=== PATIENT | female | born 1955 | race Caucasian/White ===

== ENCOUNTER 2018-02-21 12:49 | Observation (INO) | payer MEDICAID, SELFPAY ==
[2018-02-21] VITALS (11 sets, daily range): BP systolic 114–184; BP diastolic 82–102; PULSE 69–106; RESP 15–20; TEMP 36.7–37.3; O2SAT 88–99; BMI 20.7; BMI 20.8; BMI 21.1
[2018-02-21] MEDS: 0.9% Normal Saline 1,000 ML 1000 ML IV (13:40)
[2018-02-21] MEDS: Ondansetron 4 MG/2 ML Vial IV (13:40)
--- NOTE | 2018-02-21 13:43 | RAD_ITS ---
STUDY: X-RAY CHEST REASON FOR EXAM: Female, 62 years old. Persistent cough. Asthma. COPD. TECHNIQUE: PA and lateral views of the chest. COMPARISON: Comparison is made with prior study dated February 01, 2017. FINDINGS: EKG electrodes are seen. Hyperinflation. Scattered calcified granulomas. There is no demonstrated pleural abnormality. Normal size heart. Normal mediastinum and estrellita. Normal visualized pulmonary arteries. Normal visualized aortic arch and descending thoracic aorta. Normal visualized thoracic spine. Healed right ninth and 10th rib fractures. Prior fusion of the lower cervical spine. There is no demonstrated abnormality of the visualized soft tissue structures of the upper abdomen. RAD/Chest PA and Lateral IMPRESSION: Hyperinflation. No acute abnormality is seen. There has been no change since prior study. Electronically Signed: Marty Foote MD at 14:28 EDT Tel [phone], Service support ,
[2018-02-21 13:56] LABS: Absolute Lymphocyte Count 1.29 X10^3/ul (0.83-4.51); Absolute Neutrophil Count 2.2 X10^3/uL (2.0-7.7); Basophil# 0.02 X10^3/uL; Basophil% 0.5 % (0-1); Eosinophil# 0.07 X10^3/uL; Eosinophils% 1.7 % (0-5); Hemoglobin 13.9 g/dl (12.0-15.0); Lymphocyte # 1.29 X10^3/ul (4.0); Lymphocyte % 30.6 % (19-41); Mean Corp Hgb Conc 33.9 g/gl (32-36); Mean Corpuscular Hgb 32.9 pg (27.0-32.0); Mean Corpuscular Volume 97.2 fL (81-99); Mean Platelet Vol. 12.1 fl (6.2-12.0); Monocyte# 0.59 X10^3/uL; Neutrophil # 2.23 X10^3/uL (2.7-7.7); Neutrophil % 52.7 % (47-70); Platelet Count 98 K/mm3 (150-450); RBC Distribution Width CV 14.9 % (11.6-14.6); RBC Distribution Width SD 52.5 fl (35.1-43.9); Red Blood Count 4.22 M/mm3 (4.2-5.4); White Blood Count 4.2 K/mm3 (4.4-11.0)
[2018-02-21 13:57] LABS: POSITIVE COUNT NO; POSITIVE DIFFERENTIAL NO; POSITIVE MORPHOLOGY NO
[2018-02-21 14:04] LABS: Anion Gap 8 (5-15); BUN 5 mg/dL (7-18); BUN/Creat Ratio 9.1 RATIO (10-20); Calcium,Total 7.5 mg/dL (8.5-10.1); Chloride 99 mmol/L (98-107); Creatinine, Serum 0.55 mg/dL (0.55-1.02); EST Glomerular Filtration Rate 120 mL/min (>60); Est Glom Filt Rate - Afr Amer 145 mL/min (>60); Estimated Creatinine Clearance 94.78 ml/min; Glucose 94 mg/dL (74-106); Potassium 3.7 mmol/L (3.5-5.1); Sodium Level 133 mmol/L (136-145)
[2018-02-21] MEDS: Acetaminophen 500 MG Tablet 1000 MG PO (14:36)
--- NOTE | 2018-02-21 15:39 | ED.DCSUM_ITS ---
- ER Visit Summary Date of Service: 02/21/18 Chief Complaint: Alcohol withdrawal. History of Present Illness: The patient is a [address] Hermosillo. She reports that she drinks 12 beers per day. She occasionally has liquor. She does not drink any wine. Last drink was 2 hours ago and she reports that she has had 6 beers today. She is concerned that she is in alcohol withdrawal and is spoken with [facility] already. She was sent here for medical clearance as she reported that she was vomiting. Patient denies any abdominal pain. She reports she is vomited 3 times a day. No blood or emesis. She had 4-5 episodes of diarrhea today. No blood in her stools or black tarry stools. She has a cough that is productive clear sputum without blood. Physical Examination: Vitals: Stable. Afebrile. General: Well-nourished and well-developed. Head: Normocephalic atraumatic. Neck: Supple, no lymphadenopathy. No JVD. Nontender. Cardiovascular: Regular rate and rhythm. No murmurs. Respiratory: No respiratory distress. Moderate wheezing bilaterally with good air movement. Abdominal: Soft, nontender, nondistended, normal bowel sounds. No guarding, rebound, or peritoneal signs. Back: Nontender. Extremities: Nontender, no edema. Skin: Normal color, no rash. Neurologic: Alert and oriented ?3. Cranial nerves II through XII are intact. Normal strength and sensation. Psych: Normal affect. Test Results: Chest x-ray shows chronic changes. CBC is marked for white count of 4.2 with 14 mono sites and 98 platelets. Chem-7 more for sodium 133, glucose 112, BUN of 5, calcium 7.5. Alcohol level is 176. Emergency Department Course and Treatment: Patient was treated albuterol Atrovent aerosols. She is given Zofran IV and Tylenol p.o. She is resting comfortably. Treatment Plan: The patient was discussed with [facility]. They have seen her in the emergency department and feel that she is appropriate for their program. She was discussed with Dr. Teague and will be admitted to the hospital for further relation and treatment. Disposition: Admitted in improved condition. Impression: 1. Alcohol abuse. 2. COPD. This note was generated with [employer] software. It may contain incorrect words, spelling, and punctuation that were not noted in review of the chart prior to signing ED Disposition - Plan for ED Patient: Chief Complaint: Subst Abuse
[2018-02-21] MEDS: Ipratropium/Albuterol Sulfate 3 ML AMPUL.NEB INHALATION ×2 (15:42→19:30)
--- NOTE | 2018-02-21 16:03 | HP.PCM_ITS ---
Problem List (1) Tobacco abuse Status: Chronic (2) Alcohol abuse Status: Chronic (3) Depression Status: Chronic (4) Chronic obstructive lung disease Status: Chronic (5) Benign hypertension Status: Chronic History of Present Illness Date of Admission: 02/21/18 Chief Complaint: Alcohol withdrawal The patient is a 62 year old F who presents through [facility] program for acute alcohol withdrawal. Patient has a history of chronic alcoholism and states she has used alcohol since she was 10 years old and currently drinks a 12 pack per day. She last drank a 6 pack this morning. She has a 1-1-1/2 pack per day smoker. She currently complains of tremors and headache. She states she has completed a detox program in the past. She denies history of seizure with withdrawal. Her other past medical history includes COPD, hypertension, depression, tobacco dependence. Past Medical History Past Medical History (Chronic Problems): Chronic Problems Tobacco abuse (Chronic) Alcohol abuse (Chronic) Depression (Chronic) Chronic obstructive lung disease (Chronic) Benign hypertension (Chronic) Allergies No Known Allergies Allergy (Verified 07/29/17 15:15) Home Medications: Ambulatory Orders Medication Instructions Recorded Albuterol Inhaler [Ventolin Hfa] 2 puff INHALATION Q2H PRN #1 05/25/14 inhaler Metoprolol Tartrate [Lopressor 25 mg PO BID 02/01/17 (beta chito)] Omeprazole [Prilosec] 40 mg PO DAILY 02/01/17 Paroxetine HCl [Paxil] 30 mg PO DAILY 02/01/17 traZODone [Desyrel] 100 mg PO QHS 02/01/17 Amlodipine [Norvasc] 5 mg PO DAILY 07/29/17 Hydroxyzine Pamoate [Vistaril] 50 mg PO TID PRN PRN 07/29/17 Lisinopril [Zestril] 40 mg PO DAILY 07/29/17 Surgical History: appendectomy, cholecystectomy Psychiatric History: Anxiety, Depression Smoking Status: Current every day smoker Tobacco Use: Secondhand, Cigarettes - *Family History Maternal History Items: Cancer - Liver Paternal History Items: Cancer - Lung Review of Systems Constitutional: Reports: Malaise. Denies: Chills, Fever, Weight Change HEENT: Denies: Head Aches, Sinus Congestion, Sinus Drainage Cardiovascular: Denies: Chest Pain, Light Headedness, Palpitations, Syncope Respiratory: Reports: Shortness of Breath. Denies: Cough, Sputum production Gastrointestinal: Denies: Abdominal Pain, Nausea, Vomiting Genitourinary: Denies: Dysuria Musculoskeletal: Denies: Joint Pain, Joint Tenderness Skin: Denies: Rash, Wounds Neurological: Reports: Headaches, Tremor. Denies: Focal weakness, Numbness, Tingling Psychiatric: Reports: Anxiety, Depression Hematologic/ Lymphatic: Denies: Easy Bruising, Easy Bleeding VTE Information - Inpt Only VTE Present on Admission: No VTE Mechan Device Prophylaxis: None VTE Pharm Prophylaxis ordered?: No Reason prophylaxis not ordered:: Treatment Not Indicated - Physical Exam General: Alert, Oriented x3, Cooperative, - - Appears restless, tearful HEENT: Atraumatic, PERRLA, EOMI, Normocephalic Oral: - - Poor dentition Neck: Supple, No JVD, Negative Carotid Bruits Lungs: Diminished, Wheezes Cardiovascular: Regular Rhythm, Normal S1, Normal S2, No murmurs, Tachycardic Abdomen: Bowel Sounds Present, Soft, Non Tender, Non-Distended Extremities: No clubbing, No cyanosis, No edema, Capillary Refill Less than 3 Seconds Skin: No rashes, No breakdown Musculoskeletal: No Tenderness to Palpation of Joints or Extremities Neurological: Cranial nerves II-XII grossly intact, Neuro grossly intact Psych/Mental Status: Anxious, Restless Vital Signs Temp Pulse Resp BP Pulse Ox 98.3 F 92 20 H 153/95 H 95 02/21/18 12:50 02/21/18 15:12 02/21/18 15:12 02/21/18 15:12 02/21/18 15:12 Assessment/Plan 1. Acute alcohol withdrawal/alcohol abuse-medical stabilization per protocol. Folic acid and thiamine supplementation. CIWA protocol. Zofran as needed for nausea. Alcohol level on admission 176. 2. COPD with acute hypoxia-no acute exacerbation. Continue albuterol aerosol as needed for shortness of breath. Continue supplemental oxygen as needed to maintain O2 at or above 90%. Wean oxygen as tolerated. 3. Hypertension-stable, continue home regimen of amlodipine, lisinopril, metoprolol. 4. Tobacco dependence-encourage smoking cessation. Nicotine replacement patch if desired. 5. Depression-continue home regimen of fluoxetine, trazodone. 6. GERD-continue omeprazole. DVT prophylaxis- This patient was seen by FRANCISCO Carias under the supervision of Dr. Teague.
[2018-02-21] MEDS: Acetaminophen 325 MG Tablet 650 MG PO (17:00)
[2018-02-21] MEDS: LORazepam 2 MG/ML Syringe IV (17:01)
[2018-02-21] MEDS: cloNIDine HCl 0.1 MG Tablet PO ×2 (18:05→22:23)
[2018-02-21] MEDS: Metoprolol Tartrate 25 MG Tablet PO (22:23)
[2018-02-21] MEDS: chlordiazePOXIDE 25 MG Capsule PO (22:23)
[2018-02-21] MEDS: traZODone 100 MG Tablet PO (22:23)
[2018-02-22] VITALS (13 sets, daily range): BP systolic 97–115; BP diastolic 50–84; PULSE 60–83; RESP 14–20; TEMP 36.6–37.3; O2SAT 95–99
[2018-02-22] MEDS: Ipratropium/Albuterol Sulfate 3 ML AMPUL.NEB INHALATION ×3 (00:35→13:12)
[2018-02-22] MEDS: cloNIDine HCl 0.1 MG Tablet PO ×6 (03:18→21:11)
[2018-02-22] MEDS: chlordiazePOXIDE 25 MG Capsule PO ×3 (03:18→16:53)
[2018-02-22] MEDS: Folic Acid 1 MG Tablet PO (08:50)
[2018-02-22] MEDS: Pantoprazole Sodium 40 MG Tablet PO (08:50)
[2018-02-22] MEDS: PARoxetine 10 MG Tablet 30 MG PO (08:50)
[2018-02-22] MEDS: Thiamine Hydrochloride 100 MG Tablet PO (08:50)
--- NOTE | 2018-02-22 09:31 | PCM.PROGNOTE ---
Subjective: Patient seen and examined. States anxiety is improved. Complains of sore throat and sore spot on tongue. Patient states she has had a spot on her tongue in the past which was biopsied and found to be benign. She states the sore has seemed to reappear. Denies nausea, vomiting, diarrhea. Denies other current complaints. - Physical Exam General: Alert, Oriented x3, Cooperative, No apparent distress HEENT: Atraumatic, PERRLA, EOMI, Normocephalic Neck: Supple, No JVD, Negative Carotid Bruits Lungs: Diminished, Wheezes Cardiovascular: Regular rate, Regular Rhythm, Normal S1, Normal S2, No murmurs Abdomen: Bowel Sounds Present, Soft, Non Tender, Non-Distended Extremities: No clubbing, No cyanosis, No edema, Capillary Refill Less than 3 Seconds Skin: No rashes, No breakdown Musculoskeletal: No Tenderness to Palpation of Joints or Extremities Neurological: Cranial nerves II-XII grossly intact, Neuro grossly intact Psych/Mental Status: Flat Affect Vital Signs Temp Pulse Resp BP Pulse Ox 98.5 F 60 18 97/50 L 96 02/22/18 08:45 02/22/18 08:45 02/22/18 08:45 02/22/18 08:45 02/22/18 08:35 Oxygen Flow Rate (L/min) 2 Oxygen Delivery Method Room Air Weight: 57.6 kg Body Mass Index (BMI) 21.1 Intake and Output for Last 24 Hours 02/20/18 02/21/18 02/22/18 23:59 23:59 23:59 Intake Total 200 / 200 Balance 200 / 200 Medical Necessity - Tobacco Use Smoking Status: Current every day smoker Tobacco Use: Secondhand, Cigarettes Assessment/Plan 1. Acute alcohol withdrawal/alcohol abuse-medical stabilization per protocol. Folic acid and thiamine supplementation. [facility] protocol. Zofran as needed for nausea. Alcohol level on admission 176. 2. COPD with acute hypoxia-no acute exacerbation. Continue albuterol aerosol as needed for shortness of breath. Continue supplemental oxygen as needed to maintain O2 at or above 90%. Wean oxygen as tolerated. 3. Hypertension-stable, continue home regimen of amlodipine, lisinopril, metoprolol. 4. Tobacco dependence-encourage smoking cessation. Nicotine replacement patch if desired. 5. Depression-continue home regimen of fluoxetine, trazodone. 6. GERD-continue omeprazole. DVT prophylaxis-not indicated due to low risk. This patient was seen by FRANCISCO Carias under the supervision of Dr. Teague.
[2018-02-22] MEDS: BENZOCAINE/MENTHOL 1 LOZENGE MUCOUS MEM ×3 (10:50→21:10)
--- NOTE | 2018-02-22 16:00 | CASEMGMT ---
Per physician documentation, patient admitted to [facility] program. Aurelia Prasad, BSN, RN-BC, CCM
[2018-02-22] MEDS: Ibuprofen 600 MG Tablet PO (16:54)
[2018-02-22] MEDS: Acetaminophen 325 MG Tablet 650 MG PO (21:10)
[2018-02-22] MEDS: Metoprolol Tartrate 25 MG Tablet PO (21:11)
[2018-02-22] MEDS: traZODone 100 MG Tablet PO (21:11)
[2018-02-23] VITALS (12 sets, daily range): BP systolic 99–173; BP diastolic 62–92; PULSE 59–72; RESP 16–20; TEMP 36.4–36.8; O2SAT 94–98
[2018-02-23] MEDS: chlordiazePOXIDE 25 MG Capsule PO ×3 (01:42→17:46)
[2018-02-23] MEDS: cloNIDine HCl 0.1 MG Tablet PO ×6 (01:43→21:12)
[2018-02-23] MEDS: Ibuprofen 600 MG Tablet PO ×2 (01:45→15:34)
[2018-02-23] MEDS: Ipratropium/Albuterol Sulfate 3 ML AMPUL.NEB INHALATION ×2 (07:28→13:23)
--- NOTE | 2018-02-23 08:46 | PCM.PROGNOTE ---
Subjective: Patient seen and examined. States she feels improved today. Complains of mild anxiety. Sore throat improved. States she wishes to talk to [facility] tomorrow about inpatient treatment facility at discharge. Denies other complaints. - Physical Exam General: Alert, Oriented x3, Cooperative, No apparent distress HEENT: Atraumatic, PERRLA, EOMI, Normocephalic Neck: Supple, No JVD, Negative Carotid Bruits Lungs: Clear to auscultation, Diminished Cardiovascular: Regular rate, Regular Rhythm, Normal S1, Normal S2, No murmurs Abdomen: Bowel Sounds Present, Soft, Non Tender, Non-Distended Extremities: No clubbing, No cyanosis, No edema, Capillary Refill Less than 3 Seconds Skin: No rashes, No breakdown Musculoskeletal: No Tenderness to Palpation of Joints or Extremities Neurological: Cranial nerves II-XII grossly intact, Neuro grossly intact Psych/Mental Status: Normal Affect, Appropriate Vital Signs Temp Pulse Resp BP Pulse Ox 97.9 F 61 20 H 130/73 H 94 02/23/18 06:06 02/23/18 07:29 02/23/18 07:29 02/23/18 06:06 02/23/18 07:29 Oxygen Flow Rate (L/min) 2 Oxygen Delivery Method Room Air Weight: 57.6 kg Body Mass Index (BMI) 21.1 Intake and Output for Last 24 Hours 02/21/18 02/22/18 02/23/18 23:59 23:59 23:59 Intake Total 1300 / 1300 829 / 829 Balance 1300 / 1300 829 / 829 Medical Necessity - Tobacco Use Smoking Status: Current every day smoker Tobacco Use: Secondhand, Cigarettes Assessment/Plan 1. Acute alcohol withdrawal/alcohol abuse-medical stabilization per protocol. Folic acid and thiamine supplementation. CIWA protocol. Zofran as needed for nausea. Alcohol level on admission 176. 2. COPD with acute hypoxia-no acute exacerbation. Hypoxia resolved. Continue albuterol aerosol as needed for shortness of breath. 3. Hypertension-stable, continue home regimen of amlodipine, lisinopril, metoprolol. 4. Tobacco dependence-encourage smoking cessation. Nicotine replacement patch if desired. 5. Depression-continue home regimen of fluoxetine, trazodone. 6. GERD-continue omeprazole. DVT prophylaxis-not indicated due to low risk. This patient was seen by FRANCISCO Carias under the supervision of Dr. Teague.
[2018-02-23] MEDS: Pantoprazole Sodium 40 MG Tablet PO (09:43)
[2018-02-23] MEDS: PARoxetine 10 MG Tablet 30 MG PO (09:43)
[2018-02-23] MEDS: Folic Acid 1 MG Tablet PO (09:43)
[2018-02-23] MEDS: Thiamine Hydrochloride 100 MG Tablet PO (09:43)
[2018-02-23] MEDS: traZODone 100 MG Tablet PO (21:12)
[2018-02-23] MEDS: Metoprolol Tartrate 25 MG Tablet PO (21:12)
[2018-02-24] VITALS (13 sets, daily range): BP systolic 116–159; BP diastolic 70–82; PULSE 57–67; RESP 16–22; TEMP 36.6–36.8; O2SAT 94–100
[2018-02-24] MEDS: cloNIDine HCl 0.1 MG Tablet PO ×4 (02:38→12:58)
[2018-02-24] MEDS: chlordiazePOXIDE 25 MG Capsule PO (06:12)
[2018-02-24] MEDS: Ipratropium/Albuterol Sulfate 3 ML AMPUL.NEB INHALATION ×2 (07:14→13:03)
[2018-02-24] MEDS: Folic Acid 1 MG Tablet PO (08:42)
[2018-02-24] MEDS: Thiamine Hydrochloride 100 MG Tablet PO (08:42)
[2018-02-24] MEDS: Metoprolol Tartrate 25 MG Tablet PO (08:45)
[2018-02-24] MEDS: Lisinopril 40 MG Tablet PO (08:46)
[2018-02-24] MEDS: Pantoprazole Sodium 40 MG Tablet PO (08:46)
[2018-02-24] MEDS: amLODIPine 5 MG Tablet PO (08:46)
[2018-02-24] MEDS: PARoxetine 10 MG Tablet 30 MG PO (08:46)
--- NOTE | 2018-02-24 09:20 | DCINST_ITS ---
You will use the following diet at home:: Cardiac Discharge Activity: Return to Normal Activity Call your doctor if you observe: Shortness of breath, Dizziness, Fainting spells , Chest pain Allergies/Adverse Reactions: Allergies No Known Allergies Allergy (Verified 07/29/17 15:15) Medications to take at Discharge Albuterol Inhaler [Ventolin Hfa] 2 puff INHALATION Q2H PRN #1 inhaler 05/25/14 Metoprolol Tartrate [Lopressor (beta chito)] 25 mg PO BID 02/01/17 Omeprazole [Prilosec] 40 mg PO DAILY 02/01/17 Paroxetine HCl [Paxil] 30 mg PO DAILY 02/01/17 traZODone [Desyrel] 100 mg PO QHS 02/01/17 Amlodipine [Norvasc] 5 mg PO DAILY 07/29/17 Hydroxyzine Pamoate [Vistaril] 50 mg PO TID PRN PRN 07/29/17 Lisinopril [Zestril] 40 mg PO DAILY 07/29/17 Primary Care Physician: Ulises Hermosillo MD [Primary Care Provider] - Please follow up with your Primary Care Physician in: 1 Week Proposed Discharge Date: 02/24/18
--- NOTE | 2018-02-24 09:22 | PCM.DC.SUM ---
<Tracy Velasquez - Last Filed: 02/24/18 09:28> Discharge Date and Diagnosis Date of Admission: 02/21/18 Date of Discharge: 02/24/18 - Primary Discharge Diagnosis 1. Acute alcohol withdrawal on chronic alcohol abuse 2. Chronic COPD 3. Tobacco dependence 4. Depression 5. GERD - Secondary Discharge Diagnosis Chronic Problems Tobacco abuse (Chronic) Alcohol abuse (Chronic) Depression (Chronic) Chronic obstructive lung disease (Chronic) Benign hypertension (Chronic) Hospital Course and Treatment Imaging Results: Diagnostic Data Chest X-Ray 02/21/18 13:43 IMPRESSION: Hyperinflation. No acute abnormality is seen. There has been no change since prior study. Electronically Signed: Marty Foote MD at 14:28 EDT Tel [phone], Service support , Operations: None Procedures: None Summary of Care Provided: Patient is a 62-year-old female admitted 02/21/18 due to alcohol withdrawal. She has a past medical history of chronic alcohol abuse, tobacco dependence, depression, COPD, hypertension, GERD. 1. Acute alcohol withdrawal/alcohol abuse-Alcohol level on admission 176. Patient completed medical stabilization per [facility] protocol. Patient is stable for discharge. Her plan at discharge is for inpatient admission to [facility] facility. 2. COPD with acute hypoxia-no acute exacerbation. Hypoxia resolved. Continue albuterol inhaler as needed for shortness of breath. Recommend outpatient follow up with pulmonary. 3. Hypertension-stable, continue home regimen of amlodipine, lisinopril, metoprolol. 4. Tobacco dependence-encourage smoking cessation. 5. Depression-continue home regimen of fluoxetine, trazodone. 6. GERD-continue omeprazole. General: Alert, Oriented x3, Cooperative, No apparent distress HEENT: Atraumatic, PERRLA, EOMI, Normocephalic Neck: Supple, No JVD, Negative Carotid Bruits Lungs: Clear to auscultation, Diminished Cardiovascular: Regular rate, Regular Rhythm, Normal S1, Normal S2, No murmurs Abdomen: Bowel Sounds Present, Soft, Non Tender, Non-Distended Extremities: No clubbing, No cyanosis, No edema, Capillary Refill Less than 3 Seconds Skin: No rashes, No breakdown Musculoskeletal: No Tenderness to Palpation of Joints or Extremities Neurological: Cranial nerves II-XII grossly intact, Neuro grossly intact Psych/Mental Status: Normal Affect, Appropriate Patient seen and examined prior to discharge. Physical assessment as noted above. Patient is stable for discharge. Her plan at discharge is for inpatient admission to [facility] inpatient [facility] abuse treatment facility. This patient was seen by FRANCISCO Carias under the supervision of Dr. Ross. Discharge Diet: Low fat/ Low Cholesterol Discharge Activity: Return to Normal Activity Call your doctor if you observe: Shortness of breath, Dizziness, Fainting spells, Chest pain Home Medications: Medications to take at Discharge Albuterol Inhaler [Ventolin Hfa] 2 puff INHALATION Q2H PRN #1 inhaler 05/25/14 Metoprolol Tartrate [Lopressor (beta chito)] 25 mg PO BID 02/01/17 Omeprazole [Prilosec] 40 mg PO DAILY 02/01/17 Paroxetine HCl [Paxil] 30 mg PO DAILY 02/01/17 traZODone [Desyrel] 100 mg PO QHS 02/01/17 Amlodipine [Norvasc] 5 mg PO DAILY 07/29/17 Hydroxyzine Pamoate [Vistaril] 50 mg PO TID PRN PRN 07/29/17 Lisinopril [Zestril] 40 mg PO DAILY 07/29/17 Primary Care Physician: Ulises Hermosillo MD [Primary Care Provider] - Please follow up with your Primary Care Physician in: 1 Week Disposition: Home Minutes spent on discharge:: 35 Patient Condition:: Stable Medical Necessity - Tobacco Use Smoking Status: Current every day smoker Tobacco Use: Secondhand, Cigarettes Meaningful Use Info Meaningful Use Diagnoses (Choose all that apply): None applicable <Kat Ross - Last Filed: 02/24/18 13:23> Discharge Date and Diagnosis - Secondary Discharge Diagnosis Chronic Problems Tobacco abuse (Chronic) Alcohol abuse (Chronic) Depression (Chronic) Chronic obstructive lung disease (Chronic) Benign hypertension (Chronic) Hospital Course and Treatment Summary of Care Provided: The patient is a 62 year old F [] Code Visit Inpatient E&M: 62888 Disch Hosp - co-ordinating care
--- NOTE | 2018-02-24 09:28 | DS.PCM_ITS ---
<Tracy Velasquez - Last Filed: 02/24/18 09:28> Discharge Date and Diagnosis Date of Admission: 02/21/18 Date of Discharge: 02/24/18 - Primary Discharge Diagnosis 1. Acute alcohol withdrawal on chronic alcohol abuse 2. Chronic COPD 3. Tobacco dependence 4. Depression 5. GERD - Secondary Discharge Diagnosis Chronic Problems Tobacco abuse (Chronic) Alcohol abuse (Chronic) Depression (Chronic) Chronic obstructive lung disease (Chronic) Benign hypertension (Chronic) Hospital Course and Treatment Imaging Results: Diagnostic Data Chest X-Ray 02/21/18 13:43 IMPRESSION: Hyperinflation. No acute abnormality is seen. There has been no change since prior study. Electronically Signed: Marty Foote MD at 14:28 EDT Tel [phone], Service support , Operations: None Procedures: None Summary of Care Provided: Patient is a 62-year-old female admitted 02/21/18 due to alcohol withdrawal. She has a past medical history of chronic alcohol abuse, tobacco dependence, depression, COPD, hypertension, GERD. 1. Acute alcohol withdrawal/alcohol abuse-Alcohol level on admission 176. Patient completed medical stabilization per [facility] protocol. Patient is stable for discharge. Her plan at discharge is for inpatient admission to [facility] inpatient substance abuse treatment facility. 2. COPD with acute hypoxia-no acute exacerbation. Hypoxia resolved. Continue albuterol inhaler as needed for shortness of breath. Recommend outpatient follow up with pulmonary. 3. Hypertension-stable, continue home regimen of amlodipine, lisinopril, metoprolol. 4. Tobacco dependence-encourage smoking cessation. 5. Depression-continue home regimen of fluoxetine, trazodone. 6. GERD-continue omeprazole. General: Alert, Oriented x3, Cooperative, No apparent distress HEENT: Atraumatic, PERRLA, EOMI, Normocephalic Neck: Supple, No JVD, Negative Carotid Bruits Lungs: Clear to auscultation, Diminished Cardiovascular: Regular rate, Regular Rhythm, Normal S1, Normal S2, No murmurs Abdomen: Bowel Sounds Present, Soft, Non Tender, Non-Distended Extremities: No clubbing, No cyanosis, No edema, Capillary Refill Less than 3 Seconds Skin: No rashes, No breakdown Musculoskeletal: No Tenderness to Palpation of Joints or Extremities Neurological: Cranial nerves II-XII grossly intact, Neuro grossly intact Psych/Mental Status: Normal Affect, Appropriate Patient seen and examined prior to discharge. Physical assessment as noted above. Patient is stable for discharge. Her plan at discharge is for inpatient admission to [facility] inpatient substance abuse treatment facility. This patient was seen by FRANCISCO Carias under the supervision of Dr. Ross. Discharge Diet: Low fat/ Low Cholesterol Discharge Activity: Return to Normal Activity Call your doctor if you observe: Shortness of breath, Dizziness, Fainting spells , Chest pain Home Medications: Medications to take at Discharge Albuterol Inhaler [Ventolin Hfa] 2 puff INHALATION Q2H PRN #1 inhaler 05/25/14 Metoprolol Tartrate [Lopressor (beta chito)] 25 mg PO BID 02/01/17 Omeprazole [Prilosec] 40 mg PO DAILY 02/01/17 Paroxetine HCl [Paxil] 30 mg PO DAILY 02/01/17 traZODone [Desyrel] 100 mg PO QHS 02/01/17 Amlodipine [Norvasc] 5 mg PO DAILY 07/29/17 Hydroxyzine Pamoate [Vistaril] 50 mg PO TID PRN PRN 07/29/17 Lisinopril [Zestril] 40 mg PO DAILY 07/29/17 Primary Care Physician: Ulises Hermosillo MD [Primary Care Provider] - Please follow up with your Primary Care Physician in: 1 Week Disposition: Home Minutes spent on discharge:: 35 Patient Condition:: Stable Medical Necessity - Tobacco Use Smoking Status: Current every day smoker Tobacco Use: Secondhand, Cigarettes Meaningful Use Info Meaningful Use Diagnoses (Choose all that apply): None applicable <Kat Ross - Last Filed: 02/24/18 13:23> Discharge Date and Diagnosis - Secondary Discharge Diagnosis Chronic Problems Tobacco abuse (Chronic) Alcohol abuse (Chronic) Depression (Chronic) Chronic obstructive lung disease (Chronic) Benign hypertension (Chronic) Hospital Course and Treatment Summary of Care Provided: The patient is a 62 year old F [] Code Visit Inpatient E&M: 92144 Disch Hosp - co-ordinating care
--- NOTE | 2018-02-24 10:33 | NURSING ---
BP 135/81, pulse 58
[2018-02-24] MEDS: Tuberculin,Purif.prot.deriv. 50 TU/ML Vial 5 ML ID (12:15)
[2018-02-24] MEDS: Methocarbamol 750 MG Tablet PO (12:58)
--- NOTE | 2018-02-24 13:49 | CHAPLAIN ---
Type of Pastoral Visit _x__ Initial Visit ___ Follow-up Visit ___ On-call Visit ___ General Patient Visit ___ Spiritual Assessment ___ Family Conference ___ Bereavement ___ Rapid Response ___ Code Blue ___ Other (describe below) Pastoral Care Referral From _x__ Patient ___ Family ___ Nurse ___ Physician ___ Track [employer] Supervisor ___ Welfare Interviewer ___ Other (describe below) Sacrament/Intervention ___ Active listening ___ Anointing ___ Yarsanism ___ Bereavement ___ Communion ___ Renita exploration ___ ___ Life review ___ Prayer ___ Reconciliation ___ Sacrament of Sick _x__ Supportive presence ___ Wedding ___ Other (describe below) Pastoral Comments patient was eating her lunch and then RT came to give a breathing treatment; offered support for later time; explained my role and desire to be of help to her recovery;
== END 2018-02-24 14:28 | disposition home or self-care (01) | DRG 434 ==
LOC: ED 14:14 → MS2 15:12
PROVIDERS: Admitting Provider Internal Medicine; Emergency Provider Emergency Medicine; Family Provider Internal Medicine; PCP Internal Medicine; Visit Provider Internal Medicine
DX: F10.239 Alcohol dependence with withdrawal, unspecified (principal); J44.9 Chronic obstructive pulmonary disease, unspecified; Y90.6 Blood alcohol level of 120-199 mg/100 ml; I10 Essential (primary) hypertension; F17.210 Nicotine dependence, cigarettes, uncomplicated; F32.9 Major depressive disorder, single episode, unspecified; F41.9 Anxiety disorder, unspecified; R09.02 Hypoxemia; K21.9 Gastro-esophageal reflux disease without esophagitis; Z79.899 Other long term (current) drug therapy
CPT/HCPCS: 71046; 80048; 80320; 85025; 94640; 97802; 99218; 99285; 99406; J7030; A4216; G0378; G0480; J2405

== ENCOUNTER → 2018-08-18 09:29 | Outpatient (CLI) | payer MEDICAID, SELFPAY ==
--- NOTE | 2018-08-18 10:10 | RAD_ITS ---
INDICATION: Severe right hip pain. Right hip osteoporosis. FLUOROSCOPIC GUIDED RIGHT HIP ARTHROGRAM FLUOROSCOPY TIME (if supplied): (0: 29) seconds Dose: 5.77 mGy Placement of the intra-articular needle and the procedure were performed by: Radiologist Dr. Cornejo. TECHNIQUE: Fluoroscopy and fluoroscopic spot imaging were performed by Radiologist. Radiologist present during the entire procedure. Informed consent was obtained prior to any intervention. A timeout was also performed prior to any intervention to confirm the correct patient and body part of interest for intervention. The area of interest was also marked prior to any intervention. Procedure: All elements of maximal sterile barrier technique were followed, to include US elements as applicable Using sterile technique the anterior aspect of the right hip and inguinal region cleansed and draped appropriately. The femoral vessels were palpated by the physician and subsequently marked so the needle placement was lateral to this region. A fluoroscopic image was obtained prior to needle placement. A 25-gauge standard 3.5 cm length needle was advanced to the right hip head neck junction, using intermittent fluoroscopy to check needle tip position. A 10 mL solution containing lidocaine, Isovue iodinated contrast and than prescribed medication mixture (80 mg Kenalog and 3 cc Marcaine) as ordered was injected into the right hip joint under fluoroscopic observation. Fluoroscopic images demonstrate opacification of the right hip joint and some mild extravasation into the surrounding soft tissues. No complications occurred immediately after the procedure. RAD/Inj/Asp Fan Jt Should/Hip/Knee IMPRESSION: Technically successful fluoroscopic guided right hip arthrogram as described. Electronically Signed: Fransico Cornejo, at 13:25 EDT Tel , Service support ,
== END ==
PROVIDERS: Family Provider Nurse Practitioner; PCP Nurse Practitioner; Referring Provider Orthopaedic Surgery; Visit Provider Orthopaedic Surgery
DX: M16.11 Unilateral primary osteoarthritis, right hip (principal); M25.551 Pain in right hip; G89.29 Other chronic pain; M81.0 Age-related osteoporosis without current pathological fracture
CPT/HCPCS: 20610; 77002; Q9967

== ENCOUNTER → 2019-08-24 14:22 | Outpatient (CLI) | payer MEDICAID, SELFPAY ==
--- NOTE | 2019-08-24 14:27 | CT_ITS ---
STUDY: CTA OF THE ABDOMINAL AORTA AND BILATERAL LOWER EXTREMITIES REASON FOR EXAM: Female, 64 years old. ISCHEMIA OF LOWER EXT BILAT, N/T TO BILAT LEGS -RT WORSE THAN LEFT, PAIN SINCE RT TOTAL HIP IN MARCH, HTN, SMOKER X 1.5 PPD RADIATION DOSAGE (If Supplied By Facility): CTDIvol = ( 6.76 ) mGy, DLP = ( 1147.53 ) mGycm TECHNIQUE: Axial CT angiography multi-detector data acquisition was obtained from the lower chest to the feet following intravenous administration of IV Isovue 370 100. Axial images and MIP images were reconstructed from the axial data set. Post-processing of the angiographic images was performed, with multiplanar reformation and 3D reconstruction. Individualized dose optimization techniques were used for this CT. TECHNICAL QUALITY: Good COMPARISON: None. Descriptors of Narrowing: None (0%) Mild (< 50%) Moderate (50-70%) Severe (70-90%) Subtotal/Total Occlusion (90-100%) Non-Evaluable (technically non-diagnostic FINDINGS: Extensive soft and calcified plaque throughout the arteries of the abdomen, pelvis, and lower extremities. Otherwise: Abdominal aorta: No demonstrated narrowing. Celiac and superior mesenteric arteries: No demonstrated narrowing. Inferior mesenteric artery: High-grade stenosis of the origin. Right renal artery(arteries): No demonstrated narrowing. Left renal artery(arteries): No demonstrated narrowing. Right common iliac artery: No demonstrated narrowing. Right external iliac artery: Multiple moderate tandem stenoses. Right internal iliac artery: No demonstrated narrowing. Left common iliac artery: No demonstrated narrowing. Left external iliac artery: Midportion high-grade stenosis. Left internal iliac artery: No demonstrated narrowing. RIGHT LOWER EXTREMITY Right common femoral artery: Focal proximal high-grade stenosis. Right profundus femoris: No demonstrated narrowing. Right superficial femoral: Proximal and mid portions are occluded. Reconstitution of flow distally. Right popliteal artery: Focal occlusion. Right tibioperoneal trunk: No demonstrated narrowing. Right anterior tibial artery: No demonstrated narrowing. Right posterior tibial artery: No demonstrated narrowing. Right peroneal artery: No demonstrated narrowing. LEFT LOWER EXTREMITY Left common femoral artery: No demonstrated narrowing. Left profundus femoris: No demonstrated narrowing. Left superficial femoral: Proximal and mid portions are occluded. Reconstitution of flow distally. Left popliteal artery: No demonstrated narrowing. Left tibioperoneal trunk: No demonstrated narrowing. Left anterior tibial artery: Focal proximal high-grade stenosis. Left posterior tibial artery: No demonstrated narrowing. Left peroneal artery: No demonstrated narrowing. 31 x 23 mm right adrenal adenoma. Remote rib trauma. Right hip arthroplasty. CT/CTA Abd w/Runoff W/WO Contrast IMPRESSION: Occlusions of the mid and distal portions of the bilateral superficial femoral arteries. High-grade stenosis of the origin of the JOSR. High-grade stenosis of the midportion of the left external iliac artery. High-grade stenosis of the proximal right POULTRY KILLER. High-grade stenosis of the proximal left JANETTE. Electronically Signed: Arnoldo Ordonez MD at 21:20 EDT Tel , Service support ,
== END ==
PROVIDERS: Family Provider Internal Medicine; PCP Internal Medicine
DX: I99.8 Other disorder of circulatory system (principal)
CPT/HCPCS: 75635; Q9967

== ENCOUNTER → 2021-02-03 13:33 | Outpatient (CLI) | payer MEDICARE, MEDICAID, SELFPAY ==
--- NOTE | 2021-02-03 13:39 | CT_ITS ---
STUDY: LOW DOSE CT LUNG CANCER SCREENING REASON FOR EXAM: Female, 65 years old. HX TOBACCO USE. The patient smoked 2 packs per day for 40 years. History of COPD. RADIATION DOSAGE (If Supplied By Facility): CTDIvol = ( 2.01 ) mGy, DLP = ( 66.20 ) mGycm TECHNIQUE: No contrast was administered. Low dose technique was utilized (average mAS-38 and kVp 120). 1.25 mm axial source images with a slice interval of 1.25-mm were reconstructed in lung windows. 2.5 mm axial source images with a slice interval of 2.5-mm were reconstructed in lung windows. 5.0 mm axial source images with a slice interval of 5.0-mm were reconstructed in soft tissue windows. Nodule measured using lung windows on PACS and/or independent workstation with automated measurement of minimum and maximum diameter. Nodule measurement reported as average diameter rounded to the nearest whole number. Growth is defined as an increase ins size of greater than 1.5 mm. COMPARISON: None. NODULES: No suspicious nodules are seen. Emphysema: Hyperinflation. Emphysematous changes more prominent in the upper lobes. Endobronchial lesion: None Aorta: Atherosclerotic calcification of the aortic arch. Coronary arteries: Coronary artery calcification. Mediastinal nodes: Benign-appearing mediastinal lymph nodes. Other chest and abdominal findings: Healed bilateral rib fractures. CT/Low Dose CT Lung Screening IMPRESSION: Lung-RADS category 2 - Continue annual screening with LDCT in 12 months. IMPORTANT NOTES FOR USE: ACR Lung-RADS Version 1.0 Assessment Categories Release Date: March 08, 2014 Category: Coded 0-4 bases on nodule(s) with highest degree of suspicion. Negative screen is defined as categories 1 and 2; a positive screen is defined as categories 3 and 4. Category 3 and 4A nodules that are unchanged on interval CT should be coded as category 2, and individuals returned to screening in 12 months. Category 4X: Category 3 or 4 nodules with additional imaging findings that increase the suspicion of lung cancer, such as spiculation, GGN that doubles in size in 1 year, enlarged lymph notes, etc. Category Modifiers: S (significant finding unrelated to lung cancer) and C (prior history of treated lung cancer) may be added to the 0-4 Lung-RADS Electronically Signed: Marty Foote MD at 14:22 EDT , Service support ,
== END ==
PROVIDERS: PCP Internal Medicine
DX: Z12.2 Encounter for screening for malignant neoplasm of respiratory organs (principal); Z87.891 Personal history of nicotine dependence
CPT/HCPCS: 71271

== ENCOUNTER 2023-01-02 17:53 | Inpatient (IN) | payer MEDICARE, MEDICAID, SELFPAY ==
[2023-01-02] VITALS (12 sets, daily range): BP systolic 113–154; BP diastolic 64–88; PULSE 86–101; RESP 16–26; TEMP 36.4–36.9; O2SAT 87–98; BMI 21.8; BMI 21.4; BMI 21.3
--- OUTSIDE RECORDS SUMMARY | 2023-01-02 17:56 | XMS RPT_ITS | CCD ---
:1955 Author Organization [facility] Care Team Providers Name Role Phone PROVIDER, UNKNOWN Unavailable Unavailable No, PCP Unavailable Unavailable Qasim Martinez Unavailable Unavailable Bay CASTILLO, Ulises Deal Primary Care Provider BAY CASTILLO, DR ALDRICH Primary Care Physician Bay CASTILLO, Ulises Deal Primary Care Provider ULISES HERMOSILLO Primary Care Unavailable TRACY RAMIRES Referring Unavailable ULISES HERMOSILLO Primary Care Unavailable TRACY RAMIRES Referring Unavailable ULISES HERMOSILLO Primary Care Unavailable PROVIDER, UNKNOWN Referring Unavailable ULISES HERMOSILLO Primary Care Unavailable Bay CASTILLO, Ulises Deal Primary Care Provider ULISES HERMOSILLO Attending Unavailable ULISES HERMOSILLO Referring Unavailable BAY, ULISES Deal Primary Care Unavailable SAVANNA KENNY Referring Unavailable ULISES HERMOSILLO Primary Care Unavailable MARGARET SHRESTHA Attending Unavailable SAVANNA KENNY Referring Unavailable ULISES HERMOSILLO Primary Care Unavailable SAVANNA KENNY Referring Unavailable ULISES HERMOSILLO Primary Care Unavailable ULISES HERMOSILLO Attending Unavailable ULISES HERMOSILLO Primary Care Unavailable MARGARET SHRESTHA A Referring Unavailable BAY, ULISES Deal Primary Care Unavailable TRACY RAMIRES Referring Unavailable BAY, ULISES Deal Primary Care Unavailable SAVANAN KENNY Attending Unavailable SAVANNA KENNY Referring Unavailable BAY, ULISES Deal Primary Care Unavailable OLDER, OLY Attending Unavailable BAY, ULISES Deal Primary Care Unavailable TAWNY SELF Referring Unavailable BAY, ULISES Deal Primary Care Unavailable TAWNY SELF Attending Unavailable ULISES HERMOSILLO Referring Unavailable ULISES HERMOSILLO Primary Care Unavailable SALIMA ASHER Attending Unavailable ULISES HERMOSILLO Primary Care Unavailable TRACY RAMIRES Attending Unavailable TRACY RAMIRES Referring Unavailable ULISES HERMOSILLO Primary Care Unavailable SAVANNA KENNY Attending Unavailable ULISES HERMOSILLO Primary Care Unavailable TRACY RAMIRES Attending Unavailable TRACY RAMIRES Referring Unavailable ULISES HERMOSILLO Primary Care Unavailable EMMANUEL KILLIAN Attending Unavailable BAY CASTILLO., DR. ALDRICH Primary Care Unavailable RUPESH CASTILLO, BETINA Post Consulting Unavailable ZINA GLOVER Attending Unavailable BAY CASTILLO., DR. ALDRICH Primary Care Unavailable LAURYN CASTILLO, JOSE ROBERTO Hopson Attending Unavailable BAY CASTILLO., DR. ALDRICH Primary Care Unavailable RUPESH CASTILLO, BETINA Post Admitting Unavailable BAY CASTILLO., DR. ALDRICH Primary Care Unavailable KARSTEN CASTILLO, LAVERNE Attending Unavailable Medications Current Medications Medication Drug Class(es) Dates Sig (Normalized) Sig (Orig inal) albuterol MDI (90 mcg/inh) CFC free inhalation aerosol Start: take 2 puff(s) by albuterol MDI (90 (4 sources) 06-14-2021 inhalation four mcg/inh) CFC free times daily as inhalation needed for wheezing aerosol 2 puff(s), Inhalation, QID , PRN as needed f or wheezing, # 18 gram(s), 0 Refill(s) Start Date: 06/14/21 Status: Ordered Aspirin Platelet Start: aspirin Dose : 81 (20 sources) Aggregation 05-02-2022 mg =, Chewed, Inhibitor, qDay, 0 Refill( s) Nonsteroidal Start Date: Anti-inflammatory 05/02/22 St atus: Drug Ordered Start: 12-04-2021 take 1 tablet by mouth once aspirin 81 m g chewable tablet Take daily 1 tablet by mouth on ce daily. 90 tablet 3 12/04/2021 Active Comment on above: Take 1 tablet by mouth once daily. atorvastatin 80 mg oral tablet HMG-CoA Reductase Start: 12-25-2021 atorvastatin 80 mg (20 sources) Inhibitor End: 11-26-2022 oral tablet Dose : 80 mg = 1 tab(s), Oral, qDay, # 30 tab( s), 0 Refill(s) Start Date: 05/02/22 Status: Ordered Comment on above: TAKE 1 TABLET BY MOUTH EVERY DAY Take 1 tablet by mouth once daily. cefdinir 300 mg oral capsule Cephalosporin Start: 05-05-2022 cefdinir 300 mg oral (1 source) Antibacterial End: 05-08-2022 capsule Dos e : 300 mg = 1 cap(s), Ora l, q12h, X 3 day(s ), # 6 cap(s), 0 Refil l(s), 05/08/22 11:02: 00 EDT, Pharmacy: [facility]/pharmacy #[id number], 165.1, cm, 04/12 01/02 9:53:00 EDT, He ight, 60 Start Date: 05/05/22 Stop Da te: 05/08/22 Status: Ordered doxycycline hyclate 100 mg oral capsule Tetracycline-class Start: 12-27-2021 doxycycline hyclate (1 source) Drug End: 11-02-2022 100 mg oral capsule Dose : 100 mg = 1 cap(s), Oral, q 12h, X 7 day(s), # 14 cap(s), 0 Refil l(s), 11/02/22 19:44: 00 EST, Acute exacerbation of COPD, 60 Start Date: 10/26/22 Stop D ate: 11/02/22 Status : Ordered Inhalational Spacing Device (AEROCHAMBER MV) Start: Inhalational Spacing (1 source) End: 06-04-2022 Device (AERO CHAMBER MV) 1 Device on e time only for 1 dose . 1 Each 0 06/04/20 22 06/04/2022 Acti ve Comment on above: 1 Device one time only for 1 dose. 24 hr isosorbide mononitrate 30 mg extended release or al tablet Nitrate Vasodilator Start: 05-02-2022 isosorbide mononitra te (20 sources) 30 mg oral tabl et, extended releas e Dose : 30 mg = 1 tab (s), Oral, qAM, # 30 tab(s), 0 Refil l(s) Start Date: 04/12 01/02 Status: Ordered Start: 01-01-2022 take 1 tablet by mouth once isosorbide m ononitrate ER (IMDUR) 30 daily mg 24 hr tablet TAKE 1 TABLET BY MOUTH EVERY DAY 90 t ablet 3 01/01/2022 Active Comment on above: TAKE 1 TABLET BY MOUTH EVERY DAY LORazepam 0.5 mg oral tablet Benzodiazepine Start: 12-23-2022 Ativan 0.5 mg oral tablet (8 sources) End: 12-26-2022 Dose : 0.5 m g = 1 tab(s), Oral, q8h, PRN as needed for anxiety, X 3 day(s), # 9 tab(s), 0 Ref ill(s), 12/26/22 16:04: 00 EST, Anxiety reactio n Acute exacerbation of COPD, 60 Start Date: 12/12 01/03 Stop Date: 12/26/22 S tatus: Ordered Start: 08-31-2022 take 1 tablet by mouth every LORazepam ( ATIVAN) 1 mg tablet End: 11-29-2022 eight hours as needed for Indications: S ituational anxiety anxiety and anxiety Take 1 tablet by mala th every 8 hours as needed for anxiety for up to 90 days. 15 table t 0 08/31/2022 11/29/2022 Active Comment on above: Take 1 tablet by mouth every 8 hours as needed for anxiety for up to 90 days. predniSONE 50 mg oral tablet Start: 12-24-2022 predniSONE 50 mg oral tablet (7 sources) End: 12-30-2022 Dose : 50 mg = 1 tab(s), Oral, qDayM, # 5 tab( s), 0 Refill(s), 12/30/22 0:00:0 0 EST, Anxiety reaction Acut e exacerbation of COPD Start Date : 12/24/22 Stop Date: 12/30/22 S tatus: Ordered Start: 11-26-2022 predniSONE (DELTASON E) 10 mg tablet Take two daily for 5 days then one daily for 1 0 days 20 tablet 0 11/26/2022 Active Start: 10-26-2022 predniSONE 20 mg ora l tablet Dose : 40 mg = 2 tab(s), Oral, End: 11-02-2022 qDayM, X 7 day(s), # 14 tab(s), 0 Refill(s), 11/02/22 19:45:00 EST, Acute exacerbat ion of COPD Start Date: 10/26/22 Stop Date: 11/02/22 Status: Ord ered Start: 05-05-2022 predniSONE 20 mg ora l tablet Dose : 40 mg = 2 tab(s), Oral, End: 05-08-2022 qDayM, X 3 day(s), # 6 tab(s), 0 Refill(s), 05/08/22 11:01:00 EDT, Pharmacy: [id number], 165.1, cm, 05/02/22 9:53:00 EDT, Height Start Da te: 05/05/22 Stop Date: 05/08/22 Status: Ordered Comment on above: Take two daily for 5 days th en one daily for 10 days Symbicort 160 mcg-4.5 mcg/inh Inhaler Start: take 1 dose by Symbicort 160 mcg-4.5 (3 sources) inhalation twice mcg/inh Inh aler Dose = daily 2 puff(s), Inha lation, BID, # 10.2 gra m(s), 0 Refill(s), Phar randell: [facility]/pharmacy #[id number], 165.1, cm, 04/12 01/02 9:53:00 EDT, He ight Start Date: 04/12 04/01 Status: Ordered Trelegy Ellipta 200 mcg-62.5 mcg-25 mcg/inh inhalation powde r Start: 12-23-2022 take 1 dose by Trelegy Ellipta 200 (1 source) inhalation once daily mcg-62 .5 mcg-25 mcg/inh inhalation powd er Dose = 1 puff(s), Inhalation, qDa y, at the same time e very day, 0 Refill(s ) Start Date: 12/23/22 S tatus: Ordered Completed/Discontinued Medications Medication Drug Class(es) Dates Sig (Normalized) Sig (Orig inal) acetaminophen 500 mg oral tablet Start: take 1 t ablet by acetaminophen (8 sources) 09-05-2022 mouth every eight (TYLENOL E XTRA hours as needed for STRENGTH ) 500 mg pain tablet Indicati ons: Thrush (oral) T kimberli 1 tablet by mala th every 8 hours a s needed for pain . 30 tablet 0 2021 Active Comment on above: Take 1 tablet by mouth every 8 hours as needed for pain. acetaminophen 325 mg / oxyCODONE hydrochloride 5 mg oral tab let Opioid Start: 10-10-2021 take 1 oxyCODONE-acetaminophen (7 sources) Agonist End: 05-11-2022 tablet by (PERCOCET) 5 -325 mg tablet mouth every Indications: Cl osed fracture eight hours of right elbow with as needed nonunion, subse quent encounter Take 1 tablet by mouth every 8 h ours as needed. Patient has a fractured elbow and due to cardiac reasons cannot have surgery at this time, and will require gr eater than 30 MEDD to treat c hronic pain (ICD-10 code G8 9.18). 15 tablet 0 202005/11/2022 Disc ontinued Comment on above: Take 1 tablet by mouth every 8 hours as needed. Patient has a fractured elbow and due to c ardiac reasons cannot have surgery at this time, and will require greater than 30 MEDD to treat chronic pain (ICD-10 code G89.18). [id number] 200 actuat albuterol 0.09 mg/actuat metered dose inhaler beta2-Adrenergic Start: 10-19-2021 take 2 puff(s) albuterol HFA (20 sources) Agonist End: 06-06-2022 by inhalation (VENTOLIN H FA) 90 every six mcg/actuation i nhaler hours as Indications: Wh eezing needed for Inhale 2 Puffs as wheezing instructed ever y 6 hours as needed for wheezing/shortn ess of breath. 80 g 11 06/06/2022 Acti ve Comment on above: Inhale 2 Puffs as instructed every 6 hours as needed for wheezing/shortness of breath . amLODIPine 10 mg oral tablet Dihydropyridine Start: 06-07-2021 take 1 tablet amLODIPine (20 sources) Calcium Channel End: 05-29-2022 by mouth once (NORVASC ) 10 mg Janki daily tablet TAKE 1 TABLET BY MOUTH EVERY DAY 90 tablet 3 05/29/2022 Active Comment on above: TAKE 1 TABLET BY MOUTH EVERY DAY Budesonide / formoterol Corticosteroid, Start: 07-23-2022 take 2 budesonide-formoterol (17 sources) beta2-Adrenergic End: 08-31-2022 puff(s) by (SYMBICO RT) 160-4.5 Agonist inhalation mcg/actuation i nhaler twice daily Inhale 2 Puffs as instructed twic e daily. 1 Each 0 202108/31/2022 Disc ontinued (Discontinued b y another Health Care Pro vider) Start: 07-23-2022 take 2 puff(s) by budesonide-formotero l (SYMBICORT) inhalation twice daily 160-4.5 mcg/actua tion inhaler Inhale 2 Puffs as instructed twice daily. 1 Each 0 07/23/2022 Ac tive Start: 05-25-2022 take 2 puff(s) by budesonide-formotero l (SYMBICORT) End: 06-06-2022 inhalation twice daily 160-4.5 mcg/actua tion inhaler Inhale 2 Puffs as instructed twice daily. 1 Each 0 05/25/2022 Discontinued Start: 05-25-2022 take 2 puff(s) by budesonide-formotero l (SYMBICORT) inhalation twice daily 160-4.5 mcg/actua tion inhaler Inhale 2 Puffs as instructed twice daily. 1 Each 0 05/25/2022 Ac tive Start: 05-05-2022 take 2 puff(s) by SYMBICORT 160-4.5 mc g/actuation End: 05-25-2022 inhalation twice daily inhaler Inhale 2 Puffs as instructed twice daily. 0 05/0505/25/2022 Discontinued Comment on above: Inhale 2 Puffs as instructed twice daily. carvedilol 6.25 mg oral tablet alpha-Adrenergic Start: 12-26-2021 t kimberli 1 carvedilol (20 sources) Janki, End: 08-31-2022 tablet by (COREG) 6.25 mg beta-Adrenergic Janki mouth twice tabl et Take 1 daily tablet by mouth twice daily. 18 0 tablet 1 08/31/2022 Active Comment on above: TAKE 1 TABLET BY MOUTH TWICE A DAY Take 1 tablet by mouth twice daily. clopidogrel 75 mg oral tablet [id number] Platelet Start: 11-18-2019 take 1 tablet clopidogrel (20 sources) Inhibitor End: 09-05-2022 by mouth once (PLAVIX) 75 mg daily tablet Indicati ons: PAD (peripheral artery disease) (HCC) Take 1 ta blet by mouth once daily. 90 table t 3 01/05/2021 Acti ve Comment on above: Take 1 tablet by mouth once daily. jfdwyunqlhl-jwmlqfyeh-jmrkwkub (TRELEGY ELLIPTA) 200-62.5-25 mcg inhalation powder Start: take 1 fluticasone-umec lidin-vilanter (19 sources) 11-26-2022 puff(s) by (TRELEGY ELLIPT A) 200-62.5-25 inhalation mcg inhalation powder Inhale 1 once daily Puff as instruc gilda once daily. 60 Each 11/11 Active Start: 11-26-2022 take 1 puff(s) by fluticasone-umeclidi n-vilanter (TRELEGY End: 12-26-2022 inhalation once daily ELLIPTA) 200-62.5- 25 mcg inhalation powder Inhale 1 Puff as ins tructed once daily. 60 Each 11/26/2022 0 12/26/2022 Active Start: 07-23-2022 take 1 puff(s) by fluticasone-umeclidi n-vilanter (TRELEGY End: 11-26-2022 inhalation once daily ELLIPTA) 200-62.5- 25 mcg inhalation powder Inhale 1 Puff as ins tructed once daily. 60 Each 07/23/2022 0 11/26/2022 Discontinued Start: 07-23-2022 take 1 puff(s) by fluticasone-umeclidi n-vilanter (TRELEGY inhalation once daily ELLIPTA) 200-62.5- 25 mcg inhalation powder Inhale 1 Puff as ins tructed once daily. 60 Each 07/23/2022 A ctive Start: 07-23-2022 take 1 puff(s) by fluticasone-umeclidi n-vilanter (TRELEGY End: 08-22-2022 inhalation once daily ELLIPTA) 200-62.5- 25 mcg inhalation powder Inhale 1 Puff as ins tructed once daily. 60 Each 07/23/2022 1 Active Start: 06-06-2022 take 1 puff(s) by fluticasone-umeclidi n-vilanter (TRELEGY End: 07-20-2022 inhalation once daily ELLIPTA) 200-62.5- 25 mcg inhalation powder Inhale 1 Puff as ins tructed once daily. 60 Each 06/06/2022 0 07/20/2022 Discontinued Start: 06-06-2022 take 1 puff(s) by fluticasone-umeclidi n-vilanter (TRELEGY inhalation once daily ELLIPTA) 200-62.5- 25 mcg inhalation powder Inhale 1 Puff as ins tructed once daily. 60 Each 06/06/2022 A ctive Start: 06-06-2022 take 1 puff(s) by fluticasone-umeclidi n-vilanter (TRELEGY End: 07-06-2022 inhalation once daily ELLIPTA) 200-62.5- 25 mcg inhalation powder Inhale 1 Puff as ins tructed once daily. 60 Each 06/06/2022 0 07/06/2022 Active Comment on above: Inhale 1 Puff as instructed once daily. hydrOXYzine pamoate 25 mg oral capsule Antihistamine Start: take 1 capsule hydrOXYzine pamoate (7 sources) End: 05-11-2022 by mouth every (VISTARIL) 25 mg eight hours as capsule needed for Indications: anxiety and Anxiety Take 1 anxiety capsule by mout h three times roxanne ly as needed for Anxiety. 90 cap claudio 0 12/27/2020 05/11/2022 Discontinued Comment on above: Take 1 capsule by mouth thre e times daily as needed for Anxiety. lisinopril 40 mg oral tablet Angiotensin Start: 07-25-2021 take 1 tablet lisinopril (20 sources) Converting Enzyme End: 04-30-2023 by mouth once (ZESTR IL, PRINIVIL) Inhibitor daily 40 mg tablet Indications: Essential hypertension Ta ke 1 tablet by mouth once daily. 90 tablet 1 2021 Active Comment on above: Take 1 tablet by mouth once daily. loratadine 10 mg oral tablet Start: 05-31-2021 take 1 tablet by loratadine (CLARITIN) 10 (7 sources) End: 05-11-2022 mouth once daily mg table t Indications: Seasonal allerg ies Take 1 tablet by mala th once daily. 30 table t 5 05/31/2021 07/0 11/2021 Discontinued Comment on above: Take 1 tablet by mouth once daily. 24 hr nicotine 0.875 mg/hr transdermal system Cholinergic St art: 10-19-2021 apply 1 dose nicotine (14 sources) Nicotinic Agonist End: 05-11-2022 transdermal route (N ICODERM) 21 every twenty-four mg/24 hr hours Indications: Qu it smoking Apply 1 Patch as direct ed every 24 hours. 28 Patch 1 021 05/11/2022 Discontinued Start: 10-19-2021 Nicotine Polacrilex 2 mg lozenge Indications: Quit smoking Place End: 05-11-2022 1 Lozenge between [place] and gum as needed. 168 Lozenge 2 10/19/2021 Discontinued Comment on above: Apply 1 Patch as directed ev thomas [address] 1 Lozenge between pam k and gum as needed. nystatin [id number] unt/ml oral suspension Polyene Antifungal Start: nystatin (MYCOSTATIN) (8 sources) 100,000 unit/mL suspension Jeanine cations: Thrush (oral) T kimberli 5 mL by mouth four t imes daily. 1tsp swi sh in mouth for sever al minutes, then s wallow (or expectorate ) 4 times daily until karina e. 200 mL 0 09/05/2022 Ac tive Comment on above: Take 5 mL by mouth four time s daily. 1tsp swish in mouth for several minutes, then swallo w (or expectorate) 4 times daily until gone. olopatadine 2 mg/ml ophthalmic solution Histamine-1 Start: 1 take 1 drop(s) Olopatadine (10 sources) Receptor Inhibitor into the (PATADAY ONCE eye(s) once DAILY RELIEF) 0 .2 daily % drop Use 1 Dr op in both eyes on ce daily. 5 mL 2 08/31/2022 Acti ve Comment on above: Use 1 Drop in both eyes once daily. omeprazole 40 mg delayed release oral capsule Proton Pump St art: 03-06-2021 take 1 omeprazole (PRILOSEC) (20 sources) Inhibitor End: 05-11-2022 capsule by 40 mg capsul e mouth once Indications: daily Gastroesophagea l reflux disease, unspecified whe ther esophagitis pre sent Take 1 capsule by mouth once delmy y. 90 capsule 3 05/11 Active Comment on above: Take 1 capsule by mouth once daily. perflutren lipid microspheres 1.3 mL in NaCl (PF) 0.9% 10 mL injection (DEFINITY) Start: 04-30-2022 perflutren lip id microspheres (20 sources) End: 09-05-2022 1.3 mL in Na Cl (PF) 0.9% 10 mL injection (DEFI NITY) Start: 04-30-2022 perflutren lipid raymon rospheres 1.3 mL in NaCl (PF) 0.9% 10 mL End: 07-30-2023 injection (DEFINITY) Start: 05-08-2021 perflutren lipid raymon rospheres 1.3 mL in NaCl (PF) 0.9% 10 mL End: 05-11-2022 injection (DEFINITY) Start: 05-08-2021 perflutren lipid raymon rospheres 1.3 mL in NaCl (PF) 0.9% 10 mL End: 08-07-2022 injection (DEFINITY) 125 ml sodium chloride 9 mg/ml prefilled syringe Start : 05-08-2021 sodium chloride (20 sources) End: 07-30-2023 0.9 % (flush ) 10 mL (BD POSIFLUS H) traZODone hydrochloride 100 mg oral tablet Serotonin Start : 07-23-2022 take 2 tablets traZODone (20 sources) Reuptake End: 12-14-2022 by mouth once (DESYREL) 1 00 mg Inhibitor daily at tablet bedtime Indications: Recurrent major depression in partial remissi on ([facility]) Take 2 tablets by mout h daily at bedtim e. 60 tablet 5 12/14/2022 Acti ve Start: 11-21-2021 take 2 tablets by mouth once traZODone ( DESYREL) 100 mg tablet End: 07-20-2022 daily at bedtime Indications: Recurre nt major depression in partia l remission ([facility]) Take 2 tablets by mouth daily at bedtime. 60 table t 0 06/15/2022 07/20/2022 Discontin ued Start: 06-14-2021 traZODone 100 mg ora l tablet Dose : 100 mg = 1 tab(s), O ral, qHS Start Date: 06/14/21 Status: Ordered Comment on above: Take 2 tablets by mouth delmy y at bedtime. triamcinolone acetonide 1 mg/ml topical cream Corticosteroid Start: 08-31-2022 triamcinolone acetonide (10 sources) (KENALOG) 0.1 % cream Apply 1 applica tion to affected area t hree times daily. Apply sp aringly to area for rash/i tching. 15 g 1 08/31/2022 Active Comment on above: Apply 1 application to affec gilda area three times daily. Apply sparingly to area for rash/i tching. 24 hr venlafaxine 75 mg extended release oral capsule Serotonin and Start: take 1 venlafaxine ER (20 sources) Norepinephrine 08-31-2022 capsule by (EFFEXOR XR) 75 Reuptake Inhibitor mouth once mg 24 hr capsule daily Take 1 capsule by mouth once delmy y. Take with 150 m g capsule to =150 mg 90 capsule 1 08/31/2022 Acti ve Start: 05-02-2022 venlafaxine 150 mg o ral capsule, extended release Dos e : 150 mg = 1 cap(s), Oral, qDay, # 30 cap(s), 0 Refill(s) Start Date : 05/02/22 Status: Ordered Start: 09-05-2021 take 1 capsule by mouth once venlafaxine ER (EFFEXOR XR) 150 mg End: 08-31-2022 daily 24 hr capsule Indica tions: Recurrent major depr ession in partial remission ([facility]) Take 1 capsule by mouth onc e daily. Take with 75 mg capsule t o =225 mg 90 capsule 1 08/31/2022 Active Comment on above: Take 1 capsule by mouth once daily. Take 1 capsule by mouth once daily. Take with 75 mg capsule to =225 mg Take 1 capsule by mouth once daily. Take with 150 mg capsule to =150 mg Problems Active Problems Problem Classification Problem Date Documented Date Ep isodic/Chronic Alcohol-related disorders History of alcohol Onset: 0 Chronic (20 sources) abuse; Translations: [Alcohol abuse, in 6 remission] Anxiety disorders Mixed anxiety and Onset: 10-06-2019 Chron ic (20 sources) depressive disorder; Translations: [Anxiety 9 disorder, unspecified] Asthma Asthma 05-04-2016 Chronic (8 sources) Chronic obstructive pulmonary disease and bronchiectasis Chr onic bronchitis; Onset: 07-26-2016 Chronic (20 sources) Translations: [Unspecified chronic 6 bronchitis] Coronary atherosclerosis and other heart disease Coronary Onset : 09-27-2021 Chronic (20 sources) atherosclerosis; Translations: 1 [Atherosclerotic heart disease of [place] coronary artery without angina pectoris] Disorders of lipid metabolism Mixed hyperlipidemia; Onset: Chronic (20 sources) Translations: [Mixed hyperlipidemia] 1 Esophageal disorders Gastroesophageal Onset: 03-13-2019 Chr onic (20 sources) reflux disease; Translations: 9 [Gastro-esophageal reflux disease without esophagitis] Essential hypertension Essential Onset: 08-26-2021 Chron ic (20 sources) hypertension; Translations: 6 [Essential (primary) hypertension] Gastroduodenal ulcer (except hemorrhage) Gastric ulcer 04-03-2014 Chronic (4 sources) Gastrointestinal hemorrhage Gastrointestinal 4 Episodic (4 sources) hemorrhage Hepatitis Viral hepatitis C 05-29-2014 Episodic (4 sources) Immunizations and screening for infectious disease Vaccination need ed; Episodic (2 sources) Translations: [Encounter for immunization] Inflammation; infection of eye (except t hat caused by tuberculosis or sexually transmitteddisease) Allergic Episodic (1 source) conjunctivitis of bilateral eyes; Translations: [Acute atopic conjunctivitis, bilateral] Mood disorders Recurrent major Onset: Chronic (20 sources) depression in partial remission; 6 Translations: [Major depressive disorder, recurrent, in partial remission] Mycoses Candidiasis of mouth; Episod ic (1 source) Translations: [Candidal stomatitis] Occlusion or stenosis of precerebral arteries Carotid artery Onset: 05-08-2021 Chronic (20 sources) stenosis; Translations: 1 [Occlusion and stenosis of unspecified carotid artery] Other lower respiratory disease Wheezing; Episodic (2 sources) Translations: [Wheezing] Other lower respiratory disease Dyspnea; Translations: Episodic (2 sources) [Shortness of breath] Other lower respiratory disease Multiple nodules of Episodic (1 source) lung; Translations: [Other nonspecific abnormal finding of lung field] Other lower respiratory disease Hemoptysis; Episodic (1 source) Translations: [Hemoptysis] Other upper respiratory disease Seasonal allergy; Onset: 04-12 Chronic (20 sources) Translations: [Other seasonal allergic 9 rhinitis] Pancreatic disorders (not diabetes) Pancreatitis 12-04 Episodic (4 sources) Peripheral and visceral atherosclerosis Peripheral vascular Onset: 10-23-2019 Chronic (20 sources) disease, unspecified; Translations: 9 [Peripheral vascular disease, unspecified] Residual codes; unclassified Menopause present; Episodic (1 source) Translations: [Asymptomatic menopausal state] Residual codes; unclassified H/O: respiratory Onset: 11-20-19 Episodic (4 sources) disease; Translations: [Personal history of 3 other specified conditions] Respiratory failure; insufficiency; arrest (adult) Acute respirator y Episodic (1 source) failure; Translations: [Acute respiratory failure with hypoxia] Substance-related disorders Smoker; Translations: Onset: 10-11 Chronic (20 sources) [Nicotine dependence, unspecified, 9 uncomplicated] Unclassified Ethyl alcohol 11-28-2013 (4 sources) (substance) Unclassified ov Onset: (1 source) 2 Past or Other Problems Problem Problem Date Documented Date Episodic/Chr onic Classification Diabetes mellitus without complication Prediabetes; Onset: Episodic (20 sources) Translations: 02-04-2021 [Prediabetes] Fracture of upper limb Unspecified fracture Onset: Episodic (1 source) of lower end of right 10-10-2021 humerus, subsequent encounter for fracture with delayed healing; Translations: [Closed fracture of right elbow with delayed healing, subsequent encounter] Nonspecific chest pain Chest pain; Onset: 05-08-2021 Episo dic (20 sources) Translations: [Chest 05-08-2021 pain, unspecified] Other lower respiratory disease Dyspnea on exertion; Onset: 1 Episodic (20 sources) Translations: 08-26-2021 [Dyspnea, unspecified] Other lower respiratory disease Shortness of breath; Onset: Episodic (2 sources) Translations: 08-14-2021 [Shortness of breath] Other lower respiratory disease Nodule of lung; Onset: Episodic (11 sources) Translations: 08-31-2022 [Solitary pulmonary nodule] Other lower respiratory disease Other forms of Onset: Episodic (2 sources) dyspnea; 08-26-2021 Translations: [Dyspnea on exertion] Other screening for suspected conditions (not mental disorders or infectious disease) Cardiovascular stress Onset: 08-26-2021 Episodic (20 sources) test abnormal; 08-26-2021 Translations: [Abnormal result of other cardiovascular function study] Spondylosis; intervertebral disc disorders; other back problems Spinal stenosis of Onset: 12-01-2018 Episodic (20 sources) lumbar region; 12-01-2018 Translations: [Spinal stenosis, lumbar region without neurogenic claudication] Results Test Name Value Interpretation Reference Range Facility .Auto Diff on 12-23-2022 Basophil, Absolute 0.1 10 3/mcL Normal 0.0-0.2 [facility] ([place]) Comment on above: Performed By: #### TROPHS, G FR, CMP, PBNP #### [address] [address] Basophils/100 WBC (Bld) 1.5 % Normal 0.0-2.5 [facility] ([place]) Comment on above: Performed By: #### TROPHS, G FR, CMP, PBNP #### [address] [address] Eosinophil, Absolute 0.1 10 3/mcL Normal 0.0-0.4 [facility] ([place]) Comment on above: Performed By: #### TROPHS, G FR, CMP, PBNP #### [address] [address] Eosinophils/100 WBC (Bld) 1.1 % Normal 0.0-7.0 [facility] ([place]) Comment on above: Performed By: #### TROPHS, G FR, CMP, PBNP #### [address] [address] Lymphocyte, Absolute 2.0 10 3/mcL Normal 0.8-3.9 [facility] ([place]) Comment on above: Performed By: #### TROPHS, G FR, CMP, PBNP #### [address] [address] Lymphocytes/100 WBC (Bld) 36.4 % Normal 10.0-50.0 [facility] ([place] Comment on above: Performed By: #### JOSE JS G FR, CMP, PBNP #### [address] [address] Monocyte, Absolute 0.5 10 3/mcL Normal 0.2-1.0 [facility] ([place]) Comment on above: Performed By: #### JOSE JS G FR, CMP, PBNP #### [address] [address] Monocytes/100 WBC (Bld) 9.3 % Normal 1.7-13.0 [facility] ([place]) Comment on above: Performed By: #### TROPHS, G FR, CMP, PBNP #### [address] [address] Neutrophils/100 WBC (Bld) 51.7 % Normal 37.0-80.0 [facility] ([place] Comment on above: Performed By: #### JOSE JS G FR, CMP, PBNP #### [address] [address] .GFR on 12-23-2022 GFR 100 ml/min/1.73sqm Normal A [facility] ([place]) Comment on above: Result Comment: GFR Population mean for Afri can Portuguese, Non- Americans Ages 20-29 = 116 mL/min/1.73 sq.m. Ages 30-39 = 107 mL/min/1.73 sq.m. Ages 40-49 = 99 mL/min/1.73 sq.m. Ages 50-59 = 93 mL/min/1.73 sq.m. Ages 60-69 = 85 mL/min/1.73 sq.m. Ages 70+ = 75 mL/min/1.73 sq .m. Chronic Kidney Disease: Less than 60 mL/min/1.73 square meters End Stage Renal Disease: Les s than 15 mL/min/1.73 square meters Performed By: #### TROPHS, G FR, CMP, PBNP #### [address] [address] GFR Non- 82 ml/min/1.73sqm Normal [facility] ([place]) Comment on above: Result Comment: GFR Population mean for Afri can Portuguese, Non- Americans Ages 20-29 = 116 mL/min/1.73 sq.m. Ages 30-39 = 107 mL/min/1.73 sq.m. Ages 40-49 = 99 mL/min/1.73 sq.m. Ages 50-59 = 93 mL/min/1.73 sq.m. Ages 60-69 = 85 mL/min/1.73 sq.m. Ages 70+ = 75 mL/min/1.73 sq .m. Chronic Kidney Disease: Less than 60 mL/min/1.73 square meters End Stage Renal Disease: Les s than 15 mL/min/1.73 square meters Performed By: #### TROPHS, G FR, CMP, PBNP #### [address] [address] .MDW on 12-23-2022 Monocyte Distribution Width 18.17 Normal 0.00-20.00 [facility] ([place]) Comment on above: Result Comment: For ED adult patients suspected of sepsis, MDW<=20.0 does not rule out sepsis or risk of sepsis Performed By: #### TROPHS, G FR, CMP, PBNP #### [address] [address] .NEUABS on 12-23-2022 Neutrophil, Absolute 2.8 10 3/mcL Low 2.9-6.2 [facility] ([place]) Comment on above: Performed By: #### TROPHS, G FR, CMP, PBNP #### [address] [address] BMP on 12-23-2022 BUN/Creatinine Ratio 6 ratio Low 7-27 [facility] ([place]) Comment on above: Performed By: #### TROPHS, G FR, CMP, PBNP #### [address] [address] Calcium [Mass/Vol] 8.1 mg/dL Low 8.4-10.2 [facility] ([place]) Comment on above: Performed By: #### Gustavo PRUETT, CMP, PBNP #### [address] [address] Chloride [Moles/Vol] 102 mmol/L Normal 98-107 [facility] ([place]) Comment on above: Performed By: #### Gustavo PRUETT, CMP, PBNP #### [address] [address] CO2 [Moles/Vol] 30 mmol/L Normal 23-31 [facility] ([place]) Comment on above: Performed By: #### Gustavo PRUETT, CMP, PBNP #### [address] [address] Creatinine [Mass/Vol] 0.71 mg/dL Normal 0.55-1.02 [facility] ([place]) Comment on above: Performed By: #### Gustavo PRUETT, CMP, PBNP #### [address] [address] Electrolyte Balance 7.0 mEq/L Normal 4.0-15.0 [facility] ([place]) Comment on above: Performed By: #### Gustavo PRUETT, CMP, PBNP #### [address] [address] Glucose [Mass/Vol] 88 mg/dL Normal 80-115 [facility] ([place]) Comment on above: Performed By: #### Gustavo PRUETT, CMP, PBNP #### [address] [address] Potassium [Moles/Vol] 4.1 mmol/L Normal 3.5-5.1 [facility] ([place]) Comment on above: Performed By: #### Gustavo PRUETT, CMP, PBNP #### [address] [address] Sodium [Moles/Vol] 139 mmol/L Normal 136-145 [facility] ([place]) Comment on above: Performed By: #### TROPHS, G FR, CMP, PBNP #### [address] [address] Urea nitrogen [Mass/Vol] 4 mg/dL Low 7-18 [facility] ([place]) Comment on above: Performed By: #### JOSE JS G FR, CMP, PBNP #### [address] [address] CBC on 12-23-2022 Erythrocyte distribution width 15.8 % High 11.5-14.5 [facility] ([place]) (RBC) [Ratio] Comment on above: Performed By: #### FLYNN G FR, CMP, PBNP #### [place] [address] Hematocrit (Bld) [Volume 39.7 % Normal 37.0-47.0 [facility] ([place]) fraction] Comment on above: Performed By: #### FLYNN G FR, CMP, PBNP #### [place] [address] Hgb 13.2 G/dL Normal 12.0-16.0 [facility] ([place]) Comment on above: Performed By: #### FLYNN G FR, CMP, PBNP #### [place] [address] MCH (RBC) [Entitic mass] 32.3 pg High 27.0-31.2 [facility] ([place] Comment on above: Performed By: #### JOSE JS G FR, CMP, PBNP #### [place] [address] MCHC 33.2 G/dL Normal 33.0-37.0 [facility] ([place]) Comment on above: Performed By: #### JOSE JS G FR, CMP, PBNP #### [place] [address] MCV (RBC) [Entitic vol] 97.3 fL High 80.0-94.0 [facility] ([place]) Comment on above: Performed By: #### JOSE JS G FR, CMP, PBNP #### [place] [address] [place], [place] [address] Platelet 337 10 3/mcL Normal 130-400 [facility] ([place]) Comment on above: Performed By: #### TROPHS, G FR, CMP, PBNP #### [facility] [address] [place], [place] [address] Platelet mean volume (Bld) 7.7 fL Normal 7.4-10.4 A [facility] ([place]) [Entitic vol] Comment on above: Performed By: #### TROPHS, G FR, CMP, PBNP #### [place] [id number] [place], [place] [address] RBC 4.08 10 6/mcL Low 4.20-5.40 [facility] ([place]) Comment on above: Performed By: #### TROPHS, G FR, CMP, PBNP #### [place] [address] [place], [place] [address] WBC 5.4 10 3/mcL Normal 4.6-10.8 [facility] ([place]) Comment on above: Performed By: #### TROPHS, G FR, CMP, PBNP #### [address] [address] LABORATORY Ordered By: Glenda brown on 12-23-2022 Basophil, Absolute 0.1 103/mcL Invalid Interpretation 0.0 - 0.2 AO Workflow SS Code 10^3/mcL Basophils/100 WBC 1.5 % Invalid Interpretation 0.0 - 2.5 % AO Workflow SS (Bld) Code Eosinophil, Absolute 0.1 103/mcL Invalid Interpretation 0.0 - 0.4 AO Workflow SS Code 10^3/mcL Eosinophils/100 WBC 1.1 % Invalid Interpretation 0.0 - 7.0 % AO Workflow SS (Bld) Code Erythrocyte 15.8 % Invalid Interpretation 11.5 - 14.5 % AO W orkflow SS distribution width Code (RBC) [Ratio] Hematocrit (Bld) 39.7 % Invalid Interpretation 37.0 - 47.0 % AO Workflow SS [Volume fraction] Code Hemoglobin (Bld) 13.2 G/dL Invalid Interpretation 12.0 - 16.0 G/ dL AO Workflow SS [Mass/Vol] Code Lymphocyte, Absolute 2.0 103/mcL Invalid Interpretation 0.8 - 3.9 AO Workflow SS Code 10^3/mcL Lymphocytes/100 WBC 36.4 % Invalid Interpretation 10.0 - 50.0 % AO Workflow SS (Bld) Code MCH (RBC) [Entitic 32.3 pg Invalid Interpretation 27.0 - 31.2 pg AO Workflow SS mass] Code MCHC 33.2 G/dL Invalid Interpretation 33.0 - 37.0 G/dL A O Workflow SS Code MCV (RBC) [Entitic 97.3 fL Invalid Interpretation 80.0 - 94.0 fL AO Workflow SS vol] Code Monocyte 18.17 Invalid Interpretation 0.00 - 20.00 AO Wo rkflow SS distribution width Code Auto (Bld) [Entitic vol] Comment on above: Result Comment: For ED adult patients suspected of sepsis, MDW<=20.0 does not rule out sepsis or risk of sepsis Monocyte, Absolute 0.5 103/mcL Invalid Interpretation 0.2 - 1.0 AO Workflow SS Code 10^3/mcL Monocytes/100 WBC 9.3 % Invalid Interpretation 1.7 - 13.0 % AO Workflow SS (Bld) Code Neutrophil, 2.8 103/mcL Invalid Interpretation 2.9 - 6.2 AO Wo rkflow SS Absolute Code 10^3/mcL Neutrophils/100 51.7 % Invalid Interpretation 37.0 - 80.0 % A O Workflow SS WBC (Bld) Code Platelet mean 7.7 fL Invalid Interpretation 7.4 - 10.4 fL AO Workflow SS volume (Bld) Code [Entitic vol] Platelets (Bld) 337 103/mcL Invalid Interpretation 130 - 400 AO Workflow SS [#/Vol] Code 10^3/mcL RBC (Bld) [#/Vol] 4.08 106/mcL Invalid Interpretation 4.20 - 5.40 AO Workflow SS Code 10^6/mcL WBC (Bld) [#/Vol] 5.4 103/mcL Invalid Interpretation 4.6 - 10.8 AO Workflow SS Code 10^3/mcL LABORATORY Ordered By: SYSTEM SYSTEM on 12-23-2022 Calcium [Mass/Vol] 8.1 mg/dL Invalid Interpretation 8.4 - 10.2 AO ADM SS Code mg/dL Chloride [Moles/Vol] 102 mmol/L Invalid Interpretation 98 - 107 AO ADM SS Code mmol/L CO2 [Moles/Vol] 30 mmol/L Invalid Interpretation 23 - 31 AO ADM SS Code mmol/L Creatinine 0.71 mg/dL Invalid Interpretation 0.55 - 1.02 AO AD M SS [Mass/Vol] Code mg/dL Electrolyte Balance 7.0 mEq/L Invalid Interpretation 4.0 - 15.0 AO ADM SS Code mEq/L GFR 100 Invalid Interpretation AO Chemistry S ml/min/1.73sqm Code GFR Non- 82 Invalid Interpretation AO Chemistry S Portuguese ml/min/1.73sqm Code Glucose [Mass/Vol] 88 mg/dL Invalid Interpretation 80 - 115 AO ADM SS Code mg/dL Natriuretic 540 pg/mL Invalid Interpretation 0 - 125 pg/mL AO A DM SS peptide.B prohormone Code N-Terminal [Mass/Vol] Potassium 4.1 mmol/L Invalid Interpretation 3.5 - 5.1 AO AD M SS [Moles/Vol] Code mmol/L Sodium [Moles/Vol] 139 mmol/L Invalid Interpretation 136 - 145 AO ADM SS Code mmol/L Troponin I.cardiac 14.1 ng/L Invalid Interpretation 0.0 - 51.4 AO ADM SS DL <= 0.01 ng/mL Code ng/L [Mass/Vol] Urea nitrogen 4 mg/dL Invalid Interpretation 7 - 18 mg/dL AO A DM SS [Mass/Vol] Code Urea 6 ratio Invalid Interpretation 7 - 27 ratio AO AD M SS nitrogen/Creatinine Code [Mass ratio] PBNP on 12-23-2022 Natriuretic peptide B (Bld) 540 pg/mL High 0-125 [facility] ([place]) [Mass/Vol] Comment on above: Result Comment: NT-proBNP re sults of less than 300 pg/mL effectively rules out acute congestive h eart failure with 99% negative predictive value. Performed By: #### Gustavo PRUETT FR, CMP, PBNP #### [address] [address] TROPHS on 12-23-2022 Troponin I High Sensitivity 14.1 ng/L Normal 0.0-51.4 [facility] ([place]) Comment on above: Performed By: #### Gustavo PRUETT FR, CMP, PBNP #### [facility] [address] [place], [place] [address] XR CHEST 1 VIEW on 12-23-2022 XR CHEST 1 VIEW ORIGINAL Normal [facility] EXAMINATION: ([place]) ONE XRAY VIEW OF THE CHEST12/23/2022 2:32 pm CHEST ONE VIEW AP/PA COMPARISON: 10/26/2022 HISTORY: ORDERING SYSTEM PROVIDED HISTORY: Reason for Exam: SOB/cough/fever FINDINGS: The cardiomediastinal contours are normal. The aorta i s atherosclerotic. There is no focal consolidation, pleural effusion, or pneumothorax. No acute osseous abnormality. There are remote right-sided rib fractures. Surgical hardware seen in the lower cervical spine. IMPRESSION: No acute radiographic findings. Interpreted by: Ben Hernández MD Preliminary Report By: Ben Hernández MD Electronically signed By Ben Hernández MD Dictated Date: 12/23/2022 2:42:09 PM Prelim Date: 12/23/2022 2:43:01 PM Sign Date: 12/23/2022 2:43:01 PM Ordering Provider: JOSE ROBERTO ALMONTE on 11-26-2022 CNOV Office Visit (PULMWS) Normal [place] VINCE KOENIG ([id number]) 1955 [facility] Time Provider Department 11/26/22 12:45 PM SALIMA ASHER PULMWS During your visit today, we recorded the following inf ormation about you: Pulse Respiration Blood pressure Weight 98/minute 20/minute 120/84 57.6 kg Salima Asher MD 11/26/2022 2:01 PM Signed . Respiratory [place] Note Patient name: Vince Koenig PCP: Ulises Hermosillo MD CC: Hemoptysis HPI: Vince Koenig 67 year old female curren t heavy smoker, over 100 pack years with PMH significant for bipolar affective disorder, h/o alcohol abuse, GERD, PAD, HLD, CAD s/p stent, severe COPD (FEV1 0.83 L 36%), oxygen dependence, previously following in [facility], new to me. Recent admission at [facility] in [place] for AE COPD. CXR reported as normal. Discharged with a course of doxycycline and prednisone . She states she was doing well until last week when she had an episode of hemoptysis. She described bright red blood with clots mixed with mucus that lasted 24 hours. No fevers, chills, chest pain. No epistaxis or hematem esis. She has been out of her Trelegy Ellipta and has been using her al buterol at least twice daily. She is on Plavix for her coronary stent. Denies past b leeding problems. Current respiratory symptoms of dyspnea on exertion, w heezing. No chest pain or current cough. DME: [facility] DATA: PFT 05/2022: Review of spirometry shows severe obstruction wi thout significant improvement post bronchodilators and moderate reduction in diffusi ng capacity Labs: Laboratory testing at [facility], normal CBC and platelet count. Negative COVID and influenza Imaging / Diagnostic Studies: DATE OF EXAM: Jul 26 2022 4:27PM [facility] 0562 - CT LUNG SCREEN WO IVCON / 2491 PROCEDURE REASON: multiple diagnoses CLINICAL HISTORY: Lung cancer LDCT scree fannie ? absence of signs or symptoms of lung cancer. Nicotine dependence (cigarettes). COMPARISON: 02/03/2021. RESULT: Are nodules present? Yes, 1-5 nodules Nodule 1: This Solid nodule is located i n the Right Upper Lobe on slice number 103 with an average diameter of 8.2 mm (9.7 mm x 6.8 m m). Other lung nodule comments: None. Other findings: There is severe centrilo bular emphysema with diffuse bronchial wall thickening. No focal consolidation. Linear atelec tasis at the lung bases. The imaged thyroid gland is unremarkable. No thoracic lymphadenopathy. There are atherosclerotic calcifications in the thorac ic aorta. The thoracic aorta and main pulmonary artery are normal in caliber. The cardiac chambers are normal in size. There are triple-vessel coronary a rtery calcifications noting LAD stents. No pericardial effusion or pericard ial thickening. The imaged upper abdomen is stable without acute abnormali ty. Emphysema: Severe (50-75%), centrilobular, diffuse Coronary Artery Calcifications: Circumflex mild; Left Anterior Descending stents in place; Right Coronary mild IMPRESSION: LungRADS category: 2 LungRADS modifier: None LungRADS 0 reason: n/a Recommendations: Continue annual screening with LDCT in 12 months. I personally reviewed the images and agree with the ab aleksandere assessment PAST MEDICAL HISTORY Diagnosis Date Acute pancreatitis 2010 Anisha Cruz Alcohol use disorder 01/18/2016 Dr. Angie Jones, [facility] Anxiety 12/14/2015 Bipolar affective disorder, currently active ([facility]) 07/2016 Dr. Angie Jones, [facility] Chronic bronchitis ([facility]) 07/26/2016 Closed skull fracture ([facility]) 1994 [facility], [facility] Coronary artery disease DDD (degenerative disc disease), cervical Endometriosis 2007 Essential hypertension 12/14/2015 GERD (gastroesophageal reflux disease) 03/13/2019 History of colon polyps History of gastric ulcer 12/14/2015 HLD (hyperlipidemia) Injury of left facial nerve 1994 PAD (peripheral artery disease) ([facility]) 09/28/2019 Recurrent major depression in partial remission ([facility]) 12/14/2015 S/P drug eluting coronary stent placement 08/25/2021 LAD and Dg2 Spinal stenosis ALLERGIES No Known Allergies albuterol HFA (VENTOLIN HFA) 90 mcg/actuation inhaler Inhale 2 Puffs as instructed every 6 hours as needed for wheezing/shortn ess of breath. xxvwptbqbqq-isvdowxrl-arwngjnf (TRELEGY ELLIPTA) 200-6 2.5-25 mcg inhalation powder Inhale 1 Puff as instructed once daily. predniSONE (DELTASONE) 10 mg tablet Take two daily for 5 days then one daily for 10 days nystatin (MYCOSTATIN) 100,000 unit/mL toure spension Take 5 mL by mouth four times daily. 1tsp swish in mouth f or several minutes, then swallow (or expectorate) 4 times daily until gone. (Patient not taking: Reported on 10/02/2022) acetaminophen (TYLENOL EXTRA STRENGTH) 500 mg tablet T kimberli 1 tablet by mouth every 8 hours (more content not included)... CNPN on 11-20-2022 CNPN Telephone (INTMWS) [facility] VINCE KOENIG ([id number]) 1955 [facility] Date Time Provider Department 11/20/22 ULISES HERMOSILLO During your visit today, we recorded the following inf ormation about you: Christina Greco LPN 11/20/2022 10:40 AM Signed Pt called and reports she went to [facility] ER last week for difficulty breathing and COPD. At ER pt was given breathing treat ments, Prednisone and ATB. Sent home. Next next started coughing up larges a justin of blood with clots which lasted 24 hours and then just stopped and she has not had this happened since. Pt did not set up ER FU because she wa s feeling better. Pt was talking with her son and they are both concern where does she go from here. Pt not certain whether to schedule ER FU or does she need to FU with her other specialists. *Pt reports has left upper chest pain that comes and g oes, has been going on for a few months *on oxygen since March 30, 2022 *smoking less than a pack per day (was smoking 2 to 3 pack per day) Please advise pt. Christina Hermosillo MD 11/20/2022 1:17 PM Signed ASSESSMENT/PLAN: 1. History of hemoptysis - ICD9: V12.69, ICD10: Z87.89 8 Schedule follow up with pulmonary medici ne, last seen by Dr. Shrestha 06/06/22. 6 month follow up was recommended (not scheduled). Advise ER for recurrent hemoptysis. MD Saira Jameson LPN 11/20/2022 1:29 PM Signed Patient notified, verbalized understanding. Will wait for call from PSS to schedule. Saira Bailey 11/20/2022 1:46 PM Signed Spoke to pt and scheduled appt with Dr. Asher on 11/26 at 12:45 PM Veda Bailey November 20, 2022 1:46 PM Allergies As of Date: 11/20/2022 (No Known Allergies) Date Reviewed: 10/02/2022 Reviewed by: Neelam Murray, CT - Fully Assessed Reason for Visit: question: next step [Other] Visit Diagnosis:History of hemoptysis [Z87.898] Prescriptions as of 11/20/2022 - nystatin (MYCOSTATIN) 100,000 unit/mL suspension Take 5 mL by mouth four times daily. 1tsp swish in mouth for several minutes, then swallow (or expectorate) 4 times daily until gone . - acetaminophen (TYLENOL EXTRA STRENGTH) 500 mg tablet Take 1 tablet by mouth every 8 hours as needed for kerry n. - venlafaxine ER (EFFEXOR XR) 150 mg 24 hr capsule Take 1 capsule by mouth once daily. Take with 75 mg ca psule to =225 mg - atorvastatin (LIPITOR) 80 mg tablet Take 1 tablet by mouth once daily. - carvedilol (COREG) 6.25 mg tablet Take 1 tablet by mouth twice daily. - Olopatadine (PATADAY ONCE DAILY RELIEF) 0.2 % drop Use 1 Drop in both eyes once daily. - lisinopril (ZESTRIL, PRINIVIL) 40 mg tablet Take 1 tablet by mouth once daily. - LORazepam (ATIVAN) 1 mg tablet Take 1 tablet by mouth every 8 hours as needed f or anxiety for up to 90 days. - venlafaxine ER (EFFEXOR XR) 75 mg 24 hr capsule Take 1 capsule by mouth once daily. Take with 150 mg c apsule to =150 mg - triamcinolone acetonide (KENALOG) 0.1 % cream Apply 1 application to affected area three times daily . Apply sparingly to area for rash/itching. - traZODone (DESYREL) 100 mg tablet Take 2 tablets by mouth daily at bedtime. - uqnbazsenxm-jwzunrkry-erdavurc (TRELEGY ELLIPT A) 200-62.5-25 mcg inhalation powder Inhale 1 Puff as instructed once daily. - albuterol HFA (VENTOLIN HFA) 90 mcg/actuation inhale r Inhale 2 Puffs as instructed every 6 hours as needed f or wheezing/shortness of breath. - amLODIPine (NORVASC) 10 mg tablet TAKE 1 TABLET BY MOUTH EVERY DAY - omeprazole (PRILOSEC) 40 mg capsule Take 1 capsule by mouth once daily. - isosorbide mononitrate ER (IMDUR) 30 mg 24 hr tablet TAKE 1 TABLET BY MOUTH EVERY DAY - aspirin 81 mg chewable tablet Take 1 tablet by mouth once daily. - clopidogrel (PLAVIX) 75 mg tablet Take 1 tablet by mouth once daily. Problem List As Of Date 11/20/2022 Noted Resolved Essential hypertension [I10] 12/14/2015 Recurrent major depression in partial remission*2015 Anxiety [F41.9] 12/14/2015 01/06/2021 Bipolar affective disorder, currently active (H*2015 History of alcohol abuse [F10.11] 01/18/2016 Chronic bronchitis (HCC) [J42] 07/26/2016 Hyperkalemia [E87.5] 07/27/2016 11/27/2018 Polycythemia [D75.1] 07/27/2016 11/27/2018 Spinal stenosis, lumbar region without neurogen*2018 Radiculopathy, lumbar region [M54.16] 12/01/2018 Smoker [F17.200] 03/13/2019 GERD (gastroesophageal reflux disease) [K21.9] 019 Primary osteoarthritis of right hip [M16.11] 9 10/06/2019 History of total right hip arthroplasty [Z96.64*201807/07/2020 Seasonal allergies [J30.2] 05/04/2019 Preop cardiovascular exam [Z01.810] 09/28/2019 019 Precordial pain, short lived, 3-5 minutes, none*201807/07/2020 PAD (peripheral artery disease) ([facility]) [I73.9] 09/28/20 19 Anxiety and depression (more content not included)... .Auto Diff on 10-26-2022 Basophil, Absolute 0.1 10 3/mcL Normal 0.0-0.2 [facility] ([place]) Comment on above: Performed By: #### Gustavo PRUETT FR, CMP, PBNP #### [place] [address] [address] Basophils/100 WBC (Bld) 1.6 % Normal 0.0-2.5 [facility] ([place]) Comment on above: Performed By: #### TROPHS, G FR, CMP, PBNP #### [address] [address] Eosinophil, Absolute 0.2 10 3/mcL Normal 0.0-0.4 [facility] ([place]) Comment on above: Performed By: #### TROPHS, G FR, CMP, PBNP #### [address] [address] Eosinophils/100 WBC (Bld) 2.3 % Normal 0.0-7.0 [facility] ([place]) Comment on above: Performed By: #### TROPHS, G FR, CMP, PBNP #### [address] [address] Lymphocyte, Absolute 2.1 10 3/mcL Normal 0.8-3.9 [facility] ([place]) Comment on above: Performed By: #### TROPHS, G FR, CMP, PBNP #### [address] [address] Lymphocytes/100 WBC (Bld) 29.5 % Normal 10.0-50.0 [facility] ([place]) Comment on above: Performed By: #### TROPHS, G FR, CMP, PBNP #### [address] [address] Monocyte, Absolute 0.6 10 3/mcL Normal 0.2-1.0 [facility] ([place]) Comment on above: Performed By: #### TROPHS, G FR, CMP, PBNP #### [address] [address] Monocytes/100 WBC (Bld) 8.6 % Normal 1.7-13.0 [facility] ([place]) Comment on above: Performed By: #### TROPHS, G FR, CMP, PBNP #### [address] [address] Neutrophils/100 WBC (Bld) 58.0 % Normal 37.0-80.0 [facility] ([place]) Comment on above: Performed By: #### FLYNN G FR, CMP, PBNP #### [address] [address] .GFR on 10-26-2022 GFR 100 ml/min/1.73sqm Normal A [facility] ([place]) Comment on above: Result Comment: GFR Population mean for Afri can Portuguese, Non- Americans Ages 20-29 = 116 mL/min/1.73 sq.m. Ages 30-39 = 107 mL/min/1.73 sq.m. Ages 40-49 = 99 mL/min/1.73 sq.m. Ages 50-59 = 93 mL/min/1.73 sq.m. Ages 60-69 = 85 mL/min/1.73 sq.m. Ages 70+ = 75 mL/min/1.73 sq .m. Chronic Kidney Disease: Less than 60 mL/min/1.73 square meters End Stage Renal Disease: Les s than 15 mL/min/1.73 square meters Performed By: #### FLYNN G FR, CMP, PBNP #### Kathi [address] [address] GFR Non- 82 ml/min/1.73sqm Normal [facility] ([place]) Comment on above: Result Comment: GFR Population mean for Afri can Portuguese, Non- Americans Ages 20-29 = 116 mL/min/1.73 sq.m. Ages 30-39 = 107 mL/min/1.73 sq.m. Ages 40-49 = 99 mL/min/1.73 sq.m. Ages 50-59 = 93 mL/min/1.73 sq.m. Ages 60-69 = 85 mL/min/1.73 sq.m. Ages 70+ = 75 mL/min/1.73 sq .m. Chronic Kidney Disease: Less than 60 mL/min/1.73 square meters End Stage Renal Disease: Les s than 15 mL/min/1.73 square meters Performed By: #### TROPHS, G FR, CMP, PBNP #### [address] [address] .MDW on 10-26-2022 Monocyte Distribution Width 17.60 Normal 0.00-20.00 [facility] ([place]) Comment on above: Result Comment: For ED adult patients suspected of sepsis, MDW<=20.0 does not rule out sepsis or risk of sepsis Performed By: #### FLYNN G FR, CMP, PBNP #### [address] [address] .NEUABS on 10-26-2022 Neutrophil, Absolute 4.1 10 3/mcL Normal 2.9-6.2 [facility] ([place]) Comment on above: Performed By: #### FLYNN G FR, CMP, PBNP #### [place] [address] CBC on 10-26-2022 Erythrocyte distribution width 17.6 % High 11.5-14.5 [facility] ([place]) (RBC) [Ratio] Comment on above: Performed By: #### FLYNN G FR, CMP, PBNP #### [place] [address] Hematocrit (Bld) [Volume 39.9 % Normal 37.0-47.0 [facility] ([place]) fraction] Comment on above: Performed By: #### FLYNN G FR, CMP, PBNP #### [place] [address] Hgb 13.3 G/dL Normal 12.0-16.0 [facility] ([place]) Comment on above: Performed By: #### JOSE JS G FR, CMP, PBNP #### [place] [address] MCH (RBC) [Entitic mass] 32.2 pg High 27.0-31.2 [facility] ([place]) Comment on above: Performed By: #### TROPHS G FR, CMP, PBNP #### [place] [address] MCHC 33.4 G/dL Normal 33.0-37.0 [facility] ([place]) Comment on above: Performed By: #### TROPHS, G FR, CMP, PBNP #### [address] [address] MCV (RBC) [Entitic vol] 96.4 fL High 80.0-94.0 [facility] ([place]) Comment on above: Performed By: #### TROPHS, G FR, CMP, PBNP #### [address] [address] Platelet 387 10 3/mcL Normal 130-400 [facility] ([place]) Comment on above: Performed By: #### TROPHS, G FR, CMP, PBNP #### [address] [address] Platelet mean volume (Bld) 7.1 fL Low 7.4-10.4 A [facility] ([place]) [Entitic vol] Comment on above: Performed By: #### JOSE JS, G FR, CMP, PBNP #### [address] [address] RBC 4.14 10 6/mcL Low 4.20-5.40 [facility] ([place]) Comment on above: Performed By: #### JOSE JS, G FR, CMP, PBNP #### [address] [address] WBC 7.1 10 3/mcL Normal 4.6-10.8 [facility] ([place]) Comment on above: Performed By: #### JOSE JS, G FR, CMP, PBNP #### [address] [address] CMP on 10-26-2022 Albumin Level 3.3 G/dL Low 3.4-4.8 [facility] ([place]) Comment on above: Performed By: #### TROPHS, G FR, CMP, PBNP #### [address] [address] Albumin/Globulin [Mass ratio] 0.9 {ratio} Low 1.1-2.5 [facility] ([place]) Comment on above: Performed By: #### TROPHS, G FR, CMP, PBNP #### [address] [address] ALP [Catalytic activity/Vol] 83 U/L Normal 40-135 [facility] ([place]) Comment on above: Performed By: #### Gustavo PRUETT FR, CMP, PBNP #### [address] [address] ALT [Catalytic activity/Vol] 29 U/L Normal 14-59 [facility] ([place]) Comment on above: Performed By: #### FLYNN G FR, CMP, PBNP #### [address] [address] AST [Catalytic activity/Vol] 21 U/L Normal 10-40 [facility] ([place]) Comment on above: Performed By: #### Gustavo PRUETT, CMP, PBNP #### [address] [address] Bili Total 0.1 mg/dL Low 0.2-1.0 [facility] ([place]) Comment on above: Result Comment: Use of this assay is not recommended for patients undergoing treatment with eltrombopag d ue to the potential for falsely elevated results. Performed By: #### Gustavo PRUETT, CMP, PBNP #### [address] [address] BUN/Creatinine Ratio 14 ratio Normal 7-27 [facility] ([place]) Comment on above: Performed By: #### FLYNN G FR, CMP, PBNP #### [address] [address] Calcium [Mass/Vol] 8.5 mg/dL Normal 8.4-10.2 [facility] ([place]) Comment on above: Performed By: #### FLYNN G FR, CMP, PBNP #### [address] [address] Chloride [Moles/Vol] 104 mmol/L Normal 98-107 [facility] ([place]) Comment on above: Performed By: #### JOSE JS G FR, CMP, PBNP #### [address] [address] CO2 [Moles/Vol] 28 mmol/L Normal 23-31 [facility] ([place]) Comment on above: Performed By: #### Gustavo PRUETT, CMP, PBNP #### [address] [address] Creatinine [Mass/Vol] 0.71 mg/dL Normal 0.55-1.02 [facility] ([place]) Comment on above: Performed By: #### Gustavo PRUETT, CMP, PBNP #### [address] [address] Electrolyte Balance 8.0 mEq/L Normal 4.0-15.0 [facility] ([place]) Comment on above: Performed By: #### Gustavo PRUETT, CMP, PBNP #### [address] [address] Globulin 3.5 G/dL Normal [facility] ([place]) Comment on above: Performed By: #### Gustavo PRUETT, CMP, PBNP #### [address] [address] Glucose [Mass/Vol] 88 mg/dL Normal 80-115 [facility] ([place]) Comment on above: Performed By: #### Gustavo PRUETT, CMP, PBNP #### [address] [address] Potassium [Moles/Vol] 4.5 mmol/L Normal 3.5-5.1 [facility] ([place]) Comment on above: Performed By: #### Gustavo PRUETT, CMP, PBNP #### [address] [address] Sodium [Moles/Vol] 140 mmol/L Normal 136-145 [facility] ([place]) Comment on above: Performed By: #### Gustavo PRUETT, CMP, PBNP #### [address] [address] Total Protein 6.8 G/dL Normal 6.4-8.2 [facility] ([place]) Comment on above: Performed By: #### Gustavo PRUETT, CMP, PBNP #### [facility] [address] [place], [place] [address] Urea nitrogen [Mass/Vol] 10 mg/dL Normal 7-18 [facility] ([place]) Comment on above: Performed By: #### Gustavo PRUETT, CMP, PBNP #### [place] [address] [place], [place] [address] COVD19 on 10-26-2022 SARS-CoV-2 (COVID-19) RNA Negative Normal Negative [facility] ([place]) IVANA+probe Ql (Unsp spec) Comment on above: Performed By: #### Gustavo PRUETT, GENE, PBNP #### [address] [address] SARS-CoV-2 (COVID-19) RNA IVANA+probe Ql Normal [facility] ([place]) (Unsp spec) Comment on above: Result Comment: Negative res ults do not preclude SARS-CoV-2 infection and should not be used as the sole basis for patient management decisions. Negative results must be combined with clinical observati ons, patient history, and ep idemiological information. There is a risk of false neg ative values resulting from improperly collected, transported, or handled specimens. There is a risk of false neg ative values due to the presence of sequence variants in the pathogen targets of the assay, procedural errors, amplification inhibitors in specimens, or inadequate numbers of organisms for amplification. RUFUS SARS-CoV-2 Assay is a Real-Time reverse-transcriptase polymerase chain reaction (RT-PCR) based qualitative in vitro diagnostic test intended for the qualitative detection of nucleic acid from the SARS-CoV-2 in nasopharyngeal swab specimens collected from individuals suspected of COVID-19 by their healthcare provider. Testing is limited to laboratories certified under the Clinical Laboratory Impr ovement Amendments of 1988 ( CLIA), 42 U.S.C. ?263a, to perform moderate and high complexity tests. COVID-19 Int Performed By: #### Gustavo PRUETT, CMP, PBNP #### [place] [address] [place], [place] [address] FLURSV on 10-26-2022 Flu A PCR (AO) Negative Normal Negative [facility] ([place]) Comment on above: Result Comment: Positive Res ults: Positive Flu A/B or RSV for by PCR. Positive test results do not rule out bacterial infection or co- infection with other pathogens. Test results should be interpreted i n conjunction with other lab oratory and clinical data. Negative Results: Negative f or by PCR. Negative test results do not preclude influenza virus or RSV infection and should not be used as the sole basis for diagnosis, treatment, or other management decis ions. There is a risk of fal se negative RSV results when at low concentration and in the presence of co-infection with high concentration of influenza A. Invalid Results: An Invalid result (INV) was obtained. The test was repeated with similar results. REPEAT COLLECTION AND TESTING IS RECOMMENDED. The Rufus Flu A/B & RSV Assa y is a real-time polymerase chain reaction (PCR) based qualitative in vitro diagnostic test for the direct detection and differentiation of influenza A virus, influenza B virus, and respiratory sync ytial virus (RSV) nucleic acid in nasopharyngeal swab (IV TECHNICIAN) specimens from patients with signs and symptoms of respiratory infection in conjunction with clinical and laborato ry findings. The test is int ended for use as an aid in the differential diagnosis of influenza A virus, influenza B virus, and RSV in humans and is not intended to detect influenza C. Performed By: #### FLYNN G FR, CMP, PBNP #### [address] [address] Flu B PCR (AO) Negative Normal Negative [facility] ([place]) Comment on above: Result Comment: Positive Res ults: Positive Flu A/B or RSV for by PCR. Positive test results do not rule out bacterial infection or co- infection with other pathogens. Test results should be interpreted i n conjunction with other lab oratory and clinical data. Negative Results: Negative f or by PCR. Negative test results do not preclude influenza virus or RSV infection and should not be used as the sole basis for diagnosis, treatment, or other management decis ions. There is a risk of fal se negative RSV results when at low concentration and in the presence of co-infection with high concentration of influenza A. Invalid Results: An Invalid result (INV) was obtained. The test was repeated with similar results. REPEAT COLLECTION AND TESTING IS RECOMMENDED. The Rufus Flu A/B & RSV Assa y is a real-time polymerase chain reaction (PCR) based qualitative in vitro diagnostic test for the direct detection and differentiation of influenza A virus, influenza B virus, and respiratory sync ytial virus (RSV) nucleic acid in nasopharyngeal swab (IV TECHNICIAN) specimens from patients with signs and symptoms of respiratory infection in conjunction with clinical and laborato ry findings. The test is int ended for use as an aid in the differential diagnosis of influenza A virus, influenza B virus, and RSV in humans and is not intended to detect influenza C. Performed By: #### Gustavo PRUETT, GENE, PBNP #### [place] [address] [place], [place] [address] RSV PCR (AO) Negative Normal Negative [facility] ([place]) Comment on above: Result Comment: Positive Res ults: Positive Flu A/B or RSV for by PCR. Positive test results do not rule out bacterial infection or co- infection with other pathogens. Test results should be interpreted i n conjunction with other lab oratory and clinical data. Negative Results: Negative f or by PCR. Negative test results do not preclude influenza virus or RSV infection and should not be used as the sole basis for diagnosis, treatment, or other management decis ions. There is a risk of fal se negative RSV results when at low concentration and in the presence of co-infection with high concentration of influenza A. Invalid Results: An Invalid result (INV) was obtained. The test was repeated with similar results. REPEAT COLLECTION AND TESTING IS RECOMMENDED. The Rufus Flu A/B & RSV Assa y is a real-time polymerase chain reaction (PCR) based qualitative in vitro diagnostic test for the direct detection and differentiation of influenza A virus, influenza B virus, and respiratory sync ytial virus (RSV) nucleic acid in nasopharyngeal swab (IV TECHNICIAN) specimens from patients with signs and symptoms of respiratory infection in conjunction with clinical and laborato ry findings. The test is int ended for use as an aid in the differential diagnosis of influenza A virus, influenza B virus, and RSV in humans and is not intended to detect influenza C. Performed By: #### Gustavo PRUETT, GENE, PBNP #### [place] [id number] [place], [place] [address] LABORATORY Ordered By: Mely Fay on 10-26-2022 FLUAV RNA IVANA+probe Negative Invalid Negative AO Auto Urine Ql (Upper resp) (10/26/22 5:52 PM) Interpretation Code SS FLUBV RNA IVANA+probe Negative Invalid Negative AO Auto Urine Ql (Upper resp) (10/26/22 5:52 PM) Interpretation Code SS RSV RNA IVANA+probe Ql Negative Invalid Negative AO Auto Urine (Upper resp) (10/26/22 5:52 PM) Interpretation Code SS SARS-CoV-2 Negative results do Invalid AO Auto Urine (COVID-19) RNA not preclude Interpretation Code SS IVANA+probe Ql (Resp) SARS-CoV-2 infection and should not be used as the sole basis for patient management decisions. Negative results must be combined with clinical observations, patient history, and epidemiological information.There is a risk of false negative values resulting from improperly collected, transported, or handled specimens.There is a risk of false negative values due to the presence of sequence variants in the pathogen targets of the assay, procedural errors, amplification inhibitors in specimens, or inadequate numbers of organisms for amplification.RUFUS SARS-CoV-2 Assay is a Real-Time reverse-transcriptas e polymerase chain reaction (RT-PCR) based qualitative in vitro diagnostic test intended for the qualitative detection of nucleic acid from the SARS-CoV-2 in nasopharyngeal swab specimens collected from individuals suspected of COVID-19 by their healthcare provider. Testing is limited to laboratories certified under the Clinical Laboratory Improvement Amendments of 1988 (CLIA), 42 U.S.C. 263a, to perform moderate and high complexity tests. Amphetamines Screen Negative Invalid AO Manua l Ql (U) (10/26/22 5:34 PM) Interpretation Code Ur ine SS Appearance (U) Clear Invalid Clear AO Auto Urine (10/26/22 5:34 PM) Interpretation Code SS Barbiturates Screen Negative Invalid AO Manua l Ql (U) (10/26/22 5:34 PM) Interpretation Code Ur ine SS Basophil, Absolute 0.1 103/mcL Invalid 0.0 - 0.2 AO Workfl ow Interpretation Code 10^3/mcL SS Basophils/100 WBC 1.6 % Invalid 0.0 - 2.5 % AO Workflo w (Bld) Interpretation Code SS Benzodiazepines Ql Negative Invalid AO Manual (U) (10/26/22 5:34 PM) Interpretation Code Ur ine SS Benzoylecgonine Negative Invalid AO Manual Screen Ql (U) (10/26/22 5:34 PM) Interpretation Code U rine SS Bilirubin Ql (U) Negative Invalid Negative AO Auto Uri ne (10/26/22 5:34 PM) Interpretation Code SS Cannabinoids tested Negative Invalid AO Manua l Screen Nom (U) (10/26/22 5:34 PM) Interpretation Code Urine SS Color (U) Yellow Invalid AO Auto Urine (10/26/22 5:34 PM) Interpretation Code SS Eosinophil, Absolute 0.2 103/mcL Invalid 0.0 - 0.4 AO Work flow Interpretation Code 10^3/mcL SS Eosinophils/100 WBC 2.3 % Invalid 0.0 - 7.0 % AO Workf low (Bld) Interpretation Code SS Erythrocyte 17.6 % Invalid 11.5 - 14.5 % AO Workflow distribution width Interpretation Code SS (RBC) [Ratio] Glucose Test strip Negative Invalid Negativemg/dL AO Auto Urine (U) [Mass/Vol] Interpretation Code SS Hematocrit (Bld) 39.9 % Invalid 37.0 - 47.0 % AO Workflo w [Volume fraction] Interpretation Code SS Hemoglobin (Bld) 13.3 G/dL Invalid 12.0 - 16.0 AO Workflow [Mass/Vol] Interpretation Code G/dL SS Hemoglobin Auto test Negative Invalid Negative AO Auto Urine strip (U) [Mass/Vol] (10/26/22 5:34 PM) Interpretation Code SS Ketones Ql (U) Negative Invalid Negativemg/dL AO Auto Urin e Interpretation Code SS Lymphocyte, Absolute 2.1 103/mcL Invalid 0.8 - 3.9 AO Work flow Interpretation Code 10^3/mcL SS Lymphocytes/100 WBC 29.5 % Invalid 10.0 - 50.0 % AO Work flow (Bld) Interpretation Code SS MCH (RBC) [Entitic 32.2 pg Invalid 27.0 - 31.2 AO Workfl ow mass] Interpretation Code pg SS MCHC 33.4 G/dL Invalid 33.0 - 37.0 AO Workflow Interpretation Code G/dL SS MCV (RBC) [Entitic 96.4 fL Invalid 80.0 - 94.0 AO Workfl ow vol] Interpretation Code fL SS Methadone Screen Ql Negative Invalid AO Manua l (U) (10/26/22 5:34 PM) Interpretation Code Ur ine SS Monocyte 17.60 Invalid 0.00 - 20.00 AO Workflow distribution width Interpretation Code SS Auto (Bld) [Entitic vol] Comment on above: Result Comment: For ED adult patients suspected of sepsis, MDW<=20.0 does not rule out sepsis or risk of sepsis Monocyte, Absolute 0.6 103/mcL Invalid 0.2 - 1.0 AO Workfl ow SS Interpretation Code 10^3/mcL Monocytes/100 WBC 8.6 % Invalid 1.7 - 13.0 % AO Workflo w SS (Bld) Interpretation Code Neutrophil, Absolute 4.1 103/mcL Invalid 2.9 - 6.2 AO Work flow SS Interpretation Code 10^3/mcL Neutrophils/100 WBC 58.0 % Invalid 37.0 - 80.0 % AO Work flow SS (Bld) Interpretation Code Opiates Screen Ql (U) Negative Invalid AO Man ual (10/26/22 5:34 PM) Interpretation Code Ur ine SS Phencyclidine Ql (U) Negative Invalid AO Manu al (10/26/22 5:34 PM) Interpretation Code Ur ine SS Platelet mean volume 7.1 fL Invalid 7.4 - 10.4 fL AO Wor kflow SS (Bld) [Entitic vol] Interpretation Code Platelets (Bld) 387 103/mcL Invalid 130 - 400 AO Workflow SS [#/Vol] Interpretation Code 10^3/mcL RBC (Bld) [#/Vol] 4.14 106/mcL Invalid 4.20 - 5.40 AO Workflo w SS Interpretation Code 10^6/mcL Tricyclic Negative Invalid AO Manual antidepressants Screen (10/26/22 5:34 PM) Interpretation Code Urine SS Ql (U) UA Leuk Est Negative Invalid Negative AO Auto Urine (10/26/22 5:34 PM) Interpretation Code SS UA Nitrite Negative Invalid Negative AO Auto Urine (10/26/22 5:34 PM) Interpretation Code SS UA pH 5.5 Invalid 5.0 - 8.0 AO Auto Urine (10/26/22 5:34 PM) Interpretation Code SS UA Protein Negative Invalid Negativemg/dL AO Auto Urine Interpretation Code SS UA Spec Grav <=1.005 Invalid 1.015-1.025 AO Auto Urine *ABN* Interpretation Code SS (10/26/22 5:34 PM) UA Specimen Type Not Given Invalid AO Auto Uri ne (10/26/22 5:34 PM) Interpretation Code SS UA Urobilinogen 0.2 E.U./dL Invalid 0.2-1.0E.U./dL AO Auto Ur ine Interpretation Code SS WBC (Bld) [#/Vol] 7.1 103/mcL Invalid 4.6 - 10.8 AO Workflo w SS Interpretation Code 10^3/mcL LABORATORY Ordered By: SYSTEM SYSTEM on 10-26-2022 Albumin BCP dye 3.3 G/dL Invalid Interpretation 3.4 - 4.8 AO ADM SS [Mass/Vol] Code G/dL Albumin/Globulin 0.9 {ratio} Invalid Interpretation 1.1 - 2.5 A O ADM SS [Mass ratio] Code ratio ALP [Catalytic 83 U/L Invalid Interpretation 40 - 135 U/L AO ADM SS activity/Vol] Code ALT With P-5'-P 29 U/L Invalid Interpretation 14 - 59 U/L AO ADM SS [Catalytic Code activity/Vol] AST With P-5'-P 21 U/L Invalid Interpretation 10 - 40 U/L AO ADM SS [Catalytic Code activity/Vol] Bilirubin [Mass/Vol] 0.1 mg/dL Invalid Interpretation 0.2 - 1.0 AO ADM SS Code mg/dL Calcium [Mass/Vol] 8.5 mg/dL Invalid Interpretation 8.4 - 10.2 AO ADM SS Code mg/dL Chloride [Moles/Vol] 104 mmol/L Invalid Interpretation 98 - 107 AO ADM SS Code mmol/L CO2 [Moles/Vol] 28 mmol/L Invalid Interpretation 23 - 31 AO ADM SS Code mmol/L Creatinine 0.71 mg/dL Invalid Interpretation 0.55 - 1.02 AO AD M SS [Mass/Vol] Code mg/dL Electrolyte Balance 8.0 mEq/L Invalid Interpretation 4.0 - 15.0 AO ADM SS Code mEq/L GFR 100 Invalid Interpretation AO Chemistry S ml/min/1.73sqm Code GFR Non- 82 Invalid Interpretation AO Chemistry S Portuguese ml/min/1.73sqm Code Globulin 3.5 G/dL Invalid Interpretation AO AD M SS Code Glucose [Mass/Vol] 88 mg/dL Invalid Interpretation 80 - 115 AO ADM SS Code mg/dL Natriuretic 521 pg/mL Invalid Interpretation 0 - 125 pg/mL AO A DM SS peptide.B prohormone Code N-Terminal [Mass/Vol] Potassium 4.5 mmol/L Invalid Interpretation 3.5 - 5.1 AO AD M SS [Moles/Vol] Code mmol/L Protein [Mass/Vol] 6.8 G/dL Invalid Interpretation 6.4 - 8.2 AO ADM SS Code G/dL Sodium [Moles/Vol] 140 mmol/L Invalid Interpretation 136 - 145 AO ADM SS Code mmol/L Troponin I.cardiac 15.6 ng/L Invalid Interpretation 0.0 - 51.4 AO ADM SS DL <= 0.01 ng/mL Code ng/L [Mass/Vol] Urea nitrogen 10 mg/dL Invalid Interpretation 7 - 18 mg/dL AO A DM SS [Mass/Vol] Code Urea 14 ratio Invalid Interpretation 7 - 27 ratio AO AD M SS nitrogen/Creatinine Code [Mass ratio] PBNP on 10-26-2022 Natriuretic peptide B (Bld) 521 pg/mL High 0-125 [facility] ([place]) [Mass/Vol] Comment on above: Result Comment: NT-proBNP re sults of less than 300 pg/mL effectively rules out acute congestive h eart failure with 99% negative predictive value. Performed By: #### TROPHS, G FR, CMP, PBNP #### [address] [address] TOXSC on 10-26-2022 U Ampheta (AO) Negative Normal [facility] ([place]) Comment on above: Performed By: #### UA, TOXSC #### [address] [address] U Nanci (AO) Negative [facility] ([place]) Comment on above: Performed By: #### UA, TOXSC #### [address] [address] U Heron (AO) Negative [facility] ([place] Comment on above: Performed By: #### UA, TOXSC #### [address] [address] U Cannab (AO) Negative [facility] ([place]) Comment on above: Performed By: #### UA, TOXSC #### [address] [address] U Cocaine (AO) Negative Normal [facility] ([place]) Comment on above: Performed By: #### UA, TOXSC #### [address] [place] [address] U Methadone (AO) Negative [facility] ([place]) Comment on above: Performed By: #### UA, TOXSC #### [address] [address] U PCP (AO) Negative Normal [facility] ([place]) Comment on above: Performed By: #### UA, TOXSC #### [address] [address] U TCA (AO) Negative [facility] ([place] Comment on above: Performed By: #### UA, TOXSC #### [address] [address] Urine Opiates (AO) Negative [facility] ([place]) Comment on above: Performed By: #### UA, TOXSC #### [address] [address] TROPHS on 10-26-2022 Troponin I High Sensitivity 15.6 ng/L Normal 0.0-51.4 [facility] ([place]) Comment on above: Performed By: #### TROPHS, G FR, CMP, PBNP #### [address] [address] UA on 10-26-2022 Color (U) Yellow [facility] ([place] Comment on above: Performed By: #### UA, TOXSC #### [address] [address] Glucose (U) [Mass/Vol] Negative Normal Negative [facility] ([place]) Comment on above: Performed By: #### UA, TOXSC #### [address] [address] Ketones Ql (U) Negative Normal Negative [facility] ([place] Comment on above: Performed By: #### UA, TOXSC #### [address] [address] UA Appear Clear Normal Clear [facility] ([place] Comment on above: Performed By: #### UA, TOXSC #### [address] [address] UA Blood Negative Normal Negative [facility] ([place]) Comment on above: Performed By: #### UA, TOXSC #### [address] [address] UA Leuk Est Negative Normal Negative [facility] ([place] Comment on above: Performed By: #### UA, TOXSC #### [place] [address] UA Nitrite Negative Normal Negative [facility] ([place]) Comment on above: Performed By: #### UA, TOXSC #### [place] [address] UA pH 5.5 Normal 5.0 - 8.0 [facility] ([place]) Comment on above: Performed By: #### UA, TOXSC #### [place] [address] UA Protein Negative Normal Negative [facility] ([place]) Comment on above: Performed By: #### UA, TOXSC #### [place] [address] UA Spec Grav <=1.005 Abnormal 1.015-1.025 [facility] ([place]) Comment on above: Performed By: #### UA, TOXSC #### [place] [address] UA Specimen Type Not Given Normal [facility] ([place]) Comment on above: Performed By: #### UA, TOXSC #### [place] [address] UA Urobilinogen 0.2 E.U./dL Normal 0.2-1.0 [facility] ([place]) Comment on above: Performed By: #### UA, TOXSC #### [place] [address] Urobilinogen (U) [Mass/Vol] Negative Normal Negative [facility] ([place]) Comment on above: Performed By: #### UA, TOXSC #### [address] [place] [address] XR CHEST 1 VIEW on 10-26-2022 XR CHEST 1 VIEW ORIGINAL Normal [facility] EXAMINATION: ([place]) ONE XRAY VIEW OF THE CHEST10/26/2022 6:34 pm CHEST ONE VIEW AP/PA COMPARISON: 05/02/2022 chest x-ray and 08/05/2012 CT scan. HISTORY: ORDERING SYSTEM PROVIDED HISTORY: Reason for Exam: cough, sob FINDINGS: Heart size and vascularity are within normal limits. The lungs are clear of focal consolidation. No effusio n, pneumothorax, or acute osseous abnormality. Old right-sided posterior 9 th and 10th rib fractures are stable. IMPRESSION: No radiographic evidence of acute cardiopulmonary proc ess. Interpreted by: Zaid Mckeon MD Preliminary Report By: Zaid Mckeon MD Electronically signed By Zaid Mckeon MD Dictated Date: 10/26/2022 7:05:14 PM Prelim Date: 10/26/2022 7:06:29 PM Sign Date: 10/26/2022 7:06:29 PM Ordering Provider: BRIAN ALMONTE on 10-02-2022 CNOV [facility]ASSWS[id number] 1955 [facility] Date Time Provider Department 10/02/22 10:00 AM TAWNY SELF VASTORIS During your visit today, we recorded the following inf ormation about you: Pulse Blood pressure Weight Height 86/minute 155/87 59 kg 1.621 m Tawny Self DO 10/02/2022 10:38 AM Signed This office note has been dictated. Tawny Self DO Referring Provider: ULISES HERMOSILLO [[id number]] Allergies As of Date: 10/02/2022 (No Known Allergies) Date Reviewed: 10/02/2022 Reviewed by: YASSINE Hobson - Fully Assessed Reason for Visit: Established Patient [175] Visit Diagnosis:PAD (peripheral artery disease) ([facility]) [I73.9] Order(s):CONSULT TO VASCULAR SURGERY [9042] Order #: 1 [id number]: 1 [facility]G [facility] [[id number]] Order #: [id number] FUTU RE Prescriptions as of 10/02/2022 - nystatin (MYCOSTATIN) 100,000 unit/mL suspension Take 5 mL by mouth four times daily. 1tsp swish in mouth for several minutes, then swallow (or expectorate) 4 times daily until gone . - acetaminophen (TYLENOL EXTRA STRENGTH) 500 mg tablet Take 1 tablet by mouth every 8 hours as needed for kerry n. - venlafaxine ER (EFFEXOR XR) 150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 CM with [facility] calls t o let provider know that care plans for patient are available on the portal now. February also wants to let provider know that on at 4 pm they will be having a rounding meeting and if provider would lik e to attend he can contact them at [phone] Option 3 to arrange. AAMIR Coffman MD 08/16/2022 1:08 AM Signed No thanks. Allergies As of Date: 08/13/2022 (No Known Allergies) Date Reviewed: 07/31/2022 Reviewed by: Karly Garcia, MELISSA.FISH HATCHERY WORKER - [place] vicente Assessed Reason for Visit: Patient Update [1234] Prescriptions as of 08/16/2022 - traZODone (DESYREL) 100 mg tablet Take 2 tablets by mouth daily at bedtime. - qjothbrcjql-xwepgfmah-bwpduaey (TRELEGY ELLIPT A) 200-62.5-25 mcg inhalation powder Inhale 1 Puff as instructed once daily. - budesonide-formoterol (SYMBICORT) 160-4.5 mcg/actuat ion inhaler Inhale 2 Puffs as instructed twice daily. - albuterol HFA (VENTOLIN HFA) 90 mcg/actuation inhale r Inhale 2 Puffs as instructed every 6 hours as needed f or wheezing/shortness of breath. - amLODIPine (NORVASC) 10 mg tablet TAKE 1 TABLET BY MOUTH EVERY DAY - omeprazole (PRILOSEC) 40 mg capsule Take 1 capsule by mouth once daily. - lisinopril (ZESTRIL, PRINIVIL) 40 mg tablet Take 1 tablet by mouth once daily. - venlafaxine ER (EFFEXOR XR) 150 mg 24 hr capsule Take 1 capsule by mouth once daily. - isosorbide mononitrate ER (IMDUR) 30 mg 24 hr tablet TAKE 1 TABLET BY MOUTH EVERY DAY - carvedilol (COREG) 6.25 mg tablet TAKE 1 TABLET BY MOUTH TWICE A DAY - atorvastatin (LIPITOR) 80 mg tablet TAKE 1 TABLET BY MOUTH EVERY DAY - aspirin 81 mg chewable tablet Take 1 tablet by mouth once daily. - clopidogrel (PLAVIX) 75 mg tablet Take 1 tablet by mouth once daily. - clopidogrel (PLAVIX) 75 mg tablet Take 1 tablet by mouth once daily. Facility-Administered Medications as of 08/16/2022 - perflutren lipid microspheres 1.3 mL in NaCl (PF) 0. 9% 10 mL injection (DEFINITY) - sodium chloride 0.9 % (flush) 10 mL (BD POSIFLUSH) Problem List As Of Date 08/13/2022 Noted Resolved Essential hypertension [I10] 12/14/2015 Recurrent major depression in partial remission*2015 Anxiety [F41.9] 12/14/2015 01/06/2021 Bipolar affective disorder, currently active (H*2015 History of alcohol abuse [F10.11] 01/18/2016 Chronic bronchitis (HCC) [J42] 07/26/2016 Hyperkalemia [E87.5] 07/27/2016 11/27/2018 Polycythemia [D75.1] 07/27/2016 11/27/2018 Spinal stenosis, lumbar region without neurogen*2018 Radiculopathy, lumbar region [M54.16] 12/01/2018 Smoker [F17.200] 03/13/2019 GERD (gastroesophageal reflux disease) [K21.9] 019 Primary osteoarthritis of right hip [M16.11] 9 10/06/2019 History of total right hip arthroplasty [Z96.64*201807/07/2020 Seasonal allergies [J30.2] 05/04/2019 Preop cardiovascular exam [Z01.810] 09/28/2019 019 Precordial pain, short lived, 3-5 minutes, none*201807/07/2020 PAD (peripheral artery disease) ([facility]) [I73.9] 09/28/20 19 Anxiety and depression [F41.9, F32.A] 10/06/2019 Hypomagnesemia [E83.42] 10/22/2019 10/23/2019 Asthma [J45.909] 07/07/2020 07/07/2020 Prediabetes [R73.03] 02/04/2021 Chest pain [R07.9] 05/08/2021 Other chest pain [R07.89] 05/08/2021 Stenosis of carotid artery [I65.29] 05/08/2021 Mixed hyperlipidemia [E78.2] 05/08/2021 Abnormal stress test [R94.39] 08/26/2021 Dyspnea on exertion [R06.09] 08/26/2021 Coronary artery disease involving [place] tolbert*2020 Encounter Status:Closed by ULISES HERMOSILLO on 08/16 [facility] VINCE KOENIG ([id number]) 1955 [facility] Date Time Provider Department 08/02/22 TAWNY SELF During your visit today, we recorded the following inf ormation about you: Nevin Galehenrry 08/02/2022 12:40 PM Signed Please call patient to schedule testing prior to appt on 08/14/2022 Thank you Allergies As of Date: 08/02/2022 (No Known Allergies) Date Reviewed: 07/31/2022 Reviewed by: Karly Garcia APRN.FISH HATCHERY WORKER - [place] vicente Assessed Reason for Visit: Appointment [186] Prescriptions as of 08/10/2022 - traZODone (DESYREL) 100 mg tablet Take 2 tablets by mouth daily at bedtime. - brxfuqxmtry-yrrcauzkk-qvewyvtu (TRELEGY ELLIPT A) 200-62.5-25 mcg inhalation powder Inhale 1 Puff as instructed once daily. - budesonide-formoterol (SYMBICORT) 160-4.5 mcg/actuat ion inhaler Inhale 2 Puffs as instructed twice daily. - albuterol HFA (VENTOLIN HFA) 90 mcg/actuation inhale r Inhale 2 Puffs as instructed every 6 hours as needed f or wheezing/shortness of breath. - amLODIPine (NORVASC) 10 mg tablet TAKE 1 TABLET BY MOUTH EVERY DAY - omeprazole (PRILOSEC) 40 mg capsule Take 1 capsule by mouth once daily. - lisinopril (ZESTRIL, PRINIVIL) 40 mg tablet Take 1 tablet by mouth once daily. - venlafaxine ER (EFFEXOR XR) 150 mg 24 hr capsule Take 1 capsule by mouth once daily. - isosorbide mononitrate ER (IMDUR) 30 mg 24 hr tablet TAKE 1 TABLET BY MOUTH EVERY DAY - carvedilol (COREG) 6.25 mg tablet TAKE 1 TABLET BY MOUTH TWICE A DAY - atorvastatin (LIPITOR) 80 mg tablet TAKE 1 TABLET BY MOUTH EVERY DAY - aspirin 81 mg chewable tablet Take 1 tablet by mouth once daily. - clopidogrel (PLAVIX) 75 mg tablet Take 1 tablet by mouth once daily. - clopidogrel (PLAVIX) 75 mg tablet Take 1 tablet by mouth once daily. Facility-Administered Medications as of 08/10/2022 - perflutren lipid microspheres 1.3 mL in NaCl (PF) 0. 9% 10 mL injection (DEFINITY) - sodium chloride 0.9 % (flush) 10 mL (BD POSIFLUSH) Problem List As Of Date 08/02/2022 Noted Resolved Essential hypertension [I10] 12/14/2015 Recurrent major depression in partial remission*2015 Anxiety [F41.9] 12/14/2015 01/06/2021 Bipolar affective disorder, currently active (H*2015 History of alcohol abuse [F10.11] 01/18/2016 Chronic bronchitis (HCC) [J42] 07/26/2016 Hyperkalemia [E87.5] 07/27/2016 11/27/2018 Polycythemia [D75.1] 07/27/2016 11/27/2018 Spinal stenosis, lumbar region without neurogen*2018 Radiculopathy, lumbar region [M54.16] 12/01/2018 Smoker [F17.200] 03/13/2019 GERD (gastroesophageal reflux disease) [K21.9] 019 Primary osteoarthritis of right hip [M16.11] 9 10/06/2019 History of total right hip arthroplasty [Z96.64*201807/07/2020 Seasonal allergies [J30.2] 05/04/2019 Preop cardiovascular exam [Z01.810] 09/28/2019 019 Precordial pain, short lived, 3-5 minutes, none*201807/07/2020 PAD (peripheral artery disease) ([facility]) [I73.9] 09/28/20 19 Anxiety and depression [F41.9, F32.A] 10/06/2019 Hypomagnesemia [E83.42] 10/22/2019 10/23/2019 Asthma [J45.909] 07/07/2020 07/07/2020 Prediabetes [R73.03] 02/04/2021 Chest pain [R07.9] 05/08/2021 Other chest pain [R07.89] 05/08/2021 Stenosis of carotid artery [I65.29] 05/08/2021 Mixed hyperlipidemia [E78.2] 05/08/2021 Abnormal stress test [R94.39] 08/26/2021 Dyspnea on exertion [R06.09] 08/26/2021 Coronary artery disease involving [place] tolbert*2020 Encounter Status:Closed by NEVIN SMITH on CNOV on 07-31-2022 CNOV Office Visit ([facility]) [facility] VINCE KOENIG ([id number]) 1955 [facility] Time Provider Department 07/31/22 2:30 PM SAVANNA KENNY [facility] During your visit today, we recorded the following inf ormation about you: Pulse Blood pressure Weight 89/minute 148/82 60.3 kg Karly Garcia APRN.FISH HATCHERY WORKER 07/31/2022 4:53 PM Attested Attestation signed by Savanna Kenny APRN.LINDA a t 07/31/2022 4:53 PM TEACHING PROVIDER (Physician/PA/Z OS MAINFRAME SYSTEMS PROGRAMMER) NOTE OF PERSONAL INVOLVEMENT IN CARE: I have personally seen and examined the patient and pe rformed the medical decision-making components. I have reviewed the Kaur Loya 's documentation and verified the findings in the n ote as written. Any additions or changes are noted in bold/italics. Signature: Savanna Kenny APRN.FISH HATCHERY WORKER Date: 07/31/2022 Time: 4:53 PM Chief Complaint: Here to review results from LDCT scan dated 07/26/22 fo r LUNG RADS Category 2 finding. History of Present Illness: Vince Koenig is a 67 year old female who is prese nting today for pulmonary nodule follow-up. Nodule was found thr ough lung cancer screening on LDCT. Patient has a PMH significant for asthma, COPD, CAD s/p PCI, HTN, HLD. Patient is a current smoker with a 110 pack year histo ry. Currently still smoking 1 pack daily. Since the patient's last visit t he patient has not had new medical issues or hospitalizations. No recent resp iratory infections/pneumonia. Patient has some SOB with activity. Has wheezing. Candice ent denies feeling of chest tightness/congestion. Patient does not have a ne w or concerning cough, and denies hemoptysis. Patient has a chr onic daily productive cough with clear sputum. Denies recent fevers/chills but does report night sweats a few times a year that has been present for years . Patient does not have any significant unintentional weight loss, appetite is good. Is supposed to wear 2L NC at all times but only uses it at [facility] as she does not have a small portable O2 machine due to cost. Current respiratory medication includes T relegy daily and Symbicort daily and prn albuterol- using 2x daily. Per her last OV with her wholesale account manager, Symbicort was advised to be discontinue d as Trelegy was added on. Activity: Does light house work but has to stop in between chores to catch her breath. Gets SOB with showering or with walking from [facility] bedroom to her kitchen. The patient does not require assistance with normal activities of daily living. Modified Medical Research [place] Dyspnea Scale (MMRC) I stop for breath after walk ing about 100 yards or after a few minutes on level ground 3 History of respiratory exposures include: Occupational: None Environmental: Second had smoke exposure as a child Father and mother had lung cancer Past Medical History: PAST MEDICAL HISTORY Diagnosis Date Acute pancreatitis 2010 Anisha Cruz Alcohol use disorder 01/18/2016 [facility] Anxiety 12/14/2015 Bipolar affective disorder, currently active ([facility]) 07/2016 [facility] Chronic bronchitis ([facility]) 07/26/2016 Closed skull fracture ([facility]) 1994 [facility], [facility] Coronary artery disease DDD (degenerative disc disease), cervical Endometriosis 2007 Essential hypertension 12/14/2015 GERD (gastroesophageal reflux disease) 03/13/2019 History of colon polyps History of gastric ulcer 12/14/2015 HLD (hyperlipidemia) Injury of left facial nerve 1994 PAD (peripheral artery disease) ([facility]) 09/28/2019 Recurrent major depression in partial remission ([facility]) 12/14/2015 S/P drug eluting coronary stent placement 08/25/2021 LAD and Dg2 Spinal stenosis Surgical Hx: PAST SURGICAL HISTORY Procedure Laterality Date APPENDECTOMY 1979 ARTHRP ACETBLR/PROX FEM PROSTC AGRFT/ALGRFT Right 03/11 Hip replacement, total - Right CHOLECYSTECTOMY 1979 Cholecystectomy COLONOSCOPY 04/03/2017 diverticulosis- repeat 10 years COLONOSCOPY FLX DX W/COLLJ SPEC WHEN PFRMD 2010 Colonoscopy EGD 04/03/2017 Gastritis, duodenitis, GERD with esophagitis PAST SURGICAL HISTORY OF 1994 cervical disc surgery x 3 STENT PLACEMENT 08/25/2021 RODNEY LAD AND Dg2 TEAEC W/WO PATCH GRAFT DEEP PROFUNDA FEMORAL Right 08/2019 patch angioplasty, Right iliac stent TONSILLECTOMY PRIMARY/SECONDARY Tonsillectomy TOTAL ABDOMINAL HYSTERECT W/WO RMVL TUBE OVARY 1979 Hysterectomy, MAURA TOTAL FACIAL NERVE DECOMPRESSION AND/REPAIR Left 1989 [facility] Family Hx: FAMILY HISTORY Problem Relation Age of Onset Cancer Mother 50 lung cancer Hypertension Mother Cancer Father 50 lung cancer Cancer Sister 61 lung cancer Allergies: ALLERGIES No Known (more content not included)... CT LUNG SCREEN WO IVCON on 07-26-2022 CT LUNG * * *Final Report* * * [facility] DATE OF [facility]AM: Jul 26 2022 4:27PM [facility] 0562 - CT LUNG SCREEN WO IVCON / 2491 IVCON PROCEDURE REASON: multiple diagnoses * * * * Physician Interpretation * * * * EXAMINATION: CHEST CT WITHOUT CONTRAST (LOW-DOSE CT SOSA NG CANCER SCREENING PROTOCOL) CLINICAL HISTORY: Lung cancer LDCT screening ? absence of signs or symptoms of lung cancer. Nicotine dependence (jas es). Subsequent (annual) Technique: Spiral CT acquisition of the chest from the thoracic inlet to the upper abdomen without contrast. MQ: [id number] Patient characteristics: * Efnv-cy-Jvekh: 1955; Age at exam: 67 years * Gender: Female * Lung Disease: Asymptomatic (no signs or symptoms of lung disease) * Number of Pack Years: 55 * Current smoker (=0) or Number of Years since Quit: 0 * Ordering provider and NPI: SAVANNA KENNY [id number] * Interpreting radiologist and NPI: Ervni [id number] Exam acquisition parameters: * Exam Date: 07/26/2022 4:27 PM * Site: [facility] * * CT System Butcher All Round: [employer] * CT System Model: Dual Source * Tube Current-Time (mA-sec): 25 * Peak Voltage (kV): 120V * Scan Time (sec): 6.73 * Scan Volume (z-length, cm): 36.00 * Pitch: 1.0 * Slice Thickness (mm): 1.5 * CT Dose-Length Product: 56.8 mGy*cm * CT Dose Index: 1.45mGy * CT Dose Reduction Method: mAs-kVp adjusted based on patient size-age COMPARISON: 02/03/2021. RESULT: Are nodules present? Yes, 1-5 nodules Nodule 1: This Solid nodule is located in the Right Up per Lobe on slice number 103 with an average diameter of 8.2 mm (9.7 mm x 6.8 mm). Other lung nodule comments: None. Other findings: There is severe centrilobular emphysem a with diffuse bronchial wall thickening. No focal consolidation. Sumi ear atelectasis at the lung bases. The imaged thyroid gland is unremar kable. No thoracic lymphadenopathy. There are atherosclerotic ca lcifications in the thoracic aorta. The thoracic aorta and main pulmon gabriel artery are normal in caliber. The cardiac chambers are normal in size. There are triple-vessel coronary artery calcifications noting LA D stents. No pericardial effusion or pericardial thickening. The im aged upper abdomen is stable without acute abnormality. Emphysema: Severe (50-75%), centrilobular, diffuse Coronary Artery Calcifications: Circumflex mild; Left Anterior Descending stents in place; Right Coronary mild [employer] Weighter (topogram) images: No additional findings. IMPRESSION: LungRADS category: 2 LungRADS modifier: None LungRADS 0 reason: n/a Recommendations: Continue annual screening with LDCT in 12 months. Other actionable findings: Reference: [employer]. Lung CT Screening Repor ting and Data System (Lung-RADS). Available at: http://www.acr.org/Quality-Safety/Resources/LungRADS Child Abuse Worker: SRAVANI Transcribe Date/Time: Jul 27 2022 8:04A Dictated by : VEE GAMINO MD This examination was interpreted and the report review ed and electronically signed by: VEE GAMINO MD on Jul 27 2022 8:16AM EST [id number] [facility] CNPN Telephone (VASD) [facility] VINCE KOENIG ([id number]) 1955 [facility] Date Time Provider Department 07/13/22 TAWNY SELF During your visit today, we recorded the following inf ormation about you: Nevin Smith 07/13/2022 3:17 PM Signed Called patient to inform she needs testing prior to ap pt 07/17/22 She reports she is having significant pain in her righ t leg. The soonest testing appt [facility] has available is 07/25. Patient is tentatively scheduled on that day. Appt needs to be rescheduled. Discussed with patient s he could come for the visit on 07/17/22 however the testing is necessary to se e if there is anything new going on since her last scan. Left patient a voicemail with this information, advise d she could call the office for other appt options in [place]. Maritza De Los Santos 07/13/2022 3:54 PM Signed Patient called back in regard to message left for her. Informed her that she needs to complete testing first before she has appt wi th Dr. Self. She verbalized understanding. I informed her of when her testing is on 07/26/2022 in [place] and rescheduled her appt with Dr. Self in [place] on 09/11/2022 since that was the soonest available she could go to. She's been added to the waitlist for this appt as well. Thank you. Maritza Galindo Pss 07/17/2022 2:04 PM Signed Left message to advise appointment with Dr Self has been moved up to August 4ht @ 10:15 in the [place] . Allergies As of Date: 07/13/2022 (No Known Allergies) Date Reviewed: 06/06/2022 Reviewed by: Zuleika Goetz - Fully Assessed Reason for Visit: Appointment [186] Prescriptions as of 07/18/2022 - traZODone (DESYREL) 100 mg tablet Take 2 tablets by mouth daily at bedtime. - albuterol HFA (VENTOLIN HFA) 90 mcg/actuation inhale r Inhale 2 Puffs as instructed every 6 hours as needed f or wheezing/shortness of breath. - vguuimatfwm-bomspwgup-azimdbta (TRELEGY ELLIPT A) 200-62.5-25 mcg inhalation powder Inhale 1 Puff as instructed once daily. - amLODIPine (NORVASC) 10 mg tablet TAKE 1 TABLET BY MOUTH EVERY DAY - omeprazole (PRILOSEC) 40 mg capsule Take 1 capsule by mouth once daily. - lisinopril (ZESTRIL, PRINIVIL) 40 mg tablet Take 1 tablet by mouth once daily. - venlafaxine ER (EFFEXOR XR) 150 mg 24 hr capsule Take 1 capsule by mouth once daily. - isosorbide mononitrate ER (IMDUR) 30 mg 24 hr tablet TAKE 1 TABLET BY MOUTH EVERY DAY - carvedilol (COREG) 6.25 mg tablet TAKE 1 TABLET BY MOUTH TWICE A DAY - atorvastatin (LIPITOR) 80 mg tablet TAKE 1 TABLET BY MOUTH EVERY DAY - aspirin 81 mg chewable tablet Take 1 tablet by mouth once daily. - clopidogrel (PLAVIX) 75 mg tablet Take 1 tablet by mouth once daily. - clopidogrel (PLAVIX) 75 mg tablet Take 1 tablet by mouth once daily. Facility-Administered Medications as of 07/18/2022 - perflutren lipid microspheres 1.3 mL in NaCl (PF) 0. 9% 10 mL injection (DEFINITY) - sodium chloride 0.9 % (flush) 10 mL (BD POSIFLUSH) Problem List As Of Date 07/13/2022 Noted Resolved Essential hypertension [I10] 12/14/2015 Recurrent major depression in partial remission*2015 Anxiety [F41.9] 12/14/2015 01/06/2021 Bipolar affective disorder, currently active (H*2015 History of alcohol abuse [F10.11] 01/18/2016 Chronic bronchitis (HCC) [J42] 07/26/2016 Hyperkalemia [E87.5] 07/27/2016 11/27/2018 Polycythemia [D75.1] 07/27/2016 11/27/2018 Spinal stenosis, lumbar region without neurogen*2018 Radiculopathy, lumbar region [M54.16] 12/01/2018 Smoker [F17.200] 03/13/2019 GERD (gastroesophageal reflux disease) [K21.9] 019 Primary osteoarthritis of right hip [M16.11] 9 10/06/2019 History of total right hip arthroplasty [Z96.64*201807/07/2020 Seasonal allergies [J30.2] 05/04/2019 Preop cardiovascular exam [Z01.810] 09/28/2019 019 Precordial pain, short lived, 3-5 minutes, none*201807/07/2020 PAD (peripheral artery disease) ([facility]) [I73.9] 09/28/20 19 Anxiety and depression [F41.9, F32.A] 10/06/2019 Hypomagnesemia [E83.42] 10/22/2019 10/23/2019 Asthma [J45.909] 07/07/2020 07/07/2020 Prediabetes [R73.03] 02/04/2021 Chest pain [R07.9] 05/08/2021 Other chest pain [R07.89] 05/08/2021 Stenosis of carotid artery [I65.29] 05/08/2021 Mixed hyperlipidemia [E78.2] 05/08/2021 Abnormal stress test [R94.39] 08/26/2021 Dyspnea on exertion [R06.09] 08/26/2021 Coronary artery disease involving [place] tolbert*2020 Encounter Status:Closed by NEVIN SMITH on 2 OXIMETRY WITH AMBULATION on 07-09-2022 [facility] CNPN on 07-06-2022 CNPN Telephone ([facility]) [facility] VINCE Burk ([id number]) 1955 [place] Date Time Provider Department 07/06/22 MARGARET SHRESTHA [facility] During your visit today, we recorded the following inf ormation about you: Margaret Shrestha MD 07/06/2022 11:30 AM Signed Order for oximetry Allergies As of Date: 07/06/2022 (No Known Allergies) Date Reviewed: 06/06/2022 Reviewed by: Zuleika Goetz - Fully Assessed Reason for Visit: Orders [681] Primary Visit Diagnosis:SOB (shortness of breath) [R06 .02] Order(s):OXIMETRY WITH AMBULATION [[id number]] Order #: 1 [id number]: 1 FUTURE Prescriptions as of 07/06/2022 - traZODone (DESYREL) 100 mg tablet Take 2 tablets by mouth daily at bedtime. - albuterol HFA (VENTOLIN HFA) 90 mcg/actuation inhale r Inhale 2 Puffs as instructed every 6 hours as needed f or wheezing/shortness of breath. - sntxxgaiqov-yhgrxhsgm-sushlzja (TRELEGY ELLIPT A) 200-62.5-25 mcg inhalation powder Inhale 1 Puff as instructed once daily. - amLODIPine (NORVASC) 10 mg tablet TAKE 1 TABLET BY MOUTH EVERY DAY - omeprazole (PRILOSEC) 40 mg capsule Take 1 capsule by mouth once daily. - lisinopril (ZESTRIL, PRINIVIL) 40 mg tablet Take 1 tablet by mouth once daily. - venlafaxine ER (EFFEXOR XR) 150 mg 24 hr capsule Take 1 capsule by mouth once daily. - isosorbide mononitrate ER (IMDUR) 30 mg 24 hr tablet TAKE 1 TABLET BY MOUTH EVERY DAY - carvedilol (COREG) 6.25 mg tablet TAKE 1 TABLET BY MOUTH TWICE A DAY - atorvastatin (LIPITOR) 80 mg tablet TAKE 1 TABLET BY MOUTH EVERY DAY - aspirin 81 mg chewable tablet Take 1 tablet by mouth once daily. - clopidogrel (PLAVIX) 75 mg tablet Take 1 tablet by mouth once daily. - clopidogrel (PLAVIX) 75 mg tablet Take 1 tablet by mouth once daily. Facility-Administered Medications as of 07/06/2022 - perflutren lipid microspheres 1.3 mL in NaCl (PF) 0. 9% 10 mL injection (DEFINITY) - sodium chloride 0.9 % (flush) 10 mL (BD POSIFLUSH) Problem List As Of Date 07/06/2022 Noted Resolved Essential hypertension [I10] 12/14/2015 Recurrent major depression in partial remission*2015 Anxiety [F41.9] 12/14/2015 01/06/2021 Bipolar affective disorder, currently active (H*2015 History of alcohol abuse [F10.11] 01/18/2016 Chronic bronchitis (HCC) [J42] 07/26/2016 Hyperkalemia [E87.5] 07/27/2016 11/27/2018 Polycythemia [D75.1] 07/27/2016 11/27/2018 Spinal stenosis, lumbar region without neurogen*2018 Radiculopathy, lumbar region [M54.16] 12/01/2018 Smoker [F17.200] 03/13/2019 GERD (gastroesophageal reflux disease) [K21.9] 019 Primary osteoarthritis of right hip [M16.11] 9 10/06/2019 History of total right hip arthroplasty [Z96.64*201807/07/2020 Seasonal allergies [J30.2] 05/04/2019 Preop cardiovascular exam [Z01.810] 09/28/2019 019 Precordial pain, short lived, 3-5 minutes, none*201807/07/2020 PAD (peripheral artery disease) (HCC) [I73.9] 09/28/20 19 Anxiety and depression [F41.9, F32.A] 10/06/2019 Hypomagnesemia [E83.42] 10/22/2019 10/23/2019 Asthma [J45.909] 07/07/2020 07/07/2020 Prediabetes [R73.03] 02/04/2021 Chest pain [R07.9] 05/08/2021 Other chest pain [R07.89] 05/08/2021 Stenosis of carotid artery [I65.29] 05/08/2021 Mixed hyperlipidemia [E78.2] 05/08/2021 Abnormal stress test [R94.39] 08/26/2021 Dyspnea on exertion [R06.09] 08/26/2021 Coronary artery disease involving grand [place] tribes tolbert*2020 Encounter Status:Closed by MARGARET SHRESTHA on 07/06/22 CNCO on 06-12-2022 CNCO Letter Text [facility] on 06-06-2022 CNOV Office Visit ([facility]) [facility] VINCE KOENIG ([id number]) 1955 [facility] Date Time Provider Department 06/06/22 10:30 AM MARGARET SHRESTHA [facility] During your visit today, we recorded the following inf ormation about you: Pulse Blood pressure Weight Height 77/minute 173/84 58 kg 1.621 m Margaret Shrestha MD 06/06/2022 10:48 AM [facility] DEPART[facility] OF PULMONARY MEDICINE OFFICE VISIT CONSULT 06/06/2022 Patient Name: Vince Koenig PRIMARY CARE PHYSICIAN: Ulises Hermosillo MD REASON FOR CONSULT: Asthma -COPD overlap syndrome/smok ing REFERRING PHYSICIAN: Savanna Kenny, * My final recommendations will be communicated to the [facility] care provider by way of the shared medical record for [facility] providers or by letter via US mail for external providers. CHIEF COMPLAINT: Asthma -COPD overlap syndrome/smoking HISTORY OF PRESENT ILLNESS: Vince Koenig is a 67 year old female, Ht 162.1 cm (5' 3.82 ) BMI 22.07 kg/m2 with a PMH signifi cant for current everyday smoking, history of asthma since teenage, ART GILDER D, recently discharged from [facility] in [facility] where she was treated for COPD exacerbation and acute hypoxemic respiratory failure, coronary artery d isease here for evaluation. The patient was discharged home on oxygen supplementat ion to be used continuously at 2 L/min. The patient has wondering whether she needs to continu e using oxygen and his asking for portable oxygen concentrator. No new respiratory complaints today other than Chronic shortness of breath and cough and sputum produ ction She continues to smoke but cut down to less than a pac k a day She understand that she needs to quit smoking complete ly Symptoms are mild to moderate, persistent, occur mainl y on exertion and relieved by inhalers Recent hospital admissions: [facility] in [place] Medications: Symbicort, albuterol Most recent Radiology Most recent chest x-ray February 2021 prominent bronchova scular marking Most recent PFT: Spirometry today with severe airflow obstruction with borderline significant response to [facility] hodilators. Moderate reduction in DLCO Oxygen supplementation: 2 L/min MMRC Dyspnea Scale: 0. Not troubled by breathlessness except on strenuous exercise 1. Short of breath when hurrying or walking up a sligh t hill 2. Walks slower than contemporaries on [employer] he level because of breathlessness, or has to stop for breath when walking at own pace 3. Stops for breath after about 100 m or after a few m inutes on the level 4. Too breathless to leave [employer] he house, or breathless when dressing or undressing Environmental/ Occupational Exposure History: Pets: No birds Asbestos: No significant exposure Silica: No significant exposure [place]: No significant exposure Mold: No significant exposure Hot tub: No significant exposure Fumes: No significant exposure Metal dust: No significant exposure Beryllium: No significant exposure Dust: No significant exposure Medications: No relevant exposure for interstitial hamilton g diseases PAST MEDICAL HISTORY Diagnosis Date - Acute pancreatitis 2010 [facility] - Alcohol use disorder 01/18/2016 [facility] - Anxiety 12/14/2015 - Bipolar affective disorder, currently active ([facility]) 0 01/18/2016 [facility] - Chronic bronchitis ([facility]) 07/26/2016 - Closed skull fracture ([facility]) 1994 [facility], [facility] - Coronary artery disease - DDD (degenerative disc disease), cervical - Endometriosis 2007 - Essential hypertension 12/14/2015 - GERD (gastroesophageal reflux disease) 03/13/2019 - History of colon polyps - History of gastric ulcer 12/14/2015 - HLD (hyperlipidemia) - Injury of left facial nerve 1994 - PAD (peripheral artery disease) ([facility]) 09/28/2019 - Recurrent major depression in partial remission ([facility] ) 12/14/2015 - S/P drug eluting coronary stent placement 08/25/2021 LAD and Dg2 - Spinal stenosis PAST SURGICAL HISTORY Procedure Laterality Date - APPENDECTOMY 1979 - ARTHRP ACETBLR/PROX FEM PROSTC AGRFT/ALGRFT Right Hip replacement, total - Right - CHOLECYSTECTOMY 1979 Cholecystectomy - COLONOSCOPY 04/03/2017 diverticulosis- repeat 10 years - COLONOSCOPY FLX DX W/COLLJ SPEC WHEN PFRMD 2010 Colonoscopy - EGD 04/03/2017 Gastritis, duodenitis, GERD with esophagitis - PAST SURGICAL HISTORY OF 1994 cervical disc surgery x 3 - STENT PLACEMENT 08/25/2021 RODNEY LAD AND Dg2 - TEAEC W/WO PATCH GRAFT DEEP PROFUNDA FEMORAL Right 1 12/21/2018 patch angioplasty, Right iliac stent - TONSILLECTOMY PRIMARY/SECONDARY Tonsillectomy - TOTAL ABDOMINAL HYSTERECT W/WO RMVL TUBE OVARY 1979 Hysterectomy, MAURA - TOTAL FACIAL NERVE DECOMPRESSION AND/REPAIR Left 199 0 [facility] FAMILY HISTORY Problem Relation Age of Onset - Cancer Mother (more content not included)... CNPN on 06-04-2022 CNPN Telephone (INTMWS) [facility] VINCE KOENIG ([id number]) 1955 [facility] Date Time Provider Department 06/04/22 ULISES HERMOSILLO INTMWS During your visit today, we recorded the following inf ormation about you: Jaylyn Caceres RN 06/04/2022 10:11 AM Signed Celia Farah, reports she has received sever al orders for the Aerochamber spacer, electronically signed by Disability Advocate. State s she cannot accept this. Needs an actual prescription with name, address and signature of provider. Please send actual prescription. Fax number [phone]. Oly Smith APRN.LINDA 06/04/2022 11:46 AM Signed See phone note from 05/31, this was faxed and then re f axed on 06/04 Oly Smith APRN.FISH HATCHERY WORKER Natalie Blackman Ma 06/04/2022 12:50 PM Signed New order printed and faxed. Natalie Blackman Zhen Allergies As of Date: 06/04/2022 (No Known Allergies) Date Reviewed: 05/03/2022 Reviewed by: Tracy Ramires APRN.FISH HATCHERY WORKER - Fully Assesse d Reason for Visit: Aerochamber spacer [Other] Primary Visit Diagnosis:Color Drum Worker zay bronchitis, unspecified chronic bronchitis type (HCC) [J42] Order(s):Inhalational Spacing Device (AEROCHAMBER MV)1 Device one time only for 1 dose.Disp: 1 EachRfl: 0 Prescriptions as of 06/04/2022 - Inhalational Spacing Device (AEROCHAMBER MV) 1 Device one time only for 1 dose. - amLODIPine (NORVASC) 10 mg tablet TAKE 1 TABLET BY MOUTH EVERY DAY - budesonide-formoterol (SYMBICORT) 160-4.5 mcg/actuat ion inhaler Inhale 2 Puffs as instructed twice daily. - omeprazole (PRILOSEC) 40 mg capsule Take 1 capsule by mouth once daily. - traZODone (DESYREL) 100 mg tablet Take 2 tablets by mouth daily at bedtime. - lisinopril (ZESTRIL, PRINIVIL) 40 mg tablet Take 1 tablet by mouth once daily. - albuterol HFA (VENTOLIN HFA) 90 mcg/actuation inhale r Inhale 2 Puffs as instructed every 6 hours as needed f or wheezing/shortness of breath. - venlafaxine ER (EFFEXOR XR) 150 mg 24 hr capsule Take 1 capsule by mouth once daily. - isosorbide mononitrate ER (IMDUR) 30 mg 24 hr tablet TAKE 1 TABLET BY MOUTH EVERY DAY - carvedilol (COREG) 6.25 mg tablet TAKE 1 TABLET BY MOUTH TWICE A DAY - atorvastatin (LIPITOR) 80 mg tablet TAKE 1 TABLET BY MOUTH EVERY DAY - aspirin 81 mg chewable tablet Take 1 tablet by mouth once daily. - clopidogrel (PLAVIX) 75 mg tablet Take 1 tablet by mouth once daily. - clopidogrel (PLAVIX) 75 mg tablet Take 1 tablet by mouth once daily. Facility-Administered Medications as of 06/04/2022 - perflutren lipid microspheres 1.3 mL in NaCl (PF) 0. 9% 10 mL injection (DEFINITY) - sodium chloride 0.9 % (flush) 10 mL (BD POSIFLUSH) Problem List As Of Date 06/04/2022 Noted Resolved Essential hypertension [I10] 12/14/2015 Recurrent major depression in partial remission*2015 Anxiety [F41.9] 12/14/2015 01/06/2021 Bipolar affective disorder, currently active (H*2015 History of alcohol abuse [F10.11] 01/18/2016 Chronic bronchitis (HCC) [J42] 07/26/2016 Hyperkalemia [E87.5] 07/27/2016 11/27/2018 Polycythemia [D75.1] 07/27/2016 11/27/2018 Spinal stenosis, lumbar region without neurogen*2018 Radiculopathy, lumbar region [M54.16] 12/01/2018 Smoker [F17.200] 03/13/2019 GERD (gastroesophageal reflux disease) [K21.9] 019 Primary osteoarthritis of right hip [M16.11] 9 10/06/2019 History of total right hip arthroplasty [Z96.64*201807/07/2020 Seasonal allergies [J30.2] 05/04/2019 Preop cardiovascular exam [Z01.810] 09/28/2019 019 Precordial pain, short lived, 3-5 minutes, none*201807/07/2020 PAD (peripheral artery disease) ([facility]) [I73.9] 09/28/20 19 Anxiety and depression [F41.9, F32.A] 10/06/2019 Hypomagnesemia [E83.42] 10/22/2019 10/23/2019 Asthma [J45.909] 07/07/2020 07/07/2020 Prediabetes [R73.03] 02/04/2021 Chest pain [R07.9] 05/08/2021 Other chest pain [R07.89] 05/08/2021 Stenosis of carotid artery [I65.29] 05/08/2021 Mixed hyperlipidemia [E78.2] 05/08/2021 Abnormal stress test [R94.39] 08/26/2021 Dyspnea on exertion [R06.09] 08/26/2021 Coronary artery disease involving [place] tribes tolbert*2020 Prescriptions ordered this encounter Disp Refills Star t End AEROCHAMBER MV SPACER 1 Ea* 0 06/04/2022 06/04/2022 Class: Print RX Route: Misc Si Device one time only for 1 dose. Encounter Status:Closed by NATALIE BLACKMAN MA on 06/04/22 CNPN on 05-31-2022 LINDAN Telephone (INTMWS) [facility] VINCE KOENIG ([id number]) 1955 [facility] Date Time Provider Department 05/31/22 ULISES HERMOSILLO INTMWS During your visit today, we recorded the following inf ormation about you: Christina Pete RN 05/31/2022 11:09 AM Signed Patient calls and is asking if provider can write orders for patient to have a smaller portable oxygen tank so it is easier for her t o go places. She gets current supplies from [facility]. Please review and advise, AAMIR Diego RN 06/01/2022 1:31 PM Signed Patient calls and is asking about a [facility] er for her inhalers. Patient asking if prescription can be sent for inhaler spacer? Pharmacy is [facility]. See Message below in regards to portable oxygen tank. Please review and advise, AAMIR Diego APRN.LINDA 06/01/2022 1:47 PM Signed She has an appointment with pulmonary medicine on 06/06 , she can discuss portable oxygen tank orders at that time. Please fax p rescription for spacer Oly Smith APRN.LINDA Blackman Ma 06/01/2022 3:00 PM Signed Order faxed - patient notified, verbalized stanley casillas. Natalie Mills RN 06/04/2022 9:57 AM Signed [facility] in [place] called in and report they onl y received the second page for the aerochamber spacer. Re-faxed the order to [phone]. Allergies As of Date: 05/31/2022 (No Known Allergies) Date Reviewed: 05/03/2022 Reviewed by: Tracy Ramires APRN.FISH HATCHERY WORKER - Fully Assesse d Reason for Visit: Orders [681] Primary Visit Diagnosis:Color Drum Worker azy bronchitis, unspecified chronic bronchitis type (HCC) [J42] Order(s):AEROCHAMBER SPACER [[id number]] Order #: [id number] Prescriptions as of 06/04/2022 - amLODIPine (NORVASC) 10 mg tablet TAKE 1 TABLET BY MOUTH EVERY DAY - budesonide-formoterol (SYMBICORT) 160-4.5 mcg/actuat ion inhaler Inhale 2 Puffs as instructed twice daily. - omeprazole (PRILOSEC) 40 mg capsule Take 1 capsule by mouth once daily. - traZODone (DESYREL) 100 mg tablet Take 2 tablets by mouth daily at bedtime. - lisinopril (ZESTRIL, PRINIVIL) 40 mg tablet Take 1 tablet by mouth once daily. - albuterol HFA (VENTOLIN HFA) 90 mcg/actuation inhale r Inhale 2 Puffs as instructed every 6 hours as needed f or wheezing/shortness of breath. - venlafaxine ER (EFFEXOR XR) 150 mg 24 hr capsule Take 1 capsule by mouth once daily. - isosorbide mononitrate ER (IMDUR) 30 mg 24 hr tablet TAKE 1 TABLET BY MOUTH EVERY DAY - carvedilol (COREG) 6.25 mg tablet TAKE 1 TABLET BY MOUTH TWICE A DAY - atorvastatin (LIPITOR) 80 mg tablet TAKE 1 TABLET BY MOUTH EVERY DAY - aspirin 81 mg chewable tablet Take 1 tablet by mouth once daily. - clopidogrel (PLAVIX) 75 mg tablet Take 1 tablet by mouth once daily. - clopidogrel (PLAVIX) 75 mg tablet Take 1 tablet by mouth once daily. Facility-Administered Medications as of 06/04/2022 - perflutren lipid microspheres 1.3 mL in NaCl (PF) 0. 9% 10 mL injection (DEFINITY) - sodium chloride 0.9 % (flush) 10 mL (BD POSIFLUSH) Problem List As Of Date 05/31/2022 Noted Resolved Essential hypertension [I10] 12/14/2015 Recurrent major depression in partial remission*2015 Anxiety [F41.9] 12/14/2015 01/06/2021 Bipolar affective disorder, currently active (H*2015 History of alcohol abuse [F10.11] 01/18/2016 Chronic bronchitis (HCC) [J42] 07/26/2016 Hyperkalemia [E87.5] 07/27/2016 11/27/2018 Polycythemia [D75.1] 07/27/2016 11/27/2018 Spinal stenosis, lumbar region without neurogen*2018 Radiculopathy, lumbar region [M54.16] 12/01/2018 Smoker [F17.200] 03/13/2019 GERD (gastroesophageal reflux disease) [K21.9] 019 Primary osteoarthritis of right hip [M16.11] 9 10/06/2019 History of total right hip arthroplasty [Z96.64*201807/07/2020 Seasonal allergies [J30.2] 05/04/2019 Preop cardiovascular exam [Z01.810] 09/28/2019 019 Precordial pain, short lived, 3-5 minutes, none*201807/07/2020 PAD (peripheral artery disease) ([facility]) [I73.9] 09/28/20 19 Anxiety and depression [F41.9, F32.A] 10/06/2019 Hypomagnesemia [E83.42] 10/22/2019 10/23/2019 Asthma [J45.909] 07/07/2020 07/07/2020 Prediabetes [R73.03] 02/04/2021 Chest pain [R07.9] 05/08/2021 Other chest pain [R07.89] 05/08/2021 Stenosis of carotid artery [I65.29] 05/08/2021 Mixed hyperlipidemia [E78.2] 05/08/2021 Abnormal stress test [R94.39] 08/26/2021 Dyspnea on exertion [R06.09] 08/26/2021 Coronary artery disease involving [place]*2020 Encounter Status:Closed by NATALIE BLACKMAN MA on 06/01/22 JEOVANNY on 05-23-2022 LINDAN Telephone (CAWSTR) [facility] VINCE KOENIG ([id number]) 1955 [facility] Time Provider Department 05/23/22 TRACY RAMIRES During your visit today, we recorded the following inf ormation about you: Shanelle Toribio RN 05/23/2022 4:51 PM Signed ----- Message from Tracy Ramires APRN.FISH HATCHERY WORKER sent at 7:41 AM EDT ----- Please call patient and notify her echocardiogram reve als stable LV function and no significant valve disease. Thank you! Shanelle Toribio RN 05/23/2022 4:53 PM Signed Attempted to call pt. No answer. Left message for pt. to return call. Please advise of below and close encounter when pt calls back . Thank you. Shanelle Toribio RN [facility] 05/24/2022 10:23 AM Signed Patient returned call and was notified. Allergies As of Date: 05/23/2022 (No Known Allergies) Date Reviewed: 05/03/2022 Reviewed by: Tracy Ramires APRN.LINDA - Fully Assesse d Reason for Visit: Results [95] Prescriptions as of 05/24/2022 - SYMBICORT 160-4.5 mcg/actuation inhaler Inhale 2 Puffs as instructed twice daily. - omeprazole (PRILOSEC) 40 mg capsule Take 1 capsule by mouth once daily. - traZODone (DESYREL) 100 mg tablet Take 2 tablets by mouth daily at bedtime. - lisinopril (ZESTRIL, PRINIVIL) 40 mg tablet Take 1 tablet by mouth once daily. - albuterol HFA (VENTOLIN HFA) 90 mcg/actuation inhale r Inhale 2 Puffs as instructed every 6 hours as needed f or wheezing/shortness of breath. - venlafaxine ER (EFFEXOR XR) 150 mg 24 hr capsule Take 1 capsule by mouth once daily. - isosorbide mononitrate ER (IMDUR) 30 mg 24 hr tablet TAKE 1 TABLET BY MOUTH EVERY DAY - carvedilol (COREG) 6.25 mg tablet TAKE 1 TABLET BY MOUTH TWICE A DAY - atorvastatin (LIPITOR) 80 mg tablet TAKE 1 TABLET BY MOUTH EVERY DAY - aspirin 81 mg chewable tablet Take 1 tablet by mouth once daily. - amLODIPine (NORVASC) 10 mg tablet TAKE 1 TABLET BY MOUTH EVERY DAY - clopidogrel (PLAVIX) 75 mg tablet Take 1 tablet by mouth once daily. - clopidogrel (PLAVIX) 75 mg tablet Take 1 tablet by mouth once daily. Facility-Administered Medications as of 05/24/2022 - perflutren lipid microspheres 1.3 mL in NaCl (PF) 0. 9% 10 mL injection (DEFINITY) - sodium chloride 0.9 % (flush) 10 mL (BD POSIFLUSH) Problem List As Of Date 05/23/2022 Noted Resolved Essential hypertension [I10] 12/14/2015 Recurrent major depression in partial remission*2015 Anxiety [F41.9] 12/14/2015 01/06/2021 Bipolar affective disorder, currently active (H*2015 History of alcohol abuse [F10.11] 01/18/2016 Chronic bronchitis (HCC) [J42] 07/26/2016 Hyperkalemia [E87.5] 07/27/2016 11/27/2018 Polycythemia [D75.1] 07/27/2016 11/27/2018 Spinal stenosis, lumbar region without neurogen*2018 Radiculopathy, lumbar region [M54.16] 12/01/2018 Smoker [F17.200] 03/13/2019 GERD (gastroesophageal reflux disease) [K21.9] 019 Primary osteoarthritis of right hip [M16.11] 9 10/06/2019 History of total right hip arthroplasty [Z96.64*201807/07/2020 Seasonal allergies [J30.2] 05/04/2019 Preop cardiovascular exam [Z01.810] 09/28/2019 019 Precordial pain, short lived, 3-5 minutes, none*201807/07/2020 PAD (peripheral artery disease) ([facility]) [I73.9] 09/28/20 19 Anxiety and depression [F41.9, F32.A] 10/06/2019 Hypomagnesemia [E83.42] 10/22/2019 10/23/2019 Asthma [J45.909] 07/07/2020 07/07/2020 Prediabetes [R73.03] 02/04/2021 Chest pain [R07.9] 05/08/2021 Other chest pain [R07.89] 05/08/2021 Stenosis of carotid artery [I65.29] 05/08/2021 Mixed hyperlipidemia [E78.2] 05/08/2021 Abnormal stress test [R94.39] 08/26/2021 Dyspnea on exertion [R06.09] 08/26/2021 Coronary artery disease involving [place]*2020 Encounter Status:Closed by MAGNUS TORRES on 05/24 CNOV on 05-21-2022 CNOV Office Visit (CARDWS) [facility] VINCE Burk ([id number]) 1955 [facility] Time Provider Department 05/21/22 3:30 PM ECHOCARDIOGRAM WSTR CARDWS During your visit today, we recorded the following inf ormation about you: Tracy Ramires, Z 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 05/22/2022 7:41 AM Signed Please call patient and notify her echocardiogram reve als stable LV function and no significant valve disease. Thank you! Referring Provider: TRACY RAMIRES [[id number]] Allergies As of Date: 05/21/2022 (No Known Allergies) Date Reviewed: 05/03/2022 Reviewed by: Tracy Ramires APRN.FISH HATCHERY WORKER - Fully Assesse d Visit Diagnosis:DIAZ (dyspnea on exertion) [R06.09] Order(s):ECHO [[id number]] Order #: [id number]. #:[id number] Prescriptions as of 05/23/2022 - SYMBICORT 160-4.5 mcg/actuation inhaler Inhale 2 Puffs as instructed twice daily. - omeprazole (PRILOSEC) 40 mg capsule Take 1 capsule by mouth once daily. - traZODone (DESYREL) 100 mg tablet Take 2 tablets by mouth daily at bedtime. - lisinopril (ZESTRIL, PRINIVIL) 40 mg tablet Take 1 tablet by mouth once daily. - albuterol HFA (VENTOLIN HFA) 90 mcg/actuation inhale r Inhale 2 Puffs as instructed every 6 hours as needed f or wheezing/shortness of breath. - venlafaxine ER (EFFEXOR XR) 150 mg 24 hr capsule Take 1 capsule by mouth once daily. - isosorbide mononitrate ER (IMDUR) 30 mg 24 hr tablet TAKE 1 TABLET BY MOUTH EVERY DAY - carvedilol (COREG) 6.25 mg tablet TAKE 1 TABLET BY MOUTH TWICE A DAY - atorvastatin (LIPITOR) 80 mg tablet TAKE 1 TABLET BY MOUTH EVERY DAY - aspirin 81 mg chewable tablet Take 1 tablet by mouth once daily. - amLODIPine (NORVASC) 10 mg tablet TAKE 1 TABLET BY MOUTH EVERY DAY - clopidogrel (PLAVIX) 75 mg tablet Take 1 tablet by mouth once daily. - clopidogrel (PLAVIX) 75 mg tablet Take 1 tablet by mouth once daily. Facility-Administered Medications as of 05/23/2022 - perflutren lipid microspheres 1.3 mL in NaCl (PF) 0. 9% 10 mL injection (DEFINITY) - sodium chloride 0.9 % (flush) 10 mL (BD POSIFLUSH) Problem List As Of Date 05/21/2022 Noted Resolved Essential hypertension [I10] 12/14/2015 Recurrent major depression in partial remission*2015 Anxiety [F41.9] 12/14/2015 01/06/2021 Bipolar affective disorder, currently active (H*2015 History of alcohol abuse [F10.11] 01/18/2016 Chronic bronchitis (HCC) [J42] 07/26/2016 Hyperkalemia [E87.5] 07/27/2016 11/27/2018 Polycythemia [D75.1] 07/27/2016 11/27/2018 Spinal stenosis, lumbar region without neurogen*2018 Radiculopathy, lumbar region [M54.16] 12/01/2018 Smoker [F17.200] 03/13/2019 GERD (gastroesophageal reflux disease) [K21.9] 019 Primary osteoarthritis of right hip [M16.11] 9 10/06/2019 History of total right hip arthroplasty [Z96.64*201807/07/2020 Seasonal allergies [J30.2] 05/04/2019 Preop cardiovascular exam [Z01.810] 09/28/2019 019 Precordial pain, short lived, 3-5 minutes, none*201807/07/2020 PAD (peripheral artery disease) (HCC) [I73.9] 09/28/20 19 Anxiety and depression [F41.9, F32.A] 10/06/2019 Hypomagnesemia [E83.42] 10/22/2019 10/23/2019 Asthma [J45.909] 07/07/2020 07/07/2020 Prediabetes [R73.03] 02/04/2021 Chest pain [R07.9] 05/08/2021 Other chest pain [R07.89] 05/08/2021 Stenosis of carotid artery [I65.29] 05/08/2021 Mixed hyperlipidemia [E78.2] 05/08/2021 Abnormal stress test [R94.39] 08/26/2021 Dyspnea on exertion [R06.09] 08/26/2021 Coronary artery disease involving [place] tolbert*2020 Encounter Status:Closed by TRACY RAMIRES on 05/23/22 ECHO on 05-21-2022 Echocardiography Echocardiography Report: Transthoracic Echo Normal [facility] [place] of [place]: 05/21/2022 3:26:24 PM [place] [employer] Ordering physician: TRACY RAMIRES Indication: Shortness of Breath Technologist: Christina Thompson [facility] Interpreting physician: Zaid Tinsley DO PATIENT: Name: MRS. VINCE KOENIG : 1955 Age: 67 years Gender: F History of hypertension, dyslipidemia and coronary art thomas disease. Previous cardiovascular interventions: PCI Primary rhythm: sinus. Height: 165.10 cm BSA: 1.63 m? Weight: 57.61 kg BMI: 21.1 kg/m? Heart rate 78 bpm Technically difficult exam due to body habitus and ART GILDER D/SOB. Color Doppler was utilized t o interrogate the cardiac valves assessed and spectral Doppler was utilized to determine the flow velocities and pressure gradients reported in this exam. MEASUREMENTS: Value Indexed Normal Max aortic dimension 2.8 cm Ao < 3.8 LV ID (diastole) 5.1 cm (2D) 3.12 cm/m? LV ID (systole) 3.5 cm (2D) 2.13 cm/m? IVS, leaflet tips 1.0 cm (2D) Posterior wall thickness 0.9 cm (2D) Left ventricular mass 179 g (2D) 110 g/m? LV stroke volume 33 ml (2D 4-ch.) LV end diastolic volume 55 ml (2D 4-ch.) 33.8 ml/m? 29 <=EDVi<62 LV end systolic volume 22 ml (2D 4-ch.) 13.8 ml/m? Ejection Fraction 59 % (2D 4-ch.) EF > 54 FINDINGS: LEFT VENTRICLE The left ventricle is normal in size. Left ventricular systolic function is normal. Grade I left ventricular diastolic dysfunction. Mitral annular lateral E/e': 7.1. Mitral annular septa l E/e': 7.1. Wall Motion: All scored segments are normal. RIGHT VENTRICLE The right ventricle is normal in size. Right ventricular systolic f unction is normal. RV systolic tissue Doppler velocity is 10.0 cm/s. Estimated right ventricular systolic pressure is not reported due to an insufficient tricuspid regurgitation signal. Estimated right atrial pressure is 3 mmHg (although IVC not seen). LEFT ATRIUM Unable to reliably measure LA volume due to technical limitations. RIGHT ATRIUM Unable to reliably measure RA volume due to technical limitations. Inferior Vena Cava: The inferior vena cava appears normal measuring 1.9 cm . MITRAL VALVE The mitral valve leaflets ar e structurally normal. There is trace (trace - 1+) mitral valve regurgitation. The pressure half time is 55 msec. The peak mitral E/A ratio is 0.80. The average mitral E/e' r atio is 7.1. The mitral flow deceleration time is 190 msec. TRICUSPID VALVE The tricuspid valve leaflets are structurally normal. There is trace tricuspid valve regurgitation. AORTIC VALVE The aortic valve cusps are s tructurally normal. There is no aortic valve regurgitation. The peak gradient is 8 mmHg (peak velocity = 138.1 cm/s). PULMONIC VALVE The pulmonic valve cusps are structurally normal. There is no pulmonic valve regurgitation. AORTA The visualized aorta is normal in size. Measurements - Mid ascending aorta 2.8 cm. PERICARDIUM There is no pericardial effusion. There is an epicardi al fat pad. CONCLUSIONS: - Technically difficult exam due to body habitus and C OPD/SOB. - Exam indication: Shortness of Breath - The left ventricle is norm al in size. Left ventricular systolic function is normal. EF = 59 ? 5% (2D 4-ch.) Grade I left ventricular diastolic dysfunction. - The right ventricle is nor mal in size. Right ventricular systolic function is normal. - There are no significant valvular abnormalities. - There are no significant valvular abnormalities. - The patient has not had a prior CC echocardiographic exam for comparison. Electronically signed by Zaid Tinsley DO on 09/2022 at 4:02:06 PM * * * Final * * * CC [employer] age : [id number] [facility] CNOV on 05-11-2022 CNOV Office Visit (INTMWS) Normal [facility] VINCE KOENIG ([id number]) 1955 [facility] Date Time Provider Department 05/11/22 1:40 PM ULISES HERMOSILLO During your visit today, we recorded the following inf ormation about you: Pulse Respiration Blood pressure Weight 99/minute 24/minute 118/78 58.1 kg Ulises Hermosillo MD 05/11/2022 3:49 PM Signed This note was created using [employer] Subjective Patient presents with: Hospital Follow Up Vince Koenig is a 66 year old female. She was adm itted 05/02-05/05? For COPD exacerbation. Only ER report was available. She f inished Cefdinir and prednisone. She claimed she was discharged on home oxy gen, but she had no oxygen today. She was better but not back to baseline. She continued to smoke. She was concerned about recurring blockage to he r right leg, due to recurrent ache and tingling. Review of Systems Constitutional: Negative. Respiratory: Positive for cough, shortness of breath a nd wheezing. Cardiovascular: Negative for chest pain, palpitations and leg swelling. Gastrointestinal: Negative. Genitourinary: Negative. Neurological: Negative for weakness. Right leg ache, tingling. ACTIVE PROBLEM LIST Essential Hypertension Recurrent Major Depression in Partial Remission ([facility]) Bipolar Affective Disorder, Currently Active ([facility]) History of Alcohol Abuse Chronic bronchitis ([facility]) Spinal Stenosis, Lumbar Region Without Neurogenic Jannette dication Radiculopathy, Lumbar Region Smoker Gerd (Gastroesophageal Reflux Disease) Seasonal Allergies Pad (Peripheral Artery Disease) ([facility]) Anxiety and Depression Prediabetes Chest Pain Other Chest Pain Stenosis of Carotid Artery Mixed Hyperlipidemia Abnormal Stress Test Dyspnea On Exertion Coronary Artery Disease Involving [place] 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 - omeprazole (PRILOSEC) 40 mg capsule Take 1 capsule b y mouth once daily. - traZODone (DESYREL) 100 mg tablet Take 2 table ts by mouth daily at bedtime. - lisinopril (ZESTRIL, PRINIVIL) 40 mg tablet Take 1 t ablet by mouth once daily. - albuterol HFA (VENTOLIN HFA) 90 mcg/actuation inhale r Inhale 2 Puffs as instructed every 6 hours as needed for wheezing/shortn ess of breath. - venlafaxine ER (EFFEXOR XR ) 150 mg 24 hr capsule Take 1 capsule by mouth once daily. - isosorbide mononitrate ER (IMDUR) 30 mg 24 hr tablet TAKE 1 TABLET BY MOUTH EVERY DAY - carvedilol (COREG) 6.25 mg tablet TAKE 1 TABLET BY M OUTH TWICE A DAY - atorvastatin (LIPITOR) 80 mg tablet TAKE 1 TABLET BY MOUTH EVERY DAY - aspirin 81 mg chewable tablet Take 1 tablet by mouth once daily. - amLODIPine (NORVASC) 10 mg tablet TAKE 1 TABLET BY M OUTH EVERY DAY - clopidogrel (PLAVIX) 75 mg tablet Take 1 tablet by m outh once daily. - clopidogrel (PLAVIX) 75 mg tablet Take 1 tablet by m outh once daily. Current Facility-Administered Medications Medication Dose Route Frequency - perflutren lipid microspheres 1.3 mL in NaCl (PF) 0. 9% 10 mL injection (DEFINITY) INTRAVENOUS DIRECTED PRN - sodium chloride 0.9 % (flush) 10 mL (BD POSIFLUSH) 1 0 mL INTRAVENOUS DIRECTED PRN Objective BP 118/78 Pulse 99 Resp 24 Wt 58.1 kg (128 lb) LMP (LMP Unknown) SpO2 95% BMI 21.30 kg/m? Physical Exam Constitutional: General: She is not in acute distress. Appearance: She is not diaphoretic. Cardiovascular: Rate and Rhythm: Normal rate and regular rhythm. Pulses: Decreased pulses. Heart sounds: No murmur heard. No gallop. Pulmonary: Breath sounds: Normal breath sounds. No wheezing or ra les. Abdominal: Palpations: Abdomen is soft. Tenderness: There is no abdominal tenderness. Musculoskeletal: General: No tenderness. Right lower leg: No edema. Left lower leg: No edema. Neurological: Mental Status: She is alert. Sensory: No sensory deficit. Motor: No weakness. Gait: Gait normal. Assessment and Plan ASSESSMENT/PLAN: 1. Chronic bronchitis, unspe cified chronic bronchitis type (HCC) - ICD9: 491.9, ICD10: J42 (primary diagnosis) Hypoxemia? Home Oxygen? Keep pulmonary follow up as sc heduled. 2. 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 Continue medication. Call for refill. 3. Gastroesophageal reflux disease, unspecified whether esophagitis present - ICD9: 530.81, ICD10: K21.9 Controlled. - OMEPRAZOLE 40 MG CAPSULE,DELAYED RELEASE 4. Need (more content not included)... .Auto Diff on 05-05-2022 Basophil, Absolute 0.0 10 3/mcL Normal 0.0-0.3 [facility] ([place]) Comment on above: Performed By: #### Gustavo PRUETT, CMP, PBNP #### [address] [address] Basophils/100 WBC (Bld) 0.1 % Normal 0.0-2.5 [facility] ([place]) Comment on above: Performed By: #### Gustavo PRUETT, CMP, PBNP #### [address] [address] Eosinophil, Absolute 0.0 10 3/mcL Normal 0.0-0.7 [facility] ([place]) Comment on above: Performed By: #### Gustavo PRUETT, CMP, PBNP #### [address] [address] Eosinophils/100 WBC (Bld) 0.0 % Normal 0.0-6.0 [facility] ([place]) Comment on above: Performed By: #### Gustavo PRUETT, CMP, PBNP #### [address] [address] Lymphocyte, Absolute 0.6 10 3/mcL Low 0.9-4.3 [facility] ([place]) Comment on above: Performed By: #### FLYNN G FR, CMP, PBNP #### [address] [address] Lymphocytes/100 WBC (Bld) 5.1 % Low 20.0-40.0 [facility] ([place]) Comment on above: Performed By: #### FLYNN G FR, CMP, PBNP #### [address] [address] Monocyte, Absolute 0.3 10 3/mcL Normal 0.1-1.4 [facility] ([place]) Comment on above: Performed By: #### TROPHS G FR, CMP, PBNP #### [address] [address] Monocytes/100 WBC (Bld) 2.4 % Normal 2.0-13.0 [facility] ([place]) Comment on above: Performed By: #### FLYNN G FR, CMP, PBNP #### [address] [address] Neutrophils/100 WBC (Bld) 92.4 % High 50.0-75.0 [facility] ([place]) Comment on above: Performed By: #### FLYNN G FR, CMP, PBNP #### [address] [address] .GFR on 05-05-2022 GFR >60 Normal [facility] ([place]) Comment on above: Result Comment: GFR Population mean for Afri can Portuguese, Non- Americans Ages 20-29 = 116 mL/min/1.73 sq.m. Ages 30-39 = 107 mL/min/1.73 sq.m. Ages 40-49 = 99 mL/min/1.73 sq.m. Ages 50-59 = 93 mL/min/1.73 sq.m. Ages 60-69 = 85 mL/min/1.73 sq.m. Ages 70+ = 75 mL/min/1.73 sq .m. Chronic Kidney Disease: Less than 60 mL/min/1.73 square meters End Stage Renal Disease: Les s than 15 mL/min/1.73 square meters Performed By: #### TROPHS G FR, CMP, PBNP #### [address] [address] GFR Non- >60 Normal [facility] ([place]) Comment on above: Result Comment: GFR Population mean for Afri can Portuguese, Non- Americans Ages 20-29 = 116 mL/min/1.73 sq.m. Ages 30-39 = 107 mL/min/1.73 sq.m. Ages 40-49 = 99 mL/min/1.73 sq.m. Ages 50-59 = 93 mL/min/1.73 sq.m. Ages 60-69 = 85 mL/min/1.73 sq.m. Ages 70+ = 75 mL/min/1.73 sq .m. Chronic Kidney Disease: Less than 60 mL/min/1.73 square meters End Stage Renal Disease: Les s than 15 mL/min/1.73 square meters Performed By: #### FLYNN G FR, CMP, PBNP #### [address] [address] .MDW on 05-05-2022 Monocyte Distribution Width Not performed Normal 0.00-20.00 [facility] ([place]) Comment on above: Result Comment: MDW testing performed only on adult ER patients between the ages of 18-89 ye ars. Performed By: #### JOSE JS G FR, CMP, PBNP #### [address] [address] .NEUABS on 05-05-2022 Neutrophil, Absolute 10.8 10 3/mcL High 2.3-8.1 [facility] ([place]) Comment on above: Performed By: #### JOSE JS, G FR, CMP, PBNP #### [address] [address] BMP on 05-05-2022 BUN/Creatinine Ratio 29.6 ratio High 10.0-22.0 [facility] ([place]) Comment on above: Performed By: #### JOSE JS, G FR, CMP, PBNP #### [address] [address] Calcium [Mass/Vol] 8.5 mg/dL Low 8.7-10.4 [facility] ([place]) Comment on above: Performed By: #### Gustavo PRUETT, CMP, PBNP #### [address] [address] Chloride [Moles/Vol] 106 mmol/L Normal 98-110 [facility] ([place]) Comment on above: Performed By: #### Gustavo PRUETT, CMP, PBNP #### [address] [address] CO2 [Moles/Vol] 32 mmol/L Normal 22-32 [facility] ([place]) Comment on above: Performed By: #### Gustavo PRUETT, CMP, PBNP #### [address] [address] Creatinine [Mass/Vol] 0.71 mg/dL Normal 0.50-1.20 [facility] ([place]) Comment on above: Performed By: #### Gustavo PRUETT, CMP, PBNP #### [address] [address] Electrolyte Balance 3.0 mEq/L Low 4.0-15.0 [facility] ([place]) Comment on above: Performed By: #### Gustavo PRUETT, CMP, PBNP #### [address] [address] Glucose [Mass/Vol] 224 mg/dL High 82-115 [facility] ([place]) Comment on above: Performed By: #### Gustavo PRUETT, CMP, PBNP #### [address] [address] Potassium [Moles/Vol] 4.5 mmol/L Normal 3.5-5.0 [facility] ([place]) Comment on above: Performed By: #### Gustavo PRUETT, CMP, PBNP #### [address] [address] Sodium [Moles/Vol] 141 mmol/L Normal 136-145 [facility] ([place]) Comment on above: Performed By: #### FLYNN, G FR, CMP, PBNP #### [address] [address] Urea nitrogen [Mass/Vol] 21.0 mg/dL Normal 8.0-22.0 [facility] ([place]) Comment on above: Performed By: #### JOSE JS G FR, CMP, PBNP #### [address] [address] CBC on 05-05-2022 Erythrocyte distribution width 16.5 % High 11.5-15.5 [facility] ([place]) (RBC) [Ratio] Comment on above: Performed By: #### FLYNN G FR, CMP, PBNP #### [address] [address] Hematocrit (Bld) [Volume 38.3 % Normal 34.0-46.0 [facility] ([place]) fraction] Comment on above: Performed By: #### JOSE JS G FR, CMP, PBNP #### [address] [address] Hgb 12.2 G/dL Normal 12.0-16.0 [facility] ([place]) Comment on above: Performed By: #### JOSE JS G FR, CMP, PBNP #### [address] [address] MCH (RBC) [Entitic mass] 30.9 pg Normal 27.0-33.0 [facility] ([place] Comment on above: Performed By: #### TROPHS, G FR, CMP, PBNP #### [address] [address] MCHC 32.0 G/dL Normal 32.0-36.0 [facility] ([place]) Comment on above: Performed By: #### TROPHS G FR, CMP, PBNP #### [address] [address] MCV (RBC) [Entitic vol] 96.7 fL Normal 80.0-99.0 [facility] ([place]) Comment on above: Performed By: #### TROPHS, G FR, CMP, PBNP #### [address] [place], [place] [address] Platelet 285 10 3/mcL Normal 150-450 [facility] ([place]) Comment on above: Performed By: #### TROPHS, G FR, CMP, PBNP #### [address] [place], [place] [address] Platelet mean volume (Bld) 8.9 fL Normal 6.6-10.5 [facility] ([place]) [Entitic vol] Comment on above: Performed By: #### JOSE JS, G FR, CMP, PBNP #### [address] [address] RBC 3.96 10 6/mcL Low 4.10-5.30 [facility] ([place]) Comment on above: Performed By: #### TROPHS, G FR, CMP, PBNP #### [address] [address] WBC 11.6 10 3/mcL High 4.5-10.8 [facility] ([place]) Comment on above: Performed By: #### TROPHS, G FR, CMP, PBNP #### [address] [address] LABORATORY Ordered By: SYSTEM SYSTEM on 05-05-2022 Basophils (Bld) 0.0 103/mcL Invalid 0.0 - 0.3 Workflow SS [#/Vol] Interpretation Code 10^3/mcL Basophils/100 WBC 0.1 % Invalid 0.0 - 2.5 % Workflo w SS (Bld) Interpretation Code Calcium [Mass/Vol] 8.5 mg/dL Invalid 8.7 - 10.4 ADM SS Interpretation Code mg/dL Chloride 106 mmol/L Invalid 98 - 110 mEq/L ADM SS [Moles/Vol] Interpretation Code CO2 [Moles/Vol] 32 mmol/L Invalid 22 - 32 mEq/L ADM SS Interpretation Code Creatinine 0.71 mg/dL Invalid 0.50 - 1.20 ADM SS [Mass/Vol] Interpretation Code mg/dL Electrolyte Balance 3.0 mEq/L Invalid 4.0 - 15.0 ADM S S Interpretation Code mEq/L Eosinophils (Bld) 0.0 103/mcL Invalid 0.0 - 0.7 AH Workflo w SS [#/Vol] Interpretation Code 10^3/mcL Eosinophils/100 WBC 0.0 % Invalid 0.0 - 6.0 % AH Workf low SS (Bld) Interpretation Code Erythrocyte 16.5 % Invalid 11.5 - 15.5 % Workflow SS distribution width Interpretation Code (RBC) [Ratio] GFR/1.73 sq ml/min/1.73sqm Invalid Chemistry S M.predicted among Interpretation Code blacks MDRD (S/P/Bld) [Vol rate/Area] GFR/1.73 sq ml/min/1.73sqm Invalid Chemistry S M.predicted among Interpretation Code non-blacks MDRD (S/P/Bld) [Vol rate/Area] Glucose [Mass/Vol] 224 mg/dL Invalid 82 - 115 mg/dL ADM SS Interpretation Code Hematocrit (Bld) 38.3 % Invalid 34.0 - 46.0 % Workflo w SS [Volume fraction] Interpretation Code Hemoglobin (Bld) 12.2 G/dL Invalid 12.0 - 16.0 Workflow SS [Mass/Vol] Interpretation Code G/dL Lymphocytes (Bld) 0.6 103/mcL Invalid 0.9 - 4.3 Workflo w SS [#/Vol] Interpretation Code 10^3/mcL Lymphocytes/100 WBC 5.1 % Invalid 20.0 - 40.0 % AH Work flow SS (Bld) Interpretation Code MCH (RBC) [Entitic 30.9 pg Invalid 27.0 - 33.0 pg AH Work flow SS mass] Interpretation Code MCHC 32.0 G/dL Invalid 32.0 - 36.0 Workflow SS Interpretation Code G/dL MCV (RBC) [Entitic 96.7 fL Invalid 80.0 - 99.0 fL AH Work flow SS vol] Interpretation Code Monocyte Not Performed 1 Invalid 0.00 - 20.00 Hematolog y S distribution width *NA* Interpretation Code Auto (Bld) [Entitic (05/05/22 6:59 AM) vol] Comment on above: Result Comment: MDW testing performed only on adult ER patients between the ages of 18-89 ye ars. Monocytes (Bld) 0.3 103/mcL Invalid Interpretation 0.1 - 1.4 Workflow SS [#/Vol] Code 10^3/mcL Monocytes/100 WBC 2.4 % Invalid Interpretation 2.0 - 13.0 % Workflow SS (Bld) Code Neutrophils (Bld) 10.8 103/mcL Invalid Interpretation 2.3 - 8.1 AH Workflow SS [#/Vol] Code 10^3/mcL Neutrophils/100 WBC 92.4 % Invalid Interpretation 50.0 - 75.0 % Workflow SS (Bld) Code Platelet mean 8.9 fL Invalid Interpretation 6.6 - 10.5 fL Workflow SS volume (Bld) Code [Entitic vol] Platelets (Bld) 285 103/mcL Invalid Interpretation 150 - 450 AH Workflow SS [#/Vol] Code 10^3/mcL Potassium 4.5 mmol/L Invalid Interpretation 3.5 - 5.0 mEq/L AH ADM SS [Moles/Vol] Code RBC (Bld) [#/Vol] 3.96 106/mcL Invalid Interpretation 4.10 - 5.30 Workflow SS Code 10^6/mcL Sodium [Moles/Vol] 141 mmol/L Invalid Interpretation 136 - 145 mE q/L AH ADM SS Code Urea nitrogen 21.0 mg/dL Invalid Interpretation 8.0 - 22.0 mg/dL AH ADM SS [Mass/Vol] Code Urea 29.6 ratio Invalid Interpretation 10.0 - 22.0 AD M SS nitrogen/Creatinine Code ratio [Mass ratio] WBC 11.6 103/mcL Invalid Interpretation 4.5 - 10.8 Wo rkflow SS Code 10^3/mcL .Auto Diff on 05-04-2022 Basophil, Absolute 0.0 10 3/mcL Normal 0.0-0.3 [facility] ([place]) Comment on above: Performed By: #### JOSE JS, G FR, CMP, PBNP #### [address] [place], [place] [address] Basophils/100 WBC (Bld) 0.2 % Normal 0.0-2.5 [facility] ([place]) Comment on above: Performed By: #### TROPHS, G FR, CMP, PBNP #### [address] [place], [place] [address] Eosinophil, Absolute 0.0 10 3/mcL Normal 0.0-0.7 [facility] ([place]) Comment on above: Performed By: #### TROPHS, G FR, CMP, PBNP #### [address] [address] Eosinophils/100 WBC (Bld) 0.0 % Normal 0.0-6.0 [facility] ([place]) Comment on above: Performed By: #### TROPHS, G FR, CMP, PBNP #### [address] [address] Lymphocyte, Absolute 0.6 10 3/mcL Low 0.9-4.3 [facility] ([place]) Comment on above: Performed By: #### TROPHS, G FR, CMP, PBNP #### [address] [address] Lymphocytes/100 WBC (Bld) 5.0 % Low 20.0-40.0 [facility] ([place]) Comment on above: Performed By: #### TROPHS, G FR, CMP, PBNP #### [address] [address] Monocyte, Absolute 0.3 10 3/mcL Normal 0.1-1.4 [facility] ([place]) Comment on above: Performed By: #### TROPHS, G FR, CMP, PBNP #### [address] [address] Monocytes/100 WBC (Bld) 2.4 % Normal 2.0-13.0 [facility] ([place]) Comment on above: Performed By: #### TROPHS, G FR, CMP, PBNP #### [address] [address] Neutrophils/100 WBC (Bld) 92.4 % High 50.0-75.0 [facility] ([place]) Comment on above: Performed By: #### TROPHS, G FR, CMP, PBNP #### [address] [address] .GFR on 05-04-2022 GFR >60 Normal [facility] ([place]) Comment on above: Result Comment: GFR Population mean for Afri can Portuguese, Non- Americans Ages 20-29 = 116 mL/min/1.73 sq.m. Ages 30-39 = 107 mL/min/1.73 sq.m. Ages 40-49 = 99 mL/min/1.73 sq.m. Ages 50-59 = 93 mL/min/1.73 sq.m. Ages 60-69 = 85 mL/min/1.73 sq.m. Ages 70+ = 75 mL/min/1.73 sq .m. Chronic Kidney Disease: Less than 60 mL/min/1.73 square meters End Stage Renal Disease: Les s than 15 mL/min/1.73 square meters Performed By: #### FLYNN G FR, CMP, PBNP #### [address] [address] GFR Non- >60 Normal [facility] ([place]) Comment on above: Result Comment: GFR Population mean for Afri can Portuguese, Non- Americans Ages 20-29 = 116 mL/min/1.73 sq.m. Ages 30-39 = 107 mL/min/1.73 sq.m. Ages 40-49 = 99 mL/min/1.73 sq.m. Ages 50-59 = 93 mL/min/1.73 sq.m. Ages 60-69 = 85 mL/min/1.73 sq.m. Ages 70+ = 75 mL/min/1.73 sq .m. Chronic Kidney Disease: Less than 60 mL/min/1.73 square meters End Stage Renal Disease: Les s than 15 mL/min/1.73 square meters Performed By: #### TROPHS, G FR, CMP, PBNP #### [address] [address] .MDW on 05-04-2022 Monocyte Distribution Width Not performed Normal 0.00-20.00 [facility] ([place]) Comment on above: Result Comment: MDW testing performed only on adult ER patients between the ages of 18-89 ye ars. Performed By: #### TROPHS, G FR, CMP, PBNP #### [address] [address] .NEUABS on 05-04-2022 Neutrophil, Absolute 10.5 10 3/mcL High 2.3-8.1 [facility] ([place]) Comment on above: Performed By: #### FLYNN G FR, CMP, PBNP #### [address] [address] BMP on 05-04-2022 BUN/Creatinine Ratio 24.7 ratio High 10.0-22.0 [facility] ([place]) Comment on above: Performed By: #### JOSE JS G FR, CMP, PBNP #### [address] [address] Calcium [Mass/Vol] 8.7 mg/dL Normal 8.7-10.4 [facility] ([place]) Comment on above: Performed By: #### JOSE JS G FR, CMP, PBNP #### [address] [address] Chloride [Moles/Vol] 108 mmol/L Normal 98-110 [facility] ([place]) Comment on above: Performed By: #### JOSE JS G FR, CMP, PBNP #### [address] [address] CO2 [Moles/Vol] 30 mmol/L Normal 22-32 [facility] ([place]) Comment on above: Performed By: #### TROPHS, G FR, CMP, PBNP #### [address] [address] Creatinine [Mass/Vol] 0.85 mg/dL Normal 0.50-1.20 [facility] ([place]) Comment on above: Performed By: #### TROPHS, G FR, CMP, PBNP #### [address] [address] Electrolyte Balance 3.0 mEq/L Low 4.0-15.0 [facility] ([place]) Comment on above: Performed By: #### TROPHS, G FR, CMP, PBNP #### [address] [address] Glucose [Mass/Vol] 150 mg/dL High 82-115 [facility] ([place]) Comment on above: Performed By: #### Gustavo PRUETT, CMP, PBNP #### [address] [address] Potassium [Moles/Vol] 4.8 mmol/L Normal 3.5-5.0 [facility] ([place]) Comment on above: Performed By: #### Gustavo PRUETT, CMP, PBNP #### [address] [address] Sodium [Moles/Vol] 141 mmol/L Normal 136-145 [facility] ([place]) Comment on above: Performed By: #### Gustavo PRUETT, CMP, PBNP #### [address] [address] Urea nitrogen [Mass/Vol] 21.0 mg/dL Normal 8.0-22.0 l [facility] ([place]) Comment on above: Performed By: #### Gustavo PRUETT, CMP, PBNP #### [address] [address] CBC on 05-04-2022 Erythrocyte distribution width 16.6 % High 11.5-15.5 [facility] ([place]) (RBC) [Ratio] Comment on above: Performed By: #### FLYNN G FR, CMP, PBNP #### [address] [address] Hematocrit (Bld) [Volume 39.9 % Normal 34.0-46.0 l [facility] ([place]) fraction] Comment on above: Performed By: #### FLYNN G FR, CMP, PBNP #### [address] [address] Hgb 12.8 G/dL Normal 12.0-16.0 [facility] ([place]) Comment on above: Performed By: #### JOSE JS G FR, CMP, PBNP #### [address] [address] MCH (RBC) [Entitic mass] 30.8 pg Normal 27.0-33.0 [facility] ([place]) Comment on above: Performed By: #### Gustavo PRUETT, CMP, PBNP #### [address] [address] MCHC 32.0 G/dL Normal 32.0-36.0 [facility] ([place]) Comment on above: Performed By: #### Gustavo PRUETT, CMP, PBNP #### [address] [address] MCV (RBC) [Entitic vol] 96.4 fL Normal 80.0-99.0 [facility] ([place]) Comment on above: Performed By: #### Gustavo PRUETT, CMP, PBNP #### [address] [address] Platelet 282 10 3/mcL Normal 150-450 [facility] ([place]) Comment on above: Performed By: #### Gustavo PRUETT, CMP, PBNP #### [address] [address] Platelet mean volume (Bld) 8.9 fL Normal 6.6-10.5 A [facility] ([place]) [Entitic vol] Comment on above: Performed By: #### Gustavo PRUETT, CMP, PBNP #### [address] [address] RBC 4.14 10 6/mcL Normal 4.10-5.30 [facility] ([place]) Comment on above: Performed By: #### Gustavo PRUETT FR, CMP, PBNP #### [address] [address] WBC 11.4 10 3/mcL High 4.5-10.8 [facility] ([place]) Comment on above: Performed By: #### Gustavo PRUETT FR, CMP, PBNP #### [address] [address] LABORATORY Ordered By: SYSTEM SYSTEM on 05-04-2022 Basophils (Bld) 0.0 103/mcL Invalid 0.0 - 0.3 AH Workflow SS [#/Vol] Interpretation Code 10^3/mcL Basophils/100 WBC 0.2 % Invalid 0.0 - 2.5 % Workflo w SS (Bld) Interpretation Code Calcium [Mass/Vol] 8.7 mg/dL Invalid 8.7 - 10.4 ADM SS Interpretation Code mg/dL Chloride 108 mmol/L Invalid 98 - 110 mEq/L ADM SS [Moles/Vol] Interpretation Code CO2 [Moles/Vol] 30 mmol/L Invalid 22 - 32 mEq/L ADM SS Interpretation Code Creatinine 0.85 mg/dL Invalid 0.50 - 1.20 ADM SS [Mass/Vol] Interpretation Code mg/dL Electrolyte Balance 3.0 mEq/L Invalid 4.0 - 15.0 ADM S S Interpretation Code mEq/L Eosinophils (Bld) 0.0 103/mcL Invalid 0.0 - 0.7 Workflo w SS [#/Vol] Interpretation Code 10^3/mcL Eosinophils/100 WBC 0.0 % Invalid 0.0 - 6.0 % Workf low SS (Bld) Interpretation Code Erythrocyte 16.6 % Invalid 11.5 - 15.5 % Workflow SS distribution width Interpretation Code (RBC) [Ratio] GFR/1.73 sq ml/min/1.73sqm Invalid Chemistry S M.predicted among Interpretation Code blacks MDRD (S/P/Bld) [Vol rate/Area] GFR/1.73 sq ml/min/1.73sqm Invalid Chemistry S M.predicted among Interpretation Code non-blacks MDRD (S/P/Bld) [Vol rate/Area] Glucose [Mass/Vol] 150 mg/dL Invalid 82 - 115 mg/dL ADM SS Interpretation Code Hematocrit (Bld) 39.9 % Invalid 34.0 - 46.0 % Workflo w SS [Volume fraction] Interpretation Code Hemoglobin (Bld) 12.8 G/dL Invalid 12.0 - 16.0 Workflow SS [Mass/Vol] Interpretation Code G/dL Lymphocytes (Bld) 0.6 103/mcL Invalid 0.9 - 4.3 Workflo w SS [#/Vol] Interpretation Code 10^3/mcL Lymphocytes/100 WBC 5.0 % Invalid 20.0 - 40.0 % Work flow SS (Bld) Interpretation Code MCH (RBC) [Entitic 30.8 pg Invalid 27.0 - 33.0 pg AH Work flow SS mass] Interpretation Code MCHC 32.0 G/dL Invalid 32.0 - 36.0 AH Workflow SS Interpretation Code G/dL MCV (RBC) [Entitic 96.4 fL Invalid 80.0 - 99.0 fL AH Work flow SS vol] Interpretation Code Monocyte Not Performed 2 Invalid 0.00 - 20.00 AH Hematolog y S distribution width *NA* Interpretation Code Auto (Bld) [Entitic (05/04/22 6:15 AM) vol] Comment on above: Result Comment: MDW testing performed only on adult ER patients between the ages of 18-89 ye ars. Monocytes (Bld) 0.3 103/mcL Invalid Interpretation 0.1 - 1.4 Workflow SS [#/Vol] Code 10^3/mcL Monocytes/100 WBC 2.4 % Invalid Interpretation 2.0 - 13.0 % Workflow SS (Bld) Code Neutrophils (Bld) 10.5 103/mcL Invalid Interpretation 2.3 - 8.1 Workflow SS [#/Vol] Code 10^3/mcL Neutrophils/100 WBC 92.4 % Invalid Interpretation 50.0 - 75.0 % Workflow SS (Bld) Code Platelet mean 8.9 fL Invalid Interpretation 6.6 - 10.5 fL Workflow SS volume (Bld) Code [Entitic vol] Platelets (Bld) 282 103/mcL Invalid Interpretation 150 - 450 Workflow SS [#/Vol] Code 10^3/mcL Potassium 4.8 mmol/L Invalid Interpretation 3.5 - 5.0 mEq/L ADM SS [Moles/Vol] Code RBC (Bld) [#/Vol] 4.14 106/mcL Invalid Interpretation 4.10 - 5.30 Workflow SS Code 10^6/mcL Sodium [Moles/Vol] 141 mmol/L Invalid Interpretation 136 - 145 mE q/L AH ADM SS Code Urea nitrogen 21.0 mg/dL Invalid Interpretation 8.0 - 22.0 mg/dL ADM SS [Mass/Vol] Code Urea 24.7 ratio Invalid Interpretation 10.0 - 22.0 AD M SS nitrogen/Creatinine Code ratio [Mass ratio] WBC 11.4 103/mcL Invalid Interpretation 4.5 - 10.8 Wo rkflow SS Code 10^3/mcL .Auto Diff on 05-03-2022 Basophil, Absolute 0.1 10 3/mcL Normal 0.0-0.3 [facility] ([place]) Comment on above: Performed By: #### TROPHS, G FR, CMP, PBNP #### [address] [address] Basophils/100 WBC (Bld) 0.7 % Normal 0.0-2.5 [facility] ([place]) Comment on above: Performed By: #### TROPHS, G FR, CMP, PBNP #### [address] [address] Eosinophil, Absolute 0.0 10 3/mcL Normal 0.0-0.7 [facility] ([place]) Comment on above: Performed By: #### TROPHS, G FR, CMP, PBNP #### [address] [address] Eosinophils/100 WBC (Bld) 0.3 % Normal 0.0-6.0 [facility] ([place]) Comment on above: Performed By: #### TROPHS, G FR, CMP, PBNP #### [address] [address] Lymphocyte, Absolute 2.3 10 3/mcL Normal 0.9-4.3 [facility] ([place]) Comment on above: Performed By: #### TROPHS, G FR, CMP, PBNP #### [address] [address] Lymphocytes/100 WBC (Bld) 25.2 % Normal 20.0-40.0 [facility] ([place]) Comment on above: Performed By: #### TROPHS, G FR, CMP, PBNP #### [address] [address] Monocyte, Absolute 1.0 10 3/mcL Normal 0.1-1.4 [facility] ([place]) Comment on above: Performed By: #### TROPHS, G FR, CMP, PBNP #### [address] [address] Monocytes/100 WBC (Bld) 10.8 % Normal 2.0-13.0 [facility] ([place]) Comment on above: Performed By: #### Gustavo PRUETT, CMP, PBNP #### [address] [address] Neutrophils/100 WBC (Bld) 63.0 % Normal 50.0-75.0 [facility] ([place]) Comment on above: Performed By: #### Gustavo PRUETT, CMP, PBNP #### [address] [address] .GFR on 05-03-2022 GFR Non- >60 Normal [facility] ([place]) Comment on above: Result Comment: GFR Population mean for Afri can Portuguese, Non- Americans Ages 20-29 = 116 mL/min/1.73 sq.m. Ages 30-39 = 107 mL/min/1.73 sq.m. Ages 40-49 = 99 mL/min/1.73 sq.m. Ages 50-59 = 93 mL/min/1.73 sq.m. Ages 60-69 = 85 mL/min/1.73 sq.m. Ages 70+ = 75 mL/min/1.73 sq .m. Chronic Kidney Disease: Less than 60 mL/min/1.73 square meters End Stage Renal Disease: Les s than 15 mL/min/1.73 square meters Performed By: #### Gustavo PRUETT, CMP, PBNP #### [address] [address] GFR >60 Normal [facility] ([place]) Comment on above: Result Comment: GFR Population mean for Afri can Portuguese, Non- Americans Ages 20-29 = 116 mL/min/1.73 sq.m. Ages 30-39 = 107 mL/min/1.73 sq.m. Ages 40-49 = 99 mL/min/1.73 sq.m. Ages 50-59 = 93 mL/min/1.73 sq.m. Ages 60-69 = 85 mL/min/1.73 sq.m. Ages 70+ = 75 mL/min/1.73 sq .m. Chronic Kidney Disease: Less than 60 mL/min/1.73 square meters End Stage Renal Disease: Les s than 15 mL/min/1.73 square meters Performed By: #### TROPHS, G FR, CMP, PBNP #### [address] [address] .MDW on 05-03-2022 Monocyte Distribution Width Not performed Normal 0.00-20.00 [facility] ([place]) Comment on above: Result Comment: MDW testing performed only on adult ER patients between the ages of 18-89 ye ars. Performed By: #### TROPHS G FR, CMP, PBNP #### [address] [address] .NEUABS on 05-03-2022 Neutrophil, Absolute 5.6 10 3/mcL Normal 2.3-8.1 [facility] ([place]) Comment on above: Performed By: #### FLYNN G FR, CMP, PBNP #### [address] [address] BMP on 05-03-2022 BUN/Creatinine Ratio 17.9 ratio Normal 10.0-22.0 [facility] ([place]) Comment on above: Performed By: #### JOSE JS G FR, CMP, PBNP #### [address] [address] Calcium [Mass/Vol] 8.7 mg/dL Normal 8.7-10.4 [facility] ([place]) Comment on above: Performed By: #### TROPHS, G FR, CMP, PBNP #### [address] [address] Chloride [Moles/Vol] 110 mmol/L Normal 98-110 [facility] ([place]) Comment on above: Performed By: #### TROPHS, G FR, CMP, PBNP #### [address] [address] CO2 [Moles/Vol] 28 mmol/L Normal 22-32 [facility] ([place]) Comment on above: Performed By: #### TROPHS, G FR, CMP, PBNP #### [address] [address] Creatinine [Mass/Vol] 0.84 mg/dL Normal 0.50-1.20 [facility] ([place]) Comment on above: Performed By: #### Gustavo PRUETT, CMP, PBNP #### [address] [address] Electrolyte Balance 6.0 mEq/L Normal 4.0-15.0 [facility] ([place]) Comment on above: Performed By: #### Gustavo PRUETT, CMP, PBNP #### [address] [address] Glucose [Mass/Vol] 96 mg/dL Normal 82-115 [facility] ([place]) Comment on above: Performed By: #### Gustavo RPUETT, CMP, PBNP #### [address] [address] Potassium [Moles/Vol] 4.5 mmol/L Normal 3.5-5.0 [facility] ([place]) Comment on above: Performed By: #### Gustavo PRUETT, CMP, PBNP #### [address] [address] Sodium [Moles/Vol] 144 mmol/L Normal 136-145 [facility] ([place]) Comment on above: Performed By: #### Gustavo PRUETT, CMP, PBNP #### [address] [address] Urea nitrogen [Mass/Vol] 15.0 mg/dL Normal 8.0-22.0 [facility] ([place]) Comment on above: Performed By: #### Gustavo PRUETT, CMP, PBNP #### [address] [address] CBC on 05-03-2022 Erythrocyte distribution width 16.3 % High 11.5-15.5 [facility] ([place]) (RBC) [Ratio] Comment on above: Performed By: #### Gustavo PRUETT, CMP, PBNP #### [address] [address] Hematocrit (Bld) [Volume 40.5 % Normal 34.0-46.0 [facility] ([place] fraction] Comment on above: Performed By: #### TROPHS, G FR, CMP, PBNP #### [address] [address] Hgb 13.2 G/dL Normal 12.0-16.0 [facility] ([place]) Comment on above: Performed By: #### TROPHS, G FR, CMP, PBNP #### [address] [address] MCH (RBC) [Entitic mass] 31.4 pg Normal 27.0-33.0 [facility] ([place] Comment on above: Performed By: #### TROPHS, G FR, CMP, PBNP #### [address] [address] MCHC 32.6 G/dL Normal 32.0-36.0 [facility] ([place]) Comment on above: Performed By: #### TROPHS, G FR, CMP, PBNP #### [address] [address] MCV (RBC) [Entitic vol] 96.1 fL Normal 80.0-99.0 [facility] ([place]) Comment on above: Performed By: #### TROPHS, G FR, CMP, PBNP #### [address] [address] Platelet 290 10 3/mcL Normal 150-450 [facility] ([place]) Comment on above: Performed By: #### TROPHS, G FR, CMP, PBNP #### [address] [address] Platelet mean volume (Bld) 8.9 fL Normal 6.6-10.5 [facility] ([place]) [Entitic vol] Comment on above: Performed By: #### TROPHS, G FR, CMP, PBNP #### [address] [address] RBC 4.21 10 6/mcL Normal 4.10-5.30 [facility] ([place]) Comment on above: Performed By: #### TROPHS, G FR, CMP, PBNP #### [address] [place], [place] [address] WBC 8.9 10 3/mcL Normal 4.5-10.8 [facility] ([place]) Comment on above: Performed By: #### TROPHS, G FR, CMP, PBNP #### [address] [place], [place] [address] LABORATORY Ordered By: SYSTEM SYSTEM on 05-03-2022 Basophils (Bld) 0.1 103/mcL Invalid 0.0 - 0.3 Workflow SS [#/Vol] Interpretation Code 10^3/mcL Basophils/100 WBC 0.7 % Invalid 0.0 - 2.5 % Workflo w SS (Bld) Interpretation Code Calcium [Mass/Vol] 8.7 mg/dL Invalid 8.7 - 10.4 ADM SS Interpretation Code mg/dL Chloride 110 mmol/L Invalid 98 - 110 mEq/L ADM SS [Moles/Vol] Interpretation Code CO2 [Moles/Vol] 28 mmol/L Invalid 22 - 32 mEq/L ADM SS Interpretation Code Creatinine 0.84 mg/dL Invalid 0.50 - 1.20 AH ADM SS [Mass/Vol] Interpretation Code mg/dL Electrolyte Balance 6.0 mEq/L Invalid 4.0 - 15.0 ADM S S Interpretation Code mEq/L Eosinophils (Bld) 0.0 103/mcL Invalid 0.0 - 0.7 Workflo w SS [#/Vol] Interpretation Code 10^3/mcL Eosinophils/100 WBC 0.3 % Invalid 0.0 - 6.0 % Workf low SS (Bld) Interpretation Code Erythrocyte 16.3 % Invalid 11.5 - 15.5 % Workflow SS distribution width Interpretation Code (RBC) [Ratio] GFR/1.73 sq ml/min/1.73sqm Invalid Chemistry S M.predicted among Interpretation Code blacks MDRD (S/P/Bld) [Vol rate/Area] GFR/1.73 sq ml/min/1.73sqm Invalid Chemistry S M.predicted among Interpretation Code non-blacks MDRD (S/P/Bld) [Vol rate/Area] Glucose [Mass/Vol] 96 mg/dL Invalid 82 - 115 mg/dL AH ADM SS Interpretation Code Hematocrit (Bld) 40.5 % Invalid 34.0 - 46.0 % AH Workflo w SS [Volume fraction] Interpretation Code Hemoglobin (Bld) 13.2 G/dL Invalid 12.0 - 16.0 AH Workflow SS [Mass/Vol] Interpretation Code G/dL Lymphocytes (Bld) 2.3 103/mcL Invalid 0.9 - 4.3 AH Workflo w SS [#/Vol] Interpretation Code 10^3/mcL Lymphocytes/100 WBC 25.2 % Invalid 20.0 - 40.0 % AH Work flow SS (Bld) Interpretation Code Magnesium 1.8 mg/dL Invalid 1.6 - 2.4 AH ADM SS [Mass/Vol] Interpretation Code mg/dL MCH (RBC) [Entitic 31.4 pg Invalid 27.0 - 33.0 pg AH Work flow SS mass] Interpretation Code MCHC 32.6 G/dL Invalid 32.0 - 36.0 AH Workflow SS Interpretation Code G/dL MCV (RBC) [Entitic 96.1 fL Invalid 80.0 - 99.0 fL AH Work flow SS vol] Interpretation Code Monocyte Not Performed 3 Invalid 0.00 - 20.00 Hematolog y S distribution width *NA* Interpretation Code Auto (Bld) [Entitic (05/03/22 5:52 AM) vol] Comment on above: Result Comment: MDW testing performed only on adult ER patients between the ages of 18-89 ye ars. Monocytes (Bld) 1.0 103/mcL Invalid Interpretation 0.1 - 1.4 AH Workflow SS [#/Vol] Code 10^3/mcL Monocytes/100 WBC 10.8 % Invalid Interpretation 2.0 - 13.0 % AH Workflow SS (Bld) Code Neutrophils (Bld) 5.6 103/mcL Invalid Interpretation 2.3 - 8.1 AH Workflow SS [#/Vol] Code 10^3/mcL Neutrophils/100 WBC 63.0 % Invalid Interpretation 50.0 - 75.0 % Workflow SS (Bld) Code Platelet mean 8.9 fL Invalid Interpretation 6.6 - 10.5 fL AH Workflow SS volume (Bld) Code [Entitic vol] Platelets (Bld) 290 103/mcL Invalid Interpretation 150 - 450 AH Workflow SS [#/Vol] Code 10^3/mcL Potassium 4.5 mmol/L Invalid Interpretation 3.5 - 5.0 mEq/L ADM SS [Moles/Vol] Code RBC (Bld) [#/Vol] 4.21 106/mcL Invalid Interpretation 4.10 - 5.30 Workflow SS Code 10^6/mcL Sodium [Moles/Vol] 144 mmol/L Invalid Interpretation 136 - 145 mE q/L ADM SS Code Urea nitrogen 15.0 mg/dL Invalid Interpretation 8.0 - 22.0 mg/dL ADM SS [Mass/Vol] Code Urea 17.9 ratio Invalid Interpretation 10.0 - 22.0 AD M SS nitrogen/Creatinine Code ratio [Mass ratio] WBC 8.9 103/mcL Invalid Interpretation 4.5 - 10.8 Wo rkflow SS Code 10^3/mcL MG on 05-03-2022 Magnesium [Mass/Vol] 1.8 mg/dL Normal 1.6-2.4 [facility] ([place]) Comment on above: Performed By: #### Gustavo PRUETT, CMP, PBNP #### [address] [address] .Auto Diff on 05-02-2022 Basophil, Absolute 0.1 10 3/mcL Normal 0.0-0.2 [facility] ([place]) Comment on above: Performed By: #### Gustavo PRUETT, CMP, PBNP #### [address] [address] Basophils/100 WBC (Bld) 0.9 % Normal 0.0-2.5 [facility] ([place]) Comment on above: Performed By: #### Gustavo PRUETT, CMP, PBNP #### [address] [address] Eosinophil, Absolute 0.1 10 3/mcL Normal 0.0-0.4 [facility] ([place] Comment on above: Performed By: #### Gustavo PRUETT, CMP, PBNP #### [address] [address] Eosinophils/100 WBC (Bld) 0.8 % Normal 0.0-7.0 [facility] ([place]) Comment on above: Performed By: #### TROPHS, G FR, CMP, PBNP #### [address] [address] Lymphocyte, Absolute 2.1 10 3/mcL Normal 0.8-3.9 [facility] ([place] Comment on above: Performed By: #### TROPHS, G FR, CMP, PBNP #### [address] [address] Lymphocytes/100 WBC (Bld) 16.7 % Normal 10.0-50.0 [facility] ([place]) Comment on above: Performed By: #### TROPHS, G FR, CMP, PBNP #### [address] [address] Monocyte, Absolute 0.9 10 3/mcL Normal 0.2-1.0 [facility] ([place]) Comment on above: Performed By: #### TROPHS, G FR, CMP, PBNP #### [address] [address] Monocytes/100 WBC (Bld) 7.0 % Normal 1.7-13.0 [facility] ([place] Comment on above: Performed By: #### TROPHS, G FR, CMP, PBNP #### [address] [address] Neutrophils/100 WBC (Bld) 74.6 % Normal 37.0-80.0 [facility] ([place]) Comment on above: Performed By: #### TROPHS, G FR, CMP, PBNP #### [address] [address] .GFR on 05-02-2022 GFR 61 ml/min/1.73sqm Normal [facility] ([place]) Comment on above: Result Comment: GFR Population mean for Afri can Portuguese, Non- Americans Ages 20-29 = 116 mL/min/1.73 sq.m. Ages 30-39 = 107 mL/min/1.73 sq.m. Ages 40-49 = 99 mL/min/1.73 sq.m. Ages 50-59 = 93 mL/min/1.73 sq.m. Ages 60-69 = 85 mL/min/1.73 sq.m. Ages 70+ = 75 mL/min/1.73 sq .m. Chronic Kidney Disease: Less than 60 mL/min/1.73 square meters End Stage Renal Disease: Les s than 15 mL/min/1.73 square meters Performed By: #### TROPHS, G FR, CMP, PBNP #### [address] [address] GFR Non- 50 ml/min/1.73sqm Normal [facility] ([place]) Comment on above: Result Comment: GFR Population mean for Afri can Portuguese, Non- Americans Ages 20-29 = 116 mL/min/1.73 sq.m. Ages 30-39 = 107 mL/min/1.73 sq.m. Ages 40-49 = 99 mL/min/1.73 sq.m. Ages 50-59 = 93 mL/min/1.73 sq.m. Ages 60-69 = 85 mL/min/1.73 sq.m. Ages 70+ = 75 mL/min/1.73 sq .m. Chronic Kidney Disease: Less than 60 mL/min/1.73 square meters End Stage Renal Disease: Les s than 15 mL/min/1.73 square meters Performed By: #### TROPHS, G FR, CMP, PBNP #### [address] [address] .MDW on 05-02-2022 Monocyte Distribution Width 17.05 Normal 0.00-20.00 [facility] ([place] Comment on above: Result Comment: For ED adult patients suspected of sepsis, MDW<=20.0 does not rule out sepsis or risk of sepsis Performed By: #### TROPHS, G FR, CMP, PBNP #### [address] [place] [address] .NEUABS on 05-02-2022 Neutrophil, Absolute 9.4 10 3/mcL High 2.9-6.2 [facility] ([place] Comment on above: Performed By: #### TROPHS, G FR, CMP, PBNP #### [id number] BMP on 05-02-2022 BUN/Creatinine Ratio 9 ratio Normal 7-27 [facility] ([place] Comment on above: Performed By: #### FLYNN G FR, CMP, PBNP #### [address] [address] Calcium [Mass/Vol] 8.8 mg/dL Normal 8.4-10.2 [facility] ([place] Comment on above: Performed By: #### TROPHS G FR, CMP, PBNP #### [address] [address] Chloride [Moles/Vol] 102 mmol/L Normal 98-107 [facility] ([place] Comment on above: Performed By: #### TROPHS, G FR, CMP, PBNP #### [address] [address] CO2 [Moles/Vol] 29 mmol/L Normal 23-31 [facility] ([place] Comment on above: Performed By: #### TROPHS, G FR, CMP, PBNP #### [address] [address] Creatinine [Mass/Vol] 1.09 mg/dL High 0.55-1.02 [facility] ([place] Comment on above: Performed By: #### TROPHS, G FR, CMP, PBNP #### [address] [address] Electrolyte Balance 7.0 mEq/L Normal 4.0-15.0 [facility] ([place] Comment on above: Performed By: #### TROPHS, G FR, CMP, PBNP #### [address] [address] Glucose [Mass/Vol] 194 mg/dL High 80-115 [facility] ([place] Comment on above: Performed By: #### TROPHS, G FR, CMP, PBNP #### [address] [address] Potassium [Moles/Vol] 4.1 mmol/L Normal 3.5-5.1 [facility] ([place] Comment on above: Performed By: #### JOSE JS, G FR, CMP, PBNP #### [address] [address] Sodium [Moles/Vol] 138 mmol/L Normal 136-145 [facility] ([place] Comment on above: Performed By: #### TROPHS, G FR, CMP, PBNP #### [address] [address] Urea nitrogen [Mass/Vol] 10 mg/dL Normal 7-18 [facility] ([place] Comment on above: Performed By: #### TROPHS G FR, CMP, PBNP #### [address] [address] CBC on 05-02-2022 Erythrocyte distribution width 17.0 % High 11.5-14.5 [facility] ([place]) (RBC) [Ratio] Comment on above: Performed By: #### JOSE JS, G FR, CMP, PBNP #### [address] [address] Hematocrit (Bld) [Volume 45.4 % Normal 37.0-47.0 [facility] ([place] fraction] Comment on above: Performed By: #### TROPHS, G FR, CMP, PBNP #### [address] [address] Hgb 14.9 G/dL Normal 12.0-16.0 [facility] ([place] Comment on above: Performed By: #### TROPHS, G FR, CMP, PBNP #### [address] [address] MCH (RBC) [Entitic mass] 31.4 pg High 27.0-31.2 [facility] ([place] Comment on above: Performed By: #### TROPHS, G FR, CMP, PBNP #### [address] [address] MCHC 32.9 G/dL Low 33.0-37.0 [facility] ([place] Comment on above: Performed By: #### Gustavo PRUETT FR, CMP, PBNP #### [address] [address] MCV (RBC) [Entitic vol] 95.5 fL High 80.0-94.0 [facility] ([place] Comment on above: Performed By: #### FLYNN G FR, CMP, PBNP #### [address] [address] Platelet 351 10 3/mcL Normal 130-400 [facility] ([place] Comment on above: Performed By: #### Gustavo PRUETT FR, CMP, PBNP #### [address] [address] Platelet mean volume (Bld) 9.0 fL Normal 7.4-10.4 [facility] ([place]) [Entitic vol] Comment on above: Performed By: #### Gustavo PRUETT FR, CMP, PBNP #### [address] [address] RBC 4.76 10 6/mcL Normal 4.20-5.40 [facility] ([place] Comment on above: Performed By: #### Gustavo PRUETT FR, CMP, PBNP #### [address] [address] WBC 12.6 10 3/mcL High 4.6-10.8 [facility] ([place] Comment on above: Performed By: #### FLYNN G FR, CMP, PBNP #### [address] [address] COVD19 on 05-02-2022 Date of Onset [id number] Invalid Interpretation Code [facility] ([place] Comment on above: Performed By: #### FLYNN G FR, CMP, PBNP #### [address] [address] Employed in Healthcare No Normal [facility] ([place] Comment on above: Performed By: #### FLYNN G FR, CMP, PBNP #### [address] [address] First Test No [facility] ([place] Comment on above: Performed By: #### TROPHS, G FR, CMP, PBNP #### [place] [address] Hospitalized Yes [facility] ([place] Comment on above: Performed By: #### TROPHS, G FR, CMP, PBNP #### [place] [address] ICU No [facility] ([place] Comment on above: Performed By: #### TROPHS, G FR, CMP, PBNP #### [place] [address] Not [facility] ([place] Comment on above: Performed By: #### TROPHS, G FR, CMP, PBNP #### [address] [place] [address] Resides in Congregate Care Setting No [facility] ([place] Comment on above: Performed By: #### TROPHS, G FR, CMP, PBNP #### [place] [address] SARS-CoV-2 (COVID-19) RNA Negative Normal Negative [facility]) IVANA+probe Ql (Unsp spec) Comment on above: Performed By: #### TROPHS, G FR, CMP, PBNP #### [place] [address] SARS-CoV-2 (COVID-19) RNA IVANA+probe Ql [facility]) (Unsp spec) Comment on above: Result Comment: Negative res ults do not preclude SARS-CoV-2 infection and should not be used as the sole basis for patient management decisions. Negative results must be combined with clinical observati ons, patient history, and ep idemiological information. There is a risk of false neg ative values resulting from improperly collected, transported, or handled specimens. There is a risk of false neg ative values due to the presence of sequence variants in the pathogen targets of the assay, procedural errors, amplification inhibitors in specimens, or inadequate numbers of organisms for amplification. RUFUS SARS-CoV-2 Assay is a Real-Time reverse-transcriptase polymerase chain reaction (RT-PCR) based qualitative in vitro diagnostic test intended for the qualitative detection of nucleic acid from the SARS-CoV-2 in nasopharyngeal swab specimens collected from individuals suspected of COVID-19 by their healthcare provider. Testing is limited to laboratories certified under the Clinical Laboratory Impr ovement Amendments of 1988 ( CLIA), 42 U.S.C. ?263a, to perform moderate and high complexity tests. COVID-19 Int Performed By: #### Gustavo PRUETT, GENE, PBNP #### [facility] [address] [place], [place] [address] Symptomatic as Defined by [facility] Yes Normal [facility] ([place]) Comment on above: Performed By: #### Gustavo PRUETT, GENE, PBNP #### [facility] [address] [place], [place] [address] LABORATORY Ordered By: Gina klein on 05-02-2022 Blood Glucose Routine [facility] Testing Reason (05/02/22 9:38 AM) Work Steven ne: Glucose 156 mg/dL Invalid Interpretation 82 - 115 [facility] [Mass/Vol] Code mg/dL Work Phone: LABORATORY Ordered By: Glenda brown on 05-02-2022 ADMITTED TO INTENSIVE CARE UNIT FOR No Invalid AO Auto CONDITION OF (05/02/22 4:25 AM) Interpretation Code Uri ne SS INTEREST:FIND:PT:^PATIENT:ORD: EMPLOYED IN A HEALTHCARE No Invalid AO Auto SETTING:FIND:PT:^PATIENT:ORD: (05/02/22 4:25 AM) Interpretation Code Urine SS FIRST TEST FOR CONDITION OF No Invalid AO Auto INTEREST:FIND:PT:^PATIENT:ORD: (05/02/22 4:25 AM) Interpretation Cod e Urine SS HAS SYMPTOMS RELATED TO CONDITION Yes Invalid AO Auto OF INTEREST:FIND:PT:^PATIENT:ORD: (05/02/22 4:25 AM) Interpretation Code Urine SS Illness or injury onset date and [id number] Invalid AO Auto time Interpretation Code Urine SS Patient was hospitalized because of Yes Invalid AO Auto this condition (05/02/22 4:25 AM) Interpretation Code U rine SS status Not Invalid AO Auto (05/02/22 4:25 AM) Interpretation Code Uri ne SS RESIDES IN A CONGREGATE CARE No Invalid AO Auto SETTING:FIND:PT:^PATIENT:ORD: (05/02/22 4:25 AM) Interpretation Code Urine SS SARS-CoV-2 (COVID-19) RNA IVANA+probe Negative results do Invalid AO Auto Ql (Unsp spec) not preclude Interpretation Code Urine SS SARS-CoV-2 infection and should not be used as the sole basis for patient management decisions. Negative results must be combined with clinical observations, patient history, and epidemiological information.There is a risk of false negative values resulting from improperly collected, transported, or handled specimens.There is a risk of false negative values due to the presence of sequence variants in the pathogen targets of the assay, procedural errors, amplification inhibitors in specimens, or inadequate numbers of organisms for amplification.RUFUS SARS-CoV-2 Assay is a Real-Time reverse-transcriptas e polymerase chain reaction (RT-PCR) based qualitative in vitro diagnostic test intended for the qualitative detection of nucleic acid from the SARS-CoV-2 in nasopharyngeal swab specimens collected from individuals suspected of COVID-19 by their healthcare provider. Testing is limited to laboratories certified under the Clinical Laboratory Improvement Amendments of 1988 (CLIA), 42 U.S.C. 263a, to perform moderate and high complexity tests. LABORATORY Ordered By: Mely Manuel on 05-02-2022 Basophil, Absolute 0.1 103/mcL Invalid Interpretation 0.0 - 0.2 AO Workflow SS Code 10^3/mcL Basophils/100 WBC 0.9 % Invalid Interpretation 0.0 - 2.5 % AO Workflow SS (Bld) Code Calcium [Mass/Vol] 8.8 mg/dL Invalid Interpretation 8.4 - 10.2 m g/dL AO ADM SS Code Chloride [Moles/Vol] 102 mmol/L Invalid Interpretation 98 - 107 m mol/L AO ADM SS Code CO2 [Moles/Vol] 29 mmol/L Invalid Interpretation 23 - 31 mmol/L AO ADM SS Code Creatinine 1.09 mg/dL Invalid Interpretation 0.55 - 1.02 AO AD M SS [Mass/Vol] Code mg/dL Electrolyte Balance 7.0 mEq/L Invalid Interpretation 4.0 - 15.0 mEq/L AO ADM SS Code Eosinophil, Absolute 0.1 103/mcL Invalid Interpretation 0.0 - 0.4 AO Workflow SS Code 10^3/mcL Eosinophils/100 WBC 0.8 % Invalid Interpretation 0.0 - 7.0 % AO Workflow SS (Bld) Code Erythrocyte 17.0 % Invalid Interpretation 11.5 - 14.5 % AO W orkflow SS distribution width Code (RBC) [Ratio] Glucose [Mass/Vol] 194 mg/dL Invalid Interpretation 80 - 115 mg/ dL AO ADM SS Code Hematocrit (Bld) 45.4 % Invalid Interpretation 37.0 - 47.0 % AO Workflow SS [Volume fraction] Code Hemoglobin (Bld) 14.9 G/dL Invalid Interpretation 12.0 - 16.0 G/ dL AO Workflow SS [Mass/Vol] Code Lymphocyte, Absolute 2.1 103/mcL Invalid Interpretation 0.8 - 3.9 AO Workflow SS Code 10^3/mcL Lymphocytes/100 WBC 16.7 % Invalid Interpretation 10.0 - 50.0 % AO Workflow SS (Bld) Code MCH (RBC) [Entitic 31.4 pg Invalid Interpretation 27.0 - 31.2 pg AO Workflow SS mass] Code MCHC 32.9 G/dL Invalid Interpretation 33.0 - 37.0 G/dL A O Workflow SS Code MCV (RBC) [Entitic 95.5 fL Invalid Interpretation 80.0 - 94.0 fL AO Workflow SS vol] Code Monocyte 17.05 Invalid Interpretation 0.00 - 20.00 AO Wo rkflow SS distribution width Code Auto (Bld) [Entitic vol] Comment on above: Result Comment: For ED adult patients suspected of sepsis, MDW<=20.0 does not rule out sepsis or risk of sepsis Monocyte, Absolute 0.9 103/mcL Invalid Interpretation 0.2 - 1.0 AO Workflow SS Code 10^3/mcL Monocytes/100 WBC 7.0 % Invalid Interpretation 1.7 - 13.0 % AO Workflow SS (Bld) Code Natriuretic 344 pg/mL Invalid Interpretation 0 - 125 pg/mL AO A DM SS peptide.B Code prohormone N-Terminal [Mass/Vol] Neutrophil, 9.4 103/mcL Invalid Interpretation 2.9 - 6.2 AO Wo rkflow SS Absolute Code 10^3/mcL Neutrophils/100 WBC 74.6 % Invalid Interpretation 37.0 - 80.0 % AO Workflow SS (Bld) Code Platelet mean 9.0 fL Invalid Interpretation 7.4 - 10.4 fL AO Workflow SS volume (Bld) Code [Entitic vol] Platelets (Bld) 351 103/mcL Invalid Interpretation 130 - 400 AO Workflow SS [#/Vol] Code 10^3/mcL Potassium 4.1 mmol/L Invalid Interpretation 3.5 - 5.1 mmol/L A O ADM SS [Moles/Vol] Code RBC (Bld) [#/Vol] 4.76 106/mcL Invalid Interpretation 4.20 - 5.40 AO Workflow SS Code 10^6/mcL Sodium [Moles/Vol] 138 mmol/L Invalid Interpretation 136 - 145 mm ol/L AO ADM SS Code Troponin I.cardiac 13.0 ng/L Invalid Interpretation 0.0 - 51.4 n g/L AO ADM SS DL <= 0.01 ng/mL Code [Mass/Vol] Urea nitrogen 10 mg/dL Invalid Interpretation 7 - 18 mg/dL AO A DM SS [Mass/Vol] Code Urea 9 ratio Invalid Interpretation 7 - 27 ratio AO AD M SS nitrogen/Creatinine Code [Mass ratio] WBC 12.6 103/mcL Invalid Interpretation 4.6 - 10.8 AO Wo rkflow SS Code 10^3/mcL LABORATORY Ordered By: SYSTEM SYSTEM on 05-02-2022 GFR 61 ml/min/1.73sqm Invalid Interpretation Code AO Chemistry S GFR Non- 50 ml/min/1.73sqm Invalid Interpretation Code AO Chemistry S Portuguese PBNP on 05-02-2022 Natriuretic peptide B (Bld) 344 pg/mL High 0-125 [facility] ([place]) [Mass/Vol] Comment on above: Result Comment: NT-proBNP re sults of less than 300 pg/mL effectively rules out acute congestive h eart failure with 99% negative predictive value. Performed By: #### FLYNN G FR, CMP, PBNP #### [address] [address] TROPHS on 05-02-2022 Troponin I High Sensitivity 13.0 ng/L Normal 0.0-51.4 [facility] ([place]) Comment on above: Performed By: #### FLYNN G FR, CMP, PBNP #### [id number] [place], [place] [address] XR CHEST 1 VIEW on 05-02-2022 XR CHEST 1 VIEW ORIGINAL Normal [facility] EXAMINATION: ([place]) ONE XRAY VIEW OF THE CHEST 05/02/2022 3:24 am COMPARISON: CT chest 08/05/2012, chest x-ray 08/04/2012, 4, 10/11/2011 HISTORY: ORDERING SYSTEM PROVIDED HISTORY: Reason for Exam: Dyspnea FINDINGS: The cardiomediastinal silhouette is unremarkable. Aort ic calcifications are noted. No pneumothorax or pleural effusion. No consolidation. Prominence of right infrahilar vasculature appears similar to prior exam f rom 09/11/2011. No significant vascular congestion. No acute osseous abnormality. Postsurgical changes of lower cervical spine. IMPRESSION: No acute radiographic process. I have personally reviewed the images of this examinat ion and agree with the resident's findings and interpretation. Interpreted by: Adarsh Oglesby MD Preliminary Report By: Stephenie Farfan Electronically signed By Adarsh Oglesby MD Dictated Date: 05/02/2022 3:39:49 AM Prelim Date: 05/02/2022 3:43:08 AM Sign Date: 05/02/2022 5:25:03 AM Ordering Provider: EMMANUEL ALMONTE on 04-30-2022 SUZY Office Visit ([facility]) [facility] VINCE KOENIG ([id number]) 1955 [facility] Date Time Provider Department 04/30/22 4:00 PM TRACY RAMIRESWSTR During your visit today, we recorded the following inf ormation about you: Pulse Blood pressure Weight 83/minute 138/75 57.6 kg Tracy Ramires APRN.LINDA 05/03/2022 2:36 PM Signed Chief Complaint Patient presents with: 6 month check increased SOB History of Present Illness: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 prevention optimal non HDL Cholesterol levels are recommended to be <100 mg/dL Performed By: #### LIPB #### [facility] CLIA [id number] [address] [place] Cholesterol.total/Cholesterol in HDL 2.70 {ratio} Normal <5.1 0 [facility] Comment on above: Order Comment: Specimen Type : BLOOD SPECIMEN Performed By: #### LIPB #### [facility] CLIA [id number] [address] FASTING TIME 12 hrs Normal [facility] Comment on above: Order Comment: Specimen Type : BLOOD SPECIMEN Performed By: #### LIPB #### [facility] CLIA [id number] [address] Triglyceride [Mass/Vol] 88 mg/dL Normal <150 [facility] Comment on above: Order Comment: Specimen Type : BLOOD SPECIMEN Result Comment: <150 mg/dL, Normal 150-199 mg/dL, Borderline hi gh 200-499 mg/dL, High >499 mg/dL, Very high Performed By: #### LIPB #### [facility] CLIA [id number] [address] CNPN on 09-01-2021 LINDAN Telephone (AKPRAD) Normal [facility] VINCE KOENIG ([id number]) 1955 F Medical Date Time Provider Department Center 09/01/21 TRACY RAMIRES During your visit today, we recorded the following inf ormation about you: Tracy Ramires APRN.CNP 09/01/2021 11:37 AM Signed Had a heart cath with PCI. Please arrange office follo w up in 2-4 weeks. Thank you, ANGELICA Sin RN 09/08/2021 11:13 AM Signed NOV 09/27/21 with MELISSA Holland RN Allergies As of Date: 09/01/2021 (No Known Allergies) Date Reviewed: 08/31/2021 Reviewed by: Babatunde Lomeli MD - Fully Assessed Reason for Visit: Appointment [186] Prescriptions as of 09/08/2021 - venlafaxine ER (EFFEXOR XR) 150 mg 24 hr capsule Take 1 capsule by mouth once daily. - oxyCODONE-acetaminophen (PERCOCET) 5-325 mg tablet Take 1 tablet by mouth every 8 hours as needed. Patient has a fractured elbow and due to cardiac reasons cannot have surgery a t this time, and will require greater than 30 MEDD to treat chronic pain (ICD-10 cod e G89.18). - lisinopril (ZESTRIL, PRINIVIL) 40 mg tablet Take 1 tablet by mouth once daily. - amLODIPine (NORVASC) 10 mg tablet TAKE 1 TABLET BY MOUTH EVERY DAY - varenicline (CHANTIX STARTING MONTH BOX) 0.5 mg (11) - 1 mg (42) tablet Take 0.5 mg by mouth once daily on Days 1 through 3, T HEN 0.5 mg twice daily on Days 4 through 7, THEN 1 mg twice daily on Day 8 an d thereafter - traZODone (DESYREL) 100 mg tablet Take 2 tablets by mouth daily at bedtime. - loratadine (CLARITIN) 10 mg tablet Take 1 tablet by mouth once daily. - omeprazole (PRILOSEC) 40 mg capsule Take 1 capsule by mouth once daily. - atorvastatin (LIPITOR) 40 mg tablet Take 1 tablet by mouth once daily. - albuterol HFA (VENTOLIN HFA) 90 mcg/actuation inhale r Inhale 2 Puffs as instructed every 6 hours as needed f or Wheezing/Shortness of Breath. - clopidogrel (PLAVIX) 75 mg tablet Take 1 tablet by mouth once daily. - hydrOXYzine pamoate (VISTARIL) 25 mg capsule Take 1 capsule by mouth three times daily as needed fo r Anxiety. - aspirin 81 mg chewable tablet Take 1 tablet by mouth once daily. - metoprolol tartrate, short acting, (LOPRESSOR) 25 mg tablet Take 1 tablet by mouth twice daily. - clopidogrel (PLAVIX) 75 mg tablet Take 1 tablet by mouth once daily. Facility-Administered Medications as of 09/08/2021 - perflutren lipid microspheres 1.3 mL in NaCl (PF) 0. 9% 10 mL injection (DEFINITY) - sodium chloride 0.9 % (flush) 10 mL (BD POSIFLUSH) Problem List As Of Date 09/01/2021 Noted Resolved Essential hypertension [I10] 12/14/2015 Recurrent major depression in partial remission*2015 Anxiety [F41.9] 12/14/2015 01/06/2021 Bipolar affective disorder, currently active (H*2015 History of alcohol abuse [F10.11] 01/18/2016 Chronic bronchitis (HCC) [J42] 07/26/2016 Hyperkalemia [E87.5] 07/27/2016 11/27/2018 Polycythemia [D75.1] 07/27/2016 11/27/2018 Spinal stenosis, lumbar region without neurogen*2018 Radiculopathy, lumbar region [M54.16] 12/01/2018 Smoker [F17.200] 03/13/2019 GERD (gastroesophageal reflux disease) [K21.9] 019 Primary osteoarthritis of right hip [M16.11] 9 10/06/2019 History of total right hip arthroplasty [Z96.64*201807/07/2020 Seasonal allergies [J30.2] 05/04/2019 Preop cardiovascular exam [Z01.810] 09/28/2019 019 Precordial pain, short lived, 3-5 minutes, none*201807/07/2020 PAD (peripheral artery disease) (HCC) [I73.9] 09/28/20 19 Anxiety and depression [F41.9, F32.A] 10/06/2019 Hypomagnesemia [E83.42] 10/22/2019 10/23/2019 Asthma [J45.909] 07/07/2020 07/07/2020 Prediabetes [R73.03] 02/04/2021 Chest pain [R07.9] 05/08/2021 Other chest pain [R07.89] 05/08/2021 Stenosis of carotid artery [I65.29] 05/08/2021 Mixed hyperlipidemia [E78.2] 05/08/2021 Abnormal stress test [R94.39] 08/26/2021 Dyspnea on exertion [R06.00] 08/26/2021 Encounter Status:Closed by TRACY RAMIRES on 09/01/21 CNPN Telephone (AKCRL) Normal [facility] VINCE KOENIG ([id number]) 1955 F Medical Date Time Provider Department Center 09/01/21 BEE MCGILL During your visit today, we recorded the following inf ormation about you: Bee Mcgill, Agricultural Agent 09/01/2021 10: 44 AM Signed Faxed to [place] based on location. Bee Mcgill, [facility] [place] [id number] Allergies As of Date: 09/01/2021 (No Known Allergies) Date Reviewed: 08/31/2021 Reviewed by: Babatunde Lomeli MD - Fully Assessed Reason for Visit: Cardiac Rehab [[id number]] Prescriptions as of 09/01/2021 - oxyCODONE-acetaminophen (PERCOCET) 5-325 mg tablet Take 1 tablet by mouth every 8 hours as needed. Patient has a fractured elbow and due to cardiac reasons cannot have surgery a t this time, and will require greater than 30 MEDD to treat chronic pain (ICD-10 cod e G89.18). - lisinopril (ZESTRIL, PRINIVIL) 40 mg tablet Take 1 tablet by mouth once daily. - amLODIPine (NORVASC) 10 mg tablet TAKE 1 TABLET BY MOUTH EVERY DAY - varenicline (CHANTIX STARTING MONTH BOX) 0.5 mg (11) - 1 mg (42) tablet Take 0.5 mg by mouth once daily on Days 1 through 3, T HEN 0.5 mg twice daily on Days 4 through 7, THEN 1 mg twice daily on Day 8 an d thereafter - traZODone (DESYREL) 100 mg tablet Take 2 tablets by mouth daily at bedtime. - loratadine (CLARITIN) 10 mg tablet Take 1 tablet by mouth once daily. - omeprazole (PRILOSEC) 40 mg capsule Take 1 capsule by mouth once daily. - atorvastatin (LIPITOR) 40 mg tablet Take 1 tablet by mouth once daily. - albuterol HFA (VENTOLIN HFA) 90 mcg/actuation inhale r Inhale 2 Puffs as instructed every 6 hours as needed f or Wheezing/Shortness of Breath. - clopidogrel (PLAVIX) 75 mg tablet Take 1 tablet by mouth once daily. - venlafaxine ER (EFFEXOR XR) 150 mg 24 hr capsule Take 1 capsule by mouth once daily. - hydrOXYzine pamoate (VISTARIL) 25 mg capsule Take 1 capsule by mouth three times daily as needed fo r Anxiety. - aspirin 81 mg chewable tablet Take 1 tablet by mouth once daily. - metoprolol tartrate, short acting, (LOPRESSOR) 25 mg tablet Take 1 tablet by mouth twice daily. - clopidogrel (PLAVIX) 75 mg tablet Take 1 tablet by mouth once daily. Facility-Administered Medications as of 09/01/2021 - perflutren lipid microspheres 1.3 mL in NaCl (PF) 0. 9% 10 mL injection (DEFINITY) - sodium chloride 0.9 % (flush) 10 mL (BD POSIFLUSH) Problem List As Of Date 09/01/2021 Noted Resolved Essential hypertension [I10] 12/14/2015 Recurrent major depression in partial remission*2015 Anxiety [F41.9] 12/14/2015 01/06/2021 Bipolar affective disorder, currently active (H*2015 History of alcohol abuse [F10.11] 01/18/2016 Chronic bronchitis (HCC) [J42] 07/26/2016 Hyperkalemia [E87.5] 07/27/2016 11/27/2018 Polycythemia [D75.1] 07/27/2016 11/27/2018 Spinal stenosis, lumbar region without neurogen*2018 Radiculopathy, lumbar region [M54.16] 12/01/2018 Smoker [F17.200] 03/13/2019 GERD (gastroesophageal reflux disease) [K21.9] 019 Primary osteoarthritis of right hip [M16.11] 9 10/06/2019 History of total right hip arthroplasty [Z96.64*201807/07/2020 Seasonal allergies [J30.2] 05/04/2019 Preop cardiovascular exam [Z01.810] 09/28/2019 019 Precordial pain, short lived, 3-5 minutes, none*201807/07/2020 PAD (peripheral artery disease) (HCC) [I73.9] 09/28/20 19 Anxiety and depression [F41.9, F32.A] 10/06/2019 Hypomagnesemia [E83.42] 10/22/2019 10/23/2019 Asthma [J45.909] 07/07/2020 07/07/2020 Prediabetes [R73.03] 02/04/2021 Chest pain [R07.9] 05/08/2021 Other chest pain [R07.89] 05/08/2021 Stenosis of carotid artery [I65.29] 05/08/2021 Mixed hyperlipidemia [E78.2] 05/08/2021 Abnormal stress test [R94.39] 08/26/2021 Dyspnea on exertion [R06.00] 08/26/2021 Encounter Status:Closed by BEE MCGILL on CNDS on 08-26-2021 CNDS HNO ID: [id number] [facility] Author: Ben Thao MD Center Service: Interventional Cardiology Author Type: Physician Type: Discharge Summary Filed: 08/26/2021 12:23 PM Note Text: DISCHARGE SUMMARY PATIENT NAME: Vince Koenig ADMISSION DATE: 2020 DISCHARGE DATE: 08/26/2021 ATTENDING PHYSICIAN: Juan Ramon Pichardo MD Code Status: No t on file Highest Readmission Risk Score: 9 The 30 day readmissions risk score is derived from an internally validated risk model which evaluates patient level meagan racteristics, utilization history, medication orders and lab results up until the day of discharge. Patients with a score of 40 or above are co nsidered highest risk for readmission. Specific patient level drivers w ill be listed at the bottom of the summary. CONSULTING TEAMS DURING HOSPITALIZATION: None Treatment Team: Attending Provider: Juan Ramon Pichardo MD REASON FOR HOSPITALIZATION: Patient admitted after per cutaneous coronary intervention with bifurcation stenting of the LAD and diagonal branch DIAGNOSIS: Principal Problem: Abnormal stress test POA: Yes Active Problems: Essential hypertension POA: Yes Mixed hyperlipidemia POA: Yes Dyspnea on exertion POA: Yes Resolved Problems: * No resolved hospital problems. * Sepsis Ruled Out OPERATIONS DURING HOSPITALIZATION: None PROCEDURES DURING HOSPITALIZATION: Heart Catheterizati on: Intervention: Drug-eluting stent LAD and diagonal HOSPITAL COURSE: No notes on file PATIENT CONDITION AT DISCHARGE: Stable DISCHARGE DISPOSITION: Home/Self Care Physical exam Frail elderly woman sitting appears comfortable no larissa arent distress HEENT carotid upstrokes are brisk bilateral without br uits no JVD Pulmonary: Lungs are clear diminished breath sounds no gilda throughout no rales wheezes rhonchi Cardiovascular: Normal S1, S2 with regular rate and rh ythm. No murmurs, rubs, or gallops Extremities: Warm, well-perfused. Right radial access site is clean dry and intact with 2+ radial pulse. INFORMATION PROVIDED TO PATIENT: None WOUND/SURGICAL SITE CARE: Wound/Surgical Site Care Any bruising and bumps should disappear within 3-4 day s Avoid lotions or powders Check your wound every day If the bruising expands or the bump enlarges please ca ll your doctor Some bruising, soreness or a small bump under the skin at the inserion site is normal DIET: Resume pre-hospital diet ACTIVITY: Resume pre-hospital activity ALLERGIES No Known Allergies DISCHARGE MEDICATION: Current Discharge Medication List CONTINUE these medications which have NOT CHANGED lisinopril (ZESTRIL, PRINIVIL) 40 mg Take 40 mg by mouth once daily. Qty: 30 tablet Refills: 5 Associated Diagnoses:Essential hypertension amLODIPine (NORVASC) 10 mg tablet TAKE 1 TABLET BY MOUTH EVERY DAY Qty: 90 tablet Refills: 3 atorvastatin (LIPITOR) 40 mg Take 40 mg by mouth once daily. Qty: 30 tablet Refills: 5 albuterol HFA (PROVENTIL HFA, VENTOLIN HFA) 2 Puffs Inhale 2 Puffs as instructed every 6 hours as needed f or wheezing/shortness of breath. Qty: 80 g Refills: 5 Comments: Generic or brand: dispense inhaler preferred by patient/insurance unless BECKY flag is selected. Associated Diagnoses:Chronic bronchitis, unspecified c hronic bronchitis type (HCC) venlafaxine ER (EFFEXOR XR) 150 mg Take 150 mg by mouth once daily. Qty: 90 capsule Refills: 1 Associated Diagnoses:Recurrent major depression in par tial remission (HCC) aspirin 81 mg Take 81 mg by mouth once daily. Qty: 90 tablet Refills: 3 metoprolol tartrate (short acting) (LOPRESSOR) 25 mg Take 25 mg by mouth twice daily. Qty: 60 tablet Refills: 5 Associated Diagnoses:Essential hypertension !! clopidogrel (PLAVIX) 75 mg Take 75 mg by mouth once daily. Qty: 30 Each Refills: 3 !! oxyCODONE-acetaminophen (PERCOCET) 1 tablet Take 1 tablet by mouth every 6 hours as needed. Qty: 15 tablet Refills: 0 Associated Diagnoses:Closed fracture of right elbow, i nitial encounter !! oxyCODONE-acetaminophen (PERCOCET) 1 tablet Take 1 tablet by mouth every 4 hours as needed. Qty: 20 tablet Refills: 0 Associated Diagnoses:Closed fracture of right elbow, i nitial encounter varenicline (CHANTIX STARTING MONTH BOX) 0.5 mg (11)- 1 mg (42) tablet Take 0.5 mg by mouth once daily on Days 1 through 3, T HEN 0.5 mg twice daily on Days 4 through 7, THEN 1 mg twice daily on Da y 8 and thereafter Qty: 53 tablet Refills: 0 Associated Diagnoses:Smoker traZODone (DESYREL) 200 mg Take 200 mg by mouth daily at bedtime. Qty: 60 tablet Refills: 5 Associated Diagnoses:Recurrent major depression in par tial remission (HCC) loratadine (CLARITIN) 10 mg Take 10 mg by mouth once daily. Qty: 30 tablet Refills: 5 Associated Diagnoses:Seasonal allergies omeprazole (PriLOSEC) 40 mg Take 40 mg by mouth once daily. Qty: 30 capsule Refills: 5 !! clopidogrel (PLAVIX) 75 mg Take 75 mg by mouth once daily. Qty: 90 tab (more content not included)... BRIEF OP NOT on 08-25-2021 BRIEF OP NOT HNO ID: [id number] Normal [facility] Medical Author: MD Becka Valdes Service: Cardiovascular Medicine Author Type: Physician Type: Brief Op Note Filed: 08/25/2021 12:48 PM Note Text: Brief Cath note: Indications: Chest pain, abnormal stress test Access: 6Fr. Right radial artery Closure: TR band Findings: Left main Normal LAD 60% mid stenosis at the bifurcation of D1. D1 with 70% ostial stenosis LCx 40% OM2 stenosis RCA mild diffuse disease DFR of the mid LAD stenosis was 0.89 which is hemodyna mically significant DFR of D1 was 0.83 which is hemodynamically significan t LVEDP: 21mmHg Successful IVUS guided PCI of the LAD/D1 bifurcation w ith a 3.0x48mm Synergy RODNEY in the LAD, post dilated to 3.2mm, and 2.2 5mm Synergy RODNEY in D1, post dilated to 2.5mm. The post dilated was perfor med in kissing fashion, which makes the pot dilation diameter of the proximal LAD portion of the stent 3.7mm, with alevism of blood flow, no residual stenosis. No complications. Recommend: ASA/Plavix Continue other guideline directed medical therapy Juan Ramon Kemp MD Clinical Social Work Therapist of Internal Medicine [facility] Regional Section of Interventional Cardiology Faculty Support Coordinator of Structural Heart Disease [facility] [address], [address] [place] [address] Facsimile: [phone] Email: [email or web address] Basic metabolic 2000 panel on 1 Anion gap [Moles/Vol] 14 mmol/L Normal 9-18 [facility] Comment on above: Order Comment: Specimen Type : BLOOD SPECIMEN Performed By: #### 59594-9 # ###[facility] LABORATORYCLIA [id number] [place] [address] [place] OF [facility] Calcium [Mass/Vol] 9.2 mg/dL Normal 8.5-10.2 [facility] Comment on above: Order Comment: Specimen Type : BLOOD SPECIMEN Performed By: #### 27591-7 # ###[facility] LABORATORYCLIA [id number] [place] [address] [place] [facility] Chloride [Moles/Vol] 102 mmol/L Normal 97-105 [place] Comment on above: Order Comment: Specimen Type : BLOOD SPECIMEN Performed By: #### 24112-9 # ###[facility] LABORATORYCLIA [id number] [facility] [place] [address] [place] CO2 [Moles/Vol] 21 mmol/L Low 22-30 [facility] Comment on above: Order Comment: Specimen Type : BLOOD SPECIMEN Performed By: #### 39510-7 # ###[facility] LABORATORYCLIA [id number] [place] [address] [place] [facility] Creatinine [Mass/Vol] 0.72 mg/dL Normal 0.58-0.96 [facility] Comment on above: Order Comment: Specimen Type : BLOOD SPECIMEN Performed By: #### 34628-0 # ###[facility] LABORATORYCLIA [id number] [address] [place] GFR/1.73 sq M.predicted MDRD mL/min/{1.73_m2} Normal [facility] (S/P/Bld) [Vol rate/Area] Ce nter Comment on above: Order Comment: Specimen Type : BLOOD SPECIMEN Result Comment: >60 eGFR (Estimated GFR) Units o f measure: mL/min/1.73 meters squared eGFR is derived from the ree xpressed MDRD Study equation using the following parameters: serum creatinine, age, gender and race. The creatinine assay has been calibrated to be traceable to IDWI. An eGFR <60 mL/min/1.73m2 for >3 mo nths is consistent with chronic kidney disease. Refer to KDOQI guidelines for clinical interpretation. In patients with unstable renal function, e.g. those with acute k idney injury, the eGFR may n ot accurately reflect actual GFR. Performed By: #### 84215-2 # ###[facility] LABORATORYCLIA [id number] [place] [address] [place] Glucose [Mass/Vol] 92 mg/dL Normal 74-99 [facility] Comment on above: Order Comment: Specimen Type : BLOOD SPECIMEN Result Comment: The [place] Diabetes Association (ADA) provides guidance for cutoff values for fasting glucose and random glucose. The ADA defines fasting as no caloric intake for at least 8 hours. Fas ting plasma glucose results between 100 to 125 mg/dL indicate increased risk for diabetes (prediabetes). Fasting plasma glucose resul ts greater than or equal to 126 mg/dL meet the criteria for diagnosis of diabetes. In the absence of unequivocal hyperglycemia, results should be confirmed by repeat testing. In a patient with classic s ymptoms of hyperglycemia or hyperglycemic crisis, random plasma glucose results greater than or equal to 200 mg/dL meet the criteria for diagnosis of diabetes. Reference: Standards of [facility] Care in Diabetes 2016, [place] Diabetes Association. Diabetes Care. 2016.39(Suppl 1). Performed By: #### 88015-5 # ###[facility] LABORATORYCLIA [id number] [address] Potassium [Moles/Vol] 4.7 mmol/L Normal 3.7-5.1 [facility] Comment on above: Order Comment: Specimen Type : BLOOD SPECIMEN Performed By: #### 31118-0 # ###[facility] LABORATORYCLIA [id number] [place], [place] [id number] [place] [address] Sodium [Moles/Vol] 137 mmol/L Normal 136-144 [facility] Comment on above: Order Comment: Specimen Type : BLOOD SPECIMEN Performed By: #### 62833-7 # ###[facility] LABORATORYCLIA [id number] [place], [place] [id number] [place] [address] [place] [facility] Urea nitrogen [Mass/Vol] 11 mg/dL Normal 7-21 [facility] Comment on above: Order Comment: Specimen Type : BLOOD SPECIMEN Performed By: #### 30042-1 # ###[facility] LABORATORYCLIA [id number] [place], [place] [address] [place] [address] OF [facility] CBC panel Auto (Bld) on 08-25-2021 Erythrocyte distribution width 15.4 % High 11.5-15.0 [facility] (RBC) [Ratio] Comment on above: Order Comment: Specimen Type : BLOOD SPECIMEN Performed By: #### 59918-5 # ### [facility] CLIA [id number] [address] [place] Hematocrit (Bld) [Volume fraction] 46.7 % High 36.0-4 6.0 [facility] Comment on above: Order Comment: Specimen Type : BLOOD SPECIMEN Performed By: #### 59985-9 # ### [facility] CLIA [id number] [address] Hemoglobin (Bld) [Mass/Vol] 14.9 g/dL Normal 11.5-15.5 [facility] Comment on above: Order Comment: Specimen Type : BLOOD SPECIMEN Performed By: #### 36213-3 # ### [facility] CLIA [id number] [address] MCH (RBC) [Entitic mass] 31.6 pg Normal 26.0-34.0 [facility] Comment on above: Order Comment: Specimen Type : BLOOD SPECIMEN Performed By: #### 93068-7 # ### [facility] CLIA [id number] [address] MCHC (RBC) [Mass/Vol] 31.9 g/dL Normal 30.5-36.0 [facility] Comment on above: Order Comment: Specimen Type : BLOOD SPECIMEN Performed By: #### 41509-1 # ### [facility] CLIA [id number] [address] MCV (RBC) [Entitic vol] 98.9 fL Normal 80.0-100.0 [facility] Comment on above: Order Comment: Specimen Type : BLOOD SPECIMEN Performed By: #### 80786-0 # ### [facility] CLIA [id number] [address] Nucleated RBC (Bld) [#/Vol] 10*3/uL Normal <0.01 [facility] Comment on above: Order Comment: Specimen Type : BLOOD SPECIMEN Performed By: #### 08565-0 # ### [facility] CLIA [id number] [address] Platelet mean volume (Bld) 10.4 fL Normal 9.0-12.7 [facility] [Entitic vol] Comment on above: Order Comment: Specimen Type : BLOOD SPECIMEN Performed By: #### 12273-9 # ### [facility] CLIA [id number] [address] OF [facility] Platelets (Bld) [#/Vol] 375 10*3/uL Normal 150-400 [facility] Comment on above: Order Comment: Specimen Type : BLOOD SPECIMEN Performed By: #### 74164-8 # ### [facility] CLIA [id number] [address] OF [facility] RBC (Bld) [#/Vol] 4.72 10*6/uL Normal 3.90-5.20 [facility] Comment on above: Order Comment: Specimen Type : BLOOD SPECIMEN Performed By: #### 20570-0 # ### [facility] CLIA [id number] [address] WBC (Bld) [#/Vol] 10.76 10*3/uL Normal 3.70-11.00 [facility] Comment on above: Order Comment: Specimen Type : BLOOD SPECIMEN Performed By: #### 72047-1 # ### [facility] CLIA [id number] [address] HISTORY PHYSICAL on 08-25-2021 HISTORY PHYSICAL HNO ID: [id number] [facility] Author: MD Becka Valdes Service: Cardiovascular Medicine Author Type: Physician Type: HANDP Filed: 08/25/2021 9:01 AM Note Text: UPDATED HANDP PRE-CARDIAC CATHETERIZATION SERVICE DATE: 08/25/2021 SERVICE TIME: 9:01 AM PHYSICAL EXAM MUST BE COMPLETED ON ADMISSION The History and Physical (completed in the past 30 day s) has been reviewed and the patient has been examined. The contents accura tely reflect the patient's condition with the following additions or re visions since the HANDP was completed. Examination indicates no changes. Planned Procedure: Left Heart Cath + Possible PCI Primary Indication for Procedure: Markedly Abnormal St ress Test High Risk Features: History of Prior CABG: No History of Prior PCI: No Cardiomyopathy: No Anti-ischemic Meds in Past 2 Weeks: Beta blockers Ejection Fraction: 55% HISTORY OF BLEEDING: No This HANDP can be found in the Electronic [facility] [address] SIGNATURE: Juan Ramon Pichardo MD PATIENT NAME: Vince juárez DATE: August 25, 2021 TIME: 9:00 AM CNPN on 08-15-2021 LINDAN Telephone (AGCARDPOB) Normal [facility] VINCE KOENIG ([id number]) 1955 F Medical Date Time Provider Department Center 08/15/21 TRACY RAMIRES During your visit today, we recorded the following inf ormation about you: Suzy Cordero RN 08/15/2021 8:11 AM Signed ----- Message from Tracy Ramires APRN.CNP sent at 1 7:51 AM EDT ----- Please call patient and notify her of normal stress te sting results. There is no scintigraphic evidence for inducible ische nay. EF 55% Stress ECG Conclusion: Conclusion: Normal Suzy Cordero RN 08/15/2021 8:12 AM Signed Left message on voicemail requesting pt return call fo r test results. Office phone number provided. AAMIR Russell APRN.CNP 08/15/2021 9:29 AM Signed Actually due to elevated TID ratio (1.4). It would be reasonable to do a C. I would like to review this with the patient when she ca lls back. Thank you! Suzy Cordero RN 08/15/2021 11:17 AM Signed Spoke with pt. Notified of stress test results and rec ommendations for cath. Pt is agreeable to cath. AAMIR Russell APRN.CNP 08/15/2021 11:27 AM Signed Spoke with the patient. She would like to go ove r the risks and benefits of a heart cath with me in person on Saturday during our offi ce visit and then schedule after. Thank you, ANGELICA Sin Ma 08/15/2021 12:13 PM Signed Pt calling to see if she can be cleared to have her el bow fracture surgery prior to heart cath. She is in pain and would like to have surgery helder with ortho. Please review and advise. ZHEN Serrano APRN.CNP 08/15/2021 12:30 PM Signed I do not recommend surgery until we know her cardiac status. I can get her set up for her heart cath pretty quickly. When does she pl an to have surgery? Thanks, ANGELICA Sin APRN.CNP 08/15/2021 2:20 PM Addendum Please schedule with Dr. Jenkins, Dr. Pichardo or Dr. Win clark at their next available opening for heart catheterizat ion for further assessment of elevated TID ratio on stress testing, multiple risk factors and pre op clearance. Patient has pending labs she needs to have drawn prior . Thank you, ANGELICA Sin APRN.CNP 08/15/2021 2:21 PM Signed Addended by: TRACY RAMIRES on: 08/15/2021 02:21 PM Modules accepted: Orders Suzy Cordero RN 08/16/2021 9:26 AM Signed Se Prep for procedure encounter. 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 - oxyCODONE-acetaminophen (PERCOCET) 5-325 mg tablet Take 1 tablet by mouth every 4 hours as needed. - lisinopril (ZESTRIL, PRINIVIL) 40 mg tablet Take 1 tablet by mouth once daily. - amLODIPine (NORVASC) 10 mg tablet TAKE 1 TABLET BY MOUTH EVERY DAY - varenicline (CHANTIX STARTING MONTH BOX) 0.5 mg (11) - 1 mg (42) tablet Take 0.5 mg by mouth once daily on Days 1 through 3, T HEN 0.5 mg twice daily on Days 4 through 7, THEN 1 mg twice daily on Day 8 an d thereafter - traZODone (DESYREL) 100 mg tablet Take 2 tablets by mouth daily at bedtime. - loratadine (CLARITIN) 10 mg tablet Take 1 tablet by mouth once daily. - omeprazole (PRILOSEC) 40 mg capsule Take 1 capsule by mouth once daily. - atorvastatin (LIPITOR) 40 mg tablet Take 1 tablet by mouth once daily. - albuterol HFA (VENTOLIN HFA) 90 mcg/actuation inhale r Inhale 2 Puffs as instructed every 6 hours as needed f or Wheezing/Shortness of Breath. - clopidogrel (PLAVIX) 75 mg tablet Take 1 tablet by mouth once daily. - venlafaxine ER (EFFEXOR XR) 150 mg 24 hr capsule Take 1 capsule by mouth once daily. - hydrOXYzine pamoate (VISTARIL) 25 mg capsule Take 1 capsule by mouth three times daily as needed fo r Anxiety. - aspirin 81 mg chewable tablet Take 1 tablet by mouth once daily. - metoprolol tartrate, short acting, (LOPRESSOR) 25 mg tablet Take 1 tablet by mouth twice daily. - clopidogrel (PLAVIX) 75 mg tablet Take 1 tablet by mouth once daily. Facility-Administered Medications as of 08/16/2021 - perflutren lipid microspheres 1.3 mL in NaCl (PF) 0. 9% 10 mL injection (DEFINITY) - sodium chloride 0.9 % (flush) 10 mL (BD POSIFLUSH) Problem List As Of Date 08/15/2021 Noted Resolved Essential hypertension [I10] 12/14/2015 Recurrent major depression i (more content not include d)... NM CARDIAC PERF STRESS/PHARM on 021 NM CARDIAC * * *Final Report* * * [facility] DATE OF EXAM: Aug 14 2021 4:02PM [facility] STRESS/PHARM MDN [id number] - NM CARDIAC PERF STRESS/PHARM / PROCEDURE REASON: multiple diagnoses * * * * Physician Interpretation * * * * Stress Heating Mechanic Report: [facility] Date of service: 08/14/2021 3:00:40 PM Supervising physician: Fransico Galarza DO PATIENT: Name: MRS. VINCE KOENIG Age: 66 years Gender: F The supervising physician was present during the stres s procedure. Final PATIENT: Name: MRS. VINCE KOENIG Age: 66 years Gender: F CONCLUSIONS: 1. SPECT Perfusion Study: Normal. 2. There is no scintigraphic evidence for inducible is chemia. 3. No evidence of scarred myocardium. 4. Left ventricle is normal in size. The left ventricl e systolic function is normal. 5. This is a low risk scan. Gated Stress FBP LVEF % 55 Prior Study Comparison Prior nuclear cardiology exam w as performed on 09/09/19. Nuclear Med Report:1-Day Tc-Tetrofosmin Gated SPECT My ocardial Perfusion with Regadenoson Stress: Myocardial perfusion imaging was performed at rest 30 minutes following the IV injection of Tc-99m t etrofosmin. The patient received 0.4 mg of regadenoson, via rapid IV p ush, immediately followed by Tc-99m tetrofosmin IV. Gated post stress t omographic imaging was performed 30 to 60 minutes later. See administered doses below. [facility] Date of service: 08/14/2021 3:00:40 PM Indication: Dyspnea and CP - ECG uniterpretable OR ishan ble to exercise Interpreting physician: Emil Reza MD Height: 165.10 cm BSA: 1.69 m? Weight: 62.60 kg BMI: 23.0 kg/m? Imaging Protocol Limitation Reason Liver Retention and G.I. uptake. Exam Type: Rest Stress Radiopharm: Tc-99m Tetrofosmin Tc-99m Tetrofosmin Dosage(mCi): 12.6 30.5 Atten Correction: not performed not performed Stress Agent: Regadenoson 0.4mg Supply provided from [facility] Resting Blood Press: 151/72 mmHg Image Quality The overall study imaging quality was deemed to be goo d. The following technical issues were noted: Liver Retention and G.I. uptake. FINDINGS: Left Ventricle Wall Motion: Stress IR:3D - All segments are normal. Rest IR:3D - Gated Stress FBP - Reversibility - Stress IR:3D Stress IR:3D Gated Stress FBP LVEF: 55 % ED Volume: 89 ml ES Volume: 40 ml TID: 1.40 Perfusion Findings Stress IR:3D - Summed Score=0 All segments demonstrate normal perfusion. Rest IR:3D - Summed Score=0 All segments demonstrate normal perfusion. Stress IR:3D Rest IR:3D Summed Score=0 Summed Score=0 LEFT VENTRICLE The left ventricle is normal in size. Left ventricular systolic function is normal. Right Ventricle The right ventricle is unseen or not interrogated. Stress Test Findings: There is no scintigraphic evidence for inducible ische nay. There is no evidence of scarring. Final Stress ECG Report: [facility] Date of service: 08/14/2021 3:00:40 PM Ordering physician: TRACY RAMIRES Specialist: Grace Sagastume Collections Clerk: Guera Fowler Stress ECG interpreting physician: Fransico Galarza DO PATIENT: Name: MRS. VINCE KOENIG Age: 66 years Gender: F Height: 165.10 cm BSA: 1.69 m? Weight: 62.60 kg BMI: 23.0 kg/m? Stress ECG Conclusion: Conclusion: Normal Stress ECG Summary: The patient's resting heart rate was 71 bpm and blood pressure was 151/72 mmHg. The test was terminated due to end of protocol. Other symptoms during the test included SOB. The maximum heart rate w as 94 bpm, which is 61% of the predicted heart rate for age. Peak blood pr essure was 146/80 mmHg. The double product achieved was [address]. Indication: Shortness of breath Medical History and Comorbidities: COPD, smoker, hypertension and hyper-cholesterol. Medications: Last Used ZESTRIL NORVASC LIPITOR ALBUTEROL INHALER TRAZODONE PLAVIX EFFEXOR ASPIRIN METOPROLOL Resting ECG: Normal Sinus Rhythm Symptoms at rest: No symptoms Pharamcologic Protocol: Regadenoson Stress Exercise Table: +----+--+---+---+ Step HR SYS MARICRUZ +----+--+---+---+ 1 85 +----+--+---+---+ 2 94 146 80 +----+--+---+---+ 3 92 143 76 +----+--+---+---+ 4 88 136 74 +----+--+---+---+ 5 90 125 76 +----+--+---+---+ 6 91 140 81 +----+--+---+---+ +-----+++--+---+---+ HR SYS MARICRUZ +-----+++--+---+---+ Final 94 146 80 +-----+++--+---+---+ Stress ECG Findings: Resting HR: 71 bpm Peak HR: 94 bpm (61% MPHR) Resting BP: 151 / 72 mmHg Peak BP: 146 / 80 mmHg Rate Pressure Product (RPP): 34577 St (more content not included)... CNPN on 06-21-2021 LINDAN Telephone (AGCARDPOB) Normal [facility] VINCE KOENIG ([id number]) 1955 F Medical Date Time Provider Department Center 06/21/21 TRACY RAMIRES During your visit today, we recorded the following inf ormation about you: Tracy Alan LPN 06/21/2021 8:38 AM Signed ----- Message from Tracy Ramires APRN.FISH HATCHERY WORKER sent at 7:27 AM EDT ----- Please call patient and let her know she has mild non obstructive carotid disease. Thank you! Tracy Alan LPN 06/21/2021 8:40 AM Signed I called and left a message for to call [facility] for test results. PETERSON Grover LPN 06/21/2021 2:57 PM Signed Called and left a voice mail with result s per Tracy Ramires CNP instructions. Instructed patient to call office back with any questi ons. Diana Mahan LPN Allergies As of Date: 06/21/2021 (No Known Allergies) Date Reviewed: 06/14/2021 Reviewed by: Tracy Ramires APRN.FISH HATCHERY WORKER - Fully Assesse d Reason for Visit: Results [95] Prescriptions as of 06/21/2021 - amLODIPine (NORVASC) 10 mg tablet TAKE 1 TABLET BY MOUTH EVERY DAY - varenicline (CHANTIX STARTING MONTH BOX) 0.5 mg (11) - 1 mg (42) tablet Take 0.5 mg by mouth once daily on Days 1 through 3, T HEN 0.5 mg twice daily on Days 4 through 7, THEN 1 mg twice daily on Day 8 an d thereafter - traZODone (DESYREL) 100 mg tablet Take 2 tablets by mouth daily at bedtime. - loratadine (CLARITIN) 10 mg tablet Take 1 tablet by mouth once daily. - omeprazole (PRILOSEC) 40 mg capsule Take 1 capsule by mouth once daily. - atorvastatin (LIPITOR) 40 mg tablet Take 1 tablet by mouth once daily. - albuterol HFA (VENTOLIN HFA) 90 mcg/actuation inhale r Inhale 2 Puffs as instructed every 6 hours as needed f or Wheezing/Shortness of Breath. - clopidogrel (PLAVIX) 75 mg tablet Take 1 tablet by mouth once daily. - venlafaxine ER (EFFEXOR XR) 150 mg 24 hr capsule Take 1 capsule by mouth once daily. - hydrOXYzine pamoate (VISTARIL) 25 mg capsule Take 1 capsule by mouth three times daily as needed fo r Anxiety. - aspirin 81 mg chewable tablet Take 1 tablet by mouth once daily. - lisinopril (ZESTRIL, PRINIVIL) 40 mg tablet Take 1 tablet by mouth once daily. - metoprolol tartrate, short acting, (LOPRESSOR) 25 mg tablet Take 1 tablet by mouth twice daily. - clopidogrel (PLAVIX) 75 mg tablet Take 1 tablet by mouth once daily. Facility-Administered Medications as of 06/21/2021 - perflutren lipid microspheres 1.3 mL in NaCl (PF) 0. 9% 10 mL injection (DEFINITY) - sodium chloride 0.9 % (flush) 10 mL (BD POSIFLUSH) Problem List As Of Date 06/21/2021 Noted Resolved Essential hypertension [I10] 12/14/2015 Recurrent major depression in partial remission*2015 Anxiety [F41.9] 12/14/2015 01/06/2021 Bipolar affective disorder, currently active (H*2015 History of alcohol abuse [F10.11] 01/18/2016 Chronic bronchitis (HCC) [J42] 07/26/2016 Hyperkalemia [E87.5] 07/27/2016 11/27/2018 Polycythemia [D75.1] 07/27/2016 11/27/2018 Spinal stenosis, lumbar region without neurogen*2018 Radiculopathy, lumbar region [M54.16] 12/01/2018 Smoker [F17.200] 03/13/2019 GERD (gastroesophageal reflux disease) [K21.9] 019 Primary osteoarthritis of right hip [M16.11] 9 10/06/2019 History of total right hip arthroplasty [Z96.64*201807/07/2020 Seasonal allergies [J30.2] 05/04/2019 Preop cardiovascular exam [Z01.810] 09/28/2019 019 Precordial pain, short lived, 3-5 minutes, none*201807/07/2020 PAD (peripheral artery disease) (HCC) [I73.9] 09/28/20 19 Anxiety and depression [F41.9, F32.9] 10/06/2019 Hypomagnesemia [E83.42] 10/22/2019 10/23/2019 Asthma [J45.909] 07/07/2020 07/07/2020 Prediabetes [R73.03] 02/04/2021 Chest pain [R07.9] 05/08/2021 Other chest pain [R07.89] 05/08/2021 Stenosis of carotid artery [I65.29] 05/08/2021 Mixed hyperlipidemia [E78.2] 05/08/2021 Encounter Status:Closed by DIANA MAHAN on 06/21/21 Basic Metabolic Panel on 05-04-2018 Calcium 8.4 mg/dL Normal 8.2-10.1 [facility] Comment on above: Result Comment: Repeated Performed By: #### HEMDF BM P3 ####[employer] [id number] [place] [address] Chloride 100 mmol/L Normal 98-109 [facility] Comment on above: Result Comment: Repeated Performed By: #### HEMDF, BM P3 ####[employer] [id number] [place] [address] Sodium 134 mmol/L Low 135-145 [facility] Comment on above: Result Comment: Repeated Performed By: #### HEMDF, BM P3 ####[employer] [address] [place] [address] Anion gap 7 Normal [facility] Comment on above: Performed By: #### HEMDF, BM P3 ####[employer] [address] [place] [address] CO2 27 mmol/L Normal 21-32 [facility] Sy stem Comment on above: Performed By: #### HEMDF, BM P3 ####[employer] [address] [place] [address] Creatinine 0.79 mg/dL Normal 0.55-1.40 [facility] stem Comment on above: Performed By: #### HEMDF, BM P3 ####[employer] [place] [address] eGFR (black) mL/min/{1.73_m2} Normal >60 [facility] Comment on above: Performed By: #### HEMDF, BM P3 ####[employer] [place] [address] eGFR (non-black) mL/min/{1.73_m2} Normal >60 [facility] Comment on above: Result Comment: Source- MDRD equation with creatinine calibration to IDMS(NKDEP) eGFR not isidra mmended for drug dose adjustment Performed By: #### HEMLISETTE BM P3 ####[address] [place] [address] Glucose mass conc 98 mg/dL Normal 70-100 [facility] Comment on above: Performed By: #### HEMLISETTE BM P3 ####[address] [place] [address] Potassium molar conc 4.6 mmol/L Normal 3.5-5.1 [facility] Comment on above: Performed By: #### HEMLISETTE BM P3 ####[address] [place] [address] Urea nitrogen 20 mg/dL Normal 7-25 [facility] ystem Comment on above: Performed By: #### HEMDF, BM P3 ####[address] [place] [address] Glucose,Bedside on 05-04-2018 Glucose mass conc 99 mg/dL Normal 70-100 [facility] Comment on above: Result Comment: Test perform ed by glucose meter. Results may be 10%-15% lowerthan serum/plas ma values. (CLIA ID [id number]) Performed By: #### BGLU #### [address] [place] [address] Hemogram w/ Autodiff on 05-04-2018 Abs Baso Cnt 0.1 10*3/uL Normal 0.0-0.2 [facility] Comment on above: Performed By: #### HEMLISETTE BM P3 ####[facility] [address] [address] Basophils/100 WBC Auto (Bld) 1.0 % Normal 0.0-2.0 [facility] Comment on above: Performed By: #### HEMLISETTE, BM P3 ####[facility] [address] [address] Eosinophils 0.4 10*3/uL Normal 0.0-0.5 [facility] Comment on above: Performed By: #### HEMLISETTE BM P3 ####[facility] [address] [address] Eosinophils/100 leukocytes 4.3 % Normal 1.0-6.0 [facility] Comment on above: Performed By: #### HEMLISETTE BM P3 ####[facility] [address] [address] Erythrocyte distribution width Auto Ratio 14.7 % High 11.5-14.5 [facility] (RBC) Comment on above: Performed By: #### HEMLISETTE, BM P3 ####[facility] [address] [address] Erythrocytes (RBC) 4.10 10*6/uL Normal 3.80-5.20 [facility] Comment on above: Performed By: #### HEMDF, BM P3 ####[facility] [address] [address] Granulocytes/100 WBC (Bld) 57.2 % Normal 40.0-80.0 [facility] Comment on above: Performed By: #### HEMDF, BM P3 ####[facility] [address] [address] Hematocrit (HCT) 40.2 % Normal 35.0-47.0 [facility] Comment on above: Performed By: #### HEMDF, BM P3 ####[place] [place] [address] Hemoglobin mass conc (Bld) 13.3 g/dL Normal 11.7-16.0 [facility] Comment on above: Performed By: #### HEMLISETTE BM P3 ####[address] [address] Lymphocytes 2.5 10*3/uL Normal 1.0-4.3 [facility] stem Comment on above: Performed By: #### HEMLISETTE BM P3 ####[address] [address] Lymphocytes/100 leukocytes 27.6 % Normal 20.0-40.0 [facility] Comment on above: Performed By: #### HEMLISETTE BM P3 ####[address] [address] MCH 32.5 pg Normal 26.0-34.0 [facility] Sy stem Comment on above: Performed By: #### HEMLISETTE BM P3 ####[address] [address] MCHC mass conc (RBC) 33.0 % Normal 32.0-36.0 [facility] Comment on above: Performed By: #### HEMLISETTE BM P3 ####[address] [address] MCV 98.2 fL High 79.0-98.0 [facility] stem Comment on above: Performed By: #### HEMLISETTE BM P3 ####[address] [address] Monocytes 0.9 10*3/uL High 0.0-0.8 [facility] stem Comment on above: Performed By: #### HEMDF, BM P3 ####[address] [address] Monocytes/100 leukocytes 9.9 % Normal 2.0-10.0 [facility] Comment on above: Performed By: #### HEMLISETTE BM P3 ####[address] [address] Neutrophils 5.2 10*3/uL Normal 1.8-7.0 [facility] stem Comment on above: Performed By: #### HEMDF, BM P3 ####[facility] [employer] [place] [address] Platelet mean volume (PMV) 8.8 fL Normal 7.4-10.4 [facility] Comment on above: Performed By: #### HEMDF, BM P3 ####[facility] [employer] [place] [address] Platelets 362 10*3/uL Normal 140-440 [facility] stem Comment on above: Performed By: #### HEMDF, BM P3 ####[facility]444 [place] [address] WBC (Leukocytes) 9.1 10*3/uL Normal 3.6-10.7 [facility] Comment on above: Performed By: #### HEMLISETTE, BM P3 ####[facility] [address] [place] [address] Ethanol Serum/Plasma on 04-30-2018 Ethanol-Serum/Plasma < 0.010 Normal 0.000-0.010 [facility] [employer] ealt System Comment on above: Result Comment: NOTE: This r esult is for medical treatment only. Analysis performed using non -forensic procedures. Performed By: #### HEMDF, CM P3, QWAL, ETOH4 ####[address] [place] [address] HCG,Urine Qual on 04-30-2018 HCG.beta subunit ( test) Ql (U) Negative Normal Negative [facility] [employer] Comment on above: Result Comment: is the most common reason for HCG in urine, althoughchoriocarcino ma, hydatidiform mole, and certain nontropho-blastic malignanci es also result in detectable urinary HCGlevels. Sensitivity = 20m IU/mL. Performed By: #### DR FAISAL ELLISON4, HCGUR ####[employer] [place], [place] [address] Comp Metabolic Panel on 04-29-2018 Alanine aminotransferase (ALT) 26 U/L Normal 13-69 [facility] Comment on above: Performed By: #### HEMDF, CM P3, QWAL, ETOH4 ####[facility] [address] [place], [place] Alkaline phosphatase (ALP) 65 U/L Normal 38-126 [facility] Comment on above: Performed By: #### HEMDF, CM P3, QWAL, ETOH4 ####[facility] [address] [place], [place] Anion gap 10 Normal [facility] stem Comment on above: Performed By: #### HEMDF, CM P3, QWAL, ETOH4 ####[place] [address] [facility] [place] [place] Aspartate aminotransferase (AST) 23 U/L Normal 15-46 [facility] Comment on above: Performed By: #### HEMDF, CM P3, QWAL, ETOH4 ####[place] [address] [facility] [place] [place] Calcium 9.1 mg/dL Normal 8.4-10.2 [facility] stem Comment on above: Performed By: #### HEMDF, CM P3, QWAL, ETOH4 ####[place] [address] [facility] [place] [place] CO2 24 mmol/L Normal 22-30 [facility] stem Comment on above: Performed By: #### HEMDF, CM P3, QWAL, ETOH4 ####[facility] [address] [facility] [place] [place] [place] Glucose mass conc 144 mg/dL High 70-100 [facility] Comment on above: Performed By: #### HEMDF, CM P3, QWAL, ETOH4 ####[facility] [address] [facility] [place] [place] [place] Protein 7.2 g/dL Normal 6.3-8.2 [facility] stem Comment on above: Performed By: #### HEMDF, CM P3, QWAL, ETOH4 ####[facility] [address] [place], [place] Urea nitrogen 14 mg/dL Normal 7-20 [facility] ystem Comment on above: Performed By: #### HEMDF, CM P3, QWAL, ETOH4 ####[facility] [address] [facility] [place] Bilirubin (total) 0.3 mg/dL Normal 0.2-1.3 [facility] Comment on above: Performed By: #### HEMDF, CM P3, QWAL, ETOH4 ####[facility] [address] [facility] [place] Creatinine 0.74 mg/dL Normal 0.52-1.25 [facility] stem Comment on above: Performed By: #### HEMDF, CM P3, QWAL, ETOH4 ####[facility] [address] [place], [place] eGFR (black) mL/min/{1.73_m2} Normal >60 [facility] Comment on above: Performed By: #### HEMDF, CM P3, QWAL, ETOH4 ####[facility] [address] [place], [place] eGFR (non-black) mL/min/{1.73_m2} Normal >60 [facility] Comment on above: Result Comment: Source- MDRD equation with creatinine calibration to IDMS(NKDEP) eGFR not isidra mmended for drug dose adjustment Performed By: #### HEMDF, CM P3, QWAL, ETOH4 ####[facility] [address] [facility] [place] Albumin 4.4 g/dL Normal 3.5-5.0 [facility] stem Comment on above: Performed By: #### HEMDF, CM P3, QWAL, ETOH4 ####[facility] [employer] [place], [place] Chloride 106 mmol/L Normal 98-107 [facility] Comment on above: Performed By: #### HEMDF, CM P3, QWAL, ETOH4 ####[employer] [facility] [address] [place], [place] Potassium molar conc 4.4 mmol/L Normal 3.5-5.1 [facility] ealt [facility] Comment on above: Performed By: #### HEMDF, CM P3, QWAL, ETOH4 ####[facility] [place] [address] Sodium 141 mmol/L Normal 137-145 [facility] stem Comment on above: Performed By: #### HEMDF, CM P3, QWAL, ETOH4 ####[facility] [place] [address] Drugs of Abuse on 04-29-2018 Cocaine, Ur Negative Normal [facility] Sy stem Comment on above: Performed By: #### DR EVELYN ELLISON, HCGUR ####[place] [facility] [place] [place], [place] [address] Phencyclidine (PCP), Ur Negative Normal [facility] Comment on above: Result Comment: The expected value for all of the drugs listedabove is Negative.The following dr ross or drug groups have been screenedfor by Immunoassay a t the following thresholds:Amphetamine class (1000 ng/mL), Barbitur ates (200 ng/mL),Benzodiazepines (200 ng/mL), Cocaine (300 ng/mL), Methadone (300 ng/mL), Opiates (300 ng/mL),Oxycodone (100 ng/mL) , and PCP (25 ng/mL).NOTE: These results are for medical lynda tment only.Analysis performed using non-forensic procedures. Performed By: #### DR EVELYN ELLISON, HCGMK ####[place] [facility] [place] [place] [place] [address] Methadone, Ur Negative Normal [facility] S ystem Comment on above: Performed By: #### DR EVELYN ELLISON, HCGUR ####[place] [address] [facility] [place] [place] [address] Opiates, Ur Negative Normal [facility] stem Comment on above: Performed By: #### DR EVELYN ELLISON, HCGMK ####[place] [address] [place] [place] [address] Benzodiazepines, Ur Negative Normal [facility] Comment on above: Performed By: #### DR EVELYN ELLISON, HCGMK ####[place] [address] [place] [place] [address] Amphetamines, Ur Negative Normal [facility] System Comment on above: Performed By: #### DR EVELYN ELLISON, HCGUR ####[address] [place], [place] [address] Barbiturates, Ur Negative Normal [facility] Comment on above: Performed By: #### DR EVELYN ELLISON, HCGUR ####[facility] [address] [place], [place] [address] Oxycodone/Oxymorphine,Ur Negative Normal [facility] Comment on above: Performed By: #### DR EVELYN ELLISON, HCGUR ####[place] [place], [place] [address] Hemogram w/ Autodiff on 04-29-2018 Abs Baso Cnt 0.1 10*3/uL Normal 0.0-0.2 [facility] stem Comment on above: Performed By: #### HEMDF, CM P3, QWAL, ETOH4 ####[facility] [address] [place] [address] Basophils/100 WBC Auto (Bld) 1.1 % Normal 0.0-2.0 [facility] Comment on above: Performed By: #### HEMDF, CM P3, QWAL, ETOH4 ####[facility] [address] [place] [address] Eosinophils 0.3 10*3/uL Normal 0.0-0.5 [facility] stem Comment on above: Performed By: #### HEMDF, CM P3, QWAL, ETOH4 ####[facility] [address] [place] [address] Eosinophils/100 leukocytes 3.3 % Normal 1.0-6.0 [facility] Comment on above: Performed By: #### HEMDF, CM P3, QWAL, ETOH4 ####[facility] [address] [place] [address] Erythrocyte distribution width Auto Ratio 14.8 % High 11.5-14.5 [facility] (RBC) Comment on above: Performed By: #### HEMDF, CM P3, QWAL, ETOH4 ####[facility] [address] [place], [place] Erythrocytes (RBC) 4.26 10*6/uL Normal 3.80-5.20 [facility] Comment on above: Performed By: #### HEMDF, CM P3, QWAL, ETOH4 ####[facility] [address] [place], [place] Granulocytes/100 WBC (Bld) 54.6 % Normal 40.0-80.0 [facility] Comment on above: Performed By: #### HEMDF, CM P3, QWAL, ETOH4 ####[facility] [address] Hematocrit (HCT) 42.5 % Normal 35.0-47.0 [facility] Comment on above: Performed By: #### HEMDF, CM P3, QWAL, ETOH4 ####[facility] [address] Hemoglobin mass conc (Bld) 14.1 g/dL Normal 11.7-16.0 [facility] Comment on above: Performed By: #### HEMDF, CM P3, QWAL, ETOH4 ####[facility] [address] Lymphocytes 3.1 10*3/uL Normal 1.0-4.3 [facility] Sy stem Comment on above: Performed By: #### HEMDF, CM P3, QWAL, ETOH4 ####[facility] [address] [place], [place] Lymphocytes/100 leukocytes 32.8 % Normal 20.0-40.0 [facility] Comment on above: Performed By: #### HEMDF, CM P3, QWAL, ETOH4 ####[facility] [address] MCH 33.1 pg Normal 26.0-34.0 [facility] Sy stem Comment on above: Performed By: #### HEMDF, CM P3, QWAL, ETOH4 ####[facility] [address] MCHC mass conc (RBC) 33.2 % Normal 32.0-36.0 [facility] Comment on above: Performed By: #### HEMDF, CM P3, QWAL, ETOH4 ####[address] [place] [address] MCV 99.8 fL High 79.0-98.0 [facility] Sy stem Comment on above: Performed By: #### HEMDF, CM P3, QWAL, ETOH4 ####[place] [address] [facility] [place] [place] Monocytes 0.8 10*3/uL Normal 0.0-0.8 [facility] Sy stem Comment on above: Performed By: #### HEMDF, CM P3, QWAL, ETOH4 ####[place] [address] [facility] [place] [address] Monocytes/100 leukocytes 8.2 % Normal 2.0-10.0 [facility] Comment on above: Performed By: #### HEMDF, CM P3, QWAL, ETOH4 ####[facility] [address] [facility] [place] Neutrophils 5.2 10*3/uL Normal 1.8-7.0 [facility] Sy stem Comment on above: Performed By: #### HEMDF, CM P3, QWAL, ETOH4 ####[facility] [address] [place] [address] Platelet mean volume (PMV) 8.5 fL Normal 7.4-10.4 [facility] Comment on above: Performed By: #### HEMDF, CM P3, QWAL, ETOH4 ####[facility] [address] [place] [address] Platelets 380 10*3/uL Normal 140-440 [facility] Sy stem Comment on above: Performed By: #### HEMDF, CM P3, QWAL, ETOH4 ####[facility] [address] [facility] [address] WBC (Leukocytes) 9.6 10*3/uL Normal 3.6-10.7 [facility] Comment on above: Performed By: #### HEMDF, CM P3, QWAL, ETOH4 ####[facility] [address] [place] [address] Urinalysis,Macro on 04-29-2018 Bilirubin (direct) Negative Normal Negative [facility] Comment on above: Performed By: #### DR EVELYN ELLISON, HCGUR ####[facility] [place], [place] [address] Ketone,Urine Negative Normal Negative [facility] stem Comment on above: Performed By: #### DR EVELYN ELLISON, HCGUR ####[place] [place], [place] [address] Occult Blood,Ur Negative Normal Negative [facility] Comment on above: Performed By: #### DR EVELYN ELLISON, HCGUR ####[place] [address] [place], [place] [address] Specific [place],Urine 1.015 Normal 1.005-1.030 [facility] Comment on above: Performed By: #### DR EVELYN ELLISON, HCGUR ####[facility] [address] [place], [place] [address] Total Protein,Urine Negative Normal Negative [facility] Comment on above: Performed By: #### DR EVELYN ELLISON, HCGUR ####[place] [address] [place], [place] [address] Urine, appearance clear Normal Clear [facility] Comment on above: Performed By: #### DR EVELYN ELLISON, HCGUR ####[place] [address] [place], [place] [address] Urine, color yellow Normal Lt. Yellow [facility] stem Comment on above: Performed By: #### DR EVELYN ELLISON, HCGUR ####[place] [address] [place], [place] [address] Urine, glucose presence NORM Normal Negative [facility] Comment on above: Performed By: #### DR EVELYN ELLISON, HCGUR ####[facility] [address] [place], [place] [address] Urine, nitrite presence Negative Normal Negative [facility] Comment on above: Performed By: #### DR EVELYN ELLISON, HCGUR ####[address] [place], [place] [address] Urine, pH 5.0 Normal 5.0-8.0 [facility] Sy stem Comment on above: Performed By: #### DR EVELYN ELLISON, HCGUR ####[address] [place], [place] [address] Urine, urobilinogen NORM Normal 0-1 [facility] Comment on above: Performed By: #### DR EVELYN ELLISON, HCGUR ####[address] [place], [place] [address] WBC (Leukocytes) Negative Normal Negative [facility] Comment on above: Performed By: #### DR EVELYN ELLISON, HCGUR ####[facility] [address] [place], [place] [address] hCG Qual Preg on 04-29-2018 hCG Qual Preg QUESTIONABLE Abnormal [facility] ystem Comment on above: Result Comment: REF RANGE:Ne gative .... < 3Questionable Rpt 48-72 HrPositive ..... > 10 Performed By: #### HEMDF, CM P3, QWAL, ETOH4 ####[address] [place] [address] Vital Signs Date Time Vital Sign Value Performing Facility Clinician 01-01-2023 Diastolic blood 83 mm[Hg] Oly 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LINDA [facility] 14: pressure Work Phone: 01-01-2023 Heart rate 85 /min Oly 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.LINDA [facility] 14: Work Phone: 01-01-2023 Systolic blood 170 mm[Hg] Oly 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.LINDA [facility] 14:08 pressure Work Phone: 01-01-2023 Body weight 58.06 kg Oly 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.LINDA [facility] 13:090500 Work Phone: 01-01-2023 Respiratory rate 22 /min Oly 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.[facility] 13:0500 Work Phone: 01-01-2023 SaO2% (BldA) [Mass 97 % Oly 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.[facility] 13:0500 fraction] Work Phone: 12-23-2022 Diastolic Blood [address] JOSE ROBERTO COMBS MD [facility] 16:29-0500 Pressure Non-Invasive Work Phone: [facility] 12-23-2022 Heart rate 84 /min DR JOSE ROBERTO COMBS MD [facility] 16:29-0500 [facility] 12-23-2022 Respiratory rate 16 /min DR JOSE ROBERTO COMBS MD [facility] 16:29-0500 [facility] 12-23-2022 Systolic Blood [address] JOSE ROBERTO COMBS MD [facility] 16:29-0500 Pressure Non-Invasive Work Phone: [facility] 12-23-2022 Diastolic Blood [address] JOSE ROBERTO COMBS MD [facility] 14:43-0500 Pressure Non-Invasive Work Phone: [facility] 12-23-2022 Heart rate 82 /min DR JOSE ROBERTO COMBS MD [facility] [id number] [facility] 12-23-2022 Respiratory rate 18 /min DR JOSE ROBERTO COMBS MD [facility] 14:43-0500 [facility] 12-23-2022 Systolic Blood [address] JOSE ROBERTO COMBS MD [facility] 14:43-0500 Pressure Non-Invasive Work Phone: [facility] 12-23-2022 Body temperature 96.98 [degF] DR JOSE ROBERTO COMBS MD [facility] 13:50-0500 [facility] 12-23-2022 Diastolic Blood [address] JOSE ROBERTO COMBS MD [facility] 13:50-0500 Pressure Non-Invasive Work Phone: [facility] 12-23-2022 Heart rate 89 /min DR JOSE ROBERTO COMBS MD [facility] 13:50-0500 [facility] 12-23-2022 Respiratory rate 18 /min DR JOSE ROBERTO COMBS MD [facility] 13:50-0500 [facility] 12-23-2022 Systolic Blood [address] JOSE ROBERTO COMBS MD [facility] 13:50-0500 Pressure Non-Invasive Work Phone: [facility] 11-26-2022 Body weight 57.61 kg Salima Asher MD [facility] 12:48-0500 Work Phone: 11-26-2022 Diastolic blood 84 mm[Hg] Salima Asher MD [facility] 12:48-0500 pressure Work Phone: 11-26-2022 Heart rate 98 /min Salima Asher MD [facility] 12:48-0500 Work Phone: 11-26-2022 Respiratory rate 20 /min Salima Asher MD [facility] 12:48-0500 Work Phone: 11-26-2022 SaO2% (BldA) [Mass 99 % Salima Asher MD [facility] 12:48-0500 fraction] Work Phone: 11-26-2022 Systolic blood 120 mm[Hg] Salima Asher MD [facility] 12:48-0500 pressure Work Phone: 10-26-2022 Diastolic Blood 93 1 JEOVANY TAYLOR MD [facility] 19:30-0500 Pressure Non-Invasive Work Phone: [facility] 10-26-2022 Heart rate 97 /min JEOVANY TAYLOR MD [facility] 19:30-0500 [facility] 10-26-2022 Respiratory rate 20 /min JEOVANY TAYLOR [facility] 19:30-0500 [facility] 10-26-2022 Systolic Blood 167 1 JEOVANY TAYLOR MD [facility] 19:30-0500 Pressure Non-Invasive Work Phone: [facility] 10-26-2022 Diastolic Blood 92 1 JEOVANY TAYLOR [facility] 19:00-0500 Pressure Non-Invasive Work Phone: [facility] 10-26-2022 Heart rate 93 /min JEOVANY TAYLOR MD [facility] 19:00-0500 [facility] 10-26-2022 Respiratory rate 18 /min JEOVANY TAYLOR [facility] 19:00-0500 [facility] 10-26-2022 Heart rate 94 /min JEOVANY TAYLOR MD [facility] 18:37-0500 [facility] 10-26-2022 Respiratory rate 22 /min JEOVANY TAYLOR [facility] 18:37-0500 [facility] [facility] 10-26-2022 Diastolic Blood 82 1 JEOVANY TAYLOR [facility] 18:31-0500 Pressure Non-Invasive Work Phone: [facility] 10-26-2022 Systolic Blood 153 1 JEOVANY TAYLOR MD [facility] 18:31-0500 Pressure Non-Invasive Work Phone: [facility] 10-26-2022 Body temperature 96.8 [degF] JEOVANY TAYLOR [facility] 16:25-0500 [facility] 10-02-2022 Body height 162.1 cm Tawny Self [facility] 10:02-0500 Work Phone: 10-02-2022 Body weight 58.97 kg Tawny eSlf DO [facility] 10: Work Phone: 10-02-2022 Diastolic blood 87 mm[Hg] [facility]wny [facility] 10:050 pressure Work Phone: 10-02-2022 Heart rate 86 /min Tawny Self DO [facility] 10:0500 Work Phone: 10-02-2022 SaO2% (BldA) [Mass 96 % Tawny Self DO [facility] 10: fraction] Work Phone: 10-02-2022 Systolic blood 155 mm[Hg] Tawny Self DO [facility] 10: pressure Work Phone: 09-05-2022 Body weight 59.88 kg Ulises [facility] 16: Work Phone: 09-05-2022 Diastolic blood 82 mm[Hg] Ulises Hermosillo MD [facility] 16: pressure Work Phone: 09-05-2022 Heart rate 95 /min Ulises [facility] 16: Work Phone: 09-05-2022 SaO2% (BldA) [Mass 98 % [facility] 16: fraction] Work Phone: 09-05-2022 Systolic blood 132 mm[Hg] [facility]ises [facility] 16: pressure Work Phone: 08-31-2022 Body weight 58.51 kg Oly 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.[facility] 13: Work Phone: 08-31-2022 Diastolic blood 82 mm[Hg] Oly 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 [facility] 13: pressure Work Phone: 08-31-2022 Heart rate 86 /min Oly 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.[facility] 13: Work Phone: 08-31-2022 Respiratory rate 18 /min Oly 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.[facility] 13: Work Phone: 08-31-2022 Systolic blood 125 mm[Hg] Oly 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.[facility] 13: pressure Work Phone: 07-31-2022 Body weight 60.33 kg Savanna Kenny APRN.[facility] 14: Work Phone: 07-31-2022 Diastolic blood 82 mm[Hg] Savanna Kenny APRN.[facility] 14: pressure Work Phone: 07-31-2022 Heart rate 89 /min Savanna Kenny APRN.[facility] 14: Work Phone: 07-31-2022 SaO2% (BldA) [Mass 98 % Savanna Kenny APRN.[facility] 14: fraction] Work Phone: 07-31-2022 Systolic blood 148 mm[Hg] Savanna Kenny APRN.[facility] 14: pressure Work Phone: 06-06-2022 Body height 162.1 cm Margaret Shrestha MD [facility] 10: Work Phone: 06-06-2022 Body weight 58 kg Margaret Shrestha MD [facility] 10: Work Phone: 06-06-2022 Diastolic blood 84 mm[Hg] Margaret Shrestha MD [facility] 10: pressure Work Phone: 06-06-2022 Heart rate 77 /min Margaret Shrestha MD [facility] 10: Work Phone: 06-06-2022 SaO2% (BldA) [Mass 96 % Margaret Shrestha MD [facility] 10:11040 fraction] Work Phone: 06-06-2022 Systolic blood 173 mm[Hg] [facility] 10:110400 pressure Work Phone: 05-11-2022 Body weight 58.06 kg Ulises [facility] 13:400400 Work Phone: 05-11-2022 Diastolic blood 78 mm[Hg] Ulises Hermosillo MD [facility] 13:400400 pressure Work Phone: 05-11-2022 Heart rate 99 /min Ulises [facility] 13:400400 Work Phone: 05-11-2022 Respiratory rate 24 /min Ulises Hermosillo MD [facility] 13:400400 Work Phone: 05-11-2022 SaO2% (BldA) [Mass 95 % Ulises Hermosillo MD [facility] 13:400400 fraction] Work Phone: 05-11-2022 Systolic blood 118 mm[Hg] Ulises Hermosillo MD [facility] 13:400400 pressure Work Phone: 05-05-2022 Respiratory rate 16 /min DR BETINA GODDARD MD [facility] 10:56-0400 Wo rk 05-05-2022 Body temperature 97.7 [degF] DR BETINA GODDARD MD [facility] 10:48-0400 Wo rk 05-05-2022 Diastolic blood 75 mm[Hg] DR BETINA GODDARD MD [facility] 10:48-0400 pressure Wo rk 06-25-2022 Heart rate 76 /min DR BETINA GODDARD MD [facility] 10:48-0400 Wo rk 05-05-[address] BETINA GODDARD MD [facility] 10:48-0400 VItal Signs Wo rk 05-05-2022 Respiratory rate 16 /min DR BETINA GODDARD MD [facility] 10:48-0400 Wo rk 05-05-2022 Systolic blood 116 mm[Hg] DR BETINA GODDARD MD [facility] 10:48-0400 pressure Wo rk 05-05-2022 Body temperature 97.88 [degF] DR BETINA GODDARD MD [facility] 07:33-0400 Wo rk 05-05-2022 Diastolic blood 71 mm[Hg] DR BETINA GODDARD MD [facility] 07:33-0400 pressure Wo rk 05-05-2022 Heart rate 71 /min DR BETINA GODDARD MD [facility] 07:33-0400 Wo rk 05-05-2022 Mean blood pressure 88 mm[Hg] DR BETINA GODDARD MD [facility] 07:33-0400 Wo rk 05-05-[address] BETINA GODDARD MD [facility] 07:33-0400 VItal Signs Wo rk 05-05-2022 Respiratory rate 16 /min DR BETINA GODDARD MD [facility] 07:33-0400 Wo rk 05-05-2022 Systolic blood 122 mm[Hg] DR BETINA GODDARD MD [facility] 07:33-0400 pressure Wo rk 05-05-2022 Heart rate 77 /min DR BETINA GODDARD MD [facility] 06:43-0400 Wo rk 05-04-2022 Diastolic blood 64 mm[Hg] DR BETINA GODDARD MD [facility] 23:22-0400 pressure Wo rk 05-04-2022 Systolic blood 124 mm[Hg] DR BETINA GODDARD MD [facility] 23:22-0400 pressure Wo rk 05-04-2022 Body temperature 98.42 [degF] DR BETINA GODDARD MD [facility] 20:59-0400 Wo rk 05-04-2022 Heart rate 73 /min DR BETINA GODDARD MD [facility] 20:59-0400 Wo rk 05-04-2022 Mean blood pressure 92 mm[Hg] DR BETINA GODDARD MD [facility] 14:47-0400 Wo rk 05-04-[address] BETINA GODDARD MD [facility] 14:47-0400 VItal Signs Wo rk 05-04-2022 Heart rate 81 /min DR BETINA GODDARD MD [facility] 01:040400 Wo rk 05-04-2022 Mean blood pressure 85 mm[Hg] DR BETINA GODDARD MD [facility] 01:04-0400 Wo rk 05-03-2022 Heart rate 94 /min DR BETINA GODDARD MD [facility] 19:06-0400 Wo rk 05-03-2022 Heart rate 82 /min DR BETINA GODDARD MD [facility] 14:51-0400 Wo rk 05-02-2022 Body height 165.[address] BETINA GODDARD MD [facility] 09:53-0400 Wo rk 05-02-2022 Body weight [address] BETINA GODDARD MD [facility] 09:53-0400 Wo rk 05-02-2022 Body weight 22.01 kg/m2 DR BETINA GODDARD MD [facility] 09:53-0400 Wo rk 05-02-2022 Diastolic blood 86 mm[Hg] [facility] 06:28-0400 pressure Wo rk 05-02-2022 Heart rate 92 /min [facility] 06:28-0400 Wo rk 05-02-2022 Respiratory rate 20 /min [facility] 06:28-0400 Wo rk 05-02-2022 Systolic blood 131 mm[Hg] [facility] 06:28-0400 pressure Wo rk 05-02-2022 Diastolic blood 82 mm[Hg] [facility] 04:25-0400 pressure Wo rk 05-02-2022 Heart rate 95 /min [facility] 04:25-0400 Wo rk 05-02-2022 Mean blood pressure 98 mm[Hg] [facility] 04:25-0400 Wo rk 05-02-2022 Respiratory rate 22 /min [facility] 04:25-0400 Wo rk 05-02-2022 Systolic blood 129 mm[Hg] [facility] 04:25-0400 pressure Wo rk 05-02-2022 Diastolic blood 84 mm[Hg] [facility] 03:42-0400 pressure Wo rk 05-02-2022 Heart rate 98 /min [facility] 03:42-0400 Wo rk 05-02-2022 Mean blood pressure 99 mm[Hg] [facility] 03:42-0400 Wo rk 05-02-2022 Respiratory rate 24 /min [facility] 03:42-0400 Wo rk 05-02-2022 Systolic blood 130 mm[Hg] [facility] 03:42-0400 pressure Wo rk 05-02-2022 Body temperature 98.24 [degF] [facility] 03:12-0400 Wo rk 05-02-2022 Heart rate 130 /min [facility] 03:12-0400 Wo rk 05-02-2022 Heart rate 124 /min [facility] 03:11-0400 Wo rk 04-30-2022 Body weight 57.61 kg Tracy Ramires APRN.[facility] 15:40-0400 Work Phone: 04-30-2022 Diastolic blood 75 mm[Hg] Tracy Ramires APRN.[facility] 15:40-0400 pressure Work Phone: 04-30-2022 Heart rate 83 /min Tracy Ramires APRN.[facility] 15:40-0400 Work Phone: 04-30-2022 Systolic blood 138 mm[Hg] Tracy Ramires APRN.[facility] 15:40-0400 pressure Work Phone: 03-13-2022 Body height 165.1 cm Savanna Kenny APRN.[facility] 13:590400 Work Phone: 03-13-2022 Body weight 60.92 kg Savanna Kenny APRN.[facility] 13:590400 Work Phone: 03-13-2022 Diastolic blood 76 mm[Hg] Savanna Kenny APRN.[facility] 13:59-0400 pressure Work Phone: 03-13-2022 Heart rate 81 /min Savanna Baemakenna TORRES.[facility] 13:59-0400 Work Phone: 03-13-2022 SaO2% (BldA) [Mass 96 % Savanna Kenny MELISSA.[facility] 13:59-0400 fraction] Work Phone: 03-13-2022 Systolic blood 157 mm[Hg] Savanna Baemakenna TORRES.[facility] 13:59-0400 pressure Work Phone: Encounters Encounter Date Encounter Type Care Provider Facility Start: 01-01-2023 Patient encounter Oly Smith APRN.[facility] Internal Medicine End: 01-01-2023 procedure Work Phone: [place] Comment on above: Alcohol withdrawal syndrome without complication (HCC) (Primary Dx) Start: 01-01-2023 Telephone encounter Diana mcclain Psychology Work Phone: Comment on above: Behavioral Health Social Wor k Start: 12-23-2022 Emergency department JOSE ROBERTO COMBS MD Fac ility:B End: 12-23-2022 patient visit Start: 12-23-[address] JOSE ROBERTO COMBS MD [facility] End: 12-23-2022 patient visit Work P nayeli: Start: 12-14-2022 Refill Ulises Hermosillo MD [facility] edicine Work Phone: [facility] Comment on above: Refill Request Start: 11-26-2022 ambulatory SALIMA ASHER Facility:[facility] End: 11-26-2022 Hospital Start: 11-26-2022 [facility] End: 11-26-2022 procedure Work Phone: Comment on above: Hemoptysis (Primary Dx); Stage 3 severe COPD by GOLD classification (HCC); Cigarette smoker Start: 10-26-2022 Emergency department [facility] Facility :B End: 10-26-2022 patient visit Start: 10-26-2022 Emergency department JEOVANY TAYLOR MD [facility] End: 10-26-2022 patient visit Work P nayeli: Start: 10-02-2022 ambulatory TAWNY Das SELF Facility:[facility] End: 10-02-2022 [facility] Start: 10-02-2022 Patient encounter Tawny Self DO Vascular Surgery End: 10-02-2022 procedure Work Phone: Comment on above: PAD (peripheral artery disea se) ([facility]) Start: 09-25-2022 ambulatory TAWNY SELF Facility:[facility] End: 09-25-2022 Hospital Start: 09-21-2022 Telephone encounter Tawny Self DO Vascul gabriel Surgery Work Phone: Comment on above: Patient Question Start: 09-19-2022 Telephone encounter Tawny Self DO Vascul ar Surgery Work Phone: Comment on above: Orders Start: 09-05-2022 Patient encounter Ulises Hermosillo MD Football Pad Repairer al Medicine End: 09-05-2022 procedure Work Phone: [place] Comment on above: Thrush (oral) (Primary Dx); Prediabetes; Essential hypertension Start: 09-05-2022 ambulatory Ulises Hermosillo MD Internal Medicine [place] End: 09-05-2022 Work Phone: Comment on above: Mouth/Lip Problem Start: 08-31-2022 ambulatory OLY SMITH Facility:[facility] End: 08-31-2022 Hospital Start: 08-31-2022 Patient encounter Oly Smith Z OS MAINFRAME SYSTEMS PROGRAMMER.[facility] Internal Medicine [place] End: 08-31-2022 procedure Work Phone: Comment on above: Situational anxiety (Primary Dx); Allergic conjunctivitis of b oth eyes; Recurrent major depression i n partial remission (HCC); Essential hypertension; Coronary artery disease invo lving [place] coronary artery of [place] heart without angina pectoris; Chronic bronchitis, unspecif ied chronic bronchitis type (HCC); Encounter for immunization; Mixed hyperlipidemia; Lung nodule; Screening for osteoporosis; Asymptomatic menopause Start: 08-13-2022 Telephone encounter Ulises Hermosillo MD Inte [facility] Medicine Work Phone: [place] Comment on above: Patient Update Start: 08-02-2022 Telephone encounter Tawny Self DO Vascul ar Surgery Work Phone: Comment on above: Appointment Start: 07-31-2022 ambulatory SAVANNA GUILLEN Facility:[facility] End: 07-31-2022 [facility] Start: 07-31-2022 [facility] Z OS MAINFRAME SYSTEMS PROGRAMMER.CN P Pulmonary Medicine End: 07-31-2022 procedure Work Phone: Comment on above: Lung nodules (Primary Dx); Current smoker Start: 07-26-2022 ambulatory UNKNOWN PROVIDER Facility:[facility] Start: 07-20-2022 Refill Ulises Hermosillo MD Internal Medicine [place] Work Phone: Comment on above: Refill Request Start: 07-13-2022 Telephone encounter Tawny Self DO Vascul ar Surgery Work Phone: Comment on above: Appointment Start: 07-09-2022 ambulatory MARGARET SHRESTHA Facility:[facility] End: 07-10-2022 Hospital Start: 07-09-2022 ambulatory Respiratory Therapist [facility] Pulmonary Medicine End: 07-09-2022 Work Phone: Comment on above: Arrived Start: 07-09-2022 Patient encounter Respiratory Therapist [facility] End: 07-09-2022 procedure Work Phone: Start: 07-06-2022 Telephone encounter [facility] Work Phone: Comment on above: Orders Start: 06-14-2022 Refill Ulises Hermosillo MD Internal Medicine [place] Work Phone: Comment on above: Refill Request Start: 06-06-2022 ambulatory MARGARET SHRESTHA Facility:[facility] End: 06-06-2022 Hospital Start: 06[facility] End: 06-06-2022 Work Phone: Comment on above: Spirometry Start: 06-06-2022 Patient encounter Pulm [facility]ct [facility] End: 06-06-2022 procedure Work Phone: Comment on above: Asthma-COPD overlap syndrome (HCC) (Primary Dx); Wheezing; Smoking Start: 06-04-2022 Telephone encounter Ulises Hermosillo MD Inte rnal Medicine Work Phone: [place] Comment on above: Aerochamber spacer Start: 05-31-2022 Telephone encounter Ulises Hermosillo MD Inte rnal Medicine Work Phone: [place] Comment on above: Orders Start: 05-30-2022 Orders Only Savanna Kenny APRN.FISH HATCHERY WORKER Pulmonary Medicine Work Phone: Comment on above: Tobacco use disorder (Primar y Dx) Smoker (Primary Dx); Encounter for screening for malignant neoplasm of lung Start: 05-28-2022 Refill Tracy Ramires APRN.FISH HATCHERY WORKER Cardi ology Work Phone: Comment on above: Refill Request Start: 05-25-2022 Refill Ulises Hermosillo MD Internal Medicine [place] Work Phone: Comment on above: Refill Request Start: 05-23-2022 Telephone encounter Tracy Ramires APRN.FISH HATCHERY WORKER C ardiology Work Phone: Comment on above: Results Start: 05-21-2022 ambulatory TRACY RAMIRES Facility[facility] End: 05-21-2022 Hospital Start: 05-21-2022 Patient encounter Echocardiogram Wstr Cardiolo gy End: 05-21-2022 procedure Work Phone: Comment on above: DIAZ (dyspnea on exertion) Start: 05-11-2022 ambulatory ULISES HERMOSILLO Facility:[facility] End: 05-11-2022 Hospital Start: 05-11-2022 Patient encounter Ulises Hermosillo MD Football Pad Repairer al Medicine [place] End: 05-11-2022 procedure Work Phone: Comment on above: Chronic bronchitis, unspecif ied chronic bronchitis type (HCC) (Primary Dx); Recurrent major depression i n partial remission (HCC); Gastroesophageal reflux dise ase, unspecified whether esophagitis present; Need for vaccination; Bipolar affective disorder, current episode mixed, current episode severity unspecified (HCC); PAD (peripheral artery disea se) (HCC) Start: 05-07-2022 Refill Ulises Hermosillo MD Internal Medicine [place] Work Phone: Comment on above: Refill Request Start: 05-02-2022 Evaluation and BETINA GODDARD MD Facility:A End: 05-05-2022 management of inpatient Start: 05-02-[address] BETINA GODDARD MD [facility] End: 05-05-2022 management of inpatient Work Phone: Start: 05-02-2022 Emergency department [facility] Facility :B End: 05-02-2022 patient visit Start: 05-02-2022 Emergency department [facility] End: 05-02-2022 patient visit Work P nayeli: Start: 04-30-2022 ambulatory TRACY RAMIRES Facility:[facility] End: 04-30-2022 [facility] Start: 04-30-2022 Patient encounter Tracy Ramires Z 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 Car diology End: 04-30-2022 procedure Work Phone: Comment on above: DIAZ (dyspnea on exertion) (P rimary Dx); Essential hypertension; Coronary artery disease invo lving [place] coronary artery of [place] heart without angina pectoris; Mixed hyperlipidemia; Smoker; Stenosis of carotid artery, unspecified laterality Start: 04-03-2022 Refill Ulises Hermosillo MD Internal Medicine [place] Work Phone: Comment on above: Refill Request Start: 03-16-2022 Refill Eri Peguero APRN.C SEPARATOR OPERATOR [employer] Pulmonary Medicine Work Phone: Comment on above: Refill Request Start: 03-13-2022 ambulatory SAVANNA VANDANANATHANAEL Facility:[facility] End: 03-13-2022 [facility] Start: 03-13-2022 Patient encounter Savanna Kenny APRN.CN P Pulmonary Medicine End: 03-13-2022 procedure Work Phone: Comment on above: Dyspnea on exertion (Primary Dx); Smoker; Encounter for screening for malignant neoplasm of lung Start: 03-01-2022 Refill Oly 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.LINDA Internal Me dylan Phelan Work Phone: Comment on above: Refill Request Start: 12-05-2021 ambulatory TRACY E KEYLA Facility:[facility] Start: 10-10-2021 ambulatory ULISES [facility] Start: 08-14-2021 ambulatory [facility] E [facility] Start: 08-14-2021 ambulatory [facility]Y E KEYLA [facility] Start: 04-29-2018 Emergency department UNKNOWN PROVIDER [facility] patient visit Procedures Date Procedure Procedure Detail Performing Clin ician Start: 08-31-2022 INFLUENZA SEASONAL Oly Older A PRN.FISH HATCHERY WORKER QUADRIVALENT HIGH DOSE AGE Work Phone: 65+ Start: 07-09-2022 Noninvasive ear/pulse Margaret Shrestha MD oximetry multiple deter Work Steven ne: Start: 06-06-2022 Brncdilat rspse spmtry Savanna Kenny Z 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 pre&post-brncdilat admn Work Steven ne: Start: 05-21-2022 Echo tthrc r-t 2d Tracy E Ne abimbola Z 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 w/wom-mode compl spec&colr Work Phone: d Start: 04-03-2017 Colonoscopy Oly 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 .LINDA Work Phone: Cervical (qualifier value) ALETHA [facility] DO Work Phone: Comment on above: replacement of 2 discs Cholecystectomy EMMANUEL [facility] DO Work Phone: Cholecystocecostomy EMMANUEL WHEELER DO Work Phone: Hysterectomy EMMANUEL KILLIAN DO Work Phone: None (qualifier value) EMMANUEL QUICK DO Work Phone: Tonsillectomy EMMANUEL KILLIAN DO Work Phone: Upper limb structure (body structure) EMMANUEL KILLIAN DO Work Phone: Comment on above: left Plan of Treatment Date Care Activity Detail Author Start: 04-03-2027 Colonoscopy COLONOSCOPY [facility] ic Start: 04-03-2027 COLORECTAL CANCER COLORECTAL CANCER [facility] SCREENING SCREENING Start: 09-27-2026 LIPID SCREEN LIPID SCREEN [facility] ic Start: 10-19-2024 DIABETES SCREEN DIABETES SCREEN [facility] ic Start: 01-01-2024 ANNUAL PCP TEAM CHRONIC ANNUAL PCP TEAM CHRONI C [facility] DISEASE VISIT DISEASE VISIT Start: 09-05-2023 ANNUAL PCP TEAM CHRONIC ANNUAL PCP TEAM CHRONI C [facility] DISEASE VISIT DISEASE VISIT Start: 08-31-2023 ANNUAL PCP TEAM CHRONIC ANNUAL PCP TEAM CHRONI C [facility] DISEASE VISIT DISEASE VISIT Start: 08-31-2023 COVID-19 VACCINE (2 - COVID-19 VACCINE (2 - [facility] Pfizer series) Pfizer series) Comment on above: Postponed from 12/12/2021 (D eclined at this time) Start: 08-31-2023 SHINGRIX VACCINE (1 of 2) SHINGRIX VACCINE (1 of 2) [facility] Comment on above: Postponed from 2005 (D eclined at this time) Start: 08-31-2023 Urine microalbumin profile DTAP,TDAP,TD (1 - T dap) [facility] Comment on above: Postponed from 1974 (D eclined at this time) Start: 07-26-2023 Influenza vaccination LUNG CANCER SCREENING [facility] Start: 05-11-2023 ANNUAL PCP TEAM ANNUAL PCP TEAM CHRONIC [facility] CHRONIC DISEASE VISIT DISEASE VISIT Start: 05-11-2023 BP CONTROLLED BP CONTROLLED (<130/80) [facility] (<130/80) Start: 04-21-2023 PNEUMOVAX AGE 65 AND PNEUMOVAX AGE 65 AND [facility] OVER WITH 5YR LOOKBACK OVER WITH 5YR LOOKBACK (#1) (#1) Start: 11-26-2022 Alpha 1 antitrypsin [id number] BL Lab C [facility] End: 01-26-2023 [Mass/volume] in Serum Routine Stage 3 severe Wo rk Phone: or Plasma COPD by GOLD classification (HCC) Expected: 11/26/2022, Expires: 01/26/2023 Comment on above: Expected: 11/26/2022, s: 01/26/2023 Start: 11-26-2022 CBC W Auto CBC + DIFF Lab [facility] End: 01-26-2023 Differential panel - Routine Hemoptysis Work Steven ne: Blood Expected: 11/26/2022, Expires: 01/26/2023 Comment on above: Expected: 11/26/2022, s: 01/26/2023 Start: 11-11-2022 ADVANCE DIRECTIVE ADVANCE DIRECTIVE [facility] DISCUSSION DISCUSSION Start: 10-19-2022 ANNUAL PCP TEAM ANNUAL PCP TEAM CHRONIC [facility] CHRONIC DISEASE VISIT DISEASE VISIT Start: 09-27-2022 Hepatitis B surface LDL CHOLESTEROL [facility] antibody level Start: 08-11-2022 CBC panel - Blood by CBC Lab Routine PAD [facility] End: 10-11-2022 Automated count (peripheral artery Work Phone: disease) (HCC) Expected: 08/11/2022, Expires: 10/11/2022 Comment on above: Expected: 08/11/2022, s: 10/11/2022 Start: 08-11-2022 Comprehensive metabolic COMP METABOLIC PANEL C [facility] End: 10-11-2022 2000 panel - Serum or Lab Routine PAD Work Phone : Plasma (peripheral artery disease) (HCC) Expected: 08/11/2022, Expires: 10/11/2022 Comment on above: Expected: 08/11/2022, s: 10/11/2022 Start: 08-11-2022 Lipid 1996 panel - LIPID PANEL BASIC Lab [facility] End: 10-11-2022 Serum or Plasma Routine PAD (peripheral Work Steven ne: artery disease) (HCC) Expected: 08/11/2022, Expires: 10/11/2022 Comment on above: Expected: 08/11/2022, s: 10/11/2022 Start: 07-12-2022 Influenza vaccination [facility] Start: 12-12-2021 COVID-19 VACCINE (2 - COVID-19 VACCINE (2 - [facility] Pfizer 3-dose series) Pfizer 3-dose series) Start: 12-12-2021 COVID-19 VACCINE (2 - COVID-19 VACCINE (2 - [facility] Pfizer series) Pfizer series) Start: 11-11-2021 ADVANCE DIRECTIVE ADVANCE DIRECTIVE [facility] DISCUSSION DISCUSSION Start: 01-06-2021 BP CONTROLLED (<130/80) BP CONTROLLED (<130/80 ) [facility] Start: 2020 BONE DENSITY BONE DENSITY [facility] Start: 04-21-2019 PNEUMOCOCCAL: 65+ (2 - PNEUMOCOCCAL: 65+ (2 - [facility] PCV) PCV) Start: 2010 Influenza vaccination LUNG CANCER SCREENING [facility] Start: 2005 Influenza vaccination LUNG CANCER SCREENING [facility] Start: 2005 SHINGRIX VACCINE (1 of SHINGRIX VACCINE (1 of [facility] 2) 2) Start: 2000 COLOGUARD (FIT-DNA) COLOGUARD (FIT-DNA) [facility] Start: [address] COLONOGRAPHY [facility] Start: 2000 FECAL OCCULT BLOOD FECAL OCCULT BLOOD [facility] Start: 2000 SIGMOIDOSCOPY SIGMOIDOSCOPY [facility] Start: 1985 Zoledronic acid therapy ALPHA-1 ANTITRYPSIN [facility] DEFICIENCY SCREENING Start: 1974 Urine microalbumin DTAP,TDAP,TD (1 - Tdap) [facility] profile Start: 1961 PNEUMOCOCCAL: 65+ (1 - PNEUMOCOCCAL: 65+ (1 - [facility] PCV) PCV) CT LUNG SCREEN WO IVCON CT LUNG SCREEN WO IVCON [place] End: 10-10-2022 Radiology Routine Work Phone: Smoker Encounter for screening for malignant neoplasm of lung 1 Occurrences starting 05/30/2022 until 10/10/2022 Comment on above: 1 Occurrences starting 05/30 until 10/10/2022 Dxa bone density DXA-AXIAL SKELETON [facility] End: 09-30-2023 study 1/> sites Radiology Routine Work Phone: axial skel Screening for osteoporosis Asymptomatic menopause 1 Occurrences starting 08/31/2022 until 09/30/2023 Comment on above: 1 Occurrences starting 08/31 until 09/30/2023 Echocardiography ECHO Cardiology Routine [facility] End: 04-30-2023 DIAZ (dyspnea on Work Phone: exertion) 1 Occurrences starting 04/30/2022 until 04/30/2023 Comment on above: 1 Occurrences starting 04/30 until 04/30/2023 LUNG DIFFUSION LUNG DIFFUSION [place] End: 04-12-2023 CAPACITY (DLCO) CAPACITY (DLCO) PFT Work Phone: Routine Dyspnea on exertion 1 Occurrences starting 03/13/2022 until 04/12/2023 Comment on above: 1 Occurrences starting 03/13 until 04/12/2023 OXIMETRY WITH OXIMETRY WITH [place] End: 08-05-2023 AMBULATION AMBULATION PFT Routine Work Phon e: SOB (shortness of breath) 1 Occurrences starting 07/06/2022 until 08/05/2023 Comment on above: 1 Occurrences starting 07/06 until 08/05/2023 PVR LEG SHERIN VAS PVR LEG SHERIN VAS LAB [facility] End: 05-11-2023 LAB Vascular Lab Routine PAD Work Ph one: (peripheral artery disease) (HCC) 1 Occurrences starting 05/11/2022 until 05/11/2023 Comment on above: 1 Occurrences starting 05/11 until 05/11/2023 PVR LEG SHERIN VAS PVR LEG SHERIN VAS LAB [facility] End: 09-21-2023 LAB Vascular Lab Routine Work Phone: Peripheral arterial disease (HCC) 1 Occurrences starting 09/21/2022 until 09/21/2023 Comment on above: 1 Occurrences starting 09/21 until 09/21/2023 PVR LEG SHERIN VAS PVR LEG SHERIN VAS LAB [facility] End: 10-02-2023 LAB Vascular Lab Routine PAD Work Ph one: (peripheral artery disease) (HCC) 1 Occurrences starting 10/02/2022 until 10/02/2023 Comment on above: 1 Occurrences starting 10/02 until 10/02/2023 Radiologic exam chest XR CHEST 2V [place] End: 12-26-2023 2 views FRONTAL/LAT Radiology Work Phone : Routine Hemoptysis 1 Occurrences starting 11/26/2022 until 12/26/2023 Comment on above: 1 Occurrences starting 11/26 until 12/26/2023 SPIROMETRY - BASELINE SPIROMETRY - BASELINE 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 [facility] quadrivalent vaccine Work Phone: (FLUZONE HIGH DOSE QUADRIVALENT) 05-11-2022 pneumococcal ConjugateUlises MD [place] unspecified formulation Work Phone: Work Phone: 05-11-2022 pneumococcal (PCV20) Ulises Hermosillo MD [facility] vaccine, 20 valent Work Phone: (PREVNAR 20) 11-21-2021 COVID-19 vaccine, age 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 (PFIZER-BIONTECH Work Phone: Work Phone: - [facility]) 08-23-2020 influenza, high-dose, 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.[facility] quadrivalent vaccine Work Phone: (FLUZONE HIGH DOSE QUADRIVALENT) 01-06-2020 influenza, injectable, Oly 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.[facility] quadrivalent, contains Work Phone: Work Phone: preservative 04-21-2018 pneumococcal Oly 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 MEDICAID [id number] 2021-Present [phone] [address] [place] [address] Medicaid 2021 Medicaid [id number] [address] [facility] MEDICAID [id number] 2021-Present [phone] [address] [place] [address] Medicaid 2021 Unknown 2021 Unknown [id number] 1955 Unknown [id number] 1955 Unknown [id number] 1955 Unknown [id number] 1955 Unknown [id number] Social History Date Type Detail Facility Start: 11-11-1966 Tobacco smoking status Smokes tobacco daily Cl [facility] End: 10-02-2022 [facility] Start: 11-11-1966 History of tobacco use Cigarette Smoker [facility] Start: 12-05-2021 Alcohol intake Current drinker of [facility] End: 01-01-2023 alcohol (finding) Start: 10-06-2019 History SDOH Alcohol 2 [facility] Frequency Start: 10-06-2019 History SDOH Alcohol 3 [facility] Std Drinks Start: 10-06-2019 Tobacco Comment down to 1ppd 10/06/19 [facility] Start: 1955 Sex Assigned At Not on file [facility] Start: 03-03-2022 Exposure to SARS-CoV-2 [facility] sure [facility] End: 08-31-2022 (event) Start: 06-14-2021 Tobacco smoking status Heavy tobacco smoker [facility] (finding) Work Phone: Sex Assigned At Sex [facility] Work Phone: Start: 04-24-2022 Exposure to SARS-CoV-2 Unable to assess [facility] End: 07-13-2022 (event) Work Phone: Start: 05-30-2022 Cigarettes smoked 2 [facility] End: 01-01-2023 current (pack per day) - Reported Start: 05-30-2022 Tobacco use and Smokeless tobacco [facility] End: 10-02-2022 exposure non-user Work Phone: Start: 07-31-2022 Tobacco Comment started age 10 - down [facility] to 1.5 ppd lately Start: 10-02-2022 Tobacco Comment started age 10 - down [facility] to 1.5 ppd lately, now down to 1 ppd Start: 11-26-2022 Alcohol intake Ex-drinker (finding) [facility] Start: 01-01-2023 History SDOH Alcohol 5 [facility] Frequency Medical Equipment Procedure Code Equipment Code Equipment Original Equipment Identifi er Dates Text Mzt-Ls-Z-Kind [id number] Start: Implant - [id number] Comment on above: Description: innova vascular sten Liner 36mm 0d E X3 5.9mm Acetabular Hip - [id number] Start: 03-25-2019 [id number] Shell 54mm E Hemispherical Tritanium Acet abular [id number] Start: 03-25-2019 Primary Rim Cluster Hole - [id number] Head V40 36mm 0mm Offset Taper Biolox Del ta Femoral [id number] Start: 03-25-2019 Hip - [id number] Stem Accolade Ii 6 127d Femoral - [id number] Start: 03-25-2019 Patch Xenosure Bovine Pericardial 14x1cm Vascular [id number] Start: 10-20-2019 Nonpyrogenic Sterile - [id number] Screw Trident Secur-Fit Torx 6.5mm Titani um 25mm [id number] Start: 03-25-2019 Bone Sterile Acetabular - [id number] Stent Innova 8mm 80mm 130cm Vascular Self Expand [id number] Start: 10-20-2019 Radiopaque Hybrid Cell - [id number] Functional Status Date Assessment Result Facility 12-23-2022 Functional Status Independent [facility] 12-23-2022 Functional Status Standard Safety ID band on, [facility] Call device within reach, Bed [place] in low position, Wheels locked, Upper/Half-Length side-rails up, Phone within reach, personal items within reach, Bedside Cart Locked 10-26-2022 Functional Status Independent [facility] 10-26-2022 Functional Status [facility] 05-05-2022 Functional Status Room located near nursing stat ion, [facility] Door open, Work Phone: Non-Slip footwear, Room check performed 05-05-2022 Functional Status [facility] Work Phone: 05-04-2022 Functional Status Ambulation in Room [facility] Work Phone: 05-04-2022 Functional Status Bath cloths [facility] Work Phone: 05-03-2022 Functional Status [facility] Work Phone: 05-02-2022 Functional Status Hospital bed [facility] Work Phone: 05-02-2022 Functional Status [facility] Work Phone: 05-02-2022 Functional Status Standard Safety ID band on, [facility] Call device within reach, Bed Wo rk in low position, Wheels locked, Upper/Half-Length side-rails up, Phone within reach, personal items within reach Mental Status Date Assessment Result Facility 12-23-2022 Mental Status Orientation Oriented x 4 [facility] 12-23-2022 Mental Status [facility] 10-26-2022 Mental Status Orientation Oriented x 4 [facility] 10-26-2022 Mental Status [facility] 05-05-2022 Mental Status Oriented x 4 [facility] Work Phone: 05-04-2022 Mental Status [facility] Work Phone: 05-04-2022 Mental Status [facility] Work Phone: 05-04-2022 Mental Status [facility] Work Phone: 05-02-2022 Mental Status Orientation Oriented x 4 [facility] Work Phone: Clinical Notes 07-07-2020 to 01-01-2023 Telephone Encounter - GIO Cardona - 01/01/2023 3:42 PM ESTPatient Ferny Smith APRN.LINDA - 01/01/2023 1:12 PM Aiden Asher MD - 11/26/2022 12:45 PM EST Note Date & Type Note Facility 01-01-2023 Miscellaneous Formatting of this note migh t be different from the original. [facility] Notes Behavioral Health Social Work Progress N ote Patient identified for [facility] from: PCP Reason for referral: Resources Behavioral Health Resources: Substance a buse [facility] encounter type: Telephone Encounter Attempts to Outreach: 1 attempt Referral made: Psychology - External Psychology-External referral type: Alcoh ol/Drug Treatment Reason for external referral : Patient seeking detention support, Patient needs services closer to home Final Disposition: Resources given Patient Discharged?: Yes Patient reported that caregiver was able to meet their needs today?: Yes SW placed telephone call at the request of the PCP to discuss behavioral health needs and provide referrals for outpatient support to assist with detox. Patient states she's been drinking since she was a teenager and has been to [facility] in the past, but has not been sober for long periods of time. Uses drinking as a coping mechanism to deal with anxiety and stress. Patient was able to write th e following resources down as places to call or look into for detoxification and substance abuse: [facility] [address] [place] [address] [id number] [facility] [address] [place] [address] [address], [place] [id number] Patient states she may end u p just going to [facility] if she can't find anywhere to go to assist as she really needs to detox. Advised to call these numbers and if additional assistance is needed to inform this SW. GIO Cardona January 01, 2023 documented in this encounter 01-01-2023 Instructions Oly Smith APRN.CNP - 2022 2:09 PM EST [facility] Alcohol abuse (alcoholism) i s common. More than 100 million people drink alcohol. 10-20% (1 or 2 out of 10) are considered alcoholics. When you drink too much and too often, your body gets addicted to a lcohol. When you stop drinki ng, you can have withdrawal symptoms. This is a serious problem that can be life-threatening. Alcohol abuse can ruin your life and the lives of those who care about you. Some alcohol withdrawal symptoms are: Insomnia (trouble sleeping), tremors (shaking), irritability and depression. You may feel fatigue (tired) and/or anxiety. Vomiting (throwing up) and d iarrhea (loose stool). You may have high blood pressure or palpitations (abnormal heart beats). Some SERIOUS SYMPTOMS are hallucinations (seeing/hearing YOU SHOULD SEEK MEDICAL ATTE NTION IMMEDIATELY, EITHER HERE OR AT THE NEAREST EMERGENCY DEPARTMENT, IF ANY OF THE FOLLOWING OCCURS: Uncontrollable shaking devel ops or you see/hear things that others do not see/hear (hallucinations). Thoughts of harming yourself (suicidal t houghts). Constant vomiting (3 or more episodes), blood in your vomit or stool. Blood in stool can be bright or dark red. It may be black and tarry if digested. You do not feel safe in your home environment. This means if you feel you are in danger of bodily harm or that you will start drinking again. documented in this encounter 01-01-2023 History of Present [facility] illness Narrative CC: Patient presents with: Follow Up HPI Vince Koenig is a 67 ye ar old female who presents today for 4 month follow-up however her main concern today is alcohol withdrawal. Patient states she started drinking heavily after the loss of her brother, son and dog. For t he past three months she has been drinking about 30-40 beers a week, sometimes more. Occasionally has about 1 quart of whiskey in one day. Hasn't had a drink since yesterday morning, had three beers. Si nce then she has been feeling anxious, tired, shaky, weak, and nauseated. Denies sweats, itching, numbness/tingling, burning or crawling sensations, visual or auditory halluc inations, headaches, seizure s, confusion or disorientation. She is interested inpatient alcohol detox but unsure where to go for this. Denies SI or HI. REVIEW OF SYSTEMS GENERAL: Negative for significant weight loss, fever, chills, night sweats RESPIRATORY: chronic SOB with exertion, cough and wheezing secondary to COPD. CARDIOVASCULAR: Negative for chest pain, leg swelling, palpitations, orthopnea, and paroxysmal nocturnal dyspnea PAST MEDICAL HISTORY Diagnosis Date Acute pancreatitis 2010 Anisha Cruz Alcohol use disorder 01/18/2016 [facility] Anxiety 12/14/2015 Bipolar affective disorder, currently ac tive ([facility]) 01/18/2016 [facility] Chronic bronchitis ([facility]) 07/26/2016 Closed skull fracture ([facility]) 1994 [facility], [facility] Coronary artery disease DDD (degenerative disc disease), cervica l Endometriosis 2007 Essential hypertension 12/14/2015 GERD (gastroesophageal reflux disease) 0 03/13/2019 History of colon polyps History of gastric ulcer 12/14/2015 HLD (hyperlipidemia) Injury of left facial nerve 1994 PAD (peripheral artery disease) ([facility]) Recurrent major depression in partial re mission ([facility]) 12/14/2015 S/P drug eluting coronary stent placemen t 08/25/2021 LAD and Dg2 Spinal stenosis PAST SURGICAL HISTORY Procedure Laterality Date APPENDECTOMY 1979 ARTHRP ACETBLR/PROX FEM PROSTC AGRFT/ALG RFT Right 03/25/2019 Hip replacement, total - Right CHOLECYSTECTOMY 1979 Cholecystectomy COLONOSCOPY 04/03/2017 diverticulosis- repeat 10 years COLONOSCOPY FLX DX W/COLLJ SPEC WHEN PFR 2010 Colonoscopy EGD 04/03/2017 Gastritis, duodenitis, GERD with esophag itis PAST SURGICAL HISTORY OF 1994 cervical disc surgery x 3 STENT PLACEMENT 08/25/2021 RODNEY LAD & Dg2 TEAEC W/WO PATCH GRAFT DEEP PROFUNDA FEM ORAL Right 10/20/2019 patch angioplasty, Right iliac stent TONSILLECTOMY PRIMARY/SECONDARY <AGE 12 1959 Tonsillectomy TOTAL ABDOMINAL HYSTERECT W/WO RMVL TUBE OVARY 1979 Hysterectomy, MAURA TOTAL FACIAL NERVE DECOMPRESSION &/REPAI R Left 1989 [facility] ALLERGIES Patient has no known allergies . MEDICATIONS traZODone (DESYREL) 100 mg tablet Take 2 tablets by mouth daily at bedtime. ekpvrtziibf-pjafvplwn-xaxaby er (TRELEGY ELLIPTA) 200-62.5-25 mcg inhalation powder Inhale 1 Puff as instructed once daily. predniSONE (DELTASONE) 10 mg tablet Take two daily for 5 days then one daily for 10 days nystatin (MYCOSTATIN) 100,00 0 unit/mL suspension Take 5 mL by mouth four times daily. 1tsp swish in mouth for several minutes, then swallow (or expectorate) 4 times daily until gone. (Patient not taking: Reported on 10/02/2022) acetaminophen (TYLENOL EXTRA STRENGTH) 500 mg tablet Take 1 tablet by mouth every 8 hours as needed for pain. venlafaxine ER (EFFEXOR XR) 150 mg 24 hr capsule Take 1 capsule by mouth once daily. Take with 75 mg capsule to =225 mg carvedilol (COREG) 6.25 mg tablet Take 1 tablet by mouth twice daily. Olopatadine (PATADAY ONCE DA JA RELIEF) 0.2 % drop Use 1 Drop in both eyes once daily. lisinopril (ZESTRIL, PRINIVIL) 40 mg tab let Take 1 tablet by mouth once daily. venlafaxine ER (EFFEXOR XR) 75 mg 24 hr capsule Take 1 capsule by mouth once daily. Take with 150 mg capsule to =150 mg triamcinolone acetonide (MARCI ALOG) 0.1 % cream Apply 1 application to affected area three times daily. Apply sparingly to area for rash/itching. albuterol HFA (VENTOLIN HFA) 90 mcg/actuation inhaler Inhale 2 Puffs as instructed every 6 hours as needed for wheezing/shortness of breath. amLODIPine (NORVASC) 10 mg tablet TAKE 1 TABLET BY MOUTH EVERY DAY omeprazole (PRILOSEC) 40 mg capsule Take 1 capsule by mouth once daily. isosorbide mononitrate ER (I MDUR) 30 mg 24 hr tablet TAKE 1 TABLET BY MOUTH EVERY DAY aspirin 81 mg chewable tablet Take 1 tab let by mouth once daily. clopidogrel (PLAVIX) 75 mg tablet Take 1 tablet by mouth once daily. FAMILY HISTORY Problem Relation Age of Onset Cancer Mother 50 lung cancer Hypertension Mother Cancer Father 50 lung cancer Cancer Sister 61 lung cancer Social History Tobacco Use Smoking status: Every Day Packs/day: 2.00 Years: 57.00 Pack years: 114.00 Types: Cigarettes Start date: [birth year]/11/1966 Smokeless tobacco: Never Tobacco comments: started age 10 - down to 1.5 ppd lately, now down to 1 ppd Vaping Use Vaping Use: Never used Substance Use Topics Alcohol use: Not Currently Drug use: No PHYSICAL EXAM BP 170/83 Pulse 85 Resp 22 Wt 58.1 kg (128 lb) LMP (LMP Unknown) SpO2 97% BMI 22.10 kg/m General Appearance: in no acute distress , alert, thin Pysch: affect is anxious Lungs: Lung sounds diminished throughout . No wheezing, rhonchi, rales. Heart: RRR without murmur, gallop, or ru bs. No ectopy Neurological: Negative findi ngs: speech normal, mental status intact, muscle strength normal, reflexes normal and symmetric Nausea/vomiting= 1 0 no nausea/vomiting +1 naus ea, no vomiting +2-3 more severe symptoms +4 nausea with dry heaves +5-6 more severe symptoms +7 constant nausea, frequent dry heaves and vomiting Tremor= 1 0 no tremor +1 not visible, can be felt fingertip to fingertip +2-3 more severe symptoms +4 moderate with patient's arms extended +5-6 more severe symptoms +7 severe, even with arms not extended Paroxysmal sweats= 0 0 no sweat visible +1 bare p erceptible sweating, palms moist +2-3 more severe symptoms +4 beads of sweats obvious on forehead +5-6 more severe symptoms +7 drenching sweats Anxiety= 1 0 no anxiety, at east +1 mil dly anxious +2-3 more severe symptoms +4 moderately anxious or guarded (anxiety inferred) +5-6 more severe symptoms +7 equivalent to acute panic states as seen in severe delirium or acute schizophrenic reactions Agitation= 0 0 normal activity +1 somewha t more activity than normal +2-3 more severe symptoms +4 moderately fidgety and restless +5-6 more severe symptoms +7 paces back and forth during most of the interview, or constantly thrashes about Tactile disturbances= 0 0 None +1 very mild itching, burning, numbness or tingling +2 mild itching, burning, numbness or tingling +3 moderate itching, burning, numbness or tingling +4 moderately severe hallucinations +5 extrem abimbola severe hallucinations +6 continuous hallucinations Auditory disturbances= 0 0 not present +1 very mild h arshness or ability to frighten +2 mild harshness or ability to frighten +3 moderate harshness or ability to frighten +4 moderately severe hallucinations +5 severe hallucinat ions +6 extremely severe hallucinations +7 continuous hallucinations Visual disturbances= 0 0 not present +1 very mild s ensitivity +2 mild sensitivity +3 moderate sensitivity +4 moderately severe hallucinations +5 severe hallucinations +6 extremely severe hallucinations +7 continuous hallucinations Headache/fullness in head= 0 0 not present +1 very mild + 2 mild +3 moderate +4 moderately severe +5 severe +6 very severe +7 extremely severe Orientation= 0 0 oriented, can do serial ad ditions +1 can't do serial additions or unsure about date +2 disoriented for date by no more than two calendar days +3 disoriented for date by more than two calendar days +[address] or [address] Total= 3 0 to 9 points: Very mild withdrawal 10 to 15 points: Mild withdrawal 16 to 20 points: Modest withdrawal 21 to 67 points: Severe withdrawal ASSESSMENT/PLAN: 1. Alcohol withdrawal syndro me without complication (HCC) - ICD9: 291.81, ICD10: F10.930 Patient experiencing mild wi thdrawal symptoms. CIWA score=3. Stable for outpatient management, she declined treatment with benzodiazepines at this time. Lengthy discussion regarding risks of alcohol wit hdrawal if not treated prope rly including coma and . If symptoms worsen she is agreeable to go to ER, see patient instructions. She would like to discuss inpatient rehab facility with clinical social work therapist, referral placed Close follow-up in office in one week, p atient agreeable - CONSULT TO [facility] Prescription instructions re viewed with patient as applicable. Potential red flag symptoms discussed with the patient. Reviewed appropriate action plan to take if red flag symptoms occur. Patient agreeable to treatment plan. During this patient visit I have spent approximately 30 minutes in counseling regarding treatment options, medications, and coordinating care. Oly Smith APRN.LINDA documented in this encounter 12-23-2022 Hospital Discharge Patient Education 12/23/2022 16:02:45 COPD Flare COPD Flare [facility] instructions Work Phone: You have had a flare-up of your COPD. COPD (chronic obstructive pu lmonary disease) is a common lung disease. It causes your airways to get irritated and narrower. This makes it harder for you to breathe. Emphysema and chronic bronchitis are both types of COPD. This is a long-term (chronic) condition. This means you always have it. Sometimes it gets worse. When this happens, it is called a flare-up. Symptoms of COPD People with COPD may have sy mptoms most of the time. In a flare-up, your symptoms get worse. These symptoms may mean you are having a flare-up: Shortness of breath, shallow or rapid b reathing, or wheezing that gets worse Lung infection Cough that gets worse More mucus, thicker mucus or mucus of a different color Tiredness, less energy, or trouble doin g your normal activities Fever Chest tightness Your symptoms don t get bet ter even when you use your normal medicines, inhalers, and nebulizer Trouble talking You feel confused Causes of flare-ups Unfortunately, a flare-up ca n happen even if you did everything right. And even if you followed your healthcare provider s instructions. Some causes of flare- ups are: Smoking or secondhand smoke Colds, the flu, or respiratory infectio ns Air pollution Sudden change in the weather Dust, irritating chemicals, or strong f umes Not taking your medicines as prescribed Home care Here are some things you can do at home to treat a flare-up: Try not to panic. This make s it harder to breathe, and keeps you from doing the right things. Don t smoke or be around others who are smoking. Try to drink more fluids th an normal during a flare-up, unless your healthcare provider has told you not to because of heart and kidney problems. More fluids can help loosen the mucus. Use your inhalers and nebulizer, if you have one, as you have been told to. If you were given antibioti cs, take them until they are used up or your provider tells you to stop. It s important to finish the antibiotics, even though you feel better. This will make sure the infection has cleared. If you were given prednison e or another steroid, finish it even if you feel better. Preventing a flare-up Flare-ups happen. But the be st way to treat one is to prevent it before it starts. Here are some pointers: Don t smoke or be around others who are smoking. Take your medicines as discussed with y our healthcare provider. Talk with your provider abo ut getting a flu shot every year. Also find out if you need a pneumonia shot. If there is a weather advis ory warning to stay indoors, try to stay inside when possible. Try to eat healthy, exercise, and get p lenty of sleep. Try to stay away from thing s that normally set you off. These include dust, chemical fumes, hairsprays, or strong perfumes. Follow-up care Follow up with your healthcare provider, or as advised. If a culture was done, you w ill be told if your treatment needs to be changed. You can call as directed for the results. If X-rays were done, you vera l be told of any new findings that may affect your care. Call 911 Call 911 if any of these occur: You have trouble breathing You feel confused or it s hard to wake you up You faint or lose consciousness You have a rapid heart rate You have new pain in your chest, arm, s houlder, neck, or upper back When to seek medical advice Call your healthcare provider right away if any of these occur: Wheezing or shortness of breath gets wo rse You need to use your inhalers more ofte n than normal without relief Fever of 100.4 F (38 C) or higher, or a s directed by your healthcare provider Coughing up lots of dark-colored or blo zandra mucus (sputum) Chest pain with each breath You don't start to get better within 24 hours Swelling of your ankles gets worse Dizziness or weakness 9586-4160 [employer]. [address] [place] [address], [place] [address]. All rights reserved. This information is not intended as a substitute for professional medical care. Always follow your healthcare professional's instructions. 12/23/2022 16:02:38 Anxiety Reaction Anxiety Reaction Anxiety is the feeling we al l get when we think something bad might happen. It is a normal response to stress and usually causes only a mild reaction. When anxiety becomes more severe, it can interfere with daily life. In some diallo es, you may not even be aware of what it is you re anxious about. There may also be a genetic link or it may be a learned behavior in the home. Both psychological and physi peewee triggers cause stress reaction. It's often a response to fear or emotional stress, real or imagined. This stress may come from home, family, work, or social relationships. During an anxiety reaction, you may feel : Helpless Nervous Depressed Irritable Your body may show signs of anxiety in m any ways. You may experience: Dry mouth Shakiness Dizziness Weakness Trouble breathing Breathing fast (hyperventilating) Chest pressure Sweating Headache Nausea Diarrhea Tiredness Inability to sleep Sexual problems Home care Try to locate the sources o f stress in your life. They may not be obvious. These may include: oDaily hassles of life (such as traffic jams, missed appointments, or car troubles) oMajor life changes, both go od (new baby or job promotion) and bad (loss of job or loss of loved one) oOverload: feeling that you have too many responsibilities and can't take care of all of them at once oFeeling helpless or feeling that your problems are beyond what you re able to solve Notice how your body reacts to stress. Learn to listen to your body signals. This will help you take action before the stress becomes severe. When you can, do something about the source of your stress. (Avoid hassles, limit the amount of change that happens in your life at one time and take a break when you feel overloaded). Unfortunately, many stressf ul situations can't be avoided. It is necessary to learn how to better manage stress. There are many proven methods that will reduce your anxiety. These include simple things like exercise, good nutriti on, and adequate rest. Also, there are certain techniques that are helpful: oRelaxation oBreathing exercises oVisualization oBiofeedback oMeditation For more information about t his, consult your healthcare provider or go to a local bookstore and review the many books and tapes available on this subject. Follow-up care If you feel that your anxiet y is not responding to self-help measures, contact your healthcare provider or make an appointment with a counselor. You may need short-term psychological counseling and temporary medicine to help you manage stress. Call 911 Call 911 if any of these happen: Trouble breathing Confusion Drowsiness or trouble wakening Fainting or loss of consciousness Rapid heart rate Seizure New chest pain that becomes more severe, lasts longer, or spreads into your shoulder, arm, neck, jaw, or back When to seek medical advice Call your healthcare provider right away if any of these happen: Your symptoms get worse Severe headache not relieved by rest an d mild pain reliever [id number] [employer]. [address] [place] [address]. All rights reserved. This information is not intended as a substitute for professional medical care. Always follow your healthcare professional's instructions. Follow Up Care 12/23/2022 13:42:18 With:ULISES HERMOSILLO MD Address: [address] [place] [address]- When:2-4 days Comments:Return to ED if symptoms worsen 12-23-2022 Note [facility] Discharge Instructions Thank you for allowing [facility] to assist you with your healthcare needs. The following is important discharge information regarding your hospital visit. Diagnosis from Today's Visit Anxiety reaction Acute exacerbation of COPD SOB - Shortness of breath What to Do Next Instructions from Your Care Team No qualifying data available. Post Acute Orders No qualifying data available. You Need to Schedule the Following Appoi ntments Follow Up with ULISES HERMOSILLO MD When Within 2-4 days Why: Return to ED if symptoms worsen Where: [address] [place] [address]- Allergies NKA Medications Please ask your primary doct or or pharmacist before taking any other medication not listed, including over the counter drugs, herbal medications, vitamins and or supplements as they may interact with your home medications. What How Much When Why Instr uctions Last Dose New LORazepam (Ativan 0.5 mg oral tablet) 1 tab(s) by mouth Every 8 hours as needed for as needed fo r anxiety Anxiety reaction Acute exacerbation of COPD Duration: 3 Days Printed Prescription New predniSONE (predniSONE 50 mg oral ta blet) 1 tab(s) by mouth Once a day with a meal Anxiety reaction Acute exacerbation of COPD Printed Prescription Unchanged albuterol (albuterol MDI (90 m cg/ inh) CFC free inhalation aerosol) 2 puff(s) by inhalation Four (4) times a day as needed for as ne eded for wheezing Unchanged amLODIPine (amLODIPine 10 mg o ral tablet) 1 tab(s) by mouth Once a day Unchanged aspirin 81 Milligram Chewed Once a day Unchanged atorvastatin (atorvastatin 80 mg oral tablet) 1 tab(s) by mouth Once a day Unchanged budesonide-formoterol (Symbico rt 160 mcg-4.5 mcg/ inh Inhaler) 2 puff(s) by inhalation Two (2) times a day Unchanged carvedilol (carvedilol 6.25 mg oral tablet) 1 tab(s) by mouth Two (2) times a day Unchanged clopidogrel (clopidogrel 75 mg oral tablet) 1 tab(s) by mouth Every day Unchanged fluticasone/ umecl idinium/ vilanterol (Trelegy Ellipta 200 mcg-62.5 mcg-25 mcg/ inh inhalation powder) 1 puff(s) by inhalation Once a day at the same time every day Unchanged isosorbide mononit rate (isosorbide mononitrate 30 mg oral tablet, extended release) 1 tab(s) by mouth Once a day (in the morning) Unchanged lisinopril (lisinopril 40 mg o ral tablet) 1 tab(s) by mouth Once a day Unchanged omeprazole (omeprazole 40 mg o ral delayed release capsule) 1 cap by mouth Once a day Unchanged traZODone (traZODone 100 mg or al tablet) 1 tab(s) by mouth Daily at bedtime Unchanged venlafaxine (venlafaxine 150 m g oral capsule, extended release) 1 cap by mouth Once a day Please take this list to you r next doctor s visit. Bring all medications you take, including over the counter medications, herbals and other supplements with you to your doctor s visit. Patients and fam ilies are reminded to discar d old lists and to update any records with all medication providers or retail pharmacies. Education Materials COPD Flare You have had a flare-up of your COPD. COPD (chronic obstructive pu lmonary disease) is a common lung disease. It causes your airways to get irritated and narrower. This makes it harder for you to breathe. Emphysema and chronic bronchitis are both types of COPD. This is a long-term (chronic) condition. This means you always have it. Sometimes it gets worse. When this happens, it is called a flare-up. Symptoms of COPD People with COPD may have sy mptoms most of the time. In a flare-up, your symptoms get worse. These symptoms may mean you are having a flare-up: Shortness of breath, shallow or rapid b reathing, or wheezing that gets worse Lung infection Cough that gets worse More mucus, thicker mucus or mucus of a different color Tiredness, less energy, or trouble doin g your normal activities Fever Chest tightness Your symptoms don t get bet ter even when you use your normal medicines, inhalers, and nebulizer Trouble talking You feel confused Causes of flare-ups Unfortunately, a flare-up ca n happen even if you did everything right. And even if you followed your healthcare provider s instructions. Some causes of flare- ups are: Smoking or secondhand smoke Colds, the flu, or respiratory infectio ns Air pollution Sudden change in the weather Dust, irritating chemicals, or strong f umes Not taking your medicines as prescribed Home care Here are some things you can do at home to treat a flare-up: Try not to panic. This make s it harder to breathe, and keeps you from doing the right things. Don t smoke or be around others who are smoking. Try to drink more fluids th an normal during a flare-up, unless your healthcare provider has told you not to because of heart and kidney problems. More fluids can help loosen the mucus. Use your inhalers and nebulizer, if you have one, as you have been told to. If you were given antibioti cs, take them until they are used up or your provider tells you to stop. It s important to finish the antibiotics, even though you feel better. This will make sure the infection has cleared. If you were given prednison e or another steroid, finish it even if you feel better. Preventing a flare-up Flare-ups happen. But the be st way to treat one is to prevent it before it starts. Here are some pointers: Don t smoke or be around others who are smoking. Take your medicines as discussed with y our healthcare provider. Talk with your provider abo ut getting a flu shot every year. Also find out if you need a pneumonia shot. If there is a weather advis ory warning to stay indoors, try to stay inside when possible. Try to eat healthy, exercise, and get p lenty of sleep. Try to stay away from thing s that normally set you off. These include dust, chemical fumes, hairsprays, or strong perfumes. Follow-up care Follow up with your healthcare provider, or as advised. If a culture was done, you w ill be told if your treatment needs to be changed. You can call as directed for the results. If X-rays were done, you vera l be told of any new findings that may affect your care. Call 911 Call 911 if any of these occur: You have trouble breathing You feel confused or it s hard to wake you up You faint or lose consciousness You have a rapid heart rate You have new pain in your chest, arm, s houlder, neck, or upper back When to seek medical advice Call your healthcare provider right away if any of these occur: Wheezing or shortness of breath gets wo rse You need to use your inhalers more ofte n than normal without relief Fever of 100.4 F (38 C) or higher, or a s directed by your healthcare provider Coughing up lots of dark-colored or blo zandra mucus (sputum) Chest pain with each breath You don't start to get better within 24 hours Swelling of your ankles gets worse Dizziness or weakness [id number] [employer]. [address] [place] [address]. All rights reserved. This information is not intended as a substitute for professional medical care. Always follow your healthcare professional's instructions. Anxiety Reaction Anxiety is the feeling we al l get when we think something bad might happen. It is a normal response to stress and usually causes only a mild reaction. When anxiety becomes more severe, it can interfere with daily life. In some diallo es, you may not even be aware of what it is you re anxious about. There may also be a genetic link or it may be a learned behavior in the home. Both psychological and physi peewee triggers cause stress reaction. It's often a response to fear or emotional stress, real or imagined. This stress may come from home, family, work, or social relationships. During an anxiety reaction, you may feel : Helpless Nervous Depressed Irritable Your body may show signs of anxiety in m any ways. You may experience: Dry mouth Shakiness Dizziness Weakness Trouble breathing Breathing fast (hyperventilating) Chest pressure Sweating Headache Nausea Diarrhea Tiredness Inability to sleep Sexual problems Home care Try to locate the sources o f stress in your life. They may not be obvious. These may include: oDaily hassles of life (such as traffic jams, missed appointments, or car troubles) oMajor life changes, both go od (new baby or job promotion) and bad (loss of job or loss of loved one) oOverload: feeling that you have too many responsibilities and can't take care of all of them at once oFeeling helpless or feeling that your problems are beyond what you re able to solve Notice how your body reacts to stress. Learn to listen to your body signals. This will help you take action before the stress becomes severe. When you can, do something about the source of your stress. (Avoid hassles, limit the amount of change that happens in your life at one time and take a break when you feel overloaded). Unfortunately, many stressf ul situations can't be avoided. It is necessary to learn how to better manage stress. There are many proven methods that will reduce your anxiety. These include simple things like exercise, good nutriti on, and adequate rest. Also, there are certain techniques that are helpful: oRelaxation oBreathing exercises oVisualization oBiofeedback oMeditation For more information about t his, consult your healthcare provider or go to a local bookstore and review the many books and tapes available on this subject. Follow-up care If you feel that your anxiet y is not responding to self-help measures, contact your healthcare provider or make an appointment with a counselor. You may need short-term psychological counseling and temporary medicine to help you manage stress. Call 911 Call 911 if any of these happen: Trouble breathing Confusion Drowsiness or trouble wakening Fainting or loss of consciousness Rapid heart rate Seizure New chest pain that becomes more severe, lasts longer, or spreads into your shoulder, arm, neck, jaw, or back When to seek medical advice Call your healthcare provider right away if any of these happen: Your symptoms get worse Severe headache not relieved by rest an d mild pain reliever [phone] [employer]. [address] [place] [address], [place] [address]. All rights reserved. This information is not intended as a substitute for professional medical care. Always follow your healthcare professional's instructions. Additional Information VACCINATE! IT SAVES LIVES! Members of the community who have not yet received the COVID-19 vaccine and would like to receive it can visit one of [facility] vaccine clinics. There are many vaccine clinic locations within the [facility]. For locations and available times, please visit [email or web address]. It is important to note that some COVID mobile vaccine clinics are held outdoors and may be canceled in rainy or stormy conditions. To learn more about pediatr ic vaccinations (ages 5-11), we invite you to visit the [facility] webpage. [email or web address] T o learn more about the COVID -19 vaccine, we invite you to visit the [employer] website for a list of frequently asked questions. [email or web address] [place] [employer] Patient Portal Access I nstructions: Stay connected with your [facility] team and access your personal medical information anytime with the [employer] Patient Portal. If you would like a full copy of your medical records please conta ct the [facility] Records Department Saturday through Saturday between 8a.m. and 4:30p.m. Please follow the directions below to access the portal: 1.Access the email account y ou provided upon registration to the [facility].2.Look for an invitation email from [facility].3.Open the email and access the invitation link: Accept Invitation to [facility] shilo Nguyen4.Fill in the required randle to create your account. Sign into [email or web address] wi th your username and password that you created in the above steps to stay up to date. You can then view a summary of results, a summary of your visits, and the ability to isaiah nload your summaries to your computer or send the information securely to a physician. Remember that your healthcare information is confidential, so carefully consider who you will allow to register on the [employer] Patient Portal for access to your information. You can also access the [employer] Patient Portal on the [employer] larissa. Simply click on Health Records under Health Data and then click on the [employer] logo. HOW TO SAFELY DISPOSE OF PRESCRIPTION ME DICATIONS Please use one of the follow ing methods to safely dispose of your unused medications. 1.Use a drug disposal kit: t he drug disposal pouch allows you to safely discard your old and unused drugs. Ask your nurse to give you one when you are discharged.2.Visit a local take-back location: Many local pharmacies and police departments have programs that collect old and unwanted prescription drugs. Call your local pharmacy or go to http://[employer]/3V3Yr3p to find one close to you.3.Make use of ho usehold items: Use cat litte r or old coffee grounds to dispose medications if other options are not available. Mix your drugs with these household products, seal them in an airtight container and throw it into the garbage. Call [place] EPA: [phone] to be sure your drugs can be disposed of in this way. Some medicines may require a different approach.4.Never flush your medications down the toilet. IF YOU HAVE BEEN PRESCRIBED AN OPIOIDS F OR PAIN If you have been prescribed an opioid (such as hydrocodone, oxycodone or morphine), it is critical to understand the possible side effects and risks of opioid pain medications. Even when taken as direct ed, opioids can have several side effect s including: Tolerance, meaning you migh t need to take more of a medication for the same pain relief. Nausea, vomiting and/or constipation. Sleepiness, dizziness, dry mouth, confusion, depression or itching. Physic al dependence, meaning you h ave withdrawal symptoms when a medication is stopped ? this can develop within a few days. KNOW YOUR RESPONSIBILITIES It is important to know exac tly how much and how often to take the opioid pain medications you are prescribed. Never take opioids in higher amounts or more often than prescribed. Do not combine opioids with alcohol or other drugs that cause drowsiness, such as benzodiazepines, also known as benzos, including diazepam and alprazolam, muscle relaxants or sleep aids. Never sell or share prescription opio ids. This is illegal. Store opioids in a secure place and out of reach of others (including children, family, friends and visitors). The last page(s) of this document has be en signed and retained as a CHART COPY Signatures Patient Education Materials COPD Flare Anxiety Reaction Medication Leaflets My discharge plan and instru ctions have been reviewed and explained to me and I,VINCE KOENIG understand my current condition and have read and understand these discharge instructions. I have recei alhaji a written copy of the pl an/instructions. If I have questions, I am aware that I should contact my doctor. 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 Signa ture: Date/Time: Relationship to Patient: Witness Name/Signature: Date/Time: 12-23-2022 Note [facility] ORIGINAL EXAMINATION: ONE XRAY VIEW OF THE CHEST12/23/2022 2:32 pm CHEST ONE VIEW AP/PA COMPARISON: 10/26/2022 HISTORY: ORDERING SYSTEM PROVIDED HISTORY: Reason for Exam: SOB/cough/fever FINDINGS: The cardiomediastinal contours are carito l. The aorta is atherosclerotic. There is no focal consolidation, pleural effusion, or pneumothorax. No acute osseous abnormality. There are remote ri ght-sided rib fractures. Surgical hardware seen in the lower cervical spin e. IMPRESSION: No acute radiographic findings. Interpreted by: Ben Hernández MD Preliminary Report By: Ben Hernández MD Electronically signed By Jaylyn Escobar Dictated Date: 12/23/2022 2:42:09 PM Prelim Date: 12/23/2022 2:43:01 PM Sign Date: 12/23/2022 2:43:01 PM Ordering Provider: JOSE ROBERTO COMBS 12-23-2022 Note [facility] ORIGINAL EXAMINATION: ONE XRAY VIEW OF THE CHEST12/23/2022 2:32 pm CHEST ONE VIEW AP/PA COMPARISON: 10/26/2022 HISTORY: ORDERING SYSTEM PROVIDED HISTORY: Reason for Exam: SOB/cough/fever FINDINGS: The cardiomediastinal contours are carito l. The aorta is atherosclerotic. There is no focal consolidation, pleural effusion, or pneumothorax. No acute osseous abnormality. There are remote ri ght-sided rib fractures. Surgical hardware seen in the lower cervical spin e. IMPRESSION: No acute radiographic findings. Interpreted by: Ben Hernández MD Preliminary Report By: Ben Hernández MD Electronically signed By Jaylyn Escobar Dictated Date: 12/23/2022 2:42:09 PM Prelim Date: 12/23/2022 2:43:01 PM Sign Date: 12/23/2022 2:43:01 PM Ordering Provider: JOSE ROBERTO COMBS 12-14-2022 Miscellaneous Formatting of this note migh t be different from the original. [facility] Notes Last seen pcp 09/05/22 Next appt 01/01/23. Formatting of this note is different fro m the original. Patient has been identified by name and date of : Yes Requested Prescriptions Pending Prescriptions Disp Refills traZODone (DESYREL) 100 mg tablet 60 tab let 5 Sig: Take 2 tablets by mouth daily at be dtime. RX INSTRUCTIONS: Please fill today if possible, patient i s out of this medication Patient would like a call to advise RX has been approved and sent to the pharmacy. Call patient at [phone] (cell) [facility] this encounter 11-26-2022 Note HNO ID: [id number] [facility] Author: MD Jeronimo Carvalho Service: ? Author Type: Physician Type: Progress Notes Filed: 11/26/2022 2:01 PM Note Text: . [facility] [place] Note Patient name: Vince Koenig PCP: Ulises Hermosillo MD CC: Hemoptysis HPI: Vince Koenig 67 year old femal e current heavy smoker, over 100 pack years with PMH significant for bipo lar affective disorder, h/o alcohol abuse, GERD, PAD, HLD, CAD s/p s tent, severe COPD (FEV1 0.83 L 36%), oxygen dependence, previously foll owing in [facility], [place]. Recent admission at [facility] in [place] for AECOPD. CXR reported as normal. Discharged with a course of doxycycline and prednisone. She states she was doing wel l until last week when she had an episode of hemoptysis. She described bandar ght red blood with clots mixed with mucus that lasted 24 hours. No feve rs, chills, chest pain. No epistaxis or hematemesis. She has been o ut of her Trelegy Ellipta and has been using her albuterol at least twice daily. She is on Plavix for her coronary stent. Denies past bleeding pro blems. Current respiratory symptoms of dyspnea on exertion, wheezin g. No chest pain or current cough. DME: [facility] DATA: PFT 05/2022: Review of spirometry shows severe obstru ction without significant improvement post bronchodilators and mod erate reduction in diffusing capacity Labs: Laboratory testing at [facility], normal CBC and platelet count. Negative COVID and influenza Imaging / Diagnostic Studies: DATE OF EXAM: Jul 26 2022 4:27PM [facility] 0562 - CT LUNG SCREEN WO IVCON / ACC ESSION # [id number] PROCEDURE REASON: multiple diagnoses CLINICAL HISTORY: Lung cancer LDCT scree fannie ? absence of signs or symptoms of lung cancer. Nicotine depend ence (cigarettes). COMPARISON: 02/03/2021. RESULT: Are nodules present? Yes, 1-5 nodules Nodule 1: This Solid nodule is located i n the Right Upper Lobe on slice number 103 with an average diameter of 8 .2 mm (9.7 mm x 6.8 mm). Other lung nodule comments: None. Other findings: There is severe centrilo bular emphysema with diffuse bronchial wall thickening. No focal cons olidation. Linear atelectasis at the lung bases. The imaged thyroid gland is unremarkable. No thoracic lymphadenopathy. There are atherosclerot ic calcifications in the thoracic aorta. The thoracic aorta and main pulmo nary artery are normal in caliber. The cardiac chambers are normal in size. There are triple-vessel coronary artery calcificat ions noting LAD stents. No pericardial effusion or pericardial thic kening. The imaged upper abdomen is stable without acute abnormality. Emphysema: Severe (50-75%), centrilobula r, diffuse Coronary Artery Calcifications: Circumfl ex mild; Left Anterior Descending stents in place; Right Coronary mild IMPRESSION: LungRADS category: 2 LungRADS modifier: None LungRADS 0 reason: n/a Recommendations: Continue annual screening with LDCT in 1 2 months. I personally reviewed the images and agr ee with the above assessment PAST MEDICAL HISTORY Diagnosis Date Acute pancreatitis 2010 Anisha Cruz Alcohol use disorder 01/18/2016 [facility] Anxiety 12/14/2015 Bipolar affective disorder, currently ac tive ([facility]) 01/18/2016 Dr. Angie Jones, [facility] Chronic bronchitis ([facility]) 07/26/2016 Closed skull fracture ([facility]) 1994 [facility], [facility] Coronary artery disease DDD (degenerative disc disease), cervica l Endometriosis 2007 Essential hypertension 12/14/2015 GERD (gastroesophageal reflux disease) 0 03/13/2019 History of colon polyps History of gastric ulcer 12/14/2015 HLD (hyperlipidemia) Injury of left facial nerve 1994 PAD (peripheral artery disease) ([facility]) Recurrent major depression in partial re mission ([facility]) 12/14/2015 S/P drug eluting coronary stent placemen t 08/25/2021 LAD and Dg2 Spinal stenosis ALLERGIES No Known Allergies albuterol HFA (VENTOLIN HFA) 90 mcg/actu ation inhaler Inhale 2 Puffs as instructed every 6 hours as needed for w heezing/shortness of breath. ecdtvtgxvex-hflxuhxmd-setdszbt (TRELEGY ELLIPTA) 200-62.5-25 mcg inhalation powder Inhale 1 Puff as instr ucted once daily. predniSONE (DELTASONE) 10 mg tablet Take two daily for 5 days then one daily for 10 days nystatin (MYCOSTATIN) 100,000 unit/mL toure spension Take 5 mL by mouth four times daily. 1tsp swish in mouth for sev eral minutes, then swallow (or expectorate) 4 times daily until gone. ( Patient not taking: Reported on 10/02/2022) acetaminophen (TYLENOL EXTRA STRENGTH) 5 00 mg tablet Take 1 tablet by mouth every 8 hours as needed for pain. venlafaxine ER (EFFEXOR XR) 150 mg 24 hr capsule Take 1 capsule by mouth once daily. Take with 75 mg capsule to = 225 mg carvedilol (COREG) 6.25 mg tablet Take 1 tablet by mouth twice daily. Olopatadine (PATADAY ONCE DA JA RELIEF) 0.2 % drop (more content not included)... 11-26-2022 History of Present [facility] illness Narrative Images from the original note were not i ncluded. . [facility] [place] Note Patient name: Vince Koenig PCP: Ulises Hermosillo MD CC: Hemoptysis HPI: Vince Koenig 67 ye ar old female current heavy smoker, over 100 pack years with PMH significant for bipolar affective disorder, h/o alcohol abuse, GERD, PAD, HLD, CAD s/p stent, severe COPD (FE V1 0.83 L 36%), oxygen depen julio, previously following in [facility], [place]. Recent admission at [facility] in [place] for AECOPD. CXR reported as normal. Discharged with a cour se of doxycycline and predni sone. She states she was doing well until last week when she had an episode of hemoptysis. She described bright red blood with clots mixed with mucus that lasted 24 hours. No fevers, chills, chest pain. No epistaxis or hematemesis. She has been out of her Trelegy Ellipta and has been using her albuterol at least twice daily. She is on Plavix for her coronary stent. Denies p ast bleeding problems. Curre nt respiratory symptoms of dyspnea on exertion, wheezing. No chest pain or current cough. DME: [facility] DATA: PFT 05/2022: Review of spirometry shows s evere obstruction without significant improvement post bronchodilators and moderate reduction in diffusing capacity Labs: Laboratory testing at [facility], normal CBC and platelet count. Negative COVID and influenza Imaging / Diagnostic Studies: DATE OF EXAM: Jul 26 2022 4:27PM [facility] 0562 - CT LUNG SCREEN WO IVCON / ACC ESSION # [id number] PROCEDURE REASON: multiple diagnoses CLINICAL HISTORY: Lung cance r LDCT screening ? absence of signs or symptoms of lung cancer. Nicotine dependence (cigarettes). COMPARISON: 02/03/2021. RESULT: Are nodules present? Yes, 1-5 nodules Nodule 1: This Solid nodule is located in the Right Upper Lobe on slice number 103 with an average diameter of 8.2 mm (9.7 mm x 6.8 mm). Other lung nodule comments: None. Other findings: There is sev ere centrilobular emphysema with diffuse bronchial wall thickening. No focal consolidation. Linear atelectasis at the lung bases. The imaged thyroid gland is unremarkable. No thoracic lymphadenopathy. T here are atherosclerotic calcifications in the thoracic aorta. The thoracic aorta and main pulmonary artery are normal in caliber. The cardiac chambers are normal in size. Th ere are triple-vessel tolbert ry artery calcifications noting LAD stents. No pericardial effusion or pericardial thickening. The imaged upper abdomen is stable without acute abnormality. Emphysema: Severe (50-75%), centrilobula r, diffuse Coronary Artery Calcificatio ns: Circumflex mild; Left Anterior Descending stents in place; Right Coronary mild IMPRESSION: LungRADS category: 2 LungRADS modifier: None LungRADS 0 reason: n/a Recommendations: Continue annual screening with LDCT in 1 2 months. I personally reviewed the images and agr ee with the above assessment PAST MEDICAL HISTORY Diagnosis Date Acute pancreatitis 2010 Anisha Cruz Alcohol use disorder 01/18/2016 [facility] Anxiety 12/14/2015 Bipolar affective disorder, currently ac tive ([facility]) 01/18/2016 [facility] Chronic bronchitis ([facility]) 07/26/2016 Closed skull fracture ([facility]) 1994 [facility], [facility] Coronary artery disease DDD (degenerative disc disease), cervica l Endometriosis 2007 Essential hypertension 12/14/2015 GERD (gastroesophageal reflux disease) 0 03/13/2019 History of colon polyps History of gastric ulcer 12/14/2015 HLD (hyperlipidemia) Injury of left facial nerve 1994 PAD (peripheral artery disease) ([facility]) Recurrent major depression in partial re mission ([facility]) 12/14/2015 S/P drug eluting coronary stent placemen t 08/25/2021 LAD and Dg2 Spinal stenosis ALLERGIES No Known Allergies albuterol HFA (VENTOLIN HFA) 90 mcg/actuation inhaler Inhale 2 Puffs as instructed every 6 hours as needed for wheezing/shortness of breath. nhlbxtuamzt-kewvypybl-fzicdl er (TRELEGY ELLIPTA) 200-62.5-25 mcg inhalation powder Inhale 1 Puff as instructed once daily. predniSONE (DELTASONE) 10 mg tablet Take two daily for 5 days then one daily for 10 days nystatin (MYCOSTATIN) 100,00 0 unit/mL suspension Take 5 mL by mouth four times daily. 1tsp swish in mouth for several minutes, then swallow (or expectorate) 4 times daily until gone. (Patient not taking: Reported on 10/02/2022) acetaminophen (TYLENOL EXTRA STRENGTH) 500 mg tablet Take 1 tablet by mouth every 8 hours as needed for pain. venlafaxine ER (EFFEXOR XR) 150 mg 24 hr capsule Take 1 capsule by mouth once daily. Take with 75 mg capsule to =225 mg carvedilol (COREG) 6.25 mg tablet Take 1 tablet by mouth twice daily. Olopatadine (PATADAY ONCE DA JA RELIEF) 0.2 % drop Use 1 Drop in both eyes once daily. lisinopril (ZESTRIL, PRINIVIL) 40 mg tab let Take 1 tablet by mouth once daily. LORazepam (ATIVAN) 1 mg tabl et Take 1 tablet by mouth every 8 hours as needed for anxiety for up to 90 days. (Patient not taking: Reported on 10/02/2022) venlafaxine ER (EFFEXOR XR) 75 mg 24 hr capsule Take 1 capsule by mouth once daily. Take with 150 mg capsule to =150 mg triamcinolone acetonide (MARCI ALOG) 0.1 % cream Apply 1 application to affected area three times daily. Apply sparingly to area for rash/itching. traZODone (DESYREL) 100 mg tablet Take 2 tablets by mouth daily at bedtime. amLODIPine (NORVASC) 10 mg tablet TAKE 1 TABLET BY MOUTH EVERY DAY omeprazole (PRILOSEC) 40 mg capsule Take 1 capsule by mouth once daily. isosorbide mononitrate ER (I MDUR) 30 mg 24 hr tablet TAKE 1 TABLET BY MOUTH EVERY DAY aspirin 81 mg chewable tablet Take 1 tab let by mouth once daily. clopidogrel (PLAVIX) 75 mg tablet Take 1 tablet by mouth once daily. Social History Tobacco Use Smoking status: Every Day Packs/day: 2.00 Years: 57.00 Pack years: 114.00 Types: Cigarettes Start date: 11/11/1966 Smokeless tobacco: Never Tobacco comments: started age 10 - down to 1.5 ppd lately, now down to 1 ppd Vaping Use Vaping Use: Never used Substance Use Topics Alcohol use: Not Currently Drug use: No Pets: Dogs FAMILY HISTORY Problem Relation Age of Onset Cancer Mother 50 lung cancer Hypertension Mother Cancer Father 50 lung cancer Cancer Sister 61 lung cancer PAST SURGICAL HISTORY Procedure Laterality Date APPENDECTOMY 1979 ARTHRP ACETBLR/PROX FEM PROSTC AGRFT/ALG RFT Right 03/25/2019 Hip replacement, total - Right CHOLECYSTECTOMY 1979 Cholecystectomy COLONOSCOPY 04/03/2017 diverticulosis- repeat 10 years COLONOSCOPY FLX DX W/COLLJ SPEC WHEN PFR 2010 Colonoscopy EGD 04/03/2017 Gastritis, duodenitis, GERD with esophag itis PAST SURGICAL HISTORY OF 1994 cervical disc surgery x 3 STENT PLACEMENT 08/25/2021 RODNEY LAD & Dg2 TEAEC W/WO PATCH GRAFT DEEP PROFUNDA FEM ORAL Right 10/20/2019 patch angioplasty, Right iliac stent TONSILLECTOMY PRIMARY/SECONDARY <AGE 12 1960 Tonsillectomy TOTAL ABDOMINAL HYSTERECT W/WO RMVL TUBE OVARY 1979 Hysterectomy, MAURA TOTAL FACIAL NERVE DECOMPRESSION &/REPAI R Left 1989 [facility] PMH, Social history, family history and surgical history reviewed and updated in EMR REVIEW OF SYSTEMS: CONSTITUTIONAL: No fevers, chills, night sweats, unintended weight loss HEENT: Denies nasal congestion/sinus sym ptoms, epistaxis CARDIOVASCULAR: No chest pain, palpitati ons, orthopnea, PND, edema. PULM: See HPI GI: No dysphagia/odynophagia, problemati c reflux, hematemesis PSY: No concerns regarding depression, a nxiety INTEGUMENTARY: No bruising PHYSICAL EXAMINATION: BP 120/84 Pulse 98 Resp 20 Wt 127 lb (57.6kg) SpO2 99% General Appearance: Age-appropriate fema le, plethoric Skin: Skin color, texture, turgor normal , no suspicious rashes or lesions. Head: Normocephalic, no masses, lesions, tenderness or abnormalities. Nose: No epistaxis Eyes: Sclera, conjunctiva normal Oropharynx: Edentulous, no oral lesions or thrush Neck: No JVD, no masses, no thyromegaly, no adenopathy Chest wall: Increased AP diameter Lungs: Not labored, hyperres onant to percussion, diminished breath sounds with expiratory wheezes Heart: Regular rate and rhythm, no murmu rs or gallops Extremities: No edema or clubbing Assessment/Plan: 1. Hemoptysis -Transient hemoptysis likely related to her acute COPD exacerbation with bronchitis -Chest x-ray -CBC -Smoking cessation 2. Severe COPD, GOLD 3 -Refilled prescription for Trelegy Ellip ta -Smoking cessation strongly encouraged -Due for low-dose chest CT for cancer sc reening in July 2023 -Alpha-1 antitrypsin level 3. Cigarette smoker -Current heavy smoker, cutti ng back to 1 pack a day with sequelae of severe COPD -Smoking cessation strongly encouraged Salima Asher MD [facility] [place] documented in this encounter 10-26-2022 Hospital Discharge Patient Education 10/26/2022 19:44:17 COPD Flare COPD Flare [facility] instructions Work Phone: You have had a flare-up of your COPD. COPD (chronic obstructive pu lmonary disease) is a common lung disease. It causes your airways to get irritated and narrower. This makes it harder for you to breathe. Emphysema and chronic bronchitis are both types of COPD. This is a long-term (chronic) condition. This means you always have it. Sometimes it gets worse. When this happens, it is called a flare-up. Symptoms of COPD People with COPD may have sy mptoms most of the time. In a flare-up, your symptoms get worse. These symptoms may mean you are having a flare-up: Shortness of breath, shallow or rapid b reathing, or wheezing that gets worse Lung infection Cough that gets worse More mucus, thicker mucus or mucus of a different color Tiredness, less energy, or trouble doin g your normal activities Fever Chest tightness Your symptoms don t get bet ter even when you use your normal medicines, inhalers, and nebulizer Trouble talking You feel confused Causes of flare-ups Unfortunately, a flare-up ca n happen even if you did everything right. And even if you followed your healthcare provider s instructions. Some causes of flare- ups are: Smoking or secondhand smoke Colds, the flu, or respiratory infectio ns Air pollution Sudden change in the weather Dust, irritating chemicals, or strong f umes Not taking your medicines as prescribed Home care Here are some things you can do at home to treat a flare-up: Try not to panic. This make s it harder to breathe, and keeps you from doing the right things. Don t smoke or be around others who are smoking. Try to drink more fluids th an normal during a flare-up, unless your healthcare provider has told you not to because of heart and kidney problems. More fluids can help loosen the mucus. Use your inhalers and nebulizer, if you have one, as you have been told to. If you were given antibioti cs, take them until they are used up or your provider tells you to stop. It s important to finish the antibiotics, even though you feel better. This will make sure the infection has cleared. If you were given prednison e or another steroid, finish it even if you feel better. Preventing a flare-up Flare-ups happen. But the be st way to treat one is to prevent it before it starts. Here are some pointers: Don t smoke or be around others who are smoking. Take your medicines as discussed with y our healthcare provider. Talk with your provider abo ut getting a flu shot every year. Also find out if you need a pneumonia shot. If there is a weather advis ory warning to stay indoors, try to stay inside when possible. Try to eat healthy, exercise, and get p lenty of sleep. Try to stay away from thing s that normally set you off. These include dust, chemical fumes, hairsprays, or strong perfumes. Follow-up care Follow up with your healthcare provider, or as advised. If a culture was done, you w ill be told if your treatment needs to be changed. You can call as directed for the results. If X-rays were done, you vera l be told of any new findings that may affect your care. Call 911 Call 911 if any of these occur: You have trouble breathing You feel confused or it s hard to wake you up You faint or lose consciousness You have a rapid heart rate You have new pain in your chest, arm, s houlder, neck, or upper back When to seek medical advice Call your healthcare provider right away if any of these occur: Wheezing or shortness of breath gets wo rse You need to use your inhalers more ofte n than normal without relief Fever of 100.4 F (38 C) or higher, or a s directed by your healthcare provider Coughing up lots of dark-colored or blo zandra mucus (sputum) Chest pain with each breath You don't start to get better within 24 hours Swelling of your ankles gets worse Dizziness or weakness [id number] [employer]. [address] [place] [id number]. All rights reserved. This information is not intended as a substitute for professional medical care. Always follow your healthcare professional's instructions. Follow Up Care 10/26/2022 16:18:34 With:Go to emergency room if symptoms worsen Address:Unknown When:2-4 days With:ULISES HERMOSILLO MD Address: [address] [place] [address]- When:2-4 days 10-26-2022 Note [facility] Discharge Instructions Thank you for allowing [facility] to assist you with your healthcare needs. The following is important discharge information regarding your hospital visit. Diagnosis from Today's Visit Acute exacerbation of COPD Shortness of breath What to Do Next Instructions from Your Care Team No qualifying data available. Post Acute Orders No qualifying data available. You Need to Schedule the Following Appoi ntments Follow Up with Go to emergency room if s ymptoms worsen When Within 2-4 days Follow Up with ULISES HERMOSILLO MD When Within 2-4 days Where: [address] [place] [address]- Allergies NKA Medications Please ask your primary doct or or pharmacist before taking any other medication not listed, including over the counter drugs, herbal medications, vitamins and or supplements as they may interact with your home medications. What How Much When Why Instr uctions Last Dose New doxycycline (doxycycline hyclate 100 mg oral capsule) 1 cap by mouth Every 12 hours Acute exacerbation of COPD Duration: 7 Days Printed Prescription New predniSONE (predniSONE 20 mg oral ta blet) 2 tab(s) by mouth Once a day with a meal Acute exacerbation of COPD Duration: 7 Days Printed Prescription Unchanged albuterol (albuterol MDI (90 m cg/ inh) CFC free inhalation aerosol) 2 puff(s) by inhalation Four (4) times a day as needed for as ne eded for wheezing Unchanged amLODIPine (amLODIPine 10 mg o ral tablet) 1 tab(s) by mouth Once a day Unchanged aspirin 81 Milligram Chewed Once a day Unchanged atorvastatin (atorvastatin 80 mg oral tablet) 1 tab(s) by mouth Once a day Unchanged budesonide-formoterol (Symbico rt 160 mcg-4.5 mcg/ inh Inhaler) 2 puff(s) by inhalation Two (2) times a day Unchanged carvedilol (carvedilol 6.25 mg oral tablet) 1 tab(s) by mouth Two (2) times a day Unchanged clopidogrel (clopidogrel 75 mg oral tablet) 1 tab(s) by mouth Every day Unchanged isosorbide mononit rate (isosorbide mononitrate 30 mg oral tablet, extended release) 1 tab(s) by mouth Once a day (in the morning) Unchanged lisinopril (lisinopril 40 mg o ral tablet) 1 tab(s) by mouth Once a day Unchanged omeprazole (omeprazole 40 mg o ral delayed release capsule) 1 cap by mouth Once a day Unchanged traZODone (traZODone 100 mg or al tablet) 1 tab(s) by mouth Daily at bedtime Unchanged venlafaxine (venlafaxine 150 m g oral capsule, extended release) 1 cap by mouth Once a day Please take this list to you r next doctor s visit. Bring all medications you take, including over the counter medications, herbals and other supplements with you to your doctor s visit. Patients and fam ilies are reminded to discar d old lists and to update any records with all medication providers or retail pharmacies. Medication Leaflets budesonide and formoterol (inhalation) (dunia STEVENS oh nide and mariluz marcos) Symbicort What is the most important information I should know about budesonide and formoterol? Budesonide and formoterol i s not a rescue medicine for asthma attacks. Seek medical attention if your breathing problems get worse quickly, or if you think your asthma medications are not working as well. What is budesonide and formoterol inhal ation? Formoterol is a long-acting bronchodila tor. Budesonide is a steroid. Budesonide and formoterol i s a combination medicine used to control and prevent the symptoms of asthma in adults and children at least 6 years old. Budesonide and formoterol i s also used to help control the symptoms of chronic obstructive pulmonary disease (COPD), including chronic bronchitis and emphysema. This medicine is not for use in treatin g an asthma or bronchospasm attack. Formoterol when used alone may increase the risk of in people with asthma. However, this risk is not increased when budesonide and formoterol are used together as a combination product. Budesonide and formoterol m ay also be used for purposes not listed in this medication guide. What should I discuss with my healthcare provider before using budesonide and formoterol? You should not use this med icine if you are allergic to budesonide or formoterol. Budesonide can weaken your immune system. Tell your doctor about any illness or infection you've had within the past several weeks. Tell your doctor if you have ever had: heart disease, high blood pressure; a seizure; a weak immune system; liver disease; osteoporosis; glaucoma, cataracts, or other vision pr oblems; diabetes; a drug allergy; tuberculosis; a thyroid disorder; or an electrolyte imbalance (such as low p otassium levels in your blood). Tell your doctor if you are . It is not known whether this medicine will harm an unborn baby. However, having untreated or uncontrolled asthma during may cause complications such as l ow weight, premature b irth, or eclampsia (dangerously high blood pressure that can lead to medical problems in both mother and baby). The benefit of treating asthma may outweigh any risks to the baby. It may not be safe to breas tfeed while using this medicine. Ask your doctor about any risk. Budesonide and formoterol i s not approved for use by anyone younger than 6 years old. How should I use budesonide and formote rol? Follow all directions on yo ur prescription label and read all medication guides. Use the medicine exactly as directed. Using too much of this medicine can cause life-threatening side effects. If you also use an oral radha roid medication, you should not stop using it suddenly. Follow your doctor's instructions about tapering your dose. Budesonide and formoterol i s not a rescue medicine for asthma or bronchospasm attacks. Use only fast-acting inhalation medicine for an attack. Seek medical attention if your breathing problems get wors e quickly, or if you think your asthma m edications are not working as well. Read and carefully follow a ny Instructions for Use provided with your medicine. Ask your doctor or pharmacist if you do not understand these instructions. Do not allow a young child to use budesonide and formoterol without help from an adult. Rinse your mouth with water after each use of your inhaler. It may take up to 1 week be fore your symptoms improve. Keep using the medication as directed and tell your doctor if your symptoms do not improve. Your dose needs may change if you have surgery, are ill, are under stress, or have recently had an asthma attack. Do not change your medication dose or schedule without your doctor's advice. If you use a peak flow mete r at home, tell your doctor if your numbers are lower than normal. Store at room temperature i n an upright position, with the mouthpiece down. Keep away from open flame or high heat. The canister may explode if it gets too hot. Do not puncture or burn an empty inhaler canister. Throw the canister away whe n the inhalations counter shows a 0, or if it has been longer than 3 months since you first took the canister out of its foil pouch. What happens if I miss a dose? Skip the missed dose and us e your next dose at the regular time. Do not use two doses at one time. What happens if I overdose? Seek emergency medical atte ntion or call the Poison Help line at . Overdose symptoms may inclu de chest pain, fast heartbeats, and feeling shaky or nervous. What should I avoid while using budeson dariusz and formoterol? If this medication gets in your eyes, rinse with water and call your doctor if you have severe eye redness or irritation. Avoid being near people who are sick or have infections. Call your doctor for preventive treatment if you are exposed to chickenpox or measles. These conditions can be serious or even fatal in people who are using a steroid such as budesonide. Do not use a second inhaled bronchodilator that contains formoterol or a similar medicine (such as arformoterol, formoterol, indacaterol, olodaterol, salmeterol, or vilanterol). What are the possible side effects of b udesonide and formoterol? Get emergency medical help if you have signs of an allergic reaction: hives; difficulty breathing; swelling of your face, lips, tongue, or throat. Call your doctor at once if you have: worsened breathing problems; sores or white patches in your mouth a nd throat, pain when swallowing; tremors, nervousness, chest pain, fast or pounding heartbeats; cough with mucus, feeling short of maya th; wheezing, choking, or other breathing p roblems after using this medication; blurred vision, tunnel visi on, eye pain or redness, or seeing halos around lights; flu symptoms--fever, chills, body aches , unusual tiredness; high blood sugar--increased thirst, increased urination, dry mouth, fruity breath odor; low potassium level--leg cr amps, constipation, irregular heartbeats, fluttering in your chest, numbness or tingling, muscle weakness or limp feeling; or signs of a hormonal disorde r--tiredness or weakness, feeling light-headed, nausea, vomiting. Budesonide can affect growt h in children. Tell your doctor if your child is not growing at a normal rate while using this medicine. Common side effects may include: throat pain or irritation; white patches in your mouth or throat; stomach discomfort, vomiting; back pain, headache; flu symptoms; or cold symptoms such as stuff y or runny nose, sneezing, sinus pain, sore throat. This is not a complete list of side effects and others may occur. Call your doctor for medical advice about side effects. You may report side effects to FDA at 1-677-BQM-8672. What other drugs will affect budesonide and formoterol? Sometimes it is not safe to use certain medications at the same time. Some drugs can affect your blood levels of other drugs you take, which may increase side effects or make the medications less effective. Many drugs can affect budes onide and formoterol. This includes prescription and buqu-hyd-yqafuvt medicines, vitamins, and herbal products. Not all possible interactions are listed here. Tell your docto r about all your current medicines and a ny medicine you start or stop using. Where can I get more information? Your pharmacist can provide more inform ation about budesonide and formoterol. Remember, keep this and all other medicines out of the reach of children, never share your medicines with others, and use this medication only for the indication prescribed. Every effort has been made to ensure that the information provided by [employer]. [employer] is accurate, up-to-date, and complete, but no guarantee is made to that effect. Drug information con tained herein may be time se nsitive. [employer] information has been compiled for use by healthcare practitioners and consumers in the [place] and therefore [employer] does not warrant that uses outside o f the [place] are appr opriate, unless specifically indicated otherwise. [employer] drug information does not endorse drugs, diagnose patients or recommend therapy. [employer] drug information is an in formational resource designe d to assist licensed healthcare practitioners in caring for their patients and/or to serve consumers viewing this service as a supplement to, and not a substitute for, the ex pertise, skill, knowledge an d judgment of healthcare practitioners. The absence of a warning for a given drug or drug combination in no way should be construed to indicate that the drug or drug combinat ion is safe, effective or ap propriate for any given patient. [employer] does not assume any responsibility for any aspect of healthcare administered with the aid of information [employer] provides. The informat ion contained herein is not intended to cover all possible uses, directions, precautions, warnings, drug interactions, allergic reactions, or adverse effects. If you have questions about the drugs you a re taking, check with your doctor, nurse or pharmacist. Copyright 3023-4611 [employer]. Version: 9.02. Revision Date: 07/08/2019. prednisone (PRED sameer yu) Billy What is the most important information I should know about prednisone? You should not use predniso ne if you have a fungal infection anywhere in your body. You should not stop using p rednisone suddenly. Follow your doctor's instructions about tapering your dose. What is prednisone? Prednisone is a steroid nba t reduces inflammation in the body, and also suppresses your immune system. Prednisone is used to treat many different conditions such as hormonal disorders, skin diseases, arthritis, lupus, psoriasis, allergic conditions, ulcerative colitis, Crohn's disease, eye diseases, hamilton g diseases, asthma, tubercul osis, blood cell disorders, kidney disorders, leukemia, lymphoma, multiple sclerosis, organ transplant rejection, swelling from a brain tumor or injury. Prednisone may also be used for purpose s not listed in this medication guide. What should I discuss with my healthcar e provider before taking prednisone? You should not use predniso ne if you are allergic to it, or if you have a fungal infection anywhere in your body. Steroid medication can weak en your immune system, making it easier for you to get an infection or worsening an infection you already have. Tell your doctor about any illness or infection you've had within the past several weeks. Tell your doctor if you have ever had: heart problems, high blood pressure, or a heart attack; glaucoma or cataracts; herpes infection of the eyes; past or present tuberculosis; a parasite infection that causes diarrh ea (such as threadworms); any illness that causes diarrhea; underactive thyroid; diabetes; a stomach ulcer, diverticulitis; a colostomy or ileostomy; osteoporosis or low bone mi neral density (steroid medication can increase your risk of bone loss); low levels of calcium or potassium in y our blood; cirrhosis or other liver disease; mental illness or psychosis; or a muscle disorder such as myasthenia gr tete. Long-term use of steroids m ay lead to bone loss (osteoporosis), especially if you smoke or drink alcohol, if you do not exercise, or if you do not get enough vitamin D or calcium in your diet. It is not known whether thi s medicine will harm an unborn baby. Tell your doctor if you are or plan to become . You should not breastfeed while using p rednisone. How should I take prednisone? Follow all directions on yo prescription label and read all medication guides or instruction sheets. Your doctor may occasionally change your dose. Use the medicine exactly as directed. Prednisone is taken daily o r every other day, depending on the condition being treated. You may need to take the medicine at a certain time of day. Follow your doctor's instructions about when and how often to take this medicine. Take with food if prednisone upsets you r stomach. Measure liquid medicine car efully. Use the dosing syringe provided, or use a medicine dose-measuring device (not a kitchen spoon). Swallow the delayed-release tablet whol e and do not crush, chew, or break it. Prednisone can weaken (supp ress) your immune system, and you may get an infection more easily. Call your doctor if you have signs of infection (fever, weakness, cold or flu symptoms, skin sores, diarrhea, frequent or recurring illness). If you have major surgery o r a severe injury or infection, your prednisone dose needs may change. Make sure any doctor caring for you knows you are using this medicine. If you use this medicine lo ng-term, you may need medical tests and vision exams. In case of emergency, wear or carry medical identification to let others know you use a steroid. You should not stop using p rednisone suddenly. Follow your doctor's instructions about tapering your dose. Store at room temperature away from fred sture, heat, and light. What happens if I miss a dose? Take the medicine as soon a s you can, but skip the missed dose if it is almost time for your next dose. Do not take two doses at one time. What happens if I overdose? Seek emergency medical atte ntion or call the Poison Help line at . High doses or long-term use of prednisone can lead to thinning skin, easy bruising, changes in body fat (especially in your face, neck, back, and waist), increased acne or facial hair, menstrual problems, impotence, or loss of interest in sex. What should I avoid while taking predni sone? Do not receive a 'live' vac cine while using prednisone. The vaccine may not work as well and may not fully protect you from disease. Live vaccines include measles, mumps, rubella (MMR), polio, rotaviru s, typhoid, yellow fever, va ricella (chickenpox), zoster (shingles), and nasal flu (influenza) vaccine. Avoid being near people who are sick or have infections. Call your doctor for preventive treatment if you are exposed to chickenpox or measles. These conditions can be serious or even fatal in people who are using steroid medicine. Avoid drinking alcohol. What are the possible side effects of p rednisone? Get emergency medical help if you have signs of an allergic reaction: hives; difficult breathing; swelling of your face, lips, tongue, or throat. Call your doctor at once if you have: muscle pain or weakness; blurred vision, tunnel vision, eye pain , or seeing halos around lights; severe depression, changes in personali ty, unusual thoughts or behavior; bloody or tarry stools, cou ghing up blood or vomit that looks like coffee grounds; swelling, rapid weight gain, feeling sh ort of breath; irregular heartbeats; severe headache, pounding in your neck or ears; decreased adrenal gland hor killian--muscle weakness, tiredness, diarrhea, nausea, menstrual changes, skin discoloration, craving salty foods, and feeling light-headed; or low potassium level--leg cr amps, constipation, irregular heartbeats, fluttering in your chest, increased thirst or urination, numbness or tingling, muscle weakness or limp feeling. Prednisone can affect growt h in children. Tell your doctor if your child is not growing at a normal rate while using this medicine. Common side effects may include: weight gain (especially in your face or your upper back and torso); increased appetite; mood changes, trouble sleeping; changes in your menstrual periods; problems with memory or thought; muscle or joint pain; weakness; headache, dizziness, spinning sensation ; nausea, bloating, loss of appetite; slow wound healing; or acne, increased sweating, t hinning skin, bruising, pinpoint spots under your skin. This is not a complete list of side effects and others may occur. Call your doctor for medical advice about side effects. You may report side effects to FDA at 9-578-YJA-6526. What other drugs will affect prednisone ? Sometimes it is not safe to use certain medications at the same time. Some drugs can affect your blood levels of other drugs you take, which may increase side effects or make the medications less effective. Tell your doctor about all your current medicines. Many drugs can affect prednisone, especially: bupropion; cyclosporine; digoxin; ketoconazole; an antibiotic; control pills or hormone replacem ent therapy; a diuretic or 'water pill'; insulin or oral diabetes medicine; a blood thinner--warfarin, Coumadin, Ja ntoven; or NSAIDs (nonsteroidal anti-i nflammatory drugs)--aspirin, ibuprofen (Advil, Motrin), naproxen (Aleve), celecoxib, diclofenac, indomethacin, meloxicam, and others. This list is not complete a nd many other drugs may affect prednisone. This includes prescription and nbbg-uad-yhjvsbu medicines, vitamins, and herbal products. Not all possible drug interactions are listed here. Where can I get more information? Your pharmacist can provide more inform ation about prednisone. Remember, keep this and all other medicines out of the reach of children, never share your medicines with others, and use this medication only for the indication prescribed. Every effort has been made to ensure that the information provided by [employer] is accurate, up-to-date, and complete, but no guarantee is made to that effect. Drug information con tained herein may be time se nsitive. [employer] information has been compiled for use by healthcare practitioners and consumers in the [place] and therefore [employer] does not warrant that uses outside o f the [place] are appr opriate, unless specifically indicated otherwise. [employer]'s drug information does not endorse drugs, diagnose patients or recommend therapy. [employer] drug information is an in formational resource designe d to assist licensed healthcare practitioners in caring for their patients and/or to serve consumers viewing this service as a supplement to, and not a substitute for, the ex pertise, skill, knowledge an d judgment of healthcare practitioners. The absence of a warning for a given drug or drug combination in no way should be construed to indicate that the drug or drug combinat ion is safe, effective or ap propriate for any given patient. [employer] does not assume any responsibility for any aspect of healthcare administered with the aid of information [employer] provides. The informat ion contained herein is not intended to cover all possible uses, directions, precautions, warnings, drug interactions, allergic reactions, or adverse effects. If you have questions about the drugs you a re taking, check with your doctor, nurse or pharmacist. Copyright 7237-7251 [employer]. Version: 10.. Revision Date: 02/05/2019. doxycycline (oral/injection) (DOX i SYE kleen) Acticlate, Adoxa, Alodox, Av idoxy, Doryx, Mondoxyne NL, Monodox, Morgidox, Okebo, Oracea, Oraxyl, Targadox, Vibramycin What is the most important information I should know about doxycycline? You should not take this me dicine if you are allergic to any tetracycline antibiotic. Children younger than 8 yea rs old should use doxycycline only in cases of severe or life-threatening conditions. This medicine can cause permanent yellowing or graying of the teeth in children Using doxycycline during pr egnancy could harm the unborn baby or cause permanent tooth discoloration later in the baby's life. What is doxycycline? Doxycycline is a tetracycline antibioti c that Doxycycline is used to lynda t many different bacterial infections, such as acne, urinary tract infections, intestinal infections, eye infections, gonorrhea, chlamydia, periodontitis (gum disease), and others. Doxycycline is also used to treat blemishes, bumps, and acne-like lesions caused by rosacea. Doxycycline will not treat facial redness caused by rosacea. Some forms of doxycycline a re used to prevent malaria, to treat anthrax, or to treat infections caused by mites, ticks, or lice. Doxycycline may also be use d for purposes not listed in this medication guide. What should [facility] before taking do[facility]ine? You should not take this me dicine if you are allergic to doxycycline or other tetracycline antibiotics such as demeclocycline, minocycline, tetracycline, or tigecycline. Tell your doctor if you have ever had: liver disease; kidney disease; asthma or sulfite allergy; increased pressure inside your skull; o r if you also take isotretino in, seizure medicine, or a blood thinner such as warfarin (Coumadin). If you are using doxycyclin e to treat gonorrhea, your doctor may test you to make sure you do not also have syphilis, another sexually transmitted disease. Taking this medicine during may affect tooth and bone development in the unborn baby. Taking doxycycline during the last half of can cause permanent tooth discoloration later in the baby's life. Tell your doctor if you ar e or if you become . Doxycycline can make control pills less effective. Ask your doctor about using a non-hormonal control (condom, diaphragm with spermicide) to prevent . Doxycycline can pass into b reast milk and may affect bone and tooth development in a nursing infant. Do not breastfeed while you are taking doxycycline. Doxycycline can cause perma nent yellowing or graying of the teeth in children younger than 8 years old. Children should use doxycycline only in cases of severe or life-threatening conditions such as an thrax or [place] spot gilda fever. The benefit of treating a serious condition may outweigh any risks to the child's tooth development. How should I take doxycycline? Follow all directions on yo prescription label and read all medication guides or instruction sheets. Use the medicine exactly as directed. Take doxycycline with a ful l glass of water. Drink plenty of liquids while you are taking doxycycline. Read and carefully follow a ny Instructions for Use provided with your medicine. Ask your doctor or pharmacist if you do not understand these instructions. Most brands of doxycyline m ay be taken with food or milk if the medicine upsets your stomach. Different brands of doxycyc line may have different instructions about taking them with or without food. Take Oracea on an empty sto mach, at least 1 hour before or 2 hours after a meal. You may need to split a dox ycycline tablet to get the correct dose. Follow your doctor's instructions. Swallow a delayed-release c apsule or tablet whole. Do not crush, chew, break, or open it. Measure liquid medicine wit h the dosing syringe provided, or with a special dose-measuring spoon or medicine cup. If you do not have a dose-measuring device, ask your pharmacist for one. If you take doxycycline to prevent malaria: Start taking the medicine 1 or 2 days before entering an area where malaria is common. Continue taking the medicine every day during your stay and for at least 4 weeks after you leave the area. Doxycycline is usually give n by injection only if you are unable to take the medicine by mouth. A healthcare provider will give you this injection as an infusion into a vein. Use this medicine for the f ull prescribed length of time, even if your symptoms quickly improve. Skipping doses can increase your risk of infection that is resistant to medication. Doxycycline will not treat a viral infection such as the flu or a common cold. Store at room temperature away from fred sture, heat, and light. Throw away any unused medic ine after the expiration date on the label has passed. Using doxycycline can cause damage to your kidneys. What happens if I miss a dose? Take the medicine as soon a s you can, but skip the missed dose if it is almost time for your next dose. Do not take two doses at one time. What happens if I overdose? Seek emergency medical atte ntion or call the Poison Help line at . What should I avoid while taking doxycy eden? Do not take iron supplement s, multivitamins, calcium supplements, antacids, or laxatives within 2 hours before or after taking doxycycline. Avoid taking any other anti biotics with doxycycline unless your doctor has told you to. Doxycycline could make you sunburn more easily. Avoid sunlight or tanning beds. Wear protective clothing and use sunscreen (SPF 30 or higher) when you are outdoors. Antibiotic medicines can ca use diarrhea, which may be a sign of a new infection. If you have diarrhea that is watery or bloody, call your doctor. Do not use anti-diarrhea medicine unless your doctor tells you to. What are the possible side effects of d oxycycline? Get emergency medical help if you have signs of an allergic reaction (hives, difficult breathing, swelling in your face or throat) or a severe skin reaction (fever, sore throat, burning in your eyes, s kin pain, red or purple skin rash that spreads and causes blistering and peeling). Seek medical treatment if y ou have a serious drug reaction that can affect many parts of your body. Symptoms may include: skin rash, fever, swollen glands, flu-like symptoms, muscle aches, severe weakn ess, unusual bruising, or ye llowing of your skin or eyes. This reaction may occur several weeks after you began using doxycycline. Call your doctor at once if you have: severe stomach pain, diarrhea that is w atery or bloody; throat irritation, trouble swallowing; chest pain, irregular heart rhythm, fee ling short of breath; little or no urination; low white blood cell counts --fever, chills, swollen glands, body aches, weakness, pale skin, easy bruising or bleeding; increased pressure inside t he skull--severe headaches, ringing in your ears, dizziness, nausea, vision problems, pain behind your eyes; or signs of liver or pancreas problems--loss of appetite, upper stomach pain (that may spread to your back), tiredness, nausea or vomiting, fast heart rate, dark urine, jaundice (yellowing of the skin or eyes). Common side effects may include: nausea, vomiting, upset stomach, loss o f appetite; mild diarrhea; skin rash or itching; darkened skin color; or vaginal itching or discharge. This is not a complete list of side effects and others may occur. Call your doctor for medical advice about side effects. You may report side effects to FDA at 1-565-PUX-7375. What other drugs will affect doxycyclin e? Sometimes it is not safe to use certain medications at the same time. Some drugs can affect your blood levels of other drugs you take, which may increase side effects or make the medications less effective. Other drugs may affect doxy cycline, including prescription and bbdl-nys-ppxgeki medicines, vitamins, and herbal products. Tell your doctor about all your current medicines and any medicine you start or stop using. Where can I get more information? Your pharmacist can provide more inform ation about doxycycline. Remember, keep this and all other medicines out of the reach of children, never share your medicines with others, and use this medication only for the indication prescribed. Every effort has been made to ensure that the information provided by [employer]. ('[employer]') is accurate, up-to-date, and complete, but no guarantee is made to that effect. Drug information con tained herein may be time se nsitive. [employer] information has been compiled for use by healthcare practitioners and consumers in the [place] and therefore [employer] does not warrant that uses outside o f the [place] are appr opriate, unless specifically indicated otherwise. [employer] drug information does not endorse drugs, diagnose patients or recommend therapy. [employer] drug information is an in formational resource designe d to assist licensed healthcare practitioners in caring for their patients and/or to serve consumers viewing this service as a supplement to, and not a substitute for, the ex pertise, skill, knowledge an d judgment of healthcare practitioners. The absence of a warning for a given drug or drug combination in no way should be construed to indicate that the drug or drug combinat ion is safe, effective or ap propriate for any given patient. [employer] does not assume any responsibility for any aspect of healthcare administered with the aid of information [employer] provides. The informat ion contained herein is not intended to cover all possible uses, directions, precautions, warnings, drug interactions, allergic reactions, or adverse effects. If you have questions about the drugs you a re taking, check with your doctor, nurse or pharmacist. Copyright 3638-6593 Pk [employer]. Version: .. Revision Date: 09/14/2020. Education Materials COPD Flare You have had a flare-up of your COPD. COPD (chronic obstructive pu lmonary disease) is a common lung disease. It causes your airways to get irritated and narrower. This makes it harder for you to breathe. Emphysema and chronic bronchitis are both types of COPD. This is a long-term (chronic) condition. This means you always have it. Sometimes it gets worse. When this happens, it is called a flare-up. Symptoms of COPD People with COPD may have sy mptoms most of the time. In a flare-up, your symptoms get worse. These symptoms may mean you are having a flare-up: Shortness of breath, shallow or rapid b reathing, or wheezing that gets worse Lung infection Cough that gets worse More mucus, thicker mucus or mucus of a different color Tiredness, less energy, or trouble doin g your normal activities Fever Chest tightness Your symptoms don t get bet ter even when you use your normal medicines, inhalers, and nebulizer Trouble talking You feel confused Causes of flare-ups Unfortunately, a flare-up ca n happen even if you did everything right. And even if you followed your healthcare provider s instructions. Some causes of flare- ups are: Smoking or secondhand smoke Colds, the flu, or respiratory infectio ns Air pollution Sudden change in the weather Dust, irritating chemicals, or strong f umes Not taking your medicines as prescribed Home care Here are some things you can do at home to treat a flare-up: Try not to panic. This make s it harder to breathe, and keeps you from doing the right things. Don t smoke or be around others who are smoking. Try to drink more fluids th an normal during a flare-up, unless your healthcare provider has told you not to because of heart and kidney problems. More fluids can help loosen the mucus. Use your inhalers and nebulizer, if you have one, as you have been told to. If you were given antibioti cs, take them until they are used up or your provider tells you to stop. It s important to finish the antibiotics, even though you feel better. This will make sure the infection has cleared. If you were given prednison e or another steroid, finish it even if you feel better. Preventing a flare-up Flare-ups happen. But the be st way to treat one is to prevent it before it starts. Here are some pointers: Don t smoke or be around others who are smoking. Take your medicines as discussed with y our healthcare provider. Talk with your provider abo ut getting a flu shot every year. Also find out if you need a pneumonia shot. If there is a weather advis ory warning to stay indoors, try to stay inside when possible. Try to eat healthy, exercise, and get p lenty of sleep. Try to stay away from thing s that normally set you off. These include dust, chemical fumes, hairsprays, or strong perfumes. Follow-up care Follow up with your healthcare provider, or as advised. If a culture was done, you w ill be told if your treatment needs to be changed. You can call as directed for the results. If X-rays were done, you vera l be told of any new findings that may affect your care. Call 911 Call 911 if any of these occur: You have trouble breathing You feel confused or it s hard to wake you up You faint or lose consciousness You have a rapid heart rate You have new pain in your chest, arm, s houlder, neck, or upper back When to seek medical advice Call your healthcare provider right away if any of these occur: Wheezing or shortness of breath gets wo rse You need to use your inhalers more ofte n than normal without relief Fever of 100.4 F (38 C) or higher, or a s directed by your healthcare provider Coughing up lots of dark-colored or blo zandra mucus (sputum) Chest pain with each breath You don't start to get better within 24 hours Swelling of your ankles gets worse Dizziness or weakness 4775-2012 [employer]. [address] [place] [address], [place] [address]. All rights reserved. This information is not intended as a substitute for professional medical care. Always follow your healthcare professional's instructions. Additional Information VACCINATE! IT SAVES LIVES! Members of the community who have not yet received the COVID-19 vaccine and would like to receive it can visit one of [facility] vaccine clinics. There are many vaccine clinic locations within the [facility]. For locations and available times, please visit [email or web address]. It is important to note that some COVID mobile vaccine clinics are held outdoors and may be canceled in rainy or stormy conditions. To learn more about pediatr ic vaccinations (ages 5-11), we invite you to visit the [facility] webpage. [email or web address] T o learn more about the COVID -19 vaccine, we invite you to visit the [employer] website for a list of frequently asked questions. [email or web address] [place] [facility] Patient Portal Access I nstructions: Stay connected with your [facility] team and access your personal medical information anytime with the [facility] Patient Portal. If you would like a full copy of your medical records please conta ct the [facility] Records Department Saturday through Saturday between 8a.m. and 4:30p.m. Please follow the directions below to access the portal: 1.Access the email account y vivienne provided upon registration to the hospital.2.Look for an invitation email from [facility].3.Open the email and access the invitation link: Accept Invitation to [facility].Fill in the required randle to create your account. Sign into [email or web address] wi th your username and password that you created in the above steps to stay up to date. You can then view a summary of results, a summary of your visits, and the ability to isaiah nload your summaries to your computer or send the information securely to a physician. Remember that your healthcare information is confidential, so carefully consider who you will allow to register on the [facility] Patient Portal for access to your information. You can also access the [facility] Patient Portal on the [employer] larissa. Simply click on Health Records under Health Data and then click on the [employer] logo. HOW TO SAFELY DISPOSE OF PRESCRIPTION ME DICATIONS Please use one of the follow ing methods to safely dispose of your unused medications. 1.Use a drug disposal kit: t he drug disposal pouch allows you to safely discard your old and unused drugs. Ask your nurse to give you one when you are discharged.2.Visit a local take-back location: Many local pharmacies and police departments have programs that collect old and unwanted prescription drugs. Call your local pharmacy or go to http://Panraven.Baydin/2T3Ai9r to find one close to you.3.Make use of ho usehold items: Use cat litte r or old coffee grounds to dispose medications if other options are not available. Mix your drugs with these household products, seal them in an airtight container and throw it into the garbage. Call [place] EPA: [phone] to be sure your drugs can be disposed of in this way. Some medicines may require a different approach.4.Never flush your medications down the toilet. IF YOU HAVE BEEN PRESCRIBED AN OPIOIDS F OR PAIN If you have been prescribed an opioid (such as hydrocodone, oxycodone or morphine), it is critical to understand the possible side effects and risks of opioid pain medications. Even when taken as direct ed, opioids can have several side effect s including: Tolerance, meaning you migh t need to take more of a medication for the same pain relief. Nausea, vomiting and/or constipation. Sleepiness, dizziness, dry mouth, confusion, depression or itching. Physic al dependence, meaning you h ave withdrawal symptoms when a medication is stopped ? this can develop within a few days. KNOW YOUR RESPONSIBILITIES It is important to know exac tly how much and how often to take the opioid pain medications you are prescribed. Never take opioids in higher amounts or more often than prescribed. Do not combine opioids with alcohol or other drugs that cause drowsiness, such as benzodiazepines, also known as benzos, including diazepam and alprazolam, muscle relaxants or sleep aids. Never sell or share prescription opio ids. This is illegal. Store opioids in a secure place and out of reach of others (including children, family, friends and visitors). The last page(s) of this document has be en signed and retained as a CHART COPY Signatures Patient Education Materials COPD Flare Medication Leaflets budesonide and formoterol (i nhalation), prednisone, doxycycline (oral/injection) My discharge plan and instru ctions have been reviewed and explained to me and I,VINCE KOENIG understand my current condition and have read and understand these discharge instructions. I have recei alhaji a written copy of the pl an/instructions. If I have questions, I am aware that I should contact my doctor. 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 Signature: (more content not included)... 10-26-2022 Note [facility] ORIGINAL EXAMINATION: ONE XRAY VIEW OF THE CHEST10/26/2022 6:3 4 pm CHEST ONE VIEW AP/PA COMPARISON: 05/02/2022 chest x-ray and 08/05/2012 CT scan. HISTORY: ORDERING SYSTEM PROVIDED HISTORY: Reason for Exam: cough, sob FINDINGS: Heart size and vascularity are within no rmal limits. The lungs are clear of focal consolidati on. No effusion, pneumothorax, or acute osseous abnormality. Old right-laurie ed posterior 9th and 10th rib fractures are stable. IMPRESSION: No radiographic evidence of acute cardio pulmonary process. Interpreted by: Zaid Mckeon MD Preliminary Report By: Zaid Mckeon MD Electronically signed By Zaid silver MD Dictated Date: 10/26/2022 7:05:14 PM Prelim Date: 10/26/2022 7:06:29 PM Sign Date: 10/26/2022 7:06:29 PM Ordering Provider: BRIAN TRINIDAD 10-26-2022 Note [facility] ORIGINAL EXAMINATION: ONE XRAY VIEW OF THE CHEST10/26/2022 6:3 4 pm CHEST ONE VIEW AP/PA COMPARISON: 05/02/2022 chest x-ray and 08/05/2012 CT scan. HISTORY: ORDERING SYSTEM PROVIDED HISTORY: Reason for Exam: cough, sob FINDINGS: Heart size and vascularity are within no rmal limits. The lungs are clear of focal consolidati on. No effusion, pneumothorax, or acute osseous abnormality. Old right-laurie ed posterior 9th and 10th rib fractures are stable. IMPRESSION: No radiographic evidence of acute cardio pulmonary process. Interpreted by: Zaid Mckeon MD Preliminary Report By: Zaid Mckeon MD Electronically signed By Zaid silver MD Dictated Date: 10/26/2022 7:05:14 PM Prelim Date: 10/26/2022 7:06:29 PM Sign Date: 10/26/2022 7:06:29 PM Ordering Provider: BRIAN TRINIDAD 10-26-2022 SARS-CoV-2 Negative AO Auto Urine SS (COVID-19) RNA IVANA+probe Ql *NA* (Nph) (10/26/22 5:52 PM) 10-02-2022 Note HNO ID: [id number] [facility] Author: Tawny Self DO Abdul Service: Vascular Surgery Author Type: Physician Type: Progress Notes Filed: 10/15/2022 2:42 PM Note Text: NAME: VINCE KOENIG CLINIC NO: [id number] DATE OF SERVICE: 10/02/2022 Subjective: Vince is here to follow up on peripheral arterial disease. She has a history of right common femora l endarterectomy and iliac intervention by Dr. Rodriges in 2018. Rosalva brown was last seen by Dr. Rodriges in 2020. She reports kind of feeling lik e her right toes are getting sluggish and a little bit stiff, which w as similar to the findings she had prior to her femoral endarterectomy. Otherwise, she denies any new complaints. Her walking, she states, is mostly limited by shortness of breath. She does continue to smoke about a pack a day. She denies tissue loss. She states her right leg st ill is a little bit more symptomatic than her left leg. Objective: Her vital signs are stable. S he is in no distress. She has nonpalpable distal pulses. No ulceration s or tissue loss. Cap refill is 3-4 seconds. She has biphasic Doppler PT and DP bilaterally. Her PVRs, her right is 0.59, which is stable, and her left is 0.58, which has been stable since her intervention. Assessment/Plan: Peripheral arterial disease. Recommend t mirna Clarke continue her current medications, continue cholesterol and bl ood pressure control. Recommend that she follow up with us in six months with repeat imaging, or sooner with any concerns. We stressed the impor tance of smoking cessation. She is agreeable to this plan. She will foll ow up sooner with any concerns. Tawny Self D.O. KB/089 Audio #: [id number] Date Dictated: 10/02/2022 09:31:07 Date Typed: 10/08/2022 10:11:23 Date Revised: 10-02-2022 Note HNO ID: [id number] [facility] Author: Tawny Self DO [place] Service: ? Author Type: Physician Type: Progress Notes Filed: 10/02/2022 10:38 AM Note Text: This office note has been dictated. Tawny Self DO 10-02-2022 History of Present [facility] illness Narrative This office note has been dictated. Tawny Self DO documented in this encounter 09-24-2022 Miscellaneous Formatting of this note migh t be different from the original. [facility] Notes Spoke with pt and confirmed appt on 09/11 5 Electronically signed by Linda agarwal 09/24/2022 11:11 AM EST Formatting of this note might be differe nt from the original. Scheduled pt. Tried calling pt twice to inform them of scheduled test on 09/25/22 at 2:30 When pt returns call please check that t his appointment works for them. Once completed please document in this e ncounter. Thank You! Linda Olea' Electronically signed by Linda agarwal 09/21/2022 5:03 PM EST Formatting of this note might be differe nt from the original. Ordered placed. Formatting of this note might be differe nt from the original. PT calling in again to sched ule DAMIR US. Order still shows as closed and unable to schedule at this time. Please fix order and once done please re ach out to pt to schedule. Pt stats that her legs have gotten worse. Her toes are sluggish and its hard for her to even wiggle them. Pt also states having tingling in toes. Please reach out to pt as soon as able. Thank you! Linda Olea Electronically signed by Linda agarwal 09/21/2022 2:49 PM EST documented in this encounter 09-19-2022 Miscellaneous Formatting of this note migh t be different from the original. [facility] Notes Patient called to reschedule damir lab testing from 07/13. Unable to schedule, stated 09/11. Please place new orders and advise patient for scheduling. documented in this encounter 09-05-2022 Note HNO ID: [id number] [facility] Author: Ulises Hermosillo MD [place] Service: ? Author Type: Physician Type: Progress Notes Filed: 09/05/2022 9:44 PM Note Text: Patient presents with: Pain: Mouth pain x 1 week Vince Koenig was here for above. Rosalva brown developed general soreness in her gums and mouth after she had a flu s hot. She had trouble eating and chewing. She had not taken any thing for her symptoms. She was under stress due to the of her brother jarred carney. ROS; No cold, no fever, no dysphagia. 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 ([facility]) Bipolar Affective Disorder, Currently Ac tive ([facility]) History of Alcohol Abuse Chronic bronchitis ([facility]) Spinal Stenosis, Lumbar Region Without N eurogenic Claudication Radiculopathy, Lumbar Region Smoker Gerd (Gastroesophageal Reflux Disease) Seasonal Allergies Pad (Peripheral Artery Disease) ([facility]) Anxiety and Depression Prediabetes Chest Pain Other Chest Pain Stenosis of Carotid Artery Mixed Hyperlipidemia Abnormal Stress Test Dyspnea On Exertion Coronary Artery Disease Involving [place] Coronary Artery of [place] Heart Without Angina Pectoris Lung Nodule Current Outpatient Medications Medication Sig nystatin (MYCOSTATIN) 100,000 unit/mL toure spension Take 5 mL by mouth four times daily. 1tsp swish in mouth for sev eral minutes, then swallow (or expectorate) 4 times daily until gone. acetaminophen (TYLENOL EXTRA STRENGTH) 5 00 mg tablet Take 1 tablet by mouth every 8 hours as needed for pain. venlafaxine ER (EFFEXOR XR) 150 mg 24 hr capsule Take 1 capsule by mouth once daily. Take with 75 mg capsule to = 225 mg atorvastatin (LIPITOR) 80 mg tablet Take 1 tablet by mouth once daily. carvedilol (COREG) 6.25 mg tablet Take 1 tablet by mouth twice daily. Olopatadine (PATADAY ONCE DAILY RELIEF) 0.2 % drop Use 1 Drop in both eyes once daily. lisinopril (ZESTRIL, PRINIVIL) 40 mg tab let Take 1 tablet by mouth once daily. LORazepam (ATIVAN) 1 mg tablet Take 1 ta blet by mouth every 8 hours as needed for anxiety for up to 90 days. venlafaxine ER (EFFEXOR XR) 75 mg 24 hr capsule Take 1 capsule by mouth once daily. Take with 150 mg capsule to =150 mg triamcinolone acetonide (KENALOG) 0.1 % cream Apply 1 application to affected area three times daily. Apply s paringly to area for rash/itching. traZODone (DESYREL) 100 mg tablet Take 2 tablets by mouth daily at bedtime. nkhuoprqsoo-baxynjtki-yaipomje (TRELEGY ELLIPTA) 200-62.5-25 mcg inhalation powder Inhale 1 Puff as instr ucted once daily. albuterol HFA (VENTOLIN HFA) 90 mcg/actu ation inhaler Inhale 2 Puffs as instructed every 6 hours as needed for w heezing/shortness of breath. amLODIPine (NORVASC) 10 mg tablet TAKE 1 TABLET BY MOUTH EVERY DAY omeprazole (PRILOSEC) 40 mg capsule Take 1 capsule by mouth once daily. isosorbide mononitrate ER (IMDUR) 30 mg 24 hr tablet TAKE 1 TABLET BY MOUTH EVERY DAY aspirin 81 mg chewable tablet Take 1 tab let by mouth once daily. clopidogrel (PLAVIX) 75 mg tablet Take 1 tablet by mouth once daily. No current facility-administered medicat ions for this visit. BP 132/82 Pulse 95 Wt 59.9 kg (132 l b) LMP (LMP Unknown) SpO2 98% BMI 22.79 kg/m? PE: General: no acute distress. Mouth: erythema, scattered white plaques in gums, oral mucosa. Throat: clear. Neck: no cervical adenopathy. Lung: Clear. ASSESSMENT/PLAN: 1. Thrush (oral) - ICD9: 112.0, ICD10: B 37.0 (primary diagnosis) - NYSTATIN 100,000 UNIT/ML ORAL SUSPENSI ON - ACETAMINOPHEN 500 MG TABLET 2. Prediabetes - ICD9: 790.29, ICD10: R7 3.03 Do labs today. 3. Essential hypertension - ICD9: 401.9, ICD10: I10 - fair control Ulises Hermosillo MD 09-05-2022 History of Present [facility] illness Narrative Patient presents with: Pain: Mouth pain x 1 week Vince Koenig was here f or above. She developed general soreness in her gums and mouth after she had a flu shot. She had trouble eating and chewing. She had not taken any thing for her symptoms. She was under stress due to the of he r brother from [place]. ROS; No cold, no fever, no dysphagia. 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 ([facility]) Bipolar Affective Disorder, Currently Ac tive ([facility]) History of Alcohol Abuse Chronic bronchitis ([facility]) Spinal Stenosis, Lumbar Region Without N eurogenic Claudication Radiculopathy, Lumbar Region Smoker Gerd (Gastroesophageal Reflux Disease) Seasonal Allergies Pad (Peripheral Artery Disease) ([facility]) Anxiety and Depression Prediabetes Chest Pain Other Chest Pain Stenosis of Carotid Artery Mixed Hyperlipidemia Abnormal Stress Test Dyspnea On Exertion Coronary Artery Disease Invo lving [place] Coronary Artery of [place] Heart Without Angina Pectoris Lung Nodule Current Outpatient Medications Medication Sig nystatin (MYCOSTATIN) 100,00 0 unit/mL suspension Take 5 mL by mouth four times daily. 1tsp swish in mouth for several minutes, then swallow (or expectorate) 4 times daily until gone. acetaminophen (TYLENOL EXTRA STRENGTH) 500 mg tablet Take 1 tablet by mouth every 8 hours as needed for pain. venlafaxine ER (EFFEXOR XR) 150 mg 24 hr capsule Take 1 capsule by mouth once daily. Take with 75 mg capsule to =225 mg atorvastatin (LIPITOR) 80 mg tablet Take 1 tablet by mouth once daily. carvedilol (COREG) 6.25 mg tablet Take 1 tablet by mouth twice daily. Olopatadine (PATADAY ONCE DA JA RELIEF) 0.2 % drop Use 1 Drop in both eyes once daily. lisinopril (ZESTRIL, PRINIVIL) 40 mg tab let Take 1 tablet by mouth once daily. LORazepam (ATIVAN) 1 mg tabl et Take 1 tablet by mouth every 8 hours as needed for anxiety for up to 90 days. venlafaxine ER (EFFEXOR XR) 75 mg 24 hr capsule Take 1 capsule by mouth once daily. Take with 150 mg capsule to =150 mg triamcinolone acetonide (MARCI ALOG) 0.1 % cream Apply 1 application to affected area three times daily. Apply sparingly to area for rash/itching. traZODone (DESYREL) 100 mg tablet Take 2 tablets by mouth daily at bedtime. urubxbncnrz-hzprertkd-dvtgok er (TRELEGY ELLIPTA) 200-62.5-25 mcg inhalation powder Inhale 1 Puff as instructed once daily. albuterol HFA (VENTOLIN HFA) 90 mcg/actuation inhaler Inhale 2 Puffs as instructed every 6 hours as needed for wheezing/shortness of breath. amLODIPine (NORVASC) 10 mg tablet TAKE 1 TABLET BY MOUTH EVERY DAY omeprazole (PRILOSEC) 40 mg capsule Take 1 capsule by mouth once daily. isosorbide mononitrate ER (I MDUR) 30 mg 24 hr tablet TAKE 1 TABLET BY MOUTH EVERY DAY aspirin 81 mg chewable tablet Take 1 tab let by mouth once daily. clopidogrel (PLAVIX) 75 mg tablet Take 1 tablet by mouth once daily. No current facility-administered medicat ions for this visit. BP 132/82 Pulse 95 Wt 59 .9 kg (132 lb) LMP (LMP Unknown) SpO2 98% BMI 22.79 kg/m PE: General: no acute distress. Mouth: erythema, scattered white plaques in gums, oral mucosa. Throat: clear. Neck: no cervical adenopathy. Lung: Clear. ASSESSMENT/PLAN: 1. Thrush (oral) - ICD9: 112.0, ICD10: B 37.0 (primary diagnosis) - NYSTATIN 100,000 UNIT/ML ORAL SUSPENSI ON - ACETAMINOPHEN 500 MG TABLET 2. Prediabetes - ICD9: 790.29, ICD10: R7 3.03 Do labs today. 3. Essential hypertension - ICD9: 401.9, ICD10: I10 - fair control Ulises Hermosillo MD documented in this encounter 09-05-2022 Miscellaneous Formatting of this note migh t be different from the original. [facility] Notes Patient calls in to report t hat she is having mouth pain with peeling gums and white patches. Nurse triage completed. Protocol recommends see provider within 3 days. Appointment scheduled this afternoon per patient request. Care advice review ed. Patient verbalizes understanding. Reason for Disposition [1] MILD-MODERATE mouth pain AND [2] pre sent > 3 days Answer Assessment - Initial Assessment Q uestions 1. ONSET: Noticed pain about a week ago but has been getting worse. Now has some peeling areas and white patches to the gums. Patient reports she wears dentures but hasn't used them in over a year so it isn't related to that. 2. SEVERITY: - MODERATE (4-7 ): interferes with eating some solids and normal activities 3. SORES: Patient reports th at her gums are peeling and she has white patchy areas. 4. FEVER: No 5. CAUSE: Patient not certai n but reports that the pain is worsening and it is getting more difficult to swallow certain foods and drinks. 6. OTHER SYMPTOMS: No difficulty with dr inking. Protocols used: Mouth [id number] documented in this encounter 08-31-2022 Note HNO ID: [id number] [facility] Author: Oly Smith APRN.LINDA Towanda Service: ? Author Type: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 negative. PHYSICAL EXAMINATION: BP 177/108 Pulse 89 Wt 133 lb (60.3k g) SpO2 98% General appearance: Alert, pleasant. Wel l-appearing, in no distress. Skin: Not pallorous. Not diaphoretic. No jaundice. HEENT: No palpable cervical or supraclavicular lymphadenopathy. No thyromegaly. Lungs: Clear to auscultation bilaterally. +wheeze at end of exhalation. No rales, or rhonchi. No pleural rub. Respiratory effort normal. Heart: Regular rate and rhyt hm. Normal heart tones. No murmur. No peripheral edema. Extremities: No edema. Adequate capillar y refill. No digital clubbing; Neuro: Alert. Oriented. Spee ch intact. Muscle strength grossly intact bilaterally The remainder of the physical exam is ot herwise negative. Data Review I have visually reviewed imaging and ronit ting below 07/26/22 02/03/21 CT was compared to prior CT chest. PFTS: Completed 06/06/22- sev ere obstruction with no significant bronchodilator response and a reduced DLCO Assessment and Plan: 1. Pulmonary Nodule: RUL 8.2 mm lung nodule identified on the last CT is stable (unchanged), and no new nodules of concern were seen on the exam. Final result LungRADS category 2 finding with recommended follow-up in one year. 2. Current Smoker: - The patient was counseled on the importance of smoking cessation if current smoker and, if appropriate, offered additional tobacco cessation counseling services - Smoking Cessation Counseling. - SMOKING CESSATION COUNSELING -Smoking cessation methods i ncluding Nicotine Replacement Therapies, Bupropion, Varenicline, and Behavior Modification were discussed with the patient and assistance offered. -The medical conditions adve rsely affected by cigarette use include: Lung Cancer, COPD -The patient is currently not ready to q uit. -I personally spent 5 minutes in career technical counselor ing. -The time spent in smoking c essation counseling is exclusive of any other counseling during this visit. Karly Garcia APRN.CNP July 31, 2022 11:12 AM I spent a total of 30 minute s on the date of the service which included preparing to see the patient, [id number] patient care, completing clinical documentation, obtaining and/or reviewing separately obtained history, performing a medically appropriate examination, counseling and educating the patient/family/caregiver, and communicating results to the patient/family/caregiver. Associated attestation - Savanna Dunne APRN.CNP - 07/31/2022 4:53 PM EDT Formatting of this note might be differe nt from the original. TEACHING PROVIDER (Physician/PA/MELISSA) NO TE OF PERSONAL INVOLVEMENT IN CARE: I have personally seen and e xamined the patient and performed the medical decision-making components. I have reviewed the Karly Loya 's documentation and verified the findings in the note as written. Any additions or changes are noted in b old/italics. Signature: Savanna Kenny APRN.CN P Date: 07/31/2022 Time: 4:53 PM documented in this encounter 07-26-2022 Note HNO ID: [id number] [facility] Author: YASSINE Hatch Service: Radiology Author Type: Technologist Type: Progress Notes Filed: 07/26/2022 4:25 PM Note Text: Radiology Service Progress Note PATIENT NAME: Vince Koenig DATE OF SERVICE: July 26, 2022 TIME: 4:24 PM PATIENT IDENTITY VERIFICATION COMPLETED USING TWO (2) IDENTIFIERS: Name and Date of confirmed by patient v erbally and Name and Date of confirmed by identification band. FALL SCREENING: Has the patient had 2 fa lls in the last year or 1 fall with injury or currently using an Ambula tory Assistive Device (Walker, Cane, Wheelchair, Crutches, etc.)? No PATIENT GENDER DATA: Female. s tatus: : No status: NO. PATIENT RELEVANT IMPLANT DATA REVIEWED: Not Applicable RADIOLOGY DEPARTMENT: CT; Exam(s) Comple gilda: Chest PERIPHERAL IV DATA: Not applicable SIGNED BY: Grace Pope YASSINE July 26, 2022 4:24 PM 07-24-2022 Miscellaneous Formatting of this note migh t be different from the original. [facility] Notes LM notifying patient Formatting of this note is different fro m the original. Not sure what is meant about the inhaler s. Approved as pended so at least gets what was pended. No refills on the Symbicort. The following approved medic ation requests have been transmitted electronically. Requested Prescriptions Signed Prescriptions Disp Refills traZODone (DESYREL) 100 mg tablet 60 tab let 5 Sig: Take 2 tablets by mouth daily at be dtime. Authorizing Provider: DAT RODNEY pezavkillpj-zzuwesckc-zcbeit er (TRELEGY ELLIPTA) 200-62.5-25 mcg inhalation powder 60 Each 11 Sig: Inhale 1 Puff as instructed once da ja. Authorizing Provider: DAT RODNEY budesonide-formoterol (SYMBICORT) 160-4. 5 mcg/actuation inhaler 1 Each 0 Sig: Inhale 2 Puffs as instructed twice daily. Authorizing Provider: DAT RODNEY MD Formatting of this note might be differe nt from the original. Pt called in asking about me dications. Reports that she didn't need one and needed another inhaler. She reports she is completely out of 2 of the medications. Please call Pt once medications are sent. Formatting of this note might be differe nt from the original. last seen pcp 05/11/22. Next appt is 08/13/22 with [facility] [employer] [employer]. Formatting of this note is different fro m the original. Patient has been identified by Yesname a nd date of : Requested Prescriptions Pending Prescriptions Disp Refills traZODone (DESYREL) 100 mg tablet 60 tab let 0 Sig: Take 2 tablets by mouth daily at be dtime. vbzfmqsdeqd-qhrqvwycb-xtzsuu er (TRELEGY ELLIPTA) 200-62.5-25 mcg inhalation powder 60 Each 11 Sig: Inhale 1 Puff as instructed once da ja. venlafaxine ER (EFFEXOR XR) 150 mg 24 hr capsule 90 capsule 0 Sig: Take 1 capsule by mouth once daily. RX INSTRUCTIONS: Patient aware RX will be sent to pharmac y. No need to notify patient. January Avalos Pss documented in this encounter 07-17-2022 Miscellaneous Formatting of this note migh t be different from the original. [facility] Notes Left message to advise appoi ntment with Dr Self has been moved up to August 4ht @ 10:15 in the [place] . Formatting of this note might be differe nt from the original. Patient called back in [facility] to message left for her. Informed her that she needs to complete testing first before she has appt with Dr. Self. She verbalized understanding. I informed her of when her testing is on 07/26/2022 in [facility] and rescheduled her appt with Dr. Self in [place] on 09/11/2022 since that was the soonest available she could go to. She's been added to the waitlist for this appt as well. Thank you. Maritza De Los Santos Formatting of this note might be differe nt from the original. Called patient to inform she needs testi ng prior to appt 07/17/22 She reports she is having significant pa in in her right leg. The soonest testing appt rosalee jiménez has available is 07/25/22. Patient is tentatively scheduled on that day. Appt needs to be rescheduled . Discussed with patient she could come for the visit on 07/17/22 however the testing is necessary to see if there is anything new going on since her last scan. Left patient a voicemail wit h this information, advised she could call the office for other appt options in [place]. documented in this encounter 07-09-2022 Note HNO ID: [id number] [facility] Author: ASHLEY Cage [place] Service: ? Author Type: Respiratory Therapist Type: Procedures Filed: 07/09/2022 3:31 PM Note Text: RESPIRATORY THERAPY OXIMETRY WITH AMBULATION Oximetry with Ambulation Test for This E ncounter O2 Device O2 Adapter NC O2 Flow SpO2% HR Activity Ft Walked (ft) Time (min) Avg Speed (MPH) R/A 97 83 Resting R/A 97 109 Walking, usual pace 460 3 1.7 4 General Information Pulse Oximetry Site Total Time Spent O2 Supply Carrier Walking Assistance/Device Forehead 15 -- 3 Wheel Walker NAME: ASHLEY Cage PATIENT NAME: Vince Koenig DATE: July 09, 2022 TIME: 3:31 PM Comment: patient stated she was dizzy wh en ambulating. Rolling walker used for stability. 07-09-2022 Note HNO ID: [id number] [facility] Author: ASHLEY Cage [place] Service: ? Author Type: Respiratory Therapist Type: Progress Notes Filed: 07/09/2022 3:31 PM Note Text: PULM FUNCTION SMARTBLOCK: Provider: Margaret Shrestha MD Assisting Tech: ASHLEY Cage Oximetry - Ambulation: 1 07-09-2022 Procedure note Associated Order(s): OXIMETRY WITH AMBULATION [facility] Formatting of this note is different fro m the original. RESPIRATORY THERAPY OXIMETRY WITH AMBULATION Oximetry with Ambulation Test for This E ncounter O2 Device O2 Adapter NC O2 F low SpO2% HR Activity Ft Walked (ft) Time (min) Avg Speed (MPH) R/A 97 83 Resting R/A 97 109 Walking, usual pace 460 3 1.7 4 General Information Pulse Oximetry Site Total Ti me Spent O2 Supply Carrier Walking Assistance/Device Forehead 15 -- 3 Wheel Walker NAME: ASHLEY Cage PATIENT NAME: Vince Koenig DATE: July 09, 2022 TIME: 3:31 PM Comment: patient stated she was dizzy when ambulating. Rolling walker used for stability. documented in this encounter 07-09-2022 History of Present [facility] illness Narrative PULM FUNCTION SMARTBLOCK: Provider: Margaret Shrestha MD Assisting Tech: ASHLEY Cage Oximetry - Ambulation: 1 documented in this encounter 07-06-2022 Miscellaneous Formatting of this note migh t be different from the original. [facility] Notes Order for oximetry documented in this encounter 06-14-2022 Miscellaneous Formatting of this note is d ifferent from the original. [facility] Notes Patient has been identified by name and date of : Yes Patient phones for refill(s): Pending Prescriptions Disp Refills TRAZODONE 100 MG TABLET 60 tablet 0 Sig: Take 2 tablets by mouth daily at be dtime. BECKY: No Date of last office visit in primary car e: 05/11/2022 3 month follow-up: 08/13/2022 Last 2 Encounter Wt Readings: Date: Wt: 06/06/2022 58 kg (127 lb 13.9 oz) 05/11/2022 58.1 kg (128 lb) Previous labs/tests for medication: Not applicable Please advise. Thank you. Saira schaefer LPN Patient has been identified by name and date of : Yes Pending Prescriptions Disp Refills TRAZODONE 100 MG TABLET 60 tablet 0 Sig: Take 2 tablets by mouth daily at be dtime. BECKY: No RX INSTRUCTIONS: Patient aware RX will be sent to pharmac y. No need to notify patient. Cailin Simons Pss documented in this encounter 06-06-2022 Note HNO ID: [id number] [facility] Author: Margaret Shrestha MD [place] Service: ? Author Type: Physician Type: Progress Notes Filed: 06/06/2022 10:48 AM Note Text: [facility] OFFICE VISIT CONSULT 06/06/2022 Patient Name: Vince Koenig PRIMARY CARE PHYSICIAN: Ulises lennon MD REASON FOR CONSULT: Asthma -COPD overlap syndrome/smoking REFERRING PHYSICIAN: Savanna Kenny, * My final recommendations will be communi cated to the requesting health care provider by way of the shared medic al record for internal providers or by letter via US mail for external pr oviders. CHIEF COMPLAINT: Asthma -COPD overlap sy ndrome/smoking HISTORY OF PRESENT ILLNESS: Vince pennington is a 67 year old female, Ht 162.1 cm (5' 3.82 ) BMI 22.07 kg/m2 with a PMH significant for current everyday smoking, history of asthma sinc e teenage, COPD, recently discharged from [facility] in [facility] where she was treated for COPD exacerbation and acute hypoxemic respira tory failure, coronary artery disease here for evaluation. The patient was discharged home on oxyge n supplementation to be used continuously at 2 L/min. The patient has wondering whether she ne eds to continue using oxygen and his asking for portable oxygen concentra tor. No new respiratory complaints today othe r than Chronic shortness of breath and cough an d sputum production She continues to smoke but cut down to l ess than a pack a day She understand that she needs to quit sm oking completely Symptoms are mild to moderate, persisten t, occur mainly on exertion and relieved by inhalers Recent hospital admissions: [facility] in [place] Medications: Symbicort, albuterol Most recent Radiology Most recent chest x-ray February 2021 promi nent bronchovascular marking Most recent PFT: Spirometry today with s evere airflow obstruction with borderline significant response to bronc hodilators. Moderate reduction in DLCO Oxygen supplementation: 2 L/min MMRC Dyspnea Scale: 0. Not troubled by breathlessness except on strenuous exercise 1. Short of breath when hurrying or walk ing up a slight hill 2. Walks slower than contemporaries on t he level because of breathlessness, or has to stop for breat h when walking at own pace 3. Stops for breath after about 100 m or after a few minutes on the level 4. Too breathless to leave the house, or breathless when dressing or undressing Environmental/ Occupational Exposure His tory: Pets: No birds Asbestos: No significant exposure Silica: No significant exposure [place]: No significant exposure Mold: No significant exposure Hot tub: No significant exposure Fumes: No significant exposure Metal dust: No significant exposure Beryllium: No significant exposure Dust: No significant exposure Medications: No relevant exposure for in terstitial lung diseases PAST MEDICAL HISTORY Diagnosis Date - Acute pancreatitis 2010 Anisha Cruz - Alcohol use disorder 01/18/2016 Dr. Angie Jones, [facility] - Anxiety 12/14/2015 - Bipolar affective disorder, currently active ([facility]) 01/18/2016 Dr. Angie Jones, [facility] - Chronic bronchitis ([facility]) 07/26/2016 - Closed skull fracture ([facility]) 1994 [facility] - Coronary artery disease - DDD (degenerative disc disease), cervi [place] - Endometriosis 2007 - Essential hypertension 12/14/2015 - GERD (gastroesophageal reflux disease) 03/13/2019 - History of colon polyps - History of gastric ulcer 12/14/2015 - HLD (hyperlipidemia) - Injury of left facial nerve 1994 - PAD (peripheral artery disease) ([facility]) 09/28/2019 - Recurrent major depression in partial remission ([facility]) 12/14/2015 - S/P drug eluting coronary stent placem ent 08/25/2021 LAD and Dg2 - Spinal stenosis PAST SURGICAL HISTORY Procedure Laterality Date - APPENDECTOMY 1979 - ARTHRP ACETBLR/PROX FEM PROSTC AGRFT/A LGRFT Right 03/25/2019 Hip replacement, total - Right - CHOLECYSTECTOMY 1979 Cholecystectomy - COLONOSCOPY 04/03/2017 diverticulosis- repeat 10 years - COLONOSCOPY FLX DX W/COLLJ SPEC WHEN P FRMD 2010 Colonoscopy - EGD 04/03/2017 Gastritis, duodenitis, GERD with esophag itis - PAST SURGICAL HISTORY OF 1994 cervical disc surgery x 3 - STENT PLACEMENT 08/25/2021 RODNEY LAD AND Dg2 - TEAEC W/WO PATCH GRAFT DEEP PROFUNDA F EMORAL Right 10/20/2019 patch angioplasty, Right iliac stent - TONSILLECTOMY PRIMARY/SECONDARY Tonsillectomy - TOTAL ABDOMINAL HYSTERECT W/WO RMVL TU BE OVARY 1979 Hysterectomy, MAURA - TOTAL FACIAL NERVE DECOMPRESSION AND/R EPAIR Left 1989 [facility] FAMILY HISTORY Problem Relation Age of Onset - Cancer Mother 50 lung cancer - Hypertension Mother - Cancer Father 50 lung cancer - Cancer Sister 61 lung cancer Social History Tobacco Use - Smoking status: Current Every Day Smok er Packs/day: 2.00 Years: 55.00 Pack years: 110.00 Types: Cigarettes (more content not included)... 06-06-2022 Note HNO ID: [id number] [facility] Author: Paco Miguel RRT [place] Service: ? Author Type: Registered Resp Therapist Type: Progress Notes Filed: 06/06/2022 9:48 AM Note Text: PULM FUNCTION SMARTBLOCK: Provider: Margaret Shrestha MD Assisting Tech: Paco Miguel RRT Spirometry w/BD: 1 DLCO: 1 06-06-2022 History of Present [facility] illness Narrative Images from the original note were not i ncluded. [facility] OFFICE VISIT CONSULT 06/06/2022 Patient Name: Vince Koenig PRIMARY CARE PHYSICIAN: Ulises lennon MD REASON FOR CONSULT: Asthma -COPD overlap syndrome/smoking REFERRING PHYSICIAN: Savanna Kenny, * My final recommendations vera l be communicated to the requesting health care provider by way of the shared medical record for internal providers or by letter via US mail for external providers. CHIEF COMPLAINT: Asthma -COPD overlap sy ndrome/smoking HISTORY OF PRESENT ILLNESS: Vince Koenig is a 67 year old female, Ht 162.1 cm (5' 3.82 ) BMI 22.07 kg/m2 with a PMH significant for current everyday smoking, history of asthma since teenage, COPD, recently discharged from [facility] in [place] where she was treated for COPD exacerbation and acute hypoxemic respiratory failure, coronary artery disease here for evaluation. The patient was discharged h ome on oxygen supplementation to be used continuously at 2 L/min. The patient has wondering wh ether she needs to continue using oxygen and his asking for portable oxygen concentrator. No new respiratory complaints today othe r than Chronic shortness of breath and cough an d sputum production She continues to smoke but cut down to l ess than a pack a day She understand that she needs to quit sm oking completely Symptoms are mild to moderat e, persistent, occur mainly on exertion and relieved by inhalers Recent hospital admissions: [facility] Medications: Symbicort, albuterol Most recent Radiology Most recent chest x-ray February 2021 promi nent bronchovascular marking Most recent PFT: Spirometry today with severe airflow obstruction with borderline significant response to bronchodilators. Moderate reduction in DLCO Oxygen supplementation: 2 L/min MMRC Dyspnea Scale: 0. Not troubled by breathlessness except on strenuous exercise 1. Short of breath when hurrying or walk ing up a slight hill 2. Walks slower than contemp oraries on the level because of breathlessness, or has to stop for breath when walking at own pace 3. Stops for breath after about 100 m or after a few minutes on the level 4. Too breathless to leave t he house, or breathless when dressing or undressing Environmental/ Occupational Exposure His tory: Pets: No birds Asbestos: No significant exposure Silica: No significant exposure [place]: No significant exposure Mold: No significant exposure Hot tub: No significant exposure Fumes: No significant exposure Metal dust: No significant exposure Beryllium: No significant exposure Dust: No significant exposure Medications: No relevant exposure for in terstitial lung diseases PAST MEDICAL HISTORY Diagnosis Date Acute pancreatitis 2010 [facility] Alcohol use disorder 01/18/2016 [facility] Anxiety 12/14/2015 Bipolar affective disorder, currently a ctive ([facility]) 01/18/2016 [facility]ie [facility] Chronic bronchitis ([facility]) 07/26/2016 Closed skull fracture ([facility]) 1994 [facility], [facility] Coronary artery disease DDD (degenerative disc disease), cervic al Endometriosis 2007 Essential hypertension 12/14/2015 GERD (gastroesophageal reflux disease) 03/13/2019 History of colon polyps History of gastric ulcer 12/14/2015 HLD (hyperlipidemia) Injury of left facial nerve 1994 PAD (peripheral artery disease) ([facility]) 1 11/28/2018 Recurrent major depression in partial r emission ([facility]) 12/14/2015 S/P drug eluting coronary stent placeme nt 08/25/2021 LAD and Dg2 Spinal stenosis PAST SURGICAL HISTORY Procedure Laterality Date APPENDECTOMY 1979 ARTHRP ACETBLR/PROX FEM PROSTC AGRFT/AL GRFT Right 03/25/2019 Hip replacement, total - Right CHOLECYSTECTOMY 1979 Cholecystectomy COLONOSCOPY 04/03/2017 diverticulosis- repeat 10 years COLONOSCOPY FLX DX W/COLLJ SPEC WHEN PF RMD 2010 Colonoscopy EGD 04/03/2017 Gastritis, duodenitis, GERD with esophag itis PAST SURGICAL HISTORY OF 1994 cervical disc surgery x 3 STENT PLACEMENT 08/25/2021 RODNEY LAD & Dg2 TEAEC W/WO PATCH GRAFT DEEP PROFUNDA FE MORAL Right 10/20/2019 patch angioplasty, Right iliac stent TONSILLECTOMY PRIMARY/SECONDARY <AGE 12 1960 Tonsillectomy TOTAL ABDOMINAL HYSTERECT W/WO RMVL TUB E OVARY 1979 Hysterectomy, MAURA TOTAL FACIAL NERVE DECOMPRESSION &/REPA IR Left 1989 [facility] FAMILY HISTORY Problem Relation Age of Onset Cancer Mother 50 lung cancer Hypertension Mother Cancer Father 50 lung cancer Cancer Sister 61 lung cancer Social History Tobacco Use Smoking status: Current Every Day Smoke r Packs/day: 2.00 Years: 55.00 Pack years: 110.00 Types: Cigarettes Start date: 11/11/1966 Smokeless tobacco: Never Used Tobacco comment: down to 1ppd 10/06/19 Vaping Use Vaping Use: Never used Substance Use Topics Alcohol use: Yes Drug use: No ALLERGIES ALLERGIES No Known Allergies CURRENT OUTPATIENT MEDICATIONS albuterol HFA (VENTOLIN HFA) 90 mcg/actuation inhaler Inhale 2 Puffs as instructed every 6 hours as needed for wheezing/shortness of breath. amLODIPine (NORVASC) 10 mg tablet TAKE 1 TABLET BY MOUTH EVERY DAY omeprazole (PRILOSEC) 40 mg capsule Take 1 capsule by mouth once daily. traZODone (DESYREL) 100 mg tablet Take 2 tablets by mouth daily at bedtime. lisinopril (ZESTRIL, PRINIVIL) 40 mg tab let Take 1 tablet by mouth once daily. venlafaxine ER (EFFEXOR XR) 150 mg 24 hr capsule Take 1 capsule by mouth once daily. isosorbide mononitrate ER (I MDUR) 30 mg 24 hr tablet TAKE 1 TABLET BY MOUTH EVERY DAY carvedilol (COREG) 6.25 mg tablet TAKE 1 TABLET BY MOUTH TWICE A DAY atorvastatin (LIPITOR) 80 mg tablet TAKE 1 TABLET BY MOUTH EVERY DAY aspirin 81 mg chewable tablet Take 1 tab let by mouth once daily. clopidogrel (PLAVIX) 75 mg tablet Take 1 tablet by mouth once daily. kjoabpllrtv-gikkppuko-eltvve er (TRELEGY ELLIPTA) 200-62.5-25 mcg inhalation powder Inhale 1 Puff as instructed once daily. clopidogrel (PLAVIX) 75 mg tablet Take 1 tablet by mouth once daily. REVIEW OF SYSTEMS Review of Systems Constitutional: Negative for chills, fev er and weight loss. Respiratory: Positive for co ugh, sputum production, shortness of breath and wheezing. Negative for hemoptysis. Cardiovascular: Negative for chest pain and leg swelling. The remainder of review of systems was n egative. PHYSICAL EXAM BP 173/84 Pulse 77 Ht 5' 3.819 (1.62m) Wt 127 lb 13.9 oz (58.0kg) SpO2 96% BMI 22.07 kg/(m^2). General appearance: Well larissa earing, alert, in no acute distress, well-hydrated, well nourished. Eyes: PERRLA Neck: no palpable masses Lungs: Positive findings: wheezing Heart: RRR without murmur, gallop, or rubs. No ectopy , normal peripheral pulses, no peripheral edema Abdomen: Abdomen soft, non-t [place]. Bowel sounds normal. No masses, organomegaly Extremities: Normal, Warm, No cyanosis, no clubbing, No edema and Nontender Neuro: no focal weakness Psychiatry: Alert, Oriented X 3 DATA Diagnostic tests reviewed fo r today's visit, including films and specimens, personally reviewed by me: Most recent labs and imaging results. Recent Results (from the past 8760 hour( s)) ECG COMPLETE Collection Time: 10/19/21 2:17 PM Result Value Ventricular Rate 76 Atrial Rate 76 P-R Interval 156 QRS Duration 88 QT Interval 400 QTC Calculation (Bazett) 450 Calculated P Camanche 82 Calculated R Camanche 65 Calculated T Camanche 69 Impression NORMAL SINUS RHYTHM NORMAL ECG Confirmed by AZALEA ROTH M.D. ([id number] ) on 10/23/2021 11:14:32 AM Recent Results (from the past 85924 hour (s)) ECHO Collection Time: 05/21/22 3:26 PM Impression CONCLUSIONS: - Technically difficult exam due to body habitus and COPD/SOB. - Exam indication: Shortness of Breath - The left ventricle is normal in size. Left ventricular systolic function is normal. EF = 59 5% (2D 4-ch.) Grade I le ft ventricular diastolic dysfunction. - The right ventricle is nor mal in size. Right ventricular systolic function is normal. - There are no significant valvular abno rmalities. - There are no significant valvular abno rmalities. - The patient has not had a prior CC ech ocardiographic exam for comparison. * * * Final * * * ASSESSMENT/PLAN 1. Asthma-COPD overlap syndr ome (HCC) - ICD9: 493.20, ICD10: J44.9 (primary diagnosis) Stopping Symbicort Start Trelegy Albuterol as needed Smoking cessation Has an appointment with lung cancer agus agustin We will discuss referral to pulmonary re hab next visit 2. Smoking - ICD9: 305.1, ICD10: F17.200 Discussed importance of smoking cessatio n - ALBUTEROL SULFATE HFA 90 MCG/ACTUATION AEROSOL INHALER Margaret Shrestha MD Immunizations: Up to date SMOKING CESSATION COUNSELING Smoking cessation methods in cluding Nicotine Replacement Therapies, Bupropion, Varenicline and Behavior Modification were discussed with the patient and assistance offered. The medical condition/s adve rsely affected by tobacco use include:COPD, Emphysema and Lung Cancer. The patient is currently not ready to qu it. I personally spent 3 minutes in counseli ng. The time spent in smoking ce ssation counseling is exclusive of any other counseling during this visit. Patient instructed to contact me for ct scan and lab results. I discussed the plan in deta il with the patient and the patient verbalizes understanding and is in agreement. FOLLOW UP 6 months Verbal and/or written health teaching given to patient with > 40 minutes spent face to face with more than half of this for disease counseling. Margaret Shrestha MD Staff, Respiratory [place] [facility] CC: MD Zoya Jameson Maria Sheyne, * documented in this encounter 06-06-2022 History of Present [facility] illness Narrative PULM FUNCTION SMARTBLOCK: Provider: Margaret Shrestha MD Assisting Tech: Paco Miguel RRT Spirometry w/BD: 1 DLCO: 1 documented in this encounter 06-04-2022 Miscellaneous Formatting of this note migh t be different from the original. [facility] Notes New order printed and faxed. Natalie Blackman Ma See phone note from 05/31, this was faxed and then re faxed on 06/04 Oly Smith APRN.LINDA [facility] received several orders for the Aerochamber spacer, electronically signed by Disability Advocate. States she cannot accept this. Needs an actual prescription with name, address an d signature of provider. Ple ase send actual prescription. Fax number [phone]. documented in this encounter 06-01-2022 Miscellaneous Formatting of this note migh t be different from the original. [facility] Notes Order faxed - patient notified, verbaliz ed understanding. Natalie Blackman Ma She has an appointment with pulmonary medicine on 06/06, she can discuss portable oxygen tank orders at that time. Please fax prescription for spacer Oly Smith APRN.LINDA Patient calls and is asking about a spacer for her inhalers. Patient asking if prescription can be sent for inhaler spacer? Pharmacy is [facility]. See Message below in regards to portable oxygen tank. Please review and advise, Christina Pete RN Patient calls and is asking if provider can write orders for patient to have a smaller portable oxygen tank so it is easier for her to go places. She gets current supplies from [facility]. Please review and advise, Christina Pete RN documented in this encounter 05-30-2022 Miscellaneous Addended by: SAVANNA KENNY on: 05/30/2022 09:06 AM [facility] Notes Modules accepted: Orders documented in this encounter 05-29-2022 Miscellaneous Formatting of this note is d ifferent from the original. [facility] Notes Patient's request for medication is as f ollows: Pending Prescriptions Disp Refills AMLODIPINE 10 MG TABLET 90 tablet 3 Sig: TAKE 1 TABLET BY MOUTH EVERY DAY BECKY: Yes Last seen 12/04/2021 in [place]. Follow up scheduled for 11/19/2022. Prescription(s) as above. Please process accordingly. Tracy Alan LPN documented in this encounter 05-25-2022 Miscellaneous Formatting of this note migh t be different from the original. [facility] Notes Detailed message left for patient. The following approved medic ation requests have been transmitted electronically. Signed Prescriptions Disp Refills budesonide-formoterol (SYMBICORT) 160-4. 5 mcg/actuation inhaler 1 Each 0 Sig: Inhale 2 Puffs as instructed twice daily. BECKY: No Authorizing Provider: OLY SMITH APRN.LINDA Patient has been identified by name and date of : Yes Pending Prescriptions Disp Refills SYMBICORT 160 MCG-4.5 MCG/ACTUATION HFA AEROSOL INHALER Sig: Inhale 2 Puffs as instructed twice daily. BECKY: Yes RX INSTRUCTIONS: Patient requesting a call wh en RX is approved and sent to the pharmacy. Please call patient at: [phone]. Telma Greco Pss documented in this encounter 05-24-2022 Miscellaneous Formatting of this note migh t be different from the original. [facility] Notes Patient returned call and wa s notified. Attempted to call pt. No ans wer. Left message for pt. to return call. Please advise of below and close encounter when pt calls back. Thank you. Shanelle Toribio RN ----- Message from Tracy Ramires APRN.CNP sent at 05/22/2022 7:41 AM EDT ----- Please call patient and noti fy her echocardiogram reveals stable LV function and no significant valve disease. Thank you! do cumented in this encounter 05-22-2022 Miscellaneous Formatting of this note migh t be different from the original. [facility] Notes Please call patient and noti fy her echocardiogram reveals stable LV function and no significant valve disease. Thank you! documented in this encounter 05-11-2022 Note HNO ID: [id number] [facility] Author: Ulises Hermosillo MD [place] Service: ? Author Type: Physician Type: Progress Notes Filed: 05/11/2022 3:49 PM Note Text: This note was created using WeDeliverriter. Subjective Patient presents with: Hospital Follow Up Vince Koenig is a 66 year old femal e. She was admitted 05/02-05/05? For COPD exacerbation. Only ER report wa s available. She finished Cefdinir and prednisone. She claimed she was discharged on home oxygen, but she had no oxygen today. She was bet ter but not back to baseline. She continued to smoke. She was concerned about recurring blocka ge to her right leg, due to recurrent ache and tingling. Review of Systems Constitutional: Negative. Respiratory: Positive for cough, shortne ss of breath and wheezing. Cardiovascular: Negative for chest pain, palpitations and leg swelling. Gastrointestinal: Negative. Genitourinary: Negative. Neurological: Negative for weakness. Right leg ache, tingling. 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 ([facility]) Bipolar Affective Disorder, Currently Ac tive ([facility]) History of Alcohol Abuse Chronic bronchitis ([facility]) Spinal Stenosis, Lumbar Region Without N eurogenic Claudication Radiculopathy, Lumbar Region Smoker Gerd (Gastroesophageal Reflux Disease) Seasonal Allergies Pad (Peripheral Artery Disease) ([facility]) Anxiety and Depression Prediabetes Chest Pain Other Chest Pain Stenosis of Carotid Artery Mixed Hyperlipidemia Abnormal Stress Test Dyspnea On Exertion Coronary Artery Disease Involving [place] Coronary Artery of [place] Heart Without Angina Pectoris Social History Tobacco Use - Smoking status: Current Every Day [facility] Packs/day: 2.00 Years: 54.00 Pack years: 108.00 Types: Cigarettes - Smokeless tobacco: Never Used - Tobacco comment: down to 1ppd 10/06/19 Vaping Use - Vaping Use: Never used Substance Use Topics - Alcohol use: Yes - Drug use: No Current Outpatient Medications Medication Sig - SYMBICORT 160-4.5 mcg/actuation inhale r Inhale 2 Puffs as instructed twice daily. - omeprazole (PRILOSEC) 40 mg capsule Ta ke 1 capsule by mouth once daily. - traZODone (DESYREL) 100 mg tablet Take 2 tablets by mouth daily at bedtime. - lisinopril (ZESTRIL, PRINIVIL) 40 mg t ablet Take 1 tablet by mouth once daily. - albuterol HFA (VENTOLIN HFA) 90 mcg/ac tuation inhaler Inhale 2 Puffs as instructed every 6 hours as needed for w heezing/shortness of breath. - venlafaxine ER (EFFEXOR XR) 150 mg 24 hr capsule Take 1 capsule by mouth once daily. - isosorbide mononitrate ER (IMDUR) 30 m g 24 hr tablet TAKE 1 TABLET BY MOUTH EVERY DAY - carvedilol (COREG) 6.25 mg tablet TAKE 1 TABLET BY MOUTH TWICE A DAY - atorvastatin (LIPITOR) 80 mg tablet TA KE 1 TABLET BY MOUTH EVERY DAY - aspirin 81 mg chewable tablet Take 1 t ablet by mouth once daily. - amLODIPine (NORVASC) 10 mg tablet TAKE 1 TABLET BY MOUTH EVERY DAY - clopidogrel (PLAVIX) 75 mg tablet Take 1 tablet by mouth once daily. - clopidogrel (PLAVIX) 75 mg tablet Take 1 tablet by mouth once daily. Current Facility-Administered Medication s Medication Dose Route Frequency - perflutren lipid microspheres 1.3 mL i n NaCl (PF) 0.9% 10 mL injection (DEFINITY) INTRAVENOUS DIRECTED PRN - sodium chloride 0.9 % (flush) 10 mL (B D POSIFLUSH) 10 mL INTRAVENOUS DIRECTED PRN Objective BP 118/78 Pulse 99 Resp 24 Wt 58.1 kg (128 lb) LMP (LMP Unknown) SpO2 95% BMI 21.30 kg/m? Physical Exam Constitutional: General: She is not in acute distress. Appearance: She is not diaphoretic. Cardiovascular: Rate and Rhythm: Normal rate and regular rhythm. Pulses: Decreased pulses. Heart sounds: No murmur heard. No gallop. Pulmonary: Breath sounds: Normal breath sounds. No wheezing or rales. Abdominal: Palpations: Abdomen is soft. Tenderness: There is no abdominal tender ness. Musculoskeletal: General: No tenderness. Right lower leg: No edema. Left lower leg: No edema. Neurological: Mental Status: She is alert. Sensory: No sensory deficit. Motor: No weakness. Gait: Gait normal. Assessment and Plan ASSESSMENT/PLAN: 1. Chronic bronchitis, unspecified chron ic bronchitis type (HCC) - ICD9: 491.9, ICD10: J42 (primary diagnosis) Hypoxemia? Home Oxygen? Keep pulmonary f ollow up as scheduled. 2. Recurrent major depression in partial remission (HCC) - ICD9: 296.35, ICD10: F33.41 Stable. Continue medication. Call for re fill. 3. Gastroesophageal reflux disease, unsp ecified whether esophagitis present - ICD9: 530.81, ICD10: K21.9 Controlled. - OMEPRAZOLE 40 MG CAPSULE,DELAYED RELEA SE 4. Need for vaccination - ICD9: V05.9, I CD10: Z23 - PNEUMOCOCCAL VACCINE (PREVNAR 20) 5. Bipolar affective disorder, current e pisode mixed, current episode severity unspecified ([facility]) - ICD9: 296.6 0, ICD10: F31.60 Stable. 6. PAD (peripheral artery di sease) ([facility]) - ICD9: 443 (more content not included)... 05-11-2022 Instructions Ulises Hermosillo MD - 11/2021 2:14 PM EDT [facility] FASTING BLOOD WORK IN 3 [facility]. documented in this encounter 05-11-2022 History of Present [facility] illness Narrative This note was created using WeDeliverriter. Subjective Patient presents with: Hospital Follow Up Vince Koenig is a 66 ye ar old female. She was admitted 05/02-05/05? For COPD exacerbation. Only ER report was available. She finished Cefdinir and prednisone. She claimed she was discharged on home o xygen, but she had no oxygen today. She was better but not back to baseline. She continued to smoke. She was concerned about recu rring blockage to her right leg, due to recurrent ache and tingling. Review of Systems Constitutional: Negative. Respiratory: Positive for cough, shortne ss of breath and wheezing. Cardiovascular: Negative for chest pain, palpitations and leg swelling. Gastrointestinal: Negative. Genitourinary: Negative. Neurological: Negative for weakness. Right leg ache, tingling. 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 ([facility]) Bipolar Affective Disorder, Currently Ac tive ([facility]) History of Alcohol Abuse Chronic bronchitis ([facility]) Spinal Stenosis, Lumbar Region Without N eurogenic Claudication Radiculopathy, Lumbar Region Smoker Gerd (Gastroesophageal Reflux Disease) Seasonal Allergies Pad (Peripheral Artery Disease) ([facility]) Anxiety and Depression Prediabetes Chest Pain Other Chest Pain Stenosis of Carotid Artery Mixed Hyperlipidemia Abnormal Stress Test Dyspnea On Exertion Coronary Artery Disease Invo lving [place] Coronary Artery of [place] Heart Without Angina Pectoris Social History Tobacco Use Smoking status: Current Every Day Smoke r Packs/day: 2.00 Years: 54.00 Pack years: 108.00 Types: Cigarettes Smokeless tobacco: Never Used Tobacco comment: down to 1ppd 10/06/19 Vaping Use Vaping Use: Never used Substance Use Topics Alcohol use: Yes Drug use: No Current Outpatient Medications Medication Sig SYMBICORT 160-4.5 mcg/actua tion inhaler Inhale 2 Puffs as instructed twice daily. omeprazole (PRILOSEC) 40 mg capsule Liz e 1 capsule by mouth once daily. traZODone (DESYREL) 100 mg tablet Take 2 tablets by mouth daily at bedtime. lisinopril (ZESTRIL, PRINIV IL) 40 mg tablet Take 1 tablet by mouth once daily. albuterol HFA (VENTOLIN HFA ) 90 mcg/actuation inhaler Inhale 2 Puffs as instructed every 6 hours as needed for wheezing/shortness of breath. venlafaxine ER (EFFEXOR XR) 150 mg 24 hr capsule Take 1 capsule by mouth once daily. isosorbide mononitrate ER ( IMDUR) 30 mg 24 hr tablet TAKE 1 TABLET BY MOUTH EVERY DAY carvedilol (COREG) 6.25 mg tablet TAKE 1 TABLET BY MOUTH TWICE A DAY atorvastatin (LIPITOR) 80 mg tablet LIZ E 1 TABLET BY MOUTH EVERY DAY aspirin 81 mg chewable tablet Take 1 ta blet by mouth once daily. amLODIPine (NORVASC) 10 mg tablet TAKE 1 TABLET BY MOUTH EVERY DAY clopidogrel (PLAVIX) 75 mg tablet Take 1 tablet by mouth once daily. clopidogrel (PLAVIX) 75 mg tablet Take 1 tablet by mouth once daily. Current Facility-Administered Medication s Medication Dose Route Frequency perflutren lipid microspher es 1.3 mL in NaCl (PF) 0.9% 10 mL injection (DEFINITY) INTRAVENOUS DIRECTED PRN sodium chloride 0.9 % (flus h) 10 mL (BD POSIFLUSH) 10 mL INTRAVENOUS DIRECTED PRN Objective BP 118/78 Pulse 99 Resp 24 Wt 58.1 kg (128 lb) LMP (LMP Unknown) SpO2 95% BMI 21.30 kg/m Physical Exam Constitutional: General: She is not in acute distress. Appearance: She is not diaphoretic. Cardiovascular: Rate and Rhythm: Normal rate and regular rhythm. Pulses: Decreased pulses. Heart sounds: No murmur heard. No gallop. Pulmonary: Breath sounds: Normal breath sounds. No wheezing or rales. Abdominal: Palpations: Abdomen is soft. Tenderness: There is no abdominal tender ness. Musculoskeletal: General: No tenderness. Right lower leg: No edema. Left lower leg: No edema. Neurological: Mental Status: She is alert. Sensory: No sensory deficit. Motor: No weakness. Gait: Gait normal. Assessment and Plan ASSESSMENT/PLAN: 1. Chronic bronchitis, unspe cified chronic bronchitis type ([facility]) - ICD9: 491.9, ICD10: J42 (primary diagnosis) Hypoxemia? Home Oxygen? Keep pulmonary f ollow up as scheduled. 2. Recurrent major depressio n in partial remission ([facility]) - ICD9: 296.35, ICD10: F33.41 Stable. Continue medication. Call for re fill. 3. Gastroesophageal reflux d isease, unspecified whether esophagitis present - ICD9: 530.81, ICD10: K21.9 Controlled. - OMEPRAZOLE 40 MG CAPSULE,DELAYED RELEA SE 4. Need for vaccination - ICD9: V05.9, I CD10: Z23 - PNEUMOCOCCAL VACCINE (PREVNAR 20) 5. Bipolar affective disorde r, current episode mixed, current episode severity unspecified ([facility]) - ICD9: 296.60, ICD10: F31.60 Stable. 6. PAD (peripheral artery disease) ([facility]) - ICD9: 443.9, ICD10: I73.9 - PVR LEG SHERIN [facility] - CONSULT TO VASCULAR SURGERY - CBC - COMP METABOLIC PANEL - LIPID PANEL BASIC Ulises Hermosillo MD documented in this encounter 05-07-2022 Miscellaneous Formatting of this note is d ifferent from the original. [facility] Notes MURTAZA: 10/19/2021 Last refill: 11/21/2021 QTY: 60 Refills: 5 Patient's request for medication is as f ollows: Pending Prescriptions Disp Refills TRAZODONE 100 MG TABLET 60 tablet 5 Sig: Take 2 tablets by mouth daily at be dtime. BECKY: No Please approve the above prescription(s) to electronically send to pharmacy. Natalie Blackman Ma Patient has been identified by name and date of : Yes Pending Prescriptions Disp Refills TRAZODONE 100 MG TABLET 60 tablet 5 Sig: Take 2 tablets by mouth daily at be dtime. BECKY: No RX INSTRUCTIONS: Per Patient she is out of medication. Patient aware RX will be sent to pharmac y. No need to notify patient. Luci Scott Pss documented in this encounter 05-05-2022 Hospital Discharge Patient Education 05/05/2022 11:07:44 Chronic Obstructive Pulmonary Disease Chronic Obstructive Pulmonary Disease [facility] instructions Chronic obstructive pulmonar y disease (COPD) is a long-term (chronic) condition that affects the lungs. COPD is a general term that can be used to describe many different lung problems that cause lung s welling (inflammation) and l imit airflow, including chronic bronchitis and emphysema. If you have COPD, your lung function will probably never return to normal. In most cases, it gets worse over time. H owever, there are steps you can take to slow the progression of the disease and improve your quality of life. What are the causes? This condition may be caused by: Smoking. This is the most common cause. Certain genes passed down through famil ies. What increases the risk? The following factors may make you more likely to develop this condition: Secondhand smoke from cigarettes, pipes , or cigars. Exposure to chemicals and o ther irritants such as fumes and dust in the work environment. Chronic lung conditions or infections. What are the signs or symptoms? Symptoms of this condition include: Shortness of breath, especially during physical activity. Chronic cough with a large amount of thick mucus. Sometimes the cough may not have any mucus (dry cough). Wheezing. Rapid breaths. [place] or bluish discoloratio n (cyanosis) of the skin, especially in your fingers, toes, or lips. Feeling tired (fatigue). Weight loss. Chest tightness. Frequent infections. Episodes when breathing symptoms become much worse (exacerbations). Swelling in the ankles, fee t, or legs. This may occur in later stages of the disease. How is this diagnosed? This condition is diagnosed based on: Your medical history. A physical exam. You may also have tests, including: Lung (pulmonary) function t ests. This may include a spirometry test, which measures your ability to exhale properly. Chest X-ray. CT scan. Blood tests. How is this treated? This condition may be treated with: Medicines. These may includ e inhaled rescue medicines to treat acute exacerbations as well as long-term, or maintenance, medicines to prevent flare- ups of COPD. ?Bronchodilators help treat COPD by dilating the airways to allow increased airflow and make your breathing more comfortable. ?Steroids can reduce airway inflammation and help prevent exacerbations. Smoking cessation. If you s moke, your health care provider may ask you to quit, and may also recommend therapy or replacement products to help you quit. Pulmonary rehabilitation. T his may involve working with a team of health care providers and specialists, such as respiratory, occupational, and physical therapists. Exercise and physical activ ity. These are beneficial for nearly all people with COPD. Nutrition therapy to gain weight, if yo u are underweight. Oxygen. Supplemental oxygen therapy is only helpful if you have a low oxygen level in your blood (hypoxemia). Lung surgery or transplant. Palliative care. This is to help people with COPD feel comfortable when treatment is no longer working. Follow these instructions at home: Medicines Take koms-ivm-zraertc and p rescription medicines (inhaled or pills) only as told by your health care provider. Talk to your health care pr ovider before taking any cough or allergy medicines. You may need to avoid certain medicines that dry out your airways. Lifestyle If you are a smoker, the mo st important thing that you can do is to stop smoking. Do not use any products that contain nicotine or tobacco, such as cigarettes and e-cigarettes. If you need help quittin g, ask your health care prov ider. Continuing to smoke will cause the disease to progress faster. Avoid exposure to things th at irritate your lungs, such as smoke, chemicals, and fumes. Stay active, but balance ac tivity with periods of rest. Exercise and physical activity will help you maintain your ability to do things you want to do. Learn and use relaxation te chniques to manage stress and to control your breathing. Get the right amount of sle ep and get quality sleep. Most adults need 7 or more hours per night. Eat healthy foods. Eating s maller, more frequent meals and resting before meals may help you maintain your strength. Controlled breathing Learn and use controlled eddie athing techniques as directed by your health care provider. Controlled breathing techniques include: Pursed lip breathing. Start by breathing in (inhaling) through your nose for 1 second. Then, purse your lips as if you were going to whistle and breathe out (exhale) through the pursed lips for [address] seconds[address] breathing. [address] art by putting one hand on your abdomen just above your waist. Inhale slowly through your nose. The hand on your abdomen should move out. Then purse your lips and exhale slow ly. You should be able to fe el the hand on your abdomen moving in as you exhale. Controlled coughing Learn and use controlled cou ghing to clear mucus from your lungs. Controlled coughing is a series of short, progressive coughs. The steps of controlled coughing are: 1.Lean your head slightly forward. 2.Breathe in deeply using diaphragmatic breathing. 3.Try to hold your breath for 3 seconds. 4.Keep your mouth slightly open while co ughing twice. 5.Spit any mucus out into a tissue. 6.Rest and repeat the steps once or twic e as needed. General instructions Make sure you receive all t he vaccines that your health care provider recommends, especially the pneumococcal and influenza vaccines. Preventing infection and hospitalization is very important when you have COPD. Use oxygen therapy and pulm onary rehabilitation if directed to by your health care provider. If you require home oxygen therapy, ask your health care provider whether you should purchase a pulse oximeter to measure your oxygen level at home. Work with your health care provider to develop a COPD action plan. This will help you know what steps to take if your condition gets worse. Keep other chronic health c onditions under control as told by your health care provider. Avoid extreme temperature and humidity changes. Avoid contact with people w ho have an illness that spreads from person to person (is contagious), such as viral infections or pneumonia. Keep all follow-up visits a s told by your health care provider. This is important. Contact a health care provider if: You are coughing up more mucus than usu al. There is a change in the color or thick ness of your mucus. Your breathing is more labored than usu al. Your breathing is faster than usual. You have difficulty sleeping. You need to use your rescue medicines o r inhalers more often than expected. You have trouble doing rout ine activities such as getting dressed or walking around the house. Get help right away if: You have shortness of breath while you are resting. You have shortness of breath that preve nts you from: ?Being able to talk. ?Performing your usual physical activiti es. You have chest pain lasting longer than 5 minutes. Your skin color is more blue (cyanotic) than usual. You measure low oxygen satu rations for longer than 5 minutes with a pulse oximeter. You have a fever. You feel too tired to breathe normally. Summary Chronic obstructive pulmona ry disease (COPD) is a long-term (chronic) condition that affects the lungs. Your lung function will pro bably never return to normal. In most cases, it gets worse over time. However, there are steps you can take to slow the progression of the disease and improve your quality of life. Treatment for COPD may incl ude taking medicines, quitting smoking, pulmonary rehabilitation, and changes to diet and exercise. As the disease progresses, you may need oxygen therapy, a lung transplant, or palliative care. To help manage your conditi on, do not smoke, avoid exposure to things that irritate your lungs, stay up to date on all vaccines, and follow your health care provider's instructions for taking medicines. This information is not inte nded to replace advice given to you by your health care provider. Make sure you discuss any questions you have with your health care provider. Document Released: 6 Document Revised: 10/10/2018 Document Reviewed: 12/02/2017 [employer] Patient Education 2020 [employer]. Follow Up Care 05/02/2022 09:30:28 [facility] Address: When: Unknown Comments[facility] your home oxygen and equipment. Call them when you arrive home and they will deliver your oxygen concentrator to you. Their number is [phone]. With:ULISES HERMOSILLO MD Address: [address] [place] [address]- When:05/11/2022 13:40:00 Comments:The appointment on 05/07 has been moved to 05/11 @1:40 P.M to be with Dr. Hermosillo 05-02-2022 Evaluation + Plan note Extracted from: Title:History and Physical Author:LAVERNE SHELLEY MD te:05/02/22 Acute hypoxic respiratory failure COPD exacerbation Hypertension Coronary artery disease History of alcohol abuse Patient presents with increased dyspnea on exertion and productive cough with increased frequency and production in the past 3 days. Patient was given 125 mg IV Solu-Medrol, 2 g magnesium, and DuoNeb x3 . BNP mildly elevated to 344, troponin n egative x1. COVID-19 negative. Patient received IV Solu-Medrol and DuoNeb in the outside ED. Continue patient on IV Solu-Medrol and scheduled DuoNeb and budesonide. Wean oxygen as tolerated. Regarding patient's history of coronary artery disease, patient follows with cardiology as an outpatient. She indicates that she last had stent placement 5 months ago. Patient indicates compliance with Plavix though unable to confirm with pha rmacy. Continue patient on confirmed cardiac medications in addition to Plavix. [facility] 06-22-2022 SARS-CoV-2 (COVID-19) RNA IVANA+probe Ql (Nph) Negative (05/02/22 4:25 AM)AO Auto Urine [id number] NoteHNO ID: [id number] Author: Tracy Ramires APRN.FISH HATCHERY WORKER Service: ? Author Type: Nurse Practitioner Type: Progress Notes Filed: 05/03/2022 2:36 PM Note Text: Chief Complaint Patient presents with: 6 month check increased SOB History of Present Illness: Vince Koenig is a 66 year old female who presents for routine follow up. CAD (s/p RODNEY to LAD and D1 08/25/2021), HLD,?HTN, PAD, COPD, current smoker. She was last seen by myself?in office on 12/04/2021 in a virtual visit. She states she has felt as if she has become more short of breath over the past 6-months. She feels like this occurs with exertion and at rest. She does feel like it is pulmonary in nature. She has PFTs and appointment with pulmonary scheduled in May. She does feel very limited by her shortness of breath and is not able to be very active. She denies other cardiac complaints such as chest pain, chest pain with activity, palpitations, dizziness, syncope, orthopnea, LE swelling. We plan to start with checking an echocardiogram for further evaluation of SOB. We reviewed cardiac risk factors and modifications. Unfortunately, she continues to smoke. She reports patient taking medications as prescribed and requests for refills were sent to her pharmacy. PAST MEDICAL HISTORY Diagnosis Date - Acute pancreatitis 2010 Anisha Cruz - Alcohol use disorder 01/18/2016 Dr. Angie Jones, [facility] - Anxiety 12/14/2015 - Bipolar affective disorder, currently active ([facility]) 01/18/2016 Dr. Angie Jones, [facility] - Chronic bronchitis ([facility]) 07/26/2016 - Closed skull fracture ([facility]) 1994 [facility], [facility] - Coronary artery disease - DDD (degenerative disc disease), cervical - Endometriosis 2007 - Essential hypertension 12/14/2015 - GERD (gastroesophageal reflux disease) 03/13/2019 - History of colon polyps - History of gastric ulcer 12/14/2015 - HLD (hyperlipidemia) - Injury of left facial nerve 1994 - PAD (peripheral artery disease) ([facility]) 09/28/2019 - Recurrent major depression in partial remission ([facility]) 12/14/2015 - S/P drug eluting coronary stent placement 08/25/2021 LAD and Dg2 - Spinal stenosis PAST SURGICAL HISTORY Procedure Laterality Date - APPENDECTOMY 1979 - ARTHRP ACETBLR/PROX FEM PROSTC AGRFT/ALGRFT Right 03/25/2019 Hip replacement, total - Right - CHOLECYSTECTOMY 1979 Cholecystectomy - COLONOSCOPY 04/03/2017 diverticulosis- repeat 10 years - COLONOSCOPY FLX DX W/COLLJ SPEC WHEN PFRMD 2010 Colonoscopy - EGD 04/03/2017 Gastritis, duodenitis, GERD with esophagitis - PAST SURGICAL HISTORY OF 1994 cervical disc surgery x 3 - STENT PLACEMENT 08/25/2021 RODNEY LAD AND Dg2 - TEAEC W/WO PATCH GRAFT DEEP PROFUNDA FEMORAL Right 10/20/2019 patch angioplasty, Right iliac stent - TONSILLECTOMY PRIMARY/SECONDARY Tonsillectomy - TOTAL ABDOMINAL HYSTERECT W/WO RMVL TUBE OVARY 1979 Hysterectomy, MAURA - TOTAL FACIAL NERVE DECOMPRESSION AND/REPAIR Left 1989 [facility] FAMILY HISTORY Problem Relation Age of Onset - Cancer Mother 50 lung cancer - Hypertension Mother - Cancer Father 50 lung cancer - Cancer Sister 61 lung cancer Social History Tobacco Use - Smoking status: Current Every Day Smoker Packs/day: 2.00 Years: 54.00 Pack years: 108.00 Types: Cigarettes - Smokeless tobacco: Never Used - Tobacco comment: down to 1ppd 10/06/19 Vaping Use - Vaping Use: Never used Substance Use Topics - Alcohol use: Yes - Drug use: No ALLERGIES No Known Allergies Medications: Current Outpatient Medications Medication Sig Dispense Refill - lisinopril (ZESTRIL, PRINIVIL) 40 mg tablet Take 1 tablet by mouth once daily. 90 tablet 3 - albuterol HFA (VENTOLIN HFA) 90 mcg/actuation inhaler Inhale 2 Puffs as instructed every 6 hours as needed for wheezing/shortness of breath. 80 g 0 - venlafaxine ER (EFFEXOR XR) 150 mg 24 hr capsule Take 1 capsule by mouth once daily. 90 capsule 0 - carvedilol (COREG) 6.25 mg tablet TAKE 1 TABLET BY MOUTH TWICE A DAY 180 tablet 3 - atorvastatin (LIPITOR) 80 mg tablet TAKE 1 TABLET BY MOUTH EVERY DAY 90 tablet 3 - aspirin 81 mg chewable tablet Take 1 tablet by mouth once daily. 90 tablet 3 - traZODone (DESYREL) 100 mg tablet Take 2 tablets by mouth daily at bedtime. 60 tablet 5 - amLODIPine (NORVASC) 10 mg tablet TAKE 1 TABLET BY MOUTH EVERY DAY 90 tablet 3 - loratadine (CLARITIN) 10 mg tablet Take 1 tablet by mouth once daily. 30 tablet 5 - omeprazole (PRILOSEC) 40 mg capsule Take 1 capsule by mouth once daily. 30 capsule 5 - clopidogrel (PLAVIX) 75 mg tablet Take 1 tablet by mouth once daily. 90 tablet 3 - isosorbide mononitrate ER (IMDUR) 30 mg 24 hr tablet TAKE 1 TABLET BY MOUTH EVERY DAY (Patient not taking: Reported on 04/30/2022) 90 tablet 3 - nicotine (NICODERM) 21 mg/24 hr Apply 1 Patch as directed every 24 hours. (Patient not taking: Reported on 04/30/2022 ) 28 Patch (more content not included)...[facility]06-20-2022 InstructionsPatient InstructionsJemehreen Ramires APRN.FISH HATCHERY WORKER - 04/30/2022 3:57 PM EDT Images from the original note were not included. CORONARY ARTERY DISEASE View image View image WHAT IS CORONARY ARTERY DISEASE? Coronary artery disease (CAD) is a type of heart disease caused by a problem with the blood vessels that bring blood and oxygen to the heart muscle. These arteries are called the coronary arteries. This disease increases your risk for heart attack and sudden . WHAT IS THE CAUSE? Fatty deposits called plaque may build up in blood vessels and make them narrower. The narrowing decreases the amount of blood flow to the heart. Plaque also increases the chance that blood clots may form and block a blood vessel, which can cause a heart attack or stroke. Your risk for CAD may be higher if you: Have a family history of coronary artery disease at an early age Smoke Have high blood pressure Have diabetes Are very overweight Don t get enough exercise Have high levels of blood fat--for example, high cholesterol WHAT ARE THE SYMPTOMS? Coronary artery disease may not cause any symptoms. When there are symptoms, the most common one is chest pain, called angina. You may feel: A feeling of tightness or heaviness in the chest Squeezing, pressure, or burning in the chest Angina symptoms usually: Last for 5 minutes or less and go away with rest or medicine such as nitroglycerin. Happen when the heart has to work harder, such as after a heavy meal or during physical activity oremotional stress. Angina may also happen when you are resting. Call 911 for emergency help right away if you have symptoms of a heart attack. The most common symptoms include: Chest pain or pressure, squeezing, or fullness in the center of your chest that lasts more than a few minutes, or goes away and comes back (may feel like indigestion or heartburn) Pain or discomfort in one or both arms or shoulders, or in your back, neck, jaw, or stomach Trouble breathing Breaking out in a cold sweat for no known reason If your provider has prescribed nitroglycerin for angina, pain that does not go away after taking your nitroglycerin as directed Along with these symptoms, you may also feel very tired, faint, or be sick to your stomach. HOW IS IT DIAGNOSED? Your healthcare provider will ask about your symptoms and medical history and examine you. Tests mayinclude: Blood tests An ECG (also called an EKG or electrocardiogram), which measures and records your heartbeat. An exercise treadmill test to see how your heart works when you exercise An echocardiogram, which uses sound waves (ultrasound) to see how well your heart is pumping Angiogram, which is a series of X-rays taken after your healthcare provider injects a special dye into your blood vessels to show the boudreaux of the arteries and any blockage CT scan, which uses X-rays and a computer to show detailed pictures of the arteries HOW IS IT TREATED? Your treatment depends on many factors, such as your age, heart muscle function, and other health problems. At first, treatment may include diet changes and an exercise program. Your healthcare provider may prescribe medicine. Many people need to take 2 or more medicines to help prevent a heart attack or stroke. It may take several weeks or months to find the best treatment for you. Your provider may also prescribe other types of medicine to lower blood pressure, help stop chest pain, control an irregular heartbeat, help prevent blood clots, or lower blood fat (cholesterol). Your provider may recommend a daily low dose of aspirin. Taking an aspirin every day may lower your risk for a heart attack or stroke. Not everyone should take aspirin. Daily use of aspirin can cause problems, such as stomach irritation, bleeding, and hearing loss. Ask your healthcare provider if you should take aspirin and if so, how much to take. If your coronary arteries are badly blocked, you may need balloon angioplasty or bypass surgery. A balloon angioplasty opens blocked blood vessels and improves blood flow. A metal mesh device called a stent is usually left in the blood vessels to help keep them open. Bypass surgery uses blood vessels from other parts of the body, or manmade material, to make a new path around a blocked area. HOW CAN I TAKE CARE OF MYSELF? CC If you have coronary artery disease, there are things you can do to take care of yourself now and prevent problems in the future. Follow your provider's advice about activity, exercise, medicine, and follow-up visits. Lower the amount of salt, saturated and trans fats, and cholesterol in your diet. Work with your healthcare provider to control diabetes, blood pressure, or other health problems you may have. Try to keep a healthy weight. If you are overweight, talk to your provider about ways to lose weight. If you smoke, try to quit. Talk to your healthcare provider about ways to quit smoking. Ask your healthcare provider: o How and when you will hear your test results o How long it will take to recover o What activities you should avoid and when you can return to your normal activities o How to take care of yourself at home o What symptoms or problems you should watch for and what to do if you have them Make sure you know when you should come back for a checkup. HOW CAN I HELP PREVENT CORONARY ARTERY DISEASE? You can prevent this disease with a heart-healthy lifestyle: Eat a healthy diet and keep a healthy weight. Stay fit with the right kind of exercise for you. Find ways to manage stress. Don t smoke. Limit your use of alcohol. Talk to your healthcare provider about your personal and family medical history and your lifestyle habits. This will help you know what you can do to lower your risk for coronary artery disease. If you have a strong family history of CAD, a healthy lifestyle may slow the start of the disease and maybe even keep you from getting it. However, you must have regular checkups to keep a close watch on the health of your heart. Developed by [employer]. Published by [employer]. Copyright 2014 [employer] and/or one of its subsidiaries. All rights reserved. documented in this encounterC[facility] History of Present illness NarrativeTracy Ramires APRN.CNP - 04/30/2022 3:36 PM EDT Chief Complaint Patient presents with: 6 month check increased SOB History of Present Illness: Vince Koenig is a 66 year old female who presents for routine follow up. CAD (s/p RODNEY to LAD and D1 08/25/2021), HLD, HTN, PAD, COPD, current smoker. She was last seen by myself in office on 12/04/2021 in a virtual visit. She states she has felt as if she has become more short of breath over the past 6-months. She feels like this occurs with exertion and at rest. She does feel like it is pulmonary in nature. She has PFTs and appointment with pulmonary scheduled in May. She does feel very limited by her shortness of breath and is not able to be very active. She denies other cardiac complaints such as chest pain, chest pain with activity, palpitations, dizziness, syncope, orthopnea, LE swelling. We plan to start with checking an echocardiogram for further evaluation of SOB. We reviewed cardiacrisk factors and modifications. Unfortunately, she continues to smoke. She reports patient taking medications as prescribed and requests for refills were sent to her pharmacy. PAST MEDICAL HISTORY Diagnosis Date Acute pancreatitis 2010 Anisha Cruz Alcohol use disorder 01/18/2016 Dr. Angie Jones, [facility] Anxiety 12/14/2015 Bipolar affective disorder, currently active ([facility]) 01/18/2016 Dr. Angie Jones, [facility] Chronic bronchitis ([facility]) 07/26/2016 Closed skull fracture ([facility]) 1994 [facility], [facility] Coronary artery disease DDD (degenerative disc disease), cervical Endometriosis 2007 Essential hypertension 12/14/2015 GERD (gastroesophageal reflux disease) 03/13/2019 History of colon polyps History of gastric ulcer 12/14/2015 HLD (hyperlipidemia) Injury of left facial nerve 1994 PAD (peripheral artery disease) ([facility]) 09/28/2019 Recurrent major depression in partial remission ([facility]) 12/14/2015 S/P drug eluting coronary stent placement 08/25/2021 LAD and Dg2 Spinal stenosis PAST SURGICAL HISTORY Procedure Laterality Date APPENDECTOMY 1979 ARTHRP ACETBLR/PROX FEM PROSTC AGRFT/ALGRFT Right 03/25/2019 Hip replacement, total - Right CHOLECYSTECTOMY 1979 Cholecystectomy COLONOSCOPY 04/03/2017 diverticulosis- repeat 10 years COLONOSCOPY FLX DX W/COLLJ SPEC WHEN PFRMD 2010 Colonoscopy EGD 04/03/2017 Gastritis, duodenitis, GERD with esophagitis PAST SURGICAL HISTORY OF 1994 cervical disc surgery x 3 STENT PLACEMENT 08/25/2021 RODNEY LAD & Dg2 TEAEC W/WO PATCH GRAFT DEEP PROFUNDA FEMORAL Right 10/20/2019 patch angioplasty, Right iliac stent TONSILLECTOMY PRIMARY/SECONDARY <AGE 12 1960 Tonsillectomy TOTAL ABDOMINAL HYSTERECT W/WO RMVL TUBE OVARY 1979 Hysterectomy, MAURA TOTAL FACIAL NERVE DECOMPRESSION &/REPAIR Left 1989 [facility] FAMILY HISTORY Problem Relation Age of Onset Cancer Mother 50 lung cancer Hypertension Mother Cancer Father 50 lung cancer Cancer Sister 61 lung cancer Social History Tobacco Use Smoking status: Current Every Day Smoker Packs/day: 2.00 Years: 54.00 Pack years: 108.00 Types: Cigarettes Smokeless tobacco: Never Used Tobacco comment: down to 1ppd 10/06/19 Vaping Use Vaping Use: Never used Substance Use Topics Alcohol use: Yes Drug use: No ALLERGIES No Known Allergies Medications: Current Outpatient Medications Medication Sig Dispense Refill lisinopril (ZESTRIL, PRINIVIL) 40 mg tablet Take 1 tablet by mouth once daily. 90 tablet 3 albuterol HFA (VENTOLIN HFA) 90 mcg/actuation inhaler Inhale 2 Puffs as instructed every 6 hours asneeded for wheezing/shortness of breath. 80 g 0 venlafaxine ER (EFFEXOR XR) 150 mg 24 hr capsule Take 1 capsule by mouth once daily. 90 capsule 0 carvedilol (COREG) 6.25 mg tablet TAKE 1 TABLET BY MOUTH TWICE A DAY 180 tablet 3 atorvastatin (LIPITOR) 80 mg tablet TAKE 1 TABLET BY MOUTH EVERY DAY 90 tablet 3 aspirin 81 mg chewable tablet Take 1 tablet by mouth once daily. 90 tablet 3 traZODone (DESYREL) 100 mg tablet Take 2 tablets by mouth daily at bedtime. 60 tablet 5 amLODIPine (NORVASC) 10 mg tablet TAKE 1 TABLET BY MOUTH EVERY DAY 90 tablet 3 loratadine (CLARITIN) 10 mg tablet Take 1 tablet by mouth once daily. 30 tablet 5 omeprazole (PRILOSEC) 40 mg capsule Take 1 capsule by mouth once daily. 30 capsule 5 clopidogrel (PLAVIX) 75 mg tablet Take 1 tablet by mouth once daily. 90 tablet 3 isosorbide mononitrate ER (IMDUR) 30 mg 24 hr tablet TAKE 1 TABLET BY MOUTH EVERY DAY (Patient not taking: Reported on 04/30/2022) 90 tablet 3 nicotine (NICODERM) 21 mg/24 hr Apply 1 Patch as directed every 24 hours. (Patient not taking: Reported on 04/30/2022 ) 28 Patch 1 Nicotine Polacrilex [address] 1 Lozenge between cheek and gum as needed. (Patient not taking: Reported on 04/30/2022 ) 168 Lozenge 2 oxyCODONE-acetaminophen (PERCOCET) 5-325 mg tablet Take 1 tablet by mouth every 8 hours as needed. Patient has a fractured elbow and due to cardiac reasons cannot have surgery at this time, and will require greater than 30 MEDD to treat chronic pain (ICD-10 code G89.18). (Patient not taking: Reportedon 04/30/2022) 15 tablet 0 hydrOXYzine pamoate (VISTARIL) 25 mg capsule Take 1 capsule by mouth three times daily as needed for Anxiety. (Patient not taking: Reported on 04/30/2022 ) 90 capsule 0 clopidogrel (PLAVIX) 75 mg tablet Take 1 tablet by mouth once daily. 30 Each 3 Current Facility-Administered Medications Medication Dose Route Frequency Provider Last Rate Last Admin perflutren lipid microspheres 1.3 mL in NaCl (PF) 0.9% 10 mL injection (DEFINITY) INTRAVENOUS DIRECTED PRN Tracy Ramires, 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 sodium chloride 0.9 % (flush) 10 mL (BD POSIFLUSH) 10 mL INTRAVENOUS DIRECTED PRN Tracy Ramires, 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 perflutren lipid microspheres 1.3 mL in NaCl (PF) 0.9% 10 mL injection (DEFINITY) INTRAVENOUS DIRECTED PRN Tracy Ramires, 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 sodium chloride 0.9 % (flush) 10 mL (BD POSIFLUSH) 10 mL INTRAVENOUS DIRECTED PRN Tracy Ramires, 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 Review of Systems Constitutional: Negative for chills, diaphoresis, fever, malaise/fatigue and weight loss. HENT: Negative for congestion, ear pain, nosebleeds, sinus pain and sore throat. Eyes: Negative for pain. Respiratory: Positive for shortness of breath. Negative for cough and wheezing. Cardiovascular: Negative for chest pain, palpitations, orthopnea, claudication, leg swelling and PND. Gastrointestinal: Negative for abdominal pain, blood in stool and melena. Genitourinary: Negative for hematuria. Musculoskeletal: Negative for falls. Neurological: Negative for dizziness, tingling, sensory change, speech change, focal weakness, loss of consciousness, weakness and headaches. Endo/Heme/Allergies: Does not bruise/bleed easily. Psychiatric/Behavioral: Negative for depression, memory loss and suicidal ideas. The patient is not nervous/anxious and does not have insomnia. Physical Examination: Vitals:BP 138/75 Pulse 83 Wt 127 lb (57.6kg) Last 2 Encounter Wt Readings: Date: Wt: 03/13/2022 134 lb 4.8 oz (60.9 kg) 10/30/2021 133 lb (60.3 kg) Physical Exam HENT: Head: Normocephalic. Eyes: Pupils: Pupils are equal, round, and reactive to light. Cardiovascular: Rate and Rhythm: Normal rate and regular rhythm. Pulses: Radial pulses are 2+ on the right side and 2+ on the left side. Dorsalis pedis pulses are 2+ on the right side and 2+ on the left side. Heart sounds: Normal heart sounds, S1 normal and S2 normal. Pulmonary: Effort: Pulmonary effort is normal. No accessory muscle usage or respiratory distress. Breath sounds: Wheezing present. Abdominal: General: Bowel sounds are normal. Palpations: Abdomen is soft. Musculoskeletal: General: Normal range of motion. Cervical back: Normal range of motion. Right lower leg: No edema. Left lower leg: No edema. Skin: General: Skin is warm and dry. Neurological: Mental Status: She is alert and oriented to person, place, and time. Gait: Gait is intact. Psychiatric: Mood and Affect: Affect normal. Cognition and Memory: Memory normal. Judgment: Judgment normal. Most Recent Cardiac Testing Stress Test Stress testing 08/14/2021 CONCLUSIONS: 1. SPECT Perfusion Study: Normal. 2. There is no scintigraphic evidence for inducible ischemia. 3. No evidence of scarred myocardium. 4. Left ventricle is normal in size. The left ventricle systolic function is normal. 5. This is a low risk scan. Gated Stress FBP LVEF % 55 Stress IR:3D Gated Stress FBP LVEF: 55 % ED Volume: 89 ml ES Volume: 40 ml TID: 1.40 Stress ECG Conclusion: Conclusion: Normal Cardiac Catheretization 08/25/2021 Findings: Left main Normal LAD 60% mid stenosis at the bifurcation of D1. D1 with 70% ostial stenosis LCx 40% OM2 stenosis RCA mild diffuse disease DFR of the mid LAD stenosis was 0.89 which is hemodynamically significant DFR of D1 was 0.83 which is hemodynamically significant LVEDP: 21mmHg Successful IVUS guided PCI of the LAD/D1 bifurcation with a 3.0x48mm Synergy RODNEY in the LAD, post dilated to 3.2mm, and 2.25mm Synergy RODNEY in D1, post dilated to 2.5mm. The post dilated was performed in kissing fashion, which makes the pot dilation diameter of the proximal LAD portion of the stent 3.7mm, with alevism of blood flow, no residual stenosis. Assessment and Plan: CAD -S/p RODNEY to LAD and RODNEY to D1 -SOB that has worsened both at rest and with activity. Has upcoming pulmonary evaluation. Will checkan echocardiogram for cardiology evaluation -EF 55% -continue ASA, plavix, statin, coreg -encouraged routine activity and heart healthy diet for risk factor modification HTN -138/75 -Continue current medication(s) -Encouraged dietary sodium restriction/DASH diet -Recommended regular aerobic exercise. -Recommend home blood pressure monitoring, to bring results in on next visit -Goal of BP <130/80 HLD -lipid panel 09/27/2021 LDL 101 -continue Lipitor 80 mg, admits to missing doses. encouraged compliance with Lipitor Carotid stenosis -mild US 06/2021 -continue ASA, statin Tobacco use -Encouraged cessation -Physiologic and physical aspects of tobacco addiction as well as strategies for quitting were discussed. -Counseling was given focusing on the harmful effects of this addiction especially given the patient's medical condition(s) which will be worsened because of the chemicals in tobacco. Follow up in 6 months. Sooner for abnormal testing results. Patient to call with any issues or concerns prior to then. Some elements were copied from my note dated 12/04/2021, which have been updated where appropriate, and all reflect current medical decision making from today Electronically signed by Tracy Ramires APRN.LINDA on April 30, 2022, 3:36 PM documented in this encounterC[facility] Miscellaneous Notes Telephone Encounter - Jasmine Ramos LPN - 04/03/2022 10:00 AM EDT Last see pcp [facility] [employer] 02/14/21. Next appt with [facility] [employer] 05/04/22. elephone Encounter - Cailin Simons Pss - 04/03/2022 9:48 AM EDT Patient has been identified by name and date of : Yes Pending Prescriptions Disp Refills ALBUTEROL SULFATE HFA 90 MCG/ACTUATION AEROSOL INHALER 80 g 5 Sig: Inhale 2 Puffs as instructed every 6 hours as needed for wheezing/shortness of breath. BECKY: No RX INSTRUCTIONS: Patient aware RX will be sent to pharmacy. No need to notify patient. Cailin Siomns Pss documented in this encounterCleveland [facility]05-03-2022 NoteHNO ID: [id number] Author: Savanna Kenny APRN.FISH HATCHERY WORKER Service: ? Author Type: Nurse Practitioner Type: Progress Notes Filed: 05/30/2022 8:33 AM Note Text: LUNG SCREENING VISIT PRIMARY CARE PHYSICIAN: Ulises Hermosillo MD Results will be communicated via letter or electronic record if applicable. Visit Delivery: In Person Patient Visit Type: New to Screening Results will be communicated via letter or electronic record. REQUESTER: The referring provider advised the patient to have screening. HISTORY OF PRESENT ILLNESS: Vince Koenig is a 66 year old active smoker who presents for lung screening. PMH of CAD s/p stents 08/15/2021, HLD and HTN Respiratory symptoms include: SOB: Yes with ambulating 300 meters, has to take frequent short breaks between activities. Ongoing since the past one year. Chest tightness: No Coughing: Yes: With mucus Clear and Thick Hemoptysis: No Wheezing: Yes uses Albuterol HFA prn Fever/Chills: No Recent Respiratory Infection: No Unintentional weight loss: No Last 6 Encounter Wt Readings: Date: Wt: 03/13/2022 60.9 kg (134 lb 4.8 oz) 10/30/2021 60.3 kg (133 lb) 10/19/2021 59.9 kg (132 lb) 09/27/2021 62.1 kg (137 lb) 08/16/2021 55.8 kg (123 lb) 06/12/2021 62.6 kg (138 lb) ECOG PERFORMANCE STATUS: 2- Ambulatory and capable of all selfcare; unable to carry out work activities. Up and about > 50% of waking hrs. Modified Medical Research [place] Dyspnea Scale (MMRC) On level ground I walk slower than people of the same age because of breathlessness, or have to stop for breath when walking at my own pace 2 Lung Cancer Risk Factors: 1.Tobacco Use: Start Age 12, Quit Age N/A , Average packs per day 2, Pack Years 110. 2. Passive Smoke Exposure: Yes as a child. 3. Personal hx of malignancy: No. 4. Significant exposures (1 year or more of exposure): None. 5. Race: White. 6. Education:Less than highschool 7. BMI:Body mass index is 22.35 kg/m?. 8. COPD: Yes 9. Pneumonia in the past 5 years: No 10. Is there a history of lung cancer in a first degree relative? Yes father and mother 11. Is there a history of lung cancer in a non first degree relative? No 12. Is there a history of any other cancer in a first degree relative? No. PAST MEDICAL HISTORY Diagnosis Date - Acute pancreatitis 2010 Anisha Cruz - Alcohol use disorder 01/18/2016 Dr. Angie Jones, [facility] - Anxiety 12/14/2015 - Bipolar affective disorder, currently active ([facility]) 01/18/2016 Dr. Angie Jones, [facility] - Chronic bronchitis ([facility]) 07/26/2016 - Closed skull fracture ([facility]) [facility] - Coronary artery disease - DDD (degenerative disc disease), cervical - Endometriosis 2007 - Essential hypertension 12/14/2015 - GERD (gastroesophageal reflux disease) 03/13/2019 - History of colon polyps - History of gastric ulcer 12/14/2015 - HLD (hyperlipidemia) - Injury of left facial nerve 1994 - PAD (peripheral artery disease) ([facility]) 09/28/2019 - Recurrent major depression in partial remission ([facility]) 12/14/2015 - S/P drug eluting coronary stent placement 08/25/2021 LAD and Dg2 - Spinal stenosis PAST SURGICAL HISTORY Procedure Laterality Date - APPENDECTOMY 1979 - ARTHRP ACETBLR/PROX FEM PROSTC AGRFT/ALGRFT Right 03/25/2019 Hip replacement, total - Right - CHOLECYSTECTOMY 1979 Cholecystectomy - COLONOSCOPY 04/03/2017 diverticulosis- repeat 10 years - COLONOSCOPY FLX DX W/COLLJ SPEC WHEN PFRMD 2010 Colonoscopy - EGD 04/03/2017 Gastritis, duodenitis, GERD with esophagitis - PAST SURGICAL HISTORY OF 1994 cervical disc surgery x 3 - STENT PLACEMENT 08/25/2021 RODNEY LAD AND Dg2 - TEAEC W/WO PATCH GRAFT DEEP PROFUNDA FEMORAL Right 10/20/2019 patch angioplasty, Right iliac stent - TONSILLECTOMY PRIMARY/SECONDARY Tonsillectomy - TOTAL ABDOMINAL HYSTERECT W/WO RMVL TUBE OVARY 1979 Hysterectomy, MAURA - TOTAL FACIAL NERVE DECOMPRESSION AND/REPAIR Left 1989 [facility] FAMILY HISTORY Problem Relation Age of Onset - Cancer Mother 50 lung cancer - Hypertension Mother - Cancer Father 50 lung cancer - Cancer Sister 61 lung cancer venlafaxine ER (EFFEXOR XR) 150 mg 24 hr capsule Take 1 capsule by mouth once daily. isosorbide mononitrate ER (IMDUR) 30 mg 24 hr tablet TAKE 1 TABLET BY MOUTH EVERY DAY carvedilol (COREG) 6.25 mg tablet TAKE 1 TABLET BY MOUTH TWICE A DAY atorvastatin (LIPITOR) 80 mg tablet TAKE 1 TABLET BY MOUTH EVERY DAY aspirin 81 mg chewable tablet Take 1 tablet by mouth once daily. traZODone (DESYREL) 100 mg tablet Take 2 tablets by mouth daily at bedtime. albuterol HFA (VENTOLIN HFA) 90 mcg/actuation inhaler Inhale 2 Puffs as instructed every 6 hours as needed for wheezing/shortness of breath. nicotine (NICODERM) 21 mg/24 hr Apply 1 Patch as directed every 24 hours. Nicotine Polacrilex [address] 1 Lozenge between cheek and gum as needed. (more content not included)...[facility]05-[facility] InstructionsPatient InstructionsSavanna Kenny APRN.FISH HATCHERY WORKER - 03/13/2022 2:44 PM EDT Cigarette Logs : Record every single smoked cigarette on a cigarette log (either on their smartphoneor with paper and pencil) contiguous to the smoking. Logging your smoked cigarettes in real-time (while smoking) helps quantify consumption accurately and helps you and your act of smoking become more mindful versus automatically, habitually without thought or cognizance. You can't change something ifyou can't measure the change. We discussed behavioral modification methods in order to unpair certain habits of smoking with specific activities and to help wean down the patient's smoking over time in order to minimize withdrawal effects of reduction in nicotine intake. Patient was instructed to smoke every hour on the hour during waking hours and not pair the cigarette with a normal activity such as coffee or driving as he or she normally would have. Patient was instructed to do this for a week and then cut back to smoking onecigarette every other hour for the second week, then cut back to smoking a cigarette every third hour on the third week, and quit on week 4. I instructed patient when starting this method to not smoke any more cigarettes than they normally would have smoked in a day and if they smoke less than 15-16 cigarettes per day to set those cigarettes out ahead of time and space them out evenly throughout the day to ensure they aren't increasing their cigarette consumption. We discussed behavioral modification interventions such as changing home environment smoking outsidethe house only. Avoid smoking the in car while driving. Place cigarettes in hard to reach areas such as in the care trunk, clean out all extra amanda trays Oral Substitutes/Hydration Drinking water is a superb coping technique. Snacking on crunchy, nutrient dense, low calorie foods such as chopped peppers, celery, or carrots can be extremely helpful. Using cinnamon sticks, plastic straws, and sugarless gum/ candy are also excellent oral substitutes. Phone [phone] ([phone]) as additional resource. CT Lung Screen Results The CT scan that you will have done today will show if you have any nodules (small spots) in your lungs that are suspicious for cancer. Around 90% of the patients who have this scan done are found to have at least one nodule. Most nodules are benign (not cancer) and of no harm to you at all. A specialist will make a scientific evaluation about whether or not a nodule is worrisome based on its size and shape. The radiologist who will read your scan will put it into one of four categories: LUNG-RADS Category Description Overall Probability of Malignancy Recommended Follow-Up 1 Negative No nodules and definitely benign (non-cancerous nodules) Essentially 0. 1 Year - Follow-up Low dose CT 2 Benign Appearance or Behavior Nodules with a very low likelihood of becoming cancer due to size orlack of growth Less than 1% 1 Year - Follow-up Low dose CT 3 Probably Benign Probably benign finding, short term follow-up recommended 1 to 2% 6 Months - Follow-up Low dose CT 4 Suspicious Findings for which additional diagnostic testing and/or biopsy is recommended Will be calculated based on nodule characteristics. Dependent on what is seen on the exam. At times, we may see something outside of the lungs on the scan that could be a health concern. Below are some of the most common findings: S Clinically Significant or Potentially Clinically Significant Findings (non lung cancer) Referral or additional imaging/labs depending on result. Approximately 10% of people receive this result. Coronary Artery Calcifications (Moderate or Severe) - Referral to cardiology for further work-up andrecommendations. Thyroid Nodule - TSH level and Thyroid Ultrasound dependent on size, referral to endocrinology. Adrenal Nodule - Blood work and referral to endocrinology. Others Lung Cancer Screening hotline: [phone] Lung Cancer Screening [phone] Billing Questions: or [email or web address] Lung Cancer Screening Team: Linda Meyer CNP; Crysatl Kenny CNP; Eri Cheung CNP; Agata Cruz CNP, Naz Shah, JAYMIEC: [phone] Bouchra Ceunca PA-C documented in this encounterC[facility]05-[facility]22 History of Present illness Dalton Kenny APRN.LINDA - 03/13/2022 2:10 PM EDT Images from the original note were not included. LUNG SCREENING VISIT PRIMARY CARE PHYSICIAN: Ulises Hermosillo MD Results will be communicated via letter or electronic record if applicable. Visit Delivery: In Person Patient Visit Type: New to Screening Results will be communicated via letter or electronic record. REQUESTER: The referring provider advised the patient to have screening. HISTORY OF PRESENT ILLNESS: Vince Koenig is a 66 year old active smoker who presents for lung screening. PMH of CAD s/p stents 08/15/2021, HLD and HTN Respiratory symptoms include: SOB: Yes with ambulating 300 meters, has to take frequent short breaks between activities. Ongoing since the past one year. Chest tightness: No Coughing: Yes: With mucus Clear and Thick Hemoptysis: No Wheezing: Yes uses Albuterol HFA prn Fever/Chills: No Recent Respiratory Infection: No Unintentional weight loss: No Last 6 Encounter Wt Readings: Date: Wt: 03/13/2022 60.9 kg (134 lb 4.8 oz) 10/30/2021 60.3 kg (133 lb) 10/19/2021 59.9 kg (132 lb) 09/27/2021 62.1 kg (137 lb) 08/16/2021 55.8 kg (123 lb) 06/12/2021 62.6 kg (138 lb) ECOG PERFORMANCE STATUS: 2- Ambulatory and capable of all selfcare; unable to carry out work activities. Up and about > 50% of waking hrs. Modified Medical Research [place] Dyspnea Scale (MMRC) On level ground I walk slower than people of the same age because of breathlessness, or have to stopfor breath when walking at my own pace 2 Lung Cancer Risk Factors: 1.Tobacco Use: Start Age 12, Quit Age N/A , Average packs per day 2, Pack Years 108. 2. Passive Smoke Exposure: Yes as a child. 3. Personal hx of malignancy: No. 4. Significant exposures (1 year or more of exposure): None. 5. Race: White. 6. Education:Less than highschool 7. BMI:Body mass index is 22.35 kg/m . 8. COPD: Yes 9. Pneumonia in the past 5 years: No 10. Is there a history of lung cancer in a first degree relative? Yes father and mother 11. Is there a history of lung cancer in a non first degree relative? No 12. Is there a history of any other cancer in a first degree relative? No. PAST MEDICAL HISTORY Diagnosis Date Acute pancreatitis 2010 Anisha Cruz Alcohol use disorder [facility]/18[facility] Anxiety 12/14/2015 Bipolar affective disorder, currently active ([facility]) 01/18/2016 [facility] Chronic bronchitis ([facility]) 07/26/2016 Closed skull fracture ([facility]) 1994 [facility] Coronary artery disease DDD (degenerative disc disease), cervical Endometriosis 2007 Essential hypertension 12/14/2015 GERD (gastroesophageal reflux disease) 03/13/2019 History of colon polyps History of gastric ulcer 12/14/2015 HLD (hyperlipidemia) Injury of left facial nerve 1994 PAD (peripheral artery disease) ([facility]) 09/28/2019 Recurrent major depression in partial remission ([facility]) 12/14/2015 S/P drug eluting coronary stent placement 08/25/2021 LAD and Dg2 Spinal stenosis PAST SURGICAL HISTORY Procedure Laterality Date APPENDECTOMY 1979 ARTHRP ACETBLR/PROX FEM PROSTC AGRFT/ALGRFT Right 03/25/2019 Hip replacement, total - Right CHOLECYSTECTOMY 1979 Cholecystectomy COLONOSCOPY 04/03/2017 diverticulosis- repeat 10 years COLONOSCOPY FLX DX W/COLLJ SPEC WHEN PFRMD 2010 Colonoscopy EGD 04/03/2017 Gastritis, duodenitis, GERD with esophagitis PAST SURGICAL HISTORY OF 1994 cervical disc surgery x 3 STENT PLACEMENT 08/25/2021 RODNEY LAD & Dg2 TEAEC W/WO PATCH GRAFT DEEP PROFUNDA FEMORAL Right 10/20/2019 patch angioplasty, Right iliac stent TONSILLECTOMY PRIMARY/SECONDARY <AGE 12 1960 Tonsillectomy TOTAL ABDOMINAL HYSTERECT W/WO RMVL TUBE OVARY 1979 Hysterectomy, MAURA TOTAL FACIAL NERVE DECOMPRESSION &/REPAIR Left 1989 [facility] FAMILY HISTORY Problem Relation Age of Onset Cancer Mother 50 lung cancer Hypertension Mother Cancer Father 50 lung cancer Cancer Sister 61 lung cancer venlafaxine ER (EFFEXOR XR) 150 mg 24 hr capsule Take 1 capsule by mouth once daily. isosorbide mononitrate ER (IMDUR) 30 mg 24 hr tablet TAKE 1 TABLET BY MOUTH EVERY DAY carvedilol (COREG) 6.25 mg tablet TAKE 1 TABLET BY MOUTH TWICE A DAY atorvastatin (LIPITOR) 80 mg tablet TAKE 1 TABLET BY MOUTH EVERY DAY aspirin 81 mg chewable tablet Take 1 tablet by mouth once daily. traZODone (DESYREL) 100 mg tablet Take 2 tablets by mouth daily at bedtime. albuterol HFA (VENTOLIN HFA) 90 mcg/actuation inhaler Inhale 2 Puffs as instructed every 6 hours as needed for wheezing/shortness of breath. nicotine (NICODERM) 21 mg/24 hr Apply 1 Patch as directed every 24 hours. Nicotine Polacrilex [address] 1 Lozenge between cheek and gum as needed. oxyCODONE-acetaminophen (PERCOCET) 5-325 mg tablet Take 1 tablet by mouth every 8 hours as needed. Patient has a fractured elbow and due to cardiac reasons cannot have surgery at this time, and will require greater than 30 MEDD to treat chronic pain (ICD-10 code G89.18). lisinopril (ZESTRIL, PRINIVIL) 40 mg tablet Take 1 tablet by mouth once daily. amLODIPine (NORVASC) 10 mg tablet TAKE 1 TABLET BY MOUTH EVERY DAY loratadine (CLARITIN) 10 mg tablet Take 1 tablet by mouth once daily. omeprazole (PRILOSEC) 40 mg capsule Take 1 capsule by mouth once daily. clopidogrel (PLAVIX) 75 mg tablet Take 1 tablet by mouth once daily. hydrOXYzine pamoate (VISTARIL) 25 mg capsule Take 1 capsule by mouth three times daily as needed forAnxiety. clopidogrel (PLAVIX) 75 mg tablet Take 1 tablet by mouth once daily. ALLERGIES No Known Allergies The medications and allergies were reviewed and reconciled for this patient and deemed current. Health Maintenance Immunization History Administered Date(s) Administered COVID-19 vaccine, age 12+ yr (RoboEd - SIGALA TOP) 11/21/2021 Influenza Seasonal Inj Quad Age 6 Mo - 64 Yrs 01/06/2020 Pneumovax 04/21/2018 influenza, high-dose, quadrivalent vaccine (FLUZONE HIGH DOSE QUADRIVALENT) 08/23/2020 Colonoscopy: 04/03/2017 Mammogram: DATA REVIEW I have directly visualized the testing documented: Prior Imaging: CT: Yes 2020 Abnormal Done at [facility] 01/2021 CXR: Yes Year 2020 Abnormal Nonspecific prominence of bronchovascular markings at the lung bases. No consolidation. No lung mass. No pleural effusion. No pneumothorax. Pulmonary Function Testing: PFT:No textual results found for the specified procedure(s). PHYSICAL EXAM: BP 157/76 (BP Site: Left Arm, BP Position: Sitting, BP Cuff Size: Regular Adult) Pulse 81 Ht 165.1 cm (5' 5 ) Wt 60.9 kg (134 lb 4.8 oz) LMP (LMP Unknown) SpO2 96% BMI 22.35 kg/m General appearance: Well appearing, alert, in no acute distress, well-hydrated, well nourished. Skin: Skin color normal, no suspicious rashes or lesions Oropharynx: Lips, mucosa normal, oropharynx normal Neck: Supple, no adenopathy Lungs: Diminished in all lung randle Heart: RRR without murmur, gallop, or rubs. No ectopy Musculoskeletal: No joint swelling, deformity, or tenderness Peripheral pulses: Pulses palpable, radial=4/4 Neuro: Alert & oriented X 3 ASSESSMENT and RECOMMENDATIONS: 1. Screening for lung cancer: Six year risk for lung cancer: 23.1 % Source: Fooooo [email or web address] [email or web address]/[email or web address]/[email or web address]/tiny/oa8j0 I have determined that the patient is eligible for a low dose CT based on age, absence of signs or symptoms of lung cancer, and total pack years: Yes. The patient and I engaged in shared decision making, including the use of one or more decision aids,to include benefits, harms, follow-up diagnostic testing, over-diagnosis, false positive rate, and total radiation exposure. The patient understands and feels comfortable with it: Yes. The patient was counseled on the importance of adherence to annual LDCT lung cancer screening, impact of comorbidities and ability or willingness to undergo diagnosis and treatment. The patient understands and feels comfortable with it:Yes. 2. Dyspnea on exertion: Worsening since the past year PFTs Continue albuterol HFA prn 3. Nicotine dependence: The patient was counseled on the importance of smoking cessation if current smoker and, if appropriate, offered additional tobacco cessation counseling services - Smoking Cessation Counseling. SMOKING CESSATION COUNSELING Smoking cessation methods including Behavior Modification were discussed with the patient and assistance offered. Smokes 1 PPD. Declined NRTs. Discussed Behavior Modification We discussed behavioral modification methods in order to unpair certain habits of smoking with specific activities and to help wean down the patient's smoking over time in order to minimize withdrawal effects of reduction in nicotine intake. Patient was instructed to smoke every hour on the hour during waking hours and not pair the cigarette with a normal activity such as coffee or driving as he or she normally would have. Patient was instructed to do this for a week and then cut back to smoking onecigarette every other hour for the second week, then cut back to smoking a cigarette every third hour on the third week, and quit on week 4. I instructed patient when starting this method to not smoke any more cigarettes than they normally would have smoked in a day and if they smoke less than 15-16 cigarettes per day to set those cigarettes out ahead of time and space them out evenly throughout the day to ensure they aren't increasing their cigarette consumption. Cigarette Logs : Record every single smoked cigarette on a cigarette log (either on their smartphoneor with paper and pencil) contiguous to the smoking. Logging your smoked cigarettes in real-time (while smoking) helps quantify consumption accurately and helps you and your act of smoking become more mindful versus automatically, habitually without thought or cognizance. You can't change something ifyou can't measure the change. Oral Substitutes/Hydration Drinking water is a superb coping technique. Snacking on crunchy, nutrient dense, low calorie foods such as chopped peppers, celery, or carrots can be extremely helpful. Using cinnamon sticks, plastic straws, and sugarless gum/ candy are also excellent oral substitutes. Phone 888-ZXCM-PCH ([phone]) as additional resource. The medical conditions adversely affected by cigarette use include:COPD and Emphysema. The patient is currently not ready to quit. I personally spent 6 minutes in counseling. The time spent in smoking cessation counseling is exclusive of any other counseling during this visit. I spent a total of 30 minutes on the date of the service which included preparing to see the patient, [id number] patient care, completing clinical documentation, obtaining and/or reviewing separatelyobtained history, performing a medically appropriate examination, counseling and educating the patien t/family/caregiver, ordering medications, tests, or procedures and communicating results to the patient/family/caregiver. Savnana Kenny APRN.FISH HATCHERY WORKER NPI #: [id number] 2:10 PM documented in this encounterC[facility]22 Miscellaneous NotesTelephone Encounter - Joyce Woody APRN.CNS - 03/01/2022 3:53 PM EDT please schedule visit with Ulises Hermosillo MD or Oly Smith elephone Encounter - Jasmine Ramos LPN - 03/01/2022 2:31 PM EDT last seen 02/14/21 elephone Encounter - Isadora Anglin - 03/01/2022 1:50 PM EDT Patient has been identified by name and date of : Yes Pending Prescriptions Disp Refills VENLAFAXINE ER 150 MG CAPSULE,EXTENDED RELEASE 24 HR 90 capsule 0 Sig: Take 1 capsule by mouth once daily. BECKY: No RX INSTRUCTIONS: Patient aware RX will be sent to pharmacy. No need to notify patient. Isadora Guillene documented in this encounterC[facility]01-24-2022 NoteHNO ID: [id number] Author: Tracy Ramires APRN.FISH HATCHERY WORKER Service: ? Author Type: Nurse Practitioner Type: Progress Notes Filed: 12/05/2021 11:10 AM Note Text: - Telephone Encounter - [facility] Cardiology Service Established Patient PRIMARY CARE PHYSICIAN: Ulises Hermosillo [address] [place] [address] Telephone Visit: Patient consents to a telephone encounter. Patient has been identified by name and date of : Yes Reason for call: Virtual Visit, via telephone. Patient not able to connect via [employer] HISTORY OF PRESENT ILLNESS: Ms. Koenig is a 66 year old female with a PMH significant for CAD (s/p RODNEY to LAD and D1 08/25/2021), HLD,?HTN, PAD, COPD, current smoker. She was last seen by myself in office on 10/30/21. She described atypical chest pain but was started on imdur to trial for symptom relief. History: Stress testing was done d/t symptoms and need for cardiac clearance 08/14/2021. TID ratio was elevated so she was recommended a [facility] and ultimately had?PCI of the LAD/D1 bifurcation?on 08/25/2021. She needs cardiac clearance for R elbow repair after a fall. Ideally, she would continue DAPT at least 3 months without interruption.? Virtual Visit 12/04/2021: During today's telephone encounter, she is called in follow up from our last office visit to see how she is doing. She states her chest heaviness has improved but is still there at times. She is minimally active not going out very much. She admits she hasn't been able to make it to the pharmacy to strip picker her Imdur or inhalers which could be contributing to her shortness of breath and chest heaviness. Symptoms do not always correlate with exertion. She states she remains on ASA and plavix uninterrupted. She is awaiting a bone stimulator for her arm pain. Limited Review of Systems Review of Systems Constitutional: Negative for chills, diaphoresis, fever, malaise/fatigue and weight loss. HENT: Negative for congestion, ear pain, nosebleeds, sinus pain and sore throat. Eyes: Negative for pain. Respiratory: Positive for shortness of breath. Negative for cough and wheezing. Cardiovascular: Positive for chest pain. Negative for palpitations, orthopnea, claudication, leg swelling and PND. Gastrointestinal: Negative for abdominal pain, blood in stool, constipation, diarrhea, heartburn, melena, nausea and vomiting. Genitourinary: Negative for hematuria. Musculoskeletal: Positive for joint pain and myalgias. Negative for falls. Bone stimulator for arm pain Neurological: Negative for dizziness, tingling, sensory change, speech change, focal weakness, loss of consciousness, weakness and headaches. Endo/Heme/Allergies: Does not bruise/bleed easily. Psychiatric/Behavioral: Negative for depression, memory loss and suicidal ideas. The patient is not nervous/anxious and does not have insomnia. Objective PAST MEDICAL HISTORY Diagnosis Date - Acute pancreatitis 2010 [facility] - Alcohol use disorder [facility]/18/2016 [facility] - Anxiety 12/14/2015 - Bipolar affective disorder, currently active ([facility]) 01/18/2016 [facility] - Chronic bronchitis ([facility]) 07/26/2016 - Closed skull fracture ([facility]) 1994 [facility], [facility] - Coronary artery disease - DDD (degenerative disc disease), cervical - Endometriosis 2007 - Essential hypertension 12/14/2015 - GERD (gastroesophageal reflux disease) 03/13/2019 - History of colon polyps - History of gastric ulcer 12/14/2015 - HLD (hyperlipidemia) - Injury of left facial nerve 1994 - PAD (peripheral artery disease) ([facility]) 09/28/2019 - Recurrent major depression in partial remission ([facility]) 12/14/2015 - S/P drug eluting coronary stent placement 08/25/2021 LAD and Dg2 - Spinal stenosis PAST SURGICAL HISTORY Procedure Laterality Date - APPENDECTOMY 1979 - COLONOSCOP W/ OR W/O [facility] SPEC 2010 Colonoscopy - COLONOSCOPY 04/03/2017 diverticulosis- repeat 10 years - DECOMPRESS FACIAL NERVE,TOTAL Left 1989 [facility] - EGD 04/03/2017 Gastritis, duodenitis, GERD with esophagitis - ENDARTERECTOMY FEMORAL PROFUNDA Right 10/20/2019 patch angioplasty, Right iliac stent - PAST SURGICAL HISTORY OF 1994 cervical disc surgery x 3 - REMOVAL GALLBLADDER 1979 Cholecystectomy - REMOVAL OF TONSILS,<12 Y/O 1960 Tonsillectomy - STENT PLACEMENT 08/25/2021 RODNEY LAD AND Dg2 - TOTAL ABDOM HYSTERECTOMY 1980 Hysterectomy, MAURA - TOTAL HIP REPLACEMENT Right 03/25/2019 Hip replacement, total - Right FAMILY HISTORY Problem Relation Age of Onset - Cancer Mother 50 lung cancer - Hypertension Mother - Cancer Father 50 lung cancer - Cancer Sister 61 lung cancer Social History Tobacco Use - Smoking status: Current Every Day Smoker Packs/day: 1.50 Years: 50.00 Pack years: 75.00 Types: Cigarettes - Smokeless tobacco: Ne (more content not included)...[facility] 10-10-2021 NoteHNO ID: [id number] Author: RT Hiral(R) Service: Radiology Author Type: Technologist Type: Progress Notes Filed: 10/10/2021 11:15 AM Note Text: Radiology Service Progress Note PATIENT NAME: Vince Koenig DATE OF SERVICE: October 10, 2021 TIME: 11:15 AM PATIENT IDENTITY VERIFICATION COMPLETED USING TWO (2) IDENTIFIERS: Name and Date of confirmed by patient verbally. FALL SCREENING: Has the patient had 2 falls in the last year or 1 fall with injury or currently using an Ambulatory Assistive Device (Walker, Cane, Wheelchair, Crutches, etc.)? No PATIENT GENDER DATA: Female. status: : No status: N/A PATIENT RELEVANT IMPLANT DATA REVIEWED: Not Applicable RADIOLOGY DEPARTMENT: General X-ray: Exam(s) Completed: Upper Extremity X-Ray(s): Elbow, right PERIPHERAL IV DATA: Not applicable SIGNED BY: IVELISSE BlackmanR) October 10, 2021 11:15 AMSt. Mary'S Medical [id number] NoteHNO ID: [id number] Author: Tracy Ramires APRN.FISH HATCHERY WORKER Service: ? Author Type: Nurse Practitioner Type: Progress Notes Filed: 09/28/2021 11:09 AM Note Text: Chief Complaint Patient presents with: Cardiology Follow Up : mixes hyperlipidemia History of Present Illness: Vince Koenig is a 66 year old female who presents for hospital follow up. She has a PMhx of CAD (s/p RODNEY to LAD and D1 08/25/2021), HLD, HTN, PAD, COPD, current smoker. She was last seen by myself on 06/12/2021 at our [place] office. Stress testing was done d/t symptoms and need for cardiac clearance. TID ratio was elevated so she was recommended a [facility] and ultimately had PCI of the LAD/D1 bifurcation on 08/25/2021. She states she has been feeling well. She feels less short of breath post PCI. She denies chest pain, chest pain with activity, palpitations, dizziness, syncope, orthopnea, LE swelling. She reports taking medications as prescribed. She continues to smoke. She needs cardiac clearance for R elbow repair after a fall. Ideally, she would continue DAPT at least 3 months without interruption. PAST MEDICAL HISTORY Diagnosis Date - Acute pancreatitis 2010 [facility] - Alcohol use disorder 01/18/2016 [facility] - Anxiety 12/14/2015 - Bipolar affective disorder, currently active ([facility]) 01/18/2016 [facility] - Chronic bronchitis ([facility]) 07/26/2016 - Closed skull fracture ([facility]) 1994 [facility] - Coronary artery disease - DDD (degenerative disc disease), cervical - Endometriosis 2007 - Essential hypertension 12/14/2015 - GERD (gastroesophageal reflux disease) 03/13/2019 - History of colon polyps - History of gastric ulcer 12/14/2015 - HLD (hyperlipidemia) - Injury of left facial nerve 1994 - PAD (peripheral artery disease) ([facility]) 09/28/2019 - Recurrent major depression in partial remission ([facility]) 12/14/2015 - S/P drug eluting coronary stent placement 08/25/2021 LAD and Dg2 - Spinal stenosis PAST SURGICAL HISTORY Procedure Laterality Date - APPENDECTOMY 1979 - [facility] Colonoscopy - COLONOSCOPY 04/03/2017 diverticulosis- repeat 10 years - DECOMPRESS FACIAL NERVE,TOTAL Left 1989 [facility] - EGD 04/03/2017 Gastritis, duodenitis, GERD with esophagitis - ENDARTERECTOMY FEMORAL PROFUNDA Right 10/20/2019 patch angioplasty, Right iliac stent - PAST SURGICAL HISTORY OF 1994 cervical disc surgery x 3 - REMOVAL GALLBLADDER 1979 Cholecystectomy - REMOVAL OF TONSILS,<12 Y/O 1960 Tonsillectomy - STENT PLACEMENT 08/25/2021 RODNEY LAD AND Dg2 - TOTAL ABDOM HYSTERECTOMY 1980 Hysterectomy, [facility]A - TOTAL HIP REPLACEMENT Right 03/25/2019 Hip replacement, total - Right FAMILY HISTORY Problem Relation Age of Onset - Cancer Mother 50 lung cancer - Hypertension Mother - Cancer Father 50 lung cancer - Cancer Sister 61 lung cancer Social History Tobacco Use - Smoking status: Current Every Day Smoker Packs/day: 1.50 Years: 50.00 Pack years: 75.00 Types: Cigarettes - Smokeless tobacco: Never Used - Tobacco comment: down to 1ppd 10/06/19 Vaping Use - Vaping Use: Never used Substance Use Topics - Alcohol use: Yes - Drug use: No ALLERGIES No Known Allergies Medications: Current Outpatient Medications Medication Sig Dispense Refill - venlafaxine ER (EFFEXOR XR) 150 mg 24 hr capsule Take 1 capsule by mouth once daily. 90 capsule 0 - lisinopril (ZESTRIL, PRINIVIL) 40 mg tablet Take 1 tablet by mouth once daily. 30 tablet 5 - amLODIPine (NORVASC) 10 mg tablet TAKE 1 TABLET BY MOUTH EVERY DAY 90 tablet 3 - traZODone (DESYREL) 100 mg tablet Take 2 tablets by mouth daily at bedtime. 60 tablet 5 - omeprazole (PRILOSEC) 40 mg capsule Take 1 capsule by mouth once daily. 30 capsule 5 - atorvastatin (LIPITOR) 40 mg tablet Take 1 tablet by mouth once daily. 30 tablet 5 - albuterol HFA (VENTOLIN HFA) 90 mcg/actuation inhaler Inhale 2 Puffs as instructed every 6 hours as needed for Wheezing/Shortness of Breath. 80 g 5 - aspirin 81 mg chewable tablet Take 1 tablet by mouth once daily. 90 tablet 3 - metoprolol tartrate, short acting, (LOPRESSOR) 25 mg tablet Take 1 tablet by mouth twice daily. 60 tablet 5 - clopidogrel (PLAVIX) 75 mg tablet Take 1 tablet by mouth once daily. 30 Each 3 - oxyCODONE-acetaminophen (PERCOCET) 5-325 mg tablet Take 1 tablet by mouth every 8 hours as needed. Patient has a fractured elbow and due to cardiac reasons cannot have surgery at this time, and will require greater than 30 MEDD to treat chronic pain (ICD-10 code G89.18). 15 tablet 0 - varenicline (CHANTIX STARTING MONTH BOX) 0.5 mg (11)- 1 mg (42) tablet Take 0.5 mg by mouth once daily on Days 1 through 3, THEN 0.5 mg twice daily on Days 4 through 7, THEN 1 mg twice daily on Day 8 and thereafter (Patient not taking: Reported on 06/12/2021 ) 53 tablet 0 - camron (more content not included)...[facility]10-04-2021 Note HNO ID: [id number] Author: MAISHA Alicea Service: Radiology Author Type: Clinical Monumental Stonemason Type: Progress Notes Filed: 08/14/2021 4:04 PM Note Text: RADIOLOGY SERVICE PROGRESS NOTE SERVICE DATE: 08/14/2021 SERVICE TIME: 4:03 PM PATIENT IDENTITY VERIFICATION COMPLETED USING TWO (2) STANDARD IDENTIFIERS: Name and Date of confirmed by patient verbally and Name and Date of confirmed by identification band FALL SCREENING: Has the patient had 2 falls in the last year or 1 fall with injury or currently using an Ambulatory Assistive Device (Walker, Cane, Wheelchair, Crutches, etc.)? No PATIENT GENDER DATA: .female : No ALLERGIES: Reviewed and unchanged MEDICATIONS REVIEWED: Not applicable PATIENT RELEVANT IMPLANT DATA REVIEWED: Not Applicable CREATININE: Creatinine Date Value Ref Range Status 01/27/2021 0.73 0.58 - 0.96 mg/dL Final 10/23/2019 0.72 0.58 - 0.96 mg/dL Final 10/22/2019 0.69 0.58 - 0.96 mg/dL Final eGFR-All Other Races Date Value Ref Range Status 01/27/2021 >60 . Final Comment: eGFR (Estimated GFR) Units of measure: mL/min/1.73 meters squared eGFR is derived from the reexpressed MDRD Study equation using the following parameters: serum creatinine, age, gender and race. The creatinine assay has been calibrated to be traceable to IDMS. An eGFR <60 mL/min/1.73m2 for >3 months is consistent with chronic kidney disease. Refer to KDOQI guidelines for clinical interpretation. In patients with unstable renal function, e.g. those with acute kidney injury, the eGFR may not accurately reflect actual GFR. eGFR- Date Value Ref Range Status 01/27/2021 >60 Final P.O.C.T. RESULTS: N/A August 14, [address] PERFORMED: No IV SITE: Ambulatory: A peripheral IV was started in the Left forearm with a Angio cath: 22 gauge. POST EXAM PIV STATUS: Discontinued PROCEDURE TYPE: NM Stress: 12.6mCi [id number] was administered IV for Rest Imaging at 13:45 by MAISHA Alicea. 30.5 mCi [id number] was administered IV for Stress Imaging at 15:40 by MAISHA Alicea. PATIENT DISCHARGED TO: Ambulatory patient, left [place] department area. A Diagnostic radioactive procedure has taken place, with no further precautions necessary other than routine body substance precautions. More information regarding radiation safety can be found using this link: [email or web address] SIGNATURE: MAISHA Alicea PATIENT NAME: Vince Koenig DATE: August 14, 2021 TIME: 4:03 PM [id number] History of Past illness Narrative Problem Noted Date Resolved Date Asthma 07/07/2020 07/07/2020 Hypomagnesemia 10/22/2019 10/23/2019 Last Assessment & Plan: Replete mag today Preop cardiovascular exam 09/28/2019 10/06/2019 Precordial pain, short lived, 3-5 minutes, nonexertional, no 09/28/2019 07/07/2020 evidence of stress-induced ischemia on dobutamine echo in [facility] 2018. Last Assessment & Plan: Assessment: Cardiac clearance obtained f abdiel Roth 09/2019. Stress Echo-CONCLUSIONS: - Exam indication: CP - ECG uninterpreta ble OR unable to exercise - The dobutamine stress echo was negativ e for ischemia at 89 % of MPHR. - The left ventricle is normal in size. Left ventricular systolic function is mildly decreased. EF = 52 5% (2D 4-ch.) Normal left ventricular diastolic function. -There appears to be a redundant chord m id LV. - The patient has not had a prior [facility] ech ocardiographic exam for comparison. History of total right hip arthroplasty 03/25/2019 07/07/2020 Primary osteoarthritis of right hip 03/13/201909/12 Hyperkalemia 07/27/2016 11/27/2018 Polycythemia 07/27/2016 11/27/2018 Overview: recheck Anxiety 12/14/2015 01/06/2021 documented as of this encounter (statuses as of 03/01/2022)[facility] History of Past illness Narrative Problem Noted Date Resolved Date Asthma 07/07/2020 07/07/2020 Hypomagnesemia 10/22/2019 10/23/2019 Last Assessment & Plan: Replete mag today Preop cardiovascular exam 09/28/2019 10/06/2019 Precordial pain, short lived, 3-5 minutes, nonexertional, no 09/28/2019 07/07/2020 evidence of stress-induced ischemia on dobutamine echo in [facility] 2018. Last Assessment & Plan: Assessment: Cardiac clearance obtained f abdiel Roth 09/2019. Stress Echo-CONCLUSIONS: - Exam indication: CP - ECG uninterpreta ble OR unable to exercise - The dobutamine stress echo was negativ e for ischemia at 89 % of MPHR. - The left ventricle is normal in size. Left ventricular systolic function is mildly decreased. EF = 52 5% (2D 4-ch.) Normal left ventricular diastolic function. -There appears to be a redundant chord m id LV. - The patient has not had a prior [facility] ocardiographic exam for comparison. History of total right hip arthroplasty 03/25/2019 07/07/2020 Primary osteoarthritis of right hip 03/13/201909/12 Hyperkalemia 07/27/2016 11/27/2018 Polycythemia 07/27/2016 11/27/2018 Overview: recheck Anxiety 12/14/2015 01/06/2021 documented as of this encounter (statuses as of 03/13/2022)[facility] History of Past illness Narrative Problem Noted Date Resolved Date Asthma 07/07/2020 07/07/2020 Hypomagnesemia 10/22/2019 10/23/2019 Last Assessment & Plan: Replete mag today Preop cardiovascular exam 09/28/2019 10/06/2019 Precordial pain, short lived, 3-5 minutes, nonexertional, no 09/28/2019 07/07/2020 evidence of stress-induced ischemia on dobutamine echo in [facility] 2018. Last Assessment & Plan: Assessment: Cardiac clearance obtained f abdiel Roth 09/2019. Stress Echo-CONCLUSIONS: - Exam indication: CP - ECG uninterpreta ble OR unable to exercise - The dobutamine stress echo was negativ e for ischemia at 89 % of MPHR. - The left ventricle is normal in size. Left ventricular systolic function is mildly decreased. EF = 52 5% (2D 4-ch.) Normal left ventricular diastolic function. -There appears to be a redundant chord m id LV. - The patient has not had a prior [facility] ocardiographic exam for comparison. History of total right hip arthroplasty 03/25/2019 07/07/2020 Primary osteoarthritis of right hip 03/13/201909/12 Hyperkalemia 07/27/2016 11/27/2018 Polycythemia 07/27/2016 11/27/2018 Overview: recheck Anxiety 12/14/2015 01/06/2021 documented as of this encounter (statuses as of 03/23/2022)[facility] History of Past illness Narrative Problem Noted Date Resolved Date Asthma 07/07/2020 07/07/2020 Hypomagnesemia 10/22/2019 10/23/2019 Last Assessment & Plan: Replete mag today Preop cardiovascular exam 09/28/2019 10/06/2019 Precordial pain, short lived, 3-5 minutes, nonexertional, no 09/28/2019 07/07/2020 evidence of stress-induced ischemia on dobutamine echo in [facility] 2018. Last Assessment & Plan: Assessment: Cardiac clearance obtained f rom Dr. Roth 09/2019. Stress Echo-CONCLUSIONS: - Exam indication: CP - ECG uninterpreta ble OR unable to exercise - The dobutamine stress echo was negativ e for ischemia at 89 % of MPHR. - The left ventricle is normal in size. Left ventricular systolic function is mildly decreased. EF = 52 5% (2D 4-ch.) Normal left ventricular diastolic function. -There appears to be a redundant chord m id LV. - The patient has not had a prior [facility] ech ocardiographic exam for comparison. History of total right hip arthroplasty 03/25/2019 07/07/2020 Primary osteoarthritis of right hip 03/13/201909/12 Hyperkalemia 07/27/2016 11/27/2018 Polycythemia 07/27/2016 11/27/2018 Overview: recheck Anxiety 12/14/2015 01/06/2021 documented as of this encounter (statuses as of 04/03/2022)[facility] History of Past illness Narrative Problem Noted Date Resolved Date Asthma 07/07/2020 07/07/2020 Hypomagnesemia 10/22/2019 10/23/2019 Last Assessment & Plan: Replete mag today Preop cardiovascular exam 09/28/2019 10/06/2019 Precordial pain, short lived, 3-5 minutes, nonexertional, no 09/28/2019 07/07/2020 evidence of stress-induced ischemia on dobutamine echo in [facility] 2018. Last Assessment & Plan: Assessment: Cardiac clearance obtained f rom Dr. Roth 09/2019. Stress Echo-CONCLUSIONS: - Exam indication: CP - ECG uninterpreta ble OR unable to exercise - The dobutamine stress echo was negativ e for ischemia at 89 % of MPHR. - The left ventricle is normal in size. Left ventricular systolic function is mildly decreased. EF = 52 5% (2D 4-ch.) Normal left ventricular diastolic function. -There appears to be a redundant chord m id LV. - The patient has not had a prior [facility] ocardiographic exam for comparison. History of total right hip arthroplasty 03/25/2019 07/07/2020 Primary osteoarthritis of right hip 03/13/201909/12 Hyperkalemia 07/27/2016 11/27/2018 Polycythemia 07/27/2016 11/27/2018 Overview: recheck Anxiety 12/14/2015 01/06/2021 documented as of this encounter (statuses as of 05/03/2022)[facility]-07-[facility] History of Past illness Narrative Problem Noted Date Resolved Date Asthma 07/07/2020 07/07/2020 Hypomagnesemia 10/22/2019 10/23/2019 Last Assessment & Plan: Replete mag today Preop cardiovascular exam 09/28/2019 10/06/2019 Precordial pain, short lived, 3-5 minutes, nonexertional, no 09/28/2019 07/07/2020 evidence of stress-induced ischemia on dobutamine echo in [facility] 2018. Last Assessment & Plan: Assessment: Cardiac clearance obtained f abdiel Roth 09/2019. Stress Echo-CONCLUSIONS: - Exam indication: CP - ECG uninterpreta ble OR unable to exercise - The dobutamine stress echo was negativ e for ischemia at 89 % of MPHR. - The left ventricle is normal in size. Left ventricular systolic function is mildly decreased. EF = 52 5% (2D 4-ch.) Normal left ventricular diastolic function. -There appears to be a redundant chord m id LV. - The patient has not had a prior [facility] ocardiographic exam for comparison. History of total right hip arthroplasty 03/25/2019 07/07/2020 Primary osteoarthritis of right hip 03/13/201909/12 Hyperkalemia 07/27/2016 11/27/2018 Polycythemia 07/27/2016 11/27/2018 Overview: recheck Anxiety 12/14/2015 01/06/2021 documented as of this encounter (statuses as of 05/07/2022)[facility] 07[facility]07[facility] History of Past illness Narrative Problem Noted Date Resolved Date Asthma 07/07/2020 07/07/2020 Hypomagnesemia 10/22/2019 10/23/2019 Last Assessment & Plan: Replete mag today Preop cardiovascular exam 09/28/2019 10/06/2019 Precordial pain, short lived, 3-5 minutes, nonexertional, no 09/28/2019 07/07/2020 evidence of stress-induced ischemia on dobutamine echo in [facility] 2018. Last Assessment & Plan: Assessment: Cardiac clearance obtained f abdiel Roth 09/2019. Stress Echo-CONCLUSIONS: - Exam indication: CP - ECG uninterpreta ble OR unable to exercise - The dobutamine stress echo was negativ e for ischemia at 89 % of MPHR. - The left ventricle is normal in size. Left ventricular systolic function is mildly decreased. EF = 52 5% (2D 4-ch.) Normal left ventricular diastolic function. -There appears to be a redundant chord m id LV. - The patient has not had a prior [facility] ech ocardiographic exam for comparison. History of total right hip arthroplasty 03/25/2019 07/07/2020 Primary osteoarthritis of right hip 03/13/201909/12 Hyperkalemia 07/27/2016 11/27/2018 Polycythemia 07/27/2016 11/27/2018 Overview: recheck Anxiety 12/14/2015 01/06/2021 documented as of this encounter (statuses as of 05/11/2022)[facility] 07-07-[facility] History of Past illness Narrative Problem Noted Date Resolved Date Asthma 07/07/2020 07/07/2020 Hypomagnesemia 10/22/2019 10/23/2019 Last Assessment & Plan: Replete mag today Preop cardiovascular exam 09/28/2019 10/06/2019 Precordial pain, short lived, 3-5 minutes, nonexertional, no 09/28/2019 07/07/2020 evidence of stress-induced ischemia on dobutamine echo in [facility] 2018. Last Assessment & Plan: Assessment: Cardiac clearance obtained f rom Dr. Roth 09/2019. Stress Echo-CONCLUSIONS: - Exam indication: CP - ECG uninterpreta ble OR unable to exercise - The dobutamine stress echo was negativ e for ischemia at 89 % of MPHR. - The left ventricle is normal in size. Left ventricular systolic function is mildly decreased. EF = 52 5% (2D 4-ch.) Normal left ventricular diastolic function. -There appears to be a redundant chord m id LV. - The patient has not had a prior [facility] ocardiographic exam for comparison. History of total right hip arthroplasty 03/25/2019 07/07/2020 Primary osteoarthritis of right hip 03/13/201909/12 Hyperkalemia 07/27/2016 11/27/2018 Polycythemia 07/27/2016 11/27/2018 Overview: recheck Anxiety 12/14/2015 01/06/2021 documented as of this encounter (statuses as of 05/23/2022)[facility] 07-07-2020 History of Past illness Narrative Problem Noted Date Resolved Date Asthma 07/07/2020 07/07/2020 Hypomagnesemia 10/22/2019 10/23/2019 Last Assessment & Plan: Replete mag today Preop cardiovascular exam 09/28/2019 10/06/2019 Precordial pain, short lived, 3-5 minutes, nonexertional, no 09/28/2019 07/07/2020 evidence of stress-induced ischemia on dobutamine echo in [facility] 2018. Last Assessment & Plan: Assessment: Cardiac clearance obtained f rom Dr. Roth 09/2019. Stress Echo-CONCLUSIONS: - Exam indication: CP - ECG uninterpreta ble OR unable to exercise - The dobutamine stress echo was negativ e for ischemia at 89 % of MPHR. - The left ventricle is normal in size. Left ventricular systolic function is mildly decreased. EF = 52 5% (2D 4-ch.) Normal left ventricular diastolic function. -There appears to be a redundant chord m id LV. - The patient has not had a prior [facility] ocardiographic exam for comparison. History of total right hip arthroplasty 03/25/2019 07/07/2020 Primary osteoarthritis of right hip 03/13/201909/12 Hyperkalemia 07/27/2016 11/27/2018 Polycythemia 07/27/2016 11/27/2018 Overview: recheck Anxiety 12/14/2015 01/06/2021 documented as of this encounter (statuses as of 05/24/2022)[facility] 07-07-2020 History of Past illness Narrative Problem Noted Date Resolved Date Asthma 07/07/2020 07/07/2020 Hypomagnesemia 10/22/2019 10/23/2019 Last Assessment & Plan: Replete mag today Preop cardiovascular exam 09/28/2019 10/06/2019 Precordial pain, short lived, 3-5 minutes, nonexertional, no 09/28/2019 07/07/2020 evidence of stress-induced ischemia on dobutamine echo in [facility] 2018. Last Assessment & Plan: Assessment: Cardiac clearance obtained f rom Dr. Roth 09/2019. Stress Echo-CONCLUSIONS: - Exam indication: CP - ECG uninterpreta ble OR unable to exercise - The dobutamine stress echo was negativ e for ischemia at 89 % of MPHR. - The left ventricle is normal in size. Left ventricular systolic function is mildly decreased. EF = 52 5% (2D 4-ch.) Normal left ventricular diastolic function. -There appears to be a redundant chord m id LV. - The patient has not had a prior [facility] ocardiographic exam for comparison. History of total right hip arthroplasty 03/25/2019 07/07/2020 Primary osteoarthritis of right hip 03/13/201909/12 Hyperkalemia 07/27/2016 11/27/2018 Polycythemia 07/27/2016 11/27/2018 Overview: recheck Anxiety 12/14/2015 01/06/2021 documented as of this encounter (statuses as of 05/25/2022)[facility] 07-07-2020 History of Past illness Narrative Problem Noted Date Resolved Date Asthma 07/07/2020 07/07/2020 Hypomagnesemia 10/22/2019 10/23/2019 Last Assessment & Plan: Replete mag today Preop cardiovascular exam 09/28/2019 10/06/2019 Precordial pain, short lived, 3-5 minutes, nonexertional, no 09/28/2019 07/07/2020 evidence of stress-induced ischemia on dobutamine echo in [facility] 2018. Last Assessment & Plan: Assessment: Cardiac clearance obtained f rom Dr. Roth 09/2019. Stress Echo-CONCLUSIONS: - Exam indication: CP - ECG uninterpreta ble OR unable to exercise - The dobutamine stress echo was negativ e for ischemia at 89 % of MPHR. - The left ventricle is normal in size. Left ventricular systolic function is mildly decreased. EF = 52 5% (2D 4-ch.) Normal left ventricular diastolic function. -There appears to be a redundant chord m id LV. - The patient has not had a prior [facility] ocardiographic exam for comparison. History of total right hip arthroplasty 03/25/2019 07/07/2020 Primary osteoarthritis of right hip 03/13/201909/12 Hyperkalemia 07/27/2016 11/27/2018 Polycythemia 07/27/2016 11/27/2018 Overview: recheck Anxiety 12/14/2015 01/06/2021 documented as of this encounter (statuses as of 05/29/2022)[facility] 07-07-2020 History of Past illness Narrative Problem Noted Date Resolved Date Asthma 07/07/2020 07/07/2020 Hypomagnesemia 10/22/2019 10/23/2019 Last Assessment & Plan: Replete mag today Preop cardiovascular exam 09/28/2019 10/06/2019 Precordial pain, short lived, 3-5 minutes, nonexertional, no 09/28/2019 07/07/2020 evidence of stress-induced ischemia on dobutamine echo in [facility] 2019. Last Assessment & Plan: Assessment: Cardiac clearance obtained f rom Dr. Roth 09/2019. Stress Echo-CONCLUSIONS: - Exam indication: CP - ECG uninterpreta ble OR unable to exercise - The dobutamine stress echo was negativ e for ischemia at 89 % of MPHR. - The left ventricle is normal in size. Left ventricular systolic function is mildly decreased. EF = 52 5% (2D 4-ch.) Normal left ventricular diastolic function. -There appears to be a redundant chord m id LV. - The patient has not had a prior [facility] ocardiographic exam for comparison. History of total right hip arthroplasty 03/25/2019 07/07/2020 Primary osteoarthritis of right hip 03/13/201909/12 Hyperkalemia 07/27/2016 11/27/2018 Polycythemia 07/27/2016 11/27/2018 Overview: recheck Anxiety 12/14/2015 01/06/2021 documented as of this encounter (statuses as of 05/30/2022)[facility] 07-07-2020 History of Past illness Narrative Problem Noted Date Resolved Date Asthma 07/07/2020 07/07/2020 Hypomagnesemia 10/22/2019 10/23/2019 Last Assessment & Plan: Replete mag today Preop cardiovascular exam 09/28/2019 10/06/2019 Precordial pain, short lived, 3-5 minutes, nonexertional, no 09/28/2019 07/07/2020 evidence of stress-induced ischemia on dobutamine echo in [facility] 2018. Last Assessment & Plan: Assessment: Cardiac clearance obtained f rom Dr. Roth 09/2019. Stress Echo-CONCLUSIONS: - Exam indication: CP - ECG uninterpreta ble OR unable to exercise - The dobutamine stress echo was negativ e for ischemia at 89 % of MPHR. - The left ventricle is normal in size. Left ventricular systolic function is mildly decreased. EF = 52 5% (2D 4-ch.) Normal left ventricular diastolic function. -There appears to be a redundant chord m id LV. - The patient has not had a prior [facility] ocardiographic exam for comparison. History of total right hip arthroplasty 03/25/2019 07/07/2020 Primary osteoarthritis of right hip 03/13/201909/12 Hyperkalemia 07/27/2016 11/27/2018 Polycythemia 07/27/2016 11/27/2018 Overview: lyubov Anxiety 12/14/2015 01/06/2021 documented as of this encounter (statuses as of 05/30/2022)[facility] 07-07-2020 History of Past illness Narrative Problem Noted Date Resolved Date Asthma 07/07/2020 07/07/2020 Hypomagnesemia 10/22/2019 10/23/2019 Last Assessment & Plan: Replete mag today Preop cardiovascular exam 09/28/2019 10/06/2019 Precordial pain, short lived, 3-5 minutes, nonexertional, no 09/28/2019 07/07/2020 evidence of stress-induced ischemia on dobutamine echo in [facility] 2018. Last Assessment & Plan: Assessment: Cardiac clearance obtained f abdiel Roth 09/2019. Stress Echo-CONCLUSIONS: - Exam indication: CP - ECG uninterpreta ble OR unable to exercise - The dobutamine stress echo was negativ e for ischemia at 89 % of MPHR. - The left ventricle is normal in size. Left ventricular systolic function is mildly decreased. EF = 52 5% (2D 4-ch.) Normal left ventricular diastolic function. -There appears to be a redundant chord m id LV. - The patient has not had a prior [facility] ocardiographic exam for comparison. History of total right hip arthroplasty 03/25/2019 07/07/2020 Primary osteoarthritis of right hip 03/13/201909/12 Hyperkalemia 07/27/2016 11/27/2018 Polycythemia 07/27/2016 11/27/2018 Overview: deepakeck Anxiety 12/14/2015 01/06/2021 documented as of this encounter (statuses as of 06/01/2022)[facility] 07-07-2020 History of Past illness Narrative Problem Noted Date Resolved Date Asthma 07/07/2020 07/07/2020 Hypomagnesemia 10/22/2019 10/23/2019 Last Assessment & Plan: Replete mag today Preop cardiovascular exam 09/28/2019 10/06/2019 Precordial pain, short lived, 3-5 minutes, nonexertional, no 09/28/2019 07/07/2020 evidence of stress-induced ischemia on dobutamine echo in [facility] 2018. Last Assessment & Plan: Assessment: Cardiac clearance obtained f rom Dr. Roth 09/2019. Stress Echo-CONCLUSIONS: - Exam indication: CP - ECG uninterpreta ble OR unable to exercise - The dobutamine stress echo was negativ e for ischemia at 89 % of MPHR. - The left ventricle is normal in size. Left ventricular systolic function is mildly decreased. EF = 52 5% (2D 4-ch.) Normal left ventricular diastolic function. -There appears to be a redundant chord m id LV. - The patient has not had a prior [facility] ocardiographic exam for comparison. History of total right hip arthroplasty 03/25/2019 07/07/2020 Primary osteoarthritis of right hip 03/13/201909/12 Hyperkalemia 07/27/2016 11/27/2018 Polycythemia 07/27/2016 11/27/2018 Overview: recheck Anxiety 12/14/2015 01/06/2021 documented as of this encounter (statuses as of 06/04/2022)[facility] 07-07-2020 History of Past illness Narrative Problem Noted Date Resolved Date Asthma 07/07/2020 07/07/2020 Hypomagnesemia 10/22/2019 10/23/2019 Last Assessment & Plan: Replete mag today Preop cardiovascular exam 09/28/2019 10/06/2019 Precordial pain, short lived, 3-5 minutes, nonexertional, no 09/28/2019 07/07/2020 evidence of stress-induced ischemia on dobutamine echo in [facility] 2018. Last Assessment & Plan: Assessment: Cardiac clearance obtained f rom Dr. Roth 09/2019. Stress Echo-CONCLUSIONS: - Exam indication: CP - ECG uninterpreta ble OR unable to exercise - The dobutamine stress echo was negativ e for ischemia at 89 % of MPHR. - The left ventricle is normal in size. Left ventricular systolic function is mildly decreased. EF = 52 5% (2D 4-ch.) Normal left ventricular diastolic function. -There appears to be a redundant chord m id LV. - The patient has not had a prior [facility] ocardiographic exam for comparison. History of total right hip arthroplasty 03/25/2019 07/07/2020 Primary osteoarthritis of right hip 03/13/201909/12 Hyperkalemia 07/27/2016 11/27/2018 Polycythemia 07/27/2016 11/27/2018 Overview: recheck Anxiety 12/14/2015 01/06/2021 documented as of this encounter (statuses as of 06/06/2022)[facility] 07-07-2020 History of Past illness Narrative Problem Noted Date Resolved Date Asthma 07/07/2020 07/07/2020 Hypomagnesemia 10/22/2019 10/23/2019 Last Assessment & Plan: Replete mag today Preop cardiovascular exam 09/28/2019 10/06/2019 Precordial pain, short lived, 3-5 minutes, nonexertional, no 09/28/2019 07/07/2020 evidence of stress-induced ischemia on dobutamine echo in [facility] 2018. Last Assessment & Plan: Assessment: Cardiac clearance obtained f abdiel Roth 09/2019. Stress Echo-CONCLUSIONS: - Exam indication: CP - ECG uninterpreta ble OR unable to exercise - The dobutamine stress echo was negativ e for ischemia at 89 % of MPHR. - The left ventricle is normal in size. Left ventricular systolic function is mildly decreased. EF = 52 5% (2D 4-ch.) Normal left ventricular diastolic function. -There appears to be a redundant chord m id LV. - The patient has not had a prior [facility] ocardiographic exam for comparison. History of total right hip arthroplasty 03/25/2019 07/07/2020 Primary osteoarthritis of right hip 03/13/201909/12 Hyperkalemia 07/27/2016 11/27/2018 Polycythemia 07/27/2016 11/27/2018 Overview: recheck Anxiety 12/14/2015 01/06/2021 documented as of this encounter (statuses as of 06/06/2022)[facility] 07-07-2020 History of Past illness Narrative Problem Noted Date Resolved Date Asthma 07/07/2020 07/07/2020 Hypomagnesemia 10/22/2019 10/23/2019 Last Assessment & Plan: Replete mag today Preop cardiovascular exam 09/28/2019 10/06/2019 Precordial pain, short lived, 3-5 minutes, nonexertional, no 09/28/2019 07/07/2020 evidence of stress-induced ischemia on dobutamine echo in [facility] 2018. Last Assessment & Plan: Assessment: Cardiac clearance obtained f abdiel Roth 09/2019. Stress Echo-CONCLUSIONS: - Exam indication: CP - ECG uninterpreta ble OR unable to exercise - The dobutamine stress echo was negativ e for ischemia at 89 % of MPHR. - The left ventricle is normal in size. Left ventricular systolic function is mildly decreased. EF = 52 5% (2D 4-ch.) Normal left ventricular diastolic function. -There appears to be a redundant chord m id LV. - The patient has not had a prior [facility] ocardiographic exam for comparison. History of total right hip arthroplasty 03/25/2019 07/07/2020 Primary osteoarthritis of right hip 03/13/201909/12 Hyperkalemia 07/27/2016 11/27/2018 Polycythemia 07/27/2016 11/27/2018 Overview: recheck Anxiety 12/14/2015 01/06/2021 documented as of this encounter (statuses as of 06/15/2022)[facility] 07-07-2020 History of Past illness Narrative Problem Noted Date Resolved Date Asthma 07/07/2020 07/07/2020 Hypomagnesemia 10/22/2019 10/23/2019 Last Assessment & Plan:Formatting of thi s note might be different from the original. Replete mag today Preop cardiovascular exam 09/28/2019 10/06/2019 Precordial pain, short lived, 3-5 minutes, nonexertional, no 09/28/2019 07/07/2020 evidence of stress-induced ischemia on dobutamine echo in [facility] 2018. Last Assessment & Plan:Formatting of jaswinder s note might be different from the original. Assessment: Cardiac clearance obtained f rom Dr. Roth 09/2019. Stress Echo-CONCLUSIONS: - Exam indication: CP - ECG uninterpreta ble OR unable to exercise - The dobutamine stress echo was negativ e for ischemia at 89 % of MPHR. - The left ventricle is normal in size. Left ventricular systolic function is mildly decreased. EF = 52 5% (2D 4-ch.) Normal left ventricular diastolic function. -There appears to be a redundant chord m id LV. - The patient has not had a prior [facility] ocardiographic exam for comparison. History of total right hip arthroplasty 03/25/2019 07/07/2020 Primary osteoarthritis of right hip 03/13/201909/12 Hyperkalemia 07/27/2016 11/27/2018 Polycythemia 07/27/2016 11/27/2018 Overview:Formatting of this note might b e different from the original. recheck Anxiety 12/14/2015 01/06/2021 documented as of this encounter (statuses as of 07/06/2022)[facility] 07-07-2020 History of Past illness Narrative Problem Noted Date Resolved Date Asthma 07/07/2020 07/07/2020 Hypomagnesemia 10/22/2019 10/23/2019 Last Assessment & Plan:Formatting of jaswinder s note might be different from the original. Replete mag today Preop cardiovascular exam 09/28/2019 10/06/2019 Precordial pain, short lived, 3-5 minutes, nonexertional, no 09/28/2019 07/07/2020 evidence of stress-induced ischemia on dobutamine echo in [facility] 2018. Last Assessment & Plan:Formatting of jaswinder s note might be different from the original. Assessment: Cardiac clearance obtained f rom Dr. Roth 09/2019. Stress Echo-CONCLUSIONS: - Exam indication: CP - ECG uninterpreta ble OR unable to exercise - The dobutamine stress echo was negativ e for ischemia at 89 % of MPHR. - The left ventricle is normal in size. Left ventricular systolic function is mildly decreased. EF = 52 5% (2D 4-ch.) Normal left ventricular diastolic function. -There appears to be a redundant chord m id LV. - The patient has not had a prior [facility] ocardiographic exam for comparison. History of total right hip arthroplasty 03/25/2019 07/07/2020 Primary osteoarthritis of right hip 03/13/201909/12 Hyperkalemia 07/27/2016 11/27/2018 Polycythemia 07/27/2016 11/27/2018 Overview:Formatting of this note might b e different from the original. recheck Anxiety 12/14/2015 01/06/2021 documented as of this encounter (statuses as of 07/09/2022)[facility] 07-07-2020 History of Past illness Narrative Problem Noted Date Resolved Date Asthma 07/07/2020 07/07/2020 Hypomagnesemia 10/22/2019 10/23/2019 Last Assessment & Plan:Formatting of jaswinder walden note might be different from the original. Replete mag today Preop cardiovascular exam 09/28/2019 10/06/2019 Precordial pain, short lived, 3-5 minutes, nonexertional, no 09/28/2019 07/07/2020 evidence of stress-induced ischemia on dobutamine echo in [facility] 2018. Last Assessment & Plan:Formatting of jaswinder win note might be different from the original. Assessment: Cardiac clearance obtained f abdiel Roth 09/2019. Stress Echo-CONCLUSIONS: - Exam indication: CP - ECG uninterpreta ble OR unable to exercise - The dobutamine stress echo was negativ e for ischemia at 89 % of MPHR. - The left ventricle is normal in size. Left ventricular systolic function is mildly decreased. EF = 52 5% (2D 4-ch.) Normal left ventricular diastolic function. -There appears to be a redundant chord m id LV. - The patient has not had a prior [facility] ocardiographic exam for comparison. History of total right hip arthroplasty 03/25/2019 07/07/2020 Primary osteoarthritis of right hip 03/13/201909/12 Hyperkalemia 07/27/2016 11/27/2018 Polycythemia 07/27/2016 11/27/2018 Overview:Formatting of this note might b e different from the original. recheck Anxiety 12/14/2015 01/06/2021 documented as of this encounter (statuses as of 07/18/2022)[facility] 07-07-2020 History of Past illness Narrative Problem Noted Date Resolved Date Asthma 07/07/2020 07/07/2020 Hypomagnesemia 10/22/2019 10/23/2019 Last Assessment & Plan:Formatting of jaswinder s note might be different from the original. Replete mag today Preop cardiovascular exam 09/28/2019 10/06/2019 Precordial pain, short lived, 3-5 minutes, nonexertional, no 09/28/2019 07/07/2020 evidence of stress-induced ischemia on dobutamine echo in [facility] 2018. Last Assessment & Plan:Formatting of jaswinder s note might be different from the original. Assessment: Cardiac clearance obtained f abdiel Roth 09/2019. Stress Echo-CONCLUSIONS: - Exam indication: CP - ECG uninterpreta ble OR unable to exercise - The dobutamine stress echo was negativ e for ischemia at 89 % of MPHR. - The left ventricle is normal in size. Left ventricular systolic function is mildly decreased. EF = 52 5% (2D 4-ch.) Normal left ventricular diastolic function. -There appears to be a redundant chord m id LV. - The patient has not had a prior [facility] ocardiographic exam for comparison. History of total right hip arthroplasty 03/25/2019 07/07/2020 Primary osteoarthritis of right hip 03/13/201909/12 Hyperkalemia 07/27/2016 11/27/2018 Polycythemia 07/27/2016 11/27/2018 Overview:Formatting of this note might b e different from the original. recheck Anxiety 12/14/2015 01/06/2021 documented as of this encounter (statuses as of 07/24/2022)[facility] 07-07-2020 History of Past illness Narrative Problem Noted Date Resolved Date Asthma 07/07/2020 07/07/2020 Hypomagnesemia 10/22/2019 10/23/2019 Last Assessment & Plan:Formatting of jaswinder s note might be different from the original. Replete mag today Preop cardiovascular exam 09/28/2019 10/06/2019 Precordial pain, short lived, 3-5 minutes, nonexertional, no 09/28/2019 07/07/2020 evidence of stress-induced ischemia on dobutamine echo in [facility] 2018. Last Assessment & Plan:Formatting of jaswinder walden note might be different from the original. Assessment: Cardiac clearance obtained f rom Dr. Roth 09/2019. Stress Echo-CONCLUSIONS: - Exam indication: CP - ECG uninterpreta ble OR unable to exercise - The dobutamine stress echo was negativ e for ischemia at 89 % of MPHR. - The left ventricle is normal in size. Left ventricular systolic function is mildly decreased. EF = 52 5% (2D 4-ch.) Normal left ventricular diastolic function. -There appears to be a redundant chord m id LV. - The patient has not had a prior [facility] ocardiographic exam for comparison. History of total right hip arthroplasty 03/25/2019 07/07/2020 Primary osteoarthritis of right hip 03/13/201909/12 Hyperkalemia 07/27/2016 11/27/2018 Polycythemia 07/27/2016 11/27/2018 Overview:Formatting of this note might b e different from the original. recheck Anxiety 12/14/2015 01/06/2021 documented as of this encounter (statuses as of 07/31/2022)[facility] 07-07-2020 History of Past illness Narrative Problem Noted Date Resolved Date Asthma 07/07/2020 07/07/2020 Hypomagnesemia 10/22/2019 10/23/2019 Last Assessment & Plan:Formatting of jaswinder walden note might be different from the original. Replete mag today Preop cardiovascular exam 09/28/2019 10/06/2019 Precordial pain, short lived, 3-5 minutes, nonexertional, no 09/28/2019 07/07/2020 evidence of stress-induced ischemia on dobutamine echo in [facility] 2018. Last Assessment & Plan:Formatting of jaswinder walden note might be different from the original. Assessment: Cardiac clearance obtained f rom Dr. Roth 09/2019. Stress Echo-CONCLUSIONS: - Exam indication: CP - ECG uninterpreta ble OR unable to exercise - The dobutamine stress echo was negativ e for ischemia at 89 % of MPHR. - The left ventricle is normal in size. Left ventricular systolic function is mildly decreased. EF = 52 5% (2D 4-ch.) Normal left ventricular diastolic function. -There appears to be a redundant chord m id LV. - The patient has not had a prior [facility] ocardiographic exam for comparison. History of total right hip arthroplasty 03/25/2019 07/07/2020 Primary osteoarthritis of right hip 03/13/201909/12 Hyperkalemia 07/27/2016 11/27/2018 Polycythemia 07/27/2016 11/27/2018 Overview:Formatting of this note might b e different from the original. recheck Anxiety 12/14/2015 01/06/2021 documented as of this encounter (statuses as of 08/10/2022)[facility] 07-07-2020 History of Past illness Narrative Problem Noted Date Resolved Date Asthma 07/07/2020 07/07/2020 Hypomagnesemia 10/22/2019 10/23/2019 Last Assessment & Plan:Formatting of jaswinder walden note might be different from the original. Replete mag today Preop cardiovascular exam 09/28/2019 10/06/2019 Precordial pain, short lived, 3-5 minutes, nonexertional, no 09/28/2019 07/07/2020 evidence of stress-induced ischemia on dobutamine echo in [facility] 2018. Last Assessment & Plan:Formatting of jaswinder walden note might be different from the original. Assessment: Cardiac clearance obtained f abdiel Roth 09/2019. Stress Echo-CONCLUSIONS: - Exam indication: CP - ECG uninterpreta ble OR unable to exercise - The dobutamine stress echo was negativ e for ischemia at 89 % of MPHR. - The left ventricle is normal in size. Left ventricular systolic function is mildly decreased. EF = 52 5% (2D 4-ch.) Normal left ventricular diastolic function. -There appears to be a redundant chord m id LV. - The patient has not had a prior [facility] ocardiographic exam for comparison. History of total right hip arthroplasty 03/25/2019 07/07/2020 Primary osteoarthritis of right hip 03/13/201909/12 Hyperkalemia 07/27/2016 11/27/2018 Polycythemia 07/27/2016 11/27/2018 Overview:Formatting of this note might b e different from the original. recheck Anxiety 12/14/2015 01/06/2021 documented as of this encounter (statuses as of 08/16/2022)[facility] 07-07-2020 History of Past illness Narrative Problem Noted Date Resolved Date Asthma 07/07/2020 07/07/2020 Hypomagnesemia 10/22/2019 10/23/2019 Last Assessment & Plan:Formatting of jaswinder s note might be different from the original. Replete mag today Preop cardiovascular exam 09/28/2019 10/06/2019 Precordial pain, short lived, 3-5 minutes, nonexertional, no 09/28/2019 07/07/2020 evidence of stress-induced ischemia on dobutamine echo in [facility] 2018. Last Assessment & Plan:Formatting of jaswinder s note might be different from the original. Assessment: Cardiac clearance obtained f rom Dr. Roth 09/2019. Stress Echo-CONCLUSIONS: - Exam indication: CP - ECG uninterpreta ble OR unable to exercise - The dobutamine stress echo was negativ e for ischemia at 89 % of MPHR. - The left ventricle is normal in size. Left ventricular systolic function is mildly decreased. EF = 52 5% (2D 4-ch.) Normal left ventricular diastolic function. -There appears to be a redundant chord m id LV. - The patient has not had a prior CC ech ocardiographic exam for comparison. History of total right hip arthroplasty 03/25/2019 07/07/2020 Primary osteoarthritis of right hip 03/13/201909/12 Hyperkalemia 07/27/2016 11/27/2018 Polycythemia 07/27/2016 11/27/2018 Overview:Formatting of this note might b e different from the original. recheck Anxiety 12/14/2015 01/06/2021 documented as of this encounter (statuses as of 08/31/2022)[facility] 07-07-2020 History of Past illness Narrative Problem Noted Date Resolved Date Asthma 07/07/2020 07/07/2020 Hypomagnesemia 10/22/2019 10/23/2019 Last Assessment & Plan:Formatting of jaswinder s note might be different from the original. Replete mag today Preop cardiovascular exam 09/28/2019 10/06/2019 Precordial pain, short lived, 3-5 minutes, nonexertional, no 09/28/2019 07/07/2020 evidence of stress-induced ischemia on dobutamine echo in [facility] 2018. Last Assessment & Plan:Formatting of jaswinder s note might be different from the original. Assessment: Cardiac clearance obtained f rom Dr. Roth 09/2019. Stress Echo-CONCLUSIONS: - Exam indication: CP - ECG uninterpreta ble OR unable to exercise - The dobutamine stress echo was negativ e for ischemia at 89 % of MPHR. - The left ventricle is normal in size. Left ventricular systolic function is mildly decreased. EF = 52 5% (2D 4-ch.) Normal left ventricular diastolic function. -There appears to be a redundant chord m id LV. - The patient has not had a prior CC ech ocardiographic exam for comparison. History of total right hip arthroplasty 03/25/2019 07/07/2020 Primary osteoarthritis of right hip 03/13/201909/12 Hyperkalemia 07/27/2016 11/27/2018 Polycythemia 07/27/2016 11/27/2018 Overview:Formatting of this note might b e different from the original. recheck Anxiety 12/14/2015 01/06/2021 documented as of this encounter (statuses as of 09/05/2022)[facility] 07-07-2020 History of Past illness Narrative Problem Noted Date Resolved Date Asthma 07/07/2020 07/07/2020 Hypomagnesemia 10/22/2019 10/23/2019 Last Assessment & Plan:Formatting of jaswnider walden note might be different from the original. Replete mag today Preop cardiovascular exam 09/28/2019 10/06/2019 Precordial pain, short lived, 3-5 minutes, nonexertional, no 09/28/2019 07/07/2020 evidence of stress-induced ischemia on dobutamine echo in [facility] 2018. Last Assessment & Plan:Formatting of jaswinder walden note might be different from the original. Assessment: Cardiac clearance obtained f abdiel Roth 09/2019. Stress Echo-CONCLUSIONS: - Exam indication: CP - ECG uninterpreta ble OR unable to exercise - The dobutamine stress echo was negativ e for ischemia at 89 % of MPHR. - The left ventricle is normal in size. Left ventricular systolic function is mildly decreased. EF = 52 5% (2D 4-ch.) Normal left ventricular diastolic function. -There appears to be a redundant chord m id LV. - The patient has not had a prior [facility] ocardiographic exam for comparison. History of total right hip arthroplasty 03/25/2019 07/07/2020 Primary osteoarthritis of right hip 03/13/201909/12 Hyperkalemia 07/27/2016 11/27/2018 Polycythemia 07/27/2016 11/27/2018 Overview:Formatting of this note might b e different from the original. lyubov Anxiety 12/14/2015 01/06/2021 documented as of this encounter (statuses as of 09/06/2022)[facility] 07-07-2020 History of Past illness Narrative Problem Noted Date Resolved Date Asthma 07/07/2020 07/07/2020 Hypomagnesemia 10/22/2019 10/23/2019 Last Assessment & Plan:Formatting of jaswinder walden note might be different from the original. Replete mag today Preop cardiovascular exam 09/28/2019 10/06/2019 Precordial pain, short lived, 3-5 minutes, nonexertional, no 09/28/2019 07/07/2020 evidence of stress-induced ischemia on dobutamine echo in [facility] 2018. Last Assessment & Plan:Formatting of jaswinder walden note might be different from the original. Assessment: Cardiac clearance obtained f rom Dr. Roth 09/2019. Stress Echo-CONCLUSIONS: - Exam indication: CP - ECG uninterpreta ble OR unable to exercise - The dobutamine stress echo was negativ e for ischemia at 89 % of MPHR. - The left ventricle is normal in size. Left ventricular systolic function is mildly decreased. EF = 52 5% (2D 4-ch.) Normal left ventricular diastolic function. -There appears to be a redundant chord m id LV. - The patient has not had a prior [facility] ech ocardiographic exam for comparison. History of total right hip arthroplasty 03/25/2019 07/07/2020 Primary osteoarthritis of right hip 03/13/201909/12 Hyperkalemia 07/27/2016 11/27/2018 Polycythemia 07/27/2016 11/27/2018 Overview:Formatting of this note might b e different from the original. [place] Anxiety 12/14/2015 01/06/2021 documented as of this encounter (statuses as of 09/24/2022)[facility] 07-07-2020 History of Past illness Narrative Problem Noted Date Resolved Date Asthma 07/07/2020 07/07/2020 Hypomagnesemia 10/22/2019 10/23/2019 Last Assessment & Plan:Formatting of jaswinder s note might be different from the original. Replete mag today Preop cardiovascular exam 09/28/2019 10/06/2019 Precordial pain, short lived, 3-5 minutes, nonexertional, no 09/28/2019 07/07/2020 evidence of stress-induced ischemia on dobutamine echo in [facility] 2018. Last Assessment & Plan:Formatting of jaswinder s note might be different from the original. Assessment: Cardiac clearance obtained f rom Dr. Roth 09/2019. Stress Echo-CONCLUSIONS: - Exam indication: CP - ECG uninterpreta ble OR unable to exercise - The dobutamine stress echo was negativ e for ischemia at 89 % of MPHR. - The left ventricle is normal in size. Left ventricular systolic function is mildly decreased. EF = 52 5% (2D 4-ch.) Normal left ventricular diastolic function. -There appears to be a redundant chord m id LV. - The patient has not had a prior CC ech ocardiographic exam for comparison. History of total right hip arthroplasty 03/25/2019 07/07/2020 Primary osteoarthritis of right hip 03/13/201909/12 Hyperkalemia 07/27/2016 11/27/2018 Polycythemia 07/27/2016 11/27/2018 Overview:Formatting of this note might b e different from the original. recheck Anxiety 12/14/2015 01/06/2021 documented as of this encounter (statuses as of 09/30/2022)[facility] 07-07-2020 History of Past illness Narrative Problem Noted Date Resolved Date Asthma 07/07/2020 07/07/2020 Hypomagnesemia 10/22/2019 10/23/2019 Last Assessment & Plan:Formatting of jaswinder s note might be different from the original. Replete mag today Preop cardiovascular exam 09/28/2019 10/06/2019 Precordial pain, short lived, 3-5 minutes, nonexertional, no 09/28/2019 07/07/2020 evidence of stress-induced ischemia on dobutamine echo in [facility] 2018. Last Assessment & Plan:Formatting of jaswinder s note might be different from the original. Assessment: Cardiac clearance obtained f rom Dr. Roth 09/2019. Stress Echo-CONCLUSIONS: - Exam indication: CP - ECG uninterpreta ble OR unable to exercise - The dobutamine stress echo was negativ e for ischemia at 89 % of MPHR. - The left ventricle is normal in size. Left ventricular systolic function is mildly decreased. EF = 52 5% (2D 4-ch.) Normal left ventricular diastolic function. -There appears to be a redundant chord m id LV. - The patient has not had a prior [facility] ech ocardiographic exam for comparison. History of total right hip arthroplasty 03/25/2019 07/07/2020 Primary osteoarthritis of right hip 03/13/201909/12 Hyperkalemia 07/27/2016 11/27/2018 Polycythemia 07/27/2016 11/27/2018 Overview:Formatting of this note might b e different from the original. recheck Anxiety 12/14/2015 01/06/2021 documented as of this encounter (statuses as of 10/02/2022)[facility] 07-07-2020 History of Past illness Narrative Problem Noted Date Resolved Date Asthma 07/07/2020 07/07/2020 Hypomagnesemia 10/22/2019 10/23/2019 Last Assessment & Plan:Formatting of jaswinder s note might be different from the original. Replete mag today Preop cardiovascular exam 09/28/2019 10/06/2019 Precordial pain, short lived, 3-5 minutes, nonexertional, no 09/28/2019 07/07/2020 evidence of stress-induced ischemia on dobutamine echo in [facility] 2018. Last Assessment & Plan:Formatting of jaswinder walden note might be different from the original. Assessment: Cardiac clearance obtained f abdiel Roth 09/2019. Stress Echo-CONCLUSIONS: - Exam indication: CP - ECG uninterpreta ble OR unable to exercise - The dobutamine stress echo was negativ e for ischemia at 89 % of MPHR. - The left ventricle is normal in size. Left ventricular systolic function is mildly decreased. EF = 52 5% (2D 4-ch.) Normal left ventricular diastolic function. -There appears to be a redundant chord m id LV. - The patient has not had a prior CC ech ocardiographic exam for comparison. History of total right hip arthroplasty 03/25/2019 07/07/2020 Primary osteoarthritis of right hip 03/13/201909/12 Hyperkalemia 07/27/2016 11/27/2018 Polycythemia 07/27/2016 11/27/2018 Overview:Formatting of this note might b e different from the original. lyubov Anxiety 12/14/2015 01/06/2021 documented as of this encounter (statuses as of 11/26/2022)[facility] 07-07-2020 History of Past illness Narrative Problem Noted Date Resolved Date Asthma 07/07/2020 07/07/2020 Hypomagnesemia 10/22/2019 10/23/2019 Last Assessment & Plan:Formatting of jaswinder s note might be different from the original. Replete mag today Preop cardiovascular exam 09/28/2019 10/06/2019 Precordial pain, short lived, 3-5 minutes, nonexertional, no 09/28/2019 07/07/2020 evidence of stress-induced ischemia on dobutamine echo in [facility] 2018. Last Assessment & Plan:Formatting of jaswinder s note might be different from the original. Assessment: Cardiac clearance obtained f rom Dr. Roth 09/2019. Stress Echo-CONCLUSIONS: - Exam indication: CP - ECG uninterpreta ble OR unable to exercise - The dobutamine stress echo was negativ e for ischemia at 89 % of MPHR. - The left ventricle is normal in size. Left ventricular systolic function is mildly decreased. EF = 52 5% (2D 4-ch.) Normal left ventricular diastolic function. -There appears to be a redundant chord m id LV. - The patient has not had a prior [facility] ech ocardiographic exam for comparison. History of total right hip arthroplasty 03/25/2019 07/07/2020 Primary osteoarthritis of right hip 03/13/201909/12 Hyperkalemia 07/27/2016 11/27/2018 Polycythemia 07/27/2016 11/27/2018 Overview:Formatting of this note might b e different from the original. recheck Anxiety 12/14/2015 01/06/2021 documented as of this encounter (statuses as of 12/15/2022)[facility] 07-07-2020 History of Past illness Narrative Problem Noted Date Resolved Date Asthma 07/07/2020 07/07/2020 Hypomagnesemia 10/22/2019 10/23/2019 Last Assessment & Plan:Formatting of jaswinder s note might be different from the original. Replete mag today Preop cardiovascular exam 09/28/2019 10/06/2019 Precordial pain, short lived, 3-5 minutes, nonexertional, no 09/28/2019 07/07/2020 evidence of stress-induced ischemia on dobutamine echo in [facility] 2018. Last Assessment & Plan:Formatting of jaswinder s note might be different from the original. Assessment: Cardiac clearance obtained f rom Dr. Roth 09/2019. Stress Echo-CONCLUSIONS: - Exam indication: CP - ECG uninterpreta ble OR unable to exercise - The dobutamine stress echo was negativ e for ischemia at 89 % of MPHR. - The left ventricle is normal in size. Left ventricular systolic function is mildly decreased. EF = 52 5% (2D 4-ch.) Normal left ventricular diastolic function. -There appears to be a redundant chord m id LV. - The patient has not had a prior [facility] ech ocardiographic exam for comparison. History of total right hip arthroplasty 03/25/2019 07/07/2020 Primary osteoarthritis of right hip 03/13/201909/12 Hyperkalemia 07/27/2016 11/27/2018 Polycythemia 07/27/2016 11/27/2018 Overview:Formatting of this note might b e different from the original. recheck Anxiety 12/14/2015 01/06/2021 documented as of this encounter (statuses as of 01/01/2023)[facility] 07-07-2020 History of Past illness Narrative Problem Noted Date Resolved Date Asthma 07/07/2020 07/07/2020 Hypomagnesemia 10/22/2019 10/23/2019 Last Assessment & Plan:Formatting of jaswinder walden note might be different from the original. Replete mag today Preop cardiovascular exam 09/28/2019 10/06/2019 Precordial pain, short lived, 3-5 minutes, nonexertional, no 09/28/2019 07/07/2020 evidence of stress-induced ischemia on dobutamine echo in [facility] 2018. Last Assessment & Plan:Formatting of jaswinder walden note might be different from the original. Assessment: Cardiac clearance obtained f rom Dr. Roth 09/2019. Stress Echo-CONCLUSIONS: - Exam indication: CP - ECG uninterpreta ble OR unable to exercise - The dobutamine stress echo was negativ e for ischemia at 89 % of MPHR. - The left ventricle is normal in size. Left ventricular systolic function is mildly decreased. EF = 52 5% (2D 4-ch.) Normal left ventricular diastolic function. -There appears to be a redundant chord m id LV. - The patient has not had a prior [facility] ech ocardiographic exam for comparison. History of total right hip arthroplasty 03/25/2019 07/07/2020 Primary osteoarthritis of right hip 03/13/201909/12 Hyperkalemia 07/27/2016 11/27/2018 Polycythemia 07/27/2016 11/27/2018 Overview:Formatting of this note might b e different from the original. recheck Anxiety 12/14/2015 01/06/2021 documented as of this encounter (statuses as of 01/01/2023)[facility] Evaluation + Plan noteNo data available for this sectionPrem[facility] Diagnosis Recurrent major depression in partial [place] ([facility]) Major depressive disorder, recurrent epi sode, in partial or unspecified remission documented in this encounterTowanda ClinicEvaluation note Diagnosis Dyspnea on exertion- Primary Other dyspnea and respiratory abnormalit y Smoker Tobacco use disorder Encounter for screening for malignant ne oplasm of lung documented in this encounterTowanda ClinicEvaluation note Diagnosis Wheezing documented [facility] DIAZ (dyspnea on exertion)- Primary Other dyspnea and respiratory abnormalit y Essential hypertension Unspecified essential hypertension Coronary artery disease involving [place] coronary artery of [place] heart without angina pectoris Mixed hyperlipidemia Smoker Tobacco use disorder Stenosis of carotid artery, unspecified laterality documented in this encounterTowanda ClinicEvaluation note Diagnosis Recurrent major depression in partial [place] ([facility]) Major depressive disorder, recurrent epi sode, in partial or unspecified remission documented in this encounterC[facility] Diagnosis Chronic bronchitis, unspecified chronic bronchitis type ([facility])- Primary Recurrent major depression in [facility] [place] ([facility]) Major depressive disorder, recurrent epi sode, in partial or unspecified remission Gastroesophageal reflux disease, unspeci fied whether esophagitis present Need for vaccination Need for prophylactic vaccination and in oculation against unspecified single disease Bipolar affective disorder, current epis ode mixed, current episode severity unspecified ([facility]) PAD (peripheral artery disease) ([facility]) Peripheral vascular disease, unspecified documented in [facility] Diagnosis DIAZ (dyspnea on exertion) Other dyspnea and respiratory abnormalit y documented in [facility] Diagnosis Tobacco use disorder- Primary documented in [facility] Diagnosis Smoker- Primary Tobacco use disorder Encounter for screening for malignant ne oplasm of lung documented in [facility] Diagnosis Chronic bronchitis, unspecified chronic bronchitis type ([facility])- Primary documented in [facility] Diagnosis Dyspnea on exertion Other dyspnea and respiratory abnormalit y documented in [facility] Diagnosis Asthma-COPD overlap syndrome ([facility])- Prim gabriel Wheezing Smoking Tobacco use disorder documented in [facility] Diagnosis Recurrent major depression in [place] ([facility]) Major depressive disorder, recurrent epi sode, in partial or unspecified remission documented in [facility] Diagnosis SOB (shortness of breath)- Primary Shortness of breath documented in [facility] Diagnosis SOB (shortness of breath) Shortness of breath documented in this encounterCleveland ClinicEvaluation note Diagnosis Recurrent major depression in [place] ([facility]) Major depressive disorder, recurrent epi sode, in partial or unspecified remission documented in [facility] Diagnosis Lung nodules- Primary Other nonspecific abnormal finding of [facility] Current smoker Tobacco use disorder documented in [facility] Diagnosis Situational anxiety- Primary Other anxiety states Allergic conjunctivitis of both eyes Other chronic allergic conjunctivitis Recurrent major depression in [place] ([facility]) Major depressive disorder, recurrent epi sode, in partial or unspecified remission Essential hypertension Unspecified essential hypertension Coronary artery disease involving [place] coronary artery of [place] heart without angina pectoris Chronic bronchitis, unspecified chronic bronchitis type ([facility]) Encounter for immunization Need for other specified prophylactic va ccination against single bacterial disease Mixed hyperlipidemia Lung nodule Solitary pulmonary nodule Screening for osteoporosis Special screening for osteoporosis Asymptomatic menopause documented in [facility] Diagnosis Thrush (oral)- Primary Prediabetes Other abnormal glucose Essential hypertension Unspecified essential hypertension documented in [facility] Diagnosis Peripheral arterial disease ([facility])- Prima ry Peripheral vascular disease, unspecified documented in [facility] Diagnosis PAD (peripheral artery disease) (HCC) Peripheral vascular disease, unspecified documented in this encounterC[facility] HospitalEvaluation note Diagnosis Hemoptysis- Primary Hemoptysis, unspecified Stage 3 severe COPD by GOLD classificati on (HCC) Cigarette smoker Tobacco use disorder documented in this encounterC[facility] Clinic [facility] HospitalEvaluation note Diagnosis Alcohol withdrawal syndrome without comp lication (HCC)- Primary documented in this encounterSt. [facility] Campusital Discharge instructionsNo data available for this [facility] Yolanda Bear RN: PERFORM Event Display: [facility] Patient Summary Authored Date: [id number] Discharge Instructions Thank you for allowing [place] to assist you with your healthcare needs. The following is important discharge information regarding your hospital visit. Diagnosis from Today's Visit Acute exacerbation of COPD Shortness of breath What to Do Next Instructions from Your Care Team No qualifying data available. Post Acute Orders No qualifying data available. You Need to Schedule the Following Appointments Follow Up with Go to emergency room if symptoms worsen When Within 2-4 days Follow Up with ULISES HERMOSILLO MD When Within 2-4 days Where: [address] [place] [address]- Allergies NKA Medications Please ask your primary doctor or pharmacist before taking any other medication not listed, including over the counter drugs, herbal medications, vitamins and or supplements as they may interact with your home medications. What How Much When Why Instructions Last Dose New doxycycline (doxycycline hyclate 100 mg oral capsule) 1 cap by mouth Every 12 hours Acute exacerbation of COPD Duration: 7 Days Printed Prescription New predniSONE (predniSONE 20 mg oral tablet) 2 tab(s) by mouth Once a day with a meal Acute exacerbation of COPD Duration: 7 Days Printed Prescription Unchanged albuterol (albuterol MDI (90 mcg/ inh) CFC free inhalation aerosol) 2 puff(s) by inhalation Four (4) times a day as needed for as needed for wheezing Unchanged amLODIPine (amLODIPine 10 mg oral tablet) 1 tab(s) by mouth Once a day Unchanged aspirin 81 Milligram Chewed Once a day Unchanged atorvastatin (atorvastatin 80 mg oral tablet) 1 tab(s) by mouth Once a day Unchanged budesonide-formoterol (Symbicort 160 mcg-4.5 mcg/ inh Inhaler) 2 puff(s) by inhalation Two (2) times a day Unchanged carvedilol (carvedilol 6.25 mg oral tablet) 1 tab(s) by mouth Two (2) times a day Unchanged clopidogrel (clopidogrel 75 mg oral tablet) 1 tab(s) by mouth Every day Unchanged isosorbide mononitrate (isosorbide mononitrate 30 mg oral tablet, extended release) 1 tab(s) by mouth Once a day (in the morning) Unchanged lisinopril (lisinopril 40 mg oral tablet) 1 tab(s) by mouth Once a day Unchanged omeprazole (omeprazole 40 mg oral delayed release capsule) 1 cap by mouth Once a day Unchanged traZODone (traZODone 100 mg oral tablet) 1 tab(s) by mouth Daily at bedtime Unchanged venlafaxine (venlafaxine 150 mg oral capsule, extended release) 1 cap by mouth Once a day Please take this list to your next doctor s visit. Bring all medications you take, including over the counter medications, herbals and other supplements with you to your doctor s visit. Patients and families are reminded to discard old lists and to update any records with all medication providers or retail pharmacies. Medication Leaflets budesonide and formoterol (inhalation) (dunia herbert and mariluz bradley Symbicort What is the most important information I should know about budesonide and formoterol? Budesonide and formoterol is not a rescue medicine for asthma attacks. Seek medical attention if your breathing problems get worse quickly, or if you think your asthma medications are not working as well. What is budesonide and formoterol inhalation? Formoterol is a long-acting bronchodilator. Budesonide is a steroid. Budesonide and formoterol is a combination medicine used to control and prevent the symptoms of asthma in adults and children at least 6 years old. Budesonide and formoterol is also used to help control the symptoms of chronic obstructive pulmonary disease (COPD), including chronic bronchitis and emphysema. This medicine is not for use in treating an asthma or bronchospasm attack. Formoterol when used alone may increase the risk of in people with asthma. However, this riskis not increased when budesonide and formoterol are used together as a combination product. Budesonide and formoterol may also be used for purposes not listed in this medication guide. What should I discuss with my healthcare provider before using budesonide and formoterol? You should not use this medicine if you are allergic to budesonide or formoterol. Budesonide can weaken your immune system. Tell your doctor about any illness or infection you've had within the past several weeks. Tell your doctor if you have ever had: heart disease, high blood pressure; a seizure; a weak immune system; liver disease; osteoporosis; glaucoma, cataracts, or other vision problems; diabetes; a drug allergy; tuberculosis; a thyroid disorder; or an electrolyte imbalance (such as low potassium levels in your blood). Tell your doctor if you are . It is not known whether this medicine will harm an unborn baby. However, having untreated or uncontrolled asthma during may cause complications such as low weight, premature , or eclampsia (dangerously high blood pressure that can lead to medical problems in both mother and baby). The benefit of treating asthma may outweigh any risks to the baby. It may not be safe to breastfeed while using this medicine. Ask your doctor about any risk. Budesonide and formoterol is not approved for use by anyone younger than 6 years old. How should I use budesonide and formoterol? Follow all directions on your prescription label and read all medication guides. Use the medicine exactly as directed. Using too much of this medicine can cause life-threatening side effects. If you also use an oral steroid medication, you should not stop using it suddenly. Follow your doctor's instructions about tapering your dose. Budesonide and formoterol is not a rescue medicine for asthma or bronchospasm attacks. Use only fast-acting inhalation medicine for an attack. Seek medical attention if your breathing problems get worse quickly, or if you think your asthma medications are not working as well. Read and carefully follow any Instructions for Use provided with your medicine. Ask your doctor or pharmacist if you do not understand these instructions. Do not allow a young child to use budesonide and formoterol without help from an adult. Rinse your mouth with water after each use of your inhaler. It may take up to 1 week before your symptoms improve. Keep using the medication as directed and tell your doctor if your symptoms do not improve. Your dose needs may change if you have surgery, are ill, are under stress, or have recently had an asthma attack. Do not change your medication dose or schedule without your doctor's advice. If you use a peak flow meter at home, tell your doctor if your numbers are lower than normal. Store at room temperature in an upright position, with the mouthpiece down. Keep away from open flame or high heat. The canister may explode if it gets too hot. Do not puncture or burn an empty inhaler canister. Throw the canister away when the inhalations counter shows a 0, or if it has been longer than 3 months since you first took the canister out of its foil pouch. What happens if I miss a dose? Skip the missed dose and use your next dose at the regular time. Do not use two doses at one time. What happens if I overdose? Seek emergency medical attention or call the Poison Help line at . Overdose symptoms may include chest pain, fast heartbeats, and feeling shaky or nervous. What should I avoid while using budesonide and formoterol? If this medication gets in your eyes, rinse with water and call your doctor if you have severe eye redness or irritation. Avoid being near people who are sick or have infections. Call your doctor for preventive treatment if you are exposed to chickenpox or measles. These conditions can be serious or even fatal in people who are using a steroid such as budesonide. Do not use a second inhaled bronchodilator that contains formoterol or a similar medicine (such asarformoterol, formoterol, indacaterol, olodaterol, salmeterol, or vilanterol). What are the possible side effects of budesonide and formoterol? Get emergency medical help if you have signs of an allergic reaction: hives; difficulty breathing; swelling of your face, lips, tongue, or throat. Call your doctor at once if you have: worsened breathing problems; sores or white patches in your mouth and throat, pain when swallowing; tremors, nervousness, chest pain, fast or pounding heartbeats; cough with mucus, feeling short of breath; wheezing, choking, or other breathing problems after using this medication; blurred vision, tunnel vision, eye pain or redness, or seeing halos around lights; flu symptoms--fever, chills, body aches, unusual tiredness; high blood sugar--increased thirst, increased urination, dry mouth, fruity breath odor; low potassium level--leg cramps, constipation, irregular heartbeats, fluttering in your chest, numbness or tingling, muscle weakness or limp feeling; or signs of a hormonal disorder--tiredness or weakness, feeling light-headed, nausea, vomiting. Budesonide can affect growth in children. Tell your doctor if your child is not growing at a normalrate while using this medicine. Common side effects may include: throat pain or irritation; white patches in your mouth or throat; stomach discomfort, vomiting; back pain, headache; flu symptoms; or cold symptoms such as stuffy or runny nose, sneezing, sinus pain, sore throat. This is not a complete list of side effects and others may occur. Call your doctor for medical advice about side effects. You may report side effects to FDA at 0-099-JGS-9534. What other drugs will affect budesonide and formoterol? Sometimes it is not safe to use certain medications at the same time. Some drugs can affect your blood levels of other drugs you take, which may increase side effects or make the medications less effective. Many drugs can affect budesonide and formoterol. This includes prescription and ukcm-pyd-[id number] medicines, vitamins, and herbal products. Not all possible interactions are listed here. Tell your doctor about all your current medicines and any medicine you start or stop using. Where can I get more information? Your pharmacist can provide more information about budesonide and formoterol. Remember, keep this and all other medicines out of the reach of children, never share your medicines with others, and use this medication only for the indication prescribed. Every effort has been made to ensure that the information provided by [employer]. [employer] is accurate, up-to-date, and complete, but no guarantee is made to that effect. Drug information contained herein may be time sensitive. [employer] information has been compiled for use by healthcare practitioners and consumers in the [place] and therefore [employer] does not warrant that uses outside of the [place] are appropriate, unless specifically indicated otherwise. [employer]'s drug information does not endorse drugs, diagnose patients or recommend therapy. [employer]'s drug information is an informational resource designed to assist licensed healthcare practitioners in caring for their patient s and/or to serve consumers viewing this service as a supplement to, and not a substitute for, the expertise, skill, knowledge and judgment of healthcare practitioners. The absence of a warning for a given drug or drug combination in no way should be construed to indicate that the drug or drug combination is safe, effective or appropriate for any given patient. [facility] does not assume any responsibility for any aspect of healthcare administered with the aid of information [facility] provides. The information contained herein is not intended to cover all possible uses, directions, precautions, warnings, drug interactions, allergic reactions, or adverse effects. If you have questions about the drugs you are taking, check with your doctor, nurse or pharmacist. Copyright 8931-5458 [employer]. Version: 9.02. Revision Date: 07/08/2019. prednisone (PRED sameer Cervantes What is the most important information I should know about prednisone? You should not use prednisone if you have a fungal infection anywhere in your body. You should not stop using prednisone suddenly. Follow your doctor's instructions about tapering your dose. What is prednisone? Prednisone is a steroid that reduces inflammation in the body, and also suppresses your immune system. Prednisone is used to treat many different conditions such as hormonal disorders, skin diseases, arthritis, lupus, psoriasis, allergic conditions, ulcerative colitis, Crohn's disease, eye diseases, lung diseases, asthma, tuberculosis, blood cell disorders, kidney disorders, leukemia, lymphoma, multiple sclerosis, organ transplant rejection, swelling from a brain tumor or injury. Prednisone may also be used for purposes not listed in this medication guide. What should I discuss with my healthcare provider before taking prednisone? You should not use prednisone if you are allergic to it, or if you have a fungal infection anywherein your body. Steroid medication can weaken your immune system, making it easier for you to get an infection or worsening an infection you already have. Tell your doctor about any illness or infection you've had within the past several weeks. Tell your doctor if you have ever had: heart problems, high blood pressure, or a heart attack; glaucoma or cataracts; herpes infection of the eyes; past or present tuberculosis; a parasite infection that causes diarrhea (such as threadworms); any illness that causes diarrhea; underactive thyroid; diabetes; a stomach ulcer, diverticulitis; a colostomy or ileostomy; osteoporosis or low bone mineral density (steroid medication can increase your risk of bone loss); low levels of calcium or potassium in your blood; cirrhosis or other liver disease; mental illness or psychosis; or a muscle disorder such as myasthenia gravis. Long-term use of steroids may lead to bone loss (osteoporosis), especially if you smoke or drink alcohol, if you do not exercise, or if you do not get enough vitamin D or calcium in your diet. It is not known whether this medicine will harm an unborn baby. Tell your doctor if you are or plan to become . You should not breastfeed while using prednisone. How should I take prednisone? Follow all directions on your prescription label and read all medication guides or instruction sheets. Your doctor may occasionally change your dose. Use the medicine exactly as directed. Prednisone is taken daily or every other day, depending on the condition being treated. You may need to take the medicine at a certain time of day. Follow your doctor's instructions about when and howoften to take this medicine. Take with food if prednisone upsets your stomach. Measure liquid medicine carefully. Use the dosing syringe provided, or use a medicine dose-measuring device (not a kitchen spoon). Swallow the delayed-release tablet whole and do not crush, chew, or break it. Prednisone can weaken (suppress) your immune system, and you may get an infection more easily. [place] doctor if you have signs of infection (fever, weakness, cold or flu symptoms, skin sores, diarrhea, frequent or recurring illness). If you have major surgery or a severe injury or infection, your prednisone dose needs may change. Make sure any doctor caring for you knows you are using this medicine. If you use this medicine long-term, you may need medical tests and vision exams. In case of emergency, wear or carry medical identification to let others know you use a steroid. You should not stop using prednisone suddenly. Follow your doctor's instructions about tapering your dose. Store at room temperature away from moisture, heat, and light. What happens if I miss a dose? Take the medicine as soon as you can, but skip the missed dose if it is almost time for your next dose. Do not take two doses at one time. What happens if I overdose? Seek emergency medical attention or call the Poison Help line at . High doses or long-term use of prednisone can lead to thinning skin, easy bruising, changes in bodyfat (especially in your face, neck, back, and waist), increased acne or facial hair, menstrual problems, impotence, or loss of interest in sex. What should I avoid while taking prednisone? Do not receive a 'live' vaccine while using prednisone. The vaccine may not work as well and may not fully protect you from disease. Live vaccines include measles, mumps, rubella (MMR), polio, rotavirus, typhoid, yellow fever, varicella (chickenpox), zoster (shingles), and nasal flu (influenza) vaccine. Avoid being near people who are sick or have infections. Call your doctor for preventive treatment if you are exposed to chickenpox or measles. These conditions can be serious or even fatal in people who are using steroid medicine. Avoid drinking alcohol. What are the possible side effects of prednisone? Get emergency medical help if you have signs of an allergic reaction: hives; difficult breathing; swelling of your face, lips, tongue, or throat. Call your doctor at once if you have: muscle pain or weakness; blurred vision, tunnel vision, eye pain, or seeing halos around lights; severe depression, changes in personality, unusual thoughts or behavior; bloody or tarry stools, coughing up blood or vomit that looks like coffee grounds; swelling, rapid weight gain, feeling short of breath; irregular heartbeats; severe headache, pounding in your neck or ears; decreased adrenal gland hormones--muscle weakness, tiredness, diarrhea, nausea, menstrual changes, skin discoloration, craving salty foods, and feeling light- headed; or low potassium level--leg cramps, constipation, irregular heartbeats, fluttering in your chest, increased thirst or urination, numbness or tingling, muscle weakness or limp feeling. Prednisone can affect growth in children. Tell your doctor if your child is not growing at a normalrate while using this medicine. Common side effects may include: weight gain (especially in your face or your upper back and torso); increased appetite; mood changes, trouble sleeping; changes in your menstrual periods; problems with memory or thought; muscle or joint pain; weakness; headache, dizziness, spinning sensation; nausea, bloating, loss of appetite; slow wound healing; or acne, increased sweating, thinning skin, bruising, pinpoint spots under your skin. This is not a complete list of side effects and others may occur. Call your doctor for medical advice about side effects. You may report side effects to FDA at 4-808-LZB-0170. What other drugs will affect prednisone? Sometimes it is not safe to use certain medications at the same time. Some drugs can affect your blood levels of other drugs you take, which may increase side effects or make the medications less effective. Tell your doctor about all your current medicines. Many drugs can affect prednisone, especially: bupropion; cyclosporine; digoxin; ketoconazole; an antibiotic; control pills or hormone replacement therapy; a diuretic or 'water pill'; insulin or oral diabetes medicine; a blood thinner--warfarin, Coumadin, Jantoven; or NSAIDs (nonsteroidal anti-inflammatory drugs)--aspirin, ibuprofen (Advil, Motrin), naproxen (Aleve), celecoxib, diclofenac, indomethacin, meloxicam, and others. This list is not complete and many other drugs may affect prednisone. This includes prescription and rekc-kss-vpgfxbl medicines, vitamins, and herbal products. Not all possible drug interactions are listed here. Where can I get more information? Your pharmacist can provide more information about prednisone. Remember, keep this and all other medicines out of the reach of children, never share your medicines with others, and use this medication only for the indication prescribed. Every effort has been made to ensure that the information provided by [employer] is accurate, up-to-date, and complete, but no guarantee is made to that effect. Drug information contained herein may be time sensitive. [employer] information has been compiled for use by healthcare practitioners and consumers in the [place] and therefore [employer] does not warrant that uses outside of the [place] are appropriate, unless specifically indicated otherwise. [employer]'s drug information does not endorse drugs, diagnose patients or recommend therapy. [employer] drug information is an informational resource designed to assist licensed healthcare practitioners in caring for their patient s and/or to serve consumers viewing this service as a supplement to, and not a substitute for, the expertise, skill, knowledge and judgment of healthcare practitioners. The absence of a warning for a given drug or drug combination in no way should be construed to indicate that the drug or drug combination is safe, effective or appropriate for any given patient. [facility] does not assume any responsibility for any aspect of healthcare administered with the aid of information [facility] provides. The information contained herein is not intended to cover all possible uses, directions, precautions, warnings, drug interactions, allergic reactions, or adverse effects. If you have questions about the drugs you are taking, check with your doctor, nurse or pharmacist. Copyright 4219-6921 [facility]. Version: 08.11. Revision Date: 02/05/2019. doxycycline (oral/injection) (DOX sandra kam) Acticlate, Adoxa, Alodox, Avidoxy, Doryx, Mondoxyne NL, Monodox, Morgidox, Okebo, Oracea, Oraxyl, Targadox, Vibramycin What is the most important information I should know about doxycycline? You should not take this medicine if you are allergic to any tetracycline antibiotic. Children younger than 8 years old should use doxycycline only in cases of severe or life-threatening conditions. This medicine can cause permanent yellowing or graying of the teeth in children Using doxycycline during could harm the unborn baby or cause permanent tooth discoloration later in the baby's life. What is doxycycline? Doxycycline is a tetracycline antibiotic that Doxycycline is used to treat many different bacterial infections, such as acne, urinary tract infections, intestinal infections, eye infections, gonorrhea, chlamydia, periodontitis (gum disease), and others. Doxycycline is also used to treat blemishes, bumps, and acne-like lesions caused by rosacea. Doxycycline will not treat facial redness caused by rosacea. Some forms of doxycycline are used to prevent malaria, to treat anthrax, or to treat infections caused by mites, ticks, or lice. Doxycycline may also be used for purposes not listed in this medication guide. What should I discuss with my healthcare provider before taking doxycycline? You should not take this medicine if you are allergic to doxycycline or other tetracycline antibiotics such as demeclocycline, minocycline, tetracycline, or tigecycline. Tell your doctor if you have ever had: liver disease; kidney disease; asthma or sulfite allergy; increased pressure inside your skull; or if you also take isotretinoin, seizure medicine, or a blood thinner such as warfarin (Coumadin). If you are using doxycycline to treat gonorrhea, your doctor may test you to make sure you do not also have syphilis, another sexually transmitted disease. Taking this medicine during may affect tooth and bone development in the unborn baby. Taking doxycycline during the last half of can cause permanent tooth discoloration later in the baby's life. Tell your doctor if you are or if you become . Doxycycline can make control pills less effective. Ask your doctor about using a non-hormonalbirth control (condom, diaphragm with spermicide) to prevent . Doxycycline can pass into breast milk and may affect bone and tooth development in a nursing . Do not breastfeed while you are taking doxycycline. Doxycycline can cause permanent yellowing or graying of the teeth in children younger than 8 years old. Children should use doxycycline only in cases of severe or life-threatening conditions such as anthrax or [place] spotted fever. The benefit of treating a serious condition may outweigh any risks to the child's tooth development. How should I take doxycycline? Follow all directions on your prescription label and read all medication guides or instruction sheets. Use the medicine exactly as directed. Take doxycycline with a full glass of water. Drink plenty of liquids while you are taking doxycycline. Read and carefully follow any Instructions for Use provided with your medicine. Ask your doctor or pharmacist if you do not understand these instructions. Most brands of doxycyline may be taken with food or milk if the medicine upsets your stomach. Different brands of doxycycline may have different instructions about taking them with or without food. Take Oracea on an empty stomach, at least 1 hour before or 2 hours after a meal. You may need to split a doxycycline tablet to get the correct dose. Follow your doctor's instructions. Swallow a delayed-release capsule or tablet whole. Do not crush, chew, break, or open it. Measure liquid medicine with the dosing syringe provided, or with a special dose-measuring spoon ormedicine cup. If you do not have a dose-measuring device, ask your pharmacist for one. If you take doxycycline to prevent malaria: Start taking the medicine 1 or 2 days before entering an area where malaria is common. Continue taking the medicine every day during your stay and for at least 4 weeks after you leave the area. Doxycycline is usually given by injection only if you are unable to take the medicine by mouth. A healthcare provider will give you this injection as an infusion into a vein. Use this medicine for the full prescribed length of time, even if your symptoms quickly improve. Skipping doses can increase your risk of infection that is resistant to medication. Doxycycline will not treat a viral infection such as the flu or a common cold. Store at room temperature away from moisture, heat, and light. Throw away any unused medicine after the expiration date on the label has passed. Using doxycycline can cause damage to your kidneys. What happens if I miss a dose? Take the medicine as soon as you can, but skip the missed dose if it is almost time for your next dose. Do not take two doses at one time. What happens if I overdose? Seek emergency medical attention or call the Poison Help line at . What should I avoid while taking doxycycline? Do not take iron supplements, multivitamins, calcium supplements, antacids, or laxatives within 2 hours before or after taking doxycycline. Avoid taking any other antibiotics with doxycycline unless your doctor has told you to. Doxycycline could make you sunburn more easily. Avoid sunlight or tanning beds. Wear protective clothing and use sunscreen (SPF 30 or higher) when you are outdoors. Antibiotic medicines can cause diarrhea, which may be a sign of a new infection. If you have diarrhea that is watery or bloody, call your doctor. Do not use anti-diarrhea medicine unless your doctor tells you to. What are the possible side effects of doxycycline? Get emergency medical help if you have signs of an allergic reaction (hives, difficult breathing, swelling in your face or throat) or a severe skin reaction (fever, sore throat, burning in your eyes, skin pain, red or purple skin rash that spreads and causes blistering and peeling). Seek medical treatment if you have a serious drug reaction that can affect many parts of your body.Symptoms may include: skin rash, fever, swollen glands, flu- like symptoms, muscle aches, severe weakness, unusual bruising, or yellowing of your skin or eyes. This reaction may occur several weeks after you began using doxycycline. Call your doctor at once if you have: severe stomach pain, diarrhea that is watery or bloody; throat irritation, trouble swallowing; chest pain, irregular heart rhythm, feeling short of breath; little or no urination; low white blood cell counts--fever, chills, swollen glands, body aches, weakness, pale skin, easy bruising or bleeding; increased pressure inside the skull--severe headaches, ringing in your ears, dizziness, nausea, vision problems, pain behind your eyes; or signs of liver or pancreas problems--loss of appetite, upper stomach pain (that may spread to your back), tiredness, nausea or vomiting, fast heart rate, dark urine, jaundice (yellowing of the skin oreyes). Common side effects may include: nausea, vomiting, upset stomach, loss of appetite; mild diarrhea; skin rash or itching; darkened skin color; or vaginal itching or discharge. This is not a complete list of side effects and others may occur. Call your doctor for medical advice about side effects. You may report side effects to FDA at 2-257-AHH-0045. What other drugs will affect doxycycline? Sometimes it is not safe to use certain medications at the same time. Some drugs can affect your blood levels of other drugs you take, which may increase side effects or make the medications less effective. Other drugs may affect doxycycline, including prescription and xedg-cwk-upoejrb medicines, vitamins, and herbal products. Tell your doctor about all your current medicines and any medicine you start or stop using. Where can I get more information? Your pharmacist can provide more information about doxycycline. Remember, keep this and all other medicines out of the reach of children, never share your medicines with others, and use this medication only for the indication prescribed. Every effort has been made to ensure that the information provided by [employer]. [employer]') is accurate, up-to-date, and complete, but no guarantee is made to that effect. Drug information contained herein may be time sensitive. [employer] information has been compiled for use by healthcare practitioners and consumers in the [place] and therefore [employer] does not warrant that uses outside of the [place] are appropriate, unless specifically indicated otherwise. [employer] drug information does not endorse drugs, diagnose patients or recommend therapy. [employer] drug information is an informational resource designed to assist licensed healthcare practitioners in caring for their patient s and/or to serve consumers viewing this service as a supplement to, and not a substitute for, the expertise, skill, knowledge and judgment of healthcare practitioners. The absence of a warning for a given drug or drug combination in no way should be construed to indicate that the drug or drug combination is safe, effective or appropriate for any given patient. [facility] does not assume any responsibility for any aspect of healthcare administered with the aid of information [facility] provides. The information contained herein is not intended to cover all possible uses, directions, precautions, warnings, drug interactions, allergic reactions, or adverse effects. If you have questions about the drugs you are taking, check with your doctor, nurse or pharmacist. Copyright 2633-9041 [employer]. Version: 21.04. Revision Date: 09/14/2020. Education Materials COPD Flare You have had a flare-up of your COPD. COPD (chronic obstructive pulmonary disease) is a common lung disease. It causes your airways to getirritated and narrower. This makes it harder for you to breathe. Emphysema and chronic bronchitis are both types of COPD. This is a long-term (chronic) condition. This means you always have it. Sometimes it gets worse. When this happens, it is called a flare-up. Symptoms of COPD People with COPD may have symptoms most of the time. In a flare-up, your symptoms get worse. These symptoms may mean you are having a flare-up: Shortness of breath, shallow or rapid breathing, or wheezing that gets worse Lung infection Cough that gets worse More mucus, thicker mucus or mucus of a different color Tiredness, less energy, or trouble doing your normal activities Fever Chest tightness Your symptoms don t get better even when you use your normal medicines, inhalers, and nebulizer Trouble talking You feel confused Causes of flare-ups Unfortunately, a flare-up can happen even if you did everything right. And even if you followed yourhealthcare provider s instructions. Some causes of flare-ups are: Smoking or secondhand smoke Colds, the flu, or respiratory infections Air pollution Sudden change in the weather Dust, irritating chemicals, or strong fumes Not taking your medicines as prescribed Home care Here are some things you can do at home to treat a flare-up: Try not to panic. This makes it harder to breathe, and keeps you from doing the right things. Don t smoke or be around others who are smoking. Try to drink more fluids than normal during a flare-up, unless your healthcare provider has told you not to because of heart and kidney problems. More fluids can help loosen the mucus. Use your inhalers and nebulizer, if you have one, as you have been told to. If you were given antibiotics, take them until they are used up or your provider tells you to stop.It s important to finish the antibiotics, even though you feel better. This will make sure the infection has cleared. If you were given prednisone or another steroid, finish it even if you feel better. Preventing a flare-up Flare-ups happen. But the best way to treat one is to prevent it before it starts. Here are some pointers: Don t smoke or be around others who are smoking. Take your medicines as discussed with your healthcare provider. Talk with your provider about getting a flu shot every year. Also find out if you need a pneumonia shot. If there is a weather advisory warning to stay indoors, try to stay inside when possible. Try to eat healthy, exercise, and get plenty of sleep. Try to stay away from things that normally set you off. These include dust, chemical fumes, hairsprays, or strong perfumes. Follow-up care Follow up with your healthcare provider, or as advised. If a culture was done, you will be told if your treatment needs to be changed. You can call as directed for the results. If X-rays were done, you will be told of any new findings that may affect your care. Call 911 Call 911 if any of these occur: You have trouble breathing You feel confused or it s hard to wake you up You faint or lose consciousness You have a rapid heart rate You have new pain in your chest, arm, shoulder, neck, or upper back When to seek medical advice Call your healthcare provider right away if any of these occur: Wheezing or shortness of breath gets worse You need to use your inhalers more often than normal without relief Fever of 100.4 F (38 C) or higher, or as directed by your healthcare provider Coughing up lots of dark-colored or bloody mucus (sputum) Chest pain with each breath You don't start to get better within 24 hours Swelling of your ankles gets worse Dizziness or weakness [id number] [employer]. [address] [place] [address], [place] [address]. All rights reserved. This information is not intended as a substitute for professional medical care. Always follow your healthcare professional's instructions. Additional Information VACCINATE! IT SAVES LIVES! Members of the community who have not yet received the COVID-19 vaccine and would like to receive itcan visit one of [facility] vaccine clinics. There are many vaccine clinic locations within the [facility].For locations and available times, please visit [email or web address]. It is importantto note that some COVID mobile vaccine clinics are held outdoors and may be canceled in rainy or stormy conditions. To learn more about pediatric vaccinations (ages 5-11), we invite you to visit the [facility] webpage. [email or web address] To learn more about the COVID-19 vaccine, we invite you to visit the [place] website for a list of frequently asked questions. [email or web address] [place] [facility] Patient Portal Access Instructions: Stay connected with your healthcare team and access your personal medical information anytime with the [facility] Patient Portal. If you would like a full copy of your medical records please contact the [facility] Medical Records Department Saturday through Saturday between 8a.m. and 4:30p.m. Please follow the directions below to access the portal: 1.Access the email account you provided upon registration to the hospital.2.Look for an invitation email from [facility].3.Open the email and access the invitation link: Accept Invitation to [facility].Fill in the required randle to create your account. Sign into [email or web address] with your username and password that you created in the above steps to stay up to date. You can then view a summary of results, a summary of your visits, and the ability to download your summaries to your computer or send the information securely to a physician. Remember thatyour healthcare information is confidential, so carefully consider who you will allow to register onthe [facility] Patient Portal for access to your information. You can also access the [facility] Patient Portal on the [employer] larissa. Simply click on Health Records under Health Data and then click on the [employer] logo. HOW TO SAFELY DISPOSE OF PRESCRIPTION MEDICATIONS Please use one of the following methods to safely dispose of your unused medications. 1.Use a drug disposal kit: the drug disposal pouch allows you to safely discard your old and unused drugs. Ask your nurse to give you one when you are discharged.2.Visit a local take-back location: Many local pharmacies and police departments have programs that collect old and unwanted prescription drugs. Call your local pharmacy or go to [email or web address] to find one close to you.3.Make use of household items: Use cat litter or old coffee grounds to dispose medications if other options are not available. Mix your drugs with these household products, seal them in an airtight container and throwit into the garbage. Call [facility]: [phone] to be sure your drugs can be disposed of in this way. Some medicines may require a different approach.4.Never flush your medications down the toilet. IF YOU HAVE BEEN PRESCRIBED AN OPIOIDS FOR PAIN If you have been prescribed an opioid (such as hydrocodone, oxycodone or morphine), it is critical to understand the possible side effects and risks of opioid pain medications. Even when taken as directed, opioids can have several side effects including: Tolerance, meaning you might need to take more of a medication for the same pain relief. Nausea, vomiting and/or constipation. Sleepiness, dizziness, dry mouth, confusion, depression or itching. Physical dependence, meaning you have withdrawal symptoms when a medication is stopped ? this can develop within a few days. KNOW YOUR RESPONSIBILITIES It is important to know exactly how much and how often to take the opioid pain medications you are prescribed. Never take opioids in higher amounts or more often than prescribed. Do not combine opioidswith alcohol or other drugs that cause drowsiness, such as benzodiazepines, also known as benzos, including diazepam and alprazolam, muscle relaxants or sleep aids. Never sell or share prescription opioids. This is illegal. Store opioids in a secure place and out of reach of others (including children, family, friends and visitors). The last page(s) of this document has been signed and retained as a CHART COPY Signatures Patient Education Materials COPD Flare Medication Leaflets budesonide and formoterol (inhalation), prednisone, doxycycline (oral/injection) My discharge plan and instructions have been reviewed and explained to me and I,VINCE KOENIG understand my current condition and have read and understand these discharge instructions. I have received a written copy of the plan/instructions. If I have questions, I am aware that I should contact my doctor. 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 Signature: Date/Time: Relationship to Patient: Witness Name/Signature: Date/Time: ZINA GLOVER DO: SIGN, VERIFY Event Display: EKG [ED AO] - CV Authored Date: [id number] [facility] Progress noteNo data available for this [facility] Reason for referral (narrative)Outpatient Procedure (Routine) - Authorized Specialty Diagnoses / Procedures Referred By Contact Refer red To Contact HEART AND VASCULAR Diagnoses DIAZ (dyspnea on exertion) Tracy Ramires[facility] Procedures ECHO ECHO TTHRC R-T 2D W/WOM-MODE COMPL SPEC&COLR D ANGELICA [place] [address] [place] [address] [place] [address] Referral ID Status Reason Start Expiration Visits Visits Date Date Requested Authorized [id number] Authorized Auto-Generat 04/30/2022 04/30/2023 1 1 ed Referral [facility] for referral (narrative)Outpatient Procedure (Routine) - Authorized Specialty Diagnoses / Procedures Referred By Contact Refer red To Contact [facility] Diagnoses SOB (shortness of breath) Margaret Shrestha, Res[facility] [place] Procedures OXIMETRY WITH AMBULATION NONINVASIVE EAR/PULSE OXIMETRY MULTIPLE DETER MD [id number] [place] [address] Referral ID Status Reason Start Expiration Visits Visits Date Date Requested Authorized [id number] Authorized Auto-Generat 07/06/2022 08/05/2023 1 1 ed Referral [facility] for referral (narrative)Outpatient Procedure (Routine) - Authorized Specialty Diagnoses / Procedures Referred By Contact Refer red To Contact HEART AND VASCULAR Diagnoses Peripheral arterial disease (HCC) Tawny Self, [facility] Procedures PVR LEG SHERIN VAS LAB NON-INVASIVE PHYSIOLOGIC STUDY EXTREMITY 3 [facility] [address] [place] [address] [place] [address] Referral ID Status Reason Start Expiration Visits Visits Date Date Requested Authorized [id number] Authorized Auto-Generat 11/10/2022 1 1 ed Referral 2 [facility] for referral (narrative)Outpatient Procedure (Routine) - Pending Review Specialty Diagnoses / Procedures Referred By Contact Refer red To Contact HEART AND VASCULAR Diagnoses PAD (peripheral artery disease) (HCC) Tawny Self, [facility] Procedures PVR LEG SHERIN VAS LAB NON-INVASIVE PHYSIOLOGIC STUDY EXTREMITY 3 [facility] [address] [place] [address] [place] [address] Referral ID Status Reason Start Expiration Visits Visits Date Date Requested Authorized [id number] Pending Auto-Generat 10/02/2023 1 1 Review ed Referral 2 [facility] for visit NarrativeOutpatient Procedure (Routine) - Closed Specialty Diagnoses / Procedures Referred By Contact Refer red To Contact HEART AND VASCULAR Diagnoses DAIZ (dyspnea on exertion) Tracy Ramires, [facility] Procedures ECHO ECHO TTHRC R-T 2D W/WOM-MODE COMPL SPEC&COLR D Z 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 [place] [address] [place] [address] [place] [address] Referral ID Status Reason Start Date Expiration Date Visits V isits Requested Authorized [id number] Closed Auto-Generate 04/30/2022 04/30/2023 1 1 d [facility] N[facility]ative[facility] Procedure (Routine) - Closed Specialty Diagnoses / Procedures Referred By Contact Refer red To Contact [facility] Diagnoses SOB (shortness of breath) Margaret Shrestha, Res[facility] [place] Procedures OXIMETRY WITH AMBULATION NONINVASIVE EAR/PULSE OXIMETRY MULTIPLE DETER [address] [place] [address] [place] [address] Referral ID Status Reason Start Date Expiration Date Visits V isits Requested Authorized [id number] Closed Auto-Generate 07/06/2022 08/05/2023 1 1 d Referral [facility] Summary Purpose Family History No Family History Records FoundNo Family History Records FoundNo Family History Records FoundNo Family History Records FoundNo Family History Records FoundNo Family History Records Found Advance Directives Documents on File Type Date Recorded Patient Dispatcher Ship Pilot Explanati on Advance Directive(s) 08/25/2021 8:30 AM Advance Directive(s) 07/27/2021 5:44 PM Advance Directive(s) 10/20/2019 11:23 AM Advance Directive(s) 10/05/2019 10:43 AM Advance Directive(s) 03/25/2019 7:55 AM Advance Directive(s) 01/06/2019 12:24 PM Advance Directive(s) 03/19/2017 9:41 AM Documents on File Type Date Recorded Patient Dispatcher Ship Pilot Explanati on Advance Directive(s) 08/25/2021 8:30 AM Advance Directive(s) 07/27/2021 5:44 PM Advance Directive(s) 10/20/2019 11:23 AM Advance Directive(s) 10/05/2019 10:43 AM Advance Directive(s) 03/25/2019 7:55 AM Advance Directive(s) 01/06/2019 12:24 PM Advance Directive(s) 03/19/2017 9:41 AM Reason for Referral Specialty Diagnoses / Procedures Referred By Contact Refer red To Contact Pulmonary and Critical Diagnoses Dyspnea on exertion Savanna [facility] Procedures CONSULT TO PULM/CRITICAL CARE OFFICE/OUTPATIENT [facility] 60-74 MINUTES MELISSA Guillen.FISH HATCHERY WORKER [address] [place] [address] Referral ID Status Reason Start Expiration Visits Visits Date Date Requested Authorized [id number] Authorized PCP Requested 03/13/2022 03/13/2023 1 1 Referral Specialty Diagnoses / Procedures Referred By Contact Refer red To Contact [facility] Diagnoses Dyspnea on exertion Savanna Kenny [facility] [place] Procedures LUNG DIFFUSION CAPACITY (DLCO) DIFFUSING CAPACITY APRN. CrystalFISH HATCHERY WORKER [address] [place] [address] [place] [address] Referral ID Status Reason Start Expiration Visits Visits Date Date Requested Authorized [id number] Authorized Auto-Generat 03/13/2022 04/12/2023 1 1 ed Referral Specialty Diagnoses / Procedures Referred By Contact Refer red To Contact [facility] Diagnoses Dyspnea on exertion Savanna Kenny [facility] [place] Procedures SPIROMETRY - BASELINE AND POST DILATOR BRNCDILAT RSPSE SPMTRY PRE&POST-BRNCDILAT ADMN MELISSA Guillen.FISH HATCHERY WORKER [address] [place] [address] [place] [address] Referral ID Status Reason Start Expiration Visits Visits Date Date Requested Authorized [id number] Authorized Auto-Generat 03/13/2022 04/12/2023 1 1 ed Referral Specialty Diagnoses / Procedures Referred By Contact Refer red To Contact Vascular Surgery Diagnoses PAD (peripheral artery disease) (HCC) Ulises Hermosillo MD Procedures CONSULT TO VASCULAR SURGERY OFFICE/OUTPATIENT [facility] 60-74 MINUTES [address] [place] [address] Referral ID Status Reason Start Expiration Visits Visits Date Date Requested Authorized [id number] Authorized PCP Requested 05/11/2022 05/11/2023 1 1 Referral Specialty Diagnoses / Procedures Referred By Contact Refer red To Contact HEART AND VASCULAR Diagnoses PAD (peripheral artery disease) (HCC) Ulises Hermosillo, [facility] Procedures PVR LEG SHERIN VAS LAB NON-INVASIVE PHYSIOLOGIC STUDY EXTREMITY 3 ALPHONSO CASTILLO [place] [address] [place] [address] [place] [address] Referral ID Status Reason Start Expiration Visits Visits Date Date Requested Authorized [id number] Authorized Auto-Generat 05/11/2022 05/11/2023 1 1 ed Referral Specialty Diagnoses / Procedures Referred By Contact Refer red To Contact CT IMAGING Diagnoses Smoker Encounter for screening for malignant neoplasm of lung Savanna Kenny, Ct Imaging Procedures CT LUNG SCREEN WO IVCON COMPUTED TOMOGRAPHY THORAX LW DOSE LNG CA SCR C- Z 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 [address] [place] [address] Referral ID Status Reason Start Expiration Visits Visits Date Date Requested Authorized [id number] Pending Auto-Generat 05/30/2022 06/29/2023 1 1 Review ed Referral Additional Source Comments INFORMATION SOURCE (unrecognized section and content) DATE CREATED AUTHOR AUTHOR'S ORGANIZ ATION 04/29/2018 [facility] DATE CREATED AUTHOR AUTHOR'S ORGANIZATIO N 05/04/2018 [facility] DATE CREATED AUTHOR AUTHOR'S ORGANIZATIO N 01/05/2022 [facility] DATE CREATED AUTHOR AUTHOR'S ORGANIZATIO N 08/11/2022 [facility] DATE CREATED AUTHOR AUTHOR'S ORGANIZATIO N 11/27/2022 [facility] DATE CREATED AUTHOR AUTHOR'S ORGANIZATIO N 12/29/2022 [facility] Source Comments (unrecognized section an d content) In the event this information is protect ed by the Federal Confidentiality of Alcohol and Drug Abuse Patient Records regulatio ns: This information has been disclosed to you from records protected by Federal co nfidentiality rules ( The Federal rules restrict any use of the information to criminally investigate or prosecute any alcohol or drug abuse patient. [facility] the event this information is protected by stefano reinoso Federal Confidentiality of Alcohol and Drug Abuse Patient Records regulations: This information has been disclosed to you from records protected by Federal confid entiality rules ( The Federal rules restrict any use of th e information to criminally investigate or prosecute any alcohol or drug abuse candice ent. [facility] the event this information is protected by the Federal Confidentiality of Alcohol and Drug Abuse Patient Records regulations: This inform ation has been disclosed to you from records protected by Federal confidentiality rul es ( The Federal rules restrict any use of the in formation to criminally investigate or prosecute any alcohol or drug abuse candice ent. [facility] the event this information is protected by the Federal Confidentiality of Alcohol and Drug Abuse Patient Records regulations: This inform ation has been disclosed to you from records protected by Federal confidentiality rul es ( The Federal rules restrict any use of the in formation to criminally investigate or prosecute any alcohol or drug abuse candice ent. [facility] the event this information is protected by the Federal Confidentiality of Alcohol and Drug Abuse Patient Records regulations: This inform ation has been disclosed to you from records protected by Federal confidentiality rul es ( The Federal rules restrict any use of the in formation to criminally investigate or prosecute any alcohol or drug abuse candice ent. [facility] the event this information is protected by the Federal Confidentiality of Alcohol and Drug Abuse Patient Records regulations: This inform ation has been disclosed to you from records protected by Federal confidentiality rul es ( The Federal rules restrict any use of the in formation to criminally investigate or prosecute any alcohol or drug abuse candice ent. [facility] the event this information is protected by the Federal Confidentiality of Alcohol and Drug Abuse Patient Records regulations: This inform ation has been disclosed to you from records protected by Federal confidentiality rul es ( The Federal rules restrict any use of the in formation to criminally investigate or prosecute any alcohol or drug abuse candice ent. [facility] the event this information is protected by the Federal Confidentiality of Alcohol and Drug Abuse Patient Records regulations: This inform ation has been disclosed to you from records protected by Federal confidentiality rul es ( The Federal rules restrict any use of the in formation to criminally investigate or prosecute any alcohol or drug abuse candice ent. [facility] the event this information is protected by the Federal Confidentiality of Alcohol and Drug Abuse Patient Records regulations: This inform ation has been disclosed to you from records protected by Federal confidentiality rul es ( The Federal rules restrict any use of the in formation to criminally investigate or prosecute any alcohol or drug abuse candice ent. [facility] the event this information is protected by the Federal Confidentiality of Alcohol and Drug Abuse Patient Records regulations: This inform ation has been disclosed to you from records protected by Federal confidentiality rul es ( The Federal rules restrict any use of the in formation to criminally investigate or prosecute any alcohol or drug abuse candice ent. [facility] the event this information is protected by the Federal Confidentiality of Alcohol and Drug Abuse Patient Records regulations: This inform ation has been disclosed to you from records protected by Federal confidentiality rul es ( The Federal rules restrict any use of the in formation to criminally investigate or prosecute any alcohol or drug abuse candice ent. [facility] the event this information is protected by the Federal Confidentiality of Alcohol and Drug Abuse Patient Records regulations: This inform ation has been disclosed to you from records protected by Federal confidentiality rul es ( The Federal rules restrict any use of the in formation to criminally investigate or prosecute any alcohol or drug abuse candice ent. [facility] the event this information is protected by the Federal Confidentiality of Alcohol and Drug Abuse Patient Records regulations: This inform ation has been disclosed to you from records protected by Federal confidentiality rul es ( The Federal rules restrict any use of the in formation to criminally investigate or prosecute any alcohol or drug abuse candice ent. [facility] the event this information is protected by the Federal Confidentiality of Alcohol and Drug Abuse Patient Records regulations: This inform ation has been disclosed to you from records protected by Federal confidentiality rul es ( The Federal rules restrict any use of the in formation to criminally investigate or prosecute any alcohol or drug abuse candice ent. [facility]In the event this information is protected by the Federal Confidentiality of Alcohol and Drug Abuse Patient Records regulations: This inform ation has been disclosed to you from records protected by Federal confidentiality rul es ( The Federal rules restrict any use of the in formation to criminally investigate or prosecute any alcohol or drug abuse candice ent. [facility] the event this information is protected by the Federal Confidentiality of Alcohol and Drug Abuse Patient Records regulations: This inform ation has been disclosed to you from records protected by Federal confidentiality rul es ( The Federal rules restrict any use of the in formation to criminally investigate or prosecute any alcohol or drug abuse candice ent. [facility] the event this information is protected by the Federal Confidentiality of Alcohol and Drug Abuse Patient Records regulations: This inform ation has been disclosed to you from records protected by Federal confidentiality rul es ( The Federal rules restrict any use of the in formation to criminally investigate or prosecute any alcohol or drug abuse candice ent. [facility] the event this information is protected by the Federal Confidentiality of Alcohol and Drug Abuse Patient Records regulations: This inform ation has been disclosed to you from records protected by Federal confidentiality rul es ( The Federal rules restrict any use of the in formation to criminally investigate or prosecute any alcohol or drug abuse candice ent. [facility] the event this information is protected by the Federal Confidentiality of Alcohol and Drug Abuse Patient Records regulations: This inform ation has been disclosed to you from records protected by Federal confidentiality rul es ( The Federal rules restrict any use of the in formation to criminally investigate or prosecute any alcohol or drug abuse candice ent. [facility]In the event this information is protected by the Federal Confidentiality of Alcohol and Drug Abuse Patient Records regulations: This inform ation has been disclosed to you from records protected by Federal confidentiality rul es ( The Federal rules restrict any use of the in formation to criminally investigate or prosecute any alcohol or drug abuse candice ent. [facility]In the event this information is protected by the Federal Confidentiality of Alcohol and Drug Abuse Patient Records regulations: This inform ation has been disclosed to you from records protected by Federal confidentiality rul es ( The Federal rules restrict any use of the in formation to criminally investigate or prosecute any alcohol or drug abuse candice ent. [facility]In the event this information is protected by the Federal Confidentiality of Alcohol and Drug Abuse Patient Records regulations: This inform ation has been disclosed to you from records protected by Federal confidentiality rul es ( The Federal rules restrict any use of the in formation to criminally investigate or prosecute any alcohol or drug abuse candice ent. [facility]In the event this information is protected by the Federal Confidentiality of Alcohol and Drug Abuse Patient Records regulations: This inform ation has been disclosed to you from records protected by Federal confidentiality rul es ( The Federal rules restrict any use of the in formation to criminally investigate or prosecute any alcohol or drug abuse candice ent. [facility]In the event this information is protected by the Federal Confidentiality of Alcohol and Drug Abuse Patient Records regulations: This inform ation has been disclosed to you from records protected by Federal confidentiality rul es ( The Federal rules restrict any use of the in formation to criminally investigate or prosecute any alcohol or drug abuse candice ent. [facility]In the event this information is protected by the Federal Confidentiality of Alcohol and Drug Abuse Patient Records regulations: This inform ation has been disclosed to you from records protected by Federal confidentiality rul es ( The Federal rules restrict any use of the in formation to criminally investigate or prosecute any alcohol or drug abuse candice ent. [facility]In the event this information is protected by the Federal Confidentiality of Alcohol and Drug Abuse Patient Records regulations: This inform ation has been disclosed to you from records protected by Federal confidentiality rul es ( The Federal rules restrict any use of the in formation to criminally investigate or prosecute any alcohol or drug abuse candice ent. [facility]In the event this information is protected by the Federal Confidentiality of Alcohol and Drug Abuse Patient Records regulations: This inform ation has been disclosed to you from records protected by Federal confidentiality rul es ( The Federal rules restrict any use of the in formation to criminally investigate or prosecute any alcohol or drug abuse candice ent. [facility]In the event this information is protected by the Federal Confidentiality of Alcohol and Drug Abuse Patient Records regulations: This inform ation has been disclosed to you from records protected by Federal confidentiality rul es ( The Federal rules restrict any use of the in formation to criminally investigate or prosecute any alcohol or drug abuse candice ent. [facility]In the event this information is protected by the Federal Confidentiality of Alcohol and Drug Abuse Patient Records regulations: This inform ation has been disclosed to you from records protected by Federal confidentiality rul es ( The Federal rules restrict any use of the in formation to criminally investigate or prosecute any alcohol or drug abuse candice ent. [facility]In the event this information is protected by the Federal Confidentiality of Alcohol and Drug Abuse Patient Records regulations: This inform ation has been disclosed to you from records protected by Federal confidentiality rul es ( The Federal rules restrict any use of the in formation to criminally investigate or prosecute any alcohol or drug abuse candice ent. [facility]In the event this information is protected by the Federal Confidentiality of Alcohol and Drug Abuse Patient Records regulations: This inform ation has been disclosed to you from records protected by Federal confidentiality rul es ( The Federal rules restrict any use of the in formation to criminally investigate or prosecute any alcohol or drug abuse candice ent. [facility]In the event this information is protected by the Federal Confidentiality of Alcohol and Drug Abuse Patient Records regulations: This inform ation has been disclosed to you from records protected by Federal confidentiality rul es ( The Federal rules restrict any use of the in formation to criminally investigate or prosecute any alcohol or drug abuse candice ent. [facility]In the event this information is protected by the Federal Confidentiality of Alcohol and Drug Abuse Patient Records regulations: This inform ation has been disclosed to you from records protected by Federal confidentiality rul es ( The Federal rules restrict any use of the in formation to criminally investigate or prosecute any alcohol or drug abuse candice ent. [facility]In the event this information is protected by the Federal Confidentiality of Alcohol and Drug Abuse Patient Records regulations: This inform ation has been disclosed to you from records protected by Federal confidentiality rul es ( The Federal rules restrict any use of the in formation to criminally investigate or prosecute any alcohol or drug abuse candice ent. [facility] HospitalIn the event this information is protected by the [facility] Confidentiality of Alcohol and Drug Abuse Patient Records regulations: This inform ation has been disclosed to you from records protected by Federal confidentiality rul es ( The Federal rules restrict any use of the in formation to criminally investigate or prosecute any alcohol or drug abuse candice [facility] Reason for Visit (unrecognized section a nd content) Reason Onset Date Comments Refill Request 03/01/2022 Reason Comments Established Patient Follow-Up Reason Onset Date Comments Refill Request 03/16/2022 Reason Onset Date Comments Refill Request 04/03/2022 Reason Comments 6 month check increased SOB Reason Onset Date Comments Refill Request 05/07/2022 Reason Comments Hospital Follow Up Reason Comments Results Reason Comments Refill Request Reason Comments Orders Reason Comments Aerochamber spacer Reason Comments Spirometry Specialty Diagnoses / Procedures Referred By Contact Refer red To Contact [facility] Diagnoses Dyspnea on exertion Savanna Kenny Respiratory [place] Procedures SPIROMETRY - BASELINE AND POST DILATOR BRNCDILAT RSPSE SPMTRY PRE&POST-BRNCDILAT ADMN Crystal, Z 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 [address] [place] [address] [place] [address] Referral ID Status Reason Start Date Expiration Date Visits V isits Requested Authorized [id number] Closed Auto-Generate 03/13/2022 04/12/2023 1 1 d Referral Reason Comments New Patient Shortness of Breath dyspnea on exertion Reason Onset Date Comments Refill Request 06/14/2022 Reason Comments Orders Reason Comments Appointment Reason Onset Date Comments Refill Request 07/20/2022 Reason Comments Follow Up Specialty Diagnoses / Procedures Referred By Contact Refer red To Contact Pulmonary and Critical Diagnoses Dyspnea on exertion Savanna Kenny Care Medicine Procedures CONSULT TO PULM/CRITICAL CARE OFFICE/OUTPATIENT [facility] 60-74 MINUTES APRN. CrystalFISH HATCHERY WORKER [address] [place] [id number] Referral ID Status Reason Start Date Expiration Date Visits V isits Requested Authorized [id number] Closed PCP Requested 03/13/2022 03/13/2023 1 1 Referral Reason Comments Patient Update Reason Comments F/U 3 Month Reason Comments Mouth/Lip Problem Reason Comments Pain Mouth pain x 1 week Reason Comments Patient Question Reason Comments Established Patient Specialty Diagnoses / Procedures Referred By Contact Refer red To Contact Vascular Surgery Diagnoses PAD (peripheral artery disease) ([facility]) Ulises Hermosillo MD [address] Procedures CONSULT TO VASCULAR SURGERY OFFICE/OUTPATIENT [facility] 60-74 MINUTES [address] [facility] [address] [place] [address] [address] [place] [address] Referral ID Status Reason Start Date Expiration Date Visits V isits Requested Authorized [id number] Closed PCP Requested 05/11/2022 05/11/2023 1 1 Referral Reason Comments New Patient Hemoptysis Reason Comments Behavioral Health Social Work Care Teams (unrecognized section and con tent) Amusement Park Ride Mechanic Relationship Specialty Start Date End Date Ulises Hermosillo MD PCP - General Internal Medicine 01/25/16 [address] [place] [address] Amusement Park Ride Mechanic Relationship Specialty Start Date End Date Ulises Hermosillo MD PCP - General Internal Medicine 01/25/16 [address] [place], [place] [address] Amusement Park Ride Mechanic Relationship Specialty Start Date End Date Ulises Hermosillo MD PCP - General Internal Medicine 01/25/16 [address] [place] [address] Amusement Park Ride Mechanic Relationship Specialty Start Date End Date Ulises Hermosillo MD PCP - General Internal Medicine 01/25/16 [address] [facility] [place] [address] Amusement Park Ride Mechanic Relationship Specialty Start Date End Date Ulises Hermosillo MD PCP - General Internal Medicine 01/25/16 [address] [place] [address] Amusement Park Ride Mechanic Relationship Specialty Start Date End Date Ulises Hermosillo MD PCP - General Internal Medicine 01/25/16 [address] [place] [address] Amusement Park Ride Mechanic Relationship Specialty Start Date End Date Ulises Hermosillo MD PCP - General Internal Medicine 01/25/161739 [place] [address] Amusement Park Ride Mechanic Relationship Specialty Start Date End Date Ulises Hermosillo MD PCP - General Internal Medicine 01/25/16 [address] [place] [address] Amusement Park Ride Mechanic Relationship Specialty Start Date End Date Ulises Hermosillo MD PCP - General Internal Medicine 01/25/16 [address] [place] [address] Amusement Park Ride Mechanic Relationship Specialty Start Date End Date Ulises Hermosillo MD PCP - General Internal Medicine 01/25/16 [address] [place] [address] Amusement Park Ride Mechanic Relationship Specialty Start Date End Date Ulises Hermosillo MD PCP - General Internal Medicine 01/25/16 [address] [place] [address] Amusement Park Ride Mechanic Relationship Specialty Start Date End Date Ulises Hermosillo MD PCP - General Internal Medicine 01/25/16 [address] [place] [address] Amusement Park Ride Mechanic Relationship Specialty Start Date End Date Ulises Hermosillo MD PCP - General Internal Medicine 01/25/16 [address] [facility] [place] [place] [address] Amusement Park Ride Mechanic Relationship Specialty Start Date End Date Ulises Hermosillo MD PCP - General Internal Medicine 01/25/16 [address] [facility] [place] [place] [address] Amusement Park Ride Mechanic Relationship Specialty Start Date End Date Ulises Hermosillo MD PCP - General Internal Medicine 01/25/16 [address] [facility] [place] [place] [address] Amusement Park Ride Mechanic Relationship Specialty Start Date End Date Ulises Hermosillo MD PCP - General Internal Medicine 01/25/16 [address] [facility] [place] [place] [address] Amusement Park Ride Mechanic Relationship Specialty Start Date End Date Ulises Hermosillo MD PCP - General Internal Medicine 01/25/16 [address] [facility] [place] [address] Amusement Park Ride Mechanic Relationship Specialty Start Date End Date Ulises Hermosillo MD PCP - General Internal Medicine 01/25/16 [address] [facility] [place] [address] Amusement Park Ride Mechanic Relationship Specialty Start Date End Date Ulises Hermosillo MD PCP - General Internal Medicine 01/25/16 [address] [facility] [place] [address] Amusement Park Ride Mechanic Relationship Specialty Start Date End Date Ulises Hermosillo MD PCP - General Internal Medicine 01/25/16 [address] [facility] [place] [address] Amusement Park Ride Mechanic Relationship Specialty Start Date End Date Ulises Hermosillo MD PCP - General Internal Medicine 01/25/16 [address] [facility] [place] [address] Amusement Park Ride Mechanic Relationship Specialty Start Date End Date Ulises Hermosillo MD PCP - General Internal Medicine 01/25/16 [address] [place] [address] Care Team (unrecognized section and cont ent) Personnel Name: ULISES HERMOSILLO MD Address: Address: [address] [place] [id number]- Personnel Name: ULISES HERMOSILLO MD Address: Address: [address] [place] [address]- Care Team Personnel Name: ULISES HERMOSILLO MD Member Role: Primary Care Physician Address: Address: [address] [place] [address]- Name: Yolanda Decker RN Position: RN Member Role: RN Name: ZINA GLOVER DO Position: ED Physician Address: Address: [address] [facility] [place] [address]- Name: BRIAN TRINIDAD DO Position: Resident Member Role: ED Physician Address: Address: [address] [place] [address] ED Resident [address] Care Team Related Persons Name: MELY SERNA Address: Home [address] [place] [address] [place] Name: MELY SERNA Address: Home [address] [place] [address] [place] Name: MELY SERNA Address: Home [address] [place] [address] [place] Name: MELY SERNA Address: Home [address] [place] [address] [place] Name: MELY SERNA Address: Home [address] [place] [address] [place] Name: MELY SERNA Address: Home [address] [place] [address] [place] Name: MELY SERNA Address: Home [address] Care Team Personnel Name: ULISES HERMOSILLO MD Member Role: Primary Care Physician Address: Address: [address] [place] [address]- [place] Name: MD JOSE ROBERTO COMBS MD Position: ED Physician Member Role: ED Physician Address: Address: [facility] [address] [place] [address]- Care Team Related Persons Name: MELY SERNA Address: Home [address] [place] [address] [place] Name: MELY SERNA Address: Home [address] [place] [address] [place] Name: MELY SERNA Address: Home [address] [place] [address] [place] Name: MELY SERNA Address: Home [address] Name: MELY SERNA Address: Home [address] Name: MELY SERNA Address: Home [address] [place] [address] [place] Name: CRIS SERNAFER Address: Home [address] FOR RECORDS PERTAINING TO PATIENTS WHO ARE OR HAVE BEEN ENROLLED IN A CHEMICAL DEPENDENCY/SUBSTANCE ABUSE PROGRAM, SOME INFORMATION MAY BE OMITTED. This clinical summary was aggregated from multiple sources. Caution should be exercised in using it in the provision of clinical care. This summary normalizes information from multiple sources, and as a consequence, information in this document may materially change the coding, format and clinical context of patient data. In addition, data may be omittedin some cases. CLINICAL DECISIONS SHOULD BE BASED ON THE PRIMARY CLINICAL RECORDS. [employer] provides no warranty or guarantee of the accuracy or completeness of information in this document.
--- NOTE | 2023-01-02 18:50 | EKG12_ITS ---
Test Reason : CP Blood Pressure : / mmHG Vent. Rate : 090 BPM Atrial Rate : 090 BPM P-R Int : 152 ms QRS Dur : 078 ms QT Int : 364 ms P-R-T Axes : 079 069 073 degrees QTc Int : 445 ms Normal sinus rhythm Normal ECG Confirmed by TRUMAN CASTILLO, TIFFANY ([id number]), research editor ADDY RIDDLE ([id number]) on 01/04/2023 12:39:17 PM Referred By: JAMILA Confirmed By:TIFFANY LAUGHLIN MD
--- NOTE | 2023-01-02 18:51 | EDS_ITS ---
HPI History of Present Illness Chief Complaint: Chest Pain Narrative Narrative: 67-year-old female past medical history of chronic obstructive pulmonary disease, hypertension, presents with multiple somatic complaints including chest pain that began at 10:00 this morning, at least 9 hours ago. She states she awoke this morning at around 9:00 in the morning and at 10:00 began having chest pain. She is nondescript with this. She also states that she has been having problems breathing with dyspnea on exertion additionally for weeks. She is a smoker. Quite frankly, she states that she is really here because she wants detox from alcohol. She drinks at least 12 beers a day, and her last drink being this morning after she got up at around 10:00 she states she had a few beers . She last went through rehabilitation years ago, but feels like she needs detox and rehab today because she recently had her dog , and she lost her brother to arson and another relative to fentanyl overdose so she feels like she needs to get clean . PFSH PFSH Medical History Alcohol abuse Anxiety and depression COPD (chronic obstructive pulmonary disease) HLD (hyperlipidemia) Hypertension Tobacco use Home Medications albuterol sulfate 90 mcg/actuation aerosol inhaler (Ventolin HFA) 2 puff inhalation Q2H PRN Wheezing ##1 05/25/14 [Rx Last Taken 02/21/18] Omeprazole [Prilosec] 40 mg PO DAILY ACID REFLUX 02/01/17 [History Last Taken 02/21/18] metoprolol tartrate 25 mg tablet 25 mg PO BID BLOOD PRESSURE 02/01/17 [History Last Taken 02/21/18] paroxetine HCl 30 mg tablet (Paxil) 30 mg PO DAILY MENTAL HEALTH 02/01/17 [History Last Taken 02/21/18] trazodone 100 mg tablet 100 mg PO QHS SLEEP 02/01/17 [History Last Taken Unknown] amlodipine 5 mg tablet 5 mg PO DAILY BLOOD PRESSURE 07/29/17 [History Last Taken 02/21/18] hydroxyzine pamoate 50 mg capsule (Vistaril) 50 mg PO TID PRN PRN Anxiety 07/29/17 [History Last Taken Unknown] lisinopril 40 mg tablet 40 mg PO DAILY BLOOD PRESSURE 07/29/17 [History Last Taken 02/21/18] Allergy/AdvReac Type Severity Reaction Status Date / Time No Known Allergies Allergy Verified 07/29/17 15:15 Family History (Updated 01/02/23 @ 21:[address] Linda Luque MD) Mother Liver cancer Father Lung cancer Family History no significant family his Surgical History (Updated 01/02/23 @ 21:[address] Linda Luque MD) History of cervical spinal surgery History of tonsillectomy S/P appendectomy S/P cholecystectomy Social History (Updated 01/02/23 @ 21:[address] Linda Luque MD) household members: spouse Smoking Status: Current every day smoker tobacco type: cigarettes alcohol intake: current alcohol intake frequency: 3 or more drinks per day details: 12-14 beers daily. substance use type: does not use ROS ROS ED ROS Narrative Constitutional: No fever, no chills. HEENT: No sore throat. No neck pain. No loss of vision. No rhinorrhea. Cardiovascular: Positive chest pain. No palpitations. No pedal edema. Respiratory: No cough, positive increasing dyspnea on exertion and shortness of breath. Abdominal: No abdominal pain. No nausea. No vomiting. Genitourinary: No dysuria. No hematuria. Musculoskeletal: No myalgias. No arthralgias. Neurologic: No headaches. No dizziness. No lightheadedness. Skin: No rash. No change in color. Psychiatric: No depression. No anxiety. EXAM Physical Exam Narrative Exam Narrative: Afebrile. Vital signs noted. HEENT: Normocephalic. Atraumatic. PERRL, EOMI. Neck soft and supple. No point tenderness or step off. Cardiovascular: Regular rate and rhythm. No murmurs, rubs, or gallops appreciated. Respiratory: No tachypnea. Lungs clear to auscultation bilaterally. No wheezing or accessory muscle use. This was even after patient ambulated back from the bathroom. Gastrointestinal: Abdomen soft, nontender, with normoactive bowel sounds. No rebound or guarding. Neurological: Awake. Alert. Nonfocal, nonlateralizing. Skin: No rash. Normal color. No pallor. Musculoskeletal: No pedal edema. Full range of motion extremities. Const Vital Signs: 01/02/23 17:54 01/02/23 18:52 01/02/23 19:00 Temperature 97.6 F L 98.5 F Temperature Source Temporal Temporal Pulse Rate 99 90 Respiratory Rate 16 18 Respiratory Effort Labored Accessory Muscle Use Blood Pressure 127/69 H 113/72 Blood Pressure Mean 88 85 Pulse Ox 95 Oxygen Delivery Method Room Air Room Air Room Air Oxygen Flow Rate (L/min) 01/02/23 19:18 01/02/23 19:25 01/02/23 19:25 Temperature Temperature Source Pulse Rate 101 H Respiratory Rate 17 Respiratory Effort Blood Pressure 114/71 Blood Pressure Mean 85 Pulse Ox 91 87 95 Oxygen Delivery Method Room Air Room Air Nasal Cannula Oxygen Flow Rate (L/min) 2 01/02/23 20:00 01/02/23 21:00 Temperature Temperature Source Pulse Rate 95 94 Respiratory Rate 23 H 22 H Respiratory Effort Blood Pressure 122/88 H Blood Pressure Mean 99 Pulse Ox 98 95 Oxygen Delivery Method Room Air Nasal Cannula Oxygen Flow Rate (L/min) 2 MDM MDM MDM Narrative Medical decision making narrative: Medical screening labs were obtained. EKG was obtained to rule out STEMI, and interpreted by myself, and it demonstrates normal sinus rhythm at 90 bpm without ectopy or acute ST changes. No STEMI. I will obtain a troponin, which will be greater than a 6-hour troponin for her chest pain as medical screening labs. I will also obtain a CBC, CMP, UA, and lipase as she is an alcoholic and I will rule out pancreatitis as medical screening. I will also obtain alcohol level and urine for drugs of abuse. I do not feel test is indicated as she is 67 years old and postmenopausal. I do feel that if she can be ruled out with a negative troponin and that her medical screening labs are negative, that she could be admitted for detox. I reviewed her laboratory work. She has a normal white count of 7.2, hemoglobin normal at 14.0, platelet count elevated at 478 which I think is nonspecific. Urinalysis is negative for infection, negative ketones. CMP is remarkable for chloride of 109. High-sensitivity troponin 17. LFTs are normal. Lipase is also normal in the 200s. Blood alcohol level is slightly elevated at 112. Chest x-ray interpreted by myself shows no evidence of acute pneumonia or pneumothorax. I reviewed the radiology report which confirms my interpretation. EKG interpreted by myself demonstrates normal sinus rhythm at 90 bpm without ectopy or acute ST changes. Given that she has had chest pain all day with a negative troponin and EKG which does not show evidence of STEMI, I do feel that she is medically cleared for detox. She is currently resting comfortably. Of note, she was placed on 2 L of nasal cannula oxygen because she usually wears 2 L at home and she had a brief episode of hypoxia because she was not on her home oxygen. Patient will be discussed with Dr. Luque for admission for detox from alcohol. Patient is in stable condition. Lab Data Attestation: I reviewed the patient's lab results. Labs: Laboratory Results - last 24 hr 01/02/23 01/02/23 01/02/23 18:30 18:30 19:17 WBC 7.2 RBC 4.42 Hgb 14.0 Hct 43.9 MCV 99.3 H MCH 31.7 MCHC 31.9 L RDW Std Deviation 56.6 H RDW Coeff of Ni 15.6 H Plt Count 478 H MPV 9.8 Immature Gran % (Auto) 0.400 Neut % (Auto) 50.1 Lymph % (Auto) 37.2 [place] % (Auto) 9.6 Eos % (Auto) 1.4 Baso % (Auto) 1.3 H Absolute Neuts (auto) 3.6 Absolute Lymphs (auto) 2.67 Nucleated RBC % 0 Sodium Potassium Chloride Carbon Dioxide Anion Gap BUN Creatinine Estim Creat Clear Calc Est GFR (MDRD) Af Amer Est GFR (MDRD) Non-Af BUN/Creatinine Ratio Glucose Calcium Total Bilirubin AST ALT Alkaline Phosphatase Troponin I High Sens Total Protein Albumin Globulin Albumin/Globulin Ratio Lipase Urine Color Yellow Urine Clarity Clear Urine pH 6.0 Ur Specific [place] 1.005 Urine Protein Negative Urine Glucose (UA) Normal Urine Ketones Negative Urine Occult Blood Negative Urine Nitrite Negative Urine Bilirubin Negative Urine Urobilinogen Normal Ur Leukocyte Esterase Negative Urine RBC 0 SEEN Urine WBC 0 SEEN Ur Squamous Epith Cells 0-5 SEEN Urine Bacteria 0 SEEN Urine Mucus 0 SEEN Urine Opiates Screen NEGATIVE Urine Methadone Screen NEGATIVE Ur Barbiturates Screen NEGATIVE Ur Phencyclidine Scrn NEGATIVE Ur Amphetamines Screen NEGATIVE MDMA (Ecstasy) Screen NEGATIVE U Benzodiazepines Scrn NEGATIVE Urine Cocaine Screen NEGATIVE U Cannabinoids Screen NEGATIVE Ur Drug Screen Comment Ethyl Alcohol 01/02/23 01/02/23 19:17 19:17 WBC RBC Hgb Hct MCV MCH MCHC RDW Std Deviation RDW Coeff of Ni Plt Count MPV Immature Gran % (Auto) Neut % (Auto) Lymph % (Auto) [place] % (Auto) Eos % (Auto) Baso % (Auto) Absolute Neuts (auto) Absolute Lymphs (auto) Nucleated RBC % Sodium 143 Potassium 3.6 Chloride 109 H Carbon Dioxide 27.0 Anion Gap 7 BUN 11 Creatinine 0.80 Estim Creat Clear Calc 61.40 Est GFR (MDRD) Af Amer 91 Est GFR (MDRD) Non-Af 76 BUN/Creatinine Ratio 13.7 Glucose 76 Calcium 8.5 Total Bilirubin 0.10 L AST 17 ALT 24 Alkaline Phosphatase 63 Troponin I High Sens 17 Total Protein 7.3 Albumin 3.4 Globulin 3.9 Albumin/Globulin Ratio 0.9 Lipase 235 Urine Color Urine Clarity Urine pH Ur Specific [place] Urine Protein Urine Glucose (UA) Urine Ketones Urine Occult Blood Urine Nitrite Urine Bilirubin Urine Urobilinogen Ur Leukocyte Esterase Urine RBC Urine WBC Ur Squamous Epith Cells Urine Bacteria Urine Mucus Urine Opiates Screen Urine Methadone Screen Ur Barbiturates Screen Ur Phencyclidine Scrn Ur Amphetamines Screen MDMA (Ecstasy) Screen U Benzodiazepines Scrn Urine Cocaine Screen U Cannabinoids Screen Ur Drug Screen Comment Ethyl Alcohol 112.0 Radiography Diagnostic Testing: Clinical Impression(s) from Imaging Studies Chest X-Ray 01/02/23 19:00 IMPRESSION: COPD. No acute cardiopulmonary pathology Electronically Signed: Dylan Sethi MD at 21:10 EST Reading Location ID and State: [facility] / [place] , Service support , Discharge Plan Dx/Rx/DC Orders Clinical Impression: Chronic obstructive lung disease, Alcohol intoxication, Desire for detoxification, Chest pain Disposition Disposition: Acute Care [facility]
--- NOTE | 2023-01-02 19:00 | RAD_ITS ---
STUDY: X-RAY CHEST REASON FOR EXAM: Female, 67 years old. shortness of breath TECHNIQUE: AP portable COMPARISON: February 21, 2018 FINDINGS: Lungs are hyperinflated but clear. There is no demonstrated pleural abnormality. Normal size heart. Normal mediastinum and estrellita. Normal visualized pulmonary arteries. Mildly calcified aortic arch and descending thoracic aorta. Normal visualized thoracic spine. Normal visualized ribs, clavicles, and shoulders. Postsurgical changes status post cervical fusion There is no demonstrated abnormality of the visualized soft tissue structures of the upper abdomen. RAD/Chest 1 View (Portable) IMPRESSION: COPD. No acute cardiopulmonary pathology Electronically Signed: Dylan Sethi MD at 21:10 EST ,
--- OUTSIDE RECORDS SUMMARY | 2023-01-02 19:04 | XMS RPT_ITS | CCD ---
:1955 Author Organization [facility] Care Team Providers Name Role Phone PROVIDER, UNKNOWN Unavailable Unavailable No, PCP Unavailable Unavailable Qasim Martinez Unavailable Ulises Caruso MD Primary Care Provider MODESTA CASTILLO, DR ALDRICH Primary Care Physician Ulises Hermosillo MD Primary Care Provider ULISES HERMOSILLO Primary Care Unavailable TRACY RAMIRES Referring Unavailable ULISES HERMOSILLO Primary Care Unavailable TRACY RAMIRES Referring Unavailable ULISES HERMOSILLO Primary Care Unavailable PROVIDER, UNKNOWN Referring Unavailable ULISES HERMOSILLO Primary Care Unavailable Ulises Hermosillo MD Primary Care Provider EMMANUEL KILLIAN Attending Unavailable MODESTA CASTILLO., DR. ALDRICH Primary Care Unavailable RUPESH CASTILLO, BETINA Post Consulting Unavailable ZINA GLOVER Attending Unavailable MODESTA CASTILLO., DR. ALDRICH Primary Care Unavailable LAURYN CASTILLO, JOSE ROBERTO Hopson Attending Unavailable MODESTA CASTILLO., DR. ALDRICH Primary Care Unavailable RUPESH CASTILLO, BETINA Post Admitting Unavailable MODESTA CASTILLO., DR. ALDRICH Primary Care Unavailable LAVERNE SHELLEY MD Attending Unavailable ULISES HERMOSILLO Primary Care Unavailable GURMEET, OLY Attending Unavailable ULISES HERMOSILLO Attending Unavailable ULISES HERMOSILLO Primary Care Unavailable TAWNY SELF Referring Unavailable ULISES HERMOSILLO Primary Care Unavailable TAWNY SELF Attending Unavailable ULISES HERMOSILLO Referring Unavailable HERMOSILLO, KAYLEEN Primary Care Unavailable SALIMA ASHER Attending Unavailable HERMOSILLO, KAYLEEN Primary Care Unavailable SALIMA ASHER Referring Unavailable HERMOSILLO, KAYLEEN Primary Care Unavailable HERMOSILLO, KAYLEEN Primary Care Unavailable ZOYASAVANNA LUGO Attending Unavailable SALIMA ASHER Referring Unavailable HERMOSILLO, KAYLEEN Primary Care Unavailable HERMOSILLO, KAYLEEN Primary Care Unavailable OLDER, OLY Attending Unavailable HERMOSILLO, KAYLEEN Primary Care Unavailable ZOYASAVANNA Referring Unavailable HERMOSILLO, KAYLEEN Primary Care Unavailable ZOYA, SAVANNA GUILLEN Referring Unavailable HERMOSILLO, KAYLEEN Primary Care Unavailable FADY, SORENIMAN A Referring Unavailable HERMOSILLO, KAYLEEN Primary Care Unavailable ZOYASAVANNA LUGO Attending Unavailable ZOYA, SAVANNA GUILLEN Referring Unavailable HERMOSILLO, KAYLEEN Primary Care Unavailable FADY, NARIMAN A Attending Unavailable ZOYASAVANNA LUGO Referring Unavailable KEYLATRACY E Attending Unavailable KEYLATRACY MCCANN Referring Unavailable HERMOSILLO, KAYLEEN Primary Care Unavailable HERMOSILLO, KAYLEEN Primary Care Unavailable HERMOSILLO, KAYLEEN Attending Unavailable HERMOSILLO, KAYLEEN Referring Unavailable KEYLA, TRACY E Referring Unavailable HERMOSILLO, KAYLEEN Primary Care Unavailable Medications Current Medications Medication Drug Class(es) [...] Refil l(s), 05/08/22 11:02: 00 EDT, Pharmacy: [facility]/pharmacy #[id number], 165.1, cm, 04/12 01/02 9:53:00 [...] 0 Refill(s), 05/08/22 11:01:00 EDT, Pharmacy: [facility] #[id number], 165.1, cm, 05/02/22 9:53:00 EDT, Height [...] 10.2 gra m(s), 0 Refill(s), Phar randell: [facility]/pharmacy #[id number], 165.1, cm, 04/12 01/02 9:53:00 [...] to treat chronic pain (ICD-10 code G89.18). [id number] 200 actuat albuterol 0.09 mg/actuat metered dose [...] vider) Start: 07-23-2022 take 2 puff(s) by inhalation budesonide- formoterol (SYMBICORT) twice daily 160-4.5 mcg/actuatio n inhaler Inhale 2 Puffs as instructed twice daily. 1 Each 0 07/23/2022 Ac tive Start: 05-25-2022 take 2 puff(s) by inhalation budesonide- formoterol (SYMBICORT) End: 06-06-2022 twice daily 160-4.5 mcg/actuatio n inhaler Inhale 2 Puffs as instructed twice daily. 1 Each 0 05/25/2022 Discontinued Start: 05-25-2022 take 2 puff(s) by inhalation budesonide- formoterol (SYMBICORT) twice daily 160-4.5 mcg/actuatio n inhaler Inhale 2 Puffs as instructed twice daily. 1 Each 0 05/25/2022 Ac tive Start: 05-05-2022 take 2 puff(s) by inhalation SYMBICORT 1 60-4.5 mcg/actuation End: 05-25-2022 twice daily inhaler Inhale 2 Puf fs as instructed twice daily. 0 05/0505/25/2022 Discontinued [...] Take 1 tablet by mouth once daily. vmulfdmjgfv-wlzedtxsm-xrjaqequ (TRELEGY ELLIPTA) 200-62.5-25 mcg inhalation powder Start: [...] Place End: 05-11-2022 1 Lozenge between ch [place] and gum as needed. 168 Lozenge 2 10/19/2021 Discontinued Comment on above: Apply 1 Patch as directed ev thomas [address] 1 Lozenge between pam k and gum as needed. nystatin 110056 unt/ml oral suspension Polyene Antifungal Start: nystatin [...] Recurrent major depression in partial remissi on (HCC) Take 2 tablets by mout h daily at bedtim e. 60 tablet 5 12/14/2022 Acti ve Start: 11-21-2021 take 2 tablets by mouth once traZODone ( DESYREL) 100 mg tablet End: 07-20-2022 daily at bedtime Indications: Recurre nt major depression in partia l remission (HCC) Take 2 tablets by mouth daily at [...] atherosclerosis; Translations: 1 [Atherosclerotic heart disease of [place] coronary artery without angina pectoris] Disorders of [...] Hemoptysis; Episodic (1 source) Translations: [Hemoptysis] Other lower respiratory disease Hemoptysis; Onset: Episodic (1 source) Translations: [Hemoptysis] 3 Other upper respiratory disease Seasonal allergy; Onset: [...] Test Name Value Interpretation Reference Range Facility [address] on 01-01-2023 Alpha 1 antitrypsin [Mass/Vol] 192 mg/dL Normal 90-200 [facility] Comment on above: Order Comment: Specimen Type : BLOOD SPECIMENOrdering Facility: [facility] Address: [address] [place] [address] Performed By: #### 1825-9 ## ##[facility] LABCLIA [id number] [place] [address] [place] CBC W Auto Differential panel (Bld) on 01-01-2023 Basophils (Bld) [#/Vol] 0.07 10*3/uL Normal <0.11 [facility] [place] [facility] Comment on above: Order Comment: Specimen Type : BLOOD SPECIMENOrdering Facility: [facility] Address: [address] [place] [address] Performed By: #### 36371-4 # ###[facility] LABCLIA [id number] [place] [address] [place] Basophils/100 WBC (Bld) 1.0 % Normal [facility] [place] [facility] Comment on above: Order Comment: Specimen Type : BLOOD SPECIMENOrdering Facility: [facility] Address: [address] [place], [place] [address] Performed By: #### 16436-5 # ###[facility] LABCLIA [id number] [place] [address] [place] Differential cell count method Nom (Bld) Auto Normal [facility] Comment on above: Order Comment: Specimen Type : BLOOD SPECIMENOrdering Facility: [facility] Address: [address] Performed By: #### 84839-5 # ###[facility] LABCLIA [id number] [place] [address] [place] Eosinophils (Bld) [#/Vol] 0.07 10*3/uL Normal <0.46 [facility] Comment on above: Order Comment: Specimen Type : BLOOD SPECIMENOrdering Facility: [facility] Address: [address] Performed By: #### 90567-3 # ###[facility] LABCLIA [id number] [place] [address] [place] Eosinophils/100 WBC (Bld) 1.0 % Normal [facility] Comment on above: Order Comment: Specimen Type : BLOOD SPECIMENOrdering Facility: [facility] Address: [address] [place], [place] [id number] Performed By: #### 58716-2 # ###[facility] LABCLIA [id number] [place] [address] [place] Erythrocyte distribution width (RBC) 15.8 % High 11.5 -15.0 [facility] [Ratio] Comment on above: Order Comment: Specimen Type : BLOOD SPECIMENOrdering Facility: [facility] Address: [address] [place], [place] [address] Performed By: #### 09942-0 # ###[facility] LABCLIA [id number] [place] [address] [place] Hematocrit (Bld) [Volume fraction] 44.4 % Normal 36.0-4 6.0 [facility] Comment on above: Order Comment: Specimen Type : BLOOD SPECIMENOrdering Facility: [facility] Address: [address] [place] [address] Performed By: #### 62849-9 # ###[facility] LABIA [id number] [place] [address] [place] Hemoglobin (Bld) [Mass/Vol] 14.1 g/dL Normal 11.5-15.5 [facility] Comment on above: Order Comment: Specimen Type : BLOOD SPECIMENOrdering Facility: [facility] Address: [address] [place] [address] Performed By: #### 46583-5 # ###[facility] LABIA [id number] [place] [address] [place] Immature granulocytes (Bld) [#/Vol] 10*3/uL Normal <0.10 [facility] Comment on above: Order Comment: Specimen Type : BLOOD SPECIMENOrdering Facility: [facility] Address: [address] [place] [address] Performed By: #### 33232-1 # ###[facility] LABIA [id number] [place] [address] [place] Immature granulocytes/100 WBC (Bld) 0.3 % Normal [facility] Comment on above: Order Comment: Specimen Type : BLOOD SPECIMENOrdering Facility: [facility] Address: [address] [place], [place] [address] Performed By: #### 98684-9 # ###[facility] LABIA [id number] [place] [address] [place] Lymphocytes (Bld) [#/Vol] 1.67 10*3/uL Normal 1.00-4.00 [facility] Comment on above: Order Comment: Specimen Type : BLOOD SPECIMENOrdering Facility: [facility] Address: [address] Performed By: #### 40464-3 # ###[facility] LABCLIA [id number] [place] [address] [place] Lymphocytes/100 WBC (Bld) 23.3 % Normal [facility] Comment on above: Order Comment: Specimen Type : BLOOD SPECIMENOrdering Facility: [facility] Address: [address] Performed By: #### 58763-3 # ###[facility] LABCLIA [id number] [place] [address] [place] MCH (RBC) [Entitic mass] 32.0 pg Normal 26.0-34.0 [facility] Comment on above: Order Comment: Specimen Type : BLOOD SPECIMENOrdering Facility: [facility] Address: [address] Performed By: #### 96630-1 # ###[facility] LABCLIA [id number] [place] [address] [place] MCHC (RBC) [Mass/Vol] 31.8 g/dL Normal 30.5-36.0 [facility] Comment on above: Order Comment: Specimen Type : BLOOD SPECIMENOrdering Facility: [facility] Address: [address] [place] [address] Performed By: #### 41596-7 # ###[facility] LABCLIA [id number] [place] [address] [place] MCV (RBC) [Entitic vol] 100.9 fL High 80.0-100.0 [facility] [place] [facility] Comment on above: Order Comment: Specimen Type : BLOOD SPECIMENOrdering Facility: [facility] Address: [address] Performed By: #### 28805-4 # ###[facility] LABCLIA [id number] [place] [address] [place] Monocytes (Bld) [#/Vol] 0.91 10*3/uL High <0.87 [facility] [place] [facility] Comment on above: Order Comment: Specimen Type : BLOOD SPECIMENOrdering Facility: [facility] Address: [address] [place] [address] Performed By: #### 85208-6 # ###[facility] LABCLIA [id number] [place] [address] [place] Monocytes/100 WBC (Bld) 12.7 % Normal [facility] [place] [facility] Comment on above: Order Comment: Specimen Type : BLOOD SPECIMENOrdering Facility: [facility] Address: [address] [place] [address] Performed By: #### 76210-9 # ###[facility] LABCLIA [id number] [place] [address] [place] Neutrophils (Bld) [#/Vol] 4.44 10*3/uL Normal 1.45-7.50 [facility] Comment on above: Order Comment: Specimen Type : BLOOD SPECIMENOrdering Facility: [facility] Address: [address] [place], [place] [address] Performed By: #### 86532-7 # ###[facility] LABCLIA [id number] [place] [address] [place] Neutrophils/100 WBC (Bld) 61.7 % Normal [facility] Comment on above: Order Comment: Specimen Type : BLOOD SPECIMENOrdering Facility: [facility] Address: [address] [place], [place] [address] Performed By: #### 02754-2 # ###[facility] LABCLIA [id number] [place] [address] [place] Nucleated RBC (Bld) [#/Vol] 10*3/uL Normal <0.01 [facility] Comment on above: Order Comment: Specimen Type : BLOOD SPECIMENOrdering Facility: [facility] Address: [address] Performed By: #### 35944-6 # ###[facility] LABIA [id number] [place] [address] [place] Nucleated RBC/100 WBC (Bld) [Ratio] 0.0 /100 WBC Normal [facility] Comment on above: Order Comment: Specimen Type : BLOOD SPECIMENOrdering Facility: [facility] Address: [address] Performed By: #### 47641-0 # ###[facility] LABIA [id number] [place] [address] [place] Platelet mean volume (Bld) 10.1 fL Normal 9.0-12.7 [facility] [Entitic vol] Comment on above: Order Comment: Specimen Type : BLOOD SPECIMENOrdering Facility: [facility] Address: [address] [place], [place] [address] Performed By: #### 91025-5 # ###[facility] LABIA [id number] [place] [address] [place] Platelets (Bld) [#/Vol] 439 10*3/uL High 150-[address] [facility] Comment on above: Order Comment: Specimen Type : BLOOD SPECIMENOrdering Facility: [facility] Address: [address] [place] [address] Performed By: #### 99524-2 # ###[facility] LABIA [id number] [place] [address] [place] RBC (Bld) [#/Vol] 4.40 10*6/uL Normal 3.90-5.20 [facility] Comment on above: Order Comment: Specimen Type : BLOOD SPECIMENOrdering Facility: [facility] Address: [address] [place], [place] [address] Performed By: #### 46137-5 # ###[facility] LABIA [id number] [place] [address] [place] WBC (Bld) [#/Vol] 7.18 10*3/uL Normal 3.70-11.00 [facility] Comment on above: Order Comment: Specimen Type : BLOOD SPECIMENOrdering Facility: [facility] Address: [address] [place] [id number] Performed By: #### 76528-6 # ###[facility] LABIA [id number] [address] [place] CNOV on 01-01-2023 CNOV Office Visit (INTMWS) Normal [facility] VINCE KOENIG ([id number]) 1955 [facility] Date Time Provider Department 01/01/23 2:00 PM OLY SMITH INTMWS During your visit today, we recorded the following inf ormation about you: Pulse Respiration Blood pressure Weight 85/minute 22/minute 170/83 58.1 kg Oly Smith APRN.RECYCLING TECHNICIAN 01/01/2023 3:27 PM Addendum CC: Patient presents with: Follow Up HPI Vince Nicolas Arya is a 67 year old female who presents today for 4 month follow-up however her main concern today is alcohol withdrawal. Patient states she started drinking heavily after the loss of her bro ther, son and dog. For the past three months she cabrera s been drinking about 30-40 beers a week, sometimes more. Occasionally has about 1 quart of whiskey in one day. Hasn't had a drink since yesterday morning, had three beers. Since then s he has been feeling anxious, tired, shaky, weak, and nauseated. Denies swe ats, itching, numbness/tingling, burning or crawling sensations, vis ual or auditory hallucinations, headaches, seizures, confusion or diso rientation. She is interested inpatient alcohol detox but unsure wh ere to go for this. Denies SI or HI. REVIEW OF SYSTEMS GENERAL: Negative for significant weight loss, fever, chills, night sweats RESPIRATORY: chronic SOB with exertion, cough an d wheezing secondary to COPD. CARDIOVASCULAR: Negative for chest pain, leg swelling, palpitations, orthopnea, and paroxysmal nocturnal dyspnea PAST MEDICAL HISTORY Diagnosis Date Acute pancreatitis 2010 [facility] Alcohol use disorder 01/18/2016 [facility] Anxiety 12/14/2015 Bipolar affective disorder, currently active ([facility]) 07/2016 Dr. Angie Jones, [facility] Chronic bronchitis ([facility]) 07/26/2016 Closed skull fracture ([facility]) 1994 [facility], [facility] Coronary artery disease DDD (degenerative disc disease), cervical Endometriosis 2007 Essential hypertension 12/14/2015 GERD (gastroesophageal reflux disease) 03/13/2019 History of colon polyps History of gastric ulcer 12/14/2015 HLD (hyperlipidemia) Injury of left facial nerve 1994 PAD (peripheral artery disease) ([facility]) 09/28/2019 Recurrent major depression in partial remission ([facility]) 12/14/2015 S/P drug eluting coronary stent placement [...] TOTAL FACIAL NERVE DECOMPRESSION AND/REPAIR Left 1989 [facility] ALLERGIES Patient has no known allergies. MEDICATIONS traZODone (DESYREL) 100 mg tablet Take 2 tablets by mo uth daily at bedtime. rkfbmrxldrk-bnaqskuuy-vigvmdqo (TRELEGY ELLIPTA) 200-6 2.5-25 mcg inhalation powder [...] Apply sparingly to area for ra sh/itching. albuterol HFA (VENTOLIN HFA) 90 mcg/actuation inhaler [...] aspirin 81 mg chewable tablet Take 1 tabl (more conten t not included)... [facility] on 01-01-2023 [facility] Telephone ([facility]) Formerly [facility], [facility] VINCE KOENIG ([id number]) 1955 [facility] Date Time Provider Department 01/01/23 DIANA PENA PCCREJ During your visit today, we recorded the following inf ormation about you: GIO Cardona 01/01/2023 3:55 PM Signed Behavioral Health Social Work Progress Note Patient identified for [facility] from: PCP Reason for referral: Resources Behavioral Health Resources: Substance abuse [facility] encounter type: Telephone Encounter Attempts to Outreach: 1 attempt Referral made: Psychology - External Psychology-External referral type: Alcohol/Drug Treatm ent Reason for external referral: Patient seeking long ter m support, Patient needs services closer to home Final Disposition: Resources given Patient Discharged?: Yes Patient reported that caregiver was able to meet their needs today?: Yes SW placed telephone call at the request of the PCP to discuss behavioral health needs and provide referrals for outpatient support to assist with detox. 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 Uses drinking as a coping mechanism to deal with anxiety an d stress. Patient was able to write the following resources down as places to call or look into for detoxification and substance abuse: [facility] [address] [place], [place] [id number] [address] [phone] [facility] [address] [place], [place] [phone] Patient states she may end up just going to [facility] if she can't find anywhere to go to assist as she really needs to detox. Advised to call these numbers and if additional assistance is needed to info rm this SW. GIO Cardona January 01, 2023 Allergies As of Date: 01/01/2023 (No Known Allergies) Date Reviewed: 01/01/2023 Reviewed by: Oly Smith APRN.RECYCLING TECHNICIAN - Fully Assessed Reason for Visit: Behavioral Health Social Work [Other] Prescriptions as of 01/01/2023 - traZODone (DESYREL) 100 mg tablet Take 2 tablets by mouth daily at bedtime. - lmngfddhlko-mwbwodxxw-ksymsfiv (TRELEGY ELLIPT A) 200-62.5-25 mcg inhalation powder Inhale 1 Puff as instructed once daily. - predniSONE (DELTASONE) 10 mg tablet Take two daily for 5 days then one daily for 10 days - nystatin (MYCOSTATIN) 100,000 unit/mL suspension Take [...] mg ca psule to =225 mg - carvedilol (COREG) 6.25 mg tablet Take 1 tablet by mouth twice daily. - Olopatadine (PATADAY ONCE DAILY RELIEF) 0.2 % drop Use 1 Drop in both eyes once daily. - lisinopril (ZESTRIL, PRINIVIL) 40 mg tablet Take 1 tablet by mouth once daily. - venlafaxine ER (EFFEXOR XR) 75 mg 24 hr capsule Take 1 capsule by mouth once daily. Take with 150 mg c apsule to =150 mg - triamcinolone acetonide (KENALOG) 0.1 % cream Apply 1 application to affected area three times daily . Apply sparingly to area for rash/itching. - albuterol HFA (VENTOLIN HFA) 90 mcg/actuation [...] once daily. Problem List As Of Date 01/01/2023 Noted Resolved Essential hypertension [I10] 12/14/2015 Recurrent [...] lived, 3-5 minutes, none*201807/07/2020 PAD (peripheral artery disea se) ([facility]) [I73.9] 09/28/2019 (more content not included)... XR CHEST 2V FRONTAL/LAT on 01-01-2023 XR CHEST 2V FRONTAL/LAT * * *Final Report* * * Normal [facility] DATE OF EXAM: Jan 01 2023 1:02PM [place] WOX 5291 - XR CHEST 2V FRONTAL/LAT / 8585 PROCEDURE REASON: Hemoptysis * * * * Physician Interpretation * * * * EXAMINATION: CHEST RADIOGRAPH (2 VIEW FRONTAL and LATE RAL) CLINICAL HISTORY: Hemoptysis MQ: [id number] EXAM DATE/TIME: 01/01/2023 1:02 PM COMPARISON: 03/08/2021 RESULT: Lines, tubes, and devices: Anterior cervical fusion cabrera rdware Lungs and pleura: No consolidation. No lung mass. No p leural effusion. No pneumothorax. Cardiomediastinal silhouette: Normal cardiomediastinal silhouette. Bones and soft tissues: Unremarkable. IMPRESSION: No acute radiographic abnormality. Satellite Specialist[facility] Transcribe Date/Time: Jan 01 2023 3:22P Dictated by : HUBER VILA MD This examination was interpreted and the report review ed and electronically signed by: HUBER VILA MD on Jan 01 2023 3:23PM EST [id number] .Auto Diff on 12-23-2022 Basophil, Absolute 0.1 10 3/mcL Normal 0.0-0.2 [facility] ([place]) Comment on above: Performed By: #### TROPHS, G FR, CMP, PBNP #### [address] [address] Basophils/100 WBC (Bld) 1.5 % Normal 0.0-2.5 [facility] ([place]) Comment on above: Performed By: #### TROPHS, G FR, CMP, PBNP #### [address] [address] Eosinophil, Absolute 0.1 10 3/mcL Normal 0.0-0.4 [facility] ([place]) Comment on above: Performed By: #### TROPHS, G FR, CMP, PBNP #### [address] [address] Eosinophils/100 WBC (Bld) 1.1 % Normal 0.0-7.0 Pending [facility] to [facility] ([place]) Comment on above: Performed By: #### TROPHS, G FR, CMP, PBNP #### [address] [address] Lymphocyte, Absolute 2.0 10 3/mcL Normal 0.8-3.9 [facility] ([place]) Comment on above: Performed By: #### TROPHS, G FR, CMP, PBNP #### [address] [address] Lymphocytes/100 WBC (Bld) 36.4 % Normal 10.0-50.0 [facility] ([place]) Comment on above: Performed By: #### TROPHS, G FR, CMP, PBNP #### [place] [address] [place], [place] [address] Monocyte, Absolute 0.5 10 3/mcL Normal 0.2-1.0 [facility] ([place]) Comment on above: Performed By: #### TROPHS, G FR, CMP, PBNP #### [address] [address] Monocytes/100 WBC (Bld) 9.3 % Normal 1.7-13.0 [facility] ([place]) Comment on above: Performed By: #### TROPHS, G FR, CMP, PBNP #### [address] [address] Neutrophils/100 WBC (Bld) 51.7 % Normal 37.0-80.0 [facility] ([place]) Comment on above: Performed By: #### TROPHS, G FR, CMP, PBNP #### [address] [address] .GFR on 12-23-2022 GFR 100 ml/min/1.73sqm Normal A [facility] ([place]) Comment on above: Result Comment: GFR Population mean for Afri can Slovak, Non- Americans Ages 20-29 = 116 mL/min/1.73 [...] #### TROPHS, G FR, CMP, PBNP #### [address] [address] GFR Non- 82 ml/min/1.73sqm Normal [facility] ([place]) Comment on above: Result Comment: GFR Population mean for Afri can Slovak, Non- Americans Ages 20-29 = 116 mL/min/1.73 sq.m. Ages 30-39 = 107 mL/min/1.73 sq.m. Ages 40-49 = 99 mL/min/1.73 sq.m. Ages 50-59 = 93 mL/min/1.73 sq.m. Ages 60-69 = 85 mL/min/1.73 sq.m. Ages 70+ = 75 mL/min/1.73 sq .m. Chronic Kidney Disease: Less than 60 mL/min/1.73 square meters End Stage Renal Disease: Les s than 15 mL/min/1.73 square meters Performed By: #### JOSE JS, G FR, CMP, PBNP #### [address] [address] .MDW on 12-23-2022 Monocyte Distribution Width 18.17 Normal 0.00-20.00 [facility] ([place]) Comment on above: Result Comment: For ED adult patients suspected of sepsis, MDW<=20.0 does not rule out sepsis or risk of sepsis Performed By: #### FLYNN G FR, CMP, PBNP #### [address] [address] .NEUABS on 12-23-2022 Neutrophil, Absolute 2.8 10 3/mcL Low 2.9-6.2 [facility] ([place]) Comment on above: Performed By: #### FLYNN, G FR, CMP, PBNP #### [address] [address] BMP on 12-23-2022 BUN/Creatinine Ratio 6 ratio Low 7-27 [facility] ([place]) Comment on above: Performed By: #### JOSE JS, G FR, CMP, PBNP #### [address] [address] Calcium [Mass/Vol] 8.1 mg/dL Low 8.4-10.2 [facility] ([place]) Comment on above: Performed By: #### TROPHS, G FR, CMP, PBNP #### [address] [address] Chloride [Moles/Vol] 102 mmol/L Normal 98-107 [facility] ([place]) Comment on above: Performed By: #### Gustavo PRUETT, CMP, PBNP #### [address] [address] CO2 [Moles/Vol] 30 mmol/L Normal 23-31 [facility] ([place]) Comment on above: Performed By: #### Gustavo PRUETT, CMP, PBNP #### [address] [address] Creatinine [Mass/Vol] 0.71 mg/dL Normal 0.55-1.02 [facility] ([place]) Comment on above: Performed By: #### Gustavo PRUETT, CMP, PBNP #### [address] [address] Electrolyte Balance 7.0 mEq/L Normal 4.0-15.0 [facility] ([place]) Comment on above: Performed By: #### Gustavo PRUETT, CMP, PBNP #### [address] [address] Glucose [Mass/Vol] 88 mg/dL Normal 80-115 [facility] ([place]) Comment on above: Performed By: #### Gustavo PRUETT, CMP, PBNP #### [address] [address] Potassium [Moles/Vol] 4.1 mmol/L Normal 3.5-5.1 [facility] ([place]) Comment on above: Performed By: #### Gustavo PRUETT, CMP, PBNP #### [address] [address] Sodium [Moles/Vol] 139 mmol/L Normal 136-145 [facility] ([place]) Comment on above: Performed By: #### Gustavo PRUETT, CMP, PBNP #### [address] [address] Urea nitrogen [Mass/Vol] 4 mg/dL Low 7-18 [facility] ([place]) Comment on above: Performed By: #### TROPHS, G FR, CMP, PBNP #### [address] [address] CBC on 12-23-2022 Erythrocyte distribution width 15.8 % High 11.5-14.5 [facility] ([place]) (RBC) [Ratio] Comment on above: Performed By: #### JOSE JS G FR, CMP, PBNP #### [address] [address] Hematocrit (Bld) [Volume 39.7 % Normal 37.0-47.0 [facility] ([place]) fraction] Comment on above: Performed By: #### JOSE JS G FR, CMP, PBNP #### [address] [address] Hgb 13.2 G/dL Normal 12.0-16.0 [facility] ([place]) Comment on above: Performed By: #### JOSE JS G FR, CMP, PBNP #### [address] [address] MCH (RBC) [Entitic mass] 32.3 pg High 27.0-31.2 [facility] ([place]) Comment on above: Performed By: #### JOSE JS G FR, CMP, PBNP #### [address] [address] MCHC 33.2 G/dL Normal 33.0-37.0 [facility] ([place]) Comment on above: Performed By: #### TROPHS, G FR, CMP, PBNP #### [address] [address] MCV (RBC) [Entitic vol] 97.3 fL High 80.0-94.0 [facility] ([place]) Comment on above: Performed By: #### JOSE JS G FR, CMP, PBNP #### [address] [address] Platelet 337 10 3/mcL Normal 130-400 [facility] ([place]) Comment on above: Performed By: #### TROPHS, G FR, CMP, PBNP #### [facility] [address] [place], [place] [address] Platelet mean volume (Bld) 7.7 fL Normal 7.4-10.4 [facility] ([place]) [Entitic vol] Comment on above: Performed By: #### TROPHS, G FR, CMP, PBNP #### [facility] [address] [place], [place] [address] RBC 4.08 10 6/mcL Low 4.20-5.40 [facility] ([place]) Comment on above: Performed By: #### TROPHS, G FR, CMP, PBNP #### [address] [place] [address] [place], [place] [address] WBC 5.4 10 3/mcL Normal 4.6-10.8 [facility] ([place]) Comment on above: Performed By: #### TROPHS, G FR, CMP, PBNP #### [address] [place], [place] [address] LABORATORY Ordered By: Glenda brown on 12-23-2022 [...] Non- 82 Invalid Interpretation AO Chemistry S Slovak ml/min/1.73sqm Code Glucose [Mass/Vol] 88 mg/dL Invalid [...] peptide B (Bld) 540 pg/mL High 0-125 [facility] ([place]) [Mass/Vol] Comment on above: Result Comment: NT-proBNP re sults of less than 300 pg/mL effectively rules out acute congestive h eart failure with 99% negative predictive value. Performed By: #### Gustavo PRUETT FR, CMP, PBNP #### [address] [address] TROPHS on 12-23-2022 Troponin I High Sensitivity 14.1 ng/L Normal 0.0-51.4 [facility] ([place]) Comment on above: Performed By: #### Gustavo PRUETT FR, CMP, PBNP #### [facility] [address] [place], [place] [address] XR CHEST 1 VIEW on 12-23-2022 XR CHEST 1 VIEW ORIGINAL Normal [facility] EXAMINATION: ([place]) ONE XRAY VIEW OF THE [...] 2:43:01 PM Ordering Provider: JOSE ROBERTO COMBS CNOV on 11-26-2022 CNOV Office Visit (PULMWS) Normal [facility] VINCE KOENIG ([id number]) 1955 [facility] Time Provider Department 11/26/22 12:45 PM SALIMA ASHER PULMWS During your visit today, we recorded the following inf ormation about you: Pulse Respiration Blood pressure Weight 98/minute 20/minute 120/84 57.6 kg Salima Asher MD 11/26/2022 2:01 PM Signed . Respiratory [place] Note Patient name: Vince Koenig PCP: Ulises Hermosillo MD CC: Hemoptysis HPI: Vince Koenig 67 year old female curren t heavy smoker, over 100 pack years with PMH significant for bipolar affective disorder, h/o alcohol abuse, GERD, PAD, HLD, CAD s/p stent, severe COPD (FEV1 0.83 L 36%), oxygen dependence, previously following in [facility], new to me. Recent admission at [facility] in [place] for AE COPD. CXR reported as normal. [...] No chest pain or current cough. DME: [facility] DATA: PFT 05/2022: Review of spirometry shows severe obstruction wi thout significant improvement post bronchodilators and moderate reduction in diffusi ng capacity Labs: Laboratory testing at [facility], normal CBC and platelet count. Negative COVID and influenza Imaging / Diagnostic Studies: DATE OF EXAM: Jul 26 2022 4:27PM [facility] 0562 - CT LUNG SCREEN WO IVCON [...] the images and agree with the ab duncan assessment PAST MEDICAL HISTORY Diagnosis Date Acute pancreatitis 2010 Maynor Cruz Alcohol use disorder 01/18/2016 Dr. Angie [facility] Anxiety 12/14/2015 Bipolar affective disorder, currently active ([facility]) 07/2016 Dr. Angie Jones, [facility] Chronic bronchitis ([facility]) 07/26/2016 Closed skull fracture ([facility]) 1994 [facility], [facility] Coronary artery disease DDD (degenerative disc disease), cervical Endometriosis 2007 Essential hypertension 12/14/2015 GERD (gastroesophageal reflux disease) 03/13/2019 History of colon polyps History of gastric ulcer 12/14/2015 HLD (hyperlipidemia) Injury of left facial nerve 1994 PAD (peripheral artery disease) ([facility]) 09/28/2019 Recurrent major depression in partial remission ([facility]) 12/14/2015 S/P drug eluting coronary stent placement 08/25/2021 LAD and Dg2 Spinal stenosis ALLERGIES No Known Allergies albuterol HFA (VENTOLIN HFA) 90 mcg/actuation inhaler Inhale 2 Puffs as instructed every 6 hours as needed for wheezing/shortn ess of breath. heghylotryx-wmaqdgcda-kzliejjk (TRELEGY ELLIPTA) 200-6 2.5-25 mcg inhalation powder [...] included)... CNPN on 11-20-2022 CNPN Telephone (INTMWS) Formerly [facility], 1928–1983 [facility] VINCE KOENIG ([id number]) 1955 [facility] Date Time Provider Department 11/20/22 ULISES HERMOSILLO During your visit today, we recorded the following inf ormation about you: Christina Diamond Greco LPN 11/20/2022 10:40 AM Signed Pt called and reports she went to [facility] ER last week for difficulty breathing and [...] tablets by mouth daily at bedtime. - eaqrzbvmywy-xnpwzwxtj-qntjsmwi (TRELEGY ELLIPT A) 200-62.5-25 mcg inhalation powder [...] 3-5 minutes, none*201807/07/2020 PAD (peripheral artery disease) ([facility]) [I73.9] 09/28/20 19 Anxiety and depression (more content not included)... .Auto Diff on 10-26-2022 Basophil, Absolute 0.1 10 3/mcL Normal 0.0-0.2 [facility] ([place]) Comment on above: Performed By: #### TROPHS, G FR, CMP, PBNP #### [address] [place] [address] [place], [place] [address] Basophils/100 WBC (Bld) 1.6 % Normal 0.0-2.5 [facility] ([place]) Comment on above: Performed By: #### TROPHS, G FR, CMP, PBNP #### [address] [place] [place], [place] [address] Eosinophil, Absolute 0.2 10 3/mcL Normal 0.0-0.4 [facility] ([place]) Comment on above: Performed By: #### TROPHS, G FR, CMP, PBNP #### [address] [address] Eosinophils/100 WBC (Bld) 2.3 % Normal 0.0-7.0 Pending sale to [facility] ([place]) Comment on above: Performed By: #### TROPHS, G FR, CMP, PBNP #### [address] [address] Lymphocyte, Absolute 2.1 10 3/mcL Normal 0.8-3.9 [facility] ([place]) Comment on above: Performed By: #### TROPHS, G FR, CMP, PBNP #### [address] [address] Lymphocytes/100 WBC (Bld) 29.5 % Normal 10.0-50.0 [facility]ending [facility] to [facility] ([place]) Comment on above: Performed By: #### TROPHS, G FR, CMP, PBNP #### [address] [address] Monocyte, Absolute 0.6 10 3/mcL Normal 0.2-1.0 [facility] ([place]) Comment on above: Performed By: #### TROPHS, G FR, CMP, PBNP #### [address] [address] Monocytes/100 WBC (Bld) 8.6 % Normal 1.7-13.0 [facility] ([place]) Comment on above: Performed By: #### TROPHS, G FR, CMP, PBNP #### [address] [address] Neutrophils/100 WBC (Bld) 58.0 % Normal 37.0-80.0 [facility]ending [facility] to [facility] ([place]) Comment on above: Performed By: #### TROPHS, G FR, CMP, PBNP #### [address] [address] .GFR on 10-26-2022 GFR 100 ml/min/1.73sqm Normal [facility] ([place]) Comment on above: Result Comment: GFR Population mean for Afri can Slovak, Non- Americans Ages 20-29 = 116 mL/min/1.73 [...] #### TROPHS, G FR, CMP, PBNP #### [address] [address] GFR Non- 82 ml/min/1.73sqm Normal [facility] ([place]) Comment on above: Result Comment: GFR Population mean for Afri can Slovak, Non- Americans Ages 20-29 = 116 mL/min/1.73 [...] #### TROPHS, G FR, CMP, PBNP #### [address] [address] .MDW on 10-26-2022 Monocyte Distribution Width 17.60 Normal 0.00-20.00 [facility] ([place]) Comment on above: Result Comment: For ED adult patients suspected of sepsis, MDW<=20.0 does not rule out sepsis or risk of sepsis Performed By: #### TROPHS, G FR, CMP, PBNP #### [address] [address] .NEUABS on 10-26-2022 Neutrophil, Absolute 4.1 10 3/mcL Normal 2.9-6.2 [facility] ([place]) Comment on above: Performed By: #### Gustavo PRUETT FR, CMP, PBNP #### [address] [address] CBC on 10-26-2022 Erythrocyte distribution width 17.6 % High 11.5-14.5 [facility] ([place]) (RBC) [Ratio] Comment on above: Performed By: #### Gustavo PRUETT, CMP, PBNP #### [place] [address] Hematocrit (Bld) [Volume 39.9 % Normal 37.0-47.0 [facility] ([place]) fraction] Comment on above: Performed By: #### Gustavo PRUETT, CMP, PBNP #### [address] [address] Hgb 13.3 G/dL Normal 12.0-16.0 [facility] ([place]) Comment on above: Performed By: #### Gustavo PRUETT, CMP, PBNP #### [address] [address] MCH (RBC) [Entitic mass] 32.2 pg High 27.0-31.2 [facility] ([place]) Comment on above: Performed By: #### Gustavo PRUETT FR, CMP, PBNP #### [address] [address] MCHC 33.4 G/dL Normal 33.0-37.0 [facility] ([place]) Comment on above: Performed By: #### Gustavo PRUETT FR, CMP, PBNP #### [address] [address] MCV (RBC) [Entitic vol] 96.4 fL High 80.0-94.0 [facility] ([place]) Comment on above: Performed By: #### TROPHS, G FR, CMP, PBNP #### [address] [address] Platelet 387 10 3/mcL Normal 130-400 [facility] ([place]) Comment on above: Performed By: #### TROPHS, G FR, CMP, PBNP #### [address] [address] Platelet mean volume (Bld) 7.1 fL Low 7.4-10.4 [facility] ([place]) [Entitic vol] Comment on above: Performed By: #### JOSE JS, G FR, CMP, PBNP #### [address] [address] RBC 4.14 10 6/mcL Low 4.20-5.40 [facility] ([place]) Comment on above: Performed By: #### JOSE JS G FR, CMP, PBNP #### [address] [address] WBC 7.1 10 3/mcL Normal 4.6-10.8 [facility] ([place]) Comment on above: Performed By: #### JOSE JS G FR, CMP, PBNP #### [address] [address] CMP on 10-26-2022 Albumin Level 3.3 G/dL Low 3.4-4.8 [facility] ([place]) Comment on above: Performed By: #### JOSE JS, G FR, CMP, PBNP #### [address] [address] Albumin/Globulin [Mass ratio] 0.9 {ratio} Low 1.1-2.5 [facility] ([place]) Comment on above: Performed By: #### JOSE JS, G FR, CMP, PBNP #### [address] [address] ALP [Catalytic activity/Vol] 83 U/L Normal 40-135 [facility] ([place]) Comment on above: Performed By: #### JOSE JS, G FR, CMP, PBNP #### [address] [address] ALT [Catalytic activity/Vol] 29 U/L Normal 14-59 [facility] ([place]) Comment on above: Performed By: #### Gustavo PRUETT, CMP, PBNP #### [address] [address] AST [Catalytic activity/Vol] 21 U/L Normal 10-40 [facility] ([place]) Comment on above: Performed By: #### Gustavo PRUETT FR, CMP, PBNP #### [address] [address] Bili Total 0.1 mg/dL Low 0.2-1.0 [facility] ([place]) Comment on above: Result Comment: Use of this assay is not recommended for patients undergoing treatment with eltrombopag d ue to the potential for falsely elevated results. Performed By: #### Gustavo PRUETT, CMP, PBNP #### [address] [address] BUN/Creatinine Ratio 14 ratio Normal 7-27 [facility] ([place]) Comment on above: Performed By: #### Gustavo PRUETT, CMP, PBNP #### [address] [address] Calcium [Mass/Vol] 8.5 mg/dL Normal 8.4-10.2 [facility] ([place]) Comment on above: Performed By: #### FLYNN G FR, CMP, PBNP #### [address] [address] Chloride [Moles/Vol] 104 mmol/L Normal 98-107 [facility] ([place]) Comment on above: Performed By: #### FLYNN G FR, CMP, PBNP #### [address] [address] CO2 [Moles/Vol] 28 mmol/L Normal 23-31 [facility] ([place]) Comment on above: Performed By: #### JOSE JS G FR, CMP, PBNP #### [address] [address] Creatinine [Mass/Vol] 0.71 mg/dL Normal 0.55-1.02 [facility] ([place]) Comment on above: Performed By: #### Gustavo PRUETT, CMP, PBNP #### [address] [address] Electrolyte Balance 8.0 mEq/L Normal 4.0-15.0 [facility] ([place]) Comment on above: Performed By: #### Gustavo PRUETT, CMP, PBNP #### [address] [address] Globulin 3.5 G/dL Normal [facility] ([place]) Comment on above: Performed By: #### Gustavo PRUETT, CMP, PBNP #### [address] [address] Glucose [Mass/Vol] 88 mg/dL Normal 80-115 [facility] ([place]) Comment on above: Performed By: #### Gustavo PRUETT, CMP, PBNP #### [address] [address] Potassium [Moles/Vol] 4.5 mmol/L Normal 3.5-5.1 [facility] ([place]) Comment on above: Performed By: #### Gustavo PRUETT, CMP, PBNP #### [address] [address] Sodium [Moles/Vol] 140 mmol/L Normal 136-145 [facility] ([place]) Comment on above: Performed By: #### Gustavo PRUETT, CMP, PBNP #### [address] [address] Total Protein 6.8 G/dL Normal 6.4-8.2 [facility] ([place]) Comment on above: Performed By: #### Gustavo PRUETT, CMP, PBNP #### [address] [address] Urea nitrogen [Mass/Vol] 10 mg/dL Normal 7-18 [facility] ([place]) Comment on above: Performed By: #### Gustavo PRUETT FR, CMP, PBNP #### [address] [place] [place], [place] [address] COVD19 on 10-26-2022 SARS-CoV-2 (COVID-19) RNA Negative Normal Negative Pending sale to [facility] ([place]) IVANA+probe Ql (Unsp spec) Comment on above: Performed By: #### Gustavo PRUETT FR, CMP, PBNP #### [address] [place] [place], [place] [address] SARS-CoV-2 (COVID-19) RNA IVANA+probe Ql Normal [facility] ([place]) (Unsp spec) Comment on above: Result Comment: [...] complexity tests. COVID-19 Int Performed By: #### FLYNN G FR, CMP, PBNP #### [address] [place], [place] [address] FLURSV on 10-26-2022 Flu A PCR (AO) Negative Normal Negative [facility] ([place]) Comment on above: Result Comment: Positive Res [...] virus (RSV) nucleic acid in nasopharyngeal swab ([employer]) specimens from patients with signs and symptoms of respiratory infection in conjunction with clinical and laborato ry findings. The test is int ended for use as an aid in the differential diagnosis of influenza A virus, influenza B virus, and RSV in humans and is not intended to detect influenza C. Performed By: #### FLYNN G FR, CMP, PBNP #### [facility] [address] [place], [place] [address] Flu B PCR (AO) Negative Normal Negative [facility] ([place]) Comment on above: Result Comment: Positive Res [...] virus (RSV) nucleic acid in nasopharyngeal swab ([employer]) specimens from patients with signs and symptoms of respiratory infection in conjunction with clinical and laborato ry findings. The test is int ended for use as an aid in the differential diagnosis of influenza A virus, influenza B virus, and RSV in humans and is not intended to detect influenza C. Performed By: #### Gustavo PRUETT, GENE, PAVELNP #### [address] [place], [place] [address] RSV PCR (AO) Negative Normal Negative [facility] ([place]) Comment on above: Result Comment: Positive Res [...] virus (RSV) nucleic acid in nasopharyngeal swab ([employer]) specimens from patients with signs and symptoms of respiratory infection in conjunction with clinical and laborato ry findings. The test is int ended for use as an aid in the differential diagnosis of influenza A virus, influenza B virus, and RSV in humans and is not intended to detect influenza C. Performed By: #### Gustavo PRUETT, GENE, PAVELNP #### [place] [address] [place], [place] [address] LABORATORY Ordered By: Mely brown on 10-26-2022 FLUAV RNA IVANA+probe Negative Invalid [...] Code 10^3/mcL LABORATORY Ordered By: SYSTEM SYSTEM o n 10-26-2022 Albumin BCP dye 3.3 G/dL Invalid [...] Non- 82 Invalid Interpretation AO Chemistry S Slovak ml/min/1.73sqm Code Globulin 3.5 G/dL Invalid Interpretation [...] peptide B (Bld) 521 pg/mL High 0-125 [facility] ([place]) [Mass/Vol] Comment on above: Result Comment: NT-proBNP re sults of less than 300 pg/mL effectively rules out acute congestive h eart failure with 99% negative predictive value. Performed By: #### TROPHS, G FR, CMP, PBNP #### [address] [address] TOXSC on 10-26-2022 U Ampheta (AO) Negative [facility] ([place]) Comment on above: Performed By: #### UA, TOXSC #### [address] [address] U Nanci (AO) Negative [facility] ([place]) Comment on above: Performed By: #### UA, TOXSC #### [address] [address] U Heron (AO) Negative [facility] ([place]) Comment on above: Performed By: #### UA, TOXSC #### [address] [address] U Cannab (AO) Negative [facility] ([place]) Comment on above: Performed By: #### UA, TOXSC #### [address] [address] U Cocaine (AO) Negative Normal [facility] ([place]) Comment on above: Performed By: #### UA, TOXSC #### [address] [address] U Methadone (AO) Negative [facility] ([place]) Comment on above: Performed By: #### UA, TOXSC #### [address] [address] U PCP (AO) Negative Normal [facility] ([place]) Comment on above: Performed By: #### UA, TOXSC #### [address] [address] U TCA (AO) Negative Normal [facility] ([place]) Comment on above: Performed By: #### UA, TOXSC #### [address] [address] Urine Opiates (AO) Negative Normal [facility] ([place]) Comment on above: Performed By: #### UA, TOXSC #### [address] [address] TROPHS on 10-26-2022 Troponin I High Sensitivity 15.6 ng/L Normal 0.0-51.4 [facility] ([place]) Comment on above: Performed By: #### TROPHS, G FR, CMP, PBNP #### [address] [address] UA on 10-26-2022 Color (U) Yellow Normal [facility] ([place]) Comment on above: Performed By: #### UA, TOXSC #### [address] [address] Glucose (U) [Mass/Vol] Negative Normal Negative [facility] ([place]) Comment on above: Performed By: #### UA, TOXSC #### [address] [address] Ketones Ql (U) Negative Normal Negative [facility] ([place]) Comment on above: Performed By: #### UA, TOXSC #### [address] [address] UA Appear Clear Normal Clear [facility] ([place]) Comment on above: Performed By: #### UA, TOXSC #### [address] [address] UA Blood Negative Normal Negative [facility] ([place]) Comment on above: Performed By: #### UA, TOXSC #### Kathi [address] [address] UA Leuk Est Negative Normal Negative [facility] ([place]) Comment on above: Performed By: #### UA, TOXSC #### [address] [address] UA Nitrite Negative Normal Negative [facility] ([place]) Comment on above: Performed By: #### UA, TOXSC #### [place] [id number] UA pH 5.5 Normal 5.0 - 8.0 [facility] ([place]) Comment on above: Performed By: #### UA, TOXSC #### [address] [address] UA Protein Negative Normal Negative [facility] ([place]) Comment on above: Performed By: #### UA, TOXSC #### [address] [address] UA Spec Grav <=1.005 Abnormal 1.015-1.025 [facility] ([place]) Comment on above: Performed By: #### UA, TOXSC #### [address] [address] UA Specimen Type Not Given Normal [facility] ([place]) Comment on above: Performed By: #### UA, TOXSC #### [address] [address] UA Urobilinogen 0.2 E.U./dL Normal 0.2-1.0 [facility] ([place]) Comment on above: Performed By: #### UA, TOXSC #### [address] [address] Urobilinogen (U) [Mass/Vol] Negative Normal Negative [facility] ([place]) Comment on above: Performed By: #### UA, TOXSC #### [place] [id number] XR CHEST 1 VIEW on 10-26-2022 XR CHEST 1 VIEW ORIGINAL Normal [facility] EXAMINATION[facility] ([place]) ONE XRAY VIEW OF THE [...] [facility]WS) [id number] 1955 [facility] Date Time Provider Department 10/02/22 10:00 AM TAWNY SELFS During your visit today, we recorded the following inf ormation about you: Pulse Blood pressure Weight Height 86/minute 155/87 59 kg 1.621 m Tawny Self DO 10/02/2022 10:38 AM Signed This office note has been dictated. Tawny Self DO Referring Provider: ULISES HERMOSILLO [[id number]] Allergies As of Date: 10/02/2022 (No Known Allergies) Date Reviewed: 10/02/2022 Reviewed by: YASSINE Hobson - Fully Assessed Reason for Visit: Established Patient [175] Visit Diagnosis:PAD (peripheral artery disease) ([facility]) [I73.9] Order(s):CONSULT TO VASCULAR SURGERY [9042] Order #: 1 [id number]: 1 PVR LEG SHERIN [facility] [[id number]] Order #: [id number] FUTU RE Prescriptions as of 10/02/2022 - [...] tablets by mouth daily at bedtime. - fopgpkvghmw-alorwkzgn-wkknpvya (TRELEGY ELLIPT A) 200-62.5-25 mcg inhalation powder [...] 3-5 minutes, none*201807/07/2020 PAD (peripheral artery disease) ([facility]) [I73.9] 09/28/20 19 Anxiety and depression [F41.9, F32.A] 10/06/2019 Hypomagnesemia [E83.42] 10/22/2019 10/23/2019 Asthma [J45.909] 07/07/2020 07/07/2020 Prediabetes [R73.03] 02/04/2021 Chest pain [R07.9] 05/08/2021 Other chest pain [R07.89] 05/08/2021 Stenosis of carotid artery [I65.29] 05/08/2021 Mixed hyperlipidemia [E78.2] 05/08/2021 Abnormal stress test [R94.39] 08/26/2021 Dyspnea on exertion [R06.09] 08/26/2021 Coronary artery disease involving metlakatla tolbert*2020 Lung nodule [R91.1] 08/31/2022 Encounter Status:Closed by TAWNY SELF on PVR LEG [facility] on 09-25-2022 PVR Non-Invasive Vascular Laboratory Normal Abdul LEG [facility] SHERIN Abdul VAS Lower Extremity Arterial [...] popliteal disea se. Technologist: Becky Mao RVT, [facility] Ordering physician: TAWNY SELF Interpreting physician: MALINDA Vitale DO Electronically signed by MALINDA Vitale DO on at 5:16:34 PM Final [facility] age : [id number] See Link below for Image [facility] on 09-21-2022 CNPN Telephone (VSLWST) Formerly [facility], [facility] VINCE KOENIG ([id number]) 1955 [facility] Date Time Provider Department 09/21/22 TAWNY SELF During your visit today, we recorded the following inf ormation about you: Linda Lefty 09/21/2022 2:49 PM Signed PT calling in again to sched evette SAMUELS US. Order still shows as closed and [...] as soon as able. Thank you! Linda Das Self, 09/24/2022 11:11 AM Signed Ordered placed. Linda Olea 09/21/2022 5:03 PM Signed Scheduled pt. Tried calling pt twice to inform them of scheduled ronit t on 09/25/22 at 2:30 When pt returns call please check that this appointmen t works for them. Once completed please document in this encounter. Thank You! Linda Olea' Linda Olea 09/24/2022 11:11 AM Signed Spoke with pt and confirmed appt on 09/25 Allergies As of Date: 09/21/2022 (No Known Allergies) Date Reviewed: 09/05/2022 Reviewed by: Saranya Link Ma - Fully Assessed Reason for Visit: Patient Question [1477] Primary Visit Diagnosis:Peripheral arterial disease ([facility]) [I73.9] Order(s):PVR LEG [facility]ER[facility] [[id number]] Order #: [id number] FUTURE Prescriptions as of 09/24/2022 - nystatin [...] tablets by mouth daily at bedtime. - oznxtmekpvj-fsahoaujd-djtoyygk (TRELEGY ELLIPT A) 200-62.5-25 mcg inhalation powder [...] 3-5 minutes, none*201807/07/2020 PAD (peripheral artery disease) ([facility]) [I73.9] 09/28/20 19 Anxiety and depression [F41.9, F32.A] 10/06/2019 Hypomagnesemia [E83.42] 10/22/2019 10/23/2019 Asthma [J45.909] 07/07/2020 07/07/2020 Prediabetes [R73.03] 02/04/2021 Chest pain [R07.9] 05/08/2021 Other chest pain [R07.89] 05/08/2021 Stenosis of carotid artery [I65.29] 05/08/2021 Mixed hyperlipidemia [E78.2] 05/08/2021 Abnormal stress test [R94.39] 08/26/2021 Dyspnea on exertion [R06.09] 08/26/2021 Coronary artery disease involving metlakatla tolbert*2020 Lung nodule [R91.1] 08/31/2022 E (more content not included)... CNPN on 09-19-2022 CNPN Telephone (VASSWS) Formerly [facility] VINCE KOENIG ([id number]) 1955 [facility] Time Provider Department 09/19/22 TAWNY SELF VASSWS [...] tablets by mouth daily at bedtime. - lmxcnhpaukj-chxefgvds-zwopkhwc (TRELEGY ELLIPT A) 200-62.5-25 mcg inhalation powder [...] 3-5 minutes, none*201807/07/2020 PAD (peripheral artery disease) ([facility]) [I73.9] 09/28/20 19 Anxiety and depression [F41.9, F32.A] 10/06/2019 Hypomagnesemia [E83.42] 10/22/2019 10/23/2019 Asthma [J45.909] 07/07/2020 07/07/2020 Prediabetes [R73.03] 02/04/2021 Chest pain [R07.9] 05/08/2021 Other chest pain [R07.89] 05/08/2021 Stenosis of carotid artery [I65.29] 05/08/2021 Mixed hyperlipidemia [E78.2] 05/08/2021 Abnormal stress test [R94.39] 08/26/2021 Dyspnea on exertion [R06.09] 08/26/2021 Coronary artery disease involving metlakatla tolbert*2020 Lung nodule [R91.1] 08/31/2022 Encounter Status:Closed by NEVIN PERAZA on CNOV on 09-05-2022 CNOV Office Visit (INTMWS) [facility] VINCE KOENIG ([id number]) 1955 [facility] Time Provider Department 09/05/22 4:20 PM ULISES HERMOSILLO INTMWS During your visit today, we recorded the following inf ormation about you: Pulse Blood pressure Weight 95/minute 132/82 59.9 kg Ulises Hermosillo MD 09/05/2022 9:44 PM Signed Patient presents with: Pain: Mouth pain x 1 week Vince Koenig was here for above. She developed ge neral soreness in her gums and mouth after she had a flu shot. She had troub le eating and chewing. She had not taken any thing for her symptoms. Rosalva brown was under stress due to the of her brother from [place]. ROS; No cold, no fever, no dysphagia. ACTIVE PROBLEM LIST Essential Hypertension Recurrent Major Depression in Partial Remission ([facility]) Bipolar Affective Disorder, Currently Active ([facility]) History of Alcohol Abuse Chronic bronchitis ([facility]) Spinal Stenosis, Lumbar Region Without Neurogenic Jannette dication Radiculopathy, Lumbar Region Smoker Gerd (Gastroesophageal Reflux Disease) Seasonal Allergies Pad (Peripheral Artery Disease) ([facility]) Anxiety and Depression Prediabetes Chest Pain Other Chest Pain Stenosis of Carotid Artery Mixed Hyperlipidemia Abnormal Stress Test Dyspnea On Exertion Coronary Artery Disease Involving [place] Coronary Talia ry of [place] Heart Without Angina Pectoris Lung Nodule Current [...] tablets by mo uth daily at bedtime. ktvjbltlqsq-ydzdzpfbe-lwhctzzk (TRELEGY ELLIPTA) 200-6 2.5-25 mcg inhalation powder [...] tablet Take 1 tablet by mala th once daily. No current facility-administered medications for [...] (INTMWS) [facility] VINCE KOENIG ([id number]) 1955 [facility] Date Time Provider Department 08/31/22 1:20 PM OLDER, OLY INTMWS During your visit today, we recorded the following inf ormation about you: Pulse Respiration Blood pressure Weight 86/minute 18/minute 125/82 58.5 kg Oly Older, BULB BRANDER.RECYCLING TECHNICIAN 08/31/2022 2:58 PM Signed CC: Patient presents [...] 148/82[manual[ 06/06/2022 173/84 Coronary artery disease involving metlakatla coronary talia ry of [place] heart without angina pectoris 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 She on Plavix and Imdur. Sh e stopped taking ASA because she takes Excedrin a lot and thought it was th e same thing. 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 Last appointm ent in May. Symbicort was stopped and she was started on Trelegy. She reports chronic cough, SOB and wheezing are about the same. Also has home oxygen for as needed use . REVIEW OF SYSTEMS See HPI PAST MEDICAL HISTORY Diagnosis Date Acute pancreatitis 2010 Maynor Cruz Alcohol use disorder 01/18/2016 Dr. Anige Jones, [facility] Anxiety 12/14/2015 Bipolar affective disorder, currently active ([facility]) 07/2016 Dr. Angie Jones, [facility] Chronic bronchitis ([facility]) 07/26/2016 Closed skull fracture ([facility]) 1994 [facility], [facility] Coronary artery disease DDD (degenerative disc disease), cervical Endometriosis 2007 Essential hypertension 12/14/2015 GERD (gastroesophageal reflux disease) 03/13/2019 History of colon polyps History of gastric ulcer 12/14/2015 HLD (hyperlipidemia) Injury of left facial nerve 1994 PAD (peripheral artery disease) ([facility]) 09/28/2019 Recurrent major depression in partial remission ([facility]) 12/14/2015 S/P drug eluting coronary stent placement [...] TOTAL FACIAL NERVE DECOMPRESSION AND/REPAIR Left 1989 [facility] ALLERGIES Patient has no known allergies. MEDICATIONS traZODone (DESYREL) 100 mg tabletTake 2 tablets by mala th daily at bedtime.Disp: 60 tabletRfl: 5 fumccbavyvb-thyyxiavs-wnrqhvsm (TRELEGY ELLIPTA) 200-6 2.5-25 mcg inhalation powderInhale [...] MOUTH EVERY D (more content not included)... CNPN on 08-13-2022 CNPN Telephone (INTMWS) Formerly [facility] VINCE KOENIG ([id number]) 1955 [facility] Date Time Provider Department 08/13/22 ULISES HERMOSILLO INTMWS During your visit today, we recorded the following inf ormation about you: Nena Dozier RN 08/13/2022 12:37 PM Signed February CM with Kailash toro t o let provider know that care plans for patient are available on the portal now. February also wants to let provider know that on at 4 pm they will be having a rounding meeting and if provider would lik e to attend he can contact them at [phone] Option 3 to arrange. AAMIR Coffman MD 08/16/2022 1:08 AM Signed No thanks. Allergies As of Date: 08/13/2022 (No Known Allergies) Date Reviewed: 07/31/2022 Reviewed by: Karly Garcia APRN.RECYCLING TECHNICIAN - [place] vicente Assessed Reason for Visit: Patient Update [1234] Prescriptions as of 08/16/2022 - traZODone (DESYREL) 100 mg tablet Take 2 tablets by mouth daily at bedtime. - rebspbvxxnk-oyoswstxj-rrkffxlr (TRELEGY ELLIPT A) 200-62.5-25 mcg inhalation powder [...] exertion [R06.09] 08/26/2021 Coronary artery disease involving metlakatla tolbert*2020 Encounter Status:Closed by ULISES HERMOSILLO on 08/16 JEOVANNY on 08-02-2022 JEOVANNY Telephone (KT) [facility] ([id number][facility] 1955 [place] Date Time Provider Department 08/02/22 TAWNY SELF During your visit today, we recorded the following inf ormation about you: Nevin Sarah 08/02/2022 12:40 PM Signed Please call patient to schedule testing prior to appt on 08/14/2022 Thank you Allergies As of Date: 08/02/2022 (No Known Allergies) Date Reviewed: 07/31/2022 Reviewed by: Karly Garcia APRN.RECYCLING TECHNICIAN - [place] vicente Assessed Reason for Visit: Appointment [186] Prescriptions as of 08/10/2022 - traZODone (DESYREL) 100 mg tablet Take 2 tablets by mouth daily at bedtime. - dqqzvhfxtgt-nrmubobit-ncozomml (TRELEGY ELLIPT A) 200-62.5-25 mcg inhalation powder [...] exertion [R06.09] 08/26/2021 Coronary artery disease involving metlakatla tolbert*2020 Encounter Status:Closed by NEVIN SMITH on SUZY on 07-31-2022 CN Office Visit ([facility]) [facility] VINCE KOENIG ([id number]) 1955 [facility] Time Provider Department 07/31/22 2:30 PM SAVANNA KENNY [facility] During your visit today, we recorded the following inf ormation about you: Pulse Blood pressure Weight 89/minute 148/82 60.3 kg Karly Garcia APRN.CNP 07/31/2022 4:53 PM Attested Attestation signed by Savanna Kenny APRN.LINDA a t 07/31/2022 4:53 PM TEACHING PROVIDER (Physician/PA/BULB BRANDER) NOTE OF PERSONAL INVOLVEMENT IN CARE: I have personally seen and examined the patient and pe rformed the medical decision-making components. I have reviewed the Kaur Loya 's documentation and verified the findings in the n ote as written. Any additions or changes are noted in bold/italics. Signature: Savanna Kenny APRN.RECYCLING TECHNICIAN Date: 07/31/2022 Time: 4:53 PM Chief Complaint: Here to review results from LDCT scan dated 07/26/22 fo r LUNG RADS Category 2 finding. History of Present Illness: Vince Koenig is a 67 year old female who is prese nting today for pulmonary nodule follow-up. Nodule was found thr [facility] lung cancer screening on LDCT. Patient has [...] all times but only uses it at ho in as she does not have a small portable O2 machine due to cost. Current respiratory medication includes T relegy daily and Symbicort daily and prn albuterol- using 2x daily. Per her last OV with her deputy assessor, Symbicort was advised to be discontinue d as Trelegy was added on. Activity: Does light house work but has to stop in between chores to catch her breath. Gets SOB with showering or with walking from er bedroom to her kitchen. The patient does not require assistance with normal activities of daily living. Modified Medical Research [place] Dyspnea Scale (MMRC) I stop for breath after walk ing about 100 yards or after a few minutes on level ground 3 History of respiratory exposures include: Occupational: None Environmental: Second had smoke exposure as a child Father and mother had lung cancer Past Medical History: PAST MEDICAL HISTORY Diagnosis Date Acute pancreatitis 2010 KathiMaynor novoa Alcohol use disorder 01/18/2016 [facility] Anxiety 12/14/2015 Bipolar affective disorder, currently active ([facility]) 07/2016 [facility] Chronic bronchitis ([facility]) 07/26/2016 Closed skull fracture ([facility]) 1994 [facility], [facility] Coronary artery disease DDD (degenerative disc disease), cervical Endometriosis 2007 Essential hypertension 12/14/2015 GERD (gastroesophageal reflux disease) 03/13/2019 History of colon polyps History of gastric ulcer 12/14/2015 HLD (hyperlipidemia) Injury of left facial nerve 1994 PAD (peripheral artery disease) ([facility]) 09/28/2019 Recurrent major depression in partial remission ([facility]) 12/14/2015 S/P drug eluting coronary stent placement [...] TOTAL FACIAL NERVE DECOMPRESSION AND/REPAIR Left 1989 [facility] Family Hx: FAMILY HISTORY Problem Relation Age of Onset Cancer Mother 50 lung cancer Hypertension Mother Cancer Father 50 lung cancer Cancer Sister 61 lung cancer Allergies: ALLERGIES No Known (more content not included)... CT LUNG SCREEN WO IVCON on 07-26-2022 CT LUNG * * *Final Report* * * [facility] DATE OF EXAM: Jul 26 2022 4:27PM Hospital WO [facility] 0562 - CT LUNG SCREEN WO IVCON / 2491 IVCON PROCEDURE REASON: multiple diagnoses * * * * Physician Interpretation * * * * EXAMINATION: CHEST CT WITHOUT CONTRAST (LOW-DOSE CT ILENE NG CANCER SCREENING PROTOCOL) CLINICAL HISTORY: Lung cancer LDCT screening ? absence of signs or symptoms of lung cancer. Nicotine dependence (cigarett es). Subsequent (annual) Technique: Spiral CT acquisition of the chest from the thoracic inlet to the upper abdomen without contrast. MQ: [id number]_6 Patient characteristics: * Yhoi-vm-Sobdp: 1955; Age at exam: 67 years * Gender: Female * Lung Disease: Asymptomatic (no signs or symptoms of lung disease) * Number of Pack Years: 55 * Current smoker (=0) or Number of Years since Quit: 0 * Ordering provider and NPI: SAVANNA KENNY [id number] * Interpreting radiologist and NPI: Ervin [id number] Exam acquisition parameters: * Exam Date: 07/26/2022 4:27 PM * Site: [facility] * * CT System Utility Lineman: Navagis * CT System Model: Dual Source * [...] Descending stents in place; Right Coronary mild Casual Shoe Inspector (topogram) images: No additional findings. IMPRESSION: LungRADS category: 2 LungRADS modifier: None LungRADS 0 reason: n/a Recommendations: Continue annual screening with LDCT in 12 months. Other actionable findings: Reference: [employer]. Lung CT Screening Repor ting and Data System (Lung-RADS). Available at: http://www.acr.org/Quality-Safety/Resources/LungRADS Satellite Specialist: SRAVANI Transcribe Date/Time: Jul 27 2022 8:04A Dictated by : VEE GAMINO MD This examination was interpreted and the report review ed and electronically signed by: VEE GAMINO MD on Jul 27 2022 8:16AM EST [id number] CNPN on 07-13-2022 CNPN Telephone (VASSMD) [facility] VINCE Burk ([id number]) 1955 [place] Date Time Provider Department 07/13/22 TAWNY SELF During your visit today, we recorded the following inf ormation about you: Nevin Smith 07/13/2022 3:17 PM Signed Called patient to inform she needs testing prior to ap pt 07/17/22 She reports she is having significant pain in her righ t leg. The soonest testing appt [facility] has available is 07/25. Patient is tentatively [...] the office for other appt options in [place]. Maritza De Los Santos 07/13/2022 3:54 PM Signed Patient called back in regard to message left for her. Informed her that she needs to complete testing first before she has appt wi th Dr. Self. She verbalized understanding. I informed her of when her testing is on 07/26/2022 in [place] and rescheduled her appt with Dr. Self in [place] on 09/11/2022 since that was the soonest available she could go to. She's been added to the waitlist for this appt as well. Thank you. Maritza Galindo [facility] 07/17/2022 2:04 PM Signed Left message to advise appointment with Dr Self has been moved up to August 4ht @ 10:15 in the [place] . Allergies As of Date: 07/13/2022 (No [...] needed f or wheezing/shortness of breath. - whskjuegqsl-luqclcqxr-papdnlhx (TRELEGY ELLIPT A) 200-62.5-25 mcg inhalation powder [...] exertion [R06.09] 08/26/2021 Coronary artery disease involving metlakatla tolbetr*2020 Encounter Status:Closed by NEVIN SMITH on 2 OXIMETRY WITH AMBULATION on 07-09-2022 [facility] CNPN on 07-06-2022 CNPN Telephone ([facility]) [facility] VINCE Burk ([id number]) 1955 [facility] Date Time Provider Department 07/06/22 MARGARET SHRESTHA [facility] During your visit today, we recorded the following inf ormation about you: Margaret Shrestha MD 07/06/2022 11:30 AM Signed Order for oximetry Allergies As of Date: 07/06/2022 (No Known Allergies) Date Reviewed: 06/06/2022 Reviewed by: Zuleika Goetz - Fully Assessed Reason for Visit: Orders [681] Primary Visit Diagnosis:SOB (shortness of breath) [R06 .02] Order(s):OXIMETRY WITH AMBULATION [[id number]] Order #: 1 [id number]: 1 FUTURE Prescriptions as of 07/06/2022 - traZODone (DESYREL) 100 mg tablet Take 2 tablets by mouth daily at bedtime. - albuterol HFA (VENTOLIN HFA) 90 mcg/actuation inhale r Inhale 2 Puffs as instructed every 6 hours as needed f or wheezing/shortness of breath. - dqnrxhshiil-gfghyuhdu-bkiunuce (TRELEGY ELLIPT A) 200-62.5-25 mcg inhalation powder [...] exertion [R06.09] 08/26/2021 Coronary artery disease involving metlakatla tolbert*2020 Encounter Status:Closed by MARGARET SHRESTHA on 07/06/22 CNCO on 06-12-2022 CNCO Letter Text [facility] CNOV on 06-06-2022 CNOV Office Visit ([facility]) [facility] VINCE KOENIG ([id number]) 1955 [facility] Date Time Provider Department 06/06/22 10:30 AM MARGARET SHRESTHA [facility] During your visit today, we recorded the following inf ormation about you: Pulse Blood pressure Weight Height 77/minute 173/84 58 kg 1.621 m Margaret Shrestha MD 06/06/2022 10:48 AM [facility] DEPART[facility] OFFICE VISIT CONSULT 06/06/2022 Patient Name: Vince Koenig PRIMARY CARE PHYSICIAN: Ulises Hermosillo MD REASON FOR CONSULT: Asthma -COPD overlap syndrome/smok ing REFERRING PHYSICIAN: Savanna Kenny, * My final recommendations will be communicated to the [facility] care provider by way of the shared medical record for inter pending sale to [facility] providers or by letter via US mail for external providers. 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 Moderate reduction in DLCO Oxygen supplementation: 2 L/min MMRC Dyspnea Scale: 0. Not troubled by breathlessness except on strenuous exercise 1. Short of breath when hurrying or walking up a sligh t hill 2. Walks slower than contemporaries on [employer] he level because of breathlessness, or has to stop for breath when walking at own pace 3. Stops for breath after about 100 m or after a few m inutes on the level 4. Too breathless to leave t he house, or breathless when dressing or undressing Environmental/ Occupational Exposure History: Pets: No birds Asbestos: No significant exposure Silica: No significant exposure [place]: No significant exposure Mold: No significant exposure Hot tub: No significant exposure Fumes: No significant exposure Metal dust: No significant exposure Beryllium: No significant exposure Dust: No significant exposure Medications: No relevant exposure for interstitial hamilton g diseases PAST MEDICAL HISTORY Diagnosis Date - Acute pancreatitis 2010 [facility] - Alcohol use disorder 01/18/2016 [facility] - Anxiety 12/14/2015 - Bipolar affective disorder, currently active ([facility]) 0 01/18/2016 [facility] - Chronic bronchitis ([facility]) 07/26/2016 - Closed skull fracture ([facility]) 1994 [facility] - Coronary artery disease - DDD (degenerative disc disease), cervical - Endometriosis 2007 - Essential hypertension 12/14/2015 - GERD (gastroesophageal reflux disease) 03/13/2019 - History of colon polyps - History of gastric ulcer 12/14/2015 - HLD (hyperlipidemia) - Injury of left facial nerve 1994 - PAD (peripheral artery disease) ([facility]) 09/28/2019 - Recurrent major depression in partial remission ([facility] ) 12/14/2015 - S/P drug eluting coronary [...] FACIAL NERVE DECOMPRESSION AND/REPAIR Left 199 0 [facility] FAMILY HISTORY Problem Relation Age of Onset - Cancer Mother (more content not included)... CNPN on 06-04-2022 LINDAN Telephone (INTMWS) [facility][id number][facility] 1955 [facility] Date Time Provider Department 06/04/22 ULISES HERMOSILLO INTMWS During your visit today, we recorded the following inf ormation about you: Jaylyn Caceres RN 06/04/2022 10:11 AM [facility] reports she has received sever al orders for the Aerochamber spacer, electronically signed by Development Representative. State s she cannot accept this. Needs an actual prescription with name, address and signature of provider. Please send actual prescription. Fax number [phone]. Oly Smith APRN.CNP 06/04/2022 11:46 AM Signed See phone note from 05/31, this was faxed and then re f axed on 06/04 Oly Smith APRN.LINDA Blackman Ma 06/04/2022 12:50 PM Signed New order printed and faxed. 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 Encounter Status:Closed by NATALIE BLACKMAN MA on 06/04/22 JEOVANNY on 05-31-2022 JEOVANNY Telephone (INTMWS) Formerly [facility], 1928–1983 [facility] ARYAVINCE Fidencio ([id number]) 1955 [facility] Date Time Provider Department 05/31/22 ULISES HERMOSILLO INTMWS During your visit today, we recorded the following inf ormation about you: Christina Pete RN 05/31/2022 11:09 AM Signed Patient calls and is asking if provider can write orders for patient to have a smaller portable oxygen tank so it is easier for her t o go places. She gets current supplies from [facility]. Please review and advise, AAMIR Diego RN 06/01/2022 1:31 PM Signed Patient calls and is asking about a [facility] er for her inhalers. Patient asking if prescription can be sent for inhaler spacer? Pharmacy is [facility]. See Message below in regards to [...] Natalie Mills RN 06/04/2022 9:[address] [facility] in [place] called in and report they onl y received the second page for the aerochamber spacer. Re-faxed the order to [phone]. 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, unspecified chronic bronchitis type (HCC) [J42] Order(s):AEROCHAMBER SPACER [[id number]] Order #: [id number] Prescriptions as of 06/04/2022 - amLODIPine [...] 3-5 minutes, none*201807/07/2020 PAD (peripheral artery disease) ([facility]) [I73.9] 09/28/20 19 Anxiety and depression [F41.9, F32.A] 10/06/2019 Hypomagnesemia [E83.42] 10/22/2019 10/23/2019 Asthma [J45.909] 07/07/2020 07/07/2020 Prediabetes [R73.03] 02/04/2021 Chest pain [R07.9] 05/08/2021 Other chest pain [R07.89] 05/08/2021 Stenosis of carotid artery [I65.29] 05/08/2021 Mixed hyperlipidemia [E78.2] 05/08/2021 Abnormal stress test [R94.39] 08/26/2021 Dyspnea on exertion [R06.09] 08/26/2021 Coronary artery disease involving metlakatla tolbert*2020 Encounter Status:Closed by NATALIE BLACKMAN MA on 06/01/22 JEOVANNY on 05-23-2022 LINDAN Telephone (CAWSTR) Formerly [facility], [facility] CLARISSEVINCE NOVOA ([id number]) 1955 [facility] Date Time Provider Department 05/23/22 TRACY RAMIRES During your visit today, we recorded the following inf ormation about you: Shanelle Toribio RN 05/23/2022 4:51 PM Signed ----- Message from Tracy Ramires APRN.RECYCLING TECHNICIAN sent at 7:41 AM EDT ----- Please call patient and notify her echocardiogram reve als stable LV function and no significant valve disease. Thank you! Shanelle Toribio RN 05/23/2022 4:53 PM Signed Attempted to call pt. No answer. Left message for pt. to return call. Please advise of below and close encounter when pt calls back . Thank you. Shanelle Toribio RN [facility] 05/24/2022 10:23 AM Signed Patient returned call and was notified. Allergies As of Date: 05/23/2022 (No Known Allergies) Date Reviewed: 05/03/2022 Reviewed by: Tracy Ramires APRN.RECYCLING TECHNICIAN - Fully Assesse d Reason for Visit: [...] 3-5 minutes, none*201807/07/2020 PAD (peripheral artery disease) ([facility]) [I73.9] 09/28/20 19 Anxiety and depression [F41.9, F32.A] 10/06/2019 Hypomagnesemia [E83.42] 10/22/2019 10/23/2019 Asthma [J45.909] 07/07/2020 07/07/2020 Prediabetes [R73.03] 02/04/2021 Chest pain [R07.9] 05/08/2021 Other chest pain [R07.89] 05/08/2021 Stenosis of carotid artery [I65.29] 05/08/2021 Mixed hyperlipidemia [E78.2] 05/08/2021 Abnormal stress test [R94.39] 08/26/2021 Dyspnea on exertion [R06.09] 08/26/2021 Coronary artery disease involving metlakatla tolbert*2020 Encounter Status:Closed by MAGNUS TORRES on 05/24 CNOV on 05-21-2022 CNOV Office Visit (CARDWS) [facility] VINCE KOENIG ([id number]) 1955 [facility] Date Time Provider Department 05/21/22 3:30 PM ECHOCARDIOGRAM WSTR CARDWS During your visit today, we recorded the following inf ormation about you: Tracy Ramires APRN.RECYCLING TECHNICIAN 05/22/2022 7:41 AM Signed Please call patient and notify her echocardiogram reve als stable LV function and no significant valve disease. Thank you! Referring Provider: TRACY RAMIRES [[id number]] Allergies As of Date: 05/21/2022 (No Known Allergies) Date Reviewed: 05/03/2022 Reviewed by: Tracy Ramires APRN.RECYCLING TECHNICIAN - Fully Assesse d Visit Diagnosis:DIAZ (dyspnea on exertion) [R06.09] Order(s):MARILYN [[id number]] Order #: [id number]. #:[id number] Prescriptions as of 05/23/2022 - SYMBICORT [...] exertion [R06.09] 08/26/2021 Coronary artery disease involving metlakatla tolbert*2020 Encounter Status:Closed by TRACY RAMIRES on 05/23/22 ECHO on 05-21-2022 Echocardiography Echocardiography Report: Transthoracic Echo Normal [facility] Date of service: 05/21/2022 3:26:24 PM [place] DRAGLINE OPERATOR Ordering physician: TRACY RAMIRES Indication: Shortness of Breath Technologist: Christina Thompson [facility] Interpreting physician: Zaid Tinsley DO PATIENT: Name: MRS. VINCE KOENIG : 1955 Age: 67 years Gender: F History of hypertension, dyslipidemia and coronary art thomas disease. Previous cardiovascular interventions: PCI Primary rhythm: sinus. Height: 165.10 cm BSA: 1.63 m? Weight: 57.61 kg BMI: 21.1 kg/m? 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 Color Doppler was utilized t o [...] * * Final * * * CC [facility] age : [id number] [facility] CNOV on 05-11-2022 CNOV Office Visit (INTMWS) Normal [facility] VINCE KOENIG ([id number]) 1955 F Abdul Date Time Provider Department 05/11/22 1:40 PM ULISES HERMOSILLO INTJaylynWS During your visit today, we recorded the following inf ormation about you: Pulse Respiration Blood pressure Weight 99/minute 24/minute 118/78 58.1 kg Ulises Hermosillo MD 05/11/2022 3:49 PM Signed This note was created using [facility]. Subjective Patient presents with: Hospital Follow Up [...] Hypertension Recurrent Major Depression in Partial Remission (Hcc) Bipolar Affective Disorder, Currently Active (Formerly [facility]) History of Alcohol Abuse Chronic bronchitis ([facility]) Spinal Stenosis, Lumbar Region Without Neurogenic Jannette dication Radiculopathy, Lumbar Region Smoker Gerd (Gastroesophageal Reflux Disease) Seasonal Allergies Pad (Peripheral Artery Disease) (Formerly [facility]) Anxiety and Depression Prediabetes Chest Pain Other Chest Pain Stenosis of Carotid Artery Mixed Hyperlipidemia Abnormal Stress Test Dyspnea On Exertion Coronary Artery Disease Involving [place] Coronary Talia ry of [place] Heart Without Angina Pectoris Social History Tobacco [...] Basophil, Absolute 0.0 10 3/mcL Normal 0.0-0.3 [facility] ([place]) Comment on above: Performed By: #### Gustavo PRUETT, CMP, PBNP #### [address] [address] Basophils/100 WBC (Bld) 0.1 % Normal 0.0-2.5 [facility] ([place]) Comment on above: Performed By: #### Gustavo PRUETT FR, CMP, PBNP #### [address] [address] Eosinophil, Absolute 0.0 10 3/mcL Normal 0.0-0.7 [facility] ([place]) Comment on above: Performed By: #### Gustavo PRUETT FR, CMP, PBNP #### [address] [address] Eosinophils/100 WBC (Bld) 0.0 % Normal 0.0-6.0 Pending sale to [facility] ([place]) Comment on above: Performed By: #### Gustavo PRUETT FR, CMP, PBNP #### [address] [address] Lymphocyte, Absolute 0.6 10 3/mcL Low 0.9-4.3 [facility] ([place]) Comment on above: Performed By: #### JOSE JS G FR, CMP, PBNP #### [address] [address] Lymphocytes/100 WBC (Bld) 5.1 % Low 20.0-40.0 Pending sale to [facility] ([place]) Comment on above: Performed By: #### TROPHS, G FR, CMP, PBNP #### [address] [address] Monocyte, Absolute 0.3 10 3/mcL Normal 0.1-1.4 [facility] ([place]) Comment on above: Performed By: #### TROPHS, G FR, CMP, PBNP #### [address] [address] Monocytes/100 WBC (Bld) 2.4 % Normal 2.0-13.0 [facility] ([place]) Comment on above: Performed By: #### TROPHS, G FR, CMP, PBNP #### [address] [address] Neutrophils/100 WBC (Bld) 92.4 % High 50.0-75.0 Pending sale to [facility] ([place]) Comment on above: Performed By: #### TROPHS, G FR, CMP, PBNP #### [address] [address] .GFR on 05-05-2022 GFR >60 Normal [facility] ([place]) Comment on above: Result Comment: GFR Population mean for Afri can Slovak, Non- Americans Ages 20-29 = 116 mL/min/1.73 [...] #### TROPHS, G FR, CMP, PBNP #### [address] [address] GFR Non- >60 Normal [facility] ([place]) Comment on above: Result Comment: GFR Population mean for Afri can Slovak, Non- Americans Ages 20-29 = 116 mL/min/1.73 [...] By: #### Gustavo PRUETT, CMP, PBNP #### [address] [address] .MDW on 05-05-2022 Monocyte Distribution Width Not performed Normal 0.00-20.00 [facility] ([place]) Comment on above: Result Comment: MDW testing performed only on adult ER patients between the ages of 18-89 ye ars. Performed By: #### Gustavo PRUETT, CMP, PBNP #### [address] [address] .NEUABS on 05-05-2022 Neutrophil, Absolute 10.8 10 3/mcL High 2.3-8.1 [facility] ([place]) Comment on above: Performed By: #### Gustavo PRUETT FR, CMP, PBNP #### [address] [address] BMP on 05-05-2022 BUN/Creatinine Ratio 29.6 ratio High 10.0-22.0 [facility] ([place]) Comment on above: Performed By: #### Gustavo PRUETT FR, CMP, PBNP #### [address] [address] Calcium [Mass/Vol] 8.5 mg/dL Low 8.7-10.4 [facility] ([place]) Comment on above: Performed By: #### Gustavo PRUETT FR, CMP, PBNP #### [address] [address] Chloride [Moles/Vol] 106 mmol/L Normal 98-110 [facility] ([place]) Comment on above: Performed By: #### Gustavo PRUETT, CMP, PBNP #### [address] [address] CO2 [Moles/Vol] 32 mmol/L Normal 22-32 [facility] ([place]) Comment on above: Performed By: #### Gustavo PRUETT, CMP, PBNP #### [address] [address] Creatinine [Mass/Vol] 0.71 mg/dL Normal 0.50-1.20 [facility] ([place]) Comment on above: Performed By: #### Gustavo PRUETT, CMP, PBNP #### [address] [address] Electrolyte Balance 3.0 mEq/L Low 4.0-15.0 [facility] ([place]) Comment on above: Performed By: #### Gustavo PRUETT, CMP, PBNP #### [address] [address] Glucose [Mass/Vol] 224 mg/dL High 82-115 [facility] ([place]) Comment on above: Performed By: #### Gustavo PRUETT, CMP, PBNP #### [address] [address] Potassium [Moles/Vol] 4.5 mmol/L Normal 3.5-5.0 [facility] ([place]) Comment on above: Performed By: #### Gustavo PRUETT, CMP, PBNP #### [address] [address] Sodium [Moles/Vol] 141 mmol/L Normal 136-145 [facility] ([place]) Comment on above: Performed By: #### FLYNN G FR, CMP, PBNP #### [address] [address] Urea nitrogen [Mass/Vol] 21.0 mg/dL Normal 8.0-22.0 [facility] ([place]) Comment on above: Performed By: #### JOSE JS, G FR, CMP, PBNP #### [address] [address] CBC on 05-05-2022 Erythrocyte distribution width 16.5 % High 11.5-15.5 [facility] ([place]) (RBC) [Ratio] Comment on above: Performed By: #### JOSE JS G FR, CMP, PBNP #### [address] [address] Hematocrit (Bld) [Volume 38.3 % Normal 34.0-46.0 [facility] ([place]) fraction] Comment on above: Performed By: #### JOSE JS G FR, CMP, PBNP #### [address] [address] Hgb 12.2 G/dL Normal 12.0-16.0 [facility] ([place]) Comment on above: Performed By: #### TROPHS G FR, CMP, PBNP #### [address] [address] MCH (RBC) [Entitic mass] 30.9 pg Normal 27.0-33.0 [facility] ([place]) Comment on above: Performed By: #### TROPHS, G FR, CMP, PBNP #### [address] [address] MCHC 32.0 G/dL Normal 32.0-36.0 [facility] ([place]) Comment on above: Performed By: #### TROPHS, G FR, CMP, PBNP #### [address] [address] MCV (RBC) [Entitic vol] 96.7 fL Normal 80.0-99.0 [facility] ([place]) Comment on above: Performed By: #### TROPHS, G FR, CMP, PBNP #### [address] [address] Platelet 285 10 3/mcL Normal 150-450 [facility] ([place]) Comment on above: Performed By: #### TROPHS, G FR, CMP, PBNP #### [address] [address] Platelet mean volume (Bld) 8.9 fL Normal 6.6-10.5 [facility] ([place]) [Entitic vol] Comment on above: Performed By: #### JOSE JS, G FR, CMP, PBNP #### [address] [address] RBC 3.96 10 6/mcL Low 4.10-5.30 [facility] ([place]) Comment on above: Performed By: #### TROPHS, G FR, CMP, PBNP #### [address] [address] WBC 11.6 10 3/mcL High 4.5-10.8 [facility] ([place]) Comment on above: Performed By: #### JOSE JS G FR, CMP, PBNP #### [address] [address] LABORATORY Ordered By: SYSTEM SYSTEM on 05-05-2022 [...] 16.5 % Invalid 11.5 - 15.5 % AH Workflow SS distribution width Interpretation Code (RBC) [Ratio] GFR/1.73 sq ml/min/1.73sqm Invalid AH Chemistry S M.predicted among Interpretation Code blacks MDRD (S/P/Bld) [Vol rate/Area] GFR/1.73 sq ml/min/1.73sqm Invalid AH Chemistry S M.predicted among Interpretation Code non-blacks MDRD (S/P/Bld) [Vol rate/Area] Glucose [Mass/Vol] 224 mg/dL Invalid 82 - 115 mg/dL AH ADM SS Interpretation Code Hematocrit (Bld) 38.3 % Invalid 34.0 - 46.0 % AH Workflo w SS [Volume fraction] Interpretation Code Hemoglobin (Bld) 12.2 G/dL Invalid 12.0 - 16.0 AH Workflow SS [Mass/Vol] Interpretation Code G/dL Lymphocytes (Bld) 0.6 103/mcL Invalid 0.9 - 4.3 AH Workflo [...] 0.3 103/mcL Invalid Interpretation 0.1 - 1.4 AH Workflow SS [#/Vol] Code 10^3/mcL Monocytes/100 WBC 2.4 % Invalid Interpretation 2.0 - 13.0 % AH Workflow SS (Bld) Code Neutrophils (Bld) 10.8 103/mcL Invalid Interpretation 2.3 - 8.1 Workflow [...] 22.0 mg/dL ADM SS [Mass/Vol] Code Urea 29.6 ratio Invalid Interpretation 10.0 - 22.0 AD M SS nitrogen/Creatinine Code ratio [Mass ratio] WBC 11.6 103/mcL Invalid Interpretation 4.5 - 10.8 Wo rkflow SS Code 10^3/mcL .Auto Diff on 05-04-2022 Basophil, Absolute 0.0 10 3/mcL Normal 0.0-0.3 [facility] ([place]) Comment on above: Performed By: #### TROPHS, G FR, CMP, PBNP #### [address] [address] Basophils/100 WBC (Bld) 0.2 % Normal 0.0-2.5 [facility] ([place]) Comment on above: Performed By: #### TROPHS, G FR, CMP, PBNP #### [address] [address] Eosinophil, Absolute 0.0 10 3/mcL Normal 0.0-0.7 [facility] ([place]) Comment on above: Performed By: #### TROPHS, G FR, CMP, PBNP #### [address] [address] Eosinophils/100 WBC (Bld) 0.0 % Normal 0.0-6.0 Pending sale to [facility] ([place]) Comment on above: Performed By: #### TROPHS, G FR, CMP, PBNP #### [address] [address] Lymphocyte, Absolute 0.6 10 3/mcL Low 0.9-4.3 [facility] ([place]) Comment on above: Performed By: #### TROPHS, G FR, CMP, PBNP #### [address] [address] Lymphocytes/100 WBC (Bld) 5.0 % Low 20.0-40.0 Pending sale to [facility] ([place]) Comment on above: Performed By: #### TROPHS, G FR, CMP, PBNP #### [address] [address] Monocyte, Absolute 0.3 10 3/mcL Normal 0.1-1.4 [facility] ([place]) Comment on above: Performed By: #### TROPHS, G FR, CMP, PBNP #### [address] [address] Monocytes/100 WBC (Bld) 2.4 % Normal 2.0-13.0 [facility] ([place]) Comment on above: Performed By: #### TROPHS, G FR, CMP, PBNP #### [address] [address] Neutrophils/100 WBC (Bld) 92.4 % High 50.0-75.0 Pending sale to [facility] ([place]) Comment on above: Performed By: #### TROPHS, G FR, CMP, PBNP #### [address] [address] .GFR on 05-04-2022 GFR >60 Normal [facility] ([place]) Comment on above: Result Comment: GFR Population mean for Afri can Slovak, Non- Americans Ages 20-29 = 116 mL/min/1.73 [...] By: #### Gustavo PRUETT, CMP, PBNP #### [address] [address] GFR Non- >60 Normal [facility] ([place]) Comment on above: Result Comment: GFR Population mean for Afri can Slovak, Non- Americans Ages 20-29 = 116 mL/min/1.73 [...] By: #### Gustavo PRUETT, CMP, PBNP #### [address] [address] .MDW on 05-04-2022 Monocyte Distribution Width Not performed Normal 0.00-20.00 [facility] ([place]) Comment on above: Result Comment: MDW testing performed only on adult ER patients between the ages of 18-89 ye ars. Performed By: #### Gustavo PRUETT, CMP, PBNP #### [address] [address] .NEUABS on 05-04-2022 Neutrophil, Absolute 10.5 10 3/mcL High 2.3-8.1 [facility] ([place]) Comment on above: Performed By: #### Gustavo PRUETT, CMP, PBNP #### [address] [address] BMP on 05-04-2022 BUN/Creatinine Ratio 24.7 ratio High 10.0-22.0 [facility] ([place]) Comment on above: Performed By: #### TROPHS, G FR, CMP, PBNP #### [address] [address] Calcium [Mass/Vol] 8.7 mg/dL Normal 8.7-10.4 [facility] ([place]) Comment on above: Performed By: #### TROPHS, G FR, CMP, PBNP #### [address] [address] Chloride [Moles/Vol] 108 mmol/L Normal 98-110 [facility] ([place]) Comment on above: Performed By: #### TROPHS, G FR, CMP, PBNP #### [address] [address] CO2 [Moles/Vol] 30 mmol/L Normal 22-32 [facility] ([place] Comment on above: Performed By: #### TROPHS, G FR, CMP, PBNP #### [address] [address] Creatinine [Mass/Vol] 0.85 mg/dL Normal 0.50-1.20 [facility] ([place]) Comment on above: Performed By: #### TROPHS, G FR, CMP, PBNP #### [address] [address] Electrolyte Balance 3.0 mEq/L Low 4.0-15.0 [facility] ([place]) Comment on above: Performed By: #### TROPHS, G FR, CMP, PBNP #### [address] [address] Glucose [Mass/Vol] 150 mg/dL High 82-115 [facility] ([place]) Comment on above: Performed By: #### TROPHS, G FR, CMP, PBNP #### [address] [address] Potassium [Moles/Vol] 4.8 mmol/L Normal 3.5-5.0 [facility] ([place]) Comment on above: Performed By: #### Gustavo PRUETT FR, CMP, PBNP #### [address] [address] Sodium [Moles/Vol] 141 mmol/L Normal 136-145 [facility] ([place]) Comment on above: Performed By: #### JOSE JS G FR, CMP, PBNP #### [address] [address] Urea nitrogen [Mass/Vol] 21.0 mg/dL Normal 8.0-22.0 [facility] ([place]) Comment on above: Performed By: #### Gustavo PRUETT, CMP, PBNP #### [address] [address] CBC on 05-04-2022 Erythrocyte distribution width 16.6 % High 11.5-15.5 [facility] ([place]) (RBC) [Ratio] Comment on above: Performed By: #### FLYNN G FR, CMP, PBNP #### [address] [address] Hematocrit (Bld) [Volume 39.9 % Normal 34.0-46.0 [facility] ([place]) fraction] Comment on above: Performed By: #### TROPHS G FR, CMP, PBNP #### [address] [address] Hgb 12.8 G/dL Normal 12.0-16.0 [facility] ([place]) Comment on above: Performed By: #### TROPHS G FR, CMP, PBNP #### [address] [address] MCH (RBC) [Entitic mass] 30.8 pg Normal 27.0-33.0 [facility] ([place]) Comment on above: Performed By: #### TROPHS, G FR, CMP, PBNP #### [address] [address] MCHC 32.0 G/dL Normal 32.0-36.0 [facility] ([place]) Comment on above: Performed By: #### JOSE JS G FR, CMP, PBNP #### [address] [address] MCV (RBC) [Entitic vol] 96.4 fL Normal 80.0-99.0 [facility] ([place]) Comment on above: Performed By: #### TROPHS G FR, CMP, PBNP #### [address] [address] Platelet 282 10 3/mcL Normal 150-450 [facility] ([place]) Comment on above: Performed By: #### JOSE JS G FR, CMP, PBNP #### [address] [address] Platelet mean volume (Bld) 8.9 fL Normal 6.6-10.5 [facility] ([place]) [Entitic vol] Comment on above: Performed By: #### JOSE JS G FR, CMP, PBNP #### [address] [address] RBC 4.14 10 6/mcL Normal 4.10-5.30 [facility] ([place]) Comment on above: Performed By: #### TROPHS, G FR, CMP, PBNP #### [address] [address] WBC 11.4 10 3/mcL High 4.5-10.8 [facility] ([place]) Comment on above: Performed By: #### TROPHS, G FR, CMP, PBNP #### [address] [address] LABORATORY Ordered By: SYSTEM SYSTEM on 05-04-2022 [...] 30.8 pg Invalid 27.0 - 33.0 pg Work flow SS mass] Interpretation Code MCHC 32.0 G/dL Invalid 32.0 - 36.0 Workflow SS Interpretation Code G/dL MCV (RBC) [Entitic 96.4 fL Invalid 80.0 - 99.0 fL Work flow SS vol] Interpretation Code Monocyte Not Performed 2 Invalid 0.00 - 20.00 Hematolog y S [...] Basophil, Absolute 0.1 10 3/mcL Normal 0.0-0.3 [facility] ([place]) Comment on above: Performed By: #### FLYNN G FR, CMP, PBNP #### [address] [address] Basophils/100 WBC (Bld) 0.7 % Normal 0.0-2.5 [facility] ([place]) Comment on above: Performed By: #### TROPHS, G FR, CMP, PBNP #### [address] [address] Eosinophil, Absolute 0.0 10 3/mcL Normal 0.0-0.7 [facility] ([place]) Comment on above: Performed By: #### TROPHS, G FR, CMP, PBNP #### [address] [address] Eosinophils/100 WBC (Bld) 0.3 % Normal 0.0-6.0 Pending sale to [facility] ([place]) Comment on above: Performed By: #### TROPHS, G FR, CMP, PBNP #### [address] [address] Lymphocyte, Absolute 2.3 10 3/mcL Normal 0.9-4.3 [facility] ([place]) Comment on above: Performed By: #### TROPHS, G FR, CMP, PBNP #### [address] [address] Lymphocytes/100 WBC (Bld) 25.2 % Normal 20.0-40.0 Pending sale to [facility] ([place]) Comment on above: Performed By: #### TROPHS, G FR, CMP, PBNP #### [address] [address] Monocyte, Absolute 1.0 10 3/mcL Normal 0.1-1.4 [facility] ([place]) Comment on above: Performed By: #### TROPHS, G FR, CMP, PBNP #### [address] [address] Monocytes/100 WBC (Bld) 10.8 % Normal 2.0-13.0 [facility] ([place]) Comment on above: Performed By: #### TROPHS, G FR, CMP, PBNP #### [address] [address] Neutrophils/100 WBC (Bld) 63.0 % Normal 50.0-75.0 Pending sale to [facility] ([place]) Comment on above: Performed By: #### TROPHS, G FR, CMP, PBNP #### [address] [address] .GFR on 05-03-2022 GFR Non- >60 Normal [facility] ([place]) Comment on above: Result Comment: GFR Population mean for Afri can Slovak, Non- Americans Ages 20-29 = 116 mL/min/1.73 [...] #### TROPHS, G FR, CMP, PBNP #### [address] [address] GFR >60 Normal [facility] ([place]) Comment on above: Result Comment: GFR Population mean for Afri can Slovak, Non- Americans Ages 20-29 = 116 mL/min/1.73 [...] #### TROPHS, G FR, CMP, PBNP #### [address] [address] .MDW on 05-03-2022 Monocyte Distribution Width Not performed Normal 0.00-20.00 [facility] ([place]) Comment on above: Result Comment: MDW testing performed only on adult ER patients between the ages of 18-89 ye ars. Performed By: #### JOSE JS G FR, CMP, PBNP #### [address] [address] .NEUABS on 05-03-2022 Neutrophil, Absolute 5.6 10 3/mcL Normal 2.3-8.1 [facility] ([place]) Comment on above: Performed By: #### JOSE JS G FR, CMP, PBNP #### [address] [address] BMP on 05-03-2022 BUN/Creatinine Ratio 17.9 ratio Normal 10.0-22.0 [facility] ([place]) Comment on above: Performed By: #### FLYNN G FR, CMP, PBNP #### [address] [address] Calcium [Mass/Vol] 8.7 mg/dL Normal 8.7-10.4 [facility] ([place]) Comment on above: Performed By: #### FLYNN G FR, CMP, PBNP #### [address] [address] Chloride [Moles/Vol] 110 mmol/L Normal 98-110 [facility] ([place]) Comment on above: Performed By: #### TROPHS G FR, CMP, PBNP #### [address] [address] CO2 [Moles/Vol] 28 mmol/L Normal 22-32 [facility] ([place]) Comment on above: Performed By: #### TROPHS G FR, CMP, PBNP #### [address] [address] Creatinine [Mass/Vol] 0.84 mg/dL Normal 0.50-1.20 [facility] ([place]) Comment on above: Performed By: #### TROPHS G FR, CMP, PBNP #### [address] [address] Electrolyte Balance 6.0 mEq/L Normal 4.0-15.0 [facility] ([place]) Comment on above: Performed By: #### Gustavo PRUETT, CMP, PBNP #### [address] [address] Glucose [Mass/Vol] 96 mg/dL Normal 82-115 [facility] ([place]) Comment on above: Performed By: #### Gustavo PRUETT, CMP, PBNP #### [address] [address] Potassium [Moles/Vol] 4.5 mmol/L Normal 3.5-5.0 [facility] ([place]) Comment on above: Performed By: #### Gustavo PRUETT, CMP, PBNP #### [address] [address] Sodium [Moles/Vol] 144 mmol/L Normal 136-145 [facility] ([place]) Comment on above: Performed By: #### Gustavo PRUETT, CMP, PBNP #### [address] [address] Urea nitrogen [Mass/Vol] 15.0 mg/dL Normal 8.0-22.0 [facility] ([place]) Comment on above: Performed By: #### Gustavo PRUETT, CMP, PBNP #### [address] [address] CBC on 05-03-2022 Erythrocyte distribution width 16.3 % High 11.5-15.5 [facility]) (RBC) [Ratio] Comment on above: Performed By: #### Gustavo PRUETT, CMP, PBNP #### [address] [address] Hematocrit (Bld) [Volume 40.5 % Normal 34.0-46.0 [facility] ([place]) fraction] Comment on above: Performed By: #### FLYNN G FR, CMP, PBNP #### [address] [address] Hgb 13.2 G/dL Normal 12.0-16.0 [facility] ([place]) Comment on above: Performed By: #### TROPHS, G FR, CMP, PBNP #### [address] [address] MCH (RBC) [Entitic mass] 31.4 pg Normal 27.0-33.0 [facility] ([place]) Comment on above: Performed By: #### TROPHS, G FR, CMP, PBNP #### [address] [address] MCHC 32.6 G/dL Normal 32.0-36.0 [facility] ([place]) Comment on above: Performed By: #### TROPHS, G FR, CMP, PBNP #### [address] [address] MCV (RBC) [Entitic vol] 96.1 fL Normal 80.0-99.0 [facility] ([place]) Comment on above: Performed By: #### TROPHS, G FR, CMP, PBNP #### [address] [address] Platelet 290 10 3/mcL Normal 150-450 [facility] ([place]) Comment on above: Performed By: #### TROPHS, G FR, CMP, PBNP #### [address] [address] Platelet mean volume (Bld) 8.9 fL Normal 6.6-10.5 [facility] ([place]) [Entitic vol] Comment on above: Performed By: #### TROPHS, G FR, CMP, PBNP #### [address] [address] RBC 4.21 10 6/mcL Normal 4.10-5.30 [facility] ([place]) Comment on above: Performed By: #### TROPHS, G FR, CMP, PBNP #### [address] [address] WBC 8.9 10 3/mcL Normal 4.5-10.8 [facility] ([place]) Comment on above: Performed By: #### TROPHS, G FR, CMP, PBNP #### [place] [address] [place], [place] [address] LABORATORY Ordered By: SYSTEM SYSTEM o n 05-03-2022 Basophils (Bld) 0.1 103/mcL Invalid 0.0 [...] Creatinine 0.84 mg/dL Invalid 0.50 - 1.20 ADM SS [...] 96 mg/dL Invalid 82 - 115 mg/dL ADM SS Interpretation Code Hematocrit (Bld) 40.5 % Invalid 34.0 - 46.0 % Workflo [...] % Workflow SS (Bld) Code Neutrophils (Bld) 5.6 [...] 4.21 106/mcL Invalid Interpretation 4.10 - 5.30 AH Workflow SS Code 10^6/mcL Sodium [Moles/Vol] 144 mmol/L Invalid Interpretation 136 - 145 mE q/L AH ADM SS Code Urea nitrogen 15.0 mg/dL Invalid Interpretation 8.0 - 22.0 mg/dL ADM SS [Mass/Vol] Code Urea 17.9 ratio Invalid Interpretation 10.0 - 22.0 AD M SS nitrogen/Creatinine Code ratio [Mass ratio] WBC 8.9 103/mcL Invalid Interpretation 4.5 - 10.8 Wo rkflow SS Code 10^3/mcL MG on 05-03-2022 Magnesium [Mass/Vol] 1.8 mg/dL Normal 1.6-2.4 [facility] ([place]) Comment on above: Performed By: #### TROPHS G FR, CMP, PBNP #### [address] [address] .Auto Diff on 05-02-2022 Basophil, Absolute 0.1 10 3/mcL Normal 0.0-0.2 [facility] ([place]) Comment on above: Performed By: #### TROPHS, G FR, CMP, PBNP #### [address] [address] Basophils/100 WBC (Bld) 0.9 % Normal 0.0-2.5 [facility] ([place]) Comment on above: Performed By: #### TROPHS, G FR, CMP, PBNP #### [address] [address] Eosinophil, Absolute 0.1 10 3/mcL Normal 0.0-0.4 [facility] ([place]) Comment on above: Performed By: #### TROPHS, G FR, CMP, PBNP #### [address] [address] Eosinophils/100 WBC (Bld) 0.8 % Normal 0.0-7.0 Pending sale to [facility] ([place]) Comment on above: Performed By: #### TROPHS, G FR, CMP, PBNP #### [address] [address] Lymphocyte, Absolute 2.1 10 3/mcL Normal 0.8-3.9 [facility] ([place]) Comment on above: Performed By: #### TROPHS, G FR, CMP, PBNP #### [address] [address] Lymphocytes/100 WBC (Bld) 16.7 % Normal 10.0-50.0 [facility] to [facility] ([place]) Comment on above: Performed By: #### TROPHS, G FR, CMP, PBNP #### [address] [address] Monocyte, Absolute 0.9 10 3/mcL Normal 0.2-1.0 [facility] ([place]) Comment on above: Performed By: #### TROPHS, G FR, CMP, PBNP #### [address] [address] Monocytes/100 WBC (Bld) 7.0 % Normal 1.7-13.0 [facility] ([place]) Comment on above: Performed By: #### TROPHS, G FR, CMP, PBNP #### [address] [address] Neutrophils/100 WBC (Bld) 74.6 % Normal 37.0-80.0 [facility]ending [facility] to [facility] ([place]) Comment on above: Performed By: #### TROPHS G FR, CMP, PBNP #### [address] [address] .GFR on 05-02-2022 GFR 61 ml/min/1.73sqm Normal Pending sale to [facility] ([place]) Comment on above: Result Comment: GFR Population mean for Afri can Slovak, Non- Americans Ages 20-29 = 116 mL/min/1.73 sq.m. Ages 30-39 = 107 mL/min/1.73 sq.m. Ages 40-49 = 99 mL/min/1.73 sq.m. Ages 50-59 = 93 mL/min/1.73 sq.m. Ages 60-69 = 85 mL/min/1.73 sq.m. Ages 70+ = 75 mL/min/1.73 sq .m. Chronic Kidney Disease: Less than 60 mL/min/1.73 square meters End Stage Renal Disease: Les s than 15 mL/min/1.73 square meters Performed By: #### JOSE JS, G FR, CMP, PBNP #### Kathi [address] [address] GFR Non- 50 ml/min/1.73sqm Normal [facility] ([place]) Comment on above: Result Comment: GFR Population mean for Afri can Slovak, Non- Americans Ages 20-29 = 116 mL/min/1.73 sq.m. Ages 30-39 = 107 mL/min/1.73 sq.m. Ages 40-49 = 99 mL/min/1.73 sq.m. Ages 50-59 = 93 mL/min/1.73 sq.m. Ages 60-69 = 85 mL/min/1.73 sq.m. Ages 70+ = 75 mL/min/1.73 sq .m. Chronic Kidney Disease: Less than 60 mL/min/1.73 square meters End Stage Renal Disease: Les s than 15 mL/min/1.73 square meters Performed By: #### JOSE JS, G FR, CMP, PBNP #### Kathi [address] [address] .MDW on 05-02-2022 Monocyte Distribution Width 17.05 Normal 0.00-20.00 [facility] ([place]) Comment on above: Result Comment: For ED adult patients suspected of sepsis, MDW<=20.0 does not rule out sepsis or risk of sepsis Performed By: #### FLYNN G FR, CMP, PBNP #### Kathi [address] [address] .NEUABS on 05-02-2022 Neutrophil, Absolute 9.4 10 3/mcL High 2.9-6.2 [facility] ([place]) Comment on above: Performed By: #### TROPHS, G FR, CMP, PBNP #### Kathi [address] [address] BMP on 05-02-2022 BUN/Creatinine Ratio 9 ratio Normal 7-27 [facility] ([place]) Comment on above: Performed By: #### TROPHS, G FR, CMP, PBNP #### [address] [address] Calcium [Mass/Vol] 8.8 mg/dL Normal 8.4-10.2 [facility] ([place]) Comment on above: Performed By: #### Gustavo PRUETT FR, CMP, PBNP #### [address] [address] Chloride [Moles/Vol] 102 mmol/L Normal 98-107 [facility] ([place]) Comment on above: Performed By: #### FLYNN G FR, CMP, PBNP #### [address] [address] CO2 [Moles/Vol] 29 mmol/L Normal 23-31 [facility] ([place]) Comment on above: Performed By: #### Gustavo PRUETT, CMP, PBNP #### [address] [address] Creatinine [Mass/Vol] 1.09 mg/dL High 0.55-1.02 [facility] ([place]) Comment on above: Performed By: #### Gustavo PRUETT, CMP, PBNP #### [address] [address] Electrolyte Balance 7.0 mEq/L Normal 4.0-15.0 [facility] ([place]) Comment on above: Performed By: #### FLYNN G FR, CMP, PBNP #### [address] [address] Glucose [Mass/Vol] 194 mg/dL High 80-115 [facility] ([place]) Comment on above: Performed By: #### TROPHS G FR, CMP, PBNP #### [address] [address] Potassium [Moles/Vol] 4.1 mmol/L Normal 3.5-5.1 [facility] ([place]) Comment on above: Performed By: #### FLYNN G FR, CMP, PBNP #### [address] [address] Sodium [Moles/Vol] 138 mmol/L Normal 136-145 [facility] ([place]) Comment on above: Performed By: #### TROPHS, G FR, CMP, PBNP #### [address] [address] Urea nitrogen [Mass/Vol] 10 mg/dL Normal 7-18 [facility] ([place]) Comment on above: Performed By: #### TROPHS, G FR, CMP, PBNP #### [address] [address] CBC on 05-02-2022 Erythrocyte distribution width 17.0 % High 11.5-14.5 [facility] ([place]) (RBC) [Ratio] Comment on above: Performed By: #### TROPHS, G FR, CMP, PBNP #### [address] [address] Hematocrit (Bld) [Volume 45.4 % Normal 37.0-47.0 [facility] ([place]) fraction] Comment on above: Performed By: #### TROPHS, G FR, CMP, PBNP #### [address] [address] Hgb 14.9 G/dL Normal 12.0-16.0 [facility] ([place]) Comment on above: Performed By: #### TROPHS, G FR, CMP, PBNP #### [address] [address] MCH (RBC) [Entitic mass] 31.4 pg High 27.0-31.2 [facility] ([place]) Comment on above: Performed By: #### TROPHS, G FR, CMP, PBNP #### [address] [address] MCHC 32.9 G/dL Low 33.0-37.0 [facility] ([place]) Comment on above: Performed By: #### TROPHS, G FR, CMP, PBNP #### [address] [address] MCV (RBC) [Entitic vol] 95.5 fL High 80.0-94.0 [facility] ([place]) Comment on above: Performed By: #### Gustavo PRUETT, CMP, PBNP #### [address] [address] Platelet 351 10 3/mcL Normal 130-400 [facility] ([place]) Comment on above: Performed By: #### Gustavo PRUETT FR, CMP, PBNP #### [address] [address] Platelet mean volume (Bld) 9.0 fL Normal 7.4-10.4 [facility] ([place]) [Entitic vol] Comment on above: Performed By: #### Gustavo PRUETT FR, CMP, PBNP #### [address] [address] RBC 4.76 10 6/mcL Normal 4.20-5.40 [facility] ([place]) Comment on above: Performed By: #### Gustavo PRUETT, CMP, PBNP #### [address] [address] WBC 12.6 10 3/mcL High 4.6-10.8 [facility] ([place]) Comment on above: Performed By: #### Gustavo PRUETT, CMP, PBNP #### [address] [address] COVD19 on 05-02-2022 Date of Onset 20220430 Invalid Interpretation Code [facility] ([place]) Comment on above: Performed By: #### Gustavo PRUETT FR, CMP, PBNP #### [address] [address] Employed in Healthcare No Normal [facility] ([place]) Comment on above: Performed By: #### Gustavo PRUETT FR, CMP, PBNP #### [address] [address] First Test No Normal [facility] ([place]) Comment on above: Performed By: #### Gustavo PRUETT FR, CMP, PBNP #### [address] [address] Hospitalized Yes [facility] ([place]) Comment on above: Performed By: #### TROPHS, G FR, CMP, PBNP #### [place] [address] ICU No [facility] ([place]) Comment on above: Performed By: #### TROPHS, G FR, CMP, PBNP #### [place] [address] [place] [address] Not [facility] ([place]) Comment on above: Performed By: #### TROPHS, G FR, CMP, PBNP #### [place] [address] [place] [address] Resides in Congregate Care Setting No [facility] ([place]) Comment on above: Performed By: #### TROPHS, G FR, CMP, PBNP #### [place] [address] SARS-CoV-2 (COVID-19) RNA Negative Normal Negative Pending sale to [facility] ([place]) IVANA+probe Ql (Unsp spec) Comment on above: Performed By: #### TROPHS, G FR, CMP, PBNP #### [place] [address] SARS-CoV-2 (COVID-19) RNA IVANA+probe Ql Normal [facility]) (Unsp spec) Comment on above: Result [...] By: #### Gustavo PRUETT, GENE, PBNP #### [facility] [address] [place], [place] [address] Symptomatic as Defined by CDC Yes Normal [facility] ([place]) Comment on above: Performed By: #### Gustavo PRUETT, CMP, PBNP #### [facility] [address] [place], [place] [address] LABORATORY Ordered By: Gina sandra on 05-02-2022 Blood Glucose Routine [facility] al Testing Reason (05/02/22 9:38 AM) Work Steven ne: Glucose 156 mg/dL Invalid Interpretation 82 - 115 [facility] [Mass/Vol] Code mg/dL Work Phone: [...] Code 10^3/mcL LABORATORY Ordered By: SYSTEM SYSTEM o n 05-02-2022 GFR 61 ml/min/1.73sqm Invalid Interpretation Code AO Chemistry S GFR Non- 50 ml/min/1.73sqm Invalid Interpretation Code AO Chemistry S Slovak PBNP on 05-02-2022 Natriuretic peptide B (Bld) 344 pg/mL High 0-125 [facility] ([place]) [Mass/Vol] Comment on above: Result Comment: NT-proBNP re sults of less than 300 pg/mL effectively rules out acute congestive h eart failure with 99% negative predictive value. Performed By: #### Gustavo PRUETT FR, CMP, PBNP #### [address] [address] TROPHS on 05-02-2022 Troponin I High Sensitivity 13.0 ng/L Normal 0.0-51.4 [facility] ([place]) Comment on above: Performed By: #### Gustavo PRUETT FR, CMP, PBNP #### [address] [address] XR CHEST 1 VIEW on 05-02-2022 XR CHEST 1 VIEW ORIGINAL Normal [facility] EXAMINATION: ([place]) ONE XRAY VIEW OF THE [...] SUZY Office Visit ([facility]) Normal [facility] VINCE KOENIG ([id number]) 1955 [facility] Time Provider Department 04/30/22 4:00 PM TRACY RAMIRES During your visit today, we recorded the following inf ormation about you: Pulse Blood pressure Weight 83/minute 138/75 57.6 kg Tracy Ramires APRN.RECYCLING TECHNICIAN 05/03/2022 2:36 PM Signed Chief Complaint Patient [...] and requests for refills were sent to [facility]. PAST MEDICAL HISTORY Diagnosis Date - Acute pancreatitis 2010 Maynor Cruz - Alcohol use disorder 01/18/2016 [facility] - Anxiety 12/14/2015 - Bipolar affective disorder, currently active ([facility]) 0 01/18/2016 Dr[facility] - Chronic bronchitis ([facility]) 07/26/2016 - Closed skull fracture ([facility]) 1994 [facility], [facility] - Coronary artery disease - DDD (degenerative disc disease), cervical - Endometriosis 2007 - Essential hypertension 12/14/2015 - GERD (gastroesophageal reflux disease) 03/13/2019 - History of colon polyps - History of gastric ulcer 12/14/2015 - HLD (hyperlipidemia) - Injury of left facial nerve 1994 - PAD (peripheral artery disease) ([facility]) 09/28/2019 - Recurrent major depression in partial remission ([facility] ) 12/14/2015 - S/P drug eluting coronary [...] FACIAL NERVE DECOMPRESSION AND/REPAIR Left 199 0 [facility] FAMILY HISTORY Problem Relation Age of Onset [...] included)... CNOV on 03-13-2022 CNOV Office Visit ([facility]) Normal [facility] VINCE KOENIG ([id number]) 1955 [facility] Date Time Provider Department 03/13/22 2:00 PM SAVANNA KENNY [facility] During your visit today, we recorded the following inf ormation about you: Pulse Blood pressure Weight Height 81/minute 157/76 60.9 kg 1.651 m Savanna Kenny, BULB BRANDER.RECYCLING TECHNICIAN 05/30/2022 8:33 AM Baron saravia LUNG SCREENING VISIT PRIMARY CARE PHYSICIAN: Ulises [...] 50% of waking hrs. Modified Medical [employer] [place] Dyspnea Scale (MMRC) On level ground I [...] HISTORY Diagnosis Date - Acute pancreatitis 2010 Maynor Cruz - Alcohol use disorder 01/18/2016 [facility] - Anxiety 12/14/2015 - Bipolar affective disorder, currently active ([facility]) 0 01/18/2016 Dr[facility] - Chronic bronchitis ([facility]) 07/26/2016 - Closed skull fracture ([facility]) 1994 [facility], [facility] - Coronary artery disease - DDD (degenerative disc disease), cervical - Endometriosis 2007 - Essential hypertension 12/14/2015 - GERD (gastroesophageal reflux disease) 03/13/2019 - History of colon polyps - History of gastric ulcer 12/14/2015 - HLD (hyperlipidemia) - Injury of left facial nerve 1994 - PAD (peripheral artery disease) ([facility]) 09/28/2019 - Recurrent major depression in partial remission ([facility] ) 12/14/2015 - S/P drug eluting coronary [...] FACIAL NERVE DECOMPRESSION AND/REPAIR Left 199 0 [facility] FAMILY HISTORY Problem Relation Age of Onset [...] * * *Final Report* * * Normal [facility] DATE OF EXAM: Oct 10 [...] of fracture of the olecranon p rocess. Satellite Specialist: SRAVANI Transcribe Date/Time: Oct 10 2021 2:44P Dictated by : ERENDIRA PAREDES MD This examination was interpreted and the report review ed and electronically signed by: ERENDIRA PAREDES MD on Oct 10 2021 2:51PM EST [id number] LINDAN on 09-28-2021 LINDAN Telephone (AGCARDPOB) Normal [facility] ARYAVINCE Fidencio ([id number]) 1955 F Medical Date Time Provider Department Center 09/28/21 TRACY RAMIRES During your visit today, we recorded the following inf ormation about you: Mely Trinidad LPN 09/28/2021 10:10 AM Signed ----- Message from Tracy Ramires APRN.RECYCLING TECHNICIAN sent at 1 11/28/2020 8:08 AM EST [...] of test results and Lipitor dose vale , she verbalized understanding and is agreeable. Marta Cui RN Allergies As of Date: 09/28/2021 (No Known Allergies) Date Reviewed: 09/28/2021 Reviewed by: Tracy Ramires APRN.RECYCLING TECHNICIAN - Fully Assesse d Reason for Visit: [...] exertion [R06.00] 08/26/2021 Coronary artery disease involving metlakatla tolbert*2020 Encounter Status:Closed by MELY TRINIDAD on 01/04/22 CBC panel Auto (Bld) on 09-27-2021 Erythrocyte distribution width 15.3 % High 11.5-15.0 [facility] (RBC) [Ratio] Comment on above: Order Comment: Specimen Type : BLOOD SPECIMEN Performed By: #### [id number] # ###[facility] LABORATORYCLIA [id number] [address] Hematocrit (Bld) [Volume fraction] 47.2 % High 36.0-4 6.0 [facility] Comment on above: Order Comment: Specimen Type : BLOOD SPECIMEN Performed By: #### [id number] # ###[facility] LABORATORYCLIA [id number] [address] Hemoglobin (Bld) [Mass/Vol] 14.5 g/dL Normal 11.5-15.5 [facility] Comment on above: Order Comment: Specimen Type : BLOOD SPECIMEN Performed By: #### [id number] # ###[facility] LABORATORYCLIA [id number] [address] MCH (RBC) [Entitic mass] 31.7 pg Normal 26.0-34.0 [facility] Comment on above: Order Comment: Specimen Type : BLOOD SPECIMEN Performed By: #### 77035-0 # ###[facility] LABORATORYCLIA [id number] [facility], [address] MCHC (RBC) [Mass/Vol] 30.7 g/dL Normal 30.5-36.0 [facility] Comment on above: Order Comment: Specimen Type : BLOOD SPECIMEN Performed By: #### [id number] # ###[facility] LABORATORYCLIA [id number] [facility], [address] MCV (RBC) [Entitic vol] 103.3 fL High 80.0-100.0 [facility] Comment on above: Order Comment: Specimen Type : BLOOD SPECIMEN Performed By: #### [id number] # ###[facility] LABORATORYCLIA [id number] [address] Nucleated RBC (Bld) [#/Vol] 10*3/uL Normal <0.01 [facility] Comment on above: Order Comment: Specimen Type : BLOOD SPECIMEN Performed By: #### 89717-4 # ###[facility] LABORATORYCLIA [id number] [facility] [place], [address] Platelet mean volume (Bld) 10.0 fL Normal 9.0-12.7 [facility] [Entitic vol] Comment on above: Order Comment: Specimen Type : BLOOD SPECIMEN Performed By: #### 59504-7 # ###[facility] LABORATORYCLIA [id number] [facility] [place], [address] Platelets (Bld) [#/Vol] 398 10*3/uL Normal 150-400 [facility] Comment on above: Order Comment: Specimen Type : BLOOD SPECIMEN Performed By: #### 57717-0 # ###[facility] LABORATORYCLIA [id number] [facility] [place], [address] RBC (Bld) [#/Vol] 4.57 10*6/uL Normal 3.90-5.20 [facility] Comment on above: Order Comment: Specimen Type : BLOOD SPECIMEN Performed By: #### 16241-5 # ###[facility] LABORATORYCLIA [id number] [facility] [place], [address] WBC (Bld) [#/Vol] 7.70 10*3/uL Normal 3.70-11.00 [facility] Comment on above: Order Comment: Specimen Type : BLOOD SPECIMEN Performed By: #### 04854-5 # ###[facility] LABORATORYCLIA [id number] [facility] [place], [address] CNOV on 09-27-2021 CNOV Office Visit (AGCARDPOB) Normal [facility] VINCE KOENIG ([id number]) 1955 F Medical Date Time Provider Department Center 09/27/21 2:00 PM TRACY RAMIRES During your visit today, we recorded the following inf ormation about you: Pulse Blood pressure Weight Height 74/minute 142/86 62.1 kg 1.651 m Kimberlyn Renee MA 09/27/2021 1:53 PM Signed No cardiac concerns today Tracy Ramires APRN.CNP 09/28/2021 11:09 AM Signed Chief Complaint Patient [...] by teo garcia on 06/12/2021 at our [place] office. Stress testing was done d/t symptoms [...] HISTORY Diagnosis Date - Acute pancreatitis 2010 Maynor Cruz - Alcohol use disorder 01/18/2016 [facility] - Anxiety 12/14/2015 - Bipolar affective disorder, currently active ([facility]) 0 01/18/2016 [facility] - Chronic bronchitis (HCC) 07/26/2016 - Closed skull fracture ([facility]) 1994 [facility], [facility] - Coronary artery disease - DDD (degenerative disc disease), cervical - Endometriosis 2007 - Essential hypertension 12/14/2015 - GERD (gastroesophageal reflux disease) 03/13/2019 - History of colon polyps - History of gastric ulcer 12/14/2015 - HLD (hyperlipidemia) - Injury of left facial nerve 1994 - PAD (peripheral artery disease) ([facility]) 09/28/2019 - Recurrent major depression in partial remission ([facility] ) 12/14/2015 - S/P drug eluting coronary stent placement 08/25/2021 LAD and Dg2 - Spinal stenosis PAST SURGICAL HISTORY Procedure Laterality Date - APPENDECTOMY 1979 - COLONOSCOP W/ OR W/O BRSH SPEC 2010 Colonoscopy - COLONOSCOPY 04/03/2017 diverticulosis- repeat 10 years - DECOMPRESS FACIAL NERVE,TOTAL Left 1989 C - EGD 04/03/2017 Gastritis, duodenitis, GERD with esophagitis - ENDARTERECTOMY FEMORAL PROFUNDA Right 10/20/2019 patch angioplasty, Right iliac stent - PAST SURGICAL HISTORY OF 1994 cervical disc surgery x 3 - REMOVAL GALLBLADDER 1979 Cholecystectomy - REMOVAL OF TONSILS,<12 Y/O 1959 Tonsillectomy - STENT PLACEMENT 08/25/2021 RODNEY LAD [...] 09-27-2021 Cholesterol [Mass/Vol] 189 mg/dL Normal <200 [facility] Comment on above: Order Comment: Specimen Type : BLOOD SPECIMEN Result Comment: <200 mg/dL, Desirable 200-239 mg/dL, Borderline hi gh >239 mg/dL, High Performed By: #### LIPB #### [facility] CLIA [id number] [address] OF [facility] Cholesterol in HDL [Mass/Vol] 70 mg/dL Normal >39 [facility] Comment on above: Order Comment: Specimen Type : BLOOD SPECIMEN Result Comment: 40-59 mg/dL, Acceptable >59 mg/dL, High: Negative ri sk factor for coronary heart disease <40 mg/dL, Low: Positive ris k factor for coronary heart disease Performed By: #### LIPB #### [facility] CLIA [id number] [address] OF [facility] Cholesterol in LDL [Mass/Vol] 101 mg/dL High <100 [facility] Comment on above: Order Comment: Specimen Type : BLOOD SPECIMEN Result Comment: <100 mg/dL, Optimal 100-129 mg/dL, Near optimal/ above optimal 130-159 mg/dL, Borderline hi gh 160-189 mg/dL, High >189 mg/dL, Very high Secondary prevention optimal LDL Cholesterol levels are recommended to be < 70 mg/dL Performed By: #### LIPB #### [facility] CLIA [id number] [address] Cholesterol in LDL/Cholesterol in 1.44 {ratio} Normal <2.54 [facility] HDL [Mass ratio] [place] Comment on above: Order Comment: Specimen Type : BLOOD SPECIMEN Result Comment: Reference: 1. National Cholesterol Educ ation Program ATP III Guideline At-A-Glance Quick Desk Reference: National Heart, Lung, and Blood [place]. National Institutes of Health. 2001: NIH Publication No. 01-3305. 2. An International Atherosc lerosis Society position paper: global recommendations for the management of dyslipidemia: executive summary, Atherosclerosis. 2014: 232(2):410-413. Performed By: #### LIPB #### [facility] CLIA [id number] [address] Cholesterol in VLDL [Mass/Vol] 18 mg/dL Normal <30 [facility] Comment on above: Order Comment: Specimen Type : BLOOD SPECIMEN Performed By: #### LIPB #### [facility] CLIA [id number] [address] Cholesterol non HDL [Mass/Vol] 119 mg/dL Normal <130 [facility] Comment on above: Order Comment: Specimen Type : BLOOD SPECIMEN Result Comment: <130 mg/dL, Optimal 130-159 mg/dL, Near optimal/ above optimal 160-189 mg/dL, Borderline hi gh 190-219 mg/dL, High >219 mg/dL, Very high Secondary prevention optimal non HDL Cholesterol levels are recommended to be <100 mg/dL Performed By: #### LIPB #### [facility] CLIA [id number] [address] Cholesterol.total/Cholesterol in HDL 2.70 {ratio} Normal <5.1 0 [facility] [Mass ratio] [facility] Comment on above: Order Comment: Specimen Type : BLOOD SPECIMEN Performed By: #### LIPB #### [facility] CLIA [id number] [address] FASTING TIME 12 hrs Normal [facility] Comment on above: Order Comment: Specimen Type : BLOOD SPECIMEN Performed By: #### LIPB #### [facility] CLIA [id number] [address] [facility] Triglyceride [Mass/Vol] 88 mg/dL Normal <150 [facility] Comment on above: Order Comment: Specimen Type : BLOOD SPECIMEN Result Comment: <150 mg/dL, Normal 150-199 mg/dL, Borderline hi gh 200-499 mg/dL, High >499 mg/dL, Very high Performed By: #### LIPB #### [facility] CLIA [id number] [address] CNPN on 09-01-2021 CNPN Telephone (AKPRAD) Normal [facility] VINCE KOENIG ([id number]) 1955 F Medical Date Time Provider Department [...] RAMIRES on 09/01/21 CNPN Telephone (AKCRL) Normal [facility] VINCE KOENIG ([id number]) 1955 F Medical Date Time Provider Department Center 09/01/21 BEE MCGILL During your visit today, we recorded the following inf ormation about you: Bee Mcgill, Wedding Designer 09/01/2021 10: 44 AM Signed Faxed to [place] based on location. Bee Mcgill, [facility], Cardiopulmonary Rehab [phone] Allergies As of Date: 09/01/2021 (No Known Allergies) Date Reviewed: 08/31/2021 Reviewed by: Babatunde Lomeli MD - Fully Assessed Reason for Visit: Cardiac Rehab [1271] Prescriptions as of 09/01/2021 - oxyCODONE-acetaminophen (PERCOCET) [...] on CNDS on 08-26-2021 CNDS HNO ID: [id number] Normal [facility] Medical Author: Ben Thao MD Center Service: Interventional [...] on 08-25-2021 BRIEF OP NOT HNO ID: [id number] Normal [facility] Medical Author: Juan Ramon Pichardo MD Ce nter Service: Cardiovascular Medicine Author Type: Physician Type: [...] LAD portion of the stent 3.7mm, with catholic of blood flow, no residual stenosis. No complications. Recommend: ASA/Plavix Continue other guideline directed medical therapy Juan Ramon Kemp MD Warper Tender of Internal Medicine [facility] Section of Interventional Cardiology Cooling Machine Operator of Structural Heart Disease [address], [address] [place] [address] Facsimile: [phone] Email: [email or web address] Basic metabolic 2000 panel on 1 Anion gap [Moles/Vol] 14 mmol/L Normal 9-18 [facility] Comment on above: Order Comment: Specimen Type : BLOOD SPECIMEN Performed By: #### 41581-9 # ###[facility] [id number] [place] [address] [place] Calcium [Mass/Vol] 9.2 mg/dL Normal 8.5-10.2 [facility] Comment on above: Order Comment: Specimen Type : BLOOD SPECIMEN Performed By: #### 62565-8 # ###[facility] [id number] [place] [address] [place] Chloride [Moles/Vol] 102 mmol/L Normal 97-105 [facility] Comment on above: Order Comment: Specimen Type : BLOOD SPECIMEN Performed By: #### 30539-4 # ###[facility] [id number] [place] [address] [place] CO2 [Moles/Vol] 21 mmol/L Low 22-30 [facility] Comment on above: Order Comment: Specimen Type : BLOOD SPECIMEN Performed By: #### 44650-2 # ###[facility] [id number] [place] [address] [place] Creatinine [Mass/Vol] 0.72 mg/dL Normal 0.58-0.96 [facility] Comment on above: Order Comment: Specimen Type : BLOOD SPECIMEN Performed By: #### 48749-5 # ###[facility] [id number] [place] [address] [place] GFR/1.73 sq M.predicted MDRD mL/min/{1.73_m2} Normal [facility] (S/P/Bld) [Vol rate/Area] Ce nter Comment [...] IDMS. An eGFR <60 mL/min/1.73m2 for >3 mo nths is consistent with chronic kidney disease. Refer to KDOQI guidelines for clinical interpretation. In patients with unstable renal function, e.g. those with acute k idney injury, the eGFR may n ot accurately reflect actual GFR. Performed By: #### 05234-9 # ###[facility] [id number] [place] [address] [place] Glucose [Mass/Vol] 92 mg/dL Normal 74-99 [facility] Comment on above: Order Comment: Specimen Type : BLOOD SPECIMEN Result Comment: The [place] Diabetes Association (ADA) provides guidance for cutoff [...] for diagnosis of diabetes. Reference: Standards of [facility] Care in Diabetes 2016, [place] Diabetes Association. Diabetes Care. 2016.39(Suppl 1). Performed By: #### 54194-4 # ###[facility] [id number] [address] Potassium [Moles/Vol] 4.7 mmol/L Normal 3.7-5.1 [facility] Comment on above: Order Comment: Specimen Type : BLOOD SPECIMEN Performed By: #### 11738-7 # ###[facility] [id number] [place], [place] [address] [place] [address] Sodium [Moles/Vol] 137 mmol/L Normal 136-144 [facility] Comment on above: Order Comment: Specimen Type : BLOOD SPECIMEN Performed By: #### 45262-1 # ###[facility]ORYCLIA [id number] [address] Urea nitrogen [Mass/Vol] 11 mg/dL Normal 7-21 [facility] Comment on above: Order Comment: Specimen Type : BLOOD SPECIMEN Performed By: #### 83973-8 # ###[facility]ORY[facility] [id number] [address] OF [facility] CBC panel Auto (Bld) on 08-25-2021 Erythrocyte distribution width 15.4 % High 11.5-15.0 [facility] (RBC) [Ratio] Comment on above: Order Comment: Specimen Type : BLOOD SPECIMEN Performed By: #### 74239-9 # ### [facility] CLIA [id number] [address] Hematocrit (Bld) [Volume fraction] 46.7 % High 36.0-4 6.0 [facility] Comment on above: Order Comment: Specimen Type : BLOOD SPECIMEN Performed By: #### 88213-0 # ### [facility] CLIA [id number] [address] Hemoglobin (Bld) [Mass/Vol] 14.9 g/dL Normal 11.5-15.5 [facility] Comment on above: Order Comment: Specimen Type : BLOOD SPECIMEN Performed By: #### 87325-9 # ### [facility] CLIA [id number] [address] MCH (RBC) [Entitic mass] 31.6 pg Normal 26.0-34.0 [facility] Comment on above: Order Comment: Specimen Type : BLOOD SPECIMEN Performed By: #### 65884-8 # ### [facility] CLIA [id number] [address] MCHC (RBC) [Mass/Vol] 31.9 g/dL Normal 30.5-36.0 [facility] Comment on above: Order Comment: Specimen Type : BLOOD SPECIMEN Performed By: #### 79791-5 # ### [facility] CLIA [id number] [address] MCV (RBC) [Entitic vol] 98.9 fL Normal 80.0-100.0 [facility] Comment on above: Order Comment: Specimen Type : BLOOD SPECIMEN Performed By: #### 65252-2 # ### [facility] CLIA [id number] [address] Nucleated RBC (Bld) [#/Vol] 10*3/uL Normal <0.01 [facility] Comment on above: Order Comment: Specimen Type : BLOOD SPECIMEN Performed By: #### 84870-7 # ### [facility] CLIA [id number] [address] Platelet mean volume (Bld) 10.4 fL Normal 9.0-12.7 [facility] [Entitic vol] Comment on above: Order Comment: Specimen Type : BLOOD SPECIMEN Performed By: #### 27676-0 # ### [facility] CLIA [id number] [address] Platelets (Bld) [#/Vol] 375 10*3/uL Normal 150-400 [facility] Comment on above: Order Comment: Specimen Type : BLOOD SPECIMEN Performed By: #### 66039-6 # ### [facility] CLIA [id number] [address] RBC (Bld) [#/Vol] 4.72 10*6/uL Normal 3.90-5.20 [facility] Comment on above: Order Comment: Specimen Type : BLOOD SPECIMEN Performed By: #### 48268-2 # ### [facility] CLIA [id number] [address] WBC (Bld) [#/Vol] 10.76 10*3/uL Normal 3.70-11.00 [facility] Comment on above: Order Comment: Specimen Type : BLOOD SPECIMEN Performed By: #### 37123-7 # ### [facility] CLIA [id number] [address] HISTORY PHYSICAL on 08-25-2021 HISTORY PHYSICAL HNO ID: [id number] Normal [facility] Author: Juan Ramon Pichardo MD Ce nter Service: Cardiovascular Medicine Author Type: Physician Type: [...] 2021 TIME: 9:00 AM CNPN on 08-15-2021 JEOVANNY Telephone (AGCARDPOB) Normal [facility] VINCE KOENIG ([id number]) 1955 F Medical Date Time Provider Department Center 08/15/21 TRACY RAMIRES AGCJO-ANNPORussell During your visit today, we recorded the following inf ormation about you: Suzy Cordero RN 08/15/2021 8:11 AM Signed ----- Message from Tracy Ramires APRN.RECYCLING TECHNICIAN sent at 1 7:51 AM EDT ----- Please call patient and notify her of normal stress te sting results. There is no scintigraphic evidence for inducible ische nay. EF 55% Stress ECG Conclusion: Conclusion: Normal Suzy Cordero RN 08/15/2021 8:12 AM Signed Left message on voicemail requesting pt return call fo r test results. Office phone number provided. AAMIR Russell APRN.LINDA 08/15/2021 9:29 AM Signed Actually due to [...] type [R07.9] Pre-operative cardiovascular examination [Z01.810] Order(s):CARDIAC STEAM PAN SPONGER ORDER [[id number]] Order #: [id number]: 1 CBC [SQCB] Order #: [id number] FUTURE Prescriptions as of 08/16/2021 - oxyCODONE-acetaminophen [...] EVERY DAY - varenicline (CHANTIX STARTING MONTH ) 0.5 mg (11) - 1 mg (42) [...] * * *Final Report* * * Normal [facility] DATE OF EXAM: Aug 14 2021 4:02PM Hospital STRESS/PHARM MDN 0006 - NM CARDIAC PERF STRESS/PHARM / PROCEDURE REASON: multiple diagnoses * * * * Physician Interpretation * * * * Stress Efficiency Miner Report: [facility] Date of service: 08/14/2021 3:00:40 [...] 60 minutes later. See administered doses below. [facility] Date of service: 08/14/2021 3:00:40 [...] evidence of scarring. Final Stress ECG Report: [facility] Date of service: 08/14/2021 3:00:40 PM Ordering physician: TRACY RAMIRES Specialist: Grace Sagastume Moto Mix Operator: Guera Fowler Stress ECG interpreting physician: Fransico [...] 146/80 mmHg. The double product achieved was 92397. Indication: Shortness of breath Medical History and [...] / 80 mmHg Rate Pressure Product (RPP): 85672 St (more content not included)... 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 Thank you! Tracy Alan LPN 06/21/2021 8:40 AM Signed I called and left a message for to call [facility] for test results. PETERSON Grover LPN 06/21/2021 2:57 PM Signed Called and left a voice mail with result s per Tracy Ramires CNP instructions. Instructed patient to call office back with any questi ons. Diana Mahan LPN Allergies As of Date: 06/21/2021 (No Known Allergies) Date Reviewed: 06/14/2021 Reviewed by: Tracy Ramires APRN.RECYCLING TECHNICIAN - Fully Assesse d Reason for Visit: [...] [J30.2] 05/04/2019 Preop cardiovascular exam [Z01.810] 09/28/2019 11/26/2 019 Precordial pain, short lived, 3-5 minutes, [...] on 05-04-2018 Calcium 8.4 mg/dL Normal 8.2-10.1 [facility] Comment on above: Result Comment: Repeated Performed By: #### HEMDF, BM P3 ####[facility] [address] [place] [address] Chloride 100 mmol/L Normal 98-109 [facility] Comment on above: Result Comment: Repeated Performed By: #### HEMDF, BM P3 ####[employer] [address] [place] [address] Sodium 134 mmol/L Low 135-145 [facility] Comment on above: Result Comment: Repeated Performed By: #### HEMDF, BM P3 ####[employer] [address] [place] [address] Anion gap 7 Normal [facility] Comment on above: Performed By: #### HEMDF, BM P3 ####[employer] [address] [place] [address] CO2 27 mmol/L Normal 21-32 [facility] Comment on above: Performed By: #### HEMDF, BM P3 ####[facility] [address] [place] [address] Creatinine 0.79 mg/dL Normal 0.55-1.40 [facility] Sy stem Comment on above: Performed By: #### HEMLISETTE BM P3 ####[facility] [place] [address] eGFR (black) mL/min/{1.73_m2} Normal >60 [facility] Comment on above: Performed By: #### HEMLISETTE BM P3 ####[facility] [address] [address] eGFR (non-black) mL/min/{1.73_m2} Normal >60 [facility] Comment on above: Result Comment: Source- MDRD equation with creatinine calibration to IDMS(NKDEP) eGFR not isidra mmended for drug dose adjustment Performed By: #### HEMLISETTE BM P3 ####[facility] [address] [address] Glucose mass conc 98 mg/dL Normal 70-100 [facility] Comment on above: Performed By: #### HEMLISETTE BM P3 ####[facility] [place] [address] Potassium molar conc 4.6 mmol/L Normal 3.5-5.1 [facility] Comment on above: Performed By: #### HEMDF BM P3 ####[facility] [place] [address] Urea nitrogen 20 mg/dL Normal 7-25 [facility] yste Comment on above: Performed By: #### HEMLISETTE BM P3 ####[facility] [address] [address] Glucose,Bedside on 05-04-2018 Glucose mass conc 99 mg/dL Normal 70-100 [facility] Comment on above: Result Comment: Test perform ed by glucose meter. Results may be 10%-15% lowerthan serum/plas ma values. (CLIA ID [id number]) Performed By: #### BGLU #### [employer] [address] [address] Hemogram w/ Autodiff on 05-04-2018 Abs Baso Cnt 0.1 10*3/uL Normal 0.0-0.2 [facility] Comment on above: Performed By: #### HEMDF, BM P3 ####[facility] [address] [place] [address] Basophils/100 WBC Auto (Bld) 1.0 % Normal 0.0-2.0 [facility] Comment on above: Performed By: #### HEMDF, BM P3 ####[facility] [address] [place] [address] Eosinophils 0.4 10*3/uL Normal 0.0-0.5 [facility] Comment on above: Performed By: #### HEMDF, BM P3 ####[facility] [address] [place] [address] Eosinophils/100 leukocytes 4.3 % Normal 1.0-6.0 [facility] Comment on above: Performed By: #### HEMDF, BM P3 ####[address] [address] Erythrocyte distribution width Auto Ratio 14.7 % High 11.5-14.5 [facility] (RBC) Comment on above: Performed By: #### HEMDF, BM P3 ####[facility] [address] [place] [address] Erythrocytes (RBC) 4.10 10*6/uL Normal 3.80-5.20 [facility] Comment on above: Performed By: #### HEMDF, BM P3 ####[address] [address] Granulocytes/100 WBC (Bld) 57.2 % Normal 40.0-80.0 [facility] Comment on above: Performed By: #### HEMDF, BM P3 ####[facility] [address] [place] [address] Hematocrit (HCT) 40.2 % Normal 35.0-47.0 [facility] Comment on above: Performed By: #### HEMDF, BM P3 ####[facility] [address] [place] [address] Hemoglobin mass conc (Bld) 13.3 g/dL Normal 11.7-16.0 [facility] Comment on above: Performed By: #### HEMLISETTE BM P3 ####[facility] [address] [place] [address] Lymphocytes 2.5 10*3/uL Normal 1.0-4.3 [facility] Comment on above: Performed By: #### HEMLISETTE BM P3 ####[facility] [address] [place] [address] Lymphocytes/100 leukocytes 27.6 % Normal 20.0-40.0 [facility] Comment on above: Performed By: #### HEMLISETTE BM P3 ####[address] [address] MCH 32.5 pg Normal 26.0-34.0 [facility] Comment on above: Performed By: #### HEMLISETTE BM P3 ####[address] [address] MCHC mass conc (RBC) 33.0 % Normal 32.0-36.0 [facility] Comment on above: Performed By: #### HEMLISETTE BM P3 ####[address] [address] MCV 98.2 fL High 79.0-98.0 [facility] Comment on above: Performed By: #### HEMLISETTE BM P3 ####[address] [address] Monocytes 0.9 10*3/uL High 0.0-0.8 [facility] Comment on above: Performed By: #### HEMLISETTE BM P3 ####[facility] [address] [place] [address] Monocytes/100 leukocytes 9.9 % Normal 2.0-10.0 [facility] Comment on above: Performed By: #### HEMDF BM P3 ####[address] [address] Neutrophils 5.2 10*3/uL Normal 1.8-7.0 [facility] Comment on above: Performed By: #### HEMLISETTE BM P3 ####[address] [address] Platelet mean volume (PMV) 8.8 fL Normal 7.4-10.4 S [facility] Comment on above: Performed By: #### HEMLISETTE, BM P3 ####[facility] [place] [address] Platelets 362 10*3/uL Normal 140-440 [facility] Comment on above: Performed By: #### HEMDF, BM P3 ####[facility] [place] [address] WBC (Leukocytes) 9.1 10*3/uL Normal 3.6-10.7 [facility] Comment on above: Performed By: #### HEMLISETTE BM P3 ####[facility] [place] [address] Ethanol Serum/Plasma on 04-30-2018 Ethanol-Serum/Plasma < 0.010 Normal 0.000-0.010 [facility] ealt System Comment on above: Result Comment: NOTE: This r esult is for medical treatment only. Analysis performed using non -forensic procedures. Performed By: #### HEMLISETTE, CM P3, QWAL, ETOH4 ####[employer] [place] [address] HCG,Urine Qual on 04-30-2018 HCG.beta subunit ( test) Ql (U) Negative Normal Negative [facility] Comment on above: Result Comment: is the most common reason for HCG in urine, althoughchoriocarcino ma, hydatidiform mole, and certain nontropho-blastic malignanci es also result in detectable urinary HCGlevels. Sensitivity = 20m IU/mL. Performed By: #### DR FAISAL ELLISON4, HCGUR ####[employer] [place], [place] [address] Comp Metabolic Panel on 04-29-2018 Alanine aminotransferase (ALT) 26 U/L Normal 13-69 [facility] Comment on above: Performed By: #### HEMDF, CM P3, QWAL, ETOH4 ####[employer] [place] [address] Alkaline phosphatase (ALP) 65 U/L Normal 38-126 S [facility] Comment on above: Performed By: #### HEMDF, CM P3, QWAL, ETOH4 ####[facility] [address] [place], [place] Anion gap 10 Normal [facility] Comment on above: Performed By: #### HEMDF, CM P3, QWAL, ETOH4 ####[facility] [address] [place], [place] Aspartate aminotransferase (AST) 23 U/L Normal 15-46 [facility] Comment on above: Performed By: #### HEMDF, CM P3, QWAL, ETOH4 ####[facility] [address] [facility] [address] [place], [place] Calcium 9.1 mg/dL Normal 8.4-10.2 [facility] stem Comment on above: Performed By: #### HEMDF, CM P3, QWAL, ETOH4 ####[facility] [address] [facility] [address] [place], [place] CO2 24 mmol/L Normal 22-30 [facility] stem Comment on above: Performed By: #### HEMDF, CM P3, QWAL, ETOH4 ####[facility] [address] [facility] [place] [place] Glucose mass conc 144 mg/dL High 70-100 [facility] Comment on above: Performed By: #### HEMDF, CM P3, QWAL, ETOH4 ####[facility] [address] [facility] [place] [place], [place] Protein 7.2 g/dL Normal 6.3-8.2 [facility] stem Comment on above: Performed By: #### HEMDF, CM P3, QWAL, ETOH4 ####[facility] [address] [facility] [place], [place] Urea nitrogen 14 mg/dL Normal 7-20 [facility] Comment on above: Performed By: #### HEMDF, CM P3, QWAL, ETOH4 ####[facility] Authorly [id number] [facility] [place] Bilirubin (total) 0.3 mg/dL Normal 0.2-1.3 [facility] Comment on above: Performed By: #### HEMDF, CM P3, QWAL, ETOH4 ####[employer] [facility] [place] [place] Creatinine 0.74 mg/dL Normal 0.52-1.25 [facility] stem Comment on above: Performed By: #### HEMDF, CM P3, QWAL, ETOH4 ####[employer] [facility] [place] eGFR (black) mL/min/{1.73_m2} Normal >60 [facility] Comment on above: Performed By: #### HEMDF, CM P3, QWAL, ETOH4 ####[employer] [facility] [place] [place] eGFR (non-black) mL/min/{1.73_m2} Normal >60 [facility] Comment on above: Result Comment: Source- MDRD equation with creatinine calibration to IDMS(NKDEP) eGFR not isidra mmended for drug dose adjustment Performed By: #### HEMDF, CM P3, QWAL, ETOH4 ####[employer] [place], [place] Albumin 4.4 g/dL Normal 3.5-5.0 [facility] stem Comment on above: Performed By: #### HEMDF, CM P3, QWAL, ETOH4 ####[employer] [facility] [place] [place] Chloride 106 mmol/L Normal 98-107 [facility] stem Comment on above: Performed By: #### HEMDF, CM P3, QWAL, ETOH4 ####[employer] [facility] [place] [place] Potassium molar conc 4.4 mmol/L Normal 3.5-5.1 [facility] Comment on above: Performed By: #### HEMDF, CM P3, QWAL, ETOH4 ####[employer] [place], [place] Sodium 141 mmol/L Normal 137-145 [facility] Comment on above: Performed By: #### HEMDF, CM P3, QWAL, ETOH4 ####[place] [id number] [place] [address] Drugs of Abuse on 04-29-2018 Cocaine, Ur Negative Normal [facility] Comment on above: Performed By: #### DR EVELYN ELLISON, HCGUR ####[place] [id number] [place] [place] [phone] Phencyclidine (PCP), Ur Negative Normal [facility] Comment on above: Result Comment: The [...] procedures. Performed By: #### DR EVELYN ELLISON, HCGUR ####[place] [id number] [facility] [place] [phone] Methadone, Ur Negative Normal [facility] S ystem Comment on above: Performed By: #### DR VEELYN ELLISON, HCGUR ####[place] [id number] [facility] [place] [phone] Opiates, Ur Negative Normal [facility] stem Comment on above: Performed By: #### DR EVELYN ELLISON, HCGUR ####[place] [id number] [place] [phone] Benzodiazepines, Ur Negative Normal [facility] Comment on above: Performed By: #### DR EVELYN ELLISON, HCGUR ####[place] [id number] [place] [phone] Amphetamines, Ur Negative Normal [facility] Comment on above: Performed By: #### DR EVELYN ELLISON, HCGUR ####[place] [id number] [place] [place] [phone] Barbiturates, Ur Negative Normal [facility] Comment on above: Performed By: #### DR FAISAL ELLISON4, HCGUR ####[facility] Authorly [id number] [facility] [place] [address] Oxycodone/Oxymorphine,Ur Negative Normal [facility] Comment on above: Performed By: #### DR EVELYN ELLISON, HCGUR ####[facility] Authorly [id number] [facility] [place] [address] Hemogram w/ Autodiff on 04-29-2018 Abs Baso Cnt 0.1 10*3/uL Normal 0.0-0.2 [facility] stem Comment on above: Performed By: #### HEMDF, CM P3, QWAL, ETOH4 ####[facility] Authorly [id number] [place] [address] Basophils/100 WBC Auto (Bld) 1.1 % Normal 0.0-2.0 [facility] Comment on above: Performed By: #### HEMDF, CM P3, QWAL, ETOH4 ####[employer] Authorly [id number] [place] [address] Eosinophils 0.3 10*3/uL Normal 0.0-0.5 [facility] stem Comment on above: Performed By: #### HEMDF, CM P3, QWAL, ETOH4 ####[employer] Authorly [id number] [place] [address] Eosinophils/100 leukocytes 3.3 % Normal 1.0-6.0 S [facility] Comment on above: Performed By: #### HEMDF, CM P3, QWAL, ETOH4 ####[facility] Authorly [id number] [place] [address] Erythrocyte distribution width Auto Ratio 14.8 % High 11.5-14.5 [facility] (RBC) Comment on above: Performed By: #### HEMDF, CM P3, QWAL, ETOH4 ####[facility] Authorly [id number] [place] [address] Erythrocytes (RBC) 4.26 10*6/uL Normal 3.80-5.20 [facility] Comment on above: Performed By: #### HEMDF, CM P3, QWAL, ETOH4 ####[address] Granulocytes/100 WBC (Bld) 54.6 % Normal 40.0-80.0 S [facility] Comment on above: Performed By: #### HEMDF, CM P3, QWAL, ETOH4 ####[address] Hematocrit (HCT) 42.5 % Normal 35.0-47.0 [facility] Comment on above: Performed By: #### HEMDF, CM P3, QWAL, ETOH4 ####[facility] Authorly [address] Hemoglobin mass conc (Bld) 14.1 g/dL Normal 11.7-16.0 S [facility] Comment on above: Performed By: #### HEMDF, CM P3, QWAL, ETOH4 ####[facility] Author[employer] [address] Lymphocytes 3.1 10*3/uL Normal 1.0-4.3 [facility] Sy stem Comment on above: Performed By: #### HEMDF, CM P3, QWAL, ETOH4 ####[facility] Authorly [address] Lymphocytes/100 leukocytes 32.8 % Normal 20.0-40.0 S [facility] Comment on above: Performed By: #### HEMDF, CM P3, QWAL, ETOH4 ####[facility] Authorly [address] MCH 33.1 pg Normal 26.0-34.0 [facility] Sy stem Comment on above: Performed By: #### HEMDF, CM P3, QWAL, ETOH4 ####[facility] Authorly [address] MCHC mass conc (RBC) 33.2 % Normal 32.0-36.0 [facility] Comment on above: Performed By: #### HEMDF, CM P3, QWAL, ETOH4 ####[facility] Authorly [id number] [place] [address] MCV 99.8 fL High 79.0-98.0 [facility] Sy stem Comment on above: Performed By: #### HEMDF, CM P3, QWAL, ETOH4 ####[facility] Authorly [id number] [place] [address] Monocytes 0.8 10*3/uL Normal 0.0-0.8 [facility] stem Comment on above: Performed By: #### HEMDF, CM P3, QWAL, ETOH4 ####[facility] Authorly [id number] [place] [address] Monocytes/100 leukocytes 8.2 % Normal 2.0-10.0 [facility] Comment on above: Performed By: #### HEMDF, CM P3, QWAL, ETOH4 ####[facility] Authorly [address] [place] [address] Neutrophils 5.2 10*3/uL Normal 1.8-7.0 [facility] stem Comment on above: Performed By: #### HEMDF, CM P3, QWAL, ETOH4 ####[facility] Authorly [id number] [place] [address] Platelet mean volume (PMV) 8.5 fL Normal 7.4-10.4 S [facility] Comment on above: Performed By: #### HEMDF, CM P3, QWAL, ETOH4 ####[facility] Authorly [id number] [place] [address] Platelets 380 10*3/uL Normal 140-440 [facility] stem Comment on above: Performed By: #### HEMDF, CM P3, QWAL, ETOH4 ####[facility] Authorly [id number] [place] [address] WBC (Leukocytes) 9.6 10*3/uL Normal 3.6-10.7 [facility] Comment on above: Performed By: #### HEMDF, CM P3, QWAL, ETOH4 ####[facility] Authorly [id number] [place] [address] Urinalysis,Macro on 04-29-2018 Bilirubin (direct) Negative Normal Negative [facility] Comment on above: Performed By: #### DR EVELYN ELLISON, HCGUR ####[place] [id number] [place], [place] [address] Ketone,Urine Negative Normal Negative [facility] stem Comment on above: Performed By: #### DR EVELYN ELLISON, HCGUR ####[place] [id number] [place], [place] [address] Occult Blood,Ur Negative Normal Negative [facility] Comment on above: Performed By: #### DR EVELYN ELLISON, HCGUR ####[place] [id number] [place], [place] [address] Specific [place],Urine 1.015 Normal 1.005-1.030 [facility] Comment on above: Performed By: #### DR EVELYN ELLISON, HCGUR ####[place] [id number] [place], [place] [address] Total Protein,Urine Negative Normal Negative [facility] Comment on above: Performed By: #### DR EVELYN ELLISON, HCGUR ####[place] [id number] [facility], [place] [address] Urine, appearance clear Normal Clear [facility] Comment on above: Performed By: #### DR EVELYN ELLISON, HCGUR ####[place] [id number] [facility], [place] [address] Urine, color yellow Normal Lt. Yellow [facility] stem Comment on above: Performed By: #### DR EVELYN ELLISON, HCGUR ####[place] [id number] [facility], [place] [address] Urine, glucose presence NORM Normal Negative [facility] Comment on above: Performed By: #### DR EVELYN ELLISON, HCGUR ####[place] [id number] [place], [place] [address] Urine, nitrite presence Negative Normal Negative [facility] Comment on above: Performed By: #### DR EVELYN ELLISON, HCGUR ####[place] [id number] [place], [place] [address] Urine, pH 5.0 Normal 5.0-8.0 [facility] Comment on above: Performed By: #### DR EVELYN ELLISON, HCGUR ####[employer] [place], [place] [address] Urine, urobilinogen NORM Normal 0-1 [facility] Comment on above: Performed By: #### DR EVELYN ELLISON, HCGUR ####[employer] [place], [place] [address] WBC (Leukocytes) Negative Normal Negative [facility] Comment on above: Performed By: #### DR EVELYN ELLISON, HCGUR ####[employer] [place], [place] [address] hCG Qual Preg on 04-29-2018 hCG Qual Preg QUESTIONABLE Abnormal [facility] Authorly S ystem Comment on above: Result Comment: REF RANGE:Ne gative .... < 3Questionable Rpt 48-72 HrPositive ..... > 10 Performed By: #### HEMDF, CM P3, QWAL, ETOH4 ####[employer] [place] [address] Vital Signs Date Time Vital Sign Value Performing Facility Clinician 01-01-2023 Diastolic blood 83 mm[Hg] Oly Older [employer]ULB [employer]ER.LINDA [facility] 14: pressure Work Phone: 01-01-2023 Heart rate 85 /min Oly Older [employer]ULB BRANDER.LINDA [facility] 14: Work Phone: 01-01-2023 Systolic blood 170 mm[Hg] Oly Older BULB BRANDER.LINDA [facility] 14: pressure Work Phone: 01-01-2023 Body weight 58.06 kg Oly Older BULB BR[employer]ER.LINDA [facility] 13: Work Phone: 01-01-2023 Respiratory rate 22 /min Oly Older BULB BRANDER.LINDA [facility] 13: Work Phone: 01-01-2023 SaO2% (BldA) [Mass 97 % Oly Older BULB BRANDER.LINDA [facility] 13:050 fraction] Work Phone: 12-23-2022 Diastolic Blood [address] JOSE ROBERTO COMBS MD [facility] 16:29-0500 Pressure Non-Invasive Work Phone: [facility] 12-23-2022 Heart rate 84 /min DR JOSE ROBERTO COMBS MD [facility] 16:29-0500 [facility] 12-23-2022 Respiratory rate 16 /min DR JOSE ROBERTO COMBS MD [facility] 16:29-0500 [facility] 12-23-2022 Systolic Blood [address] JOSE ROBERTO COMBS MD [facility] 16:290500 Pressure Non-Invasive Work Phone: [facility] 12-23-2022 Diastolic Blood [address] JOSE ROBERTO COMBS MD [facility] 14:43-0500 Pressure Non-Invasive Work Phone: [facility] 12-23-2022 Heart rate 82 /min DR JOSE ROBERTO COMBS MD [facility] 14:43-0500 [facility] 12-23-2022 Respiratory rate 18 /min DR JOSE ROBERTO COMBS MD [facility] 14:43-0500 [facility] 12-23-2022 Systolic Blood [address] JOSE ROBERTO COMBS MD [facility] 14:43-0500 Pressure Non-Invasive Work Phone: [facility] 12-23-2022 Body temperature 96.98 [degF] DR JOSE ROBERTO COMBS MD [facility] 13:50-0500 [facility] 12-23-2022 Diastolic Blood [address] JOSE ROBERTO COMBS MD [facility] 13:50-0500 Pressure Non-Invasive Work Phone: [facility] 12-23-2022 Heart rate 89 /min DR JOSE ROBERTO COMBS MD [facility] 13:50-0500 [facility] 12-23-2022 Respiratory rate 18 /min DR JOSE ROBERTO COMBS MD [facility] 13:50-0500 [facility] 12-23-2022 Systolic Blood [address] JOSE ROBERTO COMBS MD [facility] 13:50-0500 Pressure Non-Invasive Work Phone: [facility] 11-26-2022 Body weight 57.61 kg Salima Asher MD [facility] 12:48-0500 Work Phone: 11-26-2022 Diastolic blood 84 mm[Hg] Salima Asher MD [facility] 12:48-0500 pressure Work Phone: 11-26-2022 Heart rate 98 /min Salima Asher MD [facility] 12:48-0500 Work Phone: 11-26-2022 Respiratory rate 20 /min Salima Asher MD [facility] 12:48-0500 Work Phone: 11-26-2022 SaO2% (BldA) [Mass 99 % Salima Asher MD [facility] 12:48-0500 fraction] Work Phone: 11-26-2022 Systolic blood 120 mm[Hg] Salima Asher MD [facility] 12:48-0500 pressure Work Phone: 10-26-2022 Diastolic Blood 93 1 JEOVANY TAYLOR MD [facility] 19:30-0500 Pressure Non-Invasive Work Phone: [facility] 10-26-2022 Heart rate 97 /min JEOVANY TAYLOR MD [facility] 19:30-0500 [facility] 10-26-2022 Respiratory rate 20 /min JEOVANY TAYLOR MD [facility] 19:30-0500 [facility] 10-26-2022 Systolic Blood 167 1 JEOVANY TAYLOR MD [facility] ospital 19:30-0500 Pressure Non-Invasive Work Phone: [facility] 10-26-2022 Diastolic Blood 92 1 JEOVANY TAYLOR [facility] 19:00-0500 Pressure Non-Invasive Work Phone: [facility] 10-26-2022 Heart rate 93 /min JEOVANY TAYLOR MD [facility] pital 19:00-0500 [facility] 10-26-2022 Respiratory rate 18 /min JEOVANY TAYLOR [facility] 19:00-0500 [facility] 10-26-2022 Heart rate 94 /min [facility] 18:37-0500 [facility] 10-26-2022 Respiratory rate 22 /min JEOVANY TAYLOR [facility] 18:37-0500 [facility] 10-26-2022 Diastolic Blood 82 1 JEOVANY TAYLOR [facility] 18:31-0500 Pressure Non-Invasive Work Phone: [facility] 10-26-2022 Systolic Blood 153 1 JEOVANY TAYLOR MD [facility] ospital 18:31-0500 Pressure Non-Invasive Work Phone: [facility] 10-26-2022 Body temperature 96.8 [degF] JEOVANY TAYLOR [facility] 16:25-0500 [facility] 10-02-2022 Body height 162.1 cm [facility] 10:02-0500 Work Phone: 10-02-2022 Body weight 58.97 kg [facility] 10:020500 Work Phone: 10-02-2022 Diastolic blood 87 mm[Hg] Tawny Self DO [facility] 10:050 pressure Work Phone: 10-02-2022 Heart rate 86 /min Tawny Self DO [facility] 10: Work Phone: 10-02-2022 SaO2% (BldA) [Mass 96 % Tawny Self DO [facility] 10:050 fraction] Work Phone: 10-02-2022 Systolic blood 155 mm[Hg] Tawny Self DO [facility] 10:050 pressure Work Phone: 09-05-2022 Body weight 59.88 kg Ulises Hermosillo MD [facility] 16: Work Phone: 09-05-2022 Diastolic blood 82 mm[Hg] Ulises Hermosillo MD [facility] 16: pressure Work Phone: 09-05-2022 Heart rate 95 /min Ulises Hermosillo MD [facility] 16: Work Phone: 09-05-2022 SaO2% (BldA) [Mass 98 % Ulises Hermosillo MD [facility] 16: fraction] Work Phone: 09-05-2022 Systolic blood 132 mm[Hg] Ulises Hermosillo MD [facility] 16: pressure Work Phone: 08-31-2022 Body weight 58.51 kg Oly Older BULB BRANDER.[facility] 13: Work Phone: 08-31-2022 Diastolic blood 82 mm[Hg] Oly Older BULB BRANDER.[facility] 13: pressure Work Phone: 08-31-2022 Heart rate 86 /min Oly Older BULB BRANDER.[facility] 13: Work Phone: 08-31-2022 Respiratory rate 18 /min Oly Older BULB BRANDER.[facility] 13: Work Phone: 08-31-2022 Systolic blood 125 mm[Hg] Oly Older BULB BRANDER.[facility] 13: pressure Work Phone: 07-31-2022 Body weight 60.33 kg Savanna Kenny APRN.[facility] 14: Work Phone: 07-31-2022 Diastolic blood 82 mm[Hg] Savanna Kenny APRN.[facility] 14: pressure Work Phone: 07-31-2022 Heart rate 89 /min Savanna Kenny APRN.[facility] 14: Work Phone: 07-31-2022 SaO2% (BldA) [Mass 98 % Savanna Kenny APRN.[facility] 14: fraction] Work Phone: 07-31-2022 Systolic blood 148 mm[Hg] Savanna Kenny APRN.[facility] 14: pressure Work Phone: 06-06-2022 Body height 162.1 cm Margaret Shrestha MD [facility] 10: Work Phone: 06-06-2022 Body weight 58 kg Margaret Shrestha MD [facility] 10: Work Phone: 06-06-2022 Diastolic blood 84 mm[Hg] [facility] 10: pressure Work Phone: 06-06-2022 Heart rate 77 /min Margaret Shrestha MD [facility] 10: Work Phone: 06-06-2022 SaO2% (BldA) [Mass 96 % Margaret Shrestha MD [facility] 10: fraction] Work Phone: 06-06-2022 Systolic blood 173 mm[Hg] [facility] 10:110400 pressure Work Phone: 05-11-2022 Body weight 58.06 kg Ulises [facility] 13:400400 Work Phone: 05-11-2022 Diastolic blood 78 mm[Hg] Ulises [facility]obar [facility] 13:400400 pressure Work Phone: 05-11-2022 Heart rate 99 /min Ulises [facility] 13:400400 Work Phone: 05-11-2022 Respiratory rate 24 /min [facility] 13:400400 Work Phone: 05-11-2022 SaO2% (BldA) [Mass 95 % Ulises Hermosillo MD [facility] 13:40040 fraction] Work Phone: 05-11-2022 Systolic blood 118 mm[Hg] Ulises Hermosillo MD [facility] 13:40040 pressure Work Phone: 05-05-2022 Respiratory rate 16 /min DR BETINA GODDARD MD [facility] 10:56-0400 Wo rk 05-05-2022 Body temperature 97.7 [degF] DR BETINA GODDARD MD [facility] 10:480400 Wo rk 05-05-2022 Diastolic blood 75 mm[Hg] DR BETINA GODDARD MD [facility] 10:48-0400 pressure Wo rk 05-05-2022 Heart rate 76 /min DR BETINA GODDARD MD [facility] 10:48-0400 Wo rk 05-05-[address] BETINA GODDARD MD [facility] 10:48-0400 VItal Signs Wo rk 05-05-2022 Respiratory rate 16 /min DR BETINA GODDARD MD [facility] 10:48-0400 Wo rk 05-05-2022 Systolic blood 116 mm[Hg] DR BETINA GODDARD MD [facility] ospital 10:48-0400 pressure Wo rk 05-05-2022 Body temperature 97.88 [degF] DR BETINA GODDARD MD [facility] 07:33-0400 Wo rk 05-05-2022 Diastolic blood 71 mm[Hg] DR BETINA GODDARD MD [facility] 07:33-0400 pressure Wo rk 05-05-2022 Heart rate 71 /min DR BETINA GODDARD MD [facility] 07:33-0400 Wo rk 05-05-2022 Mean blood pressure 88 mm[Hg] DR BETINA GODDARD MD [facility] 07:33-0400 Wo rk 05-05-[address] BETINA GODDARD MD [facility] 07:33-0400 VItal Signs Wo rk 05-05-2022 Respiratory rate 16 /min DR BETINA GODDARD MD [facility] 07:33-0400 Wo rk 05-05-2022 Systolic blood 122 mm[Hg] DR BETINA GODDARD MD [facility]ital 07:33-0400 pressure Wo rk 05-05-2022 Heart rate 77 /min DR BETINA GODDARD MD [facility] 06:43-0400 Wo rk 05-04-2022 Diastolic blood 64 mm[Hg] DR BETINA GODDARD MD [facility] 23:22-0400 pressure Wo rk 05-04-2022 Systolic blood 124 mm[Hg] DR BETINA GODDARD MD [facility] 23:22-0400 pressure Wo rk 05-04-2022 Body temperature 98.42 [degF] DR BETINA GODDARD MD [facility] 20:59-0400 Wo rk 05-04-2022 Heart rate 73 /min DR BETINA GODDARD MD [facility] 20:59-0400 Wo rk 05-04-2022 Mean blood pressure 92 mm[Hg] DR BETINA GODDARD MD [facility] 14:47-0400 Wo rk 05-04-[address] BETINA GODDARD MD [facility] 14:47-0400 VItal Signs Wo rk 05-04-2022 Heart rate 81 /min DR BETINA GODDARD MD [facility] 01:040400 Wo rk 05-04-2022 Mean blood pressure 85 mm[Hg] DR BETINA GODDARD MD [facility] 01:04-0400 Wo rk 05-03-2022 Heart rate 94 /min DR BETINA GODDARD MD [facility] 19:06-0400 Wo rk 05-03-2022 Heart rate 82 /min DR BETINA GODDARD MD [facility] 14:51-0400 Wo rk 05-02-2022 Body height 165.[address] BETINA GODDARD MD [facility] 09:53-0400 Wo rk 05-02-2022 Body weight [address] BETINA GODDARD MD [facility] 09:53-0400 Wo rk 05-02-2022 Body weight 22.01 kg/m2 DR BETINA GODDARD MD [facility] 09:53-0400 Wo rk 05-02-2022 Diastolic blood 86 mm[Hg] [facility] 06:28-0400 pressure Wo rk 05-02-2022 Heart rate 92 /min [facility] 06:28-0400 Wo rk 05-02-2022 Respiratory rate 20 /min [facility] 06:28-0400 Wo rk 05-02-2022 Systolic blood 131 mm[Hg] [facility] 06:28-0400 pressure Wo rk 05-02-2022 Diastolic blood 82 mm[Hg] [facility] 04:25-0400 pressure Wo rk 05-02-2022 Heart rate 95 /min [facility] 04:25-0400 Wo rk 05-02-2022 Mean blood pressure 98 mm[Hg] [facility] 04:25-0400 Wo rk 05-02-2022 Respiratory rate 22 /min [facility] 04:25-0400 Wo rk 05-02-2022 Systolic blood 129 mm[Hg] [facility] 04:25-0400 pressure Wo rk 05-02-2022 Diastolic blood 84 mm[Hg] [facility] 03:42-0400 pressure Wo rk 05-02-2022 Heart rate 98 /min [facility] 03:42-0400 Wo rk 05-02-2022 Mean blood pressure 99 mm[Hg] [facility] 03:42-0400 Wo rk 05-02-2022 Respiratory rate 24 /min [facility] 03:42-0400 Wo rk 05-02-2022 Systolic blood 130 mm[Hg] [facility] 03:42-0400 pressure Wo rk 05-02-2022 Body temperature 98.24 [degF] [facility] 03:12-0400 Wo rk 05-02-2022 Heart rate 130 /min [facility] 03:12-0400 Wo rk 05-02-2022 Heart rate 124 /min [facility] 03:11-0400 Wo rk 04-30-2022 Body weight 57.61 kg Tracy Ramires APRN.[facility] 15:400400 Work Phone: 04-30-2022 Diastolic blood 75 mm[Hg] Tracy Ramires APRN.[facility] 15:400400 pressure Work Phone: 04-30-2022 Heart rate 83 /min Tracy Ramires APRN.[facility] 15:400400 Work Phone: 04-30-2022 Systolic blood 138 mm[Hg] Tracy Ramires APRN.[facility] 15:40-0400 pressure Work Phone: 03-13-2022 Body height 165.1 cm Savanna Kenny APRN.[facility] [id number] Work Phone: 03-13-2022 Body weight 60.92 kg Savanna Kenny APRN.[facility] [id number] Work Phone: 03-13-2022 Diastolic blood 76 mm[Hg] Savanna Kenny APRN.[facility] 13:59-0400 pressure Work Phone: 03-13-2022 Heart rate 81 /min Savanna Kenny APRN.[facility] 13:[id number] Work Phone: 03-13-2022 SaO2% (BldA) [Mass 96 % Savanna Kenny BULB BRANDER.[facility] 13:59-0400 fraction] Work Phone: 03-13-2022 Systolic blood 157 mm[Hg] Savanna Kenny APRN.[facility] 13:59-0400 pressure Work Phone: Encounters Encounter Date Encounter Type Care Provider Facility Start: 01-01-2023 ambulatory [facility] Facility:[facility] End: 01-02-2023 [facility] Start: 01-01-2023 Patient encounter Oly Smith MELISSA.[facility] Internal Medicine End: 01-01-2023 procedure Work Phone: [place] Comment on above: Alcohol withdrawal syndrome without complication (HCC) (Primary Dx) Start: 01-01-2023 Telephone encounter Diana mcclain Psychology Work Phone: Comment on above: Behavioral Health Social Wor k Start: 12-23-2022 Emergency department JOSE ROBERTO COMBS MD Fac ility:B End: 12-23-2022 patient visit Start: 12-23-[address] JOSE ROBERTO COMBS MD [facility] End: 12-23-2022 patient visit Work P nayeli: Start: 12-14-2022 Refill Ulises Hermosillo MD [facility] edicine Work Phone: [facility] Comment on above: Refill Request Start: 11-26-2022 [facility] Facility:[facility] End: 11-26-2022 Hospital Start: 11-26-2022 Patient encounter Salima Asher MD Pulmo nary Medicine End: 11-26-2022 procedure Work Phone: Comment on above: Hemoptysis (Primary Dx); Stage 3 severe COPD by GOLD classification (HCC); Cigarette smoker Start: 10-26-2022 Emergency department [facility] Facility :B End: 10-26-2022 patient visit Start: 10-26-2022 Emergency department JEOVANY TAYLOR MD [facility] End: 10-26-2022 patient visit Work P nayeli: Start: 10-02-2022 ambulatory TAWNY D SELF Facility:[facility] End: 10-02-2022 [facility] Start: 10-02-2022 Patient encounter Tawny Das Self DO Vascular Surgery End: 10-02-2022 procedure Work Phone: Comment on above: PAD (peripheral artery disea se) ([facility]) Start: 09-25-2022 ambulatory TAWNY Das SELF Facility:[facility] End: 09-25-2022 Hospital Start: 09-21-2022 Telephone encounter Tawny Pippa Bosele DO Vascul gabriel Surgery Work Phone: Comment on above: Patient Question Start: 09-19-2022 Telephone encounter Tawny Pippa Self DO Vascul ar Surgery Work Phone: Comment on above: Orders Start: 09-05-2022 Patient encounter Ulises Hermosillo MD All Source Collection Manager al Medicine End: 09-05-2022 procedure Work Phone: [place] Comment on above: Thrush (oral) (Primary Dx); Prediabetes; Essential hypertension Start: 09-05-2022 ambulatory Ulises Hermosillo MD Internal Medicine [place] End: 09-05-2022 Work Phone: Comment on above: Mouth/Lip Problem Start: 08-31-2022 ambulatory ULISES HERMOSILLO Facility:[facility] End: 08-31-2022 Hospital Start: 08-31-2022 Patient encounter Oly Smith APRN.CNP Internal Medicine [place] End: 08-31-2022 procedure Work Phone: Comment on above: Situational anxiety (Primary Dx); Allergic conjunctivitis of b oth eyes; Recurrent major depression i n partial remission ([facility]); Essential hypertension; Coronary artery disease invo lving [place] coronary artery of [place] heart without angina pectoris; Chronic bronchitis, unspecif ied chronic bronchitis type ([facility]); Encounter for immunization; Mixed hyperlipidemia; Lung nodule; Screening for osteoporosis; Asymptomatic menopause Start: 08-13-2022 Telephone encounter Ulises Hermosillo MD Inte [facility] Medicine Work Phone: [place] Comment on above: Patient Update Start: 08-02-2022 Telephone encounter Tawny Self DO Vascul ar Surgery Work Phone: Comment on above: Appointment Start: 07-31-2022 ambulatory ULISES HERMOSILLO Facility:[facility] End: 07-31-2022 Hospital Start: 07-31-2022 Patient encounter Savanna Boldennathanael Kenny APRN.CN P Pulmonary Medicine End: 07-31-2022 procedure Work Phone: Comment on above: Lung nodules (Primary Dx); Current smoker Start: 07-26-2022 ambulatory UNKNOWN PROVIDER Facility:[facility] Start: 07-20-2022 Refill Ulises Hermosillo MD Internal Medicine [place] Work Phone: Comment on above: Refill Request Start: 07-13-2022 Telephone encounter Tawny Self DO Vascul ar Surgery Work Phone: Comment on above: Appointment Start: 07-09-2022 ambulatory ULISES HERMOSILLO Facility:[facility] End: 07-10-2022 Hospital Start: 07-09-2022 ambulatory Respiratory Therapist [facility] Pulmonary Medicine End: 07-09-2022 Work Phone: Comment on above: Arrived Start: 07-09-2022 Patient encounter Respiratory Therapist [facility] derick [facility] End: 07-09-2022 procedure Work Phone: Start: 07-06-2022 Telephone encounter Margaret Shrestha MD Pulmon gabriel Medicine Work Phone: Comment on above: Orders Start: 06-14-2022 Refill Ulises Hermosillo MD Internal Medicine [place] Work Phone: Comment on above: Refill Request Start: 06-06-2022 ambulatory ULISES HERMOSILLO Facility:[facility] End: 06-06-2022 Hospital Start: 06-06-2022 ambulatory Pulm [facility] End: 06-06-2022 Work Phone: Comment on above: Spirometry Start: 06-06-2022 Patient encounter Pulm Fct Lab [facility] NATANAEL MAYNARD End: 06-06-2022 procedure Work Phone: Comment on above: Asthma-COPD overlap syndrome (HCC) (Primary Dx); Wheezing; Smoking Start: 06-04-2022 Telephone encounter Ulises Hermosillo MD Inte rnal Medicine Work Phone: [place] Comment on above: Aerochamber spacer Start: 05-31-2022 Telephone encounter Ulises Hermosillo MD Inte rnal Medicine Work Phone: [place] Comment on above: Orders Start: 05-30-2022 Orders Only Savanna Kenny APRN.RECYCLING TECHNICIAN Pulmonary Medicine Work Phone: Comment on above: Tobacco use disorder (Primar y Dx) Smoker (Primary Dx); Encounter for screening for malignant neoplasm of lung Start: 05-28-2022 Refill Tracy Ramires APRN.RECYCLING TECHNICIAN Cardi ology Work Phone: Comment on above: Refill Request Start: 05-25-2022 Refill Ulises Hermosillo MD Internal Medicine [place] Work Phone: Comment on above: Refill Request Start: 05-23-2022 Telephone encounter Tracy Ramires APRN.RECYCLING TECHNICIAN C ardiology Work Phone: Comment on above: Results Start: 05-21-2022 ambulatory TRACY RAMIRES Facility:[facility] End: 05-21-2022 Hospital Start: 05-21-2022 Patient encounter Echocardiogram Wstr Cardiolo gy End: 05-21-2022 procedure Work Phone: Comment on above: DIAZ (dyspnea on exertion) Start: 05-11-2022 ambulatory ULISES HERMOSILLO Facility:[facility] End: 05-11-2022 Hospital Start: 05-11-2022 Patient encounter Ulises Hermosillo MD All Source Collection Manager al Medicine [place] End: 05-11-2022 procedure Work Phone: Comment on above: Chronic bronchitis, unspecif ied chronic bronchitis type (HCC) (Primary Dx); Recurrent major depression i n partial remission (HCC); Gastroesophageal reflux dise ase, unspecified whether esophagitis present; Need for vaccination; Bipolar affective disorder, current episode mixed, current episode severity unspecified (HCC); PAD (peripheral artery disea se) (HCC) Start: 05-07-2022 Refill Ulises Hermosillo MD Internal Medicine [place] Work Phone: Comment on above: Refill Request Start: 05-02-2022 Evaluation and BETINA GODDARD MD Facility:A End: 05-05-2022 management of inpatient Start: 05-02-[address] BETINA GODDARD MD [facility] End: 05-05-2022 management of inpatient Work Phone: Start: 05-02-2022 Emergency department [facility] Facility :B End: 05-02-2022 patient visit Start: 05-02-2022 Emergency department [facility] End: 05-02-2022 patient visit Work P nayeli: Start: 04-30-2022 ambulatory TRACY RAMIRES Facility:[facility] End: 04-30-2022 [facility] Start: 04-30-2022 Patient encounter Tracy Ramires BULB BRANDER.RECYCLING TECHNICIAN Car diology End: 04-30-2022 procedure Work Phone: Comment on above: DIAZ (dyspnea on exertion) (P rimary Dx); Essential hypertension; Coronary artery disease invo lving [place] coronary artery of [place] heart without angina pectoris; Mixed hyperlipidemia; Smoker; Stenosis of carotid artery, unspecified laterality Start: 04-03-2022 Refill Ulises Hermosillo MD Internal Medicine [place] Work Phone: Comment on above: Refill Request Start: 03-16-2022 Refill Eri Peguero APRN.C COVERSTITCH MACHINE OPERATOR Pulmonary Medicine Work Phone: Comment on above: Refill Request Start: 03-13-2022 ambulatory ULISES HERMOSILLO Facility:[facility] End: 03-13-2022 Hospital Start: 03-13-2022 Patient encounter Savanna Kenny APRN.ALYSSA P Pulmonary Medicine End: 03-13-2022 procedure Work Phone: Comment on above: Dyspnea on exertion (Primary Dx); Smoker; Encounter for screening for malignant neoplasm of lung Start: 03-01-2022 Refill Oly Older BULB BRANDER.RECYCLING TECHNICIAN Internal Me dylan Phelan Work Phone: Comment on above: Refill Request Start: 10-10-2021 ambulatory ULISES Deal [facility] Start: 08-14-2021 ambulatory [facility] Start: 08-14-2021 ambulatory [facility] Start: 04-29-2018 Emergency department patient UNKNOWN PROVIDER [facility] visit Procedures Date Procedure Procedure Detail Performing Clin ician Start: 08-31-2022 INFLUENZA SEASONAL Oly Older A PRN.LINDA QUADRIVALENT HIGH DOSE AGE Work Phone: 65+ Start: 07-09-2022 Noninvasive ear/pulse Margaret Shrestha MD oximetry multiple deter Work Steven ne: Start: 06-06-2022 Brncdilat rspse spmtry Tami elly Kenny BULB BRANDER.RECYCLING TECHNICIAN pre&post-brncdilat admn Work Steven ne: Start: 05-21-2022 Echo tthrc r-t 2d Tracy E Ne abimbola BULB BRANDER.RECYCLING TECHNICIAN w/wom-mode compl spec&colr Work Phone: d Start: 04-03-2017 Colonoscopy Oly Older BULB BRANDER .LINDA Work Phone: Cervical (qualifier value) ALETHA KILLIAN DO Work Phone: Comment on above: replacement of 2 discs Cholecystectomy EMMANUEL KILLIAN DO Work Phone: Cholecystocecostomy EMMANUEL WHEELER DO Work Phone: Hysterectomy EMMANUEL KILLIAN DO Work Phone: None (qualifier value) EMMANUEL QUICK DO Work Phone: Tonsillectomy EMMANUEL KILLIAN [employer] Work Phone: Upper limb structure (body structure) EMMANUEL KILLIAN [employer] Work Phone: Comment on above: left Plan of Treatment Date Care Activity Detail Author Start: 04-03-2027 Colonoscopy COLONOSCOPY [facility] Start: 04-03-2027 COLORECTAL CANCER COLORECTAL CANCER [facility] SCREENING SCREENING Start: 09-27-2026 LIPID SCREEN LIPID SCREEN [facility] Start: 10-19-2024 DIABETES SCREEN DIABETES SCREEN [facility] Start: 01-01-2024 ANNUAL PCP TEAM CHRONIC ANNUAL PCP TEAM CHRONI C [facility] DISEASE VISIT DISEASE VISIT Start: 09-05-2023 ANNUAL PCP TEAM CHRONIC ANNUAL PCP TEAM CHRONI C [facility] DISEASE VISIT DISEASE VISIT Start: 08-31-2023 ANNUAL PCP TEAM CHRONIC ANNUAL PCP TEAM CHRONI C [facility] DISEASE VISIT DISEASE VISIT Start: 08-31-2023 COVID-19 VACCINE (2 - COVID-19 VACCINE (2 - [facility] Pfizer series) Pfizer series) Comment on above: Postponed from 12/12/2021 (D eclined at this time) Start: 08-31-2023 SHINGRIX VACCINE (1 of 2) SHINGRIX VACCINE (1 of 2) [facility] Comment on above: Postponed from 2005 (D eclined at this time) Start: 08-31-2023 Urine microalbumin profile DTAP,TDAP,TD (1 - T dap) [facility] Comment on above: Postponed from 1974 (D eclined at this time) Start: 07-26-2023 Influenza vaccination LUNG CANCER SCREENING [facility] Start: 05-11-2023 ANNUAL PCP TEAM ANNUAL PCP TEAM CHRONIC [facility] CHRONIC DISEASE VISIT DISEASE VISIT Start: 05-11-2023 BP CONTROLLED BP CONTROLLED (<130/80) [facility] (<130/80) Start: 04-21-2023 PNEUMOVAX AGE 65 AND PNEUMOVAX AGE 65 AND [facility] OVER WITH 5YR OVER WITH 5YR LOOKBACK LOOKBACK (#1) (#1) Start: 11-26-2022 Alpha 1 antitrypsin [id number] BL Lab C [facility] End: 01-26-2023 [Mass/volume] in Routine Stage 3 severe Work Steven ne: Serum or Plasma COPD by GOLD classification (HCC) Expected: 11/26/2022, Expires: 01/26/2023 Comment on above: Expected: 11/26/2022, s: 01/26/2023 Start: 11-26-2022 CBC W Auto CBC + DIFF Lab [facility] End: 01-26-2023 Differential panel - Routine Hemoptysis Work Steven ne: Blood Expected: 11/26/2022, Expires: 01/26/2023 Comment on above: Expected: 11/26/2022, s: 01/26/2023 Start: 11-11-2022 ADVANCE DIRECTIVE ADVANCE DIRECTIVE [facility] DISCUSSION DISCUSSION Start: 10-19-2022 ANNUAL PCP TEAM ANNUAL PCP TEAM CHRONIC [facility] CHRONIC DISEASE VISIT DISEASE VISIT Start: 09-27-2022 Hepatitis B surface LDL CHOLESTEROL [facility] antibody level Start: 08-11-2022 CBC panel - Blood by CBC Lab Routine PAD [facility] End: 10-11-2022 Automated count (peripheral artery Work Phone: disease) (HCC) Expected: 08/11/2022, Expires: 10/11/2022 Comment on above: Expected: 08/11/2022, s: 10/11/2022 Start: 08-11-2022 Comprehensive metabolic COMP METABOLIC PANEL [facility] End: 10-11-2022 2000 panel - Serum or Lab Routine PAD Work Phone : Plasma (peripheral artery disease) (HCC) Expected: 08/11/2022, Expires: 10/11/2022 Comment on above: Expected: 08/11/2022, s: 10/11/2022 Start: 08-11-2022 Lipid 1996 panel - LIPID PANEL BASIC Lab [facility] End: 10-11-2022 Serum or Plasma Routine PAD (peripheral Work Steven ne: artery disease) (HCC) Expected: 08/11/2022, Expires: 10/11/2022 Comment on above: Expected: 08/11/2022, s: 10/11/2022 Start: 07-12-2022 Influenza vaccination [facility] Start: 12-12-2021 COVID-19 VACCINE (2 - COVID-19 VACCINE (2 - [facility] Pfizer 3-dose series) Pfizer 3-dose series) Start: 12-12-2021 COVID-19 VACCINE (2 - COVID-19 VACCINE (2 - [facility] Pfizer series) Pfizer series) Start: 11-11-2021 ADVANCE DIRECTIVE ADVANCE DIRECTIVE [facility] DISCUSSION DISCUSSION Start: 01-06-2021 BP CONTROLLED (<130/80) BP CONTROLLED (<130/80 ) [facility] Start: 2020 BONE DENSITY BONE DENSITY [facility] Start: 04-21-2019 PNEUMOCOCCAL: 65+ (2 - PNEUMOCOCCAL: 65+ (2 - [facility] PCV) PCV) Start: 2010 Influenza vaccination LUNG CANCER SCREENING [facility] Start: 2005 Influenza vaccination LUNG CANCER SCREENING [facility] Start: 2005 SHINGRIX VACCINE (1 of SHINGRIX VACCINE (1 of [facility] 2) 2) Start: 2000 COLOGUARD (FIT-DNA) COLOGUARD (FIT-DNA) [facility] Start: [address] COLONOGRAPHY [facility] Start: 2000 FECAL OCCULT BLOOD FECAL OCCULT BLOOD [facility] Start: 2000 SIGMOIDOSCOPY SIGMOIDOSCOPY [facility] Start: 1985 Zoledronic acid therapy ALPHA-1 ANTITRYPSIN [facility] DEFICIENCY SCREENING Start: 1974 Urine microalbumin DTAP,TDAP,TD (1 - Tdap) [facility] profile Start: 1961 PNEUMOCOCCAL: 65+ (1 - PNEUMOCOCCAL: 65+ (1 - [facility] PCV) PCV) CT LUNG SCREEN WO IVCON CT LUNG SCREEN WO IVCON [facility] End: 10-10-2022 Radiology Routine Work Phone: Smoker Encounter for screening for malignant neoplasm of lung 1 Occurrences starting 05/30/2022 until 10/10/2022 Comment on above: 1 Occurrences starting 05/30 until 10/10/2022 Dxa bone density DXA-AXIAL SKELETON [facility] End: 09-30-2023 study 1/> sites Radiology Routine Work Phone: axial skel Screening for osteoporosis Asymptomatic menopause 1 Occurrences starting 08/31/2022 until 09/30/2023 Comment on above: 1 Occurrences starting 08/31 until 09/30/2023 Echocardiography ECHO Cardiology Routine [facility] End: 04-30-2023 DIAZ (dyspnea on Work Phone: exertion) 1 Occurrences starting 04/30/2022 until 04/30/2023 Comment on above: 1 Occurrences starting 04/30 until 04/30/2023 LUNG DIFFUSION LUNG DIFFUSION [facility] End: 04-12-2023 CAPACITY (DLCO) CAPACITY (DLCO) PFT Work Phone: Routine Dyspnea on exertion 1 Occurrences starting 03/13/2022 until 04/12/2023 Comment on above: 1 Occurrences starting 03/13 until 04/12/2023 OXIMETRY WITH OXIMETRY WITH [facility] End: 08-05-2023 AMBULATION AMBULATION PFT Routine Work Phon e: SOB (shortness of breath) 1 Occurrences starting 07/06/2022 until 08/05/2023 Comment on above: 1 Occurrences starting 07/06 until 08/05/2023 PVR LEG SHERIN VAS PVR LEG SHERIN VAS LAB [facility] End: 05-11-2023 LAB Vascular Lab Routine PAD Work Ph one: (peripheral artery disease) (HCC) 1 Occurrences starting 05/11/2022 until 05/11/2023 Comment on above: 1 Occurrences starting 05/11 until 05/11/2023 PVR LEG SHERIN VAS PVR LEG SHERIN VAS LAB [facility] End: 09-21-2023 LAB Vascular Lab Routine Work Phone: Peripheral arterial disease (HCC) 1 Occurrences starting 09/21/2022 until 09/21/2023 Comment on above: 1 Occurrences starting 09/21 until 09/21/2023 PVR LEG SHERIN VAS PVR LEG SHERIN VAS LAB [facility] End: 10-02-2023 LAB Vascular Lab Routine PAD Work Ph one: (peripheral artery disease) (HCC) 1 Occurrences starting 10/02/2022 until 10/02/2023 Comment on above: 1 Occurrences starting 10/02 until 10/02/2023 Radiologic exam chest XR CHEST 2V [facility] End: 12-26-2023 2 views FRONTAL/LAT Radiology Work Phone : Routine Hemoptysis 1 Occurrences starting 11/26/2022 until 12/26/2023 Comment on above: 1 Occurrences starting 11/26 until 12/26/2023 SPIROMETRY - BASELINE SPIROMETRY - BASELINE [facility] End: 04-12-2023 AND POST DILATOR AND POST DILATOR PFT Work Phone : Routine Dyspnea on exertion 1 Occurrences starting 03/13/2022 until 04/12/2023 Comment on above: 1 Occurrences starting 03/13 until 04/12/2023 SPIROMETRY - BASELINE AND SPIROMETRY - BASELINE AND [facility] POST DILATOR POST DILATOR PFT Routine Work Ph one: Dyspnea on exertion 06/06/2022 9:[address] [facility] Immunizations Immunization Date Immunization Notes Care Provider Facility 08-31-2022 influenza, high-dose, Oly Older BULB BRANDER.[facility] quadrivalent vaccine Work Phone: (FLUZONE HIGH DOSE QUADRIVALENT) 05-11-2022 pneumococcal Conjugate, Ulises Hermosillo MD [facility] unspecified formulation Work Phone: Work Phone: 05-11-2022 pneumococcal (PCV20) Ulises Hermosillo MD [facility] vaccine, 20 valent Work Phone: (PREVNAR 20) 11-21-2021 COVID-19 vaccine, age Oly Older BULB BRANDER.[facility] 12+ yr (PFIZER-BIONTECH Work Phone: Work Phone: - SIGALA TOP) 08-23-2020 influenza, high-dose, Oly Older BULB BRANDER.RECYCLING TECHNICIAN [facility] quadrivalent vaccine Work Phone: (FLUZONE HIGH DOSE QUADRIVALENT) 01-06-2020 influenza, injectable, Oly Older BULB BRANDER.RECYCLING TECHNICIAN [facility] quadrivalent, contains Work Phone: Work Phone: preservative 04-21-2018 pneumococcal Oly Older BULB BRANDER.[facility] polysaccharide vaccine, Work Phone: 23 valent 09-13-2011 influenza, seasonal, EMMANUEL [facility] injectable, preservative Work Phone: free 09-13-2011 pneumococcal EMMANUEL [facility] polysaccharide vaccine, 23 valent Payers Date Payer Category Payer Medicare [id number] 2021 Unknown ANTHEM [employer]UE [employer] AND BLUE [id number] SHIELD ANTHEM MEDIBLUE O [id number] 2021-Present [phone] [address] [place] [address] [facility] [place] Unknown [id number] 2021 Medicaid MEDICAID [facility] MEDICAID [id number] 2021-Present [phone] [address] [place] [address] Medicaid 2021 Medicaid [id number] 2021 Medicaid MEDICAID [facility] MEDICAID [id number] 2021-Present [phone] [address] [place] [id number] Medicaid 2021 Unknown 2021 Unknown [id number] 1955 Unknown [id number] 1955 Unknown [id number] 1955 Unknown [id number] 1955 Unknown [id number] Social History Date Type Detail Facility Start: 11-11-1966 Tobacco smoking status Smokes tobacco daily Cl [facility] End: 10-02-2022 [facility] Start: 11-11-1966 History of tobacco use Cigarette Smoker [facility] Start: 12-05-2021 Alcohol intake Current drinker of [facility] End: 01-01-2023 alcohol (finding) Start: 10-06-2019 History SDOH Alcohol 2 [facility] Frequency Start: 10-06-2019 History SDOH Alcohol 3 [facility] Std Drinks Start: 10-06-2019 Tobacco Comment down to 1ppd 10/06/19 [facility] Start: 1955 Sex Assigned At Not on file [facility] Start: 03-03-2022 Exposure to SARS-CoV-2 Not sure [facility] End: 08-31-2022 (event) Start: 06-14-2021 Tobacco smoking status Heavy tobacco smoker [facility] (finding) Work Phone: Sex Assigned At Sex [facility] Work Phone: Start: 04-24-2022 Exposure to SARS-CoV-2 Unable to assess [facility] End: 07-13-2022 (event) Work Phone: Start: 05-30-2022 Cigarettes smoked 2 [facility] End: 01-01-2023 current (pack per day) - Reported Start: 05-30-2022 Tobacco use and Smokeless tobacco [facility] in End: 10-02-2022 exposure non-user Work Phone: Start: 07-31-2022 Tobacco Comment started age 10 - down [facility] to 1.5 ppd lately Start: 10-02-2022 Tobacco Comment started age 10 - down [facility] to 1.5 ppd lately, now down to 1 ppd Start: 11-26-2022 Alcohol intake Ex-drinker (finding) [facility] Start: 01-01-2023 History SDOH Alcohol 5 [facility] Frequency Medical Equipment Procedure Code Equipment Code Equipment Original Equipment Identifi er Dates Text Brt-Xg-Z-Kind [id number] Start: Implant - [id number] Comment on above: Description: innova vascular sten Liner 36mm 0d E X3 5.9mm Acetabular Hip - [id number] Start: 03-25-2019 [id number] Shell 54mm E Hemispherical Tritanium Acet abular [id number] Start: 03-25-2019 Primary Rim Cluster Hole - [id number] Head V40 36mm 0mm Offset Taper Biolox Del ta Femoral [id number] Start: 03-25-2019 Hip - [id number] Stem Accolade Ii 6 127d Femoral - [id number] Start: 03-25-2019 Patch Xenosure Bovine Pericardial 14x1cm Vascular [id number] Start: 10-20-2019 Nonpyrogenic Sterile - [id number] Screw Trident Secur-Fit Torx 6.5mm Titani um 25mm [id number] Start: 03-25-2019 Bone Sterile Acetabular - [id number] Stent Innova 8mm 80mm 130cm Vascular Self Expand [id number] Start: 10-20-2019 Radiopaque Hybrid Cell - [id number] Functional Status Date Assessment Result Facility 12-23-2022 Functional Status Independent [facility] 12-23-2022 Functional Status Standard Safety ID band on, [facility] Call device within reach, Bed [place] in low position, Wheels locked, Upper/Half-Length side-rails up, Phone within reach, personal items within reach, Bedside Cart Locked 10-26-2022 Functional Status Independent [facility] 10-26-2022 Functional Status Room check performed [facility] ospital [facility] 05-05-2022 Functional Status Room located near nursing stat ion, [facility] Door open, Work Phone: Non-Slip footwear, Room check performed 05-05-2022 Functional Status [facility] Work Phone: 05-04-2022 Functional Status Ambulation in Room [facility] Work Phone: 05-04-2022 Functional Status Bath cloths [facility] Work Phone: 05-03-2022 Functional Status [facility] Work Phone: 05-02-2022 Functional Status Hospital bed [facility] Work Phone: 05-02-2022 Functional Status [facility] Work Phone: 05-02-2022 Functional Status Standard Safety ID band on, [facility] Call device within reach, Bed Wo rk in low position, Wheels locked, Upper/Half-Length side-rails up, Phone within reach, personal items within reach Mental Status Date Assessment Result Facility 12-23-2022 Mental Status Orientation Oriented x 4 [facility] 12-23-2022 Mental Status [facility] 10-26-2022 Mental Status Orientation Oriented x 4 [facility] 10-26-2022 Mental Status [facility] 05-05-2022 Mental Status Oriented x 4 [facility] Work Phone: 05-04-2022 Mental Status [facility] Work Phone: 05-04-2022 Mental Status [facility] Work Phone: 05-04-2022 Mental Status [facility] Work Phone: 05-02-2022 Mental Status Orientation Oriented x 4 [facility] Work Phone: Clinical Notes 07-07-2020 to 01-01-2023 Telephone Encounter - GIO Cardona - 01/01/2023 3:42 PM ESTPatient CharliOly Smith APRN.LINDA - 01/01/2023 1:12 PM Aiden Asher MD - 11/26/2022 12:45 PM EST Note Date & Type Note Facility 01-01-2023 Miscellaneous Formatting of this note migh t be different from the original. 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 Uses drinking as a coping mechanism to deal with anxiety and stress. Patient was able to write th e following resources down as places to call or look into for detoxification and substance abuse: [facility] [address] [place] [address] [id number] [place] [address] [facility] [address] [place] [address] [place] [address] [phone] Patient states she may end u p just going to [facility] if she can't find anywhere to go to assist as she really needs to detox. Advised to call these numbers and if additional assistance is needed to inform this SW. GIO Cardona January 01, 2023 documented in this encounter 01-01-2023 Note HNO ID: [id number] [facility] Author: Oly Smith APRN.LINDA [place] Service: ? Author Type: Nurse Practitioner Type: Progress Notes Filed: 01/01/2023 3:27 PM Note Text: CC: Patient presents with: Follow Up HPI Vince Koenig is a 67 year old femal e who presents today for 4 month follow-up however her main concern today is alcohol withdrawal. Patient states she started drinking heavily afte r the loss of her brother, son and dog. For the past three months she has b een drinking about 30-40 beers a week, sometimes more. Occasionally has a bout 1 quart of whiskey in one day. Hasn't had a drink since yesterday morning, had three beers. Since then she has been feeling anxious, tired , shaky, weak, and nauseated. Denies sweats, itching, numbness/tinglin g, burning or crawling sensations, visual or auditory hallucinations, heada ches, seizures, confusion or disorientation. She is interested inpati ent alcohol detox but unsure where to go for this. Denies SI or HI. REVIEW OF SYSTEMS GENERAL: Negative for significant weight loss, fever, chills, night sweats RESPIRATORY: chronic SOB with exertion, cough and wheezing secondary to COPD. CARDIOVASCULAR: Negative for chest pain, leg swelling, palpitations, orthopnea, and paroxysmal nocturnal dysp gabino PAST MEDICAL HISTORY Diagnosis Date Acute pancreatitis 2010 [facility] Alcohol use disorder 01/18/2016 [facility] Anxiety 12/14/2015 Bipolar affective disorder, currently ac tive ([facility]) 01/18/2016 [facility] Chronic bronchitis ([facility]) 07/26/2016 Closed skull fracture ([facility]) 1994 [facility], [facility] Coronary artery disease DDD (degenerative disc disease), cervica l Endometriosis 2007 Essential hypertension 12/14/2015 GERD (gastroesophageal reflux disease) 0 03/13/2019 History of colon polyps History of gastric ulcer 12/14/2015 HLD (hyperlipidemia) Injury of left facial nerve 1994 PAD (peripheral artery disease) ([facility]) Recurrent major depression in partial re mission ([facility]) 12/14/2015 S/P drug eluting coronary stent placemen [...] FACIAL NERVE DECOMPRESSION AND/REP AIR Left 1989 [facility] ALLERGIES Patient has no known allergies . MEDICATIONS traZODone (DESYREL) 100 mg tablet Take 2 tablets by mouth daily at bedtime. tiwujwntibh-spdgtxhcr-cnkbimyf (TRELEGY ELLIPTA) 200-62.5-25 mcg inhalation powder Inhale [...] Apply s paringly to area for rash/itching. albuterol HFA (VENTOLIN HFA) 90 mcg/actu ation [...] Father 50 lung cancer Cancer Sister 61 l (more content not included)... 01-01-2023 Note HNO ID: [id number] [facility] Author: RT Aziza(R) Bristol Service: ? Author Type: Nurse Care Manager Type: Progress Notes Filed: 01/01/2023 1:02 PM Note Text: Radiology Service Progress Note PATIENT NAME: Vince Koenig DATE OF SERVICE: January 01, 2023 TIME: 12:51 PM PATIENT IDENTITY VERIFICATION COMPLETED USING TWO (2) IDENTIFIERS: Name and Date of confirmed by patient v erbally. FALL SCREENING: Has the patient had 2 fa lls in the last year or 1 fall with injury or currently using an Ambula tory Assistive Device (Walker, Cane, Wheelchair, Crutches, etc.)? No PATIENT GENDER DATA: Female. s tatus: : No status: NO. PATIENT RELEVANT IMPLANT DATA REVIEWED: Yes RADIOLOGY DEPARTMENT: General X-ray: Exa m(s) Completed: Chest X-Ray PERIPHERAL IV DATA: Not applicable SIGNED BY: RT Aziza(R) January 01, 2023 12:51 PM 01-01-2023 Instructions Oly Smith APRN.CNP - 2022 2:09 PM EST [facility] Alcohol abuse (alcoholism) i s common. More [...] in this encounter 01-01-2023 History of Present [facility] illness Narrative CC: Patient presents with: Follow [...] MEDICAL HISTORY Diagnosis Date Acute pancreatitis 2010 Maynor Cruz Alcohol use disorder 01/18/2016 [facility] Anxiety 12/14/2015 Bipolar affective disorder, currently ac tive ([facility]) 01/18/2016 [facility] Angie Jones, [facility] Chronic bronchitis ([facility]) 07/26/2016 Closed skull fracture ([facility]) 1994 [facility], [facility] Coronary artery disease DDD (degenerative disc disease), cervica l Endometriosis 2007 Essential hypertension 12/14/2015 GERD (gastroesophageal reflux disease) 0 03/13/2019 History of colon polyps History of gastric ulcer 12/14/2015 HLD (hyperlipidemia) Injury of left facial nerve 1994 PAD (peripheral artery disease) ([facility]) 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 MEDICATIONS traZODone (DESYREL) 100 mg tablet Take 2 tablets by mouth daily at bedtime. eyhmpvnplab-asozyzpzt-oivciv er (TRELEGY ELLIPTA) 200-62.5-25 mcg inhalation powder [...] like to discuss inpatient rehab facility with social organization professor, referral placed Close follow-up in office in one week, p atient agreeable - [facility] Prescription instructions re viewed with patient as applicable. Potential red flag symptoms discussed with the patient. Reviewed appropriate action plan to take if red flag symptoms occur. Patient agreeable to treatment plan. During this patient visit I have spent approximately 30 minutes in counseling regarding treatment options, medications, and coordinating care. Oly Smith APRN.CNP documented in this encounter 12-23-2022 Hospital Discharge Patient Education 12/23/2022 16:02:45 COPD Flare COPD Flare [facility] instructions Work Phone: You have had a [...] your ankles gets worse Dizziness or weakness [phone] [employer]. [address] [place] [address], [place] [address]. All rights reserved. This information is not [...] by rest an d mild pain reliever 8943-0674 [employer]. [address] [place] [address]. All rights reserved. This information is not intended as a substitute for professional medical care. Always follow your healthcare professional's instructions. Follow Up Care 12/23/2022 13:42:18 With:ULSIES HERMOSILLO MD Address: [address] [place] [address]- When:2-4 days Comments:Return to ED if symptoms worsen 12-23-2022 Note [facility] Thank you for allowing [facility] to assist you with your healthcare needs. [...] to ED if symptoms worsen Where: [address] [place] [address]- Allergies NKA Medications Please ask [...] your ankles gets worse Dizziness or weakness [phone] [employer]. [address] [place] [address]. All rights reserved. This information is not [...] by rest an d mild pain reliever 5735-2576 [employer]. [address] [place] [address], [place] [address]. All rights reserved. This information is not intended as a substitute for professional medical care. Always follow your healthcare professional's instructions. Additional Information VACCINATE! IT SAVES LIVES! Members of the community who have not yet received the COVID-19 vaccine and would like to receive it can visit one of [facility] vaccine clinics. There are many vaccine clinic locations within the [facility]. For locations and available times, please visit [email or web address]. It is important to note that some COVID mobile vaccine clinics are held outdoors and may be canceled in rainy or stormy conditions. To learn more about pediatr ic vaccinations (ages 5-11), we invite you to visit the [facility] webpage. [email or web address] T o learn more about the COVID -19 vaccine, we invite you to visit the [employer] website for a list of frequently asked questions. [email or web address] [facility] Patient Portal Access I nstructions: [facility] and access your personal medical information anytime with the [facility] Patient Portal. If you would like a full copy of your medical records please conta ct the [facility] Records Department Saturday through Saturday between 8a.m. and 4:30p.m. Please follow the directions below to access the portal: 1.Access the email account y ou provided upon registration to the hospital.2.Look for an invitation email from [facility].3.Open the email and access the invitation link: Accept Invitation to [facility] shilo YatraChart4.Fill in the required randle to create your account. Sign into [email or web address] wi th your username and password that [...] you will allow to register on the [facility] Patient Portal for access to your information. You can also access the [employer] Patient Portal on the [employer] larissa. Simply click on Health Records under Health Data and then click on the [employer] logo. HOW TO SAFELY DISPOSE OF PRESCRIPTION [...] Call your local pharmacy or go to [email or web address] to find one close to you.3.Make use of ho usehold items: Use cat litte r or old coffee grounds to dispose medications if other options are not available. Mix your drugs with these household products, seal them in an airtight container and throw it into the garbage. Call [place] [employer]: [phone] to be sure your drugs can be [...] aware that I should contact my doctor. 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 Signa ture: Date/Time: Relationship to Patient: Witness Name/Signature: Date/Time: 12-23-2022 Note [facility] ORIGINAL EXAMINATION: ONE XRAY VIEW OF THE [...] Ordering Provider: JOSE ROBERTO COMBS 12-23-2022 Note [facility] ORIGINAL EXAMINATION: ONE XRAY VIEW OF THE [...] migh t be different from the original. [facility] Notes Last seen pcp 09/05/22 Next appt [...] sent to the pharmacy. Call patient at [phone] (cell) [facility] documented in this encounter 11-26-2022 Note HNO ID: [id number] [facility] Author: MD Jeronimo Carvalho Service: ? Author Type: Physician Type: Progress Notes Filed: 11/26/2022 2:01 PM Note Text: . [facility] Note Patient name: Vince Koenig PCP: Ulises Hermosillo MD CC: Hemoptysis HPI: Vince Koenig 67 year old femal e current heavy smoker, over 100 pack years with PMH significant for bipo lar affective disorder, h/o alcohol abuse, GERD, PAD, HLD, CAD s/p s tent, severe COPD (FEV1 0.83 L 36%), oxygen dependence, previously foll owing in [facility], new to me. Recent admission at [facility] in [place] for AECOPD. CXR reported as normal. Discharged [...] No chest pain or current cough. DME: [facility] Care DATA: PFT 05/2022: Review of spirometry shows severe obstru ction without significant improvement post bronchodilators and mod erate reduction in diffusing capacity Labs: Laboratory testing at [facility], normal CBC and platelet count. Negative COVID and influenza Imaging / Diagnostic Studies: DATE OF EXAM: Jul 26 2022 4:27PM [facility] 0562 - CT LUNG SCREEN WO IVCON / ACC ESSION # [id number] PROCEDURE REASON: multiple diagnoses CLINICAL HISTORY: Lung [...] MEDICAL HISTORY Diagnosis Date Acute pancreatitis 2010 Maynor Cruz Alcohol use disorder 01/18/2016 Dr. Angie Jones, [facility] Anxiety 12/14/2015 Bipolar affective disorder, currently ac tive ([facility]) 01/18/2016 Dr. Angie Jones, [facility] Chronic bronchitis ([facility]) 07/26/2016 Closed skull fracture ([facility]) 1994 [facility], [facility] Coronary artery disease DDD (degenerative disc disease), cervica l Endometriosis 2007 Essential hypertension 12/14/2015 GERD (gastroesophageal reflux disease) 0 03/13/2019 History of colon polyps History of gastric ulcer 12/14/2015 HLD (hyperlipidemia) Injury of left facial nerve 1994 PAD (peripheral artery disease) ([facility]) 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 rgcvjwvfaqa-fhqkszgxd-gsyznduv (TRELEGY ELLIPTA) 200-62.5-25 mcg inhalation powder Inhale [...] content not included)... 11-26-2022 History of Present [facility] illness Narrative Images from the original note were not i ncluded. . [facility] [place] Note Patient name: Vince Koenig PCP: Ulises Hermosillo MD CC: Hemoptysis HPI: Vince Koenig 67 ye ar old female current heavy smoker, over 100 pack years with PMH significant for bipolar affective disorder, h/o alcohol abuse, GERD, PAD, HLD, CAD s/p stent, severe COPD (FE V1 0.83 L 36%), oxygen depen julio, previously following in [facility], new to me. Recent admission at [facility] in [place] for AECOPD. CXR reported as normal. Discharged [...] No chest pain or current cough. DME: [facility] DATA: PFT 05/2022: Review of spirometry shows s evere obstruction without significant improvement post bronchodilators and moderate reduction in diffusing capacity Labs: Laboratory testing at [facility], normal CBC and platelet count. Negative COVID and influenza Imaging / Diagnostic Studies: DATE OF EXAM: Jul 26 2022 4:27PM [facility] 0562 - CT LUNG SCREEN WO IVCON / ACC ESSION # [id number] PROCEDURE REASON: multiple diagnoses CLINICAL HISTORY: Lung [...] MEDICAL HISTORY Diagnosis Date Acute pancreatitis 2010 Maynor Cruz Alcohol use disorder 01/18/2016 [facility] Anxiety 12/14/2015 Bipolar affective disorder, currently ac tive ([facility]) 01/18/2016 [facility] Chronic bronchitis ([facility]) 07/26/2016 Closed skull fracture ([facility]) 1994 [facility], [facility] Coronary artery disease DDD (degenerative disc disease), cervica l Endometriosis 2007 Essential hypertension 12/14/2015 GERD (gastroesophageal reflux disease) 0 03/13/2019 History of colon polyps History of gastric ulcer 12/14/2015 HLD (hyperlipidemia) Injury of left facial nerve 1994 PAD (peripheral artery disease) ([facility]) 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 fhwphwillwh-ffjwapscl-rrocda er (TRELEGY ELLIPTA) 200-62.5-25 mcg inhalation powder [...] FACIAL NERVE DECOMPRESSION &/REPAI R Left 1989 [facility] PMH, Social history, family history and surgical [...] cessation strongly encouraged Salima Asher MD [facility] documented in this encounter 10-26-2022 Hospital Discharge Patient Education 10/26/2022 19:44:17 COPD Flare COPD Flare [facility] instructions Work Phone: You have had a [...] your ankles gets worse Dizziness or weakness [phone] [employer]. [address] [place] [address]. All rights reserved. This information is not intended as a substitute for professional medical care. Always follow your healthcare professional's instructions. Follow Up Care 10/26/2022 16:18:34 With:Go to emergency room if symptoms worsen Address:Unknown When:2-4 days With:ULISES HERMOSILLO MD Address: [address] [place] [address]- When:2-4 days 10-26-2022 Note [facility] Discharge Instructions Thank you for allowing [facility] to assist you with your healthcare needs. [...] MD When Within 2-4 days Where: [address] [place] [address]- Allergies NKA Medications Please ask [...] formote rol? Follow all directions on yo prescription label and read all medication guides. [...] sores or white patches in your mouth an d throat, pain when swallowing; tremors, nervousness, chest [...] may report side effects to FDA at 2-858-GWV-2778. What other drugs will affect budesonide and formoterol? Sometimes it is not safe to use certain medications at the same time. Some drugs can affect your blood levels of other drugs you take, which may increase side effects or make the medications less effective. Many drugs can affect budes onide and formoterol. This includes prescription and rxzk-ntj-leidleq medicines, vitamins, and herbal products. Not all [...] to ensure that the information provided by [employer]. ('[employer]') is accurate, up-to-date, and complete, but no guarantee is made to that effect. Drug information con tained herein may be time se nsitive. [employer] information has been compiled for use by healthcare practitioners and consumers in the [place] and therefore [employer] does not warrant that uses outside o f the [place] are appr opriate, unless specifically indicated otherwise. [employer]s drug information does not endorse drugs, diagnose patients or recommend therapy. [employer] drug information is an in formational resource [...] or ap propriate for any given patient. [employer] does not assume any responsibility for any aspect of healthcare administered with the aid of information [employer] provides. The informat ion contained herein is not intended to cover all possible uses, directions, precautions, warnings, drug interactions, allergic reactions, or adverse effects. If you have questions about the drugs you a re taking, check with your doctor, nurse or pharmacist. Copyright 9288-2143 [employer]. Version: 9.02. Revision Date: 07/08/2019. prednisone (PRED ni sonmemo) Billy What is the most important information [...] take prednisone? Follow all directions on yo ur prescription label and read all medication guides [...] may report side effects to FDA at 3-875-AAK-6358. What other drugs will affect prednisone ? [...] may affect prednisone. This includes prescription and kdnr-mwr-wvdwrjj medicines, vitamins, and herbal products. Not all [...] to ensure that the information provided by [employer] ('[employer]') is accurate, up-to-date, and complete, but no guarantee is made to that effect. Drug information con tained herein may be time se nsitive. [employer] information has been compiled for use by healthcare practitioners and consumers in the [place] and therefore [employer] does not warrant that uses outside o f the [place] are appr opriate, unless specifically indicated otherwise. [employer]'s drug information does not endorse drugs, diagnose patients or recommend therapy. [employer]s drug information is an in formational resource [...] or ap propriate for any given patient. [employer] does not assume any responsibility for any aspect of healthcare administered with the aid of information [employer] provides. The informat ion contained herein is not intended to cover all possible uses, directions, precautions, warnings, drug interactions, allergic reactions, or adverse effects. If you have questions about the drugs you a re taking, check with your doctor, nurse or pharmacist. Copyright 8924-5600 [employer]. Version: 10.. Revision Date: 02/05/2019. doxycycline (oral/injection) (DOX i STACEY kam) Acticlate, Adoxa, Alodox, Av idoxy, Doryx, Mondoxyne [...] with my healthcar e provider before taking doxycycline? You should [...] life-threatening conditions such as an thrax or [place] spot gilda fever. The benefit of treating a serious condition may outweigh any risks to the child's tooth development. How should I take doxycycline? Follow all directions on yo ur prescription label and read all medication guides [...] may report side effects to FDA at 5-795-ULJ-0316. What other drugs will affect doxycyclin e? Sometimes it is not safe to use certain medications at the same time. Some drugs can affect your blood levels of other drugs you take, which may increase side effects or make the medications less effective. Other drugs may affect doxy cycline, including prescription and ucqu-nrf-dlflysm medicines, vitamins, and herbal products. Tell your [...] to ensure that the information provided by [employer]. ('[employer]') is accurate, up-to-date, and complete, but no guarantee is made to that effect. Drug information con tained herein may be time se nsitive. [employer] information has been compiled for use by healthcare practitioners and consumers in the [place] and therefore [employer] does not warrant that uses outside o f the [place] are appr opriate, unless specifically indicated otherwise. [employer]'s drug information does not endorse drugs, diagnose patients or recommend therapy. [employer]s drug information is an in formational resource [...] or ap propriate for any given patient. [employer] does not assume any responsibility for any aspect of healthcare administered with the aid of information [employer] provides. The informat ion contained herein is not intended to cover all possible uses, directions, precautions, warnings, drug interactions, allergic reactions, or adverse effects. If you have questions about the drugs you a re taking, check with your doctor, nurse or pharmacist. Copyright 2524-3455 [employer]. Version: .. Revision Date: 09/14/2020. Education Materials [...] your ankles gets worse Dizziness or weakness [id number] The [employer]. [address] [place] [address]. All rights reserved. This information is not intended as a substitute for professional medical care. Always follow your healthcare professional's instructions. Additional Information VACCINATE! IT SAVES LIVES! Members of the community who have not yet received the COVID-19 vaccine and would like to receive it can visit one of [facility] vaccine clinics. There are many vaccine clinic locations within the [facility]. For locations and available times, please visit [email or web address]. It is important to note that some COVID mobile vaccine clinics are held outdoors and may be canceled in rainy or stormy conditions. To learn more about pediatr ic vaccinations (ages 5-11), we invite you to visit the [facility] webpage. [email or web address]-Wfonj-Cmy [email or web address].html T o learn more about the COVID -19 vaccine, we invite you to visit the [facility] website for a list of frequently asked questions. [email or web address]-[email or web address]_ Asked-Questions.pdf [facility] [employer] Patient Portal Access I nstructions: Stay connected with [facility] and access your personal medical information anytime with the [facility] [employer] Patient Portal. If you would like a full copy of your medical records please conta ct the [facility] Records Department Saturday through Saturday between 8a.m. and 4:30p.m. Please follow the directions below to access the portal: 1.Access the email account y ou provided upon registration to the [facility].2.Look for an invitation email from [facility].3.Open the email and access the invitation link: Accept Invitation to [facility] shilo YatraMusa4.Fill in the required randle to create your account. Sign into [email or web address].[email or web address] wi th your username and password that [...] you will allow to register on the [facility] [employer] Patient Portal for access to your information. You can also access the [employer] Patient Portal on the [employer] larissa. Simply click on Health Records under Health Data and then click on the [employer] logo. HOW TO SAFELY DISPOSE OF PRESCRIPTION ME DICATIONS Please use one of the follow ing methods to safely dispose of your unused medications. 1.Use a drug disposal kit: t drug disposal pouch allows you to safely discard your old and unused drugs. Ask your nurse to give you one when you are discharged.2.Visit a local take-back location: Many local pharmacies and police departments have programs that collect old and unwanted prescription drugs. Call your local pharmacy or go to http://[employer]/9W9Yk9k to find one close to you.3.Make use of ho usehold items: Use cat litte r or old coffee grounds to dispose medications if other options are not available. Mix your drugs with these household products, seal them in an airtight container and throw it into the garbage. Call [place] [employer]: [phone] to be sure your drugs can be [...] aware that I should contact my doctor. 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 Signature: (more content not included)... 10-26-2022 Note [facility] ORIGINAL EXAMINATION: ONE XRAY VIEW OF THE [...] PM Ordering Provider: BRIAN TRINIDAD 10-26-2022 Note [facility] ORIGINAL EXAMINATION: ONE XRAY VIEW OF THE [...] by: Zaid Mckeon MD Preliminary Report By: Ziad Mckeon MD Electronically signed By Zaid silver MD Dictated Date: 10/26/2022 7:05:14 PM Prelim Date: 10/26/2022 7:06:29 PM Sign Date: 10/26/2022 7:06:29 PM Ordering Provider: BRIAN TRINIDAD 10-26-2022 SARS-CoV-2 Negative AO Auto Urine SS (COVID-19) RNA IVANA+probe Ql *NA* (Nph) (10/26/22 5:52 PM) 10-02-2022 Note HNO ID: [id number] [facility] Author: DO Palomo Kaplanveland Service: Vascular Surgery Author Type: Physician Type: Progress Notes Filed: 10/15/2022 2:42 PM Note Text: NAME: VINCE KOENIG [facility] NO: [id number] DATE OF SERVICE: 10/02/2022 Subjective: Vince is here to follow up on peripheral arterial disease. She has a history of right common femora l endarterectomy and iliac intervention by Dr. Rodriges in 2019. Sh memo was last seen by Dr. Rodriges in [...] foll ow up sooner with any concerns. Cb Virk/089 Audio #: [id number] Date Dictated: 10/02/2022 09:31:07 Date Typed: 10/08/2022 10:11:23 Date Revised: 10-02-2022 Note HNO ID: [id number] [facility] Author: DO Franko Kaplan Service: ? Author Type: Physician Type: Progress Notes Filed: 10/02/2022 10:38 AM Note Text: This office note has been dictated. Tawny Self DO 10-02-2022 History of Present [facility] illness Narrative This office note has been dictated. Tawny Self DO documented in this encounter 09-24-2022 Miscellaneous Formatting of this note migh t be different from the original. [facility] Notes Spoke with pt and confirmed appt [...] as soon as able. Thank you! Linda [place] Electronically signed by Linda agarwal 09/21/2022 2:49 PM EST documented in this encounter 09-19-2022 Miscellaneous Formatting of this note migh t be different from the original. [facility] Notes Patient called to reschedule damir lab testing from 07/13. Unable to schedule, stated 09/11. Please place new orders and advise patient for scheduling. documented in this encounter 09-05-2022 Note HNO ID: [id number] [facility] Author: Ulises Hermosillo MD [place] Service: ? Author Type: Physician Type: Progress Notes Filed: 09/05/2022 9:44 PM Note Text: Patient presents with: Pain: Mouth pain x 1 week Vince Koenig was here for above. Sh memo developed general soreness in her gums and mouth after she had a flu s hot. She had trouble eating and chewing. She had not taken any thing for her symptoms. She was under stress due to the of her brother jarred carney. ROS; No cold, no fever, no dysphagia. 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 ([facility]) Bipolar Affective Disorder, Currently Ac tive ([facility]) History of Alcohol Abuse Chronic bronchitis ([facility]) Spinal Stenosis, Lumbar Region Without N eurogenic Claudication Radiculopathy, Lumbar Region Smoker Gerd (Gastroesophageal Reflux Disease) Seasonal Allergies Pad (Peripheral Artery Disease) ([facility]) Anxiety and Depression Prediabetes Chest Pain Other Chest Pain Stenosis of Carotid Artery Mixed Hyperlipidemia Abnormal Stress Test Dyspnea On Exertion Coronary Artery Disease Involving [place] Coronary Artery of [place] Heart Without Angina Pectoris Lung Nodule Current [...] 2 tablets by mouth daily at bedtime. bjyycskynde-tqqmsavep-nevtnwfx (TRELEGY ELLIPTA) 200-62.5-25 mcg inhalation powder Inhale [...] Ulises Hermosillo MD 09-05-2022 History of Present [facility] illness Narrative Patient presents with: Pain: Mouth pain x 1 week Vince Koenig was here f or above. She developed general soreness in her gums and mouth after she had a flu shot. She had trouble eating and chewing. She had not taken any thing for her symptoms. She was under stress due to the of he r brother from [place]. ROS; No cold, no fever, no dysphagia. 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 ([facility]) Bipolar Affective Disorder, Currently Ac tive ([facility]) History of Alcohol Abuse Chronic bronchitis ([facility]) Spinal Stenosis, Lumbar Region Without N eurogenic Claudication Radiculopathy, Lumbar Region Smoker Gerd (Gastroesophageal Reflux Disease) Seasonal Allergies Pad (Peripheral Artery Disease) ([facility]) Anxiety and Depression Prediabetes Chest Pain Other Chest Pain Stenosis of Carotid Artery Mixed Hyperlipidemia Abnormal Stress Test Dyspnea On Exertion Coronary Artery Disease Invo lving [place] Coronary Artery of [place] Heart Without Angina Pectoris Lung Nodule Current [...] 2 tablets by mouth daily at bedtime. aaaasvosjxa-bvpmuabjf-lxutvr er (TRELEGY ELLIPTA) 200-62.5-25 mcg inhalation powder [...] migh t be different from the original. [facility] Notes Patient calls in to report t [...] difficulty with dr inking. Protocols used: Mouth Zicn-FURCR-WL documented in this encounter 08-31-2022 Note HNO ID: [id number] [facility] Author: Oly Smith APRN.[facility] Service: ? 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 She on Plavix and Imdur. She stopped taking ASA because she takes Excedrin a lot and tho ught it was the same thing. 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 Last appointm ent in May. Symbicort was stopped and she was started on Trelegy. She repo rts chronic cough, SOB and wheezing are about the same. Also has ho me oxygen for as needed use. REVIEW OF SYSTEMS See HPI PAST MEDICAL HISTORY Diagnosis Date Acute pancreatitis 2010 Maynor Cruz Alcohol use disorder 01/18/2016 [facility] Anxiety 12/14/2015 Bipolar affective disorder, currently ac tive ([facility]) 01/18/2016 Dr. Angie Jones, [facility] Chronic bronchitis ([facility]) 07/26/2016 Closed skull fracture ([facility]) 1994 [facility], [facility] Coronary artery disease DDD (degenerative disc disease), cervica l Endometriosis 2007 Essential hypertension 12/14/2015 GERD (gastroesophageal reflux disease) 0 03/13/2019 History of colon polyps History of gastric ulcer 12/14/2015 HLD (hyperlipidemia) Injury of left facial nerve 1994 PAD (peripheral artery disease) ([facility]) Recurrent major depression in partial re mission ([facility]) 12/14/2015 S/P drug eluting coronary stent placemen [...] FACIAL NERVE DECOMPRESSION AND/REP AIR Left 1989 [facility] ALLERGIES Patient has no known allergies . MEDICATIONS traZODone (DESYREL) 100 mg tabletTake 2 tablets by mouth daily at bedtime.Disp: 60 tabletRfl: 5 rptldvqrahp-zmlsblorb-tqgwdpeg (TRELEGY ELLIPTA) 200-62.5-25 mcg inhalation powderInhale 1 [...] Smith APRN.CNP - 2021 1:46 PM EDT [facility] Increase venlafaxine to 225 mg, take 150 mg cap with 75 mg cap to equal 225 mg. Take lorazepam as needed. Please use sparingly, no refills. 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 S he on Plavix and Imdur. She stopped taking ASA because she takes Excedrin a lot and thought it was the same thing. 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 Fidencio ast appointment in May. Symbicort was stopped and she was started on Trelegy. She reports chronic cough, SOB and wheezing are about the same. Also has home oxygen for as needed use. REVIEW OF SYSTEMS See [facility] PAST MEDICAL HISTORY Diagnosis Date Acute pancreatitis 2010 Maynor Cruz Alcohol use disorder 01/18/2016 [facility] Anxiety 12/14/2015 Bipolar affective disorder, currently ac tive ([facility]) 01/18/2016 [facility] Chronic bronchitis ([facility]) 07/26/2016 Closed skull fracture ([facility]) 1994 [facility], [facility] Coronary artery disease DDD (degenerative disc disease), cervica l Endometriosis 2007 Essential hypertension 12/14/2015 GERD (gastroesophageal reflux disease) 0 03/13/2019 History of colon polyps History of gastric ulcer 12/14/2015 HLD (hyperlipidemia) Injury of left facial nerve 1994 PAD (peripheral artery disease) ([facility]) 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 MEDICATIONS traZODone (DESYREL) 100 mg t ablet^Take 2 tablets by mouth daily at bedtime.^Disp: 60 tablet^Rfl: 5 dpogbuxbayg-oblgttaft-aqsnct er (TRELEGY ELLIPTA) 200-62.5-25 mcg inhalation powder^Inhale [...] Never done BP CONTROLLED (<130/80) due on 1 ADVANCE DIRECTIVE DISCUSSION Never done COVID-19 VACCINE(2 [...] activity was identified. 08/31/2022 by Oly Smith APRN.RECYCLING TECHNICIAN 2. Allergic conjunctivitis of both eyes - [...] TABLET 5. Coronary artery disease i nvolving [place] coronary artery of [place] heart without angina pectoris - ICD9: 414.01, [...] in July. F ollow-up with lung cancer family resource management specialist as advised 10. Screening for osteoporosis [...] migh t be different from the original. [facility] Notes No thanks. Formatting of this note might be differe nt from the original. Azbe CM with Kailash toro t o let provider know that care plans for patient are available on the portal now. February also wants to let prov ider know that on August 30 at 4 pm they will be having a rounding meeting and if provider would like to attend he can contact them at [phone] Option 3 to arrange. Nena Dozier RN documented in this encounter 08-02-2022 Miscellaneous Formatting of this note migh t be different from the original. [facility] Notes Please call patient to schedule testing prior to appt on 08/14/2022 Thank you documented in this encounter 07-31-2022 Note HNO ID: [id number] [facility] Author: Karly Garcia APRN. LINDA [place] Service: ? Author Type: Nurse Practitioner Type: Progress Notes Filed: 07/31/2022 4:53 PM Note Text: Attestation signed by Savanna thurman APRN.RECYCLING TECHNICIAN at 07/31/2022 4:53 PM TEACHING PROVIDER (Physician/PA/MELISSA) [...] Here to review results from LDCT scan da gilda 07/26/22 for LUNG RADS Category 2 finding. [...] daily. Per her last OV with her deputy assessor, Symbicort was advised to be discontinued as Trelegy wa s added on. Activity: Does light house work but has to stop in between chores to catch her breath. Gets SOB with showering or w ith walking from her bedroom to her kitchen. The patient does not requir e assistance with normal activities of daily living. Modified Medical Research [place] Dyspne a Scale (MMRC) I stop for breath after walking about 10 0 yards or after a few minutes on level ground 3 History of respiratory exposures include : Occupational: None Environmental: Second had smoke exposure as a child Father and mother had lung cancer Past Medical History: PAST MEDICAL HISTORY Diagnosis Date Acute pancreatitis 2010 Maynor Cruz Alcohol use disorder 01/18/2016 [facility] Anxiety 12/14/2015 Bipolar affective disorder, currently ac tive ([facility]) 01/18/2016 [facility] Chronic bronchitis ([facility]) 07/26/2016 Closed skull fracture ([facility]) 1994 [facility], [facility] Coronary artery disease DDD (degenerative disc disease), cervica l Endometriosis 2007 Essential hypertension 12/14/2015 GERD (gastroesophageal reflux disease) 0 03/13/2019 History of colon polyps History of gastric ulcer 12/14/2015 HLD (hyperlipidemia) Injury of left facial nerve 1994 PAD (peripheral artery disease) ([facility]) Recurrent major depression in partial re mission ([facility]) 12/14/2015 S/P drug eluting coronary stent placemen [...] FACIAL NERVE DECOMPRESSION AND/REP AIR Left 1989 [facility] Family Hx: FAMILY HISTORY Problem Relation Age [...] content not included).. . 07-31-2022 Instructions Sincere Damian.RECYCLING TECHNICIAN - 07/31/2022 2:44 PM EDT [facility] Good news! Your CT scan for lung [...] please feel free to contact me at [phone]. Karly Garcia APRN.RECYCLING TECHNICIAN documented in this encounter 07-31-2022 History of Present [facility] illness Narrative Images from the original note [...] daily. Per her last OV with her deputy assessor, Symbicort was advised to be discontinued as Trelegy was added on. Activity: Does light house w ork but has to stop in between chores to catch her breath. Gets SOB with showering or with walking from her bedroom to her kitchen. The patient does not require assistance with normal activities of daily living. Modified Medical Research [place] Dyspne a Scale (MMRC) I stop for breath after walk ing about 100 yards or after a few minutes on level ground 3 History of respiratory exposures include : Occupational: None Environmental: Second had smoke exposure as a child Father and mother had lung cancer Past Medical History: PAST MEDICAL HISTORY Diagnosis Date Acute pancreatitis 2010 Maynor Cruz Alcohol use disorder 01/18/2016 Dr. Angie Jones, [facility] Anxiety 12/14/2015 Bipolar affective disorder, currently ac tive ([facility]) 01/18/2016 Dr. Angie Jones, [facility] Chronic bronchitis ([facility]) 07/26/2016 Closed skull fracture ([facility]) 1994 [facility], [facility] Coronary artery disease DDD (degenerative disc disease), cervica l Endometriosis 2007 Essential hypertension 12/14/2015 GERD (gastroesophageal reflux disease) 0 03/13/2019 History of colon polyps History of gastric ulcer 12/14/2015 HLD (hyperlipidemia) Injury of left facial nerve 1994 PAD (peripheral artery disease) ([facility]) Recurrent major depression in partial re mission ([facility]) 12/14/2015 S/P drug eluting coronary stent placemen [...] FACIAL NERVE DECOMPRESSION &/REPAI R Left 1989 [facility] Family Hx: FAMILY HISTORY Problem Relation Age [...] and assistance offered. -The medical conditions adve lauraely affected by cigarette use include: Lung Cancer, COPD -The patient is currently not ready to q uit. -I personally spent 5 minutes in counselor education professor ing. -The time spent in smoking c essation counseling is exclusive of any other counseling during this visit. Karly Garcia APRN.[facility] July 31, 2022 11:12 AM I spent a total of 30 minute s on the date of the service which included preparing to see the patient, fayb-bf-entz patient care, completing clinical documentation, obtaining and/or [...] in this encounter 07-26-2022 Note HNO ID: [id number] [facility] Author: YASSINE Hatch Service: Radiology Author Type: Technologist Type: Progress Notes Filed: 07/26/2022 4:25 PM Note Text: Radiology Service Progress Note PATIENT NAME: iVnce Koenig DATE OF SERVICE: July 26, 2022 [...] PERIPHERAL IV DATA: Not applicable SIGNED BY: YASSINE Hatch July 26, 2022 4:24 PM 07-24-2022 Miscellaneous Formatting of this note migh t be different from the original. [facility] Notes LM notifying patient Formatting of this [...] at be dtime. Authorizing Provider: DAT RODNEY mvlkfxqgswm-qfzpnsvvf-plylem er (TRELEGY ELLIPTA) 200-62.5-25 mcg inhalation powder [...] pcp 05/11/22. Next appt is 08/13/22 with COVERSTITCH MACHINE OPERATOR. Formatting of this note is different fro m the original. Patient has been identified by Yesname a nd date of : Requested Prescriptions Pending Prescriptions Disp Refills traZODone (DESYREL) 100 mg tablet 60 tab let 0 Sig: Take 2 tablets by mouth daily at be dtime. bbhvrpeqjgh-bcodlesha-iaotpl er (TRELEGY ELLIPTA) 200-62.5-25 mcg inhalation powder [...] migh t be different from the original. [facility] Notes Left message to advise appoi ntment with Dr Self has been moved up to August 4ht @ 10:15 in the [place] . Formatting of this note might be differe nt from the original. Patient called back in [facility] to message left for her. Informed her that she needs to complete testing first before she has appt with Dr. Self. She verbalized understanding. I informed her of when her testing is on 07/26/2022 in [facility] and rescheduled her appt with Dr. Self in [place] on 09/11/2022 since that was the soonest [...] her right leg. The soonest testing appt turk tino has available is 07/25/22. Patient is tentatively [...] the office for other appt options in [place]. documented in this encounter 07-09-2022 Note HNO ID: [id number] [facility] Author: ASHLEY Cage [place] Service: ? Author Type: Respiratory Therapist Type: [...] used for stability. 07-09-2022 Note HNO ID: [id number] [facility] Author: ASHLEY Cage [place] Service: ? Author Type: Respiratory Therapist Type: Progress Notes Filed: 07/09/2022 3:31 PM Note Text: PULM FUNCTION SMARTBLOCK: Provider: Margaret Shrestha MD Assisting Tech: ASHLEY Cage Oximetry - Ambulation: 1 07-09-2022 Procedure note Associated Order(s): OXIMETRY WITH AMBULATION [facility] Formatting of this note is different fro [...] in this encounter 07-09-2022 History of Present [facility] illness Narrative PULM FUNCTION SMARTBLOCK: Provider: Margaret Shrestha MD Assisting Tech: ASHLEY Cage Oximetry - Ambulation: 1 documented in this encounter 07-06-2022 Miscellaneous Formatting of this note migh t be different from the original. [facility] Notes Order for oximetry documented in this encounter 06-14-2022 Miscellaneous Formatting of this note is d ifferent from the original. [facility] Notes Patient has been identified by name [...] in this encounter 06-06-2022 Note HNO ID: [id number] [facility] Author: Margaret Shrestha MD [place] Service: ? Author Type: Physician Type: Progress [...] sinc e teenage, COPD, recently discharged from [facility] in [facility] where she was treated for COPD exacerbation [...] and relieved by inhalers Recent hospital admissions: [facility] in [place] Medications: Symbicort, albuterol Most recent Radiology Most [...] No significant exposure Silica: No significant exposure Lonoke: No significant exposure Mold: No significant exposure Hot tub: No significant exposure Fumes: No significant exposure Metal dust: No significant exposure Beryllium: No significant exposure Dust: No significant exposure Medications: No relevant exposure for in terstitial lung diseases PAST MEDICAL HISTORY Diagnosis Date - Acute pancreatitis 2010 Maynor Cruz - Alcohol use disorder 01/18/2016 Dr. Angie Jones, [facility] - Anxiety 12/14/2015 - Bipolar affective disorder, currently active ([facility]) 01/18/2016 Dr. Angie Jones, [facility] - Chronic bronchitis ([facility]) 07/26/2016 - Closed skull fracture ([facility]) 1994 [facility], [facility] - Coronary artery disease - DDD (degenerative disc disease), cervi peewee - Endometriosis 2007 - Essential hypertension 12/14/2015 - GERD (gastroesophageal reflux disease) 03/13/2019 - History of colon polyps - History of gastric ulcer 12/14/2015 - HLD (hyperlipidemia) - Injury of left facial nerve 1994 - PAD (peripheral artery disease) ([facility]) 09/28/2019 - Recurrent major depression in partial remission ([facility]) 12/14/2015 - S/P drug eluting coronary stent [...] FACIAL NERVE DECOMPRESSION AND/R EPAIR Left 1989 [facility] FAMILY HISTORY Problem Relation Age of Onset - Cancer Mother 50 lung cancer - Hypertension Mother - Cancer Father 50 lung cancer - Cancer Sister 61 lung cancer Social History Tobacco Use - Smoking status: Current Every Day Smok er Packs/day: 2.00 Years: 55.00 Pack years: 110.00 Types: Cigarettes (more content not included)... 06-06-2022 Note HNO ID: [id number] [facility] Author: Paco Miguel RRT [place] Service: ? Author Type: Registered Resp Therapist Type: Progress Notes Filed: 06/06/2022 9:48 AM Note Text: PULM FUNCTION SMARTBLOCK: Provider: Margaret Shrestha MD Assisting Tech: Paco Miguel RRT Spirometry w/BD: 1 DLCO: 1 06-06-2022 History of Present [facility] illness Narrative Images from the original note [...] asthma since teenage, COPD, recently discharged from [facility] where she was treated for COPD exacerbation [...] and relieved by inhalers Recent hospital admissions: [facility] in [place] Medications: Symbicort, albuterol Most recent Radiology Most [...] No significant exposure Silica: No significant exposure Lonoke: No significant exposure Mold: No significant exposure Hot tub: No significant exposure Fumes: No significant exposure Metal dust: No significant exposure Beryllium: No significant exposure Dust: No significant exposure Medications: No relevant exposure for in terstitial lung diseases PAST MEDICAL HISTORY Diagnosis Date Acute pancreatitis 2010 Maynor Cruz Alcohol use disorder 01/18/2016 [facility] Anxiety 12/14/2015 Bipolar affective disorder, currently a ctive ([facility]) 01/18/2016 [facility] Chronic bronchitis ([facility]) 07/26/2016 Closed skull fracture ([facility]) 1994 [facility], [facility] Coronary artery disease DDD (degenerative disc disease), cervic al Endometriosis 2007 Essential hypertension 12/14/2015 GERD (gastroesophageal reflux disease) 03/13/2019 History of colon polyps History of gastric ulcer 12/14/2015 HLD (hyperlipidemia) Injury of left facial nerve 1994 PAD (peripheral artery disease) ([facility]) 1 11/28/2018 Recurrent major depression in partial r emission ([facility]) 12/14/2015 S/P drug eluting coronary stent placeme [...] FACIAL NERVE DECOMPRESSION &/REPA IR Left 1989 [facility] FAMILY HISTORY Problem Relation Age of Onset [...] Take 1 tablet by mouth once daily. sbuvpwuqhgc-rcsxgkqqz-xdmbwv er (TRELEGY ELLIPTA) 200-62.5-25 mcg inhalation powder [...] 400 QTC Calculation (Bazett) 450 Calculated P Tea 82 Calculated R Tea 65 Calculated T Tea 69 Impression NORMAL SINUS RHYTHM NORMAL ECG Confirmed by AZALEA ROTH M.D. ([id number] ) on 10/23/2021 11:14:32 AM Recent Results (from the past 96414 hour (s)) ECHO Collection Time: 05/21/22 3:26 [...] cessation Has an appointment with lung cancer scre beaning We will discuss referral to pulmonary re [...] disease counseling. Margaret Shrestha MD Staff, Respiratory [place] [facility] CC: MD Zoya Jameson, Savanna Guillen, * documented in this encounter 06-06-2022 History of Present [facility] illness Narrative PULM FUNCTION SMARTBLOCK: Provider: Margaret Shrestha MD Assisting Tech: Paco Miguel RRT Spirometry w/BD: 1 DLCO: 1 documented in this encounter 06-04-2022 Miscellaneous Formatting of this note migh t be different from the original. [facility] Notes New order printed and faxed. Natalie Blackman Ma See phone note from 05/31, this was faxed and then re faxed on 06/04 Oly Smith APRN.CNP [facility], o rts she has received several orders for the Aerochamber spacer, electronically signed by Development Representative. States she cannot accept this. Needs an actual prescription with name, address an d signature of provider. Ple ase send actual prescription. Fax number [phone]. documented in this encounter 06-01-2022 Miscellaneous Formatting of this note migh t be different from the original. [facility] Notes Order faxed - patient notified, verbaliz ed understanding. Natalie Blackman Ma She has an appointment with pulmonary medicine on 06/06, she can discuss portable oxygen tank orders at that time. Please fax prescription for spacer Oly Smith APRN.LINDA Patient calls and is asking about a spacer for her inhalers. Patient asking if prescription can be sent for inhaler spacer? Pharmacy is [facility]. See Message below in regards to portable oxygen tank. Please review and advise, Christina Pete RN Patient calls and is asking if provider can write orders for patient to have a smaller portable oxygen tank so it is easier for her to go places. She gets current supplies from [facility]. Please review and advise, Christina Pete, RN documented in this encounter 05-30-2022 Miscellaneous Addended by: SAVANNA KENNY on: 05/30/2022 09:06 AM [facility] Notes Modules accepted: Orders documented in this encounter 05-29-2022 Miscellaneous Formatting of this note is d ifferent from the original. [facility] Notes Patient's request for medication is as [...] migh t be different from the original. [facility] Notes Detailed message left for patient. The following approved medic ation requests have been transmitted electronically. Signed Prescriptions Disp Refills budesonide-formoterol (SYMBICORT) 160-4. 5 mcg/actuation inhaler 1 Each 0 Sig: Inhale 2 Puffs as instructed twice daily. BECKY: No Authorizing Provider: OLY SMITH APRN.RECYCLING TECHNICIAN Patient has been identified by name and date of : Yes Pending Prescriptions Disp Refills SYMBICORT 160 MCG-4.5 MCG/ACTUATION HFA AEROSOL INHALER Sig: Inhale 2 Puffs as instructed twice daily. BECKY: Yes RX INSTRUCTIONS: Patient requesting a call wh en RX is approved and sent to the pharmacy. Please call patient at: [phone]. Telma Greco Pss documented in this encounter 05-24-2022 Miscellaneous Formatting of this note migh t be different from the original. [facility] Notes Patient returned call and wa s notified. Attempted to call pt. No ans wer. Left message for pt. to return call. Please advise of below and close encounter when pt calls back. Thank you. Shanelle Toribio RN ----- Message from Tracy Ramires APRN.RECYCLING TECHNICIAN sent at 05/22/2022 7:41 AM EDT ----- Please call patient and noti fy her echocardiogram reveals stable LV function and no significant valve disease. Thank you! doc umented in this encounter 05-22-2022 Miscellaneous Formatting of this note migh t be different from the original. [facility] Notes Please call patient and noti fy her echocardiogram reveals stable LV function and no significant valve disease. Thank you! documented in this encounter 05-11-2022 Note HNO ID: [id number] [facility] Author: Ulises Hermosillo MD [place] Service: ? Author Type: Physician Type: Progress Notes Filed: 05/11/2022 3:49 PM Note Text: This note was created using NoteWriter. Subjective Patient presents with: Hospital Follow Up Vince Koeing is a 66 year old femal e. [...] Recurrent Major Depression in Partial Re mission ([facility]) Bipolar Affective Disorder, Currently Ac tive ([facility]) History of Alcohol Abuse Chronic bronchitis ([facility]) Spinal Stenosis, Lumbar Region Without N eurogenic Claudication Radiculopathy, Lumbar Region Smoker Gerd (Gastroesophageal Reflux Disease) Seasonal Allergies Pad (Peripheral Artery Disease) ([facility]) Anxiety and Depression Prediabetes Chest Pain Other Chest Pain Stenosis of Carotid Artery Mixed Hyperlipidemia Abnormal Stress Test Dyspnea On Exertion Coronary Artery Disease Involving [place] Coronary Artery of [place] Heart Without Angina Pectoris Social History Tobacco Use - Smoking status: Current Every Day Smok er Packs/day: 2.00 Years: 54.00 Pack years: 108.00 [...] e pisode mixed, current episode severity unspecified (HCC) - ICD9: 296.6 0, ICD10: F31.60 Stable. 6. PAD (peripheral artery di sease) ([facility]) - ICD9: 443 (more content not included)... 05-11-2022 Instructions Ulises Hermosillo MD - 11/2021 2:14 PM EDT [facility] FASTING BLOOD WORK IN 3 [facility]. documented in this encounter 05-11-2022 History of Present [facility] illness Narrative This note was created using [employer]. Subjective Patient presents with: Hospital Follow Up [...] Recurrent Major Depression in Partial Re mission ([facility]) Bipolar Affective Disorder, Currently Ac tive ([facility]) History of Alcohol Abuse Chronic bronchitis ([facility]) Spinal Stenosis, Lumbar Region Without N eurogenic Claudication Radiculopathy, Lumbar Region Smoker Gerd (Gastroesophageal Reflux Disease) Seasonal Allergies Pad (Peripheral Artery Disease) ([facility]) Anxiety and Depression Prediabetes Chest Pain Other Chest Pain Stenosis of Carotid Artery Mixed Hyperlipidemia Abnormal Stress Test Dyspnea On Exertion Coronary Artery Disease Invo lving [place] Coronary Artery of [place] Heart Without Angina Pectoris Social History Tobacco [...] Chronic bronchitis, unspe cified chronic bronchitis type ([facility]) - ICD9: 491.9, ICD10: J42 (primary diagnosis) Hypoxemia? Home Oxygen? Keep pulmonary f ollow up as scheduled. 2. Recurrent major depressio n in partial remission ([facility]) - ICD9: 296.35, ICD10: F33.41 Stable. Continue medication. Call for re fill. 3. Gastroesophageal reflux d isease, unspecified whether esophagitis present - ICD9: 530.81, ICD10: K21.9 Controlled. - OMEPRAZOLE 40 MG CAPSULE,DELAYED RELEA SE 4. Need for vaccination - ICD9: V05.9, I CD10: Z23 - PNEUMOCOCCAL VACCINE (PREVNAR 20) 5. Bipolar affective disorde r, current episode mixed, current episode severity unspecified ([facility]) - ICD9: 296.60, ICD10: F31.60 Stable. 6. PAD (peripheral artery disease) ([facility]) - ICD9: 443.9, ICD10: I73.9 - PVR LEG SHER[facility] - CONSULT TO VASCULAR SURGERY - CBC - COMP METABOLIC PANEL - LIPID PANEL BASIC Ulises Hermosillo MD documented in this encounter 05-07-2022 Miscellaneous Formatting of this note is d ifferent from the original. [facility] Notes MURTAZA: 10/19/2021 Last refill: 11/21/2021 QTY: [...] Obstructive Pulmonary Disease Chronic Obstructive Pulmonary Disease [facility] instructions Chronic obstructive pulmonar y disease (COPD) [...] Follow these instructions at home: Medicines Take ajjy-fof-rnuyiaz and p rescription medicines (inhaled or pills) [...] with your health care provider. Document Released: Document Revised: 10/10/2018 Document Reviewed: 12/02/2017 [employer] Patient Education 2020 [employer]. Follow Up Care 05/02/2022 09:30:28 With:[facility] Address: When: Unknown Comments:[facility] will provide your home oxygen and equipment. Call them when you arrive home and they will deliver your oxygen concentrator to you. Their number is [phone]. With:ULISES HERMOSILLO MD Address: [facility] [place] [address]- When:05/11/2022 13:40:00 Comments:The appointment on 05/07 has [...] confirmed cardiac medications in addition to Plavix. [facility] 06-22-2022 SARS-CoV-2 (COVID-19) RNA IVANA+probe Ql (Nph) Negative (05/02/22 4:25 AM)AO Auto Urine [id number] NoteHNO ID: [id number] Author: Tracy Ramires APRN.RECYCLING TECHNICIAN Service: ? Author Type: Nurse Practitioner Type: [...] HISTORY Diagnosis Date - Acute pancreatitis 2010 Maynor Cruz - Alcohol use disorder 01/18/2016 Dr. Angie Jones, [facility] - Anxiety 12/14/2015 - Bipolar affective disorder, currently active ([facility]) 01/18/2016 [facility] - Chronic bronchitis (HCC) 07/26/2016 - Closed skull fracture ([facility]) 1994 [facility], [facility] - Coronary artery disease - DDD (degenerative disc disease), cervical - Endometriosis 2007 - Essential hypertension 12/14/2015 - GERD (gastroesophageal reflux disease) 03/13/2019 - History of colon polyps - History of gastric ulcer 12/14/2015 - HLD (hyperlipidemia) - Injury of left facial nerve 1994 - PAD (peripheral artery disease) ([facility]) 09/28/2019 - Recurrent major depression in partial remission ([facility]) 12/14/2015 - S/P drug eluting coronary stent [...] TOTAL FACIAL NERVE DECOMPRESSION AND/REPAIR Left 1989 [facility] FAMILY HISTORY Problem Relation Age of Onset [...] 04/30/2022 ) 28 Patch (more content not included)...[facility]06-20-2022 InstructionsPatient InstructionsTracy Ramires APRN.RECYCLING TECHNICIAN - 04/30/2022 3:57 PM EDT Images from [...] the health of your heart. Developed by [employer]. Published by [employer]. Copyright 2014 [employer] and/or one of its subsidiaries. All rights reserved. documented in this encounterLakehealth [facility] Center06-20-2022 History of Present illness NarrativeTracy Ramires APRN.CNP [...] MEDICAL HISTORY Diagnosis Date Acute pancreatitis 2010 Maynor Cruz Alcohol use disorder 01/18/2016 [facility] Anxiety 12/14/2015 Bipolar affective disorder, currently active ([facility]) 01/18/2016 Dr. Angie Jones, [facility] Chronic bronchitis ([facility]) 07/26/2016 Closed skull fracture ([facility]) 1994 [facility], [facility] Coronary artery disease DDD (degenerative disc disease), cervical Endometriosis 2007 Essential hypertension 12/14/2015 GERD (gastroesophageal reflux disease) 03/13/2019 History of colon polyps History of gastric ulcer 12/14/2015 HLD (hyperlipidemia) Injury of left facial nerve 1994 PAD (peripheral artery disease) ([facility]) 09/28/2019 Recurrent major depression in partial remission ([facility]) 12/14/2015 S/P drug eluting coronary stent placement [...] TOTAL FACIAL NERVE DECOMPRESSION &/REPAIR Left 1989 [facility] FAMILY HISTORY Problem Relation Age of Onset [...] mL injection (DEFINITY) INTRAVENOUS DIRECTED PRN Tracy Ramires APRN.RECYCLING TECHNICIAN sodium chloride 0.9 % (flush) 10 mL (BD POSIFLUSH) 10 mL INTRAVENOUS DIRECTED PRN Tracy Ramires, BULB BRANDER.RECYCLING TECHNICIAN perflutren lipid microspheres 1.3 mL in NaCl (PF) 0.9% 10 mL injection (DEFINITY) INTRAVENOUS DIRECTED PRN Tracy Ramires, BULB BRANDER.RECYCLING TECHNICIAN sodium chloride 0.9 % (flush) 10 mL (BD POSIFLUSH) 10 mL INTRAVENOUS DIRECTED PRN Tracy Ramires APRN.RECYCLING TECHNICIAN Review of Systems Constitutional: Negative for chills, [...] LAD portion of the stent 3.7mm, with catholic of blood flow, no residual stenosis. Assessment [...] from today Electronically signed by Tracy Ramires APRN.CNP on April 30, 2022, 3:36 PM documented in this encounterLakehealth [facility] Center05-24-2022 Miscellaneous Notes Telephone Encounter - Jasmine Ramos LPN - 04/03/2022 10:00 AM EDT Last see pcp COVERSTITCH MACHINE OPERATOR 02/14/21. Next appt with COVERSTITCH MACHINE OPERATOR 05/04/22. elephone Encounter - Cailin Austin - 04/03/2022 9:48 AM EDT Patient has been identified by name and date of : Yes Pending Prescriptions Disp Refills ALBUTEROL SULFATE HFA 90 MCG/ACTUATION AEROSOL INHALER 80 g 5 Sig: Inhale 2 Puffs as instructed every 6 hours as needed for wheezing/shortness of breath. BECKY: No RX INSTRUCTIONS: Patient aware RX will be sent to pharmacy. No need to notify patient. Cailin Austin documented in this encounterLakehealth [facility] Center05-03-2022 NoteHNO ID: [id number] Author: Savanna Kenny, MELISSA.RECYCLING TECHNICIAN Service: ? Author Type: Nurse Practitioner Type: [...] 50% of waking hrs. Modified Medical Research [place] Dyspnea Scale (MMRC) On level ground I [...] HISTORY Diagnosis Date - Acute pancreatitis 2010 Maynor Cruz - Alcohol use disorder 01/18/2016 Dr. Angie Jones, [facility] - Anxiety 12/14/2015 - Bipolar affective disorder, currently active ([facility]) 01/18/2016 Dr. Angie Jones, [facility] - Chronic bronchitis ([facility]) 07/26/2016 - Closed skull fracture ([facility]) 1994 [facility] - Coronary artery disease - DDD (degenerative disc disease), cervical - Endometriosis 2007 - Essential hypertension 12/14/2015 - GERD (gastroesophageal reflux disease) 03/13/2019 - History of colon polyps - History of gastric ulcer 12/14/2015 - HLD (hyperlipidemia) - Injury of left facial nerve 1994 - PAD (peripheral artery disease) ([facility]) 09/28/2019 - Recurrent major depression in partial remission ([facility]) 12/14/2015 - S/P drug eluting coronary stent [...] TOTAL FACIAL NERVE DECOMPRESSION AND/REPAIR Left 1989 [facility] FAMILY HISTORY Problem Relation Age of Onset [...] and gum as needed. (more content not included)...[facility]05-03-2022 InstructionsPatient InstructionsSavanna Kenny APRN.RECYCLING TECHNICIAN - 03/13/2022 2:44 PM EDT Cigarette Logs [...] candy are also excellent oral substitutes. Phone [phone] ([phone]) as additional resource. CT Lung Screen Results [...] to endocrinology. Others Lung Cancer Screening hotline: [phone] Lung Cancer Screening [phone] Billing Questions: or [email or web address] Lung Cancer Screening Team: Linda Meyer CNP; Crystal Kenny CNP; Eri Cheung CNP; Agata Cruz CNP, JAYMIE SrivastavaC: [phone] Bouchra Cuenca PA-C documented in this encounterLakehealth Beachwood Medical Center05-03-2022 History of Present illness Dalton Kenny APRN.CNP - 03/13/2022 2:10 PM EDT Images from [...] 50% of waking hrs. Modified Medical Research [place] Dyspnea Scale (MMRC) On level ground I [...] MEDICAL HISTORY Diagnosis Date Acute pancreatitis 2010 Maynor Cruz Alcohol use disorder 01/18/2016 [facility] Anxiety 12/14/2015 Bipolar affective disorder, currently active ([facility]) 01/18/2016 [facility]ie [facility] Chronic bronchitis ([facility]) 07/26/2016 Closed skull fracture ([facility]) 1994 [facility], [facility] Coronary artery disease DDD (degenerative disc disease), cervical Endometriosis 2007 Essential hypertension 12/14/2015 GERD (gastroesophageal reflux disease) 03/13/2019 History of colon polyps History of gastric ulcer 12/14/2015 HLD (hyperlipidemia) Injury of left facial nerve 1994 PAD (peripheral artery disease) ([facility]) 09/28/2019 Recurrent major depression in partial remission ([facility]) 12/14/2015 S/P drug eluting coronary stent placement [...] TOTAL FACIAL NERVE DECOMPRESSION &/REPAIR Left 1989 [facility] FAMILY HISTORY Problem Relation Age of Onset [...] Date(s) Administered COVID-19 vaccine, age 12+ yr ([employer] - SIGALA TOP) 11/21/2021 Influenza Seasonal Inj Quad Age 6 Mo - 64 Yrs 01/06/2020 Pneumovax 04/21/2018 influenza, high-dose, quadrivalent vaccine (FLUZONE HIGH DOSE QUADRIVALENT) 08/23/2020 Colonoscopy: 04/03/2017 Mammogram: DATA REVIEW I have directly visualized the testing documented: Prior Imaging: CT: Yes 2020 Abnormal Done at [facility] 01/2021 CXR: Yes 2020 Abnormal Nonspecific prominence of bronchovascular markings [...] risk for lung cancer: 23.1 % Source: [employer] https://c-crowd.Aviasales/Ukrainian/result/female_[email or web address]_yes_unknown_66_108 http://www.[employer]iasales/tiny/oa8j0 I have determined that the patient is [...] candy are also excellent oral substitutes. Phone [phone] ([phone]) as additional resource. The medical conditions adversely [...] which included preparing to see the patient, tafz-ox-meui patient care, completing clinical documentation, obtaining and/or reviewing separatelyobtained history, performing a medically appropriate examination, counseling and educating the patien t/family/caregiver, ordering medications, tests, or procedures and communicating results to the patient/family/caregiver. Savanna Kenny APRN.LINDA NPI #: March 13, 2022 2:10 PM documented in this encounterLakehealth Beachwood Medical Center04-21-2022 Miscellaneous NotesTelephone Encounter - Joyce Woody APRN.ROSMERY - 03/01/2022 3:53 PM EDT please schedule [...] notify patient. Isadora Guillene [facility]21 NoteHNO ID: [id number] Author: RT Hiral(R) Service: Radiology Author Type: [...] PERIPHERAL IV DATA: Not applicable SIGNED BY: RT Hiral(R) October 10, 2021 11:15 AMSycamore Medical [id number] NoteHNO ID: [id number] Author: Tracy Ramires APRN.RECYCLING TECHNICIAN Service: ? Author Type: Nurse Practitioner Type: [...] seen by myself on 06/12/2021 at our [place] office. Stress testing was done d/t symptoms and need for cardiac clearance. TID ratio was elevated so she was recommended a LH and ultimately had PCI of the LAD/D1 [...] HISTORY Diagnosis Date - Acute pancreatitis 2010 Maynor Cruz - Alcohol use disorder 01/18/2016 Dr. Angie Jones, [facility] - Anxiety 12/14/2015 - Bipolar affective disorder, currently active ([facility]) 01/18/2016 Dr. Angie Jones, [facility] - Chronic bronchitis ([facility]) 07/26/2016 - Closed skull fracture ([facility]) 1994 [facility], [facility] - Coronary artery disease - DDD (degenerative disc disease), cervical - Endometriosis 2007 - Essential hypertension 12/14/2015 - GERD (gastroesophageal reflux disease) 03/13/2019 - History of colon polyps - History of gastric ulcer 12/14/2015 - HLD (hyperlipidemia) - Injury of left facial nerve 1994 - PAD (peripheral artery disease) ([facility]) 09/28/2019 - Recurrent major depression in partial remission ([facility]) 12/14/2015 - S/P drug eluting coronary stent placement 08/25/2021 LAD and Dg2 - Spinal stenosis PAST SURGICAL HISTORY Procedure Laterality Date - APPENDECTOMY 1979 - COLONOSCOP W/ OR W/O [facility] SPEC 2010 Colonoscopy - COLONOSCOPY 04/03/2017 diverticulosis- repeat 10 years - DECOMPRESS FACIAL NERVE,TOTAL Left 1989 [facility] - EGD 04/03/2017 Gastritis, duodenitis, GERD with [...] tablet 0 - camron (more content not included)...[facility]10-04-2021 Note HNO ID: [id number] Author: MAISHA Alicea Service: Radiology Author Type: Clinical Nurse Care Manager Type: Progress Notes Filed: 08/14/2021 4:04 PM [...] STATUS: Discontinued PROCEDURE TYPE: NM Stress: 12.6mCi [id number] was administered IV for Rest Imaging at 13:45 by MAISHA Alicea. 30.5 mCi [id number] was administered IV for Stress Imaging at 15:40 by MAISHA Alicea. PATIENT DISCHARGED TO: Ambulatory patient, left [place] department area. A Diagnostic radioactive procedure has taken place, with no further precautions necessary other than routine body substance precautions. More information regarding radiation safety can be found using this link: [email or web address] SIGNATURE: MAISHA Alicea PATIENT NAME: Vince Koenig DATE: August 14, 2021 TIME: 4:03 PM PAGER/CONTACT #:[facility] [id number] History of Past illness Narrative Problem Noted Date Resolved Date Asthma 07/07/2020 07/07/2020 Hypomagnesemia 10/22/2019 10/23/2019 Last Assessment & Plan: Replete mag today Preop cardiovascular exam 09/28/2019 10/06/2019 Precordial pain, short lived, 3-5 minutes, nonexertional, no 09/28/2019 07/07/2020 evidence of stress-induced ischemia on dobutamine echo in [facility] 2018. Last Assessment & Plan: Assessment: Cardiac [...] The patient has not had a prior [facility] ocardiographic exam for comparison. History of total right hip arthroplasty 03/25/2019 07/07/2020 Primary osteoarthritis of right hip 03/13/201909/12 Hyperkalemia 07/27/2016 11/27/2018 Polycythemia 07/27/2016 11/27/2018 Overview: recheck Anxiety 12/14/2015 01/06/2021 documented as of this encounter (statuses as of 03/01/2022)[facility] History of Past illness Narrative Problem Noted Date Resolved Date Asthma 07/07/2020 07/07/2020 Hypomagnesemia 10/22/2019 10/23/2019 Last Assessment & Plan: Replete mag today Preop cardiovascular exam 09/28/2019 10/06/2019 Precordial pain, short lived, 3-5 minutes, nonexertional, no 09/28/2019 07/07/2020 evidence of stress-induced ischemia on dobutamine echo in [facility] 2018. Last Assessment & Plan: Assessment: Cardiac [...] as of this encounter (statuses as of 03/13/2022)[facility] 07[facility] History of Past illness Narrative Problem Noted Date Resolved Date Asthma 07/07/2020 07/07/2020 Hypomagnesemia 10/22/2019 10/23/2019 Last Assessment & Plan: Replete mag today Preop cardiovascular exam 09/28/2019 10/06/2019 Precordial pain, short lived, 3-5 minutes, nonexertional, no 09/28/2019 07/07/2020 evidence of stress-induced ischemia on dobutamine echo in [facility] 2019. Last Assessment & Plan: Assessment: Cardiac [...] as of this encounter (statuses as of 03/23/2022)[facility] 07-07[facility] History of Past illness Narrative Problem Noted Date Resolved Date Asthma 07/07/2020 07/07/2020 Hypomagnesemia 10/22/2019 10/23/2019 Last Assessment & Plan: Replete mag today Preop cardiovascular exam 09/28/2019 10/06/2019 Precordial pain, short lived, 3-5 minutes, nonexertional, no 09/28/2019 07/07/2020 evidence of stress-induced ischemia on dobutamine echo in [facility] 2018. Last Assessment & Plan: Assessment: Cardiac [...] as of this encounter (statuses as of 04/03/2022)[facility] 07-07-[facility] History of Past illness Narrative Problem Noted Date Resolved Date Asthma 07/07/2020 07/07/2020 Hypomagnesemia 10/22/2019 10/23/2019 Last Assessment & Plan: Replete mag today Preop cardiovascular exam 09/28/2019 10/06/2019 Precordial pain, short lived, 3-5 minutes, nonexertional, no 09/28/2019 07/07/2020 evidence of stress-induced ischemia on dobutamine echo in [facility] 2018. Last Assessment & Plan: Assessment: Cardiac [...] as of this encounter (statuses as of 05/03/2022)[facility] 07-07-[facility] History of Past illness Narrative Problem Noted Date Resolved Date Asthma 07/07/2020 07/07/2020 Hypomagnesemia 10/22/2019 10/23/2019 Last Assessment & Plan: Replete mag today Preop cardiovascular exam 09/28/2019 10/06/2019 Precordial pain, short lived, 3-5 minutes, nonexertional, no 09/28/2019 07/07/2020 evidence of stress-induced ischemia on dobutamine echo in [facility] 2018. Last Assessment & Plan: Assessment: Cardiac [...] as of this encounter (statuses as of 05/07/2022)[facility] 07-07[facility] History of Past illness Narrative Problem Noted Date Resolved Date Asthma 07/07/2020 07/07/2020 Hypomagnesemia 10/22/2019 10/23/2019 Last Assessment & Plan: Replete [facility] today Preop cardiovascular exam 09/28/2019 10/06/2019 Precordial pain, short lived, 3-5 minutes, nonexertional, no 09/28/2019 07/07/2020 evidence of stress-induced ischemia on dobutamine echo in [facility] 2018. Last Assessment & Plan: Assessment: Cardiac [...] as of this encounter (statuses as of 05/11/2022)[facility] 07-07-[facility] History of Past illness Narrative Problem Noted Date Resolved Date Asthma 07/07/2020 07/07/2020 Hypomagnesemia 10/22/2019 10/23/2019 Last Assessment & Plan: Replete mag today Preop cardiovascular exam 09/28/2019 10/06/2019 Precordial pain, short lived, 3-5 minutes, nonexertional, no 09/28/2019 07/07/2020 evidence of stress-induced ischemia on dobutamine echo in [facility] 2018. Last Assessment & Plan: Assessment: Cardiac [...] as of this encounter (statuses as of 05/23/2022)[facility] 07-07-[facility] History of Past illness Narrative Problem Noted Date Resolved Date Asthma 07/07/2020 07/07/2020 Hypomagnesemia 10/22/2019 10/23/2019 Last Assessment & Plan: Replete mag today Preop cardiovascular exam 09/28/2019 10/06/2019 Precordial pain, short lived, 3-5 minutes, nonexertional, no 09/28/2019 07/07/2020 evidence of stress-induced ischemia on dobutamine echo in [facility] 2018. Last Assessment & Plan: Assessment: Cardiac [...] as of this encounter (statuses as of 05/24/2022)[facility] 07-07-[facility] History of Past illness Narrative Problem Noted Date Resolved Date Asthma 07/07/2020 07/07/2020 Hypomagnesemia 10/22/2019 10/23/2019 Last Assessment & Plan: Replete mag today Preop cardiovascular exam 09/28/2019 10/06/2019 Precordial pain, short lived, 3-5 minutes, nonexertional, no 09/28/2019 07/07/2020 evidence of stress-induced ischemia on dobutamine echo in [facility] 2018. Last Assessment & Plan: Assessment: Cardiac [...] as of this encounter (statuses as of 05/25/2022)[facility] 07-07-[facility] History of Past illness Narrative Problem Noted Date Resolved Date Asthma 07/07/2020 07/07/2020 Hypomagnesemia 10/22/2019 10/23/2019 Last Assessment & Plan: Replete mag today Preop cardiovascular exam 09/28/2019 10/06/2019 Precordial pain, short lived, 3-5 minutes, nonexertional, no 09/28/2019 07/07/2020 evidence of stress-induced ischemia on dobutamine echo in [facility] 2018. Last Assessment & Plan: Assessment: Cardiac [...] The patient has not had a prior [facility] ocardiographic exam for comparison. History of total right hip arthroplasty 03/25/2019 07/07/2020 Primary osteoarthritis of right hip 03/13/201909/12 Hyperkalemia 07/27/2016 11/27/2018 Polycythemia 07/27/2016 11/27/2018 Overview: recheck Anxiety 12/14/2015 01/06/2021 documented as of this encounter (statuses as of 05/29/2022)[facility] History of Past illness Narrative Problem Noted Date Resolved Date Asthma 07/07/2020 07/07/2020 Hypomagnesemia 10/22/2019 10/23/2019 Last Assessment & Plan: Replete mag today Preop cardiovascular exam 09/28/2019 10/06/2019 Precordial pain, short lived, 3-5 minutes, nonexertional, no 09/28/2019 07/07/2020 evidence of stress-induced ischemia on dobutamine echo in [facility] 2018. Last Assessment & Plan: Assessment: Cardiac [...] The patient has not had a prior [facility] ocardiographic exam for comparison. History of total right hip arthroplasty 03/25/2019 07/07/2020 Primary osteoarthritis of right hip 03/13/201909/12 Hyperkalemia 07/27/2016 11/27/2018 Polycythemia 07/27/2016 11/27/2018 Overview: recheck Anxiety 12/14/2015 01/06/2021 documented as of this encounter (statuses as of 05/30/2022)[facility] History of Past illness Narrative Problem Noted Date Resolved Date Asthma 07/07/2020 07/07/2020 Hypomagnesemia 10/22/2019 10/23/2019 Last Assessment & Plan: Replete mag today Preop cardiovascular exam 09/28/2019 10/06/2019 Precordial pain, short lived, 3-5 minutes, nonexertional, no 09/28/2019 07/07/2020 evidence of stress-induced ischemia on dobutamine echo in [facility] 2018. Last Assessment & Plan: Assessment: Cardiac [...] as of this encounter (statuses as of 05/30/2022)[facility] 07-07-2020 History of Past illness Narrative Problem Noted Date Resolved Date Asthma 07/07/2020 07/07/2020 Hypomagnesemia 10/22/2019 10/23/2019 Last Assessment & Plan: Replete mag today Preop cardiovascular exam 09/28/2019 10/06/2019 Precordial pain, short lived, 3-5 minutes, nonexertional, no 09/28/2019 07/07/2020 evidence of stress-induced ischemia on dobutamine echo in [facility] 2018. Last Assessment & Plan: Assessment: Cardiac [...] as of this encounter (statuses as of 06/01/2022)[facility] 07-07-[facility] History of Past illness Narrative Problem Noted Date Resolved Date Asthma 07/07/2020 07/07/2020 Hypomagnesemia 10/22/2019 10/23/2019 Last Assessment & Plan: Replete mag today Preop cardiovascular exam 09/28/2019 10/06/2019 Precordial pain, short lived, 3-5 minutes, nonexertional, no 09/28/2019 07/07/2020 evidence of stress-induced ischemia on dobutamine echo in [facility] 2018. Last Assessment & Plan: Assessment: Cardiac [...] patient has not had a prior [facility] ocardiographic exam for comparison. History of total right hip arthroplasty 03/25/2019 07/07/2020 Primary osteoarthritis of right hip 03/13/201909/12 Hyperkalemia 07/27/2016 11/27/2018 Polycythemia 07/27/2016 11/27/2018 Overview: recheck Anxiety 12/14/2015 01/06/2021 documented as of this encounter (statuses as of 06/04/2022)[facility] 07-07-[facility] History of Past illness Narrative Problem Noted Date Resolved Date Asthma 07/07/2020 07/07/2020 Hypomagnesemia 10/22/2019 10/23/2019 Last Assessment & Plan: Replete mag today Preop cardiovascular exam 09/28/2019 10/06/2019 Precordial pain, short lived, 3-5 minutes, nonexertional, no 09/28/2019 07/07/2020 evidence of stress-induced ischemia on dobutamine echo in [facility] 2018. Last Assessment & Plan: Assessment: Cardiac [...] as of this encounter (statuses as of 06/06/2022)[facility] 07-07-2020 History of Past illness Narrative Problem Noted Date Resolved Date Asthma 07/07/2020 07/07/2020 Hypomagnesemia 10/22/2019 10/23/2019 Last Assessment & Plan: Replete mag today Preop cardiovascular exam 09/28/2019 10/06/2019 Precordial pain, short lived, 3-5 minutes, nonexertional, no 09/28/2019 07/07/2020 evidence of stress-induced ischemia on dobutamine echo in [facility] 2018. Last Assessment & Plan: Assessment: Cardiac [...] as of this encounter (statuses as of 06/06/2022)[facility] 07-07-2020 History of Past illness Narrative Problem Noted Date Resolved Date Asthma 07/07/2020 07/07/2020 Hypomagnesemia 10/22/2019 10/23/2019 Last Assessment & Plan: Replete mag today Preop cardiovascular exam 09/28/2019 10/06/2019 Precordial pain, short lived, 3-5 minutes, nonexertional, no 09/28/2019 07/07/2020 evidence of stress-induced ischemia on dobutamine echo in [facility] 2018. Last Assessment & Plan: Assessment: Cardiac [...] as of this encounter (statuses as of 06/15/2022)[facility] 07-07-2020 History of Past illness Narrative Problem Noted Date Resolved Date Asthma 07/07/2020 07/07/2020 Hypomagnesemia 10/22/2019 10/23/2019 Last Assessment & Plan:Formatting of jaswinder walden note might be different from the original. Replete mag today Preop cardiovascular exam 09/28/2019 10/06/2019 Precordial pain, short lived, 3-5 minutes, nonexertional, no 09/28/2019 07/07/2020 evidence of stress-induced ischemia on dobutamine echo in [facility] 2018. Last Assessment & Plan:Formatting of jaswinder [...] as of this encounter (statuses as of 07/06/2022)[facility] 07-07-2020 History of Past illness Narrative Problem Noted Date Resolved Date Asthma 07/07/2020 07/07/2020 Hypomagnesemia 10/22/2019 10/23/2019 Last Assessment & Plan:Formatting of jaswinder s note might be different from the original. Replete mag today Preop cardiovascular exam 09/28/2019 10/06/2019 Precordial pain, short lived, 3-5 minutes, nonexertional, no 09/28/2019 07/07/2020 evidence of stress-induced ischemia on dobutamine echo in [facility] 2018. Last Assessment & Plan:Formatting of jaswinder [...] as of this encounter (statuses as of 07/09/2022)[facility] 07-07-2020 History of Past illness Narrative Problem Noted Date Resolved Date Asthma 07/07/2020 07/07/2020 Hypomagnesemia 10/22/2019 10/23/2019 Last Assessment & Plan:Formatting of jaswinder s note might be different from the original. Replete mag today Preop cardiovascular exam 09/28/2019 10/06/2019 Precordial pain, short lived, 3-5 minutes, nonexertional, no 09/28/2019 07/07/2020 evidence of stress-induced ischemia on dobutamine echo in [facility] 2018. Last Assessment & Plan:Formatting of jaswinder [...] as of this encounter (statuses as of 07/18/2022)[facility] 07-07-2020 History of Past illness Narrative Problem Noted Date Resolved Date Asthma 07/07/2020 07/07/2020 Hypomagnesemia 10/22/2019 10/23/2019 Last Assessment & Plan:Formatting of jaswinder s note might be different from the original. Replete mag today Preop cardiovascular exam 09/28/2019 10/06/2019 Precordial pain, short lived, 3-5 minutes, nonexertional, no 09/28/2019 07/07/2020 evidence of stress-induced ischemia on dobutamine echo in [facility] 2018. Last Assessment & Plan:Formatting of jaswinder [...] as of this encounter (statuses as of 07/24/2022)[facility] 07-07-2020 History of Past illness Narrative Problem Noted Date Resolved Date Asthma 07/07/2020 07/07/2020 Hypomagnesemia 10/22/2019 10/23/2019 Last Assessment & Plan:Formatting of jaswinder walden note might be different from the original. Replete mag today Preop cardiovascular exam 09/28/2019 10/06/2019 Precordial pain, short lived, 3-5 minutes, nonexertional, no 09/28/2019 07/07/2020 evidence of stress-induced ischemia on dobutamine echo in [facility] 2018. Last Assessment & Plan:Formatting of jaswinder [...] The patient has not had a prior [facility] ocardiographic exam for comparison. History of total right hip arthroplasty 03/25/2019 07/07/2020 Primary osteoarthritis of right hip 03/13/201909/12 Hyperkalemia 07/27/2016 11/27/2018 Polycythemia 07/27/2016 11/27/2018 Overview:Formatting of this note might b e different from the original. recheck Anxiety 12/14/2015 01/06/2021 documented as of this encounter (statuses as of 07/31/2022)[facility] 07-07-2020 History of Past illness Narrative Problem Noted Date Resolved Date Asthma 07/07/2020 07/07/2020 Hypomagnesemia 10/22/2019 10/23/2019 Last Assessment & Plan:Formatting of jaswinder s note might be different from the original. Replete mag today Preop cardiovascular exam 09/28/2019 10/06/2019 Precordial pain, short lived, 3-5 minutes, nonexertional, no 09/28/2019 07/07/2020 evidence of stress-induced ischemia on dobutamine echo in [facility] 2018. Last Assessment & Plan:Formatting of jaswinder [...] as of this encounter (statuses as of 08/10/2022)[facility] 07-07-2020 History of Past illness Narrative Problem Noted Date Resolved Date Asthma 07/07/2020 07/07/2020 Hypomagnesemia 10/22/2019 10/23/2019 Last Assessment & Plan:Formatting of jaswinder s note might be different from the original. Replete mag today Preop cardiovascular exam 09/28/2019 10/06/2019 Precordial pain, short lived, 3-5 minutes, nonexertional, no 09/28/2019 07/07/2020 evidence of stress-induced ischemia on dobutamine echo in [facility] 2018. Last Assessment & Plan:Formatting of jaswinder [...] as of this encounter (statuses as of 08/16/2022)[facility] 07-07-2020 History of Past illness Narrative Problem Noted Date Resolved Date Asthma 07/07/2020 07/07/2020 Hypomagnesemia 10/22/2019 10/23/2019 Last Assessment & Plan:Formatting of jaswinder s note might be different from the original. Replete mag today Preop cardiovascular exam 09/28/2019 10/06/2019 Precordial pain, short lived, 3-5 minutes, nonexertional, no 09/28/2019 07/07/2020 evidence of stress-induced ischemia on dobutamine echo in [facility] 2018. Last Assessment & Plan:Formatting of jaswinder [...] The patient has not had a prior [facility] ocardiographic exam for comparison. History of total right hip arthroplasty 03/25/2019 07/07/2020 Primary osteoarthritis of right hip 03/13/201909/12 Hyperkalemia 07/27/2016 11/27/2018 Polycythemia 07/27/2016 11/27/2018 Overview:Formatting of this note might b e different from the original. recheck Anxiety 12/14/2015 01/06/2021 documented as of this encounter (statuses as of 08/31/2022)[facility] 07-07-2020 History of Past illness Narrative Problem Noted Date Resolved Date Asthma 07/07/2020 07/07/2020 Hypomagnesemia 10/22/2019 10/23/2019 Last Assessment & Plan:Formatting of jaswinder walden note might be different from the original. Replete mag today Preop cardiovascular exam 09/28/2019 10/06/2019 Precordial pain, short lived, 3-5 minutes, nonexertional, no 09/28/2019 07/07/2020 evidence of stress-induced ischemia on dobutamine echo in [facility] 2018. Last Assessment & Plan:Formatting of jaswinder [...] The patient has not had a prior [facility] ocardiographic exam for comparison. History of total right hip arthroplasty 03/25/2019 07/07/2020 Primary osteoarthritis of right hip 03/13/201909/12 Hyperkalemia 07/27/2016 11/27/2018 Polycythemia 07/27/2016 11/27/2018 Overview:Formatting of this note might b e different from the original. recheck Anxiety 12/14/2015 01/06/2021 documented as of this encounter (statuses as of 09/05/2022)[facility] 07-07-2020 History of Past illness Narrative Problem Noted Date Resolved Date Asthma 07/07/2020 07/07/2020 Hypomagnesemia 10/22/2019 10/23/2019 Last Assessment & Plan:Formatting of jaswinder s note might be different from the original. Replete mag today Preop cardiovascular exam 09/28/2019 10/06/2019 Precordial pain, short lived, 3-5 minutes, nonexertional, no 09/28/2019 07/07/2020 evidence of stress-induced ischemia on dobutamine echo in [facility] 2018. Last Assessment & Plan:Formatting of jaswinder [...] as of this encounter (statuses as of 09/06/2022)[facility] 07-07-2020 History of Past illness Narrative Problem Noted Date Resolved Date Asthma 07/07/2020 07/07/2020 Hypomagnesemia 10/22/2019 10/23/2019 Last Assessment & Plan:Formatting of jaswinder s note might be different from the original. Replete mag today Preop cardiovascular exam 09/28/2019 10/06/2019 Precordial pain, short lived, 3-5 minutes, nonexertional, no 09/28/2019 07/07/2020 evidence of stress-induced ischemia on dobutamine echo in [facility] 2018. Last Assessment & Plan:Formatting of jaswinder [...] as of this encounter (statuses as of 09/24/2022)[facility] 07-07-2020 History of Past illness Narrative Problem Noted Date Resolved Date Asthma 07/07/2020 07/07/2020 Hypomagnesemia 10/22/2019 10/23/2019 Last Assessment & Plan:Formatting of jaswinder walden note might be different from the original. Replete mag today Preop cardiovascular exam 09/28/2019 10/06/2019 Precordial pain, short lived, 3-5 minutes, nonexertional, no 09/28/2019 07/07/2020 evidence of stress-induced ischemia on dobutamine echo in [facility] 2018. Last Assessment & Plan:Formatting of jaswinder [...] The patient has not had a prior [facility] ocardiographic exam for comparison. History of total right hip arthroplasty 03/25/2019 07/07/2020 Primary osteoarthritis of right hip 03/13/201909/12 Hyperkalemia 07/27/2016 11/27/2018 Polycythemia 07/27/2016 11/27/2018 Overview:Formatting of this note might b e different from the original. recheck Anxiety 12/14/2015 01/06/2021 documented as of this encounter (statuses as of 09/30/2022)[facility] 07-07-2020 History of Past illness Narrative Problem Noted Date Resolved Date Asthma 07/07/2020 07/07/2020 Hypomagnesemia 10/22/2019 10/23/2019 Last Assessment & Plan:Formatting of jaswinder walden note might be different from the original. Replete mag today Preop cardiovascular exam 09/28/2019 10/06/2019 Precordial pain, short lived, 3-5 minutes, nonexertional, no 09/28/2019 07/07/2020 evidence of stress-induced ischemia on dobutamine echo in [facility] 2018. Last Assessment & Plan:Formatting of jaswinder [...] The patient has not had a prior [facility] ocardiographic exam for comparison. History of total right hip arthroplasty 03/25/2019 07/07/2020 Primary osteoarthritis of right hip 03/13/201909/12 Hyperkalemia 07/27/2016 11/27/2018 Polycythemia 07/27/2016 11/27/2018 Overview:Formatting of this note might b e different from the original. recheck Anxiety 12/14/2015 01/06/2021 documented as of this encounter (statuses as of 10/02/2022)[facility] 07-07-2020 History of Past illness Narrative Problem Noted Date Resolved Date Asthma 07/07/2020 07/07/2020 Hypomagnesemia 10/22/2019 10/23/2019 Last Assessment & Plan:Formatting of jaswinder s note might be different from the original. Replete mag today Preop cardiovascular exam 09/28/2019 10/06/2019 Precordial pain, short lived, 3-5 minutes, nonexertional, no 09/28/2019 07/07/2020 evidence of stress-induced ischemia on dobutamine echo in [facility] 2018. Last Assessment & Plan:Formatting of jaswinder [...] as of this encounter (statuses as of 11/26/2022)[facility] 07-07-2020 History of Past illness Narrative Problem Noted Date Resolved Date Asthma 07/07/2020 07/07/2020 Hypomagnesemia 10/22/2019 10/23/2019 Last Assessment & Plan:Formatting of jaswinder s note might be different from the original. Replete mag today Preop cardiovascular exam 09/28/2019 10/06/2019 Precordial pain, short lived, 3-5 minutes, nonexertional, no 09/28/2019 07/07/2020 evidence of stress-induced ischemia on dobutamine echo in [facility] 2018. Last Assessment & Plan:Formatting of jaswinder [...] as of this encounter (statuses as of 12/15/2022)[facility] 07-07-2020 History of Past illness Narrative Problem Noted Date Resolved Date Asthma 07/07/2020 07/07/2020 Hypomagnesemia 10/22/2019 10/23/2019 Last Assessment & Plan:Formatting of jaswinder walden note might be different from the original. Replete mag today Preop cardiovascular exam 09/28/2019 10/06/2019 Precordial pain, short lived, 3-5 minutes, nonexertional, no 09/28/2019 07/07/2020 evidence of stress-induced ischemia on dobutamine echo in [facility] 2018. Last Assessment & Plan:Formatting of jaswinder [...] The patient has not had a prior [facility] ocardiographic exam for comparison. History of total right hip arthroplasty 03/25/2019 07/07/2020 Primary osteoarthritis of right hip 03/13/201909/12 Hyperkalemia 07/27/2016 11/27/2018 Polycythemia 07/27/2016 11/27/2018 Overview:Formatting of this note might b e different from the original. recheck Anxiety 12/14/2015 01/06/2021 documented as of this encounter (statuses as of 01/01/2023)[facility] 07-07-2020 History of Past illness Narrative Problem Noted Date Resolved Date Asthma 07/07/2020 07/07/2020 Hypomagnesemia 10/22/2019 10/23/2019 Last Assessment & Plan:Formatting of jaswinder walden note might be different from the original. Replete mag today Preop cardiovascular exam 09/28/2019 10/06/2019 Precordial pain, short lived, 3-5 minutes, nonexertional, no 09/28/2019 07/07/2020 evidence of stress-induced ischemia on dobutamine echo in [facility] 2018. Last Assessment & Plan:Formatting of jaswinder [...] as of this encounter (statuses as of 01/01/2023)[facility] Evaluation + Plan noteNo data available for this sectionOhio[facility] Evaluation note Diagnosis Recurrent major depression in partial re [place] ([facility]) Major depressive disorder, recurrent epi sode, in partial or unspecified remission [facility] Diagnosis Dyspnea on exertion- Primary Other dyspnea and respiratory abnormalit y Smoker Tobacco use disorder Encounter for screening for malignant ne oplasm of lung documented [facility] encounterB[facility] Diagnosis Wheezing documented [facility] Diagnosis DIAZ (dyspnea on exertion)- Primary Other dyspnea and respiratory abnormalit y Essential hypertension Unspecified essential hypertension Coronary artery disease involving [place] coronary artery of [place] heart without angina pectoris Mixed hyperlipidemia Smoker Tobacco use disorder Stenosis of carotid artery, unspecified laterality documented in [facility] Diagnosis Recurrent major depression in partial mission ([facility]) Major depressive disorder, recurrent epi sode, in partial or unspecified remission documented in [facility] Diagnosis Chronic bronchitis, unspecified chronic bronchitis type ([facility])- Primary Recurrent major depression in [facility] ([facility]) Major depressive disorder, recurrent epi sode, in partial or unspecified remission Gastroesophageal reflux disease, unspeci fied whether esophagitis present Need for vaccination Need for prophylactic vaccination and in oculation against unspecified single disease Bipolar affective disorder, current epis ode mixed, current episode severity unspecified ([facility]) PAD (peripheral artery disease) ([facility]) Peripheral vascular disease, unspecified documented in this encounterLake[facility] CenterEvaluation note Diagnosis DIAZ (dyspnea on exertion) Other dyspnea and respiratory abnormalit y documented in [facility] Diagnosis Tobacco use disorder- Primary documented in [facility] note Diagnosis Smoker- Primary Tobacco use disorder Encounter for screening for malignant ne oplasm of lung documented in this [facility] note Diagnosis Chronic bronchitis, unspecified chronic bronchitis type ([facility])- Primary documented in [facility] Diagnosis Dyspnea on exertion Other dyspnea and respiratory abnormalit y documented in this encounterC[facility] Clinic[facility] note Diagnosis Asthma-COPD overlap syndrome ([facility])- Prim gabriel Wheezing Smoking Tobacco use disorder documented in this encounterCleC[facility] Diagnosis Recurrent major depression in partial [place] ([facility]) Major depressive disorder, recurrent epi sode, in partial or unspecified remission documented in [facility] Diagnosis SOB (shortness of breath)- Primary Shortness of breath documented in this encounterCleveland ClinicEvaluation note Diagnosis SOB (shortness of breath) Shortness of breath documented in this encounterBristol ClinicEvaluation note Diagnosis Recurrent major depression in partial re [place] (HCC) Major depressive disorder, recurrent epi sode, in partial or unspecified remission documented in this encounterBristol ClinicEvaluation note Diagnosis Lung nodules- Primary Other nonspecific abnormal finding of ilene ng field Current smoker Tobacco use disorder documented in this encounterBristol ClinicEvaluation note Diagnosis Situational anxiety- Primary Other anxiety states Allergic conjunctivitis of both eyes Other chronic allergic conjunctivitis Recurrent major depression in partial re [place] (HCC) Major depressive disorder, recurrent epi sode, in partial or unspecified remission Essential hypertension Unspecified essential hypertension Coronary artery disease involving [place] coronary artery of [place] heart without angina pectoris Chronic bronchitis, unspecified chronic bronchitis type ([facility]) Encounter for immunization Need for other specified prophylactic va ccination against single bacterial disease Mixed hyperlipidemia Lung nodule Solitary pulmonary nodule Screening for osteoporosis Special screening for osteoporosis Asymptomatic menopause documented in this encounterLake[facility] CenterEvaluation note Diagnosis Thrush (oral)- Primary Prediabetes Other abnormal glucose Essential hypertension Unspecified essential hypertension documented in this encounterBristol ClinicEvaluation note Diagnosis Peripheral arterial disease (HCC)- Prima ry Peripheral vascular disease, unspecified documented in this encounterBristol ClinicEvaluation note Diagnosis PAD (peripheral artery disease) ([facility]) Peripheral vascular disease, unspecified documented in this encounterLakehealth [facility] CenterEvaluation note Diagnosis Hemoptysis- Primary Hemoptysis, unspecified Stage 3 severe COPD by GOLD classificati on ([facility]) Cigarette smoker Tobacco use disorder documented in this encounterLakehealth [facility] CenterEvaluation note Diagnosis Alcohol withdrawal syndrome without comp lication ([facility])- Primary documented in this encounterCleTri[facility] Discharge instructionsNo data available for this [facility] Yolanda Bear RN: PERFORM Event Display: [facility] Patient Summary Authored Date: [id number] Discharge Instructions Thank you for allowing [facility] to assist you with your healthcare needs. [...] MD When Within 2-4 days Where: [address] [place], [place] [id number]- Allergies NKA Medications Please ask your primary [...] pharmacies. Medication Leaflets budesonide and formoterol (inhalation) (bue RODNEY [place] and for WADE [place]) Symbicort What is the most important information [...] may report side effects to FDA at 5-613-LAI-4380. What other drugs will affect budesonide and formoterol? Sometimes it is not safe to use certain medications at the same time. Some drugs can affect your blood levels of other drugs you take, which may increase side effects or make the medications less effective. Many drugs can affect budesonide and formoterol. This includes prescription and csso-vim-njghcuv medicines, vitamins, and herbal products. Not all [...] to ensure that the information provided by [employer]. ('[employer]') is accurate, up-to-date, and complete, but no guarantee is made to that effect. Drug information contained herein may be time sensitive. [employer] information has been compiled for use by healthcare practitioners and consumers in the [place] and therefore [employer] does not warrant that uses outside of the [place] are appropriate, unless specifically indicated otherwise. [employer]s drug information does not endorse drugs, diagnose patients or recommend therapy. [employer]s drug information is an informational resource designed [...] effective or appropriate for any given patient. [employer] does not assume any responsibility for any aspect of healthcare administered with the aid of information [employer] provides. The information contained herein is not intended to cover all possible uses, directions, precautions, warnings, drug interactions, allergic reactions, or adverse effects. If you have questions about the drugs you are taking, check with your doctor, nurse or pharmacist. Copyright 5975-7522 [employer]. Version: 9.02. Revision Date: 07/08/2019. prednisone (PRED sameer sone) Billy What is the most important information [...] may report side effects to FDA at 1-587-LOG-4520. What other drugs will affect prednisone? Sometimes [...] may affect prednisone. This includes prescription and tfxm-sme-zsjqlcp medicines, vitamins, and herbal products. Not all [...] to ensure that the information provided by [employer] ('[employer]') is accurate, up-to-date, and complete, but no guarantee is made to that effect. Drug information contained herein may be time sensitive. [employer] information has been compiled for use by healthcare practitioners and consumers in the [place] and therefore [employer] does not warrant that uses outside of the [place] are appropriate, unless specifically indicated otherwise. [employer]s drug information does not endorse drugs, diagnose patients or recommend therapy. [employer]s drug information is an informational resource designed [...] effective or appropriate for any given patient. [employer] does not assume any responsibility for any aspect of healthcare administered with the aid of information [employer] provides. The information contained herein is not intended to cover all possible uses, directions, precautions, warnings, drug interactions, allergic reactions, or adverse effects. If you have questions about the drugs you are taking, check with your doctor, nurse or pharmacist. Copyright 5047-2475 [employer]. Version: 10.. Revision Date: 02/05/2019. doxycycline (oral/injection) (DOX sandra [...] or life-threatening conditions such as anthrax or [place] spotted fever. The benefit of treating a [...] may report side effects to FDA at 4-638-ZLA-4012. What other drugs will affect doxycycline? Sometimes it is not safe to use certain medications at the same time. Some drugs can affect your blood levels of other drugs you take, which may increase side effects or make the medications less effective. Other drugs may affect doxycycline, including prescription and glng-aft-krjibvb medicines, vitamins, and herbal products. Tell your [...] to ensure that the information provided by [employer]. ('[employer]') is accurate, up-to-date, and complete, but no guarantee is made to that effect. Drug information contained herein may be time sensitive. [employer] information has been compiled for use by healthcare practitioners and consumers in the [place] and therefore [employer] does not warrant that uses outside of the [place] are appropriate, unless specifically indicated otherwise. [employer]s drug information does not endorse drugs, diagnose patients or recommend therapy. [employer]s drug information is an informational resource designed [...] effective or appropriate for any given patient. [employer] does not assume any responsibility for any aspect of healthcare administered with the aid of information [employer] provides. The information contained herein is not intended to cover all possible uses, directions, precautions, warnings, drug interactions, allergic reactions, or adverse effects. If you have questions about the drugs you are taking, check with your doctor, nurse or pharmacist. Copyright 4583-5029 [employer]. Version: .. Revision Date: 09/14/2020. Education Materials [...] your ankles gets worse Dizziness or weakness 6017-3784 [employer]. [address] [place] [address]. All rights reserved. This information is not intended as a substitute for professional medical care. Always follow your healthcare professional's instructions. Additional Information VACCINATE! IT SAVES LIVES! Members of the community who have not yet received the COVID-19 vaccine and would like to receive itcan visit one of [facility] vaccine clinics. There are many vaccine clinic locations within the [facility].For locations and available times, please visit [email or web address]. It is importantto note that some COVID mobile vaccine clinics are held outdoors and may be canceled in rainy or stormy conditions. To learn more about pediatric vaccinations (ages 5-11), we invite you to visit the [facility] webpage. [email or web address] To learn more about the COVID-19 vaccine, we invite you to visit the [facility] website for a list of frequently asked questions. [email or web address] [email or web address] [facility] OneChart Patient Portal Access Instructions: Stay connected with your healthcare team and access your personal medical information anytime with the [facility] Patient Portal. If you would like a full copy of your medical records please contact the [facility] Medical Records Department Saturday through Saturday between 8a.m. and 4:30p.m. Please follow the directions below to access the portal: 1.Access the email account you provided upon registration to the [facility].2.Look for an invitation email from [facility].3.Open the email and access the invitation link: Accept Invitation to [facility]4.Fill in the required randle to create your account. Sign into [email or web address] with your username and password that you [...] who you will allow to register onthe [facility] Patient Portal for access to your information. You can also access the [facility] [employer] Patient Portal on the [employer]. Simply click on Health Records under Health Data and then click on the [facility] logo. HOW TO SAFELY DISPOSE OF PRESCRIPTION [...] Call your local pharmacy or go to [email or web address] to find one close to you.3.Make use of household items: Use cat litter or old coffee grounds to dispose medications if other options are not available. Mix your drugs with these household products, seal them in an airtight container and throwit into the garbage. Call [facility]: [phone] to be sure your drugs can be [...] aware that I should contact my doctor. 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[employer] Signature: Date/Time: Relationship to Patient: Witness Name/Signature: Date/Time: ZINA GLOVER DO: SIGN, VERIFY Event Display: EKG [ED AOH] - CV Authored Date: [id number] [facility] Progress noteNo data available for this sectionOhiohealth [facility]in [facility] Reason for referral (narrative)Outpatient Procedure (Routine) - Authorized Specialty Diagnoses / Procedures Referred By Contact Refer red To Contact HEART AND VASCULAR Diagnoses DIAZ (dyspnea on exertion) Tracy Ramires, [facility] Procedures ECHO ECHO TTHRC R-T 2D W/WOM-MODE COMPL SPEC&COLR D [facility] [place] [address] [place] [address] [place] [address] Referral ID Status Reason Start Expiration Visits Visits Date Date Requested Authorized [id number] Authorized Auto-Generat 04/30/2022 04/30/2023 1 1 ed Referral [facility] for referral (narrative)Outpatient Procedure (Routine) - Authorized Specialty Diagnoses / Procedures Referred By Contact Refer red To Contact [facility] Diagnoses SOB (shortness of breath) Margaret Shrestha, Res[facility] [place] Procedures OXIMETRY WITH AMBULATION NONINVASIVE EAR/PULSE OXIMETRY SRIDHAR ULRICH MD [id number] [place] [address] Referral ID Status Reason Start Expiration Visits Visits Date Date Requested Authorized [id number] Authorized Auto-Generat 07/06/2022 08/05/2023 1 1 ed Referral [facility] for referral (narrative)Outpatient Procedure (Routine) - Authorized Specialty Diagnoses / Procedures Referred By Contact Refer red To Contact HEART AND VASCULAR Diagnoses Peripheral arterial disease (HCC) Tawny Self, [facility] Procedures PVR LEG SHERIN VAS LAB NON-INVASIVE PHYSIOLOGIC STUDY EXTREMITY 3 LEVLS DO [place] [address] [place] [address] [place] [address] Referral ID Status Reason Start Expiration Visits Visits Date Date Requested Authorized [id number] Authorized Auto-Generat 11/10/2022 1 1 ed Referral 2 [facility] for referral (narrative)Outpatient Procedure (Routine) - Pending Review Specialty Diagnoses / Procedures Referred By Contact Refer red To Contact HEART AND VASCULAR Diagnoses PAD (peripheral artery disease) (HCC) Tawny Self, [facility] Procedures PVR LEG SHERIN VAS LAB NON-INVASIVE PHYSIOLOGIC STUDY EXTREMITY 3 LEVLS DO [place] [address] [place] [address] [place] [address] Referral ID Status Reason Start Expiration Visits Visits Date Date Requested Authorized [id number] Pending Auto-Generat 10/02/2023 1 1 Review ed Referral 2 [facility] for visit NarrativeOutpatient Procedure (Routine) - Closed Specialty Diagnoses / Procedures Referred By Contact Refer red To Contact HEART AND VASCULAR Diagnoses DIAZ (dyspnea on exertion) Tracy Ramires, [facility] Procedures ECHO ECHO TTHRC R-T 2D W/WOM-MODE COMPL SPEC&COLR D [facility] [place] [address] [place] [address] [place] [address] Referral ID Status Reason Start Date Expiration Date Visits V isits Requested Authorized [id number] Closed Auto-Generate 04/30/2022 04/30/2023 1 1 d Referral [facility] for visit NarrativeOutpatient Procedure (Routine) - Closed Specialty Diagnoses / Procedures Referred By Contact Refer red To Contact [facility] Diagnoses SOB (shortness of breath) Margaret Shrestha, [facility] [place] Procedures OXIMETRY WITH AMBULATION NONINVASIVE EAR/PULSE OXIMETRY SRIDHAR ULRICH MD [address] [place] [address] [place] [address] Referral ID Status Reason Start Date Expiration Date Visits V isits Requested Authorized [id number] Closed Auto-Generate 07/06/2022 08/05/2023 1 1 d Referral [facility] Summary Purpose Family History No Family History Records FoundNo Family History Records FoundNo Family History Records FoundNo Family History Records FoundNo Family History Records FoundNo Family History Records Found Advance Directives No Advanced Directives Records Found Documents on File Type Date Recorded Patient [employer] Explanati on Advance Directive(s) 08/25/2021 8:30 AM Advance Directive(s) 07/27/2021 5:44 PM Advance Directive(s) 10/20/2019 11:23 AM Advance Directive(s) 10/05/2019 10:43 AM Advance Directive(s) 03/25/2019 7:55 AM Advance Directive(s) 01/06/2019 12:24 PM Advance Directive(s) 03/19/2017 9:41 AM Documents on File Type Date Recorded Patient [employer] Explanati on Advance Directive(s) 08/25/2021 8:30 AM [...] Medicine Procedures CONSULT TO PULM/CRITICAL CARE OFFICE/OUTPATIENT NEW HIGH MDM 60-74 MINUTES MELISSA Guillen.RECYCLING TECHNICIAN [address] [place] [address] Referral ID Status Reason Start Expiration Visits Visits Date Date Requested Authorized [id number] Authorized PCP Requested 03/13/2022 03/13/2023 1 1 Referral Specialty Diagnoses / Procedures Referred By Contact Refer red To Contact [facility] Diagnoses Dyspnea on exertion Savanna Kenny [facility] [place] Procedures LUNG DIFFUSION CAPACITY (DLCO) DIFFUSING CAPACITY MELISSA Guillen.RECYCLING TECHNICIAN [address] [place] [address] [place] [address] Referral ID Status Reason Start Expiration Visits Visits Date Date Requested Authorized [id number] Authorized Auto-Generat 03/13/2022 04/12/2023 1 1 ed Referral Specialty Diagnoses / Procedures Referred By Contact Refer red To Contact [facility] Diagnoses Dyspnea on exertion Savanna Kenny [facility] [place] Procedures SPIROMETRY - BASELINE AND POST DILATOR BRNCDILAT RSPSE SPMTRY PRE&POST-BRNCDILAT ADMN Crystal, BULB BRANDER.RECYCLING TECHNICIAN [address] [place] [id number] [place] [address] Referral ID Status Reason Start Expiration Visits Visits Date Date Requested Authorized [id number] Authorized Auto-Generat 03/13/2022 04/12/2023 1 1 ed Referral Specialty Diagnoses / Procedures Referred By Contact Refer red To Contact Vascular Surgery Diagnoses PAD (peripheral artery disease) ([facility]) Ulises Hermosillo MD Procedures CONSULT TO VASCULAR SURGERY OFFICE/OUTPATIENT [facility] 60-74 MINUTES [address] [place] [address] Referral ID Status Reason Start Expiration Visits Visits Date Date Requested Authorized [id number] Authorized PCP Requested 05/11/2022 05/11/2023 1 1 Referral Specialty Diagnoses / Procedures Referred By Contact Refer red To Contact HEART AND VASCULAR Diagnoses PAD (peripheral artery disease) ([facility]) Ulises Hermosillo, [facility] Procedures PVR LEG SHERIN VAS LAB NON-INVASIVE PHYSIOLOGIC STUDY EXTREMITY 3 ALPHONSO CASTILLO [place] [address] [facility] [address] [place] [address] [place] [address] Referral ID Status Reason Start Expiration Visits Visits Date Date Requested Authorized [id number] Authorized Auto-Generat 05/11/2022 05/11/2023 1 1 ed Referral Specialty Diagnoses / Procedures Referred By Contact Refer red To Contact CT IMAGING Diagnoses Smoker Encounter for screening for malignant neoplasm of lung Savanna Kenny, Ct Imaging Procedures CT LUNG SCREEN WO IVCON COMPUTED TOMOGRAPHY THORAX LW DOSE LNG CA SCR C- BULB BRANDER.RECYCLING TECHNICIAN [address] [place] [address] Referral ID Status Reason Start Expiration Visits Visits Date Date Requested Authorized [id number] Pending Auto-Generat 05/30/2022 06/29/2023 1 1 Review ed Referral Additional Source Comments INFORMATION SOURCE (unrecognized section and content) DATE CREATED AUTHOR AUTHOR'S ORGANIZ ATION 04/29/2018 [facility] DATE CREATED AUTHOR AUTHOR'S ORGANIZATIO N 05/04/2018 [facility] DATE CREATED AUTHOR AUTHOR'S ORGANIZATIO N 01/05/2022 [facility] DATE CREATED AUTHOR AUTHOR'S ORGANIZATIO N 08/11/2022 [facility] DATE CREATED AUTHOR AUTHOR'S ORGANIZATIO N 12/29/2022 [facility] ([place]) DATE CREATED AUTHOR AUTHOR'S ORGANIZATIO N 01/02/2023 [facility] Source Comments (unrecognized section an d content) [...] prosecute any alcohol or drug abuse patient. [facility] the event this information is protected by t Federal Confidentiality of Alcohol and Drug Abuse Patient Records regulations: This information has been disclosed to you from records protected by Federal confid entiality rules ( The Federal rules restrict any use of th e information to criminally investigate or prosecute any alcohol or drug abuse candice ent. [facility]In the event this information is protected by the Federal Confidentiality of Alcohol and Drug Abuse Patient Records regulations: This inform ation has been disclosed to you from records protected by Federal confidentiality rul es ( The Federal rules restrict any use of the in formation to criminally investigate or prosecute any alcohol or drug abuse candice ent. [facility] CenterIn the event this information is protected by the Federal Confidentiality of Alcohol and Drug Abuse Patient Records regulations: This inform ation has been disclosed to you from records protected by Federal confidentiality rul es ( The Federal rules restrict any use of the in formation to criminally investigate or prosecute any alcohol or drug abuse candice ent. [facility]In the event this information is protected by the Federal Confidentiality of Alcohol and Drug Abuse Patient Records regulations: This inform ation has been disclosed to you from records protected by Federal confidentiality rul es ( The Federal rules restrict any use of the in formation to criminally investigate or prosecute any alcohol or drug abuse candice ent. [facility]In the event this information is protected by the Federal Confidentiality of Alcohol and Drug Abuse Patient Records regulations: This inform ation has been disclosed to you from records protected by Federal confidentiality rul es ( The Federal rules restrict any use of the in formation to criminally investigate or prosecute any alcohol or drug abuse candice ent. [facility] CenterIn the event this information is protected by the Federal Confidentiality of Alcohol and Drug Abuse Patient Records regulations: This inform ation has been disclosed to you from records protected by Federal confidentiality rul es ( The Federal rules restrict any use of the in formation to criminally investigate or prosecute any alcohol or drug abuse candice ent. [facility] CenterIn the event this information is protected by the Federal Confidentiality of Alcohol and Drug Abuse Patient Records regulations: This inform ation has been disclosed to you from records protected by Federal confidentiality rul es ( The Federal rules restrict any use of the in formation to criminally investigate or prosecute any alcohol or drug abuse candice ent. [facility] CenterIn the event this information is protected by the Federal Confidentiality of Alcohol and Drug Abuse Patient Records regulations: This inform ation has been disclosed to you from records protected by Federal confidentiality rul es ( The Federal rules restrict any use of the in formation to criminally investigate or prosecute any alcohol or drug abuse candice ent. [facility] CenterIn the event this information is protected by the Federal Confidentiality of Alcohol and Drug Abuse Patient Records regulations: This inform ation has been disclosed to you from records protected by Federal confidentiality rul es ( The Federal rules restrict any use of the in formation to criminally investigate or prosecute any alcohol or drug abuse candice ent. [facility] CenterIn the event this information is protected by the Federal Confidentiality of Alcohol and Drug Abuse Patient Records regulations: This inform ation has been disclosed to you from records protected by Federal confidentiality rul es ( The Federal rules restrict any use of the in formation to criminally investigate or prosecute any alcohol or drug abuse candice ent. [facility] CenterIn the event this information is protected by the Federal Confidentiality of Alcohol and Drug Abuse Patient Records regulations: This inform ation has been disclosed to you from records protected by Federal confidentiality rul es ( The Federal rules restrict any use of the in formation to criminally investigate or prosecute any alcohol or drug abuse candice ent. [facility] CenterIn the event this information is protected by the Federal Confidentiality of Alcohol and Drug Abuse Patient Records regulations: This inform ation has been disclosed to you from records protected by Federal confidentiality rul es ( The Federal rules restrict any use of the in formation to criminally investigate or prosecute any alcohol or drug abuse candice ent. [facility] CenterIn the event this information is protected by the Federal Confidentiality of Alcohol and Drug Abuse Patient Records regulations: This inform ation has been disclosed to you from records protected by Federal confidentiality rul es ( The Federal rules restrict any use of the in formation to criminally investigate or prosecute any alcohol or drug abuse candice ent. [facility] CenterIn the event this information is protected by the Federal Confidentiality of Alcohol and Drug Abuse Patient Records regulations: This inform ation has been disclosed to you from records protected by Federal confidentiality rul es ( The Federal rules restrict any use of the in formation to criminally investigate or prosecute any alcohol or drug abuse candice ent. [facility] CenterIn the event this information is protected by the Federal Confidentiality of Alcohol and Drug Abuse Patient Records regulations: This inform ation has been disclosed to you from records protected by Federal confidentiality rul es ( The Federal rules restrict any use of the in formation to criminally investigate or prosecute any alcohol or drug abuse candice ent. [facility] CenterIn the event this information is protected by the Federal Confidentiality of Alcohol and Drug Abuse Patient Records regulations: This inform ation has been disclosed to you from records protected by Federal confidentiality rul es ( The Federal rules restrict any use of the in formation to criminally investigate or prosecute any alcohol or drug abuse candice ent. [facility] CenterIn the event this information is protected by the Federal Confidentiality of Alcohol and Drug Abuse Patient Records regulations: This inform ation has been disclosed to you from records protected by Federal confidentiality rul es ( The Federal rules restrict any use of the in formation to criminally investigate or prosecute any alcohol or drug abuse candice ent. [facility] CenterIn the event this information is protected by the Federal Confidentiality of Alcohol and Drug Abuse Patient Records regulations: This inform ation has been disclosed to you from records protected by Federal confidentiality rul es ( The Federal rules restrict any use of the in formation to criminally investigate or prosecute any alcohol or drug abuse candice ent. [facility] CenterIn the event this information is protected by the Federal Confidentiality of Alcohol and Drug Abuse Patient Records regulations: This inform ation has been disclosed to you from records protected by Federal confidentiality rul es ( The Federal rules restrict any use of the in formation to criminally investigate or prosecute any alcohol or drug abuse candice ent. [facility] CenterIn the event this information is protected by the Federal Confidentiality of Alcohol and Drug Abuse Patient Records regulations: This inform ation has been disclosed to you from records protected by Federal confidentiality rul es ( The Federal rules restrict any use of the in formation to criminally investigate or prosecute any alcohol or drug abuse candice ent. [facility] CenterIn the event this information is protected by the Federal Confidentiality of Alcohol and Drug Abuse Patient Records regulations: This inform ation has been disclosed to you from records protected by Federal confidentiality rul es ( The Federal rules restrict any use of the in formation to criminally investigate or prosecute any alcohol or drug abuse candice ent. [facility] CenterIn the event this information is protected by the Federal Confidentiality of Alcohol and Drug Abuse Patient Records regulations: This inform ation has been disclosed to you from records protected by Federal confidentiality rul es ( The Federal rules restrict any use of the in formation to criminally investigate or prosecute any alcohol or drug abuse candice ent. [facility] CenterIn the event this information is protected by the Federal Confidentiality of Alcohol and Drug Abuse Patient Records regulations: This inform ation has been disclosed to you from records protected by Federal confidentiality rul es ( The Federal rules restrict any use of the in formation to criminally investigate or prosecute any alcohol or drug abuse candice ent. [facility] CenterIn the event this information is protected by the Federal Confidentiality of Alcohol and Drug Abuse Patient Records regulations: This inform ation has been disclosed to you from records protected by Federal confidentiality rul es ( The Federal rules restrict any use of the in formation to criminally investigate or prosecute any alcohol or drug abuse candice ent. [facility] CenterIn the event this information is protected by the Federal Confidentiality of Alcohol and Drug Abuse Patient Records regulations: This inform ation has been disclosed to you from records protected by Federal confidentiality rul es ( The Federal rules restrict any use of the in formation to criminally investigate or prosecute any alcohol or drug abuse candice ent. [facility] CenterIn the event this information is protected by the Federal Confidentiality of Alcohol and Drug Abuse Patient Records regulations: This inform ation has been disclosed to you from records protected by Federal confidentiality rul es ( The Federal rules restrict any use of the in formation to criminally investigate or prosecute any alcohol or drug abuse candice ent. [facility] CenterIn the event this information is protected by the Federal Confidentiality of Alcohol and Drug Abuse Patient Records regulations: This inform ation has been disclosed to you from records protected by Federal confidentiality rul es ( The Federal rules restrict any use of the in formation to criminally investigate or prosecute any alcohol or drug abuse candice ent. [facility] CenterIn the event this information is protected by the Federal Confidentiality of Alcohol and Drug Abuse Patient Records regulations: This inform ation has been disclosed to you from records protected by Federal confidentiality rul es ( The Federal rules restrict any use of the in formation to criminally investigate or prosecute any alcohol or drug abuse candice ent. [facility] CenterIn the event this information is protected by the Federal Confidentiality of Alcohol and Drug Abuse Patient Records regulations: This inform ation has been disclosed to you from records protected by Federal confidentiality rul es ( The Federal rules restrict any use of the in formation to criminally investigate or prosecute any alcohol or drug abuse candice ent. [facility] CenterIn the event this information is protected by the Federal Confidentiality of Alcohol and Drug Abuse Patient Records regulations: This inform ation has been disclosed to you from records protected by Federal confidentiality rul es ( The Federal rules restrict any use of the in formation to criminally investigate or prosecute any alcohol or drug abuse candice ent. [facility] CenterIn the event this information is protected by the Federal Confidentiality of Alcohol and Drug Abuse Patient Records regulations: This inform ation has been disclosed to you from records protected by Federal confidentiality rul es ( The Federal rules restrict any use of the in formation to criminally investigate or prosecute any alcohol or drug abuse candice ent. [facility] CenterIn the event this information is protected by the Federal Confidentiality of Alcohol and Drug Abuse Patient Records regulations: This inform ation has been disclosed to you from records protected by Federal confidentiality rul es ( The Federal rules restrict any use of the in formation to criminally investigate or prosecute any alcohol or drug abuse candice ent. [facility] CenterIn the event this information is protected by the Federal Confidentiality of Alcohol and Drug Abuse Patient Records regulations: This inform ation has been disclosed to you from records protected by Federal confidentiality rul es ( The Federal rules restrict any use of the in formation to criminally investigate or prosecute any alcohol or drug abuse candice ent. [facility] CenterIn the event this information is protected by the Federal Confidentiality of Alcohol and Drug Abuse Patient Records regulations: This inform ation has been disclosed to you from records protected by Federal confidentiality rul es ( The Federal rules restrict any use of the in formation to criminally investigate or prosecute any alcohol or drug abuse candice ent. [facility] Reason for Visit (unrecognized section [...] Diagnoses Dyspnea on exertion Savanna Kenny [facility] [place] Procedures SPIROMETRY - BASELINE AND POST DILATOR BRNCDILAT RSPSE SPMTRY PRE&POST-BRNCDILAT ADMN MELISSA Guillen.RECYCLING TECHNICIAN [address] [place] [address] Referral ID Status Reason Start Date Expiration Date Visits V isits Requested Authorized [id number] Closed Auto-Generate 03/13/2022 04/12/2023 1 1 d [...] Medicine Procedures CONSULT TO PULM/CRITICAL CARE OFFICE/OUTPATIENT [facility] 60-74 MINUTES MELISSA Guillen.RECYCLING TECHNICIAN [address] [place] [address] Referral ID Status Reason Start Date Expiration Date Visits V isits Requested Authorized [id number] Closed PCP Requested 03/13/2022 03/13/2023 1 1 Referral Reason Comments Patient Update Reason Comments F/U 3 Month Reason Comments Mouth/Lip Problem Reason Comments Pain Mouth pain x 1 week Reason Comments Patient Question Reason Comments Established Patient Specialty Diagnoses / Procedures Referred By Contact Refer red To Contact Vascular Surgery Diagnoses PAD (peripheral artery disease) ([facility]) Ulises Hermosillo MD [place] Procedures CONSULT TO VASCULAR SURGERY OFFICE/OUTPATIENT [facility] 60-74 MINUTES [facility] [place] [address] [address] [place] [address] Referral ID Status Reason Start Date Expiration Date Visits V isits Requested Authorized [id number] Closed PCP Requested 05/11/2022 05/11/2023 1 1 Referral Reason Comments New Patient Hemoptysis Reason Comments Behavioral Health Social Work Care Teams (unrecognized section and con tent) Fairing Worker Relationship Specialty Start Date End Date Ulises Hermosillo MD PCP - General Internal Medicine 01/25/16 [address] [place] [address] Fairing Worker Relationship Specialty Start Date End Date Ulises Hermosillo MD PCP - General Internal Medicine 01/25/[address] [place] [address] Fairing Worker Relationship Specialty Start Date End Date Ulises Hermosillo MD PCP - General Internal Medicine 01/25/[address] [place] [address] Fairing Worker Relationship Specialty Start Date End Date Ulises Hermosillo MD PCP - General Internal Medicine 01/25/16 [address] [place] [address] Fairing Worker Relationship Specialty Start Date End Date Ulises Hermosillo MD PCP - General Internal Medicine 01/25/16 [address] [place] [address] Fairing Worker Relationship Specialty Start Date End Date Ulises Hermosillo MD PCP - General Internal Medicine 01/25/[address] [place] [address] Fairing Worker Relationship Specialty Start Date End Date Ulises Hermosillo MD PCP - General Internal Medicine 01/25/[address] [place] [address] Fairing Worker Relationship Specialty Start Date End Date Ulises Hermosillo MD PCP - General Internal Medicine 01/25/16 [address] [facility] [address] Fairing Worker Relationship Specialty Start Date End Date Ulises Hermosillo MD PCP - General Internal Medicine 01/25/16 [address] [facility] [place] [address] Fairing Worker Relationship Specialty Start Date End Date Ulises Hermosillo MD PCP - General Internal Medicine 01/25/16 [address] [facility] [place] [address] Fairing Worker Relationship Specialty Start Date End Date Ulises Hermosillo MD PCP - General Internal Medicine 01/25/16 [address] [facility] [place] [address] Fairing Worker Relationship Specialty Start Date End Date Ulises Hermosillo MD PCP - General Internal Medicine 01/25/16 [address] [facility] [place] [address] Fairing Worker Relationship Specialty Start Date End Date Ulises Hermosillo MD PCP - General Internal Medicine 01/25/16 [address] [facility] [place] [address] Fairing Worker Relationship Specialty Start Date End Date Ulises Hermosillo MD PCP - General Internal Medicine 01/25/16 [address] [facility] [place] [address] Fairing Worker Relationship Specialty Start Date End Date Ulises Hermosillo MD PCP - General Internal Medicine 01/25/16 [address] [facility] [place] [address] Fairing Worker Relationship Specialty Start Date End Date Ulises Hermosillo MD PCP - General Internal Medicine 01/25/16 [address] [facility] [address] Fairing Worker Relationship Specialty Start Date End Date Ulises Hermosillo MD PCP - General Internal Medicine 01/25/16 [address] [place] [address] Fairing Worker Relationship Specialty Start Date End Date Ulises Hermosillo MD PCP - General Internal Medicine 01/25/16 [address] [place] [address] Fairing Worker Relationship Specialty Start Date End Date Ulises Hermosillo MD PCP - General Internal Medicine 01/25/16 [address] [place] [address] Fairing Worker Relationship Specialty Start Date End Date Ulises Hermosillo MD PCP - General Internal Medicine 01/25/16 [address] [place] [address] Fairing Worker Relationship Specialty Start Date End Date Ulises Hermosillo MD PCP - General Internal Medicine 01/25/16 [address] [place] [address] Fairing Worker Relationship Specialty Start Date End Date Ulises Hermosillo MD PCP - General Internal Medicine 01/25/16 [address] [place] [address] Care Team (unrecognized section and cont ent) Personnel Name: ULISES HERMOSILLO MD Address: Address: [address] [place] [address]- Personnel Name: ULISES HERMOSILLO MD Address: Address: [address] [place] [address]- Care Team Personnel Name: ULISES HERMOSILLO MD Member Role: Primary Care Physician Address: Address: [address] [place] [address]- Name: Yolanda Decker RN Position: AO RN Member Role: RN Name: ZINA GLOVER DO Position: ED Physician Address: Address: [address] [facility] [place] [address]- [place] Name: BRIAN TRINIDAD DO Position: Resident Member Role: ED Physician Address: Address: [address] [facility] [place] [address]- [place] Care Team Related Persons Name: MELY SERNA Address: Home [address] [place] [address] [place] Name: MELY SERNA Address: Home [address] [place] [address] [place] Name: MELY SERNA Address: Home [address] [place] [address] [place] Name: MELY SERNA Address: Home [address] [place] [address] [place] Name: MELY SERNA Address: Home [address] [place] [address] [place] Name: MELY SERNA Address: Home [address] [place] [address] [place] Name: MELY SERNA Address: Home [address] [place] [address] [place] Care Team Personnel Name: ULISES HERMOSILLO MD Member Role: Primary Care Physician Address: Address: [address] [place] [address]- [place] Name: MD JOSE ROBERTO COMBS MD Position: ED Physician Member Role: ED Physician Address: Address: [facility] [address] [place] [address]- [place] Care Team Related Persons Name: MELY SERNA Address: Home [address] [place] [address] [place] Name: MELY SERNA Address: Home [address] [place] [address] [place] Name: MELY SERNA Address: Home [address] [place] [address] [place] Name: MELY SERNA Address: Home [address] [place] [address] [place] Name: MELY SERNA Address: Home [address] [place] [address] [place] Name: MELY SERNA Address: Home [address] [place] [address] [place] Name: MELY SERNA Address: Home [address] [place] [address] [place] FOR RECORDS PERTAINING TO PATIENTS WHO ARE [...] BE BASED ON THE PRIMARY CLINICAL RECORDS. [employer] provides no warranty or guarantee of the accuracy or completeness of information in this document.
[2023-01-02 19:13] LABS: Amphetamine Urine VISTA NEGATIVE (<1000 ng/mL); Barbiturate Urine VISTA NEGATIVE (< 200 ng/mL); Benzodiazepine Urine VISTA NEGATIVE (< 200 ng/mL); Cocaine Urine VISTA NEGATIVE (< 300 ng/mL); Ecstacy Urine VISTA NEGATIVE (< 500 ng/mL); Methadone Urine VISTA NEGATIVE (< 300 ng/mL); PCP Urine VISTA NEGATIVE (< 25 ng/mL); THC Urine VISTA NEGATIVE (< 50 ng/mL); Vista UDS pH Range 5
[2023-01-02 19:15] LABS: Bacteria 0 SEEN /hpf (None Seen); Mucous, Urine 0 SEEN /hpf (<or=2+); Red Blood Cells-Urine 0 SEEN /hpf (0-5); White Blood Cells 0 SEEN /hpf (0-5)
[2023-01-02 19:19] LABS: Color, Urine Yellow (Yellow); Glucose, Dipstick Normal (Normal); Ketone-Dipstick Negative (Negative); Leukocyte Esterase-Dipstick Negative /ul (Negative); Nitrite-Dipstick Negative (Negative); Occult Blood-Urine Negative /ul (Negative); Protein-Dipstick Negative (Negative); Specific Gravity, Urine 1.005 (1.002-1.030); Urine Bilirubin Dipstick Negative (Negative); Urine Clarity Clear (Clear); Urine Urobilinogen Normal (Normal)
[2023-01-02 19:23] LABS: Absolute Lymphocyte Count 2.67 X10^3/uL (0.83-4.51); Absolute Neutrophil Count 3.6 X10^3/uL (2.0-7.7); Basophil# 0.09 X10^3/uL; Basophil% 1.3 % (0-1); Eosinophils% 1.4 % (0-5); Hematocrit 43.9 % (37-47); Lymphocyte # 2.67 X10^3/ul (0.83-4.51); Lymphocyte % 37.2 % (19-41); Mean Corp Hgb Conc 31.9 g/dL (32-36); Mean Corpuscular Hgb 31.7 pg (27.0-32.0); Mean Corpuscular Volume 99.3 fL (81-99); Mean Platelet Vol. 9.8 fl (6.2-12.0); Monocyte# 0.69 X10^3/uL; Monocyte% 9.6 % (0-10); NRBC Flagged by Analyzer 0 % (0-5); Neutrophil # 3.59 X10^3/uL (2.7-7.7); Neutrophil % 50.1 % (47-70); Platelet Count 478 K/mm3 (150-450); RBC Distribution Width CV 15.6 % (11.6-14.6); RBC Distribution Width SD 56.6 fl (35.1-43.9); Red Blood Count 4.42 M/mm3 (4.2-5.4); White Blood Count 7.2 K/mm3 (4.4-11.0)
--- NOTE | 2023-01-02 19:24 | ED.RN ---
Pt placed on home O2 for pulse ox 87%. Dr. Ga hansen.
[2023-01-02 19:37] LABS: Squamous Epithelial Cells - UA 0-5 SEEN /hpf (5-10)
[2023-01-02 19:42] LABS: ALB/GLOB Ratio 0.9 RATIO (0.9-2.4); AST(SGOT) 17 U/L (15-37); Alanine Aminotransfer ALT/SGPT 24 U/L (13-56); Albumin, Serum 3.4 g/dL (3.2-5.0); Alkaline Phosphatase 63 U/L (45-117); Anion Gap 7 (5-15); BUN 11 mg/dL (7-18); BUN/Creat Ratio 13.7 RATIO (10-20); Calcium,Total 8.5 mg/dL (8.5-10.1); Chloride 109 mmol/L (98-107); EST Glomerular Filtration Rate 76 mL/min (>60); Est Glom Filt Rate - Afr Amer 91 mL/min (>60); Globulin 3.9 g/dL (2.2-4.2); Glucose 76 mg/dL (74-106); Lipase 235 U/L (73-393); Potassium 3.6 mmol/L (3.5-5.1); Protein, Total 7.3 g/dL (6.4-8.2); Sodium Level 143 mmol/L (136-145); Troponin-I HS 17 pg/mL (3.0-54.0)
--- NOTE | 2023-01-02 21:36 | HP.PCM_ITS ---
HPI - General General Date of Admission: 01/02/23 Date of Service: 01/02/23 Chief Complaint: Chest pain, dyspnea, EtOH withdrawal with abuse. HPI Narrative The patient is a 67 y/o F w/ PMHx: COPD, HTN, HLD, Depression and Anxiety, EtOH abuse, Tobacco use who presents to the [facility] ED on 01/02/23 with history of several complaints including chest discomfort starting approximately 10 in the morning ongoing since onset initially reporting having woken up at about 9 AM with onset at 10 AM described as vague, pressure-like in sensation with dyspnea, worse with exertion with wheezing prompting eventual ED evaluation. Patient also reports ongoing alcohol intake with at least 12 beers a day with last drink at approximately 10 AM currently stating she is interested in detoxification. She notes that she was in rehab years prior but is worsened recently with the of her dog and the loss of her brother to a felony as well as another relative to a fentanyl overdose prompting her to desire to become clean and sober. Patient currently reports mild tremors, nausea and some tactile disturbances work-up in the ED included T97.6, heart rate 99, BP 127/69, respiratory rate 16, initially 95% on room air however de-escalated to 87% on room air eventually placed on 2 L nasal cannula noted to be 95%, CBC with WC 7.2, hemoglobin 14, platelet 478 without marked shift, CMP with chloride 109, T. bili 0.10 otherwise [place] profile not marked appearing, lipase 235, troponin 17, urinalysis with no obvious evidence of UTI, urine drug screen negative, ethyl alcohol level 112, chest x-ray with COPD type changes with no acute cardiopulmonary findings otherwise, EKG with sinus rhythm with no acute evidence of ischemia. [facility] Medical History Alcohol abuse Anxiety and depression COPD (chronic obstructive pulmonary disease) HLD (hyperlipidemia) Hypertension Tobacco use Home Medications albuterol sulfate 90 mcg/actuation aerosol inhaler (Ventolin HFA) 2 puff inhalation Q2H PRN Wheezing ##1 05/25/14 [Rx Last Taken 02/21/18] Omeprazole [Prilosec] 40 mg PO DAILY ACID REFLUX 02/01/17 [History Last Taken 02/21/18] metoprolol tartrate 25 mg tablet 25 mg PO BID BLOOD PRESSURE 02/01/17 [History Last Taken 02/21/18] paroxetine HCl 30 mg tablet (Paxil) 30 mg PO DAILY MENTAL HEALTH 02/01/17 [History Last Taken 02/21/18] trazodone 100 mg tablet 100 mg PO QHS SLEEP 02/01/17 [History Last Taken Unknown] amlodipine 5 mg tablet 5 mg PO DAILY BLOOD PRESSURE 07/29/17 [History Last Taken 02/21/18] hydroxyzine pamoate 50 mg capsule (Vistaril) 50 mg PO TID PRN PRN Anxiety 07/29/17 [History Last Taken Unknown] lisinopril 40 mg tablet 40 mg PO DAILY BLOOD PRESSURE 07/29/17 [History Last Taken 02/21/18] Allergy/AdvReac Type Severity Reaction Status Date / Time No Known Allergies Allergy Verified 07/29/17 15:15 Family History (Updated 01/02/23 @ 21:[address] Linda Luque MD) Mother Liver cancer Father Lung cancer Family History no significant family his Surgical History (Updated 01/02/23 @ 21:[address] Linda Luque MD) History of cervical spinal surgery History of tonsillectomy S/P appendectomy S/P cholecystectomy Social History (Updated 01/02/23 @ 21:[address] Linda Luque MD) household members: spouse Smoking Status: Current every day smoker tobacco type: cigarettes Smoking packs per day: 1 Smoking cigarettes per day: 20.0 alcohol intake: current alcohol intake frequency: 3 or more drinks per day details: 12-14 beers daily. substance use type: does not use ROS ROS Narrative Admission Review of Systems: CONSTITUTIONAL: No weight loss, fever, chills, + weakness or fatigue. HEENT: + Congestion. Eyes: No visual loss, blurred vision, double vision or yellow sclerae. Ears, Nose, Throat: No hearing loss, sneezing, runny nose or sore throat. SKIN: No rash or itching, lesions, wounds. CARDIOVASCULAR: + chest pain, chest pressure or chest discomfort, No palpitations, edema, orthopnea, syncopal events. RESPIRATORY:+ shortness of breath, cough without marked sputum, wheezing, No hemoptysis. GASTROINTESTINAL: + anorexia, nausea, No vomiting or diarrhea, abdominal pain, melena, BRBPR. GENITOURINARY: No dysuria, frequency, urgency or retention. NEUROLOGICAL: + Mild tremors, tactile disturbances. No headache, dizziness, syncope, paralysis, ataxia, numbness or tingling in the extremities, focal weakness, change in bowel or bladder control, seizure. MUSCULOSKELETAL: + muscle, back pain, joint pain or stiffness. HEMATOLOGIC: No anemia, bleeding or bruising. LYMPHATICS: No enlarged nodes. No history of splenectomy. PSYCHIATRIC: + history of depression or anxiety. ENDOCRINOLOGIC: No reports of sweating, cold or heat intolerance. No polyuria or polydipsia. ALLERGIES: No history of asthma, hives, eczema or rhinitis. Vital Signs Vital Signs Vital Signs: 01/02/23 17:54 01/02/23 18:52 01/02/23 19:00 Temperature 97.6 F L 98.5 F Temperature Source Temporal Temporal Pulse Rate 99 90 Respiratory Rate 16 18 Respiratory Effort Labored Accessory Muscle Use Blood Pressure 127/69 H 113/72 Blood Pressure Mean 88 85 Pulse Ox 95 Oxygen Delivery Method Room Air Room Air Room Air Oxygen Flow Rate (L/min) 01/02/23 19:18 01/02/23 19:25 01/02/23 19:25 Temperature Temperature Source Pulse Rate 101 H Respiratory Rate 17 Respiratory Effort Blood Pressure 114/71 Blood Pressure Mean 85 Pulse Ox 91 87 95 Oxygen Delivery Method Room Air Room Air Nasal Cannula Oxygen Flow Rate (L/min) 2 01/02/23 20:00 01/02/23 21:00 Temperature Temperature Source Pulse Rate 95 94 Respiratory Rate 23 H 22 H Respiratory Effort Blood Pressure 122/88 H Blood Pressure Mean 99 Pulse Ox 98 95 Oxygen Delivery Method Room Air Nasal Cannula Oxygen Flow Rate (L/min) 2 Weight Weight: 131 lb 3.2 oz Body Mass Index (BMI) 21.8 Physical Exam Narrative Physical Examination: General: Awake, alert, oriented x 3 and cooperative, seated upright in ED bed, fatigued, coughing during evaluation. Skin: Normal color, normal turgor, no icterus, no cyanosis. HEENT: AT/NC, EOMI, PERRLA, mildly dry MM, no carotid bruits or JVD noted. Lungs: Significantly diminished especially in the posterior randle, anterior field expiratory wheezing diffusely, coughing elicited with deep inspiratory effort, no rhonchi or rales, mildly increased respiratory rate but no distress. Heart: Currently regular rate and rhythm; no gallop, rub audible. Abdomen: Soft, NTTP, ND, normal BS, + mild HM. Extremities: No cyanosis, clubbing, or edema. Neurological: Patient awake, alert, oriented as noted, cognitive function intact; pupils equally reactive to light and accommodation, cranial nerves II- XII grossly normal, moving all 4 extremities, no focal deficits, strength moderately globally Tere secondary to acute presentation. Psychiatric: Affect appears fatigued, no acute evidence of depressive or anxiety feelings but does have underlying history. Results Lab / Micro Data Result Diagrams: 01/02/23 19:17 01/02/23 19:17 Labs: Laboratory Results - last 24 hr 01/02/23 18:30: Urine Opiates Screen NEGATIVE, Urine Methadone Screen NEGATIVE, Ur Barbiturates Screen NEGATIVE, Ur Phencyclidine Scrn NEGATIVE, Ur Amphetamines Screen NEGATIVE, MDMA (Ecstasy) Screen NEGATIVE, U Benzodiazepines Scrn NEGATIVE, Urine Cocaine Screen NEGATIVE, U Cannabinoids Screen NEGATIVE, Ur Drug Screen Comment 01/02/23 18:30: Urine Color Yellow, Urine Clarity Clear, Urine pH 6.0, Ur Specific [place] 1.005, Urine Protein Negative, Urine Glucose (UA) Normal, Urine Ketones Negative, Urine Occult Blood Negative, Urine Nitrite Negative, Urine Bilirubin Negative, Urine Urobilinogen Normal, Ur Leukocyte Esterase Negative, Urine RBC 0 SEEN, Urine WBC 0 SEEN, Ur Squamous Epith Cells 0-5 SEEN, Urine Bacteria 0 SEEN, Urine Mucus 0 SEEN 01/02/23 19:17: WBC 7.2, RBC 4.42, Hgb 14.0, Hct 43.9, MCV 99.3 H, MCH 31.7, MCHC 31.9 L, RDW Std Deviation 56.6 H, RDW Coeff of Ni 15.6 H, Plt Count 478 H, MPV 9.8, Immature Gran % (Auto) 0.400, Neut % (Auto) 50.1, Lymph % (Auto) 37.2, Grant % (Auto) 9.6, Eos % (Auto) 1.4, Baso % (Auto) 1.3 H, Absolute Neuts (auto) 3.6, Absolute Lymphs (auto) 2.67, Nucleated RBC % 0 01/02/23 19:17: Sodium 143, Potassium 3.6, Chloride 109 H, Carbon Dioxide 27.0, Anion Gap 7, BUN 11, Creatinine 0.80, Estim Creat Clear Calc 61.40, Est GFR (MDRD) Af Amer 91, Est GFR (MDRD) Non-Af 76, BUN/Creatinine Ratio 13.7, Glucose 76, Calcium 8.5, Total Bilirubin 0.10 L, AST 17, ALT 24, Alkaline Phosphatase 63, Troponin I High Sens 17, Total Protein 7.3, Albumin 3.4, Globulin 3.9, Albumin/Globulin Ratio 0.9, Lipase 235 01/02/23 19:17: Ethyl Alcohol 112.0 Radiology Impression Chest X-Ray 01/02/23 19:00 IMPRESSION: COPD. No acute cardiopulmonary pathology Electronically Signed: Dylan Sethi MD at 21:10 EST , Assessment & Plan Assessment/Plan (1) Chest pain: (2) COPD exacerbation: (3) Desire for detoxification: PLAN: Plan The patient is a 67 y/o F w/ PMHx: COPD, HTN, HLD, Depression and Anxiety, EtOH abuse, Tobacco use who presents to the [facility] ED on 01/02/23 with history of several complaints including chest discomfort starting approximately 10 in the morning ongoing since onset initially reporting having woken up at about 9 AM with onset at 10 AM described as vague, pressure-like in sensation with dyspnea, worse with exertion with wheezing prompting eventual ED evaluation. #1. Acute Hypoxia secondary to Acute Mild on Chronic COPD exacerbation: Will admit to PCU given #2 complaints to be cautious, maintain on oxygen with wean as tolerated to room air, continue ATC duonebs, PRN albuterol, IV methylprednisolon e, HOB, IS parameters, procalcitonin requested, full respiratory viral panel requested, sputum Cx if able to provide. #2. Chest Pain, suspected more so related to acute COPD exacerbation as noted #1: EKG in ED sinus rhythm with no evidence of ischemia, CXR w/ chronic COPD type changes with no acute cardiopulmonary findings otherwise, initial trop 17. Will place on a monitored bed to assure no acute myocardial infarction with serial cardiac enzymes and EKGs. Again lower suspicion for cardiac etiology but to be cautious we will trend enzymes, obtain FLP in a.m. as well as magnesium level. ASA, NG. If any concerning EKG changes or elevated enzymes arise may consider future stress testing. #3. Acute EtOH Withdrawal: Given interest in sobriety, will initiate and continue on protocol with taper course of Phenobarbital, scheduled gabapentin for seizure prophylaxis, as needed Bentyl, Vistaril, IV fluids, IV antiemetics, Tylenol as needed for pain. Will consult Case management for assistance for transition to next level of rehabilitation care. Mag, phos pending. Maintain on CIWA protocol concurrently. #4. Anxiety and depression: We will continue patient home trazodone as well as paroxetine home regimen, would benefit greatly from counseling especially given ongoing alcohol abuse and recent admissions of significant events in her life leading to increased alcohol consumption. #5. Hypertension: Continue home regimen including lisinopril, amlodipine, metoprolol, PRN hydralazine. #6. Hyperlipidemia: Not on statin therapy, FLP in AM given chest pain complaints and evaluation as noted. #7. Tobacco Abuse: Encouraged cessation, inpatient consultation per RT, NR if desired. #8. GERD: We will maintain on PPI. #9. DVT prophylaxis: SCDs, Lovenox. Admission Evaluation Time spent evaluating chart, patient history, patient evaluation, care planning and discussion with specialists: 76 minutes. Charges/Coding Visit Charges Inpatient E&M: 85723 Init Hosp L3
--- OUTSIDE RECORDS SUMMARY | 2023-01-02 21:45 | XMS RPT_ITS | CCD ---
[...] Refil l(s), 05/08/22 11:02: 00 EDT, Pharmacy: [facility]/pharmacy #[id number], 165.1, cm, 04/12 01/02 9:53:00 [...] 10.2 gra m(s), 0 Refill(s), Phar randell: [facility]/pharmacy #[id number], 165.1, cm, 04/12 01/02 9:53:00 [...] to treat chronic pain (ICD-10 code G89.18). [id number] 200 actuat albuterol 0.09 mg/actuat metered dose [...] Take 1 tablet by mouth once daily. quprwjqtfnd-zlvvhffih-rkmridkf (TRELEGY ELLIPTA) 200-62.5-25 mcg inhalation powder Start: [...] Place End: 05-11-2022 1 Lozenge between ch [place] and gum as needed. 168 Lozenge 2 10/19/2021 Discontinued Comment on above: Apply 1 Patch as directed ev thomas [address] 1 Lozenge between pam k and gum as needed. nystatin [id number] unt/ml oral suspension Polyene Antifungal Start: nystatin [...] atherosclerosis; Translations: 1 [Atherosclerotic heart disease of [place] coronary artery without angina pectoris] Disorders of [...] Test Name Value Interpretation Reference Range Facility [address] on 01-01-2023 Alpha 1 antitrypsin [Mass/Vol] 192 mg/dL Normal 90-[address] [facility] Comment on above: Order Comment: Specimen Type : BLOOD SPECIMENOrdering Facility: [facility] Address: [address] [place] [address] Performed By: #### 1825-9 ## ##[facility] LABCLIA [id number] [place] [address] [place] CBC W Auto Differential panel (Bld) on 01-01-2023 Basophils (Bld) [#/Vol] 0.07 10*3/uL Normal <0.11 [facility] Comment on above: Order Comment: Specimen Type : BLOOD SPECIMENOrdering Facility: [facility] Address: [address] [place] [address] Performed By: #### 99901-7 # ###[facility] LABCLIA [id number] [place] [address] [place] Basophils/100 WBC (Bld) 1.0 % Normal [facility] Comment on above: Order Comment: Specimen Type : BLOOD SPECIMENOrdering Facility: [facility] Address: [address] [place], [place] [address] Performed By: #### 90186-7 # ###[facility] LABCLIA [id number] [place] [address] [place] Differential cell count method Nom (Bld) Auto Normal [facility] Comment on above: Order Comment: Specimen Type : BLOOD SPECIMENOrdering Facility: [facility] Address: [address] Performed By: #### 71065-0 # ###[facility] LABCLIA [id number] [place] [address] [place] Eosinophils (Bld) [#/Vol] 0.07 10*3/uL Normal <0.46 [facility] Comment on above: Order Comment: Specimen Type : BLOOD SPECIMENOrdering Facility: [facility] Address: [address] Performed By: #### 08884-0 # ###[facility] LABCLIA [id number] [place] [address] [place] Eosinophils/100 WBC (Bld) 1.0 % Normal [facility] Comment on above: Order Comment: Specimen Type : BLOOD SPECIMENOrdering Facility: [facility] Address: [address] [place], [place] [address] Performed By: #### 34587-3 # ###[facility] LABCLIA [id number] [place] [address] [place] Erythrocyte distribution width (RBC) 15.8 % High 11.5 -15.[address] [facility] [Ratio] Comment on above: Order Comment: Specimen Type : BLOOD SPECIMENOrdering Facility: [facility] Address: [address] [place], [place] [address] Performed By: #### 66603-5 # ###[facility] LABCLIA [id number] [place] [address] [place] Hematocrit (Bld) [Volume fraction] 44.4 % Normal 36.0-[address] [facility] Comment on above: Order Comment: Specimen Type : BLOOD SPECIMENOrdering Facility: [facility] Address: [address] [place] [address] Performed By: #### 48442-9 # ###[facility] LABIA [id number] [place] [address] [place] Hemoglobin (Bld) [Mass/Vol] 14.1 g/dL Normal 11.5-15.[address] [facility] Comment on above: Order Comment: Specimen Type : BLOOD SPECIMENOrdering Facility: [facility] Address: [address] [place] [address] Performed By: #### 28179-4 # ###[facility] LABIA [id number] [place] [address] [place] Immature granulocytes (Bld) [#/Vol] 10*3/uL Normal <0.[address] [facility] Comment on above: Order Comment: Specimen Type : BLOOD SPECIMENOrdering Facility: [facility] Address: [address] [place] [address] Performed By: #### 04064-9 # ###[facility] LABIA [id number] [place] [address] [place] Immature granulocytes/100 WBC (Bld) 0.3 % Normal [facility] Comment on above: Order Comment: Specimen Type : BLOOD SPECIMENOrdering Facility: [facility] Address: [address] [place], [place] [address] Performed By: #### 91826-9 # ###[facility] LABIA [id number] [place] [address] [place] Lymphocytes (Bld) [#/Vol] 1.67 10*3/uL Normal 1.00-4.00 [facility] Comment on above: Order Comment: Specimen Type : BLOOD SPECIMENOrdering Facility: [facility] Address: [address] Performed By: #### 66693-5 # ###[facility] LABCLIA [id number] [place] [address] [place] Lymphocytes/100 WBC (Bld) 23.3 % Normal [facility] Comment on above: Order Comment: Specimen Type : BLOOD SPECIMENOrdering Facility: [facility] Address: [address] Performed By: #### 92316-0 # ###[facility] LABCLIA [id number] [place] [address] [place] MCH (RBC) [Entitic mass] 32.0 pg Normal 26.0-34.0 [facility] Comment on above: Order Comment: Specimen Type : BLOOD SPECIMENOrdering Facility: [facility] Address: [address] Performed By: #### 11067-5 # ###[facility] LABCLIA [id number] [place] [address] [place] MCHC (RBC) [Mass/Vol] 31.8 g/dL Normal 30.5-36.0 [facility] Comment on above: Order Comment: Specimen Type : BLOOD SPECIMENOrdering Facility: [facility] Address: [address] [place] [address] Performed By: #### 59630-1 # ###[facility] LABCLIA [id number] [place] [address] [place] MCV (RBC) [Entitic vol] 100.9 fL High 80.0-100.0 [facility] Comment on above: Order Comment: Specimen Type : BLOOD SPECIMENOrdering Facility: [facility] Address: [address] Performed By: #### 89924-8 # ###[facility] LABCLIA [id number] [place] [address] [place] Monocytes (Bld) [#/Vol] 0.91 10*3/uL High <0.87 [facility] Comment on above: Order Comment: Specimen Type : BLOOD SPECIMENOrdering Facility: [facility] Address: [address] [place] [address] Performed By: #### 14407-9 # ###[facility] LABCLIA [id number] [place] [address] [place] Monocytes/100 WBC (Bld) 12.7 % Normal [facility] Comment on above: Order Comment: Specimen Type : BLOOD SPECIMENOrdering Facility: [facility] Address: [address] [place] [address] Performed By: #### 71944-3 # ###[facility] LABCLIA [id number] [place] [address] [place] Neutrophils (Bld) [#/Vol] 4.44 10*3/uL Normal 1.45-7.50 [facility] Comment on above: Order Comment: Specimen Type : BLOOD SPECIMENOrdering Facility: [facility] Address: [address] [place], [place] [address] Performed By: #### 77999-7 # ###[facility] LABCLIA [id number] [place] [address] [place] Neutrophils/100 WBC (Bld) 61.7 % Normal [facility] Comment on above: Order Comment: Specimen Type : BLOOD SPECIMENOrdering Facility: [facility] Address: [address] [place], [place] [address] Performed By: #### 93192-3 # ###[facility] LABCLIA [id number] [place] [address] [place] Nucleated RBC (Bld) [#/Vol] 10*3/uL Normal <0.[address] [facility] Comment on above: Order Comment: Specimen Type : BLOOD SPECIMENOrdering Facility: [facility] Address: [address] Performed By: #### 79675-4 # ###[facility] LABIA [id number] [place] [address] [place] Nucleated RBC/100 WBC (Bld) [Ratio] 0.0 /[address] [facility] Comment on above: Order Comment: Specimen Type : BLOOD SPECIMENOrdering Facility: [facility] Address: [address] Performed By: #### 77329-5 # ###[facility] LABIA [id number] [place] [address] [place] Platelet mean volume (Bld) 10.1 fL Normal 9.0-12.7 [facility] [Entitic vol] Comment on above: Order Comment: Specimen Type : BLOOD SPECIMENOrdering Facility: [facility] Address: [address] [place], [place] [address] Performed By: #### 32447-8 # ###[facility] LABIA [id number] [place] [address] [place] Platelets (Bld) [#/Vol] 439 10*3/uL High 150-[address] [address] Comment on above: Order Comment: Specimen Type : BLOOD SPECIMENOrdering Facility: [facility] Address: [address] [place] [address] Performed By: #### 20512-0 # ###[facility] LABIA [id number] [place] [address] [place] RBC (Bld) [#/Vol] 4.40 10*6/uL Normal 3.90-5.[address] [facility] Comment on above: Order Comment: Specimen Type : BLOOD SPECIMENOrdering Facility: [facility] Address: [address] [place], [place] [address] Performed By: #### 22188-6 # ###[facility] LABIA [id number] [place] [address] [place] WBC (Bld) [#/Vol] 7.18 10*3/uL Normal 3.70-11.[address] [facility] Comment on above: Order Comment: Specimen Type : BLOOD SPECIMENOrdering Facility: [facility] Address: [address] [place] [id number] Performed By: #### 46723-1 # ###[facility] LABIA [id number] [address] [place] CNOV on 01-01-2023 CNOV Office Visit (INTMWS) Normal [facility] VINCE KOENIG ([id number]) 1955 [facility] Date Time Provider Department 01/01/23 2:00 PM OLY SMITH INTMWS During your visit today, we recorded the following inf ormation about you: Pulse Respiration Blood pressure Weight 85/minute 22/minute 170/83 58.1 kg Oly Smith APRN.ENERGY CONSERVATION SPECIALIST 01/01/2023 3:27 PM Addendum CC: Patient presents [...] Anxiety 12/14/2015 Bipolar affective disorder, currently active ([facility]) 07/2016 Dr. Angie Jones, [facility] Chronic bronchitis ([facility]) 07/26/2016 Closed skull fracture ([facility]) 1994 [facility], [facility] Coronary artery disease DDD (degenerative disc disease), cervical Endometriosis 2007 Essential hypertension 12/14/2015 GERD (gastroesophageal reflux disease) 03/13/2019 History of colon polyps History of gastric ulcer 12/14/2015 HLD (hyperlipidemia) Injury of left facial nerve 1994 PAD (peripheral artery disease) ([facility]) 09/28/2019 Recurrent major depression in partial remission ([facility]) 12/14/2015 S/P drug eluting coronary stent placement [...] NERVE DECOMPRESSION AND/REPAIR Left 1989 [facility] Patient has no known allergies. MEDICATIONS traZODone (DESYREL) 100 mg tablet Take 2 tablets by mo uth daily at bedtime. aiyyyquyjou-uxjgvabkx-oiakiyct (TRELEGY ELLIPTA) 200-6 2.5-25 mcg inhalation powder [...] 1 tabl (more conten t not included)... [facility] VINCE KOENIG ([id number]) 1955 [facility] Date Time Provider Department 01/01/23 DIANA PENA PCCREJ During your visit today, we recorded the following inf ormation about you: GIO Cardona 01/01/2023 3:55 PM Signed Behavioral Health Social Work Progress Note Patient identified for [facility] from: PCP Reason for referral: Resources Behavioral Health Resources: Substance abuse [facility] encounter type: Telephone Encounter Attempts to Outreach: [...] look into for detox[facility] and substance [facility]: [facility] [address] [place], [place] [phone] [address] [phone] [facility] [address] [place], [place] [phone] Patient states she may end up just going to [facility] if she can't find anywhere to go to assist as she really needs to detox. Advised to call these numbers and if additional assistance is needed to info rm this SW. GIO Cardona January 01, 2023 Allergies As of Date: 01/01/2023 (No Known Allergies) Date Reviewed: 01/01/2023 Reviewed by: Oly Smith APRN.ENERGY CONSERVATION SPECIALIST - Fully Assessed Reason for Visit: Behavioral Health Social Work [Other] Prescriptions as of 01/01/2023 - traZODone (DESYREL) 100 mg tablet Take 2 tablets by mouth daily at bedtime. - hwdhyzbqgkv-fwvquvpwc-nxnblucm (TRELEGY ELLIPT A) 200-62.5-25 mcg inhalation powder [...] minutes, none*201807/07/2020 PAD (peripheral artery disea se) ([facility]) [I73.9] 09/28/2019 (more content not included)... XR CHEST 2V FRONTAL/LAT on 01-01-2023 XR CHEST 2V FRONTAL/LAT * * *Final Report* * * Normal [facility] DATE OF EXAM: Jan 01 2023 1:02PM [place] WOX 5291 - XR CHEST 2V FRONTAL/LAT [...] tissues: Unremarkable. IMPRESSION: No acute radiographic abnormality. [facility] Transcribe Date/Time: Jan 01 2023 3:22P Dictated by : HUBER VILA MD This examination was interpreted and the report review ed and electronically signed by: HUBER VILA MD on Jan 01 2023 3:23PM EST [id number] .Auto Diff on 12-23-2022 Basophil, Absolute 0.1 10 3/mcL Normal 0.0-0.2 [facility] ([place]) Comment on above: Performed By: #### TROPHS, G FR, CMP, PBNP #### [address] [address] Basophils/100 WBC (Bld) 1.5 % Normal 0.0-2.5 [facility] ([place] Comment on above: Performed By: #### TROPHS, G FR, CMP, PBNP #### [address] [address] Eosinophil, Absolute 0.1 10 3/mcL Normal 0.0-0.4 [facility] ([place] Comment on above: Performed By: #### TROPHS, G FR, CMP, PBNP #### [address] [address] Eosinophils/100 WBC (Bld) 1.1 % Normal 0.0-7.0 [facility] ([place] Comment on above: Performed By: #### TROPHS, G FR, CMP, PBNP #### [address] [address] Lymphocyte, Absolute 2.0 10 3/mcL Normal 0.8-3.9 [facility] ([place] Comment on above: Performed By: #### TROPHS, G FR, CMP, PBNP #### [address] [address] Lymphocytes/100 WBC (Bld) 36.4 % Normal 10.0-50.0 [facility] ([place] Comment on above: Performed By: #### TROPHS, G FR, CMP, PBNP #### [place] [address] [place], [place] [address] Monocyte, Absolute 0.5 10 3/mcL Normal 0.2-1.0 [facility] ([place] Comment on above: Performed By: #### TROPHS, G FR, CMP, PBNP #### [address] [address] Monocytes/100 WBC (Bld) 9.3 % Normal 1.7-13.0 [facility] ([place] Comment on above: Performed By: #### TROPHS, G FR, CMP, PBNP #### [address] [address] Neutrophils/100 WBC (Bld) 51.7 % Normal 37.0-80.0 [facility] ([place] Comment on above: Performed By: #### TROPHS, G FR, CMP, PBNP #### [address] [address] .GFR on 12-23-2022 GFR 100 ml/min/1.73sqm Normal [facility] ([place]) Comment on above: Result Comment: GFR Population mean for Afri can Peruvian, Non- Americans Ages 20-29 = 116 mL/min/1.73 [...] #### TROPHS, G FR, CMP, PBNP #### [address] [address] GFR Non- 82 ml/min/1.73sqm Normal [facility] ([place]) Comment on above: Result Comment: GFR Population mean for Afri can Peruvian, Non- Americans Ages 20-29 = 116 mL/min/1.73 [...] JOSE JS, G FR, CMP, PBNP #### [address] [address] .MDW on 12-23-2022 Monocyte Distribution Width 18.17 Normal 0.00-20.00 [facility] ([place] Comment on above: Result Comment: For ED adult patients suspected of sepsis, MDW<=20.0 does not rule out sepsis or risk of sepsis Performed By: #### FLYNN G FR, CMP, PBNP #### [address] [address] .NEUABS on 12-23-2022 Neutrophil, Absolute 2.8 10 3/mcL Low 2.9-6.2 [facility] ([place] Comment on above: Performed By: #### FLYNN, G FR, CMP, PBNP #### [address] [address] BMP on 12-23-2022 BUN/Creatinine Ratio 6 ratio Low 7-27 [facility] ([place] Comment on above: Performed By: #### JOSE JS, G FR, CMP, PBNP #### [address] [address] Calcium [Mass/Vol] 8.1 mg/dL Low 8.4-10.2 [facility] ([place] Comment on above: Performed By: #### TROPHS, G FR, CMP, PBNP #### [address] [address] Chloride [Moles/Vol] 102 mmol/L Normal 98-107 [facility] ([place] Comment on above: Performed By: #### Gustavo PRUETT, CMP, PBNP #### [address] [address] CO2 [Moles/Vol] 30 mmol/L Normal 23-31 [facility] ([place]) Comment on above: Performed By: #### Gustavo PRUETT, CMP, PBNP #### [address] [address] Creatinine [Mass/Vol] 0.71 mg/dL Normal 0.55-1.02 [facility] ([place] Comment on above: Performed By: #### Gustavo PRUETT, CMP, PBNP #### [address] [address] Electrolyte Balance 7.0 mEq/L Normal 4.0-15.0 [facility] ([place] Comment on above: Performed By: #### Gustavo PRUETT, CMP, PBNP #### [address] [address] Glucose [Mass/Vol] 88 mg/dL Normal 80-115 [facility] ([place] Comment on above: Performed By: #### Gustavo PRUETT, CMP, PBNP #### [address] [address] Potassium [Moles/Vol] 4.1 mmol/L Normal 3.5-5.1 [facility] ([place] Comment on above: Performed By: #### Gustavo PRUETT, CMP, PBNP #### [address] [address] Sodium [Moles/Vol] 139 mmol/L Normal 136-145 [facility] ([place] Comment on above: Performed By: #### Gustavo PRUETT, CMP, PBNP #### [address] [address] Urea nitrogen [Mass/Vol] 4 mg/dL Low 7-18 [facility] ([place] Comment on above: Performed By: #### TROPHS, G FR, CMP, PBNP #### [address] [address] CBC on 12-23-2022 Erythrocyte distribution width 15.8 % High 11.5-14.5 [facility] ([place] (RBC) [Ratio] Comment on above: Performed By: #### JOSE JS G FR, CMP, PBNP #### [address] [address] Hematocrit (Bld) [Volume 39.7 % Normal 37.0-47.0 [facility] ([place]) fraction] Comment on above: Performed By: #### JOSE JS G FR, CMP, PBNP #### [address] [address] Hgb 13.2 G/dL Normal 12.0-16.0 [facility] ([place] Comment on above: Performed By: #### JOSE JS G FR, CMP, PBNP #### [address] [address] MCH (RBC) [Entitic mass] 32.3 pg High 27.0-31.2 [facility] ([place] Comment on above: Performed By: #### JOSE JS G FR, CMP, PBNP #### [address] [address] MCHC 33.2 G/dL Normal 33.0-37.0 [facility] ([place] Comment on above: Performed By: #### TROPHS, G FR, CMP, PBNP #### [address] [address] MCV (RBC) [Entitic vol] 97.3 fL High 80.0-94.0 [facility] ([place] Comment on above: Performed By: #### JOSE JS G FR, CMP, PBNP #### [address] [address] Platelet 337 10 3/mcL Normal 130-400 [facility] ([place] Comment on above: Performed By: #### TROPHS, G FR, CMP, PBNP #### [facility] [address] [place], [place] [address] Platelet mean volume (Bld) 7.7 fL Normal 7.4-10.4 [facility] ([place]) [Entitic vol] Comment on above: Performed By: #### TROPHS, G FR, CMP, PBNP #### [facility] [address] [place], [place] [address] RBC 4.08 10 6/mcL Low 4.20-5.40 [facility] ([place] Comment on above: Performed By: #### TROPHS, G FR, CMP, PBNP #### [place] [address] [place], [place] [address] WBC 5.4 10 3/mcL Normal 4.6-10.8 [facility] ([place] Comment on above: Performed By: #### TROPHS, G FR, CMP, PBNP #### [place] [address] [place], [place] [address] LABORATORY Ordered By: Glenda brown on 12-23-2022 [...] Non- 82 Invalid Interpretation AO Chemistry S [place]uv[place] ml/min/1.73sqm Code Glucose [Mass/Vol] 88 mg/dL Invalid [...] B (Bld) 540 pg/mL High 0-125 [facility] ([place] [Mass/Vol] Comment on above: Result Comment: NT-proBNP re sults of less than 300 pg/mL effectively rules out acute congestive h eart failure with 99% negative predictive value. Performed By: #### Gustavo PRUETT FR, CMP, PBNP #### [address] [address] TROPHS on 12-23-2022 Troponin I High Sensitivity 14.1 ng/L Normal 0.0-51.4 [facility] ([place] Comment on above: Performed By: #### Gustavo PRUETT FR, CMP, PBNP #### [facility] [address] [place], [place] [address] XR CHEST 1 VIEW on 12-23-2022 XR CHEST 1 VIEW ORIGINAL Normal [facility] EXAMINATION: ([place]) ONE XRAY VIEW OF THE [...] (PULMWS) Normal [facility] VINCE KOENIG ([id number]) 1955 [facility] Time Provider Department 11/26/22 12:45 PM SALIMA ASHER PULMWS During your visit today, we recorded the following inf ormation about you: Pulse Respiration Blood pressure Weight 98/minute 20/minute 120/84 57.6 kg Salima Asher MD 11/26/2022 2:01 PM Signed . Respiratory [place] Note Patient name: Vince Koenig PCP: Ulises Hermosillo MD CC: Hemoptysis HPI: Vince Koenig 67 year old female curren t heavy smoker, over 100 pack years with PMH significant for bipolar affective disorder, h/o alcohol abuse, GERD, PAD, HLD, CAD s/p stent, severe COPD (FEV1 0.83 L 36%), oxygen dependence, previously following in [facility], new to me. Recent admission at [facility] in [place] for AE COPD. CXR reported as normal. [...] No chest pain or current cough. DME: [facility] DATA: PFT 05/2022: Review of spirometry shows severe obstruction wi thout significant improvement post bronchodilators and moderate reduction in diffusi ng capacity Labs: Laboratory testing at [facility], normal CBC and platelet count. Negative COVID and influenza Imaging / Diagnostic Studies: DATE OF EXAM: Jul 26 2022 4:27PM [facility] [place] LUNG SCREEN WO IVCON [...] HISTORY Diagnosis Date Acute pancreatitis 2010 Maynor Curz Alcohol use disorder 01/18/2016 [facility] An[facility]i [facility] Anxiety 12/14/2015 Bipolar affective disorder, currently active ([facility]) 07/2016 Dr. Angie Jones, [facility] Chronic bronchitis ([facility]) 07/26/2016 Closed skull fracture ([facility]) 1994 [facility] Coronary artery disease DDD (degenerative disc disease), cervical Endometriosis 2007 Essential hypertension 12/14/2015 GERD (gastroesophageal reflux disease) 03/13/2019 History of colon polyps History of gastric ulcer 12/14/2015 HLD (hyperlipidemia) Injury of left facial nerve 1994 PAD (peripheral artery disease) ([facility]) 09/28/2019 Recurrent major depression in partial remission ([facility]) 12/14/2015 S/P drug eluting coronary stent placement 08/25/2021 LAD and Dg2 Spinal stenosis ALLERGIES No Known Allergies albuterol HFA (VENTOLIN HFA) 90 mcg/actuation inhaler Inhale 2 Puffs as instructed every 6 hours as needed for wheezing/shortn ess of breath. hdjgvlmpnac-buybzqnhy-dfzeutor (TRELEGY ELLIPTA) 200-6 2.5-25 mcg inhalation powder [...] included)... CNPN on 11-20-2022 CNPN Telephone (INTMWS) [facility] VINCE KOENIG ([id number]) 1955 [facility] Date Time Provider Department 11/20/22 ULISES HERMOSILLO During your visit today, we recorded the following inf ormation about you: Christina Diamond Greco LPN 11/20/2022 10:40 AM Signed Pt called and reports she went to [facility] ER last week for difficulty breathing and [...] tablets by mouth daily at bedtime. - qjpwiubkffg-olpfbqyrj-ewriflba (TRELEGY ELLIPT A) 200-62.5-25 mcg inhalation powder [...] 3-5 minutes, none*201807/07/2020 PAD (peripheral artery disease) ([facility]) [I73.9] 09/28/20 19 Anxiety and depression (more content not included)... .Auto Diff on 10-26-2022 Basophil, Absolute 0.1 10 3/mcL Normal 0.0-0.2 [facility] ([place]) Comment on above: Performed By: #### TROPHS, G FR, CMP, PBNP #### [address] [place], [place] [address] Basophils/100 WBC (Bld) 1.6 % Normal 0.0-2.5 [facility] ([place]) Comment on above: Performed By: #### TROPHS, G FR, CMP, PBNP #### [address] [place], [place] [address] Eosinophil, Absolute 0.2 10 3/mcL Normal 0.0-0.4 [facility] ([place]) Comment on above: Performed By: #### TROPHS, G FR, CMP, PBNP #### [address] [address] Eosinophils/100 WBC (Bld) 2.3 % Normal 0.0-7.0 [facility] ([place] Comment on above: Performed By: #### TROPHS, G FR, CMP, PBNP #### [address] [address] Lymphocyte, Absolute 2.1 10 3/mcL Normal 0.8-3.9 [facility] ([place] Comment on above: Performed By: #### TROPHS, G FR, CMP, PBNP #### [address] [address] Lymphocytes/100 WBC (Bld) 29.5 % Normal 10.0-50.0 [facility] ([place] Comment on above: Performed By: #### TROPHS, G FR, CMP, PBNP #### [address] [address] Monocyte, Absolute 0.6 10 3/mcL Normal 0.2-1.0 [facility] ([place] Comment on above: Performed By: #### TROPHS, G FR, CMP, PBNP #### [address] [address] Monocytes/100 WBC (Bld) 8.6 % Normal 1.7-13.0 [facility] ([place] Comment on above: Performed By: #### TROPHS, G FR, CMP, PBNP #### [address] [address] Neutrophils/100 WBC (Bld) 58.0 % Normal 37.0-80.0 [facility] ([place] Comment on above: Performed By: #### TROPHS, G FR, CMP, PBNP #### [address] [address] .GFR on 10-26-2022 GFR 100 ml/min/1.73sqm Normal [facility] ([place]) Comment on above: Result Comment: GFR Population mean for Afri can Peruvian, Non- Americans Ages 20-29 = 116 mL/min/1.73 [...] #### TROPHS, G FR, CMP, PBNP #### [address] [address] GFR Non- 82 ml/min/1.73sqm Normal [facility] ([place]) Comment on above: Result Comment: GFR Population mean for Afri can Peruvian, Non- Americans Ages 20-29 = 116 mL/min/1.73 [...] #### TROPHS, G FR, CMP, PBNP #### [address] [address] .MDW on 10-26-2022 Monocyte Distribution Width 17.60 Normal 0.00-20.00 [facility] ([place] Comment on above: Result Comment: For ED adult patients suspected of sepsis, MDW<=20.0 does not rule out sepsis or risk of sepsis Performed By: #### TROPHS, G FR, CMP, PBNP #### [address] [address] .NEUABS on 10-26-2022 Neutrophil, Absolute 4.1 10 3/mcL Normal 2.9-6.2 [facility] ([place] Comment on above: Performed By: #### Gustavo PRUETT FR, CMP, PBNP #### [address] [address] CBC on 10-26-2022 Erythrocyte distribution width 17.6 % High 11.5-14.5 [facility] ([place] (RBC) [Ratio] Comment on above: Performed By: #### Gustavo PRUETT, CMP, PBNP #### [place] [address] Hematocrit (Bld) [Volume 39.9 % Normal 37.0-47.0 [facility] ([place]) fraction] Comment on above: Performed By: #### Gustavo PRUETT, CMP, PBNP #### [address] [address] Hgb 13.3 G/dL Normal 12.0-16.0 [facility] ([place] Comment on above: Performed By: #### Gustavo PRUETT, CMP, PBNP #### [address] [address] MCH (RBC) [Entitic mass] 32.2 pg High 27.0-31.2 [facility] ([place] Comment on above: Performed By: #### Gustavo PRUETT FR, CMP, PBNP #### [address] [address] MCHC 33.4 G/dL Normal 33.0-37.0 [facility] ([place] Comment on above: Performed By: #### Gustavo PRUETT FR, CMP, PBNP #### [address] [address] MCV (RBC) [Entitic vol] 96.4 fL High 80.0-94.0 [facility] ([place] Comment on above: Performed By: #### TROPHS, G FR, CMP, PBNP #### [address] [address] Platelet 387 10 3/mcL Normal 130-400 [facility] ([place] Comment on above: Performed By: #### TROPHS, G FR, CMP, PBNP #### [address] [address] Platelet mean volume (Bld) 7.1 fL Low 7.4-10.4 [facility] ([place]) [Entitic vol] Comment on above: Performed By: #### JOSE JS, G FR, CMP, PBNP #### [address] [address] RBC 4.14 10 6/mcL Low 4.20-5.40 [facility] ([place] Comment on above: Performed By: #### JOSE JS G FR, CMP, PBNP #### [address] [address] WBC 7.1 10 3/mcL Normal 4.6-10.8 [facility] ([place] Comment on above: Performed By: #### JOSE JS G FR, CMP, PBNP #### [address] [address] CMP on 10-26-2022 Albumin Level 3.3 G/dL Low 3.4-4.8 [facility] ([place] Comment on above: Performed By: #### JOSE JS, G FR, CMP, PBNP #### [address] [address] Albumin/Globulin [Mass ratio] 0.9 {ratio} Low 1.1-2.5 [facility] ([place] Comment on above: Performed By: #### JOSE JS, G FR, CMP, PBNP #### [address] [address] ALP [Catalytic activity/Vol] 83 U/L Normal 40-135 [facility] ([place] Comment on above: Performed By: #### JOSE JS, G FR, CMP, PBNP #### [address] [address] ALT [Catalytic activity/Vol] 29 U/L Normal 14-59 [facility] ([place] Comment on above: Performed By: #### Gustavo PRUETT, CMP, PBNP #### [address] [address] AST [Catalytic activity/Vol] 21 U/L Normal 10-40 [facility] ([place] Comment on above: Performed By: #### Gustavo PRUETT FR, CMP, PBNP #### [address] [address] Bili Total 0.1 mg/dL Low 0.2-1.0 [facility] ([place] Comment on above: Result Comment: Use of this assay is not recommended for patients undergoing treatment with eltrombopag d ue to the potential for falsely elevated results. Performed By: #### Gustavo PRUETT, CMP, PBNP #### [address] [address] BUN/Creatinine Ratio 14 ratio Normal 7-27 [facility] ([place] Comment on above: Performed By: #### Gustavo PRUETT, CMP, PBNP #### [address] [address] Calcium [Mass/Vol] 8.5 mg/dL Normal 8.4-10.2 [facility] ([place]) Comment on above: Performed By: #### FLYNN G FR, CMP, PBNP #### [address] [address] Chloride [Moles/Vol] 104 mmol/L Normal 98-107 [facility] ([place] Comment on above: Performed By: #### FLYNN G FR, CMP, PBNP #### [address] [address] CO2 [Moles/Vol] 28 mmol/L Normal 23-31 [facility] ([place] Comment on above: Performed By: #### JOSE JS G FR, CMP, PBNP #### [address] [address] Creatinine [Mass/Vol] 0.71 mg/dL Normal 0.55-1.02 [facility] ([place]) Comment on above: Performed By: #### Gustavo PRUETT, CMP, PBNP #### [address] [address] Electrolyte Balance 8.0 mEq/L Normal 4.0-15.0 [facility] ([place] Comment on above: Performed By: #### Gustavo PRUETT, CMP, PBNP #### [address] [address] Globulin 3.5 G/dL Normal [facility] ([place] Comment on above: Performed By: #### Gustavo PRUETT, CMP, PBNP #### [address] [address] Glucose [Mass/Vol] 88 mg/dL Normal 80-115 [facility] ([place] Comment on above: Performed By: #### Gustavo PRUETT, CMP, PBNP #### [address] [address] Potassium [Moles/Vol] 4.5 mmol/L Normal 3.5-5.1 [facility] ([place] Comment on above: Performed By: #### Gustavo PRUETT, CMP, PBNP #### [address] [address] Sodium [Moles/Vol] 140 mmol/L Normal 136-145 [facility] ([place] Comment on above: Performed By: #### Gustavo PRUETT, CMP, PBNP #### [address] [address] Total Protein 6.8 G/dL Normal 6.4-8.2 [facility] ([place] Comment on above: Performed By: #### Gustavo PRUETT, CMP, PBNP #### [address] [address] Urea nitrogen [Mass/Vol] 10 mg/dL Normal 7-18 [facility] [place] Comment on above: Performed By: #### Gustavo PRUETT FR, CMP, PBNP #### [address] [place], [place] [address] COVD19 on 10-26-2022 SARS-CoV-2 (COVID-19) RNA Negative Normal Negative [facility] ([place] IVANA+probe Ql (Unsp spec) Comment on above: Performed By: #### Gustavo PRUETT FR, CMP, PBNP #### [address] [place], [place] [address] SARS-CoV-2 (COVID-19) RNA IVANA+probe Ql Normal [facility] ([place] (Unsp spec) Comment on above: Result Comment: [...] #### FLYNN G FR, CMP, PBNP #### [address] [place], [place] [address] FLURSV on 10-26-2022 Flu A PCR (AO) Negative Normal Negative [facility] ([place]) Comment on above: Result Comment: Positive Res [...] virus (RSV) nucleic acid in nasopharyngeal swab (GRAVEL HAULER) specimens from patients with signs and symptoms of respiratory infection in conjunction with clinical and laborato ry findings. The test is int ended for use as an aid in the differential diagnosis of influenza A virus, influenza B virus, and RSV in humans and is not intended to detect influenza C. Performed By: #### FLYNN G FR, CMP, PBNP #### [facility] [address] [place], [place] [address] Flu B PCR (AO) Negative Normal Negative [facility] ([place]) Comment on above: Result Comment: Positive [...] virus (RSV) nucleic acid in nasopharyngeal swab (GRAVEL HAULER) specimens from patients with signs and symptoms of respiratory infection in conjunction with clinical and laborato ry findings. The test is int ended for use as an aid in the differential diagnosis of influenza A virus, influenza B virus, and RSV in humans and is not intended to detect influenza C. Performed By: #### Gustavo PRUETT, GENE, PAVELNP #### [address] [place], [place] [address] RSV PCR (AO) Negative Normal Negative [facility] ([place] Comment on above: Result Comment: Positive Res [...] virus (RSV) nucleic acid in nasopharyngeal swab (GRAVEL HAULER) specimens from patients with signs and symptoms of respiratory infection in conjunction with clinical and laborato ry findings. The test is int ended for use as an aid in the differential diagnosis of influenza A virus, influenza B virus, and RSV in humans and is not intended to detect influenza C. Performed By: #### Gustavo PRUETT, GENE, PAVELNP #### [address] [place], [place] [address] LABORATORY Ordered By: Mely brown on 10-26-2022 [...] Non- 82 Invalid Interpretation AO Chemistry S Peruvian ml/min/1.73sqm Code Globulin 3.5 G/dL Invalid Interpretation [...] B (Bld) 521 pg/mL High 0-125 [facility] ([place]) [Mass/Vol] Comment on above: Result Comment: NT-proBNP re sults of less than 300 pg/mL effectively rules out acute congestive h eart failure with 99% negative predictive value. Performed By: #### TROPHS, G FR, CMP, PBNP #### [address] [address] TOXSC on 10-26-2022 U Ampheta (AO) Negative [facility] ([place]) Comment on above: Performed By: #### UA, TOXSC #### [address] [address] U Nanci (AO) Negative [facility] ([place]) Comment on above: Performed By: #### UA, TOXSC #### [address] [address] U Heron (AO) Negative [facility] ([place] Comment on above: Performed By: #### UA, TOXSC #### [address] [address] U Cannab (AO) Negative [facility] ([place]) Comment on above: Performed By: #### UA, TOXSC #### [address] [address] U Cocaine (AO) Negative Normal [facility] ([place] Comment on above: Performed By: #### UA, TOXSC #### [address] [address] U Methadone (AO) Negative [facility] ([place]) Comment on above: Performed By: #### UA, TOXSC #### [address] [address] U PCP (AO) Negative Normal [facility] ([place] Comment on above: Performed By: #### UA, TOXSC #### [address] [address] U TCA (AO) Negative Normal [facility] ([place]) Comment on above: Performed By: #### UA, TOXSC #### [address] [address] Urine Opiates (AO) Negative Normal [facility] ([place] Comment on above: Performed By: #### UA, TOXSC #### [address] [address] TROPHS on 10-26-2022 Troponin I High Sensitivity 15.6 ng/L Normal 0.0-51.4 [facility] ([place] Comment on above: Performed By: #### TROPHS, G FR, CMP, PBNP #### [address] [address] UA on 10-26-2022 Color (U) Yellow Normal [facility] ([place] Comment on above: Performed By: #### UA, TOXSC #### [address] [address] Glucose (U) [Mass/Vol] Negative Normal Negative [facility] ([place]) Comment on above: Performed By: #### UA, TOXSC #### [address] [address] Ketones Ql (U) Negative Normal Negative [facility] ([place]) Comment on above: Performed By: #### UA, TOXSC #### [address] [address] UA Appear Clear Normal Clear [facility] ([place] Comment on above: Performed By: #### UA, TOXSC #### [address] [address] UA Blood Negative Normal Negative [facility] ([place] Comment on above: Performed By: #### UA, TOXSC #### Kathi [address] [address] UA Leuk Est Negative Normal Negative [facility] ([place] Comment on above: Performed By: #### UA, TOXSC #### [address] [address] UA Nitrite Negative Normal Negative [facility] ([place] Comment on above: Performed By: #### UA, TOXSC #### [place] [id number] UA pH 5.5 Normal 5.0 - 8.0 [facility] ([place] Comment on above: Performed By: #### UA, TOXSC #### [address] [address] UA Protein Negative Normal Negative [facility] ([place] Comment on above: Performed By: #### UA, TOXSC #### [address] [address] UA Spec Grav <=1.005 Abnormal 1.015-1.025 [facility] ([place] Comment on above: Performed By: #### UA, TOXSC #### [address] [address] UA Specimen Type Not Given Normal [facility] ([place] Comment on above: Performed By: #### UA, TOXSC #### [address] [address] UA Urobilinogen 0.2 E.U./dL Normal 0.2-1.0 [facility] ([place] Comment on above: Performed By: #### UA, TOXSC #### [address] [address] Urobilinogen (U) [Mass/Vol] Negative Normal Negative [facility] ([place] Comment on above: Performed By: #### UA, TOXSC #### [place] [address] XR CHEST 1 VIEW on 10-26-2022 XR CHEST 1 VIEW ORIGINAL Normal [facility] EXAMINATION: ([place]) ONE XRAY VIEW OF THE [...] CNOV Office Visit (VASSWS) [facility][id number] 1955 [facility] Date Time Provider Department 10/02/22 10:00 AM TAWNY SELFS During your visit today, we recorded the following inf ormation about you: Pulse Blood pressure Weight Height 86/minute 155/87 59 kg 1.621 m Tawny Self DO 10/02/2022 10:38 AM Signed This office note has been dictated. Tawny Self DO Referring Provider: ULISES HERMOSILLO [[id number]] Allergies As of Date: 10/02/2022 (No Known Allergies) Date Reviewed: 10/02/2022 Reviewed by: YASSINE Hobson - Fully Assessed Reason for Visit: Established Patient [175] Visit Diagnosis:PAD (peripheral artery disease) ([facility]) [I73.9] Order(s):CONSULT TO VASCULAR SURGERY [9042] Order #: [id number]: 1 PVR LEG [facility] [[id number]] Order #: [id number] FUTU RE Prescriptions as of 10/02/2022 - [...] tablets by mouth daily at bedtime. - rwblylqwsnr-lxmytfpbd-cnehugth (TRELEGY ELLIPT A) 200-62.5-25 mcg inhalation powder [...] 3-5 minutes, none*201807/07/2020 PAD (peripheral artery disease) ([facility]) [I73.9] 09/28/20 19 Anxiety and depression [F41.9, F32.A] 10/06/2019 Hypomagnesemia [E83.42] 10/22/2019 10/23/2019 Asthma [J45.909] 07/07/2020 07/07/2020 Prediabetes [R73.03] 02/04/2021 Chest pain [R07.9] 05/08/2021 Other chest pain [R07.89] 05/08/2021 Stenosis of carotid artery [I65.29] 05/08/2021 Mixed hyperlipidemia [E78.2] 05/08/2021 Abnormal stress test [R94.39] 08/26/2021 Dyspnea on exertion [R06.09] 08/26/2021 Coronary artery disease involving [employer] tolbert*2020 Lung nodule [R91.1] 08/31/2022 Encounter Status:Closed by TAWNY SELF on PVR LEG [facility] on 09-25-2022 PVR Non-Invasive Vascular Laboratory Normal Abdul [facility] Lower Extremity Arterial [...] popliteal disea se. Technologist: Becky Mao RVT, [facility] Ordering physician: TAWNY SELF Interpreting physician: MALINDA Vitale DO Electronically signed by MALINDA Vitale DO on at 5:16:34 PM Final [facility] age : [id number] See Link below for Image [facility] 09-21-[facility]22 CNPN Telephone (VSLWST) [facility] VINCE KOENIG ([id number]) 1955 [facility] Date Time Provider Department 09/21/22 TAWNY [...] CC) [I73.9] Order(s):PVR LEG [facility] [[id number]] Order #: [id number] FUTURE Prescriptions as of 09/24/2022 - nystatin [...] tablets by mouth daily at bedtime. - sbwpswhlbwl-mftkboemr-bufzszfn (TRELEGY ELLIPT A) 200-62.5-25 mcg inhalation powder [...] 3-5 minutes, none*201807/07/2020 PAD (peripheral artery disease) ([facility]) [I73.9] 09/28/20 19 Anxiety and depression [F41.9, F32.A] 10/06/2019 Hypomagnesemia [E83.42] 10/22/2019 10/23/2019 Asthma [J45.909] 07/07/2020 07/07/2020 Prediabetes [R73.03] 02/04/2021 Chest pain [R07.9] 05/08/2021 Other chest pain [R07.89] 05/08/2021 Stenosis of carotid artery [I65.29] 05/08/2021 Mixed hyperlipidemia [E78.2] 05/08/2021 Abnormal stress test [R94.39] 08/26/2021 Dyspnea on exertion [R06.09] 08/26/2021 Coronary artery disease involving [employer] tolbert*2020 Lung nodule [R91.1] 08/31/2022 E (more content not included)... CNPN on 09-19-2022 CNPN Telephone (VASSWS) [facility] VINCE KOENIG ([id number]) 1955 [facility] Time Provider Department 09/19/22 TAWNY SELF [...] tablets by mouth daily at bedtime. - yzefvpqhmjq-lytqnqeik-kjndqhda (TRELEGY ELLIPT A) 200-62.5-25 mcg inhalation powder [...] 3-5 minutes, none*201807/07/2020 PAD (peripheral artery disease) ([facility]) [I73.9] 09/28/20 19 Anxiety and depression [F41.9, F32.A] 10/06/2019 Hypomagnesemia [E83.42] 10/22/2019 10/23/2019 Asthma [J45.909] 07/07/2020 07/07/2020 Prediabetes [R73.03] 02/04/2021 Chest pain [R07.9] 05/08/2021 Other chest pain [R07.89] 05/08/2021 Stenosis of carotid artery [I65.29] 05/08/2021 Mixed hyperlipidemia [E78.2] 05/08/2021 Abnormal stress test [R94.39] 08/26/2021 Dyspnea on exertion [R06.09] 08/26/2021 Coronary artery disease involving [employer] [employer] tolbert*2020 Lung nodule [R91.1] 08/31/2022 Encounter Status:Closed by NEVIN PERAZA on CNOV on 09-05-2022 CNOV Office Visit (INTMWS) [facility] VINCE KOENIG ([id number]) 1955 [facility] Time Provider Department 09/05/22 4:20 PM [...] Hypertension Recurrent Major Depression in Partial Remission ([facility]) Bipolar Affective Disorder, Currently Active ([facility]) History of Alcohol Abuse Chronic bronchitis ([facility]) Spinal Stenosis, Lumbar Region Without Neurogenic Jannette dication Radiculopathy, Lumbar Region Smoker Gerd (Gastroesophageal Reflux Disease) Seasonal Allergies Pad (Peripheral Artery Disease) ([facility]) Anxiety and Depression Prediabetes Chest Pain Other Chest Pain Stenosis of Carotid Artery Mixed Hyperlipidemia Abnormal Stress Test Dyspnea On Exertion Coronary Artery Disease Involving [place] Coronary Talia ry of [place] Heart Without Angina Pectoris Lung Nodule Current [...] tablets by mo uth daily at bedtime. bqoxklbbxuq-nazdzvrhc-mrgqfeed (TRELEGY ELLIPTA) 200-6 2.5-25 mcg inhalation powder [...] Known Allergies) Date Reviewed: 09/05/2022 Reviewed by: Saarnya Link Ma - Fully Assessed Reason for [...] (INTMWS) [facility] VINCE KOENIG ([id number]) 1955 [facility] Date Time Provider Department 08/31/22 1:20 PM OLDER, OLY INTMWS During your visit today, we recorded the following inf ormation about you: Pulse Respiration Blood pressure Weight 86/minute 18/minute 125/82 58.5 kg Oly Older, CIVIL LITIGATION ATTORNEY.ENERGY CONSERVATION SPECIALIST 08/31/2022 2:58 PM Signed CC: Patient presents [...] 148/82[manual[ 06/06/2022 173/84 Coronary artery disease involving [employer] coronary talia ry of [employer] heart without angina pectoris Her neurophysiologist with [facility]. She on Plavix and Imdur. Sh e stopped taking ASA because she takes Excedrin a lot and thought it was th e same thing. Chronic bronchitis (HCC) Inspector Line is with [facility]. Last appointm ent in May. Symbicort was stopped and she was started on Trelegy. She reports chronic cough, SOB and wheezing are about the same. Also has home oxygen for as needed use . REVIEW OF SYSTEMS See HPI PAST MEDICAL HISTORY Diagnosis Date Acute pancreatitis 2010 Maynor Cruz Alcohol use disorder 01/18/2016 Dr. Angie Jones, [facility] Anxiety 12/14/2015 Bipolar affective disorder, currently active ([facility]) 07/2016 Dr. Angie Jones, [facility] Chronic bronchitis ([facility]) 07/26/2016 Closed skull fracture ([facility]) 1994 [facility], [facility] Coronary artery disease DDD (degenerative disc disease), cervical Endometriosis 2007 Essential hypertension 12/14/2015 GERD (gastroesophageal reflux disease) 03/13/2019 History of colon polyps History of gastric ulcer 12/14/2015 HLD (hyperlipidemia) Injury of left facial nerve 1994 PAD (peripheral artery disease) ([facility]) 09/28/2019 Recurrent major depression in partial remission ([facility]) 12/14/2015 S/P drug eluting coronary stent placement [...] NERVE DECOMPRESSION AND/REPAIR Left 1989 [facility] Patient has no known allergies. MEDICATIONS traZODone (DESYREL) 100 mg tabletTake 2 tablets by mala th daily at bedtime.Disp: 60 tabletRfl: 5 dyzhilmdrej-hsjdngfzz-bzrcaojd (TRELEGY ELLIPTA) 200-6 2.5-25 mcg inhalation powderInhale [...] included)... CNPN on 08-13-2022 CNPN Telephone (INTMWS) [facility] VINCE KOENIG ([id number]) 1955 [facility] Date Time Provider Department 08/13/22 ULISES [...] to attend he can contact them at [phone] Option 3 to arrange. AAMIR Coffman MD 08/16/2022 1:08 AM Signed No thanks. Allergies As of Date: 08/13/2022 (No Known Allergies) Date Reviewed: 07/31/2022 Reviewed by: Karly Garcia APRN.ENERGY CONSERVATION SPECIALIST - [place] vicente Assessed Reason for Visit: Patient Update [1234] Prescriptions as of 08/16/2022 - traZODone (DESYREL) 100 mg tablet Take 2 tablets by mouth daily at bedtime. - jgvodkujkic-dgmczvfir-wfltjagr (TRELEGY ELLIPT A) 200-62.5-25 mcg inhalation powder [...] exertion [R06.09] 08/26/2021 Coronary artery disease involving chick[place] indians-eastern division tolbert*2020 Encounter Status:Closed by ULISES HERMOSILLO on 08/16 JEOVANNY on 08-02-2022 JEOVANNY Telephone (KT) [facility] ([id number]) 1955 [place] Date Time Provider Department 08/02/22 TAWNY SELF During your visit today, we recorded the following inf ormation about you: Nevin Sarah 08/02/2022 12:40 PM Signed Please call patient to schedule testing prior to appt on 08/14/2022 Thank you Allergies As of Date: 08/02/2022 (No Known Allergies) Date Reviewed: 07/31/2022 Reviewed by: Karly Garcia APRN.ENERGY CONSERVATION SPECIALIST - [place] vicente Assessed Reason for Visit: Appointment [186] Prescriptions as of 08/10/2022 - traZODone (DESYREL) 100 mg tablet Take 2 tablets by mouth daily at bedtime. - twlgvffvvlt-hcngtvheg-wtbxtewa (TRELEGY ELLIPT A) 200-62.5-25 mcg inhalation powder [...] exertion [R06.09] 08/26/2021 Coronary artery disease involving chickahominy indians-eastern division tolbert*2020 Encounter Status:Closed by NEVIN SMITH on SUZY on 07-31-2022 CN Office Visit ([facility]) [facility] VINCE KOENIG ([id number]) 1955 [facility] Time Provider Department 07/31/22 2:30 PM SAVANNA KENNY [facility] During your visit today, we recorded the following inf ormation about you: Pulse Blood pressure Weight 89/minute 148/82 60.3 kg Karly Garcia APRN.CNP 07/31/2022 4:53 PM Attested Attestation signed by Savanna Kenny APRN.LINDA a t 07/31/2022 4:53 PM TEACHING PROVIDER (Physician/PA/CIVIL LITIGATION ATTORNEY) NOTE OF PERSONAL INVOLVEMENT IN CARE: I have personally seen and examined the patient and pe rformed the medical decision-making components. I have reviewed the Kaur Loya 's documentation and verified the findings in the n ote as written. Any additions or changes are noted in bold/italics. Signature: Savanna Kenny APRN.ENERGY CONSERVATION SPECIALIST Date: 07/31/2022 Time: 4:53 PM Chief Complaint: Here to review results from LDCT scan dated 07/26/22 fo r LUNG RADS Category 2 finding. History of Present Illness: Vince Koenig is a 67 year old female who is prese nting today for pulmonary nodule follow-up. Nodule was found thr [facility][note 3] lung cancer screening on LDCT. Patient has [...] times but only uses it at ho ks as she does not have a small portable O2 machine due to cost. Current respiratory medication includes T relegy daily and Symbicort daily and prn albuterol- using 2x daily. Per her last OV with her candy cooker helper, Symbicort was advised to be discontinue d as Trelegy was added on. Activity: Does light house work but has to stop in between chores to catch her breath. Gets SOB with showering or with walking from er bedroom to her kitchen. The patient does not require assistance with normal activities of daily living. Modified Medical Research Craig Dyspnea Scale (MMRC) I stop for breath [...] Anxiety 12/14/2015 Bipolar affective disorder, currently active ([facility]) 07/2016 Dr[facility]ie [facility] Chronic bronchitis ([facility]) 07/26/2016 Closed skull fracture ([facility]) 1994 [facility] Coronary artery disease DDD (degenerative disc disease), cervical Endometriosis 2007 Essential hypertension 12/14/2015 GERD (gastroesophageal reflux disease) 03/13/2019 History of colon polyps History of gastric ulcer 12/14/2015 HLD (hyperlipidemia) Injury of left facial nerve 1994 PAD (peripheral artery disease) ([facility]) 09/28/2019 Recurrent major depression in partial remission ([facility]) 12/14/2015 S/P drug eluting coronary stent placement [...] NERVE DECOMPRESSION AND/REPAIR Left 1989 [facility] Family Hx: FAMILY HISTORY Problem Relation Age of Onset Cancer Mother 50 lung cancer Hypertension Mother Cancer Father 50 lung cancer Cancer Sister 61 lung cancer Allergies: ALLERGIES No Known (more content not included)... CT LUNG SCREEN WO IVCON on 07-26-2022 CT LUNG * * *Final Report* * * [facility] DATE OF EXAM: Jul 26 2022 4:27PM Hospital [place] [facility] [place] LUNG SCREEN WO IVCON [...] without contrast. MQ: CTLCS_6 Patient characteristics: * Usvj-lf-Deyjj: 1955; Age at exam: 67 years * Gender: Female * Lung Disease: Asymptomatic (no signs or symptoms of lung disease) * Number of Pack Years: 55 * Current smoker (=0) or Number of Years since Quit: 0 * Ordering provider and NPI: SAVANNA KENNY [id number] * Interpreting radiologist and NPI: Ervin [id number] Exam acquisition parameters: * Exam Date: 07/26/2022 4:27 PM * Site: [facility] * * CT System Transit Operations Supervisor: [employer] * CT System Model: Dual Source * [...] Descending stents in place; Right Coronary mild Plaque Maker (topogram) images: No additional findings. IMPRESSION: LungRADS category: 2 LungRADS modifier: None LungRADS 0 reason: n/a Recommendations: Continue annual screening with LDCT in 12 months. Other actionable findings: Reference: [employer]. Lung CT Screening Repor ting and Data System (Lung-RADS). Available at: http://www.acr.org/Quality-Safety/Resources/LungRADS Die Presser: SRAVANI Transcribe Date/Time: Jul 27 2022 8:04A Dictated by : VEE GAMINO MD This examination was interpreted and the report review ed and electronically signed by: VEE GAMINO MD on Jul 27 2022 8:16AM EST [id number] CNPN on 07-13-2022 CNPN Telephone (VASSMD) [facility] VINCE Burk ([id number]) 1955 [place] Date Time Provider Department 07/13/22 TAWNY SELF During your visit today, we recorded the following inf ormation about you: Nevin Smith 07/13/2022 3:17 PM Signed Called patient to inform she needs testing prior to ap pt 07/17/22 She reports she is having significant pain in her righ t leg. The soonest testing appt amity has available is 07/25. Patient is tentatively [...] the office for other appt options in [place]. Maritza De Los Santos 07/13/2022 3:54 PM Signed Patient called back in regard to message left for her. Informed her that she needs to complete testing first before she has appt wi th Dr. Self. She verbalized understanding. I informed her of when her testing is on 07/26/2022 in [place] and rescheduled her appt with Dr. Self in [place] on 09/11/2022 since that was the soonest available she could go to. She's been added to the waitlist for this appt as well. Thank you. Maritza Galindo [facility] 07/17/2022 2:04 PM Signed Left message to advise appointment with Dr Self has been moved up to August 4ht @ 10:15 in the [place] . Allergies As of Date: 07/13/2022 (No [...] needed f or wheezing/shortness of breath. - reaikjolnxy-wolywatdn-ftyobtaj (TRELEGY ELLIPT A) 200-62.5-25 mcg inhalation powder [...] exertion [R06.09] 08/26/2021 Coronary artery disease involving chickahominy indians-eastern division tolbert*2020 Encounter Status:Closed by NEVIN SMITH on 2 OXIMETRY WITH AMBULATION on [facility] on 07-06-2022 CNPN Telephone ([facility]) [facility] VINCE Burk ([id number]) 1955 [facility] Date Time Provider Department 07/06/22 MARGARET SHRESTHA [facility] During your visit today, we recorded the following inf ormation about you: Margaret Shrestha MD 07/06/2022 11:30 AM Signed Order for oximetry Allergies As of Date: 07/06/2022 (No Known Allergies) Date Reviewed: 06/06/2022 Reviewed by: Zuleika Goetz - Fully Assessed Reason for Visit: Orders [681] Primary Visit Diagnosis:SOB (shortness of breath) [R06 .02] Order(s):OXIMETRY WITH AMBULATION [[id number]] Order #: [id number]: 1 FUTURE Prescriptions as of 07/06/2022 - traZODone (DESYREL) 100 mg tablet Take 2 tablets by mouth daily at bedtime. - albuterol HFA (VENTOLIN HFA) 90 mcg/actuation inhale r Inhale 2 Puffs as instructed every 6 hours as needed f or wheezing/shortness of breath. - ptzsqagpuqh-rjhfefkdk-geljvury (TRELEGY ELLIPT A) 200-62.5-25 mcg inhalation powder [...] exertion [R06.09] 08/26/2021 Coronary artery disease involving chickahominy indians-eastern division tolbert*2020 Encounter Status:Closed by MARGARET SHRESTHA on 07/06/22 CNCO on 06-12-2022 CNCO Letter Text [facility] [place] CNOV on 06-06-2022 CNOV Office Visit ([facility]) [facility] VINCE KOENIG ([id number]) 1955 [facility] Date Time Provider Department 06/06/22 10:30 AM MARGARET SHRESTHA [facility] During your visit today, we recorded the following inf ormation about you: Pulse Blood pressure Weight Height 77/minute 173/84 58 kg 1.621 m Margaret Shrestha MD 06/06/2022 10:48 AM [facility] OFFICE VISIT CONSULT 06/06/2022 Patient Name: Vince Koenig PRIMARY CARE PHYSICIAN: Ulises Hermosillo MD REASON FOR CONSULT: Asthma -COPD overlap syndrome/smok ing REFERRING PHYSICIAN: Savanna Kenny, * My final recommendations will be communicated to the the [facility] care provider by way of the shared medical record for [facility] providers or by letter via US mail for external providers. 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 Moderate reduction in DLCO Oxygen supplementation: 2 L/min MMRC Dyspnea Scale: 0. Not troubled by breathlessness except on strenuous exercise 1. Short of breath when hurrying or walking up a sligh t hill 2. Walks slower than contemporaries on [employer] he level because of breathlessness, or has to stop for breath when walking at own pace 3. Stops for breath after about 100 m or after a few m inutes on the level 4. Too breathless to leave t he house, or breathless when dressing or undressing Environmental/ Occupational Exposure History: Pets: No birds Asbestos: No significant exposure Silica: No significant exposure Huntington: No significant exposure Mold: No significant exposure Hot tub: No significant exposure Fumes: No significant exposure Metal dust: No significant exposure Beryllium: No significant exposure Dust: No significant exposure Medications: No relevant exposure for interstitial hamilton g diseases PAST MEDICAL HISTORY Diagnosis Date - Acute pancreatitis 2010 [facility] - Alcohol use disorder 01/18/2016 Dr[facility]ie [facility] - Anxiety 12/14/2015 - Bipolar affective disorder, currently active ([facility]) 0 01/18/2016 Dr[facility] - Chronic bronchitis ([facility]) 07/26/2016 - Closed skull fracture ([facility]) 1994 [facility] - Coronary artery disease - DDD (degenerative disc disease), cervical - Endometriosis 2007 - Essential hypertension 12/14/2015 - GERD (gastroesophageal reflux disease) 03/13/2019 - History of colon polyps - History of gastric ulcer 12/14/2015 - HLD (hyperlipidemia) - Injury of left facial nerve 1994 - PAD (peripheral artery disease) ([facility]) 09/28/2019 - Recurrent major depression in partial remission ([facility] ) 12/14/2015 - S/P drug eluting coronary [...] DECOMPRESSION AND/REPAIR Left 199 0 [facility] FAMILY HISTORY Problem Relation Age of Onset - Cancer Mother (more content not included)... CNPN on 06-04-2022 LINDAN Telephone (INTMWS) [facility] ([id number][facility] 1955 [facility] Date Time Provider Department 06/04/22 ULISES HERMOSILLO INTMWS During your visit today, we recorded the following inf ormation about you: Jaylyn Caceres RN 06/04/2022 10:11 AM [facility] reports [facility] has received sever al orders for the Aerochamber spacer, electronically signed by Fluoroscope Operator. State s she cannot accept this. Needs an actual prescription with name, address and signature of provider. Please send actual prescription. Fax number [phone]. lOy Smith APRN.CNP 06/04/2022 11:46 AM Signed See phone note from 05/31, this was faxed and then re f axed on 06/04 Oly Smith APRN.LINDA Blackman Ma 06/04/2022 12:50 PM Signed New order printed and faxed. Natalie Blackman Ma Allergies As of Date: 06/04/2022 (No Known Allergies) Date Reviewed: 05/03/2022 Reviewed by: Tracy Ramires APRN.ENERGY CONSERVATION SPECIALIST - Fully Assesse d Reason for Visit: Aerochamber spacer [Other] Primary Visit Diagnosis:Merchandise Flow Associate zay bronchitis, unspecified chronic bronchitis type (HCC) [...] exertion [R06.09] 08/26/2021 Coronary artery disease involving chickahominy indians-eastern division tolbert*2020 Prescriptions ordered this encounter Disp Refills Star t End AEROCHAMBER MV SPACER 1 Ea* 0 06/04/2022 06/04/2022 Class: Print RX Route: Misc Si Device one time only for 1 dose. Encounter Status:Closed by NATALIE BLACKMAN MA on 06/04/22 JEOVANNY on 05-31-2022 JEOVANNY Telephone (INTMWS) [facility] ARYAVINCE Fidencio ([id number]) 1955 [facility] Date Time Provider Department 05/31/22 ULISES HERMOSILLO INTMWS During your visit today, we recorded the following inf ormation about you: Christina Pete RN 05/31/2022 11:09 AM Signed Patient calls and is asking if provider can write orders for patient to have a smaller portable oxygen tank so it is easier for her t o go places. She gets current supplies from [facility]. Please review and advise, AAMIR Diego RN 06/01/2022 1:31 PM Signed Patient calls and is asking about a [facility] for her inhalers. Patient asking if prescription can be sent for inhaler spacer? Pharmacy is [facility]. See Message below in regards to [...] Natalie Mills RN 06/04/2022 9:57 AM Signed [facility] in [place] called in and report they onl y received the second page for the aerochamber spacer. Re-faxed the order to [phone]. Allergies As of Date: 05/31/2022 (No Known Allergies) Date Reviewed: 05/03/2022 Reviewed by: Tracy Ramires APRN.ENERGY CONSERVATION SPECIALIST - Fully Assesse d Reason for Visit: Orders [1] Primary Visit Diagnosis:Merchandise Flow Associate zay bronchitis, unspecified chronic bronchitis type (HCC) [J42] Order(s):AEROCHAMBER SPACER [[id number]] Order #: [id number] Prescriptions as of 06/04/2022 - amLODIPine [...] 3-5 minutes, none*201807/07/2020 PAD (peripheral artery disease) ([facility]) [I73.9] 09/28/20 19 Anxiety and depression [F41.9, F32.A] 10/06/2019 Hypomagnesemia [E83.42] 10/22/2019 10/23/2019 Asthma [J45.909] 07/07/2020 07/07/2020 Prediabetes [R73.03] 02/04/2021 Chest pain [R07.9] 05/08/2021 Other chest pain [R07.89] 05/08/2021 Stenosis of carotid artery [I65.29] 05/08/2021 Mixed hyperlipidemia [E78.2] 05/08/2021 Abnormal stress test [R94.39] 08/26/2021 Dyspnea on exertion [R06.09] 08/26/2021 Coronary artery disease involving chickahominy indians-eastern division tolbert*2020 Encounter Status:Closed by NATALIE BLACKMAN MA on 06/01/22 JEOVANNY on 05-23-2022 LINDAN Telephone (CAWSTR) [facility] CLARISSEVINCE NOVOA ([id number]) 1955 [facility] Date Time Provider Department 05/23/22 TRACY RAMIRES During your visit today, we recorded the following inf ormation about you: Shanelle Toribio RN 05/23/2022 4:51 PM Signed ----- Message from Tracy Ramires APRN.ENERGY CONSERVATION SPECIALIST sent at 7:41 AM EDT ----- Please call patient and notify her echocardiogram reve als stable LV function and no significant valve disease. Thank you! Shanelle Toribio RN 05/23/2022 4:53 PM Signed Attempted to call pt. No answer. Left message for pt. to return call. Please advise of below and close encounter when pt calls back . Thank you. Shanelle Toribio RN [facility] 05/24/2022 10:23 AM Signed Patient returned call and was notified. Allergies As of Date: 05/23/2022 (No Known Allergies) Date Reviewed: 05/03/2022 Reviewed by: Tracy Ramires APRN.ENERGY CONSERVATION SPECIALIST - Fully Assesse d Reason for Visit: [...] 3-5 minutes, none*201807/07/2020 PAD (peripheral artery disease) ([facility]) [I73.9] 09/28/20 19 Anxiety and depression [F41.9, F32.A] 10/06/2019 Hypomagnesemia [E83.42] 10/22/2019 10/23/2019 Asthma [J45.909] 07/07/2020 07/07/2020 Prediabetes [R73.03] 02/04/2021 Chest pain [R07.9] 05/08/2021 Other chest pain [R07.89] 05/08/2021 Stenosis of carotid artery [I65.29] 05/08/2021 Mixed hyperlipidemia [E78.2] 05/08/2021 Abnormal stress test [R94.39] 08/26/2021 Dyspnea on exertion [R06.09] 08/26/2021 Coronary artery disease involving chickahominy indians-eastern division tolbert*2020 Encounter Status:Closed by MAGNUS TORRES on 05/24 CNOV on 05-21-2022 CNOV Office Visit (CARDWS) [facility] VINCE KOENIG ([id number]) 1955 [facility] Date Time Provider Department 05/21/22 3:30 PM ECHOCARDIOGRAM WSTR CARDWS During your visit today, we recorded the following inf ormation about you: Tracy Ramires APRN.ENERGY CONSERVATION SPECIALIST 05/22/2022 7:41 AM Signed Please call patient and notify her echocardiogram reve als stable LV function and no significant valve disease. Thank you! Referring Provider: TRACY RAMIRES [[id number]] Allergies As of Date: 05/21/2022 (No Known Allergies) Date Reviewed: 05/03/2022 Reviewed by: Tracy Ramires APRN.ENERGY CONSERVATION SPECIALIST - Fully Assesse d Visit Diagnosis:DIAZ (dyspnea on exertion) [R06.09] Order(s):MARILYN [[id number]] Order #: [id number]. #:[id number]: 1 Prescriptions as of 05/23/2022 - SYMBICORT [...] exertion [R06.09] 08/26/2021 Coronary artery disease involving chickahominy indians-eastern division tolbert*2020 Encounter Status:Closed by TRACY RAMIRES on 05/23/22 ECHO on 05-21-2022 Echocardiography Echocardiography Report: Transthoracic Echo Normal [facility] Date of service: 05/21/2022 3:26:24 PM [place] ASSEMBLER Ordering physician: TRACY RAMIRES Indication: Shortness of Breath Technologist: Christina Thompson [facility] Interpreting physician: Zaid Tinsley DO PATIENT: Name: MRS. VINCE KOENIG : 1955 Age: 67 years Gender: F History of hypertension, dyslipidemia and coronary art thomas disease. Previous cardiovascular interventions: PCI Primary rhythm: sinus. Height: 165.10 cm BSA: 1.63 m? Weight: 57.61 kg BMI: 21.1 kg/m? Heart rate 78 bpm Technically difficult exam due to body habitus and VASCULAR ULTRASOUND TECHNOLOGIST D/SOB. Color Doppler was utilized t o [...] * * Final * * * CC [facility] age : [id number] [facility] CNOV on 05-11-2022 CNOV Office Visit (INTMWS) [facility] VINCE KOENIG ([id number]) 1955 [place] Date Time Provider Department 05/11/22 1:40 PM ULISES HERMOSILLO INTJaylynWS During your visit today, we recorded the following inf ormation about you: Pulse Respiration Blood pressure Weight 99/minute 24/minute 118/78 58.1 kg Ulises Hermosillo MD 05/11/2022 3:49 PM Signed This note was created using Songtradr. Subjective Patient presents with: Hospital Follow Up [...] Remission (Hcc) Bipolar Affective Disorder, Currently Active ([facility]) History of Alcohol Abuse Chronic bronchitis ([facility]) Spinal Stenosis, Lumbar Region Without Neurogenic Jannette dication Radiculopathy, Lumbar Region Smoker Gerd (Gastroesophageal Reflux Disease) Seasonal Allergies Pad (Peripheral Artery Disease) ([facility]) Anxiety and Depression Prediabetes Chest Pain Other Chest Pain Stenosis of Carotid Artery Mixed Hyperlipidemia Abnormal Stress Test Dyspnea On Exertion Coronary Artery Disease Involving [place] Coronary Talia ry of [place] Heart Without Angina Pectoris Social History Tobacco [...] Basophil, Absolute 0.0 10 3/mcL Normal 0.0-0.3 [facility] ([place]) Comment on above: Performed By: #### Gustavo PRUETT, CMP, PBNP #### [address] [address] Basophils/100 WBC (Bld) 0.1 % Normal 0.0-2.5 [facility] ([place] Comment on above: Performed By: #### Gustavo PRUETT FR, CMP, PBNP #### [address] [address] Eosinophil, Absolute 0.0 10 3/mcL Normal 0.0-0.7 [facility] ([place]) Comment on above: Performed By: #### Gustavo PRUETT FR, CMP, PBNP #### [address] [address] Eosinophils/100 WBC (Bld) 0.0 % Normal 0.0-6.0 [facility] ([place] Comment on above: Performed By: #### Gustavo PRUETT FR, CMP, PBNP #### [address] [address] Lymphocyte, Absolute 0.6 10 3/mcL Low 0.9-4.3 [facility] ([place] Comment on above: Performed By: #### JOSE JS G FR, CMP, PBNP #### [address] [address] Lymphocytes/100 WBC (Bld) 5.1 % Low 20.0-40.0 [facility] ([place] Comment on above: Performed By: #### TROPHS, G FR, CMP, PBNP #### [address] [address] Monocyte, Absolute 0.3 10 3/mcL Normal 0.1-1.4 [facility] ([place]) Comment on above: Performed By: #### TROPHS, G FR, CMP, PBNP #### [address] [address] Monocytes/100 WBC (Bld) 2.4 % Normal 2.0-13.0 [facility] ([place] Comment on above: Performed By: #### TROPHS, G FR, CMP, PBNP #### [address] [address] Neutrophils/100 WBC (Bld) 92.4 % High 50.0-75.0 [facility] ([place] Comment on above: Performed By: #### TROPHS, G FR, CMP, PBNP #### [address] [address] .GFR on 05-05-2022 GFR >60 Normal [facility] ([place]) Comment on above: Result Comment: GFR Population mean for Afri can Peruvian, Non- Americans Ages 20-29 = 116 mL/min/1.73 [...] #### TROPHS, G FR, CMP, PBNP #### [address] [address] GFR Non- >60 Normal [facility] ([place]) Comment on above: Result Comment: GFR Population mean for Afri can Peruvian, Non- Americans Ages 20-29 = 116 mL/min/1.73 [...] By: #### Gustavo PRUETT, CMP, PBNP #### [address] [address] .MDW on 05-05-2022 Monocyte Distribution Width Not performed Normal 0.00-20.00 [facility] ([place]) Comment on above: Result Comment: MDW testing performed only on adult ER patients between the ages of 18-89 ye ars. Performed By: #### Gustavo PRUETT, CMP, PBNP #### [address] [address] .NEUABS on 05-05-2022 Neutrophil, Absolute 10.8 10 3/mcL High 2.3-8.1 [facility] ([place]) Comment on above: Performed By: #### Gustavo PRUETT FR, CMP, PBNP #### [address] [address] BMP on 05-05-2022 BUN/Creatinine Ratio 29.6 ratio High 10.0-22.0 [facility] ([place] Comment on above: Performed By: #### Gustavo PRUETT FR, CMP, PBNP #### [address] [address] Calcium [Mass/Vol] 8.5 mg/dL Low 8.7-10.4 [facility] ([place]) Comment on above: Performed By: #### Gustavo PRUETT FR, CMP, PBNP #### [address] [address] Chloride [Moles/Vol] 106 mmol/L Normal 98-110 [facility] [place] ([place] Comment on above: Performed By: #### Gustavo PRUETT, CMP, PBNP #### [address] [address] CO2 [Moles/Vol] 32 mmol/L Normal 22-32 [facility] ([place]) Comment on above: Performed By: #### Gustavo PRUETT, CMP, PBNP #### [address] [address] Creatinine [Mass/Vol] 0.71 mg/dL Normal 0.50-1.20 [facility] ([place]) Comment on above: Performed By: #### Gustavo PRUETT, CMP, PBNP #### [address] [address] Electrolyte Balance 3.0 mEq/L Low 4.0-15.0 [facility] [place] ([place]) Comment on above: Performed By: #### Gustavo PRUETT, CMP, PBNP #### [address] [address] Glucose [Mass/Vol] 224 mg/dL High 82-115 [facility] ([place]) Comment on above: Performed By: #### Gustavo PRUETT, CMP, PBNP #### [address] [address] Potassium [Moles/Vol] 4.5 mmol/L Normal 3.5-5.0 [facility] ([place]) Comment on above: Performed By: #### Gustavo PRUETT, CMP, PBNP #### [address] [address] Sodium [Moles/Vol] 141 mmol/L Normal 136-145 [facility] ([place]) Comment on above: Performed By: #### FLYNN G FR, CMP, PBNP #### [address] [address] Urea nitrogen [Mass/Vol] 21.0 mg/dL Normal 8.0-22.0 [facility] ([place]) Comment on above: Performed By: #### JOSE JS, G FR, CMP, PBNP #### [address] [address] CBC on 05-05-2022 Erythrocyte distribution width 16.5 % High 11.5-15.5 [facility] [place] ([place]) (RBC) [Ratio] Comment on above: Performed By: #### JOSE JS G FR, CMP, PBNP #### [address] [address] Hematocrit (Bld) [Volume 38.3 % Normal 34.0-46.0 [facility] ([place] fraction] Comment on above: Performed By: #### JOSE JS G FR, CMP, PBNP #### [address] [address] Hgb 12.2 G/dL Normal 12.0-16.0 [facility] [place] ([place] Comment on above: Performed By: #### TROPHS G FR, CMP, PBNP #### [address] [address] MCH (RBC) [Entitic mass] 30.9 pg Normal 27.0-33.0 [facility] [place] Comment [place]: Performed By: #### TROPHS, G FR, CMP, PBNP #### [address] [address] MCHC 32.0 G/dL Normal 32.0-36.0 [facility] [place] ([place] Comment on above: Performed By: #### TROPHS, G FR, CMP, PBNP #### [address] [address] MCV (RBC) [Entitic vol] 96.7 fL Normal 80.0-99.0 [facility] [place] Comment on above: Performed By: #### TROPHS, G FR, CMP, PBNP #### [address] [address] Platelet 285 10 3/mcL Normal 150-450 [facility] [place] ([place] Comment on above: Performed By: #### TROPHS, G FR, CMP, PBNP #### [address] [address] Platelet mean volume (Bld) 8.9 fL Normal 6.6-10.5 [facility] ([place]) [Entitic vol] Comment on above: Performed By: #### JOSE JS, G FR, CMP, PBNP #### [address] [address] RBC 3.96 10 6/mcL Low 4.10-5.30 [facility] [place] ([place] Comment on above: Performed By: #### TROPHS, G FR, CMP, PBNP #### [address] [address] WBC 11.6 10 3/mcL High 4.5-10.8 [facility] [place] ([place] Comment on above: Performed By: #### JOSE JS G FR, CMP, PBNP #### [address] [address] LABORATORY Ordered By: SYSTEM SYSTEM on 05-05-2022 [...] Basophil, Absolute 0.0 10 3/mcL Normal 0.0-0.3 [facility] [place] Comment on above: Performed By: #### TROPHS, G FR, CMP, PBNP #### [address] [address] Basophils/100 WBC (Bld) 0.2 % Normal 0.0-2.5 [facility] [place] Comment on above: Performed By: #### TROPHS, G FR, CMP, PBNP #### [address] [address] Eosinophil, Absolute 0.0 10 3/mcL Normal 0.0-0.7 [facility] [place] [place] Comment on above: Performed By: #### TROPHS, G FR, CMP, PBNP #### [address] [address] Eosinophils/100 WBC (Bld) 0.0 % Normal 0.0-6.0 [facility] [place] Comment on above: Performed By: #### TROPHS, G FR, CMP, PBNP #### [address] [address] Lymphocyte, Absolute 0.6 10 3/mcL Low 0.9-4.3 [facility] [place] Comment on above: Performed By: #### TROPHS, G FR, CMP, PBNP #### [address] [address] Lymphocytes/100 WBC (Bld) 5.0 % Low 20.0-40.0 [facility] [place] Comment on above: Performed By: #### TROPHS, G FR, CMP, PBNP #### [address] [address] Monocyte, Absolute 0.3 10 3/mcL Normal 0.1-1.4 [facility] [place] Comment on above: Performed By: #### TROPHS, G FR, CMP, PBNP #### [address] [address] Monocytes/100 WBC (Bld) 2.4 % Normal 2.0-13.0 [facility] [place] Comment on above: Performed By: #### TROPHS, G FR, CMP, PBNP #### [address] [address] Neutrophils/100 WBC (Bld) 92.4 % High 50.0-75.0 [facility] [place] Comment on above: Performed By: #### TROPHS, G FR, CMP, PBNP #### [address] [address] .GFR on 05-04-2022 GFR >60 Normal [facility] [place] Comment on above: Result Comment: GFR Population mean for Afri can Peruvian, Non- Americans Ages 20-29 = 116 mL/min/1.73 [...] By: #### Gustavo PRUETT, CMP, PBNP #### [address] [address] GFR Non- >60 Normal [facility] [place] Comment [place]: Result Comment: GFR Population mean for Afri can Peruvian, Non- Americans Ages 20-29 = 116 mL/min/1.73 [...] By: #### Gustavo PRUETT, CMP, PBNP #### [address] [address] .MDW on 05-04-2022 Monocyte Distribution Width Not performed Normal 0.00-20.00 [facility] [place] ([place] Comment on above: Result Comment: MDW testing performed only on adult ER patients between the ages of 18-89 ye ars. Performed By: #### Gustavo PRUETT, CMP, PBNP #### [address] [address] .NEUABS on 05-04-2022 Neutrophil, Absolute 10.5 10 3/mcL High 2.3-8.1 [facility] ([place]) Comment on above: Performed By: #### Gustavo PRUETT, CMP, PBNP #### [address] [address] BMP on 05-04-2022 BUN/Creatinine Ratio 24.7 ratio High 10.0-22.0 [facility] [place] ([place] Comment on above: Performed By: #### TROPHS, G FR, CMP, PBNP #### [address] [address] Calcium [Mass/Vol] 8.7 mg/dL Normal 8.7-10.4 [facility] [place] Comment on above: Performed By: #### TROPHS, G FR, CMP, PBNP #### [address] [address] Chloride [Moles/Vol] 108 mmol/L Normal 98-110 [facility] [place] Comment on above: Performed By: #### TROPHS, G FR, CMP, PBNP #### [address] [address] CO2 [Moles/Vol] 30 mmol/L Normal 22-32 [facility] [place] Comment on above: Performed By: #### TROPHS, G FR, CMP, PBNP #### [address] [address] Creatinine [Mass/Vol] 0.85 mg/dL Normal 0.50-1.20 [facility] [place] Comment on above: Performed By: #### TROPHS, G FR, CMP, PBNP #### [address] [address] Electrolyte Balance 3.0 mEq/L Low 4.0-15.0 [facility] [place] Comment on above: Performed By: #### TROPHS, G FR, CMP, PBNP #### [address] [address] Glucose [Mass/Vol] 150 mg/dL High 82-115 [facility] [place] Comment on above: Performed By: #### TROPHS, G FR, CMP, PBNP #### [address] [address] Potassium [Moles/Vol] 4.8 mmol/L Normal 3.5-5.0 [facility] [place] Comment on above: Performed By: #### Gustavo PRUETT FR, CMP, PBNP #### [address] [address] Sodium [Moles/Vol] 141 mmol/L Normal 136-145 [facility] [place] Comment on above: Performed By: #### JOSE JS G FR, CMP, PBNP #### [address] [address] Urea nitrogen [Mass/Vol] 21.0 mg/dL Normal 8.0-22.0 [facility] [place] Comment [place]: Performed By: #### Gustavo PRUETT, CMP, PBNP #### [address] [address] CBC on 05-04-2022 Erythrocyte distribution width 16.6 % High 11.5-15.5 [facility] [place] (RBC) [Ratio] Comment on above: Performed By: #### FLYNN G FR, CMP, PBNP #### [address] [address] Hematocrit (Bld) [Volume 39.9 % Normal 34.0-46.0 [facility] [place] fraction] Comment on above: Performed By: #### TROPHS G FR, CMP, PBNP #### [address] [address] Hgb 12.8 G/dL Normal 12.0-16.0 [facility] [place] Comment on above: Performed By: #### TROPHS G FR, CMP, PBNP #### [address] [address] MCH (RBC) [Entitic mass] 30.8 pg Normal 27.0-33.0 [facility] [place] Comment [place] above: Performed By: #### TROPHS, G FR, CMP, PBNP #### [address] [address] MCHC 32.0 G/dL Normal 32.0-36.0 [facility] ([place] Comment on above: Performed By: #### JOSE JS G FR, CMP, PBNP #### [address] [address] MCV (RBC) [Entitic vol] 96.4 fL Normal 80.0-99.0 [facility] [place] Comment [place] above: Performed By: #### TROPHS G FR, CMP, PBNP #### [address] [address] Platelet 282 10 3/mcL Normal 150-450 [facility] ([place] Comment on above: Performed By: #### JOSE JS G FR, CMP, PBNP #### [address] [address] Platelet mean volume (Bld) 8.9 fL Normal 6.6-10.5 [facility] ([place]) [Entitic vol] Comment on above: Performed By: #### JOSE JS G FR, CMP, PBNP #### [address] [address] RBC 4.14 10 6/mcL Normal 4.10-5.30 [facility] ([place] Comment on above: Performed By: #### TROPHS, G FR, CMP, PBNP #### [address] [address] WBC 11.4 10 3/mcL High 4.5-10.8 [facility] ([place] Comment on above: Performed By: #### TROPHS, G FR, CMP, PBNP #### [address] [address] LABORATORY Ordered By: SYSTEM SYSTEM on 05-04-2022 [...] Absolute 0.1 10 3/mcL Normal 0.0-0.3 Kathi [facility] [place]) Comment on above: Performed By: #### FLYNN G FR, CMP, PBNP #### [address] [address] Basophils/100 WBC (Bld) 0.7 % Normal 0.0-2.5 [facility] [place] Comment [place] above: Performed By: #### TROPHS, G FR, CMP, PBNP #### [address] [address] Eosinophil, Absolute 0.0 10 3/mcL Normal 0.0-0.7 [facility] ([place] Comment on above: Performed By: #### TROPHS, G FR, CMP, PBNP #### [address] [address] Eosinophils/100 WBC (Bld) 0.3 % Normal 0.0-6.0 [facility] [place] Comment [place] above: Performed By: #### TROPHS, G FR, CMP, PBNP #### [address] [address] Lymphocyte, Absolute 2.3 10 3/mcL Normal 0.9-4.3 [facility] ([place]) Comment on above: Performed By: #### TROPHS, G FR, CMP, PBNP #### [address] [address] Lymphocytes/100 WBC (Bld) 25.2 % Normal 20.0-40.0 [facility] [place] Comment [place] above: Performed By: #### TROPHS, G FR, CMP, PBNP #### [address] [address] Monocyte, Absolute 1.0 10 3/mcL Normal 0.1-1.4 [facility] [place] Comment on above: Performed By: #### TROPHS, G FR, CMP, PBNP #### [address] [address] Monocytes/100 WBC (Bld) 10.8 % Normal 2.0-13.0 [facility] [place] Comment on above: Performed By: #### TROPHS, G FR, CMP, PBNP #### [address] [address] Neutrophils/100 WBC (Bld) 63.0 % Normal 50.0-75.0 [facility] [place] Comment [place] above: Performed By: #### TROPHS, G FR, CMP, PBNP #### [address] [address] .GFR on 05-03-2022 GFR Non- >60 Normal [facility] [place] Comment [place]: Result Comment: GFR Population mean for Afri can Peruvian, Non- Americans Ages 20-29 = 116 mL/min/1.73 [...] #### TROPHS, G FR, CMP, PBNP #### [address] [address] GFR >60 Normal [facility] ([place] Comment on above: Result Comment: GFR Population mean for Afri can Peruvian, Non- Americans Ages 20-29 = 116 mL/min/1.73 [...] #### TROPHS, G FR, CMP, PBNP #### [address] [address] .MDW on 05-03-2022 Monocyte Distribution Width Not performed Normal 0.00-20.00 [facility] [place] Comment on above: Result Comment: MDW testing performed only on adult ER patients between the ages of 18-89 ye ars. Performed By: #### JOSE JS G FR, CMP, PBNP #### [address] [address] .NEUABS on 05-03-2022 Neutrophil, Absolute 5.6 10 3/mcL Normal 2.3-8.1 [facility] ([place] Comment on above: Performed By: #### JOSE JS G FR, CMP, PBNP #### [address] [address] BMP on 05-03-2022 BUN/Creatinine Ratio 17.9 ratio Normal 10.0-22.0 [facility] ([place] Comment on above: Performed By: #### FLYNN G FR, CMP, PBNP #### [address] [address] Calcium [Mass/Vol] 8.7 mg/dL Normal 8.7-10.4 [facility] [place] Comment on above: Performed By: #### FLYNN G FR, CMP, PBNP #### [address] [address] Chloride [Moles/Vol] 110 mmol/L Normal 98-110 [facility] [place] Comment on above: Performed By: #### TROPHS G FR, CMP, PBNP #### [address] [address] CO2 [Moles/Vol] 28 mmol/L Normal 22-32 [facility] [place] Comment [place] above: Performed By: #### TROPHS G FR, CMP, PBNP #### [address] [address] Creatinine [Mass/Vol] 0.84 mg/dL Normal 0.50-1.20 [facility] ([place] Comment on above: Performed By: #### TROPHS G FR, CMP, PBNP #### [address] [address] Electrolyte Balance 6.0 mEq/L Normal 4.0-15.0 [facility] ([place] Comment on above: Performed By: #### Gustavo PRUETT, CMP, PBNP #### [address] [address] Glucose [Mass/Vol] 96 mg/dL Normal 82-115 [facility] [place] Comment on above: Performed By: #### Gustavo PRUETT, CMP, PBNP #### [address] [address] Potassium [Moles/Vol] 4.5 mmol/L Normal 3.5-5.0 [facility] ([place] Comment on above: Performed By: #### Gustavo PRUETT, CMP, PBNP #### [address] [address] Sodium [Moles/Vol] 144 mmol/L Normal 136-145 [facility] [place] Comment on above: Performed By: #### Gustavo PRUETT, CMP, PBNP #### [address] [address] Urea nitrogen [Mass/Vol] 15.0 mg/dL Normal 8.0-22.0 [facility] [place] Comment [place]: Performed By: #### Gustavo PRUETT, CMP, PBNP #### [address] [address] CBC on 05-03-2022 Erythrocyte distribution width 16.3 % High 11.5-15.5 [facility]) (RBC) [Ratio] Comment on above: Performed By: #### Gustavo PRUETT, CMP, PBNP #### [address] [address] Hematocrit (Bld) [Volume 40.5 % Normal 34.0-46.0 [facility] [place] fraction] Comment on above: Performed By: #### FLYNN G FR, CMP, PBNP #### [address] [address] Hgb 13.2 G/dL Normal 12.0-16.0 [facility] ([place] Comment on above: Performed By: #### TROPHS, G FR, CMP, PBNP #### [address] [address] MCH (RBC) [Entitic mass] 31.4 pg Normal 27.0-33.0 [facility] [place] Comment [place] above: Performed By: #### TROPHS, G FR, CMP, PBNP #### [address] [address] MCHC 32.6 G/dL Normal 32.0-36.0 [facility] ([place] Comment on above: Performed By: #### TROPHS, G FR, CMP, PBNP #### [address] [address] MCV (RBC) [Entitic vol] 96.1 fL Normal 80.0-99.0 [facility] [place] Comment [place] above: Performed By: #### TROPHS, G FR, CMP, PBNP #### [address] [address] Platelet 290 10 3/mcL Normal 150-450 [facility] ([place] Comment on above: Performed By: #### TROPHS, G FR, CMP, PBNP #### [address] [address] Platelet mean volume (Bld) 8.9 fL Normal 6.6-10.5 [facility] ([place] [Entitic vol] Comment on above: Performed By: #### TROPHS, G FR, CMP, PBNP #### [address] [address] RBC 4.21 10 6/mcL Normal 4.10-5.30 [facility] ([place] Comment on above: Performed By: #### TROPHS, G FR, CMP, PBNP #### [address] [address] WBC 8.9 10 3/mcL Normal 4.5-10.8 [facility] ([place] Comment on above: Performed By: #### TROPHS, G FR, CMP, PBNP #### [place] [address] [place], [place] [address] LABORATORY Ordered By: SYSTEM SYSTEM o n [...] Magnesium [Mass/Vol] 1.8 mg/dL Normal 1.6-2.4 [facility] [place] Comment on above: Performed By: #### TROPHS G FR, CMP, PBNP #### [address] [address] .Auto Diff on 05-02-2022 Basophil, Absolute 0.1 10 3/mcL Normal 0.0-0.2 [facility] [place] Comment on above: Performed By: #### TROPHS, G FR, CMP, PBNP #### [address] [address] Basophils/100 WBC (Bld) 0.9 % Normal 0.0-2.5 [facility] [place] Comment on above: Performed By: #### TROPHS, G FR, CMP, PBNP #### [address] [address] Eosinophil, Absolute 0.1 10 3/mcL Normal 0.0-0.4 [facility] ([place] Comment on above: Performed By: #### TROPHS, G FR, CMP, PBNP #### [address] [address] Eosinophils/100 WBC (Bld) 0.8 % Normal 0.0-7.0 [facility] [place] Comment on above: Performed By: #### TROPHS, G FR, CMP, PBNP #### [address] [address] Lymphocyte, Absolute 2.1 10 3/mcL Normal 0.8-3.9 [facility] ([place] Comment on above: Performed By: #### TROPHS, G FR, CMP, PBNP #### [address] [address] Lymphocytes/100 WBC (Bld) 16.7 % Normal 10.0-50.0 [facility] [place] Comment [place] above: Performed By: #### TROPHS, G FR, CMP, PBNP #### [address] [address] Monocyte, Absolute 0.9 10 3/mcL Normal 0.2-1.0 [facility] ([place] Comment on above: Performed By: #### TROPHS, G FR, CMP, PBNP #### [address] [address] Monocytes/100 WBC (Bld) 7.0 % Normal 1.7-13.0 [facility] [place] Comment on above: Performed By: #### TROPHS, G FR, CMP, PBNP #### [address] [address] Neutrophils/100 WBC (Bld) 74.6 % Normal 37.0-80.0 [facility] [place] Comment on above: Performed By: #### TROPHS G FR, CMP, PBNP #### [address] [address] .GFR on 05-02-2022 GFR 61 ml/min/1.73sqm Normal [facility] ([place] Comment on above: Result Comment: GFR Population mean for Afri can Peruvian, Non- Americans Ages 20-29 = 116 mL/min/1.73 [...] JS, G FR, CMP, PBNP #### Kathi [address] [address] GFR Non- 50 ml/min/1.73sqm Normal [facility] ([place] Comment on above: Result Comment: GFR Population mean for Afri can Peruvian, Non- Americans Ages 20-29 = 116 mL/min/1.73 [...] JS, G FR, CMP, PBNP #### Kathi [address] [address] .MDW on 05-02-2022 Monocyte Distribution Width 17.05 Normal 0.00-20.00 [facility] ([place] Comment on above: Result Comment: For ED adult patients suspected of sepsis, MDW<=20.0 does not rule out sepsis or risk of sepsis Performed By: #### FLYNN G FR, CMP, PBNP #### Kathi [address] [address] .NEUABS on 05-02-2022 Neutrophil, Absolute 9.4 10 3/mcL High 2.9-6.2 [facility] ([place] Comment on above: Performed By: #### TROPHS, G FR, CMP, PBNP #### Kathi [address] [address] BMP on 05-02-2022 BUN/Creatinine Ratio 9 ratio Normal 7-27 [facility] ([place] Comment on above: Performed By: #### TROPHS, G FR, CMP, PBNP #### [address] [address] Calcium [Mass/Vol] 8.8 mg/dL Normal 8.4-10.2 [facility] ([place] Comment on above: Performed By: #### Gustavo PRUETT FR, CMP, PBNP #### [address] [address] Chloride [Moles/Vol] 102 mmol/L Normal 98-107 [facility] ([place] Comment on above: Performed By: #### FLYNN G FR, CMP, PBNP #### [address] [address] CO2 [Moles/Vol] 29 mmol/L Normal 23-31 [facility] ([place] Comment on above: Performed By: #### Gustavo PRUETT, CMP, PBNP #### [address] [address] Creatinine [Mass/Vol] 1.09 mg/dL High 0.55-1.02 [facility] ([place] Comment on above: Performed By: #### Gustavo PRUETT, CMP, PBNP #### [address] [address] Electrolyte Balance 7.0 mEq/L Normal 4.0-15.0 [facility] ([place] Comment on above: Performed By: #### FLYNN G FR, CMP, PBNP #### [address] [address] Glucose [Mass/Vol] 194 mg/dL High 80-115 [facility] [place] Comment on above: Performed By: #### TROPHS G FR, CMP, PBNP #### [address] [address] Potassium [Moles/Vol] 4.1 mmol/L Normal 3.5-5.1 [facility] ([place] Comment on above: Performed By: #### FLYNN G FR, CMP, PBNP #### [address] [address] Sodium [Moles/Vol] 138 mmol/L Normal 136-145 [facility] [place] Comment on above: Performed By: #### TROPHS, G FR, CMP, PBNP #### [address] [address] Urea nitrogen [Mass/Vol] 10 mg/dL Normal 7-18 [facility] [place] Comment [place]: Performed By: #### TROPHS, G FR, CMP, PBNP #### [address] [address] CBC on 05-02-2022 Erythrocyte distribution width 17.0 % High 11.5-14.5 [facility] ([place] (RBC) [Ratio] Comment on above: Performed By: #### TROPHS, G FR, CMP, PBNP #### [address] [address] Hematocrit (Bld) [Volume 45.4 % Normal 37.0-47.0 [facility] [place] fraction] Comment on above: Performed By: #### TROPHS, G FR, CMP, PBNP #### [address] [address] Hgb 14.9 G/dL Normal 12.0-16.0 [facility] ([place] Comment on above: Performed By: #### TROPHS, G FR, CMP, PBNP #### [address] [address] MCH (RBC) [Entitic mass] 31.4 pg High 27.0-31.2 [facility] [place] Comment on above: Performed By: #### TROPHS, G FR, CMP, PBNP #### [address] [address] MCHC 32.9 G/dL Low 33.0-37.0 [facility] ([place] Comment on above: Performed By: #### TROPHS, G FR, CMP, PBNP #### [address] [address] MCV (RBC) [Entitic vol] 95.5 fL High 80.0-94.0 [facility] [place] Comment on above: Performed By: #### Gustavo PRUETT, CMP, PBNP #### [address] [address] Platelet 351 10 3/mcL Normal 130-400 [facility] ([place] Comment on above: Performed By: #### Gustavo PRUETT FR, CMP, PBNP #### [address] [address] Platelet mean volume (Bld) 9.0 fL Normal 7.4-10.4 [facility] ([place] [Entitic vol] Comment on above: Performed By: #### Gustavo PRUETT FR, CMP, PBNP #### [address] [address] RBC 4.76 10 6/mcL Normal 4.20-5.40 [facility] ([place] Comment on above: Performed By: #### Gustavo PRUETT, CMP, PBNP #### [address] [address] WBC 12.6 10 3/mcL High 4.6-10.8 [facility] [place] Comment on above: Performed By: #### Gustavo PRUETT, CMP, PBNP #### [address] [address] COVD19 on 05-02-2022 Date of Onset 20220430 Invalid Interpretation Code [facility] [place] Comment on [place]: Performed By: #### Gustavo PRUETT FR, CMP, PBNP #### [address] [address] Employed in Healthcare No Normal [facility] ([place] Comment on above: Performed By: #### Gustavo PRUETT FR, CMP, PBNP #### [address] [address] First Test No Normal [facility] [place] Comment on above: Performed By: #### Gustavo PRUETT FR, CMP, PBNP #### [address] [address] Hospitalized Yes [facility] ([place] Comment on above: Performed By: #### TROPHS, G FR, CMP, PBNP #### [place] [address] ICU No [facility] [place] Comment on above: Performed By: #### TROPHS, G FR, CMP, PBNP #### [place] [address] [place] [address] Not [facility] ([place] Comment on above: Performed By: #### TROPHS, G FR, CMP, PBNP #### [place] [address] [place] [address] Resides in Congregate Care Setting No [facility] ([place] Comment on above: Performed By: #### TROPHS, G FR, CMP, PBNP #### [place] [address] SARS-CoV-2 (COVID-19) RNA Negative Normal Negative [facility] [place] IVANA+probe Ql (Unsp spec) Comment on above: Performed By: #### TROPHS, G FR, CMP, PBNP #### [place] [address] SARS-CoV-2 (COVID-19) RNA IVANA+probe Ql Normal [facility]) (Unsp spec) Comment on above: Result Comment: [...] By: #### Gustavo PRUETT, GENE, PBNP #### [facility] [address] [place], [place] [address] Symptomatic as Defined by CDC Yes Normal [facility] ([place] Comment on above: Performed By: #### Gustavo PRUETT, CMP, PBNP #### [facility] [address] [place], [place] [address] LABORATORY Ordered By: Gina sandra on 05-02-2022 Blood Glucose Routine [facility] [place] [facility] al Testing Reason (05/02/22 9:38 AM) Work Steven ne: Glucose 156 mg/dL Invalid Interpretation 82 - 115 [facility] [Mass/Vol] Code mg/dL Work Phone: [...] ml/min/1.73sqm Invalid Interpretation Code AO Chemistry S Peruvian PBNP on 05-02-2022 Natriuretic peptide B (Bld) 344 pg/mL High 0-125 [facility] ([place] [Mass/Vol] Comment on above: Result Comment: NT-proBNP re sults of less than 300 pg/mL effectively rules out acute congestive h eart failure with 99% negative predictive value. Performed By: #### Gustavo PRUETT FR, CMP, PBNP #### [address] [address] TROPHS on 05-02-2022 Troponin I High Sensitivity 13.0 ng/L Normal 0.0-51.4 [facility] [place] Comment on above: Performed By: #### Gustavo PRUETT FR, CMP, PBNP #### [address] [address] XR CHEST 1 VIEW on 05-02-2022 XR CHEST 1 VIEW ORIGINAL Normal [facility] EXAMINATION: ([place]) ONE XRAY VIEW OF THE [...] (CAWSTR) Normal [facility] VINCE KOENIG ([id number]) 1955 [facility] Time Provider Department 04/30/22 4:00 PM TRACY RAMIRES During your visit today, we recorded the following inf ormation about you: Pulse Blood pressure Weight 83/minute 138/75 57.6 kg Tracy Ramires APRN.ENERGY CONSERVATION SPECIALIST 05/03/2022 2:36 PM Signed Chief Complaint Patient [...] and requests for refills were sent to [facility]. PAST MEDICAL HISTORY Diagnosis Date - Acute pancreatitis 2010 Maynor Cruz - Alcohol use disorder 01/18/2016 [facility] - Anxiety 12/14/2015 - Bipolar affective disorder, currently active ([facility]) 0 01/18/2016 Dr[facility] - Chronic bronchitis ([facility]) 07/26/2016 - Closed skull fracture ([facility]) 1994 [facility], [facility] - Coronary artery disease - DDD (degenerative disc disease), cervical - Endometriosis 2007 - Essential hypertension 12/14/2015 - GERD (gastroesophageal reflux disease) 03/13/2019 - History of colon polyps - History of gastric ulcer 12/14/2015 - HLD (hyperlipidemia) - Injury of left facial nerve 1994 - PAD (peripheral artery disease) ([facility]) 09/28/2019 - Recurrent major depression in partial remission ([facility] ) 12/14/2015 - S/P drug eluting coronary [...] DECOMPRESSION AND/REPAIR Left 199 0 [facility] Problem Relation Age of Onset [...] included)... CNOV on 03-13-2022 CNOV Office Visit ([facility]) Normal [facility] VINCE KOENIG ([id number]) 1955 [facility] Date Time Provider Department 03/13/22 2:00 PM SAVANNA KENNY [facility] During your visit today, we recorded the following inf ormation about you: Pulse Blood pressure Weight Height 81/minute 157/76 60.9 kg 1.651 m Savanna Kenny, CIVIL LITIGATION ATTORNEY.ENERGY CONSERVATION SPECIALIST 05/30/2022 8:33 AM Baron saravia LUNG SCREENING [...] 50% of waking hrs. Modified Medical Research Craig Dyspnea Scale (MMRC) On level ground I [...] 12/14/2015 - Bipolar affective disorder, currently active ([facility]) 0 01/18/2016 Dr[facility] - Chronic bronchitis ([facility]) 07/26/2016 - Closed skull fracture ([facility]) 1994 [facility], [facility] - Coronary artery disease - DDD (degenerative disc disease), cervical - Endometriosis 2007 - Essential hypertension 12/14/2015 - GERD (gastroesophageal reflux disease) 03/13/2019 - History of colon polyps - History of gastric ulcer 12/14/2015 - HLD (hyperlipidemia) - Injury of left facial nerve 1994 - PAD (peripheral artery disease) ([facility]) 09/28/2019 - Recurrent major depression in partial remission ([facility] ) 12/14/2015 - S/P drug eluting coronary [...] DECOMPRESSION AND/REPAIR Left 199 0 [facility] Problem Relation Age of Onset [...] * * *Final Report* * * Normal [facility] DATE OF EXAM: Oct 10 [...] of fracture of the olecranon p rocess. Die Presser: SRAVANI Transcribe Date/Time: Oct 10 2021 2:44P Dictated by : ERENDIRA PAREDES MD This examination was interpreted and the report review ed and electronically signed by: ERENDIRA PAREDES MD on Oct 10 2021 2:51PM EST [id number] LINDAN on 09-28-2021 LINDAN Telephone (AGCARDPOB) Normal [facility] ARYAVINCE Fidencio ([id number]) 1955 F Medical Date Time Provider Department Center 09/28/21 TRACY RAMIRES During your visit today, we recorded the following inf ormation about you: Mely Trinidad LPN 09/28/2021 10:10 AM Signed ----- Message from Tracy Ramires APRN.ENERGY CONSERVATION SPECIALIST sent at 1 11/28/2020 8:08 AM EST [...] Date Reviewed: 09/28/2021 Reviewed by: Tracy Ramires APRN.ENERGY CONSERVATION SPECIALIST - Fully Assesse d Reason for Visit: [...] exertion [R06.00] 08/26/2021 Coronary artery disease involving [employer] [facility]*2020 Encounter Status:Closed by MELY TRINIDAD on 01/04/22 CBC panel Auto (Bld) on 09-27-2021 Erythrocyte distribution width 15.3 % High 11.5-15.0 [facility] (RBC) [Ratio] Comment on above: Order Comment: Specimen Type : BLOOD SPECIMEN Performed By: #### 80526-6 # ###[facility] LABORATORYCLIA [id number] [address] Hematocrit (Bld) [Volume fraction] 47.2 % High 36.0-4 6.0 [facility] Comment on above: Order Comment: Specimen Type : BLOOD SPECIMEN Performed By: #### 47738-0 # ###[facility] LABORATORYCLIA [id number] [address] Hemoglobin (Bld) [Mass/Vol] 14.5 g/dL Normal 11.5-15.5 [facility] Comment on above: Order Comment: Specimen Type : BLOOD SPECIMEN Performed By: #### 98062-6 # ###[facility] LABORATORYCLIA [id number] [address] MCH (RBC) [Entitic mass] 31.7 pg Normal 26.0-34.0 [facility] Comment on above: Order Comment: Specimen Type : BLOOD SPECIMEN Performed By: #### 34096-2 # ###[facility] LABORATORYCLIA [id number] [facility], [address] MCHC (RBC) [Mass/Vol] 30.7 g/dL Normal 30.5-36.0 [facility] Comment on above: Order Comment: Specimen Type : BLOOD SPECIMEN Performed By: #### 15232-0 # ###[facility] LABORATORYCLIA [id number] [facility], [address] MCV (RBC) [Entitic vol] 103.3 fL High 80.0-100.0 [facility] Comment on above: Order Comment: Specimen Type : BLOOD SPECIMEN Performed By: #### 93270-5 # ###[facility] LABORATORYCLIA [id number] [address] Nucleated RBC (Bld) [#/Vol] 10*3/uL Normal <0.01 [facility] Comment on above: Order Comment: Specimen Type : BLOOD SPECIMEN Performed By: #### 60272-7 # ###[facility] LABORATORYCLIA [id number] [facility], [address] Platelet mean volume (Bld) 10.0 fL Normal 9.0-12.7 [facility] [Entitic vol] Comment on above: Order Comment: Specimen Type : BLOOD SPECIMEN Performed By: #### 75775-0 # ###[facility] LABORATORYCLIA [id number] [facility], [address] Platelets (Bld) [#/Vol] 398 10*3/uL Normal 150-400 [facility] Comment on above: Order Comment: Specimen Type : BLOOD SPECIMEN Performed By: #### 67595-3 # ###[facility] LABORATORYCLIA [id number] [facility], [address] RBC (Bld) [#/Vol] 4.57 10*6/uL Normal 3.90-5.20 [facility] Comment on above: Order Comment: Specimen Type : BLOOD SPECIMEN Performed By: #### 53393-1 # ###[facility] LABORATORYCLIA [id number] [facility], [address] WBC (Bld) [#/Vol] 7.70 10*3/uL Normal 3.70-11.00 [facility] Comment on above: Order Comment: Specimen Type : BLOOD SPECIMEN Performed By: #### 73977-6 # ###[facility] LABORATORYCLIA [id number] [facility], [address] CNOV on 09-27-2021 CNOV Office Visit ([facility]) Normal [facility] VINCE KOENIG ([id number]) 1955 F Medical Date Time Provider Department [...] 12/14/2015 - Bipolar affective disorder, currently active ([facility]) 0 01/18/2016 Dr[facility] - Chronic bronchitis (HCC) 07/26/2016 - Closed skull fracture ([facility]) 1994 [facility], [facility] - Coronary artery disease - DDD (degenerative disc disease), cervical - Endometriosis 2007 - Essential hypertension 12/14/2015 - GERD (gastroesophageal reflux disease) 03/13/2019 - History of colon polyps - History of gastric ulcer 12/14/2015 - HLD (hyperlipidemia) - Injury of left facial nerve 1994 - PAD (peripheral artery disease) ([facility]) 09/28/2019 - Recurrent major depression in partial remission ([facility] ) 12/14/2015 - S/P drug eluting coronary [...] 09-27-2021 Cholesterol [Mass/Vol] 189 mg/dL Normal <200 [facility] Comment on above: Order Comment: Specimen Type : BLOOD SPECIMEN Result Comment: <200 mg/dL, Desirable 200-239 mg/dL, Borderline hi gh >239 mg/dL, High Performed By: #### LIPB #### [facility] CLIA [id number] [address] OF [facility] Cholesterol in HDL [Mass/Vol] 70 mg/dL Normal >39 [facility] Comment on above: Order Comment: Specimen Type : BLOOD SPECIMEN Result Comment: 40-59 mg/dL, Acceptable >59 mg/dL, High: Negative ri sk factor for coronary heart disease <40 mg/dL, Low: Positive ris k factor for coronary heart disease Performed By: #### LIPB #### [facility] CLIA [id number] [address] OF [facility] Cholesterol in LDL [Mass/Vol] 101 mg/dL High <100 [facility] Comment on above: Order Comment: Specimen Type : BLOOD SPECIMEN Result Comment: <100 mg/dL, Optimal 100-129 mg/dL, Near optimal/ above optimal 130-159 mg/dL, Borderline hi gh 160-189 mg/dL, High >189 mg/dL, Very high Secondary prevention optimal LDL Cholesterol levels are recommended to be < 70 mg/dL Performed By: #### LIPB #### [facility] CLIA [id number] [address] Cholesterol in LDL/Cholesterol in 1.44 {ratio} Normal <2.54 [facility] HDL [Mass ratio] [place] Comment on above: Order Comment: Specimen Type : BLOOD SPECIMEN Result Comment: Reference: 1. National Cholesterol Educ ation Program ATP III Guideline At-A-Glance Quick Desk Reference: National Heart, Lung, and Blood [place]. National Institutes of Health. 2001: NIH Publication No. 01-3305. 2. An International Atherosc lerosis Society position paper: global recommendations for the management of dyslipidemia: executive summary, Atherosclerosis. 2014: 232(2):410-413. Performed By: #### LIPB #### [facility] CLIA [id number] [address] Cholesterol in VLDL [Mass/Vol] 18 mg/dL Normal <30 [facility] Comment on above: Order Comment: Specimen Type : BLOOD SPECIMEN Performed By: #### LIPB #### [facility] CLIA [id number] [address] Cholesterol non HDL [Mass/Vol] 119 mg/dL Normal <130 [facility] Comment on above: Order Comment: Specimen Type : BLOOD SPECIMEN Result Comment: <130 mg/dL, Optimal 130-159 mg/dL, Near optimal/ above optimal 160-189 mg/dL, Borderline hi gh 190-219 mg/dL, High >219 mg/dL, Very high Secondary prevention optimal non HDL Cholesterol levels are recommended to be <100 mg/dL Performed By: #### LIPB #### [facility] CLIA [id number] [address] Cholesterol.total/Cholesterol in HDL 2.70 {ratio} Normal <5.1 0 [facility] [Mass ratio] [facility] Comment on above: Order Comment: Specimen Type : BLOOD SPECIMEN Performed By: #### LIPB #### [facility] CLIA [id number] [address] FASTING TIME 12 hrs Normal [facility] Comment on above: Order Comment: Specimen Type : BLOOD SPECIMEN Performed By: #### LIPB #### [facility] CLIA [id number] [address] [facility] Triglyceride [Mass/Vol] 88 mg/dL Normal <150 [facility] Comment on above: Order Comment: Specimen Type : BLOOD SPECIMEN Result Comment: <150 mg/dL, Normal 150-199 mg/dL, Borderline hi gh 200-499 mg/dL, High >499 mg/dL, Very high Performed By: #### LIPB #### [facility] CLIA [id number] [address] CNPN on 09-01-2021 CNPN Telephone (AKPRAD) Normal [facility] VINCE KOENIG ([id number]) 1955 F Medical Date Time Provider Department [...] RAMIRES on 09/01/21 CNPN Telephone (AKCRL) Normal [facility] VINCE KOENIG ([id number]) 1955 F Medical Date Time Provider Department Center 09/01/21 BEE MCGILL During your visit today, we recorded the following inf ormation about you: Bee Mcgill, Counterintelligence Specialist 09/01/2021 10: 44 AM Signed Faxed to [place] based on location. Bee Mcgill, [facility], Cardiopulmonary Rehab [id number] Allergies As of Date: 09/01/2021 (No Known Allergies) Date Reviewed: 08/31/2021 Reviewed by: Babatunde Lomeli MD - Fully Assessed Reason for Visit: Cardiac Rehab [7126] Prescriptions as of 09/01/2021 - oxyCODONE-acetaminophen (PERCOCET) [...] on CNDS on 08-26-2021 CNDS HNO ID: [id number] Normal [facility] Medical Author: Ben Thao MD Center Service: [...] on 08-25-2021 BRIEF OP NOT HNO ID: [id number] Normal [facility] Medical Author: Juan Ramon Pichardo MD Ce [...] LAD portion of the stent 3.7mm, with methodist of blood flow, no residual stenosis. No complications. Recommend: ASA/Plavix Continue other guideline directed medical therapy Juan Ramon Kemp MD Electronics Technician Apprentice of Internal Medicine [facility] Section of Interventional Cardiology [facility] Picker of Structural Heart Disease [address], [address] [place] [address] Facsimile: [phone] Email: [email or web address] Basic metabolic 2000 panel on 1 Anion gap [Moles/Vol] 14 mmol/L Normal 9-18 [facility] Comment on above: Order Comment: Specimen Type : BLOOD SPECIMEN Performed By: #### 23813-9 # ###[facility] LABORATORYCLIA [id number] [place] [address] [place] Calcium [Mass/Vol] 9.2 mg/dL Normal 8.5-10.2 [facility] Comment on above: Order Comment: Specimen Type : BLOOD SPECIMEN Performed By: #### 56347-7 # ###[facility] LABORATORYCLIA [id number] [place] [address] [place] Chloride [Moles/Vol] 102 mmol/L Normal 97-105 [facility] Comment on above: Order Comment: Specimen Type : BLOOD SPECIMEN Performed By: #### 48913-7 # ###[facility] LABORATORYCLIA [id number] [place] [address] [place] CO2 [Moles/Vol] 21 mmol/L Low 22-30 [facility] Comment on above: Order Comment: Specimen Type : BLOOD SPECIMEN Performed By: #### 15680-2 # ###[facility] LABORATORYCLIA [id number] [place] [address] [place] Creatinine [Mass/Vol] 0.72 mg/dL Normal 0.58-0.96 [facility] Comment on above: Order Comment: Specimen Type : BLOOD SPECIMEN Performed By: #### 75809-4 # ###[facility] LABORATORYCLIA [id number] [place] [address] [place] GFR/1.73 sq M.predicted MDRD mL/min/{1.73_m2} Normal [facility] (S/P/Bld) [Vol rate/Area] Ce nter Comment [...] accurately reflect actual GFR. Performed By: #### 85234-6 # ###[facility] [id number] [place] [address] [place] Glucose [Mass/Vol] 92 mg/dL Normal 74-99 [facility] Comment on above: Order Comment: Specimen Type : BLOOD SPECIMEN Result Comment: The [place] Diabetes Association (ADA) provides guidance for cutoff [...] of diabetes. Reference: Standards of [facility] Care in Diabetes 2016, [place] Diabetes Association. Diabetes Care. 2016.39(Suppl 1). Performed By: #### 96891-7 # ###[facility] LABORATORYCLIA [id number] [address] Potassium [Moles/Vol] 4.7 mmol/L Normal 3.7-5.1 [facility] Comment on above: Order Comment: Specimen Type : BLOOD SPECIMEN Performed By: #### 22322-0 # ###[facility] LABORATORYCLIA [id number] [place], [place] [address] [place] [address] Sodium [Moles/Vol] 137 mmol/L Normal 136-144 [facility] Comment on above: Order Comment: Specimen Type : BLOOD SPECIMEN Performed By: #### 35480-9 # ###[facility] LABORATORYCLIA [id number] [address] Urea nitrogen [Mass/Vol] 11 mg/dL Normal 7-21 [facility] Comment on above: Order Comment: Specimen Type : BLOOD SPECIMEN Performed By: #### 88451-1 # ###[facility] LABORATORYCLIA [id number] [address] OF [facility] CBC panel Auto (Bld) on 08-25-2021 Erythrocyte distribution width 15.4 % High 11.5-15.0 [facility] (RBC) [Ratio] Comment on above: Order Comment: Specimen Type : BLOOD SPECIMEN Performed By: #### 57986-1 # ### [facility] CLIA [id number] [address] Hematocrit (Bld) [Volume fraction] 46.7 % High 36.0-4 6.0 [facility] Comment on above: Order Comment: Specimen Type : BLOOD SPECIMEN Performed By: #### 47736-2 # ### [facility] CLIA [id number] [address] Hemoglobin (Bld) [Mass/Vol] 14.9 g/dL Normal 11.5-15.5 [facility] Comment on above: Order Comment: Specimen Type : BLOOD SPECIMEN Performed By: #### 75108-3 # ### [facility] CLIA [id number] [address] MCH (RBC) [Entitic mass] 31.6 pg Normal 26.0-34.0 [facility] Comment on above: Order Comment: Specimen Type : BLOOD SPECIMEN Performed By: #### 25441-3 # ### [facility] CLIA [id number] [address] MCHC (RBC) [Mass/Vol] 31.9 g/dL Normal 30.5-36.0 [facility] Comment on above: Order Comment: Specimen Type : BLOOD SPECIMEN Performed By: #### 87680-4 # ### [facility] CLIA [id number] [address] MCV (RBC) [Entitic vol] 98.9 fL Normal 80.0-100.0 [facility] Comment on above: Order Comment: Specimen Type : BLOOD SPECIMEN Performed By: #### 72737-8 # ### [facility] CLIA [id number] [address] Nucleated RBC (Bld) [#/Vol] 10*3/uL Normal <0.01 [facility] Comment on above: Order Comment: Specimen Type : BLOOD SPECIMEN Performed By: #### 19641-7 # ### [facility] CLIA [id number] [address] Platelet mean volume (Bld) 10.4 fL Normal 9.0-12.7 [facility] [Entitic vol] Comment on above: Order Comment: Specimen Type : BLOOD SPECIMEN Performed By: #### 38133-1 # ### [facility] CLIA [id number] [address] Platelets (Bld) [#/Vol] 375 10*3/uL Normal 150-400 [facility] Comment on above: Order Comment: Specimen Type : BLOOD SPECIMEN Performed By: #### 47191-2 # ### [facility] CLIA [id number] [address] RBC (Bld) [#/Vol] 4.72 10*6/uL Normal 3.90-5.20 [facility] Comment on above: Order Comment: Specimen Type : BLOOD SPECIMEN Performed By: #### 98499-5 # ### [facility] CLIA [id number] [address] WBC (Bld) [#/Vol] 10.76 10*3/uL Normal 3.70-11.00 [facility] Comment on above: Order Comment: Specimen Type : BLOOD SPECIMEN Performed By: #### 47714-1 # ### [facility] CLIA [id number] [address] HISTORY PHYSICAL on 08-25-2021 HISTORY PHYSICAL HNO ID: [id number] Normal [facility] Author: Juan Ramon Pichardo MD Ce [...] CNPN on 08-15-2021 JEOVANNY Telephone (AGCARDPOB) Normal [facility] VINCE KOENIG ([id number]) 1955 F Medical Date Time Provider Department Center 08/15/21 TRACY RAMIRES AGCJO-ANNPORussell During your visit today, we recorded the following inf ormation about you: Suzy Cordero RN 08/15/2021 8:11 AM Signed ----- Message from Tracy Ramires APRN.ENERGY CONSERVATION SPECIALIST sent at 1 7:51 AM EDT ----- [...] type [R07.9] Pre-operative cardiovascular examination [Z01.810] Order(s):CARDIAC OB TECH ORDER [[id number]] Order #: [id number]: 1 CBC [SQCB] Order #: [id number] FUTURE Prescriptions as of 08/16/2021 - oxyCODONE-acetaminophen [...] Physician Interpretation * * * * Stress Orthotic Assistant Report: [facility] Date of service: 08/14/2021 3:00:40 [...] 60 minutes later. See administered doses below. [facility] Date of service: 08/14/2021 3:00:40 [...] evidence of scarring. Final Stress ECG Report: [facility] Date of service: 08/14/2021 3:00:40 PM Ordering physician: TRACY RAMIRES Specialist: Grace Sagastume Handkerchief Maker: Guera Fowler Stress ECG interpreting physician: Fransico [...] 146/80 mmHg. The double product achieved was [address]. Indication: Shortness of breath Medical History and [...] / 80 mmHg Rate Pressure Product (RPP): 28142 St (more content not included)... JEOVANNY on 06-21-2021 JEOVANNY Telephone (AGCARDPOB) Normal [facility] VINCE KOENIG ([id number]) 1955 F Medical Date Time Provider Department Center 06/21/21 TRACY RAMIRES During your visit today, we recorded the following inf ormation about you: Tracy Alan LPN 06/21/2021 8:38 AM Signed ----- Message from Tracy Ramires APRN.ENERGY CONSERVATION SPECIALIST sent at 7:27 AM EDT ----- Please call patient and let her know she has mild non obstructive carotid disease. Thank you! Tracy Alan LPN 06/21/2021 8:40 AM Signed I called and left a message for to call [facility] for test results. PETERSON Grover LPN 06/21/2021 2:57 PM Signed Called and left a voice mail with result s per Tracy Ramires CNP instructions. Instructed patient to call office back with any questi ons. Diana Mahan LPN Allergies As of Date: 06/21/2021 (No Known Allergies) Date Reviewed: 06/14/2021 Reviewed by: Tracy Ramires APRN.ENERGY CONSERVATION SPECIALIST - Fully Assesse d Reason for Visit: [...] on 05-04-2018 Calcium 8.4 mg/dL Normal 8.2-10.1 [facility] Comment on above: Result Comment: Repeated Performed By: #### HEMDF, BM P3 ####[facility] [id number] [place] [address] Chloride 100 mmol/L Normal 98-109 [facility] Comment on above: Result Comment: Repeated Performed By: #### HEMDF, BM P3 ####[employer] [address] [place] [address] Sodium 134 mmol/L Low 135-145 [facility] Comment on above: Result Comment: Repeated Performed By: #### HEMDF, BM P3 ####[employer] [id number] [place] [address] Anion gap 7 Normal [facility] Comment on above: Performed By: #### HEMDF, BM P3 ####[employer] [id number] [place] [address] CO2 27 mmol/L Normal 21-32 [facility] Comment on above: Performed By: #### HEMDF, BM P3 ####[facility] [address] [place] [address] Creatinine 0.79 mg/dL Normal 0.55-1.40 [facility] [employer] [facility] stem Comment on above: Performed By: #### HEMLISETTE BM P3 ####[facility] CenterLightCyber[address] [place] [address] eGFR (black) mL/min/{1.73_m2} Normal >60 [facility] Comment on above: Performed By: #### HEMLISETTE BM P3 ####[facility] [address] [address] eGFR (non-black) mL/min/{1.73_m2} Normal >60 [facility] Comment on above: Result Comment: Source- MDRD equation with creatinine calibration to IDMS(NKDEP) eGFR not isidra mmended for drug dose adjustment Performed By: #### HEMLISETTE BM P3 ####[facility] [address] [address] Glucose mass conc 98 mg/dL Normal 70-100 [facility] Comment on above: Performed By: #### HEMLISETTE BM P3 ####[facility] CenterLight[facility] [place] [address] Potassium molar conc 4.6 mmol/L Normal 3.5-5.1 [facility] Comment on above: Performed By: #### HEMDF BM P3 ####[facility] CenterLight[facility] [place] [place] [address] Urea nitrogen 20 mg/dL Normal 7-25 [facility] yste Comment on above: Performed By: #### HEMLISETTE BM P3 ####[facility] [address] [address] Glucose,Bedside on 05-04-2018 Glucose mass conc 99 mg/dL Normal 70-100 [facility] Comment on above: Result Comment: Test perform ed by glucose meter. Results may be 10%-15% lowerthan serum/plas ma values. (CLIA ID [id number]) Performed By: #### BGLU #### [employer] [address] [address] Hemogram w/ Autodiff on 05-04-2018 Abs Baso Cnt 0.1 10*3/uL Normal 0.0-0.2 [facility] Comment on above: Performed By: #### HEMDF, BM P3 ####[facility] [address]yojde[address] [place] [address] Basophils/100 WBC Auto (Bld) 1.0 % Normal 0.0-2.0 [facility] Comment on above: Performed By: #### HEMDF, BM P3 ####[facility] Efpxoc954 [place] [address] Eosinophils 0.4 10*3/uL Normal 0.0-0.5 [facility] Comment on above: Performed By: #### HEMDF, BM P3 ####[facility] [employer] [address] [place] [address] Eosinophils/100 leukocytes 4.3 % Normal 1.0-6.0 [facility] Comment on above: Performed By: #### HEMDF, BM P3 ####[address] [address] Erythrocyte distribution width Auto Ratio 14.7 % High 11.5-14.5 [facility] (RBC) Comment on above: Performed By: #### HEMDF, BM P3 ####[facility] [employer] [address] [place] [address] Erythrocytes (RBC) 4.10 10*6/uL Normal 3.80-5.20 [facility] Comment on above: Performed By: #### HEMDF, BM P3 ####[address] [address] Granulocytes/100 WBC (Bld) 57.2 % Normal 40.0-80.0 [facility] Comment on above: Performed By: #### HEMDF, BM P3 ####[facility] [employer] Opmgbp195 [place] [address] Hematocrit (HCT) 40.2 % Normal 35.0-47.0 [facility] Comment on above: Performed By: #### HEMDF, BM P3 ####[facility] [employer] [address] [place] [address] Hemoglobin mass conc (Bld) 13.3 g/dL Normal 11.7-16.0 [facility] Comment on above: Performed By: #### HEMLISETTE BM P3 ####[facility] R[address]jru[address] [place] [address] Lymphocytes 2.5 10*3/uL Normal 1.0-4.3 [facility] Sy stem Comment on above: Performed By: #### HEMLISETTE BM P3 ####[facility] Dqxrec778 [place] [address] Lymphocytes/100 leukocytes 27.6 % Normal 20.0-40.0 [facility] Comment on above: Performed By: #### HEMLISETTE BM P3 ####[address] [address] MCH 32.5 pg Normal 26.0-34.0 [facility] Sy stem Comment on above: Performed By: #### HEMLISETTE BM P3 ####[address] [address] MCHC mass conc (RBC) 33.0 % Normal 32.0-36.0 [facility] Comment on above: Performed By: #### HEMLISETTE BM P3 ####[address] [address] MCV 98.2 fL High 79.0-98.0 [facility] Sy stem Comment on above: Performed By: #### HEMLISETTE BM P3 ####[address] [address] Monocytes 0.9 10*3/uL High 0.0-0.8 [facility] Sy stem Comment on above: Performed By: #### HEMLISETTE BM P3 ####[facility] [address]wg137 [place] [address] Monocytes/100 leukocytes 9.9 % Normal 2.0-10.0 [facility] Comment on above: Performed By: #### HEMDF BM P3 ####[address] [address] Neutrophils 5.2 10*3/uL Normal 1.8-7.0 [facility] stem Comment on above: Performed By: #### HEMLISETTE BM P3 ####[address] [address] Platelet mean volume (PMV) 8.8 fL Normal 7.4-10.4 [facility] Comment on above: Performed By: #### HEMLISETTE, BM P3 ####[facility] CenterLightCyber444 [place] [address] Platelets 362 10*3/uL Normal 140-440 [facility] Sy stem Comment on above: Performed By: #### HEMDF, BM P3 ####[facility] Center[facility]444 [place] [address] WBC (Leukocytes) 9.1 10*3/uL Normal 3.6-10.7 [facility] Comment on above: Performed By: #### HEMLISETTE BM P3 ####[facility] Center[facility]444 [place] [address] Ethanol Serum/Plasma on 04-30-2018 Ethanol-Serum/Plasma < 0.010 Normal 0.000-0.010 [facility] Comment on above: Result Comment: NOTE: This r esult is for medical treatment only. Analysis performed using non -forensic procedures. Performed By: #### HEMLISETTE, CM P3, QWAL, ETOH4 ####[employer] [employer] [place] [address] HCG,Urine Qual on 04-30-2018 HCG.beta subunit ( test) Ql (U) Negative Normal Negative [facility] Comment on above: Result Comment: is the most common reason for HCG in urine, althoughchoriocarcino ma, hydatidiform mole, and certain nontropho-blastic malignanci es also result in detectable urinary HCGlevels. Sensitivity = 20m IU/mL. Performed By: #### DR FAISAL ELLISON4, HCGUR ####[employer] [employer] [place], [place] [address] Comp Metabolic Panel on 04-29-2018 Alanine aminotransferase (ALT) 26 U/L Normal 13-69 [facility] Comment on above: Performed By: #### HEMDF, CM P3, QWAL, ETOH4 ####[employer] [place] [address] Alkaline phosphatase (ALP) 65 U/L Normal 38-126 [facility] Comment on above: Performed By: #### HEMDF, CM P3, QWAL, ETOH4 ####[facility] [employer] [id number] [place] Anion gap 10 Normal [facility] Comment on above: Performed By: #### HEMDF, CM P3, QWAL, ETOH4 ####[facility] [id number] [place] Aspartate aminotransferase (AST) 23 U/L Normal 15-46 [facility] Comment on above: Performed By: #### HEMDF, CM P3, QWAL, ETOH4 ####[facility] [employer] [id number] [facility] [place] [place] Calcium 9.1 mg/dL Normal 8.4-10.2 [facility] stem Comment on above: Performed By: #### HEMDF, CM P3, QWAL, ETOH4 ####[facility] [id number] [facility] [place] [place] CO2 24 mmol/L Normal 22-30 [facility] stem Comment on above: Performed By: #### HEMDF, CM P3, QWAL, ETOH4 ####[facility] [employer] [id number] [facility] [place] Glucose mass conc 144 mg/dL High 70-100 [facility] Comment on above: Performed By: #### HEMDF, CM P3, QWAL, ETOH4 ####[facility] [employer] [id number] [facility] [place]FT[address]Y [place] Protein 7.2 g/dL Normal 6.3-8.2 [facility] stem Comment on above: Performed By: #### HEMDF, CM P3, QWAL, ETOH4 ####[facility] [employer] [id number] [facility] [place] Urea nitrogen 14 mg/dL Normal 7-20 [facility] Comment on above: Performed By: #### HEMDF, CM P3, QWAL, ETOH4 ####[facility] [id number] [facility] [place] [place] Bilirubin (total) 0.3 mg/dL Normal 0.2-1.3 [facility] Comment on above: Performed By: #### HEMDF, CM P3, QWAL, ETOH4 ####[employer] [facility] [place] Creatinine 0.74 mg/dL Normal 0.52-1.25 [facility] Comment on above: Performed By: #### HEMDF, CM P3, QWAL, ETOH4 ####[employer] [facility] [place] [place] eGFR (black) mL/min/{1.73_m2} Normal >60 [facility] Comment on above: Performed By: #### HEMDF, CM P3, QWAL, ETOH4 ####[employer] [facility] [place] eGFR (non-black) mL/min/{1.73_m2} Normal >60 [facility] Comment on above: Result Comment: Source- MDRD equation with creatinine calibration to IDMS(NKDEP) eGFR not isidra mmended for drug dose adjustment Performed By: #### HEMDF, CM P3, QWAL, ETOH4 ####[employer] [place], [place] Albumin 4.4 g/dL Normal 3.5-5.0 [facility] stem Comment on above: Performed By: #### HEMDF, CM P3, QWAL, ETOH4 ####[employer] [facility] [place] Chloride 106 mmol/L Normal 98-107 [facility] stem Comment on above: Performed By: #### HEMDF, CM P3, QWAL, ETOH4 ####[employer]. [facility] [place] Potassium molar conc 4.4 mmol/L Normal 3.5-5.1 [facility] Comment on above: Performed By: #### HEMDF, CM P3, QWAL, ETOH4 ####[employer] [place] Sodium 141 mmol/L Normal 137-145 [facility] Comment on above: Performed By: #### HEMDF, CM P3, QWAL, ETOH4 ####[place] [address] [place] [address] Drugs of Abuse on 04-29-2018 Cocaine, Ur Negative Normal [facility] Comment on above: Performed By: #### DR EVELYN ELLISON, HCGUR ####[place] [address] [place] [place] [address] Phencyclidine (PCP), Ur Negative Normal [facility] Comment on above: Result [...] Performed By: #### DR EVELYN ELLISON, HCGUR ####[place] [address] [facility] [place] [place] [place] [address] Methadone, Ur Negative Normal [facility] S ystem Comment on above: Performed By: #### DR EVELYN ELLISON, HCGUR ####[place] [address] [facility] [place] [place] [place] [address] Opiates, Ur Negative Normal [facility] stem Comment on above: Performed By: #### DR EVELYN ELLISON, HCGUR ####[place] [address] [place] [place] [address] Benzodiazepines, Ur Negative Normal [facility] Comment on above: Performed By: #### DR EVELYN ELLISON, HCGUR ####[place] [address] [place] [place] [address] Amphetamines, Ur Negative Normal [facility] Comment on above: Performed By: #### DR EVELYN ELLISON, HCGUR ####[place] [address] [place] [place] [address] Barbiturates, Ur Negative Normal [facility] Comment on above: Performed By: #### DR FAISAL ELLISON4, HCGUR ####[facility] [id number] [facility] [place] [address] Oxycodone/Oxymorphine,Ur Negative Normal [facility] Comment on above: Performed By: #### DR EVELYN ELLISON, HCGUR ####[facility] [id number] [facility] [place] [address] Hemogram w/ Autodiff on 04-29-2018 Abs Baso Cnt 0.1 10*3/uL Normal 0.0-0.2 [facility] stem Comment on above: Performed By: #### HEMDF, CM P3, QWAL, ETOH4 ####[facility] [address] [place] [address] Basophils/100 WBC Auto (Bld) 1.1 % Normal 0.0-2.0 [facility] Comment on above: Performed By: #### HEMDF, CM P3, QWAL, ETOH4 ####[employer] [id number] [place] [address] Eosinophils 0.3 10*3/uL Normal 0.0-0.5 [facility] stem Comment on above: Performed By: #### HEMDF, CM P3, QWAL, ETOH4 ####[employer] [id number] [place] [address] Eosinophils/100 leukocytes 3.3 % Normal 1.0-6.0 [facility] Comment on above: Performed By: #### HEMDF, CM P3, QWAL, ETOH4 ####[facility] [address] [place] [address] Erythrocyte distribution width Auto Ratio 14.8 % High 11.5-14.5 [facility] (RBC) Comment on above: Performed By: #### HEMDF, CM P3, QWAL, ETOH4 ####[facility] [id number] [place] [address] Erythrocytes (RBC) 4.26 10*6/uL Normal 3.80-5.20 [facility] Comment on above: Performed By: #### HEMDF, CM P3, QWAL, ETOH4 ####[address] Granulocytes/100 WBC (Bld) 54.6 % Normal 40.0-80.0 [facility] Comment on above: Performed By: #### HEMDF, CM P3, QWAL, ETOH4 ####[address] Hematocrit (HCT) 42.5 % Normal 35.0-47.0 [facility] Comment on above: Performed By: #### HEMDF, CM P3, QWAL, ETOH4 ####[facility] [employer] [address] Hemoglobin mass conc (Bld) 14.1 g/dL Normal 11.7-16.0 [facility] Comment on above: Performed By: #### HEMDF, CM P3, QWAL, ETOH4 ####[facility] [employer] [address] Lymphocytes 3.1 10*3/uL Normal 1.0-4.3 [facility] Sy stem Comment on above: Performed By: #### HEMDF, CM P3, QWAL, ETOH4 ####[facility] [employer] [address] Lymphocytes/100 leukocytes 32.8 % Normal 20.0-40.0 [facility] Comment on above: Performed By: #### HEMDF, CM P3, QWAL, ETOH4 ####[facility] [employer] [address] MCH 33.1 pg Normal 26.0-34.0 [facility] Sy stem Comment on above: Performed By: #### HEMDF, CM P3, QWAL, ETOH4 ####[facility] [employer] [address] MCHC mass conc (RBC) 33.2 % Normal 32.0-36.0 [facility] Comment on above: Performed By: #### HEMDF, CM P3, QWAL, ETOH4 ####[facility] [id number] [place] [address] MCV 99.8 fL High 79.0-98.0 [facility] Sy stem Comment on above: Performed By: #### HEMDF, CM P3, QWAL, ETOH4 ####[facility] [employer] [id number] [place] [address] Monocytes 0.8 10*3/uL Normal 0.0-0.8 [facility] stem Comment on above: Performed By: #### HEMDF, CM P3, QWAL, ETOH4 ####[facility] [employer] [address] [place] [address] Monocytes/100 leukocytes 8.2 % Normal 2.0-10.0 [facility] Comment on above: Performed By: #### HEMDF, CM P3, QWAL, ETOH4 ####[facility] [employer] [address] [place] [address] Neutrophils 5.2 10*3/uL Normal 1.8-7.0 [facility] stem Comment on above: Performed By: #### HEMDF, CM P3, QWAL, ETOH4 ####[facility] [id number] [place] [address] Platelet mean volume (PMV) 8.5 fL Normal 7.4-10.4 [facility] Comment on above: Performed By: #### HEMDF, CM P3, QWAL, ETOH4 ####[facility] [employer] [address] [place] [address] Platelets 380 10*3/uL Normal 140-440 [facility] stem Comment on above: Performed By: #### HEMDF, CM P3, QWAL, ETOH4 ####[facility] [id number] [place] [address] WBC (Leukocytes) 9.6 10*3/uL Normal 3.6-10.7 [facility] Comment on above: Performed By: #### HEMDF, CM P3, QWAL, ETOH4 ####[facility] [id number] [place] [address] Urinalysis,Macro on 04-29-2018 Bilirubin (direct) Negative Normal Negative [facility] Comment on above: Performed By: #### DR EVELYN ELLISON, HCGUR ####[place] [address] [place], [place] [address] Ketone,Urine Negative Normal Negative [facility] stem Comment on above: Performed By: #### DR EVELYN ELLISON, HCGUR ####[place] [address] [place], [place] [address] Occult Blood,Ur Negative Normal Negative [facility] Comment on above: Performed By: #### DR EVELYN ELLISON, HCGUR ####[place] [address] [place], [place] [address] Specific [place],Urine 1.015 Normal 1.005-1.030 [facility] Comment on above: Performed By: #### DR EVELYN ELLISON, HCGUR ####[place] [address] [place], [place] [address] Total Protein,Urine Negative Normal Negative [facility] Comment on above: Performed By: #### DR EVELYN ELLISON, HCGUR ####[place] [address] [facility], [place] [address] Urine, appearance clear Normal Clear [facility] Comment on above: Performed By: #### DR EVELYN ELLISON, HCGUR ####[place] [address] [facility], [place] [address] Urine, color yellow Normal Lt. Yellow [facility] stem Comment on above: Performed By: #### DR EVELYN ELLISON, HCGUR ####[place] [address] [facility], [place] [address] Urine, glucose presence NORM Normal Negative [facility] Comment on above: Performed By: #### DR EVELYN ELLISON, HCGUR ####[place] [address] [place], [place] [address] Urine, nitrite presence Negative Normal Negative [facility] Comment on above: Performed By: #### DR EVELYN ELLISON, HCGUR ####[place] [address] [place], [place] [address] Urine, pH 5.0 Normal 5.0-8.0 [facility] Sy stem Comment on above: Performed By: #### DR EVELYN ELLISON, HCGUR ####[employer] [place], [place] [address] Urine, urobilinogen NORM Normal 0-1 [facility] Comment on above: Performed By: #### DR EVELYN ELLISON, HCGUR ####[employer] [place], [place] [phone] WBC (Leukocytes) Negative Normal Negative [facility] Comment on above: Performed By: #### DR EVELYN ELLISON, HCGUR ####[employer] [place] [place], [place] [address] hCG Qual Preg on 04-29-2018 hCG Qual Preg QUESTIONABLE Abnormal [facility] S ystem Comment on above: Result Comment: REF RANGE:Ne gative .... < 3Questionable Rpt 48-72 HrPositive ..... 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.LINDA [facility] 14: Work Phone: 01-01-2023 Systolic blood 170 mm[Hg] Oly Older CIVIL LITIGATION ATTORNEY.LINDA [place] 14: pressure Work Phone: 01-01-2023 Body weight 58.06 kg Oly Older CIV[employer] LITIGATION ATTORNEY.LINDA [facility] 13: Work Phone: 01-01-2023 Respiratory rate 22 /min Oly Older CIVIL LITIGATION ATTORNEY.LINDA [facility] 13: Work Phone: 01-01-2023 SaO2% (BldA) [Mass 97 % Oly Older CIVIL LITIGATION ATTORNEY.LINDA [facility] 13:050 fraction] Work Phone: 12-23-2022 Diastolic Blood [address] JOSE ROBERTO COMBS MD [facility] 16:29-0500 Pressure Non-Invasive Work Phone: [facility] 12-23-2022 Heart rate 84 /min DR JOSE ROBERTO COMBS MD [facility] 16:29-0500 [facility] 12-23-2022 Respiratory rate 16 /min DR JOSE ROBERTO COMBS MD [facility] 16:29-0500 [facility] 12-23-2022 Systolic Blood [address] JOSE ROBERTO COMBS MD [facility] 16:290500 Pressure Non-Invasive Work Phone: [facility] 12-23-2022 Diastolic Blood [address] JOSE ROBERTO COMBS MD [facility] 14:43-0500 Pressure Non-Invasive Work Phone: [facility] 12-23-2022 Heart rate 82 /min DR JOSE ROBERTO COMBS MD [facility] 14:43-0500 [facility] 12-23-2022 Respiratory rate 18 /min DR JOSE ROBERTO COMBS MD [facility] 14:43-0500 [facility] 12-23-2022 Systolic Blood [address] JOSE ROBERTO COMBS MD [facility] 14:43-0500 Pressure Non-Invasive Work Phone: [facility] 12-23-2022 Body temperature 96.98 [degF] DR JOSE ROBERTO COMBS MD [facility] 13:50-0500 [facility] 12-23-2022 Diastolic Blood [address] JOSE ROBERTO COMBS MD [facility] 13:50-0500 Pressure Non-Invasive Work Phone: [facility] 12-23-2022 Heart rate 89 /min DR JOSE ROBERTO COMBS MD [facility] 13:50-0500 [facility] 12-23-2022 Respiratory rate 18 /min DR JOSE ROBERTO COMBS MD [facility] 13:50-0500 [facility] 12-23-2022 Systolic Blood [address] JOSE ROBERTO COMBS MD [facility] 13:50-0500 Pressure Non-Invasive Work Phone: [facility] 11-26-2022 Body weight 57.61 kg Salima Asher MD [facility] 12:48-0500 Work Phone: 11-26-2022 Diastolic blood 84 mm[Hg] Salima Asher MD [facility] 12:48-0500 pressure Work Phone: 11-26-2022 Heart rate 98 /min Salima Asher MD [facility] 12:48-0500 Work Phone: 11-26-2022 Respiratory rate 20 /min Salima Asher MD [facility] 12:48-0500 Work Phone: 11-26-2022 SaO2% (BldA) [Mass 99 % Salima Asher MD [facility] 12:48-0500 fraction] Work Phone: 11-26-2022 Systolic blood 120 mm[Hg] Salima Asher MD [place] 12:48-0500 pressure Work Phone: 10-26-2022 Diastolic Blood 93 1 JEOVANY TAYLOR MD [facility] 19:30-0500 Pressure Non-Invasive Work Phone: [facility] 10-26-2022 Heart rate 97 /min JEOVANY TAYLOR MD [facility] 19:30-0500 [facility] 10-26-2022 Respiratory rate 20 /min JEOVANY TAYLOR MD [facility] 19:30-0500 [facility] 10-26-2022 Systolic Blood 167 1 JEOVANY TAYLOR MD [facility] ospital 19:30-0500 Pressure Non-Invasive Work Phone: [facility] 10-26-2022 Diastolic Blood 92 1 JEOVANY TAYLOR [facility] 19:00-0500 Pressure Non-Invasive Work Phone: [facility] 10-26-2022 Heart rate 93 /min JEOVANY TAYLOR MD [facility] p[facility] 19:00-0500 [facility] 10-26-2022 Respiratory rate 18 /min JEOVANY TAYLOR [facility] 19:00-0500 [facility] 10-26-2022 Heart rate 94 /min [facility] 18:37-0500 [facility] 10-26-2022 Respiratory rate 22 /min JEOVANY TAYLOR [facility] 18:37-0500 [facility] 10-26-2022 Diastolic Blood 82 1 JEOVANY TAYLOR [facility] 18:31-0500 Pressure Non-Invasive Work Phone: [facility] 10-26-2022 Systolic Blood 153 1 JEOVANY TAYLOR MD [facility] ospital 18:31-0500 Pressure Non-Invasive Work Phone: [facility] 10-26-2022 Body temperature 96.8 [degF] JEOVANY TAYLOR [facility] 16:25-0500 [facility] 10-02-2022 Body height 162.1 cm [facility] 10:02-0500 Work Phone: 10-02-2022 Body weight 58.97 kg [facility] 10:020500 Work Phone: 10-02-2022 Diastolic blood 87 mm[Hg] Tawny Self DO [facility] 10:050 pressure Work Phone: 10-02-2022 Heart rate 86 /min Tawny Self DO [facility] 10: Work Phone: 10-02-2022 SaO2% (BldA) [Mass 96 % Tawny Self DO [facility] 10:050 fraction] Work Phone: 10-02-2022 Systolic blood 155 mm[Hg] Tawny Self DO [facility] 10:050 pressure Work Phone: 09-05-2022 Body weight 59.88 kg Ulises Hermosillo MD [facility] 16: Work Phone: 09-05-2022 Diastolic blood 82 mm[Hg] Ulises Hermosillo MD [facility] 16: pressure Work Phone: 09-05-2022 Heart rate 95 /min Ulises Hermosillo MD [facility] 16: Work Phone: 09-05-2022 SaO2% (BldA) [Mass 98 % Ulises Hermosillo MD [facility] 16: fraction] Work Phone: 09-05-2022 Systolic blood 132 mm[Hg] Ulises Hermosillo MD [facility] 16: pressure Work Phone: 08-31-2022 Body weight 58.51 kg Oly Older CIVIL LITIGATION ATTORNEY.[facility] 13: Work Phone: 08-31-2022 Diastolic blood 82 mm[Hg] Oly Older CIVIL LITIGATION ATTORNEY.[place] 13: pressure Work Phone: 08-31-2022 Heart rate 86 /min Oly Older CIVIL LITIGATION ATTORNEY.[facility] 13: Work Phone: 08-31-2022 Respiratory rate 18 /min Oly Older CIVIL LITIGATION ATTORNEY.[facility] 13: Work Phone: 08-31-2022 Systolic blood 125 mm[Hg] Oly Older CIVIL LITIGATION ATTORNEY.[facility] 13: pressure Work Phone: 07-31-2022 Body weight 60.33 kg Savanna Kenny APRN.[facility] 14: Work Phone: 07-31-2022 Diastolic blood 82 mm[Hg] Savanna Kenny APRN.[facility] 14: pressure Work Phone: 07-31-2022 Heart rate 89 /min Savanna Kenny APRN.[facility] 14: Work Phone: 07-31-2022 SaO2% (BldA) [Mass 98 % Savanna Kenny APRN.[facility] 14: fraction] Work Phone: 07-31-2022 Systolic blood 148 mm[Hg] Savanna Kenny APRN.[facility] 14: pressure Work Phone: 06-06-2022 Body height 162.1 cm Margaret Shrestha MD [facility] 10: Work Phone: 06-06-2022 Body weight 58 kg Margaret Shrestha MD [facility] 10: Work Phone: 06-06-2022 Diastolic blood 84 mm[Hg] [facility] 10: pressure Work Phone: 06-06-2022 Heart rate 77 /min Margaret Shrestha MD [facility] 10: Work Phone: 06-06-2022 SaO2% (BldA) [Mass 96 % Margaret Shrestha MD [facility] 10: fraction] Work Phone: 06-06-2022 Systolic blood 173 mm[Hg] [facility] 10:110400 pressure Work Phone: 05-11-2022 Body weight 58.06 kg Ulises [facility] 13:400400 Work Phone: 05-11-2022 Diastolic blood 78 mm[Hg] Ulises escobar [facility] 13:400400 pressure Work Phone: 05-11-2022 Heart rate 99 /min Ulises [facility] 13:400400 Work Phone: 05-11-2022 Respiratory rate 24 /min [facility] 13:400400 Work Phone: 05-11-2022 SaO2% (BldA) [Mass 95 % Ulises Hermosillo MD [facility] 13:40040 fraction] Work Phone: 05-11-2022 Systolic blood 118 mm[Hg] Ulises Hermosillo MD [facility] 13:40040 pressure Work Phone: 05-05-2022 Respiratory rate 16 /min DR BETINA GODDARD MD [facility] 10:56-0400 Wo rk 05-05-2022 Body temperature 97.7 [degF] DR BETINA GODDARD MD [facility] 10:480400 Wo rk 05-05-2022 Diastolic blood 75 mm[Hg] DR BETINA GODDARD MD [facility] 10:48-0400 pressure Wo rk 05-05-2022 Heart rate 76 /min DR BETINA GODDARD MD [facility] 10:48-0400 Wo rk 05-05-[address] BETINA GODDARD MD [facility] 10:48-0400 VItal Signs Wo rk 05-05-2022 Respiratory rate 16 /min DR BETINA GODDARD MD [facility] 10:48-0400 Wo rk 05-05-2022 Systolic blood 116 mm[Hg] DR BETINA GODDARD MD [facility] 10:48-0400 pressure Wo rk 05-05-2022 Body temperature 97.88 [degF] DR BETINA GODDARD MD [facility] 07:33-0400 Wo rk 05-05-2022 Diastolic blood 71 mm[Hg] DR BETINA GODDARD MD [facility] 07:33-0400 pressure Wo rk 05-05-2022 Heart rate 71 /min DR BETINA GODDARD MD [facility] 07:33-0400 Wo rk 05-05-2022 Mean blood pressure 88 mm[Hg] DR BETINA GODDARD MD [facility] 07:33-0400 Wo rk 05-05-[address] BETINA GODDARD MD [facility] 07:33-0400 VItal Signs Wo rk 05-05-2022 Respiratory rate 16 /min DR BETINA GODDARD MD [facility] 07:33-0400 Wo rk 05-05-2022 Systolic blood 122 mm[Hg] DR BETINA GODDARD MD [facility] 07:33-0400 pressure Wo rk 05-05-2022 Heart rate 77 /min DR BET[facility] 06:43-0400 Wo rk 05-04-2022 Diastolic blood 64 mm[Hg] DR BETINA GODDARD MD [facility] 23:22-0400 pressure Wo rk 05-04-2022 Systolic blood 124 mm[Hg] DR BETINA GODDARD MD [facility] 23:22-0400 pressure Wo rk 05-04-2022 Body temperature 98.42 [degF] DR BETINA GODDARD MD [facility] 20:59-0400 Wo rk 05-04-2022 Heart rate 73 /min DR BETINA GODDARD MD [facility] 20:59-0400 Wo rk 05-04-2022 Mean blood pressure 92 mm[Hg] DR BETINA GODDARD MD [facility] 14:47-0400 Wo rk 05-04-[address] BETINA GODDARD MD [facility] 14:47-0400 VItal Signs Wo rk 05-04-2022 Heart rate 81 /min DR BETINA GODADRD MD [facility] 01:040400 Wo rk 05-04-2022 Mean blood pressure 85 mm[Hg] DR BETINA GODDARD MD [facility] 01:04-0400 Wo rk 05-03-2022 Heart rate 94 /min DR BETINA GODDARD MD [facility] 19:06-0400 Wo rk 05-03-2022 Heart rate 82 /min DR BETINA GODDARD MD [facility] 14:51-0400 Wo rk 05-02-2022 Body height 165.[address] BETINA GODDARD MD [facility] 09:53-0400 Wo rk 05-02-20[address] Body [address] BETINA GODDARD MD [facility] 09:53-0400 Wo rk 05-02-2022 Body weight 22.01 kg/m2 DR BETINA GODDARD MD [facility] 09:53-0400 Wo rk 05-02-2022 Diastolic blood 86 mm[Hg] [facility] 06:28-0400 pressure Wo rk 05-02-2022 Heart rate 92 /min [facility] 06:28-0400 Wo rk 05-02-2022 Respiratory rate 20 /min [facility] 06:28-0400 Wo rk 05-02-2022 Systolic blood 131 mm[Hg] [facility] 06:28-0400 pressure Wo rk 05-02-2022 Diastolic blood 82 mm[Hg] [facility] 04:25-0400 pressure Wo rk 05-02-2022 Heart rate 95 /min [facility] 04:25-0400 Wo rk 05-02-2022 Mean blood pressure 98 mm[Hg] [facility] 04:25-0400 Wo rk 05-02-2022 Respiratory rate 22 /min [facility] 04:25-0400 Wo rk 05-02-2022 Systolic blood 129 mm[Hg] [facility] 04:25-0400 pressure Wo rk 05-02-2022 Diastolic blood 84 mm[Hg] [facility] 03:42-0400 pressure Wo rk 05-02-2022 Heart rate 98 /min [facility] 03:42-0400 Wo rk 05-02-2022 Mean blood pressure 99 mm[Hg] [facility] 03:42-0400 Wo rk 05-02-2022 Respiratory rate 24 /min [facility] 03:42-0400 Wo rk 05-02-2022 Systolic blood 130 mm[Hg] [facility] 03:42-0400 pressure Wo rk 05-02-2022 Body temperature 98.24 [degF] [facility] 03:12-0400 Wo rk 05-02-2022 Heart rate 130 /min [facility] 03:12-0400 Wo rk 05-02-2022 Heart rate 124 /min [facility] 03:11-0400 Wo rk 04-30-2022 Body weight 57.61 kg Tracy Ramires APRN.[facility] 15:400400 Work Phone: 04-30-2022 Diastolic blood 75 mm[Hg] Tracy Ramires APRN.[facility] 15:400400 pressure Work Phone: 04-30-2022 Heart rate 83 /min Tracy Ramires APRN.[facility] 15:400400 Work Phone: 04-30-2022 Systolic blood 138 mm[Hg] Tracy Ramires APRN.[facility] 15:40-0400 pressure Work Phone: 03-13-2022 Body height 165.1 cm Savanna Kenny APRN.[facility] 13:590400 Work Phone: 03-13-2022 Body weight 60.92 kg Svaanna Kenny APRN.[facility] 13:590400 Work Phone: 03-13-2022 Diastolic blood 76 mm[Hg] Savanna Kenny APRN.[facility] 13:59-0400 pressure Work Phone: 03-13-2022 Heart rate 81 /min Savanna Kenny APRN.[facility] 13:590400 Work Phone: 03-13-2022 SaO2% (BldA) [Mass 96 % Savanna Kenny CIVIL LITIGATION ATTORNEY.[facility] 13:59-0400 fraction] Work Phone: 03-13-2022 Systolic blood 157 mm[Hg] Savanna Kenny APRN.[facility] 13:59-0400 pressure Work Phone: Encounters Encounter Date Encounter Type Care Provider Facility Start: 01-01-2023 ambulatory [facility] Facility:[facility] End: 01-02-2023 [facility] Hospital Start: 01-01-2023 Patient encounter Oly Smith MELISSA.[facility] Internal Medicine End: 01-01-2023 procedure Work Phone: [place] Comment on above: Alcohol withdrawal syndrome without complication (HCC) (Primary Dx) Start: 01-01-2023 Telephone encounter Diana mcclain Psychology Work Phone: Comment on above: Behavioral Health Social Wor k Start: 12-23-2022 Emergency department JOSE ROBERTO COMBS MD Fac ility:B End: 12-23-2022 patient visit Start: 12-23-[address] JOSE ROBERTO COMBS MD [facility] End: 12-23-2022 patient visit Work P nayeli: Start: 12-14-2022 Refill Ulises Hermosillo MD [facility] edicine Work Phone: [facility] Comment on above: Refill Request Start: 11-26-2022 [facility] Facility:[facility] End: 11-26-2022 Hospital Start: 11-26-2022 Patient encounter Salima Asher MD Pulmo nary Medicine End: 11-26-2022 procedure Work Phone: Comment on above: Hemoptysis (Primary Dx); Stage 3 severe COPD by GOLD classification (HCC); Cigarette smoker Start: 10-26-2022 Emergency department [facility] Facility :B End: 10-26-2022 patient visit Start: 10-26-2022 Emergency department JEOVANY TAYLOR MD [facility] End: 10-26-2022 patient visit Work P nayeli: Start: 10-02-2022 ambulatory TAWNY D SELF Facility:[facility] End: 10-02-2022 [facility] Hospital Start: 10-02-2022 Patient encounter Tawny Das Self DO Vascular Surgery End: 10-02-2022 procedure Work Phone: Comment on above: PAD (peripheral artery disea se) ([facility]) Start: 09-25-2022 ambulatory TAWNY Das SELF Facility:[facility] End: 09-25-2022 Hospital Start: 09-21-2022 Telephone encounter Tawny Pippa Bosele DO Vascul gabriel Surgery Work Phone: Comment on above: Patient Question Start: 09-19-2022 Telephone encounter Tawny Pippa Self DO Vascul ar Surgery Work Phone: Comment on above: Orders Start: 09-05-2022 Patient encounter Ulises Hermosillo MD [employer] Operator al Medicine End: 09-05-2022 procedure Work Phone: [place] Comment on above: Thrush (oral) (Primary Dx); Prediabetes; Essential hypertension Start: 09-05-2022 ambulatory Ulises Hermosillo MD Internal [facility] [place] End: 09-05-2022 Work Phone: Comment on above: Mouth/Lip Problem Start: 08-31-2022 ambulatory ULISES HERMOSILLO Facility:[facility] End: 08-31-2022 Hospital Start: 08-31-2022 Patient encounter Oly Smith APRN.CNP Internal Medicine [place] End: 08-31-2022 procedure Work Phone: Comment on above: Situational anxiety (Primary Dx); Allergic conjunctivitis of b oth eyes; Recurrent major depression i n partial remission ([facility]); Essential hypertension; Coronary artery disease invo lving [place] coronary artery of [place] heart without angina pectoris; Chronic bronchitis, unspecif ied chronic bronchitis type ([facility]); Encounter for immunization; Mixed hyperlipidemia; Lung nodule; Screening for osteoporosis; Asymptomatic menopause Start: 08-13-2022 Telephone encounter Ulises Hermosillo MD Inte [facility] Medicine Work Phone: [place] Comment on above: Patient Update Start: 08-02-2022 Telephone encounter Tawny Self DO Vascul ar Surgery Work Phone: Comment on above: Appointment Start: 07-31-2022 ambulatory ULISES HERMOSILLO Facility:[facility] End: 07-31-2022 Hospital Start: 07-31-2022 Patient encounter Savanna Boldennathanael Kenny APRN.CN P Pulmonary Medicine End: 07-31-2022 procedure Work Phone: Comment on above: Lung nodules (Primary Dx); Current smoker Start: 07-26-2022 ambulatory UNKNOWN PROVIDER Facility:[facility] Start: 07-20-2022 Refill Ulises Hermosillo MD Internal Medicine [place] Work Phone: Comment on above: Refill Request Start: 07-13-2022 Telephone encounter Tawny Self DO Vascul ar Surgery Work Phone: Comment on above: Appointment Start: 07-09-2022 ambulatory ULISES HERMOSILLO Facility:[facility] End: 07-10-2022 Hospital Start: 07-09-2022 ambulatory Respiratory Therapist [facility] Pulmonary Medicine End: 07-09-2022 Work Phone: Comment on above: Arrived Start: 07-09-2022 Patient encounter Respiratory Therapist [facility] derick [facility] End: 07-09-2022 procedure Work Phone: Start: 07-06-2022 Telephone encounter Margaret Shrestha MD Pulmon gabriel Medicine Work Phone: Comment on above: Orders Start: 06-14-2022 Refill Ulises Hermosillo MD Internal Medicine [place] Work Phone: Comment on above: Refill Request Start: 06-06-2022 ambulatory ULISES HERMOSILLO Facility:[facility] End: 06-06-2022 Hospital Start: 06-06-2022 ambulatory Pulm Pulmonary [facility] End: 06-06-2022 Work Phone: Comment on above: Spirometry Start: 06-06-2022 Patient encounter Pulm [facility] NATANAEL MAYNARD End: 06-06-2022 procedure Work Phone: Comment on above: Asthma-COPD overlap syndrome (HCC) (Primary Dx); Wheezing; Smoking Start: 06-04-2022 Telephone encounter Ulises Hermosillo MD Inte rnal Medicine Work Phone: [place] Comment on above: Aerochamber spacer Start: 05-31-2022 Telephone encounter Ulises Hermosillo MD Inte rnal Medicine Work Phone: [place] Comment on above: Orders Start: 05-30-2022 Orders Only Savanna Kenny APRN.ENERGY CONSERVATION SPECIALIST Pulmonary Medicine Work Phone: Comment on above: Tobacco use disorder (Primar y Dx) Smoker (Primary Dx); Encounter for screening for malignant neoplasm of lung Start: 05-28-2022 Refill Tracy Ramires APRN.ENERGY CONSERVATION SPECIALIST Cardi ology Work Phone: Comment on above: Refill Request Start: 05-25-2022 Refill Ulises Hermosillo MD Internal Medicine [place] Work Phone: Comment on above: Refill Request Start: 05-23-2022 Telephone encounter Tracy Ramires APRN.ENERGY CONSERVATION SPECIALIST C ardiology Work Phone: Comment on above: Results Start: 05-21-2022 ambulatory TRACY RAMIRES Facility:[facility] End: 05-21-2022 Hospital Start: 05-21-2022 Patient encounter Echocardiogram Wstr Cardiolo gy End: 05-21-2022 procedure Work Phone: Comment on above: DIAZ (dyspnea on exertion) Start: 05-11-2022 ambulatory ULISES HERMOSILLO Facility:[facility] End: 05-11-2022 Hospital Start: 05-11-2022 Patient encounter Ulises Hermosillo MD [employer] Machine Operator al Medicine [place] End: 05-11-2022 procedure Work [...] 05-07-2022 Refill Ulises Hermosillo MD Internal Medicine [place] Work Phone: Comment on above: Refill Request Start: 05-02-2022 Evaluation and BETINA GODDARD MD Facility:A End: 05-05-2022 management of inpatient Start: 05-02-[address] BETINA GODDARD MD [facility] End: 05-05-2022 management of inpatient Work Phone: Start: 05-02-2022 Emergency department [facility] Facility :B End: 05-02-2022 patient visit Start: 05-02-2022 Emergency department [facility] End: 05-02-2022 patient visit Work P nayeli: Start: 04-30-2022 ambulatory TRACY RAMIRES Facility:[facility] End: 04-30-2022 [facility] Hospital Start: 04-30-2022 Patient encounter Tracy Ramires CIVIL LITIGATION ATTORNEY.ENERGY CONSERVATION SPECIALIST Car diology End: 04-30-2022 procedure Work Phone: Comment on above: DIAZ (dyspnea on exertion) (P rimary Dx); Essential hypertension; Coronary artery disease invo lving [place] coronary artery of [place] heart without angina pectoris; Mixed hyperlipidemia; Smoker; Stenosis of carotid artery, unspecified laterality Start: 04-03-2022 Refill Ulises Hermosillo MD Internal Medicine [place] Work Phone: Comment on above: Refill Request Start: 03-16-2022 Refill Eri Peguero APRN.C CARGO BRACER Pulmonary Medicine Work Phone: Comment on above: Refill Request Start: 03-13-2022 ambulatory ULISES HERMOSILLO Facility:[facility] End: 03-13-2022 Hospital Start: 03-13-2022 Patient encounter Savanna Kenny APRN.ALYSSA P Pulmonary Medicine End: 03-13-2022 procedure Work Phone: Comment on above: Dyspnea on exertion (Primary Dx); Smoker; Encounter for screening for malignant neoplasm of lung Start: 03-01-2022 Refill Oly Older CIVIL LITIGATION ATTORNEY.ENERGY CONSERVATION SPECIALIST Internal Me dylan Phelan Work Phone: Comment on above: Refill Request Start: 10-10-2021 ambulatory ULISES Deal [facility] Start: 08-14-2021 ambulatory [facility] Start: 08-14-2021 ambulatory [facility] Start: 04-29-2018 Emergency department patient UNKNOWN PROVIDER [facility] visit Procedures Date Procedure Procedure Detail Performing Clin ician Start: 08-31-2022 INFLUENZA SEASONAL Oly Older A PRN.LINDA QUADRIVALENT HIGH DOSE AGE Work Phone: 65+ Start: 07-09-2022 Noninvasive ear/pulse Margaret Shrestha MD oximetry multiple deter Work Steven ne: Start: 06-06-2022 Brncdilat rspse spmtry Tami elly Kenny CIVIL LITIGATION ATTORNEY.ENERGY CONSERVATION SPECIALIST pre&post-brncdilat admn Work Steven ne: Start: 05-21-2022 Echo tthrc r-t 2d Tracy E Ne abimbola CIVIL LITIGATION ATTORNEY.ENERGY CONSERVATION SPECIALIST w/wom-mode compl spec&colr Work Phone: d Start: 04-03-2017 Colonoscopy Oly Older CIVIL LITIGATION ATTORNEY .LINDA Work Phone: Cervical (qualifier value) ALETHA KILLIAN DO Work Phone: Comment on above: replacement of 2 discs Cholecystectomy EMMANUEL KILLIAN DO Work Phone: Cholecystocecostomy EMMANUEL WHEELER DO Work Phone: Hysterectomy EMMANUEL KILLIAN DO Work Phone: None (qualifier value) EMMANUEL QUICK DO Work Phone: Tonsillectomy EMMANUEL KILLIAN Earbits Work Phone: Upper limb structure (body structure) EMMANUEL KILLIAN Earbits Work Phone: Comment on above: left Plan of Treatment Date Care Activity Detail Author Start: 04-03-2027 Colonoscopy COLONOSCOPY [facility] Start: 04-03-2027 COLORECTAL CANCER COLORECTAL CANCER [facility] SCREENING SCREENING Start: 09-27-2026 LIPID SCREEN LIPID SCREEN [facility] ic Start: 10-19-2024 DIABETES SCREEN DIABETES SCREEN [facility] Start: 01-01-2024 ANNUAL PCP TEAM CHRONIC ANNUAL PCP TEAM CHRONI C [facility] DISEASE VISIT DISEASE VISIT Start: 09-05-2023 ANNUAL PCP TEAM CHRONIC ANNUAL PCP TEAM CHRONI C [facility] DISEASE VISIT DISEASE VISIT Start: 08-31-2023 ANNUAL PCP TEAM CHRONIC ANNUAL PCP TEAM CHRONI C [facility] DISEASE VISIT DISEASE VISIT Start: 08-31-2023 COVID-19 VACCINE (2 - COVID-19 VACCINE (2 - [facility] Pfizer series) Pfizer series) Comment on above: Postponed from 12/12/2021 (D eclined at this time) Start: 08-31-2023 SHINGRIX VACCINE (1 of 2) SHINGRIX VACCINE (1 of 2) [facility] Comment on above: Postponed from 2005 (D eclined at this time) Start: 08-31-2023 Urine microalbumin profile DTAP,TDAP,TD (1 - T dap) [facility] Comment on above: Postponed from 1974 (D eclined at this time) Start: 07-26-2023 Influenza vaccination LUNG CANCER SCREENING [facility] Start: 05-11-2023 ANNUAL PCP TEAM ANNUAL PCP TEAM CHRONIC [facility] CHRONIC DISEASE VISIT DISEASE VISIT Start: 05-11-2023 BP CONTROLLED BP CONTROLLED (<130/80) [facility] (<130/80) Start: 04-21-2023 PNEUMOVAX AGE 65 AND PNEUMOVAX AGE 65 AND [facility] OVER WITH 5YR OVER WITH 5YR LOOKBACK LOOKBACK (#1) (#1) Start: 11-26-2022 Alpha 1 antitrypsin [id number] BL Lab [facility] End: 01-26-2023 [Mass/volume] in Routine Stage 3 severe Work Steven ne: Serum or Plasma COPD by GOLD classification (HCC) Expected: 11/26/2022, Expires: 01/26/2023 Comment on above: Expected: 11/26/2022, s: 01/26/2023 Start: 11-26-2022 CBC W Auto CBC + DIFF Lab [facility] End: 01-26-2023 Differential panel - Routine Hemoptysis Work Steven ne: Blood Expected: 11/26/2022, Expires: 01/26/2023 Comment on above: Expected: 11/26/2022, s: 01/26/2023 Start: 11-11-2022 ADVANCE DIRECTIVE ADVANCE DIRECTIVE [facility] DISCUSSION DISCUSSION Start: 10-19-2022 ANNUAL PCP TEAM ANNUAL PCP TEAM CHRONIC [facility] CHRONIC DISEASE VISIT DISEASE VISIT Start: 09-27-2022 Hepatitis B surface LDL CHOLESTEROL [facility] antibody level Start: 08-11-2022 CBC panel - Blood by CBC Lab Routine PAD [facility] End: 10-11-2022 Automated count (peripheral artery Work Phone: disease) (HCC) Expected: 08/11/2022, Expires: 10/11/2022 Comment on above: Expected: 08/11/2022, s: 10/11/2022 Start: 08-11-2022 Comprehensive metabolic COMP METABOLIC PANEL [facility] End: 10-11-2022 2000 panel - Serum or Lab Routine PAD Work Phone : Plasma (peripheral artery disease) (HCC) Expected: 08/11/2022, Expires: 10/11/2022 Comment on above: Expected: 08/11/2022, s: 10/11/2022 Start: 08-11-2022 Lipid 1996 panel - LIPID PANEL BASIC Lab [facility] End: 10-11-2022 Serum or Plasma Routine PAD (peripheral Work Steven ne: artery disease) (HCC) Expected: 08/11/2022, Expires: 10/11/2022 Comment on above: Expected: 08/11/2022, s: 10/11/2022 Start: 07-12-2022 Influenza vaccination [facility] Start: 12-12-2021 COVID-19 VACCINE (2 - COVID-19 VACCINE (2 - [facility] Pfizer 3-dose series) Pfizer 3-dose series) Start: 12-12-2021 COVID-19 VACCINE (2 - COVID-19 VACCINE (2 - [facility] Pfizer series) Pfizer series) Start: 11-11-2021 ADVANCE DIRECTIVE ADVANCE DIRECTIVE [facility] DISCUSSION DISCUSSION Start: 01-06-2021 BP CONTROLLED (<130/80) BP CONTROLLED (<130/80 ) [facility] Start: 2020 BONE DENSITY BONE DENSITY [facility] Start: 04-21-2019 PNEUMOCOCCAL: 65+ (2 - PNEUMOCOCCAL: 65+ (2 - [facility] PCV) PCV) Start: 2010 Influenza vaccination LUNG CANCER SCREENING [facility] Start: 2005 Influenza vaccination LUNG CANCER SCREENING [facility] Start: 2005 SHINGRIX VACCINE (1 of SHINGRIX VACCINE (1 of [facility] 2) 2) Start: 2000 COLOGUARD (FIT-DNA) COLOGUARD (FIT-DNA) [facility] Start: [address] COLONOGRAPHY [facility] Start: 2000 FECAL OCCULT BLOOD FECAL OCCULT BLOOD [facility] Start: 2000 SIGMOIDOSCOPY SIGMOIDOSCOPY [facility] Start: 1985 Zoledronic acid therapy ALPHA-1 ANTITRYPSIN [facility] DEFICIENCY SCREENING Start: 1974 Urine microalbumin DTAP,TDAP,TD (1 - Tdap) [facility] profile Start: 1961 PNEUMOCOCCAL: 65+ (1 - PNEUMOCOCCAL: 65+ (1 - [facility] PCV) PCV) CT LUNG SCREEN WO IVCON CT LUNG SCREEN WO IVCON [facility] End: 10-10-2022 Radiology Routine Work Phone: Smoker Encounter for screening for malignant neoplasm of lung 1 Occurrences starting 05/30/2022 until 10/10/2022 Comment on above: 1 Occurrences starting 05/30 until 10/10/2022 Dxa bone density DXA-AXIAL [facility] End: 09-30-2023 study 1/> sites Radiology Routine Work Phone: axial skel Screening for osteoporosis Asymptomatic menopause 1 Occurrences starting 08/31/2022 until 09/30/2023 Comment on above: 1 Occurrences starting 08/31 until 09/30/2023 Echocardiography ECHO Cardiology Routine [facility] End: 04-30-2023 DIAZ (dyspnea on Work Phone: exertion) 1 Occurrences starting 04/30/2022 until 04/30/2023 Comment on above: 1 Occurrences starting 04/30 until 04/30/2023 LUNG DIFFUSION LUNG DIFFUSION [facility] End: 04-12-2023 CAPACITY (DLCO) CAPACITY (DLCO) PFT Work Phone: Routine Dyspnea on exertion 1 Occurrences starting 03/13/2022 until 04/12/2023 Comment on above: 1 Occurrences starting 03/13 until 04/12/2023 OXIMETRY WITH OXIMETRY WITH [facility] End: 08-05-2023 AMBULATION AMBULATION PFT Routine Work Phon e: SOB (shortness of breath) 1 Occurrences starting 07/06/2022 until 08/05/2023 Comment on above: 1 Occurrences starting 07/06 until 08/05/2023 PVR LEG SHERIN VAS PVR LEG SHERIN VAS LAB [facility] End: 05-11-2023 LAB Vascular Lab Routine PAD Work Ph one: (peripheral artery disease) (HCC) 1 Occurrences starting 05/11/2022 until 05/11/2023 Comment on above: 1 Occurrences starting 05/11 until 05/11/2023 PVR LEG SHERIN VAS PVR LEG SHERIN VAS LAB [facility] End: 09-21-2023 LAB Vascular Lab Routine Work Phone: Peripheral arterial disease (HCC) 1 Occurrences starting 09/21/2022 until 09/21/2023 Comment on above: 1 Occurrences starting 09/21 until 09/21/2023 PVR LEG SHERIN VAS PVR LEG SHERIN VAS LAB [facility] End: 10-02-2023 LAB Vascular Lab Routine PAD Work Ph one: (peripheral artery disease) (HCC) 1 Occurrences starting 10/02/2022 until 10/02/2023 Comment on above: 1 Occurrences starting 10/02 until 10/02/2023 Radiologic exam chest XR CHEST 2V [facility] End: 12-26-2023 2 views FRONTAL/LAT Radiology Work Phone : Routine Hemoptysis 1 Occurrences starting 11/26/2022 until 12/26/2023 Comment on above: 1 Occurrences starting 11/26 until 12/26/2023 SPIROMETRY - BASELINE SPIROMETRY - BASELINE [facility] End: 04-12-2023 AND POST DILATOR AND POST DILATOR PFT Work Phone : Routine Dyspnea on exertion 1 Occurrences starting 03/13/2022 until 04/12/2023 Comment on above: 1 Occurrences starting 03/13 until 04/12/2023 SPIROMETRY - BASELINE AND SPIROMETRY - BASELINE AND [facility] POST DILATOR POST DILATOR PFT Routine Work Ph one: Dyspnea on exertion 06/06/2022 9:25 AM EDT [facility] Immunizations Immunization Date Immunization Notes Care Provider Facility 08-31-2022 influenza, high-dose, Oly Older CIVIL LITIGATION ATTORNEY.[facility] quadrivalent vaccine Work Phone: (FLUZONE HIGH DOSE QUADRIVALENT) 05-11-2022 pneumococcal Conjugate, Ulises Hermosillo MD 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 CONSERVATION SPECIALIST [facility] quadrivalent vaccine Work Phone: (FLUZONE HIGH DOSE QUADRIVALENT) 01-06-2020 influenza, injectable, Oly Older CIVIL LITIGATION ATTORNEY.ENERGY CONSERVATION SPECIALIST [facility] quadrivalent, contains Work Phone: Work Phone: preservative 04-21-2018 pneumococcal Oly Older CIVIL LITIGATION ATTORNEY.[facility] polysaccharide vaccine, Work Phone: 23 valent 09-13-2011 influenza, seasonal, EMMANUEL [facility] injectable, preservative Work Phone: free 09-13-2011 pneumococcal EMMANUEL [facility] polysaccharide vaccine, 23 valent Payers Date Payer Category Payer Medicare [id number] 2021 Unknown ANTHEM BLUE CROSS AND BLUE xxxxx [id number] SHIELD ANTHEM MEDIBLUE O [id number] 2021-Present [phone] [address] [place] [address] [facility] [place] Unknown [id number] 2021 Medicaid MEDICAID [facility] MEDICAID [id number] 2021-Present [phone] [address] [place] [address] Medicaid 2021 Medicaid [id number] 2021 Medicaid MEDICAID [facility] MEDICAID [id number] 2021-Present [phone] [address] [place] [id number] Medicaid 2021 Unknown 2021 Unknown [id number] 1955 Unknown [id number] 1955 Unknown [id number] 1955 Unknown [id number] 1955 Unknown [id number] Social History Date Type Detail Facility Start: 11-11-1966 Tobacco smoking status Smokes tobacco daily Cl [facility] End: 10-02-2022 [facility] Start: 11-11-1966 History of tobacco use Cigarette Smoker [facility] Start: 12-05-2021 Alcohol intake Current drinker of [facility] End: 01-01-2023 alcohol (finding) Start: 10-06-2019 History SDOH Alcohol 2 [facility] Frequency Start: 10-06-2019 History SDOH Alcohol 3 [facility] Std Drinks Start: 10-06-2019 Tobacco Comment down to 1ppd 10/06/19 [facility] Start: 1955 Sex Assigned At Not on file [facility] Start: 03-03-2022 Exposure to SARS-CoV-2 Not sure [facility] End: 08-31-2022 (event) Start: 06-14-2021 Tobacco smoking status Heavy tobacco smoker [facility] (finding) Work Phone: Sex Assigned At Sex [facility] Work Phone: Start: 04-24-2022 Exposure to SARS-CoV-2 Unable to assess [facility] End: 07-13-2022 (event) Work Phone: Start: 05-30-2022 Cigarettes smoked 2 [facility] inic End: 01-01-2023 current (pack per day) - Reported Start: 05-30-2022 Tobacco use and Smokeless tobacco [facility] in End: 10-02-2022 exposure non-user Work Phone: Start: 07-31-2022 Tobacco Comment started age 10 - down [facility] to 1.5 ppd lately Start: 10-02-2022 Tobacco Comment started age 10 - down [facility] to 1.5 ppd lately, now down to 1 ppd Start: 11-26-2022 Alcohol intake Ex-drinker (finding) [facility] Start: 01-01-2023 History SDOH Alcohol 5 [facility] Frequency Medical Equipment Procedure Code Equipment Code Equipment Original Equipment Identifi er Dates Text Iho-Ys-X-Kind [id number]_[facility] Start: Implant - [id number] Comment on above: Description: innova vascular sten Liner 36mm 0d E X3 5.9mm Acetabular Hip - [id number] Start: 03-25-2019 [id number] Shell 54mm E Hemispherical Tritanium Acet abular [id number] Start: 03-25-2019 Primary Rim Cluster Hole - [id number] Head V40 36mm 0mm Offset Taper Biolox Del ta Femoral [id number] Start: 03-25-2019 Hip - [id number] Stem Accolade Ii 6 127d Femoral - [id number] Start: 03-25-2019 Patch Xenosure Bovine Pericardial 14x1cm Vascular [id number] Start: 10-20-2019 Nonpyrogenic Sterile - [id number] Screw Trident Secur-Fit Torx 6.5mm Titani um 25mm [id number] Start: 03-25-2019 Bone Sterile Acetabular - [id number] Stent Innova 8mm 80mm 130cm Vascular Self Expand [id number] Start: 10-20-2019 Radiopaque Hybrid Cell - [id number] Functional Status Date Assessment Result Facility 12-23-2022 Functional Status Independent [facility] 12-23-2022 Functional Status Standard Safety ID band on, [facility] Call device within reach, Bed [place] in low position, Wheels locked, Upper/Half-Length side-rails up, Phone within reach, personal items within reach, Bedside Cart Locked 10-26-2022 Functional Status Independent [facility] 10-26-2022 Functional Status Room check performed [facility] ospital [facility] 05-05-2022 Functional Status Room located near nursing stat ion, [facility] Door open, Work Phone: Non-Slip footwear, Room check performed 05-05-2022 Functional Status [facility] Work Phone: 05-04-2022 Functional Status Ambulation in Room [facility] Work Phone: 05-04-2022 Functional Status Bath cloths [facility] Work Phone: 05-03-2022 Functional Status [facility] Work Phone: 05-02-2022 Functional Status Hospital bed [facility] Work Phone: 05-02-2022 Functional Status [facility] Work Phone: 05-02-2022 Functional Status Standard Safety ID band on, [facility] Call device within reach, Bed Wo rk in low position, Wheels locked, Upper/Half-Length side-rails up, Phone within reach, personal items within reach Mental Status Date Assessment Result Facility 12-23-2022 Mental Status Orientation Oriented x 4 [facility] 12-23-2022 Mental Status [facility] 10-26-2022 Mental Status Orientation Oriented x 4 [facility] 10-26-2022 Mental Status [facility] 05-05-2022 Mental Status Oriented x 4 [facility] Work Phone: 05-04-2022 Mental Status [facility] Work Phone: 05-04-2022 Mental Status [facility] Work Phone: 05-04-2022 Mental Status [facility] Work Phone: 05-02-2022 Mental Status Orientation Oriented x 4 [facility] Work Phone: Clinical Notes 07-07-2020 to 01-01-2023 Telephone Encounter - GIO Cardona - 01/01/2023 3:42 PM ESTPatient CharliOly Smith APRN.LINDA - 01/01/2023 1:12 PM Aiden Asher MD - 11/26/2022 12:45 PM EST Note Date & Type Note Facility 01-01-2023 Miscellaneous Formatting of this note migh t be different from the original. [facility] Notes Behavioral Health Social Work Progress N ote Patient identified for [facility] from: PCP Reason for referral: Resources Behavioral Health Resources: Substance a buse [facility] encounter type: Telephone Encounter Attempts to Outreach: 1 attempt Referral made: Psychology - External Psychology-External referral type: Alcoh ol/Drug Treatment Reason for external referral : Patient seeking long term care administrator support, Patient needs services closer to home [...] look into for detoxification and substance abuse: [facility] [address] [place] [address] [id number] [place] [address] [facility] [address] [place] [address] [place] [address] [phone] Patient states she may end u p just going to [facility] if she can't find anywhere to go to assist as she really needs to detox. Advised to call these numbers and if additional assistance is needed to inform this SW. GIO Cardona January 01, 2023 documented in this encounter 01-01-2023 Note HNO ID: [id number] [facility] Author: Oly Smith APRN.LINDA [place] Service: ? Author Type: Nurse Practitioner Type: [...] 12/14/2015 Bipolar affective disorder, currently ac tive ([facility]) 01/18/2016 [facility] Chronic bronchitis ([facility]) 07/26/2016 Closed skull fracture ([facility]) 1994 [facility] Coronary artery disease DDD (degenerative disc disease), cervica l Endometriosis 2007 Essential hypertension 12/14/2015 GERD (gastroesophageal reflux disease) 0 03/13/2019 History of colon polyps History of gastric ulcer 12/14/2015 HLD (hyperlipidemia) Injury of left facial nerve 1994 PAD (peripheral artery disease) ([facility]) Recurrent major depression in partial re mission ([facility]) 12/14/2015 S/P drug eluting coronary stent placemen [...] disc surgery x 3 STENT PLACEMENT 08/25/2021 ORDNEY LAD AND Dg2 TEAEC W/WO PATCH GRAFT DEEP PROFUNDA FEM ORAL Right 10/20/2019 patch angioplasty, Right iliac stent TONSILLECTOMY PRIMARY/SECONDARY Tonsillectomy TOTAL ABDOMINAL HYSTERECT W/WO RMVL TUBE OVARY 1979 Hysterectomy, MAURA TOTAL FACIAL NERVE DECOMPRESSION AND/REP AIR Left 1989 [facility] ALLERGIES Patient has no known allergies . MEDICATIONS traZODone (DESYREL) 100 mg tablet Take 2 tablets by mouth daily at bedtime. sfvyqjhhwvi-xqaqqpwmj-aasekjns (TRELEGY ELLIPTA) 200-62.5-25 mcg inhalation powder Inhale [...] content not included)... 01-01-2023 Note HNO ID: [id number] [facility] Author: RT Aziza(R) Clarington Service: ? Author Type: Guest Associate Type: Progress Notes Filed: 01/01/2023 1:02 PM [...] Smith APRN.CNP - 2022 2:09 PM EST [facility] Alcohol abuse (alcoholism) i s common. [...] in this encounter 01-01-2023 History of Present [facility] illness Narrative CC: Patient presents with: [...] 12/14/2015 Bipolar affective disorder, currently ac tive ([facility]) 01/18/2016 Dr. Angie Jones, [facility] Chronic bronchitis ([facility]) 07/26/2016 Closed skull fracture ([facility]) 1994 [facility], [facility] Coronary artery disease DDD (degenerative disc disease), cervica l Endometriosis 2007 Essential hypertension 12/14/2015 GERD (gastroesophageal reflux disease) 0 03/13/2019 History of colon polyps History of gastric ulcer 12/14/2015 HLD (hyperlipidemia) Injury of left facial nerve 1994 PAD (peripheral artery disease) ([facility]) Recurrent major depression in partial re mission ([facility]) 12/14/2015 S/P drug eluting coronary stent placemen [...] DECOMPRESSION &/REPAI R Left 1989 [facility] ALLERGIES Patient has no known allergies . MEDICATIONS traZODone (DESYREL) 100 mg tablet Take 2 tablets by mouth daily at bedtime. hvulgcqmcau-eakkxqcgg-bkmzwl er (TRELEGY ELLIPTA) 200-62.5-25 mcg inhalation powder [...] like to discuss inpatient rehab facility with health care social worker, referral placed Close follow-up in office in one week, p atient agreeable - [facility] Prescription instructions re viewed with patient as applicable. Potential red flag symptoms discussed with the patient. Reviewed appropriate action plan to take if red flag symptoms occur. Patient agreeable to treatment plan. During this patient visit I have spent approximately 30 minutes in counseling regarding treatment options, medications, and coordinating care. lOy Smith APRN.CNP documented in this encounter 12-23-2022 Hospital Discharge Patient Education 12/23/2022 16:02:45 COPD Flare COPD Flare [facility] instructions Work Phone: You have had a [...] your ankles gets worse Dizziness or weakness [phone] The [employer]. [address] [place] [address], [place] [address]. All rights reserved. This information is not [...] by rest an d mild pain reliever [phone] [employer]. [address] [place] [address]. All rights reserved. This information is not intended as a substitute for professional medical care. Always follow your healthcare professional's instructions. Follow Up Care 12/23/2022 13:42:18 With:ULISES HERMOSILLO MD Address: [address] [place] [address]- When:2-4 days Comments:Return to ED if symptoms worsen 12-23-2022 Note [facility] Discharge Instructions Thank you for allowing [facility] to assist you with your healthcare [...] to ED if symptoms worsen Where: [address] [place] [address]- Allergies NKA Medications Please ask [...] your ankles gets worse Dizziness or weakness [phone] [employer]. [address] [place] [address]. All rights reserved. This information is not [...] by rest an d mild pain reliever [phone] [employer]. [address] [place] [address], [place] [address]. All rights reserved. This information is not intended as a substitute for professional medical care. Always follow your healthcare professional's instructions. Additional Information VACCINATE! IT SAVES LIVES! Members of the community who have not yet received the COVID-19 vaccine and would like to receive it can visit one of [facility] vaccine clinics. There are many vaccine clinic locations within the [facility]. For locations and available times, please visit [email or web address]. It is important to note that some COVID mobile vaccine clinics are held outdoors and may be canceled in rainy or stormy conditions. To learn more about pediatr ic vaccinations (ages 5-11), we invite you to visit the [facility] webpage. [email or web address] [email or web address] T o learn more about the COVID -19 vaccine, we invite you to visit the [employer] website for a list of frequently asked questions. [email or web address]_ Asked-Questions.pdf [employer] Patient Portal Access I nstructions: Stay connected with your [facility] ltare team and access your personal medical information anytime with the [employer] Patient Portal. If you would like a full copy of your medical records please conta ct the [facility] Records Department Saturday through Saturday between 8a.m. and 4:30p.m. Please follow the directions below to access the portal: 1.Access the email account y ou provided upon registration to the hospital.2.Look for an invitation email from [facility].3.Open the email and access the invitation link: Accept Invitation to [facility] shilo [employer] MobileChart4.Fill in the required randle to create your account. Sign into www.[employer] wi th your username and password that [...] your information. You can also access the [employer] Patient Portal on the [employer] larissa. Simply click on Health Records under Health Data and then click on the [employer] logo. HOW TO SAFELY DISPOSE OF PRESCRIPTION [...] Call your local pharmacy or go to [email or web address] to find one close to you.3.Make use of ho usehold items: Use cat litte r or old coffee grounds to dispose medications if other options are not available. Mix your drugs with these household products, seal them in an airtight container and throw it into the garbage. Call [place] [employer]: [phone] to be sure your drugs can be [...] aware that I should contact my doctor. 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 [facility] Notes Last seen pcp 09/05/22 Next [...] sent to the pharmacy. Call patient at [phone] (cell) [facility] documented in this encounter 11-26-2022 Note HNO ID: [id number] [facility] Author: MD Jeronimo Carvalho Service: ? Author Type: Physician Type: Progress Notes Filed: 11/26/2022 2:01 PM Note Text: . [facility] [place] Note Patient name: Vince Koenig PCP: Ulises Hermosillo MD CC: Hemoptysis HPI: Vince Koenig 67 year old femal e current heavy smoker, over 100 pack years with PMH significant for bipo lar affective disorder, h/o alcohol abuse, GERD, PAD, HLD, CAD s/p s tent, severe COPD (FEV1 0.83 L 36%), oxygen dependence, previously foll owing in [facility], new to me. Recent admission at [facility] in [place] for AECOPD. CXR reported as normal. Discharged [...] No chest pain or current cough. DME: [facility] DATA: PFT 05/2022: Review of spirometry shows severe obstru ction without significant improvement post bronchodilators and mod erate reduction in diffusing capacity Labs: Laboratory testing at [facility], normal CBC and platelet count. Negative COVID and influenza Imaging / Diagnostic Studies: DATE OF EXAM: Jul 26 2022 4:27PM [facility] [place]G S[place]EN WO IVCON / ACC ESSION # [id number] PROCEDURE REASON: multiple diagnoses CLINICAL HISTORY: Lung [...] Alcohol use disorder 01/18/2016 Dr. Angie Jones, [facility] Anxiety 12/14/2015 Bipolar affective disorder, currently ac tive ([facility]) 01/18/2016 Dr. 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 dxkzddqiywv-ywqgindrd-pflvjxgs (TRELEGY ELLIPTA) 200-62.5-25 mcg inhalation powder Inhale [...] content not included)... 11-26-2022 History of Present [facility] illness Narrative Images from the original note were not i ncluded. . [facility] [place] Note Patient name: Vince Koenig PCP: Ulises Hermosillo MD CC: Hemoptysis HPI: Vince Koenig 67 ye ar old female current heavy smoker, over 100 pack years with PMH significant for bipolar affective disorder, h/o alcohol abuse, GERD, PAD, HLD, CAD s/p stent, severe COPD (FE V1 0.83 L 36%), oxygen depen julio, previously following in [facility], new to me. Recent admission at [facility] in [place] for AECOPD. CXR reported as normal. Discharged [...] No chest pain or current cough. DME: [facility] DATA: PFT 05/2022: Review of spirometry shows s evere obstruction without significant improvement post bronchodilators and moderate reduction in diffusing capacity Labs: Laboratory testing at [facility], normal CBC and platelet count. Negative COVID and influenza Imaging / Diagnostic Studies: DATE OF EXAM: Jul 26 2022 4:27PM [facility] [place] LUNG SCREEN WO IVCON / ACC ESSION # [id number] PROCEDURE REASON: multiple diagnoses CLINICAL HISTORY: Lung [...] 12/14/2015 Bipolar affective disorder, currently ac tive ([facility]) 01/18/2016 Dr[facility]ie [facility] Chronic bronchitis ([facility]) 07/26/2016 Closed skull fracture ([facility]) 1994 [facility], [facility] Coronary artery disease DDD (degenerative disc disease), cervica l Endometriosis 2007 Essential hypertension 12/14/2015 GERD (gastroesophageal reflux disease) 0 03/13/2019 History of colon polyps History of gastric ulcer 12/14/2015 HLD (hyperlipidemia) Injury of left facial nerve 1994 PAD (peripheral artery disease) ([facility]) Recurrent major depression in partial re mission ([facility]ER[facility]) 12/14/2015 S/P drug eluting coronary stent placemen t 08/25/2021 LAD and Dg2 Spinal stenosis ALLERGIES No Known Allergies albuterol HFA (VENTOLIN HFA) 90 mcg/actuation inhaler Inhale 2 Puffs as instructed every 6 hours as needed for wheezing/shortness of breath. raaxaczvsqp-gbxojqrul-swrkkp er (TRELEGY ELLIPTA) 200-62.5-25 mcg inhalation powder [...] DECOMPRESSION &/REPAI R Left 1989 [facility] PMH, Social history, family history and surgical [...] cessation strongly encouraged Salima Asher MD [facility] [place] documented in this encounter 10-26-2022 Hospital Discharge Patient Education 10/26/2022 19:44:17 COPD Flare COPD Flare [facility] instructions Work Phone: You have had a [...] your ankles gets worse Dizziness or weakness [phone] The C[employer]. [address] [place] [id number]. All rights reserved. This information is not intended as a substitute for professional medical care. Always follow your healthcare professional's instructions. Follow Up Care 10/26/2022 16:18:34 With:Go to emergency room if symptoms worsen Address:Unknown When:2-4 days With:ULISES HERMOSILLO MD Address: [address] [place] [address]- When:2-4 days 10-26-2022 Note [facility] Discharge Instructions Thank you for allowing [facility] to assist you with your healthcare [...] MD When Within 2-4 days Where: [address] [place] [address]- Allergies NKA Medications Please ask [...] may report side effects to FDA at 6-950-YPJ-3038. What other drugs will affect budesonide and formoterol? Sometimes it is not safe to use certain medications at the same time. Some drugs can affect your blood levels of other drugs you take, which may increase side effects or make the medications less effective. Many drugs can affect budes onide and formoterol. This includes prescription and bzzf-fku-hgpisrx medicines, vitamins, and herbal products. Not all [...] to ensure that the information provided by [employer]. ('[employer]') is accurate, up-to-date, and complete, but no guarantee is made to that effect. Drug information con tained herein may be time se nsitive. [employer] information has been compiled for use by healthcare practitioners and consumers in the [place] and therefore [employer] does not warrant that uses outside o f the [place] are appr opriate, unless specifically indicated otherwise. [employer] drug information does not endorse drugs, diagnose patients or recommend therapy. [employer] drug information is an in formational resource [...] or ap propriate for any given patient. [employer] does not assume any responsibility for any aspect of healthcare administered with the aid of information [employer] provides. The informat ion contained herein is not intended to cover all possible uses, directions, precautions, warnings, drug interactions, allergic reactions, or adverse effects. If you have questions about the drugs you a re taking, check with your doctor, nurse or pharmacist. Copyright 3108-1102 [employer]. Version: 9.02. Revision Date: 07/08/2019. prednisone (PRED [...] may report side effects to FDA at 0-215-XXK-5464. What other drugs will affect prednisone ? [...] may affect prednisone. This includes prescription and zeph-gep-nlemliv medicines, vitamins, and herbal products. Not all [...] to ensure that the information provided by [employer] ('[employer]') is accurate, up-to-date, and complete, but no guarantee is made to that effect. Drug information con tained herein may be time se nsitive. [employer] information has been compiled for use by healthcare practitioners and consumers in the [place] and therefore [employer] does not warrant that uses outside o f the [place] are appr opriate, unless specifically indicated otherwise. [employer]'s drug information does not endorse drugs, diagnose patients or recommend therapy. [employer] drug information is an in formational resource [...] or ap propriate for any given patient. [employer] does not assume any responsibility for any aspect of healthcare administered with the aid of information [employer] provides. The informat ion contained herein is not intended to cover all possible uses, directions, precautions, warnings, drug interactions, allergic reactions, or adverse effects. If you have questions about the drugs you a re taking, check with your doctor, nurse or pharmacist. Copyright 6464-8474 [employer]. Version: 10.. Revision Date: 02/05/2019. doxycycline (oral/injection) [...] life-threatening conditions such as an thrax or [place] spot gilda fever. The benefit of treating [...] may report side effects to FDA at 7-977-NYZ-7369. What other drugs will affect doxycyclin e? Sometimes it is not safe to use certain medications at the same time. Some drugs can affect your blood levels of other drugs you take, which may increase side effects or make the medications less effective. Other drugs may affect doxy cycline, including prescription and aknb-jfn-uyhaenc medicines, vitamins, and herbal products. Tell your [...] to ensure that the information provided by [employer] ('[employer]') is accurate, up-to-date, and complete, but no guarantee is made to that effect. Drug information con tained herein may be time se nsitive. [employer] information has been compiled for use by healthcare practitioners and consumers in the [place] and therefore [employer] does not warrant that uses outside o f the [place] are appr opriate, unless specifically indicated otherwise. [employer]'s drug information does not endorse drugs, diagnose patients or recommend therapy. [employer] drug information is an in formational resource [...] or ap propriate for any given patient. [employer] does not assume any responsibility for any aspect of healthcare administered with the aid of information [employer] provides. The informat ion contained herein is not intended to cover all possible uses, directions, precautions, warnings, drug interactions, allergic reactions, or adverse effects. If you have questions about the drugs you a re taking, check with your doctor, nurse or pharmacist. Copyright 8104-9127 [employer]. Version: .. Revision Date: 09/14/2020. Education Materials [...] your ankles gets worse Dizziness or weakness [phone] The CSDN. [address] [place] [address]. All rights reserved. This information is not intended as a substitute for professional medical care. Always follow your healthcare professional's instructions. Additional Information VACCINATE! IT SAVES LIVES! Members of the community who have not yet received the COVID-19 vaccine and would like to receive it can visit one of [facility] vaccine clinics. There are many vaccine clinic locations within the [facility]. For locations and available times, please visit [email or web address]. It is important to note that some COVID mobile vaccine clinics are held outdoors and may be canceled in rainy or stormy conditions. To learn more about pediatr ic vaccinations (ages 5-11), we invite you to visit the [facility] webpage. [email or web address] [email or web address] T o learn more about the COVID -19 vaccine, we invite you to visit the [facility] website for a list of frequently asked questions. [email or web address] [facility] [employer] Patient Portal Access I nstructions: Stay [facility] and access your personal medical information anytime with the [facility] [employer] Patient Portal. If you would like a full copy of your medical records please conta ct the [facility] Records Department Saturday through Saturday between 8a.m. and 4:30p.m. Please follow the directions below to access the portal: 1.Access the email account y ou provided upon registration to the [facility].2.Look for an invitation email from [facility].3.Open the email and access the invitation link: Accept Invitation to [facility] shilo [employer]itzer [employer]4.Fill in the required randle to create your account. Sign into www.[employer] wi th your username and password that [...] you will allow to register on the [facility] [employer] Patient Portal for access to your information. You can also access the [employer] Patient Portal on the [employer] larissa. Simply click on Health Records under Health Data and then click on the [employer] logo. HOW TO SAFELY DISPOSE OF PRESCRIPTION [...] Call your local pharmacy or go to [email or web address] to find one close to you.3.Make use of ho usehold items: Use cat litte r or old coffee grounds to dispose medications if other options are not available. Mix your drugs with these household products, seal them in an airtight container and throw it into the garbage. Call [place] [employer]: [phone] to be sure your drugs can be [...] aware that I should contact my doctor. 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 10-26-2022 Note [facility] ORIGINAL EXAMINATION: ONE XRAY VIEW [...] PM Ordering Provider: BRIAN TRINIDAD 10-26-2022 Note [facility] ORIGINAL EXAMINATION: ONE XRAY VIEW [...] (10/26/22 5:52 PM) 10-02-2022 Note HNO ID: [id number] [facility] Author: DO Palomo Kaplanveland Service: Vascular Surgery Author Type: Physician Type: Progress Notes Filed: 10/15/2022 2:42 PM Note Text: NAME: VINCE KOENIG [facility] NO: [id number] DATE OF SERVICE: 10/02/2022 Subjective: Vince is [...] with any concerns. Cb Virk/089 Audio #: [id number] Date Dictated: 10/02/2022 09:31:07 Date Typed: 10/08/2022 10:11:23 Date Revised: 10-02-2022 Note HNO ID: [id number] [facility] Author: DO Franko Kaplan Service: ? Author Type: Physician Type: Progress Notes Filed: 10/02/2022 10:38 AM Note Text: This office note has been dictated. Tawny Self DO 10-02-2022 History of Present [facility] illness Narrative This office note has been dictated. Tawny Self DO documented in this encounter 09-24-2022 Miscellaneous Formatting of this note migh t be different from the original. [facility] Notes Spoke with pt and confirmed [...] as soon as able. Thank you! Linda Quitman Electronically signed by Linda agarwal 09/21/2022 2:49 PM EST documented in this encounter 09-19-2022 Miscellaneous Formatting of this note migh t be different from the original. [facility] Notes Patient called to reschedule damir lab testing from 07/13. Unable to schedule, stated 09/11. Please place new orders and advise patient for scheduling. documented in this encounter 09-05-2022 Note HNO ID: [id number] [facility] Author: Ulises Hermosillo MD [place] Service: ? Author Type: Physician Type: Progress [...] Recurrent Major Depression in Partial Re mission ([facility]) Bipolar Affective Disorder, Currently Ac tive ([facility]) History of Alcohol Abuse Chronic bronchitis ([facility]) Spinal Stenosis, Lumbar Region Without N eurogenic Claudication Radiculopathy, Lumbar Region Smoker Gerd (Gastroesophageal Reflux Disease) Seasonal Allergies Pad (Peripheral Artery Disease) ([facility]) Anxiety and Depression Prediabetes Chest Pain Other Chest Pain Stenosis of Carotid Artery Mixed Hyperlipidemia Abnormal Stress Test Dyspnea On Exertion Coronary Artery Disease Involving [place] Coronary Artery of [place] Heart Without Angina Pectoris Lung Nodule Current [...] 2 tablets by mouth daily at bedtime. ibpcxjbbxak-lataxfpuo-pjgxbbki (TRELEGY ELLIPTA) 200-62.5-25 mcg inhalation powder Inhale [...] Ulises Hermosillo MD 09-05-2022 History of Present [facility] illness Narrative Patient presents with: Pain: [...] Recurrent Major Depression in Partial Re mission ([facility]) Bipolar Affective Disorder, Currently Ac tive ([facility]) History of Alcohol Abuse Chronic bronchitis ([facility]) Spinal Stenosis, Lumbar Region Without N eurogenic Claudication Radiculopathy, Lumbar Region Smoker Gerd (Gastroesophageal Reflux Disease) Seasonal Allergies Pad (Peripheral Artery Disease) ([facility]) Anxiety and Depression Prediabetes Chest Pain Other Chest Pain Stenosis of Carotid Artery Mixed Hyperlipidemia Abnormal Stress Test Dyspnea On Exertion Coronary Artery Disease Invo lving [place] Coronary Artery of [place] Heart Without Angina Pectoris Lung Nodule Current [...] 2 tablets by mouth daily at bedtime. jiaajlqbmol-kkulocbfm-vdpiar er (TRELEGY ELLIPTA) 200-62.5-25 mcg inhalation powder [...] migh t be different from the original. [facility] Notes Patient calls in to report [...] difficulty with dr inking. Protocols used: Mouth Vxmp-DXKZZ-OZ documented in this encounter 08-31-2022 Note HNO ID: [id number] [facility] Author: Oly Smith APRN.[facility] Service: ? Author Type: Nurse Practitioner [...] 148/82[manual[ 06/06/2022 173/84 Coronary artery disease involving [place] coronary artery of [place] heart without angina pectoris Her neurophysiologist with [facility]. She on Plavix and Imdur. She stopped taking ASA because she takes Excedrin a lot and tho ught it was the same thing. Chronic bronchitis ([facility]) Inspector Line is with [facility]. Last appointm ent in [...] 12/14/2015 Bipolar affective disorder, currently ac tive ([facility]) 01/18/2016 Dr. Angie Jones, [facility] Chronic bronchitis ([facility]) 07/26/2016 Closed skull fracture ([facility]) 1994 [facility], [facility] Coronary artery disease DDD (degenerative disc disease), cervica l Endometriosis 2007 Essential hypertension 12/14/2015 GERD (gastroesophageal reflux disease) 0 03/13/2019 History of colon polyps History of gastric ulcer 12/14/2015 HLD (hyperlipidemia) Injury of left facial nerve 1994 PAD (peripheral artery disease) ([facility]) Recurrent major depression in partial re mission ([facility]) 12/14/2015 S/P drug eluting coronary stent placemen [...] DECOMPRESSION AND/REP AIR Left 1989 [facility] ALLERGIES Patient has no known allergies . MEDICATIONS traZODone (DESYREL) 100 mg tabletTake 2 tablets by mouth daily at bedtime.Disp: 60 tabletRfl: 5 seenpsrzhjt-lfdgftrwg-kfdvtgqa (TRELEGY ELLIPTA) 200-62.5-25 mcg inhalation powderInhale 1 [...] Smith APRN.CNP - 2021 1:46 PM EDT [facility] Increase venlafaxine to 225 mg, take 150 mg cap with 75 mg cap to equal 225 mg. Take lorazepam as needed. Please use sparingly, no refills. Patanol eye drops for allergy symptoms Triamcinolone cream for rash on left ear documented in this encounter 08-31-2022 History of Present [facility] illness Narrative CC: Patient presents with: [...] 06/06/2022 173/84 Coronary artery disease invo lving [place] coronary artery of [place] heart without angina pectoris Her neurophysiologist with [facility]. S he on Plavix and Imdur. She stopped taking ASA because she takes Excedrin a lot and thought it was the same thing. Chronic bronchitis ([facility]) Inspector Line is with [facility]. Fidencio ast appointment in May. Symbicort was stopped and she was started on Trelegy. She reports chronic cough, SOB and wheezing are about the same. Also has home oxygen for as needed use. REVIEW OF SYSTEMS See [facility] PAST MEDICAL HISTORY Diagnosis Date Acute pancreatitis 2010 Maynor Cruz Alcohol use disorder 01/18/2016 [facility] Anxiety 12/14/2015 Bipolar affective disorder, currently ac tive ([facility]) 01/18/2016 [facility] Chronic bronchitis ([facility]) 07/26/2016 Closed skull fracture ([facility]) 1994 [facility] Coronary artery disease DDD (degenerative disc disease), cervica l Endometriosis 2007 Essential hypertension 12/14/2015 GERD (gastroesophageal reflux disease) 0 03/13/2019 History of colon polyps History of gastric ulcer 12/14/2015 HLD (hyperlipidemia) Injury of left facial nerve 1994 PAD (peripheral artery disease) ([facility]) Recurrent major depression in partial re mission ([facility]) 12/14/2015 S/P drug eluting coronary stent placemen [...] DECOMPRESSION &/REPAI R Left 1989 [facility] ALL[facility]GIES Patient has no known allergies . MEDICATIONS traZODone (DESYREL) 100 mg t ablet^Take 2 tablets by mouth daily at bedtime.^Disp: 60 tablet^Rfl: 5 ezziiwoafwr-rpvashlqq-iyryzw er (TRELEGY ELLIPTA) 200-62.5-25 mcg inhalation powder^Inhale [...] activity was identified. 08/31/2022 by Oly Smith APRN.ENERGY CONSERVATION SPECIALIST 2. Allergic conjunctivitis of both eyes - [...] TABLET 5. Coronary artery disease i nvolving [place] coronary artery of [place] heart without angina pectoris - ICD9: 414.01, [...] in July. F ollow-up with lung cancer dental billing specialist as advised 10. Screening for osteoporosis [...] migh t be different from the original. [facility] Notes No thanks. Formatting of this note might be differe nt from the original. Azeb CM with Kailash toro t o let provider know that care plans for patient are available on the portal now. February also wants to let prov ider know that on August 30 at 4 pm they will be having a rounding meeting and if provider would like to attend he can contact them at [phone] Option 3 to arrange. Nena Dozier RN documented in this encounter 08-02-2022 Miscellaneous Formatting of this note migh t be different from the original. [facility] Notes Please call patient to schedule testing prior to appt on 08/14/2022 Thank you documented in this encounter 07-31-2022 Note HNO ID: [id number] [facility] Author: Karly Garcia APRN. LINDA [place] Service: ? Author Type: Nurse Practitioner Type: Progress Notes Filed: 07/31/2022 4:53 PM Note Text: Attestation signed by Savanna thurman APRN.ENERGY CONSERVATION SPECIALIST at 07/31/2022 4:53 PM TEACHING PROVIDER (Physician/PA/MELISSA) [...] daily. Per her last OV with her candy cooker helper, Symbicort was advised to be discontinued as Trelegy wa s added on. Activity: Does light house work but has to stop in between chores to catch her breath. Gets SOB with showering or w ith walking from her bedroom to her kitchen. The patient does not requir e assistance with normal activities of daily living. Modified Medical Research Craig Dyspne a Scale (MMRC) I stop for [...] 12/14/2015 Bipolar affective disorder, currently ac tive ([facility]) 01/18/2016 [facility] Chronic bronchitis ([facility]) 07/26/2016 Closed skull fracture ([facility]) 1994 [facility], [facility] Coronary artery disease DDD (degenerative disc disease), cervica l Endometriosis 2007 Essential hypertension 12/14/2015 GERD (gastroesophageal reflux disease) 0 03/13/2019 History of colon polyps History of gastric ulcer 12/14/2015 HLD (hyperlipidemia) Injury of left facial nerve 1994 PAD (peripheral artery disease) ([facility]) Recurrent major depression in partial re mission [...] DECOMPRESSION AND/REP AIR Left 1989 [facility] Family Hx: FAMILY HISTORY Problem Relation Age [...] content not included).. . 07-31-2022 Instructions Sincere Damian.ENERGY CONSERVATION SPECIALIST - 07/31/2022 2:44 PM EDT [facility] Good news! Your CT scan for [...] please feel free to contact me at [phone]. Karly Garcia APRN.ENERGY CONSERVATION SPECIALIST documented in this encounter 07-31-2022 History of Present [facility] illness Narrative Images from the original [...] daily. Per her last OV with her candy cooker helper, Symbicort was advised to be discontinued as Trelegy was added on. Activity: Does light house w ork but has to stop in between chores to catch her breath. Gets SOB with showering or with walking from her bedroom to her kitchen. The patient does not require assistance with normal activities of daily living. Modified Medical Research Craig Dyspne a Scale (MMRC) I stop for [...] Alcohol use disorder 01/18/2016 Dr. Angie Jones, [facility] Anxiety 12/14/2015 Bipolar affective disorder, currently ac tive ([facility]) 01/18/2016 Dr. Angie Jones, [facility] Chronic bronchitis ([facility]) 07/26/2016 Closed skull fracture ([facility]) 1994 [facility], [facility] Coronary artery disease DDD (degenerative disc disease), cervica l Endometriosis 2007 Essential hypertension 12/14/2015 GERD (gastroesophageal reflux disease) 0 03/13/2019 History of colon polyps History of gastric ulcer 12/14/2015 HLD (hyperlipidemia) Injury of left facial nerve 1994 PAD (peripheral artery disease) ([facility]) Recurrent major depression in partial re mission ([facility]) 12/14/2015 S/P drug eluting coronary stent placemen [...] DECOMPRESSION &/REPAI R Left 1989 [facility] Family Hx: FAMILY HISTORY Problem Relation Age [...] uit. -I personally spent 5 minutes in disability counselor ing. -The time spent in smoking c essation counseling is exclusive of any other counseling during this visit. Karly Garcia APRN.[facility] July 31, 2022 11:12 AM I spent a total of 30 minute s on the date of the service which included preparing to see the patient, atkp-ha-xysi patient care, completing clinical documentation, obtaining and/or [...] in this encounter 07-26-2022 Note HNO ID: [id number] [facility] Author: YASSINE Hatch Service: Radiology [...] migh t be different from the original. [facility] Notes LM notifying patient Formatting of [...] at be dtime. Authorizing Provider: DAT RODNEY xwillnsovec-kzeftolos-lfznif er (TRELEGY ELLIPTA) 200-62.5-25 mcg inhalation powder [...] pcp 05/11/22. Next appt is 08/13/22 with CARGO BRACER. Formatting of this note is different fro m the original. Patient has been identified by Yesname a nd date of : Requested Prescriptions Pending Prescriptions Disp Refills traZODone (DESYREL) 100 mg tablet 60 tab let 0 Sig: Take 2 tablets by mouth daily at be dtime. nxgyhctwksn-wqhkqkhwz-pndxgu er (TRELEGY ELLIPTA) 200-62.5-25 mcg inhalation powder [...] migh t be different from the original. [facility] Notes Left message to advise appoi ntment with Dr Self has been moved up to August 4ht @ 10:15 in the [place] . Formatting of this note might be differe nt from the original. Patient called back in [employer] to message left for her. Informed her that she needs to complete testing first before she has appt with Dr. Self. She verbalized understanding. I informed her of when her testing is on 07/26/2022 in [facility] and rescheduled her appt with Dr. Self in [place] on 09/11/2022 since that was the soonest [...] the office for other appt options in [place]. documented in this encounter 07-09-2022 Note HNO ID: [id number] [facility] Author: ASHLEY Cage [place] Service: ? Author Type: Respiratory Therapist Type: [...] used for stability. 07-09-2022 Note HNO ID: [id number] [facility] Author: ASHLEY Cage [place] Service: ? Author Type: Respiratory Therapist Type: Progress Notes Filed: 07/09/2022 3:31 PM Note Text: PULM FUNCTION SMARTBLOCK: Provider: Margaret Shrestha MD Assisting Tech: ASHLEY Cage Oximetry - Ambulation: 1 07-09-2022 Procedure note Associated Order(s): OXIMETRY WITH AMBULATION [facility] Formatting of this note is different [...] in this encounter 07-09-2022 History of Present [facility] illness Narrative PULM FUNCTION SMARTBLOCK: Provider: Margaret Shrestha MD Assisting Tech: ASHLEY Cage Oximetry - Ambulation: 1 documented in this encounter 07-06-2022 Miscellaneous Formatting of this note migh t be different from the original. [facility] Notes Order for oximetry documented in this encounter 06-14-2022 Miscellaneous Formatting of this note is d ifferent from the original. [facility] Notes Patient has been identified by [...] in this encounter 06-06-2022 Note HNO ID: [id number] [facility] Author: Margaret Shrestha MD [place] Service: ? Author Type: Physician Type: Progress Notes Filed: 06/06/2022 10:48 AM Note Text: [facility] OFFICE VISIT CONSULT 06/06/2022 Patient Name: Vince Koenig PRIMARY CARE PHYSICIAN: Ulises lennno MD REASON FOR CONSULT: Asthma -COPD overlap [...] sinc e teenage, COPD, recently discharged from [facility] in [facility] where she was treated for COPD exacerbation [...] and relieved by inhalers Recent hospital admissions: [facility] in [place] Medications: Symbicort, albuterol Most recent Radiology Most [...] No significant exposure Silica: No significant exposure Huntington: No significant exposure Mold: No significant exposure Hot tub: No significant exposure Fumes: No significant exposure Metal dust: No significant exposure Beryllium: No significant exposure Dust: No significant exposure Medications: No relevant exposure for in terstitial lung diseases PAST MEDICAL HISTORY Diagnosis Date - Acute pancreatitis 2010 Maynor Cruz - Alcohol use disorder 01/18/2016 Dr. Angie Jones, [facility] - Anxiety 12/14/2015 - Bipolar affective disorder, currently active ([facility]) 01/18/2016 Dr. Angie Jones, [facility] - Chronic bronchitis ([facility]) 07/26/2016 - Closed skull fracture ([facility]) 1994 [facility], [facility] - Coronary artery disease - DDD (degenerative disc disease), cervi peewee - Endometriosis 2007 - Essential hypertension 12/14/2015 - GERD (gastroesophageal reflux disease) 03/13/2019 - History of colon polyps - History of gastric ulcer 12/14/2015 - HLD (hyperlipidemia) - Injury of left facial nerve 1994 - PAD (peripheral artery disease) ([facility]) 09/28/2019 - Recurrent major depression in partial remission ([facility]) 12/14/2015 - S/P drug eluting coronary stent [...] DECOMPRESSION AND/R EPAIR Left 1989 [facility] FAM[facility] HISTORY Problem Relation Age of Onset - Cancer Mother 50 lung cancer - Hypertension Mother - Cancer Father 50 lung cancer - Cancer Sister 61 lung cancer Social History Tobacco Use - Smoking status: Current Every Day Smok er Packs/day: 2.00 Years: 55.00 Pack years: 110.00 Types: Cigarettes (more content not included)... 06-06-2022 Note HNO ID: [id number] [facility] Author: Paco Miguel RRT [place] Service: ? Author Type: Registered Resp Therapist Type: Progress Notes Filed: 06/06/2022 9:48 AM Note Text: PULM FUNCTION SMARTBLOCK: Provider: Margaret Shrestha MD Assisting Tech: Paco Miguel RRT Spirometry w/BD: 1 DLCO: 1 06-06-2022 History of Present [facility] illness Narrative Images from the original [...] asthma since teenage, COPD, recently discharged from [facility] where she was treated for COPD [...] and relieved by inhalers Recent hospital admissions: [facility] in [place] Medications: Symbicort, albuterol Most recent Radiology Most [...] No significant exposure Silica: No significant exposure Huntington: No significant exposure Mold: No significant exposure [...] 12/14/2015 Bipolar affective disorder, currently a ctive ([facility]) 01/18/2016 Dr[facility] Chronic bronchitis ([facility]) 07/26/2016 Closed skull fracture ([facility]) 1994 [facility], [facility] Coronary artery disease DDD (degenerative disc disease), cervic al Endometriosis 2007 Essential hypertension 12/14/2015 GERD (gastroesophageal reflux disease) 03/13/2019 History of colon polyps History of gastric ulcer 12/14/2015 HLD (hyperlipidemia) Injury of left facial nerve 1994 PAD (peripheral artery disease) ([facility]) 1 11/28/2018 Recurrent major depression in partial r emission ([facility]) 12/14/2015 S/P drug eluting coronary stent placeme [...] DECOMPRESSION &/REPA IR Left 1989 [facility] FAMILY HISTORY Problem Relation Age of Onset [...] Take 1 tablet by mouth once daily. fzlcdchrgnp-zvaezpwlv-pecxmj er (TRELEGY ELLIPTA) 200-62.5-25 mcg inhalation powder [...] 400 QTC Calculation (Bazett) 450 Calculated P [place] 82 Calculated R [place] 65 Calculated T [place] 69 Impression NORMAL SINUS RHYTHM NORMAL ECG Confirmed by AZALEA ROTH M.D. ([id number] ) on 10/23/2021 11:14:32 AM Recent Results (from the past 68387 hour (s)) ECHO Collection Time: 05/21/22 3:26 [...] disease counseling. Margaret Shrestha MD Staff, Respiratory [place] [facility] CC: MD Zoya Jameson, Savanna Guillen, * documented in this encounter 06-06-2022 History of Present [facility] illness Narrative PULM FUNCTION SMARTBLOCK: Provider: Margaret Shrestha MD Assisting Tech: Paco Miguel RRT Spirometry w/BD: 1 DLCO: 1 documented in this encounter 06-04-2022 Miscellaneous Formatting of this note migh t be different from the original. [facility] Notes New order printed and faxed. Natalie Blackman Ma See phone note from 05/31, this was faxed and then re faxed on 06/04 Oly Smith APRN.CNP [facility]- [facility], o rts she has received several orders for the Aerochamber spacer, electronically signed by Fluoroscope Operator. States she cannot accept this. Needs an actual prescription with name, address an d signature of provider. Ple ase send actual prescription. Fax number [phone]. documented in this encounter 06-01-2022 Miscellaneous Formatting of this note migh t be different from the original. [facility] Notes Order faxed - patient notified, verbaliz ed understanding. Natalie Blackman Ma She has an appointment with pulmonary medicine on 06/06, she can discuss portable oxygen tank orders at that time. Please fax prescription for spacer Oly Smith APRN.LINDA Patient calls and is asking about a spacer for her inhalers. Patient asking if prescription can be sent for inhaler spacer? Pharmacy is [facility]. See Message below in regards to portable oxygen tank. Please review and advise, Christina Pete RN Patient calls and is asking if provider can write orders for patient to have a smaller portable oxygen tank so it is easier for her to go places. She gets current supplies from [facility]. Please review and advise, Christina Pete, RN documented in this encounter 05-30-2022 Miscellaneous Addended by: SAVANNA KENNY on: 05/30/2022 09:06 AM [facility] Notes Modules accepted: Orders documented in this encounter 05-29-2022 Miscellaneous Formatting of this note is d ifferent from the original. [facility] Notes Patient's request for medication is [...] migh t be different from the original. [facility] Notes Detailed message left for patient. The following approved medic ation requests have been transmitted electronically. Signed Prescriptions Disp Refills budesonide-formoterol (SYMBICORT) 160-4. 5 mcg/actuation inhaler 1 Each 0 Sig: Inhale 2 Puffs as instructed twice daily. BECKY: No Authorizing Provider: OLY SMITH APRN.ENERGY CONSERVATION SPECIALIST Patient has been identified by name and date of : Yes Pending Prescriptions Disp Refills SYMBICORT 160 MCG-4.5 MCG/ACTUATION HFA AEROSOL INHALER Sig: Inhale 2 Puffs as instructed twice daily. BECKY: Yes RX INSTRUCTIONS: Patient requesting a call wh en RX is approved and sent to the pharmacy. Please call patient at: [phone]. Telma Greco Pss documented in this encounter 05-24-2022 Miscellaneous Formatting of this note migh t be different from the original. [facility] Notes Patient returned call and wa s notified. Attempted to call pt. No ans wer. Left message for pt. to return call. Please advise of below and close encounter when pt calls back. Thank you. Shanelle Toribio RN ----- Message from Tracy Ramires APRN.ENERGY CONSERVATION SPECIALIST sent at 05/22/2022 7:41 AM EDT ----- Please call patient and noti fy her echocardiogram reveals stable LV function and no significant valve disease. Thank you! doc umented in this encounter 05-22-2022 Miscellaneous Formatting of this note migh t be different from the original. [facility] Notes Please call patient and noti fy her echocardiogram reveals stable LV function and no significant valve disease. Thank you! documented in this encounter 05-11-2022 Note HNO ID: [id number] [facility] Author: Ulises Hermosillo MD [place] Service: ? Author Type: Physician Type: Progress [...] Recurrent Major Depression in Partial Re mission ([facility]) Bipolar Affective Disorder, Currently Ac tive ([facility]) History of Alcohol Abuse Chronic bronchitis ([facility]) Spinal Stenosis, Lumbar Region Without N eurogenic Claudication Radiculopathy, Lumbar Region Smoker Gerd (Gastroesophageal Reflux Disease) Seasonal Allergies Pad (Peripheral Artery Disease) ([facility]) Anxiety and Depression Prediabetes Chest Pain Other Chest Pain Stenosis of Carotid Artery Mixed Hyperlipidemia Abnormal Stress Test Dyspnea On Exertion Coronary Artery Disease Involving [place] Coronary Artery of [place] Heart Without Angina Pectoris Social History Tobacco [...] Stable. 6. PAD (peripheral artery di sease) ([facility]) - ICD9: 443 (more content not included)... 05-11-2022 Instructions Ulises Hermosillo MD - 11/2021 2:14 PM EDT [facility] FASTING BLOOD WORK IN 3 [facility]. documented in this encounter 05-11-2022 History of Present [facility] illness Narrative This note was created using [employer] [place]. Subjective Patient presents with: Hospital Follow Up [...] Recurrent Major Depression in Partial Re mission ([facility]) Bipolar Affective Disorder, Currently Ac tive ([facility]) History of Alcohol Abuse Chronic bronchitis ([facility]) Spinal Stenosis, Lumbar Region Without N eurogenic Claudication Radiculopathy, Lumbar Region Smoker Gerd (Gastroesophageal Reflux Disease) Seasonal Allergies Pad (Peripheral Artery Disease) ([facility]) Anxiety and Depression Prediabetes Chest Pain Other Chest Pain Stenosis of Carotid Artery Mixed Hyperlipidemia Abnormal Stress Test Dyspnea On Exertion Coronary Artery Disease Invo lving [place] Coronary Artery of [place] Heart Without Angina Pectoris Social History Tobacco [...] Chronic bronchitis, unspe cified chronic bronchitis type ([facility]) - ICD9: 491.9, ICD10: J42 (primary diagnosis) Hypoxemia? Home Oxygen? Keep pulmonary f ollow up as scheduled. 2. Recurrent major depressio n in partial remission ([facility]) - ICD9: 296.35, ICD10: F33.41 Stable. Continue medication. Call for re fill. 3. Gastroesophageal reflux d isease, unspecified whether esophagitis present - ICD9: 530.81, ICD10: K21.9 Controlled. - OMEPRAZOLE 40 MG CAPSULE,DELAYED RELEA SE 4. Need for vaccination - ICD9: V05.9, I CD10: Z23 - PNEUMOCOCCAL VACCINE (PREVNAR 20) 5. Bipolar affective disorde r, current episode mixed, current episode severity unspecified ([facility]) - ICD9: 296.60, ICD10: F31.60 Stable. 6. PAD (peripheral artery disease) ([facility]) - ICD9: 443.9, ICD10: I73.9 - PVR LEG [facility] - CONSULT TO VASCULAR SURGERY - CBC - COMP METABOLIC PANEL - LIPID PANEL BASIC Ulises Hermosillo MD documented in this encounter 05-07-2022 Miscellaneous Formatting of this note is d ifferent from the original. [facility] Notes MURTAZA: 10/19/2021 Last refill: 11/21/2021 [...] Obstructive Pulmonary Disease Chronic Obstructive Pulmonary Disease [facility] instructions Chronic obstructive pulmonar y disease (COPD) [...] Follow these instructions at home: Medicines Take ozei-shq-dixymgk and p rescription medicines (inhaled or pills) [...] Released: Document Revised: 10/10/2018 Document Reviewed: 12/02/2017 [employer] Patient Education 2020 [employer]. Follow Up Care 05/02/2022 09:30:28 With:[facility] Address: When: Unknown Comments:[facility] will provide your home oxygen and equipment. Call them when you arrive home and they will deliver your oxygen concentrator to you. Their number is [phone]. With:ULISES HERMOSILLO MD Address: [facility] [place] [address]- When:05/11/2022 13:40:00 Comments:The appointment on 05/07 has [...] confirmed cardiac medications in addition to Plavix. [facility] 06-22-2022 SARS-CoV-2 (COVID-19) RNA IVANA+probe Ql (Nph) Negative (05/02/22 4:25 AM)AO Auto Urine [id number] NoteHNO ID: [id number] Author: Tracy Ramires APRN.ENERGY CONSERVATION SPECIALIST Service: ? Author Type: Nurse Practitioner Type: [...] Alcohol use disorder 01/18/2016 Dr. Angie Jones, [facility] - Anxiety 12/14/2015 - Bipolar affective disorder, currently active ([facility]) 01/18/2016 Dr[facility] Angie [facility] - Chronic bronchitis (HCC) 07/26/2016 - Closed skull fracture ([facility]) 1994 [facility], [facility] - Coronary artery disease - DDD (degenerative disc disease), cervical - Endometriosis 2007 - Essential hypertension 12/14/2015 - GERD (gastroesophageal reflux disease) 03/13/2019 - History of colon polyps - History of gastric ulcer 12/14/2015 - HLD (hyperlipidemia) - Injury of left facial nerve 1994 - PAD (peripheral artery disease) ([facility]) 09/28/2019 - Recurrent major depression in partial remission ([facility]) 12/14/2015 - S/P drug eluting coronary stent [...] NERVE DECOMPRESSION AND/REPAIR Left 1989 [facility] FAM[facility] HISTORY Problem Relation Age of Onset [...] 04/30/2022 ) 28 Patch (more content not included)...[facility]06-20-2022 InstructionsPatient InstructionsTracy Ramires APRN.ENERGY CONSERVATION SPECIALIST - 04/30/2022 3:57 PM EDT Images from [...] the health of your heart. Developed by [employer]. Published by [employer]. Copyright 2014 [employer] and/or one of its subsidiaries. All rights reserved. documented in this encounterL[facility] Hospital06-[facility]-2022 History of Present illness NarrativeTracy Ramires [...] Anxiety 12/14/2015 Bipolar affective disorder, currently active ([facility]) 01/18/2016 Dr. Angie Jones, [facility] Chronic bronchitis ([facility]) 07/26/2016 Closed skull fracture ([facility]) 1994 [facility], [facility] Coronary artery disease DDD (degenerative disc disease), cervical Endometriosis 2007 Essential hypertension 12/14/2015 GERD (gastroesophageal reflux disease) 03/13/2019 History of colon polyps History of gastric ulcer 12/14/2015 HLD (hyperlipidemia) Injury of left facial nerve 1994 PAD (peripheral artery disease) ([facility]) 09/28/2019 Recurrent major depression in partial remission ([facility]) 12/14/2015 S/P drug eluting coronary stent placement [...] NERVE DECOMPRESSION &/REPAIR Left 1989 [facility] FAM[facility] HISTORY Problem Relation Age of Onset [...] injection (DEFINITY) INTRAVENOUS DIRECTED PRN Tracy Ramires APRN.ENERGY CONSERVATION SPECIALIST sodium chloride 0.9 % (flush) 10 mL (BD POSIFLUSH) 10 mL INTRAVENOUS DIRECTED PRN Tracy Ramires, CIVIL LITIGATION ATTORNEY.ENERGY CONSERVATION SPECIALIST perflutren lipid microspheres 1.3 mL in NaCl (PF) 0.9% 10 mL injection (DEFINITY) INTRAVENOUS DIRECTED PRN Tracy Ramires, CIVIL LITIGATION ATTORNEY.ENERGY CONSERVATION SPECIALIST sodium chloride 0.9 % (flush) 10 mL (BD POSIFLUSH) 10 mL INTRAVENOUS DIRECTED PRN Tracy Ramires APRN.ENERGY CONSERVATION SPECIALIST Review of Systems Constitutional: Negative for chills, [...] LAD portion of the stent 3.7mm, with methodist of blood flow, no residual stenosis. Assessment [...] 30, 2022, 3:36 PM documented in this encounterL[facility]05-[facility]22 Miscellaneous Notes Telephone Encounter - Jasmine Ramos LPN - 04/03/2022 10:00 AM EDT Last see pcp CARGO BRACER 02/14/21. Next appt with CARGO BRACER 05/04/22. elephone Encounter - Cailin Austin - [...] notify patient. Cailin Austin documented in this encounterLima City Hospital05-03-2022 NoteHNO ID: [id number] Author: Savanna Kenny, MELISSA.ENERGY CONSERVATION SPECIALIST Service: ? Author Type: Nurse Practitioner Type: [...] 50% of waking hrs. Modified Medical Research Craig Dyspnea Scale (MMRC) On level ground I [...] Alcohol use disorder 01/18/2016 Dr. Angie Jones, [facility] - Anxiety 12/14/2015 - Bipolar affective disorder, currently active ([facility]) 01/18/2016 Dr. Angie Jones, [facility] - Chronic bronchitis ([facility]) 07/26/2016 - Closed skull fracture ([facility]) [address] [facility] - Coronary artery disease - DDD (degenerative disc disease), cervical - Endometriosis 2007 - Essential hypertension 12/14/2015 - GERD (gastroesophageal reflux disease) 03/13/2019 - History of colon polyps - History of gastric ulcer 12/14/2015 - HLD (hyperlipidemia) - Injury of left facial nerve 1994 - PAD (peripheral artery disease) ([facility]) 09/28/2019 - Recurrent major depression in partial remission ([facility]) 12/14/2015 - S/P drug eluting coronary stent [...] NERVE DECOMPRESSION AND/REPAIR Left 1989 [facility] FAM[facility] HISTORY Problem Relation Age of Onset [...] and gum as needed. (more content not included)...[facility]05-03-2022 InstructionsPatient InstructionsSavanna Kenny APRN.ENERGY CONSERVATION SPECIALIST - 03/13/2022 2:44 PM EDT Cigarette Logs [...] candy are also excellent oral substitutes. Phone [phone] ([phone]) as additional resource. CT Lung Screen Results [...] to endocrinology. Others Lung Cancer Screening hotline: [phone] Lung Cancer Screening [phone] Billing Questions: or [email or web address] Lung Cancer Screening Team: Linda Meyer CNP; Crystal Kenny CNP; Eri Cheung CNP; Agata Cruz CNP, JAYMIE SrivastavaC: [phone] Bouchra Cuenca PA-C documented in this encounterLima City Hospital05-03-2022 History of Present illness Dalton Kenny APRN.CNP [...] 50% of waking hrs. Modified Medical Research Craig Dyspnea Scale (MMRC) On level ground I [...] Anxiety 12/14/2015 Bipolar affective disorder, currently active ([facility]) 01/18/2016 Dr[facility]ie [facility] Chronic bronchitis ([facility]) 07/26/2016 Closed skull fracture ([facility]) 1994 [facility] Coronary artery disease DDD (degenerative disc disease), cervical Endometriosis 2007 Essential hypertension 12/14/2015 GERD (gastroesophageal reflux disease) 03/13/2019 History of colon polyps History of gastric ulcer 12/14/2015 HLD (hyperlipidemia) Injury of left facial nerve 1994 PAD (peripheral artery disease) ([facility]) 09/28/2019 Recurrent major depression in partial remission ([facility]) 12/14/2015 S/P drug eluting coronary stent placement [...] NERVE DECOMPRESSION &/REPAIR Left 1989 [facility] FAMILY HISTORY Problem Relation Age of Onset [...] Date(s) Administered COVID-19 vaccine, age 12+ yr ([employer] - [employer]ALA TOP) 11/21/2021 Influenza Seasonal Inj Quad Age 6 Mo - 64 Yrs 01/06/2020 Pneumovax 04/21/2018 influenza, high-dose, quadrivalent vaccine (FLUZONE HIGH DOSE QUADRIVALENT) 08/23/2020 Colonoscopy: 04/03/2017 Mammogram: DATA REVIEW I have directly visualized the testing documented: Prior Imaging: CT: Yes 2020 Abnormal Done at [facility] 01/2021 CXR: Yes 2020 Abnormal Nonspecific [...] risk for lung cancer: 23.1 % Source: RuiYi [email or web address] I have determined that the patient is [...] candy are also excellent oral substitutes. Phone [phone] ([phone]) as additional resource. The medical conditions adversely [...] which included preparing to see the patient, vmkj-yu-dwxu patient care, completing clinical documentation, obtaining and/or reviewing separatelyobtained history, performing a medically appropriate examination, counseling and educating the patien t/family/caregiver, ordering medications, tests, or procedures and communicating results to the patient/family/caregiver. Savanna Kenny APRN.LINDA NPI #: March 13, 2022 2:10 PM documented in this encounterLima City Hospital04-21-2022 Miscellaneous NotesTelephone Encounter - Joyce Woody APRN.ROSMERY [...] notify patient. Isadora Guillene documented in this encounterLima City Hospital11-30-2021 NoteHNO ID: [id number] Author: RT Hiral(R) Service: Radiology Author Type: [...] BY: RT Hiral(R) October 10, 2021 11:15 AMUniversity [facility]als [facility] Medical [id number] NoteHNO ID: [id number] Author: Tracy Ramires APRN.ENERGY CONSERVATION SPECIALIST Service: ? Author Type: Nurse Practitioner Type: [...] seen by myself on 06/12/2021 at our [place] office. Stress testing was done d/t symptoms [...] Alcohol use disorder 01/18/2016 Dr. Angie Jones, [facility] - Anxiety 12/14/2015 - Bipolar affective disorder, currently active ([facility]) 01/18/2016 Dr. Angie Jones, [facility] - Chronic bronchitis ([facility]) 07/26/2016 - Closed skull fracture ([facility]) 1994 [facility], [facility] - Coronary artery disease - DDD (degenerative disc disease), cervical - Endometriosis 2007 - Essential hypertension 12/14/2015 - GERD (gastroesophageal reflux disease) 03/13/2019 - History of colon polyps - History of gastric ulcer 12/14/2015 - HLD (hyperlipidemia) - Injury of left facial nerve 1994 - PAD (peripheral artery disease) ([facility]) 09/28/2019 - Recurrent major depression in partial remission ([facility]) 12/14/2015 - S/P drug eluting coronary stent placement 08/25/2021 LAD and Dg2 - Spinal stenosis PAST SURGICAL HISTORY Procedure Laterality Date - APPENDECTOMY 1979 - COLONOSCOP W/ OR W/O [facility] SPEC 2010 Colonoscopy - COLONOSCOPY 04/03/2017 diverticulosis- repeat 10 years - DECOMPRESS FACIAL NERVE,TOTAL Left 1989 [facility] - EGD 04/03/2017 Gastritis, duodenitis, GERD with [...] tablet 0 - camron (more content not included)...[facility]10[facility] Note HNO ID: [id number] Author: MAISHA Alicea Service: Radiology Author Type: Clinical Guest Associate Type: Progress Notes Filed: 08/14/2021 4:04 PM [...] STATUS: Discontinued PROCEDURE TYPE: NM Stress: 12.6mCi He31h-Tmnaauf was administered IV for Rest Imaging at 13:45 by MAISHA Alicea. 30.5 mCi [id number] was administered IV for Stress Imaging at 15:40 by MAISHA Alicea. PATIENT DISCHARGED TO: Ambulatory patient, left IN department area. A Diagnostic radioactive procedure has taken place, with no further precautions necessary other than routine body substance precautions. More information regarding radiation safety can be found using this link: [email or web address] SIGNATURE: MAISHA Alicea PATIENT NAME: Vince Koenig DATE: August 14, 2021 TIME: 4:03 PM [phone] History of Past illness Narrative Problem Noted Date Resolved Date Asthma 07/07/2020 07/07/2020 Hypomagnesemia 10/22/2019 10/23/2019 Last Assessment & Plan: Replete mag today Preop cardiovascular exam 09/28/2019 10/06/2019 Precordial pain, short lived, 3-5 minutes, nonexertional, no 09/28/2019 07/07/2020 evidence of stress-induced ischemia on dobutamine echo in [facility] 2018. Last Assessment & Plan: Assessment: [...] The patient has not had a prior [facility] ocardiographic exam for comparison. History of total right hip arthroplasty 03/25/2019 07/07/2020 Primary osteoarthritis of right hip 03/13/201909/12 Hyperkalemia 07/27/2016 11/27/2018 Polycythemia 07/27/2016 11/27/2018 Overview: recheck Anxiety 12/14/2015 01/06/2021 documented as of this encounter (statuses as of 03/01/2022)[facility] 07-07-2020 History of Past illness Narrative Problem Noted Date Resolved Date Asthma 07/07/2020 07/07/2020 Hypomagnesemia 10/22/2019 10/23/2019 Last Assessment & Plan: Replete mag today Preop cardiovascular exam 09/28/2019 10/06/2019 Precordial pain, short lived, 3-5 minutes, nonexertional, no 09/28/2019 07/07/2020 evidence of stress-induced ischemia on dobutamine echo in [facility] 2018. Last Assessment & Plan: Assessment: [...] as of this encounter (statuses as of 03/13/2022)[facility] 07-07-2020 History of Past illness Narrative Problem Noted Date Resolved Date Asthma 07/07/2020 07/07/2020 Hypomagnesemia 10/22/2019 10/23/2019 Last Assessment & Plan: Replete mag today Preop cardiovascular exam 09/28/2019 10/06/2019 Precordial pain, short lived, 3-5 minutes, nonexertional, no 09/28/2019 07/07/2020 evidence of stress-induced ischemia on dobutamine echo in [facility] 2019. Last Assessment & Plan: Assessment: [...] as of this encounter (statuses as of 03/23/2022)[facility] 07-07-2020 History of Past illness Narrative Problem Noted Date Resolved Date Asthma 07/07/2020 07/07/2020 Hypomagnesemia 10/22/2019 10/23/2019 Last Assessment & Plan: Replete mag today Preop cardiovascular exam 09/28/2019 10/06/2019 Precordial pain, short lived, 3-5 minutes, nonexertional, no 09/28/2019 07/07/2020 evidence of stress-induced ischemia on dobutamine echo in [facility] 2018. Last Assessment & Plan: Assessment: [...] as of this encounter (statuses as of 04/03/2022)[facility] 07-07-2020 History of Past illness Narrative Problem Noted Date Resolved Date Asthma 07/07/2020 07/07/2020 Hypomagnesemia 10/22/2019 10/23/2019 Last Assessment & Plan: Replete mag today Preop cardiovascular exam 09/28/2019 10/06/2019 Precordial pain, short lived, 3-5 minutes, nonexertional, no 09/28/2019 07/07/2020 evidence of stress-induced ischemia on dobutamine echo in [facility] 2018. Last Assessment & Plan: Assessment: [...] as of this encounter (statuses as of 05/03/2022)[facility] 07-07-2020 History of Past illness Narrative Problem Noted Date Resolved Date Asthma 07/07/2020 07/07/2020 Hypomagnesemia 10/22/2019 10/23/2019 Last Assessment & Plan: Replete mag today Preop cardiovascular exam 09/28/2019 10/06/2019 Precordial pain, short lived, 3-5 minutes, nonexertional, no 09/28/2019 07/07/2020 evidence of stress-induced ischemia on dobutamine echo in [facility] 2018. Last Assessment & Plan: Assessment: [...] as of this encounter (statuses as of 05/07/2022)[facility] 07-07-2020 History of Past illness Narrative Problem Noted Date Resolved Date Asthma 07/07/2020 07/07/2020 Hypomagnesemia 10/22/2019 10/23/2019 Last Assessment & Plan: Replete [facility] [place] Preop cardiovascular exam 09/28/2019 10/06/2019 Precordial pain, short lived, 3-5 minutes, nonexertional, no 09/28/2019 07/07/2020 evidence of stress-induced ischemia on dobutamine echo in [facility] 2018. Last Assessment & Plan: Assessment: [...] as of this encounter (statuses as of 05/11/2022)[facility] 07-07-2020 History of Past illness Narrative Problem Noted Date Resolved Date Asthma 07/07/2020 07/07/2020 Hypomagnesemia 10/22/2019 10/23/2019 Last Assessment & Plan: Replete mag today Preop cardiovascular exam 09/28/2019 10/06/2019 Precordial pain, short lived, 3-5 minutes, nonexertional, no 09/28/2019 07/07/2020 evidence of stress-induced ischemia on dobutamine echo in [facility] 2018. Last Assessment & Plan: Assessment: [...] as of this encounter (statuses as of 05/23/2022)[facility] 07-07-2020 History of Past illness Narrative Problem Noted Date Resolved Date Asthma 07/07/2020 07/07/2020 Hypomagnesemia 10/22/2019 10/23/2019 Last Assessment & Plan: Replete mag today Preop cardiovascular exam 09/28/2019 10/06/2019 Precordial pain, short lived, 3-5 minutes, nonexertional, no 09/28/2019 07/07/2020 evidence of stress-induced ischemia on dobutamine echo in [facility] 2018. Last Assessment & Plan: Assessment: [...] as of this encounter (statuses as of 05/24/2022)[facility] 07-07-2020 History of Past illness Narrative Problem Noted Date Resolved Date Asthma 07/07/2020 07/07/2020 Hypomagnesemia 10/22/2019 10/23/2019 Last Assessment & Plan: Replete mag today Preop cardiovascular exam 09/28/2019 10/06/2019 Precordial pain, short lived, 3-5 minutes, nonexertional, no 09/28/2019 07/07/2020 evidence of stress-induced ischemia on dobutamine echo in [facility] 2018. Last Assessment & Plan: Assessment: [...] as of this encounter (statuses as of 05/25/2022)[facility] 07-07-2020 History of Past illness Narrative Problem Noted Date Resolved Date Asthma 07/07/2020 07/07/2020 Hypomagnesemia 10/22/2019 10/23/2019 Last Assessment & Plan: Replete mag today Preop cardiovascular exam 09/28/2019 10/06/2019 Precordial pain, short lived, 3-5 minutes, nonexertional, no 09/28/2019 07/07/2020 evidence of stress-induced ischemia on dobutamine echo in [facility] 2018. Last Assessment & Plan: Assessment: [...] The patient has not had a prior [facility] ocardiographic exam for comparison. History of total right hip arthroplasty 03/25/2019 07/07/2020 Primary osteoarthritis of right hip 03/13/201909/12 Hyperkalemia 07/27/2016 11/27/2018 Polycythemia 07/27/2016 11/27/2018 Overview: recheck Anxiety 12/14/2015 01/06/2021 documented as of this encounter (statuses as of 05/29/2022)[facility] 07-07-2020 History of Past illness Narrative Problem Noted Date Resolved Date Asthma 07/07/2020 07/07/2020 Hypomagnesemia 10/22/2019 10/23/2019 Last Assessment & Plan: Replete mag today Preop cardiovascular exam 09/28/2019 10/06/2019 Precordial pain, short lived, 3-5 minutes, nonexertional, no 09/28/2019 07/07/2020 evidence of stress-induced ischemia on dobutamine echo in [facility] 2018. Last Assessment & Plan: Assessment: [...] The patient has not had a prior [facility] ocardiographic exam for comparison. History of total right hip arthroplasty 03/25/2019 07/07/2020 Primary osteoarthritis of right hip 03/13/201909/12 Hyperkalemia 07/27/2016 11/27/2018 Polycythemia 07/27/2016 11/27/2018 Overview: recheck Anxiety 12/14/2015 01/06/2021 documented as of this encounter (statuses as of 05/30/2022)[facility] 07-07-2020 History of Past illness Narrative Problem Noted Date Resolved Date Asthma 07/07/2020 07/07/2020 Hypomagnesemia 10/22/2019 10/23/2019 Last Assessment & Plan: Replete mag today Preop cardiovascular exam 09/28/2019 10/06/2019 Precordial pain, short lived, 3-5 minutes, nonexertional, no 09/28/2019 07/07/2020 evidence of stress-induced ischemia on dobutamine echo in [facility] 2018. Last Assessment & Plan: Assessment: [...] as of this encounter (statuses as of 05/30/2022)[facility] 07-07-2020 History of Past illness Narrative Problem Noted Date Resolved Date Asthma 07/07/2020 07/07/2020 Hypomagnesemia 10/22/2019 10/23/2019 Last Assessment & Plan: Replete mag today Preop cardiovascular exam 09/28/2019 10/06/2019 Precordial pain, short lived, 3-5 minutes, nonexertional, no 09/28/2019 07/07/2020 evidence of stress-induced ischemia on dobutamine echo in [facility] 2018. Last Assessment & Plan: Assessment: [...] as of this encounter (statuses as of 06/01/2022)[facility] 07-07-2020 History of Past illness Narrative Problem Noted Date Resolved Date Asthma 07/07/2020 07/07/2020 Hypomagnesemia 10/22/2019 10/23/2019 Last Assessment & Plan: Replete mag today Preop cardiovascular exam 09/28/2019 10/06/2019 Precordial pain, short lived, 3-5 minutes, nonexertional, no 09/28/2019 07/07/2020 evidence of stress-induced ischemia on dobutamine echo in [facility] 2018. Last Assessment & Plan: Assessment: [...] patient has not had a prior [facility] ocardiographic exam for comparison. History of total right hip arthroplasty 03/25/2019 07/07/2020 Primary osteoarthritis of right hip 03/13/201909/12 Hyperkalemia 07/27/2016 11/27/2018 Polycythemia 07/27/2016 11/27/2018 Overview: recheck Anxiety 12/14/2015 01/06/2021 documented as of this encounter (statuses as of 06/04/2022)[facility] 07-07-2020 History of Past illness Narrative Problem Noted Date Resolved Date Asthma 07/07/2020 07/07/2020 Hypomagnesemia 10/22/2019 10/23/2019 Last Assessment & Plan: Replete mag today Preop cardiovascular exam 09/28/2019 10/06/2019 Precordial pain, short lived, 3-5 minutes, nonexertional, no 09/28/2019 07/07/2020 evidence of stress-induced ischemia on dobutamine echo in [facility] 2018. Last Assessment & Plan: Assessment: [...] as of this encounter (statuses as of 06/06/2022)[facility] 07-07-2020 History of Past illness Narrative Problem Noted Date Resolved Date Asthma 07/07/2020 07/07/2020 Hypomagnesemia 10/22/2019 10/23/2019 Last Assessment & Plan: Replete mag today Preop cardiovascular exam 09/28/2019 10/06/2019 Precordial pain, short lived, 3-5 minutes, nonexertional, no 09/28/2019 07/07/2020 evidence of stress-induced ischemia on dobutamine echo in [facility] 2018. Last Assessment & Plan: Assessment: [...] as of this encounter (statuses as of 06/06/2022)[facility] 07-07-2020 History of Past illness Narrative Problem Noted Date Resolved Date Asthma 07/07/2020 07/07/2020 Hypomagnesemia 10/22/2019 10/23/2019 Last Assessment & Plan: Replete mag today Preop cardiovascular exam 09/28/2019 10/06/2019 Precordial pain, short lived, 3-5 minutes, nonexertional, no 09/28/2019 07/07/2020 evidence of stress-induced ischemia on dobutamine echo in [facility] 2018. Last Assessment & Plan: Assessment: [...] as of this encounter (statuses as of 06/15/2022)[facility] 07-07-2020 History of Past illness Narrative Problem Noted Date Resolved Date Asthma 07/07/2020 07/07/2020 Hypomagnesemia 10/22/2019 10/23/2019 Last Assessment & Plan:Formatting of jaswinder walden note might be different from the original. Replete mag today Preop cardiovascular exam 09/28/2019 10/06/2019 Precordial pain, short lived, 3-5 minutes, nonexertional, no 09/28/2019 07/07/2020 evidence of stress-induced ischemia on dobutamine echo in [facility] 2018. Last Assessment & Plan:Formatting of [...] as of this encounter (statuses as of 07/06/2022)[facility] 07-07-2020 History of Past illness Narrative Problem Noted Date Resolved Date Asthma 07/07/2020 07/07/2020 Hypomagnesemia 10/22/2019 10/23/2019 Last Assessment & Plan:Formatting of jaswinder s note might be different from the original. Replete mag today Preop cardiovascular exam 09/28/2019 10/06/2019 Precordial pain, short lived, 3-5 minutes, nonexertional, no 09/28/2019 07/07/2020 evidence of stress-induced ischemia on dobutamine echo in [facility] 2018. Last Assessment & Plan:Formatting of [...] as of this encounter (statuses as of 07/09/2022)[facility] 07-07-2020 History of Past illness Narrative Problem Noted Date Resolved Date Asthma 07/07/2020 07/07/2020 Hypomagnesemia 10/22/2019 10/23/2019 Last Assessment & Plan:Formatting of jaswinder s note might be different from the original. Replete mag today Preop cardiovascular exam 09/28/2019 10/06/2019 Precordial pain, short lived, 3-5 minutes, nonexertional, no 09/28/2019 07/07/2020 evidence of stress-induced ischemia on dobutamine echo in [facility] 2018. Last Assessment & Plan:Formatting of [...] as of this encounter (statuses as of 07/18/2022)[facility] 07-07-2020 History of Past illness Narrative Problem Noted Date Resolved Date Asthma 07/07/2020 07/07/2020 Hypomagnesemia 10/22/2019 10/23/2019 Last Assessment & Plan:Formatting of jaswinder s note might be different from the original. Replete mag today Preop cardiovascular exam 09/28/2019 10/06/2019 Precordial pain, short lived, 3-5 minutes, nonexertional, no 09/28/2019 07/07/2020 evidence of stress-induced ischemia on dobutamine echo in [facility] 2018. Last Assessment & Plan:Formatting of [...] as of this encounter (statuses as of 07/24/2022)[facility] 07-07-2020 History of Past illness Narrative Problem Noted Date Resolved Date Asthma 07/07/2020 07/07/2020 Hypomagnesemia 10/22/2019 10/23/2019 Last Assessment & Plan:Formatting of jaswinder walden note might be different from the original. Replete mag today Preop cardiovascular exam 09/28/2019 10/06/2019 Precordial pain, short lived, 3-5 minutes, nonexertional, no 09/28/2019 07/07/2020 evidence of stress-induced ischemia on dobutamine echo in [facility] 2018. Last Assessment & Plan:Formatting of [...] The patient has not had a prior [facility] ocardiographic exam for comparison. History of total right hip arthroplasty 03/25/2019 07/07/2020 Primary osteoarthritis of right hip 03/13/201909/12 Hyperkalemia 07/27/2016 11/27/2018 Polycythemia 07/27/2016 11/27/2018 Overview:Formatting of this note might b e different from the original. recheck Anxiety 12/14/2015 01/06/2021 documented as of this encounter (statuses as of 07/31/2022)[facility] 07-07-2020 History of Past illness Narrative Problem Noted Date Resolved Date Asthma 07/07/2020 07/07/2020 Hypomagnesemia 10/22/2019 10/23/2019 Last Assessment & Plan:Formatting of jaswinder s note might be different from the original. Replete mag today Preop cardiovascular exam 09/28/2019 10/06/2019 Precordial pain, short lived, 3-5 minutes, nonexertional, no 09/28/2019 07/07/2020 evidence of stress-induced ischemia on dobutamine echo in [facility] 2018. Last Assessment & Plan:Formatting of [...] as of this encounter (statuses as of 08/10/2022)[facility] 07-07-2020 History of Past illness Narrative Problem Noted Date Resolved Date Asthma 07/07/2020 07/07/2020 Hypomagnesemia 10/22/2019 10/23/2019 Last Assessment & Plan:Formatting of jaswinder s note might be different from the original. Replete mag today Preop cardiovascular exam 09/28/2019 10/06/2019 Precordial pain, short lived, 3-5 minutes, nonexertional, no 09/28/2019 07/07/2020 evidence of stress-induced ischemia on dobutamine echo in [facility] 2018. Last Assessment & Plan:Formatting of [...] as of this encounter (statuses as of 08/16/2022)[facility] 07-07-2020 History of Past illness Narrative Problem Noted Date Resolved Date Asthma 07/07/2020 07/07/2020 Hypomagnesemia 10/22/2019 10/23/2019 Last Assessment & Plan:Formatting of jaswinder s note might be different from the original. Replete mag today Preop cardiovascular exam 09/28/2019 10/06/2019 Precordial pain, short lived, 3-5 minutes, nonexertional, no 09/28/2019 07/07/2020 evidence of stress-induced ischemia on dobutamine echo in [facility] 2018. Last Assessment & Plan:Formatting of [...] The patient has not had a prior [facility] ocardiographic exam for comparison. History of total right hip arthroplasty 03/25/2019 07/07/2020 Primary osteoarthritis of right hip 03/13/201909/12 Hyperkalemia 07/27/2016 11/27/2018 Polycythemia 07/27/2016 11/27/2018 Overview:Formatting of this note might b e different from the original. recheck Anxiety 12/14/2015 01/06/2021 documented as of this encounter (statuses as of 08/31/2022)[facility] 07-07-2020 History of Past illness Narrative Problem Noted Date Resolved Date Asthma 07/07/2020 07/07/2020 Hypomagnesemia 10/22/2019 10/23/2019 Last Assessment & Plan:Formatting of jaswinder walden note might be different from the original. Replete mag today Preop cardiovascular exam 09/28/2019 10/06/2019 Precordial pain, short lived, 3-5 minutes, nonexertional, no 09/28/2019 07/07/2020 evidence of stress-induced ischemia on dobutamine echo in [facility] 2018. Last Assessment & Plan:Formatting of [...] The patient has not had a prior [facility] ocardiographic exam for comparison. History of total right hip arthroplasty 03/25/2019 07/07/2020 Primary osteoarthritis of right hip 03/13/201909/12 Hyperkalemia 07/27/2016 11/27/2018 Polycythemia 07/27/2016 11/27/2018 Overview:Formatting of this note might b e different from the original. recheck Anxiety 12/14/2015 01/06/2021 documented as of this encounter (statuses as of 09/05/2022)[facility] 07-07-2020 History of Past illness Narrative Problem Noted Date Resolved Date Asthma 07/07/2020 07/07/2020 Hypomagnesemia 10/22/2019 10/23/2019 Last Assessment & Plan:Formatting of jaswinder s note might be different from the original. Replete mag today Preop cardiovascular exam 09/28/2019 10/06/2019 Precordial pain, short lived, 3-5 minutes, nonexertional, no 09/28/2019 07/07/2020 evidence of stress-induced ischemia on dobutamine echo in [facility] 2018. Last Assessment & Plan:Formatting of [...] as of this encounter (statuses as of 09/06/2022)[facility] 07-07-2020 History of Past illness Narrative Problem Noted Date Resolved Date Asthma 07/07/2020 07/07/2020 Hypomagnesemia 10/22/2019 10/23/2019 Last Assessment & Plan:Formatting of jaswinder s note might be different from the original. Replete mag today Preop cardiovascular exam 09/28/2019 10/06/2019 Precordial pain, short lived, 3-5 minutes, nonexertional, no 09/28/2019 07/07/2020 evidence of stress-induced ischemia on dobutamine echo in [facility] 2018. Last Assessment & Plan:Formatting of [...] as of this encounter (statuses as of 09/24/2022)[facility] 07-07-2020 History of Past illness Narrative Problem Noted Date Resolved Date Asthma 07/07/2020 07/07/2020 Hypomagnesemia 10/22/2019 10/23/2019 Last Assessment & Plan:Formatting of jaswinder walden note might be different from the original. Replete mag today Preop cardiovascular exam 09/28/2019 10/06/2019 Precordial pain, short lived, 3-5 minutes, nonexertional, no 09/28/2019 07/07/2020 evidence of stress-induced ischemia on dobutamine echo in [facility] 2018. Last Assessment & Plan:Formatting of [...] The patient has not had a prior [facility] ocardiographic exam for comparison. History of total right hip arthroplasty 03/25/2019 07/07/2020 Primary osteoarthritis of right hip 03/13/201909/12 Hyperkalemia 07/27/2016 11/27/2018 Polycythemia 07/27/2016 11/27/2018 Overview:Formatting of this note might b e different from the original. recheck Anxiety 12/14/2015 01/06/2021 documented as of this encounter (statuses as of 09/30/2022)[facility] 07-07-2020 History of Past illness Narrative Problem Noted Date Resolved Date Asthma 07/07/2020 07/07/2020 Hypomagnesemia 10/22/2019 10/23/2019 Last Assessment & Plan:Formatting of jaswinder walden note might be different from the original. Replete mag today Preop cardiovascular exam 09/28/2019 10/06/2019 Precordial pain, short lived, 3-5 minutes, nonexertional, no 09/28/2019 07/07/2020 evidence of stress-induced ischemia on dobutamine echo in [facility] 2018. Last Assessment & Plan:Formatting of [...] The patient has not had a prior [facility] ocardiographic exam for comparison. History of total right hip arthroplasty 03/25/2019 07/07/2020 Primary osteoarthritis of right hip 03/13/201909/12 Hyperkalemia 07/27/2016 11/27/2018 Polycythemia 07/27/2016 11/27/2018 Overview:Formatting of this note might b e different from the original. recheck Anxiety 12/14/2015 01/06/2021 documented as of this encounter (statuses as of 10/02/2022)[facility] 07-07-2020 History of Past illness Narrative Problem Noted Date Resolved Date Asthma 07/07/2020 07/07/2020 Hypomagnesemia 10/22/2019 10/23/2019 Last Assessment & Plan:Formatting of jaswinder s note might be different from the original. Replete mag today Preop cardiovascular exam 09/28/2019 10/06/2019 Precordial pain, short lived, 3-5 minutes, nonexertional, no 09/28/2019 07/07/2020 evidence of stress-induced ischemia on dobutamine echo in [facility] 2018. Last Assessment & Plan:Formatting of [...] as of this encounter (statuses as of 11/26/2022)[facility] 07-07-2020 History of Past illness Narrative Problem Noted Date Resolved Date Asthma 07/07/2020 07/07/2020 Hypomagnesemia 10/22/2019 10/23/2019 Last Assessment & Plan:Formatting of jaswinder s note might be different from the original. Replete mag today Preop cardiovascular exam 09/28/2019 10/06/2019 Precordial pain, short lived, 3-5 minutes, nonexertional, no 09/28/2019 07/07/2020 evidence of stress-induced ischemia on dobutamine echo in [facility] 2018. Last Assessment & Plan:Formatting of [...] as of this encounter (statuses as of 12/15/2022)[facility] 07-07-2020 History of Past illness Narrative Problem Noted Date Resolved Date Asthma 07/07/2020 07/07/2020 Hypomagnesemia 10/22/2019 10/23/2019 Last Assessment & Plan:Formatting of jaswinder walden note might be different from the original. Replete mag today Preop cardiovascular exam 09/28/2019 10/06/2019 Precordial pain, short lived, 3-5 minutes, nonexertional, no 09/28/2019 07/07/2020 evidence of stress-induced ischemia on dobutamine echo in [facility] 2018. Last Assessment & Plan:Formatting of [...] The patient has not had a prior [facility] ocardiographic exam for comparison. History of total right hip arthroplasty 03/25/2019 07/07/2020 Primary osteoarthritis of right hip 03/13/201909/12 Hyperkalemia 07/27/2016 11/27/2018 Polycythemia 07/27/2016 11/27/2018 Overview:Formatting of this note might b e different from the original. recheck Anxiety 12/14/2015 01/06/2021 documented as of this encounter (statuses as of 01/01/2023)[facility] 07-07-2020 History of Past illness Narrative Problem Noted Date Resolved Date Asthma 07/07/2020 07/07/2020 Hypomagnesemia 10/22/2019 10/23/2019 Last Assessment & Plan:Formatting of jaswinder walden note might be different from the original. Replete mag today Preop cardiovascular exam 09/28/2019 10/06/2019 Precordial pain, short lived, 3-5 minutes, nonexertional, no 09/28/2019 07/07/2020 evidence of stress-induced ischemia on dobutamine echo in [facility] 2018. Last Assessment & Plan:Formatting of [...] as of this encounter (statuses as of 01/01/2023)[facility] Evaluation + Plan noteNo data available for this sectionA[facility] Evaluation note Diagnosis Recurrent major depression in partial [place] [facility] ([facility]) Major depressive disorder, recurrent epi sode, in partial or unspecified remission documented in [facility] encounterCle[facility] note Diagnosis Dyspnea on exertion- Primary Other dyspnea and respiratory abnormalit y Smoker Tobacco use disorder Encounter for screening for malignant ne oplasm of lung documented in [facility] encounterCl[facility] ClinicEvaluation note Diagnosis Wheezing documented in this [facility] Diagnosis DIAZ (dyspnea on exertion)- Primary Other dyspnea and respiratory abnormalit y Essential hypertension Unspecified essential hypertension Coronary artery disease involving chickahominy indians-eastern division coronary artery of chickahominy indians-eastern division heart without angina pectoris Mixed hyperlipidemia Smoker Tobacco use disorder Stenosis of carotid artery, unspecified laterality documented in this encounterCleclevel[facility] Clinic[facility] note Diagnosis Recurrent major depression in partial mission ([facility]) Major depressive disorder, recurrent epi sode, in partial or unspecified remission documented in this [facility]Clecle[facility] note Diagnosis Chronic bronchitis, unspecified chronic bronchitis type ([facility])- Primary Recurrent major depression in [facility] ([facility]) Major depressive disorder, recurrent epi sode, in partial or unspecified remission Gastroesophageal reflux disease, unspeci fied whether esophagitis present Need for vaccination Need for prophylactic vaccination and in oculation against unspecified single disease Bipolar affective disorder, current epis ode mixed, current episode severity unspecified ([facility]) PAD (peripheral artery disease) ([facility]) Peripheral vascular disease, unspecified documented in this encounterL[facility] HospitalEvaluation [facility] Diagnosis DIAZ (dyspnea on exertion) Other dyspnea and respiratory abnormalit y documented in this [facility]Cle[facility] note Diagnosis Tobacco use disorder- Primary documented in this encounterClecle[facility] Clinic[facility] note Diagnosis Smoker- Primary Tobacco use disorder Encounter for screening for malignant ne oplasm of lung documented in this [facility]Cle[facility] note Diagnosis Chronic bronchitis, unspecified chronic bronchitis type ([facility])- Primary documented in this [facility]Cle[facility] note Diagnosis Dyspnea on exertion Other dyspnea and respiratory abnormalit y documented in this [facility]Cle[facility] note Diagnosis Asthma-COPD overlap syndrome ([facility])- Prim gabriel Wheezing Smoking Tobacco use disorder documented in this [facility]Cle[facility] Diagnosis Recurrent major depression in [place] ([facility]) Major depressive disorder, recurrent epi sode, in partial or unspecified remission documented in this [facility]Cle[facility] note Diagnosis SOB (shortness of breath)- Primary Shortness of breath documented in this encounterCleveland ClinicEvaluation note Diagnosis SOB (shortness of breath) Shortness of breath documented in this encounterClarington ClinicEvaluation note Diagnosis Recurrent major depression in partial [place] (HCC) Major depressive disorder, recurrent epi sode, in partial or unspecified remission documented in this encounterClarington ClinicEvaluation note Diagnosis Lung nodules- Primary Other nonspecific abnormal finding of ilene ng field Current smoker Tobacco use disorder documented in this encounterClarington ClinicEvaluation note Diagnosis Situational anxiety- Primary Other anxiety states Allergic conjunctivitis of both eyes Other chronic allergic conjunctivitis Recurrent major depression in partial [place] (HCC) Major depressive disorder, recurrent epi sode, in partial or unspecified remission Essential hypertension Unspecified essential hypertension Coronary artery disease involving chickahominy indians-eastern division coronary artery of chickahominy indians-eastern division heart without angina pectoris Chronic bronchitis, unspecified chronic bronchitis type ([facility]) Encounter for immunization Need for other specified prophylactic va ccination against single bacterial disease Mixed hyperlipidemia Lung nodule Solitary pulmonary nodule Screening for osteoporosis Special screening for osteoporosis Asymptomatic menopause documented in this encounterLima City HospitalEvaluation note Diagnosis Thrush (oral)- Primary Prediabetes Other abnormal glucose Essential hypertension Unspecified essential hypertension documented in this encounterClarington ClinicEvaluation note Diagnosis Peripheral arterial disease (HCC)- Prima ry Peripheral vascular disease, unspecified documented in this encounterClarington ClinicEvaluation note Diagnosis PAD (peripheral artery disease) ([facility]) Peripheral vascular disease, unspecified documented in this encounterLima City HospitalEvaluation note Diagnosis Hemoptysis- Primary Hemoptysis, unspecified Stage 3 severe COPD by GOLD classificati on ([facility]) Cigarette smoker Tobacco use disorder documented in this encounterLima City HospitalEvaluation note Diagnosis Alcohol withdrawal syndrome without comp lication ([facility])- Primary documented in this encounterCleSt[facility] Discharge instructionsNo data available for this [facility] Yolanda Bear RN: PERFORM Event Display: [place] [facility] Patient Summary Authored Date: [id number] Discharge Instructions Thank you for allowing [facility] to assist you with your healthcare needs. [...] MD When Within 2-4 days Where: [address] [place], [place] [id number]- Allergies NKA Medications Please ask your primary [...] may report side effects to FDA at [phone]. What other drugs will affect budesonide and formoterol? Sometimes it is not safe to use certain medications at the same time. Some drugs can affect your blood levels of other drugs you take, which may increase side effects or make the medications less effective. Many drugs can affect budesonide and formoterol. This includes prescription and uypk-klh-mnzvsmg medicines, vitamins, and herbal products. Not all [...] to ensure that the information provided by [employer]. ('[employer]') is accurate, up-to-date, and complete, but no guarantee is made to that effect. Drug information contained herein may be time sensitive. [employer] information has been compiled for use by healthcare practitioners and consumers in the [place] and therefore [employer] does not warrant that uses outside of the [place] are appropriate, unless specifically indicated otherwise. [employer] drug information does not endorse drugs, diagnose patients or recommend therapy. [employer] drug information is an informational resource designed [...] effective or appropriate for any given patient. [employer] does not assume any responsibility for any aspect of healthcare administered with the aid of information [employer] provides. The information contained herein is not intended to cover all possible uses, directions, precautions, warnings, drug interactions, allergic reactions, or adverse effects. If you have questions about the drugs you are taking, check with your doctor, nurse or pharmacist. Copyright 0735-4825 [employer]. Version: 9.02. Revision Date: 07/08/2019. prednisone (PRED [...] may report side effects to FDA at 7-470-JZJ-8115. What other drugs will affect prednisone? Sometimes [...] may affect prednisone. This includes prescription and pcjd-esc-lezhiwv medicines, vitamins, and herbal products. Not all [...] to ensure that the information provided by [employer]') is accurate, up-to-date, and complete, but no guarantee is made to that effect. Drug information contained herein may be time sensitive. [employer] information has been compiled for use by healthcare practitioners and consumers in the [place] and therefore [employer] does not warrant that uses outside of the [place] are appropriate, unless specifically indicated otherwise. [employer] drug information does not endorse drugs, diagnose patients or recommend therapy. [employer] drug information is an informational resource designed [...] effective or appropriate for any given patient. [employer] does not assume any responsibility for any aspect of healthcare administered with the aid of information [employer] provides. The information contained herein is not intended to cover all possible uses, directions, precautions, warnings, drug interactions, allergic reactions, or adverse effects. If you have questions about the drugs you are taking, check with your doctor, nurse or pharmacist. Copyright 2278-3323 [employer]. Version: 10.. Revision Date: 02/05/2019. doxycycline (oral/injection) [...] or life-threatening conditions such as anthrax or [place] Ch[place] spotted fever. The benefit of treating a [...] may report side effects to FDA at 5-354-AUS-1984. What other drugs will affect doxycycline? Sometimes it is not safe to use certain medications at the same time. Some drugs can affect your blood levels of other drugs you take, which may increase side effects or make the medications less effective. Other drugs may affect doxycycline, including prescription and hxlj-amq-aqjffxa medicines, vitamins, and herbal products. Tell your [...] to ensure that the information provided by [employer]') is accurate, up-to-date, and complete, but no guarantee is made to that effect. Drug information contained herein may be time sensitive. [employer] information has been compiled for use by healthcare practitioners and consumers in the [place] and therefore [employer] does not warrant that uses outside of the [place] are appropriate, unless specifically indicated otherwise. [employer] drug information does not endorse drugs, diagnose patients or recommend therapy. [employer] drug information is an informational resource designed [...] effective or appropriate for any given patient. [employer] does not assume any responsibility for any aspect of healthcare administered with the aid of information [employer] provides. The information contained herein is not intended to cover all possible uses, directions, precautions, warnings, drug interactions, allergic reactions, or adverse effects. If you have questions about the drugs you are taking, check with your doctor, nurse or pharmacist. Copyright 6033-3791 [employer]. Version: .. Revision Date: 09/14/2020. Education Materials [...] your ankles gets worse Dizziness or weakness 4773-7338 [employer]. [address] [place] [address]. All rights reserved. This information is not intended as a substitute for professional medical care. Always follow your healthcare professional's instructions. Additional Information VACCINATE! IT SAVES LIVES! Members of the community who have not yet received the COVID-19 vaccine and would like to receive itcan visit one of [facility] vaccine clinics. There are many vaccine clinic locations within the [facility].For locations and available times, please visit [email or web address]. It is importantto note that some COVID mobile vaccine clinics are held outdoors and may be canceled in rainy or stormy conditions. To learn more about pediatric vaccinations (ages 5-11), we invite you to visit the [facility] webpage. [email or web address] [email or web address] To learn more about the COVID-19 vaccine, we invite you to visit the [facility] website for a list of frequently asked questions. [email or web address]_Ui [email or web address] [facility] OneChart Patient Portal Access Instructions: Stay connected with your healthcare team and access your personal medical information anytime with the [employer] Patient Portal. If you would like a full copy of your medical records please contact the [facility] Medical Records Department Saturday through Saturday between 8a.m. and 4:30p.m. Please follow the directions below to access the portal: 1.Access the email account you provided upon registration to the [facility].2.Look for an invitation email from [facility].3.Open the email and access the invitation link: Accept Invitation to [facility]4.Fill in the required randle to create your account. Sign into www.[employer] with your username and password that you [...] who you will allow to register onthe [employer] Patient Portal for access to your information. You can also access the [facility] Patient Portal on the [employer]. Simply click on Health Records under Health [...] Call your local pharmacy or go to [email or web address] to find one close to you.3.Make use of household items: Use cat litter or old coffee grounds to dispose medications if other options are not available. Mix your drugs with these household products, seal them in an airtight container and throwit into the garbage. Call [facility]: [phone] to be sure your drugs can be [...] aware that I should contact my doctor. 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 Signature: Date/Time: Relationship to Patient: Witness Name/Signature: Date/Time: ZINA GLOVER DO: SIGN, VERIFY Event Display: EKG [ED AOH] - CV Authored Date: [id number] [facility] Progress noteNo data available for this sectionAcmc Healthcare System [facility]igh Reason for referral (narrative)Outpatient Procedure (Routine) - Authorized Specialty Diagnoses / Procedures Referred By Contact Refer red To Contact HEART AND VASCULAR Diagnoses DIAZ (dyspnea on exertion) Tracy Ramires, [facility] Procedures ECHO ECHO TTHRC R-T 2D W/WOM-MODE COMPL SPEC&COLR D [facility] [place] [address] [place] [address] [place] [address] Referral ID Status Reason Start Expiration Visits Visits Date Date Requested Authorized [id number] Authorized Auto-Generat 04/30/2022 04/30/2023 1 1 ed Referral [facility] for referral (narrative)Outpatient Procedure (Routine) - Authorized Specialty Diagnoses / Procedures Referred By Contact Refer red To Contact [facility] Diagnoses SOB (shortness of breath) Margaret Shrestha, [facility] [place] Procedures OXIMETRY WITH AMBULATION NONINVASIVE EAR/PULSE OXIMETRY SRIDHAR ULRICH MD [address] [place] [id number] [place] [address] Referral ID Status Reason Start Expiration Visits Visits Date Date Requested Authorized [id number] Authorized Auto-Generat 07/06/2022 08/05/2023 1 1 ed Referral [facility] for referral (narrative)Outpatient Procedure (Routine) - Authorized Specialty Diagnoses / Procedures Referred By Contact Refer red To Contact HEART AND VASCULAR Diagnoses Peripheral arterial disease (HCC) Tawny Self, [facility] Procedures PVR LEG SHERIN VAS LAB NON-INVASIVE PHYSIOLOGIC STUDY EXTREMITY 3 LEVLS DO [place] [address] [place] [address] [place] [address] Referral ID Status Reason Start Expiration Visits Visits Date Date Requested Authorized [id number] Authorized Auto-Generat 11/10/2022 1 1 ed Referral 2 [facility] for referral (narrative)Outpatient Procedure (Routine) - Pending Review Specialty Diagnoses / Procedures Referred By Contact Refer red To Contact HEART AND VASCULAR Diagnoses PAD (peripheral artery disease) (HCC) Tawny Self, [facility] Procedures PVR LEG SHERIN VAS LAB NON-INVASIVE PHYSIOLOGIC STUDY EXTREMITY 3 LEVLS DO [place] [address] [place] [address] [place] [address] Referral ID Status Reason Start Expiration Visits Visits Date Date Requested Authorized [id number] Pending Auto-Generat 10/02/2023 1 1 Review ed Referral 2 [facility] for visit NarrativeOutpatient Procedure (Routine) - Closed Specialty Diagnoses / Procedures Referred By Contact Refer red To Contact HEART AND VASCULAR Diagnoses DIAZ (dyspnea on exertion) Tracy Ramires, [facility] Procedures ECHO ECHO TTHRC R-T 2D W/WOM-MODE COMPL SPEC&COLR D CIVIL LITIGATION ATTORNEY.[facility] [place] [address] [place] [address] [place] [address] Referral ID Status Reason Start Date Expiration Date Visits V isits Requested Authorized [id number] Closed Auto-Generate 04/30/2022 04/30/2023 1 1 d Referral [facility] for visit NarrativeOutpatient Procedure (Routine) - Closed Specialty Diagnoses / Procedures Referred By Contact Refer red To Contact [facility] Diagnoses SOB (shortness of breath) Margaret Shrestha, [facility] [place] Procedures OXIMETRY WITH AMBULATION NONINVASIVE EAR/PULSE OXIMETRY SRIDHAR ULRICH MD [address] [place] [address] [place] [address] Referral ID Status Reason Start Date Expiration Date Visits V isits Requested Authorized [id number] Closed Auto-Generate 07/06/2022 08/05/2023 1 1 d Referral [facility] Summary Purpose Family History No Family History Records FoundNo Family History Records FoundNo Family History Records FoundNo Family History Records FoundNo Family History Records FoundNo Family History Records Found Advance Directives No Advanced Directives Records Found Documents on File Type Date Recorded 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 Advance Directive(s) 08/25/2021 8:30 AM Advance Directive(s) 07/27/2021 5:44 PM Advance Directive(s) 10/20/2019 11:23 AM Advance Directive(s) 10/05/2019 10:43 AM Advance Directive(s) 03/25/2019 7:55 AM Advance Directive(s) 01/06/2019 12:24 PM Advance Directive(s) 03/19/2017 9:41 AM Documents on File Type Date Recorded 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 Advance Directive(s) 08/25/2021 8:30 AM [...] OFFICE/OUTPATIENT NEW HIGH MDM 60-74 MINUTES MELISSA Guillen.ENERGY CONSERVATION SPECIALIST [address] [place] [address] Referral ID Status Reason Start Expiration Visits Visits Date Date Requested Authorized [id number] Authorized PCP Requested 03/13/2022 03/13/2023 1 1 Referral Specialty Diagnoses / Procedures Referred By Contact Refer red To Contact [facility] Diagnoses Dyspnea on exertion Savanna Kenny [facility] [place] Procedures LUNG DIFFUSION CAPACITY (DLCO) DIFFUSING CAPACITY MELISSA Guillen.ENERGY CONSERVATION SPECIALIST [address] [place] [address] [place] [address] Referral ID Status Reason Start Expiration Visits Visits Date Date Requested Authorized [id number] Authorized Auto-Generat 03/13/2022 04/12/2023 1 1 ed Referral Specialty Diagnoses / Procedures Referred By Contact Refer red To Contact [facility] Diagnoses Dyspnea on exertion Savanna Kenny [facility] [place] Procedures SPIROMETRY - BASELINE AND POST DILATOR BRNCDILAT RSPSE SPMTRY PRE&POST-BRNCDILAT ADMN Crystal, CIVIL LITIGATION ATTORNEY.ENERGY CONSERVATION SPECIALIST [address] [place] [id number] [place] [address] Referral ID Status Reason Start Expiration Visits Visits Date Date Requested Authorized [id number] Authorized Auto-Generat 03/13/2022 04/12/2023 1 1 ed Referral Specialty Diagnoses / Procedures Referred By Contact Refer red To Contact Vascular Surgery Diagnoses PAD (peripheral artery disease) ([facility]) Ulises Hermosillo MD Procedures CONSULT TO VASCULAR SURGERY OFFICE/OUTPATIENT [facility] 60-74 MINUTES [address] [place] [address] Referral ID Status Reason Start Expiration Visits Visits Date Date Requested Authorized [id number] Authorized PCP Requested 05/11/2022 05/11/2023 1 1 Referral Specialty Diagnoses / Procedures Referred By Contact Refer red To Contact HEART AND VASCULAR Diagnoses PAD (peripheral artery disease) ([facility]) Ulises Hermosillo, [facility] Procedures PVR LEG SHERIN VAS LAB NON-INVASIVE PHYSIOLOGIC STUDY EXTREMITY 3 ALPHONSO CASTILLO [place] [address] [facility] [address] [place] [address] [place] [address] Referral ID Status Reason Start Expiration Visits Visits Date Date Requested Authorized [id number] Authorized Auto-Generat 05/11/2022 05/11/2023 1 1 ed Referral Specialty Diagnoses / Procedures Referred By Contact Refer red To Contact CT IMAGING Diagnoses Smoker Encounter for screening for malignant neoplasm of lung Savanna Kenny, Ct Imaging Procedures CT LUNG SCREEN WO IVCON COMPUTED TOMOGRAPHY THORAX LW DOSE LNG CA SCR C- CIVIL LITIGATION ATTORNEY.ENERGY CONSERVATION SPECIALIST [address] [place] [address] Referral ID Status Reason Start Expiration Visits Visits Date Date Requested Authorized [id number] Pending Auto-Generat 05/30/2022 06/29/2023 1 1 Review ed Referral Additional Source Comments INFORMATION SOURCE (unrecognized section and content) DATE CREATED AUTHOR AUTHOR'S ORGANIZ ATION 04/29/2018 [facility] DATE CREATED AUTHOR AUTHOR'S ORGANIZATIO N 05/04/2018 [facility] DATE CREATED AUTHOR AUTHOR'S ORGANIZATIO N 01/05/2022 [facility] DATE CREATED AUTHOR AUTHOR'S ORGANIZATIO N 08/11/2022 [facility] DATE CREATED AUTHOR AUTHOR'S ORGANIZATIO N 12/29/2022 [facility] ([place]) DATE CREATED AUTHOR AUTHOR'S ORGANIZATIO N 01/02/2023 [facility] Source Comments (unrecognized section an d content) [...] prosecute any alcohol or drug abuse patient. [facility] HospitalIn the event this information is protected by t Federal Confidentiality of Alcohol and Drug Abuse Patient Records regulations: This information has been disclosed to you from records protected by Federal confid entiality rules ( The Federal rules restrict any use of th e information to criminally investigate or prosecute any alcohol or drug abuse candice ent. [facility]In the event this information is protected by the Federal Confidentiality of Alcohol and Drug Abuse Patient Records regulations: This inform ation has been disclosed to you from records protected by Federal confidentiality rul es ( The Federal rules restrict any use of the in formation to criminally investigate or prosecute any alcohol or drug abuse candice ent. [facility]In the event this information is protected by the Federal Confidentiality of Alcohol and Drug Abuse Patient Records regulations: This inform ation has been disclosed to you from records protected by Federal confidentiality rul es ( The Federal rules restrict any use of the in formation to criminally investigate or prosecute any alcohol or drug abuse candice ent. [facility] HospitalIn the event this information is protected by the Federal Confidentiality of Alcohol and Drug Abuse Patient Records regulations: This inform ation has been disclosed to you from records protected by Federal confidentiality rul es ( The Federal rules restrict any use of the in formation to criminally investigate or prosecute any alcohol or drug abuse candice ent. [facility] the event this information is protected by the Federal Confidentiality of Alcohol and Drug Abuse Patient Records regulations: This inform ation has been disclosed to you from records protected by Federal confidentiality rul es ( The Federal rules restrict any use of the in formation to criminally investigate or prosecute any alcohol or drug abuse candice ent. [facility]In the event this information is protected by the Federal Confidentiality of Alcohol and Drug Abuse Patient Records regulations: This inform ation has been disclosed to you from records protected by Federal confidentiality rul es ( The Federal rules restrict any use of the in formation to criminally investigate or prosecute any alcohol or drug abuse candice ent. [facility] the event this information is protected by the Federal Confidentiality of Alcohol and Drug Abuse Patient Records regulations: This inform ation has been disclosed to you from records protected by Federal confidentiality rul es ( The Federal rules restrict any use of the in formation to criminally investigate or prosecute any alcohol or drug abuse candice ent. [facility] the event this information is protected by the Federal Confidentiality of Alcohol and Drug Abuse Patient Records regulations: This inform ation has been disclosed to you from records protected by Federal confidentiality rul es ( The Federal rules restrict any use of the in formation to criminally investigate or prosecute any alcohol or drug abuse candice ent. [facility] the event this information is protected by the Federal Confidentiality of Alcohol and Drug Abuse Patient Records regulations: This inform ation has been disclosed to you from records protected by Federal confidentiality rul es ( The Federal rules restrict any use of the in formation to criminally investigate or prosecute any alcohol or drug abuse candice ent. [facility] the event this information is protected by the Federal Confidentiality of Alcohol and Drug Abuse Patient Records regulations: This inform ation has been disclosed to you from records protected by Federal confidentiality rul es ( The Federal rules restrict any use of the in formation to criminally investigate or prosecute any alcohol or drug abuse candice ent. [facility] the event this information is protected by the Federal Confidentiality of Alcohol and Drug Abuse Patient Records regulations: This inform ation has been disclosed to you from records protected by Federal confidentiality rul es ( The Federal rules restrict any use of the in formation to criminally investigate or prosecute any alcohol or drug abuse candice ent. [facility] the event this information is protected by the Federal Confidentiality of Alcohol and Drug Abuse Patient Records regulations: This inform ation has been disclosed to you from records protected by Federal confidentiality rul es ( The Federal rules restrict any use of the in formation to criminally investigate or prosecute any alcohol or drug abuse candice ent. [facility] the event this information is protected by the Federal Confidentiality of Alcohol and Drug Abuse Patient Records regulations: This inform ation has been disclosed to you from records protected by Federal confidentiality rul es ( The Federal rules restrict any use of the in formation to criminally investigate or prosecute any alcohol or drug abuse candice ent. [facility] the event this information is protected by the Federal Confidentiality of Alcohol and Drug Abuse Patient Records regulations: This inform ation has been disclosed to you from records protected by Federal confidentiality rul es ( The Federal rules restrict any use of the in formation to criminally investigate or prosecute any alcohol or drug abuse candice ent. [facility] the event this information is protected by the Federal Confidentiality of Alcohol and Drug Abuse Patient Records regulations: This inform ation has been disclosed to you from records protected by Federal confidentiality rul es ( The Federal rules restrict any use of the in formation to criminally investigate or prosecute any alcohol or drug abuse candice ent. [facility] the event this information is protected by the Federal Confidentiality of Alcohol and Drug Abuse Patient Records regulations: This inform ation has been disclosed to you from records protected by Federal confidentiality rul es ( The Federal rules restrict any use of the in formation to criminally investigate or prosecute any alcohol or drug abuse candice ent. [facility] the event this information is protected by the Federal Confidentiality of Alcohol and Drug Abuse Patient Records regulations: This inform ation has been disclosed to you from records protected by Federal confidentiality rul es ( The Federal rules restrict any use of the in formation to criminally investigate or prosecute any alcohol or drug abuse candice ent. [facility] the event this information is protected by the Federal Confidentiality of Alcohol and Drug Abuse Patient Records regulations: This inform ation has been disclosed to you from records protected by Federal confidentiality rul es ( The Federal rules restrict any use of the in formation to criminally investigate or prosecute any alcohol or drug abuse candice ent. [facility] the event this information is protected by the Federal Confidentiality of Alcohol and Drug Abuse Patient Records regulations: This inform ation has been disclosed to you from records protected by Federal confidentiality rul es ( The Federal rules restrict any use of the in formation to criminally investigate or prosecute any alcohol or drug abuse candice ent. [facility] the event this information is protected by the Federal Confidentiality of Alcohol and Drug Abuse Patient Records regulations: This inform ation has been disclosed to you from records protected by Federal confidentiality rul es ( The Federal rules restrict any use of the in formation to criminally investigate or prosecute any alcohol or drug abuse candice ent. [facility] the event this information is protected by the Federal Confidentiality of Alcohol and Drug Abuse Patient Records regulations: This inform ation has been disclosed to you from records protected by Federal confidentiality rul es ( The Federal rules restrict any use of the in formation to criminally investigate or prosecute any alcohol or drug abuse candice ent. [facility] the event this information is protected by the Federal Confidentiality of Alcohol and Drug Abuse Patient Records regulations: This inform ation has been disclosed to you from records protected by Federal confidentiality rul es ( The Federal rules restrict any use of the in formation to criminally investigate or prosecute any alcohol or drug abuse candice ent. [facility] the event this information is protected by the Federal Confidentiality of Alcohol and Drug Abuse Patient Records regulations: This inform ation has been disclosed to you from records protected by Federal confidentiality rul es ( The Federal rules restrict any use of the in formation to criminally investigate or prosecute any alcohol or drug abuse candice ent. [facility] the event this information is protected by the Federal Confidentiality of Alcohol and Drug Abuse Patient Records regulations: This inform ation has been disclosed to you from records protected by Federal confidentiality rul es ( The Federal rules restrict any use of the in formation to criminally investigate or prosecute any alcohol or drug abuse candice ent. [facility] the event this information is protected by the Federal Confidentiality of Alcohol and Drug Abuse Patient Records regulations: This inform ation has been disclosed to you from records protected by Federal confidentiality rul es ( The Federal rules restrict any use of the in formation to criminally investigate or prosecute any alcohol or drug abuse candice ent. [facility]In the event this information is protected by the Federal Confidentiality of Alcohol and Drug Abuse Patient Records regulations: This inform ation has been disclosed to you from records protected by Federal confidentiality rul es ( The Federal rules restrict any use of the in formation to criminally investigate or prosecute any alcohol or drug abuse candice ent. [facility] the event this information is protected by the Federal Confidentiality of Alcohol and Drug Abuse Patient Records regulations: This inform ation has been disclosed to you from records protected by Federal confidentiality rul es ( The Federal rules restrict any use of the in formation to criminally investigate or prosecute any alcohol or drug abuse candice ent. [facility]In the event this information is protected by the Federal Confidentiality of Alcohol and Drug Abuse Patient Records regulations: This inform ation has been disclosed to you from records protected by Federal confidentiality rul es ( The Federal rules restrict any use of the in formation to criminally investigate or prosecute any alcohol or drug abuse candice ent. [facility]In the event this information is protected by the Federal Confidentiality of Alcohol and Drug Abuse Patient Records regulations: This inform ation has been disclosed to you from records protected by Federal confidentiality rul es ( The Federal rules restrict any use of the in formation to criminally investigate or prosecute any alcohol or drug abuse candice ent. [facility]In the event this information is protected by the Federal Confidentiality of Alcohol and Drug Abuse Patient Records regulations: This inform ation has been disclosed to you from records protected by Federal confidentiality rul es ( The Federal rules restrict any use of the in formation to criminally investigate or prosecute any alcohol or drug abuse candice ent. [facility]In the event this information is protected by the Federal Confidentiality of Alcohol and Drug Abuse Patient Records regulations: This inform ation has been disclosed to you from records protected by Federal confidentiality rul es ( The Federal rules restrict any use of the in formation to criminally investigate or prosecute any alcohol or drug abuse candice ent. [facility]In the event this information is protected by the Federal Confidentiality of Alcohol and Drug Abuse Patient Records regulations: This inform ation has been disclosed to you from records protected by Federal confidentiality rul es ( The Federal rules restrict any use of the in formation to criminally investigate or prosecute any alcohol or drug abuse candice ent. [facility]In the event this information is protected by the Federal Confidentiality of Alcohol and Drug Abuse Patient Records regulations: This inform ation has been disclosed to you from records protected by Federal confidentiality rul es ( The Federal rules restrict any use of the in formation to criminally investigate or prosecute any alcohol or drug abuse candice ent. [facility]In the event this information is protected by the Federal Confidentiality of Alcohol and Drug Abuse Patient Records regulations: This inform ation has been disclosed to you from records protected by Federal confidentiality rul es ( The Federal rules restrict any use of the in formation to criminally investigate or prosecute any alcohol or drug abuse candice ent. [facility] Reason for Visit (unrecognized section a nd [...] Diagnoses Dyspnea on exertion [facility] [place] Procedures SPIROMETRY - BASELINE AND POST DILATOR BRNCDILAT RSPSE SPMTRY PRE&POST-BRNCDILAT ADMN MELISSA Guillen.ENERGY CONSERVATION SPECIALIST [address] [place] [address] Referral ID Status Reason Start Date Expiration Date Visits V isits Requested Authorized [id number] Closed Auto-Generate 03/13/2022 04/12/2023 1 1 d [...] Medicine Procedures CONSULT TO PULM/CRITICAL CARE OFFICE/OUTPATIENT [facility] 60-74 MINUTES MELISSA Guillen.ENERGY CONSERVATION SPECIALIST [address] [place] [address] Referral ID Status Reason Start Date Expiration Date Visits V isits Requested Authorized [id number] Closed PCP Requested 03/13/2022 03/13/2023 1 1 Referral Reason Comments Patient Update Reason Comments F/U 3 Month Reason Comments Mouth/Lip Problem Reason Comments Pain Mouth pain x 1 week Reason Comments Patient Question Reason Comments Established Patient Specialty Diagnoses / Procedures Referred By Contact Refer red To Contact Vascular Surgery Diagnoses PAD (peripheral artery disease) ([facility]) Ulises Hermosillo MD [address] Procedures CONSULT TO VASCULAR SURGERY OFFICE/OUTPATIENT [facility] 60-74 MINUTES [facility] [place] [address] [address] [place] [address] Referral ID Status Reason Start Date Expiration Date Visits V isits Requested Authorized [id number] Closed PCP Requested 05/11/2022 05/11/2023 1 1 Referral Reason Comments New Patient Hemoptysis Reason Comments Behavioral Health Social Work Care Teams (unrecognized section and con tent) Mattress Specialist Relationship Specialty Start Date End Date Ulises Hermosillo MD PCP - General Internal Medicine 01/25/16 [address] [place] [address] Mattress Specialist Relationship Specialty Start Date End Date Ulises Hermosillo MD PCP - General Internal Medicine 01/25/[address] [place] [id number] Mattress Specialist Relationship Specialty Start Date End Date Ulises Hermosillo MD PCP - General Internal Medicine 01/25/[address] [place] [address] Mattress Specialist Relationship Specialty Start Date End Date Ulises Hermosillo MD PCP - General Internal Medicine 01/25/16 [address] [place] [address] Mattress Specialist Relationship Specialty Start Date End Date Ulises Hermosillo MD PCP - General Internal Medicine 01/25/16 [address] [place] [address] Mattress Specialist Relationship Specialty Start Date End Date Ulises Hermosillo MD PCP - General Internal Medicine 01/25/[address] [place] [address] Mattress Specialist Relationship Specialty Start Date End Date Ulises Hermosillo MD PCP - General Internal Medicine 01/25/[address] [place] [address] Mattress Specialist Relationship Specialty Start Date End Date Ulises Hermosillo MD PCP - General Internal Medicine 01/25/16 [address] [facility] [place] [address] Mattress Specialist Relationship Specialty Start Date End Date Ulises Hermosillo MD PCP - General Internal Medicine 01/25/16 [address] [facility] [place] [address] Mattress Specialist Relationship Specialty Start Date End Date Ulises Hermosillo MD PCP - General Internal Medicine 01/25/16 [address] [facility] [place] [address] Mattress Specialist Relationship Specialty Start Date End Date Ulises Hermosillo MD PCP - General Internal Medicine 01/25/16 [address] [facility] [place] [address] Mattress Specialist Relationship Specialty Start Date End Date Ulises Hermosillo MD PCP - General Internal Medicine 01/25/16 [address] [facility] [place] [address] Mattress Specialist Relationship Specialty Start Date End Date Ulises Hermosillo MD PCP - General Internal Medicine 01/25/16 [address] [facility] [place] [address] Mattress Specialist Relationship Specialty Start Date End Date Ulises Hermosillo MD PCP - General Internal Medicine 01/25/16 [address] [facility] [place] [address] Mattress Specialist Relationship Specialty Start Date End Date Ulises Hermosillo MD PCP - General Internal Medicine 01/25/16 [address] [facility] [place] [address] Mattress Specialist Relationship Specialty Start Date End Date Ulises Hermosillo MD PCP - General Internal Medicine 01/25/16 [address] [facility] [place] [address] Mattress Specialist Relationship Specialty Start Date End Date Ulises Hermosillo MD PCP - General Internal Medicine 01/25/16 [address] [place] [address] Mattress Specialist Relationship Specialty Start Date End Date Ulises Hermosillo MD PCP - General Internal Medicine 01/25/16 [address] [place] [address] Mattress Specialist Relationship Specialty Start Date End Date Ulises Hermosillo MD PCP - General Internal Medicine 01/25/16 [address] [place] [address] Mattress Specialist Relationship Specialty Start Date End Date Ulises Hermosillo MD PCP - General Internal Medicine 01/25/16 [address] [place] [address] Mattress Specialist Relationship Specialty Start Date End Date Ulises Hermosillo MD PCP - General Internal Medicine 01/25/16 [address] [place] [address] Mattress Specialist Relationship Specialty Start Date End Date Ulises Hermosillo MD PCP - General Internal Medicine 01/25/16 [address] [place] [address] Care Team (unrecognized section and cont ent) Personnel Name: ULISES HERMOSILLO MD Address: Address: [address] [place] [address]- Personnel Name: ULISES HERMOSILLO MD Address: Address: [address] [place] [address]- Care Team Personnel Name: ULISES HERMOSILLO MD Member Role: Primary Care Physician Address: Address: [address] [place] [address]- Name: Yolanda Decker RN Position: AO RN Member Role: RN Name: ZINA GLOVER DO Position: ED Physician Address: Address: [address] [facility] [place] [address]- [place] Name: BRIAN TRINIDAD DO Position: Resident Member Role: ED Physician Address: Address: [address] [facility] [place] [address]- [place] Care Team Related Persons Name: MELY SERNA Address: Home [address] [place] [address] [place] Name: MELY SERNA Address: Home [address] [place] [address] [place] Name: MELY SERNA Address: Home [address] [place] [address] [place] Name: MELY SERNA Address: Home [address] [place] [address] [place] Name: MELY SERNA Address: Home [address] [place] [address] [place] Name: MELY SERNA Address: Home [address] [place] [address] [place] Name: MELY SERNA Address: Home [address] [place] [address] [place] Care Team Personnel Name: ULISES HERMOSILLO MD Member Role: Primary Care Physician Address: Address: [address] [place] [address]- [place] Name: MD JOSE ROBERTO COMBS MD Position: ED Physician Member Role: ED Physician Address: Address: [facility] [address] [place] [address]- [place] Care Team Related Persons Name: MELY SERNA Address: Home [address] [place] [address] [place] Name: MELY SERNA Address: Home [address] [place] [address] [place] Name: MELY SERNA Address: Home [address] [place] [address] [place] Name: MELY SERNA Address: Home [address] [place] [address] [place] Name: MELY SERNA Address: Home [address] [place] [address] [place] Name: MELY SERNA Address: Home [address] [place] [address] [place] Name: MELY SERNA Address: Home [address] [place] [address] [place] FOR RECORDS PERTAINING TO PATIENTS WHO [...] BE BASED ON THE PRIMARY CLINICAL RECORDS. [employer] provides no warranty or guarantee of the accuracy or completeness of information in this document.
[2023-01-02 22:13] LABS: Phosphorus 3.6 mg/dL (2.5-4.9)
[2023-01-02 22:43] LABS: Procalcitonin < 0.01 ng/mL (0.00-0.09)
[2023-01-02 23:17] LABS: Troponin-I HS 16 pg/mL (3.0-54.0)
[2023-01-02] MEDS: Ipratropium/Albuterol Sulfate 3 ML AMPUL.NEB INHALATION (23:45)
[2023-01-02] MEDS: traZODone 100 MG Tablet PO (23:58)
[2023-01-02] MEDS: 0.9% Normal Saline 1,000 ML 100 ML IV (23:58)
[2023-01-02] MEDS: Phenobarbital 32.4 MG Tablet 64.7999999999999972 MG PO (23:59)
[2023-01-03] VITALS (14 sets, daily range): BP systolic 122–151; BP diastolic 70–96; PULSE 79–98; RESP 16–24; TEMP 36.6–36.8; O2SAT 90–99; BMI 21.4
[2023-01-03 01:27] LABS: Troponin-I HS 17 pg/mL (3.0-54.0)
[2023-01-03] MEDS: Phenobarbital 32.4 MG Tablet 64.7999999999999972 MG PO ×5 (03:36→18:46)
[2023-01-03 06:31] LABS: Absolute Lymphocyte Count 0.36 X10^3/uL (0.83-4.51); Absolute Neutrophil Count 6.2 X10^3/uL (2.0-7.7); Basophil# 0.04 X10^3/uL; Basophil% 0.6 % (0-1); Hematocrit 42.1 % (37-47); Hemoglobin 13.4 g/dL (12.0-15.0); Lymphocyte # 0.36 X10^3/ul (0.83-4.51); Lymphocyte % 5.4 % (19-41); Mean Corp Hgb Conc 31.8 g/dL (32-36); Mean Corpuscular Hgb 31.5 pg (27.0-32.0); Mean Corpuscular Volume 99.1 fL (81-99); Mean Platelet Vol. 9.4 fl (6.2-12.0); Monocyte# 0.06 X10^3/uL; Monocyte% 0.9 % (0-10); NRBC Flagged by Analyzer 0 % (0-5); Neutrophil % 92.4 % (47-70); POSITIVE DIFFERENTIAL YES; Platelet Count 416 K/mm3 (150-450); RBC Distribution Width CV 15.7 % (11.6-14.6); RBC Distribution Width SD 57.1 fl (35.1-43.9); Red Blood Count 4.25 M/mm3 (4.2-5.4); White Blood Count 6.7 K/mm3 (4.4-11.0)
[2023-01-03 06:33] LABS: Differential Indicated SCAN CRITERIA MET
[2023-01-03] MEDS: 0.9% Saline Lock 10 ML Syringe IV ×3 (06:58→20:42)
[2023-01-03 07:09] LABS: ALB/GLOB Ratio 0.9 RATIO (0.9-2.4); AST(SGOT) 14 U/L (15-37); Alanine Aminotransfer ALT/SGPT 19 U/L (13-56); Alkaline Phosphatase 59 U/L (45-117); Anion Gap 4 (5-15); BUN 10 mg/dL (7-18); BUN/Creat Ratio 12.5 RATIO (10-20); Calcium,Total 8.1 mg/dL (8.5-10.1); Chloride 112 mmol/L (98-107); Cholesterol 225 mg/dL (200); EST Glomerular Filtration Rate 76 mL/min (>60); Est Glom Filt Rate - Afr Amer 92 mL/min (>60); Globulin 3.5 g/dL (2.2-4.2); Glucose 236 mg/dL (74-106); High Density Lipoprotein 98 mg/dL; Potassium 4.3 mmol/L (3.5-5.1); Protein, Total 6.5 g/dL (6.4-8.2); Sodium Level 141 mmol/L (136-145); Triglycerides 63 mg/dL; Very Low Density Lipoprotein 13 mg/dL (5-40)
[2023-01-03] MEDS: Ipratropium/Albuterol Sulfate 3 ML AMPUL.NEB INHALATION ×4 (07:30→19:03)
--- NOTE | 2023-01-03 08:29 | PCM.PN.HOSP ---
Reason for Visit Reason for Visit: Diagnoses Chronic obstructive pulmonary disease with (acute) exacerbation (01/02/23) Chest pain, unspecified (01/02/23) Subjective Subjective Breathing okay. Has chest pain when she takes in deep respirations. Complains of some paresthesias on her second through fourth toes. Concerning for her because she had a bypass on her right leg and had some similar paresthesias with. Objective Data Objective Data Vital Signs: Vital Signs Temp Pulse Resp BP Pulse Ox O2 Del Method O2 Flow Rate 36.7 C 83 18 122/96 H 95 Nasal Cannula 2 01/03/23 06:53 01/03/23 07:32 01/03/23 07:32 01/03/23 06:53 01/03/23 07:32 01/03/23 07:32 01/03/23 07:32 Oxygen Flow Rate (L/min) 2 Oxygen Delivery Method Nasal Cannula Weight: 58.2 kg Body Mass Index (BMI) 21.4 Lab / Micro Data Result Diagrams: 01/03/23 06:07 01/03/23 06:07 Labs: Laboratory Results - last 24 hr 01/02/23 18:30: Urine Opiates Screen NEGATIVE, Urine Methadone Screen NEGATIVE, Ur Barbiturates Screen NEGATIVE, Ur Phencyclidine Scrn NEGATIVE, Ur Amphetamines Screen NEGATIVE, MDMA (Ecstasy) Screen NEGATIVE, U Benzodiazepines Scrn NEGATIVE, Urine Cocaine Screen NEGATIVE, U Cannabinoids Screen NEGATIVE, Ur Drug Screen Comment 01/02/23 18:30: Urine Color Yellow, Urine Clarity Clear, Urine pH 6.0, Ur Specific [place] 1.005, Urine Protein Negative, Urine Glucose (UA) Normal, Urine Ketones Negative, Urine Occult Blood Negative, Urine Nitrite Negative, Urine Bilirubin Negative, Urine Urobilinogen Normal, Ur Leukocyte Esterase Negative, Urine RBC 0 SEEN, Urine WBC 0 SEEN, Ur Squamous Epith Cells 0-5 SEEN, Urine Bacteria 0 SEEN, Urine Mucus 0 SEEN 01/02/23 19:17: WBC 7.2, RBC 4.42, Hgb 14.0, Hct 43.9, MCV 99.3 H, MCH 31.7, MCHC 31.9 L, RDW Std Deviation 56.6 H, RDW Coeff of Ni 15.6 H, Plt Count 478 H, MPV 9.8, Immature Gran % (Auto) 0.400, Neut % (Auto) 50.1, Lymph % (Auto) 37.2, [place] % (Auto) 9.6, Eos % (Auto) 1.4, Baso % (Auto) 1.3 H, Absolute Neuts (auto) 3.6, Absolute Lymphs (auto) 2.67, Nucleated RBC % 0 01/02/23 19:17: Sodium 143, Potassium 3.6, Chloride 109 H, Carbon Dioxide 27.0, Anion Gap 7, BUN 11, Creatinine 0.80, Estim Creat Clear Calc 61.40, Est GFR (MDRD) Af Amer 91, Est GFR (MDRD) Non-Af 76, BUN/Creatinine Ratio 13.7, Glucose 76, Calcium 8.5, Total Bilirubin 0.10 L, AST 17, ALT 24, Alkaline Phosphatase 63, Troponin I High Sens 17, Total Protein 7.3, Albumin 3.4, Globulin 3.9, Albumin/Globulin Ratio 0.9, Lipase 235 01/02/23 19:17: Ethyl Alcohol 112.0 01/02/23 21:31: Phosphorus 3.6, Magnesium 2.0 01/02/23 21:31: Procalcitonin < 0.01 01/02/23 21:31: Troponin I High Sens 16 01/03/23 00:59: Troponin I High Sens 17 01/03/23 06:07: WBC 6.7, RBC 4.25, Hgb 13.4, Hct 42.1, MCV 99.1 H, MCH 31.5, MCHC 31.8 L, RDW Std Deviation 57.1 H, RDW Coeff of Ni 15.7 H, Plt Count 416, MPV 9.4, Immature Gran % (Auto) 0.700, Neut % (Auto) 92.4 H, Lymph % (Auto) 5.4 L, [place] % (Auto) 0.9, Eos % (Auto) 0.0, Baso % (Auto) 0.6, Absolute Neuts (auto) 6.2, Absolute Lymphs (auto) 0.36 L, Nucleated RBC % 0 01/03/23 06:07: Sodium 141, Potassium 4.3, Chloride 112 H, Carbon Dioxide 25.0, Anion Gap 4 L, BUN 10, Creatinine 0.80, Estim Creat Clear Calc 61.40, Est GFR (MDRD) Af Amer 92, Est GFR (MDRD) Non-Af 76, BUN/Creatinine Ratio 12.5, Glucose 236 H, Calcium 8.1 L, Total Bilirubin 0.20, AST 14 L, ALT 19, Alkaline Phosphatase 59, Total Protein 6.5, Albumin 3.0 L, Globulin 3.5, Albumin/Globulin Ratio 0.9, Triglycerides 63, Cholesterol 225 H, LDL Cholesterol 114, VLDL Cholesterol 13, HDL Cholesterol 98 Micro: Microbiology 01/02/23 23:40 Mucosa - Nasopharyngeal Respiratory Panel (PCR) - Final Radiography Diagnostic Testing: Radiology Impression Chest X-Ray 01/02/23 19:00 IMPRESSION: COPD. No acute cardiopulmonary pathology Electronically Signed: Dylan Sethi MD at 21:10 EST , Physical Exam Const alert and no apparent distress HEENT head/scalp atraumatic and moist oral mucous membranes Resp normal respiratory effort Resp Narrative: Diminished but clear. Cardio regular rate, regular rhythm, S1 normal heart sound and S2 normal heart sound GI normal to inspection, nondistended, normoactive bowel sounds and soft to palpation Assessment & Plan Assessment/Plan (1) COPD exacerbation: PLAN: Acute Hypoxia secondary to Acute Mild on Chronic COPD exacerbation: Will admit to PCU given #2 complaints to be cautious, maintain on oxygen with wean as tolerated to room air, continue ATC duonebs, PRN albuterol, IV methylprednisolone, HOB, IS parameters, procalcitonin requested, full respiratory viral panel requested, sputum Cx if able to provide. (2) Chest pain: PLAN: Chest Pain, suspected more so related to acute COPD exacerbation as noted #1: EKG in ED sinus rhythm with no evidence of ischemia, CXR w/ chronic COPD type changes with no acute cardiopulmonary findings otherwise, initial trop 17. Will place on a monitored bed to assure no acute myocardial infarction with serial cardiac enzymes and EKGs. Again lower suspicion for cardiac etiology but to be cautious we will trend enzymes, obtain FLP in a.m. as well as magnesium level. ASA, NG. If any concerning EKG changes or elevated enzymes arise may consider future stress testing. Troponins negative x3 Atypical. No additional work-up at this time. (3) Desire for detoxification: PLAN: Acute EtOH Withdrawal: Given interest in sobriety, will initiate and continue on protocol with taper course of Phenobarbital, scheduled gabapentin for seizure prophylaxis, as needed Bentyl, Vistaril, IV fluids, IV antiemetics, Tylenol as needed for pain. Will consult Case management for assistance for transition to next level of rehabilitation care. Mag, phos pending. Maintain on CIWA protocol concurrently. (4) Peripheral arterial disease: PLAN: Patient had some type of bypass on her right leg. Currently complaining of right toe numbness. Check ABIs PLAN: Plan Chronic conditions: Anxiety and depression: We will continue patient home trazodone as well as paroxetine home regimen, would benefit greatly from counseling especially given ongoing alcohol abuse and recent admissions of significant events in her life leading to increased alcohol consumption. Hypertension: Continue home regimen including lisinopril, amlodipine, metoprolol, PRN hydralazine. Hyperlipidemia: Cholesterol 225. LDL 114. We will start atorvastatin 20. Tobacco Abuse: Encouraged cessation, inpatient consultation per RT, NR if desired. GERD: We will maintain on PPI. DVT prophylaxis: SCDsClaudianox. Charges/Coding Visit Charges Inpatient E&M: 47483 Subs Hosp L2
[2023-01-03] MEDS: Lisinopril 40 MG Tablet PO (08:50)
[2023-01-03] MEDS: Carvedilol 6.25 MG Tablet PO ×2 (08:50→20:38)
[2023-01-03] MEDS: Aspirin E.C. 81 MG Tablet PO (08:50)
[2023-01-03] MEDS: Venlafaxine XR 75 MG Capsule PO (08:50)
[2023-01-03] MEDS: Folic Acid 1 MG Tablet PO (08:50)
[2023-01-03] MEDS: Thiamine Hydrochloride 100 MG Tablet PO (08:50)
[2023-01-03] MEDS: Enoxaparin 40 MG/0.4 ML Syringe SC (08:51)
[2023-01-03] MEDS: Venlafaxine XR 150 MG Capsule PO (08:51)
[2023-01-03] MEDS: Pantoprazole Sodium 40 MG Tablet PO (08:51)
[2023-01-03] MEDS: Isosorbide Mononitrate 30 MG Tablet PO (08:51)
[2023-01-03] MEDS: amLODIPine 5 MG Tablet PO (08:51)
[2023-01-03 09:06] LABS: Differential Comment SCANNED
[2023-01-03] MEDS: Ensure Plus High Protein 120 ML LIQUID PO ×2 (14:49→20:47)
--- NOTE | 2023-01-03 15:30 | ART_ITS ---
Reason For Study: PARESTHESIA Procedure A bilateral lower extremity continuous wave Doppler with analog waveform analysis and ankle brachial indexes. Left Segmental Pressures Left brachial= 139mmHg. Left posterior tibial artery = 89mmHg. Left dorsalis pedis artery = 87mmHg. The left dorsalis pedis waveforms are monophasic. The left posterior tibial artery waveforms are monophasic. Right Segmental Pressures Right brachial= 151mmHg. Right posterior tibial artery = 87mmHg. Right dorsalis pedis artery = 77mmHg. The right dorsalis pedis waveforms are monophasic. The right posterior tibial artery waveforms are monophasic. Indices The right ankle brachial index by the dorsalis pedis is .51. The right ankle brachial index by the posterior tibial artery is .58. The left ankle brachial index by the dorsalis pedis is .58. The left ankle brachial index by the posterior tibial artery is .59. VL/Ankle Brachial Index Interpretation Summary Right CRISTIAN 0.58, moderate arterial insufficiency. Doppler/PVR waveforms of the r ight ankle moderately diminished at rest. Left CRISTIAN 0.59, moderate arterial insufficiency. Doppler/PVR waveforms of the le ft ankle moderately diminished at rest. Ordering Physician: Joel Sauer Referring Physician: MD Ben Hermosillo Performed By: Pedro Brandt RVT
[2023-01-03 16:58] LABS: Hemoglobin A1c 5.5 % (3.8-5.6)
[2023-01-03 18:01] LABS: Bedside Glucose 147 mg/dL (74-106)
[2023-01-03] MEDS: traZODone 100 MG Tablet 200 MG PO (20:38)
[2023-01-03] MEDS: Atorvastatin Calcium 20 MG Tablet PO (20:39)
[2023-01-04] VITALS (15 sets, daily range): BP systolic 140–172; BP diastolic 65–94; PULSE 50–96; RESP 14–22; TEMP 36.4–36.7; O2SAT 89–99; BMI 21.9
[2023-01-04] MEDS: Phenobarbital 32.4 MG Tablet 64.7999999999999972 MG PO ×5 (00:16→15:20)
[2023-01-04] MEDS: Albuterol 2.5 MG/3 ML VIAL.NEB. INHALATION (04:59)
[2023-01-04] MEDS: 0.9% Saline Lock 10 ML Syringe IV ×2 (06:20→15:10)
[2023-01-04] MEDS: Ipratropium/Albuterol Sulfate 3 ML AMPUL.NEB INHALATION ×4 (07:15→20:43)
[2023-01-04] MEDS: Lisinopril 40 MG Tablet PO (08:11)
[2023-01-04] MEDS: Venlafaxine XR 75 MG Capsule PO (08:11)
[2023-01-04] MEDS: Aspirin E.C. 81 MG Tablet PO (08:11)
[2023-01-04] MEDS: Folic Acid 1 MG Tablet PO (08:11)
[2023-01-04] MEDS: Thiamine Hydrochloride 100 MG Tablet PO (08:12)
[2023-01-04] MEDS: Venlafaxine XR 150 MG Capsule PO (08:12)
--- NOTE | 2023-01-04 08:12 | PN.HOSP_ITS ---
Reason for Visit Reason for Visit: Diagnoses Peripheral vascular disease, unspecified (01/02/23) Chronic obstructive pulmonary disease with (acute) exacerbation (01/02/23) Chest pain, unspecified (01/02/23) Subjective Subjective Does still with some paresthesias but feeling somewhat better. Still shortness of breath and just feeling unwell overall Objective Data Objective Data Vital Signs: Vital Signs Temp Pulse Resp BP Pulse Ox O2 Del Method O2 Flow Rate 36.6 C 88 16 140/76 H 98 Nasal Cannula 2 01/04/23 05:50 01/04/23 05:50 01/04/23 05:50 01/04/23 05:50 01/04/23 05:50 01/04/23 05:50 01/04/23 05:50 Oxygen Flow Rate (L/min) 2 Oxygen Delivery Method Nasal Cannula Weight: 59.9 kg Body Mass Index (BMI) 21.9 Intake & Output: Intake and Output for Last 24 Hours 01/02/23 01/03/23 01/04/23 23:59 23:59 23:59 Intake Total 2059 Balance 2059 Medical Nutrition Assessment Dietitian: Malnutrition Criteria Met Start: 01/03/23 10:58 Freq: Status: Active Protocol: Document 01/03/23 10:58 AG (Rec: 01/03/23 10:58 AG [id number]) Nutrition Malnutrition Evidence of Malnutrition Exists Yes Malnutrition (moderate): Acute Illness/Injury Evidenced By Suboptimal Energy Intake ( Moderate),Weight Loss ( Moderate) Clinical Problem Acute Disease or Injury Related Malnutrition Etiology moderate, acute malnutrition related to inadequate oral intake d/t excessive alcohol consumption Signs/Symptoms as evidenced by unintentional 6.7#/5% wt loss x 1 month; estimated PO intake meeting < 75% of estimated energy needs x 1 month Status Active Problem Recommendation Dietitian Recommendations/Changes will adjust diet to regular given evidence of acute malnutrition; continue ensure plus high protein 120mL 4x/day w/ medpass for additional protein/calories if consumed Lab / Micro Data Result Diagrams: 01/03/23 06:07 01/03/23 06:07 Labs: Laboratory Results - last 24 hr 01/03/23 06:07: Differential Comment SCANNED 01/03/23 06:07: Hemoglobin A1c 5.5 01/03/23 17:16: POC Glucose 147 H Micro: Microbiology 01/02/23 23:50 Sputum, Expectorated/Coughed Gram Stain - Final 01/02/23 23:40 Mucosa - Nasopharyngeal Respiratory Panel (PCR) - Final Physical Exam Const alert and no apparent distress Resp normal respiratory effort, no retractions, no use of accessory muscles and clear to auscultation bilaterally Cardio regular rate, regular rhythm, S1 normal heart sound and S2 normal heart sound GI normal to inspection, nondistended, normoactive bowel sounds, soft to palpation, non-tender and non-distended Extremity normal to inspection and full ROM Neuro oriented x3 Psych affect normal Assessment & Plan Assessment/Plan (1) COPD exacerbation: PLAN: Acute Hypoxia secondary to Acute Mild on Chronic COPD exacerbation: continue ATC duonebs, PRN albuterol, IV methylprednisolone, HOB, IS parameters, procalcitonin requested, Respiratory panel negative Sputum culture pending (2) Chest pain: PLAN: Chest Pain, suspected more so related to acute COPD exacerbation as noted #1: EKG in ED sinus rhythm with no evidence of ischemia, CXR w/ chronic COPD type changes with no acute cardiopulmonary findings otherwise, initial trop 17. Will place on a monitored bed to assure no acute myocardial infarction with serial cardiac enzymes and EKGs. Again lower suspicion for cardiac etiology but to be cautious we will trend enzymes, obtain FLP in a.m. as well as magnesium level. ASA, NG. If any concerning EKG changes or elevated enzymes arise may consider future stress testing. Troponins negative x3 Atypical. No additional work-up at this time. (3) Desire for detoxification: PLAN: Acute EtOH Withdrawal: Given interest in sobriety, will initiate and continue on protocol with taper course of Phenobarbital, scheduled gabapentin for seizure prophylaxis, as needed Bentyl, Vistaril, IV fluids, IV antiemetics, Tylenol as needed for pain. Will consult Case management for assistance for transition to next level of rehabilitation care. Mag, phos pending. Maintain on CIWA protocol concurrently. (4) Peripheral arterial disease: PLAN: Patient had some type of bypass on her right leg. Currently complaining of right toe numbness. Check ABIs. Final read pending but appears to be 0.51 on the right and 0.58 on the left. Patient has had a bypass before. No evidence of any cyanosis or certainly no necrosis at this time. Patient does have a vascular surgeon whom she will be following up with in the future. PLAN: Plan Chronic conditions: * Anxiety and depression: We will continue patient home trazodone as well as paroxetine home regimen, would benefit greatly from counseling especially given ongoing alcohol abuse and recent admissions of significant events in her life leading to increased alcohol consumption. * Hypertension: Continue home regimen including lisinopril, amlodipine, metoprolol, PRN hydralazine. * Hyperlipidemia: Cholesterol 225. LDL 114. We will start atorvastatin 20. * Tobacco Abuse: Encouraged cessation, inpatient consultation per RT, NR if desired. * GERD: We will maintain on PPI. DVT prophylaxis: SCDs, Lovenox. Charges/Coding Visit Charges Inpatient E&M: 35336 Subs Hosp L2
[2023-01-04] MEDS: Enoxaparin 40 MG/0.4 ML Syringe SC (08:13)
[2023-01-04] MEDS: amLODIPine 5 MG Tablet PO (08:13)
[2023-01-04] MEDS: Pantoprazole Sodium 40 MG Tablet PO (08:13)
[2023-01-04] MEDS: Isosorbide Mononitrate 30 MG Tablet PO (08:13)
[2023-01-04] MEDS: Carvedilol 6.25 MG Tablet PO ×2 (08:13→22:28)
[2023-01-04] MEDS: Ensure Plus High Protein 120 ML LIQUID PO ×2 (08:20→22:43)
[2023-01-04 08:25] LABS: Bedside Glucose 127 mg/dL (74-106)
--- NOTE | 2023-01-04 11:39 | NURSING ---
Addendum entered by Haley Alvarez 01/04/23 11:43: [facility] called back to inform us they will take patient regardless of insurance issue. They will come in this afternoon to evaluate patient. Original Note: [facility] from [facility] called to report they do not accept patient's insurance.
--- NOTE | 2023-01-04 11:49 | ADDICTION ---
This copywriter met with PT to conduct ASAM, MSE, AUDIT, DUDIT assessments and to plan for d/c. PT A+Ox4 and participated actively. All assessments completed and placed in PT's chart. PT plans to f/u with [facility] for in-patient treatment services in [place], [place]. PT did not indicate a need for transportation post d/c from [facility].
--- NOTE | 2023-01-04 11:51 | CASEMGMT ---
Per extension service specialist in charge Miah, [facility] called in and said they will accept patient. SW called Vishnu, injection specialist and let her know. 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 The facility is okay with patient needing prn O2. Nursing is going to walk patient and test her O2 needs. Yolanda Skelton [employer] LEONARDO
[2023-01-04 12:10] LABS: Bedside Glucose 145 mg/dL (74-106)
[2023-01-04 12:10] LABS: Bedside Glucose 132 mg/dL (74-106)
[2023-01-04] MEDS: hydrOXYzine PAM 25 MG Capsule 50 MG PO (15:20)
[2023-01-04 16:01] LABS: Bedside Glucose 108 mg/dL (74-106)
[2023-01-04] MEDS: Gabapentin 300 MG Capsule PO (18:46)
[2023-01-04] MEDS: Atorvastatin Calcium 20 MG Tablet PO (22:27)
[2023-01-04] MEDS: traZODone 100 MG Tablet 200 MG PO (22:28)
[2023-01-04 23:26] LABS: Bedside Glucose 138 mg/dL (74-106)
[2023-01-05] VITALS (11 sets, daily range): BP systolic 133–143; BP diastolic 64–93; PULSE 73–99; RESP 16–19; TEMP 36.6–37.6; O2SAT 78–99; BMI 21.8
[2023-01-05] MEDS: Albuterol 2.5 MG/3 ML VIAL.NEB. INHALATION (04:25)
[2023-01-05] MEDS: Insulin Lispro 100 UNIT/ML INSULN.PEN SC (06:57)
[2023-01-05 07:20] LABS: Bedside Glucose 180 mg/dL (74-106)
[2023-01-05] MEDS: Ipratropium/Albuterol Sulfate 3 ML AMPUL.NEB INHALATION ×3 (07:33→19:04)
--- NOTE | 2023-01-05 08:25 | PN.HOSP_ITS ---
Reason for Visit Reason for Visit: Diagnoses Peripheral vascular disease, unspecified (01/02/23) Chronic obstructive pulmonary disease with (acute) exacerbation (01/02/23) Chest pain, unspecified (01/02/23) Subjective Subjective Breathing okay. Objective Data Objective Data Vital Signs: Vital Signs Temp Pulse Resp BP Pulse Ox O2 Del Method O2 Flow Rate 36.6 C 76 18 139/93 H 95 Nasal Cannula 2 01/05/23 04:20 01/05/23 07:35 01/05/23 07:35 01/05/23 04:20 01/05/23 08:06 01/05/23 08:06 01/05/23 08:06 Oxygen Flow Rate (L/min) 2 Oxygen Delivery Method Nasal Cannula Weight: 59.5 kg Body Mass Index (BMI) 21.8 Intake & Output: Intake and Output for Last 24 Hours 01/03/23 01/04/23 01/05/23 23:59 23:59 23:59 Intake Total 2059 1020 / 1320 600 / 600 Balance 2059 1020 / 1320 600 / 600 Medical Nutrition Assessment Dietitian: Malnutrition Criteria Met Start: 01/03/23 10:58 Freq: Status: Active Protocol: Document 01/03/23 10:58 AG (Rec: 01/03/23 10:58 AG [id number]) Nutrition Malnutrition Evidence of Malnutrition Exists Yes Malnutrition (moderate): Acute Illness/Injury Evidenced By Suboptimal Energy Intake ( Moderate),Weight Loss ( Moderate) Clinical Problem Acute Disease or Injury Related Malnutrition Etiology moderate, acute malnutrition related to inadequate oral intake d/t excessive alcohol consumption Signs/Symptoms as evidenced by unintentional 6.7#/5% wt loss x 1 month; estimated PO intake meeting < 75% of estimated energy needs x 1 month Status Active Problem Recommendation Dietitian Recommendations/Changes will adjust diet to regular given evidence of acute malnutrition; continue ensure plus high protein 120mL 4x/day w/ medpass for additional protein/calories if consumed Lab / Micro Data Result Diagrams: 01/03/23 06:07 01/03/23 06:07 Labs: Laboratory Results - last 24 hr 01/04/23 06:25: POC Glucose 127 H 01/04/23 08:07: POC Glucose 132 H 01/04/23 11:36: POC Glucose 145 H 01/04/23 15:39: POC Glucose 108 H 01/04/23 22:32: POC Glucose 138 H 01/05/23 06:50: POC Glucose 180 H Micro: Microbiology 01/02/23 23:50 Sputum, Expectorated/Coughed Gram Stain - Final 01/02/23 23:50 Sputum, Expectorated/Coughed Respiratory Culture - Preliminary Streptococcus pneumoniae 01/02/23 23:40 Mucosa - Nasopharyngeal Respiratory Panel (PCR) - Final Physical Exam Const Constitutional Narrative: Decreased plethora of the face and chest. No rash elsewhere. Resp normal respiratory effort, no retractions, no use of accessory muscles and clear to auscultation bilaterally Cardio regular rate, regular rhythm, S1 normal heart sound and S2 normal heart sound GI normal to inspection, nondistended, normoactive bowel sounds, soft to palpation, non-tender and non-distended Assessment & Plan Assessment/Plan (1) COPD exacerbation: PLAN: Acute Hypoxia secondary to Acute Mild on Chronic COPD exacerbation: continue ATC duonebs, PRN albuterol, IV methylprednisolone, HOB, IS parameters, procalcitonin requested, Respiratory panel negative Sputum culture pending (2) Chest pain: PLAN: Chest Pain, suspected more so related to acute COPD exacerbation as noted #1: EKG in ED sinus rhythm with no evidence of ischemia, CXR w/ chronic COPD type changes with no acute cardiopulmonary findings otherwise, initial trop 17. Will place on a monitored bed to assure no acute myocardial infarction with serial cardiac enzymes and EKGs. Again lower suspicion for cardiac etiology but to be cautious we will trend enzymes, obtain FLP in a.m. as well as magnesium level. ASA, NG. If any concerning EKG changes or elevated enzymes arise may consider future stress testing. Troponins negative x3 Atypical. No additional work-up at this time. (3) Desire for detoxification: PLAN: Acute EtOH Withdrawal: Given interest in sobriety, will initiate and continue on protocol with taper course of Phenobarbital, scheduled gabapentin for seizure prophylaxis, as needed Bentyl, Vistaril, IV fluids, IV antiemetics, Tylenol as needed for pain. Will consult Case management for assistance for transition to next level of rehabilitation care. Mag, phos pending. Maintain on CIWA protocol concurrently. (4) Peripheral arterial disease: PLAN: Patient had some type of bypass on her right leg. Currently complaining of right toe numbness. Check ABIs. Final read pending but appears to be 0.51 on the right and 0.58 on the left. Patient has had a bypass before. No evidence of any cyanosis or certainly no necrosis at this time. Patient does have a vascular surgeon whom she will be following up with in the future. (5) Rash: PLAN: Patient had erythema on her face as well as her upper chest but not noted elsewhere. Unclear if that was the actual drug rash sure what that actually was. Phenobarbital was discontinued. 01/05: Improved today. It cannot determine if this is due to phenobarbital or not as it had an atypical distribution with involving the upper chest and face. Patient denies any sun exposure. PLAN: Plan Chronic conditions: * Anxiety and depression: We will continue patient home trazodone as well as paroxetine home regimen, would benefit greatly from counseling especially given ongoing alcohol abuse and recent admissions of significant events in her life leading to increased alcohol consumption. * Hypertension: Continue home regimen including lisinopril, amlodipine, metoprolol, PRN hydralazine. * Hyperlipidemia: Cholesterol 225. LDL 114. We will start atorvastatin 20. * Tobacco Abuse: Encouraged cessation, inpatient consultation per RT, NR if desired. * GERD: We will maintain on PPI. DVT prophylaxis: SCDs, Lovenox. Disposition: To inpatient rehab unit on the . Charges/Coding Visit Charges Inpatient E&M: 49463 Subs Hosp L2
[2023-01-05] MEDS: amLODIPine 5 MG Tablet PO (09:20)
[2023-01-05] MEDS: Pantoprazole Sodium 40 MG Tablet PO (09:20)
[2023-01-05] MEDS: Aspirin E.C. 81 MG Tablet PO (09:20)
[2023-01-05] MEDS: Carvedilol 6.25 MG Tablet PO ×2 (09:20→21:30)
[2023-01-05] MEDS: Venlafaxine XR 75 MG Capsule PO (09:20)
[2023-01-05] MEDS: Isosorbide Mononitrate 30 MG Tablet PO (09:20)
[2023-01-05] MEDS: Folic Acid 1 MG Tablet PO (09:21)
[2023-01-05] MEDS: Thiamine Hydrochloride 100 MG Tablet PO (09:21)
[2023-01-05] MEDS: Venlafaxine XR 150 MG Capsule PO (09:21)
[2023-01-05] MEDS: Enoxaparin 40 MG/0.4 ML Syringe SC (09:22)
[2023-01-05] MEDS: Acetaminophen 325 MG Tablet 650 MG PO ×2 (09:26→19:00)
[2023-01-05] MEDS: Ensure Plus High Protein 120 ML LIQUID PO (09:26)
[2023-01-05] MEDS: Lisinopril 40 MG Tablet PO (09:27)
[2023-01-05] MEDS: predniSONE 20 MG Tablet 40 MG PO (10:52)
[2023-01-05 11:30] LABS: Bedside Glucose 138 mg/dL (74-106)
[2023-01-05] MEDS: hydrOXYzine PAM 25 MG Capsule 50 MG PO ×2 (15:39→19:43)
[2023-01-05 18:25] LABS: Bedside Glucose 150 mg/dL (74-106)
[2023-01-05] MEDS: Atorvastatin Calcium 20 MG Tablet PO (21:30)
[2023-01-05] MEDS: traZODone 100 MG Tablet 200 MG PO (21:30)
[2023-01-05 22:26] LABS: Bedside Glucose 184 mg/dL (74-106)
[2023-01-06] VITALS (9 sets, daily range): BP systolic 141–162; BP diastolic 71–92; PULSE 76–88; RESP 16–21; TEMP 36–37.2; O2SAT 85–98; BMI 21.7
[2023-01-06] MEDS: hydrOXYzine PAM 25 MG Capsule 50 MG PO (03:18)
--- NOTE | 2023-01-06 03:53 | PCM.HOSP.N ---
Hospitalist Note Preliminary respiratory culture with strep pneumoCesar added.
[2023-01-06] MEDS: Ceftriaxone 1 GM/50 ML BAG IV (04:28)
[2023-01-06 06:55] LABS: Bedside Glucose 84 mg/dL (74-106)
[2023-01-06] MEDS: Ipratropium/Albuterol Sulfate 3 ML AMPUL.NEB INHALATION ×3 (07:23→19:08)
--- NOTE | 2023-01-06 07:49 | PN.HOSP_ITS ---
Reason for Visit Reason for Visit: Diagnoses Peripheral vascular disease, unspecified (01/02/23) Chronic obstructive pulmonary disease with (acute) exacerbation (01/02/23) Chest pain, unspecified (01/02/23) Rash and other nonspecific skin eruption (01/02/23) Subjective Subjective Feels okay. No further events. Objective Data Objective Data Vital Signs: Vital Signs Temp Pulse Resp BP Pulse Ox O2 Del Method O2 Flow Rate 36.7 C 76 18 149/86 H 94 Nasal Cannula 2 01/06/23 03:10 01/06/23 03:10 01/06/23 03:10 01/06/23 03:10 01/06/23 03:10 01/06/23 03:10 01/06/23 03:10 Oxygen Flow Rate (L/min) 2 Oxygen Delivery Method Nasal Cannula Weight: 59.1 kg Body Mass Index (BMI) 21.7 Intake & Output: Intake and Output for Last 24 Hours 01/04/23 01/05/23 01/06/23 23:59 23:59 23:59 Intake Total 1020 / 1320 2390 / 2390 50 / 50 Balance 1020 / 1320 2390 / 2390 50 / 50 Medical Nutrition Assessment Dietitian: Malnutrition Criteria Met Start: 01/03/23 10:58 Freq: Status: Active Protocol: Document 01/03/23 10:58 AG (Rec: 01/03/23 10:58 AG [id number]) Nutrition Malnutrition Evidence of Malnutrition Exists Yes Malnutrition (moderate): Acute Illness/Injury Evidenced By Suboptimal Energy Intake ( Moderate),Weight Loss ( Moderate) Clinical Problem Acute Disease or Injury Related Malnutrition Etiology moderate, acute malnutrition related to inadequate oral intake d/t excessive alcohol consumption Signs/Symptoms as evidenced by unintentional 6.7#/5% wt loss x 1 month; estimated PO intake meeting < 75% of estimated energy needs x 1 month Status Active Problem Recommendation Dietitian Recommendations/Changes will adjust diet to regular given evidence of acute malnutrition; continue ensure plus high protein 120mL 4x/day w/ medpass for additional protein/calories if consumed Lab / Micro Data Result Diagrams: 01/03/23 06:07 01/03/23 06:07 Labs: Laboratory Results - last 24 hr 01/05/23 11:09: POC Glucose 138 H 01/05/23 18:04: POC Glucose 150 H 01/05/23 21:29: POC Glucose 184 H 01/06/23 06:37: POC Glucose 84 Micro: Microbiology 01/02/23 23:50 Sputum, Expectorated/Coughed Gram Stain - Final 01/02/23 23:50 Sputum, Expectorated/Coughed Respiratory Culture - Final Streptococcus pneumoniae 01/02/23 23:40 Mucosa - Nasopharyngeal Respiratory Panel (PCR) - Final Physical Exam Const alert and no apparent distress HEENT head/scalp atraumatic Resp normal respiratory effort and no retractions Auscultation: wheezes Cardio regular rate, regular rhythm, S1 normal heart sound and S2 normal heart sound GI normal to inspection, nondistended, normoactive bowel sounds and soft to palpation Extremity normal to inspection Assessment & Plan Assessment/Plan (1) COPD exacerbation: PLAN: Acute Hypoxia secondary to Acute Mild on Chronic COPD exacerbation: continue ATC duonebs, PRN albuterol, HOB, IS parameters, procalcitonin requested, Respiratory panel negative Sputum culture pending On prednisone. Complicated by pneumonia. (2) Chest pain: PLAN: Chest Pain, suspected more so related to acute COPD exacerbation as noted #1: EKG in ED sinus rhythm with no evidence of ischemia, CXR w/ chronic COPD type changes with no acute cardiopulmonary findings otherwise, initial trop 17. Will place on a monitored bed to assure no acute myocardial infarction with serial cardiac enzymes and EKGs. Again lower suspicion for cardiac etiology but to be cautious we will trend enzymes, obtain FLP in a.m. as well as magnesium level. ASA, NG. If any concerning EKG changes or elevated enzymes arise may consider future stress testing. Troponins negative x3 Atypical. No additional work-up at this time. (3) Desire for detoxification: PLAN: Acute EtOH Withdrawal: Given interest in sobriety, will initiate and continue on protocol with taper course of Phenobarbital, scheduled gabapentin for seizure prophylaxis, as needed Bentyl, Vistaril, IV fluids, IV antiemetics, Tylenol as needed for pain. Will consult Case management for assistance for transition to next level of r ehabilitation care. Mag, phos pending. Maintain on CIWA protocol concurrently. (4) Peripheral arterial disease: PLAN: Patient had some type of bypass on her right leg. Currently complaining of right toe numbness. Check ABIs. Final read pending but appears to be 0.51 on the right and 0.58 on the left. Patient has had a bypass before. No evidence of any cyanosis or cert ainly no necrosis at this time. Patient does have a vascular surgeon whom she will be following up with in the future. (5) Rash: PLAN: Patient had erythema on her face as well as her upper chest but not noted elsewhere. Unclear if that was the actual drug rash sure what that actually was. Phenobarbital was discontinued. 01/05: Improved today. It cannot determine if this is due to phenobarbital or not as it had an atypical distribution with involving the upper chest and face. Patient denies any sun exposure. (6) Pneumococcal pneumonia: PLAN: Noted on sputum culture. Started on ceftriaxoneOn the . Can change to amoxicillin 1g TID upon d ischarge. Continue antibiotics through January 09. PLAN: Plan Chronic conditions: * Anxiety and depression: We will continue patient home trazodone as well as paroxetine home regimen, would benefit greatly from counseling especially given ongoing alcohol abuse and recent admissions of significant events in her life leading to increased alcohol consumption. * Hypertension: Continue home regimen including lisinopril, amlodipine, metoprolol, PRN hydralazine. * Hyperlipidemia: Cholesterol 225. LDL 114. We will start atorvastatin 20. * Tobacco Abuse: Encouraged cessation, inpatient consultation per RT, NR if desired. * GERD: We will maintain on PPI. DVT prophylaxis: SCDs, Lovenox. Disposition: To inpatient rehab unit on the . Check an ambulatory oxygen evaluation prior to discharge. Charges/Coding Visit Charges Inpatient E&M: 55855 Subs Hosp L2
[2023-01-06] MEDS: Enoxaparin 40 MG/0.4 ML Syringe SC (09:44)
[2023-01-06] MEDS: Isosorbide Mononitrate 30 MG Tablet PO (09:45)
[2023-01-06] MEDS: predniSONE 20 MG Tablet 40 MG PO (09:45)
[2023-01-06] MEDS: Venlafaxine XR 75 MG Capsule PO (09:45)
[2023-01-06] MEDS: Carvedilol 6.25 MG Tablet PO ×2 (09:45→20:27)
[2023-01-06] MEDS: Pantoprazole Sodium 40 MG Tablet PO (09:45)
[2023-01-06] MEDS: Lisinopril 40 MG Tablet PO (09:45)
[2023-01-06] MEDS: Aspirin E.C. 81 MG Tablet PO (09:46)
[2023-01-06] MEDS: Folic Acid 1 MG Tablet PO (09:46)
[2023-01-06] MEDS: Venlafaxine XR 150 MG Capsule PO (09:46)
[2023-01-06] MEDS: Thiamine Hydrochloride 100 MG Tablet PO (09:46)
[2023-01-06] MEDS: amLODIPine 5 MG Tablet PO (09:46)
[2023-01-06] MEDS: Ensure Plus High Protein 120 ML LIQUID PO ×2 (09:54→16:58)
[2023-01-06] MEDS: LORazepam 1 MG Tablet 2 MG PO (09:55)
[2023-01-06 11:55] LABS: Bedside Glucose 119 mg/dL (74-106)
[2023-01-06 17:00] LABS: Bedside Glucose 132 mg/dL (74-106)
[2023-01-06] MEDS: traZODone 100 MG Tablet 200 MG PO (20:26)
[2023-01-06] MEDS: Gabapentin 300 MG Capsule PO (20:27)
[2023-01-06] MEDS: Atorvastatin Calcium 20 MG Tablet PO (20:27)
[2023-01-07 00:30] LABS: Bedside Glucose 134 mg/dL (74-106)
[2023-01-07 03:35] VITALS: BP 150/77; PULSE 71; RESP 18; TEMP 37; O2SAT 98
[2023-01-07 06:00] VITALS: BMI 21.9
[2023-01-07 06:41] LABS: Bedside Glucose 88 mg/dL (74-106)
[2023-01-07 07:12] VITALS: PULSE 74; RESP 20; O2SAT 98
[2023-01-07] MEDS: Ipratropium/Albuterol Sulfate 3 ML AMPUL.NEB INHALATION ×2 (07:12→11:02)
[2023-01-07 09:10] VITALS: BP 138/61; PULSE 88; RESP 16; TEMP 36.6; O2SAT 96
[2023-01-07] MEDS: Aspirin E.C. 81 MG Tablet PO (09:13)
[2023-01-07] MEDS: Thiamine Hydrochloride 100 MG Tablet PO (09:13)
[2023-01-07] MEDS: predniSONE 20 MG Tablet 40 MG PO (09:13)
[2023-01-07] MEDS: Folic Acid 1 MG Tablet PO (09:13)
[2023-01-07] MEDS: Carvedilol 6.25 MG Tablet PO (09:14)
[2023-01-07] MEDS: Venlafaxine XR 150 MG Capsule PO (09:14)
[2023-01-07] MEDS: Enoxaparin 40 MG/0.4 ML Syringe SC (09:15)
[2023-01-07] MEDS: Isosorbide Mononitrate 30 MG Tablet PO (09:15)
[2023-01-07] MEDS: Lisinopril 40 MG Tablet PO (09:16)
[2023-01-07] MEDS: amLODIPine 5 MG Tablet PO (09:16)
[2023-01-07] MEDS: Pantoprazole Sodium 40 MG Tablet PO (09:16)
[2023-01-07] MEDS: Ensure Plus High Protein 120 ML LIQUID PO (09:24)
[2023-01-07] MEDS: hydrOXYzine PAM 25 MG Capsule 50 MG PO (09:26)
--- NOTE | 2023-01-07 10:50 | ADDICTION ---
FILIPPO spoke with Linda from [facility] in [place]. 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
[2023-01-07 11:02] VITALS: PULSE 90; RESP 20
--- NOTE | 2023-01-07 11:04 | CASEMGMT ---
Vishnu, cardiac nurse specialist and [facility] will pick patient up around the noonish time period. SW notified charge attendant and RN. Yolanda Skelton SUPERVISOR [employer]SEMBLY VARNISHING MACHINE OPERATOR
[2023-01-07] MEDS: Venlafaxine XR 75 MG Capsule PO (11:10)
[2023-01-07] MEDS: levoFLOXacin 500 MG Tablet PO (11:22)
[2023-01-07 11:27] VITALS: O2SAT 90; O2SAT 93
--- NOTE | 2023-01-07 11:43 | DCINST_ITS ---
Discharge Instructions Diet Discharge Diet: No restrictions Activity Discharge Activity: Return to Normal Activity Weight Bearing Status: Full weight bearing Follow Up Care Test Results: Test results from this visit will be discussed in further detail at your follow- up appointment, if applicable. Discharge Plan Admission Admit Date/Time: 01/02/23 21:18 Primary Reason for Your Visit: alcohol withdrawal, pneumonia Attending Provider: Siddhartha Teague Primary Care Provider: Ulises Hermosillo Consulting Providers: Linda Luque ; Joel Sauer Discharge Orders/Prescriptions Prescriptions: New levofloxacin 500 mg tablet 500 mg PO DAILY Qty: 5 0RF prednisone 20 mg tablet 20 mg PO DAILY Qty: 5 0RF Rx Instructions: take starting on 01/08/23 for 5 days Continued albuterol sulfate [Ventolin HFA] 1 INHALER inhaler 2 puff inhalation Q2H PRN (Reason: Wheezing) Qty: 1 2RF Label Comments: inhaler, asthma trazodone 100 MG tablet 200 mg PO QHS Label Comments: paroxetine HCl [Paxil] 30 mg tablet 30 mg PO DAILY Label Comments: Take 1 tablet by mouth every morning metoprolol tartrate 25 MG tablet 25 mg PO BID Label Comments: TAKE 1 TABLET BY MOUTH TWICE DAILY. Omeprazole [Prilosec] 40 MG capsule 40 mg PO DAILY hydroxyzine pamoate [Vistaril] 50 mg capsule 50 mg PO TID PRN PRN (Reason: Anxiety) Label Comments: 1 capsule three times a day as needed amlodipine 5 MG tablet 5 mg PO DAILY lisinopril 40 MG tablet 40 mg PO DAILY venlafaxine 75 mg capsule,extended release 24hr 75 mg PO DAILY Label Comments: TAKE 1 CAPSULE BY MOUTH ONCE DAILY. TAKE WITH 150 MG CAPSULE TO =150 MG Rx Instructions: Take with 150mg dose venlafaxine 150 mg capsule,extended release 24hr 150 mg PO DAILY Label Comments: TAKE 1 CAPSULE BY MOUTH ONCE DAILY. TAKE WITH 75 MG CAPSULE TO =225 MG Rx Instructions: Take with 75mg dose carvedilol 6.25 mg tablet 6.25 mg PO BID Label Comments: TAKE 1 TABLET BY MOUTH TWICE A DAY isosorbide mononitrate 30 mg tablet extended release 24 hr 30 mg PO DAILY Label Comments: TAKE 1 TABLET BY MOUTH EVERY DAY Referrals / Follow Up: Ulises Hermosillo MD [Primary Care Provider] - Disposition Disposition (needs filled in before D/C Order can be placed): Home, Self Care
--- NOTE | 2023-01-07 11:57 | DS.PCM_ITS ---
Providers Date of Admission: 01/02/23 Date of Discharge: 01/07/23 Primary Care Physician: Dr. Ulises Hermosillo MD Reason For Visit: CHEST PAIN, COPD EXAC, ETOH WITHDRAWAL Diagnosis Discharge Diagnosis (1) COPD exacerbation: Status: Inactive Code(s): J44.1 - Chronic obstructive pulmonary disease with (acute) exacerbation (2) Chest pain: Status: Inactive Code(s): R07.9 - Chest pain, unspecified (3) Desire for detoxification: Status: Inactive (4) Peripheral arterial disease: Status: Acute Code(s): I73.9 - Peripheral vascular disease, unspecified (5) Rash: Status: Inactive Code(s): R21 - Rash and other nonspecific skin eruption (6) Pneumococcal pneumonia: Status: Inactive Code(s): J13 - Pneumonia due to Streptococcus pneumoniae Plan 1. COPD exacerbation #2 acute alcohol withdrawal #3 peripheral vascular disease #4 musculoskeletal chest pain #5 pneumococcal pneumonia #6 hypoxia secondary to #1 Medications at Discharge Home Medications albuterol sulfate 90 mcg/actuation aerosol inhaler (Ventolin HFA) 2 puff inhalation Q2H PRN Wheezing ##1 05/25/14 Omeprazole [Prilosec] 40 mg PO DAILY ACID REFLUX 02/01/17 metoprolol tartrate 25 mg tablet 25 mg PO BID BLOOD PRESSURE 02/01/17 paroxetine HCl 30 mg tablet (Paxil) 30 mg PO DAILY MENTAL HEALTH 02/01/17 trazodone 100 mg tablet 200 mg PO QHS SLEEP 02/01/17 amlodipine 5 mg tablet 5 mg PO DAILY BLOOD PRESSURE 07/29/17 hydroxyzine pamoate 50 mg capsule (Vistaril) 50 mg PO TID PRN PRN Anxiety 07/29/17 lisinopril 40 mg tablet 40 mg PO DAILY BLOOD PRESSURE 07/29/17 carvedilol 6.25 mg tablet 6.25 mg PO BID blood pressure 01/03/23 isosorbide mononitrate 30 mg tablet,extended release 24 hr 30 mg PO DAILY chest pain and heart failure 01/03/23 venlafaxine 150 mg capsule,extended release 24 hr 150 mg PO DAILY depression 01/03/23 venlafaxine 75 mg capsule,extended release 24 hr 75 mg PO DAILY depression 01/03/23 levofloxacin 500 mg tablet 500 mg PO DAILY #5 tabs 01/07/23 prednisone 20 mg tablet 20 mg PO DAILY #5 tabs 01/07/23 Hospital Course Operations None Procedures None Summary of Care Provided Minutes Spent on Discharge: 31 Hospital Course: This 67-year-old white female was seen in the emergency room at [facility] with chief complaint of chest discomfort and alcohol withdrawal along with some shortness of breath. Patient admitted to intaking at least 12 beers a day, she was interested in alcohol detox. Work-up in the emergency room showed a normal white blood cell count, normal hemoglobin, troponin was unremarkable, chest x-ray showed changes compatible with COPD but no acute cardiopulmonary process. Patient required low-flow nasal cannula oxygen to maintain her pulse ox above 90%. Patient was admitted to PCU, she was placed on medications for alcohol detox and sputum culture grew out Streptococcus pneumoniae, she was treated with antibiotics and had no untoward DTs during her hospital stay. Patient met with addiction manager social services, and arrangements were made for the patient to go to an inpatient detox center at the time of discharge from the hospital. Patient was placed on corticosteroids for COPD exacerbation, patient's cardiac enzymes were never elevated. On 01/07/2023, patient was seen and examined: On examination she appeared in good health and spirits. Vital signs as documented. Skin warm and dry and without overt rashes. Neck without JVD, neck was supple, trachea midline, thyroid was normal. Lungs clear bilaterally, normal air movement was noted. Heart exam notable for regular rhythm, normal sounds and absence of murmurs, rubs or gallops. Abdomen unremarkable and without evidence of organomegaly, masses, or abdominal aortic enlargement. Bowel sounds are present, abdomen is not distended. Extremities nonedematous, no cyanosis was noted, no clubbing was noted. Neuro: Cranial nerves II through XII are grossly intact, no focal motor deficits were noted, sensation to light touch and pinprick intact, motor exam 5/5 throughout. Psych: Patient is alert and oriented x3, she does not appear anxious or depressed, she does not appear agitated. Patient was discharged on 01/07/2023 to an inpatient detox facility. Medical Records Data Medical Nutrition Assessment Dietitian: Malnutrition Criteria Met Start: 01/03/23 10:58 Freq: Status: Active Protocol: Document 01/03/23 10:58 AG (Rec: 01/03/23 10:58 AG [id number]) Nutrition Malnutrition Evidence of Malnutrition Exists Yes Malnutrition (moderate): Acute Illness/Injury Evidenced By Suboptimal Energy Intake ( Moderate),Weight Loss ( Moderate) Clinical Problem Acute Disease or Injury Related Malnutrition Etiology moderate, acute malnutrition related to inadequate oral intake d/t excessive alcohol consumption Signs/Symptoms as evidenced by unintentional 6.7#/5% wt loss x 1 month; estimated PO intake meeting < 75% of estimated energy needs x 1 month Status Active Problem Recommendation Dietitian Recommendations/Changes will adjust diet to regular given evidence of acute malnutrition; continue ensure plus high protein 120mL 4x/day w/ medpass for additional protein/calories if consumed Weight / BMI Weight Weight: 59.8 kg Body Mass Index (BMI) 21.9 ABG / Lab / Microbiology Data Result Diagrams: 01/03/23 06:07 01/03/23 06:07 Laboratory: Laboratory Results - last 24 hr 01/06/23 16:38: POC Glucose 132 H 01/06/23 20:12: POC Glucose 134 H 01/07/23 06:07: POC Glucose 88 Microbiology: Microbiology 01/02/23 23:50 Sputum, Expectorated/Coughed Gram Stain - Final 01/02/23 23:50 Sputum, Expectorated/Coughed Respiratory Culture - Final Streptococcus pneumoniae 01/02/23 23:40 Mucosa - Nasopharyngeal Respiratory Panel (PCR) - Final Radiography Diagnostic Testing: Radiology Impression Ankle Brachial Index 01/03/23 15:30 Interpretation Summary Right CRISTIAN 0.58, moderate arterial insufficiency. Doppler/PVR waveforms of the right ankle moderately diminished at rest. Left CRISTIAN 0.59, moderate arterial insufficiency. Doppler/PVR waveforms of the left ankle moderately diminished at rest. Ordering Physician: Joel Sauer Referring Physician: MD Ben Hermosillo Performed By: Pedro Brandt RVT D/C Instructions Discharge Diet: No restrictions Weight Bearing Status: Full weight bearing Meaningful Use Info Meaningful Use Diagnoses (Choose all that apply): None applicable Discharge Plan Admission Admit Date/Time: 01/02/23 21:18 Primary Reason for Your Visit: alcohol withdrawal, pneumonia Attending Provider: Siddhartha Teague Primary Care Provider: Ulises Hermosillo Consulting Providers: Linda Luque ; Joel Sauer Discharge Orders/Prescriptions Prescriptions: New levofloxacin 500 mg tablet 500 mg PO DAILY Qty: 5 0RF prednisone 20 mg tablet 20 mg PO DAILY Qty: 5 0RF Rx Instructions: take starting on 01/08/23 for 5 days Continued albuterol sulfate [Ventolin HFA] 1 INHALER inhaler 2 puff inhalation Q2H PRN (Reason: Wheezing) Qty: 1 2RF Label Comments: inhaler, asthma trazodone 100 MG tablet 200 mg PO QHS Label Comments: paroxetine HCl [Paxil] 30 mg tablet 30 mg PO DAILY Label Comments: Take 1 tablet by mouth every morning metoprolol tartrate 25 MG tablet 25 mg PO BID Label Comments: TAKE 1 TABLET BY MOUTH TWICE DAILY. Omeprazole [Prilosec] 40 MG capsule 40 mg PO DAILY hydroxyzine pamoate [Vistaril] 50 mg capsule 50 mg PO TID PRN PRN (Reason: Anxiety) Label Comments: 1 capsule three times a day as needed amlodipine 5 MG tablet 5 mg PO DAILY lisinopril 40 MG tablet 40 mg PO DAILY venlafaxine 75 mg capsule,extended release 24hr 75 mg PO DAILY Label Comments: TAKE 1 CAPSULE BY MOUTH ONCE DAILY. TAKE WITH 150 MG CAPSULE TO =150 MG Rx Instructions: Take with 150mg dose venlafaxine 150 mg capsule,extended release 24hr 150 mg PO DAILY Label Comments: TAKE 1 CAPSULE BY MOUTH ONCE DAILY. TAKE WITH 75 MG CAPSULE TO =225 MG Rx Instructions: Take with 75mg dose carvedilol 6.25 mg tablet 6.25 mg PO BID Label Comments: TAKE 1 TABLET BY MOUTH TWICE A DAY isosorbide mononitrate 30 mg tablet extended release 24 hr 30 mg PO DAILY Label Comments: TAKE 1 TABLET BY MOUTH EVERY DAY Referrals / Follow Up: Ulises Hermosillo MD [Primary Care Provider] - Disposition Disposition (needs filled in before D/C Order can be placed): Home, Self Care Charges/Coding Visit Charges Inpatient E&M: 12114 Disch Hosp >30min
--- NOTE | 2023-01-07 12:10 | PHA.DC.MR ---
Pharmacy Service has performed discharge medication reconciliation for this patient. The patient's discharge medication list was reviewed for discrepancies and discrepancies were resolved. Home Medications albuterol sulfate 90 mcg/actuation aerosol inhaler (Ventolin HFA) 2 puff inhalation Q2H PRN Wheezing ##1 05/25/14 Omeprazole [Prilosec] 40 mg PO DAILY ACID REFLUX 02/01/17 metoprolol tartrate 25 mg tablet 25 mg PO BID BLOOD PRESSURE 02/01/17 paroxetine HCl 30 mg tablet (Paxil) 30 mg PO DAILY MENTAL HEALTH 02/01/17 trazodone 100 mg tablet 200 mg PO QHS SLEEP 02/01/17 amlodipine 5 mg tablet 5 mg PO DAILY BLOOD PRESSURE 07/29/17 hydroxyzine pamoate 50 mg capsule (Vistaril) 50 mg PO TID PRN PRN Anxiety 07/29/17 lisinopril 40 mg tablet 40 mg PO DAILY BLOOD PRESSURE 07/29/17 carvedilol 6.25 mg tablet 6.25 mg PO BID blood pressure 01/03/23 isosorbide mononitrate 30 mg tablet,extended release 24 hr 30 mg PO DAILY chest pain and heart failure 01/03/23 venlafaxine 150 mg capsule,extended release 24 hr 150 mg PO DAILY depression 01/03/23 venlafaxine 75 mg capsule,extended release 24 hr 75 mg PO DAILY depression 01/03/23 levofloxacin 500 mg tablet 500 mg PO DAILY #5 tabs 01/07/23 prednisone 20 mg tablet 20 mg PO DAILY #5 tabs 01/07/23
[2023-01-07 12:34] VITALS: BP 121/55; PULSE 79; RESP 18; TEMP 36.8; O2SAT 90
== END 2023-01-07 13:58 | disposition other institution (70) | DRG 191 ==
LOC: ED 21:27 → PCU 21:41
PROVIDERS: Admitting Provider Family Medicine; Emergency Provider Emergency Medicine; PCP Internal Medicine; Visit Provider Internal Medicine
DX: J44.1 Chronic obstructive pulmonary disease with (acute) exacerbation (principal); E44.0 Moderate protein-calorie malnutrition; F10.239 Alcohol dependence with withdrawal, unspecified; Z99.81 Dependence on supplemental oxygen; J44.0 Chronic obstructive pulmonary disease with (acute) lower respiratory infection; I73.9 Peripheral vascular disease, unspecified; F10.229 Alcohol dependence with intoxication, unspecified; I10 Essential (primary) hypertension; E78.5 Hyperlipidemia, unspecified; K21.9 Gastro-esophageal reflux disease without esophagitis; L53.9 Erythematous condition, unspecified; F17.210 Nicotine dependence, cigarettes, uncomplicated; R09.02 Hypoxemia; R20.0 Anesthesia of skin; R21 Rash and other nonspecific skin eruption; Z78.0 Asymptomatic menopausal state; Z79.899 Other long term (current) drug therapy; Y90.5 Blood alcohol level of 100-119 mg/100 ml; Z95.820 Peripheral vascular angioplasty status with implants and grafts; Z68.21 Body mass index [BMI] 21.0-21.9, adult
CPT/HCPCS: 36415; 71045; 80053; 80061; 80307; 80320; 81001; 82962; 83036; 83690; 83735; 84100; 84145; 84484; 85025; 87070; 87077; 87186; 87205; 87633; 93005; 93922; 94640; 94668; 97802; 99252; 99283; 99406; J7030; J7050; A4216; G0463; G0480

== ENCOUNTER 2025-10-09 00:41 | Emergency (ER) | payer MEDICARE, MEDICAID, SELFPAY ==
[2025-10-09] VITALS (17 sets, daily range): BP systolic 108–166; BP diastolic 56–151; PULSE 84–115; RESP 16–23; TEMP 36.6–36.7; O2SAT 86–98; BMI 20.7
--- NOTE | 2025-10-09 00:52 | EKG12_ITS ---
Test Reason : CP Blood Pressure : */* mmHG Vent. Rate : 105 BPM Atrial Rate : 105 BPM P-R Int : 146 ms QRS Dur : 78 ms QT Int : 360 ms P-R-T Axes : 82 66 -51 degrees QTcB Int : 475 ms Sinus tachycardia Possible Left atrial enlargement Nonspecific ST and T wave abnormality Abnormal ECG Confirmed by Zaid Umanzor ([id number]), editorial assistant NEHA RUSS ([id number]) on 10/11/2025 8:45:16 AM Referred By: Confirmed By: Zaid Umanzor
[2025-10-09] MEDS: 0.9% Normal Saline (1000mL) 1,000 ML 999 ML IV (01:03)
[2025-10-09 01:08] LABS: Hematocrit 35.3 % (37-47); Hemoglobin 10.9 g/dL (12.0-15.0); Immature Granulocytes Count 0.060 X10^3/uL (0.0-0.0); Mean Corp Hgb Conc 30.9 g/dL (32-36); Mean Corpuscular Volume 81.7 fL (81-99); Mean Platelet Vol. 9.9 fl (6.2-12.0); NRBC Flagged by Analyzer 0 % (0-5); POSITIVE DIFFERENTIAL YES; Platelet Count 706 K/mm3 (150-450); RBC Distribution Width CV 17.2 % (11.6-14.6); RBC Distribution Width SD 50.4 fl (35.1-43.9); Red Blood Count 4.32 M/mm3 (4.2-5.4); White Blood Count 14.1 K/mm3 (4.4-11.0)
--- NOTE | 2025-10-09 01:08 | RAD_ITS ---
PROCEDURE: CHEST 1 VIEW (PORTABLE) 10/09/2025 REASON FOR EXAM: CHEST PAIN TECHNIQUE: Frontal view of the chest. COMPARISON: 01/02/2023. FINDINGS: The lungs are hyperinflated, unchanged. There is no demonstrated acute parenchymal abnormality. There is no demonstrated pleural abnormality. Normal heart and pericardium. Normal mediastinum and estrellita. Normal visualized pulmonary arteries. Normal visualized aortic arch and descending thoracic aorta. Normal visualized thoracic spine. Normal visualized ribs, clavicles, and shoulders. There is no demonstrated abnormality of the visualized soft tissue structures of the upper abdomen. Unremarkable lower cervical fusion metallic hardware. RAD/Chest 1 View (Portable) IMPRESSION: No evidence for acute abnormality. Reading Location: [facility]
--- NOTE | 2025-10-09 01:11 | ED.RN ---
Addendum entered by Salima Gillespie 10/09/25 02:51: pt is not cooperative. Original Note: pt moving about the bed and is cooperative. pt kicking and using foul language towards staff. have to give her multiple request to cooperative so that we may help her.
--- NOTE | 2025-10-09 01:25 | EDS_ITS ---
HPI History of Present Illness Chief Complaint: Chest Pain Narrative Narrative: Patient was seen and examined after presenting to ED for cramping pain in her legs that also is causing cramping pain into her chest there is concern that she has underlying dementia she is coming from home initially but apparently has been staying at some sort of facility recently. [facility] Medical History Pneumococcal pneumonia Rash Peripheral arterial disease Bipolar disorder Anxiety GERD (gastroesophageal reflux disease) On home oxygen therapy Coronary artery disease COPD exacerbation Chest pain Desire for detoxification Alcohol abuse Tobacco use Anxiety and depression HLD (hyperlipidemia) Hypertension COPD (chronic obstructive pulmonary disease) Home Medications Medication Instructions Recorded Last Taken Type albuterol sulfate 90 mcg/actuation 2 puff inhalation Q 2H PRN Wheezing 05/25/14 02/21/18 Rx aerosol inhaler (Ventolin HFA) ##1 Omeprazole [Prilosec] 40 mg PO DAILY ACID REFLUX 0 02/01/17 02/21/18 History metoprolol tartrate 25 mg tablet 25 mg PO BID BLOOD DE ESSURE 02/01/17 02/21/18 History paroxetine HCl 30 mg tablet (Paxil) 30 mg PO DAILY [facility] 02/01/17 02/21/18 History trazodone 100 mg tablet 200 mg PO QHS SLEEP 02/01/17 Unknown History amlodipine 5 mg tablet 5 mg PO DAILY BLOOD PRESSURE 07/29/17 02/21/18 History hydroxyzine pamoate 50 mg capsule 50 mg PO TID PRN PRN Anxiety 07/29/17 Unknown History (Vistaril) lisinopril 40 mg tablet 40 mg PO DAILY BLOOD PRESSUR E 07/29/17 02/21/18 History carvedilol 6.25 mg tablet 6.25 mg PO BID blood pressur e 01/03/23 Unknown History isosorbide mononitrate 30 mg 30 mg PO DAILY chest pain and 01/03/23 Unknown History tablet,extended release 24 hr heart failure venlafaxine 150 mg 150 mg PO DAILY depression 0 01/03/23 Unknown History capsule,extended release 24 hr venlafaxine 75 mg capsule,extended 75 mg PO DAILY depr ession 01/03/23 Unknown History release 24 hr levofloxacin 500 mg tablet 500 mg PO DAILY #5 tabs 02/ 27/23 Unknown Rx prednisone 20 mg tablet 20 mg PO DAILY #5 tabs 01/07 Unknown Rx doxycycline hyclate 100 mg tablet 100 mg PO BID #14 ta bs 10/09/25 Unknown Rx Allergy/AdvReac Type Severity Reaction Status Date / Time phenobarbital AdvReac Rash Verified 10/09/25 00:43 Family History Mother Liver cancer Father Lung cancer Surgical History History of appendectomy History of cholecystectomy S/P cholecystectomy S/P appendectomy History of tonsillectomy History of cervical spinal surgery Social History household members: spouse Smoking Status: Current every day smoker tobacco type: cigarettes alcohol intake: current alcohol intake frequency: 3 or more drinks per day details: 12-14 beers daily. substance use type: does not use ROS ROS ED ROS Narrative Pertinent Positives: I have cramping in my legs and is going into my chest Pertinent Negatives: Chest pressure shortness of breath vomiting fevers chills The remainder of review of systems negative unless otherwise stated in the HPI above. Systems reviewed including constitutional, psychiatric, cardiovascular, respiratory, integument, HENT, gastrointestinal. EXAM Physical Exam Narrative Exam Narrative: Patient is afebrile hemodynamically stable does not appear toxic or in distress she keeps moving her legs. No noticeable wounds lesions redness swelling or calf tenderness she has intact and equal MSPs normal heart and lung sounds nonreproducible pain or any other symptom involving her chest she has normal he art and lung sounds abdomen is soft nontender nondistended no palpable pulsatile mass Const Vital Signs: 10/09/25 00:42 10/09/25 00:48 10/09/25 01:07 Temperature 98.0 F Temperature Source Oral Pulse Rate 102 H Respiratory Rate 16 Respiratory Pattern Normal Blood Pressure 131/82 H Blood Pressure Mean 98 Pulse Ox 98 95 Oxygen Delivery Method Room Air 10/09/25 01:21 10/09/25 01:25 10/09/25 01:30 Temperature Temperature Source Pulse Rate 101 H Respiratory Rate 22 H Respiratory Pattern Blood Pressure 124/71 H 124/74 H Blood Pressure Mean 80 88 Pulse Ox 94 95 Oxygen Delivery Method 10/09/25 01:45 10/09/25 02:00 10/09/25 02:06 Temperature Temperature Source Pulse Rate 99 Respiratory Rate 23 H Respiratory Pattern Blood Pressure 144/95 H 166/151 H Blood Pressure Mean 112 158 Pulse Ox 88 92 Oxygen Delivery Method 10/09/25 02:15 10/09/25 02:30 10/09/25 02:45 Temperature Temperature Source Pulse Rate 115 H Respiratory Rate 20 H Respiratory Pattern Blood Pressure Blood Pressure Mean Pulse Ox 88 86 Oxygen Delivery Method 10/09/25 03:00 10/09/25 03:15 10/09/25 03:30 Temperature Temperature Source Pulse Rate 89 84 85 Respiratory Rate 23 H 21 H 20 H Respiratory Pattern Blood Pressure Blood Pressure Mean Pulse Ox 90 90 92 Oxygen Delivery Method 10/09/25 03:45 10/09/25 04:00 Temperature Temperature Source Pulse Rate Respiratory Rate Respiratory Pattern Blood Pressure Blood Pressure Mean Pulse Ox 92 93 Oxygen Delivery Method MDM MDM MDM Narrative Medical decision making narrative: Nursing notes, triage notes, available previous documentation, and vital signs were reviewed. Any discrepancies noted were addressed. Differential Diagnoses: Low suspicion for ACS or PE as could be electrolytes will evaluate as well as for rhabdo could be dehydration Interventions: Haldol and Versed Fluids Given: 1 L normal saline Labs Reviewed: Slight leukocytosis 14.1 hemoglobin was 10.9 no significant electrolyte abnormality but her BUN was elevated at 32 initial troponin was 22 delta troponin being 20 her proBNP was 1000. CPK was only 93 so not rhabdo Imaging Reviewed: Personally reviewed and interpreted by me: Chest x-ray no pneumonia edema widened mediastinum or pneumothoraces EKG: Sinus tachycardia rate of 105. I do not see evidence of ACS. QTc is 475. No evidence of AV Block. No short DE intervals, wide QRS, or Delta waves indicative of WPW. No evidence of dagger-like q waves or LVH indicative of Hypertrophic Cardiomyopathy. No evidence of Brugada Syndrome. EKG interpretation is noted and agreed to in the EMR. The interpretation of this patient's EKG contributed directly to the care and management of this patient. Previous Documentation Reviewed: None available or applicable at this time. ED Course: Patient presenting with cramping mostly in her legs states that it started to also go up into her chest we will evaluate for signs of dehydration very low suspicion for ACS. 0400: Given her history of COPD with her leukocytosis and her symptoms we will go ahead and provide her with a course of doxycycline for her facility patient did require medications via Versed and Haldol because she was becoming belligerent and aggressive with the staff. Patient ended up sleeping. This was after she pulled out her IV. Her delta troponin was effectively flat she is hemodynamically stable I believe she can go back to the facility and follow-up with her primary care should she be worse she can always return This note was made utilizing voice recognition software. All attempts were made to correct spelling or other errors prior to note completion. However, due to the fast-paced nature of emergency medicine, some errors may still be present. Lab Data Labs: Laboratory Results - last 24 hr 10/09/25 10/09/25 00:58 03:00 WBC 14.1 H RBC 4.32 Hgb 10.9 L Hct 35.3 L MCV 81.7 MCH 25.2 L MCHC 30.9 L RDW Std Deviation 50.4 H RDW Coeff of Ni 17.2 H Plt Count 706 H MPV 9.9 Immature Gran % (Auto) 0.400 Neut % (Auto) 50.1 Lymph % (Auto) 33.8 Hughes % (Auto) 12.6 H Eos % (Auto) 2.1 Baso % (Auto) 1.0 Absolute Neuts (auto) 7.0 Absolute Lymphs (auto) 4.75 H Nucleated RBC % 0 Differential Comment SCANNED Sodium 136 Potassium 4.7 Chloride 98 Carbon Dioxide 23.4 Anion Gap 15 BUN 32 H Creatinine 1.06 Estim Creat Clear Calc 44.05 L Est GFR (MDRD) Non-Af 57 L BUN/Creatinine Ratio 29.7 H Glucose 92 Calcium 8.5 Total Creatine Kinase 93 Troponin T High Sens 22 H Troponin T Hi Sens 2 Hr 20 H NT pro BNP II 1022 H Radiography Diagnostic Testing: Clinical Impression(s) from Imaging Studies Chest X-Ray 10/09/25 01:08 IMPRESSION: No evidence for acute abnormality. [facility] [id number] Discharge Plan Triage Chief Complaint: Chest Pain ED Provider: Tatiana Javier Dx/Rx/DC Orders Clinical Impression: Cramp of both lower extremities, Elevated troponin, History of COPD, History of dementia Instructions: ED Leg Cramps Prescriptions: New doxycycline hyclate 100 mg tablet 100 mg PO BID Qty: 14 0RF No Action albuterol sulfate [Ventolin HFA] 1 INHALER inhaler 2 puff inhalation Q2H PRN (Reason: Wheezing) Qty: 1 2RF Patient Comments: inhaler, asthma trazodone 100 MG tablet 200 mg PO QHS Patient Comments: paroxetine HCl [Paxil] 30 mg tablet 30 mg PO DAILY Patient Comments: Take 1 tablet by mouth every morning metoprolol tartrate 25 MG tablet 25 mg PO BID Patient Comments: TAKE 1 TABLET BY MOUTH TWICE DAILY. Omeprazole [Prilosec] 40 MG capsule 40 mg PO DAILY hydroxyzine pamoate [Vistaril] 50 mg capsule 50 mg PO TID PRN PRN (Reason: Anxiety) Patient Comments: 1 capsule three times a day as needed amlodipine 5 MG tablet 5 mg PO DAILY lisinopril 40 MG tablet 40 mg PO DAILY venlafaxine 75 mg capsule,extended release 24hr 75 mg PO DAILY Patient Comments: TAKE 1 CAPSULE BY MOUTH ONCE DAILY. TAKE WITH 150 MG CAPSULE TO =150 MG Rx Instructions: Take with 150mg dose venlafaxine 150 mg capsule,extended release 24hr 150 mg PO DAILY Patient Comments: TAKE 1 CAPSULE BY MOUTH ONCE DAILY. TAKE WITH 75 MG CAPSULE TO =225 MG Rx Instructions: Take with 75mg dose carvedilol 6.25 mg tablet 6.25 mg PO BID Patient Comments: TAKE 1 TABLET BY MOUTH TWICE A DAY isosorbide mononitrate 30 mg tablet extended release 24 hr 30 mg PO DAILY Patient Comments: TAKE 1 TABLET BY MOUTH EVERY DAY levofloxacin 500 mg tablet 500 mg PO DAILY Qty: 5 0RF prednisone 20 mg tablet 20 mg PO DAILY Qty: 5 0RF Rx Instructions: take starting on 01/08/23 for 5 days Primary Care Provider: Brian Jessica Referrals: Ulises Hermosillo MD [Med Staff - [employer]rap Hoist Operator, Internal Medicine] Activity Restrictions/Additional Instructions: Be sure to follow-up with your primary care doctor should you have worsening symptoms do not hesitate to return take the antibiotics to completion Print Language: Wallisian Disposition Disposition: Home, Self Care
[2025-10-09 02:06] LABS: Troponin T High Sensitivity 22 ng/L (<=14)
[2025-10-09 02:07] LABS: Anion Gap 15 (5-15); BUN 32 mg/dL (4-19); BUN/Creat Ratio 29.7 RATIO (10-20); CPK Total, Creatine Kinase 93 U/L (24-195); Calcium,Total 8.5 mg/dL (7.6-11.0); Carbon Dioxide 23.4 mmol/L (21.0-32.0); Chloride 98 mmol/L (98-108); Estimated Creatinine Clearance 44.05 ml/min (50-250); Glucose 92 mg/dL (70-99); Potassium 4.7 mmol/L (3.3-5.1); Pro- Brain NATRIURETIC PEPTIDE 1022 pg/mL (<=900)
[2025-10-09] MEDS: Midazolam 5 MG/ML Syringe IM (02:20)
--- NOTE | 2025-10-09 02:38 | ED.RN ---
0220pt remains verbally abusive to staff and is cussing at staff. pt pulled her iv out of her foot and then started yelling us for her having IV fluid on the floor and bed have blood stains. Unable to de-escalate the pt.She received Versed. IV fluid cleaned up.
[2025-10-09 02:40] LABS: Differential Indicated SCAN CRITERIA MET
--- OUTSIDE RECORDS SUMMARY | 2025-10-09 03:22 | XMS RPT_ITS | CCD ---
Author Organization [facility] Care Team Providers Care Lease Administration Analyst Name Role Phone PROVIDER, UNKNOWN Unavailable Unavailable No, PCP Unavailable Unavailable Qasim Martinez Unavailable Ulises Caruso MD Primary Care Provider DR ULISES HERMOSILLO MD Primary Care Physician Ulises Hermosillo MD Primary Care Provider ULISES HERMOSILLO Primary Care Unavailable TRACY RAMIRES Referring Unavailable ULISES HERMOSILLO Primary Care Unavailable TRACY RAMIRES E Referring Unavailable ULISES HERMOSILLO Primary Care Unavailable PROVIDER, UNKNOWN Referring Unavailable ULISES HERMOSILLO Primary Care Unavailable Ulises Hermosillo MD Primary Care Provider EMMANUEL KILLIAN Attending Unavailable MODESTA CASTILLO., DR. MONTGOMERY Primary Care Jenaro GODDARD MD, BETINA A Consulting Unavailable ZINA GLOVER Attending Unavailable MODESTA CASTILLO., DR. MONTGOM[place] Primary Care Jenaro COMBS MD, JOSE ROBERTO V Attending Unavailab lesly HERMOSILLO MD., DR. MONTGOMERY Primary Care Jenaro GODDARD MD, BETINA A Admitting Unavailable MODESTA CASTILLO., DR. MONTGOMERY Primary Care Jenaro SHELLEY MD, LAVERNE Attending Unavaila ble Modesta, Dr. Montgomery Primary Care Provider MD Miah Koroma Emergency Provider Dr. Linda Luque Attending Provider Dr. Linda Luque Admit Provider Dr. Linda Luque Other Provider Dr. Joel Sauer Attending Provider Dr. Joel Sauer Other Provider Dr. Joel Ji Attending Provider Unavailable Primary Care Provider UnavailARMANDO Christianson Attending Unavailable DORON SELF Attending Unavailable HERMOSILLO, KAYLEEN Primary Care Unavailable DORON SELF Referring Unavailable HERMOSILLO, KAYLEEN Primary Care Unavailable OLDER, OLY Attending Unavailable HERMOSILLO, KAYLEEN Primary Care Unavailable ISAURO ASHER Referring Unavailable HERMOSILLO, KAYLEEN Primary Care Unavailable ISAURO ASHER Referring Unavailable HERMOSILLO, KAYLEEN Primary Care Unavailable ISAURO ASHER Attending Unavailable HERMOSILLO, KAYLEEN Primary Care Unavailable MELY GRIFFIN Attending Unavailable SELF Referring Unavailable HERMOSILLO, KAYLEEN Primary Care Unavailable OLDER, OLY Referring Unavailable HERMOSILLO, KAYLEEN Primary Care Unavailable OLDER, OLY Referring Unavailable HERMOSILLO, KAYLEEN Primary Care Unavailable SELF Referring Unavailable HERMOSILLO, KAYLEEN Primary Care Unavailable OLDER, OLY Attending Unavailable Unavailable Primary Care Provider Unavailcarlo Hermosillo MD, Ulises Deal Primary Care Provider Rashad Hoover RN, Gabriella Unavailable EMMA QUEEN DO Primary Care Physician MARIELLA ESTEBAN MD, DR PEDRAZA Attending Unav ailable BERNICE DO, EMMA M Primary Care Unavailable RAYMOND RAMOS MD Consulting Unavailable JENNIEEY DO, EMMA M Primary Care Unavailable SOSA [facility]ANESTHESIOLOGY FACULTY, ELLEN Attending Unavailab lesly FANG MD, DR LYNCH Attending Unavailab EMMA Aguirre DO Primary Care Unavailable ANKITA CASTILLO, DR ROWE Admitting Unavailab lesly LUCIANO MD, DR ROWE Consulting Unavailab lesly FANG MD, DR LYNCH Consulting Unavailab lesly Hermosillo, Ulises Primary Care Unavailable Brian Rodriguez Attending Unavailable EMBERTCHEY, EMMA Primary Care Unavailable JASMINE KINNEY, GWYN De La O Admitting Unavailable SHAUNA VALDEZ DO Attending Unavailable JENNIEEY, EMMA Primary Care Unavailable XAVIER GONZALEZ MD Attending Unavailable EMBERTCHEY, EMMA Primary Care Unavailable XAVIER GONZALEZ MD Attending Unavailable EMBERTCHEY, EMMA Primary Care Unavailable BERNICE, EMMA Attending Unavailable MODESTA CASTILLO, DR MONTGOMERY Primary Care Unavaila karla DIGUILLEEY, EMMA Attending Unavailable DITCHEY, EMMA Primary Care Unavailable RJ DIAS MD, V Attending Unavailable BILLANAMIKA POOLE, DR LYNN Attending Unavailable BILLANAMIKA POOLE, DR LYNN Referring Unavailable EMBERTCHEY, EMMA Primary Care Unavailable TIFFANY HANSEN DO Admitting Unavailable TAE KINNEY, ARLEN Nicolas Admitting Unalinnettei braulio QUEEN, EMMA Primary Care Unavailable JEANNE CASTILLO, JESENIA Consulting Unavailable JEANNE CASTILLO, JESENIA Attending Unavailable JEANNE CASTILLO, JESENIA Referring Unavailable BRIAN TRINIDAD DO Attending Unavailable EMBERTCHEY, EMMA Primary Care Unavailable ANKITA CASTILLO, DR ROWE Consulting Unavailab lesly SCHNEIDEREY, EMMA Primary Care Unavailable JASMINE KINNEY, GWYN De La O Admitting Unavailable SHAUNA VALDEZ DO Attending Unavailable Allergies Allergy Classification Reported Allergen(s) Allergy Type Date of Onset Reaction(s) Facility (1 source) PHENobarbital Drug Allergy 01-05-2023 [facility] (1 source) PHENobarbital Drug Allergy 01-05-2023 [facility] Repository Medications Current Medications Medication Drug Class(es) Dates Sig (Normalized) Sig (Original) albuterol 0.21 mg/ml inhalation solution (20 sources) beta2-Adrenergic Agonist Start: 01-11-2025 take 1 dose by inhalation four times daily albuterol 0.63 mg/3 mL (0.021%) inhalation solution Dose : 0.63 mg = 3 mL, Inhalation, QID, # 90 mL, 1 Refill(s), Pharmacy: [facility]/pharmacy #[id number], 167.6, cm, 01/11/25 11:11:00 EST, Height, kg, 01/11/25 11:11:00 EST, Dosing Weight Start Date: 01/11/25 Status: Ordered Medication Dispense Status: Completed Quantity: 90.0 Unit: mL Total Allowed Fills: 2 Fills Dispensed: 0 Start: 01-07-2023 take 2 puff(s) by in halation four times daily as needed for wheezing albuterol sulfate HFA (VENTOLIN HFA) 108 (90 Base) MCG/ACT inhaler Inhale 2 puffs into the lungs 4 times daily as needed for Wheezing 18 g 0 01/07/2023 Active Start: 01-27-2021 End: 01-24-2024 take 2 puff(s) by inhalation every six hours as needed for wheezing albuterol HFA (VENTOLIN HFA) 90 mcg/actuation inhaler Indications: Wheezing Inhale 2 Puffs as instructed every 6 hours as needed for wheezing/shortness of breath. 80 g 11 06/06/2022 09/25/2023 Discontinued (Duplicate Entry) Start: 05-25-2014 take 1 puff(s) by in halation every two hours Albuterol Sulfate (Ventolin Hfa) 1 INHALER inhaler Active 2 PUFF INHALATION Q2H May 24, 2014 11:00pm take 2 puff(s) by in halation every six hours as needed for wheezing albuterol sulfate HFA 108 (90 Base) MCG/ACT inhaler Inhale 2 puffs into the lungs every 6 hours as needed for Wheezing 0 Active Comment on above: Inhale 2 Puffs as in structed every 6 hours as needed for wheezing/shortness of breath. albuterol MDI (90 mcg/inh) CFC free inhalation aerosol (9 sources) Start: 025 take 2 puff(s) by inhalation four times daily as needed for wheezing albuterol MDI (90 mcg/inh) CFC free inhalation aerosol 2 puff(s), Inhalation, QID, PRN as needed for wheezing, # 18 gram(s), 11 Refill(s), Pharmacy: [facility]/pharmacy #[id number], COPD with chronic bronchitis, 165.1, cm, 03/04/25 7:59:00 EDT, Height, kg, 03/04/25 7:59:00 EDT, Dosing Weight Start Date: 03/06/25 Status: Ordered Medication Dispense Status: Completed Quantity: 18.0 Unit: g Total Allowed Fills: 12 Fills Dispensed: 0 Indications: Other specified chronic obstructive pulmonary disease; Start: 03-06-2025 take 2 puff(s) by in halation four times daily as needed for wheezing albuterol MDI (90 mcg/inh) CFC free inhalation aerosol 2 puff(s), Inhalation, QID, PRN as needed for wheezing, # 18 gram(s), 11 Refill(s), Pharmacy: [facility]/pharmacy #[id number], COPD with chronic bronchitis, 165.1, cm, 03/04/25 7:59:00 EDT, Height, kg, 03/04/25 7:59:00 EDT, Dosing Weight Start Date: 03/06/25 Status: Ordered Quantity: 18.0 Unit: g Repeat number: 12 Indications: Other specified chronic obstructive pulmonary disease; Start: 06-14-2021 take 2 puff(s) by in halation four times daily as needed for wheezing albuterol MDI (90 mcg/inh) CFC free inhalation aerosol 2 puff(s), Inhalation, QID, PRN as needed for wheezing, # 18 gram(s), 0 Refill(s) Start Date: 06/14/21 Status: Ordered amLODIPine 5 mg oral tablet (20 sources) Dihydropyridine Calcium Channel Janki Start: 11-30-2024 amLODIPine 5 mg oral tablet Dose : 5 mg = 1 tab(s), Oral, qDay, # 30 tab(s), 11 Refill(s), Pharmacy: [facility]/pharmacy #[id number], 165, cm, 11/30/24 9:43:00 EST, Height, kg, 11/30/24 9:43:00 EST, Dosing Weight Start Date: 11/30/24 Status: Ordered Quantity: 30.0 Unit: tab(s) Repeat number: 12 Start: 06-07-2021 End: 12-23-2023 take 1 tablet by mouth once daily amLODIPine (NORVASC) 10 mg tablet TAKE 1 TABLET BY MOUTH EVERY DAY 90 tablet 3 05/29/2022 06/07/2023 Discontinued Start: 07-29-2017 End: 05-08-2021 take 1 tablet by mouth once daily amLODIPine (NORVASC) 5 mg tablet Indications: Essential hypertension Take 1 tablet by mouth once daily. 30 tablet 5 07/06/2020 05/08/2021 Discontinued Comment on above: TAKE 1 TABLET BY SUKUMAR TH EVERY DAY Take 1 tablet by sukumar th once daily. aspirin 81 mg chewable tablet (20 sources) Platelet Aggregation Inhibitor, Nonsteroidal Anti-inflammatory Drug Start: take 1 tablet by mouth once daily aspirin 81 mg oral tablet, chewable Dose : 81 mg =, Chewed, qDay, # 90 tab(s), 3 Refill(s), Pharmacy: [facility]/pharmacy #[id number], Stented coronary artery CAD in [place] artery, 162.5, cm, 10/23/24 13:20:00 EST, Height, kg, 10/23/24 13:20:00 EST, Dosing Weight Start Date: 10/23/24 Status: Ordered Medication Dispense Status: Completed Quantity: 90.0 Unit: tab(s) Total Allowed Fills: 4 Fills Dispensed: 0 Indications: Presence of coronary angioplasty implant and graft; Atherosclerotic heart disease of [place] coronary artery without angina pectoris; Start: 05-02-2022 aspirin Dose : 81 mg =, Chewed, qDay, 0 Refill(s) Start Date: 05/02/22 Status: Ordered Start: 08-23-2020 End: 12-23-2023 take 1 tablet by mouth once daily aspirin 81 mg chewable tablet Take 1 tablet by mouth once daily. 90 tablet 3 12/04/2021 06/10/2023 Discontinued Comment on above: Take 1 tablet by sukumar th once daily. atorvastatin 80 mg oral tablet (20 sources) HMG-CoA Reductase Inhibitor Start: 12-25-2021 End: 11-26-2022 atorvastatin 80 mg oral tablet Dose : 80 mg = 1 tab(s), Oral, qDay, # 30 tab(s), 0 Refill(s) Start Date: 05/02/22 Status: Ordered Start: 07-06-2020 End: 02-14-2021 take 1 tablet by mouth once daily atorvastatin (LIPITOR) 20 mg tablet Take 1 tablet by mouth once daily. 30 tablet 5 07/06/2020 02/14/2021 Discontinued Comment on above: TAKE 1 TABLET BY SUKUMAR TH EVERY DAY Take 1 tablet by sukumar th once daily. BMX (1 source) Start: 07-12-2025 End: 07-22-2025 take 1 dose by mouth four times daily BMX BMX, 1 dose, Oral, QID, # 60 mL, 0 Refill(s), other reason (Rx), 37.7 Start Date: 07/12/25 Stop Date: 07/22/25 Status: Ordered Medication Dispense Status: Completed Quantity: 60.0 Unit: mL Total Allowed Fills: 1 Fills Dispensed: 0 busPIRone hydrochloride 5 mg oral tablet (5 sources) Start: 07-12-2025 End: 08-11-2025 busPIRone 5 mg oral tablet Dose : 10 mg = 2 tab(s), Oral, TID, # 180 tab(s), 0 Refill(s), other reason (Rx) Start Date: 07/12/25 Stop Date: 08/11/25 Status: Ordered Medication Dispense Status: Completed Quantity: 180.0 Unit: tab(s) Total Allowed Fills: 1 Fills Dispensed: 0 Start: 03-05-2025 End: 04-04-2025 busPIRone 5 mg oral tablet D ose : 5 mg = 1 tab(s), Oral, TID, # 90 tab(s), 0 Refill(s), Pharmacy: [facility]/pharmacy #[id number], 165.1, cm, 03/04/25 7:59:00 EDT, Height, kg, 03/04/25 7:59:00 EDT, Dosing Weight Start Date: 03/05/25 Stop Date: 04/04/25 Status: Ordered Medication Dispense Status: Completed Quantity: 90.0 Unit: tab(s) Total Allowed Fills: 1 Fills Dispensed: 0 caffeine 200 mg oral tablet (3 sources) Central Nervous System Stimulant, Methylxanthine Start: 05-16-2025 caffeine 200 mg oral tablet Dose : 200 mg = 1 tab(s), Oral, q4h, plus green tea extract 220mg, 0 Refill(s) Start Date: 05/16/25 Status: Ordered Medication Dispense Status: Completed Total Allowed Fills: 1 Fills Dispensed: 0 cefdinir 300 mg oral capsule (1 source) Cephalosporin Antibacterial Start: 05-05-2022 End: 05-08-2022 cefdinir 300 mg oral capsule Dose : 300 mg = 1 cap(s), Oral, q12h, X 3 day(s), # 6 cap(s), 0 Refill(s), 05/08/22 11:02:00 EDT, [id number], 165.1, cm, 05/02/22 9:53:00 EDT, Height, 60 Start Date: 05/05/22 Stop Date: 05/08/22 Status: Ordered clopidogrel 75 mg oral tablet (20 sources) P2Y12 Platelet Inhibitor Start: 10-23-2024 clopi dogrel 75 mg oral tablet Dose : 75 mg = 1 tab(s), Oral, Daily, # 90 tab(s), 3 Refill(s), Pharmacy: [facility]/pharmacy #[id number], 162.5, cm, 10/23/24 13:20:00 EST, Height, kg, 10/23/24 13:20:00 EST, Dosing Weight Start Date: 10/23/24 Status: Ordered Medication Dispense Status: Completed Quantity: 90.0 Unit: tab(s) Total Allowed Fills: 4 Fills Dispensed: 0 Start: 11-18-2019 End: 05-08-2023 take 1 tablet by mouth once daily clopidogrel (PLAVIX) 75 mg tablet Indications: PAD (peripheral artery disease) (HCC) Take 1 tablet by mouth once daily. 90 tablet 3 01/05/2021 05/08/2023 Discontinued (Discontinued by Patient) Comment on above: Take 1 tablet by [facility] once daily. doxycycline hyclate 100 mg oral capsule (1 source) Tetracycline-class Drug Start: End: doxycycline hyclate 100 mg oral capsule Dose : 100 mg = 1 cap(s), Oral, q12h, X 7 day(s), # 14 cap(s), 0 Refill(s), 11/02/22 19:44:00 EST, Acute exacerbation of COPD, 60 Start Date: 10/26/22 Stop Date: 11/02/22 Status: Ordered empagliflozin 10 mg oral tablet (2 sources) Sodium-Glucose Cotransporter 2 Inhibitor Start: Jardiance 10 mg oral tablet Dose : 10 mg = 1 tab(s), Oral, qAM, # 30 tab(s), 0 Refill(s), Pharmacy: [facility], 165.1, cm, 06/12/25 19:25:00 EDT, Height, kg, 06/12/25 19:25:00 EDT, Dosing Weight Start Date: 06/15/25 Status: Ordered Medication Dispense Status: Completed Quantity: 30.0 Unit: tab(s) Total Allowed Fills: 1 Fills Dispensed: 0 ePHEDrine sulfate 25 mg oral tablet (2 sources) alpha-Adrenergic Agonist, beta-Adrenergic Agonist, Norepinephrine Releasing Agent Start: 025 Bronkaid Max 25 mg oral tablet Dose : 25 mg = 1 tab(s), Oral, q4h, not to exceed 6 tablets/day, # 12 tab(s), 0 Refill(s), 52.9 Start Date: 05/16/25 Status: Ordered Quantity: 12.0 Unit: tab(s) Repeat number: 1 fluticasone-umeclidin -vilanter (TRELEGY ELLIPTA) 200-62.5-25 mcg inhalation powder (20 sources) Start: take 1 puff(s) by inhalation once daily fluticasone-umeclid in-vilanter (TRELEGY ELLIPTA) 200-62.5-25 mcg inhalation powder Inhale 1 Puff as instructed once daily. 60 Each 11/26/2022 Active Start: 11-26-2022 End: 12-26-2022 take 1 puff(s) by inhalation once daily kouxjcqitvu-wfjzgpxnv-czmpbvvb (TRELEGY ELLIPTA) 200-62.5-25 mcg inhalation powder Inhale 1 Puff as instructed once daily. 60 Each 11/26/2022 12/26/2022 Active Start: 07-23-2022 End: 11-26-2022 take 1 puff(s) by inhalation once daily tksisvtrymn-zmasttjnh-unyjpguh (TRELEGY ELLIPTA) 200-62.5-25 mcg inhalation powder Inhale 1 Puff as instructed once daily. 60 Each 07/23/2022 11/26/2022 Discontinued Start: 07-23-2022 take 1 puff(s) by inhalation once daily taxpfmvrnum-comxwrirc-bdjkfxpa (TRELEGY ELLIPTA) 200-62.5-25 mcg inhalation powder Inhale 1 Puff as instructed once daily. 60 Each 07/23/2022 Active Start: 07-23-2022 End: 08-22-2022 take 1 puff(s) by inhalation once daily brgjadoedgv-qjixrbydv-syfalqjm (TRELEGY ELLIPTA) 200-62.5-25 mcg inhalation powder Inhale 1 Puff as instructed once daily. 60 Each 07/23/2022 08/22/2022 Active Start: 06-06-2022 End: 07-20-2022 take 1 puff(s) by inhalation once daily nrbdfqwmwua-gngzpffen-idvbnvmr (TRELEGY ELLIPTA) 200-62.5-25 mcg inhalation powder Inhale 1 Puff as instructed once daily. 60 Each 06/06/2022 07/20/2022 Discontinued Start: 06-06-2022 take 1 puff(s) by inhalation once daily tlkxeivdjdk-wvpoqzyif-tdifidfn (TRELEGY ELLIPTA) 200-62.5-25 mcg inhalation powder Inhale 1 Puff as instructed once daily. 60 Each 06/06/2022 Active Start: 06-06-2022 End: 07-06-2022 take 1 puff(s) by inhalation once daily ajmxbhrxjig-uzmmitnaa-fqonbosy (TRELEGY ELLIPTA) 200-62.5-25 mcg inhalation powder Inhale 1 Puff as instructed once daily. 60 Each 06/06/2022 07/06/2022 Active Comment on above: Inhale 1 Puff as ins tructed once daily. furosemide 40 mg oral tablet (4 sources) Loop Diuretic Start: 06-15-2025 Lasix 40 mg oral tablet Dose : 40 mg = 1 tab(s), Oral, qDay, # 30 tab(s), 0 Refill(s), Pharmacy: [facility], 165.1, cm, 06/12/25 19:25:00 EDT, Height, kg, 06/12/25 19:25:00 EDT, Dosing Weight Start Date: 06/15/25 Status: Ordered Medication Dispense Status: Completed Quantity: 30.0 Unit: tab(s) Total Allowed Fills: 1 Fills Dispensed: 0 Start: 05-24-2025 Lasix 40 mg or al tablet Dose : 40 mg = 1 tab(s), Oral, qDay, 0 Refill(s) Start Date: 05/24/25 Status: Ordered Repeat number: 1 Inhalational Spacing Device (AEROCHAMBER MV) (1 source) Start: 06-04-2022 End: 06-04-2022 Inhalational Spacing Device (AEROCHAMBER MV) 1 Device one time only for 1 dose. 1 Each 0 06/04/2022 06/04/2022 Active Comment on above: 1 Device one time on ly for 1 dose. levoFLOXacin 500 mg oral tablet (1 source) Quinolone Antimicrobial Start: 01-07-2023 take 500 mg by mouth once daily Levofloxacin Active 500 MG PO DAILY January 07, 2023 12:00am LORazepam 0.5 mg oral tablet (8 sources) Benzodiazepine Start: 12-23-2022 End: 12-26-2022 Ativan 0.5 mg oral tablet Dose : 0.5 mg = 1 tab(s), Oral, q8h, PRN as needed for anxiety, X 3 day(s), # 9 tab(s), 0 Refill(s), 12/26/22 16:04:00 EST, Anxiety reaction Acute exacerbation of COPD, 60 Start Date: 12/23/22 Stop Date: 12/26/22 Status: Ordered Start: 08-31-2022 End: 11-29-2022 take 1 tablet by mouth every eight hours as needed for anxiety and anxiety LORazepam (ATIVAN) 1 mg tablet Indications: Situational anxiety Take 1 tablet by mouth every 8 hours as needed for anxiety for up to 90 days. 15 tablet 0 08/31/2022 11/29/2022 Active Comment on above: Take 1 tablet by sukumar every 8 hours as needed for anxiety for up to 90 days. methylPREDNISolone 125 mg injection (1 source) Corticosteroid Start: 01-07-20 methylPREDNISolone sodium (SOLU-MEDROL) injection 125 mg Nebulizer (Compressor) (5 sources) Start: 01-22-20 Nebulizer (Compressor) See Instructions, Nebulizer machine and supplies, # 1 EA, 0 Refill(s), COPD with chronic bronchitis, 162.5, cm, 01/21/25 13:39:00 EDT, Height, 51.7, kg, 01/21/25 13:39:00 EDT, Dosing Weight Start Date: 01/21/25 Status: Ordered Medication Dispense Status: Completed Quantity: 1.0 Unit: EA Total Allowed Fills: 1 Fills Dispensed: 0 Indications: Other specified chronic obstructive pulmonary disease; Start: 01-21-2025 Nebulizer (Com pressor) See Instructions, Nebulizer machine and supplies, # 1 EA, 0 Refill(s), COPD with chronic bronchitis, 162.5, cm, 01/21/25 13:39:00 EDT, Height, 51.7, kg, 01/21/25 13:39:00 EDT, Dosing Weight Start Date: 01/21/25 Status: Ordered Quantity: 1.0 Unit: EA Repeat number: 1 Indications: Other specified chronic obstructive pulmonary disease; 24 hr nicotine 0.875 mg/hr transdermal system (15 sources) Cholinergic Nicotinic Agonist Start: 07-12-2025 End: 08-23-2025 apply 21 mg transdermal route once daily NicoDerm CQ 21 mg/24 hr transdermal patch 21 mg Dose = 1 patch(es), Transdermal, Daily, # 42 patch(es), 0 Refill(s) Start Date: 07/12/25 Stop Date: 08/23/25 Status: Ordered Medication Dispense Status: Completed Quantity: 42.0 Unit: patch(es) Total Allowed Fills: 1 Fills Dispensed: 0 Start: 10-19-2021 End: 05-11-2022 apply 1 dose transdermal route every twenty-four hours nicotine (NICODERM) 21 mg/24 hr Indications: Quit smoking Apply 1 Patch as directed every 24 hours. 28 Patch 1 10/19/2021 05/11/2022 Discontinued Start: 10-19-2021 End: 05-11-2022 Nicotine Polacrilex 2 mg raissa enge Indications: Quit smoking Place 1 Lozenge between cheek and gum as needed. 168 Lozenge 2 10/19/2021 05/11/2022 Discontinued Comment on above: Apply 1 Patch as dir ected every [address] 1 Lozenge betw een cheek and gum as needed. omeprazole 40 mg delayed release oral capsule (20 sources) Proton Pump Inhibitor Start: 10-23-2024 omeprazole 40 mg oral delayed release capsule Dose : 40 mg = 1 cap(s), Oral, qDay, # 90 cap(s), 3 Refill(s), Pharmacy: [facility]/pharmacy #[id number], GERD (gastroesophageal reflux disease), 162.5, cm, 10/23/24 13:20:00 EST, Height, kg, 10/23/24 13:20:00 EST, Dosing Weight Start Date: 10/23/24 Status: Ordered Quantity: 90.0 Unit: cap(s) Repeat number: 4 Indications: Gastro-esophageal reflux disease without esophagitis; Start: 02-01-2017 End: 12-23-2023 take 1 capsule by mouth once daily omeprazole (PRILOSEC) 40 mg capsule Indications: Gastroesophageal reflux disease, esophagitis presence not specified Take 1 capsule by mouth once daily. 30 capsule 5 07/06/2020 03/06/2021 Discontinued take 2 capsules by m outh twice daily omeprazole (PRILOSEC) 20 MG delayed release capsule Take 40 mg by mouth 2 times daily 0 Active Comment on above: Take 1 capsule by mo uth once daily. pantoprazole 20 mg delayed release oral tablet (4 sources) Proton Pump Inhibitor Start: 5 Protonix 20 mg oral enteric coated tablet Dose : 40 mg = 2 tab(s), Oral, qDayAC, 0 Refill(s) Start Date: 05/24/25 Status: Ordered Medication Dispense Status: Completed Total Allowed Fills: 1 Fills Dispensed: 0 PARoxetine hydrochloride 30 mg oral tablet (3 sources) Serotonin Reuptake Inhibitor Start: 7 take 1 tablet by mouth once daily Paroxetine Hcl (Paxil) 30 mg tablet Active 30 MG PO DAILY January 31, 2017 11:00pm take 1 tablet by sukumar th once daily in the morning PARoxetine (PAXIL) 40 MG tablet Take 40 mg by mouth every morning 0 Active predniSONE 10 mg oral tablet (13 sources) Start: 03-06-2025 End: 03-14-2025 prednisone 10mg tab (TAPER) Taper 06-55-17-58-26-83-10-5 mg x 1 day until gone, Oral, qAM, # 18 tab(s), 0 Refill(s), Pharmacy: [facility]/pharmacy #[id number], 165.1, cm, 03/04/25 7:59:00 EDT, Height, kg, 03/04/25 7:59:00 EDT, Dosing Weight Start Date: 03/06/25 Stop Date: 03/14/25 Status: Ordered Quantity: 18.0 Unit: tab(s) Repeat number: 1 Start: 01-07-2023 take 20 mg by mouth once daily Prednisone Active 20 MG PO DAILY January 07, 2023 12:00am take starting on 01/08/23 for 5 days Start: 12-24-2022 End: 12-30-2022 predniSONE 50 mg oral tablet Dose : 50 mg = 1 tab(s), Oral, qDayM, # 5 tab(s), 0 Refill(s), 12/30/22 0:00:00 EST, Anxiety reaction Acute exacerbation of COPD Start Date: 12/24/22 Stop Date: 12/30/22 Status: Ordered Start: 11-26-2022 End: 05-08-2023 predniSONE (DELTASONE) 10 mg tablet TAKE TWO DAILY FOR 5 DAYS THEN ONE DAILY FOR 10 DAYS 20 tablet 0 02/27/2023 05/08/2023 Discontinued (Course of therapy completed) Start: 10-26-2022 End: 11-02-2022 predniSONE 20 mg oral tablet Dose : 40 mg = 2 tab(s), Oral, qDayM, X 7 day(s), # 14 tab(s), 0 Refill(s), 11/02/22 19:45:00 EST, Acute exacerbation of COPD Start Date: 10/26/22 Stop Date: 11/02/22 Status: Ordered Start: 05-05-2022 End: 05-08-2022 predniSONE 20 mg oral tablet Dose : 40 mg = 2 tab(s), Oral, qDayM, X 3 day(s), # 6 tab(s), 0 Refill(s), 05/08/22 11:01:00 EDT, Pharmacy: [facility]/pharmacy #[id number], 165.1, cm, 05/02/22 9:53:00 EDT, Height Start Date: 05/05/22 Stop Date: 05/08/22 Status: Ordered Comment on above: Take two daily for 5 days then one daily for 10 days QUEtiapine 25 mg oral tablet (2 sources) Atypical Antipsychotic Start: 06-15-2025 Seroquel 25 mg oral tablet Dose : 25 mg = 1 tab(s), Oral, qHS, # 30 tab(s), 0 Refill(s), Pharmacy: [facility]/pharmacy #[id number], 165.1, cm, 06/12/25 19:25:00 EDT, Height, kg, 06/12/25 19:25:00 EDT, Dosing Weight Start Date: 06/15/25 Status: Ordered Medication Dispense Status: Completed Quantity: 30.0 Unit: tab(s) Total Allowed Fills: 1 Fills Dispensed: 0 rosuvastatin calcium 20 mg oral tablet (16 sources) HMG-CoA Reductase Inhibitor Start: 11-30-2024 Crestor 20 mg oral tablet Dose : 20 mg = 1 tab(s), Oral, qDay, # 30 tab(s), 11 Refill(s), Pharmacy: [facility]/pharmacy #[id number], 165, cm, 11/30/24 9:43:00 EST, Height, kg, 11/30/24 9:43:00 EST, Dosing Weight Start Date: 11/30/24 Status: Ordered Medication Dispense Status: Completed Quantity: 30.0 Unit: tab(s) Total Allowed Fills: 12 Fills Dispensed: 0 Start: 05-13-2023 End: 09-25-2023 take 1 tablet by mouth once daily at bedtime rosuvastatin (CRESTOR) 5 mg tablet Take 1 tablet by mouth daily at bedtime. 90 tablet 0 09/25/2023 Active Comment on above: Take 1 tablet by sukumar th daily at bedtime. sacubitril 24 mg / valsartan 26 mg oral tablet (5 sources) Angiotensin 2 Receptor Janki Start: 06-15-2025 take 1 tablet by mouth twice daily Entresto 24 mg-26 mg oral tablet Dose = 1 tab(s), Oral, BID, # 180 tab(s), 3 Refill(s), Pharmacy: [facility], 165.1, cm, 06/12/25 19:25:00 EDT, Height, kg, 06/12/25 19:25:00 EDT, Dosing Weight Start Date: 06/15/25 Status: Ordered Medication Dispense Status: Completed Quantity: 180.0 Unit: tab(s) Total Allowed Fills: 4 Fills Dispensed: 0 Start: 01-29-2025 take 1 tablet by sukumar th twice daily Entresto 24 mg-26 mg oral tablet Dose = 1 tab(s), Oral, BID, # 180 tab(s), 3 Refill(s), Pharmacy: [facility]/pharmacy #[id number], 162.5, cm, 01/21/25 13:39:00 EDT, Height, kg, 01/21/25 13:39:00 EDT, Dosing Weight Start Date: 01/29/25 Status: Ordered Quantity: 180.0 Unit: tab(s) Repeat number: 4 Symbicort 160 mcg-4.5 mcg/inh Inhaler (3 sources) Start: 05-05-2022 take 1 dose by inhalation twice daily Symbicort 160 mcg-4.5 mcg/inh Inhaler Dose = 2 puff(s), Inhalation, BID, # 10.2 gram(s), 0 Refill(s), Pharmacy: [facility]/pharmacy #[id number], 165.1, cm, 05/02/22 9:53:00 EDT, Height Start Date: 05/05/22 Status: Ordered traZODone hydrochloride 100 mg oral tablet (20 sources) Serotonin Reuptake Inhibitor Start: 10-23-2024 traZODone 100 mg oral tablet Dose : 100 mg = 1 tab(s), Oral, qHS, # 90 tab(s), 3 Refill(s), Pharmacy: [facility]/pharmacy #[id number], Psychophysiologic insomnia, 162.5, cm, 10/23/24 13:20:00 EST, Height, kg, 10/23/24 13:20:00 EST, Dosing Weight Start Date: 10/23/24 Status: Ordered Medication Dispense Status: Completed Quantity: 90.0 Unit: tab(s) Total Allowed Fills: 4 Fills Dispensed: 0 Indications: Psychophysiologic insomnia; Start: 07-23-2022 End: 03-23-2024 take 2 tablets by mouth once daily at bedtime traZODone (DESYREL) 100 mg tablet Indications: Recurrent major depression in partial remission (HCC) Take 2 tablets by mouth daily at bedtime. 60 tablet 5 12/14/2022 06/10/2023 Discontinued Start: 11-21-2021 End: 07-20-2022 take 2 tablets by mouth once daily at bedtime traZODone (DESYREL) 100 mg tablet Indications: Recurrent major depression in partial remission (HCC) Take 2 tablets by mouth daily at bedtime. 60 tablet 0 06/15/2022 07/20/2022 Discontinued Start: 01-05-2021 End: 05-31-2021 take 2 tablets by mouth once daily at bedtime traZODone (DESYREL) 100 mg tablet Indications: Recurrent major depression in partial remission (HCC) Take 2 tablets by mouth daily at bedtime. 60 tablet 5 01/05/2021 05/31/2021 Discontinued Start: 02-01-2017 traZODone 100 mg oral tablet Dose : 100 mg = 1 tab(s), Oral, qHS Start Date: 06/14/21 Status: Ordered Start: 02-01-2017 take 200 mg by mouth at bedtim e Trazodone Active 200 MG PO AT BEDTIME January 31, 2017 11:00pm Comment on above: Take 2 tablets by mo uth daily at bedtime. Trelegy Ellipta 200 mcg-62.5 mcg-25 mcg/inh inhalation powder (6 sources) Start: take 1 dose by inhalation once daily Trelegy Ellipta 200 mcg-62.5 mcg-25 mcg/inh inhalation powder Dose = 1 puff(s), Inhalation, qDay, at the same time every day, # 60 EA, 5 Refill(s), Pharmacy: [facility]/pharmacy #[id number], 162.5, cm, 01/21/25 13:39:00 EDT, Height, kg, 01/21/25 13:39:00 EDT, Dosing Weight Start Date: 01/21/25 Status: Ordered Medication Dispense Status: Completed Quantity: 60.0 Unit: EA Total Allowed Fills: 6 Fills Dispensed: 0 Start: 01-21-2025 take 1 dose by inhal ation once daily Trelegy Ellipta 200 mcg-62.5 mcg-25 mcg/inh inhalation powder Dose = 1 puff(s), Inhalation, qDay, at the same time every day, # 60 EA, 5 Refill(s), Pharmacy: [facility]/pharmacy #[id number], 162.5, cm, 01/21/25 13:39:00 EDT, Height, kg, 01/21/25 13:39:00 EDT, Dosing Weight Start Date: 01/21/25 Status: Ordered Quantity: 60.0 Unit: EA Repeat number: 6 Start: 12-23-2022 take 1 dose by inhal ation once daily Trelegy Ellipta 200 mcg-62.5 mcg-25 mcg/inh inhalation powder Dose = 1 puff(s), Inhalation, qDay, at the same time every day, 0 Refill(s) Start Date: 12/23/22 Status: Ordered Completed/Discontinued Medications Medication Drug Class(es) Dates Sig (Normalized) Sig (Original) acetaminophen 500 mg oral tablet (11 sources) Start: 09-05-2022 End: 05-08-2023 take 1 tablet by mouth every eight hours as needed for pain acetaminophen (TYLENOL EXTRA STRENGTH) 500 mg tablet Indications: Thrush (oral) Take 1 tablet by mouth every 8 hours as needed for pain. 30 tablet 0 09/05/2022 05/08/2023 Discontinued Comment on above: Take 1 tablet by sukumar th every 8 hours as needed for pain. 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 Patient has a fractured elbow and due to cardiac reasons cannot have surgery at this time, and will require greater than 30 MEDD to treat chronic pain (ICD-10 code G89.18). 15 tablet 0 10/10/2021 05/11/2022 Discontinued Comment on above: Take 1 tablet by sukumar th every 8 hours as needed. Patient has a fractured elbow and due to cardiac reasons cannot have surgery at this time, and will require greater than 30 MEDD to treat chronic pain (ICD-10 code G89.18). albuterol 0.833 mg/ml / ipratropium bromide 0.167 mg/ml inhalation solution (1 source) Anticholinergic, beta2-Adrenergic Agonist Start: 01-07-2023 End: 01-07-2023 ipratropium-albuter ol (DUONEB) nebulizer solution 1 ampule Budesonide / formoterol (17 sources) Corticosteroid, beta2-Adrenergic Agonist Start: 07-23-2022 End: 08-31-2022 take 2 puff(s) by inhalation twice daily budesonide-formoter ol (SYMBICORT) 160-4.5 mcg/actuation inhaler Inhale 2 Puffs as instructed twice daily. 1 Each 0 07/23/2022 08/31/2022 Discontinued (Discontinued by another Health Care Provider) Start: 07-23-2022 take 2 puff(s) by in halation twice daily budesonide-formoterol (SYMBICORT) 160-4.5 mcg/actuation inhaler Inhale 2 Puffs as instructed twice daily. 1 Each 0 07/23/2022 Active Start: 05-25-2022 End: 06-06-2022 take 2 puff(s) by inhalation twice daily budesonide-formoterol (SYMBICORT) 160-4.5 mcg/actuation inhaler Inhale 2 Puffs as instructed twice daily. 1 Each 0 05/25/2022 06/06/2022 Discontinued Start: 05-25-2022 take 2 puff(s) by in halation twice daily budesonide-formoterol (SYMBICORT) 160-4.5 mcg/actuation inhaler Inhale 2 Puffs as instructed twice daily. 1 Each 0 05/25/2022 Active Start: 05-05-2022 End: 05-25-2022 take 2 puff(s) by inhalation twice daily SYMBICORT 160-4.5 mcg/actuation inhaler Inhale 2 Puffs as instructed twice daily. 0 05/05/2022 05/25/2022 Discontinued Comment on above: Inhale 2 Puffs as in structed twice daily. carvedilol 6.25 mg oral tablet (20 sources) alpha-Adrenergic Janki, beta-Adrenergic Janki Start: 12-26-19 End: 12-24-19 24 take 1 tablet by mouth twice daily carvedilol (COREG) 6.25 mg tablet Take 1 tablet by mouth twice daily. 180 tablet 1 08/31/2022 09/25/2023 Discontinued (Duplicate Entry) Comment on above: TAKE 1 TABLET BY SUKUMAR TH TWICE A DAY Take 1 tablet by sukumar th twice daily. Take 1 tablet by sukumar th two times a day. hydrOXYzine pamoate 25 mg oral capsule (11 sources) Antihistamine Start: 12-27-19 End: 05-11-20 take 1 capsule by mouth every eight hours as needed for anxiety and anxiety hydrOXYzine pamoate (VISTARIL) 25 mg capsule Indications: Anxiety Take 1 capsule by mouth three times daily as needed for Anxiety. 90 capsule 12/27/2020 05/11/2022 Discontinued Start: 07-29-2017 take 1 capsule by [facility] three times daily as needed Hydroxyzine Pamoate (Vistaril) 50 mg capsule Active 50 MG PO 3 TIMES DAILY NEEDED July 28, 2017 11:00pm Comment on above: Take 1 capsule by [facility] three times daily as needed for Anxiety. 24 hr isosorbide mononitrate 30 mg extended release oral tablet (20 sources) Nitrate Vasodilator Start: 3 End: 4 take 1 tablet by mouth once daily isosorbide mononitrate ER (IMDUR) 30 mg 24 hr tablet TAKE 1 TABLET BY MOUTH EVERY DAY 90 tablet 3 02/27/2023 09/25/2023 Discontinued Start: 01-03-2023 take 30 mg by mouth once daily Isosorbide Mononitrate Active 30 MG PO DAILY January 03, 2023 12:00am Start: 01-01-2022 isosorbide mon onitrate 30 mg oral tablet, extended release Dose : 30 mg = 1 tab(s), Oral, qAM, # 30 tab(s), 0 Refill(s) Start Date: 05/02/22 Status: Ordered Comment on above: TAKE 1 TABLET BY SUKUMAR TH EVERY DAY Take 1 tablet by sukumar th once daily. lisinopril 40 mg oral tablet (20 sources) Angiotensin Converting Enzyme Inhibitor Start: 7 End: 4 take 1 tablet by mouth once daily lisinopril (ZESTRIL, PRINIVIL) 40 mg tablet Indications: Essential hypertension Take 1 tablet by mouth once daily. 30 tablet 5 07/06/2020 07/24/2021 Discontinued Comment on above: Take 1 tablet by sukumar th once daily. loratadine 10 mg oral tablet (9 sources) Start: 0 End: 2 take 1 tablet by mouth once daily loratadine (CLARITIN) 10 mg tablet Indications: Seasonal allergies Take 1 tablet by mouth once daily. 30 tablet 5 05/31/2021 05/11/2022 Discontinued Comment on above: Take 1 tablet by sukumar th once daily. 50 ml magnesium sulfate 40 mg/ml injection (1 source) Start: 3 End: 3 magnesium sulfate 2000 mg in 50 mL IVPB premix 24 hr metoprolol succinate 50 mg extended release oral tablet (19 sources) beta-Adrenergic Janki Start: 5 End: 5 take 1 tablet by mouth in the morning metoprolol succinate 50 mg oral TABLET extended release Start: 07/12/25 8:00:00 AM EDT, Dose = 50 mg, = 1 tab(s), Oral, 07/09/25 12:22:00 EDT Start Date: 07/12/25 Stop Date: 07/12/25 Status: Completed Medication Dispense Status: Completed Total Allowed Fills: 1 Fills Dispensed: 0 Start: 06-13-2025 End: 06-15-2025 metoprolol succinate 50 mg o ral TABLET extended release Dose : 50 mg = 1 tab(s), Oral, qDay, Do not crush or chew (controlled release), # 30 tab(s), 11 Refill(s), Pharmacy: [facility], 165.1, cm, 06/12/25 19:25:00 EDT, Height, kg, 06/12/25 19:25:00 EDT, Dosing Weight Start Date: 06/15/25 Status: Ordered Medication Dispense Status: Completed Quantity: 30.0 Unit: tab(s) Total Allowed Fills: 12 Fills Dispensed: 0 Start: 11-30-2024 End: 03-06-2025 metoprolol succinate 50 mg o ral TABLET extended release Dose : 50 mg = 1 tab(s), Oral, qDay, Do not crush or chew (controlled release), # 30 tab(s), 11 Refill(s), Pharmacy: [facility]/pharmacy #[id number], 165, cm, 11/30/24 9:43:00 EST, Height, kg, 11/30/24 9:43:00 EST, Dosing Weight Start Date: 11/30/24 Status: Ordered Quantity: 30.0 Unit: tab(s) Repeat number: 12 Start: 02-01-2017 End: 09-27-2021 take 1 tablet by mouth twice daily metoprolol tartrate, short acting, (LOPRESSOR) 25 mg tablet Indications: Essential hypertension Take 1 tablet by mouth twice daily. 60 tablet 5 07/06/2020 09/27/2021 Discontinued nystatin [id number] unt/ml oral suspension (11 sources) Polyene Antifungal Start: 09-05-2022 End: 05-08-2023 nystatin (MYCOSTATIN) 100,000 unit/mL suspension Indications: Thrush (oral) Take 5 mL by mouth four times daily. 1tsp swish in mouth for several minutes, then swallow (or expectorate) 4 times daily until gone. 200 mL 0 09/05/2022 05/08/2023 Discontinued (Course of therapy completed) Comment on above: Take 5 mL by mouth f our times daily. 1tsp swish in mouth for several minutes, then swallow (or expectorate) 4 times daily until gone. olopatadine 2 mg/ml ophthalmic solution (13 sources) Histamine-1 Receptor Inhibitor Start: 08-31-2022 End: 05-08-2023 take 1 drop(s) into the eye(s) once daily Olopatadine (PATADAY ONCE DAILY RELIEF) 0.2 % drop Use 1 Drop in both eyes once daily. 5 mL 2 08/31/2022 05/08/2023 Discontinued (Course of therapy completed) Comment on above: Use 1 Drop in both e yes once daily. perflutren lipid microspheres 1.3 mL in NaCl (PF) 0.9% 10 mL injection (DEFINITY) (20 sources) Start: 04-30-2022 End: 09-05-2022 perflutren lipid microspheres 1.3 mL in NaCl (PF) 0.9% 10 mL injection (DEFINITY) Start: 04-30-2022 End: 07-30-2023 perflutren lipid microsphere s 1.3 mL in NaCl (PF) 0.9% 10 mL injection (DEFINITY) Start: 05-08-2021 End: 05-11-2022 perflutren lipid microsphere s 1.3 mL in NaCl (PF) 0.9% 10 mL injection (DEFINITY) Start: 05-08-2021 End: 08-07-2022 perflutren lipid microsphere s 1.3 mL in NaCl (PF) 0.9% 10 mL injection (DEFINITY) 125 ml sodium chloride 9 mg/ml prefilled syringe (20 sources) Start: 05-08-2021 End: 07-30-2023 sodium chloride 0.9 % (flush) 10 mL (BD POSIFLUSH) triamcinolone acetonide 1 mg/ml topical cream (13 sources) Corticosteroid Start: 08-31-2022 End: 05-08-2023 triamcinolone acetonide (KENALOG) 0.1 % cream Apply 1 application to affected area three times daily. Apply sparingly to area for rash/itching. 15 g 1 08/31/2022 05/08/2023 Discontinued (Course of therapy completed) Comment on above: Apply 1 application to affected area three times daily. Apply sparingly to area for rash/itching. 24 hr venlafaxine 75 mg extended release oral capsule (20 sources) Serotonin and Norepinephrine Reuptake Inhibitor Start: 08-31-2022 End: 09-25-2023 take 1 capsule by mouth once daily venlafaxine ER (EFFEXOR XR) 75 mg 24 hr capsule Take 1 capsule by mouth once daily. Take with 150 mg capsule to =150 mg 90 capsule 1 08/31/2022 09/25/2023 Discontinued (Non-Compliance) Start: 05-02-2022 venlafaxine 15 0 mg oral capsule, extended release Dose : 150 mg = 1 cap(s), Oral, qDay, # 30 cap(s), 0 Refill(s) Start Date: 05/02/22 Status: Ordered Start: 01-05-2021 End: 09-25-2023 take 1 capsule by mouth once daily venlafaxine ER (EFFEXOR XR) 150 mg 24 hr capsule Indications: Recurrent major depression in partial remission (HCC) Take 1 capsule by mouth once daily. Take with 75 mg capsule to =225 mg 90 capsule 1 08/31/2022 09/25/2023 Discontinued (Non-Compliance) Comment on above: Take 1 capsule by mo ut once daily. Take 1 capsule by mo ut once daily. Take with 75 mg capsule to =225 mg Take 1 capsule by mo uth once daily. Take with 150 mg capsule to =150 mg Problems Active Problems Problem Classification Problem Date Documented Da te Episodic/Chronic Abdominal pain (5 sources) Left upper quadrant pain 01-21-2025 Episodic Adjustment disorders (2 sources) Adjustment disorder; Translations: [Adjustment disorder, unspecified] Onset: 5 Chronic Alcohol-related disorders (20 sources) History of alcohol abuse; Translations: [Alcohol abuse, in remission] Onset: 6 07-07-2020 Chronic Alcohol-related disorders (4 sources) Alcohol intoxication; Translations: [Alcohol use, unspecified with intoxication, unspecified] 01-02-2023 Episodic Anxiety disorders (20 sources) Mixed anxiety and depressive disorder; Translations: [Anxiety disorder, unspecified] Onset: 6 Resolved: 1 10-06-2019 Chronic Asthma (20 sources) Asthma; Translations: [Unspecified asthma, uncomplicated] Onset: 0 Resolved: 0 05-04-2016 Chronic Cardiac dysrhythmias (2 sources) Tachyarrhythmia ; Translations: [Tachycardia, unspecified] Onset: 5 Episodic Chronic kidney disease (2 sources) Chronic kidney disease; Translations: [Chronic kidney disease, unspecified] Onset: 5 Chronic Chronic obstructive pulmonary disease and bronchiectasis (20 sources) Chronic bronchitis; Translations: [Unspecified chronic bronchitis] Onset: 6 07-26-2016 Chronic Chronic obstructive pulmonary disease and bronchiectasis (3 sources) Chronic obstructive pulmonary disease and bronchiectasis; Translations: [Other specified chronic obstructive pulmonary disease] Onset: 4 Congestive heart failure; nonhypertensive (6 sources) Heart failure; Translations: [Heart failure, unspecified] Onset: 5 Chronic Coronary atherosclerosis and other heart disease (20 sources) Coronary atherosclerosis; Translations: [Atherosclerotic heart disease of [place] coronary artery without angina pectoris] Onset: 1 09-27-2021 Chronic Coronary atherosclerosis and other heart disease (14 sources) Stented coronary artery; Translations: [Presence of coronary angioplasty implant and graft] Onset: 4 10-23-2024 Episodic Diabetes mellitus without complication (20 sources) Prediabetes; Translations: [Prediabetes] Onset: 1 02-04-2021 Episodic Disorders of lipid metabolism (20 sources) Mixed hyperlipidemia; Translations: [Mixed hyperlipidemia] Onset: 1 08-26-2021 Chronic E Codes: Fall (2 sources) Fall; Translations: [Unspecified fall, initial encounter] Onset: 5 Episodic Esophageal disorders (20 sources) Gastroesophageal reflux disease; Translations: [Gastro-esophageal reflux disease without esophagitis] Onset: 9 03-13-2019 Chronic Essential hypertension (20 sources) Essential hypertension; Translations: [Essential (primary) hypertension] Onset: 6 08-26-2021 Chronic Gastroduodenal ulcer (except hemorrhage) (13 sources) Gastric ulcer 04-03-2014 Chronic Gastrointestinal hemorrhage (13 sources) Gastrointestinal hemorrhage 04-03-2014 Episodic Heart valve disorders (2 sources) Rheumatic disease of mitral AND aortic valves; Translations: [Rheumatic disorders of both mitral and aortic valves] Onset: 5 Chronic Hypertension with complications and secondary hypertension (3 sources) 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; Translations: [Hypertensive heart and chronic kidney disease with heart failure and stage 1 through stage 4 chronic kidney disease, or unspecified chronic kidney disease] Onset: 5 Chronic Immunizations and screening for infectious disease (2 sources) Vaccination needed; Translations: [Encounter for immunization] Episodic Inflammation; infection of eye (except that caused by tuberculosis or sexually transmitteddisease) (1 source) Allergic conjunctivitis of bilateral eyes; Translations: [Acute atopic conjunctivitis, bilateral] Episodic Malaise and fatigue (3 sources) Asthenia; Translations: [Weakness] Onset: 5 Episodic Miscellaneous mental health disorders (16 sources) Psychophysiologic insomnia; Translations: [Psychophysiologic insomnia] Onset: 5 10-23-2024 Chronic Mood disorders (20 sources) Recurrent major depression in partial remission; Translations: [Major depressive disorder, recurrent, in partial remission] Onset: 6 Chronic Mycoses (1 source) Candidiasis of mouth; Translations: [Candidal stomatitis] Episodic Occlusion or stenosis of precerebral arteries (20 sources) Carotid artery stenosis; Translations: [Occlusion and stenosis of unspecified carotid artery] Onset: 1 05-08-2021 Chronic Other diseases of kidney and ureters (9 sources) Renal mass 10-23-2024 Chronic Other ear and sense organ disorders (1 source) Lesion of left ear; Translations: [Unspecified disorder of left ear] Episodic Other lower respiratory disease (6 sources) Wheezing; Translations: [Wheezing] Episodic Other lower respiratory disease (2 sources) Dyspnea; Translations: [Shortness of breath] Episodic Other lower respiratory disease (2 sources) Multiple nodules of lung; Translations: [Other nonspecific abnormal finding of lung field] Episodic Other lower respiratory disease (20 sources) Nodule of lung; Translations: [Solitary pulmonary nodule] Onset: 2 Episodic Other lower respiratory disease (2 sources) Hemoptysis; Translations: [Hemoptysis] Episodic Other nervous system disorders (1 source) Other chronic pain; Translations: [Chronic midline low back pain with sciatica, sciatica laterality unspecified] Onset: 3 Chronic Other skin disorders (1 source) Eruption; Translations: [Rash and other nonspecific skin eruption] 01-05-2023 Episodic Other skin disorders (1 source) Rash and other nonspecific skin eruption; Translations: [Rash and other nonspecific skin eruption] 01-07-2023 Episodic Other upper respiratory disease (20 sources) Seasonal allergy; Translations: [Other seasonal allergic rhinitis] Onset: 9 05-04-2019 Chronic Pancreatic disorders (not diabetes) (13 sources) Pancreatitis 12-04-2015 Episodic Vian[facility]-; endo-; and myocarditis; cardiomyopathy (except that caused by tuberculosis or sexually transmitted disease) (9 sources) Cardiomyopathy; Translations: [Cardiomyopathy, unspecified] Onset: 5 Chronic Peripheral and visceral atherosclerosis (20 sources) Peripheral vascular disease, unspecified; Translations: [Peripheral vascular disease, unspecified] Onset: 9 10-23-2019 Chronic Residual codes; unclassified (1 source) Menopause present; Translations: [Asymptomatic menopausal state] Episodic Residual codes; unclassified (2 sources) Tobacco user; Translations: [Tobacco use] Onset: 5 05-28-2023 Episodic Residual codes; unclassified (1 source) Pain; Translations: [Pain, unspecified] 01-27-2021 Episodic Residual codes; unclassified (1 source) Noncompliance with treatment; Translations: [Patient's noncompliance with other medical treatment and regimen due to unspecified reason] Onset: 5 Episodic Residual codes; unclassified (1 source) Tobacco use; Translations: [Tobacco use] Onset: 5 Episodic Respiratory failure; insufficiency; arrest (adult) (8 sources) Chronic respiratory failure; Translations: [Chronic respiratory failure, unspecified whether with hypoxia or hypercapnia] Onset: 5 Chronic Sprains and strains (2 sources) Strain of muscle and/or tendon of lower leg; Translations: [Strain of unspecified muscle(s) and tendon(s) at lower leg level, right leg, initial encounter] Onset: 5 Episodic Substance-related disorders (20 sources) Smoker; Translations: [Nicotine dependence, unspecified, uncomplicated] Onset: 9 10-23-2019 Chronic Suicide and intentional self-inflicted injury (2 sources) Suicidal thoughts; Translations: [Suicidal ideations] Onset: 5 Episodic Unclassified (5 sources) Ethyl alcohol (substance) 11-28-2013 Unclassified (4 sources) Readiness finding; Translations: [Desire for detoxification] 01-02-2023 Unclassified (9 sources) Patient encounter status 10-23-2024 Unclassified (8 sources) Peripheral arterial disease 11-30-2024 Unclassified (2 sources) Patient's noncompliance with other medical treatment and regimen due to unspecified reason; Translations: [Patient's noncompliance with other medical treatment and regimen due to unspecified reason] Onset: 5 Unclassified (1 source) Alcohol use, unspecified, uncomplicated; Translations: [Alcohol use, unspecified, uncomplicated] Onset: 5 Unclassified (1 source) Encounter for screening for COVID-19; Translations: [Encounter for screening for COVID-19] Onset: 5 Unclassified (1 source) Unspecified intracranial injury with loss of consciousness status unknown, initial encounter; Translations: [Unspecified intracranial injury with loss of consciousness status unknown, initial encounter] Onset: 4 Past or Other Problems Problem Classification Problem Date Documented Date Episodic/Chronic Fluid and electrolyte disorders (6 sources) Dehydration; Translations: [Dehydration] Onset: 07-27-2016 Resolved: 11-27-2018 Episodic Fracture of upper limb (1 source) Unspecified fracture of lower end of right humerus, subsequent encounter for fracture with delayed healing; Translations: [Closed fracture of right elbow with delayed healing, subsequent encounter] Onset: 10-10-2021 Episodic Hepatitis (14 sources) Viral hepatitis C; Translations: [Unspecified viral hepatitis C without hepatic coma] Onset: 03-04-2025 05-29-2014 Episodic Intracranial injury (10 sources) Traumatic brain injury; Translations: [Personal history of traumatic brain injury] Onset: 03-04-2025 10-23-2024 Episodic Nonspecific chest pain (20 sources) Chest pain; Translations: [Chest pain, unspecified] Onset: 09-28-2019 Resolved: 07-07-2020 05-08-2021 Episodic Osteoarthritis (4 sources) Osteoarthritis of right hip joint; Translations: [Unilateral primary osteoarthritis, right hip] Onset: 03-13-2019 Resolved: 10-06-2019 10-06-2019 Chronic Other aftercare (1 source) Other group home (current) drug therapy; Translations: [Other [facility] (current) drug therapy] Onset: 03-04-2025 Episodic Other aftercare (1 source) Encounter for therapeutic drug level monitoring; Translations: [Encounter for therapeutic drug level monitoring] Onset: 03-04-2025 Episodic Other aftercare (1 source) press tender (current) use of antithrombotics/antip latelets; Translations: [MCFP (current) use of antithrombotics/antip latelets] Onset: 03-04-2025 Episodic Other aftercare (1 source) MCFP (current) use of aspirin; Translations: [MCFP (current) use of aspirin] Onset: 03-04-2025 Episodic Other aftercare (1 source) MCFP (current) use of inhaled steroids; Translations: [press tender (current) use of inhaled steroids] Onset: 03-04-2025 Episodic Other connective tissue disease (4 sources) History of total replacement of right hip joint; Translations: [Presence of right artificial hip joint] Onset: 03-25-2019 Resolved: 07-07-2020 07-07-2020 Chronic Other hematologic conditions (4 sources) Erythrocytosis; Translations: [Secondary polycythemia] Onset: 07-27-2016 Resolved: 11-27-2018 11-07-2021 Episodic Other lower respiratory disease (20 sources) Dyspnea on exertion; Translations: [Dyspnea, unspecified] Onset: 08-26-2021 08-26-2021 Episodic Other lower respiratory disease (1 source) Shortness of breath; Translations: [Shortness of breath] Onset: 08-14-2021 Episodic Other lower respiratory disease (1 source) Hemoptysis; Translations: [Hemoptysis] Onset: 01-01-2023 Episodic Other lower respiratory disease (1 source) Solitary pulmonary nodule; Translations: [Solitary pulmonary nodule] Onset: 03-04-2025 Episodic Other nutritional; endocrine; and metabolic disorders (4 sources) Hypomagnesemia; Translations: [Hypomagnesemia] Onset: 10-22-2019 Resolved: 10-23-2019 10-23-2019 Chronic Other screening for suspected conditions (not mental disorders or infectious disease) (20 sources) Cardiovascular stress test abnormal; Translations: [Abnormal result of other cardiovascular function study] Onset: 08-26-2021 08-26-2021 Episodic Pneumonia (except that caused by tuberculosis or sexually transmitted disease) (4 sources) Pneumococcal pneumonia; Translations: [Pneumonia due to Streptococcus pneumoniae] Onset: 02-19-2025 01-06-2023 Episodic Residual codes; unclassified (20 sources) H/O: respiratory disease; Translations: [Personal history of other specified conditions] Onset: 11-20-2022 11-20-2022 Episodic Residual codes; unclassified (1 source) Do not resuscitate; Translations: [Do not resuscitate] Onset: 03-04-2025 Episodic Residual codes; unclassified (1 source) Family history of ischemic heart disease and other diseases of the circulatory system; Translations: [Family history of ischemic heart disease and other diseases of the circulatory system] Onset: 03-04-2025 Episodic Respiratory failure; insufficiency; arrest (adult) (3 sources) Acute respiratory failure; Translations: [Acute respiratory failure with hypoxia] Onset: 02-19-2025 Episodic Screening and history of mental health and substance abuse codes (1 source) Personal history of nicotine dependence; Translations: [Personal history of nicotine dependence] Onset: 02-19-2025 Episodic Spondylosis; intervertebral disc disorders; other back problems (20 sources) Spinal stenosis of lumbar region; Translations: [Spinal stenosis, lumbar region without neurogenic claudication] Onset: 12-01-2018 12-01-2018 Episodic Unclassified (1 source) Unspecified intracranial injury with loss of consciousness status unknown, initial encounter; Translations: [Unspecified intracranial injury with loss of consciousness status unknown, initial encounter] Onset: 10-23-2024 Results Test Name Value Interpretation Reference Range Facility CBC-Complete Blood Cnt No Di ffon 07-13-2025 Erythrocyte distribution width (RBC) [Ratio] 17.0 % High 11.6-14.6 [facility] Comment on above: Order Comment: 108 Performed By: #### L 501.9310, L500.4050, L100.0500, L500.4100, L501.9985, L501.9520 #### [facility] [address], [address] Hematocrit (Bld) [Volume fraction] 36.2 % Low 37-47 [facility] Comment on above: Order Comment: 108 Performed By: #### L 501.9310, L500.4050, L100.0500, L500.4100, L501.9985, L501.9520 #### [facility] [address] [place], [address] Hemoglobin (Bld) [Mass/Vol] 11.5 g/dL Low 12.0-15.0 [facility] Comment on above: Order Comment: 108 Performed By: #### L 501.9310, L500.4050, L100.0500, L500.4100, L501.9985, L501.9520 #### [facility] [address] [place], [address] MCH (RBC) [Entitic mass] 29.3 pg Normal 27.0-32.0 [facility] Comment on above: Order Comment: 108 Performed By: #### L 501.9310, L500.4050, L100.0500, L500.4100, L501.9985, [id number] #### [facility] [address] [place], [address] MCHC (RBC) [Mass/Vol] 31.8 g/dL Low 32-36 [facility] Comment on above: Order Comment: 108 Performed By: #### L 501.9310, L500.4050, L100.0500, L500.4100, L501.9985, L501.9520 #### [facility] [address] [place], [address] MCV (RBC) [Entitic vol] 92.3 fL Normal 81-99 [facility] Comment on above: Order Comment: 108 Performed By: #### L 501.9310, L500.4050, L100.0500, L500.4100, L501.9985, L501.9520 #### [facility] [address] [place], [address] Platelet mean volume (Bld) [Entitic vol] 10.8 fL Normal 6.2-12.0 [facility] Comment on above: Order Comment: 108 Performed By: #### L 501.9310, L500.4050, L100.0500, L500.4100, L501.9985, L501.9520 #### [facility] [address] [place], [address] Platelets (Bld) [#/Vol] 385 10*3/uL Normal 150-450 [facility] Comment on above: Order Comment: 108 Performed By: #### L 501.9310, L500.4050, L100.0500, L500.4100, L501.9985, L501.9520 #### [facility] [address] [place], [address] RBC (Bld) [#/Vol] 3.92 10*6/uL Low 4.2-5.4 [facility] Comment on above: Order Comment: 108 Performed By: #### L 501.9310, L500.4050, L100.0500, L500.4100, L501.9985, L501.9520 #### [facility] [address] [place], [address] RDW SD 57.4 fl High 35.1-43.9 [facility] Comment on above: Order Comment: 108 Performed By: #### L 501.9310, L500.4050, L100.0500, L500.4100, L501.9985, L501.9520 #### [facility] [address], [address] WBC (Bld) [#/Vol] 6.5 10*3/uL Normal 4.4-11.0 [facility] Comment on above: Order Comment: 108 Performed By: #### L 501.9310, L500.4050, L100.0500, L500.4100, L501.9985, L501.9520 #### [facility] [address] [place], [address] Comprehensive Metabolic Prof ilon 07-13-2025 Albumin [Mass/Vol] 3.5 g/dL Normal 3.4-4.8 [facility] Comment on above: Order Comment: 108 Performed By: #### L 501.9310, L500.4050, L100.0500, L500.4100, L501.9985, L501.9520 #### [facility] [address], [address] Albumin/Globulin [Mass ratio] 1.2 {ratio} Normal 0.9-2.4 [facility] Comment on above: Order Comment: 108 Performed By: #### L 501.9310, L500.4050, L100.0500, L500.4100, L501.9985, L501.9520 #### [facility] [address] [place], [address] ALK PHOS 62 U/L Normal 35-104 [facility] Comment on above: Order Comment: 108 Performed By: #### L 501.9310, L500.4050, L100.0500, L500.4100, L501.9985, L501.9520 #### [facility] [address] [place], [address] ALT [Catalytic activity/Vol] U/L Normal <=34 [facility] Comment on above: Order Comment: 108 Performed By: #### L 501.9310, L500.4050, L100.0500, L500.4100, L501.9985, L501.9520 #### [facility] [address] [place], [address] AST [Catalytic activity/Vol] 17 U/L Normal <=31 [facility] Comment on above: Order Comment: 108 Performed By: #### L 501.9310, L500.4050, L100.0500, L500.4100, L501.9985, L501.9520 #### [facility] [address] [place], [address] Bilirubin [Mass/Vol] 0.17 mg/dL Normal 0.00-1.30 [facility] Comment on above: Order Comment: 108 Performed By: #### L 501.9310, L500.4050, L100.0500, L500.4100, L501.9985, L501.9520 #### [facility] [address] [place], [address] BUN/CRE 31.1 RATIO High 10-20 [facility] Comment on above: Order Comment: 108 Performed By: #### L 501.9310, L500.4050, L100.0500, L500.4100, L501.9985, L501.9520 #### [facility] [address] [place], [address] Calcium [Mass/Vol] 9.1 mg/dL Normal 7.6-11.0 [facility] Comment on above: Order Comment: 108 Performed By: #### L 501.9310, L500.4050, L100.0500, L500.4100, L501.9985, L501.9520 #### [facility] [address] [place], [address] Chloride [Moles/Vol] 103 mmol/L Normal 98-108 [facility] Comment on above: Order Comment: 108 Performed By: #### L 501.9310, L500.4050, L100.0500, L500.4100, L501.9985, L501.9520 #### [facility] [address] [place], [address] CO2 [Moles/Vol] 25.7 mmol/L Normal 21.0-32.0 [facility] Comment on above: Order Comment: 108 Performed By: #### L 501.9310, L500.4050, L100.0500, L500.4100, L501.9985, L501.9520 #### [facility] [address] [place], [address] Creatinine [Mass/Vol] 0.85 mg/dL Normal 0.70-1.20 [facility] Comment on above: Order Comment: 108 Performed By: #### L 501.9310, L500.4050, L100.0500, L500.4100, L501.9985, L501.9520 #### [facility] [address] [place], [address] GAP 9 Normal 5-15 [facility] Comment on above: Order Comment: 108 Performed By: #### L 501.9310, L500.4050, L100.0500, L500.4100, L501.9985, L501.9520 #### [facility] [address] [place], [address] GFR/1.73 sq M.predicted among non-blacks MDRD (S/P/Bld) [Vol rate/Area] 74 mL/min/{1.73_m2} Normal >60 [facility] Comment on above: Order Comment: 108 Result Comment: mL/m in/1.73m2 CKD-EPI Creatinine Equation (2020) Performed By: #### L 501.9310, L500.4050, L100.0500, L500.4100, L501.9985, L501.9520 #### [facility] [address] [place], [address] Globulin (S) [Mass/Vol] 3.0 g/dL Normal 2.2-4.2 [facility] Comment on above: Order Comment: 108 Performed By: #### L 501.9310, L500.4050, L100.0500, L500.4100, L501.9985, L501.9520 #### [facility] [address] [place], [address] Glucose [Mass/Vol] 98 mg/dL Normal 70-99 [facility] Comment on above: Order Comment: 108 Performed By: #### L 501.9310, L500.4050, L100.0500, L500.4100, L501.9985, L501.9520 #### [facility] [address] [place], [address] Potassium [Moles/Vol] 4.5 mmol/L Normal 3.3-5.1 [facility] Comment on above: Order Comment: 108 Performed By: #### L 501.9310, L500.4050, L100.0500, L500.4100, L501.9985, L501.9520 #### [facility] [address] [place], [address] Sodium [Moles/Vol] 138 mmol/L Normal 133-145 [facility] Comment on above: Order Comment: 108 Performed By: #### L 501.9310, L500.4050, L100.0500, L500.4100, L501.9985, L501.9520 #### [facility] [address] [place], [address] T PROT 6.4 g/dL Normal 5.9-8.4 [facility] Comment on above: Order Comment: 108 Performed By: #### L 501.9310, L500.4050, L100.0500, L500.4100, L501.9985, L501.9520 #### [facility] [address] [place], [address] Urea nitrogen [Mass/Vol] 27 mg/dL High 4-19 [facility] Comment on above: Order Comment: 108 Performed By: #### L 501.9310, L500.4050, L100.0500, L500.4100, L501.9985, L501.9520 #### [facility] [address] [place], [address] Hemoglobin A1con 07-13-2025 HbA1c (Bld) [Mass fraction] 5.7 % Normal <=5.6 [facility] Comment on above: Order Comment: 108 Result Comment: Norm al < 5.7 % Prediabetic 5.7 - 6.4 % Diabetic >or= 6.5 % Please note range changes. Performed By: #### L 501.9310, L500.4050, L100.0500, L500.4100, L501.9985, L501.9520 #### [facility] [address] [place], [address] Lipid Profileon 07-13-2025 CHOL:HDL 2.44 Normal [facility] Comment on above: Order Comment: 108 Performed By: #### L 501.9310, L500.4050, L100.0500, L500.4100, L501.9985, L501.9520 #### [facility] [address] [place], [address] Cholesterol [Mass/Vol] 127 mg/dL Normal <=200 [facility] Comment on above: Order Comment: 108 Result Comment: Chol esterol level, Desirable <200 mg/dL Borderline high cholesterol 200-239 mg/dL High cholesterol >=240 mg/dL Recommendations of the NCEP Adult Treatment Panel for the following risk-cutoff thresholds for the [place] population. Performed By: #### L 501.9310, L500.4050, L100.0500, L500.4100, L501.9985, L501.9520 #### [facility] [address] [place], [address] Cholesterol in HDL [Mass/Vol] 52 mg/dL Normal [facility] Comment on above: Order Comment: 108 Result Comment: [place] onal Cholesterol Education Program (NCEP) guidelines: <40 mg/dL: Low HDL-cholesterol (major risk factor for CHD) >= 60 mg/dL: High HDL-cholesterol (negative risk factor for CHD) HDL-cholesterol is affected by a number of factors, e.g. smoking, exercise, hormones, sex and age. Performed By: #### L 501.9310, L500.4050, L100.0500, L500.4100, L501.9985, L501.9520 #### [facility] [address] [place], [address] Cholesterol in LDL [Mass/Vol] 52 mg/dL Normal [facility] Comment on above: Order Comment: 108 Result Comment: Bord bittuq=049-648 mg/dL Higher Fnlh=022 mg/dL or greater Friedwald Equation for LDL-C Performed By: #### L 501.9310, L500.4050, L100.0500, L500.4100, L501.9985, L501.9520 #### [facility] [address] [place], [address] Cholesterol in VLDL [Mass/Vol] 23 mg/dL Normal 5-40 [facility] Comment on above: Order Comment: 108 Performed By: #### L 501.9310, L500.4050, L100.0500, L500.4100, L501.9985, L501.9520 #### [facility] [address] [place], [place], [id number] Triglyceride [Mass/Vol] 113 mg/dL Normal [facility] Comment on above: Order Comment: 108 Result Comment: The drugs N-Acetylcysteine and Metamizole may falsely depress this assay. Normal range: <150 mg/dL Borderline High: 150-199 mg/dL High: 200-499 mg/dL Very High: >500 mg/dL Performed By: #### L 501.9310, L500.4050, L100.0500, L500.4100, L501.9985, L501.9520 #### [facility] [address] [place], [address] T4 Total, Thyroxinon 025 T4 [Mass/Vol] 6.1 ug/dL Normal 4.8-13.9 [facility] Comment on above: Order Comment: 108 Performed By: #### L 501.9310, L500.4050, L100.0500, L500.4100, L501.9985, L501.9520 #### [facility] [address] [place], [place], [id number] Thyroid Stim Hormone (TSH)on 07-13-2025 TSH 3.620 uIU/mL Normal 0.300-4.200 [facility] Comment on above: Order Comment: 108 Performed By: #### L 501.9310, L500.4050, L100.0500, L500.4100, L501.9985, L501.9520 #### [facility] [address] [facility] [place], [place], [id number] .Auto Diffon 07-10-2025 Basophil, Absolute 0.1 10 3/mcL Normal 0.0-0.3 [facility] Comment on above: Performed By: #### A DIFF, PBNP, TROPHS, CBC, GFR, MDW, ANEU, BMP #### [address] [address] Basophils/100 WBC (Bld) 1.1 % Normal 0.0-2.5 [facility] Comment on above: Performed By: #### A DIFF, PBNP, TROPHS, CBC, GFR, MDW, ANEU, BMP #### [address] [address] Eosinophil, Absolute 0.3 10 3/mcL Normal 0.0-0.7 [facility] Comment on above: Performed By: #### A DIFF, PBNP, TROPHS, CBC, GFR, MDW, ANEU, BMP #### [address] [address] Eosinophils/100 WBC (Bld) 3.2 % Normal 0.0-6.0 [facility] Comment on above: Performed By: #### A DIFF, PBNP, TROPHS, CBC, GFR, MDW, ANEU, BMP #### [address] [address] Lymphocyte, Absolute 2.6 10 3/mcL Normal 0.9-4.3 [facility] Comment on above: Performed By: #### A DIFF, PBNP, TROPHS, CBC, GFR, MDW, ANEU, BMP #### [address] [address] Lymphocytes/100 WBC (Bld) 31.2 % Normal 20.0-40.0 [facility] Comment on above: Performed By: #### A DIFF, PBNP, TROPHS, CBC, GFR, MDW, ANEU, BMP #### [address] [address] Monocyte, Absolute 1.2 10 3/mcL Normal 0.1-1.4 [facility] Comment on above: Performed By: #### A DIFF, PBNP, TROPHS, CBC, GFR, MDW, ANEU, BMP #### [address] [address] Monocytes/100 WBC (Bld) 13.9 % High 2.0-13.0 [facility] Comment on above: Performed By: #### A DIFF, PBNP, TROPHS, CBC, GFR, MDW, ANEU, BMP #### [address] [address] Neutrophils/100 WBC (Bld) 50.6 % Normal 50.0-75.0 [facility] Comment on above: Performed By: #### A DIFF, PBNP, TROPHS, CBC, GFR, MDW, ANEU, BMP #### [address] [place], [place] [address] .GFRon 07-10-2025 Estimated Glomerular Filtration Rate 71 ml/min/1.73sqm Normal [facility] Comment on above: Result Comment: Stages of Chronic Kidney Disease (CKD) Stage Description eGFR(ml/min/1.73 sq.m.) CKD 1 Normal kidney function or >=90 normal kindney function with possible kidney damage (ex. Proteinuria) CKD 2 Kidney damage with mild loss 60-89 of kidney function CKD 3a Mild to moderate loss of kidney 45-59 function CKD 3b Moderate to severe loss of 30-44 of kindey function CKD 4 Severe loss of kidney function 15-29 CKD 5 Kidney failure <15 Note: (go live 2024) the eGFR calculation was updated to the 2020 CKD-EPI creatinine equation without a race factor to calculate the eGFR results. Performed By: #### A DIFF, PBNP, TROPHS, CBC, GFR, MDW, ANEU, BMP #### [address] [address] .NEUABSon 07-10-2025 Neutrophil, Absolute 4.2 10 3/mcL Normal 2.3-8.1 [facility] Comment on above: Performed By: #### A DIFF, PBNP, TROPHS, CBC, GFR, MDW, ANEU, BMP #### [address] [place], [place] [address] CBCon 07-10-2025 Erythrocyte distribution width (RBC) [Ratio] 17.7 % High 11.5-15.5 [facility] Comment on above: Performed By: #### A DIFF, PBNP, TROPHS, CBC, GFR, MDW, ANEU, BMP #### [address] [place], [place] [address] Hematocrit (Bld) [Volume fraction] 35.3 % Normal 34.0-46.0 [facility] Comment on above: Performed By: #### A DIFF, PBNP, TROPHS, CBC, GFR, MDW, ANEU, BMP #### [address] [address] Hgb 11.4 G/dL Low 12.0-16.0 [facility] Comment on above: Performed By: #### A DIFF, PBNP, TROPHS, CBC, GFR, MDW, ANEU, BMP #### [place] [address] MCH (RBC) [Entitic mass] 29.5 pg Normal 27.0-33.0 [facility] Comment on above: Performed By: #### A DIFF, PBNP, TROPHS, CBC, GFR, MDW, ANEU, BMP #### [address] [address] MCHC 32.4 G/dL Normal 32.0-36.0 [facility] Comment on above: Performed By: #### A DIFF, PBNP, TROPHS, CBC, GFR, MDW, ANEU, BMP #### [address] [address] MCV (RBC) [Entitic vol] 91.1 fL Normal 80.0-99.0 [facility] Comment on above: Performed By: #### A DIFF, PBNP, TROPHS, CBC, GFR, MDW, ANEU, BMP #### [address] [address] Platelet 383 10 3/mcL Normal 150-450 [facility] Comment on above: Performed By: #### A DIFF, PBNP, TROPHS, CBC, GFR, MDW, ANEU, BMP #### [address] [address] Platelet mean volume (Bld) [Entitic vol] 8.4 fL Normal 6.6-10.5 [facility] Comment on above: Performed By: #### A DIFF, PBNP, TROPHS, CBC, GFR, MDW, ANEU, BMP #### [address] [id number] RBC 3.87 10 6/mcL Low 4.10-5.30 [facility] Comment on above: Performed By: #### A DIFF, PBNP, TROPHS, CBC, GFR, MDW, ANEU, BMP #### [address] [address] WBC 8.3 10 3/mcL Normal 4.5-10.8 [facility] Comment on above: Performed By: #### A DIFF, PBNP, TROPHS, CBC, GFR, MDW, ANEU, BMP #### [address] [address] CMPon 07-10-2025 ALT [Catalytic activity/Vol] 13 U/L Low 14-59 [facility] Comment on above: Performed By: #### A DIFF, PBNP, TROPHS, CBC, GFR, MDW, ANEU, BMP #### [address] [address] Albumin Level 2.7 G/dL Low 3.4-4.8 [facility] Comment on above: Performed By: #### A DIFF, PBNP, TROPHS, CBC, GFR, MDW, ANEU, BMP #### [address] [address] Albumin/Globulin [Mass ratio] 0.8 {ratio} Low 1.1-2.5 [facility] Comment on above: Performed By: #### A DIFF, PBNP, TROPHS, CBC, GFR, MDW, ANEU, BMP #### [address] [address] ALP [Catalytic activity/Vol] 72 U/L Normal 40-135 [facility] Comment on above: Performed By: #### A DIFF, PBNP, TROPHS, CBC, GFR, MDW, ANEU, BMP #### [address] [address] AST [Catalytic activity/Vol] 15 U/L Normal 10-40 [facility] Comment on above: Performed By: #### A DIFF, PBNP, TROPHS, CBC, GFR, MDW, ANEU, BMP #### [address] [address] Bili Total 0.2 mg/dL Normal 0.2-1.0 [facility] Comment on above: Result Comment: Use of this assay is not recommended for patients undergoing treatment with eltrombopag due to the potential for falsely elevated results. Performed By: #### A DIFF, PBNP, TROPHS, CBC, GFR, MDW, ANEU, BMP #### [address] [address] BUN/Creatinine Ratio 26 ratio Normal 7-27 [facility] Comment on above: Performed By: #### A DIFF, PBNP, TROPHS, CBC, GFR, MDW, ANEU, BMP #### [place] [address] Calcium [Mass/Vol] 8.6 mg/dL Normal 8.4-10.2 [facility] Comment on above: Performed By: #### A DIFF, PBNP, TROPHS, CBC, GFR, MDW, ANEU, BMP #### [address] [address] Chloride [Moles/Vol] 107 mmol/L Normal 98-107 [facility] Comment on above: Performed By: #### A DIFF, PBNP, TROPHS, CBC, GFR, MDW, ANEU, BMP #### [address] [address] CO2 [Moles/Vol] 37 mmol/L High 23-31 [facility] Comment on above: Performed By: #### A DIFF, PBNP, TROPHS, CBC, GFR, MDW, ANEU, BMP #### [address] [address] Creatinine [Mass/Vol] 0.88 mg/dL Normal 0.51-0.95 [facility] Comment on above: Performed By: #### A DIFF, PBNP, TROPHS, CBC, GFR, MDW, ANEU, BMP #### [address] [address] Electrolyte Balance 0.0 mEq/L Low 4.0-15.0 [facility] Comment on above: Performed By: #### A DIFF, PBNP, TROPHS, CBC, GFR, MDW, ANEU, BMP #### [address] [address] Globulin 3.4 G/dL Normal 2.7-4.4 [facility] Comment on above: Performed By: #### A DIFF, PBNP, TROPHS, CBC, GFR, MDW, ANEU, BMP #### [address] [address] Glucose [Mass/Vol] 111 mg/dL High 83-110 [facility] Comment on above: Performed By: #### A DIFF, PBNP, TROPHS, CBC, GFR, MDW, ANEU, BMP #### [address] [address] Potassium [Moles/Vol] 4.4 mmol/L Normal 3.5-5.1 [facility] Comment on above: Performed By: #### A DIFF, PBNP, TROPHS, CBC, GFR, MDW, ANEU, BMP #### [address] [address] Sodium [Moles/Vol] 144 mmol/L Normal 136-145 [facility] Comment on above: Performed By: #### A DIFF, PBNP, TROPHS, CBC, GFR, MDW, ANEU, BMP #### [address] [address] Total Protein 6.1 G/dL Low 6.4-8.2 [facility] Comment on above: Performed By: #### A DIFF, PBNP, TROPHS, CBC, GFR, MDW, ANEU, BMP #### [address] [address] Urea nitrogen [Mass/Vol] 23 mg/dL High 7-18 [facility] Comment on above: Performed By: #### A DIFF, PBNP, TROPHS, CBC, GFR, MDW, ANEU, BMP #### [address] [place], [place] [address] LABORATORYOrdered By: SYSTEM SYSTEM on 07-10-2025 Albumin BCP dye [Mass/Vol] 2.7 G/dL Low 3.4 - 4.8 G/dL AO ADM SS Albumin/Globulin [Mass ratio] 0.8 {ratio} Low 1.1 - 2.5 ratio AO ADM SS ALP [Catalytic activity/Vol] 72 U/L Normal 40 - 135 U/L AO ADM SS ALT With P-5'-P [Catalytic activity/Vol] 13 U/L Low 14 - 59 U/L AO ADM SS AST With P-5'-P [Catalytic activity/Vol] 15 U/L Normal 10 - 40 U/L AO ADM SS Basophils (Bld) [#/Vol] 0.1 103/mcL Normal 0.0 - 0.3 10^3/mcL AO Workflow SS Basophils/100 WBC (Bld) 1.1 % Normal 0.0 - 2.5 % AO Workflow SS Bilirubin [Mass/Vol] 0.2 mg/dL Normal 0.2 - 1 .0 mg/dL AO ADM SS Comment on above: Interpretive Data: U se of this assay is not recommended for patients undergoing treatment with eltrombopag due to the potential for falsely elevated results. Calcium [Mass/Vol] 8.6 mg/dL Normal 8.4 - 10. 2 mg/dL AO ADM SS Chloride [Moles/Vol] 107 mmol/L Normal 98 - 10 7 mmol/L AO ADM SS CO2 [Moles/Vol] 37 mmol/L High 23 - 31 mmol/L AO ADM SS Creatinine [Mass/Vol] 0.88 mg/dL Normal 0.51 - 0.95 mg/dL AO ADM SS Electrolyte Balance 0.0 mEq/L Low 4.0 - 15 .0 mEq/L AO ADM SS Eosinophil, Absolute 0.3 103/mcL Normal 0.0 - 0 .7 10^3/mcL AO Workflow SS Eosinophils/100 WBC (Bld) 3.2 % Normal 0.0 - 6.0 % AO Workflow SS Erythrocyte distribution width (RBC) [Ratio] 17.7 % High 11.5 - 15.5 % AO Workflow SS Estimated Glomerular Filtration Rate 71 ml/min/1.73sqm Invalid Interpretation Code AO Chemistry S Comment on above: Interpretive Data: Stages of Chronic Kidney Disease (CKD) Stage Description eGFR(ml/min/1.73 sq.m.) CKD 1 Normal kidney function or >=90 normal kindney function with possible kidney damage (ex. Proteinuria) CKD 2 Kidney damage with mild loss 60-89 of kidney function CKD 3a Mild to moderate loss of kidney 45-59 function CKD 3b Moderate to severe loss of 30-44 of kindey function CKD 4 Severe loss of kidney function 15-29 CKD 5 Kidney failure <15 Note: (go live 2024) the eGFR calculation was updated to the 2020 CKD-EPI creatinine equation without a race factor to calculate the eGFR results. Globulin 3.4 G/dL Normal 2.7 - 4.4 G/dL AO ADM SS Glucose [Mass/Vol] 111 mg/dL High 83 - 110 mg/dL AO ADM SS Hematocrit (Bld) [Volume fraction] 35.3 % Normal 34.0 - 46.0 % AO Workflow SS Hemoglobin (Bld) [Mass/Vol] 11.4 G/dL Low 12.0 - 16.0 G/dL AO Workflow SS Lymphocytes (Bld) [#/Vol] 2.6 103/mcL Normal 0.9 - 4.3 10^3/mcL AO Workflow SS Lymphocytes/100 WBC (Bld) 31.2 % Normal 20.0 - 40.0 % AO Workflow SS Magnesium [Mass/Vol] 2.0 mg/dL Normal 1.8 - 2 .4 mg/dL AO ADM SS MCH (RBC) [Entitic mass] 29.5 pg Normal 27.0 - 33.0 pg AO Workflow SS MCHC 32.4 G/dL Normal 32.0 - 36.0 G/dL AO Workflow SS MCV (RBC) [Entitic vol] 91.1 fL Normal 80.0 - 99.0 fL AO Workflow SS Monocytes (Bld) [#/Vol] 1.2 103/mcL Normal 0.1 - 1.4 10^3/mcL AO Workflow SS Monocytes/100 WBC (Bld) 13.9 % High 2.0 - 13.0 % AO Workflow SS Neutrophils (Bld) [#/Vol] 4.2 103/mcL Normal 2.3 - 8.1 10^3/mcL AO Workflow SS Neutrophils/100 WBC (Bld) 50.6 % Normal 50.0 - 75.0 % AO Workflow SS Platelet mean volume (Bld) [Entitic vol] 8.4 fL Normal 6.6 - 10.5 fL AO Workflow SS Platelets (Bld) [#/Vol] 383 103/mcL Normal 150 - 450 10^3/mcL AO Workflow SS Potassium [Moles/Vol] 4.4 mmol/L Normal 3.5 - 5.1 mmol/L AO ADM SS Protein [Mass/Vol] 6.1 G/dL Low 6.4 - 8.2 G/dL AO ADM SS RBC (Bld) [#/Vol] 3.87 106/mcL Low 4.10 - 5.3 0 10^6/mcL AO Workflow SS Sodium [Moles/Vol] 144 mmol/L Normal 136 - 145 mmol/L AO ADM SS Urea nitrogen [Mass/Vol] 23 mg/dL High 7 - 18 mg/dL AO ADM SS Urea nitrogen/Creatinine [Mass ratio] 26 ratio Normal 7 - 27 ratio AO ADM SS WBC (Bld) [#/Vol] 8.3 103/mcL Normal 4.5 - 10.8 10^3/mcL AO Workflow SS MGon 07-10-2025 Magnesium [Mass/Vol] 2.0 mg/dL Normal 1.8-2.4 [facility] Comment on above: Performed By: #### A DIFF, PBNP, TROPHS, CBC, GFR, MDW, ANEU, BMP #### [address] [address] .Auto Diffon 07-09-2025 Basophil, Absolute 0.1 10 3/mcL Normal 0.0-0.3 [facility] Comment on above: Performed By: #### M RSAPCR #### [address] [address] #### CVFLURV #### [address] [address] Basophils/100 WBC (Bld) 0.9 % Normal 0.0-2.5 A [facility] Comment on above: Performed By: #### M RSAPCR #### [address] [address] #### CVFLURV #### [address] [address] Eosinophil, Absolute 0.1 10 3/mcL Normal 0.0-0.7 [facility] Comment on above: Performed By: #### M RSAPCR #### [place] [address] #### CVFLURV #### [address] [address] Eosinophils/100 WBC (Bld) 1.3 % Normal 0.0-6.0 [facility] Comment on above: Performed By: #### M RSAPCR #### [place] [address] #### CVFLURV #### [address] [address] Lymphocyte, Absolute 1.3 10 3/mcL Normal 0.9-4.3 [facility] Comment on above: Performed By: #### M RSAPCR #### [place] [address] #### CVFLURV #### [address] [address] Lymphocytes/100 WBC (Bld) 12.9 % Low 20.0-40.0 [facility] Comment on above: Performed By: #### M RSAPCR #### [place] [address] #### CVFLURV #### [address] [address] Monocyte, Absolute 1.1 10 3/mcL Normal 0.1-1.4 [facility] Comment on above: Performed By: #### M RSAPCR #### [place] [address] #### CVFLURV #### [address] [address] Monocytes/100 WBC (Bld) 11.1 % Normal 2.0-13.0 [facility] Comment on above: Performed By: #### M RSAPCR #### [place] [address] #### CVFLURV #### [address] [address] Neutrophils/100 WBC (Bld) 73.8 % Normal 50.0-75.0 [facility] Comment on above: Performed By: #### M RSAPCR #### [place] [address] #### CVFLURV #### [address] [address] .GFRon 07-09-2025 Estimated Glomerular Filtration Rate 93 ml/min/1.73sqm Normal [facility] Comment on above: Result Comment: Stages of Chronic Kidney Disease (CKD) Stage Description eGFR(ml/min/1.73 sq.m.) CKD 1 Normal kidney function or >=90 normal kindney function with possible kidney damage (ex. Proteinuria) CKD 2 Kidney damage with mild loss 60-89 of kidney function CKD 3a Mild to moderate loss of kidney 45-59 function CKD 3b Moderate to severe loss of 30-44 of kindey function CKD 4 Severe loss of kidney function 15-29 CKD 5 Kidney failure <15 Note: (go live 2024) the eGFR calculation was updated to the 2020 CKD-EPI creatinine equation without a race factor to calculate the eGFR results. Performed By: #### M RSAPCR #### [place] [address] #### CVFLURV #### [address] [address] .MDWon 07-09-2025 Monocyte Distribution Width 17.29 Normal 0.00-20.00 [facility] Comment on above: Result Comment: For ED adult patients suspected of sepsis, MDW<=20.0 does not rule out sepsis or risk of sepsis Performed By: #### M RSAPCR #### [place] [address] #### CVFLURV #### [address] [address] .NEUABSon 07-09-2025 Neutrophil, Absolute 7.3 10 3/mcL Normal 2.3-8.1 [facility] Comment on above: Performed By: #### M RSAPCR #### [place] [address] #### CVFLURV #### [address] [address] BMPon 07-09-2025 BUN/Creatinine Ratio 26 ratio Normal 7-27 [facility] Comment on above: Performed By: #### M RSAPCR #### [place] [address] #### CVFLURV #### [address] [address] Calcium [Mass/Vol] 8.7 mg/dL Normal 8.4-10.2 [facility] Comment on above: Performed By: #### M RSAPCR #### [place] [address] #### CVFLURV #### [place] [address] Chloride [Moles/Vol] 106 mmol/L Normal 98-107 [facility] Comment on above: Performed By: #### M RSAPCR #### [place] [address] #### CVFLURV #### [address] [address] CO2 [Moles/Vol] 33 mmol/L High 23-31 [facility] Comment on above: Performed By: #### M RSAPCR #### [place] [address] #### CVFLURV #### [address] [address] Creatinine [Mass/Vol] 0.70 mg/dL Normal 0.51-0.95 [facility] Comment on above: Performed By: #### M RSAPCR #### [place] [address] #### CVFLURV #### [address] [address] Electrolyte Balance 1.0 mEq/L Low 4.0-15.0 [facility] Comment on above: Performed By: #### M RSAPCR #### [place] [address] #### CVFLURV #### [address] [address] Glucose [Mass/Vol] 118 mg/dL High 83-110 [facility] Comment on above: Performed By: #### M RSAPCR #### [place] [address] #### CVFLURV #### [address] [address] Potassium [Moles/Vol] 3.8 mmol/L Normal 3.5-5.1 [facility] Comment on above: Performed By: #### M RSAPCR #### [place] [address] #### CVFLURV #### [address] [address] Sodium [Moles/Vol] 140 mmol/L Normal 136-145 [facility] Comment on above: Performed By: #### M RSAPCR #### [place] [address] #### CVFLURV #### [address] [address] Urea nitrogen [Mass/Vol] 18 mg/dL Normal 7-18 [facility] Comment on above: Performed By: #### M RSAPCR #### [place] [address] #### CVFLURV #### [address] [address] CBCon 07-09-2025 Erythrocyte distribution width (RBC) [Ratio] 17.8 % High 11.5-15.5 [facility] Comment on above: Performed By: #### M RSAPCR #### [place] [address] #### CVFLURV #### [address] [address] Hematocrit (Bld) [Volume fraction] 36.6 % Normal 34.0-46.0 [facility] Comment on above: Performed By: #### M RSAPCR #### [place] [address] #### CVFLURV #### [address] [address] Hgb 11.9 G/dL Low 12.0-16.0 [facility] Comment on above: Performed By: #### M RSAPCR #### [place] [address] #### CVFLURV #### [address] [address] MCH (RBC) [Entitic mass] 29.5 pg Normal 27.0-33.0 [facility] Comment on above: Performed By: #### M RSAPCR #### [place] [address] #### CVFLURV #### [place] [address] MCHC 32.6 G/dL Normal 32.0-36.0 [facility] Comment on above: Performed By: #### M RSAPCR #### [place] [address] #### CVFLURV #### [address] [address] MCV (RBC) [Entitic vol] 90.5 fL Normal 80.0-99.0 [facility] Comment on above: Performed By: #### M RSAPCR #### [place] [address] #### CVFLURV #### [address] [address] Platelet 406 10 3/mcL Normal 150-450 [facility] Comment on above: Performed By: #### M RSAPCR #### [place] [address] #### CVFLURV #### [place] [address] Platelet mean volume (Bld) [Entitic vol] 7.7 fL Normal 6.6-10.5 [facility] Comment on above: Performed By: #### M RSAPCR #### [place] [address] #### CVFLURV #### [place] [address] RBC 4.04 10 6/mcL Low 4.10-5.30 [facility] Comment on above: Performed By: #### M RSAPCR #### [place] [address] #### CVFLURV #### [place] [address] WBC 9.9 10 3/mcL Normal 4.5-10.8 [facility] Comment on above: Performed By: #### M RSAPCR #### [place] [address] #### CVFLURV #### [place] [address] CVFLURVon 07-09-2025 FLU A PCR Negative Normal Negative [facility] Comment on above: Performed By: #### C VFLURV #### [place] [address] FLU B PCR Negative Normal Negative [facility] Comment on above: Performed By: #### C VFLURV #### [place] [address] RSV PCR Negative Normal Negative [facility] Comment on above: Performed By: #### C VFLURV #### [place] [address] SARS-CoV-2 (COVID-19) RNA IVANA+probe Ql (Unsp spec) Negative Normal Negative [facility] Comment on above: Result Comment: Resu lts from the Xpert Xpress CoV-2/Flu/RSV plus test should be correlated with the clinical history, epidemiological data, and other data available to the clinical evaluating the patient. Performance of the Xpert Xpress CoV-2/Flu/RSV plus test has only been established in nasopharyngeal swab specimen. Erroneous test results might occur from improper specimen collection, failure to follow the recommended sample collection, handling and storage procedures, technical error, or sample mix-up. False negative results may occur if a virus is present at a level below the analytical limit of detection. Viral nucleic acid may persist in vivo, independent of virus viability. Detection of analyte target(s) does not imply that the corresponding virus(es) are infectious or are the causative agents for clinical symptoms. Recent patient exposure to FluMist or other live attenuated influenza vaccines may cause inaccurate positive results. Performed By: #### C VFLURV #### [place] [address] LABORATORYOrdered By: SYSTEM SYSTEM on 07-09-2025 Basophils (Bld) [#/Vol] 0.1 103/mcL Normal 0.0 - 0.3 10^3/mcL AO Workflow SS Basophils/100 WBC (Bld) 0.9 % Normal 0.0 - 2.5 % AO Workflow SS Calcium [Mass/Vol] 8.7 mg/dL Normal 8.4 - 10. 2 mg/dL AO ADM SS Chloride [Moles/Vol] 106 mmol/L Normal 98 - 10 7 mmol/L AO ADM SS CO2 [Moles/Vol] 33 mmol/L High 23 - 31 mmol/L AO ADM SS Creatinine [Mass/Vol] 0.70 mg/dL Normal 0.51 - 0.95 mg/dL AO ADM SS Electrolyte Balance 1.0 mEq/L Low 4.0 - 15 .0 mEq/L AO ADM SS Eosinophil, Absolute 0.1 103/mcL Normal 0.0 - 0 .7 10^3/mcL AO Workflow SS Eosinophils/100 WBC (Bld) 1.3 % Normal 0.0 - 6.0 % AO Workflow SS Erythrocyte distribution width (RBC) [Ratio] 17.8 % High 11.5 - 15.5 % AO Workflow SS Estimated Glomerular Filtration Rate 93 ml/min/1.73sqm Invalid Interpretation Code AO Chemistry S Comment on above: Interpretive Data: Stages of Chronic Kidney Disease (CKD) Stage Description eGFR(ml/min/1.73 sq.m.) CKD 1 Normal kidney function or >=90 normal kindney function with possible kidney damage (ex. Proteinuria) CKD 2 Kidney damage with mild loss 60-89 of kidney function CKD 3a Mild to moderate loss of kidney 45-59 function CKD 3b Moderate to severe loss of 30-44 of kindey function CKD 4 Severe loss of kidney function 15-29 CKD 5 Kidney failure <15 Note: (go live 2024) the eGFR calculation was updated to the 2020 CKD-EPI creatinine equation without a race factor to calculate the eGFR results. Glucose [Mass/Vol] 118 mg/dL High 83 - 110 mg/dL AO ADM SS Hematocrit (Bld) [Volume fraction] 36.6 % Normal 34.0 - 46.0 % AO Workflow SS Hemoglobin (Bld) [Mass/Vol] 11.9 G/dL Low 12.0 - 16.0 G/dL AO Workflow SS Lymphocytes (Bld) [#/Vol] 1.3 103/mcL Normal 0.9 - 4.3 10^3/mcL AO Workflow SS Lymphocytes/100 WBC (Bld) 12.9 % Low 20.0 - 40.0 % AO Workflow SS MCH (RBC) [Entitic mass] 29.5 pg Normal 27.0 - 33.0 pg AO Workflow SS MCHC 32.6 G/dL Normal 32.0 - 36.0 G/dL AO Workflow SS MCV (RBC) [Entitic vol] 90.5 fL Normal 80.0 - 99.0 fL AO Workflow SS Monocyte distribution width Auto (Bld) [Entitic vol] 17.29 1 Normal 0.00 - 20.00 AO Workflow SS Comment on above: Result Comment: For ED adult patients suspected of sepsis, MDW<=20.0 does not rule out sepsis or risk of sepsis Monocytes (Bld) [#/Vol] 1.1 103/mcL Normal 0.1 - 1.4 10^3/mcL AO Workflow SS Monocytes/100 WBC (Bld) 11.1 % Normal 2.0 - 13.0 % AO Workflow SS Neutrophils (Bld) [#/Vol] 7.3 103/mcL Normal 2.3 - 8.1 10^3/mcL AO Workflow SS Neutrophils/100 WBC (Bld) 73.8 % Normal 50.0 - 75.0 % AO Workflow SS Platelet mean volume (Bld) [Entitic vol] 7.7 fL Normal 6.6 - 10.5 fL AO Workflow SS Platelets (Bld) [#/Vol] 406 103/mcL Normal 150 - 450 10^3/mcL AO Workflow SS Potassium [Moles/Vol] 3.8 mmol/L Normal 3.5 - 5.1 mmol/L AO ADM SS RBC (Bld) [#/Vol] 4.04 106/mcL Low 4.10 - 5.3 0 10^6/mcL AO Workflow SS Sodium [Moles/Vol] 140 mmol/L Normal 136 - 145 mmol/L AO ADM SS Troponin I.cardiac DL <= 0.01 ng/mL [Mass/Vol] 18 ng/L Normal 0 - 51 ng/L AO ADM SS Comment on above: Interpretive Data: H igh Sensitive Troponin I Reference Ranges: Female: 0-51 ng/L Male: 0-76 ng/L Testing performed on [employer] using a homogeneous sandwich chemiluminescent immunoassay based on [employer] technology. Urea nitrogen [Mass/Vol] 18 mg/dL Normal 7 - 18 mg/dL AO ADM SS Urea nitrogen/Creatinine [Mass ratio] 26 ratio Normal 7 - 27 ratio AO ADM SS WBC (Bld) [#/Vol] 9.9 103/mcL Normal 4.5 - 10.8 10^3/mcL AO Workflow SS LABORATORYOrdered By: Lisa Casas on 07-09-2025 FLUAV RNA IVANA+probe Ql (Resp) Negative (07/09/25 6:56 AM) Normal Negative AO Auto Urine SS FLUBV RNA IVANA+probe Ql (Resp) Negative (07/09/25 6:56 AM) Normal Negative AO Auto Urine SS RSV RNA IVANA+probe Ql (Resp) Negative (07/09/25 6:56 AM) Normal Negative AO Auto Urine SS SARS-CoV-2 (COVID-19) RNA IVANA+probe Ql (Resp) Negative 6 (07/09/25 6:56 AM) Normal Negative AO Auto Urine SS Comment on above: Interpretive Data: R esults from the Xpert Xpress CoV-2/Flu/RSV plus test should be correlated with the clinical history, epidemiological data, and other data available to the clinical evaluating the patient. Performance of the Xpert Xpress CoV-2/Flu/RSV plus test has only been established in nasopharyngeal swab specimen. Erroneous test results might occur from improper specimen collection, failure to follow the recommended sample collection, handling and storage procedures, technical error, or sample mix-up. False negative results may occur if a virus is present at a level below the analytical limit of detection. Viral nucleic acid may persist in vivo, independent of virus viability. Detection of analyte target(s) does not imply that the corresponding virus(es) are infectious or are the causative agents for clinical symptoms. Recent patient exposure to FluMist or other live attenuated influenza vaccines may cause inaccurate positive results. Ra 07-09-2025 High Sensitivity Troponin I 18 ng/L Normal 0-51 [facility] Comment on above: Result Comment: High Sensitive Troponin I Reference Ranges: Female: 0-51 ng/L Male: 0-76 ng/L Testing performed on [employer] using a homogeneous sandwich chemiluminescent immunoassay based on [employer] technology. Performed By: #### M RSAPCR #### [address] [address] #### CVFLURV #### [facility] [address] [place], [place] [address] XR KNEE THREE VIEWS RIGHTon 07-09-2025 XR KNEE THREE VIEWS RIGHT ORIGINAL EXAMINATION: THREE XRAY VIEWS OF THE RIGHT KNEE 07/09/2025 6:01 am COMPARISON: None. HISTORY: ORDERING SYSTEM PROVIDED HISTORY: Reason for Exam: knee pain FINDINGS: Bones are demineralized. No acute fracture or dislocation. Soft tissue swelling along the medial aspect of the distal thigh. No suspicious osseous lesion. No radiodense foreign body. Vascular calcifications. IMPRESSION: No acute osseous findings with radiograph. Preliminary Report was Dictated by a Resident Interpreted by: Jw Oglesby MD Preliminary Report By: Smooth Singh Electronically signed By Jw Oglesby MD Dictated Date: 07/09/2025 6:04:29 AM Prelim Date: 07/09/2025 6:05:59 AM Sign Date: 07/09/2025 6:11:06 AM Ordering Provider: BRIAN TRINIDAD Normal [facility] .Auto Diffon 06-15-2025 Basophil, Absolute 0.1 10 3/mcL Normal 0.0-0.3 [facility] Comment on above: Performed By: #### M G, CBC, GFR, ADIFF, BMP, ANEU #### [address] [address] Basophils/100 WBC (Bld) 1.4 % Normal 0.0-2.5 [facility] Comment on above: Performed By: #### M G, CBC, GFR, ADIFF, BMP, ANEU #### [address] [address] Eosinophil, Absolute 0.2 10 3/mcL Normal 0.0-0.7 [facility] Comment on above: Performed By: #### M G, CBC, GFR, ADIFF, BMP, ANEU #### [address] [address] Eosinophils/100 WBC (Bld) 3.8 % Normal 0.0-6.0 [facility] Comment on above: Performed By: #### M G, CBC, GFR, ADIFF, BMP, ANEU #### [address] [address] Lymphocyte, Absolute 2.2 10 3/mcL Normal 0.9-4.3 [facility] Comment on above: Performed By: #### M G, CBC, GFR, ADIFF, BMP, ANEU #### [address] [address] Lymphocytes/100 WBC (Bld) 39.1 % Normal 20.0-40.0 [facility] Comment on above: Performed By: #### M G, CBC, GFR, ADIFF, BMP, ANEU #### [address] [address] Monocyte, Absolute 0.8 10 3/mcL Normal 0.1-1.4 [facility] Comment on above: Performed By: #### M G, CBC, GFR, ADIFF, BMP, ANEU #### [address] [address] Monocytes/100 WBC (Bld) 14.1 % High 2.0-13.0 [facility] Comment on above: Performed By: #### M G, CBC, GFR, ADIFF, BMP, ANEU #### [address] [address] Neutrophils/100 WBC (Bld) 41.6 % Low 50.0-75.0 [facility] Comment on above: Performed By: #### M G, CBC, GFR, ADIFF, BMP, ANEU #### [address] [address] .GFRon 06-15-2025 Estimated Glomerular Filtration Rate 69 ml/min/1.73sqm Normal [facility] Comment on above: Result Comment: Stages of Chronic Kidney Disease (CKD) Stage Description eGFR(ml/min/1.73 sq.m.) CKD 1 Normal kidney function or >=90 normal kindney function with possible kidney damage (ex. Proteinuria) CKD 2 Kidney damage with mild loss 60-89 of kidney function CKD 3a Mild to moderate loss of kidney 45-59 function CKD 3b Moderate to severe loss of 30-44 of kindey function CKD 4 Severe loss of kidney function 15-29 CKD 5 Kidney failure <15 Note: (go live 2024) the eGFR calculation was updated to the 2020 CKD-EPI creatinine equation without a race factor to calculate the eGFR results. Performed By: #### M G, CBC, GFR, ADIFF, BMP, ANEU #### [place] [address] .NEUABSon 06-15-2025 Neutrophil, Absolute 2.3 10 3/mcL Normal 2.3-8.1 [facility] Comment on above: Performed By: #### M G, CBC, GFR, ADIFF, BMP, ANEU #### [place] [id number] BMPon 06-15-2025 BUN/Creatinine Ratio 27.8 ratio High 10.0-22.0 [facility] Comment on above: Performed By: #### M G, CBC, GFR, ADIFF, BMP, ANEU #### [place] [address] Calcium [Mass/Vol] 8.6 mg/dL Low 8.7-10.4 [facility] Comment on above: Performed By: #### M G, CBC, GFR, ADIFF, BMP, ANEU #### [place] [address] Chloride [Moles/Vol] 107 mmol/L Normal 98-110 [facility] Comment on above: Performed By: #### M G, CBC, GFR, ADIFF, BMP, ANEU #### [address] [address] CO2 [Moles/Vol] 34 mmol/L High 22-32 [facility] Comment on above: Performed By: #### M G, CBC, GFR, ADIFF, BMP, ANEU #### [address] [address] Creatinine [Mass/Vol] 0.90 mg/dL Normal 0.50-1.20 [facility] Comment on above: Result Comment: Test ing performed on [employer] analyzer using enzymatic creatinine methodology. Performed By: #### M G, CBC, GFR, ADIFF, BMP, ANEU #### [address] [address] Electrolyte Balance 5.0 mEq/L Normal 4.0-15.0 [facility] Comment on above: Performed By: #### M G, CBC, GFR, ADIFF, BMP, ANEU #### [address] [address] Glucose [Mass/Vol] 126 mg/dL High 82-115 [facility] Comment on above: Performed By: #### M G, CBC, GFR, ADIFF, BMP, ANEU #### [address] [address] Potassium [Moles/Vol] 4.1 mmol/L Normal 3.5-5.0 [facility] Comment on above: Performed By: #### M G, CBC, GFR, ADIFF, BMP, ANEU #### [address] [address] Sodium [Moles/Vol] 146 mmol/L High 136-145 [facility] Comment on above: Performed By: #### M G, CBC, GFR, ADIFF, BMP, ANEU #### [address] [address] Urea nitrogen [Mass/Vol] 25.0 mg/dL High 8.0-22.0 [facility] Comment on above: Performed By: #### M G, CBC, GFR, ADIFF, BMP, ANEU #### [address] [address] CBCon 06-15-2025 Erythrocyte distribution width (RBC) [Ratio] 17.8 % High 11.5-15.5 [facility] Comment on above: Performed By: #### M G, CBC, GFR, ADIFF, BMP, ANEU #### [place] [address] Hematocrit (Bld) [Volume fraction] 34.8 % Normal 34.0-46.0 [facility] Comment on above: Performed By: #### M G, CBC, GFR, ADIFF, BMP, ANEU #### [place] [address] Hgb 11.4 G/dL Low 12.0-16.0 [facility] Comment on above: Performed By: #### M G, CBC, GFR, ADIFF, BMP, ANEU #### [place] [address] MCH (RBC) [Entitic mass] 30.1 pg Normal 27.0-33.0 [facility] Comment on above: Performed By: #### M G, CBC, GFR, ADIFF, BMP, ANEU #### [place] [address] MCHC 32.7 G/dL Normal 32.0-36.0 [facility] Comment on above: Performed By: #### M G, CBC, GFR, ADIFF, BMP, ANEU #### [place] [address] MCV (RBC) [Entitic vol] 91.8 fL Normal 80.0-99.0 [facility] Comment on above: Performed By: #### M G, CBC, GFR, ADIFF, BMP, ANEU #### [place] [address] Platelet 346 10 3/mcL Normal 150-450 [facility] Comment on above: Performed By: #### M G, CBC, GFR, ADIFF, BMP, ANEU #### [place] [address] Platelet mean volume (Bld) [Entitic vol] 8.7 fL Normal 6.6-10.5 [facility] Comment on above: Performed By: #### M G, CBC, GFR, ADIFF, BMP, ANEU #### [place] [id number] [place] [address] RBC 3.79 10 6/mcL Low 4.10-5.30 [facility] Comment on above: Performed By: #### M G, CBC, GFR, ADIFF, BMP, ANEU #### [place] [id number] [place] [address] WBC 5.6 10 3/mcL Normal 4.5-10.8 [facility] Comment on above: Performed By: #### M G, CBC, GFR, ADIFF, BMP, ANEU #### [address] [address] LABORATORYOrdered By: SYSTEM SYSTEM on 06-15-2025 Basophils (Bld) [#/Vol] 0.1 103/mcL Normal 0.0 - 0.3 10^3/mcL AH Workflow SS Basophils/100 WBC (Bld) 1.4 % Normal 0.0 - 2.5 % AH Workflow SS Calcium [Mass/Vol] 8.6 mg/dL Low 8.7 - 10. 4 mg/dL ADM SS Chloride [Moles/Vol] 107 mmol/L Normal 98 - 11 0 mEq/L ADM SS CO2 [Moles/Vol] 34 mmol/L High 22 - 32 mEq/L ADM SS Creatinine [Mass/Vol] 0.90 mg/dL Normal 0.50 - 1.20 mg/dL ADM SS Comment on above: Interpretive Data: T esting performed on [employer] analyzer using enzymatic creatinine methodology. Electrolyte Balance 5.0 mEq/L Normal 4.0 - 15 .0 mEq/L ADM SS Eosinophils (Bld) [#/Vol] 0.2 103/mcL Normal 0.0 - 0.7 10^3/mcL AH Workflow SS Eosinophils/100 WBC (Bld) 3.8 % Normal 0.0 - 6.0 % AH Workflow SS Erythrocyte distribution width (RBC) [Ratio] 17.8 % High 11.5 - 15.5 % AH Workflow SS Estimated Glomerular Filtration Rate 69 ml/min/1.73sqm Invalid Interpretation Code AH ADM SS Comment on above: Interpretive Data: Stages of Chronic Kidney Disease (CKD) Stage Description eGFR(ml/min/1.73 sq.m.) CKD 1 Normal kidney function or >=90 normal kindney function with possible kidney damage (ex. Proteinuria) CKD 2 Kidney damage with mild loss 60-89 of kidney function CKD 3a Mild to moderate loss of kidney 45-59 function CKD 3b Moderate to severe loss of 30-44 of kindey function CKD 4 Severe loss of kidney function 15-29 CKD 5 Kidney failure <15 Note: (go live 2024) the eGFR calculation was updated to the 2020 CKD-EPI creatinine equation without a race factor to calculate the eGFR results. Glucose [Mass/Vol] 126 mg/dL High 82 - 115 mg/dL AH ADM SS Hematocrit (Bld) [Volume fraction] 34.8 % Normal 34.0 - 46.0 % AH Workflow SS Hemoglobin (Bld) [Mass/Vol] 11.4 G/dL Low 12.0 - 16.0 G/dL AH Workflow SS Lymphocytes (Bld) [#/Vol] 2.2 103/mcL Normal 0.9 - 4.3 10^3/mcL AH Workflow SS Lymphocytes/100 WBC (Bld) 39.1 % Normal 20.0 - 40.0 % AH Workflow SS Magnesium [Mass/Vol] 1.8 mg/dL Normal 1.6 - 2 .4 mg/dL AH ADM SS MCH (RBC) [Entitic mass] 30.1 pg Normal 27.0 - 33.0 pg AH Workflow SS MCHC 32.7 G/dL Normal 32.0 - 36.0 G/dL AH Workflow SS MCV (RBC) [Entitic vol] 91.8 fL Normal 80.0 - 99.0 fL AH Workflow SS Monocytes (Bld) [#/Vol] 0.8 103/mcL Normal 0.1 - 1.4 10^3/mcL AH Workflow SS Monocytes/100 WBC (Bld) 14.1 % High 2.0 - 13.0 % AH Workflow SS Neutrophils (Bld) [#/Vol] 2.3 103/mcL Normal 2.3 - 8.1 10^3/mcL AH Workflow SS Neutrophils/100 WBC (Bld) 41.6 % Low 50.0 - 75.0 % AH Workflow SS Platelet mean volume (Bld) [Entitic vol] 8.7 fL Normal 6.6 - 10.5 fL AH Workflow SS Platelets (Bld) [#/Vol] 346 103/mcL Normal 150 - 450 10^3/mcL AH Workflow SS Potassium [Moles/Vol] 4.1 mmol/L Normal 3.5 - 5.0 mEq/L AH ADM SS RBC (Bld) [#/Vol] 3.79 106/mcL Low 4.10 - 5.3 0 10^6/mcL AH Workflow SS Sodium [Moles/Vol] 146 mmol/L High 136 - 145 mEq/L AH ADM SS Urea nitrogen [Mass/Vol] 25.0 mg/dL High 8.0 - 22.0 mg/dL AH ADM SS Urea nitrogen/Creatinine [Mass ratio] 27.8 ratio High 10.0 - 22.0 ratio AH ADM SS WBC (Bld) [#/Vol] 5.6 103/mcL Normal 4.5 - 10.8 10^3/mcL AH Workflow SS MGon 06-15-2025 Magnesium [Mass/Vol] 1.8 mg/dL Normal 1.6-2.4 [facility] Comment on above: Performed By: #### M G, CBC, GFR, ADIFF, BMP, ANEU #### [address] [address] .GFRon 06-14-2025 Estimated Glomerular Filtration Rate 62 ml/min/1.73sqm Normal [facility] Comment on above: Result Comment: Stages of Chronic Kidney Disease (CKD) Stage Description eGFR(ml/min/1.73 sq.m.) CKD 1 Normal kidney function or >=90 normal kindney function with possible kidney damage (ex. Proteinuria) CKD 2 Kidney damage with mild loss 60-89 of kidney function CKD 3a Mild to moderate loss of kidney 45-59 function CKD 3b Moderate to severe loss of 30-44 of kindey function CKD 4 Severe loss of kidney function 15-29 CKD 5 Kidney failure <15 Note: (go live 2024) the eGFR calculation was updated to the 2020 CKD-EPI creatinine equation without a race factor to calculate the eGFR results. Performed By: #### T ARIELLE #### [address] [address] BMPon 06-14-2025 BUN/Creatinine Ratio 26.5 ratio High 10.0-22.0 [facility] Comment on above: Performed By: #### T GOMEZ #### [address] [address] Calcium [Mass/Vol] 8.1 mg/dL Low 8.7-10.4 [facility] Comment on above: Performed By: #### T GOMEZ #### [address] [address] Chloride [Moles/Vol] 104 mmol/L Normal 98-110 [facility] Comment on above: Performed By: #### T GOMEZ #### [address] [address] CO2 [Moles/Vol] 33 mmol/L High 22-32 [facility] Comment on above: Performed By: #### T GOMEZ #### [place] [id number] Creatinine [Mass/Vol] 0.98 mg/dL Normal 0.50-1.20 [facility] Comment on above: Result Comment: Test ing performed on [employer] analyzer using enzymatic creatinine methodology. Performed By: #### T GOMEZ #### [address] [address] Electrolyte Balance 8.0 mEq/L Normal 4.0-15.0 [facility] Comment on above: Performed By: #### T GOMEZ #### [address] [address] Glucose [Mass/Vol] 118 mg/dL High 82-115 [facility] Comment on above: Performed By: #### T GOMEZ #### [place] [id number] Potassium [Moles/Vol] 4.2 mmol/L Normal 3.5-5.0 [facility] Comment on above: Result Comment: Spec imen slightly hemolyzed. Performed By: #### T GOMEZ #### [place] [id number] Sodium [Moles/Vol] 145 mmol/L Normal 136-145 [facility] Comment on above: Performed By: #### T GOMEZ #### [place] [id number] Urea nitrogen [Mass/Vol] 26.0 mg/dL High 8.0-22.0 [facility] Comment on above: Performed By: #### T [facility] #### [place] [address] LABORATORYOrdered By: SYSTEM SYSTEM on 06-14-2025 Calcium [Mass/Vol] 8.1 mg/dL Low 8.7 - 10. 4 mg/dL AH ADM SS Chloride [Moles/Vol] 104 mmol/L Normal 98 - 11 0 mEq/L AH ADM SS CO2 [Moles/Vol] 33 mmol/L High 22 - 32 mEq/L AH ADM SS Creatinine [Mass/Vol] 0.98 mg/dL Normal 0.50 - 1.20 mg/dL ADM SS Comment on above: Interpretive Data: T esting performed on [employer] analyzer using enzymatic creatinine methodology. Electrolyte Balance 8.0 mEq/L Normal 4.0 - 15 .0 mEq/L AH ADM SS Estimated Glomerular Filtration Rate 62 ml/min/1.73sqm Invalid Interpretation Code ADM SS Comment on above: Interpretive Data: Stages of Chronic Kidney Disease (CKD) Stage Description eGFR(ml/min/1.73 sq.m.) CKD 1 Normal kidney function or >=90 normal kindney function with possible kidney damage (ex. Proteinuria) CKD 2 Kidney damage with mild loss 60-89 of kidney function CKD 3a Mild to moderate loss of kidney 45-59 function CKD 3b Moderate to severe loss of 30-44 of kindey function CKD 4 Severe loss of kidney function 15-29 CKD 5 Kidney failure <15 Note: (go live 2024) the eGFR calculation was updated to the 2020 CKD-EPI creatinine equation without a race factor to calculate the eGFR results. Glucose [Mass/Vol] 118 mg/dL High 82 - 115 mg/dL AH ADM SS Magnesium [Mass/Vol] 1.9 mg/dL Normal 1.6 - 2 .4 mg/dL ADM SS Potassium [Moles/Vol] 4.2 mmol/L Normal 3.5 - 5.0 mEq/L ADM SS Comment on above: Result Comment: Spec imen slightly hemolyzed. Sodium [Moles/Vol] 145 mmol/L Normal 136 - 145 mEq/L AH ADM SS Urea nitrogen [Mass/Vol] 26.0 mg/dL High 8.0 - 22.0 mg/dL AH ADM SS Urea nitrogen/Creatinine [Mass ratio] 26.5 ratio High 10.0 - 22.0 ratio AH ADM SS MGon 06-14-2025 Magnesium [Mass/Vol] 1.9 mg/dL Normal 1.6-2.4 [facility] Comment on above: Performed By: #### T GOMEZ #### [address] [address] XR CHEST 1 VIEWon 06-14-2025 XR CHEST 1 VIEW ORIGINAL EXAMINATION: ONE XRAY VIEW OF THE CHEST TECHNIQUE: One view AP upright COMPARISON: Chest 06/12/2025 HISTORY: ORDERING SYSTEM PROVIDED HISTORY: Reason for Exam: sob FINDINGS: Support devices: None Cardiomediastinal: Stable mild cardiomegaly. Coronary artery stents and atherosclerotic calcifications noted. Lungs: The lungs are hyperinflated. The previously seen multifocal ground-glass opacities are no longer conspicuous. No pulmonary edema, consolidation or large pleural effusion is present. Pneumothorax: None Osseous: No acute osseous pathology. Healed left rib fractures. Incompletely imaged ACDF. IMPRESSION: 1. No acute pulmonary disease. 2. Stable mild cardiomegaly. 3. Pulmonary hyperinflation. Interpreted by: Armando Blanton MD Preliminary Report By: Armando Blanton MD Electronically signed By Armando Blanton MD Dictated Date: 06/14/2025 10:21:50 AM Prelim Date: 06/14/2025 10:24:03 AM Sign Date: 06/14/2025 10:24:03 AM Ordering Provider: JOAN Rivero [facility] .Auto Diffon 06-13-2025 Basophil, Absolute 0.0 10 3/mcL Normal 0.0-0.3 [facility] Comment on above: Performed By: #### T GOMEZ #### [address] [address] Basophils/100 WBC (Bld) 0.4 % Normal 0.0-2.5 [facility] Comment on above: Performed By: #### T GOMEZ #### [address] [address] Eosinophil, Absolute 0.0 10 3/mcL Normal 0.0-0.7 [facility] Comment on above: Performed By: #### T GOMEZ #### [address] [address] Eosinophils/100 WBC (Bld) 0.0 % Normal 0.0-6.0 [facility] Comment on above: Performed By: #### T GOMEZ #### [facility] [address] [place] [address] Lymphocyte, Absolute 0.4 10 3/mcL Low 0.9-4.3 [facility] Comment on above: Performed By: #### T GOMEZ #### [address] [address] Lymphocytes/100 WBC (Bld) 12.3 % Low 20.0-40.0 [facility] Comment on above: Performed By: #### T GOMEZ #### [address] [address] Monocyte, Absolute 0.2 10 3/mcL Normal 0.1-1.4 [facility] Comment on above: Performed By: #### T GOMEZ #### [address] [address] Monocytes/100 WBC (Bld) 6.6 % Normal 2.0-13.0 [facility] Comment on above: Performed By: #### T GOMEZ #### [address] [address] Neutrophils/100 WBC (Bld) 80.7 % High 50.0-75.0 [facility] Comment on above: Performed By: #### T GOMEZ #### [address] [address] .GFRon 06-13-2025 Estimated Glomerular Filtration Rate 68 ml/min/1.73sqm Normal [facility] Comment on above: Result Comment: Stages of Chronic Kidney Disease (CKD) Stage Description eGFR(ml/min/1.73 sq.m.) CKD 1 Normal kidney function or >=90 normal kindney function with possible kidney damage (ex. Proteinuria) CKD 2 Kidney damage with mild loss 60-89 of kidney function CKD 3a Mild to moderate loss of kidney 45-59 function CKD 3b Moderate to severe loss of 30-44 of kindey function CKD 4 Severe loss of kidney function 15-29 CKD 5 Kidney failure <15 Note: (go live 2024) the eGFR calculation was updated to the 2020 CKD-EPI creatinine equation without a race factor to calculate the eGFR results. Performed By: #### T GOMEZ #### [address] [address] .NEUABSon 06-13-2025 Neutrophil, Absolute 2.6 10 3/mcL Normal 2.3-8.1 [facility] Comment on above: Performed By: #### T GOMEZ #### [address] [address] BMPon 06-13-2025 BUN/Creatinine Ratio 18.7 ratio Normal 10.0-22.0 [facility] Comment on above: Performed By: #### T GOMEZ #### [address] [address] Calcium [Mass/Vol] 8.3 mg/dL Low 8.7-10.4 [facility] Comment on above: Performed By: #### T GOMEZ #### [address] [address] Chloride [Moles/Vol] 101 mmol/L Normal 98-110 [facility] Comment on above: Performed By: #### T GOMEZ #### [address] [address] CO2 [Moles/Vol] 34 mmol/L High 22-32 [facility] Comment on above: Performed By: #### T GOMEZ #### [address] [address] Creatinine [Mass/Vol] 0.91 mg/dL Normal 0.50-1.20 [facility] Comment on above: Result Comment: Test ing performed on [employer] analyzer using enzymatic creatinine methodology. Performed By: #### T GOMEZ #### [address] [address] Electrolyte Balance 9.0 mEq/L Normal 4.0-15.0 [facility] Comment on above: Performed By: #### T GOMEZ #### [place] [id number] Glucose [Mass/Vol] 125 mg/dL High 82-115 [facility] Comment on above: Performed By: #### T GOMEZ #### [place] [id number] Potassium [Moles/Vol] 3.6 mmol/L Normal 3.5-5.0 [facility] Comment on above: Performed By: #### T GOMEZ #### [place] [id number] Sodium [Moles/Vol] 144 mmol/L Normal 136-145 [facility] Comment on above: Performed By: #### T GOMEZ #### [place] [id number] Urea nitrogen [Mass/Vol] 17.0 mg/dL Normal 8.0-22.0 [facility] Comment on above: Performed By: #### T GOMEZ #### [place] [address] CBCon 06-13-2025 Erythrocyte distribution width (RBC) [Ratio] 17.4 % High 11.5-15.5 [facility] Comment on above: Performed By: #### T GOMEZ #### [place] [id number] Hematocrit (Bld) [Volume fraction] 37.9 % Normal 34.0-46.0 [facility] Comment on above: Performed By: #### T GOMEZ #### [place] [address] Hgb 12.3 G/dL Normal 12.0-16.0 [facility] Comment on above: Performed By: #### T GOMEZ #### [place] [id number] MCH (RBC) [Entitic mass] 29.3 pg Normal 27.0-33.0 [facility] Comment on above: Performed By: #### T GOMEZ #### [place] [id number] MCHC 32.5 G/dL Normal 32.0-36.0 [facility] Comment on above: Performed By: #### T GOMEZ #### [address] [address] MCV (RBC) [Entitic vol] 90.3 fL Normal 80.0-99.[address] [facility] Comment on above: Performed By: #### T GOMEZ #### [place] [id number] Platelet 452 10 3/mcL High 150-450 [facility] Comment on above: Performed By: #### T GOMEZ #### [place] [address] Platelet mean volume (Bld) [Entitic vol] 8.7 fL Normal 6.6-10.5 [facility] Comment on above: Performed By: #### T GOMEZ #### [place] [address] RBC 4.20 10 6/mcL Normal 4.10-5.30 [facility] Comment on above: Performed By: #### T GOMEZ #### [place] [address] WBC 3.2 10 3/mcL Low 4.5-10.8 [facility] Comment on above: Performed By: #### T GOMEZ #### [place] [address] LABORATORYOrdered By: SYSTEM SYSTEM on 06-13-2025 Troponin I.cardiac DL <= 0.01 ng/mL [Mass/Vol] 17 ng/L Normal 0 - 34 ng/L ADM SS Comment on above: Interpretive Data: High Sensitive Troponin I Reference Ranges: Female: 0-34 ng/L Male: 0-54 ng/L Testing performed on [employer] analyzer using direct chemiluminescent technology. Basophils (Bld) [#/Vol] 0.0 103/mcL Normal 0.0 - 0.3 10^3/mcL AH Workflow SS Basophils/100 WBC (Bld) 0.4 % Normal 0.0 - 2.5 % Workflow SS Calcium [Mass/Vol] 8.3 mg/dL Low 8.7 - 10. 4 mg/dL ADM SS Chloride [Moles/Vol] 101 mmol/L Normal 98 - 11 0 mEq/L ADM SS CO2 [Moles/Vol] 34 mmol/L High 22 - 32 mEq/L ADM SS Creatinine [Mass/Vol] 0.91 mg/dL Normal 0.50 - 1.20 mg/dL ADM SS Comment on above: Interpretive Data: T esting performed on [employer] analyzer using enzymatic creatinine methodology. Electrolyte Balance 9.0 mEq/L Normal 4.0 - 15 .0 mEq/L ADM SS Eosinophils (Bld) [#/Vol] 0.0 103/mcL Normal 0.0 - 0.7 10^3/mcL Workflow SS Eosinophils/100 WBC (Bld) 0.0 % Normal 0.0 - 6.0 % Workflow SS Erythrocyte distribution width (RBC) [Ratio] 17.4 % High 11.5 - 15.5 % Workflow SS Estimated Glomerular Filtration Rate 68 ml/min/1.73sqm Invalid Interpretation Code ADM SS Comment on above: Interpretive Data: Stages of Chronic Kidney Disease (CKD) Stage Description eGFR(ml/min/1.73 sq.m.) CKD 1 Normal kidney function or >=90 normal kindney function with possible kidney damage (ex. Proteinuria) CKD 2 Kidney damage with mild loss 60-89 of kidney function CKD 3a Mild to moderate loss of kidney 45-59 function CKD 3b Moderate to severe loss of 30-44 of kindey function CKD 4 Severe loss of kidney function 15-29 CKD 5 Kidney failure <15 Note: (go live 2024) the eGFR calculation was updated to the 2020 CKD-EPI creatinine equation without a race factor to calculate the eGFR results. Glucose [Mass/Vol] 125 mg/dL High 82 - 115 mg/dL ADM SS Hematocrit (Bld) [Volume fraction] 37.9 % Normal 34.0 - 46.0 % Workflow SS Hemoglobin (Bld) [Mass/Vol] 12.3 G/dL Normal 12.0 - 16.0 G/dL Workflow SS Lymphocytes (Bld) [#/Vol] 0.4 103/mcL Low 0.9 - 4.3 10^3/mcL Workflow SS Lymphocytes/100 WBC (Bld) 12.3 % Low 20.0 - 40.0 % AH Workflow SS Magnesium [Mass/Vol] 1.8 mg/dL Normal 1.6 - 2 .4 mg/dL ADM SS MCH (RBC) [Entitic mass] 29.3 pg Normal 27.0 - 33.0 pg AH Workflow SS MCHC 32.5 G/dL Normal 32.0 - 36.0 G/dL AH Workflow SS MCV (RBC) [Entitic vol] 90.3 fL Normal 80.0 - 99.0 fL AH Workflow SS Monocytes (Bld) [#/Vol] 0.2 103/mcL Normal 0.1 - 1.4 10^3/mcL AH Workflow SS Monocytes/100 WBC (Bld) 6.6 % Normal 2.0 - 13.0 % AH Workflow SS Neutrophils (Bld) [#/Vol] 2.6 103/mcL Normal 2.3 - 8.1 10^3/mcL AH Workflow SS Neutrophils/100 WBC (Bld) 80.7 % High 50.0 - 75.0 % AH Workflow SS Platelet mean volume (Bld) [Entitic vol] 8.7 fL Normal 6.6 - 10.5 fL AH Workflow SS Platelets (Bld) [#/Vol] 452 103/mcL High 150 - 450 10^3/mcL AH Workflow SS Potassium [Moles/Vol] 3.6 mmol/L Normal 3.5 - 5.0 mEq/L AH ADM SS RBC (Bld) [#/Vol] 4.20 106/mcL Normal 4.10 - 5.3 0 10^6/mcL AH Workflow SS Sodium [Moles/Vol] 144 mmol/L Normal 136 - 145 mEq/L ADM SS Urea nitrogen [Mass/Vol] 17.0 mg/dL Normal 8.0 - 22.0 mg/dL ADM SS Urea nitrogen/Creatinine [Mass ratio] 18.7 ratio Normal 10.0 - 22.0 ratio ADM SS WBC (Bld) [#/Vol] 3.2 103/mcL Low 4.5 - 10.8 10^3/mcL Workflow SS MGon 06-13-2025 Magnesium [Mass/Vol] 1.8 mg/dL Normal 1.6-2.4 [facility] Comment on above: Performed By: #### T [facility] #### [address] 06-13-2025 High Sensitivity Troponin I 17 ng/L Normal 0-34 [facility] Comment on above: Result Comment: High Sensitive Troponin I Reference Ranges: Female: 0-34 ng/L Male: 0-54 ng/L Testing performed on [employer] IM analyzer using direct chemiluminescent technology. Performed By: #### T [facility] #### [address] [address] .Auto Diffon 06-12-2025 Basophil, Absolute 0.1 10 3/mcL Normal 0.0-0.3 [facility] Comment on above: Performed By: #### A DIFF, PBNP, TROPHS, CBC, GFR, MDW, ANEU, BMP #### [address] [address] Basophils/100 WBC (Bld) 1.0 % Normal 0.0-2.5 [facility] Comment on above: Performed By: #### A DIFF, PBNP, TROPHS, CBC, GFR, MDW, ANEU, BMP #### [address] [address] Eosinophil, Absolute 0.1 10 3/mcL Normal 0.0-0.7 [facility] Comment on above: Performed By: #### A DIFF, PBNP, TROPHS, CBC, GFR, MDW, ANEU, BMP #### [address] [address] Eosinophils/100 WBC (Bld) 1.3 % Normal 0.0-6.0 [facility] Comment on above: Performed By: #### A DIFF, PBNP, TROPHS, CBC, GFR, MDW, ANEU, BMP #### [address] [address] Lymphocyte, Absolute 2.0 10 3/mcL Normal 0.9-4.3 [facility] Comment on above: Performed By: #### A DIFF, PBNP, TROPHS, CBC, GFR, MDW, ANEU, BMP #### [address] [address] Lymphocytes/100 WBC (Bld) 25.0 % Normal 20.0-40.0 [facility] Comment on above: Performed By: #### A DIFF, PBNP, TROPHS, CBC, GFR, MDW, ANEU, BMP #### [address] [place], [place] [address] Monocyte, Absolute 0.9 10 3/mcL Normal 0.1-1.4 [facility] Comment on above: Performed By: #### A DIFF, PBNP, TROPHS, CBC, GFR, MDW, ANEU, BMP #### [address] [address] Monocytes/100 WBC (Bld) 11.3 % Normal 2.0-13.0 [facility] Comment on above: Performed By: #### A DIFF, PBNP, TROPHS, CBC, GFR, MDW, ANEU, BMP #### [address] [address] Neutrophils/100 WBC (Bld) 61.4 % Normal 50.0-75.0 [facility] Comment on above: Performed By: #### A DIFF, PBNP, TROPHS, CBC, GFR, MDW, ANEU, BMP #### [address] [address] .GFRon 06-12-2025 Estimated Glomerular Filtration Rate 87 ml/min/1.73sqm [facility] Comment on above: Result Comment: Stages of Chronic Kidney Disease (CKD) Stage Description eGFR(ml/min/1.73 sq.m.) CKD 1 Normal kidney function or >=90 normal kindney function with possible kidney damage (ex. Proteinuria) CKD 2 Kidney damage with mild loss 60-89 of kidney function CKD 3a Mild to moderate loss of kidney 45-59 function CKD 3b Moderate to severe loss of 30-44 of kindey function CKD 4 Severe loss of kidney function 15-29 CKD 5 Kidney failure <15 Note: (go live 2024) the eGFR calculation was updated to the 2020 CKD-EPI creatinine equation without a race factor to calculate the eGFR results. Performed By: #### T [facility] #### [facility] [address] [place] [address] Estimated Glomerular Filtration Rate 79 ml/min/1.73sqm Normal [facility] Comment on above: Result Comment: Stages of Chronic Kidney Disease (CKD) Stage Description eGFR(ml/min/1.73 sq.m.) CKD 1 Normal kidney function or >=90 normal kindney function with possible kidney damage (ex. Proteinuria) CKD 2 Kidney damage with mild loss 60-89 of kidney function CKD 3a Mild to moderate loss of kidney 45-59 function CKD 3b Moderate to severe loss of 30-44 of kindey function CKD 4 Severe loss of kidney function 15-29 CKD 5 Kidney failure <15 Note: (go live 2024) the eGFR calculation was updated to the 2020 CKD-EPI creatinine equation without a race factor to calculate the eGFR results. Performed By: #### A DIFF, PBNP, TROPHS, CBC, GFR, MDW, ANEU, BMP #### [address] [address] .MDWon 06-12-2025 Monocyte Distribution Width 17.54 Normal 0.00-20.00 [facility] Comment on above: Result Comment: For ED adult patients suspected of sepsis, MDW<=20.0 does not rule out sepsis or risk of sepsis Performed By: #### A DIFF, PBNP, TROPHS, CBC, GFR, MDW, ANEU, BMP #### [address] [address] .NEUABSon 06-12-2025 Neutrophil, Absolute 5.0 10 3/mcL Normal 2.3-8.1 [facility] Comment on above: Performed By: #### A DIFF, PBNP, TROPHS, CBC, GFR, MDW, ANEU, BMP #### [address] [address] BMPon 06-12-2025 BUN/Creatinine Ratio 16.2 ratio Normal 10.0-22.0 [facility] Comment on above: Performed By: #### T ARIELLE #### [address] [address] Calcium [Mass/Vol] 8.6 mg/dL Low 8.7-10.4 [facility] Comment on above: Performed By: #### T ARIELLE #### [address] [address] Chloride [Moles/Vol] 103 mmol/L Normal 98-110 [facility] Comment on above: Performed By: #### T GOMEZ #### [address] [address] CO2 [Moles/Vol] 30 mmol/L Normal 22-32 [facility] Comment on above: Performed By: #### T GOMEZ #### [address] [address] Creatinine [Mass/Vol] 0.74 mg/dL Normal 0.50-1.20 [facility] Comment on above: Result Comment: Test ing performed on [employer] analyzer using enzymatic creatinine methodology. Performed By: #### T GOMEZ #### [place] [id number] Electrolyte Balance 10.0 mEq/L Normal 4.0-15.0 [facility] Comment on above: Performed By: #### T GOMEZ #### [place] [id number] Glucose [Mass/Vol] 124 mg/dL High 82-115 [facility] Comment on above: Performed By: #### T GOMEZ #### [place] [id number] Potassium [Moles/Vol] 3.8 mmol/L Normal 3.5-5.0 [facility] Comment on above: Performed By: #### T GOMEZ #### [place] [id number] Sodium [Moles/Vol] 143 mmol/L Normal 136-145 [facility] Comment on above: Performed By: #### T GOMEZ #### [place] [id number] Urea nitrogen [Mass/Vol] 12.0 mg/dL Normal 8.0-22.0 [facility] Comment on above: Performed By: #### T GOMEZ #### [address] [address] CBCon 06-12-2025 Erythrocyte distribution width (RBC) [Ratio] 18.1 % High 11.5-15.5 [facility] Comment on above: Performed By: #### A DIFF, PBNP, TROPHS, CBC, GFR, MDW, ANEU, BMP #### [address] [address] Hematocrit (Bld) [Volume fraction] 44.2 % Normal 34.0-46.0 [facility] [facility] Comment on above: Performed By: #### A DIFF, PBNP, TROPHS, CBC, GFR, MDW, ANEU, BMP #### [place] [id number] [place], [place] [address] Hgb 13.8 G/dL Normal 12.0-16.0 [facility] Comment on above: Performed By: #### A DIFF, PBNP, TROPHS, CBC, GFR, MDW, ANEU, BMP #### [address] [address] MCH (RBC) [Entitic mass] 29.3 pg Normal 27.0-33.0 [facility] Comment on above: Performed By: #### A DIFF, PBNP, TROPHS, CBC, GFR, MDW, ANEU, BMP #### [address] [address] MCHC 31.2 G/dL Low 32.0-36.0 [facility] Comment on above: Performed By: #### A DIFF, PBNP, TROPHS, CBC, GFR, MDW, ANEU, BMP #### [address] [address] MCV (RBC) [Entitic vol] 93.7 fL Normal 80.0-99.0 [facility] Comment on above: Performed By: #### A DIFF, PBNP, TROPHS, CBC, GFR, MDW, ANEU, BMP #### [address] [address] Platelet 455 10 3/mcL High 150-450 [facility] Comment on above: Performed By: #### A DIFF, PBNP, TROPHS, CBC, GFR, MDW, ANEU, BMP #### [address] [address] Platelet mean volume (Bld) [Entitic vol] 8.3 fL Normal 6.6-10.5 [facility] Comment on above: Performed By: #### A DIFF, PBNP, TROPHS, CBC, GFR, MDW, ANEU, BMP #### [address] [address] RBC 4.71 10 6/mcL Normal 4.10-5.30 [facility] Comment on above: Performed By: #### A DIFF, PBNP, TROPHS, CBC, GFR, MDW, ANEU, BMP #### [address] [address] WBC 8.2 10 3/mcL Normal 4.5-10.8 [facility] Comment on above: Performed By: #### A DIFF, PBNP, TROPHS, CBC, GFR, MDW, ANEU, BMP #### [address] [address] CMPon 06-12-2025 Albumin Level 3.1 G/dL Low 3.4-4.8 [facility] Comment on above: Performed By: #### A DIFF, PBNP, TROPHS, CBC, GFR, MDW, ANEU, BMP #### [address] [address] Albumin/Globulin [Mass ratio] 0.8 {ratio} Low 1.1-2.5 [facility] Comment on above: Performed By: #### A DIFF, PBNP, TROPHS, CBC, GFR, MDW, ANEU, BMP #### [address] [address] ALP [Catalytic activity/Vol] 108 U/L Normal 40-135 [facility] Comment on above: Performed By: #### A DIFF, PBNP, TROPHS, CBC, GFR, MDW, ANEU, BMP #### [address] [address] ALT [Catalytic activity/Vol] 21 U/L Normal 14-59 [facility] Comment on above: Performed By: #### A DIFF, PBNP, TROPHS, CBC, GFR, MDW, ANEU, BMP #### [address] [address] AST [Catalytic activity/Vol] 32 U/L Normal 10-40 [facility] Comment on above: Performed By: #### A DIFF, PBNP, TROPHS, CBC, GFR, MDW, ANEU, BMP #### [address] [address] Bili Total 0.4 mg/dL Normal 0.2-1.0 [facility] Comment on above: Result Comment: Use of this assay is not recommended for patients undergoing treatment with eltrombopag due to the potential for falsely elevated results. Performed By: #### A DIFF, PBNP, TROPHS, CBC, GFR, MDW, ANEU, BMP #### [place] [address] BUN/Creatinine Ratio 16 ratio Normal 7-27 [facility] Comment on above: Performed By: #### A DIFF, PBNP, TROPHS, CBC, GFR, MDW, ANEU, BMP #### [address] [address] Calcium [Mass/Vol] 8.9 mg/dL Normal 8.4-10.2 [facility] Comment on above: Performed By: #### A DIFF, PBNP, TROPHS, CBC, GFR, MDW, ANEU, BMP #### [address] [address] Chloride [Moles/Vol] 106 mmol/L Normal 98-107 [facility] Comment on above: Performed By: #### A DIFF, PBNP, TROPHS, CBC, GFR, MDW, ANEU, BMP #### [address] [address] CO2 [Moles/Vol] 28 mmol/L Normal 23-31 [facility] Comment on above: Performed By: #### A DIFF, PBNP, TROPHS, CBC, GFR, MDW, ANEU, BMP #### [address] [address] Creatinine [Mass/Vol] 0.80 mg/dL Normal 0.51-0.95 [facility] Comment on above: Performed By: #### A DIFF, PBNP, TROPHS, CBC, GFR, MDW, ANEU, BMP #### [address] [address] Electrolyte Balance 7.0 mEq/L Normal 4.0-15.0 [facility] Comment on above: Performed By: #### A DIFF, PBNP, TROPHS, CBC, GFR, MDW, ANEU, BMP #### [address] [address] Globulin 4.1 G/dL Normal 2.7-4.4 [facility] Comment on above: Performed By: #### A DIFF, PBNP, TROPHS, CBC, GFR, MDW, ANEU, BMP #### [address] [address] Glucose [Mass/Vol] 183 mg/dL High 83-110 [facility] Comment on above: Performed By: #### A DIFF, PBNP, TROPHS, CBC, GFR, MDW, ANEU, BMP #### [address] [address] Potassium [Moles/Vol] 5.1 mmol/L Normal 3.5-5.1 [facility] Comment on above: Performed By: #### A DIFF, PBNP, TROPHS, CBC, GFR, MDW, ANEU, BMP #### [address] [address] Sodium [Moles/Vol] 141 mmol/L Normal 136-145 [facility] Comment on above: Performed By: #### A DIFF, PBNP, TROPHS, CBC, GFR, MDW, ANEU, BMP #### [address] [address] Total Protein 7.2 G/dL Normal 6.4-8.2 [facility] Comment on above: Performed By: #### A DIFF, PBNP, TROPHS, CBC, GFR, MDW, ANEU, BMP #### [address] [address] Urea nitrogen [Mass/Vol] 13 mg/dL Normal 7-18 [facility] Comment on above: Performed By: #### A DIFF, PBNP, TROPHS, CBC, GFR, MDW, ANEU, BMP #### [address] [address] CVFLURVon 06-12-2025 FLU A PCR Negative Normal Negative [facility] Comment on above: Performed By: #### A DIFF, PBNP, TROPHS, CBC, GFR, MDW, ANEU, BMP #### [address] [address] FLU B PCR Negative Normal Negative [facility] Comment on above: Performed By: #### A DIFF, PBNP, TROPHS, CBC, GFR, MDW, ANEU, BMP #### [address] [address] RSV PCR Negative Normal Negative [facility] Comment on above: Performed By: #### A DIFF, PBNP, TROPHS, CBC, GFR, MDW, ANEU, BMP #### [address] [address] SARS-CoV-2 (COVID-19) RNA IVANA+probe Ql (Unsp spec) Negative Normal Negative [facility] Comment on above: Result Comment: Resu lts from the Xpert Xpress CoV-2/Flu/RSV plus test should be correlated with the clinical history, epidemiological data, and other data available to the clinical evaluating the patient. Performance of the Xpert Xpress CoV-2/Flu/RSV plus test has only been established in nasopharyngeal swab specimen. Erroneous test results might occur from improper specimen collection, failure to follow the recommended sample collection, handling and storage procedures, technical error, or sample mix-up. False negative results may occur if a virus is present at a level below the analytical limit of detection. Viral nucleic acid may persist in vivo, independent of virus viability. Detection of analyte target(s) does not imply that the corresponding virus(es) are infectious or are the causative agents for clinical symptoms. Recent patient exposure to FluMist or other live attenuated influenza vaccines may cause inaccurate positive results. Performed By: #### A DIFF, PBNP, TROPHS, CBC, GFR, MDW, ANEU, BMP #### [place] [id number] [place], [place] [address] LABORATORYOrdered By: SYSTEM SYSTEM on 06-12-2025 Troponin I.cardiac DL <= 0.01 ng/mL [Mass/Vol] 20 ng/L Normal 0 - 34 ng/L AH ADM SS Comment on above: Interpretive Data: High Sensitive Troponin I Reference Ranges: Female: 0-34 ng/L Male: 0-54 ng/L Testing performed on [employer] IM analyzer using direct chemiluminescent technology. Natriuretic peptide.B prohormone N-Terminal IA [Mass/Vol] 8817 pg/mL High 0 - 900 pg/mL ADM SS Troponin I.cardiac DL <= 0.01 ng/mL [Mass/Vol] 22 ng/L Normal 0 - 34 ng/L AH ADM SS Comment on above: Interpretive Data: High Sensitive Troponin I Reference Ranges: Female: 0-34 ng/L Male: 0-54 ng/L Testing performed on [employer] IM analyzer using direct chemiluminescent technology. Troponin I.cardiac DL <= 0.01 ng/mL [Mass/Vol] 35 ng/L Normal 0 - 51 ng/L AO ADM SS Comment on above: Interpretive Data: H igh Sensitive Troponin I Reference Ranges: Female: 0-51 ng/L Male: 0-76 ng/L Testing performed on [employer] using a homogeneous sandwich chemiluminescent immunoassay based on [employer] technology. Albumin BCP dye [Mass/Vol] 3.1 G/dL Low 3.4 - 4.8 G/dL AO ADM SS Albumin/Globulin [Mass ratio] 0.8 {ratio} Low 1.1 - 2.5 ratio AO ADM SS ALP [Catalytic activity/Vol] 108 U/L Normal 40 - 135 U/L AO ADM SS ALT With P-5'-P [Catalytic activity/Vol] 21 U/L Normal 14 - 59 U/L AO ADM SS AST With P-5'-P [Catalytic activity/Vol] 32 U/L Normal 10 - 40 U/L AO ADM SS Basophils (Bld) [#/Vol] 0.1 103/mcL Normal 0.0 - 0.3 10^3/mcL AO Workflow SS Basophils/100 WBC (Bld) 1.0 % Normal 0.0 - 2.5 % AO Workflow SS Bilirubin [Mass/Vol] 0.4 mg/dL Normal 0.2 - 1 .0 mg/dL AO ADM SS Comment on above: Interpretive Data: U se of this assay is not recommended for patients undergoing treatment with eltrombopag due to the potential for falsely elevated results. Calcium [Mass/Vol] 8.9 mg/dL Normal 8.4 - 10. 2 mg/dL AO ADM SS Chloride [Moles/Vol] 106 mmol/L Normal 98 - 10 7 mmol/L AO ADM SS CO2 [Moles/Vol] 28 mmol/L Normal 23 - 31 mmol/L AO ADM SS Creatinine [Mass/Vol] 0.80 mg/dL Normal 0.51 - 0.95 mg/dL AO ADM SS Electrolyte Balance 7.0 mEq/L Normal 4.0 - 15 .0 mEq/L AO ADM SS Eosinophil, Absolute 0.1 103/mcL Normal 0.0 - 0 .7 10^3/mcL AO Workflow SS Eosinophils/100 WBC (Bld) 1.3 % Normal 0.0 - 6.0 % AO Workflow SS Erythrocyte distribution width (RBC) [Ratio] 18.1 % High 11.5 - 15.5 % AO Workflow SS Estimated Glomerular Filtration Rate 79 ml/min/1.73sqm Invalid Interpretation Code AO Chemistry S Comment on above: Interpretive Data: Stages of Chronic Kidney Disease (CKD) Stage Description eGFR(ml/min/1.73 sq.m.) CKD 1 Normal kidney function or >=90 normal kindney function with possible kidney damage (ex. Proteinuria) CKD 2 Kidney damage with mild loss 60-89 of kidney function CKD 3a Mild to moderate loss of kidney 45-59 function CKD 3b Moderate to severe loss of 30-44 of kindey function CKD 4 Severe loss of kidney function 15-29 CKD 5 Kidney failure <15 Note: (go live 2024) the eGFR calculation was updated to the 2020 CKD-EPI creatinine equation without a race factor to calculate the eGFR results. Globulin 4.1 G/dL Normal 2.7 - 4.4 G/dL AO ADM SS Glucose [Mass/Vol] 183 mg/dL High 83 - 110 mg/dL AO ADM SS Hematocrit (Bld) [Volume fraction] 44.2 % Normal 34.0 - 46.0 % AO Workflow SS Hemoglobin (Bld) [Mass/Vol] 13.8 G/dL Normal 12.0 - 16.0 G/dL AO Workflow SS Lymphocytes (Bld) [#/Vol] 2.0 103/mcL Normal 0.9 - 4.3 10^3/mcL AO Workflow SS Lymphocytes/100 WBC (Bld) 25.0 % Normal 20.0 - 40.0 % AO Workflow SS MCH (RBC) [Entitic mass] 29.3 pg Normal 27.0 - 33.0 pg AO Workflow SS MCHC 31.2 G/dL Low 32.0 - 36.0 G/dL AO Workflow SS MCV (RBC) [Entitic vol] 93.7 fL Normal 80.0 - 99.0 fL AO Workflow SS Monocyte distribution width Auto (Bld) [Entitic vol] 17.54 1 Normal 0.00 - 20.00 AO Workflow SS Comment on above: Result Comment: For ED adult patients suspected of sepsis, MDW<=20.0 does not rule out sepsis or risk of sepsis Monocytes (Bld) [#/Vol] 0.9 103/mcL Normal 0.1 - 1.4 10^3/mcL AO Workflow SS Monocytes/100 WBC (Bld) 11.3 % Normal 2.0 - 13.0 % AO Workflow SS Natriuretic peptide.B prohormone N-Terminal [Mass/Vol] 9545 pg/mL High 0 - 125 pg/mL AO ADM SS Comment on above: Interpretive Data: N T-proBNP results of less than 300 pg/mL effectively rules out acute congestive heart failure with 99% negative predictive value. Neutrophils (Bld) [#/Vol] 5.0 103/mcL Normal 2.3 - 8.1 10^3/mcL AO Workflow SS Neutrophils/100 WBC (Bld) 61.4 % Normal 50.0 - 75.0 % AO Workflow SS Platelet mean volume (Bld) [Entitic vol] 8.3 fL Normal 6.6 - 10.5 fL AO Workflow SS Platelets (Bld) [#/Vol] 455 103/mcL High 150 - 450 10^3/mcL AO Workflow SS Potassium [Moles/Vol] 5.1 mmol/L Normal 3.5 - 5.1 mmol/L AO ADM SS Protein [Mass/Vol] 7.2 G/dL Normal 6.4 - 8.2 G/dL AO ADM SS RBC (Bld) [#/Vol] 4.71 106/mcL Normal 4.10 - 5.3 0 10^6/mcL AO Workflow SS Sodium [Moles/Vol] 141 mmol/L Normal 136 - 145 mmol/L AO ADM SS Troponin I.cardiac DL <= 0.01 ng/mL [Mass/Vol] 36 ng/L Normal 0 - 51 ng/L AO ADM SS Comment on above: Interpretive Data: H igh Sensitive Troponin I Reference Ranges: Female: 0-51 ng/L Male: 0-76 ng/L Testing performed on [employer] using a homogeneous sandwich chemiluminescent immunoassay based on [employer] technology. Urea nitrogen [Mass/Vol] 13 mg/dL Normal 7 - 18 mg/dL AO ADM SS Urea nitrogen/Creatinine [Mass ratio] 16 ratio Normal 7 - 27 ratio AO ADM SS WBC (Bld) [#/Vol] 8.2 103/mcL Normal 4.5 - 10.8 10^3/mcL AO Workflow SS LABORATORYOrdered By: Guillermo Baltazar on 06-12-2025 Appearance (U) Clear (06/12/25 8:01 PM) Normal Clear AH Auto Urine SS Bilirubin Ql (U) Negative (06/12/25 8:01 PM) Normal Neg-Trace AH Auto Urine SS Color (U) Yellow (06/12/25 8:01 PM) Normal AH Auto Urine SS Glucose Test strip (U) [Mass/Vol] Negative Normal Negative AH Auto Urine SS Hemoglobin Auto test strip (U) [Mass/Vol] Negative (06/12/25 8:01 PM) Normal Neg-Trace AH Auto Urine SS Ketones Ql (U) Negative Normal Neg-Trace AH Auto Urine SS UA Leuk Est Negative (06/12/25 8:01 PM) Normal Negative AH Auto Urine SS UA Nitrite Negative (06/12/25 8:01 PM) Normal Negative AH Auto Urine SS UA pH 5.0 (06/12/25 8:01 PM) Normal 5.0 - 8.0 AH Auto Urine SS UA Protein Negative Normal Negative AH Auto Urine SS UA Spec Grav <=1.005 *ABN* (06/12/25 8:01 PM) Invalid Interpretation Code 1.006-1.029 AH Auto Urine SS UA Specimen Type Clean Catch (06/12/25 8:01 PM) Normal AH Auto Urine SS UA Urobilinogen 0.2 E.U./dL Normal 0.2-1.0 AH Auto Urine SS LABORATORYOrdered By: Jensen Fay on 06-12-2025 FLUAV RNA IVANA+probe Ql (Resp) Negative (06/12/25 5:00 PM) Normal Negative AO Auto Urine SS FLUBV RNA IVANA+probe Ql (Resp) Negative (06/12/25 5:00 PM) Normal Negative AO Auto Urine SS RSV RNA IVANA+probe Ql (Resp) Negative (06/12/25 5:00 PM) Normal Negative AO Auto Urine SS SARS-CoV-2 (COVID-19) RNA IVANA+probe Ql (Resp) Negative 7 (06/12/25 5:00 PM) Normal Negative AO Auto Urine SS Comment on above: Interpretive Data: R esults from the Xpert Xpress CoV-2/Flu/RSV plus test should be correlated with the clinical history, epidemiological data, and other data available to the clinical evaluating the patient. Performance of the Xpert Xpress CoV-2/Flu/RSV plus test has only been established in nasopharyngeal swab specimen. Erroneous test results might occur from improper specimen collection, failure to follow the recommended sample collection, handling and storage procedures, technical error, or sample mix-up. False negative results may occur if a virus is present at a level below the analytical limit of detection. Viral nucleic acid may persist in vivo, independent of virus viability. Detection of analyte target(s) does not imply that the corresponding virus(es) are infectious or are the causative agents for clinical symptoms. Recent patient exposure to FluMist or other live attenuated influenza vaccines may cause inaccurate positive results. MGon 06-12-2025 Magnesium [Mass/Vol] 1.5 mg/dL Low 1.6-2.4 [facility] Comment on above: Performed By: #### T GOMEZ #### [facility] [address] [place] [address] PBNPon 06-12-2025 Natriuretic peptide B (Bld) [Mass/Vol] 8817 pg/mL High 0-900 [facility] Comment on above: Performed By: #### T GOMEZ #### [facility] [address] [place] [address] Natriuretic peptide B (Bld) [Mass/Vol] 9545 pg/mL High 0-125 [facility] Comment on above: Result Comment: NT-p roBNP results of less than 300 pg/mL effectively rules out acute congestive heart failure with 99% negative predictive value. Performed By: #### A DIFF, PBNP, TROPHS, CBC, GFR, MDW, ANEU, BMP #### [address] [address] [facility] High Sensitivity Troponin I 20 ng/L Normal 0-34 [facility] Comment on above: Result Comment: High Sensitive Troponin I Reference Ranges: Female: 0-34 ng/L Male: 0-54 ng/L Testing performed on [employer] IM analyzer using direct chemiluminescent technology. Performed By: #### T GOMEZ #### [place] [address] High Sensitivity Troponin I 22 ng/L Normal 0-34 [facility] Comment on above: Result Comment: High Sensitive Troponin I Reference Ranges: Female: 0-34 ng/L Male: 0-54 ng/L Testing performed on [employer] IM analyzer using direct chemiluminescent technology. Performed By: #### T GOMEZ #### [place] [address] High Sensitivity Troponin I 35 ng/L Normal 0-51 [facility] Comment on above: Result Comment: High Sensitive Troponin I Reference Ranges: Female: 0-51 ng/L Male: 0-76 ng/L Testing performed on [employer] using a homogeneous sandwich chemiluminescent immunoassay based on [employer] technology. Performed By: #### A DIFF, PBNP, TROPHS, CBC, GFR, MDW, ANEU, BMP #### [address] [address] High Sensitivity Troponin I 36 ng/L Normal 0-51 [facility] Comment on above: Result Comment: High Sensitive Troponin I Reference Ranges: Female: 0-51 ng/L Male: 0-76 ng/L Testing performed on [employer] using a homogeneous sandwich chemiluminescent immunoassay based on [employer] technology. Performed By: #### A DIFF, PBNP, TROPHS, CBC, GFR, MDW, ANEU, BMP #### [address] [address] UAon 06-12-2025 Color (U) Yellow Normal [facility] Comment on above: Performed By: #### T GOMEZ #### [place] [address] Glucose (U) [Mass/Vol] Negative Normal Negative [facility] Comment on above: Performed By: #### T GOMEZ #### [place] [id number] Ketones Ql (U) Negative Normal Neg-Trace [facility] Comment on above: Performed By: #### T GOMEZ #### [place] [address] UA Appear Clear Normal Clear [facility] Comment on above: Performed By: #### T GOMEZ #### [place] [address] UA Blood Negative Normal Neg-Trace [facility] Comment on above: Performed By: #### T GOMEZ #### [place] [address] UA Leuk Est Negative Normal Negative [facility] Comment on above: Performed By: #### T GOMEZ #### [place] [address] UA Nitrite Negative Normal Negative [facility] Comment on above: Performed By: #### T GOMEZ #### [place] [address] UA pH 5.0 Normal 5.0 - 8.0 [facility] Comment on above: Performed By: #### T GOMEZ #### [place] [address] UA Protein Negative Normal Negative [facility] Comment on above: Performed By: #### T GOMEZ #### [place] [address] UA Spec Grav <=1.005 Abnormal 1.006-1.029 [facility] Comment on above: Performed By: #### T GOMEZ #### [place] [address] UA Specimen Type Clean Catch Normal [facility] Comment on above: Performed By: #### T GOMEZ #### [place] [address] UA Urobilinogen 0.2 E.U./dL Normal 0.2-1.0 [facility] Comment on above: Performed By: #### T GOMEZ #### [facility] [address] [place] [address] Urobilinogen (U) [Mass/Vol] Negative Normal Neg-Trace [facility] Comment on above: Performed By: #### T GMOEZ #### [facility] [address] [place] [address] XR CHEST 1 VIEWon 06-12-2025 XR CHEST 1 VIEW ORIGINAL EXAMINATION: ONE XRAY VIEW OF THE CHEST 06/12/2025 3:45 pm COMPARISON: 05/16/2025 HISTORY: ORDERING SYSTEM PROVIDED HISTORY: Reason for Exam: SOB/cough/fever FINDINGS: Partially visualized cervical ACDF. Cardiomegaly. Aortic arch calcifications. Diffuse interstitial pattern with multifocal patchy ground-glass opacities right more than left. Minimal blunting of the left costophrenic angle which is resolved from prior. Right costophrenic angle is minimally blunted. No pneumothorax. Skeletal elements are unchanged. IMPRESSION: 1. Cardiomegaly. 2. Diffuse interstitial pattern and multifocal patchy ground-glass opacities right more than left. Findings may be related to pulmonary edema versus multifocal pneumonia. 3. Near complete resolution of trace left pleural effusion. 4. Mild blunting of the right costophrenic angle, pleural thickening/scarring versus trace right pleural fluid. Interpreted by: Igor Vance Preliminary Report By: Igor Vance Electronically signed By Igor Vance Dictated Date: 06/12/2025 3:50:34 PM Prelim Date: 06/12/2025 3:52:07 PM Sign Date: 06/12/2025 3:52:07 PM Ordering Provider: KRYS PICKETT [facility] .GFRon 05-21-2025 Estimated Glomerular Filtration Rate 79 ml/min/1.73sqm Normal [facility] Comment on above: Result Comment: Stages of Chronic Kidney Disease (CKD) Stage Description eGFR(ml/min/1.73 sq.m.) CKD 1 Normal kidney function or >=90 normal kindney function with possible kidney damage (ex. Proteinuria) CKD 2 Kidney damage with mild loss 60-89 of kidney function CKD 3a Mild to moderate loss of kidney 45-59 function CKD 3b Moderate to severe loss of 30-44 of kindey function CKD 4 Severe loss of kidney function 15-29 CKD 5 Kidney failure <15 Note: (go live 2024) the eGFR calculation was updated to the 2020 CKD-EPI creatinine equation without a race factor to calculate the eGFR results. Performed By: #### A DIFF, PBNP, TROPHS, CBC, GFR, MDW, ANEU, BMP #### [address] [address] BMPon 05-21-2025 BUN/Creatinine Ratio 32 ratio High 7-27 [facility] Comment on above: Performed By: #### A DIFF, PBNP, TROPHS, CBC, GFR, MDW, ANEU, BMP #### [address] [address] Calcium [Mass/Vol] 7.9 mg/dL Low 8.4-10.2 [facility] Comment on above: Performed By: #### A DIFF, PBNP, TROPHS, CBC, GFR, MDW, ANEU, BMP #### [address] [address] Chloride [Moles/Vol] 108 mmol/L High 98-107 [facility] Comment on above: Performed By: #### A DIFF, PBNP, TROPHS, CBC, GFR, MDW, ANEU, BMP #### [address] [address] CO2 [Moles/Vol] 35 mmol/L High 23-31 [facility] Comment on above: Performed By: #### A DIFF, PBNP, TROPHS, CBC, GFR, MDW, ANEU, BMP #### [address] [address] Creatinine [Mass/Vol] 0.80 mg/dL Normal 0.51-0.95 [facility] Comment on above: Performed By: #### A DIFF, PBNP, TROPHS, CBC, GFR, MDW, ANEU, BMP #### [address] [address] Electrolyte Balance 4.0 mEq/L Normal 4.0-15.0 [facility] Comment on above: Performed By: #### A DIFF, PBNP, TROPHS, CBC, GFR, MDW, ANEU, BMP #### [address] [address] Glucose [Mass/Vol] 124 mg/dL High 83-110 [facility] Comment on above: Performed By: #### A DIFF, PBNP, TROPHS, CBC, GFR, MDW, ANEU, BMP #### [address] [address] Potassium [Moles/Vol] 3.6 mmol/L Normal 3.5-5.1 [facility] Comment on above: Performed By: #### A DIFF, PBNP, TROPHS, CBC, GFR, MDW, ANEU, BMP #### [address] [address] Sodium [Moles/Vol] 147 mmol/L High 136-145 [facility] Comment on above: Performed By: #### A DIFF, PBNP, TROPHS, CBC, GFR, MDW, ANEU, BMP #### [address] [address] Urea nitrogen [Mass/Vol] 26 mg/dL High 7-18 [facility] Comment on above: Performed By: #### A DIFF, PBNP, TROPHS, CBC, GFR, MDW, ANEU, BMP #### [address] [address] LABORATORYOrdered By: SYSTEM SYSTEM on 05-21-2025 Calcium [Mass/Vol] 7.9 mg/dL Low 8.4 - 10. 2 mg/dL AO ADM SS Chloride [Moles/Vol] 108 mmol/L High 98 - 10 7 mmol/L AO ADM SS CO2 [Moles/Vol] 35 mmol/L High 23 - 31 mmol/L AO ADM SS Creatinine [Mass/Vol] 0.80 mg/dL Normal 0.51 - 0.95 mg/dL AO ADM SS Electrolyte Balance 4.0 mEq/L Normal 4.0 - 15 .0 mEq/L AO ADM SS Estimated Glomerular Filtration Rate 79 ml/min/1.73sqm Invalid Interpretation Code AO Chemistry S Comment on above: Interpretive Data: Stages of Chronic Kidney Disease (CKD) Stage Description eGFR(ml/min/1.73 sq.m.) CKD 1 Normal kidney function or >=90 normal kindney function with possible kidney damage (ex. Proteinuria) CKD 2 Kidney damage with mild loss 60-89 of kidney function CKD 3a Mild to moderate loss of kidney 45-59 function CKD 3b Moderate to severe loss of 30-44 of kindey function CKD 4 Severe loss of kidney function 15-29 CKD 5 Kidney failure <15 Note: (go live 2024) the eGFR calculation was updated to the 2020 CKD-EPI creatinine equation without a race factor to calculate the eGFR results. Glucose [Mass/Vol] 124 mg/dL High 83 - 110 mg/dL AO ADM SS Magnesium [Mass/Vol] 2.0 mg/dL Normal 1.8 - 2 .4 mg/dL AO ADM SS Potassium [Moles/Vol] 3.6 mmol/L Normal 3.5 - 5.1 mmol/L AO ADM SS Sodium [Moles/Vol] 147 mmol/L High 136 - 145 mmol/L AO ADM SS Urea nitrogen [Mass/Vol] 26 mg/dL High 7 - 18 mg/dL AO ADM SS Urea nitrogen/Creatinine [Mass ratio] 32 ratio High 7 - 27 ratio AO ADM SS MGon 05-21-2025 Magnesium [Mass/Vol] 2.0 mg/dL Normal 1.8-2.4 [facility] Comment on above: Performed By: #### A DIFF, PBNP, TROPHS, CBC, GFR, MDW, ANEU, BMP #### [address] [address] .Auto Diffon 05-20-2025 Basophil, Absolute 0.0 10 3/mcL Normal 0.0-0.3 [facility] Comment on above: Performed By: #### M RSAPCR #### [facility] [address] [place] [id number] #### CVFLURV #### [place] [address] [place], [place] [address] Basophils/100 WBC (Bld) 0.1 % Normal 0.0-2.5 A [facility] Comment on above: Performed By: #### M RSAPCR #### [place] [address] #### CVFLURV #### [address] [address] Eosinophil, Absolute 0.0 10 3/mcL Normal 0.0-0.7 [facility] Comment on above: Performed By: #### M RSAPCR #### [place] [address] #### CVFLURV #### [address] [address] Eosinophils/100 WBC (Bld) 0.2 % Normal 0.0-6.0 [facility] Comment on above: Performed By: #### M RSAPCR #### [place] [address] #### CVFLURV #### [address] [address] Lymphocyte, Absolute 2.0 10 3/mcL Normal 0.9-4.3 [facility] Comment on above: Performed By: #### M RSAPCR #### [place] [address] #### CVFLURV #### [address] [address] Lymphocytes/100 WBC (Bld) 25.3 % Normal 20.0-40.0 [facility] Comment on above: Performed By: #### M RSAPCR #### [place] [address] #### CVFLURV #### [address] [address] Monocyte, Absolute 1.0 10 3/mcL Normal 0.1-1.4 [facility] Comment on above: Performed By: #### M RSAPCR #### [place] [address] #### CVFLURV #### [address] [address] Monocytes/100 WBC (Bld) 13.5 % High 2.0-13.0 [facility] Comment on above: Performed By: #### M RSAPCR #### [place] [address] #### CVFLURV #### [address] [address] Neutrophils/100 WBC (Bld) 60.9 % Normal 50.0-75.0 [facility] Comment on above: Performed By: #### M RSAPCR #### [place] [address] #### CVFLURV #### [address] [address] .GFRon 05-20-2025 Estimated Glomerular Filtration Rate 76 ml/min/1.73sqm Normal [facility] Comment on above: Result Comment: Stages of Chronic Kidney Disease (CKD) Stage Description eGFR(ml/min/1.73 sq.m.) CKD 1 Normal kidney function or >=90 normal kindney function with possible kidney damage (ex. Proteinuria) CKD 2 Kidney damage with mild loss 60-89 of kidney function CKD 3a Mild to moderate loss of kidney 45-59 function CKD 3b Moderate to severe loss of 30-44 of kindey function CKD 4 Severe loss of kidney function 15-29 CKD 5 Kidney failure <15 Note: (go live 2024) the eGFR calculation was updated to the 2020 CKD-EPI creatinine equation without a race factor to calculate the eGFR results. Performed By: #### M RSAPCR #### [place] [address] #### CVFLURV #### [address] [address] .NEUABSon 05-20-2025 Neutrophil, Absolute 4.7 10 3/mcL Normal 2.3-8.1 [facility] Comment on above: Performed By: #### M RSAPCR #### [place] [address] #### CVFLURV #### [address] [address] BMPon 05-20-2025 BUN/Creatinine Ratio 33 ratio High 7-27 [facility] Comment on above: Performed By: #### M RSAPCR #### [place] [address] #### CVFLURV #### [address] [address] Calcium [Mass/Vol] 8.0 mg/dL Low 8.4-10.2 [facility] Comment on above: Performed By: #### M RSAPCR #### [place] [address] #### CVFLURV #### [address] [address] Chloride [Moles/Vol] 104 mmol/L Normal 98-107 [facility] Comment on above: Performed By: #### M RSAPCR #### [place] [address] #### CVFLURV #### [address] [address] CO2 [Moles/Vol] 38 mmol/L High 23-31 [facility] Comment on above: Performed By: #### M RSAPCR #### [place] [address] #### CVFLURV #### [address] [address] Creatinine [Mass/Vol] 0.83 mg/dL Normal 0.51-0.95 [facility] Comment on above: Performed By: #### M RSAPCR #### [place] [address] #### CVFLURV #### [address] [address] Electrolyte Balance 0.0 mEq/L Low 4.0-15.0 [facility] Comment on above: Performed By: #### M RSAPCR #### [place] [address] #### CVFLURV #### [address] [address] Glucose [Mass/Vol] 113 mg/dL High 83-110 [facility] Comment on above: Performed By: #### M RSAPCR #### [place] [address] #### CVFLURV #### [address] [address] Potassium [Moles/Vol] 4.3 mmol/L Normal 3.5-5.1 [facility] Comment on above: Performed By: #### M RSAPCR #### [place] [address] #### CVFLURV #### [address] [address] Sodium [Moles/Vol] 142 mmol/L Normal 136-145 [facility] Comment on above: Performed By: #### M RSAPCR #### [place] [address] #### CVFLURV #### [address] [address] Urea nitrogen [Mass/Vol] 27 mg/dL High 7-18 [facility] Comment on above: Performed By: #### M RSAPCR #### [place] [address] #### CVFLURV #### [address] [address] CBCon 05-20-2025 Erythrocyte distribution width (RBC) [Ratio] 17.4 % High 11.5-15.5 [facility] Comment on above: Performed By: #### M RSAPCR #### [place] [address] #### CVFLURV #### [address] [address] Hematocrit (Bld) [Volume fraction] 39.0 % Normal 34.0-46.0 [facility] Comment on above: Performed By: #### M RSAPCR #### [place] [address] #### CVFLURV #### [address] [address] Hgb 12.7 G/dL Normal 12.0-16.0 [facility] Comment on above: Performed By: #### M RSAPCR #### [place] [address] #### CVFLURV #### [address] [address] MCH (RBC) [Entitic mass] 29.8 pg Normal 27.0-33.0 [facility] Comment on above: Performed By: #### M RSAPCR #### [place] [address] #### CVFLURV #### [place] [address] MCHC 32.5 G/dL Normal 32.0-36.0 [facility] Comment on above: Performed By: #### M RSAPCR #### [place] [address] #### CVFLURV #### [place] [address] MCV (RBC) [Entitic vol] 91.8 fL Normal 80.0-99.0 [facility] Comment on above: Performed By: #### M RSAPCR #### [place] [address] #### CVFLURV #### [address] [address] Platelet 264 10 3/mcL Normal 150-450 [facility] Comment on above: Performed By: #### M RSAPCR #### [place] [address] #### CVFLURV #### [address] [address] Platelet mean volume (Bld) [Entitic vol] 9.1 fL Normal 6.6-10.5 [facility] Comment on above: Performed By: #### M RSAPCR #### [place] [address] #### CVFLURV #### [facility] [address] [place], [place] [address] RBC 4.25 10 6/mcL Normal 4.10-5.30 [facility] Comment on above: Performed By: #### M RSAPCR #### [address] [address] #### CVFLURV #### [address] [address] WBC 7.8 10 3/mcL Normal 4.5-10.8 [facility] Comment on above: Performed By: #### M RSAPCR #### [place] [address] #### CVFLURV #### [address] [address] LABORATORYOrdered By: SYSTEM SYSTEM on 05-20-2025 Basophils (Bld) [#/Vol] 0.0 103/mcL Normal 0.0 - 0.3 10^3/mcL AO Workflow SS Basophils/100 WBC (Bld) 0.1 % Normal 0.0 - 2.5 % AO Workflow SS Calcium [Mass/Vol] 8.0 mg/dL Low 8.4 - 10. 2 mg/dL AO ADM SS Chloride [Moles/Vol] 104 mmol/L Normal 98 - 10 7 mmol/L AO ADM SS CO2 [Moles/Vol] 38 mmol/L High 23 - 31 mmol/L AO ADM SS Creatinine [Mass/Vol] 0.83 mg/dL Normal 0.51 - 0.95 mg/dL AO ADM SS Electrolyte Balance 0.0 mEq/L Low 4.0 - 15 .0 mEq/L AO ADM SS Eosinophil, Absolute 0.0 103/mcL Normal 0.0 - 0 .7 10^3/mcL AO Workflow SS Eosinophils/100 WBC (Bld) 0.2 % Normal 0.0 - 6.0 % AO Workflow SS Erythrocyte distribution width (RBC) [Ratio] 17.4 % High 11.5 - 15.5 % AO Workflow SS Estimated Glomerular Filtration Rate 76 ml/min/1.73sqm Invalid Interpretation Code AO Chemistry S Comment on above: Interpretive Data: Stages of Chronic Kidney Disease (CKD) Stage Description eGFR(ml/min/1.73 sq.m.) CKD 1 Normal kidney function or >=90 normal kindney function with possible kidney damage (ex. Proteinuria) CKD 2 Kidney damage with mild loss 60-89 of kidney function CKD 3a Mild to moderate loss of kidney 45-59 function CKD 3b Moderate to severe loss of 30-44 of kindey function CKD 4 Severe loss of kidney function 15-29 CKD 5 Kidney failure <15 Note: (go live 2024) the eGFR calculation was updated to the 2020 CKD-EPI creatinine equation without a race factor to calculate the eGFR results. Glucose [Mass/Vol] 113 mg/dL High 83 - 110 mg/dL AO ADM SS Hematocrit (Bld) [Volume fraction] 39.0 % Normal 34.0 - 46.0 % AO Workflow SS Hemoglobin (Bld) [Mass/Vol] 12.7 G/dL Normal 12.0 - 16.0 G/dL AO Workflow SS Lymphocytes (Bld) [#/Vol] 2.0 103/mcL Normal 0.9 - 4.3 10^3/mcL AO Workflow SS Lymphocytes/100 WBC (Bld) 25.3 % Normal 20.0 - 40.0 % AO Workflow SS Magnesium [Mass/Vol] 1.9 mg/dL Normal 1.8 - 2 .4 mg/dL AO ADM SS MCH (RBC) [Entitic mass] 29.8 pg Normal 27.0 - 33.0 pg AO Workflow SS MCHC 32.5 G/dL Normal 32.0 - 36.0 G/dL AO Workflow SS MCV (RBC) [Entitic vol] 91.8 fL Normal 80.0 - 99.0 fL AO Workflow SS Monocytes (Bld) [#/Vol] 1.0 103/mcL Normal 0.1 - 1.4 10^3/mcL AO Workflow SS Monocytes/100 WBC (Bld) 13.5 % High 2.0 - 13.0 % AO Workflow SS Neutrophils (Bld) [#/Vol] 4.7 103/mcL Normal 2.3 - 8.1 10^3/mcL AO Workflow SS Neutrophils/100 WBC (Bld) 60.9 % Normal 50.0 - 75.0 % AO Workflow SS Platelet mean volume (Bld) [Entitic vol] 9.1 fL Normal 6.6 - 10.5 fL AO Workflow SS Platelets (Bld) [#/Vol] 264 103/mcL Normal 150 - 450 10^3/mcL AO Workflow SS Potassium [Moles/Vol] 4.3 mmol/L Normal 3.5 - 5.1 mmol/L AO ADM SS RBC (Bld) [#/Vol] 4.25 106/mcL Normal 4.10 - 5.3 0 10^6/mcL AO Workflow SS Sodium [Moles/Vol] 142 mmol/L Normal 136 - 145 mmol/L AO ADM SS Urea nitrogen [Mass/Vol] 27 mg/dL High 7 - 18 mg/dL AO ADM SS Urea nitrogen/Creatinine [Mass ratio] 33 ratio High 7 - 27 ratio AO ADM SS WBC (Bld) [#/Vol] 7.8 103/mcL Normal 4.5 - 10.8 10^3/mcL AO Workflow SS MGon 05-20-2025 Magnesium [Mass/Vol] 1.9 mg/dL Normal 1.8-2.4 [facility] Comment on above: Performed By: #### M RSAPCR #### [place] [address] #### CVFLURV #### [address] [address] MYCOon 05-20-2025 Mycoplasma IgG Positive Normal [facility] Comment on above: Result Comment: INTE RPRETATION OF MYCOPLASMA IgG BY EIA: Negative: No detectable M. pneumoniae IgG antibody. Positive: Mycoplasma pneumoniae IgG antibody Detected. Equivocal: Equivocal for IgG antibodies to Mycoplasma pneumoniae. Suggest repeat testing in 10-14 days. Performed By: #### M RSAPCR #### [place] [id number] #### CVFLURV #### [address] [address] .Auto Diffon 05-19-2025 Basophil, Absolute 0.0 10 3/mcL Normal 0.0-0.3 [facility] Comment on above: Performed By: #### A DIFF, PBNP, TROPHS, CBC, GFR, MDW, ANEU, BMP #### [address] [address] Basophils/100 WBC (Bld) 0.3 % Normal 0.0-2.5 A [facility] Comment on above: Performed By: #### A DIFF, PBNP, TROPHS, CBC, GFR, MDW, ANEU, BMP #### [address] [address] Eosinophil, Absolute 0.0 10 3/mcL Normal 0.0-0.7 [facility] Comment on above: Performed By: #### A DIFF, PBNP, TROPHS, CBC, GFR, MDW, ANEU, BMP #### [address] [address] Eosinophils/100 WBC (Bld) 0.2 % Normal 0.0-6.0 [facility] Comment on above: Performed By: #### A DIFF, PBNP, TROPHS, CBC, GFR, MDW, ANEU, BMP #### [address] [address] Lymphocyte, Absolute 1.8 10 3/mcL Normal 0.9-4.3 [facility] Comment on above: Performed By: #### A DIFF, PBNP, TROPHS, CBC, GFR, MDW, ANEU, BMP #### [address] [address] Lymphocytes/100 WBC (Bld) 24.9 % Normal 20.0-40.0 [facility] Comment on above: Performed By: #### A DIFF, PBNP, TROPHS, CBC, GFR, MDW, ANEU, BMP #### [address] [address] Monocyte, Absolute 1.0 10 3/mcL Normal 0.1-1.4 [facility] Comment on above: Performed By: #### A DIFF, PBNP, TROPHS, CBC, GFR, MDW, ANEU, BMP #### [address] [address] Monocytes/100 WBC (Bld) 13.5 % High 2.0-13.0 [facility] Comment on above: Performed By: #### A DIFF, PBNP, TROPHS, CBC, GFR, MDW, ANEU, BMP #### [address] [address] Neutrophils/100 WBC (Bld) 61.1 % Normal 50.0-75.0 [facility] Comment on above: Performed By: #### A DIFF, PBNP, TROPHS, CBC, GFR, MDW, ANEU, BMP #### [place] [address] [place], [place] [address] .GFRon 05-19-2025 Estimated Glomerular Filtration Rate 70 ml/min/1.73sqm Normal [facility] Comment on above: Result Comment: Stages of Chronic Kidney Disease (CKD) Stage Description eGFR(ml/min/1.73 sq.m.) CKD 1 Normal kidney function or >=90 normal kindney function with possible kidney damage (ex. Proteinuria) CKD 2 Kidney damage with mild loss 60-89 of kidney function CKD 3a Mild to moderate loss of kidney 45-59 function CKD 3b Moderate to severe loss of 30-44 of kindey function CKD 4 Severe loss of kidney function 15-29 CKD 5 Kidney failure <15 Note: (go live 2024) the eGFR calculation was updated to the 2020 CKD-EPI creatinine equation without a race factor to calculate the eGFR results. Performed By: #### A DIFF, PBNP, TROPHS, CBC, GFR, MDW, ANEU, BMP #### [place] [address] [place], [place] [address] .NEUABSon 05-19-2025 Neutrophil, Absolute 4.3 10 3/mcL Normal 2.3-8.1 [facility] Comment on above: Performed By: #### A DIFF, PBNP, TROPHS, CBC, GFR, MDW, ANEU, BMP #### [place] [address] [place], [place] [address] BMPon 05-19-2025 BUN/Creatinine Ratio 31 ratio High 7-27 [facility] Comment on above: Performed By: #### A DIFF, PBNP, TROPHS, CBC, GFR, MDW, ANEU, BMP #### [place] [address] [place], [place] [address] Calcium [Mass/Vol] 8.3 mg/dL Low 8.4-10.2 [facility] Comment on above: Performed By: #### A DIFF, PBNP, TROPHS, CBC, GFR, MDW, ANEU, BMP #### [address] [address] Chloride [Moles/Vol] 106 mmol/L Normal 98-107 [facility] Comment on above: Performed By: #### A DIFF, PBNP, TROPHS, CBC, GFR, MDW, ANEU, BMP #### [address] [address] CO2 [Moles/Vol] 41 mmol/L Critically abnormal 23-31 [facility] Comment on above: Performed By: #### A DIFF, PBNP, TROPHS, CBC, GFR, MDW, ANEU, BMP #### [address] [address] Creatinine [Mass/Vol] 0.89 mg/dL Normal 0.51-0.95 [facility] Comment on above: Performed By: #### A DIFF, PBNP, TROPHS, CBC, GFR, MDW, ANEU, BMP #### [address] [address] Electrolyte Balance -1.0 mEq/L Low 4.0-15.0 [facility] Comment on above: Performed By: #### A DIFF, PBNP, TROPHS, CBC, GFR, MDW, ANEU, BMP #### [address] [address] Glucose [Mass/Vol] 108 mg/dL Normal 83-110 [facility] Comment on above: Performed By: #### A DIFF, PBNP, TROPHS, CBC, GFR, MDW, ANEU, BMP #### [address] [address] Potassium [Moles/Vol] 3.9 mmol/L Normal 3.5-5.1 [facility] Comment on above: Performed By: #### A DIFF, PBNP, TROPHS, CBC, GFR, MDW, ANEU, BMP #### [address] [address] Sodium [Moles/Vol] 146 mmol/L High 136-145 [facility] Comment on above: Performed By: #### A DIFF, PBNP, TROPHS, CBC, GFR, MDW, ANEU, BMP #### [place] [address] Urea nitrogen [Mass/Vol] 28 mg/dL High 7-18 [facility] Comment on above: Performed By: #### A DIFF, PBNP, TROPHS, CBC, GFR, MDW, ANEU, BMP #### [place] [address] CBCon 05-19-2025 Erythrocyte distribution width (RBC) [Ratio] 17.8 % High 11.5-15.5 [facility] Comment on above: Performed By: #### A DIFF, PBNP, TROPHS, CBC, GFR, MDW, ANEU, BMP #### [place] [address] Hematocrit (Bld) [Volume fraction] 39.7 % Normal 34.0-46.0 [facility] Comment on above: Performed By: #### A DIFF, PBNP, TROPHS, CBC, GFR, MDW, ANEU, BMP #### [place] [address] Hgb 12.7 G/dL Normal 12.0-16.0 [facility] Comment on above: Performed By: #### A DIFF, PBNP, TROPHS, CBC, GFR, MDW, ANEU, BMP #### [place] [address] MCH (RBC) [Entitic mass] 29.3 pg Normal 27.0-33.0 [facility] Comment on above: Performed By: #### A DIFF, PBNP, TROPHS, CBC, GFR, MDW, ANEU, BMP #### [place] [address] MCHC 32.1 G/dL Normal 32.0-36.0 [facility] Comment on above: Performed By: #### A DIFF, PBNP, TROPHS, CBC, GFR, MDW, ANEU, BMP #### [address] [address] MCV (RBC) [Entitic vol] 91.5 fL Normal 80.0-99.0 A [facility] Comment on above: Performed By: #### A DIFF, PBNP, TROPHS, CBC, GFR, MDW, ANEU, BMP #### [address] [address] Platelet 261 10 3/mcL Normal 150-450 [facility] Comment on above: Performed By: #### A DIFF, PBNP, TROPHS, CBC, GFR, MDW, ANEU, BMP #### [place] [address] Platelet mean volume (Bld) [Entitic vol] 9.1 fL Normal 6.6-10.5 [facility] Comment on above: Performed By: #### A DIFF, PBNP, TROPHS, CBC, GFR, MDW, ANEU, BMP #### [place] [address] RBC 4.33 10 6/mcL Normal 4.10-5.30 [facility] Comment on above: Performed By: #### A DIFF, PBNP, TROPHS, CBC, GFR, MDW, ANEU, BMP #### [place] [address] WBC 7.0 10 3/mcL Normal 4.5-10.8 [facility] Comment on above: Performed By: #### A DIFF, PBNP, TROPHS, CBC, GFR, MDW, ANEU, BMP #### [address] [address] LABORATORYOrdered By: SYSTEM SYSTEM on 05-19-2025 Basophils (Bld) [#/Vol] 0.0 103/mcL Normal 0.0 - 0.3 10^3/mcL AO Workflow SS Basophils/100 WBC (Bld) 0.3 % Normal 0.0 - 2.5 % AO Workflow SS Calcium [Mass/Vol] 8.3 mg/dL Low 8.4 - 10. 2 mg/dL AO ADM SS Chloride [Moles/Vol] 106 mmol/L Normal 98 - 10 7 mmol/L AO ADM SS CO2 [Moles/Vol] 41 mmol/L Invalid Interpretation Code 23 - 31 mmol/L AO ADM SS Creatinine [Mass/Vol] 0.89 mg/dL Normal 0.51 - 0.95 mg/dL AO ADM SS Electrolyte Balance -1.0 mEq/L Low 4.0 - 15 .0 mEq/L AO ADM SS Eosinophil, Absolute 0.0 103/mcL Normal 0.0 - 0 .7 10^3/mcL AO Workflow SS Eosinophils/100 WBC (Bld) 0.2 % Normal 0.0 - 6.0 % AO Workflow SS Erythrocyte distribution width (RBC) [Ratio] 17.8 % High 11.5 - 15.5 % AO Workflow SS Estimated Glomerular Filtration Rate 70 ml/min/1.73sqm Invalid Interpretation Code AO Chemistry S Comment on above: Interpretive Data: Stages of Chronic Kidney Disease (CKD) Stage Description eGFR(ml/min/1.73 sq.m.) CKD 1 Normal kidney function or >=90 normal kindney function with possible kidney damage (ex. Proteinuria) CKD 2 Kidney damage with mild loss 60-89 of kidney function CKD 3a Mild to moderate loss of kidney 45-59 function CKD 3b Moderate to severe loss of 30-44 of kindey function CKD 4 Severe loss of kidney function 15-29 CKD 5 Kidney failure <15 Note: (go live 2024) the eGFR calculation was updated to the 2020 CKD-EPI creatinine equation without a race factor to calculate the eGFR results. Glucose [Mass/Vol] 108 mg/dL Normal 83 - 110 mg/dL AO ADM SS Hematocrit (Bld) [Volume fraction] 39.7 % Normal 34.0 - 46.0 % AO Workflow SS Hemoglobin (Bld) [Mass/Vol] 12.7 G/dL Normal 12.0 - 16.0 G/dL AO Workflow SS Lymphocytes (Bld) [#/Vol] 1.8 103/mcL Normal 0.9 - 4.3 10^3/mcL AO Workflow SS Lymphocytes/100 WBC (Bld) 24.9 % Normal 20.0 - 40.0 % AO Workflow SS Magnesium [Mass/Vol] 1.9 mg/dL Normal 1.8 - 2 .4 mg/dL AO ADM SS MCH (RBC) [Entitic mass] 29.3 pg Normal 27.0 - 33.0 pg AO Workflow SS MCHC 32.1 G/dL Normal 32.0 - 36.0 G/dL AO Workflow SS MCV (RBC) [Entitic vol] 91.5 fL Normal 80.0 - 99.0 fL AO Workflow SS Monocytes (Bld) [#/Vol] 1.0 103/mcL Normal 0.1 - 1.4 10^3/mcL AO Workflow SS Monocytes/100 WBC (Bld) 13.5 % High 2.0 - 13.0 % AO Workflow SS Natriuretic peptide.B prohormone N-Terminal [Mass/Vol] 4502 pg/mL High 0 - 125 pg/mL AO ADM SS Comment on above: Interpretive Data: N T-proBNP results of less than 300 pg/mL effectively rules out acute congestive heart failure with 99% negative predictive value. Neutrophils (Bld) [#/Vol] 4.3 103/mcL Normal 2.3 - 8.1 10^3/mcL AO Workflow SS Neutrophils/100 WBC (Bld) 61.1 % Normal 50.0 - 75.0 % AO Workflow SS Platelet mean volume (Bld) [Entitic vol] 9.1 fL Normal 6.6 - 10.5 fL AO Workflow SS Platelets (Bld) [#/Vol] 261 103/mcL Normal 150 - 450 10^3/mcL AO Workflow SS Potassium [Moles/Vol] 3.9 mmol/L Normal 3.5 - 5.1 mmol/L AO ADM SS RBC (Bld) [#/Vol] 4.33 106/mcL Normal 4.10 - 5.3 0 10^6/mcL AO Workflow SS Sodium [Moles/Vol] 146 mmol/L High 136 - 145 mmol/L AO ADM SS Urea nitrogen [Mass/Vol] 28 mg/dL High 7 - 18 mg/dL AO ADM SS Urea nitrogen/Creatinine [Mass ratio] 31 ratio High 7 - 27 ratio AO ADM SS WBC (Bld) [#/Vol] 7.0 103/mcL Normal 4.5 - 10.8 10^3/mcL AO Workflow SS MGon 05-19-2025 Magnesium [Mass/Vol] 1.9 mg/dL Normal 1.8-2.4 [facility] Comment on above: Performed By: #### A DIFF, PBNP, TROPHS, CBC, GFR, MDW, ANEU, BMP #### [address] [address] PBNPon 05-19-2025 Natriuretic peptide B (Bld) [Mass/Vol] 4502 pg/mL High 0-125 [facility] Comment on above: Result Comment: NT-p roBNP results of less than 300 pg/mL effectively rules out acute congestive heart failure with 99% negative predictive value. Performed By: #### A DIFF, PBNP, TROPHS, CBC, GFR, MDW, ANEU, BMP #### [address] [address] .Auto Diffon 05-18-2025 Basophil, Absolute 0.0 10 3/mcL Normal 0.0-0.3 [facility] Comment on above: Performed By: #### A DIFF, PBNP, TROPHS, CBC, GFR, MDW, ANEU, BMP #### [address] [address] Basophils/100 WBC (Bld) 0.2 % Normal 0.0-2.5 [facility] Comment on above: Performed By: #### A DIFF, PBNP, TROPHS, CBC, GFR, MDW, ANEU, BMP #### [address] [address] Eosinophil, Absolute 0.0 10 3/mcL Normal 0.0-0.7 [facility] Comment on above: Performed By: #### A DIFF, PBNP, TROPHS, CBC, GFR, MDW, ANEU, BMP #### [address] [address] Eosinophils/100 WBC (Bld) 0.0 % Normal 0.0-6.0 [facility] Comment on above: Performed By: #### A DIFF, PBNP, TROPHS, CBC, GFR, MDW, ANEU, BMP #### [address] [address] Lymphocyte, Absolute 0.7 10 3/mcL Low 0.9-4.3 [facility] Comment on above: Performed By: #### A DIFF, PBNP, TROPHS, CBC, GFR, MDW, ANEU, BMP #### [address] [address] Lymphocytes/100 WBC (Bld) 7.9 % Low 20.0-40.0 [facility] Comment on above: Performed By: #### A DIFF, PBNP, TROPHS, CBC, GFR, MDW, ANEU, BMP #### [place] [place], [place] [address] Monocyte, Absolute 1.0 10 3/mcL Normal 0.1-1.4 [facility] Comment on above: Performed By: #### A DIFF, PBNP, TROPHS, CBC, GFR, MDW, ANEU, BMP #### [address] [address] Monocytes/100 WBC (Bld) 11.5 % Normal 2.0-13.0 [facility] Comment on above: Performed By: #### A DIFF, PBNP, TROPHS, CBC, GFR, MDW, ANEU, BMP #### [address] [address] Neutrophils/100 WBC (Bld) 80.4 % High 50.0-75.0 [facility] Comment on above: Performed By: #### A DIFF, PBNP, TROPHS, CBC, GFR, MDW, ANEU, BMP #### [address] [address] .GFRon 05-18-2025 Estimated Glomerular Filtration Rate 69 ml/min/1.73sqm Normal [facility] Comment on above: Result Comment: Stages of Chronic Kidney Disease (CKD) Stage Description eGFR(ml/min/1.73 sq.m.) CKD 1 Normal kidney function or >=90 normal kindney function with possible kidney damage (ex. Proteinuria) CKD 2 Kidney damage with mild loss 60-89 of kidney function CKD 3a Mild to moderate loss of kidney 45-59 function CKD 3b Moderate to severe loss of 30-44 of kindey function CKD 4 Severe loss of kidney function 15-29 CKD 5 Kidney failure <15 Note: (go live 2024) the eGFR calculation was updated to the 2020 CKD-EPI creatinine equation without a race factor to calculate the eGFR results. Performed By: #### A DIFF, PBNP, TROPHS, CBC, GFR, MDW, ANEU, BMP #### [address] [address] .NEUABSon 05-18-2025 Neutrophil, Absolute 7.0 10 3/mcL Normal 2.3-8.1 [facility] Comment on above: Performed By: #### A DIFF, PBNP, TROPHS, CBC, GFR, MDW, ANEU, BMP #### [address] [address] BMPon 05-18-2025 BUN/Creatinine Ratio 29 ratio High 7-27 [facility] Comment on above: Performed By: #### A DIFF, PBNP, TROPHS, CBC, GFR, MDW, ANEU, BMP #### [address] [address] Calcium [Mass/Vol] 8.2 mg/dL Low 8.4-10.2 [facility] Comment on above: Performed By: #### A DIFF, PBNP, TROPHS, CBC, GFR, MDW, ANEU, BMP #### [address] [address] Chloride [Moles/Vol] 106 mmol/L Normal 98-107 [facility] Comment on above: Performed By: #### A DIFF, PBNP, TROPHS, CBC, GFR, MDW, ANEU, BMP #### [address] [address] CO2 [Moles/Vol] 37 mmol/L High 23-31 [facility] Comment on above: Performed By: #### A DIFF, PBNP, TROPHS, CBC, GFR, MDW, ANEU, BMP #### [address] [address] Creatinine [Mass/Vol] 0.90 mg/dL Normal 0.51-0.95 [facility] Comment on above: Performed By: #### A DIFF, PBNP, TROPHS, CBC, GFR, MDW, ANEU, BMP #### [address] [address] Electrolyte Balance 3.0 mEq/L Low 4.0-15.0 [facility] Comment on above: Performed By: #### A DIFF, PBNP, TROPHS, CBC, GFR, MDW, ANEU, BMP #### [address] [address] Glucose [Mass/Vol] 130 mg/dL High 83-110 [facility] Comment on above: Performed By: #### A DIFF, PBNP, TROPHS, CBC, GFR, MDW, ANEU, BMP #### [address] [address] Potassium [Moles/Vol] 4.1 mmol/L Normal 3.5-5.1 [facility] Comment on above: Performed By: #### A DIFF, PBNP, TROPHS, CBC, GFR, MDW, ANEU, BMP #### [address] [address] Sodium [Moles/Vol] 146 mmol/L High 136-145 [facility] Comment on above: Performed By: #### A DIFF, PBNP, TROPHS, CBC, GFR, MDW, ANEU, BMP #### [address] [address] Urea nitrogen [Mass/Vol] 26 mg/dL High 7-18 [facility] Comment on above: Performed By: #### A DIFF, PBNP, TROPHS, CBC, GFR, MDW, ANEU, BMP #### [address] [address] CBCon 05-18-2025 Erythrocyte distribution width (RBC) [Ratio] 17.9 % High 11.5-15.5 [facility] Comment on above: Performed By: #### A DIFF, PBNP, TROPHS, CBC, GFR, MDW, ANEU, BMP #### [address] [address] Hematocrit (Bld) [Volume fraction] 37.7 % Normal 34.0-46.0 [facility] Comment on above: Performed By: #### A DIFF, PBNP, TROPHS, CBC, GFR, MDW, ANEU, BMP #### [address] [address] Hgb 12.5 G/dL Normal 12.0-16.0 [facility] Comment on above: Performed By: #### A DIFF, PBNP, TROPHS, CBC, GFR, MDW, ANEU, BMP #### [place] [address] MCH (RBC) [Entitic mass] 30.4 pg Normal 27.0-33.0 [facility] Comment on above: Performed By: #### A DIFF, PBNP, TROPHS, CBC, GFR, MDW, ANEU, BMP #### [place] [address] MCHC 33.2 G/dL Normal 32.0-36.0 [facility] Comment on above: Performed By: #### A DIFF, PBNP, TROPHS, CBC, GFR, MDW, ANEU, BMP #### [address] [address] MCV (RBC) [Entitic vol] 91.4 fL Normal 80.0-99.0 [facility] Comment on above: Performed By: #### A DIFF, PBNP, TROPHS, CBC, GFR, MDW, ANEU, BMP #### [address] [address] Platelet 275 10 3/mcL Normal 150-450 [facility] Comment on above: Performed By: #### A DIFF, PBNP, TROPHS, CBC, GFR, MDW, ANEU, BMP #### [address] [address] Platelet mean volume (Bld) [Entitic vol] 9.3 fL Normal 6.6-10.5 [facility] Comment on above: Performed By: #### A DIFF, PBNP, TROPHS, CBC, GFR, MDW, ANEU, BMP #### [place] [address] RBC 4.13 10 6/mcL Normal 4.10-5.30 [facility] Comment on above: Performed By: #### A DIFF, PBNP, TROPHS, CBC, GFR, MDW, ANEU, BMP #### [place] [address] [place], [place] [address] WBC 8.7 10 3/mcL Normal 4.5-10.8 [facility] Comment on above: Performed By: #### A DIFF, PBNP, TROPHS, CBC, GFR, MDW, ANEU, BMP #### [facility] [address] [place], [place] [address] LABORATORYOrdered By: SYSTEM SYSTEM on 05-18-2025 Basophils (Bld) [#/Vol] 0.0 103/mcL Normal 0.0 - 0.3 10^3/mcL AO Workflow SS Basophils/100 WBC (Bld) 0.2 % Normal 0.0 - 2.5 % AO Workflow SS Eosinophil, Absolute 0.0 103/mcL Normal 0.0 - 0 .7 10^3/mcL AO Workflow SS Eosinophils/100 WBC (Bld) 0.0 % Normal 0.0 - 6.0 % AO Workflow SS Erythrocyte distribution width (RBC) [Ratio] 17.9 % High 11.5 - 15.5 % AO Workflow SS Hematocrit (Bld) [Volume fraction] 37.7 % Normal 34.0 - 46.0 % AO Workflow SS Hemoglobin (Bld) [Mass/Vol] 12.5 G/dL Normal 12.0 - 16.0 G/dL AO Workflow SS Lymphocytes (Bld) [#/Vol] 0.7 103/mcL Low 0.9 - 4.3 10^3/mcL AO Workflow SS Lymphocytes/100 WBC (Bld) 7.9 % Low 20.0 - 40.0 % AO Workflow SS MCH (RBC) [Entitic mass] 30.4 pg Normal 27.0 - 33.0 pg AO Workflow SS MCHC 33.2 G/dL Normal 32.0 - 36.0 G/dL AO Workflow SS MCV (RBC) [Entitic vol] 91.4 fL Normal 80.0 - 99.0 fL AO Workflow SS Monocytes (Bld) [#/Vol] 1.0 103/mcL Normal 0.1 - 1.4 10^3/mcL AO Workflow SS Monocytes/100 WBC (Bld) 11.5 % Normal 2.0 - 13.0 % AO Workflow SS Natriuretic peptide.B prohormone N-Terminal [Mass/Vol] 6422 pg/mL High 0 - 125 pg/mL AO ADM SS Comment on above: Interpretive Data: N T-proBNP results of less than 300 pg/mL effectively rules out acute congestive heart failure with 99% negative predictive value. Neutrophils (Bld) [#/Vol] 7.0 103/mcL Normal 2.3 - 8.1 10^3/mcL AO Workflow SS Neutrophils/100 WBC (Bld) 80.4 % High 50.0 - 75.0 % AO Workflow SS Platelet mean volume (Bld) [Entitic vol] 9.3 fL Normal 6.6 - 10.5 fL AO Workflow SS Platelets (Bld) [#/Vol] 275 103/mcL Normal 150 - 450 10^3/mcL AO Workflow SS RBC (Bld) [#/Vol] 4.13 106/mcL Normal 4.10 - 5.3 0 10^6/mcL AO Workflow SS WBC (Bld) [#/Vol] 8.7 103/mcL Normal 4.5 - 10.8 10^3/mcL AO Workflow SS MGon 05-18-2025 Magnesium [Mass/Vol] 1.9 mg/dL Normal 1.8-2.4 [facility] Comment on above: Performed By: #### A DIFF, PBNP, TROPHS, CBC, GFR, MDW, ANEU, BMP #### [address] [address] MYCOon 05-18-2025 Mycoplasma IgM Negative Normal [facility] Comment on above: Result Comment: INTE RPRETATION OF MYCOPLASMA IgM: Negative: IgM to M. pneumoniae Absent, or at levels below the assay limit of detection. Positive: IgM to M. pneumoniae Present. Invalid: Test results are invalid due to invalid internal control. Assay was performed in duplicate. Repeat testing is suggested if clinically indicated. Performed By: #### M RSAPCR #### [facility] [address] [place] [address] #### CVFLURV #### [address] [address] PBNPon 05-18-2025 Natriuretic peptide B (Bld) [Mass/Vol] 6422 pg/mL High 0-125 [facility] Comment on above: Result Comment: NT-p roBNP results of less than 300 pg/mL effectively rules out acute congestive heart failure with 99% negative predictive value. Performed By: #### A DIFF, PBNP, TROPHS, CBC, GFR, MDW, ANEU, BMP #### [address] [address] .Auto Diffon 05-17-2025 Basophil, Absolute 0.0 10 3/mcL Normal 0.0-0.3 [facility] Comment on above: Performed By: #### M RSAPCR #### [place] [address] #### CVFLURV #### [address] [address] Basophils/100 WBC (Bld) 0.3 % Normal 0.0-2.5 [facility] Comment on above: Performed By: #### M RSAPCR #### [place] [address] #### CVFLURV #### [address] [address] Eosinophil, Absolute 0.0 10 3/mcL Normal 0.0-0.7 [facility] Comment on above: Performed By: #### M RSAPCR #### [place] [address] #### CVFLURV #### [address] [address] Eosinophils/100 WBC (Bld) 0.0 % Normal 0.0-6.0 [facility] Comment on above: Performed By: #### M RSAPCR #### [place] [address] #### CVFLURV #### [address] [address] Lymphocyte, Absolute 0.3 10 3/mcL Low 0.9-4.3 [facility] Comment on above: Performed By: #### M RSAPCR #### [place] [address] #### CVFLURV #### [address] [address] Lymphocytes/100 WBC (Bld) 6.4 % Low 20.0-40.0 [facility] Comment on above: Performed By: #### M RSAPCR #### [place] [address] #### CVFLURV #### [address] [address] Monocyte, Absolute 0.1 10 3/mcL Normal 0.1-1.4 [facility] Comment on above: Performed By: #### M RSAPCR #### [place] [address] #### CVFLURV #### [address] [address] Monocytes/100 WBC (Bld) 1.5 % Low 2.0-13.0 [facility] Comment on above: Performed By: #### M RSAPCR #### [place] [address] #### CVFLURV #### [address] [address] Neutrophils/100 WBC (Bld) 91.8 % High 50.0-75.0 [facility] Comment on above: Performed By: #### M RSAPCR #### [place] [address] #### CVFLURV #### [address] [address] .GFRon 05-17-2025 Estimated Glomerular Filtration Rate 66 ml/min/1.73sqm Normal [facility] Comment on above: Result Comment: Stages of Chronic Kidney Disease (CKD) Stage Description eGFR(ml/min/1.73 sq.m.) CKD 1 Normal kidney function or >=90 normal kindney function with possible kidney damage (ex. Proteinuria) CKD 2 Kidney damage with mild loss 60-89 of kidney function CKD 3a Mild to moderate loss of kidney 45-59 function CKD 3b Moderate to severe loss of 30-44 of kindey function CKD 4 Severe loss of kidney function 15-29 CKD 5 Kidney failure <15 Note: (go live 2024) the eGFR calculation was updated to the 2020 CKD-EPI creatinine equation without a race factor to calculate the eGFR results. Performed By: #### M RSAPCR #### [place] [address] #### CVFLURV #### [address] [address] .NEUABSon 05-17-2025 Neutrophil, Absolute 3.6 10 3/mcL Normal 2.3-8.1 [facility] Comment on above: Performed By: #### M RSAPCR #### [place] [address] #### CVFLURV #### [address] [address] BMPon 05-17-2025 BUN/Creatinine Ratio 17 ratio Normal 7-27 [facility] Comment on above: Performed By: #### M RSAPCR #### [place] [address] #### CVFLURV #### [address] [address] Calcium [Mass/Vol] 8.0 mg/dL Low 8.4-10.2 [facility] Comment on above: Performed By: #### M RSAPCR #### [place] [address] #### CVFLURV #### [address] [address] Chloride [Moles/Vol] 107 mmol/L Normal 98-107 [facility] Comment on above: Performed By: #### M RSAPCR #### [place] [address] #### CVFLURV #### [address] [address] CO2 [Moles/Vol] 39 mmol/L High 23-31 [facility] Comment on above: Performed By: #### M RSAPCR #### [place] [address] #### CVFLURV #### [address] [address] Creatinine [Mass/Vol] 0.93 mg/dL Normal 0.51-0.95 [facility] Comment on above: Performed By: #### M RSAPCR #### [place] [address] #### CVFLURV #### [address] [address] Electrolyte Balance 2.0 mEq/L Low 4.0-15.0 [facility] Comment on above: Performed By: #### M RSAPCR #### [place] [address] #### CVFLURV #### [address] [address] Glucose [Mass/Vol] 174 mg/dL High 83-110 [facility] Comment on above: Performed By: #### M RSAPCR #### [place] [address] #### CVFLURV #### [address] [address] Potassium [Moles/Vol] 4.6 mmol/L Normal 3.5-5.1 [facility] Comment on above: Performed By: #### M RSAPCR #### [place] [address] #### CVFLURV #### [address] [address] Sodium [Moles/Vol] 148 mmol/L High 136-145 [facility] Comment on above: Performed By: #### M RSAPCR #### [place] [address] #### CVFLURV #### [address] [address] Urea nitrogen [Mass/Vol] 16 mg/dL Normal 7-18 [facility] Comment on above: Performed By: #### M RSAPCR #### [place] [address] #### CVFLURV #### [place] [address] CBCon 05-17-2025 Erythrocyte distribution width (RBC) [Ratio] 17.8 % High 11.5-15.5 [facility] Comment on above: Performed By: #### M RSAPCR #### [place] [address] #### CVFLURV #### [place] [address] Hematocrit (Bld) [Volume fraction] 38.0 % Normal 34.0-46.0 [facility] Comment on above: Performed By: #### M RSAPCR #### [place] [address] #### CVFLURV #### [place] [address] Hgb 12.3 G/dL Normal 12.0-16.0 [facility] Comment on above: Performed By: #### M RSAPCR #### [place] [address] #### CVFLURV #### [place] [address] MCH (RBC) [Entitic mass] 29.7 pg Normal 27.0-33.0 [facility] Comment on above: Performed By: #### M RSAPCR #### [place] [address] #### CVFLURV #### [place] [address] MCHC 32.2 G/dL Normal 32.0-36.0 [facility] Comment on above: Performed By: #### M RSAPCR #### [place] [address] #### CVFLURV #### [address] [address] MCV (RBC) [Entitic vol] 92.2 fL Normal 80.0-99.0 [facility] Comment on above: Performed By: #### M RSAPCR #### [place] [address] #### CVFLURV #### [address] [address] Platelet 257 10 3/mcL Normal 150-450 [facility] Comment on above: Performed By: #### M RSAPCR #### [place] [address] #### CVFLURV #### [address] [address] Platelet mean volume (Bld) [Entitic vol] 9.3 fL Normal 6.6-10.5 [facility] Comment on above: Performed By: #### M RSAPCR #### [place] [address] #### CVFLURV #### [address] [address] RBC 4.12 10 6/mcL Normal 4.10-5.30 [facility] Comment on above: Performed By: #### M RSAPCR #### [place] [address] #### CVFLURV #### [address] [address] WBC 4.0 10 3/mcL Low 4.5-10.8 [facility] Comment on above: Performed By: #### M RSAPCR #### [place] [address] #### CVFLURV #### [address] [address] CVFLURVon 05-17-2025 FLU A PCR Negative Normal Negative [facility] Comment on above: Performed By: #### M RSAPCR #### [place] [address] #### CVFLURV #### [address] [address] FLU B PCR Negative Normal Negative [facility] Comment on above: Performed By: #### M RSAPCR #### [address] [address] #### CVFLURV #### [address] [address] RSV PCR Negative Normal Negative [facility] Comment on above: Performed By: #### M RSAPCR #### [place] [address] #### CVFLURV #### [place] [address] SARS-CoV-2 (COVID-19) RNA IVANA+probe Ql (Unsp spec) Negative Normal Negative [facility] Comment on above: Result Comment: Resu lts from the Xpert Xpress CoV-2/Flu/RSV plus test should be correlated with the clinical history, epidemiological data, and other data available to the clinical evaluating the patient. Performance of the Xpert Xpress CoV-2/Flu/RSV plus test has only been established in nasopharyngeal swab specimen. Erroneous test results might occur from improper specimen collection, failure to follow the recommended sample collection, handling and storage procedures, technical error, or sample mix-up. False negative results may occur if a virus is present at a level below the analytical limit of detection. Viral nucleic acid may persist in vivo, independent of virus viability. Detection of analyte target(s) does not imply that the corresponding virus(es) are infectious or are the causative agents for clinical symptoms. Recent patient exposure to FluMist or other live attenuated influenza vaccines may cause inaccurate positive results. Performed By: #### M RSAPCR #### [place] [address] #### CVFLURV #### [place] [address] LABORATORYOrdered By: SYSTEM SYSTEM on 05-17-2025 Natriuretic peptide.B prohormone N-Terminal [Mass/Vol] 5616 pg/mL High 0 - 125 pg/mL AO ADM SS Comment on above: Interpretive Data: N T-proBNP results of less than 300 pg/mL effectively rules out acute congestive heart failure with 99% negative predictive value. LABORATORYOrdered By: Haider Ellis on 05-17-2025 FLUAV RNA IVANA+probe Ql (Resp) Negative (05/17/25 1:04 AM) Normal Negative AO Auto Urine SS FLUBV RNA IVANA+probe Ql (Resp) Negative (05/17/25 1:04 AM) Normal Negative AO Auto Urine SS RSV RNA IVANA+probe Ql (Resp) Negative (05/17/25 1:04 AM) Normal Negative AO Auto Urine SS SARS-CoV-2 (COVID-19) RNA IVANA+probe Ql (Resp) Negative 11 (05/17/25 1:04 AM) Normal Negative AO Auto Urine SS Comment on above: Interpretive Data: R esults from the Xpert Xpress CoV-2/Flu/RSV plus test should be correlated with the clinical history, epidemiological data, and other data available to the clinical evaluating the patient. Performance of the Xpert Xpress CoV-2/Flu/RSV plus test has only been established in nasopharyngeal swab specimen. Erroneous test results might occur from improper specimen collection, failure to follow the recommended sample collection, handling and storage procedures, technical error, or sample mix-up. False negative results may occur if a virus is present at a level below the analytical limit of detection. Viral nucleic acid may persist in vivo, independent of virus viability. Detection of analyte target(s) does not imply that the corresponding virus(es) are infectious or are the causative agents for clinical symptoms. Recent patient exposure to FluMist or other live attenuated influenza vaccines may cause inaccurate positive results. LABORATORYOrdered By: Jensen Rivera on 05-17-2025 M. pneumoniae IgG IA Ql (S) Positive 13 *NA* (05/17/25 1:04 AM) Invalid Interpretation Code AH Auto Viro/Sero SS Comment on above: Interpretive Data: I NTERPRETATION OF MYCOPLASMA IgG BY EIA: Negative: No detectable M. pneumoniae IgG antibody. Positive: Mycoplasma pneumoniae IgG antibody Detected. Equivocal: Equivocal for IgG antibodies to Mycoplasma pneumoniae. Suggest repeat testing in 10-14 days. LABORATORYOrdered By: Milo Jonas on 05-17-2025 M. pneumoniae IgM IA Ql (S) Negative 12 (05/17/25 1:04 AM) Normal AH Man Viro/Sero SS Comment on above: Interpretive Data: I NTERPRETATION OF MYCOPLASMA IgM: Negative: IgM to M. pneumoniae Absent, or at levels below the assay limit of detection. Positive: IgM to M. pneumoniae Present. Invalid: Test results are invalid due to invalid internal control. Assay was performed in duplicate. Repeat testing is suggested if clinically indicated. MRSA (PCR) Not Detected 1 (05/17/25 1:04 AM) Normal Not Detected AH Auto Viro/Sero SS Comment on above: Result Comment: Note s [id number] MRSA PCR Int See Below 2 *NA* (05/17/25 1:04 AM) Invalid Interpretation Code AH Auto Viro/Sero SS Comment on above: Result Comment: Clinical Interpretation: MRSA DNA not detected by Real-Time Polymerase Chain Reaction (PCR). A negative result may be due to intermittent colonization. Colonization may vary depending on patient treatment, patient status, or exposure to high-risk environments. As with all PCR based in vitro diagnostic tests, extremely low levels of target below the limit of detection of the assay may be detected, but results may not be reproducible. MGon 05-17-2025 Magnesium [Mass/Vol] 1.5 mg/dL Low 1.8-2.4 [facility] Comment on above: Performed By: #### M RSAPCR #### [address] [address] #### CVFLURV #### [address] [address] MRSAPCRon 05-17-2025 MRSA (PCR) Not detected Normal Not Detected [facility] Comment on above: Result Comment: [place] [id number] Performed By: #### M RSAPCR #### [address] [address] #### CVFLURV #### [address] [address] MRSA PCR Int See Below Normal [facility] Comment on above: Result Comment: Clinical Interpretation: MRSA DNA not detected by Real-Time Polymerase Chain Reaction (PCR). A negative result may be due to intermittent colonization. Colonization may vary depending on patient treatment, patient status, or exposure to high-risk environments. As with all PCR based in vitro diagnostic tests, extremely low levels of target below the limit of detection of the assay may be detected, but results may not be reproducible. Performed By: #### M RSAPCR #### [address] [address] #### CVFLURV #### [address] [address] No Panel Informationon 05-17 Legionella Urine Ag Presumptive negative for L. pneumophila serogroup 1 antigen in urine, suggesting no recent or current infection. Legionnaire's disease cannot be ruled out since other serogroups and species may also cause disease. [facility] Work Phone: Microscopic examination of blood, culture Blood Culture: No Growth at 5 days. [facility] Work Phone: Streptococcus Pneumoniae Urine Antig Presumptive negative for pneumococcal pneumonia, suggesting no current or recent pneumococcal infection. Infection due to Strep pneumoniae cannot be ruled out since the antigen present in the sample may be below the detection limit of the test. [facility] Work Phone: Comment on above: This test has not be en evaluated on patients taking antibiotics for greater than 24 hours or on patients who have recently completed an antibiotic regimen. The accuracy of this test has not been proven in young children. PBNPon 05-17-2025 Natriuretic peptide B (Bld) [Mass/Vol] 5616 pg/mL High 0-125 [facility] Comment on above: Result Comment: NT-p roBNP results of less than 300 pg/mL effectively rules out acute congestive heart failure with 99% negative predictive value. Performed By: #### M RSAPCR #### [place] [address] #### CVFLURV #### [address] [address] .Auto Diffon 05-16-2025 Basophil, Absolute 0.1 10 3/mcL Normal 0.0-0.3 [facility] Comment on above: Performed By: #### A DIFF, PBNP, TROPHS, CBC, GFR, MDW, ANEU, BMP #### [address] [address] Basophils/100 WBC (Bld) 2.0 % Normal 0.0-2.5 [facility] Comment on above: Performed By: #### A DIFF, PBNP, TROPHS, CBC, GFR, MDW, ANEU, BMP #### [address] [address] Eosinophil, Absolute 0.1 10 3/mcL Normal 0.0-0.7 [facility] Comment on above: Performed By: #### A DIFF, PBNP, TROPHS, CBC, GFR, MDW, ANEU, BMP #### [address] [address] Eosinophils/100 WBC (Bld) 1.9 % Normal 0.0-6.0 [facility] Comment on above: Performed By: #### A DIFF, PBNP, TROPHS, CBC, GFR, MDW, ANEU, BMP #### [address] [address] Lymphocyte, Absolute 1.4 10 3/mcL Normal 0.9-4.3 [facility] Comment on above: Performed By: #### A DIFF, PBNP, TROPHS, CBC, GFR, MDW, ANEU, BMP #### [address] [address] Lymphocytes/100 WBC (Bld) 20.4 % Normal 20.0-40.0 [facility] Comment on above: Performed By: #### A DIFF, PBNP, TROPHS, CBC, GFR, MDW, ANEU, BMP #### [address] [address] Monocyte, Absolute 0.8 10 3/mcL Normal 0.1-1.4 [facility] Comment on above: Performed By: #### A DIFF, PBNP, TROPHS, CBC, GFR, MDW, ANEU, BMP #### [address] [address] Monocytes/100 WBC (Bld) 12.2 % Normal 2.0-13.0 [facility] Comment on above: Performed By: #### A DIFF, PBNP, TROPHS, CBC, GFR, MDW, ANEU, BMP #### [address] [address] Neutrophils/100 WBC (Bld) 63.5 % Normal 50.0-75.0 [facility] Comment on above: Performed By: #### A DIFF, PBNP, TROPHS, CBC, GFR, MDW, ANEU, BMP #### [address] [address] .GFRon 05-16-2025 Estimated Glomerular Filtration Rate 67 ml/min/1.73sqm Normal [facility] Comment on above: Result Comment: Stages of Chronic Kidney Disease (CKD) Stage Description eGFR(ml/min/1.73 sq.m.) CKD 1 Normal kidney function or >=90 normal kindney function with possible kidney damage (ex. Proteinuria) CKD 2 Kidney damage with mild loss 60-89 of kidney function CKD 3a Mild to moderate loss of kidney 45-59 function CKD 3b Moderate to severe loss of 30-44 of kindey function CKD 4 Severe loss of kidney function 15-29 CKD 5 Kidney failure <15 Note: (go live 2024) the eGFR calculation was updated to the 2020 CKD-EPI creatinine equation without a race factor to calculate the eGFR results. Performed By: #### M RSAPCR #### [address] [address] #### CVFLURV #### [address] [address] .MDWon 05-16-2025 Monocyte Distribution Width 16.95 Normal 0.00-20.00 [facility] Comment on above: Result Comment: For ED adult patients suspected of sepsis, MDW<=20.0 does not rule out sepsis or risk of sepsis Performed By: #### A DIFF, PBNP, TROPHS, CBC, GFR, MDW, ANEU, BMP #### [address] [address] .NEUABSon 05-16-2025 Neutrophil, Absolute 4.2 10 3/mcL Normal 2.3-8.1 [facility] Comment on above: Performed By: #### A DIFF, PBNP, TROPHS, CBC, GFR, MDW, ANEU, BMP #### [address] [address] BMPon 05-16-2025 BUN/Creatinine Ratio 13 ratio Normal 7-27 [facility] Comment on above: Performed By: #### A DIFF, PBNP, TROPHS, CBC, GFR, MDW, ANEU, BMP #### [address] [address] Calcium [Mass/Vol] 8.4 mg/dL Normal 8.4-10.2 [facility] Comment on above: Performed By: #### A DIFF, PBNP, TROPHS, CBC, GFR, MDW, ANEU, BMP #### [address] [address] Chloride [Moles/Vol] 109 mmol/L High 98-107 [facility] Comment on above: Performed By: #### A DIFF, PBNP, TROPHS, CBC, GFR, MDW, ANEU, BMP #### [address] [address] [address] CO2 [Moles/Vol] 38 mmol/L High 23-31 [facility] Comment on above: Performed By: #### A DIFF, PBNP, TROPHS, CBC, GFR, MDW, ANEU, BMP #### [address] [address] Creatinine [Mass/Vol] 0.92 mg/dL Normal 0.51-0.95 [facility] Comment on above: Performed By: #### A DIFF, PBNP, TROPHS, CBC, GFR, MDW, ANEU, BMP #### [address] [address] Electrolyte Balance 2.0 mEq/L Low 4.0-15.0 [facility] Comment on above: Performed By: #### A DIFF, PBNP, TROPHS, CBC, GFR, MDW, ANEU, BMP #### [address] [address] Glucose [Mass/Vol] 124 mg/dL High 83-110 [facility] Comment on above: Performed By: #### A DIFF, PBNP, TROPHS, CBC, GFR, MDW, ANEU, BMP #### [address] [address] Potassium [Moles/Vol] 4.0 mmol/L Normal 3.5-5.1 [facility] Comment on above: Performed By: #### A DIFF, PBNP, TROPHS, CBC, GFR, MDW, ANEU, BMP #### [address] [address] Sodium [Moles/Vol] 149 mmol/L High 136-145 [facility] Comment on above: Performed By: #### A DIFF, PBNP, TROPHS, CBC, GFR, MDW, ANEU, BMP #### [address] [address] Urea nitrogen [Mass/Vol] 12 mg/dL Normal 7-18 [facility] Comment on above: Performed By: #### A DIFF, PBNP, TROPHS, CBC, GFR, MDW, ANEU, BMP #### [address] [address] CBCon 05-16-2025 Erythrocyte distribution width (RBC) [Ratio] 18.0 % High 11.5-15.5 [facility] Comment on above: Performed By: #### A DIFF, PBNP, TROPHS, CBC, GFR, MDW, ANEU, BMP #### [address] [address] Hematocrit (Bld) [Volume fraction] 43.3 % Normal 34.0-46.0 [facility] Comment on above: Performed By: #### A DIFF, PBNP, TROPHS, CBC, GFR, MDW, ANEU, BMP #### [address] [address] Hgb 13.8 G/dL Normal 12.0-16.0 [facility] Comment on above: Performed By: #### A DIFF, PBNP, TROPHS, CBC, GFR, MDW, ANEU, BMP #### [address] [address] MCH (RBC) [Entitic mass] 29.8 pg Normal 27.0-33.0 [facility] Comment on above: Performed By: #### A DIFF, PBNP, TROPHS, CBC, GFR, MDW, ANEU, BMP #### [address] [address] MCHC 31.9 G/dL Low 32.0-36.0 [facility] Comment on above: Performed By: #### A DIFF, PBNP, TROPHS, CBC, GFR, MDW, ANEU, BMP #### [address] [address] MCV (RBC) [Entitic vol] 93.3 fL Normal 80.0-99.0 [facility] Comment on above: Performed By: #### A DIFF, PBNP, TROPHS, CBC, GFR, MDW, ANEU, BMP #### [address] [address] Platelet 264 10 3/mcL Normal 150-450 [facility] Comment on above: Performed By: #### A DIFF, PBNP, TROPHS, CBC, GFR, MDW, ANEU, BMP #### [address] [address] Platelet mean volume (Bld) [Entitic vol] 9.0 fL Normal 6.6-10.5 [facility] Comment on above: Performed By: #### A DIFF, PBNP, TROPHS, CBC, GFR, MDW, ANEU, BMP #### [address] [address] RBC 4.64 10 6/mcL Normal 4.10-5.30 [facility] Comment on above: Performed By: #### A DIFF, PBNP, TROPHS, CBC, GFR, MDW, ANEU, BMP #### [address] [address] WBC 6.6 10 3/mcL Normal 4.5-10.8 [facility] Comment on above: Performed By: #### A DIFF, PBNP, TROPHS, CBC, GFR, MDW, ANEU, BMP #### [address] [place] [id number] [place] [address] LABORATORYOrdered By: Haider Ellis on 05-16-2025 Appearance (U) Slightly Cloudy *ABN* (05/16/25 9:50 PM) Invalid Interpretation Code Clear AO Auto Urine SS Bacteria LM.HPF (Urine sed) [#/Area] 2 /[HPF] Invalid Interpretation Code Negative AO Auto Urine SS Bilirubin Ql (U) Negative (05/16/25 9:50 PM) Normal Negative AO Auto Urine SS Color (U) Yellow (05/16/25 9:50 PM) Normal AO Auto Urine SS Glucose Test strip (U) [Mass/Vol] Negative Normal Negative AO Auto Urine SS Hemoglobin Auto test strip (U) [Mass/Vol] Negative (05/16/25 9:50 PM) Normal Negative AO Auto Urine SS Ketones Ql (U) Negative Normal Negative AO Auto Urine SS UA Leuk Est Negative (05/16/25 9:50 PM) Normal Negative AO Auto Urine SS UA Nitrite Negative (05/16/25 9:50 PM) Normal Negative AO Auto Urine SS UA pH 6.0 (05/16/25 9:50 PM) Normal 5.0 - 8.0 AO Auto Urine SS UA Protein 30 mg/dL Normal Negative AO Auto Urine SS UA RBC Negative Normal 0-2 AO Auto Urine SS UA Spec Grav 1.015 (05/16/25 9:50 PM) Normal 1.015-1.025 AO Auto Urine SS UA Specimen Type Not Given (05/16/25 9:50 PM) Normal AO Auto Urine SS UA Squam Epithelial 3-5 /HPF Normal 0-20 AO Au to Urine SS UA Urobilinogen 0.2 E.U./dL Normal 0.2-1.0 AO Auto Urine SS WBC LM.HPF (Urine sed) [#/Area] 0-2 /HPF Normal 0-5 AO Auto Urine SS Yeast LM.HPF (Urine sed) [#/Area] Trace /HPF Invalid Interpretation Code AO Auto Urine SS LABORATORYOrdered By: SYSTEM SYSTEM on 05-16-2025 Monocyte distribution width Auto (Bld) [Entitic vol] 16.95 1 Normal 0.00 - 20.00 AO Workflow SS Comment on above: Result Comment: For ED adult patients suspected of sepsis, MDW<=20.0 does not rule out sepsis or risk of sepsis Troponin I.cardiac DL <= 0.01 ng/mL [Mass/Vol] 38 ng/L Normal 0 - 51 ng/L AO ADM SS Comment on above: Interpretive Data: H igh Sensitive Troponin I Reference Ranges: Female: 0-51 ng/L Male: 0-76 ng/L Testing performed on Dimension EXL using a homogeneous sandwich chemiluminescent immunoassay based on [employer] technology. PBNPon 05-16-2025 Natriuretic peptide B (Bld) [Mass/Vol] 4760 pg/mL High 0-125 [facility] Comment on above: Result Comment: NT-p roBNP results of less than 300 pg/mL effectively rules out acute congestive heart failure with 99% negative predictive value. Performed By: #### A DIFF, PBNP, TROPHS, CBC, GFR, MDW, ANEU, BMP #### [address] [address] [facility] High Sensitivity Troponin I 38 ng/L Normal 0-51 [facility] Comment on above: Result Comment: High Sensitive Troponin I Reference Ranges: Female: 0-51 ng/L Male: 0-76 ng/L Testing performed on [employer] using a homogeneous sandwich chemiluminescent immunoassay based on [employer] technology. Performed By: #### A DIFF, PBNP, TROPHS, CBC, GFR, MDW, ANEU, BMP #### [address] [address] UAon 05-16-2025 Color (U) Yellow Normal [facility] Comment on above: Performed By: #### A DIFF, PBNP, TROPHS, CBC, GFR, MDW, ANEU, BMP #### [address] [address] Glucose (U) [Mass/Vol] Negative Normal Negative [facility] Comment on above: Performed By: #### A DIFF, PBNP, TROPHS, CBC, GFR, MDW, ANEU, BMP #### [address] [address] Ketones Ql (U) Negative Normal Negative [facility] Comment on above: Performed By: #### A DIFF, PBNP, TROPHS, CBC, GFR, MDW, ANEU, BMP #### [place] [address] UA Appear Slightly Cloudy Abnormal Clear [facility] Comment on above: Performed By: #### A DIFF, PBNP, TROPHS, CBC, GFR, MDW, ANEU, BMP #### [place] [address] UA Blood Negative Normal Negative [facility] Comment on above: Performed By: #### A DIFF, PBNP, TROPHS, CBC, GFR, MDW, ANEU, BMP #### [place] [address] UA Leuk Est Negative Normal Negative [facility] Comment on above: Performed By: #### A DIFF, PBNP, TROPHS, CBC, GFR, MDW, ANEU, BMP #### [place] [address] UA Nitrite Negative Normal Negative [facility] Comment on above: Performed By: #### A DIFF, PBNP, TROPHS, CBC, GFR, MDW, ANEU, BMP #### [place] [address] UA pH 6.0 Normal 5.0 - 8.0 [facility] Comment on above: Performed By: #### A DIFF, PBNP, TROPHS, CBC, GFR, MDW, ANEU, BMP #### [place] [address] UA Protein 30 mg/dL Normal Negative [facility] Comment on above: Performed By: #### A DIFF, PBNP, TROPHS, CBC, GFR, MDW, ANEU, BMP #### [place] [address] UA Spec Grav 1.015 Normal 1.015-1.025 [facility] Comment on above: Performed By: #### A DIFF, PBNP, TROPHS, CBC, GFR, MDW, ANEU, BMP #### [place] [address] UA Specimen Type Not Given Normal [facility] Comment on above: Performed By: #### A DIFF, PBNP, TROPHS, CBC, GFR, MDW, ANEU, BMP #### [place] [address] UA Urobilinogen 0.2 E.U./dL Normal 0.2-1.0 [facility] Comment on above: Performed By: #### A DIFF, PBNP, TROPHS, CBC, GFR, MDW, ANEU, BMP #### [place] [address] Urobilinogen (U) [Mass/Vol] Negative Normal Negative [facility] Comment on above: Performed By: #### A DIFF, PBNP, TROPHS, CBC, GFR, MDW, ANEU, BMP #### [place] [address] UAMICon 05-16-2025 UA Bacteria 2+ /hpf Abnormal Negative [facility] Comment on above: Performed By: #### A DIFF, PBNP, TROPHS, CBC, GFR, MDW, ANEU, BMP #### [place] [address] UA RBC Negative Normal 0-2 [facility] Comment on above: Performed By: #### A DIFF, PBNP, TROPHS, CBC, GFR, MDW, ANEU, BMP #### [place] [address] UA Squam Epithelial 3-5 Normal 0-20 [facility] Comment on above: Performed By: #### A DIFF, PBNP, TROPHS, CBC, GFR, MDW, ANEU, BMP #### [place] [address] UA WBC 0-2 Normal 0-5 [facility] Comment on above: Performed By: #### A DIFF, PBNP, TROPHS, CBC, GFR, MDW, ANEU, BMP #### [place] [address] UA Yeast Trace Abnormal [facility] Comment on above: Performed By: #### A DIFF, PBNP, TROPHS, CBC, GFR, MDW, ANEU, BMP #### [place] [address] [place], [place] [address] XR CHEST 1 VIEWon 05-16-2025 XR CHEST 1 VIEW ORIGINAL EXAMINATION: ONE XRAY VIEW OF THE CHEST05/16/2025 8:02 pm COMPARISON: 03/04/2025 HISTORY: ORDERING SYSTEM PROVIDED HISTORY: Reason for Exam: SOB/cough/fever FINDINGS: Heart and mediastinum: Cardiomediastinal silhouette is stable. Coronary artery stents. Lungs and pleura: Right costophrenic angle is sharp. Left costophrenic angle is blunted. No radiographic pneumothorax. Pulmonary vascular and reticular interstitial prominence.. Bones: No acute bony abnormality. Remodeled bilateral rib deformities. Cervical spine fixation. IMPRESSION: Left pleural fluid with adjacent airspace disease. Pulmonary vascular and reticular interstitial prominence which could reflect mild congestion/interstitial edema. Underlying infection not excluded. I have personally reviewed the images of this examination and agree with the resident's findings and interpretation. Interpreted by: Anthony Merida Preliminary Report By: Jakob Gonzales Electronically signed By Anthony Merida Dictated Date: 05/16/2025 8:18:04 PM Prelim Date: 05/16/2025 8:22:21 PM Sign Date: 05/16/2025 8:27:46 PM Ordering Provider: BRIAN TRINIDAD Interpreted by: Anthony Merida Preliminary Report By: Jakob Gonzales Electronically signed By Anthony Merida Dictated Date: 05/16/2025 8:18:04 PM Prelim Date: 05/16/2025 8:22:21 PM Sign Date: 05/16/2025 8:27:46 PM Ordering Provider: BRIAN TRINIDAD Normal [facility] .Auto Diffon 03-05-2025 Basophil, Absolute 0.0 10 3/mcL Normal 0.0-0.3 [facility] Comment on above: Performed By: #### M RSAPCR #### [facility] [address] [place] [id number] #### CVFLURV #### [place] [address] [place], [place] [address] Basophils/100 WBC (Bld) 0.1 % Normal 0.0-2.5 A [facility] Comment on above: Performed By: #### M RSAPCR #### [place] [address] #### CVFLURV #### [address] [address] Eosinophil, Absolute 0.0 10 3/mcL Normal 0.0-0.7 [facility] Comment on above: Performed By: #### M RSAPCR #### [place] [address] #### CVFLURV #### [address] [address] Eosinophils/100 WBC (Bld) 0.0 % Normal 0.0-6.0 [facility] Comment on above: Performed By: #### M RSAPCR #### [place] [address] #### CVFLURV #### [address] [address] Lymphocyte, Absolute 0.4 10 3/mcL Low 0.9-4.3 [facility] Comment on above: Performed By: #### M RSAPCR #### [place] [address] #### CVFLURV #### [address] [address] Lymphocytes/100 WBC (Bld) 4.4 % Low 20.0-40.0 [facility] Comment on above: Performed By: #### M RSAPCR #### [place] [address] #### CVFLURV #### [address] [address] Monocyte, Absolute 0.2 10 3/mcL Normal 0.1-1.4 [facility] Comment on above: Performed By: #### M RSAPCR #### [place] [address] #### CVFLURV #### [address] [address] Monocytes/100 WBC (Bld) 2.7 % Normal 2.0-13.0 A [facility] Comment on above: Performed By: #### M RSAPCR #### [address] [address] #### CVFLURV #### [address] [address] Neutrophils/100 WBC (Bld) 92.8 % High 50.0-75.0 [facility] Comment on above: Performed By: #### M RSAPCR #### [place] [address] #### CVFLURV #### [address] [address] .GFRon 03-05-2025 Estimated Glomerular Filtration Rate 88 ml/min/1.73sqm Normal [facility] Comment on above: Result Comment: Stages of Chronic Kidney Disease (CKD) Stage Description eGFR(ml/min/1.73 sq.m.) CKD 1 Normal kidney function or >=90 normal kindney function with possible kidney damage (ex. Proteinuria) CKD 2 Kidney damage with mild loss 60-89 of kidney function CKD 3a Mild to moderate loss of kidney 45-59 function CKD 3b Moderate to severe loss of 30-44 of kindey function CKD 4 Severe loss of kidney function 15-29 CKD 5 Kidney failure <15 Note: (go live 2024) the eGFR calculation was updated to the 2020 CKD-EPI creatinine equation without a race factor to calculate the eGFR results. Performed By: #### M RSAPCR #### [place] [address] #### CVFLURV #### [address] [address] .NEUABSon 03-05-2025 Neutrophil, Absolute 7.6 10 3/mcL Normal 2.3-8.1 [facility] Comment on above: Performed By: #### M RSAPCR #### [place] [id number] #### CVFLURV #### [address] [address] BMPon 03-05-2025 BUN/Creatinine Ratio 28 ratio High 7-27 [facility] Comment on above: Performed By: #### M RSAPCR #### [place] [address] #### CVFLURV #### [address] [address] Calcium [Mass/Vol] 8.5 mg/dL Normal 8.4-10.2 [facility] Comment on above: Performed By: #### M RSAPCR #### [place] [address] #### CVFLURV #### [place] [address] Chloride [Moles/Vol] 107 mmol/L Normal 98-107 [facility] Comment on above: Performed By: #### M RSAPCR #### [place] [address] #### CVFLURV #### [address] [address] CO2 [Moles/Vol] 29 mmol/L Normal 23-31 [facility] Comment on above: Performed By: #### M RSAPCR #### [place] [address] #### CVFLURV #### [address] [address] Creatinine [Mass/Vol] 0.74 mg/dL Normal 0.51-0.95 [facility] Comment on above: Performed By: #### M RSAPCR #### [place] [address] #### CVFLURV #### [address] [address] Electrolyte Balance 5.0 mEq/L Normal 4.0-15.0 [facility] Comment on above: Performed By: #### M RSAPCR #### [place] [address] #### CVFLURV #### [address] [address] Glucose [Mass/Vol] 160 mg/dL High 80-115 [facility] Comment on above: Performed By: #### M RSAPCR #### [place] [address] #### CVFLURV #### [address] [address] Potassium [Moles/Vol] 4.6 mmol/L Normal 3.5-5.1 [facility] Comment on above: Performed By: #### M RSAPCR #### [place] [address] #### CVFLURV #### [address] [address] Sodium [Moles/Vol] 141 mmol/L Normal 136-145 [facility] Comment on above: Performed By: #### M RSAPCR #### [place] [address] #### CVFLURV #### [address] [address] Urea nitrogen [Mass/Vol] 21 mg/dL High 7-18 [facility] Comment on above: Performed By: #### M RSAPCR #### [place] [address] #### CVFLURV #### [address] [address] CBCon 03-05-2025 Erythrocyte distribution width (RBC) [Ratio] 16.5 % High 11.5-15.5 [facility] Comment on above: Performed By: #### M RSAPCR #### [place] [address] #### CVFLURV #### [address] [address] Hematocrit (Bld) [Volume fraction] 38.1 % Normal 34.0-46.0 [facility] Comment on above: Performed By: #### M RSAPCR #### [place] [address] #### CVFLURV #### [address] [address] Hgb 12.4 G/dL Normal 12.0-16.0 [facility] Comment on above: Performed By: #### M RSAPCR #### [place] [address] #### CVFLURV #### [address] [address] MCH (RBC) [Entitic mass] 29.7 pg Normal 27.0-33.0 [facility] Comment on above: Performed By: #### M RSAPCR #### [place] [address] #### CVFLURV #### [place] [address] MCHC 32.4 G/dL Normal 32.0-36.0 [facility] Comment on above: Performed By: #### M RSAPCR #### [place] [address] #### CVFLURV #### [place] [address] MCV (RBC) [Entitic vol] 91.7 fL Normal 80.0-99.0 [facility] Comment on above: Performed By: #### M RSAPCR #### [place] [address] #### CVFLURV #### [address] [address] Platelet 318 10 3/mcL Normal 150-450 [facility] Comment on above: Performed By: #### M RSAPCR #### [place] [address] #### CVFLURV #### [address] [address] Platelet mean volume (Bld) [Entitic vol] 8.2 fL Normal 6.6-10.5 [facility] Comment on above: Performed By: #### M RSAPCR #### [place] [address] #### CVFLURV #### [address] [address] RBC 4.16 10 6/mcL Normal 4.10-5.30 [facility] Comment on above: Performed By: #### M RSAPCR #### [place] [address] #### CVFLURV #### [place] [address] WBC 8.2 10 3/mcL Normal 4.5-10.8 [facility] Comment on above: Performed By: #### M RSAPCR #### [place] [address] #### CVFLURV #### [place] [address] LABORATORYOrdered By: SYSTEM SYSTEM on 03-05-2025 Basophils (Bld) [#/Vol] 0.0 103/mcL Normal 0.0 - 0.3 10^3/mcL AO Workflow SS Basophils/100 WBC (Bld) 0.1 % Normal 0.0 - 2.5 % AO Workflow SS Calcium [Mass/Vol] 8.5 mg/dL Normal 8.4 - 10. 2 mg/dL AO ADM SS Chloride [Moles/Vol] 107 mmol/L Normal 98 - 10 7 mmol/L AO ADM SS CO2 [Moles/Vol] 29 mmol/L Normal 23 - 31 mmol/L AO ADM SS Creatinine [Mass/Vol] 0.74 mg/dL Normal 0.51 - 0.95 mg/dL AO ADM SS Electrolyte Balance 5.0 mEq/L Normal 4.0 - 15 .0 mEq/L AO ADM SS Eosinophil, Absolute 0.0 103/mcL Normal 0.0 - 0 .7 10^3/mcL AO Workflow SS Eosinophils/100 WBC (Bld) 0.0 % Normal 0.0 - 6.0 % AO Workflow SS Erythrocyte distribution width (RBC) [Ratio] 16.5 % High 11.5 - 15.5 % AO Workflow SS Estimated Glomerular Filtration Rate 88 ml/min/1.73sqm Invalid Interpretation Code AO Chemistry S Comment on above: Interpretive Data: Stages of Chronic Kidney Disease (CKD) Stage Description eGFR(ml/min/1.73 sq.m.) CKD 1 Normal kidney function or >=90 normal kindney function with possible kidney damage (ex. Proteinuria) CKD 2 Kidney damage with mild loss 60-89 of kidney function CKD 3a Mild to moderate loss of kidney 45-59 function CKD 3b Moderate to severe loss of 30-44 of kindey function CKD 4 Severe loss of kidney function 15-29 CKD 5 Kidney failure <15 Note: (go live 2024) the eGFR calculation was updated to the 2020 CKD-EPI creatinine equation without a race factor to calculate the eGFR results. Glucose [Mass/Vol] 160 mg/dL High 80 - 115 mg/dL AO ADM SS Hematocrit (Bld) [Volume fraction] 38.1 % Normal 34.0 - 46.0 % AO Workflow SS Hemoglobin (Bld) [Mass/Vol] 12.4 G/dL Normal 12.0 - 16.0 G/dL AO Workflow SS Lymphocytes (Bld) [#/Vol] 0.4 103/mcL Low 0.9 - 4.3 10^3/mcL AO Workflow SS Lymphocytes/100 WBC (Bld) 4.4 % Low 20.0 - 40.0 % AO Workflow SS MCH (RBC) [Entitic mass] 29.7 pg Normal 27.0 - 33.0 pg AO Workflow SS MCHC 32.4 G/dL Normal 32.0 - 36.0 G/dL AO Workflow SS MCV (RBC) [Entitic vol] 91.7 fL Normal 80.0 - 99.0 fL AO Workflow SS Monocytes (Bld) [#/Vol] 0.2 103/mcL Normal 0.1 - 1.4 10^3/mcL AO Workflow SS Monocytes/100 WBC (Bld) 2.7 % Normal 2.0 - 13.0 % AO Workflow SS Neutrophils (Bld) [#/Vol] 7.6 103/mcL Normal 2.3 - 8.1 10^3/mcL AO Workflow SS Neutrophils/100 WBC (Bld) 92.8 % High 50.0 - 75.0 % AO Workflow SS Platelet mean volume (Bld) [Entitic vol] 8.2 fL Normal 6.6 - 10.5 fL AO Workflow SS Platelets (Bld) [#/Vol] 318 103/mcL Normal 150 - 450 10^3/mcL AO Workflow SS Potassium [Moles/Vol] 4.6 mmol/L Normal 3.5 - 5.1 mmol/L AO ADM SS RBC (Bld) [#/Vol] 4.16 106/mcL Normal 4.10 - 5.3 0 10^6/mcL AO Workflow SS Sodium [Moles/Vol] 141 mmol/L Normal 136 - 145 mmol/L AO ADM SS Urea nitrogen [Mass/Vol] 21 mg/dL High 7 - 18 mg/dL AO ADM SS Urea nitrogen/Creatinine [Mass ratio] 28 ratio High 7 - 27 ratio AO ADM SS WBC (Bld) [#/Vol] 8.2 103/mcL Normal 4.5 - 10.8 10^3/mcL AO Workflow SS .Auto Diffon 03-04-2025 Basophil, Absolute 0.1 10 3/mcL Normal 0.0-0.3 [facility] Comment on above: Performed By: #### A DIFF, PBNP, TROPHS, CBC, GFR, MDW, ANEU, BMP #### [address] [address] Basophils/100 WBC (Bld) 0.9 % Normal 0.0-2.5 [facility] Comment on above: Performed By: #### A DIFF, PBNP, TROPHS, CBC, GFR, MDW, ANEU, BMP #### [address] [address] Eosinophil, Absolute 0.2 10 3/mcL Normal 0.0-0.7 [facility] Comment on above: Performed By: #### A DIFF, PBNP, TROPHS, CBC, GFR, MDW, ANEU, BMP #### [address] [address] Eosinophils/100 WBC (Bld) 1.9 % Normal 0.0-6.0 [facility] Comment on above: Performed By: #### A DIFF, PBNP, TROPHS, CBC, GFR, MDW, ANEU, BMP #### [address] [address] Lymphocyte, Absolute 1.9 10 3/mcL Normal 0.9-4.3 [facility] Comment on above: Performed By: #### A DIFF, PBNP, TROPHS, CBC, GFR, MDW, ANEU, BMP #### [address] [address] Lymphocytes/100 WBC (Bld) 22.2 % Normal 20.0-40.0 [facility] Comment on above: Performed By: #### A DIFF, PBNP, TROPHS, CBC, GFR, MDW, ANEU, BMP #### [address] [address] Monocyte, Absolute 1.0 10 3/mcL Normal 0.1-1.4 [facility] Comment on above: Performed By: #### A DIFF, PBNP, TROPHS, CBC, GFR, MDW, ANEU, BMP #### [address] [address] Monocytes/100 WBC (Bld) 11.9 % Normal 2.0-13.0 [facility] Comment on above: Performed By: #### A DIFF, PBNP, TROPHS, CBC, GFR, MDW, ANEU, BMP #### [address] [address] Neutrophils/100 WBC (Bld) 63.1 % Normal 50.0-75.0 [facility] Comment on above: Performed By: #### A DIFF, PBNP, TROPHS, CBC, GFR, MDW, ANEU, BMP #### [address] [address] .GFRon 03-04-2025 Estimated Glomerular Filtration Rate 75 ml/min/1.73sqm Normal [facility] Comment on above: Result Comment: Stages of Chronic Kidney Disease (CKD) Stage Description eGFR(ml/min/1.73 sq.m.) CKD 1 Normal kidney function or >=90 normal kindney function with possible kidney damage (ex. Proteinuria) CKD 2 Kidney damage with mild loss 60-89 of kidney function CKD 3a Mild to moderate loss of kidney 45-59 function CKD 3b Moderate to severe loss of 30-44 of kindey function CKD 4 Severe loss of kidney function 15-29 CKD 5 Kidney failure <15 Note: (go live 2024) the eGFR calculation was updated to the 2020 CKD-EPI creatinine equation without a race factor to calculate the eGFR results. Performed By: #### M RSAPCR #### [place] [address] #### CVFLURV #### [address] [address] .MDWon 03-04-2025 Monocyte Distribution Width 17.56 Normal 0.00-20.00 [facility] Comment on above: Result Comment: For ED adult patients suspected of sepsis, MDW<=20.0 does not rule out sepsis or risk of sepsis Performed By: #### M RSAPCR #### [place] [address] #### CVFLURV #### [address] [address] .NEUABSon 03-04-2025 Neutrophil, Absolute 5.3 10 3/mcL Normal 2.3-8.1 [facility] Comment on above: Performed By: #### M RSAPCR #### [place] [address] #### CVFLURV #### [address] [address] BMPon 03-04-2025 BUN/Creatinine Ratio 18 ratio Normal 7-27 [facility] Comment on above: Performed By: #### M RSAPCR #### [place] [address] #### CVFLURV #### [address] [address] Calcium [Mass/Vol] 9.0 mg/dL Normal 8.4-10.2 [facility] Comment on above: Performed By: #### M RSAPCR #### [place] [address] #### CVFLURV #### [address] [address] Chloride [Moles/Vol] 106 mmol/L Normal 98-107 [facility] Comment on above: Performed By: #### M RSAPCR #### [place] [address] #### CVFLURV #### [address] [address] CO2 [Moles/Vol] 34 mmol/L High 23-31 [facility] Comment on above: Performed By: #### M RSAPCR #### [place] [address] #### CVFLURV #### [address] [address] Creatinine [Mass/Vol] 0.84 mg/dL Normal 0.51-0.95 [facility] Comment on above: Performed By: #### M RSAPCR #### [place] [address] #### CVFLURV #### [address] [address] Electrolyte Balance 3.0 mEq/L Low 4.0-15.0 [facility] [place] Comment on above: Performed By: #### M RSAPCR #### [place] [address] #### CVFLURV #### [address] [address] Glucose [Mass/Vol] 137 mg/dL High 80-115 [facility] Comment on above: Performed By: #### M RSAPCR #### [place] [address] #### CVFLURV #### [address] [address] Potassium [Moles/Vol] 4.1 mmol/L Normal 3.5-5.1 [facility] Comment on above: Performed By: #### M RSAPCR #### [place] [address] #### CVFLURV #### [address] [address] Sodium [Moles/Vol] 143 mmol/L Normal 136-145 [facility] Comment on above: Performed By: #### M RSAPCR #### [address] [address] #### CVFLURV #### [address] [address] Urea nitrogen [Mass/Vol] 15 mg/dL Normal 7-18 [facility] Comment on above: Performed By: #### M RSAPCR #### [address] [address] #### CVFLURV #### [address] [address] CBCon 03-04-2025 Erythrocyte distribution width (RBC) [Ratio] 16.9 % High 11.5-15.5 [facility] Comment on above: Performed By: #### A DIFF, PBNP, TROPHS, CBC, GFR, MDW, ANEU, BMP #### [address] [address] Hematocrit (Bld) [Volume fraction] 45.7 % Normal 34.0-46.0 [facility] Comment on above: Performed By: #### A DIFF, PBNP, TROPHS, CBC, GFR, MDW, ANEU, BMP #### [address] [address] Hgb 14.9 G/dL Normal 12.0-16.0 [facility] Comment on above: Performed By: #### A DIFF, PBNP, TROPHS, CBC, GFR, MDW, ANEU, BMP #### [address] [address] MCH (RBC) [Entitic mass] 30.0 pg Normal 27.0-33.0 [facility] Comment on above: Performed By: #### A DIFF, PBNP, TROPHS, CBC, GFR, MDW, ANEU, BMP #### [address] [address] MCHC 32.5 G/dL Normal 32.0-36.0 [facility] Comment on above: Performed By: #### A DIFF, PBNP, TROPHS, CBC, GFR, MDW, ANEU, BMP #### [address] [address] MCV (RBC) [Entitic vol] 92.2 fL Normal 80.0-99.0 [facility] Comment on above: Performed By: #### A DIFF, PBNP, TROPHS, CBC, GFR, MDW, ANEU, BMP #### [address] [address] Platelet 369 10 3/mcL Normal 150-450 [facility] Comment on above: Performed By: #### A DIFF, PBNP, TROPHS, CBC, GFR, MDW, ANEU, BMP #### [address] [address] Platelet mean volume (Bld) [Entitic vol] 8.1 fL Normal 6.6-10.5 [facility] Comment on above: Performed By: #### A DIFF, PBNP, TROPHS, CBC, GFR, MDW, ANEU, BMP #### [address] [address] RBC 4.95 10 6/mcL Normal 4.10-5.30 [facility] Comment on above: Performed By: #### A DIFF, PBNP, TROPHS, CBC, GFR, MDW, ANEU, BMP #### [address] [address] WBC 8.4 10 3/mcL Normal 4.5-10.8 [facility] Comment on above: Performed By: #### A DIFF, PBNP, TROPHS, CBC, GFR, MDW, ANEU, BMP #### [address] [address] CVFLURVon 03-04-2025 FLU A PCR Negative Normal Negative [facility] Comment on above: Result Comment: [place] [id number] Performed By: #### M RSAPCR #### [facility] [address] [place] [address] #### CVFLURV #### [address] [address] FLU B PCR Negative Normal Negative [facility] Comment on above: Result Comment: [place] [id number] Performed By: #### M RSAPCR #### [address] [address] #### CVFLURV #### [address] [address] RSV PCR Negative Normal Negative [facility] Comment on above: Result Comment: Note s [id number] Performed By: #### M RSAPCR #### [address] [address] #### CVFLURV #### [place] [address] [place], [place] [address] SARS-CoV-2 (COVID-19) RNA IVANA+probe Ql (Unsp spec) Negative Normal Negative [facility] Comment on above: Result Comment: Note s [id number] This test has been authorized by FDA under an EUA for use by authorized laboratories and has not been FDA cleared or approved. Results from the Xpert Xpress SARS-CoV-2/Flu/RSV or Xpert Xpress SARS-CoV-2 only test should be correlated with the clinical history, epidemiological data, and other data available to the clinician evaluating the patient. Performance of the Xpert Xpress SARS-CoV-2/Flu/RSV or Xpert Xpress SARS-CoV-2 only test has only been established in nasopharyngeal swab specimens. Erroneous test results might occur from improper specimen collection; failure to follow the recommended sample collection, handling, and storage procedures; technical error; or sample mix-up.False negative results may occur if virus is present at levels below the analytical limit of detection. Viral nucleic acid may persist in vivo, independent of virus viability. Detection of analyte target(s) does not imply that the corresponding virus(es) are infectious or are the causative agents for clinical symptoms.Recent patient exposure to FluMist or other live attenuated influenza vaccines may cause inaccurate positive results. Performed By: #### M RSAPCR #### [address] [address] #### CVFLURV #### [place] [address] [place] [id number] LABORATORYOrdered By: Guillermo Lebron on 03-04-2025 Adenovirus DNA IVANA+non-probe Ql (Nph) Not Detected *NA* (03/04/25 10:09 AM) Invalid Interpretation Code Not Detected AH Auto Viro/Sero SS B. parapertussis [id number] DNA IVANA+non-probe Ql (Nph) Not Detected *NA* (03/04/25 10:09 AM) Invalid Interpretation Code Not Detected AH Auto Viro/Sero SS B. pertussis toxin promoter region IVANA+non-probe Ql (Nph) Not Detected *NA* (03/04/25 10:09 AM) Invalid Interpretation Code Not Detected AH Auto Viro/Sero SS C. pneumoniae DNA IVANA+non-probe Ql (Nph) Not Detected *NA* (03/04/25 10:09 AM) Invalid Interpretation Code Not Detected AH Auto Viro/Sero SS FLUAV RNA IVANA+non-probe Ql (Nph) Not Detected *NA* (03/04/25 10:09 AM) Invalid Interpretation Code Not Detected AH Auto Viro/Sero SS FLUBV RNA IVANA+non-probe Ql (Nph) Not Detected *NA* (03/04/25 10:09 AM) Invalid Interpretation Code Not Detected AH Auto Viro/Sero SS hMPV RNA IVANA+non-probe Ql (Nph) Not Detected *NA* (03/04/25 10:09 AM) Invalid Interpretation Code Not Detected AH Auto Viro/Sero SS M. pneumoniae DNA IVANA+non-probe Ql (Nph) Not Detected *NA* (03/04/25 10:09 AM) Invalid Interpretation Code Not Detected AH Auto Viro/Sero SS Parainfluenza virus 1 RNA IVANA+non-probe Ql (Nph) Not Detected *NA* (03/04/25 10:09 AM) Invalid Interpretation Code Not Detected AH Auto Viro/Sero SS Parainfluenza virus 2 RNA IVANA+non-probe Ql (Nph) Not Detected *NA* (03/04/25 10:09 AM) Invalid Interpretation Code Not Detected AH Auto Viro/Sero SS Parainfluenza virus 3 RNA IVANA+non-probe Ql (Nph) Not Detected *NA* (03/04/25 10:09 AM) Invalid Interpretation Code Not Detected AH Auto Viro/Sero SS Parainfluenza virus 4 RNA IVANA+non-probe Ql (Nph) Not Detected *NA* (03/04/25 10:09 AM) Invalid Interpretation Code Not Detected AH Auto Viro/Sero SS Rhinovirus+Enterovirus RNA IVANA+non-probe Ql (Nph) Not Detected *NA* (03/04/25 10:09 AM) Invalid Interpretation Code Not Detected AH Auto Viro/Sero SS RSV RNA IVANA+non-probe Ql (Nph) Not Detected *NA* (03/04/25 10:09 AM) Invalid Interpretation Code Not Detected AH Auto Viro/Sero SS SARS-CoV-2 (COVID-19) RNA IVANA+probe Ql (Resp) Not Detected 3 *NA* (03/04/25 10:09 AM) Invalid Interpretation Code Not Detected AH Auto Viro/Sero SS Comment on above: Interpretive Data: T his assay has been validated in the [facility] for use with nasopharyngeal specimens in [facility]. If a non-validated specimen or test collection method was used, please interpret the results with caution, especially if the test result is negative. A positive test result for COVID-19 indicates that RNA from SARS-CoV-2 was detected, and the patient is infected with the virus and presumed to be contagious. Laboratory test results should always be considered in the context of clinical observations and epidemiological data in making a final diagnosis and patient management decisions. Patient management should follow current CDC guidelines. A negative test result for this test means that SARS-CoV-2 RNA was not present in the specimen above the limit of detection. However, a negative result does not rule out COVID-19 and should not be used as the sole basis for treatment or patient management decisions. A negative result does not exclude the possibility of COVID-19. When diagnostic testing is negative, the possibility of a false negative result should be considered in the context of a patient's recent exposures and the presence of clinical signs and symptoms consistent with COVID-19. The possibility of a false negative result should especially be considered if the patient s recent exposures or clinical presentation indicate that COVID-19 is likely, and diagnostic tests for other causes of illness (e.g., other respiratory illness) are negative. If COVID-19 is still suspected based on exposure history together with other clinical findings, re-testing should be considered by healthcare providers in consultation with public health authorities. LABORATORYOrdered By: Christopher Torres on 03-04-2025 FLUAV RNA IVANA+probe Ql (Resp) Negative 9 (03/04/25 10:09 AM) Normal Negative [facility] Auto [facility]/Sero SS Comment on above: [place]: [place] [id number] FLUBV RNA IVANA+probe Ql (Resp) Negative 10 (03/04/25 10:09 AM) Normal Negative [facility] Auto Viro/Sero SS Comment on above: Result Comment: [place] [id number] RSV PCR Negative 11 (03/04/25 10:09 AM) Normal Negative AH Auto Viro/Sero SS Comment on above: Result Comment: [place] [id number] SARS-CoV-2 (COVID-19) RNA IVANA+probe Ql (Resp) Negative 7, 8 (03/04/25 10:09 AM) Normal Negative AH Auto Viro/Sero SS Comment on above: Result Comment: Note s [id number] Interpretive Data: T his test has been authorized by FDA under an EUA for use by authorized laboratories and has not been FDA cleared or approved. Results from the Xpert Xpress SARS-CoV-2/Flu/RSV or Xpert Xpress SARS-CoV-2 only test should be correlated with the clinical history, epidemiological data, and other data available to the clinician evaluating the patient. Performance of the Xpert Xpress SARS-CoV-2/Flu/RSV or Xpert Xpress SARS-CoV-2 only test has only been established in nasopharyngeal swab specimens. Erroneous test results might occur from improper specimen collection; failure to follow the recommended sample collection, handling, and storage procedures; technical error; or sample mix-up.False negative results may occur if virus is present at levels below the analytical limit of detection. Viral nucleic acid may persist in vivo, independent of virus viability. Detection of analyte target(s) does not imply that the corresponding virus(es) are infectious or are the causative agents for clinical symptoms.Recent patient exposure to FluMist or other live attenuated influenza vaccines may cause inaccurate positive results. LABORATORYOrdered By: SYSTEM SYSTEM on 03-04-2025 Basophils (Bld) [#/Vol] 0.1 103/mcL Normal 0.0 - 0.3 10^3/mcL AO Workflow SS Basophils/100 WBC (Bld) 0.9 % Normal 0.0 - 2.5 % AO Workflow SS Calcium [Mass/Vol] 9.0 mg/dL Normal 8.4 - 10. 2 mg/dL AO ADM SS Chloride [Moles/Vol] 106 mmol/L Normal 98 - 10 7 mmol/L AO ADM SS CO2 [Moles/Vol] 34 mmol/L High 23 - 31 mmol/L AO ADM SS Creatinine [Mass/Vol] 0.84 mg/dL Normal 0.51 - 0.95 mg/dL AO ADM SS Electrolyte Balance 3.0 mEq/L Low 4.0 - 15 .0 mEq/L AO ADM SS Eosinophil, Absolute 0.2 103/mcL Normal 0.0 - 0 .7 10^3/mcL AO Workflow SS Eosinophils/100 WBC (Bld) 1.9 % Normal 0.0 - 6.0 % AO Workflow SS Erythrocyte distribution width (RBC) [Ratio] 16.9 % High 11.5 - 15.5 % AO Workflow SS Estimated Glomerular Filtration Rate 75 ml/min/1.73sqm Invalid Interpretation Code AO Chemistry S Comment on above: Interpretive Data: Stages of Chronic Kidney Disease (CKD) Stage Description eGFR(ml/min/1.73 sq.m.) CKD 1 Normal kidney function or >=90 normal kindney function with possible kidney damage (ex. Proteinuria) CKD 2 Kidney damage with mild loss 60-89 of kidney function CKD 3a Mild to moderate loss of kidney 45-59 function CKD 3b Moderate to severe loss of 30-44 of kindey function CKD 4 Severe loss of kidney function 15-29 CKD 5 Kidney failure <15 Note: (go live 2024) the eGFR calculation was updated to the 2020 CKD-EPI creatinine equation without a race factor to calculate the eGFR results. Glucose [Mass/Vol] 137 mg/dL High 80 - 115 mg/dL AO ADM SS Hematocrit (Bld) [Volume fraction] 45.7 % Normal 34.0 - 46.0 % AO Workflow SS Hemoglobin (Bld) [Mass/Vol] 14.9 G/dL Normal 12.0 - 16.0 G/dL AO Workflow SS Lymphocytes (Bld) [#/Vol] 1.9 103/mcL Normal 0.9 - 4.3 10^3/mcL AO Workflow SS Lymphocytes/100 WBC (Bld) 22.2 % Normal 20.0 - 40.0 % AO Workflow SS MCH (RBC) [Entitic mass] 30.0 pg Normal 27.0 - 33.0 pg AO Workflow SS MCHC 32.5 G/dL Normal 32.0 - 36.0 G/dL AO Workflow SS MCV (RBC) [Entitic vol] 92.2 fL Normal 80.0 - 99.0 fL AO Workflow SS Monocyte distribution width Auto (Bld) [Entitic vol] 17.56 1 Normal 0.00 - 20.00 AO Workflow SS Comment on above: Result Comment: For ED adult patients suspected of sepsis, MDW<=20.0 does not rule out sepsis or risk of sepsis Monocytes (Bld) [#/Vol] 1.0 103/mcL Normal 0.1 - 1.4 10^3/mcL AO Workflow SS Monocytes/100 WBC (Bld) 11.9 % Normal 2.0 - 13.0 % AO Workflow SS Natriuretic peptide.B prohormone N-Terminal [Mass/Vol] 2664 pg/mL High 0 - 125 pg/mL AO ADM SS Comment on above: Interpretive Data: N T-proBNP results of less than 300 pg/mL effectively rules out acute congestive heart failure with 99% negative predictive value. Neutrophils (Bld) [#/Vol] 5.3 103/mcL Normal 2.3 - 8.1 10^3/mcL AO Workflow SS Neutrophils/100 WBC (Bld) 63.1 % Normal 50.0 - 75.0 % AO Workflow SS Platelet mean volume (Bld) [Entitic vol] 8.1 fL Normal 6.6 - 10.5 fL AO Workflow SS Platelets (Bld) [#/Vol] 369 103/mcL Normal 150 - 450 10^3/mcL AO Workflow SS Potassium [Moles/Vol] 4.1 mmol/L Normal 3.5 - 5.1 mmol/L AO ADM SS RBC (Bld) [#/Vol] 4.95 106/mcL Normal 4.10 - 5.3 0 10^6/mcL AO Workflow SS Sodium [Moles/Vol] 143 mmol/L Normal 136 - 145 mmol/L AO ADM SS Troponin I.cardiac DL <= 0.01 ng/mL [Mass/Vol] 33 ng/L Normal 0 - 51 ng/L AO ADM SS Comment on above: Interpretive Data: H igh Sensitive Troponin I Reference Ranges: Female: 0-51 ng/L Male: 0-76 ng/L Testing performed on [employer] using a homogeneous sandwich chemiluminescent immunoassay based on [employer] technology. Urea nitrogen [Mass/Vol] 15 mg/dL Normal 7 - 18 mg/dL AO ADM SS Urea nitrogen/Creatinine [Mass ratio] 18 ratio Normal 7 - 27 ratio AO ADM SS WBC (Bld) [#/Vol] 8.4 103/mcL Normal 4.5 - 10.8 10^3/mcL AO Workflow SS PBNPon 03-04-2025 Natriuretic peptide B (Bld) [Mass/Vol] 2664 pg/mL High 0-125 [facility] Comment on above: Result Comment: NT-p roBNP results of less than 300 pg/mL effectively rules out acute congestive heart failure with 99% negative predictive value. Performed By: #### A DIFF, PBNP, TROPHS, CBC, GFR, MDW, ANEU, BMP #### [place] [address] RESCVIDon 03-04-2025 Adenovirus Not detected Normal Not Detected [facility] Comment on above: Performed By: #### M RSAPCR #### [place] [address] #### CVFLURV #### [place] [address] Bordetella Parapertussis Not detected Normal Not Detected [facility] Comment on above: Performed By: #### M RSAPCR #### [place] [address] #### CVFLURV #### [place] [address] Bordetella Pertussis Not detected Normal Not Detected [facility] Comment on above: Performed By: #### M RSAPCR #### [place] [address] #### CVFLURV #### [address] [address] Chlamydophila pneumoniae Not detected Normal Not Detected [facility] Comment on above: Performed By: #### M RSAPCR #### [place] [address] #### CVFLURV #### [place] [address] Coronavirus 229E (Not COVID-19) Not detected Normal Not Detected [facility] Comment on above: Performed By: #### M RSAPCR #### [place] [address] #### CVFLURV #### [address] [address] Coronavirus HKU1 (Not COVID-19) Not detected Normal Not Detected [facility] Comment on above: Performed By: #### M RSAPCR #### [place] [address] #### CVFLURV #### [address] [address] Coronavirus NL63 (Not COVID-19) Not detected Normal Not Detected [facility] Comment on above: Performed By: #### M RSAPCR #### [place] [address] #### CVFLURV #### [address] [address] Coronavirus OC43 (Not COVID-19) Not detected Normal Not Detected [facility] Comment on above: Performed By: #### M RSAPCR #### [place] [address] #### CVFLURV #### [address] [address] Human Metapneumovirus Not detected Normal Not Detected [facility] Comment on above: Performed By: #### M RSAPCR #### [place] [address] #### CVFLURV #### [address] [address] Influenza A Not detected Normal Not Detected [facility] Comment on above: Performed By: #### M RSAPCR #### [place] [id number] #### CVFLURV #### [address] [address] Influenza B Not detected Normal Not Detected [facility] Comment on above: Performed By: #### M RSAPCR #### [address] [place], [place] [address] #### CVFLURV #### [address] [address] Mycoplasma pneumoniae Not detected Normal Not Detected [facility] Comment on above: Performed By: #### M RSAPCR #### [facility] [address] [place] [address] #### CVFLURV #### [address] [address] Parainfluenza 1 Not detected Normal Not Detected [facility] Comment on above: Performed By: #### M RSAPCR #### [place] [id number] #### CVFLURV #### [address] [address] Parainfluenza 2 Not detected Normal Not Detected [facility] Comment on above: Performed By: #### M RSAPCR #### [place] [address] #### CVFLURV #### [address] [address] Parainfluenza 3 Not detected Normal Not Detected [facility] Comment on above: Performed By: #### M RSAPCR #### [address] [address] #### CVFLURV #### [address] [address] Parainfluenza 4 Not detected Normal Not Detected [facility] Comment on above: Performed By: #### M RSAPCR #### [facility] [address] [place] [address] #### CVFLURV #### [address] [address] Respiratory Syncytial Virus Not detected Normal Not Detected [facility] Comment on above: Performed By: #### M RSAPCR #### [address] [address] #### CVFLURV #### [address] [address] Rhinovirus/Enterovirus Not detected Normal Not Detected [facility] Comment on above: Performed By: #### M RSAPCR #### [address] [address] #### CVFLURV #### [address] [address] SARS-CoV-2 (COVID-19) RNA IVANA+probe Ql (Unsp spec) Not detected Normal Not Detected [facility] Comment on above: Result Comment: This assay has been validated in the [facility] for use with nasopharyngeal specimens in [facility]. If a non-validated specimen or test collection method was used, please interpret the results with caution, especially if the test result is negative. A positive test result for COVID-19 indicates that RNA from SARS-CoV-2 was detected, and the patient is infected with the virus and presumed to be contagious. Laboratory test results should always be considered in the context of clinical observations and epidemiological data in making a final diagnosis and patient management decisions. Patient management should follow current CDC guidelines. A negative test result for this test means that SARS-CoV-2 RNA was not present in the specimen above the limit of detection. However, a negative result does not rule out COVID-19 and should not be used as the sole basis for treatment or patient management decisions. A negative result does not exclude the possibility of COVID-19. When diagnostic testing is negative, the possibility of a false negative result should be considered in the context of a patient's recent exposures and the presence of clinical signs and symptoms consistent with COVID-19. The possibility of a false negative result should especially be considered if the patient???s recent exposures or clinical presentation indicate that COVID-19 is likely, and diagnostic tests for other causes of illness (e.g., other respiratory illness) are negative. If COVID-19 is still suspected based on exposure history together with other clinical findings, re-testing should be considered by healthcare providers in consultation with public health authorities. Performed By: #### M RSAPCR #### [address] [address] #### CVFLURV #### [place] [address] [place], [place] [address] [facility] 03-04-2025 High Sensitivity Troponin I 33 ng/L Normal 0-51 [facility] Comment on above: Result Comment: High Sensitive Troponin I Reference Ranges: Female: 0-51 ng/L Male: 0-76 ng/L Testing performed on [employer] using a homogeneous sandwich chemiluminescent immunoassay based on [employer] technology. Performed By: #### M RSAPCR #### [facility] [address] [place] [address] #### CVFLURV #### [place] [address] [place], [place] [address] XR CHEST 1 VIEWon 03-04-2025 XR CHEST 1 VIEW ORIGINAL EXAMINATION: ONE XRAY VIEW OF THE CHEST 03/04/2025 6:21 am COMPARISON: 02/19/2025 HISTORY: ORDERING SYSTEM PROVIDED HISTORY: Reason for Exam: dyspnea FINDINGS: Stable cardiomediastinal silhouette. No pleural effusion or pneumothorax. Radiolucencies within upper lung predominance. Interstitial prominence favors chronic. Postsurgical changes of the cervical spine. Remodeled left-sided rib deformities. IMPRESSION: No definite acute cardiopulmonary process. COPD/emphysematous changes. I have personally reviewed the images of this examination and agree with the resident's findings and interpretation. Interpreted by: Claude Campuzano MD Preliminary Report By: Krys Baltazar Electronically signed By Claude Campuzano MD Dictated Date: 03/04/2025 6:37:50 AM Prelim Date: 03/04/2025 6:39:30 AM Sign Date: 03/04/2025 6:41:45 AM Ordering Provider: EMMANUEL KILLIAN Normal [facility] MYCOon 02-21-2025 Mycoplasma IgM Negative [facility] Comment on above: Result Comment: INTE RPRETATION OF MYCOPLASMA IgM: Negative: IgM to M. pneumoniae Absent, or at levels below the assay limit of detection. Positive: IgM to M. pneumoniae Present. Invalid: Test results are invalid due to invalid internal control. Assay was performed in duplicate. Repeat testing is suggested if clinically indicated. Performed By: #### A DIFF, PBNP, TROPHS, CBC, GFR, MDW, ANEU, BMP #### [place] [address] [place], [place] [address] .Auto Diffon 02-20-2025 Basophil, Absolute 0.1 10 3/mcL Normal 0.0-0.3 [facility] Comment on above: Performed By: #### A DIFF, PBNP, TROPHS, CBC, GFR, MDW, ANEU, BMP #### [address] [address] Basophils/100 WBC (Bld) 1.4 % Normal 0.0-2.5 [facility] Comment on above: Performed By: #### A DIFF, PBNP, TROPHS, CBC, GFR, MDW, ANEU, BMP #### [address] [address] Eosinophil, Absolute 0.2 10 3/mcL Normal 0.0-0.7 [facility] Comment on above: Performed By: #### A DIFF, PBNP, TROPHS, CBC, GFR, MDW, ANEU, BMP #### [address] [address] Eosinophils/100 WBC (Bld) 2.3 % Normal 0.0-6.0 [facility] Comment on above: Performed By: #### A DIFF, PBNP, TROPHS, CBC, GFR, MDW, ANEU, BMP #### [address] [address] Lymphocyte, Absolute 1.9 10 3/mcL Normal 0.9-4.3 [facility] Comment on above: Performed By: #### A DIFF, PBNP, TROPHS, CBC, GFR, MDW, ANEU, BMP #### [address] [address] Lymphocytes/100 WBC (Bld) 28.3 % Normal 20.0-40.0 [facility] Comment on above: Performed By: #### A DIFF, PBNP, TROPHS, CBC, GFR, MDW, ANEU, BMP #### [address] [address] Monocyte, Absolute 1.0 10 3/mcL Normal 0.1-1.4 [facility] Comment on above: Performed By: #### A DIFF, PBNP, TROPHS, CBC, GFR, MDW, ANEU, BMP #### [address] [address] Monocytes/100 WBC (Bld) 14.2 % High 2.0-13.0 A [facility] Comment on above: Performed By: #### A DIFF, PBNP, TROPHS, CBC, GFR, MDW, ANEU, BMP #### [place] [address] [place], [place] [address] Neutrophils/100 WBC (Bld) 53.8 % Normal 50.0-75.0 [facility] [facility] Comment on above: Performed By: #### A DIFF, PBNP, TROPHS, CBC, GFR, MDW, ANEU, BMP #### [address] [address] .GFRon 02-20-2025 Estimated Glomerular Filtration Rate 88 ml/min/1.73sqm Normal [facility] Comment on above: Result Comment: Stages of Chronic Kidney Disease (CKD) Stage Description eGFR(ml/min/1.73 sq.m.) CKD 1 Normal kidney function or >=90 normal kindney function with possible kidney damage (ex. Proteinuria) CKD 2 Kidney damage with mild loss 60-89 of kidney function CKD 3a Mild to moderate loss of kidney 45-59 function CKD 3b Moderate to severe loss of 30-44 of kindey function CKD 4 Severe loss of kidney function 15-29 CKD 5 Kidney failure <15 Note: (go live 2024) the eGFR calculation was updated to the 2020 CKD-EPI creatinine equation without a race factor to calculate the eGFR results. Performed By: #### A DIFF, PBNP, TROPHS, CBC, GFR, MDW, ANEU, BMP #### [address] [address] .NEUABSon 02-20-2025 Neutrophil, Absolute 3.7 10 3/mcL Normal 2.3-8.1 [facility] Comment on above: Performed By: #### A DIFF, PBNP, TROPHS, CBC, GFR, MDW, ANEU, BMP #### [address] [address] BMPon 02-20-2025 BUN/Creatinine Ratio 22 ratio Normal 7-27 [facility] Comment on above: Performed By: #### A DIFF, PBNP, TROPHS, CBC, GFR, MDW, ANEU, BMP #### [address] [address] Calcium [Mass/Vol] 8.1 mg/dL Low 8.4-10.2 [facility] Comment on above: Performed By: #### A DIFF, PBNP, TROPHS, CBC, GFR, MDW, ANEU, BMP #### [address] [address] Chloride [Moles/Vol] 107 mmol/L Normal 98-107 [facility] Comment on above: Performed By: #### A DIFF, PBNP, TROPHS, CBC, GFR, MDW, ANEU, BMP #### [address] [address] CO2 [Moles/Vol] 32 mmol/L High 23-31 [facility] Comment on above: Performed By: #### A DIFF, PBNP, TROPHS, CBC, GFR, MDW, ANEU, BMP #### [address] [address] Creatinine [Mass/Vol] 0.74 mg/dL Normal 0.55-1.02 [facility] Comment on above: Result Comment: Test ing performed on Siemens Dimension EXL analyzer using a modified kinetic [place] technique. Performed By: #### A DIFF, PBNP, TROPHS, CBC, GFR, MDW, ANEU, BMP #### [address] [address] Electrolyte Balance 3.0 mEq/L Low 4.0-15.0 [facility] [place] Comment on above: Performed By: #### A DIFF, PBNP, TROPHS, CBC, GFR, MDW, ANEU, BMP #### [address] [address] Glucose [Mass/Vol] 105 mg/dL Normal 80-115 [facility] Comment on above: Performed By: #### A DIFF, PBNP, TROPHS, CBC, GFR, MDW, ANEU, BMP #### [address] [address] Potassium [Moles/Vol] 3.9 mmol/L Normal 3.5-5.1 [facility] Comment on above: Performed By: #### A DIFF, PBNP, TROPHS, CBC, GFR, MDW, ANEU, BMP #### [place] [address] [place] [id number] Sodium [Moles/Vol] 142 mmol/L Normal 136-145 [facility] Comment on above: Performed By: #### A DIFF, PBNP, TROPHS, CBC, GFR, MDW, ANEU, BMP #### [place] [phone] Urea nitrogen [Mass/Vol] 16 mg/dL Normal 7-18 [facility] Comment on above: Performed By: #### A DIFF, PBNP, TROPHS, CBC, GFR, MDW, ANEU, BMP #### [place] [id number] CBCon 02-20-2025 Erythrocyte distribution width (RBC) [Ratio] 16.1 % High 11.5-15.5 [facility] Comment on above: Performed By: #### A DIFF, PBNP, TROPHS, CBC, GFR, MDW, ANEU, BMP #### [address] [address] Hematocrit (Bld) [Volume fraction] 37.9 % Normal 34.0-46.0 [facility] Comment on above: Performed By: #### A DIFF, PBNP, TROPHS, CBC, GFR, MDW, ANEU, BMP #### [address] [address] Hgb 12.2 G/dL Normal 12.0-16.0 [facility] Comment on above: Performed By: #### A DIFF, PBNP, TROPHS, CBC, GFR, MDW, ANEU, BMP #### [address] [address] MCH (RBC) [Entitic mass] 29.4 pg Normal 27.0-33.0 [facility] Comment on above: Performed By: #### A DIFF, PBNP, TROPHS, CBC, GFR, MDW, ANEU, BMP #### [address] [address] MCHC 32.2 G/dL Normal 32.0-36.0 [facility] Comment on above: Performed By: #### A DIFF, PBNP, TROPHS, CBC, GFR, MDW, ANEU, BMP #### [address] [address] MCV (RBC) [Entitic vol] 91.2 fL Normal 80.0-99.0 [facility] Comment on above: Performed By: #### A DIFF, PBNP, TROPHS, CBC, GFR, MDW, ANEU, BMP #### [address] [address] Platelet 304 10 3/mcL Normal 150-450 [facility] Comment on above: Performed By: #### A DIFF, PBNP, TROPHS, CBC, GFR, MDW, ANEU, BMP #### [address] [address] Platelet mean volume (Bld) [Entitic vol] 8.4 fL Normal 6.6-10.5 [facility] Comment on above: Performed By: #### A DIFF, PBNP, TROPHS, CBC, GFR, MDW, ANEU, BMP #### [address] [address] RBC 4.16 10 6/mcL Normal 4.10-5.30 [facility] Comment on above: Performed By: #### A DIFF, PBNP, TROPHS, CBC, GFR, MDW, ANEU, BMP #### [address] [address] WBC 6.9 10 3/mcL Normal 4.5-10.8 [facility] Comment on above: Performed By: #### A DIFF, PBNP, TROPHS, CBC, GFR, MDW, ANEU, BMP #### [address] [address] MGon 02-20-2025 Magnesium [Mass/Vol] 1.6 mg/dL Low 1.8-2.4 [facility] Comment on above: Performed By: #### A DIFF, PBNP, TROPHS, CBC, GFR, MDW, ANEU, BMP #### [address] [address] MYCOon 02-20-2025 Mycoplasma IgG Positive Normal [facility] Comment on above: Result Comment: INTE RPRETATION OF MYCOPLASMA IgG BY EIA: Negative: No detectable M. pneumoniae IgG antibody. Positive: Mycoplasma pneumoniae IgG antibody Detected. Equivocal: Equivocal for IgG antibodies to Mycoplasma pneumoniae. Suggest repeat testing in 10-14 days. Performed By: #### A DIFF, PBNP, TROPHS, CBC, GFR, MDW, ANEU, BMP #### [address] [address] .Auto Diffon 02-19-2025 Basophil, Absolute 0.1 10 3/mcL Normal 0.0-0.3 [facility] Comment on above: Performed By: #### A DIFF, PBNP, TROPHS, CBC, GFR, MDW, ANEU, BMP #### [address] [address] Basophils/100 WBC (Bld) 0.6 % Normal 0.0-2.5 [facility] Comment on above: Performed By: #### A DIFF, PBNP, TROPHS, CBC, GFR, MDW, ANEU, BMP #### [address] [address] Eosinophil, Absolute 0.1 10 3/mcL Normal 0.0-0.7 [facility] Comment on above: Performed By: #### A DIFF, PBNP, TROPHS, CBC, GFR, MDW, ANEU, BMP #### [address] [address] Eosinophils/100 WBC (Bld) 0.6 % Normal 0.0-6.0 [facility] Comment on above: Performed By: #### A DIFF, PBNP, TROPHS, CBC, GFR, MDW, ANEU, BMP #### [address] [address] Lymphocyte, Absolute 1.7 10 3/mcL Normal 0.9-4.3 [facility] Comment on above: Performed By: #### A DIFF, PBNP, TROPHS, CBC, GFR, MDW, ANEU, BMP #### [address] [address] Lymphocytes/100 WBC (Bld) 17.7 % Low 20.0-40.0 [facility] Comment on above: Performed By: #### A DIFF, PBNP, TROPHS, CBC, GFR, MDW, ANEU, BMP #### [address] [address] Monocyte, Absolute 0.8 10 3/mcL Normal 0.1-1.4 [facility] Comment on above: Performed By: #### A DIFF, PBNP, TROPHS, CBC, GFR, MDW, ANEU, BMP #### [address] [address] Monocytes/100 WBC (Bld) 8.0 % Normal 2.0-13.0 [facility] Comment on above: Performed By: #### A DIFF, PBNP, TROPHS, CBC, GFR, MDW, ANEU, BMP #### [address] [address] Neutrophils/100 WBC (Bld) 73.1 % Normal 50.0-75.0 [facility] Comment on above: Performed By: #### A DIFF, PBNP, TROPHS, CBC, GFR, MDW, ANEU, BMP #### [address] [address] Basophil, Absolute 0.1 10 3/mcL Normal 0.0-0.3 [facility] Comment on above: Performed By: #### A DIFF, PBNP, TROPHS, CBC, GFR, MDW, ANEU, BMP #### [address] [address] Basophils/100 WBC (Bld) 0.7 % Normal 0.0-2.5 [facility] Comment on above: Performed By: #### A DIFF, PBNP, TROPHS, CBC, GFR, MDW, ANEU, BMP #### [address] [address] Eosinophil, Absolute 0.2 10 3/mcL Normal 0.0-0.7 [facility] Comment on above: Performed By: #### A DIFF, PBNP, TROPHS, CBC, GFR, MDW, ANEU, BMP #### [address] [address] Eosinophils/100 WBC (Bld) 1.7 % Normal 0.0-6.0 [facility] Comment on above: Performed By: #### A DIFF, PBNP, TROPHS, CBC, GFR, MDW, ANEU, BMP #### [address] [address] Lymphocyte, Absolute 2.3 10 3/mcL Normal 0.9-4.3 [facility] Comment on above: Performed By: #### A DIFF, PBNP, TROPHS, CBC, GFR, MDW, ANEU, BMP #### [address] [address] Lymphocytes/100 WBC (Bld) 21.0 % Normal 20.0-40.0 [facility] Comment on above: Performed By: #### A DIFF, PBNP, TROPHS, CBC, GFR, MDW, ANEU, BMP #### [address] [address] Monocyte, Absolute 1.0 10 3/mcL Normal 0.1-1.4 [facility] Comment on above: Performed By: #### A DIFF, PBNP, TROPHS, CBC, GFR, MDW, ANEU, BMP #### [address] [address] Monocytes/100 WBC (Bld) 9.2 % Normal 2.0-13.0 [facility] Comment on above: Performed By: #### A DIFF, PBNP, TROPHS, CBC, GFR, MDW, ANEU, BMP #### [address] [address] Neutrophils/100 WBC (Bld) 67.4 % Normal 50.0-75.0 [facility] Comment on above: Performed By: #### A DIFF, PBNP, TROPHS, CBC, GFR, MDRoshan, MARK, BMP #### [address] [address] .GFRon 02-19-2025 Estimated Glomerular Filtration Rate 90 ml/min/1.73sqm Normal [facility] Comment on above: Result Comment: Stages of Chronic Kidney Disease (CKD) Stage Description eGFR(ml/min/1.73 sq.m.) CKD 1 Normal kidney function or >=90 normal kindney function with possible kidney damage (ex. Proteinuria) CKD 2 Kidney damage with mild loss 60-89 of kidney function CKD 3a Mild to moderate loss of kidney 45-59 function CKD 3b Moderate to severe loss of 30-44 of kindey function CKD 4 Severe loss of kidney function 15-29 CKD 5 Kidney failure <15 Note: (go live 2024) the eGFR calculation was updated to the 2020 CKD-EPI creatinine equation without a race factor to calculate the eGFR results. Performed By: #### A DIFF, PBNP, TROPHS, CBC, GFR, MDRoshan, MARK, BMP #### [address] [address] Estimated Glomerular Filtration Rate 81 ml/min/1.73sqm Normal [facility] Comment on above: Result Comment: Stages of Chronic Kidney Disease (CKD) Stage Description eGFR(ml/min/1.73 sq.m.) CKD 1 Normal kidney function or >=90 normal kindney function with possible kidney damage (ex. Proteinuria) CKD 2 Kidney damage with mild loss 60-89 of kidney function CKD 3a Mild to moderate loss of kidney 45-59 function CKD 3b Moderate to severe loss of 30-44 of kindey function CKD 4 Severe loss of kidney function 15-29 CKD 5 Kidney failure <15 Note: (go live 2024) the eGFR calculation was updated to the 2020 CKD-EPI creatinine equation without a race factor to calculate the eGFR results. Performed By: #### A DIFF, PBNP, TROPHS, CBC, GFR, MDW, ANEU, BMP #### [address] [address] .MDWon 02-19-2025 Monocyte Distribution Width 18.70 Normal 0.00-20.00 [facility] Comment on above: Result Comment: For ED adult patients suspected of sepsis, MDW<=20.0 does not rule out sepsis or risk of sepsis Performed By: #### A DIFF, PBNP, TROPHS, CBC, GFR, MDW, ANEU, BMP #### [address] [address] .NEUABSon 02-19-2025 Neutrophil, Absolute 7.2 10 3/mcL Normal 2.3-8.1 [facility] Comment on above: Performed By: #### A DIFF, PBNP, TROPHS, CBC, GFR, MDW, ANEU, BMP #### [address] [address] Neutrophil, Absolute 7.3 10 3/mcL Normal 2.3-8.1 [facility] Comment on above: Performed By: #### A DIFF, PBNP, TROPHS, CBC, GFR, MDW, ANEU, BMP #### [address] [address] BMPon 02-19-2025 BUN/Creatinine Ratio 19 ratio Normal 7-27 [facility] Comment on above: Performed By: #### A DIFF, PBNP, TROPHS, CBC, GFR, MDW, ANEU, BMP #### [address] [address] Calcium [Mass/Vol] 8.2 mg/dL Low 8.4-10.2 [facility] Comment on above: Performed By: #### A DIFF, PBNP, TROPHS, CBC, GFR, MDW, ANEU, BMP #### [address] [address] Chloride [Moles/Vol] 108 mmol/L High 98-107 [facility] Comment on above: Performed By: #### A DIFF, PBNP, TROPHS, CBC, GFR, MDW, ANEU, BMP #### [address] [address] CO2 [Moles/Vol] 28 mmol/L Normal 23-31 [facility] Comment on above: Performed By: #### A DIFF, PBNP, TROPHS, CBC, GFR, MDW, ANEU, BMP #### [address] [address] Creatinine [Mass/Vol] 0.72 mg/dL Normal 0.55-1.02 [facility] Comment on above: Result Comment: Test ing performed on Siemens Dimension EXL analyzer using a modified kinetic [place] technique. Performed By: #### A DIFF, PBNP, TROPHS, CBC, GFR, MDW, ANEU, BMP #### [address] [address] Electrolyte Balance 7.0 mEq/L Normal 4.0-15.0 [facility] Comment on above: Performed By: #### A DIFF, PBNP, TROPHS, CBC, GFR, MDW, ANEU, BMP #### [address] [address] Glucose [Mass/Vol] 132 mg/dL High 80-115 [facility] Comment on above: Performed By: #### A DIFF, PBNP, TROPHS, CBC, GFR, MDW, ANEU, BMP #### [address] [address] Potassium [Moles/Vol] 4.7 mmol/L Normal 3.5-5.1 [facility] Comment on above: Performed By: #### A DIFF, PBNP, TROPHS, CBC, GFR, MDW, ANEU, BMP #### [address] [address] Sodium [Moles/Vol] 143 mmol/L Normal 136-145 [facility] Comment on above: Performed By: #### A DIFF, PBNP, TROPHS, CBC, GFR, MDW, ANEU, BMP #### [address] [address] Urea nitrogen [Mass/Vol] 14 mg/dL Normal 7-18 [facility] Comment on above: Performed By: #### A DIFF, PBNP, TROPHS, CBC, GFR, MDW, ANEU, BMP #### [address] [address] CBCon 02-19-2025 Erythrocyte distribution width (RBC) [Ratio] 15.7 % High 11.5-15.5 [facility] Comment on above: Performed By: #### A DIFF, PBNP, TROPHS, CBC, GFR, MDW, ANEU, BMP #### [place] [address] Hematocrit (Bld) [Volume fraction] 38.8 % Normal 34.0-46.0 [facility] Comment on above: Performed By: #### A DIFF, PBNP, TROPHS, CBC, GFR, MDW, ANEU, BMP #### [place] [address] Hgb 12.6 G/dL Normal 12.0-16.0 [facility] Comment on above: Performed By: #### A DIFF, PBNP, TROPHS, CBC, GFR, MDW, ANEU, BMP #### [place] [id number] MCH (RBC) [Entitic mass] 30.0 pg Normal 27.0-33.0 [facility] Comment on above: Performed By: #### A DIFF, PBNP, TROPHS, CBC, GFR, MDW, ANEU, BMP #### [place] [address] MCHC 32.5 G/dL Normal 32.0-36.0 [facility] Comment on above: Performed By: #### A DIFF, PBNP, TROPHS, CBC, GFR, MDW, ANEU, BMP #### [place] [phone] MCV (RBC) [Entitic vol] 92.2 fL Normal 80.0-99.0 [facility] Comment on above: Performed By: #### A DIFF, PBNP, TROPHS, CBC, GFR, MDW, ANEU, BMP #### [address] [address] Platelet 310 10 3/mcL Normal 150-450 [facility] Comment on above: Performed By: #### A DIFF, PBNP, TROPHS, CBC, GFR, MDW, ANEU, BMP #### [address] [address] Platelet mean volume (Bld) [Entitic vol] 8.6 fL Normal 6.6-10.5 [facility] Comment on above: Performed By: #### A DIFF, PBNP, TROPHS, CBC, GFR, MDW, ANEU, BMP #### [address] [address] RBC 4.21 10 6/mcL Normal 4.10-5.30 [facility] Comment on above: Performed By: #### A DIFF, PBNP, TROPHS, CBC, GFR, MDW, ANEU, BMP #### [address] [address] WBC 9.8 10 3/mcL Normal 4.5-10.8 [facility] Comment on above: Performed By: #### A DIFF, PBNP, TROPHS, CBC, GFR, MDW, ANEU, BMP #### [address] [address] Erythrocyte distribution width (RBC) [Ratio] 16.0 % High 11.5-15.5 [facility] Comment on above: Performed By: #### A DIFF, PBNP, TROPHS, CBC, GFR, MDW, ANEU, BMP #### [address] [address] Hematocrit (Bld) [Volume fraction] 39.3 % Normal 34.0-46.0 [facility] Comment on above: Performed By: #### A DIFF, PBNP, TROPHS, CBC, GFR, MDW, ANEU, BMP #### [address] [address] Hgb 12.8 G/dL Normal 12.0-16.0 [facility] Comment on above: Performed By: #### A DIFF, PBNP, TROPHS, CBC, GFR, MDW, ANEU, BMP #### [address] [address] MCH (RBC) [Entitic mass] 29.7 pg Normal 27.0-33.0 [facility] Comment on above: Performed By: #### A DIFF, PBNP, TROPHS, CBC, GFR, MDW, ANEU, BMP #### [address] [address] MCHC 32.6 G/dL Normal 32.0-36.0 [facility] Comment on above: Performed By: #### A DIFF, PBNP, TROPHS, CBC, GFR, MDW, ANEU, BMP #### [place] [address] MCV (RBC) [Entitic vol] 91.1 fL Normal 80.0-99.0 [facility] Comment on above: Performed By: #### A DIFF, PBNP, TROPHS, CBC, GFR, MDW, ANEU, BMP #### [address] [address] Platelet 327 10 3/mcL Normal 150-450 [facility] Comment on above: Performed By: #### A DIFF, PBNP, TROPHS, CBC, GFR, MDW, ANEU, BMP #### [place] [address] Platelet mean volume (Bld) [Entitic vol] 8.2 fL Normal 6.6-10.5 [facility] Comment on above: Performed By: #### A DIFF, PBNP, TROPHS, CBC, GFR, MDW, ANEU, BMP #### [place] [address] RBC 4.31 10 6/mcL Normal 4.10-5.30 [facility] Comment on above: Performed By: #### A DIFF, PBNP, TROPHS, CBC, GFR, MDW, ANEU, BMP #### [place] [address] WBC 10.8 10 3/mcL Normal 4.5-10.8 [facility] Comment on above: Performed By: #### A DIFF, PBNP, TROPHS, CBC, GFR, MDW, ANEU, BMP #### [address] [address] CMPon 02-19-2025 Albumin Level 3.3 G/dL Low 3.4-4.8 [facility] Comment on above: Performed By: #### A DIFF, PBNP, TROPHS, CBC, GFR, MDW, ANEU, BMP #### [address] [address] Albumin/Globulin [Mass ratio] 1.0 {ratio} Low 1.1-2.5 [facility] Comment on above: Performed By: #### A DIFF, PBNP, TROPHS, CBC, GFR, MDW, ANEU, BMP #### [address] [address] ALP [Catalytic activity/Vol] 104 U/L Normal 40-135 [facility] Comment on above: Performed By: #### A DIFF, PBNP, TROPHS, CBC, GFR, MDW, ANEU, BMP #### [address] [address] ALT [Catalytic activity/Vol] 36 U/L Normal 14-59 [facility] Comment on above: Performed By: #### A DIFF, PBNP, TROPHS, CBC, GFR, MDW, ANEU, BMP #### [address] [address] AST [Catalytic activity/Vol] 38 U/L Normal 10-40 [facility] Comment on above: Performed By: #### A DIFF, PBNP, TROPHS, CBC, GFR, MDW, ANEU, BMP #### [address] [address] Bili Total 0.2 mg/dL Normal 0.2-1.0 [facility] Comment on above: Result Comment: Use of this assay is not recommended for patients undergoing treatment with eltrombopag due to the potential for falsely elevated results. Performed By: #### A DIFF, PBNP, TROPHS, CBC, GFR, MDW, ANEU, BMP #### [address] [address] BUN/Creatinine Ratio 19 ratio Normal 7-27 [facility] Comment on above: Performed By: #### A DIFF, PBNP, TROPHS, CBC, GFR, MDW, ANEU, BMP #### [address] [address] Calcium [Mass/Vol] 8.2 mg/dL Low 8.4-10.2 [facility] Comment on above: Performed By: #### A DIFF, PBNP, TROPHS, CBC, GFR, MDW, ANEU, BMP #### [address] [address] Chloride [Moles/Vol] 106 mmol/L Normal 98-107 [facility] Comment on above: Performed By: #### A DIFF, PBNP, TROPHS, CBC, GFR, MDW, ANEU, BMP #### [address] [address] CO2 [Moles/Vol] 32 mmol/L High 23-31 [facility] Comment on above: Performed By: #### A DIFF, PBNP, TROPHS, CBC, GFR, MDW, ANEU, BMP #### [address] [address] Creatinine [Mass/Vol] 0.79 mg/dL Normal 0.55-1.02 [facility] Comment on above: Result Comment: Test ing performed on Siemens Dimension EXL analyzer using a modified kinetic [place] technique. Performed By: #### A DIFF, PBNP, TROPHS, CBC, GFR, MDW, ANEU, BMP #### [address] [address] Electrolyte Balance 4.0 mEq/L Normal 4.0-15.0 [facility] Comment on above: Performed By: #### A DIFF, PBNP, TROPHS, CBC, GFR, MDW, ANEU, BMP #### [address] [address] Globulin 3.2 G/dL Normal 1.5-3.8 [facility] Comment on above: Performed By: #### A DIFF, PBNP, TROPHS, CBC, GFR, MDW, ANEU, BMP #### [address] [address] Glucose [Mass/Vol] 114 mg/dL Normal 80-115 [facility] Comment on above: Performed By: #### A DIFF, PBNP, TROPHS, CBC, GFR, MDW, ANEU, BMP #### [address] [address] Potassium [Moles/Vol] 4.2 mmol/L Normal 3.5-5.1 [facility] Comment on above: Performed By: #### A DIFF, PBNP, TROPHS, CBC, GFR, MDW, ANEU, BMP #### [address] [address] Sodium [Moles/Vol] 142 mmol/L Normal 136-145 [facility] Comment on above: Performed By: #### A DIFF, PBNP, TROPHS, CBC, GFR, MDW, ANEU, BMP #### [address] [address] Total Protein 6.5 G/dL Normal 6.4-8.2 [facility] Comment on above: Performed By: #### A DIFF, PBNP, TROPHS, CBC, GFR, MDW, ANEU, BMP #### [address] [address] Urea nitrogen [Mass/Vol] 15 mg/dL Normal 7-18 [facility] Comment on above: Performed By: #### A DIFF, PBNP, TROPHS, CBC, GFR, MDW, ANEU, BMP #### [address] [address] CVFLURVon 02-19-2025 FLU A PCR Negative Normal Negative [facility] Comment on above: Performed By: #### M RSAPCR #### [place] [address] #### CVFLURV #### [place] [address] FLU B PCR Negative Normal Negative [facility] Comment on above: Performed By: #### M RSAPCR #### [address] [address] #### CVFLURV #### [place] [address] RSV PCR Negative Normal Negative [facility] Comment on above: Performed By: #### M RSAPCR #### [place] [address] #### CVFLURV #### [place] [address] SARS-CoV-2 (COVID-19) RNA IVANA+probe Ql (Unsp spec) Negative Normal Negative [facility] Comment on above: Result Comment: Resu lts from the Xpert Xpress CoV-2/Flu/RSV plus test should be correlated with the clinical history, epidemiological data, and other data available to the clinical evaluating the patient. Performance of the Xpert Xpress CoV-2/Flu/RSV plus test has only been established in nasopharyngeal swab specimen. Erroneous test results might occur from improper specimen collection, failure to follow the recommended sample collection, handling and storage procedures, technical error, or sample mix-up. False negative results may occur if a virus is present at a level below the analytical limit of detection. Viral nucleic acid may persist in vivo, independent of virus viability. Detection of analyte target(s) does not imply that the corresponding virus(es) are infectious or are the causative agents for clinical symptoms. Recent patient exposure to FluMist or other live attenuated influenza vaccines may cause inaccurate positive results. Performed By: #### M RSAPCR #### [place] [address] #### CVFLURV #### [place] [address] LACon 02-19-2025 Lactic Acid Lvl 1.1 mmol/L Normal 0.4-2.0 [facility] Comment on above: Performed By: #### A DIFF, PBNP, TROPHS, CBC, GFR, MDW, ANEU, BMP #### [address] [address] MGon 02-19-2025 Magnesium [Mass/Vol] 1.8 mg/dL Normal 1.8-2.4 [facility] Comment on above: Performed By: #### A DIFF, PBNP, TROPHS, CBC, GFR, MDW, ANEU, BMP #### [address] [id number] MRSAPCRon 02-19-2025 MRSA (PCR) Not detected Normal Not Detected [facility] Comment on above: Result Comment: [place] [id number] Performed By: #### M RSAPCR #### [place] [id number] #### CVFLURV #### [place] [address] MRSA PCR Int Normal [facility] Comment on above: Result Comment: MRSA DNA not detected by Real-Time Polymerase Chain Reaction (PCR). A negative result may be due to intermittent colonization. Colonization may vary depending on patient treatment, patient status, or exposure to high-risk environments. As with all PCR based in vitro diagnostic tests, extremely low levels of target below the limit of detection of the assay may be detected, but results may not be reproducible. See Below Performed By: #### M RSAPCR #### [place] [address] #### CVFLURV #### [address] [address] PBNPon 02-19-2025 Natriuretic peptide B (Bld) [Mass/Vol] 2711 pg/mL High 0-125 [facility] Comment on above: Result Comment: NT-p roBNP results of less than 300 pg/mL effectively rules out acute congestive heart failure with 99% negative predictive value. Performed By: #### A DIFF, PBNP, TROPHS, CBC, GFR, MDW, ANEU, BMP #### [place] [id number] RESCVIDon 02-19-2025 Adenovirus Not detected Normal Not Detected [facility] Comment on above: Performed By: #### M RSAPCR #### [place] [address] #### CVFLURV #### [address] [address] Bordetella Parapertussis Not detected Normal Not Detected [facility] Comment on above: Performed By: #### M RSAPCR #### [place] [address] #### CVFLURV #### [address] [address] Bordetella Pertussis Not detected Normal Not Detected [facility] Comment on above: Performed By: #### M RSAPCR #### [place] [address] #### CVFLURV #### [address] [address] Chlamydophila pneumoniae Not detected Normal Not Detected [facility] Comment on above: Performed By: #### M RSAPCR #### [place] [address] #### CVFLURV #### [address] [address] Coronavirus 229E (Not COVID-19) Not detected Normal Not Detected [facility] Comment on above: Performed By: #### M RSAPCR #### [place] [address] #### CVFLURV #### [address] [address] Coronavirus HKU1 (Not COVID-19) Not detected Normal Not Detected [facility] Comment on above: Performed By: #### M RSAPCR #### [place] [id number] #### CVFLURV #### [address] [address] Coronavirus NL63 (Not COVID-19) Not detected Normal Not Detected [facility] Comment on above: Performed By: #### M RSAPCR #### [facility] [address] [place] [address] #### CVFLURV #### [address] [address] Coronavirus OC43 (Not COVID-19) Not detected Normal Not Detected [facility] Comment on above: Performed By: #### M RSAPCR #### [facility] [address] [place], [place] [id number] #### CVFLURV #### [address] [address] Human Metapneumovirus Not detected Normal Not Detected [facility] Comment on above: Performed By: #### M RSAPCR #### [place] [id number] #### CVFLURV #### [address] [address] Influenza A Not detected Normal Not Detected [facility] Comment on above: Performed By: #### M RSAPCR #### [place] [id number] #### CVFLURV #### [address] [address] Influenza B Not detected Normal Not Detected [facility] Comment on above: Performed By: #### M RSAPCR #### [address] [address] #### CVFLURV #### [address] [address] Mycoplasma pneumoniae Not detected Normal Not Detected [facility] Comment on above: Performed By: #### M RSAPCR #### [facility] [address] [place] [address] #### CVFLURV #### [address] [address] Parainfluenza 1 Not detected Normal Not Detected [facility] Comment on above: Performed By: #### M RSAPCR #### [facility] [address] [place], [place] [id number] #### CVFLURV #### [address] [address] Parainfluenza 2 Not detected Normal Not Detected [facility] Comment on above: Performed By: #### M RSAPCR #### [place] [address] #### CVFLURV #### [address] [address] Parainfluenza 3 Not detected Normal Not Detected [facility] Comment on above: Performed By: #### M RSAPCR #### [place] [address] #### CVFLURV #### [address] [address] Parainfluenza 4 Not detected Normal Not Detected [facility] Comment on above: Performed By: #### M RSAPCR #### [place] [address] #### CVFLURV #### [address] [address] Respiratory Syncytial Virus Not detected Normal Not Detected [facility] Comment on above: Performed By: #### M RSAPCR #### [place] [address] #### CVFLURV #### [address] [address] Rhinovirus/Enterovirus Not detected Normal Not Detected [facility] Comment on above: Performed By: #### M RSAPCR #### [place] [address] #### CVFLURV #### [address] [address] SARS-CoV-2 (COVID-19) RNA IVANA+probe Ql (Unsp spec) Not detected Normal Not Detected [facility] Comment on above: Result Comment: This assay has been validated in the [facility] for use with nasopharyngeal specimens in [facility]. If a non-validated specimen or test collection method was used, please interpret the results with caution, especially if the test result is negative. A positive test result for COVID-19 indicates that RNA from SARS-CoV-2 was detected, and the patient is infected with the virus and presumed to be contagious. Laboratory test results should always be considered in the context of clinical observations and epidemiological data in making a final diagnosis and patient management decisions. Patient management should follow current CDC guidelines. A negative test result for this test means that SARS-CoV-2 RNA was not present in the specimen above the limit of detection. However, a negative result does not rule out COVID-19 and should not be used as the sole basis for treatment or patient management decisions. A negative result does not exclude the possibility of COVID-19. When diagnostic testing is negative, the possibility of a false negative result should be considered in the context of a patient's recent exposures and the presence of clinical signs and symptoms consistent with COVID-19. The possibility of a false negative result should especially be considered if the patient???s recent exposures or clinical presentation indicate that COVID-19 is likely, and diagnostic tests for other causes of illness (e.g., other respiratory illness) are negative. If COVID-19 is still suspected based on exposure history together with other clinical findings, re-testing should be considered by healthcare providers in consultation with public health authorities. Performed By: #### M RSAPCR #### [place] [address] #### CVFLURV #### [address] [address] [facility] 02-19-2025 High Sensitivity Troponin I 27 ng/L Normal 0-51 [facility] Comment on above: Result Comment: High Sensitive Troponin I Reference Ranges: Female: 0-51 ng/L Male: 0-76 ng/L Testing performed on [employer] using a homogeneous sandwich chemiluminescent immunoassay based on [employer] technology. Performed By: #### A DIFF, PBNP, TROPHS, CBC, GFR, MDW, ANEU, BMP #### [address] [address] XR CHEST 1 VIEWon 02-19-2025 XR CHEST 1 VIEW ORIGINAL EXAMINATION: ONE XRAY VIEW OF THE CHEST 02/19/2025 1:29 am COMPARISON: Chest x-ray on 12/23/2022 HISTORY: ORDERING SYSTEM PROVIDED HISTORY: Reason for Exam: SOB/cough/fever FINDINGS: The heart size is normal. The lungs are hyperexpanded and have emphysematous architecture. There is no acute lung infiltrate or pulmonary edema. No pleural fluid or pneumothorax is present. Healed fractures of left 7th and 8th ribs laterally are noted. Patient has had anterior cervical disc fusion. There is no acute skeletal abnormality. IMPRESSION: 1. Emphysema. 2. No acute findings. Interpreted by: Tanner Ayala MD Preliminary Report By: Tanner Ayala MD Electronically signed By Tanner Ayala MD Dictated Date: 02/19/2025 1:35:30 AM Prelim Date: 02/19/2025 1:37:16 AM Sign Date: 02/19/2025 1:37:16 AM Ordering Provider: CORNELIUS Rivero [facility] US ABDOMEN COMPLETEon 2024 US ABDOMEN COMPLETE ORIGINAL EXAMINATION: COMPLETE ABDOMINAL ULTRASOUND02/03/2025 9:38 am ULTRASOUND ABDOMEN COMPLETE, TECHNIQUE: This report is based on interpretation of permanently recorded ultrasound images. COMPARISON: Ultrasound 04/04/2014 HISTORY: ORDERING SYSTEM PROVIDED HISTORY: Reason for Exam: LUQ pain, FINDINGS: The liver is normal in size and echogenicity. No focal liver abnormality is seen. There is antegrade blood flow in the main portal vein.. There is no intrahepatic bile duct dilatation. The common duct 9 mm in its midportion with proximal and distal tapering. This is considered physiologic related to age and cholecystectomy.. The gallbladder is not seen surgically absent. The pancreas as visualized shows no focal lesion or mass.. The spleen is normal in size and echogenicity. No ascites. Limited survey images of the kidneys show normal cortical thickness and echogenicity. No pelvocaliectasis. There is a solid suprarenal mass of 2.7 x 3.0 x 2.8 cm that is isoechoic to the liver. This is seen and documented on the previous ultrasound also. 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 The aorta and IVC as visualized are not abnormally dilated. The aorta is atherosclerotic without aneurysm in the visualized portions.. IMPRESSION: No acute findings. No splenomegaly. Other incidental findings as described. Interpreted by: Ean Knott MD Preliminary Report By: Ean Knott MD Electronically signed By Ean Knott MD Dictated Date: 02/03/2025 11:47:18 AM Prelim Date: 02/03/2025 11:50:40 AM Sign Date: 02/03/2025 11:50:40 AM Ordering Provider: EMMA Rivero [facility] .Auto Diffon 12-11-2024 Basophil, Absolute 0.1 10 3/mcL Normal 0.0-0.2 [facility] Comment on above: Performed By: #### M RSAPCR #### [place] [address] #### CVFLURV #### [address] [address] Basophils/100 WBC (Bld) 1.4 % Normal 0.0-2.5 [facility] Comment on above: Performed By: #### M RSAPCR #### [place] [address] #### CVFLURV #### [address] [address] Eosinophil, Absolute 0.2 10 3/mcL Normal 0.0-0.7 [facility] Comment on above: Performed By: #### M RSAPCR #### [place] [address] #### CVFLURV #### [address] [address] Eosinophils/100 WBC (Bld) 2.8 % Normal 0.0-7.0 [facility] Comment on above: Performed By: #### M RSAPCR #### [place] [address] #### CVFLURV #### [address] [address] Lymphocyte, Absolute 2.1 10 3/mcL Normal 0.9-4.3 [facility] Comment on above: Performed By: #### M RSAPCR #### [place] [address] #### CVFLURV #### [address] [address] Lymphocytes/100 WBC (Bld) 29.6 % Normal 20.0-40.0 [facility] Comment on above: Performed By: #### M RSAPCR #### [address] [address] #### CVFLURV #### [address] [address] Monocyte, Absolute 0.8 10 3/mcL Normal 0.1-1.4 [facility] Comment on above: Performed By: #### M RSAPCR #### [place] [address] #### CVFLURV #### [address] [address] Monocytes/100 WBC (Bld) 11.4 % Normal 2.0-13.0 [facility] Comment on above: Performed By: #### M RSAPCR #### [place] [address] #### CVFLURV #### [address] [address] Neutrophils/100 WBC (Bld) 54.8 % Normal 50.0-75.0 [facility] Comment on above: Performed By: #### M RSAPCR #### [place] [address] #### CVFLURV #### [address] [address] .GFRon 12-11-2024 GFR Non- 56 ml/min/1.73sqm Normal [facility] Comment on above: Result Comment: GFR Population mean for , Non- Americans Ages 20-29 = 116 mL/min/1.73 sq.m. Ages 30-39 = 107 mL/min/1.73 sq.m. Ages 40-49 = 99 mL/min/1.73 sq.m. Ages 50-59 = 93 mL/min/1.73 sq.m. Ages 60-69 = 85 mL/min/1.73 sq.m. Ages 70+ = 75 mL/min/1.73 sq.m. Chronic Kidney Disease: Less than 60 mL/min/1.73 square meters End Stage Renal Disease: Less than 15 mL/min/1.73 square meters Performed By: #### A DIFF, PBNP, TROPHS, CBC, GFR, MDW, ANEU, BMP #### [address] [address] GFR 67 ml/min/1.73sqm Normal [facility] Comment on above: Result Comment: GFR Population mean for , Non- Americans Ages 20-29 = 116 mL/min/1.73 sq.m. Ages 30-39 = 107 mL/min/1.73 sq.m. Ages 40-49 = 99 mL/min/1.73 sq.m. Ages 50-59 = 93 mL/min/1.73 sq.m. Ages 60-69 = 85 mL/min/1.73 sq.m. Ages 70+ = 75 mL/min/1.73 sq.m. Chronic Kidney Disease: Less than 60 mL/min/1.73 square meters End Stage Renal Disease: Less than 15 mL/min/1.73 square meters Performed By: #### A DIFF, PBNP, TROPHS, CBC, GFR, MDW, ANEU, BMP #### [address] [address] .NEUABSon 12-11-2024 Neutrophil, Absolute 3.9 10 3/mcL Normal 2.3-8.1 [facility] Comment on above: Performed By: #### M RSAPCR #### [address] [address] #### CVFLURV #### [address] [address] BMPon 12-11-2024 BUN/Creatinine Ratio 14 ratio Normal 7-27 [facility] Comment on above: Performed By: #### A DIFF, PBNP, TROPHS, CBC, GFR, MDW, ANEU, BMP #### [address] [address] Chloride [Moles/Vol] 105 mmol/L Normal 98-107 [facility] Comment on above: Performed By: #### A DIFF, PBNP, TROPHS, CBC, GFR, MDW, ANEU, BMP #### [address] [address] CO2 [Moles/Vol] 30 mmol/L Normal 23-31 [facility] Comment on above: Performed By: #### A DIFF, PBNP, TROPHS, CBC, GFR, MDW, ANEU, BMP #### [address] [address] Creatinine [Mass/Vol] 0.99 mg/dL Normal 0.55-1.02 [facility] Comment on above: Result Comment: Test ing performed on Siemens Dimension EXL analyzer using a modified kinetic [place] technique. Performed By: #### A DIFF, PBNP, TROPHS, CBC, GFR, MDW, ANEU, BMP #### [address] [address] Electrolyte Balance 8.0 mEq/L Normal 4.0-15.0 [facility] Comment on above: Performed By: #### A DIFF, PBNP, TROPHS, CBC, GFR, MDW, ANEU, BMP #### [address] [address] Glucose [Mass/Vol] 117 mg/dL High 80-115 [facility] Comment on above: Performed By: #### A DIFF, PBNP, TROPHS, CBC, GFR, MDW, ANEU, BMP #### [address] [address] Potassium [Moles/Vol] 4.7 mmol/L Normal 3.5-5.1 [facility] Comment on above: Performed By: #### A DIFF, PBNP, TROPHS, CBC, GFR, MDW, ANEU, BMP #### [address] [address] Sodium [Moles/Vol] 143 mmol/L Normal 136-145 [facility] Comment on above: Performed By: #### A DIFF, PBNP, TROPHS, CBC, GFR, MDW, ANEU, BMP #### [address] [place] [address] Urea nitrogen [Mass/Vol] 14 mg/dL Normal 7-18 [facility] Comment on above: Performed By: #### A DIFF, PBNP, TROPHS, CBC, GFR, MDW, ANEU, BMP #### [address] [address] Calcium [Mass/Vol] 9.8 mg/dL Normal 8.4-10.2 [facility] Comment on above: Performed By: #### A DIFF, PBNP, TROPHS, CBC, GFR, MDW, ANEU, BMP #### [address] [address] CBCon 12-11-2024 Erythrocyte distribution width (RBC) [Ratio] 14.6 % Normal 11.5-15.5 [facility] Comment on above: Performed By: #### M RSAPCR #### [place] [address] #### CVFLURV #### [address] [address] Hematocrit (Bld) [Volume fraction] 48.2 % High 34.0-46.0 [facility] Comment on above: Performed By: #### M RSAPCR #### [place] [address] #### CVFLURV #### [address] [address] Hgb 15.6 G/dL Normal 12.0-16.0 [facility] Comment on above: Performed By: #### M RSAPCR #### [place] [address] #### CVFLURV #### [address] [address] MCH (RBC) [Entitic mass] 30.5 pg Normal 27.0-33.0 [facility] Comment on above: Performed By: #### M RSAPCR #### [place] [address] #### CVFLURV #### [address] [address] MCHC 32.4 G/dL Normal 32.0-36.0 [facility] Comment on above: Performed By: #### M RSAPCR #### [place] [address] #### CVFLURV #### [address] [address] MCV (RBC) [Entitic vol] 94.2 fL Normal 80.0-99.0 [facility] Comment on above: Performed By: #### M RSAPCR #### [place] [address] #### CVFLURV #### [address] [address] Platelet 370 10 3/mcL Normal 150-450 [facility] Comment on above: Performed By: #### M RSAPCR #### [place] [address] #### CVFLURV #### [address] [address] Platelet mean volume (Bld) [Entitic vol] 9.1 fL Normal 6.6-10.5 [facility] Comment on above: Performed By: #### M RSAPCR #### [place] [address] #### CVFLURV #### [place] [address] RBC 5.12 10 6/mcL Normal 4.10-5.30 [facility] Comment on above: Performed By: #### M RSAPCR #### [place] [address] #### CVFLURV #### [place] [address] WBC 7.0 10 3/mcL Normal 4.5-10.8 [facility] Comment on above: Performed By: #### M RSAPCR #### [place] [address] #### CVFLURV #### [facility] [address] [place], [place] [address] LABORATORYOrdered By: SYSTEM SYSTEM on 12-11-2024 Basophils (Bld) [#/Vol] 0.1 103/mcL Normal 0.0 - 0.2 10^3/mcL AO Workflow SS Basophils/100 WBC (Bld) 1.4 % Normal 0.0 - 2.5 % AO Workflow SS Calcium [Mass/Vol] 9.8 mg/dL Normal 8.4 - 10. 2 mg/dL AO ADM SS Chloride [Moles/Vol] 105 mmol/L Normal 98 - 10 7 mmol/L AO ADM SS CO2 [Moles/Vol] 30 mmol/L Normal 23 - 31 mmol/L AO ADM SS Creatinine [Mass/Vol] 0.99 mg/dL Normal 0.55 - 1.02 mg/dL AO ADM SS Comment on above: Interpretive Data: T esting performed on Siemens Dimension EXL analyzer using a modified kinetic [place] technique. Electrolyte Balance 8.0 mEq/L Normal 4.0 - 15 .0 mEq/L AO ADM SS Eosinophil, Absolute 0.2 103/mcL Normal 0.0 - 0 .7 10^3/mcL AO Workflow SS Eosinophils/100 WBC (Bld) 2.8 % Normal 0.0 - 7.0 % AO Workflow SS Erythrocyte distribution width (RBC) [Ratio] 14.6 % Normal 11.5 - 15.5 % AO Workflow SS GFR/1.73 sq M.predicted among blacks MDRD (S/P/Bld) [Vol rate/Area] 67 ml/min/1.73sqm Invalid Interpretation Code AO Chemistry S Comment on above: Interpretive Data: GFR Population mean for , Non- Americans Ages 20-29 = 116 mL/min/1.73 sq.m. Ages 30-39 = 107 mL/min/1.73 sq.m. Ages 40-49 = 99 mL/min/1.73 sq.m. Ages 50-59 = 93 mL/min/1.73 sq.m. Ages 60-69 = 85 mL/min/1.73 sq.m. Ages 70+ = 75 mL/min/1.73 sq.m. Chronic Kidney Disease: Less than 60 mL/min/1.73 square meters End Stage Renal Disease: Less than 15 mL/min/1.73 square meters GFR/1.73 sq M.predicted among non-blacks MDRD (S/P/Bld) [Vol rate/Area] 56 ml/min/1.73sqm Invalid Interpretation Code AO Chemistry S Comment on above: Interpretive Data: GFR Population mean for , Non- Americans Ages 20-29 = 116 mL/min/1.73 sq.m. Ages 30-39 = 107 mL/min/1.73 sq.m. Ages 40-49 = 99 mL/min/1.73 sq.m. Ages 50-59 = 93 mL/min/1.73 sq.m. Ages 60-69 = 85 mL/min/1.73 sq.m. Ages 70+ = 75 mL/min/1.73 sq.m. Chronic Kidney Disease: Less than 60 mL/min/1.73 square meters End Stage Renal Disease: Less than 15 mL/min/1.73 square meters Glucose [Mass/Vol] 117 mg/dL High 80 - 115 mg/dL AO ADM SS Hematocrit (Bld) [Volume fraction] 48.2 % High 34.0 - 46.0 % AO Workflow SS Hemoglobin (Bld) [Mass/Vol] 15.6 G/dL Normal 12.0 - 16.0 G/dL AO Workflow SS INR Coag (PPP) [Relative time] 0.9 {INR} Invalid Interpretation Code AO [facility] SS Comment on above: Interpretive Data: Luis reinoso [employer] [employer] (CHEST, 1992, 102:312S-25S) recommended therapeutic range for oral anticoagulant therapy is: LOW RISK: Prophylaxis of venous thrombosis INR: 2.0-3.0 Treatment of pulmonary embolism 2.0-3.0 Prevention of systemic embolism 2.0-3.0 HIGH RISK: Mechanical prosthetic valves 2.5-3.5 Lymphocytes (Bld) [#/Vol] 2.1 103/mcL Normal 0.9 - 4.3 10^3/mcL AO Workflow SS Lymphocytes/100 WBC (Bld) 29.6 % Normal 20.0 - 40.0 % AO Workflow SS MCH (RBC) [Entitic mass] 30.5 pg Normal 27.0 - 33.0 pg AO Workflow SS MCHC 32.4 G/dL Normal 32.0 - 36.0 G/dL AO Workflow SS MCV (RBC) [Entitic vol] 94.2 fL Normal 80.0 - 99.0 fL AO Workflow SS Monocytes (Bld) [#/Vol] 0.8 103/mcL Normal 0.1 - 1.4 10^3/mcL AO Workflow SS Monocytes/100 WBC (Bld) 11.4 % Normal 2.0 - 13.0 % AO Workflow SS Neutrophils (Bld) [#/Vol] 3.9 103/mcL Normal 2.3 - 8.1 10^3/mcL AO Workflow SS Neutrophils/100 WBC (Bld) 54.8 % Normal 50.0 - 75.0 % AO Workflow SS Platelet mean volume (Bld) [Entitic vol] 9.1 fL Normal 6.6 - 10.5 fL AO Workflow SS Platelets (Bld) [#/Vol] 370 103/mcL Normal 150 - 450 10^3/mcL AO Workflow SS Potassium [Moles/Vol] 4.7 mmol/L Normal 3.5 - 5.1 mmol/L AO ADM SS PT Coag (PPP) [Time] 10.4 s Normal 9.0 - 1 4.4 seconds AO HemoHub SS RBC (Bld) [#/Vol] 5.12 106/mcL Normal 4.10 - 5.3 0 10^6/mcL AO Workflow SS Sodium [Moles/Vol] 143 mmol/L Normal 136 - 145 mmol/L AO ADM SS Urea nitrogen [Mass/Vol] 14 mg/dL Normal 7 - 18 mg/dL AO ADM SS Urea nitrogen/Creatinine [Mass ratio] 14 ratio Normal 7 - 27 ratio AO ADM SS WBC (Bld) [#/Vol] 7.0 103/mcL Normal 4.5 - 10.8 10^3/mcL AO Workflow SS PROon 12-11-2024 PT Coag (PPP) [Time] 10.4 s Normal 9.0-14.4 [facility] Comment on above: Performed By: #### M RSAPCR #### [address] [address] #### CVFLURV #### [facility] [address] [place], [place] [address] PT International Ratio 0.9 Normal [facility] Comment on above: Result Comment: [employer] [place] [employer] (CHEST, 1992, 102:312S-25S) recommended therapeutic range for oral anticoagulant therapy is: LOW RISK: Prophylaxis of venous thrombosis INR: 2.0-3.0 Treatment of pulmonary embolism 2.0-3.0 Prevention of systemic embolism 2.0-3.0 HIGH RISK: Mechanical prosthetic valves 2.5-3.5 Performed By: #### M RSAPCR #### [facility] [address] [place] [address] #### CVFLURV #### [address] [address] .Auto Diffon 10-23-2024 Basophil, Absolute 0.1 10 3/mcL Normal 0.0-0.2 [facility] Comment on above: Performed By: #### A DIFF, PBNP, TROPHS, CBC, GFR, MDW, ANEU, BMP #### [address] [address] Basophils/100 WBC (Bld) 1.7 % Normal 0.0-2.5 [facility] Comment on above: Performed By: #### A DIFF, PBNP, TROPHS, CBC, GFR, MDW, ANEU, BMP #### [address] [address] Eosinophil, Absolute 0.1 10 3/mcL Normal 0.0-0.7 [facility] Comment on above: Performed By: #### A DIFF, PBNP, TROPHS, CBC, GFR, MDW, ANEU, BMP #### [address] [address] Eosinophils/100 WBC (Bld) 2.2 % Normal 0.0-7.0 [facility] Comment on above: Performed By: #### A DIFF, PBNP, TROPHS, CBC, GFR, MDW, ANEU, BMP #### [address] [address] Lymphocyte, Absolute 2.0 10 3/mcL Normal 0.9-4.3 [facility] Comment on above: Performed By: #### A DIFF, PBNP, TROPHS, CBC, GFR, MDW, ANEU, BMP #### [address] [address] Lymphocytes/100 WBC (Bld) 31.1 % Normal 20.0-40.0 [facility] Comment on above: Performed By: #### A DIFF, PBNP, TROPHS, CBC, GFR, MDW, ANEU, BMP #### [address] [address] Monocyte, Absolute 0.8 10 3/mcL Normal 0.1-1.4 [facility] Comment on above: Performed By: #### A DIFF, PBNP, TROPHS, CBC, GFR, MDW, ANEU, BMP #### [address] [address] Monocytes/100 WBC (Bld) 12.1 % Normal 2.0-13.0 [facility] Comment on above: Performed By: #### A DIFF, PBNP, TROPHS, CBC, GFR, MDW, ANEU, BMP #### [address] [address] Neutrophils/100 WBC (Bld) 52.9 % Normal 50.0-75.0 [facility] Comment on above: Performed By: #### A DIFF, PBNP, TROPHS, CBC, GFR, MDW, ANEU, BMP #### [address] [address] .GFRon 10-23-2024 GFR 102 ml/min/1.73sqm Normal [facility] Comment on above: Result Comment: GFR Population mean for , Non- Americans Ages 20-29 = 116 mL/min/1.73 sq.m. Ages 30-39 = 107 mL/min/1.73 sq.m. Ages 40-49 = 99 mL/min/1.73 sq.m. Ages 50-59 = 93 mL/min/1.73 sq.m. Ages 60-69 = 85 mL/min/1.73 sq.m. Ages 70+ = 75 mL/min/1.73 sq.m. Chronic Kidney Disease: Less than 60 mL/min/1.73 square meters End Stage Renal Disease: Less than 15 mL/min/1.73 square meters Performed By: #### A DIFF, PBNP, TROPHS, CBC, GFR, MDW, ANEU, BMP #### [address] [address] GFR Non- 84 ml/min/1.73sqm Normal [facility] Comment on above: Result Comment: GFR Population mean for , Non- Americans Ages 20-29 = 116 mL/min/1.73 sq.m. Ages 30-39 = 107 mL/min/1.73 sq.m. Ages 40-49 = 99 mL/min/1.73 sq.m. Ages 50-59 = 93 mL/min/1.73 sq.m. Ages 60-69 = 85 mL/min/1.73 sq.m. Ages 70+ = 75 mL/min/1.73 sq.m. Chronic Kidney Disease: Less than 60 mL/min/1.73 square meters End Stage Renal Disease: Less than 15 mL/min/1.73 square meters Performed By: #### A DIFF, PBNP, TROPHS, CBC, GFR, MDW, ANEU, BMP #### [address] [address] .NEUABSon 10-23-2024 Neutrophil, Absolute 3.4 10 3/mcL Normal 2.3-8.1 [facility] Comment on above: Performed By: #### A DIFF, PBNP, TROPHS, CBC, GFR, MDW, ANEU, BMP #### [address] [address] A1Con 10-23-2024 Glucose [Mass/Vol] 117 mg/dL Normal [facility] Comment on above: Result Comment: Johnna mated Average Glucose calculated by equation ((28.7xA1C)-46.7) Estimated average glucose (eAG) is a calculated value from Hemoglobin A1C and is licensing representative of the average blood glucose level in the last 2-3 month period. Normal range: less than 114 mg/dL Performed By: #### A DIFF, PBNP, TROPHS, CBC, GFR, MDW, ANEU, BMP #### [address] [address] HbA1c (Bld) [Mass fraction] 5.7 % Normal 4.3-6.4 [facility] Comment on above: Performed By: #### A DIFF, PBNP, TROPHS, CBC, GFR, MDW, ANEU, BMP #### [address] [address] CBCon 10-23-2024 Erythrocyte distribution width (RBC) [Ratio] 14.8 % Normal 11.5-15.5 [facility] Comment on above: Performed By: #### A DIFF, PBNP, TROPHS, CBC, GFR, MDW, ANEU, BMP #### [address] [address] Hematocrit (Bld) [Volume fraction] 44.0 % Normal 34.0-46.0 [facility] Comment on above: Performed By: #### A DIFF, PBNP, TROPHS, CBC, GFR, MDW, ANEU, BMP #### [address] [address] Hgb 14.5 G/dL Normal 12.0-16.0 [facility] Comment on above: Performed By: #### A DIFF, PBNP, TROPHS, CBC, GFR, MDW, ANEU, BMP #### [address] [address] MCH (RBC) [Entitic mass] 31.5 pg Normal 27.0-33.0 [facility] Comment on above: Performed By: #### A DIFF, PBNP, TROPHS, CBC, GFR, MDW, ANEU, BMP #### [address] [address] MCHC 32.9 G/dL Normal 32.0-36.0 [facility] Comment on above: Performed By: #### A DIFF, PBNP, TROPHS, CBC, GFR, MDW, ANEU, BMP #### [address] [address] MCV (RBC) [Entitic vol] 95.6 fL Normal 80.0-99.0 [facility] Comment on above: Performed By: #### A DIFF, PBNP, TROPHS, CBC, GFR, MDW, ANEU, BMP #### [address] [address] Platelet 365 10 3/mcL Normal 150-450 [facility] Comment on above: Performed By: #### A DIFF, PBNP, TROPHS, CBC, GFR, MDW, ANEU, BMP #### [address] [address] Platelet mean volume (Bld) [Entitic vol] 8.8 fL Normal 6.6-10.5 [facility] Comment on above: Performed By: #### A DIFF, PBNP, TROPHS, CBC, GFR, MDW, ANEU, BMP #### [address] [address] RBC 4.60 10 6/mcL Normal 4.10-5.30 [facility] Comment on above: Performed By: #### A DIFF, PBNP, TROPHS, CBC, GFR, MDW, ANEU, BMP #### [address] [address] WBC 6.5 10 3/mcL Normal 4.5-10.8 [facility] Comment on above: Performed By: #### A DIFF, PBNP, TROPHS, CBC, GFR, MDW, ANEU, BMP #### [address] [address] CMPon 10-23-2024 Albumin Level 3.4 G/dL Normal 3.4-4.8 [facility] Comment on above: Performed By: #### A DIFF, PBNP, TROPHS, CBC, GFR, MDW, ANEU, BMP #### [address] [address] Albumin/Globulin [Mass ratio] 1.0 {ratio} Low 1.1-2.5 [facility] Comment on above: Performed By: #### A DIFF, PBNP, TROPHS, CBC, GFR, MDW, ANEU, BMP #### [address] [address] ALP [Catalytic activity/Vol] 99 U/L Normal 40-135 [facility] Comment on above: Performed By: #### A DIFF, PBNP, TROPHS, CBC, GFR, MDW, ANEU, BMP #### [address] [address] ALT [Catalytic activity/Vol] 19 U/L Normal 14-59 [facility] Comment on above: Performed By: #### A DIFF, PBNP, TROPHS, CBC, GFR, MDW, ANEU, BMP #### [address] [address] AST [Catalytic activity/Vol] 17 U/L Normal 10-40 [facility] Comment on above: Performed By: #### A DIFF, PBNP, TROPHS, CBC, GFR, MDW, ANEU, BMP #### [address] [address] Bili Total 0.4 mg/dL Normal 0.2-1.0 [facility] Comment on above: Result Comment: Use of this assay is not recommended for patients undergoing treatment with eltrombopag due to the potential for falsely elevated results. Performed By: #### A DIFF, PBNP, TROPHS, CBC, GFR, MDW, ANEU, BMP #### [address] [address] BUN/Creatinine Ratio 10 ratio Normal 7-27 [facility] Comment on above: Performed By: #### A DIFF, PBNP, TROPHS, CBC, GFR, MDW, ANEU, BMP #### [address] [address] Calcium [Mass/Vol] 9.2 mg/dL Normal 8.4-10.2 [facility] Comment on above: Performed By: #### A DIFF, PBNP, TROPHS, CBC, GFR, MDW, ANEU, BMP #### [address] [address] Chloride [Moles/Vol] 103 mmol/L Normal 98-107 [facility] Comment on above: Performed By: #### A DIFF, PBNP, TROPHS, CBC, GFR, MDW, ANEU, BMP #### [address] [address] CO2 [Moles/Vol] 31 mmol/L Normal 23-31 [facility] Comment on above: Performed By: #### A DIFF, PBNP, TROPHS, CBC, GFR, MDW, ANEU, BMP #### [address] [address] Creatinine [Mass/Vol] 0.69 mg/dL Normal 0.55-1.02 [facility] Comment on above: Result Comment: Test ing performed on Siemens Dimension EXL analyzer using a modified kinetic [place] technique. Performed By: #### A DIFF, PBNP, TROPHS, CBC, GFR, MDW, ANEU, BMP #### [address] [address] Electrolyte Balance 6.0 mEq/L Normal 4.0-15.0 [facility] Comment on above: Performed By: #### A DIFF, PBNP, TROPHS, CBC, GFR, MDW, ANEU, BMP #### [address] [address] Globulin 3.4 G/dL Normal [facility] Comment on above: Performed By: #### A DIFF, PBNP, TROPHS, CBC, GFR, MDW, ANEU, BMP #### [address] [address] Glucose [Mass/Vol] 86 mg/dL Normal 80-115 [facility] Comment on above: Performed By: #### A DIFF, PBNP, TROPHS, CBC, GFR, MDW, ANEU, BMP #### [address] [address] Potassium [Moles/Vol] 4.7 mmol/L Normal 3.5-5.1 [facility] Comment on above: Performed By: #### A DIFF, PBNP, TROPHS, CBC, GFR, MDW, ANEU, BMP #### [address] [address] Sodium [Moles/Vol] 140 mmol/L Normal 136-145 [facility] Comment on above: Performed By: #### A DIFF, PBNP, TROPHS, CBC, GFR, MDW, ANEU, BMP #### [address] [place], [place] [address] Total Protein 6.8 G/dL Normal 6.4-8.2 [facility] Comment on above: Performed By: #### A DIFF, PBNP, TROPHS, CBC, GFR, MDW, ANEU, BMP #### [address] [place], [place] [address] Urea nitrogen [Mass/Vol] 7 mg/dL Normal 7-18 [facility] Comment on above: Performed By: #### A DIFF, PBNP, TROPHS, CBC, GFR, MDW, ANEU, BMP #### [address] [place], [place] [address] LABORATORYOrdered By: SYSTEM SYSTEM on 10-23-2024 Albumin BCP dye [Mass/Vol] 3.4 G/dL Normal 3.4 - 4.8 G/dL AO ADM SS Albumin/Globulin [Mass ratio] 1.0 {ratio} Low 1.1 - 2.5 ratio AO ADM SS ALP [Catalytic activity/Vol] 99 U/L Normal 40 - 135 U/L AO ADM SS ALT With P-5'-P [Catalytic activity/Vol] 19 U/L Normal 14 - 59 U/L AO ADM SS AST With P-5'-P [Catalytic activity/Vol] 17 U/L Normal 10 - 40 U/L AO ADM SS Basophils (Bld) [#/Vol] 0.1 103/mcL Normal 0.0 - 0.2 10^3/mcL AO Workflow SS Basophils/100 WBC (Bld) 1.7 % Normal 0.0 - 2.5 % AO Workflow SS Bilirubin [Mass/Vol] 0.4 mg/dL Normal 0.2 - 1 .0 mg/dL AO ADM SS Comment on above: Interpretive Data: U se of this assay is not recommended for patients undergoing treatment with eltrombopag due to the potential for falsely elevated results. Calcium [Mass/Vol] 9.2 mg/dL Normal 8.4 - 10. 2 mg/dL AO ADM SS Chloride [Moles/Vol] 103 mmol/L Normal 98 - 10 7 mmol/L AO ADM SS CO2 [Moles/Vol] 31 mmol/L Normal 23 - 31 mmol/L AO ADM SS Creatinine [Mass/Vol] 0.69 mg/dL Normal 0.55 - 1.02 mg/dL AO ADM SS Comment on above: Interpretive Data: T esting performed on Siemens Dimension EXL analyzer using a modified kinetic [place] technique. Electrolyte Balance 6.0 mEq/L Normal 4.0 - 15 .0 mEq/L AO ADM SS Eosinophil, Absolute 0.1 103/mcL Normal 0.0 - 0 .7 10^3/mcL AO Workflow SS Eosinophils/100 WBC (Bld) 2.2 % Normal 0.0 - 7.0 % AO Workflow SS Erythrocyte distribution width (RBC) [Ratio] 14.8 % Normal 11.5 - 15.5 % AO Workflow SS GFR/1.73 sq M.predicted among blacks MDRD (S/P/Bld) [Vol rate/Area] 102 ml/min/1.73sqm Invalid Interpretation Code AO Chemistry S Comment on above: Interpretive Data: GFR Population mean for , Non- Americans Ages 20-29 = 116 mL/min/1.73 sq.m. Ages 30-39 = 107 mL/min/1.73 sq.m. Ages 40-49 = 99 mL/min/1.73 sq.m. Ages 50-59 = 93 mL/min/1.73 sq.m. Ages 60-69 = 85 mL/min/1.73 sq.m. Ages 70+ = 75 mL/min/1.73 sq.m. Chronic Kidney Disease: Less than 60 mL/min/1.73 square meters End Stage Renal Disease: Less than 15 mL/min/1.73 square meters GFR/1.73 sq M.predicted among non-blacks MDRD (S/P/Bld) [Vol rate/Area] 84 ml/min/1.73sqm Invalid Interpretation Code AO Chemistry S Comment on above: Interpretive Data: GFR Population mean for , Non- Americans Ages 20-29 = 116 mL/min/1.73 sq.m. Ages 30-39 = 107 mL/min/1.73 sq.m. Ages 40-49 = 99 mL/min/1.73 sq.m. Ages 50-59 = 93 mL/min/1.73 sq.m. Ages 60-69 = 85 mL/min/1.73 sq.m. Ages 70+ = 75 mL/min/1.73 sq.m. Chronic Kidney Disease: Less than 60 mL/min/1.73 square meters End Stage Renal Disease: Less than 15 mL/min/1.73 square meters Globulin 3.4 G/dL Invalid Interpretation Code AO ADM SS Glucose [Mass/Vol] 86 mg/dL Normal 80 - 115 mg/dL AO ADM SS Glucose [Mass/Vol] 117 mg/dL Invalid Interpretation Code AO Chemistry S Comment on above: Interpretive Data: E stimated average glucose (eAG) is a calculated value from Hemoglobin A1C and is licensing representative of the average blood glucose level in the last 2-3 month period. Normal range: less than 114 mg/dL HbA1c (Bld) [Mass fraction] 5.7 % Normal 4.3 - 6.4 % AO ADM SS Hematocrit (Bld) [Volume fraction] 44.0 % Normal 34.0 - 46.0 % AO Workflow SS Hemoglobin (Bld) [Mass/Vol] 14.5 G/dL Normal 12.0 - 16.0 G/dL AO Workflow SS Lymphocytes (Bld) [#/Vol] 2.0 103/mcL Normal 0.9 - 4.3 10^3/mcL AO Workflow SS Lymphocytes/100 WBC (Bld) 31.1 % Normal 20.0 - 40.0 % AO Workflow SS MCH (RBC) [Entitic mass] 31.5 pg Normal 27.0 - 33.0 pg AO Workflow SS MCHC 32.9 G/dL Normal 32.0 - 36.0 G/dL AO Workflow SS MCV (RBC) [Entitic vol] 95.6 fL Normal 80.0 - 99.0 fL AO Workflow SS Monocytes (Bld) [#/Vol] 0.8 103/mcL Normal 0.1 - 1.4 10^3/mcL AO Workflow SS Monocytes/100 WBC (Bld) 12.1 % Normal 2.0 - 13.0 % AO Workflow SS Neutrophils (Bld) [#/Vol] 3.4 103/mcL Normal 2.3 - 8.1 10^3/mcL AO Workflow SS Neutrophils/100 WBC (Bld) 52.9 % Normal 50.0 - 75.0 % AO Workflow SS Platelet mean volume (Bld) [Entitic vol] 8.8 fL Normal 6.6 - 10.5 fL AO Workflow SS Platelets (Bld) [#/Vol] 365 103/mcL Normal 150 - 450 10^3/mcL AO Workflow SS Potassium [Moles/Vol] 4.7 mmol/L Normal 3.5 - 5.1 mmol/L AO ADM SS Protein [Mass/Vol] 6.8 G/dL Normal 6.4 - 8.2 G/dL AO ADM SS RBC (Bld) [#/Vol] 4.60 106/mcL Normal 4.10 - 5.3 0 10^6/mcL AO Workflow SS Sodium [Moles/Vol] 140 mmol/L Normal 136 - 145 mmol/L AO ADM SS TSH Qn 2.34 m[IU]/L Normal 0.36 - 3.74 mcIU/mL AO ADM SS Urea nitrogen [Mass/Vol] 7 mg/dL Normal 7 - 18 mg/dL AO ADM SS Urea nitrogen/Creatinine [Mass ratio] 10 ratio Normal 7 - 27 ratio AO ADM SS WBC (Bld) [#/Vol] 6.5 103/mcL Normal 4.5 - 10.8 10^3/mcL AO Workflow SS LABORATORYOrdered By: Antonio Huggins on 10-23-2024 Cholesterol [Mass/Vol] 244 mg/dL High 0 - 2 00 mg/dL AO ADM SS Comment on above: Interpretive Data: C holesterol Reference Interval: Less than 200 Desirable 200-239 Borderline high risk 240 and above High risk Cholesterol in HDL [Mass/Vol] 69 mg/dL High 40 - 60 mg/dL AO ADM SS Cholesterol in LDL [Mass/Vol] 148 mg/dL High 0 - 130 mg/dL AO ADM SS Triglyceride [Mass/Vol] 135 mg/dL Normal 0 - 150 mg/dL AO ADM SS Comment on above: Interpretive Data: T riglyceride Reference Interval: Less than 150 Normal 150-199 Borderline high risk 200-499 High risk 500 or higher Very high risk LIPIDon 10-23-2024 Cholesterol [Mass/Vol] 244 mg/dL High 0-200 [facility] Comment on above: Result Comment: Chol esterol Reference Interval: Less than 200 Desirable 200-239 Borderline high risk 240 and above High risk Performed By: #### A DIFF, PBNP, TROPHS, CBC, GFR, MDW, ANEU, BMP #### [address] [place], [place] [address] Cholesterol in HDL [Mass/Vol] 69 mg/dL High 40-60 [facility] Comment on above: Performed By: #### A DIFF, PBNP, TROPHS, CBC, GFR, MDW, ANEU, BMP #### [address] [place], [place] [address] Cholesterol in LDL [Mass/Vol] 148 mg/dL High 0-130 [facility] Comment on above: Performed By: #### A DIFF, PBNP, TROPHS, CBC, GFR, MDW, ANEU, BMP #### [address] [place], [place] [address] Triglyceride [Mass/Vol] 135 mg/dL Normal 0-150 [facility] Comment on above: Result Comment: Trig lyceride Reference Interval: Less than 150 Normal 150-199 Borderline high risk 200-499 High risk 500 or higher Very high risk Performed By: #### A DIFF, PBNP, TROPHS, CBC, GFR, MDW, ANEU, BMP #### [address] [address] TSHon 10-23-2024 TSH Qn 2.34 m[IU]/L Normal 0.36-3.74 [facility] Comment on above: Performed By: #### A DIFF, PBNP, TROPHS, CBC, GFR, MDW, ANEU, BMP #### [address] [address] CNCOon 10-02-2023 CNCO Letter Text Normal [facility] Frank 09-25-2023 CNPN Telephone (INTMWS) STEVEN KOENIG ([id number]) 1955 F Date Time Provider Department 09/25/23 ULISES HERMOSILLO INTMWS During your visit today, we recorded the following information about you: Nena Dozier RN 09/25/2023 4:02 PM Signed Patient calls to report that she is currently in [place] and will be there for the next several months. Patient is going to run out of medication and is unable to transfer prescriptions. Patient asking if provider would send prescriptions to [facility] pharmacy in [place]. Pended 90 day request for review. AAMIR Coffman Victor H, MD 09/25/2023 5:17 PM Signed All appointments here are cancelled. If she has relocated, update demographics. I recommend she look for primary care there for continuation of care. 3 month supply of medications sent. Patient's request for medication is as follows Requested Prescriptions Signed Prescriptions Disp Refills albuterol HFA (VENTOLIN HFA) 90 mcg/actuation inhaler 80 g 1 Sig: Inhale 2 Puffs as instructed every 6 hours as needed for wheezing/shortness of breath. Authorizing Provider: ULISES HERMOSILLO amLODIPine (NORVASC) 10 mg tablet 90 tablet 0 Sig: Take 1 tablet by mouth once daily. Authorizing Provider: ULISES HERMOSILLO rosuvastatin (CRESTOR) 5 mg tablet 90 tablet 0 Sig: Take 1 tablet by mouth daily at bedtime. Authorizing Provider: ULISES HERMOSILLO lisinopril (ZESTRIL) 40 mg tablet 90 tablet 0 Sig: Take 1 tablet by mouth once daily. Authorizing Provider: ULISES HERMOSILLO omeprazole (PRILOSEC) 40 mg capsule 90 capsule 0 Sig: Take 1 capsule by mouth once daily. Authorizing Provider: ULISES HERMOSILLO traZODone (DESYREL) 100 mg tablet 180 tablet 0 Sig: Take 2 tablets by mouth daily at bedtime. Authorizing Provider: ULISES HERMOSILLO carvedilol (COREG) 6.25 mg tablet 180 tablet 0 Sig: Take 1 tablet by mouth two times a day. Authorizing Provider: ULISES HERMOSILLO isosorbide mononitrate ER (IMDUR) 30 mg 24 hr tablet 90 tablet 0 Sig: Take 1 tablet by mouth once daily. Authorizing Provider: ULISES HERMOSILLO Order entered - please phone pharmacy and notify patient. MD Jesus Jameson Sherill A LPN 09/26/2023 8:08 AM Signed Pt notified of pcp's message. Pt states she will be coming back to [place]. Is just in [place] for a few months to help out her son. 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] Order(s):albuterol HFA (VENTOLIN HFA) 90 mcg/actuation inhalerInhale 2 Puffs as instructed every 6 hours as needed for wheezing/shortness of breath.Disp: 80 gRfl: 1 amLODIPine (NORVASC) 10 mg tabletTake 1 tablet by mouth once daily.Disp: 90 tabletRfl: 0 rosuvastatin (CRESTOR) 5 mg tabletTake 1 tablet by mouth daily at bedtime.Disp: 90 tabletRfl: 0 lisinopril (ZESTRIL) 40 mg tabletTake 1 tablet by mouth once daily.Disp: 90 tabletRfl: 0 omeprazole (PRILOSEC) 40 mg capsuleTake 1 capsule by mouth once daily.Disp: 90 capsuleRfl: 0 traZODone (DESYREL) 100 mg tabletTake 2 tablets by mouth daily at bedtime.Disp: 180 tabletRfl: 0 carvedilol (COREG) 6.25 mg tabletTake 1 tablet by mouth two times a day.Disp: 180 tabletRfl: 0 isosorbide mononitrate ER (IMDUR) 30 mg 24 hr tabletTake 1 tablet by mouth once daily.Disp: 90 tabletRfl: 0 Prescriptions as of 09/26/2023 - albuterol HFA (VENTOLIN HFA) 90 mcg/actuation inhaler Inhale 2 Puffs as instructed every 6 hours as needed for wheezing/shortness of breath. - amLODIPine (NORVASC) 10 mg tablet Take 1 tablet by mouth once daily. - rosuvastatin (CRESTOR) 5 mg tablet Take 1 tablet by mouth daily at bedtime. - lisinopril (ZESTRIL) 40 mg tablet Take 1 tablet by mouth once daily. - omeprazole (PRILOSEC) 40 mg capsule Take 1 capsule by mouth once daily. - traZODone (DESYREL) 100 mg tablet Take 2 tablets by mouth daily at bedtime. - carvedilol (COREG) 6.25 mg tablet Take 1 tablet by mouth two times a day. - isosorbide mononitrate ER (IMDUR) 30 mg 24 hr tablet Take 1 tablet by mouth once daily. - aspirin 81 mg chewable tablet Take 1 tablet by mouth once daily. - egvmyfmkfut-qvxsrybos-l ilanter (TRELEGY ELLIPTA) 200-62.5-25 mcg inhalation powder Inhale 1 Puff as instructed once daily. Problem List As Of Date 09/25/2023 Noted Resolved Essential hypertension [I10] 12/14/2015 Recurrent major depress (more content not included)... Normal [facility] CNCOon 09-06-2023 CNCO Letter Text Normal [facility] CNPNon 06-13-2023 LINDAN Telephone (TREV) STEVEN KOENIG ([id number]) 1955 F Date Time Provider Department 06/13/23 [facility] PROVIDER TREV During your visit today, we recorded the following information about you: Elizabeth Ly Ma 06/13/2023 4:26 PM Signed Patient contacted via telephone regarding upcoming NEW patient appointment with Dr. Harris on 06/14/23. Patient informed of the following: This is the [facility] calling regarding your upcoming appointment with Dr. Harris. To avoid a delay in your care, please bring any radiology images that have been done outside of the [facility] on a disk to be viewed at your appointment. Dr. Harris is an Interventional Pain Management provider specializing in the Spine. Please be aware that this appointment is a consult only and narcotics will NOT be prescribed. He treats with physical therapy, injections of the spine or joints, and non-narcotic medications. Dr. Harris will not take over and manage any medications that are already being prescribed by another provider. Dr. Harris does not fill disability or any other insurance-related forms/documentation" Patient states she will be leaving for out of state in 2 days. I informed her that Dr. Harris is booking out until early July for the injection. Patient requests to cancel this appointment Appointment canceled. Allergies As of Date: 06/13/2023 (No Known Allergies) Date Reviewed: 05/09/2023 Reviewed by: Mely Griffin PA-C - Fully Assessed Reason for Visit: Future Appointment [256] Prescriptions as of 06/13/2023 - aspirin 81 mg chewable tablet Take 1 tablet by mouth once daily. - lisinopril (ZESTRIL) 40 mg tablet Take 1 tablet by mouth once daily. - traZODone (DESYREL) 100 mg tablet Take 2 tablets by mouth daily at bedtime. - amLODIPine (NORVASC) 10 mg tablet TAKE 1 TABLET BY MOUTH EVERY DAY - rosuvastatin (CRESTOR) 5 mg tablet Take 1 tablet by mouth daily at bedtime. - isosorbide mononitrate ER (IMDUR) 30 mg 24 hr tablet TAKE 1 TABLET BY MOUTH EVERY DAY - yyechjphokp-atfarayom-f ilanter (TRELEGY ELLIPTA) 200-62.5-25 mcg inhalation powder Inhale 1 Puff as instructed once daily. - venlafaxine ER (EFFEXOR XR) 150 mg 24 hr capsule Take 1 capsule by mouth once daily. Take with 75 mg capsule to =225 mg - carvedilol (COREG) 6.25 mg tablet Take 1 tablet by mouth twice daily. - venlafaxine ER (EFFEXOR XR) 75 mg 24 hr capsule Take 1 capsule by mouth once daily. Take with 150 mg capsule to =150 mg - albuterol HFA (VENTOLIN HFA) 90 mcg/actuation inhaler Inhale 2 Puffs as instructed every 6 hours as needed for wheezing/shortness of breath. - omeprazole (PRILOSEC) 40 mg capsule Take 1 capsule by mouth once daily. Problem List As Of Date 06/13/2023 Noted Resolved Essential hypertension [I10] 12/14/2015 Recurrent major depression in partial remission*12/14/2015 Anxiety [F41.9] 12/14/2015 01/06/2021 Bipolar affective disorder, currently active (H*01/18/2016 History of alcohol abuse [F10.11] 01/18/2016 Chronic bronchitis (HCC) [J42] 07/26/2016 Hyperkalemia [E87.5] 07/27/2016 11/27/2018 Polycythemia [D75.1] 07/27/2016 11/27/2018 Spinal stenosis, lumbar region without neurogen*12/01/2018 Radiculopathy, lumbar region [M54.16] 12/01/2018 Smoker [F17.200] 03/13/2019 GERD (gastroesophageal reflux disease) [K21.9] 03/13/2019 Primary osteoarthritis of right hip [M16.11] 03/13/2019 10/06/2019 History of total right hip arthroplasty [Z96.64*03/25/2019 07/07/2020 Seasonal allergies [J30.2] 05/04/2019 Preop cardiovascular exam [Z01.810] 09/28/2019 10/06/2019 Precordial pain, short lived, 3-5 minutes, none*09/28/2019 07/07/2020 PAD (peripheral artery disease) ([facility]) [I73.9] 09/28/2019 Anxiety and depression [F41.9, F32.A] 10/06/2019 Hypomagnesemia [E83.42] 10/22/2019 10/23/2019 Asthma [J45.909] 07/07/2020 07/07/2020 Prediabetes [R73.03] 02/04/2021 Chest pain [R07.9] 05/08/2021 Other chest pain [R07.89] 05/08/2021 Stenosis of carotid artery [I65.29] 05/08/2021 Mixed hyperlipidemia [E78.2] 05/08/2021 Abnormal stress test [R94.39] 08/26/2021 Dyspnea on exertion [R06.09] 08/26/2021 Coronary artery disease involving [place]*09/27/2021 Lung nodule [R91.1] 08/31/2022 History of hemoptysis [Z87.898] 11/20/2022 Encounter Status:Closed by ELIZABETH LY MA on 06/13/23 [facility] 06-10-2023 CNPN Telephone (INTMWS) STEVEN KOENIG ([id number]) 1955 F Date Time Provider Department 06/10/23 ULISES HERMOSILLO INTMWS During your visit today, we recorded the following information about you: Cailin Valadez 06/10/2023 10:03 AM Signed Patient called to refill her atorvastatin. It is noted as discontinued in her chart. She is confused about what she is supposed to be taking. She is leaving for vacation in 2 days and wants to make sure what meds she is to be taking. Please call her at [phone]. Ulises Hermosillo MD 06/13/2023 1:59 AM Signed She is on Crestor 5 mg daily which replaced Lipitor. Irena Cantor LPN 06/13/2023 9:31 AM Signed Patient notified, verbalized understanding. Irena Cantor LPN Allergies As of Date: 06/10/2023 (No Known Allergies) Date Reviewed: 05/09/2023 Reviewed by: Mely Griffin PA-C - Fully Assessed Reason for Visit: Medication clarification [Other] Prescriptions as of 06/13/2023 - aspirin 81 mg chewable tablet Take 1 tablet by mouth once daily. - lisinopril (ZESTRIL) 40 mg tablet Take 1 tablet by mouth once daily. - traZODone (DESYREL) 100 mg tablet Take 2 tablets by mouth daily at bedtime. - amLODIPine (NORVASC) 10 mg tablet TAKE 1 TABLET BY MOUTH EVERY DAY - rosuvastatin (CRESTOR) 5 mg tablet Take 1 tablet by mouth daily at bedtime. - isosorbide mononitrate ER (IMDUR) 30 mg 24 hr tablet TAKE 1 TABLET BY MOUTH EVERY DAY - yaigsrmkvst-wfhvdsuwj-h ilanter (TRELEGY ELLIPTA) 200-62.5-25 mcg inhalation powder Inhale 1 Puff as instructed once daily. - venlafaxine ER (EFFEXOR XR) 150 mg 24 hr capsule Take 1 capsule by mouth once daily. Take with 75 mg capsule to =225 mg - carvedilol (COREG) 6.25 mg tablet Take 1 tablet by mouth twice daily. - venlafaxine ER (EFFEXOR XR) 75 mg 24 hr capsule Take 1 capsule by mouth once daily. Take with 150 mg capsule to =150 mg - albuterol HFA (VENTOLIN HFA) 90 mcg/actuation inhaler Inhale 2 Puffs as instructed every 6 hours as needed for wheezing/shortness of breath. - omeprazole (PRILOSEC) 40 mg capsule Take 1 capsule by mouth once daily. Problem List As Of Date 06/10/2023 Noted Resolved Essential hypertension [I10] 12/14/2015 Recurrent major depression in partial remission*12/14/2015 Anxiety [F41.9] 12/14/2015 01/06/2021 Bipolar affective disorder, currently active (H*01/18/2016 History of alcohol abuse [F10.11] 01/18/2016 Chronic bronchitis (HCC) [J42] 07/26/2016 Hyperkalemia [E87.5] 07/27/2016 11/27/2018 Polycythemia [D75.1] 07/27/2016 11/27/2018 Spinal stenosis, lumbar region without neurogen*12/01/2018 Radiculopathy, lumbar region [M54.16] 12/01/2018 Smoker [F17.200] 03/13/2019 GERD (gastroesophageal reflux disease) [K21.9] 03/13/2019 Primary osteoarthritis of right hip [M16.11] 03/13/2019 10/06/2019 History of total right hip arthroplasty [Z96.64*03/25/2019 07/07/2020 Seasonal allergies [J30.2] 05/04/2019 Preop cardiovascular exam [Z01.810] 09/28/2019 10/06/2019 Precordial pain, short lived, 3-5 minutes, none*09/28/2019 07/07/2020 PAD (peripheral artery disease) (HCC) [I73.9] 09/28/2019 Anxiety and depression [F41.9, F32.A] 10/06/2019 Hypomagnesemia [E83.42] 10/22/2019 10/23/2019 Asthma [J45.909] 07/07/2020 07/07/2020 Prediabetes [R73.03] 02/04/2021 Chest pain [R07.9] 05/08/2021 Other chest pain [R07.89] 05/08/2021 Stenosis of carotid artery [I65.29] 05/08/2021 Mixed hyperlipidemia [E78.2] 05/08/2021 Abnormal stress test [R94.39] 08/26/2021 Dyspnea on exertion [R06.09] 08/26/2021 Coronary artery disease involving [place]*09/27/2021 Lung nodule [R91.1] 08/31/2022 History of hemoptysis [Z87.898] 11/20/2022 Encounter Status:Closed by IRENA CANTOR LPN on 06/13/23 [facility] ([id number]) 1955 F Date Time Provider Department 05/10/23 ULISES HERMOSILLO INTWS During your visit today, we recorded the following information about you: Christina Franco RN 05/10/2023 1:00 PM Signed Patient calling and asking about lab results as well as x ray results to back. Please review and advise, AAMIR Diego APRN.ANESTHESIOLOGY FACULTY 05/10/2023 1:12 PM Signed Lipids are not well controlled. Recommend treatment with a statin. It looks like she did not tolerate atorvastatin in the past, recommend Crestor which has less incidence of side effects. Potassium slightly elevated, needs rechecked in a couple weeks. The rest of her labs were okay. X-ray showing arthritis in the spine but otherwise okay. Recommend PT, could also consider referral to pain management. Oly Smith APRN.LINDA Blackman Ma 05/10/2023 1:58 PM Signed Left message to call office. 05/10/2023 1:58 PM Hyacinth Suero LPN 05/10/2023 3:02 PM Signed Spoke with pt gave information provided. P[t voices understanding. Will try cholesterol med uses [facility] in [place]. Please assist in scheduling with physical therapy and pain management. Allergies As of Date: 05/10/2023 (No Known Allergies) Date Reviewed: 05/09/2023 Reviewed by: Mely Griffin PA-C - Fully Assessed Reason for Visit: Results [95] Primary Visit Diagnosis:Radiculopathy , lumbar region [M54.16] Other Visit Diagnosis:Chronic midline low back pain with sciatica, sciatica laterality unspecified [M54.40, G89.29] Order(s):CONSULT TO PAIN MGT [512742] Order #: [id number]: 1 FUTURE rosuvastatin (CRESTOR) 5 mg tabletTake 1 tablet by mouth daily at bedtime.Disp: 30 tabletRfl: 2 CONSULT TO PHYSICAL THERAPY [9032] Order #: [id number]: 1 FUTURE Prescriptions as of 05/13/2023 - rosuvastatin (CRESTOR) 5 mg tablet Take 1 tablet by mouth daily at bedtime. - isosorbide mononitrate ER (IMDUR) 30 mg 24 hr tablet TAKE 1 TABLET BY MOUTH EVERY DAY - traZODone (DESYREL) 100 mg tablet Take 2 tablets by mouth daily at bedtime. - ikqhhqueldj-qmohglqtu-f ilanter (TRELEGY ELLIPTA) 200-62.5-25 mcg inhalation powder Inhale 1 Puff as instructed once daily. - venlafaxine ER (EFFEXOR XR) 150 mg 24 hr capsule Take 1 capsule by mouth once daily. Take with 75 mg capsule to =225 mg - carvedilol (COREG) 6.25 mg tablet Take 1 tablet by mouth twice daily. - lisinopril (ZESTRIL, PRINIVIL) 40 mg tablet Take 1 tablet by mouth once daily. - venlafaxine ER (EFFEXOR XR) 75 mg 24 hr capsule Take 1 capsule by mouth once daily. Take with 150 mg capsule to =150 mg - albuterol HFA (VENTOLIN HFA) 90 mcg/actuation inhaler Inhale 2 Puffs as instructed every 6 hours as needed for wheezing/shortness of breath. - amLODIPine (NORVASC) 10 mg tablet TAKE 1 TABLET BY MOUTH EVERY DAY - omeprazole (PRILOSEC) 40 mg capsule Take 1 capsule by mouth once daily. - aspirin 81 mg chewable tablet Take 1 tablet by mouth once daily. Problem List As Of Date 05/10/2023 Noted Resolved Essential hypertension [I10] 12/14/2015 Recurrent major depression in partial remission*12/14/2015 Anxiety [F41.9] 12/14/2015 01/06/2021 Bipolar affective disorder, currently active (H*01/18/2016 History of alcohol abuse [F10.11] 01/18/2016 Chronic bronchitis (HCC) [J42] 07/26/2016 Hyperkalemia [E87.5] 07/27/2016 11/27/2018 Polycythemia [D75.1] 07/27/2016 11/27/2018 Spinal stenosis, lumbar region without neurogen*12/01/2018 Radiculopathy, lumbar region [M54.16] 12/01/2018 Smoker [F17.200] 03/13/2019 GERD (gastroesophageal reflux disease) [K21.9] 03/13/2019 Primary osteoarthritis of right hip [M16.11] 03/13/2019 10/06/2019 History of total right hip arthroplasty [Z96.64*03/25/2019 07/07/2020 Seasonal allergies [J30.2] 05/04/2019 Preop cardiovascular exam [Z01.810] 09/28/2019 10/06/2019 Precordial pain, short lived, 3-5 minutes, none*09/28/2019 07/07/2020 PAD (peripheral artery disease) (HCC) [I73.9] 09/28/2019 Anxiety and depression [F41.9, F32.A] 10/06/2019 Hypomagnesemia [E83.42] 10/22/2019 10/23/2019 Asthma [J45.909] 07/07/2020 07/07/2020 Prediabetes [R73.03] 02/04/2021 Chest pain [R07.9] 05/08/2021 Other chest pain [R07.89] 05/08/2021 Stenosis of carotid artery [I65.29] 05/08/2021 Mixed hyperlipidemia [E78.2] 05/08/2021 Abnormal stress test [R94.39] 08/26/2021 Dyspnea on exertion [R06.09] 08/26/2021 Coronary artery disease involving [place]*09/27/2021 Lung nodule [R91.1] 08/31/2022 History of hemoptysis [Z87.898] 11/20/2022 Prescriptions ordered this encounter Disp Refills Start End ROSUVASTATIN 5 MG TABLET 30 t* 2 05/13/2023 Route: ORAL Sig: Take 1 tablet by mouth daily at bedtime. Encounter Status:Closed by CHRISTINA FRANCO on 05/13/23 [facility] XR Lumbar spine 3 Viewson IMPRESSION: Lumbar spine degenerative changes with L4-5 disc space narrowing. 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: SRAVANI Transcribe Date/Time: May 10 2023 11:59A Dictated by : KARMEN MOSLEY MD This examination was interpreted and the report reviewed and electronically signed by: KARMEN MOSLEY MD on May 10 2023 12:02PM [facility] DIVISION OF RADIOLOGY * * *Final Report* * * DATE OF EXAM: May 08 2023 1:01PM WOX [id number] - XR LUMBAR 3V AP/LAT/L5-S1 / PROCEDURE REASON: multiple diagnoses * * * * Physician Interpretation * * * * EXAM TITLE: XR LUMBAR 3V AP/LAT/L5-S1 EXAM DATE/TIME: 05/08/2023 1:01 PM COMPARISON: None. CLINICAL INDICATION/HISTORY: Low back pain. TECHNIQUE: AP, lateral and cone down lateral views of the lumbar spine are presented. FINDINGS: There are five pcm-cgh-cyqpgih lumbar vertebrae. No fracture or subluxations are noted. Right-sided curvature/dextroscolios is is noted. There is L4-5 disc space narrowing. There is mild to moderate osteophyte formation. Others: There are vascular calcifications. A right-sided iliac vascular stent is noted. DIVISION OF RADIOLOGY Provider, Ha Duran - 05/10/2023 * * *Final Report* * * DATE OF EXAM: May 08 2023 1:01PM WOX [id number] - XR LUMBAR 3V AP/LAT/L5-S1 / PROCEDURE REASON: multiple diagnoses * * * * Physician Interpretation * * * * EXAM TITLE: XR LUMBAR 3V AP/LAT/L5-S1 EXAM DATE/TIME: 05/08/2023 1:01 PM COMPARISON: None. CLINICAL INDICATION/HISTORY: Low back pain. TECHNIQUE: AP, lateral and cone down lateral views of the lumbar spine are presented. FINDINGS: There are five ipl-zon-jczmuoi lumbar vertebrae. No fracture or subluxations are noted. Right-sided curvature/dextroscolios is is noted. There is L4-5 disc space narrowing. There is mild to moderate osteophyte formation. Others: There are vascular calcifications. A right-sided iliac vascular stent is noted. IMPRESSION IMPRESSION: Lumbar spine degenerative changes with L4-5 disc space narrowing. 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: SRAVANI Transcribe Date/Time: May 10 2023 11:59A Dictated by : KARMEN MOSLEY MD This examination was interpreted and the report reviewed and electronically signed by: KARMEN MOSLEY MD on May 10 2023 12:02PM [facility] XR Lumbar spine 3 ViewsOrder ed By: Ccf Provider on 05-10-2023 [facility] CNOVon 05-09-2023 CNOV Office Visit (PULMWS ) STEVEN KOENIG ([id number]) 1955 F Date Time Provider Department 05/09/23 2:00 PM MELY GRIFFIN PULMAU During your visit today, we recorded the following information about you: Pulse Respiration Blood pressure Weight 83/minute 18/minute 140/90 57.2 kg Height 1.6 m Mely Griffin PA-C 05/09/2023 2:05 PM Signed Patient: Steven Koenig PCP: Ulises Hermosillo MD CC: COPD HPI: Steven Koenig 67 year old female current heavy smoker, over 100 pack years with PMH significant for bipolar affective disorder, h/o alcohol abuse, GERD, PAD, HLD, CAD s/p stent, severe COPD (FEV1 0.83 L 36%), and oxygen dependence. Most recent office visit 11/26/[address] Asher at which time patient had episodes of hemoptysis most likely related to acute exacerbation with COPD with bronchitis. CXR unremarkable. Current therapy consists of Trelegy Ellipta and as needed Albuterol. Today, patient states that she does not think Trelegy is very helpful. Daily cough with clear sputum. Describes as thick and difficult to expel. No hemoptysis. Frequent wheezing. Exertional dyspnea with minimal effort. Gets SOB with talking, climbing stairs, carrying groceries. No lower extremity edema. No fever, chills or nights sweats. Reported unintentional weight loss 7-10 pounds over the last couple years. Currently smoking 1 ppd. Has never quit smoking. States she has tried Chantix and Nicotine patches without success. PAST MEDICAL HISTORY Diagnosis Date Acute pancreatitis 2010 Anisha Cruz Alcohol use disorder 01/18/2016 [facility] Anxiety 12/14/2015 Bipolar affective disorder, currently active ([facility]) 01/18/2016 [facility] Chronic bronchitis ([facility]) 07/26/2016 Closed skull fracture ([facility]) 1994 [facility], [facility] Coronary artery disease DDD (degenerative disc disease), cervical Endometriosis 2007 Essential hypertension 12/14/2015 GERD (gastroesophageal reflux disease) 03/13/2019 History of colon polyps History of gastric ulcer 12/14/2015 HLD (hyperlipidemia) Injury of left facial nerve 1994 PAD (peripheral artery disease) ([facility]) 09/28/2019 Recurrent major depression in partial remission ([facility]) 12/14/2015 S/P drug eluting coronary stent placement 08/25/2021 LAD and Dg2 Spinal stenosis Allergies: No Known Allergies isosorbide mononitrate ER (IMDUR) 30 mg 24 hr tablet TAKE 1 TABLET BY MOUTH EVERY DAY traZODone (DESYREL) 100 mg tablet Take 2 tablets by mouth daily at bedtime. xglgbgbscwc-hlrqigfsm-e ilanter (TRELEGY ELLIPTA) 200-62.5-25 mcg inhalation powder Inhale 1 Puff as instructed once daily. venlafaxine ER (EFFEXOR XR) 150 mg 24 hr capsule Take 1 capsule by mouth once daily. Take with 75 mg capsule to =225 mg carvedilol (COREG) 6.25 mg tablet Take 1 tablet by mouth twice daily. lisinopril (ZESTRIL, PRINIVIL) 40 mg tablet Take 1 tablet by mouth once daily. venlafaxine ER (EFFEXOR XR) 75 mg 24 hr capsule Take 1 capsule by mouth once daily. Take with 150 mg capsule to =150 mg albuterol HFA (VENTOLIN HFA) 90 mcg/actuation inhaler Inhale 2 Puffs as instructed every 6 hours as needed for wheezing/shortness of breath. amLODIPine (NORVASC) 10 mg tablet TAKE 1 TABLET BY MOUTH EVERY DAY omeprazole (PRILOSEC) 40 mg capsule Take 1 capsule by mouth once daily. aspirin 81 mg chewable tablet Take 1 [...] Substance Use Topics Alcohol use: Not Currently Alcohol/week: 60.0 standard drinks Types: 60 Standard drinks or equivalent per week Comment: Quit drinking in 2020 Drug use: No Family History Problem Relation Age of Onset Cancer Mother [...] 1979 Hysterectomy, MAURA TOTAL FACIAL NERVE DECOMPRESSION (more content not included)... Normal [facility] CBC W Auto Differential pane l (Bld)on 05-08-2023 Basophils (Bld) [#/Vol] 0.08 10*3/uL <0.11 k/uL [facility] Basophils/100 WBC (Bld) 1.0 % [facility] Differential cell count method Nom (Bld) Auto [facility] Eosinophils (Bld) [#/Vol] 0.19 10*3/uL <0.46 k/uL [facility] Eosinophils/100 WBC (Bld) 2.3 % [facility] Erythrocyte distribution width (RBC) [Ratio] 15.4 % High 11.5 - 15.0 % [facility] Hematocrit (Bld) [Volume fraction] 46.9 % High 36.0 - 46.0 % [facility] Hemoglobin (Bld) [Mass/Vol] 14.6 g/dL 11.5 - 15.5 g/dL [facility] Immature granulocytes (Bld) [#/Vol] <0.10 k/uL [facility] Immature granulocytes/100 WBC (Bld) 0.2 % [facility] Lymphocytes (Bld) [#/Vol] 2.23 10*3/uL 1.00 - 4.00 k/uL [facility] Lymphocytes/100 WBC (Bld) 27.3 % [facility] MCH (RBC) [Entitic mass] 30.7 pg 26.0 - 34.0 pg [facility] MCHC (RBC) [Mass/Vol] 31.1 g/dL 30.5 - 36.0 g/dL [facility] MCV (RBC) [Entitic vol] 98.5 fL 80.0 - 100.0 fL [facility] Monocytes (Bld) [#/Vol] 0.71 10*3/uL <0.87 k/uL [facility] Monocytes/100 WBC (Bld) 8.7 % [facility] Neutrophils (Bld) [#/Vol] 4.94 10*3/uL 1.45 - 7.50 k/uL [facility] Neutrophils/100 WBC (Bld) 60.5 % [facility] Nucleated RBC (Bld) [#/Vol] <0.01 k/uL [facility] Nucleated RBC/100 WBC (Bld) [Ratio] 0.0 /100 WBC [facility] Platelet mean volume (Bld) [Entitic vol] 10.5 fL 9.0 - 12.7 fL [facility] Platelets (Bld) [#/Vol] 408 10*3/uL High 150 - 400 k/uL [facility] RBC (Bld) [#/Vol] 4.76 10*6/uL 3.90 - 5.2 0 m/uL [facility] WBC (Bld) [#/Vol] 8.17 10*3/uL 3.70 - 11.00 k/uL [facility] Basophils (Bld) [#/Vol] 0.08 10*3/uL Normal <0.11 [facility] Comment on above: Order Comment: Speci men Type: BLOOD SPECIMENOrdering Facility: [facility] Address: [address] [address] Performed By: #### 5 7021-8 ####[facility] LABCLIA [id number] [address] [place] Basophils/100 WBC (Bld) 1.0 % Normal [facility] Comment on above: Order Comment: Speci men Type: BLOOD SPECIMENOrdering Facility: [facility] Address: [address] [place] [address] Performed By: #### 5 7021-8 ####[facility] LABCLIA [id number] [place] [address] [place] Differential cell count method Nom (Bld) Auto Normal [facility] Comment on above: Order Comment: Speci men Type: BLOOD SPECIMENOrdering Facility: [facility] Address: [address] Performed By: #### 5 7021-8 ####[facility] LABCLIA [id number] [address] [place] Eosinophils (Bld) [#/Vol] 0.19 10*3/uL Normal <0.46 [facility] Comment on above: Order Comment: Speci men Type: BLOOD SPECIMENOrdering Facility: [facility] Address: [address] [address] Performed By: #### 5 7021-8 ####[facility] LABCLIA [id number] [place] [address] [place] Eosinophils/100 WBC (Bld) 2.3 % Normal [facility] Comment on above: Order Comment: Speci men Type: BLOOD SPECIMENOrdering Facility: [facility] Address: [address] Performed By: #### 5 7021-8 ####[facility] LABCLIA [id number] [place] [address] [place] Erythrocyte distribution width (RBC) [Ratio] 15.4 % High 11.5-15.0 [facility] Comment on above: Order Comment: Speci men Type: BLOOD SPECIMENOrdering Facility: [facility] Address: [address] Performed By: #### 5 7021-8 ####[facility] LABCLIA [id number] [place] [address] [place] Hematocrit (Bld) [Volume fraction] 46.9 % High 36.0-46.0 [facility] Comment on above: Order Comment: Speci men Type: BLOOD SPECIMENOrdering Facility: [facility] Address: [address] Performed By: #### 5 7021-8 ####[facility] LABCLIA [id number] [place] [address] [place] Hemoglobin (Bld) [Mass/Vol] 14.6 g/dL Normal 11.5-15.5 [facility] Comment on above: Order Comment: Speci men Type: BLOOD SPECIMENOrdering Facility: [facility] Address: [address] [place] [address] Performed By: #### 5 7021-8 ####[facility] LABCLIA [id number] [place] [address] [place] Immature granulocytes (Bld) [#/Vol] 10*3/uL Normal <0.10 [facility] Comment on above: Order Comment: Speci men Type: BLOOD SPECIMENOrdering Facility: [facility] Address: [address] [place] [address] Performed By: #### 5 7021-8 ####[facility] LABCLIA [id number] [place] [address] [place] Immature granulocytes/100 WBC (Bld) 0.2 % Normal [facility] Comment on above: Order Comment: Speci men Type: BLOOD SPECIMENOrdering Facility: [facility] Address: [address] [place], [place] [address] Performed By: #### 5 7021-8 ####[facility] LABCLIA [id number] [place] [address] [place] Lymphocytes (Bld) [#/Vol] 2.23 10*3/uL Normal 1.00-4.00 [facility] Comment on above: Order Comment: Speci men Type: BLOOD SPECIMENOrdering Facility: [facility] Address: [address] [place], [place] [address] Performed By: #### 5 7021-8 ####[facility] LABCLIA [id number] [place] [address] [place] Lymphocytes/100 WBC (Bld) 27.3 % Normal [facility] Comment on above: Order Comment: Speci men Type: BLOOD SPECIMENOrdering Facility: [facility] Address: [address] [address] Performed By: #### 5 7021-8 ####[facility] LABIA [id number] [address] [place] MCH (RBC) [Entitic mass] 30.7 pg Normal 26.0-34.0 [facility] Comment on above: Order Comment: Speci men Type: BLOOD SPECIMENOrdering Facility: [facility] Address: [address] [address] Performed By: #### 5 7021-8 ####[facility] LABIA [id number] [address] [place] MCHC (RBC) [Mass/Vol] 31.1 g/dL Normal 30.5-36.0 [facility] Comment on above: Order Comment: Speci men Type: BLOOD SPECIMENOrdering Facility: [facility] Address: [address] Performed By: #### 5 7021-8 ####[facility] LABIA [id number] [address] [place] MCV (RBC) [Entitic vol] 98.5 fL Normal 80.0-100.0 C [facility] Comment on above: Order Comment: Speci men Type: BLOOD SPECIMENOrdering Facility: [facility] Address: [address] Performed By: #### 5 7021-8 ####[facility] [id number] [place] [address] [place] Monocytes (Bld) [#/Vol] 0.71 10*3/uL Normal <0.87 [facility] Comment on above: Order Comment: Speci men Type: BLOOD SPECIMENOrdering Facility: [facility] Address: [address] [place], [place] [address] Performed By: #### 5 7021-8 ####[facility] LABCLIA [id number] [place] [address] [place] Monocytes/100 WBC (Bld) 8.7 % Normal [facility] Comment on above: Order Comment: Speci men Type: BLOOD SPECIMENOrdering Facility: [facility] Address: [address] Performed By: #### 5 7021-8 ####[facility] LABCLIA [id number] [place] [address] [place] Neutrophils (Bld) [#/Vol] 4.94 10*3/uL Normal 1.45-7.50 [facility] Comment on above: Order Comment: Speci men Type: BLOOD SPECIMENOrdering Facility: [facility] Address: [address] Performed By: #### 5 7021-8 ####[facility] LABCLIA [id number] [place] [address] [place] Neutrophils/100 WBC (Bld) 60.5 % Normal [facility] Comment on above: Order Comment: Speci men Type: BLOOD SPECIMENOrdering Facility: [facility] Address: [address] [place], [place] [address] Performed By: #### 5 7021-8 ####[facility] LABCLIA [id number] [place] [address] [place] Nucleated RBC (Bld) [#/Vol] 10*3/uL Normal <0.01 [facility] Comment on above: Order Comment: Speci men Type: BLOOD SPECIMENOrdering Facility: [facility] Address: [address] [place] [address] Performed By: #### 5 7021-8 ####[facility] LABCLIA [id number] [place] [address] [place] Nucleated RBC/100 WBC (Bld) [Ratio] 0.0 /100 WBC Normal [facility] Comment on above: Order Comment: Speci men Type: BLOOD SPECIMENOrdering Facility: [facility] Address: [address] [place], [place] [address] Performed By: #### 5 7021-8 ####[facility] LABCLIA [id number] [place] [address] [place] Platelet mean volume (Bld) [Entitic vol] 10.5 fL Normal 9.0-12.7 [facility] Comment on above: Order Comment: Speci men Type: BLOOD SPECIMENOrdering Facility: [facility] Address: [address] [place], [place] [address] Performed By: #### 5 7021-8 ####[facility] LABCLIA [id number] [place] [address] [place] Platelets (Bld) [#/Vol] 408 10*3/uL High 150-400 [facility] Comment on above: Order Comment: Speci men Type: BLOOD SPECIMENOrdering Facility: [facility] Address: [address] [place], [place] [address] Performed By: #### 5 7021-8 ####[facility] LABCLIA [id number] [place] [address] [place] RBC (Bld) [#/Vol] 4.76 10*6/uL Normal 3.90-5.20 [facility] Comment on above: Order Comment: Speci men Type: BLOOD SPECIMENOrdering Facility: [facility] Address: [address] [place], [place] [address] Performed By: #### 5 7021-8 ####[facility] LABCLIA [id number] [place] [address] [place] WBC (Bld) [#/Vol] 8.17 10*3/uL Normal 3.70-11.00 [facility] Comment on above: Order Comment: Speci men Type: BLOOD SPECIMENOrdering Facility: [facility] Address: [address] [place] [address] Performed By: #### 5 7021-8 ####[facility] LABCLIA [id number] [id number] [id number] [place] [facility] CNOVon 05-08-2023 CNOV Office Visit (INTMWS ) STEVNE KOENIG ([id number]) 1955 F Date Time Provider Department 05/08/23 12:20 PM OLY SMITH INTMWS During your visit today, we recorded the following information about you: Pulse Respiration Blood pressure Weight 90/minute 20/minute 134/88 56.2 kg Oly Smith, [employer].ANESTHESIOLOGY FACULTY 05/08/2023 2:36 PM Signed CC: Patient presents with: Follow Up: Blood pressure HPI Steven Koenig is a 67 year old female who presents today for above. Worsening of chronic low back pain x 3 months. Pain radiates down the right leg to the foot and to the left buttock. Associated with right foot numbness. Denies weakness, bowel/bladder incontinence, saddle anesthesia, fever, chills, night sweats, unintentional weight loss. She has a history of lumbar DDD and spinal stenosis. Last saw pain management in 2019. Was doing better until recently. She has a lesion on her left ear present for over one year. Itchy and crusty at times. She did not follow-up with dermatology as previously recommended. COPD: symptoms are not well controlled. She is using Trelegy as directed, does not think it is working well. She continues to smoke about 1 PPD. HTN-Medication changes:No Taking all medications as prescribed: Yes Side effects: No Home BP's: No Last 3 Encounter BP Readings: Date: BP: 05/08/2023 134/88 04/02/2023 138/76 01/01/2023 170/83[bp true average[ Bipolar disorder/depression: taking Effexor 225 mg daily. Feels that she is doing well on current dose. Denies any manic symptoms, feeling down, depressed, hopeless, SI or HI REVIEW OF SYSTEMS RESPIRATORY: Positive for chronic cough, wheezing and SOB CARDIOVASCULAR: Negative for chest pain, leg swelling, and palpitations PAST MEDICAL HISTORY Diagnosis Date Acute pancreatitis 2010 Anisha Cruz Alcohol use disorder 01/18/2016 [facility] Anxiety 12/14/2015 Bipolar affective disorder, currently active (FORM[facility]LY [facility]) 01/18/2016 Dr. Angie Jones, [facility] Chronic bronchitis ([facility]) 07/26/2016 Closed skull fracture ([facility]) 1994 [facility], [facility] Coronary artery disease DDD (degenerative disc disease), cervical Endometriosis 2007 Essential hypertension 12/14/2015 GERD (gastroesophageal reflux disease) 03/13/2019 History of colon polyps History of gastric ulcer 12/14/2015 HLD (hyperlipidemia) Injury of left facial nerve 1994 PAD (peripheral artery disease) ([facility]) 09/28/2019 Recurrent major depression in partial remission ([facility]) 12/14/2015 S/P drug eluting coronary [...] TOTAL FACIAL NERVE DECOMPRESSION AND/REPAIR Left 1989 [facility] ALLERGIES Patient has no known allergies. MEDICATIONS isosorbide mononitrate ER (IMDUR) 30 mg 24 hr tablet TAKE 1 TABLET BY MOUTH EVERY DAY (Patient not taking: Reported on 04/02/2023) predniSONE (DELTASONE) 10 mg tablet TAKE TWO DAILY FOR 5 DAYS THEN ONE DAILY FOR 10 DAYS (Patient not taking: Reported on 04/02/2023) traZODone (DESYREL) 100 mg tablet Take 2 tablets by mouth daily at bedtime. zoapivnvkrl-mrqahdfwg-s ilanter (TRELEGY ELLIPTA) 200-62.5-25 mcg inhalation powder Inhale 1 Puff as instructed once daily. nystatin (MYCOSTATIN) 100,000 unit/mL suspension Take 5 mL by mouth four times daily. 1tsp swish in mouth for several minutes, then swallow (or expectorate) 4 times daily until gone. (Patient not taking: No sig reported) acetaminophen (TYLENOL EXTRA STRENGTH) 500 mg tablet [...] once daily. lisinopril (ZESTRIL, PRINIVIL) 40 mg tablet Take 1 tablet by mouth once daily. venlafaxine ER (EFFEXOR XR) 75 mg 24 hr capsule Take 1 capsule by mouth once daily. Take with 150 mg capsule to =150 mg triamcinolone acetonide (KENALOG) 0.1 % cream Apply 1 application to affected area three times daily. Ap (more content not included)... Normal [facility] Comprehensive metabolic 2000 panelon 05-08-2023 Albumin [Mass/Vol] 4.2 g/dL Normal 3.9-4.9 [facility] Comment on above: Order Comment: Speci men Type: BLOOD SPECIMENOrdering Facility: [facility] Address: [address] [place] [id number] Performed By: #### 2 4323-8, LIPNF ####[facility] LABCLIA [id number] [place] [address] [place] ALP [Catalytic activity/Vol] 86 U/L Normal 34-123 [facility] Comment on above: Order Comment: Speci men Type: BLOOD SPECIMENOrdering Facility: [facility] Address: [address] Performed By: #### 2 4323-8, LIPNF ####[facility] LABCLIA [id number] [place] [address] [place] ALT [Catalytic activity/Vol] 12 U/L Normal 7-38 [facility] Comment on above: Order Comment: Speci men Type: BLOOD SPECIMENOrdering Facility: [facility] Address: [address] Performed By: #### 2 4323-8, LIPNF ####[facility] LABCLIA [id number] [place] [address] [place] Anion gap [Moles/Vol] 13 mmol/L Normal 9-18 [facility] Comment on above: Order Comment: Speci men Type: BLOOD SPECIMENOrdering Facility: [facility] Address: [address] Performed By: #### 2 4323-8, LIPNF ####[facility] LABCLIA [id number] [place] [address] [place] AST [Catalytic activity/Vol] 15 U/L Normal 13-35 [facility] Comment on above: Order Comment: Speci men Type: BLOOD SPECIMENOrdering Facility: [facility] Address: [address] [place] [address] Performed By: #### 2 4323-8, LIPNF ####[facility] LABCLIA [id number] [place] [address] [place] Bilirubin [Mass/Vol] mg/dL Low 0.2-1.3 [facility] Comment on above: Order Comment: Speci men Type: BLOOD SPECIMENOrdering Facility: [facility] Address: [address] Performed By: #### 2 4323-8, LIPNF ####[facility] LABCLIA [id number] [place] [address] [place] Calcium [Mass/Vol] 9.3 mg/dL Normal 8.5-10.2 [facility] Comment on above: Order Comment: Speci men Type: BLOOD SPECIMENOrdering Facility: [facility] Address: [address] [place] [address] Performed By: #### 2 4323-8, LIPNF ####[facility] LABCLIA [id number] [place] [address] [place] Chloride [Moles/Vol] 102 mmol/L Normal 97-105 [facility] Comment on above: Order Comment: Speci men Type: BLOOD SPECIMENOrdering Facility: [facility] Address: [address] [place] [address] Performed By: #### 2 4323-8, LIPNF ####[facility] LABCLIA [id number] [place] [address] [place] CO2 [Moles/Vol] 22 mmol/L Normal 22-30 [facility] Comment on above: Order Comment: Speci men Type: BLOOD SPECIMENOrdering Facility: [facility] Address: [address] [place], [place] [address] Performed By: #### 2 4323-8, LIPNF ####[facility] LABCLIA [id number] [place] [address] [place] Creatinine [Mass/Vol] 0.97 mg/dL High 0.58-0.96 [facility] Comment on above: Order Comment: Speci men Type: BLOOD SPECIMENOrdering Facility: [facility] Address: [address] [place], [place] [address] Performed By: #### 2 4323-8, LIPNF ####[facility] LABCLIA [id number] [place] [address] [place] ESTIMATED GLOMERULAR FILTRATION RATE 64 mL/min/1.73m??? Normal >=60 [facility] Comment on above: Order Comment: [place] Type: BLOOD SPECIMENOrdering Facility: [facility] Address: [address] [place] [address] Result Comment: Johnna mated Glomerular Filtration Rate (eGFR) is calculated using the 2020 CKD-EPI creatinine equation. This equation utilizes serum creatinine, sex, and age as parameters. The creatinine assay has traceable calibration to isotope dilution-mass spectrometry. Refer to KDIGO guidelines for clinical interpretation. In patients with unstable renal function, e.g. those with acute kidney injury, the eGFR may not accurately reflect actual GFR. Performed By: #### 2 4323-8, LIPSEGUNDO ####[facility] LABCLIA [id number] [place] [address] [place] Glucose [Mass/Vol] 76 mg/dL Normal 74-99 [facility] Comment on above: Order Comment: [place] Type: BLOOD SPECIMENOrdering Facility: [facility] Address: [address] [place] [address] Result Comment: The [place] Diabetes Association (ADA) provides guidance for cutoff values for fasting glucose and random glucose. The ADA defines fasting as no caloric intake for at least 8 hours. Fasting plasma glucose results between 100 to 125 mg/dL indicate increased risk for diabetes (prediabetes). Fasting plasma glucose results greater than or equal to 126 mg/dL meet the criteria for diagnosis of diabetes. In the absence of unequivocal hyperglycemia, results should be confirmed by repeat testing. In a patient with classic symptoms of hyperglycemia or hyperglycemic crisis, random plasma glucose results greater than or equal to 200 mg/dL meet the criteria for diagnosis of diabetes. Reference: Standards of Medical Care in Diabetes 2016, [place] Diabetes Association. Diabetes Care. 2016.39(Suppl 1). Performed By: #### 2 4323-8, JOHN ####[facility] LABCLIA [id number] [place] [address] [place] Potassium [Moles/Vol] 5.3 mmol/L High 3.7-5.1 [facility] Comment on above: Order Comment: [place] Type: BLOOD SPECIMENOrdering Facility: [facility] Address: [address] Performed By: #### 2 4323-8, LIPNF ####[facility] LABCLIA [id number] [place] [address] [place] Protein [Mass/Vol] 6.9 g/dL Normal 6.3-8.0 [facility] Comment on above: Order Comment: Speci men Type: BLOOD SPECIMENOrdering Facility: [facility] Address: [address] Performed By: #### 2 4323-8, LIPNF ####[facility] LABCLIA [id number] [place] [address] [place] Sodium [Moles/Vol] 137 mmol/L Normal 136-144 [facility] Comment on above: Order Comment: Speci men Type: BLOOD SPECIMENOrdering Facility: [facility] Address: [address] [place], [place] [address] Performed By: #### 2 4323-8, LIPNF ####[facility] LABCLIA [id number] [place] [address] [place] Urea nitrogen [Mass/Vol] 13 mg/dL Normal 7-21 [facility] Comment on above: Order Comment: Speci men Type: BLOOD SPECIMENOrdering Facility: [facility] Address: [address] Performed By: #### 2 4323-8, LIPNF ####[facility] LABCLIA [id number] [place] [address] [place] LIPID PANEL, NONFASTINGon Cholesterol [Mass/Vol] 232 mg/dL High <[address] [facility] Comment on above: Order Comment: Speci men Type: BLOOD SPECIMENOrdering Facility: [facility] Address: [address] [place] [address] Result Comment: <200 mg/dL, Desirable 200-239 mg/dL, Borderline high >239 mg/dL, High Performed By: #### 2 4323-8, LIPNF ####[facility] LABCLIA [id number] [address] HDL CHOLESTEROL, NF 67 mg/dL Normal >39 [facility] Comment on above: Order Comment: Speci men Type: BLOOD SPECIMENOrdering Facility: [facility] Address: [address] [place] [address] Result Comment: 40-5 9 mg/dL, Acceptable >59 mg/dL, High: Negative risk factor for coronary heart disease <40 mg/dL, Low: Positive risk factor for coronary heart disease Performed By: #### 2 4323-8, LIPNF ####[facility] LABCLIA [id number] [address] LDL CHOLESTEROL, NF 143 mg/dL High <100 [facility] Comment on above: Order Comment: [facility] Type: BLOOD SPECIMENOrdering Facility: [facility] Address: [address] [place] [address] Result Comment: <100 mg/dL, Optimal 100-129 mg/dL, Near optimal/above optimal 130-159 mg/dL, Borderline high 160-189 mg/dL, High >189 mg/dL, Very high Secondary prevention optimal LDL Cholesterol levels are recommended to be < 70 mg/dL Performed By: #### 2 4323-8, LIPNF ####[facility] LABCLIA [id number] [address] LDL/HDL RATIO, NF 2.13 mg/dL Normal <2.54 [facility] Comment on above: Order Comment: [place] Type: BLOOD SPECIMENOrdering Facility: [facility] Address: [address] [place] [address] Result Comment: Refe rence: 1. National Cholesterol Education Program ATP III Guideline At-A-Glance Quick Desk Reference: National Heart, Lung, and Blood [place]. National Institutes of Health. 2001: NIH Publication No. 01-3305. 2. An International Atherosclerosis Society position paper: global recommendations for the management of dyslipidemia: executive summary, Atherosclerosis. 2014: 232(2):410-413. Performed By: #### 2 4323-8, LIPNF ####[facility] LABCLIA [id number] [address] [facility] NON HDL CHOL, NF 165 mg/dL High <130 [facility] Comment on above: Order Comment: Speci men Type: BLOOD SPECIMENOrdering Facility: [facility] Address: [address] [place] [address] Result Comment: <130 mg/dL, Optimal 130-159 mg/dL, Near optimal/above optimal 160-189 mg/dL, Borderline high 190-219 mg/dL, High >219 mg/dL, Very high Secondary prevention optimal non HDL Cholesterol levels are recommended to be <100 mg/dL Performed By: #### 2 4323-8, LIPNF ####[facility] LABCLIA [id number] [address] [facility] T CHOL/HDL RATIO NF 3.46 mg/dL Normal <5.10 [facility] Comment on above: Order Comment: Speci men Type: BLOOD SPECIMENOrdering Facility: [facility] Address: [address] [place] [address] Performed By: #### 2 4323-8, LIPNF ####[facility] LABCLIA [id number] [address] OF [place] TRIGLYCERIDES, NF 108 mg/dL Normal <150 [facility] Comment on above: Order Comment: Speci men Type: BLOOD SPECIMENOrdering Facility: [facility] Address: [address] [place] [address] Result Comment: <150 mg/dL, Normal 150-199 mg/dL, Borderline high 200-499 mg/dL, High >499 mg/dL, Very high Performed By: #### 2 4323-8, LIPNF ####[facility] LABCLIA [id number] [place] [id number] [place] [facility] VLDL CHOLESTEROL, NF 22 mg/dL Normal <30 [facility] Comment on above: Order Comment: Speci men Type: BLOOD SPECIMENOrdering Facility: [facility] Address: [address] [place] [id number] Performed By: #### 2 4323-8, LIPNF ####[facility] LABCLIA [id number] [address] [facility] XR LUMBAR 3V AP/LAT/L5-S1on 05-08-2023 XR LUMBAR 3V AP/LAT/L5-S1 * * *Final Report* * * DATE OF EXAM: May 08 2023 1:01PM WOX [id number] - XR LUMBAR 3V AP/LAT/L5-S1 / PROCEDURE REASON: multiple diagnoses * * * * Physician Interpretation * * * * EXAM TITLE: XR LUMBAR 3V AP/LAT/L5-S1 EXAM DATE/TIME: 05/08/2023 1:01 PM COMPARISON: None. CLINICAL INDICATION/HISTORY: Low back pain. TECHNIQUE: AP, lateral and cone down lateral views of the lumbar spine are presented. FINDINGS: There are five bbo-sto-oigwmru lumbar vertebrae. No fracture or subluxations are noted. Right-sided curvature/dextroscolios is is noted. There is L4-5 disc space narrowing. There is mild to moderate osteophyte formation. Others: There are vascular calcifications. A right-sided iliac vascular stent is noted. IMPRESSION: Lumbar spine degenerative changes with L4-5 disc space narrowing. 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: PSCB Transcribe Date/Time: May 10 2023 11:59A Dictated by : KARMEN MOSLEY MD This examination was interpreted and the report reviewed and electronically signed by: KARMEN MOSLEY MD on May 10 2023 12:02PM EST [id number] Normal [facility] XR Lumbar spine 3 Viewson Radiology Study observation (narrative) [facility] CNOVon 04-02-2023 CNOV Office Visit (VASSWS ) BRADENSTEVEN Nicolas ([id number]) 1955 F Date Time Provider Department 04/02/23 11:00 AM DORON SELF During your visit today, we recorded the following information about you: Pulse Blood pressure 88/minute 138/76 Doron Self DO 04/02/2023 10:58 AM Signed This office note has been dictated. Doron Self DO Allergies As of Date: 04/02/2023 (No Known Allergies) Date Reviewed: 04/02/2023 Reviewed by: CAESAR Hobson - Fully Assessed Reason for Visit: Established Patient [175] Primary Visit Diagnosis:PAD (peripheral artery disease) ([facility]) [I73.9] Order(s):PVR LEG [facility] [[id number]] Order #: [id number] FUTURE Prescriptions as of 04/02/2023 - isosorbide mononitrate ER (IMDUR) 30 mg 24 hr tablet TAKE 1 TABLET BY MOUTH EVERY DAY - predniSONE (DELTASONE) 10 mg tablet TAKE TWO DAILY FOR 5 DAYS THEN ONE DAILY FOR 10 DAYS - traZODone (DESYREL) 100 mg tablet Take 2 tablets by mouth daily at bedtime. - kezwltyfwdb-erifvwwor-q ilanter (TRELEGY ELLIPTA) 200-62.5-25 mcg inhalation powder Inhale 1 Puff as instructed once daily. - nystatin (MYCOSTATIN) 100,000 unit/mL suspension Take 5 mL by mouth four times daily. 1tsp swish in mouth for several minutes, then swallow (or expectorate) 4 times daily until gone. - acetaminophen (TYLENOL EXTRA STRENGTH) 500 mg tablet Take 1 tablet by mouth every 8 hours as needed for pain. - venlafaxine ER (EFFEXOR XR) 150 mg 24 hr capsule Take 1 capsule by mouth once daily. Take with 75 mg capsule to =225 mg - carvedilol (COREG) 6.25 [...] with 150 mg capsule to =150 mg - triamcinolone acetonide (KENALOG) 0.1 % cream Apply 1 application to affected area three times daily. Apply sparingly to area for rash/itching. - albuterol HFA (VENTOLIN HFA) 90 mcg/actuation inhaler Inhale 2 Puffs as instructed every 6 hours as needed for wheezing/shortness of breath. - amLODIPine (NORVASC) 10 mg tablet TAKE 1 TABLET BY MOUTH EVERY DAY - omeprazole (PRILOSEC) 40 mg capsule Take 1 capsule by mouth once daily. - aspirin 81 mg chewable tablet Take 1 tablet by mouth once daily. - clopidogrel (PLAVIX) 75 mg tablet Take 1 tablet by mouth once daily. Problem List As Of Date 04/02/2023 Noted Resolved Essential hypertension [I10] 12/14/2015 Recurrent major depression in partial remission*12/14/2015 Anxiety [F41.9] 12/14/2015 01/06/2021 Bipolar affective disorder, currently active (H*01/18/2016 History of alcohol abuse [F10.11] 01/18/2016 Chronic bronchitis (HCC) [J42] 07/26/2016 Hyperkalemia [E87.5] 07/27/2016 11/27/2018 Polycythemia [D75.1] 07/27/2016 11/27/2018 Spinal stenosis, lumbar region without neurogen*12/01/2018 Radiculopathy, lumbar region [M54.16] 12/01/2018 Smoker [F17.200] 03/13/2019 GERD (gastroesophageal reflux disease) [K21.9] 03/13/2019 Primary osteoarthritis of right hip [M16.11] 03/13/2019 10/06/2019 History of total right hip arthroplasty [Z96.64*03/25/2019 07/07/2020 Seasonal allergies [J30.2] 05/04/2019 Preop cardiovascular exam [Z01.810] 09/28/2019 10/06/2019 Precordial pain, short lived, 3-5 minutes, none*09/28/2019 07/07/2020 PAD (peripheral artery disease) (HCC) [I73.9] 09/28/2019 Anxiety and depression [F41.9, F32.A] 10/06/2019 Hypomagnesemia [E83.42] 10/22/2019 10/23/2019 Asthma [J45.909] 07/07/2020 07/07/2020 Prediabetes [R73.03] 02/04/2021 Chest pain [R07.9] 05/08/2021 Other chest pain [R07.89] 05/08/2021 Stenosis of carotid artery [I65.29] 05/08/2021 Mixed hyperlipidemia [E78.2] 05/08/2021 Abnormal stress test [R94.39] 08/26/2021 Dyspnea on exertion [R06.09] 08/26/2021 Coronary artery disease involving [place]*09/27/2021 Lung nodule [R91.1] 08/31/2022 History of hemoptysis [Z87.898] 11/20/2022 Encounter Status:Closed by DORON SELF on 04/02/23 Normal [facility] PVR ANK/LYONS/TOE [facility] on 04-02-2023 PVR ANK/LYONS/TOE [facility] Non-Invasive Vascular Laboratory Former[facility] Lower Extremity Arterial Physiology Study Bilateral/Complete Date of service/time: 04/02/2023 9:54:51 AM Name: MRS. STEVEN KOENIG Date of : 1955 Age: 67 years Gender: F Clinical Indication Right external iliac artery stenting and common femoral endarterectomy 10/20/2019. TECHNIQUE -------- An arterial physiological examination was performed, including measurement of blood pressures using continuous wave Doppler and recording of plethysmographic with or without Doppler waveforms at the below-mentioned limb segments. FINDINGS -------- RIGHT SIDE AT REST Right Doppler Waveforms Dorsalis pedis: Monophasic. Post tibial: Monophasic. Right Pressures Brachial: 149 mmHg Ankle dorsalis pedis: 90 mmHg CRISTIAN: 0.60 Ankle posterior tibial: 94 mmHg CRISTIAN: 0.63 Digit: 86 mmHg Right PVR Waveforms Ankle: Moderately dampened. Transmetatarsal: Moderately dampened. Digit: Moderately dampened. LEFT SIDE AT REST Left Doppler Waveforms Dorsalis pedis: Monophasic. Post tibial: Monophasic. Left Pressures Brachial: 136 mmHg Ankle dorsalis pedis: 88 mmHg CRISTIAN: 0.59 Ankle posterior tibial: 91 mmHg CRISTIAN: 0.61 Digit: 77 mmHg Left PVR Waveforms Ankle: Moderately dampened. Transmetatarsal: Moderately dampened. Digit: Moderately dampened. IMPRESSION Compared to prior study of 09/25/2022, Right ankle brachial index was 0.59 and left was 0.58. RIGHT SIDE Resting right ankle brachial index: 0.63 Right toe brachial index: 0.58 Abnormal ankle brachial index at rest diagnostic of peripheral artery disease. Abnormal toe brachial index at rest is evidence of peripheral artery disease. Right ankle: Moderate disease at rest. LEFT SIDE Resting left ankle brachial index: 0.61 Left toe brachial index: 0.52 Abnormal ankle brachial index at rest diagnostic of peripheral artery disease. Abnormal toe brachial index at rest is evidence of peripheral artery disease. Left ankle: Moderate disease at rest. Technologist: Becky Nazario RVT, RDPR Ordering physician: DORON SELF Interpreting physician: MALINDA Vitale DO Final [facility] : [id number] See Link below for Image Normal [facility] Basic Metabolic Panel Reflex Mgon 01-07-2023 Anion gap [Moles/Vol] 5 mmol/L Low 7-16 [facility] Calcium [Mass/Vol] 8.6 mg/dL Normal 8.6-10.2 [facility] Chloride [Moles/Vol] 95 mmol/L Low 98-107 [facility] CO2 [Moles/Vol] 32 mmol/L High 22-29 [facility] Creatinine [Mass/Vol] 0.8 mg/dL Normal 0.5-1.0 [facility] GFR Calculated >60 Normal >=60 [facility] Comment on above: Result Comment: Jimbo chongc calculator link [email or web address]://www.kidney.org/professionals/kdoqi/gfr_calculatorped Effective Aug 13, 2022 These results are not intended for use in patients <18 years of age. eGFR results are calculated without a race factor using the 2020 CKD-EPI equation. Careful clinical correlation is recommended, particularly when comparing to results calculated using previous equations. The CKD-EPI equation is less accurate in patients with extremes of muscle mass, extra-renal metabolism of creatinine, excessive creatinine ingestion, or following therapy that affects renal tubular secretion. Glucose [Mass/Vol] 143 mg/dL High 74-99 [facility] Magnesium [Moles/Vol] 6.2 mmol/L High 3.5-5.0 [facility] Comment on above: Result Comment: Spec imen is moderately Hemolyzed. Result may be artificially increased. Sodium [Moles/Vol] 132 mmol/L Normal 132-146 [facility] Urea nitrogen [Mass/Vol] 26 mg/dL High 6-23 [facility] Basic Metabolic Panel w/ Ref wu to MGon 01-07-2023 Anion gap [Moles/Vol] 5 mmol/L Low 7 - 16 mmol/L [facility] Calcium [Mass/Vol] 8.6 mg/dL 8.6 - 10. 2 mg/dL [facility] Chloride [Moles/Vol] 95 mmol/L Low 98 - 10 7 mmol/L [facility] CO2 [Moles/Vol] 32 mmol/L High 22 - 29 mmol/L [facility] Creatinine [Mass/Vol] 0.8 mg/dL 0.5 - 1.0 mg/dL [facility] GFR/1.73 sq M.predicted MDRD (S/P/Bld) [Vol rate/Area] mL/min/1.73 60 - PINF mL/min/1.73 [facility] Comment on above: Pediatric calculator link https://www.kidney.org/professionals/kdoqi/gfr_calculatorped Effective Aug 13, 2022 These results are not intended for use in patients <18 years of age. eGFR results are calculated without a race factor using the 2020 CKD-EPI equation. Careful clinical correlation is recommended, particularly when comparing to results calculated using previous equations. The CKD-EPI equation is less accurate in patients with extremes of muscle mass, extra-renal metabolism of creatinine, excessive creatinine ingestion, or following therapy that affects renal tubular secretion. Glucose [Mass/Vol] 143 mg/dL High 74 - 99 mg/dL [facility] Interpretation and review of laboratory results Abnormal [facility] Potassium [Moles/Vol] 6.2 mmol/L High 3.5 - 5.0 mmol/L [facility] Comment on above: Specimen is moderate ly Hemolyzed. Result may be artificially increased. Sodium [Moles/Vol] 132 mmol/L 132 - 146 mmol/L [facility] Urea nitrogen (BldV) [Mass/Vol] 26 mg/dL High 6 - 23 mg/dL [facility] CBC With Platelet and Differ entialon 01-07-2023 Abs Imm Granulocytes 0.06 E9/L Normal [facility] Absolute Basophils 0.01 E9/L Normal 0.00-0.20 [facility] Absolute Eosinophils 0.01 E9/L Low 0.05-0.50 [facility] Absolute Lymphocytes 0.61 E9/L Low 1.50-4.00 [facility] Absolute Monocytes 0.29 E9/L Normal 0.10-0.95 [facility] Absolute Neutrophils 8.76 E9/L High 1.80-7.30 [facility] Basophils/100 WBC (Bld) 0.1 % Normal 0.0-2.0 [facility] Eosinophils/100 WBC (Bld) 0.1 % Normal 0.0-6.0 [facility] Hematocrit (Bld) [Volume fraction] 42.8 % Normal 34.0-48.0 [facility] Hemoglobin (Bld) [Mass/Vol] 13.5 g/dL Normal 11.5-15.5 [facility] Imm Granulocytes 0.6 % Normal 0.0-5.0 [facility] Lymphocytes/100 WBC (Bld) 6.3 % Low 20.0-42.0 [facility] MCH (RBC) [Entitic mass] 31.3 pg Normal 26.0-35.0 [facility] MCHC 31.5 % Low 32.0-34.5 [facility] MCV (RBC) [Entitic vol] 99.1 fL Normal 80.0-99.9 [facility] Monocytes/100 WBC (Bld) 3.0 % Normal 2.0-12.0 [facility] Neutrophils/100 WBC (Bld) 89.9 % High 43.0-80.0 [facility] Platelet Count 421 E9/L Normal 130-450 [facility] Platelet mean volume (Bld) [Entitic vol] 9.8 fL Normal 7.0-12.0 [facility] RBC 4.32 E12/L Normal 3.50-5.50 [facility] RDW 15.1 fL High 11.5-15.0 [facility] WBC 9.7 E9/L Normal 4.5-11.5 [facility] CBC with Auto Differentialon 01-07-2023 Basophils (Bld) [#/Vol] 0.01 10*3/uL [facility] Basophils/100 WBC (Bld) 0.1 % 0.0 - 2.0 % [facility] Eosinophils Absolute 0.01 Low [facility] [employer] [place] Eosinophils/100 WBC (Bld) 0.1 % 0.0 - 6.0 % [facility] Hematocrit (Bld) [Volume fraction] 42.8 % 34.0 - 48.0 % [facility] Hemoglobin (Bld) [Mass/Vol] 13.5 g/dL 11.5 - 15.5 g/dL [facility] Immature Granulocytes # 0.06 E9/L B ON [facility] Immature granulocytes/100 WBC (Bld) 0.6 % 0.0 - 5.0 % [facility] Interpretation and review of laboratory results Abnormal [facility] Lymphocytes Absolute 0.61 Low [facility] Lymphocytes/100 WBC (Bld) 6.3 % Low 20.0 - 42.0 % [facility] MCH (RBC) [Entitic mass] 31.3 pg 26.0 - 35.0 pg [facility] MCHC (RBC) [Mass/Vol] 31.5 % Low 32.0 - 34.5 % [facility] MCV (RBC) [Entitic vol] 99.1 fL 80.0 - 99.9 fL [facility] Monocytes Absolute 0.29 [facility] Monocytes/100 WBC (Bld) 3.0 % 2.0 - 12.0 % [facility] Neutrophils Absolute 8.76 High [facility] Neutrophils/100 WBC (Bld) 89.9 % High 43.0 - 80.0 % [facility] Platelet distribution width (Bld) [Ratio] 15.1 fL High 11.5 - 15.0 fL [facility] Platelet mean volume (Bld) [Entitic vol] 9.8 fL 7.0 - 12.0 fL [facility] Platelets (Bld) [#/Vol] 421 10*3/uL [facility] RBC (Bld) [#/Vol] 4.32 10*6/uL [facility] WBC (Bld) [#/Vol] 9.7 10*3/uL [facility] Glucose Glucometer (BldC) [M ass/Vol]Ordered By: Dr. Teague on 01-07-2023 Glucose [Mass/Vol] 88 mg/dL 74-106 [facility] Comment on above: MANAGEMENT OF PATIEN T CARE PER NURSING PROTOCOL High Sensitivity Troponin To n 01-07-2023 High Sensitivity Troponin T 14 ng/L High 0-9 [facility] Comment on above: Result Comment: High Sensitivity Troponin values cannot be compared with other Troponin methodologies. Patients with high levels of Biotin oral intake (i.e. >5 mg/day) may have falsely decreased Troponin levels. Samples collected within 8 hours of biotin intake may require additional information for diagnosis. Troponinon 01-07-2023 Interpretation and review of laboratory results Abnormal [facility] Troponin, High Sensitivity 14 ng/L High 0 - 9 ng/L [facility] Comment on above: High Sensitivity Tro ponin values cannot be compared with other Troponin methodologies. Patients with high levels of Biotin oral intake (i.e. >5 mg/day) may have falsely decreased Troponin levels. Samples collected within 8 hours of biotin intake may require additional information for diagnosis. [facility] Bacteria identified Respirat ory culture Nom (Unsp spec)Ordered By: Dr. Luque on 01-06-2023 Respiratory Culture Streptococcus pneumoniae [facility] Absolute lymphocyte countOrd ered By: Dr. Luque on 01-03-2023 Lymphocytes Auto (Unsp spec) [#/Vol] 0.36 10*3/uL 0.83-4.51 [facility] Basophil percentageOrdered B y: Dr. Luque on 01-03-2023 Basophils/100 WBC (Bld) 0.6 % 0-1 [facility] Bilirubin [Mass/Vol] 0.20 mg/dL 0.20-1.00 [facility] Comment on above: For patients on eltr ombopag therapy, use of Dimension [place] TBIL is not recommended. Chloride [Moles/Vol] 112 mmol/L 98-107 [facility] Cholesterol [Mass/Vol] 225 mg/dL <200 [facility] Comment on above: <200 mg/dL Desirable 200-240 mg/dL Borderline >240 mg/dL High Risk Eosinophils/100 WBC (Bld) 0.0 % 0-5 [facility] Glucose [Mass/Vol] 236 mg/dL 74-106 [facility] Comment on above: Glucose result great er than or equal to 200 mg/dLsuggests DIABETES MELLITUS per A.D.A. criteria. Neutrophils (Bld) [#/Vol] 6.2 10*3/uL 2.0-7.7 [facility] Neutrophils/100 WBC (Bld) 92.4 % 47-70 [facility] Potassium [Moles/Vol] 4.3 mmol/L 3.5-5.1 [facility] Protein [Mass/Vol] 6.5 g/dL 6.4-8.2 [facility] Sodium [Moles/Vol] 141 mmol/L 136-145 [facility] Triglyceride [Mass/Vol] 63 mg/dL <199 [facility] Comment on above: The drugs N-Acetylcy steine and Metamizole may falsely depress this assay.Serum Triglycerides Reference Interval Normal <150 mg/dL Borderline high 150 - 199 mg/dL High 200 - 499 mg/dL Very High > or = 500 mg/dL WBC (Bld) [#/Vol] 6.7 10*3/uL 4.4-11.0 [facility] Blood erythrocytes count (nu mber/volume)Ordered By: Dr. Luque on 01-03-2023 RBC (Bld) [#/Vol] 4.25 10*6/uL 4.2-5.4 [facility] Blood hemoglobin measurement (mass/volume)Ordered By: Dr. Luque on 01-03-2023 Hemoglobin (Bld) [Mass/Vol] 13.4 g/dL 12.0-15.0 [facility] Blood lymphocytes/100 leukoc ytesOrdered By: Dr. Luque on 01-03-2023 Lymphocytes/100 WBC (Bld) 5.4 % 19-41 [facility] Blood manual differential co mment interpretation (narrative result)Ordered By: Dr. Luque on 01-03-2023 Manual differential comment Marquez (Bld) [Interp] SCANNED [facility] Blood monocytes/100 leukocyt esOrdered By: Dr. Luque on 01-03-2023 Monocytes/100 WBC (Bld) 0.9 % 0-10 [facility] Blood platelet mean volumeOr dered By: Dr. Luque on 01-03-2023 Platelet mean volume (Bld) [Entitic vol] 9.4 fL 6.2-12.0 [facility] Determination of erythrocyte mean corpuscular volume (MCV)Ordered By: Dr. Luque on 01-03-2023 MCV (RBC) [Entitic vol] 99.1 fL 81-99 [facility] Gram stain for investigation of transfusion reactionOrdered By: Dr. Luque on 01-03-2023 Microscopic observation Gram stain Nom (Unsp spec) [facility] Hematocrit Auto (Bld) [Volum e fraction]Ordered By: Dr. Luque on 01-03-2023 Hematocrit (Bld) [Volume fraction] 42.1 % 37-47 [facility] Laboratory - Chemistry and C hemistry - challengeOrdered By: Dr. Luque on 01-03-2023 ALP [Catalytic activity/Vol] 59 U/L 45-117 [facility] ALT [Catalytic activity/Vol] 19 U/L 13-56 [facility] CO2 [Moles/Vol] 25.0 mmol/L 21.0-32.0 [facility] Globulin (S) [Mass/Vol] 3.5 g/dL 2.2-4.2 [facility] Urea nitrogen/Creatinine [Mass ratio] 12.5 mg/mg 10-20 [facility] - Hematology and Cell countsOrdered By: Dr. Luque on 01-03-2023 Erythrocyte distribution width (RBC) [Entitic vol] 57.1 fL 35.1-43.9 [facility] Erythrocyte distribution width (RBC) [Ratio] 15.7 % 11.6-14.6 [facility] Immature granulocytes/100 WBC (Bld) 0.700 % 0.0-0.9 [facility] Comment on above: IG% - Immature Granu locytes (promyelocytes, myelocytes and metamyelocytes) > 1% indicates that a LEFT SHIFT is Present. MCH (RBC) [Entitic mass] 31.5 pg 27.0-32.0 [facility] Nucleated RBC/100 WBC (Bld) [Ratio] 0 % 0-5 [facility] MCHC Auto (RBC) [Mass/Vol]Or dered By: Dr. Luque on 01-03-2023 MCHC (RBC) [Mass/Vol] 31.8 g/dL 32-36 [facility] No Panel InformationOrdered By: Dr. Luque on 01-03-2023 Estimated Creatinine Clearance Calc 61.40 ml/min [facility] Estimated GFR (MDRD) Amer 92 mL/min >60 [facility] Comment on above: GFR Calc Estimated GFR (MDRD) Non-Af Amer 76 mL/min >60 [facility] Comment on above: Non- GFR Calc Troponin I High Sensitivity 17 pg/mL 3.0-54.0 [facility] Comment on above: Please Note: New Elsa t Units and Gender Specific Reference Ranges. For more information see Policy Stat Procedure [facility] High Sensitivity Troponin (TNIH) and attachments. Platelets bldOrdered By: Dr. Luque on 01-03-2023 Platelets (Bld) [#/Vol] 416 10*3/uL 150-450 [facility] Serum or plasma albumin giovanni urement (mass/volume)Ordered By: Dr. Luque on 01-03-2023 Albumin [Mass/Vol] 3.0 g/dL 3.2-5.0 [facility] Serum or plasma albumin/glob ulin mass ratioOrdered By: Dr. Luque on 01-03-2023 Albumin/Globulin [Mass ratio] 0.9 {ratio} 0.9-2.4 [facility] Serum or plasma calcium giovanni urement (mass/volume)Ordered By: Dr. Luque on 01-03-2023 Calcium [Mass/Vol] 8.1 mg/dL 8.5-10.1 [facility] Serum or plasma cholesterol in HDL measurement (mass/volume)Ordered By: Dr. Luque on 01-03-2023 Cholesterol in HDL [Mass/Vol] 98 mg/dL >40 [facility] Comment on above: The drugs N-Acetylcy steine and Metamizole may falsely depress this assay. Reference Range HDL <40 mg/dL Low HDL Cholesterol HDL >or= 60 mg/dL High HDL Cholesterol Serum or plasma cholesterol in VLDL measurement (mass/volume)Ordered By: Dr. Luque on 01-03-2023 Cholesterol in VLDL [Mass/Vol] 13 mg/dL 5-40 [facility] Serum or plasma creatinine m easurement (mass/volume)Ordered By: Dr. Luque on 01-03-2023 Creatinine [Mass/Vol] 0.80 mg/dL 0.55-1.02 [facility] Comment on above: The validity of the calculated GFR & GFRAA in patients over 70 years has not been determined. Clinical correlation is essential. Serum or plasma low density lipoprotein (LDL) cholesterol measurement (mass/volume)Ordered By: Dr. Luque on 01-03-2023 Cholesterol in LDL [Mass/Vol] 114 mg/dL 0-130 [facility] Serum or plasma urea nitroge n measurement (mass/volume)Ordered By: Dr. Luque on 01-03-2023 Urea nitrogen [Mass/Vol] 10 mg/dL 7-18 [facility] Thin prep Papanicolaou smear with manual screeningOrdered By: Dr. Luque on 01-03-2023 Thin prep Papanicolaou smear with manual screening 14 U/L 15-37 [facility] Thin prep Papanicolaou smear with manual screening 4 5-15 [facility] Whole blood hemoglobin A1c/t otal hemoglobin ratio (mass fraction)Ordered By: Dr. Sauer on 01-03-2023 HbA1c (Bld) [Mass fraction] 5.5 % 3.8-5.6 [facility] Comment on above: Normal < 5.7 % Predi abetic 5.7 - 6.4 % Diabetic >or= 6.5 % Please note range changes. Absolute lymphocyte countOrd ered By: Dr. Koroma on 01-02-2023 Lymphocytes Auto (Unsp spec) [#/Vol] 2.67 10*3/uL 0.83-4.51 [facility] Basophil percentageOrdered B y: Dr. Luque on 01-02-2023 Basophil percentage 3.6 mg/dL 2.5-4.9 [facility] Basophil percentageOrdered B y: Dr. Koroma on 01-02-2023 Basophils/100 WBC (Bld) 1.3 % 0-1 [facility] Bilirubin [Mass/Vol] 0.10 mg/dL 0.20-1.00 [facility] Comment on above: For patients on eltr ombopag therapy, use of Dimension [place] TBIL is not recommended. Chloride [Moles/Vol] 109 mmol/L 98-107 [facility] Eosinophils/100 WBC (Bld) 1.4 % 0-5 [facility] Glucose [Mass/Vol] 76 mg/dL 74-106 [facility] Neutrophils (Bld) [#/Vol] 3.6 10*3/uL 2.0-7.7 [facility] Neutrophils/100 WBC (Bld) 50.1 % 47-70 [facility] Potassium [Moles/Vol] 3.6 mmol/L 3.5-5.1 [facility] Protein [Mass/Vol] 7.3 g/dL 6.4-8.2 [facility] Sodium [Moles/Vol] 143 mmol/L 136-145 [facility] WBC (Bld) [#/Vol] 7.2 10*3/uL 4.4-11.0 [facility] Basophil percentage 0 SEEN /hpf 0-5 [facility] Bilirubin Test strip Ql (U)O rdered By: Dr. Koroma on 01-02-2023 Bilirubin Ql (U) Negative Negative [facility] Blood erythrocytes count (nu mber/volume)Ordered By: Dr. Koroma on 01-02-2023 RBC (Bld) [#/Vol] 4.42 10*6/uL 4.2-5.4 [facility] Blood hemoglobin measurement (mass/volume)Ordered By: Dr. Koroma on 01-02-2023 Hemoglobin (Bld) [Mass/Vol] 14.0 g/dL 12.0-15.0 [facility] Blood lymphocytes/100 leukoc ytesOrdered By: Dr. Koroma on 01-02-2023 Lymphocytes/100 WBC (Bld) 37.2 % 19-41 [facility] Blood monocytes/100 leukocyt esOrdered By: Dr. Koroma on 01-02-2023 Monocytes/100 WBC (Bld) 9.6 % 0-10 [facility] Blood platelet mean volumeOr dered By: Dr. Koroma on 01-02-2023 Platelet mean volume (Bld) [Entitic vol] 9.8 fL 6.2-12.0 [facility] Determination of erythrocyte mean corpuscular volume (MCV)Ordered By: Dr. Koroma on 01-02-2023 MCV (RBC) [Entitic vol] 99.3 fL 81-99 [facility] Hematocrit Auto (Bld) [Volum e fraction]Ordered By: Dr. Koroma on 01-02-2023 Hematocrit (Bld) [Volume fraction] 43.9 % 37-47 [facility] Ketones Test strip Ql (U)Ord ered By: Dr. Koroma on 01-02-2023 Ketones Ql (U) Negative Negative [facility] Laboratory - Chemistry and C hemistry - challengeOrdered By: Dr. Luque on 01-02-2023 Magnesium [Mass/Vol] 2.0 mg/dL 1.6-2.6 [facility] Laboratory - Chemistry and C hemistry - challengeOrdered By: Dr. Koroma on 01-02-2023 ALP [Catalytic activity/Vol] 63 U/L 45-117 [facility] ALT [Catalytic activity/Vol] 24 U/L 13-56 [facility] CO2 [Moles/Vol] 27.0 mmol/L 21.0-32.0 [facility] Globulin (S) [Mass/Vol] 3.9 g/dL 2.2-4.2 [facility] Lipase [Catalytic activity/Vol] 235 U/L 73-393 [facility] Urea nitrogen/Creatinine [Mass ratio] 13.7 mg/mg 10-20 [facility] Laboratory - Drug toxicology Ordered By: Dr. Koroma on 01-02-2023 Amphetamines Ql (U) Negative <1000 ng/mL [facility] Benzodiazepines Ql (U) Negative < 200 ng/mL [facility] Cannabinoids Screen Ql (U) Negative < 50 ng/mL [facility] Cocaine Ql (U) Negative < 300 ng/mL [facility] Opiates Ql (U) Negative < 300 ng/mL [facility] Laboratory - Hematology and Cell countsOrdered By: Dr. Koroma on 01-02-2023 Erythrocyte distribution width (RBC) [Entitic vol] 56.6 fL 35.1-43.9 [facility] Erythrocyte distribution width (RBC) [Ratio] 15.6 % 11.6-14.6 [facility] Immature granulocytes/100 WBC (Bld) 0.400 % 0.0-0.9 [facility] Comment on above: IG% - Immature Granu locytes (promyelocytes, myelocytes and metamyelocytes) > 1% indicates that a LEFT SHIFT is Present. MCH (RBC) [Entitic mass] 31.7 pg 27.0-32.0 [facility] Nucleated RBC/100 WBC (Bld) [Ratio] 0 % 0[facility] [Mass/Vol]Or dered By: Dr. Koroma on 01-02-2023 MCHC (RBC) [Mass/Vol] 31.9 g/dL 32-36 [facility] Mucus LM Ql (Urine sed)Order ed By: Dr. Koroma on 01-02-2023 Mucus Ql (Urine sed) 0 SEEN /hpf [facility] Nitrite Test strip Ql (U)Ord ered By: Dr. Koroma on 01-02-2023 Nitrite Ql (U) Negative Negative [facility] No Panel InformationOrdered By: Dr. Koroma on 01-02-2023 Estimated Creatinine Clearance Calc 61.40 ml/min [facility] Estimated GFR (MDRD) Amer 91 mL/min >60 [facility] Comment on above: GFR Calc Estimated GFR (MDRD) Non-Af Amer 76 mL/min >60 [facility] Comment on above: Non- GFR Calc Ethyl Alcohol Level 112.0 mg/dL [facility] Comment on above: The serum:whole bloo d ethanol ratio is approximately 1.14and varies slightly with hematocrit. Medical Alcohol reference interval and critical value innon-tolerant individuals; 50 - 100 Impairment 100 Intoxication 100 - 250 Severe Poisoning 250 - 400 Deep/possible fatal coma Troponin I High Sensitivity 17 pg/mL 3.0-54.0 [facility] Comment on above: Please Note: New Elsa t Units and Gender Specific Reference Ranges. For more information see Policy Stat Procedure [facility] High Sensitivity Troponin (TNIH) and attachments. MDMA (Ecstasy) Screen Negative < 500 ng/mL [facility] Urine Barbiturates Screen Negative < 200 ng/mL [facility] Urine Drug Screen Comment [facility] Comment on above: CONFIRMATORY TESTING FOR ALL POSITIVE URINE DRUG SCREENRESULTS WILL ONLY BE SENT OUT UPON PHYSICIAN ORDER. VISTA Urine Drug Screen methods provide only preliminaryanalytical test results. A more specific alternate chemicalmethod must be used in order to obtain a confirmedanalytical result. Gas chromatography/mass spectrometery(GC/MS) is the preferred confirmatory method. Clinicalconsideration and professional judgement should be appliedto any drug of abuse test result, particularly whenpreliminary positive results are used. URINE TCA TESTING MUST BE ORDERED SEPARATELY. USE TESTMNEMONIC: [facility] Urine Methadone Screen Negative < 300 ng/mL [facility] Platelets bldOrdered By: Dr. Koroma on 01-02-2023 Platelets (Bld) [#/Vol] 478 10*3/uL 150-450 [facility] Protein Test strip Ql (U)Ord ered By: Dr. Koroma on 01-02-2023 Protein Ql (U) Negative Negative [facility] Serum or plasma albumin giovanni urement (mass/volume)Ordered By: Dr. Koroma on 01-02-2023 Albumin [Mass/Vol] 3.4 g/dL 3.2-5.0 [facility] Serum or plasma albumin/glob ulin mass ratioOrdered By: Dr. Koroma on 01-02-2023 Albumin/Globulin [Mass ratio] 0.9 {ratio} 0.9-2.4 [facility] Serum or plasma calcium giovanni urement (mass/volume)Ordered By: Dr. Koroma on 01-02-2023 Calcium [Mass/Vol] 8.5 mg/dL 8.5-10.1 [facility] Serum or plasma creatinine m easurement (mass/volume)Ordered By: Dr. Koroma on 01-02-2023 Creatinine [Mass/Vol] 0.80 mg/dL 0.55-1.02 [facility] Comment on above: The validity of the calculated GFR & GFRAA in patients over 70 years has not been determined. Clinical correlation is essential. Serum or plasma urea nitroge n measurement (mass/volume)Ordered By: Dr. Koroma on 01-02-2023 Urea nitrogen [Mass/Vol] 11 mg/dL 7-18 [facility] Serum procalcitonin measurem entOrdered By: Dr. Luque on 01-02-2023 Procalcitonin [Mass/Vol] ng/mL 0.00-0.09 [facility] Comment on above: A procalcitonin (PCT ) level above 2.0 ng/mL on the first day of ICU admission is associated with a high risk for progression to severe sepsis and/or septic shock. A PCT level below 0.5 ng/mL on the first day of ICU admission is associated with a low risk for progression to severe and/or septic shock. Note: Concentrations <0.5 ng/mL do not exclude an infection on account of localized infections (without systemic signs) which can be associated with such low concentrations, or a systemic infection in its initial stages (<6 hours). Furthermore, increased procalcitonin can occur without infection. PCT concentrations between 0.5 and 2.0 ng/mL should be interpreted taking into account the patient's history. It is recommended to retest PCT within 6-24 hours if any concentrations <2 ng/mL are obtained. Squamous epithelial cells de tection in urine sediment by light microscopyOrdered By: Dr. Koroma on 01-02-2023 Epithelial cells.squamous LM Ql (Urine sed) 0-5 SEEN /hpf 5-10 [facility] Thin prep Papanicolaou smear with manual screeningOrdered By: Dr. Koroma on 01-02-2023 Thin prep Papanicolaou smear with manual screening 17 U/L 15-37 [facility] Thin prep Papanicolaou smear with manual screening 7 5-15 [facility] Urine blood detectionOrdered By: Dr. Koroma on 01-02-2023 RBC Ql (U) Negative Negative [facility] RBC Ql (U) 0 SEEN /hpf 0-5 [facility] Urine clarityOrdered By: Dr. Koroma on 01-02-2023 Clarity (U) Clear Clear [facility] Urine color determinationOrd ered By: Dr. Koroma on 01-02-2023 Color (U) Yellow Yellow [facility] Urine glucose detectionOrder ed By: Dr. Koroma on 01-02-2023 Glucose Ql (U) Normal mg/dl Normal [facility] Urine leukocyte esterase det ection by dipstickOrdered By: Dr. Koroma on 01-02-2023 Leukocyte esterase Test strip Ql (U) Negative Negative [facility] Urine pHOrdered By: Dr. Haider mark on 01-02-2023 pH (U) 6.0 [pH] 5.0 - 8.0 [facility] Urine phencyclidine (PCP) de tectionOrdered By: Dr. Koroma on 01-02-2023 Phencyclidine Ql (U) Negative < 25 ng/mL [facility] Urine sediment bacteria coun t by microscopy (number/high power field)Ordered By: Dr. Koroma on 01-02-2023 Bacteria LM.HPF (Urine sed) [#/Area] 0 /[HPF] None Seen [facility] Urine specific gravity measu rementOrdered By: Dr. Koroma on 01-02-2023 Specific gravity (U) [Rel density] 1.005 1.002-1.030 [facility] Urobilinogen Auto test strip Ql (U)Ordered By: Dr. Koroma on 01-02-2023 Urobilinogen Ql (U) Normal mg/dl Normal [facility] A1AT SerPl-mCncon 01-01-2023 Alpha 1 antitrypsin [Mass/Vol] 192 mg/dL Normal 90-200 [facility] Comment on above: Order Comment: Speci men Type: BLOOD SPECIMENOrdering Facility: [facility] Address: [address] [place] [address] Performed By: #### 1 825-9 ####[facility] LABIA [id number] [place] [address] [place] CBC W Auto Differential pane l (Bld)on 01-01-2023 Basophils (Bld) [#/Vol] 0.07 10*3/uL Normal <0.11 [facility] Comment on above: Order Comment: Speci men Type: BLOOD SPECIMENOrdering Facility: [facility] Address: [address] [place] [address] Performed By: #### 5 7021-8 ####[facility] [id number] [place] [address] [place] Basophils/100 WBC (Bld) 1.0 % Normal [facility] Comment on above: Order Comment: Speci men Type: BLOOD SPECIMENOrdering Facility: [facility] Address: [address] [place] [address] Performed By: #### 5 7021-8 ####[facility]IA [id number] [place] [address] [place] Differential cell count method Nom (Bld) Auto Normal [facility] Comment on above: Order Comment: Speci men Type: BLOOD SPECIMENOrdering Facility: [facility] Address: [address] [place], [place] [id number] Performed By: #### 5 7021-8 ####[facility] LABCLIA [id number] [place] [address] [place] Eosinophils (Bld) [#/Vol] 0.07 10*3/uL Normal <0.46 [facility] Comment on above: Order Comment: Speci men Type: BLOOD SPECIMENOrdering Facility: [facility] Address: [address] [place], [place] [id number] Performed By: #### 5 7021-8 ####[facility] LABCLIA [id number] [address] [place] Eosinophils/100 WBC (Bld) 1.0 % Normal [facility] Comment on above: Order Comment: Speci men Type: BLOOD SPECIMENOrdering Facility: [facility] Address: [address] [place], [place] [id number] Performed By: #### 5 7021-8 ####[facility] LABCLIA [id number] [address] [place] Erythrocyte distribution width (RBC) [Ratio] 15.8 % High 11.5-15.0 [facility] Comment on above: Order Comment: Speci men Type: BLOOD SPECIMENOrdering Facility: [facility] Address: [address] [place] [address] Performed By: #### 5 7021-8 ####[facility] LABIA [id number] [place] [address] [place] Hematocrit (Bld) [Volume fraction] 44.4 % Normal 36.0-46.0 [facility] Comment on above: Order Comment: Speci men Type: BLOOD SPECIMENOrdering Facility: [facility] Address: [address] [place], [place] [address] Performed By: #### 5 7021-8 ####[facility] LABCLIA [id number] [place] [address] [place] Hemoglobin (Bld) [Mass/Vol] 14.1 g/dL Normal 11.5-15.5 [facility] Comment on above: Order Comment: Speci men Type: BLOOD SPECIMENOrdering Facility: [facility] Address: [address] Performed By: #### 5 7021-8 ####[facility] LABCLIA [id number] [place] [address] [place] Immature granulocytes (Bld) [#/Vol] 10*3/uL Normal <0.10 [facility] Comment on above: Order Comment: Speci men Type: BLOOD SPECIMENOrdering Facility: [facility] Address: [address] [place], [place] [address] Performed By: #### 5 7021-8 ####[facility] LABIA [id number] [place] [address] [place] Immature granulocytes/100 WBC (Bld) 0.3 % Normal [facility] Comment on above: Order Comment: Speci men Type: BLOOD SPECIMENOrdering Facility: [facility] Address: [address] [place], [place] [address] Performed By: #### 5 7021-8 ####[facility] LABCLIA [id number] [place] [address] [place] Lymphocytes (Bld) [#/Vol] 1.67 10*3/uL Normal 1.00-4.00 [facility] Comment on above: Order Comment: Speci men Type: BLOOD SPECIMENOrdering Facility: [facility] Address: [address] [place], [place] [address] Performed By: #### 5 7021-8 ####[facility] LABCLIA [id number] [address] [place] Lymphocytes/100 WBC (Bld) 23.3 % Normal [facility] Comment on above: Order Comment: Speci men Type: BLOOD SPECIMENOrdering Facility: [facility] Address: [address] [place] [address] Performed By: #### 5 7021-8 ####[facility] LABIA [id number] [address] [place] MCH (RBC) [Entitic mass] 32.0 pg Normal 26.0-34.0 [facility] Comment on above: Order Comment: Speci men Type: BLOOD SPECIMENOrdering Facility: [facility] Address: [address] [place] [address] Performed By: #### 5 7021-8 ####[facility] LABIA [id number] [address] [place] MCHC (RBC) [Mass/Vol] 31.8 g/dL Normal 30.5-36.0 [facility] Comment on above: Order Comment: Speci men Type: BLOOD SPECIMENOrdering Facility: [facility] Address: [address] [place], [place] [address] Performed By: #### 5 7021-8 ####[facility] LABIA [id number] [address] [place] MCV (RBC) [Entitic vol] 100.9 fL High 80.0-100.0 C [facility] Comment on above: Order Comment: Speci men Type: BLOOD SPECIMENOrdering Facility: [facility] Address: [address] [place], [place] [address] Performed By: #### 5 7021-8 ####[facility] LABIA [id number] [address] [place] Monocytes (Bld) [#/Vol] 0.91 10*3/uL High <0.87 [facility] Comment on above: Order Comment: Speci men Type: BLOOD SPECIMENOrdering Facility: [facility] Address: [address] Performed By: #### 5 7021-8 ####[facility] LABCLIA [id number] [address] [place] Monocytes/100 WBC (Bld) 12.7 % Normal [facility] Comment on above: Order Comment: Speci men Type: BLOOD SPECIMENOrdering Facility: [facility] Address: [address] Performed By: #### 5 7021-8 ####[facility] LABCLIA [id number] [place] [address] [place] Neutrophils (Bld) [#/Vol] 4.44 10*3/uL Normal 1.45-7.50 [facility] Comment on above: Order Comment: Speci men Type: BLOOD SPECIMENOrdering Facility: [facility] Address: [address] Performed By: #### 5 7021-8 ####[facility] LABCLIA [id number] [address] STATES [facility] Neutrophils/100 WBC (Bld) 61.7 % Normal [facility] Comment on above: Order Comment: Speci men Type: BLOOD SPECIMENOrdering Facility: [facility] Address: [address] Performed By: #### 5 7021-8 ####[facility] LABCLIA [id number] [place] [address] [place] Nucleated RBC (Bld) [#/Vol] 10*3/uL Normal <0.01 [facility] Comment on above: Order Comment: Speci men Type: BLOOD SPECIMENOrdering Facility: [facility] Address: [address] Performed By: #### 5 7021-8 ####[facility] LABCLIA [id number] [place] [address] [place] Nucleated RBC/100 WBC (Bld) [Ratio] 0.0 /100 WBC Normal [facility] Comment on above: Order Comment: Speci men Type: BLOOD SPECIMENOrdering Facility: [facility] Address: [address] [place] [address] Performed By: #### 5 7021-8 ####[facility] LABIA [id number] [place] [address] [place] Platelet mean volume (Bld) [Entitic vol] 10.1 fL Normal 9.0-12.7 [facility] Comment on above: Order Comment: Speci men Type: BLOOD SPECIMENOrdering Facility: [facility] Address: [address] [place] [address] Performed By: #### 5 7021-8 ####[facility] [id number] [place] [address] [place] Platelets (Bld) [#/Vol] 439 10*3/uL High 150-400 [facility] Comment on above: Order Comment: Speci men Type: BLOOD SPECIMENOrdering Facility: [facility] Address: [address] [place], [place] [address] Performed By: #### 5 7021-8 ####[facility] LABIA [id number] [place] [address] [place] RBC (Bld) [#/Vol] 4.40 10*6/uL Normal 3.90-5.20 [facility] Comment on above: Order Comment: Speci men Type: BLOOD SPECIMENOrdering Facility: [facility] Address: [address] [place], [place] [address] Performed By: #### 5 7021-8 ####[facility] LABIA [id number] [place] [address] [place] WBC (Bld) [#/Vol] 7.18 10*3/uL Normal 3.70-11.00 [facility] Comment on above: Order Comment: Speci men Type: BLOOD SPECIMENOrdering Facility: [facility] Address: [address] [place] [address] Performed By: #### 5 7021-8 ####[facility] LABCLIA [id number] [id number] [id number] [facility] CNOVon 01-01-2023 CNOV Office Visit (INTMWS ) STEVEN KOENIG ([id number]) 1955 F Date Time Provider Department 01/01/23 2:00 PM OLY SMITH INTMWS During your visit today, we recorded the following information about you: Pulse Respiration Blood pressure Weight 85/minute 22/minute 170/83 58.1 kg Oly Smith APRN.ANESTHESIOLOGY FACULTY 01/01/2023 3:27 PM Addendum CC: Patient presents with: Follow Up HPI Steven Koenig is a 67 year old female who presents today for 4 month follow-up however her main concern today is alcohol withdrawal. Patient states she started drinking heavily after the loss of her brother, son and dog. For the past three months she has been drinking about 30-40 beers a week, sometimes more. Occasionally has about 1 quart of whiskey in one day. Hasn't had a drink since yesterday morning, had three beers. Since then she has been feeling anxious, tired, shaky, weak, and nauseated. Denies sweats, itching, numbness/tingling, burning or crawling sensations, visual or auditory hallucinations, headaches, seizures, confusion or disorientation. She is interested inpatient [...] Alcohol use disorder 01/18/2016 Dr. Angie Jones, [facility] Anxiety 12/14/2015 Bipolar affective disorder, currently active ([facility]) 01/18/2016 Dr. Angie Jones, [facility] Chronic bronchitis ([facility]) 07/26/2016 Closed skull fracture ([facility]) 1994 [facility], [facility] Coronary artery disease DDD (degenerative disc disease), cervical Endometriosis 2007 Essential hypertension 12/14/2015 GERD (gastroesophageal reflux disease) 03/13/2019 History of colon polyps History of gastric ulcer 12/14/2015 HLD (hyperlipidemia) Injury of left facial nerve 1994 PAD (peripheral artery disease) ([facility]) 09/28/2019 Recurrent major depression in partial remission ([facility]) 12/14/2015 S/P drug eluting coronary [...] TOTAL FACIAL NERVE DECOMPRESSION AND/REPAIR Left 1989 [facility] ALLERGIES Patient has no known allergies. MEDICATIONS traZODone (DESYREL) 100 mg tablet Take 2 tablets by mouth daily at bedtime. xwcnbzduhla-nhpwfydgw-c ilanter (TRELEGY ELLIPTA) 200-62.5-25 mcg inhalation powder Inhale 1 Puff as instructed once daily. predniSONE (DELTASONE) 10 mg tablet Take two daily for 5 days then one daily for 10 days nystatin (MYCOSTATIN) 100,000 unit/mL suspension Take 5 [...] once daily. lisinopril (ZESTRIL, PRINIVIL) 40 mg tablet Take [...] mg chewable tablet Take 1 tabl (more content not included)... Normal [facility] Frank 01-01-[address] [facility] STEVEN KOENIG ([id number]) 1955 F Date Time Provider Department 01/01/23 [facility] During your visit today, we recorded the following information about you: GIO Cardona 01/01/2023 3:55 PM Signed Behavioral Health Social Work Progress Note Patient identified for [facility] from: PCP Reason for referral: Resources Behavioral Health Resources: Substance abuse [facility] encounter type: Telephone Encounter Attempts to Outreach: 1 attempt Referral made: Psychology - External Psychology-External referral type: Alcohol/Drug Treatment Reason for external referral: Patient seeking group home support, Patient needs services closer to home [...] was a teenager and has been to rehabs in the past, but has not been sober for long periods of time. Uses drinking as a coping mechanism to deal with anxiety and stress. Patient was able to write the following resources down as places to call or look into for detoxification and substance abuse: [facility] [address] [place] [address] [id number] [facility] [address] [place] [phone] Patient states she may end up just going to [place] [facility] if she can't find anywhere to go to assist as she really needs to detox. Advised to call these numbers and if additional assistance is needed to inform this SW. GIO Cardona January 01, 2023 Allergies As of Date: 01/01/2023 (No Known Allergies) Date Reviewed: 01/01/2023 Reviewed by: Oly Smith APRN.ANESTHESIOLOGY FACULTY - Fully Assessed Reason for Visit: Behavioral Health Social Work [Other] Prescriptions as of 01/01/2023 - traZODone (DESYREL) 100 mg tablet Take 2 tablets by mouth daily at bedtime. - eaiuoedzkrz-espfbnqwf-j ilanter (TRELEGY ELLIPTA) 200-62.5-25 mcg inhalation powder Inhale 1 Puff as instructed once daily. - predniSONE (DELTASONE) 10 mg tablet Take two daily for 5 days then one daily for 10 days - nystatin (MYCOSTATIN) 100,000 unit/mL suspension Take 5 mL by mouth four times daily. 1tsp swish in mouth for several minutes, then swallow (or expectorate) 4 times daily until gone. - acetaminophen (TYLENOL EXTRA STRENGTH) 500 mg tablet Take 1 tablet by mouth every 8 hours as needed for pain. - venlafaxine ER (EFFEXOR XR) 150 mg 24 hr capsule Take 1 capsule by mouth once daily. Take with 75 mg capsule to =225 mg - carvedilol (COREG) 6.25 [...] with 150 mg capsule to =150 mg - triamcinolone acetonide (KENALOG) 0.1 % cream Apply 1 application to affected area three times daily. Apply sparingly to area for rash/itching. - albuterol HFA (VENTOLIN HFA) 90 mcg/actuation inhaler Inhale 2 Puffs as instructed every 6 hours as needed for wheezing/shortness of breath. - amLODIPine (NORVASC) 10 [...] [I10] 12/14/2015 Recurrent major depression in partial remission*12/14/2015 Anxiety [F41.9] 12/14/2015 01/06/2021 Bipolar affective disorder, currently active (H*01/18/2016 History of alcohol abuse [F10.11] 01/18/2016 Chronic bronchitis (HCC) [J42] 07/26/2016 Hyperkalemia [E87.5] 07/27/2016 11/27/2018 Polycythemia [D75.1] 07/27/2016 11/27/2018 Spinal stenosis, lumbar region without neurogen*12/01/2018 Radiculopathy, lumbar region [M54.16] 12/01/2018 Smoker [F17.200] 03/13/2019 GERD (gastroesophageal reflux disease) [K21.9] 03/13/2019 Primary osteoarthritis of right hip [M16.11] 03/13/2019 10/06/2019 History of total right hip arthroplasty [Z96.64*03/25/2019 07/07/2020 Seasonal allergies [J30.2] 05/04/2019 Preop cardiovascular exam [Z01.810] 09/28/2019 10/06/2019 Precordial pain, short lived, 3-5 minutes, none*09/28/2019 07/07/2020 PAD (peripheral artery disease) (HCC) [I73.9] 09/28/2019 (more content not included)... Normal [facility] XR CHEST 2V FRONTAL/LATon XR CHEST 2V FRONTAL/LAT * * *Final Repor t* * * DATE OF EXAM: Jan 01 2023 1:02PM WOX [id number] - XR CHEST 2V FRONTAL/LAT / PROCEDURE REASON: Hemoptysis * * * * Physician Interpretation * * * * EXAMINATION: CHEST RADIOGRAPH (2 VIEW FRONTAL and LATERAL) CLINICAL HISTORY: Hemoptysis MQ: XC2_6 EXAM DATE/TIME: 01/01/2023 1:02 PM COMPARISON: 03/08/2021 RESULT: Lines, tubes, and devices: Anterior cervical fusion hardware Lungs and pleura: No consolidation. No lung mass. No pleural effusion. No pneumothorax. Cardiomediastinal silhouette: Normal cardiomediastinal silhouette. Bones and soft tissues: Unremarkable. IMPRESSION: No acute radiographic abnormality. 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: PSCB Transcribe Date/Time: Jan 01 2023 3:22P Dictated by : HUBER VILA MD This examination was interpreted and the report reviewed and electronically signed by: HUBER VILA MD on Jan 01 2023 3:23PM EST [id number] Normal [facility] XR Chest PA and Lateralon IMPRESSION: No acute radiographic abnormality. 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: SRAVANI Transcribe Date/Time: Jan 01 2023 3:22P Dictated by : HUBER VILA MD This examination was interpreted and the report reviewed and electronically signed by: HUBER VILA MD on Jan 01 2023 3:23PM [facility] DIVISION OF RADIOLOGY * * *Final Report* * * DATE OF EXAM: Jan 01 2023 1:02PM WOX [id number] - XR CHEST 2V FRONTAL/LAT / PROCEDURE REASON: Hemoptysis * * * * Physician Interpretation * * * * EXAMINATION: CHEST RADIOGRAPH (2 VIEW FRONTAL & LATERAL) CLINICAL HISTORY: Hemoptysis MQ: XC2_6 EXAM DATE/TIME: 01/01/2023 1:02 PM COMPARISON: 03/08/2021 RESULT: Lines, tubes, and devices: Anterior cervical fusion hardware Lungs and pleura: No consolidation. No lung mass. No pleural effusion. No pneumothorax. Cardiomediastinal silhouette: Normal cardiomediastinal silhouette. Bones and soft tissues: Unremarkable. DIVISION OF RADIOLOGY Provider, [facility] - 01/01/2023 * * *Final Report* * * DATE OF EXAM: Jan 01 2023 1:02PM WOX [id number] - XR CHEST 2V FRONTAL/LAT / PROCEDURE REASON: Hemoptysis * * * * Physician Interpretation * * * * EXAMINATION: CHEST RADIOGRAPH (2 VIEW FRONTAL & LATERAL) CLINICAL HISTORY: Hemoptysis MQ: XC2_6 EXAM DATE/TIME: 01/01/2023 1:02 PM COMPARISON: 03/08/2021 RESULT: Lines, tubes, and devices: Anterior cervical fusion hardware Lungs and pleura: No consolidation. No lung mass. No pleural effusion. No pneumothorax. Cardiomediastinal silhouette: Normal cardiomediastinal silhouette. Bones and soft tissues: Unremarkable. IMPRESSION IMPRESSION: No acute radiographic abnormality. 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: SRAVANI Transcribe Date/Time: Jan 01 2023 3:22P Dictated by : HUBER VILA MD This examination was interpreted and the report reviewed and electronically signed by: HUBER VILA MD on Jan 01 2023 3:23PM [facility] Radiology Study observation (narrative) [facility] XR Chest PA and LateralOrder ed By: [facility] Provider on 01-01-2023 [facility] .Auto Diffon 12-23-2022 Basophil, Absolute 0.1 10 3/mcL Normal 0.0-0.2 [facility] ([place]) Comment on above: Performed By: #### T ROPHS, GFR, CMP, PBNP #### [address] [address] Basophils/100 WBC (Bld) 1.5 % Normal 0.0-2.5 A [facility] ([place]) Comment on above: Performed By: #### T ROPHS, GFR, CMP, PBNP #### [address] [address] Eosinophil, Absolute 0.1 10 3/mcL Normal 0.0-0.4 [facility] ([place]) Comment on above: Performed By: #### T ROPHS, GFR, CMP, PBNP #### [address] [address] Eosinophils/100 WBC (Bld) 1.1 % Normal 0.0-7.0 Counts Include [address] [facility] ([place]) Comment on above: Performed By: #### T ROPHS, GFR, CMP, PBNP #### [address] [address] Lymphocyte, Absolute 2.0 10 3/mcL Normal 0.8-3.9 [facility] ([place]) Comment on above: Performed By: #### T ROPHS, GFR, CMP, PBNP #### [address] [address] Lymphocytes/100 WBC (Bld) 36.4 % Normal 10.0-50.0 Counts Include [address] [facility] ([place]) Comment on above: Performed By: #### T ROPHS, GFR, CMP, PBNP #### [address] [address] Monocyte, Absolute 0.5 10 3/mcL Normal 0.2-1.0 [facility] ([place]) Comment on above: Performed By: #### T ROPHS, GFR, CMP, PBNP #### [address] [address] Monocytes/100 WBC (Bld) 9.3 % Normal 1.7-13.0 A [facility] ([place]) Comment on above: Performed By: #### T GOMEZ, GFR, CMP, PBNP #### [address] [address] Neutrophils/100 WBC (Bld) 51.7 % Normal 37.0-80.0 Counts Include [address] [facility] ([place]) Comment on above: Performed By: #### T GOMEZ, GFR, CMP, PBNP #### [address] [address] .GFRon 12-23-2022 GFR 100 ml/min/1.73sqm Normal Counts Include [address] [facility] At [facility] ([place]) Comment on above: Result Comment: GFR Population mean for , Non- Americans Ages 20-29 = 116 mL/min/1.73 sq.m. Ages 30-39 = 107 mL/min/1.73 sq.m. Ages 40-49 = 99 mL/min/1.73 sq.m. Ages 50-59 = 93 mL/min/1.73 sq.m. Ages 60-69 = 85 mL/min/1.73 sq.m. Ages 70+ = 75 mL/min/1.73 sq.m. Chronic Kidney Disease: Less than 60 mL/min/1.73 square meters End Stage Renal Disease: Less than 15 mL/min/1.73 square meters Performed By: #### T GOMEZ, GFR, CMP, PBNP #### [address] [address] GFR Non- 82 ml/min/1.73sqm Normal Counts Include [address] [facility] ([place]) Comment on above: Result Comment: GFR Population mean for , Non- Americans Ages 20-29 = 116 mL/min/1.73 sq.m. Ages 30-39 = 107 mL/min/1.73 sq.m. Ages 40-49 = 99 mL/min/1.73 sq.m. Ages 50-59 = 93 mL/min/1.73 sq.m. Ages 60-69 = 85 mL/min/1.73 sq.m. Ages 70+ = 75 mL/min/1.73 sq.m. Chronic Kidney Disease: Less than 60 mL/min/1.73 square meters End Stage Renal Disease: Less than 15 mL/min/1.73 square meters Performed By: #### T GOMEZ, GFR, CMP, PBNP #### [address] [address] .MDWon 12-23-2022 Monocyte Distribution Width 18.17 Normal 0.00-20.00 Counts Include [address] [facility] ([place]) Comment on above: Result Comment: For ED adult patients suspected of sepsis, MDW<=20.0 does not rule out sepsis or risk of sepsis Performed By: #### T GOMEZ, GFR, CMP, PBNP #### [address] [address] .NEUABSon 12-23-2022 Neutrophil, Absolute 2.8 10 3/mcL Low 2.9-6.2 [facility] ([place]) Comment on above: Performed By: #### T GOMEZ, GFR, CMP, PBNP #### [address] [address] BMPon 12-23-2022 BUN/Creatinine Ratio 6 ratio Low 7-27 [facility] ([place]) Comment on above: Performed By: #### T GOMEZ, GFR, CMP, PBNP #### [address] [address] Calcium [Mass/Vol] 8.1 mg/dL Low 8.4-10.2 [facility] ([place]) Comment on above: Performed By: #### T GOMEZ, GFR, CMP, PBNP #### [address] [address] Chloride [Moles/Vol] 102 mmol/L Normal 98-107 [facility] ([place]) Comment on above: Performed By: #### T GOMEZ, GFR, CMP, PBNP #### [address] [address] CO2 [Moles/Vol] 30 mmol/L Normal 23-31 Counts Include 234 Beds At [facility] ([place]) Comment on above: Performed By: #### T ROPHS, GFR, CMP, PBNP #### [address] [address] Creatinine [Mass/Vol] 0.71 mg/dL Normal 0.55-1.02 [facility] ([place]) Comment on above: Performed By: #### T ROPHS, GFR, CMP, PBNP #### [address] [address] Electrolyte Balance 7.0 mEq/L Normal 4.0-15.0 [facility] ([place]) Comment on above: Performed By: #### T ROPHS, GFR, CMP, PBNP #### [address] [address] Glucose [Mass/Vol] 88 mg/dL Normal 80-115 [facility] ([place]) Comment on above: Performed By: #### T ROPHS, GFR, CMP, PBNP #### [address] [address] Potassium [Moles/Vol] 4.1 mmol/L Normal 3.5-5.1 [facility] ([place]) Comment on above: Performed By: #### T ROPHS, GFR, CMP, PBNP #### [address] [address] Sodium [Moles/Vol] 139 mmol/L Normal 136-145 [facility] ([place]) Comment on above: Performed By: #### T ROPHS, GFR, CMP, PBNP #### [address] [address] Urea nitrogen [Mass/Vol] 4 mg/dL Low 7-18 Counts Include 234 [facility] At [facility] ([place]) Comment on above: Performed By: #### T ROPHS, GFR, CMP, PBNP #### [address] [address] CBCon 12-23-2022 Erythrocyte distribution width (RBC) [Ratio] 15.8 % High 11.5-14.5 Counts Include [address] [facility] ([place] Comment on above: Performed By: #### T ROPHS, GFR, CMP, PBNP #### [address] [address] Hematocrit (Bld) [Volume fraction] 39.7 % Normal 37.0-47.0 Counts Include [address] [facility] ([place] Comment on above: Performed By: #### T ROPHS, GFR, CMP, PBNP #### [address] [address] Hgb 13.2 G/dL Normal 12.0-16.0 Counts Include [address] [facility] ([place] Comment on above: Performed By: #### T ROPHS, GFR, CMP, PBNP #### [address] [address] MCH (RBC) [Entitic mass] 32.3 pg High 27.0-31.2 Counts Include [address] [facility] ([place] Comment on above: Performed By: #### T ROPHS, GFR, CMP, PBNP #### [place] [id number] MCHC 33.2 G/dL Normal 33.0-37.0 Counts Include [address] [facility] ([place] Comment on above: Performed By: #### T ROPHS, GFR, CMP, PBNP #### [address] [address] MCV (RBC) [Entitic vol] 97.3 fL High 80.0-94.0 A [facility] ([place]) Comment on above: Performed By: #### T ROPHS, GFR, CMP, PBNP #### [address] [address] Platelet 337 10 3/mcL Normal 130-400 Counts Include 234 Beds [facility] ([place] Comment on above: Performed By: #### T ROPHS, GFR, CMP, PBNP #### [address] [address] Platelet mean volume (Bld) [Entitic vol] 7.7 fL Normal 7.4-10.4 Counts Include [address] [facility] ([place] Comment on above: Performed By: #### T ROPHS, GFR, CMP, PBNP #### [address] [address] RBC 4.08 10 6/mcL Low 4.20-5.40 Counts Include 234 Beds [facility] ([place] Comment on above: Performed By: #### T GOMEZ, GFR, CMP, PBNP #### [place] [id number] [place], [place] [address] WBC 5.4 10 3/mcL Normal 4.6-10.8 Counts Include 234 Beds [facility] ([place] Comment on above: Performed By: #### T GOMEZ, GFR, CMP, PBNP #### [address] [place] [address] [place], [place] [address] LABORATORYOrdered By: Lisa Casas on 12-23-2022 Basophil, Absolute 0.1 103/mcL Invalid Interpretation Code 0.0 - 0.2 10^3/mcL AO Workflow SS Basophils/100 WBC (Bld) 1.5 % Invalid Interpretation Code 0.0 - 2.5 % AO Workflow SS Eosinophil, Absolute 0.1 103/mcL Invalid Interpretation Code 0.0 - 0.4 10^3/mcL AO Workflow SS Eosinophils/100 WBC (Bld) 1.1 % Invalid Interpretation Code 0.0 - 7.0 % AO Workflow SS Erythrocyte distribution width (RBC) [Ratio] 15.8 % Invalid Interpretation Code 11.5 - 14.5 % AO Workflow SS Hematocrit (Bld) [Volume fraction] 39.7 % Invalid Interpretation Code 37.0 - 47.0 % AO Workflow SS Hemoglobin (Bld) [Mass/Vol] 13.2 G/dL Invalid Interpretation Code 12.0 - 16.0 G/dL AO Workflow SS Lymphocyte, Absolute 2.0 103/mcL Invalid Interpretation Code 0.8 - 3.9 10^3/mcL AO Workflow SS Lymphocytes/100 WBC (Bld) 36.4 % Invalid Interpretation Code 10.0 - 50.0 % AO Workflow SS MCH (RBC) [Entitic mass] 32.3 pg Invalid Interpretation Code 27.0 - 31.2 pg AO Workflow SS MCHC 33.2 G/dL Invalid Interpretation Code 33.0 - 37.0 G/dL AO Workflow SS MCV (RBC) [Entitic vol] 97.3 fL Invalid Interpretation Code 80.0 - 94.0 fL AO Workflow SS Monocyte distribution width Auto (Bld) [Entitic vol] 18.17 Invalid Interpretation Code 0.00 - 20.00 AO Workflow SS Comment on above: Result Comment: For ED adult patients suspected of sepsis, MDW<=20.0 does not rule out sepsis or risk of sepsis Monocyte, Absolute 0.5 103/mcL Invalid Interpretation Code 0.2 - 1.0 10^3/mcL AO Workflow SS Monocytes/100 WBC (Bld) 9.3 % Invalid Interpretation Code 1.7 - 13.0 % AO Workflow SS Neutrophil, Absolute 2.8 103/mcL Invalid Interpretation Code 2.9 - 6.2 10^3/mcL AO Workflow SS Neutrophils/100 WBC (Bld) 51.7 % Invalid Interpretation Code 37.0 - 80.0 % AO Workflow SS Platelet mean volume (Bld) [Entitic vol] 7.7 fL Invalid Interpretation Code 7.4 - 10.4 fL AO Workflow SS Platelets (Bld) [#/Vol] 337 103/mcL Invalid Interpretation Code 130 - 400 10^3/mcL AO Workflow SS RBC (Bld) [#/Vol] 4.08 106/mcL Invalid Interpretation Code 4.20 - 5.40 10^6/mcL AO Workflow SS WBC (Bld) [#/Vol] 5.4 103/mcL Invalid Interpretation Code 4.6 - 10.8 10^3/mcL AO Workflow SS LABORATORYOrdered By: SYSTEM SYSTEM on 12-23-2022 Calcium [Mass/Vol] 8.1 mg/dL Invalid Interpretation Code 8.4 - 10.2 mg/dL AO ADM SS Chloride [Moles/Vol] 102 mmol/L Invalid Interpretation Code 98 - 107 mmol/L AO ADM SS CO2 [Moles/Vol] 30 mmol/L Invalid Interpretation Code 23 - 31 mmol/L AO ADM SS Creatinine [Mass/Vol] 0.71 mg/dL Invalid Interpretation Code 0.55 - 1.02 mg/dL AO ADM SS Electrolyte Balance 7.0 mEq/L Invalid Interpretation Code 4.0 - 15.0 mEq/L AO ADM SS GFR 100 ml/min/1.73sqm Invalid Interpretation Code AO Chemistry S GFR Non- 82 ml/min/1.73sqm Invalid Interpretation Code AO Chemistry S Glucose [Mass/Vol] 88 mg/dL Invalid Interpretation Code 80 - 115 mg/dL AO ADM SS Natriuretic peptide.B prohormone N-Terminal [Mass/Vol] 540 pg/mL Invalid Interpretation Code 0 - 125 pg/mL AO ADM SS Potassium [Moles/Vol] 4.1 mmol/L Invalid Interpretation Code 3.5 - 5.1 mmol/L AO ADM SS Sodium [Moles/Vol] 139 mmol/L Invalid Interpretation Code 136 - 145 mmol/L AO ADM SS Troponin I.cardiac DL <= 0.01 ng/mL [Mass/Vol] 14.1 ng/L Invalid Interpretation Code 0.0 - 51.4 ng/L AO ADM SS Urea nitrogen [Mass/Vol] 4 mg/dL Invalid Interpretation Code 7 - 18 mg/dL AO ADM SS Urea nitrogen/Creatinine [Mass ratio] 6 ratio Invalid Interpretation Code 7 - 27 ratio AO ADM SS PBNPon 12-23-2022 Natriuretic peptide B (Bld) [Mass/Vol] 540 pg/mL High 0-125 Counts Include [facility] ([place]) Comment on above: Result Comment: NT-p roBNP results of less than 300 pg/mL effectively rules out acute congestive heart failure with 99% negative predictive value. Performed By: #### T GOMEZ, GFR, CMP, PBNP #### Anthony [address] [address] TROPHSon 12-23-2022 Troponin I High Sensitivity 14.1 ng/L Normal 0.0-51.4 Counts Include [facility] ([place]) Comment on above: Performed By: #### T GOMEZ, GFR, CMP, PBNP #### [address] [address] XR CHEST 1 VIEWon 12-23-2022 XR CHEST 1 VIEW ORIGINAL EXAMINATION: ONE XRAY VIEW OF THE CHEST12/23/2022 2:32 pm CHEST ONE VIEW AP/PA COMPARISON: 10/26/2022 HISTORY: ORDERING SYSTEM PROVIDED HISTORY: Reason for Exam: SOB/cough/fever FINDINGS: The cardiomediastinal contours are normal. The aorta is atherosclerotic. There is no focal consolidation, pleural effusion, or pneumothorax. No acute osseous abnormality. There are remote right-sided rib fractures. Surgical hardware seen in the lower cervical spine. IMPRESSION: No acute radiographic findings. Interpreted by: Claude Campuzano MD Preliminary Report By: Claude Campuzano MD Electronically signed By Claude Campuzano MD Dictated Date: 12/23/2022 2:42:09 PM Prelim Date: 12/23/2022 2:43:01 PM Sign Date: 12/23/2022 2:43:01 PM Ordering Provider: JOSE ROBERTO Rivero Counts Include [facility] ([place]) Luba 11-26-2022 CN Office Visit (PULMWS ) STEVEN KOENIG ([id number]) 1955 F Date Time Provider Department 11/26/22 12:45 PM ISAURO ASHER During your visit today, we recorded the following information about you: Pulse Respiration Blood pressure Weight 98/minute 20/minute 120/84 57.6 kg Isauro Asher MD 11/26/2022 2:01 PM Signed . Respiratory [place] Note Patient name: Steven Koenig PCP: Ulises Hermosillo MD CC: Hemoptysis HPI: Steven Koenig 67 year old female current heavy smoker, over 100 pack years with PMH significant for bipolar affective disorder, h/o alcohol abuse, GERD, PAD, HLD, CAD s/p stent, severe COPD (FEV1 0.83 L 36%), oxygen dependence, previously following in [facility], new to [place]. Recent admission at [facility] in [place] for AECOPD. CXR reported as normal. Discharged with a course of doxycycline and prednisone. She states she was doing well until [...] for her coronary stent. Denies past bleeding problems. Current respiratory symptoms of dyspnea on exertion, wheezing. No chest pain or current cough. DME: [facility] DATA: PFT 05/2022: Review of spirometry shows severe obstruction without significant improvement post bronchodilators and moderate reduction in diffusing capacity Labs: Laboratory testing at [facility], normal CBC and platelet count. Negative COVID and influenza Imaging / Diagnostic Studies: DATE OF EXAM: Jul 26 2022 4:27PM [facility] 0562 - CT LUNG SCREEN WO IVCON / PROCEDURE REASON: multiple diagnoses CLINICAL HISTORY: Lung cancer LDCT screening ? [...] None. Other findings: There is severe centrilobular emphysema with diffuse bronchial wall thickening. No focal consolidation. Linear atelectasis at the lung bases. The imaged thyroid gland is unremarkable. No thoracic lymphadenopathy. There are atherosclerotic calcifications in the thoracic aorta. The thoracic aorta and main pulmonary artery are normal in caliber. The cardiac chambers are normal in size. There are triple-vessel coronary artery calcifications noting LAD stents. No pericardial [...] reviewed the images and agree with the above assessment PAST MEDICAL HISTORY Diagnosis Date Acute pancreatitis 2010 Anisha Cruz Alcohol use disorder 01/18/2016 [facility] Anxiety 12/14/2015 Bipolar affective disorder, currently active ([facility]) 01/18/2016 Dr[facility] Chronic bronchitis ([facility]) 07/26/2016 Closed skull fracture ([facility]) 1994 [facility], [facility] Coronary artery disease DDD (degenerative disc disease), cervical Endometriosis 2007 Essential hypertension 12/14/2015 GERD (gastroesophageal reflux disease) 03/13/2019 History of colon polyps History of gastric ulcer 12/14/2015 HLD (hyperlipidemia) Injury of left facial nerve 1994 PAD (peripheral artery disease) ([facility]) 09/28/2019 Recurrent major depression in partial remission ([facility]) 12/14/2015 S/P drug eluting coronary stent placement 08/25/2021 LAD and Dg2 Spinal stenosis ALLERGIES No Known Allergies albuterol HFA (VENTOLIN HFA) 90 mcg/actuation inhaler Inhale 2 Puffs as instructed every 6 hours as needed for wheezing/shortness of breath. dmagdaqfuya-tynnqhvce-d ilanter (TRELEGY ELLIPTA) 200-62.5-25 mcg inhalation powder Inhale 1 Puff as instructed once daily. predniSONE (DELTASONE) 10 mg tablet Take two daily for 5 days then one daily for 10 days nystatin (MYCOSTATIN) 100,000 unit/mL suspension Take 5 mL by mouth four times daily. 1tsp swish in mouth for several minutes, then swallow (or expectorate) 4 times daily until gone. (Patient not taking: Reported on 10/02/2022) acetaminophen (TYLENOL EXTRA STRENGTH) 500 mg tablet Take 1 tablet by mouth every 8 hours (more content not included)... [facility] [facility] Telephone (INTMWS) STEVEN KOENIG ([id number]) 1955 F Date Time Provider Department 11/20/22 ULISES HERMOSILLO INTMWS During your visit today, we recorded the following information about you: Christina Diamondadrianne Greco LPN 11/20/2022 10:40 AM Signed Pt called and reports she went to [facility] ER last week for difficulty breathing and COPD. At ER pt was given breathing treatments, Prednisone and ATB. Sent home. Next next started coughing up larges amounts of blood with clots which lasted 24 hours and then just stopped and she has not had this happened since. Pt did not set up ER FU because she was feeling better. Pt was talking with her son and they are both concern where does she go from here. Pt not certain whether to schedule ER FU or does she need to FU with her other specialists. *Pt reports has left upper chest pain that comes and goes, has been going on for a few months *on oxygen since March 30, 2022 *smoking less than a pack per day (was smoking 2 to 3 pack per day) Please advise pt. Christina Hermosillo MD 11/20/2022 1:17 PM Signed ASSESSMENT/PLAN: 1. History of hemoptysis - ICD9: V12.69, ICD10: Z87.898 Schedule follow up with pulmonary medicine, last seen by Dr. Kasper 06/06/22. 6 month follow up was recommended (not scheduled). Advise ER for recurrent hemoptysis. MD Irena Jameson LPN 11/20/2022 1:29 PM Signed Patient notified, verbalized understanding. Will wait for call from PSS to schedule. Irena Bailey 11/20/2022 1:46 PM Signed Spoke to pt and scheduled appt with Dr. Asher on 11/26/2022 at 12:45 PM Veda Bailey November 20, [...] (or expectorate) 4 times daily until gone. - acetaminophen (TYLENOL EXTRA STRENGTH) 500 mg tablet Take 1 tablet by mouth every 8 hours as needed for pain. - venlafaxine ER (EFFEXOR XR) 150 mg 24 hr capsule Take 1 capsule by mouth once daily. Take with 75 mg capsule to =225 mg - atorvastatin (LIPITOR) 80 [...] for anxiety for up to 90 days. - venlafaxine ER (EFFEXOR XR) 75 mg 24 hr capsule Take 1 capsule by mouth once daily. Take with 150 mg capsule to =150 mg - triamcinolone acetonide (KENALOG) 0.1 % cream Apply 1 application to affected area three times daily. Apply sparingly to area for rash/itching. - traZODone (DESYREL) 100 mg tablet Take 2 tablets by mouth daily at bedtime. - xhxdvedbpxr-ozaienmpx-u ilanter (TRELEGY ELLIPTA) 200-62.5-25 mcg inhalation powder Inhale 1 Puff as instructed once daily. - albuterol HFA (VENTOLIN HFA) 90 mcg/actuation inhaler Inhale 2 Puffs as instructed every 6 hours as needed for wheezing/shortness of breath. - amLODIPine (NORVASC) 10 [...] [I10] 12/14/2015 Recurrent major depression in partial remission*12/14/2015 Anxiety [F41.9] 12/14/2015 01/06/2021 Bipolar affective disorder, currently active (H*01/18/2016 History of alcohol abuse [F10.11] 01/18/2016 Chronic bronchitis (HCC) [J42] 07/26/2016 Hyperkalemia [E87.5] 07/27/2016 11/27/2018 Polycythemia [D75.1] 07/27/2016 11/27/2018 Spinal stenosis, lumbar region without neurogen*12/01/2018 Radiculopathy, lumbar region [M54.16] 12/01/2018 Smoker [F17.200] 03/13/2019 GERD (gastroesophageal reflux disease) [K21.9] 03/13/2019 Primary osteoarthritis of right hip [M16.11] 03/13/2019 10/06/2019 History of total right hip arthroplasty [Z96.64*03/25/2019 07/07/2020 Seasonal allergies [J30.2] 05/04/2019 Preop cardiovascular exam [Z01.810] 09/28/2019 10/06/2019 Precordial pain, short lived, 3-5 minutes, none*09/28/2019 07/07/2020 PAD (peripheral artery disease) ([facility]) [I73.9] 09/28/2019 Anxiety and depression (more content not included)... Normal [facility] .Auto Diffon 10-26-2022 Basophil, Absolute 0.1 10 3/mcL Normal 0.0-0.2 [facility] ([place]) Comment on above: Performed By: #### T GOMEZ, GFR, CMP, PBNP #### [address] [address] Basophils/100 WBC (Bld) 1.6 % Normal 0.0-2.5 A [facility] ([place]) Comment on above: Performed By: #### T GOMEZ, GFR, CMP, PBNP #### [address] [address] Eosinophil, Absolute 0.2 10 3/mcL Normal 0.0-0.4 [facility] ([place]) Comment on above: Performed By: #### T GOMEZ, GFR, CMP, PBNP #### [address] [address] Eosinophils/100 WBC (Bld) 2.3 % Normal 0.0-7.0 Counts Include [facility] ([place]) Comment on above: Performed By: #### T GOMEZ, GFR, CMP, PBNP #### [address] [address] Lymphocyte, Absolute 2.1 10 3/mcL Normal 0.8-3.9 [facility] ([place]) Comment on above: Performed By: #### T GOMEZ, GFR, CMP, PBNP #### [address] [address] Lymphocytes/100 WBC (Bld) 29.5 % Normal 10.0-50.0 Counts Include [facility] ([place]) Comment on above: Performed By: #### T ROPHS, GFR, CMP, PBNP #### [address] [address] Monocyte, Absolute 0.6 10 3/mcL Normal 0.2-1.0 [facility] ([place]) Comment on above: Performed By: #### T ROPHS, GFR, CMP, PBNP #### [address] [address] Monocytes/100 WBC (Bld) 8.6 % Normal 1.7-13.0 A [facility] ([place]) Comment on above: Performed By: #### T ROPHS, GFR, CMP, PBNP #### [address] [address] Neutrophils/100 WBC (Bld) 58.0 % Normal 37.0-80.0 Counts Include [facility] ([place]) Comment on above: Performed By: #### T ROPMARILEE, GFR, CMP, PBNP #### [address] [address] .GFRon 10-26-2022 GFR 100 ml/min/1.73sqm Normal Counts Include [facility] ([place]) Comment on above: Result Comment: GFR Population mean for , Non- Americans Ages 20-29 = 116 mL/min/1.73 sq.m. Ages 30-39 = 107 mL/min/1.73 sq.m. Ages 40-49 = 99 mL/min/1.73 sq.m. Ages 50-59 = 93 mL/min/1.73 sq.m. Ages 60-69 = 85 mL/min/1.73 sq.m. Ages 70+ = 75 mL/min/1.73 sq.m. Chronic Kidney Disease: Less than 60 mL/min/1.73 square meters End Stage Renal Disease: Less than 15 mL/min/1.73 square meters Performed By: #### T ROPHS, GFR, CMP, PBNP #### [address] [address] GFR Non- 82 ml/min/1.73sqm Normal Counts Include [facility] ([place]) Comment on above: Result Comment: GFR Population mean for , Non- Americans Ages 20-29 = 116 mL/min/1.73 sq.m. Ages 30-39 = 107 mL/min/1.73 sq.m. Ages 40-49 = 99 mL/min/1.73 sq.m. Ages 50-59 = 93 mL/min/1.73 sq.m. Ages 60-69 = 85 mL/min/1.73 sq.m. Ages 70+ = 75 mL/min/1.73 sq.m. Chronic Kidney Disease: Less than 60 mL/min/1.73 square meters End Stage Renal Disease: Less than 15 mL/min/1.73 square meters Performed By: #### T GOMEZ, GFR, CMP, PBNP #### [address] [address] .MDWon 10-26-2022 Monocyte Distribution Width 17.60 Normal 0.00-20.00 Counts Include [facility] ([place]) Comment on above: Result Comment: For ED adult patients suspected of sepsis, MDW<=20.0 does not rule out sepsis or risk of sepsis Performed By: #### T ARIELLEHS, GFR, CMP, PBNP #### [address] [address] .NEUABSon 10-26-2022 Neutrophil, Absolute 4.1 10 3/mcL Normal 2.9-6.2 [facility] ([place]) Comment on above: Performed By: #### T ROPHS, GFR, CMP, PBNP #### [address] [address] CBCon 10-26-2022 Erythrocyte distribution width (RBC) [Ratio] 17.6 % High 11.5-14.5 Counts Include [address] [facility] ([place] Comment on above: Performed By: #### T ROPHS, GFR, CMP, PBNP #### [address] [address] Hematocrit (Bld) [Volume fraction] 39.9 % Normal 37.0-47.0 Counts Include [facility] ([place] Comment on above: Performed By: #### T GOMEZ, GFR, CMP, PBNP #### [address] [address] Hgb 13.3 G/dL Normal 12.0-16.0 Counts Include [address] [facility] ([place]) Comment on above: Performed By: #### T ARIELLEHS, GFR, CMP, PBNP #### [address] [address] MCH (RBC) [Entitic mass] 32.2 pg High 27.0-31.2 Counts Include [facility] ([place] Comment on above: Performed By: #### T GOMEZ, GFR, CMP, PBNP #### [place] [address] MCHC 33.4 G/dL Normal 33.0-37.0 Counts Include [address] [facility] ([place] Comment on above: Performed By: #### T ARIELLEHS, GFR, CMP, PBNP #### [address] [address] MCV (RBC) [Entitic vol] 96.4 fL High 80.0-94.0 A [facility] ([place]) Comment on above: Performed By: #### T GOMEZ, GFR, CMP, PBNP #### [address] [address] Platelet 387 10 3/mcL Normal 130-400 Counts Include [facility] ([place]) Comment on above: Performed By: #### T ROPHS, GFR, CMP, PBNP #### [address] [address] Platelet mean volume (Bld) [Entitic vol] 7.1 fL Low 7.4-10.4 Counts Include [address] [facility] ([place] Comment on above: Performed By: #### T ROPHS, GFR, CMP, PBNP #### [address] [address] RBC 4.14 10 6/mcL Low 4.20-5.40 Counts Include [address] [facility] ([place] Comment on above: Performed By: #### T ROPHS, GFR, CMP, PBNP #### [address] [address] WBC 7.1 10 3/mcL Normal 4.6-10.8 Counts Include [address] [facility] ([place] Comment on above: Performed By: #### T ROPHS, GFR, CMP, PBNP #### [address] [address] CMPon 10-26-2022 Albumin Level 3.3 G/dL Low 3.4-4.8 Counts Include [address] [facility] ([place] Comment on above: Performed By: #### T GOMEZ, GFR, CMP, PBNP #### [address] [address] Albumin/Globulin [Mass ratio] 0.9 {ratio} Low 1.1-2.5 Counts Include [address] [facility] ([place] Comment on above: Performed By: #### T GOMEZ, GFR, CMP, PBNP #### [address] [address] ALP [Catalytic activity/Vol] 83 U/L Normal 40-135 Counts Include [facility] ([place] Comment on above: Performed By: #### T GOMEZ, GFR, CMP, PBNP #### [address] [address] ALT [Catalytic activity/Vol] 29 U/L Normal 14-59 Counts Include [address] [facility] ([place] Comment on above: Performed By: #### T GOMEZ, GFR, CMP, PBNP #### [address] [address] AST [Catalytic activity/Vol] 21 U/L Normal 10-40 Counts Include [address] [facility] ([place] Comment on above: Performed By: #### T ROPHS, GFR, CMP, PBNP #### [address] [address] Bili Total 0.1 mg/dL Low 0.2-1.0 Counts Include [address] [facility] ([place]) Comment on above: Result Comment: Use of this assay is not recommended for patients undergoing treatment with eltrombopag due to the potential for falsely elevated results. Performed By: #### T ROPHS, GFR, CMP, PBNP #### [place] [id number] BUN/Creatinine Ratio 14 ratio Normal 7-27 [facility] ([place]) Comment on above: Performed By: #### T ROPHS, GFR, CMP, PBNP #### [place] [id number] Calcium [Mass/Vol] 8.5 mg/dL Normal 8.4-10.2 [facility] ([place]) Comment on above: Performed By: #### T ROPHS, GFR, CMP, PBNP #### [place] [address] Chloride [Moles/Vol] 104 mmol/L Normal 98-107 [facility] ([place]) Comment on above: Performed By: #### T ROPHS, GFR, CMP, PBNP #### [place] [address] CO2 [Moles/Vol] 28 mmol/L Normal 23-31 Counts Include [facility] ([place] Comment on above: Performed By: #### T ROPHS, GFR, CMP, PBNP #### [place] [address] Creatinine [Mass/Vol] 0.71 mg/dL Normal 0.55-1.02 [facility] ([place]) Comment on above: Performed By: #### T ROPHS, GFR, CMP, PBNP #### [address] [address] Electrolyte Balance 8.0 mEq/L Normal 4.0-15.0 [facility] ([place]) Comment on above: Performed By: #### T ROPHS, GFR, CMP, PBNP #### [place] [address] Globulin 3.5 G/dL Normal Counts Include [address] [facility] ([place] Comment on above: Performed By: #### T ROPHS, GFR, CMP, PBNP #### [address] [address] Glucose [Mass/Vol] 88 mg/dL Normal 80-115 [facility] ([place]) Comment on above: Performed By: #### T GOMEZ, GFR, CMP, PBNP #### [address] [address] Potassium [Moles/Vol] 4.5 mmol/L Normal 3.5-5.1 [facility] ([place]) Comment on above: Performed By: #### T GOMEZ, GFR, CMP, PBNP #### [address] [address] Sodium [Moles/Vol] 140 mmol/L Normal 136-145 [facility] ([place]) Comment on above: Performed By: #### T GOMEZ, GFR, CMP, PBNP #### [address] [address] Total Protein 6.8 G/dL Normal 6.4-8.2 Counts Include [address] [facility] ([place] Comment on above: Performed By: #### T GOMEZ, GFR, CMP, PBNP #### [address] [address] Urea nitrogen [Mass/Vol] 10 mg/dL Normal 7-18 Counts Include [address] [facility] ([place] Comment on above: Performed By: #### T GOMEZ, GFR, CMP, PBNP #### [address] [address] [id number] 10-26-2022 SARS-CoV-2 (COVID-19) RNA IVANA+probe Ql (Unsp spec) Negative Normal Negative Counts Include [address] [facility] ([place] Comment on above: Performed By: #### T ROPHS, GFR, CMP, PBNP #### [address] [address] SARS-CoV-2 (COVID-19) RNA IVANA+probe Ql (Unsp spec) Normal Counts Include [address] [facility] ([place]) Comment on above: Result Comment: Nega tive results do not preclude SARS-CoV-2 infection and should not be used as the sole basis for patient management decisions. Negative results must be combined with clinical observations, patient history, and epidemiological information. There is a risk of false negative values resulting from improperly collected, transported, or handled specimens. There is a risk of false negative values [...] Improvement Amendments of 1988 (CLIA), 42 U.S.C. ?263a, to perform moderate and high complexity tests. COVID-19 Int Performed By: #### T GOMEZ, GFR, CMP, PBNP #### [address] [address] FLURSVon 10-26-2022 Flu A PCR (AO) Negative Normal Negative Counts Include [address] [facility] ([place]) Comment on above: Result Comment: Posi tive Results: Positive Flu A/B or RSV for by PCR. Positive test results do not rule out bacterial infection or co-infection with other pathogens. Test results should be interpreted in conjunction with other laboratory and clinical data. Negative Results: Negative for by PCR. Negative test results do not preclude influenza virus or RSV infection and should not be used as the sole basis for diagnosis, treatment, or other management decisions. There is a risk of false negative RSV results when at low concentration and in the presence of co-infection with high concentration of influenza A. Invalid Results: An Invalid result (INV) was obtained. The test was repeated with similar results. REPEAT COLLECTION AND TESTING IS RECOMMENDED. The [employer] Flu A/B & RSV Assay is a real-time polymerase chain reaction (PCR) based qualitative in vitro diagnostic test for the direct detection and differentiation of influenza A virus, influenza B virus, and respiratory syncytial virus (RSV) nucleic acid in nasopharyngeal swab (HOT METAL CHARGER) specimens from patients with signs and symptoms of respiratory infection in conjunction with clinical and laboratory findings. The test is intended for use as an aid in the differential diagnosis of influenza A virus, influenza B virus, and RSV in humans and is not intended to detect influenza C. Performed By: #### T GOMEZ, GFR, CMP, PBNP #### [place] [address] [place], [place] [address] Flu B PCR (AO) Negative Normal Negative Counts Include [address] [facility] ([place]) Comment on above: Result Comment: Posi tive Results: Positive Flu A/B or RSV for by PCR. Positive test results do not rule out bacterial infection or co-infection with other pathogens. Test results should be interpreted in conjunction with other laboratory and clinical data. Negative Results: Negative for by PCR. Negative test results do not preclude influenza virus or RSV infection and should not be used as the sole basis for diagnosis, treatment, or other management decisions. There is a risk of false negative RSV results when at low concentration and in the presence of co-infection with high concentration of influenza A. Invalid Results: An Invalid result (INV) was obtained. The test was repeated with similar results. REPEAT COLLECTION AND TESTING IS RECOMMENDED. The Jigsaw24 Flu A/B & RSV Assay is a real-time polymerase chain reaction (PCR) based qualitative in vitro diagnostic test for the direct detection and differentiation of influenza A virus, influenza B virus, and respiratory syncytial virus (RSV) nucleic acid in nasopharyngeal swab (HOT METAL CHARGER) specimens from patients with signs and symptoms of respiratory infection in conjunction with clinical and laboratory findings. The test is intended for use as an aid in the differential diagnosis of influenza A virus, influenza B virus, and RSV in humans and is not intended to detect influenza C. Performed By: #### T GOMEZ, GFR, CMP, PBNP #### [address] [address] RSV PCR (AO) Negative Normal Negative Counts Include [address] [facility] ([place]) Comment on above: Result Comment: Posi tive Results: Positive Flu A/B or RSV for by PCR. Positive test results do not rule out bacterial infection or co-infection with other pathogens. Test results should be interpreted in conjunction with other laboratory and clinical data. Negative Results: Negative for by PCR. Negative test results do not preclude influenza virus or RSV infection and should not be used as the sole basis for diagnosis, treatment, or other management decisions. There is a risk of false negative RSV results when at low concentration and in the presence of co-infection with high concentration of influenza A. Invalid Results: An Invalid result (INV) was obtained. The test was repeated with similar results. REPEAT COLLECTION AND TESTING IS RECOMMENDED. The Rufus Flu A/B & RSV Assay is a real-time polymerase chain reaction (PCR) based qualitative in vitro diagnostic test for the direct detection and differentiation of influenza A virus, influenza B virus, and respiratory syncytial virus (RSV) nucleic acid in nasopharyngeal swab (HOT METAL CHARGER) specimens from patients with signs and symptoms of respiratory infection in conjunction with clinical and laboratory findings. The test is intended for use as an aid in the differential diagnosis of influenza A virus, influenza B virus, and RSV in humans and is not intended to detect influenza C. Performed By: #### T ROPHS, GFR, CMP, PBNP #### [place] [id number] [place] [address] LABORATORYOrdered By: Jensen Fay on 10-26-2022 FLUAV RNA IVANA+probe Ql (Upper resp) Negative (10/26/22 5:52 PM) Invalid Interpretation Code Negative AO Auto Urine SS FLUBV RNA IVANA+probe Ql (Upper resp) Negative (10/26/22 5:52 PM) Invalid Interpretation Code Negative AO Auto Urine SS RSV RNA IVANA+probe Ql (Upper resp) Negative (10/26/22 5:52 PM) Invalid Interpretation Code Negative AO Auto Urine SS SARS-CoV-2 (COVID-19) RNA IVANA+probe Ql (Resp) Negative results do not preclude SARS-CoV-2 infection and should [...] for amplification.RUFUS SARS-CoV-2 Assay is a Real-Time reverse-transcriptase polymerase [...] to perform moderate and high complexity tests. Invalid Interpretation Code AO Auto Urine SS Amphetamines Screen Ql (U) Negative (10/26/22 5:34 PM) Invalid Interpretation Code AO Manual Urine SS Appearance (U) Clear (10/26/22 5:34 PM) Invalid Interpretation Code Clear AO Auto Urine SS Barbiturates Screen Ql (U) Negative (10/26/22 5:34 PM) Invalid Interpretation Code AO Manual Urine SS Basophil, Absolute 0.1 103/mcL Invalid Interpretation Code 0.0 - 0.2 10^3/mcL AO Workflow SS Basophils/100 WBC (Bld) 1.6 % Invalid Interpretation Code 0.0 - 2.5 % AO Workflow SS Benzodiazepines Ql (U) Negative (10/26/22 5:34 PM) Invalid Interpretation Code AO Manual Urine SS Benzoylecgonine Screen Ql (U) Negative (10/26/22 5:34 PM) Invalid Interpretation Code AO Manual Urine SS Bilirubin Ql (U) Negative (10/26/22 5:34 PM) Invalid Interpretation Code Negative AO Auto Urine SS Cannabinoids tested Screen Nom (U) Negative (10/26/22 5:34 PM) Invalid Interpretation Code AO Manual Urine SS Color (U) Yellow (10/26/22 5:34 PM) Invalid Interpretation Code AO Auto Urine SS Eosinophil, Absolute 0.2 103/mcL Invalid Interpretation Code 0.0 - 0.4 10^3/mcL AO Workflow SS Eosinophils/100 WBC (Bld) 2.3 % Invalid Interpretation Code 0.0 - 7.0 % AO Workflow SS Erythrocyte distribution width (RBC) [Ratio] 17.6 % Invalid Interpretation Code 11.5 - 14.5 % AO Workflow SS Glucose Test strip (U) [Mass/Vol] Negative Invalid Interpretation Code Negativemg/ dL AO Auto Urine SS Hematocrit (Bld) [Volume fraction] 39.9 % Invalid Interpretation Code 37.0 - 47.0 % AO Workflow SS Hemoglobin (Bld) [Mass/Vol] 13.3 G/dL Invalid Interpretation Code 12.0 - 16.0 G/dL AO Workflow SS Hemoglobin Auto test strip (U) [Mass/Vol] Negative (10/26/22 5:34 PM) Invalid Interpretation Code Negative AO Auto Urine SS Ketones Ql (U) Negative Invalid Interpretation Code Negativemg/ dL AO Auto Urine SS Lymphocyte, Absolute 2.1 103/mcL Invalid Interpretation Code 0.8 - 3.9 10^3/mcL AO Workflow SS Lymphocytes/100 WBC (Bld) 29.5 % Invalid Interpretation Code 10.0 - 50.0 % AO Workflow SS MCH (RBC) [Entitic mass] 32.2 pg Invalid Interpretation Code 27.0 - 31.2 pg AO Workflow SS MCHC 33.4 G/dL Invalid Interpretation Code 33.0 - 37.0 G/dL AO Workflow SS MCV (RBC) [Entitic vol] 96.4 fL Invalid Interpretation Code 80.0 - 94.0 fL AO Workflow SS Methadone Screen Ql (U) Negative (10/26/22 5:34 PM) Invalid Interpretation Code AO Manual Urine SS Monocyte distribution width Auto (Bld) [Entitic vol] 17.60 Invalid Interpretation Code 0.00 - 20.00 AO Workflow SS Comment on above: Result Comment: For ED adult patients suspected of sepsis, MDW<=20.0 does not rule out sepsis or risk of sepsis Monocyte, Absolute 0.6 103/mcL Invalid Interpretation Code 0.2 - 1.0 10^3/mcL AO Workflow SS Monocytes/100 WBC (Bld) 8.6 % Invalid Interpretation Code 1.7 - 13.0 % AO Workflow SS Neutrophil, Absolute 4.1 103/mcL Invalid Interpretation Code 2.9 - 6.2 10^3/mcL AO Workflow SS Neutrophils/100 WBC (Bld) 58.0 % Invalid Interpretation Code 37.0 - 80.0 % AO Workflow SS Opiates Screen Ql (U) Negative (10/26/22 5:34 PM) Invalid Interpretation Code AO Manual Urine SS Phencyclidine Ql (U) Negative (10/26/22 5:34 PM) Invalid Interpretation Code AO Manual Urine SS Platelet mean volume (Bld) [Entitic vol] 7.1 fL Invalid Interpretation Code 7.4 - 10.4 fL AO Workflow SS Platelets (Bld) [#/Vol] 387 103/mcL Invalid Interpretation Code 130 - 400 10^3/mcL AO Workflow SS RBC (Bld) [#/Vol] 4.14 106/mcL Invalid Interpretation Code 4.20 - 5.40 10^6/mcL AO Workflow SS Tricyclic antidepressants Screen Ql (U) Negative (10/26/22 5:34 PM) Invalid Interpretation Code AO Manual Urine SS UA Leuk Est Negative (10/26/22 5:34 PM) Invalid Interpretation Code Negative AO Auto Urine SS UA Nitrite Negative (10/26/22 5:34 PM) Invalid Interpretation Code Negative AO Auto Urine SS UA pH 5.5 (10/26/22 5:34 PM) Invalid Interpretation Code 5.0 - 8.0 AO Auto Urine SS UA Protein Negative Invalid Interpretation Code Negativemg/ dL AO Auto Urine SS UA Spec Grav <=1.005 *ABN* (10/26/22 5:34 PM) Invalid Interpretation Code 1.015-1.025 AO Auto Urine SS UA Specimen Type Not Given (10/26/22 5:34 PM) Invalid Interpretation Code AO Auto Urine SS UA Urobilinogen 0.2 E.U./dL Invalid Interpretation Code 0.2-1.0E.U. /dL AO Auto Urine SS WBC (Bld) [#/Vol] 7.1 103/mcL Invalid Interpretation Code 4.6 - 10.8 10^3/mcL AO Workflow SS LABORATORYOrdered By: SYSTEM SYSTEM on 10-26-2022 Albumin BCP dye [Mass/Vol] 3.3 G/dL Invalid Interpretation Code 3.4 - 4.8 G/dL AO ADM SS Albumin/Globulin [Mass ratio] 0.9 {ratio} Invalid Interpretation Code 1.1 - 2.5 ratio AO ADM SS ALP [Catalytic activity/Vol] 83 U/L Invalid Interpretation Code 40 - 135 U/L AO ADM SS ALT With P-5'-P [Catalytic activity/Vol] 29 U/L Invalid Interpretation Code 14 - 59 U/L AO ADM SS AST With P-5'-P [Catalytic activity/Vol] 21 U/L Invalid Interpretation Code 10 - 40 U/L AO ADM SS Bilirubin [Mass/Vol] 0.1 mg/dL Invalid Interpretation Code 0.2 - 1.0 mg/dL AO ADM SS Calcium [Mass/Vol] 8.5 mg/dL Invalid Interpretation Code 8.4 - 10.2 mg/dL AO ADM SS Chloride [Moles/Vol] 104 mmol/L Invalid Interpretation Code 98 - 107 mmol/L AO ADM SS CO2 [Moles/Vol] 28 mmol/L Invalid Interpretation Code 23 - 31 mmol/L AO ADM SS Creatinine [Mass/Vol] 0.71 mg/dL Invalid Interpretation Code 0.55 - 1.02 mg/dL AO ADM SS Electrolyte Balance 8.0 mEq/L Invalid Interpretation Code 4.0 - 15.0 mEq/L AO ADM SS GFR 100 ml/min/1.73sqm Invalid Interpretation Code AO Chemistry S GFR Non- 82 ml/min/1.73sqm Invalid Interpretation Code AO Chemistry S Globulin 3.5 G/dL Invalid Interpretation Code AO ADM SS Glucose [Mass/Vol] 88 mg/dL Invalid Interpretation Code 80 - 115 mg/dL AO ADM SS Natriuretic peptide.B prohormone N-Terminal [Mass/Vol] 521 pg/mL Invalid Interpretation Code 0 - 125 pg/mL AO ADM SS Potassium [Moles/Vol] 4.5 mmol/L Invalid Interpretation Code 3.5 - 5.1 mmol/L AO ADM SS Protein [Mass/Vol] 6.8 G/dL Invalid Interpretation Code 6.4 - 8.2 G/dL AO ADM SS Sodium [Moles/Vol] 140 mmol/L Invalid Interpretation Code 136 - 145 mmol/L AO ADM SS Troponin I.cardiac DL <= 0.01 ng/mL [Mass/Vol] 15.6 ng/L Invalid Interpretation Code 0.0 - 51.4 ng/L AO ADM SS Urea nitrogen [Mass/Vol] 10 mg/dL Invalid Interpretation Code 7 - 18 mg/dL AO ADM SS Urea nitrogen/Creatinine [Mass ratio] 14 ratio Invalid Interpretation Code 7 - 27 ratio AO ADM SS PBNPon 10-26-2022 Natriuretic peptide B (Bld) [Mass/Vol] 521 pg/mL High 0-125 Counts Include [address] [facility] ([place]) Comment on above: Result Comment: NT-p roBNP results of less than 300 pg/mL effectively rules out acute congestive heart failure with 99% negative predictive value. Performed By: #### T ROPHS, GFR, CMP, PBNP #### [address] [address] TOXSCon 10-26-2022 U Ampheta (AO) Negative Normal Counts Include [address] [facility] ([place]) Comment on above: Performed By: #### U A, TOXSC #### [address] [address] U Nanci (AO) Negative Normal Counts Include [address] [facility] ([place]) Comment on above: Performed By: #### U A, TOXSC #### [address] [address] U Heron (AO) Negative Normal Counts Include [address] [facility] ([place]) Comment on above: Performed By: #### U A, TOXSC #### [address] [address] U Cannab (AO) Negative [facility] ([place]) Comment on above: Performed By: #### U A, TOXSC #### [address] [address] U Cocaine (AO) Negative [facility] ([place]) Comment on above: Performed By: #### U A, TOXSC #### [address] [address] U Methadone (AO) Negative [facility] ([place]) Comment on above: Performed By: #### U A, TOXSC #### [address] [address] U PCP (AO) Negative [facility] ([place]) Comment on above: Performed By: #### U A, TOXSC #### [address] [address] U TCA (AO) Negative [facility] ([place]) Comment on above: Performed By: #### U A, TOXSC #### [address] [address] Urine Opiates (AO) Negative [facility] ([place]) Comment on above: Performed By: #### U A, TOXSC #### [address] [address] TROPHSon 10-26-2022 Troponin I High Sensitivity 15.6 ng/L Normal 0.0-51.4 Counts Include [address] [facility] ([place]) Comment on above: Performed By: #### T ROPHS, GFR, CMP, PBNP #### [address] [address] UAon 10-26-2022 Color (U) Yellow [facility] ([place]) Comment on above: Performed By: #### U A, TOXSC #### [address] [address] Glucose (U) [Mass/Vol] Negative Normal Negative [facility] ([place]) Comment on above: Performed By: #### U A, TOXSC #### [address] [address] Ketones Ql (U) Negative Normal Negative Counts Include [address] [facility] ([place]) Comment on above: Performed By: #### U A, TOXSC #### [address] [address] UA Appear Clear Normal Clear Counts Include [address] [facility] ([place]) Comment on above: Performed By: #### U A, TOXSC #### [address] [address] UA Blood Negative Normal Negative Counts Include [address] [facility] ([place]) Comment on above: Performed By: #### U A, TOXSC #### [place] [address] UA Leuk Est Negative Normal Negative Counts Include [address] [facility] ([place] Comment on above: Performed By: #### U A, TOXSC #### [place] [address] UA Nitrite Negative Normal Negative Counts Include [address] [facility] ([place]) Comment on above: Performed By: #### U A, TOXSC #### [place] [address] UA pH 5.5 Normal 5.0 - 8.0 Counts Include [address] [facility] ([place]) Comment on above: Performed By: #### U A, TOXSC #### [place] [address] UA Protein Negative Normal Negative Counts Include [address] [facility] ([place] Comment on above: Performed By: #### U A, TOXSC #### [address] [address] UA Spec Grav <=1.005 Abnormal 1.015-1.025 Counts Include [address] [facility] ([place]) Comment on above: Performed By: #### U A, TOXSC #### [place] [address] UA Specimen Type Not Given Normal Counts Include [address] [facility] ([place]) Comment on above: Performed By: #### U A, TOXSC #### [place] [address] [place], [place] [address] UA Urobilinogen 0.2 E.U./dL Normal 0.2-1.0 Counts Include [address] [facility] ([place]) Comment on above: Performed By: #### U A, TOXSC #### [facility] [address] [place], [place] [address] Urobilinogen (U) [Mass/Vol] Negative Normal Negative Counts Include [address] [facility] ([place]) Comment on above: Performed By: #### U A, TOXSC #### [facility] [address] [place], [place] [address] XR CHEST 1 VIEWon 10-26-2022 XR CHEST 1 VIEW ORIGINAL EXAMINATION: ONE XRAY VIEW OF THE CHEST10/26/2022 6:34 pm CHEST ONE VIEW AP/PA COMPARISON: 05/02/2022 chest x-ray and 08/05/2012 CT scan. HISTORY: ORDERING SYSTEM PROVIDED HISTORY: Reason for Exam: cough, sob FINDINGS: Heart size and vascularity are within normal limits. The lungs are clear of focal consolidation. No effusion, pneumothorax, or acute osseous abnormality. Old right-sided posterior 9th and 10th rib fractures are stable. IMPRESSION: No radiographic evidence of acute cardiopulmonary process. Interpreted by: Keyla Mckeon MD Preliminary Report By: Keyla Mckeon MD Electronically signed By Keyla Mckeon MD Dictated Date: 10/26/2022 7:05:14 PM Prelim Date: 10/26/2022 7:06:29 PM Sign Date: 10/26/2022 7:06:29 PM Ordering Provider: BRIAN Rivero [facility]) CT LUNG SCREEN WO IVCONon CT LUNG SCREEN WO IVCON * * *Final Repor t* * * DATE OF EXAM: Jul 26 2022 4:27PM [facility] 0562 - CT LUNG SCREEN WO IVCON / PROCEDURE REASON: multiple diagnoses * * * * Physician Interpretation * * * * EXAMINATION: CHEST CT WITHOUT CONTRAST (LOW-DOSE CT LUNG CANCER SCREENING PROTOCOL) CLINICAL HISTORY: Lung cancer LDCT screening ? absence of signs or symptoms of lung cancer. Nicotine dependence (cigarettes). Subsequent (annual) Technique: Spiral CT acquisition of the chest from the thoracic inlet to the upper abdomen without contrast. MQ: [id number] Patient characteristics: * Afea-mr-Miint: 1955; Age at exam: 67 years * Gender: Female * Lung Disease: Asymptomatic (no signs or symptoms of lung disease) * Number of Pack Years: 55 * Current smoker (=0) or Number of Years since Quit: 0 * Ordering provider and NPI: NICOLE KIMIMARCELLE KENNY [id number] * Interpreting radiologist and NPI: Ervin [id number] Exam acquisition parameters: * Exam Date: 07/26/2022 4:27 PM * Site: [facility] * * CT System Modeling Analyst: [employer] * CT System Model: Dual Source * [...] None. Other findings: There is severe centrilobular emphysema with diffuse bronchial wall thickening. No focal consolidation. Linear atelectasis at the lung bases. The imaged thyroid gland is unremarkable. No thoracic lymphadenopathy. There are atherosclerotic calcifications in the thoracic aorta. The thoracic aorta and main pulmonary artery are normal in caliber. The cardiac chambers are normal in size. There are triple-vessel coronary artery calcifications noting LAD stents. No pericardial effusion or pericardial thickening. The imaged upper abdomen is stable without acute abnormality. Emphysema: Severe (50-75%), centrilobular, diffuse Coronary Artery Calcifications: Circumflex mild; Left Anterior Descending stents in place; Right Coronary mild Endoscopy Tech (topogram) images: No additional findings. IMPRESSION: LungRADS category: 2 LungRADS modifier: None LungRADS 0 reason: n/a Recommendations: Continue annual screening with LDCT in 12 months. Other actionable findings: ====== Reference: [employer]. Lung CT Screening Reporting and Data System (Lung-RADS). Available at: http://www.acr.org/Qual ity-Safety/Resources/Shaina RutledgeS 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: SRAVANI Transcribe Date/Time: Jul 27 2022 8:04A Dictated by : VEE GAMINO MD This examination was interpreted and the report reviewed and electronically signed by: VEE GAMINO MD on Jul 27 2022 8:16AM EST [id number] Normal [facility] OXIMETRY WITH AMBULATIONon 0 07-09-2022 [facility] ECHOon 05-21-2022 [facility] .Auto Diffon 05-05-2022 Basophil, Absolute 0.0 10 3/mcL Normal 0.0-0.3 [facility] ([place]) Comment on above: Performed By: #### T GOMEZ, GFR, CMP, PBNP #### [address] [address] Basophils/100 WBC (Bld) 0.1 % Normal 0.0-2.5 A [facility] ([place]) Comment on above: Performed By: #### T GOMEZ, GFR, CMP, PBNP #### [address] [address] Eosinophil, Absolute 0.0 10 3/mcL Normal 0.0-0.7 [facility] ([place]) Comment on above: Performed By: #### T ROPHS, GFR, CMP, PBNP #### [address] [address] Eosinophils/100 WBC (Bld) 0.0 % Normal 0.0-6.0 Counts Include [address] [facility] ([place]) Comment on above: Performed By: #### T ROPHS, GFR, CMP, PBNP #### [address] [address] Lymphocyte, Absolute 0.6 10 3/mcL Low 0.9-4.3 [facility] ([place]) Comment on above: Performed By: #### T ROPHS, GFR, CMP, PBNP #### [address] [address] Lymphocytes/100 WBC (Bld) 5.1 % Low 20.0-40.0 Counts Include [address] [facility] ([place]) Comment on above: Performed By: #### T ROPHS, GFR, CMP, PBNP #### [address] [address] Monocyte, Absolute 0.3 10 3/mcL Normal 0.1-1.4 [facility] ([place]) Comment on above: Performed By: #### T ROPHS, GFR, CMP, PBNP #### [address] [address] Monocytes/100 WBC (Bld) 2.4 % Normal 2.0-13.0 [facility] ([place]) Comment on above: Performed By: #### T ROPHS, GFR, CMP, PBNP #### [address] [address] Neutrophils/100 WBC (Bld) 92.4 % High 50.0-75.0 Counts Include [address] [facility] ([place]) Comment on above: Performed By: #### T ROPHS, GFR, CMP, PBNP #### [address] [address] .GFRon 05-05-2022 GFR >60 Normal [facility] ([place]) Comment on above: Result Comment: GFR Population mean for , Non- Americans Ages 20-29 = 116 mL/min/1.73 sq.m. Ages 30-39 = 107 mL/min/1.73 sq.m. Ages 40-49 = 99 mL/min/1.73 sq.m. Ages 50-59 = 93 mL/min/1.73 sq.m. Ages 60-69 = 85 mL/min/1.73 sq.m. Ages 70+ = 75 mL/min/1.73 sq.m. Chronic Kidney Disease: Less than 60 mL/min/1.73 square meters End Stage Renal Disease: Less than 15 mL/min/1.73 square meters Performed By: #### T GOMEZ, GFR, CMP, PBNP #### [address] [address] GFR Non- >60 Normal Counts Include [address] [facility] ([place]) Comment on above: Result Comment: GFR Population mean for , Non- Americans Ages 20-29 = 116 mL/min/1.73 sq.m. Ages 30-39 = 107 mL/min/1.73 sq.m. Ages 40-49 = 99 mL/min/1.73 sq.m. Ages 50-59 = 93 mL/min/1.73 sq.m. Ages 60-69 = 85 mL/min/1.73 sq.m. Ages 70+ = 75 mL/min/1.73 sq.m. Chronic Kidney Disease: Less than 60 mL/min/1.73 square meters End Stage Renal Disease: Less than 15 mL/min/1.73 square meters Performed By: #### T GOMEZ, GFR, CMP, PBNP #### [address] [address] .MDWon 05-05-2022 Monocyte Distribution Width Not performed Normal 0.00-20.00 Counts Include [address] [facility] ([place]) Comment on above: Result Comment: MDW testing performed only on adult ER patients between the ages of 18-89 years. Performed By: #### T GOMEZ, GFR, CMP, PBNP #### [address] [address] .NEUABSon 05-05-2022 Neutrophil, Absolute 10.8 10 3/mcL High 2.3-8.1 A [facility] ([place]) Comment on above: Performed By: #### T GOMEZ, GFR, CMP, PBNP #### [place] [address] [address] BMPon 05-05-2022 BUN/Creatinine Ratio 29.6 ratio High 10.0-22.0 [facility] ([place]) Comment on above: Performed By: #### T ROPHS, GFR, CMP, PBNP #### [address] [address] Calcium [Mass/Vol] 8.5 mg/dL Low 8.7-10.4 [facility] ([place]) Comment on above: Performed By: #### T ROPHS, GFR, CMP, PBNP #### [address] [address] Chloride [Moles/Vol] 106 mmol/L Normal 98-110 [facility] ([place]) Comment on above: Performed By: #### T ROPHS, GFR, CMP, PBNP #### [address] [address] CO2 [Moles/Vol] 32 mmol/L Normal 22-32 Counts Include [address] [facility] ([place]) Comment on above: Performed By: #### T GOMEZ, GFR, CMP, PBNP #### [address] [address] Creatinine [Mass/Vol] 0.71 mg/dL Normal 0.50-1.20 [facility] ([place]) Comment on above: Performed By: #### T GOMEZ, GFR, CMP, PBNP #### [address] [address] Electrolyte Balance 3.0 mEq/L Low 4.0-15.0 [facility] ([place]) Comment on above: Performed By: #### T ROPHS, GFR, CMP, PBNP #### [address] [address] Glucose [Mass/Vol] 224 mg/dL High 82-115 [facility] ([place]) Comment on above: Performed By: #### T ROPHS, GFR, CMP, PBNP #### [address] [address] Potassium [Moles/Vol] 4.5 mmol/L Normal 3.5-5.0 [facility] ([place]) Comment on above: Performed By: #### T ROPHS, GFR, CMP, PBNP #### [address] [address] Sodium [Moles/Vol] 141 mmol/L Normal 136-145 [facility] ([place]) Comment on above: Performed By: #### T ROPHS, GFR, CMP, PBNP #### [address] [address] Urea nitrogen [Mass/Vol] 21.0 mg/dL Normal 8.0-22.0 Counts Include [address] [facility] ([place]) Comment on above: Performed By: #### T ROPHS, GFR, CMP, PBNP #### [address] [address] CBCon 05-05-2022 Erythrocyte distribution width (RBC) [Ratio] 16.5 % High 11.5-15.5 Counts Include [address] [facility] ([place]) Comment on above: Performed By: #### T ROPHS, GFR, CMP, PBNP #### [address] [address] Hematocrit (Bld) [Volume fraction] 38.3 % Normal 34.0-46.0 Counts Include [address] [facility] ([place]) Comment on above: Performed By: #### T ARIELLEHS, GFR, CMP, PBNP #### [place] [id number] Hgb 12.2 G/dL Normal 12.0-16.0 Counts Include [address] [facility] ([place]) Comment on above: Performed By: #### T ROPHS, GFR, CMP, PBNP #### [address] [address] MCH (RBC) [Entitic mass] 30.9 pg Normal 27.0-33.0 Counts Include [address] [facility] ([place]) Comment on above: Performed By: #### T ROPHS, GFR, CMP, PBNP #### [address] [address] MCHC 32.0 G/dL Normal 32.0-36.0 Counts Include [address] [facility] ([place]) Comment on above: Performed By: #### T ROPHS, GFR, CMP, PBNP #### [address] [address] MCV (RBC) [Entitic vol] 96.7 fL Normal 80.0-99.0 A [facility] ([place]) Comment on above: Performed By: #### T GOMEZ, GFR, CMP, PBNP #### [address] [address] Platelet 285 10 3/mcL Normal 150-450 Counts Include [facility] At [facility] ([place]) Comment on above: Performed By: #### T GOMEZ, GFR, CMP, PBNP #### Anthony [address] [address] Platelet mean volume (Bld) [Entitic vol] 8.9 fL Normal 6.6-10.5 Counts Include 234 [facility]eds At [facility] ([place]) Comment on above: Performed By: #### T GOMEZ, GFR, CMP, PBNP #### Anthony [address] [address] RBC 3.96 10 6/mcL Low 4.10-5.30 Counts Include 234 [facility] At [facility] ([place] Comment on above: Performed By: #### T GOMEZ, GFR, CMP, PBNP #### [address] [address] WBC 11.6 10 3/mcL High 4.5-10.8 Counts Include 234 [facility]eds At [facility] ([place] Comment on above: Performed By: #### T GOMEZ, GFR, CMP, PBNP #### [address] [address] LABORATORYOrdered By: SYSTEM SYSTEM on 05-05-2022 Basophils (Bld) [#/Vol] 0.0 103/mcL Invalid Interpretation Code 0.0 - 0.3 10^3/mcL AH Workflow SS Basophils/100 WBC (Bld) 0.1 % Invalid Interpretation Code 0.0 - 2.5 % AH Workflow SS Calcium [Mass/Vol] 8.5 mg/dL Invalid Interpretation Code 8.7 - 10.4 mg/dL AH ADM SS Chloride [Moles/Vol] 106 mmol/L Invalid Interpretation Code 98 - 110 mEq/L AH ADM SS CO2 [Moles/Vol] 32 mmol/L Invalid Interpretation Code 22 - 32 mEq/L AH ADM SS Creatinine [Mass/Vol] 0.71 mg/dL Invalid Interpretation Code 0.50 - 1.20 mg/dL AH ADM SS Electrolyte Balance 3.0 mEq/L Invalid Interpretation Code 4.0 - 15.0 mEq/L ADM SS Eosinophils (Bld) [#/Vol] 0.0 103/mcL Invalid Interpretation Code 0.0 - 0.7 10^3/mcL AH Workflow SS Eosinophils/100 WBC (Bld) 0.0 % Invalid Interpretation Code 0.0 - 6.0 % AH Workflow SS Erythrocyte distribution width (RBC) [Ratio] 16.5 % Invalid Interpretation Code 11.5 - 15.5 % AH Workflow SS GFR/1.73 sq M.predicted among blacks MDRD (S/P/Bld) [Vol rate/Area] ml/min/1.73sqm Invalid Interpretation Code Chemistry S GFR/1.73 sq M.predicted among non-blacks MDRD (S/P/Bld) [Vol rate/Area] ml/min/1.73sqm Invalid Interpretation Code Chemistry S Glucose [Mass/Vol] 224 mg/dL Invalid Interpretation Code 82 - 115 mg/dL ADM SS Hematocrit (Bld) [Volume fraction] 38.3 % Invalid Interpretation Code 34.0 - 46.0 % Workflow SS Hemoglobin (Bld) [Mass/Vol] 12.2 G/dL Invalid Interpretation Code 12.0 - 16.0 G/dL Workflow SS Lymphocytes (Bld) [#/Vol] 0.6 103/mcL Invalid Interpretation Code 0.9 - 4.3 10^3/mcL Workflow SS Lymphocytes/100 WBC (Bld) 5.1 % Invalid Interpretation Code 20.0 - 40.0 % Workflow SS MCH (RBC) [Entitic mass] 30.9 pg Invalid Interpretation Code 27.0 - 33.0 pg Workflow SS MCHC 32.0 G/dL Invalid Interpretation Code 32.0 - 36.0 G/dL Workflow SS MCV (RBC) [Entitic vol] 96.7 fL Invalid Interpretation Code 80.0 - 99.0 fL Workflow SS Monocyte distribution width Auto (Bld) [Entitic vol] Not Performed 1 *NA* (05/05/22 6:59 AM) Invalid Interpretation Code 0.00 - 20.00 Hematology S Comment on above: Result Comment: MDW testing performed only on adult ER patients between the ages of 18-89 years. Monocytes (Bld) [#/Vol] 0.3 103/mcL Invalid Interpretation Code 0.1 - 1.4 10^3/mcL AH Workflow SS Monocytes/100 WBC (Bld) 2.4 % Invalid Interpretation Code 2.0 - 13.0 % AH Workflow SS Neutrophils (Bld) [#/Vol] 10.8 103/mcL Invalid Interpretation Code 2.3 - 8.1 10^3/mcL AH Workflow SS Neutrophils/100 WBC (Bld) 92.4 % Invalid Interpretation Code 50.0 - 75.0 % AH Workflow SS Platelet mean volume (Bld) [Entitic vol] 8.9 fL Invalid Interpretation Code 6.6 - 10.5 fL AH Workflow SS Platelets (Bld) [#/Vol] 285 103/mcL Invalid Interpretation Code 150 - 450 10^3/mcL AH Workflow SS Potassium [Moles/Vol] 4.5 mmol/L Invalid Interpretation Code 3.5 - 5.0 mEq/L AH ADM SS RBC (Bld) [#/Vol] 3.96 106/mcL Invalid Interpretation Code 4.10 - 5.30 10^6/mcL AH Workflow SS Sodium [Moles/Vol] 141 mmol/L Invalid Interpretation Code 136 - 145 mEq/L AH ADM SS Urea nitrogen [Mass/Vol] 21.0 mg/dL Invalid Interpretation Code 8.0 - 22.0 mg/dL AH ADM SS Urea nitrogen/Creatinine [Mass ratio] 29.6 ratio Invalid Interpretation Code 10.0 - 22.0 ratio AH ADM SS WBC 11.6 103/mcL Invalid Interpretation Code 4.5 - 10.8 10^3/mcL AH Workflow SS .Auto Diffon 05-04-2022 Basophil, Absolute 0.0 10 3/mcL Normal 0.0-0.3 [facility] ([place]) Comment on above: Performed By: #### T GOMEZ, GFR, CMP, PBNP #### [address] [address] Basophils/100 WBC (Bld) 0.2 % Normal 0.0-2.5 A [facility] ([place]) Comment on above: Performed By: #### T GOMEZ, GFR, CMP, PBNP #### [place] [address] [place], [place] [address] Eosinophil, Absolute 0.0 10 3/mcL Normal 0.0-0.7 [facility] ([place]) Comment on above: Performed By: #### T ROPHS, GFR, CMP, PBNP #### [address] [address] Eosinophils/100 WBC (Bld) 0.0 % Normal 0.0-6.0 Counts Include [address] [facility]eds At [facility] ([place] Comment on above: Performed By: #### T ROPHS, GFR, CMP, PBNP #### [address] [address] Lymphocyte, Absolute 0.6 10 3/mcL Low 0.9-4.3 [facility] ([place] Comment on above: Performed By: #### T ROPHS, GFR, CMP, PBNP #### [address] [address] Lymphocytes/100 WBC (Bld) 5.0 % Low 20.0-40.0 Counts Include 234 [facility] At [facility] ([place] Comment on above: Performed By: #### T ROPHS, GFR, CMP, PBNP #### [address] [address] Monocyte, Absolute 0.3 10 3/mcL Normal 0.1-1.4 [facility] ([place]) Comment on above: Performed By: #### T ROPHS, GFR, CMP, PBNP #### [address] [address] Monocytes/100 WBC (Bld) 2.4 % Normal 2.0-13.0 [facility] ([place]) Comment on above: Performed By: #### T ROPHS, GFR, CMP, PBNP #### [address] [address] Neutrophils/100 WBC (Bld) 92.4 % High 50.0-75.0 Counts Include 234 [facility] ([place] Comment on above: Performed By: #### T ROPHS, GFR, CMP, PBNP #### [address] [address] .GFRon 05-04-2022 GFR >60 Normal [facility] ([place]) Comment on above: Result Comment: GFR Population mean for , Non- Americans Ages 20-29 = 116 mL/min/1.73 sq.m. Ages 30-39 = 107 mL/min/1.73 sq.m. Ages 40-49 = 99 mL/min/1.73 sq.m. Ages 50-59 = 93 mL/min/1.73 sq.m. Ages 60-69 = 85 mL/min/1.73 sq.m. Ages 70+ = 75 mL/min/1.73 sq.m. Chronic Kidney Disease: Less than 60 mL/min/1.73 square meters End Stage Renal Disease: Less than 15 mL/min/1.73 square meters Performed By: #### T GOMEZ, GFR, CMP, PBNP #### [place] [address] [address] GFR Non- >60 Normal Counts Include 234 [facility]eds At [facility] ([place] Comment on above: Result Comment: GFR Population mean for , Non- Americans Ages 20-29 = 116 mL/min/1.73 sq.m. Ages 30-39 = 107 mL/min/1.73 sq.m. Ages 40-49 = 99 mL/min/1.73 sq.m. Ages 50-59 = 93 mL/min/1.73 sq.m. Ages 60-69 = 85 mL/min/1.73 sq.m. Ages 70+ = 75 mL/min/1.73 sq.m. Chronic Kidney Disease: Less than 60 mL/min/1.73 square meters End Stage Renal Disease: Less than 15 mL/min/1.73 square meters Performed By: #### T GOMEZ, GFR, CMP, PBNP #### [place] [address] [address] .MDWon 05-04-2022 Monocyte Distribution Width Not performed Normal 0.00-20.00 Counts Include [facility] At [facility] ([place] Comment on above: Result Comment: MDW testing performed only on adult ER patients between the ages of 18-89 years. Performed By: #### T GOMEZ, GFR, CMP, PBNP #### [address] [address] .NEUABSon 05-04-2022 Neutrophil, Absolute 10.5 10 3/mcL High 2.3-8.1 A [facility] ([place]) Comment on above: Performed By: #### T GOMEZ, GFR, CMP, PBNP #### [address] [address] BMPon 05-04-2022 BUN/Creatinine Ratio 24.7 ratio High 10.0-22.0 [facility] ([place]) Comment on above: Performed By: #### T GOMEZ, GFR, CMP, PBNP #### [address] [address] Calcium [Mass/Vol] 8.7 mg/dL Normal 8.7-10.4 [facility] ([place]) Comment on above: Performed By: #### T GOMEZ, GFR, CMP, PBNP #### [address] [address] Chloride [Moles/Vol] 108 mmol/L Normal 98-110 [facility] ([place] Comment on above: Performed By: #### T GOMEZ, GFR, CMP, PBNP #### [address] [address] CO2 [Moles/Vol] 30 mmol/L Normal 22-32 Counts Include 234 [facility] ([place] Comment on above: Performed By: #### T GOMEZ, GFR, CMP, PBNP #### [address] [address] Creatinine [Mass/Vol] 0.85 mg/dL Normal 0.50-1.20 [facility] ([place]) Comment on above: Performed By: #### T ARIELLEHS, GFR, CMP, PBNP #### [address] [address] Electrolyte Balance 3.0 mEq/L Low 4.0-15.0 [facility] ([place]) Comment on above: Performed By: #### T ROPHS, GFR, CMP, PBNP #### [address] [address] Glucose [Mass/Vol] 150 mg/dL High 82-115 [facility] ([place]) Comment on above: Performed By: #### T ROPHS, GFR, CMP, PBNP #### [address] [address] Potassium [Moles/Vol] 4.8 mmol/L Normal 3.5-5.0 [facility] ([place]) Comment on above: Performed By: #### T ROPHS, GFR, CMP, PBNP #### [place] [id number] Sodium [Moles/Vol] 141 mmol/L Normal 136-145 [facility] ([place]) Comment on above: Performed By: #### T ROPHS, GFR, CMP, PBNP #### [place] [address] Urea nitrogen [Mass/Vol] 21.0 mg/dL Normal 8.0-22.0 Counts Include [address] [facility] At [facility] ([place] Comment on above: Performed By: #### T GOMEZ, GFR, CMP, PBNP #### [address] [address] CBCon 05-04-2022 Erythrocyte distribution width (RBC) [Ratio] 16.6 % High 11.5-15.5 Counts Include 234 [facility]eds [facility] ([place] Comment on above: Performed By: #### T ROPHS, GFR, CMP, PBNP #### [address] [address] Hematocrit (Bld) [Volume fraction] 39.9 % Normal 34.0-46.0 Counts Include 234 [facility] ([place] Comment on above: Performed By: #### T ROPHS, GFR, CMP, PBNP #### [place] [id number] Hgb 12.8 G/dL Normal 12.0-16.0 Counts Include 234 [facility] ([place] Comment on above: Performed By: #### T ROPHS, GFR, CMP, PBNP #### [address] [address] MCH (RBC) [Entitic mass] 30.8 pg Normal 27.0-33.0 Counts Include 234 [facility] ([place] Comment on above: Performed By: #### T ROPHS, GFR, CMP, PBNP #### [address] [address] MCHC 32.0 G/dL Normal 32.0-36.0 Counts Include 234 [facility] ([place] Comment on above: Performed By: #### T ROPHS, GFR, CMP, PBNP #### [address] [address] MCV (RBC) [Entitic vol] 96.4 fL Normal 80.0-99.0 A [facility] ([place]) Comment on above: Performed By: #### T ARIELLEHS, GFR, CMP, PBNP #### [place] [id number] Platelet 282 10 3/mcL Normal 150-450 Counts Include 234 [facility] ([place] Comment on above: Performed By: #### T GOMEZ, GFR, CMP, PBNP #### [place] [address] Platelet mean volume (Bld) [Entitic vol] 8.9 fL Normal 6.6-10.5 Counts Include 234 [facility]eds [facility] ([place] Comment on above: Performed By: #### T GOMEZ, GFR, CMP, PBNP #### [place] [address] RBC 4.14 10 6/mcL Normal 4.10-5.30 Counts Include 234 [facility]eds [facility] ([place] Comment on above: Performed By: #### T ROPHS, GFR, CMP, PBNP #### [place] [id number] WBC 11.4 10 3/mcL High 4.5-10.8 Counts Include 234 [facility]eds [facility] ([place] Comment on above: Performed By: #### T ROPHS, GFR, CMP, PBNP #### [address] [address] LABORATORYOrdered By: SYSTEM SYSTEM on 05-04-2022 Basophils (Bld) [#/Vol] 0.0 103/mcL Invalid Interpretation Code 0.0 - 0.3 10^3/mcL AH Workflow SS Basophils/100 WBC (Bld) 0.2 % Invalid Interpretation Code 0.0 - 2.5 % Workflow SS Calcium [Mass/Vol] 8.7 mg/dL Invalid Interpretation Code 8.7 - 10.4 mg/dL ADM SS Chloride [Moles/Vol] 108 mmol/L Invalid Interpretation Code 98 - 110 mEq/L ADM SS CO2 [Moles/Vol] 30 mmol/L Invalid Interpretation Code 22 - 32 mEq/L ADM SS Creatinine [Mass/Vol] 0.85 mg/dL Invalid Interpretation Code 0.50 - 1.20 mg/dL ADM SS Electrolyte Balance 3.0 mEq/L Invalid Interpretation Code 4.0 - 15.0 mEq/L ADM SS Eosinophils (Bld) [#/Vol] 0.0 103/mcL Invalid Interpretation Code 0.0 - 0.7 10^3/mcL Workflow SS Eosinophils/100 WBC (Bld) 0.0 % Invalid Interpretation Code 0.0 - 6.0 % Workflow SS Erythrocyte distribution width (RBC) [Ratio] 16.6 % Invalid Interpretation Code 11.5 - 15.5 % Workflow SS GFR/1.73 sq M.predicted among blacks MDRD (S/P/Bld) [Vol rate/Area] ml/min/1.73sqm Invalid Interpretation Code Chemistry S GFR/1.73 sq M.predicted among non-blacks MDRD (S/P/Bld) [Vol rate/Area] ml/min/1.73sqm Invalid Interpretation Code Chemistry S Glucose [Mass/Vol] 150 mg/dL Invalid Interpretation Code 82 - 115 mg/dL ADM SS Hematocrit (Bld) [Volume fraction] 39.9 % Invalid Interpretation Code 34.0 - 46.0 % Workflow SS Hemoglobin (Bld) [Mass/Vol] 12.8 G/dL Invalid Interpretation Code 12.0 - 16.0 G/dL Workflow SS Lymphocytes (Bld) [#/Vol] 0.6 103/mcL Invalid Interpretation Code 0.9 - 4.3 10^3/mcL Workflow SS Lymphocytes/100 WBC (Bld) 5.0 % Invalid Interpretation Code 20.0 - 40.0 % Workflow SS MCH (RBC) [Entitic mass] 30.8 pg Invalid Interpretation Code 27.0 - 33.0 pg Workflow SS MCHC 32.0 G/dL Invalid Interpretation Code 32.0 - 36.0 G/dL Workflow SS MCV (RBC) [Entitic vol] 96.4 fL Invalid Interpretation Code 80.0 - 99.0 fL Workflow SS Monocyte distribution width Auto (Bld) [Entitic vol] Not Performed 2 *NA* (05/04/22 6:15 AM) Invalid Interpretation Code 0.00 - 20.00 Hematology S Comment on above: Result Comment: MDW testing performed only on adult ER patients between the ages of 18-89 years. Monocytes (Bld) [#/Vol] 0.3 103/mcL Invalid Interpretation Code 0.1 - 1.4 10^3/mcL Workflow SS Monocytes/100 WBC (Bld) 2.4 % Invalid Interpretation Code 2.0 - 13.0 % Workflow SS Neutrophils (Bld) [#/Vol] 10.5 103/mcL Invalid Interpretation Code 2.3 - 8.1 10^3/mcL Workflow SS Neutrophils/100 WBC (Bld) 92.4 % Invalid Interpretation Code 50.0 - 75.0 % Workflow SS Platelet mean volume (Bld) [Entitic vol] 8.9 fL Invalid Interpretation Code 6.6 - 10.5 fL Workflow SS Platelets (Bld) [#/Vol] 282 103/mcL Invalid Interpretation Code 150 - 450 10^3/mcL Workflow SS Potassium [Moles/Vol] 4.8 mmol/L Invalid Interpretation Code 3.5 - 5.0 mEq/L ADM SS RBC (Bld) [#/Vol] 4.14 106/mcL Invalid Interpretation Code 4.10 - 5.30 10^6/mcL Workflow SS Sodium [Moles/Vol] 141 mmol/L Invalid Interpretation Code 136 - 145 mEq/L ADM SS Urea nitrogen [Mass/Vol] 21.0 mg/dL Invalid Interpretation Code 8.0 - 22.0 mg/dL ADM SS Urea nitrogen/Creatinine [Mass ratio] 24.7 ratio Invalid Interpretation Code 10.0 - 22.0 ratio ADM SS WBC 11.4 103/mcL Invalid Interpretation Code 4.5 - 10.8 10^3/mcL Workflow SS .Auto Diffon 05-03-2022 Basophil, Absolute 0.1 10 3/mcL Normal 0.0-0.3 [facility] ([place]) Comment on above: Performed By: #### T ROPHS, GFR, CMP, PBNP #### [address] [address] Basophils/100 WBC (Bld) 0.7 % Normal 0.0-2.5 A [facility] ([place]) Comment on above: Performed By: #### T ROPHS, GFR, CMP, PBNP #### [address] [address] Eosinophil, Absolute 0.0 10 3/mcL Normal 0.0-0.7 [facility] ([place] Comment on above: Performed By: #### T ROPHS, GFR, CMP, PBNP #### [address] [address] Eosinophils/100 WBC (Bld) 0.3 % Normal 0.0-6.0 Counts Include 234 Beds At [facility] ([place] Comment on above: Performed By: #### T ROPHS, GFR, CMP, PBNP #### [address] [address] Lymphocyte, Absolute 2.3 10 3/mcL Normal 0.9-4.3 [facility] ([place] Comment on above: Performed By: #### T ROPHS, GFR, CMP, PBNP #### [address] [address] Lymphocytes/100 WBC (Bld) 25.2 % Normal 20.0-40.0 Counts Include 234 [facility]eds At [facility] ([place] Comment on above: Performed By: #### T ROPHS, GFR, CMP, PBNP #### [address] [address] Monocyte, Absolute 1.0 10 3/mcL Normal 0.1-1.4 [facility] ([place] Comment on above: Performed By: #### T ROPHS, GFR, CMP, PBNP #### [address] [address] Monocytes/100 WBC (Bld) 10.8 % Normal 2.0-13.0 A [facility] ([place] Comment on above: Performed By: #### T ROPHS, GFR, CMP, PBNP #### [address] [address] Neutrophils/100 WBC (Bld) 63.0 % Normal 50.0-75.0 Counts Include 234 [facility]eds At [facility] ([place] Comment on above: Performed By: #### T GOMEZ, GFR, CMP, PBNP #### [place] [address] [address] .GFRon 05-03-2022 GFR Non- >60 Normal Counts Include 234 [facility]eds At [facility] ([place] Comment on above: Result Comment: GFR Population mean for , Non- Americans Ages 20-29 = 116 mL/min/1.73 sq.m. Ages 30-39 = 107 mL/min/1.73 sq.m. Ages 40-49 = 99 mL/min/1.73 sq.m. Ages 50-59 = 93 mL/min/1.73 sq.m. Ages 60-69 = 85 mL/min/1.73 sq.m. Ages 70+ = 75 mL/min/1.73 sq.m. Chronic Kidney Disease: Less than 60 mL/min/1.73 square meters End Stage Renal Disease: Less than 15 mL/min/1.73 square meters Performed By: #### T GOMEZ, GFR, CMP, PBNP #### [address] [address] GFR >60 Normal [facility] ([place] Comment on above: Result Comment: GFR Population mean for , Non- Americans Ages 20-29 = 116 mL/min/1.73 sq.m. Ages 30-39 = 107 mL/min/1.73 sq.m. Ages 40-49 = 99 mL/min/1.73 sq.m. Ages 50-59 = 93 mL/min/1.73 sq.m. Ages 60-69 = 85 mL/min/1.73 sq.m. Ages 70+ = 75 mL/min/1.73 sq.m. Chronic Kidney Disease: Less than 60 mL/min/1.73 square meters End Stage Renal Disease: Less than 15 mL/min/1.73 square meters Performed By: #### T GOMEZ, GFR, CMP, PBNP #### [place] [address] [address] .MDWon 05-03-2022 Monocyte Distribution Width Not performed Normal 0.00-20.00 Counts Include 234 Beds At [facility] ([place] Comment on above: Result Comment: MDW testing performed only on adult ER patients between the ages of 18-89 years. Performed By: #### T ROPHS, GFR, CMP, PBNP #### [address] [address] .NEUABSon 05-03-2022 Neutrophil, Absolute 5.6 10 3/mcL Normal 2.3-8.1 [facility] ([place] Comment on above: Performed By: #### T ROPHS, GFR, CMP, PBNP #### [address] [address] BMPon 05-03-2022 BUN/Creatinine Ratio 17.9 ratio Normal 10.0-22.0 [facility] ([place] Comment on above: Performed By: #### T ROPHS, GFR, CMP, PBNP #### [address] [address] Calcium [Mass/Vol] 8.7 mg/dL Normal 8.7-10.4 [facility] ([place] Comment on above: Performed By: #### T ROPHS, GFR, CMP, PBNP #### [address] [address] Chloride [Moles/Vol] 110 mmol/L Normal 98-110 [facility] ([place] Comment on above: Performed By: #### T ROPHS, GFR, CMP, PBNP #### [address] [address] CO2 [Moles/Vol] 28 mmol/L Normal 22-32 Counts Include 234 Beds At [facility] ([place] Comment on above: Performed By: #### T ROPHS, GFR, CMP, PBNP #### [address] [address] Creatinine [Mass/Vol] 0.84 mg/dL Normal 0.50-1.20 [facility] ([place] Comment on above: Performed By: #### T ROPHS, GFR, CMP, PBNP #### [address] [address] Electrolyte Balance 6.0 mEq/L Normal 4.0-15.0 [facility] ([place] Comment on above: Performed By: #### T ROPHS, GFR, CMP, PBNP #### [address] [address] Glucose [Mass/Vol] 96 mg/dL Normal 82-115 [facility] ([place] Comment on above: Performed By: #### T ROPHS, GFR, CMP, PBNP #### [address] [address] Potassium [Moles/Vol] 4.5 mmol/L Normal 3.5-5.0 [facility] ([place] Comment on above: Performed By: #### T ROPHS, GFR, CMP, PBNP #### [address] [address] Sodium [Moles/Vol] 144 mmol/L Normal 136-145 [facility] ([place] Comment on above: Performed By: #### T ROPHS, GFR, CMP, PBNP #### [address] [address] Urea nitrogen [Mass/Vol] 15.0 mg/dL Normal 8.0-22.0 Counts Include 234 Beds At [facility] ([place] Comment on above: Performed By: #### T ROPHS, GFR, CMP, PBNP #### [address] [address] CBCon 05-03-2022 Erythrocyte distribution width (RBC) [Ratio] 16.3 % High 11.5-15.5 Counts Include 234 [facility] At [facility] ([place] Comment on above: Performed By: #### T ROPHS, GFR, CMP, PBNP #### [address] [address] Hematocrit (Bld) [Volume fraction] 40.5 % Normal 34.0-46.0 Counts Include [address] [facility] At [facility] ([place] Comment on above: Performed By: #### T ROPHS, GFR, CMP, PBNP #### [address] [address] Hgb 13.2 G/dL Normal 12.0-16.0 Counts Include [address] [facility] At [facility] ([place] Comment on above: Performed By: #### T ROPHS, GFR, CMP, PBNP #### [address] [address] MCH (RBC) [Entitic mass] 31.4 pg Normal 27.0-33.0 Counts Include 234 [facility] At [facility] ([place] Comment on above: Performed By: #### T ROPHS, GFR, CMP, PBNP #### [address] [address] MCHC 32.6 G/dL Normal 32.0-36.0 Counts Include 234 Beds At [facility] ([place] Comment on above: Performed By: #### T ROPHS, GFR, CMP, PBNP #### [place] [address] [address] MCV (RBC) [Entitic vol] 96.1 fL Normal 80.0-99.0 A [facility] ([place] Comment on above: Performed By: #### T ROPHS, GFR, CMP, PBNP #### [address] [address] Platelet 290 10 3/mcL Normal 150-450 Counts Include 234 B[facility] ([place] Comment on above: Performed By: #### T ROPHS, GFR, CMP, PBNP #### [address] [address] Platelet mean volume (Bld) [Entitic vol] 8.9 fL Normal 6.6-10.5 Counts Include 234 [facility] At [facility] ([place] Comment on above: Performed By: #### T ROPHS, GFR, CMP, PBNP #### [address] [address] RBC 4.21 10 6/mcL Normal 4.10-5.30 Counts Include 234 [facility] At [facility] ([place] Comment on above: Performed By: #### T ROPHS, GFR, CMP, PBNP #### [address] [address] WBC 8.9 10 3/mcL Normal 4.5-10.8 Counts Include 234 [facility] At [facility] ([place] Comment on above: Performed By: #### T ROPHS, GFR, CMP, PBNP #### [facility] [address] [place], [place] [address] LABORATORYOrdered By: SYSTEM SYSTEM on 05-03-2022 Basophils (Bld) [#/Vol] 0.1 103/mcL Invalid Interpretation Code 0.0 - 0.3 10^3/mcL AH Workflow SS Basophils/100 WBC (Bld) 0.7 % Invalid Interpretation Code 0.0 - 2.5 % AH Workflow SS Calcium [Mass/Vol] 8.7 mg/dL Invalid Interpretation Code 8.7 - 10.4 mg/dL ADM SS Chloride [Moles/Vol] 110 mmol/L Invalid Interpretation Code 98 - 110 mEq/L ADM SS CO2 [Moles/Vol] 28 mmol/L Invalid Interpretation Code 22 - 32 mEq/L ADM SS Creatinine [Mass/Vol] 0.84 mg/dL Invalid Interpretation Code 0.50 - 1.20 mg/dL ADM SS Electrolyte Balance 6.0 mEq/L Invalid Interpretation Code 4.0 - 15.0 mEq/L ADM SS Eosinophils (Bld) [#/Vol] 0.0 103/mcL Invalid Interpretation Code 0.0 - 0.7 10^3/mcL AH Workflow SS Eosinophils/100 WBC (Bld) 0.3 % Invalid Interpretation Code 0.0 - 6.0 % AH Workflow SS Erythrocyte distribution width (RBC) [Ratio] 16.3 % Invalid Interpretation Code 11.5 - 15.5 % AH Workflow SS GFR/1.73 sq M.predicted among blacks MDRD (S/P/Bld) [Vol rate/Area] ml/min/1.73sqm Invalid Interpretation Code Chemistry S GFR/1.73 sq M.predicted among non-blacks MDRD (S/P/Bld) [Vol rate/Area] ml/min/1.73sqm Invalid Interpretation Code Chemistry S Glucose [Mass/Vol] 96 mg/dL Invalid Interpretation Code 82 - 115 mg/dL ADM SS Hematocrit (Bld) [Volume fraction] 40.5 % Invalid Interpretation Code 34.0 - 46.0 % AH Workflow SS Hemoglobin (Bld) [Mass/Vol] 13.2 G/dL Invalid Interpretation Code 12.0 - 16.0 G/dL AH Workflow SS Lymphocytes (Bld) [#/Vol] 2.3 103/mcL Invalid Interpretation Code 0.9 - 4.3 10^3/mcL AH Workflow SS Lymphocytes/100 WBC (Bld) 25.2 % Invalid Interpretation Code 20.0 - 40.0 % AH Workflow SS Magnesium [Mass/Vol] 1.8 mg/dL Invalid Interpretation Code 1.6 - 2.4 mg/dL AH ADM SS MCH (RBC) [Entitic mass] 31.4 pg Invalid Interpretation Code 27.0 - 33.0 pg AH Workflow SS MCHC 32.6 G/dL Invalid Interpretation Code 32.0 - 36.0 G/dL AH Workflow SS MCV (RBC) [Entitic vol] 96.1 fL Invalid Interpretation Code 80.0 - 99.0 fL AH Workflow SS Monocyte distribution width Auto (Bld) [Entitic vol] Not Performed 3 *NA* (05/03/22 5:52 AM) Invalid Interpretation Code 0.00 - 20.00 Hematology S Comment on above: Result Comment: MDW testing performed only on adult ER patients between the ages of 18-89 years. Monocytes (Bld) [#/Vol] 1.0 103/mcL Invalid Interpretation Code 0.1 - 1.4 10^3/mcL AH Workflow SS Monocytes/100 WBC (Bld) 10.8 % Invalid Interpretation Code 2.0 - 13.0 % AH Workflow SS Neutrophils (Bld) [#/Vol] 5.6 103/mcL Invalid Interpretation Code 2.3 - 8.1 10^3/mcL AH Workflow SS Neutrophils/100 WBC (Bld) 63.0 % Invalid Interpretation Code 50.0 - 75.0 % AH Workflow SS Platelet mean volume (Bld) [Entitic vol] 8.9 fL Invalid Interpretation Code 6.6 - 10.5 fL AH Workflow SS Platelets (Bld) [#/Vol] 290 103/mcL Invalid Interpretation Code 150 - 450 10^3/mcL AH Workflow SS Potassium [Moles/Vol] 4.5 mmol/L Invalid Interpretation Code 3.5 - 5.0 mEq/L ADM SS RBC (Bld) [#/Vol] 4.21 106/mcL Invalid Interpretation Code 4.10 - 5.30 10^6/mcL AH Workflow SS Sodium [Moles/Vol] 144 mmol/L Invalid Interpretation Code 136 - 145 mEq/L AH ADM SS Urea nitrogen [Mass/Vol] 15.0 mg/dL Invalid Interpretation Code 8.0 - 22.0 mg/dL AH ADM SS Urea nitrogen/Creatinine [Mass ratio] 17.9 ratio Invalid Interpretation Code 10.0 - 22.0 ratio AH ADM SS WBC 8.9 103/mcL Invalid Interpretation Code 4.5 - 10.8 10^3/mcL AH Workflow SS MGon 05-03-2022 Magnesium [Mass/Vol] 1.8 mg/dL Normal 1.6-2.4 [facility] ([place]) Comment on above: Performed By: #### T ROPHS, GFR, CMP, PBNP #### [address] [address] .Auto Diffon 05-02-2022 Basophil, Absolute 0.1 10 3/mcL Normal 0.0-0.2 [facility] ([place]) Comment on above: Performed By: #### T GOMEZ, GFR, CMP, PBNP #### [address] [address] Basophils/100 WBC (Bld) 0.9 % Normal 0.0-2.5 [facility] ([place]) Comment on above: Performed By: #### T GOMEZ, GFR, CMP, PBNP #### [address] [address] Eosinophil, Absolute 0.1 10 3/mcL Normal 0.0-0.4 [facility] ([place]) Comment on above: Performed By: #### T ROPHS, GFR, CMP, PBNP #### [address] [address] Eosinophils/100 WBC (Bld) 0.8 % Normal 0.0-7.0 Counts Include [facility] ([place]) Comment on above: Performed By: #### T ROPHS, GFR, CMP, PBNP #### [address] [address] Lymphocyte, Absolute 2.1 10 3/mcL Normal 0.8-3.9 [facility] ([place]) Comment on above: Performed By: #### T ROPHS, GFR, CMP, PBNP #### [address] [address] Lymphocytes/100 WBC (Bld) 16.7 % Normal 10.0-50.0 Counts Include [facility] ([place] Comment on above: Performed By: #### T ROPHS, GFR, CMP, PBNP #### [address] [address] Monocyte, Absolute 0.9 10 3/mcL Normal 0.2-1.0 [facility] ([place]) Comment on above: Performed By: #### T ROPHS, GFR, CMP, PBNP #### [address] [address] Monocytes/100 WBC (Bld) 7.0 % Normal 1.7-13.0 [facility] ([place] Comment on above: Performed By: #### T ROPMARILEE, GFR, CMP, PBNP #### [address] [address] Neutrophils/100 WBC (Bld) 74.6 % Normal 37.0-80.0 Counts Include [facility] ([place] Comment on above: Performed By: #### T GOMEZ, GFR, CMP, PBNP #### [address] [address] .GFRon 05-02-2022 GFR 61 ml/min/1.73sqm Normal Counts Include [facility] ([place] Comment on above: Result Comment: GFR Population mean for , Non- Americans Ages 20-29 = 116 mL/min/1.73 sq.m. Ages 30-39 = 107 mL/min/1.73 sq.m. Ages 40-49 = 99 mL/min/1.73 sq.m. Ages 50-59 = 93 mL/min/1.73 sq.m. Ages 60-69 = 85 mL/min/1.73 sq.m. Ages 70+ = 75 mL/min/1.73 sq.m. Chronic Kidney Disease: Less than 60 mL/min/1.73 square meters End Stage Renal Disease: Less than 15 mL/min/1.73 square meters Performed By: #### T ROPHS, GFR, CMP, PBNP #### [address] [address] GFR Non- 50 ml/min/1.73sqm Normal Counts Include [facility] ([place] Comment on above: Result Comment: GFR Population mean for , Non- Americans Ages 20-29 = 116 mL/min/1.73 sq.m. Ages 30-39 = 107 mL/min/1.73 sq.m. Ages 40-49 = 99 mL/min/1.73 sq.m. Ages 50-59 = 93 mL/min/1.73 sq.m. Ages 60-69 = 85 mL/min/1.73 sq.m. Ages 70+ = 75 mL/min/1.73 sq.m. Chronic Kidney Disease: Less than 60 mL/min/1.73 square meters End Stage Renal Disease: Less than 15 mL/min/1.73 square meters Performed By: #### T GOMEZ, GFR, CMP, PBNP #### [address] [address] .MDWon 05-02-2022 Monocyte Distribution Width 17.05 Normal 0.00-20.00 Counts Include [facility] ([place] Comment on above: Result Comment: For ED adult patients suspected of sepsis, MDW<=20.0 does not rule out sepsis or risk of sepsis Performed By: #### T GOMEZ, GFR, CMP, PBNP #### [address] [address] .NEUABSon 05-02-2022 Neutrophil, Absolute 9.4 10 3/mcL High 2.9-6.2 [facility] ([place]) Comment on above: Performed By: #### T ROPMARILEE, GFR, CMP, PBNP #### [address] [address] BMPon 05-02-2022 BUN/Creatinine Ratio 9 ratio Normal 7-27 [facility] ([place]) Comment on above: Performed By: #### T GOMEZ, GFR, CMP, PBNP #### [address] [address] Calcium [Mass/Vol] 8.8 mg/dL Normal 8.4-10.2 [facility] ([place]) Comment on above: Performed By: #### T ROPHS, GFR, CMP, PBNP #### [address] [address] Chloride [Moles/Vol] 102 mmol/L Normal 98-107 [facility] ([place] Comment on above: Performed By: #### T ROPHS, GFR, CMP, PBNP #### [address] [address] CO2 [Moles/Vol] 29 mmol/L Normal 23-31 Counts Include [facility] ([place] Comment on above: Performed By: #### T ROPHS, GFR, CMP, PBNP #### [address] [address] Creatinine [Mass/Vol] 1.09 mg/dL High 0.55-1.02 [facility] ([place]) Comment on above: Performed By: #### T ARIELLEHS, GFR, CMP, PBNP #### [address] [address] Electrolyte Balance 7.0 mEq/L Normal 4.0-15.0 [facility] ([place] Comment on above: Performed By: #### T GOMEZ, GFR, CMP, PBNP #### [address] [address] Glucose [Mass/Vol] 194 mg/dL High 80-115 [facility] ([place]) Comment on above: Performed By: #### T ROPHS, GFR, CMP, PBNP #### [address] [address] Potassium [Moles/Vol] 4.1 mmol/L Normal 3.5-5.1 [facility] ([place] Comment on above: Performed By: #### T ROPHS, GFR, CMP, PBNP #### [address] [address] Sodium [Moles/Vol] 138 mmol/L Normal 136-145 [facility] ([place]) Comment on above: Performed By: #### T ROPHS, GFR, CMP, PBNP #### [address] [address] Urea nitrogen [Mass/Vol] 10 mg/dL Normal 7-18 Counts Include [facility] ([place] Comment on above: Performed By: #### T ROPHS, GFR, CMP, PBNP #### [address] [address] CBCon 05-02-2022 Erythrocyte distribution width (RBC) [Ratio] 17.0 % High 11.5-14.5 Counts Include [address] [facility] ([place] Comment on above: Performed By: #### T ROPHS, GFR, CMP, PBNP #### [place] [address] Hematocrit (Bld) [Volume fraction] 45.4 % Normal 37.0-47.0 Counts Include [facility] ([place] Comment on above: Performed By: #### T ROPHS, GFR, CMP, PBNP #### [place] [address] Hgb 14.9 G/dL Normal 12.0-16.0 Counts Include [facility] ([place] Comment on above: Performed By: #### T ROPHS, GFR, CMP, PBNP #### [place] [address] MCH (RBC) [Entitic mass] 31.4 pg High 27.0-31.2 Counts Include [address] [facility] ([place] Comment on above: Performed By: #### T ROPHS, GFR, CMP, PBNP #### [place] [address] MCHC 32.9 G/dL Low 33.0-37.0 Counts Include [address] [facility] ([place] Comment on above: Performed By: #### T ROPHS, GFR, CMP, PBNP #### [place] [id number] MCV (RBC) [Entitic vol] 95.5 fL High 80.0-94.0 [facility] ([place]) Comment on above: Performed By: #### T ROPHS, GFR, CMP, PBNP #### [address] [place] [address] Platelet 351 10 3/mcL Normal 130-400 Counts Include [address] [facility] ([place] Comment on above: Performed By: #### T ROPHS, GFR, CMP, PBNP #### [place] [address] [address] Platelet mean volume (Bld) [Entitic vol] 9.0 fL Normal 7.4-10.4 Counts Include [address] [facility] ([place] Comment on above: Performed By: #### T ROPHS, GFR, CMP, PBNP #### [place] [address] [address] RBC 4.76 10 6/mcL Normal 4.20-5.40 Counts Include [facility] ([place] Comment on above: Performed By: #### T ROPHS, GFR, CMP, PBNP #### [place] [address] [address] WBC 12.6 10 3/mcL High 4.6-10.8 Counts Include [address] [facility] ([place] Comment on above: Performed By: #### T ROPHS, GFR, CMP, PBNP #### [address] [address] [id number] 05-02-2022 Date of Onset [id number] Invalid Interpretation Code Counts Include [address] [facility] ([place] Comment on above: Performed By: #### T ROPHS, GFR, CMP, PBNP #### [place] [address] [address] Employed in Healthcare No Normal [facility] ([place] Comment on above: Performed By: #### T ROPHS, GFR, CMP, PBNP #### [place] [address] [address] First Test No [facility] ([place]) Comment on above: Performed By: #### T ROPHS, GFR, CMP, PBNP #### [place] [address] [address] Hospitalized Yes Normal Counts Include [facility] ([place] Comment on above: Performed By: #### T ROPHS, GFR, CMP, PBNP #### [place] [address] ICU No Normal Counts Include [address] [facility] ([place] Comment on above: Performed By: #### T ROPHS, GFR, CMP, PBNP #### [place] [address] Not [facility] ([place] Comment on above: Performed By: #### T ROPHS, GFR, CMP, PBNP #### [place] [address] Resides in Congregate Care Setting No [facility] ([place] Comment on above: Performed By: #### T ROPHS, GFR, CMP, PBNP #### [place] [address] SARS-CoV-2 (COVID-19) RNA IVANA+probe Ql (Unsp spec) Negative Normal Negative Counts Include [address] [facility] ([place] Comment on above: Performed By: #### T GOMEZ, GFR, CMP, PBNP #### [place] [address] SARS-CoV-2 (COVID-19) RNA IVANA+probe Ql (Unsp spec) Normal Counts Include [address] [facility] ([place] Comment on above: Result Comment: Nega tive results do not preclude SARS-CoV-2 infection and should not be used as the sole basis for patient management decisions. Negative results must be combined with clinical observations, patient history, and epidemiological information. There is a risk of false negative values resulting from improperly collected, transported, or handled specimens. There is a risk of false negative values [...] Improvement Amendments of 1988 (CLIA), 42 U.S.C. ?263a, to perform moderate and high complexity tests. COVID-19 Int Performed By: #### T GOMEZ, GFR, CMP, PBNP #### [facility] [address] [place], [place] [address] Symptomatic as Defined by CDC Yes Normal Counts Include [address] [facility] ([place] Comment on above: Performed By: #### T ROPHS, GFR, CMP, PBNP #### [facility] [address] [place], [place] [address] LABORATORYOrdered By: Gina Feliz on 05-02-2022 Blood Glucose Testing Reason Routine (05/02/22 9:38 AM) [facility] Work Phone: Glucose [Mass/Vol] 156 mg/dL Invalid Interpretation Code 82 - 115 mg/dL [facility] Work Phone: LABORATORYOrdered By: Lisa Casas on 05-02-2022 ADMITTED TO INTENSIVE CARE UNIT FOR CONDITION OF INTEREST:FIND:PT:^PATIE NT:ORD: No (05/02/22 4:25 AM) Invalid Interpretation Code AO Auto Urine SS EMPLOYED IN A HEALTHCARE SETTING:FIND:PT:^PATIEN T:ORD: No (05/02/22 4:25 AM) Invalid Interpretation Code AO Auto Urine SS FIRST TEST FOR CONDITION OF INTEREST:FIND:PT:^PATIE NT:ORD: No (05/02/22 4:25 AM) Invalid Interpretation Code AO Auto Urine SS HAS SYMPTOMS RELATED TO CONDITION OF INTEREST:FIND:PT:^PATIE NT:ORD: Yes (05/02/22 4:25 AM) Invalid Interpretation Code AO Auto Urine SS Illness or injury onset date and time 20220430 Invalid Interpretation Code AO Auto Urine SS Patient was hospitalized because of this condition Yes (05/02/22 4:25 AM) Invalid Interpretation Code AO Auto Urine SS status Not (05/02/22 4:25 AM) Invalid Interpretation Code AO Auto Urine SS RESIDES IN A CONGREGATE CARE SETTING:FIND:PT:^PATIEN T:ORD: No (05/02/22 4:25 AM) Invalid Interpretation Code AO Auto Urine SS SARS-CoV-2 (COVID-19) RNA IVANA+probe Ql (Unsp spec) Negative results do not preclude SARS-CoV-2 infection and should [...] for amplification.RUFUS SARS-CoV-2 Assay is a Real-Time reverse-transcriptase polymerase [...] to perform moderate and high complexity tests. Invalid Interpretation Code AO Auto Urine SS LABORATORYOrdered By: Jensen Manuel on 05-02-2022 Basophil, Absolute 0.1 103/mcL Invalid Interpretation Code 0.0 - 0.2 10^3/mcL AO Workflow SS Basophils/100 WBC (Bld) 0.9 % Invalid Interpretation Code 0.0 - 2.5 % AO Workflow SS Calcium [Mass/Vol] 8.8 mg/dL Invalid Interpretation Code 8.4 - 10.2 mg/dL AO ADM SS Chloride [Moles/Vol] 102 mmol/L Invalid Interpretation Code 98 - 107 mmol/L AO ADM SS CO2 [Moles/Vol] 29 mmol/L Invalid Interpretation Code 23 - 31 mmol/L AO ADM SS Creatinine [Mass/Vol] 1.09 mg/dL Invalid Interpretation Code 0.55 - 1.02 mg/dL AO ADM SS Electrolyte Balance 7.0 mEq/L Invalid Interpretation Code 4.0 - 15.0 mEq/L AO ADM SS Eosinophil, Absolute 0.1 103/mcL Invalid Interpretation Code 0.0 - 0.4 10^3/mcL AO Workflow SS Eosinophils/100 WBC (Bld) 0.8 % Invalid Interpretation Code 0.0 - 7.0 % AO Workflow SS Erythrocyte distribution width (RBC) [Ratio] 17.0 % Invalid Interpretation Code 11.5 - 14.5 % AO Workflow SS Glucose [Mass/Vol] 194 mg/dL Invalid Interpretation Code 80 - 115 mg/dL AO ADM SS Hematocrit (Bld) [Volume fraction] 45.4 % Invalid Interpretation Code 37.0 - 47.0 % AO Workflow SS Hemoglobin (Bld) [Mass/Vol] 14.9 G/dL Invalid Interpretation Code 12.0 - 16.0 G/dL AO Workflow SS Lymphocyte, Absolute 2.1 103/mcL Invalid Interpretation Code 0.8 - 3.9 10^3/mcL AO Workflow SS Lymphocytes/100 WBC (Bld) 16.7 % Invalid Interpretation Code 10.0 - 50.0 % AO Workflow SS MCH (RBC) [Entitic mass] 31.4 pg Invalid Interpretation Code 27.0 - 31.2 pg AO Workflow SS MCHC 32.9 G/dL Invalid Interpretation Code 33.0 - 37.0 G/dL AO Workflow SS MCV (RBC) [Entitic vol] 95.5 fL Invalid Interpretation Code 80.0 - 94.0 fL AO Workflow SS Monocyte distribution width Auto (Bld) [Entitic vol] 17.05 Invalid Interpretation Code 0.00 - 20.00 AO Workflow SS Comment on above: Result Comment: For ED adult patients suspected of sepsis, MDW<=20.0 does not rule out sepsis or risk of sepsis Monocyte, Absolute 0.9 103/mcL Invalid Interpretation Code 0.2 - 1.0 10^3/mcL AO Workflow SS Monocytes/100 WBC (Bld) 7.0 % Invalid Interpretation Code 1.7 - 13.0 % AO Workflow SS Natriuretic peptide.B prohormone N-Terminal [Mass/Vol] 344 pg/mL Invalid Interpretation Code 0 - 125 pg/mL AO ADM SS Neutrophil, Absolute 9.4 103/mcL Invalid Interpretation Code 2.9 - 6.2 10^3/mcL AO Workflow SS Neutrophils/100 WBC (Bld) 74.6 % Invalid Interpretation Code 37.0 - 80.0 % AO Workflow SS Platelet mean volume (Bld) [Entitic vol] 9.0 fL Invalid Interpretation Code 7.4 - 10.4 fL AO Workflow SS Platelets (Bld) [#/Vol] 351 103/mcL Invalid Interpretation Code 130 - 400 10^3/mcL AO Workflow SS Potassium [Moles/Vol] 4.1 mmol/L Invalid Interpretation Code 3.5 - 5.1 mmol/L AO ADM SS RBC (Bld) [#/Vol] 4.76 106/mcL Invalid Interpretation Code 4.20 - 5.40 10^6/mcL AO Workflow SS Sodium [Moles/Vol] 138 mmol/L Invalid Interpretation Code 136 - 145 mmol/L AO ADM SS Troponin I.cardiac DL <= 0.01 ng/mL [Mass/Vol] 13.0 ng/L Invalid Interpretation Code 0.0 - 51.4 ng/L AO ADM SS Urea nitrogen [Mass/Vol] 10 mg/dL Invalid Interpretation Code 7 - 18 mg/dL AO ADM SS Urea nitrogen/Creatinine [Mass ratio] 9 ratio Invalid Interpretation Code 7 - 27 ratio AO ADM SS WBC 12.6 103/mcL Invalid Interpretation Code 4.6 - 10.8 10^3/mcL AO Workflow SS LABORATORYOrdered By: SYSTEM SYSTEM on 05-02-2022 GFR 61 ml/min/1.73sqm Invalid Interpretation Code AO Chemistry S GFR Non- 50 ml/min/1.73sqm Invalid Interpretation Code AO Chemistry S PBNPon 05-02-2022 Natriuretic peptide B (Bld) [Mass/Vol] 344 pg/mL High 0-125 Counts Include [facility] ([place]) Comment on above: Result Comment: NT-p roBNP results of less than 300 pg/mL effectively rules out acute congestive heart failure with 99% negative predictive value. Performed By: #### T GOMEZ, GFR, CMP, PBNP #### [address] [address] TROPHSon 05-02-2022 Troponin I High Sensitivity 13.0 ng/L Normal 0.0-51.4 Counts Include [address] [facility] ([place] Comment on above: Performed By: #### T GOMEZ, GFR, CMP, PBNP #### [address] [address] XR CHEST 1 VIEWon 05-02-2022 XR CHEST 1 VIEW ORIGINAL EXAMINATION: ONE XRAY VIEW OF THE CHEST 05/02/2022 3:24 am COMPARISON: CT chest 08/05/2012, chest x-ray 08/04/2012, 04/03/2014, 10/11/2011 HISTORY: ORDERING SYSTEM PROVIDED HISTORY: Reason for Exam: Dyspnea FINDINGS: The cardiomediastinal silhouette is unremarkable. Aortic calcifications are noted. No pneumothorax or pleural effusion. No consolidation. Prominence of right infrahilar vasculature appears similar to prior exam from 09/11/2011. No significant vascular congestion. No acute osseous abnormality. Postsurgical changes of lower cervical spine. IMPRESSION: No acute radiographic process. I have personally reviewed the images of this examination and agree with the resident's findings and interpretation. Interpreted by: Jw Oglesby MD Preliminary Report By: Stephenie Farfan Electronically signed By Jw Oglesby MD Dictated Date: 05/02/2022 3:39:49 AM Prelim Date: 05/02/2022 3:43:08 AM Sign Date: 05/02/2022 5:25:03 AM Ordering Provider: EMMANUEL KILLIAN [facility] ([place]) XR ELBOW 2V AP/LAT RTon 11-3 XR ELBOW 2V AP/LAT RT * * *Final Report* * * DATE OF EXAM: Oct 10 2021 11:14AM AMARJIT [id number] - XR ELBOW 2V AP/LAT RT / PROCEDURE REASON: S42.401G-Closed fracture of right elbow with delayed healing, subsequent encount * * * * Physician Interpretation * * * * CLINICAL INDICATION: Follow-up fracture TECHNIQUE: AP and lateral radiographs of the right elbow COMPARISON: Radiograph dated August 31, 2021 FINDINGS: Small elbow joint effusion, decreased in size. Redemonstration of intra-articular fracture of the olecranon process with slight interval increase in cortication of the fracture margins though remains ununited. Stable calcifications along the origin of the common flexor tendons.. IMPRESSION: Slight interval healing of fracture of the olecranon process. 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: SRAVANI Transcribe Date/Time: Oct 10 2021 2:44P Dictated by : ERENDIRA PAREDES MD This examination was interpreted and the report reviewed and electronically signed by: ERENDIRA PAREDES MD on Oct 10 2021 2:51PM EST [id number] [facility] 09-28-[address] [facility] Telephone (AGCARDPOB ) STEVEN KOENIG ([id number]) 1955 F Date Time Provider Department 09/28/21 TRACY RAMIRES During your visit today, we recorded the following information about you: Mely Trinidad LPN 09/28/2021 10:10 AM Signed ----- Message from Trayc Ramires APRN.ANESTHESIOLOGY FACULTY sent at 09/28/2021 8:08 AM EST ----- Please call patient and notify her cholesterol is elevated above goal of 70 with LDLs at 101. Given recent PCI, I recommended increasing Lipitor to 80 mg. I will send this to her pharmacy if she is agreeable. Thank you! Marta Cui RN 09/28/2021 10:58 AM Signed Patient notified of test results and Lipitor dose change, she verbalized understanding and is agreeable. Marta Cui RN Allergies As of Date: 09/28/2021 (No Known Allergies) Date Reviewed: 09/28/2021 Reviewed by: Tracy Ramires APRN.ANESTHESIOLOGY FACULTY - Fully Assessed Reason for Visit: Results [95] Prescriptions as [...] hours as needed for wheezing/shortness of breath. - nicotine (NICODERM) 21 [...] to treat chronic pain (ICD-10 code G89.18). - venlafaxine ER (EFFEXOR XR) 150 [...] three times daily as needed for Anxiety. - clopidogrel (PLAVIX) 75 mg tablet Take 1 tablet by mouth once daily. Facility-Administered Medications as of 01/04/2022 - perflutren lipid microspheres 1.3 mL in NaCl (PF) 0.9% 10 mL injection (DEFINITY) - sodium chloride 0.9 % (flush) 10 mL (BD POSIFLUSH) Problem List As Of Date 09/28/2021 Noted Resolved Essential hypertension [I10] 12/14/2015 Recurrent major depression in partial remission*12/14/2015 Anxiety [F41.9] 12/14/2015 01/06/2021 Bipolar affective disorder, currently active (H*01/18/2016 History of alcohol abuse [F10.11] 01/18/2016 Chronic bronchitis (HCC) [J42] 07/26/2016 Hyperkalemia [E87.5] 07/27/2016 11/27/2018 Polycythemia [D75.1] 07/27/2016 11/27/2018 Spinal stenosis, lumbar region without neurogen*12/01/2018 Radiculopathy, lumbar region [M54.16] 12/01/2018 Smoker [F17.200] 03/13/2019 GERD (gastroesophageal reflux disease) [K21.9] 03/13/2019 Primary osteoarthritis of right hip [M16.11] 03/13/2019 10/06/2019 History of total right hip arthroplasty [Z96.64*03/25/2019 07/07/2020 Seasonal allergies [J30.2] 05/04/2019 Preop cardiovascular exam [Z01.810] 09/28/2019 10/06/2019 Precordial pain, short lived, 3-5 minutes, none*09/28/2019 07/07/2020 PAD (peripheral artery disease) (HCC) [I73.9] 09/28/2019 Anxiety and depression [F41.9, F32.A] 10/06/2019 Hypomagnesemia [E83.42] 10/22/2019 10/23/2019 Asthma [J45.909] 07/07/2020 07/07/2020 Prediabetes [R73.03] 02/04/2021 Chest pain [R07.9] 05/08/2021 Other chest pain [R07.89] 05/08/2021 Stenosis of carotid artery [I65.29] 05/08/2021 Mixed hyperlipidemia [E78.2] 05/08/2021 Abnormal stress test [R94.39] 08/26/2021 Dyspnea on exertion [R06.00] 08/26/2021 Coronary artery disease involving [place]*09/27/2021 Encounter Status:Closed by MELY TRINIDAD on 01/04/[address] [facility] CBC panel Auto (Bld)on 09-27 Erythrocyte distribution width (RBC) [Ratio] 15.3 % High 11.5-15.0 [facility] Comment on above: Order Comment: Speci men Type: BLOOD SPECIMEN Performed By: #### 5 8410-2 ####[facility] LABORATORYCLIA [id number] [address] STATES OF [facility] Hematocrit (Bld) [Volume fraction] 47.2 % High 36.0-46.0 [facility] Comment on above: Order Comment: Speci men Type: BLOOD SPECIMEN Performed By: #### 5 8410-2 ####[facility] LABORATORYCLIA [id number] [address] [place] Hemoglobin (Bld) [Mass/Vol] 14.5 g/dL Normal 11.5-15.5 [facility] Comment on above: Order Comment: Speci men Type: BLOOD SPECIMEN Performed By: #### 5 8410-2 ####[facility] LABORATORYCLIA [id number] [address] MCH (RBC) [Entitic mass] 31.7 pg Normal 26.0-34.0 [facility] Comment on above: Order Comment: Speci men Type: BLOOD SPECIMEN Performed By: #### 5 8410-2 ####[facility] LABORATORYCLIA [id number] [address] MCHC (RBC) [Mass/Vol] 30.7 g/dL Normal 30.5-36.0 [facility] Comment on above: Order Comment: Speci men Type: BLOOD SPECIMEN Performed By: #### 5 8410-2 ####[facility] LABORATORYCLIA [id number] [address] MCV (RBC) [Entitic vol] 103.3 fL High 80.0-100.0 [place] Comment on above: Order Comment: Speci men Type: BLOOD SPECIMEN Performed By: #### 5 8410-2 ####[facility] LABORATORYCLIA [id number] [address] Nucleated RBC (Bld) [#/Vol] 10*3/uL Normal <0.01 [facility] Comment on above: Order Comment: Speci men Type: BLOOD SPECIMEN Performed By: #### 5 8410-2 ####[facility] LABORATORYCLIA [id number] [address] Platelet mean volume (Bld) [Entitic vol] 10.0 fL Normal 9.0-12.7 [facility] [facility] Comment on above: Order Comment: Speci men Type: BLOOD SPECIMEN Performed By: #### 5 8410-2 ####[facility] LABORATORYCLIA [id number] [address] Platelets (Bld) [#/Vol] 398 10*3/uL Normal 150-400 [facility] Comment on above: Order Comment: Speci men Type: BLOOD SPECIMEN Performed By: #### 5 8410-2 ####[facility] LABORATORYCLIA [id number] [address] [facility] RBC (Bld) [#/Vol] 4.57 10*6/uL Normal 3.90-5.20 [facility] Comment on above: Order Comment: Speci men Type: BLOOD SPECIMEN Performed By: #### 5 8410-2 ####[facility] LABORATORYCLIA [id number] [address] WBC (Bld) [#/Vol] 7.70 10*3/uL Normal 3.70-11.00 [facility] Comment on above: Order Comment: Speci men Type: BLOOD SPECIMEN Performed By: #### 5 8410-2 ####[facility] LABORATORYCLIA [id number] [address] CNOVon 09-27-2021 CNOV Office Visit (AGCARDPOB) STEVEN KOENIG ([id number]) 1955 F Date Time Provider Department 09/27/21 2:00 PM TRACY RAMIRES AGCARDPORussell During your visit today, we recorded the following information about you: Pulse Blood pressure Weight Height 74/minute 142/86 62.1 kg 1.651 m Kimberlyn Renee MA 09/27/2021 1:53 PM Signed No cardiac concerns today Tracy Ramires APRN.CNP 09/28/2021 11:09 AM Signed Chief Complaint Patient presents with: Cardiology Follow Up : mixes hyperlipidemia History of Present Illness: Steven Koenig is a 66 year old female who presents for hospital follow up. She has a PMhx of CAD (s/p RODNEY to LAD and D1 08/25/2021), HLD, HTN, PAD, COPD, current smoker. She was last seen by myself on 06/12/2021 at our [place] office. Stress testing was done d/t symptoms and need for cardiac clearance. TID ratio was elevated so she was recommended a [facility] and ultimately had PCI of the LAD/D1 [...] Alcohol use disorder 01/18/2016 Dr. Angie Jones, [facility] - Anxiety 12/14/2015 - Bipolar affective disorder, currently active ([facility]) 01/18/2016 Dr. Angie Jones, [facility] - Chronic bronchitis ([facility]) 07/26/2016 - Closed skull fracture ([facility]) 1994 [facility] - Coronary artery disease - DDD (degenerative disc disease), cervical - Endometriosis 2007 - Essential hypertension 12/14/2015 - GERD (gastroesophageal reflux disease) 03/13/2019 - History of colon polyps - History of gastric ulcer 12/14/2015 - HLD (hyperlipidemia) - Injury of left facial nerve 1994 - PAD (peripheral artery disease) ([facility]) 09/28/2019 - Recurrent major depression in partial remission ([facility]) 12/14/2015 - S/P drug eluting coronary stent placement 08/25/2021 LAD and Dg2 - Spinal stenosis PAST SURGICAL HISTORY Procedure Laterality Date - APPENDECTOMY 1979 - COLONOSCOP W/ OR W/O [facility] SPEC 2010 Colonoscopy - COLONOSCOPY 04/03/2017 diverticulosis- repeat 10 years - [place] FACIAL NERVE,TOTAL Left 1989 [facility] - EGD 04/03/2017 Gastritis, duodenitis, GERD [...] MEDD to treat (more content not included)... Normal [facility] LIPID PANEL BASICon 09-27-20 21 Cholesterol [Mass/Vol] 189 mg/dL Normal <200 [facility] Comment on above: Order Comment: Speci men Type: BLOOD SPECIMEN Result Comment: <200 mg/dL, Desirable 200-239 mg/dL, Borderline high >239 mg/dL, High Performed By: #### L IPB #### [facility] CLIA [id number] [address] Cholesterol in HDL [Mass/Vol] 70 mg/dL Normal >39 [facility] Comment on above: Order Comment: Speci men Type: BLOOD SPECIMEN Result Comment: 40-5 9 mg/dL, Acceptable >59 mg/dL, High: Negative risk factor for coronary heart disease <40 mg/dL, Low: Positive risk factor for coronary heart disease Performed By: #### L IPB #### [facility] CLIA [id number] [address] Cholesterol in LDL [Mass/Vol] 101 mg/dL High <100 [facility] Comment on above: Order Comment: Speci men Type: BLOOD SPECIMEN Result Comment: <100 mg/dL, Optimal 100-129 mg/dL, Near optimal/above optimal 130-159 mg/dL, Borderline high 160-189 mg/dL, High >189 mg/dL, Very high Secondary prevention optimal LDL Cholesterol levels are recommended to be < 70 mg/dL Performed By: #### L IPB #### [facility] CLIA [id number] [address] Cholesterol in LDL/Cholesterol in HDL [Mass ratio] 1.44 {ratio} Normal <2.54 [facility] Comment on above: Order Comment: Speci men Type: BLOOD SPECIMEN Result Comment: Refe rence: 1. National Cholesterol Education Program ATP III Guideline At-A-Glance Quick Desk Reference: National Heart, Lung, and Blood [place]. National Institutes of Health. 2001: NIH Publication No. 01-3305. 2. An International Atherosclerosis Society position paper: global recommendations for the management of dyslipidemia: executive summary, Atherosclerosis. 2014: 232(2):410-413. Performed By: #### L IPB #### [facility] CLIA [id number] [address] Cholesterol in VLDL [Mass/Vol] 18 mg/dL Normal <30 [facility] Comment on above: Order Comment: Speci men Type: BLOOD SPECIMEN Performed By: #### L IPB #### [facility] CLIA [id number] [address] Cholesterol non HDL [Mass/Vol] 119 mg/dL Normal <130 [facility] Comment on above: Order Comment: Speci men Type: BLOOD SPECIMEN Result Comment: <130 mg/dL, Optimal 130-159 mg/dL, Near optimal/above optimal 160-189 mg/dL, Borderline high 190-219 mg/dL, High >219 mg/dL, Very high Secondary prevention optimal non HDL Cholesterol levels are recommended to be <100 mg/dL Performed By: #### L IPB #### [facility] CLIA [id number] [address] Cholesterol.total/Izabella sterol in HDL [Mass ratio] 2.70 {ratio} Normal <5.10 [facility] Comment on above: Order Comment: Speci men Type: BLOOD SPECIMEN Performed By: #### L IPB #### [facility] CLIA [id number] [address] FASTING TIME [address] [facility] Comment on above: Order Comment: Speci men Type: BLOOD SPECIMEN Performed By: #### L IPB #### [facility] CLIA [id number] [address] Triglyceride [Mass/Vol] 88 mg/dL Normal <150 [facility] Comment on above: Order Comment: Speci men Type: BLOOD SPECIMEN Result Comment: <150 mg/dL, Normal 150-199 mg/dL, Borderline high 200-499 mg/dL, High >499 mg/dL, Very high Performed By: #### L IPB #### [facility] CLIA [id number] [address] Frank 09-01-2021 JEOVANNY Telephone (EARNESTINE) CLARISSESTEVEN DIAZ ([id number]) 1955 F Date Time Provider Department 09/01/21 TRACY RAMIRES During your visit today, we recorded the following information about you: Tracy Ramires APRN.CNP 09/01/2021 11:37 AM Signed Had a heart cath with PCI. Please arrange office follow up in 2-4 weeks. Thank you, ANGELICA [...] to treat chronic pain (ICD-10 code G89.18). - lisinopril (ZESTRIL, PRINIVIL) 40 mg [...] twice daily on Day 8 and thereafter - traZODone (DESYREL) 100 mg tablet [...] hours as needed for Wheezing/Shortness of Breath. - clopidogrel (PLAVIX) 75 mg tablet Take 1 tablet by mouth once daily. - hydrOXYzine pamoate (VISTARIL) 25 mg capsule Take 1 capsule by mouth three times daily as needed for Anxiety. - aspirin 81 mg chewable tablet Take 1 tablet by mouth once daily. - metoprolol tartrate, short acting, (LOPRESSOR) 25 mg tablet Take 1 tablet by mouth twice daily. - clopidogrel (PLAVIX) 75 mg tablet Take 1 tablet by mouth once daily. Facility-Administered Medications as of 09/08/2021 - perflutren lipid microspheres 1.3 mL in NaCl (PF) 0.9% 10 mL injection (DEFINITY) - sodium chloride 0.9 % (flush) 10 mL (BD POSIFLUSH) Problem List As Of Date 09/01/2021 Noted Resolved Essential hypertension [I10] 12/14/2015 Recurrent major depression in partial remission*12/14/2015 Anxiety [F41.9] 12/14/2015 01/06/2021 Bipolar affective disorder, currently active (H*01/18/2016 History of alcohol abuse [F10.11] 01/18/2016 Chronic bronchitis (HCC) [J42] 07/26/2016 Hyperkalemia [E87.5] 07/27/2016 11/27/2018 Polycythemia [D75.1] 07/27/2016 11/27/2018 Spinal stenosis, lumbar region without neurogen*12/01/2018 Radiculopathy, lumbar region [M54.16] 12/01/2018 Smoker [F17.200] 03/13/2019 GERD (gastroesophageal reflux disease) [K21.9] 03/13/2019 Primary osteoarthritis of right hip [M16.11] 03/13/2019 10/06/2019 History of total right hip arthroplasty [Z96.64*03/25/2019 07/07/2020 Seasonal allergies [J30.2] 05/04/2019 Preop cardiovascular exam [Z01.810] 09/28/2019 10/06/2019 Precordial pain, short lived, 3-5 minutes, none*09/28/2019 07/07/2020 PAD (peripheral artery disease) (HCC) [I73.9] 09/28/2019 Anxiety and depression [F41.9, F32.A] 10/06/2019 Hypomagnesemia [E83.42] 10/22/2019 10/23/2019 Asthma [J45.909] 07/07/2020 07/07/2020 Prediabetes [R73.03] 02/04/2021 Chest pain [R07.9] 05/08/2021 Other chest pain [R07.89] 05/08/2021 Stenosis of carotid artery [I65.29] 05/08/2021 Mixed hyperlipidemia [E78.2] 05/08/2021 Abnormal stress test [R94.39] 08/26/2021 Dyspnea on exertion [R06.00] 08/26/2021 Encounter Status:Closed by TRACY RAMIRES on 09/01/21 [facility] CNPN Telephone (AKCRL) STEVEN KOENIG ([id number]) 1955 F Date Time Provider Department 09/01/21 GUILLERMO MCGILL During your visit today, we recorded the following information about you: Guillermo Mcgill, Customer Account Specialist 09/01/2021 10:44 AM Signed Faxed to [place] based on location. Guillermo Mcgill CEP, Cardiopulmonary Rehab [id number] Allergies As of Date: 09/01/2021 (No Known Allergies) Date Reviewed: 08/31/2021 Reviewed by: Babatunde Lomeli MD - Fully Assessed Reason for Visit: Cardiac Rehab [2456] Prescriptions as of 09/01/2021 - oxyCODONE-acetaminophen (PERCOCET) 5-325 mg tablet Take 1 tablet by mouth every 8 hours as needed. Patient has a fractured elbow and due to cardiac reasons cannot have surgery at this time, and will require greater than 30 MEDD to treat chronic pain (ICD-10 code G89.18). - lisinopril (ZESTRIL, PRINIVIL) 40 mg [...] twice daily on Day 8 and thereafter - traZODone (DESYREL) 100 mg tablet [...] hours as needed for Wheezing/Shortness of Breath. - clopidogrel (PLAVIX) 75 mg tablet Take 1 tablet by mouth once daily. - venlafaxine ER (EFFEXOR XR) 150 mg 24 hr capsule Take 1 capsule by mouth once daily. - hydrOXYzine pamoate (VISTARIL) 25 mg capsule Take 1 capsule by mouth three times daily as needed for Anxiety. - aspirin 81 mg chewable tablet Take 1 tablet by mouth once daily. - metoprolol tartrate, short acting, (LOPRESSOR) 25 mg tablet Take 1 tablet by mouth twice daily. - clopidogrel (PLAVIX) 75 mg tablet Take 1 tablet by mouth once daily. Facility-Administered Medications as of 09/01/2021 - perflutren lipid microspheres 1.3 mL in NaCl (PF) 0.9% 10 mL injection (DEFINITY) - sodium chloride 0.9 % (flush) 10 mL (BD POSIFLUSH) Problem List As Of Date 09/01/2021 Noted Resolved Essential hypertension [I10] 12/14/2015 Recurrent major depression in partial remission*12/14/2015 Anxiety [F41.9] 12/14/2015 01/06/2021 Bipolar affective disorder, currently active (H*01/18/2016 History of alcohol abuse [F10.11] 01/18/2016 Chronic bronchitis (HCC) [J42] 07/26/2016 Hyperkalemia [E87.5] 07/27/2016 11/27/2018 Polycythemia [D75.1] 07/27/2016 11/27/2018 Spinal stenosis, lumbar region without neurogen*12/01/2018 Radiculopathy, lumbar region [M54.16] 12/01/2018 Smoker [F17.200] 03/13/2019 GERD (gastroesophageal reflux disease) [K21.9] 03/13/2019 Primary osteoarthritis of right hip [M16.11] 03/13/2019 10/06/2019 History of total right hip arthroplasty [Z96.64*03/25/2019 07/07/2020 Seasonal allergies [J30.2] 05/04/2019 Preop cardiovascular exam [Z01.810] 09/28/2019 10/06/2019 Precordial pain, short lived, 3-5 minutes, none*09/28/2019 07/07/2020 PAD (peripheral artery disease) (HCC) [I73.9] 09/28/2019 Anxiety and depression [F41.9, F32.A] 10/06/2019 Hypomagnesemia [E83.42] 10/22/2019 10/23/2019 Asthma [J45.909] 07/07/2020 07/07/2020 Prediabetes [R73.03] 02/04/2021 Chest pain [R07.9] 05/08/2021 Other chest pain [R07.89] 05/08/2021 Stenosis of carotid artery [I65.29] 05/08/2021 Mixed hyperlipidemia [E78.2] 05/08/2021 Abnormal stress test [R94.39] 08/26/2021 Dyspnea on exertion [R06.00] 08/26/2021 Encounter Status:Closed by GUILLERMO MCGILL on 09/01/21 [facility] 08-26-2021 [facility] HNO ID: [id number] Author: Claude Thao MD Service: Interventional Cardiology Author Type: Physician Type: Discharge Summary Filed: 08/26/2021 12:23 PM Note Text: DISCHARGE SUMMARY PATIENT NAME: Steven Koenig ADMISSION DATE: 08/25/2021 DISCHARGE DATE: 08/26/2021 ATTENDING PHYSICIAN: Juan Ramon Pichardo MD Code Status: Not on file Highest Readmission Risk Score: 9 The 30 day readmissions risk score is derived from an internally validated risk model which evaluates patient level characteristics, utilization history, medication orders and lab results up until the day of discharge. Patients with a score of 40 or above are considered highest risk for readmission. Specific patient level drivers will be listed at the bottom of the summary. CONSULTING TEAMS DURING HOSPITALIZATION: None Treatment Team: Attending Provider: Juan Ramon Pichardo MD REASON FOR HOSPITALIZATION: Patient admitted after percutaneous coronary intervention with bifurcation stenting of the LAD and diagonal branch DIAGNOSIS: Principal Problem: Abnormal stress test POA: Yes Active Problems: Essential hypertension POA: Yes Mixed hyperlipidemia POA: Yes Dyspnea on exertion POA: Yes Resolved Problems: * No resolved hospital problems. * Sepsis Ruled Out OPERATIONS DURING HOSPITALIZATION: None PROCEDURES DURING HOSPITALIZATION: Heart Catheterization: Intervention: Drug-eluting stent LAD and diagonal HOSPITAL COURSE: No notes on file PATIENT CONDITION AT DISCHARGE: Stable DISCHARGE DISPOSITION: Home/Self Care Physical exam Frail elderly woman sitting appears comfortable no apparent distress HEENT carotid upstrokes are brisk bilateral without bruits no JVD Pulmonary: Lungs are clear diminished breath sounds noted throughout no rales wheezes rhonchi Cardiovascular: Normal S1, S2 with regular rate and rhythm. No murmurs, rubs, or gallops Extremities: Warm, well-perfused. Right radial access site is clean dry and intact with 2+ radial pulse. INFORMATION PROVIDED TO PATIENT: None WOUND/SURGICAL SITE CARE: Wound/Surgical Site Care Any bruising and bumps should disappear within 3-4 days Avoid lotions or powders Check your wound every day If the bruising expands or the bump enlarges please call your doctor Some bruising, soreness or a [...] hours as needed for wheezing/shortness of breath. Qty: 80 g Refills: 5 Comments: Generic or brand: dispense inhaler preferred by patient/insurance unless BECKY flag is selected. Associated Diagnoses:Chronic bronchitis, unspecified chronic bronchitis type (HCC) venlafaxine ER (EFFEXOR XR) 150 mg Take 150 mg by mouth once daily. Qty: 90 capsule Refills: 1 Associated Diagnoses:Recurrent major depression in partial remission (HCC) aspirin 81 mg Take 81 [...] 0 Associated Diagnoses:Closed fracture of right elbow, initial encounter !! oxyCODONE-acetaminophen (PERCOCET) 1 tablet Take 1 tablet by mouth every 4 hours as needed. Qty: 20 tablet Refills: 0 Associated Diagnoses:Closed fracture of right elbow, initial encounter varenicline (CHANTIX STARTING MONTH BOX) 0.5 mg (11)- 1 mg (42) tablet Take 0.5 mg by mouth once daily on Days 1 through 3, THEN 0.5 mg twice daily on Days 4 through 7, THEN 1 mg twice daily on Day 8 and thereafter Qty: 53 tablet Refills: 0 Associated Diagnoses:Smoker traZODone (DESYREL) 200 mg Take 200 mg by mouth daily at bedtime. Qty: 60 tablet Refills: 5 Associated Diagnoses:Recurrent major depression in partial remission (HCC) loratadine (CLARITIN) 10 mg Take 10 mg by mouth once daily. Qty: 30 tablet Refills: 5 Associated Diagnoses:Seasonal allergies omeprazole (PriLOSEC) 40 mg Take 40 mg by mouth once daily. Qty: 30 capsule Refills: 5 !! clopidogrel (PLAVIX) 75 mg Take 75 mg by mouth once daily. Qty: 90 tab (more content not included)... Normal [facility] BRIEF OP NOTon 08-25-2021 BRIEF OP NOT HNO ID: [id number] Author: Juan Ramon Pichardo MD Service: Cardiovascular Medicine Author Type: Physician Type: [...] LAD portion of the stent 3.7mm, with spiritism of blood flow, no residual stenosis. No complications. Recommend: ASA/Plavix Continue other guideline directed medical therapy Juan Ramon Kemp MD [place] Operator of Internal Medicine [facility] Section of Interventional Cardiology Traveling Inventory Associate of Structural Heart Disease [address], [address] [place] [address] Facsimile: [phone] Email: [email or web address] Normal [facility] Basic metabolic 2000 panelon 08-25-2021 Anion gap [Moles/Vol] 14 mmol/L Normal 9-18 [facility] Comment on above: Order Comment: Speci men Type: BLOOD SPECIMEN Performed By: #### 2 4321-2 ####[facility] LABORATORYCLIA [id number] [place] [address] [place] Calcium [Mass/Vol] 9.2 mg/dL Normal 8.5-10.2 [facility] Comment on above: Order Comment: Speci men Type: BLOOD SPECIMEN Performed By: #### 2 4321-2 ####[facility] LABORATORYCLIA [id number] [address] Chloride [Moles/Vol] 102 mmol/L Normal 97-105 [facility] Comment on above: Order Comment: Speci men Type: BLOOD SPECIMEN Performed By: #### 2 4321-2 ####[facility] LABORATORYCLIA [id number] [address] CO2 [Moles/Vol] 21 mmol/L Low 22-30 [facility] Comment on above: Order Comment: Speci men Type: BLOOD SPECIMEN Performed By: #### 2 4321-2 ####[facility] LABORATORYCLIA [id number] [address] Creatinine [Mass/Vol] 0.72 mg/dL Normal 0.58-0.96 [facility] Comment on above: Order Comment: Speci men Type: BLOOD SPECIMEN Performed By: #### 2 4321-2 ####[facility] LABORATORYCLIA [id number] [address] GFR/1.73 sq M.predicted MDRD (S/P/Bld) [Vol rate/Area] mL/min/{1.73_m2} Normal [facility] Comment on above: Order Comment: Speci men Type: BLOOD SPECIMEN Result Comment: >60 eGFR (Estimated GFR) Units of measure: mL/min/1.73 [...] eGFR may not accurately reflect actual GFR. Performed By: #### 2 4321-2 ####[facility] LABORATORYCLIA [id number] [address] [place] Glucose [Mass/Vol] 92 mg/dL Normal 74-99 [facility] Comment on above: Order Comment: Speci men Type: BLOOD SPECIMEN Result Comment: The [place] Diabetes Association (ADA) provides guidance for cutoff values for fasting glucose and random glucose. The ADA defines fasting as no caloric intake for at least 8 hours. Fasting plasma glucose results between 100 to 125 mg/dL indicate increased risk for diabetes (prediabetes). Fasting plasma glucose results greater than or equal to 126 mg/dL meet the criteria for diagnosis of diabetes. In the absence of unequivocal hyperglycemia, results should be confirmed by repeat testing. In a patient with classic symptoms of hyperglycemia or hyperglycemic crisis, random plasma glucose results greater than or equal to 200 mg/dL meet the criteria for diagnosis of diabetes. Reference: Standards of Medical Care in Diabetes 2016, [place] [employer] Association. Diabetes Care. 2016.39(Suppl 1). Performed By: #### 2 4321-2 ####[facility] LABORATORYCLIA [id number] [address] [place] Potassium [Moles/Vol] 4.7 mmol/L Normal 3.7-5.1 [facility] Comment on above: Order Comment: Speci men Type: BLOOD SPECIMEN Performed By: #### 2 4321-2 ####[facility] LABORATORYCLIA [id number] [address] [place] Sodium [Moles/Vol] 137 mmol/L Normal 136-144 [facility] Comment on above: Order Comment: Speci men Type: BLOOD SPECIMEN Performed By: #### 2 4321-2 ####[facility] LABORATORYCLIA [id number] [place] [address] [place] Urea nitrogen [Mass/Vol] 11 mg/dL Normal 7-21 [facility] Comment on above: Order Comment: Speci men Type: BLOOD SPECIMEN Performed By: #### 2 4321-2 ####[facility]ORATORYCLIA [id number] [address] [place] CBC panel Auto (Bld)on 08-25 Erythrocyte distribution width (RBC) [Ratio] 15.4 % High 11.5-15.0 [facility] Comment on above: Order Comment: Speci men Type: BLOOD SPECIMEN Performed By: #### 5 8410-2 #### [facility] CLIA [id number] [address] Hematocrit (Bld) [Volume fraction] 46.7 % High 36.0-46.0 [facility] Comment on above: Order Comment: Speci men Type: BLOOD SPECIMEN Performed By: #### 5 8410-2 #### [facility] CLIA [id number] [address] Hemoglobin (Bld) [Mass/Vol] 14.9 g/dL Normal 11.5-15.5 [facility] Comment on above: Order Comment: Speci men Type: BLOOD SPECIMEN Performed By: #### 5 8410-2 #### [facility] CLIA [id number] [address] MCH (RBC) [Entitic mass] 31.6 pg Normal 26.0-34.0 [facility] Comment on above: Order Comment: Speci men Type: BLOOD SPECIMEN Performed By: #### 5 8410-2 #### [facility] CLIA [id number] [address] MCHC (RBC) [Mass/Vol] 31.9 g/dL Normal 30.5-36.0 [facility] Comment on above: Order Comment: Speci men Type: BLOOD SPECIMEN Performed By: #### 5 8410-2 #### [facility] CLIA [id number] [address] MCV (RBC) [Entitic vol] 98.9 fL Normal 80.0-100.0 [place] Comment on above: Order Comment: Speci men Type: BLOOD SPECIMEN Performed By: #### 5 8410-2 #### [facility] CLIA [id number] [address] Nucleated RBC (Bld) [#/Vol] 10*3/uL Normal <0.01 [facility] Comment on above: Order Comment: Speci men Type: BLOOD SPECIMEN Performed By: #### 5 8410-2 #### [facility] CLIA [id number] [address] Platelet mean volume (Bld) [Entitic vol] 10.4 fL Normal 9.0-12.7 [facility] Comment on above: Order Comment: Speci men Type: BLOOD SPECIMEN Performed By: #### 5 8410-2 #### [facility] CLIA [id number] [address] Platelets (Bld) [#/Vol] 375 10*3/uL Normal 150-400 [facility] Comment on above: Order Comment: Speci men Type: BLOOD SPECIMEN Performed By: #### 5 8410-2 #### [facility] CLIA [id number] [address] RBC (Bld) [#/Vol] 4.72 10*6/uL Normal 3.90-5.20 [facility] Comment on above: Order Comment: Speci men Type: BLOOD SPECIMEN Performed By: #### 5 8410-2 #### [facility] CLIA [id number] [address] [address]RE[address] WBC (Bld) [#/Vol] 10.76 10*3/uL Normal 3.70-11.00 [facility] Comment on above: Order Comment: Speci men Type: BLOOD SPECIMEN Performed By: #### 5 [id number] #### [facility] CLIA [id number] [address] HISTORY PHYSICALon HISTORY PHYSICAL HNO ID: [id number] Author: Juan Ramon Pichardo MD Service: Cardiovascular Medicine Author Type: Physician Type: HANDP Filed: 08/25/2021 9:01 AM Note Text: UPDATED HANDP PRE-CARDIAC CATHETERIZATION SERVICE DATE: 08/25/2021 SERVICE TIME: 9:01 AM PHYSICAL EXAM MUST BE COMPLETED ON ADMISSION The History and Physical (completed in the past 30 days) has been reviewed and the patient has been examined. The contents accurately reflect the patient's condition with the following additions or revisions since the HANDP was completed. Examination indicates no changes. Planned Procedure: Left Heart Cath + Possible PCI Primary Indication for Procedure: Markedly Abnormal Stress Test High Risk Features: History of Prior CABG: No History of Prior PCI: No Cardiomyopathy: No Anti-ischemic Meds in Past 2 Weeks: Beta blockers Ejection Fraction: 55% HISTORY OF BLEEDING: No This HANDP can be found in the Electronic Medical Record SIGNATURE: Juan Ramon Pichardo MD PATIENT NAME: Steven Koenig DATE: August 25, 2021 TIME: 9:[address] [facility] CNPNon 08-15-2021 JEOVANNY Telephone (AGCARDPOB ) STEVEN KOENIG ([id number]) 1955 F Date Time Provider Department 08/15/21 TRACY RAMIRES During your visit today, we recorded the following information about you: Suzy Cordero RN 08/15/2021 8:11 AM Signed ----- Message from Tracy Ramires APRN.ANESTHESIOLOGY FACULTY sent at 08/15/2021 7:51 AM EDT ----- Please call patient and notify her of normal stress testing results. There is no scintigraphic evidence for inducible ischemia. EF 55% Stress ECG Conclusion: Conclusion: Normal Suzy Cordero RN 08/15/2021 8:12 AM Signed Left message on voicemail requesting pt return call for test results. Office phone number provided. AAMIR Russell APRN.CNP 08/15/2021 9:29 AM Signed Actually due to elevated TID ratio (1.4). It would be reasonable to do a C. I would like to review this with the patient when she calls back. Thank you! Suzy Cordero RN 08/15/2021 11:17 AM Signed Spoke with pt. Notified of stress test results and recommendations for cath. Pt is agreeable to cath. AAMIR Russell APRN.CNP 08/15/2021 11:27 AM Signed Spoke with the patient. She would like to go over the risks and benefits of a heart cath with me in person on Saturday during our office visit and then schedule after. Thank you, ANGELICA Sin Ma 08/15/2021 12:13 PM Signed Pt calling to see if she can be cleared to have her elbow fracture surgery prior to heart cath. She is in pain and would like to have surgery helder with ortho. Please review and advise. ZHEN Serrano APRN.CNP 08/15/2021 12:30 PM Signed I do not recommend surgery until we know her cardiac status. I can get her set up for her heart cath pretty quickly. When does she plan to have surgery? Thanks, ANGELICA Sin APRN.CNP 08/15/2021 2:20 PM Addendum Please schedule with Dr. Jenkins, Dr. Pichardo or Dr. Toure at their next available opening for heart catheterization for further assessment of elevated TID ratio on stress testing, multiple risk factors and pre op clearance. Patient has pending labs she needs to have drawn prior. Thank you, ANGELICA Sin APRN.CNP 08/15/2021 2:21 [...] type [R07.9] Pre-operative cardiovascular examination [Z01.810] Order(s):CARDIAC INDUSTRIAL ELECTRICAL ENGINEER ORDER [[id number]] Order #: [id number]: 1 CBC [[facility]] Order #: [id number] FUTURE Prescriptions as of 08/16/2021 - oxyCODONE-acetaminophen [...] twice daily on Day 8 and thereafter - traZODone (DESYREL) 100 mg tablet [...] hours as needed for Wheezing/Shortness of Breath. - clopidogrel (PLAVIX) 75 mg tablet Take 1 tablet by mouth once daily. - venlafaxine ER (EFFEXOR XR) 150 mg 24 hr capsule Take 1 capsule by mouth once daily. - hydrOXYzine pamoate (VISTARIL) 25 mg capsule Take 1 capsule by mouth three times daily as needed for Anxiety. - aspirin 81 mg chewable tablet Take 1 tablet by mouth once daily. - metoprolol tartrate, short acting, (LOPRESSOR) 25 mg tablet Take 1 tablet by mouth twice daily. - clopidogrel (PLAVIX) 75 mg tablet Take 1 tablet by mouth once daily. Facility-Administered Medications as of 08/16/2021 - perflutren lipid microspheres 1.3 mL in NaCl (PF) 0.9% 10 mL injection (DEFINITY) - sodium chloride 0.9 % (flush) 10 mL (BD POSIFLUSH) Problem List As Of Date 08/15/2021 Noted Resolved Essential hypertension [I10] 12/14/2015 Recurrent major depression i (more content not included)... Normal [facility] NM CARDIAC PERF STRESS/PHARM on 08-14-2021 NM CARDIAC PERF STRESS/PHARM * * *Final Report* * * DATE OF EXAM: Aug 14 2021 4:02PM KELI 0006 - NM CARDIAC PERF STRESS/PHARM / PROCEDURE REASON: multiple diagnoses * * * * Physician Interpretation * * * * Stress Sample Card Maker Report: [facility] Date of service: 08/14/2021 3:00:40 PM Supervising physician: Armando Galarza DO PATIENT: Name: MRS. STEVEN KOENIG Age: 66 years Gender: F The supervising physician was present during the stress procedure. Final ---- PATIENT: Name: MRS. STEVEN KOENIG Age: 66 years Gender: F CONCLUSIONS: 1. SPECT Perfusion Study: Normal. 2. There is no scintigraphic evidence for inducible ischemia. 3. No evidence of scarred myocardium. 4. Left ventricle is normal in size. The left ventricle systolic function is normal. 5. This is a low risk scan. Gated Stress FBP LVEF % 55 Prior Study Comparison Prior nuclear cardiology exam was performed on 09/09/19. Nuclear Med Report:1-Day Tc-Tetrofosmin Gated SPECT Myocardial Perfusion with Regadenoson Stress: Myocardial perfusion imaging was performed at rest 30 minutes following the IV injection of Tc-99m tetrofosmin. The patient received 0.4 mg of regadenoson, via rapid IV push, immediately followed by Tc-99m tetrofosmin IV. Gated post stress tomographic imaging was performed 30 to 60 minutes later. See administered doses below. [facility] Date of service: 08/14/2021 3:00:40 PM Indication: Dyspnea and CP - ECG uniterpretable OR unable to exercise Interpreting physician: Emil Reza MD [...] study imaging quality was deemed to be good. The following technical issues were noted: Liver [...] is no scintigraphic evidence for inducible ischemia. There is no evidence of scarring. Final ---- Stress ECG Report: [facility] Date of service: 08/14/2021 3:00:40 PM Ordering physician: TRACY RAMIRES Specialist: Grace Sagastume Panel Flow Machine Operator: Guera Fowler Stress ECG interpreting physician: Armando Galarza DO PATIENT: Name: MRS. STEVEN KOENIG Age: 66 years Gender: F Height: 165.10 cm BSA: 1.69 m? Weight: 62.60 kg BMI: 23.0 kg/m? Stress ECG Conclusion: Conclusion: Normal Stress ECG Summary: The patient's resting heart rate was 71 bpm and blood pressure was 151/72 mmHg. The test was terminated due to end of protocol. Other symptoms during the test included SOB. The maximum heart rate was 94 bpm, which is 61% of the predicted heart rate for age. Peak blood pressure was 146/80 mmHg. The double product achieved was [address]. Indication: Shortness of breath Medical History and [...] / 80 mmHg Rate Pressure Product (RPP): 40324 St (more content not included)... [facility] Frank 06-21-2021 JEOVANNY Telephone (AGCARDPOB ) STEVEN KOENIG ([id number]) 1955 F Date Time Provider Department 06/21/21 TRACY RAMIRES During your visit today, we recorded the following information about you: Tracy Alan LPN 06/21/2021 8:38 AM Signed ----- Message from Tracy Ramires APRN.ANESTHESIOLOGY FACULTY sent at 06/21/2021 7:27 AM EDT ----- Please call patient and let her know she has mild non obstructive carotid disease. Thank you! Tracy Alan LPN 06/21/2021 8:40 AM Signed I called and left a message for to call [facility] for test results. PETERSON Grover LPN 06/21/2021 2:57 PM Signed Called and left a voice mail with results per Tracy Ramires CNP instructions. Instructed patient to call office back with any questions. Diana Mahan LPN Allergies As of Date: 06/21/2021 (No Known Allergies) Date Reviewed: 06/14/2021 Reviewed by: Tracy Ramires APRN.LINDA - Fully Assessed Reason for Visit: Results [95] Prescriptions as [...] twice daily on Day 8 and thereafter - traZODone (DESYREL) 100 mg tablet [...] hours as needed for Wheezing/Shortness of Breath. - clopidogrel (PLAVIX) 75 mg tablet Take 1 tablet by mouth once daily. - venlafaxine ER (EFFEXOR XR) 150 mg 24 hr capsule Take 1 capsule by mouth once daily. - hydrOXYzine pamoate (VISTARIL) 25 mg capsule Take 1 capsule by mouth three times daily as needed for Anxiety. - aspirin 81 mg chewable tablet [...] NaCl (PF) 0.9% 10 mL injection (DEFINITY) - sodium chloride 0.9 % (flush) 10 mL (BD POSIFLUSH) Problem List As Of Date 06/21/2021 Noted Resolved Essential hypertension [I10] 12/14/2015 Recurrent major depression in partial remission*12/14/2015 Anxiety [F41.9] 12/14/2015 01/06/2021 Bipolar affective disorder, currently active (H*01/18/2016 History of alcohol abuse [F10.11] 01/18/2016 Chronic bronchitis (HCC) [J42] 07/26/2016 Hyperkalemia [E87.5] 07/27/2016 11/27/2018 Polycythemia [D75.1] 07/27/2016 11/27/2018 Spinal stenosis, lumbar region without neurogen*12/01/2018 Radiculopathy, lumbar region [M54.16] 12/01/2018 Smoker [F17.200] 03/13/2019 GERD (gastroesophageal reflux disease) [K21.9] 03/13/2019 Primary osteoarthritis of right hip [M16.11] 03/13/2019 10/06/2019 History of total right hip arthroplasty [Z96.64*03/25/2019 07/07/2020 Seasonal allergies [J30.2] 05/04/2019 Preop cardiovascular exam [Z01.810] 09/28/2019 10/06/2019 Precordial pain, short lived, 3-5 minutes, none*09/28/2019 07/07/2020 PAD (peripheral artery disease) (HCC) [I73.9] 09/28/2019 Anxiety and depression [F41.9, F32.9] 10/06/2019 Hypomagnesemia [E83.42] 10/22/2019 10/23/2019 Asthma [J45.909] 07/07/2020 07/07/2020 Prediabetes [R73.03] 02/04/2021 Chest pain [R07.9] 05/08/2021 Other chest pain [R07.89] 05/08/2021 Stenosis of carotid artery [I65.29] 05/08/2021 Mixed hyperlipidemia [E78.2] 05/08/2021 Encounter Status:Closed by DIANA MAHAN on 06/21/21 [facility] No Panel InformationOrdered By: Ccf Provider on 01-27-2021 [facility] XR Chest PA and Lateralon IMPRESSION: 1. Findings compatible with underlying emphysema. 2. Mild opacity at the left lateral base, atelectasis versus focus of bronchopneumonia in the appropriate clinical setting. Follow-up to resolution is advised. 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: PSCB Transcribe Date/Time: Jan 27 2021 11:43A Dictated by : ERENDIRA PAREDES MD This examination was interpreted and the report reviewed and electronically signed by: ERENDIRA PAREDES MD on Jan 27 2021 11:45AM [facility] DIVISION OF RADIOLOGY * * *Final Report* * * DATE OF EXAM: Jan 27 2021 11:05AM WOX 5291 - XR CHEST 2V FRONTAL/LAT / PROCEDURE REASON: Chest pain, unspecified type * * * * Physician Interpretation * * * * EXAMINATION: CHEST RADIOGRAPH (2 VIEW FRONTAL & LATERAL) CLINICAL HISTORY: Chest pain. MQ: XC2_6 EXAM DATE/TIME: 01/27/2021 11:05 AM COMPARISON: Chest x-ray dated October 22, 2019. Correlation made to CT chest dated October 23, 2019. RESULT: Lines, tubes, and devices: None. Lungs and pleura: Relative hyperlucent appearance of the upper lung zones with hyperinflated lungs compatible with underlying emphysema. Mild opacity at the left lateral base.. No lung mass. No pleural effusion. No pneumothorax. Cardiomediastinal silhouette: Stable cardiomediastinal silhouette. Bones and soft tissues: Postsurgical changes from anterior cervical fusion. Old healed rib fractures again identified. DIVISION OF RADIOLOGY Provider, [facility] - 01/27/2021 * * *Final Report* * * DATE OF EXAM: Jan 27 2021 11:05AM WOX 5291 - XR CHEST 2V FRONTAL/LAT / PROCEDURE REASON: Chest pain, unspecified type * * * * Physician Interpretation * * * * EXAMINATION: CHEST RADIOGRAPH (2 VIEW FRONTAL & LATERAL) CLINICAL HISTORY: Chest pain. MQ: XC2_6 EXAM DATE/TIME: 01/27/2021 11:05 AM COMPARISON: Chest x-ray dated October 22, 2019. Correlation made to CT chest dated October 23, 2019. RESULT: Lines, tubes, and devices: None. Lungs and pleura: Relative hyperlucent appearance of the upper lung zones with hyperinflated lungs compatible with underlying emphysema. Mild opacity at the left lateral base.. No lung mass. No pleural effusion. No pneumothorax. Cardiomediastinal silhouette: Stable cardiomediastinal silhouette. Bones and soft tissues: Postsurgical changes from anterior cervical fusion. Old healed rib fractures again identified. IMPRESSION IMPRESSION: 1. Findings compatible with underlying emphysema. 2. Mild opacity at the left lateral base, atelectasis versus focus of bronchopneumonia in the appropriate clinical setting. Follow-up to resolution is advised. 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: SRAVANI Transcribe Date/Time: Jan 27 2021 11:43A Dictated by : ERENDIRA PAREDES MD This examination was interpreted and the report reviewed and electronically signed by: ERENDIRA PAREDES MD on Jan 27 2021 11:45AM [facility] Radiology Study observation (narrative) Jeronimo contreras [facility] XR HIP BILAT 5V PEL/AP/LAT E ACH HIPon 01-27-2021 * * *Final Report* * * DATE OF EXAM: Jan 27 2021 10:42AM WOX 5353 - XR HIP SHERIN 5V PEL+ AP/LAT EA HIP / PROCEDURE REASON: Pain * * * * Physician Interpretation * * * * Indication: Low back pain radiating to the hips Comparison: X-ray pelvis and right hip 06/22/2019 A single view of the pelvis, 2 views of the right hip and 2 views of the left hip are obtained. There is no acute fracture or dislocation. There is satisfactory position of a right hip prosthesis. Left hip joint space is maintained. Vascular calcifications are noted. A vascular stent projects over the right pelvis. Impression: 1. No acute fracture or dislocation. 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: [facility] Transcribe Date/Time: Jan 27 2021 11:57A Dictated by : ANASTASIYA GIBBS MD This examination was interpreted and the report reviewed and electronically signed by: ANASTASIYA GIBBS MD on Jan 27 2021 11:58AM [facility] DIVISION OF RADIOLOGY Provider, [facility] - 01/27/2021 * * *Final Report* * * DATE OF EXAM: Jan 27 2021 10:42AM WOX 5353 - XR HIP SHERIN 5V PEL+ AP/LAT EA HIP / PROCEDURE REASON: Pain * * * * Physician Interpretation * * * * Indication: Low back pain radiating to the hips Comparison: X-ray pelvis and right hip 06/22/2019 A single view of the pelvis, 2 views of the right hip and 2 views of the left hip are obtained. There is no acute fracture or dislocation. There is satisfactory position of a right hip prosthesis. Left hip joint space is maintained. Vascular calcifications are noted. A vascular stent projects over the right pelvis. Impression: 1. No acute fracture or dislocation. 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: [facility] Transcribe Date/Time: Jan 27 2021 11:57A Dictated by : ANASTASIYA GIBBS MD This examination was interpreted and the report reviewed and electronically signed by: ANASTASIYA GIBBS MD on Jan 27 2021 11:58AM EST [facility] Radiology Study observation (narrative) Jeronimo contreras [facility] Basic Metabolic Panelon 06-2 Calcium 8.4 mg/dL Normal 8.2-10.1 [facility] Comment on above: Result Comment: Repe ated Performed By: #### H EMDF, BMP3 ####[facility] [address] [place] [address] Chloride 100 mmol/L Normal 98-109 [facility] Comment on above: Result Comment: Repe ated Performed By: #### H EMDF, BMP3 ####[facility] [address] [place] [address] Sodium 134 mmol/L Low 135-145 [facility] Comment on above: Result Comment: Repe ated Performed By: #### H EMDF, BMP3 ####[facility] [address] [address] Anion gap 7 Normal [facility] Comment on above: Performed By: #### H EMDF, BMP3 ####[facility] [address] [address] CO2 27 mmol/L Normal 21-32 [facility] Comment on above: Performed By: #### H EMDF, BMP3 ####[facility] [address] [place] [address] Creatinine 0.79 mg/dL Normal 0.55-1.40 [facility] Comment on above: Performed By: #### H EMDF, BMP3 ####[facility] [address] [place] [address] eGFR (black) mL/min/{1.73_m2} Normal >60 [facility] Comment on above: Performed By: #### H EMDF, BMP3 ####[facility] [address] [place] [address] eGFR (non-black) mL/min/{1.73_m2} Normal >60 [facility] Comment on above: Result Comment: Sour ce- MDRD equation with creatinine calibration to IDMS(NKDEP) eGFR not recommended for drug dose adjustment Performed By: #### H EMDF, BMP3 ####[facility] [address] [place] [address] Glucose mass conc 98 mg/dL Normal 70-100 [facility] Comment on above: Performed By: #### H GREY BMP3 ####[address] [place] [address] Potassium molar conc 4.6 mmol/L Normal 3.5-5.1 [facility] Comment on above: Performed By: #### H EMDF, BMP3 ####[facility] [address] [address] Urea nitrogen 20 mg/dL Normal 7-25 [facility] Comment on above: Performed By: #### H GREY BMP3 ####[facility] [address] [address] Glucose,Bedsideon 05-04-2018 Glucose mass conc 99 mg/dL Normal 70-100 [facility] Comment on above: Result Comment: Test performed by glucose meter. Results may be 10%-15% lowerthan serum/plasma values. (CLIA ID [id number]) Performed By: #### B GLU ####[facility] [address] [address] Hemogram w/ Autodiffon 05-04 Abs Baso Cnt 0.1 10*3/uL Normal 0.0-0.2 [facility] Comment on above: Performed By: #### H EMDF, BMP3 ####[facility] [address] [address] Basophils/100 WBC Auto (Bld) 1.0 % Normal 0.0-2.0 [facility] Comment on above: Performed By: #### H EMDF, BMP3 ####[facility] [address] [place] [address] Eosinophils 0.4 10*3/uL Normal 0.0-0.5 [facility] Comment on above: Performed By: #### H EMDF, BMP3 ####[facility] [address] [address] Eosinophils/100 leukocytes 4.3 % Normal 1.0-6.0 [facility] Comment on above: Performed By: #### H EMDF, BMP3 ####[address] [address] Erythrocyte distribution width Auto Ratio (RBC) 14.7 % High 11.5-14.5 [facility] Comment on above: Performed By: #### H EMDF, BMP3 ####[address] [address] Erythrocytes (RBC) 4.10 10*6/uL Normal 3.80-5.20 [facility] Comment on above: Performed By: #### H EMDF, BMP3 ####[address] [address] Granulocytes/100 WBC (Bld) 57.2 % Normal 40.0-80.0 [facility] Comment on above: Performed By: #### H EMDF, BMP3 ####[address] [address] Hematocrit (HCT) 40.2 % Normal 35.0-47.0 [facility] Comment on above: Performed By: #### H EMDF, BMP3 ####[address] [address] Hemoglobin mass conc (Bld) 13.3 g/dL Normal 11.7-16.0 [facility] Comment on above: Performed By: #### H EMDF, BMP3 ####[address] [address] Lymphocytes 2.5 10*3/uL Normal 1.0-4.3 [facility] Comment on above: Performed By: #### H EMDF, BMP3 ####[address] [address] Lymphocytes/100 leukocytes 27.6 % Normal 20.0-40.0 [facility] Comment on above: Performed By: #### H EMDF, BMP3 ####[address] [address] MCH 32.5 pg Normal 26.0-34.0 [facility] Comment on above: Performed By: #### H EMDF, BMP3 ####[address] [address] MCHC mass conc (RBC) 33.0 % Normal 32.0-36.0 [facility] Comment on above: Performed By: #### H GREY BMP3 ####[address] [address] MCV 98.2 fL High 79.0-98.0 [facility] Comment on above: Performed By: #### H GREY BMP3 ####[address] [address] Monocytes 0.9 10*3/uL High 0.0-0.8 [facility] Comment on above: Performed By: #### H GREY BMP3 ####[address] [address] Monocytes/100 leukocytes 9.9 % Normal 2.0-10.0 [facility] Comment on above: Performed By: #### H GREY BMP3 ####[address] [address] Neutrophils 5.2 10*3/uL Normal 1.8-7.0 [facility] Comment on above: Performed By: #### H GREY BMP3 ####[address] [address] Platelet mean volume (PMV) 8.8 fL Normal 7.4-10.4 [facility] Comment on above: Performed By: #### H GREY BMP3 ####[address] [address] Platelets 362 10*3/uL Normal 140-440 [facility] Comment on above: Performed By: #### H GREY BMP3 ####[address] [address] WBC (Leukocytes) 9.1 10*3/uL Normal 3.6-10.7 [facility] Comment on above: Performed By: #### H GREY BMP3 ####[address] [address] Ethanol Serum/Plasmaon 04-30 Ethanol-Serum/Plasma < 0.010 Normal 0.000-0.010 [facility] Comment on above: Result Comment: NOTE : This result is for medical treatment only. Analysis performed using non-forensic procedures. Performed By: #### H EMDF, CMP3, QWAL, ETOH4 ####[facility] [id number] [place], [place] HCG,Urine Qualon 04-30-2018 HCG.beta subunit ( test) Ql (U) Negative Normal Negative [facility] Comment on above: Result Comment: Preg ismael is the most common reason for HCG in urine, althoughchoriocarcinoma, hydatidiform mole, and certain nontropho-blastic malignancies also result in detectable urinary HCGlevels. Sensitivity = 20mIU/mL. Performed By: #### U AMAC, DRGA4, HCGUR ####[address] [place], [place] Comp Metabolic Panelon 04-29 Alanine aminotransferase (ALT) 26 U/L Normal 13-69 [facility] Comment on above: Performed By: #### H EMDF, CMP3, QWAL, ETOH4 ####[facility] [id number] [place] Alkaline phosphatase (ALP) 65 U/L Normal 38-126 [facility] Comment on above: Performed By: #### H EMDF, CMP3, QWAL, ETOH4 ####[facility] [id number] [place] Anion gap 10 Normal [facility] Comment on above: Performed By: #### H EMDF, CMP3, QWAL, ETOH4 ####[facility] [address] [place], [place] Aspartate aminotransferase (AST) 23 U/L Normal 15-46 [facility] Comment on above: Performed By: #### H EMDF, CMP3, QWAL, ETOH4 ####[facility] [address] [place], [place] Calcium 9.1 mg/dL Normal 8.4-10.2 [facility] Comment on above: Performed By: #### H EMDF, CMP3, QWAL, ETOH4 ####[address] [place], [place] CO2 24 mmol/L Normal 22-30 [facility] Comment on above: Performed By: #### H EMDF, CMP3, QWAL, ETOH4 ####[address] [place], [place] Glucose mass conc 144 mg/dL High 70-100 [facility] Comment on above: Performed By: #### H EMDF, CMP3, QWAL, ETOH4 ####[address] [place], [place] Protein 7.2 g/dL Normal 6.3-8.2 [facility] Comment on above: Performed By: #### H EMDF, CMP3, QWAL, ETOH4 ####[address] Urea nitrogen 14 mg/dL Normal 7-20 [facility] Comment on above: Performed By: #### H EMDF, CMP3, QWAL, ETOH4 ####[address] Bilirubin (total) 0.3 mg/dL Normal 0.2-1.3 [facility] Comment on above: Performed By: #### H EMDF, CMP3, QWAL, ETOH4 ####[address] [place], [place] Creatinine 0.74 mg/dL Normal 0.52-1.25 [facility] Comment on above: Performed By: #### H EMDF, CMP3, QWAL, ETOH4 ####[address] [place], [place] eGFR (black) mL/min/{1.73_m2} Normal >60 [facility] Comment on above: Performed By: #### H EMDF, CMP3, QWAL, ETOH4 ####[address] [place], [place] eGFR (non-black) mL/min/{1.73_m2} Normal >60 [facility] Comment on above: Result Comment: Sour ce- MDRD equation with creatinine calibration to IDMS(NKDEP) eGFR not recommended for drug dose adjustment Performed By: #### H EMDF, CMP3, QWAL, ETOH4 ####[facility] [place], [place] Albumin 4.4 g/dL Normal 3.5-5.0 [facility] Comment on above: Performed By: #### H EMDF, CMP3, QWAL, ETOH4 ####[address] [place], [place] Chloride 106 mmol/L Normal 98-107 [facility] Comment on above: Performed By: #### H EMDF, CMP3, QWAL, ETOH4 ####[address] [place], [place] Potassium molar conc 4.4 mmol/L Normal 3.5-5.1 [facility] Comment on above: Performed By: #### H EMDF, CMP3, QWAL, ETOH4 ####[address] [place], [place] Sodium 141 mmol/L Normal 137-145 [facility] Comment on above: Performed By: #### H EMDF, CMP3, QWAL, ETOH4 ####[facility] [place], [place] Drugs of Abuseon 04-29-2018 Cocaine, Ur Negative Normal [facility] Comment on above: Performed By: #### U AMAC, DRGA4, HCGUR ####[address] [place], [place] Phencyclidine (PCP), Ur Negative Normal [facility] Comment on above: Result Comment: The expected value for all of the drugs listedabove is Negative.The following drugs or drug groups have been screenedfor by Immunoassay at the following thresholds:Amphetamine class (1000 ng/mL), Barbiturates (200 ng/mL),Benzodiazepines (200 ng/mL), Cocaine (300 ng/mL),Methadone (300 ng/mL), Opiates (300 ng/mL),Oxycodone (100 ng/mL), and PCP (25 ng/mL).NOTE: These results are for medical treatment only.Analysis performed using non-forensic procedures. Performed By: #### U AMAC, DRGA4, HCGUR ####[address] [place], [place] Methadone, Ur Negative Normal [facility] Comment on above: Performed By: #### U AMAC, DRGA4, HCGUR ####[address] Opiates, Ur Negative Normal [facility] Comment on above: Performed By: #### U AMAC, DRGA4, HCGUR ####[address] Benzodiazepines, Ur Negative Normal [facility] Comment on above: Performed By: #### U AMAC, DRGA4, HCGUR ####[address] Amphetamines, Ur Negative Normal [facility] Comment on above: Performed By: #### U AMAC, DRGA4, HCGUR ####[address] Barbiturates, Ur Negative Normal [facility] Comment on above: Performed By: #### U AMAC, DRGA4, HCGUR ####[address] Oxycodone/Oxymorphine,U r Negative Normal [facility] Comment on above: Performed By: #### U AMAC, DRGA4, HCGUR ####[address] Hemogram w/ Autodiffon 04-29 Abs Baso Cnt 0.1 10*3/uL Normal 0.0-0.2 [facility] Comment on above: Performed By: #### H EMDF, CMP3, QWAL, ETOH4 ####[address] [place] Basophils/100 WBC Auto (Bld) 1.1 % Normal 0.0-2.0 [facility] Comment on above: Performed By: #### H EMDF, CMP3, QWAL, ETOH4 ####[address] [place], [place] Eosinophils 0.3 10*3/uL Normal 0.0-0.5 [facility] Comment on above: Performed By: #### H EMDF, CMP3, QWAL, ETOH4 ####[address] Eosinophils/100 leukocytes 3.3 % Normal 1.0-6.0 [facility] Comment on above: Performed By: #### H EMDF, CMP3, QWAL, ETOH4 ####[address] Erythrocyte distribution width Auto Ratio (RBC) 14.8 % High 11.5-14.5 [facility] Comment on above: Performed By: #### H EMDF, CMP3, QWAL, ETOH4 ####[address] Erythrocytes (RBC) 4.26 10*6/uL Normal 3.80-5.20 [facility] Comment on above: Performed By: #### H EMDF, CMP3, QWAL, ETOH4 ####[address] Granulocytes/100 WBC (Bld) 54.6 % Normal 40.0-80.0 [facility] Comment on above: Performed By: #### H EMDF, CMP3, QWAL, ETOH4 ####[address] Hematocrit (HCT) 42.5 % Normal 35.0-47.0 [facility] Comment on above: Performed By: #### H EMDF, CMP3, QWAL, ETOH4 ####[address] Hemoglobin mass conc (Bld) 14.1 g/dL Normal 11.7-16.0 [facility] Comment on above: Performed By: #### H EMDF, CMP3, QWAL, ETOH4 ####[address] Lymphocytes 3.1 10*3/uL Normal 1.0-4.3 [facility] Comment on above: Performed By: #### H EMDF, CMP3, QWAL, ETOH4 ####[address] Lymphocytes/100 leukocytes 32.8 % Normal 20.0-40.0 [facility] Comment on above: Performed By: #### H EMDF, CMP3, QWAL, ETOH4 ####[address] MCH 33.1 pg Normal 26.0-34.0 [facility] Comment on above: Performed By: #### H EMDF, CMP3, QWAL, ETOH4 ####[address] MCHC mass conc (RBC) 33.2 % Normal 32.0-36.0 [facility] Comment on above: Performed By: #### H EMDF, CMP3, QWAL, ETOH4 ####[address] MCV 99.8 fL High 79.0-98.0 [facility] Comment on above: Performed By: #### H EMDF, CMP3, QWAL, ETOH4 ####[address] Monocytes 0.8 10*3/uL Normal 0.0-0.8 [facility] Comment on above: Performed By: #### H EMDF, CMP3, QWAL, ETOH4 ####[address] Monocytes/100 leukocytes 8.2 % Normal 2.0-10.0 [facility] Comment on above: Performed By: #### H EMDF, CMP3, QWAL, ETOH4 ####[address] [place], [place] Neutrophils 5.2 10*3/uL Normal 1.8-7.0 [facility] Comment on above: Performed By: #### H EMDF, CMP3, QWAL, ETOH4 ####[address] [place], [place] Platelet mean volume (PMV) 8.5 fL Normal 7.4-10.4 [facility] Comment on above: Performed By: #### H EMDF, CMP3, QWAL, ETOH4 ####[address] [place], [place] Platelets 380 10*3/uL Normal 140-440 [facility] Comment on above: Performed By: #### H EMDF, CMP3, QWAL, ETOH4 ####[address] [place], [place] WBC (Leukocytes) 9.6 10*3/uL Normal 3.6-10.7 [facility] Comment on above: Performed By: #### H EMDF, CMP3, QWAL, ETOH4 ####[address] [place], [place] Urinalysis,Macroon 8 Bilirubin (direct) Negative Normal Negative [facility] Comment on above: Performed By: #### U AMAC, DRGA4, HCGUR ####[address] [place], [place] Ketone,Urine Negative Normal Negative [facility] Comment on above: Performed By: #### U AMAC, DRGA4, HCGUR ####[address] [place], [place] Occult Blood,Ur Negative Normal Negative [facility] Comment on above: Performed By: #### U AMAC, DRGA4, HCGUR ####[address] [place], [place] Specific [place],Urine 1.015 Normal 1.005-1.030 [facility] Comment on above: Performed By: #### U AMAC, DRGA4, HCGUR ####[address] [place], [place] Total Protein,Urine Negative Normal Negative [facility] Comment on above: Performed By: #### U AMAC, DRGA4, HCGUR ####[address] [place], [place] Urine, appearance clear Normal Clear [facility] Comment on above: Performed By: #### U AMAC, DRGA4, HCGUR ####[address] [place], [place] Urine, color yellow Normal Lt. Yellow [facility] Comment on above: Performed By: #### U AMAC, DRGA4, HCGUR ####[address] [place], [place] Urine, glucose presence NORM Normal Negative [facility] Comment on above: Performed By: #### U AMAC, DRGA4, HCGUR ####[address] [place], [place] Urine, nitrite presence Negative Normal Negative [facility] Comment on above: Performed By: #### U AMAC, DRGA4, HCGUR ####[address] [place], [place] Urine, pH 5.0 Normal 5.0-8.0 [facility] Comment on above: Performed By: #### U AMAC, DRGA4, HCGUR ####[address] [place], [place] Urine, urobilinogen NORM Normal 0-1 [facility] Comment on above: Performed By: #### U AMAC, DRGA4, HCGUR ####[address] [place], [place] WBC (Leukocytes) Negative Normal Negative [facility] Comment on above: Performed By: #### U AMAC, DRGA4, HCGUR ####[address] [place], [place] hCG Qual Pregon 04-29-2018 hCG Qual Preg QUESTIONABLE Abnormal [facility] Comment on above: Result Comment: REF RANGE:Negative .... < 3Questionable Rpt 48-72 HrPositive ..... > 10 Performed By: #### H EMDF, CMP3, QWAL, ETOH4 ####[facility] [id number] [place] [address] Vital Signs Date Time Vital Sign Value Performing Clinician Facility 03-06-2025 11:36-0400 Heart rate 79 /min TIFFANY HANSEN DO [address] [place] [address] 03-06-2025 11:36-0400 Respiratory rate 20 /min TIFFANY JADE DO [facility] 03-06-2025 11:35-0400 Body temperature 98.6 [degF] TIFFANY JADE DO [facility] 03-06-2025 11:35-0400 Diastolic Blood Pressure Non-Invasive 63 mm[Hg] TIFFANY HANSEN DO [facility] 03-06-2025 11:35-0400 Heart rate 82 /min TIFFANY JADE DO [facility] 03-06-2025 11:35-0400 Reason For Taking VItal Signs TIFFANY JADE DO [facility] 03-06-2025 11:35-0400 Respiratory rate 20 /min TIFFANY HANSEN DO [facility] 03-06-2025 11:35-0400 Systolic Blood Pressure Non-Invasive 90 mm[Hg] TIFFANY HANSEN DO [facility] 03-06-2025 08:04-0400 Heart rate 74 /min TIFFANY PABONERLY DO [facility] 03-06-2025 06:48-0400 Body temperature 98.06 [degF] TIFFANY JADE DO [facility] 03-06-2025 06:48-0400 Diastolic Blood Pressure Non-Invasive 75 mm[Hg] TIFFANY HANSEN DO [facility] 03-06-2025 06:48-0400 Heart rate 50 /min TIFFANY HANSEN DO [facility] 03-06-2025 06:48-0400 Reason For Taking VItal Signs TIFFANY HANSEN DO [facility] 03-06-2025 06:48-0400 Respiratory rate 20 /min TIFFANY HANSEN DO [facility] 03-06-2025 06:48-0400 Systolic Blood Pressure Non-Invasive 94 mm[Hg] TIFFANY HANSEN DO [facility] 03-06-2025 03:17-0400 Body temperature 97.88 [degF] TIFFANY HANSEN DO [facility] 03-06-2025 03:17-0400 Diastolic Blood Pressure Non-Invasive 61 mm[Hg] TIFFANY HANSEN DO [facility] 03-06-2025 03:17-0400 Reason For Taking VItal Signs TIFFANY HANSEN DO [facility] 03-06-2025 03:17-0400 Systolic Blood Pressure Non-Invasive 99 mm[Hg] TIFFANY HANSEN DO [facility] 03-05-2025 16:10-0400 Heart rate 79 /min TIFFANY HANSEN DO [facility] 03-05-2025 11:26-0400 Heart rate 68 /min TIFFANY HANSEN DO [facility] 03-05-2025 08:39-0400 Heart rate 75 /min TIFFANY JADE DO [facility] 03-05-2025 06:20-0400 Heart rate 81 /min TIFFANY JADE DO [facility] 03-04-2025 16:31-0400 Heart rate 90 /min TIFFANY JADE DO [facility] 03-04-2025 07:59-0400 Body height 165.1 cm TIFFANY JADE DO [address] [place] [address] 03-04-2025 07:59-0400 Body temperature 98.06 [degF] TIFFANY JADE DO [facility] 03-04-2025 07:59-0400 Body weight 58.3 kg TIFFANY JADE DO [facility] 03-04-2025 07:59-0400 Body weight 21.39 kg/m2 TIFFANY JADE DO [facility] 03-04-2025 05:51-0400 Body weight 58.3 kg TIFFANY JADE DO [facility] 12-14-2024 06:46-0500 Body height 162.[address] MILO ESTEBAN MD [facility] 12-14-2024 06:46-0500 Body temperature 97.88 [degF] DR MILO ESTEBAN MD [facility] 12-14-2024 06:46-0500 Body weight 50.[address] MILO ESTEBAN MD [facility] 12-14-2024 06:46-0500 Diastolic Blood Pressure Non-Invasive 82 mm[Hg] DR MILO ESTEBAN MD [facility] 12-14-2024 06:46-0500 Heart rate 77 /min DR MILO ESTEBAN MD [facility] 12-14-2024 06:46-0500 Respiratory rate 16 /min DR MILO ESTEBAN MD [facility] 12-14-2024 06:46-0500 Systolic Blood Pressure Non-Invasive 122 mm[Hg] DR MILO ESTEBAN MD [facility] 05-09-2023 13:16-0400 Body height 160 cm Mely Kendrick PA-C Work Phone: [facility] 05-09-2023 13:16-0400 Body weight 57.15 kg Mely Kendrick PA-C Work Phone: [facility] 05-09-2023 13:16-0400 Diastolic blood pressure 90 mm[Hg] Mely Kendrick PA-C Work Phone: [facility] 05-09-2023 13:16-0400 Heart rate 83 /min Mely Kendrick PA-C Work Phone: [facility] 05-09-2023 13:16-0400 Respiratory rate 18 /min Mely Kendrick PA-C Work Phone: [facility] 05-09-2023 13:16-0400 SaO2% (BldA) [Mass fraction] 94 % Mely Kendrick PA-C Work Phone: [facility] 05-09-2023 13:16-0400 Systolic blood pressure 140 mm[Hg] Mely Kendrick PA-C Work Phone: [facility] 05-08-2023 12:01-0400 Body weight 56.25 kg Oly Older [employer] Work Phone: [facility] 05-08-2023 12:01-0400 Diastolic blood pressure 88 mm[Hg] Oly Older [employer] Work Phone: [facility] 05-08-2023 12:01-0400 Heart rate 90 /min Oly Older [employer] Work Phone: [facility] 05-08-2023 12:01-0400 Respiratory rate 20 /min Oly Older [employer] Work Phone: [facility] 05-08-2023 12:01-0400 Systolic blood pressure 134 mm[Hg] Oly Older [employer] Work Phone: [facility] 01-07-2023 21:11-0500 Body temperature 98.6 [degF] Armando Benavides DO Work Phone: [employer] 01-07-2023 21:11-0500 Heart rate 76 /min Armando Wynncordelljules POOLE Work Phone: [employer] 01-07-2023 21:11-0500 Respiratory rate 18 /min Armando Wynngabriel Work Phone: [employer] 01-07-2023 21:11-0500 SaO2% (BldA) [Mass fraction] 94 % Armando Wynncordelljules POOLE Work Phone: [employer] 01-07-2023 20:00-0500 Diastolic blood pressure 84 mm[Hg] Armando Wynncordelljules POOLE Work Phone: [employer] 01-07-2023 20:00-0500 Systolic blood pressure 161 mm[Hg] Armando Benavides Work Phone: [employer] 01-07-2023 17:39-0500 Body height 165.1 cm Armando Wynngabriel Work Phone: [employer] 01-07-2023 17:39-0500 Body mass index (BMI) [Ratio] 21.63 kg/m2 Armando Wynngabriel Work Phone: [employer] 01-07-2023 17:39-0500 Body weight 58.97 kg Armando Kingsleygabriel Work Phone: [facility] 01-07-2023 12:34-0500 Body temperature 98.2 [degF] Dr. Ulises Hermosillo Work Phone: 9(645)611-423061 [place] [address] 01-07-2023 12:34-0500 Diastolic blood pressure 55 mm[Hg] Dr. Ulises Hermosillo Work Phone: 4(889)667-979761 [place] [address] 01-07-2023 12:34-0500 Heart rate 79 /min Dr. Ulises Hermosillo Work Phone: 7(644)479-046861 [place] [address] 01-07-2023 12:34-0500 Respiratory rate 18 /min Dr. Ulises Hermosillo Work Phone: 7(875)639-014061 [place] [address] 01-07-2023 12:34-0500 SaO2% (BldA) [Mass fraction] 90 % Dr. Ulises Hermosillo Work Phone: 4(432)987-451761 [place] [address] 01-07-2023 12:34-0500 Systolic blood pressure 121 mm[Hg] Dr. Ulises Hermosillo Work Phone: 3(206)092-078361 [place] [address] 01-07-2023 09:58-0500 Inhaled oxygen flow rate 2 L/min Dr. Ulises Hermosillo Work Phone: 1(236)499-316761 [place] [address] 01-07-2023 06:00-0500 Body mass index (BMI) [Ratio] 21.9 kg/m2 Dr. Ulises Hermosillo Work Phone: 0(116)402-971261 [place] [address] 01-07-2023 06:00-0500 Body weight 59.[address] Ulises Hermosillo Work Phone: 5(454)014-545461 [place] [address] 01-03-2023 10:39-0500 Body height 165.[address] Ulises Hermosillo Work Phone: 5(097)565-199261 [place] [address] 01-02-2023 21:43-0500 Body temperature 98.4 [degF] Dr. Ulises Hermosillo Work Phone: 2(099)699-465761 [place] [address] 01-02-2023 21:43-0500 Diastolic blood pressure 87 mm[Hg] Dr. Ulises Hermosillo Work Phone: [facility] 01-02-2023 21:43-0500 Heart rate 96 /min Dr. Ulises Hermosillo Work Phone: [facility] 01-02-2023 21:43-0500 Inhaled oxygen flow rate 2 L/min Dr. Ulises Hermosillo Work Phone: [facility] 01-02-2023 21:43-0500 Respiratory rate 24 /min Dr. lUises Hermosillo Work Phone: [facility] 01-02-2023 21:43-0500 SaO2% (BldA) [Mass fraction] 96 % Dr. Ulises Hermosillo Work Phone: [facility] 01-02-2023 21:43-0500 Systolic blood pressure 118 mm[Hg] Dr. Ulises Hermosillo Work Phone: [facility] 01-02-2023 17:54-0500 Body height 165.[address] Ulises Hermosillo Work Phone: [facility] 01-02-2023 17:54-0500 Body mass index (BMI) [Ratio] 21.8 kg/m2 Dr. Ulises Hermosillo Work Phone: [facility] 01-02-2023 17:54-0500 Body weight 59.[address] Ulises Hermosillo Work Phone: [facility] 01-01-2023 14:08-0500 Diastolic blood pressure 83 mm[Hg] Oly Older [employer] Work Phone: [facility] 01-01-2023 14:08-0500 Heart rate 85 /min Oly Older [employer] Work Phone: [facility] 01-01-2023 14:08-0500 Systolic blood pressure 170 mm[Hg] Oly Older [employer] Work Phone: [facility] 01-01-2023 13:09-0500 Body weight 58.06 kg Oly Older [employer] Work Phone: [facility] 01-01-2023 13:09-0500 Respiratory rate 22 /min Oly Older [employer] Work Phone: [facility] 01-01-2023 13:09-0500 SaO2% (BldA) [Mass fraction] 97 % Oly Older [employer] Work Phone: [facility] 12-23-2022 16:29-0500 Diastolic Blood Pressure Non-Invasive [address] JOSE ROBERTO COMBS MD [facility] 12-23-2022 16:29-0500 Heart rate 84 /min DR JOSE ROBERTO COMBS MD [facility] 12-23-2022 16:29-0500 Respiratory rate 16 /min DR JOSE ROBERTO COMBS MD [facility] 12-23-2022 16:29-0500 Systolic Blood Pressure Non-Invasive [address] JOSE ROBERTO COMBS MD [facility] 12-23-2022 14:43-0500 Diastolic Blood Pressure Non-Invasive [address] JOSE ROBERTO COMBS MD [facility] 12-23-2022 14:43-0500 Heart rate 82 /min DR JOSE ROBERTO COMBS MD [facility] 12-23-2022 14:43-0500 Respiratory rate 18 /min DR JOSE ROBERTO COMBS MD [facility] 12-23-2022 14:43-0500 Systolic Blood Pressure Non-Invasive [address] JOSE ROBERTO COMBS MD [facility] 12-23-2022 13:50-0500 Body temperature 96.98 [degF] DR JOSE ROBERTO COMBS MD [facility] 12-23-2022 13:50-0500 Diastolic Blood Pressure Non-Invasive [address] JOSE ROBERTO COMBS MD [facility] 12-23-2022 13:50-0500 Heart rate 89 /min DR JOSE ROBERTO COMBS MD [facility] 12-23-2022 13:50-0500 Respiratory rate 18 /min DR JOSE ROBERTO COMBS MD [facility] 12-23-2022 13:50-0500 Systolic Blood Pressure Non-Invasive [address] JOSE ROBERTO COMBS MD [facility] 11-26-2022 12:48-0500 Body weight 57.61 kg Isauro Asher MD Work Phone: [facility] 11-26-2022 12:48-0500 Diastolic blood pressure 84 mm[Hg] Isauro Asher MD Work Phone: [facility] 11-26-2022 12:48-0500 Heart rate 98 /min Isauro Asher MD Work Phone: [facility] 11-26-2022 12:48-0500 Respiratory rate 20 /min Isauro Asher MD Work Phone: [facility] 11-26-2022 12:48-0500 SaO2% (BldA) [Mass fraction] 99 % Isauro Asher MD Work Phone: [facility] 11-26-2022 12:48-0500 Systolic blood pressure 120 mm[Hg] Isauro Asher MD Work Phone: [facility] 10-26-2022 19:30-0500 Diastolic Blood Pressure Non-Invasive 93 1 JEOVANY TAYLOR MD [facility] 10-26-2022 19:30-0500 Heart rate 97 /min JEOVANY TAYLOR MD [facility] 10-26-2022 19:30-0500 Respiratory rate 20 /min JEOVANY TAYLOR MD [facility] 10-26-2022 19:30-0500 Systolic Blood Pressure Non-Invasive 167 1 JEOVANY TAYLOR MD [facility] 10-26-2022 19:00-0500 Diastolic Blood Pressure Non-Invasive 92 1 JEOVANY TAYLOR MD [facility] 10-26-2022 19:00-0500 Heart rate 93 /min JEOVANY TAYLOR MD [facility] 10-26-2022 19:00-0500 Respiratory rate 18 /min JEOVANY TAYLOR MD [facility] 10-26-2022 18:37-0500 Heart rate 94 /min JEOVANY TAYLOR MD [facility] 10-26-2022 18:37-0500 Respiratory rate 22 /min JEOVANY TAYLOR MD [facility] 10-26-2022 18:31-0500 Diastolic Blood Pressure Non-Invasive 82 1 JEOVANY TAYLOR MD [facility] 10-26-2022 18:31-0500 Systolic Blood Pressure Non-Invasive 153 1 JEOVANY TAYLOR MD [facility] 10-26-2022 16:25-0500 Body temperature 96.8 [degF] JEOVANY TAYLOR MD [facility] 10-02-2022 10:02-0500 Body height 162.1 cm Doron Self DO Work Phone: [facility] 10-02-2022 10:02-0500 Body weight 58.97 kg Doron Self DO Work Phone: [facility] 10-02-2022 10:02-0500 Diastolic blood pressure 87 mm[Hg] Doron Self DO Work Phone: [facility] 10-02-2022 10:02-0500 Heart rate 86 /min Doron Self DO Work Phone: [facility] 10-02-2022 10:02-0500 SaO2% (BldA) [Mass fraction] 96 % Doron Self DO Work Phone: [facility] 10-02-2022 10:02-0500 Systolic blood pressure 155 mm[Hg] Doron Self DO Work Phone: [facility] 09-05-2022 16:28-0400 Body weight 59.88 kg Ulises Hermosillo MD Work Phone: [facility] 09-05-2022 16:28-0400 Diastolic blood pressure 82 mm[Hg] Ulises Hermosillo MD Work Phone: [facility] 09-05-2022 16:28-0400 Heart rate 95 /min Ulises Hermosillo MD Work Phone: [facility] 09-05-2022 16:28-0400 SaO2% (BldA) [Mass fraction] 98 % Ulises Hermosillo MD Work Phone: [facility] 09-05-2022 16:28-0400 Systolic blood pressure 132 mm[Hg] Ulises Hermosillo MD Work Phone: [facility] 08-31-2022 13:22-0400 Body weight 58.51 kg Oly Older [employer] Work Phone: [facility] 08-31-2022 13:22-0400 Diastolic blood pressure 82 mm[Hg] Oly Older [employer] Work Phone: [facility] 08-31-2022 13:22-0400 Heart rate 86 /min Oly Older [employer] Work Phone: [facility] 08-31-2022 13:22-0400 Respiratory rate 18 /min Oly Older [employer] Work Phone: [facility] 08-31-2022 13:22-0400 Systolic blood pressure 125 mm[Hg] Oly Older [employer] Work Phone: [facility] 07-31-2022 14:17-0400 Body weight 60.33 kg Nicole Kenny APRN.ANESTHESIOLOGY FACULTY Work Phone: [facility] 07-31-2022 14:17-0400 Diastolic blood pressure 82 mm[Hg] Nicole Kenny APRN.ANESTHESIOLOGY FACULTY Work Phone: [facility] 07-31-2022 14:17-0400 Heart rate 89 /min Nicole Kenny APRN.ANESTHESIOLOGY FACULTY Work Phone: [facility] 07-31-2022 14:17-0400 SaO2% (BldA) [Mass fraction] 98 % Nicole Kenny APRN.ANESTHESIOLOGY FACULTY Work Phone: [facility] 07-31-2022 14:17-0400 Systolic blood pressure 148 mm[Hg] Nicole Kenny APRN.ANESTHESIOLOGY FACULTY Work Phone: [facility] 06-06-2022 10:11-0400 Body height 162.1 cm Margaret Kasper MD Work Phone: [facility] 06-06-2022 10:11-0400 Body weight 58 kg Margaret Kasper MD Work Phone: [facility] 06-06-2022 10:11-0400 Diastolic blood pressure 84 mm[Hg] Margaret Kasper MD Work Phone: [facility] 06-06-2022 10:11-0400 Heart rate 77 /min Margaret Kasper MD Work Phone: [facility] 06-06-2022 10:11-0400 SaO2% (BldA) [Mass fraction] 96 % Margaret Kasper MD Work Phone: [facility] 06-06-2022 10:11-0400 Systolic blood pressure 173 mm[Hg] Margaret Kasper MD Work Phone: [facility] 05-11-2022 13:40-0400 Body weight 58.06 kg Ulises Hermosillo MD Work Phone: [facility] 05-11-2022 13:40-0400 Diastolic blood pressure 78 mm[Hg] Ulises Hermosillo MD Work Phone: [facility] 05-11-2022 13:40-0400 Heart rate 99 /min Ulises Hermosillo MD Work Phone: [facility] 05-11-2022 13:40-0400 Respiratory rate 24 /min Ulises Hermosillo MD Work Phone: [facility] 05-11-2022 13:40-0400 SaO2% (BldA) [Mass fraction] 95 % Ulises Hermosillo MD Work Phone: [facility] 05-11-2022 13:40-0400 Systolic blood pressure 118 mm[Hg] Ulises Hermosillo MD Work Phone: [facility] 05-05-2022 10:56-0400 Respiratory rate 16 /min DR BETINA GODDARD MD [facility] 05-05-2022 10:48-0400 Body temperature 97.7 [degF] DR BETINA GODDARD MD [facility] 05-05-2022 10:48-0400 Diastolic blood pressure 75 mm[Hg] DR BETINA GODDARD MD [facility] 05-05-2022 10:48-0400 Heart rate 76 /min DR BETINA GODDARD MD [facility] 05-05-2022 10:48-0400 Reason For Taking VItal Signs DR BETINA GODDARD MD [facility] 05-05-2022 10:48-0400 Respiratory rate 16 /min DR BETINA GODDARD MD [facility] 05-05-2022 10:48-0400 Systolic blood pressure 116 mm[Hg] DR BETINA GODDARD MD [facility] 05-05-2022 07:33-0400 Body temperature 97.88 [degF] DR BETINA GODDARD MD [address] [place] [id number] 05-05-2022 07:33-0400 Diastolic blood pressure 71 mm[Hg] DR BETINA GODDARD MD [address] [place] [address] 05-05-2022 07:33-0400 Heart rate 71 /min DR BETINA GODDARD MD [address] [place] [id number] 05-05-2022 07:33-0400 Mean blood pressure 88 mm[Hg] DR BETINA GODDARD MD [facility] 05-05-2022 07:33-0400 Reason For Taking VItal Signs DR BETINA GODDARD MD [facility] 05-05-2022 07:33-0400 Respiratory rate 16 /min DR BETINA GODDARD MD [facility] 05-05-2022 07:33-0400 Systolic blood pressure 122 mm[Hg] DR BETINA GODDARD MD [facility] 05-05-2022 06:43-0400 Heart rate 77 /min DR BETINA GODDARD MD [facility] 05-04-2022 23:22-0400 Diastolic blood pressure 64 mm[Hg] DR BETINA GODDARD MD [facility] 05-04-2022 23:22-0400 Systolic blood pressure 124 mm[Hg] DR BETINA GODDARD MD [facility] 05-04-2022 20:59-0400 Body temperature 98.42 [degF] DR BETINA GODDARD MD [address] [place] [id number] 05-04-2022 20:59-0400 Heart rate 73 /min DR BETINA GODDARD MD [address] [place] [id number] 05-04-2022 14:47-0400 Mean blood pressure 92 mm[Hg] DR BETINA GODDARD MD [facility] 05-04-2022 14:47-0400 Reason For Taking VItal Signs DR BETINA GODDARD MD [facility] 05-04-2022 01:04-0400 Heart rate 81 /min DR BETINA GODDARD MD [facility] 05-04-2022 01:04-0400 Mean blood pressure 85 mm[Hg] DR BETINA GODDARD MD [facility] 05-03-2022 19:06-0400 Heart rate 94 /min DR BETINA GODDARD MD [facility] 05-03-2022 14:51-0400 Heart rate 82 /min DR BETINA GODDARD MD [facility] 05-02-2022 09:53-0400 Body height 165.[address] BETINA GODDARD MD [facility] 05-02-2022 09:53-0400 Body weight [address] BETINA GODDARD MD [facility] 05-02-2022 09:53-0400 Body weight 22.01 kg/m2 DR BETINA GODDARD MD [facility] 05-02-2022 06:28-0400 Diastolic blood pressure 86 mm[Hg] EMMANUEL FROMMELT DO [facility] 05-02-2022 06:28-0400 Heart rate 92 /min EMMANUEL FROMMELT DO [facility] 05-02-2022 06:28-0400 Respiratory rate 20 /min EMMANUEL FROMMELT DO [facility] 05-02-2022 06:28-0400 Systolic blood pressure 131 mm[Hg] EMMANUEL FROMMELT DO [facility] 05-02-2022 04:25-0400 Diastolic blood pressure 82 mm[Hg] EMMANUEL FROMMELT DO [facility] 05-02-2022 04:25-0400 Heart rate 95 /min EMMANUEL FROMMELT DO [facility] 05-02-2022 04:25-0400 Mean blood pressure 98 mm[Hg] EMMANUEL FROMMELT DO [facility] 05-02-2022 04:25-0400 Respiratory rate 22 /min EMMANUEL FROMMELT DO [facility] 05-02-2022 04:25-0400 Systolic blood pressure 129 mm[Hg] EMMANUEL FROMMELT DO [facility] 05-02-2022 03:42-0400 Diastolic blood pressure 84 mm[Hg] EMMANUEL FROMMELT DO [facility] 05-02-2022 03:42-0400 Heart rate 98 /min EMMANUEL THOMPSONT DO [facility] 05-02-2022 03:42-0400 Mean blood pressure 99 mm[Hg] EMMANUEL THOMPSONT DO [facility] 05-02-2022 03:42-0400 Respiratory rate 24 /min EMMANUEL THOMPSONT DO [facility] 05-02-2022 03:42-0400 Systolic blood pressure 130 mm[Hg] EMMANUEL SHAIKHMELT DO [facility] 05-02-2022 03:12-0400 Body temperature 98.24 [degF] EMMANUEL FROMMELT DO [facility] 05-02-2022 03:12-0400 Heart rate 130 /min EMMANUEL FROMMELT DO [facility] 05-02-2022 03:11-0400 Heart rate 124 /min EMMANUEL KILLIAN DO [facility] 04-30-2022 15:40-0400 Body weight 57.61 kg Tracy Ramires APRN.ANESTHESIOLOGY FACULTY Work Phone: [facility] 04-30-2022 15:40-0400 Diastolic blood pressure 75 mm[Hg] Tracy Ramires [employer]EST[employer]ESIOLOGY [employer]AC[employer] Work Phone: [facility] 04-30-2022 15:40-0400 Heart rate 83 /min Tracy Ramires APRN.ANESTHESIOLOGY FACULTY Work Phone: [facility] 04-30-2022 15:40-0400 Systolic blood pressure 138 mm[Hg] Tracy Ramires APRN.ANESTHESIOLOGY FACULTY Work Phone: [facility] 03-13-2022 13:59-0400 Body height 165.1 cm Nicole Kenny APRN.ANESTHESIOLOGY FACULTY Work Phone: [facility] 03-13-2022 13:59-0400 Body weight 60.92 kg Nicole Kenny APRN.ANESTHESIOLOGY FACULTY Work Phone: [facility] 03-13-2022 13:59-0400 Diastolic blood pressure 76 mm[Hg] Nicole Kenny APRN.ANESTHESIOLOGY FACULTY Work Phone: [facility] 03-13-2022 13:59-0400 Heart rate 81 /min Nicole Kenny APRN.ANESTHESIOLOGY FACULTY Work Phone: [facility] 03-13-2022 13:59-0400 SaO2% (BldA) [Mass fraction] 96 % Nicole Kenny APRN.ANESTHESIOLOGY FACULTY Work Phone: [facility] 03-13-2022 13:59-0400 Systolic blood pressure 157 mm[Hg] Nicole Kenny APRN.ANESTHESIOLOGY FACULTY Work Phone: [facility] Encounters Encounter Date Encounter Type Care Provider Facility Start: 07-13-2025 ambulatory Ulises Cervantes ty:[facility] Start: 07-09-2025 End: 07-12-2025 Emergency department patient visit ARLEN STRONG [employer] [facility] Facility:[facility] Start: 07-09-2025 End: 07-12-2025 Observation ARLEN STRONG [employer] Start: 06-12-2025 End: 06-15-2025 Evaluation and management of inpatient DR JAE LUCIANO MD [facility] Start: 06-12-2025 End: 06-12-2025 Emergency department patient visit BRIAN AMOS DO [facility] Start: 05-16-2025 End: 05-24-2025 Evaluation and management of inpatient GWYN FERRARO [employer] Start: 03-05-2025 ambulatory EMMA DIBEN Facility:[facility] Start: 03-04-2025 End: 03-06-2025 Emergency department patient visit DR LEAH KHAN DO Facility:[facility] Start: 03-04-2025 End: 03-06-2025 Observation TIFFANY HANSEN DO [facility] Start: 02-19-2025 ambulatory EMMA M BERNICE DO Facil ity:A Start: 02-19-2025 End: 02-20-2025 Evaluation and management of inpatient EMMA DITCHEY Facility:[facility] Start: 02-03-2025 End: 02-03-2025 ambulatory EMMA DITCHEY Facility:[facility] Start: 12-25-2024 End: 12-25-2024 ambulatory EMMA DITCHEY Facility:[facility] Start: 12-25-2024 End: 12-25-2024 Patient encounter procedure XAVIER GONZALEZ MD [facility] Start: 12-14-2024 End: 12-14-[address] MILO ESTEBAN MD Facility: Start: 12-14-2024 End: 12-14-[address] MILO ESTEBAN MD [facility] Start: 12-11-2024 End: 12-11-2024 ambulatory EMMA QUEEN Facility:[facility] Start: 12-11-2024 End: 12-11-2024 Patient encounter procedure XAVIER GONZALEZ MD [facility] Start: 10-23-2024 End: 10-27-[address] ULISES HERMOSILLO MD Facility:[facility] Start: 10-23-2024 End: 10-27-2024 Outreach Lab EMMA De La O EMBERBEN DO [facility] Start: 01-24-2024 Refill No Pcp [employer] [facility] [place] Comment on above: Refill Request Start: 12-23-2023 Refill Ulises ram MD Work Phone: [facility] [place] Comment on above: Refill Request Start: 10-18-2023 Refill Ulises ram MD Work Phone: [facility] [place] Comment on above: Refill Request Start: 09-25-2023 Telephone encounter Ulises cheng MD Work Phone: [facility] [place] Comment on above: Medication Problem Start: 06-13-2023 Telephone encounter [facility] Provider Renzo silver Management Comment on above: Future Appointment Start: 06-10-2023 Refill Ulises ram MD Work Phone: [facility] [place] Comment on above: Refill Request Medication clarifica tion Start: 06-06-2023 Refill Tracymehreen Joyner y [employer]ESTHESIOLOGY FACULT[employer] Work Phone: Cardiology Comment on above: Refill Request Start: 05-28-2023 Orders Only Fifi Price er [employer]ESIOLOGY FAC[employer] Work Phone: Pulmonary Medicine Comment on above: Encounter for screen ing for lung cancer (Primary Dx); Tobacco use current Start: 05-10-2023 Telephone encounter Ulises cheng MD Work Phone: [facility] [place] Comment on above: Results Start: 05-09-2023 End: 05-09-2023 ambulatory MELY GRIFFIN Facility:[facility] Start: 05-09-2023 End: 05-09-2023 Patient encounter procedure Mely Griffin PA-C Work Phone: Pulmonary Medicine Comment on above: Stage 3 severe COPD by GOLD classification (HCC) (Primary Dx); Cigarette smoker; Lung nodules Start: 05-08-2023 End: 05-09-2023 ambulatory OLY OLDER Facility:[facility] Start: 05-08-2023 End: 05-08-2023 Subsequent hospital visit by physician Xr [facility] [place] Work Phone: Radiology Comment on above: Chronic midline low back pain with sciatica, sciatica laterality unspecified [M54.40, G89.29] Start: 05-08-2023 End: 05-08-2023 Patient encounter procedure Oly Smith [employer]ESTHESIOLOGY FACULTY Work Phone: [facility] [place] Comment on above: Chronic midline low back pain with sciatica, sciatica laterality unspecified (Primary Dx); Lesion of left ear; Essential hypertension; Mixed hyperlipidemia; Chronic bronchitis, unspecified chronic bronchitis type (HCC); Recurrent major depression in partial remission (HCC); Coronary artery disease involving [place] coronary artery of [place] heart without angina pectoris Start: 04-16-2023 ambulatory Melissa Vital MA [facility] Comment on above: Population Health Na vigation Outreach ([facility] Start: 04-02-2023 End: 04-02-2023 ambulatory DORON SELF Facility:[facility] Start: 02-26-2023 Refill Isauro Asher MD Work Phone: Pulmonary Medicine Comment on above: Refill Request Start: 01-07-2023 End: 01-07-2023 Emergency department patient visit ARMANDO BENAVIDES [facility] Start: 01-07-2023 End: 01-07-2023 Emergency department patient visit Armando Smith Kennedy POOLE Work Phone: [facility] Emergency Department Comment on above: Dehydration (Primary Dx) Start: 01-06-2023 Non-patient / Non-visit Dr. Amie Hermosillo Work Phone: [facility] Inpatient Physicians Start: 01-05-2023 Non-patient / Non-visit Dr. Amie Hermosillo Work Phone: [facility] Start: 01-04-2023 Non-patient / Non-visit Dr. Amie Hermosillo Work Phone: [facility] Start: 01-04-2023 Non-patient / Non-visit Dr. Amie Hermosillo Work Phone: [facility] Start: 01-03-2023 Non-patient / Non-visit Dr. Amie Hermosillo Work Phone: [facility] Start: 01-02-2023 Non-patient / Non-visit Dr. Amie Hermosillo Work Phone: [facility] Start: 01-02-2023 End: 01-07-2023 Evaluation and management of inpatient Dr. Ulises Hermosillo Work Phone: [facility] Start: 01-01-2023 End: 01-02-2023 [facility] Facility:[facility] Start: 01-01-2023 End: 01-01-2023 Patient encounter procedure Oly Older [employer]ANESTHESIOLOGY FACULTY Work Phone: [facility] [place] Comment on above: Alcohol withdrawal s yndrome without complication (HCC) (Primary Dx) Start: 01-01-2023 Telephone encounter Diana delarosa MAIL ROOM Work Phone: Adult Psychology Comment on above: Behavioral Health So cial Work Start: 01-01-2023 End: 01-01-2023 Subsequent hospital visit by physician Xr [facility] [place] Work Phone: Radiology Comment on above: Hemoptysis [R04.2] Start: 12-23-2022 End: 12-23-2022 Emergency department patient visit JOSE ROBERTO COMBS MD Facility:B Start: 12-23-2022 End: 12-23-2022 Emergency department patient visit DR JOSE ROBERTO COMBS MD [facility] Start: 12-14-2022 Refill Ulises ram MD Work Phone: [facility] Comment on above: Refill Request Start: 11-26-2022 End: 11-26-2022 ambulatory ISAURO ASHER Facility:[facility] Start: 11-26-2022 End: 11-26-2022 Patient encounter procedure Isauro Asher MD Work Phone: Pulmonary Medicine Comment on above: Hemoptysis (Primary Dx); Stage 3 severe COPD by GOLD classification ([facility]); Cigarette smoker Start: 10-26-2022 End: 10-26-2022 [facility] Start: 10-26-2022 End: 10-26-2022 Emergency department patient visit JEOVANY TAYLOR MD [facility] Start: 10-02-2022 End: 10-02-2022 Patient encounter procedure Doron Self DO Work Phone: Vascular Surgery Comment on above: PAD (peripheral daxa ry disease) ([facility]) Start: 09-21-2022 Telephone encounter Doron Self DO Work Phone: Vasculary Surgery Comment on above: Patient Question Start: 09-19-2022 Telephone encounter Doron Self DO Work Phone: Vascular Surgery Comment on above: Orders Start: 09-05-2022 End: 09-05-2022 Patient encounter procedure Ulises Hermosillo MD Work Phone: [facility] [place] Comment on above: Thrush (oral) (Prima ry Dx); Prediabetes; Essential hypertension Start: 09-05-2022 ambulatory Ulises ram MD Work Phone: [facility] [place] Comment on above: Mouth/Lip Problem Start: 08-31-2022 End: 08-31-2022 Patient encounter procedure Olysky Smith [employer]ESIOLOGY FAC[employer] Work Phone: [facility] [place] Comment on above: Situational anxiety (Primary Dx); Allergic conjunctivitis of both eyes; Recurrent major depression in partial remission (HCC); Essential hypertension; Coronary artery disease involving [place] coronary artery of [place] heart without angina pectoris; Chronic bronchitis, unspecified chronic bronchitis type (HCC); Encounter for immunization; Mixed hyperlipidemia; Lung nodule; Screening for osteoporosis; Asymptomatic menopause Start: 08-13-2022 Telephone encounter Ulises cheng MD Work Phone: [facility] [place] Comment on above: Patient Update Start: 08-02-2022 Telephone encounter Doron Self DO Work Phone: Vascular Surgery Comment on above: Appointment Start: 07-31-2022 End: 07-31-2022 Patient encounter procedure Nicole Kimimarcelle Kenny [employer]ESIOLOGY [employer]AC[employer] Work Phone: Pulmonary Medicine Comment on above: Lung nodules (Primar y Dx); Current smoker Start: 07-26-2022 ambulatory UNKNOWN PROVIDER Facili ty:[facility] Start: 07-20-2022 Refill Ulises ram MD Work Phone: [facility] [place] Comment on above: Refill Request Start: 07-13-2022 Telephone encounter Doron Self DO Work Phone: Vascular Surgery Comment on above: Appointment Start: 07-09-2022 End: 07-09-2022 ambulatory Respiratory Therapist [facility] Work Phone: Pulmonary Medicine Comment on above: Arrived Start: 07-09-2022 End: 07-09-2022 Patient encounter procedure Respiratory Therapist [facility] Work Phone: [facility] Start: 07-06-2022 Telephone encounter Margaret Kasper MD Work Phone: Pulmonary Medicine Comment on above: Orders Start: 06-14-2022 Refill Ulises ram MD Work Phone: [facility] [place] Comment on above: Refill Request Start: 06-06-2022 End: 06-06-2022 ambulatory Pulm Work Phone: Pulmonary Medicine Comment on above: Spirometry Start: 06-06-2022 End: 06-06-2022 Patient encounter procedure Pulm Fct Lab [facility] Work Phone: [facility] Comment on above: Asthma-COPD overlap syndrome (HCC) (Primary Dx); Wheezing; Smoking Start: 06-04-2022 Telephone encounter Ulises cheng MD Work Phone: [facility] [place] Comment on above: Aerochamber spacer Start: 05-31-2022 Telephone encounter Ulises cheng MD Work Phone: [facility] [place] Comment on above: Orders Start: 05-30-2022 Orders Only Nicole lang [employer]ESTHESIOLOGY FAC[employer] Work Phone: Pulmonary Medicine Comment on above: Tobacco use disorder (Primary Dx) Smoker (Primary Dx); Encounter for screening for malignant neoplasm of lung Start: 05-28-2022 Refill Tracy kirkland [employer]ESTHESIOLOGY FACULTY Work Phone: Cardiology Comment on above: Refill Request Start: 05-25-2022 Refill Ulises ram MD Work Phone: [facility] [place] Comment on above: Refill Request Start: 05-23-2022 Telephone encounter Tracy Ramires [employer]ANESTHESIOLOGY FACULTY Work Phone: Cardiology Comment on above: Results Start: 05-21-2022 End: 05-21-2022 Patient encounter procedure Echocardiogram Wstr Work Phone: Cardiology Comment on above: DIAZ (dyspnea on exer tion) Start: 05-11-2022 End: 05-11-2022 Patient encounter procedure Ulises Hermosillo MD Work Phone: [facility] [place] Comment on above: Chronic bronchitis, unspecified chronic bronchitis type (HCC) (Primary Dx); Recurrent major depression in partial remission (HCC); Gastroesophageal reflux disease, unspecified whether esophagitis present; Need for vaccination; Bipolar affective disorder, current episode mixed, current episode severity unspecified (HCC); PAD (peripheral artery disease) (HCC) Start: 05-07-2022 Refill Ulises ram MD Work Phone: [facility] [place] Comment on above: Refill Request Start: 05-02-2022 End: 05-05-2022 Evaluation and management of inpatient BETINA GODDARD MD Facility:A Start: 05-02-2022 End: 05-05-2022 Evaluation and management of inpatient DR BETINA GODDARD MD [facility] Start: 05-02-2022 End: 05-02-2022 Emergency department patient visit [facility] Facility:B Start: 05-02-2022 End: 05-02-2022 Emergency department patient visit [facility] DO [facility] Start: 04-30-2022 End: 04-30-2022 Patient encounter procedure Tracy Ramires [employer]ANESTHESIOLOGY FACULT[employer] Work Phone: Cardiology Comment on above: DIAZ (dyspnea on exer tion) (Primary Dx); Essential hypertension; Coronary artery disease involving [place] coronary artery of [place] heart without angina pectoris; Mixed hyperlipidemia; Smoker; Stenosis of carotid artery, unspecified laterality Start: 04-03-2022 Refill Ulises ram MD Work Phone: [facility] [place] Comment on above: Refill Request Start: 03-16-2022 Refill Eri Fu APRN.ANESTHESIOLOGY FACULTY Work Phone: Pulmonary Medicine Comment on above: Refill Request Start: 03-13-2022 End: 03-13-2022 Patient encounter procedure Nicole Kenny [employer]ESIOLOGY [employer]AC[employer] Work Phone: Pulmonary Medicine Comment on above: Dyspnea on exertion (Primary Dx); Smoker; Encounter for screening for malignant neoplasm of lung Start: 03-01-2022 Refill Oly Smith [employer] .ANESTHESIOLOGY FACULTY Work Phone: Internal Medicine [place] Comment on above: Refill Request Start: 10-10-2021 [facility] Start: 08-14-2021 [facility] Start: 08-14-2021 [facility] Start: 01-27-2021 End: 01-27-2021 Subsequent hospital visit by physician Xr [facility] [place] Work Phone: Radiology Comment on above: Chest pain, unspecif ied type [R07.9] Pain [R52] Start: 09-28-2019 End: 10-06-2019 Patient encounter status Xr [place] Work Phone: [facility] Start: 04-29-2018 Emergency department patient visit UNKNOWN PROVIDER [facility] Procedures Date Procedure Procedure Detail Performing Clinician Start: 07-09-2025 History of percutane ous transluminal coronary angioplasty ARLEN STRONG [employer]IOLOGY [facility]AC[employer] Start: 06-12-2025 History of percutane ous transluminal coronary angioplasty DR JAE LUCIANO MD Start: 05-17-2025 History of percutane ous transluminal coronary angioplasty GWYN FERRARO [employer]IOLOGY [facility] Start: 03-04-2025 History of percutane ous transluminal coronary angioplasty TIFFANY HANSEN DO Start: 05-08-2023 Radex spine lumbosac ral 2/3 views Oly Durbin [employer]ESIOLOGY FAC[employer] Work Phone: Start: 05-08-2023 Lipid 1996 panel - S jones or Plasma Ulises Hermosillo MD Work Phone: Start: 01-07-2023 Ecg routine ecg w/le ast 12 lds w/i&r ARMANDO BENAVIDES Start: 01-07-2023 Blood count complete auto&auto difrntl wbc ARMANDO BENAVIDES Start: 01-07-2023 Ecg routine ecg w/le ast 12 lds w/i&r Ronna Lane MD Work Phone: Start: 01-07-2023 Assay of troponin quantitative Ronna Lane MD Work Phone: Start: 01-07-2023 BASIC METABOLIC PANE L W/ REFLEX TO MG FOR LOW K Ronna Lane MD Work Phone: Start: 01-02-2023 Plain chest X-ray Dr. Mark Anthony Hermosillo Work Phone: Start: 01-01-2023 Radiologic exam chest 2 views Isauro Asher MD Work Phone: Start: 08-31-2022 INFLUENZA SEASONAL QUADRIVALENT HIGH DOSE AGE 65+ Oly Older [employer]ESIOLOGY [employer]AC[employer] Work Phone: Start: 07-09-2022 Noninvasive ear/puls e oximetry multiple deter Margaret Kasper MD Work Phone: Start: 06-06-2022 Brncdilat rspse spmt ry pre&post-brncdilat admn Nicole Kenny [employer]ESIOLOGY [employer]AC[employer] Work Phone: Start: 05-21-2022 Echo tthrc r-t 2d w/ wom-mode compl spec&colr d Tracy E Sima [employer]ESTHESIOLOGY FAC[employer] Work Phone: Start: 08-25-2021 Cardiac catheterization GWYN FERRARO [employer] Comment on above: with stents Start: 01-27-2021 Radiologic exam chest 2 views Ulises Hermosillo MD Work Phone: Start: 01-27-2021 Radex hips bilateral with pelvis minimum 5 views Babatunde Lomeli MD Work Phone: Start: 04-03-2017 Colonoscopy Oly Older [employer]ESIOLOGY [employer]AC[employer] Work Phone: Cardiac catheterization TIFFANY HANSEN Comment on above: with stents Cervical (qualifier value) C [facility] Comment on above: replacement of 2 dis cs Cholecystectomy EMMANUEL [facility] Cholecystocecostomy EMMANUEL [facility] Ear structure (body structure) DR MILO ESTEBAN MD Comment on above: left facial nerves r epair Hysterectomy EMMANUEL [facility] Investigation of tra nsfusion reaction Dr. Ulises Hermosillo Work Phone: None (qualifier value) [facility] Respiratory microbial culture Dr. Ulises Hermosillo Work Phone: Tonsillectomy [facility]ANUEL [facility] Upper limb structure (body structure) [facility] Comment on above: left Plan of Treatment Date Care Activity Detail Author Start: 05-08-2028 Lipid 1996 panel - Serum or Plasma Lipid Screening [facility] Start: 05-08-2028 Lipid panel Lipid Screening [facility] Start: 05-08-2028 LIPID SCREEN LIPID SCREEN [facility] Start: 04-03-2027 Colonoscopy COLONOSCOPY [facility] Start: 04-03-2027 COLORECTAL CANCER SCREENING COLORECTAL CANCER SCREENING [facility] Start: 04-03-2027 Screening for malignant neoplasm of colon [facility] Start: 09-27-2026 LIPID SCREEN LIPID SCREEN [facility] Start: 05-08-2026 DIABETES SCREEN DIABETES SCREEN [facility] Start: 05-08-2026 Diabetes Screening Diabetes Screening [facility] Start: 10-19-2024 DIABETES SCREEN DIABETES SCREEN [facility] Start: 07-12-2024 Covid-19 Vaccine () Covid-19 Vaccine () [facility] Start: 07-12-2024 Covid-19 Vaccine ( season) Covid-19 Vaccine ( season) [facility] Start: 07-12-2024 Influenza vaccination [facility] Start: 05-08-2024 ANNUAL PCP TEAM CHRONIC DISEASE VISIT ANNUAL PCP TEAM CHRONIC DISEASE VISIT [facility] Start: 05-08-2024 Hepatitis B surface antibody level LDL CHOLESTEROL [facility] Start: 01-01-2024 ANNUAL PCP TEAM CHRONIC DISEASE VISIT ANNUAL PCP TEAM CHRONIC DISEASE VISIT [facility] Start: 11-11-2023 Advance Directive Discussion Advance Directive Discussion [facility] Start: 09-05-2023 ANNUAL PCP TEAM CHRONIC DISEASE VISIT ANNUAL PCP TEAM CHRONIC DISEASE VISIT [facility] Start: 08-31-2023 ANNUAL PCP TEAM CHRONIC DISEASE VISIT ANNUAL PCP TEAM CHRONIC DISEASE VISIT [facility] Start: 08-31-2023 COVID-19 VACCINE (2 - Pfizer series) COVID-19 VACCINE (2 - Pfizer series) [facility] Comment on above: Postponed from 12/12/2021 (Declined at t his time) Postponed from 01/16 (Declined at this time) Start: 08-31-2023 SHINGRIX VACCINE (1 of 2) SHINGRIX VACCINE (1 of 2) [facility] Comment on above: Postponed from 2005 (Declined at t his time) Start: 08-31-2023 Urine microalbumin profile DTAP,TDAP,TD (1 - Tdap) [facility] Comment on above: Postponed from 1974 (Declined at t his time) Start: 07-26-2023 Influenza vaccination LUNG CANCER SCREENING [facility] Start: 07-26-2023 Screening for malignant neoplasm of lung Lung Cancer Screening [facility] Start: 07-12-2023 Covid-19 Vaccine ( season) Covid-19 Vaccine () [facility] Start: 07-12-2023 Influenza vaccination [facility] Start: 05-11-2023 ANNUAL PCP TEAM CHRONIC DISEASE VISIT ANNUAL PCP TEAM CHRONIC DISEASE VISIT [facility] Start: 05-11-2023 BP CONTROLLED (<130/80) BP CONTROLLED (<130/80) [facility] Start: 05-08-2023 End: 07-08-2023 Comprehensive metabolic 2000 panel - Serum or Plasma [facility] Work Phone: Comment on above: Expected: 05/08/2023, Expires: 3 Start: 05-08-2023 End: 07-08-2023 LIPID PANEL, NONFASTING [facility] Work Phone: Comment on above: Expected: 05/08/2023, Expires: 3 Start: 04-21-2023 PNEUMOVAX AGE 65 AND OVER WITH 5YR LOOKBACK (#1) PNEUMOVAX AGE 65 AND OVER WITH 5YR LOOKBACK (#1) [facility] Start: 01-07-2023 Patient discharge [facility] Start: 01-07-2023 [facility] Start: 01-03-2023 Care regimes management [facility] Start: 01-03-2023 Notification of physician [facility] Start: 01-03-2023 [facility] Start: 01-03-2023 Following clinical pathway protocol [facility] Start: 01-02-2023 Assessment of risk of venous thromboembolism [facility] Start: 01-02-2023 Incentive spirometry [facility] Start: 01-02-2023 Inhalation therapy procedure [facility] Start: 01-02-2023 Insertion of catheter into peripheral vein [facility] Start: 01-02-2023 Introduction of urinary catheter [facility] Start: 01-02-2023 Measuring intake and output [facility] Start: 01-02-2023 Notification of physician [facility] Start: 01-02-2023 Oxygen therapy [facility] Start: 01-02-2023 Providing care according to standard [facility] Start: 01-02-2023 Provision of activity privileges [facility] Start: 01-02-2023 Referral to service [facility] Start: 01-02-2023 Tobacco use cessation education [facility] Start: 01-02-2023 Vital signs measurements [facility] Start: 01-02-2023 [facility] Start: 01-02-2023 Electrocardiographic procedure [facility] Start: 01-02-2023 [facility] Start: 01-02-2023 Verification routine [facility] Start: 01-02-2023 Admission procedure [facility] Start: 01-02-2023 Patient referral to dietitian [facility] Start: 11-26-2022 End: 01-26-2023 Alpha 1 antitrypsin [Mass/volume] in Serum or Plasma [id number] Lab Routine Stage 3 severe COPD by GOLD classification (HCC) Expected: 11/26/2022, Expires: 01/26/2023 [facility] Work Phone: Comment on above: Expected: 11/26/2022, Expires: 3 Start: 11-26-2022 End: 01-26-2023 CBC W Auto Differential panel - Blood CBC + DIFF Lab Routine Hemoptysis Expected: 11/26/2022, Expires: 01/26/2023 [facility] Work Phone: Comment on above: Expected: 11/26/2022, Expires: 3 Start: 11-11-2022 ADVANCE DIRECTIVE DISCUSSION ADVANCE DIRECTIVE DISCUSSION [facility] Start: 10-19-2022 ANNUAL PCP TEAM CHRONIC DISEASE VISIT ANNUAL PCP TEAM CHRONIC DISEASE VISIT [facility] Start: 09-27-2022 Hepatitis B surface antibody level LDL CHOLESTEROL [facility] Start: 08-11-2022 End: 10-11-2022 CBC panel - Blood by Automated count CBC Lab Routine PAD (peripheral artery disease) (HCC) Expected: 08/11/2022, Expires: 10/11/2022 [facility] Work Phone: Comment on above: Expected: 08/11/2022, Expires: 2 Start: 08-11-2022 End: 10-11-2022 Comprehensive metabolic 2000 panel - Serum or Plasma COMP METABOLIC PANEL Lab Routine PAD (peripheral artery disease) (HCC) Expected: 08/11/2022, Expires: 10/11/2022 [facility] Work Phone: Comment on above: Expected: 08/11/2022, Expires: 2 Start: 08-11-2022 End: 10-11-2022 Lipid 1996 panel - Serum or Plasma LIPID PANEL BASIC Lab Routine PAD (peripheral artery disease) (HCC) Expected: 08/11/2022, Expires: 10/11/2022 [facility] Work Phone: Comment on above: Expected: 08/11/2022, Expires: 2 Start: 07-12-2022 Influenza vaccination [facility] Start: 12-12-2021 COVID-19 VACCINE (2 - Pfizer 3-dose series) COVID-19 VACCINE (2 - Pfizer 3-dose series) [facility] Start: 12-12-2021 COVID-19 VACCINE (2 - Pfizer series) COVID-19 VACCINE (2 - Pfizer series) [facility] Start: 11-11-2021 ADVANCE DIRECTIVE DISCUSSION ADVANCE DIRECTIVE DISCUSSION [facility] Start: 01-06-2021 BP CONTROLLED (<130/80) BP CONTROLLED (<130/80) [facility] Start: 2020 BONE DENSITY BONE DENSITY [facility] Start: 2020 Bone Density Screening Bone Density Screening [facility] Start: 2020 Screening for osteoporosis Bone Density Screening [facility] Start: 04-21-2019 PNEUMOCOCCAL: 65+ (2 - PCV) PNEUMOCOCCAL: 65+ (2 - PCV) [facility] Start: 2015 RSV Vaccine (1 - 1-dose 60+ series) RSV Vaccine (1 - 1-dose 60+ series) [facility] Start: 2015 RSV Vaccine (1 - Risk 60-74 years 1-dose series) RSV Vaccine (1 - Risk 60-74 years 1-dose series) [facility] Start: 2010 Influenza vaccination LUNG CANCER SCREENING [facility] Start: 2005 Influenza vaccination LUNG CANCER SCREENING [facility] Start: 2005 SHINGRIX VACCINE (1 of 2) SHINGRIX VACCINE (1 of 2) [facility] Start: 2000 COLOGUARD (FIT-DNA) COLOGUARD (FIT-DNA) [facility] Start: [address] COLONOGRAPHY [facility] Start: 2000 FECAL OCCULT BLOOD FECAL OCCULT BLOOD [facility] Start: 2000 Screening for malignant neoplasm of colon [facility] Start: 2000 SIGMOIDOSCOPY SIGMOIDOSCOPY [facility] Start: 1985 Zoledronic acid therapy ALPHA-1 ANTITRYPSIN DEFICIENCY SCREENING [facility] Start: 1974 DTaP/Tdap/Td vaccine (1 - Tdap) DTaP/Tdap/Td vaccine (1 - Tdap) [facility] Start: 1974 Urine microalbumin profile [facility] Start: 1961 PNEUMOCOCCAL: 65+ (1 - PCV) PNEUMOCOCCAL: 65+ (1 - PCV) [facility] End: 10-10-2022 CT LUNG SCREEN WO IVCON CT LUNG SCREEN WO IVCON Radiology Routine Smoker Encounter for screening for malignant neoplasm of lung 1 Occurrences starting 05/30/2022 until 10/10/2022 [facility] Work Phone: Comment on above: 1 Occurrences starting 05/30/2022 until 10/10/2022 End: 06-26-2024 CT LUNG SCREEN WO IVCON CT LUNG SCREEN WO IVCON Radiology Routine Encounter for screening for lung cancer Tobacco use current 1 Occurrences starting 05/28/2023 until 06/26/2024 [facility] Work Phone: Comment on above: 1 Occurrences starting 05/28/2023 until 06/26/2024 End: 09-30-2023 Dxa bone density study 1/> sites axial skel DXA-AXIAL SKELETON Radiology Routine Screening for osteoporosis Asymptomatic menopause 1 Occurrences starting 08/31/2022 until 09/30/2023 [facility] Work Phone: Comment on above: 1 Occurrences starting 08/31/2022 until 09/30/2023 End: 04-30-2023 Echocardiography ECHO Cardiology Routine DIAZ (dyspnea on exertion) 1 Occurrences starting 04/30/2022 until 04/30/2023 [facility] Work Phone: Comment on above: 1 Occurrences starting 04/30/2022 until 04/30/2023 EKG 12 Lead EKG 12 Lead ECG STAT 01/07/2023 6:50 PM EST [facility] Work Phone: End: 04-12-2023 LUNG DIFFUSION CAPACITY (DLCO) LUNG DIFFUSION CAPACITY (DLCO) PFT Routine Dyspnea on exertion 1 Occurrences starting 03/13/2022 until 04/12/2023 [facility] Work Phone: Comment on above: 1 Occurrences starting 03/13/2022 until 04/12/2023 End: 08-05-2023 OXIMETRY WITH AMBULATION OXIMETRY WITH AMBULATION PFT Routine SOB (shortness of breath) 1 Occurrences starting 07/06/2022 until 08/05/2023 [facility] Work Phone: Comment on above: 1 Occurrences starting 07/06/2022 until 08/05/2023 Patient referral [facility] Work Phone: End: 05-11-2023 PVR LEG SHERIN VAS LAB PVR LEG SHERIN VAS LAB Vascular Lab Routine PAD (peripheral artery disease) (HCC) 1 Occurrences starting 05/11/2022 until 05/11/2023 [facility] Work Phone: Comment on above: 1 Occurrences starting 05/11/2022 until 05/11/2023 End: 09-21-2023 PVR LEG SHERIN VAS LAB PVR LEG SHERIN VAS LAB Vascular Lab Routine Peripheral arterial disease (HCC) 1 Occurrences starting 09/21/2022 until 09/21/2023 [facility] Work Phone: Comment on above: 1 Occurrences starting 09/21/2022 until 09/21/2023 End: 10-02-2023 PVR LEG SHERIN VAS LAB PVR LEG SHERIN VAS LAB Vascular Lab Routine PAD (peripheral artery disease) (HCC) 1 Occurrences starting 10/02/2022 until 10/02/2023 [facility] Work Phone: Comment on above: 1 Occurrences starting 10/02/2022 until 10/02/2023 End: 06-06-2024 Radex spine lumbosacral 2/3 views XR LUMBAR GENERAL 3V AP/LAT/L5-S1 Radiology Routine Chronic midline low back pain with sciatica, sciatica laterality unspecified 1 Occurrences starting 05/08/2023 until 06/06/2024 [facility] Work Phone: Comment on above: 1 Occurrences starting 05/08/2023 until 06/06/2024 Radex spine lumbosac ral 2/3 views XR LUMBAR GENERAL 3V AP/LAT/L5-S1 Radiology Routine Chronic midline low back pain with sciatica, sciatica laterality unspecified 05/08/2023 1:01 PM EDT [facility] Work Phone: End: 12-26-2023 Radiologic exam chest 2 views XR CHEST 2V FRONTAL/LAT Radiology Routine Hemoptysis 1 Occurrences starting 11/26/2022 until 12/26/2023 [facility] Work Phone: Comment on above: 1 Occurrences starting 11/26/2022 until 12/26/2023 End: 04-12-2023 SPIROMETRY - BASELINE AND POST DILATOR SPIROMETRY - BASELINE AND POST DILATOR PFT Routine Dyspnea on exertion 1 Occurrences starting 03/13/2022 until 04/12/2023 [facility] Work Phone: Comment on above: 1 Occurrences starting 03/13/2022 until 04/12/2023 SPIROMETRY - BASELIN E AND POST DILATOR SPIROMETRY - BASELINE AND POST DILATOR PFT Routine Dyspnea on exertion 06/06/2022 9:25 AM EDT [facility] Work Phone: [facility] Immunizations Immunization Date Immunization Notes Care Provider Fa [facility] 08-31-2022 influenza, high dose seasonal, preservative-free Dr. Ulises Hermosillo Work Phone: [facility] 08-31-2022 influenza, high-dose , quadrivalent vaccine (FLUZONE HIGH DOSE QUADRIVALENT) Oly Smith APRN.CNP Work Phone: [facility] 08-31-2022 influenza virus vacc ine, unspecified formulation Ulises Hermosillo MD Work Phone: [facility] 05-11-2022 pneumococcal Conjuga te, unspecified formulation Ulises Hermosillo MD Work Phone: [facility] Work Phone: 05-11-2022 pneumococcal (PCV20) vaccine, 20 valent (PREVNAR 20) Ulises Hermosillo MD Work Phone: [facility] 05-11-2022 pneumococcal 20-maryann nt conjugate vaccine TIFFANY PABONERLY DO [facility] 11-21-2021 Covid (Pfizer) Dr. Ulises Hermosillo Work Phone: [facility] 11-21-2021 COVID-19 vaccine, ag e 12+ yr (P[employer]ZER[employer] [facility]) Oly Older [employer].ANESTHESIOLOGY FACULTY Work Phone: [facility] Work Phone: Comment on above: Result Comment: 2024: INDIVIDUALS AGE 65 TO 69 YEARS OF AGE 1008-23-2020 influenza virus vacc ine, unspecified formulation TIFFANY JADE DO [facility] 08-23-2020 influenza, high-dose , quadrivalent vaccine (FLUZONE HIGH DOSE QUADRIVALENT) Oly Older [employer]ESTHESIOLOGY FAC[employer]Y Work Phone: [facility] 01-06-2020 influenza virus vacc ine, unspecified formulation TIFFANY HANSEN DO [facility] 01-06-2020 influenza, injectabl e, quadrivalent, contains preservative Oly Older [employer].ANESTHESIOLOGY FACULTY Work Phone: [facility] Work Phone: 04-21-2018 pneumococcal polysaccharide vaccine, 23 valent Oly Older [employer]ANESTHESIOLOGY FACULT[employer] Work Phone: [facility] 09-13-2011 influenza, seasonal, injectable, preservative free EMMANUEL KILLIAN DO [facility] 09-13-2011 pneumococcal polysaccharide vaccine, 23 valent EMMANUEL THOMPSONT DO [facility] Payers Date Payer Category Payer Self-pay [id number] 2025 Private Health Insurance [id number] 2024 Unknown [id number] 2022 Medicare [id number] 2021 Unknown ANTHEM BLUE CROS S AND BLUE SHIELD ANTHEM MEDIBLUE HMO [id number] 2021-Present [phone] [address] [place] [address] O [id number] 2021 Unknown [id number] 2021 Medicaid MEDICAID [facility] MEDICAID [id number] 2021-Present [phone] [address] [place] [address] Medicaid [id number] 2021 Medicaid [id number] 2021 Medicaid [id number] 2021 Unknown 2021 Unknown [id number] 2021 Medicare [id number] 1955 Unknown [id number] [id number]. 627 1955 Unknown [id number] 2.16.840.1.841614.3.579.2. 627 1955 Unknown [id number] 2.16.840.1.921503.3.579.2. 627 1955 Unknown [id number] 2.16.840.1.825562.3.579.2. 1955 Unknown [id number] 2.16.840.1.334103.3.579.2. 204 1955 Unknown [id number] 2.16.840.1.827006.3.579.2. 1955 Unknown [id number] 2.16.840.1.342888.3.579.2. 1955 Unknown [id number] 2.840.1.459373.3.579.2. 1955 Unknown [id number] 2.840.1.878099.3.579.2. 1955 Unknown [id number] 2.840.1.136754.3.579.2. 1955 Unknown [id number] 2.840.1.152140.3.579.2. 1955 Unknown [id number] 2.840.1.347912.3.579.2. 1955 Unknown [id number] 2.840.1.921280.3.579.2. 1955 Unknown [id number] 2.16840.1.829859.3.579.2. 1955 Unknown [id number] 2.16840.1.881919.3.579.2. 1955 Unknown [id number] 2.16.840.1.221976.3.579.2. 1955 Unknown [id number] 2.16840.1.817473.3.579.2. 1955 Unknown [id number] 2.16840.1.542091.3.579.2. 627 [facility] Health [facility] 18 [id number] Unknown [id number] Unknown [id number] [id number]. 462 Social History Date Type Detail Facility Start: 10-06-2019 End: 05-30-2022 Tobacco smoking status NHIS Smokes tobacco daily [facility] Start: 11-11-1966 History of tobacco use Cigarette Smo ker [facility] Start: 01-05-2021 End: 12-05-2021 Alcohol intake Current drinker of alcohol (finding) [facility] Start: 10-06-2019 History SDOH Alcohol Frequency 2 [facility] Start: 10-06-2019 History SDOH Alcohol Std Drinks 3 [facility] Start: 10-06-2019 Tobacco Comment down to 1ppd 9 [facility] Start: 1955 Sex Assigned At Not on file [facility] Start: 12-28-2020 End: 01-07-2023 Exposure to SARS-CoV-2 (event) Not sure [facility] Start: 06-14-2021 End: 05-16-2025 Tobacco smoking status Heavy tobacco smoker (finding) [facility] Sex Assigned At [facility] Start: 04-24-2022 End: 07-13-2022 Exposure to SARS-CoV-2 (event) Unable to assess [facility] Work Phone: Start: 10-16-2020 End: 05-30-2022 Cigarettes smoked current (pack per day) - Reported 2 [facility] Work Phone: Start: 10-06-2019 End: 05-30-2022 Tobacco use and exposure Smokeless tobacco non-user [facility] Work Phone: Start: 07-31-2022 Tobacco Comment started age 10 - down to 1.5 ppd lately [facility] Start: 10-02-2022 Tobacco Comment started age 10 - down to 1.5 ppd lately, now down to 1 ppd [facility] Start: 11-26-2022 End: 05-08-2023 Alcohol intake Ex-drinker (finding) [facility] Start: 01-01-2023 History SDOH Alcohol Frequency 5 [facility] Start: 01-02-2023 End: 01-03-2023 Tobacco smoking status NHIS Unknown if ever smoked [facility] Start: 01-02-2023 Heavy [facility] Start: 01-02-2023 None [facility] Start: 02-24-2018 Secondhand;Cigarettes [facility] Start: 1955 Sex Assigned At Female [facility] Start: 04-30-2018 Tobacco Comment 1ppd [facility] Work Phone: Start: 04-30-2018 Alcohol Comment a case of beer / day/ since 10 yo/ [facility]i [facility] [facility] Start: 05-08-2023 Alcohol Comment Quit drinking in 202 [facility] Start: 10-16-2020 End: 01-01-2023 Alcohol Use Disorder Identification Test - Consumption [AUDIT-C] [facility] Work Phone: How often to you hav e a drink containing alcohol? 4 or more times a week [facility] Work Phone: How many standard dr inks containing alcohol do you have on a typical day? 10 or more [facility] Work Phone: How often do you hav e 6 or more drinks on 1 occasion? Daily or almost daily [facility] Work Phone: PHQ2 Score 0 [facility] How often to you hav e a drink containing alcohol? Monthly or less [facility] How many standard dr inks containing alcohol do you have on a typical day? 5 or 6 [facility] How often do you hav e 6 or more drinks on 1 occasion? Monthly [facility] Start: 12-19-2005 Sex Female (finding) [facility] Medical Equipment Procedure Code Equipment Code Equipment Origin al Text Equipment Identifier Dates Kbr-Ei-U-Kind Im plant - [id number] Start: 10-20-2019 Comment on above: Description: innova vascular sten Liner 36mm 0d E X3 5.9mm Acetabular Hip - [id number] Start: 03-25-2019 Shell 54mm E Hemispherical Tritanium Acetabular Primary Rim Cluster Hole - [id number] Start: 03-25-2019 Head V40 36mm 0m m Offset Taper Biolox Delta Femoral Hip - [id number] Start: 03-25-2019 Stem Accolade Ii 6 127d Femoral - [id number] Start: 03-25-2019 Patch Xenosure B ovine Pericardial 14x1cm Vascular Nonpyrogenic Sterile - [id number] Start: 10-20-2019 Screw Trident Secur-Fit Torx 6.5mm Titanium 25mm Bone Sterile Acetabular - [id number] Start: 03-25-2019 Stent Innova 8mm 80mm 130cm Vascular Self Expand Radiopaque Hybrid Cell - [id number] Start: 10-20-2019 Goals Date Patient Goal Desired Activity /State Functional Status Date Assessment Result Facility 03-06-2025 Functional Status Other: 7am-1pm [facility] 03-06-2025 Functional Status Room check performed [facility] 03-06-2025 Functional Status [facility] 03-06-2025 Functional Status [facility] 03-05-2025 Functional Status Demonstrates C orrect Call Light Use Yes [facility] 03-05-2025 Functional Status [facility] 03-05-2025 [facility]25 Functional Status [facility] 03-05-2025 Functional Status Positioning Repositions self [facility] 03-05-2025 Functional Status [facility] 03-05-2025 Functional Status [facility] 03-04-2025 Functional Status Mobile home [facility] 03-04-2025 Functional Status Sensory Defici ts Hearing deficit, left ear, Uncorrected visual impairment [facility] 12-14-2024 Functional Status Awake, Resting [facility] 12-14-2024 Functional Status Room check performed [facility] 01-07-2023 Functional status Bathroom Privilege [facility] Work Phone: 12-23-2022 Functional Status Independent [facility] 12-23-2022 Functional Status Standard Safet y ID band on, Call device within reach, Bed in low position, Wheels locked, Upper/Half-Length side-rails up, Phone within reach, personal items within reach, Bedside Cart Locked [facility] 10-26-2022 Functional Status Independent [facility] 10-26-2022 Functional Status Room check performed [facility] 05-05-2022 Functional Status Room located n ear nursing station, Door open, Non-Slip footwear, Room check performed [facility] 05-05-2022 Functional Status [facility] 05-04-2022 Functional Status Ambulation in Room [facility] 05-04-2022 Functional Status Bath cloths [facility] 05-03-2022 Functional Status [facility] 05-02-2022 Functional Status Hospital bed [facility] 05-02-2022 Functional Status [facility] 05-02-2022 Functional Status Standard Safet y ID band on, Call device within reach, Bed in low position, Wheels locked, Upper/Half-Length side-rails up, Phone within reach, personal items within reach [facility] Mental Status Date Assessment Result Facility 03-06-2025 Mental Status Oriented x 4 [facility] 03-05-2025 Mental Status [facility] 03-05-2025 Mental Status [facility] 03-04-2025 Mental Status [facility] 12-14-2024 Mental Status Orientation Oriented x 4 [facility] 12-14-2024 Mental Status [facility] 01-07-2023 Cognitive function Level Of Cons ciousness Awake;Alert [facility] Work Phone: 01-06-2023 Cognitive function Demonstrates ability to follow instructions/comprehend [facility] Work Phone: 01-06-2023 Cognitive function Voice/Name [facility] Work Phone: 12-23-2022 Mental Status Orientation Oriented x 4 [facility] 12-23-2022 Mental Status [facility] 10-26-2022 Mental Status Orientation Oriented x 4 [facility] 10-26-2022 Mental Status [facility] 05-05-2022 Mental Status Oriented x 4 [facility] 05-04-2022 Mental Status [facility] 05-04-2022 Mental Status [facility] 05-04-2022 Mental Status [facility] 05-02-2022 Mental Status Orientation Oriented x 4 [facility] Clinical Notes 07-07-2020 to 07-12-2025 Note Date & Type Note Facility 07-12-2025 Nurse Discharge summary Valorie Report called to Brian at [facility] 07-12-2025 Note Discharge Instructions Thank you for allowing [facility] to assist you with your healthcare needs. The following is important discharge information regarding your hospital visit. Your Care Team EMMA QUEEN DO Your Diagnosis CAD in [place] artery Cardiomyopathy COPD without exacerbation Fall IGOR (generalized anxiety disorder) Psychophysiologic insomnia Stented coronary artery Strain of right knee Tobacco use Weak Weakness What to do next Scheduled Follow-Up Appointments Appointment Type When With Where Contact Information StatusCV OV Hospital Follow Up 07/13/2025 10:00 AM EDT ELLEN SWAN APRN-LINDA [facility] CVC Confirmed PC OV 07/30/2025 10:00 AM EDT EMMA QUEEN DO [address] [id number] Confirmed Follow Up Appointments Follow Up with JULIO OROZCO DO, Orthopedic When:Within 5 to 7 days Where:[address] [place] [address] [address] [place] [phone] Follow Up with EMMA QUEEN DO When:Within 2-4 days Where:[address] [place] [id number] [phone] The Following Activity and Diet Have Been Ordered for You Transfer of Care Activity - Ordered -- As instructed by therapy, 07/12/25 10:40:00 EDT Transfer of Care Diet - Ordered -- Type of Diet: Regular Diet, 07/12/25 10:40:00 EDT The Following Equipment Has Been Ordered for You No qualifying data available. The Following Treatments Have Been Ordered for You Discharge Labs No qualifying data available. Discharge Radiology No qualifying data available. Other Therapies Transfer of Care OT - Ordered -- Reason for therapy: weakness, 07/12/25 10:40:00 EDT Transfer of Care PT - Ordered -- Reason for therapy: Weakness, 07/12/25 10:40:00 EDT Post Acute Orders Transfer of Care Admission Level of Care - Ordered -- Level of Care SNF, 07/12/25 10:40:13 EDT Transfer of Care Code Status - Ordered -- Full Code, Constant Order Transfer of Care Orders Electronically Signed By - Ordered -- 07/12/25 10:40:00 EDT, KENNEN, ARLEN L [facility] Transfer of Care Oxygen Therapy - Ordered -- Oxygen (CONTINUOUS), Mobile in the Home, Nasal Cannula, 2 liters per minute, 999 month(s), 07/12/25 10:40:00 EDT Transfer of Care Prognosis - Ordered -- Fair, Patient Aware: Yes Transfer of Care Rehab Potential - Ordered -- Rehab potential fair, 07/12/25 10:40:13 EDT Someone Will Contact You Regarding These Home Health Referrals No home referrals have been ordered for you. No one will call you. Allergies NKA Medications Please ask your primary doctor or pharmacist before taking any other medication not listed, including over the counter drugs, herbal medications, vitamins and or supplements as they may interact with your home medications. What How Much When Why Instructions Last Dose New nicotine (NicoDerm CQ 21 mg/ 24 hr transdermal patch) 1 patch(es) Transdermal Every day Duration: 6 week(s) Not given - patient refused New TNF-Med (BMX) 1 dose by mouth Four (4) times a day Duration: 10 Days Not given Changed busPIRone (busPIRone 5 mg oral tablet) 2 tab(s) by mouth Three (3) times a day Duration: 30 Days 07/12 @ 9 am Unchanged albuterol (albuterol MDI (90 mcg/ inh) CFC free inhalation aerosol) 2 puff(s) by inhalation Four (4) times a day as needed for as needed for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 Diet Restrictions: Low sodium, Sodium limit: 2 gm, 06/12/25 19:20:00EDT Discharge Diet - Ordered -- Type of Diet: Regular, 06/14/25 16:52:00 EDT The Following Equipment Has Been Ordered for You No qualifying data available. The Following Treatments Have Been Ordered for You Discharge Labs Discharge Outpatient Labwork - Ordered -- BMP, Follow-up, Draw 3 days after discharge, 06/12/25 19:20:00 EDT Discharge Outpatient Labwork - Ordered -- PT/INR, If on Warfarin, 3 days after discharge, 06/12/25 19:20:00 EDT Discharge Outpatient Labwork - Ordered -- Digoxin level, Follow-up, 06/12/25 19:20:00 EDT Discharge Radiology No qualifying data available. Other Therapies No qualifying data available. Post Acute Orders No qualifying data available. Someone Will Contact You Regarding These Home Health Referrals No home referrals have been ordered for you. No one will call you. Allergies NKA Medications Please ask your primary doctor or pharmacist before taking any other medication not listed, including over the counter drugs, herbal medications, vitamins and or supplements as they may interact withyour home medications. What How Much When Why Instructions Last Dose New empagliflozin (Jardiance 10 mg oral tablet) 1 tab(s) by mouth Once a day (in the morning) Pickup at [facility]/pharmacy #[id number] Unchanged albuterol (albuterol MDI (90 mcg/ inh) CFC free inhalation aerosol) 2 puff(s) by inhalation Four (4) times a day as needed for as needed for wheezing COPD with chronic bronchitis Unchanged albuterol (albuterol 0.63 mg/ 3 mL (0.021%) inhalation solution) 3 Milliliter by inhalation Four (4) times a day Unchanged aspirin (aspirin 81 mg oral tablet, chewable) 81 Milligram Chewed Once a day Stented coronary artery CAD in [place] artery Unchanged busPIRone (busPIRone 5 mg oral tablet) 1 tab(s) by mouth Three (3) times a day Duration: 30 Days Unchanged caffeine (caffeine 200 mg oral tablet) 1 tab(s) by mouth Every 4 hours plus green tea extract 220mg Unchanged clopidogrel (clopidogrel 75 mg oral tablet) 1 tab(s) by mouth Every day Unchanged DME (Nebulizer (Compressor)) See instructions COPD with chronic bronchitis Nebulizer machine and supplies Unchanged fluticasone/ umeclidinium/ vilanterol (Trelegy Ellipta 200 mcg-62.5 mcg-25 mcg/ inh inhalation powder) 1 puff(s) by inhalation Once a day at the same time every day Unchanged furosemide (Lasix 40 mg oral tablet) 1 tab(s) by mouth Once a day [id number] Unchanged metoprolol (metoprolol succinate 50 mg oral TABLET extended release) 1 tab(s) by mouth Once a day Do not crush or chew (controlled release) [id number] Unchanged pantoprazole (Protonix 20 mg oral enteric coated tablet) 2 tab(s) by mouth Once a day before a meal Unchanged rosuvastatin (Crestor 20 mg oral tablet) 1 tab(s) by mouth Once a day Unchanged sacubitril-valsartan (Entresto 24 mg-26 mg oral tablet) 1 tab(s) by mouth Two (2) times a day [id number] Unchanged traZODone (traZODone 100 mg oral tablet) 1 tab(s) by mouth Daily at bedtime Psychophysiologic insomnia [id number] [address], [place] [phone] What How Much When Comments Stop Taking amLODIPine (amLODIPine 5 mg oral tablet) 1 tab(s) by mouth Once a day Stop Taking ePHEDrine (Bronkaid Max 25 mg oral tablet) 1 tab(s) by mouth Every 4 hours not to exceed 6 tablets/ day Please take this list to your next doctor s visit. Bring all medications you take, including over the counter medications, herbals and other supplements with you to your doctor s visit. Patients and families are reminded to discard old lists and to update any records with all medication providers or retail pharmacies. Medication Leaflets aspirin (oral) ( pir in) Aspi-Cor, Cisco Plus, Ecotrin, Miniprin, [place] What is the most important information I should know about aspirin? Aspirin can cause Genaro's syndrome, a serious and sometimes fatal condition in children. What is aspirin? Aspirin is a salicylate (fm-DWW-zn-ate) that is used to treat pain, and reduce fever or inflammation. Aspirin is sometimes used to treat or prevent heart attacks, strokes, and chest pain (angina). Aspirin should be used for these conditions only under the supervision of a doctor. Aspirin may also be used for purposes not listed in this medication guide. What should I discuss with my healthcare provider before taking aspirin? Using aspirin in a child or teenager with flu symptoms or chickenpox can cause a serious or fatal condition called Genaro's syndrome. You should not use aspirin if you are allergic to it, or if you have: a recent history of stomach or intestinal bleeding; a bleeding disorder such as hemophilia; or if you have ever had an asthma attack or severe allergic reaction after taking aspirin or an NSAID (non-steroidal anti-inflammatory drug). Tell your doctor if you have ever had: asthma or seasonal allergies; stomach ulcers; liver disease; kidney disease; a bleeding or blood clotting disorder; gout; or heart disease, high blood pressure, or congestive heart failure. Taking aspirin during late may cause bleeding in the mother or the baby during delivery. Tell your doctor if you are or plan to become . You should not breastfeed while using this medicine. How should I take aspirin? Use exactly as directed on the label, or as prescribed by your doctor. Always follow directions on the medicine label about giving aspirin to a child. Take with food if aspirin upsets your stomach. You must chew the chewable tablet before you swallow it. Do not crush, chew, break, or open an enteric-coated or delayed/extended-release pill. Swallow it whole. Tell your doctor if you have a planned surgery. Store at room temperature away from moisture and heat. Do not use aspirin if you smell a strong vinegar odor in the aspirin bottle. The medicine may no longer be effective. What happens if I miss a dose? Aspirin is used when needed. If you are on a dosing schedule, skip any missed dose. Do not use two doses at one time. What happens if I overdose? Seek emergency medical attention or call the Poison Help line at . Overdose may cause stomach pain, vomiting, diarrhea, vision or hearing problems, fast or slow breathing, or confusion. What should I avoid while taking aspirin? Avoid alcohol. Heavy drinking can increase your risk of stomach bleeding. Avoid taking ibuprofen if you take aspirin to prevent stroke or heart attack. Ibuprofen can make aspirin less effective in protecting your heart and blood vessels. Ask your doctor how far apart your doses should be. Ask a doctor or pharmacist before using other medicines for pain, fever, swelling, or cold/flu symptoms. They may contain ingredients similar to aspirin (such as magnesium salicylate, ibuprofen, ketoprofen, or naproxen). What are the possible side effects of aspirin? Get emergency medical help if you have signs of an allergic reaction: hives; difficult breathing; swelling of your face, lips, tongue, or throat. Stop using aspirin and call your doctor at once if you have: ringing in your ears, confusion, hallucinations, rapid breathing, seizure (convulsions); severe nausea, vomiting, or stomach pain; bloody or tarry stools, coughing up blood or vomit that looks like coffee grounds; fever lasting longer than 3 days; or swelling, or pain lasting longer than 10 days. Common side effects may include: upset stomach, heartburn; drowsiness; or mild headache. This is not a complete list of side effects and others may occur. Call your doctor for medical advice about side effects. You may report side effects to FDA at 6-710-HIL-8022. What other drugs will affect aspirin? Ask your doctor before using aspirin if you take an antidepressant. Taking certain antidepressants with aspirin may cause you to bruise or bleed easily. Ask a doctor or pharmacist before using aspirin with any other medications, especially: a blood thinner (warfarin, Coumadin, Jantoven), or other medication used to prevent blood clots; or other salicylates such as Nuprin Backache Caplet, Kaopectate, KneeRelief, Pamprin Cramp Formula, Pepto-Bismol, Tricosal, Trilisate, and others. This list is not complete. Other drugs may affect aspirin, including prescription and [id number]-gjl-[id number] medicines, vitamins, and herbal products. Not all possible drug interactions are listed here. Where can I get more information? Your pharmacist can provide more information about aspirin. Remember, keep this and all other medicines out of the reach of children, never share your medicines with others, and use this medication only for the indication prescribed. Every effort has been made to ensure that the information provided by [employer]. ('[employer]') is accurate, up-to-date, and complete, but no guarantee is made to that effect. Drug information contained herein may be time sensitive. [employer] information has been compiled for use by healthcare practitioners and consumers in the [place] and therefore [employer] does not warrant that uses outside of the [place] are appropriate, unless specifically indicated otherwise. [employer] drug information does not endorse drugs, diagnose patients or recommend therapy. [employer] drug information isan informational resource designed to assist licensed healthcare practitioners in caring for their p atients and/or to serve consumers viewing this service as a supplement to, and not a substitute for, the expertise, skill, knowledge and judgment of healthcare practitioners. The absence of a warningfor a given drug or drug combination in no way should be construed to indicate that the drug or drug combination is safe, effective or appropriate for any given patient. [employer] does not assume any responsibility for any aspect of healthcare administered with the aid of information [employer] provides. The information contained herein is not intended to cover all possible uses, directions, precautions, warnings, drug interactions, allergic reactions, or adverse effects. If you have questions about the drugs you are taking, check with your doctor, nurse or pharmacist. Copyright 6274-3044 [facility] [employer]. Version: 18.02. Revision Date: 10/28/2024. Education Materials Heart-Healthy Eating Plan Many factors influence your heart (coronary) health, including eating and exercise habits. Coronaryrisk increases with abnormal blood fat (lipid) levels. Heart-healthy meal planning includes limiting unhealthy fats, increasing healthy fats, and making other diet and lifestyle changes. What is my plan? Your health care provider may recommend that you: Limit your fat intake to % or less of your total calories each day. Limit your saturated fat intake to % or less of your total calories each day. Limit the amount of cholesterol in your diet to less than mg per day. What are tips for following this plan? Cooking Cook foods using methods other than frying. Baking, boiling, grilling, and broiling are all good options. Other ways to reduce fat include: Removing the skin from poultry. Removing all visible fats from meats. Steaming vegetables in water or broth. Meal planning At meals, imagine dividing your plate into fourths: ? Fill one-half of your plate with vegetables and green salads. ? Fill one-fourth of your plate with whole grains. ? Fill one-fourth of your plate with lean protein foods. Eat 4 5 servings of vegetables per day. One serving equals 1 cup raw or cooked vegetable, or 2 cupsraw leafy greens. Eat 4 5 servings of fruit per day. One serving equals 1 medium whole fruit, cup dried fruit, cup fresh, frozen, or canned fruit, or cup 100% fruit juice. Eat more foods that contain soluble fiber. Examples include apples, broccoli, carrots, beans, peas,and barley. Aim to get 25 30 g of fiber per day. Increase your consumption of legumes, nuts, and seeds to 4 5 servings per week. One serving of dried beans or legumes equals cup cooked, 1 serving of nuts is cup, and 1 serving of seeds equals 1 tablespoon. Fats Choose healthy fats more often. Choose monounsaturated and polyunsaturated fats, such as olive and canola oils, flaxseeds, walnuts, almonds, and seeds. Eat more omega-3 fats. Choose salmon, mackerel, sardines, tuna, flaxseed oil, and ground flaxseeds.Aim to eat fish at least 2 times each week. Check food labels carefully to identify foods with trans fats or high amounts of saturated fat. Limit saturated fats. These are found in animal products, such as meats, butter, and cream. Plant sources of saturated fats include palm oil, palm kernel oil, and coconut oil. Avoid foods with partially hydrogenated oils in them. These contain trans fats. Examples are stick margarine, some tub margarines, cookies, crackers, and other baked goods. Avoid fried foods. General information Eat more home-cooked food and less restaurant, buffet, and fast food. Limit or avoid alcohol. Limit foods that are high in starch and sugar. Lose weight if you are overweight. Losing just 5 10% of your body weight can help your overall health and prevent diseases such as diabetes and heart disease. Monitor your salt (sodium) intake, especially if you have high blood pressure. Talk with your health care provider about your sodium intake. Try to incorporate more vegetarian meals weekly. What foods can I eat? Fruits All fresh, canned (in natural juice), or frozen fruits. Vegetables Fresh or frozen vegetables (raw, steamed, roasted, or grilled). Green salads. Grains Most grains. Choose whole wheat and whole grains most of the time. Rice and pasta, including brown rice and pastas made with whole wheat. Meats and other proteins Lean, well-trimmed beef, veal, pork, and anguiano. Chicken and turkey without skin. All fish and shellfish. Wild duck, rabbit, pheasant, and venison. Egg whites or low-cholesterol egg substitutes. Dried beans, peas, lentils, and tofu. Seeds and most nuts. Dairy Low-fat or nonfat cheeses, including ricotta and mozzarella. Skim or 1% milk (liquid, powdered, or evaporated). Buttermilk made with low-fat milk. Nonfat or low-fat yogurt. Fats and oils Non-hydrogenated (trans-free) margarines. Vegetable oils, including soybean, sesame, sunflower, olive, peanut, safflower, corn, canola, and cottonseed. Salad dressings or mayonnaise made with a vegetable oil. Beverages Water (mineral or sparkling). Coffee and tea. Diet carbonated beverages. Sweets and desserts Sherbet, gelatin, and fruit ice. Small amounts of dark chocolate. Limit all sweets and desserts. Seasonings and condiments All seasonings and condiments. The items listed above may not be a complete list of foods and beverages you can eat. Contact a dietitian for more options. What foods are not recommended? Fruits Canned fruit in heavy syrup. Fruit in cream or butter sauce. Fried fruit. Limit coconut. Vegetables Vegetables cooked in cheese, cream, or butter sauce. Fried vegetables. Grains Breads made with saturated or trans fats, oils, or whole milk. Croissants. Sweet rolls. Donuts. High-fat crackers, such as cheese crackers. Meats and other proteins Fatty meats, such as hot dogs, ribs, sausage, jolley, rib-eye roast or steak. High-fat deli meats, such as salami and bologna. Caviar. Domestic duck and goose. Organ meats, such as liver. Dairy Cream, sour cream, cream cheese, and creamed cottage cheese. Whole milk cheeses. Whole or 2% milk (liquid, evaporated, or condensed). Whole buttermilk. Cream sauce or high-fat cheese sauce. Whole-milk yogurt. Fats and oils Meat fat, or shortening. [place] butter, hydrogenated oils, palm oil, coconut oil, palm kernel oil. Solid fats and shortenings, including jolley fat, salt pork, lard, and butter. Nondairy cream substitutes. Salad dressings with cheese or sour cream. Beverages Regular sodas and any drinks with added sugar. Sweets and desserts Frosting. Pudding. Cookies. Cakes. Pies. Milk chocolate or white chocolate. Buttered syrups. Full-fat ice cream or ice cream drinks. The items listed above may not be a complete list of foods and beverages to avoid. Contact a dietitian for more information. Summary Heart-healthy meal planning includes limiting unhealthy fats, increasing healthy fats, and making other diet and lifestyle changes. Lose weight if you are overweight. Losing just 5 10% of your body weight can help your overall health and prevent diseases such as diabetes and heart disease. Focus on eating a balance of foods, including fruits and vegetables, low-fat or nonfat dairy, lean protein, nuts and legumes, whole grains, and heart-healthy oils and fats. This information is not intended to replace advice given to you by your health care provider. Make sure you discuss any questions you have with your health care provider. Document Released: 08/06/2009 Document Revised: 12/05/2018 Document Reviewed: 12/05/2018 [employer] Patient Education 2020 [employer]. Heart Attack A heart attack occurs when blood and oxygen supply to the heart is cut off. A heart attack causes damage to the heart that cannot be fixed. A heart attack is also called a myocardial infarction, or AL. If you think you are having a heart attack, do not wait to see if the symptoms will go away. Get medical help right away. What are the causes? This condition may be caused by: A fatty substance (plaque) in the blood vessels (arteries). This can block the flow of blood to theheart. A blood clot in the blood vessels that go to the heart. The blood clot blocks blood flow. Low blood pressure. An abnormal heartbeat. Some diseases, such as problems in red blood cells (anemia)orproblems in breathing (respiratory failure). Tightening (spasm) of a blood vessel that cuts off blood to the heart. A tear in a blood vessel of the heart. High blood pressure. What increases the risk? The following factors may make you more likely to develop this condition: Aging. The older you are, the higher your risk. Having a personal or family history of chest pain, heart attack, stroke, or narrowing of the arteries in the legs, arms, head, or stomach (peripheral artery disease). Being male. Smoking. Not getting regular exercise. Being overweight or obese. Having high blood pressure. Having high cholesterol. Having diabetes. Drinking too much alcohol. Using illegal drugs, such as cocaine or methamphetamine. What are the signs or symptoms? Symptoms of this condition include: Chest pain. It may feel like: ? Crushing or squeezing. ? Tightness, pressure, fullness, or heaviness. Pain in the arm, neck, jaw, back, or upper body. Shortness of breath. Heartburn. Upset stomach (indigestion). Feeling like you may vomit (nauseous). Cold sweats. Feeling tired. Sudden light-headedness. How is this treated? A heart attack must be treated as soon as possible. Treatment may include: Medicines to: ? Break up or dissolve blood clots. ? Thin blood and help prevent blood clots. ? Treat blood pressure. ? Improve blood flow to the heart. ? Reduce pain. ? Reduce cholesterol. Procedures to widen a blocked artery and keep it open. Open heart surgery. Receiving oxygen. Making your heart strong again (cardiac rehabilitation) through exercise, education, and counseling. Follow these instructions at home: Medicines Take bkow-vrf-zqbtnkz and prescription medicines only as told by your doctor. You may need to take medicine: ? To keep your blood from clotting too easily. ? To control blood pressure. ? To lower cholesterol. ? To control heart rhythms. Do not take these medicines unless your doctor says it is okay: ? NSAIDs, such as ibuprofen. ? Supplements that have vitamin A, vitamin E, or both. ? Hormone replacement therapy that has estrogen with or without progestin. Lifestyle Do not use any products that have nicotine or tobacco, such as cigarettes, e- cigarettes, and chewing tobacco. If you need help quitting, ask your doctor. Avoid secondhand smoke. Exercise regularly. Ask your doctor about a cardiac rehab program. Eat heart-healthy foods. Your doctor will tell you what foods to eat. Stay at a healthy weight. Lower your stress level. Do not use illegal drugs. Alcohol use Do not drink alcohol if: ? Your doctor tells you not to drink. ? You are , may be , or are planning to become . If you drink alcohol: ? Limit how much you use to: ? 0 1 drink a day for women. ? 0 2 drinks a day for men. ? Know how much alcohol is in your drink. In the [place] one drink equals one 12 oz bottle of beer (355mL), one 5 oz glass of wine (148 mL), or one 1 oz glass of hard liquor (44 mL). General instructions Work with your doctor to treat other problems you may have, such as diabetes or high blood pressure. Get screened for depression. Get treatment if needed. Keep your vaccines up to date. Get the flu shot (influenza vaccine) every year. Keep all follow-up visits as told by your doctor. This is important. Contact a doctor if: You feel very sad. You have trouble doing your daily activities. Get help right away if: You have sudden, unexplained discomfort in your chest, arms, back, neck, jaw, or upper body. You have shortness of breath. You have sudden sweating or clammy skin. You feel like you may vomit. You vomit. You feel tired or weak. You get light-headed or dizzy. You feel your heart beating fast. You feel your heart skipping beats. You have blood pressure that is higher than 180/120. These symptoms may be an emergency. Do not wait to see if the symptoms will go away. Get medical help right away. Call your local emergency services (911 in the [place] Do not drive yourself to the hospital. Summary A heart attack occurs when blood and oxygen supply to the heart is cut off. Do not take NSAIDs unless your doctor says it is okay. Do not smoke. Avoid secondhand smoke. Exercise regularly. Ask your doctor about a cardiac rehab program. This information is not intended to replace advice given to you by your health care provider. Make sure you discuss any questions you have with your health care provider. Document Released: 04/28/2013 Document Revised: 02/08/2020 Document Reviewed: 02/08/2020 [employer] Patient Education 2020 [employer] Additional Information VACCINATE! IT SAVES LIVES! Members of the community who have not yet received the COVID-19 vaccine and would like to receive it can visit one of [facility] vaccine clinics. There are many vaccine clinic locations within the [facility]. For locations and available times, please visit [email or web address].[place].gov/. It is important to note that some COVID mobile vaccine clinics are held outdoors and may be canceled in rainy or stormy conditions. To learn more about pediatric vaccinations (ages 5-11), we invite you to visit the [facility] webpage. [email or web address] learn more about the COVID-19 vaccine, we invite you to visit the CDC website for a list of frequently asked questions.https://www.cdc.gov/coronavirus/2019-ncov/vaccines/faq.html [facility] Patient Portal Access Instructions: Stay connected with your healthcare team and access your personal medical information anytime with the [facility] Patient Portal. Please follow the directions below to create your [facility] account: 1.Access the email account you provided upon registration to the hospital/physician office.2.Look for an invitation email from [facility].3.Open the email and access the invitation link: AcceptInvitation to [facility].4.Fill in the required randle to create your account. To access your account, visit [facility]. Click the blue button labeled "Access Patient Portal" and then log in with the username and password that you created in the steps above. You will be able to view your test results, lab results, a summary of your visits, upcoming appointments and more. There is also a convenient messaging option where you can send secure messages to your p rovider. In addition, you will have the ability to download any documents or summaries to your computer and/or send the information securely to a physician. Remember that your healthcare information is confidential, so carefully consider who you will allowto register on the [facility] Patient Portal for access to your information. You can also access the [facility] Patient Portal on the [facility] larissa. Simply click on "Patient Portal" and then log into your account. If you would like to receive a full copy of your medical records, please contact the [facility] Medical Records Department by calling [phone], Saturday through Saturday between 8 a.m. and 4:30 p.m. HOW TO SAFELY DISPOSE OF PRESCRIPTION MEDICATIONS Please use one of the following methods to safely dispose of your unused medications. 1.Use a drug disposal kit: the drug disposal pouch allows you to safely discard your old and unuseddrugs. Ask your nurse to give you one when you are discharged.2.Visit a local take-back location: Many local pharmacies and police departments have programs that collect old and unwanted prescriptiondrugs. Call your local pharmacy or go to http://[employer]/2N1Tx9e to find one close to you.3.Make use of household items: Use cat litter or old coffee grounds to dispose medications if other options arenot available. Mix your drugs with these household products, seal them in an airtight container andthrow it into the garbage. Call [facility]: [phone] to be sure your drugs can be disposed of in this way. Some medicines may require a different approach.4.Never flush your medications down the toilet. IF YOU HAVE BEEN PRESCRIBED AN OPIOID FOR PAIN If you have been prescribed [...] have withdrawal symptoms when a medication is stopped, can develop within a few days. KNOW [...] children, family, friends and visitors). The last page of this document has been signed and retained as a CHART COPY. Signatures Patient Education Materials Heart-Healthy Eating Plan Heart Attack, Egsk-wk-Fyue Medication Leaflets aspirin (oral) My discharge plan and instructions have been reviewed and explained to me and I,STEVEN KOENIG understand my current condition and have read and understand these discharge instructions. I have received a written copy of the plan/instructions. If I have questions, I am aware that I should contact my doctor. 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 Signature: Date/Time: Relationship to Patient: Witness Name/Signature: Date/Time[id number] Discharge instructions Patient Education 06/14/2025 17:01:26 Heart-Healthy Eating Plan Heart-Healthy Eating Plan Many factors influence your heart (coronary) health, including eating and exercise habits. Coronaryrisk increases with abnormal blood fat (lipid) levels. Heart-healthy meal planning includes limiting unhealthy fats, increasing healthy fats, and making other diet and lifestyle changes. What is my plan? Your health care provider may recommend that you: Limit your fat intake to % or less of your total calories each day. Limit your saturated fat intake to % or less of your total calories each day. Limit the amount of cholesterol in your diet to less than mg per day. What are tips for following this plan? Cooking Cook foods using methods other than frying. Baking, boiling, grilling, and broiling are all good options. Other ways to reduce fat include: Removing the skin from poultry. Removing all visible fats from meats. Steaming vegetables in water or broth. Meal planning At meals, imagine dividing your plate into fourths: ?Fill one-half of your plate with vegetables and green salads. ?Fill one-fourth of your plate with whole grains. ?Fill one-fourth of your plate with lean protein foods. Eat 4 5 servings of vegetables per day. One serving equals 1 cup raw or cooked vegetable, or 2 cupsraw leafy greens. Eat 4 5 servings of fruit per day. One serving equals 1 medium whole fruit, cup dried fruit, cup fresh, frozen, or canned fruit, or cup 100% fruit juice. Eat more foods that contain soluble fiber. Examples include apples, broccoli, carrots, beans, peas,and barley. Aim to get 25 30 g of fiber per day. Increase your consumption of legumes, nuts, and seeds to 4 5 servings per week. One serving of dried beans or legumes equals cup cooked, 1 serving of nuts is cup, and 1 serving of seeds equals 1 tablespoon. Fats Choose healthy fats more often. Choose monounsaturated and polyunsaturated fats, such as olive and canola oils, flaxseeds, walnuts, almonds, and seeds. Eat more omega-3 fats. Choose salmon, mackerel, sardines, tuna, flaxseed oil, and ground flaxseeds.Aim to eat fish at least 2 times each week. Check food labels carefully to identify foods with trans fats or high amounts of saturated fat. Limit saturated fats. These are found in animal products, such as meats, butter, and cream. Plant sources of saturated fats include palm oil, palm kernel oil, and coconut oil. Avoid foods with partially hydrogenated oils in them. These contain trans fats. Examples are stick margarine, some tub margarines, cookies, crackers, and other baked goods. Avoid fried foods. General information Eat more home-cooked food and less restaurant, buffet, and fast food. Limit or avoid alcohol. Limit foods that are high in starch and sugar. Lose weight if you are overweight. Losing just 5 10% of your body weight can help your overall health and prevent diseases such as diabetes and heart disease. Monitor your salt (sodium) intake, especially if you have high blood pressure. Talk with your health care provider about your sodium intake. Try to incorporate more vegetarian meals weekly. What foods can I eat? Fruits All fresh, canned (in natural juice), or frozen fruits. Vegetables Fresh or frozen vegetables (raw, steamed, roasted, or grilled). Green salads. Grains Most grains. Choose whole wheat and whole grains most of the time. Rice and pasta, including brown rice and pastas made with whole wheat. Meats and other proteins Lean, well-trimmed beef, veal, pork, and anguiano. Chicken and turkey without skin. All fish and shellfish. Wild duck, rabbit, pheasant, and venison. Egg whites or low-cholesterol egg substitutes. Dried beans, peas, lentils, and tofu. Seeds and most nuts. Dairy Low-fat or nonfat cheeses, including ricotta and mozzarella. Skim or 1% milk (liquid, powdered, or evaporated). Buttermilk made with low-fat milk. Nonfat or low-fat yogurt. Fats and oils Non-hydrogenated (trans-free) margarines. Vegetable oils, including soybean, sesame, sunflower, olive, peanut, safflower, corn, canola, and cottonseed. Salad dressings or mayonnaise made with a vegetable oil. Beverages Water (mineral or sparkling). Coffee and tea. Diet carbonated beverages. Sweets and desserts Sherbet, gelatin, and fruit ice. Small amounts of dark chocolate. Limit all sweets and desserts. Seasonings and condiments All seasonings and condiments. The items listed above may not be a complete list of foods and beverages you can eat. Contact a dietitian for more options. What foods are not recommended? Fruits Canned fruit in heavy syrup. Fruit in cream or butter sauce. Fried fruit. Limit coconut. Vegetables Vegetables cooked in cheese, cream, or butter sauce. Fried vegetables. Grains Breads made with saturated or trans fats, oils, or whole milk. Croissants. Sweet rolls. Donuts. High-fat crackers, such as cheese crackers. Meats and other proteins Fatty meats, such as hot dogs, ribs, sausage, jolley, rib-eye roast or steak. High-fat deli meats, such as salami and bologna. Caviar. Domestic duck and goose. Organ meats, such as liver. Dairy Cream, sour cream, cream cheese, and creamed cottage cheese. Whole milk cheeses. Whole or 2% milk (liquid, evaporated, or condensed). Whole buttermilk. Cream sauce or high-fat cheese sauce. Whole-milk yogurt. Fats and oils Meat fat, or shortening. [place] butter, hydrogenated oils, palm oil, coconut oil, palm kernel oil. Solid fats and shortenings, including jolley fat, salt pork, lard, and butter. Nondairy cream substitutes. Salad dressings with cheese or sour cream. Beverages Regular sodas and any drinks with added sugar. Sweets and desserts Frosting. Pudding. Cookies. Cakes. Pies. Milk chocolate or white chocolate. Buttered syrups. Full-fat ice cream or ice cream drinks. The items listed above may not be a complete list of foods and beverages to avoid. Contact a dietitian for more information. Summary Heart-healthy meal planning includes limiting unhealthy fats, increasing healthy fats, and making other diet and lifestyle changes. Lose weight if you are overweight. Losing just 5 10% of your body weight can help your overall health and prevent diseases such as diabetes and heart disease. Focus on eating a balance of foods, including fruits and vegetables, low-fat or nonfat dairy, lean protein, nuts and legumes, whole grains, and heart-healthy oils and fats. This information is not intended to replace advice given to you by your health care provider. Make sure you discuss any questions you have with your health care provider. Document Released: 08/06/2009 Document Revised: 12/05/2018 Document Reviewed: 12/05/2018 [employer] Patient Education 2020 [employer] 06/14/2025 17:01:25 Heart Attack, Fqbw-pu-Dzwe Heart Attack A heart attack occurs when blood and oxygen supply to the heart is cut off. A heart attack causes damage to the heart that cannot be fixed. A heart attack is also called a myocardial infarction, or AL. If you think you are having a heart attack, do not wait to see if the symptoms will go away. Get medical help right away. What are the causes? This condition may be caused by: A fatty substance (plaque) in the blood vessels (arteries). This can block the flow of blood to theheart. A blood clot in the blood vessels that go to the heart. The blood clot blocks blood flow. Low blood pressure. An abnormal heartbeat. Some diseases, such as problems in red blood cells (anemia)orproblems in breathing (respiratory failure). Tightening (spasm) of a blood vessel that cuts off blood to the heart. A tear in a blood vessel of the heart. High blood pressure. What increases the risk? The following factors may make you more likely to develop this condition: Aging. The older you are, the higher your risk. Having a personal or family history of chest pain, heart attack, stroke, or narrowing of the arteries in the legs, arms, head, or stomach (peripheral artery disease). Being male. Smoking. Not getting regular exercise. Being overweight or obese. Having high blood pressure. Having high cholesterol. Having diabetes. Drinking too much alcohol. Using illegal drugs, such as cocaine or methamphetamine. What are the signs or symptoms? Symptoms of this condition include: Chest pain. It may feel like: ?Crushing or squeezing. ?Tightness, pressure, fullness, or heaviness. Pain in the arm, neck, jaw, back, or upper body. Shortness of breath. Heartburn. Upset stomach (indigestion). Feeling like you may vomit (nauseous). Cold sweats. Feeling tired. Sudden light-headedness. How is this treated? A heart attack must be treated as soon as possible. Treatment may include: Medicines to: ?Break up or dissolve blood clots. ?Thin blood and help prevent blood clots. ?Treat blood pressure. ?Improve blood flow to the heart. ?Reduce pain. ?Reduce cholesterol. Procedures to widen a blocked artery and keep it open. Open heart surgery. Receiving oxygen. Making your heart strong again (cardiac rehabilitation) through exercise, education, and counseling. Follow these instructions at home: Medicines Take eaur-spz-dmitema and prescription medicines only as told by your doctor. You may need to take medicine: ?To keep your blood from clotting too easily. ?To control blood pressure. ?To lower cholesterol. ?To control heart rhythms. Do not take these medicines unless your doctor says it is okay: ?NSAIDs, such as ibuprofen. ?Supplements that have vitamin A, vitamin E, or both. ?Hormone replacement therapy that has estrogen with or without progestin. Lifestyle Do not use any products that have nicotine or tobacco, such as cigarettes, e- cigarettes, and chewing tobacco. If you need help quitting, ask your doctor. Avoid secondhand smoke. Exercise regularly. Ask your doctor about a cardiac rehab program. Eat heart-healthy foods. Your doctor will tell you what foods to eat. Stay at a healthy weight. Lower your stress level. Do not use illegal drugs. Alcohol use Do not drink alcohol if: ?Your doctor tells you not to drink. ?You are , may be , or are planning to become . If you drink alcohol: ?Limit how much you use to: ?0 1 drink a day for women. ?0 2 drinks a day for men. ?Know how much alcohol is in your drink. In the [place] one drink equals one 12 oz bottle of beer (355 mL), one 5 oz glass of wine (148 mL), or one 1 oz glass of hard liquor (44 mL). General instructions Work with your doctor to treat other problems you may have, such as diabetes or high blood pressure. Get screened for depression. Get treatment if needed. Keep your vaccines up to date. Get the flu shot (influenza vaccine) every year. Keep all follow-up visits as told by your doctor. This is important. Contact a doctor if: You feel very sad. You have trouble doing your daily activities. Get help right away if: You have sudden, unexplained discomfort in your chest, arms, back, neck, jaw, or upper body. You have shortness of breath. You have sudden sweating or clammy skin. You feel like you may vomit. You vomit. You feel tired or weak. You get light-headed or dizzy. You feel your heart beating fast. You feel your heart skipping beats. You have blood pressure that is higher than 180/120. These symptoms may be an emergency. Do not wait to see if the symptoms will go away. Get medical help right away. Call your local emergency services (911 in the [place] Do not drive yourself to the hospital. Summary A heart attack occurs when blood and oxygen supply to the heart is cut off. Do not take NSAIDs unless your doctor says it is okay. Do not smoke. Avoid secondhand smoke. Exercise regularly. Ask your doctor about a cardiac rehab program. This information is not intended to replace advice given to you by your health care provider. Make sure you discuss any questions you have with your health care provider. Document Released: 04/28/2013 Document Revised: 02/08/2020 Document Reviewed: 02/08/2020 [employer] Patient Education 2020 [employer] Follow Up Care 06/12/2025 16:27:27 With:XAVIER GONZALEZ MD Address: [address] [place] [phone] When:Within 2 Week(s) [facility] 08-04-2025 Note Discharge Instructions Thank you for allowing [facility] to assist you with your healthcare needs. The following is importantdischarge information regarding your hospital visit. Your Care Team EMMA QUEEN DO Your Diagnosis CAD in [place] artery COPD with chronic bronchitis Psychophysiologic insomnia Stented coronary artery What to do next Scheduled Follow-Up Appointments Appointment Type When With Where Contact Information StatusPC OV 07/30/2025 10:00 AM EDT EMMA QUEEN DO [address] [id number] Confirmed Follow Up Appointments Follow Up with XAVIER GONZALEZ MD When:In 2 weeks Where:[address] [place] [id number] The Following Activity and Diet Have Been Ordered for You Discharge Activity - Ordered -- NO activity restrictions, 06/14/25 16:52:00 EDT Discharge Diet - Ordered -- Type of Diet: Regular Diet, Diet Restrictions: Low sodium, Sodium limit: 2 gm, 06/12/25 19:20:00EDT Discharge Diet - Ordered -- Type of Diet: Regular, 06/14/25 16:52:00 EDT The Following Equipment Has Been Ordered for You No qualifying data available. The Following Treatments Have Been Ordered for You Discharge Labs Discharge Outpatient Labwork - Ordered -- BMP, Follow-up, Draw 3 days after discharge, 06/12/25 19:20:00 EDT Discharge Outpatient Labwork - Ordered -- PT/INR, If on Warfarin, 3 days after discharge, 06/12/25 19:20:00 EDT Discharge Outpatient Labwork - Ordered -- Digoxin level, Follow-up, 06/12/25 19:20:00 EDT Discharge Radiology No qualifying data available. Other Therapies No qualifying data available. Post Acute Orders No qualifying data available. Someone Will Contact You Regarding These Home Health Referrals No home referrals have been ordered for you. No one will call you. Allergies NKA Medications Please ask your primary doctor or pharmacist before taking any other medication not listed, including over the counter drugs, herbal medications, vitamins and or supplements as they may interact withyour home medications. What How Much When Why Instructions Last Dose New empagliflozin (Jardiance 10 mg oral tablet) 1 tab(s) by mouth Once a day (in the morning) Pickup at [facility]/pharmacy #[id number] Unchanged albuterol (albuterol MDI (90 mcg/ inh) CFC free inhalation aerosol) 2 puff(s) by inhalation Four (4) times a day as needed for as needed for wheezing COPD with chronic bronchitis Unchanged albuterol (albuterol 0.63 mg/ 3 mL (0.021%) inhalation solution) 3 Milliliter by inhalation Four (4) times a day Unchanged aspirin (aspirin 81 mg oral tablet, chewable) 81 Milligram Chewed Once a day Stented coronary artery CAD in [place] artery Unchanged busPIRone (busPIRone 5 mg oral tablet) 1 tab(s) by mouth Three (3) times a day Duration: 30 Days Unchanged caffeine (caffeine 200 mg oral tablet) 1 tab(s) by mouth Every 4 hours plus green tea extract 220mg Unchanged clopidogrel (clopidogrel 75 mg oral tablet) 1 tab(s) by mouth Every day Unchanged DME (Nebulizer (Compressor)) See instructions COPD with chronic bronchitis Nebulizer machine and supplies Unchanged fluticasone/ umeclidinium/ vilanterol (Trelegy Ellipta 200 mcg-62.5 mcg-25 mcg/ inh inhalation powder) 1 puff(s) by inhalation Once a day at the same time every day Unchanged furosemide (Lasix 40 mg oral tablet) 1 tab(s) by mouth Once a day Pickup at [facility]/pharmacy #[id number] Unchanged metoprolol (metoprolol succinate 50 mg oral TABLET extended release) 1 tab(s) by mouth Once a day Do not crush or chew (controlled release) Pickup at [facility]/pharmacy #[id number] Unchanged pantoprazole (Protonix 20 mg oral enteric coated tablet) 2 tab(s) by mouth Once a day before a meal Unchanged rosuvastatin (Crestor 20 mg oral tablet) 1 tab(s) by mouth Once a day Unchanged sacubitril-valsartan (Entresto 24 mg-26 mg oral tablet) 1 tab(s) by mouth Two (2) times a day Pickup at [facility]/pharmacy #[id number] Unchanged traZODone (traZODone 100 mg oral tablet) 1 tab(s) by mouth Daily at bedtime Psychophysiologic insomnia Pharmacy Information [facility]/pharmacy #[id number]: [address], [place] [id number] [phone] What How Much When Comments Stop Taking amLODIPine (amLODIPine 5 mg oral tablet) 1 tab(s) by mouth Once a day Stop Taking ePHEDrine (Bronkaid Max 25 mg oral tablet) 1 tab(s) by mouth Every 4 hours not to exceed 6 tablets/ day Please take this list to your next doctor s visit. Bring all medications you take, including over the counter medications, herbals and other supplements with you to your doctor s visit. Patients and families are reminded to discard old lists and to update any records with all medication providers or retail pharmacies. Medication Leaflets aspirin (oral) ( pir in) Aspi-Cor, Cisco Plus, Ecotrin, Miniprin, [place] What is the most important information I should know about aspirin? Aspirin can cause Genaro's syndrome, a serious and sometimes fatal condition in children. What is aspirin? Aspirin is a salicylate (fc-SXZ-wh-ate) that is used to treat pain, and reduce fever or inflammation. Aspirin is sometimes used to treat or prevent heart attacks, strokes, and chest pain (angina). Aspirin should be used for these conditions only under the supervision of a doctor. Aspirin may also be used for purposes not listed in this medication guide. What should I discuss with my healthcare provider before taking aspirin? Using aspirin in a child or teenager with flu symptoms or chickenpox can cause a serious or fatal condition called Genaro's syndrome. You should not use aspirin if you are allergic to it, or if you have: a recent history of stomach or intestinal bleeding; a bleeding disorder such as hemophilia; or if you have ever had an asthma attack or severe allergic reaction after taking aspirin or an NSAID (non-steroidal anti-inflammatory drug). Tell your doctor if you have ever had: asthma or seasonal allergies; stomach ulcers; liver disease; kidney disease; a bleeding or blood clotting disorder; gout; or heart disease, high blood pressure, or congestive heart failure. Taking aspirin during late may cause bleeding in the mother or the baby during delivery. Tell your doctor if you are or plan to become . You should not breastfeed while using this medicine. How should I take aspirin? Use exactly as directed on the label, or as prescribed by your doctor. Always follow directions on the medicine label about giving aspirin to a child. Take with food if aspirin upsets your stomach. You must chew the chewable tablet before you swallow it. Do not crush, chew, break, or open an enteric-coated or delayed/extended-release pill. Swallow it whole. Tell your doctor if you have a planned surgery. Store at room temperature away from moisture and heat. Do not use aspirin if you smell a strong vinegar odor in the aspirin bottle. The medicine may no longer be effective. What happens if I miss a dose? Aspirin is used when needed. If you are on a dosing schedule, skip any missed dose. Do not use two doses at one time. What happens if I overdose? Seek emergency medical attention or call the Poison Help line at . Overdose may cause stomach pain, vomiting, diarrhea, vision or hearing problems, fast or slow breathing, or confusion. What should I avoid while taking aspirin? Avoid alcohol. Heavy drinking can increase your risk of stomach bleeding. Avoid taking ibuprofen if you take aspirin to prevent stroke or heart attack. Ibuprofen can make aspirin less effective in protecting your heart and blood vessels. Ask your doctor how far apart your doses should be. Ask a doctor or pharmacist before using other medicines for pain, fever, swelling, or cold/flu symptoms. They may contain ingredients similar to aspirin (such as magnesium salicylate, ibuprofen, ketoprofen, or naproxen). What are the possible side effects of aspirin? Get emergency medical help if you have signs of an allergic reaction: hives; difficult breathing; swelling of your face, lips, tongue, or throat. Stop using aspirin and call your doctor at once if you have: ringing in your ears, confusion, hallucinations, rapid breathing, seizure (convulsions); severe nausea, vomiting, or stomach pain; bloody or tarry stools, coughing up blood or vomit that looks like coffee grounds; fever lasting longer than 3 days; or swelling, or pain lasting longer than 10 days. Common side effects may include: upset stomach, heartburn; drowsiness; or mild headache. This is not a complete list of side effects and others may occur. Call your doctor for medical advice about side effects. You may report side effects to FDA at 1-826-KQP-8547. What other drugs will affect aspirin? Ask your doctor before using aspirin if you take an antidepressant. Taking certain antidepressants with aspirin may cause you to bruise or bleed easily. Ask a doctor or pharmacist before using aspirin with any other medications, especially: a blood thinner (warfarin, Coumadin, Jantoven), or other medication used to prevent blood clots; or other salicylates such as Nuprin Backache Caplet, Kaopectate, KneeRelief, Pamprin Cramp Formula, Pepto-Bismol, Tricosal, Trilisate, and others. This list is not complete. Other drugs may affect aspirin, including prescription and pybu-jsa-nyvvkzc medicines, vitamins, and herbal products. Not all possible drug interactions are listed here. Where can I get more information? Your pharmacist can provide more information about aspirin. Remember, keep this and all other medicines out of the reach of children, never share your medicines with others, and use this medication only for the indication prescribed. Every effort has been made to ensure that the information provided by [employer]. ('H[employer]') is accurate, up-to-date, and complete, but no guarantee is made to that effect. Drug information contained herein may be time sensitive. [employer] information has been compiled for use by healthcare practitioners and consumers in the [place] and therefore [employer] does not warrant that uses outside of the [place] are appropriate, unless specifically indicated otherwise. [employer] drug information does not endorse drugs, diagnose patients or recommend therapy. [facility] drug information isan informational resource designed to assist licensed healthcare practitioners in caring for their p atients and/or to serve consumers viewing this service as a supplement to, and not a substitute for, the expertise, skill, knowledge and judgment of healthcare practitioners. The absence of a warningfor a given drug or drug combination in no way should be construed to indicate that the drug or drug combination is safe, effective or appropriate for any given patient. [facility] does not assume any responsibility for any aspect of healthcare administered with the aid of information [facility] provides. The information contained herein is not intended to cover all possible uses, directions, precautions, warnings, drug interactions, allergic reactions, or adverse effects. If you have questions about the drugs you are taking, check with your doctor, nurse or pharmacist. Copyright 5430-5054 [facility] [employer]. Version: 18.. Revision Date: 10/28/2024. Education Materials Heart-Healthy Eating Plan Many factors influence your heart (coronary) health, including eating and exercise habits. Coronaryrisk increases with abnormal blood fat (lipid) levels. Heart-healthy meal planning includes limiting unhealthy fats, increasing healthy fats, and making other diet and lifestyle changes. What is my plan? Your health care provider may recommend that you: Limit your fat intake to % or less of your total calories each day. Limit your saturated fat intake to % or less of your total calories each day. Limit the amount of cholesterol in your diet to less than mg per day. What are tips for following this plan? Cooking Cook foods using methods other than frying. Baking, boiling, grilling, and broiling are all good options. Other ways to reduce fat include: Removing the skin from poultry. Removing all visible fats from meats. Steaming vegetables in water or broth. Meal planning At meals, imagine dividing your plate into fourths: ? Fill one-half of your plate with vegetables and green salads. ? Fill one-fourth of your plate with whole grains. ? Fill one-fourth of your plate with lean protein foods. Eat 4 5 servings of vegetables per day. One serving equals 1 cup raw or cooked vegetable, or 2 cupsraw leafy greens. Eat 4 5 servings of fruit per day. One serving equals 1 medium whole fruit, cup dried fruit, cup fresh, frozen, or canned fruit, or cup 100% fruit juice. Eat more foods that contain soluble fiber. Examples include apples, broccoli, carrots, beans, peas,and barley. Aim to get 25 30 g of fiber per day. Increase your consumption of legumes, nuts, and seeds to 4 5 servings per week. One serving of dried beans or legumes equals cup cooked, 1 serving of nuts is cup, and 1 serving of seeds equals 1 tablespoon. Fats Choose healthy fats more often. Choose monounsaturated and polyunsaturated fats, such as olive and canola oils, flaxseeds, walnuts, almonds, and seeds. Eat more omega-3 fats. Choose salmon, mackerel, sardines, tuna, flaxseed oil, and ground flaxseeds.Aim to eat fish at least 2 times each week. Check food labels carefully to identify foods with trans fats or high amounts of saturated fat. Limit saturated fats. These are found in animal products, such as meats, butter, and cream. Plant sources of saturated fats include palm oil, palm kernel oil, and coconut oil. Avoid foods with partially hydrogenated oils in them. These contain trans fats. Examples are stick margarine, some tub margarines, cookies, crackers, and other baked goods. Avoid fried foods. General information Eat more home-cooked food and less restaurant, buffet, and fast food. Limit or avoid alcohol. Limit foods that are high in starch and sugar. Lose weight if you are overweight. Losing just 5 10% of your body weight can help your overall health and prevent diseases such as diabetes and heart disease. Monitor your salt (sodium) intake, especially if you have high blood pressure. Talk with your health care provider about your sodium intake. Try to incorporate more vegetarian meals weekly. What foods can I eat? Fruits All fresh, canned (in natural juice), or frozen fruits. Vegetables Fresh or frozen vegetables (raw, steamed, roasted, or grilled). Green salads. Grains Most grains. Choose whole wheat and whole grains most of the time. Rice and pasta, including brown rice and pastas made with whole wheat. Meats and other proteins Lean, well-trimmed beef, veal, pork, and anguiano. Chicken and turkey without skin. All fish and shellfish. Wild duck, rabbit, pheasant, and venison. Egg whites or low-cholesterol egg substitutes. Dried beans, peas, lentils, and tofu. Seeds and most nuts. Dairy Low-fat or nonfat cheeses, including ricotta and mozzarella. Skim or 1% milk (liquid, powdered, or evaporated). Buttermilk made with low-fat milk. Nonfat or low-fat yogurt. Fats and oils Non-hydrogenated (trans-free) margarines. Vegetable oils, including soybean, sesame, sunflower, olive, peanut, safflower, corn, canola, and cottonseed. Salad dressings or mayonnaise made with a vegetable oil. Beverages Water (mineral or sparkling). Coffee and tea. Diet carbonated beverages. Sweets and desserts Sherbet, gelatin, and fruit ice. Small amounts of dark chocolate. Limit all sweets and desserts. Seasonings and condiments All seasonings and condiments. The items listed above may not be a complete list of foods and beverages you can eat. Contact a dietitian for more options. What foods are not recommended? Fruits Canned fruit in heavy syrup. Fruit in cream or butter sauce. Fried fruit. Limit coconut. Vegetables Vegetables cooked in cheese, cream, or butter sauce. Fried vegetables. Grains Breads made with saturated or trans fats, oils, or whole milk. Croissants. Sweet rolls. Donuts. High-fat crackers, such as cheese crackers. Meats and other proteins Fatty meats, such as hot dogs, ribs, sausage, jolley, rib-eye roast or steak. High-fat deli meats, such as salami and bologna. Caviar. Domestic duck and goose. Organ meats, such as liver. Dairy Cream, sour cream, cream cheese, and creamed cottage cheese. Whole milk cheeses. Whole or 2% milk (liquid, evaporated, or condensed). Whole buttermilk. Cream sauce or high-fat cheese sauce. Whole-milk yogurt. Fats and oils Meat fat, or shortening. [place] butter, hydrogenated oils, palm oil, coconut oil, palm kernel oil. Solid fats and shortenings, including jolley fat, salt pork, lard, and butter. Nondairy cream substitutes. Salad dressings with cheese or sour cream. Beverages Regular sodas and any drinks with added sugar. Sweets and desserts Frosting. Pudding. Cookies. Cakes. Pies. Milk chocolate or white chocolate. Buttered syrups. Full-fat ice cream or ice cream drinks. The items listed above may not be a complete list of foods and beverages to avoid. Contact a dietitian for more information. Summary Heart-healthy meal planning includes limiting unhealthy fats, increasing healthy fats, and making other diet and lifestyle changes. Lose weight if you are overweight. Losing just 5 10% of your body weight can help your overall health and prevent diseases such as diabetes and heart disease. Focus on eating a balance of foods, including fruits and vegetables, low-fat or nonfat dairy, lean protein, nuts and legumes, whole grains, and heart-healthy oils and fats. This information is not intended to replace advice given to you by your health care provider. Make sure you discuss any questions you have with your health care provider. Document Released: 08/06/2009 Document Revised: 12/05/2018 Document Reviewed: 12/05/2018 [employer] Patient Education 2020 [employer]. Heart Attack A heart attack occurs when blood and oxygen supply to the heart is cut off. A heart attack causes damage to the heart that cannot be fixed. A heart attack is also called a myocardial infarction, or AL. If you think you are having a heart attack, do not wait to see if the symptoms will go away. Get medical help right away. What are the causes? This condition may be caused by: A fatty substance (plaque) in the blood vessels (arteries). This can block the flow of blood to theheart. A blood clot in the blood vessels that go to the heart. The blood clot blocks blood flow. Low blood pressure. An abnormal heartbeat. Some diseases, such as problems in red blood cells (anemia)orproblems in breathing (respiratory failure). Tightening (spasm) of a blood vessel that cuts off blood to the heart. A tear in a blood vessel of the heart. High blood pressure. What increases the risk? The following factors may make you more likely to develop this condition: Aging. The older you are, the higher your risk. Having a personal or family history of chest pain, heart attack, stroke, or narrowing of the arteries in the legs, arms, head, or stomach (peripheral artery disease). Being male. Smoking. Not getting regular exercise. Being overweight or obese. Having high blood pressure. Having high cholesterol. Having diabetes. Drinking too much alcohol. Using illegal drugs, such as cocaine or methamphetamine. What are the signs or symptoms? Symptoms of this condition include: Chest pain. It may feel like: ? Crushing or squeezing. ? Tightness, pressure, fullness, or heaviness. Pain in the arm, neck, jaw, back, or upper body. Shortness of breath. Heartburn. Upset stomach (indigestion). Feeling like you may vomit (nauseous). Cold sweats. Feeling tired. Sudden light-headedness. How is this treated? A heart attack must be treated as soon as possible. Treatment may include: Medicines to: ? Break up or dissolve blood clots. ? Thin blood and help prevent blood clots. ? Treat blood pressure. ? Improve blood flow to the heart. ? Reduce pain. ? Reduce cholesterol. Procedures to widen a blocked artery and keep it open. Open heart surgery. Receiving oxygen. Making your heart strong again (cardiac rehabilitation) through exercise, education, and counseling. Follow these instructions at home: Medicines Take cxad-mvf-vaarqyr and prescription medicines only as told by your doctor. You may need to take medicine: ? To keep your blood from clotting too easily. ? To control blood pressure. ? To lower cholesterol. ? To control heart rhythms. Do not take these medicines unless your doctor says it is okay: ? NSAIDs, such as ibuprofen. ? Supplements that have vitamin A, vitamin E, or both. ? Hormone replacement therapy that has estrogen with or without progestin. Lifestyle Do not use any products that have nicotine or tobacco, such as cigarettes, e- cigarettes, and chewing tobacco. If you need help quitting, ask your doctor. Avoid secondhand smoke. Exercise regularly. Ask your doctor about a cardiac rehab program. Eat heart-healthy foods. Your doctor will tell you what foods to eat. Stay at a healthy weight. Lower your stress level. Do not use illegal drugs. Alcohol use Do not drink alcohol if: ? Your doctor tells you not to drink. ? You are , may be , or are planning to become . If you drink alcohol: ? Limit how much you use to: ? 0 1 drink a day for women. ? 0 2 drinks a day for men. ? Know how much alcohol is in your drink. In the [place] one drink equals one 12 oz bottle of beer (355mL), one 5 oz glass of wine (148 mL), or one 1 oz glass of hard liquor (44 mL). General instructions Work with your doctor to treat other problems you may have, such as diabetes or high blood pressure. Get screened for depression. Get treatment if needed. Keep your vaccines up to date. Get the flu shot (influenza vaccine) every year. Keep all follow-up visits as told by your doctor. This is important. Contact a doctor if: You feel very sad. You have trouble doing your daily activities. Get help right away if: You have sudden, unexplained discomfort in your chest, arms, back, neck, jaw, or upper body. You have shortness of breath. You have sudden sweating or clammy skin. You feel like you may vomit. You vomit. You feel tired or weak. You get light-headed or dizzy. You feel your heart beating fast. You feel your heart skipping beats. You have blood pressure that is higher than 180/120. These symptoms may be an emergency. Do not wait to see if the symptoms will go away. Get medical help right away. Call your local emergency services (911 in the [place] Do not drive yourself to the hospital. Summary A heart attack occurs when blood and oxygen supply to the heart is cut off. Do not take NSAIDs unless your doctor says it is okay. Do not smoke. Avoid secondhand smoke. Exercise regularly. Ask your doctor about a cardiac rehab program. This information is not intended to replace advice given to you by your health care provider. Make sure you discuss any questions you have with your health care provider. Document Released: 04/28/2013 Document Revised: 02/08/2020 Document Reviewed: 02/08/2020 Elsevier Patient Education 2020 [employer]. Additional Information VACCINATE! IT SAVES LIVES! Members of the community who have not yet received the COVID-19 vaccine and would like to receive it can visit one of [facility] vaccine clinics. There are many vaccine clinic locations within the [facility]. For locations and available times, please visit [email or web address].[place].gov/. It is important to note that some COVID mobile vaccine clinics are held outdoors and may be canceled in rainy or stormy conditions. To learn more about pediatric vaccinations (ages 5-11), we invite you to visit the [facility] webpage. [email or web address]/[email or web address] [email or web address] learn more about the COVID-19 vaccine, we invite you to visit the CDC website for a list of frequently asked questions.https://www.cdc.gov/coronavirus/2019-ncov/vaccines/faq.html [facility] Patient Portal Access Instructions: Stay connected with your healthcare team and access your personal medical information anytime with the [facility] Patient Portal. Please follow the directions below to create your [facility] account: 1.Access the email account you provided upon registration to the hospital/physician office.2.Look for an invitation email from [facility].3.Open the email and access the invitation link: AcceptInvitation to [facility].4.Fill in the required randle to create your account. To access your account, visit [facility]. Click the blue button labeled "Access Patient Portal" and then log in with the username and password that you created in the steps above. You will be able to view your test results, lab results, a summary of your visits, upcoming appointments and more. There is also a convenient messaging option where you can send secure messages to your p rovider. In addition, you will have the ability to download any documents or summaries to your computer and/or send the information securely to a physician. Remember that your healthcare information is confidential, so carefully consider who you will allowto register on the [facility] Patient Portal for access to your information. You can also access the [facility] Patient Portal on the [facility]issa. Simply click on "Patient Portal" and then log into your account. If you would like to receive a full copy of your medical records, please contact the [facility] Medical Records Department by calling [phone], Saturday through Saturday between 8 a.m. and 4:30 p.m. HOW TO SAFELY DISPOSE OF PRESCRIPTION MEDICATIONS Please use one of the following methods to safely dispose of your unused medications. 1.Use a drug disposal kit: the drug disposal pouch allows you to safely discard your old and unuseddrugs. Ask your nurse to give you one when you are discharged.2.Visit a local take-back location: Many local pharmacies and police departments have programs that collect old and unwanted prescriptiondrugs. Call your local pharmacy or go to http://nTAG Interactive.Pluto.TV/3Q8Ia0g to find one close to you.3.Make use of household items: Use cat litter or old coffee grounds to dispose medications if other options arenot available. Mix your drugs with these household products, seal them in an airtight container andthrow it into the garbage. Call [facility]: [phone] to be sure your drugs can be disposed of in this way. Some medicines may require a different approach.4.Never flush your medications down the toilet. IF YOU HAVE BEEN PRESCRIBED AN OPIOID FOR PAIN If you have been prescribed [...] have withdrawal symptoms when a medication is stopped, can develop within a few days. KNOW [...] children, family, friends and visitors). The last page of this document has been signed and retained as a CHART COPY. Signatures Patient Education Materials Heart-Healthy Eating Plan Heart Attack, Hntx-mt-Rhuk Medication Leaflets aspirin (oral) My discharge plan and instructions have been reviewed and explained to me and I,STEVEN KOENIG understand my current condition and have read and understand these discharge instructions. I have received a written copy of the plan/instructions. If I have questions, I am aware that I should contact my doctor. 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 Signature: Date/Time: Relationship to Patient: Witness Name/Signature: [facility]Time[id number] Card[facility] Progress note Date of Service 06/14/25 Chief Complaint 70-year-old female with a past medical history significant for hypertension, CAD [status post PCI to proximal LAD 30% ISR and D1 50% ISR, performed in 2020; 40% LCx stenosis, 40% RCA stenosis 12/14/2024], PVC/NSVT [burden 7%], CRF secondary to COPD on 2 L via nasal cannula, hyperlipidemia, heart failure with reduced ejection fraction/nonischemic cardiomyopathy [ejection fraction 30%], mild aortic regurgitation, mild to moderate mitral regurgitation, [tobacco abuse disorder [[id number]], alcoholabuse disorder presented due to acute decompensated heart failure with reduced ejection fraction. Of note, the patient was reporting suicidality Subjective No new complaints Objective Vitals and Measurements T: 36.5 C (Oral) TMIN: 36.5 C (Oral) TMAX: 36.9 C (Oral) HR: 82 RR: 28 BP: 108/61 SpO2: 97% WT: 47.7 kg Intake and Output 7AM Yesterday to 7AM Today Intake and Output (Last 24 hours) Intake Oral Intake 660.00 Output Urine Voided 1050.00 Urinary Catheter Output: 125.00 Total Summary Total Intake 660.00 Total Output 1175.00 Fluid Balance -515.00 Physical Exam General Appearance: Lethargic, no acute distress, alert and oriented x 3 Head: Normocephalic atraumatic EENT: PERRLA Cardiac: Regular rate and rhythm, sinus rhythm on telemetry, no RMG Lungs: Minimal wheezing no rales, otherwise clear to auscultation Abdomen: Nontender nondistended Musculoskeletal: Moving upper and lower extremities appropriately Extremities: No appreciable pitting edema, warm and well-perfused Neurological: No focal neurologic deficits Psychiatric: Normal mood and affect Weight Dosing Weight: 47.7 kg (06/14/25) Dosing Weight: 48.5 kg (06/12/25) Medications Medications (22) Active Scheduled: (14) albuterol - ipratropium 2.5 mg-0.5 mg/3 mL Inhal Elizabeth UD 3 mL, Inhalation, QIDRT aspirin 81 mg Chewable 81 mg 1 tab(s), Chewed, qDay budesonide 0.5 mg/2 mL Susp UD 0.5 mg 2 mL, Inhalation, BIDRT busPIRone 5 mg Tablet 5 mg 1 tab(s), Oral, TID clopidogrel 75 mg Tablet 75 mg 1 tab(s), Oral, Daily empagliflozin 10 mg tablet 10 mg 1 tab(s), Oral, qAM furosemide 40 mg/4 mL vial 40 mg 4 mL, IV Push, BID heparin 5,000 units/mL (1 mL) vial 5,000 unit(s) 1 mL, Subcutaneous, q8h metOLazone 2.5 mg tablet 2.5 mg 1 tab(s), Oral, Once metoprolol succinate 50 mg ER tablet 50 mg 1 tab(s), Oral, qDay pantoprazole 40 mg EC tablet 40 mg 1 tab(s), Oral, qDayAC rosuvastatin 20 mg tablet 20 mg 1 tab(s), Oral, qDay sacubitril-valsartan 24-26 mg oral tablet 1 tab(s), Oral, BID traZODONE 100 mg Tablet 100 mg 1 tab(s), Oral, qHS Continuous: (0) PRN: (8) albuterol 0.083% Soln UD (2.5mg/3 mL) 2.5 mg 3 mL, Inhalation, QIDRT magnesium sulfate 4 gram(s)/100mL PMX 4 g 100 mL, IV Piggyback, AsDirected magnesium sulfate 50% (500mg/mL) 6 g 12 mL, IV Piggyback, AsDirected magnesium sulfate PMX 2 g 50 mL, IV Piggyback, AsDirected potassium chloride (PMX) 20 mEq/100 mL 20 mEq 100 mL, IV Piggyback, AsDirected potassium chloride 20 mEq ER tablet 20 mEq 1 tab(s), Oral, AsDirected potassium chloride 20 mEq ER tablet 40 mEq 2 tab(s), Oral, AsDirected potassium chloride 20 mEq ER tablet 40 mEq 2 tab(s), Oral, AsDirected Lab Results 06/14 07:15 Glucose Level: 118 H Sodium Level: 145 Potassium Level: 4.2 BUN: 26.0 H Creatinine Lvl (s): 0.98 06/13 02:26 WBC: 3.2 L Hgb: 12.3 Hct: 37.9 Platelet: 452 H Neutrophil %: 80.7 H Glucose Level: 125 H Sodium Level: 144 Potassium Level: 3.6 BUN: 17.0 Creatinine Lvl (s): 0.91 EKG EKG - Completed -- 06/12/25 19:14:00 EDT Electrocardiogram (EKG) - InProcess -- 06/13/25 17:13:00 EDT, chest pain Electrocardiogram (EKG) - Ordered -- 06/13/25 20:57:00 EDT, Unless 2 EKGs already done in the past 6 hours Assessment/Plan Acute on chronic hypoxic respiratory failure Acute on chronic heart failure with reduced ejection fraction Suicidal ideation with concern for major depressive disorder History of Acute on chronic heart failure with reduced ejection fraction Continue Toprol-XL 50 p.o. daily, Entresto, Jardiance. If blood pressure tolerates, can add Aldactone at a later point Suicidal ideation Psychiatry consulted and cleared patient is clear for discharge from a psychiatric standpoint Of note, the patient's is requesting to be seen by physical therapy and Occupational Therapy to assess whether she will qualify for placement given that she feels that she needs more support at home. Digitally Signed by JOAN WARREN MD on 06/14/2025 03:58 PM [id number] Consult note Chief complaint "I was just angry yesterday. I am not suicidal. I was never suicidal". History present illness 70-year-old female known to me due to a past psychiatric consultation currently on the cardiac care unit. Psychiatric consultation was requested as patient became angry yesterday. She was throwing objects and she voiced a suicidal threat. Upon interview this morning, she wasextremely pleasant, cooperative and relaxed. She was not manic nor psychotic. She was reality based. She states "I was just frustrated and angry yesterday. When I feel that way, I say stupid things that I do not mean. I was never suicidal. I want to live". During my evaluation, she is exhibiting nopsychiatric symptoms whatsoever. She is not depressed nor anxious. She is not manic or psychotic. She adamantly denies suicidal and homicidal thoughts Past psychiatric history this patient is currently not engaged in outpatient behavioral health treatment. She receives her trazodone and BuSpar from her family physician. Family history patient denies mental illness in her family Social history this patient is . She lives with her daughter. She is not working. She has 2 grown children. She has been sober from alcohol for 15 years. Mental status exam at the time of this evaluation, this patient is alert and oriented in all spheres. Memory is grossly intact. Mood is described as "good". Affect is euthymic. She is not psychotic. She denies suicidal and homicidal thoughts. Her judgment and insight are intact. Speech is presentedin a normal tone as well as normal pace Diagnostic impression adjustment disorder. Alcohol abuse, in remission Treatment plan #1 patient is adamantly denying suicidal thoughts. #2 one-to-one sitter may be discontinued #3 no indication for inpatient psychiatric treatment #4 patient states she felt benefit fromlow-dose Seroquel yesterday. She is requesting to stay on 25 mg of Seroquel at bedtime if okay withcardiology. #5 patient will follow up at [facility] #6 patient is psychiatrically stable to be discharged when she is medically cleared. Psychiatry will sign off. Please call as needed. CPT code 74281. Digitally Signed by KEYLA ANDERSON MD on 06/14/2025 12:04 PM [facility] [id number] Note* Exam Date Time Procedure Performing Provider Status 06/14/25 10:50 AM Echocardiogram, Adult - CV KENNEY BLACKMNA MD; Auth (Verified) [facility] [id number] Note* Exam Date Time Procedure Performing Provider Status 06/14/25 10:12 AM XR Chest 1 View ARMANDO BLANTON MD; [facility] (Verified) [id number] ORIGINAL EXAMINATION: ONE XRAY VIEW OF THE CHEST TECHNIQUE: One view AP upright COMPARISON: Chest 06/12/2025 HISTORY: ORDERING SYSTEM PROVIDED HISTORY: Reason for Exam: sob FINDINGS: Support devices: None Cardiomediastinal: Stable mild cardiomegaly. Coronary artery stents and atherosclerotic calcifications noted. Lungs: The lungs are hyperinflated. The previously seen multifocal ground-glass opacities are no longer conspicuous. No pulmonary edema, consolidation or large pleural effusion is present. Pneumothorax: None Osseous: No acute osseous pathology. Healed left rib fractures. Incompletely imaged ACDF. IMPRESSION: 1. No acute pulmonary disease. 2. Stable mild cardiomegaly. 3. Pulmonary hyperinflation. Interpreted by: Armando Blanton MD Preliminary Report By: Armando Blanton MD Electronically signed By Armando Blanton MD Dictated Date: 06/14/2025 10:21:50 AM Prelim Date: 06/14/2025 10:24:03 AM Sign Date: 06/14/2025 10:24:03 AM Ordering Provider: [facility]08-04-2025 Cardiology Progress note Date of Service 06/14/25 Chief Complaint 70-year-old female with a past medical history significant for hypertension, CAD [status post PCI to proximal LAD 30% ISR and D1 50% ISR, performed in 2020; 40% LCx stenosis, 40% RCA stenosis 12/14/2024], PVC/NSVT [burden 7%], CRF secondary to COPD on 2 L via nasal cannula, hyperlipidemia, heart failure with reduced ejection fraction/nonischemic cardiomyopathy [ejection fraction 30%], mild aortic regurgitation, mild to moderate mitral regurgitation, [tobacco abuse disorder [[id number]], alcoholabuse disorder presented due to acute decompensated heart failure with reduced ejection fraction. Of note, the patient was reporting suicidality Subjective No new complaints Objective Vitals and Measurements T: 36.5 C (Oral) TMIN: 36.5 C (Oral) TMAX: 36.9 C (Oral) HR: 82 RR: 28 BP: 108/61 SpO2: 97% WT: 47.7 kg Intake and Output 7AM Yesterday to 7AM Today Intake and Output (Last 24 hours) Intake Oral Intake 660.00 Output Urine Voided 1050.00 Urinary Catheter Output: 125.00 Total Summary Total Intake 660.00 Total Output 1175.00 Fluid Balance -515.00 Physical Exam General Appearance: Lethargic, no acute distress, alert and oriented x 3 Head: Normocephalic atraumatic EENT: PERRLA Cardiac: Regular rate and rhythm, sinus rhythm on telemetry, no RMG Lungs: Minimal wheezing no rales, otherwise clear to auscultation Abdomen: Nontender nondistended Musculoskeletal: Moving upper and lower extremities appropriately Extremities: No appreciable pitting edema, warm and well-perfused Neurological: No focal neurologic deficits Psychiatric: Normal mood and affect Weight Dosing Weight: 47.7 kg (06/14/25) Dosing Weight: 48.5 kg (06/12/25) Medications Medications (22) Active Scheduled: (14) albuterol - ipratropium 2.5 mg-0.5 mg/3 mL Inhal Elizabeth UD 3 mL, Inhalation, QIDRT aspirin 81 mg Chewable 81 mg 1 tab(s), Chewed, qDay budesonide 0.5 mg/2 mL Susp UD 0.5 mg 2 mL, Inhalation, BIDRT busPIRone 5 mg Tablet 5 mg 1 tab(s), Oral, TID clopidogrel 75 mg Tablet 75 mg 1 tab(s), Oral, Daily empagliflozin 10 mg tablet 10 mg 1 tab(s), Oral, qAM furosemide 40 mg/4 mL vial 40 mg 4 mL, IV Push, BID heparin 5,000 units/mL (1 mL) vial 5,000 unit(s) 1 mL, Subcutaneous, q8h metOLazone 2.5 mg tablet 2.5 mg 1 tab(s), Oral, Once metoprolol succinate 50 mg ER tablet 50 mg 1 tab(s), Oral, qDay pantoprazole 40 mg EC tablet 40 mg 1 tab(s), Oral, qDayAC rosuvastatin 20 mg tablet 20 mg 1 tab(s), Oral, qDay sacubitril-valsartan 24-26 mg oral tablet 1 tab(s), Oral, BID traZODONE 100 mg Tablet 100 mg 1 tab(s), Oral, qHS Continuous: (0) PRN: (8) albuterol 0.083% Soln UD (2.5mg/3 mL) 2.5 mg 3 mL, Inhalation, QIDRT magnesium sulfate 4 gram(s)/100mL PMX 4 g 100 mL, IV Piggyback, AsDirected magnesium sulfate 50% (500mg/mL) 6 g 12 mL, IV Piggyback, AsDirected magnesium sulfate PMX 2 g 50 mL, IV Piggyback, AsDirected potassium chloride (PMX) 20 mEq/100 mL 20 mEq 100 mL, IV Piggyback, AsDirected potassium chloride 20 mEq ER tablet 20 mEq 1 tab(s), Oral, AsDirected potassium chloride 20 mEq ER tablet 40 mEq 2 tab(s), Oral, AsDirected potassium chloride 20 mEq ER tablet 40 mEq 2 tab(s), Oral, AsDirected Lab Results 06/14 07:15 Glucose Level: 118 H Sodium Level: 145 Potassium Level: 4.2 BUN: 26.0 H Creatinine Lvl (s): 0.98 06/13 02:26 WBC: 3.2 L Hgb: 12.3 Hct: 37.9 Platelet: 452 H Neutrophil %: 80.7 H Glucose Level: 125 H Sodium Level: 144 Potassium Level: 3.6 BUN: 17.0 Creatinine Lvl (s): 0.91 EKG EKG - Completed -- 06/12/25 19:14:00 EDT Electrocardiogram (EKG) - InProcess -- 06/13/25 17:13:00 EDT, chest pain Electrocardiogram (EKG) - Ordered -- 06/13/25 20:57:00 EDT, Unless 2 EKGs already done in the past 6 hours Assessment/Plan Acute on chronic hypoxic respiratory failure Acute on chronic heart failure with reduced ejection fraction Suicidal ideation with concern for major depressive disorder History of Acute on chronic heart failure with reduced ejection fraction Continue Toprol-XL 50 p.o. daily, Entresto, Jardiance. If blood pressure tolerates, can add Aldactone at a later point Suicidal ideation Psychiatry consulted and cleared patient is clear for discharge from a psychiatric standpoint Of note, the patient's is requesting to be seen by physical therapy and Occupational Therapy to assess whether she will qualify for placement given that she feels that she needs more support at home. Digitally Signed by JAON WARREN MD on 06/14/2025 03:58 PM [facility] [id number] History and physical note Date of Service 06/12/2025 Chief Complaint Shortness of breath History of Present Illness The patient is a 70-year-old female with past medical history including HTN, GERD, CAD s/p PCI, tobacco abuse (15 PY), COPD (2 L baseline), HLD, and EtOH use disorder who presents for shortness of breath. The patient endorsed shortness of breath at rest, and was found to be hypoxic by EMS and started on nonrebreather. HST 36-> 35. proBNP 9545 increased from 4500 approximately 1 month prior. Renal function is at baseline with SCr 0.74. EKG with no significant ST segment changes, or other indicators of ischemia. Chest x-ray demonstrates pulmonary edema versus multifocal pneumonia. On my interview the patient endorses months of worsening shortness of breath and associated leg swelling. The patient does not say that has been worsening over this time. She does say that she has been intermittently compliant with her medications, "taking them when she remembers". Her baseline oxygen requirements are 4 L per the patient. She denied any associated chest pain or chest pressure, but cannot answer questions regarding dyspnea on exertion/exercise capacity. She currently denies any chest pain, chest pressure, dizziness, lightheadedness, or presyncope. She is lethargic on exam. ECHO 12/25/2024 1. Left ventricle: The cavity size is increased. Wall thickness is mildly increased. Systolic function is moderately to severely reduced. The estimated ejection fraction is 30%. There is mild diffuse hypokinesis. Diastolic dysfunction is present. 2. Aortic valve: There is mild regurgitation. 3. Mitral valve: There is mild to moderate regurgitation. 4. Left atrium: The atrium is mildly dilated. 5. Right ventricle: The RV systolic pressure by Doppler is 27 mm Hg. 6. Right atrium: The estimated right atrial pressure is 3 mm Hg. [facility] 12/14/2024 1. The study demonstrates moderate coronary artery disease. 2. Patent stents, no obstructive lesions. Normal LVEDP. Review of Systems Negative except as noted in HPI Physical Exam Vitals and Measurements T: 36.4 C (Oral) HR: 83 (Monitored) RR: 20 BP: 138/73 SpO2: 95% HT: 165.1 cm WT: 48.5 kg BMI: 17.79 Weight Dosing Weight: 48.5 kg (06/12/25) General Appearance: Lethargic, no acute distress, alert and oriented x 3 Head: Normocephalic atraumatic EENT: PERRLA Cardiac: Regular rate and rhythm, sinus rhythm on telemetry, no RMG Lungs: Minimal wheezing no rales, otherwise clear to auscultation Abdomen: Nontender nondistended Musculoskeletal: Moving upper and lower extremities appropriately Extremities: No appreciable pitting edema, warm and well-perfused Neurological: No focal neurologic deficits Psychiatric: Normal mood and affect Lab Results 06/12 20:10 Glucose Level: 124 H Sodium Level: 143 Potassium Level: 3.8 BUN: 12.0 Creatinine Lvl (s): 0.74 Assessment/Plan Chronic hypoxic respiratory failure Heart failure combined systolic and diastolic. Coronary artery disease Ischemic cardiomyopathy EKG with sinus tachycardia and no clear indicators of ischemia. When taking the patient's history into account along with bedside physical exam the patient does not appear to be significantly fluid overloaded. The patient is on 2 L nasal cannula saturating well, which is actually below her baseline oxygen requirements of 4 L nasal cannula. Her renal function isat baseline, and she endorses medication nonadherence which has likely worsened her heart failure reduced ejection fraction. Plan to resume home medications and treat heart failure reduced ejection fraction with medication adherence. - Will continue Lasix drip overnight secondary to chest x-ray demonstrating potential vascular congestion. - Start Lasix 40 IV BID -Given the above I favor a multifactorial etiology driven by COPD and worsening left-sided ejectionfraction related to medication nonadherence. -Resume home Entresto -Resume home DAPT therapy -Resume home Crestor -Will order transthoracic echocardiogram to evaluate for worsened left ventricular ejection fraction and rule out acute worsening. -Resume home Toprol 50 -Treat COPD with inhaled DuoNeb and Pulmicort. - Potential discharge 06/14 Problem List/Past Medical History Ongoing Alcohol use disorder Asthma CAD in [place] artery Cardiomyopathy COPD with chronic bronchitis Depression, major, recurrent IGOR (generalized anxiety disorder) Gastric ulcer GERD (gastroesophageal reflux disease) GI bleed Hepatitis C HTN (hypertension) Hyperlipidemia Kidney mass LUQ pain Pancreatitis Peripheral arterial disease Psychophysiologic insomnia Pulmonary nodule Risk and functional assessment Stented coronary artery TBI (traumatic brain injury) Historical Asthma Hypertension Procedure/Surgical History Cardiac catheterization procedure: 08/25/21 Ear Cholecystocecostomy Hysterectomy Arm Cholecystectomy Tonsillectomy Medications Home Medications (16) Active albuterol MDI (90 mcg/inh) CFC free inhalation aerosol 2 puff(s), PRN, Inhalation, QID albuterol 0.63 mg/3 mL (0.021%) inhalation solution 0.63 mg = 3 mL, Inhalation, QID amLODIPine 5 mg oral tablet 5 mg = 1 tab(s), Oral, qDay aspirin 81 mg oral tablet, chewable 81 mg, Chewed, qDay Bronkaid Max 25 mg oral tablet 25 mg = 1 tab(s), Oral, q4h busPIRone 5 mg oral tablet 5 mg = 1 tab(s), Oral, TID caffeine 200 mg oral tablet 200 mg = 1 tab(s), Oral, q4h clopidogrel 75 mg oral tablet 75 mg = 1 tab(s), Oral, Daily Crestor 20 mg oral tablet 20 mg = 1 tab(s), Oral, qDay Entresto 24 mg-26 mg oral tablet 1 tab(s), Oral, BID Lasix 40 mg oral tablet 40 mg = 1 tab(s), Oral, qDay metoprolol succinate 50 mg oral TABLET extended release 50 mg = 1 tab(s), Oral, qDay Nebulizer (Compressor) See Instructions Protonix 20 mg oral enteric coated tablet 40 mg = 2 tab(s), Oral, qDayAC traZODone 100 mg oral tablet 100 mg = 1 tab(s), Oral, qHS Trelegy Ellipta 200 mcg-62.5 mcg-25 mcg/inh inhalation powder 1 puff(s), Inhalation, qDay Allergies NKA Social History Smoking Status - 03/16/2018 Current every day smoker Alcohol - High Risk, 11/25/2017 Use: Past., 01/11/2025 Home/Environment Living situation: Home with assistance. Domestic Concerns: Neglect. Primary Instrument Man: daughter., 05/18/2025 Nutrition/Health Caffeine intake amount: 4 cups a day and soda in afternoon., 10/23/2024 Substance Abuse - Denies Substance Abuse, 11/25/2017 Use: Never., 06/14/2021 Tobacco Nicotine Use: 10 or more cigarettes (1/2 pack or more)/day in last 30 days. Type: Cigarettes., 05/16/2025 Family History Cancer: Mother and Father. HTN - Hypertension: Mother, Father, Sister and Daughter. Heart disease: Mother, Father, Sister and Daughter. Health Status Family Member(s) Immunizations pneumococcal 23-valent vaccine(Pneumovax: 0.5 unknown unit (04/21/18) pneumococcal 23-valent vaccine(Pneumovax: 0.5 mL (09/13/11) Code Status Code Status - Ordered -- 06/12/25 19:20:00 EDT, DNRCC-Arrest Do Not Intubate, Constant Order Digitally Signed by KEYLA VILLALPANDO MD on 06/13/2025 07:06 AM [facility] [id number] Cardiology Progress note Date of Service Called by nursing staff due to concerns for patient voicing suicidality. Patient was also noted to be agitated throwing things across the room. During conversation with patient, she did express feeling very anxious and stressed regarding her overall health. She noted that she gets racing thoughts regarding hurting herself, and sometimes she wishes she was not here. Discussed with patient that we were very concerned with her safety, and that we will be implementing more safety measures [id number] sitter. Briefly discussed case on the phone with Dr. Anderson with psychiatry, and he will be seeing the patient tomorrow. Patient was agreeable to receive Seroquel as well as continue receiving as needed Ativan for her agitation/anxiety. During this time, she reported mild chest discomfort as she was visibly agitated. EKG showed minimal EKG changes on the inferior and lateral aspects. Sheendorsed improvement of her chest pains with improvement in her anxiety. Patient was made high riskgiven active concerns for her safety. Psychiatry will follow tomorrow Digitally Signed by MAGNUS PROCTOR MD on 06/13/2025 07:56 PM Digitally Signed by JAE LUCIANO MD on 06/14/2025 03:33 PM [facility] [id number] Nurse Progress note patient yelled out from room cussing profanities, nursing entered room concern for safety, patient visibly flustered stating " this is fucking ridiculous, I can't stand this", when asking patient if she was okay patient stated " I want to just commit suicide right now, I'm fucking disgusted with myself, I can't do anything right. Nursing attempted to help patient resolve concerns. patient then sat down to call son and started to shout profanities at the phone. patient stated that she is angry and anxious about everything and requesting something for sleep and for anxiety. Nursing concern for safety called fellow sales commissions analyst, security, lead Rn, and nurse supervisor rod placing. Nursing initiated [place] Suicide risk assessment, patient was given score of moderate at that time, physician agreed at that time patient should be 1:1 sitter, remove belongings and all items from room for safety to patient andstaff. Security at bedside; patient threw utensils on bedside table and stated that "if she wanted to she would just stab herself with those". Patient was seen by physician in room consult to psych was made, physician then made her high risk safety, sitter was mantained as well as security presence. Safety mantained, cleared room. Digitally Signed by Esthela Wyatt RN on 06/13/2025 05:48 PM [facility] [id number] Note* Exam Date Time Procedure Performing Provider Status 06/13/25 5:25 PM Electrocardiogram - EKG - CV Reg BLACKMAN MD; Auth (Verified) ECG Final Report SINUS RHYTHM LEFT ATRIAL ENLARGEMENT LEFT VENTRICULAR HYPERTROPHY NONSPECIFIC T ABNORMALITIES, INFERIOR LEADS Electronic Signature: BALWINDER BLACKMAN MD 06/14/2025 21:32:55 [facility] [id number] Respiratory therapy Hospital Progress note Respiratory Therapy Evaluation Entered On: 06/12/2025 23:17 EDT Performed On: 06/12/2025 23:17 EDT by Guillermo Andrade HEAT TREATER HEAD Respiratory Therapy Evaluation Chest X-Ray : Infiltrates or atelectasis in more than one lobe or rib fractures Respiratory Pattern (RT) : RR 10-20 BPM, Regular pattern Respiratory Therapy Evaluation Score : 9 RT Evaluation Steps : Chart review completed, Assessment completed: RR, HR, Auscultation, Cough Respiratory Evaluation Triage Score : (6-10) Freq: TIDRT & Albuterol Q2hRT prn RT Assessment [Frequency/Schedule] : Therapeutic interchange, discontinue future evaluations Guillermo Andrade HEAT TREATER HEAD - 06/12/2025 23:18 EDT Pulmonary Status : Chronic pulmonary disease Surgical Status : No surgery Guillermo Andrade RRT - 06/12/2025 23:17 EDT Breath Sounds (RT) : Rhonchi clearing with cough Guillermo Andrade RRT - 06/12/2025 23:18 EDT Cough (RT) : Strong, non-productive Level of Activity : Ambulatory with assistance Mental Status : Alert, oriented and cooperative Guillermo Andrade RRT - 06/12/2025 23:17 EDT Digitally Signed by Guillermo Andrade [employer] TREATER [employer] on 06/12/2025 11:17 PM Digitally Signed by Guillermo Andrade HEAT TREATER HEAD on 06/12/2025 11:18 PM [facility] [id number] History and physical note Date of Service 06/12/2025 Chief Complaint Shortness of breath History of Present Illness The patient is a 70-year-old female with past medical history including HTN, GERD, CAD s/p PCI, tobacco abuse (15 PY), COPD (2 L baseline), HLD, and EtOH use disorder who presents for shortness of breath. The patient endorsed shortness of breath at rest, and was found to be hypoxic by EMS and started on nonrebreather. HST 36-> 35. proBNP 9545 increased from 4500 approximately 1 month prior. Renal function is at baseline with SCr 0.74. EKG with no significant ST segment changes, or other indicators of ischemia. Chest x-ray demonstrates pulmonary edema versus multifocal pneumonia. On my interview the patient endorses months of worsening shortness of breath and associated leg swelling. The patient does not say that has been worsening over this time. She does say that she has been intermittently compliant with her medications, "taking them when she remembers". Her baseline oxygen requirements are 4 L per the patient. She denied any associated chest pain or chest pressure, but cannot answer questions regarding dyspnea on exertion/exercise capacity. She currently denies any chest pain, chest pressure, dizziness, lightheadedness, or presyncope. She is lethargic on exam. ECHO 12/25/2024 1. Left ventricle: The cavity size is increased. Wall thickness is mildly increased. Systolic function is moderately to severely reduced. The estimated ejection fraction is 30%. There is mild diffuse hypokinesis. Diastolic dysfunction is present. 2. Aortic valve: There is mild regurgitation. 3. Mitral valve: There is mild to moderate regurgitation. 4. Left atrium: The atrium is mildly dilated. 5. Right ventricle: The RV systolic pressure by Doppler is 27 mm Hg. 6. Right atrium: The estimated right atrial pressure is 3 mm Hg. [facility] 12/14/2024 1. The study demonstrates moderate coronary artery disease. 2. Patent stents, no obstructive lesions. Normal LVEDP. Review of Systems Negative except as noted in HPI Physical Exam Vitals and Measurements T: 36.4 C (Oral) HR: 83 (Monitored) RR: 20 BP: 138/73 SpO2: 95% HT: 165.1 cm WT: 48.5 kg BMI: 17.79 Weight Dosing Weight: 48.5 kg (06/12/25) General Appearance: Lethargic, no acute distress, alert and oriented x 3 Head: Normocephalic atraumatic EENT: PERRLA Cardiac: Regular rate and rhythm, sinus rhythm on telemetry, no RMG Lungs: Minimal wheezing no rales, otherwise clear to auscultation Abdomen: Nontender nondistended Musculoskeletal: Moving upper and lower extremities appropriately Extremities: No appreciable pitting edema, warm and well-perfused Neurological: No focal neurologic deficits Psychiatric: Normal mood and affect Lab Results 06/12 20:10 Glucose Level: 124 H Sodium Level: 143 Potassium Level: 3.8 BUN: 12.0 Creatinine Lvl (s): 0.74 Assessment/Plan Chronic hypoxic respiratory failure Heart failure combined systolic and diastolic. Coronary artery disease Ischemic cardiomyopathy EKG with sinus tachycardia and no clear indicators of ischemia. When taking the patient's history into account along with bedside physical exam the patient does not appear to be significantly fluid overloaded. The patient is on 2 L nasal cannula saturating well, which is actually below her baseline oxygen requirements of 4 L nasal cannula. Her renal function isat baseline, and she endorses medication nonadherence which has likely worsened her heart failure reduced ejection fraction. Plan to resume home medications and treat heart failure reduced ejection fraction with medication adherence. - Will continue Lasix drip overnight secondary to chest x-ray demonstrating potential vascular congestion. - Start Lasix 40 IV BID -Given the above I favor a multifactorial etiology driven by COPD and worsening left-sided ejectionfraction related to medication nonadherence. -Resume home Entresto -Resume home DAPT therapy -Resume home Crestor -Will order transthoracic echocardiogram to evaluate for worsened left ventricular ejection fraction and rule out acute worsening. -Resume home Toprol 50 -Treat COPD with inhaled DuoNeb and Pulmicort. - Potential discharge 06/14 Problem List/Past Medical History Ongoing Alcohol use disorder Asthma CAD in [place] artery Cardiomyopathy COPD with chronic bronchitis Depression, major, recurrent IGOR (generalized anxiety disorder) Gastric ulcer GERD (gastroesophageal reflux disease) GI bleed Hepatitis C HTN (hypertension) Hyperlipidemia Kidney mass LUQ pain Pancreatitis Peripheral arterial disease Psychophysiologic insomnia Pulmonary nodule Risk and functional assessment Stented coronary artery TBI (traumatic brain injury) Historical Asthma Hypertension Procedure/Surgical History Cardiac catheterization procedure: 08/25/21 Ear Cholecystocecostomy Hysterectomy Arm Cholecystectomy Tonsillectomy Medications Home Medications (16) Active albuterol MDI (90 mcg/inh) CFC free inhalation aerosol 2 puff(s), PRN, Inhalation, QID albuterol 0.63 mg/3 mL (0.021%) inhalation solution 0.63 mg = 3 mL, Inhalation, QID amLODIPine 5 mg oral tablet 5 mg = 1 tab(s), Oral, qDay aspirin 81 mg oral tablet, chewable 81 mg, Chewed, qDay Bronkaid Max 25 mg oral tablet 25 mg = 1 tab(s), Oral, q4h busPIRone 5 mg oral tablet 5 mg = 1 tab(s), Oral, TID caffeine 200 mg oral tablet 200 mg = 1 tab(s), Oral, q4h clopidogrel 75 mg oral tablet 75 mg = 1 tab(s), Oral, Daily Crestor 20 mg oral tablet 20 mg = 1 tab(s), Oral, qDay Entresto 24 mg-26 mg oral tablet 1 tab(s), Oral, BID Lasix 40 mg oral tablet 40 mg = 1 tab(s), Oral, qDay metoprolol succinate 50 mg oral TABLET extended release 50 mg = 1 tab(s), Oral, qDay Nebulizer (Compressor) See Instructions Protonix 20 mg oral enteric coated tablet 40 mg = 2 tab(s), Oral, qDayAC traZODone 100 mg oral tablet 100 mg = 1 tab(s), Oral, qHS Trelegy Ellipta 200 mcg-62.5 mcg-25 mcg/inh inhalation powder 1 puff(s), Inhalation, qDay Allergies NKA Social History Smoking Status - 03/16/2018 Current every day smoker Alcohol - High Risk, 11/25/2017 Use: Past., 01/11/2025 Home/Environment Living situation: Home with assistance. Domestic Concerns: Neglect. Primary Instrument Man: daughter., 05/18/2025 Nutrition/Health Caffeine intake amount: 4 cups a day and soda in afternoon., 10/23/2024 Substance Abuse - Denies Substance Abuse, 11/25/2017 Use: Never., 06/14/2021 Tobacco Nicotine Use: 10 or more cigarettes (1/2 pack or more)/day in last 30 days. Type: Cigarettes., 05/16/2025 Family History Cancer: Mother and Father. HTN - Hypertension: Mother, Father, Sister and Daughter. Heart disease: Mother, Father, Sister and Daughter. Health Status Family Member(s) Immunizations pneumococcal 23-valent vaccine(Pneumovax: 0.5 unknown unit (04/21/18) pneumococcal 23-valent vaccine(Pneumovax: 0.5 mL (09/13/11) Code Status Code Status - Ordered -- 06/12/25 19:20:00 EDT, DNRCC-Arrest Do Not Intubate, Constant Order Digitally Signed by KEYLA VILLALPANDO MD on 06/13/2025 07:06 AM [id number]* Exam Date Time Procedure Performing Provider Status 06/12/25 7:16 PM Electrocardiogram - EKG - CV JAE LUCIANO MD; Auth (Verified) ECG Final Report SINUS RHYTHM VENTRICULAR TRIGEMINY PROBABLE LEFT ATRIAL ENLARGEMENT LEFT VENTRICULAR HYPERTROPHY NONSPECIFIC T ABNORMALITIES, LATERAL LEADS BORDERLINE PROLONGED QT INTERVAL Electronic Signature: JAE LUCIANO MD 06/13/2025 12:03:36 [id number] Note* Exam Date Time Procedure Performing Provider Status 06/12/25 3:45 PM XR Chest 1 View IGOR VANCE MD; Auth (Verified) [id number] ORIGINAL EXAMINATION: ONE XRAY VIEW OF THE CHEST 06/12/2025 3:45 pm COMPARISON: 05/16/2025 HISTORY: ORDERING SYSTEM PROVIDED HISTORY: Reason for Exam: SOB/cough/fever FINDINGS: Partially visualized cervical ACDF. Cardiomegaly. Aortic arch calcifications. Diffuse interstitial pattern with multifocal patchy ground-glass opacities right more than left. Minimal blunting of the left costophrenic angle which is resolved from prior. Right costophrenic angle is minimally blunted. No pneumothorax. Skeletal elements are unchanged. IMPRESSION: 1. Cardiomegaly. 2. Diffuse interstitial pattern and multifocal patchy ground-glass opacities right more than left. Findings may be related to pulmonary edema versus multifocal pneumonia. 3. Near complete resolution of trace left pleural effusion. 4. Mild blunting of the right costophrenic angle, pleural thickening/scarring versus trace right pleural fluid. Interpreted by: Igor Vance Preliminary Report By: Igor Vance Electronically signed By Igor Vance Dictated Date: 06/12/2025 3:50:34 PM Prelim Date: 06/12/2025 3:52:07 PM Sign Date: 06/12/2025 3:52:07 PM Ordering Provider: KRYS PICKETT [facility]08-02-2025 Note* Exam Date Time Procedure Performing Provider Status 06/12/25 2:58 PM EKG [ED AOH] - CV BRIAN TRINIDAD ; Aut h (Verified) ECG Final Report Sinus tachycardia Probable left atrial enlargement Probable left ventricular hypertrophy Nonspecific T abnormalities, lateral leads Electronic Signature: AMOSBRIAN 06/12/2025 15:14:26 [facility]08-02-2025 Evaluation + Plan noteExtracted from: Title:History and Physical Author:RUBI VILLALPANDO MD Date:06/12/25 Chronic hypoxic respiratory failure Heart failure combined systolic and diastolic. Coronary artery disease Ischemic cardiomyopathy EKG with sinus tachycardia and no clear indicators of ischemia. When taking the patient's history into account along with bedside physical exam the patient does not appear to be significantly fluid overloaded. The patient is on 2 L nasal cannula saturating well, which is actually below her baseline oxygen requirements of 4 L nasal cannula. Her renal function is at baseline, and she endorses medication nonadherence which has likely worsened her heart failure reduced ejection fraction. Plan to resume home medications and treat heart failure reduced ejection fraction with medication adherence. - Will continue Lasix drip overnight secondary to chest x-ray demonstrating potential vascular congestion. - Start Lasix 40 IV BID -Given the above I favor a multifactorial etiology driven by COPD and worsening left-sided ejection fraction related to medication nonadherence. -Resume home Entresto -Resume home DAPT therapy -Resume home Crestor -Will order transthoracic echocardiogram to evaluate for worsened left ventricular ejection fraction and rule out acute worsening. -Resume home Toprol 50 -Treat COPD with inhaled DuoNeb and Pulmicort. - Potential discharge 06/14 Addendum by SYED FANG MD on June 13, 2025 21:28:42 EDT Patient was independently seen and examined by me. Below discussed and I agree with fellow note except where indicated. See note for details above. I personally reviewed the patient s recent medications, orders, vitals, labs, and X ray reports/images. Also I personally reviewed recent cardiac telemetry and other pertinent available cardiac studies and images including the latest EKG images , echo images Medications were reviewed and changes were made in EMR volume status improving- switch lasix drip to IV lasix BID Future Appointments Appointment Date:07/13/2025 10:00:00 AM Scheduled Provider:ELLEN SWAN Location:[facility] Appointment Type:CV OV Hospital Follow Up Appointment Date:07/30/2025 10:00:00 AM Scheduled Provider:EMMA QUEEN DO Location:[facility] Appointment Type:PC OV Future Scheduled Tests Laboratory* Basic Metabolic Panel 01/11/25 * N-Terminal proBNP 01/11/25 Radiology* MRI Cardiac Morphology & Func W+W/O Cont 02/23/25 * CT Low Dose Lung Cancer Screening (LDCT) 03/10/25 [facility] 07-14-2025 Hospital Discharge instructions Patient Education 05/24/2025 11:49:32 Heart Failure, Self Care, Wyql-gm-Tjyk Heart Failure, Self Care Heart failure is a serious condition. This sheet explains things you need to do to take care of yourself at home. To help you stay as healthy as possible, you may be asked to change your diet, take certain medicines, and make other changes in your life. Your doctor may also give you more specific instructions. If you have problems or questions, call your doctor. What are the risks? Having heart failure makes it more likely for you to have some problems. These problems can get worse if you do not take good care of yourself. Problems may include: Blood clotting problems. This may cause a stroke. Damage to the kidneys, liver, or lungs. Abnormal heart rhythms. Supplies needed: Scale for weighing yourself. Blood pressure monitor. Notebook. Medicines. How to care for yourself when you have heart failure Medicines Take wluk-zjh-yatapht and prescription medicines only as told by your doctor. Take your medicines every day. Do not stop taking your medicine unless your doctor tells you to do so. Do not skip any medicines. Get your prescriptions refilled before you run out of medicine. This is important. Eating and drinking Eat heart-healthy foods. Talk with a diet specialist (dietitian) to create an eating plan. Choose foods that: ?Have no trans fat. ?Are low in saturated fat and cholesterol. Choose healthy foods, such as: ?Fresh or frozen fruits and vegetables. ?Fish. ?Low-fat (lean) meats. ?Legumes, such as beans, peas, and lentils. ?Fat-free or low-fat dairy products. ?Whole-grain foods. ?High-fiber foods. Limit salt (sodium) if told by your doctor. Ask your diet specialist to tell you which seasonings are healthy for your heart. Cook in healthy ways instead of frying. Healthy ways of cooking include roasting, grilling, broiling, baking, poaching, steaming, and stir-frying. Limit how much fluid you drink, if told by your doctor. Alcohol use Do not drink alcohol if: ?Your doctor tells you not to drink. ?Your heart was damaged by alcohol, or you have very bad heart failure. ?You are , may be , or are planning to become . If you drink alcohol: ?Limit how much you use to: ?0 1 drink a day for women. ?0 2 drinks a day for men. ?Be aware of how much alcohol is in your drink. In the [place] one drink equals one 12 oz bottle of beer (355 mL), one 5 oz glass of wine (148 mL), or one 1 oz glass of hard liquor (44 mL). Lifestyle Do not use any products that contain nicotine or tobacco, such as cigarettes, e- cigarettes, and chewing tobacco. If you need help quitting, ask your doctor. ?Do not use nicotine gum or patches before talking to your doctor. Do not use illegal drugs. Lose weight if told by your doctor. Do physical activity if told by your doctor. Talk to your doctor before you begin an exercise if: ?You are an older adult. ?You have very bad heart failure. Learn to manage stress. If you need help, ask your doctor. Get rehab (rehabilitation) to help you stay independent and to help with your quality of life. Plan time to rest when you get tired. Check weight and blood pressure Weigh yourself every day. This will help you to know if fluid is building up in your body. ?Weigh yourself every morning after you pee (urinate) and before you eat breakfast. ?Wear the same amount of clothing each time. ?Write down your daily weight. Give your record to your doctor. Check and write down your blood pressure as told by your doctor. Check your pulse as told by your doctor. Dealing with very hot and very cold weather If it is very hot: ?Avoid activities that take a lot of energy. ?Use air conditioning or fans, or find a cooler place. ?Avoid caffeine and alcohol. ?Wear clothing that is loose-fitting, lightweight, and light-colored. If it is very cold: ?Avoid activities that take a lot of energy. ?Layer your clothes. ?Wear mittens or gloves, a hat, and a scarf when you go outside. ?Avoid alcohol. Follow these instructions at home: Stay up to date with shots (vaccines). Get pneumococcal and flu (influenza) shots. Keep all follow-up visits as told by your doctor. This is important. Contact a doctor if: You gain weight quickly. You have increasing shortness of breath. You cannot do your normal activities. You get tired easily. You cough a lot. You don't feel like eating or feel like you may vomit (nauseous). You become puffy (swell) in your hands, feet, ankles, or belly (abdomen). You cannot sleep well because it is hard to breathe. You feel like your heart is beating fast (palpitations). You get dizzy when you stand up. Get help right away if: You have trouble breathing. You or someone else notices a change in your behavior, such as having trouble staying awake. You have chest pain or discomfort. You pass out (faint). These symptoms may be an emergency. Do not wait to see if the symptoms will go away. Get medical help right away. Call your local emergency services (911 in the [place] Do not drive yourself to the hospital. Summary Heart failure is a serious condition. To care for yourself, you may have to change your diet, take medicines, and make other lifestyle changes. Take your medicines every day. Do not stop taking them unless your doctor tells you to do so. Eat heart-healthy foods, such as fresh or frozen fruits and vegetables, fish, lean meats, legumes, fat-free or low-fat dairy products, and whole-grain or high-fiber foods. Ask your doctor if you can drink alcohol. You may have to stop alcohol use if you have very bad heart failure. Contact your doctor if you gain weight quickly or feel that your heart is beating too fast. Get help right away if you pass out, or have chest pain or trouble breathing. This information is not intended to replace advice given to you by your health care provider. Make sure you discuss any questions you have with your health care provider. Document Released: 02/10/2020 Document Revised: 02/09/2020 Document Reviewed: 02/10/2020 [employer] Patient Education 2020 [employer] 05/24/2025 11:49:25 Chronic Obstructive Pulmonary Disease Exacerbation, Qrvj-yk-Ibnq Chronic Obstructive Pulmonary Disease Exacerbation Chronic obstructive pulmonary disease (COPD) is a long-term (chronic) lung problem. In COPD, the flow of air from the lungs is limited. COPD exacerbations are times that breathing gets worse and you need more than your normal treatment. Without treatment, they can be life threatening. If they happen often, your lungs can become more damaged. If your COPD gets worse, your doctor may treat you with: Medicines. Oxygen. Different ways to clear your airway, such as using a mask. Follow these instructions at home: Medicines Take llyp-dug-vtejkzt and prescription medicines only as told by your doctor. If you take an antibiotic or steroid medicine, do not stop taking the medicine even if you start tofeel better. Keep up with shots (vaccinations) as told by your doctor. Be sure to get a yearly (annual) flu shot. Lifestyle Do not smoke. If you need help quitting, ask your doctor. Eat healthy foods. Exercise regularly. Get plenty of sleep. Avoid tobacco smoke and other things that can bother your lungs. Wash your hands often with soap and water. This will help keep you from getting an infection. If you cannot use soap and water, use hand neurology teacher. During flu season, avoid areas that are crowded with people. General instructions Drink enough fluid to keep your pee (urine) clear or pale yellow. Do not do this if your doctor hastold you not to. Use a cool mist machine (vaporizer). If you use oxygen or a machine that turns medicine into a mist (nebulizer), continue to use it as told. Follow all instructions for rehabilitation. These are steps you can take to make your body work better. Keep all follow-up visits as told by your doctor. This is important. Contact a doctor if: Your COPD symptoms get worse than normal. Get help right away if: You are short of breath and it gets worse. You have trouble talking. You have chest pain. You cough up blood. You have a fever. You keep throwing up (vomiting). You feel weak or you pass out (faint). You feel confused. You are not able to sleep because of your symptoms. You are not able to do daily activities. Summary COPD exacerbations are times that breathing gets worse and you need more treatment than normal. COPD exacerbations can be very serious and may cause your lungs to become more damaged. Do not smoke. If you need help quitting, ask your doctor. Stay up-to-date on your shots. Get a flu shot every year. This information is not intended to replace advice given to you by your health care provider. Make sure you discuss any questions you have with your health care provider. Document Released: 10/16/2012 Document Revised: 10/10/2018 Document Reviewed: 12/02/2017 [employer] Patient Education 2020 [employer] [facility] 07-14-2025 Nurse Progress note Report called to PETERSON Lauren at [facility] at this time. Digitally Signed by Krissy Russo RN on 05/24/2025 01:31 PM [facility]07-14-2025 Nurse Progress note RN attempted to call report to [facility] at [phone] and [phone] but there was no answer. Transport ETA is [phone]. Digitally Signed by Krissy Russo RN on 05/24/2025 01:22 PM [facility]07-14-2025 Note Discharge Instructions Thank you for allowing [facility] to assist you with your healthcare needs. The following is importantdischarge information regarding your hospital visit. Your Care Team EMMA QUEEN DO Your Diagnosis Acute exacerbation of chronic heart failure Anxiety CAD in [place] artery Chronic respiratory failure COPD exacerbation Psychophysiologic insomnia Stented coronary artery What to do next Instructions From Your Doctor Patient was admitted due acute congestive heart failure and COPD exacerbation. On admission, she had significant edema to her face and lower extremities. She had an echocardiogram in 12/2024 which revealed EF 30%. We initially started patient on Lasix 40 mg IV twice daily but have been able to reduce it to Lasix 40 mg oral once daily. She currently appears euvolemic. She was also treated for a COPD exacerbation. Her lungs are clear and she has no evidence of edema today on exam. Patient was seenby PT and OT who recommended a skilled stay for strengthening. She is medically optimized to transfer today to [facility] for a skilled stay. Scheduled Follow-Up Appointments Appointment Type When With Where Contact Information StatusPC OV 07/30/2025 10:00 AM EDT EMMA QUEEN [address] [id number] Confirmed The Following Activity and Diet Have Been Ordered for You Transfer of Care Activity - Ordered -- As instructed by therapy, 05/24/25 12:01:00 EDT Transfer of Care Diet - Ordered -- Type of Diet: Regular Diet, 05/24/25 12:01:00 EDT The Following Equipment Has Been Ordered for You No qualifying data available. The Following Treatments Have Been Ordered for You Discharge Labs No qualifying data available. Discharge Radiology No qualifying data available. Other Therapies Transfer of Care OT - Ordered -- Reason for therapy: weakness, 05/24/25 12:01:00 EDT Transfer of Care PT - Ordered -- Reason for therapy: Weakness, 05/24/25 12:01:00 EDT Post Acute Orders Transfer of Care Admission Level of Care - Ordered -- Level of Care SNF, 05/24/25 12:01:45 EDT Transfer of Care Code Status - Ordered -- DNRCC-Arrest Do Not Intubate, Constant Order Transfer of Care Orders Electronically Signed By - Ordered -- 05/24/25 12:01:00 EDT, EMMA [facility] Transfer of Care Oxygen Therapy - Ordered -- Oxygen (CONTINUOUS), Mobile in the Home, Nasal Cannula, 2 liters per minute, 99 month(s), 05/24/25 12:01:00 EDT Transfer of Care Prognosis - Ordered -- Fair, Patient Aware: Yes Transfer of Care Rehab Potential - Ordered -- Rehab potential anuel, 05/24/25 12:01:45 EDT Someone Will Contact You Regarding These Home Health Referrals No home referrals have been ordered for you. No one will call you. Allergies NKA Medications Please ask your primary doctor or pharmacist before taking any other medication not listed, including over the counter drugs, herbal medications, vitamins and or supplements as they may interact withyour home medications. What How Much When Why Instructions Last Dose New furosemide (Lasix 40 mg oral tablet) 1 tab(s) by mouth Once a day 05/24 @ 9 am New pantoprazole (Protonix 20 mg oral enteric coated tablet) 2 tab(s) by mouth Once a day before a meal 05/24 @ 6 am Unchanged albuterol (albuterol MDI (90 mcg/ inh) CFC free inhalation aerosol) 2 puff(s) by inhalation Four (4) times a day as needed for as needed for wheezing COPD with chronic bronchitis Not given Unchanged albuterol (albuterol 0.63 mg/ 3 mL (0.021%) inhalation solution) 3 Milliliter by inhalation Four (4) times a day 05/24 @ 12 pm Unchanged amLODIPine (amLODIPine 5 mg oral tablet) 1 tab(s) by mouth Once a day 05/24 @ am Unchanged aspirin (aspirin 81 mg oral tablet, chewable) 81 Milligram Chewed Once a day Stented coronary artery CAD in [place] artery 05/24 @ am Unchanged busPIRone (busPIRone 5 mg oral tablet) 1 tab(s) by mouth Three (3) times a day Duration: 30 Days 05/24 @ 9 am Unchanged caffeine (caffeine 200 mg oral tablet) 1 tab(s) by mouth Every 4 hours plus green tea extract 220mg Not given Unchanged clopidogrel (clopidogrel 75 mg oral tablet) 1 tab(s) by mouth Every day 05/24 @ 9 am Unchanged DME (Nebulizer (Compressor)) See instructions COPD with chronic bronchitis Nebulizer machine and supplies Not given Unchanged ePHEDrine (Bronkaid Max 25 mg oral tablet) 1 tab(s) by mouth Every 4 hours not to exceed 6 tablets/ day Not given Unchanged fluticasone/ umeclidinium/ vilanterol (Trelegy Ellipta 200 mcg-62.5 mcg-25 mcg/ inh inhalation powder) 1 puff(s) by inhalation Once a day at the same time every day Not given Unchanged metoprolol (metoprolol succinate 50 mg oral TABLET extended release) 1 tab(s) by mouth Once a day Do not crush or chew (controlled release) 05/24 @ 9 am Unchanged rosuvastatin (Crestor 20 mg oral tablet) 1 tab(s) by mouth Once a day 05/23 @ 9 pm Unchanged sacubitril-valsartan (Entresto 24 mg-26 mg oral tablet) 1 tab(s) by mouth Two (2) times a day 05/24 @ 9 am Unchanged traZODone (traZODone 100 mg oral tablet) 1 tab(s) by mouth Daily at bedtime Psychophysiologic insomnia 05/23 @ 9 pm Please take this list to your next doctor s visit. Bring all medications you take, including over the counter medications, herbals and other supplements with you to your doctor s visit. Patients and families are reminded to discard old lists and to update any records with all medication providers or retail pharmacies. Education Materials Heart Failure, Self Care Heart failure is a serious condition. This sheet explains things you need to do to take care of yourself at home. To help you stay as healthy as possible, you may be asked to change your diet, take certain medicines, and make other changes in your life. Your doctor may also give you more specific instructions. If you have problems or questions, call your doctor. What are the risks? Having heart failure makes it more likely for you to have some problems. These problems can get worse if you do not take good care of yourself. Problems may include: Blood clotting problems. This may cause a stroke. Damage to the kidneys, liver, or lungs. Abnormal heart rhythms. Supplies needed: Scale for weighing yourself. Blood pressure monitor. Notebook. Medicines. How to care for yourself when you have heart failure Medicines Take hmtp-izv-mxnrhvv and prescription medicines only as told by your doctor. Take your medicines every day. Do not stop taking your medicine unless your doctor tells you to do so. Do not skip any medicines. Get your prescriptions refilled before you run out of medicine. This is important. Eating and drinking Eat heart-healthy foods. Talk with a diet specialist (dietitian) to create an eating plan. Choose foods that: ? Have no trans fat. ? Are low in saturated fat and cholesterol. Choose healthy foods, such as: ? Fresh or frozen fruits and vegetables. ? Fish. ? Low-fat (lean) meats. ? Legumes, such as beans, peas, and lentils. ? Fat-free or low-fat dairy products. ? Whole-grain foods. ? High-fiber foods. Limit salt (sodium) if told by your doctor. Ask your diet specialist to tell you which seasonings are healthy for your heart. Cook in healthy ways instead of frying. Healthy ways of cooking include roasting, grilling, broiling, baking, poaching, steaming, and stir-frying. Limit how much fluid you drink, if told by your doctor. Alcohol use Do not drink alcohol if: ? Your doctor tells you not to drink. ? Your heart was damaged by alcohol, or you have very bad heart failure. ? You are , may be , or are planning to become . If you drink alcohol: ? Limit how much you use to: ? 0 1 drink a day for women. ? 0 2 drinks a day for men. ? Be aware of how much alcohol is in your drink. In the [place] one drink equals one 12 oz bottle of beer (355 mL), one 5 oz glass of wine (148 mL), or one 1 oz glass of hard liquor (44 mL). Lifestyle Do not use any products that contain nicotine or tobacco, such as cigarettes, e- cigarettes, and chewing tobacco. If you need help quitting, ask your doctor. ? Do not use nicotine gum or patches before talking to your doctor. Do not use illegal drugs. Lose weight if told by your doctor. Do physical activity if told by your doctor. Talk to your doctor before you begin an exercise if: ? You are an older adult. ? You have very bad heart failure. Learn to manage stress. If you need help, ask your doctor. Get rehab (rehabilitation) to help you stay independent and to help with your quality of life. Plan time to rest when you get tired. Check weight and blood pressure Weigh yourself every day. This will help you to know if fluid is building up in your body. ? Weigh yourself every morning after you pee (urinate) and before you eat breakfast. ? Wear the same amount of clothing each time. ? Write down your daily weight. Give your record to your doctor. Check and write down your blood pressure as told by your doctor. Check your pulse as told by your doctor. Dealing with very hot and very cold weather If it is very hot: ? Avoid activities that take a lot of energy. ? Use air conditioning or fans, or find a cooler place. ? Avoid caffeine and alcohol. ? Wear clothing that is loose-fitting, lightweight, and light-colored. If it is very cold: ? Avoid activities that take a lot of energy. ? Layer your clothes. ? Wear mittens or gloves, a hat, and a scarf when you go outside. ? Avoid alcohol. Follow these instructions at home: Stay up to date with shots (vaccines). Get pneumococcal and flu (influenza) shots. Keep all follow-up visits as told by your doctor. This is important. Contact a doctor if: You gain weight quickly. You have increasing shortness of breath. You cannot do your normal activities. You get tired easily. You cough a lot. You don't feel like eating or feel like you may vomit (nauseous). You become puffy (swell) in your hands, feet, ankles, or belly (abdomen). You cannot sleep well because it is hard to breathe. You feel like your heart is beating fast (palpitations). You get dizzy when you stand up. Get help right away if: You have trouble breathing. You or someone else notices a change in your behavior, such as having trouble staying awake. You have chest pain or discomfort. You pass out (faint). These symptoms may be an emergency. Do not wait to see if the symptoms will go away. Get medical help right away. Call your local emergency services (911 in the [place] Do not drive yourself to the hospital. Summary Heart failure is a serious condition. To care for yourself, you may have to change your diet, take medicines, and make other lifestyle changes. Take your medicines every day. Do not stop taking them unless your doctor tells you to do so. Eat heart-healthy foods, such as fresh or frozen fruits and vegetables, fish, lean meats, legumes, fat-free or low-fat dairy products, and whole-grain or high-fiber foods. Ask your doctor if you can drink alcohol. You may have to stop alcohol use if you have very bad heart failure. Contact your doctor if you gain weight quickly or feel that your heart is beating too fast. Get help right away if you pass out, or have chest pain or trouble breathing. This information is not intended to replace advice given to you by your health care provider. Make sure you discuss any questions you have with your health care provider. Document Released: 02/10/2020 Document Revised: 02/09/2020 Document Reviewed: 02/10/2020 Elsevier Patient Education 2020 [employer]. Chronic Obstructive Pulmonary Disease Exacerbation Chronic obstructive pulmonary disease (COPD) is a long-term (chronic) lung problem. In COPD, the flow of air from the lungs is limited. COPD exacerbations are times that breathing gets worse and you need more than your normal treatment. Without treatment, they can be life threatening. If they happen often, your lungs can become more damaged. If your COPD gets worse, your doctor may treat you with: Medicines. Oxygen. Different ways to clear your airway, such as using a mask. Follow these instructions at home: Medicines Take jewy-yot-orqtmio and prescription medicines only as told by your doctor. If you take an antibiotic or steroid medicine, do not stop taking the medicine even if you start tofeel better. Keep up with shots (vaccinations) as told by your doctor. Be sure to get a yearly (annual) flu shot. Lifestyle Do not smoke. If you need help quitting, ask your doctor. Eat healthy foods. Exercise regularly. Get plenty of sleep. Avoid tobacco smoke and other things that can bother your lungs. Wash your hands often with soap and water. This will help keep you from getting an infection. If you cannot use soap and water, use hand neurology teacher. During flu season, avoid areas that are crowded with people. General instructions Drink enough fluid to keep your pee (urine) clear or pale yellow. Do not do this if your doctor hastold you not to. Use a cool mist machine (vaporizer). If you use oxygen or a machine that turns medicine into a mist (nebulizer), continue to use it as told. Follow all instructions for rehabilitation. These are steps you can take to make your body work better. Keep all follow-up visits as told by your doctor. This is important. Contact a doctor if: Your COPD symptoms get worse than normal. Get help right away if: You are short of breath and it gets worse. You have trouble talking. You have chest pain. You cough up blood. You have a fever. You keep throwing up (vomiting). You feel weak or you pass out (faint). You feel confused. You are not able to sleep because of your symptoms. You are not able to do daily activities. Summary COPD exacerbations are times that breathing gets worse and you need more treatment than normal. COPD exacerbations can be very serious and may cause your lungs to become more damaged. Do not smoke. If you need help quitting, ask your doctor. Stay up-to-date on your shots. Get a flu shot every year. This information is not intended to replace advice given to you by your health care provider. Make sure you discuss any questions you have with your health care provider. Document Released: 10/16/2012 Document Revised: 10/10/2018 Document Reviewed: 12/02/2017 [employer] Patient Education 2020 [employer]. Additional Information VACCINATE! IT SAVES LIVES! Members of the community who have not yet received the COVID-19 vaccine and would like to receive it can visit one of [facility] vaccine clinics. There are many vaccine clinic locations within the [facility]. For locations and available times, please visit [email or web address].[place].gov/. It is important to note that some COVID mobile vaccine clinics are held outdoors and may be canceled in rainy or stormy conditions. To learn more about pediatric vaccinations (ages 5-11), we invite you to visit the [facility] webpage. [email or web address] learn more about the COVID-19 vaccine, we invite you to visit the CDC website for a list of frequently asked questions.https://www.cdc.gov/coronavirus/2019-ncov/vaccines/faq.html [facility] Patient Portal Access Instructions: Stay connected with your healthcare team and access your personal medical information anytime with the [facility] Patient Portal. Please follow the directions below to create your [facility] account: 1.Access the email account you provided upon registration to the hospital/physician office.2.Look for an invitation email from [facility].3.Open the email and access the invitation link: AcceptInvitation to [facility].4.Fill in the required randle to create your account. To access your account, visit [email or web address]. Click the blue button labeled "Access Patient Portal" and then log in with the username and password that you created in the steps above. You will be able to view your test results, lab results, a summary of your visits, upcoming appointments and more. There is also a convenient messaging option where you can send secure messages to your p rovider. In addition, you will have the ability to download any documents or summaries to your computer and/or send the information securely to a physician. Remember that your healthcare information is confidential, so carefully consider who you will allowto register on the [facility] Patient Portal for access to your information. You can also access the [facility] Patient Portal on the [facility] larissa. Simply click on "Patient Portal" and then log into your account. If you would like to receive a full copy of your medical records, please contact the [facility] Medical Records Department by calling [phone], Saturday through Saturday between 8 a.m. and 4:30 p.m. HOW TO SAFELY DISPOSE OF PRESCRIPTION MEDICATIONS Please use one of the following methods to safely dispose of your unused medications. 1.Use a drug disposal kit: the drug disposal pouch allows you to safely discard your old and unuseddrugs. Ask your nurse to give you one when you are discharged.2.Visit a local take-back location: Many local pharmacies and police departments have programs that collect old and unwanted prescriptiondrugs. Call your local pharmacy or go to http://bit.Pluto.TV/7X5Cn4c to find one close to you.3.Make use of household items: Use cat litter or old coffee grounds to dispose medications if other options arenot available. Mix your drugs with these household products, seal them in an airtight container andthrow it into the garbage. Call [facility]: [phone] to be sure your drugs can be disposed of in this way. Some medicines may require a different approach.4.Never flush your medications down the toilet. IF YOU HAVE BEEN PRESCRIBED AN OPIOID FOR PAIN If you have been prescribed [...] have withdrawal symptoms when a medication is stopped, can develop within a few days. KNOW [...] children, family, friends and visitors). The last page of this document has been signed and retained as a CHART COPY. Signatures Patient Education Materials Heart Failure, Self Care, Ykct-py-Wxyc Chronic Obstructive Pulmonary Disease Exacerbation, Tdii-vk-Rlrl Medication Leaflets My discharge plan and instructions have been reviewed and explained to me and I,STEVEN KOENIG understand my current condition and have read and understand these discharge instructions. I have received a written copy of the plan/instructions. If I have questions, I am aware that I should contact my doctor. 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 She states that she is doing well and has no complaints. After thinking for a minute, she does have a complaint. She states that all she does all day is urinate. She wants to know why that is. Patient advised that she has heart failure and the diuretic she takes is probably causing her to urinate a lot. She states that she wants that to go away. She has an echo in the system from 12/2024 which shows EF 30%. The lasix was likely started by her info print press operator so this provider is not changing it. She can discuss it further with her info print press operator. Patient wanted to walk down to the sun room so walked along as standby assist. Patient states that her daughter is supposed to come in and visit. Patient advisedto get our attention when she wants to walk back to her room. All questions answered. Objective Vitals and Measurements T: 36.5 C (Oral) TMIN: 36.5 C (Oral) TMAX: 36.8 C (Oral) HR: 83 RR: 20 BP: 126/61 SpO2: 93% WT: 51.4 kg Intake and Output 7AM Yesterday to 7AM Today Intake and Output (Last 24 hours) Intake Oral Intake 400.00 Supplement Intake 120.00 Output Urine Count 5.00 Total Summary Total Intake 520.00 Total Output 0.00 Fluid Balance 520.00 Physical Exam General: No acute distress. Patient is alert, chronically ill-appearing. Skin: h. Skin is warm, dry and intact. HEENT: Head is normocephalic, atraumatic. Pupils are equal, round and reactive. Neck: Supple. No lymphadenopathy, thyromegaly. Lungs: Bilaterally clear but diminished without crepitation or wheeze. Unlabored. Heart: Heart is regular rhythm, S1, S2. No murmurs, gallops or rubs. Abdomen: Abdomen is soft, nontender. Bowels sounds present in all quadrants. Extremities: No clubbing, cyanosis, or edema. Peripheral pulses palpable. No calf tenderness. Neurological: Patient is awake and alert to person, place and time. Following simple commands, moving all extremities. Weight Current Weight Dosing Weight: 52.9 kg (05/16/25) Current Weight: 51.4 kg (05/23/25) Current Weight: 51.3 kg (05/22/25) Medications Medications (20) Active Scheduled: (11) albuterol - ipratropium 2.5 mg-0.5 mg/3 mL Inhal Elizabeth UD 3 mL, Inhalation, QIDRT aspirin 81 mg Chewable 81 mg 1 tab(s), Chewed, qDay atorvastatin 40 mg tablet 40 mg 1 tab(s), Oral, qHS budesonide 0.5 mg/2 mL Susp UD 0.5 mg 2 mL, Nebulized, BIDRT busPIRone 5 mg Tablet 10 mg 2 tab(s), Oral, TID clopidogrel 75 mg Tablet 75 mg 1 tab(s), Oral, Daily enoxaparin 40 mg/ 0.4mL syringe 40 mg 0.4 mL, Subcutaneous, qDay furosemide 40 mg tablet 40 mg 1 tab(s), Oral, qDay pantoprazole 20 mg EC tablet 40 mg 2 tab(s), Oral, qDayAC sacubitril-valsartan 24-26 mg oral tablet 1 tab(s), Oral, BID traZODONE 50 mg Tablet 100 mg 2 tab(s), Oral, qHS Continuous: (0) PRN: (9) acetaminophen 325 mg Tablet 650 mg 2 tab(s), Oral, q4h acetaminophen 325 mg Tablet 650 mg 2 tab(s), Oral, q4h Al hydrox/Mg hydrox/simethicone 200-200-20 mg/5 mL Susp UD 30 mL, Oral, q2h albuterol 0.083% Soln UD (2.5mg/3 mL) 2.5 mg 3 mL, Inhalation, q2hRT dextrose 50% Solution Disp syringe 50 mL 25 gram(s) 50 mL, IV Push, AsDirected lidocaine topical 2% viscous (15mL) UD 5 mL, Oral, achs LORAZEPam 0.5 mg tablet 0.5 mg 1 tab(s), Oral, TID melatonin 3 mg tablet 6 mg 2 tab(s), Oral, qHS ondansetron 2 mg/ 1 mL 2 mL INJ 4 mg 2 mL, IV Push, q4h Lab Results No 36 Hour Lab Data Imaging Results and Diagnostics XR Chest 1 View Result Date: May 16, 2025 Verified By: ANTHONY MERIDA MD CLINICAL STATEMENT: IMPRESSION: Left pleural fluid with adjacent airspace disease. Pulmonary vascular and reticular interstitial prominence which could reflect mild congestion/interstitial edema. Underlying infection not excluded. I have personally reviewed the images of this examination and agree with the resident's findings and interpretation. EKG No qualifying data available. Assessment/Plan 1. Acute exacerbation of chronic heart failure HFR with acute exacerbation-BNP elevated over 5000 - down to 4500. X-ray chest shows left pleural fluid and pulmonary vascular and reticular interstitial prominence (7/6). Resolution of facial edema and BLE edema. Respiratory status overall improved. Continue Lasix at 40 mg PO daily. Patient complaining of urinating frequently and does not want the Lasix. She can refuse but we are not changing the dose of discontinuing it. Echo show EF 30% in 12/2024. CO2 on BMP elevated at 41 - now 38. Likely secondary to diuresis as well as supplemental oxygen. Nursing and respiratory notified that oxygen saturations should be kept between 88 to 92%. 2. COPD exacerbation Resolved. Patient on room air today with good oxygen saturations. Finished prednisone course. Continue inhaled bronchodilators. 3. Chronic respiratory failure Continue home dose of supplemental oxygen. Keep oxygen saturations between 88 to 92%. 4. Anxiety BuSpar to 10 mg p.o. 3 times daily and PRN ativan. esophagitis - continue protonix 40 mg PO qday. Continue viscous lidocaine PRN. Weakness-PT and OT recommending SNF. Awaiting precert for Bereket Javed. Patient is medically optimized for discharge whenever precert is obtained. DVT prophylaxis with Lovenox sc. Code status: DNRCCA - do not intubate. Labs, diagnostic test and progress notes reviewed as noted in HPI. Plan of care discussed with patient. All questions answered. Patient verbalizes understanding and is agreeable with plan of care. This case was discussed with collaborating physician, Dr. Reinaldo Joseph. Anticipated Date of Discharge next 24 hours Time Spent 34 minutes spent reviewing past diagnostic tests, reviewing lab results, vital sign trends, medicalhistory, reviewing medications and ordering home medications, examining patient, discussed plan of care with care team, collaborating with physician, and documenting in chart. Digitally Signed by EMMA DEMARCO on 05/23/2025 03:23 PM [place] [id number] Note. MICRO - Microbiology PROCEDURE: Blood Culture (bacterial) [*1] SOURCE: Blood BODY SITE: COLLECTED DATE/TIME: 05/17/2025 01:04 EDT RECEIVED DATE/TIME: 05/17/2025 13:45 EDT START DATE/TIME: 05/17/2025 13:45 EDT FREE TEXT SOURCE: FINAL REPORTS Final Report [] Verified Date/Time/Personnel: 05/22/2025 13:59 EDT Blood Culture: No Growth at 5 days. PRELIMINARY REPORTS Preliminary Report [] Verified Date/Time/Personnel: 05/17/2025 14:59 EDT Culture has been received in lab and is no growth to date. Routine cultures are held for 5 days. Performing Locations *1: This test was performed at: [address], [address] [place], [place] [id number] Note. MICRO - Microbiology PROCEDURE: Blood Culture (bacterial) [*1] SOURCE: Blood BODY SITE: COLLECTED DATE/TIME: 05/17/2025 01:04 EDT RECEIVED DATE/TIME: 05/17/2025 13:45 EDT START DATE/TIME: 05/17/2025 13:45 EDT FREE TEXT SOURCE: FINAL REPORTS Final Report [] Verified Date/Time/Personnel: 05/22/2025 13:59 EDT Blood Culture: No Growth at 5 days. PRELIMINARY REPORTS Preliminary Report [] Verified Date/Time/Personnel: 05/17/2025 14:59 EDT Culture has been received in lab and is no growth to date. Routine cultures are held for 5 days. Performing Locations *1: This test was performed at: [address], [address] [place], [place] [id number] Nurse Progress note Pt expressing frustration re: awaiting insurance approval for transfer to SNF. Pt angry with profanities, emotional support provided. TORI Sin in to see patient with update on process. PRN ativan administered per orders. Pt states she is considering leaving and going home today. Pt educated on plan of care and need for SNF services. BATCHING OPERATOR Emma made aware. Digitally Signed by Nayana Gudino RN on 05/22/2025 12:24 PM [facility] [id number] Note Date of Service 05/22/2025 Chief Complaint weakness Subjective Patient seen and evaluated this morning while resting in bed. She states that she is doing well butis getting tired of sitting here waiting. She is worried that insurance will not pay her hospital bill because she is literally sitting here not being treated for anything. Explained to patient that she cannot go to the correction for a skilled stay until her insurance company gives approval. Likewise, they should pay her hospital bill because they are holding up this process. She is requestingto speak to the social media editor. She is aware that the social media editor is coming in today but we are not sure when. Will leave a note for her to speak to patient. Patient is also aware that it is possible that an approval was given late last night and she will check for that too when she comes in. Patient is requesting that respiratory come up and give her a breathing treatment. She denies any fever,chills, cough, chest pain, abdominal pain, nausea or dysuria. All questions answered. Objective Vitals and Measurements T: 36.5 C (Oral) TMIN: 36.5 C (Oral) TMAX: 36.7 C (Oral) HR: 79 RR: 20 BP: 122/65 SpO2: 90% WT: 51.3 kg Intake and Output 7AM Yesterday to 7AM Today Intake and Output (Last 24 hours) Intake Supplement Intake 120.00 Output Urine Count 1.00 Total Summary Total Intake 120.00 Total Output 0.00 Fluid Balance 120.00 Physical Exam General: No acute distress. Patient is alert, chronically ill-appearing. Skin: No rash. Skin is warm, dry and intact. HEENT: Head is normocephalic, atraumatic. Pupils are equal, round and reactive. Neck: Supple. No lymphadenopathy, thyromegaly. Lungs: Bilaterally clear but diminished without crepitation or wheeze. Unlabored. Heart: Heart is regular rhythm, S1, S2. No murmurs, gallops or rubs. Abdomen: Abdomen is soft, nontender. Bowels sounds present in all quadrants. Extremities: No clubbing, cyanosis, or edema. Peripheral pulses palpable. No calf tenderness. Neurological: Patient is awake and alert to person, place and time. Following simple commands, moving all extremities. Weight Current Weight Dosing Weight: 52.9 kg (05/16/25) Current Weight: 51.3 kg (05/22/25) Current Weight: 51.9 kg (05/21/25) Medications Medications (20) Active Scheduled: (11) albuterol - ipratropium 2.5 mg-0.5 mg/3 mL Inhal Elizabeth UD 3 mL, Inhalation, QIDRT aspirin 81 mg Chewable 81 mg 1 tab(s), Chewed, qDay atorvastatin 40 mg tablet 40 mg 1 tab(s), Oral, qHS budesonide 0.5 mg/2 mL Susp UD 0.5 mg 2 mL, Nebulized, BIDRT busPIRone 5 mg Tablet 10 mg 2 tab(s), Oral, TID clopidogrel 75 mg Tablet 75 mg 1 tab(s), Oral, Daily enoxaparin 40 mg/ 0.4mL syringe 40 mg 0.4 mL, Subcutaneous, qDay furosemide 40 mg tablet 40 mg 1 tab(s), Oral, qDay pantoprazole 20 mg EC tablet 40 mg 2 tab(s), Oral, qDayAC sacubitril-valsartan 24-26 mg oral tablet 1 tab(s), Oral, BID traZODONE 50 mg Tablet 100 mg 2 tab(s), Oral, qHS Continuous: (0) PRN: (9) acetaminophen 325 mg Tablet 650 mg 2 tab(s), Oral, q4h acetaminophen 325 mg Tablet 650 mg 2 tab(s), Oral, q4h Al hydrox/Mg hydrox/simethicone 200-200-20 mg/5 mL Susp UD 30 mL, Oral, q2h albuterol 0.083% Soln UD (2.5mg/3 mL) 2.5 mg 3 mL, Inhalation, q2hRT dextrose 50% Solution Disp syringe 50 mL 25 gram(s) 50 mL, IV Push, AsDirected lidocaine topical 2% viscous (15mL) UD 5 mL, Oral, achs LORAZEPam 0.5 mg tablet 0.5 mg 1 tab(s), Oral, TID melatonin 3 mg tablet 6 mg 2 tab(s), Oral, qHS ondansetron 2 mg/ 1 mL 2 mL INJ 4 mg 2 mL, IV Push, q4h Lab Results 05/21 06:06 Glucose Level: 124 H Sodium Level: 147 H Potassium Level: 3.6 BUN: 26 H Creatinine Lvl (s): 0.80 Imaging Results and Diagnostics XR Chest 1 View Result Date: May 16, 2025 Verified By: ANTHONY MERIDA MD CLINICAL STATEMENT: IMPRESSION: Left pleural fluid with adjacent airspace disease. Pulmonary vascular and reticular interstitial prominence which could reflect mild congestion/interstitial edema. Underlying infection not excluded. I have personally reviewed the images of this examination and agree with the resident's findings and interpretation. EKG No qualifying data available. Assessment/Plan 1. Acute exacerbation of chronic heart failure HFR with acute exacerbation-BNP elevated over 5000 - down to 4500. X-ray chest shows left pleural fluid and pulmonary vascular and reticular interstitial prominence (05/16). Resolution of facial edema and BLE edema. Respiratory status overall improved. Decrease Lasix to 40 mg PO daily. CO2 on BMP elevated at 41 - now 38. Likely secondary to diuresis as well as supplemental oxygen. Nursing and respiratory notified that oxygen saturations should be kept between 88 to 92%. 2. COPD exacerbation Resolved. Patient on room air today with good oxygen saturations. Last dose of prednisone today. Continue inhaled bronchodilators. 3. Chronic respiratory failure Continue home dose of supplemental oxygen. Keep oxygen saturations between 88 to 92%. 4. Anxiety BuSpar to 10 mg p.o. 3 times daily and PRN ativan. esophagitis - continue protonix 40 mg PO qday. Continue viscous lidocaine PRN. Weakness-PT and OT recommending SNF. Awaiting precert for Bereket Javed. Patient is medically optimized for discharge whenever precert is obtained. DVT prophylaxis with Lovenox sc. Code status: DNRCCA - do not intubate. Labs, diagnostic test and progress notes reviewed as noted in HPI. Plan of care discussed with patient. All questions answered. Patient verbalizes understanding and is agreeable with plan of care. This case was discussed with collaborating physician, Dr. Reinaldo Joesph. Anticipated Date of Discharge waiting for precert Time Spent 36 minutes spent reviewing past diagnostic tests, reviewing lab results, vital sign trends, medicalhistory, reviewing medications and ordering home medications, examining patient, discussed plan of care with care team, collaborating with physician, and documenting in chart. Digitally Signed by EMMA DEMARCO on 05/22/2025 11:25 AM [facility] [id number] Note Date of Service 05/21/2025 Chief Complaint weakness Subjective Patient seen and evaluated this morning while resting in bed. Patient extremely rude and makes it apoint to let staff and this provider know that she does not want to be disturbed. Patient advised that she is in a hospital and we have to monitor her until she is discharged. We are still waiting for her insurance company to approve her for a skilled stay at [facility]. If we do not get precert today, she will likely be here all weekend. Patient denies any needs. All questions answered. Objective Vitals and Measurements T: 36.6 C (Oral) TMIN: 36.5 C (Oral) TMAX: 36.9 C (Oral) HR: 73 RR: 24 BP: 124/75 SpO2: 93% WT: 51.9 kg Intake and Output 7AM Yesterday to 7AM Today Intake and Output (Last 24 hours) Intake Output Urine Count 1.00 Total Summary Total Intake 0.00 Total Output 0.00 Fluid Balance 0.00 Physical Exam General: No acute distress. Patient is alert, chronically ill-appearing. Skin: No rash. Skin is warm, dry and intact. HEENT: Head is normocephalic, atraumatic. Pupils are equal, round and reactive. Neck: Supple. No lymphadenopathy, thyromegaly. Lungs: Bilaterally clear but diminished without crepitation or wheeze. Unlabored. Heart: Heart is regular rhythm, S1, S2. No murmurs, gallops or rubs. Abdomen: Abdomen is soft, nontender. Bowels sounds present in all quadrants. Extremities: No clubbing, cyanosis, or edema. Peripheral pulses palpable. No calf tenderness. Neurological: Patient is awake and alert to person, place and time. Following simple commands, moving all extremities. Weight Current Weight Dosing Weight: 52.9 kg (05/16/25) Current Weight: 51.9 kg (05/21/25) Current Weight: 46.7 kg (05/19/25) Medications Medications (21) Active Scheduled: (12) albuterol - ipratropium 2.5 mg-0.5 mg/3 mL Inhal Elizabeth UD 3 mL, Inhalation, QIDRT aspirin 81 mg Chewable 81 mg 1 tab(s), Chewed, qDay atorvastatin 40 mg tablet 40 mg 1 tab(s), Oral, qHS budesonide 0.5 mg/2 mL Susp UD 0.5 mg 2 mL, Nebulized, BIDRT busPIRone 5 mg Tablet 10 mg 2 tab(s), Oral, TID clopidogrel 75 mg Tablet 75 mg 1 tab(s), Oral, Daily enoxaparin 40 mg/ 0.4mL syringe 40 mg 0.4 mL, Subcutaneous, qDay furosemide 40 mg tablet 40 mg 1 tab(s), Oral, qDay pantoprazole 20 mg EC tablet 40 mg 2 tab(s), Oral, qDayAC predniSONE 20 mg tablet 40 mg 2 tab(s), Oral, qDayM sacubitril-valsartan 24-26 mg oral tablet 1 tab(s), Oral, BID traZODONE 50 mg Tablet 100 mg 2 tab(s), Oral, qHS Continuous: (0) PRN: (9) acetaminophen 325 mg Tablet 650 mg 2 tab(s), Oral, q4h acetaminophen 325 mg Tablet 650 mg 2 tab(s), Oral, q4h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 replace advice given to you by your health care provider. Make sure you discuss any questions you have with your health care provider. Document Released: 01/17/2005 Document Revised: 04/16/2019 Document Reviewed: 05/21/2017 [employer] Patient Education 2020 [employer] 03/06/2025 11:50:46 Chronic Obstructive Pulmonary Disease, Izia-aj-Jzxy Chronic Obstructive Pulmonary Disease Chronic obstructive pulmonary disease (COPD) is a long-term (chronic) lung problem. When you have COPD, it is hard for air to get in and out of your lungs. Usually the condition gets worse over time,and your lungs will never return to normal. There are things you can do to keep yourself as healthyas possible. Your doctor may treat your condition with: ?Medicines. ?Oxygen. ?Lung surgery. Your doctor may also recommend: ?Rehabilitation. This includes steps to make your body work better. It may involve a team of specialists. ?Quitting smoking, if you smoke. ?Exercise and changes to your diet. ?Comfort measures (palliative care). Follow these instructions at home: Medicines Take rfpz-fea-rqtmaoz and prescription medicines only as told by your doctor. Talk to your doctor before taking any cough or allergy medicines. You may need to avoid medicines that cause your lungs to be dry. Lifestyle If you smoke, stop. Smoking makes the problem worse. If you need help quitting, ask your doctor. Avoid being around things that make your breathing worse. This may include smoke, chemicals, and fumes. Stay active, but remember to rest as well. Learn and use tips on how to relax. Make sure you get enough sleep. Most adults need at least 7 hours of sleep every night. Eat healthy foods. Eat smaller meals more often. Rest before meals. Controlled breathing Learn and use tips on how to control your breathing as told by your doctor. Try: Breathing in (inhaling) through your nose for 1 second. Then, pucker your lips and breath out (exhale) through your lips for 2 seconds. Putting one hand on your belly (abdomen). Breathe in slowly through your nose for 1 second. Your hand on your belly should move out. Pucker your lips and breathe out slowly through your lips. Your hand on your belly should move in as you breathe out. Controlled coughing Learn and use controlled coughing to clear mucus from your lungs. Follow these steps: 1.Lean your head a little forward. 2.Breathe in deeply. 3.Try to hold your breath for 3 seconds. 4.Keep your mouth slightly open while coughing 2 times. 5.Spit any mucus out into a tissue. 6.Rest and do the steps again 1 or 2 times as needed. General instructions Make sure you get all the shots (vaccines) that your doctor recommends. Ask your doctor about a flushot and a pneumonia shot. Use oxygen therapy and pulmonary rehabilitation if told by your doctor. If you need home oxygen therapy, ask your doctor if you should buy a tool to measure your oxygen level (oximeter). Make a COPD action plan with your doctor. This helps you to know what to do if you feel worse than usual. Manage any other conditions you have as told by your doctor. Avoid going outside when it is very hot, cold, or humid. Avoid people who have a sickness you can catch (contagious). Keep all follow-up visits as told by your doctor. This is important. Contact a doctor if: You cough up more mucus than usual. There is a change in the color or thickness of the mucus. It is harder to breathe than usual. Your breathing is faster than usual. You have trouble sleeping. You need to use your medicines more often than usual. You have trouble doing your normal activities such as getting dressed or walking around the house. Get help right away if: You have shortness of breath while resting. You have shortness of breath that stops you from: ?Being able to talk. ?Doing normal activities. Your chest hurts for longer than 5 minutes. Your skin color is more blue than usual. Your pulse oximeter shows that you have low oxygen for longer than 5 minutes. You have a fever. You feel too tired to breathe normally. Summary Chronic obstructive pulmonary disease (COPD) is a long-term lung problem. The way your lungs work will never return to normal. Usually the condition gets worse over time. There are things you can do to keep yourself as healthy as possible. Take xqvu-cvw-rshizgj and prescription medicines only as told by your doctor. If you smoke, stop. Smoking makes the problem worse. This information is not intended to replace advice given to you by your health care provider. Make sure you discuss any questions you have with your health care provider. Document Released: 04/15/2009 Document Revised: 10/10/2018 Document Reviewed: 12/02/2017 [employer] Patient Education 2020 [employer] Follow Up Care 03/04/2025 05:49:38 With:EMMA QUEEN DO Address: [address] [place] [phone] When:3-5 days Comments:Please call to schedule your post-hospital follow-up appointment. [facility] 04-26-2025 Note Discharge Instructions Thank you for allowing [facility] to assist you with your healthcare needs. The following is importantdischarge information regarding your hospital visit. Your Care Team [facility] Your Diagnosis CAD in [place] artery Cardiomyopathy Chronic obstructive pulmonary disease IGOR (generalized anxiety disorder) GERD (gastroesophageal reflux disease) History of noncompliance with medical treatment HTN (hypertension) Psychophysiologic insomnia Stented coronary artery What to do next Instructions From Your Doctor You are admitted for COPD and treated with steroids and breathing treatments. You are being discharged home with a prescription for a prednisone taper as well as BuSpar for anxiety. You can take this3 times per day. It is important that you continue to use your incentive spirometer and breathing treatments at home. You were agreeable to hospice consult and then declined. If you should change your mind you can call [facility] [employer] at [phone]. You indicated that you would be interested in assisted living facility. [facility] an assisted living and they also have Medicaid waiver. Their phone number is [phone]. You should be able tocall them on Saturday for more information. Scheduled Follow-Up Appointments Appointment Type When With Where Contact Information StatusCT Thorax Screening w/o Contrast 03/10/2025 04:00 PM EDT [facility] [phone] Confirmed PC OV 07/30/2025 10:00 AM EDT EMMA QUEEN DO [address] [phone] Confirmed Follow Up Appointments Follow Up with EMMA QUEEN DO When:Within 3-5 days Where:[address] [place] [phone] Additional Information: Please call to schedule your post-hospital follow-up appointment. The Following Activity and Diet Have Been Ordered for You Discharge Activity - Ordered -- Resume your pre-hospitalization activity, 03/06/25 11:07:00 EDT Discharge Diet - Ordered -- No changes were made to your diet during your hospital stay. Please resume your pre hospitalization diet on discharge., 03/06/25 11:07:00 EDT The Following Treatments Have Been Ordered for You Discharge Labs No qualifying data available. Discharge Radiology No qualifying data available. Other Therapies No qualifying data available. Post Acute Orders No qualifying data available. Someone Will Contact You Regarding These Home Health Referrals No home referrals have been ordered for you. No one will call you. Allergies NKA Medications Please ask your primary doctor or pharmacist before taking any other medication not listed, including over the counter drugs, herbal medications, vitamins and or supplements as they may interact withyour home medications. What How Much When Why Instructions Last Dose New busPIRone (busPIRone 5 mg oral tablet) 1 tab(s) by mouth Three (3) times a day Duration: 30 Days Pickup at [facility]/pharmacy #[id number] 03/06 New predniSONE (prednisone 10mg tab (TAPER)) Taper [id number] mg x 1 day until gone by mouth Once a day (in the morning) Duration: 8 Days Pickup at [facility]/pharmacy #[id number] [facility] 03/06 Unchanged albuterol (albuterol MDI (90 mcg/ inh) CFC free inhalation aerosol) 2 puff(s) by inhalation Four (4) times a day as needed for as needed for wheezing COPD with chronic bronchitis Pickup at [facility]/pharmacy #[id number] 03/06 Unchanged albuterol (albuterol 0.63 mg/ 3 mL (0.021%) inhalation solution) 3 Milliliter by inhalation Four (4) times a day Unchanged amLODIPine (amLODIPine 5 mg oral tablet) 1 tab(s) by mouth Once a day 03/06 Unchanged aspirin (aspirin 81 mg oral tablet, chewable) 81 Milligram Chewed Once a day Stented coronary artery CAD in [place] artery 03/06 Unchanged clopidogrel (clopidogrel 75 mg oral tablet) 1 tab(s) by mouth Every day 03/06 Unchanged DME (Nebulizer (Compressor)) See instructions COPD with chronic bronchitis Nebulizer machine and supplies Unchanged fluticasone/ umeclidinium/ vilanterol (Trelegy Ellipta 200 mcg-62.5 mcg-25 mcg/ inh inhalation powder) 1 puff(s) by inhalation Once a day at the same time every day Unchanged metoprolol (metoprolol succinate 50 mg oral TABLET extended release) 1 tab(s) by mouth Once a day Do not crush or chew (controlled release) 03/06 Unchanged omeprazole (omeprazole 40 mg oral delayed release capsule) 1 cap by mouth Once a day GERD (gastroesophageal reflux disease) 03/06 Unchanged rosuvastatin (Crestor 20 mg oral tablet) 1 tab(s) by mouth Once a day 03/06 Unchanged sacubitril-valsartan (Entresto 24 mg-26 mg oral tablet) 1 tab(s) by mouth Two (2) times a day 03/06 Unchanged traZODone (traZODone 100 mg oral tablet) 1 tab(s) by mouth Daily at bedtime Psychophysiologic insomnia 08pm 03/05 Pharmacy Information [facility]/pharmacy #[id number]: [address], [place] [id number] [phone] Please take this list to your next doctor s visit. Bring all medications you take, including over the counter medications, herbals and other supplements with you to your doctor s visit. Patients and families are reminded to discard old lists and to update any records with all medication providers or retail pharmacies. Medication Leaflets clopidogrel (kloe PID oh grel) Plavix What is the most important information I should know about clopidogrel? You should not use this medicine if you have any active bleeding such as a stomach ulcer or bleeding in the brain. Clopidogrel increases your risk of bleeding, which can be severe or life- threatening. Call your doctor or seek emergency medical attention if you have bleeding that will not stop, if you have blood in your urine, black or bloody stools, or if you cough up blood or vomit that looks like coffee grounds. Do not stop taking clopidogrel without first talking to your doctor, even if you have signs of bleeding. Stopping clopidogrel may increase your risk of a heart attack or stroke. What is clopidogrel? Clopidogrel is used to lower your risk of having a stroke, blood clot, or serious heart problem after you've had a heart attack, severe chest pain (angina), or circulation problems. Clopidogrel may also be used for purposes not listed in this medication guide. What should I discuss with my healthcare provider before taking clopidogrel? You should not use clopidogrel if you are allergic to it, or if you have: any active bleeding; or a stomach ulcer or bleeding in the brain (such as from a head injury). Tell your doctor if you have ever had: an ulcer in your stomach or intestines; or a bleeding disorder or blood clotting disorder. Clopidogrel may not work as well if you have certain genetic factors that affect the breakdown of this medicine in your body. Your doctor may perform a blood test to make sure clopidogrel is right for you. This medicine is not expected to harm an unborn baby. However, taking clopidogrel within 1 week before childbirth can cause bleeding in the mother. Tell your doctor if you are or plan to become . You should not breastfeed while using this medicine. How should I take clopidogrel? Follow all directions on your prescription label and read all medication guides or instruction sheets. Use these medicines exactly as directed. Clopidogrel can be taken with or without food. Clopidogrel is sometimes taken together with aspirin. Take aspirin only if your doctor tells you to. Clopidogrel keeps your blood from coagulating (clotting) and can make it easier for you to bleed, even from a minor injury. Contact your doctor or seek emergency medical attention if you have any bleeding that will not stop. You may need to stop using clopidogrel for a short time before a surgery, medical procedure, or dental work. Any healthcare provider who treats you should know that you are taking clopidogrel. Do not stop taking clopidogrel without first talking to your doctor, even if you have signs of bleeding. Stopping the medicine could increase your risk of a heart attack or stroke. Store at room temperature away from moisture and heat. What happens if I miss a dose? Take the medicine as soon as you can, but skip the missed dose if it is almost time for your next dose. Do not take two doses at one time. What happens if I overdose? Seek emergency medical attention or call the Poison Help line at . Overdose can causeexcessive bleeding. What should I avoid while taking clopidogrel? Avoid alcohol. It can increase your risk of stomach bleeding. Avoid activities that may increase your risk of bleeding or injury. Use extra care to prevent bleeding while shaving or brushing your teeth. If you also take aspirin: Ask a doctor or pharmacist before using medicines for pain, fever, swelling, or cold/flu symptoms. They may contain ingredients similar to aspirin (such as salicylates, ibuprofen, ketoprofen, or naproxen). Taking these products together can increase your risk of bleeding. What are the possible side effects of clopidogrel? Get emergency medical help if you have signs of an allergic reaction: hives; difficult breathing; swelling of your face, lips, tongue, or throat. Clopidogrel increases your risk of bleeding, which can be severe or life- threatening. Call your doctor or seek emergency medical attention if you have bleeding that will not stop, if you have blood in your urine, black or bloody stools, or if you cough up blood or vomit that looks like coffee grounds. Also call your doctor at once if you have: nosebleeds, pale skin, easy bruising, purple spots under your skin or in your mouth; jaundice (yellowing of your skin or eyes); fast heartbeats, shortness of breath; headache, fever, weakness, feeling tired; little or no urination; a seizure; low blood sugar--headache, hunger, sweating, irritability, dizziness, fast heart rate, and feeling anxious or shaky; or signs of a blood clot--sudden numbness or weakness, confusion, problems with vision or speech. Common side effects may include: bleeding. This is not a complete list of side effects and others may occur. Call your doctor for medical advice about side effects. You may report side effects to FDA at 4-213-KDZ-4685. What other drugs will affect clopidogrel? Sometimes it is not safe to use certain medications at the same time. Some drugs can affect your blood levels of other drugs you take, which may increase side effects or make the medications less effective. Tell your doctor about all your other medicines, especially: a stomach acid chiropractor sole practitioner such as omeprazole, Nexium, or Prilosec; an antidepressant such as citalopram, fluoxetine, sertraline, Cymbalta, Effexor, Lexapro, Pristiq, or Prozac; rifampin; a blood thinner--warfarin, Coumadin, Jantoven; or NSAIDs (nonsteroidal anti-inflammatory drugs)--aspirin, ibuprofen (Advil, Motrin), naproxen (Aleve), celecoxib, diclofenac, indomethacin, meloxicam, and others. This list is not complete. Other drugs may affect clopidogrel, including prescription and efnf-icv-zntwbun medicines, vitamins, and herbal products. Not all possible drug interactions are listed here. Where can I get more information? Your pharmacist can provide more information about clopidogrel. Remember, keep this and all other medicines out of the reach of children, never share your medicines with others, and use this medication only for the indication prescribed. Every effort has been made to ensure that the information provided by [employer] is accurate, up-to-date, and complete, but no guarantee is made to that effect. Drug information contained herein may be time sensitive. [employer] information has been compiled for use by healthcare practitioners and consumers in the [place] and therefore [employer] does not warrant that uses outside of the [place] are appropriate, unless specifically indicated otherwise. [employer] drug information does not endorse drugs, diagnose patients or recommend therapy. [facility] drug information isan informational resource designed to assist licensed healthcare practitioners in caring for their p atients and/or to serve consumers viewing this service as a supplement to, and not a substitute for, the expertise, skill, knowledge and judgment of healthcare practitioners. The absence of a warningfor a given drug or drug combination in no way should be construed to indicate that the drug or drug combination is safe, effective or appropriate for any given patient. [employer] does not assume any responsibility for any aspect of healthcare administered with the aid of information [employer] provides. The information contained herein is not intended to cover all possible uses, directions, precautions, warnings, drug interactions, allergic reactions, or adverse effects. If you have questions about the drugs you are taking, check with your doctor, nurse or pharmacist. Copyright 4853-6071 [employer]. Version: 18.01. Revision Date: 02/08/2021. Education Materials Home Oxygen Use, Adult When a medical condition keeps you from getting enough oxygen, your health care provider may instruct you to take extra oxygen at home. Your health care provider will let you know: When to take oxygen. For how long to take oxygen. How quickly oxygen should be delivered (flow rate), in liters per minute (LPM or L/M). Home oxygen can be given through: A mask. A nasal cannula. This is a device or tube that goes in the nostrils. A transtracheal catheter. This is a small, flexible tube placed in the trachea. A tracheostomy. This is a surgically made opening in the trachea. These devices are connected with tubing to an oxygen source, such as: A tank. Tanks hold oxygen in gas form. They must be replaced when the oxygen is used up. A liquid oxygen device. This holds oxygen in liquid form. It must be replaced when the oxygen is used up. An oxygen concentrator machine. This filters oxygen in the room. It uses electricity, so you must have a backup cylinder of oxygen in case the power goes out. Supplies needed: To use oxygen, you will need: A mask, nasal cannula, transtracheal catheter, or tracheostomy. An oxygen tank, a liquid oxygen device, or an oxygen concentrator. The tape that your health care provider recommends (optional). If you use a transtracheal catheter and your prescribed flow rate is 1 LPM or greater, you will also need a humidifier. Risks and complications Fire. This can happen if the oxygen is exposed to a heat source, flame, or spark. Injury to skin. This can happen if liquid oxygen touches your skin. Organ damage. This can happen if you get too little oxygen. How to use oxygen Your health care provider or a licensing representative from your coroner/medical examiner company will show you how touse your oxygen device. Follow her or his instructions. The instructions may look something like this: 1. Wash your hands. 2. If you use an oxygen concentrator, make sure it is plugged in. 3. Place one end of the tube into the port on the tank, device, or machine. 4. Place the mask over your nose and mouth. Or, place the nasal cannula and secure it with tape if instructed. If you use a tracheostomy or transtracheal catheter, connect it to the oxygen source as directed. 5. Make sure the liter-flow setting on the machine is at the level prescribed by your health care provider. 6. Turn on the machine or adjust the knob on the tank or device to the correct liter-flow setting. 7. When you are done, turn off and unplug the machine, or turn the knob to OFF. How to clean and care for the oxygen supplies Nasal cannula Clean it with a warm, wet cloth daily or as needed. Wash it with a liquid soap once a week. Rinse it thoroughly once or twice a week. Replace it every 2 4 weeks. If you have an infection, such as a cold or pneumonia, change the cannula when you get better. Mask Replace it every 2 4 weeks. If you have an infection, such as a cold or pneumonia, change the mask when you get better. Humidifier bottle Wash the bottle between each refill: ? Wash it with soap and warm water. ? Rinse it thoroughly. ? Disinfect it and its top. ? Air-dry it. Make sure it is dry before you refill it. Oxygen concentrator Clean the air filter at least twice a week according to directions from your home medical equipmentand service company. Wipe down the cabinet every day. To do this: ? Unplug the unit. ? Wipe down the cabinet with a damp cloth. ? Dry the cabinet. Other equipment Change any extra tubing every 1 3 months. Follow instructions from your health care provider about taking care of any other equipment. Safety tips Fire safety tips Keep your oxygen and oxygen supplies at least 5 ft away from sources of heat, flames, and hall atall times. Do not allow smoking near your oxygen. Put up "no smoking" signs in your home. Avoid smoking areas when in public. Do not use materials that can burn (are flammable) while you use oxygen. When you go to a restaurant with portable oxygen, ask to be seated in the nonsmoking section. Keep a fire extinguisher close by. Let your fire department know that you have oxygen in your home. Test your home smoke detectors regularly. Traveling Secure your oxygen tank in the vehicle so that it does not move around. Follow instructions from your coroner/medical examiner company about how to safely secure your tank. Make sure you have enough oxygen for the amount of time you will be away from home. If you are planning air travel, contact the airline to find out if they allow the use of an approved portable oxygen concentrator. You may also need documents from your health care provider and coroner/medical examiner company before you travel. General safety tips If you use an oxygen cylinder, make sure it is in a stand or secured to an object that will not move (fixed object). If you use liquid oxygen, make sure its container is kept upright. If you use an oxygen concentrator: ? Tell your electric company. Make sure you are given priority service in the event that your power goes out. ? Avoid using extension cords, if possible. Follow these instructions at home: Use oxygen only as told by your health care provider. Do not use alcohol or other drugs that make you relax (sedating drugs) unless instructed. They can slow down your breathing rate and make it hard to get in enough oxygen. Know how and when to order a refill of oxygen. Always keep a spare tank of oxygen. Plan ahead for holidays when you may not be able to get a prescription filled. Use water-based lubricants on your lips or nostrils. Do not use oil-based products like petroleum jelly. To prevent skin irritation on your cheeks or behind your ears, tuck some gauze under the tubing. Contact a health care provider if: You get headaches often. You have shortness of breath. You have a lasting cough. You have anxiety. You are sleepy all the time. You develop an illness that affects your breathing. You cannot exercise at your regular level. You are restless. You have difficult or irregular breathing, and it is getting worse. You have a fever. You have persistent redness under your nose. Get help right away if: You are confused. You have blue lips or fingernails. You are struggling to breathe. Summary Your health care provider or a licensing representative from your coroner/medical examiner company will show you how touse your oxygen device. Follow her or his instructions. If you use an oxygen concentrator, make sure it is plugged in. Make sure the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 12/2024. Does not appear volume overloaded. Anxiety add BuSpar 5 mg twice daily. Patient was initially reluctant to take this but then agreeable. HTN- SBP goal 140 or less. Continue home antihypertensives. History of medical noncompliance patient is not always compliant with taking her medications as prescribed. She does not use her oxygen as prescribed. Patient is high risk for recurrent admissions due to noncompliance and continued tobacco dependence. DVT prophylaxis: Code Status: DNR CCA/DNI Plan of care discussed with patient. All questions answered. Patient verbalizes understanding is agreeable to plan of care. This dictation was performed using voice recognition software and may include grammatical and/or spelling errors. Future Appointments Appointment Date:03/10/2025 04:00:00 PM Scheduled Provider: Location:[facility] Appointment Type:CT Chest (Low Dose) Screening/CT Lung (L Appointment Date:07/30/2025 10:00:00 AM Scheduled Provider:EMMA UQEEN DO Location:[facility] Appointment Type:PC OV Future Scheduled Tests Laboratory* Basic Metabolic Panel 01/11/25 * N-Terminal proBNP 01/11/25 Radiology* MRI Cardiac Morphology & Func W+W/O Cont 02/23/25 * CT Low Dose Lung Cancer Screening (LDCT) 03/10/25 [facility] 04-24-2025 HCoV 229E RNA IVANA+non-probe Ql (Nph)Not Detected *NA* (03/04/25 10:09 AM)AH [employer] [facility]/Sero [id number] Note* Exam Date Time Procedure Performing Provider Status 03/04/25 6:21 AM XR Chest 1 View CLAUDE CAMPUZANO MD; Auth (Verified) [id number] ORIGINAL EXAMINATION: ONE XRAY VIEW OF THE CHEST 03/04/2025 6:21 am COMPARISON: 02/19/2025 HISTORY: ORDERING SYSTEM PROVIDED HISTORY: Reason for Exam: dyspnea FINDINGS: Stable cardiomediastinal silhouette. No pleural effusion or pneumothorax. Radiolucencies within upper lung predominance. Interstitial prominence favors chronic. Postsurgical changes of the cervical spine. Remodeled left-sided rib deformities. IMPRESSION: No definite acute cardiopulmonary process. COPD/emphysematous changes. I have personally reviewed the images of this examination and agree with the resident's findings and interpretation. Interpreted by: Claude Campuzano MD Preliminary Report By: Krys Baltazar Electronically signed By Claude Campuzano MD Dictated Date: 03/04/2025 6:37:50 AM Prelim Date: 03/04/2025 6:39:30 AM Sign Date: 03/04/2025 6:41:45 AM Ordering Provider: EMMANUEL KILLIAN [place] [id number] Note* Exam Date Time Procedure Performing Provider Status 03/04/25 6:01 AM EKG [ED AOH] - CV EMMANUEL KILLIAN DO ; Auth (Verified) ECG Final Report Sinus rhythm Probable left atrial enlargement Probable left ventricular hypertrophy Anterior Q waves, possibly due to LVH Compared to ECG at 02/19/2025 01:15:39 BORDERLINE ECG Electronic Signature: EMMANUEL KILLIAN DO 03/04/2025 06:19:02 [place] [id number] Note. MICRO - Microbiology PROCEDURE: Blood Culture (bacterial) [*1] SOURCE: Blood BODY SITE: COLLECTED DATE/TIME: 02/19/2025 01:07 EDT RECEIVED DATE/TIME: 02/19/2025 14:04 EDT START DATE/TIME: 02/19/2025 14:04 EDT FREE TEXT SOURCE: FINAL REPORTS Final Report [] Verified Date/Time/Personnel: 02/24/2025 14:59 EDT Blood Culture: No Growth at 5 days. PRELIMINARY REPORTS Preliminary Report [] Verified Date/Time/Personnel: 02/19/2025 14:59 EDT Culture has been received in lab and is no growth to date. Routine cultures are held for 5 days. Performing Locations *1: This test was performed at: [address], [address] [place], [place] [id number] Note. MICRO - Microbiology PROCEDURE: Blood Culture (bacterial) [*1] SOURCE: Blood BODY SITE: COLLECTED DATE/TIME: 02/19/2025 01:45 EDT RECEIVED DATE/TIME: 02/19/2025 14:04 EDT START DATE/TIME: 02/19/2025 14:04 EDT FREE TEXT SOURCE: FINAL REPORTS Final Report [] Verified Date/Time/Personnel: 02/24/2025 14:59 EDT Blood Culture: No Growth at 5 days. PRELIMINARY REPORTS Preliminary Report [] Verified Date/Time/Personnel: 02/19/2025 14:59 EDT Culture has been received in lab and is no growth to date. Routine cultures are held for 5 days. Performing Locations *1: This test was performed at: [address], [address] [place], [place] [id number] Note. MICRO - Microbiology PROCEDURE: Streptococcus Pneumoniae Urine Antig [^1 *1] SOURCE: Urine BODY SITE: COLLECTED DATE/TIME: 02/19/2025 04:54 EDT RECEIVED DATE/TIME: 02/19/2025 14:18 EDT START DATE/TIME: 02/19/2025 14:18 EDT FREE TEXT SOURCE: FINAL REPORTS Final Report [] Verified Date/Time/Personnel: 02/19/2025 14:40 EDT Presumptive negative for pneumococcal pneumonia, suggesting no current or recent pneumococcal infection. Infection due to Strep pneumoniae cannot be ruled out since the antigen present in the sample may be below the detection limit of the test. Interpretive Data ^1: Streptococcus Pneumoniae Urine Antig This test has not been evaluated on patients taking antibiotics for greater than 24 hours or on patients who have recently completed an antibiotic regimen. The accuracy of this test has not been proven in young children. Performing Locations *1: This test was performed at: [address], [address] [place], [place] [id number] Note. MICRO - Microbiology PROCEDURE: Legionella Urine Ag [*1] SOURCE: Urine BODY SITE: COLLECTED DATE/TIME: 02/19/2025 04:54 EDT RECEIVED DATE/TIME: 02/19/2025 14:18 EDT START DATE/TIME: 02/19/2025 14:18 EDT FREE TEXT SOURCE: FINAL REPORTS Final Report [] Verified Date/Time/Personnel: 02/19/2025 14:40 EDT Presumptive negative for L. pneumophila serogroup 1 antigen in urine, suggesting no recent or current infection. Legionnaire's disease cannot be ruled out since other serogroups and species may also cause disease. Performing Locations *1: This test was performed at: [address], [address] [place], [place] [id number] Hospital Discharge instructions Patient Education 12/14/2024 09:07:49 3- Heart Cath/PCI radial (08/2018) (CUSTOM) HEART CATHETERIZATION/PCI (radial) Discharge Instructions DIET Drink plenty of fluids for the next 48 hours to help your kidneys flush the heart cath dye out of your system ACTIVITY For the next 48 hours: Do not deep bend the wrist Do not lift, push, or pull anything over 5 pounds for 5 days Do not use the hand/arm to support your weight when rising from a chair or bed Do not drive For the next 7 days: Do not submerse your procedure site in water Do not swim, wash dishes, or take tub baths You may write, eat, type, and shower WOUND CARE Keep arm board adn dressing on your procedure site for the next24 hours and change to a band-aid for 3-4 days Change the Band-Aid daily or if it gets wet/soiled AFTER YOU GO HOME, CALL YOUR DOCTOR FOR: Any increase in bruising or tenderness from the procedure site Any redness, pus, or other signs of infection at the site A temperature above 100.5 Severe pain at the site DIAL 911 AND RETURN TO THE HOSPITAL FOR: Any bleeding from the procedure site. The site may be bruised or tender, but it should not be bleeding at any time. If your site begins to bleed, hold firm pressure on it and dial 911 to return to the hospital Any increase in swelling at the procedure site. An increase in swelling could mean the area is bleeding under the skin. Hold firm pressure to the site and dial 911 to return to the hospital Document Released: 10/28/2006 Document Revised: 10/14/2013 Document Reviewed: 10/29/2014 ExitCare Patient Information 2015 [email or web address]. This information is not intended to replace advicegiven to you by your health care provider. Make sure you discuss any questions you have with your health care provider. 12/14/2024 09:06:46 Moderate Conscious Sedation, Adult, Care After Moderate Conscious Sedation, Adult, Care After These instructions provide you with information about caring for yourself after your procedure. Your health care provider may also give you more specific instructions. Your treatment has been plannedaccording to current medical practices, but problems sometimes occur. Call your health care provider if you have any problems or questions after your procedure. What can I expect after the procedure? After your procedure, it is common: To feel sleepy for several hours. To feel clumsy and have poor balance for several hours. To have poor judgment for several hours. To vomit if you eat too soon. Follow these instructions at home: For at least 24 hours after the procedure: Do not: ?Participate in activities where you could fall or become injured. ?Drive. ?Use heavy machinery. ?Drink alcohol. ?Take sleeping pills or medicines that cause drowsiness. ?Make important decisions or sign legal documents. ?Take care of children on your own. Rest. Eating and drinking Follow the diet recommended by your health care provider. If you vomit: ?Drink water, juice, or soup when you can drink without vomiting. ?Make sure you have little or no nausea before eating solid foods. General instructions Have a responsible adult stay with you until you are awake and alert. Take [id number] and prescription medicines only as told by your health care provider. If you smoke, do not smoke without supervision. Keep all follow-up visits as told by your health care provider. This is important. Contact a health care provider if: You keep feeling nauseous or you keep vomiting. You feel light-headed. You develop a rash. You have a fever. Get help right away if: You have trouble breathing. This information is not intended to replace advice given to you by your health care provider. Make sure you discuss any questions you have with your health care provider. Document Released: 08/18/2014 Document Revised: 10/10/2018 Document Reviewed: 02/16/2017 [employer] Patient Education 2020 [employer] Follow Up Care 11/30/2024 10:45:53 With:XAVIER GONZALEZ MD Address: [address] [place] [address] [address] [place] [address] [id number] When:01/18/2025 10:00:00 [facility] 02-03-2025 Summary of episode note Discharge Instructions Thank you for allowing [facility] to assist you with your healthcare needs. The following is importantdischarge information regarding your hospital visit. Your Care Team EMMA QUEEN DO What to do next Scheduled Follow-Up Appointments Appointment Type When With Where Contact Information StatusEcho - Echocardiogram Adult 12/18/2024 02:00 PM EST [facility] [phone] Confirmed CV OV 01/18/2025 10:00 AM EDT [facility] Confirmed PC OV 01/21/2025 02:00 PM EDT EMMA QUEEN DO [address] [phone] Confirmed Follow Up Appointments Follow Up with XAVIER GONZALEZ MD When:01/18/2025 10:00 AM EDT Where:[address] [place] [address] [address] [place] [address] [id number] The Following Activity and Diet Have Been Ordered for You Discharge Activity - Ordered -- NO activity restrictions, 12/14/24 9:05:00 EST Discharge Diet - Ordered -- No changes were made to your diet during your hospital stay. Please resume your pre hospitalization diet on discharge., 12/14/24 9:05:00 EST Allergies NKA Medications Please ask your primary doctor or pharmacist before taking any other medication not listed, including over the counter drugs, herbal medications, vitamins and or supplements as they may interact withyour home medications. What How Much When Why Instructions Last Dose Unchanged albuterol (albuterol MDI (90 mcg/ inh) CFC free inhalation aerosol) 2 puff(s) by inhalation Four (4) times a day as needed for as needed for wheezing COPD with chronic bronchitis Unchanged amLODIPine (amLODIPine 5 mg oral tablet) 1 tab(s) by mouth Once a day Unchanged aspirin (aspirin 81 mg oral tablet, chewable) 81 Milligram Chewed Once a day Stented coronary artery CAD in [place] artery Unchanged clopidogrel (clopidogrel 75 mg oral tablet) 1 tab(s) by mouth Every day Unchanged lisinopril (lisinopril 40 mg oral tablet) 1 tab(s) by mouth Once a day Hypertension Unchanged metoprolol (metoprolol succinate 50 mg oral TABLET extended release) 1 tab(s) by mouth Once a day Do not crush or chew (controlled release) Unchanged omeprazole (omeprazole 40 mg oral delayed release capsule) 1 cap by mouth Once a day GERD (gastroesophageal reflux disease) Unchanged rosuvastatin (Crestor 20 mg oral tablet) 1 tab(s) by mouth Once a day Unchanged traZODone (traZODone 100 mg oral tablet) 1 tab(s) by mouth Daily at bedtime Psychophysiologic insomnia Please take this list to your next doctor s visit. Bring all medications you take, including over the counter medications, herbals and other supplements with you to your doctor s visit. Patients and families are reminded to discard old lists and to update any records with all medication providers or retail pharmacies. Education Materials HEART CATHETERIZATION/PCI (radial) Discharge Instructions DIET Drink plenty of fluids for the next 48 hours to help your kidneys flush the heart cath dye out of your system ACTIVITY For the next 48 hours: Do not deep bend the wrist Do not lift, push, or pull anything over 5 pounds for 5 days Do not use the hand/arm to support your weight when rising from a chair or bed Do not drive For the next 7 days: Do not submerse your procedure site in water Do not swim, wash dishes, or take tub baths You may write, eat, type, and shower WOUND CARE Keep arm board adn dressing on your procedure site for the next24 hours and change to a band-aid for 3-4 days Change the Band-Aid daily or if it gets wet/soiled AFTER YOU GO HOME, CALL YOUR DOCTOR FOR: Any increase in bruising or tenderness from the procedure site Any redness, pus, or other signs of infection at the site A temperature above 100.5 Severe pain at the site DIAL 911 AND RETURN TO THE HOSPITAL FOR: Any bleeding from the procedure site. The site may be bruised or tender, but it should not be bleeding at any time. If your site begins to bleed, hold firm pressure on it and dial 911 to return to the hospital Any increase in swelling at the procedure site. An increase in swelling could mean the area is bleeding under the skin. Hold firm pressure to the site and dial 911 to return to the hospital Document Released: 10/28/2006 Document Revised: 10/14/2013 Document Reviewed: 10/29/2014 ExitCare Patient Information 2015 [email or web address]. This information is not intended to replace advicegiven to you by your health care provider. Make sure you discuss any questions you have with your health care provider. Moderate Conscious Sedation, Adult, Care After These instructions provide you with information about caring for yourself after your procedure. Your health care provider may also give you more specific instructions. Your treatment has been plannedaccording to current medical practices, but problems sometimes occur. Call your health care provider if you have any problems or questions after your procedure. What can I expect after the procedure? After your procedure, it is common: To feel sleepy for several hours. To feel clumsy and have poor balance for several hours. To have poor judgment for several hours. To vomit if you eat too soon. Follow these instructions at home: For at least 24 hours after the procedure: Do not: ? Participate in activities where you could fall or become injured. ? Drive. ? Use heavy machinery. ? Drink alcohol. ? Take sleeping pills or medicines that cause drowsiness. ? Make important decisions or sign legal documents. ? Take care of children on your own. Rest. Eating and drinking Follow the diet recommended by your health care provider. If you vomit: ? Drink water, juice, or soup when you can drink without vomiting. ? Make sure you have little or no nausea before eating solid foods. General instructions Have a responsible adult stay with you until you are awake and alert. Take dvqf-whz-ntluflu and prescription medicines only as told by your health care provider. If you smoke, do not smoke without supervision. Keep all follow-up visits as told by your health care provider. This is important. Contact a health care provider if: You keep feeling nauseous or you keep vomiting. You feel light-headed. You develop a rash. You have a fever. Get help right away if: You have trouble breathing. This information is not intended to replace advice given to you by your health care provider. Make sure you discuss any questions you have with your health care provider. Document Released: 08/18/2014 Document Revised: 10/10/2018 Document Reviewed: 02/16/2017 [employer] Patient Education 2020 [employer] Additional Information VACCINATE! IT SAVES LIVES! Members of the community who have not yet received the COVID-19 vaccine and would like to receive it can visit one of [facility] vaccine clinics. There are many vaccine clinic locations within the [facility]. For locations and available times, please visit [email or web address].[email or web address] It is important to note that some COVID mobile vaccine clinics are held outdoors and may be canceled in rainy or stormy conditions. To learn more about pediatric vaccinations (ages 5-11), we invite you to visit the [facility] webpage. [email or web address] learn more about the COVID-19 vaccine, we invite you to visit the CDC website for a list of frequently asked questions.https://www.cdc.gov/coronavirus/2019-ncov/vaccines/faq.html [employer] Patient Portal Access Instructions: Stay connected with your healthcare team and access your personal medical information anytime with the [employer] Patient Portal. Please follow the directions below to create your [employer] account: 1.Access the email account you provided upon registration to the hospital/physician office.2.Look for an invitation email from [facility].3.Open the email and access the invitation link: AcceptInvitation to [employer].4.Fill in the required randle to create your account. To access your account, visit [email or web address]. Click the blue button labeled "Access Patient Portal" and then log in with the username and password that you created in the steps above. You will be able to view your test results, lab results, a summary of your visits, upcoming appointments and more. There is also a convenient messaging option where you can send secure messages to your p rovider. In addition, you will have the ability to download any documents or summaries to your computer and/or send the information securely to a physician. Remember that your healthcare information is confidential, so carefully consider who you will allowto register on the [facility] Patient Portal for access to your information. You can also access the [facility] Patient Portal on the [facility] larissa. Simply click on "Patient Portal" and then log into your account. If you would like to receive a full copy of your medical records, please contact the [facility] Medical Records Department by calling [phone], Saturday through Saturday between 8 a.m. and 4:30 p.m. HOW TO SAFELY DISPOSE OF PRESCRIPTION MEDICATIONS Please use one of the following methods to safely dispose of your unused medications. 1.Use a drug disposal kit: the drug disposal pouch allows you to safely discard your old and unuseddrugs. Ask your nurse to give you one when you are discharged.2.Visit a local take-back location: Many local pharmacies and police departments have programs that collect old and unwanted prescriptiondrugs. Call your local pharmacy or go to http://nTAG Interactive.Pluto.TV/3O2Pa2y to find one close to you.3.Make use of household items: Use cat litter or old coffee grounds to dispose medications if other options arenot available. Mix your drugs with these household products, seal them in an airtight container andthrow it into the garbage. Call [facility]: [phone] to be sure your drugs can be disposed of in this way. Some medicines may require a different approach.4.Never flush your medications down the toilet. IF YOU HAVE BEEN PRESCRIBED AN OPIOID FOR PAIN If you have been prescribed [...] have withdrawal symptoms when a medication is stopped, can develop within a few days. KNOW [...] children, family, friends and visitors). The last page of this document has been signed and retained as a CHART COPY. Signatures Patient Education Materials 3- Heart Cath/PCI radial (08/2018) (CUSTOM) Moderate Conscious Sedation, Adult, Care After Medication Leaflets My discharge plan and instructions have been reviewed and explained to me and I,STEVEN KOENIG understand my current condition and have read and understand these discharge instructions. I have received a written copy of the plan/instructions. If I have questions, I am aware that I should contact my doctor. 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 Patient is to be discharged home later today. Allergies NKA Consults No qualifying data available. Objective Vitals and Measurements T: 36.6 C (Oral) HR: 77 RR: 16 BP: 122/82 SpO2: 93% HT: 162.6 cm WT: 50.9 kg Weight Dosing Weight: 50.9 kg (12/14/24) Code Status No qualifying data available. Admission Date 12/14/2024 Discharge Date 12/14/2024 Medications Unchanged albuterol (albuterol MDI (90 mcg/inh) CFC free inhalation aerosol)2 puff(s) by inhalation four (4) times a day as needed as needed for wheezing. Refills: 11. amLODIPine (amLODIPine 5 mg oral tablet)1 tab(s) by mouth once a day. Refills: 11. aspirin (aspirin 81 mg oral tablet, chewable)81 Milligram Chewed once a day. Refills: 3. clopidogrel (clopidogrel 75 mg oral tablet)1 tab(s) by mouth every day. Refills: 3. lisinopril (lisinopril 40 mg oral tablet)1 tab(s) by mouth once a day. Refills: 3. metoprolol (metoprolol succinate 50 mg oral TABLET extended release)1 tab(s) by mouth once a day. Do not crush or chew (controlled release). Refills: 11. omeprazole (omeprazole 40 mg oral delayed release capsule)1 cap by mouth once a day. Refills: 3. rosuvastatin (Crestor 20 mg oral tablet)1 tab(s) by mouth once a day. Refills: 11. traZODone (traZODone 100 mg oral tablet)1 tab(s) by mouth daily at bedtime. Refills: 3. Follow Up Appointments No qualifying data available. Follow Up Labs/Studies Discharge Labs No Follow-up Labs Discharge Studies No Follow-up Studies Discharge Diet No qualifying data available. Discharge Activity No qualifying data available. Readmission Risk/Palliative Score No qualifying data available. Digitally Signed by RAYMOND RAMOS MD on 12/14/2024 08:44 AM Digitally Signed by MILO MAJOR MD [facility] [id number] Miscellaneous Notes* Telephone Encounter - Nena Dozier RN - 01/24/2024 2:16 PM EDT Patient calls to ask if provider would be willing to call in one more albuterol inhaler until seen by PCP in [facility]. Appointment to establish care is 01/31/2024 but inhaler is completely out and patient is having trouble with wheezing/sob. Pended. Patient requests call back at [phone]. Nena Dozier RN documented in this encounterT[facility]02-13-2024 Miscellaneous Notes* Telephone Encounter - Christina Greco LPN - 12/24/2023 9:41 AM EST Spoke with pt and she reports she is going to stay in [place] and will be getting an apt scheduled with Dr.Jacqueline Beaver. Does not have an apt yet Pt has been waiting for her insurance to start at the beginning of the month. Christina Greco LPN * Telephone Encounter - Oly Durbin APRN.CNP - 12/24/2023 9:03 AM EST Patient was advised in September that she needed to find new PCP in [place] if she was going to remain there. I will send one more 90 day supply. If she is returning to this area then she will need toschedule a follow-up appointment in this office Oly Durbin APRN.LINDA * Telephone Encounter - Irena Cantor LPN - 12/24/2023 8:32 AM EST Patient has been identified by name and date of : Yes Patient phones for refill(s): Requested Prescriptions Pending Prescriptions Disp Refills albuterol HFA (VENTOLIN HFA) 90 mcg/actuation inhaler 80 g 0 Sig: Inhale 2 Puffs as instructed every 6 hours as needed for wheezing/shortness of breath. amLODIPine (NORVASC) 10 mg tablet 90 tablet 0 Sig: Take 1 tablet by mouth once daily. aspirin 81 mg chewable tablet 90 tablet 3 Sig: Take 1 tablet by mouth once daily. lisinopril (ZESTRIL) 40 mg tablet 90 tablet 0 Sig: Take 1 tablet by mouth once daily. omeprazole (PRILOSEC) 40 mg capsule 90 capsule 0 Sig: Take 1 capsule by mouth once daily. traZODone (DESYREL) 100 mg tablet 180 tablet 0 Sig: Take 2 tablets by mouth daily at bedtime. Date of last office visit in primary care: 10/19/2021 Date of next office visit in primary care: Visit date not found Please advise. Thank you. Irena Cantor LPN. documented in this encounterTol[facility]12-08-2023 Miscellaneous Notes* Telephone Encounter - Ranulfo Blackman Ma - 10/18/2023 1:40 PM EST MURTAZA: 05/10/2023 Last refill: 09/25/2023 QTY: 80g Refills: 1 * Telephone Encounter - Telma Hdez - 10/18/2023 12:18 PM EST Patient has been identified by name and date of : Yes Requested Prescriptions Pending Prescriptions Disp Refills albuterol HFA (VENTOLIN HFA) 90 mcg/actuation inhaler 80 g 1 Sig: Inhale 2 Puffs as instructed every 6 hours as needed for wheezing/shortness of breath. RX INSTRUCTIONS: Patient aware RX will be sent to pharmacy. No need to notify patient. Telma Austin documented in this encounterToledo Hospital11-16-2023 Miscellaneous Notes* Telephone Encounter - Sal Lee LPN - 09/26/2023 8:08 AM EST Pt notified of pcp's message. Pt states she will be coming back to [place]. Is just in [place] for a few months to help out her son. Sal Lee LPN * Telephone Encounter - Ulises Hermosillo MD - 09/25/2023 5:11 PM EST All appointments here are cancelled. If she has relocated, update demographics. I recommend she look for primary care there for continuation of care. 3 month supply of medications sent. Patient's request for medication is as follows Requested Prescriptions Signed Prescriptions Disp Refills albuterol HFA (VENTOLIN HFA) 90 mcg/actuation inhaler 80 g 1 Sig: Inhale 2 Puffs as instructed every 6 hours as needed for wheezing/shortness of breath. Authorizing Provider: ULISES HERMOSILLO amLODIPine (NORVASC) 10 mg tablet 90 tablet 0 Sig: Take 1 tablet by mouth once daily. Authorizing Provider: ULISES HERMOSILLO rosuvastatin (CRESTOR) 5 mg tablet 90 tablet 0 Sig: Take 1 tablet by mouth daily at bedtime. Authorizing Provider: ULIESS HERMOSILLO lisinopril (ZESTRIL) 40 mg tablet 90 tablet 0 Sig: Take 1 tablet by mouth once daily. Authorizing Provider: ULISES HERMOSILLO omeprazole (PRILOSEC) 40 mg capsule 90 capsule 0 Sig: Take 1 capsule by mouth once daily. Authorizing Provider: ULISES HERMOSILLO traZODone (DESYREL) 100 mg tablet 180 tablet 0 Sig: Take 2 tablets by mouth daily at bedtime. Authorizing Provider: ULISES HERMOSILLO carvedilol (COREG) 6.25 mg tablet 180 tablet 0 Sig: Take 1 tablet by mouth two times a day. Authorizing Provider: ULISES HERMOSILLO isosorbide mononitrate ER (IMDUR) 30 mg 24 hr tablet 90 tablet 0 Sig: Take 1 tablet by mouth once daily. Authorizing Provider: ULISES HERMOSILLO Order entered - please phone pharmacy and notify patient. Ulises Hermosillo MD * Telephone Encounter - Nena Dozier RN - 09/25/2023 3:13 PM EST Patient calls to report that she is currently in [place] and will be there for the next several months. Patient is going to run out of medication and is unable to transfer prescriptions. Patient asking if provider would send prescriptions to [facility] pharmacy in [place]. Pended 90 day request for review. Nena Dozier RN documented in this encounterToledo Hospital09-08-2023 NotePatient Outreach (NETNAV) STEVEN KOENIG ([id number]) 1955 F Date Time Provider Department 07/19/23 MELISSA VITAL During your visit today, we recorded the following information about you: Melissa Vital MA 07/19/2023 3:08 PM Addendum POPULATION HEALTH NAVIGATION OUTREACH Action/ Spoke with patient. Patient declined scheduling annual wellness exam/htn appointment. Patient states in [place] right now. Patient reminded of flu shot due Per 05/08/23 ANESTHESIOLOGY FACULTY office note return in about 6 months (around 11/07/23) for medicare wellness exam. Patient Identified by Name and : YES, via phone Outreach Outcome/Action Spoke to patient / parent / legal guardian: Patient declined Did you use a PCP flex slot to schedule this appointment? N/A Reason for Outreach Care Gap or Scheduling/Wellness visits Payer: Payor: [employer] AND [employer] / Plan: [employer] HMO / Product Type: HMO / Care Gap Reviewed:: Annual Wellness visit Controlling Blood Pressure Flu Vaccine Reminder: Reminder note to check Health Maintenance for items below Health Maintenance items due: BONE DENSITY Never done BP CONTROLLED (<130/80) due on 01/06/2021 INFLUENZA(1) due on 07/12/2023 Navigation Signature: Melissa Vital MA July 19, 2023 10:53 AM Allergies As of Date: 07/19/2023 (No Known Allergies) Date Reviewed: 05/09/2023 Reviewed by: Mely Griffin PA-C - Fully Assessed Reason for Visit: Population Health Navigation Outreach [3910] Cmt: Navigator [facility] outreach Prescriptions as of 07/19/2023 - aspirin 81 mg chewable tablet Take 1 tablet by mouth once daily. - lisinopril (ZESTRIL) 40 mg tablet Take 1 tablet by mouth once daily. - traZODone (DESYREL) 100 mg tablet Take 2 tablets by mouth daily at bedtime. - amLODIPine (NORVASC) 10 mg tablet TAKE 1 TABLET BY MOUTH EVERY DAY - rosuvastatin (CRESTOR) 5 mg tablet Take 1 tablet by mouth daily at bedtime. - isosorbide mononitrate ER (IMDUR) 30 mg 24 hr tablet TAKE 1 TABLET BY MOUTH EVERY DAY - uprojjlwvpc-latantmpt-cggavjaw (TRELEGY ELLIPTA) 200-62.5-25 mcg inhalation powder Inhale 1 Puff as instructed once daily. - venlafaxine ER (EFFEXOR XR) 150 mg 24 hr capsule Take 1 capsule by mouth once daily. Take with 75 mg capsule to =225 mg - carvedilol (COREG) 6.25 mg tablet Take 1 tablet by mouth twice daily. - venlafaxine ER (EFFEXOR XR) 75 mg 24 hr capsule Take 1 capsule by mouth once daily. Take with 150 mg capsule to =150 mg - albuterol HFA (VENTOLIN HFA) 90 mcg/actuation inhaler Inhale 2 Puffs as instructed every 6 hours as needed for wheezing/shortness of breath. - omeprazole (PRILOSEC) 40 mg capsule Take 1 capsule by mouth once daily. Problem List As Of Date 07/19/2023 Noted Resolved Essential hypertension [I10] 12/14/2015 Recurrent major depression in partial remission*12/14/2015 Anxiety [F41.9] 12/14/2015 01/06/2021 Bipolar affective disorder, currently active (H*01/18/2016 History of alcohol abuse [F10.11] 01/18/2016 Chronic bronchitis (HCC) [J42] 07/26/2016 Hyperkalemia [E87.5] 07/27/2016 11/27/2018 Polycythemia [D75.1] 07/27/2016 11/27/2018 Spinal stenosis, lumbar region without neurogen*12/01/2018 Radiculopathy, lumbar region [M54.16] 12/01/2018 Smoker [F17.200] 03/13/2019 GERD (gastroesophageal reflux disease) [K21.9] 03/13/2019 Primary osteoarthritis of right hip [M16.11] 03/13/2019 10/06/2019 History of total right hip arthroplasty [Z96.64*03/25/2019 07/07/2020 Seasonal allergies [J30.2] 05/04/2019 Preop cardiovascular exam [Z01.810] 09/28/2019 10/06/2019 Precordial pain, short lived, 3-5 minutes, none*09/28/2019 07/07/2020 PAD (peripheral artery disease) ([facility]) [I73.9] 09/28/2019 Anxiety and depression [F41.9, F32.A] 10/06/2019 Hypomagnesemia [E83.42] 10/22/2019 10/23/2019 Asthma [J45.909] 07/07/2020 07/07/2020 Prediabetes [R73.03] 02/04/2021 Chest pain [R07.9] 05/08/2021 Other chest pain [R07.89] 05/08/2021 Stenosis of carotid artery [I65.29] 05/08/2021 Mixed hyperlipidemia [E78.2] 05/08/2021 Abnormal stress test [R94.39] 08/26/2021 Dyspnea on exertion [R06.09] 08/26/2021 Coronary artery disease involving [place]*09/27/2021 Lung nodule [R91.1] 08/31/2022 History of hemoptysis [Z87.898] 11/20/2022 Encounter Status:Closed by MELISSA VITAL on 07/19/23[facility] 07-19-2023 NoteHNO ID: [id number] Author: Melissa Vital MA Service: ? Author Type: Repair Armature Winder Type: Progress Notes Filed: 07/19/2023 3:08 PM Note Text: POPULATION HEALTH NAVIGATION OUTREACH Action/FYI Spoke with patient. Patient declined scheduling annual wellness exam/htn appointment. Patient states in [place] right now. Patient reminded of flu shot due Per 05/08/23 ANESTHESIOLOGY FACULTY office note return in about 6 months (around 11/07/23) for medicare wellness exam. Patient Identified by Name and : YES, via phone Outreach Outcome/Action Spoke to patient / parent / legal guardian: Patient declined Did you use a PCP flex slot to schedule this appointment? N/A Reason for Outreach Care Gap or Scheduling/Wellness visits Payer: Payor: [employer] AND [employer] / Plan: [employer] HMO / Product Type: HMO / Care Gap Reviewed:: Annual Wellness visit Controlling Blood Pressure Flu Vaccine Reminder: Reminder note to check Health Maintenance for items below Health Maintenance items due: BONE DENSITY Never done BP CONTROLLED (<130/80) due on 01/06/2021 INFLUENZA(1) due on 07/12/2023 Navigation Signature: Melissa Vital MA July 19, 2023 10:53 [facility]08-03-2023 Miscellaneous Notes* Telephone Encounter - Elizabeth Ly Ma - 06/13/2023 4:23 PM EDT Patient contacted via telephone regarding upcoming NEW patient appointment with Dr. Harris on 06/14/23. Patient informed of the following: [facility] is [facility] calling regarding your upcoming appointment with Dr. Harris. To avoid a delay in your care, please bring any radiology images that have been done [facility] on a disk to be viewed at your appointment. Dr. Harris is an Interventional Pain Management provider specializing in the Spine. Please be aware that this appointment is a consult only and narcotics will NOT be prescribed. He treats with physicaltherapy, injections of the spine or joints, and non-narcotic medications. Dr. Harris will not take over and manage any medications that are already being prescribed by another provider. Dr. Harris does not fill disability or any other insurance-related forms/documentation" Patient states she will be leaving for out of state in 2 days. I informed her that Dr. Harris is booking out until early July for the injection. Patient requests to cancel this appointment Appointment canceled. documented in this encounterToledo Hospital08-03-2023 Miscellaneous Notes* Telephone Encounter - Irena Cantor LPN - 06/13/2023 9:31 AM EDT Patient notified, verbalized understanding. Irena Cantor LPN * Telephone Encounter - Ulises Hermosillo MD - 06/13/2023 1:58 AM EDT She is on Crestor 5 mg daily which replaced Lipitor. * Telephone Encounter - Cailin Valadez - 06/10/2023 10:02 AM EDT Patient called to refill her atorvastatin. It is noted as discontinued in her chart. She is confused about what she is supposed to be taking. She is leaving for vacation in 2 days and wants to make sure what meds she is to be taking. Please call her at [phone]. documented in this encounterToledo Hospital07-31-2023 Miscellaneous Notes* Telephone Encounter - Ranulfo Blackman Ma - 06/10/2023 10:46 AM EDT MURTAZA: 05/08/2023 * Telephone Encounter - Cailin Valadez - 06/10/2023 10:01 AM EDT Patient said she is leaving on vacation in 2 days and would like to pick these up before she leaves. * Telephone Encounter - Cailin Valadez - 06/10/2023 10:00 AM EDT Patient has been identified by name and date of : Yes Requested Prescriptions Pending Prescriptions Disp Refills aspirin 81 mg chewable tablet 90 tablet 3 Sig: Take 1 tablet by mouth once daily. lisinopril (ZESTRIL) 40 mg tablet 90 tablet 1 Sig: Take 1 tablet by mouth once daily. traZODone (DESYREL) 100 mg tablet 60 tablet 5 Sig: Take 2 tablets by mouth daily at bedtime. RX INSTRUCTIONS: Patient aware RX will be sent to pharmacy. No need to notify patient. Cailin Austin documented in this encounterToledo Hospital07-28-2023 Miscellaneous Notes* Telephone Encounter - Jenn Almaraz, RN - 06/07/2023 8:18 AM EDT Pharmacy electronically requests the following refill(s) Requested Prescriptions Pending Prescriptions Disp Refills amLODIPine (NORVASC) 10 mg tablet [Pharmacy Med Name: AMLODIPINE BESYLATE 10 MG TAB] 90 tablet 3 Sig: TAKE 1 TABLET BY MOUTH EVERY DAY Jenn Almaraz, RN documented in this encounterToledo Hospital06-30-2023 Miscellaneous Notes* Telephone Encounter - Hyacinth Suero LPN - 05/10/2023 2:59 PM EDT Spoke with pt gave information provided. P[t voices understanding. Will try cholesterol med uses [facility] in [place]. Please assist in scheduling with physical therapy and pain management. * Telephone Encounter - Ranulfo Blackman Ma - 05/10/2023 1:58 PM EDT Left message to call office. 05/10/2023 1:58 PM * Telephone Encounter - Oly Smith APRN.CNP - 05/10/2023 1:09 PM EDT Lipids are not well controlled. Recommend treatment with a statin. It looks like she did not tolerate atorvastatin in the past, recommend Crestor which has less incidence of side effects. Potassium slightly elevated, needs rechecked in a couple weeks. The rest of her labs were okay. X-ray showing arthritis in the spine but otherwise okay. Recommend PT, could also consider referral to pain management. Oly Smith APRN.CNP * Telephone Encounter - Christina Franco RN - 05/10/2023 12:59 PM EDT Patient calling and asking about lab results as well as x ray results to back. Please review and advise, Christina Franco RN documented in this encounterToledo Hospital06-29-2023 NoteHNO ID: [id number] Author: Mely Griffin PA-C Service: ? Author Type: Physician Panel Flow Machine Operator Type: Progress Notes Filed: 05/09/2023 2:05 PM Note Text: Patient: Steven Koenig PCP: Ulises Hermosillo MD CC: COPD HPI: Steven Koenig 67 year old female current heavy smoker, over 100 pack years with PMH significant for bipolar affective disorder, h/o alcohol abuse, GERD, PAD, HLD, CAD s/p stent, severe COPD (FEV1 0.83 L 36%), and oxygen dependence. Most recent office visit 11/26/[address] Asher at which time patient had episodes of hemoptysis most likely related to acute exacerbation with COPD with bronchitis. CXR unremarkable. Current therapy consists of Trelegy Ellipta and as needed Albuterol. Today, patient states that she does not think Trelegy is very helpful. Daily cough with clear sputum. Describes as thick and difficult to expel. No hemoptysis. Frequent wheezing. Exertional dyspnea with minimal effort. Gets SOB with talking, climbing stairs, carrying groceries. No lower extremity edema. No fever, chills or nights sweats. Reported unintentional weight loss 7-10 pounds over the last couple years. Currently smoking 1 ppd. Has never quit smoking. States she has tried Chantix and Nicotine patches without success. PAST MEDICAL HISTORY Diagnosis Date Acute pancreatitis 2010 Anisha Cruz Alcohol use disorder 01/18/2016 Dr. Angie Jones, [facility] Anxiety 12/14/2015 Bipolar affective disorder, currently active ([facility]) 01/18/2016 Dr. Angie Jones, [facility] Chronic bronchitis ([facility]) 07/26/2016 Closed skull fracture ([facility]) 1994 [facility], [facility] Coronary artery disease DDD (degenerative disc disease), cervical Endometriosis 2007 Essential hypertension 12/14/2015 GERD (gastroesophageal reflux disease) 03/13/2019 History of colon polyps History of gastric ulcer 12/14/2015 HLD (hyperlipidemia) Injury of left facial nerve 1994 PAD (peripheral artery disease) ([facility]) 09/28/2019 Recurrent major depression in partial remission ([facility]) 12/14/2015 S/P drug eluting coronary stent placement 08/25/2021 LAD and Dg2 Spinal stenosis Allergies: No Known Allergies isosorbide mononitrate ER (IMDUR) 30 mg 24 hr tablet TAKE 1 TABLET BY MOUTH EVERY DAY traZODone (DESYREL) 100 mg tablet Take 2 tablets by mouth daily at bedtime. vsdlvoylbih-cewbfjdug-rlemeamz (TRELEGY ELLIPTA) 200-62.5-25 mcg inhalation powder Inhale 1 Puff as instructed once daily. venlafaxine ER (EFFEXOR XR) 150 mg 24 hr capsule Take 1 capsule by mouth once daily. Take with 75 mg capsule to =225 mg carvedilol (COREG) 6.25 mg tablet Take 1 tablet by mouth twice daily. lisinopril (ZESTRIL, PRINIVIL) 40 mg tablet Take 1 tablet by mouth once daily. venlafaxine ER (EFFEXOR XR) 75 mg 24 hr capsule Take 1 capsule by mouth once daily. Take with 150 mg capsule to =150 mg albuterol HFA (VENTOLIN HFA) 90 mcg/actuation inhaler Inhale 2 Puffs as instructed every 6 hours as needed for wheezing/shortness of breath. amLODIPine (NORVASC) 10 mg tablet TAKE 1 TABLET BY MOUTH EVERY DAY omeprazole (PRILOSEC) 40 mg capsule Take 1 capsule by mouth once daily. aspirin 81 mg chewable tablet Take 1 [...] Substance Use Topics Alcohol use: Not Currently Alcohol/week: 60.0 standard drinks Types: 60 Standard drinks or equivalent per week Comment: Quit drinking in 2020 Drug use: No Family History Problem Relation Age of Onset Cancer Mother [...] disc surgery x 3 STENT PLACEMENT 08/25/2021 RODNYE LAD AND Dg2 TEAEC W/WO PATCH GRAFT DEEP PROFUNDA FEMORAL Right 10/20/2019 patch angioplasty, Right iliac stent TONSILLECTOMY PRIMARY/SECONDARY Tonsillectomy TOTAL ABDOMINAL HYSTERECT W/WO RMVL TUBE OVARY 1979 Hysterectomy, MAURA TOTAL FACIAL NERVE DECOMPRESSION AND/REPAIR Left 1989 [facility] I reviewed the past medical history, family history, social history and surgical history with changes noted above and updated in EMR. IMMUNIZATIONS Prevnar - 05/11/2022 Pneumovax - 04/21/2018, 09/13/2011 Influenza - 08/31/2022 CO (more content not included)...[facility]06-29-2023 History of Present illness Narrative* Mely Griffin PA-C - 05/09/2023 1:38 PM EDT Images from the original note were not included. Patient: Steven Koenig PCP: Ulises Hermosillo MD CC: COPD HPI: Steven Koenig 67 year old female current heavy smoker, over 100 pack years with PMH significant for bipolar affective disorder, h/o alcohol abuse, GERD, PAD, HLD, CAD s/p stent, severe COPD (FEV1 0.83 L 36%), and oxygen dependence. Most recent office visit 11/26/[address] Asher at which time patient had episodes of hemoptysis most likely related to acute exacerbation with COPD with bronchitis. CXR unremarkable. Current therapy consists of Trelegy Ellipta and as needed Albuterol. Today, patient states that she does not think Trelegy is very helpful. Daily cough with clear sputum. Describes as thick and difficult to expel. No hemoptysis. Frequent wheezing. Exertional dyspnea with minimal effort. Gets SOB with talking, climbing stairs, carrying groceries. No lower extremity edema. No fever, chills or nights sweats. Reported unintentional weight loss 7-10 pounds over the last couple years. Currently smoking 1 ppd. Has never quit smoking. States she has tried Chantix and Nicotine patches without success. PAST MEDICAL HISTORY Diagnosis Date Acute pancreatitis 2010 Anisha Cruz Alcohol use disorder 01/18/2016 [facility] Anxiety 12/14/2015 Bipolar affective disorder, currently active ([facility]) 01/18/2016 [facility] Chronic bronchitis ([facility]) 07/26/2016 Closed skull fracture ([facility]) 1994 [facility] Coronary artery disease DDD (degenerative disc disease), cervical Endometriosis 2007 Essential hypertension 12/14/2015 GERD (gastroesophageal reflux disease) 03/13/2019 History of colon polyps History of gastric ulcer 12/14/2015 HLD (hyperlipidemia) Injury of left facial nerve 1994 PAD (peripheral artery disease) ([facility]) 09/28/2019 Recurrent major depression in partial remission ([facility]) 12/14/2015 S/P drug eluting coronary stent placement 08/25/2021 LAD and Dg2 Spinal stenosis Allergies: No Known Allergies isosorbide mononitrate ER (IMDUR) 30 mg 24 hr tablet TAKE 1 TABLET BY MOUTH EVERY DAY traZODone (DESYREL) 100 mg tablet Take 2 tablets by mouth daily at bedtime. uupvrihuuon-xumfcdmjs-znyvjodc (TRELEGY ELLIPTA) 200-62.5-25 mcg inhalation powder Inhale 1 Puff asinstructed once daily. venlafaxine ER (EFFEXOR XR) 150 mg 24 hr capsule Take 1 capsule by mouth once daily. Take with 75 mg capsule to =225 mg carvedilol (COREG) 6.25 mg tablet Take 1 tablet by mouth twice daily. lisinopril (ZESTRIL, PRINIVIL) 40 mg tablet Take 1 tablet by mouth once daily. venlafaxine ER (EFFEXOR XR) 75 mg 24 hr capsule Take 1 capsule by mouth once daily. Take with 150 mg capsule to =150 mg albuterol HFA (VENTOLIN HFA) 90 mcg/actuation inhaler Inhale 2 Puffs as instructed every 6 hours asneeded for wheezing/shortness of breath. amLODIPine (NORVASC) 10 mg tablet TAKE 1 TABLET BY MOUTH EVERY DAY omeprazole (PRILOSEC) 40 mg capsule Take 1 capsule by mouth once daily. aspirin 81 mg chewable tablet Take 1 [...] Substance Use Topics Alcohol use: Not Currently Alcohol/week: 60.0 standard drinks Types: 60 Standard drinks or equivalent per week Comment: Quit drinking in 2020 Drug use: No Family History Problem Relation Age of Onset Cancer Mother [...] TOTAL FACIAL NERVE DECOMPRESSION &/REPAIR Left 1989 [facility] I reviewed the past medical history, family history, social history and surgical history with changes noted above and updated in EMR. IMMUNIZATIONS Prevnar - 05/11/2022 Pneumovax - 04/21/2018, 09/13/2011 Influenza - 08/31/2022 COVID-19 - 11/21/2021 ROS: General: Generally feels well. Appetite good. Eyes, Ears, nose, throat: No post nasal drip, rhinorrhea, purulent nasal discharge, epistaxis. No hoarseness. Vision stable. Cardiac: No chest pain, angina, edema, orthopnea. Resp: See HPI. GI: No heartburn, dysphagia. Musculoskeletal: Chronic back pain. Neuro: No headache, focal weakness, tremor. Skin: No rash. Otherwise negative. PHYSICAL EXAMINATION: BP 140/90 Pulse 83 Resp 18 Ht 160 cm (5' 3") Wt 57.2 kg (126 lb) LMP (LMP Unknown) [id number]% BMI 22.32 kg/m Gen: No acute distress. Cooperative with examination. HEENT: Normocephalic. Sclera, conjunctiva clear. Poor dentition. No thrush. Resp: No stridor, accessory respiratory muscle use, supra-sternal or intercostal retractions. Expiratory wheezes. Diminished breath sounds. CV: Regular rythm. Heart tones normal. Radial pulses normal. Abd: Non distended. MSK: No kyphoscoliosis. Ext: Warm and well perfused. No clubbing, cyanosis, edema. Skin: No rash, ecchymoses. Neuro: Mental status normal. Affect normal. No tremor. DATA: PFT 05/2022: Review of spirometry shows severe obstruction without significant improvement post bronchodilators and moderate reduction in diffusing capacity CXR, 01/01/2023 IMPRESSION: No acute radiographic abnormality. COMPARISON: 03/08/2021 RESULT: Lines, tubes, and devices: Anterior cervical fusion hardware Lungs and pleura: No consolidation. No lung mass. No pleural effusion. No pneumothorax. Cardiomediastinal silhouette: Normal cardiomediastinal silhouette. Bones and soft tissues: Unremarkable. LDCT chest, 07/26/2022 RESULT: Are nodules present? Yes, 1-5 nodules Nodule 1: This Solid nodule is located in the Right Upper Lobe on slice number 103 with an average diameter of 8.2 mm (9.7 mm x 6.8 mm). Other lung nodule comments: None. Other findings: There is severe centrilobular emphysema with diffuse bronchial wall thickening. No focal consolidation. Linear atelectasis at the lung bases. The imaged thyroid gland is unremarkable.No thoracic lymphadenopathy. There are atherosclerotic calcifications in the thoracic aorta. The thoracic aorta and main pulmonary artery are normal in caliber. The cardiac chambers are normal in size. There are triple-vessel coronary artery calcifications noting LAD stents. No pericardial effusionor pericardial thickening. The imaged upper abdomen is stable without acute abnormality. Emphysema: Severe (50-75%), centrilobular, diffuse Coronary Artery Calcifications: Circumflex mild; Left Anterior Descending stents in place; Right Coronary mild IMPRESSION: LungRADS category: 2 LungRADS modifier: None LungRADS 0 reason: n/a Recommendations: Continue annual screening with LDCT in 12 months. Echocardiogram, 05/21/2022 CONCLUSIONS: - Technically difficult exam due to body habitus and COPD/SOB. - Exam indication: Shortness of Breath - The left ventricle is normal in size. Left ventricular systolic function is normal. EF = 59 5% (2D 4-ch.) Grade I left ventricular diastolic dysfunction. - The right ventricle is normal in size. Right ventricular systolic function is normal. - There are no significant valvular abnormalities. - There are no significant valvular abnormalities. - The patient has not had a prior CC echocardiographic exam for comparison. Labs Component Latest Ref Rng & Units 01/01/2023 Alpha 1 Antitrypsin 90 - 200 mg/dL 192 ASSESSMENT/PLAN: 1. Stage 3 severe COPD by GOLD classification (HCC) - ICD9: 496, ICD10: J44.9 (primary diagnosis) Alpha-1 normal. Continue triple therapy with Trelegy Ellipta. Rinse mouth after each use to help prevent oral thrush. Albuterol HFA inhaler, 2 inhalations 10-15 minutes prior to activities associated with shortness ofbreath, and as needed for rescue relief of shortness of breath or wheezing, up to 4 times daily. Smoking cessation is critical. Discussed pulmonary rehab, but patient declined. 2. Cigarette smoker - ICD9: 305.1, ICD10: F17.210 - Cessation encouraged. - Physiologic and physical aspects of tobacco addiction as well as strategies for quitting were discussed. - Counseling was given focusing on the harmful effects of this addiction especially given the patient's medical condition(s) which will be worsened because of the chemicals in tobacco. Patient is not interested in smoking cessation or quitting at this time. 3. Lung nodules - ICD9: 793.19, ICD10: R91.8 Enrolled with lung cancer screening. Would like to follow up locally here in [place]. Next LDCT due July 2023. Portions of this documentation were copied and pasted from previous office visit notes in order to provide a cohesive continuity of the history. The note has been reviewed and edited and updated as necessary. Mely Griffin PA-C [facility] NoteHNO ID: [id number] Author: RT Aziza(R) Service: ? Author Type: Sign Artist Type: Progress Notes Filed: 05/08/2023 1:01 PM Note Text: Radiology Service Progress Note PATIENT NAME: Steven Koenig DATE OF SERVICE: May 08, 2023 TIME: 12:52 PM PATIENT IDENTITY VERIFICATION COMPLETED USING TWO (2) IDENTIFIERS: Name and Date of confirmed by patient verbally. FALL SCREENING: Has the patient had 2 falls in the last year or 1 fall with injury or currently using an Ambulatory Assistive Device (Walker, Cane, Wheelchair, Crutches, etc.)? No PATIENT GENDER DATA: Female. status: : No status: NO. PATIENT RELEVANT IMPLANT DATA REVIEWED: Yes RADIOLOGY DEPARTMENT: General X-ray: Exam(s) Completed: Spine X-Ray(s): Lumbar AP / LAT / L5-S1 PERIPHERAL IV DATA: Not applicable SIGNED BY: RT Aziza(R) May 08, 2023 12:52 [facility]06-28-2023 NoteHNO ID: [id number] Author: Oly Smith APRN.CNP Service: ? Author Type: Nurse Practitioner Type: Progress Notes Filed: 05/08/2023 2:36 PM Note Text: CC: Patient presents with: Follow Up: Blood pressure HPI Steven Koenig is a 67 year old female who presents today for above. Worsening of chronic low back pain x 3 months. Pain radiates down the right leg to the foot and to the left buttock. Associated with right foot numbness. Denies weakness, bowel/bladder incontinence, saddle anesthesia, fever, chills, night sweats, unintentional weight loss. She has a history of lumbar DDD and spinal stenosis. Last saw pain management in 2019. Was doing better until recently. She has a lesion on her left ear present for over one year. Itchy and crusty at times. She did not follow-up with dermatology as previously recommended. COPD: symptoms are not well controlled. She is using Trelegy as directed, does not think it is working well. She continues to smoke about 1 PPD. HTN-Medication changes:No Taking all medications as prescribed: Yes Side effects: No Home BP's: No Last 3 Encounter BP Readings: Date: BP: 05/08/2023 134/88 04/02/2023 138/76 01/01/2023 170/83[bp true average[ Bipolar disorder/depression: taking Effexor 225 mg daily. Feels that she is doing well on current dose. Denies any manic symptoms, feeling down, depressed, hopeless, SI or HI REVIEW OF SYSTEMS RESPIRATORY: Positive for chronic cough, wheezing and SOB CARDIOVASCULAR: Negative for chest pain, leg swelling, and palpitations PAST MEDICAL HISTORY Diagnosis Date Acute pancreatitis 2010 Anisha Cruz Alcohol use disorder 01/18/2016 [facility] Anxiety 12/14/2015 Bipolar affective disorder, currently active ([facility]) 01/18/2016 [facility] Chronic bronchitis ([facility]) 07/26/2016 Closed skull fracture ([facility]) 1994 [facility] Coronary artery disease DDD (degenerative disc disease), cervical Endometriosis 2007 Essential hypertension 12/14/2015 GERD (gastroesophageal reflux disease) 03/13/2019 History of colon polyps History of gastric ulcer 12/14/2015 HLD (hyperlipidemia) Injury of left facial nerve 1994 PAD (peripheral artery disease) ([facility]) 09/28/2019 Recurrent major depression in partial remission ([facility]) 12/14/2015 S/P drug eluting coronary [...] HYSTERECT W/WO RMVL TUBE OVARY 1979 Hysterectomy, AMURA TOTAL FACIAL NERVE DECOMPRESSION AND/REPAIR Left 1989 [facility] ALLERGIES Patient has no known allergies. MEDICATIONS isosorbide mononitrate ER (IMDUR) 30 mg 24 hr tablet TAKE 1 TABLET BY MOUTH EVERY DAY (Patient not taking: Reported on 04/02/2023) predniSONE (DELTASONE) 10 mg tablet TAKE TWO DAILY FOR 5 DAYS THEN ONE DAILY FOR 10 DAYS (Patient not taking: Reported on 04/02/2023) traZODone (DESYREL) 100 mg tablet Take 2 tablets by mouth daily at bedtime. tpvtemnnvhm-ioewaczyl-xreifqlg (TRELEGY ELLIPTA) 200-62.5-25 mcg inhalation powder Inhale 1 Puff as instructed once daily. nystatin (MYCOSTATIN) 100,000 unit/mL suspension Take 5 mL by mouth four times daily. 1tsp swish in mouth for several minutes, then swallow (or expectorate) 4 times daily until gone. (Patient not taking: No sig reported) acetaminophen (TYLENOL EXTRA STRENGTH) 500 mg tablet [...] once daily. lisinopril (ZESTRIL, PRINIVIL) 40 mg tablet Take [...] tablet TAKE 1 TABLET BY MOUTH EVERY DA (more content not included)...[facility]06-28-[facility] History of Present illness Narrative* Oly Older, [employer].ANESTHESIOLOGY FACULTY - 05/08/2023 12:24 PM EDT CC: Patient presents with: Follow Up: Blood pressure HPI Steven Koenig is a 67 year old female who presents today for above. Worsening of chronic low back pain x 3 months. Pain radiates down the right leg to the foot and to the left buttock. Associated with right foot numbness. Denies weakness, bowel/bladder incontinence, saddle anesthesia, fever, chills, night sweats, unintentional weight loss. She has a history of lumbar DDD and spinal stenosis. Last saw pain management in 2019. Was doing better until recently. She has a lesion on her left ear present for over one year. Itchy and crusty at times. She did not follow-up with dermatology as previously recommended. COPD: symptoms are not well controlled. She is using Trelegy as directed, does not think it is working well. She continues to smoke about 1 PPD. HTN-Medication changes:No Taking all medications as prescribed: Yes Side effects: No Home BP's: No Last 3 Encounter BP Readings: Date: BP: 05/08/2023 134/88 04/02/2023 138/76 01/01/2023 170/83[bp true average[ Bipolar disorder/depression: taking Effexor 225 mg daily. Feels that she is doing well on current dose. Denies any manic symptoms, feeling down, depressed, hopeless, SI or HI REVIEW OF SYSTEMS RESPIRATORY: Positive for chronic cough, wheezing and SOB CARDIOVASCULAR: Negative for chest pain, leg swelling, and palpitations PAST MEDICAL HISTORY Diagnosis Date Acute pancreatitis 2010 Anisha Cruz Alcohol use disorder 01/18/2016 [facility] Anxiety 12/14/2015 Bipolar affective disorder, currently active ([facility]) 01/18/2016 [facility] Chronic bronchitis ([facility]) 07/26/2016 Closed skull fracture ([facility]) 1994 [facility] Coronary artery disease DDD (degenerative disc disease), cervical Endometriosis 2007 Essential hypertension 12/14/2015 GERD (gastroesophageal reflux disease) 03/13/2019 History of colon polyps History of gastric ulcer 12/14/2015 HLD (hyperlipidemia) Injury of left facial nerve 1994 PAD (peripheral artery disease) ([facility]) 09/28/2019 Recurrent major depression in partial remission ([facility]) 12/14/2015 S/P drug eluting coronary [...] TOTAL FACIAL NERVE DECOMPRESSION &/REPAIR Left 1989 [facility] ALLERGIES Patient has no known allergies. MEDICATIONS isosorbide mononitrate ER (IMDUR) 30 mg 24 hr tablet TAKE 1 TABLET BY MOUTH EVERY DAY (Patient not taking: Reported on 04/02/2023) predniSONE (DELTASONE) 10 mg tablet TAKE TWO DAILY FOR 5 DAYS THEN ONE DAILY FOR 10 DAYS (Patient not taking: Reported on 04/02/2023) traZODone (DESYREL) 100 mg tablet Take 2 tablets by mouth daily at bedtime. ayhzqjzgzzo-nklvfyvwd-jonhxstu (TRELEGY ELLIPTA) 200-62.5-25 mcg inhalation powder Inhale 1 Puff asinstructed once daily. nystatin (MYCOSTATIN) 100,000 unit/mL suspension Take 5 mL by mouth four times daily. 1tsp swish inmouth for several minutes, then swallow (or expectorate) 4 times daily until gone. (Patient not taking: No sig reported) acetaminophen (TYLENOL EXTRA STRENGTH) 500 mg tablet Take 1 tablet by mouth every 8 hours as neededfor pain. venlafaxine ER (EFFEXOR XR) 150 mg 24 hr capsule Take 1 capsule by mouth once daily. Take with 75 mg capsule to =225 mg carvedilol (COREG) 6.25 mg tablet Take 1 tablet by mouth twice daily. Olopatadine (PATADAY ONCE DAILY RELIEF) 0.2 % drop Use 1 Drop in both eyes once daily. lisinopril (ZESTRIL, PRINIVIL) 40 mg tablet Take [...] 6 hours asneeded for wheezing/shortness of breath. amLODIPine (NORVASC) 10 mg tablet TAKE 1 TABLET BY MOUTH EVERY DAY omeprazole (PRILOSEC) 40 mg capsule Take 1 capsule by mouth once daily. aspirin 81 mg chewable tablet Take 1 [...] used Substance Use Topics Alcohol use: Yes Alcohol/week: 60.0 standard drinks Types: 60 Standard drinks or equivalent per week Drug use: No PHYSICAL EXAM BP 134/88 Pulse 90 Resp 20 Wt 56.2 kg (124 lb) LMP (LMP Unknown) BMI 21.40 kg/m General Appearance: well appearing, in no acute distress, alert Back: Reflexes 2+ and symmetric, tenderness with palpation of lumbar spine Lungs: diminished throughout with scattered wheezing. No rhonchi or rales Heart: RRR without murmur, gallop, or rubs. No ectopy Health maintenance reviewed with patient: BONE DENSITY Never done BP CONTROLLED (<130/80) due on 01/06/2021 LDL CHOLESTEROL due on 09/27/2022 ADVANCE DIRECTIVE DISCUSSION Never done DTAP,TDAP,TD(1 - Tdap) due on 08/31/2023 SHINGRIX VACCINE(1 of 2) due on 08/31/2023 COVID-19 VACCINE(2 - Pfizer series) due on 08/31/2023 LUNG CANCER SCREENING due on 07/26/2023 ANNUAL PCP TEAM CHRONIC DISEASE VISIT due on 01/01/2024 DIABETES SCREEN due on 10/19/2024 LIPID SCREEN due on 09/27/2026 COLORECTAL CANCER SCREENING due on 04/03/2027 ALPHA-1 ANTITRYPSIN DEFICIENCY SCREENING Completed SPIROMETRY Completed INFLUENZA Completed HEPATITIS C SCREENING Completed PNEUMOCOCCAL: 65+ Completed MAMMOGRAM Discontinued DATA REVIEWED: Most recent labs ASSESSMENT/PLAN: 1. Chronic midline low back pain with sciatica, sciatica laterality unspecified - ICD9: 724.2, 724.3, 338.29, ICD10: M54.40, G89.29 (primary diagnosis) No alarm symptoms or exam findings. - XR LUMBAR GENERAL 3V AP/LAT/L5-S1 - further recommendations pending results 2. Lesion of left ear - ICD9: 380.9, ICD10: H93.92 - CONSULT TO DERMATOLOGY 3. Essential hypertension - ICD9: 401.9, ICD10: I10 - Uncontrolled - Continue current medications - Recommend home blood pressure monitoring, to bring results to next visit - Encouraged sodium restriction, DASH or Mediterranean diet - Recommend regular aerobic exercise - COMP METABOLIC PANEL - CBC + DIFF 4. Mixed hyperlipidemia - ICD9: 272.2, ICD10: E78.2 - Control undetermined, due for labs - LIPID PANEL, NONFASTING 5. Chronic bronchitis, unspecified chronic bronchitis type (HCC) - ICD9: 491.9, ICD10: J42 Follow-up with pulmonology tomorrow as scheduled 6. Recurrent major depression in partial remission (HCC) - ICD9: 296.35, ICD10: F33.41 Stable 7. Coronary artery disease involving [place] coronary artery of [place] heart without angina pectoris- ICD9: 414.01, ICD10: I25.10 Follow-up with cardiology Prescription instructions reviewed with patient as applicable. Potential red flag symptoms discussed with the patient. Reviewed appropriate action plan to take if red flag symptoms occur. Patient agreeable to treatment plan. Oly Smith APRN.CNP [facility]28[facility] Instructions* Patient Instructions* Oly Smith APRN.CNP - 05/08/2023 12:24 PM EDT [facility] dermatology [phone] documented in this encounterT[facility]06-08-[facility]23 NoteHNO ID: [id number] Author: Melissa Vital MA Service: ? Author Type: Repair Armature Winder Type: Progress Notes Filed: 04/18/2023 10:01 AM Note Text: POPULATION HEALTH NAVIGATION OUTREACH Action/ Patient returned call. Per patient request scheduled follow up/htn/HCC appointment for 05/03/23 with PCP. Patient Identified by Name and : YES, via phone Outreach Outcome/Action Spoke to patient / parent / legal guardian: Patient scheduled Did you use a PCP flex slot to schedule this appointment? No Navigation Signature: Melissa Vital MA April 18, 2023 9:59 [facility]06-06-2023 NotePatient Outreach (NETNAV) STEVEN KOENIG ([id number]) 1955 F Date Time Provider Department 04/16/23 MELISSA VITAL During your visit today, we recorded the following information about you: Melissa Vital MA 04/16/2023 11:48 AM Signed POPULATION HEALTH NAVIGATION OUTREACH Action/FYI Spoke with patient. Patient states will call back later to schedule. Annual wellness/htn/HCC Declined my chart Will discuss AD with PCP Navigator Kailash amaya HCC gap outreach F31.9 - Bipolar affective disorder, currently active (HCC) - [id number] Last Billed 08/31/2022 F33.41 - Recurrent major depression in partial remission (HCC) - [id number] Last Billed 08/31/2022 Patient Identified by Name and : YES, via phone Outreach Outcome/Action Spoke to patient / parent / legal guardian: Patient will return the call or ask for return call Did you use a PCP flex slot to schedule this appointment? N/A Reason for Outreach HCC or suspected condition Payer: Payor: [id number] / Plan: [employer] HMO / Product Type: HMO / Care Gap Reviewed:: Annual Wellness visit Controlling Blood Pressure Reminder: Reminder note to check Health Maintenance for items below Health Maintenance items due: BONE DENSITY Never done BP CONTROLLED (<130/80) due on 01/06/2021 LDL CHOLESTEROL due on 09/27/2022 ADVANCE DIRECTIVE DISCUSSION Never done Navigation Signature: Melissa Vital MA April 16, 2023 11:39 AM Melissa Vital MA 04/18/2023 10:01 AM Signed POPULATION HEALTH NAVIGATION OUTREACH Action/FYI Patient returned call. Per patient request scheduled follow up/htn/HCC appointment for 05/03/23 with PCP. Patient Identified by Name and : YES, via phone Outreach Outcome/Action Spoke to patient / parent / legal guardian: Patient scheduled Did you use a PCP flex slot to schedule this appointment? No Navigation Signature: Melissa Vital MA April 18, 2023 9:59 AM Allergies As of Date: 04/16/2023 (No Known Allergies) Date Reviewed: 04/02/2023 Reviewed by: CAESAR Hobson - Fully Assessed Reason for Visit: Population Health Navigation Outreach [3910] Cmt: Navigator Kailash amaya [facility] gap outreach Prescriptions as of 04/18/2023 - isosorbide mononitrate ER (IMDUR) 30 mg 24 hr tablet TAKE 1 TABLET BY MOUTH EVERY DAY - predniSONE (DELTASONE) 10 mg tablet TAKE TWO DAILY FOR 5 DAYS THEN ONE DAILY FOR 10 DAYS - traZODone (DESYREL) 100 mg tablet Take 2 tablets by mouth daily at bedtime. - rozrbwuiubd-mmflvhzta-xggsqehv (TRELEGY ELLIPTA) 200-62.5-25 mcg inhalation powder Inhale 1 Puff as instructed once daily. - nystatin (MYCOSTATIN) 100,000 unit/mL suspension Take 5 mL by mouth four times daily. 1tsp swish in mouth for several minutes, then swallow (or expectorate) 4 times daily until gone. - acetaminophen (TYLENOL EXTRA STRENGTH) 500 mg tablet Take 1 tablet by mouth every 8 hours as needed for pain. - venlafaxine ER (EFFEXOR XR) 150 mg 24 hr capsule Take 1 capsule by mouth once daily. Take with 75 mg capsule to =225 mg - carvedilol (COREG) 6.25 [...] with 150 mg capsule to =150 mg - triamcinolone acetonide (KENALOG) 0.1 % cream Apply 1 application to affected area three times daily. Apply sparingly to area for rash/itching. - albuterol HFA (VENTOLIN HFA) 90 mcg/actuation inhaler Inhale 2 Puffs as instructed every 6 hours as needed for wheezing/shortness of breath. - amLODIPine (NORVASC) 10 mg tablet TAKE 1 TABLET BY MOUTH EVERY DAY - omeprazole (PRILOSEC) 40 mg capsule Take 1 capsule by mouth once daily. - aspirin 81 mg chewable tablet Take 1 tablet by mouth once daily. - clopidogrel (PLAVIX) 75 mg tablet Take 1 tablet by mouth once daily. Problem List As Of Date 04/16/2023 Noted Resolved Essential hypertension [I10] 12/14/2015 Recurrent major depression in partial remission*12/14/2015 Anxiety [F41.9] 12/14/2015 01/06/2021 Bipolar affective disorder, currently active (H*01/18/2016 History of alcohol abuse [F10.11] 01/18/2016 Chronic bronchitis (HCC) [J42] 07/26/2016 Hyperkalemia [E87.5] 07/27/2016 11/27/2018 Polycythemia [D75.1] 07/27/2016 11/27/2018 Spinal stenosis, lumbar region without neurogen*12/01/2018 Radiculopathy, lumbar region [M54.16] 12/01/2018 Smoker [F17.200] 03/13/2019 GERD (gastroesophageal reflux disease) [K21.9] 03/13/2019 Primary osteoarthritis of right hip [M16.11] 03/13/2019 10/06/2019 History of total right hip arthroplasty [Z96.64*03/25/2019 07/07/2020 Seasonal allergies [J30.2] 05/04/2019 Preop cardiovascular exam [Z01.810] 09/28/201909/12 (more content not included)...[facility]06-06-2023 NoteHNO ID: [id number] Author: Melissa Vital MA Service: ? Author Type: Repair Armature Winder Type: Progress Notes Filed: 04/16/2023 11:48 AM Note Text: POPULATION HEALTH NAVIGATION OUTREACH Action/FYI Spoke with patient. Patient states will call back later to schedule. Annual wellness/htn/HCC Declined my chart Will discuss AD with PCP Navigator Kailash amaya HCC gap outreach F31.9 - Bipolar affective disorder, currently active (HCC) - [id number] Last Billed 08/31/2022 F33.41 - Recurrent major depression in partial remission (HCC) - [id number] Last Billed 08/31/2022 Patient Identified by Name and : YES, via phone Outreach Outcome/Action Spoke to patient / parent / legal guardian: Patient will return the call or ask for return call Did you use a PCP flex slot to schedule this appointment? N/A Reason for Outreach HCC or suspected condition Payer: Payor: KAILASH [employer] / Plan: KAILASH [email or web address] HMO / Product Type: HMO / Care Gap Reviewed:: Annual Wellness visit Controlling Blood Pressure Reminder: Reminder note to check Health Maintenance for items below Health Maintenance items due: BONE DENSITY Never done BP CONTROLLED (<130/80) due on 01/06/2021 LDL CHOLESTEROL due on 09/27/2022 ADVANCE DIRECTIVE DISCUSSION Never done Navigation Signature: Melissa Vital MA April 16, 2023 11:39 [facility]06-06-2023 History of Present illness Narrative* Melissa Vital MA - 04/16/2023 11:39 AM EDT POPULATION HEALTH NAVIGATION OUTREACH Action/FYI Spoke with patient. Patient states will call back later to schedule. Annual wellness/htn/HCC Declined my chart Will discuss AD with PCP Navigator Kailash amaya HCC gap outreach F31.9 - Bipolar affective disorder, currently active (HCC) - [id number] Last Billed 08/31/2022 F33.41 - Recurrent major depression in partial remission (HCC) - [id number] Last Billed 08/31/2022 Patient Identified by Name and : YES, via phone Outreach Outcome/Action Spoke to patient / parent / legal guardian: Patient will return the call or ask for return call Did you use a PCP flex slot to schedule this appointment? N/A Reason for Outreach HCC or suspected condition Payer: Payor: KAILASH [id number] / Plan: KAILASH [email or web address] HMO / Product Type: HMO / Care Gap Reviewed:: Annual Wellness visit Controlling Blood Pressure Reminder: Reminder note to check Health Maintenance for items below Health Maintenance items due: BONE DENSITY Never done BP CONTROLLED (<130/80) due on 01/06/2021 LDL CHOLESTEROL due on 09/27/2022 ADVANCE DIRECTIVE DISCUSSION Never done Navigation Signature: Melissa Vital MA April 16, 2023 11:39 AM [facility] NoteHNO ID: [id number] Author: Doron Self DO Service: Vascular Surgery Author Type: Physician Type: Progress Notes Filed: 04/09/2023 5:57 PM Note Text: NAME: STEVEN KOENIG CLINIC NO: [id number] DATE OF SERVICE: 04/02/2023 Subjective: Elle is here to follow up on peripheral arterial disease. She has a history of right common femoral endarterectomy with iliac intervention [place] [address] Rodriges. She denies any significant lifestyle- limiting claudication or rest pain. She does only walk short distances. Her legs feel heavy and tired at times. She also describes neuropathy; however, she does have some issues with her back. Her biggest complaint she said that is bothering her now is that occasionally, she will get some significant heart palpitations. She was scheduled to see Cardiology at the beginning of the month; however, she needed to cancel that appointment and has not been rescheduled. She also complains of some pain on her left ear in the location of a lesion. She has not seen Dermatology. She has seen someone here in the past she states provided a cream for her; however, that did not significant help. Objective: Her vital signs are stable. She is in no distress. She has nonpalpable distal pulses. Her heart is regular. Reviewed her PVRs, which are stable. The right is 0.60; the left is 0.61, which is stable from the last six months. Assessment/Plan: Peripheral arterial disease. Reviewed the findings with Steven. Recommend that she follow up with me in six months, or sooner with any concerns. Doron Self D.O. KB/089 Audio #: [id number] Date Dictated: 04/02/2023 08:47:00 Date Typed: 04/06/2023 05:15:49 Date Revised:[facility]05-23-2023 NoteHNO ID: [id number] Author: Doron Self, DO Service: ? Author Type: Physician Type: Progress Notes Filed: 04/02/2023 10:58 AM Note Text: This office note has been dictated. Doron Self, [facility] Miscellaneous Notes* Telephone Encounter - Doron Navarrete LPN - 02/27/2023 8:41 AM EDT Patient phones requesting refills as follows: Requested Prescriptions Pending Prescriptions Disp Refills predniSONE (DELTASONE) 10 mg tablet [Pharmacy Med Name: PREDNISONE 10 MG TABLET] 20 tablet 0 Sig: TAKE TWO DAILY FOR 5 DAYS THEN ONE DAILY FOR 10 DAYS Please review and advise. Doron Navarrete LPN documented in this encounterT[facility]02-27-[address] Teague [facility] January 07, 2023 11:57am Note Date/Time January 07, 2023 11:47am [facility] Medical Records Department [address] [place] [address] Instructions for Home/Discharge Instructions 01/07/23 1143 MR#: [id number] Acct: [id number] Name: STEVEN KOENIG Rep #:[id number] : 1955 67 From: Siddhartha Teague DO PCP: Dr. Ulises Hermosillo MD Status:A DM IN Discharge Instructions Diet Discharge Diet: No restrictions Activity Discharge Activity: Return to Normal Activity Weight Bearing Status: Full weight bearing Follow Up Care Test Results: Test results from this visit will be discussed in further detail at your follow- up appointment, if applicable. Discharge Plan Admission Admit Date/Time: 01/02/23 21:18 Primary Reason for Your Visit: alcohol withdrawal, pneumonia Attending Provider: Siddhartha Teague Primary Care Provider: Ulises Hermosillo Consulting Providers: Linda Luque ; Joel Sauer Discharge Orders/Prescriptions Prescriptions: New levofloxacin 500 mg tablet 500 mg PO DAILY Qty: 5 0RF prednisone 20 mg tablet 20 mg PO DAILY Qty: 5 0RF Rx Instructions: take starting on 01/08/23 for 5 days Continued albuterol sulfate [Ventolin HFA] 1 INHALER inhaler 2 puff inhalation Q2H PRN (Reason: Wheezing) Qty: 1 2RF Label Comments: inhaler, asthma trazodone 100 MG tablet 200 mg PO QHS Label Comments: paroxetine HCl [Paxil] 30 mg tablet 30 mg PO DAILY Label Comments: Take 1 tablet by mouth every morning metoprolol tartrate 25 MG tablet 25 mg PO BID Label Comments: TAKE 1 TABLET BY MOUTH TWICE DAILY. Omeprazole [Prilosec] 40 MG capsule 40 mg PO DAILY hydroxyzine pamoate [Vistaril] 50 mg capsule 50 mg PO TID PRN PRN (Reason: Anxiety) Label Comments: 1 capsule three times a day as needed amlodipine 5 MG tablet 5 mg PO DAILY lisinopril 40 MG tablet 40 mg PO DAILY venlafaxine 75 mg capsule,extended release 24hr 75 mg PO DAILY Label Comments: TAKE 1 CAPSULE BY MOUTH ONCE DAILY. TAKE WITH 150 MG CAPSULE TO =150 MG Rx Instructions: Take with 150mg dose venlafaxine 150 mg capsule,extended release 24hr 150 mg PO DAILY Label Comments: TAKE 1 CAPSULE BY MOUTH ONCE DAILY. TAKE WITH 75 MG CAPSULE TO =225 MG Rx Instructions: Take with 75mg dose carvedilol 6.25 mg tablet 6.25 mg PO BID Label Comments: TAKE 1 TABLET BY MOUTH TWICE A DAY isosorbide mononitrate 30 mg tablet extended release 24 hr 30 mg PO DAILY Label Comments: TAKE 1 TABLET BY MOUTH EVERY DAY Referrals / Follow Up: Ulises Hermosillo MD [Primary Care Provider] - Disposition Disposition (needs filled in before D/C Order can be placed): Home, Self Care 01/07/23 7627<Electronically signed by Siddhartha Teague DO>Siddhartha Teague DO CC: Dr. Linda Luque MD; Dr. Joel Sauer DO; Dr. Ulises Hermosillo MD ~ Signed [facility] Work Phone: 1(830) 902-726802-26-[address] Sauer [facility] January 06, 2023 12:31pm Note Date/Time January 06, 2023 7:53am [facility] Medical Records Department [address] [place] [address] Progress Note - Hospitalist 01/06/23 0749 MR#: [id number] Acct: [id number] Name: STEVEN KOENIG Rep #:[id number] : 1955 67 From: Joel Sauer DO PCP: Dr. Ulises Hermosillo MD Status:A DM IN Location: [place] [address] Reason for Visit Reason for Visit: Diagnoses Peripheral vascular disease, unspecified (01/02/23) Chronic obstructive pulmonary disease with (acute) exacerbation (01/02/23) Chest pain, unspecified (01/02/23) Rash and other nonspecific skin eruption (01/02/23) Subjective Subjective Feels okay. No further events. Objective Data Objective Data Vital Signs: Vital Signs Temp Pulse Resp BP Pulse Ox O2 Del Method O2 Flow Rate 36.7 C 76 18 149/86 H 94 Nasal Cannula 2 01/06/23 03:10 01/06/23 03:10 01/06/23 03:10 01/06/23 03:10 01/06/23 03:10 01/06/23 03:10 01/06/23 03:10 Oxygen Flow Rate (L/min) 2 Oxygen Delivery Method Nasal Cannula Weight: 59.1 kg Body Mass Index (BMI) 21.7 Intake & Output: Intake and Output for Last 24 Hours 01/04/23 01/05/23 01/06/23 23:59 23:59 23:59 Intake Total 1020 / 1320 2390 / 2390 50 / 50 Balance 1020 / 1320 2390 / 2390 50 / 50 Medical Nutrition Assessment Dietitian: Malnutrition Criteria Met Start: 01/03/23 10:58 Freq: Status: Active Protocol: Document 01/03/23 10:58 AG (Rec: 01/03/23 10:58 AG [id number]) Nutrition Malnutrition Evidence of Malnutrition Exists Yes Malnutrition (moderate): Acute Illness/Injury Evidenced By Suboptimal Energy Intake ( Moderate),Weight Loss ( Moderate) Clinical Problem Acute Disease or Injury Related Malnutrition Etiology moderate, acute malnutrition related to inadequate oral intake d/t excessive alcohol consumption Signs/Symptoms as evidenced by unintentional 6.7#/5% wt loss x 1 month; estimated PO intake meeting < 75% of estimated energy needs x 1 month Status Active Problem Recommendation Dietitian Recommendations/Changes will adjust diet to regular given evidence of acute malnutrition; continue ensure plus high protein 120mL 4x/day w/ medpass for additional protein/calories if consumed Lab / Micro Data Result Diagrams: 01/03/23 06:07 01/03/23 06:07 Labs: Laboratory Results - last 24 hr 01/05/23 11:09: POC Glucose 138 H 01/05/23 18:04: POC Glucose 150 H 01/05/23 21:29: POC Glucose 184 H 01/06/23 06:37: POC Glucose 84 Micro: Microbiology 01/02/23 23:50 Sputum, Expectorated/Coughed Gram Stain - Final 01/02/23 23:50 Sputum, Expectorated/Coughed Respiratory Culture - Final Streptococcus pneumoniae 02/22/23 23:40 Mucosa - Nasopharyngeal Respiratory Panel (PCR) - Final Physical Exam Const alert and no apparent distress HEENT head/scalp atraumatic Resp normal respiratory effort and no retractions Auscultation: wheezes Cardio regular rate, regular rhythm, S1 normal heart sound and S2 normal heart sound GI normal to inspection, nondistended, normoactive bowel sounds and soft to palpation Extremity normal to inspection Assessment & Plan Assessment/Plan (1) COPD exacerbation: PLAN: Acute Hypoxia secondary to Acute Mild on Chronic COPD exacerbation: continue ATC duonebs, PRN albuterol, HOB, IS parameters, procalcitonin requested, Respiratory panel negative Sputum culture pending On prednisone. Complicated by pneumonia. (2) Chest pain: PLAN: Chest Pain, suspected more so related to acute COPD exacerbation as noted #1: EKG in ED sinus rhythm with no evidence of ischemia, CXR w/ chronic COPD type changes with no acute cardiopulmonary findings otherwise, initial trop 17. Will place on a monitored bed to assure no acute myocardial infarction with serial cardiac enzymes and EKGs. Again lower suspicion for cardiac etiology butto be cautious we will trend enzymes, obtain FLP in a.m. as well as magnesium level. ASA, NG. If any concerning EKG changes or elevated enzymes arise may consider future stress testing. Troponins negative x3 Atypical. No additional work-up at this time. (3) Desire for detoxification: PLAN: Acute EtOH Withdrawal: Given interest in sobriety, will initiate and continue on protocol with taper course of Phenobarbital, scheduled gabapentin for seizure prophylaxis, as neededBentyl, Vistaril, IV fluids, IV antiemetics, Tylenol as needed for pain. Will consult Case management for assistance for transition to next level of rehabilitation care. Mag, phos pending. Maintain on CIWA protocol concurrently. (4) Peripheral arterial disease: PLAN: Patient had some type of bypass on her right leg. Currently complaining of right toe numbness. Check ABIs. Final read pending but appears to be 0.51 on the right and 0.58 on the left. Patient has had a bypass before. No evidence of any cyanosis or certainly no necrosis at this time. Patient does have a vascular surgeon whom she will be following up with in the future. (5) Rash: PLAN: Patient had erythema on her face as well as her upper chest but not noted elsewhere. Unclear if that was the actual drug rash sure what that actually was. Phenobarbital was discontinued. 01/05: Improved today. It cannot determine if this is due to phenobarbital or not as it had an atypical distribution with involving the upper chest and face. Patient denies any sun exposure. (6) Pneumococcal pneumonia: PLAN: Noted on sputum culture. Started on ceftriaxoneOn the . Can change to amoxicillin 1g TID upon discharge. Continue antibiotics through January 09. PLAN: Plan Chronic conditions: * Anxiety and depression: We will continue patient home trazodone as well as paroxetine home regimen, would benefit greatly from counseling especially given ongoing alcohol abuse and recent admissions of significant events in her life leading to increased alcohol consumption. * Hypertension: Continue home regimen including lisinopril, amlodipine, metoprolol, PRN hydralazine. * Hyperlipidemia: Cholesterol 225. LDL 114. We will start atorvastatin 20. * Tobacco Abuse: Encouraged cessation, inpatient consultation per RT, NR if desired. * GERD: We will maintain on PPI. DVT prophylaxis: SCDs, Lovenox. Disposition: To inpatient rehab unit on the . Check an ambulatory oxygen evaluation prior to discharge. Charges/Coding Visit Charges Inpatient E&M: 24897 Subs Hosp L2 01/06/23 1231 <Electronically signed by Joel Sauer DO> Cosigner Signature (if applicable): CC: ~ Signed [facility] Work Phone: 1(313) 311-700002-26-[address] Luque [facility] January 06, 2023 3:54am Note Date/Time January 06, 2023 3:54am [facility] Medical Records Department [address] [place] [address] Progress Note - Hospitalist 01/06/23352 MR#: [id number] Acct: [id number] Name: STEVEN KOENIG Rep #:[id number] : 1955 67 From: Linda Luque MD PCP: Dr. Ulises Hermosillo MD Status:A DM IN Location: [place] [id number] Hospitalist Note Preliminary respiratory culture with strep pneumo, Rocephin added. 01/06/234 <Electronically signed by Linda Luque MD> Cosigner Signature (if applicable): CC: ~ Signed [facility] Work Phone: 1(921) 679-697802-25-[address] Sauer [facility] January 05, 2023 3:15pm Note Date/Time January 05, 2023 8:27am [facility] Medical Records Department [address] [place] [address] Progress Note - Hospitalist 01/05/2325 MR#: [id number] Acct: [id number] Name: STEVEN KOENIG Rep #:[id number] : 1955 67 From: Joel Sauer DO PCP: Dr. Ulisse Hermosillo MD Status:A DM IN Location: [place] [address] Reason for Visit Reason for Visit: Diagnoses Peripheral vascular disease, unspecified (01/02/23) Chronic obstructive pulmonary disease with (acute) exacerbation (01/02/23) Chest pain, unspecified (01/02/23) Subjective Subjective Breathing okay. Objective Data Objective Data Vital Signs: Vital Signs Temp Pulse Resp BP Pulse Ox O2 Del Method O2 Flow Rate 36.6 C 76 18 139/93 H 95 Nasal Cannula 2 01/05/23 04:20 01/05/23 07:35 01/05/23 07:35 01/05/23 04:20 01/05/23 08:06 01/05/23 08:06 01/05/23 08:06 Oxygen Flow Rate (L/min) 2 Oxygen Delivery Method Nasal Cannula Weight: 59.5 kg Body Mass Index (BMI) 21.8 Intake & Output: Intake and Output for Last 24 Hours 01/03/23 01/04/23 01/05/23 23:59 23:59 23:59 Intake Total 2059 1020 / 1320 600 / 600 Balance 2059 1020 / 1320 600 / 600 Medical Nutrition Assessment Dietitian: Malnutrition Criteria Met Start: 01/03/23 10:58 Freq: Status: Active Protocol: Document 01/03/23 10:58 AG (Rec: 01/03/23 10:58 AG [id number]) Nutrition Malnutrition Evidence of Malnutrition Exists Yes Malnutrition (moderate): Acute Illness/Injury Evidenced By Suboptimal Energy Intake ( Moderate),Weight Loss ( Moderate) Clinical Problem Acute Disease or Injury Related Malnutrition Etiology moderate, acute malnutrition related to inadequate oral intake d/t excessive alcohol consumption Signs/Symptoms as evidenced by unintentional 6.7#/5% wt loss x 1 month; estimated PO intake meeting < 75% of estimated energy needs x 1 month Status Active Problem Recommendation Dietitian Recommendations/Changes will adjust diet to regular given evidence of acute malnutrition; continue ensure plus high protein 120mL 4x/day w/ medpass for additional protein/calories if consumed Lab / Micro Data Result Diagrams: 01/03/23 06:07 01/03/23 06:07 Labs: Laboratory Results - last 24 hr 01/04/23 06:25: POC Glucose 127 H 01/04/23 08:07: POC Glucose 132 H 01/04/23 11:36: POC Glucose 145 H 01/04/23 15:39: POC Glucose 108 H 01/04/23 22:32: POC Glucose 138 H 01/05/23 06:50: POC Glucose 180 H Micro: Microbiology 01/02/23 23:50 Sputum, Expectorated/Coughed Gram Stain - Final 01/02/23 23:50 Sputum, Expectorated/Coughed Respiratory Culture - Preliminary Streptococcus pneumoniae 01/02/23 23:40 Mucosa - Nasopharyngeal Respiratory Panel (PCR) - Final Physical Exam Const Constitutional Narrative: Decreased plethora of the face and chest. No rash elsewhere. Resp normal respiratory effort, no retractions, no use of accessory muscles and clearto auscultation bilaterally Cardio regular rate, regular rhythm, S1 normal heart sound and S2 normal heart sound GI normal to inspection, nondistended, normoactive bowel sounds, soft to palpation,non-tender and non-distended Assessment & Plan Assessment/Plan (1) COPD exacerbation: PLAN: Acute Hypoxia secondary to Acute Mild on Chronic COPD exacerbation: continue ATC duonebs, PRN albuterol, IV methylprednisolone, HOB, IS parameters, procalcitonin requested, Respiratory panel negative Sputum culture pending (2) Chest pain: PLAN: Chest Pain, suspected more so related to acute COPD exacerbation as noted #1: EKG in ED sinus rhythm with no evidence of ischemia, CXR w/ chronic COPD type changes with no acute cardiopulmonary findings otherwise, initial trop 17. Will place on a monitored bed to assure no acute myocardial infarction with serial cardiac enzymes and EKGs. Again lower suspicion for cardiac etiology butto be cautious we will trend enzymes, obtain FLP in a.m. as well as magnesium level. ASA, NG. If any concerning EKG changes or elevated enzymes arise may consider future stress testing. Troponins negative x3 Atypical. No additional work-up at this time. (3) Desire for detoxification: PLAN: Acute EtOH Withdrawal: Given interest in sobriety, will initiate and continue on protocol with taper course of Phenobarbital, scheduled gabapentin for seizure prophylaxis, as neededBentyl, Vistaril, IV fluids, IV antiemetics, Tylenol as needed for pain. Will consult Case management for assistance for transition to next level of rehabilitation care. Mag, phos pending. Maintain on CIWA protocol concurrently. (4) Peripheral arterial disease: PLAN: Patient had some type of bypass on her right leg. Currently complaining of right toe numbness. Check ABIs. Final read pending but appears to be 0.51 on the right and 0.58 on the left. Patient has had a bypass before. No evidence of any cyanosis or certainly no necrosis at this time. Patient does have a vascular surgeon whom she will be following up with in the future. (5) Rash: PLAN: Patient had erythema on her face as well as her upper chest but not noted elsewhere. Unclear if that was the actual drug rash sure what that actually was. Phenobarbital was discontinued. 01/05: Improved today. It cannot determine if this is due to phenobarbital or not as it had an atypical distribution with involving the upper chest and face. Patient denies any sun exposure. PLAN: Plan Chronic conditions: * Anxiety and depression: We will continue patient home trazodone as well as paroxetine home regimen, would benefit greatly from counseling especially given ongoing alcohol abuse and recent admissions of significant events in her life leading to increased alcohol consumption. * Hypertension: Continue home regimen including lisinopril, amlodipine, metoprolol, PRN hydralazine. * Hyperlipidemia: Cholesterol 225. LDL 114. We will start atorvastatin 20. * Tobacco Abuse: Encouraged cessation, inpatient consultation per RT, NR if desired. * GERD: We will maintain on PPI. DVT prophylaxis: SCDs, Lovenox. Disposition: To inpatient rehab unit on the . Charges/Coding Visit Charges Inpatient E&M: 74714 Subs Hosp L2 01/05/23 4010 <Electronically signed by Joel Sauer DO> Cosigner Signature (if applicable): CC: ~ Signed [facility] Work Phone: 1(636) 789-531802-24-[address] Sauer [facility] January 04, 2023 4:33pm Note Date/Time January 04, 2023 8:14am [facility] Medical Records Department [address] [place] [address] Progress Note - Hospitalist 01/04/23811 MR#: [id number] Acct: [id number] Name: STEVEN KOENIG Rep #:[id number] : 1955 67 From: Joel Sauer DO PCP: Dr. Ulises Hermosillo MD Status:A DM IN Location: [place] [address] Reason for Visit Reason for Visit: Diagnoses Peripheral vascular disease, unspecified (01/02/23) Chronic obstructive pulmonary disease with (acute) exacerbation (01/02/23) Chest pain, unspecified (01/02/23) Subjective Subjective Does still with some paresthesias but feeling somewhat better. Still shortness of breath and just feeling unwell overall Objective Data Objective Data Vital Signs: Vital Signs Temp Pulse Resp BP Pulse Ox O2 Del Method O2 Flow Rate 36.6 C 88 16 140/76 H 98 Nasal Cannula 2 01/04/23 05:50 01/04/23 05:50 01/04/23 05:50 01/04/23 05:50 01/04/23 05:50 01/04/23 05:50 01/04/23 05:50 Oxygen Flow Rate (L/min) 2 Oxygen Delivery Method Nasal Cannula Weight: 59.9 kg Body Mass Index (BMI) 21.9 Intake & Output: Intake and Output for Last 24 Hours 01/02/23 01/03/23 01/04/23 23:59 23:59 23:59 Intake Total 2059 Balance 2059 Medical Nutrition Assessment Dietitian: Malnutrition Criteria Met Start: 01/03/23 10:58 Freq: Status: Active Protocol: Document 01/03/23 10:58 AG (Rec: 01/03/23 10:58 AG [id number]) Nutrition Malnutrition Evidence of Malnutrition Exists Yes Malnutrition (moderate): Acute Illness/Injury Evidenced By Suboptimal Energy Intake ( Moderate),Weight Loss ( Moderate) Clinical Problem Acute Disease or Injury Related Malnutrition Etiology moderate, acute malnutrition related to inadequate oral intake d/t excessive alcohol consumption Signs/Symptoms as evidenced by unintentional 6.7#/5% wt loss x 1 month; estimated PO intake meeting < 75% of estimated energy needs x 1 month Status Active Problem Recommendation Dietitian Recommendations/Changes will adjust diet to regular given evidence of acute malnutrition; continue ensure plus high protein 120mL 4x/day w/ medpass for additional protein/calories if consumed Lab / Micro Data Result Diagrams: 01/03/23 06:07 01/03/23 06:07 Labs: Laboratory Results - last 24 hr 01/03/23 06:07: Differential Comment SCANNED 01/03/23 06:07: Hemoglobin A1c 5.5 01/03/23 17:16: POC Glucose 147 H Micro: Microbiology 01/02/23 23:50 Sputum, Expectorated/Coughed Gram Stain - Final 01/02/23 23:40 Mucosa - Nasopharyngeal Respiratory Panel (PCR) - Final Physical Exam Const alert and no apparent distress Resp normal respiratory effort, no retractions, no use of accessory muscles and clearto auscultation bilaterally Cardio regular rate, regular rhythm, S1 normal heart sound and S2 normal heart sound GI normal to inspection, nondistended, normoactive bowel sounds, soft to palpation,non-tender and non-distended Extremity normal to inspection and full ROM Neuro oriented x3 Psych affect normal Assessment & Plan Assessment/Plan (1) COPD exacerbation: PLAN: Acute Hypoxia secondary to Acute Mild on Chronic COPD exacerbation: continue ATC duonebs, PRN albuterol, IV methylprednisolone, HOB, IS parameters, procalcitonin requested, Respiratory panel negative Sputum culture pending (2) Chest pain: PLAN: Chest Pain, suspected more so related to acute COPD exacerbation as noted #1: EKG in ED sinus rhythm with no evidence of ischemia, CXR w/ chronic COPD type changes with no acute cardiopulmonary findings otherwise, initial trop 17. Will place on a monitored bed to assure no acute myocardial infarction with serial cardiac enzymes and EKGs. Again lower suspicion for cardiac etiology butto be cautious we will trend enzymes, obtain FLP in a.m. as well as magnesium level. ASA, NG. If any concerning EKG changes or elevated enzymes arise may consider future stress testing. Troponins negative x3 Atypical. No additional work-up at this time. (3) Desire for detoxification: PLAN: Acute EtOH Withdrawal: Given interest in sobriety, will initiate and continue on protocol with taper course of Phenobarbital, scheduled gabapentin for seizure prophylaxis, as neededBentyl, Vistaril, IV fluids, IV antiemetics, Tylenol as needed for pain. Will consult Case management for assistance for transition to next level of rehabilitation care. Mag, phos pending. Maintain on CIWA protocol concurrently. (4) Peripheral arterial disease: PLAN: Patient had some type of bypass on her right leg. Currently complaining of right toe numbness. Check ABIs. Final read pending but appears to be 0.51 on the right and 0.58 on the left. Patient has had a bypass before. No evidence of any cyanosis or certainly no necrosis at this time. Patient does have a vascular surgeon whom she will be following up with in the future. PLAN: Plan Chronic conditions: * Anxiety and depression: We will continue patient home trazodone as well as paroxetine home regimen, would benefit greatly from counseling especially given ongoing alcohol abuse and recent admissions of significant events in her life leading to increased alcohol consumption. * Hypertension: Continue home regimen including lisinopril, amlodipine, metoprolol, PRN hydralazine. * Hyperlipidemia: Cholesterol 225. LDL 114. We will start atorvastatin 20. * Tobacco Abuse: Encouraged cessation, inpatient consultation per RT, NR if d esired. * GERD: We will maintain on PPI. DVT prophylaxis: SCDs, Lovenox. Charges/Coding Visit Charges Inpatient E&M: 95399 Subs Hosp L2 01/04/23 1524 <Electronically signed by Joel Sauer DO> Cosigner Signature (if applicable): CC: ~ Signed ADDENDUM by Dr. Joel Sauer DO on 01/04/23 at 1633 Addendum Patient developed erythema over over face and upper chest. Not visualized elsewhere. Unclear if is actual drug reaction. We will discontinue the phenobarbital. 01/04/231632<Electronically signed by Joel Sauer DO> Cosigner Signature (if applicable): cc: ~* Signed [facility] Work Phone: 1(575) 950-877302-23-[address] Sauer [facility] January 03, 2023 3:30pm Note Date/Time January 03, 2023 8:33am [facility] Medical Records Department [address] [place] [address] Progress Note - Hospitalist 01/03/23828 MR#: [id number] Acct: [id number] Name: STEVEN KOENIG Rep #:[id number] : 1955 67 From: Joel Sauer DO PCP: Dr. Ulises Hermosillo MD Status:A DM IN Location: [place] [address] Reason for Visit Reason for Visit: Diagnoses Chronic obstructive pulmonary disease with (acute) exacerbation (01/02/23) Chest pain, unspecified (01/02/23) Subjective Subjective Breathing okay. Has chest pain when she takes in deep respirations. Complains of some paresthesias on her second through fourth toes. Concerning for her because she had a bypass on her right leg and had some similar paresthesias with. Objective Data Objective Data Vital Signs: Vital Signs Temp Pulse Resp BP Pulse Ox O2 Del Method O2 Flow Rate 36.7 C 83 18 122/96 H 95 Nasal Cannula 2 01/03/23 06:53 01/03/23 07:32 01/03/23 07:32 01/03/23 06:53 01/03/23 07:32 01/03/23 07:32 01/03/23 07:32 Oxygen Flow Rate (L/min) 2 Oxygen Delivery Method Nasal Cannula Weight: 58.2 kg Body Mass Index (BMI) 21.4 Lab / Micro Data Result Diagrams: 01/03/23 06:07 01/03/23 06:07 Labs: Laboratory Results - last 24 hr 01/02/23 18:30: Urine Opiates Screen NEGATIVE, Urine Methadone Screen NEGATIVE, Ur Barbiturates Screen NEGATIVE, Ur Phencyclidine Scrn NEGATIVE, Ur AmphetaminesScreen NEGATIVE, MDMA (Ecstasy) Screen NEGATIVE, U Benzodiazepines Scrn NEGATIVE, Urine Cocaine Screen NEGATIVE, U Cannabinoids Screen NEGATIVE, Ur DrugScreen Comment 01/02/23 18:30: Urine Color Yellow, Urine Clarity Clear, Urine pH 6.0, Ur Specific [place] 1.005, Urine Protein Negative, Urine Glucose (UA) Normal, UrineKetones Negative, Urine Occult Blood Negative, Urine Nitrite Negative, Urine Bilirubin Negative, Urine Urobilinogen Normal, Ur Leukocyte Esterase Negative, Urine RBC 0 SEEN, Urine WBC 0 SEEN, Ur Squamous Epith Cells 0-5 SEEN, Urine Bacteria 0 SEEN, Urine Mucus 0 SEEN 01/02/23 19:17: WBC 7.2, RBC 4.42, Hgb 14.0, Hct 43.9, MCV 99.3 H, MCH 31.7, MCHC 31.9 L, RDW Std Deviation 56.6 H, RDW Coeff of Ni 15.6 H, Plt Count 478 H,MPV 9.8, Immature Gran % (Auto) 0.400, Neut % (Auto) 50.1, Lymph % (Auto) 37.2, [place] % (Auto) 9.6, Eos % (Auto) 1.4, Baso % (Auto) 1.3 H, Absolute Neuts (auto) 3.6, Absolute Lymphs (auto) 2.67, Nucleated RBC % 0 01/02/23 19:17: Sodium 143, Potassium 3.6, Chloride 109 H, Carbon Dioxide 27.0, Anion Gap 7, BUN 11, Creatinine 0.80, Estim Creat Clear Calc 61.40, Est GFR (MDRD) Af Amer 91, Est GFR (MDRD) Non-Af 76, BUN/Creatinine Ratio 13.7, Glucose 76, Calcium 8.5, Total Bilirubin 0.10 L, AST 17, ALT 24, Alkaline Phosphatase 63, Troponin I High Sens 17, Total Protein 7.3, Albumin 3.4, Globulin 3.9, Albumin/Globulin Ratio 0.9, Lipase 235 01/02/23 19:17: Ethyl Alcohol 112.0 01/02/23 21:31: Phosphorus 3.6, Magnesium 2.0 01/02/23 21:31: Procalcitonin < 0.01 01/02/23 21:31: Troponin I High Sens 16 01/03/23 00:59: Troponin I High Sens 17 01/03/23 06:07: WBC 6.7, RBC 4.25, Hgb 13.4, Hct 42.1, MCV 99.1 H, MCH 31.5, MCHC 31.8 L, RDW Std Deviation 57.1 H, RDW Coeff of Ni 15.7 H, Plt Count 416, MPV 9.4, Immature Gran % (Auto) 0.700, Neut % (Auto) 92.4 H, Lymph % (Auto) 5.4 L, [place] % (Auto) 0.9, Eos % (Auto) 0.0, Baso % (Auto) 0.6, Absolute Neuts (auto)6.2, Absolute Lymphs (auto) 0.36 L, Nucleated RBC % 0 01/03/23 06:07: Sodium 141, Potassium 4.3, Chloride 112 H, Carbon Dioxide 25.0, Anion Gap 4 L, BUN 10, Creatinine 0.80, Estim Creat Clear Calc 61.40, Est GFR (MDRD) Af Amer 92, Est GFR (MDRD) Non-Af 76, BUN/Creatinine Ratio 12.5, Glucose 236 H, Calcium 8.1 L, Total Bilirubin 0.20, AST 14 L, ALT 19, Alkaline Phosphatase 59, Total Protein 6.5, Albumin 3.0 L, Globulin 3.5, Albumin/GlobulinRatio 0.9, Triglycerides 63, Cholesterol 225 H, LDL Cholesterol 114, VLDL Cholesterol 13, HDL Cholesterol 98 Micro: Microbiology 01/02/23 23:40 Mucosa - Nasopharyngeal Respiratory Panel (PCR) - Final Radiography Diagnostic Testing: Radiology Impression Chest X-Ray 01/02/23 19:00 IMPRESSION: COPD. No acute cardiopulmonary pathology Electronically Signed: Dylan Sethi MD at 21:10 EST Reading Location ID and State: [address] [place] [address] , Service support , Physical Exam Const alert and no apparent distress HEENT head/scalp atraumatic and moist oral mucous membranes Resp normal respiratory effort Resp Narrative: Diminished but clear. Cardio regular rate, regular rhythm, S1 normal heart sound and S2 normal heart sound GI normal to inspection, nondistended, normoactive bowel sounds and soft to palpation Assessment & Plan Assessment/Plan (1) COPD exacerbation: PLAN: Acute Hypoxia secondary to Acute Mild on Chronic COPD exacerbation: Will admit to PCU given #2 complaints to be cautious, maintain on oxygen with wean astolerated to room air, continue ATC duonebs, PRN albuterol, IV methylprednisolone, HOB, IS parameters, procalcitonin requested, full respiratory viral panel requested, sputum Cx if able to provide. (2) Chest pain: PLAN: Chest Pain, suspected more so related to acute COPD exacerbation as noted #1: EKG in ED sinus rhythm with no evidence of ischemia, CXR w/ chronic COPD type changes with no acute cardiopulmonary findings otherwise, initial trop 17. Will place on a monitored bed to assure no acute myocardial infarction with serial cardiac enzymes and EKGs. Again lower suspicion for cardiac etiology butto be cautious we will trend enzymes, obtain FLP in a.m. as well as magnesium level. ASA, NG. If any concerning EKG changes or elevated enzymes arise may consider future stress testing. Troponins negative x3 Atypical. No additional work-up at this time. (3) Desire for detoxification: PLAN: Acute EtOH Withdrawal: Given interest in sobriety, will initiate and continue on protocol with taper course of Phenobarbital, scheduled gabapentin for seizure prophylaxis, as needed Bentyl, Vistaril, IV fluids, IV antiemetics, Tylenol as needed for pain. Will consult Case management for assistance for transition to next level of rehabilitation care. Mag, phos pending. Maintain on CIWA protocol concurrently. (4) Peripheral arterial disease: PLAN: Patient had some type of bypass on her right leg. Currently complaining of right toe numbness. Check ABIs PLAN: Plan Chronic conditions: * Anxiety and depression: We will continue patient home trazodone as well as paroxetine home regimen, would benefit greatly from counseling especially given ongoing alcohol abuse and recent admissions of significant events in her life leading to increased alcohol consumption. * Hypertension: Continue home regimen including lisinopril, amlodipine, metoprolol, PRN hydralazine. * Hyperlipidemia: Cholesterol 225. LDL 114. We will start atorvastatin 20. * Tobacco Abuse: Encouraged cessation, inpatient consultation per RT, NR if desired. * GERD: We will maintain on PPI. DVT prophylaxis: SCDs, Lovenox. Charges/Coding Visit Charges Inpatient E&M: 16170 Subs Hosp L2 01/03/23 1530 <Electronically signed by Joel Sauer DO> Cosigner Signature (if applicable): CC: ~ Signed [facility] Work Phone: 1(125) 538-185102-22-2023 History and physical note Author Dr. Luque [facility] January 02, 2023 9:37pm Note Date/Time January 02, 2023 9:19pm [facility] Medical Records Department [address] [place] [address] History & Physical Exam 01/02/232135 MR#: [id number] Acct: [id number] Name: STEVEN KOENIG Rep #:[id number] : 1955 67 From: Linda Luque MD PCP: Dr. Ulises Hermosillo MD Status:R EG ER Location: ED HPI - General General Date of Admission: 01/02/23 Date of Service: 01/02/23 Chief Complaint: Chest pain, dyspnea, EtOH withdrawal with abuse. HPI Narrative The patient is a 67 y/o F w/ PMHx: COPD, HTN, HLD, Depression and Anxiety, EtOH abuse, Tobacco use who presents to the [facility] ED on 01/02/23 with history of severalcomplaints including chest discomfort starting approximately 10 in the morning ongoing since onset initially reporting having woken up at about 9 AM with onsetat 10 AM described as vague, pressure-like in sensation with dyspnea, worse withexertion with wheezing prompting eventual ED evaluation. Patient also reports ongoing alcohol intake with at least 12 beers a day with last drink at approximately 10 AM currently stating she is interested in detoxification. She notes that she was in rehab years prior but is worsened recently with the of her dog and the loss of her brother to a felony as well as another relative to a fentanyl overdose prompting her to desire to become clean and sober. Patient currently reports mild tremors, nausea and some tactile disturbances work-up in the ED included T97.6, heart rate 99, BP 127/69, respiratory rate 16,initially 95% on room air however de-escalated to 87% on room air eventually placed on 2 L nasal cannula noted to be 95%, CBC with WC 7.2, hemoglobin 14, platelet 478 without marked shift, CMP with chloride 109, T. bili 0.10 otherwisePaddock profile not marked appearing, lipase 235, troponin 17, urinalysis with no obvious evidence of UTI, urine drug screen negative, ethyl alcohol level 112,chest x-ray with COPD type changes with no acute cardiopulmonary findings otherwise, EKG with sinus rhythm with no acute evidence of ischemia. [facility] Medical History Alcohol abuse Anxiety and depression COPD (chronic obstructive pulmonary disease) HLD (hyperlipidemia) Hypertension Tobacco use Home Medications albuterol sulfate 90 mcg/actuation aerosol inhaler (Ventolin HFA) 2 puff inhalation Q2H PRN Wheezing ##1 05/25/14 [Rx Last Taken 02/21/18] Omeprazole [Prilosec] 40 mg PO DAILY ACID REFLUX 02/01/17 [History Last Taken 02/21/18] metoprolol tartrate 25 mg tablet 25 mg PO BID BLOOD PRESSURE 02/01/17 [History Last Taken 02/21/18] paroxetine HCl 30 mg tablet (Paxil) 30 mg PO DAILY MENTAL HEALTH 02/01/17 [History Last Taken 02/21/18] trazodone 100 mg tablet 100 mg PO QHS SLEEP 02/01/17 [History Last Taken Unknown] amlodipine 5 mg tablet 5 mg PO DAILY BLOOD PRESSURE 07/29/17 [History Last Taken 02/21/18] hydroxyzine pamoate 50 mg capsule (Vistaril) 50 mg PO TID PRN PRN Anxiety 07/29/17 [History Last Taken Unknown] lisinopril 40 mg tablet 40 mg PO DAILY BLOOD PRESSURE 07/29/17 [History Last Taken 02/21/18] Allergy/AdvReac Type Severity Reaction Status Date / Time No Known Allergies Allergy Verified 07/29/17 15:15 Family History (Updated 01/02/23 @ 21:[address] Linda Luque MD) Mother Liver cancer Father Lung cancer Family History no significant family his Surgical History (Updated 01/02/23 @ 21:[address] Linda Lquue MD) History of cervical spinal surgery History of tonsillectomy S/P appendectomy S/P cholecystectomy Social History (Updated 01/02/23 @ 21:[address] Linda Luque MD) household members: spouse Smoking Status: Current every day smoker tobacco type: cigarettes Smoking packsper day: 1 Smoking cigarettes per day: 20.0 alcohol intake: current alcohol intake frequency: 3 or more drinks per day details: 12-14 beers daily. substance use type: does not use ROS ROS Narrative Admission Review of Systems: CONSTITUTIONAL: No weight loss, fever, chills, + weakness or fatigue. HEENT: + Congestion. Eyes: No visual loss, blurred vision, double vision or yellow sclerae. Ears, Nose, Throat: No hearing loss, sneezing, runny nose or sore throat. SKIN: No rash or itching, lesions, wounds. CARDIOVASCULAR: + chest pain, chest pressure or chest discomfort, No palpitations, edema, orthopnea, syncopal events. RESPIRATORY:+ shortness of breath, cough without marked sputum, wheezing, No hemoptysis. GASTROINTESTINAL: + anorexia, nausea, No vomiting or diarrhea, abdominal pain, melena, BRBPR. GENITOURINARY: No dysuria, frequency, urgency or retention. NEUROLOGICAL: + Mild tremors, tactile disturbances. No headache, dizziness, syncope, paralysis, ataxia, numbness or tingling in the extremities, focal weakness, change in bowel or bladder control, seizure. MUSCULOSKELETAL: + muscle, back pain, joint pain or stiffness. HEMATOLOGIC: No anemia, bleeding or bruising. LYMPHATICS: No enlarged nodes. No history of splenectomy. PSYCHIATRIC: + history of depression or anxiety. ENDOCRINOLOGIC: No reports of sweating, cold or heat intolerance. No polyuria orpolydipsia. ALLERGIES: No history of asthma, hives, eczema or rhinitis. Vital Signs Vital Signs Vital Signs: 01/02/23 17:54 01/02/23 18:52 01/02/23 19:00 Temperature 97.6 F L 98.5 F Temperature Source Temporal Temporal Pulse Rate 99 90 Respiratory Rate 16 18 Respiratory Effort Labored Accessory Muscle Use Blood Pressure 127/69 H 113/72 Blood Pressure Mean 88 85 Pulse Ox 95 Oxygen Delivery Method Room Air Room Air Room Air Oxygen Flow Rate (L/min) 01/02/23 19:18 01/02/23 19:25 01/02/23 19:25 Temperature Temperature Source Pulse Rate 101 H Respiratory Rate 17 Respiratory Effort Blood Pressure 114/71 Blood Pressure Mean 85 Pulse Ox 91 87 95 Oxygen Delivery Method Room Air Room Air Nasal Cannula Oxygen Flow Rate (L/min) 2 01/02/23 20:00 01/02/23 21:00 Temperature Temperature Source Pulse Rate 95 94 Respiratory Rate 23 H 22 H Respiratory Effort Blood Pressure 122/88 H Blood Pressure Mean 99 Pulse Ox 98 95 Oxygen Delivery Method Room Air Nasal Cannula Oxygen Flow Rate (L/min) 2 Weight Weight: 131 lb 3.2 oz Body Mass Index (BMI) 21.8 Physical Exam Narrative Physical Examination: General: Awake, alert, oriented x 3 and cooperative, seated upright in ED bed, fatigued, coughing during evaluation. Skin: Normal color, normal turgor, no icterus, no cyanosis. HEENT: AT/NC, EOMI, PERRLA, mildly dry MM, no carotid bruits or JVD noted. Lungs: Significantly diminished especially in the posterior randle, anterior field expiratory wheezing diffusely, coughing elicited with deep inspiratory effort, no rhonchi or rales, mildly increased respiratory rate but no distress. Heart: Currently regular rate and rhythm; no gallop, rub audible. Abdomen: Soft, NTTP, ND, normal BS, + mild HM. Extremities: No cyanosis, clubbing, or edema. Neurological: Patient awake, alert, oriented as noted, cognitive function intact; pupils equally reactive to light and accommodation, cranial nerves II-XII grossly normal, moving all 4 extremities, no focal deficits, strength moderately globally Tere secondary to acute presentation. Psychiatric: Affect appears fatigued, no acute evidence of depressive or anxietyfeelings but does have underlying history. Results Lab / Micro Data Result Diagrams: 01/02/23 19:17 01/02/23 19:17 Labs: Laboratory Results - last 24 hr 01/02/23 18:30: Urine Opiates Screen NEGATIVE, Urine Methadone Screen NEGATIVE, Ur Barbiturates Screen NEGATIVE, Ur Phencyclidine Scrn NEGATIVE, Ur AmphetaminesScreen NEGATIVE, MDMA (Ecstasy) Screen NEGATIVE, U Benzodiazepines Scrn NEGATIVE, Urine Cocaine Screen NEGATIVE, U Cannabinoids Screen NEGATIVE, Ur DrugScreen Comment 01/02/23 18:30: Urine Color Yellow, Urine Clarity Clear, Urine pH 6.0, Ur Specific [place] 1.005, Urine Protein Negative, Urine Glucose (UA) Normal, Urine Ketones Negative, Urine Occult Blood Negative, Urine Nitrite Negative, Urine Bilirubin Negative, Urine Urobilinogen Normal, Ur Leukocyte Esterase Negative, Urine RBC 0 SEEN, Urine WBC 0 SEEN, Ur Squamous Epith Cells 0-5 SEEN, Urine Bacteria 0 SEEN, Urine Mucus 0 SEEN 01/02/23 19:17: WBC 7.2, RBC 4.42, Hgb 14.0, Hct 43.9, MCV 99.3 H, MCH 31.7, MCHC 31.9 L, RDW Std Deviation 56.6 H, RDW Coeff of Ni 15.6 H, Plt Count 478 H,MPV 9.8, Immature Gran % (Auto) 0.400, Neut % (Auto) 50.1, Lymph % (Auto) 37.2, [place] % (Auto) 9.6, Eos % (Auto) 1.4, Baso % (Auto) 1.3 H, Absolute Neuts (auto) 3.6, Absolute Lymphs (auto) 2.67, Nucleated RBC % 0 01/02/23 19:17: Sodium 143, Potassium 3.6, Chloride 109 H, Carbon Dioxide 27.0, Anion Gap 7, BUN 11, Creatinine 0.80, Estim Creat Clear Calc 61.40, Est GFR (MDRD) Af Amer 91, Est GFR (MDRD) Non-Af 76, BUN/Creatinine Ratio 13.7, Glucose 76, Calcium 8.5, Total Bilirubin 0.10 L, AST 17, ALT 24, Alkaline Phosphatase 63, Troponin I High Sens 17, Total Protein 7.3, Albumin 3.4, Globulin 3.9, Albumin/Globulin Ratio 0.9, Lipase 235 01/02/23 19:17: Ethyl Alcohol 112.0 Radiology Impression Chest X-Ray 01/02/23 19:00 IMPRESSION: COPD. No acute cardiopulmonary pathology Electronically Signed: Dylan Sethi MD at 21:10 EST Reading Location ID and State: [facility] / [place] , Service support , Assessment & Plan Assessment/Plan (1) Chest pain: (2) COPD exacerbation: (3) Desire for detoxification: PLAN: Plan The patient is a 67 y/o F w/ PMHx: COPD, HTN, HLD, Depression and Anxiety, EtOH abuse, Tobacco use who presents to the [facility] ED on 01/02/23 with history of severalcomplaints including chest discomfort starting approximately 10 in the morning ongoing since onset initially reporting having woken up at about 9 AM with onsetat 10 AM described as vague, pressure-like in sensation with dyspnea, worse withexertion with wheezing prompting eventual ED evaluation. #1. Acute Hypoxia secondary to Acute Mild on Chronic COPD exacerbation: Will admit to PCU given #2 complaints to be cautious, maintain on oxygen with wean astolerated to room air, continue ATC duonebs, PRN albuterol, IV methylprednisolone, HOB, IS parameters, procalcitonin requested, full respiratory viral panel requested, sputum Cx if able to provide. #2. Chest Pain, suspected more so related to acute COPD exacerbation as noted #1: EKG in ED sinus rhythm with no evidence of ischemia, CXR w/ chronic COPD type changes with no acute cardiopulmonary findings otherwise, initial trop 17. Will place on a monitored bed to assure no acute myocardial infarction with serial cardiac enzymes and EKGs. Again lower suspicion for cardiac etiology butto be cautious we will trend enzymes, obtain FLP in a.m. as well as magnesium level. ASA, NG. If any concerning EKG changes or elevated enzymes arise may consider future stress testing. #3. Acute EtOH Withdrawal: Given interest in sobriety, will initiate and continue on protocol with taper course of Phenobarbital, scheduled gabapentin for seizure prophylaxis, as needed Bentyl, Vistaril, IV fluids, IV antiemetics, Tylenol as needed for pain. Will consult Case management for assistance for transition to next level of rehabilitation care. Mag, phos pending. Maintain on CIWA protocol concurrently. #4. Anxiety and depression: We will continue patient home trazodone as well as paroxetine home regimen, would benefit greatly from counseling especially given ongoing alcohol abuse and recent admissions of significant events in her life leading to increased alcohol consumption. #5. Hypertension: Continue home regimen including lisinopril, amlodipine, metoprolol, PRN hydralazine. #6. Hyperlipidemia: Not on statin therapy, FLP in AM given chest pain complaints and evaluation as noted. #7. Tobacco Abuse: Encouraged cessation, inpatient consultation per RT, NR if desired. #8. GERD: We will maintain on PPI. #9. DVT prophylaxis: SCDs, Lovenox. Admission Evaluation Time spent evaluating chart, patient history, patient evaluation, care planning and discussion with specialists: 76 minutes. Charges/Coding Visit Charges Inpatient E&M: 17371 Init Hosp L3 01/02/232136 <Electronically signed by Linda Luque MD> Cosigner Signature (if applicable): CC: Dr. Linda Luque MD; Dr. Ulises Hermosillo MD~ Signed [facility] Work Phone: 1(276) 122-651102-22-[address] Koroma [facility] January 02, 2023 9:25pm Note Date/Time January 02, 2023 6:55pm [facility] Medical Records Department [address] [place] [address] Emergency Department Summary 01/02/23 MR#: [id number] Acct: [id number] Name: STEVEN KOENIG Rep #:[id number] : 1955 67 From: Miah Koroma MD PCP: Dr. Ulises Hermosillo MD Status:R EG ER Location: ED HPI History of Present Illness Chief Complaint: Chest Pain Narrative Narrative: 67-year-old female past medical history of chronic obstructive pulmonary disease, hypertension, presents with multiple somatic complaints including chestpain that began at 10:00 this morning, at least 9 hours ago. She states she awoke this morning at around 9:00 in the morning and at 10:00 began having chestpain. She is nondescript with this. She also states that she has been having problems breathing with dyspnea on exertion additionally for weeks. She is a smoker. Quite frankly, she states that she is really here because she wants detox from alcohol. She drinks at least 12 beers a day, and her last drink being this morning after she got up at around 10:00 she states she had "a few beers". She last went through rehabilitation years ago, but feels like she needs detox and rehab today because she recently had her dog , and she lost her brother to arson and another relative to fentanyl overdose so she feels likeshe needs to "get clean". PFSH PFSH Medical History Alcohol abuse Anxiety and depression COPD (chronic obstructive pulmonary disease) HLD (hyperlipidemia) Hypertension Tobacco use Home Medications albuterol sulfate 90 mcg/actuation aerosol inhaler (Ventolin HFA) 2 puff inhalation Q2H PRN Wheezing ##1 05/25/14 [Rx Last Taken 02/21/18] Omeprazole [Prilosec] 40 mg PO DAILY ACID REFLUX 02/01/17 [History Last Taken 02/21/18] metoprolol tartrate 25 mg tablet 25 mg PO BID BLOOD PRESSURE 02/01/17 [History Last Taken 02/21/18] paroxetine HCl 30 mg tablet (Paxil) 30 mg PO DAILY MENTAL HEALTH 02/01/17 [History Last Taken 02/21/18] trazodone 100 mg tablet 100 mg PO QHS SLEEP 02/01/17 [History Last Taken Unknown] amlodipine 5 mg tablet 5 mg PO DAILY BLOOD PRESSURE 07/29/17 [History Last Taken 02/21/18] hydroxyzine pamoate 50 mg capsule (Vistaril) 50 mg PO TID PRN PRN Anxiety 07/29/17 [History Last Taken Unknown] lisinopril 40 mg tablet 40 mg PO DAILY BLOOD PRESSURE 07/29/17 [History Last Taken 02/21/18] Allergy/AdvReac Type Severity Reaction Status Date / Time No Known Allergies Allergy Verified 07/29/17 15:15 Family History (Updated 01/02/23 @ 21:[address] Linda Luque MD) Mother Liver cancer Father Lung cancer Family History no significant family his Surgical History (Updated 01/02/23 @ 21:[address] Linda Luque MD) History of cervical spinal surgery History of tonsillectomy S/P appendectomy S/P cholecystectomy Social History (Updated 01/02/23 @ 21:[address] Linda Luque MD) household members: spouse Smoking Status: Current every day smoker tobacco type: cigarettes alcohol intake: current alcohol intake frequency: 3 or more drinks per day details: 12-14 beers daily. substance use type: does not use ROS ROS ED ROS Narrative Constitutional: No fever, no chills. HEENT: No sore throat. No neck pain. No loss of vision. No rhinorrhea. Cardiovascular: Positive chest pain. No palpitations. No pedal edema. Respiratory: No cough, positive increasing dyspnea on exertion and shortness of breath. Abdominal: No abdominal pain. No nausea. No vomiting. Genitourinary: No dysuria. No hematuria. Musculoskeletal: No myalgias. No arthralgias. Neurologic: No headaches. No dizziness. No lightheadedness. Skin: No rash. No change in color. Psychiatric: No depression. No anxiety. EXAM Physical Exam Narrative Exam Narrative: Afebrile. Vital signs noted. HEENT: Normocephalic. Atraumatic. PERRL, EOMI. Neck soft and supple. No pointtenderness or step off. Cardiovascular: Regular rate and rhythm. No murmurs, rubs, or gallops appreciated. Respiratory: No tachypnea. Lungs clear to auscultation bilaterally. No wheezing or accessory muscle use. This was even after patient ambulated back from the bathroom. Gastrointestinal: Abdomen soft, nontender, with normoactive bowel sounds. No rebound or guarding. Neurological: Awake. Alert. Nonfocal, nonlateralizing. Skin: No rash. Normal color. No pallor. Musculoskeletal: No pedal edema. Full range of motion extremities. Const Vital Signs: 01/02/23 17:54 01/02/23 18:52 01/02/23 19:00 Temperature 97.6 F L 98.5 F Temperature Source Temporal Temporal Pulse Rate 99 90 Respiratory Rate 16 18 Respiratory Effort Labored Accessory Muscle Use Blood Pressure 127/69 H 113/72 Blood Pressure Mean 88 85 Pulse Ox 95 Oxygen Delivery Method Room Air Room Air Room Air Oxygen Flow Rate (L/min) 01/02/23 19:18 01/02/23 19:25 01/02/23 19:25 Temperature Temperature Source Pulse Rate 101 H Respiratory Rate 17 Respiratory Effort Blood Pressure 114/71 Blood Pressure Mean 85 Pulse Ox 91 87 95 Oxygen Delivery Method Room Air Room Air Nasal Cannula Oxygen Flow Rate (L/min) 2 01/02/23 20:00 01/02/23 21:00 Temperature Temperature Source Pulse Rate 95 94 Respiratory Rate 23 H 22 H Respiratory Effort Blood Pressure 122/88 H Blood Pressure Mean 99 Pulse Ox 98 95 Oxygen Delivery Method Room Air Nasal Cannula Oxygen Flow Rate (L/min) 2 MDM MDM MDM Narrative Medical decision making narrative: Medical screening labs were obtained. EKG was obtained to rule out STEMI, and interpreted by myself, and it demonstrates normal sinus rhythm at 90 bpm withoutectopy or acute ST changes. No STEMI. I will obtain a troponin, which will be greater than a 6-hour troponin for her chest pain as medical screening labs. I will also obtain a CBC, CMP, UA, and lipase as she is an alcoholic and I will rule out pancreatitis as medical screening. I will also obtain alcohol level and urine for drugs of abuse. I do not feel test is indicated as she is 67 years old and postmenopausal. I do feel that if she can be ruled out witha negative troponin and that her medical screening labs are negative, that she could be admitted for detox. I reviewed her laboratory work. She has a normal white count of 7.2, hemoglobinnormal at 14.0, platelet count elevated at 478 which I think is nonspecific. Urinalysis is negative for infection, negative ketones. CMP is remarkable for chloride of 109. High-sensitivity troponin 17. LFTs are normal. Lipase is also normal in the 200s. Blood alcohol level is slightly elevated at 112. Chest x-ray interpreted by myself shows no evidence of acute pneumonia or pneumothorax. I reviewed the radiology report which confirms my interpretation. EKG interpreted by myself demonstrates normal sinus rhythm at 90 bpm without ectopy or acute ST changes. Given that she has had chest pain all day with a negative troponin and EKG which does not show evidence of STEMI, I do feel that she is medically cleared for detox. She is currently resting comfortably. Of note, she was placed on 2 L of nasal cannula oxygen because she usually wears 2 L at home and she had a brief episode of hypoxia because she was not on her homeoxygen. Patient will be discussed with Dr. Luque for admission for detox from alcohol. Patient is in stable condition. Lab Data Attestation: I reviewed the patient's lab results. Labs: Laboratory Results - last 24 hr 01/02/23 01/02/23 01/02/23 18:30 18:30 19:17 WBC 7.2 RBC 4.42 Hgb 14.0 Hct 43.9 MCV 99.3 H MCH 31.7 MCHC 31.9 L RDW Std Deviation 56.6 H RDW Coeff of Ni 15.6 H Plt Count 478 H MPV 9.8 Immature Gran % (Auto) 0.400 Neut % (Auto) 50.1 Lymph % (Auto) 37.2 [place] % (Auto) 9.6 Eos % (Auto) 1.4 Baso % (Auto) 1.3 H Absolute Neuts (auto) 3.6 Absolute Lymphs (auto) 2.67 Nucleated RBC % 0 Sodium Potassium Chloride Carbon Dioxide Anion Gap BUN Creatinine Estim Creat Clear Calc Est GFR (MDRD) Af Amer Est GFR (MDRD) Non-Af BUN/Creatinine Ratio Glucose Calcium Total Bilirubin AST ALT Alkaline Phosphatase Troponin I High Sens Total Protein Albumin Globulin Albumin/Globulin Ratio Lipase Urine Color Yellow Urine Clarity Clear Urine pH 6.0 Ur Specific [place] 1.005 Urine Protein Negative Urine Glucose (UA) Normal Urine Ketones Negative Urine Occult Blood Negative Urine Nitrite Negative Urine Bilirubin Negative Urine Urobilinogen Normal Ur Leukocyte Esterase Negative Urine RBC 0 SEEN Urine WBC 0 SEEN Ur Squamous Epith Cells 0-5 SEEN Urine Bacteria 0 SEEN Urine Mucus 0 SEEN Urine Opiates Screen NEGATIVE Urine Methadone Screen NEGATIVE Ur Barbiturates Screen NEGATIVE Ur Phencyclidine Scrn NEGATIVE Ur Amphetamines Screen NEGATIVE MDMA (Ecstasy) Screen NEGATIVE U Benzodiazepines Scrn NEGATIVE Urine Cocaine Screen NEGATIVE U Cannabinoids Screen NEGATIVE Ur Drug Screen Comment Ethyl Alcohol 01/02/23 01/02/23 19:17 19:17 WBC RBC Hgb Hct MCV MCH MCHC RDW Std Deviation RDW Coeff of Ni Plt Count MPV Immature Gran % (Auto) Neut % (Auto) Lymph % (Auto) [place] % (Auto) Eos % (Auto) Baso % (Auto) Absolute Neuts (auto) Absolute Lymphs (auto) Nucleated RBC % Sodium 143 Potassium 3.6 Chloride 109 H Carbon Dioxide 27.0 Anion Gap 7 BUN 11 Creatinine 0.80 Estim Creat Clear Calc 61.40 Est GFR (MDRD) Af Amer 91 Est GFR (MDRD) Non-Af 76 BUN/Creatinine Ratio 13.7 Glucose 76 Calcium 8.5 Total Bilirubin 0.10 L AST 17 ALT 24 Alkaline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 severe, it can interfere with daily life. In some cases, you may not even be aware of what it is you re anxious about. There may also be a genetic link or it may be a learned behavior in the home. Both psychological and physical triggers cause stress reaction. It's often a response to fear or emotional stress, real or imagined. This stress may come from home, family, work, or social relationships. During an anxiety reaction, you may feel: Helpless Nervous Depressed Irritable Your body may show signs of anxiety in many ways. You may experience: Dry mouth Shakiness Dizziness Weakness Trouble breathing Breathing fast (hyperventilating) Chest pressure Sweating Headache Nausea Diarrhea Tiredness Inability to sleep Sexual problems Home care Try to locate the sources of stress in your life. They may not be obvious. These may include: oDaily hassles of life (such as traffic jams, missed appointments, or car troubles) oMajor life changes, both good (new baby or job promotion) and bad [...] break when you feel overloaded). Unfortunately, many stressful situations can't be avoided. It is necessary to learn how to better manage stress. There are many proven methods that will reduce your anxiety. These include simple things like exercise, good nutrition, and adequate rest. Also, there are certain techniques that are helpful: oRelaxation oBreathing exercises oVisualization oBiofeedback oMeditation For more information about this, consult your healthcare provider or go to a local bookstore and review the many books and tapes available on this subject. Follow-up care If you feel that your anxiety is not responding to self-help measures, contact [...] worse Severe headache not relieved by rest and mild pain reliever [phone] [employer]. [address] [place] [address], [place] [address]. All rights reserved. This information is not intended as a substitute for professional medical care. Always follow yourhealthcare professional's instructions. Follow Up Care 12/23/2022 13:42:18 With:ULISES HERMOSILLO MD [facility] [address] [facility] [place] [id number]- When:2-4 days Comments:Return to ED if symptoms worsen [facility] 02-12-2023 Note Discharge Instructions Thank you for allowing [facility] to assist you with your healthcare needs. The following is importantdischarge information regarding your hospital visit. Diagnosis from Today's Visit Anxiety reaction Acute exacerbation of COPD SOB - Shortness of breath What to Do Next Instructions from Your Care Team No qualifying data available. Post Acute Orders No qualifying data available. You Need to Schedule the Following Appointments Follow Up with ULISES HERMOSILLO MD When Within 2-4 days Why: Return to ED if symptoms worsen Where: [address] [facility] [place] [id number]- Allergies NKA Medications Please ask your primary doctor or pharmacist before taking any other medication not listed, including over the counter drugs, herbal medications, vitamins and or supplements as they may interact withyour home medications. What How Much When Why Instructions Last Dose New LORazepam (Ativan 0.5 mg oral tablet) 1 tab(s) by mouth Every 8 hours as needed for as needed for anxiety Anxiety reaction Acute exacerbation of COPD Duration: 3 Days Printed Prescription New predniSONE (predniSONE 50 mg oral tablet) 1 tab(s) by mouth [...] tab(s) by mouth Every day Unchanged fluticasone/ umeclidinium/ vilanterol (Trelegy Ellipta 200 mcg-62.5 mcg-25 mcg/ inh inhalation powder) 1 puff(s) by inhalation Once a day at the same time every day Unchanged isosorbide mononitrate (isosorbide mononitrate 30 [...] your ankles gets worse Dizziness or weakness [phone] [employer]. [address] [place] [address], [place] [address]. All rights reserved. This information is not intended as a substitute for professional medical care. Always follow yourhealthcare professional's instructions. Anxiety Reaction Anxiety is the feeling we all get when we think something bad might happen. It is a normal responseto stress and usually causes only a mild reaction. When anxiety becomes more severe, it can interfere with daily life. In some cases, you may not even be aware of what it is you re anxious about. There may also be a genetic link or it may be a learned behavior in the home. Both psychological and physical triggers cause stress reaction. It's often a response to fear or emotional stress, real or imagined. This stress may come from home, family, work, or social relationships. During an anxiety reaction, you may feel: Helpless Nervous Depressed Irritable Your body may show signs of anxiety in many ways. You may experience: Dry mouth Shakiness Dizziness Weakness Trouble breathing Breathing fast (hyperventilating) Chest pressure Sweating Headache Nausea Diarrhea Tiredness Inability to sleep Sexual problems Home care Try to locate the sources of stress in your life. They may not be obvious. These may include: oDaily hassles of life (such as traffic jams, missed appointments, or car troubles) oMajor life changes, both good (new baby or job promotion) and bad [...] break when you feel overloaded). Unfortunately, many stressful situations can't be avoided. It is necessary to learn how to better manage stress. There are many proven methods that will reduce your anxiety. These include simple things like exercise, good nutrition, and adequate rest. Also, there are certain techniques that are helpful: oRelaxation oBreathing exercises oVisualization oBiofeedback oMeditation For more information about this, consult your healthcare provider or go to a local bookstore and review the many books and tapes available on this subject. Follow-up care If you feel that your anxiety is not responding to self-help measures, contact [...] worse Severe headache not relieved by rest and mild pain reliever [phone] [employer]. [address] [place] [address]. All rights reserved. This information is not intended as a substitute for professional medical care. Always follow yourhealthcare professional's instructions. Additional Information VACCINATE! IT SAVES LIVES! Members of the community who have not yet received the COVID-19 vaccine and would like to receive it can visit one of [facility] vaccine clinics. There are many vaccine clinic locations within the [facility]. For locations and available times, please visit [email or web address]. It is important to note that some COVID mobile vaccine clinics are held outdoors and may be canceled in rainy orstormy conditions. To learn more about pediatric vaccinations (ages 5-11), we invite you to visit the [facility] webpage. [email or web address] [email or web address] learn more about the COVID-19 vaccine, we invite you to visit the [facility] website for a list of frequently asked questions. [email or web address] [facility] Patient Portal Access Instructions: Stay connected with your healthcare team and access your personal medical information anytime with the [facility] Patient Portal. If you would like a full copy of your medical records please contact the [facility] Medical Records Department Saturday through Saturday between 8a.m. and 4:30p.m. Please follow the directions below to access the portal: 1.Access the email account you provided upon registration to the [facility].2.Look for an invitation email from [facility].3.Open the email and access the invitation link: Accept Invitation to [facility]4.Fill in the required randle to create your account. Sign into [email or web address] with your username and password that you [...] you will allow to register on the [facility] Patient Portal for access to your information. You can also access the [facility] Patient Portal on the [employer] larissa. Simply click on "Health Records" under "HealthData" and then click on the [facility] logo. HOW TO SAFELY DISPOSE OF PRESCRIPTION MEDICATIONS Please use one of the following methods to safely dispose of your unused medications. 1.Use a drug disposal kit: the drug disposal pouch allows you to safely discard your old and unuseddrugs. Ask your nurse to give you one when you are discharged.2.Visit a local take-back location: Many local pharmacies and police departments have programs that collect old and unwanted prescriptiondrugs. Call your local pharmacy or go to http://bit.Pluto.TV/2T8Ji0i to find one close to you.3.Make use of household items: Use cat litter or old coffee grounds to dispose medications if other options arenot available. Mix your drugs with these household products, seal them in an airtight container andthrow it into the garbage. Call [facility]: [phone] to be sure your drugs can be [...] drowsiness, such as benzodiazepines, also known as benzos,including diazepam and alprazolam, muscle relaxants or sleep aids. Never sell or share prescriptionopioids. This is illegal. Store opioids in a secure place and out of reach of others (including children, family, friends and visitors). The last page(s) of this document has been signed and retained as a CHART COPY Signatures Patient Education Materials COPD Flare Anxiety Reaction Medication Leaflets My discharge plan and instructions have been reviewed and explained to me and IBRADEN MICHELE L understand my current condition and have read and understand these discharge instructions. I have received a written copy of the plan/instructions. If I have questions, I am aware that I should contact my doctor. 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 The aorta is atherosclerotic. There is no focal consolidation, pleural effusion, or pneumothorax. No acute osseous abnormality. There are remote right-sided rib fractures. Surgical hardware seen in the lower cervical spine. IMPRESSION: No acute radiographic findings. Interpreted by: Claude Campuzano MD Preliminary Report By: Claude Campuzano MD Electronically signed By Claude Campuzano MD Dictated Date: 12/23/2022 2:42:09 PM Prelim Date: 12/23/2022 2:43:01 PM Sign Date: 12/23/2022 2:43:01 PM Ordering Provider: JOSE ROBERTO [facility]02-12-2023 Note ORIGINAL EXAMINATION: ONE XRAY VIEW OF THE CHEST12/23/2022 2:32 pm CHEST ONE VIEW AP/PA COMPARISON: 10/26/2022 HISTORY: ORDERING SYSTEM PROVIDED HISTORY: Reason for Exam: SOB/cough/fever FINDINGS: The cardiomediastinal contours are normal. The aorta is atherosclerotic. There is no focal consolidation, pleural effusion, or pneumothorax. No acute osseous abnormality. There are remote right-sided rib fractures. Surgical hardware seen in the lower cervical spine. IMPRESSION: No acute radiographic findings. Interpreted by: Claude Campuzano MD Preliminary Report By: Claude Campuzano MD Electronically signed By Claude Campuzano MD Dictated Date: 12/23/2022 2:42:09 PM Prelim Date: 12/23/2022 2:43:01 PM Sign Date: 12/23/2022 2:43:01 PM Ordering Provider: [facility]02-03-2023 Miscellaneous Notes* Telephone Encounter - Jasmine Ramos PETERSON - 12/14/2022 11:42 AM EST Last seen pcp 09/05/22 Next appt 01/01/23. * Telephone Encounter - Aurea Jasonbridgette [facility] - 12/14/2022 11:36 AM EST Patient has been identified by name and date of : Yes Requested Prescriptions Pending Prescriptions Disp Refills traZODone (DESYREL) 100 mg tablet 60 tablet 5 Sig: Take 2 tablets by mouth daily at bedtime. RX INSTRUCTIONS: Please fill today if possible, patient is out of this medication Patient would like a call to advise RX has been approved and sent to the pharmacy. Call patient at [phone] (cell) Aurea Jasonbridgette [facility] documented in this encounterToledo Hospital01-16-2023 NoteHNO ID: [id number] Author: Isauro Asher MD Service: ? Author Type: Physician Type: Progress Notes Filed: 11/26/2022 2:01 PM Note Text: . Respiratory [place] Note Patient name: Steven Koenig PCP: Ulises Hermosillo MD CC: Hemoptysis HPI: Steven Koenig 67 year old female current heavy smoker, over 100 pack years with PMH significant for bipolar affective disorder, h/o alcohol abuse, GERD, PAD, HLD, CAD s/p stent, severe COPD (FEV1 0.83 L 36%), oxygen dependence, previously following in [facility], new to [place]. Recent admission at [facility] in [place] for AECOPD. CXR reported as normal. Discharged with a course of doxycycline and prednisone. She states she was doing well until [...] for her coronary stent. Denies past bleeding problems. Current respiratory symptoms of dyspnea on exertion, wheezing. No chest pain or current cough. DME: [facility] DATA: PFT 05/2022: Review of spirometry shows severe obstruction without significant improvement post bronchodilators and moderate reduction in diffusing capacity Labs: Laboratory testing at [facility], normal CBC and platelet count. Negative COVID and influenza Imaging / Diagnostic Studies: DATE OF EXAM: Jul 26 2022 4:27PM [facility] 0562 - CT LUNG SCREEN WO IVCON / PROCEDURE REASON: multiple diagnoses CLINICAL HISTORY: Lung cancer LDCT screening ? [...] None. Other findings: There is severe centrilobular emphysema with diffuse bronchial wall thickening. No focal consolidation. Linear atelectasis at the lung bases. The imaged thyroid gland is unremarkable. No thoracic lymphadenopathy. There are atherosclerotic calcifications in the thoracic aorta. The thoracic aorta and main pulmonary artery are normal in caliber. The cardiac chambers are normal in size. There are triple-vessel coronary artery calcifications noting LAD stents. No pericardial [...] reviewed the images and agree with the above assessment PAST MEDICAL HISTORY Diagnosis Date Acute pancreatitis 2010 AnthonyAnisha Alcohol use disorder 01/18/2016 [facility] Anxiety 12/14/2015 Bipolar affective disorder, currently active ([facility]) 01/18/2016 Dr. Angie [facility] Chronic bronchitis ([facility]) 07/26/2016 Closed skull fracture ([facility]) 1994 [facility] Coronary artery disease DDD (degenerative disc disease), cervical Endometriosis 2007 Essential hypertension 12/14/2015 GERD (gastroesophageal reflux disease) 03/13/2019 History of colon polyps History of gastric ulcer 12/14/2015 HLD (hyperlipidemia) Injury of left facial nerve 1994 PAD (peripheral artery disease) ([facility]) 09/28/2019 Recurrent major depression in partial remission ([facility]) 12/14/2015 S/P drug eluting coronary stent placement 08/25/2021 LAD and Dg2 Spinal stenosis ALLERGIES No Known Allergies albuterol HFA (VENTOLIN HFA) 90 mcg/actuation inhaler Inhale 2 Puffs as instructed every 6 hours as needed for wheezing/shortness of breath. crxkiivjpbz-naolfdeul-ilxabone (TRELEGY ELLIPTA) 200-62.5-25 mcg inhalation powder Inhale 1 Puff as instructed once daily. predniSONE (DELTASONE) 10 mg tablet Take two daily for 5 days then one daily for 10 days nystatin (MYCOSTATIN) 100,000 unit/mL suspension Take 5 [...] (PATADAY ONCE DAILY RELIEF) 0.2 % drop (more content not included)...[facility]01-16-2023 History of Present illness Narrative* Isauro Asher MD - 11/26/2022 12:45 PM EST Images from the original note were not included. . [facility] Note Patient name: Steven Koenig PCP: Ulises Hermosillo MD CC: Hemoptysis HPI: Steven Koenig 67 year old female current heavy smoker, over 100 pack years with PMH significant for bipolar affective disorder, h/o alcohol abuse, GERD, PAD, HLD, CAD s/p stent, severe COPD (FEV1 0.83 L 36%), oxygen dependence, previously following in [facility], [place]. Recent admission at [facility] in [place] for AECOPD. CXR reported as normal. Discharged with acourse of doxycycline and prednisone. She states she was doing well until last week when she had anepisode of hemoptysis. She described bright red blood with clots mixed with mucus that lasted 24 hours. No fevers, chills, chest pain. No epistaxis or hematemesis. She has been out of her Trelegy Ellipta and has been using her albuterol at least twice daily. She is on Plavix for her coronary stent.Denies past bleeding problems. Current respiratory symptoms of dyspnea on exertion, wheezing. No chest pain or current cough. DME: [facility] DATA: PFT 05/2022: Review of spirometry shows severe obstruction without significant improvement post bronchodilators and moderate reduction in diffusing capacity Labs: Laboratory testing at [facility], normal CBC and platelet count. Negative COVID and influenza Imaging / Diagnostic Studies: DATE OF EXAM: Jul 26 2022 4:27PM [facility] 0562 - CT LUNG SCREEN WO IVCON / PROCEDURE REASON: multiple diagnoses CLINICAL HISTORY: Lung cancer LDCT screening ? [...] None. Other findings: There is severe centrilobular emphysema with diffuse bronchial wall thickening. No focal consolidation. Linear atelectasis at the lung bases. The imaged thyroid gland is unremarkable.No thoracic lymphadenopathy. There are atherosclerotic calcifications in the thoracic aorta. The thoracic aorta and main pulmonary artery are normal in caliber. The cardiac chambers are normal in size. There are triple-vessel coronary artery calcifications noting LAD stents. No pericardial effusionor pericardial thickening. The imaged upper abdomen is stable without acute abnormality. Emphysema: Severe (50-75%), centrilobular, diffuse Coronary Artery Calcifications: Circumflex mild; Left Anterior Descending stents in place; Right Coronary mild IMPRESSION: LungRADS category: 2 LungRADS modifier: None LungRADS 0 reason: n/a Recommendations: Continue annual screening with LDCT in 12 months. I personally reviewed the images and agree with the above assessment PAST MEDICAL HISTORY Diagnosis Date Acute pancreatitis 2010 Anisha Cruz Alcohol use disorder 01/18/2016 Dr. Angie Jones, [facility] Anxiety 12/14/2015 Bipolar affective disorder, currently active ([facility]) 01/18/2016 Dr. Angie Jones, [facility] Chronic bronchitis ([facility]) 07/26/2016 Closed skull fracture ([facility]) 1994 [facility] Coronary artery disease DDD (degenerative disc disease), cervical Endometriosis 2007 Essential hypertension 12/14/2015 GERD (gastroesophageal reflux disease) 03/13/2019 History of colon polyps History of gastric ulcer 12/14/2015 HLD (hyperlipidemia) Injury of left facial nerve 1994 PAD (peripheral artery disease) ([facility]) 09/28/2019 Recurrent major depression in partial remission ([facility]) 12/14/2015 S/P drug eluting coronary stent placement 08/25/2021 LAD and Dg2 Spinal stenosis ALLERGIES No Known Allergies albuterol HFA (VENTOLIN HFA) 90 mcg/actuation inhaler Inhale 2 Puffs as instructed every 6 hours asneeded for wheezing/shortness of breath. wcicbpwhhoz-nxaxujlpo-vcrqnrck (TRELEGY ELLIPTA) 200-62.5-25 mcg inhalation powder Inhale 1 Puff asinstructed once daily. predniSONE (DELTASONE) 10 mg tablet Take two daily for 5 days then one daily for 10 days nystatin (MYCOSTATIN) 100,000 unit/mL suspension Take 5 mL by mouth four times daily. 1tsp swish inmouth for several minutes, then swallow (or expectorate) 4 times daily until gone. (Patient not taking: Reported on 10/02/2022) acetaminophen (TYLENOL EXTRA STRENGTH) 500 mg tablet Take 1 tablet by mouth every 8 hours as neededfor pain. venlafaxine ER (EFFEXOR XR) 150 mg 24 hr capsule Take 1 capsule by mouth once daily. Take with 75 mg capsule to =225 mg carvedilol (COREG) 6.25 mg tablet Take 1 tablet by mouth twice daily. Olopatadine (PATADAY ONCE DAILY RELIEF) 0.2 % drop Use 1 Drop in both eyes once daily. lisinopril (ZESTRIL, PRINIVIL) 40 mg tablet Take 1 tablet by mouth once daily. LORazepam (ATIVAN) 1 mg tablet Take 1 tablet by mouth every 8 hours as needed for anxiety for up to90 days. (Patient not taking: Reported on 10/02/2022) [...] TOTAL ABDOMINAL HYSTERECT W/WO RMVL TUBE OVARY 1980 Hysterectomy, MAURA TOTAL FACIAL NERVE DECOMPRESSION &/REPAIR Left 1989 [facility] PMH, Social history, family history and surgical history reviewed and updated in EMR REVIEW OF SYSTEMS: CONSTITUTIONAL: No fevers, chills, nightsweats, unintended weight loss HEENT: Denies nasal congestion/sinus symptoms, epistaxis CARDIOVASCULAR: No chest pain, palpitations, orthopnea, PND, edema. PULM: See HPI GI: No dysphagia/odynophagia, problematic reflux, hematemesis PSY: No concerns regarding depression, anxiety INTEGUMENTARY: No bruising PHYSICAL EXAMINATION: BP 120/84 Pulse 98 Resp 20 Wt 127 lb (57.6kg) SpO2 99% General Appearance: Age-appropriate female, plethoric Skin: Skin color, texture, turgor normal, no suspicious rashes or lesions. Head: Normocephalic, no masses, lesions, tenderness or abnormalities. Nose: No epistaxis Eyes: Sclera, conjunctiva normal Oropharynx: Edentulous, no oral lesions or thrush Neck: No JVD, no masses, no thyromegaly, no adenopathy Chest wall: Increased AP diameter Lungs: Not labored, hyperresonant to percussion, diminished breath sounds with expiratory wheezes Heart: Regular rate and rhythm, no murmurs or gallops Extremities: No edema or clubbing Assessment/Plan: 1. Hemoptysis -Transient hemoptysis likely related to her acute COPD exacerbation with bronchitis -Chest x-ray -CBC -Smoking cessation 2. Severe COPD, GOLD 3 -Refilled prescription for Trelegy Ellipta -Smoking cessation strongly encouraged -Due for low-dose chest CT for cancer screening in July 2023 -Alpha-1 antitrypsin level 3. Cigarette smoker -Current heavy smoker, cutting back to 1 pack a day with sequelae of severe COPD -Smoking cessation strongly encouraged Isauro Asher MD [facility] Discharge instructions Patient Education 10/26/2022 19:44:17 COPD Flare COPD Flare You have had a flare-up [...] your ankles gets worse Dizziness or weakness [id number] The [employer]. [address] [place] [address]. All rights reserved. This information is not intended as a substitute for professional medical care. Always follow yourhealthcare professional's instructions. Follow Up Care 10/26/2022 16:18:34 With:Go to emergency room if symptoms worsen Address:Unknown When:2-4 days With:ULISES HERMOSILLO MD Address: [address] [place] [id number]- When:2-4 days [facility] 12-16-2022 Note Discharge Instructions Thank you for allowing [facility] to assist you with your healthcare needs. The following is importantdischarge information regarding your hospital visit. Diagnosis from [...] MD When Within 2-4 days Where: [address] [place] [address]- Allergies NKA Medications Please ask your primary doctor or pharmacist before taking any other medication not listed, including over the counter drugs, herbal medications, vitamins and or supplements as they may interact withyour home medications. What How Much When Why [...] budesonide and formoterol (inhalation) (dunia herbert and for WADE marcos) Symbicort What is the most important [...] uncontrolled asthma during may cause complications such aslow weight, premature , or eclampsia (dangerously high [...] can be serious or even fatal in peoplewho are using a steroid such as budesonide. [...] may report side effects to FDA at 7-297-UCO-2616. What other drugs will affect budesonide and formoterol? Sometimes it is not safe to use certain medications at the same time. Some drugs can affect your blood levels of other drugs you take, which may increase side effects or make the medications less effective. Many drugs can affect budesonide and formoterol. This includes prescription and podm-dyd-jrlcibf medicines, vitamins, and herbal products. Not all [...] to ensure that the information provided by [employer]. ('[employer]') is accurate, up-to-date, and complete, but no guarantee is made to that effect. Drug information contained herein may be time sensitive. [employer] information has been compiled for use by healthcare practitioners and consumers in the [place] and therefore [employer] does not warrant that uses outside of the [place] are appropriate, unless specifically indicated otherwise. [employer] drug information does not endorse drugs, diagnose patients or recommend therapy. [employer] drug information isan informational resource designed to assist licensed healthcare practitioners in caring for their p atients and/or to serve consumers viewing this service as a supplement to, and not a substitute for, the expertise, skill, knowledge and judgment of healthcare practitioners. The absence of a warningfor a given drug or drug combination in no way should be construed to indicate that the drug or drug combination is safe, effective or appropriate for any given patient. [employer] does not assume any responsibility for any aspect of healthcare administered with the aid of information En[employer] provides. The information contained herein is not intended to cover all possible uses, directions, precautions, warnings, drug interactions, allergic reactions, or adverse effects. If you have questions about the drugs you are taking, check with your doctor, nurse or pharmacist. Copyright 8538-2023 [employer]. Version: 9.02. Revision Date: 07/08/2019. prednisone (PRED [...] blood cell disorders, kidney disorders, leukemia, lymphoma, multi ple sclerosis, organ transplant rejection, swelling from a [...] can be serious or even fatal in peoplewho are using steroid medicine. Avoid drinking alcohol. [...] may report side effects to FDA at 0-679-GEC-9005. What other drugs will affect prednisone? Sometimes [...] may affect prednisone. This includes prescription and gxpe-yay-ykftvpx medicines, vitamins, and herbal products. Not all [...] to ensure that the information provided by [employer]. ('[employer]') is accurate, up-to-date, and complete, but no guarantee is made to that effect. Drug information contained herein may be time sensitive. [employer] information has been compiled for use by healthcare practitioners and consumers in the [place] and therefore [employer] does not warrant that uses outside of the [place] are appropriate, unless specifically indicated otherwise. [employer] drug information does not endorse drugs, diagnose patients or recommend therapy. [employer] drug information isan informational resource designed to assist licensed healthcare practitioners in caring for their p atients and/or to serve consumers viewing this service as a supplement to, and not a substitute for, the expertise, skill, knowledge and judgment of healthcare practitioners. The absence of a warningfor a given drug or drug combination in no way should be construed to indicate that the drug or drug combination is safe, effective or appropriate for any given patient. [employer] does not assume any responsibility for any aspect of healthcare administered with the aid of information En[employer] provides. The information contained herein is not intended to cover all possible uses, directions, precautions, warnings, drug interactions, allergic reactions, or adverse effects. If you have questions about the drugs you are taking, check with your doctor, nurse or pharmacist. Copyright 8517-1396 [employer]. Version: 10.. Revision Date: 02/05/2019. doxycycline (oral/injection) (DOX i STACEY kam) Acticlate, Adoxa, Alodox, Avidoxy, Doryx, Mondoxyne [...] eye infections, gonorrhea, chlamydia, periodontitis (gum disease), andothers. Doxycycline is also used to treat blemishes, [...] or life-threatening conditions such as anthrax or Oneida spotted fever. The benefit of treating a [...] reaction (fever, sore throat, burning in your eyes,skin pain, red or purple skin rash that [...] may report side effects to FDA at 2-161-MJV-3645. What other drugs will affect doxycycline? Sometimes it is not safe to use certain medications at the same time. Some drugs can affect your blood levels of other drugs you take, which may increase side effects or make the medications less effective. Other drugs may affect doxycycline, including prescription and mtoa-wrs-fmrvvjd medicines, vitamins, and herbal products. Tell your [...] to ensure that the information provided by [employer]. ('[employer]') is accurate, up-to-date, and complete, but no guarantee is made to that effect. Drug information contained herein may be time sensitive. En[employer] information has been compiled for use by healthcare practitioners and consumers in the [place] and therefore En[employer] does not warrant that uses outside of the [place] are appropriate, unless specifically indicated otherwise. [employer] drug information does not endorse drugs, diagnose patients or recommend therapy. [employer] drug information isan informational resource designed to assist licensed healthcare practitioners in caring for their p atients and/or to serve consumers viewing this service as a supplement to, and not a substitute for, the expertise, skill, knowledge and judgment of healthcare practitioners. The absence of a warningfor a given drug or drug combination in no way should be construed to indicate that the drug or drug combination is safe, effective or appropriate for any given patient. [employer] does not assume any responsibility for any aspect of healthcare administered with the aid of information Enval provides. The information contained herein is not intended to cover all possible uses, directions, precautions, warnings, drug interactions, allergic reactions, or adverse effects. If you have questions about the drugs you are taking, check with your doctor, nurse or pharmacist. Copyright 5804-8864 [employer]. Version: 21.. Revision Date: 09/14/2020. Education Materials COPD Flare [...] your ankles gets worse Dizziness or weakness [id number] The [employer]. [address] [place] [address]. All rights reserved. This information is not intended as a substitute for professional medical care. Always follow yourhealthcare professional's instructions. Additional Information VACCINATE! IT SAVES LIVES! Members of the community who have not yet received the COVID-19 vaccine and would like to receive it can visit one of [facility] vaccine clinics. There are many vaccine clinic locations within the [facility]. For locations and available times, please visit [email or web address]. It is important to note that some COVID mobile vaccine clinics are held outdoors and may be canceled in rainy orstormy conditions. To learn more about pediatric vaccinations (ages 5-11), we invite you to visit the [facility] webpage. [email or web address] [email or web address] learn more about the COVID-19 vaccine, we invite you to visit the [facility] website for a list of frequently asked questions. [email or web address] _[email or web address].pdf [facility] Patient Portal Access Instructions: Stay connected with your healthcare team and access your personal medical information anytime with the [facility] Patient Portal. If you would like a full copy of your medical records please contact the [facility] Medical Records Department Saturday through Saturday between 8a.m. and 4:30p.m. Please follow the directions below to access the portal: 1.Access the email account you provided upon registration to the hospital.2.Look for an invitation email from [facility].3.Open the email and access the invitation link: Accept Invitation to [facility]4.Fill in the required randle to create your account. Sign into [email or web address] with your username and password that you [...] you will allow to register on the [facility] Patient Portal for access to your information. You can also access the [facility] Patient Portal on the [facility] larissa. Simply click on "Health Records" under "HealthData" and then click on the [facility] logo. HOW TO SAFELY DISPOSE OF PRESCRIPTION MEDICATIONS Please use one of the following methods to safely dispose of your unused medications. 1.Use a drug disposal kit: the drug disposal pouch allows you to safely discard your old and unuseddrugs. Ask your nurse to give you one when you are discharged.2.Visit a local take-back location: Many local pharmacies and police departments have programs that collect old and unwanted prescriptiondrugs. Call your local pharmacy or go to http://bit.Pluto.TV/3L4Jz8v to find one close to you.3.Make use of household items: Use cat litter or old coffee grounds to dispose medications if other options arenot available. Mix your drugs with these household products, seal them in an airtight container andthrow it into the garbage. Call [facility]: [phone] to be sure your drugs can be [...] drowsiness, such as benzodiazepines, also known as benzos,including diazepam and alprazolam, muscle relaxants or sleep aids. Never sell or share prescriptionopioids. This is illegal. Store opioids in a [...] been reviewed and explained to me and I,STEVEN KOENIG understand my current condition and have read and understand these discharge instructions. I have received a written copy of the plan/instructions. If I have questions, I am aware that I should contact my doctor. 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 Signature: (more content not included)... [facility]12-16-2022 Note ORIGINAL EXAMINATION: ONE XRAY VIEW OF THE CHEST10/26/2022 6:34 pm CHEST ONE VIEW AP/PA COMPARISON: 05/02/2022 chest x-ray and 08/05/2012 CT scan. HISTORY: ORDERING SYSTEM PROVIDED HISTORY: Reason for Exam: cough, sob FINDINGS: Heart size and vascularity are within normal limits. The lungs are clear of focal consolidation. No effusion, pneumothorax, or acute osseous abnormality. Old right-sided posterior 9th and 10th rib fractures are stable. IMPRESSION: No radiographic evidence of acute cardiopulmonary process. Interpreted by: Keyla Mckeon MD Preliminary Report By: Keyla Mckeon MD Electronically signed By Keyla Mckeon MD Dictated Date: 10/26/2022 7:05:14 PM Prelim Date: 10/26/2022 7:06:29 PM Sign Date: 10/26/2022 7:06:29 PM Ordering Provider: [facility]12-16-2022 Note ORIGINAL EXAMINATION: ONE XRAY VIEW OF THE CHEST10/26/2022 6:34 pm CHEST ONE VIEW AP/PA COMPARISON: 05/02/2022 chest x-ray and 08/05/2012 CT scan. HISTORY: ORDERING SYSTEM PROVIDED HISTORY: Reason for Exam: cough, sob FINDINGS: Heart size and vascularity are within normal limits. The lungs are clear of focal consolidation. No effusion, pneumothorax, or acute osseous abnormality. Old right-sided posterior 9th and 10th rib fractures are stable. IMPRESSION: No radiographic evidence of acute cardiopulmonary process. Interpreted by: Keyla Mckeon MD Preliminary Report By: Keyla Mckeon MD Electronically signed By Keyla Mckeon MD Dictated Date: 10/26/2022 7:05:14 PM Prelim Date: 10/26/2022 7:06:29 PM Sign Date: 10/26/2022 7:06:29 PM Ordering Provider: BRIAN [facility]12-16-2022 SARS-CoV-2 (COVID-19) RNA IVANA+probe Ql (Nph)Negative *NA* (10/26/22 5:52 PM)AO Auto Urine [id number] History of Present illness Narrative* Doron Self DO - 10/02/2022 10:10 AM EST This office note has been dictated. Doron Self DO [facility] Miscellaneous Notes* Telephone Encounter - Linda Olea - 09/24/2022 11:11 AM EST Spoke with pt and confirmed appt on 09/25 * Telephone Encounter - Linda Olea - 09/21/2022 5:00 PM EST Scheduled pt. Tried calling pt twice to inform them of scheduled test on 09/25/22 at 2:30 When pt returns call please check that this appointment works for them. Once completed please document in this encounter. Thank You! Linda Olea' * Telephone Encounter - Doron Self DO - 09/21/2022 3:02 PM EST Ordered placed. * Telephone Encounter - Linda Olea - 09/21/2022 2:44 PM EST PT calling in again to schedule DAMIR US. Order still shows as closed and unable to schedule at thistime. Please fix order and once done please reach out to pt to schedule. Pt stats that her legs have gotten worse. Her toes are sluggish and its hard for her to even wigglethem. Pt also states having tingling in toes. Please reach out to pt as soon as able. Thank you! Linda Olea documented [facility]22 Miscellaneous Notes* Telephone Encounter - Nevin Horne Pss - 09/19/2022 10:02 AM EST Patient called to reschedule damir lab testing from 07/13. Unable to schedule, stated 09/11. Please place new orders and advise patient for scheduling. documented in this encounterToledo [facility]10-26-2022 History of Present illness Narrative* Ulises Hermosillo MD - 09/05/2022 4:46 PM EDT Patient presents with: Pain: Mouth pain x 1 week Steven Koenig was here for above. She developed general soreness in her gums and mouth after she had a flu shot. She had trouble eating and chewing. She had not taken any thing for her symptoms. She was under stress due to the of her brother from arson. ROS; No cold, no fever, no dysphagia. ACTIVE PROBLEM LIST Essential Hypertension Recurrent Major Depression in Partial Remission ([facility]) Bipolar Affective Disorder, Currently Active ([facility]) History of Alcohol Abuse Chronic bronchitis ([facility]) Spinal Stenosis, Lumbar Region Without Neurogenic Claudication Radiculopathy, Lumbar Region Smoker Gerd (Gastroesophageal Reflux Disease) Seasonal Allergies Pad (Peripheral Artery Disease) ([facility]) Anxiety and Depression Prediabetes Chest Pain Other Chest Pain Stenosis of Carotid Artery Mixed Hyperlipidemia Abnormal Stress Test Dyspnea On Exertion Coronary Artery Disease Involving [place] Coronary Artery of [place] Heart Without Angina Pectoris Lung Nodule Current Outpatient Medications Medication Sig nystatin (MYCOSTATIN) 100,000 unit/mL suspension Take 5 mL by mouth four times daily. 1tsp swish inmouth for several minutes, then swallow (or expectorate) 4 times daily until gone. acetaminophen (TYLENOL EXTRA STRENGTH) 500 mg tablet Take 1 tablet by mouth every 8 hours as neededfor pain. venlafaxine ER (EFFEXOR XR) 150 mg [...] once daily. lisinopril (ZESTRIL, PRINIVIL) 40 mg tablet Take 1 tablet by mouth once daily. LORazepam (ATIVAN) 1 mg tablet Take 1 tablet by mouth every 8 hours as needed for anxiety for up to90 days. venlafaxine ER (EFFEXOR XR) 75 mg 24 hr capsule Take 1 capsule by mouth once daily. Take with 150 mg capsule to =150 mg triamcinolone acetonide (KENALOG) 0.1 % cream Apply 1 application to affected area three times daily. Apply sparingly to area for rash/itching. traZODone (DESYREL) 100 mg tablet Take 2 tablets by mouth daily at bedtime. tdarbtvlpje-jopvcehry-zijhznoa (TRELEGY ELLIPTA) 200-62.5-25 mcg inhalation powder Inhale 1 Puff asinstructed once daily. albuterol HFA (VENTOLIN HFA) 90 mcg/actuation inhaler Inhale 2 Puffs as instructed every 6 hours asneeded for wheezing/shortness of breath. amLODIPine (NORVASC) 10 [...] by mouth once daily. No current facility-administered medications for [...] control Ulises Hermosillo MD documented in this encounterToledo Hospital10-26-2022 Miscellaneous Notes* Telephone Encounter - Nena Dozier RN - 09/05/2022 12:48 PM EDT Patient calls in to report that she is having mouth pain with peeling gums and white patches. Nursetriage completed. Protocol recommends see provider within 3 days. Appointment scheduled this afternoon per patient request. Care advice reviewed. Patient verbalizes understanding. Reason for Disposition [1] MILD-MODERATE mouth pain AND [2] present > 3 days Answer Assessment - Initial Assessment Questions 1. ONSET: Noticed pain about a week ago but has been getting worse. Now has some peeling areas and white patches to the gums. Patient reports she wears dentures but hasn't used them in over a year soit isn't related to that. 2. SEVERITY: - MODERATE (4-7): interferes with eating some solids and normal activities 3. SORES: Patient reports that her gums are peeling and she has white patchy areas. 4. FEVER: No 5. CAUSE: Patient not certain but reports that the pain is worsening and it is getting more difficult to swallow certain foods and drinks. 6. OTHER SYMPTOMS: No difficulty with drinking. Protocols used: Mouth Srwo-EHAYC-EU documented in this encounterToledo Hospital10-21-2022 Instructions* Patient Instructions* Oly Smith APRN.CNP - 08/31/2022 1:46 PM EDT Increase venlafaxine to 225 mg, take 150 mg cap with 75 mg cap to equal 225 mg. Take lorazepam as needed. Please use sparingly, no refills. Patanol eye drops for allergy symptoms Triamcinolone cream for rash on left ear documented in this encounterToledo Hospital10-21-2022 History of Present illness Narrative* Oly Smith APRN.CNP - 08/31/2022 1:28 PM EDT CC: Patient presents with: F/U 3 Month HPI Steevn Koenig is a 67 year old female who presents today for above. Her main concern today is anxiety. She has a history of anxiety treated [...] No Denies: headache, chest pain, palpitations, and peripheral edema. 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 She on Plavix and Imdur. She stopped taking ASA because she takes Excedrin a lot and thought it was the same thing. Chronic bronchitis ([facility]) Internal Sales is with [facility]. Last appointment in May. Symbicort was stopped and she was started on Trelegy. She reports chronic cough, SOB and wheezing are about the same. Also has home oxygen for as needed use. REVIEW OF SYSTEMS See HPI PAST MEDICAL HISTORY Diagnosis Date Acute pancreatitis 2010 Anisha Cruz Alcohol use disorder [facility]/18/2016 [facility] Anxiety 12/14/2015 Bipolar affective disorder, currently active ([facility]) 01/18/2016 Dr. Angie Jones, [facility] Chronic bronchitis ([facility]) 07/26/2016 Closed skull fracture ([facility]) 1994 [facility], [facility] Coronary artery disease DDD (degenerative disc disease), cervical Endometriosis 2007 Essential hypertension 12/14/2015 GERD (gastroesophageal reflux disease) 03/13/2019 History of colon polyps History of gastric ulcer 12/14/2015 HLD (hyperlipidemia) Injury of left facial nerve 1994 PAD (peripheral artery disease) ([facility]) 09/28/2019 Recurrent major depression in partial remission ([facility]) 12/14/2015 S/P drug eluting coronary [...] TOTAL FACIAL NERVE DECOMPRESSION &/REPAIR Left 1989 [facility] ALLERGIES Patient has no known allergies. MEDICATIONS traZODone (DESYREL) 100 mg tablet^Take 2 tablets by mouth daily at bedtime.^Disp: 60 tablet^Rfl: 5 odztggynyic-ckzomaabk-plrjubzr (TRELEGY ELLIPTA) 200-62.5-25 mcg inhalation powder^Inhale 1 Puff asinstructed once daily.^Disp: 60 Each^Rfl: 11 budesonide-formoterol (SYMBICORT) 160-4.5 mcg/actuation inhaler^Inhale 2 Puffs as instructed twice daily.^Disp: 1 Each^Rfl: 0 albuterol HFA (VENTOLIN HFA) 90 mcg/actuation inhaler^Inhale 2 Puffs as instructed every 6 hours asneeded for wheezing/shortness of breath.^Disp: 80 g^Rfl: 11 amLODIPine (NORVASC) 10 mg tablet^TAKE 1 TABLET BY MOUTH EVERY DAY^Disp: 90 tablet^Rfl: 3 omeprazole (PRILOSEC) 40 mg capsule^Take 1 capsule by mouth once daily.^Disp: 90 capsule^Rfl: 3 lisinopril (ZESTRIL, PRINIVIL) 40 mg tablet^Take 1 tablet by mouth once daily.^Disp: 90 tablet^Rfl:3 venlafaxine ER (EFFEXOR XR) 150 mg 24 hr capsule^Take 1 capsule by mouth once daily.^Disp: 90 capsule^Rfl: 0 isosorbide mononitrate ER (IMDUR) 30 mg 24 hr tablet^TAKE 1 TABLET BY MOUTH EVERY DAY^Disp: 90 tablet^Rfl: 3 (Patient not taking: Reported on 07/31/2022) carvedilol (COREG) 6.25 mg tablet^TAKE 1 TABLET BY MOUTH TWICE A DAY^Disp: 180 tablet^Rfl: 3 atorvastatin (LIPITOR) 80 mg tablet^TAKE 1 TABLET BY MOUTH EVERY DAY^Disp: 90 tablet^Rfl: 3 aspirin 81 mg chewable tablet^Take 1 tablet by mouth once daily.^Disp: 90 tablet^Rfl: 3 clopidogrel (PLAVIX) 75 mg tablet^Take 1 tablet by mouth once daily.^Disp: 90 tablet^Rfl: 3 clopidogrel (PLAVIX) 75 mg tablet^Take 1 tablet by mouth once daily.^Disp: 30 [...] 22.27 kg/m General Appearance: well appearing, in no acute distress, alert Pysch: anxious and tearful Eyes: conjunctiva pink and moist, no icterus, sclera injected, no drainage Lungs: Lungs clear to auscultation. No wheezing, rhonchi, rales. Heart: RRR without murmur, gallop, or rubs. No ectopy Health maintenance reviewed with patient: DTAP,TDAP,TD(1 - Tdap) Never done SHINGRIX VACCINE(1 of 2) Never done BONE DENSITY Never done BP CONTROLLED (<130/80) due on 01/06/2021 ADVANCE DIRECTIVE DISCUSSION Never done COVID-19 VACCINE(2 - Pfizer series) due on 12/12/2021 INFLUENZA(1) due on 07/12/2022 LDL CHOLESTEROL due on 09/27/2022 ANNUAL PCP TEAM CHRONIC DISEASE VISIT due on 05/11/2023 LUNG CANCER SCREENING due on 07/26/2023 DIABETES SCREEN due on 10/19/2024 LIPID SCREEN due on 09/27/2026 COLORECTAL CANCER SCREENING due on 04/03/2027 HEPATITIS C SCREENING Completed PNEUMOCOCCAL: 65+ Completed MAMMOGRAM Discontinued DATA REVIEWED: Most recent labs ASSESSMENT/PLAN: 1. Situational anxiety - ICD9: 300.09, ICD10: F41.8 (primary diagnosis) Anxiety and panic attacks due to sudden loss of her brother. Recommend increasing Effexor to 225 mgdaily. Patient requesting something for the panic attacks. - LORAZEPAM 1 MG TABLET to be used sparingly as needed, advised patient no refills. Discussed potential for overdose, abuse and addiction; patient verbalized understanding. PDMP website checked and validated. All prescriptions have been APPROPRIATELY filled. No suspiciousactivity was identified. 08/31/2022 by Oly Smith APRN.CNP 2. Allergic conjunctivitis of both eyes - ICD9: 372.14, ICD10: H10.13 Start Patanol. Follow-up with eye doctor if doesn't improve with consistent use 3. Recurrent major depression in partial remission (HCC) - ICD9: 296.35, ICD10: F33.41 See #1 - VENLAFAXINE ER 150 MG CAPSULE,EXTENDED RELEASE 24 HR 4. Essential hypertension - ICD9: 401.9, ICD10: I10 - good control - Continue current medication(s) - Recommended regular aerobic exercise. - Recommend home blood pressure monitoring, to bring results in on next visit - Goal of BP <130/80 - LISINOPRIL 40 MG TABLET 5. Coronary artery disease involving [place] coronary artery of [place] heart without angina pectoris- ICD9: 414.01, ICD10: I25.10 Stable 6. Chronic bronchitis, unspecified chronic bronchitis type (HCC) - ICD9: 491.9, ICD10: J42 Stable. Continue with inhalers. Follow-up with pulmonology 7. Encounter for immunization - ICD9: V03.89, ICD10: Z23 - INFLUENZA SEASONAL QUADRIVALENT HIGH DOSE AGE 65+ 8. Mixed hyperlipidemia - ICD9: 272.2, ICD10: E78.2 - to be determined upon return of lab results - Continue current medication. 9. Lung nodule - ICD9: 793.11, ICD10: R91.[address] in July. Follow-up with lung cancer charge entry specialist as advised 10. Screening for osteoporosis - ICD9: V82.81, ICD10: Z13.820 - DXA-AXIAL SKELETON 11. Asymptomatic menopause - ICD9: V49.81, ICD10: Z78.0 - DXA-AXIAL SKELETON Prescription instructions reviewed with patient as applicable. Potential red flag symptoms discussed with the patient. Reviewed appropriate action plan to take if red flag symptoms occur. Patient agreeable to treatment plan. Oly Smith APRN.CNP documented in this encounterToledo Hospital10-06-2022 Miscellaneous Notes* Telephone Encounter - Ulises Hermosillo MD - 08/16/2022 1:08 AM EDT No thanks. * Telephone Encounter - Nena Dozier RN - 08/13/2022 12:26 PM EDT February CM with [facility] calls to let provider know that care plans for patient are available on the portal now. February also wants to let provider know that on August 30 at 4 pm they will be having a rounding meeting and if provider would like to attend he can contact them at [phone] Option 3 to arrange. Nena Dozier RN documented in this encounterToledo Hospital09-22-2022 Miscellaneous Notes* Telephone Encounter - Nevin Smith - 08/02/2022 12:39 PM EDT Please call patient to schedule testing prior to appt on 08/14/2022 Thank you documented in this encounterToledo Hospital09-20-2022 Instructions* Patient Instructions* Karly Garcia APRN.CNP - 07/31/2022 2:44 PM EDT Good news! Your CT scan for lung screening shows one or more small nodule/s, but due to the size there is an extremely low risk (Less than 1%) that they represent a cancer; this is known as LungRADS Category 2. All lung nodules identified are stable (unchanged) since your last CT scan, and no new nodules of concern were seen on the exam. I recommend that you follow up with the lung cancer screening clinic in one year for a repeat CT scan of your chest to ensure these nodules don't change or grow and that no new nodules develop. We will schedule you for follow up in one year for another visit with our team and an additional CTscan. If you have any questions or concerns please feel free to contact me at [phone]. Karly Garcia APRN.ANESTHESIOLOGY FACULTY documented in this encounterToledo Hospital09-20-2022 History of Present illness Narrative* Karly Garcia APRN.LINDA - 07/31/2022 2:30 PM EDT Images from the original note were not included. Chief Complaint: Here to review results from LDCT scan dated 07/26/22 for LUNG RADS Category 2 finding. History of Present Illness: Steven Koenig is a 67 year old female who is presenting today for [...] and denies hemoptysis. Patient has a chronic daily productive cough with clear sputum. Denies recent fevers/chills but does report night sweats a few times a year that has been present for "years". Patient does not have any significant unintentional weight loss, appetite is good. Is supposed to wear 2L NC at all times but only uses it at home as she does not have a small portable O2 machine due to cost. Current respiratory medication includesTrelegy daily and Symbicort daily and prn albuterol- using 2x daily. Per her last OV with her s iron worker, Symbicort was advised to be discontinued as Trelegy was added on. Activity: Does light house work but has to stop in between chores to catch her breath. Gets SOB with showering or with walking from her bedroom to her kitchen. The patient does not require assistancewith normal activities of daily living. Modified Medical Research [place] Dyspnea Scale (MMRC) I stop for breath after walking about 100 yards or after a few minutes on level ground 3 History of respiratory exposures include: Occupational: None Environmental: Second had smoke exposure as a child Father and mother had lung cancer Past Medical History: PAST MEDICAL HISTORY Diagnosis Date Acute pancreatitis 2010 Anisha Cruz Alcohol use disorder 01/18/2016 Dr. Angie Jones, [facility] Anxiety 12/14/2015 Bipolar affective disorder, currently active ([facility]) 01/18/2016 Dr. Angie Jones, [facility] Chronic bronchitis ([facility]) 07/26/2016 Closed skull fracture ([facility]) 1994 [facility] Coronary artery disease DDD (degenerative disc disease), cervical Endometriosis 2007 Essential hypertension 12/14/2015 GERD (gastroesophageal reflux disease) 03/13/2019 History of colon polyps History of gastric ulcer 12/14/2015 HLD (hyperlipidemia) Injury of left facial nerve 1994 PAD (peripheral artery disease) ([facility]) 09/28/2019 Recurrent major depression in partial remission ([facility]) 12/14/2015 S/P drug eluting coronary [...] TOTAL FACIAL NERVE DECOMPRESSION &/REPAIR Left 1989 [facility] Family Hx: FAMILY HISTORY Problem Relation Age of Onset Cancer Mother 50 lung cancer Hypertension Mother Cancer Father 50 lung cancer Cancer Sister 61 lung cancer Allergies: ALLERGIES No Known Allergies Social History Tobacco Use: 2 packs/day, for 55 years. Types: Cigarettes (down to 1ppd 10/06/19 ) Review Of Systems: See HPI for ROS All of the remainder systems were reviewed and negative. PHYSICAL EXAMINATION: BP 177/108 Pulse 89 Wt 133 lb (60.3kg) SpO2 98% General appearance: Alert, pleasant. Well-appearing, in no distress. Skin: Not pallorous. Not diaphoretic. No jaundice. HEENT: No palpable cervical or supraclavicular lymphadenopathy. No thyromegaly. Lungs: Clear to auscultation bilaterally. +wheeze at end of exhalation. No rales, or rhonchi. No pleural rub. Respiratory effort normal. Heart: Regular rate and rhythm. Normal heart tones. No murmur. No peripheral edema. Extremities: No edema. Adequate capillary refill. No digital clubbing; Neuro: Alert. Oriented. Speech intact. Muscle strength grossly intact bilaterally The remainder of the physical exam is otherwise negative. Data Review I have visually reviewed imaging and testing below 07/26/22 02/03/21 CT was compared to prior CT chest. PFTS: Completed 06/06/22- severe obstruction with no significant bronchodilator response and a reduced DLCO Assessment and Plan: 1. Pulmonary Nodule: RUL 8.2mm lung nodule identified on the last CT [...] - SMOKING CESSATION COUNSELING -Smoking cessation methods including Nicotine Replacement Therapies, Bupropion, Varenicline, and Behavior Modification were discussed with the patient and assistance offered. -The medical conditions adversely affected by cigarette use include: Lung Cancer, COPD -The patient is currently not ready to quit. -I personally spent 5 minutes in counseling. -The time spent in smoking cessation counseling is exclusive of any other counseling during this visit. Karly Garcia APRN.LINDA July 31, 2022 11:12 AM I spent a total of 30 minutes on the date of the service which included preparing to see the patient, lajc-zl-yidl patient care, completing clinical documentation, obtaining and/or reviewing separately obtained history, performing a medically appropriate examination, counseling and educating the pat ient/family/caregiver, and communicating results to the patient/family/caregiver. Associated attestation - Nicole Kenny APRN.CNP - 07/31/2022 4:53 PM EDT TEACHING PROVIDER (Physician/PA/MELISSA) NOTE OF PERSONAL INVOLVEMENT IN CARE: I have personally seen and examined the patient and performed the medical decision-making components. I have reviewed the Karly Loya 's documentation and verified the findings in the note as written. Any additions or changes are noted in bold/italics. Signature: Nicole Kenny APRN.ANESTHESIOLOGY FACULTY Date: 07/31/2022 Time: 4:53 PM documented in this encounterToledo Hospital09-15-2022 NoteHNO ID: [id number] Author: YASSINE Hatch Service: Radiology Author Type: Technologist Type: Progress Notes Filed: 07/26/2022 4:25 PM Note Text: Radiology Service Progress Note PATIENT NAME: Steven Koenig DATE OF SERVICE: July 26, 2022 [...] GENDER DATA: Female. status: : No status: NO. PATIENT RELEVANT IMPLANT DATA REVIEWED: Not Applicable RADIOLOGY DEPARTMENT: CT; Exam(s) Completed: Chest PERIPHERAL IV DATA: Not applicable SIGNED BY: YASSINE Hatch July 26, 2022 4:24 PMUniversity Hospitals Portage Medical [id number] Miscellaneous Notes* Telephone Encounter - Saranya Link Ma - 07/24/2022 2:16 PM EDT LM notifying patient * Telephone Encounter - Dat Rodney MD - 07/23/2022 6:05 PM EDT Not sure what is meant about the inhalers. Approved as pended so at least gets what was pended. No refills on the Symbicort. The following approved medication requests have been transmitted electronically. Requested Prescriptions Signed Prescriptions Disp Refills traZODone (DESYREL) 100 mg tablet 60 tablet 5 Sig: Take 2 tablets by mouth daily at bedtime. Authorizing Provider: DAT RODNEY kvksbfjztfa-ptctbjtax-ehqvxock (TRELEGY ELLIPTA) 200-62.5-25 mcg inhalation powder 60 Each 11 Sig: Inhale 1 Puff as instructed once daily. Authorizing Provider: DAT RODNEY budesonide-formoterol (SYMBICORT) 160-4.5 mcg/actuation inhaler 1 Each 0 Sig: Inhale 2 Puffs as instructed twice daily. Authorizing Provider: DAT RODNEY MD * Telephone Encounter - Linda Mills RN - 07/23/2022 10:03 AM EDT Pt called in asking about medications. Reports that she didn't need one and needed another inhaler.She reports she is completely out of 2 of the medications. Please call Pt once medications are sent. * Telephone Encounter - Jasmine Ramos LPN - 07/20/2022 11:51 AM EDT last seen pcp 05/11/22. Next appt is 08/13/22 with BATCHING OPERATOR. * Telephone Encounter - Arlen Austin - 07/20/2022 11:25 AM EDT Patient has been identified by Yesname and date of : Requested Prescriptions Pending Prescriptions Disp Refills traZODone (DESYREL) 100 mg tablet 60 tablet 0 Sig: Take 2 tablets by mouth daily at bedtime. qcmypdlrfla-tjytsdlzc-kfdujzrj (TRELEGY ELLIPTA) 200-62.5-25 mcg inhalation powder 60 Each 11 Sig: Inhale 1 Puff as instructed once daily. venlafaxine ER (EFFEXOR XR) 150 mg 24 hr capsule 90 capsule 0 Sig: Take 1 capsule by mouth once daily. RX INSTRUCTIONS: Patient aware RX will be sent to pharmacy. No need to notify patient. Arlen Avalos Pss documented in this encounterToledo Hospital09-06-2022 Miscellaneous Notes* Telephone Encounter - Hyacinth Austin - 07/17/2022 2:02 PM EDT Left message to advise appointment with Dr Self has been moved up to August 4ht @ 10:15 in the [place] . * Telephone Encounter - Maritza De Los Santos - 07/13/2022 3:52 PM EDT Patient called back in regard to message left for her. Informed her that she needs to complete testing first before she has appt with Dr. Self. She verbalized understanding. I informed her of when her testing is on 07/26/2022 in [place] and rescheduled her appt with Dr. Self in [place] on 09/11/2022 since that was the soonest available she could go to. She's been added to the waitlist for this appt as well. Thank you. Maritza De Los Santos * Telephone Encounter - Nevin Sarah - 07/13/2022 3:14 PM EDT Called patient to inform she needs testing prior to appt 07/17/22 She reports she is having significant pain in her right leg. The soonest testing appt [facility] has available is 07/25/22. Patient is tentatively scheduled on thatday. Appt needs to be rescheduled. Discussed with patient she could come for the visit on 07/17/22 howeverthe testing is necessary to see if there is anything new going on since her last scan. Left patient a voicemail with this information, advised she could call the office for other appt options in [place]. documented in this [facility]08-29-2022 Procedure note* ASHLEY Cage - 07/09/2022 3:31 PM EDTAssociated Order(s): OXIMETRY WITH AMBULATION RESPIRATORY THERAPY OXIMETRY WITH AMBULATION Oximetry with Ambulation Test for This Encounter O2 Device O2 Adapter NC O2 Flow SpO2% HR Activity Ft Walked (ft) Time (min) Avg Speed (MPH) R/A 97 83 Resting R/A 97 109 Walking, usual pace 460 3 1.74 General Information Pulse Oximetry Site Total Time Spent O2 Supply Carrier Walking Assistance/Device Forehead 15 -- 3 Wheel Walker NAME: ASHLEY Cage PATIENT NAME: Steven Koenig DATE: July 09, 2022 TIME: 3:31 PM Comment: patient stated she was dizzy when ambulating. Rolling walker used for stability. documented in this [facility]08-29-2022 History of Present illness Narrative* ASHLEY Cage - 07/09/2022 3:29 PM EDT PULM FUNCTION SMARTBLOCK: Provider: Margaret Kasper MD Assisting Tech: ASHLEY Cage Oximetry - Ambulation: 1 documented in this [facility]08-26-2022 Miscellaneous Notes* Telephone Encounter - Margaret Kasper MD - 07/06/2022 11:29 AM EDT Order for oximetry documented in this [facility]08-04-2022 Miscellaneous Notes* Telephone Encounter - Irena Cantor LPN - 06/14/2022 2:00 PM EDT Patient has been identified by name and date of : Yes Patient phones for refill(s): Pending Prescriptions Disp Refills TRAZODONE 100 MG TABLET 60 tablet 0 Sig: Take 2 tablets by mouth daily at bedtime. BECKY: No Date of last office visit in primary care: 05/11/2022 3 month follow-up: 08/13/2022 Last 2 Encounter Wt Readings: Date: Wt: 06/06/2022 58 kg (127 lb 13.9 oz) 05/11/2022 58.1 kg (128 lb) Previous labs/tests for medication: Not applicable Please advise. Thank you. Irena Cantor LPN * Telephone Encounter - Cailin Austin - 06/14/2022 1:13 PM EDT Patient has been identified by name and date of : Yes Pending Prescriptions Disp Refills TRAZODONE 100 MG TABLET 60 tablet 0 Sig: Take 2 tablets by mouth daily at bedtime. BECKY: No RX INSTRUCTIONS: Patient aware RX will be sent to pharmacy. No need to notify patient. Cailin Austin [facility] History of Present illness Narrative* Margaret Kasper MD - 06/06/2022 10:29 AM EDT Images from the original note were not included. [facility] OFFICE VISIT CONSULT 06/06/2022 Patient Name: Steven Koenig PRIMARY CARE PHYSICIAN: Ulises Hermosillo MD REASON FOR CONSULT: Asthma -COPD overlap syndrome/smoking REFERRING PHYSICIAN: Nicole Kenny, * My final recommendations will be communicated to the requesting health care provider by way of the shared medical record for internal providers or by letter via US mail for external providers. CHIEF COMPLAINT: Asthma -COPD overlap syndrome/smoking HISTORY OF PRESENT ILLNESS: Steven Koenig is a 67 year old female, Ht 162.1 cm (5' 3.82") BMI 22.07 kg/m2 with a PMH significant for current everyday smoking, history of asthma since teenage, COPD, recently discharged from [facility] where she was treated for COPD exacerbation and acute hypoxemic respiratory failure, coronary artery disease here for evaluation. The patient was discharged home on oxygen supplementation to be used continuously at 2 L/min. The patient has wondering whether she needs to continue using oxygen and his asking for portable oxygen concentrator. No new respiratory complaints today other than Chronic shortness of breath and cough and sputum production She continues to smoke but cut down to less than a pack a day She understand that she needs to quit smoking completely Symptoms are mild to moderate, persistent, occur mainly on exertion and relieved by inhalers Recent hospital admissions: [facility] in [place] Medications: Symbicort, albuterol Most recent Radiology Most recent chest x-ray February 2021 prominent bronchovascular marking Most recent PFT: Spirometry today with severe airflow obstruction with borderline significant response to bronchodilators. Moderate reduction in DLCO Oxygen supplementation: 2 L/min MMRC Dyspnea Scale: 0. Not troubled by breathlessness except on strenuous exercise 1. Short of breath when hurrying or walking up a slight hill 2. Walks slower than contemporaries on the level because of breathlessness, or has to stop for breath when walking at own pace 3. Stops for breath after about 100 m or after a few minutes on the level 4. Too breathless to leave the house, or breathless when dressing or undressing Environmental/ Occupational Exposure History: Pets: No birds Asbestos: No significant exposure Silica: No significant exposure [place]: No significant exposure Mold: No significant exposure Hot tub: No significant exposure Fumes: No significant exposure Metal dust: No significant exposure Beryllium: No significant exposure Dust: No significant exposure Medications: No relevant exposure for interstitial lung diseases PAST MEDICAL HISTORY Diagnosis Date Acute pancreatitis 2010 [facility] Alcohol use disorder 01/18/2016 [facility] Anxiety 12/14/2015 Bipolar affective disorder, currently active ([facility]) 01/18/2016 [facility] Chronic bronchitis ([facility]) 07/26/2016 Closed skull fracture ([facility]) 1994 [facility] Coronary artery disease DDD (degenerative disc disease), cervical Endometriosis 2007 Essential hypertension 12/14/2015 GERD (gastroesophageal reflux disease) 03/13/2019 History of colon polyps History of gastric ulcer 12/14/2015 HLD (hyperlipidemia) Injury of left facial nerve 1994 PAD (peripheral artery disease) ([facility]) 09/28/2019 Recurrent major depression in partial remission ([facility]) 12/14/2015 S/P drug eluting coronary [...] TOTAL FACIAL NERVE DECOMPRESSION &/REPAIR Left 1989 [facility] FAMILY HISTORY Problem Relation Age of Onset Cancer Mother 50 lung cancer Hypertension Mother Cancer Father 50 lung cancer Cancer Sister 61 lung cancer Social History Tobacco Use Smoking status: Current Every Day Smoker Packs/day: 2.00 Years: 55.00 Pack years: 110.00 [...] 6 hours asneeded for wheezing/shortness of breath. amLODIPine (NORVASC) 10 mg tablet TAKE 1 TABLET BY MOUTH EVERY DAY omeprazole (PRILOSEC) 40 mg capsule Take 1 capsule by mouth once daily. traZODone (DESYREL) 100 mg tablet Take 2 tablets by mouth daily at bedtime. lisinopril (ZESTRIL, PRINIVIL) 40 mg tablet Take [...] Take 1 tablet by mouth once daily. ogyogqffqbq-srpxacjpk-nkxgaqxf (TRELEGY ELLIPTA) 200-62.5-25 mcg inhalation powder Inhale 1 Puff asinstructed once daily. clopidogrel (PLAVIX) 75 mg tablet Take 1 tablet by mouth once daily. REVIEW OF SYSTEMS Review of Systems Constitutional: Negative for chills, fever and weight loss. Respiratory: Positive for cough, sputum production, shortness of breath and wheezing. Negative for hemoptysis. Cardiovascular: Negative for chest pain and leg swelling. The remainder of review of systems was negative. PHYSICAL EXAM BP 173/84 Pulse 77 Ht 5' 3.819" (1.62m) Wt 127 lb 13.9 oz (58.0kg) SpO2 96% BMI 22.07 kg/(m^2). General appearance: Well appearing, alert, in no acute distress, well-hydrated, well nourished. Eyes: PERRLA Neck: no palpable masses Lungs: Positive findings: wheezing Heart: "RRR without murmur, gallop, or rubs. No ectopy", normal peripheral pulses, no peripheral edema Abdomen: Abdomen soft, non-tender. Bowel sounds normal. No masses, organomegaly Extremities: Normal, Warm, No cyanosis, no clubbing, No edema and Nontender Neuro: no focal weakness Psychiatry: Alert, Oriented X 3 DATA Diagnostic tests reviewed for today's visit, including films and specimens, personally reviewed by me: Most recent labs and imaging results. Recent Results (from the past 8760 hour(s)) ECG COMPLETE Collection Time: 10/19/21 2:17 PM Result Value Ventricular Rate 76 Atrial Rate 76 P-R Interval 156 QRS Duration 88 QT Interval 400 QTC Calculation (Bazett) 450 Calculated P [place] 82 Calculated R [place] 65 Calculated T [place] 69 Impression NORMAL SINUS RHYTHM NORMAL ECG Confirmed by DYLAN ROTH M.D. ([id number]) on 10/23/2021 11:14:32 AM Recent Results (from the past 11510 hour(s)) ECHO Collection Time: 05/21/22 3:26 PM Impression CONCLUSIONS: - Technically difficult exam due to body habitus and COPD/SOB. - Exam indication: Shortness of Breath - The left ventricle is normal in size. Left ventricular systolic function is normal. EF = 59 5% (2D 4-ch.) Grade I left ventricular diastolic dysfunction. - The right ventricle is normal in size. Right ventricular systolic function is normal. - There are no significant valvular abnormalities. - There are no significant valvular abnormalities. - The patient has not had a prior CC echocardiographic exam for comparison. * * * Final * * * ASSESSMENT/PLAN 1. Asthma-COPD overlap syndrome (HCC) - ICD9: 493.20, ICD10: J44.9 (primary diagnosis) Stopping Symbicort Start Trelegy Albuterol as needed Smoking cessation Has an appointment with lung cancer screening We will discuss referral to pulmonary rehab next visit 2. Smoking - ICD9: 305.1, ICD10: F17.200 Discussed importance of smoking cessation - ALBUTEROL SULFATE HFA 90 MCG/ACTUATION AEROSOL INHALER Margaret Kasper MD Immunizations: Up to date SMOKING CESSATION COUNSELING Smoking cessation methods including Nicotine Replacement Therapies, Bupropion, Varenicline and Behavior Modification were discussed with the patient and assistance offered. The medical condition/s adversely affected by tobacco use include:COPD, Emphysema and Lung Cancer. The patient is currently not ready to quit. I personally spent 3 minutes in counseling. The time spent in smoking cessation counseling is exclusive of any other counseling during this visit. Patient instructed to contact me for ct scan and lab results. I discussed the plan in detail with the patient and the patient verbalizes understanding and is in agreement. FOLLOW UP 6 months Verbal and/or written health teaching given to patient with > 40 minutes spent face to face withmore than half of this for disease counseling. Margaret Kasepr MD Staff, Respiratory [facility] CC: MD Zoya Jameson, Nicole Rojas, * documented in this encounterToledo Hospital07-27-2022 History of Present illness Narrative* Paco Miguel RRT - 06/06/2022 9:47 AM EDT PULM FUNCTION SMARTBLOCK: Provider: Margaret Kasper MD Assisting Tech: Paco Miguel, ROBERT Spirometry w/BD: 1 DLCO: 1 documented in this encounterToledo Hospital07-25-2022 Miscellaneous Notes* Telephone Encounter - Ranulfo Blackman Ma - 06/04/2022 12:50 PM EDT New order printed and faxed. Ranulfo Blackman Ma * Telephone Encounter - Oly Smith APRN.CNP - 06/04/2022 11:45 AM EDT See phone note from 05/31, this was faxed and then re faxed on 06/04 Oly Smith APRN.LINDA * Telephone Encounter - Jaylyn Caceres RN - 06/04/2022 10:07 AM EDT [facility] has received several orders for the Aerochamber spacer, electronically signed by [employer]. States she cannot accept this. Needs an actual prescription with name, addressand signature of provider. Please send actual prescription. Fax number [phone]. documented in this encounterToledo Hospital07-22-2022 Miscellaneous Notes* Telephone Encounter - Ranulfo Blackman Ma - 06/01/2022 2:59 PM EDT Order faxed - patient notified, verbalized understanding. Ranulfo Blackman Ma * Telephone Encounter - Oly Smith APRN.CNP - 06/01/2022 1:44 PM EDT She has an appointment with pulmonary medicine on 06/06, she can discuss portable oxygen tank ordersat that time. Please fax prescription for spacer Oly Smith APRN.CNP * Telephone Encounter - Christina Franco RN - 06/01/2022 1:29 PM EDT Patient calls and is asking about a spacer for her inhalers. Patient asking if prescription can be sent for inhaler spacer? Pharmacy [facility]. See Message below in regards to portable oxygen tank. Please review and advise, Christina Franco RN * Telephone Encounter - Christina Franco RN - 05/31/2022 11:07 AM EDT Patient calls and is asking if provider can write orders for patient to have a smaller portable oxygen tank so it is easier for her to go places. She gets current supplies from [facility]. Please review and advise, Christina Franco RN documented in this encounterToledo Hospital07-20-2022 Miscellaneous Notes* Addendum Note - Nicole Kenny APRN.CNP - 05/30/2022 9:06 AM EDT Addended by: NICOLE KENNY on: 05/30/2022 09:06 AM Modules accepted: Orders documented in this encounterToledo Hospital07-19-2022 Miscellaneous Notes* Telephone Encounter - Tracy Alan LPN - 05/29/2022 7:04 AM EDT Patient's request for medication is as follows: Pending Prescriptions Disp Refills AMLODIPINE 10 MG TABLET 90 tablet 3 Sig: TAKE 1 TABLET BY MOUTH EVERY DAY BECKY: Yes Last seen 12/04/2021 in [place]. Follow up scheduled for 11/19/2022. Prescription(s) as above. Please process accordingly. Tracy Alan LPN documented in this encounterToledo Hospital07-15-2022 Miscellaneous Notes* Telephone Encounter - Ranulfo Blackman Ma - 05/25/2022 2:04 PM EDT Detailed message left for patient. * Telephone Encounter - Oly Smith APRN.CNP - 05/25/2022 12:29 PM EDT The following approved medication requests have been transmitted electronically. Signed Prescriptions Disp Refills budesonide-formoterol (SYMBICORT) 160-4.5 mcg/actuation inhaler 1 Each 0 Sig: Inhale 2 Puffs as instructed twice daily. BECKY: No Authorizing Provider: OLY SMITH APRN.CNP * Telephone Encounter - Telma Austin - 05/25/2022 10:21 AM EDT Patient has been identified by name and date of : Yes Pending Prescriptions Disp Refills SYMBICORT 160 MCG-4.5 MCG/ACTUATION HFA AEROSOL INHALER Sig: Inhale 2 Puffs as instructed twice daily. BECKY: Yes RX INSTRUCTIONS: Patient requesting a call when RX is approved and sent to the pharmacy. Please call patient at: [phone]. Telma Austin documented in this encounterToledo Hospital07-14-2022 Miscellaneous Notes* Telephone Encounter - Manuela Austin - 05/24/2022 10:23 AM EDT Patient returned call and was notified. * Telephone Encounter - Shanelle Toribio RN - 05/23/2022 4:51 PM EDT Attempted to call pt. No answer. Left message for pt. to return call. Please advise of below and close encounter when pt calls back. Thank you. Shanelle Toribio RN * Telephone Encounter - Shanelle Toribio RN - 05/23/2022 4:51 PM EDT ----- Message from Tracy Ramires APRN.CNP sent at 05/22/2022 7:41 AM EDT ----- Please call patient and notify her echocardiogram reveals stable LV function and no significant valve disease. Thank you! documented in this encounterToledo Hospital07-12-2022 Miscellaneous Notes* Result QuickNote - Tracy Ramires APRN.CNP - 05/22/2022 7:41 AM EDT Please call patient and notify her echocardiogram reveals stable LV function and no significant valve disease. Thank you! documented in this encounterToledo Hospital07-01-2022 Instructions* Patient Instructions* Ulises Hermosillo MD - 05/11/2022 2:14 PM EDT FASTING BLOOD WORK IN 3 MONTHS. documented in this encounterToledo Hospital07-01-2022 History of Present illness Narrative* Ulises Hermosillo MD - 05/11/2022 1:35 PM EDT This note was created using NoteWriter. Subjective Patient presents with: Hospital Follow Up Steven Koenig is a 66 year old female. She was admitted 05/02-05/05? For COPD exacerbation. Only ER report was available. She finished Cefdinir and prednisone. She claimed she was discharged on home oxygen, but she had no oxygen today. She was better but not back to baseline. She continued to smoke. She was concerned about recurring blockage to her right leg, due to recurrent ache and tingling. Review of Systems Constitutional: Negative. Respiratory: Positive for cough, shortness of breath and wheezing. Cardiovascular: Negative for chest pain, palpitations and leg swelling. Gastrointestinal: Negative. Genitourinary: Negative. Neurological: Negative for weakness. Right leg ache, tingling. ACTIVE PROBLEM LIST Essential Hypertension Recurrent Major Depression in Partial Remission ([facility]) Bipolar Affective Disorder, Currently Active ([facility]) History of Alcohol Abuse Chronic bronchitis ([facility]) Spinal Stenosis, Lumbar Region Without Neurogenic Claudication Radiculopathy, Lumbar Region Smoker Gerd (Gastroesophageal Reflux Disease) Seasonal Allergies Pad (Peripheral Artery Disease) ([facility]) Anxiety and Depression Prediabetes Chest Pain Other Chest Pain Stenosis of Carotid Artery Mixed Hyperlipidemia Abnormal Stress Test Dyspnea On Exertion Coronary Artery Disease Involving [place] Coronary Artery of [place] Heart Without Angina Pectoris Social History Tobacco Use Smoking status: Current Every Day Smoker Packs/day: 2.00 Years: 54.00 Pack years: 108.00 Types: Cigarettes Smokeless tobacco: Never Used Tobacco comment: down to 1ppd 10/06/19 Vaping Use Vaping Use: Never used Substance Use Topics Alcohol use: Yes Drug use: No Current Outpatient Medications Medication Sig SYMBICORT 160-4.5 mcg/actuation inhaler Inhale 2 Puffs as instructed twice daily. omeprazole (PRILOSEC) 40 mg capsule Take 1 capsule by mouth once daily. traZODone (DESYREL) 100 mg tablet Take 2 tablets by mouth daily at bedtime. lisinopril (ZESTRIL, PRINIVIL) 40 mg tablet Take 1 tablet by mouth once daily. albuterol HFA (VENTOLIN HFA) 90 mcg/actuation inhaler Inhale 2 Puffs as instructed every 6 hours asneeded for wheezing/shortness of breath. venlafaxine ER (EFFEXOR [...] tablet by mouth once daily. Current Facility-Administered Medications Medication Dose Route Frequency perflutren lipid microspheres 1.3 mL in NaCl (PF) 0.9% 10 mL injection (DEFINITY) INTRAVENOUS DIRECTED PRN sodium chloride 0.9 % (flush) 10 mL [...] and Plan ASSESSMENT/PLAN: 1. Chronic bronchitis, unspecified chronic bronchitis type (HCC) - ICD9: 491.9, ICD10: J42 (primarydiagnosis) Hypoxemia? Home Oxygen? Keep pulmonary follow up as scheduled. 2. Recurrent major depression in partial remission (HCC) - ICD9: 296.35, ICD10: F33.41 Stable. Continue medication. Call for refill. 3. Gastroesophageal reflux disease, unspecified whether esophagitis present - ICD9: 530.81, ICD10: K21.9 Controlled. - OMEPRAZOLE 40 MG CAPSULE,DELAYED RELEASE 4. Need for vaccination - ICD9: V05.9, ICD10: Z23 - PNEUMOCOCCAL VACCINE (PREVNAR 20) 5. Bipolar affective disorder, current episode mixed, current episode severity unspecified (HCC) - ICD9: 296.60, ICD10: F31.60 Stable. 6. PAD (peripheral artery disease) (HCC) - ICD9: 443.9, ICD10: I73.9 - PVR LEG SHERIN [facility] - CONSULT TO VASCULAR SURGERY - CBC - COMP METABOLIC PANEL - LIPID PANEL BASIC Ulises Hermosillo MD documented in this encounterToledo Hospital06-27-2022 Miscellaneous Notes* Telephone Encounter - Ranulfo Blackman Ma - 05/07/2022 3:54 PM EDT MURTAZA: 10/19/2021 Last refill: 11/21/2021 QTY: 60 Refills: 5 Patient's request for medication is as follows: Pending Prescriptions Disp Refills TRAZODONE 100 MG TABLET 60 tablet 5 Sig: Take 2 tablets by mouth daily at bedtime. BECKY: No Please approve the above prescription(s) to electronically send to pharmacy. Ranulfo Blackman Ma * Telephone Encounter - Luci Scott Pss - 05/07/2022 8:58 AM EDT Patient has been identified by name and date of : Yes Pending Prescriptions Disp Refills TRAZODONE 100 MG TABLET 60 tablet 5 Sig: Take 2 tablets by mouth daily at bedtime. BECKY: No RX INSTRUCTIONS: Per Patient she is out of medication. Patient aware RX will be sent to pharmacy. No need to notify patient. Luci Austin documented in this encounterToledo Hospital06-25-2022 Hospital Discharge instructions Patient Education 05/05/2022 11:07:44 Chronic Obstructive Pulmonary Disease Chronic Obstructive Pulmonary Disease Chronic obstructive pulmonary disease (COPD) is a long-term (chronic) condition that affects the lungs. COPD is a general term that can be used to describe many different lung problems that cause lung swelling (inflammation) and limit airflow, including chronic bronchitis and emphysema. If you haveCOPD, your lung function will probably never return to normal. In most cases, it gets worse over time. However, there are steps you can take to slow the progression of the disease and improve your quality of life. What are the causes? This condition may be caused by: Smoking. This is the most common cause. Certain genes passed down through families. What increases the risk? The following factors may make you more likely to develop this condition: Secondhand smoke from cigarettes, pipes, or cigars. Exposure to chemicals and other irritants such as fumes and dust in the work environment. Chronic lung conditions or infections. What are the signs or symptoms? Symptoms of this condition include: Shortness of breath, especially during physical activity. Chronic cough with a large amount of thick mucus. Sometimes the cough may not have any mucus (dry cough). Wheezing. Rapid breaths. [place] or bluish discoloration (cyanosis) of the skin, especially in your fingers, toes, or lips. Feeling tired (fatigue). Weight loss. Chest tightness. Frequent infections. Episodes when breathing symptoms become much worse (exacerbations). Swelling in the ankles, feet, or legs. This may occur in later stages of the disease. How is this diagnosed? This condition is diagnosed based on: Your medical history. A physical exam. You may also have tests, including: Lung (pulmonary) function tests. This may include a spirometry test, which measures your ability toexhale properly. Chest X-ray. CT scan. Blood tests. How is this treated? This condition may be treated with: Medicines. These may include inhaled rescue medicines to treat acute exacerbations as well as long-term, or maintenance, medicines to prevent flare- ups of COPD. ?Bronchodilators help treat COPD by dilating the airways to allow increased airflow and make your breathing more comfortable. ?Steroids can reduce airway inflammation and help prevent exacerbations. Smoking cessation. If you smoke, your health care provider may ask you to quit, and may also recommend therapy or replacement products to help you quit. Pulmonary rehabilitation. This may involve working with a team of health care providers and specialists, such as respiratory, occupational, and physical therapists. Exercise and physical activity. These are beneficial for nearly all people with COPD. Nutrition therapy to gain weight, if you are underweight. Oxygen. Supplemental oxygen therapy is only helpful if you have a low oxygen level in your blood (hypoxemia). Lung surgery or transplant. Palliative care. This is to help people with COPD feel comfortable when treatment is no longer working. Follow these instructions at home: Medicines Take eabh-zuq-schaale and prescription medicines (inhaled or pills) only as told by your health care provider. Talk to your health care provider before taking any cough or allergy medicines. You may need to avoid certain medicines that dry out your airways. Lifestyle If you are a smoker, the most important thing that you can do is to stop smoking. Do not use any products that contain nicotine or tobacco, such as cigarettes and e-cigarettes. If you need help quitting, ask your health care provider. Continuing to smoke will cause the disease to progress faster. Avoid exposure to things that irritate your lungs, such as smoke, chemicals, and fumes. Stay active, but balance activity with periods of rest. Exercise and physical activity will help you maintain your ability to do things you want to do. Learn and use relaxation techniques to manage stress and to control your breathing. Get the right amount of sleep and get quality sleep. Most adults need 7 or more hours per night. Eat healthy foods. Eating smaller, more frequent meals and resting before meals may help you maintain your strength. Controlled breathing Learn and use controlled breathing techniques as directed by your health care provider. Controlled breathing techniques include: Pursed lip breathing. Start by breathing in (inhaling) through your nose for 1 second. Then, purse your lips as if you were going to whistle and breathe out (exhale) through the pursed lips for 2 seconds. Diaphragmatic breathing. Start by putting one hand on your abdomen just above your waist. Inhale slowly through your nose. The hand on your abdomen should move out. Then purse your lips and exhale slowly. You should be able to feel the hand on your abdomen moving in as you exhale. Controlled coughing Learn and use controlled coughing to clear mucus from your lungs. Controlled coughing is a series of short, progressive coughs. The steps of controlled coughing are: 1.Lean your head slightly forward. 2.Breathe in deeply using diaphragmatic breathing. 3.Try to hold your breath for 3 seconds. 4.Keep your mouth slightly open while coughing twice. 5.Spit any mucus out into a tissue. 6.Rest and repeat the steps once or twice as needed. General instructions Make sure you receive all the vaccines that your health care provider recommends, especially the pneumococcal and influenza vaccines. Preventing infection and hospitalization is very important when you have COPD. Use oxygen therapy and pulmonary rehabilitation if directed to by your health care provider. If yourequire home oxygen therapy, ask your health care provider whether you should purchase a pulse oximeter to measure your oxygen level at home. Work with your health care provider to develop a COPD action plan. This will help you know what steps to take if your condition gets worse. Keep other chronic health conditions under control as told by your health care provider. Avoid extreme temperature and humidity changes. Avoid contact with people who have an illness that spreads from person to person (is contagious), such as viral infections or pneumonia. Keep all follow-up visits as told by your health care provider. This is important. Contact a health care provider if: You are coughing up more mucus than usual. There is a change in the color or thickness of your mucus. Your breathing is more labored than usual. Your breathing is faster than usual. You have difficulty sleeping. You need to use your rescue medicines or inhalers more often than expected. You have trouble doing routine activities such as getting dressed or walking around the house. Get help right away if: You have shortness of breath while you are resting. You have shortness of breath that prevents you from: ?Being able to talk. ?Performing your usual physical activities. You have chest pain lasting longer than 5 minutes. Your skin color is more blue (cyanotic) than usual. You measure low oxygen saturations for longer than 5 minutes with a pulse oximeter. You have a fever. You feel too tired to breathe normally. Summary Chronic obstructive pulmonary disease (COPD) is a long-term (chronic) condition that affects the lungs. Your lung function will probably never return to normal. In most cases, it gets worse over time. However, there are steps you can take to slow the progression of the disease and improve your quality of life. Treatment for COPD may include taking medicines, quitting smoking, pulmonary rehabilitation, and changes to diet and exercise. As the disease progresses, you may need oxygen therapy, a lung transplant, or palliative care. To help manage your condition, do not smoke, avoid exposure to things that irritate your lungs, stay up to date on all vaccines, and follow your health care provider's instructions for taking medicines. This information is not intended to replace advice given to you by your health care provider. Make sure you discuss any questions you have with your health care provider. Document Released: 08/07/2006 Document Revised: 10/10/2018 Document Reviewed: 12/02/2017 [employer] Patient Education 2020 [employer]. Follow Up Care 05/02/2022 09:30:28 [facility] Address: When: Unknown Comments:[facility] will provide your home oxygen and equipment. Call them when you arrive home and they will deliver your oxygen concentrator to you. Their number is [phone]. With:ULISES HERMOSILLO MD Address: [address] [place] [address]- When:05/11/2022 13:40:00 Comments:The appointment on 05/07 has been moved to 05/11 @1:40 P.M to be with Dr. Hermosillo [facility] 06-22-2022 Evaluation + Plan noteExtracted from: Title:History and Physical Author:SHANTELL SHELLEY MD Date:05/02/22 Acute hypoxic respiratory fa ilure COPD exacerbation Hypertension Coronary artery disease History of alcohol abuse Patient presents with increased dyspnea on exertion and productive cough with increased frequency and production in the past 3 days. Patient was given 125 mg IV Solu-Medrol, 2 g magnesium, and DuoNeb x3. BNP mildly elevated to 344, troponin negative x1. COVID-19 negative. Patient received IV Solu-Medrol and DuoNeb in the outside ED. Continue patient on IV Solu-Medrol and scheduled DuoNeb and budesonide. Wean oxygen as tolerated. Regarding patient's history of coronary artery disease, patient follows with cardiology as an outpatient. She indicates that she last had stent placement 5 months ago. Patient indicates compliance with Plavix though unable to confirm with pharmacy. Continue patient on confirmed cardiac medications in addition to Plavix. [facility] 06-22-2022 SARS-CoV-2 (COVID-19) RNA IVANA+probe Ql (Nph) Negative (05/02/22 4:25 AM)AO Auto Urine [id number] Instructions* Patient Instructions* Tracy Ramires APRN.ANESTHESIOLOGY FACULTY - 04/30/2022 3:57 PM EDT Images from the original note were not included. CORONARY ARTERY DISEASE View image View image WHAT IS CORONARY ARTERY DISEASE? Coronary artery disease (CAD) is a type of heart disease caused by a problem with the blood vesselsthat bring blood and oxygen to the heart muscle. These arteries are called the coronary arteries. This disease increases your risk for heart attack and sudden . WHAT IS THE CAUSE? Fatty deposits called plaque may build up in blood vessels and make them narrower. The narrowing decreases the amount of blood flow to the heart. Plaque also increases the chance that blood clots mayform and block a blood vessel, which can [...] there are symptoms, the most common one ischest pain, called angina. You may feel: A [...] and medical history and examine you. Tests may include: Blood tests An ECG (also called an [...] Taking an aspirin every day may lower yourrisk for a heart attack or stroke. Not everyone should take aspirin. Daily use of aspirin can causeproblems, such as stomach irritation, bleeding, and hearing [...] the health of your heart. Developed by [employer]. Published by [employer]. Copyright 2014 [employer] and/or one of its subsidiaries. All rights reserved. documented in this encounterToledo Hospital06-20-2022 History of Present illness Narrative* Tracy Ramires APRN.CNP - 04/30/2022 3:36 PM EDT Chief Complaint Patient presents with: 6 month check increased SOB History of Present Illness: Steven Koenig is a 66 year old female [...] echocardiogram for further evaluation of SOB. We reviewedcardiac risk factors and modifications. Unfortunately, she continues to smoke. She reports patient taking medications as prescribed and requests for refills were sent to her pharmacy. PAST MEDICAL HISTORY Diagnosis Date Acute pancreatitis 2010 Anisha Cruz Alcohol use disorder 01/18/2016 Dr. Angie Jones, [facility] Anxiety 12/14/2015 Bipolar affective disorder, currently active ([facility]) 01/18/2016 Dr. Angie Jones, [facility] Chronic bronchitis ([facility]) 07/26/2016 Closed skull fracture ([facility]) 1994 [facility], [facility] Coronary artery disease DDD (degenerative disc disease), cervical Endometriosis 2007 Essential hypertension 12/14/2015 GERD (gastroesophageal reflux disease) 03/13/2019 History of colon polyps History of gastric ulcer 12/14/2015 HLD (hyperlipidemia) Injury of left facial nerve 1994 PAD (peripheral artery disease) ([facility]) 09/28/2019 Recurrent major depression in partial remission ([facility]) 12/14/2015 S/P drug eluting coronary [...] TOTAL FACIAL NERVE DECOMPRESSION &/REPAIR Left 1989 [facility] Problem Relation Age of [...] pain (ICD-10 code G89.18). (Patient not taking: Reported on 04/30/2022) 15 tablet 0 hydrOXYzine pamoate (VISTARIL) [...] injection (DEFINITY) INTRAVENOUS DIRECTED PRN Tracy Ramires, COTTON ROLL PACKER.ANESTHESIOLOGY FACULTY sodium chloride 0.9 % (flush) 10 mL (BD POSIFLUSH) 10 mL INTRAVENOUS DIRECTED PRN Tracy Rmaires, COTTON ROLL PACKER.ANESTHESIOLOGY FACULTY perflutren lipid microspheres 1.3 mL in NaCl (PF) 0.9% 10 mL injection (DEFINITY) INTRAVENOUS DIRECTED PRN Tracy Ramires, COTTON ROLL PACKER.ANESTHESIOLOGY FACULTY sodium chloride 0.9 % (flush) 10 mL (BD POSIFLUSH) 10 mL INTRAVENOUS DIRECTED PRN Tracy Ramires, COTTON ROLL PACKER.ANESTHESIOLOGY FACULTY Review of Systems Constitutional: Negative for chills, [...] tingling, sensory change, speech change, focal weakness, lossof consciousness, weakness and headaches. Endo/Heme/Allergies: Does not bruise/bleed easily. Psychiatric/Behavioral: Negative for depression, memory loss and suicidal ideas. The patient is notnervous/anxious and does not have insomnia. Physical Examination: [...] dilated to 2.5mm. The post dilated was performedin kissing fashion, which makes the pot dilation diameter of the proximal LAD portion of the stent 3.7mm, with spiritism of blood flow, no residual stenosis. Assessment and Plan: CAD -S/p RODNEY to LAD and RODNEY to D1 -SOB that has worsened both at rest and with activity. Has upcoming pulmonary evaluation. Will check an echocardiogram for cardiology evaluation -EF 55% -continue [...] 30, 2022, 3:36 PM documented in this encounterToledo Hospital05-24-2022 Miscellaneous Notes* Telephone Encounter - Jasmine Ramos LPN - 04/03/2022 10:00 AM EDT Last see pcp BATCHING OPERATOR 02/14/21. Next appt with BATCHING OPERATOR 05/04/22. * Telephone Encounter - Cailin Simons Pss - 04/03/2022 [...] notify patient. Cailin Austin documented in this encounterToledo Hospital05-03-2022 Instructions* Patient Instructions* Nicole Kenny APRN.ANESTHESIOLOGY FACULTY - 03/13/2022 2:44 PM EDT Cigarette Logs : Record every single smoked cigarette on a cigarette log (either on their smartphone or with paper and pencil) contiguous to the smoking. Logging your smoked cigarettes in real-time (while smoking) helps quantify consumption accurately and helps you and your act of smoking become more mindful versus automatically, habitually without thought or cognizance. You can't change something if you can't measure the change. We discussed behavioral [...] week and then cut back to smoking one cigarette every other hour for the second week, [...] interventions such as changing home environment smoking outside the house only. Avoid smoking the in car while driving. Place cigarettes in hard to reach areas such as in the care trunk, clean out all extra amanda trays Oral Substitutes/Hydration Drinking water is a superb coping technique. Snacking on crunchy, nutrient dense, low calorie foodssuch as chopped peppers, celery, or carrots can be extremely helpful. Using cinnamon sticks, plastic straws, and sugarless gum/ candy are also excellent oral substitutes. Phone [phone] ([phone]) as additional resource. CT Lung Screen Results The CT scan that you will have done today will show if you have any nodules (small spots) in your lungs that are suspicious for cancer. Around 90% of the patients who have this scan done are found tohave at least one nodule. Most nodules are [...] likelihood of becoming cancer due to size or lack of growth Less than 1% 1 Year [...] - Referral to cardiology for further work-up and recommendations. Thyroid Nodule - TSH level and Thyroid Ultrasound dependent on size, referral to endocrinology. Adrenal Nodule - Blood work and referral to endocrinology. Others Lung Cancer Screening hotline: [phone] Lung Cancer Screening [phone] Billing Questions: or [email or web address] Lung Cancer Screening Team: Linda Meyer CNP; Crystal Kenny CNP; Eri Cheung CNP; Agata Cruz CNP, Naz Shah PA-C: [phone] Bouchra Cuenca PA-C documented in this encounterToledo Hospital05-03-2022 History of Present illness Narrative* Nicole Kenny, COTTON ROLL PACKER.ANESTHESIOLOGY FACULTY - 03/13/2022 2:10 PM EDT Images from [...] to have screening. HISTORY OF PRESENT ILLNESS: Steven Koenig is a 66 year old active [...] 50% of waking hrs. Modified Medical Research [place] Dyspnea Scale (MMRC) On level ground I [...] Alcohol use disorder 01/18/2016 Dr. Angie Jones, [facility] Anxiety 12/14/2015 Bipolar affective disorder, currently active ([facility]) 01/18/2016 Dr. Angie Jones, [facility] Chronic bronchitis ([facility]) 07/26/2016 Closed skull fracture ([facility]) 1994 [facility], [facility] Coronary artery disease DDD (degenerative disc disease), cervical Endometriosis 2007 Essential hypertension 12/14/2015 GERD (gastroesophageal reflux disease) 03/13/2019 History of colon polyps History of gastric ulcer 12/14/2015 HLD (hyperlipidemia) Injury of left facial nerve 1994 PAD (peripheral artery disease) ([facility]) 09/28/2019 Recurrent major depression in partial remission ([facility]) 12/14/2015 S/P drug eluting coronary [...] TOTAL FACIAL NERVE DECOMPRESSION &/REPAIR Left 1989 [facility] Problem Relation Age of [...] 6 hours asneeded for wheezing/shortness of breath. nicotine (NICODERM) 21 [...] three times daily as needed for Anxiety. clopidogrel (PLAVIX) 75 mg tablet Take 1 tablet by mouth once daily. ALLERGIES No Known Allergies The medications and allergies were reviewed and reconciled for this patient and deemed current. Health Maintenance Immunization History Administered Date(s) Administered COVID-19 vaccine, age 12+ yr (rumr: turn off the lights-28msec - SIGALA TOP) 11/21/2021 Influenza Seasonal Inj Quad Age 6 Mo - 64 Yrs 01/06/2020 Pneumovax 04/21/2018 influenza, high-dose, quadrivalent vaccine (FLUZONE HIGH DOSE QUADRIVALENT) 08/23/2020 Colonoscopy: 04/03/2017 Mammogram: DATA REVIEW I have directly visualized the testing documented: Prior Imaging: CT: Yes Year 2020 Abnormal Done at [facility] 01/2021 CXR: Yes 2020 Abnormal Nonspecific prominence of bronchovascular markings at the lung bases. No consolidation. No lung mass. No pleural effusion. No pneumothorax. Pulmonary Function Testing: PFT:No textual results found for the specified procedure(s). PHYSICAL EXAM: BP 157/76 (BP Site: Left Arm, BP Position: Sitting, BP Cuff Size: Regular Adult) Pulse 81 Ht 165.1 cm (5' 5") Wt 60.9 kg (134 lb 4.8 oz) [...] risk for lung cancer: 23.1 % Source: [employer] https://[employer]/Pashto/result/female_[email or web address]_yes_unknown_66_108 http://www.[employer]/tiny/oa8j0 I have determined that the patient is eligible for a low dose CT based on age, absence of signs or symptoms of lung cancer, and total pack years: Yes. The patient and I engaged in shared decision making, including the use of one or more decision aids, to include benefits, harms, follow-up diagnostic testing, over-diagnosis, false positive rate, andtotal radiation exposure. The patient understands and feels [...] on the importance of smoking cessation if currentsmoker and, if appropriate, offered additional tobacco cessation [...] week and then cut back to smoking one cigarette every other hour for the second week, [...] on a cigarette log (either on their smartphone or with paper and pencil) contiguous to the smoking. Logging your smoked cigarettes in real-time (while smoking) helps quantify consumption accurately and helps you and your act of smoking become more mindful versus automatically, habitually without thought or cognizance. You can't change something if you can't measure the change. Oral Substitutes/Hydration Drinking water is a superb coping technique. Snacking on crunchy, nutrient dense, low calorie foodssuch as chopped peppers, celery, or carrots can be extremely helpful. Using cinnamon sticks, plastic straws, and sugarless gum/ candy are also excellent oral substitutes. Phone [phone] ([phone]) as additional resource. The medical conditions adversely [...] which included preparing to see the patient, [id number] patient care, completing clinical documentation, obtaining and/or reviewing separately obtained history, performing a medically appropriate examination, counseling and educating the pat ient/family/caregiver, ordering medications, tests, or procedures and communicating results to the patient/family/caregiver. Nicole Kenny APRN.ANESTHESIOLOGY FACULTY NPI #: March 13, 2022 2:10 PM documented in this encounterToledo Hospital04-21-2022 Miscellaneous Notes* Telephone Encounter - Joyce Woody APRN.CNS - 03/01/2022 3:53 PM EDT please schedule visit with Ulises Hermosillo MD or Oly Smith * Telephone Encounter - Jasmine Ramos LPN - 03/01/2022 2:31 PM EDT last seen 02/14/21 * Telephone Encounter - Isadora Anglin - 03/01/2022 1:50 PM EDT Patient has been identified by name and date of : Yes Pending Prescriptions Disp Refills VENLAFAXINE ER 150 MG CAPSULE,EXTENDED RELEASE 24 HR 90 capsule 0 Sig: Take 1 capsule by mouth once daily. BECKY: No RX INSTRUCTIONS: Patient aware RX will be sent to pharmacy. No need to notify patient. Isadora Anglin documented in this encounterToledo Hospital11-30-2021 NoteHNO ID: [id number] Author: RT Hiral(R) Service: Radiology Author Type: Technologist Type: Progress Notes Filed: 10/10/2021 11:15 AM Note Text: Radiology Service Progress Note PATIENT NAME: Steven Koenig DATE OF SERVICE: October 10, 2021 [...] BY: RT Hiral(R) October 10, 2021 11:15 [facility] NoteHNO ID: [id number] Author: Tracy Ramires APRN.ANESTHESIOLOGY FACULTY Service: ? Author Type: Nurse Practitioner Type: Progress Notes Filed: 09/28/2021 11:09 AM Note Text: Chief Complaint Patient presents with: Cardiology Follow Up : mixes hyperlipidemia History of Present Illness: Steven Koenig is a 66 year old female who presents for hospital follow up. She has a PMhx of CAD (s/p RODNEY to LAD and D1 08/25/2021), HLD, HTN, PAD, COPD, current smoker. She was last seen by myself on 06/12/2021 at our [place] office. Stress testing was done d/t symptoms and need for cardiac clearance. TID ratio was elevated so she was recommended a C and ultimately had PCI of the [...] - Bipolar affective disorder, currently active ([facility]) [facility] - Chronic bronchitis (HCC) 07/26/2016 - Closed skull fracture ([facility]) 1994 [facility], [facility] - Coronary artery disease - DDD (degenerative disc disease), cervical - Endometriosis 2007 - Essential hypertension 12/14/2015 - GERD (gastroesophageal reflux disease) 03/13/2019 - History of colon polyps - History of gastric ulcer 12/14/2015 - HLD (hyperlipidemia) - Injury of left facial nerve 1994 - PAD (peripheral artery disease) ([facility]) 09/28/2019 - Recurrent major depression in partial remission ([facility]) 12/14/2015 - S/P drug eluting coronary stent placement 08/25/2021 LAD and Dg2 - Spinal stenosis PAST SURGICAL HISTORY Procedure Laterality Date - APPENDECTOMY 1979 - COLONOSCOP W/ OR W/O BRSH SPEC 2010 Colonoscopy - COLONOSCOPY 04/03/2017 diverticulosis- repeat 10 years - DECOMPRESS FACIAL NERVE,TOTAL Left 1989 [facility] - EGD 04/03/2017 Gastritis, duodenitis, GERD with [...] tablet 0 - camron (more content not included)...[facility]10-04-2021 Note HNO ID: [id number] Author: MAISHA Alicea Service: Radiology Author Type: Clinical Sign Artist Type: Progress Notes Filed: 08/14/2021 4:04 PM [...] POST EXAM PIV STATUS: Discontinued PROCEDURE TYPE: MS Stress: 12.6mCi [id number] was administered IV for Rest Imaging at 13:45 by MAISHA Alicea. 30.5 mCi [id number] was administered IV for Stress Imaging at 15:40 by MAISHA Alicea. PATIENT DISCHARGED TO: Ambulatory patient, left MS department area. A Diagnostic radioactive procedure has taken place, with no further precautions necessary other than routine body substance precautions. More information regarding radiation safety can be found using this link: [email or web address] SIGNATURE: MAISHA Alicea PATIENT NAME: Steven Koenig DATE: August 14, 2021 TIME: 4:03 PM PAGER/CONTACT #[facility] [id number] History of Present illness Narrative* Carol Godinez (Tech), Tech - 01/27/2021 10:30 AM EDT Radiology Service Progress Note PATIENT NAME: Steven Koenig DATE OF SERVICE: January 27, 2021 TIME: 10:19 AM PATIENT IDENTITY VERIFICATION COMPLETED USING TWO (2) IDENTIFIERS: Name and Date of confirmedby patient verbally. FALL SCREENING: Has the patient had 2 falls in the last year or 1 fall with injury or currently using an Ambulatory Assistive Device (Walker, Cane, Wheelchair, Crutches, etc.)? No PATIENT GENDER DATA: Female. status: : No status: NO. PATIENT RELEVANT IMPLANT DATA REVIEWED: Not Applicable RADIOLOGY DEPARTMENT: General X-ray: Exam(s) Completed: Pelvis X-Ray: Pelvis with Hip Bilateral PERIPHERAL IV DATA: Not applicable SIGNED BY: Alcides Hernandes January 27, 2021 10:19 AM documented in this encounterToledo Hospital03-19-2021 History of Present illness Narrative* Carol Godinez Tech (Tech) - 01/27/2021 10:20 AM EDT Radiology Service Progress Note PATIENT NAME: Steven Koenig DATE OF SERVICE: January 27, 2021 TIME: 10:18 AM PATIENT IDENTITY VERIFICATION COMPLETED USING TWO (2) IDENTIFIERS: Name and Date of confirmedby patient verbally. FALL SCREENING: Has the patient had 2 falls in the last year or 1 fall with injury or currently using an Ambulatory Assistive Device (Walker, Cane, Wheelchair, Crutches, etc.)? No PATIENT GENDER DATA: Female. status: : No status: NO. PATIENT RELEVANT IMPLANT DATA REVIEWED: Not Applicable RADIOLOGY DEPARTMENT: General X-ray: Exam(s) Completed: Chest X-Ray PERIPHERAL IV DATA: Not applicable SIGNED BY: Alcides Hernandes January 27, 2021 10:18 AM documented in this encounterToledo Hospital08-27-2020 History of Past illness Narrative* Problem Noted Date Resolved Date Asthma 07/07/2020 07/07/2020 Hypomagnesemia 10/22/2019 10/23/2019 Last Assessment & Plan: Replete mag today Preop cardiovascular exam 09/28/20192018 Precordial pain, short lived , 3-5 minutes, nonexertional, no evidence of stress-induced ischemia on dobutamine echo in January 2019. 09/28/2019 07/07/2020 Last Assessment & Plan: Assessment: Cardiac clearance obtained from Dr. Roth 09/2019. Stress Echo-CONCLUSIONS: - Exam indication: CP - ECG uninterpretable OR unable to exercise - The dobutamine stress echo was negative for ischemia at 89 % of MPHR. - The left ventricle is normal in size. Left ventricular systolic function is mildly decreased. EF = 52 5% (2D 4-ch.) Normal left ventricular diastolic function. -There appears to be a redundant chord mid LV. - The patient has not had a prior CC echocardiographic exam for comparison. History of total right hip arthroplasty 03/25/20 19 07/07/2020 Primary osteoarthritis of right hip 03/13/2019 10/06/2019 Hyperkalemia 07/27/2016 11/27/2018 Polycythemia 07/27/2016 11/27/2018 Overview: recheck Anxiety 12/14/2015 01/06/2021 documented as of this encounter (statuses as of 03/01/2022) [facility] History of Past illness Narrative* Problem Noted Date Resolved Date Asthma 07/07/2020 07/07/2020 Hypomagnesemia 10/22/2019 10/23/2019 Last Assessment & Plan: Replete mag today Preop cardiovascular exam 09/28/20192018 Precordial pain, short lived , 3-5 minutes, nonexertional, no evidence of stress-induced ischemia on dobutamine echo in January 2019. 09/28/2019 07/07/2020 Last Assessment & Plan: Assessment: Cardiac clearance obtained from Dr. Roth 09/2019. Stress Echo-CONCLUSIONS: - Exam indication: CP - ECG uninterpretable OR unable to exercise - The dobutamine stress echo was negative for ischemia at 89 % of MPHR. - The left ventricle is normal in size. Left ventricular systolic function is mildly decreased. EF = 52 5% (2D 4-ch.) Normal left ventricular diastolic function. -There appears to be a redundant chord mid LV. - The patient has not had a prior CC echocardiographic exam for comparison. History of total right hip arthroplasty 03/25/2007/07/2020 Primary osteoarthritis of right hip 03/13/2019 10/06/2019 Hyperkalemia 07/27/2016 11/27/2018 Polycythemia 07/27/2016 11/27/2018 Overview: recheck Anxiety 12/14/2015 01/06/2021 documented as of this encounter (statuses as of 03/13/2022) [facility]2020 History of Past illness Narrative* Problem Noted Date Resolved Date Asthma 07/07/2020 07/07/2020 Hypomagnesemia 10/22/2019 10/23/2019 Last Assessment & Plan: Replete mag today Preop cardiovascular exam 09/28/20192018 Precordial pain, short lived , 3-5 minutes, nonexertional, no evidence of stress-induced ischemia on dobutamine echo in January 2019. 09/28/2019 07/07/2020 Last Assessment & Plan: Assessment: Cardiac clearance obtained from Dr. Roth 09/2019. Stress Echo-CONCLUSIONS: - Exam indication: CP - ECG uninterpretable OR unable to exercise - The dobutamine stress echo was negative for ischemia at 89 % of MPHR. - The left ventricle is normal in size. Left ventricular systolic function is mildly decreased. EF = 52 5% (2D 4-ch.) Normal left ventricular diastolic function. -There appears to be a redundant chord mid LV. - The patient has not had a prior CC echocardiographic exam for comparison. History of total right hip arthroplasty 03/25/2007/07/2020 Primary osteoarthritis of right hip 03/13/2019 10/06/2019 Hyperkalemia 07/27/2016 11/27/2018 Polycythemia 07/27/2016 11/27/2018 Overview: recheck Anxiety 12/14/2015 01/06/2021 documented as of this encounter (statuses as of 03/23/2022) [facility] History of Past illness Narrative* Problem Noted Date Resolved Date Asthma 07/07/2020 07/07/2020 Hypomagnesemia 10/22/2019 10/23/2019 Last Assessment & Plan: Replete mag today Preop cardiovascular exam 09/28/20192018 Precordial pain, short lived , 3-5 minutes, nonexertional, no evidence of stress-induced ischemia on dobutamine echo in January 2019. 09/28/2019 07/07/2020 Last Assessment & Plan: Assessment: Cardiac clearance obtained from Dr. Roth 09/2019. Stress Echo-CONCLUSIONS: - Exam indication: CP - ECG uninterpretable OR unable to exercise - The dobutamine stress echo was negative for ischemia at 89 % of MPHR. - The left ventricle is normal in size. Left ventricular systolic function is mildly decreased. EF = 52 5% (2D 4-ch.) Normal left ventricular diastolic function. -There appears to be a redundant chord mid LV. - The patient has not had a prior CC echocardiographic exam for comparison. History of total right hip arthroplasty 03/25/20 19 07/07/2020 Primary osteoarthritis of right hip 03/13/2019 10/06/2019 Hyperkalemia 07/27/2016 11/27/2018 Polycythemia 07/27/2016 11/27/2018 Overview: recheck Anxiety 12/14/2015 01/06/2021 documented as of this encounter (statuses as of 04/03/2022) [facility] History of Past illness Narrative* Problem Noted Date Resolved Date Asthma 07/07/2020 07/07/2020 Hypomagnesemia 10/22/2019 10/23/2019 Last Assessment & Plan: Replete mag today Preop cardiovascular exam 09/28/20192018 Precordial pain, short lived , 3-5 minutes, nonexertional, no evidence of stress-induced ischemia on dobutamine echo in January 2019. 09/28/2019 07/07/2020 Last Assessment & Plan: Assessment: Cardiac clearance obtained from Dr. Roth 09/2019. Stress Echo-CONCLUSIONS: - Exam indication: CP - ECG uninterpretable OR unable to exercise - The dobutamine stress echo was negative for ischemia at 89 % of MPHR. - The left ventricle is normal in size. Left ventricular systolic function is mildly decreased. EF = 52 5% (2D 4-ch.) Normal left ventricular diastolic function. -There appears to be a redundant chord mid LV. - The patient has not had a prior CC echocardiographic exam for comparison. History of total right hip arthroplasty 03/25/20 19 07/07/2020 Primary osteoarthritis of right hip 03/13/2019 10/06/2019 Hyperkalemia 07/27/2016 11/27/2018 Polycythemia 07/27/2016 11/27/2018 Overview: recheck Anxiety 12/14/2015 01/06/2021 documented as of this encounter (statuses as of 05/03/2022) [facility] History of Past illness Narrative* Problem Noted Date Resolved Date Asthma 07/07/2020 07/07/2020 Hypomagnesemia 10/22/2019 10/23/2019 Last Assessment & Plan: Replete mag today Preop cardiovascular exam 09/28/20192018 Precordial pain, short lived , 3-5 minutes, nonexertional, no evidence of stress-induced ischemia on dobutamine echo in January 2019. 09/28/2019 07/07/2020 Last Assessment & Plan: Assessment: Cardiac clearance obtained from Dr. Roth 09/2019. Stress Echo-CONCLUSIONS: - Exam indication: CP - ECG uninterpretable OR unable to exercise - The dobutamine stress echo was negative for ischemia at 89 % of MPHR. - The left ventricle is normal in size. Left ventricular systolic function is mildly decreased. EF = 52 5% (2D 4-ch.) Normal left ventricular diastolic function. -There appears to be a redundant chord mid LV. - The patient has not had a prior CC echocardiographic exam for comparison. History of total right hip arthroplasty 03/25/20 19 07/07/2020 Primary osteoarthritis of right hip 03/13/2019 10/06/2019 Hyperkalemia 07/27/2016 11/27/2018 Polycythemia 07/27/2016 11/27/2018 Overview: lyubov Anxiety 12/14/2015 01/06/2021 documented as of this encounter (statuses as of 05/07/2022) [facility] History of Past illness Narrative* Problem Noted Date Resolved Date Asthma 07/07/2020 07/07/2020 Hypomagnesemia 10/22/2019 10/23/2019 Last Assessment & Plan: Replete mag today Preop cardiovascular exam 09/28/20192018 Precordial pain, short lived , 3-5 minutes, nonexertional, no evidence of stress-induced ischemia on dobutamine echo in January 2019. 09/28/2019 07/07/2020 Last Assessment & Plan: Assessment: Cardiac clearance obtained from Dr. Roth 09/2019. Stress Echo-CONCLUSIONS: - Exam indication: CP - ECG uninterpretable OR unable to exercise - The dobutamine stress echo was negative for ischemia at 89 % of MPHR. - The left ventricle is normal in size. Left ventricular systolic function is mildly decreased. EF = 52 5% (2D 4-ch.) Normal left ventricular diastolic function. -There appears to be a redundant chord mid LV. - The patient has not had a prior CC echocardiographic exam for comparison. History of total right hip arthroplasty 03/25/20 19 07/07/2020 Primary osteoarthritis of right hip 03/13/2019 10/06/2019 Hyperkalemia 07/27/2016 11/27/2018 Polycythemia 07/27/2016 11/27/2018 Overview: recheck Anxiety 12/14/2015 01/06/2021 documented as of this encounter (statuses as of 05/11/2022) [facility] History of Past illness Narrative* Problem Noted Date Resolved Date Asthma 07/07/2020 07/07/2020 Hypomagnesemia 10/22/2019 10/23/2019 Last Assessment & Plan: Replete mag today Preop cardiovascular exam 09/28/20192018 Precordial pain, short lived , 3-5 minutes, nonexertional, no evidence of stress-induced ischemia on dobutamine echo in January 2019. 09/28/2019 07/07/2020 Last Assessment & Plan: Assessment: Cardiac clearance obtained from Dr. Roth 09/2019. Stress Echo-CONCLUSIONS: - Exam indication: CP - ECG uninterpretable OR unable to exercise - The dobutamine stress echo was negative for ischemia at 89 % of MPHR. - The left ventricle is normal in size. Left ventricular systolic function is mildly decreased. EF = 52 5% (2D 4-ch.) Normal left ventricular diastolic function. -There appears to be a redundant chord mid LV. - The patient has not had a prior CC echocardiographic exam for comparison. History of total right hip arthroplasty 03/25/20 19 07/07/2020 Primary osteoarthritis of right hip 03/13/2019 10/06/2019 Hyperkalemia 07/27/2016 11/27/2018 Polycythemia 07/27/2016 11/27/2018 Overview: recheck Anxiety 12/14/2015 01/06/2021 documented as of this encounter (statuses as of 05/23/2022) [facility] History of Past illness Narrative* Problem Noted Date Resolved Date Asthma 07/07/2020 07/07/2020 Hypomagnesemia 10/22/2019 10/23/2019 Last Assessment & Plan: [facility] today Preop cardiovascular exam 09/28/20192018 Precordial pain, short lived , 3-5 minutes, nonexertional, no evidence of stress-induced ischemia on dobutamine echo in January 2019. 09/28/2019 07/07/2020 Last Assessment & Plan: Assessment: Cardiac clearance obtained from Dr. Roth 09/2019. Stress Echo-CONCLUSIONS: - Exam indication: CP - ECG uninterpretable OR unable to exercise - The dobutamine stress echo was negative for ischemia at 89 % of MPHR. - The left ventricle is normal in size. Left ventricular systolic function is mildly decreased. EF = 52 5% (2D 4-ch.) Normal left ventricular diastolic function. -There appears to be a redundant chord mid LV. - The patient has not had a prior CC echocardiographic exam for comparison. History of total right hip arthroplasty 03/25/2007/07/2020 Primary osteoarthritis of right hip 03/13/2019 10/06/2019 Hyperkalemia 07/27/2016 11/27/2018 Polycythemia 07/27/2016 11/27/2018 Overview: recheck Anxiety 12/14/2015 01/06/2021 documented as of this encounter (statuses as of 05/24/2022) [facility] History of Past illness Narrative* Problem Noted Date Resolved Date Asthma 07/07/2020 07/07/2020 Hypomagnesemia 10/22/2019 10/23/2019 Last Assessment & Plan: Replete mag today Preop cardiovascular exam 09/28/20192018 Precordial pain, short lived , 3-5 minutes, nonexertional, no evidence of stress-induced ischemia on dobutamine echo in January 2019. 09/28/2019 07/07/2020 Last Assessment & Plan: Assessment: Cardiac clearance obtained from Dr. Roth 09/2019. Stress Echo-CONCLUSIONS: - Exam indication: CP - ECG uninterpretable OR unable to exercise - The dobutamine stress echo was negative for ischemia at 89 % of MPHR. - The left ventricle is normal in size. Left ventricular systolic function is mildly decreased. EF = 52 5% (2D 4-ch.) Normal left ventricular diastolic function. -There appears to be a redundant chord mid LV. - The patient has not had a prior CC echocardiographic exam for comparison. History of total right hip arthroplasty 03/25/2007/07/2020 Primary osteoarthritis of right hip 03/13/2019 10/06/2019 Hyperkalemia 07/27/2016 11/27/2018 Polycythemia 07/27/2016 11/27/2018 Overview: recheck Anxiety 12/14/2015 01/06/2021 documented as of this encounter (statuses as of 05/25/2022) [facility] History of Past illness Narrative* Problem Noted Date Resolved Date Asthma 07/07/2020 07/07/2020 Hypomagnesemia 10/22/2019 10/23/2019 Last Assessment & Plan: Replete mag today Preop cardiovascular exam 09/28/20192018 Precordial pain, short lived , 3-5 minutes, nonexertional, no evidence of stress-induced ischemia on dobutamine echo in January 2019. 09/28/2019 07/07/2020 Last Assessment & Plan: Assessment: Cardiac clearance obtained from Dr. Roth 09/2019. Stress Echo-CONCLUSIONS: - Exam indication: CP - ECG uninterpretable OR unable to exercise - The dobutamine stress echo was negative for ischemia at 89 % of MPHR. - The left ventricle is normal in size. Left ventricular systolic function is mildly decreased. EF = 52 5% (2D 4-ch.) Normal left ventricular diastolic function. -There appears to be a redundant chord mid LV. - The patient has not had a prior CC echocardiographic exam for comparison. History of total right hip arthroplasty 03/25/2007/07/2020 Primary osteoarthritis of right hip 03/13/2019 10/06/2019 Hyperkalemia 07/27/2016 11/27/2018 Polycythemia 07/27/2016 11/27/2018 Overview: recheck Anxiety 12/14/2015 01/06/2021 documented as of this encounter (statuses as of 05/29/2022) [facility] History of Past illness Narrative* Problem Noted Date Resolved Date Asthma 07/07/2020 07/07/2020 Hypomagnesemia 10/22/2019 10/23/2019 Last Assessment & Plan: Replete mag today Preop cardiovascular exam 09/28/20192018 Precordial pain, short lived , 3-5 minutes, nonexertional, no evidence of stress-induced ischemia on dobutamine echo in January 2019. 09/28/2019 07/07/2020 Last Assessment & Plan: Assessment: Cardiac clearance obtained from Dr. Roth 09/2019. Stress Echo-CONCLUSIONS: - Exam indication: CP - ECG uninterpretable OR unable to exercise - The dobutamine stress echo was negative for ischemia at 89 % of MPHR. - The left ventricle is normal in size. Left ventricular systolic function is mildly decreased. EF = 52 5% (2D 4-ch.) Normal left ventricular diastolic function. -There appears to be a redundant chord mid LV. - The patient has not had a prior CC echocardiographic exam for comparison. History of total right hip arthroplasty 03/25/2007/07/2020 Primary osteoarthritis of right hip 03/13/2019 10/06/2019 Hyperkalemia 07/27/2016 11/27/2018 Polycythemia 07/27/2016 11/27/2018 Overview: recheck Anxiety 12/14/2015 01/06/2021 documented as of this encounter (statuses as of 05/30/2022) [facility] History of Past illness Narrative* Problem Noted Date Resolved Date Asthma 07/07/2020 07/07/2020 Hypomagnesemia 10/22/2019 10/23/2019 Last Assessment & Plan: Replete mag today Preop cardiovascular exam 09/28/20192018 Precordial pain, short lived , 3-5 minutes, nonexertional, no evidence of stress-induced ischemia on dobutamine echo in January 2019. 09/28/2019 07/07/2020 Last Assessment & Plan: Assessment: Cardiac clearance obtained from Dr. Roth 09/2019. Stress Echo-CONCLUSIONS: - Exam indication: CP - ECG uninterpretable OR unable to exercise - The dobutamine stress echo was negative for ischemia at 89 % of MPHR. - The left ventricle is normal in size. Left ventricular systolic function is mildly decreased. EF = 52 5% (2D 4-ch.) Normal left ventricular diastolic function. -There appears to be a redundant chord mid LV. - The patient has not had a prior CC echocardiographic exam for comparison. History of total right hip arthroplasty 03/25/2007/07/2020 Primary osteoarthritis of right hip 03/13/2019 10/06/2019 Hyperkalemia 07/27/2016 11/27/2018 Polycythemia 07/27/2016 11/27/2018 Overview: recheck Anxiety 12/14/2015 01/06/2021 documented as of this encounter (statuses as of 05/30/2022) [facility] History of Past illness Narrative* Problem Noted Date Resolved Date Asthma 07/07/2020 07/07/2020 Hypomagnesemia 10/22/2019 10/23/2019 Last Assessment & Plan: Replete mag today Preop cardiovascular exam 09/28/20192018 Precordial pain, short lived , 3-5 minutes, nonexertional, no evidence of stress-induced ischemia on dobutamine echo in January 2019. 09/28/2019 07/07/2020 Last Assessment & Plan: Assessment: Cardiac clearance obtained from Dr. Roth 09/2019. Stress Echo-CONCLUSIONS: - Exam indication: CP - ECG uninterpretable OR unable to exercise - The dobutamine stress echo was negative for ischemia at 89 % of MPHR. - The left ventricle is normal in size. Left ventricular systolic function is mildly decreased. EF = 52 5% (2D 4-ch.) Normal left ventricular diastolic function. -There appears to be a redundant chord mid LV. - The patient has not had a prior CC echocardiographic exam for comparison. History of total right hip arthroplasty 03/25/20 19 07/07/2020 Primary osteoarthritis of right hip 03/13/2019 10/06/2019 Hyperkalemia 07/27/2016 11/27/2018 Polycythemia 07/27/2016 11/27/2018 Overview: recheck Anxiety 12/14/2015 01/06/2021 documented as of this encounter (statuses as of 06/01/2022) [facility] History of Past illness Narrative* Problem Noted Date Resolved Date Asthma 07/07/2020 07/07/2020 Hypomagnesemia 10/22/2019 10/23/2019 Last Assessment & Plan: Replete mag today Preop cardiovascular exam 09/28/20192018 Precordial pain, short lived , 3-5 minutes, nonexertional, no evidence of stress-induced ischemia on dobutamine echo in January 2019. 09/28/2019 07/07/2020 Last Assessment & Plan: Assessment: Cardiac clearance obtained from Dr. Roth 09/2019. Stress Echo-CONCLUSIONS: - Exam indication: CP - ECG uninterpretable OR unable to exercise - The dobutamine stress echo was negative for ischemia at 89 % of MPHR. - The left ventricle is normal in size. Left ventricular systolic function is mildly decreased. EF = 52 5% (2D 4-ch.) Normal left ventricular diastolic function. -There appears to be a redundant chord mid LV. - The patient has not had a prior CC echocardiographic exam for comparison. History of total right hip arthroplasty 03/25/20 19 07/07/2020 Primary osteoarthritis of right hip 03/13/2019 10/06/2019 Hyperkalemia 07/27/2016 11/27/2018 Polycythemia 07/27/2016 11/27/2018 Overview: recheck Anxiety 12/14/2015 01/06/2021 documented as of this encounter (statuses as of 06/04/2022) [facility] History of Past illness Narrative* Problem Noted Date Resolved Date Asthma 07/07/2020 07/07/2020 Hypomagnesemia 10/22/2019 10/23/2019 Last Assessment & Plan: Replete mag today Preop cardiovascular exam 09/28/20192018 Precordial pain, short lived , 3-5 minutes, nonexertional, no evidence of stress-induced ischemia on dobutamine echo in January 2019. 09/28/2019 07/07/2020 Last Assessment & Plan: Assessment: Cardiac clearance obtained from Dr. Roth 09/2019. Stress Echo-CONCLUSIONS: - Exam indication: CP - ECG uninterpretable OR unable to exercise - The dobutamine stress echo was negative for ischemia at 89 % of MPHR. - The left ventricle is normal in size. Left ventricular systolic function is mildly decreased. EF = 52 5% (2D 4-ch.) Normal left ventricular diastolic function. -There appears to be a redundant chord mid LV. - The patient has not had a prior CC echocardiographic exam for comparison. History of total right hip arthroplasty 03/25/20 19 07/07/2020 Primary osteoarthritis of right hip 03/13/2019 10/06/2019 Hyperkalemia 07/27/2016 11/27/2018 Polycythemia 07/27/2016 11/27/2018 Overview: recheck Anxiety 12/14/2015 01/06/2021 documented as of this encounter (statuses as of 06/06/2022) [facility] History of Past illness Narrative* Problem Noted Date Resolved Date Asthma 07/07/2020 07/07/2020 Hypomagnesemia 10/22/2019 10/23/2019 Last Assessment & Plan: Replete mag today Preop cardiovascular exam 09/28/20192018 Precordial pain, short lived , 3-5 minutes, nonexertional, no evidence of stress-induced ischemia on dobutamine echo in January 2019. 09/28/2019 07/07/2020 Last Assessment & Plan: Assessment: Cardiac clearance obtained from Dr. Roth 09/2019. Stress Echo-CONCLUSIONS: - Exam indication: CP - ECG uninterpretable OR unable to exercise - The dobutamine stress echo was negative for ischemia at 89 % of MPHR. - The left ventricle is normal in size. Left ventricular systolic function is mildly decreased. EF = 52 5% (2D 4-ch.) Normal left ventricular diastolic function. -There appears to be a redundant chord mid LV. - The patient has not had a prior CC echocardiographic exam for comparison. History of total right hip arthroplasty 03/25/2007/07/2020 Primary osteoarthritis of right hip 03/13/2019 10/06/2019 Hyperkalemia 07/27/2016 11/27/2018 Polycythemia 07/27/2016 11/27/2018 Overview: recheck Anxiety 12/14/2015 01/06/2021 documented as of this encounter (statuses as of 06/06/2022) [facility] History of Past illness Narrative* Problem Noted Date Resolved Date Asthma 07/07/2020 07/07/2020 Hypomagnesemia 10/22/2019 10/23/2019 Last Assessment & Plan: Replete mag today Preop cardiovascular exam 09/28/20192018 Precordial pain, short lived , 3-5 minutes, nonexertional, no evidence of stress-induced ischemia on dobutamine echo in January 2019. 09/28/2019 07/07/2020 Last Assessment & Plan: Assessment: Cardiac clearance obtained from Dr. Roth 09/2019. Stress Echo-CONCLUSIONS: - Exam indication: CP - ECG uninterpretable OR unable to exercise - The dobutamine stress echo was negative for ischemia at 89 % of MPHR. - The left ventricle is normal in size. Left ventricular systolic function is mildly decreased. EF = 52 5% (2D 4-ch.) Normal left ventricular diastolic function. -There appears to be a redundant chord mid LV. - The patient has not had a prior CC echocardiographic exam for comparison. History of total right hip arthroplasty 03/25/20 19 07/07/2020 Primary osteoarthritis of right hip 03/13/2019 10/06/2019 Hyperkalemia 07/27/2016 11/27/2018 Polycythemia 07/27/2016 11/27/2018 Overview: recheck Anxiety 12/14/2015 01/06/2021 documented as of this encounter (statuses as of 06/15/2022) [facility] History of Past illness Narrative* Problem Noted Date Resolved Date Asthma 07/07/2020 07/07/2020 Hypomagnesemia 10/22/2019 10/23/2019 Last Assessment & Plan: Replete mag today Preop cardiovascular exam 09/28/20192018 Precordial pain, short lived , 3-5 minutes, nonexertional, no evidence of stress-induced ischemia on dobutamine echo in January 2019. 09/28/2019 07/07/2020 Last Assessment & Plan: Assessment: Cardiac clearance obtained from Dr. Roth 09/2019. Stress Echo-CONCLUSIONS: - Exam indication: CP - ECG uninterpretable OR unable to exercise - The dobutamine stress echo was negative for ischemia at 89 % of MPHR. - The left ventricle is normal in size. Left ventricular systolic function is mildly decreased. EF = 52 5% (2D 4-ch.) Normal left ventricular diastolic function. -There appears to be a redundant chord mid LV. - The patient has not had a prior CC echocardiographic exam for comparison. History of total right hip arthroplasty 03/25/20 19 07/07/2020 Primary osteoarthritis of right hip 03/13/2019 10/06/2019 Hyperkalemia 07/27/2016 11/27/2018 Polycythemia 07/27/2016 11/27/2018 Overview: recheck Anxiety 12/14/2015 01/06/2021 documented as of this encounter (statuses as of 07/06/2022) [facility] History of Past illness Narrative* Problem Noted Date Resolved Date Asthma 07/07/2020 07/07/2020 Hypomagnesemia 10/22/2019 10/23/2019 Last Assessment & Plan: Replete mag today Preop cardiovascular exam 09/28/20192018 Precordial pain, short lived , 3-5 minutes, nonexertional, no evidence of stress-induced ischemia on dobutamine echo in January 2019. 09/28/2019 07/07/2020 Last Assessment & Plan: Assessment: Cardiac clearance obtained from Dr. Roth 09/2019. Stress Echo-CONCLUSIONS: - Exam indication: CP - ECG uninterpretable OR unable to exercise - The dobutamine stress echo was negative for ischemia at 89 % of MPHR. - The left ventricle is normal in size. Left ventricular systolic function is mildly decreased. EF = 52 5% (2D 4-ch.) Normal left ventricular diastolic function. -There appears to be a redundant chord mid LV. - The patient has not had a prior CC echocardiographic exam for comparison. History of total right hip arthroplasty 03/25/20 19 07/07/2020 Primary osteoarthritis of right hip 03/13/2019 10/06/2019 Hyperkalemia 07/27/2016 11/27/2018 Polycythemia 07/27/2016 11/27/2018 Overview: lyubov Anxiety 12/14/2015 01/06/2021 documented as of this encounter (statuses as of 07/09/2022) [facility] History of Past illness Narrative* Problem Noted Date Resolved Date Asthma 07/07/2020 07/07/2020 Hypomagnesemia 10/22/2019 10/23/2019 Last Assessment & Plan: Replete mag today Preop cardiovascular exam 09/28/20192018 Precordial pain, short lived , 3-5 minutes, nonexertional, no evidence of stress-induced ischemia on dobutamine echo in January 2019. 09/28/2019 07/07/2020 Last Assessment & Plan: Assessment: Cardiac clearance obtained from Dr. Roth 09/2019. Stress Echo-CONCLUSIONS: - Exam indication: CP - ECG uninterpretable OR unable to exercise - The dobutamine stress echo was negative for ischemia at 89 % of MPHR. - The left ventricle is normal in size. Left ventricular systolic function is mildly decreased. EF = 52 5% (2D 4-ch.) Normal left ventricular diastolic function. -There appears to be a redundant chord mid LV. - The patient has not had a prior CC echocardiographic exam for comparison. History of total right hip arthroplasty 03/25/20 19 07/07/2020 Primary osteoarthritis of right hip 03/13/2019 10/06/2019 Hyperkalemia 07/27/2016 11/27/2018 Polycythemia 07/27/2016 11/27/2018 Overview: recheck Anxiety 12/14/2015 01/06/2021 documented as of this encounter (statuses as of 07/18/2022) [facility] History of Past illness Narrative* Problem Noted Date Resolved Date Asthma 07/07/2020 07/07/2020 Hypomagnesemia 10/22/2019 10/23/2019 Last Assessment & Plan: Replete mag today Preop cardiovascular exam 09/28/20192018 Precordial pain, short lived , 3-5 minutes, nonexertional, no evidence of stress-induced ischemia on dobutamine echo in January 2019. 09/28/2019 07/07/2020 Last Assessment & Plan: Assessment: Cardiac clearance obtained from Dr. Roth 09/2019. Stress Echo-CONCLUSIONS: - Exam indication: CP - ECG uninterpretable OR unable to exercise - The dobutamine stress echo was negative for ischemia at 89 % of MPHR. - The left ventricle is normal in size. Left ventricular systolic function is mildly decreased. EF = 52 5% (2D 4-ch.) Normal left ventricular diastolic function. -There appears to be a redundant chord mid LV. - The patient has not had a prior CC echocardiographic exam for comparison. History of total right hip arthroplasty 03/25/20 19 07/07/2020 Primary osteoarthritis of right hip 03/13/2019 10/06/2019 Hyperkalemia 07/27/2016 11/27/2018 Polycythemia 07/27/2016 11/27/2018 Overview: recheck Anxiety 12/14/2015 01/06/2021 documented as of this encounter (statuses as of 07/24/2022) [facility]-27-2020 History of Past illness Narrative* Problem Noted Date Resolved Date Asthma 07/07/2020 07/07/2020 Hypomagnesemia 10/22/2019 10/23/2019 Last Assessment & Plan: Replete mag today Preop cardiovascular exam 09/28/20192018 Precordial pain, short lived , 3-5 minutes, nonexertional, no evidence of stress-induced ischemia on dobutamine echo in January 2019. 09/28/2019 07/07/2020 Last Assessment & Plan: Assessment: Cardiac clearance obtained from Dr. Roth 09/2019. Stress Echo-CONCLUSIONS: - Exam indication: CP - ECG uninterpretable OR unable to exercise - The dobutamine stress echo was negative for ischemia at 89 % of MPHR. - The left ventricle is normal in size. Left ventricular systolic function is mildly decreased. EF = 52 5% (2D 4-ch.) Normal left ventricular diastolic function. -There appears to be a redundant chord mid LV. - The patient has not had a prior CC echocardiographic exam for comparison. History of total right hip arthroplasty 03/25/2007/07/2020 Primary osteoarthritis of right hip 03/13/2019 10/06/2019 Hyperkalemia 07/27/2016 11/27/2018 Polycythemia 07/27/2016 11/27/2018 Overview: recheck Anxiety 12/14/2015 01/06/2021 documented as of this encounter (statuses as of 07/31/2022) [facility] History of Past illness Narrative* Problem Noted Date Resolved Date Asthma 07/07/2020 07/07/2020 Hypomagnesemia 10/22/2019 10/23/2019 Last Assessment & Plan: Replete mag today Preop cardiovascular exam 09/28/20192018 Precordial pain, short lived , 3-5 minutes, nonexertional, no evidence of stress-induced ischemia on dobutamine echo in January 2019. 09/28/2019 07/07/2020 Last Assessment & Plan: Assessment: Cardiac clearance obtained from Dr. Roth 09/2019. Stress Echo-CONCLUSIONS: - Exam indication: CP - ECG uninterpretable OR unable to exercise - The dobutamine stress echo was negative for ischemia at 89 % of MPHR. - The left ventricle is normal in size. Left ventricular systolic function is mildly decreased. EF = 52 5% (2D 4-ch.) Normal left ventricular diastolic function. -There appears to be a redundant chord mid LV. - The patient has not had a prior CC echocardiographic exam for comparison. History of total right hip arthroplasty 03/25/2007/07/2020 Primary osteoarthritis of right hip 03/13/2019 10/06/2019 Hyperkalemia 07/27/2016 11/27/2018 Polycythemia 07/27/2016 11/27/2018 Overview: recheck Anxiety 12/14/2015 01/06/2021 documented as of this encounter (statuses as of 08/10/2022) [facility] History of Past illness Narrative* Problem Noted Date Resolved Date Asthma 07/07/2020 07/07/2020 Hypomagnesemia 10/22/2019 10/23/2019 Last Assessment & Plan: Replete mag today Preop cardiovascular exam 09/28/20192018 Precordial pain, short lived , 3-5 minutes, nonexertional, no evidence of stress-induced ischemia on dobutamine echo in January 2019. 09/28/2019 07/07/2020 Last Assessment & Plan: Assessment: Cardiac clearance obtained from Dr. Roth 09/2019. Stress Echo-CONCLUSIONS: - Exam indication: CP - ECG uninterpretable OR unable to exercise - The dobutamine stress echo was negative for ischemia at 89 % of MPHR. - The left ventricle is normal in size. Left ventricular systolic function is mildly decreased. EF = 52 5% (2D 4-ch.) Normal left ventricular diastolic function. -There appears to be a redundant chord mid LV. - The patient has not had a prior CC echocardiographic exam for comparison. History of total right hip arthroplasty 03/25/20 19 07/07/2020 Primary osteoarthritis of right hip 03/13/2019 10/06/2019 Hyperkalemia 07/27/2016 11/27/2018 Polycythemia 07/27/2016 11/27/2018 Overview: recheck Anxiety 12/14/2015 01/06/2021 documented as of this encounter (statuses as of 08/16/2022) [facility] History of Past illness Narrative* Problem Noted Date Resolved Date Asthma 07/07/2020 07/07/2020 Hypomagnesemia 10/22/2019 10/23/2019 Last Assessment & Plan: Replete mag today Preop cardiovascular exam 09/28/20192018 Precordial pain, short lived , 3-5 minutes, nonexertional, no evidence of stress-induced ischemia on dobutamine echo in January 2019. 09/28/2019 07/07/2020 Last Assessment & Plan: Assessment: Cardiac clearance obtained from Dr. Roth 09/2019. Stress Echo-CONCLUSIONS: - Exam indication: CP - ECG uninterpretable OR unable to exercise - The dobutamine stress echo was negative for ischemia at 89 % of MPHR. - The left ventricle is normal in size. Left ventricular systolic function is mildly decreased. EF = 52 5% (2D 4-ch.) Normal left ventricular diastolic function. -There appears to be a redundant chord mid LV. - The patient has not had a prior CC echocardiographic exam for comparison. History of total right hip arthroplasty 03/25/2007/07/2020 Primary osteoarthritis of right hip 03/13/2019 10/06/2019 Hyperkalemia 07/27/2016 11/27/2018 Polycythemia 07/27/2016 11/27/2018 Overview: recheck Anxiety 12/14/2015 01/06/2021 documented as of this encounter (statuses as of 08/31/2022) [facility] History of Past illness Narrative* Problem Noted Date Resolved Date Asthma 07/07/2020 07/07/2020 Hypomagnesemia 10/22/2019 10/23/2019 Last Assessment & Plan: Replete mag today Preop cardiovascular exam 09/28/20192018 Precordial pain, short lived , 3-5 minutes, nonexertional, no evidence of stress-induced ischemia on dobutamine echo in January 2019. 09/28/2019 07/07/2020 Last Assessment & Plan: Assessment: Cardiac clearance obtained from Dr. Roth 09/2019. Stress Echo-CONCLUSIONS: - Exam indication: CP - ECG uninterpretable OR unable to exercise - The dobutamine stress echo was negative for ischemia at 89 % of MPHR. - The left ventricle is normal in size. Left ventricular systolic function is mildly decreased. EF = 52 5% (2D 4-ch.) Normal left ventricular diastolic function. -There appears to be a redundant chord mid LV. - The patient has not had a prior CC echocardiographic exam for comparison. History of total right hip arthroplasty 03/25/2007/07/2020 Primary osteoarthritis of right hip 03/13/2019 10/06/2019 Hyperkalemia 07/27/2016 11/27/2018 Polycythemia 07/27/2016 11/27/2018 Overview: lyubov Anxiety 12/14/2015 01/06/2021 documented as of this encounter (statuses as of 09/05/2022) [facility] History of Past illness Narrative* Problem Noted Date Resolved Date Asthma 07/07/2020 07/07/2020 Hypomagnesemia 10/22/2019 10/23/2019 Last Assessment & Plan: Replete mag today Preop cardiovascular exam 09/28/20192018 Precordial pain, short lived , 3-5 minutes, nonexertional, no evidence of stress-induced ischemia on dobutamine echo in January 2019. 09/28/2019 07/07/2020 Last Assessment & Plan: Assessment: Cardiac clearance obtained from Dr. Roth 09/2019. Stress Echo-CONCLUSIONS: - Exam indication: CP - ECG uninterpretable OR unable to exercise - The dobutamine stress echo was negative for ischemia at 89 % of MPHR. - The left ventricle is normal in size. Left ventricular systolic function is mildly decreased. EF = 52 5% (2D 4-ch.) Normal left ventricular diastolic function. -There appears to be a redundant chord mid LV. - The patient has not had a prior CC echocardiographic exam for comparison. History of total right hip arthroplasty 03/25/20 19 07/07/2020 Primary osteoarthritis of right hip 03/13/2019 10/06/2019 Hyperkalemia 07/27/2016 11/27/2018 Polycythemia 07/27/2016 11/27/2018 Overview: deepakeck Anxiety 12/14/2015 01/06/2021 documented as of this encounter (statuses as of 09/06/2022) [facility] History of Past illness Narrative* Problem Noted Date Resolved Date Asthma 07/07/2020 07/07/2020 Hypomagnesemia 10/22/2019 10/23/2019 Last Assessment & Plan: Replete mag today Preop cardiovascular exam 09/28/20192018 Precordial pain, short lived , 3-5 minutes, nonexertional, no evidence of stress-induced ischemia on dobutamine echo in January 2019. 09/28/2019 07/07/2020 Last Assessment & Plan: Assessment: Cardiac clearance obtained from Dr. Roth 09/2019. Stress Echo-CONCLUSIONS: - Exam indication: CP - ECG uninterpretable OR unable to exercise - The dobutamine stress echo was negative for ischemia at 89 % of MPHR. - The left ventricle is normal in size. Left ventricular systolic function is mildly decreased. EF = 52 5% (2D 4-ch.) Normal left ventricular diastolic function. -There appears to be a redundant chord mid LV. - The patient has not had a prior CC echocardiographic exam for comparison. History of total right hip arthroplasty 03/25/20 19 07/07/2020 Primary osteoarthritis of right hip 03/13/2019 10/06/2019 Hyperkalemia 07/27/2016 11/27/2018 Polycythemia 07/27/2016 11/27/2018 Overview: recheck Anxiety 12/14/2015 01/06/2021 documented as of this encounter (statuses as of 09/24/2022) [facility] History of Past illness Narrative* Problem Noted Date Resolved Date Asthma 07/07/2020 07/07/2020 Hypomagnesemia 10/22/2019 10/23/2019 Last Assessment & Plan: Replete mag today Preop cardiovascular exam 09/28/20192018 Precordial pain, short lived , 3-5 minutes, nonexertional, no evidence of stress-induced ischemia on dobutamine echo in January 2019. 09/28/2019 07/07/2020 Last Assessment & Plan: Assessment: Cardiac clearance obtained from Dr. Roth 09/2019. Stress Echo-CONCLUSIONS: - Exam indication: CP - ECG uninterpretable OR unable to exercise - The dobutamine stress echo was negative for ischemia at 89 % of MPHR. - The left ventricle is normal in size. Left ventricular systolic function is mildly decreased. EF = 52 5% (2D 4-ch.) Normal left ventricular diastolic function. -There appears to be a redundant chord mid LV. - The patient has not had a prior CC echocardiographic exam for comparison. History of total right hip arthroplasty 03/25/2007/07/2020 Primary osteoarthritis of right hip 03/13/2019 10/06/2019 Hyperkalemia 07/27/2016 11/27/2018 Polycythemia 07/27/2016 11/27/2018 Overview: recheck Anxiety 12/14/2015 01/06/2021 documented as of this encounter (statuses as of 09/30/2022) [facility] History of Past illness Narrative* Problem Noted Date Resolved Date Asthma 07/07/2020 07/07/2020 Hypomagnesemia 10/22/2019 10/23/2019 Last Assessment & Plan: Replete mag today Preop cardiovascular exam 09/28/20192018 Precordial pain, short lived , 3-5 minutes, nonexertional, no evidence of stress-induced ischemia on dobutamine echo in January 2019. 09/28/2019 07/07/2020 Last Assessment & Plan: Assessment: Cardiac clearance obtained from Dr. Roth 09/2019. Stress Echo-CONCLUSIONS: - Exam indication: CP - ECG uninterpretable OR unable to exercise - The dobutamine stress echo was negative for ischemia at 89 % of MPHR. - The left ventricle is normal in size. Left ventricular systolic function is mildly decreased. EF = 52 5% (2D 4-ch.) Normal left ventricular diastolic function. -There appears to be a redundant chord mid LV. - The patient has not had a prior CC echocardiographic exam for comparison. History of total right hip arthroplasty 03/25/2007/07/2020 Primary osteoarthritis of right hip 03/13/2019 10/06/2019 Hyperkalemia 07/27/2016 11/27/2018 Polycythemia 07/27/2016 11/27/2018 Overview: recheck Anxiety 12/14/2015 01/06/2021 documented as of this encounter (statuses as of 10/02/2022) [facility] History of Past illness Narrative* Problem Noted Date Resolved Date Asthma 07/07/2020 07/07/2020 Hypomagnesemia 10/22/2019 10/23/2019 Last Assessment & Plan: Replete mag today Preop cardiovascular exam 09/28/20192018 Precordial pain, short lived , 3-5 minutes, nonexertional, no evidence of stress-induced ischemia on dobutamine echo in January 2019. 09/28/2019 07/07/2020 Last Assessment & Plan: Assessment: Cardiac clearance obtained from Dr. Roth 09/2019. Stress Echo-CONCLUSIONS: - Exam indication: CP - ECG uninterpretable OR unable to exercise - The dobutamine stress echo was negative for ischemia at 89 % of MPHR. - The left ventricle is normal in size. Left ventricular systolic function is mildly decreased. EF = 52 5% (2D 4-ch.) Normal left ventricular diastolic function. -There appears to be a redundant chord mid LV. - The patient has not had a prior CC echocardiographic exam for comparison. History of total right hip arthroplasty 03/25/20 19 07/07/2020 Primary osteoarthritis of right hip 03/13/2019 10/06/2019 Hyperkalemia 07/27/2016 11/27/2018 Polycythemia 07/27/2016 11/27/2018 Overview: recheck Anxiety 12/14/2015 01/06/2021 documented as of this encounter (statuses as of 11/26/2022) [facility] History of Past illness Narrative* Problem Noted Date Resolved Date Asthma 07/07/2020 07/07/2020 Hypomagnesemia 10/22/2019 10/23/2019 Last Assessment & Plan: Replete mag today Preop cardiovascular exam 09/28/20192018 Precordial pain, short lived , 3-5 minutes, nonexertional, no evidence of stress-induced ischemia on dobutamine echo in January 2019. 09/28/2019 07/07/2020 Last Assessment & Plan: Assessment: Cardiac clearance obtained from Dr. Roth 09/2019. Stress Echo-CONCLUSIONS: - Exam indication: CP - ECG uninterpretable OR unable to exercise - The dobutamine stress echo was negative for ischemia at 89 % of MPHR. - The left ventricle is normal in size. Left ventricular systolic function is mildly decreased. EF = 52 5% (2D 4-ch.) Normal left ventricular diastolic function. -There appears to be a redundant chord mid LV. - The patient has not had a prior CC echocardiographic exam for comparison. History of total right hip arthroplasty 03/25/2007/07/2020 Primary osteoarthritis of right hip 03/13/2019 10/06/2019 Hyperkalemia 07/27/2016 11/27/2018 Polycythemia 07/27/2016 11/27/2018 Overview: recheck Anxiety 12/14/2015 01/06/2021 documented as of this encounter (statuses as of 12/15/2022) [facility] History of Past illness Narrative* Problem Noted Date Resolved Date Asthma 07/07/2020 07/07/2020 Hypomagnesemia 10/22/2019 10/23/2019 Last Assessment & Plan: Replete mag today Preop cardiovascular exam 09/28/20192018 Precordial pain, short lived , 3-5 minutes, nonexertional, no evidence of stress-induced ischemia on dobutamine echo in January 2019. 09/28/2019 07/07/2020 Last Assessment & Plan: Assessment: Cardiac clearance obtained from Dr. Roth 09/2019. Stress Echo-CONCLUSIONS: - Exam indication: CP - ECG uninterpretable OR unable to exercise - The dobutamine stress echo was negative for ischemia at 89 % of MPHR. - The left ventricle is normal in size. Left ventricular systolic function is mildly decreased. EF = 52 5% (2D 4-ch.) Normal left ventricular diastolic function. -There appears to be a redundant chord mid LV. - The patient has not had a prior CC echocardiographic exam for comparison. History of total right hip arthroplasty 03/25/2007/07/2020 Primary osteoarthritis of right hip 03/13/2019 10/06/2019 Hyperkalemia 07/27/2016 11/27/2018 Polycythemia 07/27/2016 11/27/2018 Overview: lyubov Anxiety 12/14/2015 01/06/2021 documented as of this encounter (statuses as of 01/01/2023) [facility] History of Past illness Narrative* Problem Noted Date Resolved Date Asthma 07/07/2020 07/07/2020 Hypomagnesemia 10/22/2019 10/23/2019 Last Assessment & Plan: Replete mag today Preop cardiovascular exam 09/28/20192018 Precordial pain, short lived , 3-5 minutes, nonexertional, no evidence of stress-induced ischemia on dobutamine echo in January 2019. 09/28/2019 07/07/2020 Last Assessment & Plan: Assessment: Cardiac clearance obtained from Dr. Roth 09/2019. Stress Echo-CONCLUSIONS: - Exam indication: CP - ECG uninterpretable OR unable to exercise - The dobutamine stress echo was negative for ischemia at 89 % of MPHR. - The left ventricle is normal in size. Left ventricular systolic function is mildly decreased. EF = 52 5% (2D 4-ch.) Normal left ventricular diastolic function. -There appears to be a redundant chord mid LV. - The patient has not had a prior CC echocardiographic exam for comparison. History of total right hip arthroplasty 03/25/20 19 07/07/2020 Primary osteoarthritis of right hip 03/13/2019 10/06/2019 Hyperkalemia 07/27/2016 11/27/2018 Polycythemia 07/27/2016 11/27/2018 Overview: deepakeck Anxiety 12/14/2015 01/06/2021 documented as of this encounter (statuses as of 01/01/2023) [facility] History of Past illness Narrative* Problem Noted Date Resolved Date Asthma 07/07/2020 07/07/2020 Hypomagnesemia 10/22/2019 10/23/2019 Last Assessment & Plan: Replete mag today Preop cardiovascular exam 09/28/20192018 Precordial pain, short lived , 3-5 minutes, nonexertional, no evidence of stress-induced ischemia on dobutamine echo in January 2019. 09/28/2019 07/07/2020 Last Assessment & Plan: Assessment: Cardiac clearance obtained from Dr. Roth 09/2019. Stress Echo-CONCLUSIONS: - Exam indication: CP - ECG uninterpretable OR unable to exercise - The dobutamine stress echo was negative for ischemia at 89 % of MPHR. - The left ventricle is normal in size. Left ventricular systolic function is mildly decreased. EF = 52 5% (2D 4-ch.) Normal left ventricular diastolic function. -There appears to be a redundant chord mid LV. - The patient has not had a prior CC echocardiographic exam for comparison. History of total right hip arthroplasty 03/25/2007/07/2020 Primary osteoarthritis of right hip 03/13/2019 10/06/2019 Hyperkalemia 07/27/2016 11/27/2018 Polycythemia 07/27/2016 11/27/2018 Overview: recheck Anxiety 12/14/2015 01/06/2021 documented as of this encounter (statuses as of 02/27/2023) [facility] History of Past illness Narrative* Problem Noted Date Resolved Date Asthma 07/07/2020 07/07/2020 Hypomagnesemia 10/22/2019 10/23/2019 Last Assessment & Plan: Replete mag today Preop cardiovascular exam 09/28/20192018 Precordial pain, short lived , 3-5 minutes, nonexertional, no evidence of stress-induced ischemia on dobutamine echo in January 2019. 09/28/2019 07/07/2020 Last Assessment & Plan: Assessment: Cardiac clearance obtained from Dr. Roth 09/2019. Stress Echo-CONCLUSIONS: - Exam indication: CP - ECG uninterpretable OR unable to exercise - The dobutamine stress echo was negative for ischemia at 89 % of MPHR. - The left ventricle is normal in size. Left ventricular systolic function is mildly decreased. EF = 52 5% (2D 4-ch.) Normal left ventricular diastolic function. -There appears to be a redundant chord mid LV. - The patient has not had a prior CC echocardiographic exam for comparison. History of total right hip arthroplasty 03/25/20 19 07/07/2020 Primary osteoarthritis of right hip 03/13/2019 10/06/2019 Hyperkalemia 07/27/2016 11/27/2018 Polycythemia 07/27/2016 11/27/2018 Overview: recheck Anxiety 12/14/2015 01/06/2021 documented as of this encounter (statuses as of 04/16/2023) [facility] History of Past illness Narrative* Problem Noted Date Resolved Date Asthma 07/07/2020 07/07/2020 Hypomagnesemia 10/22/2019 10/23/2019 Last Assessment & Plan: Replete mag today Preop cardiovascular exam 09/28/20192018 Precordial pain, short lived , 3-5 minutes, nonexertional, no evidence of stress-induced ischemia on dobutamine echo in January 2019. 09/28/2019 07/07/2020 Last Assessment & Plan: Assessment: Cardiac clearance obtained from Dr. Roth 09/2019. Stress Echo-CONCLUSIONS: - Exam indication: CP - ECG uninterpretable OR unable to exercise - The dobutamine stress echo was negative for ischemia at 89 % of MPHR. - The left ventricle is normal in size. Left ventricular systolic function is mildly decreased. EF = 52 5% (2D 4-ch.) Normal left ventricular diastolic function. -There appears to be a redundant chord mid LV. - The patient has not had a prior CC echocardiographic exam for comparison. History of total right hip arthroplasty 03/25/20 19 07/07/2020 Primary osteoarthritis of right hip 03/13/2019 10/06/2019 Hyperkalemia 07/27/2016 11/27/2018 Polycythemia 07/27/2016 11/27/2018 Overview: recheck Anxiety 12/14/2015 01/06/2021 documented as of this encounter (statuses as of 05/09/2023) [facility] History of Past illness Narrative* Problem Noted Date Resolved Date Asthma 07/07/2020 07/07/2020 Hypomagnesemia 10/22/2019 10/23/2019 Last Assessment & Plan: Replete mag today Preop cardiovascular exam 09/28/20192018 Precordial pain, short lived , 3-5 minutes, nonexertional, no evidence of stress-induced ischemia on dobutamine echo in January 2019. 09/28/2019 07/07/2020 Last Assessment & Plan: Assessment: Cardiac clearance obtained from Dr. Roth 09/2019. Stress Echo-CONCLUSIONS: - Exam indication: CP - ECG uninterpretable OR unable to exercise - The dobutamine stress echo was negative for ischemia at 89 % of MPHR. - The left ventricle is normal in size. Left ventricular systolic function is mildly decreased. EF = 52 5% (2D 4-ch.) Normal left ventricular diastolic function. -There appears to be a redundant chord mid LV. - The patient has not had a prior CC echocardiographic exam for comparison. History of total right hip arthroplasty 03/25/20 19 07/07/2020 Primary osteoarthritis of right hip 03/13/2019 10/06/2019 Hyperkalemia 07/27/2016 11/27/2018 Polycythemia 07/27/2016 11/27/2018 Overview: recheck Anxiety 12/14/2015 01/06/2021 documented as of this encounter (statuses as of 05/09/2023) [facility] History of Past illness Narrative* Problem Noted Date Resolved Date Asthma 07/07/2020 07/07/2020 Hypomagnesemia 10/22/2019 10/23/2019 Last Assessment & Plan: Replete mag today Preop cardiovascular exam 09/28/20192018 Precordial pain, short lived , 3-5 minutes, nonexertional, no evidence of stress-induced ischemia on dobutamine echo in January 2019. 09/28/2019 07/07/2020 Last Assessment & Plan: Assessment: Cardiac clearance obtained from Dr. Roth 09/2019. Stress Echo-CONCLUSIONS: - Exam indication: CP - ECG uninterpretable OR unable to exercise - The dobutamine stress echo was negative for ischemia at 89 % of MPHR. - The left ventricle is normal in size. Left ventricular systolic function is mildly decreased. EF = 52 5% (2D 4-ch.) Normal left ventricular diastolic function. -There appears to be a redundant chord mid LV. - The patient has not had a prior CC echocardiographic exam for comparison. History of total right hip arthroplasty 03/25/20 19 07/07/2020 Primary osteoarthritis of right hip 03/13/2019 10/06/2019 Hyperkalemia 07/27/2016 11/27/2018 Polycythemia 07/27/2016 11/27/2018 Overview: recheck Anxiety 12/14/2015 01/06/2021 documented as of this encounter (statuses as of 05/14/2023) [facility] History of Past illness Narrative* Problem Noted Date Diagnosed Date Resolved Date Asthma 07/07/2020 07/07/2020 Hypomagnesemia 10/22/2019 10/23/2019 Last Assessment & Plan: Replete mag today Preop cardiovascular exam 09/28/2019 Precordial pain, short lived , 3-5 minutes, nonexertional, no evidence of stress-induced ischemia on dobutamine echo in January 2019. 09/28/2019 07/07/2020 Last Assessment & Plan: Assessment: Cardiac clearance obtained from Dr. Roth 09/2019. Stress Echo-CONCLUSIONS: - Exam indication: CP - ECG uninterpretable OR unable to exercise - The dobutamine stress echo was negative for ischemia at 89 % of MPHR. - The left ventricle is normal in size. Left ventricular systolic function is mildly decreased. EF = 52 5% (2D 4-ch.) Normal left ventricular diastolic function. -There appears to be a redundant chord mid LV. - The patient has not had a prior CC echocardiographic exam for comparison. History of total right hip arthroplasty 03/25/2019 07/07/2020 Primary osteoarthritis of right hip 03/13/2019 10/06/2019 Hyperkalemia 07/27/2016 11/27/2018 Polycythemia 07/27/2016 11/27/2018 Overview: lyubov Anxiety 12/14/2015 01/06/2021 documented as of this encounter (statuses as of 05/28/2023) [facility] History of Past illness Narrative* Problem Noted Date Diagnosed Date Resolved Date Asthma 07/07/2020 07/07/2020 Hypomagnesemia 10/22/2019 10/23/2019 Last Assessment & Plan: Replete mag today Preop cardiovascular exam 09/28/2019 Precordial pain, short lived , 3-5 minutes, nonexertional, no evidence of stress-induced ischemia on dobutamine echo in January 2019. 09/28/2019 07/07/2020 Last Assessment & Plan: Assessment: Cardiac clearance obtained from Dr. Roth 09/2019. Stress Echo-CONCLUSIONS: - Exam indication: CP - ECG uninterpretable OR unable to exercise - The dobutamine stress echo was negative for ischemia at 89 % of MPHR. - The left ventricle is normal in size. Left ventricular systolic function is mildly decreased. EF = 52 5% (2D 4-ch.) Normal left ventricular diastolic function. -There appears to be a redundant chord mid LV. - The patient has not had a prior CC echocardiographic exam for comparison. History of total right hip arthroplasty 03/25/2019 07/07/2020 Primary osteoarthritis of right hip 03/13/2019 10/06/2019 Hyperkalemia 07/27/2016 11/27/2018 Polycythemia 07/27/2016 11/27/2018 Overview: lyubov Anxiety 12/14/2015 01/06/2021 documented as of this encounter (statuses as of 06/07/2023) [facility] History of Past illness Narrative* Problem Noted Date Diagnosed Date Resolved Date Asthma 07/07/2020 07/07/2020 Hypomagnesemia 10/22/2019 10/23/2019 Last Assessment & Plan: Replete mag today Preop cardiovascular exam 09/28/2019 Precordial pain, short lived , 3-5 minutes, nonexertional, no evidence of stress-induced ischemia on dobutamine echo in January 2019. 09/28/2019 07/07/2020 Last Assessment & Plan: Assessment: Cardiac clearance obtained from Dr. Roth 09/2019. Stress Echo-CONCLUSIONS: - Exam indication: CP - ECG uninterpretable OR unable to exercise - The dobutamine stress echo was negative for ischemia at 89 % of MPHR. - The left ventricle is normal in size. Left ventricular systolic function is mildly decreased. EF = 52 5% (2D 4-ch.) Normal left ventricular diastolic function. -There appears to be a redundant chord mid LV. - The patient has not had a prior CC echocardiographic exam for comparison. History of total right hip arthroplasty 03/25/2019 07/07/2020 Primary osteoarthritis of right hip 03/13/2019 10/06/2019 Hyperkalemia 07/27/2016 11/27/2018 Polycythemia 07/27/2016 11/27/2018 Overview: recheck Anxiety 12/14/2015 01/06/2021 documented as of this encounter (statuses as of 06/11/2023) [facility] History of Past illness Narrative* Problem Noted Date Diagnosed Date Resolved Date Asthma 07/07/2020 07/07/2020 Hypomagnesemia 10/22/2019 10/23/2019 Last Assessment & Plan: Replete mag today Preop cardiovascular exam 09/28/2019 Precordial pain, short lived , 3-5 minutes, nonexertional, no evidence of stress-induced ischemia on dobutamine echo in January 2019. 09/28/2019 07/07/2020 Last Assessment & Plan: Assessment: Cardiac clearance obtained from Dr. Roth 09/2019. Stress Echo-CONCLUSIONS: - Exam indication: CP - ECG uninterpretable OR unable to exercise - The dobutamine stress echo was negative for ischemia at 89 % of MPHR. - The left ventricle is normal in size. Left ventricular systolic function is mildly decreased. EF = 52 5% (2D 4-ch.) Normal left ventricular diastolic function. -There appears to be a redundant chord mid LV. - The patient has not had a prior CC echocardiographic exam for comparison. History of total right hip arthroplasty 03/25/2019 07/07/2020 Primary osteoarthritis of right hip 03/13/2019 10/06/2019 Hyperkalemia 07/27/2016 11/27/2018 Polycythemia 07/27/2016 11/27/2018 Overview: lyubov Anxiety 12/14/2015 01/06/2021 documented as of this encounter (statuses as of 06/13/2023) [facility] History of Past illness Narrative* Problem Noted Date Diagnosed Date Resolved Date Asthma 07/07/2020 07/07/2020 Hypomagnesemia 10/22/2019 10/23/2019 Last Assessment & Plan: Replete mag today Preop cardiovascular exam 09/28/2019 Precordial pain, short lived , 3-5 minutes, nonexertional, no evidence of stress-induced ischemia on dobutamine echo in January 2019. 09/28/2019 07/07/2020 Last Assessment & Plan: Assessment: Cardiac clearance obtained from Dr. Roth 09/2019. Stress Echo-CONCLUSIONS: - Exam indication: CP - ECG uninterpretable OR unable to exercise - The dobutamine stress echo was negative for ischemia at 89 % of MPHR. - The left ventricle is normal in size. Left ventricular systolic function is mildly decreased. EF = 52 5% (2D 4-ch.) Normal left ventricular diastolic function. -There appears to be a redundant chord mid LV. - The patient has not had a prior CC echocardiographic exam for comparison. History of total right hip arthroplasty 03/25/2019 07/07/2020 Primary osteoarthritis of right hip 03/13/2019 10/06/2019 Hyperkalemia 07/27/2016 11/27/2018 Polycythemia 07/27/2016 11/27/2018 Overview: [place] Anxiety 12/14/2015 01/06/2021 documented as of this encounter (statuses as of 06/14/2023) [facility] History of Past illness Narrative* Problem Noted Date Diagnosed Date Resolved Date Asthma 07/07/2020 07/07/2020 Hypomagnesemia 10/22/2019 10/23/2019 Last Assessment & Plan: Replete mag today Preop cardiovascular exam 09/28/2019 Precordial pain, short lived , 3-5 minutes, nonexertional, no evidence of stress-induced ischemia on dobutamine echo in January 2019. 09/28/2019 07/07/2020 Last Assessment & Plan: Assessment: Cardiac clearance obtained from Dr. Roth 09/2019. Stress Echo-CONCLUSIONS: - Exam indication: CP - ECG uninterpretable OR unable to exercise - The dobutamine stress echo was negative for ischemia at 89 % of MPHR. - The left ventricle is normal in size. Left ventricular systolic function is mildly decreased. EF = 52 5% (2D 4-ch.) Normal left ventricular diastolic function. -There appears to be a redundant chord mid LV. - The patient has not had a prior CC echocardiographic exam for comparison. History of total right hip arthroplasty 03/25/2019 07/07/2020 Primary osteoarthritis of right hip 03/13/2019 10/06/2019 Hyperkalemia 07/27/2016 11/27/2018 Polycythemia 07/27/2016 11/27/2018 Overview: recheck Anxiety 12/14/2015 01/06/2021 documented as of this encounter (statuses as of 09/26/2023) [facility] History of Past illness Narrative* Problem Noted Date Diagnosed Date Resolved Date Asthma 07/07/2020 07/07/2020 Hypomagnesemia 10/22/2019 10/23/2019 Last Assessment & Plan: Replete mag today Preop cardiovascular exam 09/28/2019 Precordial pain, short lived , 3-5 minutes, nonexertional, no evidence of stress-induced ischemia on dobutamine echo in January 2019. 09/28/2019 07/07/2020 Last Assessment & Plan: Assessment: Cardiac clearance obtained from Dr. Roth 09/2019. Stress Echo-CONCLUSIONS: - Exam indication: CP - ECG uninterpretable OR unable to exercise - The dobutamine stress echo was negative for ischemia at 89 % of MPHR. - The left ventricle is normal in size. Left ventricular systolic function is mildly decreased. EF = 52 5% (2D 4-ch.) Normal left ventricular diastolic function. -There appears to be a redundant chord mid LV. - The patient has not had a prior CC echocardiographic exam for comparison. History of total right hip arthroplasty 03/25/2019 07/07/2020 Primary osteoarthritis of right hip 03/13/2019 10/06/2019 Hyperkalemia 07/27/2016 11/27/2018 Polycythemia 07/27/2016 11/27/2018 Overview: recheck Anxiety 12/14/2015 01/06/2021 documented as of this encounter (statuses as of 10/18/2023) [facility] History of Past illness Narrative* Problem Noted Date Diagnosed Date Resolved Date Asthma 07/07/2020 07/07/2020 Hypomagnesemia 10/22/2019 10/23/2019 Last Assessment & Plan: Replete mag today Preop cardiovascular exam 09/28/2019 Precordial pain, short lived , 3-5 minutes, nonexertional, no evidence of stress-induced ischemia on dobutamine echo in January 2019. 09/28/2019 07/07/2020 Last Assessment & Plan: Assessment: Cardiac clearance obtained from Dr. Roth 09/2019. Stress Echo-CONCLUSIONS: - Exam indication: CP - ECG uninterpretable OR unable to exercise - The dobutamine stress echo was negative for ischemia at 89 % of MPHR. - The left ventricle is normal in size. Left ventricular systolic function is mildly decreased. EF = 52 5% (2D 4-ch.) Normal left ventricular diastolic function. -There appears to be a redundant chord mid LV. - The patient has not had a prior CC echocardiographic exam for comparison. History of total right hip arthroplasty 03/25/2019 07/07/2020 Primary osteoarthritis of right hip 03/13/2019 10/06/2019 Hyperkalemia 07/27/2016 11/27/2018 Polycythemia 07/27/2016 11/27/2018 Overview: lyubov Anxiety 12/14/2015 01/06/2021 documented as of this encounter (statuses as of 12/24/2023) [facility] History of Past illness Narrative* Problem Noted Date Diagnosed Date Resolved Date Asthma 07/07/2020 07/07/2020 Hypomagnesemia 10/22/2019 10/23/2019 Last Assessment & Plan: Replete mag today Preop cardiovascular exam 09/28/2019 Precordial pain, short lived , 3-5 minutes, nonexertional, no evidence of stress-induced ischemia on dobutamine echo in January 2019. 09/28/2019 07/07/2020 Last Assessment & Plan: Assessment: Cardiac clearance obtained from Dr. Roth 09/2019. Stress Echo-CONCLUSIONS: - Exam indication: CP - ECG uninterpretable OR unable to exercise - The dobutamine stress echo was negative for ischemia at 89 % of MPHR. - The left ventricle is normal in size. Left ventricular systolic function is mildly decreased. EF = 52 5% (2D 4-ch.) Normal left ventricular diastolic function. -There appears to be a redundant chord mid LV. - The patient has not had a prior CC echocardiographic exam for comparison. History of total right hip arthroplasty 03/25/2019 07/07/2020 Primary osteoarthritis of right hip 03/13/2019 10/06/2019 Hyperkalemia 07/27/2016 11/27/2018 Polycythemia 07/27/2016 11/27/2018 Overview: lyubov Anxiety 12/14/2015 01/06/2021 documented as of this encounter (statuses as of 01/25/2024) [facility] No data available for this section [facility] Evaluation + Plan note Future Appointments Appointment Date:01/21/2025 02:00:00 PM Scheduled Provider:EMMA QUEEN DO Location:[facility] Appointment Type:PC OV [facility] Evaluation + Plan note Future Appointments Appointment Date:12/14/2024 08:00:00 AM Scheduled Provider: Location:[facility] Appointment Type:CV Procedure - Heart Lab/Hybrid OR Appointment Date:12/18/2024 02:00:00 PM Scheduled Provider: Location:[facility] Appointment Type:Echo - Echocardiogram Adult Appointment Date:01/18/2025 10:00:00 AM Scheduled Provider:CHRISTIN GONZALEZ Location:[facility] Appointment Type:CV OV Appointment Date:01/21/2025 02:00:00 PM Scheduled Provider:EMMA QUEEN DO Location:[facility] Appointment Type:PC OV [facility] Evaluation + Plan note Future Appointments Appointment Date:12/18/2024 02:00:00 PM Scheduled Provider: Location:[facility] Appointment Type:Echo - Echocardiogram Adult Appointment Date:01/18/2025 10:00:00 AM Scheduled Provider:CHRISTIN GONZALEZ Location:[facility] Appointment Type:CV OV Appointment Date:01/21/2025 02:00:00 PM Scheduled Provider:EMMA QUEEN DO Location:[facility] Appointment Type:PC OV Diagnostic Tests Pending * Complete Blood Count 12/14/24 [facility] Evaluation + Plan note Future Appointments Appointment Date:01/18/2025 10:00:00 AM Scheduled Provider:CHRISTIN GONZALEZ Location:[facility] Appointment Type:CV OV Appointment Date:01/21/2025 02:00:00 PM Scheduled Provider:EMMA QUEEN DO Location:[facility] Appointment Type:PC OV [facility] Evaluation + Plan note Future Appointments Appointment Date:07/30/2025 10:00:00 AM Scheduled Provider:EMMA QUEEN DO Location:[facility] Appointment Type:PC OV Diagnostic Tests Pending * Blood Culture (bacterial) 06/12/25 * Blood Culture (bacterial) 06/12/25 Future Scheduled Tests Laboratory* Basic Metabolic Panel 01/11/25 * N-Terminal proBNP 01/11/25 Radiology* MRI Cardiac Morphology & Func W+W/O Cont 02/23/25 * CT Low Dose Lung Cancer Screening (LDCT) 03/10/25 [facility] Evaluation note* Diagnosis Recurrent major depression in partial remission (HCC) Major depressive disorder, recurrent episode, in partial or unspecified remission [facility] Diagnosis Dyspnea on exertion- Primary Other dyspnea and respiratory abnormality Smoker Tobacco use disorder Encounter for screening for malignant neoplasm of lung [facility] Diagnosis Wheezing [facility] Diagnosis DIAZ (dyspnea on exertion)- Primary Other dyspnea and respiratory abnormality Essential hypertension Unspecified essential hypertension Coronary artery disease involving [place] coronary artery of [place] heart without angina pectoris Mixed hyperlipidemia Smoker Tobacco use disorder Stenosis of carotid artery, unspecified laterality [facility] Diagnosis Recurrent major depression in partial remission (HCC) Major depressive disorder, recurrent episode, in partial or unspecified remission [facility] Diagnosis Chronic bronchitis, unspecified chronic bronchitis type (HCC)- Primary Recurrent major depression in partial remission (HCC) Major depressive disorder, recurrent episode, in partial or unspecified remission Gastroesophageal reflux disease, unspecified whether esophagitis present Need for vaccination Need for prophylactic vaccination and inoculation against unspecified single disease Bipolar affective disorder, current episode mixed, current episode severity unspecified (HCC) PAD (peripheral artery disease) (HCC) Peripheral vascular disease, unspecified [facility] Diagnosis DIAZ (dyspnea on exertion) Other dyspnea and respiratory abnormality [facility]* Diagnosis Tobacco use disorder- Primary [facility] Diagnosis Smoker- Primary Tobacco use disorder Encounter for screening for malignant neoplasm of lung [facility] Diagnosis Chronic bronchitis, unspecified chronic bronchitis type (HCC)- Primary [facility]* Diagnosis Dyspnea on exertion Other dyspnea and respiratory abnormality [facility]* Diagnosis Asthma-COPD overlap syndrome (HCC)- Primary Wheezing Smoking Tobacco use disorder [facility] Diagnosis Recurrent major depression in partial remission (HCC) Major depressive disorder, recurrent episode, in partial or unspecified remission [facility]* Diagnosis SOB (shortness of breath)- Primary Shortness of breath [facility] Diagnosis SOB (shortness of breath) Shortness of breath documented in this encounter [facility] note* Diagnosis Recurrent major depression in partial remission (HCC) Major depressive disorder, recurrent episode, in partial or unspecified remission documented in this encounter [facility] note* Diagnosis Lung nodules- Primary Other nonspecific abnormal finding of lung field Current smoker Tobacco use disorder documented in this encounter [facility] note* Diagnosis Situational anxiety- Primary Other anxiety states Allergic conjunctivitis of both eyes Other chronic allergic conjunctivitis Recurrent major depression in partial remission (HCC) Major depressive disorder, recurrent episode, in partial or unspecified remission Essential hypertension Unspecified essential hypertension Coronary artery disease involving [place] coronary artery of [place] heart without angina pectoris Chronic bronchitis, unspecified chronic bronchitis type ([facility]) Encounter for immunization Need for other specified prophylactic vaccination against single bacterial disease Mixed hyperlipidemia Lung nodule Solitary pulmonary nodule Screening for osteoporosis Special screening for osteoporosis Asymptomatic menopause documented in this encounter [facility] note* Diagnosis Thrush (oral)- Primary Prediabetes Other abnormal glucose Essential hypertension Unspecified essential hypertension documented in this encounter [facility] note* Diagnosis Peripheral arterial disease (HCC)- Primary Peripheral vascular disease, unspecified [facility]* Diagnosis PAD (peripheral artery disease) ([facility]) Peripheral vascular disease, unspecified documented in this encounter [facility] note* Diagnosis Hemoptysis- Primary Hemoptysis, unspecified Stage 3 severe COPD by GOLD classification ([facility]) Cigarette smoker Tobacco use disorder documented in this encounter [facility] note* Diagnosis Alcohol withdrawal syndrome without complication (HCC)- Primary documented in this encounter [facility] note* Diagnosis Onset Date Resolution Status Alcohol intoxication acute Chest pain acute Desire for detoxification ac [place] COPD exacerbation chronic [facility] Work Phone: Evaluation note* Diagnosis Onset Date Resolution Status Alcohol intoxication acute Chest pain acute Desire for detoxification ac [place] Peripheral arterial disease acute Pneumococcal pneumonia acute Rash acute COPD exacerbation [facility] Work Phone: Evaluation note* Diagnosis Dehydration- Primary documented in this encounter [facility] Work Phone: Evaluation note* Diagnosis Chronic midline low back pain with sciatica, sciatica laterality unspecified- Primary Lesion of left ear Essential hypertension Unspecified essential hypertension Mixed hyperlipidemia Chronic bronchitis, unspecified chronic bronchitis type (HCC) Recurrent major depression in partial remission (HCC) Major depressive disorder, recurrent episode, in partial or unspecified remission Coronary artery disease involving [place] coronary artery of [place] heart without angina pectoris documented in this encounter [facility] note* Diagnosis Stage 3 severe COPD by GOLD classification ([facility])- Primary Cigarette smoker Tobacco use disorder Lung nodules Other nonspecific abnormal finding of lung field documented in this encounter [facility] note* Diagnosis Radiculopathy, lumbar region- Primary Thoracic or lumbosacral neuritis or radiculitis, unspecified Chronic midline low back pain with sciatica, sciatica laterality unspecified [facility]* Diagnosis Encounter for screening for lung cancer- Primary Tobacco use current [facility]* Diagnosis Essential hypertension Unspecified essential hypertension Recurrent major depression in partial remission (HCC) Major depressive disorder, recurrent episode, in partial or unspecified remission [facility]* Diagnosis Coronary artery disease involving [place] coronary artery of [place] heart without angina pectoris- Primary Wheezing Essential hypertension Unspecified essential hypertension Gastroesophageal reflux disease, unspecified whether esophagitis present Recurrent major depression in partial remission (HCC) Major depressive disorder, recurrent episode, in partial or unspecified remission [facility]* Diagnosis Wheezing documented in this encounter [facility] note* Diagnosis Wheezing Essential hypertension Unspecified essential hypertension Gastroesophageal reflux disease, unspecified whether esophagitis present Recurrent major depression in partial remission (HCC) Major depressive disorder, recurrent episode, in partial or unspecified remission documented in this encounter [facility] note* Diagnosis Wheezing documented in this encounter [facility] note* Diagnosis Pre-operative examination- Primary Preoperative examination, unspecified Primary osteoarthritis of right hip Primary localized osteoarthrosis, pelvic region and thigh Essential hypertension Unspecified essential hypertension Chronic bronchitis, unspecified chronic bronchitis type ([facility]) Smoker Tobacco use disorder Recurrent major depression in partial remission (HCC) Major depressive disorder, recurrent episode, in partial or unspecified remission Bipolar affective disorder, current episode mixed, current episode severity unspecified ([facility]) Gastroesophageal reflux disease, esophagitis presence not specified PAD (peripheral artery disease) (HCC)- Primary Peripheral vascular disease, unspecified PAD (peripheral artery disease) (HCC) Peripheral vascular disease, unspecified Essential hypertension Unspecified essential hypertension Smoker Tobacco use disorder Chronic bronchitis, unspecified chronic bronchitis type (HCC) Smoker Tobacco use disorder Hypomagnesemia Disorders of magnesium metabolism Preoperative examination- Primary Preoperative examination, unspecified PAD (peripheral artery disease) (HCC) Peripheral vascular disease, unspecified Essential hypertension Unspecified essential hypertension Precordial pain, short lived, 3-5 minutes, nonexertional, no evidence of stress-induced ischemia on dobutamine echo in January 2019. Precordial pain Chronic bronchitis, unspecified chronic bronchitis type (HCC) Smoker Tobacco use disorder Gastroesophageal reflux disease, esophagitis presence not specified Anxiety and depression Dysthymic disorder History of alcohol abuse Nondependent alcohol abuse, in remission Situational anxiety- Primary Other anxiety states Allergic conjunctivitis of both eyes Other chronic allergic conjunctivitis Recurrent major depression in partial remission (HCC) Major depressive disorder, recurrent episode, in partial or unspecified remission Essential hypertension Unspecified essential hypertension Coronary artery disease involving [place] coronary artery of [place] heart without angina pectoris Chronic bronchitis, unspecified chronic bronchitis type ([facility]) Encounter for immunization Need for other specified prophylactic vaccination against single bacterial disease Mixed hyperlipidemia Lung nodule Solitary pulmonary nodule Screening for osteoporosis Special screening for osteoporosis Asymptomatic menopause Chronic midline low back pain with sciatica, sciatica laterality unspecified [facility] Diagnosis Pre-operative examination- Primary Preoperative examination, unspecified Primary osteoarthritis of right hip Primary localized osteoarthrosis, pelvic region and thigh Essential hypertension Unspecified essential hypertension Chronic bronchitis, unspecified chronic bronchitis type ([facility]) Smoker Tobacco use disorder Recurrent major depression in partial remission (HCC) Major depressive disorder, recurrent episode, in partial or unspecified remission Bipolar affective disorder, current episode mixed, current episode severity unspecified (HCC) Gastroesophageal reflux disease, esophagitis presence not specified PAD (peripheral artery disease) ([facility])- Primary Peripheral vascular disease, unspecified PAD (peripheral artery disease) ([facility]) Peripheral vascular disease, unspecified Essential hypertension Unspecified essential hypertension Smoker Tobacco use disorder Chronic bronchitis, unspecified chronic bronchitis type (HCC) Smoker Tobacco use disorder Hypomagnesemia Disorders of magnesium metabolism Preoperative examination- Primary Preoperative examination, unspecified PAD (peripheral artery disease) ([facility]) Peripheral vascular disease, unspecified Essential hypertension Unspecified essential hypertension Precordial pain, short lived, 3-5 minutes, nonexertional, no evidence of stress-induced ischemia on dobutamine echo in January 2019. Precordial pain Chronic bronchitis, unspecified chronic bronchitis type (HCC) Smoker Tobacco use disorder Gastroesophageal reflux disease, esophagitis presence not specified Anxiety and depression Dysthymic disorder History of alcohol abuse Nondependent alcohol abuse, in remission Situational anxiety- Primary Other anxiety states Allergic conjunctivitis of both eyes Other chronic allergic conjunctivitis Recurrent major depression in partial remission (HCC) Major depressive disorder, recurrent episode, in partial or unspecified remission Essential hypertension Unspecified essential hypertension Coronary artery disease involving [place] coronary artery of [place] heart without angina pectoris Chronic bronchitis, unspecified chronic bronchitis type (HCC) Encounter for immunization Need for other specified prophylactic vaccination against single bacterial disease Mixed hyperlipidemia Lung nodule Solitary pulmonary nodule Screening for osteoporosis Special screening for osteoporosis Asymptomatic menopause Hemoptysis Hemoptysis, unspecified [facility] Pre-operative examination- Primary Preoperative examination, unspecified Primary osteoarthritis of right hip Primary localized osteoarthrosis, pelvic region and thigh Essential hypertension Unspecified essential hypertension Chronic bronchitis, unspecified chronic bronchitis type (HCC) Smoker Tobacco use disorder Recurrent major depression in partial remission (HCC) Major depressive disorder, recurrent episode, in partial or unspecified remission Bipolar affective disorder, current episode mixed, current episode severity unspecified (HCC) Gastroesophageal reflux disease, esophagitis presence not specified PAD (peripheral artery disease) (HCC)- Primary Peripheral vascular disease, unspecified PAD (peripheral artery disease) (HCC) Peripheral vascular disease, unspecified Essential hypertension Unspecified essential hypertension Smoker Tobacco use disorder Chronic bronchitis, unspecified chronic bronchitis type (HCC) Essential hypertension Unspecified essential hypertension Smoker Tobacco use disorder Hypomagnesemia Disorders of magnesium metabolism Preoperative examination- Primary Preoperative examination, unspecified PAD (peripheral artery disease) (HCC) Peripheral vascular disease, unspecified Essential hypertension Unspecified essential hypertension Precordial pain, short lived, 3-5 minutes, nonexertional, no evidence of stress-induced ischemia on dobutamine echo in January 2019. Precordial pain Chronic bronchitis, unspecified chronic bronchitis type (HCC) Smoker Tobacco use disorder Gastroesophageal reflux disease, esophagitis presence not specified Anxiety and depression Dysthymic disorder History of alcohol abuse Nondependent alcohol abuse, in remission Pain Generalized pain Situational anxiety- Primary Other anxiety states Allergic conjunctivitis of both eyes Other chronic allergic conjunctivitis Recurrent major depression in partial remission (HCC) Major depressive disorder, recurrent episode, in partial or unspecified remission Essential hypertension Unspecified essential hypertension Coronary artery disease involving [place] coronary artery of [place] heart without angina pectoris Chronic bronchitis, unspecified chronic bronchitis type (HCC) Encounter for immunization Need for other specified prophylactic vaccination against single bacterial disease Mixed hyperlipidemia Lung nodule Solitary pulmonary nodule Screening for osteoporosis Special screening for osteoporosis Asymptomatic menopause [facility] Luque [facility] January 02, 2023 9:37pm Note Date/Time January 02, 2023 9:19pm [facility] Medical Records Department [address] [place] [address] History & Physical Exam 01/02/232135 MR#: [id number] Acct: [id number] Name: STEVEN KOENIG Rep #:[id number] : 1955 67 From: Linda Luque MD PCP: Dr. Ulises Hermosillo MD Status:R EG ER Location: ED HPI - General General Date of Admission: 01/02/23 Date of Service: 01/02/23 Chief Complaint: Chest pain, dyspnea, EtOH withdrawal with abuse. HPI Narrative The patient is a 67 y/o F w/ PMHx: COPD, HTN, HLD, Depression and Anxiety, EtOH abuse, Tobacco use who presents to the [facility] ED on 01/02/23 with history of severalcomplaints including chest discomfort starting approximately 10 in the morning ongoing since onset initially reporting having woken up at about 9 AM with onsetat 10 AM described as vague, pressure-like in sensation with dyspnea, worse withexertion with wheezing prompting eventual ED evaluation. Patient also reports ongoing alcohol intake with at least 12 beers a day with last drink at approximately 10 AM currently stating she is interested in detoxification. She notes that she was in rehab years prior but is worsened recently with the of her dog and the loss of her brother to a felony as well as another relative to a fentanyl overdose prompting her to desire to become clean and sober. Patient currently reports mild tremors, nausea and some tactile disturbances work-up in the ED included T97.6, heart rate 99, BP 127/69, respiratory rate 16,initially 95% on room air however de-escalated to 87% on room air eventually placed on 2 L nasal cannula noted to be 95%, CBC with WC 7.2, hemoglobin 14, platelet 478 without marked shift, CMP with chloride 109, T. bili 0.10 otherwisePaddock profile not marked appearing, lipase 235, troponin 17, urinalysis with no obvious evidence of UTI, urine drug screen negative, ethyl alcohol level 112,chest x-ray with COPD type changes with no acute cardiopulmonary findings otherwise, EKG with sinus rhythm with no acute evidence of ischemia. PFSH Medical History Alcohol abuse Anxiety and depression COPD (chronic obstructive pulmonary disease) HLD (hyperlipidemia) Hypertension Tobacco use Home Medications albuterol sulfate 90 mcg/actuation aerosol inhaler (Ventolin HFA) 2 puff inhalation Q2H PRN Wheezing ##1 05/25/14 [Rx Last Taken 02/21/18] Omeprazole [Prilosec] 40 mg PO DAILY ACID REFLUX 02/01/17 [History Last Taken 02/21/18] metoprolol tartrate 25 mg tablet 25 mg PO BID BLOOD PRESSURE 02/01/17 [History Last Taken 02/21/18] paroxetine HCl 30 mg tablet (Paxil) 30 mg PO DAILY MENTAL HEALTH 02/01/17 [History Last Taken 02/21/18] trazodone 100 mg tablet 100 mg PO QHS SLEEP 02/01/17 [History Last Taken Unknown] amlodipine 5 mg tablet 5 mg PO DAILY BLOOD PRESSURE 07/29/17 [History Last Taken 02/21/18] hydroxyzine pamoate 50 mg capsule (Vistaril) 50 mg PO TID PRN PRN Anxiety 07/29/17 [History Last Taken Unknown] lisinopril 40 mg tablet 40 mg PO DAILY BLOOD PRESSURE 07/29/17 [History Last Taken 02/21/18] Allergy/AdvReac Type Severity Reaction Status Date / Time No Known Allergies Allergy Verified 07/29/17 15:15 Family History (Updated 01/02/23 @ 21:[address] Linda Luque MD) Mother Liver cancer Father Lung cancer Family History no significant family his Surgical History (Updated 01/02/23 @ 21:[address] Linda Luque MD) History of cervical spinal surgery History of tonsillectomy S/P appendectomy S/P cholecystectomy Social History (Updated 01/02/23 @ 21:[address] Linda Luque MD) household members: spouse Smoking Status: Current every day smoker tobacco type: cigarettes Smoking packsper day: 1 Smoking cigarettes per day: 20.0 alcohol intake: current alcohol intake frequency: 3 or more drinks per day details: 12-14 beers daily. substance use type: does not use ROS ROS Narrative Admission Review of Systems: CONSTITUTIONAL: No weight loss, fever, chills, + weakness or fatigue. HEENT: + Congestion. Eyes: No visual loss, blurred vision, double vision or yellow sclerae. Ears, Nose, Throat: No hearing loss, sneezing, runny nose or sore throat. SKIN: No rash or itching, lesions, wounds. CARDIOVASCULAR: + chest pain, chest pressure or chest discomfort, No palpitations, edema, orthopnea, syncopal events. RESPIRATORY:+ shortness of breath, cough without marked sputum, wheezing, No hemoptysis. GASTROINTESTINAL: + anorexia, nausea, No vomiting or diarrhea, abdominal pain, melena, BRBPR. GENITOURINARY: No dysuria, frequency, urgency or retention. NEUROLOGICAL: + Mild tremors, tactile disturbances. No headache, dizziness, syncope, paralysis, ataxia, numbness or tingling in the extremities, focal weakness, change in bowel or bladder control, seizure. MUSCULOSKELETAL: + muscle, back pain, joint pain or stiffness. HEMATOLOGIC: No anemia, bleeding or bruising. LYMPHATICS: No enlarged nodes. No history of splenectomy. PSYCHIATRIC: + history of depression or anxiety. ENDOCRINOLOGIC: No reports of sweating, cold or heat intolerance. No polyuria orpolydipsia. ALLERGIES: No history of asthma, hives, eczema or rhinitis. Vital Signs Vital Signs Vital Signs: 01/02/23 17:54 01/02/23 18:52 01/02/23 19:00 Temperature 97.6 F L 98.5 F Temperature Source Temporal Temporal Pulse Rate 99 90 Respiratory Rate 16 18 Respiratory Effort Labored Accessory Muscle Use Blood Pressure 127/69 H 113/72 Blood Pressure Mean 88 85 Pulse Ox 95 Oxygen Delivery Method Room Air Room Air Room Air Oxygen Flow Rate (L/min) 01/02/23 19:18 01/02/23 19:25 01/02/23 19:25 Temperature Temperature Source Pulse Rate 101 H Respiratory Rate 17 Respiratory Effort Blood Pressure 114/71 Blood Pressure Mean 85 Pulse Ox 91 87 95 Oxygen Delivery Method Room Air Room Air Nasal Cannula Oxygen Flow Rate (L/min) 2 01/02/23 20:00 01/02/23 21:00 Temperature Temperature Source Pulse Rate 95 94 Respiratory Rate 23 H 22 H Respiratory Effort Blood Pressure 122/88 H Blood Pressure Mean 99 Pulse Ox 98 95 Oxygen Delivery Method Room Air Nasal Cannula Oxygen Flow Rate (L/min) 2 Weight Weight: 131 lb 3.2 oz Body Mass Index (BMI) 21.8 Physical Exam Narrative Physical Examination: General: Awake, alert, oriented x 3 and cooperative, seated upright in ED bed, fatigued, coughing during evaluation. Skin: Normal color, normal turgor, no icterus, no cyanosis. HEENT: AT/NC, EOMI, PERRLA, mildly dry MM, no carotid bruits or JVD noted. Lungs: Significantly diminished especially in the posterior randle, anterior field expiratory wheezing diffusely, coughing elicited with deep inspiratory effort, no rhonchi or rales, mildly increased respiratory rate but no distress. Heart: Currently regular rate and rhythm; no gallop, rub audible. Abdomen: Soft, NTTP, ND, normal BS, + mild HM. Extremities: No cyanosis, clubbing, or edema. Neurological: Patient awake, alert, oriented as noted, cognitive function intact; pupils equally reactive to light and accommodation, cranial nerves II-XII grossly normal, moving all 4 extremities, no focal deficits, strength moderately globally Tere secondary to acute presentation. Psychiatric: Affect appears fatigued, no acute evidence of depressive or anxietyfeelings but does have underlying history. Results Lab / Micro Data Result Diagrams: 01/02/23 19:17 01/02/23 19:17 Labs: Laboratory Results - last 24 hr 01/02/23 18:30: Urine Opiates Screen NEGATIVE, Urine Methadone Screen NEGATIVE, Ur Barbiturates Screen NEGATIVE, Ur Phencyclidine Scrn NEGATIVE, Ur AmphetaminesScreen NEGATIVE, MDMA (Ecstasy) Screen NEGATIVE, U Benzodiazepines Scrn NEGATIVE, Urine Cocaine Screen NEGATIVE, U Cannabinoids Screen NEGATIVE, Ur DrugScreen Comment 01/02/23 18:30: Urine Color Yellow, Urine Clarity Clear, Urine pH 6.0, Ur Specific [place] 1.005, Urine Protein Negative, Urine Glucose (UA) Normal, Urine Ketones Negative, Urine Occult Blood Negative, Urine Nitrite Negative, Urine Bilirubin Negative, Urine Urobilinogen Normal, Ur Leukocyte Esterase Negative, Urine RBC 0 SEEN, Urine WBC 0 SEEN, Ur Squamous Epith Cells 0-5 SEEN, Urine Bacteria 0 SEEN, Urine Mucus 0 SEEN 01/02/23 19:17: WBC 7.2, RBC 4.42, Hgb 14.0, Hct 43.9, MCV 99.3 H, MCH 31.7, MCHC 31.9 L, RDW Std Deviation 56.6 H, RDW Coeff of Ni 15.6 H, Plt Count 478 H,MPV 9.8, Immature Gran % (Auto) 0.400, Neut % (Auto) 50.1, Lymph % (Auto) 37.2, [place] % (Auto) 9.6, Eos % (Auto) 1.4, Baso % (Auto) 1.3 H, Absolute Neuts (auto) 3.6, Absolute Lymphs (auto) 2.67, Nucleated RBC % 0 01/02/23 19:17: Sodium 143, Potassium 3.6, Chloride 109 H, Carbon Dioxide 27.0, Anion Gap 7, BUN 11, Creatinine 0.80, Estim Creat Clear Calc 61.40, Est GFR (MDRD) Af Amer 91, Est GFR (MDRD) Non-Af 76, BUN/Creatinine Ratio 13.7, Glucose 76, Calcium 8.5, Total Bilirubin 0.10 L, AST 17, ALT 24, Alkaline Phosphatase 63, Troponin I High Sens 17, Total Protein 7.3, Albumin 3.4, Globulin 3.9, Albumin/Globulin Ratio 0.9, Lipase 235 01/02/23 19:17: Ethyl Alcohol 112.0 Radiology Impression Chest X-Ray 01/02/23 19:00 IMPRESSION: COPD. No acute cardiopulmonary pathology Electronically Signed: Dylan Sethi MD at 21:10 EST Reading Location ID and State: [facility] / [place] , Service support , Assessment & Plan Assessment/Plan (1) Chest pain: (2) COPD exacerbation: (3) Desire for detoxification: PLAN: Plan The patient is a 67 y/o F w/ PMHx: COPD, HTN, HLD, Depression and Anxiety, EtOH abuse, Tobacco use who presents to the [facility] ED on 01/02/23 with history of severalcomplaints including chest discomfort starting approximately 10 in the morning ongoing since onset initially reporting having woken up at about 9 AM with onsetat 10 AM described as vague, pressure-like in sensation with dyspnea, worse withexertion with wheezing prompting eventual ED evaluation. #1. Acute Hypoxia secondary to Acute Mild on Chronic COPD exacerbation: Will admit to PCU given #2 complaints to be cautious, maintain on oxygen with wean astolerated to room air, continue ATC duonebs, PRN albuterol, IV methylprednisolone, HOB, IS parameters, procalcitonin requested, full respiratory viral panel requested, sputum Cx if able to provide. #2. Chest Pain, suspected more so related to acute COPD exacerbation as noted #1: EKG in ED sinus rhythm with no evidence of ischemia, CXR w/ chronic COPD type changes with no acute cardiopulmonary findings otherwise, initial trop 17. Will place on a monitored bed to assure no acute myocardial infarction with serial cardiac enzymes and EKGs. Again lower suspicion for cardiac etiology butto be cautious we will trend enzymes, obtain FLP in a.m. as well as magnesium level. ASA, NG. If any concerning EKG changes or elevated enzymes arise may consider future stress testing. #3. Acute EtOH Withdrawal: Given interest in sobriety, will initiate and continue on protocol with taper course of Phenobarbital, scheduled gabapentin for seizure prophylaxis, as needed Bentyl, Vistaril, IV fluids, IV antiemetics, Tylenol as needed for pain. Will consult Case management for assistance for transition to next level of rehabilitation care. Mag, phos pending. Maintain on CIWA protocol concurrently. #4. Anxiety and depression: We will continue patient home trazodone as well as paroxetine home regimen, would benefit greatly from counseling especially given ongoing alcohol abuse and recent admissions of significant events in her life leading to increased alcohol consumption. #5. Hypertension: Continue home regimen including lisinopril, amlodipine, metoprolol, PRN hydralazine. #6. Hyperlipidemia: Not on statin therapy, FLP in AM given chest pain complaints and evaluation as noted. #7. Tobacco Abuse: Encouraged cessation, inpatient consultation per RT, NR if desired. #8. GERD: We will maintain on PPI. #9. DVT prophylaxis: SCDs, Lovenox. Admission Evaluation Time spent evaluating chart, patient history, patient evaluation, care planning and discussion with specialists: 76 minutes. Charges/Coding Visit Charges Inpatient E&M: 51726 Init Hosp L3 01/02/232136 <Electronically signed by Linda Luque MD> Cosigner Signature (if applicable): CC: Dr. Linda Luque MD; Dr. Ulises Hermosillo MD~ Signed [facility] Work Phone: Hospital Discharge instructions No data available for this section [facility] Note* Yolanda Gonzalez RN: PERFORM Event Display: [facility] Patient Summary Authored Date: [id number] Discharge Instructions Thank you for allowing [facility] to assist you with your healthcare needs. The following is importantdischarge information regarding your hospital visit. Diagnosis from [...] MD When Within 2-4 days Where: [address] [place] [address]- Allergies NKA Medications Please ask your primary doctor or pharmacist before taking any other medication not listed, including over the counter drugs, herbal medications, vitamins and or supplements as they may interact withyour home medications. What How Much When Why [...] and formoterol (inhalation) (dunia herbert and mariluz marcos) Symbicort What is the [...] uncontrolled asthma during may cause complications such aslow weight, premature , or eclampsia (dangerously high [...] can be serious or even fatal in peoplewho are using a steroid such as budesonide. [...] may report side effects to FDA at 4-535-WGO-1367. What other drugs will affect budesonide and formoterol? Sometimes it is not safe to use certain medications at the same time. Some drugs can affect your blood levels of other drugs you take, which may increase side effects or make the medications less effective. Many drugs can affect budesonide and formoterol. This includes prescription and ytbi-hoe-mwbpvdr medicines, vitamins, and herbal products. Not all [...] to ensure that the information provided by [employer]. ('[employer]') is accurate, up-to-date, and complete, but no guarantee is made to that effect. Drug information contained herein may be time sensitive. [employer] information has been compiled for use by healthcare practitioners and consumers in the [place] and therefore [employer] does not warrant that uses outside of the [place] are appropriate, unless specifically indicated otherwise. [employer]'s drug information does not endorse drugs, diagnose patients or recommend therapy. [employer] drug information isan informational resource designed to assist licensed healthcare practitioners in caring for their p atients and/or to serve consumers viewing this service as a supplement to, and not a substitute for, the expertise, skill, knowledge and judgment of healthcare practitioners. The absence of a warningfor a given drug or drug combination in no way should be construed to indicate that the drug or drug combination is safe, effective or appropriate for any given patient. [facility] does not assume any responsibility for any aspect of healthcare administered with the aid of information [facility] provides. The information contained herein is not intended to cover all possible uses, directions, precautions, warnings, drug interactions, allergic reactions, or adverse effects. If you have questions about the drugs you are taking, check with your doctor, nurse or pharmacist. Copyright 2952-6484 [employer]. Version: 9.02. Revision Date: 07/08/2019. prednisone (PRED sameer scottstephanieBj Cervantes What is the most important information [...] blood cell disorders, kidney disorders, leukemia, lymphoma, multi ple sclerosis, organ transplant rejection, swelling from a [...] can be serious or even fatal in peoplewho are using steroid medicine. Avoid drinking alcohol. [...] may report side effects to FDA at 2-075-CCZ-1382. What other drugs will affect prednisone? Sometimes [...] may affect prednisone. This includes prescription and cglj-ntq-kxqaies medicines, vitamins, and herbal products. Not all [...] to ensure that the information provided by [employer]. ('[employer]') is accurate, up-to-date, and complete, but no guarantee is made to that effect. Drug information contained herein may be time sensitive. [employer] information has been compiled for use by healthcare practitioners and consumers in the [place] and therefore [employer] does not warrant that uses outside of the [place] are appropriate, unless specifically indicated otherwise. [employer] drug information does not endorse drugs, diagnose patients or recommend therapy. [employer] drug information isan informational resource designed to assist licensed healthcare practitioners in caring for their p atients and/or to serve consumers viewing this service as a supplement to, and not a substitute for, the expertise, skill, knowledge and judgment of healthcare practitioners. The absence of a warningfor a given drug or drug combination in no way should be construed to indicate that the drug or drug combination is safe, effective or appropriate for any given patient. [facility] does not assume any responsibility for any aspect of healthcare administered with the aid of information [facility] provides. The information contained herein is not intended to cover all possible uses, directions, precautions, warnings, drug interactions, allergic reactions, or adverse effects. If you have questions about the drugs you are taking, check with your doctor, nurse or pharmacist. Copyright 4514-6899 [facility]. Version: 10. Revision Date: 02/05/2019. doxycycline (oral/injection) (DOX sandra [...] eye infections, gonorrhea, chlamydia, periodontitis (gum disease), andothers. Doxycycline is also used to treat blemishes, [...] or life-threatening conditions such as anthrax or [place] spotted fever. The benefit of treating a [...] reaction (fever, sore throat, burning in your eyes,skin pain, red or purple skin rash that [...] may report side effects to FDA at 0-632-YQH-4996. What other drugs will affect doxycycline? Sometimes it is not safe to use certain medications at the same time. Some drugs can affect your blood levels of other drugs you take, which may increase side effects or make the medications less effective. Other drugs may affect doxycycline, including prescription and yhat-fyz-jahzdqk medicines, vitamins, and herbal products. Tell your [...] to ensure that the information provided by [employer]. ('[employer]') is accurate, up-to-date, and complete, but no guarantee is made to that effect. Drug information contained herein may be time sensitive. [employer] information has been compiled for use by healthcare practitioners and consumers in the [place] and therefore [employer] does not warrant that uses outside of the [place] are appropriate, unless specifically indicated otherwise. [employer] drug information does not endorse drugs, diagnose patients or recommend therapy. [employer] drug information isan informational resource designed to assist licensed healthcare practitioners in caring for their p atients and/or to serve consumers viewing this service as a supplement to, and not a substitute for, the expertise, skill, knowledge and judgment of healthcare practitioners. The absence of a warningfor a given drug or drug combination in no way should be construed to indicate that the drug or drug combination is safe, effective or appropriate for any given patient. [facility] does not assume any responsibility for any aspect of healthcare administered with the aid of information [facility] provides. The information contained herein is not intended to cover all possible uses, directions, precautions, warnings, drug interactions, allergic reactions, or adverse effects. If you have questions about the drugs you are taking, check with your doctor, nurse or pharmacist. Copyright 8785-0704 [employer]. Version: 21.04. Revision Date: 09/14/2020. Education Materials [...] your ankles gets worse Dizziness or weakness 2441-2055 [employer]. [address] [place] [address], [place] [address]. All rights reserved. This information is not intended as a substitute for professional medical care. Always follow yourhealthcare professional's instructions. Additional Information VACCINATE! IT SAVES LIVES! Members of the community who have not yet received the COVID-19 vaccine and would like to receive it can visit one of [facility] vaccine clinics. There are many vaccine clinic locations within the [facility]. For locations and available times, please visit [email or web address]. It is important to note that some COVID mobile vaccine clinics are held outdoors and may be canceled in rainy orstormy conditions. To learn more about pediatric vaccinations (ages 5-11), we invite you to visit the [facility] webpage. [email or web address] learn more about the COVID-19 vaccine, we invite you to visit the [facility] website for a list of frequently asked questions. [email or web address] [facility] Patient Portal Access Instructions: Stay connected with your healthcare team and access your personal medical information anytime with the [facility] Patient Portal. If you would like a full copy of your medical records please contact the [facility] Medical Records Department Saturday through Saturday between 8a.m. and 4:30p.m. Please follow the directions below to access the portal: 1.Access the email account you provided upon registration to the hospital.2.Look for an invitation email from [facility].3.Open the email and access the invitation link: Accept Invitation to [facility].Fill in the required randle to create your account. Sign into [email or web address] with your username and password that you [...] you will allow to register on the [facility] Patient Portal for access to your information. You can also access the [facility] Patient Portal on the [employer] Simply click on "Health Records" under "HealthData" and then click on the [employer] logo. HOW TO SAFELY DISPOSE OF PRESCRIPTION MEDICATIONS Please use one of the following methods to safely dispose of your unused medications. 1.Use a drug disposal kit: the drug disposal pouch allows you to safely discard your old and unuseddrugs. Ask your nurse to give you one when you are discharged.2.Visit a local take-back location: Many local pharmacies and police departments have programs that collect old and unwanted prescriptiondrugs. Call your local pharmacy or go to [email or web address] to find one close to you.3.Make use of household items: Use cat litter or old coffee grounds to dispose medications if other options arenot available. Mix your drugs with these household products, seal them in an airtight container andthrow it into the garbage. Call [facility]: [phone] to be sure your drugs can be [...] drowsiness, such as benzodiazepines, also known as benzos,including diazepam and alprazolam, muscle relaxants or sleep aids. Never sell or share prescriptionopioids. This is illegal. Store opioids in a [...] been reviewed and explained to me and I,STEVEN KOENIG understand my current condition and have read and understand these discharge instructions. I have received a written copy of the plan/instructions. If I have questions, I am aware that I should contact my doctor. 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[employer] Signature: Date/Time: Relationship to Patient: Witness Name/Signature: Date/Time: * ZINA GLOVER DO: SIGN, VERIFY Event Display: EKG [ED AO] - CV Authored Date: [id number] [facility] Progress note No data available for this section [facility] Reason for referral (narrative)* Outpatient Procedure (Routine) - Authorized Specialty Diagnoses / Procedures Referred By Contac t Referred To Contact [facility] Diagnoses DIAZ (dyspnea on exertion) Procedures ECHO ECHO TTHRC R-T 2D W/WOM-MODE COMPL SPEC&COLR D Tracy Ramires APRN.ANESTHESIOLOGY FACULTY [address] [facility] [address] [place] [address] [facility] [place] [address] [place] [address] Referral ID Status Reason Start Date Expiration Date Visits Requested Visits Authorized [id number] Authorized Auto-Generat ed Referral 04/30/2022 04/30/2023 1 1 [facility] for referral (narrative)* Outpatient Procedure (Routine) - Authorized Specialty Diagnoses / Procedures Referred By Contac t Referred To Contact [facility] Diagnoses SOB (shortness of breath) Procedures OXIMETRY WITH AMBULATION NONINVASIVE EAR/PULSE OXIMETRY MULTIPLE Margaret Atwood MD [address] [place] [address] [facility] [place] [address] [place] [address] Referral ID Status Reason Start Date Expiration Date Visits Requested Visits Authorized [id number] Authorized Auto-Generat ed Referral 07/06/2022 08/05/2023 1 1 [facility] for referral (narrative)* Outpatient Procedure (Routine) - Authorized Specialty Diagnoses / Procedures Referred By Contac t Referred To Contact [facility] Diagnoses Peripheral arterial disease (HCC) Procedures PVR LEG SHERIN VAS LAB NON-INVASIVE PHYSIOLOGIC STUDY EXTREMITY 3 Doron Mahoney DO [address] [place] [address] [address] Referral ID Status Reason Start Date Expiration Date Visits Requested Visits Authorized [id number] Authorized Auto-Generat ed Referral 2 11/10/2022 1 1 [facility] for referral (narrative)* Outpatient Procedure (Routine) - Pending Review Specialty Diagnoses / Procedures Referred By Contac t Referred To Contact [facility] Diagnoses PAD (peripheral artery disease) (HCC) Procedures PVR LEG SHERIN VAS LAB NON-INVASIVE PHYSIOLOGIC STUDY EXTREMITY 3 Doron Mahoney DO [address] [place] [address] [address] Referral ID Status Reason Start Date Expiration Date Visits Requested Visits Authorized [id number] Pending Review Auto-Generat ed Referral 2 10/02/2023 1 1 [facility] for referral (narrative)* Diagnostic Procedure Only (Routine) - Closed Specialty Diagnoses / Procedures Referred By Contac t Referred To Contact XR IMAGING Diagnoses Chronic midline low back pain with sciatica, sciatica laterality unspecified Procedures XR LUMBAR GENERAL 3V AP/LAT/L5-S1 RADEX SPINE LUMBOSACRAL 2/3 VIEWS Oly Smith APRN.ANESTHESIOLOGY FACULTY [address] [place] [address] Xr Imaging Referral ID Status Reason Start Date Expiration Date V isits Requested Visits Authorized [id number] Closed Auto-Generate d Referral 05/08/2023 06/06/2024 1 1 * Transition of Care (Routine) - Ref Not Required Specialty Diagnoses / Procedures Referred By Contac t Referred To Contact Dermatology Diagnoses Lesion of left ear Procedures CONSULT TO DERMATOLOGY Oly Smith APRN.ANESTHESIOLOGY FACULTY [address] [place] [address] Referral ID Status Reason Start Date Expiration Date Visits Requested Visits Authorized [id number] Ref Not Required PCP Requested Referral 05/08/2023 05/07/2024 1 1 [facility] for referral (narrative)* Diagnostic Procedure Only (Routine) - Closed Specialty Diagnoses / Procedures Referred By Contac t Referred To Contact XR IMAGING Diagnoses Chronic midline low back pain with sciatica, sciatica laterality unspecified Procedures XR LUMBAR GENERAL 3V AP/LAT/L5-S1 RADEX SPINE LUMBOSACRAL 2/3 VIEWS Oly Durbin APRN.ANESTHESIOLOGY FACULTY [address] [place] [address] [place] [address] Referral ID Status Reason Start Date Expiration Date V isits Requested Visits Authorized [id number] Closed Auto-Generate d Referral 05/08/2023 06/06/2024 1 1 [facility] for visit Narrative* Outpatient Procedure (Routine) - Closed Specialty Diagnoses / Procedures Referred By Contac t Referred To Contact [facility] Diagnoses DIAZ (dyspnea on exertion) Procedures ECHO ECHO TTHRC R-T 2D W/WOM-MODE COMPL SPEC&COLR D Tracy Ramires, [employer] PACKER.ANESTHESIOLOGY FACULTY [address] [place] [address] [place] [address] [facility] [place] [address] [place] [address] Referral ID Status Reason Start Date Expiration Date V isits Requested Visits Authorized [id number] Closed Auto-Generate d Referral 04/30/2022 04/30/2023 1 1 [facility] for visit Narrative* Outpatient Procedure (Routine) - Closed Specialty Diagnoses / Procedures Referred By Contac t Referred To Contact [facility] Diagnoses SOB (shortness of breath) Procedures OXIMETRY WITH AMBULATION NONINVASIVE EAR/PULSE OXIMETRY MULTIPLE DETER Margaret Kasper MD [address] [place] [address] Res[facility] [place] [address] [place] [address] Referral ID Status Reason Start Date Expiration Date V isits Requested Visits Authorized [id number] Closed Auto-Generate d Referral 07/06/2022 08/05/2023 1 1 [facility] for visit Narrative* Diagnostic Procedure Only (Routine) - Closed Specialty Diagnoses / Procedures Referred By Contac t Referred To Contact XR IMAGING Diagnoses Chronic midline low back pain with sciatica, sciatica laterality unspecified Procedures XR LUMBAR GENERAL 3V AP/LAT/L5-S1 RADEX SPINE LUMBOSACRAL 2/3 VIEWS Oly Durbin, [employer] PACKER.ANESTHESIOLOGY FACULTY [address] [place] [address] [place] [address] Referral ID Status Reason Start Date Expiration Date V isits Requested Visits Authorized [id number] Closed Auto-Generate d Referral 05/08/2023 06/06/2024 1 1 [facility] Summary Purpose Family History No Family History Records Found Relationship Condition Age at Onset Recorded Date/T eyad mother Malignant neoplasm of liver Unknown father Malignant neoplasm of lung Unknown Advance Directives No Advanced Directives Records FoundDocuments on File Type Date Recorded 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 Advance Directive(s) 08/25/2021 8:30 AM Advance Directive(s) 07/27/2021 5:44 PM Advance Directive(s) 10/20/2019 11:23 AM Advance Directive(s) 10/05/2019 10:43 AM Advance Directive(s) 03/25/2019 7:55 AM Advance Directive(s) 01/06/2019 12:24 PM Advance Directive(s) 03/19/2017 9:41 AM Documents on File Type Date Recorded 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 Advance Directive(s) 08/25/2021 8:30 AM Advance Directive(s) 07/27/2021 5:44 PM Advance Directive(s) 10/20/2019 11:23 AM Advance Directive(s) 10/05/2019 10:43 AM Advance Directive(s) 03/25/2019 7:55 AM Advance Directive(s) 01/06/2019 12:24 PM Advance Directive(s) 03/19/2017 9:41 AM Advance Directive Response Recorded Date/ Time Advance Directives No May 24 2:30pm Living Will No January 02, 2 023 6:52pm Power of Cms Expert No January 02, 2023 6:52pm Advance Directive Response Recorded Date/ Time Advance Directives No May 24 2:30pm Living Will No January 02, 2 023 11:38pm Power of Cms Expert No January 02, 2023 11:38pm Latest Code Status on File Code Status Date Activated Date Inactivated Comments Full Code 04/30/2018 3:04 AM 05/05/2018 2:43 PM Reason for Referral Specialty Diagnoses / Procedures Referred By Contac t Referred To Contact Pulmonary and Critical Care Medicine Diagnoses Dyspnea on exertion Procedures CONSULT TO PULM/CRITICAL CARE OFFICE/OUTPATIENT NEW HIGH MDM 60-74 MINUTES Nicole Kenny, [employer] PACKER.ANESTHESIOLOGY FACULTY [address] [place] [address] Referral ID Status Reason Start Date Expiration Date Visits Requested Visits Authorized [id number] Authorized PCP Requested Referral 03/13/2022 03/13/2023 1 1 Specialty Diagnoses / Procedures Referred By Contac t Referred To Contact [facility] Diagnoses Dyspnea on exertion Procedures LUNG DIFFUSION CAPACITY (DLCO) DIFFUSING CAPACITY Nicole Kenny, [employer] PACKER.ANESTHESIOLOGY FACULTY [address] [place] [address] [facility] [place] [address] [place] [address] Referral ID Status Reason Start Date Expiration Date Visits Requested Visits Authorized [id number] Authorized Auto-Generat ed Referral 03/13/2022 04/12/2023 1 1 Specialty Diagnoses / Procedures Referred By Contac t Referred To Contact [facility] Diagnoses Dyspnea on exertion Procedures SPIROMETRY - BASELINE AND POST DILATOR BRNCDILAT RSPSE SPMTRY PRE&POST-BRNCDILAT ADMN Nicole Kenny, [employer] PACKER.ANESTHESIOLOGY FACULTY [address] [place] [address] [facility] [place] [address] [place] [address] Referral ID Status Reason Start Date Expiration Date Visits Requested Visits Authorized [id number] Authorized Auto-Generat ed Referral 03/13/2022 04/12/2023 1 1 Specialty Diagnoses / Procedures Referred By Contac t Referred To Contact Vascular Surgery Diagnoses PAD (peripheral artery disease) (HCC) Procedures CONSULT TO VASCULAR SURGERY OFFICE/OUTPATIENT [facility] MDM 60-74 MINUTES Ulises Hermosillo MD [address] [place] [address] Referral ID Status Reason Start Date Expiration Date Visits Requested Visits Authorized [id number] Authorized PCP Requested Referral 05/11/2022 05/11/2023 1 1 Specialty Diagnoses / Procedures Referred By Contac t Referred To Contact [facility] Diagnoses PAD (peripheral artery disease) (HCC) Procedures PVR LEG SHERIN VAS LAB NON-INVASIVE PHYSIOLOGIC STUDY EXTREMITY 3 LEVLS Ulises Hermosillo MD [address] [place] [address] [facility] [place] [address] [place] [address] Referral ID Status Reason Start Date Expiration Date Visits Requested Visits Authorized [id number] Authorized Auto-Generat ed Referral 05/11/2022 05/11/2023 1 1 Specialty Diagnoses / Procedures Referred By Contac t Referred To Contact CT IMAGING Diagnoses Smoker Encounter for screening for malignant neoplasm of lung Procedures CT LUNG SCREEN WO IVCON COMPUTED TOMOGRAPHY THORAX LW DOSE LNG CA SCR C- Nicole Kenny, [employer] PACKER.ANESTHESIOLOGY FACULTY [address] [place] [address] Ct Imaging Referral ID Status Reason Start Date Expiration Date Visits Requested Visits Authorized [id number] Pending Review Auto-Generat ed Referral 05/30/2022 06/29/2023 1 1 Specialty Diagnoses / Procedures Referred By Contac t Referred To Contact [facility] Diagnoses Radiculopathy, lumbar region Chronic midline low back pain with sciatica, sciatica laterality unspecified Procedures CONSULT TO PHYSICAL THERAPY PHYSICAL THERAPY EVALUATION [facility] COM[facility]X 45 MINS Older, Oly, [employer] PACKER.ANESTHESIOLOGY FACULTY [address] [place] [address] [facility] [place] [address] [place] [address] Referral ID Status Reason Start Date Expiration Date Visits Requested Visits Authorized [id number] Pending Review Auto-Generat ed Referral 05/13/2023 05/12/2024 1 1 Specialty Diagnoses / Procedures Referred By Contac t Referred To Contact Pain Management Diagnoses Radiculopathy, lumbar region Chronic midline low back pain with sciatica, sciatica laterality unspecified Procedures CONSULT TO PAIN MGT OFFICE/OUTPATIENT [facility] 60-74 MINUTES Older, Oly, [employer] PACKER.ANESTHESIOLOGY FACULTY [address] [place] [address] Referral ID Status Reason Start Date Expiration Date Visits Requested Visits Authorized [id number] Pending Review PCP Requested Referral 05/13/2023 05/12/2024 1 1 Specialty Diagnoses / Procedures Referred By Contac t Referred To Contact CT IMAGING Diagnoses Encounter for screening for lung cancer Tobacco use current Procedures CT LUNG SCREEN WO IVCON COMPUTED TOMOGRAPHY THORAX LW DOSE LNG CA SCR Reg- Fifi Clifton, [employer] RO[employer] PACKER.ANESTHESIOLOGY FACULTY [address] [place] [address] Ct Imaging Referral ID Status Reason Start Date Expiration Date Visits Requested Visits Authorized [id number] Pending Review Auto-Generat ed Referral 05/28/2023 06/26/2024 1 1 Chief Complaint and Reason for Visit Chief Complaint CHEST PAIN, COPD EXA C, ETOH WITHDRAWAL chest pain Reason for Visit Alcohol intoxication Chest pain Desire for detoxification COPD exacerbation Chief Complaint CHEST PAIN, COPD EXA C, ETOH WITHDRAWAL chest pain CHEST PAIN, COPD EXAC, ETOH WITHDRAWAL CHEST PAIN, COPD EXAC, ETOH WITHDRAWAL CHEST PAIN, COPD EXAC, ETOH WITHDRAWAL CHEST PAIN, COPD EXAC, ETOH WITHDRAWAL Reason for Visit Alcohol intoxication Chest pain Desire for detoxification Peripheral arterial disease Pneumococcal pneumonia Rash COPD exacerbation Additional Source Comments INFORMATION SOURCE (unrecogn ized section and content) DATE CREATED AUTHOR 04/29/2018 [facility] DATE CREATED AUTHOR AUTHOR'S ORGANIZ ATION 05/04/2018 [facility] DATE CREATED AUTHOR AUTHOR'S ORGANIZ ATION 01/05/2022 [facility] DATE CREATED AUTHOR AUTHOR'S ORGANIZ ATION 08/11/2022 [facility] DATE CREATED AUTHOR AUTHOR'S ORGANIZ ATION 12/29/2022 [facility] ([place]) DATE CREATED AUTHOR AUTHOR'S ORGANIZ ATION 01/08/2023 [facility] DATE CREATED AUTHOR AUTHOR'S ORGANIZ ATION 10/05/2023 [facility] DATE CREATED AUTHOR AUTHOR'S ORGANIZ ATION 07/02/2025 [facility] DATE CREATED AUTHOR AUTHOR'S ORGANIZ ATION 07/25/2025 [facility] DATE CREATED AUTHOR AUTHOR'S ORGANIZ ATION 07/28/2025 [facility] Source Comments (unrecognize d section and content) In the event this informatio n is protected by the Federal Confidentiality of Alcohol and Drug Abuse Patient Records regulations: The Federal rules restrict any use of the information to criminally investigate or prosecute any alcohol or drug abuse patient.[facility] the event this information is protected by the Federal Confidentiality of Alcohol and Drug Abuse Patient Records regulations: The Federal rules restrict any use of the information to criminally investigate or prosecute any alcohol or drug abuse patient.[facility] HospitalIn the event this information is protected by the Federal Confidentiality of Alcohol and Drug Abuse Patient Records regulations: The Federal rules restrict any use of the information to criminally investigate or prosecute any alcohol or drug abuse patient.[facility] HospitalIn the event this information is protected by the Federal Confidentiality of Alcohol and Drug Abuse Patient Records regulations: The Federal rules restrict any use of the information to criminally investigate or prosecute any alcohol or drug abuse patient.[facility] HospitalIn the event this information is protected by the Federal Confidentiality of Alcohol and Drug Abuse Patient Records regulations: The Federal rules restrict any use of the information to criminally investigate or prosecute any alcohol or drug abuse patient.[facility] HospitalIn the event this information is protected by the Federal Confidentiality of Alcohol and Drug Abuse Patient Records regulations: The Federal rules restrict any use of the information to criminally investigate or prosecute any alcohol or drug abuse patient.[facility] HospitalIn the event this information is protected by the Federal Confidentiality of Alcohol and Drug Abuse Patient Records regulations: The Federal rules restrict any use of the information to criminally investigate or prosecute any alcohol or drug abuse patient.[facility] HospitalIn the event this information is protected by the Federal Confidentiality of Alcohol and Drug Abuse Patient Records regulations: The Federal rules restrict any use of the information to criminally investigate or prosecute any alcohol or drug abuse patient.[facility] Hospital[facility] the event this information is protected by the Federal Confidentiality of Alcohol and Drug Abuse Patient Records regulations: The Federal rules restrict any use of the information to criminally investigate or prosecute any alcohol or drug abuse patient.[facility] HospitalIn the event this information is protected by the Federal Confidentiality of Alcohol and Drug Abuse Patient Records regulations: The Federal rules restrict any use of the information to criminally investigate or prosecute any alcohol or drug abuse patient.[facility] HospitalIn the event this information is protected by the Federal Confidentiality of Alcohol and Drug Abuse Patient Records regulations: The Federal rules restrict any use of the information to criminally investigate or prosecute any alcohol or drug abuse patient.[facility] HospitalIn the event this information is protected by the Federal Confidentiality of Alcohol and Drug Abuse Patient Records regulations: The Federal rules restrict any use of the information to criminally investigate or prosecute any alcohol or drug abuse patient.[facility] HospitalIn the event this information is protected by the Federal Confidentiality of Alcohol and Drug Abuse Patient Records regulations: The Federal rules restrict any use of the information to criminally investigate or prosecute any alcohol or drug abuse patient.[facility] HospitalIn the event this information is protected by the Federal Confidentiality of Alcohol and Drug Abuse Patient Records regulations: The Federal rules restrict any use of the information to criminally investigate or prosecute any alcohol or drug abuse patient.[facility] HospitalIn the event this information is protected by the Federal Confidentiality of Alcohol and Drug Abuse Patient Records regulations: The Federal rules restrict any use of the information to criminally investigate or prosecute any alcohol or drug abuse patient.[facility] HospitalIn the event this information is protected by the Federal Confidentiality of Alcohol and Drug Abuse Patient Records regulations: The Federal rules restrict any use of the information to criminally investigate or prosecute any alcohol or drug abuse patient.[facility] HospitalIn the event this information is protected by the Federal Confidentiality of Alcohol and Drug Abuse Patient Records regulations: The Federal rules restrict any use of the information to criminally investigate or prosecute any alcohol or drug abuse patient.[facility] HospitalIn the event this information is protected by the Federal Confidentiality of Alcohol and Drug Abuse Patient Records regulations: The Federal rules restrict any use of the information to criminally investigate or prosecute any alcohol or drug abuse patient.[facility] HospitalIn the event this information is protected by the Federal Confidentiality of Alcohol and Drug Abuse Patient Records regulations: The Federal rules restrict any use of the information to criminally investigate or prosecute any alcohol or drug abuse patient.[facility] HospitalIn the event this information is protected by the Federal Confidentiality of Alcohol and Drug Abuse Patient Records regulations: The Federal rules restrict any use of the information to criminally investigate or prosecute any alcohol or drug abuse patient.[facility] HospitalIn the event this information is protected by the Federal Confidentiality of Alcohol and Drug Abuse Patient Records regulations: The Federal rules restrict any use of the information to criminally investigate or prosecute any alcohol or drug abuse patient.[facility] HospitalIn the event this information is protected by the Federal Confidentiality of Alcohol and Drug Abuse Patient Records regulations: The Federal rules restrict any use of the information to criminally investigate or prosecute any alcohol or drug abuse patient.[facility] HospitalIn the event this information is protected by the Federal Confidentiality of Alcohol and Drug Abuse Patient Records regulations: The Federal rules restrict any use of the information to criminally investigate or prosecute any alcohol or drug abuse patient.[facility] HospitalIn the event this information is protected by the Federal Confidentiality of Alcohol and Drug Abuse Patient Records regulations: The Federal rules restrict any use of the information to criminally investigate or prosecute any alcohol or drug abuse patient.[facility] HospitalIn the event this information is protected by the Federal Confidentiality of Alcohol and Drug Abuse Patient Records regulations: The Federal rules restrict any use of the information to criminally investigate or prosecute any alcohol or drug abuse patient.[facility] HospitalIn the event this information is protected by the Federal Confidentiality of Alcohol and Drug Abuse Patient Records regulations: The Federal rules restrict any use of the information to criminally investigate or prosecute any alcohol or drug abuse patient.[facility] HospitalIn the event this information is protected by the Federal Confidentiality of Alcohol and Drug Abuse Patient Records regulations: The Federal rules restrict any use of the information to criminally investigate or prosecute any alcohol or drug abuse patient.[facility] HospitalIn the event this information is protected by the Federal Confidentiality of Alcohol and Drug Abuse Patient Records regulations: The Federal rules restrict any use of the information to criminally investigate or prosecute any alcohol or drug abuse patient.[facility] HospitalIn the event this information is protected by the Federal Confidentiality of Alcohol and Drug Abuse Patient Records regulations: The Federal rules restrict any use of the information to criminally investigate or prosecute any alcohol or drug abuse patient.[facility] HospitalIn the event this information is protected by the Federal Confidentiality of Alcohol and Drug Abuse Patient Records regulations: The Federal rules restrict any use of the information to criminally investigate or prosecute any alcohol or drug abuse patient.[facility] HospitalIn the event this information is protected by the Federal Confidentiality of Alcohol and Drug Abuse Patient Records regulations: The Federal rules restrict any use of the information to criminally investigate or prosecute any alcohol or drug abuse patient.[facility] HospitalIn the event this information is protected by the Federal Confidentiality of Alcohol and Drug Abuse Patient Records regulations: The Federal rules restrict any use of the information to criminally investigate or prosecute any alcohol or drug abuse patient.[facility] HospitalIn the event this information is protected by the Federal Confidentiality of Alcohol and Drug Abuse Patient Records regulations: The Federal rules restrict any use of the information to criminally investigate or prosecute any alcohol or drug abuse patient.[facility] HospitalIn the event this information is protected by the Federal Confidentiality of Alcohol and Drug Abuse Patient Records regulations: The Federal rules restrict any use of the information to criminally investigate or prosecute any alcohol or drug abuse patient.[facility] HospitalIn the event this information is protected by the Federal Confidentiality of Alcohol and Drug Abuse Patient Records regulations: The Federal rules restrict any use of the information to criminally investigate or prosecute any alcohol or drug abuse patient.[facility] HospitalIn the event this information is protected by the Federal Confidentiality of Alcohol and Drug Abuse Patient Records regulations: The Federal rules restrict any use of the information to criminally investigate or prosecute any alcohol or drug abuse patient.[facility] HospitalIn the event this information is protected by the Federal Confidentiality of Alcohol and Drug Abuse Patient Records regulations: The Federal rules restrict any use of the information to criminally investigate or prosecute any alcohol or drug abuse patient.[facility] HospitalIn the event this information is protected by the Federal Confidentiality of Alcohol and Drug Abuse Patient Records regulations: The Federal rules restrict any use of the information to criminally investigate or prosecute any alcohol or drug abuse patient.[facility] HospitalIn the event this information is protected by the Federal Confidentiality of Alcohol and Drug Abuse Patient Records regulations: The Federal rules restrict any use of the information to criminally investigate or prosecute any alcohol or drug abuse patient.[facility] HospitalIn the event this information is protected by the Federal Confidentiality of Alcohol and Drug Abuse Patient Records regulations: The Federal rules restrict any use of the information to criminally investigate or prosecute any alcohol or drug abuse patient.[facility] HospitalIn the event this information is protected by the Federal Confidentiality of Alcohol and Drug Abuse Patient Records regulations: The Federal rules restrict any use of the information to criminally investigate or prosecute any alcohol or drug abuse patient.[facility] HospitalIn the event this information is protected by the Federal Confidentiality of Alcohol and Drug Abuse Patient Records regulations: The Federal rules restrict any use of the information to criminally investigate or prosecute any alcohol or drug abuse patient.[facility] HospitalIn the event this information is protected by the Federal Confidentiality of Alcohol and Drug Abuse Patient Records regulations: The Federal rules restrict any use of the information to criminally investigate or prosecute any alcohol or drug abuse patient.[facility] HospitalIn the event this information is protected by the Federal Confidentiality of Alcohol and Drug Abuse Patient Records regulations: The Federal rules restrict any use of the information to criminally investigate or prosecute any alcohol or drug abuse patient.[facility] HospitalIn the event this information is protected by the Federal Confidentiality of Alcohol and Drug Abuse Patient Records regulations: The Federal rules restrict any use of the information to criminally investigate or prosecute any alcohol or drug abuse patient.[facility] HospitalIn the event this information is protected by the Federal Confidentiality of Alcohol and Drug Abuse Patient Records regulations: The Federal rules restrict any use of the information to criminally investigate or prosecute any alcohol or drug abuse patient.[facility] HospitalIn the event this information is protected by the Federal Confidentiality of Alcohol and Drug Abuse Patient Records regulations: The Federal rules restrict any use of the information to criminally investigate or prosecute any alcohol or drug abuse patient.[facility] HospitalIn the event this information is protected by the Federal Confidentiality of Alcohol and Drug Abuse Patient Records regulations: The Federal rules restrict any use of the information to criminally investigate or prosecute any alcohol or drug abuse patient.[facility] HospitalIn the event this information is protected by the Federal Confidentiality of Alcohol and Drug Abuse Patient Records regulations: The Federal rules restrict any use of the information to criminally investigate or prosecute any alcohol or drug abuse patient.[facility] HospitalIn the event this information is protected by the Federal Confidentiality of Alcohol and Drug Abuse Patient Records regulations: The Federal rules restrict any use of the information to criminally investigate or prosecute any alcohol or drug abuse patient.[facility] HospitalIn the event this information is protected by the Federal Confidentiality of Alcohol and Drug Abuse Patient Records regulations: The Federal rules restrict any use of the information to criminally investigate or prosecute any alcohol or drug abuse patient.[facility] HospitalIn the event this information is protected by the Federal Confidentiality of Alcohol and Drug Abuse Patient Records regulations: The Federal rules restrict any use of the information to criminally investigate or prosecute any alcohol or drug abuse patient.[facility] HospitalIn the event this information is protected by the Federal Confidentiality of Alcohol and Drug Abuse Patient Records regulations: The Federal rules restrict any use of the information to criminally investigate or prosecute any alcohol or drug abuse patient.[facility] Reason for Visit (unrecogniz ed section and content) Reason Onset Date Comments Refill Request [...] Spirometry Specialty Diagnoses / Procedures Referred By Contac t Referred To Contact [facility] Diagnoses Dyspnea on exertion Procedures SPIROMETRY - BASELINE AND POST DILATOR BRNCDILAT RSPSE SPMTRY PRE&POST-BRNCDILAT ADMN Nicole Kenny, [employer].[facility] [address] [place] [address] [facility] [place] [address] [place] [address] Referral ID Status Reason Start Date Expiration Date V isits Requested Visits Authorized [id number] Closed Auto-Generate d Referral 03/13/2022 04/12/2023 1 1 Reason Comments New Patient Shortness of Breath dyspnea on exertion Reason Onset Date Comments Refill Request 06/14/2022 Reason Comments Orders Reason Comments Appointment Reason Onset Date Comments Refill Request 07/20/2022 Reason Comments Follow Up Specialty Diagnoses / Procedures Referred By Contac t Referred To Contact Pulmonary and Critical Care Medicine Diagnoses Dyspnea on exertion Procedures CONSULT TO PULM/CRITICAL CARE OFFICE/OUTPATIENT [facility] 60-74 MINUTES Nicole Kenny, [employer].[facility] [address] [place] [address] Referral ID Status Reason Start Date Expiration Date V isits Requested Visits Authorized [id number] Closed PCP Requested Referral 03/13/2022 03/13/2023 1 1 Reason Comments Patient Update Reason Comments F/U 3 Month Reason Comments Mouth/Lip Problem Reason Comments Pain Mouth pain x 1 week Reason Comments Patient Question Reason Comments Established Patient Specialty Diagnoses / Procedures Referred By Contac t Referred To Contact Vascular Surgery Diagnoses PAD (peripheral artery disease) (HCC) Procedures CONSULT TO VASCULAR SURGERY OFFICE/OUTPATIENT [facility] 60-74 MINUTES Ulises Hermosillo MD [address] [place] [address] [address] [place] [id number] Referral ID Status Reason Start Date Expiration Date V isits Requested Visits Authorized [id number] Closed PCP Requested Referral 05/11/2022 05/11/2023 1 1 Reason Comments New Patient Hemoptysis Reason Comments Behavioral Health Social Work Reason Comments Shortness of Breath Sent from [facility]. 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 Was sent to [facility] without O2, patient is on 2 L NC routinely Reason Onset Date Comments Population Health Navigation Outreach 04/16/2023 Navigator Kailash amaya [facility] gap outreach Reason Comments Follow Up Blood pressure Reason Comments Follow Up 4 month f/u blood cl ots Reason Comments Results Reason Onset Date Comments Refill Request 06/10/2023 Reason Comments Medication clarification Reason Comments Future Appointment Reason Comments Medication Problem Reason Onset Date Comments Refill Request 12/23/2023 Reason Onset Date Comments Refill Request 01/24/2024 Reason Comments Radiology XR Care Teams (unrecognized sec tion and content) Lease Administration Analyst Relationship Specialty Start Date End Date Ulises Hermosillo MD [facility] [place], [place] [id number] PCP - General Internal Medicine 01/25/16 Lease Administration Analyst Relationship Specialty Start Date End Date Ulises Hermosillo MD [address] [facility] [place] [address] PCP - General Internal Medicine 01/25/16 Lease Administration Analyst Relationship Specialty Start Date End Date Ulises Hermosillo MD [address] [facility] [place] [address] PCP - General Internal Medicine 01/25/16 Lease Administration Analyst Relationship Specialty Start Date End Date Ulises Hermosillo MD [address] [facility] [address] PCP - General Internal Medicine 01/25/16 Lease Administration Analyst Relationship Specialty Start Date End Date Ulises Hermosillo MD [address] [facility] [address] PCP - General Internal Medicine 01/25/16 Lease Administration Analyst Relationship Specialty Start Date End Date Ulises Hermosillo MD [address] [facility] [address] PCP - General Internal Medicine 01/25/16 Lease Administration Analyst Relationship Specialty Start Date End Date Ulises Hermosillo MD [address] [facility] [address] PCP - General Internal Medicine 01/25/16 Lease Administration Analyst Relationship Specialty Start Date End Date Ulises Hermosillo MD [address] [facility] [address] PCP - General Internal Medicine 01/25/16 Lease Administration Analyst Relationship Specialty Start Date End Date Ulises Hermosillo MD [address] [facility] [address] PCP - General Internal Medicine 01/25/16 Lease Administration Analyst Relationship Specialty Start Date End Date Ulises Hermosillo MD [address] [facility] [address] PCP - General Internal Medicine 01/25/16 Lease Administration Analyst Relationship Specialty Start Date End Date Ulises Hermosillo MD [address] [facility] [address] PCP - General Internal Medicine 01/25/16 Lease Administration Analyst Relationship Specialty Start Date End Date Ulises Hermosillo MD [address] [facility] [address] PCP - General Internal Medicine 01/25/16 Lease Administration Analyst Relationship Specialty Start Date End Date Ulises Hermosillo MD [address] [facility] [address] PCP - General Internal Medicine 01/25/16 Lease Administration Analyst Relationship Specialty Start Date End Date Ulises Hermosillo MD [address] [facility] [address] PCP - General Internal Medicine 01/25/16 Lease Administration Analyst Relationship Specialty Start Date End Date Ulises Hermosillo MD [address] [facility] [address] PCP - General Internal Medicine 01/25/16 Lease Administration Analyst Relationship Specialty Start Date End Date Ulises Hermosillo MD [address] [facility] [address] PCP - General Internal Medicine 01/25/16 Lease Administration Analyst Relationship Specialty Start Date End Date Ulises Hermosillo MD [address] [facility] [address] PCP - General Internal Medicine 01/25/16 Lease Administration Analyst Relationship Specialty Start Date End Date Ulises Hermosillo MD [address] [facility] [address] PCP - General Internal Medicine 01/25/16 Lease Administration Analyst Relationship Specialty Start Date End Date Ulises Hermosillo MD [address] [facility] [address] PCP - General Internal Medicine 01/25/16 Lease Administration Analyst Relationship Specialty Start Date End Date Ulises Hermosillo MD [address] [place] [address] PCP - General Internal Medicine 01/25/16 Lease Administration Analyst Relationship Specialty Start Date End Date Ulises Hermosillo MD [address] [place] [address] PCP - General Internal Medicine 01/25/16 Lease Administration Analyst Relationship Specialty Start Date End Date Ulises Hermosillo MD [address] [place] [address] PCP - General Internal Medicine 01/25/16 Team Status: Active Member Role Status Dates Dr. Ulises Hermosillo MD Family Provider Active Dr. Ulises Hermosillo MD Primary Care Provider Active Team Status: Active Member Role Status Dates Dr. Ulises Hermosillo MD Primary Care Provider Active Miah Koroma MD Emergency Provider Active Dr. Linda Luque MD Attending Provider Active Team Status: Active Member Role Status Dates Dr. Ulises Hermosillo MD Primary Care Provider Active Miah Koroma MD Emergency Provider Active Dr. Linda Luque MD Admit Provider, Attending Prov ider Active Team Status: Active Member Role Status Dates Dr. Ulises Hermosillo MD Primary Care Provider Active Miah Koroma MD Emergency Provider Active Dr. Linda Luque MD Admit Provider, Other Provider Active Dr. Joel Sauer DO Attending Provider, Other Provid er Active Team Status: Active Member Role Status Dates Dr. Ulises Hermosillo MD Primary Care Provider Active Miah Koroma MD Emergency Provider Active Dr. Linda Luque MD Admit Provider, Attending Provider, Other Provider Active Dr. Joel Sauer DO Other Provider Active Team Status: Active Member Role Status Dates Dr. Ulises Hermosillo MD Primary Care Provider Active Dr. Joel Ji MD Attending Provider Active Team Status: Inactive Member Role Status Dates Dr. Ulises Hermosillo MD Primary Care Provider Active Miah Koroma MD Emergency Provider Active Dr. Linda Luque MD Admit Provider, Other Provider Active Dr. Sdidhartha Teague , DO Attending Provider Active Dr. Joel Sauer , DO Other Provider Active Lease Administration Analyst Relationship Specialty Start Date End Date Ulises Hermosillo MD [address] [facility] [address] PCP - General Internal Medicine 01/25/16 Lease Administration Analyst Relationship Specialty Start Date End Date Ulises Hermosillo MD [address] [facility] [address] PCP - General Internal Medicine 01/25/16 Lease Administration Analyst Relationship Specialty Start Date End Date Ulises Hermosillo MD [address] [facility] [address] PCP - General Internal Medicine 01/25/16 Lease Administration Analyst Relationship Specialty Start Date End Date Ulises Hermosillo MD [address] [facility] [address] PCP - General Internal Medicine 01/25/16 Lease Administration Analyst Relationship Specialty Start Date End Date Ulises Hermosillo MD [address] [facility] [address] PCP - General Internal Medicine 01/25/16 Lease Administration Analyst Relationship Specialty Start Date End Date Ulises Hermosillo MD [address] [facility] [address] PCP - General Internal Medicine 01/25/16 Lease Administration Analyst Relationship Specialty Start Date End Date Ulises Hermosillo MD [address] [facility] [address] PCP - General Internal Medicine 01/25/16 Lease Administration Analyst Relationship Specialty Start Date End Date Ulises Hermosillo MD [address] [facility] [address] PCP - General Internal Medicine 01/25/16 Lease Administration Analyst Relationship Specialty Start Date End Date Ulises Hermosillo MD [address] [facility] [address] PCP - General Internal Medicine 01/25/16 Lease Administration Analyst Relationship Specialty Start Date End Date Ulises Hermosillo MD [address] [facility] [address] PCP - General Internal Medicine 01/25/16 Lease Administration Analyst Relationship Specialty Start Date End Date Ulises Hermosillo MD [address] [facility] [address] PCP - General Internal Medicine 01/25/16 01/14/24 Lease Administration Analyst Relationship Specialty Start Date End Date Ulises Hermosillo MD [address] [facility] [address] PCP - General Internal Medicine 01/25/16 01/14/24 Lease Administration Analyst Relationship Specialty Start Date End Date Ulises Hermosillo MD [address] [facility] [address] PCP - General Internal Medicine 01/25/16 01/14/24 Gabriella Chambers, AAMIR [address] [facility] [place] [address] Primary Service Internal Medicine 02/27/18 04/26/21 Lease Administration Analyst Relationship Specialty Start Date End Date Ulises Hermosillo MD [address] [facility] [address] PCP - General Internal Medicine 01/25/16 01/14/24 Gabriella Chambers, RN [address] [place] [address] Primary Service Internal Medicine 02/27/18 04/26/21 Care Team (unrecognized sect ion and content) Personnel Name: ULISES HERMOSILLO MD Address: Address: [address] [place] [address]- Personnel Name: ULISES HERMOSILLO MD Address: Address: [address] [place] [address]- Care Team Personnel Name: ULISES HERMOSILLO MD Member Role: Primary Care Physician Address: Address: [address] [place] [address]- Name: Yolanda Gonzalez RN Position: RN Member Role: RN Name: ZINA [place] DO Position: ED Physician Address: Address: [address] [place] [address] [place] [address]- Name: BRIAN TRINIDAD DO Position: Resident Member Role: ED Physician Address: Address: [address] [place] [address] [place] [address]- Care Team Related Persons Name: MELY SERNA Address: Home [address] [place] [address] [place] Name: MELY SERNA Address: Home [address] [place] [address] [place] Name: MELY SERNA Address: Home [address] [place] [address] [place] Name: MELY SERNA Address: Home [address] [place] [address] [place] Name: MELY SERNA Address: Home [address] [place] [address] [place] Name: MELY SERNA Address: Home [address] [place] [address] [place] Name: MELY SERNA Address: Home [address] Care Team Personnel Name: ULISES HERMOSILLO MD Member Role: Primary Care Physician Address: Address: [address] [place] [address]- [place] Name: MD JOSE ROBERTO COMBS MD Position: ED Physician Member Role: ED Physician Address: Address: ANISHA SMITH [facility] [address] [place] [address]- Care Team Related Persons Name: SERNAMELY Address: Home [address] [place] [address] [place] Name: MELY SERNA Address: Home [address] [place] [address] [place] Name: MELY SERNA Address: Home [address] [place] [address] [place] Name: MELY SERNA Address: Home [address] Name: CRIS SERNAFER Address: Home [address] [place] [address] [place] Name: MELY SERNA Address: Home [address] [place] [address] [place] Name: DAPHNE MELY Address: Home [address] Goals (unrecognized section and content) Goals may be documented in a n alternate section Ordered Prescriptions (unrec ognized section and content) Prescription Sig Dispensed Refills Start Date End Da te albuterol sulfate HFA (VENTOLIN HFA) 108 (90 Base) MCG/ACT inhaler Inhale 2 puffs into the lungs 4 times daily as needed for Wheezing 18 g 0 01/07/2023 Scheduled Active and Recently Administ ered Medications (unrecognized section and content) Medication Order 01/05/2023 01/06/2023 01/07/2023 ipratropium-albuterol (DUONEB) nebulizer solution 1 ampule (COMPLETED) 1 ampule, Inhalation, ONCE, 1 dose, On Sat01/07/23 at 1800, Initiate RT Bronchodilator Protocol: No 1820 (Given - Provid er: Suzy Corbin RCP) magnesium sulfate 2000 mg in 50 mL IVPB premix (COMPLETED) 2,000 mg, IntraVENous, at 25 mL/hr, Administer over 2 Hours, ONCE, On Sat01/07/23 at 1800, For 1 dose, Recommended infusion rate not to exceed 1,000 mg (milligrams) per hour. 1840 (New Bag - Prov ider: Grace Bean RN)1905 (Stopped - Provider: Grace Bean RN) methylPREDNISolone sodium (SOLU-MEDROL) injection 125 mg 125 mg, IntraVENous, DAILY, First dose on Sat01/07/23 at 1800 1834 (Given - Provid er: Grace Bean RN) FOR RECORDS PERTAINING TO PATIENTS WHO ARE OR HAVE BEEN ENROLLED IN A CHEMICAL DEPENDENCY/SUBSTANCEABUSE PROGRAM, SOME INFORMATION MAY BE OMITTED. This clinical summary was aggregated from multiple sources. Caution should be exercised in using it in the provision of clinical care. This summary normalizes information from multiple sources, and as a consequence, information in this document may materially change the coding, format and clinical context of patient data. In addition, data may be omitted in some cases. CLINICAL DECISIONS SHOULD BE BASED ON THE PRIMARY CLINICAL RECORDS. [facility]. provides no warranty or guarantee of the accuracy or completeness of information in this document.
[2025-10-09 03:30] LABS: Troponin T High Sens 2 HR 20 ng/L (<=14)
[2025-10-09 04:10] LABS: Differential Comment SCANNED
== END 2025-10-09 04:46 | disposition home or self-care (01) ==
PROVIDERS: Emergency Provider Specialist/Technologist Athletic Trainer; Visit Provider Specialist/Technologist Athletic Trainer
DX: R25.2 Cramp and spasm (principal); F03.90 Unspecified dementia, unspecified severity, without behavioral disturbance, psychotic disturbance, mood disturbance, and anxiety; J44.9 Chronic obstructive pulmonary disease, unspecified; R07.89 Other chest pain; R79.89 Other specified abnormal findings of blood chemistry; I25.10 Atherosclerotic heart disease of native coronary artery without angina pectoris; I10 Essential (primary) hypertension; F17.210 Nicotine dependence, cigarettes, uncomplicated; Z79.899 Other long term (current) drug therapy
CPT/HCPCS: 71045; 80048; 82550; 83880; 84484; 85025; 93005; 96361; 96372; 96374; 99284; A4216

== ENCOUNTER 2025-10-16 01:30 | Emergency (ER) | payer MEDICARE, MEDICAID, SELFPAY ==
[2025-10-16 01:31] VITALS: BP 100/81; PULSE 98; RESP 19; TEMP 36.6; O2SAT 95; O2SAT 98; BMI 28.2
--- NOTE | 2025-10-16 01:47 | ED.RN ---
Ava RN in room to start IV. Pt began screaming at staff, cussing, throwing things at staff. Pt yelling about staff at halfway. Pt refusing all care. Dr. Simpson to bedside. Security and police at bedside. Pt cussing at doctor and screaming. Pt requesting to be D/C.
--- OUTSIDE RECORDS SUMMARY | 2025-10-16 02:00 | XMS RPT_ITS | CCD ---
Author Organization [facility] Care Team Providers Care Telephone Advice Nurse Name Role Phone PROVIDER, UNKNOWN Unavailable Unavailable No, PCP Unavailable Unavailable Qasim Martinez Unavailable Ulises Caruso MD Primary Care Provider DR ULISES HERMOSILLO MD Primary Care Physician [phone] Ulises Hermosillo MD Primary Care Provider ULISES HERMOSILLO Primary Care Unavailable TRACY RAMIRES Referring Unavailable ULISES HERMOSILLO Primary Care Unavailable TRACY RAMIRES E Referring Unavailable ULISES HERMOSILLO Primary Care Unavailable PROVIDER, UNKNOWN Referring Unavailable ULISES HERMOSILLO Primary Care Unavailable Ulises Hermosillo MD Primary Care Provider [phone] EMMANUEL KILLIAN Attending Unavailable MODESTA CASTILLO., DR. [...] DO, EMMA M Primary Care Unavailable SOSA MONTAGUESUPERVISOR MOLD YARD, ELLEN Attending Unavailab lesly FANG MD, DR [...] Facility (1 source) PHENobarbital Drug Allergy 01-05-2023 [facility] (1 source) PHENobarbital Drug Allergy 01-05-2023 [facility] Repository Medications Current Medications Medication Drug Class(es) Dates Sig (Normalized) Sig (Original) albuterol 0.21 mg/ml inhalation solution (20 sources) beta2-Adrenergic Agonist Start: 01-11-2025 take 1 dose by inhalation four times daily albuterol 0.63 mg/3 mL (0.021%) inhalation solution Dose : 0.63 mg = 3 mL, Inhalation, QID, # 90 mL, 1 Refill(s), Pharmacy: [facility]/pharmacy #[id number], 167.6, cm, 01/11/25 11:11:00 EST, Height, [...] wheezing, # 18 gram(s), 11 Refill(s), Pharmacy: [facility]/pharmacy #[id number], COPD with chronic bronchitis, 165.1, cm, 03/04/25 [...] wheezing, # 18 gram(s), 11 Refill(s), Pharmacy: [facility]/pharmacy #[id number], COPD with chronic bronchitis, 165.1, cm, [...] qDay, # 30 tab(s), 11 Refill(s), Pharmacy: [facility]/pharmacy #[id number], 165, cm, 11/30/24 9:43:00 EST, Height, [...] qDay, # 90 tab(s), 3 Refill(s), Pharmacy: [facility]/pharmacy #[id number], 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, 162.5, cm, 10/23/24 13:20:00 EST, Height, kg, 10/23/24 13:20:00 EST, Dosing Weight Start Date: 10/23/24 Status: Ordered Medication Dispense Status: Completed Quantity: 90.0 Unit: tab(s) Total Allowed Fills: 4 Fills Dispensed: 0 Indications: Presence of coronary angioplasty implant and graft; Atherosclerotic heart disease of [place] coronary artery without angina pectoris; Start: 05-02-2022 [...] TID, # 90 tab(s), 0 Refill(s), Pharmacy: [facility]/pharmacy #[id number], 165.1, cm, 03/04/25 7:59:00 EDT, Height, [...] cap(s), 0 Refill(s), 05/08/22 11:02:00 EDT, [id number], 165.1, cm, 05/02/22 9:53:00 EDT, Height, 60 Start Date: 05/05/22 Stop Date: 05/08/22 Status: Ordered clopidogrel 75 mg oral tablet (20 sources) P2Y12 Platelet Inhibitor Start: 10-23-2024 clopi dogrel 75 mg oral tablet Dose : 75 mg = 1 tab(s), Oral, Daily, # 90 tab(s), 3 Refill(s), Pharmacy: [facility]/pharmacy #[id number], 162.5, cm, 10/23/24 13:20:00 EST, Height, [...] Comment on above: Take 1 tablet by [facility] once daily. doxycycline hyclate 100 mg oral [...] qAM, # 30 tab(s), 0 Refill(s), Pharmacy: [facility], 165.1, cm, 06/12/25 19:25:00 EDT, Height, [...] take 1 puff(s) by inhalation once daily aoljxkrfwru-kvsyiacop-rsfhzpgl (TRELEGY ELLIPTA) 200-62.5-25 mcg inhalation powder Inhale 1 Puff as instructed once daily. 60 Each 11/26/2022 12/26/2022 Active Start: 07-23-2022 End: 11-26-2022 take 1 puff(s) by inhalation once daily pzggefjhzio-utnijwnfl-elpzxfws (TRELEGY ELLIPTA) 200-62.5-25 mcg inhalation powder Inhale 1 Puff as instructed once daily. 60 Each 07/23/2022 11/26/2022 Discontinued Start: 07-23-2022 take 1 puff(s) by inhalation once daily lmaqvdtmdrw-krbovpetp-nkkionyj (TRELEGY ELLIPTA) 200-62.5-25 mcg inhalation powder Inhale 1 Puff as instructed once daily. 60 Each 07/23/2022 Active Start: 07-23-2022 End: 08-22-2022 take 1 puff(s) by inhalation once daily ztdjxfkxgpf-fuqclmrdd-rmtnuryc (TRELEGY ELLIPTA) 200-62.5-25 mcg inhalation powder Inhale 1 Puff as instructed once daily. 60 Each 07/23/2022 08/22/2022 Active Start: 06-06-2022 End: 07-20-2022 take 1 puff(s) by inhalation once daily zbxwqrjrgxw-teyxpgopn-bcygxrtn (TRELEGY ELLIPTA) 200-62.5-25 mcg inhalation powder Inhale 1 Puff as instructed once daily. 60 Each 06/06/2022 07/20/2022 Discontinued Start: 06-06-2022 take 1 puff(s) by inhalation once daily bszdeqduxmz-jwqoaaitn-jhyzyvwg (TRELEGY ELLIPTA) 200-62.5-25 mcg inhalation powder Inhale 1 Puff as instructed once daily. 60 Each 06/06/2022 Active Start: 06-06-2022 End: 07-06-2022 take 1 puff(s) by inhalation once daily cjjxxvnbzts-pptosidis-gwkhyxbu (TRELEGY ELLIPTA) 200-62.5-25 mcg inhalation powder Inhale 1 Puff as instructed once daily. 60 Each 06/06/2022 07/06/2022 Active Comment on above: Inhale 1 Puff as ins tructed once daily. furosemide 40 mg oral tablet (4 sources) Loop Diuretic Start: 06-15-2025 Lasix 40 mg oral tablet Dose : 40 mg = 1 tab(s), Oral, qDay, # 30 tab(s), 0 Refill(s), Pharmacy: [facility], 165.1, cm, 06/12/25 19:25:00 EDT, Height, [...] qDay, # 90 cap(s), 3 Refill(s), Pharmacy: [facility]/pharmacy #[id number], GERD (gastroesophageal reflux disease), 162.5, cm, 10/23/24 [...] End: 03-14-2025 prednisone 10mg tab (TAPER) Taper 34-31-27-78-08-52-10-5 mg x 1 day until gone, Oral, qAM, # 18 tab(s), 0 Refill(s), Pharmacy: [facility]/pharmacy #[id number], 165.1, cm, 03/04/25 7:59:00 EDT, Height, [...] tab(s), 0 Refill(s), 05/08/22 11:01:00 EDT, Pharmacy: [facility]/pharmacy #[id number], 165.1, cm, 05/02/22 9:53:00 EDT, Height Start Date: 05/05/22 Stop Date: 05/08/22 Status: Ordered Comment on above: Take two daily for 5 days then one daily for 10 days QUEtiapine 25 mg oral tablet (2 sources) Atypical Antipsychotic Start: 06-15-2025 Seroquel 25 mg oral tablet Dose : 25 mg = 1 tab(s), Oral, qHS, # 30 tab(s), 0 Refill(s), Pharmacy: [facility]/pharmacy #[id number], 165.1, cm, 06/12/25 19:25:00 EDT, Height, [...] qDay, # 30 tab(s), 11 Refill(s), Pharmacy: [facility]/pharmacy #[id number], 165, cm, 11/30/24 9:43:00 EST, Height, [...] BID, # 180 tab(s), 3 Refill(s), Pharmacy: [facility], 165.1, cm, 06/12/25 19:25:00 EDT, Height, kg, 06/12/25 19:25:00 EDT, Dosing Weight Start Date: 06/15/25 Status: Ordered Medication Dispense Status: Completed Quantity: 180.0 Unit: tab(s) Total Allowed Fills: 4 Fills Dispensed: 0 Start: 01-29-2025 take 1 tablet by sukumar th twice daily Entresto 24 mg-26 mg oral tablet Dose = 1 tab(s), Oral, BID, # 180 tab(s), 3 Refill(s), Pharmacy: [facility]/pharmacy #[id number], 162.5, cm, 01/21/25 13:39:00 EDT, Height, kg, 01/21/25 13:39:00 EDT, Dosing Weight Start Date: 01/29/25 Status: Ordered Quantity: 180.0 Unit: tab(s) Repeat number: 4 Symbicort 160 mcg-4.5 mcg/inh Inhaler (3 sources) Start: 05-05-2022 take 1 dose by inhalation twice daily Symbicort 160 mcg-4.5 mcg/inh Inhaler Dose = 2 puff(s), Inhalation, BID, # 10.2 gram(s), 0 Refill(s), Pharmacy: [facility]/pharmacy #[id number], 165.1, cm, 05/02/22 9:53:00 EDT, Height Start Date: 05/05/22 Status: Ordered traZODone hydrochloride 100 mg oral tablet (20 sources) Serotonin Reuptake Inhibitor Start: 10-23-2024 traZODone 100 mg oral tablet Dose : 100 mg = 1 tab(s), Oral, qHS, # 90 tab(s), 3 Refill(s), Pharmacy: [facility]/pharmacy #[id number], Psychophysiologic insomnia, 162.5, cm, 10/23/24 13:20:00 [...] day, # 60 EA, 5 Refill(s), Pharmacy: [facility]/pharmacy #[id number], 162.5, cm, 01/21/25 13:39:00 EDT, Height, [...] day, # 60 EA, 5 Refill(s), Pharmacy: [facility]/pharmacy #[id number], 162.5, cm, 01/21/25 13:39:00 EDT, Height, [...] Discontinued Start: 07-29-2017 take 1 capsule by [facility] three times daily as needed Hydroxyzine Pamoate (Vistaril) 50 mg capsule Active 50 MG PO 3 TIMES DAILY NEEDED July 28, 2017 11:00pm Comment on above: Take 1 capsule by [facility] three times daily as needed for [...] release), # 30 tab(s), 11 Refill(s), Pharmacy: [facility], 165.1, cm, 06/12/25 19:25:00 EDT, Height, [...] release), # 30 tab(s), 11 Refill(s), Pharmacy: [facility]/pharmacy #[id number], 165, cm, 11/30/24 9:43:00 EST, Height, kg, 11/30/24 9:43:00 EST, Dosing Weight Start Date: 11/30/24 Status: Ordered Quantity: 30.0 Unit: tab(s) Repeat number: 12 Start: 02-01-2017 End: 09-27-2021 take 1 tablet by mouth twice daily metoprolol tartrate, short acting, (LOPRESSOR) 25 mg tablet Indications: Essential hypertension Take 1 tablet by mouth twice daily. 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) drug therapy] Onset: 03-04-2025 Episodic Other aftercare (1 source) Encounter for therapeutic drug level monitoring; Translations: [Encounter for therapeutic drug level monitoring] Onset: 03-04-2025 Episodic Other aftercare (1 source) remote computer terminal operator (current) use of antithrombotics/antip latelets; Translations: [remote computer terminal operator (current) use of antithrombotics/antip latelets] Onset: 03-04-2025 Episodic Other aftercare (1 source) prison (current) use of aspirin; Translations: [remote computer terminal operator (current) use of aspirin] Onset: 03-04-2025 Episodic Other aftercare (1 source) prison (current) use of inhaled steroids; Translations: [prison (current) use of inhaled steroids] Onset: 03-04-2025 [...] [Ratio] 17.0 % High 11.6-14.6 [facility] Comment on above: Order Comment: 108 Performed By: #### L [id number], L500.4050, L100.0500, L500.4100, L501.9985, L501.9520 #### [facility] [address] [place], [address] Hematocrit (Bld) [Volume fraction] 36.2 % Low 37-47 [facility] Comment on above: Order Comment: 108 Performed By: #### L [id number], [id number], L100.0500, L500.4100, L501.9985, L501.9520 #### [facility] [address] [place], [address] Hemoglobin (Bld) [Mass/Vol] 11.5 g/dL Low 12.0-15.0 [facility] Comment on above: Order Comment: 108 Performed By: #### L [id number], [id number], L100.0500, L500.4100, L501.9985, L501.9520 #### [facility] [address] [place], [address] MCH (RBC) [Entitic mass] 29.3 pg Normal 27.0-32.0 [facility] Comment on above: Order Comment: 108 Performed By: #### L [id number], [id number], L100.0500, L500.4100, L501.9985, L501.9520 #### [facility] [address] [place], [address] MCHC (RBC) [Mass/Vol] 31.8 g/dL Low 32-36 [facility] Comment on above: Order Comment: 108 Performed By: #### L [id number], [id number], L100.0500, L500.4100, L501.9985, L501.9520 #### [facility] [address] [place], [address] MCV (RBC) [Entitic vol] 92.3 fL Normal 81-99 [facility] Comment on above: Order Comment: 108 Performed By: #### L [id number], [id number], L100.0500, L500.4100, L501.9985, L501.9520 #### [facility] [address] [place], [address] Platelet mean volume (Bld) [Entitic vol] 10.8 fL Normal 6.2-12.0 [facility] Comment on above: Order Comment: 108 Performed By: #### L [id number], [id number], L100.0500, L500.4100, L501.9985, L501.9520 #### [facility] [address] [place], [address] Platelets (Bld) [#/Vol] 385 10*3/uL Normal 150-450 [facility] Comment on above: Order Comment: 108 Performed By: #### L [id number], [id number], L100.0500, L500.4100, L501.9985, L501.9520 #### [facility] [address] [place], [address] RBC (Bld) [#/Vol] 3.92 10*6/uL Low 4.2-5.4 [facility] Comment on above: Order Comment: 108 Performed By: #### L [id number], [id number], L100.0500, L500.4100, L501.9985, L501.9520 #### [facility] [address] [place], [address] RDW SD 57.4 fl High 35.1-43.9 [facility] Comment on above: Order Comment: 108 Performed By: #### L [id number], [id number], L100.0500, L500.4100, L501.9985, L501.9520 #### [facility] [address], [address] WBC (Bld) [#/Vol] 6.5 10*3/uL Normal 4.4-11.0 [facility] Comment on above: Order Comment: 108 Performed By: #### L [id number], [id number], L100.0500, L500.4100, L501.9985, L501.9520 #### [facility] [address] [place], [address] Comprehensive Metabolic Prof ilon 07-13-2025 Albumin [Mass/Vol] 3.5 g/dL Normal 3.4-4.8 [facility] Comment on above: Order Comment: 108 Performed By: #### L [id number], L500.4050, L100.0500, L500.4100, L501.9985, L501.9520 #### [facility] [address], [address] Albumin/Globulin [Mass ratio] 1.2 {ratio} Normal 0.9-2.4 [facility] Comment on above: Order Comment: 108 Performed By: #### L [id number], L500.4050, L100.0500, L500.4100, L501.9985, L501.9520 #### [facility] [address] [place], [address] ALK PHOS 62 U/L Normal 35-104 [facility] Comment on above: Order Comment: 108 Performed By: #### L [id number], L500.4050, L100.0500, L500.4100, L501.9985, L501.9520 #### [facility] [address] [place], [address] ALT [Catalytic activity/Vol] U/L Normal <=34 [facility] Comment on above: Order Comment: 108 Performed By: #### L [id number], L500.4050, L100.0500, L500.4100, L501.9985, L501.9520 #### [facility] [address] [place], [address] AST [Catalytic activity/Vol] 17 U/L Normal <=31 [facility] Comment on above: Order Comment: 108 Performed By: #### L [id number], L500.4050, L100.0500, L500.4100, L501.9985, L501.9520 #### [facility] [address] [place], [address] Bilirubin [Mass/Vol] 0.17 mg/dL Normal 0.00-1.30 [facility] Comment on above: Order Comment: 108 Performed By: #### L [id number], L500.4050, L100.0500, L500.4100, L501.9985, L501.9520 #### [facility] [address] [place], [address] BUN/CRE 31.1 RATIO High 10-20 [facility] Comment on above: Order Comment: 108 Performed By: #### L 501.9310, L500.4050, L100.0500, L500.4100, L501.9985, L501.9520 #### [facility] [address] [place], [address] Calcium [Mass/Vol] 9.1 mg/dL Normal 7.6-11.0 [facility] Comment on above: Order Comment: 108 Performed By: #### L [id number], L500.4050, L100.0500, L500.4100, L501.9985, L501.9520 #### [facility] [address] [place], [address] Chloride [Moles/Vol] 103 mmol/L Normal 98-108 [facility] Comment on above: Order Comment: 108 Performed By: #### L [id number], L500.4050, L100.0500, L500.4100, L501.9985, L501.9520 #### [facility] [address] [place], [address] CO2 [Moles/Vol] 25.7 mmol/L Normal 21.0-32.0 [facility] Comment on above: Order Comment: 108 Performed By: #### L 501.9310, L500.4050, L100.0500, L500.4100, L501.9985, L501.9520 #### [facility] [address] [place], [address] Creatinine [Mass/Vol] 0.85 mg/dL Normal 0.70-1.20 [facility] Comment on above: Order Comment: 108 Performed By: #### L 501.9310, L500.4050, L100.0500, L500.4100, L501.9985, L501.9520 #### [facility] [address] [place], [address] GAP 9 Normal 5-15 [facility] Comment on above: Order Comment: 108 Performed By: #### L 501.9310, L500.4050, L100.0500, L500.4100, L501.9985, L501.9520 #### [facility] [address] [place], [address] GFR/1.73 sq M.predicted among non-blacks MDRD (S/P/Bld) [Vol rate/Area] 74 mL/min/{1.73_m2} Normal >60 [facility] Comment on above: Order Comment: 108 Result Comment: mL/m in/1.73m2 CKD-EPI Creatinine Equation (2020) Performed By: #### L 501.9310, L500.4050, L100.0500, L500.4100, L501.9985, L501.9520 #### [facility] [address] [place], [address] Globulin (S) [Mass/Vol] 3.0 g/dL Normal 2.2-4.2 [facility] Comment on above: Order Comment: 108 Performed By: #### L 501.9310, L500.4050, L100.0500, L500.4100, L501.9985, L501.9520 #### [facility] [address] [place], [address] Glucose [Mass/Vol] 98 mg/dL Normal 70-99 [facility] Comment on above: Order Comment: 108 Performed By: #### L 501.9310, L500.4050, L100.0500, L500.4100, L501.9985, L501.9520 #### [facility] [address] [place], [address] Potassium [Moles/Vol] 4.5 mmol/L Normal 3.3-5.1 [facility] Comment on above: Order Comment: 108 Performed By: #### L 501.9310, L500.4050, L100.0500, L500.4100, L501.9985, L501.9520 #### [facility] [address] [place], [address] Sodium [Moles/Vol] 138 mmol/L Normal 133-145 [facility] Comment on above: Order Comment: 108 Performed By: #### L 501.9310, L500.4050, L100.0500, L500.4100, L501.9985, L501.9520 #### [facility] [address] [place], [address] T PROT 6.4 g/dL Normal 5.9-8.4 [facility] Comment on above: Order Comment: 108 Performed By: #### L 501.9310, L500.4050, L100.0500, L500.4100, L501.9985, L501.9520 #### [facility] [address] [place], [address] Urea nitrogen [Mass/Vol] 27 mg/dL High 4-19 [facility] Comment on above: Order Comment: 108 Performed By: #### L 501.9310, L500.4050, L100.0500, L500.4100, L501.9985, L501.9520 #### [facility] [address] [place], [address] Hemoglobin A1con 07-13-2025 HbA1c (Bld) [Mass fraction] 5.7 % Normal <=5.6 [facility] Comment on above: Order Comment: 108 Result Comment: Norm al < 5.7 % Prediabetic 5.7 - 6.4 % Diabetic >or= 6.5 % Please note range changes. Performed By: #### L 501.9310, L500.4050, L100.0500, L500.4100, L501.9985, L501.9520 #### [facility] [address] [place], [address] Lipid Profileon 07-13-2025 CHOL:HDL 2.44 Normal [facility] Comment on above: Order Comment: 108 Performed By: #### L 501.9310, L500.4050, L100.0500, L500.4100, L501.9985, L501.9520 #### [facility] [address] [place], [address] Cholesterol [Mass/Vol] 127 mg/dL Normal <=200 [facility] Comment on above: Order Comment: 108 Result Comment: Chol esterol level, Desirable <200 mg/dL Borderline high cholesterol 200-239 mg/dL High cholesterol >=240 mg/dL Recommendations of the NCEP Adult Treatment Panel for the following risk-cutoff thresholds for the [place] population. Performed By: #### L 501.9310, L500.4050, L100.0500, L500.4100, L501.9985, L501.9520 #### [facility] [address] [place], [address] Cholesterol in HDL [Mass/Vol] 52 mg/dL Normal [facility] Comment on above: Order Comment: 108 Result Comment: [place] onal Cholesterol Education Program (NCEP) guidelines: <40 mg/dL: Low HDL-cholesterol (major risk factor for CHD) >= 60 mg/dL: High HDL-cholesterol (negative risk factor for CHD) HDL-cholesterol is affected by a number of factors, e.g. smoking, exercise, hormones, sex and age. Performed By: #### L 501.9310, L500.4050, L100.0500, L500.4100, L501.9985, L501.9520 #### [facility] [address] [place], [address] Cholesterol in LDL [Mass/Vol] 52 mg/dL Normal [facility] Comment on above: Order Comment: 108 Result Comment: Bord emqolz=256-023 mg/dL Higher Wyzz=254 mg/dL or greater Friedwald Equation for LDL-C Performed By: #### L 501.9310, L500.4050, L100.0500, L500.4100, L501.9985, L501.9520 #### [facility] [address] [place], [address] Cholesterol in VLDL [Mass/Vol] 23 mg/dL Normal 5-40 [facility] Comment on above: Order Comment: 108 Performed By: #### L [id number], L500.4050, L100.0500, L500.4100, L501.9985, L501.9520 #### [facility] [address] [place], [place], [id number] Triglyceride [Mass/Vol] 113 mg/dL Normal [facility] Comment on above: Order Comment: 108 Result Comment: The drugs N-Acetylcysteine and Metamizole may falsely depress this assay. Normal range: <150 mg/dL Borderline High: 150-199 mg/dL High: 200-499 mg/dL Very High: >500 mg/dL Performed By: #### L 501.9310, L500.4050, L100.0500, L500.4100, L501.9985, L501.9520 #### [facility] [address] [place], [address] T4 Total, Thyroxinon 025 T4 [Mass/Vol] 6.1 ug/dL Normal 4.8-13.9 [facility] Comment on above: Order Comment: 108 Performed By: #### L 501.9310, L500.4050, L100.0500, L500.4100, L501.9985, L501.9520 #### [facility] [address] [place], [place], [id number] Thyroid Stim Hormone (TSH)on 07-13-2025 TSH 3.620 uIU/mL Normal 0.300-4.200 [facility] Comment on above: Order Comment: 108 Performed By: #### L 501.9310, L500.4050, L100.0500, L500.4100, L501.9985, L501.9520 #### [facility] [address] [facility] [place], [place], [id number] .Auto Diffon 07-10-2025 Basophil, Absolute 0.1 10 3/mcL Normal 0.0-0.3 [facility] Comment on above: Performed By: #### A DIFF, PBNP, TROPHS, CBC, GFR, MDW, ANEU, BMP #### [address] [address] Basophils/100 WBC (Bld) 1.1 % Normal 0.0-2.5 [facility] Comment on above: Performed By: #### A DIFF, PBNP, TROPHS, CBC, GFR, MDW, ANEU, BMP #### [address] [address] Eosinophil, Absolute 0.3 10 3/mcL Normal 0.0-0.7 [facility] Comment on above: Performed By: #### A DIFF, PBNP, TROPHS, CBC, GFR, MDW, ANEU, BMP #### [address] [address] Eosinophils/100 WBC (Bld) 3.2 % Normal 0.0-6.0 [facility] Comment on above: Performed By: #### A DIFF, PBNP, TROPHS, CBC, GFR, MDW, ANEU, BMP #### [address] [address] Lymphocyte, Absolute 2.6 10 3/mcL Normal 0.9-4.3 [facility] Comment on above: Performed By: #### A DIFF, PBNP, TROPHS, CBC, GFR, MDW, ANEU, BMP #### [address] [address] Lymphocytes/100 WBC (Bld) 31.2 % Normal 20.0-40.0 [facility] Comment on above: Performed By: #### A DIFF, PBNP, TROPHS, CBC, GFR, MDW, ANEU, BMP #### [address] [address] Monocyte, Absolute 1.2 10 3/mcL Normal 0.1-1.4 [facility] Comment on above: Performed By: #### A DIFF, PBNP, TROPHS, CBC, GFR, MDW, ANEU, BMP #### [address] [address] Monocytes/100 WBC (Bld) 13.9 % High 2.0-13.0 [facility] Comment on above: Performed By: #### A DIFF, PBNP, TROPHS, CBC, GFR, MDW, ANEU, BMP #### [address] [address] Neutrophils/100 WBC (Bld) 50.6 % Normal 50.0-75.0 [facility] Comment on above: Performed By: #### A DIFF, PBNP, TROPHS, CBC, GFR, MDW, ANEU, BMP #### [address] [place], [place] [address] .GFRon 07-10-2025 Estimated Glomerular Filtration Rate 71 ml/min/1.73sqm Normal [facility] Comment on above: Result Comment: Stages [...] TROPHS, CBC, GFR, MDW, ANEU, BMP #### [address] [address] .NEUABSon 07-10-2025 Neutrophil, Absolute 4.2 10 3/mcL Normal 2.3-8.1 [facility] Comment on above: Performed By: #### A DIFF, PBNP, TROPHS, CBC, GFR, MDW, ANEU, BMP #### [address] [place], [place] [address] CBCon 07-10-2025 Erythrocyte distribution width (RBC) [Ratio] 17.7 % High 11.5-15.5 [facility] Comment on above: Performed By: #### A DIFF, PBNP, TROPHS, CBC, GFR, MDW, ANEU, BMP #### [address] [place], [place] [address] Hematocrit (Bld) [Volume fraction] 35.3 % Normal 34.0-46.0 [facility] Comment on above: Performed By: #### A DIFF, PBNP, TROPHS, CBC, GFR, MDW, ANEU, BMP #### [address] [address] Hgb 11.4 G/dL Low 12.0-16.0 [facility] Comment on above: Performed By: #### A DIFF, PBNP, TROPHS, CBC, GFR, MDW, ANEU, BMP #### [place] [address] MCH (RBC) [Entitic mass] 29.5 pg Normal 27.0-33.0 [facility] Comment on above: Performed By: #### A DIFF, PBNP, TROPHS, CBC, GFR, MDW, ANEU, BMP #### [address] [address] MCHC 32.4 G/dL Normal 32.0-36.0 [facility] Comment on above: Performed By: #### A DIFF, PBNP, TROPHS, CBC, GFR, MDW, ANEU, BMP #### [address] [address] MCV (RBC) [Entitic vol] 91.1 fL Normal 80.0-99.0 [facility] Comment on above: Performed By: #### A DIFF, PBNP, TROPHS, CBC, GFR, MDW, ANEU, BMP #### [address] [address] Platelet 383 10 3/mcL Normal 150-450 [facility] Comment on above: Performed By: #### A DIFF, PBNP, TROPHS, CBC, GFR, MDW, ANEU, BMP #### [address] [address] Platelet mean volume (Bld) [Entitic vol] 8.4 fL Normal 6.6-10.5 [facility] Comment on above: Performed By: #### A DIFF, PBNP, TROPHS, CBC, GFR, MDW, ANEU, BMP #### [place] [id number] RBC 3.87 10 6/mcL Low 4.10-5.30 [facility] Comment on above: Performed By: #### A DIFF, PBNP, TROPHS, CBC, GFR, MDW, ANEU, BMP #### [address] [address] WBC 8.3 10 3/mcL Normal 4.5-10.8 [facility] Comment on above: Performed By: #### A DIFF, PBNP, TROPHS, CBC, GFR, MDW, ANEU, BMP #### [address] [address] CMPon 07-10-2025 ALT [Catalytic activity/Vol] 13 U/L Low 14-59 [facility] Comment on above: Performed By: #### A DIFF, PBNP, TROPHS, CBC, GFR, MDW, ANEU, BMP #### [address] [address] Albumin Level 2.7 G/dL Low 3.4-4.8 [facility] Comment on above: Performed By: #### A DIFF, PBNP, TROPHS, CBC, GFR, MDW, ANEU, BMP #### [address] [address] Albumin/Globulin [Mass ratio] 0.8 {ratio} Low 1.1-2.5 [facility] Comment on above: Performed By: #### A DIFF, PBNP, TROPHS, CBC, GFR, MDW, ANEU, BMP #### [address] [address] ALP [Catalytic activity/Vol] 72 U/L Normal 40-135 [facility] Comment on above: Performed By: #### A DIFF, PBNP, TROPHS, CBC, GFR, MDW, ANEU, BMP #### [address] [address] AST [Catalytic activity/Vol] 15 U/L Normal 10-40 [facility] Comment on above: Performed By: #### A DIFF, PBNP, TROPHS, CBC, GFR, MDW, ANEU, BMP #### [address] [address] Bili Total 0.2 mg/dL Normal 0.2-1.0 [facility] Comment on above: Result Comment: Use of this assay is not recommended for patients undergoing treatment with eltrombopag due to the potential for falsely elevated results. Performed By: #### A DIFF, PBNP, TROPHS, CBC, GFR, MDW, ANEU, BMP #### [address] [address] BUN/Creatinine Ratio 26 ratio Normal 7-27 [facility] Comment on above: Performed By: #### A DIFF, PBNP, TROPHS, CBC, GFR, MDW, ANEU, BMP #### [place] [address] Calcium [Mass/Vol] 8.6 mg/dL Normal 8.4-10.2 [facility] Comment on above: Performed By: #### A DIFF, PBNP, TROPHS, CBC, GFR, MDW, ANEU, BMP #### [address] [address] Chloride [Moles/Vol] 107 mmol/L Normal 98-107 [facility] Comment on above: Performed By: #### A DIFF, PBNP, TROPHS, CBC, GFR, MDW, ANEU, BMP #### [address] [address] CO2 [Moles/Vol] 37 mmol/L High 23-31 [facility] Comment on above: Performed By: #### A DIFF, PBNP, TROPHS, CBC, GFR, MDW, ANEU, BMP #### [address] [address] Creatinine [Mass/Vol] 0.88 mg/dL Normal 0.51-0.95 [facility] Comment on above: Performed By: #### A DIFF, PBNP, TROPHS, CBC, GFR, MDW, ANEU, BMP #### [address] [address] Electrolyte Balance 0.0 mEq/L Low 4.0-15.0 [facility] Comment on above: Performed By: #### A DIFF, PBNP, TROPHS, CBC, GFR, MDW, ANEU, BMP #### [address] [address] Globulin 3.4 G/dL Normal 2.7-4.4 [facility] Comment on above: Performed By: #### A DIFF, PBNP, TROPHS, CBC, GFR, MDW, ANEU, BMP #### [address] [address] Glucose [Mass/Vol] 111 mg/dL High 83-110 [facility] Comment on above: Performed By: #### A DIFF, PBNP, TROPHS, CBC, GFR, MDW, ANEU, BMP #### [address] [address] Potassium [Moles/Vol] 4.4 mmol/L Normal 3.5-5.1 [facility] Comment on above: Performed By: #### A DIFF, PBNP, TROPHS, CBC, GFR, MDW, ANEU, BMP #### [address] [address] Sodium [Moles/Vol] 144 mmol/L Normal 136-145 [facility] Comment on above: Performed By: #### A DIFF, PBNP, TROPHS, CBC, GFR, MDW, ANEU, BMP #### [address] [address] Total Protein 6.1 G/dL Low 6.4-8.2 [facility] Comment on above: Performed By: #### A DIFF, PBNP, TROPHS, CBC, GFR, MDW, ANEU, BMP #### [address] [address] Urea nitrogen [Mass/Vol] 23 mg/dL High 7-18 [facility] Comment on above: Performed By: #### A DIFF, PBNP, TROPHS, CBC, GFR, MDW, ANEU, BMP #### [address] [place], [place] [address] LABORATORYOrdered By: SYSTEM SYSTEM on 07-10-2025 Albumin [...] 07-10-2025 Magnesium [Mass/Vol] 2.0 mg/dL Normal 1.8-2.4 [facility] Comment on above: Performed By: #### A DIFF, PBNP, TROPHS, CBC, GFR, MDW, ANEU, BMP #### [address] [address] .Auto Diffon 07-09-2025 Basophil, Absolute 0.1 10 3/mcL Normal 0.0-0.3 [facility] Comment on above: Performed By: #### M RSAPCR #### [address] [address] #### CVFLURV #### [address] [address] Basophils/100 WBC (Bld) 0.9 % Normal 0.0-2.[address] [facility] Comment on above: Performed By: #### M RSAPCR #### [address] [address] #### CVFLURV #### [address] [address] Eosinophil, Absolute 0.1 10 3/mcL Normal 0.0-0.7 [facility] Comment on above: Performed By: #### M RSAPCR #### [place] [address] #### CVFLURV #### [address] [address] Eosinophils/100 WBC (Bld) 1.3 % Normal 0.0-6.0 [facility] Comment on above: Performed By: #### M RSAPCR #### [place] [address] #### CVFLURV #### [address] [address] Lymphocyte, Absolute 1.3 10 3/mcL Normal 0.9-4.3 [facility] Comment on above: Performed By: #### M RSAPCR #### [place] [address] #### CVFLURV #### [address] [address] Lymphocytes/100 WBC (Bld) 12.9 % Low 20.0-40.0 [facility] Comment on above: Performed By: #### M RSAPCR #### [place] [address] #### CVFLURV #### [address] [address] Monocyte, Absolute 1.1 10 3/mcL Normal 0.1-1.4 [facility] Comment on above: Performed By: #### M RSAPCR #### [place] [address] #### CVFLURV #### [address] [address] Monocytes/100 WBC (Bld) 11.1 % Normal 2.0-13.0 [facility] Comment on above: Performed By: #### M RSAPCR #### [place] [address] #### CVFLURV #### [address] [address] Neutrophils/100 WBC (Bld) 73.8 % Normal 50.0-75.0 [facility] Comment on above: Performed By: #### M RSAPCR #### [place] [address] #### CVFLURV #### [address] [address] .GFRon 07-09-2025 Estimated Glomerular Filtration Rate 93 ml/min/1.73sqm Normal [facility] Comment on above: Result Comment: Stages [...] results. Performed By: #### M RSAPCR #### [place] [address] #### CVFLURV #### [address] [address] .MDWon 07-09-2025 Monocyte Distribution Width 17.29 Normal 0.00-20.00 [facility] Comment on above: Result Comment: For ED adult patients suspected of sepsis, MDW<=20.0 does not rule out sepsis or risk of sepsis Performed By: #### M RSAPCR #### [place] [address] #### CVFLURV #### [address] [address] .NEUABSon 07-09-2025 Neutrophil, Absolute 7.3 10 3/mcL Normal 2.3-8.1 [facility] Comment on above: Performed By: #### M RSAPCR #### [place] [address] #### CVFLURV #### [address] [address] BMPon 07-09-2025 BUN/Creatinine Ratio 26 ratio Normal 7-27 [facility] Comment on above: Performed By: #### M RSAPCR #### [place] [address] #### CVFLURV #### [address] [address] Calcium [Mass/Vol] 8.7 mg/dL Normal 8.4-10.2 [facility] Comment on above: Performed By: #### M RSAPCR #### [place] [address] #### CVFLURV #### [place] [address] Chloride [Moles/Vol] 106 mmol/L Normal 98-107 [facility] Comment on above: Performed By: #### M RSAPCR #### [place] [address] #### CVFLURV #### [address] [address] CO2 [Moles/Vol] 33 mmol/L High 23-31 [facility] Comment on above: Performed By: #### M RSAPCR #### [place] [address] #### CVFLURV #### [address] [address] Creatinine [Mass/Vol] 0.70 mg/dL Normal 0.51-0.95 [facility] Comment on above: Performed By: #### M RSAPCR #### [place] [address] #### CVFLURV #### [address] [address] Electrolyte Balance 1.0 mEq/L Low 4.0-15.0 [facility] Comment on above: Performed By: #### M RSAPCR #### [place] [address] #### CVFLURV #### [address] [address] Glucose [Mass/Vol] 118 mg/dL High 83-110 [facility] Comment on above: Performed By: #### M RSAPCR #### [place] [address] #### CVFLURV #### [address] [address] Potassium [Moles/Vol] 3.8 mmol/L Normal 3.5-5.1 [facility] Comment on above: Performed By: #### M RSAPCR #### [place] [address] #### CVFLURV #### [address] [address] Sodium [Moles/Vol] 140 mmol/L Normal 136-145 [facility] Comment on above: Performed By: #### M RSAPCR #### [place] [address] #### CVFLURV #### [address] [address] Urea nitrogen [Mass/Vol] 18 mg/dL Normal 7-18 [facility] Comment on above: Performed By: #### M RSAPCR #### [place] [address] #### CVFLURV #### [address] [address] CBCon 07-09-2025 Erythrocyte distribution width (RBC) [Ratio] 17.8 % High 11.5-15.5 [facility] Comment on above: Performed By: #### M RSAPCR #### [place] [address] #### CVFLURV #### [address] [address] Hematocrit (Bld) [Volume fraction] 36.6 % Normal 34.0-46.0 [facility] Comment on above: Performed By: #### M RSAPCR #### [place] [address] #### CVFLURV #### [address] [address] Hgb 11.9 G/dL Low 12.0-16.0 [facility] Comment on above: Performed By: #### M RSAPCR #### [place] [address] #### CVFLURV #### [address] [address] MCH (RBC) [Entitic mass] 29.5 pg Normal 27.0-33.0 [facility] Comment on above: Performed By: #### M RSAPCR #### [place] [address] #### CVFLURV #### [place] [address] MCHC 32.6 G/dL Normal 32.0-36.0 [facility] Comment on above: Performed By: #### M RSAPCR #### [place] [address] #### CVFLURV #### [address] [address] MCV (RBC) [Entitic vol] 90.5 fL Normal 80.0-99.0 [facility] Comment on above: Performed By: #### M RSAPCR #### [place] [address] #### CVFLURV #### [address] [address] Platelet 406 10 3/mcL Normal 150-450 [facility] Comment on above: Performed By: #### M RSAPCR #### [place] [address] #### CVFLURV #### [place] [address] Platelet mean volume (Bld) [Entitic vol] 7.7 fL Normal 6.6-10.5 [facility] Comment on above: Performed By: #### M RSAPCR #### [place] [address] #### CVFLURV #### [place] [address] RBC 4.04 10 6/mcL Low 4.10-5.30 [facility] Comment on above: Performed By: #### M RSAPCR #### [place] [address] #### CVFLURV #### [place] [address] WBC 9.9 10 3/mcL Normal 4.5-10.8 [facility] Comment on above: Performed By: #### M RSAPCR #### [place] [address] #### CVFLURV #### [place] [address] CVFLURVon 07-09-2025 FLU A PCR Negative Normal Negative [facility] Comment on above: Performed By: #### C VFLURV #### [place] [address] FLU B PCR Negative Normal Negative [facility] Comment on above: Performed By: #### C VFLURV #### [place] [address] RSV PCR Negative Normal Negative [facility] Comment on above: Performed By: #### C VFLURV #### [place] [address] SARS-CoV-2 (COVID-19) RNA IVANA+probe Ql (Unsp spec) Negative Normal Negative [facility] Comment on above: Result Comment: Resu [...] Performed By: #### C VFLURV #### [place] [address] LABORATORYOrdered By: SYSTEM SYSTEM on 07-09-2025 Basophils [...] ng/L Male: 0-76 ng/L Testing performed on [employer] using a homogeneous sandwich chemiluminescent immunoassay based on [employer] technology. Urea nitrogen [Mass/Vol] 18 mg/dL Normal [...] Sensitivity Troponin I 18 ng/L Normal 0-51 [facility] Comment on above: Result Comment: High Sensitive Troponin I Reference Ranges: Female: 0-51 ng/L Male: 0-76 ng/L Testing performed on [employer] using a homogeneous sandwich chemiluminescent immunoassay based on [employer] technology. Performed By: #### M RSAPCR #### [address] [address] #### CVFLURV #### [facility] [address] [place], [place] [address] XR KNEE THREE VIEWS RIGHTon 07-09-2025 XR [...] 6:11:06 AM Ordering Provider: BRIAN TRINIDAD Normal [facility] .Auto Diffon 06-15-2025 Basophil, Absolute 0.1 10 3/mcL Normal 0.0-0.3 [facility] Comment on above: Performed By: #### M G, CBC, GFR, ADIFF, BMP, ANEU #### [address] [address] Basophils/100 WBC (Bld) 1.4 % Normal 0.0-2.5 [facility] Comment on above: Performed By: #### M G, CBC, GFR, ADIFF, BMP, ANEU #### [address] [address] Eosinophil, Absolute 0.2 10 3/mcL Normal 0.0-0.7 [facility] Comment on above: Performed By: #### M G, CBC, GFR, ADIFF, BMP, ANEU #### [address] [address] Eosinophils/100 WBC (Bld) 3.8 % Normal 0.0-6.0 [facility] Comment on above: Performed By: #### M G, CBC, GFR, ADIFF, BMP, ANEU #### [address] [address] Lymphocyte, Absolute 2.2 10 3/mcL Normal 0.9-4.3 [facility] Comment on above: Performed By: #### M G, CBC, GFR, ADIFF, BMP, ANEU #### [address] [address] Lymphocytes/100 WBC (Bld) 39.1 % Normal 20.0-40.0 [facility] Comment on above: Performed By: #### M G, CBC, GFR, ADIFF, BMP, ANEU #### [address] [address] Monocyte, Absolute 0.8 10 3/mcL Normal 0.1-1.4 [facility] Comment on above: Performed By: #### M G, CBC, GFR, ADIFF, BMP, ANEU #### [address] [address] Monocytes/100 WBC (Bld) 14.1 % High 2.0-13.0 [facility] Comment on above: Performed By: #### M G, CBC, GFR, ADIFF, BMP, ANEU #### [address] [address] Neutrophils/100 WBC (Bld) 41.6 % Low 50.0-75.0 [facility] Comment on above: Performed By: #### M G, CBC, GFR, ADIFF, BMP, ANEU #### [address] [address] .GFRon 06-15-2025 Estimated Glomerular Filtration Rate 69 ml/min/1.73sqm Normal [facility] Comment on above: Result Comment: [...] G, CBC, GFR, ADIFF, BMP, ANEU #### [place] [address] .NEUABSon 06-15-2025 Neutrophil, Absolute 2.3 10 3/mcL Normal 2.3-8.1 [facility] Comment on above: Performed By: #### M G, CBC, GFR, ADIFF, BMP, ANEU #### [place] [id number] BMPon 06-15-2025 BUN/Creatinine Ratio 27.8 ratio High 10.0-22.0 [facility] Comment on above: Performed By: #### M G, CBC, GFR, ADIFF, BMP, ANEU #### [place] [address] Calcium [Mass/Vol] 8.6 mg/dL Low 8.7-10.4 [facility] Comment on above: Performed By: #### M G, CBC, GFR, ADIFF, BMP, ANEU #### [place] [address] Chloride [Moles/Vol] 107 mmol/L Normal 98-110 [facility] Comment on above: Performed By: #### M G, CBC, GFR, ADIFF, BMP, ANEU #### [address] [address] CO2 [Moles/Vol] 34 mmol/L High 22-32 [facility] Comment on above: Performed By: #### M G, CBC, GFR, ADIFF, BMP, ANEU #### [address] [address] Creatinine [Mass/Vol] 0.90 mg/dL Normal 0.50-1.20 [facility] Comment on above: Result Comment: Test ing performed on [employer] analyzer using enzymatic creatinine methodology. Performed By: #### M G, CBC, GFR, ADIFF, BMP, ANEU #### [address] [address] Electrolyte Balance 5.0 mEq/L Normal 4.0-15.0 [facility] Comment on above: Performed By: #### M G, CBC, GFR, ADIFF, BMP, ANEU #### [address] [address] Glucose [Mass/Vol] 126 mg/dL High 82-115 [facility] Comment on above: Performed By: #### M G, CBC, GFR, ADIFF, BMP, ANEU #### [address] [address] Potassium [Moles/Vol] 4.1 mmol/L Normal 3.5-5.0 [facility] Comment on above: Performed By: #### M G, CBC, GFR, ADIFF, BMP, ANEU #### [address] [address] Sodium [Moles/Vol] 146 mmol/L High 136-145 [facility] Comment on above: Performed By: #### M G, CBC, GFR, ADIFF, BMP, ANEU #### [address] [address] Urea nitrogen [Mass/Vol] 25.0 mg/dL High 8.0-22.0 [facility] Comment on above: Performed By: #### M G, CBC, GFR, ADIFF, BMP, ANEU #### [address] [address] CBCon 06-15-2025 Erythrocyte distribution width (RBC) [Ratio] 17.8 % High 11.5-15.5 [facility] Comment on above: Performed By: #### M G, CBC, GFR, ADIFF, BMP, ANEU #### [place] [address] Hematocrit (Bld) [Volume fraction] 34.8 % Normal 34.0-46.0 [facility] Comment on above: Performed By: #### M G, CBC, GFR, ADIFF, BMP, ANEU #### [place] [address] Hgb 11.4 G/dL Low 12.0-16.0 [facility] Comment on above: Performed By: #### M G, CBC, GFR, ADIFF, BMP, ANEU #### [place] [address] MCH (RBC) [Entitic mass] 30.1 pg Normal 27.0-33.0 [facility] Comment on above: Performed By: #### M G, CBC, GFR, ADIFF, BMP, ANEU #### [place] [address] MCHC 32.7 G/dL Normal 32.0-36.0 [facility] Comment on above: Performed By: #### M G, CBC, GFR, ADIFF, BMP, ANEU #### [place] [address] MCV (RBC) [Entitic vol] 91.8 fL Normal 80.0-99.0 [facility] Comment on above: Performed By: #### M G, CBC, GFR, ADIFF, BMP, ANEU #### [place] [address] Platelet 346 10 3/mcL Normal 150-450 [facility] Comment on above: Performed By: #### M G, CBC, GFR, ADIFF, BMP, ANEU #### [place] [address] Platelet mean volume (Bld) [Entitic vol] 8.7 fL Normal 6.6-10.5 [facility] Comment on above: Performed By: #### M G, CBC, GFR, ADIFF, BMP, ANEU #### [place] [id number] [place] [address] RBC 3.79 10 6/mcL Low 4.10-5.30 [facility] Comment on above: Performed By: #### M G, CBC, GFR, ADIFF, BMP, ANEU #### [place] [id number] [place] [address] WBC 5.6 10 3/mcL Normal 4.5-10.8 [facility] Comment on above: Performed By: #### M G, CBC, GFR, ADIFF, BMP, ANEU #### [address] [address] LABORATORYOrdered By: SYSTEM SYSTEM on 06-15-2025 Basophils [...] above: Interpretive Data: T esting performed on [employer] analyzer using enzymatic creatinine methodology. Electrolyte Balance [...] 06-15-2025 Magnesium [Mass/Vol] 1.8 mg/dL Normal 1.6-2.4 [facility] Comment on above: Performed By: #### M G, CBC, GFR, ADIFF, BMP, ANEU #### [address] [address] .GFRon 06-14-2025 Estimated Glomerular Filtration Rate 62 ml/min/1.73sqm Normal [facility] Comment on above: Result Comment: [...] results. Performed By: #### T ARIELLE #### [address] [address] BMPon 06-14-2025 BUN/Creatinine Ratio 26.5 ratio High 10.0-22.0 [facility] Comment on above: Performed By: #### T GOMEZ #### [address] [address] Calcium [Mass/Vol] 8.1 mg/dL Low 8.7-10.4 [facility] Comment on above: Performed By: #### T GOMEZ #### [address] [address] Chloride [Moles/Vol] 104 mmol/L Normal 98-110 [facility] Comment on above: Performed By: #### T GOMEZ #### [address] [address] CO2 [Moles/Vol] 33 mmol/L High 22-32 [facility] Comment on above: Performed By: #### T GOMEZ #### [place] [id number] Creatinine [Mass/Vol] 0.98 mg/dL Normal 0.50-1.20 [facility] Comment on above: Result Comment: Test ing performed on [employer] analyzer using enzymatic creatinine methodology. Performed By: #### T GOMEZ #### [address] [address] Electrolyte Balance 8.0 mEq/L Normal 4.0-15.0 [facility] Comment on above: Performed By: #### T GOMEZ #### [address] [address] Glucose [Mass/Vol] 118 mg/dL High 82-115 [facility] Comment on above: Performed By: #### T GOMEZ #### [place] [id number] Potassium [Moles/Vol] 4.2 mmol/L Normal 3.5-5.0 [facility] Comment on above: Result Comment: Spec imen slightly hemolyzed. Performed By: #### T GOMEZ #### [place] [id number] Sodium [Moles/Vol] 145 mmol/L Normal 136-145 [facility] Comment on above: Performed By: #### T GOMEZ #### [place] [id number] Urea nitrogen [Mass/Vol] 26.0 mg/dL High 8.0-22.0 [facility] Comment on above: Performed By: #### T [facility] #### [place] [id number] LABORATORYOrdered By: SYSTEM SYSTEM on 06-14-2025 Calcium [...] above: Interpretive Data: T esting performed on [employer] analyzer using enzymatic creatinine methodology. Electrolyte Balance [...] 06-14-2025 Magnesium [Mass/Vol] 1.9 mg/dL Normal 1.6-2.4 [facility] Comment on above: Performed By: #### T GOMEZ #### [address] [address] XR CHEST 1 VIEWon 06-14-2025 XR CHEST [...] 06/14/2025 10:24:03 AM Ordering Provider: JOAN Rivero [facility] .Auto Diffon 06-13-2025 Basophil, Absolute 0.0 10 3/mcL Normal 0.0-0.3 [facility] Comment on above: Performed By: #### T GOMEZ #### [address] [address] Basophils/100 WBC (Bld) 0.4 % Normal 0.0-2.5 [facility] Comment on above: Performed By: #### T GOMEZ #### [address] [address] Eosinophil, Absolute 0.0 10 3/mcL Normal 0.0-0.7 [facility] Comment on above: Performed By: #### T GOMEZ #### [address] [address] Eosinophils/100 WBC (Bld) 0.0 % Normal 0.0-6.0 [facility] Comment on above: Performed By: #### T GOMEZ #### [facility] [address] [place] [address] Lymphocyte, Absolute 0.4 10 3/mcL Low 0.9-4.3 [facility] Comment on above: Performed By: #### T GOMEZ #### [address] [address] Lymphocytes/100 WBC (Bld) 12.3 % Low 20.0-40.0 [facility] Comment on above: Performed By: #### T GOMEZ #### [address] [address] Monocyte, Absolute 0.2 10 3/mcL Normal 0.1-1.4 [facility] Comment on above: Performed By: #### T GOMEZ #### [address] [address] Monocytes/100 WBC (Bld) 6.6 % Normal 2.0-13.0 [facility] Comment on above: Performed By: #### T GOMEZ #### [address] [address] Neutrophils/100 WBC (Bld) 80.7 % High 50.0-75.0 [facility] Comment on above: Performed By: #### T GOMEZ #### [address] [address] .GFRon 06-13-2025 Estimated Glomerular Filtration Rate 68 ml/min/1.73sqm Normal [facility] Comment on above: Result Comment: [...] results. Performed By: #### T GOMEZ #### [address] [address] .NEUABSon 06-13-2025 Neutrophil, Absolute 2.6 10 3/mcL Normal 2.3-8.1 [facility] Comment on above: Performed By: #### T GOMEZ #### [address] [address] BMPon 06-13-2025 BUN/Creatinine Ratio 18.7 ratio Normal 10.0-22.0 [facility] Comment on above: Performed By: #### T GOMEZ #### [address] [address] Calcium [Mass/Vol] 8.3 mg/dL Low 8.7-10.4 [facility] Comment on above: Performed By: #### T GOMEZ #### [address] [address] Chloride [Moles/Vol] 101 mmol/L Normal 98-110 [facility] Comment on above: Performed By: #### T GOMEZ #### [address] [address] CO2 [Moles/Vol] 34 mmol/L High 22-32 [facility] Comment on above: Performed By: #### T GOMEZ #### [address] [address] Creatinine [Mass/Vol] 0.91 mg/dL Normal 0.50-1.20 [facility] Comment on above: Result Comment: Test ing performed on [employer] analyzer using enzymatic creatinine methodology. Performed By: #### T GOMEZ #### [address] [address] Electrolyte Balance 9.0 mEq/L Normal 4.0-15.0 [facility] Comment on above: Performed By: #### T GOMEZ #### [place] [phone] Glucose [Mass/Vol] 125 mg/dL High 82-115 [facility] Comment on above: Performed By: #### T GOMEZ #### [place] [phone] Potassium [Moles/Vol] 3.6 mmol/L Normal 3.5-5.0 [facility] Comment on above: Performed By: #### T GOMEZ #### [place] [phone] Sodium [Moles/Vol] 144 mmol/L Normal 136-145 [facility] Comment on above: Performed By: #### T GOMEZ #### [place] [phone] Urea nitrogen [Mass/Vol] 17.0 mg/dL Normal 8.0-22.0 [facility] Comment on above: Performed By: #### T GOMEZ #### [place] [address] CBCon 06-13-2025 Erythrocyte distribution width (RBC) [Ratio] 17.4 % High 11.5-15.5 [facility] Comment on above: Performed By: #### T GOMEZ #### [place] [phone] Hematocrit (Bld) [Volume fraction] 37.9 % Normal 34.0-46.0 [facility] Comment on above: Performed By: #### T GOMEZ #### [place] [address] Hgb 12.3 G/dL Normal 12.0-16.0 [facility] Comment on above: Performed By: #### T GOMEZ #### [place] [phone] MCH (RBC) [Entitic mass] 29.3 pg Normal 27.0-33.0 [facility] Comment on above: Performed By: #### T GOMEZ #### [place] [phone] MCHC 32.5 G/dL Normal 32.0-36.0 [facility] Comment on above: Performed By: #### T GOMEZ #### [address] [address] MCV (RBC) [Entitic vol] 90.3 fL Normal 80.0-99.0 [facility] Comment on above: Performed By: #### T GOMEZ #### [place] [phone] Platelet 452 10 3/mcL High 150-450 [facility] Comment on above: Performed By: #### T GOMEZ #### [place] [address] Platelet mean volume (Bld) [Entitic vol] 8.7 fL Normal 6.6-10.5 [facility] Comment on above: Performed By: #### T GOMEZ #### [place] [address] RBC 4.20 10 6/mcL Normal 4.10-5.30 [facility] Comment on above: Performed By: #### T GOMEZ #### [place] [address] WBC 3.2 10 3/mcL Low 4.5-10.8 [facility] Comment on above: Performed By: #### T GOMEZ #### [place] [address] LABORATORYOrdered By: SYSTEM SYSTEM on 06-13-2025 Troponin I.cardiac DL <= 0.01 ng/mL [Mass/Vol] 17 ng/L Normal 0 - 34 ng/L ADM SS Comment on above: Interpretive Data: High Sensitive Troponin I Reference Ranges: Female: 0-34 ng/L Male: 0-54 ng/L Testing performed on [employer] analyzer using direct chemiluminescent technology. Basophils (Bld) [...] above: Interpretive Data: T esting performed on [employer] analyzer using enzymatic creatinine methodology. Electrolyte Balance [...] 06-13-2025 Magnesium [Mass/Vol] 1.8 mg/dL Normal 1.6-2.4 [facility] Comment on above: Performed By: #### T [facility] #### [address] 06-13-2025 High Sensitivity Troponin I 17 ng/L Normal 0-34 [facility] Comment on above: Result Comment: High Sensitive Troponin I Reference Ranges: Female: 0-34 ng/L Male: 0-54 ng/L Testing performed on [email or web address] IM analyzer using direct chemiluminescent technology. Performed By: #### T [facility] #### [address] [address] .Auto Diffon 06-12-2025 Basophil, Absolute 0.1 10 3/mcL Normal 0.0-0.3 [facility] Comment on above: Performed By: #### A DIFF, PBNP, TROPHS, CBC, GFR, MDW, ANEU, BMP #### [address] [address] Basophils/100 WBC (Bld) 1.0 % Normal 0.0-2.5 [facility] Comment on above: Performed By: #### A DIFF, PBNP, TROPHS, CBC, GFR, MDW, ANEU, BMP #### [address] [address] Eosinophil, Absolute 0.1 10 3/mcL Normal 0.0-0.7 [facility] Comment on above: Performed By: #### A DIFF, PBNP, TROPHS, CBC, GFR, MDW, ANEU, BMP #### [address] [address] Eosinophils/100 WBC (Bld) 1.3 % Normal 0.0-6.0 [facility] Comment on above: Performed By: #### A DIFF, PBNP, TROPHS, CBC, GFR, MDW, ANEU, BMP #### [address] [address] Lymphocyte, Absolute 2.0 10 3/mcL Normal 0.9-4.3 [facility] Comment on above: Performed By: #### A DIFF, PBNP, TROPHS, CBC, GFR, MDW, ANEU, BMP #### [address] [address] Lymphocytes/100 WBC (Bld) 25.0 % Normal 20.0-40.0 [facility] Comment on above: Performed By: #### A DIFF, PBNP, TROPHS, CBC, GFR, MDW, ANEU, BMP #### [address] [place], [place] [address] Monocyte, Absolute 0.9 10 3/mcL Normal 0.1-1.4 [facility] Comment on above: Performed By: #### A DIFF, PBNP, TROPHS, CBC, GFR, MDW, ANEU, BMP #### [address] [address] Monocytes/100 WBC (Bld) 11.3 % Normal 2.0-13.0 [facility] Comment on above: Performed By: #### A DIFF, PBNP, TROPHS, CBC, GFR, MDW, ANEU, BMP #### [address] [address] Neutrophils/100 WBC (Bld) 61.4 % Normal 50.0-75.0 [facility] Comment on above: Performed By: #### A DIFF, PBNP, TROPHS, CBC, GFR, MDW, ANEU, BMP #### [address] [address] .GFRon 06-12-2025 Estimated Glomerular Filtration Rate 87 ml/min/1.73sqm [facility] Comment on above: Result Comment: Stages of [...] the eGFR results. Performed By: #### T [facility] #### [facility] [address] [place] [address] Estimated Glomerular Filtration Rate 79 ml/min/1.73sqm Normal [facility] Comment on above: Result Comment: Stages [...] TROPHS, CBC, GFR, MDW, ANEU, BMP #### [address] [address] .MDWon 06-12-2025 Monocyte Distribution Width 17.54 Normal 0.00-20.00 [facility] Comment on above: Result Comment: For ED adult patients suspected of sepsis, MDW<=20.0 does not rule out sepsis or risk of sepsis Performed By: #### A DIFF, PBNP, TROPHS, CBC, GFR, MDW, ANEU, BMP #### [address] [address] .NEUABSon 06-12-2025 Neutrophil, Absolute 5.0 10 3/mcL Normal 2.3-8.1 [facility] Comment on above: Performed By: #### A DIFF, PBNP, TROPHS, CBC, GFR, MDW, ANEU, BMP #### [address] [address] BMPon 06-12-2025 BUN/Creatinine Ratio 16.2 ratio Normal 10.0-22.0 [facility] Comment on above: Performed By: #### T ARIELLE #### [address] [address] Calcium [Mass/Vol] 8.6 mg/dL Low 8.7-10.4 [facility] Comment on above: Performed By: #### T ARIELLE #### [address] [address] Chloride [Moles/Vol] 103 mmol/L Normal 98-110 [facility] Comment on above: Performed By: #### T GOMEZ #### [address] [address] CO2 [Moles/Vol] 30 mmol/L Normal 22-32 [facility] Comment on above: Performed By: #### T GOMEZ #### [address] [address] Creatinine [Mass/Vol] 0.74 mg/dL Normal 0.50-1.20 [facility] Comment on above: Result Comment: Test ing performed on [employer] analyzer using enzymatic creatinine methodology. Performed By: #### T GOMEZ #### [place] [phone] Electrolyte Balance 10.0 mEq/L Normal 4.0-15.0 [facility] Comment on above: Performed By: #### T GOMEZ #### [place] [phone] Glucose [Mass/Vol] 124 mg/dL High 82-115 [facility] Comment on above: Performed By: #### T GOMEZ #### [place] [phone] Potassium [Moles/Vol] 3.8 mmol/L Normal 3.5-5.0 [facility] Comment on above: Performed By: #### T GOMEZ #### [place] [phone] Sodium [Moles/Vol] 143 mmol/L Normal 136-145 [facility] Comment on above: Performed By: #### T GOMEZ #### [place] [phone] Urea nitrogen [Mass/Vol] 12.0 mg/dL Normal 8.0-22.0 [facility] Comment on above: Performed By: #### T GOMEZ #### [address] [address] CBCon 06-12-2025 Erythrocyte distribution width (RBC) [Ratio] 18.1 % High 11.5-15.5 [facility] Comment on above: Performed By: #### A DIFF, PBNP, TROPHS, CBC, GFR, MDW, ANEU, BMP #### [address] [address] Hematocrit (Bld) [Volume fraction] 44.2 % Normal 34.0-46.0 [facility] Comment on above: Performed By: #### A DIFF, PBNP, TROPHS, CBC, GFR, MDW, ANEU, BMP #### [place] [address] [place], [place] [address] Hgb 13.8 G/dL Normal 12.0-16.0 [facility] Comment on above: Performed By: #### A DIFF, PBNP, TROPHS, CBC, GFR, MDW, ANEU, BMP #### [address] [address] MCH (RBC) [Entitic mass] 29.3 pg Normal 27.0-33.0 [facility] Comment on above: Performed By: #### A DIFF, PBNP, TROPHS, CBC, GFR, MDW, ANEU, BMP #### [address] [address] MCHC 31.2 G/dL Low 32.0-36.0 [facility] Comment on above: Performed By: #### A DIFF, PBNP, TROPHS, CBC, GFR, MDW, ANEU, BMP #### [address] [address] MCV (RBC) [Entitic vol] 93.7 fL Normal 80.0-99.0 [facility] Comment on above: Performed By: #### A DIFF, PBNP, TROPHS, CBC, GFR, MDW, ANEU, BMP #### [address] [address] Platelet 455 10 3/mcL High 150-450 [facility] Comment on above: Performed By: #### A DIFF, PBNP, TROPHS, CBC, GFR, MDW, ANEU, BMP #### [address] [address] Platelet mean volume (Bld) [Entitic vol] 8.3 fL Normal 6.6-10.5 [facility] Comment on above: Performed By: #### A DIFF, PBNP, TROPHS, CBC, GFR, MDW, ANEU, BMP #### [address] [address] RBC 4.71 10 6/mcL Normal 4.10-5.30 [facility] Comment on above: Performed By: #### A DIFF, PBNP, TROPHS, CBC, GFR, MDW, ANEU, BMP #### [address] [address] WBC 8.2 10 3/mcL Normal 4.5-10.8 [facility] Comment on above: Performed By: #### A DIFF, PBNP, TROPHS, CBC, GFR, MDW, ANEU, BMP #### [address] [address] CMPon 06-12-2025 Albumin Level 3.1 G/dL Low 3.4-4.8 [facility] Comment on above: Performed By: #### A DIFF, PBNP, TROPHS, CBC, GFR, MDW, ANEU, BMP #### [address] [address] Albumin/Globulin [Mass ratio] 0.8 {ratio} Low 1.1-2.5 [facility] Comment on above: Performed By: #### A DIFF, PBNP, TROPHS, CBC, GFR, MDW, ANEU, BMP #### [address] [address] ALP [Catalytic activity/Vol] 108 U/L Normal 40-135 [facility] Comment on above: Performed By: #### A DIFF, PBNP, TROPHS, CBC, GFR, MDW, ANEU, BMP #### [address] [address] ALT [Catalytic activity/Vol] 21 U/L Normal 14-59 [facility] Comment on above: Performed By: #### A DIFF, PBNP, TROPHS, CBC, GFR, MDW, ANEU, BMP #### [address] [address] AST [Catalytic activity/Vol] 32 U/L Normal 10-40 [facility] Comment on above: Performed By: #### A DIFF, PBNP, TROPHS, CBC, GFR, MDW, ANEU, BMP #### [address] [address] Bili Total 0.4 mg/dL Normal 0.2-1.0 [facility] Comment on above: Result Comment: Use of this assay is not recommended for patients undergoing treatment with eltrombopag due to the potential for falsely elevated results. Performed By: #### A DIFF, PBNP, TROPHS, CBC, GFR, MDW, ANEU, BMP #### [place] [address] BUN/Creatinine Ratio 16 ratio Normal 7-27 [facility] Comment on above: Performed By: #### A DIFF, PBNP, TROPHS, CBC, GFR, MDW, ANEU, BMP #### [address] [address] Calcium [Mass/Vol] 8.9 mg/dL Normal 8.4-10.2 [facility] Comment on above: Performed By: #### A DIFF, PBNP, TROPHS, CBC, GFR, MDW, ANEU, BMP #### [address] [address] Chloride [Moles/Vol] 106 mmol/L Normal 98-107 [facility] Comment on above: Performed By: #### A DIFF, PBNP, TROPHS, CBC, GFR, MDW, ANEU, BMP #### [address] [address] CO2 [Moles/Vol] 28 mmol/L Normal 23-31 [facility] Comment on above: Performed By: #### A DIFF, PBNP, TROPHS, CBC, GFR, MDW, ANEU, BMP #### [address] [address] Creatinine [Mass/Vol] 0.80 mg/dL Normal 0.51-0.95 [facility] Comment on above: Performed By: #### A DIFF, PBNP, TROPHS, CBC, GFR, MDW, ANEU, BMP #### [address] [address] Electrolyte Balance 7.0 mEq/L Normal 4.0-15.0 [facility] Comment on above: Performed By: #### A DIFF, PBNP, TROPHS, CBC, GFR, MDW, ANEU, BMP #### [address] [address] Globulin 4.1 G/dL Normal 2.7-4.4 [facility] Comment on above: Performed By: #### A DIFF, PBNP, TROPHS, CBC, GFR, MDW, ANEU, BMP #### [address] [address] Glucose [Mass/Vol] 183 mg/dL High 83-110 [facility] Comment on above: Performed By: #### A DIFF, PBNP, TROPHS, CBC, GFR, MDW, ANEU, BMP #### [address] [address] Potassium [Moles/Vol] 5.1 mmol/L Normal 3.5-5.1 [facility] Comment on above: Performed By: #### A DIFF, PBNP, TROPHS, CBC, GFR, MDW, ANEU, BMP #### [address] [address] Sodium [Moles/Vol] 141 mmol/L Normal 136-145 [facility] Comment on above: Performed By: #### A DIFF, PBNP, TROPHS, CBC, GFR, MDW, ANEU, BMP #### [address] [address] Total Protein 7.2 G/dL Normal 6.4-8.2 [facility] Comment on above: Performed By: #### A DIFF, PBNP, TROPHS, CBC, GFR, MDW, ANEU, BMP #### [address] [address] Urea nitrogen [Mass/Vol] 13 mg/dL Normal 7-18 [facility] Comment on above: Performed By: #### A DIFF, PBNP, TROPHS, CBC, GFR, MDW, ANEU, BMP #### [address] [address] CVFLURVon 06-12-2025 FLU A PCR Negative Normal Negative [facility] Comment on above: Performed By: #### A DIFF, PBNP, TROPHS, CBC, GFR, MDW, ANEU, BMP #### [address] [address] FLU B PCR Negative Normal Negative [facility] Comment on above: Performed By: #### A DIFF, PBNP, TROPHS, CBC, GFR, MDW, ANEU, BMP #### [address] [address] RSV PCR Negative Normal Negative [facility] Comment on above: Performed By: #### A DIFF, PBNP, TROPHS, CBC, GFR, MDW, ANEU, BMP #### [address] [address] SARS-CoV-2 (COVID-19) RNA IVANA+probe Ql (Unsp spec) Negative Normal Negative [facility] Comment on above: Result Comment: Resu [...] TROPHS, CBC, GFR, MDW, ANEU, BMP #### [place] [address] [place], [place] [address] LABORATORYOrdered By: SYSTEM SYSTEM on 06-12-2025 Troponin I.cardiac DL <= 0.01 ng/mL [Mass/Vol] 20 ng/L Normal 0 - 34 ng/L AH ADM SS Comment on above: Interpretive Data: High Sensitive Troponin I Reference Ranges: Female: 0-34 ng/L Male: 0-54 ng/L Testing performed on [employer] IM analyzer using direct chemiluminescent technology. Natriuretic peptide.B prohormone N-Terminal IA [Mass/Vol] 8817 pg/mL High 0 - 900 pg/mL ADM SS Troponin I.cardiac DL <= 0.01 ng/mL [Mass/Vol] 22 ng/L Normal 0 - 34 ng/L AH ADM SS Comment on above: Interpretive Data: High Sensitive Troponin I Reference Ranges: Female: 0-34 ng/L Male: 0-54 ng/L Testing performed on [employer] IM analyzer using direct chemiluminescent technology. Troponin I.cardiac DL <= 0.01 ng/mL [Mass/Vol] 35 ng/L Normal 0 - 51 ng/L AO ADM SS Comment on above: Interpretive Data: H igh Sensitive Troponin I Reference Ranges: Female: 0-51 ng/L Male: 0-76 ng/L Testing performed on [employer] using a homogeneous sandwich chemiluminescent immunoassay based on [employer] technology. Albumin BCP dye [Mass/Vol] 3.1 G/dL [...] ng/L Male: 0-76 ng/L Testing performed on [employer] using a homogeneous sandwich chemiluminescent immunoassay based on [employer] technology. Urea nitrogen [Mass/Vol] 13 mg/dL Normal [...] 06-12-2025 Magnesium [Mass/Vol] 1.5 mg/dL Low 1.6-2.4 [facility] Comment on above: Performed By: #### T GOMEZ #### [facility] [address] [place] [address] PBNPon 06-12-2025 Natriuretic peptide B (Bld) [Mass/Vol] 8817 pg/mL High 0-900 [facility] Comment on above: Performed By: #### T GOMEZ #### [facility] [address] [place] [address] Natriuretic peptide B (Bld) [Mass/Vol] 9545 pg/mL High 0-125 [facility] Comment on above: Result Comment: NT-p roBNP results of less than 300 pg/mL effectively rules out acute congestive heart failure with 99% negative predictive value. Performed By: #### A DIFF, PBNP, TROPHS, CBC, GFR, MDW, ANEU, BMP #### [address] [address] [facility] High Sensitivity Troponin I 20 ng/L Normal 0-34 [facility] Comment on above: Result Comment: High Sensitive Troponin I Reference Ranges: Female: 0-34 ng/L Male: 0-54 ng/L Testing performed on [employer] IM analyzer using direct chemiluminescent technology. Performed By: #### T GOMEZ #### [place] [address] High Sensitivity Troponin I 22 ng/L Normal 0-34 [facility] Comment on above: Result Comment: High Sensitive Troponin I Reference Ranges: Female: 0-34 ng/L Male: 0-54 ng/L Testing performed on [employer] IM analyzer using direct chemiluminescent technology. Performed By: #### T GOMEZ #### [place] [address] High Sensitivity Troponin I 35 ng/L Normal 0-51 [facility] Comment on above: Result Comment: High Sensitive Troponin I Reference Ranges: Female: 0-51 ng/L Male: 0-76 ng/L Testing performed on [employer] using a homogeneous sandwich chemiluminescent immunoassay based on [employer] technology. Performed By: #### A DIFF, PBNP, TROPHS, CBC, GFR, MDW, ANEU, BMP #### [address] [address] High Sensitivity Troponin I 36 ng/L Normal 0-51 [facility] Comment on above: Result Comment: High Sensitive Troponin I Reference Ranges: Female: 0-51 ng/L Male: 0-76 ng/L Testing performed on [employer] using a homogeneous sandwich chemiluminescent immunoassay based on [employer] technology. Performed By: #### A DIFF, PBNP, TROPHS, CBC, GFR, MDW, ANEU, BMP #### [address] [address] UAon 06-12-2025 Color (U) Yellow Normal [facility] Comment on above: Performed By: #### T GOMEZ #### [place] [address] Glucose (U) [Mass/Vol] Negative Normal Negative [facility] Comment on above: Performed By: #### T GOMEZ #### [place] [id number] Ketones Ql (U) Negative Normal Neg-Trace [facility] Comment on above: Performed By: #### T GOMEZ #### [place] [address] UA Appear Clear Normal Clear [facility] Comment on above: Performed By: #### T GOMEZ #### [place] [address] UA Blood Negative Normal Neg-Trace [facility] Comment on above: Performed By: #### T GOMEZ #### [place] [address] UA Leuk Est Negative Normal Negative [facility] Comment on above: Performed By: #### T GOMEZ #### [place] [address] UA Nitrite Negative Normal Negative [facility] Comment on above: Performed By: #### T GOMEZ #### [place] [address] UA pH 5.0 Normal 5.0 - 8.0 [facility] Comment on above: Performed By: #### T GOMEZ #### [place] [address] UA Protein Negative Normal Negative [facility] Comment on above: Performed By: #### T GOMEZ #### [place] [address] UA Spec Grav <=1.005 Abnormal 1.006-1.029 [facility] Comment on above: Performed By: #### T GOMEZ #### [place] [address] UA Specimen Type Clean Catch Normal [facility] Comment on above: Performed By: #### T GOMEZ #### [place] [address] UA Urobilinogen 0.2 E.U./dL Normal 0.2-1.0 [facility] Comment on above: Performed By: #### T GOMEZ #### [facility] [address] [place] [address] Urobilinogen (U) [Mass/Vol] Negative Normal Neg-Trace [facility] Comment on above: Performed By: #### T GOMEZ #### [facility] [address] [place] [address] XR CHEST 1 VIEWon 06-12-2025 XR CHEST [...] 06/12/2025 3:52:07 PM Ordering Provider: KRYS PICKETT [facility] .GFRon 05-21-2025 Estimated Glomerular Filtration Rate 79 ml/min/1.73sqm Normal [facility] Comment on above: Result Comment: Stages [...] TROPHS, CBC, GFR, MDW, ANEU, BMP #### [address] [address] BMPon 05-21-2025 BUN/Creatinine Ratio 32 ratio High 7-27 [facility] Comment on above: Performed By: #### A DIFF, PBNP, TROPHS, CBC, GFR, MDW, ANEU, BMP #### [address] [address] Calcium [Mass/Vol] 7.9 mg/dL Low 8.4-10.2 [facility] Comment on above: Performed By: #### A DIFF, PBNP, TROPHS, CBC, GFR, MDW, ANEU, BMP #### [address] [address] Chloride [Moles/Vol] 108 mmol/L High 98-107 [facility] Comment on above: Performed By: #### A DIFF, PBNP, TROPHS, CBC, GFR, MDW, ANEU, BMP #### [address] [address] CO2 [Moles/Vol] 35 mmol/L High 23-31 [facility] Comment on above: Performed By: #### A DIFF, PBNP, TROPHS, CBC, GFR, MDW, ANEU, BMP #### [address] [address] Creatinine [Mass/Vol] 0.80 mg/dL Normal 0.51-0.95 [facility] Comment on above: Performed By: #### A DIFF, PBNP, TROPHS, CBC, GFR, MDW, ANEU, BMP #### [address] [address] Electrolyte Balance 4.0 mEq/L Normal 4.0-15.0 [facility] Comment on above: Performed By: #### A DIFF, PBNP, TROPHS, CBC, GFR, MDW, ANEU, BMP #### [address] [address] Glucose [Mass/Vol] 124 mg/dL High 83-110 [facility] Comment on above: Performed By: #### A DIFF, PBNP, TROPHS, CBC, GFR, MDW, ANEU, BMP #### [address] [address] Potassium [Moles/Vol] 3.6 mmol/L Normal 3.5-5.1 [facility] Comment on above: Performed By: #### A DIFF, PBNP, TROPHS, CBC, GFR, MDW, ANEU, BMP #### [address] [address] Sodium [Moles/Vol] 147 mmol/L High 136-145 [facility] Comment on above: Performed By: #### A DIFF, PBNP, TROPHS, CBC, GFR, MDW, ANEU, BMP #### [address] [address] Urea nitrogen [Mass/Vol] 26 mg/dL High 7-18 [facility] Comment on above: Performed By: #### A DIFF, PBNP, TROPHS, CBC, GFR, MDW, ANEU, BMP #### [address] [address] LABORATORYOrdered By: SYSTEM SYSTEM on 05-21-2025 Calcium [...] 05-21-2025 Magnesium [Mass/Vol] 2.0 mg/dL Normal 1.8-2.4 [facility] Comment on above: Performed By: #### A DIFF, PBNP, TROPHS, CBC, GFR, MDW, ANEU, BMP #### [address] [address] .Auto Diffon 05-20-2025 Basophil, Absolute 0.0 10 3/mcL Normal 0.0-0.3 [facility] Comment on above: Performed By: #### M RSAPCR #### [facility] [address] [place] [address] #### CVFLURV #### [place] [address] [place], [place] [address] Basophils/100 WBC (Bld) 0.1 % Normal 0.0-2.[address] [facility] Comment on above: Performed By: #### M RSAPCR #### [place] [address] #### CVFLURV #### [address] [address] Eosinophil, Absolute 0.0 10 3/mcL Normal 0.0-0.7 [facility] Comment on above: Performed By: #### M RSAPCR #### [place] [address] #### CVFLURV #### [address] [address] Eosinophils/100 WBC (Bld) 0.2 % Normal 0.0-6.0 [facility] Comment on above: Performed By: #### M RSAPCR #### [place] [address] #### CVFLURV #### [address] [address] Lymphocyte, Absolute 2.0 10 3/mcL Normal 0.9-4.3 [facility] Comment on above: Performed By: #### M RSAPCR #### [place] [address] #### CVFLURV #### [address] [address] Lymphocytes/100 WBC (Bld) 25.3 % Normal 20.0-40.0 [facility] Comment on above: Performed By: #### M RSAPCR #### [place] [address] #### CVFLURV #### [address] [address] Monocyte, Absolute 1.0 10 3/mcL Normal 0.1-1.4 [facility] Comment on above: Performed By: #### M RSAPCR #### [place] [address] #### CVFLURV #### [address] [address] Monocytes/100 WBC (Bld) 13.5 % High 2.0-13.0 [facility] Comment on above: Performed By: #### M RSAPCR #### [place] [address] #### CVFLURV #### [address] [address] Neutrophils/100 WBC (Bld) 60.9 % Normal 50.0-75.0 [facility] Comment on above: Performed By: #### M RSAPCR #### [place] [address] #### CVFLURV #### [address] [address] .GFRon 05-20-2025 Estimated Glomerular Filtration Rate 76 ml/min/1.73sqm Normal [facility] Comment on above: Result Comment: Stages [...] results. Performed By: #### M RSAPCR #### [place] [address] #### CVFLURV #### [address] [address] .NEUABSon 05-20-2025 Neutrophil, Absolute 4.7 10 3/mcL Normal 2.3-8.1 [facility] Comment on above: Performed By: #### M RSAPCR #### [place] [address] #### CVFLURV #### [address] [address] BMPon 05-20-2025 BUN/Creatinine Ratio 33 ratio High 7-27 [facility] Comment on above: Performed By: #### M RSAPCR #### [place] [address] #### CVFLURV #### [address] [address] Calcium [Mass/Vol] 8.0 mg/dL Low 8.4-10.2 [facility] Comment on above: Performed By: #### M RSAPCR #### [place] [address] #### CVFLURV #### [address] [address] Chloride [Moles/Vol] 104 mmol/L Normal 98-107 [facility] Comment on above: Performed By: #### M RSAPCR #### [place] [address] #### CVFLURV #### [address] [address] CO2 [Moles/Vol] 38 mmol/L High 23-31 [facility] Comment on above: Performed By: #### M RSAPCR #### [place] [address] #### CVFLURV #### [address] [address] Creatinine [Mass/Vol] 0.83 mg/dL Normal 0.51-0.95 [facility] Comment on above: Performed By: #### M RSAPCR #### [place] [address] #### CVFLURV #### [address] [address] Electrolyte Balance 0.0 mEq/L Low 4.0-15.0 [facility] Comment on above: Performed By: #### M RSAPCR #### [place] [address] #### CVFLURV #### [address] [address] Glucose [Mass/Vol] 113 mg/dL High 83-110 [facility] Comment on above: Performed By: #### M RSAPCR #### [place] [address] #### CVFLURV #### [address] [address] Potassium [Moles/Vol] 4.3 mmol/L Normal 3.5-5.1 [facility] Comment on above: Performed By: #### M RSAPCR #### [place] [address] #### CVFLURV #### [address] [address] Sodium [Moles/Vol] 142 mmol/L Normal 136-145 [facility] Comment on above: Performed By: #### M RSAPCR #### [place] [address] #### CVFLURV #### [address] [address] Urea nitrogen [Mass/Vol] 27 mg/dL High 7-18 [facility] Comment on above: Performed By: #### M RSAPCR #### [place] [address] #### CVFLURV #### [address] [address] CBCon 05-20-2025 Erythrocyte distribution width (RBC) [Ratio] 17.4 % High 11.5-15.5 [facility] Comment on above: Performed By: #### M RSAPCR #### [place] [address] #### CVFLURV #### [address] [address] Hematocrit (Bld) [Volume fraction] 39.0 % Normal 34.0-46.0 [facility] Comment on above: Performed By: #### M RSAPCR #### [place] [address] #### CVFLURV #### [address] [address] Hgb 12.7 G/dL Normal 12.0-16.0 [facility] Comment on above: Performed By: #### M RSAPCR #### [place] [address] #### CVFLURV #### [address] [address] MCH (RBC) [Entitic mass] 29.8 pg Normal 27.0-33.0 [facility] Comment on above: Performed By: #### M RSAPCR #### [place] [address] #### CVFLURV #### [place] [address] MCHC 32.5 G/dL Normal 32.0-36.0 [facility] Comment on above: Performed By: #### M RSAPCR #### [place] [address] #### CVFLURV #### [place] [address] MCV (RBC) [Entitic vol] 91.8 fL Normal 80.0-99.0 [facility] Comment on above: Performed By: #### M RSAPCR #### [place] [address] #### CVFLURV #### [address] [address] Platelet 264 10 3/mcL Normal 150-450 [facility] Comment on above: Performed By: #### M RSAPCR #### [place] [address] #### CVFLURV #### [address] [address] Platelet mean volume (Bld) [Entitic vol] 9.1 fL Normal 6.6-10.5 [facility] Comment on above: Performed By: #### M RSAPCR #### [place] [address] #### CVFLURV #### [facility] [address] [place], [place] [address] RBC 4.25 10 6/mcL Normal 4.10-5.30 [facility] Comment on above: Performed By: #### M RSAPCR #### [address] [address] #### CVFLURV #### [address] [address] WBC 7.8 10 3/mcL Normal 4.5-10.8 [facility] Comment on above: Performed By: #### M RSAPCR #### [place] [address] #### CVFLURV #### [address] [address] LABORATORYOrdered By: SYSTEM SYSTEM on 05-20-2025 Basophils [...] 05-20-2025 Magnesium [Mass/Vol] 1.9 mg/dL Normal 1.8-2.4 [facility] Comment on above: Performed By: #### M RSAPCR #### [place] [address] #### CVFLURV #### [address] [address] MYCOon 05-20-2025 Mycoplasma IgG Positive Normal [facility] Comment on above: Result Comment: INTE RPRETATION OF MYCOPLASMA IgG BY EIA: Negative: No detectable M. pneumoniae IgG antibody. Positive: Mycoplasma pneumoniae IgG antibody Detected. Equivocal: Equivocal for IgG antibodies to Mycoplasma pneumoniae. Suggest repeat testing in 10-14 days. Performed By: #### M RSAPCR #### [place] [address] #### CVFLURV #### [address] [address] .Auto Diffon 05-19-2025 Basophil, Absolute 0.0 10 3/mcL Normal 0.0-0.3 [facility] Comment on above: Performed By: #### A DIFF, PBNP, TROPHS, CBC, GFR, MDW, ANEU, BMP #### [address] [address] Basophils/100 WBC (Bld) 0.3 % Normal 0.0-2.[address] [facility] Comment on above: Performed By: #### A DIFF, PBNP, TROPHS, CBC, GFR, MDW, ANEU, BMP #### [address] [address] Eosinophil, Absolute 0.0 10 3/mcL Normal 0.0-0.7 [facility] Comment on above: Performed By: #### A DIFF, PBNP, TROPHS, CBC, GFR, MDW, ANEU, BMP #### [address] [address] Eosinophils/100 WBC (Bld) 0.2 % Normal 0.0-6.0 [facility] Comment on above: Performed By: #### A DIFF, PBNP, TROPHS, CBC, GFR, MDW, ANEU, BMP #### [address] [address] Lymphocyte, Absolute 1.8 10 3/mcL Normal 0.9-4.3 [facility] Comment on above: Performed By: #### A DIFF, PBNP, TROPHS, CBC, GFR, MDW, ANEU, BMP #### [address] [address] Lymphocytes/100 WBC (Bld) 24.9 % Normal 20.0-40.0 [facility] Comment on above: Performed By: #### A DIFF, PBNP, TROPHS, CBC, GFR, MDW, ANEU, BMP #### [address] [address] Monocyte, Absolute 1.0 10 3/mcL Normal 0.1-1.4 [facility] Comment on above: Performed By: #### A DIFF, PBNP, TROPHS, CBC, GFR, MDW, ANEU, BMP #### [address] [address] Monocytes/100 WBC (Bld) 13.5 % High 2.0-13.0 [facility] Comment on above: Performed By: #### A DIFF, PBNP, TROPHS, CBC, GFR, MDW, ANEU, BMP #### [address] [address] Neutrophils/100 WBC (Bld) 61.1 % Normal 50.0-75.0 [facility] Comment on above: Performed By: #### A DIFF, PBNP, TROPHS, CBC, GFR, MDW, ANEU, BMP #### [place] [address] [place], [place] [address] .GFRon 05-19-2025 Estimated Glomerular Filtration Rate 70 ml/min/1.73sqm Normal [facility] Comment on above: Result Comment: Stages [...] TROPHS, CBC, GFR, MDW, ANEU, BMP #### [place] [address] [place], [place] [address] .NEUABSon 05-19-2025 Neutrophil, Absolute 4.3 10 3/mcL Normal 2.3-8.1 [facility] Comment on above: Performed By: #### A DIFF, PBNP, TROPHS, CBC, GFR, MDW, ANEU, BMP #### [place] [address] [place], [place] [address] BMPon 05-19-2025 BUN/Creatinine Ratio 31 ratio High 7-27 [facility] Comment on above: Performed By: #### A DIFF, PBNP, TROPHS, CBC, GFR, MDW, ANEU, BMP #### [place] [address] [place], [place] [address] Calcium [Mass/Vol] 8.3 mg/dL Low 8.4-10.2 [facility] Comment on above: Performed By: #### A DIFF, PBNP, TROPHS, CBC, GFR, MDW, ANEU, BMP #### [address] [address] Chloride [Moles/Vol] 106 mmol/L Normal 98-107 [facility] Comment on above: Performed By: #### A DIFF, PBNP, TROPHS, CBC, GFR, MDW, ANEU, BMP #### [address] [address] CO2 [Moles/Vol] 41 mmol/L Critically abnormal 23-31 [facility] Comment on above: Performed By: #### A DIFF, PBNP, TROPHS, CBC, GFR, MDW, ANEU, BMP #### [address] [address] Creatinine [Mass/Vol] 0.89 mg/dL Normal 0.51-0.95 [facility] Comment on above: Performed By: #### A DIFF, PBNP, TROPHS, CBC, GFR, MDW, ANEU, BMP #### [address] [address] Electrolyte Balance -1.0 mEq/L Low 4.0-15.0 [facility] Comment on above: Performed By: #### A DIFF, PBNP, TROPHS, CBC, GFR, MDW, ANEU, BMP #### [address] [address] Glucose [Mass/Vol] 108 mg/dL Normal 83-110 [facility] Comment on above: Performed By: #### A DIFF, PBNP, TROPHS, CBC, GFR, MDW, ANEU, BMP #### [address] [address] Potassium [Moles/Vol] 3.9 mmol/L Normal 3.5-5.1 [facility] Comment on above: Performed By: #### A DIFF, PBNP, TROPHS, CBC, GFR, MDW, ANEU, BMP #### [address] [address] Sodium [Moles/Vol] 146 mmol/L High 136-145 [facility] Comment on above: Performed By: #### A DIFF, PBNP, TROPHS, CBC, GFR, MDW, ANEU, BMP #### [place] [address] Urea nitrogen [Mass/Vol] 28 mg/dL High 7-18 [facility] Comment on above: Performed By: #### A DIFF, PBNP, TROPHS, CBC, GFR, MDW, ANEU, BMP #### [place] [address] CBCon 05-19-2025 Erythrocyte distribution width (RBC) [Ratio] 17.8 % High 11.5-15.5 [facility] Comment on above: Performed By: #### A DIFF, PBNP, TROPHS, CBC, GFR, MDW, ANEU, BMP #### [place] [address] Hematocrit (Bld) [Volume fraction] 39.7 % Normal 34.0-46.0 [facility] Comment on above: Performed By: #### A DIFF, PBNP, TROPHS, CBC, GFR, MDW, ANEU, BMP #### [place] [address] Hgb 12.7 G/dL Normal 12.0-16.0 [facility] Comment on above: Performed By: #### A DIFF, PBNP, TROPHS, CBC, GFR, MDW, ANEU, BMP #### [place] [address] MCH (RBC) [Entitic mass] 29.3 pg Normal 27.0-33.0 [facility] Comment on above: Performed By: #### A DIFF, PBNP, TROPHS, CBC, GFR, MDW, ANEU, BMP #### [place] [address] MCHC 32.1 G/dL Normal 32.0-36.0 [facility] Comment on above: Performed By: #### A DIFF, PBNP, TROPHS, CBC, GFR, MDW, ANEU, BMP #### [address] [address] MCV (RBC) [Entitic vol] 91.5 fL Normal 80.0-99.[address] [facility] Comment on above: Performed By: #### A DIFF, PBNP, TROPHS, CBC, GFR, MDW, ANEU, BMP #### [address] [address] Platelet 261 10 3/mcL Normal 150-450 [facility] Comment on above: Performed By: #### A DIFF, PBNP, TROPHS, CBC, GFR, MDW, ANEU, BMP #### [place] [address] Platelet mean volume (Bld) [Entitic vol] 9.1 fL Normal 6.6-10.5 [facility] Comment on above: Performed By: #### A DIFF, PBNP, TROPHS, CBC, GFR, MDW, ANEU, BMP #### [place] [address] RBC 4.33 10 6/mcL Normal 4.10-5.30 [facility] Comment on above: Performed By: #### A DIFF, PBNP, TROPHS, CBC, GFR, MDW, ANEU, BMP #### [place] [address] WBC 7.0 10 3/mcL Normal 4.5-10.8 [facility] Comment on above: Performed By: #### A DIFF, PBNP, TROPHS, CBC, GFR, MDW, ANEU, BMP #### [address] [address] LABORATORYOrdered By: SYSTEM SYSTEM on 05-19-2025 Basophils [...] 05-19-2025 Magnesium [Mass/Vol] 1.9 mg/dL Normal 1.8-2.4 [facility] Comment on above: Performed By: #### A DIFF, PBNP, TROPHS, CBC, GFR, MDW, ANEU, BMP #### [address] [address] PBNPon 05-19-2025 Natriuretic peptide B (Bld) [Mass/Vol] 4502 pg/mL High 0-125 [facility] Comment on above: Result Comment: NT-p roBNP results of less than 300 pg/mL effectively rules out acute congestive heart failure with 99% negative predictive value. Performed By: #### A DIFF, PBNP, TROPHS, CBC, GFR, MDW, ANEU, BMP #### [address] [address] .Auto Diffon 05-18-2025 Basophil, Absolute 0.0 10 3/mcL Normal 0.0-0.3 [facility] Comment on above: Performed By: #### A DIFF, PBNP, TROPHS, CBC, GFR, MDW, ANEU, BMP #### [address] [address] Basophils/100 WBC (Bld) 0.2 % Normal 0.0-2.5 [facility] Comment on above: Performed By: #### A DIFF, PBNP, TROPHS, CBC, GFR, MDW, ANEU, BMP #### [address] [address] Eosinophil, Absolute 0.0 10 3/mcL Normal 0.0-0.7 [facility] Comment on above: Performed By: #### A DIFF, PBNP, TROPHS, CBC, GFR, MDW, ANEU, BMP #### [address] [address] Eosinophils/100 WBC (Bld) 0.0 % Normal 0.0-6.0 [facility] Comment on above: Performed By: #### A DIFF, PBNP, TROPHS, CBC, GFR, MDW, ANEU, BMP #### [address] [address] Lymphocyte, Absolute 0.7 10 3/mcL Low 0.9-4.3 [facility] Comment on above: Performed By: #### A DIFF, PBNP, TROPHS, CBC, GFR, MDW, ANEU, BMP #### [address] [address] Lymphocytes/100 WBC (Bld) 7.9 % Low 20.0-40.0 [facility] Comment on above: Performed By: #### A DIFF, PBNP, TROPHS, CBC, GFR, MDW, ANEU, BMP #### [place] [address] [place], [place] [address] Monocyte, Absolute 1.0 10 3/mcL Normal 0.1-1.4 [facility] Comment on above: Performed By: #### A DIFF, PBNP, TROPHS, CBC, GFR, MDW, ANEU, BMP #### [address] [address] Monocytes/100 WBC (Bld) 11.5 % Normal 2.0-13.0 [facility] Comment on above: Performed By: #### A DIFF, PBNP, TROPHS, CBC, GFR, MDW, ANEU, BMP #### [address] [address] Neutrophils/100 WBC (Bld) 80.4 % High 50.0-75.0 [facility] Comment on above: Performed By: #### A DIFF, PBNP, TROPHS, CBC, GFR, MDW, ANEU, BMP #### [address] [address] .GFRon 05-18-2025 Estimated Glomerular Filtration Rate 69 ml/min/1.73sqm Normal [facility] Comment on above: Result Comment: Stages [...] TROPHS, CBC, GFR, MDW, ANEU, BMP #### [address] [address] .NEUABSon 05-18-2025 Neutrophil, Absolute 7.0 10 3/mcL Normal 2.3-8.1 [facility] Comment on above: Performed By: #### A DIFF, PBNP, TROPHS, CBC, GFR, MDW, ANEU, BMP #### [address] [address] BMPon 05-18-2025 BUN/Creatinine Ratio 29 ratio High 7-27 [facility] Comment on above: Performed By: #### A DIFF, PBNP, TROPHS, CBC, GFR, MDW, ANEU, BMP #### [address] [address] Calcium [Mass/Vol] 8.2 mg/dL Low 8.4-10.2 [facility] Comment on above: Performed By: #### A DIFF, PBNP, TROPHS, CBC, GFR, MDW, ANEU, BMP #### [address] [address] Chloride [Moles/Vol] 106 mmol/L Normal 98-107 [facility] Comment on above: Performed By: #### A DIFF, PBNP, TROPHS, CBC, GFR, MDW, ANEU, BMP #### [address] [address] CO2 [Moles/Vol] 37 mmol/L High 23-31 [facility] Comment on above: Performed By: #### A DIFF, PBNP, TROPHS, CBC, GFR, MDW, ANEU, BMP #### [address] [address] Creatinine [Mass/Vol] 0.90 mg/dL Normal 0.51-0.95 [facility] Comment on above: Performed By: #### A DIFF, PBNP, TROPHS, CBC, GFR, MDW, ANEU, BMP #### [address] [address] Electrolyte Balance 3.0 mEq/L Low 4.0-15.0 [facility] Comment on above: Performed By: #### A DIFF, PBNP, TROPHS, CBC, GFR, MDW, ANEU, BMP #### [address] [address] Glucose [Mass/Vol] 130 mg/dL High 83-110 [facility] Comment on above: Performed By: #### A DIFF, PBNP, TROPHS, CBC, GFR, MDW, ANEU, BMP #### [address] [address] Potassium [Moles/Vol] 4.1 mmol/L Normal 3.5-5.1 [facility] Comment on above: Performed By: #### A DIFF, PBNP, TROPHS, CBC, GFR, MDW, ANEU, BMP #### [address] [address] Sodium [Moles/Vol] 146 mmol/L High 136-145 [facility] Comment on above: Performed By: #### A DIFF, PBNP, TROPHS, CBC, GFR, MDW, ANEU, BMP #### [address] [address] Urea nitrogen [Mass/Vol] 26 mg/dL High 7-18 [facility] Comment on above: Performed By: #### A DIFF, PBNP, TROPHS, CBC, GFR, MDW, ANEU, BMP #### [address] [address] CBCon 05-18-2025 Erythrocyte distribution width (RBC) [Ratio] 17.9 % High 11.5-15.5 [facility] Comment on above: Performed By: #### A DIFF, PBNP, TROPHS, CBC, GFR, MDW, ANEU, BMP #### [address] [address] Hematocrit (Bld) [Volume fraction] 37.7 % Normal 34.0-46.0 [facility] Comment on above: Performed By: #### A DIFF, PBNP, TROPHS, CBC, GFR, MDW, ANEU, BMP #### [address] [address] Hgb 12.5 G/dL Normal 12.0-16.0 [facility] Comment on above: Performed By: #### A DIFF, PBNP, TROPHS, CBC, GFR, MDW, ANEU, BMP #### [place] [address] MCH (RBC) [Entitic mass] 30.4 pg Normal 27.0-33.0 [facility] Comment on above: Performed By: #### A DIFF, PBNP, TROPHS, CBC, GFR, MDW, ANEU, BMP #### [place] [address] MCHC 33.2 G/dL Normal 32.0-36.0 [facility] Comment on above: Performed By: #### A DIFF, PBNP, TROPHS, CBC, GFR, MDW, ANEU, BMP #### [address] [address] MCV (RBC) [Entitic vol] 91.4 fL Normal 80.0-99.0 [facility] Comment on above: Performed By: #### A DIFF, PBNP, TROPHS, CBC, GFR, MDW, ANEU, BMP #### [address] [address] Platelet 275 10 3/mcL Normal 150-450 [facility] Comment on above: Performed By: #### A DIFF, PBNP, TROPHS, CBC, GFR, MDW, ANEU, BMP #### [address] [address] Platelet mean volume (Bld) [Entitic vol] 9.3 fL Normal 6.6-10.5 [facility] Comment on above: Performed By: #### A DIFF, PBNP, TROPHS, CBC, GFR, MDW, ANEU, BMP #### [place] [address] RBC 4.13 10 6/mcL Normal 4.10-5.30 [facility] Comment on above: Performed By: #### A DIFF, PBNP, TROPHS, CBC, GFR, MDW, ANEU, BMP #### [place] [address] [place], [place] [address] WBC 8.7 10 3/mcL Normal 4.5-10.8 [facility] Comment on above: Performed By: #### A DIFF, PBNP, TROPHS, CBC, GFR, MDW, ANEU, BMP #### [facility] [address] [place], [place] [address] LABORATORYOrdered By: SYSTEM SYSTEM on 05-18-2025 Basophils [...] 05-18-2025 Magnesium [Mass/Vol] 1.9 mg/dL Normal 1.8-2.4 [facility] Comment on above: Performed By: #### A DIFF, PBNP, TROPHS, CBC, GFR, MDW, ANEU, BMP #### [address] [address] MYCOon 05-18-2025 Mycoplasma IgM Negative Normal [facility] Comment on above: Result Comment: INTE RPRETATION OF MYCOPLASMA IgM: Negative: IgM to M. pneumoniae Absent, or at levels below the assay limit of detection. Positive: IgM to M. pneumoniae Present. Invalid: Test results are invalid due to invalid internal control. Assay was performed in duplicate. Repeat testing is suggested if clinically indicated. Performed By: #### M RSAPCR #### [facility] [address] [place] [id number] #### CVFLURV #### [address] [address] PBNPon 05-18-2025 Natriuretic peptide B (Bld) [Mass/Vol] 6422 pg/mL High 0-125 [facility] Comment on above: Result Comment: NT-p roBNP results of less than 300 pg/mL effectively rules out acute congestive heart failure with 99% negative predictive value. Performed By: #### A DIFF, PBNP, TROPHS, CBC, GFR, MDW, ANEU, BMP #### [address] [address] .Auto Diffon 05-17-2025 Basophil, Absolute 0.0 10 3/mcL Normal 0.0-0.3 [facility] Comment on above: Performed By: #### M RSAPCR #### [place] [address] #### CVFLURV #### [address] [address] Basophils/100 WBC (Bld) 0.3 % Normal 0.0-2.5 [facility] Comment on above: Performed By: #### M RSAPCR #### [place] [address] #### CVFLURV #### [address] [address] Eosinophil, Absolute 0.0 10 3/mcL Normal 0.0-0.7 [facility] Comment on above: Performed By: #### M RSAPCR #### [place] [address] #### CVFLURV #### [address] [address] Eosinophils/100 WBC (Bld) 0.0 % Normal 0.0-6.0 [facility] Comment on above: Performed By: #### M RSAPCR #### [place] [address] #### CVFLURV #### [address] [address] Lymphocyte, Absolute 0.3 10 3/mcL Low 0.9-4.3 [facility] Comment on above: Performed By: #### M RSAPCR #### [place] [address] #### CVFLURV #### [address] [address] Lymphocytes/100 WBC (Bld) 6.4 % Low 20.0-40.0 [facility] Comment on above: Performed By: #### M RSAPCR #### [place] [address] #### CVFLURV #### [address] [address] Monocyte, Absolute 0.1 10 3/mcL Normal 0.1-1.4 [facility] Comment on above: Performed By: #### M RSAPCR #### [place] [address] #### CVFLURV #### [address] [address] Monocytes/100 WBC (Bld) 1.5 % Low 2.0-13.0 [facility] Comment on above: Performed By: #### M RSAPCR #### [place] [address] #### CVFLURV #### [address] [address] Neutrophils/100 WBC (Bld) 91.8 % High 50.0-75.0 [facility] Comment on above: Performed By: #### M RSAPCR #### [place] [id number] #### CVFLURV #### [address] [address] .GFRon 05-17-2025 Estimated Glomerular Filtration Rate 66 ml/min/1.73sqm Normal [facility] Comment on above: Result Comment: Stages [...] results. Performed By: #### M RSAPCR #### [place] [address] #### CVFLURV #### [address] [address] .NEUABSon 05-17-2025 Neutrophil, Absolute 3.6 10 3/mcL Normal 2.3-8.1 [facility] Comment on above: Performed By: #### M RSAPCR #### [place] [address] #### CVFLURV #### [address] [address] BMPon 05-17-2025 BUN/Creatinine Ratio 17 ratio Normal 7-27 [facility] Comment on above: Performed By: #### M RSAPCR #### [place] [address] #### CVFLURV #### [address] [address] Calcium [Mass/Vol] 8.0 mg/dL Low 8.4-10.2 [facility] Comment on above: Performed By: #### M RSAPCR #### [place] [address] #### CVFLURV #### [address] [address] Chloride [Moles/Vol] 107 mmol/L Normal 98-107 [facility] Comment on above: Performed By: #### M RSAPCR #### [place] [address] #### CVFLURV #### [address] [address] CO2 [Moles/Vol] 39 mmol/L High 23-31 [facility] Comment on above: Performed By: #### M RSAPCR #### [place] [address] #### CVFLURV #### [address] [address] Creatinine [Mass/Vol] 0.93 mg/dL Normal 0.51-0.95 [facility] Comment on above: Performed By: #### M RSAPCR #### [place] [address] #### CVFLURV #### [address] [address] Electrolyte Balance 2.0 mEq/L Low 4.0-15.0 [facility] Comment on above: Performed By: #### M RSAPCR #### [place] [address] #### CVFLURV #### [address] [address] Glucose [Mass/Vol] 174 mg/dL High 83-110 [facility] Comment on above: Performed By: #### M RSAPCR #### [place] [address] #### CVFLURV #### [address] [address] Potassium [Moles/Vol] 4.6 mmol/L Normal 3.5-5.1 [facility] Comment on above: Performed By: #### M RSAPCR #### [place] [address] #### CVFLURV #### [address] [address] Sodium [Moles/Vol] 148 mmol/L High 136-145 [facility] Comment on above: Performed By: #### M RSAPCR #### [place] [address] #### CVFLURV #### [address] [address] Urea nitrogen [Mass/Vol] 16 mg/dL Normal 7-18 [facility] Comment on above: Performed By: #### M RSAPCR #### [place] [address] #### CVFLURV #### [place] [address] CBCon 05-17-2025 Erythrocyte distribution width (RBC) [Ratio] 17.8 % High 11.5-15.5 [facility] Comment on above: Performed By: #### M RSAPCR #### [place] [address] #### CVFLURV #### [place] [address] Hematocrit (Bld) [Volume fraction] 38.0 % Normal 34.0-46.0 [facility] Comment on above: Performed By: #### M RSAPCR #### [place] [address] #### CVFLURV #### [place] [address] Hgb 12.3 G/dL Normal 12.0-16.0 [facility] Comment on above: Performed By: #### M RSAPCR #### [place] [address] #### CVFLURV #### [place] [address] MCH (RBC) [Entitic mass] 29.7 pg Normal 27.0-33.0 [facility] Comment on above: Performed By: #### M RSAPCR #### [place] [address] #### CVFLURV #### [place] [address] MCHC 32.2 G/dL Normal 32.0-36.0 [facility] Comment on above: Performed By: #### M RSAPCR #### [place] [address] #### CVFLURV #### [address] [address] MCV (RBC) [Entitic vol] 92.2 fL Normal 80.0-99.[address] [facility] Comment on above: Performed By: #### M RSAPCR #### [place] [address] #### CVFLURV #### [address] [address] Platelet 257 10 3/mcL Normal 150-450 [facility] Comment on above: Performed By: #### M RSAPCR #### [place] [address] #### CVFLURV #### [address] [address] Platelet mean volume (Bld) [Entitic vol] 9.3 fL Normal 6.6-10.5 [facility] Comment on above: Performed By: #### M RSAPCR #### [place] [address] #### CVFLURV #### [address] [address] RBC 4.12 10 6/mcL Normal 4.10-5.30 [facility] Comment on above: Performed By: #### M RSAPCR #### [place] [address] #### CVFLURV #### [address] [address] WBC 4.0 10 3/mcL Low 4.5-10.8 [facility] Comment on above: Performed By: #### M RSAPCR #### [place] [address] #### CVFLURV #### [address] [address] CVFLURVon 05-17-2025 FLU A PCR Negative Normal Negative [facility] Comment on above: Performed By: #### M RSAPCR #### [place] [address] #### CVFLURV #### [address] [address] FLU B PCR Negative Normal Negative [facility] Comment on above: Performed By: #### M RSAPCR #### [address] [address] #### CVFLURV #### [address] [address] RSV PCR Negative Normal Negative [facility] Comment on above: Performed By: #### M RSAPCR #### [place] [address] #### CVFLURV #### [place] [address] SARS-CoV-2 (COVID-19) RNA IVANA+probe Ql (Unsp spec) Negative Normal Negative [facility] Comment on above: Result Comment: Resu [...] results. Performed By: #### M RSAPCR #### [place] [address] #### CVFLURV #### [place] [address] LABORATORYOrdered By: SYSTEM SYSTEM on 05-17-2025 Natriuretic [...] Comment on above: Result Comment: [place] [id number] MRSA PCR Int See Below 2 *NA* [...] 05-17-2025 Magnesium [Mass/Vol] 1.5 mg/dL Low 1.8-2.4 [facility] Comment on above: Performed By: #### M RSAPCR #### [address] [address] #### CVFLURV #### [address] [address] MRSAPCRon 05-17-2025 MRSA (PCR) Not detected Normal Not Detected [facility] Comment on above: Result Comment: [place] [id number] Performed By: #### M RSAPCR #### [address] [address] #### CVFLURV #### [address] [address] MRSA PCR Int See Below Normal [facility] Comment on above: Result Comment: Clinical [...] reproducible. Performed By: #### M RSAPCR #### [address] [address] #### CVFLURV #### [address] [address] No Panel Informationon 05-17 Legionella Urine Ag Presumptive negative for L. pneumophila serogroup 1 antigen in urine, suggesting no recent or current infection. Legionnaire's disease cannot be ruled out since other serogroups and species may also cause disease. [facility] Work Phone: Microscopic examination of blood, culture Blood Culture: No Growth at [address] [facility] Work Phone: Streptococcus Pneumoniae Urine Antig Presumptive negative for pneumococcal pneumonia, suggesting no current or recent pneumococcal infection. Infection due to Strep pneumoniae cannot be ruled out since the antigen present in the sample may be below the detection limit of the test. [facility] Work Phone: Comment on above: This test has not be en evaluated on patients taking antibiotics for greater than 24 hours or on patients who have recently completed an antibiotic regimen. The accuracy of this test has not been proven in young children. PBNPon 05-17-2025 Natriuretic peptide B (Bld) [Mass/Vol] 5616 pg/mL High 0-125 [facility] Comment on above: Result Comment: NT-p roBNP results of less than 300 pg/mL effectively rules out acute congestive heart failure with 99% negative predictive value. Performed By: #### M RSAPCR #### [place] [address] #### CVFLURV #### [address] [address] .Auto Diffon 05-16-2025 Basophil, Absolute 0.1 10 3/mcL Normal 0.0-0.3 [facility] Comment on above: Performed By: #### A DIFF, PBNP, TROPHS, CBC, GFR, MDW, ANEU, BMP #### [address] [address] Basophils/100 WBC (Bld) 2.0 % Normal 0.0-2.5 [facility] Comment on above: Performed By: #### A DIFF, PBNP, TROPHS, CBC, GFR, MDW, ANEU, BMP #### [address] [address] Eosinophil, Absolute 0.1 10 3/mcL Normal 0.0-0.7 [facility] Comment on above: Performed By: #### A DIFF, PBNP, TROPHS, CBC, GFR, MDW, ANEU, BMP #### [address] [address] Eosinophils/100 WBC (Bld) 1.9 % Normal 0.0-6.0 [facility] Comment on above: Performed By: #### A DIFF, PBNP, TROPHS, CBC, GFR, MDW, ANEU, BMP #### [address] [address] Lymphocyte, Absolute 1.4 10 3/mcL Normal 0.9-4.3 [facility] Comment on above: Performed By: #### A DIFF, PBNP, TROPHS, CBC, GFR, MDW, ANEU, BMP #### [address] [address] Lymphocytes/100 WBC (Bld) 20.4 % Normal 20.0-40.0 [facility] Comment on above: Performed By: #### A DIFF, PBNP, TROPHS, CBC, GFR, MDW, ANEU, BMP #### [address] [address] Monocyte, Absolute 0.8 10 3/mcL Normal 0.1-1.4 [facility] Comment on above: Performed By: #### A DIFF, PBNP, TROPHS, CBC, GFR, MDW, ANEU, BMP #### [address] [address] Monocytes/100 WBC (Bld) 12.2 % Normal 2.0-13.0 [facility] Comment on above: Performed By: #### A DIFF, PBNP, TROPHS, CBC, GFR, MDW, ANEU, BMP #### [address] [address] Neutrophils/100 WBC (Bld) 63.5 % Normal 50.0-75.0 [facility] Comment on above: Performed By: #### A DIFF, PBNP, TROPHS, CBC, GFR, MDW, ANEU, BMP #### [address] [address] .GFRon 05-16-2025 Estimated Glomerular Filtration Rate 67 ml/min/1.73sqm Normal [facility] Comment on above: Result Comment: Stages [...] results. Performed By: #### M RSAPCR #### [address] [address] #### CVFLURV #### [address] [address] .MDWon 05-16-2025 Monocyte Distribution Width 16.95 Normal 0.00-20.00 [facility] Comment on above: Result Comment: For ED adult patients suspected of sepsis, MDW<=20.0 does not rule out sepsis or risk of sepsis Performed By: #### A DIFF, PBNP, TROPHS, CBC, GFR, MDW, ANEU, BMP #### [address] [address] .NEUABSon 05-16-2025 Neutrophil, Absolute 4.2 10 3/mcL Normal 2.3-8.1 [facility] Comment on above: Performed By: #### A DIFF, PBNP, TROPHS, CBC, GFR, MDW, ANEU, BMP #### [address] [address] BMPon 05-16-2025 BUN/Creatinine Ratio 13 ratio Normal 7-27 [facility] Comment on above: Performed By: #### A DIFF, PBNP, TROPHS, CBC, GFR, MDW, ANEU, BMP #### [address] [address] Calcium [Mass/Vol] 8.4 mg/dL Normal 8.4-10.2 [facility] Comment on above: Performed By: #### A DIFF, PBNP, TROPHS, CBC, GFR, MDW, ANEU, BMP #### [address] [address] Chloride [Moles/Vol] 109 mmol/L High 98-107 [facility] Comment on above: Performed By: #### A DIFF, PBNP, TROPHS, CBC, GFR, MDW, ANEU, BMP #### [address] [address] CO2 [Moles/Vol] 38 mmol/L High 23-31 [facility] Comment on above: Performed By: #### A DIFF, PBNP, TROPHS, CBC, GFR, MDW, ANEU, BMP #### [address] [address] Creatinine [Mass/Vol] 0.92 mg/dL Normal 0.51-0.95 [facility] Comment on above: Performed By: #### A DIFF, PBNP, TROPHS, CBC, GFR, MDW, ANEU, BMP #### [address] [address] Electrolyte Balance 2.0 mEq/L Low 4.0-15.0 [facility] Comment on above: Performed By: #### A DIFF, PBNP, TROPHS, CBC, GFR, MDW, ANEU, BMP #### [address] [address] Glucose [Mass/Vol] 124 mg/dL High 83-110 [facility] Comment on above: Performed By: #### A DIFF, PBNP, TROPHS, CBC, GFR, MDW, ANEU, BMP #### [address] [address] Potassium [Moles/Vol] 4.0 mmol/L Normal 3.5-5.1 [facility] Comment on above: Performed By: #### A DIFF, PBNP, TROPHS, CBC, GFR, MDW, ANEU, BMP #### [address] [address] Sodium [Moles/Vol] 149 mmol/L High 136-145 [facility] Comment on above: Performed By: #### A DIFF, PBNP, TROPHS, CBC, GFR, MDW, ANEU, BMP #### [address] [address] Urea nitrogen [Mass/Vol] 12 mg/dL Normal 7-18 [facility] Comment on above: Performed By: #### A DIFF, PBNP, TROPHS, CBC, GFR, MDW, ANEU, BMP #### [address] [address] CBCon 05-16-2025 Erythrocyte distribution width (RBC) [Ratio] 18.0 % High 11.5-15.5 [facility] Comment on above: Performed By: #### A DIFF, PBNP, TROPHS, CBC, GFR, MDW, ANEU, BMP #### [address] [address] Hematocrit (Bld) [Volume fraction] 43.3 % Normal 34.0-46.0 [facility] Comment on above: Performed By: #### A DIFF, PBNP, TROPHS, CBC, GFR, MDW, ANEU, BMP #### [address] [address] Hgb 13.8 G/dL Normal 12.0-16.0 [facility] Comment on above: Performed By: #### A DIFF, PBNP, TROPHS, CBC, GFR, MDW, ANEU, BMP #### [address] [address] MCH (RBC) [Entitic mass] 29.8 pg Normal 27.0-33.0 [facility] Comment on above: Performed By: #### A DIFF, PBNP, TROPHS, CBC, GFR, MDW, ANEU, BMP #### [address] [address] MCHC 31.9 G/dL Low 32.0-36.0 [facility] Comment on above: Performed By: #### A DIFF, PBNP, TROPHS, CBC, GFR, MDW, ANEU, BMP #### [address] [address] MCV (RBC) [Entitic vol] 93.3 fL Normal 80.0-99.0 [facility] Comment on above: Performed By: #### A DIFF, PBNP, TROPHS, CBC, GFR, MDW, ANEU, BMP #### [address] [address] Platelet 264 10 3/mcL Normal 150-450 [facility] Comment on above: Performed By: #### A DIFF, PBNP, TROPHS, CBC, GFR, MDW, ANEU, BMP #### [address] [address] Platelet mean volume (Bld) [Entitic vol] 9.0 fL Normal 6.6-10.5 [facility] Comment on above: Performed By: #### A DIFF, PBNP, TROPHS, CBC, GFR, MDW, ANEU, BMP #### [address] [address] RBC 4.64 10 6/mcL Normal 4.10-5.30 [facility] Comment on above: Performed By: #### A DIFF, PBNP, TROPHS, CBC, GFR, MDW, ANEU, BMP #### [address] [address] WBC 6.6 10 3/mcL Normal 4.5-10.8 [facility] Comment on above: Performed By: #### A DIFF, PBNP, TROPHS, CBC, GFR, MDW, ANEU, BMP #### [place] [address] [place] [address] LABORATORYOrdered By: Haider Ellis on 05-16-2025 Appearance [...] a homogeneous sandwich chemiluminescent immunoassay based on [employer] technology. PBNPon 05-16-2025 Natriuretic peptide B (Bld) [Mass/Vol] 4760 pg/mL High 0-125 [facility] Comment on above: Result Comment: NT-p roBNP results of less than 300 pg/mL effectively rules out acute congestive heart failure with 99% negative predictive value. Performed By: #### A DIFF, PBNP, TROPHS, CBC, GFR, MDW, ANEU, BMP #### [address] [address] [facility] High Sensitivity Troponin I 38 ng/L Normal 0-51 [facility] Comment on above: Result Comment: High Sensitive Troponin I Reference Ranges: Female: 0-51 ng/L Male: 0-76 ng/L Testing performed on Dimension EXm2p-labs using a homogeneous sandwich chemiluminescent immunoassay based on [employer] technology. Performed By: #### A DIFF, PBNP, TROPHS, CBC, GFR, MDW, ANEU, BMP #### [address] [address] UAon 05-16-2025 Color (U) Yellow Normal [facility] Comment on above: Performed By: #### A DIFF, PBNP, TROPHS, CBC, GFR, MDW, ANEU, BMP #### [address] [address] Glucose (U) [Mass/Vol] Negative Normal Negative [facility] Comment on above: Performed By: #### A DIFF, PBNP, TROPHS, CBC, GFR, MDW, ANEU, BMP #### [address] [address] Ketones Ql (U) Negative Normal Negative [facility] Comment on above: Performed By: #### A DIFF, PBNP, TROPHS, CBC, GFR, MDW, ANEU, BMP #### [place] [address] UA Appear Slightly Cloudy Abnormal Clear [facility] Comment on above: Performed By: #### A DIFF, PBNP, TROPHS, CBC, GFR, MDW, ANEU, BMP #### [place] [address] UA Blood Negative Normal Negative [facility] Comment on above: Performed By: #### A DIFF, PBNP, TROPHS, CBC, GFR, MDW, ANEU, BMP #### [place] [address] UA Leuk Est Negative Normal Negative [facility] Comment on above: Performed By: #### A DIFF, PBNP, TROPHS, CBC, GFR, MDW, ANEU, BMP #### [place] [address] UA Nitrite Negative Normal Negative [facility] Comment on above: Performed By: #### A DIFF, PBNP, TROPHS, CBC, GFR, MDW, ANEU, BMP #### [place] [address] UA pH 6.0 Normal 5.0 - 8.0 [facility] Comment on above: Performed By: #### A DIFF, PBNP, TROPHS, CBC, GFR, MDW, ANEU, BMP #### [place] [address] UA Protein 30 mg/dL Normal Negative [facility] Comment on above: Performed By: #### A DIFF, PBNP, TROPHS, CBC, GFR, MDW, ANEU, BMP #### [place] [address] UA Spec Grav 1.015 Normal 1.015-1.025 [facility] Comment on above: Performed By: #### A DIFF, PBNP, TROPHS, CBC, GFR, MDW, ANEU, BMP #### [place] [address] UA Specimen Type Not Given Normal [facility] Comment on above: Performed By: #### A DIFF, PBNP, TROPHS, CBC, GFR, MDW, ANEU, BMP #### [place] [address] UA Urobilinogen 0.2 E.U./dL Normal 0.2-1.0 [facility] Comment on above: Performed By: #### A DIFF, PBNP, TROPHS, CBC, GFR, MDW, ANEU, BMP #### [place] [address] Urobilinogen (U) [Mass/Vol] Negative Normal Negative [facility] Comment on above: Performed By: #### A DIFF, PBNP, TROPHS, CBC, GFR, MDW, ANEU, BMP #### [place] [address] UAMICon 05-16-2025 UA Bacteria 2+ /hpf Abnormal Negative [facility] Comment on above: Performed By: #### A DIFF, PBNP, TROPHS, CBC, GFR, MDW, ANEU, BMP #### [place] [address] UA RBC Negative Normal 0-2 [facility] Comment on above: Performed By: #### A DIFF, PBNP, TROPHS, CBC, GFR, MDW, ANEU, BMP #### [place] [address] UA Squam Epithelial 3-5 Normal 0-20 [facility] Comment on above: Performed By: #### A DIFF, PBNP, TROPHS, CBC, GFR, MDW, ANEU, BMP #### [place] [address] UA WBC 0-2 Normal 0-5 [facility] Comment on above: Performed By: #### A DIFF, PBNP, TROPHS, CBC, GFR, MDW, ANEU, BMP #### [place] [address] UA Yeast Trace Abnormal [facility] Comment on above: Performed By: #### A DIFF, PBNP, TROPHS, CBC, GFR, MDW, ANEU, BMP #### [place] [address] [place], [place] [address] XR CHEST 1 VIEWon 05-16-2025 XR CHEST [...] 8:27:46 PM Ordering Provider: BRIAN TRINIDAD Normal [facility] .Auto Diffon 03-05-2025 Basophil, Absolute 0.0 10 3/mcL Normal 0.0-0.3 [facility] Comment on above: Performed By: #### M RSAPCR #### [facility] [address] [place] [id number] #### CVFLURV #### [place] [address] [place], [place] [address] Basophils/100 WBC (Bld) 0.1 % Normal 0.0-2.[address] [facility] Comment on above: Performed By: #### M RSAPCR #### [place] [address] #### CVFLURV #### [address] [address] Eosinophil, Absolute 0.0 10 3/mcL Normal 0.0-0.7 [facility] Comment on above: Performed By: #### M RSAPCR #### [place] [address] #### CVFLURV #### [address] [address] Eosinophils/100 WBC (Bld) 0.0 % Normal 0.0-6.0 [facility] Comment on above: Performed By: #### M RSAPCR #### [place] [address] #### CVFLURV #### [address] [address] Lymphocyte, Absolute 0.4 10 3/mcL Low 0.9-4.3 [facility] Comment on above: Performed By: #### M RSAPCR #### [place] [address] #### CVFLURV #### [address] [address] Lymphocytes/100 WBC (Bld) 4.4 % Low 20.0-40.0 [facility] Comment on above: Performed By: #### M RSAPCR #### [place] [address] #### CVFLURV #### [address] [address] Monocyte, Absolute 0.2 10 3/mcL Normal 0.1-1.4 [facility] Comment on above: Performed By: #### M RSAPCR #### [place] [address] #### CVFLURV #### [address] [address] Monocytes/100 WBC (Bld) 2.7 % Normal 2.0-13.[address] [facility] Comment on above: Performed By: #### M RSAPCR #### [address] [address] #### CVFLURV #### [address] [address] Neutrophils/100 WBC (Bld) 92.8 % High 50.0-75.0 [facility] Comment on above: Performed By: #### M RSAPCR #### [place] [address] #### CVFLURV #### [address] [address] .GFRon 03-05-2025 Estimated Glomerular Filtration Rate 88 ml/min/1.73sqm Normal [facility] Comment on above: Result Comment: Stages [...] results. Performed By: #### M RSAPCR #### [place] [address] #### CVFLURV #### [address] [address] .NEUABSon 03-05-2025 Neutrophil, Absolute 7.6 10 3/mcL Normal 2.3-8.1 [facility] Comment on above: Performed By: #### M RSAPCR #### [place] [id number] #### CVFLURV #### [address] [address] BMPon 03-05-2025 BUN/Creatinine Ratio 28 ratio High 7-27 [facility] Comment on above: Performed By: #### M RSAPCR #### [place] [address] #### CVFLURV #### [address] [address] Calcium [Mass/Vol] 8.5 mg/dL Normal 8.4-10.2 [facility] Comment on above: Performed By: #### M RSAPCR #### [place] [address] #### CVFLURV #### [place] [address] Chloride [Moles/Vol] 107 mmol/L Normal 98-107 [facility] Comment on above: Performed By: #### M RSAPCR #### [place] [address] #### CVFLURV #### [address] [address] CO2 [Moles/Vol] 29 mmol/L Normal 23-31 [facility] Comment on above: Performed By: #### M RSAPCR #### [place] [address] #### CVFLURV #### [address] [address] Creatinine [Mass/Vol] 0.74 mg/dL Normal 0.51-0.95 [facility] Comment on above: Performed By: #### M RSAPCR #### [place] [address] #### CVFLURV #### [address] [address] Electrolyte Balance 5.0 mEq/L Normal 4.0-15.0 [facility] Comment on above: Performed By: #### M RSAPCR #### [place] [address] #### CVFLURV #### [address] [address] Glucose [Mass/Vol] 160 mg/dL High 80-115 [facility] Comment on above: Performed By: #### M RSAPCR #### [place] [address] #### CVFLURV #### [address] [address] Potassium [Moles/Vol] 4.6 mmol/L Normal 3.5-5.1 [facility] Comment on above: Performed By: #### M RSAPCR #### [place] [address] #### CVFLURV #### [address] [address] Sodium [Moles/Vol] 141 mmol/L Normal 136-145 [facility] Comment on above: Performed By: #### M RSAPCR #### [place] [address] #### CVFLURV #### [address] [address] Urea nitrogen [Mass/Vol] 21 mg/dL High 7-18 [facility] Comment on above: Performed By: #### M RSAPCR #### [place] [address] #### CVFLURV #### [address] [address] CBCon 03-05-2025 Erythrocyte distribution width (RBC) [Ratio] 16.5 % High 11.5-15.5 [facility] Comment on above: Performed By: #### M RSAPCR #### [place] [address] #### CVFLURV #### [address] [address] Hematocrit (Bld) [Volume fraction] 38.1 % Normal 34.0-46.0 [facility] Comment on above: Performed By: #### M RSAPCR #### [place] [address] #### CVFLURV #### [address] [address] Hgb 12.4 G/dL Normal 12.0-16.0 [facility] Comment on above: Performed By: #### M RSAPCR #### [place] [address] #### CVFLURV #### [address] [address] MCH (RBC) [Entitic mass] 29.7 pg Normal 27.0-33.0 [facility] Comment on above: Performed By: #### M RSAPCR #### [place] [address] #### CVFLURV #### [place] [address] MCHC 32.4 G/dL Normal 32.0-36.0 [facility] Comment on above: Performed By: #### M RSAPCR #### [place] [address] #### CVFLURV #### [place] [address] MCV (RBC) [Entitic vol] 91.7 fL Normal 80.0-99.0 [facility] Comment on above: Performed By: #### M RSAPCR #### [place] [address] #### CVFLURV #### [address] [address] Platelet 318 10 3/mcL Normal 150-450 [facility] Comment on above: Performed By: #### M RSAPCR #### [place] [address] #### CVFLURV #### [address] [address] Platelet mean volume (Bld) [Entitic vol] 8.2 fL Normal 6.6-10.5 [facility] Comment on above: Performed By: #### M RSAPCR #### [place] [address] #### CVFLURV #### [address] [address] RBC 4.16 10 6/mcL Normal 4.10-5.30 [facility] Comment on above: Performed By: #### M RSAPCR #### [place] [address] #### CVFLURV #### [place] [address] WBC 8.2 10 3/mcL Normal 4.5-10.8 [facility] Comment on above: Performed By: #### M RSAPCR #### [place] [address] #### CVFLURV #### [place] [address] LABORATORYOrdered By: SYSTEM SYSTEM on 03-05-2025 Basophils [...] Basophil, Absolute 0.1 10 3/mcL Normal 0.0-0.3 [facility] Comment on above: Performed By: #### A DIFF, PBNP, TROPHS, CBC, GFR, MDW, ANEU, BMP #### [address] [address] Basophils/100 WBC (Bld) 0.9 % Normal 0.0-2.5 [facility] Comment on above: Performed By: #### A DIFF, PBNP, TROPHS, CBC, GFR, MDW, ANEU, BMP #### [address] [address] Eosinophil, Absolute 0.2 10 3/mcL Normal 0.0-0.7 [facility] Comment on above: Performed By: #### A DIFF, PBNP, TROPHS, CBC, GFR, MDW, ANEU, BMP #### 07 [address] [address] Eosinophils/100 WBC (Bld) 1.9 % Normal 0.0-6.0 [facility] Comment on above: Performed By: #### A DIFF, PBNP, TROPHS, CBC, GFR, MDW, ANEU, BMP #### [address] [address] Lymphocyte, Absolute 1.9 10 3/mcL Normal 0.9-4.3 [facility] Comment on above: Performed By: #### A DIFF, PBNP, TROPHS, CBC, GFR, MDW, ANEU, BMP #### [address] [address] Lymphocytes/100 WBC (Bld) 22.2 % Normal 20.0-40.0 [facility] Comment on above: Performed By: #### A DIFF, PBNP, TROPHS, CBC, GFR, MDW, ANEU, BMP #### [address] [address] Monocyte, Absolute 1.0 10 3/mcL Normal 0.1-1.4 [facility] Comment on above: Performed By: #### A DIFF, PBNP, TROPHS, CBC, GFR, MDW, ANEU, BMP #### [address] [address] Monocytes/100 WBC (Bld) 11.9 % Normal 2.0-13.0 [facility] Comment on above: Performed By: #### A DIFF, PBNP, TROPHS, CBC, GFR, MDW, ANEU, BMP #### [address] [address] Neutrophils/100 WBC (Bld) 63.1 % Normal 50.0-75.0 [facility] Comment on above: Performed By: #### A DIFF, PBNP, TROPHS, CBC, GFR, MDW, ANEU, BMP #### [address] [address] .GFRon 03-04-2025 Estimated Glomerular Filtration Rate 75 ml/min/1.73sqm Normal [facility] Comment on above: Result Comment: Stages [...] results. Performed By: #### M RSAPCR #### [place] [address] #### CVFLURV #### [address] [address] .MDWon 03-04-2025 Monocyte Distribution Width 17.56 Normal 0.00-20.00 [facility] Comment on above: Result Comment: For ED adult patients suspected of sepsis, MDW<=20.0 does not rule out sepsis or risk of sepsis Performed By: #### M RSAPCR #### [place] [address] #### CVFLURV #### [address] [address] .NEUABSon 03-04-2025 Neutrophil, Absolute 5.3 10 3/mcL Normal 2.3-8.1 [facility] Comment on above: Performed By: #### M RSAPCR #### [place] [address] #### CVFLURV #### [address] [address] BMPon 03-04-2025 BUN/Creatinine Ratio 18 ratio Normal 7-27 [facility] Comment on above: Performed By: #### M RSAPCR #### [place] [address] #### CVFLURV #### [address] [address] Calcium [Mass/Vol] 9.0 mg/dL Normal 8.4-10.2 [facility] Comment on above: Performed By: #### M RSAPCR #### [place] [address] #### CVFLURV #### [address] [address] Chloride [Moles/Vol] 106 mmol/L Normal 98-107 [facility] Comment on above: Performed By: #### M RSAPCR #### [place] [address] #### CVFLURV #### [address] [address] CO2 [Moles/Vol] 34 mmol/L High 23-31 [facility] Comment on above: Performed By: #### M RSAPCR #### [place] [address] #### CVFLURV #### [address] [address] Creatinine [Mass/Vol] 0.84 mg/dL Normal 0.51-0.95 [facility] Comment on above: Performed By: #### M RSAPCR #### [place] [address] #### CVFLURV #### [address] [address] Electrolyte Balance 3.0 mEq/L Low 4.0-15.0 [facility] Comment on above: Performed By: #### M RSAPCR #### [place] [address] #### CVFLURV #### [address] [address] Glucose [Mass/Vol] 137 mg/dL High 80-115 [facility] Comment on above: Performed By: #### M RSAPCR #### [place] [address] #### CVFLURV #### [address] [address] Potassium [Moles/Vol] 4.1 mmol/L Normal 3.5-5.1 [facility] Comment on above: Performed By: #### M RSAPCR #### [place] [address] #### CVFLURV #### [address] [address] Sodium [Moles/Vol] 143 mmol/L Normal 136-145 [facility] Comment on above: Performed By: #### M RSAPCR #### [address] [address] #### CVFLURV #### [address] [address] Urea nitrogen [Mass/Vol] 15 mg/dL Normal 7-18 [facility] Comment on above: Performed By: #### M RSAPCR #### [address] [address] #### CVFLURV #### [address] [address] CBCon 03-04-2025 Erythrocyte distribution width (RBC) [Ratio] 16.9 % High 11.5-15.5 [facility] Comment on above: Performed By: #### A DIFF, PBNP, TROPHS, CBC, GFR, MDW, ANEU, BMP #### [address] [address] Hematocrit (Bld) [Volume fraction] 45.7 % Normal 34.0-46.0 [facility] Comment on above: Performed By: #### A DIFF, PBNP, TROPHS, CBC, GFR, MDW, ANEU, BMP #### [address] [address] Hgb 14.9 G/dL Normal 12.0-16.0 [facility] Comment on above: Performed By: #### A DIFF, PBNP, TROPHS, CBC, GFR, MDW, ANEU, BMP #### [address] [address] MCH (RBC) [Entitic mass] 30.0 pg Normal 27.0-33.0 [facility] Comment on above: Performed By: #### A DIFF, PBNP, TROPHS, CBC, GFR, MDW, ANEU, BMP #### [address] [address] MCHC 32.5 G/dL Normal 32.0-36.0 [facility] Comment on above: Performed By: #### A DIFF, PBNP, TROPHS, CBC, GFR, MDW, ANEU, BMP #### [address] [address] MCV (RBC) [Entitic vol] 92.2 fL Normal 80.0-99.[address] [facility] Comment on above: Performed By: #### A DIFF, PBNP, TROPHS, CBC, GFR, MDW, ANEU, BMP #### [address] [address] Platelet 369 10 3/mcL Normal 150-450 [facility] Comment on above: Performed By: #### A DIFF, PBNP, TROPHS, CBC, GFR, MDW, ANEU, BMP #### [address] [address] Platelet mean volume (Bld) [Entitic vol] 8.1 fL Normal 6.6-10.5 [facility] Comment on above: Performed By: #### A DIFF, PBNP, TROPHS, CBC, GFR, MDW, ANEU, BMP #### [address] [address] RBC 4.95 10 6/mcL Normal 4.10-5.30 [facility] Comment on above: Performed By: #### A DIFF, PBNP, TROPHS, CBC, GFR, MDW, ANEU, BMP #### [address] [address] WBC 8.4 10 3/mcL Normal 4.5-10.8 [facility] Comment on above: Performed By: #### A DIFF, PBNP, TROPHS, CBC, GFR, MDW, ANEU, BMP #### [address] [address] CVFLURVon 03-04-2025 FLU A PCR Negative Normal Negative [facility] Comment on above: Result Comment: [place] [id number] Performed By: #### M RSAPCR #### [facility] [address] [place] [address] #### CVFLURV #### [address] [address] FLU B PCR Negative Normal Negative [facility] Comment on above: Result Comment: [place] [id number] Performed By: #### M RSAPCR #### [address] [address] #### CVFLURV #### [address] [address] RSV PCR Negative Normal Negative [facility] Comment on above: Result Comment: [place] [id number] Performed By: #### M RSAPCR #### [address] [address] #### CVFLURV #### [place] [address] [place], [place] [address] SARS-CoV-2 (COVID-19) RNA IVANA+probe Ql (Unsp spec) Negative Normal Negative [facility] Comment on above: Result Comment: Note s [id number] This test has been authorized by FDA [...] results. Performed By: #### M RSAPCR #### [address] [address] #### CVFLURV #### [place] [address] [place] [id number] LABORATORYOrdered By: Guillermo Lebron on 03-04-2025 Adenovirus DNA IVANA+non-probe Ql (Nph) Not Detected *NA* (03/04/25 10:09 AM) Invalid Interpretation Code Not Detected AH Auto Viro/Sero SS B. parapertussis [id number] DNA IVANA+non-probe Ql (Nph) Not Detected *NA* [...] his assay has been validated in the [facility] for use with nasopharyngeal specimens in [facility]. If a non-validated specimen or test collection [...] Comment on above: Result Comment: [place] [id number] FLUBV RNA IVANA+probe Ql (Resp) Negative 10 (03/04/25 10:09 AM) Normal Negative [facility] Auto Viro/Sero SS Comment on above: Result Comment: Note s [id number] RSV PCR Negative 11 (03/04/25 10:09 AM) Normal Negative AH Auto Viro/Sero SS Comment on above: Result Comment: Note s [id number] SARS-CoV-2 (COVID-19) RNA IVANA+probe Ql (Resp) Negative 7, 8 (03/04/25 10:09 AM) Normal Negative [facility] Auto Viro/Sero SS Comment on above: Result Comment: Note s [id number] Interpretive Data: T his test has been [...] ng/L Male: 0-76 ng/L Testing performed on [employer] using a homogeneous sandwich chemiluminescent immunoassay based on [employer] technology. Urea nitrogen [Mass/Vol] 15 mg/dL Normal 7 - 18 mg/dL AO ADM SS Urea nitrogen/Creatinine [Mass ratio] 18 ratio Normal 7 - 27 ratio AO ADM SS WBC (Bld) [#/Vol] 8.4 103/mcL Normal 4.5 - 10.8 10^3/mcL AO Workflow SS PBNPon 03-04-2025 Natriuretic peptide B (Bld) [Mass/Vol] 2664 pg/mL High 0-125 [facility] Comment on above: Result Comment: NT-p roBNP results of less than 300 pg/mL effectively rules out acute congestive heart failure with 99% negative predictive value. Performed By: #### A DIFF, PBNP, TROPHS, CBC, GFR, MDW, ANEU, BMP #### [place] [address] RESCVIDon 03-04-2025 Adenovirus Not detected Normal Not Detected [facility] Comment on above: Performed By: #### M RSAPCR #### [place] [address] #### CVFLURV #### [place] [address] Bordetella Parapertussis Not detected Normal Not Detected [facility] Comment on above: Performed By: #### M RSAPCR #### [place] [address] #### CVFLURV #### [place] [address] Bordetella Pertussis Not detected Normal Not Detected [facility] Comment on above: Performed By: #### M RSAPCR #### [place] [address] #### CVFLURV #### [address] [address] Chlamydophila pneumoniae Not detected Normal Not Detected [facility] Comment on above: Performed By: #### M RSAPCR #### [place] [address] #### CVFLURV #### [place] [address] Coronavirus 229E (Not COVID-19) Not detected Normal Not Detected [facility] Comment on above: Performed By: #### M RSAPCR #### [place] [address] #### CVFLURV #### [address] [address] Coronavirus HKU1 (Not COVID-19) Not detected Normal Not Detected [facility] Comment on above: Performed By: #### M RSAPCR #### [place] [address] #### CVFLURV #### [address] [address] Coronavirus NL63 (Not COVID-19) Not detected Normal Not Detected [facility] Comment on above: Performed By: #### M RSAPCR #### [place] [address] #### CVFLURV #### [address] [address] Coronavirus OC43 (Not COVID-19) Not detected Normal Not Detected [facility] Comment on above: Performed By: #### M RSAPCR #### [place] [address] #### CVFLURV #### [address] [address] Human Metapneumovirus Not detected Normal Not Detected [facility] Comment on above: Performed By: #### M RSAPCR #### [place] [address] #### CVFLURV #### [address] [address] Influenza A Not detected Normal Not Detected [facility] Comment on above: Performed By: #### M RSAPCR #### [place] [id number] #### CVFLURV #### [address] [address] Influenza B Not detected Normal Not Detected [facility] Comment on above: Performed By: #### M RSAPCR #### [address] [place], [place] [address] #### CVFLURV #### [address] [address] Mycoplasma pneumoniae Not detected Normal Not Detected [facility] Comment on above: Performed By: #### M RSAPCR #### [facility] [address] [place] [address] #### CVFLURV #### [address] [address] Parainfluenza 1 Not detected Normal Not Detected [facility] Comment on above: Performed By: #### M RSAPCR #### [place] [id number] #### CVFLURV #### [address] [address] Parainfluenza 2 Not detected Normal Not Detected [facility] Comment on above: Performed By: #### M RSAPCR #### [place] [address] #### CVFLURV #### [address] [address] Parainfluenza 3 Not detected Normal Not Detected [facility] Comment on above: Performed By: #### M RSAPCR #### [address] [address] #### CVFLURV #### [address] [address] Parainfluenza 4 Not detected Normal Not Detected [facility] Comment on above: Performed By: #### M RSAPCR #### [facility] [address] [place] [address] #### CVFLURV #### [address] [address] Respiratory Syncytial Virus Not detected Normal Not Detected [facility] Comment on above: Performed By: #### M RSAPCR #### [address] [address] #### CVFLURV #### [address] [address] Rhinovirus/Enterovirus Not detected Normal Not Detected [facility] Comment on above: Performed By: #### M RSAPCR #### [address] [address] #### CVFLURV #### [address] [address] SARS-CoV-2 (COVID-19) RNA IVANA+probe Ql (Unsp spec) Not detected Normal Not Detected [facility] Comment on above: Result Comment: This assay has been validated in the [facility] for use with nasopharyngeal specimens in [facility]. If a non-validated specimen or test collection [...] authorities. Performed By: #### M RSAPCR #### [address] [address] #### CVFLURV #### [place] [address] [place], [place] [address] [facility] 03-04-2025 High Sensitivity Troponin I 33 ng/L Normal 0-51 [facility] Comment on above: Result Comment: High Sensitive Troponin I Reference Ranges: Female: 0-51 ng/L Male: 0-76 ng/L Testing performed on [employer] using a homogeneous sandwich chemiluminescent immunoassay based on [employer] technology. Performed By: #### M RSAPCR #### [facility] [address] [place] [address] #### CVFLURV #### [place] [address] [place], [place] [address] XR CHEST 1 VIEWon 03-04-2025 XR CHEST [...] 6:41:45 AM Ordering Provider: EMMANUEL KILLIAN Normal [facility] MYCOon 02-21-2025 Mycoplasma IgM Negative [facility] Comment on above: Result Comment: INTE [...] TROPHS, CBC, GFR, MDW, ANEU, BMP #### [place] [address] [place], [place] [address] .Auto Diffon 02-20-2025 Basophil, Absolute 0.1 10 3/mcL Normal 0.0-0.3 [facility] Comment on above: Performed By: #### A DIFF, PBNP, TROPHS, CBC, GFR, MDW, ANEU, BMP #### [address] [address] Basophils/100 WBC (Bld) 1.4 % Normal 0.0-2.5 [facility] Comment on above: Performed By: #### A DIFF, PBNP, TROPHS, CBC, GFR, MDW, ANEU, BMP #### [address] [address] Eosinophil, Absolute 0.2 10 3/mcL Normal 0.0-0.7 [facility] Comment on above: Performed By: #### A DIFF, PBNP, TROPHS, CBC, GFR, MDW, ANEU, BMP #### [address] [address] Eosinophils/100 WBC (Bld) 2.3 % Normal 0.0-6.0 [facility] Comment on above: Performed By: #### A DIFF, PBNP, TROPHS, CBC, GFR, MDW, ANEU, BMP #### [address] [address] Lymphocyte, Absolute 1.9 10 3/mcL Normal 0.9-4.3 [facility] Comment on above: Performed By: #### A DIFF, PBNP, TROPHS, CBC, GFR, MDW, ANEU, BMP #### [address] [address] Lymphocytes/100 WBC (Bld) 28.3 % Normal 20.0-40.0 [facility] Comment on above: Performed By: #### A DIFF, PBNP, TROPHS, CBC, GFR, MDW, ANEU, BMP #### [address] [address] Monocyte, Absolute 1.0 10 3/mcL Normal 0.1-1.4 [facility] Comment on above: Performed By: #### A DIFF, PBNP, TROPHS, CBC, GFR, MDW, ANEU, BMP #### [address] [address] Monocytes/100 WBC (Bld) 14.2 % High 2.0-13.[address] [facility] Comment on above: Performed By: #### A DIFF, PBNP, TROPHS, CBC, GFR, MDW, ANEU, BMP #### [place] [address] [place], [place] [address] Neutrophils/100 WBC (Bld) 53.8 % Normal 50.0-75.0 [facility] Comment on above: Performed By: #### A DIFF, PBNP, TROPHS, CBC, GFR, MDW, ANEU, BMP #### [address] [address] .GFRon 02-20-2025 Estimated Glomerular Filtration Rate 88 ml/min/1.73sqm Normal [facility] Comment on above: Result Comment: Stages [...] TROPHS, CBC, GFR, MDW, ANEU, BMP #### [address] [address] .NEUABSon 02-20-2025 Neutrophil, Absolute 3.7 10 3/mcL Normal 2.3-8.1 [facility] Comment on above: Performed By: #### A DIFF, PBNP, TROPHS, CBC, GFR, MDW, ANEU, BMP #### [address] [address] BMPon 02-20-2025 BUN/Creatinine Ratio 22 ratio Normal 7-27 [facility] Comment on above: Performed By: #### A DIFF, PBNP, TROPHS, CBC, GFR, MDW, ANEU, BMP #### [address] [address] Calcium [Mass/Vol] 8.1 mg/dL Low 8.4-10.2 [facility] Comment on above: Performed By: #### A DIFF, PBNP, TROPHS, CBC, GFR, MDW, ANEU, BMP #### [address] [address] Chloride [Moles/Vol] 107 mmol/L Normal 98-107 [facility] Comment on above: Performed By: #### A DIFF, PBNP, TROPHS, CBC, GFR, MDW, ANEU, BMP #### [address] [address] CO2 [Moles/Vol] 32 mmol/L High 23-31 [facility] Comment on above: Performed By: #### A DIFF, PBNP, TROPHS, CBC, GFR, MDW, ANEU, BMP #### [address] [address] Creatinine [Mass/Vol] 0.74 mg/dL Normal 0.55-1.02 [facility] Comment on above: Result Comment: Test ing performed on Siemens Dimension EXL analyzer using a modified kinetic [place] technique. Performed By: #### A DIFF, PBNP, TROPHS, CBC, GFR, MDW, ANEU, BMP #### [address] [address] Electrolyte Balance 3.0 mEq/L Low 4.0-15.0 [facility] Comment on above: Performed By: #### A DIFF, PBNP, TROPHS, CBC, GFR, MDW, ANEU, BMP #### [address] [address] Glucose [Mass/Vol] 105 mg/dL Normal 80-115 [facility] Comment on above: Performed By: #### A DIFF, PBNP, TROPHS, CBC, GFR, MDW, ANEU, BMP #### [address] [address] Potassium [Moles/Vol] 3.9 mmol/L Normal 3.5-5.1 [facility] Comment on above: Performed By: #### A DIFF, PBNP, TROPHS, CBC, GFR, MDW, ANEU, BMP #### [place] [address] [place] [id number] Sodium [Moles/Vol] 142 mmol/L Normal 136-145 [facility] Comment on above: Performed By: #### A DIFF, PBNP, TROPHS, CBC, GFR, MDW, ANEU, BMP #### [place] [id number] Urea nitrogen [Mass/Vol] 16 mg/dL Normal 7-18 [facility] Comment on above: Performed By: #### A DIFF, PBNP, TROPHS, CBC, GFR, MDW, ANEU, BMP #### [place] [id number] CBCon 02-20-2025 Erythrocyte distribution width (RBC) [Ratio] 16.1 % High 11.5-15.5 [facility] Comment on above: Performed By: #### A DIFF, PBNP, TROPHS, CBC, GFR, MDW, ANEU, BMP #### [address] [address] Hematocrit (Bld) [Volume fraction] 37.9 % Normal 34.0-46.0 [facility] Comment on above: Performed By: #### A DIFF, PBNP, TROPHS, CBC, GFR, MDW, ANEU, BMP #### [address] [address] Hgb 12.2 G/dL Normal 12.0-16.0 [facility] Comment on above: Performed By: #### A DIFF, PBNP, TROPHS, CBC, GFR, MDW, ANEU, BMP #### [address] [address] MCH (RBC) [Entitic mass] 29.4 pg Normal 27.0-33.0 [facility] Comment on above: Performed By: #### A DIFF, PBNP, TROPHS, CBC, GFR, MDW, ANEU, BMP #### [address] [address] MCHC 32.2 G/dL Normal 32.0-36.0 [facility] Comment on above: Performed By: #### A DIFF, PBNP, TROPHS, CBC, GFR, MDW, ANEU, BMP #### [address] [address] MCV (RBC) [Entitic vol] 91.2 fL Normal 80.0-99.0 [facility] Comment on above: Performed By: #### A DIFF, PBNP, TROPHS, CBC, GFR, MDW, ANEU, BMP #### [address] [address] Platelet 304 10 3/mcL Normal 150-450 [facility] Comment on above: Performed By: #### A DIFF, PBNP, TROPHS, CBC, GFR, MDW, ANEU, BMP #### [address] [address] Platelet mean volume (Bld) [Entitic vol] 8.4 fL Normal 6.6-10.5 [facility] Comment on above: Performed By: #### A DIFF, PBNP, TROPHS, CBC, GFR, MDW, ANEU, BMP #### [address] [address] RBC 4.16 10 6/mcL Normal 4.10-5.30 [facility] Comment on above: Performed By: #### A DIFF, PBNP, TROPHS, CBC, GFR, MDW, ANEU, BMP #### [address] [address] WBC 6.9 10 3/mcL Normal 4.5-10.8 [facility] Comment on above: Performed By: #### A DIFF, PBNP, TROPHS, CBC, GFR, MDW, ANEU, BMP #### [address] [address] MGon 02-20-2025 Magnesium [Mass/Vol] 1.6 mg/dL Low 1.8-2.4 [facility] Comment on above: Performed By: #### A DIFF, PBNP, TROPHS, CBC, GFR, MDW, ANEU, BMP #### [address] [address] MYCOon 02-20-2025 Mycoplasma IgG Positive Normal [facility] Comment on above: Result Comment: INTE RPRETATION OF MYCOPLASMA IgG BY EIA: Negative: No detectable M. pneumoniae IgG antibody. Positive: Mycoplasma pneumoniae IgG antibody Detected. Equivocal: Equivocal for IgG antibodies to Mycoplasma pneumoniae. Suggest repeat testing in 10-14 days. Performed By: #### A DIFF, PBNP, TROPHS, CBC, GFR, MDW, ANEU, BMP #### [address] [address] .Auto Diffon 02-19-2025 Basophil, Absolute 0.1 10 3/mcL Normal 0.0-0.3 [facility] Comment on above: Performed By: #### A DIFF, PBNP, TROPHS, CBC, GFR, MDW, ANEU, BMP #### [address] [address] Basophils/100 WBC (Bld) 0.6 % Normal 0.0-2.5 [facility] Comment on above: Performed By: #### A DIFF, PBNP, TROPHS, CBC, GFR, MDW, ANEU, BMP #### [address] [address] Eosinophil, Absolute 0.1 10 3/mcL Normal 0.0-0.7 [facility] Comment on above: Performed By: #### A DIFF, PBNP, TROPHS, CBC, GFR, MDW, ANEU, BMP #### [address] [address] Eosinophils/100 WBC (Bld) 0.6 % Normal 0.0-6.0 [facility] Comment on above: Performed By: #### A DIFF, PBNP, TROPHS, CBC, GFR, MDW, ANEU, BMP #### [address] [address] Lymphocyte, Absolute 1.7 10 3/mcL Normal 0.9-4.3 [facility] Comment on above: Performed By: #### A DIFF, PBNP, TROPHS, CBC, GFR, MDW, ANEU, BMP #### [address] [address] Lymphocytes/100 WBC (Bld) 17.7 % Low 20.0-40.0 [facility] Comment on above: Performed By: #### A DIFF, PBNP, TROPHS, CBC, GFR, MDW, ANEU, BMP #### [address] [address] Monocyte, Absolute 0.8 10 3/mcL Normal 0.1-1.4 [facility] Comment on above: Performed By: #### A DIFF, PBNP, TROPHS, CBC, GFR, MDW, ANEU, BMP #### [address] [address] Monocytes/100 WBC (Bld) 8.0 % Normal 2.0-13.[address] [facility] Comment on above: Performed By: #### A DIFF, PBNP, TROPHS, CBC, GFR, MDW, ANEU, BMP #### [address] [address] Neutrophils/100 WBC (Bld) 73.1 % Normal 50.0-75.0 [facility] Comment on above: Performed By: #### A DIFF, PBNP, TROPHS, CBC, GFR, MDW, ANEU, BMP #### [address] [address] Basophil, Absolute 0.1 10 3/mcL Normal 0.0-0.3 [facility] Comment on above: Performed By: #### A DIFF, PBNP, TROPHS, CBC, GFR, MDW, ANEU, BMP #### [address] [address] Basophils/100 WBC (Bld) 0.7 % Normal 0.0-2.5 [facility] Comment on above: Performed By: #### A DIFF, PBNP, TROPHS, CBC, GFR, MDW, ANEU, BMP #### [address] [address] Eosinophil, Absolute 0.2 10 3/mcL Normal 0.0-0.7 [facility] Comment on above: Performed By: #### A DIFF, PBNP, TROPHS, CBC, GFR, MDW, ANEU, BMP #### [address] [address] Eosinophils/100 WBC (Bld) 1.7 % Normal 0.0-6.0 [facility] Comment on above: Performed By: #### A DIFF, PBNP, TROPHS, CBC, GFR, MDW, ANEU, BMP #### [address] [address] Lymphocyte, Absolute 2.3 10 3/mcL Normal 0.9-4.3 [facility] Comment on above: Performed By: #### A DIFF, PBNP, TROPHS, CBC, GFR, MDW, ANEU, BMP #### [address] [address] Lymphocytes/100 WBC (Bld) 21.0 % Normal 20.0-40.0 [facility] Comment on above: Performed By: #### A DIFF, PBNP, TROPHS, CBC, GFR, MDW, ANEU, BMP #### [address] [id number] Monocyte, Absolute 1.0 10 3/mcL Normal 0.1-1.4 [facility] Comment on above: Performed By: #### A DIFF, PBNP, TROPHS, CBC, GFR, MDW, ANEU, BMP #### [address] [id number] Monocytes/100 WBC (Bld) 9.2 % Normal 2.0-13.0 [facility] Comment on above: Performed By: #### A DIFF, PBNP, TROPHS, CBC, GFR, MDW, ANEU, BMP #### [address] [address] Neutrophils/100 WBC (Bld) 67.4 % Normal 50.0-75.0 [facility] Comment on above: Performed By: #### A DIFF, PBNP, TROPHS, CBC, GFR, MDRoshan, MARK, BMP #### [address] [address] .GFRon 02-19-2025 Estimated Glomerular Filtration Rate 90 ml/min/1.73sqm Normal [facility] Comment on above: Result Comment: Stages [...] TROPHS, CBC, GFR, MDRoshan, MARK, BMP #### [address] [address] Estimated Glomerular Filtration Rate 81 ml/min/1.73sqm Normal [facility] Comment on above: Result Comment: Stages [...] TROPHS, CBC, GFR, MDW, ANEU, BMP #### [address] [address] .MDWon 02-19-2025 Monocyte Distribution Width 18.70 Normal 0.00-20.00 [facility] Comment on above: Result Comment: For ED adult patients suspected of sepsis, MDW<=20.0 does not rule out sepsis or risk of sepsis Performed By: #### A DIFF, PBNP, TROPHS, CBC, GFR, MDW, ANEU, BMP #### [address] [address] .NEUABSon 02-19-2025 Neutrophil, Absolute 7.2 10 3/mcL Normal 2.3-8.1 [facility] Comment on above: Performed By: #### A DIFF, PBNP, TROPHS, CBC, GFR, MDW, ANEU, BMP #### [address] [address] Neutrophil, Absolute 7.3 10 3/mcL Normal 2.3-8.1 [facility] Comment on above: Performed By: #### A DIFF, PBNP, TROPHS, CBC, GFR, MDW, ANEU, BMP #### [address] [address] BMPon 02-19-2025 BUN/Creatinine Ratio 19 ratio Normal 7-27 [facility] Comment on above: Performed By: #### A DIFF, PBNP, TROPHS, CBC, GFR, MDW, ANEU, BMP #### [address] [address] Calcium [Mass/Vol] 8.2 mg/dL Low 8.4-10.2 [facility] Comment on above: Performed By: #### A DIFF, PBNP, TROPHS, CBC, GFR, MDW, ANEU, BMP #### [address] [address] Chloride [Moles/Vol] 108 mmol/L High 98-107 [facility] Comment on above: Performed By: #### A DIFF, PBNP, TROPHS, CBC, GFR, MDW, ANEU, BMP #### [address] [address] CO2 [Moles/Vol] 28 mmol/L Normal 23-31 [facility] Comment on above: Performed By: #### A DIFF, PBNP, TROPHS, CBC, GFR, MDW, ANEU, BMP #### [address] [address] Creatinine [Mass/Vol] 0.72 mg/dL Normal 0.55-1.02 [facility] Comment on above: Result Comment: Test ing performed on Siemens Dimension EXL analyzer using a modified kinetic [place] technique. Performed By: #### A DIFF, PBNP, TROPHS, CBC, GFR, MDW, ANEU, BMP #### [address] [address] Electrolyte Balance 7.0 mEq/L Normal 4.0-15.0 [facility] Comment on above: Performed By: #### A DIFF, PBNP, TROPHS, CBC, GFR, MDW, ANEU, BMP #### [address] [address] Glucose [Mass/Vol] 132 mg/dL High 80-115 [facility] Comment on above: Performed By: #### A DIFF, PBNP, TROPHS, CBC, GFR, MDW, ANEU, BMP #### [address] [address] Potassium [Moles/Vol] 4.7 mmol/L Normal 3.5-5.1 [facility] Comment on above: Performed By: #### A DIFF, PBNP, TROPHS, CBC, GFR, MDW, ANEU, BMP #### [address] [address] Sodium [Moles/Vol] 143 mmol/L Normal 136-145 [facility] Comment on above: Performed By: #### A DIFF, PBNP, TROPHS, CBC, GFR, MDW, ANEU, BMP #### [address] [address] Urea nitrogen [Mass/Vol] 14 mg/dL Normal 7-18 [facility] Comment on above: Performed By: #### A DIFF, PBNP, TROPHS, CBC, GFR, MDW, ANEU, BMP #### [address] [address] CBCon 02-19-2025 Erythrocyte distribution width (RBC) [Ratio] 15.7 % High 11.5-15.5 [facility] Comment on above: Performed By: #### A DIFF, PBNP, TROPHS, CBC, GFR, MDW, ANEU, BMP #### [place] [address] Hematocrit (Bld) [Volume fraction] 38.8 % Normal 34.0-46.0 [facility] Comment on above: Performed By: #### A DIFF, PBNP, TROPHS, CBC, GFR, MDW, ANEU, BMP #### [place] [address] Hgb 12.6 G/dL Normal 12.0-16.0 [facility] Comment on above: Performed By: #### A DIFF, PBNP, TROPHS, CBC, GFR, MDW, ANEU, BMP #### [place] [id number] MCH (RBC) [Entitic mass] 30.0 pg Normal 27.0-33.0 [facility] Comment on above: Performed By: #### A DIFF, PBNP, TROPHS, CBC, GFR, MDW, ANEU, BMP #### [place] [address] MCHC 32.5 G/dL Normal 32.0-36.0 [facility] Comment on above: Performed By: #### A DIFF, PBNP, TROPHS, CBC, GFR, MDW, ANEU, BMP #### [place] [id number] MCV (RBC) [Entitic vol] 92.2 fL Normal 80.0-99.0 [facility] Comment on above: Performed By: #### A DIFF, PBNP, TROPHS, CBC, GFR, MDW, ANEU, BMP #### [address] [address] Platelet 310 10 3/mcL Normal 150-450 [facility] Comment on above: Performed By: #### A DIFF, PBNP, TROPHS, CBC, GFR, MDW, ANEU, BMP #### [address] [address] Platelet mean volume (Bld) [Entitic vol] 8.6 fL Normal 6.6-10.5 [facility] Comment on above: Performed By: #### A DIFF, PBNP, TROPHS, CBC, GFR, MDW, ANEU, BMP #### [address] [address] RBC 4.21 10 6/mcL Normal 4.10-5.30 [facility] Comment on above: Performed By: #### A DIFF, PBNP, TROPHS, CBC, GFR, MDW, ANEU, BMP #### [address] [address] WBC 9.8 10 3/mcL Normal 4.5-10.8 [facility] Comment on above: Performed By: #### A DIFF, PBNP, TROPHS, CBC, GFR, MDW, ANEU, BMP #### [address] [address] Erythrocyte distribution width (RBC) [Ratio] 16.0 % High 11.5-15.5 [facility] Comment on above: Performed By: #### A DIFF, PBNP, TROPHS, CBC, GFR, MDW, ANEU, BMP #### [address] [address] Hematocrit (Bld) [Volume fraction] 39.3 % Normal 34.0-46.0 [facility] Comment on above: Performed By: #### A DIFF, PBNP, TROPHS, CBC, GFR, MDW, ANEU, BMP #### [address] [address] Hgb 12.8 G/dL Normal 12.0-16.0 [facility] Comment on above: Performed By: #### A DIFF, PBNP, TROPHS, CBC, GFR, MDW, ANEU, BMP #### [address] [address] MCH (RBC) [Entitic mass] 29.7 pg Normal 27.0-33.0 [facility] Comment on above: Performed By: #### A DIFF, PBNP, TROPHS, CBC, GFR, MDW, ANEU, BMP #### [address] [address] MCHC 32.6 G/dL Normal 32.0-36.0 [facility] Comment on above: Performed By: #### A DIFF, PBNP, TROPHS, CBC, GFR, MDW, ANEU, BMP #### [place] [address] MCV (RBC) [Entitic vol] 91.1 fL Normal 80.0-99.0 [facility] Comment on above: Performed By: #### A DIFF, PBNP, TROPHS, CBC, GFR, MDW, ANEU, BMP #### [address] [address] Platelet 327 10 3/mcL Normal 150-450 [facility] Comment on above: Performed By: #### A DIFF, PBNP, TROPHS, CBC, GFR, MDW, ANEU, BMP #### [place] [address] Platelet mean volume (Bld) [Entitic vol] 8.2 fL Normal 6.6-10.5 [facility] Comment on above: Performed By: #### A DIFF, PBNP, TROPHS, CBC, GFR, MDW, ANEU, BMP #### [place] [address] RBC 4.31 10 6/mcL Normal 4.10-5.30 [facility] Comment on above: Performed By: #### A DIFF, PBNP, TROPHS, CBC, GFR, MDW, ANEU, BMP #### [place] [address] WBC 10.8 10 3/mcL Normal 4.5-10.8 [facility] Comment on above: Performed By: #### A DIFF, PBNP, TROPHS, CBC, GFR, MDW, ANEU, BMP #### [address] [address] CMPon 02-19-2025 Albumin Level 3.3 G/dL Low 3.4-4.8 [facility] Comment on above: Performed By: #### A DIFF, PBNP, TROPHS, CBC, GFR, MDW, ANEU, BMP #### [address] [address] Albumin/Globulin [Mass ratio] 1.0 {ratio} Low 1.1-2.5 [facility] Comment on above: Performed By: #### A DIFF, PBNP, TROPHS, CBC, GFR, MDW, ANEU, BMP #### [address] [address] ALP [Catalytic activity/Vol] 104 U/L Normal 40-135 [facility] Comment on above: Performed By: #### A DIFF, PBNP, TROPHS, CBC, GFR, MDW, ANEU, BMP #### [address] [address] ALT [Catalytic activity/Vol] 36 U/L Normal 14-59 [facility] Comment on above: Performed By: #### A DIFF, PBNP, TROPHS, CBC, GFR, MDW, ANEU, BMP #### [address] [address] AST [Catalytic activity/Vol] 38 U/L Normal 10-40 [facility] Comment on above: Performed By: #### A DIFF, PBNP, TROPHS, CBC, GFR, MDW, ANEU, BMP #### [address] [address] Bili Total 0.2 mg/dL Normal 0.2-1.0 [facility] Comment on above: Result Comment: Use of this assay is not recommended for patients undergoing treatment with eltrombopag due to the potential for falsely elevated results. Performed By: #### A DIFF, PBNP, TROPHS, CBC, GFR, MDW, ANEU, BMP #### [address] [address] BUN/Creatinine Ratio 19 ratio Normal 7-27 [facility] Comment on above: Performed By: #### A DIFF, PBNP, TROPHS, CBC, GFR, MDW, ANEU, BMP #### [address] [address] Calcium [Mass/Vol] 8.2 mg/dL Low 8.4-10.2 [facility] Comment on above: Performed By: #### A DIFF, PBNP, TROPHS, CBC, GFR, MDW, ANEU, BMP #### [address] [address] Chloride [Moles/Vol] 106 mmol/L Normal 98-107 [facility] Comment on above: Performed By: #### A DIFF, PBNP, TROPHS, CBC, GFR, MDW, ANEU, BMP #### [address] [address] CO2 [Moles/Vol] 32 mmol/L High 23-31 [facility] Comment on above: Performed By: #### A DIFF, PBNP, TROPHS, CBC, GFR, MDW, ANEU, BMP #### [address] [address] Creatinine [Mass/Vol] 0.79 mg/dL Normal 0.55-1.02 [facility] Comment on above: Result Comment: Test ing performed on Siemens Dimension EXL analyzer using a modified kinetic [place] technique. Performed By: #### A DIFF, PBNP, TROPHS, CBC, GFR, MDW, ANEU, BMP #### [address] [address] Electrolyte Balance 4.0 mEq/L Normal 4.0-15.0 [facility] Comment on above: Performed By: #### A DIFF, PBNP, TROPHS, CBC, GFR, MDW, ANEU, BMP #### [address] [address] Globulin 3.2 G/dL Normal 1.5-3.8 [facility] Comment on above: Performed By: #### A DIFF, PBNP, TROPHS, CBC, GFR, MDW, ANEU, BMP #### [address] [address] Glucose [Mass/Vol] 114 mg/dL Normal 80-115 [facility] Comment on above: Performed By: #### A DIFF, PBNP, TROPHS, CBC, GFR, MDW, ANEU, BMP #### [address] [address] Potassium [Moles/Vol] 4.2 mmol/L Normal 3.5-5.1 [facility] Comment on above: Performed By: #### A DIFF, PBNP, TROPHS, CBC, GFR, MDW, ANEU, BMP #### [address] [address] Sodium [Moles/Vol] 142 mmol/L Normal 136-145 [facility] Comment on above: Performed By: #### A DIFF, PBNP, TROPHS, CBC, GFR, MDW, ANEU, BMP #### [address] [address] Total Protein 6.5 G/dL Normal 6.4-8.2 [facility] Comment on above: Performed By: #### A DIFF, PBNP, TROPHS, CBC, GFR, MDW, ANEU, BMP #### [address] [address] Urea nitrogen [Mass/Vol] 15 mg/dL Normal 7-18 [facility] Comment on above: Performed By: #### A DIFF, PBNP, TROPHS, CBC, GFR, MDW, ANEU, BMP #### [address] [address] CVFLURVon 02-19-2025 FLU A PCR Negative Normal Negative [facility] Comment on above: Performed By: #### M RSAPCR #### [place] [address] #### CVFLURV #### [place] [address] FLU B PCR Negative Normal Negative [facility] Comment on above: Performed By: #### M RSAPCR #### [address] [address] #### CVFLURV #### [place] [address] RSV PCR Negative Normal Negative [facility] Comment on above: Performed By: #### M RSAPCR #### [place] [address] #### CVFLURV #### [place] [address] SARS-CoV-2 (COVID-19) RNA IVANA+probe Ql (Unsp spec) Negative Normal Negative [facility] Comment on above: Result Comment: Resu [...] results. Performed By: #### M RSAPCR #### [place] [address] #### CVFLURV #### [place] [address] LACon 02-19-2025 Lactic Acid Lvl 1.1 mmol/L Normal 0.4-2.0 [facility] Comment on above: Performed By: #### A DIFF, PBNP, TROPHS, CBC, GFR, MDW, ANEU, BMP #### [address] [address] MGon 02-19-2025 Magnesium [Mass/Vol] 1.8 mg/dL Normal 1.8-2.4 [facility] Comment on above: Performed By: #### A DIFF, PBNP, TROPHS, CBC, GFR, MDW, ANEU, BMP #### [address] [address] MRSAPCRon 02-19-2025 MRSA (PCR) Not detected Normal Not Detected [facility] Comment on above: Result Comment: [place] [id number] Performed By: #### M RSAPCR #### [place] [address] #### CVFLURV #### [place] [address] MRSA PCR Int Normal [facility] Comment on above: Result Comment: MRSA [...] Below Performed By: #### M RSAPCR #### [place] [address] #### CVFLURV #### [address] [address] PBNPon 02-19-2025 Natriuretic peptide B (Bld) [Mass/Vol] 2711 pg/mL High 0-125 [facility] Comment on above: Result Comment: NT-p roBNP results of less than 300 pg/mL effectively rules out acute congestive heart failure with 99% negative predictive value. Performed By: #### A DIFF, PBNP, TROPHS, CBC, GFR, MDW, ANEU, BMP #### [place] [id number] RESCVIDon 02-19-2025 Adenovirus Not detected Normal Not Detected [facility] Comment on above: Performed By: #### M RSAPCR #### [place] [address] #### CVFLURV #### [address] [address] Bordetella Parapertussis Not detected Normal Not Detected [facility] Comment on above: Performed By: #### M RSAPCR #### [place] [address] #### CVFLURV #### [address] [address] Bordetella Pertussis Not detected Normal Not Detected [facility] Comment on above: Performed By: #### M RSAPCR #### [place] [address] #### CVFLURV #### [address] [address] Chlamydophila pneumoniae Not detected Normal Not Detected [facility] Comment on above: Performed By: #### M RSAPCR #### [place] [address] #### CVFLURV #### [address] [address] Coronavirus 229E (Not COVID-19) Not detected Normal Not Detected [facility] Comment on above: Performed By: #### M RSAPCR #### [place] [address] #### CVFLURV #### [address] [address] Coronavirus HKU1 (Not COVID-19) Not detected Normal Not Detected [facility] Comment on above: Performed By: #### M RSAPCR #### [place] [id number] #### CVFLURV #### [address] [address] Coronavirus NL63 (Not COVID-19) Not detected Normal Not Detected [facility] Comment on above: Performed By: #### M RSAPCR #### [facility] [address] [place] [address] #### CVFLURV #### [address] [address] Coronavirus OC43 (Not COVID-19) Not detected Normal Not Detected [facility] Comment on above: Performed By: #### M RSAPCR #### [facility] [address] [place], [place] [id number] #### CVFLURV #### [address] [address] Human Metapneumovirus Not detected Normal Not Detected [facility] Comment on above: Performed By: #### M RSAPCR #### [place] [id number] #### CVFLURV #### [address] [address] Influenza A Not detected Normal Not Detected [facility] Comment on above: Performed By: #### M RSAPCR #### [place] [id number] #### CVFLURV #### [address] [address] Influenza B Not detected Normal Not Detected [facility] Comment on above: Performed By: #### M RSAPCR #### [address] [address] #### CVFLURV #### [address] [address] Mycoplasma pneumoniae Not detected Normal Not Detected [facility] Comment on above: Performed By: #### M RSAPCR #### [facility] [address] [place] [address] #### CVFLURV #### [address] [address] Parainfluenza 1 Not detected Normal Not Detected [facility] Comment on above: Performed By: #### M RSAPCR #### [facility] [address] [place], [place] [id number] #### CVFLURV #### [address] [address] Parainfluenza 2 Not detected Normal Not Detected [facility] Comment on above: Performed By: #### M RSAPCR #### [place] [address] #### CVFLURV #### [address] [address] Parainfluenza 3 Not detected Normal Not Detected [facility] Comment on above: Performed By: #### M RSAPCR #### [place] [address] #### CVFLURV #### [address] [address] Parainfluenza 4 Not detected Normal Not Detected [facility] Comment on above: Performed By: #### M RSAPCR #### [place] [address] #### CVFLURV #### [address] [address] Respiratory Syncytial Virus Not detected Normal Not Detected [facility] Comment on above: Performed By: #### M RSAPCR #### [place] [address] #### CVFLURV #### [address] [address] Rhinovirus/Enterovirus Not detected Normal Not Detected [facility] Comment on above: Performed By: #### M RSAPCR #### [place] [address] #### CVFLURV #### [address] [address] SARS-CoV-2 (COVID-19) RNA IVANA+probe Ql (Unsp spec) Not detected Normal Not Detected [facility] Comment on above: Result Comment: This assay has been validated in the [facility] for use with nasopharyngeal specimens in [facility]. If a non-validated specimen or test collection [...] authorities. Performed By: #### M RSAPCR #### [place] [address] #### CVFLURV #### [address] [address] [facility] 02-19-2025 High Sensitivity Troponin I 27 ng/L Normal 0-51 [facility] Comment on above: Result Comment: High Sensitive Troponin I Reference Ranges: Female: 0-51 ng/L Male: 0-76 ng/L Testing performed on [employer] using a homogeneous sandwich chemiluminescent immunoassay based on [employer] technology. Performed By: #### A DIFF, PBNP, TROPHS, CBC, GFR, MDW, ANEU, BMP #### [address] [address] XR CHEST 1 VIEWon 02-19-2025 XR CHEST [...] 02/19/2025 1:37:16 AM Ordering Provider: CORNELIUS Rivero [facility] US ABDOMEN COMPLETEon 2024 US ABDOMEN [...] 02/03/2025 11:50:40 AM Ordering Provider: EMMA Rivero [facility] .Auto Diffon 12-11-2024 Basophil, Absolute 0.1 10 3/mcL Normal 0.0-0.2 [facility] Comment on above: Performed By: #### M RSAPCR #### [place] [address] #### CVFLURV #### [address] [address] Basophils/100 WBC (Bld) 1.4 % Normal 0.0-2.5 [facility] Comment on above: Performed By: #### M RSAPCR #### [place] [address] #### CVFLURV #### [address] [address] Eosinophil, Absolute 0.2 10 3/mcL Normal 0.0-0.7 [facility] Comment on above: Performed By: #### M RSAPCR #### [place] [address] #### CVFLURV #### [address] [address] Eosinophils/100 WBC (Bld) 2.8 % Normal 0.0-7.0 [facility] Comment on above: Performed By: #### M RSAPCR #### [place] [address] #### CVFLURV #### [address] [address] Lymphocyte, Absolute 2.1 10 3/mcL Normal 0.9-4.3 [facility] Comment on above: Performed By: #### M RSAPCR #### [place] [address] #### CVFLURV #### [address] [address] Lymphocytes/100 WBC (Bld) 29.6 % Normal 20.0-40.0 [facility] Comment on above: Performed By: #### M RSAPCR #### [address] [address] #### CVFLURV #### [address] [address] Monocyte, Absolute 0.8 10 3/mcL Normal 0.1-1.4 [facility] Comment on above: Performed By: #### M RSAPCR #### [place] [address] #### CVFLURV #### [address] [address] Monocytes/100 WBC (Bld) 11.4 % Normal 2.0-13.0 [facility] Comment on above: Performed By: #### M RSAPCR #### [place] [address] #### CVFLURV #### [address] [address] Neutrophils/100 WBC (Bld) 54.8 % Normal 50.0-75.0 [facility] Comment on above: Performed By: #### M RSAPCR #### [place] [address] #### CVFLURV #### [address] [address] .GFRon 12-11-2024 GFR Non- 56 ml/min/1.73sqm Normal [facility] Comment on above: Result Comment: GFR [...] TROPHS, CBC, GFR, MDW, ANEU, BMP #### [address] [address] GFR 67 ml/min/1.73sqm Normal [facility] Comment on above: Result Comment: GFR [...] TROPHS, CBC, GFR, MDW, ANEU, BMP #### [address] [address] .NEUABSon 12-11-2024 Neutrophil, Absolute 3.9 10 3/mcL Normal 2.3-8.1 [facility] Comment on above: Performed By: #### M RSAPCR #### [address] [address] #### CVFLURV #### [address] [address] BMPon 12-11-2024 BUN/Creatinine Ratio 14 ratio Normal 7-27 [facility] Comment on above: Performed By: #### A DIFF, PBNP, TROPHS, CBC, GFR, MDW, ANEU, BMP #### [address] [address] Chloride [Moles/Vol] 105 mmol/L Normal 98-107 [facility] Comment on above: Performed By: #### A DIFF, PBNP, TROPHS, CBC, GFR, MDW, ANEU, BMP #### [address] [address] CO2 [Moles/Vol] 30 mmol/L Normal 23-31 [facility] Comment on above: Performed By: #### A DIFF, PBNP, TROPHS, CBC, GFR, MDW, ANEU, BMP #### [address] [address] Creatinine [Mass/Vol] 0.99 mg/dL Normal 0.55-1.02 [facility] Comment on above: Result Comment: Test ing performed on Siemens Dimension EXL analyzer using a modified kinetic [place] technique. Performed By: #### A DIFF, PBNP, TROPHS, CBC, GFR, MDW, ANEU, BMP #### [address] [address] Electrolyte Balance 8.0 mEq/L Normal 4.0-15.0 [facility] Comment on above: Performed By: #### A DIFF, PBNP, TROPHS, CBC, GFR, MDW, ANEU, BMP #### [address] [address] Glucose [Mass/Vol] 117 mg/dL High 80-115 [facility] Comment on above: Performed By: #### A DIFF, PBNP, TROPHS, CBC, GFR, MDW, ANEU, BMP #### [address] [address] Potassium [Moles/Vol] 4.7 mmol/L Normal 3.5-5.1 [facility] Comment on above: Performed By: #### A DIFF, PBNP, TROPHS, CBC, GFR, MDW, ANEU, BMP #### [address] [address] Sodium [Moles/Vol] 143 mmol/L Normal 136-145 [facility] Comment on above: Performed By: #### A DIFF, PBNP, TROPHS, CBC, GFR, MDW, ANEU, BMP #### [address] [place] [address] Urea nitrogen [Mass/Vol] 14 mg/dL Normal 7-18 [facility] Comment on above: Performed By: #### A DIFF, PBNP, TROPHS, CBC, GFR, MDW, ANEU, BMP #### [address] [address] Calcium [Mass/Vol] 9.8 mg/dL Normal 8.4-10.2 [facility] Comment on above: Performed By: #### A DIFF, PBNP, TROPHS, CBC, GFR, MDW, ANEU, BMP #### [address] [address] CBCon 12-11-2024 Erythrocyte distribution width (RBC) [Ratio] 14.6 % Normal 11.5-15.5 [facility] Comment on above: Performed By: #### M RSAPCR #### [place] [address] #### CVFLURV #### [address] [address] Hematocrit (Bld) [Volume fraction] 48.2 % High 34.0-46.0 [facility] Comment on above: Performed By: #### M RSAPCR #### [place] [address] #### CVFLURV #### [address] [address] Hgb 15.6 G/dL Normal 12.0-16.0 [facility] Comment on above: Performed By: #### M RSAPCR #### [place] [address] #### CVFLURV #### [address] [address] MCH (RBC) [Entitic mass] 30.5 pg Normal 27.0-33.0 [facility] Comment on above: Performed By: #### M RSAPCR #### [place] [address] #### CVFLURV #### [address] [address] MCHC 32.4 G/dL Normal 32.0-36.0 [facility] Comment on above: Performed By: #### M RSAPCR #### [place] [address] #### CVFLURV #### [address] [address] MCV (RBC) [Entitic vol] 94.2 fL Normal 80.0-99.0 [facility] Comment on above: Performed By: #### M RSAPCR #### [place] [id number] #### CVFLURV #### [address] [address] Platelet 370 10 3/mcL Normal 150-450 [facility] Comment on above: Performed By: #### M RSAPCR #### [place] [address] #### CVFLURV #### [address] [address] Platelet mean volume (Bld) [Entitic vol] 9.1 fL Normal 6.6-10.5 [facility] Comment on above: Performed By: #### M RSAPCR #### [place] [address] #### CVFLURV #### [place] [address] RBC 5.12 10 6/mcL Normal 4.10-5.30 [facility] Comment on above: Performed By: #### M RSAPCR #### [place] [address] #### CVFLURV #### [place] [address] WBC 7.0 10 3/mcL Normal 4.5-10.8 [facility] Comment on above: Performed By: #### M RSAPCR #### [place] [address] #### CVFLURV #### [facility] [address] [place], [place] [address] LABORATORYOrdered By: SYSTEM SYSTEM on 12-11-2024 Basophils [...] Comment on above: Interpretive Data: Luis reinoso [employer] (CHEST, 1992, 102:312S-25S) [...] Coag (PPP) [Time] 10.4 s Normal 9.0-14.4 [facility] Comment on above: Performed By: #### M RSAPCR #### [address] [address] #### CVFLURV #### [facility] [address] [place], [place] [address] PT International Ratio 0.9 Normal [facility] Comment on above: Result Comment: [employer] (CHEST, 1992, 102:312S-25S) recommended therapeutic range for oral anticoagulant therapy is: LOW RISK: Prophylaxis of venous thrombosis INR: 2.0-3.0 Treatment of pulmonary embolism 2.0-3.0 Prevention of systemic embolism 2.0-3.0 HIGH RISK: Mechanical prosthetic valves 2.5-3.5 Performed By: #### M RSAPCR #### [facility] [address] [place] [address] #### CVFLURV #### [address] [address] .Auto Diffon 10-23-2024 Basophil, Absolute 0.1 10 3/mcL Normal 0.0-0.2 [facility] Comment on above: Performed By: #### A DIFF, PBNP, TROPHS, CBC, GFR, MDW, ANEU, BMP #### [address] [address] Basophils/100 WBC (Bld) 1.7 % Normal 0.0-2.5 [facility] Comment on above: Performed By: #### A DIFF, PBNP, TROPHS, CBC, GFR, MDW, ANEU, BMP #### [address] [address] Eosinophil, Absolute 0.1 10 3/mcL Normal 0.0-0.7 [facility] Comment on above: Performed By: #### A DIFF, PBNP, TROPHS, CBC, GFR, MDW, ANEU, BMP #### [address] [address] Eosinophils/100 WBC (Bld) 2.2 % Normal 0.0-7.0 [facility] Comment on above: Performed By: #### A DIFF, PBNP, TROPHS, CBC, GFR, MDW, ANEU, BMP #### [address] [address] Lymphocyte, Absolute 2.0 10 3/mcL Normal 0.9-4.3 [facility] Comment on above: Performed By: #### A DIFF, PBNP, TROPHS, CBC, GFR, MDW, ANEU, BMP #### [address] [address] Lymphocytes/100 WBC (Bld) 31.1 % Normal 20.0-40.0 [facility] Comment on above: Performed By: #### A DIFF, PBNP, TROPHS, CBC, GFR, MDW, ANEU, BMP #### [address] [address] Monocyte, Absolute 0.8 10 3/mcL Normal 0.1-1.4 [facility] Comment on above: Performed By: #### A DIFF, PBNP, TROPHS, CBC, GFR, MDW, ANEU, BMP #### [address] [address] Monocytes/100 WBC (Bld) 12.1 % Normal 2.0-13.0 [facility] Comment on above: Performed By: #### A DIFF, PBNP, TROPHS, CBC, GFR, MDW, ANEU, BMP #### [address] [address] Neutrophils/100 WBC (Bld) 52.9 % Normal 50.0-75.0 [facility] Comment on above: Performed By: #### A DIFF, PBNP, TROPHS, CBC, GFR, MDW, ANEU, BMP #### [address] [address] .GFRon 10-23-2024 GFR 102 ml/min/1.73sqm Normal [facility] Comment on above: Result Comment: GFR [...] TROPHS, CBC, GFR, MDW, ANEU, BMP #### [address] [address] GFR Non- 84 ml/min/1.73sqm Normal [facility] Comment on above: Result Comment: GFR [...] TROPHS, CBC, GFR, MDW, ANEU, BMP #### [address] [address] .NEUABSon 10-23-2024 Neutrophil, Absolute 3.4 10 3/mcL Normal 2.3-8.1 [facility] Comment on above: Performed By: #### A DIFF, PBNP, TROPHS, CBC, GFR, MDW, ANEU, BMP #### [address] [address] A1Con 10-23-2024 Glucose [Mass/Vol] 117 mg/dL Normal [facility] Comment on above: Result Comment: Johnna mated Average Glucose calculated by equation ((28.7xA1C)-46.7) Estimated average glucose (eAG) is a calculated value from Hemoglobin A1C and is termite control service representative of the average blood glucose level in the last 2-3 month period. Normal range: less than 114 mg/dL Performed By: #### A DIFF, PBNP, TROPHS, CBC, GFR, MDW, ANEU, BMP #### [address] [address] HbA1c (Bld) [Mass fraction] 5.7 % Normal 4.3-6.4 [facility] Comment on above: Performed By: #### A DIFF, PBNP, TROPHS, CBC, GFR, MDW, ANEU, BMP #### [address] [address] CBCon 10-23-2024 Erythrocyte distribution width (RBC) [Ratio] 14.8 % Normal 11.5-15.5 [facility] Comment on above: Performed By: #### A DIFF, PBNP, TROPHS, CBC, GFR, MDW, ANEU, BMP #### [address] [address] Hematocrit (Bld) [Volume fraction] 44.0 % Normal 34.0-46.0 [facility] Comment on above: Performed By: #### A DIFF, PBNP, TROPHS, CBC, GFR, MDW, ANEU, BMP #### [address] [address] Hgb 14.5 G/dL Normal 12.0-16.0 [facility] Comment on above: Performed By: #### A DIFF, PBNP, TROPHS, CBC, GFR, MDW, ANEU, BMP #### [address] [address] MCH (RBC) [Entitic mass] 31.5 pg Normal 27.0-33.0 [facility] Comment on above: Performed By: #### A DIFF, PBNP, TROPHS, CBC, GFR, MDW, ANEU, BMP #### [address] [address] MCHC 32.9 G/dL Normal 32.0-36.0 [facility] Comment on above: Performed By: #### A DIFF, PBNP, TROPHS, CBC, GFR, MDW, ANEU, BMP #### [address] [address] MCV (RBC) [Entitic vol] 95.6 fL Normal 80.0-99.0 [facility] Comment on above: Performed By: #### A DIFF, PBNP, TROPHS, CBC, GFR, MDW, ANEU, BMP #### [address] [address] Platelet 365 10 3/mcL Normal 150-450 [facility] Comment on above: Performed By: #### A DIFF, PBNP, TROPHS, CBC, GFR, MDW, ANEU, BMP #### [address] [address] Platelet mean volume (Bld) [Entitic vol] 8.8 fL Normal 6.6-10.5 [facility] Comment on above: Performed By: #### A DIFF, PBNP, TROPHS, CBC, GFR, MDW, ANEU, BMP #### [address] [address] RBC 4.60 10 6/mcL Normal 4.10-5.30 [facility] Comment on above: Performed By: #### A DIFF, PBNP, TROPHS, CBC, GFR, MDW, ANEU, BMP #### [address] [address] WBC 6.5 10 3/mcL Normal 4.5-10.8 [facility] Comment on above: Performed By: #### A DIFF, PBNP, TROPHS, CBC, GFR, MDW, ANEU, BMP #### [address] [address] CMPon 10-23-2024 Albumin Level 3.4 G/dL Normal 3.4-4.8 [facility] Comment on above: Performed By: #### A DIFF, PBNP, TROPHS, CBC, GFR, MDW, ANEU, BMP #### [address] [address] Albumin/Globulin [Mass ratio] 1.0 {ratio} Low 1.1-2.5 [facility] Comment on above: Performed By: #### A DIFF, PBNP, TROPHS, CBC, GFR, MDW, ANEU, BMP #### [address] [address] ALP [Catalytic activity/Vol] 99 U/L Normal 40-135 [facility] Comment on above: Performed By: #### A DIFF, PBNP, TROPHS, CBC, GFR, MDW, ANEU, BMP #### [address] [address] ALT [Catalytic activity/Vol] 19 U/L Normal 14-59 [facility] Comment on above: Performed By: #### A DIFF, PBNP, TROPHS, CBC, GFR, MDW, ANEU, BMP #### [address] [address] AST [Catalytic activity/Vol] 17 U/L Normal 10-40 [facility] Comment on above: Performed By: #### A DIFF, PBNP, TROPHS, CBC, GFR, MDW, ANEU, BMP #### [address] [address] Bili Total 0.4 mg/dL Normal 0.2-1.0 [facility] Comment on above: Result Comment: Use of this assay is not recommended for patients undergoing treatment with eltrombopag due to the potential for falsely elevated results. Performed By: #### A DIFF, PBNP, TROPHS, CBC, GFR, MDW, ANEU, BMP #### [address] [address] BUN/Creatinine Ratio 10 ratio Normal 7-27 [facility] Comment on above: Performed By: #### A DIFF, PBNP, TROPHS, CBC, GFR, MDW, ANEU, BMP #### [address] [address] Calcium [Mass/Vol] 9.2 mg/dL Normal 8.4-10.2 [facility] Comment on above: Performed By: #### A DIFF, PBNP, TROPHS, CBC, GFR, MDW, ANEU, BMP #### [address] [address] Chloride [Moles/Vol] 103 mmol/L Normal 98-107 [facility] Comment on above: Performed By: #### A DIFF, PBNP, TROPHS, CBC, GFR, MDW, ANEU, BMP #### [address] [address] CO2 [Moles/Vol] 31 mmol/L Normal 23-31 [facility] Comment on above: Performed By: #### A DIFF, PBNP, TROPHS, CBC, GFR, MDW, ANEU, BMP #### [address] [address] Creatinine [Mass/Vol] 0.69 mg/dL Normal 0.55-1.02 [facility] Comment on above: Result Comment: Test ing performed on Siemens Dimension EXL analyzer using a modified kinetic [place] technique. Performed By: #### A DIFF, PBNP, TROPHS, CBC, GFR, MDW, ANEU, BMP #### [address] [address] Electrolyte Balance 6.0 mEq/L Normal 4.0-15.0 [facility] Comment on above: Performed By: #### A DIFF, PBNP, TROPHS, CBC, GFR, MDW, ANEU, BMP #### [address] [address] Globulin 3.4 G/dL Normal [facility] Comment on above: Performed By: #### A DIFF, PBNP, TROPHS, CBC, GFR, MDW, ANEU, BMP #### [address] [address] Glucose [Mass/Vol] 86 mg/dL Normal 80-115 [facility] Comment on above: Performed By: #### A DIFF, PBNP, TROPHS, CBC, GFR, MDW, ANEU, BMP #### [address] [address] Potassium [Moles/Vol] 4.7 mmol/L Normal 3.5-5.1 [facility] Comment on above: Performed By: #### A DIFF, PBNP, TROPHS, CBC, GFR, MDW, ANEU, BMP #### [address] [address] Sodium [Moles/Vol] 140 mmol/L Normal 136-145 [facility] Comment on above: Performed By: #### A DIFF, PBNP, TROPHS, CBC, GFR, MDW, ANEU, BMP #### [address] [place], [place] [address] Total Protein 6.8 G/dL Normal 6.4-8.2 [facility] Comment on above: Performed By: #### A DIFF, PBNP, TROPHS, CBC, GFR, MDW, ANEU, BMP #### [address] [place], [place] [address] Urea nitrogen [Mass/Vol] 7 mg/dL Normal 7-18 [facility] Comment on above: Performed By: #### A DIFF, PBNP, TROPHS, CBC, GFR, MDW, ANEU, BMP #### [address] [place], [place] [address] LABORATORYOrdered By: SYSTEM SYSTEM on 10-23-2024 Albumin [...] calculated value from Hemoglobin A1C and is termite control service representative of the average blood glucose level [...] 10-23-2024 Cholesterol [Mass/Vol] 244 mg/dL High 0-200 [facility] Comment on above: Result Comment: Chol esterol Reference Interval: Less than 200 Desirable 200-239 Borderline high risk 240 and above High risk Performed By: #### A DIFF, PBNP, TROPHS, CBC, GFR, MDW, ANEU, BMP #### [address] [place], [place] [address] Cholesterol in HDL [Mass/Vol] 69 mg/dL High 40-60 [facility] Comment on above: Performed By: #### A DIFF, PBNP, TROPHS, CBC, GFR, MDW, ANEU, BMP #### [address] [place], [place] [address] Cholesterol in LDL [Mass/Vol] 148 mg/dL High 0-130 [facility] Comment on above: Performed By: #### A DIFF, PBNP, TROPHS, CBC, GFR, MDW, ANEU, BMP #### [address] [place], [place] [address] Triglyceride [Mass/Vol] 135 mg/dL Normal 0-150 [facility] Comment on above: Result Comment: Trig lyceride Reference Interval: Less than 150 Normal 150-199 Borderline high risk 200-499 High risk 500 or higher Very high risk Performed By: #### A DIFF, PBNP, TROPHS, CBC, GFR, MDW, ANEU, BMP #### [address] [address] TSHon 10-23-2024 TSH Qn 2.34 m[IU]/L Normal 0.36-3.74 [facility] Comment on above: Performed By: #### A DIFF, PBNP, TROPHS, CBC, GFR, MDW, ANEU, BMP #### [address] [address] CNCOon 10-02-2023 CNCO Letter Text Normal [facility] 09-25-2023 CNPN Telephone (INTMWS) STEVEN KOENIG ([id number]) 1955 F Date Time Provider Department 09/25/23 ULISES HERMOSILLO INTMWS During your visit today, we recorded the following information about you: Nena Dozier RN 09/25/2023 4:02 PM Signed Patient calls to report that she is currently in [place] and will be there for the next several months. Patient is going to run out of medication and is unable to transfer prescriptions. Patient asking if provider would send prescriptions to [facility] pharmacy in [place]. Pended 90 day request for review. AAMIR [...] states she will be coming back to [place]. Is just in [place] for a few months to help out her son. 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 - xxgrytbmsqg-teyucetew-h ilanter (TRELEGY ELLIPTA) 200-62.5-25 mcg inhalation powder Inhale 1 Puff as instructed once daily. Problem List As Of Date 09/25/2023 Noted Resolved Essential hypertension [I10] 12/14/2015 Recurrent major depress (more content not included)... Normal [facility] CNCOon 09-06-2023 CNCO Letter Text Normal [facility] CNPNon 06-13-2023 LINDAN Telephone (TREV) STEVEN KOENIG ([id number]) 1955 F Date Time Provider Department 06/13/23 [facility] PROVIDER TREV During your visit today, we recorded the following information about you: Elizabeth Ly Ma 06/13/2023 4:26 PM Signed Patient contacted via telephone regarding upcoming NEW patient appointment with Dr. Harris on 06/14/23. Patient informed of the following: This is the [facility] calling regarding your upcoming appointment with Dr. Harris. To avoid a delay in your care, please bring any radiology images that have been done outside of the [facility] Systems on a disk to be [...] not fill disability or any other insurance-related forms/documentation Patient states she will be leaving for [...] 1 TABLET BY MOUTH EVERY DAY - bqdicxvtbfg-maefkzhfu-p ilanter (TRELEGY ELLIPTA) 200-62.5-25 mcg inhalation powder [...] minutes, none*09/28/2019 07/07/2020 PAD (peripheral artery disease) ([facility]) [I73.9] 09/28/2019 Anxiety and depression [F41.9, F32.A] 10/06/2019 Hypomagnesemia [E83.42] 10/22/2019 10/23/2019 Asthma [J45.909] 07/07/2020 07/07/2020 Prediabetes [R73.03] 02/04/2021 Chest pain [R07.9] 05/08/2021 Other chest pain [R07.89] 05/08/2021 Stenosis of carotid artery [I65.29] 05/08/2021 Mixed hyperlipidemia [E78.2] 05/08/2021 Abnormal stress test [R94.39] 08/26/2021 Dyspnea on exertion [R06.09] 08/26/2021 Coronary artery disease involving round valley tolbert*09/27/2021 Lung nodule [R91.1] 08/31/2022 History of hemoptysis [Z87.898] 11/20/2022 Encounter Status:Closed by ELIZABETH LY MA on 06/13/23 [facility] 06-10-2023 CNPN Telephone (INTMWS) STEVEN KOENIG ([id number]) 1955 F Date Time Provider Department 06/10/23 [...] to be taking. Please call her at [phone]. Ulises Hermosillo MD 06/13/2023 1:59 AM Signed [...] 1 TABLET BY MOUTH EVERY DAY - ynhloitjpav-dxdzircmk-u ilanter (TRELEGY ELLIPTA) 200-62.5-25 mcg inhalation powder [...] exertion [R06.09] 08/26/2021 Coronary artery disease involving round [place] tolbert*09/27/2021 Lung nodule [R91.1] 08/31/2022 History of hemoptysis [Z87.898] 11/20/2022 Encounter Status:Closed by IRENA CANTOR LPN on 06/13/23 [facility]10[facility]20[facility]EV[facility] KO[facility] ([id number]) 1955 F Date Time Provider Department 05/10/23 ULISES HERMOSILLO INTWS During your visit today, we recorded the following information about you: Christina Franco RN 05/10/2023 1:00 PM Signed Patient calling and asking about lab results as well as x ray results to back. Please review and advise, AAMIR Diego APRN.SUPERVISOR [employer] 05/10/2023 1:12 PM Signed Lipids are not [...] referral to pain management. Oly Smith APRN.LINDA Barthi Yehuda Granados 05/10/2023 1:58 PM Signed Left message to call office. 05/10/2023 1:58 PM Hyacinth Suero LPN 05/10/2023 3:02 PM Signed Spoke with pt gave information provided. P[t voices understanding. Will try cholesterol med uses [facility] [place]. Please assist in scheduling with physical therapy and pain management. Allergies As of Date: 05/10/2023 (No Known Allergies) Date Reviewed: 05/09/2023 Reviewed by: Mely Griffin PA-C - Fully Assessed Reason for Visit: Results [95] Primary Visit Diagnosis:Radiculopathy , lumbar region [M54.16] Other Visit Diagnosis:Chronic midline low back pain with sciatica, sciatica laterality unspecified [M54.40, G89.29] Order(s):CONSULT TO PAIN MGT [406467] Order #: [id number]: 1 FUTURE rosuvastatin (CRESTOR) 5 mg tabletTake 1 tablet by mouth daily at bedtime.Disp: 30 tabletRfl: 2 CONSULT TO PHYSICAL THERAPY [9032] Order #: [id number]: 1 FUTURE Prescriptions as of 05/13/2023 - rosuvastatin (CRESTOR) 5 mg tablet Take 1 tablet by mouth daily at bedtime. - isosorbide mononitrate ER (IMDUR) 30 mg 24 hr tablet TAKE 1 TABLET BY MOUTH EVERY DAY - traZODone (DESYREL) 100 mg tablet Take 2 tablets by mouth daily at bedtime. - lfxrbiqhqsx-fulqlksel-v ilanter (TRELEGY ELLIPTA) 200-62.5-25 mcg inhalation powder [...] exertion [R06.09] 08/26/2021 Coronary artery disease involving round [place] tolbert*09/27/2021 Lung nodule [R91.1] 08/31/2022 History of hemoptysis [Z87.898] 11/20/2022 Prescriptions ordered this encounter Disp Refills Start End ROSUVASTATIN 5 MG TABLET 30 t* 2 05/13/2023 Route: ORAL Sig: Take 1 tablet by mouth daily at bedtime. Encounter Status:Closed by CHRISTINA FRANCO on 05/13/23 [facility] XR Lumbar spine 3 Viewson IMPRESSION: Lumbar spine degenerative changes with L4-5 disc space narrowing. School Laboratory Technician: SRAVANI Transcribe Date/Time: May 10 2023 11:59A Dictated by : KARMEN MOSLEY MD This examination was interpreted and the report reviewed and electronically signed by: KARMEN MOSLEY MD on May 10 2023 12:02PM [facility] DIVISION OF RADIOLOGY * * *Final Report* [...] spine are presented. FINDINGS: There are five frg-veg-sbyeomv lumbar vertebrae. No fracture or subluxations are [...] spine are presented. FINDINGS: There are five rtt-hiz-sfjofhn lumbar vertebrae. No fracture or subluxations are noted. Right-sided curvature/dextroscolios is is noted. There is L4-5 disc space narrowing. There is mild to moderate osteophyte formation. Others: There are vascular calcifications. A right-sided iliac vascular stent is noted. IMPRESSION IMPRESSION: Lumbar spine degenerative changes with L4-5 disc space narrowing. School Laboratory Technician: SARVANI Transcribe Date/Time: May 10 2023 11:59A Dictated by : KARMEN MOSLEY MD This examination was interpreted and the report reviewed and electronically signed by: KARMEN MOSLEY MD on May 10 2023 12:02PM [facility] XR Lumbar spine 3 ViewsOrder ed By: [facility] Provider on 05-10-2023 [facility] CNOVon 05-09-2023 CNOV Office Visit (PULMWS ) STEVEN KOENIG ([id number]) 1955 F Date Time Provider Department 05/09/23 [...] HISTORY Diagnosis Date Acute pancreatitis 2010 [facility] Matthews Alcohol use disorder 01/18/2016 [facility] Anxiety 12/14/2015 Bipolar affective disorder, currently active ([facility]) 01/18/2016 Dr[facility] Chronic bronchitis ([facility]) 07/26/2016 Closed skull fracture ([facility]) 1994 [facility] Coronary artery disease DDD (degenerative disc disease), cervical Endometriosis 2007 Essential hypertension 12/14/2015 GERD (gastroesophageal reflux disease) 03/13/2019 History of colon polyps History of gastric ulcer 12/14/2015 HLD (hyperlipidemia) Injury of left facial nerve 1994 PAD (peripheral artery disease) ([facility]) 09/28/2019 Recurrent major depression in partial remission ([facility]) 12/14/2015 S/P drug eluting coronary stent placement 08/25/2021 LAD and Dg2 Spinal stenosis Allergies: No Known Allergies isosorbide mononitrate ER (IMDUR) 30 mg 24 hr tablet TAKE 1 TABLET BY MOUTH EVERY DAY traZODone (DESYREL) 100 mg tablet Take 2 tablets by mouth daily at bedtime. voljqyxueak-fooxoaknq-b ilanter (TRELEGY ELLIPTA) 200-62.5-25 mcg inhalation powder [...] NERVE DECOMPRESSION (more content not included)... Normal [facility] CBC W Auto Differential pane l (Bld)on 05-08-2023 Basophils (Bld) [#/Vol] 0.08 10*3/uL <0.11 k/uL [facility] Basophils/100 WBC (Bld) 1.0 % [facility] Differential cell count method Nom (Bld) Auto [facility] Eosinophils (Bld) [#/Vol] 0.19 10*3/uL <0.46 k/uL [facility] Eosinophils/100 WBC (Bld) 2.3 % [facility] Erythrocyte distribution width (RBC) [Ratio] 15.4 % High 11.5 - 15.0 % [facility] Hematocrit (Bld) [Volume fraction] 46.9 % High 36.0 - 46.0 % [facility] Hemoglobin (Bld) [Mass/Vol] 14.6 g/dL 11.5 - 15.5 g/dL [facility] Immature granulocytes (Bld) [#/Vol] <0.10 k/uL [facility] Immature granulocytes/100 WBC (Bld) 0.2 % [facility] Lymphocytes (Bld) [#/Vol] 2.23 10*3/uL 1.00 - 4.00 k/uL [facility] Lymphocytes/100 WBC (Bld) 27.3 % [facility] MCH (RBC) [Entitic mass] 30.7 pg 26.0 - 34.0 pg [facility] MCHC (RBC) [Mass/Vol] 31.1 g/dL 30.5 - 36.0 g/dL [facility] MCV (RBC) [Entitic vol] 98.5 fL 80.0 - 100.0 fL [facility] Monocytes (Bld) [#/Vol] 0.71 10*3/uL <0.87 k/uL [facility] Monocytes/100 WBC (Bld) 8.7 % [facility] Neutrophils (Bld) [#/Vol] 4.94 10*3/uL 1.45 - 7.50 k/uL [facility] Neutrophils/100 WBC (Bld) 60.5 % [facility] Nucleated RBC (Bld) [#/Vol] <0.01 k/uL [facility] Nucleated RBC/100 WBC (Bld) [Ratio] 0.0 /100 WBC [facility] Platelet mean volume (Bld) [Entitic vol] 10.5 fL 9.0 - 12.7 fL [facility] Platelets (Bld) [#/Vol] 408 10*3/uL High 150 - 400 k/uL [facility] RBC (Bld) [#/Vol] 4.76 10*6/uL 3.90 - 5.2 0 m/uL [facility] WBC (Bld) [#/Vol] 8.17 10*3/uL 3.70 - 11.00 k/uL [facility] Basophils (Bld) [#/Vol] 0.08 10*3/uL Normal <0.11 [facility] Comment on above: Order Comment: Speci men Type: BLOOD SPECIMENOrdering Facility: [facility] Address: [address] [address] Performed By: #### 5 7021-8 ####[facility] LABCLIA [id number] [address] [place] Basophils/100 WBC (Bld) 1.0 % Normal [facility] Comment on above: Order Comment: Speci men Type: BLOOD SPECIMENOrdering Facility: [facility] Address: [address] [place] [address] Performed By: #### 5 7021-8 ####[facility] LABCLIA [id number] [place] [address] [place] Differential cell count method Nom (Bld) Auto Normal [facility] Comment on above: Order Comment: Speci men Type: BLOOD SPECIMENOrdering Facility: [facility] Address: [address] Performed By: #### 5 7021-8 ####[facility] LABCLIA [id number] [place] [address] [place] Eosinophils (Bld) [#/Vol] 0.19 10*3/uL Normal <0.46 [facility] Comment on above: Order Comment: Speci men Type: BLOOD SPECIMENOrdering Facility: [facility] Address: [address] [address] Performed By: #### 5 7021-8 ####[facility] LABCLIA [id number] [place] [address] [place] Eosinophils/100 WBC (Bld) 2.3 % Normal [facility] Comment on above: Order Comment: Speci men Type: BLOOD SPECIMENOrdering Facility: [facility] Address: [address] Performed By: #### 5 7021-8 ####[facility] LABCLIA [id number] [place] [address] [place] Erythrocyte distribution width (RBC) [Ratio] 15.4 % High 11.5-15.0 [facility] Comment on above: Order Comment: Speci men Type: BLOOD SPECIMENOrdering Facility: [facility] [facility] Address: [address] Performed By: #### 5 7021-8 ####[facility] LABCLIA [id number] [place] [address] [place] Hematocrit (Bld) [Volume fraction] 46.9 % High 36.0-46.0 [facility] Comment on above: Order Comment: Speci men Type: BLOOD SPECIMENOrdering Facility: [facility] Address: [address] [place], [place] [address] Performed By: #### 5 7021-8 ####[facility] LABCLIA [id number] [place] [address] [place] Hemoglobin (Bld) [Mass/Vol] 14.6 g/dL Normal 11.5-15.5 [facility] Comment on above: Order Comment: Speci men Type: BLOOD SPECIMENOrdering Facility: [facility] Address: [address] [place] [address] Performed By: #### 5 7021-8 ####[facility] LABCLIA [id number] [place] [address] [place] Immature granulocytes (Bld) [#/Vol] 10*3/uL Normal <0.10 [facility] Comment on above: Order Comment: Speci men Type: BLOOD SPECIMENOrdering Facility: [facility] Address: [address] [place] [address] Performed By: #### 5 7021-8 ####[facility] LABCLIA [id number] [place] [address] [place] Immature granulocytes/100 WBC (Bld) 0.2 % Normal [facility] Comment on above: Order Comment: Speci men Type: BLOOD SPECIMENOrdering Facility: [facility] Address: [address] [place] [address] Performed By: #### 5 7021-8 ####[facility] LABCLIA [id number] [place] [address] [place] Lymphocytes (Bld) [#/Vol] 2.23 10*3/uL Normal 1.00-4.00 [facility] Comment on above: Order Comment: Speci men Type: BLOOD SPECIMENOrdering Facility: [facility] Address: [address] [place], [place] [address] Performed By: #### 5 7021-8 ####[facility] LABCLIA [id number] [place] [address] [place] Lymphocytes/100 WBC (Bld) 27.3 % Normal [facility] Comment on above: Order Comment: Speci men Type: BLOOD SPECIMENOrdering Facility: [facility] Address: [address] Performed By: #### 5 7021-8 ####[facility] [id number] [address] [place] MCH (RBC) [Entitic mass] 30.7 pg Normal 26.0-34.0 [facility] Comment on above: Order Comment: Speci men Type: BLOOD SPECIMENOrdering Facility: [facility] Address: [address] Performed By: #### 5 7021-8 ####[facility] [id number] [address] [place] MCHC (RBC) [Mass/Vol] 31.1 g/dL Normal 30.5-36.0 [facility] Comment on above: Order Comment: Speci men Type: BLOOD SPECIMENOrdering Facility: [facility] Address: [address] Performed By: #### 5 7021-8 ####[facility] [id number] [address] [place] MCV (RBC) [Entitic vol] 98.5 fL Normal 80.0-100.0 [facility] Comment on above: Order Comment: Speci men Type: BLOOD SPECIMENOrdering Facility: [facility] Address: [address] Performed By: #### 5 7021-8 ####[facility] [id number] [place] [address] [place] Monocytes (Bld) [#/Vol] 0.71 10*3/uL Normal <0.87 [facility] Comment on above: Order Comment: Speci men Type: BLOOD SPECIMENOrdering Facility: [facility] Address: [address] [place], [place] [address] Performed By: #### 5 7021-8 ####[facility] LABCLIA [id number] [place] [address] [place] Monocytes/100 WBC (Bld) 8.7 % Normal [facility] Comment on above: Order Comment: Speci men Type: BLOOD SPECIMENOrdering Facility: [facility] Address: [address] [place], [place] [address] Performed By: #### 5 7021-8 ####[facility] LABCLIA [id number] [place] [address] [place] Neutrophils (Bld) [#/Vol] 4.94 10*3/uL Normal 1.45-7.50 [facility] Comment on above: Order Comment: Speci men Type: BLOOD SPECIMENOrdering Facility: [facility] Address: [address] [place], [place] [address] Performed By: #### 5 7021-8 ####[facility] LABCLIA [id number] [place] [address] [place] Neutrophils/100 WBC (Bld) 60.5 % Normal [facility] Comment on above: Order Comment: Speci men Type: BLOOD SPECIMENOrdering Facility: [facility] Address: [address] [place], [place] [address] Performed By: #### 5 7021-8 ####[facility] LABCLIA [id number] [place] [address] [place] Nucleated RBC (Bld) [#/Vol] 10*3/uL Normal <0.01 [facility] Comment on above: Order Comment: Speci men Type: BLOOD SPECIMENOrdering Facility: [facility] Address: [address] [place], [place] [address] Performed By: #### 5 7021-8 ####[facility] LABCLIA [id number] [place] [address] [place] Nucleated RBC/100 WBC (Bld) [Ratio] 0.0 /100 WBC Normal [facility] Comment on above: Order Comment: Speci men Type: BLOOD SPECIMENOrdering Facility: [facility] Address: [address] [place], [place] [address] Performed By: #### 5 7021-8 ####[facility] LABCLIA [id number] [place] [address] [place] Platelet mean volume (Bld) [Entitic vol] 10.5 fL Normal 9.0-12.7 [facility] Comment on above: Order Comment: Speci men Type: BLOOD SPECIMENOrdering Facility: [facility] Address: [address] [place], [place] [address] Performed By: #### 5 7021-8 ####[facility] LABCLIA [id number] [place] [address] [place] Platelets (Bld) [#/Vol] 408 10*3/uL High 150-400 [facility] Comment on above: Order Comment: Speci men Type: BLOOD SPECIMENOrdering Facility: [facility] Address: [address] [place], [place] [address] Performed By: #### 5 7021-8 ####[facility] LABCLIA [id number] [place] [address] [place] RBC (Bld) [#/Vol] 4.76 10*6/uL Normal 3.90-5.20 [facility] Comment on above: Order Comment: Speci men Type: BLOOD SPECIMENOrdering Facility: [facility] Address: [address] [place], [place] [address] Performed By: #### 5 7021-8 ####[facility] LABCLIA [id number] [place] [address] [place] WBC (Bld) [#/Vol] 8.17 10*3/uL Normal 3.70-11.00 [facility] Comment on above: Order Comment: Speci men Type: BLOOD SPECIMENOrdering Facility: [facility] Address: [address] [place] [address] Performed By: #### 5 7021-8 ####[facility] LABCLIA [id number] [place] [address] [place] [facility] CNOVon 05-08-2023 CNOV Office Visit (INTMWS ) STEVEN KOENIG ([id number]) 1955 F Date Time Provider Department 05/08/23 12:20 PM OLDEROLY INTMWS During your visit today, we recorded the following information about you: Pulse Respiration Blood pressure Weight 90/minute 20/minute 134/88 56.2 kg 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 Angie [facility] Anxiety 12/14/2015 Bipolar affective disorder, currently active ([facility]) 01/18/2016 Dr. Angie Jones, [facility] Chronic bronchitis ([facility]) 07/26/2016 Closed skull fracture ([facility]) 1994 [facility], [facility] Coronary artery disease DDD (degenerative disc disease), cervical Endometriosis 2007 Essential hypertension 12/14/2015 GERD (gastroesophageal reflux disease) 03/13/2019 History of colon polyps History of gastric ulcer 12/14/2015 HLD (hyperlipidemia) Injury of left facial nerve 1994 PAD (peripheral artery disease) ([facility]) 09/28/2019 Recurrent major depression in partial remission ([facility]) 12/14/2015 S/P drug eluting coronary stent [...] TOTAL FACIAL NERVE DECOMPRESSION AND/REPAIR Left 1989 [facility] Patient has no known allergies. [...] 2 tablets by mouth daily at bedtime. fhwnmlqrnmc-xvihjhvpw-e ilanter (TRELEGY ELLIPTA) 200-62.5-25 mcg inhalation powder [...] daily. Ap (more content not included)... Normal [facility] Comprehensive metabolic 2000 panelon 05-08-2023 Albumin [Mass/Vol] 4.2 g/dL Normal 3.9-4.9 [facility] Comment on above: Order Comment: Speci men Type: BLOOD SPECIMENOrdering Facility: [facility] Address: [address] [place] [address] Performed By: #### 2 4323-8, LIPNF ####[facility] LABCLIA [id number] [place] [address] [place] ALP [Catalytic activity/Vol] 86 U/L Normal 34-123 [facility] Comment on above: Order Comment: Speci men Type: BLOOD SPECIMENOrdering Facility: [facility] Address: [address] Performed By: #### 2 4323-8, LIPNF ####[facility] LABCLIA [id number] [address] [place] ALT [Catalytic activity/Vol] 12 U/L Normal 7-38 [facility] Comment on above: Order Comment: Speci men Type: BLOOD SPECIMENOrdering Facility: [facility] Address: [address] Performed By: #### 2 4323-8, LIPNF ####[facility] LABCLIA [id number] [place] [address] [place] Anion gap [Moles/Vol] 13 mmol/L Normal 9-18 [facility] Comment on above: Order Comment: Speci men Type: BLOOD SPECIMENOrdering Facility: [facility] Address: [address] Performed By: #### 2 4323-8, LIPNF ####[facility] LABCLIA [id number] [address] [place] AST [Catalytic activity/Vol] 15 U/L Normal 13-35 [facility] Comment on above: Order Comment: Speci men Type: BLOOD SPECIMENOrdering Facility: [facility] Address: [address] [place] [address] Performed By: #### 2 4323-8, LIPNF ####[facility] LABCLIA [id number] [place] [address] [place] Bilirubin [Mass/Vol] mg/dL Low 0.2-1.3 [facility] Comment on above: Order Comment: Speci men Type: BLOOD SPECIMENOrdering Facility: [facility] Address: [address] Performed By: #### 2 4323-8, LIPNF ####[facility] LABCLIA [id number] [place] [address] [place] Calcium [Mass/Vol] 9.3 mg/dL Normal 8.5-10.2 [facility] Comment on above: Order Comment: Speci men Type: BLOOD SPECIMENOrdering Facility: [facility] Address: [address] [place], [place] [address] Performed By: #### 2 4323-8, LIPNF ####[facility] LABCLIA [id number] [place] [address] [place] Chloride [Moles/Vol] 102 mmol/L Normal 97-105 [facility] Comment on above: Order Comment: Speci men Type: BLOOD SPECIMENOrdering Facility: [facility] Address: [address] [place] [address] Performed By: #### 2 4323-8, LIPNF ####[facility] LABCLIA [id number] [place] [address] [place] CO2 [Moles/Vol] 22 mmol/L Normal 22-30 [facility] Comment on above: Order Comment: Speci men Type: BLOOD SPECIMENOrdering Facility: [facility] Address: [address] [place], [place] [address] Performed By: #### 2 4323-8, LIPNF ####[facility] LABCLIA [id number] [place] [address] [place] Creatinine [Mass/Vol] 0.97 mg/dL High 0.58-0.96 [facility] Comment on above: Order Comment: Speci men Type: BLOOD SPECIMENOrdering Facility: [facility] Address: [address] [place] [address] Performed By: #### 2 4323-8, LIPNF ####[facility] LABCLIA [id number] [place] [address] [place] ESTIMATED GLOMERULAR FILTRATION RATE 64 mL/min/1.73m??? Normal >=60 [facility] Comment on above: Order Comment: [place] Type: BLOOD SPECIMENOrdering Facility: [facility] Address: [address] [place] [address] Result Comment: Johnna mated Glomerular Filtration Rate [...] GFR. Performed By: #### 2 4323-8, LIPSEGUNDO ####[facility] LABCLIA [id number] [place] [address] [place] Glucose [Mass/Vol] 76 mg/dL Normal 74-99 [facility] Comment on above: Order Comment: [place] Type: BLOOD SPECIMENOrdering Facility: [facility] Address: [address] [place] [address] Result Comment: The [place] Diabetes Association (ADA) provides guidance for cutoff [...] Standards of Medical Care in Diabetes 2016, [place] [employer]. Diabetes Care. 2016.39(Suppl 1). Performed By: #### 2 4323-8, LIPSEGUNDO ####[facility] LABCLIA [id number] [place] [address] [place] Potassium [Moles/Vol] 5.3 mmol/L High 3.7-5.1 [facility] Comment on above: Order Comment: [place] Type: BLOOD SPECIMENOrdering Facility: [facility] Address: [address] Performed By: #### 2 4323-8, LIPNF ####[facility] LABCLIA [id number] [place] [address] [place] Protein [Mass/Vol] 6.9 g/dL Normal 6.3-8.0 [facility] Comment on above: Order Comment: Speci men Type: BLOOD SPECIMENOrdering Facility: [facility] Address: [address] Performed By: #### 2 4323-8, LIPNF ####[facility] LABCLIA [id number] [place] [address] [place] Sodium [Moles/Vol] 137 mmol/L Normal 136-144 [facility] Comment on above: Order Comment: Speci men Type: BLOOD SPECIMENOrdering Facility: [facility] Address: [address] [place], [place] [address] Performed By: #### 2 4323-8, LIPNF ####[facility] LABCLIA [id number] [place] [address] [place] Urea nitrogen [Mass/Vol] 13 mg/dL Normal 7-21 [facility] Comment on above: Order Comment: Speci men Type: BLOOD SPECIMENOrdering Facility: [facility] Address: [address] Performed By: #### 2 4323-8, LIPNF ####[facility] LABCLIA [id number] [place] [address] [place] LIPID PANEL, NONFASTINGon Cholesterol [Mass/Vol] 232 mg/dL High <200 [facility] Comment on above: Order Comment: Speci men Type: BLOOD SPECIMENOrdering Facility: [facility] Address: [address] [place] [address] Result Comment: <200 mg/dL, Desirable 200-239 mg/dL, Borderline high >239 mg/dL, High Performed By: #### 2 4323-8, LIPNF ####[facility] LABCLIA [id number] [address] HDL CHOLESTEROL, NF 67 mg/dL Normal >39 [facility] Comment on above: Order Comment: Speci men Type: BLOOD SPECIMENOrdering Facility: [facility] Address: [address] [place] [address] Result Comment: 40-5 9 mg/dL, Acceptable >59 mg/dL, High: Negative risk factor for coronary heart disease <40 mg/dL, Low: Positive risk factor for coronary heart disease Performed By: #### 2 4323-8, LIPNF ####[facility] LABCLIA [id number] [address] LDL CHOLESTEROL, NF 143 mg/dL High <100 [facility] Comment on above: Order Comment: [facility] Type: BLOOD SPECIMENOrdering Facility: [facility] Address: [address] [place] [address] Result Comment: <100 mg/dL, Optimal 100-129 mg/dL, Near optimal/above optimal 130-159 mg/dL, Borderline high 160-189 mg/dL, High >189 mg/dL, Very high Secondary prevention optimal LDL Cholesterol levels are recommended to be < 70 mg/dL Performed By: #### 2 4323-8, LIPNF ####[facility] LABCLIA [id number] [address] LDL/HDL RATIO, NF 2.13 mg/dL Normal <2.54 [facility] Comment on above: Order Comment: Speci men Type: BLOOD SPECIMENOrdering Facility: [facility] Address: [address] [place] [address] Result Comment: Refe rence: 1. National Cholesterol Education Program ATP III Guideline At-A-Glance Quick Desk Reference: National Heart, Lung, and Blood [place]. National Institutes of Health. 2001: NIH Publication No. 01-3305. 2. An International Atherosclerosis Society position paper: global recommendations for the management of dyslipidemia: executive summary, Atherosclerosis. 2014: 232(2):410-413. Performed By: #### 2 4323-8, LIPNF ####[facility] LABCLIA [id number] [address] OF [facility] NON HDL CHOL, NF 165 mg/dL High <130 [facility] Comment on above: Order Comment: Speci men Type: BLOOD SPECIMENOrdering Facility: [facility] Address: [address] [place] [address] Result Comment: <130 mg/dL, Optimal 130-159 mg/dL, Near optimal/above optimal 160-189 mg/dL, Borderline high 190-219 mg/dL, High >219 mg/dL, Very high Secondary prevention optimal non HDL Cholesterol levels are recommended to be <100 mg/dL Performed By: #### 2 4323-8, LIPNF ####[facility] LABCLIA [id number] [address] OF [facility] T CHOL/HDL RATIO NF 3.46 mg/dL Normal <5.10 [facility] Comment on above: Order Comment: Speci men Type: BLOOD SPECIMENOrdering Facility: [facility] Address: [address] [place] [address] Performed By: #### 2 4323-8, LIPNF ####[facility] LABCLIA [id number] [address] [place] TRIGLYCERIDES, NF 108 mg/dL Normal <150 [facility] Comment on above: Order Comment: Speci men Type: BLOOD SPECIMENOrdering Facility: [facility] Address: [address] [place] [address] Result Comment: <150 mg/dL, Normal 150-199 mg/dL, Borderline high 200-499 mg/dL, High >499 mg/dL, Very high Performed By: #### 2 4323-8, LIPNF ####[facility] LABCLIA [id number] [address] STATES OF [facility] VLDL CHOLESTEROL, NF 22 mg/dL Normal <30 [facility] Comment on above: Order Comment: Speci men Type: BLOOD SPECIMENOrdering Facility: [facility] Address: [address] [place] [place] [id number] Performed By: #### 2 4323-8, LIPNF ####[facility] LABCLIA [id number] [address] [place] XR LUMBAR 3V AP/LAT/L5-S1on 05-08-2023 XR LUMBAR [...] spine are presented. FINDINGS: There are five wcf-qvz-zymrkaz lumbar vertebrae. No fracture or subluxations are noted. Right-sided curvature/dextroscolios is is noted. There is L4-5 disc space narrowing. There is mild to moderate osteophyte formation. Others: There are vascular calcifications. A right-sided iliac vascular stent is noted. IMPRESSION: Lumbar spine degenerative changes with L4-5 disc space narrowing. School Laboratory Technician: PSCB Transcribe Date/Time: May 10 2023 11:59A Dictated by : KARMEN MOSLEY MD This examination was interpreted and the report reviewed and electronically signed by: KARMEN MOSLEY MD on May 10 2023 12:02PM EST [id number] Normal [facility] XR Lumbar spine 3 Viewson Radiology Study observation (narrative) [facility] CNOVon 04-02-2023 CNOV Office Visit (VASSWS ) RUBI KOENIGELE Fidencio ([id number]) 1955 F Date Time Provider Department 04/02/23 [...] [175] Primary Visit Diagnosis:PAD (peripheral artery disease) ([facility]) [I73.9] Order(s):PVR LEG [facility] [[id number]] Order #: [id number] FUTURE Prescriptions as of 04/02/2023 - isosorbide mononitrate ER (IMDUR) 30 mg 24 hr tablet TAKE 1 TABLET BY MOUTH EVERY DAY - predniSONE (DELTASONE) 10 mg tablet TAKE TWO DAILY FOR 5 DAYS THEN ONE DAILY FOR 10 DAYS - traZODone (DESYREL) 100 mg tablet Take 2 tablets by mouth daily at bedtime. - dbdvahycbps-jjwsolxbj-p ilanter (TRELEGY ELLIPTA) 200-62.5-25 mcg inhalation powder [...] exertion [R06.09] 08/26/2021 Coronary artery disease involving [place] tolbert*09/27/2021 Lung nodule [R91.1] 08/31/2022 History of hemoptysis [Z87.898] 11/20/2022 Encounter Status:Closed by DORON SELF on 04/02/23 Normal [facility] PVR ANK/LYONS/TOE [facility] on 04-02-2023 PVR ANK/LYONS/TOE [facility] Non-Invasive Vascular Laboratory [facility] Lower Extremity Arterial Physiology Study Bilateral/Complete Date [...] disease at rest. Technologist: Becky Nazario RVT, RDWV Ordering physician: DORON SELF Interpreting physician: MALINDA Vitale DO Final [employer] [facility] : [id number] [id number] See Link below for Image Normal [facility] Basic Metabolic Panel Reflex Mgon 01-07-2023 Anion gap [Moles/Vol] 5 mmol/L Low 7-16 [facility] Calcium [Mass/Vol] 8.6 mg/dL Normal 8.6-10.2 [facility] Chloride [Moles/Vol] 95 mmol/L Low 98-107 [facility] CO2 [Moles/Vol] 32 mmol/L High 22-29 [facility] Creatinine [Mass/Vol] 0.8 mg/dL Normal 0.5-1.0 [facility] GFR Calculated >60 Normal >=60 [facility] Comment on above: Result Comment: Jimbo [...] secretion. Glucose [Mass/Vol] 143 mg/dL High 74-99 [facility] Magnesium [Moles/Vol] 6.2 mmol/L High 3.5-5.0 [facility] Comment on above: Result Comment: Spec imen is moderately Hemolyzed. Result may be artificially increased. Sodium [Moles/Vol] 132 mmol/L Normal 132-146 [facility] Urea nitrogen [Mass/Vol] 26 mg/dL High 6-23 [facility] Basic Metabolic Panel w/ Ref wu to MGon 01-07-2023 Anion gap [Moles/Vol] 5 mmol/L Low 7 - 16 mmol/L [facility] Calcium [Mass/Vol] 8.6 mg/dL 8.6 - 10. 2 mg/dL [facility] Chloride [Moles/Vol] 95 mmol/L Low 98 - 10 7 mmol/L [employer] CO2 [Moles/Vol] 32 mmol/L High 22 - 29 mmol/L [facility] [employer] Creatinine [Mass/Vol] 0.8 mg/dL 0.5 - 1.0 mg/dL [facility] GFR/1.73 sq M.predicted MDRD (S/P/Bld) [Vol rate/Area] mL/min/1.73 60 - PINF mL/min/1.73 [facility] Comment on above: Pediatric calculator link [email or web address]://www.kidney.org/professionals/kdoqi/gfr_calculatorped [...] 143 mg/dL High 74 - 99 mg/dL [facility] Interpretation and review of laboratory results Abnormal [facility] Potassium [Moles/Vol] 6.2 mmol/L High 3.5 - 5.0 mmol/L [facility] Comment on above: Specimen is moderate ly Hemolyzed. Result may be artificially increased. Sodium [Moles/Vol] 132 mmol/L 132 - 146 mmol/L [facility] Urea nitrogen (BldV) [Mass/Vol] 26 mg/dL High 6 - 23 mg/dL [facility] CBC With Platelet and Differ entialon 01-07-2023 Abs Imm Granulocytes 0.06 E9/L Normal [facility] Absolute Basophils 0.01 E9/L Normal 0.00-0.20 [facility] Absolute Eosinophils 0.01 E9/L Low 0.05-0.50 [facility] Absolute Lymphocytes 0.61 E9/L Low 1.50-4.00 [facility] Absolute Monocytes 0.29 E9/L Normal 0.10-0.95 [facility] Absolute Neutrophils 8.76 E9/L High 1.80-7.30 [facility] Basophils/100 WBC (Bld) 0.1 % Normal 0.0-2.0 [facility] Eosinophils/100 WBC (Bld) 0.1 % Normal 0.0-6.0 [facility] Hematocrit (Bld) [Volume fraction] 42.8 % Normal 34.0-48.0 [facility] Hemoglobin (Bld) [Mass/Vol] 13.5 g/dL Normal 11.5-15.5 [facility] Imm Granulocytes 0.6 % Normal 0.0-5.0 [facility] Lymphocytes/100 WBC (Bld) 6.3 % Low 20.0-42.0 [facility] MCH (RBC) [Entitic mass] 31.3 pg Normal 26.0-35.0 [facility] MCHC 31.5 % Low 32.0-34.5 [facility] MCV (RBC) [Entitic vol] 99.1 fL Normal 80.0-99.9 [facility] Monocytes/100 WBC (Bld) 3.0 % Normal 2.0-12.0 [facility] Neutrophils/100 WBC (Bld) 89.9 % High 43.0-80.0 [facility] Platelet Count 421 E9/L Normal 130-450 [facility] Platelet mean volume (Bld) [Entitic vol] 9.8 fL Normal 7.0-12.0 [facility] RBC 4.32 E12/L Normal 3.50-5.50 [facility] RDW 15.1 fL High 11.5-15.0 [facility] WBC 9.7 E9/L Normal 4.5-11.5 [facility] CBC with Auto Differentialon 01-07-2023 Basophils (Bld) [#/Vol] 0.01 10*3/uL [employer] Basophils/100 WBC (Bld) 0.1 % 0.0 - 2.0 % [facility] Eosinophils Absolute 0.[address] [facility] Eosinophils/100 WBC (Bld) 0.1 % 0.0 - 6.0 % [employer] [facility] [employer] [facility] Hematocrit (Bld) [Volume fraction] 42.8 % 34.0 - 48.0 % [facility] Hemoglobin (Bld) [Mass/Vol] 13.5 g/dL 11.5 - 15.5 g/dL [facility] Immature Granulocytes # 0.06 E9/L [facility] Immature granulocytes/100 WBC (Bld) 0.6 % 0.0 - 5.0 % [facility] Interpretation and review of laboratory results Abnormal [facility] Lymphocytes Absolute 0.61 Low [facility] Lymphocytes/100 WBC (Bld) 6.3 % Low 20.0 - 42.0 % [facility] MCH (RBC) [Entitic mass] 31.3 pg 26.0 - 35.0 pg [facility] MCHC (RBC) [Mass/Vol] 31.5 % Low 32.0 - 34.5 % [facility] MCV (RBC) [Entitic vol] 99.1 fL 80.0 - 99.9 fL [facility] Monocytes Absolute 0.29 [facility] Monocytes/100 WBC (Bld) 3.0 % 2.0 - 12.0 % [facility] Neutrophils Absolute 8.76 High [facility] Neutrophils/100 WBC (Bld) 89.9 % High 43.0 - 80.0 % [facility] Platelet distribution width (Bld) [Ratio] 15.1 fL High 11.5 - 15.0 fL [facility] Platelet mean volume (Bld) [Entitic vol] 9.8 fL 7.0 - 12.0 fL [facility] Platelets (Bld) [#/Vol] 421 10*3/uL [facility] RBC (Bld) [#/Vol] 4.32 10*6/uL [facility] WBC (Bld) [#/Vol] 9.7 10*3/uL [facility] Glucose Glucometer (BldC) [M ass/Vol]Ordered By: Dr. Teague on 01-07-2023 Glucose [Mass/Vol] 88 mg/dL 74-106 [facility] Comment on above: MANAGEMENT OF PATIEN T CARE PER NURSING PROTOCOL High Sensitivity Troponin To n 01-07-2023 High Sensitivity Troponin T 14 ng/L High 0-9 [facility] Comment on above: Result Comment: High Sensitivity Troponin values cannot be compared with other Troponin methodologies. Patients with high levels of Biotin oral intake (i.e. >5 mg/day) may have falsely decreased Troponin levels. Samples collected within 8 hours of biotin intake may require additional information for diagnosis. Troponinon 01-07-2023 Interpretation and review of laboratory results Abnormal [facility] Troponin, High Sensitivity 14 ng/L High 0 - 9 ng/L [facility] Comment on above: High Sensitivity Tro ponin values cannot be compared with other Troponin methodologies. Patients with high levels of Biotin oral intake (i.e. >5 mg/day) may have falsely decreased Troponin levels. Samples collected within 8 hours of biotin intake may require additional information for diagnosis. [facility] Bacteria identified Respirat ory culture Nom (Unsp spec)Ordered By: Dr. Luque on 01-06-2023 Respiratory Culture Streptococcus pneumoniae [facility] Absolute lymphocyte countOrd ered By: Dr. Luque on 01-03-2023 Lymphocytes Auto (Unsp spec) [#/Vol] 0.36 10*3/uL 0.83-4.51 [facility] Basophil percentageOrdered B y: Dr. Luque on 01-03-2023 Basophils/100 WBC (Bld) 0.6 % 0-1 [facility] Bilirubin [Mass/Vol] 0.20 mg/dL 0.20-1.00 [facility] Comment on above: For patients on eltr ombopag therapy, use of Dimension [place] TBIL is not recommended. Chloride [Moles/Vol] 112 mmol/L 98-107 [facility] Cholesterol [Mass/Vol] 225 mg/dL <200 [facility] Comment on above: <200 mg/dL Desirable 200-240 mg/dL Borderline >240 mg/dL High Risk Eosinophils/100 WBC (Bld) 0.0 % 0-5 [facility] Glucose [Mass/Vol] 236 mg/dL 74-106 [facility] Comment on above: Glucose result great er than or equal to 200 mg/dLsuggests DIABETES MELLITUS per A.D.A. criteria. Neutrophils (Bld) [#/Vol] 6.2 10*3/uL 2.0-7.7 [facility] Neutrophils/100 WBC (Bld) 92.4 % 47-70 [facility] Potassium [Moles/Vol] 4.3 mmol/L 3.5-5.1 [facility] Protein [Mass/Vol] 6.5 g/dL 6.4-8.2 [facility] Sodium [Moles/Vol] 141 mmol/L 136-145 [facility] Triglyceride [Mass/Vol] 63 mg/dL <199 [facility] Comment on above: The drugs N-Acetylcy steine and Metamizole may falsely depress this assay.Serum Triglycerides Reference Interval Normal <150 mg/dL Borderline high 150 - 199 mg/dL High 200 - 499 mg/dL Very High > or = 500 mg/dL WBC (Bld) [#/Vol] 6.7 10*3/uL 4.4-11.0 [facility] Blood erythrocytes count (nu mber/volume)Ordered By: Dr. Luque on 01-03-2023 RBC (Bld) [#/Vol] 4.25 10*6/uL 4.2-5.4 [facility] Blood hemoglobin measurement (mass/volume)Ordered By: Dr. Luque on 01-03-2023 Hemoglobin (Bld) [Mass/Vol] 13.4 g/dL 12.0-15.0 [facility] Blood lymphocytes/100 leukoc ytesOrdered By: Dr. Luque on 01-03-2023 Lymphocytes/100 WBC (Bld) 5.4 % 19-41 [facility] Blood manual differential co mment interpretation (narrative result)Ordered By: Dr. Luque on 01-03-2023 Manual differential comment Marquez (Bld) [Interp] SCANNED [facility] Blood monocytes/100 leukocyt esOrdered By: Dr. Luque on 01-03-2023 Monocytes/100 WBC (Bld) 0.9 % 0-10 [facility] Blood platelet mean volumeOr dered By: Dr. Luque on 01-03-2023 Platelet mean volume (Bld) [Entitic vol] 9.4 fL 6.2-12.0 [facility] Determination of erythrocyte mean corpuscular volume (MCV)Ordered By: Dr. Luque on 01-03-2023 MCV (RBC) [Entitic vol] 99.1 fL 81-99 [facility] Gram stain for investigation of transfusion reactionOrdered By: Dr. Luque on 01-03-2023 Microscopic observation Gram stain Nom (Unsp spec) [facility] Hematocrit Auto (Bld) [Volum e fraction]Ordered By: Dr. Luque on 01-03-2023 Hematocrit (Bld) [Volume fraction] 42.1 % 37-47 [facility] Laboratory - Chemistry and C hemistry - challengeOrdered By: Dr. Luque on 01-03-2023 ALP [Catalytic activity/Vol] 59 U/L 45-117 [facility] ALT [Catalytic activity/Vol] 19 U/L 13-56 [facility] CO2 [Moles/Vol] 25.0 mmol/L 21.0-32.0 [facility] Globulin (S) [Mass/Vol] 3.5 g/dL 2.2-4.2 [facility] Urea nitrogen/Creatinine [Mass ratio] 12.5 mg/mg 10-20 [facility] Laboratory - Hematology and Cell countsOrdered By: Dr. Luque on 01-03-2023 Erythrocyte distribution width (RBC) [Entitic vol] 57.1 fL 35.1-43.9 [facility] Erythrocyte distribution width (RBC) [Ratio] 15.7 % 11.6-14.6 [facility] Immature granulocytes/100 WBC (Bld) 0.700 % 0.0-0.9 [facility] Comment on above: IG% - Immature Granu locytes (promyelocytes, myelocytes and metamyelocytes) > 1% indicates that a LEFT SHIFT is Present. MCH (RBC) [Entitic mass] 31.5 pg 27.0-32.0 [facility] Nucleated RBC/100 WBC (Bld) [Ratio] 0 % 0-5 [facility] MCHC Auto (RBC) [Mass/Vol]Or dered By: Dr. Luque on 01-03-2023 MCHC (RBC) [Mass/Vol] 31.8 g/dL 32-36 [facility] No Panel InformationOrdered By: Dr. Luque on 01-03-2023 Estimated Creatinine Clearance Calc 61.40 ml/min [facility] Estimated GFR (MDRD) Amer 92 mL/min >60 [facility] Comment on above: GFR Calc Estimated GFR (MDRD) Non-Af Amer 76 mL/min >60 [facility] Comment on above: Non- GFR Calc Troponin I High Sensitivity 17 pg/mL 3.0-54.0 [facility] Comment on above: Please Note: New Elsa t Units and Gender Specific Reference Ranges. For more information see Policy Stat Procedure [place] High Sensitivity Troponin (TNIH) and attachments. Platelets bldOrdered By: Dr. Luque on 01-03-2023 Platelets (Bld) [#/Vol] 416 10*3/uL 150-450 [facility] Serum or plasma albumin giovanni urement (mass/volume)Ordered By: Dr. Luque on 01-03-2023 Albumin [Mass/Vol] 3.0 g/dL 3.2-5.0 [facility] Serum or plasma albumin/glob ulin mass ratioOrdered By: Dr. Luque on 01-03-2023 Albumin/Globulin [Mass ratio] 0.9 {ratio} 0.9-2.4 [facility] Serum or plasma calcium giovanni urement (mass/volume)Ordered By: Dr. Luque on 01-03-2023 Calcium [Mass/Vol] 8.1 mg/dL 8.5-10.1 [facility] Serum or plasma cholesterol in HDL measurement (mass/volume)Ordered By: Dr. Luque on 01-03-2023 Cholesterol in HDL [Mass/Vol] 98 mg/dL >40 [facility] Comment on above: The drugs N-Acetylcy steine and Metamizole may falsely depress this assay. Reference Range HDL <40 mg/dL Low HDL Cholesterol HDL >or= 60 mg/dL High HDL Cholesterol Serum or plasma cholesterol in VLDL measurement (mass/volume)Ordered By: Dr. Luque on 01-03-2023 Cholesterol in VLDL [Mass/Vol] 13 mg/dL 5-40 [facility] Serum or plasma creatinine m easurement (mass/volume)Ordered By: Dr. Luque on 01-03-2023 Creatinine [Mass/Vol] 0.80 mg/dL 0.55-1.02 [facility] Comment on above: The validity of the calculated GFR & GFRAA in patients over 70 years has not been determined. Clinical correlation is essential. Serum or plasma low density lipoprotein (LDL) cholesterol measurement (mass/volume)Ordered By: Dr. Luque on 01-03-2023 Cholesterol in LDL [Mass/Vol] 114 mg/dL 0-130 [facility] Serum or plasma urea nitroge n measurement (mass/volume)Ordered By: Dr. Luque on 01-03-2023 Urea nitrogen [Mass/Vol] 10 mg/dL 7-18 [facility] Thin prep Papanicolaou smear with manual screeningOrdered By: Dr. Luque on 01-03-2023 Thin prep Papanicolaou smear with manual screening 14 U/L 15-37 [facility] Thin prep Papanicolaou smear with manual screening 4 5-15 [facility] Whole blood hemoglobin A1c/t otal hemoglobin ratio (mass fraction)Ordered By: Dr. Sauer on 01-03-2023 HbA1c (Bld) [Mass fraction] 5.5 % 3.8-5.6 [facility] Comment on above: Normal < 5.7 % Predi abetic 5.7 - 6.4 % Diabetic >or= 6.5 % Please note range changes. Absolute lymphocyte countOrd ered By: Dr. Koroma on 01-02-2023 Lymphocytes Auto (Unsp spec) [#/Vol] 2.67 10*3/uL 0.83-4.51 [facility] Basophil percentageOrdered B y: Dr. Luque on 01-02-2023 Basophil percentage 3.6 mg/dL 2.5-4.9 [facility] Basophil percentageOrdered B y: Dr. Koroma on 01-02-2023 Basophils/100 WBC (Bld) 1.3 % 0-1 [facility] Bilirubin [Mass/Vol] 0.10 mg/dL 0.20-1.00 [facility] Comment on above: For patients on eltr ombopag therapy, use of Dimension [place] TBIL is not recommended. Chloride [Moles/Vol] 109 mmol/L 98-107 [facility] Eosinophils/100 WBC (Bld) 1.4 % 0-5 [facility] Glucose [Mass/Vol] 76 mg/dL 74-106 [facility] Neutrophils (Bld) [#/Vol] 3.6 10*3/uL 2.0-7.7 [facility] Neutrophils/100 WBC (Bld) 50.1 % 47-70 [facility] Potassium [Moles/Vol] 3.6 mmol/L 3.5-5.1 [facility] Protein [Mass/Vol] 7.3 g/dL 6.4-8.2 [facility] Sodium [Moles/Vol] 143 mmol/L 136-145 [facility] WBC (Bld) [#/Vol] 7.2 10*3/uL 4.4-11.0 [facility] Basophil percentage 0 SEEN /hpf 0-5 [facility] Bilirubin Test strip Ql (U)O rdered By: Dr. Koroma on 01-02-2023 Bilirubin Ql (U) Negative Negative [facility] Blood erythrocytes count (nu mber/volume)Ordered By: Dr. Koroma on 01-02-2023 RBC (Bld) [#/Vol] 4.42 10*6/uL 4.2-5.4 [facility] Blood hemoglobin measurement (mass/volume)Ordered By: Dr. Koroma on 01-02-2023 Hemoglobin (Bld) [Mass/Vol] 14.0 g/dL 12.0-15.0 [facility] Blood lymphocytes/100 leukoc ytesOrdered By: Dr. Koroma on 01-02-2023 Lymphocytes/100 WBC (Bld) 37.2 % 19-41 [facility] Blood monocytes/100 leukocyt esOrdered By: Dr. Koroma on 01-02-2023 Monocytes/100 WBC (Bld) 9.6 % 0-10 [facility] Blood platelet mean volumeOr dered By: Dr. Koroma on 01-02-2023 Platelet mean volume (Bld) [Entitic vol] 9.8 fL 6.2-12.0 [facility] Determination of erythrocyte mean corpuscular volume (MCV)Ordered By: Dr. Koroma on 01-02-2023 MCV (RBC) [Entitic vol] 99.3 fL 81-99 [facility] Hematocrit Auto (Bld) [Volum e fraction]Ordered By: Dr. Koroma on 01-02-2023 Hematocrit (Bld) [Volume fraction] 43.9 % 37-47 [facility] Ketones Test strip Ql (U)Ord ered By: Dr. Koroma on 01-02-2023 Ketones Ql (U) Negative Negative [facility] Laboratory - Chemistry and C hemistry - challengeOrdered By: Dr. Luque on 01-02-2023 Magnesium [Mass/Vol] 2.0 mg/dL 1.6-2.6 [facility] Laboratory - Chemistry and C hemistry - challengeOrdered By: Dr. Koroma on 01-02-2023 ALP [Catalytic activity/Vol] 63 U/L 45-117 [facility] ALT [Catalytic activity/Vol] 24 U/L 13-56 [facility] CO2 [Moles/Vol] 27.0 mmol/L 21.0-32.0 [facility] Globulin (S) [Mass/Vol] 3.9 g/dL 2.2-4.2 [facility] Lipase [Catalytic activity/Vol] 235 U/L 73-393 [facility] Urea nitrogen/Creatinine [Mass ratio] 13.7 mg/mg 10-20 [facility] Laboratory - Drug toxicology Ordered By: Dr. Koroma on 01-02-2023 Amphetamines Ql (U) Negative <1000 ng/mL [facility] Benzodiazepines Ql (U) Negative < 200 ng/mL [facility] Cannabinoids Screen Ql (U) Negative < 50 ng/mL [facility] Cocaine Ql (U) Negative < 300 ng/mL [facility] Opiates Ql (U) Negative < 300 ng/mL [facility] Laboratory - Hematology and Cell countsOrdered By: Dr. Koroma on 01-02-2023 Erythrocyte distribution width (RBC) [Entitic vol] 56.6 fL 35.1-43.9 [facility] Erythrocyte distribution width (RBC) [Ratio] 15.6 % 11.6-14.6 [facility] Immature granulocytes/100 WBC (Bld) 0.400 % 0.0-0.9 [facility] Comment on above: IG% - Immature Granu locytes (promyelocytes, myelocytes and metamyelocytes) > 1% indicates that a LEFT SHIFT is Present. MCH (RBC) [Entitic mass] 31.7 pg 27.0-32.0 [facility] Nucleated RBC/100 [facility] (Bld) [[facility]] 0 [facility] [Mass/Vol]Or dered By: Dr. Koroma on 01-02-2023 MCHC (RBC) [Mass/Vol] 31.9 g/dL 32-36 [facility] Mucus LM Ql (Urine sed)Order ed By: Dr. Koroma on 01-02-2023 Mucus Ql (Urine sed) 0 SEEN /hpf [facility] Nitrite Test strip Ql (U)Ord ered By: Dr. Koroma on 01-02-2023 Nitrite Ql (U) Negative Negative [facility] No Panel InformationOrdered By: Dr. Koroma on 01-02-2023 Estimated Creatinine Clearance Calc 61.40 ml/min [facility] Estimated GFR (MDRD) Amer 91 mL/min >60 [facility] Comment on above: GFR Calc Estimated GFR (MDRD) Non-Af Amer 76 mL/min >60 [facility] Comment on above: Non- GFR Calc Ethyl Alcohol Level 112.0 mg/dL [facility] Comment on above: The serum:whole bloo d ethanol ratio is approximately 1.14and varies slightly with hematocrit. Medical Alcohol reference interval and critical value innon-tolerant individuals; 50 - 100 Impairment 100 Intoxication 100 - 250 Severe Poisoning 250 - 400 Deep/possible fatal coma Troponin I High Sensitivity 17 pg/mL 3.0-54.0 [facility] Comment on above: Please Note: New Elsa t Units and Gender Specific Reference Ranges. For more information see Policy Stat Procedure [place] High Sensitivity Troponin (TNIH) and attachments. MDMA (Ecstasy) Screen Negative < 500 ng/mL [facility] Urine Barbiturates Screen Negative < 200 ng/mL [facility] Urine Drug Screen Comment [facility] Comment on above: CONFIRMATORY TESTING FOR ALL [...] Methadone Screen Negative < 300 ng/mL [facility] Platelets bldOrdered By: Dr. Koroma on 01-02-2023 Platelets (Bld) [#/Vol] 478 10*3/uL 150-450 [facility] Protein Test strip Ql (U)Ord ered By: Dr. Koroma on 01-02-2023 Protein Ql (U) Negative Negative [facility] Serum or plasma albumin giovanni urement (mass/volume)Ordered By: Dr. Koroma on 01-02-2023 Albumin [Mass/Vol] 3.4 g/dL 3.2-5.0 [facility] Serum or plasma albumin/glob ulin mass ratioOrdered By: Dr. Koroma on 01-02-2023 Albumin/Globulin [Mass ratio] 0.9 {ratio} 0.9-2.4 [facility] Serum or plasma calcium giovanni urement (mass/volume)Ordered By: Dr. Koroma on 01-02-2023 Calcium [Mass/Vol] 8.5 mg/dL 8.5-10.1 [facility] Serum or plasma creatinine m easurement (mass/volume)Ordered By: Dr. Koroma on 01-02-2023 Creatinine [Mass/Vol] 0.80 mg/dL 0.55-1.02 [facility] Comment on above: The validity of the calculated GFR & GFRAA in patients over 70 years has not been determined. Clinical correlation is essential. Serum or plasma urea nitroge n measurement (mass/volume)Ordered By: Dr. Koroma on 01-02-2023 Urea nitrogen [Mass/Vol] 11 mg/dL 7-18 [facility] Serum procalcitonin measurem entOrdered By: Dr. Luque on 01-02-2023 Procalcitonin [Mass/Vol] ng/mL 0.00-0.09 [facility] Comment on above: A procalcitonin (PCT ) [...] sed) 0-5 SEEN /hpf 5-10 [facility] Thin prep Papanicolaou smear with manual screeningOrdered By: Dr. Koroma on 01-02-2023 Thin prep Papanicolaou smear with manual screening 17 U/L 15-37 [facility] Thin prep Papanicolaou smear with manual screening 7 5-15 [facility] Urine blood detectionOrdered By: Dr. Koroma on 01-02-2023 RBC Ql (U) Negative Negative [facility] RBC Ql (U) 0 SEEN /hpf 0-5 [facility] Urine clarityOrdered By: Dr. Koroma on 01-02-2023 Clarity (U) Clear Clear [facility] Urine color determinationOrd ered By: Dr. Koroma on 01-02-2023 Color (U) Yellow Yellow [facility] Urine glucose detectionOrder ed By: Dr. Koroma on 01-02-2023 Glucose Ql (U) Normal mg/dl Normal [facility] Urine leukocyte esterase det ection by dipstickOrdered By: Dr. Koroma on 01-02-2023 Leukocyte esterase Test strip Ql (U) Negative Negative [facility] Urine pHOrdered By: Dr. Haider mark on 01-02-2023 pH (U) 6.0 [pH] 5.0 - 8.0 [facility] Urine phencyclidine (PCP) de tectionOrdered By: Dr. Koroma on 01-02-2023 Phencyclidine Ql (U) Negative < 25 ng/mL [facility] Urine sediment bacteria coun t by microscopy (number/high power field)Ordered By: Dr. Koroma on 01-02-2023 Bacteria LM.HPF (Urine sed) [#/Area] 0 /[HPF] None Seen [facility] Urine specific gravity measu rementOrdered By: Dr. Koroma on 01-02-2023 Specific gravity (U) [Rel density] 1.005 1.002-1.030 [facility] Urobilinogen Auto test strip Ql (U)Ordered By: Dr. Koroma on 01-02-2023 Urobilinogen Ql (U) Normal mg/dl Normal [facility] A1AT SerPl-mCncon 01-01-2023 Alpha 1 antitrypsin [Mass/Vol] 192 mg/dL Normal 90-200 [facility] Comment on above: Order Comment: Speci men Type: BLOOD SPECIMENOrdering Facility: [facility] Address: [address] [place] [address] Performed By: #### 1 825-9 ####[facility] LABIA [id number] [place] [address] [place] CBC W Auto Differential pane l (Bld)on 01-01-2023 Basophils (Bld) [#/Vol] 0.07 10*3/uL Normal <0.11 [facility] Comment on above: Order Comment: Speci men Type: BLOOD SPECIMENOrdering Facility: [facility] Address: [address] [place] [address] Performed By: #### 5 7021-8 ####[facility] LABCLIA [id number] [place] [address] [place] Basophils/100 WBC (Bld) 1.0 % Normal [facility] Comment on above: Order Comment: Speci men Type: BLOOD SPECIMENOrdering Facility: [facility] Address: [address] [place] [address] Performed By: #### 5 7021-8 ####[facility] LABIA [id number] [place] [address] [place] Differential cell count method Nom (Bld) Auto Normal [facility] Comment on above: Order Comment: Speci men Type: BLOOD SPECIMENOrdering Facility: [facility] Address: [address] [place], [place] [id number] Performed By: #### 5 7021-8 ####[facility] LABCLIA [id number] [place] [address] [place] Eosinophils (Bld) [#/Vol] 0.07 10*3/uL Normal <0.46 [facility] Comment on above: Order Comment: Speci men Type: BLOOD SPECIMENOrdering Facility: [facility] Address: [address] [place], [place] [id number] Performed By: #### 5 7021-8 ####[facility] LABIA [id number] [address] [place] Eosinophils/100 WBC (Bld) 1.0 % Normal [facility] Comment on above: Order Comment: Speci men Type: BLOOD SPECIMENOrdering Facility: [facility] Address: [address] [place], [place] [id number] Performed By: #### 5 7021-8 ####[facility] LABIA [id number] [place] [address] [place] Erythrocyte distribution width (RBC) [Ratio] 15.8 % High 11.5-15.0 [facility] Comment on above: Order Comment: Speci men Type: BLOOD SPECIMENOrdering Facility: [facility] Address: [address] [place], [place] [id number] Performed By: #### 5 7021-8 ####[facility] LABIA [id number] [place] [address] [place] Hematocrit (Bld) [Volume fraction] 44.4 % Normal 36.0-46.0 [facility] Comment on above: Order Comment: Speci men Type: BLOOD SPECIMENOrdering Facility: [facility] Address: [address] [place] [address] Performed By: #### 5 7021-8 ####[facility] LABCLIA [id number] [place] [address] [place] Hemoglobin (Bld) [Mass/Vol] 14.1 g/dL Normal 11.5-15.5 [facility] Comment on above: Order Comment: Speci men Type: BLOOD SPECIMENOrdering Facility: [facility] Address: [address] Performed By: #### 5 7021-8 ####[facility] LABCLIA [id number] [place] [address] [place] Immature granulocytes (Bld) [#/Vol] 10*3/uL Normal <0.10 [facility] Comment on above: Order Comment: Speci men Type: BLOOD SPECIMENOrdering Facility: [facility] Address: [address] [place], [place] [id number] Performed By: #### 5 7021-8 ####[facility] LABIA [id number] [place] [address] [place] Immature granulocytes/100 WBC (Bld) 0.3 % Normal [facility] Comment on above: Order Comment: Speci men Type: BLOOD SPECIMENOrdering Facility: [facility] Address: [address] [place], [place] [id number] Performed By: #### 5 7021-8 ####[facility] LABCLIA [id number] [place] [address] [place] Lymphocytes (Bld) [#/Vol] 1.67 10*3/uL Normal 1.00-4.00 [facility] Comment on above: Order Comment: Speci men Type: BLOOD SPECIMENOrdering Facility: [facility] Address: [address] Performed By: #### 5 7021-8 ####[facility] LABCLIA [id number] [address] [place] [facility] Lymphocytes/100 WBC (Bld) 23.3 % Normal [facility] Comment on above: Order Comment: Speci men Type: BLOOD SPECIMENOrdering Facility: [facility] Address: [address] [place] [address] Performed By: #### 5 7021-8 ####[facility] LABCLIA [id number] [address] [place] MCH (RBC) [Entitic mass] 32.0 pg Normal 26.0-34.0 [facility] Comment on above: Order Comment: Speci men Type: BLOOD SPECIMENOrdering Facility: [facility] Address: [address] [place] [address] Performed By: #### 5 7021-8 ####[facility] LABIA [id number] [address] [place] MCHC (RBC) [Mass/Vol] 31.8 g/dL Normal 30.5-36.0 [facility] Comment on above: Order Comment: Speci men Type: BLOOD SPECIMENOrdering Facility: [facility] Address: [address] [place], [place] [id number] Performed By: #### 5 7021-8 ####[facility] LABIA [id number] [address] [place] MCV (RBC) [Entitic vol] 100.9 fL High 80.0-100.0 C [facility] Comment on above: Order Comment: Speci men Type: BLOOD SPECIMENOrdering Facility: [facility] Address: [address] [place], [place] [address] Performed By: #### 5 7021-8 ####[facility] LABCLIA [id number] [place] [address] [place] Monocytes (Bld) [#/Vol] 0.91 10*3/uL High <0.87 [facility] Comment on above: Order Comment: Speci men Type: BLOOD SPECIMENOrdering Facility: [facility] Address: [address] Performed By: #### 5 7021-8 ####[facility] LABCLIA [id number] [address] [place] Monocytes/100 WBC (Bld) 12.7 % Normal [facility] Comment on above: Order Comment: Speci men Type: BLOOD SPECIMENOrdering Facility: [facility] Address: [address] Performed By: #### 5 7021-8 ####[facility] LABCLIA [id number] [place] [address] [place] Neutrophils (Bld) [#/Vol] 4.44 10*3/uL Normal 1.45-7.50 [facility] Comment on above: Order Comment: Speci men Type: BLOOD SPECIMENOrdering Facility: [facility] Address: [address] Performed By: #### 5 7021-8 ####[facility] LABCLIA [id number] [address] STATES OF [facility] Neutrophils/100 WBC (Bld) 61.7 % Normal [facility] Comment on above: Order Comment: Speci men Type: BLOOD SPECIMENOrdering Facility: [facility] Address: [address] Performed By: #### 5 7021-8 ####[facility] LABCLIA [id number] [place] [address] [place] Nucleated RBC (Bld) [#/Vol] 10*3/uL Normal <0.01 [facility] Comment on above: Order Comment: Speci men Type: BLOOD SPECIMENOrdering Facility: [facility] Address: [address] Performed By: #### 5 7021-8 ####[facility] LABCLIA [id number] [place] [address] [place] Nucleated RBC/100 WBC (Bld) [Ratio] 0.0 /100 WBC Normal [facility] Comment on above: Order Comment: Speci men Type: BLOOD SPECIMENOrdering Facility: [facility] Address: [address] [place] [address] Performed By: #### 5 7021-8 ####[facility] LABIA [id number] [place] [address] [place] Platelet mean volume (Bld) [Entitic vol] 10.1 fL Normal 9.0-12.7 [facility] Comment on above: Order Comment: Speci men Type: BLOOD SPECIMENOrdering Facility: [facility] Address: [address] [place] [address] Performed By: #### 5 7021-8 ####[facility] LAB[facility] [id number] [place] [address] [place] Platelets (Bld) [#/Vol] 439 10*3/uL High 150-400 [facility] Comment on above: Order Comment: Speci men Type: BLOOD SPECIMENOrdering Facility: [facility] Address: [address] [place], [place] [address] Performed By: #### 5 7021-8 ####[facility] LABVER[facility] [id number] [place] [address] [place] RBC (Bld) [#/Vol] 4.40 10*6/uL Normal 3.90-5.20 [facility] Comment on above: Order Comment: Speci men Type: BLOOD SPECIMENOrdering Facility: [facility] Address: [address] [place], [place] [address] Performed By: #### 5 7021-8 ####[facility] LABIA [id number] [place] [address] [place] WBC (Bld) [#/Vol] 7.18 10*3/uL Normal 3.70-11.00 [facility] Comment on above: Order Comment: Speci men Type: BLOOD SPECIMENOrdering Facility: [facility] Address: [address] [place] [address] Performed By: #### 5 7021-8 ####[facility] LABCLIA [id number] [id number] [address] [facility] CNOVon 01-01-2023 CNOV Office Visit (INTMWS ) STEVEN KOENIG ([id number]) 1955 F Date Time Provider Department 01/01/23 2:00 PM OLY SMITH INTMWS During your visit today, we recorded the following information about you: Pulse Respiration Blood pressure Weight 85/minute 22/minute 170/83 58.1 kg Oly Smith [employer] 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 Angie Jones, [facility] Anxiety 12/14/2015 Bipolar affective disorder, currently active ([facility]) 01/18/2016 Dr. Angie Jones, [facility] Chronic bronchitis ([facility]) 07/26/2016 Closed skull fracture ([facility]) 1994 [facility] Coronary artery disease DDD (degenerative disc disease), cervical Endometriosis 2007 Essential hypertension 12/14/2015 GERD (gastroesophageal reflux disease) 03/13/2019 History of colon polyps History of gastric ulcer 12/14/2015 HLD (hyperlipidemia) Injury of left facial nerve 1994 PAD (peripheral artery disease) ([facility]) 09/28/2019 Recurrent major depression in partial remission ([facility]) 12/14/2015 S/P drug eluting coronary stent [...] TOTAL FACIAL NERVE DECOMPRESSION AND/REPAIR Left 1989 [facility] Patient has no known allergies. MEDICATIONS traZODone (DESYREL) 100 mg tablet Take 2 tablets by mouth daily at bedtime. wcomplvsnpf-fhuqbosxw-n ilanter (TRELEGY ELLIPTA) 200-62.5-25 mcg inhalation powder [...] 1 tabl (more content not included)... Normal [facility] Frank 01-01-2023 [facility] STEVEN KOENIG ([id number]) 1955 Date Time Provider Department 01/01/23 [facility] During your visit today, we recorded the following information about you: GIO Cardona 01/01/2023 3:55 PM Signed Behavioral Health Social Work Progress Note Patient identified for [facility] from: PCP Reason for referral: Resources Behavioral Health Resources: Substance abuse [facility] encounter type: Telephone Encounter Attempts to Outreach: 1 attempt Referral made: Psychology - External Psychology-External referral type: Alcohol/Drug Treatment Reason for external referral: Patient seeking longterm support, Patient needs services closer to home [...] look into for detoxification and substance abuse: [facility] [address] [place] [address] [address] [facility] [address] [place] [phone] Patient states she may end up just going to [facility] if she can't find anywhere to go to assist as she really needs to detox. Advised to call these numbers and if additional assistance is needed to inform this SW. GIO Cardona January 01, 2023 Allergies As of Date: 01/01/2023 (No Known Allergies) Date Reviewed: 01/01/2023 Reviewed by: Oly Smith APRN.SUPERVISOR MOLD YARD - Fully Assessed Reason for Visit: Behavioral Health Social Work [Other] Prescriptions as of 01/01/2023 - traZODone (DESYREL) 100 mg tablet Take 2 tablets by mouth daily at bedtime. - gprxnoeqwiz-cwomsbvzg-e ilanter (TRELEGY ELLIPTA) 200-62.5-25 mcg inhalation powder [...] [I73.9] 09/28/2019 (more content not included)... Normal [facility] XR CHEST 2V FRONTAL/LATon XR CHEST 2V [...] tissues: Unremarkable. IMPRESSION: No acute radiographic abnormality. School Laboratory Technician: PSCB Transcribe Date/Time: Jan 01 2023 3:22P Dictated by : HUBER VILA MD This examination was interpreted and the report reviewed and electronically signed by: HUBER VILA MD on Jan 01 2023 3:23PM EST [id number] Normal [facility] XR Chest PA and Lateralon IMPRESSION: No acute radiographic abnormality. School Laboratory Technician: SRAVANI Transcribe Date/Time: Jan 01 2023 3:22P Dictated by : HUBER VILA MD This examination was interpreted and the report reviewed and electronically signed by: HUBER VILA MD on Jan 01 2023 3:23PM [facility] DIVISION OF RADIOLOGY * * *Final Report* [...] soft tissues: Unremarkable. DIVISION OF RADIOLOGY Provider, [facility] - 01/01/2023 * * *Final Report* * [...] Unremarkable. IMPRESSION IMPRESSION: No acute radiographic abnormality. School Laboratory Technician: SRAVANI Transcribe Date/Time: Jan 01 2023 3:22P Dictated by : HUBER VILA MD This examination was interpreted and the report reviewed and electronically signed by: HUBER VILA MD on Jan 01 2023 3:23PM [facility] Radiology Study observation (narrative) [facility] XR Chest PA and LateralOrder ed By: Ccf Provider on 01-01-2023 [facility] .Auto Diffon 12-23-2022 Basophil, Absolute 0.1 10 3/mcL Normal 0.0-0.2 [facility] ([place]) Comment on above: Performed By: #### T ROPHS, GFR, CMP, PBNP #### [address] [address] Basophils/100 WBC (Bld) 1.5 % Normal 0.0-2.5 A [facility] ([place]) Comment on above: Performed By: #### T ROPHS, GFR, CMP, PBNP #### [address] [address] Eosinophil, Absolute 0.1 10 3/mcL Normal 0.0-0.4 [facility] ([place]) Comment on above: Performed By: #### T ROPHS, GFR, CMP, PBNP #### [address] [address] Eosinophils/100 WBC (Bld) 1.1 % Normal 0.0-7.0 [facility] ([place]) Comment on above: Performed By: #### T ROPHS, GFR, CMP, PBNP #### [address] [address] Lymphocyte, Absolute 2.0 10 3/mcL Normal 0.8-3.9 [facility] ([place]) Comment on above: Performed By: #### T ROPHS, GFR, CMP, PBNP #### [address] [address] Lymphocytes/100 WBC (Bld) 36.4 % Normal 10.0-50.0 [facility] ([place]) Comment on above: Performed By: #### T ROPHS, GFR, CMP, PBNP #### [address] [address] Monocyte, Absolute 0.5 10 3/mcL Normal 0.2-1.0 [facility] ([place]) Comment on above: Performed By: #### T ROPHS, GFR, CMP, PBNP #### [address] [address] Monocytes/100 WBC (Bld) 9.3 % Normal 1.7-13.0 A [facility] ([place]) Comment on above: Performed By: #### T GOMEZ, GFR, CMP, PBNP #### [address] [address] Neutrophils/100 WBC (Bld) 51.7 % Normal 37.0-80.0 [facility] ([place]) Comment on above: Performed By: #### T GOMEZ, GFR, CMP, PBNP #### Anthony [address] [address] .GFRon 12-23-2022 GFR 100 ml/min/1.73sqm Normal [facility] ([place]) Comment on above: Result Comment: [...] #### T GOMEZ, GFR, CMP, PBNP #### [address] [address] GFR Non- 82 ml/min/1.73sqm Normal [facility] ([place]) Comment on above: Result Comment: [...] #### T GOMEZ, GFR, CMP, PBNP #### [address] [address] .MDWon 12-23-2022 Monocyte Distribution Width 18.17 Normal 0.00-20.00 [facility] ([place]) Comment on above: Result Comment: For ED adult patients suspected of sepsis, MDW<=20.0 does not rule out sepsis or risk of sepsis Performed By: #### T GOMEZ, GFR, CMP, PBNP #### [address] [address] .NEUABSon 12-23-2022 Neutrophil, Absolute 2.8 10 3/mcL Low 2.9-6.2 [facility] ([place]) Comment on above: Performed By: #### T GOMEZ, GFR, CMP, PBNP #### [address] [address] BMPon 12-23-2022 BUN/Creatinine Ratio 6 ratio Low 7-27 [facility] ([place]) Comment on above: Performed By: #### T GOMEZ, GFR, CMP, PBNP #### [address] [address] Calcium [Mass/Vol] 8.1 mg/dL Low 8.4-10.2 [facility] ([place]) Comment on above: Performed By: #### T GOMEZ, GFR, CMP, PBNP #### [address] [address] Chloride [Moles/Vol] 102 mmol/L Normal 98-107 [facility] ([place]) Comment on above: Performed By: #### T GOMEZ, GFR, CMP, PBNP #### [address] [address] CO2 [Moles/Vol] 30 mmol/L Normal 23-31 [facility] ([place]) Comment on above: Performed By: #### T ROPHS, GFR, CMP, PBNP #### [address] [address] Creatinine [Mass/Vol] 0.71 mg/dL Normal 0.55-1.02 [facility] ([place]) Comment on above: Performed By: #### T ROPHS, GFR, CMP, PBNP #### [address] [address] Electrolyte Balance 7.0 mEq/L Normal 4.0-15.0 [facility] ([place]) Comment on above: Performed By: #### T ROPHS, GFR, CMP, PBNP #### [address] [address] Glucose [Mass/Vol] 88 mg/dL Normal 80-115 [facility] ([place]) Comment on above: Performed By: #### T ROPHS, GFR, CMP, PBNP #### [address] [address] Potassium [Moles/Vol] 4.1 mmol/L Normal 3.5-5.1 [facility] ([place]) Comment on above: Performed By: #### T ROPHS, GFR, CMP, PBNP #### [address] [address] Sodium [Moles/Vol] 139 mmol/L Normal 136-145 [facility] ([place]) Comment on above: Performed By: #### T ROPHS, GFR, CMP, PBNP #### [address] [address] Urea nitrogen [Mass/Vol] 4 mg/dL Low 7-18 [facility] ([place]) Comment on above: Performed By: #### T ROPHS, GFR, CMP, PBNP #### [address] [address] CBCon 12-23-2022 Erythrocyte distribution width (RBC) [Ratio] 15.8 % High 11.5-14.5 [facility] ([place]) Comment on above: Performed By: #### T ROPHS, GFR, CMP, PBNP #### [address] [address] Hematocrit (Bld) [Volume fraction] 39.7 % Normal 37.0-47.0 [facility] ([place]) Comment on above: Performed By: #### T ROPHS, GFR, CMP, PBNP #### [address] [address] Hgb 13.2 G/dL Normal 12.0-16.0 [facility] ([place]) Comment on above: Performed By: #### T ROPHS, GFR, CMP, PBNP #### [address] [address] MCH (RBC) [Entitic mass] 32.3 pg High 27.0-31.2 [facility] ([place]) Comment on above: Performed By: #### T ROPHS, GFR, CMP, PBNP #### [place] [address] MCHC 33.2 G/dL Normal 33.0-37.0 [facility] ([place]) Comment on above: Performed By: #### T ROPHS, GFR, CMP, PBNP #### [address] [address] MCV (RBC) [Entitic vol] 97.3 fL High 80.0-94.0 A [facility] ([place]) Comment on above: Performed By: #### T ROPHS, GFR, CMP, PBNP #### [address] [address] Platelet 337 10 3/mcL Normal 130-400 [facility] ([place]) Comment on above: Performed By: #### T ROPHS, GFR, CMP, PBNP #### [address] [address] Platelet mean volume (Bld) [Entitic vol] 7.7 fL Normal 7.4-10.4 [facility] ([place]) Comment on above: Performed By: #### T ROPHS, GFR, CMP, PBNP #### [place] [id number] RBC 4.08 10 6/mcL Low 4.20-5.40 [facility] ([place]) Comment on above: Performed By: #### T ARIELLEHS, GFR, CMP, PBNP #### [place] [address] [place], [place] [address] WBC 5.4 10 3/mcL Normal 4.6-10.8 [facility] ([place]) Comment on above: Performed By: #### T ARIELLEHS, GFR, CMP, PBNP #### [facility] [address] [place], [place] [address] LABORATORYOrdered By: Lisa Casas on 12-23-2022 Basophil, [...] B (Bld) [Mass/Vol] 540 pg/mL High 0-125 [facility] ([place]) Comment on above: Result Comment: NT-p roBNP results of less than 300 pg/mL effectively rules out acute congestive heart failure with 99% negative predictive value. Performed By: #### T GOMEZ, GFR, CMP, PBNP #### Anthony [address] [address] TROPHSon 12-23-2022 Troponin I High Sensitivity 14.1 ng/L Normal 0.0-51.4 [facility] ([place]) Comment on above: Performed By: #### T GOMEZ, GFR, CMP, PBNP #### [address] [address] XR CHEST 1 VIEWon 12-23-2022 XR CHEST [...] 2:43:01 PM Ordering Provider: JOSE ROBERTO Rivero [facility] ([place]) Luba 11-26-2022 CN Office Visit (PULMWS ) STEVEN KOENIG ([id number]) 1955 F Date Time Provider Department 11/26/22 12:45 PM ISAURO ASHER PULMWS During your visit today, we recorded the following information about you: Pulse Respiration Blood pressure Weight 98/minute 20/minute 120/84 57.6 kg Isauro Asher MD 11/26/2022 2:01 PM Signed . Respiratory [place] Note Patient name: Steven Koenig PCP: Ulises Hermosillo MD CC: Hemoptysis HPI: Steven Koenig 67 year old female current heavy smoker, over 100 pack years with PMH significant for bipolar affective disorder, h/o alcohol abuse, GERD, PAD, HLD, CAD s/p stent, severe COPD (FEV1 0.83 L 36%), oxygen dependence, previously following in [facility], [place]. Recent admission at [facility] in [place] for AECOPD. CXR reported as normal. Discharged [...] No chest pain or current cough. DME: [facility] DATA: PFT 05/2022: Review of spirometry shows severe obstruction without significant improvement post bronchodilators and moderate reduction in diffusing capacity Labs: Laboratory testing at [facility], normal CBC and platelet count. Negative COVID and influenza Imaging / Diagnostic Studies: DATE OF EXAM: Jul 26 2022 4:27PM [facility] 0562 - CT LUNG [...] HISTORY Diagnosis Date Acute pancreatitis 2010 Maynor Matthews Alcohol use disorder 01/18/2016 [facility] Anxiety 12/14/2015 Bipolar affective disorder, currently active ([facility]) 01/18/2016 Dr[facility] Chronic bronchitis ([facility]) 07/26/2016 Closed skull fracture ([facility]) 1994 [facility] Coronary artery disease DDD (degenerative disc disease), cervical Endometriosis 2007 Essential hypertension 12/14/2015 GERD (gastroesophageal reflux disease) 03/13/2019 History of colon polyps History of gastric ulcer 12/14/2015 HLD (hyperlipidemia) Injury of left facial nerve 1994 PAD (peripheral artery disease) ([facility]) 09/28/2019 Recurrent major depression in partial remission ([facility]) 12/14/2015 S/P drug eluting coronary stent placement 08/25/2021 LAD and Dg2 Spinal stenosis ALLERGIES No Known Allergies albuterol HFA (VENTOLIN HFA) 90 mcg/actuation inhaler Inhale 2 Puffs as instructed every 6 hours as needed for wheezing/shortness of breath. qrzgeifziov-lejsudhsn-i ilanter (TRELEGY ELLIPTA) 200-62.5-25 mcg inhalation powder [...] 8 hours (more content not included)... [facility] Telephone (INTMWS) STEVEN KOENIG ([id number]) 1955 F Date Time Provider Department 11/20/22 ULISES HERMOSILLO INTMWS During your visit today, we recorded the following information about you: Christina Greco LPN 11/20/2022 10:40 AM Signed Pt called and reports she went to [facility] ER last week for difficulty breathing [...] tablets by mouth daily at bedtime. - lcaknldtfox-ywzxwefux-a ilanter (TRELEGY ELLIPTA) 200-62.5-25 mcg inhalation powder [...] minutes, none*09/28/2019 07/07/2020 PAD (peripheral artery disease) ([facility]) [I73.9] 09/28/2019 Anxiety and depression (more content not included)... Normal [facility] .Auto Diffon 10-26-2022 Basophil, Absolute 0.1 10 3/mcL Normal 0.0-0.2 [facility] ([place]) Comment on above: Performed By: #### T GOMEZ, GFR, CMP, PBNP #### [address] [address] Basophils/100 WBC (Bld) 1.6 % Normal 0.0-2.5 A [facility] ([place]) Comment on above: Performed By: #### T GOMEZ, GFR, CMP, PBNP #### [address] [address] Eosinophil, Absolute 0.2 10 3/mcL Normal 0.0-0.4 [facility] ([place]) Comment on above: Performed By: #### T GOMEZ, GFR, CMP, PBNP #### [address] [address] Eosinophils/100 WBC (Bld) 2.3 % Normal 0.0-7.0 [facility] ([place]) Comment on above: Performed By: #### T GOMEZ, GFR, CMP, PBNP #### [address] [address] Lymphocyte, Absolute 2.1 10 3/mcL Normal 0.8-3.9 [facility] ([place]) Comment on above: Performed By: #### T ARIELLEHS, GFR, CMP, PBNP #### [address] [address] Lymphocytes/100 WBC (Bld) 29.5 % Normal 10.0-50.0 [facility] ([place]) Comment on above: Performed By: #### T ROPHS, GFR, CMP, PBNP #### [address] [address] Monocyte, Absolute 0.6 10 3/mcL Normal 0.2-1.0 [facility] ([place]) Comment on above: Performed By: #### T ROPHS, GFR, CMP, PBNP #### [address] [address] Monocytes/100 WBC (Bld) 8.6 % Normal 1.7-13.0 [facility] ([place]) Comment on above: Performed By: #### T ROPMARILEE, GFR, CMP, PBNP #### [address] [address] Neutrophils/100 WBC (Bld) 58.0 % Normal 37.0-80.0 [facility] ([place]) Comment on above: Performed By: #### T GOMEZ, GFR, CMP, PBNP #### [address] [address] .GFRon 10-26-2022 GFR 100 ml/min/1.73sqm Normal [facility] ([place]) Comment on above: Result Comment: GFR Population [...] #### T ROPHS, GFR, CMP, PBNP #### [address] [address] GFR Non- 82 ml/min/1.73sqm Normal [facility] ([place]) Comment on above: Result Comment: GFR Population [...] #### T GOMEZ, GFR, CMP, PBNP #### [place] [address] .MDWon 10-26-2022 Monocyte Distribution Width 17.60 Normal 0.00-20.00 [facility] ([place]) Comment on above: Result Comment: For ED adult patients suspected of sepsis, MDW<=20.0 does not rule out sepsis or risk of sepsis Performed By: #### T GOMEZ, GFR, CMP, PBNP #### [address] [address] .NEUABSon 10-26-2022 Neutrophil, Absolute 4.1 10 3/mcL Normal 2.9-6.2 [facility] ([place]) Comment on above: Performed By: #### T ROPHS, GFR, CMP, PBNP #### [address] [address] CBCon 10-26-2022 Erythrocyte distribution width (RBC) [Ratio] 17.6 % High 11.5-14.5 [facility] ([place]) Comment on above: Performed By: #### T ROPHS, GFR, CMP, PBNP #### [place] [id number] Hematocrit (Bld) [Volume fraction] 39.9 % Normal 37.0-47.0 [facility] ([place]) Comment on above: Performed By: #### T GOMEZ, GFR, CMP, PBNP #### [address] [address] Hgb 13.3 G/dL Normal 12.0-16.0 [facility] ([place]) Comment on above: Performed By: #### T ROPHS, GFR, CMP, PBNP #### [address] [address] MCH (RBC) [Entitic mass] 32.2 pg High 27.0-31.2 [facility] ([place]) Comment on above: Performed By: #### T GOMEZ, GFR, CMP, PBNP #### [address] [address] MCHC 33.4 G/dL Normal 33.0-37.0 [facility] ([place] Comment on above: Performed By: #### T ROPHS, GFR, CMP, PBNP #### [address] [address] MCV (RBC) [Entitic vol] 96.4 fL High 80.0-94.0 [facility] ([place]) Comment on above: Performed By: #### T ROPMARILEE, GFR, CMP, PBNP #### [address] [address] Platelet 387 10 3/mcL Normal 130-400 [facility] ([place]) Comment on above: Performed By: #### T ROPHS, GFR, CMP, PBNP #### [address] [address] Platelet mean volume (Bld) [Entitic vol] 7.1 fL Low 7.4-10.4 [facility] ([place] Comment on above: Performed By: #### T ROPHS, GFR, CMP, PBNP #### [address] [address] RBC 4.14 10 6/mcL Low 4.20-5.40 [facility] ([place] Comment on above: Performed By: #### T ROPHS, GFR, CMP, PBNP #### [address] [address] WBC 7.1 10 3/mcL Normal 4.6-10.8 [facility] ([place] Comment on above: Performed By: #### T ROPHS, GFR, CMP, PBNP #### [address] [address] CMPon 10-26-2022 Albumin Level 3.3 G/dL Low 3.4-4.8 [facility] ([place] Comment on above: Performed By: #### T GOMEZ, GFR, CMP, PBNP #### [address] [address] Albumin/Globulin [Mass ratio] 0.9 {ratio} Low 1.1-2.5 [facility] ([place] Comment on above: Performed By: #### T GOMEZ, GFR, CMP, PBNP #### [address] [address] ALP [Catalytic activity/Vol] 83 U/L Normal 40-135 [facility] ([place] Comment on above: Performed By: #### T ROPMARILEE, GFR, CMP, PBNP #### [address] [address] ALT [Catalytic activity/Vol] 29 U/L Normal 14-59 [facility] ([place] Comment on above: Performed By: #### T ARIELLEHS, GFR, CMP, PBNP #### [address] [address] AST [Catalytic activity/Vol] 21 U/L Normal 10-40 [facility] ([place] Comment on above: Performed By: #### T ROPHS, GFR, CMP, PBNP #### [address] [address] Bili Total 0.1 mg/dL Low 0.2-1.0 [facility] ([place]) Comment on above: Result Comment: Use of this assay is not recommended for patients undergoing treatment with eltrombopag due to the potential for falsely elevated results. Performed By: #### T ROPHS, GFR, CMP, PBNP #### [place] [address] BUN/Creatinine Ratio 14 ratio Normal 7-27 [facility] ([place]) Comment on above: Performed By: #### T ROPHS, GFR, CMP, PBNP #### [place] [address] Calcium [Mass/Vol] 8.5 mg/dL Normal 8.4-10.2 [facility] ([place]) Comment on above: Performed By: #### T ROPHS, GFR, CMP, PBNP #### [place] [address] Chloride [Moles/Vol] 104 mmol/L Normal 98-107 [facility] ([place]) Comment on above: Performed By: #### T ROPHS, GFR, CMP, PBNP #### [place] [address] CO2 [Moles/Vol] 28 mmol/L Normal 23-31 [facility] ([place] Comment on above: Performed By: #### T ROPHS, GFR, CMP, PBNP #### [place] [address] Creatinine [Mass/Vol] 0.71 mg/dL Normal 0.55-1.02 [facility] ([place]) Comment on above: Performed By: #### T ROPHS, GFR, CMP, PBNP #### [place] [address] Electrolyte Balance 8.0 mEq/L Normal 4.0-15.0 [facility] ([place]) Comment on above: Performed By: #### T ROPHS, GFR, CMP, PBNP #### [place] [address] Globulin 3.5 G/dL Normal [facility] ([place] Comment on above: Performed By: #### T ROPHS, GFR, CMP, PBNP #### [place] [id number] Glucose [Mass/Vol] 88 mg/dL Normal 80-115 [facility] ([place]) Comment on above: Performed By: #### T GOMEZ, GFR, CMP, PBNP #### [address] [address] Potassium [Moles/Vol] 4.5 mmol/L Normal 3.5-5.1 [facility] ([place] Comment on above: Performed By: #### T GOMEZ, GFR, CMP, PBNP #### [address] [address] Sodium [Moles/Vol] 140 mmol/L Normal 136-145 [facility] ([place]) Comment on above: Performed By: #### T GOMEZ, GFR, CMP, PBNP #### [address] [address] Total Protein 6.8 G/dL Normal 6.4-8.2 [facility] ([place] Comment on above: Performed By: #### T GOMEZ, GFR, CMP, PBNP #### [address] [address] Urea nitrogen [Mass/Vol] 10 mg/dL Normal 7-18 [facility] ([place] Comment on above: Performed By: #### T GOMEZ, GFR, CMP, PBNP #### [address] [address] [id number] 10-26-2022 SARS-CoV-2 (COVID-19) RNA IVANA+probe Ql (Unsp spec) Negative Normal Negative [facility] ([place] Comment [place] above: Performed By: #### T ROPMARILEE, GFR, CMP, PBNP #### [address] [address] SARS-CoV-2 (COVID-19) RNA IVANA+probe Ql (Unsp spec) Normal [facility] ([place] Comment on above: Result Comment: Nega tive [...] #### T GOMEZ, GFR, CMP, PBNP #### [address] [address] FLURSVon 10-26-2022 Flu A PCR (AO) Negative Normal Negative [facility] ([place] Comment on above: Result Comment: Posi tive [...] virus (RSV) nucleic acid in nasopharyngeal swab (STAGE MANAGER) specimens from patients with signs and symptoms of respiratory infection in conjunction with clinical and laboratory findings. The test is intended for use as an aid in the differential diagnosis of influenza A virus, influenza B virus, and RSV in humans and is not intended to detect influenza C. Performed By: #### T GOMEZ, GFR, CMP, PBNP #### [address] [address] Flu B PCR (AO) Negative Normal Negative [facility] ([place] Comment on above: Result Comment: Posi tive [...] REPEAT COLLECTION AND TESTING IS RECOMMENDED. The [employer] Flu A/B & RSV Assay is a real-time polymerase chain reaction (PCR) based qualitative in vitro diagnostic test for the direct detection and differentiation of influenza A virus, influenza B virus, and respiratory syncytial virus (RSV) nucleic acid in nasopharyngeal swab (STAGE MANAGER) specimens from patients with signs and symptoms of respiratory infection in conjunction with clinical and laboratory findings. The test is intended for use as an aid in the differential diagnosis of influenza A virus, influenza B virus, and RSV in humans and is not intended to detect influenza C. Performed By: #### T GOMEZ, GFR, CMP, PBNP #### [address] [address] RSV PCR (AO) Negative Normal Negative [facility] ([place] Comment on above: Result Comment: Posi tive [...] virus (RSV) nucleic acid in nasopharyngeal swab (STAGE MANAGER) specimens from patients with signs and symptoms of respiratory infection in conjunction with clinical and laboratory findings. The test is intended for use as an aid in the differential diagnosis of influenza A virus, influenza B virus, and RSV in humans and is not intended to detect influenza C. Performed By: #### T ROPHS, GFR, CMP, PBNP #### [place] [address] [place] [address] LABORATORYOrdered By: Jensen Fay on 10-26-2022 FLUAV [...] B (Bld) [Mass/Vol] 521 pg/mL High 0-125 [facility] ([place] Comment on above: Result Comment: NT-p roBNP results of less than 300 pg/mL effectively rules out acute congestive heart failure with 99% negative predictive value. Performed By: #### T ROPHS, GFR, CMP, PBNP #### [address] [address] TOXSCon 10-26-2022 U Ampheta (AO) Negative Normal [facility] ([place]) Comment on above: Performed By: #### U A, TOXSC #### [address] [address] U Nanci (AO) Negative Normal [facility] ([place]) Comment on above: Performed By: #### U A, TOXSC #### [address] [address] U Heron (AO) Negative Normal [facility] ([place]) Comment on above: Performed By: #### U A, TOXSC #### [address] [address] U Cannab (AO) Negative [facility] ([place]) Comment [place] above: Performed By: #### U A, TOXSC #### [address] [address] U Cocaine (AO) Negative [facility] ([place] Comment on above: Performed By: #### U A, TOXSC #### [address] [address] U Methadone (AO) Negative [facility] ([place] Comment on above: Performed By: #### U A, TOXSC #### [address] [address] U PCP (AO) Negative [facility] ([place] Comment on above: Performed By: #### U A, TOXSC #### [address] [address] U TCA (AO) Negative [facility] ([place] Comment on above: Performed By: #### U A, TOXSC #### [address] [address] Urine Opiates (AO) Negative [facility] ([place] Comment on above: Performed By: #### U A, TOXSC #### [address] [address] TROPHSon 10-26-2022 Troponin I High Sensitivity 15.6 ng/L Normal 0.0-51.4 [facility] ([place] Comment on above: Performed By: #### T ROPHS, GFR, CMP, PBNP #### [address] [address] UAon 10-26-2022 Color (U) Yellow [facility] ([place] Comment on above: Performed By: #### U A, TOXSC #### [address] [address] Glucose (U) [Mass/Vol] Negative Normal Negative [facility] ([place]) Comment on above: Performed By: #### U A, TOXSC #### [address] [address] Ketones Ql (U) Negative Normal Negative [facility] ([place] Comment on above: Performed By: #### U A, TOXSC #### [address] [address] UA Appear Clear Normal Clear [facility] ([place] Comment on above: Performed By: #### U A, TOXSC #### [address] [address] UA Blood Negative Normal Negative [facility] ([place] Comment on above: Performed By: #### U A, TOXSC #### [place] [address] UA Leuk Est Negative Normal Negative [facility] ([place] Comment on above: Performed By: #### U A, TOXSC #### [place] [address] UA Nitrite Negative Normal Negative [facility] ([place] Comment on above: Performed By: #### U A, TOXSC #### [place] [address] UA pH 5.5 Normal 5.0 - 8.0 [facility] ([place] Comment on above: Performed By: #### U A, TOXSC #### [place] [address] UA Protein Negative Normal Negative [facility] ([place] Comment on above: Performed By: #### U A, TOXSC #### [address] [address] UA Spec Grav <=1.005 Abnormal 1.015-1.025 [facility] ([place] Comment on above: Performed By: #### U A, TOXSC #### [place] [address] UA Specimen Type Not Given Normal [facility] ([place] Comment on above: Performed By: #### U A, TOXSC #### [address] [place], [place] [address] UA Urobilinogen 0.2 E.U./dL Normal 0.2-1.0 [facility] ([place] Comment on above: Performed By: #### U A, TOXSC #### [address] [place], [place] [address] Urobilinogen (U) [Mass/Vol] Negative Normal Negative [facility] ([place] Comment on above: Performed By: #### U A, TOXSC #### [address] [place], [place] [address] XR CHEST 1 VIEWon 10-26-2022 XR CHEST [...] 10/26/2022 7:06:29 PM Ordering Provider: BRIAN Rivero [facility]) CT LUNG SCREEN WO IVCONon CT LUNG SCREEN WO IVCON * * *Final Repor t* * * DATE OF EXAM: Jul 26 2022 4:27PM [facility] [place] 0562 - CT LUNG [...] without contrast. MQ: [id number] Patient characteristics: * Gqea-sl-Bsxun: 1955; Age at exam: 67 years * Gender: Female * Lung Disease: Asymptomatic (no signs or symptoms of lung disease) * Number of Pack Years: 55 * Current smoker (=0) or Number of Years since Quit: 0 * Ordering provider and NPI: NICOLE KIMIMARCELLE KENNY [id number] * Interpreting radiologist and NPI: Ervin [id number] Exam acquisition parameters: * Exam Date: 07/26/2022 4:27 PM * Site: [facility] * * CT System [employer] Le[employer] Sales Representative: [facility] * CT System Model: Dual Source * [...] Descending stents in place; Right Coronary mild Gray Mixing Operator (topogram) images: No additional findings. IMPRESSION: LungRADS category: 2 LungRADS modifier: None LungRADS 0 reason: n/a Recommendations: Continue annual screening with LDCT in 12 months. Other actionable findings: ====== Reference: [employer]. Lung CT Screening Reporting and Data System (Lung-RADS). Available at: http://[email or web address].org/Qual ity-Safety/Resources/[employer] Laboratory Technician: SRAVANI Transcribe Date/Time: Jul 27 2022 8:04A Dictated by : VEE GAMINO MD This examination was interpreted and the report reviewed and electronically signed by: VEE GAMINO MD on Jul 27 2022 8:16AM EST [id number] Normal [facility] OXIMETRY WITH AMBULATIONon 0 07-09-2022 [facility] ECHOon 05-21-2022 [facility] .Auto Diffon 05-05-2022 Basophil, Absolute 0.0 10 3/mcL Normal 0.0-0.3 [facility] ([place] Comment on above: Performed By: #### T GOMEZ, GFR, CMP, PBNP #### [address] [address] Basophils/100 WBC (Bld) 0.1 % Normal 0.0-2.5 A [facility] ([place]) Comment on above: Performed By: #### T ROPHS, GFR, CMP, PBNP #### [address] [address] Eosinophil, Absolute 0.0 10 3/mcL Normal 0.0-0.7 [facility] ([place] Comment on above: Performed By: #### T ROPHS, GFR, CMP, PBNP #### [address] [address] Eosinophils/100 WBC (Bld) 0.0 % Normal 0.0-6.0 [facility] ([place] Comment on above: Performed By: #### T ROPHS, GFR, CMP, PBNP #### [address] [address] Lymphocyte, Absolute 0.6 10 3/mcL Low 0.9-4.3 [facility] ([place] Comment on above: Performed By: #### T ROPHS, GFR, CMP, PBNP #### [address] [address] Lymphocytes/100 WBC (Bld) 5.1 % Low 20.0-40.0 [facility] ([place] Comment on above: Performed By: #### T ROPHS, GFR, CMP, PBNP #### [address] [address] Monocyte, Absolute 0.3 10 3/mcL Normal 0.1-1.4 [facility] ([place] Comment on above: Performed By: #### T ROPHS, GFR, CMP, PBNP #### [address] [address] Monocytes/100 WBC (Bld) 2.4 % Normal 2.0-13.0 [facility] ([place]) Comment on above: Performed By: #### T ROPHS, GFR, CMP, PBNP #### [address] [address] Neutrophils/100 WBC (Bld) 92.4 % High 50.0-75.0 [facility] ([place] Comment on above: Performed By: #### T ROPHS, GFR, CMP, PBNP #### [address] [address] .GFRon 05-05-2022 GFR >60 Normal [facility] ([place] Comment on above: Result Comment: GFR Population [...] #### T GOMEZ, GFR, CMP, PBNP #### [address] [address] GFR Non- >60 Normal [facility] ([place] Comment on above: Result Comment: GFR Population [...] #### T GOMEZ, GFR, CMP, PBNP #### [address] [address] .MDWon 05-05-2022 Monocyte Distribution Width Not performed Normal 0.00-20.00 [facility] ([place] Comment on above: Result Comment: MDW testing performed only on adult ER patients between the ages of 18-89 years. Performed By: #### T GOMEZ, GFR, CMP, PBNP #### [address] [address] .NEUABSon 05-05-2022 Neutrophil, Absolute 10.8 10 3/mcL High 2.3-8.1 A [facility] ([place]) Comment on above: Performed By: #### T GOMEZ, GFR, CMP, PBNP #### [address] [address] BMPon 05-05-2022 BUN/Creatinine Ratio 29.6 ratio High 10.0-22.0 [facility] ([place] Comment on above: Performed By: #### T GOMEZ, GFR, CMP, PBNP #### [address] [address] Calcium [Mass/Vol] 8.5 mg/dL Low 8.7-10.4 [facility] ([place] Comment on above: Performed By: #### T ROPHS, GFR, CMP, PBNP #### [address] [address] Chloride [Moles/Vol] 106 mmol/L Normal 98-110 [facility] ([place] Comment on above: Performed By: #### T ROPHS, GFR, CMP, PBNP #### [address] [address] CO2 [Moles/Vol] 32 mmol/L Normal 22-32 [facility] ([place] Comment on above: Performed By: #### T GOMEZ, GFR, CMP, PBNP #### [address] [address] Creatinine [Mass/Vol] 0.71 mg/dL Normal 0.50-1.20 [facility] ([place] Comment on above: Performed By: #### T GOMEZ, GFR, CMP, PBNP #### [address] [address] Electrolyte Balance 3.0 mEq/L Low 4.0-15.0 [facility] ([place] Comment on above: Performed By: #### T ROPHS, GFR, CMP, PBNP #### [address] [address] Glucose [Mass/Vol] 224 mg/dL High 82-115 [facility] ([place] Comment on above: Performed By: #### T ROPHS, GFR, CMP, PBNP #### [address] [address] Potassium [Moles/Vol] 4.5 mmol/L Normal 3.5-5.0 [facility] ([place] Comment on above: Performed By: #### T ROPHS, GFR, CMP, PBNP #### [address] [address] Sodium [Moles/Vol] 141 mmol/L Normal 136-145 [facility] ([place] Comment on above: Performed By: #### T ROPHS, GFR, CMP, PBNP #### [address] [address] Urea nitrogen [Mass/Vol] 21.0 mg/dL Normal 8.0-22.0 [facility] ([place] Comment on above: Performed By: #### T ROPHS, GFR, CMP, PBNP #### [address] [address] CBCon 05-05-2022 Erythrocyte distribution width (RBC) [Ratio] 16.5 % High 11.5-15.5 [facility] ([place] Comment on above: Performed By: #### T ROPHS, GFR, CMP, PBNP #### [address] [address] Hematocrit (Bld) [Volume fraction] 38.3 % Normal 34.0-46.0 [facility] ([place] Comment on above: Performed By: #### T ARIELLEHS, GFR, CMP, PBNP #### [address] [address] Hgb 12.2 G/dL Normal 12.0-16.0 [facility] ([place] Comment on above: Performed By: #### T ROPHS, GFR, CMP, PBNP #### [address] [address] MCH (RBC) [Entitic mass] 30.9 pg Normal 27.0-33.0 [facility] ([place] Comment on above: Performed By: #### T ROPHS, GFR, CMP, PBNP #### [address] [address] MCHC 32.0 G/dL Normal 32.0-36.0 [facility] ([place] Comment on above: Performed By: #### T ROPHS, GFR, CMP, PBNP #### [address] [address] MCV (RBC) [Entitic vol] 96.7 fL Normal 80.0-99.0 A [facility] ([place]) Comment on above: Performed By: #### T GOMEZ, GFR, CMP, PBNP #### [address] [address] Platelet 285 10 3/mcL Normal 150-450 [facility] ([place] Comment on above: Performed By: #### T GOMEZ, GFR, CMP, PBNP #### [address] [address] Platelet mean volume (Bld) [Entitic vol] 8.9 fL Normal 6.6-10.5 [facility] ([place] Comment on above: Performed By: #### T GOMEZ, GFR, CMP, PBNP #### [address] [address] RBC 3.96 10 6/mcL Low 4.10-5.30 [facility] ([place] Comment on above: Performed By: #### T GOMEZ, GFR, CMP, PBNP #### [address] [address] WBC 11.6 10 3/mcL High 4.5-10.8 [facility] ([place] Comment on above: Performed By: #### T GOMEZ, GFR, CMP, PBNP #### [address] [address] LABORATORYOrdered By: SYSTEM SYSTEM on 05-05-2022 Basophils [...] - 33.0 pg AH Workflow SS MCHC 32.0 G/dL Invalid Interpretation [...] Basophil, Absolute 0.0 10 3/mcL Normal 0.0-0.3 [facility] ([place] Comment on above: Performed By: #### T GOMEZ, GFR, CMP, PBNP #### [address] [address] Basophils/100 WBC (Bld) 0.2 % Normal 0.0-2.5 A [facility] ([place]) Comment on above: Performed By: #### T GOMEZ, GFR, CMP, PBNP #### [place] [address] [place], [place] [address] Eosinophil, Absolute 0.0 10 3/mcL Normal 0.0-0.7 [facility] ([place] Comment on above: Performed By: #### T ROPHS, GFR, CMP, PBNP #### [address] [address] Eosinophils/100 WBC (Bld) 0.0 % Normal 0.0-6.0 [facility] ([place] Comment on above: Performed By: #### T ROPHS, GFR, CMP, PBNP #### [address] [address] Lymphocyte, Absolute 0.6 10 3/mcL Low 0.9-4.3 [facility] ([place] Comment on above: Performed By: #### T ROPHS, GFR, CMP, PBNP #### [address] [address] Lymphocytes/100 WBC (Bld) 5.0 % Low 20.0-40.0 [facility] ([place] Comment on above: Performed By: #### T ROPHS, GFR, CMP, PBNP #### [address] [address] Monocyte, Absolute 0.3 10 3/mcL Normal 0.1-1.4 [facility] ([place] Comment on above: Performed By: #### T ROPHS, GFR, CMP, PBNP #### [address] [address] Monocytes/100 WBC (Bld) 2.4 % Normal 2.0-13.0 [facility] ([place] Comment on above: Performed By: #### T ROPHS, GFR, CMP, PBNP #### [address] [address] Neutrophils/100 WBC (Bld) 92.4 % High 50.0-75.0 [facility] ([place] Comment on above: Performed By: #### T ROPHS, GFR, CMP, PBNP #### [address] [address] .GFRon 05-04-2022 GFR >60 Normal [facility] ([place] Comment on above: Result Comment: GFR Population [...] T GOMEZ, GFR, CMP, PBNP #### [address] [address] GFR Non- >60 Normal [facility] ([place] Comment on above: Result Comment: GFR Population [...] T GOMEZ, GFR, CMP, PBNP #### [address] [address] .MDWon 05-04-2022 Monocyte Distribution Width Not performed Normal 0.00-20.00 [facility] ([place] Comment on above: Result Comment: MDW testing performed only on adult ER patients between the ages of 18-89 years. Performed By: #### T GOMEZ, GFR, CMP, PBNP #### [address] [address] .NEUABSon 05-04-2022 Neutrophil, Absolute 10.5 10 3/mcL High 2.3-8.1 A [facility] ([place] Comment on above: Performed By: #### T GOMEZ, GFR, CMP, PBNP #### [address] [address] BMPon 05-04-2022 BUN/Creatinine Ratio 24.7 ratio High 10.0-22.0 [facility] ([place] Comment on above: Performed By: #### T GOMEZ, GFR, CMP, PBNP #### [address] [address] Calcium [Mass/Vol] 8.7 mg/dL Normal 8.7-10.4 [facility] ([place] Comment on above: Performed By: #### T GOMEZ, GFR, CMP, PBNP #### [address] [address] Chloride [Moles/Vol] 108 mmol/L Normal 98-110 [facility] ([place] Comment on above: Performed By: #### T GOMEZ, GFR, CMP, PBNP #### [address] [address] CO2 [Moles/Vol] 30 mmol/L Normal 22-32 [facility] ([place] Comment on above: Performed By: #### T GOMEZ, GFR, CMP, PBNP #### [address] [address] Creatinine [Mass/Vol] 0.85 mg/dL Normal 0.50-1.20 [facility] ([place] Comment on above: Performed By: #### T ROPHS, GFR, CMP, PBNP #### [address] [address] Electrolyte Balance 3.0 mEq/L Low 4.0-15.0 [facility] ([place] Comment on above: Performed By: #### T ROPHS, GFR, CMP, PBNP #### [address] [address] Glucose [Mass/Vol] 150 mg/dL High 82-115 [facility] ([place] Comment on above: Performed By: #### T ROPHS, GFR, CMP, PBNP #### [address] [address] Potassium [Moles/Vol] 4.8 mmol/L Normal 3.5-5.0 [facility] ([place] Comment on above: Performed By: #### T ROPHS, GFR, CMP, PBNP #### [place] [id number] Sodium [Moles/Vol] 141 mmol/L Normal 136-145 [facility] ([place] Comment on above: Performed By: #### T ROPHS, GFR, CMP, PBNP #### [place] [address] Urea nitrogen [Mass/Vol] 21.0 mg/dL Normal 8.0-22.0 [facility] ([place] Comment on above: Performed By: #### T GOMEZ, GFR, CMP, PBNP #### [address] [address] CBCon 05-04-2022 Erythrocyte distribution width (RBC) [Ratio] 16.6 % High 11.5-15.5 [facility] ([place] Comment on above: Performed By: #### T ROPHS, GFR, CMP, PBNP #### [address] [address] Hematocrit (Bld) [Volume fraction] 39.9 % Normal 34.0-46.0 [facility] ([place] Comment on above: Performed By: #### T ROPHS, GFR, CMP, PBNP #### [place] [id number] Hgb 12.8 G/dL Normal 12.0-16.0 [facility] ([place] Comment on above: Performed By: #### T ROPHS, GFR, CMP, PBNP #### [address] [address] MCH (RBC) [Entitic mass] 30.8 pg Normal 27.0-33.0 [facility] ([place] Comment on above: Performed By: #### T ROPHS, GFR, CMP, PBNP #### [address] [address] MCHC 32.0 G/dL Normal 32.0-36.0 [facility] ([place]) Comment on above: Performed By: #### T ROPHS, GFR, CMP, PBNP #### [address] [address] MCV (RBC) [Entitic vol] 96.4 fL Normal 80.0-99.0 A [facility] ([place]) Comment on above: Performed By: #### T ROPHS, GFR, CMP, PBNP #### [place] [id number] Platelet 282 10 3/mcL Normal 150-450 [facility] ([place]) Comment on above: Performed By: #### T GOMEZ, GFR, CMP, PBNP #### [place] [address] Platelet mean volume (Bld) [Entitic vol] 8.9 fL Normal 6.6-10.5 [facility] ([place] Comment on above: Performed By: #### T GOMEZ, GFR, CMP, PBNP #### [address] [address] RBC 4.14 10 6/mcL Normal 4.10-5.30 [facility] ([place] Comment on above: Performed By: #### T ROPHS, GFR, CMP, PBNP #### [place] [id number] WBC 11.4 10 3/mcL High 4.5-10.8 [facility] ([place] Comment on above: Performed By: #### T ROPHS, GFR, CMP, PBNP #### [address] [address] LABORATORYOrdered By: SYSTEM SYSTEM on 05-04-2022 Basophils [...] Basophil, Absolute 0.1 10 3/mcL Normal 0.0-0.3 [facility] ([place]) Comment on above: Performed By: #### T ROPHS, GFR, CMP, PBNP #### [place] [address] [place], [place] [address] Basophils/100 WBC (Bld) 0.7 % Normal 0.0-2.5 A [facility] ([place] Comment on above: Performed By: #### T ROPHS, GFR, CMP, PBNP #### [address] [address] Eosinophil, Absolute 0.0 10 3/mcL Normal 0.0-0.7 [facility] ([place] Comment on above: Performed By: #### T ROPHS, GFR, CMP, PBNP #### [address] [address] Eosinophils/100 WBC (Bld) 0.3 % Normal 0.0-6.0 [facility] ([place] Comment on above: Performed By: #### T ROPHS, GFR, CMP, PBNP #### [address] [address] Lymphocyte, Absolute 2.3 10 3/mcL Normal 0.9-4.3 [facility] ([place] Comment on above: Performed By: #### T ROPHS, GFR, CMP, PBNP #### [address] [address] Lymphocytes/100 WBC (Bld) 25.2 % Normal 20.0-40.0 [facility] ([place] Comment on above: Performed By: #### T ROPHS, GFR, CMP, PBNP #### [address] [address] Monocyte, Absolute 1.0 10 3/mcL Normal 0.1-1.4 [facility] ([place] Comment on above: Performed By: #### T ROPHS, GFR, CMP, PBNP #### [address] [address] Monocytes/100 WBC (Bld) 10.8 % Normal 2.0-13.0 A [facility] ([place] Comment on above: Performed By: #### T ROPHS, GFR, CMP, PBNP #### [address] [address] Neutrophils/100 WBC (Bld) 63.0 % Normal 50.0-75.0 [facility] ([place] Comment on above: Performed By: #### T GOMEZ, GFR, CMP, PBNP #### Anthony [address] [address] .GFRon 05-03-2022 GFR Non- >60 Normal [facility] ([place] Comment on above: Result Comment: GFR Population [...] #### T GOMEZ, GFR, CMP, PBNP #### [address] [address] GFR >60 Normal [facility] ([place] Comment on above: Result Comment: GFR Population [...] T GOMEZ, GFR, CMP, PBNP #### Anthony [address] [address] .MDWon 05-03-2022 Monocyte Distribution Width Not performed Normal 0.00-20.00 [facility] ([place]) Comment on above: Result Comment: MDW testing performed only on adult ER patients between the ages of 18-89 years. Performed By: #### T ROPHS, GFR, CMP, PBNP #### [address] [address] .NEUABSon 05-03-2022 Neutrophil, Absolute 5.6 10 3/mcL Normal 2.3-8.1 [facility] ([place] Comment on above: Performed By: #### T ROPHS, GFR, CMP, PBNP #### [address] [address] BMPon 05-03-2022 BUN/Creatinine Ratio 17.9 ratio Normal 10.0-22.0 [facility] ([place] Comment on above: Performed By: #### T ROPHS, GFR, CMP, PBNP #### [address] [address] Calcium [Mass/Vol] 8.7 mg/dL Normal 8.7-10.4 [facility] ([place] Comment on above: Performed By: #### T ROPHS, GFR, CMP, PBNP #### [address] [address] Chloride [Moles/Vol] 110 mmol/L Normal 98-110 [facility] ([place] Comment on above: Performed By: #### T ROPHS, GFR, CMP, PBNP #### [address] [address] CO2 [Moles/Vol] 28 mmol/L Normal 22-32 [facility] ([place] Comment on above: Performed By: #### T ROPHS, GFR, CMP, PBNP #### [address] [address] Creatinine [Mass/Vol] 0.84 mg/dL Normal 0.50-1.20 [facility] ([place] Comment on above: Performed By: #### T ROPHS, GFR, CMP, PBNP #### [address] [address] Electrolyte Balance 6.0 mEq/L Normal 4.0-15.0 [facility] ([place]) Comment on above: Performed By: #### T ROPHS, GFR, CMP, PBNP #### [address] [address] Glucose [Mass/Vol] 96 mg/dL Normal 82-115 [facility] ([place]) Comment on above: Performed By: #### T ROPHS, GFR, CMP, PBNP #### [address] [address] Potassium [Moles/Vol] 4.5 mmol/L Normal 3.5-5.0 [facility] ([place] Comment on above: Performed By: #### T ROPHS, GFR, CMP, PBNP #### [address] [address] Sodium [Moles/Vol] 144 mmol/L Normal 136-145 [facility] ([place] Comment on above: Performed By: #### T ARIELLEHS, GFR, CMP, PBNP #### [address] [address] Urea nitrogen [Mass/Vol] 15.0 mg/dL Normal 8.0-22.0 [facility] ([place] Comment on above: Performed By: #### T ROPHS, GFR, CMP, PBNP #### [address] [address] CBCon 05-03-2022 Erythrocyte distribution width (RBC) [Ratio] 16.3 % High 11.5-15.5 [facility] ([place] Comment on above: Performed By: #### T ROPHS, GFR, CMP, PBNP #### [address] [address] Hematocrit (Bld) [Volume fraction] 40.5 % Normal 34.0-46.0 [facility] ([place] Comment on above: Performed By: #### T ROPHS, GFR, CMP, PBNP #### [address] [address] Hgb 13.2 G/dL Normal 12.0-16.0 [facility] ([place] Comment on above: Performed By: #### T ROPHS, GFR, CMP, PBNP #### [address] [address] MCH (RBC) [Entitic mass] 31.4 pg Normal 27.0-33.0 [facility] ([place] Comment on above: Performed By: #### T ROPHS, GFR, CMP, PBNP #### [address] [address] MCHC 32.6 G/dL Normal 32.0-36.0 [facility] ([place] Comment on above: Performed By: #### T ROPHS, GFR, CMP, PBNP #### Anthony [address] [address] MCV (RBC) [Entitic vol] 96.1 fL Normal 80.0-99.0 A [facility] ([place] Comment on above: Performed By: #### T ROPHS, GFR, CMP, PBNP #### [address] [address] Platelet 290 10 3/mcL Normal 150-450 [facility] ([place] Comment on above: Performed By: #### T ROPHS, GFR, CMP, PBNP #### [address] [address] Platelet mean volume (Bld) [Entitic vol] 8.9 fL Normal 6.6-10.5 [facility] ([place] Comment on above: Performed By: #### T ROPHS, GFR, CMP, PBNP #### [address] [address] RBC 4.21 10 6/mcL Normal 4.10-5.30 [facility] ([place] Comment on above: Performed By: #### T ROPHS, GFR, CMP, PBNP #### [address] [address] WBC 8.9 10 3/mcL Normal 4.5-10.8 [facility] ([place] Comment on above: Performed By: #### T ROPHS, GFR, CMP, PBNP #### [facility] [address] [place], [place] [address] LABORATORYOrdered By: SYSTEM SYSTEM on 05-03-2022 Basophils [...] 05-03-2022 Magnesium [Mass/Vol] 1.8 mg/dL Normal 1.6-2.4 [facility] ([place] Comment on above: Performed By: #### T ROPHS, GFR, CMP, PBNP #### [address] [address] .Auto Diffon 05-02-2022 Basophil, Absolute 0.1 10 3/mcL Normal 0.0-0.2 [facility] ([place] Comment on above: Performed By: #### T ROPHS, GFR, CMP, PBNP #### [address] [address] Basophils/100 WBC (Bld) 0.9 % Normal 0.0-2.5 A [facility] ([place]) Comment on above: Performed By: #### T ROPHS, GFR, CMP, PBNP #### [address] [address] Eosinophil, Absolute 0.1 10 3/mcL Normal 0.0-0.4 [facility] ([place] Comment on above: Performed By: #### T ROPHS, GFR, CMP, PBNP #### [address] [address] Eosinophils/100 WBC (Bld) 0.8 % Normal 0.0-7.0 [facility] ([place] Comment on above: Performed By: #### T ROPHS, GFR, CMP, PBNP #### [address] [address] Lymphocyte, Absolute 2.1 10 3/mcL Normal 0.8-3.9 [facility] ([place] Comment on above: Performed By: #### T ROPHS, GFR, CMP, PBNP #### [address] [address] Lymphocytes/100 WBC (Bld) 16.7 % Normal 10.0-50.0 [facility] ([place] Comment on above: Performed By: #### T ROPMARILEE, GFR, CMP, PBNP #### [address] [address] Monocyte, Absolute 0.9 10 3/mcL Normal 0.2-1.0 [facility] ([place] Comment on above: Performed By: #### T ROPHS, GFR, CMP, PBNP #### [address] [address] Monocytes/100 WBC (Bld) 7.0 % Normal 1.7-13.0 [facility] ([place]) Comment on above: Performed By: #### T GOMEZ, GFR, CMP, PBNP #### [address] [address] Neutrophils/100 WBC (Bld) 74.6 % Normal 37.0-80.0 [facility] ([place] Comment on above: Performed By: #### T GOMEZ, GFR, CMP, PBNP #### [address] [address] .GFRon 05-02-2022 GFR 61 ml/min/1.73sqm Normal [facility] ([place] Comment on above: Result Comment: GFR Population [...] #### T ROPHS, GFR, CMP, PBNP #### [address] [address] GFR Non- 50 ml/min/1.73sqm Normal [facility] ([place] Comment on above: Result Comment: GFR Population [...] #### T GOMEZ, GFR, CMP, PBNP #### [address] [address] .MDWon 05-02-2022 Monocyte Distribution Width 17.05 Normal 0.00-20.00 [facility] ([place] Comment on above: Result Comment: For ED adult patients suspected of sepsis, MDW<=20.0 does not rule out sepsis or risk of sepsis Performed By: #### T GOMEZ, GFR, CMP, PBNP #### [address] [address] .NEUABSon 05-02-2022 Neutrophil, Absolute 9.4 10 3/mcL High 2.9-6.2 [facility] ([place] Comment on above: Performed By: #### T GOMEZ, GFR, CMP, PBNP #### [address] [address] BMPon 05-02-2022 BUN/Creatinine Ratio 9 ratio Normal 7-27 [facility] ([place] Comment on above: Performed By: #### T GOMEZ, GFR, CMP, PBNP #### [address] [address] Calcium [Mass/Vol] 8.8 mg/dL Normal 8.4-10.2 [facility] ([place] Comment on above: Performed By: #### T ROPHS, GFR, CMP, PBNP #### [address] [address] Chloride [Moles/Vol] 102 mmol/L Normal 98-107 [facility] ([place] Comment on above: Performed By: #### T ROPHS, GFR, CMP, PBNP #### [address] [address] CO2 [Moles/Vol] 29 mmol/L Normal 23-31 [facility] ([place] Comment on above: Performed By: #### T ROPHS, GFR, CMP, PBNP #### [address] [address] Creatinine [Mass/Vol] 1.09 mg/dL High 0.55-1.02 [facility] ([place] Comment on above: Performed By: #### T GOMEZ, GFR, CMP, PBNP #### [address] [address] Electrolyte Balance 7.0 mEq/L Normal 4.0-15.0 [facility] ([place] Comment on above: Performed By: #### T GOMEZ, GFR, CMP, PBNP #### [address] [address] Glucose [Mass/Vol] 194 mg/dL High 80-115 [facility] ([place] Comment on above: Performed By: #### T ROPHS, GFR, CMP, PBNP #### [address] [address] Potassium [Moles/Vol] 4.1 mmol/L Normal 3.5-5.1 [facility] ([place] Comment on above: Performed By: #### T ROPHS, GFR, CMP, PBNP #### [address] [address] Sodium [Moles/Vol] 138 mmol/L Normal 136-145 [facility] ([place] Comment on above: Performed By: #### T ROPHS, GFR, CMP, PBNP #### [place] [id number] Urea nitrogen [Mass/Vol] 10 mg/dL Normal 7-18 [facility] ([place] Comment on above: Performed By: #### T ROPHS, GFR, CMP, PBNP #### [address] [address] CBCon 05-02-2022 Erythrocyte distribution width (RBC) [Ratio] 17.0 % High 11.5-14.5 [facility] ([place] Comment on above: Performed By: #### T ROPHS, GFR, CMP, PBNP #### [place] [address] Hematocrit (Bld) [Volume fraction] 45.4 % Normal 37.0-47.0 [facility] ([place] Comment on above: Performed By: #### T ROPHS, GFR, CMP, PBNP #### [place] [id number] Hgb 14.9 G/dL Normal 12.0-16.0 [facility] ([place] Comment on above: Performed By: #### T ROPHS, GFR, CMP, PBNP #### [place] [id number] MCH (RBC) [Entitic mass] 31.4 pg High 27.0-31.2 [facility] ([place] Comment on above: Performed By: #### T ROPHS, GFR, CMP, PBNP #### [place] [address] MCHC 32.9 G/dL Low 33.0-37.0 [facility] ([place] Comment on above: Performed By: #### T ROPHS, GFR, CMP, PBNP #### [place] [id number] MCV (RBC) [Entitic vol] 95.5 fL High 80.0-94.0 A [facility] ([place] Comment on above: Performed By: #### T ROPHS, GFR, CMP, PBNP #### [address] [address] Platelet 351 10 3/mcL Normal 130-400 [facility] ([place] Comment on above: Performed By: #### T ROPHS, GFR, CMP, PBNP #### [address] [address] Platelet mean volume (Bld) [Entitic vol] 9.0 fL Normal 7.4-10.4 [facility] ([place] Comment on above: Performed By: #### T ROPHS, GFR, CMP, PBNP #### Anthony [address] [address] RBC 4.76 10 6/mcL Normal 4.20-5.40 [facility] ([place] Comment on above: Performed By: #### T ROPHS, GFR, CMP, PBNP #### [place] [address] WBC 12.6 10 3/mcL High 4.6-10.8 [facility] ([place] Comment on above: Performed By: #### T ROPHS, GFR, CMP, PBNP #### [address] [address] VITM27aw 05-02-2022 Date of Onset [id number] Invalid Interpretation Code [facility] ([place] Comment [place] above: Performed By: #### T ROPHS, GFR, CMP, PBNP #### [address] [address] Employed in Healthcare No Normal [facility] ([place] Comment on above: Performed By: #### T ROPHS, GFR, CMP, PBNP #### Anthony [address] [address] First Test No [facility] ([place] Comment [place] above: Performed By: #### T ROPHS, GFR, CMP, PBNP #### Anthony [address] [address] Hospitalized Yes Normal [facility] ([place] Comment [place] above: Performed By: #### T ROPHS, GFR, CMP, PBNP #### [place] [address] ICU No Normal [facility] ([place] Comment [place] above: Performed By: #### T ROPHS, GFR, CMP, PBNP #### [place] [address] Not [facility] ([place] Comment on above: Performed By: #### T ROPHS, GFR, CMP, PBNP #### [place] [address] Resides in Congregate Care Setting No Normal [facility] [place] Comment [place] above: Performed By: #### T ROPHS, GFR, CMP, PBNP #### [place] [address] SARS-CoV-2 (COVID-19) RNA IVANA+probe Ql (Unsp spec) Negative Normal Negative [facility] ([place] Comment [place] above: Performed By: #### T ROPHS, GFR, CMP, PBNP #### [place] [address] SARS-CoV-2 (COVID-19) RNA IVANA+probe Ql (Unsp spec) Normal [facility] ([place] Comment on above: Result Comment: Nega tive [...] tests. COVID-19 Int Performed By: #### T ROPHS, GFR, CMP, PBNP #### [facility] [address] [place], [place] [address] Symptomatic as Defined by CDC Yes Normal [facility] ([place] Comment on above: Performed By: #### T ARIELLEHS, GFR, CMP, PBNP #### [facility] [address] [place], [place] [address] LABORATORYOrdered By: Gina Feliz on 05-02-2022 Blood Glucose Testing Reason Routine (05/02/22 9:38 AM) [facility] Work Phone: Glucose [Mass/Vol] 156 mg/dL Invalid Interpretation Code 82 - 115 mg/dL [facility] Work Phone: LABORATORYOrdered By: Lisa Casas [...] B (Bld) [Mass/Vol] 344 pg/mL High 0-125 [facility] ([place] Comment on above: Result Comment: NT-p roBNP results of less than 300 pg/mL effectively rules out acute congestive heart failure with 99% negative predictive value. Performed By: #### T GOMEZ, GFR, CMP, PBNP #### [address] [address] TROPHSon 05-02-2022 Troponin I High Sensitivity 13.0 ng/L Normal 0.0-51.4 [facility] ([place] Comment on above: Performed By: #### T GOMEZ, GFR, CMP, PBNP #### [address] [address] XR CHEST 1 VIEWon 05-02-2022 XR CHEST [...] 05/02/2022 5:25:03 AM Ordering Provider: EMMANUEL KILLIAN [facility] ([place]) XR ELBOW 2V AP/LAT RTon 11-3 XR [...] healing of fracture of the olecranon process. School Laboratory Technician: SRAVANI Transcribe Date/Time: Oct 10 2021 2:44P Dictated by : ERENDIRA PAREDES MD This examination was interpreted and the report reviewed and electronically signed by: ERENDIRA PAREDES MD on Oct 10 2021 2:51PM EST [id number] [facility] 09-28-2021 [facility] Telephone (AGCARDPOB ) STEVEN KOENIG ([id number]) 1955 F Date Time Provider Department 09/28/21 TRACY RAMIRES During your visit today, we recorded the following information about you: Mely Trinidad LPN 09/28/2021 10:10 AM Signed ----- Message from Tracy Ramires APRN.SUPERVISOR [employer] sent at 09/28/2021 8:08 AM EST ----- [...] Date Reviewed: 09/28/2021 Reviewed by: Tracy Ramires APRN.SUPERVISOR [employer] - Fully Assessed Reason for Visit: Results [...] exertion [R06.00] 08/26/2021 Coronary artery disease involving [place] tolbert*09/27/2021 Encounter Status:Closed by MELY TRINIDAD on 01/04/22 Normal [facility] CBC panel Auto (Bld)on 09-27 Erythrocyte distribution width (RBC) [Ratio] 15.3 % High 11.5-15.0 [facility] Comment on above: Order Comment: Speci men Type: BLOOD SPECIMEN Performed By: #### 5 8410-2 ####[facility] LABORATORYCLIA [id number] [address] [place] OF [facility] Hematocrit (Bld) [Volume fraction] 47.2 % High 36.0-46.0 [facility] Comment on above: Order Comment: Speci men Type: BLOOD SPECIMEN Performed By: #### 5 8410-2 ####[facility] LABORATORYCLIA [id number] [address] [place] Hemoglobin (Bld) [Mass/Vol] 14.5 g/dL Normal 11.5-15.5 [facility] Comment on above: Order Comment: Speci men Type: BLOOD SPECIMEN Performed By: #### 5 8410-2 ####[facility] LABORATORYCLIA [id number] [address] MCH (RBC) [Entitic mass] 31.7 pg Normal 26.0-34.0 [facility] Comment on above: Order Comment: Speci men Type: BLOOD SPECIMEN Performed By: #### 5 8410-2 ####[facility] LABORATORYCLIA [id number] [address] MCHC (RBC) [Mass/Vol] 30.7 g/dL Normal 30.5-36.0 [facility] Comment on above: Order Comment: Speci men Type: BLOOD SPECIMEN Performed By: #### 5 8410-2 ####[facility] LABORATORYCLIA [id number] [address] MCV (RBC) [Entitic vol] 103.3 fL High 80.0-100.0 [facility] Comment on above: Order Comment: Speci men Type: BLOOD SPECIMEN Performed By: #### 5 8410-2 ####[facility] LABORATORYCLIA [id number] [address] Nucleated RBC (Bld) [#/Vol] 10*3/uL Normal <0.01 [facility] Comment on above: Order Comment: Speci men Type: BLOOD SPECIMEN Performed By: #### 5 8410-2 ####[facility] LABORATORYCLIA [id number] [address] Platelet mean volume (Bld) [Entitic vol] 10.0 fL Normal 9.0-12.7 [facility] Comment on above: Order Comment: Speci men Type: BLOOD SPECIMEN Performed By: #### 5 8410-2 ####[facility] LABORATORYCLIA [id number] [address] Platelets (Bld) [#/Vol] 398 10*3/uL Normal 150-400 [facility] Comment on above: Order Comment: Speci men Type: BLOOD SPECIMEN Performed By: #### 5 8410-2 ####[facility] LABORATORYCLIA [id number] [address] RBC (Bld) [#/Vol] 4.57 10*6/uL Normal 3.90-5.20 [facility] Comment on above: Order Comment: Speci men Type: BLOOD SPECIMEN Performed By: #### 5 8410-2 ####[facility] LABORATORYCLIA [id number] [address] WBC (Bld) [#/Vol] 7.70 10*3/uL Normal 3.70-11.00 [facility] Comment on above: Order Comment: Speci men Type: BLOOD SPECIMEN Performed By: #### 5 8410-2 ####[facility] LABORATORYCLIA [id number] [address] CNOVon 09-27-2021 CNOV Office Visit (AGCARDPOB) STEVEN KOENIG ([id number]) 1955 F Date Time Provider Department 09/27/21 [...] seen by myself on 06/12/2021 at our [place] office. Stress testing was done d/t symptoms and need for cardiac clearance. TID ratio was elevated so she was recommended a [facility] and ultimately had PCI of the LAD/D1 [...] Diagnosis Date - Acute pancreatitis 2010 [facility] - Alcohol use disorder 01/18/2016 Dr. Angie Jones, [facility] - Anxiety 12/14/2015 - Bipolar affective disorder, currently active ([facility]) 01/18/2016 Dr. Angie Jones, [facility] - Chronic bronchitis ([facility]) 07/26/2016 - Closed skull fracture ([facility]) 1994 [facility] - Coronary artery disease - DDD (degenerative disc disease), cervical - Endometriosis 2007 - Essential hypertension 12/14/2015 - GERD (gastroesophageal reflux disease) 03/13/2019 - History of colon polyps - History of gastric ulcer 12/14/2015 - HLD (hyperlipidemia) - Injury of left facial nerve 1994 - PAD (peripheral artery disease) ([facility]) 09/28/2019 - Recurrent major depression in partial remission ([facility]) 12/14/2015 - S/P drug eluting coronary stent placement 08/25/2021 LAD and Dg2 - Spinal stenosis PAST SURGICAL HISTORY Procedure Laterality Date - APPENDECTOMY 1979 - COLONOSCOP W/ OR W/O [facility] SPEC 2010 Colonoscopy - COLONOSCOPY 04/03/2017 diverticulosis- repeat 10 years - [place] FACIAL NERVE,TOTAL Left 1989 [facility] - EGD 04/03/2017 Gastritis, duodenitis, GERD [...] to treat (more content not included)... Normal [facility] LIPID PANEL BASICon 09-27-20 21 Cholesterol [Mass/Vol] 189 mg/dL Normal <200 [facility] Comment on above: Order Comment: Speci men Type: BLOOD SPECIMEN Result Comment: <200 mg/dL, Desirable 200-239 mg/dL, Borderline high >239 mg/dL, High Performed By: #### L IPB #### [facility] CLIA [id number] [address] Cholesterol in HDL [Mass/Vol] 70 mg/dL Normal >39 [facility] Comment on above: Order Comment: Speci men Type: BLOOD SPECIMEN Result Comment: 40-5 9 mg/dL, Acceptable >59 mg/dL, High: Negative risk factor for coronary heart disease <40 mg/dL, Low: Positive risk factor for coronary heart disease Performed By: #### L IPB #### [facility] CLIA [id number] [address] Cholesterol in LDL [Mass/Vol] 101 mg/dL High <100 [facility] Comment on above: Order Comment: Speci men Type: BLOOD SPECIMEN Result Comment: <100 mg/dL, Optimal 100-129 mg/dL, Near optimal/above optimal 130-159 mg/dL, Borderline high 160-189 mg/dL, High >189 mg/dL, Very high Secondary prevention optimal LDL Cholesterol levels are recommended to be < 70 mg/dL Performed By: #### L IPB #### [facility] CLIA [id number] [address] Cholesterol in LDL/Cholesterol in HDL [Mass ratio] 1.44 {ratio} Normal <2.54 [facility] Comment on above: Order Comment: Speci men Type: BLOOD SPECIMEN Result Comment: Refe rence: 1. National Cholesterol Education Program ATP III Guideline At-A-Glance Quick Desk Reference: National Heart, Lung, and Blood [place]. National Institutes of Health. 2001: NIH Publication No. 01-3305. 2. An International Atherosclerosis Society position paper: global recommendations for the management of dyslipidemia: executive summary, Atherosclerosis. 2014: 232(2):410-413. Performed By: #### L IPB #### [facility] CLIA [id number] [address] Cholesterol in VLDL [Mass/Vol] 18 mg/dL Normal <30 [facility] Comment on above: Order Comment: Speci men Type: BLOOD SPECIMEN Performed By: #### L IPB #### [facility] CLIA [id number] [address] Cholesterol non HDL [Mass/Vol] 119 mg/dL Normal <130 [facility] Comment on above: Order Comment: Speci men Type: BLOOD SPECIMEN Result Comment: <130 mg/dL, Optimal 130-159 mg/dL, Near optimal/above optimal 160-189 mg/dL, Borderline high 190-219 mg/dL, High >219 mg/dL, Very high Secondary prevention optimal non HDL Cholesterol levels are recommended to be <100 mg/dL Performed By: #### L IPB #### [facility] CLIA [id number] [address] Cholesterol.total/Izabella sterol in HDL [Mass ratio] 2.70 {ratio} Normal <5.10 [facility] Comment on above: Order Comment: Speci men Type: BLOOD SPECIMEN Performed By: #### L IPB #### [facility] CLIA [id number] [address] FASTING TIME 12 hrs Normal [facility] Comment on above: Order Comment: Speci men Type: BLOOD SPECIMEN Performed By: #### L IPB #### [facility] CLIA [id number] [address] Triglyceride [Mass/Vol] 88 mg/dL Normal <150 A [facility] Comment on above: Order Comment: Speci men Type: BLOOD SPECIMEN Result Comment: <150 mg/dL, Normal 150-199 mg/dL, Borderline high 200-499 mg/dL, High >499 mg/dL, Very high Performed By: #### L IPB #### [facility] CLIA [id number] [address] Frank 09-01-2021 JEOVANNY Telephone (EARNESTINE) CLARISSESTEVEN NOVOA ([id number]) 1955 F Date Time Provider Department 09/01/21 [...] minutes, none*09/28/2019 07/07/2020 PAD (peripheral artery disease) ([facility]) [I73.9] 09/28/2019 Anxiety and depression [F41.9, F32.A] 10/06/2019 Hypomagnesemia [E83.42] 10/22/2019 10/23/2019 Asthma [J45.909] 07/07/2020 07/07/2020 Prediabetes [R73.03] 02/04/2021 Chest pain [R07.9] 05/08/2021 Other chest pain [R07.89] 05/08/2021 Stenosis of carotid artery [I65.29] 05/08/2021 Mixed hyperlipidemia [E78.2] 05/08/2021 Abnormal stress test [R94.39] 08/26/2021 Dyspnea on exertion [R06.00] 08/26/2021 Encounter Status:Closed by TRACY RAMIRES on 09/01/21 [facility] CNPN Telephone (AKCRL) STEVEN KOENIG ([id number]) 1955 F Date Time Provider Department 09/01/21 GUILLERMO MCGILL During your visit today, we recorded the following information about you: Guillermo Mcgill Netbackup Administrator 09/01/2021 10:44 AM Signed Faxed to [place] based on location. Guillermo Mcgill CEP, Cardiopulmonary Rehab [id number] Allergies As of Date: 09/01/2021 (No Known Allergies) Date Reviewed: 08/31/2021 Reviewed by: Babatunde Lomeli MD - Fully Assessed Reason for Visit: Cardiac Rehab [9810] Prescriptions as of 09/01/2021 - oxyCODONE-acetaminophen (PERCOCET) [...] Encounter Status:Closed by GUILLERMO MCGILL [facility]01/21 [facility] HNO [facility]: [id number] Author: Claude Thao MD Service: Interventional Cardiology [...] 90 tab (more content not included)... Normal [facility] BRIEF OP NOTon 08-25-2021 BRIEF OP NOT HNO ID: [id number] Author: Juan Ramon Pichardo MD Service: Cardiovascular [...] LAD portion of the stent 3.7mm, with latter day of blood flow, no residual stenosis. No complications. Recommend: ASA/Plavix Continue other guideline directed medical therapy Juan Ramon Kemp MD Sheet Metal Assembler And Riveter of Internal Medicine [facility] Regional Section of Interventional Cardiology Wool Grader of Structural Heart Disease [address], [address] [place] [address] Facsimile: [phone] Email: [email or web address] Normal [facility] Basic metabolic 2000 panelon 08-25-2021 Anion gap [Moles/Vol] 14 mmol/L Normal 9-18 [facility] Comment on above: Order Comment: Speci men Type: BLOOD SPECIMEN Performed By: #### 2 4321-2 ####[facility] [id number] [place] [address] [place] Calcium [Mass/Vol] 9.2 mg/dL Normal 8.5-10.2 [facility] Comment on above: Order Comment: Speci men Type: BLOOD SPECIMEN Performed By: #### 2 4321-2 ####[facility] [id number] [address] Chloride [Moles/Vol] 102 mmol/L Normal 97-105 [facility] Comment on above: Order Comment: Speci men Type: BLOOD SPECIMEN Performed By: #### 2 4321-2 ####[facility] [id number] [address] CO2 [Moles/Vol] 21 mmol/L Low 22-30 [facility] Comment on above: Order Comment: Speci men Type: BLOOD SPECIMEN Performed By: #### 2 4321-2 ####[facility] [id number] [address] Creatinine [Mass/Vol] 0.72 mg/dL Normal 0.58-0.96 [facility] Comment on above: Order Comment: Speci men Type: BLOOD SPECIMEN Performed By: #### 2 4321-2 ####[facility] [id number] [address] GFR/1.73 sq M.predicted MDRD (S/P/Bld) [Vol rate/Area] mL/min/{1.73_m2} Normal [facility] Comment on above: Order Comment: Speci [...] actual GFR. Performed By: #### 2 4321-2 ####[facility] [id number] [address] [place] Glucose [Mass/Vol] 92 mg/dL Normal 74-99 [facility] Comment on above: Order Comment: Speci men Type: BLOOD SPECIMEN Result Comment: The [place] Diabetes Association (ADA) provides guidance for cutoff [...] Standards of Medical Care in Diabetes 2016, [place] [employer]. Diabetes Care. 2016.39(Suppl 1). Performed By: #### 2 4321-2 ####[facility] [id number] [address] [place] Potassium [Moles/Vol] 4.7 mmol/L Normal 3.7-5.1 [facility] Comment on above: Order Comment: Speci men Type: BLOOD SPECIMEN Performed By: #### 2 4321-2 ####[facility] [id number] [address] [place] Sodium [Moles/Vol] 137 mmol/L Normal 136-144 [facility] Comment on above: Order Comment: Speci men Type: BLOOD SPECIMEN Performed By: #### 2 4321-2 ####[facility] [id number] [place] [address] [place] Urea nitrogen [Mass/Vol] 11 mg/dL Normal 7-21 [facility] Comment on above: Order Comment: Speci men Type: BLOOD SPECIMEN Performed By: #### 2 4321-2 ####[facility] [id number] [address] [place] CBC panel Auto (Bld)on 08-25 Erythrocyte distribution width (RBC) [Ratio] 15.4 % High 11.5-15.0 [facility] Comment on above: Order Comment: Speci men Type: BLOOD SPECIMEN Performed By: #### 5 8410-2 #### [facility] CLIA [id number] [address] Hematocrit (Bld) [Volume fraction] 46.7 % High 36.0-46.0 [facility] Comment on above: Order Comment: Speci men Type: BLOOD SPECIMEN Performed By: #### 5 8410-2 #### [facility] CLIA [id number] [address] Hemoglobin (Bld) [Mass/Vol] 14.9 g/dL Normal 11.5-15.5 [facility] Comment on above: Order Comment: Speci men Type: BLOOD SPECIMEN Performed By: #### 5 8410-2 #### [facility] CLIA [id number] [address] MCH (RBC) [Entitic mass] 31.6 pg Normal 26.0-34.0 [facility] Comment on above: Order Comment: Speci men Type: BLOOD SPECIMEN Performed By: #### 5 8410-2 #### [facility] CLIA [id number] [address] MCHC (RBC) [Mass/Vol] 31.9 g/dL Normal 30.5-36.0 [facility] Comment on above: Order Comment: Speci men Type: BLOOD SPECIMEN Performed By: #### 5 8410-2 #### [facility] CLIA [id number] [address] MCV (RBC) [Entitic vol] 98.9 fL Normal 80.0-100.0 [facility] Comment on above: Order Comment: Speci men Type: BLOOD SPECIMEN Performed By: #### 5 8410-2 #### [facility] CLIA [id number] [address] Nucleated RBC (Bld) [#/Vol] 10*3/uL Normal <0.01 [facility] Comment on above: Order Comment: Speci men Type: BLOOD SPECIMEN Performed By: #### 5 8410-2 #### [facility] CLIA [id number] [address] Platelet mean volume (Bld) [Entitic vol] 10.4 fL Normal 9.0-12.7 [facility] Comment on above: Order Comment: Speci men Type: BLOOD SPECIMEN Performed By: #### 5 8410-2 #### [facility] CLIA [id number] [address] Platelets (Bld) [#/Vol] 375 10*3/uL Normal 150-400 [facility] Comment on above: Order Comment: Speci men Type: BLOOD SPECIMEN Performed By: #### 5 8410-2 #### [facility] CLIA [id number] [address] RBC (Bld) [#/Vol] 4.72 10*6/uL Normal 3.90-5.20 [facility] Comment on above: Order Comment: Speci men Type: BLOOD SPECIMEN Performed By: #### 5 8410-2 #### [facility] CLIA [id number] [address] WBC (Bld) [#/Vol] 10.76 10*3/uL Normal 3.70-11.00 [facility] Comment on above: Order Comment: Speci men Type: BLOOD SPECIMEN Performed By: #### 5 8410-2 #### [facility] CLIA [id number] [address] HISTORY PHYSICALon HISTORY PHYSICAL HNO ID: [id number] Author: Juan Ramon Pichardo MD Service: Cardiovascular [...] August 25, 2021 TIME: 9:00 AM Normal [facility] CNPNon 08-15-2021 JEOVANNY Telephone (AGCARDPOB ) STEVEN KOENIG ([id number]) 1955 F Date Time Provider Department 08/15/21 TRACY RAMIRES During your visit today, we recorded the following information about you: Suzy Cordero RN 08/15/2021 8:11 AM Signed ----- Message from Tracy Ramires APRN.SUPERVISOR MOLD YARD sent at 08/15/2021 7:51 AM EDT ----- [...] type [R07.9] Pre-operative cardiovascular examination [Z01.810] Order(s):CARDIAC CHARGE ACCOUNTS AUDIT CLERK ORDER [9296880] Order #: [id number]: 1 CBC [[facility]] Order #: [id number] FUTURE Prescriptions as of 08/16/2021 - oxyCODONE-acetaminophen [...] depression i (more content not included)... Normal [facility] NM CARDIAC PERF STRESS/PHARM on 08-14-2021 NM CARDIAC PERF STRESS/PHARM * * *Final Report* * * DATE OF EXAM: Aug 14 2021 4:02PM KELI 0006 - NM CARDIAC PERF STRESS/PHARM / PROCEDURE REASON: multiple diagnoses * * * * Physician Interpretation * * * * Stress Feather Mixer Report: [facility] Date of service: 08/14/2021 3:00:40 [...] later. See administered doses below. [facility] Date of service: 08/14/2021 3:00:40 [...] Final ---- Stress ECG Report: [facility] Date of service: 08/14/2021 3:00:40 PM Ordering physician: TRACY RAMIRES Specialist: Grace Sagastume Assistant Press Operator Offset: Guera Fowler Stress ECG interpreting physician: Armando [...] 146/80 mmHg. The double product achieved was [address]7950. Indication: Shortness of breath Medical History and [...] / 80 mmHg Rate Pressure Product (RPP): 57148 St (more content not included)... [facility] Frank 06-21-2021 JEOVANNY Telephone (AGCARDPOB ) STEVEN KOENIG ([id number]) 1955 F Date Time Provider Department 06/21/21 TRACY RAMIRES During your visit today, we recorded the following information about you: Tracy Alan LPN 06/21/2021 8:38 AM Signed ----- Message from Tracy Ramires APRN.SUPERVISOR MOLD YARD sent at 06/21/2021 7:27 AM EDT ----- Please call patient and let her know she has mild non obstructive carotid disease. Thank you! Tracy Alan LPN 06/21/2021 8:40 AM Signed I called and left a message for to call [facility] for test results. PETERSON Grover LPN [...] Encounter Status:Closed by DIANA MAHAN on 06/21/21 [facility] No Panel InformationOrdered By: Ccf Provider on 01-27-2021 [facility] XR Chest PA and Lateralon IMPRESSION: 1. Findings compatible with underlying emphysema. 2. Mild opacity at the left lateral base, atelectasis versus focus of bronchopneumonia in the appropriate clinical setting. Follow-up to resolution is advised. School Laboratory Technician: PSCB Transcribe Date/Time: Jan 27 2021 11:43A Dictated by : ERENDIRA PAREDES MD This examination was interpreted and the report reviewed and electronically signed by: ERENDIRA PAREDES MD on Jan 27 2021 11:45AM [facility] DIVISION OF RADIOLOGY * * *Final Report* [...] fractures again identified. DIVISION OF RADIOLOGY Provider, [facility] - 01/27/2021 * * *Final Report* * [...] clinical setting. Follow-up to resolution is advised. School Laboratory Technician: SRAVANI Transcribe Date/Time: Jan 27 2021 11:43A Dictated by : ERENDIRA PAREDES MD This examination was interpreted and the report reviewed and electronically signed by: ERENDIRA PAREDES MD on Jan 27 2021 11:45AM [facility] Radiology Study observation (narrative) [facility] XR HIP BILAT 5V PEL/AP/LAT E ACH [...] Impression: 1. No acute fracture or dislocation. School Laboratory Technician: ROBERTS CHAPELRussell Transcribe Date/Time: Jan 27 2021 11:57A Dictated by : ANASTASIYA GIBBS MD This examination was interpreted and the report reviewed and electronically signed by: ANASTASIYA GIBBS MD on Jan 27 2021 11:58AM [facility] DIVISION OF RADIOLOGY Provider, [facility] - 01/27/2021 * * *Final Report* * [...] Impression: 1. No acute fracture or dislocation. School Laboratory Technician: [facility] Transcribe Date/Time: Jan 27 2021 11:57A Dictated by : ANASTASIYA GIBBS MD This examination was interpreted and the report reviewed and electronically signed by: ANASTASIYA GIBBS MD on Jan 27 2021 11:58AM EST [facility] Radiology Study observation (narrative) [facility] Basic Metabolic Panelon 06-2 Calcium 8.4 mg/dL Normal 8.2-10.1 [facility] Comment on above: Result Comment: Repe ated Performed By: #### H EMDF, BMP3 ####[facility] [address] [place] [address] Chloride 100 mmol/L Normal 98-109 [facility] Comment on above: Result Comment: Repe ated Performed By: #### H EMDF, BMP3 ####[facility] [email or web address] [address] [place] [address] Sodium 134 mmol/L Low 135-145 [facility] Comment on above: Result Comment: Repe ated Performed By: #### H EMDF, BMP3 ####[facility] [email or web address] [address] [place] [address] Anion gap 7 Normal [facility] Comment on above: Performed By: #### H EMDF, BMP3 ####[facility] [email or web address] [address] [place] [address] CO2 27 mmol/L Normal 21-32 [facility] Comment on above: Performed By: #### H EMDF, BMP3 ####[facility] [address] [place] [address] Creatinine 0.79 mg/dL Normal 0.55-1.40 [facility] Comment on above: Performed By: #### H EMDF, BMP3 ####[facility] [address] [place] [address] eGFR (black) mL/min/{1.73_m2} Normal >60 [facility] Comment on above: Performed By: #### H EMDF, BMP3 ####[facility] [address] [place] [address] eGFR (non-black) mL/min/{1.73_m2} Normal >60 [facility] Comment on above: Result Comment: Sour ce- MDRD equation with creatinine calibration to IDMS(NKDEP) eGFR not recommended for drug dose adjustment Performed By: #### H EMDF, BMP3 ####[facility] [address] [place] [address] Glucose mass conc 98 mg/dL Normal 70-100 [facility] Comment on above: Performed By: #### H AURELIOF BMP3 ####[address] [address] Potassium molar conc 4.6 mmol/L Normal 3.5-5.1 [facility] [employer] Comment on above: Performed By: #### H EMDF, BMP3 ####[address] [address] Urea nitrogen 20 mg/dL Normal 7-25 [facility] Comment on above: Performed By: #### H GREY BMP3 ####[facility] [email or web address] [address] [address] Glucose,Bedsideon 05-04-2018 Glucose mass conc 99 mg/dL Normal 70-100 [facility] Comment on above: Result Comment: Test performed by glucose meter. Results may be 10%-15% lowerthan serum/plasma values. (CLIA ID [id number]) Performed By: #### B GLU ####[facility] [email or web address] [address] [address] Hemogram w/ Autodiffon 05-04 Abs Baso Cnt 0.1 10*3/uL Normal 0.0-0.2 [facility] Comment on above: Performed By: #### H EMDF, BMP3 ####[facility] [employer] [address] [address] Basophils/100 WBC Auto (Bld) 1.0 % Normal 0.0-2.0 [facility] Comment on above: Performed By: #### H EMDF, BMP3 ####[facility] [email or web address] [address] [address] Eosinophils 0.4 10*3/uL Normal 0.0-0.5 [facility] Comment on above: Performed By: #### H EMDF, BMP3 ####[facility] [email or web address] [address] [address] Eosinophils/100 leukocytes 4.3 % Normal 1.0-6.0 [facility] Comment on above: Performed By: #### H EMDF, BMP3 ####[place] [address] [place] [address] Erythrocyte distribution width Auto Ratio (RBC) 14.7 % High 11.5-14.5 [facility] Comment on above: Performed By: #### H EMDF, BMP3 ####[address] [address] Erythrocytes (RBC) 4.10 10*6/uL Normal 3.80-5.20 [facility] Comment on above: Performed By: #### H EMDF, BMP3 ####[address] [address] Granulocytes/100 WBC (Bld) 57.2 % Normal 40.0-80.0 [facility] Comment on above: Performed By: #### H EMDF, BMP3 ####[address] [address] Hematocrit (HCT) 40.2 % Normal 35.0-47.0 [facility] Comment on above: Performed By: #### H EMDF, BMP3 ####[address] [address] Hemoglobin mass conc (Bld) 13.3 g/dL Normal 11.7-16.0 [facility] Comment on above: Performed By: #### H EMDF, BMP3 ####[address] [address] Lymphocytes 2.5 10*3/uL Normal 1.0-4.3 [facility] Comment on above: Performed By: #### H EMDF, BMP3 ####[address] [address] Lymphocytes/100 leukocytes 27.6 % Normal 20.0-40.0 [facility] Comment on above: Performed By: #### H EMDF, BMP3 ####[address] [address] MCH 32.5 pg Normal 26.0-34.0 [facility] Comment on above: Performed By: #### H EMDF, BMP3 ####[facility] [address] [place] [address] MCHC mass conc (RBC) 33.0 % Normal 32.0-36.0 [facility] Comment on above: Performed By: #### H EMDF BMP3 ####[address] [address] MCV 98.2 fL High 79.0-98.0 [facility] Comment on above: Performed By: #### H EMDRamírez BMP3 ####[address] [address] Monocytes 0.9 10*3/uL High 0.0-0.8 [facility] Comment on above: Performed By: #### H GREY BMP3 ####[address] [address] Monocytes/100 leukocytes 9.9 % Normal 2.0-10.0 [facility] Comment on above: Performed By: #### H GREY BMP3 ####[address] [address] Neutrophils 5.2 10*3/uL Normal 1.8-7.0 [facility] Comment on above: Performed By: #### H GREY BMP3 ####[address] [address] Platelet mean volume (PMV) 8.8 fL Normal 7.4-10.4 [facility] Comment on above: Performed By: #### H EMDF BMP3 ####[address] [address] Platelets 362 10*3/uL Normal 140-440 [facility] Comment on above: Performed By: #### H EMDF BMP3 ####[address] [address] WBC (Leukocytes) 9.1 10*3/uL Normal 3.6-10.7 [facility] Comment on above: Performed By: #### H EMDF BMP3 ####[address] [address] Ethanol Serum/Plasmaon 04-30 Ethanol-Serum/Plasma < 0.010 Normal 0.000-0.010 [facility] Comment on above: Result Comment: NOTE : This result is for medical treatment only. Analysis performed using non-forensic procedures. Performed By: #### H EMDF, CMP3, QWAL, ETOH4 ####[facility] [email or web address] [address] [place], [place] HCG,Urine Qualon 04-30-2018 HCG.beta subunit ( test) Ql (U) Negative Normal Negative [facility] Comment on above: Result Comment: Preg ismael is the most common reason for HCG in urine, althoughchoriocarcinoma, hydatidiform mole, and certain nontropho-blastic malignancies also result in detectable urinary HCGlevels. Sensitivity = 20mIU/mL. Performed By: #### U AMAC, DRGA4, HCGUR ####[place] [address] [place], [place] Comp Metabolic Panelon 04-29 Alanine aminotransferase (ALT) 26 U/L Normal 13-69 [facility] Comment on above: Performed By: #### H EMDF, CMP3, QWAL, ETOH4 ####[facility] [email or web address] [address] [place] Alkaline phosphatase (ALP) 65 U/L Normal 38-126 [facility] Comment on above: Performed By: #### H EMDF, CMP3, QWAL, ETOH4 ####[facility] [employer] [address] [place] Anion gap 10 Normal [facility] Comment on above: Performed By: #### H EMDF, CMP3, QWAL, ETOH4 ####[facility] [email or web address] [address] [place], [place] Aspartate aminotransferase (AST) 23 U/L Normal 15-46 [facility] Comment on above: Performed By: #### H EMDF, CMP3, QWAL, ETOH4 ####[facility] [employer] [address] [place], [place] Calcium 9.1 mg/dL Normal 8.4-10.2 [facility] Comment on above: Performed By: #### H EMDF, CMP3, QWAL, ETOH4 ####[place] [address] [place], [place] CO2 24 mmol/L Normal 22-30 [facility] Comment on above: Performed By: #### H EMDF, CMP3, QWAL, ETOH4 ####[place] [address] [place], [place] Glucose mass conc 144 mg/dL High 70-100 [facility] Comment on above: Performed By: #### H EMDF, CMP3, QWAL, ETOH4 ####[address] Protein 7.2 g/dL Normal 6.3-8.2 [facility] Comment on above: Performed By: #### H EMDF, CMP3, QWAL, ETOH4 ####[address] Urea nitrogen 14 mg/dL Normal 7-20 [facility] Comment on above: Performed By: #### H EMDF, CMP3, QWAL, ETOH4 ####[address] Bilirubin (total) 0.3 mg/dL Normal 0.2-1.3 [facility] Comment on above: Performed By: #### H EMDF, CMP3, QWAL, ETOH4 ####[address] Creatinine 0.74 mg/dL Normal 0.52-1.25 [facility] Comment on above: Performed By: #### H EMDF, CMP3, QWAL, ETOH4 ####[place] [place], [place] eGFR (black) mL/min/{1.73_m2} Normal >60 [facility] Comment on above: Performed By: #### H EMDF, CMP3, QWAL, ETOH4 ####[place] [place], [place] eGFR (non-black) mL/min/{1.73_m2} Normal >60 [facility] Comment on above: Result Comment: Sour ce- MDRD equation with creatinine calibration to IDMS(NKDEP) eGFR not recommended for drug dose adjustment Performed By: #### H EMDF, CMP3, QWAL, ETOH4 ####[facility] [place], [place] Albumin 4.4 g/dL Normal 3.5-5.0 [facility] Comment on above: Performed By: #### H EMDF, CMP3, QWAL, ETOH4 ####[place] [address] [place], [place] Chloride 106 mmol/L Normal 98-107 [facility] Comment on above: Performed By: #### H EMDF, CMP3, QWAL, ETOH4 ####[place] [address] [place], [place] Potassium molar conc 4.4 mmol/L Normal 3.5-5.1 [facility] Comment on above: Performed By: #### H EMDF, CMP3, QWAL, ETOH4 ####[place] [place], [place] Sodium 141 mmol/L Normal 137-145 [facility] Comment on above: Performed By: #### H EMDF, CMP3, QWAL, ETOH4 ####[facility] [place], [place] Drugs of Abuseon 04-29-2018 Cocaine, Ur Negative Normal [facility] Comment on above: Performed By: #### U AMAC, DRGA4, HCGUR ####[place] [address] [place], [place] Phencyclidine (PCP), Ur Negative Normal [facility] Comment on above: Result Comment: The [...] Performed By: #### U AMAC, DRGA4, HCGUR ####[address] [place], [place] Methadone, Ur Negative Normal [facility] Comment on above: Performed By: #### U AMAC, DRGA4, HCGUR ####[address] Opiates, Ur Negative Normal [facility] Comment on above: Performed By: #### U AMAC, DRGA4, HCGUR ####[address] Benzodiazepines, Ur Negative Normal [facility] Comment on above: Performed By: #### U AMAC, DRGA4, HCGUR ####[address] Amphetamines, Ur Negative Normal [facility] Comment on above: Performed By: #### U AMAC, DRGA4, HCGUR ####[address] Barbiturates, Ur Negative Normal [facility] Comment on above: Performed By: #### U AMAC, DRGA4, HCGUR ####[address] Oxycodone/Oxymorphine,U r Negative Normal [facility] Comment on above: Performed By: #### U AMAC, DRGA4, HCGUR ####[address] Hemogram w/ Autodiffon 04-29 Abs Baso Cnt 0.1 10*3/uL Normal 0.0-0.2 [facility] Comment on above: Performed By: #### H EMDF, CMP3, QWAL, ETOH4 ####[address] Basophils/100 WBC Auto (Bld) 1.1 % Normal 0.0-2.0 [facility] Comment on above: Performed By: #### H EMDF, CMP3, QWAL, ETOH4 ####[id number] [place], [place] Eosinophils 0.3 10*3/uL Normal 0.0-0.5 [facility] Comment on above: Performed By: #### H EMDF, CMP3, QWAL, ETOH4 ####[address] Eosinophils/100 leukocytes 3.3 % Normal 1.0-6.0 [facility] Comment on above: Performed By: #### H EMDF, CMP3, QWAL, ETOH4 ####[address] Erythrocyte distribution width Auto Ratio (RBC) 14.8 % High 11.5-14.5 [facility] Comment on above: Performed By: #### H EMDF, CMP3, QWAL, ETOH4 ####[address] Erythrocytes (RBC) 4.26 10*6/uL Normal 3.80-5.20 [facility] Comment on above: Performed By: #### H EMDF, CMP3, QWAL, ETOH4 ####[address] Granulocytes/100 WBC (Bld) 54.6 % Normal 40.0-80.0 [facility] Comment on above: Performed By: #### H EMDF, CMP3, QWAL, ETOH4 ####[address] Hematocrit (HCT) 42.5 % Normal 35.0-47.0 [facility] Comment on above: Performed By: #### H EMDF, CMP3, QWAL, ETOH4 ####[address] Hemoglobin mass conc (Bld) 14.1 g/dL Normal 11.7-16.0 [facility] Comment on above: Performed By: #### H EMDF, CMP3, QWAL, ETOH4 ####[address] Lymphocytes 3.1 10*3/uL Normal 1.0-4.3 [facility] Comment on above: Performed By: #### H EMDF, CMP3, QWAL, ETOH4 ####[address] Lymphocytes/100 leukocytes 32.8 % Normal 20.0-40.0 [facility] Comment on above: Performed By: #### H EMDF, CMP3, QWAL, ETOH4 ####[address] MCH 33.1 pg Normal 26.0-34.0 [facility] Comment on above: Performed By: #### H EMDF, CMP3, QWAL, ETOH4 ####[address] MCHC mass conc (RBC) 33.2 % Normal 32.0-36.0 [facility] Comment on above: Performed By: #### H EMDF, CMP3, QWAL, ETOH4 ####[address] MCV 99.8 fL High 79.0-98.0 [facility] Comment on above: Performed By: #### H EMDF, CMP3, QWAL, ETOH4 ####[address] Monocytes 0.8 10*3/uL Normal 0.0-0.8 [facility] Comment on above: Performed By: #### H EMDF, CMP3, QWAL, ETOH4 ####[address] Monocytes/100 leukocytes 8.2 % Normal 2.0-10.0 [facility] Comment on above: Performed By: #### H EMDF, CMP3, QWAL, ETOH4 ####[id number] [place], [place] Neutrophils 5.2 10*3/uL Normal 1.8-7.0 [facility] Comment on above: Performed By: #### H EMDF, CMP3, QWAL, ETOH4 ####[id number] [place], [place] Platelet mean volume (PMV) 8.5 fL Normal 7.4-10.4 [facility] Comment on above: Performed By: #### H EMDF, CMP3, QWAL, ETOH4 ####[id number] [place], [place] Platelets 380 10*3/uL Normal 140-440 [facility] Comment on above: Performed By: #### H EMDF, CMP3, QWAL, ETOH4 ####[address] WBC (Leukocytes) 9.6 10*3/uL Normal 3.6-10.7 [facility] Comment on above: Performed By: #### H EMDF, CMP3, QWAL, ETOH4 ####[id number] [place], [place] Urinalysis,Macroon 8 Bilirubin (direct) Negative Normal Negative [facility] Comment on above: Performed By: #### U AMAC, DRGA4, HCGUR ####[id number] [place], [place] Ketone,Urine Negative Normal Negative [facility] Comment on above: Performed By: #### U AMAC, DRGA4, HCGUR ####[id number] [place], [place] Occult Blood,Ur Negative Normal Negative [facility] Comment on above: Performed By: #### U AMAC, DRGA4, HCGUR ####[id number] [place], [place] Specific [place],Urine 1.015 Normal 1.005-1.030 [facility] Comment on above: Performed By: #### U AMAC, DRGA4, HCGUR ####[id number] [place], [place] Total Protein,Urine Negative Normal Negative [facility] Comment on above: Performed By: #### U AMAC, DRGA4, HCGUR ####[id number] [place], [place] Urine, appearance clear Normal Clear [facility] Comment on above: Performed By: #### U AMAC, DRGA4, HCGUR ####[id number] [place], [place] Urine, color yellow Normal Lt. Yellow [facility] Comment on above: Performed By: #### U AMAC, DRGA4, HCGUR ####[id number] [place], [place] Urine, glucose presence NORM Normal Negative [facility] Comment on above: Performed By: #### U AMAC, DRGA4, HCGUR ####[address] [place], [place] Urine, nitrite presence Negative Normal Negative [facility] Comment on above: Performed By: #### U AMAC, DRGA4, HCGUR ####[address] [place], [place] Urine, pH 5.0 Normal 5.0-8.0 [facility] Comment on above: Performed By: #### U AMAC, DRGA4, HCGUR ####[id number] [place], [place] Urine, urobilinogen NORM Normal 0-1 [facility] Comment on above: Performed By: #### U AMAC, DRGA4, HCGUR ####[id number] [place], [place] WBC (Leukocytes) Negative Normal Negative [facility] Comment on above: Performed By: #### U AMAC, DRGA4, HCGUR ####[id number] [place], [place] hCG Qual [place] 04-29-2018 hCG Qual Preg QUESTIONABLE Abnormal [facility] Comment on above: Result Comment: REF RANGE:Negative .... < 3Questionable Rpt 48-72 HrPositive ..... > 10 Performed By: #### H EMDF, CMP3, QWAL, ETOH4 ####[facility] [email or web address] [id number] [place] [address] Vital Signs Date Time Vital Sign Value Performing Clinician Facility 03-06-2025 11:36-0400 Heart rate 79 /min TIFFANY HANSEN DO [address] [place] [address] 03-06-2025 11:36-0400 Respiratory rate 20 /min TIFFANY JADE DO [facility] 03-06-2025 11:35-0400 Body temperature 98.6 [degF] TIFFANY JADE DO [address] [place] [address] 03-06-2025 11:35-0400 Diastolic Blood Pressure Non-Invasive 63 mm[Hg] TIFFANY HANSEN DO [facility] 03-06-2025 11:35-0400 Heart rate 82 /min TIFFANY JADE DO [facility] 03-06-2025 11:35-0400 Reason For Taking VItal Signs TIFFANY JADE DO [facility] 03-06-2025 11:35-0400 Respiratory rate 20 /min TIFFANY JADE DO [facility] 03-06-2025 11:35-0400 Systolic Blood Pressure Non-Invasive 90 mm[Hg] TIFFANY HANSEN DO [facility] 03-06-2025 08:04-0400 Heart rate 74 /min TIFFANY PABONERLY DO [facility] 03-06-2025 06:48-0400 Body temperature 98.06 [degF] TIFFANY JADE DO [facility] 03-06-2025 06:48-0400 Diastolic Blood Pressure Non-Invasive 75 mm[Hg] TIFFANY HANSEN DO [facility] 03-06-2025 06:48-0400 Heart rate 50 /min TIFFANY HANSEN DO [facility] 03-06-2025 06:48-0400 Reason For Taking VItal Signs TIFFANY HANSEN DO [facility] 03-06-2025 06:48-0400 Respiratory rate 20 /min TIFFANY HANSEN DO [facility] 03-06-2025 06:48-0400 Systolic Blood Pressure Non-Invasive 94 mm[Hg] TIFFANY HANSEN DO [facility] 03-06-2025 03:17-0400 Body temperature 97.88 [degF] TIFFANY HANSEN DO [facility] 03-06-2025 03:17-0400 Diastolic Blood Pressure Non-Invasive 61 mm[Hg] TIFFANY HANSEN DO [facility] 03-06-2025 03:17-0400 Reason For Taking VItal Signs TIFFANY HANSEN DO [facility] 03-06-2025 03:17-0400 Systolic Blood Pressure Non-Invasive 99 mm[Hg] TIFFANY HANSEN DO [facility] 03-05-2025 16:10-0400 Heart rate 79 /min TIFFANY HANSEN DO [facility] 03-05-2025 11:26-0400 Heart rate 68 /min TIFFANY HANSEN DO [facility] 03-05-2025 08:39-0400 Heart rate 75 /min TIFFANY JADE DO [facility] 03-05-2025 06:20-0400 Heart rate 81 /min TIFFANY JADE DO [facility] 03-04-2025 16:31-0400 Heart rate 90 /min TIFFANY JADE DO [facility] 03-04-2025 07:59-0400 Body height 165.1 cm TIFFANY JADE DO [facility] 03-04-2025 07:59-0400 Body temperature 98.06 [degF] TIFFANY JADE DO [address] [place] [address] 03-04-2025 07:59-0400 Body weight 58.3 kg [address]FFANY JADE DO [facility] 03-04-2025 07:59-0400 Body weight 21.39 kg/m2 TIFFANY JADE DO [facility] 03-04-2025 05:51-0400 Body weight 58.3 kg TIFFANY JADE DO [facility] 12-14-2024 06:46-0500 Body height 162.[address] MILO ESTEBAN MD [facility] 12-14-2024 06:46-0500 Body temperature 97.88 [degF] DR MILO ESTEBAN MD [facility] 12-14-2024 06:46-0500 Body weight 50.[address] MILO ESTEBAN MD [facility] 12-14-2024 06:46-0500 Diastolic Blood Pressure Non-Invasive 82 mm[Hg] DR MILO ESTEBAN MD [facility] 12-14-2024 06:46-0500 Heart rate 77 /min DR MILO ESTEBAN MD [facility] 12-14-2024 06:46-0500 Respiratory rate 16 /min DR MILO ESTEBAN MD [facility] 12-14-2024 06:46-0500 Systolic Blood Pressure Non-Invasive 122 mm[Hg] DR MILO ESTEBAN MD [facility] 05-09-2023 13:16-0400 Body height 160 cm Mely Kendrick PA-C Work Phone: [facility] 05-09-2023 13:16-0400 Body weight 57.15 kg Mely Kendrick PA-C Work Phone: [facility] 05-09-2023 13:16-0400 Diastolic blood pressure 90 mm[Hg] Mely Kendrick PA-C Work Phone: [facility] 05-09-2023 13:16-0400 Heart rate 83 /min Mely Kendrick PA-C Work Phone: [facility] 05-09-2023 13:16-0400 Respiratory rate 18 /min Mely Kendrick PA-C Work Phone: [facility] 05-09-2023 13:16-0400 SaO2% (BldA) [Mass fraction] 94 % Mely Kendrick PA-C Work Phone: [facility] 05-09-2023 13:16-0400 Systolic blood pressure 140 mm[Hg] Mely Kendrick PA-C Work Phone: [facility] 05-08-2023 12:01-0400 Body weight 56.25 kg Oly Older [employer] MACHINE OPERATOR.SUPERVISOR [employer] Work Phone: [facility] 05-08-2023 12:01-0400 Diastolic blood pressure 88 mm[Hg] Oly Older [employer] MACHINE OPERATOR.SUPERVISOR [employer] Work Phone: [facility] 05-08-2023 12:01-0400 Heart rate 90 /min Oyl Older [employer]ODUCTION MACHINE OPERATOR.SUPERVISOR [employer] Work Phone: [facility] 05-08-2023 12:01-0400 Respiratory rate 20 /min Oly Older [employer]ODUCTION MACHINE OPERATOR.SUPERVISOR [employer] Work Phone: [facility] 05-08-2023 12:01-0400 Systolic blood pressure 134 mm[Hg] Oly Older [employer] PRODUCTION MACHINE OPERATOR.SUPERVISOR [employer] Work Phone: [facility] 01-07-2023 21:11-0500 Body temperature 98.6 [degF] Armando Wynngabriel Work Phone: [employer] 01-07-2023 21:11-0500 Heart rate 76 /min Armando Benavides DO Work Phone: [employer] 01-07-2023 21:11-0500 Respiratory rate 18 /min Armando Benavides DO Work Phone: [employer] 01-07-2023 21:11-0500 SaO2% (BldA) [Mass fraction] 94 % Armando Wynngabriel POOLE Work Phone: [employer] 01-07-2023 20:00-0500 Diastolic blood pressure 84 mm[Hg] Armando Benavides DO Work Phone: [employer] 01-07-2023 20:00-0500 Systolic blood pressure 161 mm[Hg] Armando Benavides DO Work Phone: [employer] 01-07-2023 17:39-0500 Body height 165.1 cm Armando Benavides DO Work Phone: [employer] 01-07-2023 17:39-0500 Body mass index (BMI) [Ratio] 21.63 kg/m2 Armando Benavides DO Work Phone: [employer] 01-07-2023 17:39-0500 Body weight 58.97 kg Armando Benavides DO Work Phone: [facility] 01-07-2023 12:34-0500 Body temperature 98.2 [degF] Dr. Ulises Hermosillo Work Phone: 3(958)378-917317 [place] [address] 01-07-2023 12:34-0500 Diastolic blood pressure 55 mm[Hg] Dr. Ulises Hermosillo Work Phone: 0(033)876-646617 [place] [address] 01-07-2023 12:34-0500 Heart rate 79 /min Dr. Ulises Hermosillo Work Phone: 6(574)483-49[address] [place] [address] 01-07-2023 12:34-0500 Respiratory rate 18 /min Dr. Ulises Hermosillo Work Phone: 7(225)303-729217 [place] [address] 01-07-2023 12:34-0500 SaO2% (BldA) [Mass fraction] 90 % Dr. Ulises Hermosillo Work Phone: 0(936)610-489217 [place] [address] 01-07-2023 12:34-0500 Systolic blood pressure 121 mm[Hg] Dr. Ulises Hermosillo Work Phone: 6(465)979-208817 [place] [address] 01-07-2023 09:58-0500 Inhaled oxygen flow rate 2 L/min Dr. Ulises Hermosillo Work Phone: 5(039)872-406617 [place] [address] 01-07-2023 06:00-0500 Body mass index (BMI) [Ratio] 21.9 kg/m2 Dr. Ulises Hermosillo Work Phone: 8(507)459-650417 [place] [address] 01-07-2023 06:00-0500 Body weight 59.[address] Ulises Hermosillo Work Phone: 2(070)809-776517 [place] [address] 01-03-2023 10:39-0500 Body height 165.[address] Ulises Hermosillo Work Phone: 8(182)088-339317 [place] [address] 01-02-2023 21:43-0500 Body temperature 98.4 [degF] Dr. Ulises Hermosillo Work Phone: 8(402)877-853617 [place] [address] 01-02-2023 21:43-0500 Diastolic blood pressure 87 mm[Hg] Dr. Ulises Hermosillo Work Phone: [facility] 01-02-2023 21:43-0500 Heart rate 96 /min Dr. Ulises Hermosillo Work Phone: [facility] 01-02-2023 21:43-0500 Inhaled oxygen flow rate 2 L/min Dr. Ulises Hermosillo Work Phone: [facility] 01-02-2023 21:43-0500 Respiratory rate 24 /min Dr. Ulises Hermosillo Work Phone: [facility] 01-02-2023 21:43-0500 SaO2% (BldA) [Mass fraction] 96 % Dr. Ulises Hermosillo Work Phone: [facility] 01-02-2023 21:43-0500 Systolic blood pressure 118 mm[Hg] Dr. Ulises Hermosillo Work Phone: [facility] 01-02-2023 17:54-0500 Body height 165.[address] Ulises Hermosillo Work Phone: [facility] 01-02-2023 17:54-0500 Body mass index (BMI) [Ratio] 21.8 kg/m2 Dr. Ulises Hermosillo Work Phone: [facility] 01-02-2023 17:54-0500 Body weight 59.[address] Ulises Hermosillo Work Phone: [facility] 01-01-2023 14:08-0500 Diastolic blood pressure 83 mm[Hg] Oly Older [employer] MACHINE OPERATOR.SUPERVISOR [employer] Work Phone: [facility] 01-01-2023 14:08-0500 Heart rate 85 /min Oly Older [employer]ODUCTION MACHINE OPERATOR.SUPERVISOR [employer] Work Phone: [facility] 01-01-2023 14:08-0500 Systolic blood pressure 170 mm[Hg] Oly Older [employer] MACHINE OPERATOR.SUPERVISOR [employer] Work Phone: [facility] 01-01-2023 13:09-0500 Body weight 58.06 kg Oly Older [employer] PRODUCTION MACHINE OPERATOR.SUPERVISOR [employer] Work Phone: [facility] 01-01-2023 13:09-0500 Respiratory rate 22 /min Oly Older [employer] PRODUCTION MACHINE OPERATOR.SUPERVISOR [employer] Work Phone: [facility] 01-01-2023 13:09-0500 SaO2% (BldA) [Mass fraction] 97 % Oly Older [employer] PRODUCTION MACHINE OPERATOR.SUPERVISOR [employer] Work Phone: [facility] 12-23-2022 16:29-0500 Diastolic Blood Pressure Non-Invasive [address] JOSE ROBERTO COMBS MD [facility] 12-23-2022 16:29-0500 Heart rate 84 /min DR JOSE ROBERTO COMBS MD [facility] 12-23-2022 16:29-0500 Respiratory rate 16 /min DR JOSE ROBERTO COMBS MD [facility] 12-23-2022 16:29-0500 Systolic Blood Pressure Non-Invasive [address] JOSE ROBERTO COMBS MD [facility] 12-23-2022 14:43-0500 Diastolic Blood Pressure Non-Invasive [address] JOSE ROBERTO COMBS MD [facility] 12-23-2022 14:43-0500 Heart rate 82 /min DR JOSE ROBERTO COMBS MD [facility] 12-23-2022 14:43-0500 Respiratory rate 18 /min DR JOSE ROBERTO COMBS MD [facility] 12-23-2022 14:43-0500 Systolic Blood Pressure Non-Invasive [address] JOSE ROBERTO COMBS MD [facility] 12-23-2022 13:50-0500 Body temperature 96.98 [degF] DR JOSE ROBERTO COMBS MD [facility] 12-23-2022 13:50-0500 Diastolic Blood Pressure Non-Invasive [address] JOSE ROBERTO COMBS MD [facility] 12-23-2022 13:50-0500 Heart rate 89 /min DR JOSE ROBERTO COMBS MD [facility] 12-23-2022 13:50-0500 Respiratory rate 18 /min DR JOSE ROBERTO COMBS MD [facility] 12-23-2022 13:50-0500 Systolic Blood Pressure Non-Invasive [address] JOSE ROBERTO COMBS MD [facility] 11-26-2022 12:48-0500 Body weight 57.61 kg Isauro Asher MD Work Phone: [facility] 11-26-2022 12:48-0500 Diastolic blood pressure 84 mm[Hg] Isauro Asher MD Work Phone: [facility] 11-26-2022 12:48-0500 Heart rate 98 /min Isauro Asher MD Work Phone: [facility] 11-26-2022 12:48-0500 Respiratory rate 20 /min Isauro Asher MD Work Phone: [facility] 11-26-2022 12:48-0500 SaO2% (BldA) [Mass fraction] 99 % Isauro Asher MD Work Phone: [facility] 11-26-2022 12:48-0500 Systolic blood pressure 120 mm[Hg] Isauro Asher MD Work Phone: [facility] 10-26-2022 19:30-0500 Diastolic Blood Pressure Non-Invasive 93 [address] [facility] 10-26-2022 19:30-0500 Heart rate 97 /min JEOVANY TAYLOR MD [facility] 10-26-2022 19:30-0500 Respiratory rate 20 /min JEOVANY TAYLOR MD [facility] 10-26-2022 19:30-0500 Systolic Blood Pressure Non-Invasive 167 [address] [facility] 10-26-2022 19:00-0500 Diastolic Blood Pressure Non-Invasive 92 [address] [facility] 10-26-2022 19:00-0500 Heart rate 93 /min JEOVANY TAYLOR MD [facility] 10-26-2022 19:00-0500 Respiratory rate 18 /min JEOVANY TAYLOR MD [facility] 10-26-2022 18:37-0500 Heart rate 94 /min JEOVANY TAYLOR MD [facility] 10-26-2022 18:37-0500 Respiratory rate 22 /min JEOVANY TAYLOR MD [facility] 10-26-2022 18:31-0500 Diastolic Blood Pressure Non-Invasive 82 [address] [facility] 10-26-2022 18:31-0500 Systolic Blood Pressure Non-Invasive 153 [address] [facility] 10-26-2022 16:25-0500 Body temperature 96.8 [degF] JEOVANY TAYLOR MD [facility] 10-02-2022 10:02-0500 Body height 162.1 cm Doron Self DO Work Phone: [facility] 10-02-2022 10:02-0500 Body weight 58.97 kg Doron Self DO Work Phone: [facility] 10-02-2022 10:02-0500 Diastolic blood pressure 87 mm[Hg] Doron Self DO Work Phone: [facility] 10-02-2022 10:02-0500 Heart rate 86 /min Doron Self DO Work Phone: [facility] 10-02-2022 10:02-0500 SaO2% (BldA) [Mass fraction] 96 % Doron Self DO Work Phone: [facility] 10-02-2022 10:02-0500 Systolic blood pressure 155 mm[Hg] Doron Self DO Work Phone: [facility] 09-05-2022 16:28-0400 Body weight 59.88 kg Ulises Hermosillo MD Work Phone: [facility] 09-05-2022 16:28-0400 Diastolic blood pressure 82 mm[Hg] Ulises Hermosillo MD Work Phone: [facility] 09-05-2022 16:28-0400 Heart rate 95 /min Ulises Hermosillo MD Work Phone: [facility] 09-05-2022 16:28-0400 SaO2% (BldA) [Mass fraction] 98 % Ulises Hermosillo MD Work Phone: [facility] 09-05-2022 16:28-0400 Systolic blood pressure 132 mm[Hg] Ulises Hermosillo MD Work Phone: [facility] 08-31-2022 13:22-0400 Body weight 58.51 kg Oly Older [employer] MACHINE OPERATOR.SUPERVISOR [employer] Work Phone: [facility] 08-31-2022 13:22-0400 Diastolic blood pressure 82 mm[Hg] Oly Older [employer] PRODUCTION MACHINE OPERATOR.SUPERVISOR [employer] Work Phone: [facility] 08-31-2022 13:22-0400 Heart rate 86 /min Oly Older [employer] PRODUCTION MACHINE OPERATOR.SUPERVISOR [employer] Work Phone: [facility] 08-31-2022 13:22-0400 Respiratory rate 18 /min Oly Older [employer] PRODUCTION MACHINE OPERATOR.SUPERVISOR [employer] Work Phone: [facility] 08-31-2022 13:22-0400 Systolic blood pressure 125 mm[Hg] Oly Older [employer] PRODUCTION MACHINE OPERATOR.SUPERVISOR [employer] Work Phone: [facility] 07-31-2022 14:17-0400 Body weight 60.33 kg Nicole Kenny APRN.SUPERVISOR [employer] Work Phone: [facility] 07-31-2022 14:17-0400 Diastolic blood pressure 82 mm[Hg] Nicole eKnny APRN.SUPERVISOR [employer] Work Phone: [facility] 07-31-2022 14:17-0400 Heart rate 89 /min Nicole Kenny APRN.SUPERVISOR [employer] Work Phone: [facility] 07-31-2022 14:17-0400 SaO2% (BldA) [Mass fraction] 98 % Nicole Kenny APRN.SUPERVISOR [employer] Work Phone: [facility] 07-31-2022 14:17-0400 Systolic blood pressure 148 mm[Hg] Nicole Kenny APRN.SUPERVISOR [employer] Work Phone: [facility] 06-06-2022 10:11-0400 Body height 162.1 cm Margaret Kasper MD Work Phone: [facility] 06-06-2022 10:11-0400 Body weight 58 kg Margaret Kasper MD Work Phone: [facility] 06-06-2022 10:11-0400 Diastolic blood pressure 84 mm[Hg] Margaret Kasper MD Work Phone: [facility] 06-06-2022 10:11-0400 Heart rate 77 /min Margaret Kasper MD Work Phone: [facility] 06-06-2022 10:11-0400 SaO2% (BldA) [Mass fraction] 96 % Margaret Kasper MD Work Phone: [facility] 06-06-2022 10:11-0400 Systolic blood pressure 173 mm[Hg] Margaret Kasper MD Work Phone: [facility] 05-11-2022 13:40-0400 Body weight 58.06 kg Ulises Hermosillo MD Work Phone: [facility] 05-11-2022 13:40-0400 Diastolic blood pressure 78 mm[Hg] Ulises Hermosillo MD Work Phone: [facility] 05-11-2022 13:40-0400 Heart rate 99 /min Ulises Hermosillo MD Work Phone: [facility] 05-11-2022 13:40-0400 Respiratory rate 24 /min Ulises Hermosillo MD Work Phone: [facility] 05-11-2022 13:40-0400 SaO2% (BldA) [Mass fraction] 95 % Ulises Hermosillo MD Work Phone: [facility] 05-11-2022 13:40-0400 Systolic blood pressure 118 mm[Hg] Ulises Hermosillo MD Work Phone: [facility] 05-05-2022 10:56-0400 Respiratory rate 16 /min DR BETINA GODDARD MD [facility] 05-05-2022 10:48-0400 Body temperature 97.7 [degF] DR BETINA GODDARD MD [facility] 05-05-2022 10:48-0400 Diastolic blood pressure 75 mm[Hg] DR BETINA GODDARD MD [facility] 05-05-2022 10:48-0400 Heart rate 76 /min DR BETINA GODDARD MD [facility] 05-05-2022 10:48-0400 Reason For Taking VItal Signs DR BETINA GODDARD MD [facility] 05-05-2022 10:48-0400 Respiratory rate 16 /min DR BETINA GODDARD MD [facility] 05-05-2022 10:48-0400 Systolic blood pressure 116 mm[Hg] DR BETINA GODDARD MD [facility] 05-05-2022 07:33-0400 Body temperature 97.88 [degF] DR BETINA GODDARD MD [address] [place] [address] 05-05-2022 07:33-0400 Diastolic blood pressure 71 mm[Hg] DR BETINA GODDARD MD [address] [place] [address] 05-05-2022 07:33-0400 Heart rate 71 /min DR BETINA GODDARD MD [address] [place] [address] 05-05-2022 07:33-0400 Mean blood pressure 88 mm[Hg] [facility] [facility] 05-05-2022 07:33-0400 Reason For Taking VItal Signs DR BETINA GODDARD MD [address] [place] [address] 05-05-2022 07:33-0400 Respiratory rate 16 /min DR BETINA GODDARD MD [address] [place] [address] 05-05-2022 07:33-0400 Systolic blood pressure 122 mm[Hg] DR BETINA GODDARD MD [address] [place] [address] 05-05-2022 06:43-0400 Heart rate 77 /min DR BETINA GODDARD MD [address] [place] [address] 05-04-2022 23:22-0400 Diastolic blood pressure 64 mm[Hg] DR BETINA GODDARD MD [facility] 05-04-2022 23:22-0400 Systolic blood pressure 124 mm[Hg] DR BETINA GODDARD MD [facility] 05-04-2022 20:59-0400 Body temperature 98.42 [degF] DR BETINA GODDARD MD [facility] 05-04-2022 20:59-0400 Heart rate 73 /min DR BETINA GODDARD MD [facility] 05-04-2022 14:47-0400 Mean blood pressure 92 mm[Hg] DR BETINA GODDARD MD [facility] 05-04-2022 14:47-0400 Reason For Taking VItal Signs DR BETINA GODDARD MD [facility] 05-04-2022 01:04-0400 Heart rate 81 /min DR BETINA GODDARD MD [facility] 05-04-2022 01:04-0400 Mean blood pressure 85 mm[Hg] DR BETNIA GODDARD MD [facility] 05-03-2022 19:06-0400 Heart rate 94 /min DR BETINA GODDARD MD [facility] 05-03-2022 14:51-0400 Heart rate 82 /min DR BETINA GODDARD MD [facility] 05-02-2022 09:53-0400 Body height 165.[address] BETINA GODDARD MD [facility] 05-02-2022 09:53-0400 Body weight [address] BETINA GODDARD MD [facility] 05-02-2022 09:53-0400 Body weight 22.01 kg/m2 DR BETINA GODDARD MD [facility] 05-02-2022 06:28-0400 Diastolic blood pressure 86 mm[Hg] EMMANUEL FROMMELT DO [facility] 05-02-2022 06:28-0400 Heart rate 92 /min EMMANUEL FROMMELT DO [facility] 05-02-2022 06:28-0400 Respiratory rate 20 /min EMMANUEL FROMMELT DO [facility] 05-02-2022 06:28-0400 Systolic blood pressure 131 mm[Hg] EMMANUEL FROMMELT DO [facility] 05-02-2022 04:25-0400 Diastolic blood pressure 82 mm[Hg] EMMANUEL FROMMELT DO [facility] 05-02-2022 04:25-0400 Heart rate 95 /min EMMANUEL FROMMELT DO [facility] 05-02-2022 04:25-0400 Mean blood pressure 98 mm[Hg] EMMANUEL FROMMELT DO [facility] 05-02-2022 04:25-0400 Respiratory rate 22 /min EMMANUEL FROMMELT DO [facility] 05-02-2022 04:25-0400 Systolic blood pressure 129 mm[Hg] EMMANUEL FROMMELT DO [facility] 05-02-2022 03:42-0400 Diastolic blood pressure 84 mm[Hg] EMMANUEL FROMMELT DO [facility] 05-02-2022 03:42-0400 Heart rate 98 /min EMMANUEL THOMPSONT DO [facility] 05-02-2022 03:42-0400 Mean blood pressure 99 mm[Hg] EMMANUEL THOMPSONT DO [facility] 05-02-2022 03:42-0400 Respiratory rate 24 /min EMMANUEL THOMPSONT DO [facility] 05-02-2022 03:42-0400 Systolic blood pressure 130 mm[Hg] EMMANUEL FROMMELT DO [facility] 05-02-2022 03:12-0400 Body temperature 98.24 [degF] EMMANUEL FROMMELT DO [facility] 05-02-2022 03:12-0400 Heart rate 130 /min EMMANUEL FROMMELT DO [facility] 05-02-2022 03:11-0400 Heart rate 124 /min EMMANUEL KILLIAN DO [facility] 04-30-2022 15:40-0400 Body weight 57.61 kg Tracy Ramires APRN.SUPERVISOR [employer] Work Phone: [facility] 04-30-2022 15:40-0400 Diastolic blood pressure 75 mm[Hg] Tracy Ramires PLASTICS PRODUCTION MACHINE OPERATOR.SUPERVISOR [employer]ARD Work Phone: [facility] 04-30-2022 15:40-0400 Heart rate 83 /min Tracy Ramires APRN.SUPERVISOR [employer] Work Phone: [facility] 04-30-2022 15:40-0400 Systolic blood pressure 138 mm[Hg] Tracy Ramires APRN.SUPERVISOR M[employer] YARD Work Phone: [facility] 03-13-2022 13:59-0400 Body height 165.1 cm Nicole Kenny APRN.SUPERVISOR M[employer]ARD Work Phone: [facility] 03-13-2022 13:59-0400 Body weight 60.92 kg Nicole Kenny APRN.SUPERVISOR M[employer] Work Phone: [facility] 03-13-2022 13:59-0400 Diastolic blood pressure 76 mm[Hg] Nicole Kenny APRN.SUPERVISOR M[employer] YARD Work Phone: [facility] 03-13-2022 13:59-0400 Heart rate 81 /min Nicole Kenny APRN.SUPERVISOR M[employer] YARD Work Phone: [facility] 03-13-2022 13:59-0400 SaO2% (BldA) [Mass fraction] 96 % Nicole Kenny APRN.SUPERVISOR M[employer] YARD Work Phone: [facility] 03-13-2022 13:59-0400 Systolic blood pressure 157 mm[Hg] Nicole Kenny APRN.SUPERVISOR M[employer] YARD Work Phone: [facility] Encounters Encounter Date Encounter Type Care Provider Facility Start: 07-13-2025 ambulatory Ulises Cervantes ty:[facility] Start: 07-09-2025 End: 07-12-2025 Emergency department patient visit ARLEN STRONG PLASTICS PRODUCTION MACHINE OPERATOR-SUPERVISOR [employer]ARD Facility:[facility] Start: 07-09-2025 End: 07-12-2025 Observation ARLEN STRONG PLASTICS PRODUCTION MACHINE OPERATOR-SUPERVISOR MOLD YARD [facility] Start: 06-12-2025 End: 06-15-2025 Evaluation and management of inpatient DR JAE LUCIANO MD [facility] Start: 06-12-2025 End: 06-12-2025 Emergency department patient visit BRIAN AMOS DO [facility] Start: 05-16-2025 End: 05-24-2025 Evaluation and management of inpatient GWYN FERRARO PLASTICS PRODUCTION MACHINE OPERATOR-[facility] Start: 03-05-2025 ambulatory EMMA DIBEN Facility:[facility] Start: 03-04-2025 End: 03-06-2025 Emergency department patient visit DR LEAH KHAN DO Facility:[facility] Start: 03-04-2025 End: 03-06-2025 Observation TIFFANY HANSEN DO [facility] Start: 02-19-2025 ambulatory EMMA M JENNIEMARY JO DO Facil ity:A Start: 02-19-2025 End: 02-20-2025 Evaluation and management of inpatient EMMA DITCHEY Facility:[facility] Start: 02-03-2025 End: 02-03-2025 ambulatory EMMA DITCHEY Facility:[facility] Start: 12-25-2024 End: 12-25-2024 ambulatory EMMA DITCHEY Facility:[facility] Start: 12-25-2024 End: 12-25-2024 Patient encounter procedure XAVIER GONZALEZ MD [facility] Start: 12-14-2024 End: 12-14-[address] MILO ESTEBAN MD Facility: Start: 12-14-2024 End: 12-14-[address] MILO ESTEBAN MD [facility] Start: 12-11-2024 End: 12-11-2024 ambulatory EMMA QUEEN Facility:[facility] Start: 12-11-2024 End: 12-11-2024 Patient encounter procedure XAVIER GONZALEZ MD [facility] Start: 10-23-2024 End: 10-27-[address] ULISES HERMOSILLO MD Facility:[facility] Start: 10-23-2024 End: 10-27-2024 Outreach Lab EMMA QUEEN DO [facility] Start: 01-24-2024 Refill No Pcp PLASTICS PRODUCTION MACHINE OPERATOR [facility] [place] Comment on above: Refill Request Start: 12-23-2023 Refill Ulises ram MD Work Phone: [facility] [place] Comment on above: Refill Request Start: 10-18-2023 Refill Ulises ram MD Work Phone: [facility] [place] Comment on above: Refill Request Start: 09-25-2023 Telephone encounter Ulises cheng MD Work Phone: [facility] [place] Comment on above: Medication Problem Start: 06-13-2023 Telephone encounter [facility] Provider Renzo silver Management Comment on above: Future Appointment Start: 06-10-2023 Refill Ulises ram MD Work Phone: [facility] [place] Comment on above: Refill Request Medication clarifica tion Start: 06-06-2023 Refill Tracy E Ar y PLASTICS PRODUCTION MACHINE OPERATOR.SUPERVISOR [employer]ARD Work Phone: Cardiology Comment on above: Refill Request Start: 05-28-2023 Orders Only Fifi Price er PLASTICS PRODUCTION MACHINE OPERATOR.SUPERVISOR M[employer] YARD Work Phone: Pulmonary Medicine Comment on above: Encounter for screen ing for lung cancer (Primary Dx); Tobacco use current Start: 05-10-2023 Telephone encounter Ulises cheng MD Work Phone: [facility] [place] Comment on above: Results Start: 05-09-2023 End: 05-09-2023 ambulatory MELY GRIFFIN Facility:[facility] Start: 05-09-2023 End: 05-09-2023 Patient encounter procedure Mely Griffin PA-C Work Phone: Pulmonary Medicine Comment on above: Stage 3 severe COPD by GOLD classification (HCC) (Primary Dx); Cigarette smoker; Lung nodules Start: 05-08-2023 End: 05-09-2023 ambulatory OLY OLDER Facility:[facility] Start: 05-08-2023 End: 05-08-2023 Subsequent hospital visit by physician Xr [facility] Work Phone: Radiology Comment on above: Chronic midline low back pain with sciatica, sciatica laterality unspecified [M54.40, G89.29] Start: 05-08-2023 End: 05-08-2023 Patient encounter procedure Oly Smith PLASTICS PRODUCTION MACHINE OPERATOR.SUPERVISOR M[employer] YARD Work Phone: [facility] [place] Comment on above: Chronic midline low back pain with sciatica, sciatica laterality unspecified (Primary Dx); Lesion of left ear; Essential hypertension; Mixed hyperlipidemia; Chronic bronchitis, unspecified chronic bronchitis type (HCC); Recurrent major depression in partial remission (HCC); Coronary artery disease involving round valley coronary artery of round valley heart without angina pectoris Start: 04-16-2023 ambulatory Melissa Vital MA [facility] Comment on above: Population Health Na vigation Outreach (Amandaator Kailash amaya [facility] gap outreach) Start: 04-02-2023 End: 04-02-2023 ambulatory DORON SELF Facility:[facility] Start: 02-26-2023 Refill Isauro Asher MD Work Phone: Pulmonary Medicine Comment on above: Refill Request Start: 01-07-2023 End: 01-07-2023 Emergency department patient visit ARMANDO BENAVIDES [facility] Start: 01-07-2023 End: 01-07-2023 Emergency department patient visit Armando Agarwal Kennedy POOLE Work Phone: [facility] Emergency Department Comment on above: Dehydration (Primary Dx) Start: 01-06-2023 Non-patient / Non-visit Dr. Amie Hermosillo Work Phone: [facility] Phys[facility] Start: 01-05-2023 Non-patient / Non-visit Dr. Amie Hermosillo Work Phone: [facility] Start: 01-04-2023 Non-patient / Non-visit Dr. Amie Hermosillo Work Phone: [facility] Start: 01-04-2023 Non-patient / Non-visit Dr. Amie Hermosillo Work Phone: [facility] Start: 01-03-2023 Non-patient / Non-visit Dr. Amie Hermosillo Work Phone: [facility] Start: 01-02-2023 Non-patient / Non-visit Dr. Amie Hermosillo Work Phone: [facility] Start: 01-02-2023 End: 01-07-2023 Evaluation and management of inpatient Dr. Ulises Hermosillo Work Phone: [facility] Start: 01-01-2023 End: 01-02-2023 [facility] Facility:[facility] Start: 01-01-2023 End: 01-01-2023 Patient encounter procedure Oly Older PLASTICS PRODUCTION MACHINE OPERATOR.SUPERVISOR MOLD YARD Work Phone: [facility] [place] Comment on above: Alcohol withdrawal s yndrome without complication (HCC) (Primary Dx) Start: 01-01-2023 Telephone encounter Diana delarosa AMPLIFIER MECHANIC Work Phone: Adult Psychology Comment on above: Behavioral Health So cial Work Start: 01-01-2023 End: 01-01-2023 Subsequent hospital visit by physician Xr [facility] Work Phone: Radiology Comment on above: Hemoptysis [R04.2] Start: 12-23-2022 End: 12-23-2022 Emergency department patient visit JOSE ROBERTO COMBS MD Facility:[facility] Start: 12-23-2022 End: 12-23-2022 Emergency department patient visit DR JOSE ROBERTO COMBS MD [facility] Start: 12-14-2022 Refill Ulises ram MD Work Phone: [facility] Comment on above: Refill Request Start: 11-26-2022 End: 11-26-2022 ambulatory ISAURO ASHER Facility:[facility] Start: 11-26-2022 End: 11-26-2022 Patient encounter procedure Isauro Asher MD Work Phone: Pulmonary Medicine Comment on above: Hemoptysis (Primary Dx); Stage 3 severe COPD by GOLD classification ([facility]); Cigarette smoker Start: 10-26-2022 End: 10-26-2022 Emergency department [facility] Start: 10-26-2022 End: 10-26-2022 Emergency department patient visit JEOVANY TAYLOR MD [facility] Start: 10-02-2022 End: 10-02-2022 Patient encounter procedure Doron Self DO Work Phone: Vascular Surgery Comment on above: PAD (peripheral daxa ry disease) ([facility]) Start: 09-21-2022 Telephone encounter Doron Self DO Work Phone: Vasculary Surgery Comment on above: Patient Question Start: 09-19-2022 Telephone encounter Doron Self DO Work Phone: Vascular Surgery Comment on above: Orders Start: 09-05-2022 End: 09-05-2022 Patient encounter procedure Ulises Hermosillo MD Work Phone: [facility] [place] Comment on above: Thrush (oral) (Prima ry Dx); Prediabetes; Essential hypertension Start: 09-05-2022 ambulatory Ulises ram MD Work Phone: [facility] [place] Comment on above: Mouth/Lip Problem Start: 08-31-2022 End: 08-31-2022 Patient encounter procedure Olysky Smith PLASTICS PRODUCTION MACHINE OPERATOR.SUPERVISOR MOLD YARD Work Phone: [facility] [place] Comment on above: Situational anxiety (Primary Dx); Allergic conjunctivitis of both eyes; Recurrent major depression in partial remission (HCC); Essential hypertension; Coronary artery disease involving round valley coronary artery of round valley heart without angina pectoris; Chronic bronchitis, unspecified chronic bronchitis type (HCC); Encounter for immunization; Mixed hyperlipidemia; Lung nodule; Screening for osteoporosis; Asymptomatic menopause Start: 08-13-2022 Telephone encounter Ulises cheng MD Work Phone: [facility] [place] Comment on above: Patient Update Start: 08-02-2022 Telephone encounter Doron Self DO Work Phone: Vascular Surgery Comment on above: Appointment Start: 07-31-2022 End: 07-31-2022 Patient encounter procedure Nicole Kimimarcelle Kenny APRN.SUPERVISOR MOLD YARD Work Phone: Pulmonary Medicine Comment on above: Lung nodules (Primar y Dx); Current smoker Start: 07-26-2022 ambulatory UNKNOWN PROVIDER Facili ty:[facility] Start: 07-20-2022 Refill Ulises ram MD Work Phone: [facility] [place] Comment on above: Refill Request Start: 07-13-2022 Telephone encounter Doron Self DO Work Phone: Vascular Surgery Comment on above: Appointment Start: 07-09-2022 End: 07-09-2022 ambulatory Respiratory Therapist [facility] Work Phone: Pulmonary Medicine Comment on above: Arrived Start: 07-09-2022 End: 07-09-2022 Patient encounter procedure Respiratory Therapist [facility] Work Phone: [facility] Start: 07-06-2022 Telephone encounter Margaret Kasper MD Work Phone: Pulmonary Medicine Comment on above: Orders Start: 06-14-2022 Refill Ulises ram MD Work Phone: [facility] [place] Comment on above: Refill Request Start: 06-06-2022 End: 06-06-2022 ambulatory Pulm Work Phone: Pulmonary Medicine Comment on above: Spirometry Start: 06-06-2022 End: 06-06-2022 Patient encounter procedure Pulm [facility] Work Phone: [facility] Comment on above: Asthma-COPD overlap syndrome (HCC) (Primary Dx); Wheezing; Smoking Start: 06-04-2022 Telephone encounter Ulises cheng MD Work Phone: [facility] [place] Comment on above: Aerochamber spacer Start: 05-31-2022 Telephone encounter Ulises cheng MD Work Phone: [facility] [place] Comment on above: Orders Start: 05-30-2022 Orders Only Nicole lang PLASTICS PRODUCTION MACHINE OPERATOR.SUPERVISOR MOLD YARD Work Phone: Pulmonary Medicine Comment on above: Tobacco use disorder (Primary Dx) Smoker (Primary Dx); Encounter for screening for malignant neoplasm of lung Start: 05-28-2022 Refill Tracy kirkland PLASTICS PRODUCTION MACHINE OPERATOR.SUPERVISOR MOLD YARD Work Phone: Cardiology Comment on above: Refill Request Start: 05-25-2022 Refill Ulises ram MD Work Phone: [facility] [place] Comment on above: Refill Request Start: 05-23-2022 Telephone encounter Tracy Ramires PLASTICS PRODUCTION MACHINE OPERATOR.SUPERVISOR MOLD YARD Work Phone: Cardiology Comment on above: Results Start: 05-21-2022 End: 05-21-2022 Patient encounter procedure Ech[facility] Work Phone: Cardiology Comment on above: DIAZ (dyspnea on exer tion) Start: 05-11-2022 End: 05-11-2022 Patient encounter procedure Ulises Hermosillo MD Work Phone: [facility] [place] Comment on above: Chronic bronchitis, unspecified chronic [...] management of inpatient DR BETINA GODDARD MD [facility] Start: 05-02-2022 End: 05-02-2022 Emergency department patient visit [facility] Facility:B Start: 05-02-2022 End: 05-02-2022 Emergency department patient visit [facility] DO [facility] Start: 04-30-2022 End: 04-30-2022 Patient encounter procedure Tracy Ramires PLASTICS PRODUCTION MACHINE OPERATOR.SUPERVISOR M[employer] YARD Work Phone: Cardiology Comment on above: DIAZ (dyspnea on exer tion) (Primary Dx); Essential hypertension; Coronary artery disease involving round valley coronary artery of round valley heart without angina pectoris; Mixed hyperlipidemia; Smoker; Stenosis of carotid artery, unspecified laterality Start: 04-03-2022 Refill Ulises ram MD Work Phone: [facility] [place] Comment on above: Refill Request Start: 03-16-2022 Refill Eri Fu APRN.SUPERVISOR MOLD YARD Work Phone: Pulmonary Medicine Comment on above: Refill Request Start: 03-13-2022 End: 03-13-2022 Patient encounter procedure Nicole Kenny PLASTICS PRODUCTION MACHINE OPERATOR.SUPERVISOR M[employer] YARD Work Phone: Pulmonary Medicine Comment on above: Dyspnea on exertion (Primary Dx); Smoker; Encounter for screening for malignant neoplasm of lung Start: 03-01-2022 Refill Oly Smith PLASTICS PRODUCTION MACHINE OPERATOR .SUPERVISOR MOLD YARD Work Phone: [facility] [place] Comment on above: Refill Request Start: 10-10-2021 [facility]: [facility]-14[facility]2021 [facility] Start: 08-14-2021 [facility] Start: 01-27-2021 End: 01-27-2021 Subsequent hospital visit by physician Xr [facility] [place] Work Phone: Radiology Comment on above: Chest pain, unspecif ied type [R07.9] Pain [R52] Start: 09-28-2019 End: 10-06-2019 Patient encounter status [facility] [place] Work Phone: [facility] Start: 04-29-2018 Emergency department patient visit UNKNOWN PROVIDER [facility] Procedures Date Procedure Procedure Detail Performing Clinician Start: 07-09-2025 History of percutane ous transluminal coronary angioplasty ARLEN STRONG PLASTICS PRODUCTION MACHINE OPERATOR-SUPERVISOR MOLD YARD Start: 06-12-2025 History of percutane ous transluminal coronary angioplasty DR JAE LUCIANO MD Start: 05-17-2025 History of percutane ous transluminal coronary angioplasty GWYN FERRARO PLASTICS PRODUCTION MACHINE OPERATOR-SUPERVISOR M[employer] YARD Start: 03-04-2025 History of percutane ous transluminal coronary angioplasty TIFFANY HANSEN DO Start: 05-08-2023 Radex spine lumbosac ral 2/3 views Oly Durbin PLASTICS PRODUCTION MACHINE OPERATOR.SUPERVISOR MOLD YARD Work Phone: Start: 05-08-2023 Lipid 1996 panel [...] QUADRIVALENT HIGH DOSE AGE 65+ Oly Older PLASTICS PRODUCTION MACHINE OPERATOR.SUPERVISOR MOLD YARD Work Phone: Start: 07-09-2022 Noninvasive ear/puls e oximetry multiple deter Margaret Kasper MD Work Phone: Start: 06-06-2022 Brncdilat rspse spmt ry pre&post-brncdilat admn Nicole Kenny PLASTICS PRODUCTION MACHINE OPERATOR.SUPERVISOR MOLD YARD Work Phone: Start: 05-21-2022 Echo tthrc r-t 2d w/ wom-mode compl spec&colr d Tracy E Sima PLASTICS PRODUCTION MACHINE OPERATOR.SUPERVISOR MOLD YARD Work Phone: Start: 08-25-2021 Cardiac catheterization GWYN FERRARO PLASTICS PRODUCTION MACHINE OPERATOR-SUPERVISOR [employer] Comment on above: with stents Start: 01-27-2021 Radiologic exam chest 2 views Ulises Hermosillo MD Work Phone: Start: 01-27-2021 Radex hips bilateral with pelvis minimum 5 views Babatunde Lomeli MD Work Phone: Start: 04-03-2017 Colonoscopy Oly Older PLASTICS PRODUCTION MACHINE OPERATOR.SUPERVISOR MOLD YARD Work Phone: Cardiac catheterization TIFFANY HANSEN Comment on above: with stents Cervical (qualifier value) C [facility] Comment on above: replacement of 2 dis cs Cholecystectomy [facility]EL [facility] Cholecystocecostomy EMMANUEL [facility] Ear structure (body structure) DR MILO ESTEBAN MD Comment on above: left facial nerves r epair Hysterectomy EMM[facility]UEL [facility] Investigation of tra nsfusion reaction Dr. Ulises Hermosillo Work Phone: None (qualifier value) CHARL ES [facility] Respiratory microbial culture Dr. Ulises Hermosillo Work Phone: Tonsillectomy EMM[facility]UEL [facility] Upper limb structure (body structure) EMMANUEL [facility] Comment on above: left Plan of Treatment Date Care Activity Detail Author Start: 05-08-2028 Lipid 1996 panel - Serum or Plasma Lipid Screening [facility] Start: 05-08-2028 Lipid panel Lipid Screening [facility] Start: 05-08-2028 LIPID SCREEN LIPID SCREEN [facility] Start: 04-03-2027 Colonoscopy COLONOSCOPY [facility] Start: 04-03-2027 COLORECTAL CANCER SCREENING COLORECTAL CANCER SCREENING [facility] Start: 04-03-2027 Screening for malignant neoplasm of colon [facility] Start: 09-27-2026 LIPID SCREEN LIPID SCREEN [facility] Start: 05-08-2026 DIABETES SCREEN DIABETES SCREEN [facility] Start: 05-08-2026 Diabetes Screening Diabetes Screening [facility] Start: 10-19-2024 DIABETES SCREEN DIABETES SCREEN [facility] Start: 07-12-2024 Covid-19 Vaccine () Covid-19 Vaccine () [facility] Start: 07-12-2024 Covid-19 Vaccine ( season) Covid-19 Vaccine ( season) [facility] Start: 07-12-2024 Influenza [facility] Start: 05-08-2024 ANNUAL PCP TEAM CHRONIC DISEASE VISIT ANNUAL PCP TEAM CHRONIC DISEASE VISIT [facility] Start: 05-08-2024 Hepatitis B surface antibody level LDL CHOLESTEROL [facility] Start: 01-01-2024 ANNUAL PCP TEAM CHRONIC DISEASE VISIT ANNUAL PCP TEAM CHRONIC DISEASE VISIT [facility] Start: 11-11-2023 Advance Directive Discussion Advance Directive Discussion [facility] Start: 09-05-2023 ANNUAL PCP TEAM CHRONIC DISEASE VISIT ANNUAL PCP TEAM CHRONIC DISEASE VISIT [facility] Start: 08-31-2023 ANNUAL PCP TEAM CHRONIC DISEASE VISIT ANNUAL PCP TEAM CHRONIC DISEASE VISIT [facility] Start: 08-31-2023 COVID-19 VACCINE (2 - Pfizer series) COVID-19 VACCINE (2 - Pfizer series) [facility] Comment on above: Postponed from 12/12/2021 (Declined at t his time) Postponed from 01/16 (Declined at this time) Start: 08-31-2023 SHINGRIX VACCINE (1 of 2) SHINGRIX VACCINE (1 of 2) [facility] Comment on above: Postponed from 2005 (Declined at t his time) Start: 08-31-2023 Urine microalbumin profile DTAP,TDAP,TD (1 - Tdap) [facility] Comment on above: Postponed from 1974 (Declined at t his time) Start: 07-26-2023 Influenza vaccination LUNG CANCER SCREENING [facility] Start: 07-26-2023 Screening for malignant neoplasm of lung Lung Cancer Screening [facility] Start: 07-12-2023 Covid-19 Vaccine ( season) Covid-19 Vaccine () [facility] Start: 07-12-2023 Influenza vaccination [facility] Start: 05-11-2023 ANNUAL PCP TEAM CHRONIC DISEASE VISIT ANNUAL PCP TEAM CHRONIC DISEASE VISIT [facility] Start: 05-11-2023 BP CONTROLLED (<130/80) BP CONTROLLED (<130/80) [facility] Start: 05-08-2023 End: 07-08-2023 Comprehensive metabolic 2000 panel - Serum or Plasma [facility] Work Phone: Comment on above: Expected: 05/08/2023, Expires: 3 Start: 05-08-2023 End: 07-08-2023 LIPID PANEL, NONFASTING [facility] Work Phone: Comment on above: Expected: 05/08/2023, Expires: 3 Start: 04-21-2023 PNEUMOVAX AGE 65 AND OVER WITH 5YR LOOKBACK (#1) PNEUMOVAX AGE 65 AND OVER WITH 5YR LOOKBACK (#1) [facility] Start: 01-07-2023 Patient discharge [facility] Start: 01-07-2023 [facility] Start: 01-03-2023 Care regimes management [facility] Start: 01-03-2023 Notification of physician [facility] Start: 01-03-2023 [facility] Start: 01-03-2023 Following clinical pathway protocol [facility] Start: 01-02-2023 Assessment of risk of venous thromboembolism [facility] Start: 01-02-2023 Incentive spirometry [facility] Start: 01-02-2023 Inhalation therapy procedure [facility] Start: 01-02-2023 Insertion of catheter into peripheral vein [facility] Start: 01-02-2023 Introduction of urinary catheter [facility] Start: 01-02-2023 Measuring intake and output [facility] Start: 01-02-2023 Notification of physician [facility] Start: 01-02-2023 Oxygen therapy [facility] Start: 01-02-2023 Providing care according to standard [facility] Start: 01-02-2023 Provision of activity privileges [facility] Start: 01-02-2023 Referral to service [facility] Start: 01-02-2023 Tobacco use cessation education [facility] Start: 01-02-2023 Vital signs measurements [facility] Start: 01-02-2023 [facility] Start: 01-02-2023 Electrocardiographic procedure [facility] Start: 01-02-2023 [facility] Start: 01-02-2023 Verification routine [facility] Start: 01-02-2023 Admission procedure [facility] Start: 01-02-2023 Patient referral to dietitian [facility] Start: 11-26-2022 End: 01-26-2023 Alpha 1 antitrypsin [Mass/volume] in Serum or Plasma [id number] BL Lab Routine Stage 3 severe COPD by GOLD classification (HCC) Expected: 11/26/2022, Expires: 01/26/2023 [facility] Work Phone: Comment on above: Expected: 11/26/2022, Expires: 3 Start: 11-26-2022 End: 01-26-2023 CBC W Auto Differential panel - Blood CBC + DIFF Lab Routine Hemoptysis Expected: 11/26/2022, Expires: 01/26/2023 [facility] Work Phone: Comment on above: Expected: 11/26/2022, Expires: 3 Start: 11-11-2022 ADVANCE DIRECTIVE DISCUSSION ADVANCE DIRECTIVE DISCUSSION [facility] Start: 10-19-2022 ANNUAL PCP TEAM CHRONIC DISEASE VISIT ANNUAL PCP TEAM CHRONIC DISEASE VISIT [facility] Start: 09-27-2022 Hepatitis B surface antibody level LDL CHOLESTEROL [facility] Start: 08-11-2022 End: 10-11-2022 CBC panel - Blood by Automated count CBC Lab Routine PAD (peripheral artery disease) (HCC) Expected: 08/11/2022, Expires: 10/11/2022 [facility] Work Phone: Comment on above: Expected: 08/11/2022, Expires: 2 Start: 08-11-2022 End: 10-11-2022 Comprehensive metabolic 2000 panel - Serum or Plasma COMP METABOLIC PANEL Lab Routine PAD (peripheral artery disease) (HCC) Expected: 08/11/2022, Expires: 10/11/2022 [facility] Work Phone: Comment on above: Expected: 08/11/2022, Expires: 2 Start: 08-11-2022 End: 10-11-2022 Lipid 1996 panel - Serum or Plasma LIPID PANEL BASIC Lab Routine PAD (peripheral artery disease) (HCC) Expected: 08/11/2022, Expires: 10/11/2022 [facility] Work Phone: Comment on above: Expected: 08/11/2022, Expires: 2 Start: 07-12-2022 Influenza vaccination [facility] Start: 12-12-2021 COVID-19 VACCINE (2 - Pfizer 3-dose series) COVID-19 VACCINE (2 - Pfizer 3-dose series) [facility] Start: 12-12-2021 COVID-19 VACCINE (2 - Pfizer series) COVID-19 VACCINE (2 - Pfizer series) [facility] Start: 11-11-2021 ADVANCE DIRECTIVE DISCUSSION ADVANCE DIRECTIVE DISCUSSION [facility] Start: 01-06-2021 BP CONTROLLED (<130/80) BP CONTROLLED (<130/80) [facility] Start: 2020 BONE DENSITY BONE DENSITY [facility] Start: 2020 Bone Density Screening Bone Density Screening [facility] Start: 2020 Screening for osteoporosis Bone Density Screening [facility] Start: 04-21-2019 PNEUMOCOCCAL: 65+ (2 - PCV) PNEUMOCOCCAL: 65+ (2 - PCV) [facility] Start: 2015 RSV Vaccine (1 - 1-dose 60+ series) RSV Vaccine (1 - 1-dose 60+ series) [facility] Start: 2015 RSV Vaccine (1 - Risk 60-74 years 1-dose series) RSV Vaccine (1 - Risk 60-74 years 1-dose series) [facility] Start: 2010 Influenza vaccination LUNG CANCER SCREENING [facility] Start: 2005 Influenza vaccination LUNG CANCER SCREENING [facility] Start: 2005 SHINGRIX VACCINE (1 of 2) SHINGRIX VACCINE (1 of 2) [facility] Start: 2000 COLOGUARD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 06/12/2025 3:52:07 PM Ordering Provider: KRYS PICKETT [facility]08-02-2025 Note* Exam Date Time Procedure Performing Provider Status 06/12/25 2:58 PM EKG [ED AOH] - CV BRIAN TRINIDAD DO; Aut h (Verified) ECG Final Report Sinus tachycardia Probable left atrial enlargement Probable left ventricular hypertrophy Nonspecific T abnormalities, lateral leads Electronic Signature: BRIAN TRINIDAD DO 06/12/2025 15:14:26 [facility]08-02-2025 Evaluation + Plan noteExtracted from: [...] Appointment Date:07/13/2025 10:00:00 AM Scheduled Provider:ELLEN SWAN Location:[facility] Appointment Type:CV OV Hospital Follow Up Appointment Date:07/30/2025 10:00:00 AM Scheduled Provider:EMMA QUEEN DO Location:[facility] Appointment Type:PC OV Future Scheduled Tests Laboratory* Basic Metabolic Panel 01/11/25 * N-Terminal proBNP 01/11/25 Radiology* MRI Cardiac Morphology & Func W+W/O Cont 02/23/25 * CT Low Dose Lung Cancer Screening (LDCT) 03/10/25 [facility] 07-14-2025 Hospital Discharge instructions Patient Education 05/24/2025 11:49:32 Heart Failure, Self Care, Eong-ov-Soii Heart Failure, Self Care Heart failure is [...] when you have heart failure Medicines Take fntv-sbp-cnhxaob and prescription medicines only as told by [...] 02/10/2020 Document Revised: 02/09/2020 Document Reviewed: 02/10/2020 TheDigitel Patient Education 2020 [employer]. 05/24/2025 11:49:25 Chronic Obstructive Pulmonary Disease Exacerbation, Tqhr-py-Oemn Chronic Obstructive Pulmonary Disease Exacerbation Chronic obstructive [...] Follow these instructions at home: Medicines Take mlfw-tnq-kvgvatr and prescription medicines only as told by [...] cannot use soap and water, use hand deskidding machine operator. During flu season, avoid areas that are [...] 10/16/2012 Document Revised: 10/10/2018 Document Reviewed: 12/02/2017 TheDigitel Patient Education [employer]. [facility] 07-14-2025 Nurse Progress note Report called to PETERSON Lauren at [facility] at this time. Digitally Signed by Krissy Russo RN on 05/24/2025 01:[address] [facility]07-14-2025 Nurse Progress note RN attempted to call report to [facility] at 1300 and [phone] but there was no answer. Transport ETA is 1330. Digitally Signed by Krissy Russo RN on 05/24/2025 01:[address] [facility]07-14-2025 Note Discharge Instructions Thank you for allowing [facility] to assist you with your healthcare needs. The following is importantdischarge information regarding your hospital visit. Your Care Team EMMA QUEEN DO Your Diagnosis Acute exacerbation of chronic heart failure Anxiety 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 Chronic respiratory failure COPD exacerbation Psychophysiologic [...] is medically optimized to transfer today to [facility] for a skilled stay. Scheduled Follow-Up Appointments Appointment Type When With Where Contact Information StatusPC OV 07/30/2025 10:00 AM EDT EMMA QUEEN DO [address] [id number] Confirmed The Following Activity and [...] Ordered -- 05/24/25 12:01:00 EDT, EMMA DEMARCO PLASTICS PRODUCTION MACHINE OPERATOR-SUPERVISOR MOLD YARD Transfer of Care Oxygen Therapy - Ordered -- Oxygen (CONTINUOUS), Mobile in the Home, Nasal Cannula, 2 liters per minute, 99 month(s), 05/24/25 12:01:00 EDT Transfer of Care Prognosis - Ordered -- Fair, Patient Aware: Yes Transfer of Care Rehab Potential - Ordered -- Rehab potential fair, 05/24/25 12:01:45 EDT Someone Will Contact You [...] a day 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 05/24 @ 9 am Unchanged busPIRone (busPIRone 5 mg oral [...] when you have heart failure Medicines Take zhow-psi-mpcqbmd and prescription medicines only as told by [...] 02/10/2020 Document Revised: 02/09/2020 Document Reviewed: 02/10/2020 ElseVyyo Patient Education 2019 [employer]. Chronic Obstructive Pulmonary Disease Exacerbation Chronic obstructive [...] Follow these instructions at home: Medicines Take mahj-dem-kimbfmg and prescription medicines only as told by [...] cannot use soap and water, use hand deskidding machine operator. During flu season, avoid areas that are [...] 10/16/2012 Document Revised: 10/10/2018 Document Reviewed: 12/02/2017 TheDigitel Patient Education 2020 [employer] Inc. Additional Information VACCINATE! IT SAVES LIVES! Members of the community who have not yet received the COVID-19 vaccine and would like to receive it can visit one of [facility] vaccine clinics. There are many vaccine clinic locations within the [facility]. For locations and available times, please visit https://[email or web address].[place].gov/. It is important to note that some COVID mobile vaccine clinics are held outdoors and may be canceled in rainy or stormy conditions. To learn more about pediatric vaccinations (ages 5-11), we invite you to visit the [facility] webpage. https://www.[facility].org/pages/7150-Ffuob-Nyzgqspaeqj-Twacewnhvy-Yijaf-Vhp stions.htmlTo learn more about the COVID-19 vaccine, we invite you to visit the CDC website for a list of frequently asked questions.https://www.cdc.gov/coronavirus/2019-ncov/vaccines/faq.html [facility] Patient Portal Access Instructions: Stay connected with your healthcare team and access your personal medical information anytime with the [facility] Patient Portal. Please follow the directions below to create your [facility] account: 1.Access the email account you provided upon registration to the hospital/physician office.2.Look for an invitation email from [facility].3.Open the email and access the invitation link: AcceptInvitation to [facility].4.Fill in the required randle to create your account. To access your account, visit [email or web address]. Click the blue button labeled Access Patient Portal and then log in with the username [...] who you will allowto register on the [facility] Patient Portal for access to your information. You can also access the [facility] Patient Portal on the [facility] larissa. Simply click on Patient Portal and then log into your account. If you would like to receive a full copy of your medical records, please contact the [facility] Medical Records Department by calling [phone], Saturday through Saturday between 8 a.m. and [...] Call your local pharmacy or go to http://Widemile.ExactCost/6Y8Ob8h to find one close to you.3.Make use of household items: Use cat litter or old coffee grounds to dispose medications if other options arenot available. Mix your drugs with these household products, seal them in an airtight container andthrow it into the garbage. Call [facility]: [phone] to be sure your drugs can be [...] Patient Education Materials Heart Failure, Self Care, Qzoc-rz-Csvv Chronic Obstructive Pulmonary Disease Exacerbation, Ipmm-ae-Vauv Medication Leaflets My discharge plan and instructions have been reviewed and explained to me and I,STEVEN KOENIG understand my current condition and have read and understand these discharge instructions. I have received a written copy of the plan/instructions. If I have questions, I am aware that I should contact my doctor. 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07-13-2025 Note Date of Service 05/23/2025 Chief Complaint [...] The lasix was likely started by her grease worker so this provider is not changing it. She can discuss it further with her grease worker. Patient wanted to walk down to the [...] by EMMA DEMARCO on 05/23/2025 03:[address] [facility]07-12-2025 Note. MICRO - Microbiology PROCEDURE: Blood Culture [...] Locations *1: This test was performed at: [address], [address] [place], [place] [address]86[address]-12-2025 Note. MICRO - Microbiology PROCEDURE: Blood Culture [...] Locations *1: This test was performed at: [address], [address] [place], [place] [address]-12-2025 Nurse Progress note Pt expressing frustration re: awaiting insurance approval for transfer to SNF. Pt angry with profanities, emotional support provided. TORI Sin in to see patient with update on process. PRN ativan administered per orders. Pt states she is considering leaving and going home today. Pt educated on plan of care and need for SNF services. SHAPE BRICK MOLDER Emma made aware. Digitally Signed by Nayana Gudino RN on 05/22/2025 12:[address] [facility]07-12-2025 Note Date of Service 05/22/2025 Chief Complaint [...] patient that she cannot go to the intermediate for a skilled stay until her insurance company gives approval. Likewise, they should pay her hospital bill because they are holding up this process. She is requestingto speak to the social science teacher. She is aware that the social science teacher is coming in today but we are [...] Date: May 16, 2025 Verified By: ANTHONY EMRIDA MD CLINICAL STATEMENT: IMPRESSION: Left pleural fluid [...] Dr. Reinaldo Joseph. Anticipated Date of Discharge waiting for precert Time Spent 36 minutes spent reviewing past diagnostic tests, reviewing lab results, vital sign trends, medicalhistory, reviewing medications and ordering home medications, examining patient, discussed plan of care with care team, collaborating with physician, and documenting in chart. Digitally Signed by EMMA DEMARCO on 05/22/2025 11:[address] [facility]07-11-2025 Note Date of Service 05/21/2025 Chief Complaint [...] approve her for a skilled stay at [facility]. If we do not get precert today, [...] by EMMA DEMARCO on 05/21/2025 04:[address] [facility]07-07-2025 Note. MICRO - Microbiology PROCEDURE: [...] Locations *1: This test was performed at: [address], [address] [place], [place] [address]-07-2025 Note. MICRO - Microbiology PROCEDURE: Legionella Urine [...] Locations *1: This test was performed at: [address], [address] [place], [place] [address]-07-2025 Evaluation + Plan noteExtracted from: Title:History and Physical Author:ARLEN STRONG APRN-SUPERVISOR MOLD YARD Date:05/17/25 1. Acute exacerbation of chr onic [...] agreeable to people coming into her home. sawmill worker reached out to APS for follow-up. [...] Date:07/30/2025 10:00:00 AM Scheduled Provider:EMMA QUEEN DO Location:[facility] Appointment Type:PC OV Future Scheduled Tests Laboratory* Basic Metabolic Panel 01/11/25 * N-Terminal proBNP 01/11/25 Radiology* MRI Cardiac Morphology & Func W+W/O Cont 02/23/25 * CT Low Dose Lung Cancer Screening (LDCT) 03/10/25 [facility] 07-07-2025 Note Date of Service 05/17/25 Chief Complaint Arrives via EMS with c/o SOB from home History of Present Illness 69-year-old female with past medical history significant for COPD, hypertension, hyperlipidemia, PAD, CAD s/p PCI, cardiomyopathy (LVEF 30% 12/2024), TBI, depression, anxiety, GERD, hepatitis C, tobacco use, chronic respiratory failure on 2 L nasal cannula. Patient presented to [facility] emergency department 05/16/2025 with increasing dyspnea. [...] agreeable to people coming into her home. sawmill worker reached out to APS for follow-up. [...] Ongoing Alcohol use disorder Asthma 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 Cardiomyopathy COPD with chronic bronchitis Depression, [...] Constant Order Digitally Signed by ARLEN STRONG APRN-SUPERVISOR MOLD YARD on 05/17/2025 12:41 PM Digitally Signed by SHAUNA VALDEZ DO on 05/17/2025 06:[address] [facility]07-06-2025 Note* Exam Date Time Procedure Performing Provider Status 05/16/25 9:11 PM EKG [ED AOH] - CV BRIAN TRINIDAD DO; Aut h (Verified) ECG Final Report Sinus rhythm Biatrial enlargement Probable left ventricular hypertrophy Nonspecific T abnormalities, lateral leads Baseline wander in lead(s) V2,V3 Electronic Signature: BRIAN TRINIDAD DO 05/16/2025 21:26:27 [facility]07-06-2025 Note* Exam Date Time Procedure Performing Provider Status 05/16/25 8:02 PM XR Chest 1 View ANTHONY MERIDA MD; [facility] (Verified) [id number] ORIGINAL EXAMINATION: ONE XRAY VIEW OF THE [...] 05/16/2025 8:27:46 PM Ordering Provider: BRIAN TRINIDAD [facility]04-26-2025 Hospital Discharge instructions Patient Education [...] oxygen Your health care provider or a termite control service representative from your medical lab technician company will show you how touse your [...] allow smoking near your oxygen. Put up no smoking signs in your home. Avoid smoking areas [...] not move around. Follow instructions from your medical lab technician company about how to safely secure your tank. Make sure you have enough oxygen for the amount of time you will be away from home. If you are planning air travel, contact the airline to find out if they allow the use of an approved portable oxygen concentrator. You may also need documents from your health care provider and medical lab technician company before you travel. General safety tips If you use an oxygen cylinder, make sure it is in a stand or secured to an object that will not move (fixed object). If you use liquid oxygen, make sure its container is kept upright. If you use an oxygen concentrator: ?Tell your [employer] company. Make sure you are given priority [...] Summary Your health care provider or a termite control service representative from your medical lab technician company will show you how touse your [...] 01/17/2005 Document Revised: 04/16/2019 Document Reviewed: 05/21/2017 TheDigitel Patient Education 2020 TheDigitel Inc. 03/06/2025 11:50:46 Chronic Obstructive Pulmonary Disease, Kxro-ot-Uedm Chronic Obstructive Pulmonary Disease Chronic obstructive pulmonary [...] Follow these instructions at home: Medicines Take csnz-lcg-xvtwcto and prescription medicines only as told by [...] keep yourself as healthy as possible. Take cmaa-igh-uztvdsx and prescription medicines only as told by your doctor. If you smoke, stop. Smoking makes the problem worse. This information is not intended to replace advice given to you by your health care provider. Make sure you discuss any questions you have with your health care provider. Document Released: 04/15/2009 Document Revised: 10/10/2018 Document Reviewed: 12/02/2017 TheDigitel Patient Education 2020 [employer] Inc. Follow Up Care 03/04/2025 05:49:38 With:EMMA QUEEN DO Address: [address] [facility] [place] [address] [phone] When:3-5 days Comments:Please call to schedule your post-hospital follow-up appointment. [facility] 04-26-2025 Note Discharge Instructions Thank you for allowing [facility] to assist you with your healthcare needs. The following is importantdischarge information regarding your hospital visit. Your Care Team [facility] Your Diagnosis 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 Cardiomyopathy Chronic obstructive pulmonary disease IGOR [...] should change your mind you can call [facility] at [phone]. You indicated that you would be interested in assisted living facility. [facility] has an assisted living and they also have Medicaid waiver. Their phone number is [phone]. You should be able tocall them on Saturday for more information. Scheduled Follow-Up Appointments Appointment Type When With Where Contact Information StatusCT Thorax Screening w/o Contrast 03/10/2025 04:00 PM EDT [facility] [phone] Confirmed PC OV 07/30/2025 10:00 AM EDT EMMA QUEEN DO [address] [phone] Confirmed Follow Up Appointments Follow Up with EMMA QUEEN DO When:Within 3-5 days Where:[address] [place] [phone] Additional Information: Please call to schedule your [...] a day Duration: 30 Days Pickup at [facility]/pharmacy #[id number] [facility] 03/06 New predniSONE (prednisone 10mg tab (TAPER)) Taper 65-15-74-39-00-21-10-5 mg x 1 day until gone by mouth Once a day (in the morning) Duration: 8 Days Pickup at [facility]/pharmacy #[id number] 03/06 Unchanged albuterol (albuterol MDI (90 mcg/ inh) CFC free inhalation aerosol) 2 puff(s) by inhalation Four (4) times a day as needed for as needed for wheezing COPD with chronic bronchitis Pickup at [facility]/pharmacy #[id number] 03/06 Unchanged albuterol (albuterol 0.63 mg/ 3 mL (0.021%) inhalation solution) 3 Milliliter by inhalation Four (4) times a day Unchanged amLODIPine (amLODIPine 5 mg oral tablet) 1 tab(s) by mouth Once a day 03/06 Unchanged aspirin (aspirin 81 mg oral tablet, chewable) 81 Milligram Chewed Once a day 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 03/06 Unchanged clopidogrel (clopidogrel 75 mg [...] Once a day GERD (gastroesophageal reflux disease) 0603/06 Unchanged rosuvastatin (Crestor 20 mg oral tablet) 1 tab(s) by mouth Once a day 03/06 Unchanged sacubitril-valsartan (Entresto 24 mg-26 mg oral tablet) 1 tab(s) by mouth Two (2) times a day 03/06 Unchanged traZODone (traZODone 100 mg oral tablet) 1 tab(s) by mouth Daily at bedtime Psychophysiologic insomnia 08pm 03/05 Pharmacy Information [facility]/pharmacy #[id number]: [address], [place] [id number] [phone] Please take this list to your next [...] may report side effects to FDA at [phone]. What other drugs will affect clopidogrel? Sometimes it is not safe to use certain medications at the same time. Some drugs can affect your blood levels of other drugs you take, which may increase side effects or make the medications less effective. Tell your doctor about all your other medicines, especially: a stomach acid silk trimmer such as omeprazole, Nexium, or Prilosec; an antidepressant such as citalopram, fluoxetine, sertraline, Cymbalta, Effexor, Lexapro, Pristiq, or Prozac; rifampin; a blood thinner--warfarin, Coumadin, Jantoven; or NSAIDs (nonsteroidal anti-inflammatory drugs)--aspirin, ibuprofen (Advil, Motrin), naproxen (Aleve), celecoxib, diclofenac, indomethacin, meloxicam, and others. This list is not complete. Other drugs may affect clopidogrel, including prescription and kidt-mab-oaivnjq medicines, vitamins, and herbal products. Not all [...] to ensure that the information provided by [employer]. ('[employer]') is accurate, up-to-date, and complete, but no guarantee is made to that effect. Drug information contained herein may be time sensitive. [employer] information has been compiled for use by healthcare practitioners and consumers in the [place] and therefore [employer] does not warrant that uses outside of the [place] are appropriate, unless specifically indicated otherwise. Thing[employer] drug information does not endorse drugs, diagnose patients or recommend therapy. Thing[employer]s drug information isan informational resource designed to [...] effective or appropriate for any given patient. [employer] does not assume any responsibility for any aspect of healthcare administered with the aid of information [employer] provides. The information contained herein is not intended to cover all possible uses, directions, precautions, warnings, drug interactions, allergic reactions, or adverse effects. If you have questions about the drugs you are taking, check with your doctor, nurse or pharmacist. Copyright 1967-7206 [employer]. Version: 18.. Revision Date: 02/08/2021. Education Materials Home Oxygen [...] oxygen Your health care provider or a termite control service representative from your medical lab technician company will show you how touse your [...] allow smoking near your oxygen. Put up no smoking signs in your home. Avoid smoking areas [...] not move around. Follow instructions from your medical lab technician company about how to safely secure your tank. Make sure you have enough oxygen for the amount of time you will be away from home. If you are planning air travel, contact the airline to find out if they allow the use of an approved portable oxygen concentrator. You may also need documents from your health care provider and medical lab technician company before you travel. General safety tips [...] Summary Your health care provider or a termite control service representative from your medical lab technician company will show you how touse your [...] 01/17/2005 Document Revised: 04/16/2019 Document Reviewed: 05/21/2017 TheDigitel Patient Education 2020 [employer]itel Inc. Chronic Obstructive Pulmonary Disease Chronic obstructive [...] Follow these instructions at home: Medicines Take wyzi-nps-wvfgacn and prescription medicines only as told by [...] keep yourself as healthy as possible. Take hakp-fyj-zifjzdb and prescription medicines only as told by your doctor. If you smoke, stop. Smoking makes the problem worse. This information is not intended to replace advice given to you by your health care provider. Make sure you discuss any questions you have with your health care provider. Document Released: 04/15/2009 Document Revised: 10/10/2018 Document Reviewed: 12/02/2017 TheDigitel Patient Education 2020 [employer]itel Inc. Additional Information VACCINATE! IT SAVES LIVES! Members of the community who have not yet received the COVID-19 vaccine and would like to receive it can visit one of [facility] vaccine clinics. There are many vaccine clinic locations within the [facility]. For locations and available times, please visit https://gettheshot.coronavirus.[place].gov/. It is important to note that some COVID mobile vaccine clinics are held outdoors and may be canceled in rainy or stormy conditions. To learn more about pediatric vaccinations (ages 5-11), we invite you to visit the [facility] webpage. https://www.[facility].org/pages/5972-Dtqdn-Hjzenvhemyc-Jwcvtnzqhb-Uvjok-Nlt stions.htmlTo learn more about the COVID-19 vaccine, we invite you to visit the CDC website for a list of frequently asked questions.https://www.cdc.gov/coronavirus/2019-ncov/vaccines/faq.html [facility] Patient Portal Access Instructions: Stay connected with your healthcare team and access your personal medical information anytime with the [facility] Patient Portal. Please follow the directions below to create your [facility] account: 1.Access the email account you provided upon registration to the hospital/physician office.2.Look for an invitation email from [facility].3.Open the email and access the invitation link: AcceptInvitation to [facility].4.Fill in the required randle to create your account. To access your account, visit [email or web address]. Click the blue button labeled Access Patient Portal and then log in with the username and password that you created in the steps above. You will be able to view your test results, lab results, a summary of your visits, upcoming appointments and more. There is also a convenient messaging option where you can send secure messages to your p Subtechvider. In addition, you will have the ability to download any documents or summaries to your computer and/or send the information securely to a physician. Remember that your healthcare information is confidential, so carefully consider who you will allowto register on the [facility] Patient Portal for access to your information. You can also access the [facility] Patient Portal on the [facility] Com[employer]where larissa. Simply click on Patient Portal and then log into your account. If you would like to receive a full copy of your medical records, please contact the [facility] Medical Records Department by calling [phone], Saturday through Saturday between 8 a.m. and [...] Call your local pharmacy or go to http://bit.ly/1H6Iq0k to find one close to you.3.Make use of household items: Use cat litter or old coffee grounds to dispose medications if other options arenot available. Mix your drugs with these household products, seal them in an airtight container andthrow it into the garbage. Call [facility]: [phone] to be sure your drugs can be [...] Oxygen Use, Adult Chronic Obstructive Pulmonary Disease, Tijz-zr-Qyfu Medication Leaflets Plavix My discharge plan and instructions have been reviewed and explained to me and I,STEVEN KOENIG understand my current condition and have read and understand these discharge instructions. I have received a written copy of the plan/instructions. If I have questions, I am aware that I should contact my doctor. 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04-26-2025 Note Date of Service 03/05/2025 Chief Complaint COPD Subjective 69-year-old female with past medical history significant for COPD, hypertension, hyperlipidemia, PAD, CAD s/p PCI, cardiomyopathy (LVEF 30% 12/2024), TBI, depression, anxiety, GERD, hepatitis C, anxiety, tobacco use, chronic respiratory failure on 2 L nasal cannula. Patient presented to [facility] emergency department 03/04/2025 via EMS for [...] need to discuss this with her PCP ordiscuss with hospice. HTN- SBP goal 140 or [...] by ARLEN STRONG on 03/06/2025 08:[address] [facility]04-25-2025 Nurse Progress note Hospice nurse in [facility] to get patient and patients family educated on Hospice and get patient signed up with [facility]. At this time pt is refusing [...] and she wanted to learn about it, it doesn't hurt to get information about it. Pt states that she is working on getting a place of her own, but that her daughter is unaware of this and would be really unhappy if she knew. Digitally Signed by Christina Logan RN on 03/05/2025 06:[address] [facility]04-25-2025 Pastoral care Progress note Pastoral Care Note Entered On: 03/05/2025 9:50 EDT Performed On: 03/05/2025 9:48 EDT by Jatinder Tukr Pastoral Care Type of Pastoral Visit : Initial visit Spiritual Care Visit Initiated by : Clean Rice Grader And Reel Tender Spiritual Care Reason for Visit : General Spiritual Assessment : Not using [employer], Spiritual, not Bahai, Positive Image of God Spiritual Care Emotional [...] by Jatinder Turk on 03/05/2025 09:[address] [facility]04-24-2025 Note Date of Service 03/04/2025 [...] 2 L nasal cannula. Patient presented to [facility] emergency department 03/04/2025 via EMS for [...] Ongoing Alcohol use disorder Asthma 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 Cardiomyopathy COPD with chronic bronchitis Depression, [...] by ARLEN STRONG on 03/04/2025 03:24 PM [place] [id number] Evaluation + Plan noteExtracted from: Title:History and Physical Author:ARLEN STRONG PLASTICS PRODUCTION MACHINE OPERATOR-SUPERVISOR MOLD YARD Date:03/04/25 1. Chronic obstructive pulmo nary disease [...] Appointments Appointment Date:03/10/2025 04:00:00 PM Scheduled Provider: Location:[facility] Appointment Type:CT Chest (Low Dose) Screening/CT Lung (L Appointment Date:07/30/2025 10:00:00 AM Scheduled Provider:EMMA QUEEN DO Location:[facility] Appointment Type: OV Future Scheduled Tests Laboratory* Basic Metabolic Panel 01/11/25 * N-Terminal proBNP 01/11/25 Radiology* MRI Cardiac Morphology & Func W+W/O Cont 02/23/25 * CT Low Dose Lung Cancer Screening (LDCT) 03/10/25 [facility] 04-24-2025 HCoV 229E RNA IVANA+non-probe Ql (Nph)Not Detected *NA* (03/04/25 10:09 AM)AH Auto Viro/Sero [id number] Note* Exam Date Time Procedure Performing Provider Status 03/04/25 6:21 AM XR Chest 1 View CLAUDE CAMPUZANO MD; Auth (Verified) [id number] ORIGINAL EXAMINATION: ONE XRAY VIEW OF THE [...] Date: 03/04/2025 6:41:45 AM Ordering Provider: EMMANUEL SHAI[facility]04-24-2025 Note* Exam Date Time Procedure Performing Provider Status 03/04/25 6:01 AM EKG [ED AOH] - CV DONNALuis EMMANUEL ; Auth (Verified) ECG Final Report Sinus rhythm Probable left atrial enlargement Probable left ventricular hypertrophy Anterior Q waves, possibly due to LVH Compared to ECG at 02/19/2025 01:15:39 BORDERLINE ECG Electronic Signature: NEELYONATHANLuis EMMANUEL 03/04/2025 06:19:02 [facility]04-16-2025 Note. MICRO - Microbiology PROCEDURE: Blood Culture [...] Locations *1: This test was performed at: [address], [address] [place], [place] [address]-16-2025 Note. MICRO - Microbiology PROCEDURE: Blood Culture [...] Locations *1: This test was performed at: [address], [address] [place], [place] [address]-11-2025 Note. MICRO - Microbiology PROCEDURE: Streptococcus Pneumoniae [...] Locations *1: This test was performed at: [address]04-11-2025 Note. MICRO - Microbiology PROCEDURE: Legionella Urine [...] Locations *1: This test was performed at: [facility], [address] [place] [address], [facility]- , [facility]02-03-2025 Hospital Discharge instructions Patient Education 12/14/2024 09:07:49 [...] Document Reviewed: 10/29/2014 ExitCare Patient Information 2015 [employer]. This information is not intended to replace [...] until you are awake and alert. Take cvhj-oam-bbacuzd and prescription medicines only as told by [...] 08/18/2014 Document Revised: 10/10/2018 Document Reviewed: 02/16/2017 TheDigitel Patient Education 2020 [employer]. Follow Up Care 11/30/2024 10:45:53 With:XAVIER GONZALEZ MD Address: [address] [place] [address] [address] [place] [address]- When:01/18/2025 10:00:00 [facility] 02-03-2025 Summary of episode note Discharge Instructions Thank you for allowing [facility] to assist you with your healthcare needs. The following is importantdischarge information regarding your hospital visit. Your Care Team EMMA QUEEN DO What to do next Scheduled Follow-Up Appointments Appointment Type When With Where Contact Information StatusEcho - Echocardiogram Adult 12/18/2024 02:00 PM EST [facility] [phone] Confirmed CV OV 01/18/2025 10:00 AM EDT [facility] Confirmed PC OV 01/21/2025 02:00 PM EDT EMMA QUEEN DO [address] [phone] Confirmed Follow Up Appointments Follow Up with XAVIER GONZALEZ MD When:01/18/2025 10:00 AM EDT Where:[address] [place] [address] [address] [place] [address]- The Following Activity and Diet Have Been [...] a day 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 Unchanged clopidogrel (clopidogrel 75 mg oral [...] Document Reviewed: 10/29/2014 ExitCare Patient Information 2015 [employer]. This information is not intended to replace [...] until you are awake and alert. Take znkk-itv-emukikf and prescription medicines only as told by [...] 08/18/2014 Document Revised: 10/10/2018 Document Reviewed: 02/16/2017 ElseVyyo Patient Education 2020 [employer]. Additional Information VACCINATE! IT SAVES LIVES! Members of the community who have not yet received the COVID-19 vaccine and would like to receive it can visit one of [facility] vaccine clinics. There are many vaccine clinic locations within the [facility]. For locations and available times, please visit https://gettheshot.coronavirus.[place].gov/. It is important to note that some COVID mobile vaccine clinics are held outdoors and may be canceled in rainy or stormy conditions. To learn more about pediatric vaccinations (ages 5-11), we invite you to visit the [facility] webpage. https://www.[facility].org/pages/1059-Tinwd-Erwbhjyldks-Bnelpbcdrs-Juoxy-Lbh stions.htmlTo learn more about the COVID-19 vaccine, we invite you to visit the CDC website for a list of frequently asked questions.https://www.cdc.gov/coronavirus/2019-ncov/vaccines/faq.html [facility] Patient Portal Access Instructions: Stay connected with your healthcare team and access your personal medical information anytime with the [facility] Patient Portal. Please follow the directions below to create your [facility] account: 1.Access the email account you provided upon registration to the hospital/physician office.2.Look for an invitation email from [facility].3.Open the email and access the invitation link: AcceptInvitation to [facility].4.Fill in the required randle to create your account. To access your account, visit [employer]/JumpPostgavint. Click the blue button labeled Access Patient Portal and then log in with the username [...] who you will allowto register on the [facility] Patient Portal for access to your information. You can also access the [facility] on the [facility] Anywhere larissa. Simply click on Patient Portal and then log into your account. If you would like to receive a full copy of your medical records, please contact the [facility] Medical Records Department by calling [phone], Saturday through Saturday between 8 a.m. and [...] Call your local pharmacy or go to http://Widemile.ExactCost/8J2Hd5b to find one close to you.3.Make use of household items: Use cat litter or old coffee grounds to dispose medications if other options arenot available. Mix your drugs with these household products, seal them in an airtight container andthrow it into the garbage. Call [facility]: [phone] to be sure your drugs can be [...] aware that I should contact my doctor. 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 Discharge summary Date of Service 12/14/2024 Discharge [...] AM Digitally Signed by MILO MAJOR MD [facility] [id number] Miscellaneous Notes* Telephone Encounter - Nena Dozier RN - 01/24/2024 2:16 PM EDT Patient calls to ask if provider would be willing to call in one more albuterol inhaler until seen by PCP in [facility]. Appointment to establish care is 01/31/2024 but inhaler is completely out and patient is having trouble with wheezing/sob. Pended. Patient requests call back at [phone]. Nena Dozier, RN documented [facility] Miscellaneous Notes* Telephone Encounter - Christina Greco LPN - 12/24/2023 9:41 AM EST Spoke with pt and she reports she is going to stay in [place] and will be getting an apt scheduled with Dr.Jacqueline Beaver. Does not have an apt yet Pt has been waiting for her insurance to start at the beginning of the month. Christina Greco LPN * Telephone Encounter - Oly Durbin APRN.CNP - 12/24/2023 9:03 AM EST Patient was advised in September that she needed to find new PCP in [place] if she was going to remain there. [...] you. Irena Cantor LPN. documented in this encounterEast [facility]12-08-2023 Miscellaneous Notes* Telephone Encounter - Ranulfo [...] notify patient. Telma Austin documented in this encounterEast [facility]11-16-2023 Miscellaneous Notes* Telephone Encounter - Sal Lee LPN - 09/26/2023 8:08 AM EST Pt notified of pcp's message. Pt states she will be coming back to [place]. Is just in [place] for a few months to help out [...] needed for wheezing/shortness of breath. Authorizing Provider: ULISSE HERMOSILLO amLODIPine (NORVASC) 10 mg tablet 90 [...] to report that she is currently in [place] and will be there for the next several months. Patient is going to run out of medication and is unable to transfer prescriptions. Patient asking if provider would send prescriptions to [facility] pharmacy in [place]. Pended 90 day request for review. Nena Dozier, RN documented in this encounterEast [facility] City Hospital09-08-2023 NotePatient Outreach (NETNAV) STEVEN KOENIG ([id number]) 1955 F Date Time Provider Department 07/19/23 MELISSA VITAL During your visit today, we recorded the following information about you: Melissa Vital MA 07/19/2023 3:08 PM Addendum POPULATION HEALTH NAVIGATION OUTREACH Action/FYI Spoke with patient. Patient declined scheduling annual wellness exam/htn appointment. Patient states in [place] right now. Patient reminded of flu shot due Per 05/08/23 [facility] office note return in about 6 months (around 11/07/23) for medicare wellness exam. Patient Identified by Name and : YES, via phone Outreach Outcome/Action Spoke to patient / parent / legal guardian: Patient declined Did you use a PCP flex slot to schedule this appointment? N/A Reason for Outreach Care Gap or Scheduling/Wellness visits Payer: Payor: [employer] [facility] / Plan: [employer] HMO / Product Type: HMO / Care [...] Allergies) Date Reviewed: 05/09/2023 Reviewed by: Mely Girffin PA-C - Fully Assessed Reason for Visit: Population Health Navigation Outreach [3910] Cmt: Navigator Kailash [facility] outreach Prescriptions as of 07/19/2023 - aspirin [...] 1 TABLET BY MOUTH EVERY DAY - typkutlfumy-rodfhveeb-dlbtoool (TRELEGY ELLIPTA) 200-62.5-25 mcg inhalation powder Inhale [...] minutes, none*09/28/2019 07/07/2020 PAD (peripheral artery disease) ([facility]) [I73.9] 09/28/2019 Anxiety and depression [F41.9, F32.A] 10/06/2019 Hypomagnesemia [E83.42] 10/22/2019 10/23/2019 Asthma [J45.909] 07/07/2020 07/07/2020 Prediabetes [R73.03] 02/04/2021 Chest pain [R07.9] 05/08/2021 Other chest pain [R07.89] 05/08/2021 Stenosis of carotid artery [I65.29] 05/08/2021 Mixed hyperlipidemia [E78.2] 05/08/2021 Abnormal stress test [R94.39] 08/26/2021 Dyspnea on exertion [R06.09] 08/26/2021 Coronary artery disease involving round valley tolbert*09/27/2021 Lung nodule [R91.1] 08/31/2022 History of hemoptysis [Z87.898] 11/20/2022 Encounter Status:Closed by MELISSA VITAL on 07/[facility]/23[facility] [facility] 07-19-2023 NoteHNO ID: [id number] Author: Melissa Vital MA Service: ? Author Type: Student Services Director Type: Progress Notes Filed: 07/19/2023 3:08 PM Note Text: POPULATION HEALTH NAVIGATION OUTREACH Action/FYI Spoke with patient. Patient declined scheduling annual wellness exam/htn appointment. Patient states in [place] right now. 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 Patient Identified by Name and : YES, via phone Outreach Outcome/Action Spoke to patient / parent / legal guardian: Patient declined Did you use a PCP flex slot to schedule this appointment? N/A Reason for Outreach Care Gap or Scheduling/Wellness visits Payer: Payor: [employer] BLUE CROSS [employer] BLUE SHIELD / Plan: Clearwave HMO / Product Type: HMO / Care Gap Reviewed:: Annual Wellness visit Controlling Blood Pressure Flu Vaccine Reminder: Reminder note to check Health Maintenance for items below Health Maintenance items due: BONE DENSITY Never done BP CONTROLLED (<130/80) due on 01/06/2021 INFLUENZA(1) due on 07/12/2023 Navigation Signature: Melissa Vital MA July 19, 2023 10:53 [facility]08-03-2023 Miscellaneous Notes* Telephone Encounter - Elizabeth Ly Ma - 06/13/2023 4:23 PM EDT Patient contacted via telephone regarding upcoming NEW patient appointment with Dr. Harris on 06/14/23. Patient informed of the following: This is the [facility] calling regarding your upcoming appointment with Dr. Harris. To avoid a delay in your care, please bring any radiology images that have been [facility] on a disk to be [...] not fill disability or any other insurance-related forms/documentation Patient states she will be leaving for out of state in 2 days. I informed her that Dr. Harris is booking out until early July for the injection. Patient requests to cancel this appointment Appointment canceled. documented [facility] Miscellaneous Notes* Telephone Encounter - Irena [...] to be taking. Please call her at [phone]. documented in [facility]23 Miscellaneous Notes* Telephone Encounter - Ranulfo [...] notify patient. Cailin Austin documented in this encounter[facility]07-28-[facility]23 Miscellaneous Notes* Telephone Encounter - Jenn Almaraz RN - 06/07/2023 8:18 AM EDT Pharmacy electronically requests the following refill(s) Requested Prescriptions Pending Prescriptions Disp Refills amLODIPine (NORVASC) 10 mg tablet [Pharmacy Med Name: AMLODIPINE BESYLATE 10 MG TAB] 90 tablet 3 Sig: TAKE 1 TABLET BY MOUTH EVERY DAY Jenn Almaraz RN documented in this encounterEast [facility]06-30-2023 Miscellaneous Notes* Telephone Encounter - Hyacinth Suero LPN - 05/10/2023 2:59 PM EDT Spoke with pt gave information provided. P[t voices understanding. Will try cholesterol med uses [facility] in [place]. Please assist in scheduling with physical therapy and pain management. * Telephone Encounter - Ranulfo Blackman Ma - 05/10/2023 1:58 PM EDT Left message to call office. 05/10/2023 1:58 PM * Telephone Encounter - Oly Smith APRN.LINDA - 05/10/2023 1:09 PM EDT Lipids are [...] advise, Christina Franco RN documented in this encounterEast [facility]06-29-2023 NoteHNO ID: [id number] Author: Mely Griffin PA-C Service: ? Author Type: Physician Assistant Press Operator Offset Type: Progress Notes Filed: 05/09/2023 2:05 PM [...] HISTORY Diagnosis Date Acute pancreatitis 2010 Maynor Matthews Alcohol use disorder 01/18/2016 Dr. Angie [facility] Anxiety 12/14/2015 Bipolar affective disorder, currently active ([facility]) 01/18/2016 Dr. Angie Jones, [facility] Chronic bronchitis ([facility]) 07/26/2016 Closed skull fracture ([facility]) 1994 [facility], [facility] Coronary artery disease DDD (degenerative disc disease), cervical Endometriosis 2007 Essential hypertension 12/14/2015 GERD (gastroesophageal reflux disease) 03/13/2019 History of colon polyps History of gastric ulcer 12/14/2015 HLD (hyperlipidemia) Injury of left facial nerve 1994 PAD (peripheral artery disease) ([facility]) 09/28/2019 Recurrent major depression in partial remission ([facility]) 12/14/2015 S/P drug eluting coronary stent placement 08/25/2021 LAD and Dg2 Spinal stenosis Allergies: No Known Allergies isosorbide mononitrate ER (IMDUR) 30 mg 24 hr tablet TAKE 1 TABLET BY MOUTH EVERY DAY traZODone (DESYREL) 100 mg tablet Take 2 tablets by mouth daily at bedtime. kdrecyojrib-setfepjba-judcoott (TRELEGY ELLIPTA) 200-62.5-25 mcg inhalation powder Inhale [...] TOTAL FACIAL NERVE DECOMPRESSION AND/REPAIR Left 1989 [facility] I reviewed the past medical history, family history, social history and surgical history with changes noted above and updated in EMR. IMMUNIZATIONS Prevnar - 05/11/2022 Pneumovax - 04/21/2018, 09/13/2011 Influenza - 08/31/2022 CO (more content not included)...[facility] History of Present illness Narrative* Mely Griffin [...] HISTORY Diagnosis Date Acute pancreatitis 2010 Maynor Matthews Alcohol use disorder 01/18/2016 Dr. Angie [facility] Anxiety 12/14/2015 Bipolar affective disorder, currently active ([facility]) 01/18/2016 Dr. Angie Jones, [facility] Chronic bronchitis ([facility]) 07/26/2016 Closed skull fracture ([facility]) 1994 [facility], [facility] Coronary artery disease DDD (degenerative disc disease), cervical Endometriosis 2007 Essential hypertension 12/14/2015 GERD (gastroesophageal reflux disease) 03/13/2019 History of colon polyps History of gastric ulcer 12/14/2015 HLD (hyperlipidemia) Injury of left facial nerve 1994 PAD (peripheral artery disease) ([facility]) 09/28/2019 Recurrent major depression in partial remission ([facility]) 12/14/2015 S/P drug eluting coronary stent placement 08/25/2021 LAD and Dg2 Spinal stenosis Allergies: No Known Allergies isosorbide mononitrate ER (IMDUR) 30 mg 24 hr tablet TAKE 1 TABLET BY MOUTH EVERY DAY traZODone (DESYREL) 100 mg tablet Take 2 tablets by mouth daily at bedtime. flynwujfmgs-aoaipphcg-afmxueta (TRELEGY ELLIPTA) 200-62.5-25 mcg inhalation powder Inhale [...] TOTAL FACIAL NERVE DECOMPRESSION &/REPAIR Left 1989 [facility] I reviewed the past medical history, family history, social history and surgical history with changes noted above and updated in EMR. IMMUNIZATIONS Prevnar - 05/11/2022 Pneumovax 23 - 04/21/2018, 09/13/2011 Influenza - 08/31/2022 COVID-19 [...] 83 Resp 18 Ht 160 cm (5' 3) Wt 57.2 kg (126 lb) LMP (LMP Unknown) WzH956% BMI 22.32 kg/m Gen: No acute distress. [...] necessary. Mely Griffin PA-C documented in this encounterEast [facility] Hospital06-28-2023 NoteHNO ID: [id number] Author: RT Aziza(Vicky) Service: ? Author Type: Jacquard Loom Fixer Type: Progress Notes Filed: 05/08/2023 1:01 PM [...] BY: RT Aziza(R) May 08, 2023 12:52 [facility]06-28-2023 NoteHNO ID: [id number] Author: Oly Smith APRN.LINDA Service: ? Author Type: Nurse Practitioner Type: [...] HISTORY Diagnosis Date Acute pancreatitis 2010 Maynor Matthews Alcohol use disorder 01/18/2016 Dr[facility] Angie [facility] Anxiety 12/14/2015 Bipolar affective disorder, currently active ([facility]) 01/18/2016 Dr. Angie [facility] Chronic bronchitis ([facility]) 07/26/2016 Closed skull fracture ([facility]) 1994 [facility], [facility] Coronary artery disease DDD (degenerative disc disease), cervical Endometriosis 2007 Essential hypertension 12/14/2015 GERD (gastroesophageal reflux disease) 03/13/2019 History of colon polyps History of gastric ulcer 12/14/2015 HLD (hyperlipidemia) Injury of left facial nerve 1994 PAD (peripheral artery disease) ([facility]) 09/28/2019 Recurrent major depression in partial remission ([facility]) 12/14/2015 S/P drug eluting coronary stent [...] TOTAL FACIAL NERVE DECOMPRESSION AND/REPAIR Left 1989 [facility] ALLERGIES Patient has no known allergies. [...] 2 tablets by mouth daily at bedtime. 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 Angie Jones[facility] Anxiety 12/14/2015 Bipolar affective disorder, currently active ([facility]) 01/18/2016 Dr. Angie Jones[facility] Chronic bronchitis ([facility]) 07/26/2016 Closed skull fracture ([facility]) 1994 [facility], [facility] Coronary artery disease DDD (degenerative disc disease), cervical Endometriosis 2007 Essential hypertension 12/14/2015 GERD (gastroesophageal reflux disease) 03/13/2019 History of colon polyps History of gastric ulcer 12/14/2015 HLD (hyperlipidemia) Injury of left facial nerve 1994 PAD (peripheral artery disease) ([facility]) 09/28/2019 Recurrent major depression in partial remission ([facility]) 12/14/2015 S/P drug eluting coronary stent [...] TOTAL FACIAL NERVE DECOMPRESSION &/REPAIR Left 1989 [facility] ALLERGIES Patient has no known allergies. [...] 2 tablets by mouth daily at bedtime. rowgdrfjgyu-kpyhsgtau-hmauyhjr (TRELEGY ELLIPTA) 200-62.5-25 mcg inhalation powder Inhale [...] F33.41 Stable 7. Coronary artery disease involving [place] coronary artery of [place] heart without angina pectoris- ICD9: 414.01, ICD10: I25.10 Follow-up with cardiology Prescription instructions reviewed with patient as applicable. Potential red flag symptoms discussed with the patient. Reviewed appropriate action plan to take if red flag symptoms occur. Patient agreeable to treatment plan. Oly Smith APRN.CNP documented in this encounterEast [facility]06-28-2023 Instructions* Patient Instructions* Oly Smith APRN.CNP - 05/08/2023 12:24 PM EDT [facility]ology [phone] documented in this encounterEast [facility] City Hospital06-08-2023 NoteHNO ID: [id number] Author: Melissa Vital MA Service: ? Author Type: Student Services Director Type: Progress Notes Filed: 04/18/2023 10:01 AM Note Text: POPULATION HEALTH NAVIGATION OUTREACH Action/FYI Patient returned call. Per patient request scheduled follow up/htn/HCC appointment for 05/03/23 with PCP. Patient Identified by Name and : YES, via phone Outreach Outcome/Action Spoke to patient / parent / legal guardian: Patient scheduled Did you use a PCP flex slot to schedule this appointment? No Navigation Signature: Melissa Vital MA April 18, 2023 9:59 [facility]06-06-2023 NotePatient Outreach (NETNAV) STEVEN KOENIG ([id number]) 1955 F Date Time Provider Department 04/16/23 MELISSA VITAL During your visit today, we recorded the following information about you: Melissa Vital MA 04/16/2023 11:48 AM Signed POPULATION HEALTH NAVIGATION OUTREACH Action/FYI Spoke with patient. Patient states will call back later to schedule. Annual wellness/htn/HCC Declined my chart Will discuss AD with PCP Navigator Kailash amaya [facility] gap outreach F31.9 - Bipolar affective disorder, currently active (HCC) - [id number] Last Billed 08/31/2022 F33.41 - Recurrent major depression in partial remission (HCC) - [id number] Last Billed 08/31/2022 Patient Identified by Name and : YES, via phone Outreach Outcome/Action Spoke to patient / parent / legal guardian: Patient will return the call or ask for return call Did you use a PCP flex slot to schedule this appointment? N/A Reason for Outreach HCC or suspected condition Payer: Payor: [employer] / Plan: Clearwave HMO / Product Type: HMO / Care [...] Visit: Population Health Navigation Outreach [3910] Cmt: Janette amaya [facility] outreach Prescriptions as of 04/18/2023 - isosorbide mononitrate ER (IMDUR) 30 mg 24 hr tablet TAKE 1 TABLET BY MOUTH EVERY DAY - predniSONE (DELTASONE) 10 mg tablet TAKE TWO DAILY FOR 5 DAYS THEN ONE DAILY FOR 10 DAYS - traZODone (DESYREL) 100 mg tablet Take 2 tablets by mouth daily at bedtime. - fvektvwqnbq-utfkzsvci-wvpksnhn (TRELEGY ELLIPTA) 200-62.5-25 mcg inhalation powder Inhale [...] cardiovascular exam [Z01.810] 09/28/201909/12 (more content not included)...[facility] NoteHNO ID: [id number] Author: Melissa Vital MA Service: ? Author Type: Student Services Director Type: Progress Notes Filed: 04/16/2023 11:48 AM Note Text: POPULATION HEALTH NAVIGATION OUTREACH Action/FYI Spoke with patient. Patient states will call back later to schedule. Annual wellness/htn/HCC Declined my chart Will discuss AD with PCP Navigator Kailash amaya HCC gap outreach F31.9 - Bipolar affective disorder, currently active (HCC) - [id number] Last Billed 08/31/2022 F33.41 - Recurrent major depression in partial remission (HCC) - [id number] Last Billed 08/31/2022 Patient Identified by Name and : YES, via phone Outreach Outcome/Action Spoke to patient / parent / legal guardian: Patient will return the call or ask for return call Did you use a PCP flex slot to schedule this appointment? N/A Reason for Outreach HCC or suspected condition Payer: Payor: [employer] / Plan: KAILASH [employer] HMO / Product Type: HMO / Care Gap Reviewed:: Annual Wellness visit Controlling Blood Pressure Reminder: Reminder note to check Health Maintenance for items below Health Maintenance items due: BONE DENSITY Never done BP CONTROLLED (<130/80) due on 01/06/2021 LDL CHOLESTEROL due on 09/27/2022 ADVANCE DIRECTIVE DISCUSSION Never done Navigation Signature: Melissa Vital MA April 16, 2023 11:39 [facility]06-06-2023 History of Present illness Narrative* Melissa Vital MA - 04/16/2023 11:39 AM EDT POPULATION HEALTH NAVIGATION OUTREACH Action/FYI Spoke with patient. Patient states will call back later to schedule. Annual wellness/htn/HCC Declined my chart Will discuss AD with PCP Navigator Kailash amaya [facility] gap outreach F31.9 - Bipolar affective disorder, currently active (HCC) - [id number] Last Billed 08/31/2022 F33.41 - Recurrent major depression in partial remission (HCC) - [id number] Last Billed 08/31/2022 Patient Identified by Name and : YES, via phone Outreach Outcome/Action Spoke to patient / parent / legal guardian: Patient will return the call or ask for return call Did you use a PCP flex slot to schedule this appointment? N/A Reason for Outreach HCC or suspected condition Payer: Payor: [employer] / Plan: [employer]INDI [employer] HMO / Product Type: HMO / Care Gap Reviewed:: Annual Wellness visit Controlling Blood Pressure Reminder: Reminder note to check Health Maintenance for items below Health Maintenance items due: BONE DENSITY Never done BP CONTROLLED (<130/80) due on 01/06/2021 LDL CHOLESTEROL due on 09/27/2022 ADVANCE DIRECTIVE DISCUSSION Never done Navigation Signature: Melissa Vital MA April 16, 2023 11:39 AM documented in this encounterEast [facility] Hospital05-23-2023 NoteHNO ID: [id number] Author: Doron Self DO Service: Vascular Surgery Author Type: Physician Type: Progress Notes Filed: 04/09/2023 5:57 PM Note Text: NAME: STEVEN KOENIG CLINIC NO: [id number] DATE OF SERVICE: 04/02/2023 Subjective: Elle is [...] concerns. Doron Self D.O. KB/089 Audio #: [id number] Date Dictated: 04/02/2023 08:47:00 Date Typed: 04/06/2023 05:15:49 Date Revised:[facility]23 NoteHNO ID: [id number] Author: Doron Self, DO Service: ? Author Type: Physician Type: Progress Notes Filed: 04/02/2023 10:58 AM Note Text: This office note has been dictated. Doron Self, [facility] Miscellaneous Notes* Telephone Encounter - Doron [...] advise. Doron Navarrete LPN documented in this encounterEast [facility] Hospital02-27-[address] Teague [facility] January 07, 2023 11:57am Note Date/Time January 07, 2023 11:47am [facility] Medical Records Department [address] [place] [address] Instructions for Home/Discharge Instructions 01/07/23 1143 MR#: [id number] Acct: [id number] Name: STEVEN KOENIG Rep #:[id number] : [...] can be placed): Home, Self Care 01/07/23 1157<Electronically signed by Siddhartha Teague DO>Siddhartha Teague DO CC: Dr. Linda Luque MD; Dr. Joel Sauer DO; Dr. Ulises Hermosillo MD ~ Signed [facility] Work Phone: 1(964) 829-150402-26-[address] Sauer [facility] January 06, 2023 12:31pm Note Date/Time January 06, 2023 7:53am [facility] Medical Records Department [address] [place] [address] Progress Note - Hospitalist 01/06/23 0749 MR#: [id number] Acct: [id number] Name: STEVEN KOENIG Rep #:[id number] : 1955 67 From: Joel Sauer DO PCP: Dr. Ulises Hermosillo MD Status:A DM IN Location: [place] [address] Reason for Visit Reason for Visit: Diagnoses [...] 01/03/23 10:58 AG (Rec: 01/03/23 10:58 AG [id number]) Nutrition Malnutrition Evidence of Malnutrition Exists Yes [...] Expectorated/Coughed Respiratory Culture - Final Streptococcus pneumoniae 01/02/23 23:40 Mucosa - Nasopharyngeal [...] to discharge. Charges/Coding Visit Charges Inpatient E&M: 64268 Subs Hosp L2 01/06/23 1231 <Electronically signed by Joel Sauer DO> Cosigner Signature (if applicable): CC: ~ Signed [facility] Work Phone: 1(976) 109-294302-26-[address] Luque [facility] January 06, 2023 3:54am Note Date/Time January 06, 2023 3:54am [facility] Medical Records Department [address] [place] [address] Progress Note - Hospitalist 01/06/23352 MR#: [id number] Acct: [id number] Name: STEVEN KOENIG Rep #:[id number] : 1955 67 From: Linda Luque MD PCP: Dr. Ulises Hermosillo MD Status:A DM IN Location: [place] [address] Hospitalist Note Preliminary respiratory culture with strep pneumo, Rocephin added. 01/06/23353 <Electronically signed by Linda Luque MD> Cosigner Signature (if applicable): CC: ~ Signed [facility] Work Phone: 1(693) 311-574602-25-[address] Sauer [facility] January 05, 2023 3:15pm Note Date/Time January 05, 2023 8:27am [facility] Medical Records Department [address] [place] [address] Progress Note - Hospitalist 01/05/23 0825 MR#: [id number] Acct: [id number] Name: STEVEN KOENIG Rep #:[id number] : 1955 67 From: Joel Sauer DO PCP: Dr. Ulises Hermosillo MD Status:A DM IN Location: [place] [address] Reason for Visit Reason for Visit: Diagnoses [...] 01/03/23 10:58 AG (Rec: 01/03/23 10:58 AG [id number]) Nutrition Malnutrition Evidence of Malnutrition Exists Yes [...] the . Charges/Coding Visit Charges Inpatient E&M: 51349 Subs Hosp L2 01/05/23 7187 <Electronically signed by Joel Sauer DO> Cosigner Signature (if applicable): CC: ~ Signed [facility] Work Phone: 1(354) 240-889102-24-[address] Sauer [facility] January 04, 2023 4:33pm Note Date/Time January 04, 2023 8:14am [facility] Medical Records Department [address] [place] [address] Progress Note - Hospitalist 01/04/23811 MR#: [id number] Acct: [id number] Name: STEVNE KOENIG Rep #:[id number] : 1955 67 From: Joel Sauer DO PCP: Dr. Ulises Hermosillo MD Status:A DM IN Location: [place] [address] Reason for Visit Reason for Visit: Diagnoses [...] 01/03/23 10:58 AG (Rec: 01/03/23 10:58 AG [id number]) Nutrition Malnutrition Evidence of Malnutrition Exists Yes [...] SCDs, Lovenox. Charges/Coding Visit Charges Inpatient E&M: 97351 Subs Hosp L2 01/04/23 1524 <Electronically signed by Joel Sauer DO> Cosigner Signature (if applicable): CC: ~ Signed ADDENDUM by Dr. Joel Sauer DO on 01/04/23 at 1633 Addendum Patient developed erythema over over face and upper chest. Not visualized elsewhere. Unclear if is actual drug reaction. We will discontinue the phenobarbital. 01/04/23 1633<Electronically signed by Joel Sauer DO> Cosigner Signature (if applicable): cc: ~* Signed [facility] Work Phone: 1(778) 249-319302-23-[address] Sauer [facility] January 03, 2023 3:30pm Note Date/Time January 03, 2023 8:33am [facility] Medical Records Department [address] [place] [address] [place] [address] Progress Note - Hospitalist 01/03/23828 MR#: [id number] Acct: [id number] Name: STEVEN KOENIG Rep #:[id number] : 1955 67 From: Joel Sauer DO PCP: Dr. Ulises Hermosillo MD Status:A DM IN Location: [place] [address] Reason for Visit Reason for Visit: Diagnoses [...] Clarity Clear, Urine pH 6.0, Ur Specific [place] 1.005, Urine Protein Negative, Urine Glucose (UA) [...] % (Auto) 50.1, Lymph % (Auto) 37.2, [place] % (Auto) 9.6, Eos % (Auto) 1.4, [...] 92.4 H, Lymph % (Auto) 5.4 L, [place] % (Auto) 0.9, Eos % (Auto) 0.0, [...] 21:10 EST Reading Location ID and State: [facility] / [place] , Service support , Physical Exam Const [...] SCDs, Lovenox. Charges/Coding Visit Charges Inpatient E&M: 33783 Subs Hosp L2 01/03/23 1530 <Electronically signed by Joel Sauer DO> Cosigner Signature (if applicable): CC: ~ Signed [facility] Work Phone: 1(833) 788-535402-22-2023 History and physical note Author Dr. Luque [facility] January 02, 2023 9:37pm Note Date/Time January 02, 2023 9:19pm [facility] Medical Records Department [address] [place] [address] History & Physical Exam 01/02/232135 MR#: [id number] Acct: [id number] Name: STEEVN KOENIG Rep #:[id number] : 1955 67 [...] abuse, Tobacco use who presents to the [facility] ED on 01/02/23 with history of [...] Clarity Clear, Urine pH 6.0, Ur Specific [place] 1.005, Urine Protein Negative, Urine Glucose (UA) [...] % (Auto) 50.1, Lymph % (Auto) 37.2, [place] % (Auto) 9.6, Eos % (Auto) 1.4, [...] 21:10 EST Reading Location ID and State: [address] [place] [address] , Service support , Assessment & Plan Assessment/Plan (1) Chest pain: (2) COPD exacerbation: (3) Desire for detoxification: PLAN: Plan The patient is a 67 y/o F w/ PMHx: COPD, HTN, HLD, Depression and Anxiety, EtOH abuse, Tobacco use who presents to the [facility] ED on 01/02/23 with history of [...] 76 minutes. Charges/Coding Visit Charges Inpatient E&M: 35934 Init Hosp L3 01/02/232136 <Electronically signed by Linda Luque MD> Cosigner Signature (if applicable): CC: Dr. Linda Luque MD; Dr. Ulises Hermosillo MD~ Signed [facility] Work Phone: 1([phone]) 392-475702-22-[address] Koroma [facility] January 02, 2023 9:25pm Note Date/Time January 02, 2023 6:55pm [facility] Medical Records Department [address] [place] [address] Emergency Department Summary 01/02/23 MR#: [id number] Acct: [id number] Name: STEVEN KOENIG Rep #:[id number] : [...] at around 10:00 she states she had a few beers. She last went through rehabilitation years ago, but feels like she needs detox and rehab today because she recently had her dog , and she lost her brother to arson and another relative to fentanyl overdose so she feels likeshe needs to get clean. PFSH PFSH Medical History Alcohol abuse Anxiety [...] 50 mg PO TID PRN PRN Anxiety 09/18/17 [History Last Taken Unknown] lisinopril 40 mg [...] % (Auto) 50.1 Lymph % (Auto) 37.2 [place] % (Auto) 9.6 Eos % (Auto) 1.4 [...] Clarity Clear Urine pH 6.0 Ur Specific [place] 1.005 Urine Protein Negative Urine Glucose (UA) [...] (Auto) Neut % (Auto) Lymph % (Auto) [place] % (Auto) Eos % (Auto) Baso % [...] Color Urine Clarity Urine pH Ur Specific [place] Urine Protein Urine Glucose (UA) Urine Ketones [...] 21:10 EST Reading Location ID and State: [facility] / [place] , Service support , Discharge Plan Dx/Rx/DC Orders Clinical Impression: Chronic obstructive lung disease, Alcohol intoxication, Desire for detoxification, Chest pain Disposition Disposition: Acute Care Hospital [facility] What to do if you have Problems For any increased pain, shortness of breath, bleeding, nausea or vomiting, chestpain, or any unexpected problems, contact your Primary Care Provider. Call [facility] ([phone]) or report to the closest Emergency Room. Call 911 if necessary. 01/02/232124 <Electronically signed by Miah Koroma MD> Cosigner Signature (if applicable): CC: Dr. Ulises Hermosillo MD ~ Signed [facility] Work Phone: 1(299) 868-342202-22-[address] Koroma [facility] January 02, 2023 9:25pm Note Date/Time January 02, 2023 6:55pm [facility] Medical Records Department [address] [place] [address] Emergency Department Summary 01/02/23 MR#: [id number] Acct: [id number] Name: STEVEN KOENIG Rep #:[id number] : [...] at around 10:00 she states she had a few beers. She last went through rehabilitation years ago, but feels like she needs detox and rehab today because she recently had her dog , and she lost her brother to arson and another relative to fentanyl overdose so she feels likeshe needs to get clean. PFSH PFSH Medical History Alcohol abuse Anxiety [...] tablet 25 mg PO BID BLOOD PRESSURE 03/24/17 [History Last Taken 02/21/18] paroxetine HCl 30 [...] % (Auto) 50.1 Lymph % (Auto) 37.2 [place] % (Auto) 9.6 Eos % (Auto) 1.4 [...] Clarity Clear Urine pH 6.0 Ur Specific [place] 1.005 Urine Protein Negative Urine Glucose (UA) [...] (Auto) Neut % (Auto) Lymph % (Auto) [place] % (Auto) Eos % (Auto) Baso % [...] Color Urine Clarity Urine pH Ur Specific [place] Urine Protein Urine Glucose (UA) Urine Ketones [...] Chest pain Disposition Disposition: Acute Care Hospital [facility] What to do if you have Problems For any increased pain, shortness of breath, bleeding, nausea or vomiting, chestpain, or any unexpected problems, contact your Primary Care Provider. Call [facility] ([phone]) or report to the closest Emergency Room. Call 911 if necessary. 01/02/232124 <Electronically signed by Miah Koroma MD> Cosigner Signature (if applicable): CC: Dr. Ulises Hermosillo MD ~ Signed [facility] Work Phone: [phone] 528-561502-21-2023 Miscellaneous Notes* Telephone Encounter - Diana KruseGIO jauregui - 01/01/2023 3:42 PM EST Behavioral Health Social Work Progress Note Patient identified for [facility] from: PCP Reason for referral: Resources Behavioral Health Resources: Substance abuse [facility] encounter type: Telephone Encounter Attempts to Outreach: 1 attempt Referral made: Psychology - External Psychology-External referral type: Alcohol/Drug Treatment Reason for external referral: Patient seeking longterm support, Patient needs services closer to home [...] look into for detoxification and substance abuse: [facility] [address] [place] [address] [address] [facility] [address] [place] [address] [address], [place] [id number] Patient states she may end up just going to [facility] if she can't find anywhere to go to assist as she really needs to detox. Advised to call these numbers and if additional assistance is needed to inform this SW. GIO Cardona January 01, 2023 documented in [facility]23 NoteHNO ID: [id number] Author: Oly Smith APRN.CNP Service: ? Author [...] HISTORY Diagnosis Date Acute pancreatitis 2010 [facility] Alcohol use disorder 01/18/2016 [facility] Anxiety 12/14/2015 Bipolar affective disorder, currently active ([facility]) 01/18/2016 Dr[facility] Chronic bronchitis ([facility]) 07/26/2016 Closed skull fracture ([facility]) 1994 [facility], [facility] Coronary artery disease DDD (degenerative disc disease), cervical Endometriosis 2007 Essential hypertension 12/14/2015 GERD (gastroesophageal reflux disease) 03/13/2019 History of colon polyps History of gastric ulcer 12/14/2015 HLD (hyperlipidemia) Injury of left facial nerve 1994 PAD (peripheral artery disease) ([facility]) 09/28/2019 Recurrent major depression in partial remission ([facility]) 12/14/2015 S/P drug eluting coronary stent [...] TOTAL FACIAL NERVE DECOMPRESSION AND/REPAIR Left 1989 [facility] ALLERGIES Patient has no known allergies. MEDICATIONS traZODone (DESYREL) 100 mg tablet Take 2 tablets by mouth daily at bedtime. xsppvhgwnul-toljvplcn-oczqdvii (TRELEGY ELLIPTA) 200-62.5-25 mcg inhalation powder Inhale [...] Cancer Sister 61 l (more content not included)...[facility]02-21-2023 NoteHNO ID: [id number] Author: RT Aziza(R) Service: ? Author Type: Jacquard Loom Fixer Type: Progress Notes Filed: 01/01/2023 1:02 PM [...] BY: RT Aziza(R) January 01, 2023 12:51 [facility]02-21-2023 Instructions* Patient Instructions* Oly Smith APRN.CNP [...] will start drinking again. documented in this encounterEast [facility]02-[facility]23 History of Present illness Narrative* Oly [...] HISTORY Diagnosis Date Acute pancreatitis 2010 Maynor Matthews Alcohol use disorder 01/18/2016 [facility] Anxiety 12/14/2015 Bipolar affective disorder, currently active ([facility]) 01/18/2016 Dr. Angie Jones, [facility] Chronic bronchitis ([facility]) 07/26/2016 Closed skull fracture ([facility]) 1994 [facility], [facility] Coronary artery disease DDD (degenerative disc disease), cervical Endometriosis 2007 Essential hypertension 12/14/2015 GERD (gastroesophageal reflux disease) 03/13/2019 History of colon polyps History of gastric ulcer 12/14/2015 HLD (hyperlipidemia) Injury of left facial nerve 1994 PAD (peripheral artery disease) ([facility]) 09/28/2019 Recurrent major depression in partial remission ([facility]) 12/14/2015 S/P drug eluting coronary stent [...] TOTAL FACIAL NERVE DECOMPRESSION &/REPAIR Left 1989 [facility] ALLERGIES Patient has no known allergies. MEDICATIONS traZODone (DESYREL) 100 mg tablet Take 2 tablets by mouth daily at bedtime. dzjhrlyjobo-yacbsselg-irsdqwoo (TRELEGY ELLIPTA) 200-62.5-25 mcg inhalation powder Inhale [...] to discuss inpatient rehab facility with social science teacher, referral placed Close follow-up in office in [...] care. Oly Smith APRN.CNP documented in this encounterEast [facility] Hospital02-12-2023 Hospital Discharge instructions Patient Education 12/23/2022 [...] your ankles gets worse Dizziness or weakness 1504-1528 [employer]. [address] [place] [address]. All rights reserved. This information is not intended as a substitute for professional medical care. Always follow [facility] professional's instructions. 12/23/2022 16:02:38 Anxiety Reaction Anxiety [...] relieved by rest and mild pain reliever 4699-0265 [employer]. [address] [place] [address], [place] [address]. All rights reserved. This information is not intended as a substitute for professional medical care. Always follow yourhealthcare professional's instructions. Follow Up Care 12/23/2022 13:42:18 With:ULISES HERMOSILLO MD Address: [address] [place] [address]- When:2-4 days Comments:Return to ED if symptoms worsen [facility] 02-12-2023 Note Discharge Instructions Thank you for allowing [facility] to assist you with your healthcare needs. [...] to ED if symptoms worsen Where: [address] [place] [address]- Allergies NKA Medications Please ask your [...] your ankles gets worse Dizziness or weakness [phone] [employer]. [address] [place] [address], [place] [address]. All rights reserved. This information is not [...] relieved by rest and mild pain reliever 4038-3648 [employer]. [address] [place] [address]. All rights reserved. This information is not intended as a substitute for professional medical care. Always follow yourhealthcare professional's instructions. Additional Information VACCINATE! IT SAVES LIVES! Members of the community who have not yet received the COVID-19 vaccine and would like to receive it can visit one of [facility] vaccine clinics. There are many vaccine clinic locations within the [facility]. For locations and available times, please visit [email or web address]. It is important to note that some COVID mobile vaccine clinics are held outdoors and may be canceled in rainy orstormy conditions. To learn more about pediatric vaccinations (ages 5-11), we invite you to visit the [facility] webpage. [email or web address] learn more about the COVID-19 vaccine, we invite you to visit the [employer] website for a list of frequently asked questions. [email or web address] [facility] Patient Portal Access Instructions: Stay connected with your healthcare team and access your personal medical information anytime with the [facility] Patient Portal. If you would like a full copy of your medical records please contact the [facility] Medical Records Department Saturday through Saturday between 8a.m. and 4:30p.m. Please follow the directions below to access the portal: 1.Access the email account you provided upon registration to the [facility].2.Look for an invitation email from [facility].3.Open the email and access the invitation link: Accept Invitation to [facility]4.Fill in the required randle to create your account. Sign into [email or web address] with your username and password that you [...] you will allow to register on the [facility] Patient Portal for access to your information. You can also access the [facility] Patient Portal on the [employer] larissa. Simply click on Health Records under Seesawta and then click on the [facility] logo. [...] Call your local pharmacy or go to http://bit.ly/1Y4Zo6q to find one close to you.3.Make use of household items: Use cat litter or old coffee grounds to dispose medications if other options arenot available. Mix your drugs with these household products, seal them in an airtight container andthrow it into the garbage. Call [facility]: [phone] to be sure your drugs can be [...] aware that I should contact my doctor. Patient/[employer] Signature: Date/Time: Relationship to Patient: Witness Name/Signature: Date/Time: [facility]23 Note ORIGINAL EXAMINATION: ONE XRAY VIEW OF [...] Sign Date: 12/23/2022 2:43:01 PM Ordering Provider: [facility]02-12-2023 Note ORIGINAL EXAMINATION: ONE XRAY VIEW OF [...] Sign Date: 12/23/2022 2:43:01 PM Ordering Provider: [facility]02-03-2023 Miscellaneous Notes* Telephone Encounter - Jasmine Ramos LPN - 12/14/2022 11:42 AM EST Last seen pcp 09/05/22 Next appt 01/01/23. * Telephone Encounter - Aurea Fitzpatrick [facility] [place]14/[place]22 11:36 AM EST Patient has [...] sent to the pharmacy. Call patient at [phone] (cell) [facility] documented in this encounterEast [facility] City Hospital01-16-2023 NoteHNO ID: [id number] Author: Isauro Asher MD Service: ? Author Type: Physician Type: Progress Notes Filed: 11/26/2022 2:01 PM Note Text: . [facility] [place] Note Patient name: Steven Koenig PCP: Ulises Hermosillo MD CC: Hemoptysis HPI: Steven Koenig 67 year old female current heavy smoker, over 100 pack years with PMH significant for bipolar affective disorder, h/o alcohol abuse, GERD, PAD, HLD, CAD s/p stent, severe COPD (FEV1 0.83 L 36%), oxygen dependence, previously following in [facility], [place] to [place]. Recent admission at [facility] in [place] for AECOPD. CXR reported as normal. Discharged [...] No chest pain or current cough. DME: [facility] DATA: PFT 05/2022: Review of spirometry shows severe obstruction without significant improvement post bronchodilators and moderate reduction in diffusing capacity Labs: Laboratory testing at [facility], normal CBC and platelet count. Negative COVID and influenza Imaging / Diagnostic Studies: DATE OF EXAM: Jul 26 2022 4:27PM [facility] 0562 - CT LUNG [...] HISTORY Diagnosis Date Acute pancreatitis 2010 Maynor Matthews Alcohol use disorder 01/18/2016 [facility] Anxiety 12/14/2015 Bipolar affective disorder, currently active ([facility]) 01/18/2016 Dr[facility] Chronic bronchitis ([facility]) 07/26/2016 Closed skull fracture ([facility]) 1994 [facility], [facility] Coronary artery disease DDD (degenerative disc disease), cervical Endometriosis 2007 Essential hypertension 12/14/2015 GERD (gastroesophageal reflux disease) 03/13/2019 History of colon polyps History of gastric ulcer 12/14/2015 HLD (hyperlipidemia) Injury of left facial nerve 1994 PAD (peripheral artery disease) ([facility]) 09/28/2019 Recurrent major depression in partial remission ([facility]) 12/14/2015 S/P drug eluting coronary stent placement 08/25/2021 LAD and Dg2 Spinal stenosis ALLERGIES No Known Allergies albuterol HFA (VENTOLIN HFA) 90 mcg/actuation inhaler Inhale 2 Puffs as instructed every 6 hours as needed for wheezing/shortness of breath. cqpjgtbannx-qoeuutpcc-llsopypm (TRELEGY ELLIPTA) 200-62.5-25 mcg inhalation powder Inhale [...] RELIEF) 0.2 % drop (more content not included)...[facility] History of Present illness Narrative* Isauro Asher MD - 11/26/2022 12:45 PM EST Images from the original note were not included. . [facility] [place] Note Patient name: Steven Koenig PCP: Ulises Hermosillo MD CC: Hemoptysis HPI: Steven Koenig 67 year old female current heavy smoker, over 100 pack years with PMH significant for bipolar affective disorder, h/o alcohol abuse, GERD, PAD, HLD, CAD s/p stent, severe COPD (FEV1 0.83 L 36%), oxygen dependence, previously following in [facility]. Recent admission at [facility] in [place] for AECOPD. CXR reported as normal. Discharged [...] No chest pain or current cough. DME: [facility] DATA: PFT 05/2022: Review of spirometry shows severe obstruction without significant improvement post bronchodilators and moderate reduction in diffusing capacity Labs: Laboratory testing at [facility], normal CBC and platelet count. Negative COVID and influenza Imaging / Diagnostic Studies: DATE OF EXAM: Jul 26 2022 4:27PM [facility] 0562 - CT LUNG [...] HISTORY Diagnosis Date Acute pancreatitis 2010 Maynor Matthews Alcohol use disorder 01/18/2016 Dr. Angie Jones, [facility] Anxiety 12/14/2015 Bipolar affective disorder, currently active ([facility]) 01/18/2016 Dr[facility] Chronic bronchitis ([facility]) 07/26/2016 Closed skull fracture ([facility]) 1994 [facility] Coronary artery disease DDD (degenerative disc disease), cervical Endometriosis 2007 Essential hypertension 12/14/2015 GERD (gastroesophageal reflux disease) 03/13/2019 History of colon polyps History of gastric ulcer 12/14/2015 HLD (hyperlipidemia) Injury of left facial nerve 1994 PAD (peripheral artery disease) ([facility]) 09/28/2019 Recurrent major depression in partial remission ([facility]) 12/14/2015 S/P drug eluting coronary stent placement 08/25/2021 LAD and Dg2 Spinal stenosis ALLERGIES No Known Allergies albuterol HFA (VENTOLIN HFA) 90 mcg/actuation inhaler Inhale 2 Puffs as instructed every 6 hours asneeded for wheezing/shortness of breath. llcsuzqdxpg-rvdshykvp-csuqsuql (TRELEGY ELLIPTA) 200-62.5-25 mcg inhalation powder Inhale [...] TOTAL FACIAL NERVE DECOMPRESSION &/REPAIR Left 1989 [facility] PMH, Social history, family history and [...] cessation strongly encouraged Isauro Asher MD [facility] [place] documented in this encounterEast [facility] Hospital12-16-2022 Hospital Discharge instructions Patient Education 10/26/2022 [...] your ankles gets worse Dizziness or weakness 4099-7189 [employer]. [address] [place] [address]. All rights reserved. This information is not intended as a substitute for professional medical care. Always follow yourhealthcare professional's instructions. Follow Up Care 10/26/2022 16:18:34 With:Go to emergency room if symptoms worsen Address:Unknown When:2-4 days With:ULISES HERMOSILLO MD Address: [address] [place] [address]- When:2-[address] [facility] 12-16-2022 Note Discharge Instructions Thank you for allowing [facility] to assist you with your healthcare needs. [...] MD When Within 2-4 days Where: [address] [place] [address]- Allergies NKA Medications Please ask [...] Medication Leaflets budesonide and formoterol (inhalation) (dunia matutee and mariluz marcos) Symbicort What is the [...] may report side effects to FDA at 2-708-GJD-6024. What other drugs will affect budesonide and formoterol? Sometimes it is not safe to use certain medications at the same time. Some drugs can affect your blood levels of other drugs you take, which may increase side effects or make the medications less effective. Many drugs can affect budesonide and formoterol. This includes prescription and frpu-kne-zvjupqj medicines, vitamins, and herbal products. Not all [...] to ensure that the information provided by [employer]. ('[employer]') is accurate, up-to-date, and complete, but no guarantee is made to that effect. Drug information contained herein may be time sensitive. [employer] information has been compiled for use by healthcare practitioners and consumers in the [place] and therefore [employer] does not warrant that uses outside of the [place] are appropriate, unless specifically indicated otherwise. [employer] drug information does not endorse drugs, diagnose patients or recommend therapy. [employer] drug information isan informational resource designed to [...] effective or appropriate for any given patient. [employer] does not assume any responsibility for any aspect of healthcare administered with the aid of information [employer] provides. The information contained herein is not intended to cover all possible uses, directions, precautions, warnings, drug interactions, allergic reactions, or adverse effects. If you have questions about the drugs you are taking, check with your doctor, nurse or pharmacist. Copyright 0316-1482 [employer]. Version: 9.02. Revision Date: 07/08/2019. prednisone (PRED [...] may report side effects to FDA at 0-690-ILI-7358. What other drugs will affect prednisone? Sometimes [...] may affect prednisone. This includes prescription and egjq-alz-gcxyjew medicines, vitamins, and herbal products. Not all [...] to ensure that the information provided by [employer]. [employer]') is accurate, up-to-date, and complete, but no guarantee is made to that effect. Drug information contained herein may be time sensitive. [employer] information has been compiled for use by healthcare practitioners and consumers in the [place] and therefore [employer] does not warrant that uses outside of the [place] are appropriate, unless specifically indicated otherwise. [employer] drug information does not endorse drugs, diagnose patients or recommend therapy. [employer] drug information isan informational resource designed to [...] effective or appropriate for any given patient. [employer] does not assume any responsibility for any aspect of healthcare administered with the aid of information [employer] provides. The information contained herein is not intended to cover all possible uses, directions, precautions, warnings, drug interactions, allergic reactions, or adverse effects. If you have questions about the drugs you are taking, check with your doctor, nurse or pharmacist. Copyright 1225-2955 [employer]. Version: 10.. Revision Date: 02/05/2019. doxycycline (oral/injection) [...] or life-threatening conditions such as anthrax or [place] spotted fever. The benefit of treating a [...] may report side effects to FDA at 6-753-PCU-2975. What other drugs will affect doxycycline? Sometimes it is not safe to use certain medications at the same time. Some drugs can affect your blood levels of other drugs you take, which may increase side effects or make the medications less effective. Other drugs may affect doxycycline, including prescription and qhcn-oyv-vcqgbiz medicines, vitamins, and herbal products. Tell your [...] to ensure that the information provided by [employer]. [employer]') is accurate, up-to-date, and complete, but no guarantee is made to that effect. Drug information contained herein may be time sensitive. [employer] information has been compiled for use by healthcare practitioners and consumers in the [place] and therefore [employer] does not warrant that uses outside of the [place] are appropriate, unless specifically indicated otherwise. [employer] drug information does not endorse drugs, diagnose patients or recommend therapy. [employer] drug information isan informational resource designed to [...] effective or appropriate for any given patient. [employer] does not assume any responsibility for any aspect of healthcare administered with the aid of information [employer] provides. The information contained herein is not intended to cover all possible uses, directions, precautions, warnings, drug interactions, allergic reactions, or adverse effects. If you have questions about the drugs you are taking, check with your doctor, nurse or pharmacist. Copyright 4978-7377 [employer]. Version: 21.04. Revision Date: 09/14/2020. Education Materials [...] your ankles gets worse Dizziness or weakness [phone] [employer]. [address] [place] [address]. All rights reserved. This information is not intended as a substitute for professional medical care. Always follow yourhealthcare professional's instructions. Additional Information VACCINATE! IT SAVES LIVES! Members of the community who have not yet received the COVID-19 vaccine and would like to receive it can visit one of [facility] vaccine clinics. There are many vaccine clinic locations within the [facility]. For locations and available times, please visit [email or web address]. It is important to note that some COVID mobile vaccine clinics are held outdoors and may be canceled in rainy orstormy conditions. To learn more about pediatric vaccinations (ages 5-11), we invite you to visit the [facility] webpage. [email or web address] learn more about the COVID-19 vaccine, we invite you to visit the [facility] website for a list of frequently asked questions. [email or web address] [facility] Patient Portal Access Instructions: Stay connected with your healthcare team and access your personal medical information anytime with the [facility] Patient Portal. If you would like a full copy of your medical records please contact the [facility] Medical Records Department Saturday through Saturday between 8a.m. and 4:30p.m. Please follow the directions below to access the portal: 1.Access the email account you provided upon registration to the [facility].2.Look for an invitation email from [facility].3.Open the email and access the invitation link: Accept Invitation to [facility]4.Fill in the required randle to create your account. Sign into [email or web address] with your username and password that you [...] you will allow to register on the [facility] Patient Portal for access to your information. You can also access the [facility] Patient Portal on the Zappedy larissa. Simply click on Health Records under FlameStower and then click on the [facility] logo. [...] Call your local pharmacy or go to [email or web address] to find one close to you.3.Make use of household items: Use cat litter or old coffee grounds to dispose medications if other options arenot available. Mix your drugs with these household products, seal them in an airtight container andthrow it into the garbage. Call [facility]: [phone] to be sure your drugs can be [...] aware that I should contact my doctor. Patient/[employer] Signature: (more content not included)... [facility]12-16-2022 Note ORIGINAL EXAMINATION: ONE XRAY [...] 10/26/2022 7:06:29 PM Ordering Provider: BRIAN TRINIDAD [facility]12-16-2022 Note ORIGINAL EXAMINATION: ONE XRAY [...] evidence of acute cardiopulmonary process. Interpreted by: Kyela Mckeon MD Preliminary Report By: Keyla Mckeon MD Electronically signed By Keyla Mckeon MD Dictated Date: 10/26/2022 7:05:14 PM Prelim Date: 10/26/2022 7:06:29 PM Sign Date: 10/26/2022 7:06:29 PM Ordering Provider: [facility]12-16-2022 SARS-CoV-2 (COVID-19) RNA IVANA+probe Ql (Nph)Negative *NA* (10/26/22 5:52 PM)AO Auto Urine [id number] History of Present illness Narrative* Doron Self DO - 10/02/2022 10:10 AM EST This office note has been dictated. Doron Self DO documented in [facility] encounter[facility]22 Miscellaneous Notes* Telephone Encounter - Linda [...] Thank you! Linda Olea documented in this encounterEast [facility] Hospital11-09-2022 Miscellaneous Notes* Telephone Encounter - Nevin Horne Pss - 09/19/2022 10:02 AM EST Patient called to reschedule damir lab testing from 07/13. Unable to schedule, stated 09/11. Please place new orders and advise patient for scheduling. documented in this encounterEast [facility] City Hospital10-26-2022 History of Present illness Narrative* Ulises [...] Remission (Hcc) Bipolar Affective Disorder, Currently Active (Hcc) History of Alcohol Abuse Chronic bronchitis (HCC) Spinal Stenosis, Lumbar Region Without Neurogenic Claudication Radiculopathy, Lumbar Region Smoker Gerd (Gastroesophageal Reflux Disease) Seasonal Allergies Pad (Peripheral Artery Disease) ([facility]) Anxiety and Depression Prediabetes Chest Pain Other Chest Pain Stenosis of Carotid Artery Mixed Hyperlipidemia Abnormal Stress Test Dyspnea On Exertion Coronary Artery Disease Involving [place] Coronary Artery of [place] Heart Without Angina Pectoris Lung Nodule Current [...] 2 tablets by mouth daily at bedtime. rkzbulesyfy-nunqpofhf-rdvzfwkl (TRELEGY ELLIPTA) 200-62.5-25 mcg inhalation powder Inhale [...] control Ulises Hermosillo MD documented in this encounterEast [facility] Hospital10-26-2022 Miscellaneous Notes* Telephone Encounter - Nena [...] No difficulty with drinking. Protocols used: Mouth Opop-VRUWW-DQ documented in this encounterEast Liverpool City Hospital10-21-2022 Instructions* Patient Instructions* Oly Smith APRN.CNP - 08/31/2022 1:46 PM EDT Increase venlafaxine to 225 mg, take 150 mg cap with 75 mg cap to equal 225 mg. Take lorazepam as needed. Please use sparingly, no refills. 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 She on Plavix and Imdur. She stopped taking ASA because she takes Excedrin a lot and thought it was the same thing. Chronic bronchitis (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 Last appointment in May. Symbicort was stopped and she was started on Trelegy. She reports chronic cough, SOB and wheezing are about the same. Also has home oxygen for as needed use. REVIEW OF SYSTEMS See HPI PAST MEDICAL HISTORY Diagnosis Date Acute pancreatitis 2010 [facility] Alcohol use disorder [facility]/18[facility]2016 [facility] Anxiety 12/14/2015 Bipolar affective disorder, currently active ([facility]) 01/18/2016 Dr. Anige Jones, [facility] Chronic bronchitis ([facility]) 07/26/2016 Closed skull fracture ([facility]) 1994 [facility], [facility] Coronary artery disease DDD (degenerative disc disease), cervical Endometriosis 2007 Essential hypertension 12/14/2015 GERD (gastroesophageal reflux disease) 03/13/2019 History of colon polyps History of gastric ulcer 12/14/2015 HLD (hyperlipidemia) Injury of left facial nerve 1994 PAD (peripheral artery disease) ([facility]) 09/28/2019 Recurrent major depression in partial remission ([facility]) 12/14/2015 S/P drug eluting coronary stent [...] TOTAL FACIAL NERVE DECOMPRESSION &/REPAIR Left 1989 [facility] ALL[facility]GIES Patient has no known allergies. MEDICATIONS traZODone (DESYREL) 100 mg tablet^Take 2 tablets by mouth daily at bedtime.^Disp: 60 tablet^Rfl: 5 kjtjvtejydt-jnvpsimfz-pzhxfnnc (TRELEGY ELLIPTA) 200-62.5-25 mcg inhalation powder^Inhale 1 [...] suspiciousactivity was identified. 08/31/2022 by Oly Smith APRN.SUPERVISOR MOLD YARD 2. Allergic conjunctivitis of both eyes - [...] MG TABLET 5. Coronary artery disease involving [place] coronary artery of [place] heart without angina pectoris- ICD9: 414.01, ICD10: [...] CT in July. Follow-up with lung cancer clinical lab specialist as advised 10. Screening for osteoporosis - ICD9: V82.81, ICD10: Z13.820 - DXA-AXIAL SKELETON 11. Asymptomatic menopause - ICD9: V49.81, ICD10: Z78.0 - DXA-AXIAL SKELETON Prescription instructions reviewed with patient as applicable. Potential red flag symptoms discussed with the patient. Reviewed appropriate action plan to take if red flag symptoms occur. Patient agreeable to treatment plan. Oly Smith APRN.CNP documented in this encounterEast [facility] Hospital10-06-2022 Miscellaneous Notes* Telephone Encounter - Ulises [...] to attend he can contact them at [phone] Option 3 to arrange. Nena Dozier RN documented in this encounterEast [facility] Hospital09-22-2022 Miscellaneous Notes* Telephone Encounter - Nevin Smith - 08/02/2022 12:39 PM EDT Please call patient to schedule testing prior to appt on 08/14/2022 Thank you documented in this encounterEast [facility] City Hospital09-20-2022 Instructions* Patient Instructions* Karly Garcia APRN.CNP [...] please feel free to contact me at [phone]. Karly Garcia APRN.CNP documented in this encounterEast [facility] City Hospital09-20-2022 History of Present illness Narrative* Karly Garcia APRN.CNP - 07/31/2022 2:30 PM EDT Images from [...] a year that has been present for years. Patient does not have any significant unintentional weight loss, appetite is good. Is supposed to wear 2L NC at all times but only uses it at home as she does not have a small portable O2 machine due to cost. Current respiratory medication includesTrelegy daily and Symbicort daily and prn albuterol- using 2x daily. Per her last OV with her chief building inspector, Symbicort was advised to be discontinued as Trelegy was added on. Activity: Does light house work but has to stop in between chores to catch her breath. Gets SOB with showering or with walking from her bedroom to her kitchen. The patient does not require assistancewith normal activities of daily living. Modified Medical Research Afognak Dyspnea Scale (MMRC) I stop for breath after walking about 100 yards or after a few minutes on level ground 3 History of respiratory exposures include: Occupational: None Environmental: Second had smoke exposure as a child Father and mother had lung cancer Past Medical History: PAST MEDICAL HISTORY Diagnosis Date Acute pancreatitis 2010 [facility] Alcohol use disorder 01/18[facility]2016 [facility] Anxiety 12/14/2015 Bipolar affective disorder, currently active ([facility]) 01/18/2016 [facility] Chronic bronchitis ([facility]) 07/26/2016 Closed skull fracture ([facility]) 1994 [facility] Coronary artery disease DDD (degenerative disc disease), cervical Endometriosis 2007 Essential hypertension 12/14/2015 GERD (gastroesophageal reflux disease) 03/13/2019 History of colon polyps History of gastric ulcer 12/14/2015 HLD (hyperlipidemia) Injury of left facial nerve 1994 PAD (peripheral artery disease) ([facility]) 09/28/2019 Recurrent major depression in partial remission ([facility]) 12/14/2015 S/P drug eluting coronary stent [...] TOTAL FACIAL NERVE DECOMPRESSION &/REPAIR Left 1989 [facility] Family Hx: FAMILY HISTORY Problem Relation [...] which included preparing to see the patient, rznf-ns-hgme patient care, completing clinical documentation, obtaining and/or reviewing separately obtained history, performing a medically appropriate examination, counseling and educating the pat ient/family/caregiver, and communicating results to the patient/family/caregiver. Associated attestation - Nicole Kenny APRN.CNP - 07/31/2022 4:53 PM EDT TEACHING PROVIDER (Physician/PA/PLASTICS PRODUCTION MACHINE OPERATOR) NOTE OF PERSONAL INVOLVEMENT IN CARE: I have personally seen and examined the patient and performed the medical decision-making components. I have reviewed the Karly Loya 's documentation and verified the findings in the note as written. Any additions or changes are noted in bold/italics. Signature: Nicole Kenny APRN.CNP Date: 07/31/2022 Time: 4:53 PM documented in this encounterEast [facility] City Hospital09-15-2022 NoteHNO ID: [id number] Author: YASSINE Hatch Service: Radiology Author Type: [...] Hatch July 26, 2022 4:24 PMUniversity [facility]als [facility]hu[facility] [id number] Miscellaneous Notes* Telephone Encounter - Saranya Link [...] daily at bedtime. Authorizing Provider: DAT RODNEY hxpoxpllxfi-dbytdxmkm-fzhftahz (TRELEGY ELLIPTA) 200-62.5-25 mcg inhalation powder 60 [...] pcp 05/11/22. Next appt is 08/13/22 with SHAPE BRICK MOLDER. * Telephone Encounter - Arlen Avalos Pss - 07/20/2022 11:25 AM EDT Patient has been identified by Yesname and date of : Requested Prescriptions Pending Prescriptions Disp Refills traZODone (DESYREL) 100 mg tablet 60 tablet 0 Sig: Take 2 tablets by mouth daily at bedtime. brcfcnopjvd-jeovuxwta-vbgqpanj (TRELEGY ELLIPTA) 200-62.5-25 mcg inhalation powder 60 Each 11 Sig: Inhale 1 Puff as instructed once daily. venlafaxine ER (EFFEXOR XR) 150 mg 24 hr capsule 90 capsule 0 Sig: Take 1 capsule by mouth once daily. RX INSTRUCTIONS: Patient aware RX will be sent to pharmacy. No need to notify patient. Arlen Avalos Pss documented in this encounterEast Liverpool City Hospital09-06-2022 Miscellaneous Notes* Telephone Encounter - Hyacinth Austin - 07/17/2022 2:02 PM EDT Left message to advise appointment with Dr Self has been moved up to August 4ht @ 10:15 in the [place] . * Telephone Encounter - Maritza De Los Santos - 07/13/2022 3:52 PM EDT Patient called back in regard to message left for her. Informed her that she needs to complete testing first before she has appt with Dr. Self. She verbalized understanding. I informed her of when her testing is on 07/26/2022 in [place] and rescheduled her appt with Dr. Self in [place] on 09/11/2022 since that was the soonest available she could go to. She's been added to the waitlist for this appt as well. Thank you. Maritza De Los Santos * Telephone Encounter - Nevin Smith - 07/13/2022 3:14 PM EDT Called patient to inform she needs testing prior to appt 07/17/22 She reports she is having significant pain in her right leg. The soonest testing appt [place] has available is 07/25/22. Patient is tentatively scheduled on thatday. Appt needs to be rescheduled. Discussed with patient she could come for the visit on 07/17/22 howeverthe testing is necessary to see if there is anything new going on since her last scan. Left patient a voicemail with this information, advised she could call the office for other appt options in [place]. documented in this encounterEast [facility] City Hospital08-29-2022 Procedure note* ASHLEY Cage - 07/09/2022 3:31 [...] walker used for stability. documented in this encounterEast Liverpool City Hospital08-29-2022 History of Present illness Narrative* ASHLEY Cage - 07/09/2022 3:29 PM EDT PULM FUNCTION SMARTBLOCK: Provider: Margaret Kasper MD Assisting Tech: ASHLEY Cage Oximetry - Ambulation: 1 documented in this encounterEast Liverpool City Hospital08-26-2022 Miscellaneous Notes* Telephone Encounter - Margaret Kasper MD - 07/06/2022 11:29 AM EDT Order for oximetry documented in this encounterEast Liverpool City Hospital08-04-2022 Miscellaneous Notes* Telephone Encounter - Irena Cantor [...] to pharmacy. No need to notify patient. Cailni Austin documented in this encounterEast Liverpool City Hospital07-27-2022 History of Present illness Narrative* Margaret [...] year old female, Ht 162.1 cm (5' 3.82) BMI 22.07 kg/m2 with a PMH significant for current everyday smoking, history of asthma since teenage, COPD, recently discharged from [facility] in [place] where she was treated for COPD exacerbation [...] by inhalers Recent hospital admissions: [facility] in [place] Medications: Symbicort, albuterol Most recent Radiology Most [...] No significant exposure Silica: No significant exposure [place]: No significant exposure Mold: No significant exposure Hot tub: No significant exposure Fumes: No significant exposure Metal dust: No significant exposure Beryllium: No significant exposure Dust: No significant exposure Medications: No relevant exposure for interstitial lung diseases PAST MEDICAL HISTORY Diagnosis Date Acute pancreatitis 2010 [facility] Alcohol use disorder 01/18/2016 [facility] Anxiety 12/14/2015 Bipolar affective disorder, currently active ([facility]) 01/18/2016 [facility] Chronic bronchitis ([facility]) 07/26/2016 Closed skull fracture ([facility]) 1994 [facility], [facility] Coronary artery disease DDD (degenerative disc disease), cervical Endometriosis 2007 Essential hypertension 12/14/2015 GERD (gastroesophageal reflux disease) 03/13/2019 History of colon polyps History of gastric ulcer 12/14/2015 HLD (hyperlipidemia) Injury of left facial nerve 1994 PAD (peripheral artery disease) ([facility]) 09/28/2019 Recurrent major depression in partial remission ([facility]) 12/14/2015 S/P drug eluting coronary stent [...] TOTAL FACIAL NERVE DECOMPRESSION &/REPAIR Left 1989 [facility] FAMILY HISTORY Problem Relation Age of [...] Take 1 tablet by mouth once daily. dboravbmeix-kcoaxhaaw-enygajwy (TRELEGY ELLIPTA) 200-62.5-25 mcg inhalation powder Inhale [...] RRR without murmur, gallop, or rubs. No ectopy, normal peripheral pulses, no peripheral edema Abdomen: [...] 400 QTC Calculation (Bazett) 450 Calculated P [place] 82 Calculated R [place] 65 Calculated T [place] 69 Impression NORMAL SINUS RHYTHM NORMAL ECG Confirmed by DYLAN ROTH M.D. ([id number]) on 10/23/2021 11:14:32 AM Recent Results (from the past 87660 hour(s)) ECHO Collection Time: 05/21/22 3:26 PM [...] half of this for disease counseling. Margaret Kasper MD Staff, Respiratory [place] [facility] CC: MD Zoya Jameson Maria Sheyne, * documented in this encounterEast Liverpool City Hospital07-27-2022 History of Present illness Narrative* Paco Miguel RRT - 06/06/2022 9:47 AM EDT PULM FUNCTION SMARTBLOCK: Provider: Margaret Kasper MD Assisting Tech: Paco Miguel RRT Spirometry w/BD: 1 DLCO: 1 documented in this encounterEast Liverpool City Hospital07-25-2022 Miscellaneous Notes* Telephone Encounter - Ranulfo Blackman Ma - 06/04/2022 12:50 PM EDT New order printed and faxed. Ranulfo Blackman Ma * Telephone Encounter - Oly Smith APRN.CNP - 06/04/2022 11:45 AM EDT See phone note from 05/31, this was faxed and then re faxed on 06/04 Oly Smith APRN.CNP * Telephone Encounter - Jaylyn Caceres RN - 06/04/2022 10:07 AM EDT [facility] orders for the Aerochamber spacer, electronically signed by Radio Program Checker. States she cannot accept this. Needs an actual prescription with name, addressand signature of provider. Please send actual prescription. Fax number [phone]. documented in this encounterEast Liverpool City Hospital07-22-2022 Miscellaneous Notes* Telephone Encounter - Ranulfo [...] be sent for inhaler spacer? Pharmacy is [facility]. See Message below in regards to portable oxygen tank. Please review and advise, Christina Franco RN * Telephone Encounter - Christina Franco RN - 05/31/2022 11:07 AM EDT Patient calls and is asking if provider can write orders for patient to have a smaller portable oxygen tank so it is easier for her to go places. She gets current supplies from [facility]. Please review and advise, Christina Franco RN documented in this encounterEast Liverpool City Hospital07-20-2022 Miscellaneous Notes* Addendum Note - Nicole Kenny APRN.LINDA - 05/30/2022 9:06 AM EDT Addended by: NICOLE KENNY on: 05/30/2022 09:06 AM Modules accepted: Orders documented in this encounterEast Liverpool City Hospital07-19-2022 Miscellaneous Notes* Telephone Encounter - Tracy Alan LPN - 05/29/2022 7:04 AM EDT Patient's request for medication is as follows: Pending Prescriptions Disp Refills AMLODIPINE 10 MG TABLET 90 tablet 3 Sig: TAKE 1 TABLET BY MOUTH EVERY DAY BECKY: Yes Last seen 12/04/2021 in [place]. Follow up scheduled for 11/19/2022. Prescription(s) as above. Please process accordingly. Tracy Alan LPN documented in this encounterEast Liverpool City Hospital07-15-2022 Miscellaneous Notes* Telephone Encounter - Ranulfo [...] to the pharmacy. Please call patient at: [phone]. Telma Austin documented in this encounterEast Liverpool City Hospital07-14-2022 Miscellaneous Notes* Telephone Encounter - Manuela [...] valve disease. Thank you! documented in this encounterEast Liverpool City Hospital07-12-2022 Miscellaneous Notes* Result QuickNote - Tracy Ramires APRN.CNP - 05/22/2022 7:41 AM EDT Please call patient and notify her echocardiogram reveals stable LV function and no significant valve disease. Thank you! documented in this encounterEast Liverpool City Hospital07-01-2022 Instructions* Patient Instructions* Ulises Hermosillo MD - 05/11/2022 2:14 PM EDT FASTING BLOOD WORK IN 3 MONTHS. documented in this encounterEast Liverpool City Hospital07-01-2022 History of Present illness Narrative* Ulises [...] Hypertension Recurrent Major Depression in Partial Remission ([facility]) Bipolar Affective Disorder, Currently Active ([facility]) History of Alcohol Abuse Chronic bronchitis ([facility]) Spinal Stenosis, Lumbar Region Without Neurogenic Claudication Radiculopathy, Lumbar Region Smoker Gerd (Gastroesophageal Reflux Disease) Seasonal Allergies Pad (Peripheral Artery Disease) ([facility]) Anxiety and Depression Prediabetes Chest Pain Other Chest Pain Stenosis of Carotid Artery Mixed Hyperlipidemia Abnormal Stress Test Dyspnea On Exertion Coronary Artery Disease Involving [place] Coronary Artery of [place] Heart Without Angina Pectoris Social History Tobacco [...] BASIC Ulises Hermosillo MD documented in this encounterEast Liverpool City Hospital06-27-2022 Miscellaneous Notes* Telephone Encounter - Ranulfo Yehuda Granados - 05/07/2022 3:54 PM EDT MURTAZA: 10/19/2021 Last refill: 11/21/2021 QTY: 60 Refills: 5 Patient's request for medication is as follows: Pending Prescriptions Disp Refills TRAZODONE 100 MG TABLET 60 tablet 5 Sig: Take 2 tablets by mouth daily at bedtime. BECKY: No Please approve the above prescription(s) to electronically send to pharmacy. Ranulfo Taverasas Zhen * Telephone Encounter - Luci Austin - 05/07/2022 8:58 AM EDT Patient has [...] notify patient. Luci Austin documented in this encounterEast Liverpool City Hospital06-25-2022 Hospital Discharge instructions Patient Education 05/05/2022 [...] Follow these instructions at home: Medicines Take wryh-kyk-vzcsocu and prescription medicines (inhaled or pills) only [...] 08/07/2006 Document Revised: 10/10/2018 Document Reviewed: 12/02/2017 [employer] Patient Education 2020 [employer]. Follow Up Care 05/02/2022 09:30:28 With:[facility] Address: When: Unknown Comments:[facility] will provide your home oxygen and equipment. Call them when you arrive home and they will deliver your oxygen concentrator to you. Their number is [phone]. With:ULISES HERMOSILLO MD Address: [address] [place] [address]- When:05/11/2022 13:40:00 Comments:The appointment on 05/07 has been moved to 05/11 @1:40 P.M to be with Dr. Hermosillo [facility] 06-22-2022 Evaluation + Plan noteExtracted from: Title:History and Physical Author:SHATNELL SHELLEY MD Date:05/02/22 Acute hypoxic respiratory fa [...] confirmed cardiac medications in addition to Plavix. [facility] 06-22-2022 SARS-CoV-2 (COVID-19) RNA IVANA+probe Ql (Nph) Negative (05/02/22 4:25 AM)AO Auto Urine [id number] Instructions* Patient Instructions* Tracy Ramires APRN.SUPERVISOR MOLD YARD - 04/30/2022 3:57 PM EDT Images from [...] the health of your heart. Developed by [employer]. Published by [employer]. Copyright 2014 [employer] and/or one of its subsidiaries. All rights reserved. documented in this encounterEast Liverpool City Hospital06-20-2022 History of Present illness Narrative* Tracy [...] HISTORY Diagnosis Date Acute pancreatitis 2010 Maynor Matthews Alcohol use disorder 01/18/2016 [facility] Anxiety 12/14/2015 Bipolar affective disorder, currently active ([facility]) 01/18/2016 Dr[facility] Angie [facility] Chronic bronchitis ([facility]) 07/26/2016 Closed skull fracture ([facility]) 1994 [facility], [facility] Coronary artery disease DDD (degenerative disc disease), cervical Endometriosis 2007 Essential hypertension 12/14/2015 GERD (gastroesophageal reflux disease) 03/13/2019 History of colon polyps History of gastric ulcer 12/14/2015 HLD (hyperlipidemia) Injury of left facial nerve 1994 PAD (peripheral artery disease) ([facility]) 09/28/2019 Recurrent major depression in partial remission ([facility]) 12/14/2015 S/P drug eluting coronary stent [...] TOTAL FACIAL NERVE DECOMPRESSION &/REPAIR Left 1989 [facility] HISTORY Problem Relation Age of [...] injection (DEFINITY) INTRAVENOUS DIRECTED PRN Tracy Ramires, PLASTICS PRODUCTION MACHINE OPERATOR.SUPERVISOR MOLD YARD sodium chloride 0.9 % (flush) 10 mL (BD POSIFLUSH) 10 mL INTRAVENOUS DIRECTED PRN Tracy E Sima, PLASTICS PRODUCTION MACHINE OPERATOR.SUPERVISOR MOLD YARD perflutren lipid microspheres 1.3 mL in NaCl (PF) 0.9% 10 mL injection (DEFINITY) INTRAVENOUS DIRECTED PRN Tracy E Sima, PLASTICS PRODUCTION MACHINE OPERATOR.SUPERVISOR MOLD YARD sodium chloride 0.9 % (flush) 10 mL (BD POSIFLUSH) 10 mL INTRAVENOUS DIRECTED PRN Tracy E Sima, PLASTICS PRODUCTION MACHINE OPERATOR.SUPERVISOR MOLD YARD Review of Systems Constitutional: Negative for chills, [...] LAD portion of the stent 3.7mm, with latter day of blood flow, no residual stenosis. Assessment [...] 30, 2022, 3:36 PM documented [facility] Miscellaneous Notes* Telephone Encounter - Jasmine Ramos LPN - 04/03/2022 10:00 AM EDT Last see pcp SH[facility] MOLDER 02/14/21. Next appt with [facility] MOLDER 05/04/22. * Telephone Encounter - Cailin Austin - 04/03/2022 9:48 [...] notify patient. Cailin Austin documented in this encounterEast [facility]05-03-2022 Instructions* Patient Instructions* Nicole Kenny APRN.CNP - 03/13/2022 2:44 PM EDT Cigarette Logs [...] candy are also excellent oral substitutes. Phone [phone] ([phone]) as additional resource. CT Lung Screen Results [...] to endocrinology. Others Lung Cancer Screening hotline: [phone] Lung Cancer Screening [phone] Billing Questions: or [email or web address] Lung Cancer Screening Team: Linda Meyer CNP; Crystal Kenny CNP; Eri Cheung CNP; Agata Cruz CNP, JAYMIE SrivastavaC: [phone] Bouchra Cuenca PA-C documented in this encounterEast [facility]05-03-2022 History of Present illness Narrative* Nicole Kenny APRN.CNP - 03/13/2022 2:10 PM EDT [...] 50% of waking hrs. Modified Medical Research [place] Dyspnea Scale (MMRC) On level ground I [...] HISTORY Diagnosis Date Acute pancreatitis 2010 Maynor Matthews Alcohol use disorder 01/18/2016 Dr[facility] Angie [facility] Anxiety 12/14/2015 Bipolar affective disorder, currently active ([facility]) 01/18/2016 Dr. Angie Jones, [facility] Chronic bronchitis ([facility]) 07/26/2016 Closed skull fracture ([facility]) 1994 [facility], [facility] Coronary artery disease DDD (degenerative disc disease), cervical Endometriosis 2007 Essential hypertension 12/14/2015 GERD (gastroesophageal reflux disease) 03/13/2019 History of colon polyps History of gastric ulcer 12/14/2015 HLD (hyperlipidemia) Injury of left facial nerve 1994 PAD (peripheral artery disease) ([facility]) 09/28/2019 Recurrent major depression in partial remission ([facility]) 12/14/2015 S/P drug eluting coronary stent [...] TOTAL FACIAL NERVE DECOMPRESSION &/REPAIR Left 1989 [facility] H[facility] Problem Relation Age of [...] Date(s) Administered COVID-19 vaccine, age 12+ yr ([facility]) 11/21/2021 Influenza Seasonal Inj Quad Age 6 Mo - 64 Yrs 01/06/2020 Pneumovax 04/21/2018 influenza, high-dose, quadrivalent vaccine (FLUZONE HIGH DOSE QUADRIVALENT) 08/23/2020 Colonoscopy: 04/03/2017 Mammogram: DATA REVIEW I have directly visualized the testing documented: Prior Imaging: CT: Yes 2020 Abnormal Done at [facility] 01/2021 CXR: Yes 2020 Abnormal Nonspecific prominence of bronchovascular markings at the lung bases. No consolidation. No lung mass. No pleural effusion. No pneumothorax. Pulmonary Function Testing: PFT:No textual results found for the specified procedure(s). PHYSICAL EXAM: BP 157/76 (BP Site: Left Arm, BP Position: Sitting, BP Cuff Size: Regular Adult) Pulse 81 Ht 165.1 cm (5' 5) Wt 60.9 kg (134 lb 4.8 oz) [...] risk for lung cancer: 23.1 % Source: Well[employer] https://Well[employer]/Bulgarian/result/female_[email or web address]_yes_[email or web address]_108 http://www.Ukash/tiny/oa8j0 I have determined that the patient is [...] candy are also excellent oral substitutes. Phone [phone] ([phone]) as additional resource. The medical conditions adversely [...] which included preparing to see the patient, [id number] patient care, completing clinical documentation, obtaining and/or reviewing separately obtained history, performing a medically appropriate examination, counseling and educating the pat ient/family/caregiver, ordering medications, tests, or procedures and communicating results to the patient/family/caregiver. Nicole Kenny APRN.LINDA NPI #: March 13, 2022 2:10 PM documented in this encounterEast [facility]04-21-2022 Miscellaneous Notes* Telephone Encounter - Joyce [...] notify patient. Isadora Anglin documented in this encounterEast [facility]11-30-2021 NoteHNO ID: [id number] Author: RT Hiral(R) Service: Radiology Author Type: [...] PERIPHERAL IV DATA: Not applicable SIGNED BY: Christina Bravo, RT(R) October 10, 2021 11:15 AMUniversity Hospitals Ahuja Medical [id number] NoteHNO ID: [id number] Author: Tracy Ramires APRN.SUPERVISOR MOLD YARD Service: ? Author Type: Nurse Practitioner Type: [...] seen by myself on 06/12/2021 at our [place] office. Stress testing was done d/t symptoms and need for cardiac clearance. TID ratio was elevated so she was recommended a LHC and ultimately had PCI of the LAD/D1 [...] Diagnosis Date - Acute pancreatitis 2010 Maynor Matthews - Alcohol use disorder 01/18/2016 [facility] - Anxiety 12/14/2015 - Bipolar affective disorder, currently active ([facility]) 01/18/2016 Dr[facility] - Chronic bronchitis ([facility]) 07/26/2016 - Closed skull fracture ([facility]) 1994 [facility], [facility] - Coronary artery disease - DDD (degenerative disc disease), cervical - Endometriosis 2007 - Essential hypertension 12/14/2015 - GERD (gastroesophageal reflux disease) 03/13/2019 - History of colon polyps - History of gastric ulcer 12/14/2015 - HLD (hyperlipidemia) - Injury of left facial nerve 1994 - PAD (peripheral artery disease) ([facility]) 09/28/2019 - Recurrent major depression in partial remission ([facility]) 12/14/2015 - S/P drug eluting coronary stent placement 08/25/2021 LAD and Dg2 - Spinal stenosis PAST SURGICAL HISTORY Procedure Laterality Date - APPENDECTOMY 1979 - COLONOSCOP W/ OR W/O [facility] SPEC 2010 Colonoscopy - COLONOSCOPY 04/03/2017 diverticulosis- repeat 10 years - DECOMPRESS FACIAL NERVE,TOTAL Left 1989 [facility] - EGD 04/03/2017 Gastritis, duodenitis, GERD with esophagitis - ENDARTERECTOMY FEMORAL PROFUNDA Right 10/20/2019 patch angioplasty, Right iliac stent - PAST SURGICAL HISTORY OF 1994 cervical disc surgery x 3 - REMOVAL GALLBLADDER 1979 Cholecystectomy - REMOVAL OF TONSILS,<12 Y/O 1960 Tonsillectomy - STENT PLACEMENT 08/25/2021 RODNEY LAD AND Dg2 - TOTAL ABDOM HYSTERECTOMY 1979 Hysterectomy, MAURA - TOTAL HIP REPLACEMENT Right [...] tablet 0 - camron (more content not included)...[facility]10-04-2021 Note HNO ID: [id number] Author: MAISHA Alicea Service: Radiology Author Type: Clinical Jacquard Loom Fixer Type: Progress Notes Filed: 08/14/2021 4:04 PM [...] POST EXAM PIV STATUS: Discontinued PROCEDURE TYPE: [place] Stress: 12.6mCi [id number] was administered IV for Rest Imaging at 13:45 by MAISHA Alicea. 30.5 mCi [id number] was administered IV for Stress Imaging at 15:40 by MAISHA Alicea. PATIENT DISCHARGED TO: Ambulatory patient, left [place] department area. A Diagnostic radioactive procedure has taken place, with no further precautions necessary other than routine body substance precautions. More information regarding radiation safety can be found using this link: [email or web address] SIGNATURE: MAISHA Alicea PATIENT NAME: Steven Koenig DATE: August 14, 2021 TIME: 4:03 PM PAGER/CONTACT #:[facility] [id number] History of Present illness Narrative* Carol Godinez [...] 27, 2021 10:19 AM documented in this encounter[facility]03-19-[facility]21 History of Present illness Narrative* Carol [...] 27, 2021 10:18 AM documented in this encounterEast [facility]08-27-2020 History of Past illness Narrative* Problem [...] of this encounter (statuses as of 03/01/2022) [facility] Narrative* Problem [...] of this encounter (statuses as of 03/13/2022) [facility] Narrative* Problem [...] of this encounter (statuses as of 03/23/2022) [facility] Narrative* Problem [...] of this encounter (statuses as of 04/03/2022) [facility] Narrative* Problem Noted Date Resolved Date Asthma 07/07/2020 07/07/2020 Hypomagnesemia 10/22/2019 10/23/2019 Last Assessment & Plan: [facility] Preop cardiovascular exam 09/28/20192018 Precordial pain, [...] of this encounter (statuses as of 05/03/2022) [facility] of [facility] illness Narrative* Problem [...] of this encounter (statuses as of 05/07/2022) [facility] Narrative* Problem [...] of this encounter (statuses as of 05/11/2022) [facility] Narrative* Problem [...] of this encounter (statuses as of 05/23/2022) [facility] Narrative* Problem [...] of this encounter (statuses as of 05/24/2022) [facility] Narrative* Problem [...] of this encounter (statuses as of 05/25/2022) [facility] Narrative* Problem [...] of this encounter (statuses as of 05/29/2022) [facility] Narrative* Problem [...] of this encounter (statuses as of 05/30/2022) [facility] Narrative* Problem [...] of this encounter (statuses as of 05/30/2022) [facility] Narrative* Problem [...] of this encounter (statuses as of 06/01/2022) [facility] Narrative* Problem [...] of this encounter (statuses as of 06/04/2022) [facility] Narrative* Problem [...] of this encounter (statuses as of 06/06/2022) [facility] Narrative* Problem [...] of this encounter (statuses as of 06/06/2022) [facility] Narrative* Problem [...] of this encounter (statuses as of 06/15/2022) [facility] Narrative* Problem [...] of this encounter (statuses as of 07/06/2022) [facility] Narrative* Problem [...] of this encounter (statuses as of 07/09/2022) [facility] Narrative* Problem [...] of this encounter (statuses as of 07/18/2022) [facility] Narrative* Problem [...] of this encounter (statuses as of 07/24/2022) [facility] Narrative* Problem [...] of this encounter (statuses as of 07/31/2022) [facility] Narrative* Problem [...] of this encounter (statuses as of 08/10/2022) [facility] Narrative* Problem [...] of this encounter (statuses as of 08/16/2022) [facility] Narrative* Problem [...] of this encounter (statuses as of 08/31/2022) [facility] Narrative* Problem [...] of this encounter (statuses as of 09/05/2022) [facility] Narrative* Problem [...] of this encounter (statuses as of 09/06/2022) [facility] Narrative* Problem [...] of this encounter (statuses as of 09/24/2022) [facility] Narrative* Problem [...] of this encounter (statuses as of 09/30/2022) [facility] Narrative* Problem [...] of this encounter (statuses as of 10/02/2022) [facility] Narrative* Problem [...] of this encounter (statuses as of 11/26/2022) [facility] Narrative* Problem [...] of this encounter (statuses as of 12/15/2022) [facility] Narrative* Problem [...] of this encounter (statuses as of 01/01/2023) [facility]ative* Problem [...] of this encounter (statuses as of 01/01/2023) [facility]ative* Problem [...] of this encounter (statuses as of 02/27/2023) [facility] Narrative* Problem Noted Date Resolved Date Asthma 07/07/2020 07/07/2020 Hypomagnesemia 10/22/2019 10/23/2019 Last Assessment & Plan: Replete [facility] Preop cardiovascular exam 09/28/20192018 Precordial pain, short [...] of this encounter (statuses as of 04/16/2023) [facility] Narrative* Problem [...] of this encounter (statuses as of 05/09/2023) [facility] Narrative* Problem [...] of this encounter (statuses as of 05/09/2023) [facility]ative* Problem [...] of this encounter (statuses as of 05/14/2023) [facility]* Problem [...] of this encounter (statuses as of 05/28/2023) [facility]* Problem [...] of this encounter (statuses as of 06/07/2023) [facility]* Problem [...] of this encounter (statuses as of 06/11/2023) [facility] Narrative* Problem [...] Hyperkalemia 07/27/2016 11/27/2018 Polycythemia 07/27/2016 11/27/2018 Overview: deepakstephan Anxiety 12/14/2015 01/06/2021 documented as of this encounter (statuses as of 06/13/2023) [facility] Narrative* Problem [...] Hyperkalemia 07/27/2016 11/27/2018 Polycythemia 07/27/2016 11/27/2018 Overview: deepakstephan Anxiety 12/14/2015 01/06/2021 documented as of this encounter (statuses as of 06/14/2023) [facility] Narrative* Problem [...] of this encounter (statuses as of 09/26/2023) [facility] Narrative* Problem [...] of this encounter (statuses as of 10/18/2023) [facility] Narrative* Problem [...] of this encounter (statuses as of 12/24/2023) [facility] Narrative* Problem [...] of this encounter (statuses as of 01/25/2024) [facility] No data available for this section [facility] Evaluation + Plan note Future Appointments Appointment Date:01/21/2025 02:00:00 PM Scheduled Provider:EMMA QUEEN DO Location:[facility] Appointment Type:PC OV [facility] Evaluation + Plan note Future Appointments Appointment Date:12/14/2024 08:00:00 AM Scheduled Provider: Location:[facility] Appointment Type:CV Procedure - Heart Lab/Hybrid OR Appointment Date:12/18/2024 02:00:00 PM Scheduled Provider: Location:[facility] Appointment Type:Echo - Echocardiogram Adult Appointment Date:01/18/2025 10:00:00 AM Scheduled Provider:CHRISTIN GONZALEZ Location:[facility] Appointment Type:CV OV Appointment Date:01/21/2025 02:00:00 PM Scheduled Provider:EMMA QUEEN DO Location:[facility] Appointment Type:PC OV [facility] Evaluation + Plan note Future Appointments Appointment Date:12/18/2024 02:00:00 PM Scheduled Provider: Location:[facility] Appointment Type:Echo - Echocardiogram Adult Appointment Date:01/18/2025 10:00:00 AM Scheduled Provider:CHRISTIN GONZALEZ Location:[facility] Appointment Type:CV OV Appointment Date:01/21/2025 02:00:00 PM Scheduled Provider:EMMA QUEEN DO Location:[facility] Appointment Type:PC OV Diagnostic Tests Pending * Complete Blood Count 12/14/24 [facility] evaluation + Plan note Future Appointments Appointment Date:01/18/2025 10:00:00 AM Scheduled Provider:CHRISTIN GONZALEZ Location:[facility] Appointment Type:CV OV Appointment Date:01/21/2025 02:00:00 PM Scheduled Provider:EMMA QUEEN DO Location:[facility] Appointment Type:PC OV [facility] Evaluation + Plan note Future Appointments Appointment Date:07/30/2025 10:00:00 AM Scheduled Provider:EMMA QUEEN DO Location:[facility] Appointment Type:PC OV Diagnostic Tests Pending * Blood Culture (bacterial) 06/12/25 * Blood Culture (bacterial) 06/12/25 Future Scheduled Tests Laboratory* Basic Metabolic Panel 01/11/25 * N-Terminal proBNP 01/11/25 Radiology* MRI Cardiac Morphology & Func W+W/O Cont 02/23/25 * CT Low Dose Lung Cancer Screening (LDCT) 03/10/25 [facility] evaluation note* Diagnosis Recurrent major depression in partial remission (HCC) Major depressive disorder, recurrent episode, in partial or unspecified remission documented [facility] this [facility]* Diagnosis Dyspnea on exertion- Primary Other dyspnea and respiratory abnormality Smoker Tobacco use disorder Encounter for screening for malignant neoplasm of lung documented in this encounter [facility]* Diagnosis Wheezing documented in this [facility]* Diagnosis DIAZ (dyspnea on exertion)- Primary Other dyspnea and respiratory abnormality Essential hypertension Unspecified essential hypertension Coronary artery disease involving [place] coronary artery of [place] heart without angina pectoris Mixed hyperlipidemia Smoker Tobacco use disorder Stenosis of carotid artery, unspecified laterality documented in this encounter [facility]* Diagnosis Recurrent major depression in partial remission (HCC) Major depressive disorder, recurrent episode, in partial or unspecified remission documented [facility] this [facility]* Diagnosis Chronic bronchitis, unspecified chronic bronchitis type (HCC)- Primary Recurrent major depression in partial remission (HCC) Major depressive disorder, recurrent episode, in partial or unspecified remission Gastroesophageal reflux disease, unspecified whether esophagitis present Need for vaccination Need for prophylactic vaccination and inoculation against unspecified single disease Bipolar affective disorder, current episode mixed, current episode severity unspecified (HCC) PAD (peripheral artery disease) ([facility]) Peripheral vascular disease, unspecified documented in this encounter [facility]* Diagnosis DIAZ (dyspnea on exertion) Other dyspnea and respiratory abnormality documented [facility] this [facility]* Diagnosis Tobacco use disorder- Primary documented in this [facility]* Diagnosis Smoker- Primary Tobacco use disorder Encounter for screening for malignant neoplasm of lung documented in this encounter [facility]* Diagnosis Chronic bronchitis, unspecified chronic bronchitis type (HCC)- Primary documented in this [facility]* Diagnosis Dyspnea on exertion Other dyspnea and respiratory abnormality [facility] Diagnosis Asthma-COPD overlap syndrome (HCC)- Primary Wheezing Smoking Tobacco use disorder documented [facility] this [facility]* Diagnosis Recurrent major depression in partial remission (HCC) Major depressive disorder, recurrent episode, in partial or unspecified remission documented [facility] this [facility]* Diagnosis SOB (shortness of breath)- Primary Shortness of breath documented [facility] this [facility]* Diagnosis SOB (shortness of breath) Shortness of breath documented [facility] this [facility]* Diagnosis Recurrent major depression in partial remission (HCC) Major depressive disorder, recurrent episode, in partial or unspecified remission documented in this encounter [facility] note* Diagnosis Lung nodules- Primary Other nonspecific abnormal finding of lung field Current smoker Tobacco use disorder documented in this encounter [facility] note* Diagnosis Situational anxiety- Primary Other anxiety states Allergic conjunctivitis of both eyes Other chronic allergic conjunctivitis Recurrent major depression in partial remission (HCC) Major depressive disorder, recurrent episode, in partial or unspecified remission Essential hypertension Unspecified essential hypertension Coronary artery disease involving [place] coronary artery of [place] heart without angina pectoris Chronic bronchitis, unspecified chronic bronchitis type ([facility]) Encounter for immunization Need for other specified prophylactic vaccination against single bacterial disease Mixed hyperlipidemia Lung nodule Solitary pulmonary nodule Screening for osteoporosis Special screening for osteoporosis Asymptomatic menopause documented in this encounter [facility]* Diagnosis Thrush (oral)- Primary Prediabetes Other abnormal glucose Essential hypertension Unspecified essential hypertension documented in this encounter [facility] note* Diagnosis Peripheral arterial disease (HCC)- Primary Peripheral vascular disease, unspecified documented in this encounter [facility] note* Diagnosis PAD (peripheral artery disease) ([facility]) Peripheral vascular disease, unspecified documented in this encounter [facility] note* Diagnosis Hemoptysis- Primary Hemoptysis, unspecified Stage 3 severe COPD by GOLD classification ([facility]) Cigarette smoker Tobacco use disorder documented in this encounter [facility]* Diagnosis Alcohol withdrawal syndrome without complication (HCC)- Primary documented in this encounter [facility] note* Diagnosis Onset Date Resolution Status Alcohol intoxication acute Chest pain acute Desire for detoxification ac [place] COPD exacerbation [facility] Work Phone: Evaluation note* Diagnosis Onset Date Resolution Status Alcohol intoxication acute Chest pain acute Desire for detoxification [place] Peripheral arterial disease acute Pneumococcal pneumonia acute Rash acute COPD exacerbation [facility] Work Phone: Evaluation note* Diagnosis Dehydration- Primary documented in this encounter [facility] Work Phone: evaluation note* Diagnosis Chronic midline low back pain with sciatica, sciatica laterality unspecified- Primary Lesion of left ear Essential hypertension Unspecified essential hypertension Mixed hyperlipidemia Chronic bronchitis, unspecified chronic bronchitis type (HCC) Recurrent major depression in partial remission (HCC) Major depressive disorder, recurrent episode, in partial or unspecified remission Coronary artery disease involving [place] coronary artery of [place] heart without angina pectoris documented in this encounter [facility]* Diagnosis Stage 3 severe COPD by GOLD classification ([facility])- Primary Cigarette smoker Tobacco use disorder Lung nodules Other nonspecific abnormal finding of lung field documented in this encounter [facility] note* Diagnosis Radiculopathy, lumbar region- Primary Thoracic or lumbosacral neuritis or radiculitis, unspecified Chronic midline low back pain with sciatica, sciatica laterality unspecified documented in this encounter [facility] note* Diagnosis Encounter for screening for lung cancer- Primary Tobacco use current documented in this encounter [facility] note* Diagnosis Essential hypertension Unspecified essential hypertension Recurrent major depression in partial remission (HCC) Major depressive disorder, recurrent episode, in partial or unspecified remission documented in this encounter [facility] note* Diagnosis Coronary artery disease involving [place] coronary artery of [place] heart without angina pectoris- Primary Wheezing Essential hypertension Unspecified essential hypertension Gastroesophageal reflux disease, unspecified whether esophagitis present Recurrent major depression in partial remission (HCC) Major depressive disorder, recurrent episode, in partial or unspecified remission documented in this encounter [facility] note* Diagnosis Wheezing [facility] Diagnosis Wheezing Essential hypertension Unspecified essential hypertension Gastroesophageal reflux disease, unspecified whether esophagitis present Recurrent major depression in partial remission (HCC) Major depressive disorder, recurrent episode, in partial or unspecified remission documented in this encounter [facility] note* Diagnosis Wheezing [facility] Diagnosis Pre-operative examination- Primary Preoperative examination, unspecified Primary osteoarthritis of right hip Primary localized osteoarthrosis, pelvic region and thigh Essential hypertension Unspecified essential hypertension Chronic bronchitis, unspecified chronic bronchitis type ([facility]) Smoker Tobacco use disorder Recurrent major depression in partial remission (HCC) Major depressive disorder, recurrent episode, in partial or unspecified remission Bipolar affective disorder, current episode mixed, current episode severity unspecified ([facility]) Gastroesophageal reflux disease, esophagitis presence not specified PAD (peripheral artery disease) ([facility])- Primary Peripheral vascular disease, unspecified PAD (peripheral artery disease) ([facility]) Peripheral vascular disease, unspecified Essential hypertension Unspecified essential hypertension Smoker Tobacco use disorder Chronic bronchitis, unspecified chronic bronchitis type ([facility]) Smoker Tobacco use disorder Hypomagnesemia Disorders of magnesium metabolism Preoperative examination- Primary Preoperative examination, unspecified PAD (peripheral artery disease) ([facility]) Peripheral vascular disease, unspecified Essential hypertension Unspecified [...] Unspecified essential hypertension Coronary artery disease involving [place] coronary artery of [place] heart without angina pectoris Chronic bronchitis, unspecified chronic bronchitis type (HCC) Encounter for immunization Need for other specified prophylactic vaccination against single bacterial disease Mixed hyperlipidemia Lung nodule Solitary pulmonary nodule Screening for osteoporosis Special screening for osteoporosis Asymptomatic menopause Chronic midline low back pain with sciatica, sciatica laterality unspecified [facility] Diagnosis Pre-operative examination- Primary Preoperative [...] vascular disease, unspecified PAD (peripheral artery disease) ([facility]) Peripheral vascular disease, unspecified Essential hypertension Unspecified [...] Unspecified essential hypertension Coronary artery disease involving [place] coronary artery of [place] heart without angina pectoris Chronic bronchitis, unspecified chronic bronchitis type ([facility]) Encounter for immunization Need for other specified prophylactic vaccination against single bacterial disease Mixed hyperlipidemia Lung nodule Solitary pulmonary nodule Screening for osteoporosis Special screening for osteoporosis Asymptomatic menopause Hemoptysis Hemoptysis, unspecified [facility] Diagnosis Pre-operative examination- Primary Preoperative examination, unspecified Primary osteoarthritis of right hip Primary localized osteoarthrosis, pelvic region and thigh Essential hypertension Unspecified essential hypertension Chronic bronchitis, unspecified chronic bronchitis type ([facility]) Smoker Tobacco use disorder Recurrent major depression in partial remission (HCC) Major depressive disorder, recurrent episode, in partial or unspecified remission Bipolar affective disorder, current episode mixed, current episode severity unspecified ([facility]) Gastroesophageal reflux disease, esophagitis presence not specified PAD (peripheral artery disease) ([facility])- Primary Peripheral vascular disease, unspecified PAD (peripheral artery disease) ([facility]) Peripheral vascular disease, unspecified Essential hypertension Unspecified essential hypertension Smoker Tobacco use disorder Chronic bronchitis, unspecified chronic bronchitis type (HCC) Essential hypertension Unspecified essential hypertension Smoker Tobacco use disorder Hypomagnesemia Disorders of magnesium metabolism Preoperative examination- Primary Preoperative examination, unspecified PAD (peripheral artery disease) ([facility]) Peripheral vascular disease, unspecified Essential hypertension Unspecified essential hypertension Precordial pain, short lived, 3-5 minutes, nonexertional, no evidence of stress-induced ischemia on dobutamine echo in January 2019. Precordial pain Chronic bronchitis, unspecified chronic bronchitis type ([facility]) Smoker Tobacco use disorder Gastroesophageal reflux disease, [...] Unspecified essential hypertension Coronary artery disease involving [place] coronary artery of [place] heart without angina pectoris Chronic bronchitis, unspecified chronic bronchitis type (HCC) Encounter for immunization Need for other specified prophylactic vaccination against single bacterial disease Mixed hyperlipidemia Lung nodule Solitary pulmonary nodule Screening for osteoporosis Special screening for osteoporosis Asymptomatic menopause [facility]. White [facility] January 02, 2023 9:37pm Note Date/Time January 02, 2023 9:19pm [facility] Medical Records Department [address] [place] [address] History & Physical Exam 01/02/232135 MR#: [id number] Acct: [id number] Name: STEVEN KOENIG Rep #:[id number] : [...] abuse, Tobacco use who presents to the [facility] ED on 01/02/23 with history of [...] rhythm with no acute evidence of ischemia. [facility] Alcohol abuse Anxiety and depression [...] Clarity Clear, Urine pH 6.0, Ur Specific [place] 1.005, Urine Protein Negative, Urine Glucose (UA) [...] % (Auto) 50.1, Lymph % (Auto) 37.2, [place] % (Auto) 9.6, Eos % (Auto) 1.4, [...] 21:10 EST Reading Location ID and State: [address] [place] [address] , Service support , Assessment & Plan Assessment/Plan (1) Chest pain: (2) COPD exacerbation: (3) Desire for detoxification: PLAN: Plan The patient is a 67 y/o F w/ PMHx: COPD, HTN, HLD, Depression and Anxiety, EtOH abuse, Tobacco use who presents to the [facility] ED on 01/02/23 with history of [...] 76 minutes. Charges/Coding Visit Charges Inpatient E&M: 25701 Init Hosp L3 01/02/232136 <Electronically signed by Linda Luque MD> Cosigner Signature (if applicable): CC: Dr. Linda Luque MD; Dr. Ulises Hermosillo MD~ Signed [facility] Work Phone: Hospital Discharge instructions No data available for this section [facility]* Yolanda Gonzalez RN: PERFORM Event Display: [facility] Outpatient Patient Summary Authored Date: [id number] Discharge Instructions Thank you for allowing [facility] to assist you with your healthcare needs. [...] MD When Within 2-4 days Where: [address] [place] [address]- Allergies NKA Medications Please ask your primary [...] may report side effects to FDA at 0-619-ICZ-9715. What other drugs will affect budesonide and formoterol? Sometimes it is not safe to use certain medications at the same time. Some drugs can affect your blood levels of other drugs you take, which may increase side effects or make the medications less effective. Many drugs can affect budesonide and formoterol. This includes prescription and vgpp-rdn-imkciwd medicines, vitamins, and herbal products. Not all [...] to ensure that the information provided by [employer]. ('[employer]') is accurate, up-to-date, and complete, but no guarantee is made to that effect. Drug information contained herein may be time sensitive. [employer] information has been compiled for use by healthcare practitioners and consumers in the [place] and therefore [employer] does not warrant that uses outside of the [place] are appropriate, unless specifically indicated otherwise. [employer] drug information does not endorse drugs, diagnose patients or recommend therapy. [employer] drug information isan informational resource designed to [...] effective or appropriate for any given patient. [employer] does not assume any responsibility for any aspect of healthcare administered with the aid of information [facility] provides. The information contained herein is not intended to cover all possible uses, directions, precautions, warnings, drug interactions, allergic reactions, or adverse effects. If you have questions about the drugs you are taking, check with your doctor, nurse or pharmacist. Copyright 1558-7780 [employer]. Version: 9.02. Revision Date: 07/08/2019. prednisone (PRED ni sonstephanie) Billy What is the most important information [...] may report side effects to FDA at 4-387-VAK-2291. What other drugs will affect prednisone? Sometimes [...] may affect prednisone. This includes prescription and bpqx-ogk-xoesvik medicines, vitamins, and herbal products. Not all [...] to ensure that the information provided by [employer]. ('[employer]') is accurate, up-to-date, and complete, but no guarantee is made to that effect. Drug information contained herein may be time sensitive. [employer] information has been compiled for use by healthcare practitioners and consumers in the [place] and therefore [employer] does not warrant that uses outside of the [place] are appropriate, unless specifically indicated otherwise. [employer]'s drug information does not endorse drugs, diagnose patients or recommend therapy. [employer] drug information isan informational resource designed to [...] effective or appropriate for any given patient. [employer] does not assume any responsibility for any aspect of healthcare administered with the aid of information [employer] provides. The information contained herein is not intended to cover all possible uses, directions, precautions, warnings, drug interactions, allergic reactions, or adverse effects. If you have questions about the drugs you are taking, check with your doctor, nurse or pharmacist. Copyright 6087-5990 [employer]. Version: 10.. Revision Date: 02/05/2019. doxycycline (oral/injection) (MECHELLE kam) Acticlate, Adoxa, Alodox, Avidoxy, Doryx, Mondoxyne [...] or life-threatening conditions such as anthrax or [place] spotted fever. The benefit of treating a [...] may report side effects to FDA at 2-395-NCG-6966. What other drugs will affect doxycycline? Sometimes it is not safe to use certain medications at the same time. Some drugs can affect your blood levels of other drugs you take, which may increase side effects or make the medications less effective. Other drugs may affect doxycycline, including prescription and ylsq-vyd-jxnorvc medicines, vitamins, and herbal products. Tell your [...] to ensure that the information provided by [employer]. ('[employer]') is accurate, up-to-date, and complete, but no guarantee is made to that effect. Drug information contained herein may be time sensitive. [employer] information has been compiled for use by healthcare practitioners and consumers in the [place] and therefore [employer] does not warrant that uses outside of the [place] are appropriate, unless specifically indicated otherwise. [employer] drug information does not endorse drugs, diagnose patients or recommend therapy. [employer] drug information isan informational resource designed to [...] effective or appropriate for any given patient. [employer] does not assume any responsibility for any aspect of healthcare administered with the aid of information [employer] provides. The information contained herein is not intended to cover all possible uses, directions, precautions, warnings, drug interactions, allergic reactions, or adverse effects. If you have questions about the drugs you are taking, check with your doctor, nurse or pharmacist. Copyright 5833-1620 [employer]. Version: 21.04. Revision Date: 09/14/2020. Education Materials [...] your ankles gets worse Dizziness or weakness 5562-2157 [employer]. [address] [place] [address]. All rights reserved. This information is not intended as a substitute for professional medical care. Always follow yourhealthcare professional's instructions. Additional Information VACCINATE! IT SAVES LIVES! Members of the community who have not yet received the COVID-19 vaccine and would like to receive it can visit one of [facility] vaccine clinics. There are many vaccine clinic locations within the [facility]. For locations and available times, please visit [email or web address]. It is important to note that some COVID mobile vaccine clinics are held outdoors and may be canceled in rainy orstormy conditions. To learn more about pediatric vaccinations (ages 5-11), we invite you to visit the [facility] webpage. [email or web address] learn more about the COVID-19 vaccine, we invite you to visit the [facility] website for a list of frequently asked questions. [email or web address] [facility] Patient Portal Access Instructions: Stay connected with your healthcare team and access your personal medical information anytime with the [facility] Patient Portal. If you would like a full copy of your medical records please contact the [facility] Medical Records Department Saturday through Saturday between 8a.m. and 4:30p.m. Please follow the directions below to access the portal: 1.Access the email account you provided upon registration to the [facility].2.Look for an invitation email from [facility].3.Open the email and access the invitation link: Accept Invitation to [facility]4.Fill in the required randle to create your account. Sign into www.[employer] with your username and password that you [...] you will allow to register on the [facility] Patient Portal for access to your information. You can also access the [facility] Patient Portal on the [employer]. Simply click on Health Records under [facility] and then click on the [employer] logo. HOW TO SAFELY DISPOSE OF PRESCRIPTION [...] Call your local pharmacy or go to http://bit.jules/[email or web address] to find one close to you.3.Make use of household items: Use cat litter or old coffee grounds to dispose medications if other options arenot available. Mix your drugs with these household products, seal them in an airtight container andthrow it into the garbage. Call [facility]: [phone] to be sure your drugs can be [...] aware that I should contact my doctor. Patient/[employer] Signature: Date/Time: Relationship to Patient: Witness Name/Signature: Date/Time: * ZINA GLOVER DO: SIGN, VERIFY Event Display: EKG [ED AOH] - CV Authored Date: [id number] [facility] Progress note No data available for this section [facility] Reason for referral (narrative)* Outpatient Procedure (Routine) - Authorized Specialty Diagnoses / Procedures Referred By Contac t Referred To Contact [facility] Diagnoses DIAZ (dyspnea on exertion) Procedures ECHO ECHO TTHRC R-T 2D W/WOM-MODE COMPL SPEC&COLR D Tracy Ramires APRN.SUPERVISOR MOLD YARD [address] [place] [address] [facility] [address] [address] Referral ID Status Reason Start Date Expiration Date Visits Requested Visits Authorized [id number] Authorized Auto-Generat ed Referral 04/30/2022 04/30/2023 1 1 [facility] for referral (narrative)* Outpatient Procedure (Routine) - Authorized Specialty Diagnoses / Procedures Referred By Contac t Referred To Contact [facility] Diagnoses SOB (shortness of breath) Procedures OXIMETRY WITH AMBULATION NONINVASIVE EAR/PULSE OXIMETRY MULTIPLE Margaret Atwood MD [address] [place] [address] [facility] [place] [address] [place] [id number] Referral ID Status Reason Start Date Expiration Date Visits Requested Visits Authorized [id number] Authorized Auto-Generat ed Referral 07/06/2022 08/05/2023 1 1 [facility] for referral (narrative)* Outpatient Procedure (Routine) - Authorized Specialty Diagnoses / Procedures Referred By Contac t Referred To Contact [facility] Diagnoses Peripheral arterial disease (HCC) Procedures PVR LEG SHERIN VAS LAB NON-INVASIVE PHYSIOLOGIC STUDY EXTREMITY 3 Doron Mahoney DO [address] [place] [address] [facility] [place] [address] [place] [address] Referral ID Status Reason Start Date Expiration Date Visits Requested Visits Authorized [id number] Authorized Auto-Generat ed Referral 2 11/10/2022 1 1 [facility] for referral (narrative)* Outpatient Procedure (Routine) - Pending Review Specialty Diagnoses / Procedures Referred By Contac t Referred To Contact [facility] Diagnoses PAD (peripheral artery disease) (HCC) Procedures PVR LEG SHERIN VAS LAB NON-INVASIVE PHYSIOLOGIC STUDY EXTREMITY 3 Doron Mahoney, DO [address] [place] [address] [facility] [address] [place] [address] Referral ID Status Reason Start Date Expiration Date Visits Requested Visits Authorized [id number] Pending Review Auto-Generat ed Referral 2 10/02/2023 1 1 [facility] for referral (narrative)* Diagnostic Procedure Only (Routine) - Closed Specialty Diagnoses / Procedures Referred By Contac t Referred To Contact XR IMAGING Diagnoses Chronic midline low back pain with sciatica, sciatica laterality unspecified Procedures XR LUMBAR GENERAL 3V AP/LAT/L5-S1 RADEX SPINE LUMBOSACRAL 2/3 VIEWS Sarah, Oly, PLASTICS PRODUCTION MACHINE OPERATOR.SUPERVISOR MOLD YARD [address] [place] [address] Xr Imaging Referral ID Status Reason Start Date Expiration Date V isits Requested Visits Authorized [id number] Closed Auto-Generate d Referral 05/08/2023 06/06/2024 1 1 * Transition of Care (Routine) - Ref Not Required Specialty Diagnoses / Procedures Referred By Contac t Referred To Contact Dermatology Diagnoses Lesion of left ear Procedures CONSULT TO DERMATOLOGY Oly Smith APRN.SUPERVISOR M[employer] YARD [address] [place] [address] Referral ID Status Reason Start Date Expiration Date Visits Requested Visits Authorized [id number] Ref Not Required PCP Requested Referral 05/08/2023 05/07/2024 1 1 [facility] for referral (narrative)* Diagnostic Procedure Only (Routine) - Closed Specialty Diagnoses / Procedures Referred By Contac t Referred To Contact XR IMAGING Diagnoses Chronic midline low back pain with sciatica, sciatica laterality unspecified Procedures XR LUMBAR GENERAL 3V AP/LAT/L5-S1 RADEX SPINE LUMBOSACRAL 2/3 VIEWS Oly Durbin PLASTICS PRODUCTION MACHINE OPERATOR.SUPERVISOR MOLD YARD [address] [place] [address] [place] [address] Referral ID Status Reason Start Date Expiration Date V isits Requested Visits Authorized [id number] Closed Auto-Generate d Referral 05/08/2023 06/06/2024 1 1 [facility] for visit Narrative* Outpatient Procedure (Routine) - Closed Specialty Diagnoses / Procedures Referred By Contac t Referred To Contact [facility] Diagnoses DIAZ (dyspnea on exertion) Procedures ECHO ECHO TTHRC R-T 2D W/WOM-MODE COMPL SPEC&COLR D Tracy Ramires PLASTICS PRODUCTION MACHINE OPERATOR.SUPERVISOR MOLD YARD [address] [place] [address] [facility] [place] [address] [place] [address] Referral ID Status Reason Start Date Expiration Date V isits Requested Visits Authorized [id number] Closed Auto-Generate d Referral 04/30/2022 04/30/2023 1 1 [facility] for visit Narrative* Outpatient Procedure (Routine) - Closed Specialty Diagnoses / Procedures Referred By Contac t Referred To Contact [facility] Diagnoses SOB (shortness of breath) Procedures OXIMETRY WITH AMBULATION NONINVASIVE EAR/PULSE OXIMETRY MULTIPLE DETER Margaret Kasper MD [address] [place] [address] [facility] [place] [address] [place] [address] Referral ID Status Reason Start Date Expiration Date V isits Requested Visits Authorized [id number] Closed Auto-Generate d Referral 07/06/2022 08/05/2023 1 1 [facility] for visit Narrative* Diagnostic Procedure Only (Routine) - Closed Specialty Diagnoses / Procedures Referred By Contac t Referred To Contact XR IMAGING Diagnoses Chronic midline low back pain with sciatica, sciatica laterality unspecified Procedures XR LUMBAR GENERAL 3V AP/LAT/L5-S1 RADEX SPINE LUMBOSACRAL 2/3 VIEWS Oly Durbin M, PLASTICS PRODUCTION MACHINE OPERATOR.SUPERVISOR MOLD YARD [address] [place] [address] [place] [address] Referral ID Status Reason Start Date Expiration Date V isits Requested Visits Authorized [id number] Closed Auto-Generate d Referral 05/08/2023 06/06/2024 1 1 [facility] Summary Purpose Family History No Family History Records Found Relationship Condition Age at Onset Recorded Date/T eyad mother Malignant neoplasm of liver Unknown father Malignant neoplasm of lung Unknown Advance Directives No Advanced Directives Records FoundDocuments on File Type Date Recorded 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 Advance Directive(s) 08/25/2021 8:30 AM Advance Directive(s) 07/27/2021 5:44 PM Advance Directive(s) 10/20/2019 11:23 AM Advance Directive(s) 10/05/2019 10:43 AM Advance Directive(s) 03/25/2019 7:55 AM Advance Directive(s) 01/06/2019 12:24 PM Advance Directive(s) 03/19/2017 9:41 AM Documents on File Type Date Recorded 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 Advance Directive(s) 08/25/2021 8:30 AM Advance Directive(s) 07/27/2021 5:44 PM Advance Directive(s) 10/20/2019 11:23 AM Advance Directive(s) 10/05/2019 10:43 AM Advance Directive(s) 03/25/2019 7:55 AM Advance Directive(s) 01/06/2019 12:24 PM Advance Directive(s) 03/19/2017 9:41 AM Advance Directive Response Recorded Date/ Time Advance Directives No May 24 2:30pm Living Will No January 02 2 023 6:52pm Power of Auctioneer Automobile No January 02, 2023 6:52pm Advance Directive Response Recorded Date/ Time Advance Directives No May 24 2:30pm Living Will No January 02 023 11:38pm Power of Auctioneer Automobile No January 02, 2023 11:38pm Latest Code Status on File Code Status Date Activated Date Inactivated Comments Full Code 04/30/2018 3:04 AM 05/05/2018 2:43 PM Reason for Referral Specialty Diagnoses / Procedures Referred By Contac t Referred To Contact Pulmonary and Critical Care Medicine Diagnoses Dyspnea on exertion Procedures CONSULT TO PULM/CRITICAL CARE OFFICE/OUTPATIENT [facility] 60-74 MINUTES Nicole Kenny, PLASTICS PRODUCTION MACHINE OPERATOR.SUPERVISOR MOLD YARD [address] [place] [address] Referral ID Status Reason Start Date Expiration Date Visits Requested Visits Authorized [id number] Authorized PCP Requested Referral 03/13/2022 03/13/2023 1 1 Specialty Diagnoses / Procedures Referred By Contac t Referred To [facility] Diagnoses Dyspnea on exertion Procedures LUNG DIFFUSION CAPACITY (DLCO) DIFFUSING CAPACITY Nicole Kenny, PLASTICS PRODUCTION MACHINE OPERATOR.SUPERVISOR MOLD YARD [address] [place] [address] [facility] [place] [address] [place] [address] Referral ID Status Reason Start Date Expiration Date Visits Requested Visits Authorized [id number] Authorized Auto-Generat ed Referral 03/13/2022 04/12/2023 1 1 Specialty Diagnoses / Procedures Referred By Contac t Referred To [facility] Diagnoses Dyspnea on exertion Procedures SPIROMETRY - BASELINE AND POST DILATOR BRNCDILAT RSPSE SPMTRY PRE&POST-BRNCDILAT ADMN Nicole Kenny, PLASTICS PRODUCTION MACHINE OPERATOR.SUPERVISOR MOLD YARD [address] [place] [address] [facility] [place] [address] [place] [address] Referral ID Status Reason Start Date Expiration Date Visits Requested Visits Authorized [id number] Authorized Auto-Generat ed Referral 03/13/2022 04/12/2023 1 1 Specialty Diagnoses / Procedures Referred By Contac t Referred To Contact Vascular Surgery Diagnoses PAD (peripheral artery disease) (HCC) Procedures CONSULT TO VASCULAR SURGERY OFFICE/OUTPATIENT [facility] MDM 60-[place] [address] [place] [address] Referral ID Status Reason Start Date Expiration Date Visits Requested Visits Authorized [id number] Authorized PCP Requested Referral 05/11/2022 05/11/2023 1 1 Specialty Diagnoses / Procedures Referred By Contac t Referred To Contact [facility] Diagnoses PAD (peripheral artery disease) ([facility]) Procedures PVR LEG SHERIN VAS LAB NON-INVASIVE PHYSIOLOGIC STUDY EXTREMITY 3 LEVLS Ulises Hermosillo MD [address] [place] [address] [facility] [place] [address] [place] [address] Referral ID Status Reason Start Date Expiration Date Visits Requested Visits Authorized [id number] Authorized Auto-Generat ed Referral 05/11/2022 05/11/2023 1 1 Specialty Diagnoses / Procedures Referred By Contac t Referred To Contact CT IMAGING Diagnoses Smoker Encounter for screening for malignant neoplasm of lung Procedures CT LUNG SCREEN WO IVCON COMPUTED TOMOGRAPHY THORAX LW DOSE LNG CA SCR C- Nicole Kenny, MELISSA.SUPERVISOR MOLD YARD [address] [place] [address] Ct Imaging Referral ID Status Reason Start Date Expiration Date Visits Requested Visits Authorized [id number] Pending Review Auto-Generat ed Referral 05/30/2022 06/29/2023 1 1 Specialty Diagnoses / Procedures Referred By Contac t Referred To Contact [facility] Diagnoses Radiculopathy, lumbar region Chronic midline low back pain with sciatica, sciatica laterality unspecified Procedures CONSULT TO PHYSICAL THERAPY PHYSICAL THERAPY EVALUATION HIGH COMPLEX 45 MINS Older, Oly PLASTICS PRODUCTION MACHINE OPERATOR.SUPERVISOR MOLD YARD [address] [place] [address] [facility] [place] [address] [place] [address] Referral ID Status Reason Start Date Expiration Date Visits Requested Visits Authorized [id number] Pending Review Auto-Generat ed Referral 05/13/2023 05/12/2024 1 1 Specialty Diagnoses / Procedures Referred By Contac t Referred To Contact Pain Management Diagnoses Radiculopathy, lumbar region Chronic midline low back pain with sciatica, sciatica laterality unspecified Procedures CONSULT TO PAIN MGT OFFICE/OUTPATIENT [facility] MDM 60-74 MINUTES Older, RAZIA AldridgeN.SUPERVISOR MOLD YARD [address] [place] [address] Referral ID Status Reason Start Date Expiration Date Visits Requested Visits Authorized [id number] Pending Review PCP Requested Referral 05/13/2023 05/12/2024 1 1 Specialty Diagnoses / Procedures Referred By Contac t Referred To Contact CT IMAGING Diagnoses Encounter for screening for lung cancer Tobacco use current Procedures CT LUNG SCREEN WO IVCON COMPUTED TOMOGRAPHY THORAX LW DOSE LNG CA Fifi Fitzpatrick, MELISSA.SUPERVISOR MOLD YARD [address] [place] [address] Ct Imaging Referral ID Status Reason Start Date Expiration Date Visits Requested Visits Authorized [id number] Pending Review Auto-Generat ed Referral 05/28/2023 06/26/2024 [...] section and content) DATE CREATED AUTHOR 04/29/2018 [facility] DATE CREATED AUTHOR AUTHOR'S ORGANIZ ATION 05/04/2018 [facility] DATE CREATED AUTHOR AUTHOR'S ORGANIZ ATION 01/05/2022 [facility] DATE CREATED AUTHOR AUTHOR'S ORGANIZ ATION 08/11/2022 [facility] DATE CREATED AUTHOR AUTHOR'S ORGANIZ ATION 12/29/2022 [facility] ([place]) DATE CREATED AUTHOR AUTHOR'S ORGANIZ ATION 01/08/2023 [facility] DATE CREATED AUTHOR AUTHOR'S ORGANIZ ATION 10/05/2023 [facility] DATE CREATED AUTHOR AUTHOR'S ORGANIZ ATION 07/02/2025 [facility] DATE CREATED AUTHOR AUTHOR'S ORGANIZ ATION 07/25/2025 [facility] DATE CREATED AUTHOR AUTHOR'S ORGANIZ ATION 07/28/2025 [facility] Source Comments (unrecognize d section and content) In the event this informatio n is protected by the Federal Confidentiality of Alcohol and Drug Abuse Patient Records regulations: The Federal rules restrict any use of the information to criminally investigate or prosecute any alcohol or drug abuse patient.[facility] the event this information is protected by the Federal Confidentiality of Alcohol and Drug Abuse Patient Records regulations: The Federal rules restrict any use of the information to criminally investigate or prosecute any alcohol or drug abuse patient.[facility] the event this information is protected by the Federal Confidentiality of Alcohol and Drug Abuse Patient Records regulations: The Federal rules restrict any use of the information to criminally investigate or prosecute any alcohol or drug abuse patient.[facility] the event this information is protected by the Federal Confidentiality of Alcohol and Drug Abuse Patient Records regulations: The Federal rules restrict any use of the information to criminally investigate or prosecute any alcohol or drug abuse patient.[facility] the event this information is protected by the Federal Confidentiality of Alcohol and Drug Abuse Patient Records regulations: The Federal rules restrict any use of the information to criminally investigate or prosecute any alcohol or drug abuse patient.[facility] the event this information is protected by the Federal Confidentiality of Alcohol and Drug Abuse Patient Records regulations: The Federal rules restrict any use of the information to criminally investigate or prosecute any alcohol or drug abuse patient.[facility] the event this information is protected by the Federal Confidentiality of Alcohol and Drug Abuse Patient Records regulations: The Federal rules restrict any use of the information to criminally investigate or prosecute any alcohol or drug abuse patient.[facility] the event this information is protected by the Federal Confidentiality of Alcohol and Drug Abuse Patient Records regulations: The Federal rules restrict any use of the information to criminally investigate or prosecute any alcohol or drug abuse patient.[facility] the event this information is protected by the Federal Confidentiality of Alcohol and Drug Abuse Patient Records regulations: The Federal rules restrict any use of the information to criminally investigate or prosecute any alcohol or drug abuse patient.[facility] the event this information is protected by the Federal Confidentiality of Alcohol and Drug Abuse Patient Records regulations: The Federal rules restrict any use of the information to criminally investigate or prosecute any alcohol or drug abuse patient.[facility]In the event this information is protected by the Federal Confidentiality of Alcohol and Drug Abuse Patient Records regulations: The Federal rules restrict any use of the information to criminally investigate or prosecute any alcohol or drug abuse patient.[facility]In the event this information is protected by the Federal Confidentiality of Alcohol and Drug Abuse Patient Records regulations: The Federal rules restrict any use of the information to criminally investigate or prosecute any alcohol or drug abuse patient.[facility]In the event this information is protected by the Federal Confidentiality of Alcohol and Drug Abuse Patient Records regulations: The Federal rules restrict any use of the information to criminally investigate or prosecute any alcohol or drug abuse patient.[facility]In the event this information is protected by the Federal Confidentiality of Alcohol and Drug Abuse Patient Records regulations: The Federal rules restrict any use of the information to criminally investigate or prosecute any alcohol or drug abuse patient.[facility]In the event this information is protected by the Federal Confidentiality of Alcohol and Drug Abuse Patient Records regulations: The Federal rules restrict any use of the information to criminally investigate or prosecute any alcohol or drug abuse patient.[facility]In the event this information is protected by the Federal Confidentiality of Alcohol and Drug Abuse Patient Records regulations: The Federal rules restrict any use of the information to criminally investigate or prosecute any alcohol or drug abuse patient.[facility]In the event this information is protected by the Federal Confidentiality of Alcohol and Drug Abuse Patient Records regulations: The Federal rules restrict any use of the information to criminally investigate or prosecute any alcohol or drug abuse patient.[facility]In the event this information is protected by the Federal Confidentiality of Alcohol and Drug Abuse Patient Records regulations: The Federal rules restrict any use of the information to criminally investigate or prosecute any alcohol or drug abuse patient.[facility]In the event this information is protected by the Federal Confidentiality of Alcohol and Drug Abuse Patient Records regulations: The Federal rules restrict any use of the information to criminally investigate or prosecute any alcohol or drug abuse patient.[facility]In the event this information is protected by the Federal Confidentiality of Alcohol and Drug Abuse Patient Records regulations: The Federal rules restrict any use of the information to criminally investigate or prosecute any alcohol or drug abuse patient.[facility]In the event this information is protected by the Federal Confidentiality of Alcohol and Drug Abuse Patient Records regulations: The Federal rules restrict any use of the information to criminally investigate or prosecute any alcohol or drug abuse patient.[facility]In the event this information is protected by the Federal Confidentiality of Alcohol and Drug Abuse Patient Records regulations: The Federal rules restrict any use of the information to criminally investigate or prosecute any alcohol or drug abuse patient.[facility]In the event this information is protected by the Federal Confidentiality of Alcohol and Drug Abuse Patient Records regulations: The Federal rules restrict any use of the information to criminally investigate or prosecute any alcohol or drug abuse patient.[facility]In the event this information is protected by the Federal Confidentiality of Alcohol and Drug Abuse Patient Records regulations: The Federal rules restrict any use of the information to criminally investigate or prosecute any alcohol or drug abuse patient.[facility]In the event this information is protected by the Federal Confidentiality of Alcohol and Drug Abuse Patient Records regulations: The Federal rules restrict any use of the information to criminally investigate or prosecute any alcohol or drug abuse patient.[facility]In the event this information is protected by the Federal Confidentiality of Alcohol and Drug Abuse Patient Records regulations: The Federal rules restrict any use of the information to criminally investigate or prosecute any alcohol or drug abuse patient.[facility]In the event this information is protected by the Federal Confidentiality of Alcohol and Drug Abuse Patient Records regulations: The Federal rules restrict any use of the information to criminally investigate or prosecute any alcohol or drug abuse patient.[facility]In the event this information is protected by the Federal Confidentiality of Alcohol and Drug Abuse Patient Records regulations: The Federal rules restrict any use of the information to criminally investigate or prosecute any alcohol or drug abuse patient.[facility]In the event this information is protected by the Federal Confidentiality of Alcohol and Drug Abuse Patient Records regulations: The Federal rules restrict any use of the information to criminally investigate or prosecute any alcohol or drug abuse patient.[facility]In the event this information is protected by the Federal Confidentiality of Alcohol and Drug Abuse Patient Records regulations: The Federal rules restrict any use of the information to criminally investigate or prosecute any alcohol or drug abuse patient.[facility]In the event this information is protected by the Federal Confidentiality of Alcohol and Drug Abuse Patient Records regulations: The Federal rules restrict any use of the information to criminally investigate or prosecute any alcohol or drug abuse patient.[facility]In the event this information is protected by the Federal Confidentiality of Alcohol and Drug Abuse Patient Records regulations: The Federal rules restrict any use of the information to criminally investigate or prosecute any alcohol or drug abuse patient.[facility]In the event this information is protected by the Federal Confidentiality of Alcohol and Drug Abuse Patient Records regulations: The Federal rules restrict any use of the information to criminally investigate or prosecute any alcohol or drug abuse patient.[facility] ClinicIn the event this information is protected by the Federal Confidentiality of Alcohol and Drug Abuse Patient Records regulations: The Federal rules restrict any use of the information to criminally investigate or prosecute any alcohol or drug abuse patient.[facility]In the event this information is protected by the Federal Confidentiality of Alcohol and Drug Abuse Patient Records regulations: The Federal rules restrict any use of the information to criminally investigate or prosecute any alcohol or drug abuse patient.[facility]In the event this information is protected by the Federal Confidentiality of Alcohol and Drug Abuse Patient Records regulations: The Federal rules restrict any use of the information to criminally investigate or prosecute any alcohol or drug abuse patient.[facility]In the event this information is protected by the Federal Confidentiality of Alcohol and Drug Abuse Patient Records regulations: The Federal rules restrict any use of the information to criminally investigate or prosecute any alcohol or drug abuse patient.[facility] HospitalIn the event this information is protected by the Federal Confidentiality of Alcohol and Drug Abuse Patient Records regulations: The Federal rules restrict any use of the information to criminally investigate or prosecute any alcohol or drug abuse patient.[facility] HospitalIn the event this information is protected by the Federal Confidentiality of Alcohol and Drug Abuse Patient Records regulations: The Federal rules restrict any use of the information to criminally investigate or prosecute any alcohol or drug abuse patient.[facility]In the event this information is protected by the Federal Confidentiality of Alcohol and Drug Abuse Patient Records regulations: The Federal rules restrict any use of the information to criminally investigate or prosecute any alcohol or drug abuse patient.[facility] HospitalIn the event this information is protected by the Federal Confidentiality of Alcohol and Drug Abuse Patient Records regulations: The Federal rules restrict any use of the information to criminally investigate or prosecute any alcohol or drug abuse patient.[facility] HospitalIn the event this information is protected by the Federal Confidentiality of Alcohol and Drug Abuse Patient Records regulations: The Federal rules restrict any use of the information to criminally investigate or prosecute any alcohol or drug abuse patient.[facility] HospitalIn the event this information is protected by the Federal Confidentiality of Alcohol and Drug Abuse Patient Records regulations: The Federal rules restrict any use of the information to criminally investigate or prosecute any alcohol or drug abuse patient.[facility] HospitalIn the event this information is protected by the Federal Confidentiality of Alcohol and Drug Abuse Patient Records regulations: The Federal rules restrict any use of the information to criminally investigate or prosecute any alcohol or drug abuse patient.[facility] HospitalIn the event this information is protected by the Federal Confidentiality of Alcohol and Drug Abuse Patient Records regulations: The Federal rules restrict any use of the information to criminally investigate or prosecute any alcohol or drug abuse patient.[facility] HospitalIn the event this information is protected by the Federal Confidentiality of Alcohol and Drug Abuse Patient Records regulations: The Federal rules restrict any use of the information to criminally investigate or prosecute any alcohol or drug abuse patient.[facility] HospitalIn the event this information is protected by the Federal Confidentiality of Alcohol and Drug Abuse Patient Records regulations: The Federal rules restrict any use of the information to criminally investigate or prosecute any alcohol or drug abuse patient.[facility] HospitalIn the event this information is protected by the Federal Confidentiality of Alcohol and Drug Abuse Patient Records regulations: The Federal rules restrict any use of the information to criminally investigate or prosecute any alcohol or drug abuse patient.[facility] HospitalIn the event this information is protected by the Federal Confidentiality of Alcohol and Drug Abuse Patient Records regulations: The Federal rules restrict any use of the information to criminally investigate or prosecute any alcohol or drug abuse patient.[facility] HospitalIn the event this information is protected by the Federal Confidentiality of Alcohol and Drug Abuse Patient Records regulations: The Federal rules restrict any use of the information to criminally investigate or prosecute any alcohol or drug abuse patient.[facility] HospitalIn the event this information is protected by the Federal Confidentiality of Alcohol and Drug Abuse Patient Records regulations: The Federal rules restrict any use of the information to criminally investigate or prosecute any alcohol or drug abuse patient.[facility] HospitalIn the event this information is protected by the Federal Confidentiality of Alcohol and Drug Abuse Patient Records regulations: The Federal rules restrict any use of the information to criminally investigate or prosecute any alcohol or drug abuse patient.[facility] HospitalIn the event this information is protected by the Federal Confidentiality of Alcohol and Drug Abuse Patient Records regulations: The Federal rules restrict any use of the information to criminally investigate or prosecute any alcohol or drug abuse patient.[facility] Reason for Visit (unrecogniz ed section [...] BRNCDILAT RSPSE SPMTRY PRE&POST-BRNCDILAT ADMN Nicole Kenny, PLASTICS PRODUCTION MACHINE OPERATOR.SUPERVISOR MOLD YARD [address] [place] [address] [facility] [place] [address] [place] [address] Referral ID Status Reason Start Date Expiration Date V isits Requested Visits Authorized [id number] Closed Auto-Generate d Referral 03/13/2022 04/12/2023 1 [...] NEW HIGH MDM 60-74 MINUTES Nicole Kenny, PLASTICS PRODUCTION MACHINE OPERATOR.SUPERVISOR MOLD YARD [address] [place] [id number] Referral ID Status Reason Start Date Expiration Date V isits Requested Visits Authorized [id number] Closed PCP Requested Referral 03/13/2022 03/13/2023 1 1 Reason Comments Patient Update Reason Comments F/U 3 Month Reason Comments Mouth/Lip Problem Reason Comments Pain Mouth pain x 1 week Reason Comments Patient Question Reason Comments Established Patient Specialty Diagnoses / Procedures Referred By Donal agarwal Referred To Contact Vascular Surgery Diagnoses PAD (peripheral artery disease) (HCC) Procedures CONSULT TO VASCULAR SURGERY OFFICE/OUTPATIENT NEW HIGH MDM 60-74 MINUTES Ulises Hermosillo MD [address] [place] [address] [address] [place] [address] Referral ID Status Reason Start Date Expiration Date V isits Requested Visits Authorized [id number] Closed PCP Requested Referral 05/11/2022 05/11/2023 1 1 Reason Comments New Patient Hemoptysis Reason Comments Behavioral Health Social Work Reason Comments Shortness of Breath Sent from [facility]. 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 Was sent to [facility] without O2, patient is on 2 L NC routinely Reason Onset Date Comments Population Health Navigation Outreach 04/16/2023 Navigator Kailash amaya [facility] gap outreach Reason Comments Follow Up Blood [...] Care Teams (unrecognized sec tion and content) Telephone Advice Nurse Relationship Specialty Start Date End Date Ulises Hermosillo MD [address] [place], [place] [id number] PCP - General Internal Medicine 01/25/16 Telephone Advice Nurse Relationship Specialty Start Date End Date Ulises Hermosillo MD [address] [place] [address] PCP - General Internal Medicine 01/25/16 Telephone Advice Nurse Relationship Specialty Start Date End Date Ulises Hermosillo MD [address] [place] [address] PCP - General Internal Medicine 01/25/16 Telephone Advice Nurse Relationship Specialty Start Date End Date Ulises Hermosillo MD [address] [place] [address] PCP - General Internal Medicine 01/25/16 Telephone Advice Nurse Relationship Specialty Start Date End Date Ulsies Hermosillo MD [address] [place] [address] PCP - General Internal Medicine 01/25/16 Telephone Advice Nurse Relationship Specialty Start Date End Date Ulises Hermosillo MD [address] [place] [address] PCP - General Internal Medicine 01/25/16 Telephone Advice Nurse Relationship Specialty Start Date End Date Ulises Hermosillo MD [address] [place] [address] PCP - General Internal Medicine 01/25/16 Telephone Advice Nurse Relationship Specialty Start Date End Date Ulises Hermosillo MD [address] [place] [address] PCP - General Internal Medicine 01/25/16 Telephone Advice Nurse Relationship Specialty Start Date End Date Ulises Hermosillo MD [address] [place] [address] PCP - General Internal Medicine 01/25/16 Telephone Advice Nurse Relationship Specialty Start Date End Date Ulises Hermosillo MD [address] [place] [address] PCP - General Internal Medicine 01/25/16 Telephone Advice Nurse Relationship Specialty Start Date End Date Ulises Hermosillo MD [address] [place] [address] PCP - General Internal Medicine 01/25/16 Telephone Advice Nurse Relationship Specialty Start Date End Date Ulises Hermosillo MD [address] [place] [address] PCP - General Internal Medicine 01/25/16 Telephone Advice Nurse Relationship Specialty Start Date End Date Ulises Hermosillo MD [address] [place] [address] PCP - General Internal Medicine 01/25/16 Telephone Advice Nurse Relationship Specialty Start Date End Date Ulises Hermosillo MD [address] [place] [address] PCP - General Internal Medicine 01/25/16 Telephone Advice Nurse Relationship Specialty Start Date End Date Ulises Hermosillo MD [address] [place] [address] PCP - General Internal Medicine 01/25/16 Telephone Advice Nurse Relationship Specialty Start Date End Date Ulises Hermosillo MD [address] [place] [address] PCP - General Internal Medicine 01/25/16 Telephone Advice Nurse Relationship Specialty Start Date End Date Ulises Hermosillo MD [address] [place] [address] PCP - General Internal Medicine 01/25/16 Telephone Advice Nurse Relationship Specialty Start Date End Date Ulises Hermosillo MD [address] [place] [address] PCP - General Internal Medicine 01/25/16 Telephone Advice Nurse Relationship Specialty Start Date End Date Ulises Hermosillo MD [address] [place] [address] PCP - General Internal Medicine 01/25/16 Telephone Advice Nurse Relationship Specialty Start Date End Date Ulises Hermosillo MD [address] [place] [address] PCP - General Internal Medicine 01/25/16 Telephone Advice Nurse Relationship Specialty Start Date End Date Ulises Hermosillo MD [address] [place] [address] PCP - General Internal Medicine 01/25/16 Telephone Advice Nurse Relationship Specialty Start Date End Date Ulises Hermosillo MD [address] [place] [address] PCP - General Internal Medicine 01/25/16 Team [...] MD Admit Provider, Other Provider Active Dr. Siddhartha Teague DO Attending Provider Active Dr. Joel Sauer DO Other Provider Active Telephone Advice Nurse Relationship Specialty Start Date End Date Ulises Hermosillo MD [address] [facility], [place] [id number] PCP - General Internal Medicine 01/25/16 Telephone Advice Nurse Relationship Specialty Start Date End Date Ulises Hermosillo MD [address] [place] [address] PCP - General Internal Medicine 01/25/16 Telephone Advice Nurse Relationship Specialty Start Date End Date Ulises Hermosillo MD [address] [place] [address] PCP - General Internal Medicine 01/25/16 Telephone Advice Nurse Relationship Specialty Start Date End Date Ulises Hermosillo MD [address] [place] [address] PCP - General Internal Medicine 01/25/16 Telephone Advice Nurse Relationship Specialty Start Date End Date Ulises Hermosillo MD [address] [place] [address] PCP - General Internal Medicine 01/25/16 Telephone Advice Nurse Relationship Specialty Start Date End Date Ulises Hermosillo MD [address] [place] [address] PCP - General Internal Medicine 01/25/16 Telephone Advice Nurse Relationship Specialty Start Date End Date Ulises Hermosillo MD [address] [place] [address] PCP - General Internal Medicine 01/25/16 Telephone Advice Nurse Relationship Specialty Start Date End Date Ulises Hermosillo MD [address] [place] [address] PCP - General Internal Medicine 01/25/16 Telephone Advice Nurse Relationship Specialty Start Date End Date Ulises Hermosillo MD [address] [place] [address] PCP - General Internal Medicine 01/25/16 Telephone Advice Nurse Relationship Specialty Start Date End Date Ulises Hermosillo MD [address] [place] [address] PCP - General Internal Medicine 01/25/16 Telephone Advice Nurse Relationship Specialty Start Date End Date Ulises Hermosillo MD [address] [place] [address] PCP - General Internal Medicine 01/25/16 01/14/24 Telephone Advice Nurse Relationship Specialty Start Date End Date Ulises Hermosillo MD [address] [place] [address] PCP - General Internal Medicine 01/25/16 01/14/24 Telephone Advice Nurse Relationship Specialty Start Date End Date Ulises Hermosillo MD [address] [place] [address] PCP - General Internal Medicine 01/25/16 01/14/24 Gabriella Chambers RN [address] [place] [address] Primary Service Internal Medicine 02/27/18 04/26/21 Telephone Advice Nurse Relationship Specialty Start Date End Date Ulises Hermosillo MD [address] [place] [address] PCP - General Internal Medicine 01/25/16 01/14/24 Gabriella Chambers RN [address] [place] [address] Primary Service Internal Medicine 02/27/18 04/26/21 Care Team (unrecognized sect ion and content) Personnel Name: ULISES HERMOSILLO MD Address: Address: [address] [place] [address]- Personnel Name: ULISES HERMOSILLO MD Address: Address: [address] [place] [address]- Care Team Personnel Name: ULISES HERMOSILLO MD Member Role: Primary Care Physician Address: Address: [address] [place] [address]- Name: Yolanda Gonzalez RN Position: RN Member Role: RN Name: ZINA GLOVER DO Position: ED Physician Address: Address: [address] [facility] [place] [address]- [place] Name: BRIAN TRINIDAD DO Position: Resident Member Role: ED Physician Address: Address: [address] [facility] [address]- Care Team Related Persons Name: MELY SERNA Address: Home [address] [place] [address] [place] Name: MELY SERNA Address: Home [address] [place] [address] [place] Name: MELY SERNA Address: Home [address] [place] [address] [place] Name: MELY SERNA Address: Home [address] [place] [address] [place] Name: MELY SERNA Address: Home [address] [place] [address] [place] Name: MELY SERNA Address: Home [address] [place] [address] [place] Name: MELY SERNA Address: Home [address] Care Team Personnel Name: ULISES HERMOSILLO MD Member Role: Primary Care Physician Address: Address: [address] [place] [address]- [place] Name: MD JOSE ROBERTO COMBS MD Position: ED Physician Member Role: ED Physician [facility]: [facility] [address] [place] [address]- [place] Care Team Related Persons Name: MELY SERNA Address: Home [address] [place] [address] [place] Name: MELY SERNA Address: Home [address] [place] [address] [place] Name: MELY SERNA Address: Home [address] [place] [address] [place] Name: MELY SERNA Address: Home [address] [place] [address] [place] Name: MELY SERNA Address: Home [address] [place] [address] [place] Name: MELY SERNA Address: Home [address] [place] [address] [place] Name: MELY SERNA Address: Home [address] Goals (unrecognized section and content) Goals [...] to exceed 1,000 mg (milligrams) per hour. 184 (New Bag - Prov ider: Grace Bean RN)1904 (Stopped - Provider: Grace Bean RN) methylPREDNISolone [...] BE BASED ON THE PRIMARY CLINICAL RECORDS. [employer] [facility]. provides no warranty or guarantee of the accuracy or completeness of information in this document.
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
--- NOTE | 2025-10-16 02:56 | ED.RN ---
This nurse called pts daughter to come get her per pt request. Upodated on why pt was here and pts behaviors towards staff. Pt daughter stating pt has been getting worse lately with mood and behaviors. Pt daughter stating she is working on getting pt out of the [facility] and living with her. Pt daughter expressing numerous concerns about thinking pt has dementia is suppose to be following up with doctor about testing. Pt daughter apologized numerous times for pts behavior and thanked this nurse for taking care of pt.
--- NOTE | 2025-10-16 04:24 | PCA ---
PT CALLING OUT OF ROOM YELLING YOU STUPID BITCHES! YOU BUNCH OF STUPID IDIOTS! YOU LIED YOU NEVER CALLED MY DAUGHTER. THIS [facility] RADAR OPERATOR/NAVIGATOR CALLED PTS DAUGHTER TO GET AN UPDATED ETA ON HER ARRIVAL, DAUGHTER DID NOT ANSWER AND VOICEMAIL IS FULL.
== END 2025-10-16 05:58 | disposition skilled nursing facility (03) ==
PROVIDERS: Emergency Provider Specialist/Technologist Athletic Trainer; Visit Provider Specialist/Technologist Athletic Trainer
DX: R06.02 Shortness of breath (principal); R45.6 Violent behavior; F17.210 Nicotine dependence, cigarettes, uncomplicated
CPT/HCPCS: 99284; A4216

== ENCOUNTER → 2025-10-19 04:00 | Outpatient (REF) | payer MEDICARE, MEDICAID, SELFPAY ==
--- OUTSIDE RECORDS SUMMARY | 2025-10-19 04:19 | XMS RPT_ITS | CCD ---
Author Organization [facility] Care Team Providers Care Screed Person Name Role Phone PROVIDER, UNKNOWN Unavailable Unavailable [...] Ulises Hermosillo MD Primary Care Provider [phone] EMMANUEL KILLIAN Attending Unavailable MODESTA CASTILLO., DR. [...] DO, EMMA M Primary Care Unavailable [employer] CONSULTANT, ELLEN Attending Unavailab lesly FANG MD, DR [...] Facility (1 source) PHENobarbital Drug Allergy 01-05-2023 [facility] (1 source) PHENobarbital Drug Allergy 01-05-2023 [facility] Repository Medications Current Medications Medication Drug Class(es) Dates Sig (Normalized) Sig (Original) albuterol 0.21 mg/ml inhalation solution (20 sources) beta2-Adrenergic Agonist Start: 01-11-2025 take 1 dose by inhalation four times daily albuterol 0.63 mg/3 mL (0.021%) inhalation solution Dose : 0.63 mg = 3 mL, Inhalation, QID, # 90 mL, 1 Refill(s), Pharmacy: [facility]/pharmacy #[id number], 167.6, cm, 01/11/25 11:11:00 EST, [...] wheezing, # 18 gram(s), 11 Refill(s), Pharmacy: [facility]/pharmacy #[id number], COPD with chronic bronchitis, 165.1, cm, 03/04/25 [...] wheezing, # 18 gram(s), 11 Refill(s), Pharmacy: [facility]/pharmacy #[id number], COPD with chronic bronchitis, 165.1, [...] qDay, # 30 tab(s), 11 Refill(s), Pharmacy: [facility]/pharmacy #4605, 165, cm, 11/30/24 9:43:00 EST, [...] qDay, # 90 tab(s), 3 Refill(s), Pharmacy: [facility]/pharmacy #[id number], Stented coronary artery CAD in [place] artery, 162.5, cm, 10/23/24 13:20:00 EST, Height, kg, 10/23/24 13:20:00 EST, Dosing Weight Start Date: 10/23/24 Status: Ordered Medication Dispense Status: Completed Quantity: 90.0 Unit: tab(s) Total Allowed Fills: 4 Fills Dispensed: 0 Indications: Presence of coronary angioplasty implant and graft; Atherosclerotic heart disease of [place] coronary artery without angina pectoris; Start: 05-02-2022 [...] TID, # 90 tab(s), 0 Refill(s), Pharmacy: [facility]/pharmacy #[id number], 165.1, cm, 03/04/25 7:59:00 EDT, [...] cap(s), 0 Refill(s), 05/08/22 11:02:00 EDT, [id number], 165.1, cm, 05/02/22 9:53:00 EDT, Height, 60 Start Date: 05/05/22 Stop Date: 05/08/22 Status: Ordered clopidogrel 75 mg oral tablet (20 sources) [id number] Platelet Inhibitor Start: 10-23-2024 clopi dogrel 75 mg oral tablet Dose : 75 mg = 1 tab(s), Oral, Daily, # 90 tab(s), 3 Refill(s), Pharmacy: [facility]/pharmacy #[id number], 162.5, cm, 10/23/24 13:20:00 EST, [...] Comment on above: Take 1 tablet by [facility] once daily. doxycycline hyclate 100 mg oral [...] 30 tab(s), 0 Refill(s), Pharmacy: [facility], 165.1, cm, 06/12/25 19:25:00 [...] take 1 puff(s) by inhalation once daily dqksyyweope-bcfeprugq-knypiwya (TRELEGY ELLIPTA) 200-62.5-25 mcg inhalation powder Inhale 1 Puff as instructed once daily. 60 Each 11/26/2022 12/26/2022 Active Start: 07-23-2022 End: 11-26-2022 take 1 puff(s) by inhalation once daily rkrtlcnpdja-xalnoqpjg-phzmobfz (TRELEGY ELLIPTA) 200-62.5-25 mcg inhalation powder Inhale 1 Puff as instructed once daily. 60 Each 07/23/2022 11/26/2022 Discontinued Start: 07-23-2022 take 1 puff(s) by inhalation once daily mwfcwczkcgt-gbnurgkwv-kpqegtug (TRELEGY ELLIPTA) 200-62.5-25 mcg inhalation powder Inhale 1 Puff as instructed once daily. 60 Each 07/23/2022 Active Start: 07-23-2022 End: 08-22-2022 take 1 puff(s) by inhalation once daily cfexegysjuh-tdprywdjj-pkvtavhw (TRELEGY ELLIPTA) 200-62.5-25 mcg inhalation powder Inhale 1 Puff as instructed once daily. 60 Each 07/23/2022 08/22/2022 Active Start: 06-06-2022 End: 07-20-2022 take 1 puff(s) by inhalation once daily bbiashippiu-mosvqsocj-mtpgyrhy (TRELEGY ELLIPTA) 200-62.5-25 mcg inhalation powder Inhale 1 Puff as instructed once daily. 60 Each 06/06/2022 07/20/2022 Discontinued Start: 06-06-2022 take 1 puff(s) by inhalation once daily cmitwkoqwha-ffpmrdofx-hbtgehvf (TRELEGY ELLIPTA) 200-62.5-25 mcg inhalation powder Inhale 1 Puff as instructed once daily. 60 Each 06/06/2022 Active Start: 06-06-2022 End: 07-06-2022 take 1 puff(s) by inhalation once daily kmiugqjhavy-nyvbjprtl-vmjpubsr (TRELEGY ELLIPTA) 200-62.5-25 mcg inhalation powder Inhale 1 Puff as instructed once daily. 60 Each 06/06/2022 07/06/2022 Active Comment on above: Inhale 1 Puff as ins tructed once daily. furosemide 40 mg oral tablet (4 sources) Loop Diuretic Start: 06-15-2025 Lasix 40 mg oral tablet Dose : 40 mg = 1 tab(s), Oral, qDay, # 30 tab(s), 0 Refill(s), Pharmacy: [facility], 165.1, cm, 06/12/25 19:25:00 [...] qDay, # 90 cap(s), 3 Refill(s), Pharmacy: [facility]/pharmacy #[id number], GERD (gastroesophageal reflux disease), 162.5, cm, 10/23/24 [...] End: 03-14-2025 prednisone 10mg tab (TAPER) Taper 44-21-95-44-57-68-10-5 mg x 1 day until gone, Oral, qAM, # 18 tab(s), 0 Refill(s), Pharmacy: [facility]/pharmacy #[id number], 165.1, cm, 03/04/25 7:59:00 EDT, [...] tab(s), 0 Refill(s), 05/08/22 11:01:00 EDT, Pharmacy: [facility]/pharmacy #[id number], 165.1, cm, 05/02/22 9:53:00 EDT, Height Start Date: 05/05/22 Stop Date: 05/08/22 Status: Ordered Comment on above: Take two daily for 5 days then one daily for 10 days QUEtiapine 25 mg oral tablet (2 sources) Atypical Antipsychotic Start: 06-15-2025 Seroquel 25 mg oral tablet Dose : 25 mg = 1 tab(s), Oral, qHS, # 30 tab(s), 0 Refill(s), Pharmacy: [facility]/pharmacy #[id number], 165.1, cm, 06/12/25 19:25:00 EDT, [...] qDay, # 30 tab(s), 11 Refill(s), Pharmacy: [facility]/pharmacy #4605, 165, cm, 11/30/24 9:43:00 EST, [...] 180 tab(s), 3 Refill(s), Pharmacy: [facility], 165.1, cm, 06/12/25 19:25:00 EDT, Height, kg, 06/12/25 19:25:00 EDT, Dosing Weight Start Date: 06/15/25 Status: Ordered Medication Dispense Status: Completed Quantity: 180.0 Unit: tab(s) Total Allowed Fills: 4 Fills Dispensed: 0 Start: 01-29-2025 take 1 tablet by sukumar th twice daily Entresto 24 mg-26 mg oral tablet Dose = 1 tab(s), Oral, BID, # 180 tab(s), 3 Refill(s), Pharmacy: [facility]/pharmacy #[id number], 162.5, cm, 01/21/25 13:39:00 EDT, Height, kg, 01/21/25 13:39:00 EDT, Dosing Weight Start Date: 01/29/25 Status: Ordered Quantity: 180.0 Unit: tab(s) Repeat number: 4 Symbicort 160 mcg-4.5 mcg/inh Inhaler (3 sources) Start: 05-05-2022 take 1 dose by inhalation twice daily Symbicort 160 mcg-4.5 mcg/inh Inhaler Dose = 2 puff(s), Inhalation, BID, # 10.2 gram(s), 0 Refill(s), Pharmacy: [facility]/pharmacy #[id number], 165.1, cm, 05/02/22 9:53:00 EDT, Height Start Date: 05/05/22 Status: Ordered traZODone hydrochloride 100 mg oral tablet (20 sources) Serotonin Reuptake Inhibitor Start: 10-23-2024 traZODone 100 mg oral tablet Dose : 100 mg = 1 tab(s), Oral, qHS, # 90 tab(s), 3 Refill(s), Pharmacy: [facility]/pharmacy #4605, Psychophysiologic insomnia, 162.5, cm, 10/23/24 [...] day, # 60 EA, 5 Refill(s), Pharmacy: [facility]/pharmacy #4605, 162.5, cm, 01/21/25 13:39:00 EDT, [...] day, # 60 EA, 5 Refill(s), Pharmacy: [facility]/pharmacy #4605, 162.5, cm, 01/21/25 13:39:00 EDT, [...] Discontinued Start: 07-29-2017 take 1 capsule by [facility] three times daily as needed Hydroxyzine Pamoate (Vistaril) 50 mg capsule Active 50 MG PO 3 TIMES DAILY NEEDED July 28, 2017 11:00pm Comment on above: Take 1 capsule by [facility] three times daily as needed for Anxiety. [...] 30 tab(s), 11 Refill(s), Pharmacy: [facility], 165.1, cm, 06/12/25 19:25:00 [...] release), # 30 tab(s), 11 Refill(s), Pharmacy: [facility]/pharmacy #[id number], 165, cm, 11/30/24 9:43:00 EST, Height, kg, 11/30/24 9:43:00 EST, Dosing Weight Start Date: 11/30/24 Status: Ordered Quantity: 30.0 Unit: tab(s) Repeat number: 12 Start: 02-01-2017 End: 09-27-2021 take 1 tablet by mouth twice daily metoprolol tartrate, short acting, (LOPRESSOR) 25 mg tablet Indications: Essential hypertension Take 1 tablet by mouth twice daily. 60 tablet 5 07/06/2020 09/27/2021 Discontinued nystatin [id number] unt/ml oral suspension (11 sources) Polyene Antifungal [...] Coronary atherosclerosis; Translations: [Atherosclerotic heart disease of [place] coronary artery without angina pectoris] Onset: 1 [...] 10-06-2019 Chronic Other aftercare (1 source) Other senior care (current) drug therapy; Translations: [Other buttermaker (current) drug therapy] Onset: 03-04-2025 Episodic Other aftercare (1 source) Encounter for therapeutic drug level monitoring; Translations: [Encounter for therapeutic drug level monitoring] Onset: 03-04-2025 Episodic Other aftercare (1 source) emt intermediate (current) use of antithrombotics/antip latelets; Translations: [emt intermediate (current) use of antithrombotics/antip latelets] Onset: 03-04-2025 Episodic Other aftercare (1 source) [facility] (current) use of aspirin; Translations: [emt intermediate (current) use of aspirin] Onset: 03-04-2025 Episodic Other aftercare (1 source) [facility] (current) use of inhaled steroids; Translations: [[facility] (current) use of inhaled steroids] Onset: 03-04-2025 [...] width (RBC) [Ratio] 17.0 % High 11.6-14.6 [facility] Comment on above: Order Comment: 108 Performed By: #### L 501.9310, L500.4050, L100.0500, L500.4100, L501.9985, L501.9520 #### [facility] [address] [place], [address] Hematocrit (Bld) [Volume fraction] 36.2 % Low 37-47 [facility] Comment on above: Order Comment: 108 Performed By: #### L [id number], L500.4050, L100.0500, L500.4100, L501.9985, L501.9520 #### [facility] [address] [place], [address] Hemoglobin (Bld) [Mass/Vol] 11.5 g/dL Low 12.0-15.0 [facility] Comment on above: Order Comment: 108 Performed By: #### L 501.9310, L500.4050, L100.0500, L500.4100, L501.9985, L501.9520 #### [facility] [address] [place], [address] MCH (RBC) [Entitic mass] 29.3 pg Normal 27.0-32.0 [facility] Comment on above: Order Comment: 108 Performed By: #### L 501.9310, L500.4050, L100.0500, L500.4100, L501.9985, L501.9520 #### [facility] [address] [place], [address] MCHC (RBC) [Mass/Vol] 31.8 g/dL Low 32-36 [facility] Comment on above: Order Comment: 108 Performed By: #### L 501.9310, L500.4050, L100.0500, L500.4100, L501.9985, L501.9520 #### [facility] [address] [place], [address] MCV (RBC) [Entitic vol] 92.3 fL Normal 81-99 [facility] Comment on above: Order Comment: 108 Performed By: #### L 501.9310, L500.4050, L100.0500, L500.4100, L501.9985, L501.9520 #### [facility] [address] [place], [address] Platelet mean volume (Bld) [Entitic vol] 10.8 fL Normal 6.2-12.0 [facility] Comment on above: Order Comment: 108 Performed By: #### L 501.9310, L500.4050, L100.0500, L500.4100, L501.9985, L501.9520 #### [facility] [address] [place], [address] Platelets (Bld) [#/Vol] 385 10*3/uL Normal 150-450 [facility] Comment on above: Order Comment: 108 Performed By: #### L 501.9310, L500.4050, L100.0500, L500.4100, L501.9985, L501.9520 #### [facility] [address] [place], [address] RBC (Bld) [#/Vol] 3.92 10*6/uL Low 4.2-5.4 [facility] Comment on above: Order Comment: 108 Performed By: #### L 501.9310, L500.4050, L100.0500, L500.4100, L501.9985, L501.9520 #### [facility] [address] [place], [address] RDW SD 57.4 fl High 35.1-43.9 [facility] Comment on above: Order Comment: 108 Performed By: #### L 501.9310, L500.4050, L100.0500, L500.4100, L501.9985, L501.9520 #### [facility] [address] [place], [address] WBC (Bld) [#/Vol] 6.5 10*3/uL Normal 4.4-11.0 [facility] Comment on above: Order Comment: 108 Performed By: #### L 501.9310, L500.4050, L100.0500, L500.4100, L501.9985, L501.9520 #### [facility] [address] [place], [address] Comprehensive Metabolic Prof ilon 07-13-2025 Albumin [Mass/Vol] 3.5 g/dL Normal 3.4-4.8 [facility] Comment on above: Order Comment: 108 Performed By: #### L 501.9310, L500.4050, L100.0500, L500.4100, L501.9985, L501.9520 #### [facility] [address] [place], [address] Albumin/Globulin [Mass ratio] 1.2 {ratio} Normal 0.9-2.4 [facility] Comment on above: Order Comment: 108 Performed By: #### L 501.9310, L500.4050, L100.0500, L500.4100, L501.9985, L501.9520 #### [facility] [address] [place], [address] ALK PHOS 62 U/L Normal 35-104 [facility] Comment on above: Order Comment: 108 Performed By: #### L 501.9310, L500.4050, L100.0500, L500.4100, L501.9985, L501.9520 #### [facility] [address] [place], [address] ALT [Catalytic activity/Vol] U/L Normal <=34 [facility] Comment on above: Order Comment: 108 Performed By: #### L 501.9310, L500.4050, L100.0500, L500.4100, L501.9985, L501.9520 #### [facility] [address] [place], [address] AST [Catalytic activity/Vol] 17 U/L Normal <=31 [facility] Comment on above: Order Comment: 108 Performed By: #### L 501.9310, L500.4050, L100.0500, L500.4100, L501.9985, L501.9520 #### [facility] [address] [place], [address] Bilirubin [Mass/Vol] 0.17 mg/dL Normal 0.00-1.30 [facility] Comment on above: Order Comment: 108 Performed By: #### L 501.9310, L500.4050, L100.0500, L500.4100, L501.9985, L501.9520 #### [facility] [address] [place], [address] BUN/CRE 31.1 RATIO High 10-20 [facility] Comment on above: Order Comment: 108 Performed By: #### L 501.9310, L500.4050, L100.0500, L500.4100, L501.9985, L501.9520 #### [facility] [address] [place], [address] Calcium [Mass/Vol] 9.1 mg/dL Normal 7.6-11.0 [facility] Comment on above: Order Comment: 108 Performed By: #### L 501.9310, L500.4050, L100.0500, L500.4100, L501.9985, L501.9520 #### [facility] [address] [place], [address] Chloride [Moles/Vol] 103 mmol/L Normal 98-108 [facility] Comment on above: Order Comment: 108 Performed By: #### L 501.9310, L500.4050, L100.0500, L500.4100, L501.9985, L501.9520 #### [facility] [address] [place], [address] CO2 [Moles/Vol] 25.7 mmol/L Normal 21.0-32.0 [facility] Comment on above: Order Comment: 108 Performed By: #### L 501.9310, L500.4050, L100.0500, L500.4100, L501.9985, L501.9520 #### [facility] [address] [place], [address] Creatinine [Mass/Vol] 0.85 mg/dL Normal 0.70-1.20 [facility] Comment on above: Order Comment: 108 Performed By: #### L 501.9310, L500.4050, L100.0500, L500.4100, L501.9985, L501.9520 #### [facility] [address] [place], [address] GAP 9 Normal 5-15 [facility] Comment on above: Order Comment: 108 Performed By: #### L 501.9310, L500.4050, L100.0500, L500.4100, L501.9985, L501.9520 #### [facility] [address] [place], [address] GFR/1.73 sq M.predicted among non-blacks MDRD (S/P/Bld) [Vol rate/Area] 74 mL/min/{1.73_m2} Normal >60 [facility] Comment on above: Order Comment: 108 Result Comment: mL/m in/1.73m2 CKD-EPI Creatinine Equation (2020) Performed By: #### L 501.9310, L500.4050, L100.0500, L500.4100, L501.9985, L501.9520 #### [facility] [address] [place], [address] Globulin (S) [Mass/Vol] 3.0 g/dL Normal 2.2-4.2 [facility] Comment on above: Order Comment: 108 Performed By: #### L 501.9310, L500.4050, L100.0500, L500.4100, L501.9985, L501.9520 #### [facility] [address] [place], [address] Glucose [Mass/Vol] 98 mg/dL Normal 70-99 [facility] Comment on above: Order Comment: 108 Performed By: #### L 501.9310, L500.4050, L100.0500, L500.4100, L501.9985, L501.9520 #### [facility] [address] [place], [address] Potassium [Moles/Vol] 4.5 mmol/L Normal 3.3-5.1 [facility] Comment on above: Order Comment: 108 Performed By: #### L 501.9310, L500.4050, L100.0500, L500.4100, L501.9985, L501.9520 #### [facility] [address] [place], [address] Sodium [Moles/Vol] 138 mmol/L Normal 133-145 [facility] Comment on above: Order Comment: 108 Performed By: #### L 501.9310, L500.4050, L100.0500, L500.4100, L501.9985, L501.9520 #### [facility] [address] [place], [address] T PROT 6.4 g/dL Normal 5.9-8.4 [facility] Comment on above: Order Comment: 108 Performed By: #### L 501.9310, L500.4050, L100.0500, L500.4100, L501.9985, L501.9520 #### [facility] [address] [place], [address] Urea nitrogen [Mass/Vol] 27 mg/dL High 4-19 [facility] Comment on above: Order Comment: 108 Performed By: #### L 501.9310, L500.4050, L100.0500, L500.4100, L501.9985, L501.9520 #### [facility] [address] [place], [address] Hemoglobin A1con 07-13-2025 HbA1c (Bld) [Mass fraction] 5.7 % Normal <=5.6 [facility] Comment on above: Order Comment: 108 Result Comment: Norm al < 5.7 % Prediabetic 5.7 - 6.4 % Diabetic >or= 6.5 % Please note range changes. Performed By: #### L 501.9310, L500.4050, L100.0500, L500.4100, L501.9985, L501.9520 #### [facility] [address] [place], [address] Lipid Profileon 07-13-2025 CHOL:HDL 2.44 Normal [facility] Comment on above: Order Comment: 108 Performed By: #### L 501.9310, L500.4050, L100.0500, L500.4100, L501.9985, L501.9520 #### [facility] [address] [place], [address] Cholesterol [Mass/Vol] 127 mg/dL Normal <=200 [facility] Comment on above: Order Comment: 108 Result Comment: Chol esterol level, Desirable <200 mg/dL Borderline high cholesterol 200-239 mg/dL High cholesterol >=240 mg/dL Recommendations of the NCEP Adult Treatment Panel for the following risk-cutoff thresholds for the [place] population. Performed By: #### L 501.9310, L500.4050, L100.0500, L500.4100, L501.9985, L501.9520 #### [facility] [address] [place], [address] Cholesterol in HDL [Mass/Vol] 52 mg/dL Normal [facility] Comment on above: Order Comment: 108 Result Comment: [place] onal Cholesterol Education Program (NCEP) guidelines: <40 mg/dL: Low HDL-cholesterol (major risk factor for CHD) >= 60 mg/dL: High HDL-cholesterol (negative risk factor for CHD) HDL-cholesterol is affected by a number of factors, e.g. smoking, exercise, hormones, sex and age. Performed By: #### L 501.9310, L500.4050, L100.0500, L500.4100, L501.9985, L501.9520 #### [facility] [address] [place], [address] Cholesterol in LDL [Mass/Vol] 52 mg/dL Normal [facility] Comment on above: Order Comment: 108 Result Comment: Bord zhopat=467-370 mg/dL Higher Pbge=836 mg/dL or greater Friedwald Equation for LDL-C Performed By: #### L 501.9310, L500.4050, L100.0500, L500.4100, L501.9985, L501.9520 #### [facility] [address] [place], [address] Cholesterol in VLDL [Mass/Vol] 23 mg/dL Normal 5-40 [facility] Comment on above: Order Comment: 108 Performed By: #### L 501.9310, L500.4050, L100.0500, L500.4100, L501.9985, L501.9520 #### [facility] [address] [place], [place], [address] Triglyceride [Mass/Vol] 113 mg/dL Normal [facility] Comment on above: Order Comment: 108 Result Comment: The drugs N-Acetylcysteine and Metamizole may falsely depress this assay. Normal range: <150 mg/dL Borderline High: 150-199 mg/dL High: 200-499 mg/dL Very High: >500 mg/dL Performed By: #### L 501.9310, L500.4050, L100.0500, L500.4100, L501.9985, L501.9520 #### [facility] [address] [place], [address] T4 Total, Thyroxinon 025 T4 [Mass/Vol] 6.1 ug/dL Normal 4.8-13.9 [facility] Comment on above: Order Comment: 108 Performed By: #### L 501.9310, L500.4050, L100.0500, L500.4100, L501.9985, L501.9520 #### [facility] [address] [place], [place], [id number] Thyroid Stim Hormone (TSH)on 07-13-2025 TSH 3.620 uIU/mL Normal 0.300-4.200 [facility] Comment on above: Order Comment: 108 Performed By: #### L 501.9310, L500.4050, L100.0500, L500.4100, L501.9985, L501.9520 #### [facility] [address] [facility] [place], [place], [id number] .Auto Diffon 07-10-2025 Basophil, Absolute 0.1 10 3/mcL Normal 0.0-0.[address] [facility] Comment on above: Performed By: #### A DIFF, PBNP, TROPHS, CBC, GFR, MDW, ANEU, BMP #### [address] [address] Basophils/100 WBC (Bld) 1.1 % Normal 0.0-2.5 [facility] Comment on above: Performed By: #### A DIFF, PBNP, TROPHS, CBC, GFR, MDW, ANEU, BMP #### [address] [address] Eosinophil, Absolute 0.3 10 3/mcL Normal 0.0-0.7 [facility] Comment on above: Performed By: #### A DIFF, PBNP, TROPHS, CBC, GFR, MDW, ANEU, BMP #### [address] [address] Eosinophils/100 WBC (Bld) 3.2 % Normal 0.0-6.0 [facility] Comment on above: Performed By: #### A DIFF, PBNP, TROPHS, CBC, GFR, MDW, ANEU, BMP #### [address] [address] Lymphocyte, Absolute 2.6 10 3/mcL Normal 0.9-4.3 [facility] Comment on above: Performed By: #### A DIFF, PBNP, TROPHS, CBC, GFR, MDW, ANEU, BMP #### [address] [address] Lymphocytes/100 WBC (Bld) 31.2 % Normal 20.0-40.0 [facility] Comment on above: Performed By: #### A DIFF, PBNP, TROPHS, CBC, GFR, MDW, ANEU, BMP #### [address] [address] Monocyte, Absolute 1.2 10 3/mcL Normal 0.1-1.[address] [facility] Comment on above: Performed By: #### A DIFF, PBNP, TROPHS, CBC, GFR, MDW, ANEU, BMP #### [address] [address] Monocytes/100 WBC (Bld) 13.9 % High 2.0-13.0 [facility] Comment on above: Performed By: #### A DIFF, PBNP, TROPHS, CBC, GFR, MDW, ANEU, BMP #### [address] [address] Neutrophils/100 WBC (Bld) 50.6 % Normal 50.0-75.0 [facility] Comment on above: Performed By: #### A DIFF, PBNP, TROPHS, CBC, GFR, MDW, ANEU, BMP #### [id number] [place], [place] [address] .GFRon 07-10-2025 Estimated Glomerular Filtration Rate 71 ml/min/1.73sqm Normal [facility] Comment on above: Result Comment: Stages [...] TROPHS, CBC, GFR, MDW, ANEU, BMP #### [address] [address] .NEUABSon 07-10-2025 Neutrophil, Absolute 4.2 10 3/mcL Normal 2.3-8.1 [facility] Comment on above: Performed By: #### A DIFF, PBNP, TROPHS, CBC, GFR, MDW, ANEU, BMP #### [id number] [place], [place] [address] CBCon 07-10-2025 Erythrocyte distribution width (RBC) [Ratio] 17.7 % High 11.5-15.5 [facility] Comment on above: Performed By: #### A DIFF, PBNP, TROPHS, CBC, GFR, MDW, ANEU, BMP #### [id number] [place], [place] [address] Hematocrit (Bld) [Volume fraction] 35.3 % Normal 34.0-46.0 [facility] Comment on above: Performed By: #### A DIFF, PBNP, TROPHS, CBC, GFR, MDW, ANEU, BMP #### [address] [address] Hgb 11.4 G/dL Low 12.0-16.0 [facility] Comment on above: Performed By: #### A DIFF, PBNP, TROPHS, CBC, GFR, MDW, ANEU, BMP #### [place] [address] MCH (RBC) [Entitic mass] 29.5 pg Normal 27.0-33.0 [facility] Comment on above: Performed By: #### A DIFF, PBNP, TROPHS, CBC, GFR, MDW, ANEU, BMP #### [address] [address] MCHC 32.4 G/dL Normal 32.0-36.0 [facility] Comment on above: Performed By: #### A DIFF, PBNP, TROPHS, CBC, GFR, MDW, ANEU, BMP #### [address] [address] MCV (RBC) [Entitic vol] 91.1 fL Normal 80.0-99.0 [facility] Comment on above: Performed By: #### A DIFF, PBNP, TROPHS, CBC, GFR, MDW, ANEU, BMP #### [address] [address] Platelet 383 10 3/mcL Normal 150-450 [facility] Comment on above: Performed By: #### A DIFF, PBNP, TROPHS, CBC, GFR, MDW, ANEU, BMP #### [address] [address] Platelet mean volume (Bld) [Entitic vol] 8.4 fL Normal 6.6-10.5 [facility] Comment on above: Performed By: #### A DIFF, PBNP, TROPHS, CBC, GFR, MDW, ANEU, BMP #### [place] [address] RBC 3.87 10 6/mcL Low 4.10-5.30 [facility] Comment on above: Performed By: #### A DIFF, PBNP, TROPHS, CBC, GFR, MDW, ANEU, BMP #### [address] [address] WBC 8.3 10 3/mcL Normal 4.5-10.8 [facility] Comment on above: Performed By: #### A DIFF, PBNP, TROPHS, CBC, GFR, MDW, ANEU, BMP #### [address] [address] CMPon 07-10-2025 ALT [Catalytic activity/Vol] 13 U/L Low 14-59 [facility] Comment on above: Performed By: #### A DIFF, PBNP, TROPHS, CBC, GFR, MDW, ANEU, BMP #### [address] [address] Albumin Level 2.7 G/dL Low 3.4-4.8 [facility] Comment on above: Performed By: #### A DIFF, PBNP, TROPHS, CBC, GFR, MDW, ANEU, BMP #### [address] [address] Albumin/Globulin [Mass ratio] 0.8 {ratio} Low 1.1-2.5 [facility] Comment on above: Performed By: #### A DIFF, PBNP, TROPHS, CBC, GFR, MDW, ANEU, BMP #### [address] [address] ALP [Catalytic activity/Vol] 72 U/L Normal 40-135 [facility] Comment on above: Performed By: #### A DIFF, PBNP, TROPHS, CBC, GFR, MDW, ANEU, BMP #### [address] [address] AST [Catalytic activity/Vol] 15 U/L Normal 10-40 [facility] Comment on above: Performed By: #### A DIFF, PBNP, TROPHS, CBC, GFR, MDW, ANEU, BMP #### [address] [address] Bili Total 0.2 mg/dL Normal 0.2-1.0 [facility] Comment on above: Result Comment: Use of this assay is not recommended for patients undergoing treatment with eltrombopag due to the potential for falsely elevated results. Performed By: #### A DIFF, PBNP, TROPHS, CBC, GFR, MDW, ANEU, BMP #### [address] [address] BUN/Creatinine Ratio 26 ratio Normal 7-[address] [facility] Comment on above: Performed By: #### A DIFF, PBNP, TROPHS, CBC, GFR, MDW, ANEU, BMP #### [place] [address] Calcium [Mass/Vol] 8.6 mg/dL Normal 8.4-10.2 [facility] Comment on above: Performed By: #### A DIFF, PBNP, TROPHS, CBC, GFR, MDW, ANEU, BMP #### [address] [address] Chloride [Moles/Vol] 107 mmol/L Normal 98-[address] [facility] Comment on above: Performed By: #### A DIFF, PBNP, TROPHS, CBC, GFR, MDW, ANEU, BMP #### [address] [address] CO2 [Moles/Vol] 37 mmol/L High 23-31 [facility] Comment on above: Performed By: #### A DIFF, PBNP, TROPHS, CBC, GFR, MDW, ANEU, BMP #### [address] [address] Creatinine [Mass/Vol] 0.88 mg/dL Normal 0.51-0.95 [facility] Comment on above: Performed By: #### A DIFF, PBNP, TROPHS, CBC, GFR, MDW, ANEU, BMP #### [address] [address] Electrolyte Balance 0.0 mEq/L Low 4.0-15.0 [facility] Comment on above: Performed By: #### A DIFF, PBNP, TROPHS, CBC, GFR, MDW, ANEU, BMP #### [address] [address] Globulin 3.4 G/dL Normal 2.7-4.4 [facility] Comment on above: Performed By: #### A DIFF, PBNP, TROPHS, CBC, GFR, MDW, ANEU, BMP #### [address] [address] Glucose [Mass/Vol] 111 mg/dL High 83-110 [facility] Comment on above: Performed By: #### A DIFF, PBNP, TROPHS, CBC, GFR, MDW, ANEU, BMP #### [address] [address] Potassium [Moles/Vol] 4.4 mmol/L Normal 3.5-5.1 [facility] Comment on above: Performed By: #### A DIFF, PBNP, TROPHS, CBC, GFR, MDW, ANEU, BMP #### [address] [address] Sodium [Moles/Vol] 144 mmol/L Normal 136-145 [facility] Comment on above: Performed By: #### A DIFF, PBNP, TROPHS, CBC, GFR, MDW, ANEU, BMP #### [address] [address] Total Protein 6.1 G/dL Low 6.4-8.2 [facility] Comment on above: Performed By: #### A DIFF, PBNP, TROPHS, CBC, GFR, MDW, ANEU, BMP #### [address] [address] Urea nitrogen [Mass/Vol] 23 mg/dL High 7-18 [facility] Comment on above: Performed By: #### A DIFF, PBNP, TROPHS, CBC, GFR, MDW, ANEU, BMP #### [address] [place], [place] [address] LABORATORYOrdered By: SYSTEM SYSTEM on 07-10-2025 Albumin [...] 07-10-2025 Magnesium [Mass/Vol] 2.0 mg/dL Normal 1.8-2.[address] [facility] Comment on above: Performed By: #### A DIFF, PBNP, TROPHS, CBC, GFR, MDW, ANEU, BMP #### [address] [address] .Auto Diffon 07-09-2025 Basophil, Absolute 0.1 10 3/mcL Normal 0.0-0.[address] [facility] Comment on above: Performed By: #### M RSAPCR #### [address] [address] #### CVFLURV #### [address] [address] Basophils/100 WBC (Bld) 0.9 % Normal 0.0-2.5 [facility] Comment on above: Performed By: #### M RSAPCR #### [address] [address] #### CVFLURV #### [address] [address] Eosinophil, Absolute 0.1 10 3/mcL Normal 0.0-0.7 [facility] Comment on above: Performed By: #### M RSAPCR #### [place] [address] #### CVFLURV #### [address] [address] Eosinophils/100 WBC (Bld) 1.3 % Normal 0.0-6.0 [facility] Comment on above: Performed By: #### M RSAPCR #### [place] [address] #### CVFLURV #### [address] [address] Lymphocyte, Absolute 1.3 10 3/mcL Normal 0.9-4.3 [facility] Comment on above: Performed By: #### M RSAPCR #### [place] [address] #### CVFLURV #### [address] [address] Lymphocytes/100 WBC (Bld) 12.9 % Low 20.0-40.0 [facility] Comment on above: Performed By: #### M RSAPCR #### [place] [address] #### CVFLURV #### [address] [address] Monocyte, Absolute 1.1 10 3/mcL Normal 0.1-1.[address] [facility] Comment on above: Performed By: #### M RSAPCR #### [place] [address] #### CVFLURV #### [address] [address] Monocytes/100 WBC (Bld) 11.1 % Normal 2.0-13.0 [facility] Comment on above: Performed By: #### M RSAPCR #### [place] [address] #### CVFLURV #### [address] [address] Neutrophils/100 WBC (Bld) 73.8 % Normal 50.0-75.0 [facility] Comment on above: Performed By: #### M RSAPCR #### [place] [address] #### CVFLURV #### [address] [address] .GFRon 07-09-2025 Estimated Glomerular Filtration Rate 93 ml/min/1.73sqm Normal [facility] Comment on above: Result Comment: Stages [...] results. Performed By: #### M RSAPCR #### [place] [address] #### CVFLURV #### [address] [address] .MDWon 07-09-2025 Monocyte Distribution Width 17.29 Normal 0.00-20.00 [facility] Comment on above: Result Comment: For ED adult patients suspected of sepsis, MDW<=20.0 does not rule out sepsis or risk of sepsis Performed By: #### M RSAPCR #### [place] [address] #### CVFLURV #### [address] [address] .NEUABSon 07-09-2025 Neutrophil, Absolute 7.3 10 3/mcL Normal 2.3-8.1 [facility] Comment on above: Performed By: #### M RSAPCR #### [place] [address] #### CVFLURV #### [address] [address] BMPon 07-09-2025 BUN/Creatinine Ratio 26 ratio Normal 7-[address] [facility] Comment on above: Performed By: #### M RSAPCR #### [place] [address] #### CVFLURV #### [address] [address] Calcium [Mass/Vol] 8.7 mg/dL Normal 8.4-10.2 [facility] Comment on above: Performed By: #### M RSAPCR #### [place] [address] #### CVFLURV #### [place] [address] Chloride [Moles/Vol] 106 mmol/L Normal 98-[address] [facility] Comment on above: Performed By: #### M RSAPCR #### [place] [address] #### CVFLURV #### [address] [address] CO2 [Moles/Vol] 33 mmol/L High 23-31 [facility] Comment on above: Performed By: #### M RSAPCR #### [place] [address] #### CVFLURV #### [address] [address] Creatinine [Mass/Vol] 0.70 mg/dL Normal 0.51-0.95 [facility] Comment on above: Performed By: #### M RSAPCR #### [place] [address] #### CVFLURV #### [address] [address] Electrolyte Balance 1.0 mEq/L Low 4.0-15.0 [facility] Comment on above: Performed By: #### M RSAPCR #### [place] [address] #### CVFLURV #### [address] [address] Glucose [Mass/Vol] 118 mg/dL High 83-110 [facility] Comment on above: Performed By: #### M RSAPCR #### [place] [address] #### CVFLURV #### [address] [address] Potassium [Moles/Vol] 3.8 mmol/L Normal 3.5-5.1 [facility] Comment on above: Performed By: #### M RSAPCR #### [place] [address] #### CVFLURV #### [address] [address] Sodium [Moles/Vol] 140 mmol/L Normal 136-145 [facility] Comment on above: Performed By: #### M RSAPCR #### [place] [address] #### CVFLURV #### [address] [address] Urea nitrogen [Mass/Vol] 18 mg/dL Normal 7-18 [facility] Comment on above: Performed By: #### M RSAPCR #### [place] [address] #### CVFLURV #### [address] [address] CBCon 07-09-2025 Erythrocyte distribution width (RBC) [Ratio] 17.8 % High 11.5-15.5 [facility] Comment on above: Performed By: #### M RSAPCR #### [place] [address] #### CVFLURV #### [address] [address] Hematocrit (Bld) [Volume fraction] 36.6 % Normal 34.0-46.0 [facility] Comment on above: Performed By: #### M RSAPCR #### [place] [address] #### CVFLURV #### [address] [address] Hgb 11.9 G/dL Low 12.0-16.0 [facility] Comment on above: Performed By: #### M RSAPCR #### [place] [address] #### CVFLURV #### [address] [address] MCH (RBC) [Entitic mass] 29.5 pg Normal 27.0-33.0 [facility] Comment on above: Performed By: #### M RSAPCR #### [place] [address] #### CVFLURV #### [place] [address] MCHC 32.6 G/dL Normal 32.0-36.0 [facility] Comment on above: Performed By: #### M RSAPCR #### [place] [address] #### CVFLURV #### [address] [address] MCV (RBC) [Entitic vol] 90.5 fL Normal 80.0-99.0 [facility] Comment on above: Performed By: #### M RSAPCR #### [place] [address] #### CVFLURV #### [address] [address] Platelet 406 10 3/mcL Normal 150-450 [facility] Comment on above: Performed By: #### M RSAPCR #### [place] [address] #### CVFLURV #### [place] [address] Platelet mean volume (Bld) [Entitic vol] 7.7 fL Normal 6.6-10.5 [facility] Comment on above: Performed By: #### M RSAPCR #### [place] [address] #### CVFLURV #### [place] [address] RBC 4.04 10 6/mcL Low 4.10-5.30 [facility] Comment on above: Performed By: #### M RSAPCR #### [place] [address] #### CVFLURV #### [place] [address] WBC 9.9 10 3/mcL Normal 4.5-10.8 [facility] Comment on above: Performed By: #### M RSAPCR #### [place] [address] #### CVFLURV #### [place] [address] CVFLURVon 07-09-2025 FLU A PCR Negative Normal Negative [facility] Comment on above: Performed By: #### C VFLURV #### [place] [address] FLU B PCR Negative Normal Negative [facility] Comment on above: Performed By: #### C VFLURV #### [place] [address] RSV PCR Negative Normal Negative [facility] Comment on above: Performed By: #### C VFLURV #### [place] [address] SARS-CoV-2 (COVID-19) RNA IVANA+probe Ql (Unsp spec) Negative Normal Negative [facility] Comment on above: Result Comment: Resu [...] Performed By: #### C VFLURV #### [place] [address] LABORATORYOrdered By: SYSTEM SYSTEM on 07-09-2025 Basophils [...] ng/L Male: 0-76 ng/L Testing performed on [employer] using a homogeneous sandwich chemiluminescent immunoassay based on [email or web address] technology. Urea nitrogen [Mass/Vol] 18 mg/dL Normal [...] Sensitivity Troponin I 18 ng/L Normal 0-51 [facility] Comment on above: Result Comment: High Sensitive Troponin I Reference Ranges: Female: 0-51 ng/L Male: 0-76 ng/L Testing performed on [employer] using a homogeneous sandwich chemiluminescent immunoassay based on [email or web address] technology. Performed By: #### M RSAPCR #### [address] [address] #### CVFLURV #### [facility] [address] [place], [place] [address] XR KNEE THREE VIEWS RIGHTon 07-09-2025 XR [...] 6:11:06 AM Ordering Provider: BRIAN TRINIDAD Normal [facility] .Auto Diffon 06-15-2025 Basophil, Absolute 0.1 10 3/mcL Normal 0.0-0.3 [facility] Comment on above: Performed By: #### M G, CBC, GFR, ADIFF, BMP, ANEU #### [address] [address] Basophils/100 WBC (Bld) 1.4 % Normal 0.0-2.5 [facility] Comment on above: Performed By: #### M G, CBC, GFR, ADIFF, BMP, ANEU #### [address] [address] Eosinophil, Absolute 0.2 10 3/mcL Normal 0.0-0.7 [facility] Comment on above: Performed By: #### M G, CBC, GFR, ADIFF, BMP, ANEU #### [address] [address] Eosinophils/100 WBC (Bld) 3.8 % Normal 0.0-6.0 [facility] Comment on above: Performed By: #### M G, CBC, GFR, ADIFF, BMP, ANEU #### [address] [address] Lymphocyte, Absolute 2.2 10 3/mcL Normal 0.9-4.3 [facility] Comment on above: Performed By: #### M G, CBC, GFR, ADIFF, BMP, ANEU #### [address] [address] Lymphocytes/100 WBC (Bld) 39.1 % Normal 20.0-40.0 [facility] Comment on above: Performed By: #### M G, CBC, GFR, ADIFF, BMP, ANEU #### [address] [address] Monocyte, Absolute 0.8 10 3/mcL Normal 0.1-1.4 [facility] Comment on above: Performed By: #### M G, CBC, GFR, ADIFF, BMP, ANEU #### [address] [address] Monocytes/100 WBC (Bld) 14.1 % High 2.0-13.0 [facility] Comment on above: Performed By: #### M G, CBC, GFR, ADIFF, BMP, ANEU #### [address] [address] Neutrophils/100 WBC (Bld) 41.6 % Low 50.0-75.0 [facility] Comment on above: Performed By: #### M G, CBC, GFR, ADIFF, BMP, ANEU #### [address] [address] .GFRon 06-15-2025 Estimated Glomerular Filtration Rate 69 ml/min/1.73sqm Normal [facility] Comment on above: Result Comment: [...] G, CBC, GFR, ADIFF, BMP, ANEU #### [place] [address] .NEUABSon 06-15-2025 Neutrophil, Absolute 2.3 10 3/mcL Normal 2.3-8.1 [facility] Comment on above: Performed By: #### M G, CBC, GFR, ADIFF, BMP, ANEU #### [place] [id number] BMPon 06-15-2025 BUN/Creatinine Ratio 27.8 ratio High 10.0-22.0 [facility] Comment on above: Performed By: #### M G, CBC, GFR, ADIFF, BMP, ANEU #### [place] [address] Calcium [Mass/Vol] 8.6 mg/dL Low 8.7-10.4 [facility] Comment on above: Performed By: #### M G, CBC, GFR, ADIFF, BMP, ANEU #### [place] [address] Chloride [Moles/Vol] 107 mmol/L Normal 98-110 [facility] Comment on above: Performed By: #### M G, CBC, GFR, ADIFF, BMP, ANEU #### [address] [address] CO2 [Moles/Vol] 34 mmol/L High 22-32 [facility] Comment on above: Performed By: #### M G, CBC, GFR, ADIFF, BMP, ANEU #### [address] [address] Creatinine [Mass/Vol] 0.90 mg/dL Normal 0.50-1.20 [facility] Comment on above: Result Comment: Test ing performed on Pick a Student analyzer using enzymatic creatinine methodology. Performed By: #### M G, CBC, GFR, ADIFF, BMP, ANEU #### [address] [address] Electrolyte Balance 5.0 mEq/L Normal 4.0-15.0 [facility] Comment on above: Performed By: #### M G, CBC, GFR, ADIFF, BMP, ANEU #### [address] [address] Glucose [Mass/Vol] 126 mg/dL High 82-115 [facility] Comment on above: Performed By: #### M G, CBC, GFR, ADIFF, BMP, ANEU #### [address] [address] Potassium [Moles/Vol] 4.1 mmol/L Normal 3.5-5.0 [facility] Comment on above: Performed By: #### M G, CBC, GFR, ADIFF, BMP, ANEU #### [address] [address] Sodium [Moles/Vol] 146 mmol/L High 136-145 [facility] Comment on above: Performed By: #### M G, CBC, GFR, ADIFF, BMP, ANEU #### [address] [address] Urea nitrogen [Mass/Vol] 25.0 mg/dL High 8.0-22.0 [facility] Comment on above: Performed By: #### M G, CBC, GFR, ADIFF, BMP, ANEU #### [address] [address] CBCon 06-15-2025 Erythrocyte distribution width (RBC) [Ratio] 17.8 % High 11.5-15.5 [facility] Comment on above: Performed By: #### M G, CBC, GFR, ADIFF, BMP, ANEU #### [place] [address] Hematocrit (Bld) [Volume fraction] 34.8 % Normal 34.0-46.0 [facility] Comment on above: Performed By: #### M G, CBC, GFR, ADIFF, BMP, ANEU #### [place] [address] Hgb 11.4 G/dL Low 12.0-16.0 [facility] Comment on above: Performed By: #### M G, CBC, GFR, ADIFF, BMP, ANEU #### [place] [address] MCH (RBC) [Entitic mass] 30.1 pg Normal 27.0-33.0 [facility] Comment on above: Performed By: #### M G, CBC, GFR, ADIFF, BMP, ANEU #### [place] [address] MCHC 32.7 G/dL Normal 32.0-36.0 [facility] Comment on above: Performed By: #### M G, CBC, GFR, ADIFF, BMP, ANEU #### [place] [address] MCV (RBC) [Entitic vol] 91.8 fL Normal 80.0-99.0 [facility] Comment on above: Performed By: #### M G, CBC, GFR, ADIFF, BMP, ANEU #### [place] [address] Platelet 346 10 3/mcL Normal 150-450 [facility] Comment on above: Performed By: #### M G, CBC, GFR, ADIFF, BMP, ANEU #### [place] [address] Platelet mean volume (Bld) [Entitic vol] 8.7 fL Normal 6.6-10.5 [facility] Comment on above: Performed By: #### M G, CBC, GFR, ADIFF, BMP, ANEU #### [place] [address] [address] [place] [address] RBC 3.79 10 6/mcL Low 4.10-5.30 [facility] Comment on above: Performed By: #### M G, CBC, GFR, ADIFF, BMP, ANEU #### [place] [address] [address] [place] [address] WBC 5.6 10 3/mcL Normal 4.5-10.8 [facility] Comment on above: Performed By: #### M G, CBC, GFR, ADIFF, BMP, ANEU #### [address] [address] LABORATORYOrdered By: SYSTEM SYSTEM on 06-15-2025 Basophils [...] above: Interpretive Data: T esting performed on Pick [employer] Student analyzer using enzymatic creatinine methodology. Electrolyte Balance [...] 06-15-2025 Magnesium [Mass/Vol] 1.8 mg/dL Normal 1.6-2.4 [facility] Comment on above: Performed By: #### M G, CBC, GFR, ADIFF, BMP, ANEU #### [address] [address] .GFRon 06-14-2025 Estimated Glomerular Filtration Rate 62 ml/min/1.73sqm Normal [facility] Comment on above: Result Comment: [...] results. Performed By: #### T ARIELLE #### [address] [address] BMPon 06-14-2025 BUN/Creatinine Ratio 26.5 ratio High 10.0-22.0 [facility] Comment on above: Performed By: #### T GOMEZ #### [address] [address] Calcium [Mass/Vol] 8.1 mg/dL Low 8.7-10.4 [facility] Comment on above: Performed By: #### T GOMEZ #### [address] [address] Chloride [Moles/Vol] 104 mmol/L Normal 98-110 [facility] Comment on above: Performed By: #### T GOMEZ #### [address] [address] CO2 [Moles/Vol] 33 mmol/L High 22-32 [facility] Comment on above: Performed By: #### T GOMEZ #### [place] [id number] Creatinine [Mass/Vol] 0.98 mg/dL Normal 0.50-1.20 [facility] Comment on above: Result Comment: Test ing performed on Pick a Student analyzer using enzymatic creatinine methodology. Performed By: #### T GOMEZ #### [address] [address] Electrolyte Balance 8.0 mEq/L Normal 4.0-15.0 [facility] Comment on above: Performed By: #### T GOMEZ #### [address] [address] Glucose [Mass/Vol] 118 mg/dL High 82-115 [facility] Comment on above: Performed By: #### T GOMEZ #### [place] [id number] Potassium [Moles/Vol] 4.2 mmol/L Normal 3.5-5.0 [facility] Comment on above: Result Comment: Spec imen slightly hemolyzed. Performed By: #### T GOMEZ #### [place] [id number] Sodium [Moles/Vol] 145 mmol/L Normal 136-145 [facility] Comment on above: Performed By: #### T GOMEZ #### [place] [id number] Urea nitrogen [Mass/Vol] 26.0 mg/dL High 8.0-22.0 [facility] Comment on above: Performed By: #### T [facility] #### [place] [address] LABORATORYOrdered By: SYSTEM SYSTEM on 06-14-2025 Calcium [...] above: Interpretive Data: T esting performed on Pick a Student analyzer using enzymatic creatinine methodology. Electrolyte Balance [...] 06-14-2025 Magnesium [Mass/Vol] 1.9 mg/dL Normal 1.6-2.4 [facility] Comment on above: Performed By: #### T GOMEZ #### [address] [address] XR CHEST 1 VIEWon 06-14-2025 XR CHEST [...] 06/14/2025 10:24:03 AM Ordering Provider: JOAN Rivero [facility] .Auto Diffon 06-13-2025 Basophil, Absolute 0.0 10 3/mcL Normal 0.0-0.3 [facility] Comment on above: Performed By: #### T GOMEZ #### [address] [address] Basophils/100 WBC (Bld) 0.4 % Normal 0.0-2.5 [facility] Comment on above: Performed By: #### T GOMEZ #### [address] [address] Eosinophil, Absolute 0.0 10 3/mcL Normal 0.0-0.7 [facility] Comment on above: Performed By: #### T GOMEZ #### [address] [address] Eosinophils/100 WBC (Bld) 0.0 % Normal 0.0-6.0 [facility] Comment on above: Performed By: #### T GOMEZ #### [facility] [address] [place] [address] Lymphocyte, Absolute 0.4 10 3/mcL Low 0.9-4.3 [facility] Comment on above: Performed By: #### T GOMEZ #### [address] [address] Lymphocytes/100 WBC (Bld) 12.3 % Low 20.0-40.0 [facility] Comment on above: Performed By: #### T GOMEZ #### [address] [address] Monocyte, Absolute 0.2 10 3/mcL Normal 0.1-1.4 [facility] Comment on above: Performed By: #### T GOMEZ #### [address] [address] Monocytes/100 WBC (Bld) 6.6 % Normal 2.0-13.0 [facility] Comment on above: Performed By: #### T GOMEZ #### [address] [address] Neutrophils/100 WBC (Bld) 80.7 % High 50.0-75.0 [facility] Comment on above: Performed By: #### T GOMEZ #### [address] [address] .GFRon 06-13-2025 Estimated Glomerular Filtration Rate 68 ml/min/1.73sqm Normal [facility] Comment on above: Result Comment: [...] results. Performed By: #### T GOMEZ #### [address] [address] .NEUABSon 06-13-2025 Neutrophil, Absolute 2.6 10 3/mcL Normal 2.3-8.1 [facility] Comment on above: Performed By: #### T GOMEZ #### [address] [address] BMPon 06-13-2025 BUN/Creatinine Ratio 18.7 ratio Normal 10.0-22.0 [facility] Comment on above: Performed By: #### T GOMEZ #### [address] [address] Calcium [Mass/Vol] 8.3 mg/dL Low 8.7-10.4 [facility] Comment on above: Performed By: #### T GOMEZ #### [address] [address] Chloride [Moles/Vol] 101 mmol/L Normal 98-110 [facility] Comment on above: Performed By: #### T GOMEZ #### [address] [address] CO2 [Moles/Vol] 34 mmol/L High 22-32 [facility] Comment on above: Performed By: #### T GOMEZ #### [address] [address] Creatinine [Mass/Vol] 0.91 mg/dL Normal 0.50-1.20 [facility] Comment on above: Result Comment: Test ing performed on [employer] analyzer using enzymatic creatinine methodology. Performed By: #### T GOMEZ #### [address] [address] Electrolyte Balance 9.0 mEq/L Normal 4.0-15.0 [facility] Comment on above: Performed By: #### T GOMEZ #### [place] [id number] Glucose [Mass/Vol] 125 mg/dL High 82-115 [facility] Comment on above: Performed By: #### T GOMEZ #### [place] [id number] Potassium [Moles/Vol] 3.6 mmol/L Normal 3.5-5.0 [facility] [facility] Comment on above: Performed By: #### T GOMEZ #### [place] [id number] Sodium [Moles/Vol] 144 mmol/L Normal 136-145 [facility] Comment on above: Performed By: #### T GOMEZ #### [place] [id number] Urea nitrogen [Mass/Vol] 17.0 mg/dL Normal 8.0-22.0 [facility] Comment on above: Performed By: #### T GOMEZ #### [place] [address] CBCon 06-13-2025 Erythrocyte distribution width (RBC) [Ratio] 17.4 % High 11.5-15.5 [facility] Comment on above: Performed By: #### T GOMEZ #### [place] [id number] Hematocrit (Bld) [Volume fraction] 37.9 % Normal 34.0-46.0 [facility] Comment on above: Performed By: #### T GOMEZ #### [place] [address] Hgb 12.3 G/dL Normal 12.0-16.0 [facility] Comment on above: Performed By: #### T GOMEZ #### [place] [id number] MCH (RBC) [Entitic mass] 29.3 pg Normal 27.0-33.0 [facility] Comment on above: Performed By: #### T GOMEZ #### [place] [id number] MCHC 32.5 G/dL Normal 32.0-36.0 [facility] Comment on above: Performed By: #### T GOMEZ #### [address] [address] MCV (RBC) [Entitic vol] 90.3 fL Normal 80.0-99.0 [facility] Comment on above: Performed By: #### T GOMEZ #### [place] [id number] Platelet 452 10 3/mcL High 150-450 [facility] Comment on above: Performed By: #### T GOMEZ #### [place] [address] Platelet mean volume (Bld) [Entitic vol] 8.7 fL Normal 6.6-10.5 [facility] Comment on above: Performed By: #### T GOMEZ #### [place] [address] RBC 4.20 10 6/mcL Normal 4.10-5.30 [facility] Comment on above: Performed By: #### T GOMEZ #### [place] [address] WBC 3.2 10 3/mcL Low 4.5-10.8 [facility] Comment on above: Performed By: #### T GOMEZ #### [place] [address] LABORATORYOrdered By: SYSTEM SYSTEM on 06-13-2025 Troponin I.cardiac DL <= 0.01 ng/mL [Mass/Vol] 17 ng/L Normal 0 - 34 ng/L ADM SS Comment on above: Interpretive Data: High Sensitive Troponin I Reference Ranges: Female: 0-34 ng/L Male: 0-54 ng/L Testing performed on MarginLeft analyzer using direct chemiluminescent technology. Basophils (Bld) [...] above: Interpretive Data: T esting performed on Pick a Student analyzer using enzymatic creatinine methodology. Electrolyte Balance [...] 06-13-2025 Magnesium [Mass/Vol] 1.8 mg/dL Normal 1.6-2.4 [facility] Comment on above: Performed By: #### T [facility] #### [address] 06-13-2025 High Sensitivity Troponin I 17 ng/L Normal 0-34 [facility] Comment on above: Result Comment: High Sensitive Troponin I Reference Ranges: Female: 0-34 ng/L Male: 0-54 ng/L Testing performed on [email or web address] IM analyzer using direct chemiluminescent technology. Performed By: #### T [facility] #### [address] [address] .Auto Diffon 06-12-2025 Basophil, Absolute 0.1 10 3/mcL Normal 0.0-0.[address] [facility] Comment on above: Performed By: #### A DIFF, PBNP, TROPHS, CBC, GFR, MDW, ANEU, BMP #### [address] [address] Basophils/100 WBC (Bld) 1.0 % Normal 0.0-2.5 [facility] Comment on above: Performed By: #### A DIFF, PBNP, TROPHS, CBC, GFR, MDW, ANEU, BMP #### [address] [address] Eosinophil, Absolute 0.1 10 3/mcL Normal 0.0-0.7 [facility] Comment on above: Performed By: #### A DIFF, PBNP, TROPHS, CBC, GFR, MDW, ANEU, BMP #### [address] [address] Eosinophils/100 WBC (Bld) 1.3 % Normal 0.0-6.0 [facility] Comment on above: Performed By: #### A DIFF, PBNP, TROPHS, CBC, GFR, MDW, ANEU, BMP #### [address] [address] Lymphocyte, Absolute 2.0 10 3/mcL Normal 0.9-4.3 [facility] Comment on above: Performed By: #### A DIFF, PBNP, TROPHS, CBC, GFR, MDW, ANEU, BMP #### [address] [address] Lymphocytes/100 WBC (Bld) 25.0 % Normal 20.0-40.0 [facility] Comment on above: Performed By: #### A DIFF, PBNP, TROPHS, CBC, GFR, MDW, ANEU, BMP #### [address] [place], [place] [address] Monocyte, Absolute 0.9 10 3/mcL Normal 0.1-1.[address] [facility] Comment on above: Performed By: #### A DIFF, PBNP, TROPHS, CBC, GFR, MDW, ANEU, BMP #### [address] [address] Monocytes/100 WBC (Bld) 11.3 % Normal 2.0-13.0 [facility] Comment on above: Performed By: #### A DIFF, PBNP, TROPHS, CBC, GFR, MDW, ANEU, BMP #### [address] [address] Neutrophils/100 WBC (Bld) 61.4 % Normal 50.0-75.0 [facility] Comment on above: Performed By: #### A DIFF, PBNP, TROPHS, CBC, GFR, MDW, ANEU, BMP #### [address] [address] .GFRon 06-12-2025 Estimated Glomerular Filtration Rate 87 ml/min/1.73sqm [facility] Comment on above: Result Comment: Stages of [...] the eGFR results. Performed By: #### T [facility] #### [facility] [address] [place] [address] Estimated Glomerular Filtration Rate 79 ml/min/1.73sqm Normal [facility] Comment on above: Result Comment: Stages [...] TROPHS, CBC, GFR, MDW, ANEU, BMP #### [address] [address] .MDWon 06-12-2025 Monocyte Distribution Width 17.54 Normal 0.00-20.00 [facility] Comment on above: Result Comment: For ED adult patients suspected of sepsis, MDW<=20.0 does not rule out sepsis or risk of sepsis Performed By: #### A DIFF, PBNP, TROPHS, CBC, GFR, MDW, ANEU, BMP #### [address] [address] .NEUABSon 06-12-2025 Neutrophil, Absolute 5.0 10 3/mcL Normal 2.3-8.1 [facility] Comment on above: Performed By: #### A DIFF, PBNP, TROPHS, CBC, GFR, MDW, ANEU, BMP #### [address] [address] BMPon 06-12-2025 BUN/Creatinine Ratio 16.2 ratio Normal 10.0-22.0 [facility] Comment on above: Performed By: #### T ARIELLE #### [address] [address] Calcium [Mass/Vol] 8.6 mg/dL Low 8.7-10.4 [facility] Comment on above: Performed By: #### T ARIELLE #### [address] [address] Chloride [Moles/Vol] 103 mmol/L Normal 98-110 [facility] Comment on above: Performed By: #### T GOMEZ #### [address] [address] CO2 [Moles/Vol] 30 mmol/L Normal 22-32 [facility] Comment on above: Performed By: #### T GOMEZ #### [address] [address] Creatinine [Mass/Vol] 0.74 mg/dL Normal 0.50-1.20 [facility] Comment on above: Result Comment: Test ing performed on Pick a Student analyzer using enzymatic creatinine methodology. Performed By: #### T GOMEZ #### [place] [id number] Electrolyte Balance 10.0 mEq/L Normal 4.0-15.0 [facility] Comment on above: Performed By: #### T GOMEZ #### [place] [id number] Glucose [Mass/Vol] 124 mg/dL High 82-115 [facility] Comment on above: Performed By: #### T GOMEZ #### [place] [id number] Potassium [Moles/Vol] 3.8 mmol/L Normal 3.5-5.0 [facility] Comment on above: Performed By: #### T GOMEZ #### [place] [id number] Sodium [Moles/Vol] 143 mmol/L Normal 136-145 [facility] Comment on above: Performed By: #### T GOMEZ #### [place] [id number] Urea nitrogen [Mass/Vol] 12.0 mg/dL Normal 8.0-22.0 [facility] Comment on above: Performed By: #### T GOMEZ #### [address] [address] CBCon 06-12-2025 Erythrocyte distribution width (RBC) [Ratio] 18.1 % High 11.5-15.5 [facility] Comment on above: Performed By: #### A DIFF, PBNP, TROPHS, CBC, GFR, MDW, ANEU, BMP #### [address] [address] Hematocrit (Bld) [Volume fraction] 44.2 % Normal 34.0-46.0 [facility] Comment on above: Performed By: #### A DIFF, PBNP, TROPHS, CBC, GFR, MDW, ANEU, BMP #### [place] [id number] [place], [place] [address] Hgb 13.8 G/dL Normal 12.0-16.0 [facility] Comment on above: Performed By: #### A DIFF, PBNP, TROPHS, CBC, GFR, MDW, ANEU, BMP #### [address] [address] MCH (RBC) [Entitic mass] 29.3 pg Normal 27.0-33.0 [facility] Comment on above: Performed By: #### A DIFF, PBNP, TROPHS, CBC, GFR, MDW, ANEU, BMP #### [address] [address] MCHC 31.2 G/dL Low 32.0-36.0 [facility] Comment on above: Performed By: #### A DIFF, PBNP, TROPHS, CBC, GFR, MDW, ANEU, BMP #### [address] [address] MCV (RBC) [Entitic vol] 93.7 fL Normal 80.0-99.0 [facility] Comment on above: Performed By: #### A DIFF, PBNP, TROPHS, CBC, GFR, MDW, ANEU, BMP #### [address] [address] Platelet 455 10 3/mcL High 150-450 [facility] Comment on above: Performed By: #### A DIFF, PBNP, TROPHS, CBC, GFR, MDW, ANEU, BMP #### [address] [address] Platelet mean volume (Bld) [Entitic vol] 8.3 fL Normal 6.6-10.5 [facility] Comment on above: Performed By: #### A DIFF, PBNP, TROPHS, CBC, GFR, MDW, ANEU, BMP #### [address] [address] RBC 4.71 10 6/mcL Normal 4.10-5.30 [facility] Comment on above: Performed By: #### A DIFF, PBNP, TROPHS, CBC, GFR, MDW, ANEU, BMP #### [address] [address] WBC 8.2 10 3/mcL Normal 4.5-10.8 [facility] Comment on above: Performed By: #### A DIFF, PBNP, TROPHS, CBC, GFR, MDW, ANEU, BMP #### [address] [address] CMPon 06-12-2025 Albumin Level 3.1 G/dL Low 3.4-4.8 [facility] Comment on above: Performed By: #### A DIFF, PBNP, TROPHS, CBC, GFR, MDW, ANEU, BMP #### [address] [address] Albumin/Globulin [Mass ratio] 0.8 {ratio} Low 1.1-2.5 [facility] Comment on above: Performed By: #### A DIFF, PBNP, TROPHS, CBC, GFR, MDW, ANEU, BMP #### [address] [address] ALP [Catalytic activity/Vol] 108 U/L Normal 40-135 [facility] Comment on above: Performed By: #### A DIFF, PBNP, TROPHS, CBC, GFR, MDW, ANEU, BMP #### [address] [address] ALT [Catalytic activity/Vol] 21 U/L Normal 14-59 [facility] Comment on above: Performed By: #### A DIFF, PBNP, TROPHS, CBC, GFR, MDW, ANEU, BMP #### [address] [address] AST [Catalytic activity/Vol] 32 U/L Normal 10-40 [facility] Comment on above: Performed By: #### A DIFF, PBNP, TROPHS, CBC, GFR, MDW, ANEU, BMP #### [address] [address] Bili Total 0.4 mg/dL Normal 0.2-1.0 [facility] Comment on above: Result Comment: Use of this assay is not recommended for patients undergoing treatment with eltrombopag due to the potential for falsely elevated results. Performed By: #### A DIFF, PBNP, TROPHS, CBC, GFR, MDW, ANEU, BMP #### [place] [address] BUN/Creatinine Ratio 16 ratio Normal 7-[address] [facility] Comment on above: Performed By: #### A DIFF, PBNP, TROPHS, CBC, GFR, MDW, ANEU, BMP #### [address] [address] Calcium [Mass/Vol] 8.9 mg/dL Normal 8.4-10.2 [facility] Comment on above: Performed By: #### A DIFF, PBNP, TROPHS, CBC, GFR, MDW, ANEU, BMP #### [address] [address] Chloride [Moles/Vol] 106 mmol/L Normal 98-[address] [facility] Comment on above: Performed By: #### A DIFF, PBNP, TROPHS, CBC, GFR, MDW, ANEU, BMP #### [address] [address] CO2 [Moles/Vol] 28 mmol/L Normal 23-31 [facility] Comment on above: Performed By: #### A DIFF, PBNP, TROPHS, CBC, GFR, MDW, ANEU, BMP #### [address] [address] Creatinine [Mass/Vol] 0.80 mg/dL Normal 0.51-0.95 [facility] Comment on above: Performed By: #### A DIFF, PBNP, TROPHS, CBC, GFR, MDW, ANEU, BMP #### [address] [address] Electrolyte Balance 7.0 mEq/L Normal 4.0-15.0 [facility] Comment on above: Performed By: #### A DIFF, PBNP, TROPHS, CBC, GFR, MDW, ANEU, BMP #### [address] [address] Globulin 4.1 G/dL Normal 2.7-4.4 [facility] Comment on above: Performed By: #### A DIFF, PBNP, TROPHS, CBC, GFR, MDW, ANEU, BMP #### [address] [address] Glucose [Mass/Vol] 183 mg/dL High 83-110 [facility] Comment on above: Performed By: #### A DIFF, PBNP, TROPHS, CBC, GFR, MDW, ANEU, BMP #### [address] [address] Potassium [Moles/Vol] 5.1 mmol/L Normal 3.5-5.1 [facility] Comment on above: Performed By: #### A DIFF, PBNP, TROPHS, CBC, GFR, MDW, ANEU, BMP #### [address] [address] Sodium [Moles/Vol] 141 mmol/L Normal 136-145 [facility] Comment on above: Performed By: #### A DIFF, PBNP, TROPHS, CBC, GFR, MDW, ANEU, BMP #### [address] [address] Total Protein 7.2 G/dL Normal 6.4-8.2 [facility] Comment on above: Performed By: #### A DIFF, PBNP, TROPHS, CBC, GFR, MDW, ANEU, BMP #### [address] [address] Urea nitrogen [Mass/Vol] 13 mg/dL Normal 7-18 [facility] Comment on above: Performed By: #### A DIFF, PBNP, TROPHS, CBC, GFR, MDW, ANEU, BMP #### [address] [address] CVFLURVon 06-12-2025 FLU A PCR Negative Normal Negative [facility] Comment on above: Performed By: #### A DIFF, PBNP, TROPHS, CBC, GFR, MDW, ANEU, BMP #### [address] [address] FLU B PCR Negative Normal Negative [facility] Comment on above: Performed By: #### A DIFF, PBNP, TROPHS, CBC, GFR, MDW, ANEU, BMP #### [address] [address] RSV PCR Negative Normal Negative [facility] Comment on above: Performed By: #### A DIFF, PBNP, TROPHS, CBC, GFR, MDW, ANEU, BMP #### [address] [address] SARS-CoV-2 (COVID-19) RNA IVANA+probe Ql (Unsp spec) Negative Normal Negative [facility] Comment on above: Result Comment: Resu [...] TROPHS, CBC, GFR, MDW, ANEU, BMP #### [place] [id number] [place], [place] [address] LABORATORYOrdered By: SYSTEM SYSTEM on 06-12-2025 Troponin I.cardiac DL <= 0.01 ng/mL [Mass/Vol] 20 ng/L Normal 0 - 34 ng/L AH ADM SS Comment on above: Interpretive Data: High Sensitive Troponin I Reference Ranges: Female: 0-34 ng/L Male: 0-54 ng/L Testing performed on [employer] IM analyzer using direct chemiluminescent technology. Natriuretic peptide.B prohormone N-Terminal IA [Mass/Vol] 8817 pg/mL High 0 - 900 pg/mL ADM SS Troponin I.cardiac DL <= 0.01 ng/mL [Mass/Vol] 22 ng/L Normal 0 - 34 ng/L AH ADM SS Comment on above: Interpretive Data: High Sensitive Troponin I Reference Ranges: Female: 0-34 ng/L Male: 0-54 ng/L Testing performed on [employer] IM analyzer using direct chemiluminescent technology. Troponin I.cardiac DL <= 0.01 ng/mL [Mass/Vol] 35 ng/L Normal 0 - 51 ng/L AO ADM SS Comment on above: Interpretive Data: H igh Sensitive Troponin I Reference Ranges: Female: 0-51 ng/L Male: 0-76 ng/L Testing performed on [employer] using a homogeneous sandwich chemiluminescent immunoassay based on [email or web address] technology. Albumin BCP dye [Mass/Vol] 3.1 G/dL [...] ng/L Male: 0-76 ng/L Testing performed on [employer] using a homogeneous sandwich chemiluminescent immunoassay based on [email or web address] technology. Urea nitrogen [Mass/Vol] 13 mg/dL Normal [...] 06-12-2025 Magnesium [Mass/Vol] 1.5 mg/dL Low 1.6-2.4 [facility] Comment on above: Performed By: #### T GOMEZ #### [facility] [address] [place] [address] PBNPon 06-12-2025 Natriuretic peptide B (Bld) [Mass/Vol] 8817 pg/mL High 0-900 [facility] Comment on above: Performed By: #### T GOMEZ #### [facility] [address] [place] [address] Natriuretic peptide B (Bld) [Mass/Vol] 9545 pg/mL High 0-125 [facility] Comment on above: Result Comment: NT-p roBNP results of less than 300 pg/mL effectively rules out acute congestive heart failure with 99% negative predictive value. Performed By: #### A DIFF, PBNP, TROPHS, CBC, GFR, MDW, ANEU, BMP #### [address] [address] [facility] High Sensitivity Troponin I 20 ng/L Normal 0-34 [facility] Comment on above: Result Comment: High Sensitive Troponin I Reference Ranges: Female: 0-34 ng/L Male: 0-54 ng/L Testing performed on [employer] IM analyzer using direct chemiluminescent technology. Performed By: #### T GOMEZ #### [place] [address] High Sensitivity Troponin I 22 ng/L Normal 0-34 [facility] Comment on above: Result Comment: High Sensitive Troponin I Reference Ranges: Female: 0-34 ng/L Male: 0-54 ng/L Testing performed on [employer] IM analyzer using direct chemiluminescent technology. Performed By: #### T GOMEZ #### [place] [address] High Sensitivity Troponin I 35 ng/L Normal 0-51 [facility] Comment on above: Result Comment: High Sensitive Troponin I Reference Ranges: Female: 0-51 ng/L Male: 0-76 ng/L Testing performed on Dimension EXL using a homogeneous sandwich chemiluminescent immunoassay based on [email or web address] technology. Performed By: #### A DIFF, PBNP, TROPHS, CBC, GFR, MDW, ANEU, BMP #### [address] [address] High Sensitivity Troponin I 36 ng/L Normal 0-51 [facility] Comment on above: Result Comment: High Sensitive Troponin I Reference Ranges: Female: 0-51 ng/L Male: 0-76 ng/L Testing performed on Dimension EXL using a homogeneous sandwich chemiluminescent immunoassay based on [employer] technology. Performed By: #### A DIFF, PBNP, TROPHS, CBC, GFR, MDW, ANEU, BMP #### [address] [address] UAon 06-12-2025 Color (U) Yellow Normal [facility] Comment on above: Performed By: #### T GOMEZ #### [place] [address] Glucose (U) [Mass/Vol] Negative Normal Negative [facility] Comment on above: Performed By: #### T GOMEZ #### [place] [id number] Ketones Ql (U) Negative Normal Neg-Trace [facility] Comment on above: Performed By: #### T GOMEZ #### [place] [address] UA Appear Clear Normal Clear [facility] Comment on above: Performed By: #### T GOMEZ #### [place] [address] UA Blood Negative Normal Neg-Trace [facility] Comment on above: Performed By: #### T GOMEZ #### [place] [address] UA Leuk Est Negative Normal Negative [facility] Comment on above: Performed By: #### T GOMEZ #### [place] [address] UA Nitrite Negative Normal Negative [facility] Comment on above: Performed By: #### T GOMEZ #### [place] [address] UA pH 5.0 Normal 5.0 - 8.0 [facility] Comment on above: Performed By: #### T GOMEZ #### [place] [address] UA Protein Negative Normal Negative [facility] Comment on above: Performed By: #### T GOMEZ #### [place] [address] UA Spec Grav <=1.005 Abnormal 1.006-1.029 [facility] Comment on above: Performed By: #### T GOMEZ #### [place] [address] UA Specimen Type Clean Catch Normal [facility] Comment on above: Performed By: #### T GOMEZ #### [place] [address] UA Urobilinogen 0.2 E.U./dL Normal 0.2-1.0 [facility] Comment on above: Performed By: #### T GOMEZ #### [facility] [address] [place] [address] Urobilinogen (U) [Mass/Vol] Negative Normal Neg-Trace [facility] Comment on above: Performed By: #### T GOMEZ #### [facility] [address] [place] [address] XR CHEST 1 VIEWon 06-12-2025 XR CHEST [...] 06/12/2025 3:52:07 PM Ordering Provider: KRYS PICKETT [facility] .GFRon 05-21-2025 Estimated Glomerular Filtration Rate 79 ml/min/1.73sqm Normal [facility] Comment on above: Result Comment: Stages [...] TROPHS, CBC, GFR, MDW, ANEU, BMP #### [address] [address] BMPon 05-21-2025 BUN/Creatinine Ratio 32 ratio High 7-[address] [facility] Comment on above: Performed By: #### A DIFF, PBNP, TROPHS, CBC, GFR, MDW, ANEU, BMP #### [address] [address] Calcium [Mass/Vol] 7.9 mg/dL Low 8.4-10.2 [facility] Comment on above: Performed By: #### A DIFF, PBNP, TROPHS, CBC, GFR, MDW, ANEU, BMP #### [address] [address] Chloride [Moles/Vol] 108 mmol/L High 98-[address] [facility] Comment on above: Performed By: #### A DIFF, PBNP, TROPHS, CBC, GFR, MDW, ANEU, BMP #### [address] [address] CO2 [Moles/Vol] 35 mmol/L High 23-31 [facility] Comment on above: Performed By: #### A DIFF, PBNP, TROPHS, CBC, GFR, MDW, ANEU, BMP #### [address] [address] Creatinine [Mass/Vol] 0.80 mg/dL Normal 0.51-0.95 [facility] Comment on above: Performed By: #### A DIFF, PBNP, TROPHS, CBC, GFR, MDW, ANEU, BMP #### [address] [address] Electrolyte Balance 4.0 mEq/L Normal 4.0-15.0 [facility] Comment on above: Performed By: #### A DIFF, PBNP, TROPHS, CBC, GFR, MDW, ANEU, BMP #### [address] [address] Glucose [Mass/Vol] 124 mg/dL High 83-110 [facility] Comment on above: Performed By: #### A DIFF, PBNP, TROPHS, CBC, GFR, MDW, ANEU, BMP #### [address] [address] Potassium [Moles/Vol] 3.6 mmol/L Normal 3.5-5.1 [facility] Comment on above: Performed By: #### A DIFF, PBNP, TROPHS, CBC, GFR, MDW, ANEU, BMP #### [address] [address] Sodium [Moles/Vol] 147 mmol/L High 136-145 [facility] Comment on above: Performed By: #### A DIFF, PBNP, TROPHS, CBC, GFR, MDW, ANEU, BMP #### [address] [address] Urea nitrogen [Mass/Vol] 26 mg/dL High 7-18 [facility] Comment on above: Performed By: #### A DIFF, PBNP, TROPHS, CBC, GFR, MDW, ANEU, BMP #### [address] [address] LABORATORYOrdered By: SYSTEM SYSTEM on 05-21-2025 Calcium [...] 05-21-2025 Magnesium [Mass/Vol] 2.0 mg/dL Normal 1.8-2.[address] [facility] Comment on above: Performed By: #### A DIFF, PBNP, TROPHS, CBC, GFR, MDW, ANEU, BMP #### [address] [address] .Auto Diffon 05-20-2025 Basophil, Absolute 0.0 10 3/mcL Normal 0.0-0.[address] [facility] Comment on above: Performed By: #### M RSAPCR #### [facility] [address] [place] [address] #### CVFLURV #### [place] [id number] [place], [place] [address] Basophils/100 WBC (Bld) 0.1 % Normal 0.0-2.5 [facility] Comment on above: Performed By: #### M RSAPCR #### [place] [address] #### CVFLURV #### [address] [address] Eosinophil, Absolute 0.0 10 3/mcL Normal 0.0-0.7 [facility] Comment on above: Performed By: #### M RSAPCR #### [place] [address] #### CVFLURV #### [address] [address] Eosinophils/100 WBC (Bld) 0.2 % Normal 0.0-6.0 [facility] Comment on above: Performed By: #### M RSAPCR #### [place] [address] #### CVFLURV #### [address] [address] Lymphocyte, Absolute 2.0 10 3/mcL Normal 0.9-4.3 [facility] Comment on above: Performed By: #### M RSAPCR #### [place] [address] #### CVFLURV #### [address] [address] Lymphocytes/100 WBC (Bld) 25.3 % Normal 20.0-40.0 [facility] Comment on above: Performed By: #### M RSAPCR #### [place] [address] #### CVFLURV #### [address] [address] Monocyte, Absolute 1.0 10 3/mcL Normal 0.1-1.[address] [facility] Comment on above: Performed By: #### M RSAPCR #### [place] [address] #### CVFLURV #### [address] [address] Monocytes/100 WBC (Bld) 13.5 % High 2.0-13.0 [facility] Comment on above: Performed By: #### M RSAPCR #### [place] [address] #### CVFLURV #### [address] [address] Neutrophils/100 WBC (Bld) 60.9 % Normal 50.0-75.0 [facility] Comment on above: Performed By: #### M RSAPCR #### [place] [id number] #### CVFLURV #### [address] [address] .GFRon 05-20-2025 Estimated Glomerular Filtration Rate 76 ml/min/1.73sqm Normal [facility] Comment on above: Result Comment: Stages [...] results. Performed By: #### M RSAPCR #### [place] [id number] #### CVFLURV #### [address] [address] .NEUABSon 05-20-2025 Neutrophil, Absolute 4.7 10 3/mcL Normal 2.3-8.1 [facility] Comment on above: Performed By: #### M RSAPCR #### [place] [id number] #### CVFLURV #### [address] [address] BMPon 05-20-2025 BUN/Creatinine Ratio 33 ratio High 7-[address] [facility] Comment on above: Performed By: #### M RSAPCR #### [place] [id number] #### CVFLURV #### [address] [address] Calcium [Mass/Vol] 8.0 mg/dL Low 8.4-10.2 [facility] Comment on above: Performed By: #### M RSAPCR #### [place] [id number] #### CVFLURV #### [address] [address] Chloride [Moles/Vol] 104 mmol/L Normal 98-[address] [facility] Comment on above: Performed By: #### M RSAPCR #### [place] [address] #### CVFLURV #### [address] [address] CO2 [Moles/Vol] 38 mmol/L High 23-31 [facility] Comment on above: Performed By: #### M RSAPCR #### [place] [address] #### CVFLURV #### [address] [address] Creatinine [Mass/Vol] 0.83 mg/dL Normal 0.51-0.95 [facility] Comment on above: Performed By: #### M RSAPCR #### [place] [address] #### CVFLURV #### [address] [address] Electrolyte Balance 0.0 mEq/L Low 4.0-15.0 [facility] Comment on above: Performed By: #### M RSAPCR #### [place] [address] #### CVFLURV #### [address] [address] Glucose [Mass/Vol] 113 mg/dL High 83-110 [facility] Comment on above: Performed By: #### M RSAPCR #### [place] [address] #### CVFLURV #### [address] [address] Potassium [Moles/Vol] 4.3 mmol/L Normal 3.5-5.1 [facility] Comment on above: Performed By: #### M RSAPCR #### [place] [address] #### CVFLURV #### [address] [address] Sodium [Moles/Vol] 142 mmol/L Normal 136-145 [facility] Comment on above: Performed By: #### M RSAPCR #### [place] [address] #### CVFLURV #### [address] [address] Urea nitrogen [Mass/Vol] 27 mg/dL High 7-18 [facility] Comment on above: Performed By: #### M RSAPCR #### [place] [address] #### CVFLURV #### [address] [address] CBCon 05-20-2025 Erythrocyte distribution width (RBC) [Ratio] 17.4 % High 11.5-15.5 [facility] Comment on above: Performed By: #### M RSAPCR #### [place] [address] #### CVFLURV #### [address] [address] Hematocrit (Bld) [Volume fraction] 39.0 % Normal 34.0-46.0 [facility] Comment on above: Performed By: #### M RSAPCR #### [place] [address] #### CVFLURV #### [address] [address] Hgb 12.7 G/dL Normal 12.0-16.0 [facility] Comment on above: Performed By: #### M RSAPCR #### [place] [address] #### CVFLURV #### [address] [address] MCH (RBC) [Entitic mass] 29.8 pg Normal 27.0-33.0 [facility] Comment on above: Performed By: #### M RSAPCR #### [place] [address] #### CVFLURV #### [place] [address] MCHC 32.5 G/dL Normal 32.0-36.0 [facility] Comment on above: Performed By: #### M RSAPCR #### [place] [address] #### CVFLURV #### [place] [address] MCV (RBC) [Entitic vol] 91.8 fL Normal 80.0-99.0 [facility] Comment on above: Performed By: #### M RSAPCR #### [place] [address] #### CVFLURV #### [address] [address] Platelet 264 10 3/mcL Normal 150-450 [facility] Comment on above: Performed By: #### M RSAPCR #### [place] [address] #### CVFLURV #### [address] [address] Platelet mean volume (Bld) [Entitic vol] 9.1 fL Normal 6.6-10.5 [facility] Comment on above: Performed By: #### M RSAPCR #### [place] [address] #### CVFLURV #### [address] [place], [place] [address] RBC 4.25 10 6/mcL Normal 4.10-5.30 [facility] Comment on above: Performed By: #### M RSAPCR #### [address] [address] #### CVFLURV #### [address] [address] WBC 7.8 10 3/mcL Normal 4.5-10.8 [facility] Comment on above: Performed By: #### M RSAPCR #### [place] [address] #### CVFLURV #### [address] [address] LABORATORYOrdered By: SYSTEM SYSTEM on 05-20-2025 Basophils [...] 05-20-2025 Magnesium [Mass/Vol] 1.9 mg/dL Normal 1.8-2.[address] [facility] Comment on above: Performed By: #### M RSAPCR #### [place] [address] #### CVFLURV #### [address] [address] MYCOon 05-20-2025 Mycoplasma IgG Positive Normal [facility] Comment on above: Result Comment: INTE RPRETATION OF MYCOPLASMA IgG BY EIA: Negative: No detectable M. pneumoniae IgG antibody. Positive: Mycoplasma pneumoniae IgG antibody Detected. Equivocal: Equivocal for IgG antibodies to Mycoplasma pneumoniae. Suggest repeat testing in 10-14 days. Performed By: #### M RSAPCR #### [place] [address] #### CVFLURV #### [address] [address] .Auto Diffon 05-19-2025 Basophil, Absolute 0.0 10 3/mcL Normal 0.0-0.[address] [facility] Comment on above: Performed By: #### A DIFF, PBNP, TROPHS, CBC, GFR, MDW, ANEU, BMP #### [address] [address] Basophils/100 WBC (Bld) 0.3 % Normal 0.0-2.5 [facility] Comment on above: Performed By: #### A DIFF, PBNP, TROPHS, CBC, GFR, MDW, ANEU, BMP #### [address] [address] Eosinophil, Absolute 0.0 10 3/mcL Normal 0.0-0.7 [facility] Comment on above: Performed By: #### A DIFF, PBNP, TROPHS, CBC, GFR, MDW, ANEU, BMP #### [address] [address] Eosinophils/100 WBC (Bld) 0.2 % Normal 0.0-6.0 [facility] Comment on above: Performed By: #### A DIFF, PBNP, TROPHS, CBC, GFR, MDW, ANEU, BMP #### [address] [address] Lymphocyte, Absolute 1.8 10 3/mcL Normal 0.9-4.3 [facility] Comment on above: Performed By: #### A DIFF, PBNP, TROPHS, CBC, GFR, MDW, ANEU, BMP #### [address] [address] Lymphocytes/100 WBC (Bld) 24.9 % Normal 20.0-40.0 [facility] Comment on above: Performed By: #### A DIFF, PBNP, TROPHS, CBC, GFR, MDW, ANEU, BMP #### [address] [address] Monocyte, Absolute 1.0 10 3/mcL Normal 0.1-1.[address] [facility] Comment on above: Performed By: #### A DIFF, PBNP, TROPHS, CBC, GFR, MDW, ANEU, BMP #### [address] [address] Monocytes/100 WBC (Bld) 13.5 % High 2.0-13.0 [facility] Comment on above: Performed By: #### A DIFF, PBNP, TROPHS, CBC, GFR, MDW, ANEU, BMP #### [address] [address] Neutrophils/100 WBC (Bld) 61.1 % Normal 50.0-75.0 [facility] Comment on above: Performed By: #### A DIFF, PBNP, TROPHS, CBC, GFR, MDW, ANEU, BMP #### [place] [id number] [place], [place] [address] .GFRon 05-19-2025 Estimated Glomerular Filtration Rate 70 ml/min/1.73sqm Normal [facility] Comment on above: Result Comment: Stages [...] TROPHS, CBC, GFR, MDW, ANEU, BMP #### [place] [id number] [place], [place] [address] .NEUABSon 05-19-2025 Neutrophil, Absolute 4.3 10 3/mcL Normal 2.3-8.1 [facility] Comment on above: Performed By: #### A DIFF, PBNP, TROPHS, CBC, GFR, MDW, ANEU, BMP #### [place] [id number] [place], [place] [address] BMPon 05-19-2025 BUN/Creatinine Ratio 31 ratio High 7-[address] [facility] Comment on above: Performed By: #### A DIFF, PBNP, TROPHS, CBC, GFR, MDW, ANEU, BMP #### [place] [id number] [place], [place] [address] Calcium [Mass/Vol] 8.3 mg/dL Low 8.4-10.2 [facility] Comment on above: Performed By: #### A DIFF, PBNP, TROPHS, CBC, GFR, MDW, ANEU, BMP #### [address] [address] Chloride [Moles/Vol] 106 mmol/L Normal 98-[address] [facility] Comment on above: Performed By: #### A DIFF, PBNP, TROPHS, CBC, GFR, MDW, ANEU, BMP #### [address] [address] CO2 [Moles/Vol] 41 mmol/L Critically abnormal 23-31 [facility] Comment on above: Performed By: #### A DIFF, PBNP, TROPHS, CBC, GFR, MDW, ANEU, BMP #### [address] [address] Creatinine [Mass/Vol] 0.89 mg/dL Normal 0.51-0.95 [facility] Comment on above: Performed By: #### A DIFF, PBNP, TROPHS, CBC, GFR, MDW, ANEU, BMP #### [address] [address] Electrolyte Balance -1.0 mEq/L Low 4.0-15.0 [facility] Comment on above: Performed By: #### A DIFF, PBNP, TROPHS, CBC, GFR, MDW, ANEU, BMP #### [address] [address] Glucose [Mass/Vol] 108 mg/dL Normal 83-110 [facility] Comment on above: Performed By: #### A DIFF, PBNP, TROPHS, CBC, GFR, MDW, ANEU, BMP #### [address] [address] Potassium [Moles/Vol] 3.9 mmol/L Normal 3.5-5.1 [facility] Comment on above: Performed By: #### A DIFF, PBNP, TROPHS, CBC, GFR, MDW, ANEU, BMP #### [address] [address] Sodium [Moles/Vol] 146 mmol/L High 136-145 [facility] Comment on above: Performed By: #### A DIFF, PBNP, TROPHS, CBC, GFR, MDW, ANEU, BMP #### [place] [address] Urea nitrogen [Mass/Vol] 28 mg/dL High 7-18 [facility] Comment on above: Performed By: #### A DIFF, PBNP, TROPHS, CBC, GFR, MDW, ANEU, BMP #### [place] [address] CBCon 05-19-2025 Erythrocyte distribution width (RBC) [Ratio] 17.8 % High 11.5-15.5 [facility] Comment on above: Performed By: #### A DIFF, PBNP, TROPHS, CBC, GFR, MDW, ANEU, BMP #### [place] [address] Hematocrit (Bld) [Volume fraction] 39.7 % Normal 34.0-46.0 [facility] Comment on above: Performed By: #### A DIFF, PBNP, TROPHS, CBC, GFR, MDW, ANEU, BMP #### [place] [address] Hgb 12.7 G/dL Normal 12.0-16.0 [facility] Comment on above: Performed By: #### A DIFF, PBNP, TROPHS, CBC, GFR, MDW, ANEU, BMP #### [place] [address] MCH (RBC) [Entitic mass] 29.3 pg Normal 27.0-33.0 [facility] Comment on above: Performed By: #### A DIFF, PBNP, TROPHS, CBC, GFR, MDW, ANEU, BMP #### [place] [address] MCHC 32.1 G/dL Normal 32.0-36.0 [facility] Comment on above: Performed By: #### A DIFF, PBNP, TROPHS, CBC, GFR, MDW, ANEU, BMP #### [address] [address] MCV (RBC) [Entitic vol] 91.5 fL Normal 80.0-99.0 [facility] Comment on above: Performed By: #### A DIFF, PBNP, TROPHS, CBC, GFR, MDW, ANEU, BMP #### [address] [address] Platelet 261 10 3/mcL Normal 150-450 [facility] Comment on above: Performed By: #### A DIFF, PBNP, TROPHS, CBC, GFR, MDW, ANEU, BMP #### [place] [address] Platelet mean volume (Bld) [Entitic vol] 9.1 fL Normal 6.6-10.5 [facility] Comment on above: Performed By: #### A DIFF, PBNP, TROPHS, CBC, GFR, MDW, ANEU, BMP #### [place] [address] RBC 4.33 10 6/mcL Normal 4.10-5.30 [facility] Comment on above: Performed By: #### A DIFF, PBNP, TROPHS, CBC, GFR, MDW, ANEU, BMP #### [place] [address] WBC 7.0 10 3/mcL Normal 4.5-10.8 [facility] Comment on above: Performed By: #### A DIFF, PBNP, TROPHS, CBC, GFR, MDW, ANEU, BMP #### [address] [address] LABORATORYOrdered By: SYSTEM SYSTEM on 05-19-2025 Basophils [...] 05-19-2025 Magnesium [Mass/Vol] 1.9 mg/dL Normal 1.8-2.[address] [facility] Comment on above: Performed By: #### A DIFF, PBNP, TROPHS, CBC, GFR, MDW, ANEU, BMP #### [address] [address] PBNPon 05-19-2025 Natriuretic peptide B (Bld) [Mass/Vol] 4502 pg/mL High 0-125 [facility] Comment on above: Result Comment: NT-p roBNP results of less than 300 pg/mL effectively rules out acute congestive heart failure with 99% negative predictive value. Performed By: #### A DIFF, PBNP, TROPHS, CBC, GFR, MDW, ANEU, BMP #### [address] [address] .Auto Diffon 05-18-2025 Basophil, Absolute 0.0 10 3/mcL Normal 0.0-0.[address] [facility] Comment on above: Performed By: #### A DIFF, PBNP, TROPHS, CBC, GFR, MDW, ANEU, BMP #### [address] [address] Basophils/100 WBC (Bld) 0.2 % Normal 0.0-2.5 [facility] Comment on above: Performed By: #### A DIFF, PBNP, TROPHS, CBC, GFR, MDW, ANEU, BMP #### [address] [address] Eosinophil, Absolute 0.0 10 3/mcL Normal 0.0-0.7 [facility] Comment on above: Performed By: #### A DIFF, PBNP, TROPHS, CBC, GFR, MDW, ANEU, BMP #### [address] [address] Eosinophils/100 WBC (Bld) 0.0 % Normal 0.0-6.0 [facility] Comment on above: Performed By: #### A DIFF, PBNP, TROPHS, CBC, GFR, MDW, ANEU, BMP #### [address] [address] Lymphocyte, Absolute 0.7 10 3/mcL Low 0.9-4.3 [facility] Comment on above: Performed By: #### A DIFF, PBNP, TROPHS, CBC, GFR, MDW, ANEU, BMP #### [address] [address] Lymphocytes/100 WBC (Bld) 7.9 % Low 20.0-40.0 [facility] Comment on above: Performed By: #### A DIFF, PBNP, TROPHS, CBC, GFR, MDW, ANEU, BMP #### [place] [id number] [place], [place] [address] Monocyte, Absolute 1.0 10 3/mcL Normal 0.1-1.[address] [facility] Comment on above: Performed By: #### A DIFF, PBNP, TROPHS, CBC, GFR, MDW, ANEU, BMP #### [address] [address] Monocytes/100 WBC (Bld) 11.5 % Normal 2.0-13.0 [facility] Comment on above: Performed By: #### A DIFF, PBNP, TROPHS, CBC, GFR, MDW, ANEU, BMP #### [address] [address] Neutrophils/100 WBC (Bld) 80.4 % High 50.0-75.0 [facility] Comment on above: Performed By: #### A DIFF, PBNP, TROPHS, CBC, GFR, MDW, ANEU, BMP #### [address] [address] .GFRon 05-18-2025 Estimated Glomerular Filtration Rate 69 ml/min/1.73sqm Normal [facility] Comment on above: Result Comment: Stages [...] TROPHS, CBC, GFR, MDW, ANEU, BMP #### [address] [address] .NEUABSon 05-18-2025 Neutrophil, Absolute 7.0 10 3/mcL Normal 2.3-8.1 [facility] Comment on above: Performed By: #### A DIFF, PBNP, TROPHS, CBC, GFR, MDW, ANEU, BMP #### [address] [address] BMPon 05-18-2025 BUN/Creatinine Ratio 29 ratio High 7-[address] [facility] Comment on above: Performed By: #### A DIFF, PBNP, TROPHS, CBC, GFR, MDW, ANEU, BMP #### [address] [address] Calcium [Mass/Vol] 8.2 mg/dL Low 8.4-10.2 [facility] Comment on above: Performed By: #### A DIFF, PBNP, TROPHS, CBC, GFR, MDW, ANEU, BMP #### [address] [address] Chloride [Moles/Vol] 106 mmol/L Normal 98-[address] [facility] Comment on above: Performed By: #### A DIFF, PBNP, TROPHS, CBC, GFR, MDW, ANEU, BMP #### [address] [address] CO2 [Moles/Vol] 37 mmol/L High 23-31 [facility] Comment on above: Performed By: #### A DIFF, PBNP, TROPHS, CBC, GFR, MDW, ANEU, BMP #### [address] [address] Creatinine [Mass/Vol] 0.90 mg/dL Normal 0.51-0.95 [facility] Comment on above: Performed By: #### A DIFF, PBNP, TROPHS, CBC, GFR, MDW, ANEU, BMP #### [address] [address] Electrolyte Balance 3.0 mEq/L Low 4.0-15.0 [facility] Comment on above: Performed By: #### A DIFF, PBNP, TROPHS, CBC, GFR, MDW, ANEU, BMP #### [address] [address] Glucose [Mass/Vol] 130 mg/dL High 83-110 [facility] Comment on above: Performed By: #### A DIFF, PBNP, TROPHS, CBC, GFR, MDW, ANEU, BMP #### [address] [address] Potassium [Moles/Vol] 4.1 mmol/L Normal 3.5-5.1 [facility] Comment on above: Performed By: #### A DIFF, PBNP, TROPHS, CBC, GFR, MDW, ANEU, BMP #### [address] [address] Sodium [Moles/Vol] 146 mmol/L High 136-145 [facility] Comment on above: Performed By: #### A DIFF, PBNP, TROPHS, CBC, GFR, MDW, ANEU, BMP #### [address] [address] Urea nitrogen [Mass/Vol] 26 mg/dL High 7-18 [facility] Comment on above: Performed By: #### A DIFF, PBNP, TROPHS, CBC, GFR, MDW, ANEU, BMP #### [address] [address] CBCon 05-18-2025 Erythrocyte distribution width (RBC) [Ratio] 17.9 % High 11.5-15.5 [facility] Comment on above: Performed By: #### A DIFF, PBNP, TROPHS, CBC, GFR, MDW, ANEU, BMP #### [address] [address] Hematocrit (Bld) [Volume fraction] 37.7 % Normal 34.0-46.0 [facility] Comment on above: Performed By: #### A DIFF, PBNP, TROPHS, CBC, GFR, MDW, ANEU, BMP #### [address] [address] Hgb 12.5 G/dL Normal 12.0-16.0 [facility] Comment on above: Performed By: #### A DIFF, PBNP, TROPHS, CBC, GFR, MDW, ANEU, BMP #### [place] [address] MCH (RBC) [Entitic mass] 30.4 pg Normal 27.0-33.0 [facility] Comment on above: Performed By: #### A DIFF, PBNP, TROPHS, CBC, GFR, MDW, ANEU, BMP #### [place] [address] MCHC 33.2 G/dL Normal 32.0-36.0 [facility] Comment on above: Performed By: #### A DIFF, PBNP, TROPHS, CBC, GFR, MDW, ANEU, BMP #### [address] [address] MCV (RBC) [Entitic vol] 91.4 fL Normal 80.0-99.0 [facility] Comment on above: Performed By: #### A DIFF, PBNP, TROPHS, CBC, GFR, MDW, ANEU, BMP #### [address] [address] Platelet 275 10 3/mcL Normal 150-450 [facility] Comment on above: Performed By: #### A DIFF, PBNP, TROPHS, CBC, GFR, MDW, ANEU, BMP #### [address] [address] Platelet mean volume (Bld) [Entitic vol] 9.3 fL Normal 6.6-10.5 [facility] Comment on above: Performed By: #### A DIFF, PBNP, TROPHS, CBC, GFR, MDW, ANEU, BMP #### [place] [address] RBC 4.13 10 6/mcL Normal 4.10-5.30 [facility] Comment on above: Performed By: #### A DIFF, PBNP, TROPHS, CBC, GFR, MDW, ANEU, BMP #### [place] [id number] [place], [place] [address] WBC 8.7 10 3/mcL Normal 4.5-10.8 [facility] Comment on above: Performed By: #### A DIFF, PBNP, TROPHS, CBC, GFR, MDW, ANEU, BMP #### [facility] [address] [place], [place] [address] LABORATORYOrdered By: SYSTEM SYSTEM on 05-18-2025 Basophils [...] 05-18-2025 Magnesium [Mass/Vol] 1.9 mg/dL Normal 1.8-2.[address] [facility] Comment on above: Performed By: #### A DIFF, PBNP, TROPHS, CBC, GFR, MDW, ANEU, BMP #### [address] [address] MYCOon 05-18-2025 Mycoplasma IgM Negative Normal [facility] Comment on above: Result Comment: INTE RPRETATION OF MYCOPLASMA IgM: Negative: IgM to M. pneumoniae Absent, or at levels below the assay limit of detection. Positive: IgM to M. pneumoniae Present. Invalid: Test results are invalid due to invalid internal control. Assay was performed in duplicate. Repeat testing is suggested if clinically indicated. Performed By: #### M RSAPCR #### [facility] [address] [place] [id number] #### CVFLURV #### [address] [address] PBNPon 05-18-2025 Natriuretic peptide B (Bld) [Mass/Vol] 6422 pg/mL High 0-125 [facility] Comment on above: Result Comment: NT-p roBNP results of less than 300 pg/mL effectively rules out acute congestive heart failure with 99% negative predictive value. Performed By: #### A DIFF, PBNP, TROPHS, CBC, GFR, MDW, ANEU, BMP #### [address] [address] .Auto Diffon 05-17-2025 Basophil, Absolute 0.0 10 3/mcL Normal 0.0-0.[address] [facility] Comment on above: Performed By: #### M RSAPCR #### [place] [address] #### CVFLURV #### [address] [address] Basophils/100 WBC (Bld) 0.3 % Normal 0.0-2.5 [facility] Comment on above: Performed By: #### M RSAPCR #### [place] [address] #### CVFLURV #### [address] [address] Eosinophil, Absolute 0.0 10 3/mcL Normal 0.0-0.7 [facility] Comment on above: Performed By: #### M RSAPCR #### [place] [address] #### CVFLURV #### [address] [address] Eosinophils/100 WBC (Bld) 0.0 % Normal 0.0-6.0 [facility] Comment on above: Performed By: #### M RSAPCR #### [place] [address] #### CVFLURV #### [address] [address] Lymphocyte, Absolute 0.3 10 3/mcL Low 0.9-4.3 [facility] Comment on above: Performed By: #### M RSAPCR #### [place] [address] #### CVFLURV #### [address] [address] Lymphocytes/100 WBC (Bld) 6.4 % Low 20.0-40.0 [facility] Comment on above: Performed By: #### M RSAPCR #### [place] [address] #### CVFLURV #### [address] [address] Monocyte, Absolute 0.1 10 3/mcL Normal 0.1-1.[address] [facility] Comment on above: Performed By: #### M RSAPCR #### [place] [address] #### CVFLURV #### [address] [address] Monocytes/100 WBC (Bld) 1.5 % Low 2.0-13.0 [facility] Comment on above: Performed By: #### M RSAPCR #### [place] [address] #### CVFLURV #### [address] [address] Neutrophils/100 WBC (Bld) 91.8 % High 50.0-75.0 [facility] Comment on above: Performed By: #### M RSAPCR #### [place] [address] #### CVFLURV #### [address] [address] .GFRon 05-17-2025 Estimated Glomerular Filtration Rate 66 ml/min/1.73sqm Normal [facility] Comment on above: Result Comment: Stages [...] results. Performed By: #### M RSAPCR #### [place] [address] #### CVFLURV #### [address] [address] .NEUABSon 05-17-2025 Neutrophil, Absolute 3.6 10 3/mcL Normal 2.3-8.1 [facility] Comment on above: Performed By: #### M RSAPCR #### [place] [address] #### CVFLURV #### [address] [address] BMPon 05-17-2025 BUN/Creatinine Ratio 17 ratio Normal 7-[address] [facility] Comment on above: Performed By: #### M RSAPCR #### [place] [address] #### CVFLURV #### [address] [address] Calcium [Mass/Vol] 8.0 mg/dL Low 8.4-10.2 [facility] Comment on above: Performed By: #### M RSAPCR #### [place] [address] #### CVFLURV #### [address] [address] Chloride [Moles/Vol] 107 mmol/L Normal 98-[address] [facility] Comment on above: Performed By: #### M RSAPCR #### [place] [address] #### CVFLURV #### [address] [address] CO2 [Moles/Vol] 39 mmol/L High 23-31 [facility] Comment on above: Performed By: #### M RSAPCR #### [place] [address] #### CVFLURV #### [address] [address] Creatinine [Mass/Vol] 0.93 mg/dL Normal 0.51-0.95 [facility] Comment on above: Performed By: #### M RSAPCR #### [place] [address] #### CVFLURV #### [address] [address] Electrolyte Balance 2.0 mEq/L Low 4.0-15.0 [facility] Comment on above: Performed By: #### M RSAPCR #### [place] [address] #### CVFLURV #### [address] [address] Glucose [Mass/Vol] 174 mg/dL High 83-110 [facility] Comment on above: Performed By: #### M RSAPCR #### [place] [address] #### CVFLURV #### [address] [address] Potassium [Moles/Vol] 4.6 mmol/L Normal 3.5-5.1 [facility] Comment on above: Performed By: #### M RSAPCR #### [place] [address] #### CVFLURV #### [address] [address] Sodium [Moles/Vol] 148 mmol/L High 136-145 [facility] Comment on above: Performed By: #### M RSAPCR #### [place] [address] #### CVFLURV #### [address] [address] Urea nitrogen [Mass/Vol] 16 mg/dL Normal 7-18 [facility] Comment on above: Performed By: #### M RSAPCR #### [place] [address] #### CVFLURV #### [place] [address] CBCon 05-17-2025 Erythrocyte distribution width (RBC) [Ratio] 17.8 % High 11.5-15.5 [facility] Comment on above: Performed By: #### M RSAPCR #### [place] [address] #### CVFLURV #### [place] [address] Hematocrit (Bld) [Volume fraction] 38.0 % Normal 34.0-46.0 [facility] Comment on above: Performed By: #### M RSAPCR #### [place] [address] #### CVFLURV #### [place] [address] Hgb 12.3 G/dL Normal 12.0-16.0 [facility] Comment on above: Performed By: #### M RSAPCR #### [place] [address] #### CVFLURV #### [place] [address] MCH (RBC) [Entitic mass] 29.7 pg Normal 27.0-33.0 [facility] Comment on above: Performed By: #### M RSAPCR #### [place] [address] #### CVFLURV #### [place] [address] MCHC 32.2 G/dL Normal 32.0-36.0 [facility] Comment on above: Performed By: #### M RSAPCR #### [place] [id number] #### CVFLURV #### [address] [address] MCV (RBC) [Entitic vol] 92.2 fL Normal 80.0-99.0 [facility] Comment on above: Performed By: #### M RSAPCR #### [place] [address] #### CVFLURV #### [address] [address] Platelet 257 10 3/mcL Normal 150-450 [facility] Comment on above: Performed By: #### M RSAPCR #### [place] [address] #### CVFLURV #### [address] [address] Platelet mean volume (Bld) [Entitic vol] 9.3 fL Normal 6.6-10.5 [facility] Comment on above: Performed By: #### M RSAPCR #### [place] [address] #### CVFLURV #### [address] [address] RBC 4.12 10 6/mcL Normal 4.10-5.30 [facility] Comment on above: Performed By: #### M RSAPCR #### [place] [address] #### CVFLURV #### [address] [address] WBC 4.0 10 3/mcL Low 4.5-10.8 [facility] Comment on above: Performed By: #### M RSAPCR #### [place] [address] #### CVFLURV #### [address] [address] CVFLURVon 05-17-2025 FLU A PCR Negative Normal Negative [facility] Comment on above: Performed By: #### M RSAPCR #### [place] [address] #### CVFLURV #### [address] [address] FLU B PCR Negative Normal Negative [facility] Comment on above: Performed By: #### M RSAPCR #### [address] [address] #### CVFLURV #### [address] [address] RSV PCR Negative Normal Negative [facility] Comment on above: Performed By: #### M RSAPCR #### [place] [address] #### CVFLURV #### [place] [address] SARS-CoV-2 (COVID-19) RNA IVANA+probe Ql (Unsp spec) Negative Normal Negative [facility] Comment on above: Result Comment: Resu [...] results. Performed By: #### M RSAPCR #### [place] [address] #### CVFLURV #### [place] [address] LABORATORYOrdered By: SYSTEM SYSTEM on 05-17-2025 Natriuretic [...] Comment on above: Result Comment: [place] [id number] MRSA PCR Int See Below 2 *NA* [...] 05-17-2025 Magnesium [Mass/Vol] 1.5 mg/dL Low 1.8-2.[address] [facility] Comment on above: Performed By: #### M RSAPCR #### [address] [address] #### CVFLURV #### [address] [address] MRSAPCRon 05-17-2025 MRSA (PCR) Not detected Normal Not Detected [facility] Comment on above: Result Comment: [place] [id number] Performed By: #### M RSAPCR #### [address] [address] #### CVFLURV #### [address] [address] MRSA PCR Int See Below Normal [facility] Comment on above: Result Comment: Clinical [...] reproducible. Performed By: #### M RSAPCR #### [address] [address] #### CVFLURV #### [address] [address] No Panel Informationon 05-17 Legionella Urine Ag Presumptive negative for L. pneumophila serogroup 1 antigen in urine, suggesting no recent or current infection. Legionnaire's disease cannot be ruled out since other serogroups and species may also cause disease. [facility] Work Phone: Microscopic examination of blood, culture Blood Culture: No Growth at 5 days. [facility] Work Phone: Streptococcus Pneumoniae Urine Antig Presumptive negative for pneumococcal pneumonia, suggesting no current or recent pneumococcal infection. Infection due to Strep pneumoniae cannot be ruled out since the antigen present in the sample may be below the detection limit of the test. [facility] Work Phone: Comment on above: This test has not be en evaluated on patients taking antibiotics for greater than 24 hours or on patients who have recently completed an antibiotic regimen. The accuracy of this test has not been proven in young children. PBNPon 05-17-2025 Natriuretic peptide B (Bld) [Mass/Vol] 5616 pg/mL High 0-125 [facility] Comment on above: Result Comment: NT-p roBNP results of less than 300 pg/mL effectively rules out acute congestive heart failure with 99% negative predictive value. Performed By: #### M RSAPCR #### [place] [address] #### CVFLURV #### [address] [address] .Auto Diffon 05-16-2025 Basophil, Absolute 0.1 10 3/mcL Normal 0.0-0.[address] [facility] Comment on above: Performed By: #### A DIFF, PBNP, TROPHS, CBC, GFR, MDW, ANEU, BMP #### [address] [address] Basophils/100 WBC (Bld) 2.0 % Normal 0.0-2.5 [facility] Comment on above: Performed By: #### A DIFF, PBNP, TROPHS, CBC, GFR, MDW, ANEU, BMP #### [address] [address] Eosinophil, Absolute 0.1 10 3/mcL Normal 0.0-0.7 [facility] Comment on above: Performed By: #### A DIFF, PBNP, TROPHS, CBC, GFR, MDW, ANEU, BMP #### [address] [address] Eosinophils/100 WBC (Bld) 1.9 % Normal 0.0-6.0 [facility] Comment on above: Performed By: #### A DIFF, PBNP, TROPHS, CBC, GFR, MDW, ANEU, BMP #### [address] [address] Lymphocyte, Absolute 1.4 10 3/mcL Normal 0.9-4.3 [facility] Comment on above: Performed By: #### A DIFF, PBNP, TROPHS, CBC, GFR, MDW, ANEU, BMP #### [address] [address] Lymphocytes/100 WBC (Bld) 20.4 % Normal 20.0-40.0 [facility] Comment on above: Performed By: #### A DIFF, PBNP, TROPHS, CBC, GFR, MDW, ANEU, BMP #### [address] [address] Monocyte, Absolute 0.8 10 3/mcL Normal 0.1-1.[address] [facility] Comment on above: Performed By: #### A DIFF, PBNP, TROPHS, CBC, GFR, MDW, ANEU, BMP #### [address] [address] Monocytes/100 WBC (Bld) 12.2 % Normal 2.0-13.0 [facility] Comment on above: Performed By: #### A DIFF, PBNP, TROPHS, CBC, GFR, MDW, ANEU, BMP #### [address] [address] Neutrophils/100 WBC (Bld) 63.5 % Normal 50.0-75.0 [facility] Comment on above: Performed By: #### A DIFF, PBNP, TROPHS, CBC, GFR, MDW, ANEU, BMP #### [address] [address] .GFRon 05-16-2025 Estimated Glomerular Filtration Rate 67 ml/min/1.73sqm Normal [facility] Comment on above: Result Comment: Stages [...] results. Performed By: #### M RSAPCR #### [address] [address] #### CVFLURV #### [address] [address] .MDWon 05-16-2025 Monocyte Distribution Width 16.95 Normal 0.00-20.00 [facility] Comment on above: Result Comment: For ED adult patients suspected of sepsis, MDW<=20.0 does not rule out sepsis or risk of sepsis Performed By: #### A DIFF, PBNP, TROPHS, CBC, GFR, MDW, ANEU, BMP #### [address] [address] .NEUABSon 05-16-2025 Neutrophil, Absolute 4.2 10 3/mcL Normal 2.3-8.1 [facility] Comment on above: Performed By: #### A DIFF, PBNP, TROPHS, CBC, GFR, MDW, ANEU, BMP #### [address] [address] BMPon 05-16-2025 BUN/Creatinine Ratio 13 ratio Normal 7-[address] [facility] Comment on above: Performed By: #### A DIFF, PBNP, TROPHS, CBC, GFR, MDW, ANEU, BMP #### [address] [address] Calcium [Mass/Vol] 8.4 mg/dL Normal 8.4-10.2 [facility] Comment on above: Performed By: #### A DIFF, PBNP, TROPHS, CBC, GFR, MDW, ANEU, BMP #### [address] [address] Chloride [Moles/Vol] 109 mmol/L High 98-[address] [facility] Comment on above: Performed By: #### A DIFF, PBNP, TROPHS, CBC, GFR, MDW, ANEU, BMP #### [address] [address] CO2 [Moles/Vol] 38 mmol/L High 23-31 [facility] Comment on above: Performed By: #### A DIFF, PBNP, TROPHS, CBC, GFR, MDW, ANEU, BMP #### [address] [address] Creatinine [Mass/Vol] 0.92 mg/dL Normal 0.51-0.95 [facility] Comment on above: Performed By: #### A DIFF, PBNP, TROPHS, CBC, GFR, MDW, ANEU, BMP #### [address] [address] Electrolyte Balance 2.0 mEq/L Low 4.0-15.0 [facility] Comment on above: Performed By: #### A DIFF, PBNP, TROPHS, CBC, GFR, MDW, ANEU, BMP #### [address] [address] Glucose [Mass/Vol] 124 mg/dL High 83-110 [facility] Comment on above: Performed By: #### A DIFF, PBNP, TROPHS, CBC, GFR, MDW, ANEU, BMP #### [address] [address] Potassium [Moles/Vol] 4.0 mmol/L Normal 3.5-5.1 [facility] Comment on above: Performed By: #### A DIFF, PBNP, TROPHS, CBC, GFR, MDW, ANEU, BMP #### [address] [address] Sodium [Moles/Vol] 149 mmol/L High 136-145 [facility] Comment on above: Performed By: #### A DIFF, PBNP, TROPHS, CBC, GFR, MDW, ANEU, BMP #### [address] [address] Urea nitrogen [Mass/Vol] 12 mg/dL Normal 7-18 [facility] Comment on above: Performed By: #### A DIFF, PBNP, TROPHS, CBC, GFR, MDW, ANEU, BMP #### [address] [address] CBCon 05-16-2025 Erythrocyte distribution width (RBC) [Ratio] 18.0 % High 11.5-15.5 [facility] Comment on above: Performed By: #### A DIFF, PBNP, TROPHS, CBC, GFR, MDW, ANEU, BMP #### [address] [address] Hematocrit (Bld) [Volume fraction] 43.3 % Normal 34.0-46.0 [facility] Comment on above: Performed By: #### A DIFF, PBNP, TROPHS, CBC, GFR, MDW, ANEU, BMP #### [address] [address] Hgb 13.8 G/dL Normal 12.0-16.0 [facility] Comment on above: Performed By: #### A DIFF, PBNP, TROPHS, CBC, GFR, MDW, ANEU, BMP #### [address] [address] MCH (RBC) [Entitic mass] 29.8 pg Normal 27.0-33.0 [facility] Comment on above: Performed By: #### A DIFF, PBNP, TROPHS, CBC, GFR, MDW, ANEU, BMP #### [address] [address] MCHC 31.9 G/dL Low 32.0-36.0 [facility] Comment on above: Performed By: #### A DIFF, PBNP, TROPHS, CBC, GFR, MDW, ANEU, BMP #### [address] [address] MCV (RBC) [Entitic vol] 93.3 fL Normal 80.0-99.0 [facility] Comment on above: Performed By: #### A DIFF, PBNP, TROPHS, CBC, GFR, MDW, ANEU, BMP #### [address] [address] Platelet 264 10 3/mcL Normal 150-450 [facility] Comment on above: Performed By: #### A DIFF, PBNP, TROPHS, CBC, GFR, MDW, ANEU, BMP #### [address] [address] Platelet mean volume (Bld) [Entitic vol] 9.0 fL Normal 6.6-10.5 [facility] Comment on above: Performed By: #### A DIFF, PBNP, TROPHS, CBC, GFR, MDW, ANEU, BMP #### [address] [address] RBC 4.64 10 6/mcL Normal 4.10-5.30 [facility] Comment on above: Performed By: #### A DIFF, PBNP, TROPHS, CBC, GFR, MDW, ANEU, BMP #### [address] [address] WBC 6.6 10 3/mcL Normal 4.5-10.8 [facility] Comment on above: Performed By: #### A DIFF, PBNP, TROPHS, CBC, GFR, MDW, ANEU, BMP #### [place] [id number] [place] [address] LABORATORYOrdered By: Haider Ellis on 05-16-2025 Appearance [...] a homogeneous sandwich chemiluminescent immunoassay based on [email or web address] technology. PBNPon 05-16-2025 Natriuretic peptide B (Bld) [Mass/Vol] 4760 pg/mL High 0-125 [facility] Comment on above: Result Comment: NT-p roBNP results of less than 300 pg/mL effectively rules out acute congestive heart failure with 99% negative predictive value. Performed By: #### A DIFF, PBNP, TROPHS, CBC, GFR, MDW, ANEU, BMP #### [address] [address] [facility] High Sensitivity Troponin I 38 ng/L Normal 0-51 [facility] Comment on above: Result Comment: High Sensitive Troponin I Reference Ranges: Female: 0-51 ng/L Male: 0-76 ng/L Testing performed on [employer] using a homogeneous sandwich chemiluminescent immunoassay based on [email or web address] technology. Performed By: #### A DIFF, PBNP, TROPHS, CBC, GFR, MDW, ANEU, BMP #### [address] [address] UAon 05-16-2025 Color (U) Yellow Normal [facility] Comment on above: Performed By: #### A DIFF, PBNP, TROPHS, CBC, GFR, MDW, ANEU, BMP #### [address] [address] Glucose (U) [Mass/Vol] Negative Normal Negative [facility] Comment on above: Performed By: #### A DIFF, PBNP, TROPHS, CBC, GFR, MDW, ANEU, BMP #### [address] [address] Ketones Ql (U) Negative Normal Negative [facility] Comment on above: Performed By: #### A DIFF, PBNP, TROPHS, CBC, GFR, MDW, ANEU, BMP #### [place] [address] UA Appear Slightly Cloudy Abnormal Clear [facility] Comment on above: Performed By: #### A DIFF, PBNP, TROPHS, CBC, GFR, MDW, ANEU, BMP #### [place] [address] UA Blood Negative Normal Negative [facility] Comment on above: Performed By: #### A DIFF, PBNP, TROPHS, CBC, GFR, MDW, ANEU, BMP #### [place] [address] UA Leuk Est Negative Normal Negative [facility] Comment on above: Performed By: #### A DIFF, PBNP, TROPHS, CBC, GFR, MDW, ANEU, BMP #### [place] [address] UA Nitrite Negative Normal Negative [facility] Comment on above: Performed By: #### A DIFF, PBNP, TROPHS, CBC, GFR, MDW, ANEU, BMP #### [place] [address] UA pH 6.0 Normal 5.0 - 8.0 [facility] Comment on above: Performed By: #### A DIFF, PBNP, TROPHS, CBC, GFR, MDW, ANEU, BMP #### [place] [address] UA Protein 30 mg/dL Normal Negative [facility] Comment on above: Performed By: #### A DIFF, PBNP, TROPHS, CBC, GFR, MDW, ANEU, BMP #### [place] [address] UA Spec Grav 1.015 Normal 1.015-1.025 [facility] Comment on above: Performed By: #### A DIFF, PBNP, TROPHS, CBC, GFR, MDW, ANEU, BMP #### [place] [address] UA Specimen Type Not Given Normal [facility] Comment on above: Performed By: #### A DIFF, PBNP, TROPHS, CBC, GFR, MDW, ANEU, BMP #### [place] [address] UA Urobilinogen 0.2 E.U./dL Normal 0.2-1.0 [facility] Comment on above: Performed By: #### A DIFF, PBNP, TROPHS, CBC, GFR, MDW, ANEU, BMP #### [place] [address] Urobilinogen (U) [Mass/Vol] Negative Normal Negative [facility] Comment on above: Performed By: #### A DIFF, PBNP, TROPHS, CBC, GFR, MDW, ANEU, BMP #### [place] [address] UAMICon 05-16-2025 UA Bacteria 2+ /hpf Abnormal Negative [facility] Comment on above: Performed By: #### A DIFF, PBNP, TROPHS, CBC, GFR, MDW, ANEU, BMP #### [place] [address] UA RBC Negative Normal 0-2 [facility] Comment on above: Performed By: #### A DIFF, PBNP, TROPHS, CBC, GFR, MDW, ANEU, BMP #### [place] [address] UA Squam Epithelial 3-5 Normal 0-20 [facility] Comment on above: Performed By: #### A DIFF, PBNP, TROPHS, CBC, GFR, MDW, ANEU, BMP #### [place] [address] UA WBC 0-2 Normal 0-5 [facility] Comment on above: Performed By: #### A DIFF, PBNP, TROPHS, CBC, GFR, MDW, ANEU, BMP #### [place] [address] UA Yeast Trace Abnormal [facility] Comment on above: Performed By: #### A DIFF, PBNP, TROPHS, CBC, GFR, MDW, ANEU, BMP #### [place] [id number] [place], [place] [address] XR CHEST 1 VIEWon 05-16-2025 XR CHEST [...] 8:27:46 PM Ordering Provider: BRIAN TRINIDAD Normal [facility] .Auto Diffon 03-05-2025 Basophil, Absolute 0.0 10 3/mcL Normal 0.0-0.[address] [facility] Comment on above: Performed By: #### M RSAPCR #### [facility] [address] [place] [address] #### CVFLURV #### [place] [id number] [place], [place] [address] Basophils/100 WBC (Bld) 0.1 % Normal 0.0-2.5 [facility] Comment on above: Performed By: #### M RSAPCR #### [place] [address] #### CVFLURV #### [address] [address] Eosinophil, Absolute 0.0 10 3/mcL Normal 0.0-0.7 [facility] Comment on above: Performed By: #### M RSAPCR #### [place] [address] #### CVFLURV #### [address] [address] Eosinophils/100 WBC (Bld) 0.0 % Normal 0.0-6.0 [facility] Comment on above: Performed By: #### M RSAPCR #### [place] [address] #### CVFLURV #### [address] [address] Lymphocyte, Absolute 0.4 10 3/mcL Low 0.9-4.3 [facility] Comment on above: Performed By: #### M RSAPCR #### [place] [address] #### CVFLURV #### [address] [address] Lymphocytes/100 WBC (Bld) 4.4 % Low 20.0-40.0 [facility] Comment on above: Performed By: #### M RSAPCR #### [place] [address] #### CVFLURV #### [address] [address] Monocyte, Absolute 0.2 10 3/mcL Normal 0.1-1.[address] [facility] Comment on above: Performed By: #### M RSAPCR #### [place] [address] #### CVFLURV #### [address] [address] Monocytes/100 WBC (Bld) 2.7 % Normal 2.0-13.0 [facility] Comment on above: Performed By: #### M RSAPCR #### [address] [address] #### CVFLURV #### [address] [address] Neutrophils/100 WBC (Bld) 92.8 % High 50.0-75.0 [facility] Comment on above: Performed By: #### M RSAPCR #### [place] [address] #### CVFLURV #### [address] [address] .GFRon 03-05-2025 Estimated Glomerular Filtration Rate 88 ml/min/1.73sqm Normal [facility] Comment on above: Result Comment: Stages [...] results. Performed By: #### M RSAPCR #### [place] [address] #### CVFLURV #### [address] [address] .NEUABSon 03-05-2025 Neutrophil, Absolute 7.6 10 3/mcL Normal 2.3-8.1 [facility] Comment on above: Performed By: #### M RSAPCR #### [place] [id number] #### CVFLURV #### [address] [address] BMPon 03-05-2025 BUN/Creatinine Ratio 28 ratio High 7-[address] [facility] Comment on above: Performed By: #### M RSAPCR #### [place] [address] #### CVFLURV #### [address] [address] Calcium [Mass/Vol] 8.5 mg/dL Normal 8.4-10.2 [facility] Comment on above: Performed By: #### M RSAPCR #### [place] [address] #### CVFLURV #### [place] [address] Chloride [Moles/Vol] 107 mmol/L Normal 98-[address] [facility] Comment on above: Performed By: #### M RSAPCR #### [place] [address] #### CVFLURV #### [address] [address] CO2 [Moles/Vol] 29 mmol/L Normal 23-31 [facility] Comment on above: Performed By: #### M RSAPCR #### [place] [address] #### CVFLURV #### [address] [address] Creatinine [Mass/Vol] 0.74 mg/dL Normal 0.51-0.95 [facility] Comment on above: Performed By: #### M RSAPCR #### [place] [address] #### CVFLURV #### [address] [address] Electrolyte Balance 5.0 mEq/L Normal 4.0-15.0 [facility] Comment on above: Performed By: #### M RSAPCR #### [place] [address] #### CVFLURV #### [address] [address] Glucose [Mass/Vol] 160 mg/dL High 80-115 [facility] Comment on above: Performed By: #### M RSAPCR #### [place] [address] #### CVFLURV #### [address] [address] Potassium [Moles/Vol] 4.6 mmol/L Normal 3.5-5.1 [facility] Comment on above: Performed By: #### M RSAPCR #### [place] [address] #### CVFLURV #### [address] [address] Sodium [Moles/Vol] 141 mmol/L Normal 136-145 [facility] Comment on above: Performed By: #### M RSAPCR #### [place] [address] #### CVFLURV #### [address] [address] Urea nitrogen [Mass/Vol] 21 mg/dL High 7-18 [facility] Comment on above: Performed By: #### M RSAPCR #### [place] [address] #### CVFLURV #### [address] [address] CBCon 03-05-2025 Erythrocyte distribution width (RBC) [Ratio] 16.5 % High 11.5-15.5 [facility] Comment on above: Performed By: #### M RSAPCR #### [place] [address] #### CVFLURV #### [address] [address] Hematocrit (Bld) [Volume fraction] 38.1 % Normal 34.0-46.0 [facility] Comment on above: Performed By: #### M RSAPCR #### [place] [address] #### CVFLURV #### [address] [address] Hgb 12.4 G/dL Normal 12.0-16.0 [facility] Comment on above: Performed By: #### M RSAPCR #### [place] [address] #### CVFLURV #### [address] [address] MCH (RBC) [Entitic mass] 29.7 pg Normal 27.0-33.0 [facility] Comment on above: Performed By: #### M RSAPCR #### [place] [address] #### CVFLURV #### [place] [address] MCHC 32.4 G/dL Normal 32.0-36.0 [facility] Comment on above: Performed By: #### M RSAPCR #### [place] [address] #### CVFLURV #### [place] [address] MCV (RBC) [Entitic vol] 91.7 fL Normal 80.0-99.0 [facility] Comment on above: Performed By: #### M RSAPCR #### [place] [address] #### CVFLURV #### [address] [address] Platelet 318 10 3/mcL Normal 150-450 [facility] Comment on above: Performed By: #### M RSAPCR #### [place] [address] #### CVFLURV #### [address] [address] Platelet mean volume (Bld) [Entitic vol] 8.2 fL Normal 6.6-10.5 [facility] Comment on above: Performed By: #### M RSAPCR #### [place] [address] #### CVFLURV #### [address] [address] RBC 4.16 10 6/mcL Normal 4.10-5.30 [facility] Comment on above: Performed By: #### M RSAPCR #### [place] [address] #### CVFLURV #### [place] [address] WBC 8.2 10 3/mcL Normal 4.5-10.8 [facility] Comment on above: Performed By: #### M RSAPCR #### [place] [address] #### CVFLURV #### [place] [address] LABORATORYOrdered By: SYSTEM SYSTEM on 03-05-2025 Basophils [...] Basophil, Absolute 0.1 10 3/mcL Normal 0.0-0.[address] [facility] Comment on above: Performed By: #### A DIFF, PBNP, TROPHS, CBC, GFR, MDW, ANEU, BMP #### [address] [address] Basophils/100 WBC (Bld) 0.9 % Normal 0.0-2.5 [facility] Comment on above: Performed By: #### A DIFF, PBNP, TROPHS, CBC, GFR, MDW, ANEU, BMP #### [address] [address] Eosinophil, Absolute 0.2 10 3/mcL Normal 0.0-0.7 [facility] Comment on above: Performed By: #### A DIFF, PBNP, TROPHS, CBC, GFR, MDW, ANEU, BMP #### [address] [address] Eosinophils/100 WBC (Bld) 1.9 % Normal 0.0-6.0 [facility] Comment on above: Performed By: #### A DIFF, PBNP, TROPHS, CBC, GFR, MDW, ANEU, BMP #### [address] [address] Lymphocyte, Absolute 1.9 10 3/mcL Normal 0.9-4.3 [facility] Comment on above: Performed By: #### A DIFF, PBNP, TROPHS, CBC, GFR, MDW, ANEU, BMP #### [address] [address] Lymphocytes/100 WBC (Bld) 22.2 % Normal 20.0-40.0 [facility] Comment on above: Performed By: #### A DIFF, PBNP, TROPHS, CBC, GFR, MDW, ANEU, BMP #### [address] [address] Monocyte, Absolute 1.0 10 3/mcL Normal 0.1-1.[address] [facility] Comment on above: Performed By: #### A DIFF, PBNP, TROPHS, CBC, GFR, MDW, ANEU, BMP #### [address] [address] Monocytes/100 WBC (Bld) 11.9 % Normal 2.0-13.0 [facility] Comment on above: Performed By: #### A DIFF, PBNP, TROPHS, CBC, GFR, MDW, ANEU, BMP #### [address] [address] Neutrophils/100 WBC (Bld) 63.1 % Normal 50.0-75.0 [facility] Comment on above: Performed By: #### A DIFF, PBNP, TROPHS, CBC, GFR, MDW, ANEU, BMP #### [address] [address] .GFRon 03-04-2025 Estimated Glomerular Filtration Rate 75 ml/min/1.73sqm Normal [facility] Comment on above: Result Comment: Stages [...] results. Performed By: #### M RSAPCR #### [place] [address] #### CVFLURV #### [address] [address] .MDWon 03-04-2025 Monocyte Distribution Width 17.56 Normal 0.00-20.00 [facility] Comment on above: Result Comment: For ED adult patients suspected of sepsis, MDW<=20.0 does not rule out sepsis or risk of sepsis Performed By: #### M RSAPCR #### [place] [address] #### CVFLURV #### [address] [address] .NEUABSon 03-04-2025 Neutrophil, Absolute 5.3 10 3/mcL Normal 2.3-8.1 [facility] Comment on above: Performed By: #### M RSAPCR #### [place] [address] #### CVFLURV #### [address] [address] BMPon 03-04-2025 BUN/Creatinine Ratio 18 ratio Normal 7-[address] [facility] Comment on above: Performed By: #### M RSAPCR #### [place] [address] #### CVFLURV #### [address] [address] Calcium [Mass/Vol] 9.0 mg/dL Normal 8.4-10.2 [facility] Comment on above: Performed By: #### M RSAPCR #### [place] [address] #### CVFLURV #### [address] [address] Chloride [Moles/Vol] 106 mmol/L Normal 98-[address] [facility] Comment on above: Performed By: #### M RSAPCR #### [place] [address] #### CVFLURV #### [address] [address] CO2 [Moles/Vol] 34 mmol/L High 23-31 [facility] Comment on above: Performed By: #### M RSAPCR #### [place] [address] #### CVFLURV #### [address] [address] Creatinine [Mass/Vol] 0.84 mg/dL Normal 0.51-0.95 [facility] Comment on above: Performed By: #### M RSAPCR #### [place] [address] #### CVFLURV #### [address] [address] Electrolyte Balance 3.0 mEq/L Low 4.0-15.0 [facility] Comment on above: Performed By: #### M RSAPCR #### [place] [address] #### CVFLURV #### [address] [address] Glucose [Mass/Vol] 137 mg/dL High 80-115 [facility] Comment on above: Performed By: #### M RSAPCR #### [place] [address] #### CVFLURV #### [address] [address] Potassium [Moles/Vol] 4.1 mmol/L Normal 3.5-5.1 [facility] Comment on above: Performed By: #### M RSAPCR #### [place] [address] #### CVFLURV #### [address] [address] Sodium [Moles/Vol] 143 mmol/L Normal 136-145 [facility] Comment on above: Performed By: #### M RSAPCR #### [address] [address] #### CVFLURV #### [address] [address] Urea nitrogen [Mass/Vol] 15 mg/dL Normal 7-18 [facility] Comment on above: Performed By: #### M RSAPCR #### [address] [address] #### CVFLURV #### [address] [address] CBCon 03-04-2025 Erythrocyte distribution width (RBC) [Ratio] 16.9 % High 11.5-15.5 [facility] Comment on above: Performed By: #### A DIFF, PBNP, TROPHS, CBC, GFR, MDW, ANEU, BMP #### [address] [address] Hematocrit (Bld) [Volume fraction] 45.7 % Normal 34.0-46.0 [facility] Comment on above: Performed By: #### A DIFF, PBNP, TROPHS, CBC, GFR, MDW, ANEU, BMP #### [address] [address] Hgb 14.9 G/dL Normal 12.0-16.0 [facility] Comment on above: Performed By: #### A DIFF, PBNP, TROPHS, CBC, GFR, MDW, ANEU, BMP #### [address] [address] MCH (RBC) [Entitic mass] 30.0 pg Normal 27.0-33.0 [facility] Comment on above: Performed By: #### A DIFF, PBNP, TROPHS, CBC, GFR, MDW, ANEU, BMP #### [address] [address] MCHC 32.5 G/dL Normal 32.0-36.0 [facility] Comment on above: Performed By: #### A DIFF, PBNP, TROPHS, CBC, GFR, MDW, ANEU, BMP #### [address] [address] MCV (RBC) [Entitic vol] 92.2 fL Normal 80.0-99.0 [facility] Comment on above: Performed By: #### A DIFF, PBNP, TROPHS, CBC, GFR, MDW, ANEU, BMP #### [address] [address] Platelet 369 10 3/mcL Normal 150-450 [facility] Comment on above: Performed By: #### A DIFF, PBNP, TROPHS, CBC, GFR, MDW, ANEU, BMP #### [address] [address] Platelet mean volume (Bld) [Entitic vol] 8.1 fL Normal 6.6-10.5 [facility] Comment on above: Performed By: #### A DIFF, PBNP, TROPHS, CBC, GFR, MDW, ANEU, BMP #### [address] [address] RBC 4.95 10 6/mcL Normal 4.10-5.30 [facility] Comment on above: Performed By: #### A DIFF, PBNP, TROPHS, CBC, GFR, MDW, ANEU, BMP #### [address] [address] WBC 8.4 10 3/mcL Normal 4.5-10.8 [facility] Comment on above: Performed By: #### A DIFF, PBNP, TROPHS, CBC, GFR, MDW, ANEU, BMP #### [address] [address] CVFLURVon 03-04-2025 FLU A PCR Negative Normal Negative [facility] Comment on above: Result Comment: Note [place] [id number] Performed By: #### M RSAPCR #### [facility] [address] [place] [address] #### CVFLURV #### [address] [address] FLU B PCR Negative Normal Negative [facility] Comment on above: Result Comment: Note s [id number] Performed By: #### M RSAPCR #### [address] [address] #### CVFLURV #### [address] [address] RSV PCR Negative Normal Negative [facility] Comment on above: Result Comment: Note s [id number] Performed By: #### M RSAPCR #### [address] [address] #### CVFLURV #### [place] [address] [place], [place] [address] SARS-CoV-2 (COVID-19) RNA IVANA+probe Ql (Unsp spec) Negative Normal Negative [facility] Comment on above: Result Comment: Note s [id number] This test has been authorized by FDA [...] results. Performed By: #### M RSAPCR #### [address] [address] #### CVFLURV #### [place] [id number] [place] [id number] LABORATORYOrdered By: Guillermo Lebron on 03-04-2025 Adenovirus DNA IVANA+non-probe Ql (Nph) Not Detected *NA* (03/04/25 10:09 AM) Invalid Interpretation Code Not Detected AH Auto Viro/Sero SS B. parapertussis [id number] DNA IVANA+non-probe Ql (Nph) Not Detected *NA* [...] his assay has been validated in the [facility] for use with nasopharyngeal specimens in [facility]. If a non-validated specimen or test collection [...] Comment on above: Result Comment: Note s [id number] FLUBV RNA IVANA+probe Ql (Resp) Negative 10 (03/04/25 10:09 AM) Normal Negative [facility]/Sero SS Comment on above: Result Comment: Note s [id number] RSV PCR Negative 11 (03/04/25 10:09 AM) Normal Negative [facility] Auto Viro/Sero SS Comment on above: Result Comment: Note s [id number] SARS-CoV-2 (COVID-19) RNA IVANA+probe Ql (Resp) Negative 7, 8 (03/04/25 10:09 AM) Normal Negative [facility] Auto Viro/Sero SS Comment on above: Result Comment: Note s [id number] Interpretive Data: T his test has been [...] ng/L Male: 0-76 ng/L Testing performed on [employer] using a homogeneous sandwich chemiluminescent immunoassay based on [email or web address] technology. Urea nitrogen [Mass/Vol] 15 mg/dL Normal 7 - 18 mg/dL AO ADM SS Urea nitrogen/Creatinine [Mass ratio] 18 ratio Normal 7 - 27 ratio AO ADM SS WBC (Bld) [#/Vol] 8.4 103/mcL Normal 4.5 - 10.8 10^3/mcL AO Workflow SS PBNPon 03-04-2025 Natriuretic peptide B (Bld) [Mass/Vol] 2664 pg/mL High 0-125 [facility] Comment on above: Result Comment: NT-p roBNP results of less than 300 pg/mL effectively rules out acute congestive heart failure with 99% negative predictive value. Performed By: #### A DIFF, PBNP, TROPHS, CBC, GFR, MDW, ANEU, BMP #### [place] [address] RESCVIDon 03-04-2025 Adenovirus Not detected Normal Not Detected [facility] Comment on above: Performed By: #### M RSAPCR #### [place] [address] #### CVFLURV #### [place] [address] Bordetella Parapertussis Not detected Normal Not Detected [facility] Comment on above: Performed By: #### M RSAPCR #### [place] [address] #### CVFLURV #### [place] [address] Bordetella Pertussis Not detected Normal Not Detected [facility] Comment on above: Performed By: #### M RSAPCR #### [place] [address] #### CVFLURV #### [address] [address] Chlamydophila pneumoniae Not detected Normal Not Detected [facility] Comment on above: Performed By: #### M RSAPCR #### [place] [address] #### CVFLURV #### [place] [address] Coronavirus 229E (Not COVID-19) Not detected Normal Not Detected [facility] Comment on above: Performed By: #### M RSAPCR #### [place] [address] #### CVFLURV #### [address] [address] Coronavirus HKU1 (Not COVID-19) Not detected Normal Not Detected [facility] Comment on above: Performed By: #### M RSAPCR #### [place] [address] #### CVFLURV #### [address] [address] Coronavirus NL63 (Not COVID-19) Not detected Normal Not Detected [facility] Comment on above: Performed By: #### M RSAPCR #### [place] [address] #### CVFLURV #### [address] [address] Coronavirus OC43 (Not COVID-19) Not detected Normal Not Detected [facility] Comment on above: Performed By: #### M RSAPCR #### [place] [address] #### CVFLURV #### [address] [address] Human Metapneumovirus Not detected Normal Not Detected [facility] Comment on above: Performed By: #### M RSAPCR #### [place] [address] #### CVFLURV #### [address] [address] Influenza A Not detected Normal Not Detected [facility] Comment on above: Performed By: #### M RSAPCR #### [place] [id number] #### CVFLURV #### [address] [address] Influenza B Not detected Normal Not Detected [facility] Comment on above: Performed By: #### M RSAPCR #### [address] [place], [place] [address] #### CVFLURV #### [address] [address] Mycoplasma pneumoniae Not detected Normal Not Detected [facility] Comment on above: Performed By: #### M RSAPCR #### [facility] [address] [place] [address] #### CVFLURV #### [address] [address] Parainfluenza 1 Not detected Normal Not Detected [facility] Comment on above: Performed By: #### M RSAPCR #### [place] [id number] #### CVFLURV #### [address] [address] Parainfluenza 2 Not detected Normal Not Detected [facility] Comment on above: Performed By: #### M RSAPCR #### [place] [address] #### CVFLURV #### [address] [address] Parainfluenza 3 Not detected Normal Not Detected [facility] Comment on above: Performed By: #### M RSAPCR #### [address] [address] #### CVFLURV #### [address] [address] Parainfluenza 4 Not detected Normal Not Detected [facility] Comment on above: Performed By: #### M RSAPCR #### [facility] [address] [place] [address] #### CVFLURV #### [address] [address] Respiratory Syncytial Virus Not detected Normal Not Detected [facility] Comment on above: Performed By: #### M RSAPCR #### [address] [address] #### CVFLURV #### [address] [address] Rhinovirus/Enterovirus Not detected Normal Not Detected [facility] Comment on above: Performed By: #### M RSAPCR #### [address] [address] #### CVFLURV #### [address] [address] SARS-CoV-2 (COVID-19) RNA IVANA+probe Ql (Unsp spec) Not detected Normal Not Detected [facility] Comment on above: Result Comment: This assay has been validated in the [facility] for use with nasopharyngeal specimens in [facility]. If a non-validated specimen or test collection [...] authorities. Performed By: #### M RSAPCR #### [address] [address] #### CVFLURV #### [place] [id number] [place], [place] [address] [facility] 03-04-2025 High Sensitivity Troponin I 33 ng/L Normal 0-51 [facility] Comment on above: Result Comment: High Sensitive Troponin I Reference Ranges: Female: 0-51 ng/L Male: 0-76 ng/L Testing performed on [employer] using a homogeneous sandwich chemiluminescent immunoassay based on [email or web address] technology. Performed By: #### M RSAPCR #### [facility] [address] [place] [address] #### CVFLURV #### [place] [id number] [place], [place] [address] XR CHEST 1 VIEWon 03-04-2025 XR CHEST [...] 6:41:45 AM Ordering Provider: EMMANUEL KILLIAN Normal [facility] MYCOon 02-21-2025 Mycoplasma IgM Negative [facility] Comment on above: Result Comment: INTE [...] TROPHS, CBC, GFR, MDW, ANEU, BMP #### [place] [id number] [place], [place] [address] .Auto Diffon 02-20-2025 Basophil, Absolute 0.1 10 3/mcL Normal 0.0-0.[address] [facility] Comment on above: Performed By: #### A DIFF, PBNP, TROPHS, CBC, GFR, MDW, ANEU, BMP #### [address] [address] Basophils/100 WBC (Bld) 1.4 % Normal 0.0-2.5 [facility] Comment on above: Performed By: #### A DIFF, PBNP, TROPHS, CBC, GFR, MDW, ANEU, BMP #### [address] [address] Eosinophil, Absolute 0.2 10 3/mcL Normal 0.0-0.7 [facility] Comment on above: Performed By: #### A DIFF, PBNP, TROPHS, CBC, GFR, MDW, ANEU, BMP #### [address] [address] Eosinophils/100 WBC (Bld) 2.3 % Normal 0.0-6.0 [facility] Comment on above: Performed By: #### A DIFF, PBNP, TROPHS, CBC, GFR, MDW, ANEU, BMP #### [address] [address] Lymphocyte, Absolute 1.9 10 3/mcL Normal 0.9-4.3 [facility] Comment on above: Performed By: #### A DIFF, PBNP, TROPHS, CBC, GFR, MDW, ANEU, BMP #### [address] [address] Lymphocytes/100 WBC (Bld) 28.3 % Normal 20.0-40.0 [facility] Comment on above: Performed By: #### A DIFF, PBNP, TROPHS, CBC, GFR, MDW, ANEU, BMP #### [address] [address] Monocyte, Absolute 1.0 10 3/mcL Normal 0.1-1.[address] [facility] Comment on above: Performed By: #### A DIFF, PBNP, TROPHS, CBC, GFR, MDW, ANEU, BMP #### [address] [address] Monocytes/100 WBC (Bld) 14.2 % High 2.0-13.0 [facility] Comment on above: Performed By: #### A DIFF, PBNP, TROPHS, CBC, GFR, MDW, ANEU, BMP #### [place] [address] [place], [place] [address] Neutrophils/100 WBC (Bld) 53.8 % Normal 50.0-75.0 [facility] Comment on above: Performed By: #### A DIFF, PBNP, TROPHS, CBC, GFR, MDW, ANEU, BMP #### [address] [address] .GFRon 02-20-2025 Estimated Glomerular Filtration Rate 88 ml/min/1.73sqm Normal [facility] Comment on above: Result Comment: Stages [...] TROPHS, CBC, GFR, MDW, ANEU, BMP #### [address] [address] .NEUABSon 02-20-2025 Neutrophil, Absolute 3.7 10 3/mcL Normal 2.3-8.1 [facility] Comment on above: Performed By: #### A DIFF, PBNP, TROPHS, CBC, GFR, MDW, ANEU, BMP #### [address] [address] BMPon 02-20-2025 BUN/Creatinine Ratio 22 ratio Normal 7-[address] [facility] Comment on above: Performed By: #### A DIFF, PBNP, TROPHS, CBC, GFR, MDW, ANEU, BMP #### [address] [address] Calcium [Mass/Vol] 8.1 mg/dL Low 8.4-10.2 [facility] Comment on above: Performed By: #### A DIFF, PBNP, TROPHS, CBC, GFR, MDW, ANEU, BMP #### [address] [address] Chloride [Moles/Vol] 107 mmol/L Normal 98-[address] [facility] Comment on above: Performed By: #### A DIFF, PBNP, TROPHS, CBC, GFR, MDW, ANEU, BMP #### [address] [address] CO2 [Moles/Vol] 32 mmol/L High 23-31 [facility] Comment on above: Performed By: #### A DIFF, PBNP, TROPHS, CBC, GFR, MDW, ANEU, BMP #### [address] [address] Creatinine [Mass/Vol] 0.74 mg/dL Normal 0.55-1.02 [facility] Comment on above: Result Comment: Test ing performed on Siemens Dimension EXL analyzer using a modified kinetic [place] technique. Performed By: #### A DIFF, PBNP, TROPHS, CBC, GFR, MDW, ANEU, BMP #### [address] [address] Electrolyte Balance 3.0 mEq/L Low 4.0-15.0 [facility] Comment on above: Performed By: #### A DIFF, PBNP, TROPHS, CBC, GFR, MDW, ANEU, BMP #### [address] [address] Glucose [Mass/Vol] 105 mg/dL Normal 80-115 [facility] Comment on above: Performed By: #### A DIFF, PBNP, TROPHS, CBC, GFR, MDW, ANEU, BMP #### [address] [address] Potassium [Moles/Vol] 3.9 mmol/L Normal 3.5-5.1 [facility] Comment on above: Performed By: #### A DIFF, PBNP, TROPHS, CBC, GFR, MDW, ANEU, BMP #### [place] [id number] [place] [phone] Sodium [Moles/Vol] 142 mmol/L Normal 136-145 [facility] Comment on above: Performed By: #### A DIFF, PBNP, TROPHS, CBC, GFR, MDW, ANEU, BMP #### [place] [phone] Urea nitrogen [Mass/Vol] 16 mg/dL Normal 7-18 [facility] Comment on above: Performed By: #### A DIFF, PBNP, TROPHS, CBC, GFR, MDW, ANEU, BMP #### [place] [id number] CBCon 02-20-2025 Erythrocyte distribution width (RBC) [Ratio] 16.1 % High 11.5-15.5 [facility] Comment on above: Performed By: #### A DIFF, PBNP, TROPHS, CBC, GFR, MDW, ANEU, BMP #### [address] [address] Hematocrit (Bld) [Volume fraction] 37.9 % Normal 34.0-46.0 [facility] Comment on above: Performed By: #### A DIFF, PBNP, TROPHS, CBC, GFR, MDW, ANEU, BMP #### [address] [address] Hgb 12.2 G/dL Normal 12.0-16.0 [facility] Comment on above: Performed By: #### A DIFF, PBNP, TROPHS, CBC, GFR, MDW, ANEU, BMP #### [address] [address] MCH (RBC) [Entitic mass] 29.4 pg Normal 27.0-33.0 [facility] Comment on above: Performed By: #### A DIFF, PBNP, TROPHS, CBC, GFR, MDW, ANEU, BMP #### [address] [address] MCHC 32.2 G/dL Normal 32.0-36.0 [facility] Comment on above: Performed By: #### A DIFF, PBNP, TROPHS, CBC, GFR, MDW, ANEU, BMP #### [address] [address] MCV (RBC) [Entitic vol] 91.2 fL Normal 80.0-99.0 [facility] Comment on above: Performed By: #### A DIFF, PBNP, TROPHS, CBC, GFR, MDW, ANEU, BMP #### [address] [address] Platelet 304 10 3/mcL Normal 150-450 [facility] Comment on above: Performed By: #### A DIFF, PBNP, TROPHS, CBC, GFR, MDW, ANEU, BMP #### [address] [address] Platelet mean volume (Bld) [Entitic vol] 8.4 fL Normal 6.6-10.5 [facility] Comment on above: Performed By: #### A DIFF, PBNP, TROPHS, CBC, GFR, MDW, ANEU, BMP #### [address] [address] RBC 4.16 10 6/mcL Normal 4.10-5.30 [facility] Comment on above: Performed By: #### A DIFF, PBNP, TROPHS, CBC, GFR, MDW, ANEU, BMP #### [address] [address] WBC 6.9 10 3/mcL Normal 4.5-10.8 [facility] Comment on above: Performed By: #### A DIFF, PBNP, TROPHS, CBC, GFR, MDW, ANEU, BMP #### [address] [address] MGon 02-20-2025 Magnesium [Mass/Vol] 1.6 mg/dL Low 1.8-2.[address] [facility] Comment on above: Performed By: #### A DIFF, PBNP, TROPHS, CBC, GFR, MDW, ANEU, BMP #### [address] [address] MYCOon 02-20-2025 Mycoplasma IgG Positive Normal [facility] Comment on above: Result Comment: INTE RPRETATION OF MYCOPLASMA IgG BY EIA: Negative: No detectable M. pneumoniae IgG antibody. Positive: Mycoplasma pneumoniae IgG antibody Detected. Equivocal: Equivocal for IgG antibodies to Mycoplasma pneumoniae. Suggest repeat testing in 10-14 days. Performed By: #### A DIFF, PBNP, TROPHS, CBC, GFR, MDW, ANEU, BMP #### [address] [address] .Auto Diffon 02-19-2025 Basophil, Absolute 0.1 10 3/mcL Normal 0.0-0.[address] [facility] Comment on above: Performed By: #### A DIFF, PBNP, TROPHS, CBC, GFR, MDW, ANEU, BMP #### [address] [address] Basophils/100 WBC (Bld) 0.6 % Normal 0.0-2.5 [facility] Comment on above: Performed By: #### A DIFF, PBNP, TROPHS, CBC, GFR, MDW, ANEU, BMP #### [address] [address] Eosinophil, Absolute 0.1 10 3/mcL Normal 0.0-0.7 [facility] Comment on above: Performed By: #### A DIFF, PBNP, TROPHS, CBC, GFR, MDW, ANEU, BMP #### [address] [address] Eosinophils/100 WBC (Bld) 0.6 % Normal 0.0-6.0 [facility] Comment on above: Performed By: #### A DIFF, PBNP, TROPHS, CBC, GFR, MDW, ANEU, BMP #### [address] [address] Lymphocyte, Absolute 1.7 10 3/mcL Normal 0.9-4.3 [facility] Comment on above: Performed By: #### A DIFF, PBNP, TROPHS, CBC, GFR, MDW, ANEU, BMP #### [address] [address] Lymphocytes/100 WBC (Bld) 17.7 % Low 20.0-40.0 [facility] Comment on above: Performed By: #### A DIFF, PBNP, TROPHS, CBC, GFR, MDW, ANEU, BMP #### [address] [address] Monocyte, Absolute 0.8 10 3/mcL Normal 0.1-1.[address] [facility] Comment on above: Performed By: #### A DIFF, PBNP, TROPHS, CBC, GFR, MDW, ANEU, BMP #### [address] [address] Monocytes/100 WBC (Bld) 8.0 % Normal 2.0-13.0 [facility] Comment on above: Performed By: #### A DIFF, PBNP, TROPHS, CBC, GFR, MDW, ANEU, BMP #### [address] [address] Neutrophils/100 WBC (Bld) 73.1 % Normal 50.0-75.0 [facility] Comment on above: Performed By: #### A DIFF, PBNP, TROPHS, CBC, GFR, MDW, ANEU, BMP #### [address] [address] Basophil, Absolute 0.1 10 3/mcL Normal 0.0-0.[address] [facility] Comment on above: Performed By: #### A DIFF, PBNP, TROPHS, CBC, GFR, MDW, ANEU, BMP #### [address] [address] Basophils/100 WBC (Bld) 0.7 % Normal 0.0-2.5 [facility] Comment on above: Performed By: #### A DIFF, PBNP, TROPHS, CBC, GFR, MDW, ANEU, BMP #### [address] [address] Eosinophil, Absolute 0.2 10 3/mcL Normal 0.0-0.7 [facility] Comment on above: Performed By: #### A DIFF, PBNP, TROPHS, CBC, GFR, MDW, ANEU, BMP #### [address] [address] Eosinophils/100 WBC (Bld) 1.7 % Normal 0.0-6.0 [facility] Comment on above: Performed By: #### A DIFF, PBNP, TROPHS, CBC, GFR, MDW, ANEU, BMP #### [address] [address] Lymphocyte, Absolute 2.3 10 3/mcL Normal 0.9-4.3 [facility] Comment on above: Performed By: #### A DIFF, PBNP, TROPHS, CBC, GFR, MDW, ANEU, BMP #### [address] [address] Lymphocytes/100 WBC (Bld) 21.0 % Normal 20.0-40.0 [facility] Comment on above: Performed By: #### A DIFF, PBNP, TROPHS, CBC, GFR, MDW, ANEU, BMP #### [address] [address] Monocyte, Absolute 1.0 10 3/mcL Normal 0.1-1.[address] [facility] Comment on above: Performed By: #### A DIFF, PBNP, TROPHS, CBC, GFR, MDW, ANEU, BMP #### [address] [address] Monocytes/100 WBC (Bld) 9.2 % Normal 2.0-13.0 [facility] Comment on above: Performed By: #### A DIFF, PBNP, TROPHS, CBC, GFR, MDW, ANEU, BMP #### [address] [address] Neutrophils/100 WBC (Bld) 67.4 % Normal 50.0-75.0 [facility] Comment on above: Performed By: #### A DIFF, PBNP, TROPHS, CBC, GFR, MDRoshan, MARK, BMP #### [address] [address] .GFRon 02-19-2025 Estimated Glomerular Filtration Rate 90 ml/min/1.73sqm Normal [facility] Comment on above: Result Comment: Stages [...] #### A DIFF, PBNP, TROPHS, CBC, GFR, MDRosahn, MARK, BMP #### [address] [address] Estimated Glomerular Filtration Rate 81 ml/min/1.73sqm Normal [facility] Comment on above: Result Comment: Stages [...] TROPHS, CBC, GFR, MDW, ANEU, BMP #### [address] [address] .MDWon 02-19-2025 Monocyte Distribution Width 18.70 Normal 0.00-20.00 [facility] Comment on above: Result Comment: For ED adult patients suspected of sepsis, MDW<=20.0 does not rule out sepsis or risk of sepsis Performed By: #### A DIFF, PBNP, TROPHS, CBC, GFR, MDW, ANEU, BMP #### [address] [address] .NEUABSon 02-19-2025 Neutrophil, Absolute 7.2 10 3/mcL Normal 2.3-8.1 [facility] Comment on above: Performed By: #### A DIFF, PBNP, TROPHS, CBC, GFR, MDW, ANEU, BMP #### [address] [address] Neutrophil, Absolute 7.3 10 3/mcL Normal 2.3-8.1 [facility] Comment on above: Performed By: #### A DIFF, PBNP, TROPHS, CBC, GFR, MDW, ANEU, BMP #### [address] [address] BMPon 02-19-2025 BUN/Creatinine Ratio 19 ratio Normal 7-[address] [facility] Comment on above: Performed By: #### A DIFF, PBNP, TROPHS, CBC, GFR, MDW, ANEU, BMP #### [address] [address] Calcium [Mass/Vol] 8.2 mg/dL Low 8.4-10.2 [facility] Comment on above: Performed By: #### A DIFF, PBNP, TROPHS, CBC, GFR, MDW, ANEU, BMP #### [address] [address] Chloride [Moles/Vol] 108 mmol/L High 98-[address] [facility] Comment on above: Performed By: #### A DIFF, PBNP, TROPHS, CBC, GFR, MDW, ANEU, BMP #### [address] [address] CO2 [Moles/Vol] 28 mmol/L Normal 23-31 [facility] Comment on above: Performed By: #### A DIFF, PBNP, TROPHS, CBC, GFR, MDW, ANEU, BMP #### [address] [address] Creatinine [Mass/Vol] 0.72 mg/dL Normal 0.55-1.02 [facility] Comment on above: Result Comment: Test ing performed on Siemens Dimension EXL analyzer using a modified kinetic [place] technique. Performed By: #### A DIFF, PBNP, TROPHS, CBC, GFR, MDW, ANEU, BMP #### [address] [address] Electrolyte Balance 7.0 mEq/L Normal 4.0-15.0 [facility] Comment on above: Performed By: #### A DIFF, PBNP, TROPHS, CBC, GFR, MDW, ANEU, BMP #### [address] [address] Glucose [Mass/Vol] 132 mg/dL High 80-115 [facility] Comment on above: Performed By: #### A DIFF, PBNP, TROPHS, CBC, GFR, MDW, ANEU, BMP #### [address] [address] Potassium [Moles/Vol] 4.7 mmol/L Normal 3.5-5.1 [facility] Comment on above: Performed By: #### A DIFF, PBNP, TROPHS, CBC, GFR, MDW, ANEU, BMP #### [address] [address] Sodium [Moles/Vol] 143 mmol/L Normal 136-145 [facility] Comment on above: Performed By: #### A DIFF, PBNP, TROPHS, CBC, GFR, MDW, ANEU, BMP #### [address] [address] Urea nitrogen [Mass/Vol] 14 mg/dL Normal 7-18 [facility] Comment on above: Performed By: #### A DIFF, PBNP, TROPHS, CBC, GFR, MDW, ANEU, BMP #### [address] [address] CBCon 02-19-2025 Erythrocyte distribution width (RBC) [Ratio] 15.7 % High 11.5-15.5 [facility] Comment on above: Performed By: #### A DIFF, PBNP, TROPHS, CBC, GFR, MDW, ANEU, BMP #### [place] [address] Hematocrit (Bld) [Volume fraction] 38.8 % Normal 34.0-46.0 [facility] Comment on above: Performed By: #### A DIFF, PBNP, TROPHS, CBC, GFR, MDW, ANEU, BMP #### [place] [address] Hgb 12.6 G/dL Normal 12.0-16.0 [facility] Comment on above: Performed By: #### A DIFF, PBNP, TROPHS, CBC, GFR, MDW, ANEU, BMP #### [place] [address] MCH (RBC) [Entitic mass] 30.0 pg Normal 27.0-33.0 [facility] Comment on above: Performed By: #### A DIFF, PBNP, TROPHS, CBC, GFR, MDW, ANEU, BMP #### [place] [address] MCHC 32.5 G/dL Normal 32.0-36.0 [facility] Comment on above: Performed By: #### A DIFF, PBNP, TROPHS, CBC, GFR, MDW, ANEU, BMP #### [place] [phone] MCV (RBC) [Entitic vol] 92.2 fL Normal 80.0-99.0 [facility] Comment on above: Performed By: #### A DIFF, PBNP, TROPHS, CBC, GFR, MDW, ANEU, BMP #### [address] [address] Platelet 310 10 3/mcL Normal 150-450 [facility] Comment on above: Performed By: #### A DIFF, PBNP, TROPHS, CBC, GFR, MDW, ANEU, BMP #### [address] [address] Platelet mean volume (Bld) [Entitic vol] 8.6 fL Normal 6.6-10.5 [facility] Comment on above: Performed By: #### A DIFF, PBNP, TROPHS, CBC, GFR, MDW, ANEU, BMP #### [address] [address] RBC 4.21 10 6/mcL Normal 4.10-5.30 [facility] Comment on above: Performed By: #### A DIFF, PBNP, TROPHS, CBC, GFR, MDW, ANEU, BMP #### [address] [address] WBC 9.8 10 3/mcL Normal 4.5-10.8 [facility] Comment on above: Performed By: #### A DIFF, PBNP, TROPHS, CBC, GFR, MDW, ANEU, BMP #### [address] [address] Erythrocyte distribution width (RBC) [Ratio] 16.0 % High 11.5-15.5 [facility] Comment on above: Performed By: #### A DIFF, PBNP, TROPHS, CBC, GFR, MDW, ANEU, BMP #### [address] [address] Hematocrit (Bld) [Volume fraction] 39.3 % Normal 34.0-46.0 [facility] Comment on above: Performed By: #### A DIFF, PBNP, TROPHS, CBC, GFR, MDW, ANEU, BMP #### [address] [address] Hgb 12.8 G/dL Normal 12.0-16.0 [facility] Comment on above: Performed By: #### A DIFF, PBNP, TROPHS, CBC, GFR, MDW, ANEU, BMP #### [address] [address] MCH (RBC) [Entitic mass] 29.7 pg Normal 27.0-33.0 [facility] Comment on above: Performed By: #### A DIFF, PBNP, TROPHS, CBC, GFR, MDW, ANEU, BMP #### [address] [address] MCHC 32.6 G/dL Normal 32.0-36.0 [facility] Comment on above: Performed By: #### A DIFF, PBNP, TROPHS, CBC, GFR, MDW, ANEU, BMP #### [place] [address] MCV (RBC) [Entitic vol] 91.1 fL Normal 80.0-99.0 [facility] Comment on above: Performed By: #### A DIFF, PBNP, TROPHS, CBC, GFR, MDW, ANEU, BMP #### [address] [address] Platelet 327 10 3/mcL Normal 150-450 [facility] Comment on above: Performed By: #### A DIFF, PBNP, TROPHS, CBC, GFR, MDW, ANEU, BMP #### [place] [address] Platelet mean volume (Bld) [Entitic vol] 8.2 fL Normal 6.6-10.5 [facility] Comment on above: Performed By: #### A DIFF, PBNP, TROPHS, CBC, GFR, MDW, ANEU, BMP #### [place] [address] RBC 4.31 10 6/mcL Normal 4.10-5.30 [facility] Comment on above: Performed By: #### A DIFF, PBNP, TROPHS, CBC, GFR, MDW, ANEU, BMP #### [place] [address] WBC 10.8 10 3/mcL Normal 4.5-10.8 [facility] Comment on above: Performed By: #### A DIFF, PBNP, TROPHS, CBC, GFR, MDW, ANEU, BMP #### [address] [address] CMPon 02-19-2025 Albumin Level 3.3 G/dL Low 3.4-4.8 [facility] Comment on above: Performed By: #### A DIFF, PBNP, TROPHS, CBC, GFR, MDW, ANEU, BMP #### [address] [address] Albumin/Globulin [Mass ratio] 1.0 {ratio} Low 1.1-2.5 [facility] Comment on above: Performed By: #### A DIFF, PBNP, TROPHS, CBC, GFR, MDW, ANEU, BMP #### [address] [address] ALP [Catalytic activity/Vol] 104 U/L Normal 40-135 [facility] Comment on above: Performed By: #### A DIFF, PBNP, TROPHS, CBC, GFR, MDW, ANEU, BMP #### [address] [address] ALT [Catalytic activity/Vol] 36 U/L Normal 14-59 [facility] Comment on above: Performed By: #### A DIFF, PBNP, TROPHS, CBC, GFR, MDW, ANEU, BMP #### [address] [address] AST [Catalytic activity/Vol] 38 U/L Normal 10-40 [facility] Comment on above: Performed By: #### A DIFF, PBNP, TROPHS, CBC, GFR, MDW, ANEU, BMP #### [address] [address] Bili Total 0.2 mg/dL Normal 0.2-1.0 [facility] Comment on above: Result Comment: Use of this assay is not recommended for patients undergoing treatment with eltrombopag due to the potential for falsely elevated results. Performed By: #### A DIFF, PBNP, TROPHS, CBC, GFR, MDW, ANEU, BMP #### [address] [address] BUN/Creatinine Ratio 19 ratio Normal 7-[address] [facility] Comment on above: Performed By: #### A DIFF, PBNP, TROPHS, CBC, GFR, MDW, ANEU, BMP #### [address] [address] Calcium [Mass/Vol] 8.2 mg/dL Low 8.4-10.2 [facility] Comment on above: Performed By: #### A DIFF, PBNP, TROPHS, CBC, GFR, MDW, ANEU, BMP #### [address] [address] Chloride [Moles/Vol] 106 mmol/L Normal 98-[address] [facility] Comment on above: Performed By: #### A DIFF, PBNP, TROPHS, CBC, GFR, MDW, ANEU, BMP #### [address] [address] CO2 [Moles/Vol] 32 mmol/L High 23-31 [facility] Comment on above: Performed By: #### A DIFF, PBNP, TROPHS, CBC, GFR, MDW, ANEU, BMP #### [address] [address] Creatinine [Mass/Vol] 0.79 mg/dL Normal 0.55-1.02 [facility] Comment on above: Result Comment: Test ing performed on Siemens Dimension EXL analyzer using a modified kinetic [place] technique. Performed By: #### A DIFF, PBNP, TROPHS, CBC, GFR, MDW, ANEU, BMP #### [address] [address] Electrolyte Balance 4.0 mEq/L Normal 4.0-15.0 [facility] Comment on above: Performed By: #### A DIFF, PBNP, TROPHS, CBC, GFR, MDW, ANEU, BMP #### [address] [address] Globulin 3.2 G/dL Normal 1.5-3.8 [facility] Comment on above: Performed By: #### A DIFF, PBNP, TROPHS, CBC, GFR, MDW, ANEU, BMP #### [address] [address] Glucose [Mass/Vol] 114 mg/dL Normal 80-115 [facility] Comment on above: Performed By: #### A DIFF, PBNP, TROPHS, CBC, GFR, MDW, ANEU, BMP #### [address] [address] Potassium [Moles/Vol] 4.2 mmol/L Normal 3.5-5.1 [facility] Comment on above: Performed By: #### A DIFF, PBNP, TROPHS, CBC, GFR, MDW, ANEU, BMP #### [address] [address] Sodium [Moles/Vol] 142 mmol/L Normal 136-145 [facility] Comment on above: Performed By: #### A DIFF, PBNP, TROPHS, CBC, GFR, MDW, ANEU, BMP #### [address] [address] Total Protein 6.5 G/dL Normal 6.4-8.2 [facility] Comment on above: Performed By: #### A DIFF, PBNP, TROPHS, CBC, GFR, MDW, ANEU, BMP #### [address] [address] Urea nitrogen [Mass/Vol] 15 mg/dL Normal 7-18 [facility] Comment on above: Performed By: #### A DIFF, PBNP, TROPHS, CBC, GFR, MDW, ANEU, BMP #### [address] [address] CVFLURVon 02-19-2025 FLU A PCR Negative Normal Negative [facility] Comment on above: Performed By: #### M RSAPCR #### [place] [address] #### CVFLURV #### [place] [address] FLU B PCR Negative Normal Negative [facility] Comment on above: Performed By: #### M RSAPCR #### [address] [address] #### CVFLURV #### [place] [address] RSV PCR Negative Normal Negative [facility] Comment on above: Performed By: #### M RSAPCR #### [place] [address] #### CVFLURV #### [place] [address] SARS-CoV-2 (COVID-19) RNA IVANA+probe Ql (Unsp spec) Negative Normal Negative [facility] Comment on above: Result Comment: Resu [...] results. Performed By: #### M RSAPCR #### [place] [address] #### CVFLURV #### [place] [address] LACon 02-19-2025 Lactic Acid Lvl 1.1 mmol/L Normal 0.4-2.0 [facility] Comment on above: Performed By: #### A DIFF, PBNP, TROPHS, CBC, GFR, MDW, ANEU, BMP #### [address] [address] MGon 02-19-2025 Magnesium [Mass/Vol] 1.8 mg/dL Normal 1.8-2.[address] [facility] Comment on above: Performed By: #### A DIFF, PBNP, TROPHS, CBC, GFR, MDW, ANEU, BMP #### [address] [address] MRSAPCRon 02-19-2025 MRSA (PCR) Not detected Normal Not Detected [facility] Comment on above: Result Comment: Note s [id number] Performed By: #### M RSAPCR #### [place] [address] #### CVFLURV #### [place] [address] MRSA PCR Int Normal [facility] Comment on above: Result Comment: MRSA [...] Below Performed By: #### M RSAPCR #### [place] [address] #### CVFLURV #### [address] [address] PBNPon 02-19-2025 Natriuretic peptide B (Bld) [Mass/Vol] 2711 pg/mL High 0-125 [facility] Comment on above: Result Comment: NT-p roBNP results of less than 300 pg/mL effectively rules out acute congestive heart failure with 99% negative predictive value. Performed By: #### A DIFF, PBNP, TROPHS, CBC, GFR, MDW, ANEU, BMP #### [place] [id number] RESCVIDon 02-19-2025 Adenovirus Not detected Normal Not Detected [facility] Comment on above: Performed By: #### M RSAPCR #### [place] [address] #### CVFLURV #### [address] [address] Bordetella Parapertussis Not detected Normal Not Detected [facility] Comment on above: Performed By: #### M RSAPCR #### [place] [address] #### CVFLURV #### [address] [address] Bordetella Pertussis Not detected Normal Not Detected [facility] Comment on above: Performed By: #### M RSAPCR #### [place] [address] #### CVFLURV #### [address] [address] Chlamydophila pneumoniae Not detected Normal Not Detected [facility] Comment on above: Performed By: #### M RSAPCR #### [place] [address] #### CVFLURV #### [address] [address] Coronavirus 229E (Not COVID-19) Not detected Normal Not Detected [facility] Comment on above: Performed By: #### M RSAPCR #### [place] [address] #### CVFLURV #### [address] [address] Coronavirus HKU1 (Not COVID-19) Not detected Normal Not Detected [facility] Comment on above: Performed By: #### M RSAPCR #### [place] [id number] #### CVFLURV #### [address] [address] Coronavirus NL63 (Not COVID-19) Not detected Normal Not Detected [facility] Comment on above: Performed By: #### M RSAPCR #### [facility] [address] [place] [address] #### CVFLURV #### [address] [address] Coronavirus OC43 (Not COVID-19) Not detected Normal Not Detected [facility] Comment on above: Performed By: #### M RSAPCR #### [facility] [address] [place], [place] [id number] #### CVFLURV #### [address] [address] Human Metapneumovirus Not detected Normal Not Detected [facility] Comment on above: Performed By: #### M RSAPCR #### [place] [id number] #### CVFLURV #### [address] [address] Influenza A Not detected Normal Not Detected [facility] Comment on above: Performed By: #### M RSAPCR #### [place] [id number] #### CVFLURV #### [address] [address] Influenza B Not detected Normal Not Detected [facility] Comment on above: Performed By: #### M RSAPCR #### [address] [address] #### CVFLURV #### [address] [address] Mycoplasma pneumoniae Not detected Normal Not Detected [facility] Comment on above: Performed By: #### M RSAPCR #### [facility] [address] [place] [address] #### CVFLURV #### [address] [address] Parainfluenza 1 Not detected Normal Not Detected [facility] Comment on above: Performed By: #### M RSAPCR #### [facility] [address] [place], [place] [id number] #### CVFLURV #### [address] [address] Parainfluenza 2 Not detected Normal Not Detected [facility] Comment on above: Performed By: #### M RSAPCR #### [place] [address] #### CVFLURV #### [address] [address] Parainfluenza 3 Not detected Normal Not Detected [facility] Comment on above: Performed By: #### M RSAPCR #### [place] [address] #### CVFLURV #### [address] [address] Parainfluenza 4 Not detected Normal Not Detected [facility] Comment on above: Performed By: #### M RSAPCR #### [place] [address] #### CVFLURV #### [address] [address] Respiratory Syncytial Virus Not detected Normal Not Detected [facility] Comment on above: Performed By: #### M RSAPCR #### [place] [address] #### CVFLURV #### [address] [address] Rhinovirus/Enterovirus Not detected Normal Not Detected [facility] Comment on above: Performed By: #### M RSAPCR #### [place] [address] #### CVFLURV #### [address] [address] SARS-CoV-2 (COVID-19) RNA IVANA+probe Ql (Unsp spec) Not detected Normal Not Detected [facility] Comment on above: Result Comment: This assay has been validated in the [facility] for use with nasopharyngeal specimens in [facility]. If a non-validated specimen or test collection [...] authorities. Performed By: #### M RSAPCR #### [place] [address] #### CVFLURV #### [address] [address] [facility] 02-19-2025 High Sensitivity Troponin I 27 ng/L Normal 0-51 [facility] Comment on above: Result Comment: High Sensitive Troponin I Reference Ranges: Female: 0-51 ng/L Male: 0-76 ng/L Testing performed on [employer] using a homogeneous sandwich chemiluminescent immunoassay based on [email or web address] technology. Performed By: #### A DIFF, PBNP, TROPHS, CBC, GFR, MDW, ANEU, BMP #### [address] [address] XR CHEST 1 VIEWon 02-19-2025 XR CHEST [...] 02/19/2025 1:37:16 AM Ordering Provider: CORNELIUS Rivero [facility] US ABDOMEN COMPLETEon 2024 US ABDOMEN [...] 02/03/2025 11:50:40 AM Ordering Provider: EMMA Rivero [facility] .Auto Diffon 12-11-2024 Basophil, Absolute 0.1 10 3/mcL Normal 0.0-0.[address] [facility] Comment on above: Performed By: #### M RSAPCR #### [place] [address] #### CVFLURV #### [address] [address] Basophils/100 WBC (Bld) 1.4 % Normal 0.0-2.5 [facility] Comment on above: Performed By: #### M RSAPCR #### [place] [address] #### CVFLURV #### [address] [address] Eosinophil, Absolute 0.2 10 3/mcL Normal 0.0-0.7 [facility] Comment on above: Performed By: #### M RSAPCR #### [place] [address] #### CVFLURV #### [address] [address] Eosinophils/100 WBC (Bld) 2.8 % Normal 0.0-7.0 [facility] Comment on above: Performed By: #### M RSAPCR #### [place] [address] #### CVFLURV #### [address] [address] Lymphocyte, Absolute 2.1 10 3/mcL Normal 0.9-4.3 [facility] Comment on above: Performed By: #### M RSAPCR #### [place] [address] #### CVFLURV #### [address] [address] Lymphocytes/100 WBC (Bld) 29.6 % Normal 20.0-40.0 [facility] Comment on above: Performed By: #### M RSAPCR #### [address] [address] #### CVFLURV #### [address] [address] Monocyte, Absolute 0.8 10 3/mcL Normal 0.1-1.[address] [facility] Comment on above: Performed By: #### M RSAPCR #### [place] [address] #### CVFLURV #### [address] [address] Monocytes/100 WBC (Bld) 11.4 % Normal 2.0-13.0 [facility] Comment on above: Performed By: #### M RSAPCR #### [place] [address] #### CVFLURV #### [address] [address] Neutrophils/100 WBC (Bld) 54.8 % Normal 50.0-75.0 [facility] Comment on above: Performed By: #### M RSAPCR #### [place] [address] #### CVFLURV #### [address] [address] .GFRon 12-11-2024 GFR Non- 56 ml/min/1.73sqm Normal [facility] Comment on above: Result Comment: GFR [...] TROPHS, CBC, GFR, MDW, ANEU, BMP #### [address] [address] GFR 67 ml/min/1.73sqm Normal [facility] Comment on above: Result Comment: GFR [...] TROPHS, CBC, GFR, MDW, ANEU, BMP #### [address] [address] .NEUABSon 12-11-2024 Neutrophil, Absolute 3.9 10 3/mcL Normal 2.3-8.1 [facility] Comment on above: Performed By: #### M RSAPCR #### [address] [address] #### CVFLURV #### [address] [address] BMPon 12-11-2024 BUN/Creatinine Ratio 14 ratio Normal 7-[address] [facility] Comment on above: Performed By: #### A DIFF, PBNP, TROPHS, CBC, GFR, MDW, ANEU, BMP #### [address] [address] Chloride [Moles/Vol] 105 mmol/L Normal 98-[address] [facility] Comment on above: Performed By: #### A DIFF, PBNP, TROPHS, CBC, GFR, MDW, ANEU, BMP #### [address] [address] CO2 [Moles/Vol] 30 mmol/L Normal 23-31 [facility] Comment on above: Performed By: #### A DIFF, PBNP, TROPHS, CBC, GFR, MDW, ANEU, BMP #### [address] [address] Creatinine [Mass/Vol] 0.99 mg/dL Normal 0.55-1.02 [facility] Comment on above: Result Comment: Test ing performed on Siemens Dimension EXL analyzer using a modified kinetic [place] technique. Performed By: #### A DIFF, PBNP, TROPHS, CBC, GFR, MDW, ANEU, BMP #### [address] [address] Electrolyte Balance 8.0 mEq/L Normal 4.0-15.0 [facility] Comment on above: Performed By: #### A DIFF, PBNP, TROPHS, CBC, GFR, MDW, ANEU, BMP #### [address] [address] Glucose [Mass/Vol] 117 mg/dL High 80-115 [facility] Comment on above: Performed By: #### A DIFF, PBNP, TROPHS, CBC, GFR, MDW, ANEU, BMP #### [address] [address] Potassium [Moles/Vol] 4.7 mmol/L Normal 3.5-5.1 [facility] Comment on above: Performed By: #### A DIFF, PBNP, TROPHS, CBC, GFR, MDW, ANEU, BMP #### [address] [address] Sodium [Moles/Vol] 143 mmol/L Normal 136-145 [facility] Comment on above: Performed By: #### A DIFF, PBNP, TROPHS, CBC, GFR, MDW, ANEU, BMP #### [address] [place] [address] Urea nitrogen [Mass/Vol] 14 mg/dL Normal 7-18 [facility] Comment on above: Performed By: #### A DIFF, PBNP, TROPHS, CBC, GFR, MDW, ANEU, BMP #### [address] [address] Calcium [Mass/Vol] 9.8 mg/dL Normal 8.4-10.2 [facility] Comment on above: Performed By: #### A DIFF, PBNP, TROPHS, CBC, GFR, MDW, ANEU, BMP #### [address] [address] CBCon 12-11-2024 Erythrocyte distribution width (RBC) [Ratio] 14.6 % Normal 11.5-15.5 [facility] Comment on above: Performed By: #### M RSAPCR #### [place] [address] #### CVFLURV #### [address] [address] Hematocrit (Bld) [Volume fraction] 48.2 % High 34.0-46.0 [facility] Comment on above: Performed By: #### M RSAPCR #### [place] [address] #### CVFLURV #### [address] [address] Hgb 15.6 G/dL Normal 12.0-16.0 [facility] Comment on above: Performed By: #### M RSAPCR #### [place] [address] #### CVFLURV #### [address] [address] MCH (RBC) [Entitic mass] 30.5 pg Normal 27.0-33.0 [facility] Comment on above: Performed By: #### M RSAPCR #### [place] [address] #### CVFLURV #### [address] [address] MCHC 32.4 G/dL Normal 32.0-36.0 [facility] Comment on above: Performed By: #### M RSAPCR #### [place] [address] #### CVFLURV #### [address] [address] MCV (RBC) [Entitic vol] 94.2 fL Normal 80.0-99.0 [facility] Comment on above: Performed By: #### M RSAPCR #### [place] [address] #### CVFLURV #### [address] [address] Platelet 370 10 3/mcL Normal 150-450 [facility] Comment on above: Performed By: #### M RSAPCR #### [place] [address] #### CVFLURV #### [address] [address] Platelet mean volume (Bld) [Entitic vol] 9.1 fL Normal 6.6-10.5 [facility] Comment on above: Performed By: #### M RSAPCR #### [place] [address] #### CVFLURV #### [place] [address] RBC 5.12 10 6/mcL Normal 4.10-5.30 [facility] Comment on above: Performed By: #### M RSAPCR #### [place] [address] #### CVFLURV #### [place] [address] WBC 7.0 10 3/mcL Normal 4.5-10.8 [facility] Comment on above: Performed By: #### M RSAPCR #### [place] [address] #### CVFLURV #### [facility] [place] [address] [place], [place] [address] LABORATORYOrdered By: SYSTEM SYSTEM on 12-11-2024 Basophils [...] Comment on above: Interpretive Data: Luis reinoso [employer] (CHEST, 1992, 102:[id number]) [...] Coag (PPP) [Time] 10.4 s Normal 9.0-14.[address] [facility] Comment on above: Performed By: #### M RSAPCR #### [address] [address] #### CVFLURV #### [facility] [address] [place], [place] [address] PT International Ratio 0.9 Normal [facility] Comment on above: Result Comment: [employer] (CHEST, 1992, 102:[id number]) recommended therapeutic range for oral anticoagulant therapy is: LOW RISK: Prophylaxis of venous thrombosis INR: 2.0-3.0 Treatment of pulmonary embolism 2.0-3.0 Prevention of systemic embolism 2.0-3.0 HIGH RISK: Mechanical prosthetic valves 2.5-3.5 Performed By: #### M RSAPCR #### [facility] [address] [place] [address] #### CVFLURV #### [address] [address] .Auto Diffon 10-23-2024 Basophil, Absolute 0.1 10 3/mcL Normal 0.0-0.[address] [facility] Comment on above: Performed By: #### A DIFF, PBNP, TROPHS, CBC, GFR, MDW, ANEU, BMP #### [address] [address] Basophils/100 WBC (Bld) 1.7 % Normal 0.0-2.5 [facility] Comment on above: Performed By: #### A DIFF, PBNP, TROPHS, CBC, GFR, MDW, ANEU, BMP #### [address] [address] Eosinophil, Absolute 0.1 10 3/mcL Normal 0.0-0.7 [facility] Comment on above: Performed By: #### A DIFF, PBNP, TROPHS, CBC, GFR, MDW, ANEU, BMP #### [address] [address] Eosinophils/100 WBC (Bld) 2.2 % Normal 0.0-7.0 [facility] Comment on above: Performed By: #### A DIFF, PBNP, TROPHS, CBC, GFR, MDW, ANEU, BMP #### [address] [address] Lymphocyte, Absolute 2.0 10 3/mcL Normal 0.9-4.3 [facility] Comment on above: Performed By: #### A DIFF, PBNP, TROPHS, CBC, GFR, MDW, ANEU, BMP #### [address] [address] Lymphocytes/100 WBC (Bld) 31.1 % Normal 20.0-40.0 [facility] Comment on above: Performed By: #### A DIFF, PBNP, TROPHS, CBC, GFR, MDW, ANEU, BMP #### [address] [address] Monocyte, Absolute 0.8 10 3/mcL Normal 0.1-1.[address] [facility] Comment on above: Performed By: #### A DIFF, PBNP, TROPHS, CBC, GFR, MDW, ANEU, BMP #### [address] [address] Monocytes/100 WBC (Bld) 12.1 % Normal 2.0-13.0 [facility] Comment on above: Performed By: #### A DIFF, PBNP, TROPHS, CBC, GFR, MDW, ANEU, BMP #### [address] [address] Neutrophils/100 WBC (Bld) 52.9 % Normal 50.0-75.0 [facility] Comment on above: Performed By: #### A DIFF, PBNP, TROPHS, CBC, GFR, MDW, ANEU, BMP #### [address] [address] .GFRon 10-23-2024 GFR 102 ml/min/1.73sqm Normal [facility] Comment on above: Result Comment: GFR [...] TROPHS, CBC, GFR, MDW, ANEU, BMP #### [address] [address] GFR Non- 84 ml/min/1.73sqm Normal [facility] Comment on above: Result Comment: GFR [...] TROPHS, CBC, GFR, MDW, ANEU, BMP #### [address] [address] .NEUABSon 10-23-2024 Neutrophil, Absolute 3.4 10 3/mcL Normal 2.3-8.1 [facility] Comment on above: Performed By: #### A DIFF, PBNP, TROPHS, CBC, GFR, MDW, ANEU, BMP #### [address] [address] A1Con 10-23-2024 Glucose [Mass/Vol] 117 mg/dL Normal [facility] Comment on above: Result Comment: Johnna mated Average Glucose calculated by equation ((28.7xA1C)-46.7) Estimated average glucose (eAG) is a calculated value from Hemoglobin A1C and is outside industrial sales representative of the average blood glucose level in the last 2-3 month period. Normal range: less than 114 mg/dL Performed By: #### A DIFF, PBNP, TROPHS, CBC, GFR, MDW, ANEU, BMP #### [address] [address] HbA1c (Bld) [Mass fraction] 5.7 % Normal 4.3-6.4 [facility] Comment on above: Performed By: #### A DIFF, PBNP, TROPHS, CBC, GFR, MDW, ANEU, BMP #### [address] [address] CBCon 10-23-2024 Erythrocyte distribution width (RBC) [Ratio] 14.8 % Normal 11.5-15.5 [facility] Comment on above: Performed By: #### A DIFF, PBNP, TROPHS, CBC, GFR, MDW, ANEU, BMP #### [address] [address] Hematocrit (Bld) [Volume fraction] 44.0 % Normal 34.0-46.0 [facility] Comment on above: Performed By: #### A DIFF, PBNP, TROPHS, CBC, GFR, MDW, ANEU, BMP #### [address] [address] Hgb 14.5 G/dL Normal 12.0-16.0 [facility] Comment on above: Performed By: #### A DIFF, PBNP, TROPHS, CBC, GFR, MDW, ANEU, BMP #### [address] [address] MCH (RBC) [Entitic mass] 31.5 pg Normal 27.0-33.0 [facility] Comment on above: Performed By: #### A DIFF, PBNP, TROPHS, CBC, GFR, MDW, ANEU, BMP #### [address] [address] MCHC 32.9 G/dL Normal 32.0-36.0 [facility] Comment on above: Performed By: #### A DIFF, PBNP, TROPHS, CBC, GFR, MDW, ANEU, BMP #### [address] [address] MCV (RBC) [Entitic vol] 95.6 fL Normal 80.0-99.0 [facility] Comment on above: Performed By: #### A DIFF, PBNP, TROPHS, CBC, GFR, MDW, ANEU, BMP #### [address] [address] Platelet 365 10 3/mcL Normal 150-450 [facility] Comment on above: Performed By: #### A DIFF, PBNP, TROPHS, CBC, GFR, MDW, ANEU, BMP #### [address] [address] Platelet mean volume (Bld) [Entitic vol] 8.8 fL Normal 6.6-10.5 [facility] Comment on above: Performed By: #### A DIFF, PBNP, TROPHS, CBC, GFR, MDW, ANEU, BMP #### [address] [address] RBC 4.60 10 6/mcL Normal 4.10-5.30 [facility] Comment on above: Performed By: #### A DIFF, PBNP, TROPHS, CBC, GFR, MDW, ANEU, BMP #### [address] [address] WBC 6.5 10 3/mcL Normal 4.5-10.8 [facility] Comment on above: Performed By: #### A DIFF, PBNP, TROPHS, CBC, GFR, MDW, ANEU, BMP #### [address] [address] CMPon 10-23-2024 Albumin Level 3.4 G/dL Normal 3.4-4.8 [facility] Comment on above: Performed By: #### A DIFF, PBNP, TROPHS, CBC, GFR, MDW, ANEU, BMP #### [address] [address] Albumin/Globulin [Mass ratio] 1.0 {ratio} Low 1.1-2.5 [facility] Comment on above: Performed By: #### A DIFF, PBNP, TROPHS, CBC, GFR, MDW, ANEU, BMP #### [address] [id number] ALP [Catalytic activity/Vol] 99 U/L Normal 40-135 [facility] Comment on above: Performed By: #### A DIFF, PBNP, TROPHS, CBC, GFR, MDW, ANEU, BMP #### [address] [id number] ALT [Catalytic activity/Vol] 19 U/L Normal 14-59 [facility] Comment on above: Performed By: #### A DIFF, PBNP, TROPHS, CBC, GFR, MDW, ANEU, BMP #### [address] [address] AST [Catalytic activity/Vol] 17 U/L Normal 10-40 [facility] Comment on above: Performed By: #### A DIFF, PBNP, TROPHS, CBC, GFR, MDW, ANEU, BMP #### [address] [address] Bili Total 0.4 mg/dL Normal 0.2-1.0 [facility] Comment on above: Result Comment: Use of this assay is not recommended for patients undergoing treatment with eltrombopag due to the potential for falsely elevated results. Performed By: #### A DIFF, PBNP, TROPHS, CBC, GFR, MDW, ANEU, BMP #### [address] [address] BUN/Creatinine Ratio 10 ratio Normal 7-[address] [facility] Comment on above: Performed By: #### A DIFF, PBNP, TROPHS, CBC, GFR, MDW, ANEU, BMP #### [address] [address] Calcium [Mass/Vol] 9.2 mg/dL Normal 8.4-10.2 [facility] Comment on above: Performed By: #### A DIFF, PBNP, TROPHS, CBC, GFR, MDW, ANEU, BMP #### [address] [address] Chloride [Moles/Vol] 103 mmol/L Normal 98-[address] [facility] Comment on above: Performed By: #### A DIFF, PBNP, TROPHS, CBC, GFR, MDW, ANEU, BMP #### [address] [address] CO2 [Moles/Vol] 31 mmol/L Normal 23-31 [facility] Comment on above: Performed By: #### A DIFF, PBNP, TROPHS, CBC, GFR, MDW, ANEU, BMP #### [address] [address] Creatinine [Mass/Vol] 0.69 mg/dL Normal 0.55-1.02 [facility] Comment on above: Result Comment: Test ing performed on Siemens Dimension EXL analyzer using a modified kinetic [place] technique. Performed By: #### A DIFF, PBNP, TROPHS, CBC, GFR, MDW, ANEU, BMP #### [address] [address] Electrolyte Balance 6.0 mEq/L Normal 4.0-15.0 [facility] Comment on above: Performed By: #### A DIFF, PBNP, TROPHS, CBC, GFR, MDW, ANEU, BMP #### [address] [address] Globulin 3.4 G/dL Normal [facility] Comment on above: Performed By: #### A DIFF, PBNP, TROPHS, CBC, GFR, MDW, ANEU, BMP #### [address] [address] Glucose [Mass/Vol] 86 mg/dL Normal 80-115 [facility] Comment on above: Performed By: #### A DIFF, PBNP, TROPHS, CBC, GFR, MDW, ANEU, BMP #### [address] [address] Potassium [Moles/Vol] 4.7 mmol/L Normal 3.5-5.1 [facility] Comment on above: Performed By: #### A DIFF, PBNP, TROPHS, CBC, GFR, MDW, ANEU, BMP #### [address] [address] Sodium [Moles/Vol] 140 mmol/L Normal 136-145 [facility] Comment on above: Performed By: #### A DIFF, PBNP, TROPHS, CBC, GFR, MDW, ANEU, BMP #### [address] [place], [place] [address] Total Protein 6.8 G/dL Normal 6.4-8.2 [facility] Comment on above: Performed By: #### A DIFF, PBNP, TROPHS, CBC, GFR, MDW, ANEU, BMP #### [address] [place], [place] [address] Urea nitrogen [Mass/Vol] 7 mg/dL Normal 7-18 [facility] Comment on above: Performed By: #### A DIFF, PBNP, TROPHS, CBC, GFR, MDW, ANEU, BMP #### [address] [place], [place] [address] LABORATORYOrdered By: SYSTEM SYSTEM on 10-23-2024 Albumin [...] calculated value from Hemoglobin A1C and is outside industrial sales representative of the average blood glucose level [...] 10-23-2024 Cholesterol [Mass/Vol] 244 mg/dL High 0-200 [facility] Comment on above: Result Comment: Chol esterol Reference Interval: Less than 200 Desirable 200-239 Borderline high risk 240 and above High risk Performed By: #### A DIFF, PBNP, TROPHS, CBC, GFR, MDW, ANEU, BMP #### [address] [place], [place] [address] Cholesterol in HDL [Mass/Vol] 69 mg/dL High 40-60 [facility] Comment on above: Performed By: #### A DIFF, PBNP, TROPHS, CBC, GFR, MDW, ANEU, BMP #### [address] [place], [place] [address] Cholesterol in LDL [Mass/Vol] 148 mg/dL High 0-130 [facility] Comment on above: Performed By: #### A DIFF, PBNP, TROPHS, CBC, GFR, MDW, ANEU, BMP #### [address] [place], [place] [address] Triglyceride [Mass/Vol] 135 mg/dL Normal 0-150 [facility] Comment on above: Result Comment: Trig lyceride Reference Interval: Less than 150 Normal 150-199 Borderline high risk 200-499 High risk 500 or higher Very high risk Performed By: #### A DIFF, PBNP, TROPHS, CBC, GFR, MDW, ANEU, BMP #### [address] [address] TSHon 10-23-2024 TSH Qn 2.34 m[IU]/L Normal 0.36-3.74 [facility] Comment on above: Performed By: #### A DIFF, PBNP, TROPHS, CBC, GFR, MDW, ANEU, BMP #### [address] [address] CNCOon 10-02-2023 CNCO Letter Text Normal [facility] Frank 09-25-2023 CNPN Telephone (INTMWS) STEVEN KOENIG ([id number]) 1955 F Date Time Provider Department 09/25/23 ULISES HERMOSILLO INTMWS During your visit today, we recorded the following information about you: Nena Dozier RN 09/25/2023 4:02 PM Signed Patient calls to report that she is currently in [place] and will be there for the next several months. Patient is going to run out of medication and is unable to transfer prescriptions. Patient asking if provider would send prescriptions to [facility] pharmacy in [place]. Pended 90 day request for review. AAMIR [...] states she will be coming back to [place]. Is just in [place] for a few months to help out her son. 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 - ghuspfyltle-ehjczofvx-h ilanter (TRELEGY ELLIPTA) 200-62.5-25 mcg inhalation powder Inhale 1 Puff as instructed once daily. Problem List As Of Date 09/25/2023 Noted Resolved Essential hypertension [I10] 12/14/2015 Recurrent major depress (more content not included)... Normal [facility] CNCOon 09-06-2023 CNCO Letter Text Normal [facility] CNPNon 06-13-2023 LINDAN Telephone (TREV) STEVEN KOENIG ([id number]) 1955 F Date Time Provider Department 06/13/23 [facility] PROVIDER TREV During your visit today, we recorded the following information about you: Elizabeth Ly Ma 06/13/2023 4:26 PM Signed Patient contacted via telephone regarding upcoming NEW patient appointment with Dr. Harris on 06/14/23. Patient informed of the following: This is the [facility] calling regarding your upcoming appointment with Dr. Harris. To avoid a delay in your care, please bring any radiology images that have been done outside of the [facility] Systems on a disk to be [...] 1 TABLET BY MOUTH EVERY DAY - tdbqusvbofr-vsowihbcp-t ilanter (TRELEGY ELLIPTA) 200-62.5-25 mcg inhalation powder [...] minutes, none*09/28/2019 07/07/2020 PAD (peripheral artery disease) ([facility]) [I73.9] 09/28/2019 Anxiety and depression [F41.9, F32.A] 10/06/2019 Hypomagnesemia [E83.42] 10/22/2019 10/23/2019 Asthma [J45.909] 07/07/2020 07/07/2020 Prediabetes [R73.03] 02/04/2021 Chest pain [R07.9] 05/08/2021 Other chest pain [R07.89] 05/08/2021 Stenosis of carotid artery [I65.29] 05/08/2021 Mixed hyperlipidemia [E78.2] 05/08/2021 Abnormal stress test [R94.39] 08/26/2021 Dyspnea on exertion [R06.09] 08/26/2021 Coronary artery disease involving [place] tolbert*09/27/2021 Lung nodule [R91.1] 08/31/2022 History of hemoptysis [Z87.898] 11/20/2022 Encounter Status:Closed by ELIZABETH LY MA on 06/13/23 [facility] 06-10-2023 CNPN Telephone (INTMWS) STEVEN KOENIG ([id number]) 1955 F Date Time Provider Department 06/10/23 [...] to be taking. Please call her at [phone]. Ulises Hermosillo MD 06/13/2023 1:59 AM Signed [...] 1 TABLET BY MOUTH EVERY DAY - ggbqmbtqkow-scnuugqzz-x ilanter (TRELEGY ELLIPTA) 200-62.5-25 mcg inhalation powder [...] exertion [R06.09] 08/26/2021 Coronary artery disease involving [place] tolbert*09/27/2021 Lung nodule [R91.1] 08/31/2022 History of hemoptysis [Z87.898] 11/20/2022 Encounter Status:Closed by IRENA CANTOR LPN on 06/13/23 [facility] ([id number]) 1955 F Date Time Provider Department 05/10/23 ULISES HERMOSILLO INTWS During your visit today, we recorded the following information about you: Christina Franco RN 05/10/2023 1:00 PM Signed Patient calling and asking about lab results as well as x ray results to back. Please review and advise, AAMIR Diego APRN.HOME ENERGY CONSULTANT 05/10/2023 1:12 PM Signed Lipids are not [...] Will try cholesterol med uses [facility] in [place]. Please assist in scheduling with physical therapy and pain management. Allergies As of Date: 05/10/2023 (No Known Allergies) Date Reviewed: 05/09/2023 Reviewed by: Mely Griffin PA-C - Fully Assessed Reason for Visit: Results [95] Primary Visit Diagnosis:Radiculopathy , lumbar region [M54.16] Other Visit Diagnosis:Chronic midline low back pain with sciatica, sciatica laterality unspecified [M54.40, G89.29] Order(s):CONSULT TO PAIN MGT [459896] Order #: [id number]: 1 FUTURE rosuvastatin (CRESTOR) 5 mg tabletTake 1 tablet by mouth daily at bedtime.Disp: 30 tabletRfl: 2 CONSULT TO PHYSICAL THERAPY [9032] Order #: [id number]: 1 FUTURE Prescriptions as of 05/13/2023 - rosuvastatin (CRESTOR) 5 mg tablet Take 1 tablet by mouth daily at bedtime. - isosorbide mononitrate ER (IMDUR) 30 mg 24 hr tablet TAKE 1 TABLET BY MOUTH EVERY DAY - traZODone (DESYREL) 100 mg tablet Take 2 tablets by mouth daily at bedtime. - hmombivhzbp-kizahyrve-f ilanter (TRELEGY ELLIPTA) 200-62.5-25 mcg inhalation powder [...] exertion [R06.09] 08/26/2021 Coronary artery disease involving [place] tolbert*09/27/2021 Lung nodule [R91.1] 08/31/2022 History of hemoptysis [Z87.898] 11/20/2022 Prescriptions ordered this encounter Disp Refills Start End ROSUVASTATIN 5 MG TABLET 30 t* 2 05/13/2023 Route: ORAL Sig: Take 1 tablet by mouth daily at bedtime. Encounter Status:Closed by CHRISTINA FRANCO on 05/13/23 [facility] XR Lumbar spine 3 Viewson IMPRESSION: Lumbar spine degenerative changes with L4-5 disc space narrowing. 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: SRAVANI Transcribe Date/Time: May 10 2023 11:59A Dictated by : KARMEN MOSLEY MD This examination was interpreted and the report reviewed and electronically signed by: KARMEN MOSLEY MD on May 10 2023 12:02PM [facility] * * *Final [...] spine are presented. FINDINGS: There are five uex-mtb-miwidbp lumbar vertebrae. No fracture or subluxations are [...] spine are presented. FINDINGS: There are five vgn-nft-ihvxswc lumbar vertebrae. No fracture or subluxations are noted. Right-sided curvature/dextroscolios is is noted. There is L4-5 disc space narrowing. There is mild to moderate osteophyte formation. Others: There are vascular calcifications. A right-sided iliac vascular stent is noted. IMPRESSION IMPRESSION: Lumbar spine degenerative changes with L4-5 disc space narrowing. 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: SRAVANI Transcribe Date/Time: May 10 2023 11:59A Dictated by : KARMEN MOSLEY MD This examination was interpreted and the report reviewed and electronically signed by: KARMEN MOSLEY MD on May 10 2023 12:02PM [facility] XR Lumbar spine 3 ViewsOrder ed By: [facility] Provider on 05-10-2023 [facility] CNOVon 05-09-2023 CNOV Office Visit (PULMWS ) STEVEN KOENIG ([id number]) 1955 F Date Time Provider Department 05/09/23 [...] Anxiety 12/14/2015 Bipolar affective disorder, currently active ([facility]) 01/18/2016 Dr. Angie [facility] Chronic bronchitis ([facility]) 07/26/2016 Closed skull fracture ([facility]) 1994 [facility], [facility] Coronary artery disease DDD (degenerative disc disease), cervical Endometriosis 2007 Essential hypertension 12/14/2015 GERD (gastroesophageal reflux disease) 03/13/2019 History of colon polyps History of gastric ulcer 12/14/2015 HLD (hyperlipidemia) Injury of left facial nerve 1994 PAD (peripheral artery disease) ([facility]) 09/28/2019 Recurrent major depression in partial remission ([facility]) 12/14/2015 S/P drug eluting coronary stent placement 08/25/2021 LAD and Dg2 Spinal stenosis Allergies: No Known Allergies isosorbide mononitrate ER (IMDUR) 30 mg 24 hr tablet TAKE 1 TABLET BY MOUTH EVERY DAY traZODone (DESYREL) 100 mg tablet Take 2 tablets by mouth daily at bedtime. tsdmvmoungk-vfyyypijb-s ilanter (TRELEGY ELLIPTA) 200-62.5-25 mcg inhalation powder [...] NERVE DECOMPRESSION (more content not included)... Normal [facility] CBC W Auto Differential pane l (Bld)on 05-08-2023 Basophils (Bld) [#/Vol] 0.08 10*3/uL <0.11 k/uL [facility] Basophils/100 WBC (Bld) 1.0 % [facility] Differential cell count method Nom (Bld) Auto [facility] Eosinophils (Bld) [#/Vol] 0.19 10*3/uL <0.46 k/uL [facility] Eosinophils/100 WBC (Bld) 2.3 % [facility] Erythrocyte distribution width (RBC) [Ratio] 15.4 % High 11.5 - 15.0 % [facility] Hematocrit (Bld) [Volume fraction] 46.9 % High 36.0 - 46.0 % [facility] Hemoglobin (Bld) [Mass/Vol] 14.6 g/dL 11.5 - 15.5 g/dL [facility] Immature granulocytes (Bld) [#/Vol] <0.10 k/uL [facility] Immature granulocytes/100 WBC (Bld) 0.2 % [facility] Lymphocytes (Bld) [#/Vol] 2.23 10*3/uL 1.00 - 4.00 k/uL [facility] Lymphocytes/100 WBC (Bld) 27.3 % [facility] MCH (RBC) [Entitic mass] 30.7 pg 26.0 - 34.0 pg [facility] MCHC (RBC) [Mass/Vol] 31.1 g/dL 30.5 - 36.0 g/dL [facility] MCV (RBC) [Entitic vol] 98.5 fL 80.0 - 100.0 fL [facility] Monocytes (Bld) [#/Vol] 0.71 10*3/uL <0.87 k/uL [facility] Monocytes/100 WBC (Bld) 8.7 % [facility] Neut[facility] (Bld[facility] [#/Vol] 4.94 10*3/uL 1.45 - 7.50 k/uL [facility] Neutrophils/100 WBC (Bld) 60.5 % [facility] Nucleated RBC (Bld) [#/Vol] <0.01 k/uL [facility] Nucleated RBC/100 WBC (Bld) [Ratio] 0.0 /100 WBC [facility] Platelet mean volume (Bld) [Entitic vol] 10.5 fL 9.0 - 12.7 fL [facility] Platelets (Bld) [#/Vol] 408 10*3/uL High 150 - 400 k/uL [facility] RBC (Bld) [#/Vol] 4.76 10*6/uL 3.90 - 5.2 0 m/uL [facility] WBC (Bld) [#/Vol] 8.17 10*3/uL 3.70 - 11.00 k/uL [facility] Basophils (Bld) [#/Vol] 0.08 10*3/uL Normal <0.11 [facility] Comment on above: Order Comment: Speci men Type: BLOOD SPECIMENOrdering Facility: [facility] Address: [address] [address] Performed By: #### 5 7021-8 ####[facility] LABCLIA [id number] [address] [place] Basophils/100 WBC (Bld) 1.0 % Normal [facility] Comment on above: Order Comment: Speci men Type: BLOOD SPECIMENOrdering Facility: [facility] Address: [address] [place] [address] Performed By: #### 5 7021-8 ####[facility] LABCLIA [id number] [place] [address] [place] Differential cell count method Nom (Bld) Auto Normal [facility] Comment on above: Order Comment: Speci men Type: BLOOD SPECIMENOrdering Facility: [facility] Address: [address] Performed By: #### 5 7021-8 ####[facility] LABCLIA [id number] [address] [place] Eosinophils (Bld) [#/Vol] 0.19 10*3/uL Normal <0.46 [facility] Comment on above: Order Comment: Speci men Type: BLOOD SPECIMENOrdering Facility: [facility] Address: [address] [address] Performed By: #### 5 7021-8 ####[facility] LABCLIA [id number] [place] [address] [place] Eosinophils/100 WBC (Bld) 2.3 % Normal [facility] Comment on above: Order Comment: Speci men Type: BLOOD SPECIMENOrdering Facility: [facility] Address: [address] Performed By: #### 5 7021-8 ####[facility] LABCLIA [id number] [place] [address] [place] Erythrocyte distribution width (RBC) [Ratio] 15.4 % High 11.5-15.0 [facility] Comment on above: Order Comment: Speci men Type: BLOOD SPECIMENOrdering Facility: [facility] Address: [address] Performed By: #### 5 7021-8 ####[facility] LABCLIA [id number] [place] [address] [place] Hematocrit (Bld) [Volume fraction] 46.9 % High 36.0-46.0 [facility] Comment on above: Order Comment: Speci men Type: BLOOD SPECIMENOrdering Facility: [facility] Address: [address] Performed By: #### 5 7021-8 ####[facility] LABCLIA [id number] [place] [address] [place] Hemoglobin (Bld) [Mass/Vol] 14.6 g/dL Normal 11.5-15.5 [facility] Comment on above: Order Comment: Speci men Type: BLOOD SPECIMENOrdering Facility: [facility] Address: [address] [place] [address] Performed By: #### 5 7021-8 ####[facility] LABCLIA [id number] [place] [address] [place] Immature granulocytes (Bld) [#/Vol] 10*3/uL Normal <0.10 [facility] Comment on above: Order Comment: Speci men Type: BLOOD SPECIMENOrdering Facility: [facility] Address: [address] [place] [address] Performed By: #### 5 7021-8 ####[facility] LABCLIA [id number] [place] [address] [place] Immature granulocytes/100 WBC (Bld) 0.2 % Normal [facility] Comment on above: Order Comment: Speci men Type: BLOOD SPECIMENOrdering Facility: [facility] Address: [address] [place], [place] [address] Performed By: #### 5 7021-8 ####[facility] LABCLIA [id number] [place] [address] [place] Lymphocytes (Bld) [#/Vol] 2.23 10*3/uL Normal 1.00-4.00 [facility] Comment on above: Order Comment: Speci men Type: BLOOD SPECIMENOrdering Facility: [facility] Address: [address] [place], [place] [address] Performed By: #### 5 7021-8 ####[facility] LABCLIA [id number] [place] [address] [place] Lymphocytes/100 WBC (Bld) 27.3 % Normal [facility] Comment on above: Order Comment: Speci men Type: BLOOD SPECIMENOrdering Facility: [facility] Address: [address] [address] Performed By: #### 5 7021-8 ####[facility] LABIA [id number] [address] [place] MCH (RBC) [Entitic mass] 30.7 pg Normal 26.0-34.0 [facility] Comment on above: Order Comment: Speci men Type: BLOOD SPECIMENOrdering Facility: [facility] Address: [address] [address] Performed By: #### 5 7021-8 ####[facility] LABIA [id number] [address] [place] MCHC (RBC) [Mass/Vol] 31.1 g/dL Normal 30.5-36.0 [facility] Comment on above: Order Comment: Speci men Type: BLOOD SPECIMENOrdering Facility: [facility] Address: [address] Performed By: #### 5 7021-8 ####[facility] LABIA [id number] [address] [place] MCV (RBC) [Entitic vol] 98.5 fL Normal 80.0-100.0 [facility] Comment on above: Order Comment: Speci men Type: BLOOD SPECIMENOrdering Facility: [facility] Address: [address] Performed By: #### 5 7021-8 ####[facility] LAB[facility] [id number] [place] [address] [place] Monocytes (Bld) [#/Vol] 0.71 10*3/uL Normal <0.87 [facility] Comment on above: Order Comment: Speci men Type: BLOOD SPECIMENOrdering Facility: [facility] Address: [address] [place], [place] [address] Performed By: #### 5 7021-8 ####[facility] LABCLIA [id number] [place] [address] [place] Monocytes/100 WBC (Bld) 8.7 % Normal [facility] Comment on above: Order Comment: Speci men Type: BLOOD SPECIMENOrdering Facility: [facility] Address: [address] Performed By: #### 5 7021-8 ####[facility] LABCLIA [id number] [place] [address] [place] Neutrophils (Bld) [#/Vol] 4.94 10*3/uL Normal 1.45-7.50 [facility] Comment on above: Order Comment: Speci men Type: BLOOD SPECIMENOrdering Facility: [facility] Address: [address] Performed By: #### 5 7021-8 ####[facility] LABCLIA [id number] [place] [address] [place] Neutrophils/100 WBC (Bld) 60.5 % Normal [facility] Comment on above: Order Comment: Speci men Type: BLOOD SPECIMENOrdering Facility: [facility] Address: [address] [place], [place] [address] Performed By: #### 5 7021-8 ####[facility] LABCLIA [id number] [place] [address] [place] Nucleated RBC (Bld) [#/Vol] 10*3/uL Normal <0.01 [facility] Comment on above: Order Comment: Speci men Type: BLOOD SPECIMENOrdering Facility: [facility] Address: [address] [place] [address] Performed By: #### 5 7021-8 ####[facility] LABCLIA [id number] [place] [address] [place] Nucleated RBC/100 WBC (Bld) [Ratio] 0.0 /100 WBC Normal [facility] Comment on above: Order Comment: Speci men Type: BLOOD SPECIMENOrdering Facility: [facility] Address: [address] [place], [place] [address] Performed By: #### 5 7021-8 ####[facility] LABCLIA [id number] [place] [address] [place] Platelet mean volume (Bld) [Entitic vol] 10.5 fL Normal 9.0-12.7 [facility] Comment on above: Order Comment: Speci men Type: BLOOD SPECIMENOrdering Facility: [facility] Address: [address] [place], [place] [address] Performed By: #### 5 7021-8 ####[facility] LABCLIA [id number] [place] [address] [place] Platelets (Bld) [#/Vol] 408 10*3/uL High 150-400 [facility] Comment on above: Order Comment: Speci men Type: BLOOD SPECIMENOrdering Facility: [facility] Address: [address] [place], [place] [address] Performed By: #### 5 7021-8 ####[facility] LABCLIA [id number] [place] [address] [place] RBC (Bld) [#/Vol] 4.76 10*6/uL Normal 3.90-5.20 [facility] Comment on above: Order Comment: Speci men Type: BLOOD SPECIMENOrdering Facility: [facility] Address: [address] [place], [place] [address] Performed By: #### 5 7021-8 ####[facility] LABCLIA [id number] [place] [address] [place] WBC (Bld) [#/Vol] 8.17 10*3/uL Normal 3.70-11.00 [facility] Comment on above: Order Comment: Speci men Type: BLOOD SPECIMENOrdering Facility: [facility] Address: [address] [place] [address] Performed By: #### 5 7021-8 ####[facility] LABCLIA [id number] [address] [id number] [id number] [place] [facility] CNOVon 05-08-2023 CNOV Office Visit (INTMWS ) STEVEN KOENIG ([id number]) 1955 F Date Time Provider Department 05/08/23 12:20 PM OLY SMITH INTMWS During your visit today, we recorded the following information about you: Pulse Respiration Blood pressure Weight 90/minute 20/minute 134/88 56.2 kg 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 Angie Jones, [facility] Chronic bronchitis ([facility]) 07/26/2016 Closed skull fracture ([facility]) 1994 [facility], [facility] Coronary artery disease DDD (degenerative disc disease), cervical Endometriosis 2007 Essential hypertension 12/14/2015 GERD (gastroesophageal reflux disease) 03/13/2019 History of colon polyps History of gastric ulcer 12/14/2015 HLD (hyperlipidemia) Injury of left facial nerve 1994 PAD (peripheral artery disease) ([facility]) 09/28/2019 Recurrent major depression in partial remission ([facility]) 12/14/2015 S/P drug eluting coronary stent placement [...] TOTAL FACIAL NERVE DECOMPRESSION AND/REPAIR Left 1989 [facility] ALLERGIES Patient has no known allergies. [...] 2 tablets by mouth daily at bedtime. uzklleivhhx-eyrsxklxp-j ilanter (TRELEGY ELLIPTA) 200-62.5-25 mcg inhalation powder [...] daily. Ap (more content not included)... Normal [facility] Comprehensive metabolic 2000 panelon 05-08-2023 Albumin [Mass/Vol] 4.2 g/dL Normal 3.9-4.9 [facility] Comment on above: Order Comment: Speci men Type: BLOOD SPECIMENOrdering Facility: [facility] Address: [address] [place] [id number] Performed By: #### 2 4323-8, LIPNF ####[facility] LABCLIA [id number] [place] [address] [place] ALP [Catalytic activity/Vol] 86 U/L Normal 34-123 [facility] Comment on above: Order Comment: Speci men Type: BLOOD SPECIMENOrdering Facility: [facility] Address: [address] Performed By: #### 2 4323-8, LIPNF ####[facility] LABCLIA [id number] [place] [address] [place] ALT [Catalytic activity/Vol] 12 U/L Normal 7-38 [facility] Comment on above: Order Comment: Speci men Type: BLOOD SPECIMENOrdering Facility: [facility] Address: [address] Performed By: #### 2 4323-8, LIPNF ####[facility] LABCLIA [id number] [place] [address] [place] Anion gap [Moles/Vol] 13 mmol/L Normal 9-18 [facility] Comment on above: Order Comment: Speci men Type: BLOOD SPECIMENOrdering Facility: [facility] Address: [address] Performed By: #### 2 4323-8, LIPNF ####[facility] LABCLIA [id number] [place] [address] [place] AST [Catalytic activity/Vol] 15 U/L Normal 13-35 [facility] Comment on above: Order Comment: Speci men Type: BLOOD SPECIMENOrdering Facility: [facility] Address: [address] [place] [address] Performed By: #### 2 4323-8, LIPNF ####[facility] LABCLIA [id number] [place] [address] [place] Bilirubin [Mass/Vol] mg/dL Low 0.2-1.3 [facility] Comment on above: Order Comment: Speci men Type: BLOOD SPECIMENOrdering Facility: [facility] Address: [address] Performed By: #### 2 4323-8, LIPNF ####[facility] LABCLIA [id number] [place] [address] [place] Calcium [Mass/Vol] 9.3 mg/dL Normal 8.5-10.2 [facility] Comment on above: Order Comment: Speci men Type: BLOOD SPECIMENOrdering Facility: [facility] Address: [address] [place] [address] Performed By: #### 2 4323-8, LIPNF ####[facility] LABCLIA [id number] [place] [address] [place] Chloride [Moles/Vol] 102 mmol/L Normal 97-105 [facility] Comment on above: Order Comment: Speci men Type: BLOOD SPECIMENOrdering Facility: [facility] Address: [address] [place] [address] Performed By: #### 2 4323-8, LIPNF ####[facility] LABCLIA [id number] [place] [address] [place] CO2 [Moles/Vol] 22 mmol/L Normal 22-30 [facility] Comment on above: Order Comment: Speci men Type: BLOOD SPECIMENOrdering Facility: [facility] Address: [address] [place], [place] [address] Performed By: #### 2 4323-8, LIPNF ####[facility] LABCLIA [id number] [place] [address] [place] Creatinine [Mass/Vol] 0.97 mg/dL High 0.58-0.96 [facility] Comment on above: Order Comment: Speci men Type: BLOOD SPECIMENOrdering Facility: [facility] Address: [address] [place], [place] [address] Performed By: #### 2 4323-8, LIPNF ####[facility] LABCLIA [id number] [place] [address] [place] ESTIMATED GLOMERULAR FILTRATION RATE 64 mL/min/1.73m??? Normal >=60 [facility] Comment on above: Order Comment: [place] Type: BLOOD SPECIMENOrdering Facility: [facility] Address: [address] [place] [address] Result Comment: Johnna mated Glomerular Filtration Rate [...] GFR. Performed By: #### 2 4323-8, LIPSEGUNDO ####[facility] LABCLIA [id number] [place] [address] [place] Glucose [Mass/Vol] 76 mg/dL Normal 74-99 [facility] Comment on above: Order Comment: [place] Type: BLOOD SPECIMENOrdering Facility: [facility] Address: [address] [place] [address] Result Comment: The [place] Diabetes Association (ADA) provides guidance for cutoff [...] Standards of Medical Care in Diabetes 2016, [place] Diabetes Association. Diabetes Care. 2016.39(Suppl 1). Performed By: #### 2 4323-8, JOHN ####[facility] LABCLIA [id number] [place] [address] [place] Potassium [Moles/Vol] 5.3 mmol/L High 3.7-5.1 [facility] Comment on above: Order Comment: [place] Type: BLOOD SPECIMENOrdering Facility: [facility] Address: [address] Performed By: #### 2 4323-8, LIPNF ####[facility] LABCLIA [id number] [place] [address] [place] Protein [Mass/Vol] 6.9 g/dL Normal 6.3-8.0 [facility] Comment on above: Order Comment: Speci men Type: BLOOD SPECIMENOrdering Facility: [facility] Address: [address] Performed By: #### 2 4323-8, LIPNF ####[facility] LABCLIA [id number] [place] [address] [place] Sodium [Moles/Vol] 137 mmol/L Normal 136-144 [facility] Comment on above: Order Comment: Speci men Type: BLOOD SPECIMENOrdering Facility: [facility] Address: [address] [place], [place] [address] Performed By: #### 2 4323-8, LIPNF ####[facility] LABCLIA [id number] [place] [address] [place] Urea nitrogen [Mass/Vol] 13 mg/dL Normal 7-21 [facility] Comment on above: Order Comment: Speci men Type: BLOOD SPECIMENOrdering Facility: [facility] Address: [address] Performed By: #### 2 4323-8, LIPNF ####[facility] LABCLIA [id number] [place] [address] [place] LIPID PANEL, NONFASTINGon Cholesterol [Mass/Vol] 232 mg/dL High <200 [facility] Comment on above: Order Comment: Speci men Type: BLOOD SPECIMENOrdering Facility: [facility] Address: [address] [place] [address] Result Comment: <200 mg/dL, Desirable 200-239 mg/dL, Borderline high >239 mg/dL, High Performed By: #### 2 4323-8, LIPNF ####[facility] LABCLIA [id number] [address] HDL CHOLESTEROL, NF 67 mg/dL Normal >39 [facility] Comment on above: Order Comment: Speci men Type: BLOOD SPECIMENOrdering Facility: [facility] Address: [address] [place] [address] Result Comment: 40-5 9 mg/dL, Acceptable >59 mg/dL, High: Negative risk factor for coronary heart disease <40 mg/dL, Low: Positive risk factor for coronary heart disease Performed By: #### 2 4323-8, LIPNF ####[facility] LABCLIA [id number] [address] LDL CHOLESTEROL, NF 143 mg/dL High <100 [facility] Comment on above: Order Comment: [facility] Type: BLOOD SPECIMENOrdering Facility: [facility] Address: [address] [place] [address] Result Comment: <100 mg/dL, Optimal 100-129 mg/dL, Near optimal/above optimal 130-159 mg/dL, Borderline high 160-189 mg/dL, High >189 mg/dL, Very high Secondary prevention optimal LDL Cholesterol levels are recommended to be < 70 mg/dL Performed By: #### 2 4323-8, LIPNF ####[facility] LABCLIA [id number] [address] LDL/HDL RATIO, NF 2.13 mg/dL Normal <2.54 [facility] Comment on above: Order Comment: [place] Type: BLOOD SPECIMENOrdering Facility: [facility] Address: [address] [place] [address] Result Comment: Refe rence: 1. National Cholesterol Education Program ATP III Guideline At-A-Glance Quick Desk Reference: National Heart, Lung, and Blood [place]. National Institutes of Health. 2001: NIH Publication No. 01-3305. 2. An International Atherosclerosis Society position paper: global recommendations for the management of dyslipidemia: executive summary, Atherosclerosis. 2014: 232(2):410-413. Performed By: #### 2 4323-8, LIPNF ####[facility] LABCLIA [id number] [address] OF [facility] NON HDL CHOL, NF 165 mg/dL High <130 [facility] Comment on above: Order Comment: Speci men Type: BLOOD SPECIMENOrdering Facility: [facility] Address: [address] [place] [address] Result Comment: <130 mg/dL, Optimal 130-159 mg/dL, Near optimal/above optimal 160-189 mg/dL, Borderline high 190-219 mg/dL, High >219 mg/dL, Very high Secondary prevention optimal non HDL Cholesterol levels are recommended to be <100 mg/dL Performed By: #### 2 4323-8, LIPNF ####[facility] LABCLIA [id number] [address] [facility] T CHOL/HDL RATIO NF 3.46 mg/dL Normal <5.10 [facility] Comment on above: Order Comment: Speci men Type: BLOOD SPECIMENOrdering Facility: [facility] Address: [address] [place] [address] Performed By: #### 2 4323-8, LIPNF ####[facility] LABCLIA [id number] [address] OF [place] TRIGLYCERIDES, NF 108 mg/dL Normal <150 [facility] Comment on above: Order Comment: Speci men Type: BLOOD SPECIMENOrdering Facility: [facility] Address: [address] [place] [address] Result Comment: <150 mg/dL, Normal 150-199 mg/dL, Borderline high 200-499 mg/dL, High >499 mg/dL, Very high Performed By: #### 2 4323-8, LIPNF ####[facility] LABCLIA [id number] [place] [id number] [place] [facility] VLDL CHOLESTEROL, NF 22 mg/dL Normal <30 [facility] Comment on above: Order Comment: Speci men Type: BLOOD SPECIMENOrdering Facility: [facility] Address: [address] [place] [address] Performed By: #### 2 4323-8, LIPNF ####[facility] LABCLIA [id number] [address] [facility] XR LUMBAR 3V AP/LAT/L5-S1on 05-08-2023 XR LUMBAR [...] spine are presented. FINDINGS: There are five fli-knr-elyidvs lumbar vertebrae. No fracture or subluxations are noted. Right-sided curvature/dextroscolios is is noted. There is L4-5 disc space narrowing. There is mild to moderate osteophyte formation. Others: There are vascular calcifications. A right-sided iliac vascular stent is noted. IMPRESSION: Lumbar spine degenerative changes with L4-5 disc space narrowing. 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: PSCB Transcribe Date/Time: May 10 2023 11:59A Dictated by : KARMEN MOSLEY MD This examination was interpreted and the report reviewed and electronically signed by: KARMEN MOSLEY MD on May 10 2023 12:02PM EST [id number] Normal [facility] XR Lumbar spine 3 Viewson Radiology Study observation (narrative) [facility] CNOVon 04-02-2023 CNOV Office Visit (VASSWS ) BRADENSTEVEN Nicolas ([id number]) 1955 F Date Time Provider Department 04/02/23 [...] [175] Primary Visit Diagnosis:PAD (peripheral artery disease) ([facility]) [I73.9] Order(s):PVR LEG [facility] [[id number]] Order #: [id number] FUTURE Prescriptions as of 04/02/2023 - isosorbide mononitrate ER (IMDUR) 30 mg 24 hr tablet TAKE 1 TABLET BY MOUTH EVERY DAY - predniSONE (DELTASONE) 10 mg tablet TAKE TWO DAILY FOR 5 DAYS THEN ONE DAILY FOR 10 DAYS - traZODone (DESYREL) 100 mg tablet Take 2 tablets by mouth daily at bedtime. - rmspjivikmi-negadholk-i ilanter (TRELEGY ELLIPTA) 200-62.5-25 mcg inhalation powder [...] exertion [R06.09] 08/26/2021 Coronary artery disease involving [place]et tolbert*09/27/2021 Lung nodule [R91.1] 08/31/2022 History of hemoptysis [Z87.898] 11/20/2022 Encounter Status:Closed by DORON SELF on 04/02/23 Normal [facility] PVR ANK/LYONS/TOE [facility] on 04-02-2023 PVR ANK/LYONS/TOE [facility] Non-Invasive Vascular Laboratory [facility] Lower Extremity Arterial Physiology Study Bilateral/Complete Date [...] disease at rest. Technologist: Becky Nazario RVT, RDSD Ordering physician: DORON SELF Interpreting physician: MALINDA Vitale DO Final [employer] Medical Image : [id number] SUID See Link below for Image Normal [facility] Basic Metabolic Panel Reflex Mgon 01-07-2023 Anion gap [Moles/Vol] 5 mmol/L Low 7-16 [facility] Calcium [Mass/Vol] 8.6 mg/dL Normal 8.6-10.2 [facility] Chloride [Moles/Vol] 95 mmol/L Low 98-107 [facility] CO2 [Moles/Vol] 32 mmol/L High 22-29 [facility] Creatinine [Mass/Vol] 0.8 mg/dL Normal 0.5-1.0 [facility] GFR Calculated >60 Normal >=60 [facility] Comment on above: Result Comment: Jimbo [...] secretion. Glucose [Mass/Vol] 143 mg/dL High 74-99 [facility] Magnesium [Moles/Vol] 6.2 mmol/L High 3.5-5.0 [facility] Comment on above: Result Comment: Spec imen is moderately Hemolyzed. Result may be artificially increased. Sodium [Moles/Vol] 132 mmol/L Normal 132-146 [facility] Urea nitrogen [Mass/Vol] 26 mg/dL High 6-23 [facility] Basic Metabolic Panel w/ Ref wu to MGon 01-07-2023 Anion gap [Moles/Vol] 5 mmol/L Low 7 - 16 mmol/L [facility] Calcium [Mass/Vol] 8.6 mg/dL 8.6 - 10. 2 mg/dL [facility] Chloride [Moles/Vol] 95 mmol/L Low 98 - 10 7 mmol/L [facility] CO2 [Moles/Vol] 32 mmol/L High 22 - 29 mmol/L [facility] Creatinine [Mass/Vol] 0.8 mg/dL 0.5 - 1.0 mg/dL [facility] GFR/1.73 sq M.predicted MDRD (S/P/Bld) [Vol rate/Area] mL/min/1.73 60 - PINF mL/min/1.73 [facility] Comment on above: Pediatric calculator link https://www.kidney.org/professionals/kdoqi/gfr_calculatorped [...] 143 mg/dL High 74 - 99 mg/dL [facility] Interpretation and review of laboratory results Abnormal [facility] Potassium [Moles/Vol] 6.2 mmol/L High 3.5 - 5.0 mmol/L [facility] Comment on above: Specimen is moderate ly Hemolyzed. Result may be artificially increased. Sodium [Moles/Vol] 132 mmol/L 132 - 146 mmol/L [facility] Urea nitrogen (BldV) [Mass/Vol] 26 mg/dL High 6 - 23 mg/dL [facility] CBC With Platelet and Differ entialon 01-07-2023 Abs Imm Granulocytes 0.06 E9/L Normal [facility] Absolute Basophils 0.01 E9/L Normal 0.00-0.20 [facility] Absolute Eosinophils 0.01 E9/L Low 0.05-0.50 [facility] Absolute Lymphocytes 0.61 E9/L Low 1.50-4.00 [facility] Absolute Monocytes 0.29 E9/L Normal 0.10-0.95 [facility] Absolute Neutrophils 8.76 E9/L High 1.80-7.30 [facility] Basophils/100 WBC (Bld) 0.1 % Normal 0.0-2.0 [facility] Eosinophils/100 WBC (Bld) 0.1 % Normal 0.0-6.0 [facility] Hematocrit (Bld) [Volume fraction] 42.8 % Normal 34.0-48.0 [facility] Hemoglobin (Bld) [Mass/Vol] 13.5 g/dL Normal 11.5-15.5 [facility] Imm Granulocytes 0.6 % Normal 0.0-5.0 [facility] Lymphocytes/100 WBC (Bld) 6.3 % Low 20.0-42.0 [facility] MCH (RBC) [Entitic mass] 31.3 pg Normal 26.0-35.0 [facility] MCHC 31.5 % Low 32.0-34.5 [facility] MCV (RBC) [Entitic vol] 99.1 fL Normal 80.0-99.9 [facility] Monocytes/100 WBC (Bld) 3.0 % Normal 2.0-12.0 [facility] Neutrophils/100 WBC (Bld) 89.9 % High 43.0-80.0 [facility] Platelet Count 421 E9/L Normal 130-450 [facility] Platelet mean volume (Bld) [Entitic vol] 9.8 fL Normal 7.0-12.0 [facility] RBC 4.32 E12/L Normal 3.50-5.50 [facility] RDW 15.1 fL High 11.5-15.0 [facility] WBC 9.7 E9/L Normal 4.5-11.5 [facility] CBC with Auto Differentialon 01-07-2023 Basophils (Bld) [#/Vol] 0.01 10*3/uL [facility] Basophils/100 WBC (Bld) 0.1 % 0.0 - 2.0 % [facility] Eosinophils Absolute 0.01 Low [facility] Eosinophils/100 WBC (Bld) 0.1 % 0.0 - 6.0 % [facility] Hematocrit (Bld) [Volume fraction] 42.8 % 34.0 - 48.0 % [facility] Hemoglobin (Bld) [Mass/Vol] 13.5 g/dL 11.5 - 15.5 g/dL [facility] Immature Granulocytes # 0.06 E9/L B ON [facility] Immature granulocytes/100 WBC (Bld) 0.6 % 0.0 - 5.0 % [facility] Interpretation and review of laboratory results Abnormal [facility] Lymphocytes Absolute 0.61 Low [facility] Lymphocytes/100 WBC (Bld) 6.3 % Low 20.0 - 42.0 % [facility] MCH (RBC) [Entitic mass] 31.3 pg 26.0 - 35.0 pg [facility] MCHC (RBC) [Mass/Vol] 31.5 % Low 32.0 - 34.5 % [facility] MCV (RBC) [Entitic vol] 99.1 fL 80.0 - 99.9 fL [facility] Monocytes Absolute 0.29 [facility] Monocytes/100 WBC (Bld) 3.0 % 2.0 - 12.0 % [facility] Neutrophils Absolute 8.76 High [facility] Neutrophils/100 WBC (Bld) 89.9 % High 43.0 - 80.0 % [facility] Platelet distribution width (Bld) [Ratio] 15.1 fL High 11.5 - 15.0 fL [facility] Platelet mean volume (Bld) [Entitic vol] 9.8 fL 7.0 - 12.0 fL [facility] Platelets (Bld) [#/Vol] 421 10*3/uL [facility] RBC (Bld) [#/Vol] 4.32 10*6/uL [facility] WBC (Bld) [#/Vol] 9.7 10*3/uL [facility] Glucose Glucometer (BldC) [M ass/Vol]Ordered By: Dr. Teague on 01-07-2023 Glucose [Mass/Vol] 88 mg/dL 74-106 [facility] Comment on above: MANAGEMENT OF PATIEN T CARE PER NURSING PROTOCOL High Sensitivity Troponin To n 01-07-2023 High Sensitivity Troponin T 14 ng/L High 0-9 [facility] Comment on above: Result Comment: High Sensitivity Troponin values cannot be compared with other Troponin methodologies. Patients with high levels of Biotin oral intake (i.e. >5 mg/day) may have falsely decreased Troponin levels. Samples collected within 8 hours of biotin intake may require additional information for diagnosis. Troponinon 01-07-2023 Interpretation and review of laboratory results Abnormal [facility] Troponin, High Sensitivity 14 ng/L High 0 - 9 ng/L [facility] Comment on above: High Sensitivity Tro ponin values cannot be compared with other Troponin methodologies. Patients with high levels of Biotin oral intake (i.e. >5 mg/day) may have falsely decreased Troponin levels. Samples collected within 8 hours of biotin intake may require additional information for diagnosis. [facility] Bacteria identified Respirat ory culture Nom (Unsp spec)Ordered By: Dr. Luque on 01-06-2023 Respiratory Culture Streptococcus pneumoniae [facility] Absolute lymphocyte countOrd ered By: Dr. Luque on 01-03-2023 Lymphocytes Auto (Unsp spec) [#/Vol] 0.36 10*3/uL 0.83-4.51 [facility] Basophil percentageOrdered B y: Dr. Luque on 01-03-2023 Basophils/100 WBC (Bld) 0.6 % 0-1 [facility] Bilirubin [Mass/Vol] 0.20 mg/dL 0.20-1.00 [facility] Comment on above: For patients on eltr ombopag therapy, use of [employer]ension [place] TBIL is not recommended. Chloride [Moles/Vol] 112 mmol/L 98-107 [facility] Cholesterol [Mass/Vol] 225 mg/dL <200 [facility] Comment on above: <200 mg/dL Desirable 200-240 mg/dL Borderline >240 mg/dL High Risk Eosinophils/100 WBC (Bld) 0.0 % 0-5 [facility] Glucose [Mass/Vol] 236 mg/dL 74-106 [facility] Comment on above: Glucose result great er than or equal to 200 mg/dLsuggests DIABETES MELLITUS per A.D.A. criteria. Neutrophils (Bld) [#/Vol] 6.2 10*3/uL 2.0-7.7 [facility] Neutrophils/100 WBC (Bld) 92.4 % 47-70 [facility] Potassium [Moles/Vol] 4.3 mmol/L 3.5-5.1 [facility] Protein [Mass/Vol] 6.5 g/dL 6.4-8.2 [facility] Sodium [Moles/Vol] 141 mmol/L 136-145 [facility] Triglyceride [Mass/Vol] 63 mg/dL <199 [facility] Comment on above: The drugs N-Acetylcy steine and Metamizole may falsely depress this assay.Serum Triglycerides Reference Interval Normal <150 mg/dL Borderline high 150 - 199 mg/dL High 200 - 499 mg/dL Very High > or = 500 mg/dL WBC (Bld) [#/Vol] 6.7 10*3/uL 4.4-11.0 [facility] Blood erythrocytes count (nu mber/volume)Ordered By: Dr. Luque on 01-03-2023 RBC (Bld) [#/Vol] 4.25 10*6/uL 4.2-5.4 [facility] Blood hemoglobin measurement (mass/volume)Ordered By: Dr. Luque on 01-03-2023 Hemoglobin (Bld) [Mass/Vol] 13.4 g/dL 12.0-15.0 [facility] Blood lymphocytes/100 leukoc ytesOrdered By: Dr. Luque on 01-03-2023 Lymphocytes/100 WBC (Bld) 5.4 % 19-41 [facility] Blood manual differential co mment interpretation (narrative result)Ordered By: Dr. Luque on 01-03-2023 Manual differential comment Marquez (Bld) [Interp] SCANNED [facility] Blood monocytes/100 leukocyt esOrdered By: Dr. Luque on 01-03-2023 Monocytes/100 WBC (Bld) 0.9 % 0-10 [facility] Blood platelet mean volumeOr dered By: Dr. Luque on 01-03-2023 Platelet mean volume (Bld) [Entitic vol] 9.4 fL 6.2-12.0 [facility] Determination of erythrocyte mean corpuscular volume (MCV)Ordered By: Dr. Luque on 01-03-2023 MCV (RBC) [Entitic vol] 99.1 fL 81-99 [facility] Gram stain for investigation of transfusion reactionOrdered By: Dr. Luque on 01-03-2023 Microscopic observation Gram stain Nom (Unsp spec) [facility] Hematocrit Auto (Bld) [Volum e fraction]Ordered By: Dr. Luque on 01-03-2023 Hematocrit (Bld) [Volume fraction] 42.1 % 37-47 [facility] Laboratory - Chemistry and C hemistry - challengeOrdered By: Dr. Luque on 01-03-2023 ALP [Catalytic activity/Vol] 59 U/L 45-117 [facility] ALT [Catalytic activity/Vol] 19 U/L 13-56 [facility] CO2 [Moles/Vol] 25.0 mmol/L 21.0-32.0 [facility] Globulin (S) [Mass/Vol] 3.5 g/dL 2.2-4.2 [facility] Urea nitrogen/Creatinine [Mass ratio] 12.5 mg/mg 10-20 [facility] - Hematology and Cell countsOrdered By: Dr. Luque on 01-03-2023 Erythrocyte distribution width (RBC) [Entitic vol] 57.1 fL 35.1-43.9 [facility] Erythrocyte distribution width (RBC) [Ratio] 15.7 % 11.6-14.6 [facility] Immature granulocytes/100 WBC (Bld) 0.700 % 0.0-0.9 [facility] Comment on above: IG% - Immature Granu locytes (promyelocytes, myelocytes and metamyelocytes) > 1% indicates that a LEFT SHIFT is Present. MCH (RBC) [Entitic mass] 31.5 pg 27.0-32.0 [facility] Nucleated RBC/100 WBC (Bld) [Ratio] 0 % 0-5 [facility] MCHC Auto (RBC) [Mass/Vol]Or dered By: Dr. Luque on 01-03-2023 MCHC (RBC) [Mass/Vol] 31.8 g/dL 32-36 [facility] No Panel InformationOrdered By: Dr. Luque on 01-03-2023 Estimated Creatinine Clearance Calc 61.40 ml/min [facility] Estimated GFR (MDRD) Amer 92 mL/min >60 [facility] Comment on above: GFR Calc Estimated GFR (MDRD) Non-Af Amer 76 mL/min >60 [facility] Comment on above: Non- GFR Calc Troponin I High Sensitivity 17 pg/mL 3.0-54.0 [facility] Comment on above: Please Note: New Elsa t Units and Gender Specific Reference Ranges. For more information see Policy Stat Procedure [place] High Sensitivity Troponin (TNIH) and attachments. Platelets bldOrdered By: Dr. Luque on 01-03-2023 Platelets (Bld) [#/Vol] 416 10*3/uL 150-450 [facility] Serum or plasma albumin giovanni urement (mass/volume)Ordered By: Dr. Luque on 01-03-2023 Albumin [Mass/Vol] 3.0 g/dL 3.2-5.0 [facility] Serum or plasma albumin/glob ulin mass ratioOrdered By: Dr. Luque on 01-03-2023 Albumin/Globulin [Mass ratio] 0.9 {ratio} 0.9-2.4 [facility] Serum or plasma calcium giovanni urement (mass/volume)Ordered By: Dr. Luque on 01-03-2023 Calcium [Mass/Vol] 8.1 mg/dL 8.5-10.1 [facility] Serum or plasma cholesterol in HDL measurement (mass/volume)Ordered By: Dr. Luque on 01-03-2023 Cholesterol in HDL [Mass/Vol] 98 mg/dL >40 [facility] Comment on above: The drugs N-Acetylcy steine and Metamizole may falsely depress this assay. Reference Range HDL <40 mg/dL Low HDL Cholesterol HDL >or= 60 mg/dL High HDL Cholesterol Serum or plasma cholesterol in VLDL measurement (mass/volume)Ordered By: Dr. Luque on 01-03-2023 Cholesterol in VLDL [Mass/Vol] 13 mg/dL 5-40 [facility] Serum or plasma creatinine m easurement (mass/volume)Ordered By: Dr. Luque on 01-03-2023 Creatinine [Mass/Vol] 0.80 mg/dL 0.55-1.02 [facility] Comment on above: The validity of the calculated GFR & GFRAA in patients over 70 years has not been determined. Clinical correlation is essential. Serum or plasma low density lipoprotein (LDL) cholesterol measurement (mass/volume)Ordered By: Dr. Luque on 01-03-2023 Cholesterol in LDL [Mass/Vol] 114 mg/dL 0-130 [facility] Serum or plasma urea nitroge n measurement (mass/volume)Ordered By: Dr. Luque on 01-03-2023 Urea nitrogen [Mass/Vol] 10 mg/dL 7-18 [facility] Thin prep Papanicolaou smear with manual screeningOrdered By: Dr. Luque on 01-03-2023 Thin prep Papanicolaou smear with manual screening 14 U/L 15-37 [facility] Thin prep Papanicolaou smear with manual screening 4 5-15 [facility] Whole blood hemoglobin A1c/t otal hemoglobin ratio (mass fraction)Ordered By: Dr. Sauer on 01-03-2023 HbA1c (Bld) [Mass fraction] 5.5 % 3.8-5.6 [facility] Comment on above: Normal < 5.7 % Predi abetic 5.7 - 6.4 % Diabetic >or= 6.5 % Please note range changes. Absolute lymphocyte countOrd ered By: Dr. Koroma on 01-02-2023 Lymphocytes Auto (Unsp spec) [#/Vol] 2.67 10*3/uL 0.83-4.51 [facility] Basophil percentageOrdered B y: Dr. Luque on 01-02-2023 Basophil percentage 3.6 mg/dL 2.5-4.9 [facility] Basophil percentageOrdered B y: Dr. Koroma on 01-02-2023 Basophils/100 WBC (Bld) 1.3 % 0-1 [facility] Bilirubin [Mass/Vol] 0.10 mg/dL 0.20-1.00 [facility] Comment on above: For patients on eltr ombopag therapy, use of Dimension [place] TBIL is not recommended. Chloride [Moles/Vol] 109 mmol/L 98-107 [facility] Eosinophils/100 WBC (Bld) 1.4 % 0-5 [facility] Glucose [Mass/Vol] 76 mg/dL 74-106 [facility] Neutrophils (Bld) [#/Vol] 3.6 10*3/uL 2.0-7.7 [facility] Neutrophils/100 WBC (Bld) 50.1 % 47-70 [facility] Potassium [Moles/Vol] 3.6 mmol/L 3.5-5.1 [facility] Protein [Mass/Vol] 7.3 g/dL 6.4-8.2 [facility] Sodium [Moles/Vol] 143 mmol/L 136-145 [facility] WBC (Bld) [#/Vol] 7.2 10*3/uL 4.4-11.0 [facility] Basophil percentage 0 SEEN /hpf 0-5 [facility] Bilirubin Test strip Ql (U)O rdered By: Dr. Koroma on 01-02-2023 Bilirubin Ql (U) Negative Negative [facility] Blood erythrocytes count (nu mber/volume)Ordered By: Dr. Koroma on 01-02-2023 RBC (Bld) [#/Vol] 4.42 10*6/uL 4.2-5.4 [facility] Blood hemoglobin measurement (mass/volume)Ordered By: Dr. Koroma on 01-02-2023 Hemoglobin (Bld) [Mass/Vol] 14.0 g/dL 12.0-15.0 [facility] Blood lymphocytes/100 leukoc ytesOrdered By: Dr. Koroma on 01-02-2023 Lymphocytes/100 WBC (Bld) 37.2 % 19-41 [facility] Blood monocytes/100 leukocyt esOrdered By: Dr. Koroma on 01-02-2023 Monocytes/100 WBC (Bld) 9.6 % 0-10 [facility] Blood platelet mean volumeOr dered By: Dr. Koroma on 01-02-2023 Platelet mean volume (Bld) [Entitic vol] 9.8 fL 6.2-12.0 [facility] Determination of erythrocyte mean corpuscular volume (MCV)Ordered By: Dr. Koroma on 01-02-2023 MCV (RBC) [Entitic vol] 99.3 fL 81-99 [facility] Hematocrit Auto (Bld) [Volum e fraction]Ordered By: Dr. Koroma on 01-02-2023 Hematocrit (Bld) [Volume fraction] 43.9 % 37-47 [facility] Ketones Test strip Ql (U)Ord ered By: Dr. Koroma on 01-02-2023 Ketones Ql (U) Negative Negative [facility] Laboratory - Chemistry and C hemistry - challengeOrdered By: Dr. Luque on 01-02-2023 Magnesium [Mass/Vol] 2.0 mg/dL 1.6-2.6 [facility] Laboratory - Chemistry and C hemistry - challengeOrdered By: Dr. Koroma on 01-02-2023 ALP [Catalytic activity/Vol] 63 U/L 45-117 [facility] ALT [Catalytic activity/Vol] 24 U/L 13-56 [facility] CO2 [Moles/Vol] 27.0 mmol/L 21.0-32.0 [facility] Globulin (S) [Mass/Vol] 3.9 g/dL 2.2-4.2 [facility] Lipase [Catalytic activity/Vol] 235 U/L 73-393 [facility] Urea nitrogen/Creatinine [Mass ratio] 13.7 mg/mg 10-20 [facility] Laboratory - Drug toxicology Ordered By: Dr. Koroma on 01-02-2023 Amphetamines Ql (U) Negative <1000 ng/mL [facility] Benzodiazepines Ql (U) Negative < 200 ng/mL [facility] Cannabinoids Screen Ql (U) Negative < 50 ng/mL [facility] Cocaine Ql (U) Negative < 300 ng/mL [facility] Opiates Ql (U) Negative < 300 ng/mL [facility] Laboratory - Hematology and Cell countsOrdered By: Dr. Koroma on 01-02-2023 Erythrocyte distribution width (RBC) [Entitic vol] 56.6 fL 35.1-43.9 [facility] Erythrocyte distribution width (RBC) [Ratio] 15.6 % 11.6-14.6 [facility] Immature granulocytes/100 WBC (Bld) 0.400 % 0.0-0.9 [facility] Comment on above: IG% - Immature Granu locytes (promyelocytes, myelocytes and metamyelocytes) > 1% indicates that a LEFT SHIFT is Present. MCH (RBC) [Entitic mass] 31.7 pg 27.0-32.0 [facility] Nucleated RBC/100 WBC (Bld) [Ratio] 0 % 0-5 [facility] Auto (RBC) [Mass/Vol]Or dered By: Dr. Koroma on 01-02-2023 MCHC (RBC) [Mass/Vol] 31.9 g/dL 32-36 [facility] Mucus LM Ql (Urine sed)Order ed By: Dr. Koroma on 01-02-2023 Mucus Ql (Urine sed) 0 SEEN /hpf [facility] Nitrite Test strip Ql (U)Ord ered By: Dr. Koroma on 01-02-2023 Nitrite Ql (U) Negative Negative [facility] No Panel InformationOrdered By: Dr. Koroma on 01-02-2023 Estimated Creatinine Clearance Calc 61.40 ml/min [facility] Estimated GFR (MDRD) Amer 91 mL/min >60 [facility] Comment on above: GFR Calc Estimated GFR (MDRD) Non-Af Amer 76 mL/min >60 [facility] Comment on above: Non- GFR Calc Ethyl Alcohol Level 112.0 mg/dL [facility] Comment on above: The serum:whole bloo d ethanol ratio is approximately 1.14and varies slightly with hematocrit. Medical Alcohol reference interval and critical value innon-tolerant individuals; 50 - 100 Impairment 100 Intoxication 100 - 250 Severe Poisoning 250 - 400 Deep/possible fatal coma Troponin I High Sensitivity 17 pg/mL 3.0-54.0 [facility] Comment on above: Please Note: New Elsa t Units and Gender Specific Reference Ranges. For more information see Policy Stat Procedure [place] High Sensitivity Troponin (TNIH) and attachments. MDMA (Ecstasy) Screen Negative < 500 ng/mL [facility] Urine Barbiturates Screen Negative < 200 ng/mL [facility] Urine Drug Screen Comment [facility] Comment on above: CONFIRMATORY TESTING FOR ALL [...] Methadone Screen Negative < 300 ng/mL [facility] Platelets bldOrdered By: Dr. Koroma on 01-02-2023 Platelets (Bld) [#/Vol] 478 10*3/uL 150-450 [facility] Protein Test strip Ql (U)Ord ered By: Dr. Koroma on 01-02-2023 Protein Ql (U) Negative Negative [facility] Serum or plasma albumin giovanni urement (mass/volume)Ordered By: Dr. Koroma on 01-02-2023 Albumin [Mass/Vol] 3.4 g/dL 3.2-5.0 [facility] Serum or plasma albumin/glob ulin mass ratioOrdered By: Dr. Koroma on 01-02-2023 Albumin/Globulin [Mass ratio] 0.9 {ratio} 0.9-2.4 [facility] Serum or plasma calcium giovanni urement (mass/volume)Ordered By: Dr. Koroma on 01-02-2023 Calcium [Mass/Vol] 8.5 mg/dL 8.5-10.1 [facility] Serum or plasma creatinine m easurement (mass/volume)Ordered By: Dr. Koroma on 01-02-2023 Creatinine [Mass/Vol] 0.80 mg/dL 0.55-1.02 [facility] Comment on above: The validity of the calculated GFR & GFRAA in patients over 70 years has not been determined. Clinical correlation is essential. Serum or plasma urea nitroge n measurement (mass/volume)Ordered By: Dr. Koroma on 01-02-2023 Urea nitrogen [Mass/Vol] 11 mg/dL 7-18 [facility] Serum procalcitonin measurem entOrdered By: Dr. Luque on 01-02-2023 Procalcitonin [Mass/Vol] ng/mL 0.00-0.09 [facility] Comment on above: A procalcitonin (PCT ) [...] Ql (Urine sed) 0-5 SEEN /hpf 5-10 [facility] Thin prep Papanicolaou smear with manual screeningOrdered By: Dr. Koroma on 01-02-2023 Thin prep Papanicolaou smear with manual screening 17 U/L 15-37 [facility] Thin prep Papanicolaou smear with manual screening 7 5-15 [facility] Urine blood detectionOrdered By: Dr. Koroma on 01-02-2023 RBC Ql (U) Negative Negative [facility] RBC Ql (U) 0 SEEN /hpf 0-5 [facility] Urine clarityOrdered By: Dr. Koroma on 01-02-2023 Clarity (U) Clear Clear [facility] Urine color determinationOrd ered By: Dr. Koroma on 01-02-2023 Color (U) Yellow Yellow [facility] Urine glucose detectionOrder ed By: Dr. Koroma on 01-02-2023 Glucose Ql (U) Normal mg/dl Normal [facility] Urine leukocyte esterase det ection by dipstickOrdered By: Dr. Koroma on 01-02-2023 Leukocyte esterase Test strip Ql (U) Negative Negative [facility] Urine pHOrdered By: Dr. Haider mark on 01-02-2023 pH (U) 6.0 [pH] 5.0 - 8.0 [facility] Urine phencyclidine (PCP) de tectionOrdered By: Dr. Koroma on 01-02-2023 Phencyclidine Ql (U) Negative < 25 ng/mL [facility] Urine sediment bacteria coun t by microscopy (number/high power field)Ordered By: Dr. Koroma on 01-02-2023 Bacteria LM.HPF (Urine sed) [#/Area] 0 /[HPF] None Seen [facility] Urine specific gravity measu rementOrdered By: Dr. Koroma on 01-02-2023 Specific gravity (U) [Rel density] 1.005 1.002-1.030 [facility] Urobilinogen Auto test strip Ql (U)Ordered By: Dr. Koroma on 01-02-2023 Urobilinogen Ql (U) Normal mg/dl Normal [facility] A1AT SerPl-mCncon 01-01-2023 Alpha 1 antitrypsin [Mass/Vol] 192 mg/dL Normal 90-200 [facility] Comment on above: Order Comment: Speci men Type: BLOOD SPECIMENOrdering Facility: [facility] Address: [address] [place] [address] Performed By: #### 1 825-9 ####[facility] LABIA [id number] [place] [address] [place] CBC W Auto Differential pane l (Bld)on 01-01-2023 Basophils (Bld) [#/Vol] 0.07 10*3/uL Normal <0.11 [facility] Comment on above: Order Comment: Speci men Type: BLOOD SPECIMENOrdering Facility: [facility] Address: [address] [place] [address] Performed By: #### 5 7021-8 ####[facility] LABIA [id number] [place] [address] [place] Basophils/100 WBC (Bld) 1.0 % Normal [facility] Comment on above: Order Comment: Speci men Type: BLOOD SPECIMENOrdering Facility: [facility] Address: [address] [place] [address] Performed By: #### 5 7021-8 ####[facility] LABIA [id number] [place] [address] [place] Differential cell count method Nom (Bld) Auto Normal [facility] Comment on above: Order Comment: Speci men Type: BLOOD SPECIMENOrdering Facility: [facility] Address: [address] [place], [place] [address] Performed By: #### 5 7021-8 ####[facility] LABCLIA [id number] [place] [address] [place] Eosinophils (Bld) [#/Vol] 0.07 10*3/uL Normal <0.46 [facility] Comment on above: Order Comment: Speci men Type: BLOOD SPECIMENOrdering Facility: [facility] Address: [address] [place], [place] [address] Performed By: #### 5 7021-8 ####[facility] LABCLIA [id number] [address] [place] Eosinophils/100 WBC (Bld) 1.0 % Normal [facility] Comment on above: Order Comment: Speci men Type: BLOOD SPECIMENOrdering Facility: [facility] Address: [address] [place], [place] [address] Performed By: #### 5 7021-8 ####[facility] LABCLIA [id number] [address] [place] Erythrocyte distribution width (RBC) [Ratio] 15.8 % High 11.5-15.0 [facility] Comment on above: Order Comment: Speci men Type: BLOOD SPECIMENOrdering Facility: [facility] Address: [address] [place] [address] Performed By: #### 5 7021-8 ####[facility] LABIA [id number] [place] [address] [place] Hematocrit (Bld) [Volume fraction] 44.4 % Normal 36.0-46.0 [facility] Comment on above: Order Comment: Speci men Type: BLOOD SPECIMENOrdering Facility: [facility] Address: [address] [place], [place] [address] Performed By: #### 5 7021-8 ####[facility] LABCLIA [id number] [place] [address] [place] Hemoglobin (Bld) [Mass/Vol] 14.1 g/dL Normal 11.5-15.5 [facility] Comment on above: Order Comment: Speci men Type: BLOOD SPECIMENOrdering Facility: [facility] Address: [address] Performed By: #### 5 7021-8 ####[facility] LABCLIA [id number] [place] [address] [place] Immature granulocytes (Bld) [#/Vol] 10*3/uL Normal <0.10 [facility] Comment on above: Order Comment: Speci men Type: BLOOD SPECIMENOrdering Facility: [facility] Address: [address] [place], [place] [address] Performed By: #### 5 7021-8 ####[facility] LABIA [id number] [place] [address] [place] Immature granulocytes/100 WBC (Bld) 0.3 % Normal [facility] Comment on above: Order Comment: Speci men Type: BLOOD SPECIMENOrdering Facility: [facility] Address: [address] [place], [place] [address] Performed By: #### 5 7021-8 ####[facility] LABCLIA [id number] [place] [address] [place] Lymphocytes (Bld) [#/Vol] 1.67 10*3/uL Normal 1.00-4.00 [facility] Comment on above: Order Comment: Speci men Type: BLOOD SPECIMENOrdering Facility: [facility] Address: [address] [place], [place] [address] Performed By: #### 5 7021-8 ####[facility] LABCLIA [id number] [address] [place] Lymphocytes/100 WBC (Bld) 23.3 % Normal [facility] Comment on above: Order Comment: Speci men Type: BLOOD SPECIMENOrdering Facility: [facility] Address: [address] [place] [address] Performed By: #### 5 7021-8 ####[facility] LABIA [id number] [address] [place] MCH (RBC) [Entitic mass] 32.0 pg Normal 26.0-34.0 [facility] Comment on above: Order Comment: Speci men Type: BLOOD SPECIMENOrdering Facility: [facility] Address: [address] [place] [address] Performed By: #### 5 7021-8 ####[facility] LABIA [id number] [address] [place] MCHC (RBC) [Mass/Vol] 31.8 g/dL Normal 30.5-36.0 [facility] Comment on above: Order Comment: Speci men Type: BLOOD SPECIMENOrdering Facility: [facility] Address: [address] [place], [place] [address] Performed By: #### 5 7021-8 ####[facility] LABIA [id number] [address] [place] MCV (RBC) [Entitic vol] 100.9 fL High 80.0-100.0 C [facility] Comment on above: Order Comment: Speci men Type: BLOOD SPECIMENOrdering Facility: [facility] Address: [address] [place], [place] [address] Performed By: #### 5 7021-8 ####[facility] LABIA [id number] [address] [place] Monocytes (Bld) [#/Vol] 0.91 10*3/uL High <0.87 [facility] Comment on above: Order Comment: Speci men Type: BLOOD SPECIMENOrdering Facility: [facility] Address: [address] Performed By: #### 5 7021-8 ####[facility] LABCLIA [id number] [address] [place] Monocytes/100 WBC (Bld) 12.7 % Normal [facility] Comment on above: Order Comment: Speci men Type: BLOOD SPECIMENOrdering Facility: [facility] Address: [address] Performed By: #### 5 7021-8 ####[facility] LABCLIA [id number] [place] [address] [place] Neutrophils (Bld) [#/Vol] 4.44 10*3/uL Normal 1.45-7.50 [facility] Comment on above: Order Comment: Speci men Type: BLOOD SPECIMENOrdering Facility: [facility] Address: [address] Performed By: #### 5 7021-8 ####[facility] LABCLIA [id number] [address] [place] [facility] Neutrophils/100 WBC (Bld) 61.7 % Normal [facility] Comment on above: Order Comment: Speci men Type: BLOOD SPECIMENOrdering Facility: [facility] Address: [address] Performed By: #### 5 7021-8 ####[facility] LABCLIA [id number] [place] [address] [place] Nucleated RBC (Bld) [#/Vol] 10*3/uL Normal <0.01 [facility] Comment on above: Order Comment: Speci men Type: BLOOD SPECIMENOrdering Facility: [facility] Address: [address] Performed By: #### 5 7021-8 ####[facility] LABCLIA [id number] [place] [address] [place] Nucleated RBC/100 WBC (Bld) [Ratio] 0.0 /100 WBC Normal [facility] Comment on above: Order Comment: Speci men Type: BLOOD SPECIMENOrdering Facility: [facility] Address: [address] [place] [address] Performed By: #### 5 7021-8 ####[facility] LABIA [id number] [place] [address] [place] Platelet mean volume (Bld) [Entitic vol] 10.1 fL Normal 9.0-12.7 [facility] Comment on above: Order Comment: Speci men Type: BLOOD SPECIMENOrdering Facility: [facility] Address: [address] [place] [address] Performed By: #### 5 7021-8 ####[facility] [id number] [place] [address] [place] Platelets (Bld) [#/Vol] 439 10*3/uL High 150-400 [facility] Comment on above: Order Comment: Speci men Type: BLOOD SPECIMENOrdering Facility: [facility] Address: [address] [place], [place] [address] Performed By: #### 5 7021-8 ####[facility] LABIA [id number] [place] [address] [place] RBC (Bld) [#/Vol] 4.40 10*6/uL Normal 3.90-5.20 [facility] Comment on above: Order Comment: Speci men Type: BLOOD SPECIMENOrdering Facility: [facility] Address: [address] [place], [place] [address] Performed By: #### 5 7021-8 ####[facility] LABIA [id number] [place] [address] [place] WBC (Bld) [#/Vol] 7.18 10*3/uL Normal 3.70-11.00 [facility] Comment on above: Order Comment: Speci men Type: BLOOD SPECIMENOrdering Facility: [facility] Address: [address] [place] [address] Performed By: #### 5 7021-8 ####[facility] LABCLIA [id number] [place]ANGOK [id number] [id number] [facility] CNOVon 01-01-2023 CNOV Office Visit (INTMWS ) STEVEN KOENIG ([id number]) 1955 F Date Time Provider Department 01/01/23 2:00 PM OLY SMITH INTMWS During your visit today, we recorded the following information about you: Pulse Respiration Blood pressure Weight 85/minute 22/minute 170/83 58.1 kg Oly Smith APRN.HOME ENERGY CONSULTANT 01/01/2023 3:27 PM Addendum CC: Patient presents [...] Alcohol use disorder 01/18/2016 Dr. Angie Jones, [facility] Anxiety 12/14/2015 Bipolar affective disorder, currently active ([facility]) 01/18/2016 Dr. Angie Jones, [facility] Chronic bronchitis ([facility]) 07/26/2016 Closed skull fracture ([facility]) 1994 [facility], [facility] Coronary artery disease DDD (degenerative disc disease), cervical Endometriosis 2007 Essential hypertension 12/14/2015 GERD (gastroesophageal reflux disease) 03/13/2019 History of colon polyps History of gastric ulcer 12/14/2015 HLD (hyperlipidemia) Injury of left facial nerve 1994 PAD (peripheral artery disease) ([facility]) 09/28/2019 Recurrent major depression in partial remission ([facility]) 12/14/2015 S/P drug eluting coronary stent placement [...] TOTAL FACIAL NERVE DECOMPRESSION AND/REPAIR Left 1989 [facility] ALLERGIES Patient has no known allergies. MEDICATIONS traZODone (DESYREL) 100 mg tablet Take 2 tablets by mouth daily at bedtime. uagcqbbewys-bmeuijcxq-a ilanter (TRELEGY ELLIPTA) 200-62.5-25 mcg inhalation powder [...] 1 tabl (more content not included)... Normal [facility] Frank 01-01-2023 [facility]EV[facility] KOENIG ([id number]) 1955 F Date Time Provider Department 01/01/23 [facility] During your visit today, we recorded the following information about you: GIO Cardona 01/01/2023 3:55 PM Signed Behavioral Health Social Work Progress Note Patient identified for [facility] from: PCP Reason for referral: Resources Behavioral Health Resources: Substance abuse [facility] encounter type: Telephone Encounter Attempts to Outreach: 1 attempt Referral made: Psychology - External Psychology-External referral type: Alcohol/Drug Treatment Reason for external referral: Patient seeking buttermaker support, Patient needs services closer to home [...] for detoxification and substance abuse: [facility] [address] [place] [address] [phone] [facility] [address] [place] [phone] Patient states she may end up just going to [facility] if she can't find anywhere to go to assist as she really needs to detox. Advised to call these numbers and if additional assistance is needed to inform this SW. GIO Cardona January 01, 2023 Allergies As of Date: 01/01/2023 (No Known Allergies) Date Reviewed: 01/01/2023 Reviewed by: Oly Smith APRN.HOME ENERGY CONSULTANT - Fully Assessed Reason for Visit: Behavioral Health Social Work [Other] Prescriptions as of 01/01/2023 - traZODone (DESYREL) 100 mg tablet Take 2 tablets by mouth daily at bedtime. - thgmltsgaff-tzbwgtqss-i ilanter (TRELEGY ELLIPTA) 200-62.5-25 mcg inhalation powder [...] [I73.9] 09/28/2019 (more content not included)... Normal [facility] XR CHEST 2V FRONTAL/LATon XR CHEST [...] tissues: Unremarkable. IMPRESSION: No acute radiographic abnormality. 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: PSCB Transcribe Date/Time: Jan 01 2023 3:22P Dictated by : HUBER VILA MD This examination was interpreted and the report reviewed and electronically signed by: HUBER VILA MD on Jan 01 2023 3:23PM EST [id number] Normal [facility] XR Chest PA and Lateralon IMPRESSION: No acute radiographic abnormality. 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: SRAVANI Transcribe Date/Time: Jan 01 2023 3:22P Dictated by : HUBER VILA MD This examination was interpreted and the report reviewed and electronically signed by: HUBER VILA MD on Jan 01 2023 3:23PM [facility] DIVISION OF RADIOLOGY * * *Final [...] soft tissues: Unremarkable. DIVISION OF RADIOLOGY Provider, [facility] - 01/01/2023 * * *Final [...] Unremarkable. IMPRESSION IMPRESSION: No acute radiographic abnormality. 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: SRAVANI Transcribe Date/Time: Jan 01 2023 3:22P Dictated by : HUBER VILA MD This examination was interpreted and the report reviewed and electronically signed by: HUBER VILA MD on Jan 01 2023 3:23PM [facility] Radiology Study observation (narrative) [facility] X[facility] Chest PA and LateralOrder ed By: Ccf Provider on 01-01-2023 [facility] .Auto Diffon 12-23-2022 Basophil, Absolute 0.1 10 3/mcL Normal 0.0-0.2 [facility] ([place] Comment on above: Performed By: #### T ROPHS, GFR, CMP, PBNP #### [address] [address] Basophils/100 WBC (Bld) 1.5 % Normal 0.0-2.5 [facility] ([place]) Comment on above: Performed By: #### T ROPHS, GFR, CMP, PBNP #### [address] [address] Eosinophil, Absolute 0.1 10 3/mcL Normal 0.0-0.4 [facility] ([place]) Comment on above: Performed By: #### T ROPHS, GFR, CMP, PBNP #### [address] [address] Eosinophils/100 WBC (Bld) 1.1 % Normal 0.0-7.0 [facility] ([place]) Comment on above: Performed By: #### T ROPHS, GFR, CMP, PBNP #### [address] [address] Lymphocyte, Absolute 2.0 10 3/mcL Normal 0.8-3.9 [facility] ([place]) Comment on above: Performed By: #### T ROPHS, GFR, CMP, PBNP #### [address] [address] Lymphocytes/100 WBC (Bld) 36.4 % Normal 10.0-50.0 [facility] ([place]) Comment on above: Performed By: #### T ROPHS, GFR, CMP, PBNP #### [address] [address] Monocyte, Absolute 0.5 10 3/mcL Normal 0.2-1.0 [facility] ([place] Comment on above: Performed By: #### T ROPHS, GFR, CMP, PBNP #### [address] [address] Monocytes/100 WBC (Bld) 9.3 % Normal 1.7-13.0 [facility] ([place]) Comment on above: Performed By: #### T GOMEZ, GFR, CMP, PBNP #### [address] [address] Neutrophils/100 WBC (Bld) 51.7 % Normal 37.0-80.0 [facility] ([place]) Comment on above: Performed By: #### T GOMEZ, GFR, CMP, PBNP #### [address] [address] .GFRon 12-23-2022 GFR 100 ml/min/1.73sqm Normal [facility] ([place]) Comment on above: Result Comment: GFR [...] #### T GOMEZ, GFR, CMP, PBNP #### [address] [address] GFR Non- 82 ml/min/1.73sqm Normal [facility] ([place]) Comment on above: Result Comment: GFR [...] #### T GOMEZ, GFR, CMP, PBNP #### [address] [address] .MDWon 12-23-2022 Monocyte Distribution Width 18.17 Normal 0.00-20.00 [facility] ([place]) Comment on above: Result Comment: For ED adult patients suspected of sepsis, MDW<=20.0 does not rule out sepsis or risk of sepsis Performed By: #### T GOMEZ, GFR, CMP, PBNP #### [address] [address] .NEUABSon 12-23-2022 Neutrophil, Absolute 2.8 10 3/mcL Low 2.9-6.2 [facility] ([place]) Comment on above: Performed By: #### T GOMEZ, GFR, CMP, PBNP #### [address] [address] BMPon 12-23-2022 BUN/Creatinine Ratio 6 ratio Low 7-27 [facility] ([place] Comment on above: Performed By: #### T GOMEZ, GFR, CMP, PBNP #### [address] [address] Calcium [Mass/Vol] 8.1 mg/dL Low 8.4-10.2 [facility] [place] Comment on above: Performed By: #### T GOMEZ, GFR, CMP, PBNP #### [address] [address] Chloride [Moles/Vol] 102 mmol/L Normal 98-107 [facility] ([place] Comment on above: Performed By: #### T GOMEZ, GFR, CMP, PBNP #### [address] [address] CO2 [Moles/Vol] 30 mmol/L Normal 23-31 [facility] ([place]) Comment on above: Performed By: #### T ROPHS, GFR, CMP, PBNP #### [address] [address] Creatinine [Mass/Vol] 0.71 mg/dL Normal 0.55-1.02 [facility] ([place]) Comment on above: Performed By: #### T ROPHS, GFR, CMP, PBNP #### [address] [address] Electrolyte Balance 7.0 mEq/L Normal 4.0-15.0 [facility] ([place]) Comment on above: Performed By: #### T ROPHS, GFR, CMP, PBNP #### [address] [address] Glucose [Mass/Vol] 88 mg/dL Normal 80-115 [facility] [place] Comment on above: Performed By: #### T ROPHS, GFR, CMP, PBNP #### [address] [address] Potassium [Moles/Vol] 4.1 mmol/L Normal 3.5-5.1 [facility] ([place]) Comment on above: Performed By: #### T ROPHS, GFR, CMP, PBNP #### [address] [address] Sodium [Moles/Vol] 139 mmol/L Normal 136-145 [facility] [place] Comment on above: Performed By: #### T ROPHS, GFR, CMP, PBNP #### [address] [address] Urea nitrogen [Mass/Vol] 4 mg/dL Low 7-18 [facility] ([place]) Comment on above: Performed By: #### T ROPHS, GFR, CMP, PBNP #### [address] [address] CBCon 12-23-2022 Erythrocyte distribution width (RBC) [Ratio] 15.8 % High 11.5-14.5 [facility] ([place]) Comment on above: Performed By: #### T ROPHS, GFR, CMP, PBNP #### [address] [address] Hematocrit (Bld) [Volume fraction] 39.7 % Normal 37.0-47.0 [facility] ([place]) Comment on above: Performed By: #### T ROPHS, GFR, CMP, PBNP #### [address] [address] Hgb 13.2 G/dL Normal 12.0-16.0 [facility] ([place] Comment on above: Performed By: #### T ROPHS, GFR, CMP, PBNP #### [address] [address] MCH (RBC) [Entitic mass] 32.3 pg High 27.0-31.2 [facility] ([place]) Comment on above: Performed By: #### T ROPHS, GFR, CMP, PBNP #### [place] [id number] MCHC 33.2 G/dL Normal 33.0-37.0 [facility] ([place]) Comment on above: Performed By: #### T ROPHS, GFR, CMP, PBNP #### [address] [address] MCV (RBC) [Entitic vol] 97.3 fL High 80.0-94.0 [facility] ([place]) Comment on above: Performed By: #### T ROPHS, GFR, CMP, PBNP #### [address] [address] Platelet 337 10 3/mcL Normal 130-400 [facility] ([place]) Comment on above: Performed By: #### T ROPHS, GFR, CMP, PBNP #### [address] [address] Platelet mean volume (Bld) [Entitic vol] 7.7 fL Normal 7.4-10.4 [facility] ([place]) Comment on above: Performed By: #### T ROPHS, GFR, CMP, PBNP #### [address] [address] RBC 4.08 10 6/mcL Low 4.20-5.40 [facility] ([place]) Comment on above: Performed By: #### T GOMEZ, GFR, CMP, PBNP #### [place] [id number] [place], [place] [address] WBC 5.4 10 3/mcL Normal 4.6-10.8 [facility] ([place]) Comment on above: Performed By: #### T GOMEZ, GFR, CMP, PBNP #### [address] [place] [address] [place], [place] [address] LABORATORYOrdered By: Lisa Casas on 12-23-2022 Basophil, [...] B (Bld) [Mass/Vol] 540 pg/mL High 0-125 [facility] ([place]) Comment on above: Result Comment: NT-p roBNP results of less than 300 pg/mL effectively rules out acute congestive heart failure with 99% negative predictive value. Performed By: #### T GOMEZ, GFR, CMP, PBNP #### [address] [address] TROPHSon 12-23-2022 Troponin I High Sensitivity 14.1 ng/L Normal 0.0-51.4 [facility] ([place]) Comment on above: Performed By: #### T GOMEZ, GFR, CMP, PBNP #### [address] [address] XR CHEST 1 VIEWon 12-23-2022 XR CHEST [...] 2:43:01 PM Ordering Provider: JOSE ROBERTO Rivero [facility] ([place]) [place] 11-26-2022 CN Office Visit (PULMWS ) STEVEN KOENIG ([id number]) 1955 F Date Time Provider Department 11/26/22 12:45 PM ISAURO ASHER During your visit today, we recorded the following information about you: Pulse Respiration Blood pressure Weight 98/minute 20/minute 120/84 57.6 kg Iasuro Asher MD 11/26/2022 2:01 PM Signed . Respiratory [place] Note Patient name: Steven Koenig PCP: Ulises Hermosillo MD CC: Hemoptysis HPI: Steven Koenig 67 year old female current heavy smoker, over 100 pack years with PMH significant for bipolar affective disorder, h/o alcohol abuse, GERD, PAD, HLD, CAD s/p stent, severe COPD (FEV1 0.83 L 36%), oxygen dependence, previously following in [facility], new to [place]. Recent admission at [facility] in [place] for AECOPD. CXR reported as normal. Discharged [...] No chest pain or current cough. DME: [facility] DATA: PFT 05/2022: Review of spirometry shows severe obstruction without significant improvement post bronchodilators and moderate reduction in diffusing capacity Labs: Laboratory testing at [facility], normal CBC and platelet count. Negative COVID and influenza Imaging / Diagnostic Studies: DATE OF EXAM: Jul 26 2022 4:27PM [facility] 0562 - CT LUNG SCREEN WO IVCON [...] Anxiety 12/14/2015 Bipolar affective disorder, currently active ([facility]) 01/18/2016 Dr. Angie Jones[facility] Chronic bronchitis ([facility]) 07/26/2016 Closed skull fracture ([facility]) 1994 [facility], [facility] Coronary artery disease DDD (degenerative disc disease), cervical Endometriosis 2007 Essential hypertension 12/14/2015 GERD (gastroesophageal reflux disease) 03/13/2019 History of colon polyps History of gastric ulcer 12/14/2015 HLD (hyperlipidemia) Injury of left facial nerve 1994 PAD (peripheral artery disease) ([facility]) 09/28/2019 Recurrent major depression in partial remission ([facility]) 12/14/2015 S/P drug eluting coronary stent placement 08/25/2021 LAD and Dg2 Spinal stenosis ALLERGIES No Known Allergies albuterol HFA (VENTOLIN HFA) 90 mcg/actuation inhaler Inhale 2 Puffs as instructed every 6 hours as needed for wheezing/shortness of breath. mcoerdtszpm-mvootnjyt-o ilanter (TRELEGY ELLIPTA) 200-62.5-25 mcg inhalation powder [...] 8 hours (more content not included)... [facility] Telephone (INTMWS) STEVEN KOENIG ([id number]) 1955 F Date Time Provider Department 11/20/22 ULISES HERMOSILLO INTMWS During your visit today, we recorded the following information about you: Christina Diamondadrianne Greco LPN 11/20/2022 10:40 AM Signed Pt called and reports she went to [facility] ER last week for difficulty breathing and [...] tablets by mouth daily at bedtime. - gbxmjortmiv-ekomjfisy-o ilanter (TRELEGY ELLIPTA) 200-62.5-25 mcg inhalation powder [...] minutes, none*09/28/2019 07/07/2020 PAD (peripheral artery disease) ([facility]) [I73.9] 09/28/2019 Anxiety and depression (more content not included)... Normal [facility] .Auto Diffon 10-26-2022 Basophil, Absolute 0.1 10 3/mcL Normal 0.0-0.2 [facility] ([place] Comment on above: Performed By: #### T GOMEZ, GFR, CMP, PBNP #### [address] [address] Basophils/100 WBC (Bld) 1.6 % Normal 0.0-2.5 [facility] ([place] Comment on above: Performed By: #### T GOMEZ, GFR, CMP, PBNP #### [address] [address] Eosinophil, Absolute 0.2 10 3/mcL Normal 0.0-0.4 [facility] ([place] Comment on above: Performed By: #### T GOMEZ, GFR, CMP, PBNP #### [address] [address] Eosinophils/100 WBC (Bld) 2.3 % Normal 0.0-7.0 [facility] ([place]) Comment on above: Performed By: #### T GOMEZ, GFR, CMP, PBNP #### [address] [address] Lymphocyte, Absolute 2.1 10 3/mcL Normal 0.8-3.9 [facility] ([place]) Comment on above: Performed By: #### T GOMEZ, GFR, CMP, PBNP #### [address] [address] Lymphocytes/100 WBC (Bld) 29.5 % Normal 10.0-50.0 [facility] ([place]) Comment on above: Performed By: #### T ROPHS, GFR, CMP, PBNP #### [address] [address] Monocyte, Absolute 0.6 10 3/mcL Normal 0.2-1.0 [facility] ([place] Comment on above: Performed By: #### T ROPHS, GFR, CMP, PBNP #### [address] [address] Monocytes/100 WBC (Bld) 8.6 % Normal 1.7-13.0 [facility] ([place] Comment on above: Performed By: #### T ROPHS, GFR, CMP, PBNP #### [address] [address] Neutrophils/100 WBC (Bld) 58.0 % Normal 37.0-80.0 [facility] ([place] Comment on above: Performed By: #### T ROPMARILEE, GFR, CMP, PBNP #### [address] [address] .GFRon 10-26-2022 GFR 100 ml/min/1.73sqm Normal [facility] ([place]) Comment on above: Result Comment: GFR Population [...] #### T ROPHS, GFR, CMP, PBNP #### [address] [address] GFR Non- 82 ml/min/1.73sqm Normal [facility] ([place]) Comment on above: Result Comment: GFR Population [...] #### T GOMEZ, GFR, CMP, PBNP #### [address] [address] .MDWon 10-26-2022 Monocyte Distribution Width 17.60 Normal 0.00-20.00 [facility] ([place]) Comment on above: Result Comment: For ED adult patients suspected of sepsis, MDW<=20.0 does not rule out sepsis or risk of sepsis Performed By: #### T ARIELLEHS, GFR, CMP, PBNP #### [address] [address] .NEUABSon 10-26-2022 Neutrophil, Absolute 4.1 10 3/mcL Normal 2.9-6.2 [facility] ([place]) Comment on above: Performed By: #### T ROPHS, GFR, CMP, PBNP #### [address] [address] CBCon 10-26-2022 Erythrocyte distribution width (RBC) [Ratio] 17.6 % High 11.5-14.5 [facility] ([place]) Comment on above: Performed By: #### T ROPHS, GFR, CMP, PBNP #### [address] [address] Hematocrit (Bld) [Volume fraction] 39.9 % Normal 37.0-47.0 [facility] ([place]) Comment on above: Performed By: #### T GOMEZ, GFR, CMP, PBNP #### [address] [address] Hgb 13.3 G/dL Normal 12.0-16.0 [facility] ([place]) Comment on above: Performed By: #### T ARIELLEHS, GFR, CMP, PBNP #### [address] [address] MCH (RBC) [Entitic mass] 32.2 pg High 27.0-31.2 [facility] ([place]) Comment on above: Performed By: #### T GOMEZ, GFR, CMP, PBNP #### [place] [address] MCHC 33.4 G/dL Normal 33.0-37.0 [facility] ([place]) Comment on above: Performed By: #### T ARIELLEHS, GFR, CMP, PBNP #### [address] [address] MCV (RBC) [Entitic vol] 96.4 fL High 80.0-94.0 [facility] ([place] Comment on above: Performed By: #### T GOMEZ, GFR, CMP, PBNP #### [address] [address] Platelet 387 10 3/mcL Normal 130-400 [facility] ([place]) Comment on above: Performed By: #### T ROPHS, GFR, CMP, PBNP #### [address] [address] Platelet mean volume (Bld) [Entitic vol] 7.1 fL Low 7.4-10.4 [facility] ([place]) Comment on above: Performed By: #### T ROPHS, GFR, CMP, PBNP #### [address] [address] RBC 4.14 10 6/mcL Low 4.20-5.40 [facility] ([place]) Comment on above: Performed By: #### T ROPHS, GFR, CMP, PBNP #### [address] [address] WBC 7.1 10 3/mcL Normal 4.6-10.8 [facility] ([place]) Comment on above: Performed By: #### T ROPHS, GFR, CMP, PBNP #### [address] [address] CMPon 10-26-2022 Albumin Level 3.3 G/dL Low 3.4-4.8 [facility] ([place]) Comment on above: Performed By: #### T GOMEZ, GFR, CMP, PBNP #### [address] [address] Albumin/Globulin [Mass ratio] 0.9 {ratio} Low 1.1-2.5 [facility] ([place]) Comment on above: Performed By: #### T GOMEZ, GFR, CMP, PBNP #### [address] [address] ALP [Catalytic activity/Vol] 83 U/L Normal 40-135 [facility] ([place]) Comment on above: Performed By: #### T GOMEZ, GFR, CMP, PBNP #### [address] [address] ALT [Catalytic activity/Vol] 29 U/L Normal 14-59 [facility] ([place]) Comment on above: Performed By: #### T GOMEZ, GFR, CMP, PBNP #### [address] [address] AST [Catalytic activity/Vol] 21 U/L Normal 10-40 [facility] ([place]) Comment on above: Performed By: #### T ROPHS, GFR, CMP, PBNP #### [address] [address] Bili Total 0.1 mg/dL Low 0.2-1.0 [facility] ([place]) Comment on above: Result Comment: Use of this assay is not recommended for patients undergoing treatment with eltrombopag due to the potential for falsely elevated results. Performed By: #### T ROPHS, GFR, CMP, PBNP #### [place] [id number] BUN/Creatinine Ratio 14 ratio Normal 7-27 [facility] ([place] Comment on above: Performed By: #### T ROPHS, GFR, CMP, PBNP #### [place] [id number] Calcium [Mass/Vol] 8.5 mg/dL Normal 8.4-10.2 [facility] [place] Comment on above: Performed By: #### T ROPHS, GFR, CMP, PBNP #### [place] [address] Chloride [Moles/Vol] 104 mmol/L Normal 98-107 [facility] ([place] Comment on above: Performed By: #### T ROPHS, GFR, CMP, PBNP #### [place] [address] CO2 [Moles/Vol] 28 mmol/L Normal 23-31 [facility] ([place]) Comment on above: Performed By: #### T ROPHS, GFR, CMP, PBNP #### [place] [address] Creatinine [Mass/Vol] 0.71 mg/dL Normal 0.55-1.02 [facility] ([place]) Comment on above: Performed By: #### T ROPHS, GFR, CMP, PBNP #### [address] [address] Electrolyte Balance 8.0 mEq/L Normal 4.0-15.0 [facility] ([place]) Comment on above: Performed By: #### T ROPHS, GFR, CMP, PBNP #### [place] [address] Globulin 3.5 G/dL Normal [facility] ([place]) Comment on above: Performed By: #### T ROPHS, GFR, CMP, PBNP #### [address] [address] Glucose [Mass/Vol] 88 mg/dL Normal 80-115 [facility] [place] Comment on above: Performed By: #### T GOMEZ, GFR, CMP, PBNP #### [address] [address] Potassium [Moles/Vol] 4.5 mmol/L Normal 3.5-5.1 [facility] ([place]) Comment on above: Performed By: #### T GOMEZ, GFR, CMP, PBNP #### [address] [address] Sodium [Moles/Vol] 140 mmol/L Normal 136-145 [facility] [place] Comment on above: Performed By: #### T GOMEZ, GFR, CMP, PBNP #### [address] [address] Total Protein 6.8 G/dL Normal 6.4-8.2 [facility] ([place]) Comment on above: Performed By: #### T GOMEZ, GFR, CMP, PBNP #### [address] [address] Urea nitrogen [Mass/Vol] 10 mg/dL Normal 7-18 [facility] ([place]) Comment on above: Performed By: #### T GOMEZ, GFR, CMP, PBNP #### [address] [address] [id number] 10-26-2022 SARS-CoV-2 (COVID-19) RNA IVANA+probe Ql (Unsp spec) Negative Normal Negative [facility] ([place]) Comment on above: Performed By: #### T ROPHS, GFR, CMP, PBNP #### [address] [address] SARS-CoV-2 (COVID-19) RNA IVANA+probe Ql (Unsp spec) Normal [facility] ([place]) Comment on above: Result Comment: Nega tive [...] #### T GOMEZ, GFR, CMP, PBNP #### [address] [address] FLURSVon 10-26-2022 Flu A PCR (AO) Negative Normal Negative [facility] ([place]) Comment on above: Result Comment: Posi tive [...] virus (RSV) nucleic acid in nasopharyngeal swab (FIELD RESEARCH ASSISTANT) specimens from patients with signs and symptoms of respiratory infection in conjunction with clinical and laboratory findings. The test is intended for use as an aid in the differential diagnosis of influenza A virus, influenza B virus, and RSV in humans and is not intended to detect influenza C. Performed By: #### T GOMEZ, GFR, CMP, PBNP #### [place] [address] [place], [place] [address] Flu B PCR (AO) Negative Normal Negative [facility] ([place]) Comment on above: Result Comment: Posi tive [...] REPEAT COLLECTION AND TESTING IS RECOMMENDED. The [employer]PLE Flu A/B & RSV Assay is a real-time polymerase chain reaction (PCR) based qualitative in vitro diagnostic test for the direct detection and differentiation of influenza A virus, influenza B virus, and respiratory syncytial virus (RSV) nucleic acid in nasopharyngeal swab (FIELD RESEARCH ASSISTANT) specimens from patients with signs and symptoms of respiratory infection in conjunction with clinical and laboratory findings. The test is intended for use as an aid in the differential diagnosis of influenza A virus, influenza B virus, and RSV in humans and is not intended to detect influenza C. Performed By: #### T GOMEZ, GFR, CMP, PBNP #### [address] [address] RSV PCR (AO) Negative Normal Negative [facility] ([place]) Comment on above: Result Comment: Posi tive [...] virus (RSV) nucleic acid in nasopharyngeal swab (FIELD RESEARCH ASSISTANT) specimens from patients with signs and symptoms of respiratory infection in conjunction with clinical and laboratory findings. The test is intended for use as an aid in the differential diagnosis of influenza A virus, influenza B virus, and RSV in humans and is not intended to detect influenza C. Performed By: #### T ROPHS, GFR, CMP, PBNP #### [place] [id number] [place] [address] LABORATORYOrdered By: Jensen Fay on 10-26-2022 FLUAV [...] B (Bld) [Mass/Vol] 521 pg/mL High 0-125 [facility] ([place]) Comment on above: Result Comment: NT-p roBNP results of less than 300 pg/mL effectively rules out acute congestive heart failure with 99% negative predictive value. Performed By: #### T ROPHS, GFR, CMP, PBNP #### [address] [address] TOXSCon 10-26-2022 U Ampheta (AO) Negative Normal [facility] ([place]) Comment on above: Performed By: #### U A, TOXSC #### [address] [address] U Nanci (AO) Negative Normal [facility] ([place]) Comment on above: Performed By: #### U A, TOXSC #### [address] [address] U Heron (AO) Negative Normal [facility] ([place]) Comment on above: Performed By: #### U A, TOXSC #### [address] [address] U Cannab (AO) Negative [facility] ([place] Comment on above: Performed By: #### U A, TOXSC #### [address] [address] U Cocaine (AO) Negative [facility] ([place] Comment on above: Performed By: #### U A, TOXSC #### [address] [address] U Methadone (AO) Negative [facility] ([place] Comment on above: Performed By: #### U A, TOXSC #### [address] [address] U PCP (AO) Negative [facility] ([place] Comment on above: Performed By: #### U A, TOXSC #### [address] [address] U TCA (AO) Negative [facility] ([place] Comment on above: Performed By: #### U A, TOXSC #### [address] [address] Urine Opiates (AO) Negative [facility] ([place] Comment on above: Performed By: #### U A, TOXSC #### [address] [address] TROPHSon 10-26-2022 Troponin I High Sensitivity 15.6 ng/L Normal 0.0-51.4 [facility] ([place]) Comment on above: Performed By: #### T ROPHS, GFR, CMP, PBNP #### [address] [address] UAon 10-26-2022 Color (U) Yellow [facility] ([place] Comment on above: Performed By: #### U A, TOXSC #### [address] [address] Glucose (U) [Mass/Vol] Negative Normal Negative [facility] ([place]) Comment on above: Performed By: #### U A, TOXSC #### [address] [address] Ketones Ql (U) Negative Normal Negative [facility] ([place]) Comment on above: Performed By: #### U A, TOXSC #### [address] [address] UA Appear Clear Normal Clear [facility] ([place]) Comment on above: Performed By: #### U A, TOXSC #### [address] [address] UA Blood Negative Normal Negative [facility] ([place] Comment on above: Performed By: #### U A, TOXSC #### [place] [address] UA Leuk Est Negative Normal Negative [facility] ([place] Comment on above: Performed By: #### U A, TOXSC #### [place] [address] UA Nitrite Negative Normal Negative [facility] ([place] Comment on above: Performed By: #### U A, TOXSC #### [place] [address] UA pH 5.5 Normal 5.0 - 8.0 [facility] ([place]) Comment on above: Performed By: #### U A, TOXSC #### [place] [address] UA Protein Negative Normal Negative [facility] ([place]) Comment on above: Performed By: #### U A, TOXSC #### [address] [address] UA Spec Grav <=1.005 Abnormal 1.015-1.025 [facility] ([place]) Comment on above: Performed By: #### U A, TOXSC #### [place] [address] UA Specimen Type Not Given Normal [facility] ([place] Comment on above: Performed By: #### U A, TOXSC #### [place] [address] [place], [place] [address] UA Urobilinogen 0.2 E.U./dL Normal 0.2-1.0 [facility] ([place]) Comment on above: Performed By: #### U A, TOXSC #### [facility] [address] [place], [place] [address] Urobilinogen (U) [Mass/Vol] Negative Normal Negative [facility] ([place]) Comment on above: Performed By: #### U A, TOXSC #### [facility] [address], [place] [address] XR CHEST 1 VIEWon 10-26-2022 XR CHEST [...] 10/26/2022 7:06:29 PM Ordering Provider: BRIAN Rivero [facility]) CT LUNG SCREEN WO IVCONon CT LUNG SCREEN WO IVCON * * *Final Repor t* * * DATE OF EXAM: Jul 26 2022 4:27PM [facility] 0562 - CT LUNG SCREEN WO IVCON [...] without contrast. MQ: [id number]_6 Patient characteristics: * Tljw-ls-Fxzcw: 1955; Age at exam: 67 years * Gender: Female * Lung Disease: Asymptomatic (no signs or symptoms of lung disease) * Number of Pack Years: 55 * Current smoker (=0) or Number of Years since Quit: 0 * Ordering provider and NPI: NICOLE KIMIMARCELLE KENNY [id number] * Interpreting radiologist and NPI: Ervin [id number] Exam acquisition parameters: * Exam Date: 07/26/2022 4:27 PM * Site: [facility] * * CT System Marine Engineering Consultant: [employer] * CT System Model: Dual Source * [...] Descending stents in place; Right Coronary mild Turning Machine Operator (topogram) images: No additional findings. IMPRESSION: LungRADS category: 2 LungRADS modifier: None LungRADS 0 reason: n/a Recommendations: Continue annual screening with LDCT in 12 months. Other actionable findings: ====== Reference: [employer]. Lung CT Screening Reporting and Data System (Lung-RADS). Available at: http://www.acr.org/Qual ity-Safety/Resources/Shaina RutledgeS 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: SRAVANI Transcribe Date/Time: Jul 27 2022 8:04A Dictated by : VEE GAMINO MD This examination was interpreted and the report reviewed and electronically signed by: VEE GAMINO MD on Jul 27 2022 8:16AM EST [id number] Normal [facility] OXIMETRY WITH AMBULATIONon 0 07-09-2022 [facility] ECHOon 05-21-2022 [facility] .Auto Diffon 05-05-2022 Basophil, Absolute 0.0 10 3/mcL Normal 0.0-0.3 [facility] ([place]) Comment on above: Performed By: #### T GOMEZ, GFR, CMP, PBNP #### [address] [address] Basophils/100 WBC (Bld) 0.1 % Normal 0.0-2.5 [facility] ([place]) Comment on above: Performed By: #### T GOMEZ, GFR, CMP, PBNP #### [address] [address] Eosinophil, Absolute 0.0 10 3/mcL Normal 0.0-0.7 [facility] ([place]) Comment on above: Performed By: #### T ROPHS, GFR, CMP, PBNP #### [address] [address] Eosinophils/100 WBC (Bld) 0.0 % Normal 0.0-6.0 [facility] ([place]) Comment on above: Performed By: #### T ROPHS, GFR, CMP, PBNP #### [address] [address] Lymphocyte, Absolute 0.6 10 3/mcL Low 0.9-4.3 [facility] ([place]) Comment on above: Performed By: #### T ROPHS, GFR, CMP, PBNP #### [address] [address] Lymphocytes/100 WBC (Bld) 5.1 % Low 20.0-40.0 [facility] ([place]) Comment on above: Performed By: #### T ROPHS, GFR, CMP, PBNP #### [address] [address] Monocyte, Absolute 0.3 10 3/mcL Normal 0.1-1.4 [facility] ([place]) Comment on above: Performed By: #### T ROPHS, GFR, CMP, PBNP #### [address] [address] Monocytes/100 WBC (Bld) 2.4 % Normal 2.0-13.0 [facility] ([place]) Comment on above: Performed By: #### T ROPHS, GFR, CMP, PBNP #### [address] [address] Neutrophils/100 WBC (Bld) 92.4 % High 50.0-75.0 [facility] ([place]) Comment on above: Performed By: #### T ROPHS, GFR, CMP, PBNP #### [address] [address] .GFRon 05-05-2022 GFR >60 Normal [facility] ([place]) Comment on above: Result Comment: GFR Population [...] #### T GOMEZ, GFR, CMP, PBNP #### [address] [address] GFR Non- >60 Normal [facility] ([place]) Comment on above: Result Comment: GFR Population [...] #### T GOMEZ, GFR, CMP, PBNP #### [address] [address] .MDWon 05-05-2022 Monocyte Distribution Width Not performed Normal 0.00-20.00 [facility] ([place]) Comment on above: Result Comment: MDW testing performed only on adult ER patients between the ages of 18-89 years. Performed By: #### T GOMEZ, GFR, CMP, PBNP #### [address] [address] .NEUABSon 05-05-2022 Neutrophil, Absolute 10.8 10 3/mcL High 2.3-8.1 [facility] ([place]) Comment on above: Performed By: #### T GOMEZ, GFR, CMP, PBNP #### Anthony [address] [address] BMPon 05-05-2022 BUN/Creatinine Ratio 29.6 ratio High 10.0-22.0 [facility] ([place]) Comment on above: Performed By: #### T ROPHS, GFR, CMP, PBNP #### [address] [address] Calcium [Mass/Vol] 8.5 mg/dL Low 8.7-10.4 [facility] ([place]) Comment on above: Performed By: #### T ROPHS, GFR, CMP, PBNP #### [address] [address] Chloride [Moles/Vol] 106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 SPECIMEN Performed By: #### 5 8410-2 ####[facility] LABORATORYCLIA [id number] [address] Platelets (Bld) [#/Vol] 398 10*3/uL Normal 150-400 [facility] Comment on above: Order Comment: Speci men Type: BLOOD SPECIMEN Performed By: #### 5 8410-2 ####[facility] LABORATORYCLIA [id number] [address] OF [facility] RBC (Bld) [#/Vol] 4.57 10*6/uL Normal 3.90-5.20 [facility] Comment on above: Order Comment: Speci men Type: BLOOD SPECIMEN Performed By: #### 5 8410-2 ####[facility] LABORATORYCLIA [id number] [address] WBC (Bld) [#/Vol] 7.70 10*3/uL Normal 3.70-11.00 [facility] Comment on above: Order Comment: Speci men Type: BLOOD SPECIMEN Performed By: #### 5 8410-2 ####[facility] LABORATORYCLIA [id number] [address] CNOVon 09-27-2021 CNOV Office Visit (AGCARDPOB) STEVEN KOENIG ([id number]) 1955 F Date Time Provider Department 09/27/21 [...] seen by myself on 06/12/2021 at our [place] office. Stress testing was done d/t symptoms and need for cardiac clearance. TID ratio was elevated so she was recommended a [facility] and ultimately had PCI of the LAD/D1 [...] Alcohol use disorder 01/18/2016 Dr. Angie Jones, [facility] - Anxiety 12/14/2015 - Bipolar affective disorder, currently active ([facility]) 01/18/2016 Dr. Angie Jones, [facility] - Chronic bronchitis ([facility]) 07/26/2016 - Closed skull fracture ([facility]) 1994 [facility] - Coronary artery disease - DDD (degenerative disc disease), cervical - Endometriosis 2007 - Essential hypertension 12/14/2015 - GERD (gastroesophageal reflux disease) 03/13/2019 - History of colon polyps - History of gastric ulcer 12/14/2015 - HLD (hyperlipidemia) - Injury of left facial nerve 1994 - PAD (peripheral artery disease) ([facility]) 09/28/2019 - Recurrent major depression in partial remission ([facility]) 12/14/2015 - S/P drug eluting coronary stent placement 08/25/2021 LAD and Dg2 - Spinal stenosis PAST SURGICAL HISTORY Procedure Laterality Date - APPENDECTOMY 1979 - COLONOSCOP W/ OR W/O [facility] SPEC 2010 Colonoscopy - COLONOSCOPY 04/03/2017 diverticulosis- repeat 10 years - [place] FACIAL NERVE,TOTAL Left 1989 [facility] - EGD 04/03/2017 Gastritis, duodenitis, GERD [...] treat (more content not included)... Normal [facility] LIPID PANEL BASICon 09-27-20 21 Cholesterol [Mass/Vol] 189 mg/dL Normal <200 [facility] Comment on above: Order Comment: Speci men Type: BLOOD SPECIMEN Result Comment: <200 mg/dL, Desirable 200-239 mg/dL, Borderline high >239 mg/dL, High Performed By: #### L IPB #### [facility] CLIA [id number] [address] Cholesterol in HDL [Mass/Vol] 70 mg/dL Normal >39 [facility] Comment on above: Order Comment: Speci men Type: BLOOD SPECIMEN Result Comment: 40-5 9 mg/dL, Acceptable >59 mg/dL, High: Negative risk factor for coronary heart disease <40 mg/dL, Low: Positive risk factor for coronary heart disease Performed By: #### L IPB #### [facility] CLIA [id number] [address] Cholesterol in LDL [Mass/Vol] 101 mg/dL High <100 [facility] Comment on above: Order Comment: Speci men Type: BLOOD SPECIMEN Result Comment: <100 mg/dL, Optimal 100-129 mg/dL, Near optimal/above optimal 130-159 mg/dL, Borderline high 160-189 mg/dL, High >189 mg/dL, Very high Secondary prevention optimal LDL Cholesterol levels are recommended to be < 70 mg/dL Performed By: #### L IPB #### [facility] CLIA [id number] [address] Cholesterol in LDL/Cholesterol in HDL [Mass ratio] 1.44 {ratio} Normal <2.54 [facility] Comment on above: Order Comment: Speci men Type: BLOOD SPECIMEN Result Comment: Refe rence: 1. National Cholesterol Education Program ATP III Guideline At-A-Glance Quick Desk Reference: National Heart, Lung, and Blood [place]. National Institutes of Health. 2001: NIH Publication No. 01-3305. 2. An International Atherosclerosis Society position paper: global recommendations for the management of dyslipidemia: executive summary, Atherosclerosis. 2014: 232(2):410-413. Performed By: #### L IPB #### [facility] CLIA [id number] [address] Cholesterol in VLDL [Mass/Vol] 18 mg/dL Normal <30 [facility] Comment on above: Order Comment: Speci men Type: BLOOD SPECIMEN Performed By: #### L IPB #### [facility] CLIA [id number] [address] Cholesterol non HDL [Mass/Vol] 119 mg/dL Normal <130 [facility] Comment on above: Order Comment: Speci men Type: BLOOD SPECIMEN Result Comment: <130 mg/dL, Optimal 130-159 mg/dL, Near optimal/above optimal 160-189 mg/dL, Borderline high 190-219 mg/dL, High >219 mg/dL, Very high Secondary prevention optimal non HDL Cholesterol levels are recommended to be <100 mg/dL Performed By: #### L IPB #### [facility] CLIA [id number] [address] Cholesterol.total/Izabella sterol in HDL [Mass ratio] 2.70 {ratio} Normal <5.10 [facility] Comment on above: Order Comment: Speci men Type: BLOOD SPECIMEN Performed By: #### L IPB #### [facility] CLIA [id number] [address] FASTING TIME [address] [facility] Comment on above: Order Comment: Speci men Type: BLOOD SPECIMEN Performed By: #### L IPB #### [facility] CLIA [id number] [address] Triglyceride [Mass/Vol] 88 mg/dL Normal <150 [facility] Comment on above: Order Comment: Speci men Type: BLOOD SPECIMEN Result Comment: <150 mg/dL, Normal 150-199 mg/dL, Borderline high 200-499 mg/dL, High >499 mg/dL, Very high Performed By: #### L IPB #### [facility] CLIA [id number] [address] Frank 09-01-2021 JEOVANNY Telephone (EARNESTINE) CLARISESSTEVEN DIAZ ([id number]) 1955 F Date Time Provider Department 09/01/21 [...] Encounter Status:Closed by TRACY RAMIRES on 09/01/21 [facility] CNPN Telephone (AKCRL) STEVEN KOENIG ([id number]) 1955 F Date Time Provider Department 09/01/21 GUILLERMO MCGILL During your visit today, we recorded the following information about you: Guillermo Mcgill, Law Instructor 09/01/2021 10:44 AM Signed Faxed to [place] based on location. Guillermo Mcgill CEP, Cardiopulmonary Rehab [id number] Allergies As of Date: 09/01/2021 (No Known Allergies) Date Reviewed: 08/31/2021 Reviewed by: Babatunde Lomeli MD - Fully Assessed Reason for Visit: Cardiac Rehab [4088] Prescriptions as of 09/01/2021 - oxyCODONE-acetaminophen (PERCOCET) [...] Encounter Status:Closed by GUILLERMO MCGILL on 09/01/21 [facility] 08-26-2021 [facility] HNO ID: [id number] Author: Claude Thao MD Service: Interventional Cardiology [...] tab (more content not included)... Normal [facility] BRIEF OP NOTon 08-25-2021 BRIEF OP NOT HNO ID: [id number] Author: Juan Ramon Pichardo MD Service: Cardiovascular [...] LAD portion of the stent 3.7mm, with mormon of blood flow, no residual stenosis. No complications. Recommend: ASA/Plavix Continue other guideline directed medical therapy Juan Ramon Kemp MD Pole Tester of Internal Medicine [facility] Regional Section of Interventional Cardiology Bundling Machine Operator of Structural Heart Disease [address], [address] [place] [address] Facsimile: [phone] Email: [email or web address] Normal [facility] Basic metabolic 2000 panelon 08-25-2021 Anion gap [Moles/Vol] 14 mmol/L Normal 9-18 [facility] Comment on above: Order Comment: Speci men Type: BLOOD SPECIMEN Performed By: #### 2 4321-2 ####[facility] LABORATORYCLIA [id number] [place] [address] [place] Calcium [Mass/Vol] 9.2 mg/dL Normal 8.5-10.2 [facility] Comment on above: Order Comment: Speci men Type: BLOOD SPECIMEN Performed By: #### 2 4321-2 ####[facility] LABORATORYCLIA [id number] [address] Chloride [Moles/Vol] 102 mmol/L Normal 97-105 [facility] Comment on above: Order Comment: Speci men Type: BLOOD SPECIMEN Performed By: #### 2 4321-2 ####[facility] LABORATORYCLIA [id number] [address] CO2 [Moles/Vol] 21 mmol/L Low 22-30 [facility] Comment on above: Order Comment: Speci men Type: BLOOD SPECIMEN Performed By: #### 2 4321-2 ####[facility] LABORATORYCLIA [id number] [address] Creatinine [Mass/Vol] 0.72 mg/dL Normal 0.58-0.96 [facility] Comment on above: Order Comment: Speci men Type: BLOOD SPECIMEN Performed By: #### 2 4321-2 ####[facility] LABORATORYCLIA [id number] [address] GFR/1.73 sq M.predicted MDRD (S/P/Bld) [Vol rate/Area] mL/min/{1.73_m2} Normal [facility] Comment on above: Order Comment: Speci [...] By: #### 2 4321-2 ####[facility] LABORATORYCLIA [id number] [address] [place] Glucose [Mass/Vol] 92 mg/dL Normal 74-99 [facility] Comment on above: Order Comment: Speci men Type: BLOOD SPECIMEN Result Comment: The [place] Diabetes Association (ADA) provides guidance for cutoff [...] Standards of Medical Care in Diabetes 2016, [place] Diabetes Association. Diabetes Care. 2016.39(Suppl 1). Performed By: #### 2 4321-2 ####[facility] LABORATORYCLIA [id number] [address] [place] Potassium [Moles/Vol] 4.7 mmol/L Normal 3.7-5.1 [facility] Comment on above: Order Comment: Speci men Type: BLOOD SPECIMEN Performed By: #### 2 4321-2 ####[facility] LABORATORYCLIA [id number] [address] [place] Sodium [Moles/Vol] 137 mmol/L Normal 136-144 [facility] Comment on above: Order Comment: Speci men Type: BLOOD SPECIMEN Performed By: #### 2 4321-2 ####[facility] LABORATORYCLIA [id number] [place] [address] [place] Urea nitrogen [Mass/Vol] 11 mg/dL Normal 7-21 [facility] Comment on above: Order Comment: Speci men Type: BLOOD SPECIMEN Performed By: #### 2 4321-2 ####[facility] LABORATORYCLIA [id number] [address] [place] CBC panel Auto (Bld)on 08-25 Erythrocyte distribution width (RBC) [Ratio] 15.4 % High 11.5-15.0 [facility] Comment on above: Order Comment: Speci men Type: BLOOD SPECIMEN Performed By: #### 5 8410-2 #### [facility] CLIA [id number] [address] Hematocrit (Bld) [Volume fraction] 46.7 % High 36.0-46.0 [facility] Comment on above: Order Comment: Speci men Type: BLOOD SPECIMEN Performed By: #### 5 8410-2 #### [facility] CLIA [id number] [address] Hemoglobin (Bld) [Mass/Vol] 14.9 g/dL Normal 11.5-15.5 [facility] Comment on above: Order Comment: Speci men Type: BLOOD SPECIMEN Performed By: #### 5 8410-2 #### [facility] CLIA [id number] [address] MCH (RBC) [Entitic mass] 31.6 pg Normal 26.0-34.0 [facility] Comment on above: Order Comment: Speci men Type: BLOOD SPECIMEN Performed By: #### 5 8410-2 #### [facility] CLIA [id number] [address] MCHC (RBC) [Mass/Vol] 31.9 g/dL Normal 30.5-36.0 [facility] Comment on above: Order Comment: Speci men Type: BLOOD SPECIMEN Performed By: #### 5 8410-2 #### [facility] CLIA [id number] [address] MCV (RBC) [Entitic vol] 98.9 fL Normal 80.0-100.0 [facility] Comment on above: Order Comment: Speci men Type: BLOOD SPECIMEN Performed By: #### 5 8410-2 #### [facility] CLIA [id number] [address] Nucleated RBC (Bld) [#/Vol] 10*3/uL Normal <0.01 [facility] Comment on above: Order Comment: Speci men Type: BLOOD SPECIMEN Performed By: #### 5 8410-2 #### [facility] CLIA [id number] [address] Platelet mean volume (Bld) [Entitic vol] 10.4 fL Normal 9.0-12.7 [facility] Comment on above: Order Comment: Speci men Type: BLOOD SPECIMEN Performed By: #### 5 8410-2 #### [facility] CLIA [id number] [address] Platelets (Bld) [#/Vol] 375 10*3/uL Normal 150-400 [facility] Comment on above: Order Comment: Speci men Type: BLOOD SPECIMEN Performed By: #### 5 8410-2 #### [facility] CLIA [id number] [address] RBC (Bld) [#/Vol] 4.72 10*6/uL Normal 3.90-5.20 [facility] Comment on above: Order Comment: Speci men Type: BLOOD SPECIMEN Performed By: #### 5 8410-2 #### [facility] CLIA [id number] [address] WBC (Bld) [#/Vol] 10.76 10*3/uL Normal 3.70-11.00 [facility] Comment on above: Order Comment: Speci men Type: BLOOD SPECIMEN Performed By: #### 5 8410-2 #### [facility] CLIA [id number] [address] HISTORY PHYSICALon HISTORY PHYSICAL HNO ID: [id number] Author: Juan Ramon Pichardo MD Service: Cardiovascular [...] 25, 2021 TIME: 9:[address] [facility] CNPNon 08-15-2021 JEOVANNY Telephone (AGCARDPOB ) STEVEN KOENIG ([id number]) 1955 F Date Time Provider Department 08/15/21 TRACY RAMIRES During your visit today, we recorded the following information about you: Suzy Cordero RN 08/15/2021 8:11 AM Signed ----- Message from Tracy Ramires APRN.HOME ENERGY CONSULTANT sent at 08/15/2021 7:51 AM EDT ----- [...] type [R07.9] Pre-operative cardiovascular examination [Z01.810] Order(s):CARDIAC MANAGER DISCOVERY ORDER [[id number]] Order #: [id number]: 1 CBC [[facility]] Order #: [id number] FUTURE Prescriptions as of 08/16/2021 - oxyCODONE-acetaminophen [...] i (more content not included)... Normal [facility] NM CARDIAC PERF STRESS/PHARM on 08-14-2021 NM CARDIAC PERF STRESS/PHARM * * *Final Report* * * DATE OF EXAM: Aug 14 2021 4:02PM KELI 0006 - NM CARDIAC PERF STRESS/PHARM / PROCEDURE REASON: multiple diagnoses * * * * Physician Interpretation * * * * Stress Shirt Operator Report: [facility] Date of service: 08/14/2021 3:00:40 PM Supervising [...] 60 minutes later. See administered doses below. [facility] Date of service: 08/14/2021 3:00:40 PM Indication: [...] of scarring. Final ---- Stress ECG Report: [facility] Date of service: 08/14/2021 3:00:40 PM Ordering physician: TRACY RAMIRES Specialist: Grace Sagastume Certified Nurse Practitioner: Guera Fowler Stress ECG interpreting physician: Armando [...] 146/80 mmHg. The double product achieved was [address]. Indication: Shortness of breath Medical History and [...] / 80 mmHg Rate Pressure Product (RPP): 17014 St (more content not included)... [facility] Frank 06-21-2021 JEOVANNY Telephone (AGCARDPOB ) STEVEN KOENIG ([id number]) 1955 F Date Time Provider Department 06/21/21 TRACY RAMIRES During your visit today, we recorded the following information about you: Tracy Alan LPN 06/21/2021 8:38 AM Signed ----- Message from Tracy Ramires APRN.HOME ENERGY CONSULTANT sent at 06/21/2021 7:27 AM EDT ----- Please call patient and let her know she has mild non obstructive carotid disease. Thank you! Tracy Alan LPN 06/21/2021 8:40 AM Signed I called and left a message for to call [facility] for test results. PETERSON Grover LPN 06/21/2021 [...] Encounter Status:Closed by DIANA MAHAN on 06/21/21 [facility] No Panel InformationOrdered By: Ccf Provider on 01-27-2021 [facility] XR Chest PA and Lateralon IMPRESSION: 1. Findings compatible with underlying emphysema. 2. Mild opacity at the left lateral base, atelectasis versus focus of bronchopneumonia in the appropriate clinical setting. Follow-up to resolution is advised. 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: PSCB Transcribe Date/Time: Jan 27 2021 11:43A Dictated by : ERENDIRA PAREDES MD This examination was interpreted and the report reviewed and electronically signed by: ERENDIRA PAREDES MD on Jan 27 2021 11:45AM [facility] DIVISION OF RADIOLOGY * * *Final [...] fractures again identified. DIVISION OF RADIOLOGY Provider, [facility] - 01/27/2021 * * *Final [...] clinical setting. Follow-up to resolution is advised. 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: SRAVANI Transcribe Date/Time: Jan 27 2021 11:43A Dictated by : ERENDIRA PAREDES MD This examination was interpreted and the report reviewed and electronically signed by: ERENDIRA PAREDES MD on Jan 27 2021 11:45AM [facility] Radiology Study observation (narrative) Jeronimo contreras [facility] XR HIP BILAT 5V PEL/AP/LAT [...] Impression: 1. No acute fracture or dislocation. 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: [facility] Transcribe Date/Time: Jan 27 2021 11:57A Dictated by : ANASTASIYA GIBBS MD This examination was interpreted and the report reviewed and electronically signed by: ANASTASIYA GIBBS MD on Jan 27 2021 11:58AM [facility] OF RADIOLOGY Provider, [facility] - 01/27/2021 * * *Final [...] Impression: 1. No acute fracture or dislocation. 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: [facility] Transcribe Date/Time: Jan 27 2021 11:57A Dictated by : ANASTASIYA GIBBS MD This examination was interpreted and the report reviewed and electronically signed by: ANASTASIYA GIBBS MD on Jan 27 2021 11:58AM EST [facility] Radiology Study observation (narrative) Jeronimo contreras [facility] Basic Metabolic Panelon 06-2 Calcium 8.4 mg/dL Normal 8.2-10.1 [facility] Comment on above: Result Comment: Repe ated Performed By: #### H EMDF, BMP3 ####[facility] [id number] [place] [address] Chloride 100 mmol/L Normal 98-109 [facility] Comment on above: Result Comment: Repe ated Performed By: #### H EMDF, BMP3 ####[facility] [employer] [id number] [place] [address] Sodium 134 mmol/L Low 135-145 [facility] Comment on above: Result Comment: Repe ated Performed By: #### H EMDF, BMP3 ####[facility] [employer] [address] [address] Anion gap 7 Normal [facility] Comment on above: Performed By: #### H EMDF, BMP3 ####[facility] [employer] [address] [address] CO2 27 mmol/L Normal 21-32 [facility] Comment on above: Performed By: #### H EMDF, BMP3 ####[facility] [id number] [place] [address] Creatinine 0.79 mg/dL Normal 0.55-1.40 [facility] Comment on above: Performed By: #### H EMDF, BMP3 ####[facility] [address] [place] [address] eGFR (black) mL/min/{1.73_m2} Normal >60 [facility] Comment on above: Performed By: #### H EMDF, BMP3 ####[facility] [address] [place] [address] eGFR (non-black) mL/min/{1.73_m2} Normal >60 [facility] Comment on above: Result Comment: Sour ce- MDRD equation with creatinine calibration to IDMS(NKDEP) eGFR not recommended for drug dose adjustment Performed By: #### H EMDF, BMP3 ####[facility] [address] [place] [address] Glucose mass conc 98 mg/dL Normal 70-100 [facility] Comment on above: Performed By: #### H GREY BMP3 ####[address] [place] [address] Potassium molar conc 4.6 mmol/L Normal 3.5-5.1 [facility] [email or web address] Comment on above: Performed By: #### H EMDF, BMP3 ####[facility] [employer] [address] [address] Urea nitrogen 20 mg/dL Normal 7-[address] [facility] Comment on above: Performed By: #### H GREY BMP3 ####[facility] [employer] [address] [address] Glucose,Bedsideon 05-04-2018 Glucose mass conc 99 mg/dL Normal 70-100 [facility] Comment on above: Result Comment: Test performed by glucose meter. Results may be 10%-15% lowerthan serum/plasma values. (CLIA ID [id number]) Performed By: #### B GLU ####[facility] [employer] [address] [address] Hemogram w/ Autodiffon 05-04 Abs Baso Cnt 0.1 10*3/uL Normal 0.0-0.[address] [facility] Comment on above: Performed By: #### H EMDF, BMP3 ####[facility] [employer] [address] [address] Basophils/100 WBC Auto (Bld) 1.0 % Normal 0.0-2.0 [facility] Comment on above: Performed By: #### H EMDF, BMP3 ####[facility] [employer] [id number] [place] [address] Eosinophils 0.4 10*3/uL Normal 0.0-0.5 [facility] Comment on above: Performed By: #### H EMDF, BMP3 ####[facility] [employer] [address] [address] Eosinophils/100 leukocytes 4.3 % Normal 1.0-6.0 [facility] Comment on above: Performed By: #### H EMDF, BMP3 ####[address] [address] Erythrocyte distribution width Auto Ratio (RBC) 14.7 % High 11.5-14.5 [facility] Comment on above: Performed By: #### H EMDF, BMP3 ####[address] [address] Erythrocytes (RBC) 4.10 10*6/uL Normal 3.80-5.20 [facility] Comment on above: Performed By: #### H EMDF, BMP3 ####[address] [address] Granulocytes/100 WBC (Bld) 57.2 % Normal 40.0-80.0 [facility] Comment on above: Performed By: #### H EMDF, BMP3 ####[address] [address] Hematocrit (HCT) 40.2 % Normal 35.0-47.0 [facility] Comment on above: Performed By: #### H EMDF, BMP3 ####[address] [address] Hemoglobin mass conc (Bld) 13.3 g/dL Normal 11.7-16.0 [facility] Comment on above: Performed By: #### H EMDF, BMP3 ####[address] [address] Lymphocytes 2.5 10*3/uL Normal 1.0-4.3 [facility] Comment on above: Performed By: #### H EMDF, BMP3 ####[address] [address] Lymphocytes/100 leukocytes 27.6 % Normal 20.0-40.0 [facility] Comment on above: Performed By: #### H EMDF, BMP3 ####[address] [address] MCH 32.5 pg Normal 26.0-34.0 [facility] Comment on above: Performed By: #### H EMDF, BMP3 ####[address] [address] MCHC mass conc (RBC) 33.0 % Normal 32.0-36.0 [facility] Comment on above: Performed By: #### H GREY BMP3 ####[address] [address] MCV 98.2 fL High 79.0-98.0 [facility] Comment on above: Performed By: #### H GREY BMP3 ####[address] [address] Monocytes 0.9 10*3/uL High 0.0-0.8 [facility] Comment on above: Performed By: #### H GREY BMP3 ####[address] [address] Monocytes/100 leukocytes 9.9 % Normal 2.0-10.0 [facility] Comment on above: Performed By: #### H GREY BMP3 ####[address] [address] Neutrophils 5.2 10*3/uL Normal 1.8-7.0 [facility] Comment on above: Performed By: #### H GREY BMP3 ####[address] [address] Platelet mean volume (PMV) 8.8 fL Normal 7.4-10.4 [facility] Comment on above: Performed By: #### H GREY BMP3 ####[address] [address] Platelets 362 10*3/uL Normal 140-440 [facility] Comment on above: Performed By: #### H GREY BMP3 ####[address] [address] WBC (Leukocytes) 9.1 10*3/uL Normal 3.6-10.7 [facility] Comment on above: Performed By: #### H GREY BMP3 ####[address] [address] Ethanol Serum/Plasmaon 04-30 Ethanol-Serum/Plasma < 0.010 Normal 0.000-0.010 [facility] Comment on above: Result Comment: NOTE : This result is for medical treatment only. Analysis performed using non-forensic procedures. Performed By: #### H EMDF, CMP3, QWAL, ETOH4 ####[facility] [employer] [id number] [place], [place] HCG,Urine Qualon 04-30-2018 HCG.beta subunit ( test) Ql (U) Negative Normal Negative [facility] Comment on above: Result Comment: Preg ismael is the most common reason for HCG in urine, althoughchoriocarcinoma, hydatidiform mole, and certain nontropho-blastic malignancies also result in detectable urinary HCGlevels. Sensitivity = 20mIU/mL. Performed By: #### U AMAC, DRGA4, HCGUR ####[id number] [place], [place] Comp Metabolic Panelon 04-29 Alanine aminotransferase (ALT) 26 U/L Normal 13-69 [facility] Comment on above: Performed By: #### H EMDF, CMP3, QWAL, ETOH4 ####[facility] [employer] [id number] [place] Alkaline phosphatase (ALP) 65 U/L Normal 38-126 [facility] Comment on above: Performed By: #### H EMDF, CMP3, QWAL, ETOH4 ####[facility] [employer] [id number] [place], [place] Anion gap 10 Normal [facility] Comment on above: Performed By: #### H EMDF, CMP3, QWAL, ETOH4 ####[facility] [employer] [id number] [place], [place] Aspartate aminotransferase (AST) 23 U/L Normal 15-46 [facility] Comment on above: Performed By: #### H EMDF, CMP3, QWAL, ETOH4 ####[facility] [employer] [id number] [place], [place] Calcium 9.1 mg/dL Normal 8.4-10.2 [facility] Comment on above: Performed By: #### H EMDF, CMP3, QWAL, ETOH4 ####[id number] [place], [place] CO2 24 mmol/L Normal 22-30 [facility] Comment on above: Performed By: #### H EMDF, CMP3, QWAL, ETOH4 ####[id number] [place], [place] Glucose mass conc 144 mg/dL High 70-100 [facility] Comment on above: Performed By: #### H EMDF, CMP3, QWAL, ETOH4 ####[id number] [place], [place] Protein 7.2 g/dL Normal 6.3-8.2 [facility] Comment on above: Performed By: #### H EMDF, CMP3, QWAL, ETOH4 ####[address] Urea nitrogen 14 mg/dL Normal 7-[address] [facility] Comment on above: Performed By: #### H EMDF, CMP3, QWAL, ETOH4 ####[address] Bilirubin (total) 0.3 mg/dL Normal 0.2-1.3 [facility] Comment on above: Performed By: #### H EMDF, CMP3, QWAL, ETOH4 ####[address] [place], [place] Creatinine 0.74 mg/dL Normal 0.52-1.25 [facility] Comment on above: Performed By: #### H EMDF, CMP3, QWAL, ETOH4 ####[address] [place] eGFR (black) mL/min/{1.73_m2} Normal >60 [facility] Comment on above: Performed By: #### H EMDF, CMP3, QWAL, ETOH4 ####[address] [place] eGFR (non-black) mL/min/{1.73_m2} Normal >60 [facility] Comment on above: Result Comment: Sour ce- MDRD equation with creatinine calibration to IDMS(NKDEP) eGFR not recommended for drug dose adjustment Performed By: #### H EMDF, CMP3, QWAL, ETOH4 ####[facility] [place], [place] Albumin 4.4 g/dL Normal 3.5-5.0 [facility] Comment on above: Performed By: #### H EMDF, CMP3, QWAL, ETOH4 ####[address] [place], [place] Chloride 106 mmol/L Normal 98-107 [facility] Comment on above: Performed By: #### H EMDF, CMP3, QWAL, ETOH4 ####[address] [place], [place] Potassium molar conc 4.4 mmol/L Normal 3.5-5.1 [facility] Comment on above: Performed By: #### H EMDF, CMP3, QWAL, ETOH4 ####[id number] [place], [place] Sodium 141 mmol/L Normal 137-145 [facility] Comment on above: Performed By: #### H EMDF, CMP3, QWAL, ETOH4 ####[facility] [place], [place] Drugs of Abuseon 04-29-2018 Cocaine, Ur Negative Normal [facility] Comment on above: Performed By: #### U AMAC, DRGA4, HCGUR ####[id number] [place], [place] Phencyclidine (PCP), Ur Negative Normal S [facility] Comment on above: Result Comment: The [...] Performed By: #### U AMAC, DRGA4, HCGUR ####[id number] [place], [place] Methadone, Ur Negative Normal [facility] Comment on above: Performed By: #### U AMAC, DRGA4, HCGUR ####[address] Opiates, Ur Negative Normal [facility] Comment on above: Performed By: #### U AMAC, DRGA4, HCGUR ####[address] Benzodiazepines, Ur Negative Normal [facility] Comment on above: Performed By: #### U AMAC, DRGA4, HCGUR ####[address] Amphetamines, Ur Negative Normal [facility] Comment on above: Performed By: #### U AMAC, DRGA4, HCGUR ####[address] Barbiturates, Ur Negative Normal [facility] Comment on above: Performed By: #### U AMAC, DRGA4, HCGUR ####[address] Oxycodone/Oxymorphine,U r Negative Normal [facility] Comment on above: Performed By: #### U AMAC, DRGA4, HCGUR ####[address] Hemogram w/ Autodiffon 04-29 Abs Baso Cnt 0.1 10*3/uL Normal 0.0-0.[address] [facility] Comment on above: Performed By: #### H EMDF, CMP3, QWAL, ETOH4 ####[address] [place] Basophils/100 WBC Auto (Bld) 1.1 % Normal 0.0-2.0 [facility] Comment on above: Performed By: #### H EMDF, CMP3, QWAL, ETOH4 ####[id number] [place], [place] Eosinophils 0.3 10*3/uL Normal 0.0-0.5 [facility] Comment on above: Performed By: #### H EMDF, CMP3, QWAL, ETOH4 ####[address] Eosinophils/100 leukocytes 3.3 % Normal 1.0-6.0 [facility] Comment on above: Performed By: #### H EMDF, CMP3, QWAL, ETOH4 ####[address] Erythrocyte distribution width Auto Ratio (RBC) 14.8 % High 11.5-14.5 [facility] Comment on above: Performed By: #### H EMDF, CMP3, QWAL, ETOH4 ####[address] Erythrocytes (RBC) 4.26 10*6/uL Normal 3.80-5.20 [facility] Comment on above: Performed By: #### H EMDF, CMP3, QWAL, ETOH4 ####[address] Granulocytes/100 WBC (Bld) 54.6 % Normal 40.0-80.0 [facility] Comment on above: Performed By: #### H EMDF, CMP3, QWAL, ETOH4 ####[address] Hematocrit (HCT) 42.5 % Normal 35.0-47.0 [facility] Comment on above: Performed By: #### H EMDF, CMP3, QWAL, ETOH4 ####[address] Hemoglobin mass conc (Bld) 14.1 g/dL Normal 11.7-16.0 [facility] Comment on above: Performed By: #### H EMDF, CMP3, QWAL, ETOH4 ####[address] Lymphocytes 3.1 10*3/uL Normal 1.0-4.3 [facility] Comment on above: Performed By: #### H EMDF, CMP3, QWAL, ETOH4 ####[address] Lymphocytes/100 leukocytes 32.8 % Normal 20.0-40.0 [facility] Comment on above: Performed By: #### H EMDF, CMP3, QWAL, ETOH4 ####[address] MCH 33.1 pg Normal 26.0-34.0 [facility] Comment on above: Performed By: #### H EMDF, CMP3, QWAL, ETOH4 ####[address] MCHC mass conc (RBC) 33.2 % Normal 32.0-36.0 [facility] Comment on above: Performed By: #### H EMDF, CMP3, QWAL, ETOH4 ####[address] MCV 99.8 fL High 79.0-98.0 [facility] Comment on above: Performed By: #### H EMDF, CMP3, QWAL, ETOH4 ####[address] Monocytes 0.8 10*3/uL Normal 0.0-0.8 [facility] Comment on above: Performed By: #### H EMDF, CMP3, QWAL, ETOH4 ####[address] Monocytes/100 leukocytes 8.2 % Normal 2.0-10.0 [facility] Comment on above: Performed By: #### H EMDF, CMP3, QWAL, ETOH4 ####[address] [place] Neutrophils 5.2 10*3/uL Normal 1.8-7.0 [facility] Comment on above: Performed By: #### H EMDF, CMP3, QWAL, ETOH4 ####[address] [place], [place] Platelet mean volume (PMV) 8.5 fL Normal 7.4-10.4 [facility] Comment on above: Performed By: #### H EMDF, CMP3, QWAL, ETOH4 ####[address] [place], [place] Platelets 380 10*3/uL Normal 140-440 [facility] Comment on above: Performed By: #### H EMDF, CMP3, QWAL, ETOH4 ####[address] [place] WBC (Leukocytes) 9.6 10*3/uL Normal 3.6-10.7 [facility] Comment on above: Performed By: #### H EMDF, CMP3, QWAL, ETOH4 ####[address] [place], [place] Urinalysis,Macroon 8 Bilirubin (direct) Negative Normal Negative [facility] Comment on above: Performed By: #### U AMAC, DRGA4, HCGUR ####[address] [place], [place] Ketone,Urine Negative Normal Negative [facility] Comment on above: Performed By: #### U AMAC, DRGA4, HCGUR ####[address] [place], [place] Occult Blood,Ur Negative Normal Negative [facility] Comment on above: Performed By: #### U AMAC, DRGA4, HCGUR ####[address] [place], [place] Specific [place],Urine 1.015 Normal 1.005-1.030 [facility] Comment on above: Performed By: #### U AMAC, DRGA4, HCGUR ####[address] [place], [place] Total Protein,Urine Negative Normal Negative [facility] Comment on above: Performed By: #### U AMAC, DRGA4, HCGUR ####[address] [place], [place] Urine, appearance clear Normal Clear [facility] Comment on above: Performed By: #### U AMAC, DRGA4, HCGUR ####[address] [place], [place] Urine, color yellow Normal Lt. Yellow [facility] Comment on above: Performed By: #### U AMAC, DRGA4, HCGUR ####[id number] [place], [place] Urine, glucose presence NORM Normal Negative [facility] Comment on above: Performed By: #### U AMAC, DRGA4, HCGUR ####[address] [place], [place] Urine, nitrite presence Negative Normal Negative [facility] Comment on above: Performed By: #### U AMAC, DRGA4, HCGUR ####[address] [place], [place] Urine, pH 5.0 Normal 5.0-8.0 [facility] Comment on above: Performed By: #### U AMAC, DRGA4, HCGUR ####[address] [place], [place] Urine, urobilinogen NORM Normal 0-1 [facility] Comment on above: Performed By: #### U AMAC, DRGA4, HCGUR ####[id number] [place], [place] WBC (Leukocytes) Negative Normal Negative [facility] Comment on above: Performed By: #### U AMAC, DRGA4, HCGUR ####[id number] [place], [place] hCG Qual Pregon 04-29-2018 hCG Qual Preg QUESTIONABLE Abnormal [facility] Comment on above: Result Comment: REF RANGE:Negative .... < 3Questionable Rpt 48-72 HrPositive ..... > 10 Performed By: #### H EMDF, CMP3, QWAL, ETOH4 ####[facility] [employer] [id number] [place] [address] Vital Signs Date Time Vital Sign Value Performing Clinician Facility 03-06-2025 11:36-0400 Heart rate 79 /min TIFFANY HANSEN DO [address] [place] [address] 03-06-2025 11:36-0400 Respiratory rate 20 /min TIFFANY JADE DO [facility] 03-06-2025 11:35-0400 Body temperature 98.6 [degF] TIFFANY JADE DO [facility] 03-06-2025 11:35-0400 Diastolic Blood Pressure Non-Invasive 63 mm[Hg] TIFFANY HANSEN DO [facility] 03-06-2025 11:35-0400 Heart rate 82 /min TIFFANY JADE DO [facility] 03-06-2025 11:35-0400 Reason For Taking VItal Signs TIFFANY JADE DO [facility] 03-06-2025 11:35-0400 Respiratory rate 20 /min TIFFANY HANSEN DO [facility] 03-06-2025 11:35-0400 Systolic Blood Pressure Non-Invasive 90 mm[Hg] TIFFANY HANSEN DO [facility] 03-06-2025 08:04-0400 Heart rate 74 /min TIFFANY PABONERLY DO [facility] 03-06-2025 06:48-0400 Body temperature 98.06 [degF] TIFFANY JADE DO [facility] 03-06-2025 06:48-0400 Diastolic Blood Pressure Non-Invasive 75 mm[Hg] TIFFANY HANSEN DO [facility] 03-06-2025 06:48-0400 Heart rate 50 /min TIFFANY HANSEN DO [facility] 03-06-2025 06:48-0400 Reason For Taking VItal Signs TIFFANY HANSEN DO [facility] 03-06-2025 06:48-0400 Respiratory rate 20 /min TIFFANY HANSEN DO [facility] 03-06-2025 06:48-0400 Systolic Blood Pressure Non-Invasive 94 mm[Hg] TIFFANY HANSEN DO [facility] 03-06-2025 03:17-0400 Body temperature 97.88 [degF] TIFFANY HANSEN DO [facility] 03-06-2025 03:17-0400 Diastolic Blood Pressure Non-Invasive 61 mm[Hg] TIFFANY HANSEN DO [facility] 03-06-2025 03:17-0400 Reason For Taking VItal Signs TIFFANY HANSEN DO [facility] 03-06-2025 03:17-0400 Systolic Blood Pressure Non-Invasive 99 mm[Hg] TIFFANY HANSEN DO [facility] 03-05-2025 16:10-0400 Heart rate 79 /min TIFFANY HANSEN DO [facility] 03-05-2025 11:26-0400 Heart rate 68 /min TIFFANY HANSEN DO [facility] 03-05-2025 08:39-0400 Heart rate 75 /min TIFFANY JADE DO [facility] 03-05-2025 06:20-0400 Heart rate 81 /min TIFFANY JADE DO [facility] 03-04-2025 16:31-0400 Heart rate 90 /min TIFFANY JADE DO [facility] 03-04-2025 07:59-0400 Body height 165.1 cm TIFFANY JADE DO [address] [place] [address] 03-04-2025 07:59-0400 Body temperature 98.06 [degF] TIFFANY JADE DO [facility] 03-04-2025 07:59-0400 Body weight 58.3 kg TIFFANY JADE DO [facility] 03-04-2025 07:59-0400 Body weight 21.39 kg/m2 TIFFANY JADE DO [facility] 03-04-2025 05:51-0400 Body weight 58.3 kg TIFFANY JADE DO [facility] 12-14-2024 06:46-0500 Body height 162.[address] MILO ESTEBAN MD [facility] 12-14-2024 06:46-0500 Body temperature 97.88 [degF] DR MILO ESTEBAN MD [facility] 12-14-2024 06:46-0500 Body weight 50.[address] MILO ESTEBAN MD [facility] 12-14-2024 06:46-0500 Diastolic Blood Pressure Non-Invasive 82 mm[Hg] DR MILO ESTEBAN MD [facility] 12-14-2024 06:46-0500 Heart rate 77 /min DR MILO ESTEBAN MD [facility] 12-14-2024 06:46-0500 Respiratory rate 16 /min DR MILO ESTEBAN MD [facility] 12-14-2024 06:46-0500 Systolic Blood Pressure Non-Invasive 122 mm[Hg] DR MILO ESTEBAN MD [facility] 05-09-2023 13:16-0400 Body height 160 cm Mely Kendrick PA-C Work Phone: [facility] 05-09-2023 13:16-0400 Body weight 57.15 kg Mely Kendrick PA-C Work Phone: [facility] 05-09-2023 13:16-0400 Diastolic blood pressure 90 mm[Hg] Mely Kendrick PA-C Work Phone: [facility] 05-09-2023 13:16-0400 Heart rate 83 /min Mely Kendrick PA-C Work Phone: [facility] 05-09-2023 13:16-0400 Respiratory rate 18 /min Mely Kendrick PA-C Work Phone: [facility] 05-09-2023 13:16-0400 SaO2% (BldA) [Mass fraction] 94 % Mely Kendrick PA-C Work Phone: [facility] 05-09-2023 13:16-0400 Systolic blood pressure 140 mm[Hg] Mely Kendrick PA-C Work Phone: [facility] 05-08-2023 12:01-0400 Body weight 56.25 kg 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 Phone: [facility] 05-08-2023 12:01-0400 Diastolic blood pressure 88 mm[Hg] 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 Phone: [facility] 05-08-2023 12:01-0400 Heart rate 90 /min 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 Phone: [facility] 05-08-2023 12:01-0400 Respiratory rate 20 /min 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 Phone: [facility] 05-08-2023 12:01-0400 Systolic blood pressure 134 mm[Hg] 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 Phone: [facility] 01-07-2023 21:11-0500 Body temperature 98.6 [degF] Armando Benavides DO Work Phone: [employer] 01-07-2023 21:11-0500 Heart rate 76 /min Armando Wynncordelljules POOLE Work Phone: [employer] 01-07-2023 21:11-0500 Respiratory rate 18 /min Armando Wynngabriel Work Phone: [employer] 01-07-2023 21:11-0500 SaO2% (BldA) [Mass fraction] 94 % Armando Wynncordelljules POOLE Work Phone: [employer] 01-07-2023 20:00-0500 Diastolic blood pressure 84 mm[Hg] Armando Wynncordelljules POOLE Work Phone: [employer] 01-07-2023 20:00-0500 Systolic blood pressure 161 mm[Hg] Armando Benavieds Work Phone: [employer] 01-07-2023 17:39-0500 Body height 165.1 cm Armando Wynngabriel Work Phone: [employer] 01-07-2023 17:39-0500 Body mass index (BMI) [Ratio] 21.63 kg/m2 Armando Wynngabriel Work Phone: [employer] 01-07-2023 17:39-0500 Body weight 58.97 kg Armando Kingsleygabriel Work Phone: [facility] [facility] 01-07-2023 12:34-0500 Body temperature 98.2 [degF] Dr. Ulises Hermosillo Work Phone: 7(813)[phone] [place] [address] 01-07-2023 12:34-0500 Diastolic blood pressure 55 mm[Hg] Dr. Ulises Hermosillo Work Phone: 2(853)338-118945 [place] [address] 01-07-2023 12:34-0500 Heart rate 79 /min Dr. Ulises Hermosillo Work Phone: 5(335)813-888945 [place] [address] 01-07-2023 12:34-0500 Respiratory rate 18 /min Dr. Ulises Hermosillo Work Phone: 9(327)791-920445 [place] [address] 01-07-2023 12:34-0500 SaO2% (BldA) [Mass fraction] 90 % Dr. Ulises Hermosillo Work Phone: 2(374)395-342345 [place] [address] 01-07-2023 12:34-0500 Systolic blood pressure 121 mm[Hg] Dr. Ulises Hermosillo Work Phone: 5(538)115-709045 [place] [address] 01-07-2023 09:58-0500 Inhaled oxygen flow rate 2 L/min Dr. Ulises Hermosillo Work Phone: 1(877)462-002045 [place] [address] 01-07-2023 06:00-0500 Body mass index (BMI) [Ratio] 21.9 kg/m2 Dr. Ulises Hermosillo Work Phone: 5(928)423-997345 [place] [address] 01-07-2023 06:00-0500 Body weight 59.[address] Ulises Hermosillo Work Phone: 9(552)761-068745 [place] [address] 01-03-2023 10:39-0500 Body height 165.[address] Ulises Hermosillo Work Phone: 2(424)758-091445 [place] [address] 01-02-2023 21:43-0500 Body temperature 98.4 [degF] Dr. Ulises Hermosillo Work Phone: 8(636)255-461845 [place] [address] 01-02-2023 21:43-0500 Diastolic blood pressure 87 mm[Hg] Dr. Ulises Hermosillo Work Phone: [facility] 01-02-2023 21:43-0500 Heart rate 96 /min Dr. Ulises Hermosillo Work Phone: [facility] 01-02-2023 21:43-0500 Inhaled oxygen flow rate 2 L/min Dr. Ulises Hermosillo Work Phone: [facility] 01-02-2023 21:43-0500 Respiratory rate 24 /min Dr. Ulises Hermosillo Work Phone: [facility] 01-02-2023 21:43-0500 SaO2% (BldA) [Mass fraction] 96 % Dr. Ulises Hermosillo Work Phone: [facility] 01-02-2023 21:43-0500 Systolic blood pressure 118 mm[Hg] Dr. Ulises Hermosillo Work Phone: [facility] 01-02-2023 17:54-0500 Body height 165.[address] Ulises Hermosillo Work Phone: [facility] 01-02-2023 17:54-0500 Body mass index (BMI) [Ratio] 21.8 kg/m2 Dr. Ulises Hermosillo Work Phone: [facility] 01-02-2023 17:54-0500 Body weight 59.[address] 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 Phone: [facility] 01-01-2023 14:08-0500 Systolic blood pressure 170 mm[Hg] 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 Phone: [facility] 01-01-2023 13:09-0500 Body weight 58.06 kg 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 Phone: [facility] 01-01-2023 13:09-0500 Respiratory rate 22 /min 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 Phone: [facility] 01-01-2023 13:09-0500 SaO2% (BldA) [Mass fraction] 97 % 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 Phone: [facility] 12-23-2022 16:29-0500 Diastolic Blood Pressure Non-Invasive [address] JOSE ROBERTO COMBS MD [facility] 12-23-2022 16:29-0500 Heart rate 84 /min DR JOSE ROBERTO COMBS MD [facility] 12-23-2022 16:29-0500 Respiratory rate 16 /min DR JOSE ROBERTO COMBS MD [facility] 12-23-2022 16:29-0500 Systolic Blood Pressure Non-Invasive [address] JOSE ROBERTO COMBS MD [facility] 12-23-2022 14:43-0500 Diastolic Blood Pressure Non-Invasive [address] JOSE ROBERTO COMBS MD [facility] 12-23-2022 14:43-0500 Heart rate 82 /min DR JOSE ROBERTO COMBS MD [facility] 12-23-2022 14:43-0500 Respiratory rate 18 /min DR JOSE ROBERTO COMBS MD [facility] 12-23-2022 14:43-0500 Systolic Blood Pressure Non-Invasive [address] JOSE ROBERTO COMBS MD [facility] 12-23-2022 13:50-0500 Body temperature 96.98 [degF] DR JOSE ROBERTO COMBS MD [facility] 12-23-2022 13:50-0500 Diastolic Blood Pressure Non-Invasive [address] JOSE ROBERTO COMBS MD [facility] 12-23-2022 13:50-0500 Heart rate 89 /min DR JOSE ROBERTO COMBS MD [facility] 12-23-2022 13:50-0500 Respiratory rate 18 /min DR JOSE ROBERTO COMBS MD [facility] 12-23-2022 13:50-0500 Systolic Blood Pressure Non-Invasive [address] JOSE ROBERTO COMBS MD [facility] 11-26-2022 12:48-0500 Body weight 57.61 kg Isauro Asher MD Work Phone: [facility] 11-26-2022 12:48-0500 Diastolic blood pressure 84 mm[Hg] Isauro Asher MD Work Phone: [facility] 11-26-2022 12:48-0500 Heart rate 98 /min Isauro Asher MD Work Phone: [facility] 11-26-2022 12:48-0500 Respiratory rate 20 /min Isauro Asher MD Work Phone: [facility] 11-26-2022 12:48-0500 SaO2% (BldA) [Mass fraction] 99 % Isauro Asher MD Work Phone: [facility] 11-26-2022 12:48-0500 Systolic blood pressure 120 mm[Hg] Isauro Asher MD Work Phone: [facility] 10-26-2022 19:30-0500 Diastolic Blood Pressure Non-Invasive 93 1 JEOVANY TAYLOR MD [facility] 10-26-2022 19:30-0500 Heart rate 97 /min JEOVANY TAYLOR MD [facility] 10-26-2022 19:30-0500 Respiratory rate 20 /min JEOVANY TAYLOR MD [facility] 10-26-2022 19:30-0500 Systolic Blood Pressure Non-Invasive 167 1 JEOVANY TAYLOR MD [facility] 10-26-2022 19:00-0500 Diastolic Blood Pressure Non-Invasive 92 1 JEOVANY TAYLOR MD [facility] 10-26-2022 19:00-0500 Heart rate 93 /min JEOVANY TAYLOR MD [facility] 10-26-2022 19:00-0500 Respiratory rate 18 /min JEOVANY TAYLOR MD [facility] 10-26-2022 18:37-0500 Heart rate 94 /min JEOVANY TAYLOR MD [facility] 10-26-2022 18:37-0500 Respiratory rate 22 /min JEOVANY TAYLOR MD [facility] 10-26-2022 18:31-0500 Diastolic Blood Pressure Non-Invasive 82 1 JEOVANY TAYLOR MD [facility] 10-26-2022 18:31-0500 Systolic Blood Pressure Non-Invasive 153 1 JEOVANY TAYLOR MD [facility] 10-26-2022 16:25-0500 Body temperature 96.8 [degF] JEOVANY TAYLOR MD [facility] 10-02-2022 10:02-0500 Body height 162.1 cm Doron Self DO Work Phone: [facility] 10-02-2022 10:02-0500 Body weight 58.97 kg Doron Self DO Work Phone: [facility] 10-02-2022 10:02-0500 Diastolic blood pressure 87 mm[Hg] Doron Self DO Work Phone: [facility] 10-02-2022 10:02-0500 Heart rate 86 /min Doron Self DO Work Phone: [facility] 10-02-2022 10:02-0500 SaO2% (BldA) [Mass fraction] 96 % Doron Self DO Work Phone: [facility] 10-02-2022 10:02-0500 Systolic blood pressure 155 mm[Hg] Doron Self DO Work Phone: [facility] 09-05-2022 16:28-0400 Body weight 59.88 kg Ulises Hermosillo MD Work Phone: [facility] 09-05-2022 16:28-0400 Diastolic blood pressure 82 mm[Hg] Ulises Hermosillo MD Work Phone: [facility] 09-05-2022 16:28-0400 Heart rate 95 /min Ulises Hermosillo MD Work Phone: [facility] 09-05-2022 16:28-0400 SaO2% (BldA) [Mass fraction] 98 % Ulises Hermosillo MD Work Phone: [facility] 09-05-2022 16:28-0400 Systolic blood pressure 132 mm[Hg] Ulises Hermosillo MD Work Phone: [facility] 08-31-2022 13:22-0400 Body weight 58.51 kg 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 Phone: [facility] 08-31-2022 13:22-0400 Diastolic blood pressure 82 mm[Hg] 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 Phone: [facility] 08-31-2022 13:22-0400 Heart rate 86 /min 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 Phone: [facility] 08-31-2022 13:22-0400 Respiratory rate 18 /min 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 Phone: [facility] 08-31-2022 13:22-0400 Systolic blood pressure 125 mm[Hg] 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 Phone: [facility] 07-31-2022 14:17-0400 Body weight 60.33 kg Nicole Kenny APRN.HOME ENERGY CONSULTANT Work Phone: [facility] 07-31-2022 14:17-0400 Diastolic blood pressure 82 mm[Hg] Nicole Kenny APRN.HOME ENERGY CONSULTANT Work Phone: [facility] 07-31-2022 14:17-0400 Heart rate 89 /min Nicole Kenny APRN.HOME ENERGY CONSULTANT Work Phone: [facility] 07-31-2022 14:17-0400 SaO2% (BldA) [Mass fraction] 98 % Nicole Kenny APRN.HOME ENERGY CONSULTANT Work Phone: [facility] 07-31-2022 14:17-0400 Systolic blood pressure 148 mm[Hg] Nicole Kenny APRN.HOME ENERGY CONSULTANT Work Phone: [facility] 06-06-2022 10:11-0400 Body height 162.1 cm Margaret Kasper MD Work Phone: [facility] 06-06-2022 10:11-0400 Body weight 58 kg Margaret Kasper MD Work Phone: [facility] 06-06-2022 10:11-0400 Diastolic blood pressure 84 mm[Hg] Margaret Kasper MD Work Phone: [facility] 06-06-2022 10:11-0400 Heart rate 77 /min Margaret Kasper MD Work Phone: [facility] 06-06-2022 10:11-0400 SaO2% (BldA) [Mass fraction] 96 % Margaret Kasper MD Work Phone: [facility] 06-06-2022 10:11-0400 Systolic blood pressure 173 mm[Hg] Margaret Kasper MD Work Phone: [facility] 05-11-2022 13:40-0400 Body weight 58.06 kg Ulises Hermosillo MD Work Phone: [facility] 05-11-2022 13:40-0400 Diastolic blood pressure 78 mm[Hg] Ulises Hermosillo MD Work Phone: [facility] 05-11-2022 13:40-0400 Heart rate 99 /min Ulises Hermosillo MD Work Phone: [facility] 05-11-2022 13:40-0400 Respiratory rate 24 /min Ulises Hermosillo MD Work Phone: [facility] 05-11-2022 13:40-0400 SaO2% (BldA) [Mass fraction] 95 % Ulises Hermosillo MD Work Phone: [facility] 05-11-2022 13:40-0400 Systolic blood pressure 118 mm[Hg] Ulises Hermosillo MD Work Phone: [facility] 05-05-2022 10:56-0400 Respiratory rate 16 /min DR BETINA GODDARD MD [facility] 05-05-2022 10:48-0400 Body temperature 97.7 [degF] DR BETINA GODDARD MD [facility] 05-05-2022 10:48-0400 Diastolic blood pressure 75 mm[Hg] DR BETINA GODDARD MD [facility] 05-05-2022 10:48-0400 Heart rate 76 /min DR BETINA GODDARD MD [facility] 05-05-2022 10:48-0400 Reason For Taking VItal Signs DR BETINA GODDARD MD [facility] 05-05-2022 10:48-0400 Respiratory rate 16 /min DR BETINA GODDARD MD [facility] 05-05-2022 10:48-0400 Systolic blood pressure 116 mm[Hg] DR BETINA GODDARD MD [facility] 05-05-2022 07:33-0400 Body temperature 97.88 [degF] DR BETINA GODDARD MD [address] [place] [address] 05-05-2022 07:33-0400 Diastolic blood pressure 71 mm[Hg] DR BETINA GODDARD MD [address] [place] [address] 05-05-2022 07:33-0400 Heart rate 71 /min DR BETINA GODDARD MD [address] [place] [address] 05-05-2022 07:33-0400 Mean blood pressure 88 mm[Hg] DR BETINA GODDARD MD [facility] 05-05-2022 07:33-0400 Reason For Taking VItal Signs DR BETINA GODDARD MD [facility] 05-05-2022 07:33-0400 Respiratory rate 16 /min DR BETINA GODDARD MD [facility] 05-05-2022 07:33-0400 Systolic blood pressure 122 mm[Hg] DR BETINA GODDARD MD [facility] 05-05-2022 06:43-0400 Heart rate 77 /min DR BETINA GODDARD MD [facility] 05-04-2022 23:22-0400 Diastolic blood pressure 64 mm[Hg] DR BETINA GODDARD MD [facility] 05-04-2022 23:22-0400 Systolic blood pressure 124 mm[Hg] DR BETINA GODDARD MD [facility] 05-04-2022 20:59-0400 Body temperature 98.42 [degF] DR BETINA GODDARD MD [address] [place] [address] 05-04-2022 20:59-0400 Heart rate 73 /min DR BETINA GODDARD MD [address] [place] [address] 05-04-2022 14:47-0400 Mean blood pressure 92 mm[Hg] DR BETINA GODDARD MD [facility] 05-04-2022 14:47-0400 Reason For Taking VItal Signs DR BETINA GODDARD MD [facility] 05-04-2022 01:04-0400 Heart rate 81 /min DR BETINA GODDARD MD [facility] 05-04-2022 01:04-0400 Mean blood pressure 85 mm[Hg] DR BETINA GODDARD MD [facility] 05-03-2022 19:06-0400 Heart rate 94 /min DR BETINA GODDARD MD [facility] 05-03-2022 14:51-0400 Heart rate 82 /min DR BETINA GODDARD MD [facility] 05-02-2022 09:53-0400 Body height 165.[address] BETINA GODDARD MD [facility] 05-02-2022 09:53-0400 Body weight [address] BETINA GODDARD MD [facility] 05-02-2022 09:53-0400 Body weight 22.01 kg/m2 DR BETINA GODDARD MD [facility] 05-02-2022 06:28-0400 Diastolic blood pressure 86 mm[Hg] EMMANUEL FROMMELT DO [facility] 05-02-2022 06:28-0400 Heart rate 92 /min EMMANUEL FROMMELT DO [facility] 05-02-2022 06:28-0400 Respiratory rate 20 /min EMMANUEL FROMMELT DO [facility] 05-02-2022 06:28-0400 Systolic blood pressure 131 mm[Hg] EMMANUEL FROMMELT DO [facility] 05-02-2022 04:25-0400 Diastolic blood pressure 82 mm[Hg] EMMANUEL FROMMELT DO [facility] 05-02-2022 04:25-0400 Heart rate 95 /min EMMANUEL FROMMELT DO [facility] 05-02-2022 04:25-0400 Mean blood pressure 98 mm[Hg] EMMANUEL FROMMELT DO [facility] 05-02-2022 04:25-0400 Respiratory rate 22 /min EMMANUEL FROMMELT DO [facility] 05-02-2022 04:25-0400 Systolic blood pressure 129 mm[Hg] EMMANUEL FROMMELT DO [facility] 05-02-2022 03:42-0400 Diastolic blood pressure 84 mm[Hg] EMMANUEL FROMMELT DO [facility] 05-02-2022 03:42-0400 Heart rate 98 /min EMMANUEL THOMPSONT DO [facility] 05-02-2022 03:42-0400 Mean blood pressure 99 mm[Hg] EMMANUEL THOMPSONT DO [facility] 05-02-2022 03:42-0400 Respiratory rate 24 /min EMMANUEL THOMPSONT DO [facility] 05-02-2022 03:42-0400 Systolic blood pressure 130 mm[Hg] EMMANUEL SHAIKHMELT DO [facility] 05-02-2022 03:12-0400 Body temperature 98.24 [degF] EMMANUEL FROMMELT DO [facility] 05-02-2022 03:12-0400 Heart rate 130 /min EMMANUEL FROMMELT DO [facility] 05-02-2022 03:11-0400 Heart rate 124 /min EMMANUEL KILLIAN DO [facility] 04-30-2022 15:40-0400 Body weight 57.61 kg Tracy Ramires APRN.HOME ENERGY CONSULTANT Work Phone: [facility] 04-30-2022 15:40-0400 Diastolic blood pressure 75 mm[Hg] Tracy Ramires TEACHER ADULT EDUCATION.HOME ENERGY CONSULTANT Work Phone: [facility] 04-30-2022 15:40-0400 Heart rate 83 /min Tracy Ramires APRN.HOME ENERGY CONSULTANT Work Phone: [facility] 04-30-2022 15:40-0400 Systolic blood pressure 138 mm[Hg] Tracy Ramires APRN.HOME ENERGY CONSULTANT Work Phone: [facility] 03-13-2022 13:59-0400 Body height 165.1 cm Nicole Kenny APRN.HOME ENERGY CONSULTANT Work Phone: [facility] 03-13-2022 13:59-0400 Body weight 60.92 kg Nicole Kenny APRN.HOME ENERGY CONSULTANT Work Phone: [facility] 03-13-2022 13:59-0400 Diastolic blood pressure 76 mm[Hg] Nicole Kenny APRN.HOME ENERGY CONSULTANT Work Phone: [facility] 03-13-2022 13:59-0400 Heart rate 81 /min Nicole Kenny APRN.HOME ENERGY CONSULTANT Work Phone: [facility] 03-13-2022 13:59-0400 SaO2% (BldA) [Mass fraction] 96 % Nicole Kenny APRN.HOME ENERGY CONSULTANT Work Phone: [facility] 03-13-2022 13:59-0400 Systolic blood pressure 157 mm[Hg] Nicole Kenny APRN.HOME ENERGY CONSULTANT Work Phone: [facility] Encounters Encounter Date Encounter Type Care Provider Facility Start: 07-13-2025 ambulatory Ulises Cervantes ty:[facility] Start: 07-09-2025 End: 07-12-2025 Emergency department patient visit ARLEN STRONG TEACHER ADULT EDUCATION-HOME ENERGY CONSULTANT Facility:[facility] Start: 07-09-2025 End: 07-12-2025 Observation ARLEN STRONG TEACHER ADULT EDUCATION-HOME ENERGY CONSULTANT [facility] Start: 06-12-2025 End: 06-15-2025 Evaluation and management of inpatient DR JAE LUCIANO MD [facility] Start: 06-12-2025 End: 06-12-2025 Emergency department patient visit BRIAN AMOS DO [facility] Start: 05-16-2025 End: 05-24-2025 Evaluation and management of inpatient GWYN FERRARO TEACHER ADULT EDUCATION-[facility] Start: 03-05-2025 ambulatory EMMA DIBEN Facility:[facility] Start: 03-04-2025 End: 03-06-2025 Emergency department patient visit DR LEAH KHAN DO Facility:[facility] Start: 03-04-2025 End: 03-06-2025 Observation TIFFANY HANSEN DO [facility] Start: 02-19-2025 ambulatory EMMA M BERNICE DO Facil ity:A Start: 02-19-2025 End: 02-20-2025 Evaluation and management of inpatient EMMA DITCHEY Facility:[facility] Start: 02-03-2025 End: 02-03-2025 ambulatory EMMA DITCHEY Facility:[facility] Start: 12-25-2024 End: 12-25-2024 ambulatory EMMA DITCHEY Facility:[facility] Start: 12-25-2024 End: 12-25-2024 Patient encounter procedure XAVIER GONZALEZ MD [facility] Start: 12-14-2024 End: 12-14-[address] MILO ESTEBAN MD Facility: Start: 12-14-2024 End: 12-14-[address] MILO ESTEBAN MD [facility] Start: 12-11-2024 End: 12-11-2024 ambulatory EMMA QUEEN Facility:[facility] Start: 12-11-2024 End: 12-11-2024 Patient encounter procedure XAVIER GONZALEZ MD [facility] Start: 10-23-2024 End: 10-27-[address] ULISES HERMOSILLO MD Facility:[facility] Start: 10-23-2024 End: 10-27-2024 Outreach Lab EMMA De La O EMBERBEN DO [facility] Start: 01-24-2024 Refill No Pcp TEACHER ADULT EDUCATION [facility] [place] Comment on above: Refill Request Start: 12-23-2023 Refill Ulises ram MD Work Phone: [facility] [place] Comment on above: Refill Request Start: 10-18-2023 Refill Ulises ram MD Work Phone: [facility] [place] Comment on above: Refill Request Start: 09-25-2023 Telephone encounter Ulises cheng MD Work Phone: [facility] [place] Comment on above: Medication Problem Start: 06-13-2023 Telephone encounter [facility] Provider Renzo silver Management Comment on above: Future Appointment Start: 06-10-2023 Refill Ulises ram MD Work Phone: [facility] [place] Comment on above: Refill Request Medication clarifica tion Start: 06-06-2023 Refill Tracymehreen Joyner y TEACHER ADULT EDUCATION.HOME ENERGY CONSULTANT Work Phone: Cardiology Comment on above: Refill Request Start: 05-28-2023 Orders Only Fifi Price er TEACHER ADULT EDUCATION.HOME ENERGY CONSULTANT Work Phone: Pulmonary Medicine Comment on above: Encounter for screen ing for lung cancer (Primary Dx); Tobacco use current Start: 05-10-2023 Telephone encounter Ulises cheng MD Work Phone: [facility] [place] Comment on above: Results Start: 05-09-2023 End: 05-09-2023 ambulatory MELY GRIFFIN Facility:[facility] Start: 05-09-2023 End: 05-09-2023 Patient encounter procedure Mely Griffin PA-C Work Phone: Pulmonary Medicine Comment on above: Stage 3 severe COPD by GOLD classification (HCC) (Primary Dx); Cigarette smoker; Lung nodules Start: 05-08-2023 End: 05-09-2023 ambulatory OLY OLDER Facility:[facility] Start: 05-08-2023 End: 05-08-2023 Subsequent hospital visit by physician Xr [facility] [place] Work Phone: Radiology Comment on above: Chronic midline low back pain with sciatica, sciatica laterality unspecified [M54.40, G89.29] Start: 05-08-2023 End: 05-08-2023 Patient encounter procedure Oly Smith TEACHER ADULT EDUCATION.HOME ENERGY CONSULTANT Work Phone: [facility] [place] Comment on above: Chronic midline low back pain with sciatica, sciatica laterality unspecified (Primary Dx); Lesion of left ear; Essential hypertension; Mixed hyperlipidemia; Chronic bronchitis, unspecified chronic bronchitis type (HCC); Recurrent major depression in partial remission (HCC); Coronary artery disease involving [place] coronary artery of [place] heart without angina pectoris Start: 04-16-2023 ambulatory Melissa Vital MA [facility]igate [facility] Comment on above: Population Health Na vigation Outreach [facility] Start: 04-02-2023 End: 04-02-2023 ambulatory DORON SELF Facility:[facility] Start: 02-26-2023 Refill Isauro Asher MD Work Phone: Pulmonary Medicine Comment on above: Refill Request Start: 01-07-2023 End: 01-07-2023 Emergency department patient visit ARMANDO BENAVIDES [facility] Start: 01-07-2023 End: 01-07-2023 Emergency department patient visit Armando Smith Kennedy POOLE Work Phone: [facility] Emergency [facility] Comment on above: Dehydration (Primary Dx) Start: 01-06-2023 Non-patient / Non-visit Dr. Amie Hermosillo Work Phone: [facility] Start: 01-05-2023 Non-patient / Non-visit Dr. Amie Hermosillo Work Phone: [facility] Start: 01-04-2023 Non-patient / Non-visit Dr. Amie Hermosillo Work Phone: [facility] Start: 01-04-2023 Non-patient / Non-visit Dr. Amie Hermosillo Work Phone: [facility] Start: 01-03-2023 Non-patient / Non-visit Dr. Amie Hermosillo Work Phone: [facility] Start: 01-02-2023 Non-patient / Non-visit Dr. Amie Hermosillo Work Phone: [facility] Start: 01-02-2023 End: 01-07-2023 Evaluation and management of inpatient Dr. Ulises Hermosillo Work Phone: [facility] Start: 01-01-2023 End: 01-02-2023 [facility] Facility:[facility] Start: 01-01-2023 End: 01-01-2023 Patient encounter procedure 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 Phone: [facility] [place] Comment on above: Alcohol withdrawal s yndrome without complication (HCC) (Primary Dx) Start: 01-01-2023 Telephone encounter Diana delarosa SEISMOGRAPH OBSERVER Work Phone: Adult Psychology Comment on above: Behavioral Health So cial Work Start: 01-01-2023 End: 01-01-2023 Subsequent hospital visit by physician Xr [facility] [place] Work Phone: Radiology Comment on above: Hemoptysis [R04.2] Start: 12-23-2022 End: 12-23-2022 Emergency department patient visit JOSE ROBERTO COMBS MD Facility:B Start: 12-23-2022 End: 12-23-2022 Emergency department patient visit DR JOSE ROBERTO COMBS MD [facility] Start: 12-14-2022 Refill Ulises ram MD Work Phone: [facility] Comment on above: Refill Request Start: 11-26-2022 End: 11-26-2022 ambulatory ISAURO ASHER Facility:[facility] Start: 11-26-2022 End: 11-26-2022 Patient encounter procedure Isauro Asher MD Work Phone: Pulmonary Medicine Comment on above: Hemoptysis (Primary Dx); Stage 3 severe COPD by GOLD classification ([facility]); Cigarette smoker Start: 10-26-2022 End: 10-26-2022 Emergency department [facility] Facility:B Start: 10-26-2022 End: 10-26-2022 Emergency department patient visit JEOVANY TAYLOR MD [facility] Start: 10-02-2022 End: 10-02-2022 Patient encounter procedure Doron Self DO Work Phone: Vascular Surgery Comment on above: PAD (peripheral daxa ry disease) ([facility]) Start: 09-21-2022 Telephone encounter Doron Self DO Work Phone: Vasculary Surgery Comment on above: Patient Question Start: 09-19-2022 Telephone encounter Doron Self DO Work Phone: Vascular Surgery Comment on above: Orders Start: 09-05-2022 End: 09-05-2022 Patient encounter procedure Ulises Hermosillo MD Work Phone: Internal Medicine [place] Comment on above: Thrush (oral) (Prima ry Dx); Prediabetes; Essential hypertension Start: 09-05-2022 ambulatory Ulises ram MD Work Phone: Internal Medicine [place] Comment on above: Mouth/Lip Problem Start: 08-31-2022 End: 08-31-2022 Patient encounter procedure Olysky Smith TEACHER ADULT EDUCATION.HOME ENERGY CONSULTANT Work Phone: Internal Medicine [place] Comment on above: Situational anxiety (Primary Dx); Allergic conjunctivitis of both eyes; Recurrent major depression in partial remission (HCC); Essential hypertension; Coronary artery disease involving [place] coronary artery of [place] heart without angina pectoris; Chronic bronchitis, unspecified chronic bronchitis type (HCC); Encounter for immunization; Mixed hyperlipidemia; Lung nodule; Screening for osteoporosis; Asymptomatic menopause Start: 08-13-2022 Telephone encounter Ulises cheng MD Work Phone: Internal Medicine [place] Comment on above: Patient Update Start: 08-02-2022 Telephone encounter Doron Self DO Work Phone: Vascular Surgery Comment on above: Appointment Start: 07-31-2022 End: 07-31-2022 Patient encounter procedure Nicole Kimimarcelle Kenny TEACHER ADULT EDUCATION.HOME ENERGY CONSULTANT Work Phone: Pulmonary Medicine Comment on above: Lung nodules (Primar y Dx); Current smoker Start: 07-26-2022 ambulatory UNKNOWN PROVIDER Facili ty:[facility] Start: 07-20-2022 Refill Ulises ram MD Work Phone: Internal Medicine [place] Comment on above: Refill Request Start: 07-13-2022 Telephone encounter Doron Self DO Work Phone: Vascular Surgery Comment on above: Appointment Start: 07-09-2022 End: 07-09-2022 ambulatory Respiratory Therapist [facility] Work Phone: Pulmonary Medicine Comment on above: Arrived Start: 07-09-2022 End: 07-09-2022 Patient encounter procedure Respiratory Therapist [facility] Work Phone: [place] [facility] Start: 07-06-2022 Telephone encounter Margaret Kasper MD Work Phone: Pulmonary Medicine Comment on above: Orders Start: 06-14-2022 Refill Ulises ram MD Work Phone: Internal Medicine [place] Comment on above: Refill Request Start: 06-06-2022 End: 06-06-2022 ambulatory Pulm Work Phone: Pulmonary Medicine Comment on above: Spirometry Start: 06-06-2022 End: 06-06-2022 Patient encounter procedure Pulm Fct Lab [facility] Work Phone: [facility] Comment on above: Asthma-COPD overlap syndrome (HCC) (Primary Dx); Wheezing; Smoking Start: 06-04-2022 Telephone encounter Ulises cheng MD Work Phone: Internal Medicine [place] Comment on above: Aerochamber spacer Start: 05-31-2022 Telephone encounter Ulises cheng MD Work Phone: Internal Medicine [place] Comment on above: Orders Start: 05-30-2022 Orders Only Nicole lang TEACHER ADULT EDUCATION.HOME ENERGY CONSULTANT Work Phone: Pulmonary Medicine Comment on above: Tobacco use disorder (Primary Dx) Smoker (Primary Dx); Encounter for screening for malignant neoplasm of lung Start: 05-28-2022 Refill Tracy kirkland TEACHER ADULT EDUCATION.HOME ENERGY CONSULTANT Work Phone: Cardiology Comment on above: Refill Request Start: 05-25-2022 Refill Ulises ram MD Work Phone: Internal Medicine [place] Comment on above: Refill Request Start: 05-23-2022 Telephone encounter Tracy Ramires TEACHER ADULT EDUCATION.HOME ENERGY CONSULTANT Work Phone: Cardiology Comment on above: Results Start: 05-21-2022 End: 05-21-2022 Patient encounter procedure Echocardiogram [facility] Work Phone: Cardiology Comment on above: DIAZ (dyspnea on exer tion) Start: 05-11-2022 End: 05-11-2022 Patient encounter procedure Ulises Hermosillo MD Work Phone: Internal Medicine [place] Comment on above: Chronic bronchitis, unspecified chronic bronchitis type (HCC) (Primary Dx); Recurrent major depression in partial remission (HCC); Gastroesophageal reflux disease, unspecified whether esophagitis present; Need for vaccination; Bipolar affective disorder, current episode mixed, current episode severity unspecified (HCC); PAD (peripheral artery disease) (HCC) Start: 05-07-2022 Refill Ulises ram MD Work Phone: Internal Medicine [place] Comment on above: Refill Request Start: 05-02-2022 End: 05-05-2022 Evaluation and management of inpatient BETINA GODDARD MD Facility:A Start: 05-02-2022 End: 05-05-2022 Evaluation and management of inpatient DR BETINA GODDARD MD [facility] Start: 05-02-2022 End: 05-02-2022 Emergency department patient visit [facility] Facility:B Start: 05-02-2022 End: 05-02-2022 Emergency department patient visit [facility] DO [facility] Start: 04-30-2022 End: 04-30-2022 Patient encounter procedure Tracy Ramires TEACHER ADULT EDUCATION.HOME ENERGY CONSULTANT Work Phone: Cardiology Comment on above: DIAZ (dyspnea on exer tion) (Primary Dx); Essential hypertension; Coronary artery disease involving [place] coronary artery of [place] heart without angina pectoris; Mixed hyperlipidemia; Smoker; Stenosis of carotid artery, unspecified laterality Start: 04-03-2022 Refill Ulises ram MD Work Phone: Internal Medicine [place] Comment on above: Refill Request Start: 03-16-2022 Refill Eri Fu APRN.HOME ENERGY CONSULTANT Work Phone: Pulmonary Medicine Comment on above: Refill Request Start: 03-13-2022 End: 03-13-2022 Patient encounter procedure Nicole Kenny TEACHER ADULT EDUCATION.HOME ENERGY CONSULTANT Work Phone: Pulmonary Medicine Comment on above: Dyspnea on exertion (Primary Dx); Smoker; Encounter for screening for malignant neoplasm of lung Start: 03-01-2022 Refill Oly Smith TEACHER ADULT EDUCATION .HOME ENERGY CONSULTANT Work Phone: Internal Medicine [place] Comment on above: Refill Request Start: 10-10-2021 [facility] Start: 08-14-2021 [facility] Start: 08-14-2021 [facility] Start: 01-27-2021 End: 01-27-2021 Subsequent hospital visit by physician Xr [facility] [place] Work Phone: Radiology Comment on above: Chest pain, unspecif ied type [R07.9] Pain [R52] Start: 09-28-2019 End: 10-06-2019 Patient encounter status Xr [place] Work Phone: [facility] Start: 04-29-2018 Emergency department patient visit UNKNOWN PROVIDER [facility] Procedures Date Procedure Procedure Detail Performing Clinician Start: 07-09-2025 History of percutane ous transluminal coronary angioplasty ARLEN STRONG TEACHER ADULT EDUCATION-HOME ENERGY CONSULTANT Start: 06-12-2025 History of percutane ous transluminal coronary angioplasty DR JAE LUCIANO MD Start: 05-17-2025 History of percutane ous transluminal coronary angioplasty GWYN FERRARO TEACHER ADULT EDUCATION-HOME ENERGY CONSULTANT Start: 03-04-2025 History of percutane ous transluminal coronary angioplasty TIFFANY HANSEN DO Start: 05-08-2023 Radex spine lumbosac ral 2/3 views Oly Durbin TEACHER ADULT EDUCATION.HOME ENERGY CONSULTANT Work Phone: Start: 05-08-2023 Lipid 1996 panel [...] QUADRIVALENT HIGH DOSE AGE 65+ 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 Phone: Start: 07-09-2022 Noninvasive ear/puls e oximetry multiple deter Margaret Kasper MD Work Phone: Start: 06-06-2022 Brncdilat rspse spmt ry pre&post-brncdilat admn Nicole Kenny TEACHER ADULT EDUCATION.HOME ENERGY CONSULTANT Work Phone: Start: 05-21-2022 Echo tthrc r-t 2d w/ wom-mode compl spec&colr d Tracy E Sima TEACHER ADULT EDUCATION.HOME ENERGY CONSULTANT Work Phone: Start: 08-25-2021 Cardiac catheterization GWYN FERRARO TEACHER ADULT EDUCATION-HOME ENERGY CONSULTANT Comment on above: with stents Start: 01-27-2021 Radiologic exam chest 2 views Ulises Hermosillo MD Work Phone: Start: 01-27-2021 Radex hips bilateral with pelvis minimum 5 views Babatunde Lomeli MD Work Phone: Start: 04-03-2017 Colonoscopy 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 Phone: Cardiac catheterization TIFFANY HANSEN Comment on above: with stents Cervical (qualifier value) [facility] Comment on above: replacement of 2 dis cs Cholecystectomy [facility] Cholecystocecostomy [facility] Ear structure (body structure) DR MILO ESTEBAN MD Comment on above: left facial nerves r epair Hysterectomy [facility] Investigation of tra nsfusion reaction Dr. Ulises Hermosillo Work Phone: None (qualifier value) [facility] Respiratory microbial culture Dr. Uliess Hermosillo Work Phone: Tonsillectomy [facility] Upper limb structure (body structure) [facility] Comment on above: left Plan of Treatment Date Care Activity Detail Author Start: 05-08-2028 Lipid 1996 panel - Serum or Plasma Lipid Screening [facility] Start: 05-08-2028 Lipid panel Lipid Screening [facility] Start: 05-08-2028 LIPID SCREEN LIPID SCREEN [facility] Start: 04-03-2027 Colonoscopy COLONOSCOPY [facility] Start: 04-03-2027 COLORECTAL CANCER SCREENING COLORECTAL CANCER SCREENING [facility] Start: 04-03-2027 Screening for malignant neoplasm of colon [facility] Start: 09-27-2026 LIPID SCREEN LIPID SCREEN [facility] Start: 05-08-2026 DIABETES SCREEN DIABETES SCREEN [facility] Start: 05-08-2026 Diabetes Screening Diabetes Screening [facility] Start: 10-19-2024 DIABETES SCREEN DIABETES SCREEN [facility] Start: 07-12-2024 Covid-19 Vaccine () Covid-19 Vaccine () [facility] Start: 07-12-2024 Covid-19 Vaccine ( season) Covid-19 Vaccine ( season) [facility] Start: 07-12-2024 Influenza [facility] Start: 05-08-2024 ANNUAL PCP TEAM CHRONIC DISEASE VISIT ANNUAL PCP TEAM CHRONIC DISEASE VISIT [facility] Start: 05-08-2024 Hepatitis B surface antibody level LDL CHOLESTEROL [facility] Start: 01-01-2024 ANNUAL PCP TEAM CHRONIC DISEASE VISIT ANNUAL PCP TEAM CHRONIC DISEASE VISIT [facility] Start: 11-11-2023 Advance Directive Discussion Advance Directive Discussion [facility] Start: 09-05-2023 ANNUAL PCP TEAM CHRONIC DISEASE VISIT ANNUAL PCP TEAM CHRONIC DISEASE VISIT [facility] Start: 08-31-2023 ANNUAL PCP TEAM CHRONIC DISEASE VISIT ANNUAL PCP TEAM CHRONIC DISEASE VISIT [facility] Start: 08-31-2023 COVID-19 VACCINE (2 - Pfizer series) COVID-19 VACCINE (2 - Pfizer series) [facility] Comment on above: Postponed from 12/12/2021 (Declined at t his time) Postponed from 01/16 (Declined at this time) Start: 08-31-2023 SHINGRIX VACCINE (1 of 2) SHINGRIX VACCINE (1 of 2) [facility] Comment on above: Postponed from 2005 (Declined at t his time) Start: 08-31-2023 Urine microalbumin profile DTAP,TDAP,TD (1 - Tdap) [facility] Comment on above: Postponed from 1974 (Declined at t his time) Start: 07-26-2023 Influenza vaccination LUNG CANCER SCREENING [facility] Start: 07-26-2023 Screening for malignant neoplasm of lung Lung Cancer Screening [facility] Start: 07-12-2023 Covid-19 Vaccine ( season) Covid-19 Vaccine () [facility] Start: 07-12-2023 Influenza vaccination [facility] Start: 05-11-2023 ANNUAL PCP TEAM CHRONIC DISEASE VISIT ANNUAL PCP TEAM CHRONIC DISEASE VISIT [facility] Start: 05-11-2023 BP CONTROLLED (<130/80) BP CONTROLLED (<130/80) [facility] Start: 05-08-2023 End: 07-08-2023 Comprehensive metabolic 2000 panel - Serum or Plasma [facility] Work Phone: Comment on above: Expected: 05/08/2023, Expires: 3 Start: 05-08-2023 End: 07-08-2023 LIPID PANEL, NONFASTING [facility] Work Phone: Comment on above: Expected: 05/08/2023, Expires: 3 Start: 04-21-2023 PNEUMOVAX AGE 65 AND OVER WITH 5YR LOOKBACK (#1) PNEUMOVAX AGE 65 AND OVER WITH 5YR LOOKBACK (#1) [facility] Start: 01-07-2023 Patient discharge [facility] Start: 01-07-2023 [facility] Start: 01-03-2023 Care regimes management [facility] Start: 01-03-2023 Notification of physician [facility] Start: 01-03-2023 [facility] Start: 01-03-2023 Following clinical pathway protocol [facility] Start: 01-02-2023 Assessment of risk of venous thromboembolism [facility] Start: 01-02-2023 Incentive spirometry [facility] Start: 01-02-2023 Inhalation therapy procedure [facility] Start: 01-02-2023 Insertion of catheter into peripheral vein [facility] Start: 01-02-2023 Introduction of urinary catheter [facility] Start: 01-02-2023 Measuring intake and output [facility] Start: 01-02-2023 Notification of physician [facility] Start: 01-02-2023 Oxygen therapy [facility] Start: 01-02-2023 Providing care according to standard [facility] Start: 01-02-2023 Provision of activity privileges [facility] Start: 01-02-2023 Referral to service [facility] Start: 01-02-2023 Tobacco use cessation education [facility] Start: 01-02-2023 Vital signs measurements [facility] Start: 01-02-2023 [facility] Start: 01-02-2023 Electrocardiographic procedure [facility] Start: 01-02-2023 [facility] Start: 01-02-2023 Verification routine [facility] Start: 01-02-2023 Admission procedure [facility] Start: 01-02-2023 Patient referral to dietitian [facility] Start: 11-26-2022 End: 01-26-2023 Alpha 1 antitrypsin [Mass/volume] in Serum or Plasma [id number] Lab Routine Stage 3 severe COPD by GOLD classification (HCC) Expected: 11/26/2022, Expires: 01/26/2023 [facility] Work Phone: Comment on above: Expected: 11/26/2022, Expires: 3 Start: 11-26-2022 End: 01-26-2023 CBC W Auto Differential panel - Blood CBC + DIFF Lab Routine Hemoptysis Expected: 11/26/2022, Expires: 01/26/2023 [facility] Work Phone: Comment on above: Expected: 11/26/2022, Expires: 3 Start: 11-11-2022 ADVANCE DIRECTIVE DISCUSSION ADVANCE DIRECTIVE DISCUSSION [facility] Start: 10-19-2022 ANNUAL PCP TEAM CHRONIC DISEASE VISIT ANNUAL PCP TEAM CHRONIC DISEASE VISIT [facility] Start: 09-27-2022 Hepatitis B surface antibody level LDL CHOLESTEROL [facility] Start: 08-11-2022 End: 10-11-2022 CBC panel - Blood by Automated count CBC Lab Routine PAD (peripheral artery disease) (HCC) Expected: 08/11/2022, Expires: 10/11/2022 [facility] Work Phone: Comment on above: Expected: 08/11/2022, Expires: 2 Start: 08-11-2022 End: 10-11-2022 Comprehensive metabolic 2000 panel - Serum or Plasma COMP METABOLIC PANEL Lab Routine PAD (peripheral artery disease) (HCC) Expected: 08/11/2022, Expires: 10/11/2022 [facility] Work Phone: Comment on above: Expected: 08/11/2022, Expires: 2 Start: 08-11-2022 End: 10-11-2022 Lipid 1996 panel - Serum or Plasma LIPID PANEL BASIC Lab Routine PAD (peripheral artery disease) (HCC) Expected: 08/11/2022, Expires: 10/11/2022 [facility] Work Phone: Comment on above: Expected: 08/11/2022, Expires: 2 Start: 07-12-2022 Influenza vaccination [facility] Start: 12-12-2021 COVID-19 VACCINE (2 - Pfizer 3-dose series) COVID-19 VACCINE (2 - Pfizer 3-dose series) [facility] Start: 12-12-2021 COVID-19 VACCINE (2 - Pfizer series) COVID-19 VACCINE (2 - Pfizer series) [facility] Start: 11-11-2021 ADVANCE DIRECTIVE DISCUSSION ADVANCE DIRECTIVE DISCUSSION [facility] Start: 01-06-2021 BP CONTROLLED (<130/80) BP CONTROLLED (<130/80) [facility] Start: 2020 BONE DENSITY BONE DENSITY [facility] Start: 2020 Bone Density Screening Bone Density Screening [facility] Start: 2020 Screening for osteoporosis Bone Density Screening [facility] Start: 04-21-2019 PNEUMOCOCCAL: 65+ (2 - PCV) PNEUMOCOCCAL: 65+ (2 - PCV) [facility] Start: 2015 RSV Vaccine (1 - 1-dose 60+ series) RSV Vaccine (1 - 1-dose 60+ series) [facility] Start: 2015 RSV Vaccine (1 - Risk 60-74 years 1-dose series) RSV Vaccine (1 - Risk 60-74 years 1-dose series) [facility] Start: 2010 Influenza vaccination LUNG CANCER SCREENING [facility] Start: 2005 Influenza vaccination LUNG CANCER SCREENING [facility] Start: 2005 SHINGRIX VACCINE (1 of 2) SHINGRIX VACCINE (1 of 2) [facility] Start: 2000 COLOGUARD (FIT-DNA) COLOGUARD (FIT-DNA) [facility] Start: [address] COLONOGRAPHY [facility] Start: 2000 FECAL OCCULT BLOOD FECAL OCCULT BLOOD [facility] Start: 2000 Screening for malignant neoplasm of colon [facility] Start: 2000 SIGMOIDOSCOPY SIGMOIDOSCOPY [facility] Start: 1985 Zoledronic acid therapy ALPHA-1 ANTITRYPSIN DEFICIENCY SCREENING [facility] Start: 1974 DTaP/Tdap/Td vaccine (1 - Tdap) DTaP/Tdap/Td vaccine (1 - Tdap) [employer] [facility] Start: 1974 Urine microalbumin profile [facility] Start: 1961 PNEUMOCOCCAL: 65+ (1 - PCV) PNEUMOCOCCAL: 65+ (1 - PCV) [facility] End: 10-10-2022 CT LUNG SCREEN WO IVCON CT LUNG SCREEN WO IVCON Radiology Routine Smoker Encounter for screening for malignant neoplasm of lung 1 Occurrences starting 05/30/2022 until 10/10/2022 [facility] Work Phone: Comment on above: 1 Occurrences starting 05/30/2022 until 10/10/2022 End: 06-26-2024 CT LUNG SCREEN WO IVCON CT LUNG SCREEN WO IVCON Radiology Routine Encounter for screening for lung cancer Tobacco use current 1 Occurrences starting 05/28/2023 until 06/26/2024 [facility] Work Phone: Comment on above: 1 Occurrences starting 05/28/2023 until 06/26/2024 End: 09-30-2023 Dxa bone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 to find one close to you.3.Make use of household items: Use cat litter or old coffee grounds to dispose medications if other options arenot available. Mix your drugs with these household products, seal them in an airtight container andthrow it into the garbage. Call [facility]: [phone] to be sure your drugs can be [...] Patient Education Materials Heart Failure, Self Care, Ztft-hz-Dsgj Chronic Obstructive Pulmonary Disease Exacerbation, Nyym-td-Jxxz Medication Leaflets My discharge plan and instructions have been reviewed and explained to me and I,STEVEN KOENIG understand my current condition and have read and understand these discharge instructions. I have received a written copy of the plan/instructions. If I have questions, I am aware that I should contact my doctor. 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 Signature: Date/Time: Relationship to Patient: Witness Name/Signature: Date/Time: [facility] [id number] Note Date of Service 05/23/2025 Chief Complaint [...] The lasix was likely started by her seal mixer so this provider is not changing it. She can discuss it further with her seal mixer. Patient wanted to walk down to the [...] documenting in chart. Digitally Signed by EMMA DEMRACO on 05/23/2025 03:23 PM [place] [id number] Note. MICRO - Microbiology PROCEDURE: Blood Culture [...] Locations *1: This test was performed at: [address], [address] [place], [place] [address]07-12-2025 Note. MICRO - Microbiology PROCEDURE: Blood Culture [...] Locations *1: This test was performed at: [address], [address] [place], [place] [address]-12-2025 Nurse Progress note Pt expressing frustration re: awaiting insurance approval for transfer to SNF. Pt angry with profanities, emotional support provided. TORI Sin in to see patient with update on process. PRN ativan administered per orders. Pt states she is considering leaving and going home today. Pt educated on plan of care and need for SNF services. SUPERVISOR SAMPLE Emma made aware. Digitally Signed by Nayana Gudino RN on 05/22/2025 12:24 PM [id number] Note Date of Service 05/22/2025 Chief Complaint [...] patient that [facility] until her insurance company gives approval. Likewise, they should pay her hospital bill because they are holding up this process. She is requestingto speak to the social science manager. She is aware that the social science manager is coming in today but we are [...] by EMMA DEMARCO on 05/22/2025 11:25 AM [facility] [id number] Note Date of Service 05/21/2025 Chief Complaint [...] approve her for a skilled stay at [facility]. If we do not get precert [...] by EMMA DEMARCO on 05/21/2025 04:16 PM [facility]07-07-2025 Note. MICRO - Microbiology PROCEDURE: Streptococcus Pneumoniae [...] Locations *1: This test was performed at: [address], [address] [place], [place] [address]-07-2025 Note. MICRO - Microbiology PROCEDURE: Legionella Urine [...] Locations *1: This test was performed at: [address], [address] [place], [place] [address]-07-2025 Evaluation + Plan noteExtracted from: Title:History and Physical Author:ARLEN STRONG APRN-HOME ENERGY CONSULTANT Date:05/17/25 1. Acute exacerbation of chr onic [...] agreeable to people coming into her home. health worker reached out to APS for follow-up. [...] Date:07/30/2025 10:00:00 AM Scheduled Provider:EMMA QUEEN DO Location:[facility] Appointment Type: OV Future Scheduled Tests Laboratory* Basic Metabolic Panel 01/11/25 * N-Terminal proBNP 01/11/25 Radiology* MRI Cardiac Morphology & Func W+W/O Cont 02/23/25 * CT Low Dose Lung Cancer Screening (LDCT) 03/10/25 [facility] 07-07-2025 Note Date of Service 05/17/25 Chief Complaint Arrives via EMS with c/o SOB from home History of Present Illness 69-year-old female with past medical history significant for COPD, hypertension, hyperlipidemia, PAD, CAD s/p PCI, cardiomyopathy (LVEF 30% 12/2024), TBI, depression, anxiety, GERD, hepatitis C, tobacco use, chronic respiratory failure on 2 L nasal cannula. Patient presented to [facility] emergency department 05/16/2025 with increasing dyspnea. No [...] agreeable to people coming into her home. health worker reached out to APS for follow-up. [...] Ongoing Alcohol use disorder Asthma CAD in [place] artery Cardiomyopathy COPD with chronic bronchitis Depression, [...] Constant Order Digitally Signed by ARLEN STRONG APRN-HOME ENERGY CONSULTANT on 05/17/2025 12:41 PM Digitally Signed by SHAUNA VALDEZ DO on 05/17/2025 06:07 PM [place] [id number] Note* Exam Date Time Procedure Performing Provider Status 05/16/25 9:11 PM EKG [ED AOH] - CV BRIAN TRINIDAD DO; Aut h (Verified) ECG Final Report Sinus rhythm Biatrial enlargement Probable left ventricular hypertrophy Nonspecific T abnormalities, lateral leads Baseline wander in lead(s) V2,V3 Electronic Signature: AMOSBRIAN DO 05/16/2025 21:26:27 [facility]07-06-2025 Note* Exam Date Time Procedure Performing Provider Status 05/16/25 8:02 PM XR Chest 1 View ANTHONY MERIDA MD; [facility] (Verified) [id number] ORIGINAL EXAMINATION: ONE XRAY VIEW OF THE [...] 05/16/2025 8:27:46 PM Ordering Provider: BRIAN TRINIDAD [facility]04-26-2025 Hospital Discharge instructions Patient Education 03/06/2025 11:52:35 [...] oxygen Your health care provider or a outside industrial sales representative from your medical appliance maker company will show you how touse your [...] move around. Follow instructions from your medical appliance maker company about how to safely secure your tank. Make sure you have enough oxygen for the amount of time you will be away from home. If you are planning air travel, contact the airline to find out if they allow the use of an approved portable oxygen concentrator. You may also need documents from your health care provider and medical appliance maker company before you travel. General safety tips [...] Summary Your health care provider or a outside industrial sales representative from your medical appliance maker company will show you how touse your [...] 01/17/2005 Document Revised: 04/16/2019 Document Reviewed: 05/21/2017 Groupsite Patient Education 2020 [employer].. 03/06/2025 11:50:46 Chronic Obstructive Pulmonary Disease, Nomc-tl-Gqeu Chronic Obstructive Pulmonary Disease Chronic obstructive pulmonary [...] Follow these instructions at home: Medicines Take cmio-fcu-uoogdyg and prescription medicines only as told by [...] keep yourself as healthy as possible. Take znjn-xjo-gxwmegk and prescription medicines only as told by your doctor. If you smoke, stop. Smoking makes the problem worse. This information is not intended to replace advice given to you by your health care provider. Make sure you discuss any questions you have with your health care provider. Document Released: 04/15/2009 Document Revised: 10/10/2018 Document Reviewed: 12/02/2017 [employer] Patient Education 2020 Groupsite Inc. Follow Up Care 03/04/2025 05:49:38 With:EMMA QUEEN DO Address: [address] [place] [phone] When:3-5 days Comments:Please call to schedule your post-hospital follow-up appointment. [facility] 04-26-2025 Note Discharge Instructions Thank you for allowing [facility] to assist you with your healthcare needs. The following is importantdischarge information regarding your hospital visit. Your Care Team [facility] Your Diagnosis CAD in [place] artery Cardiomyopathy Chronic obstructive pulmonary disease IGOR [...] your mind you can call [facility] at [phone]. You indicated that you would be interested in assisted living facility. [facility] an assisted living and they also have Medicaid waiver. Their phone number is [phone]. You should be able tocall them on Saturday for more information. Scheduled Follow-Up Appointments Appointment Type When With Where Contact Information StatusCT Thorax Screening w/o Contrast 03/10/2025 04:00 PM EDT [facility] [phone] Confirmed PC OV 07/30/2025 10:00 AM EDT EMMA QUEEN DO [address] [phone] Confirmed Follow Up Appointments Follow Up with EMMA QUEEN DO When:Within 3-5 days Where:[address] [place] [phone] Additional Information: Please call to schedule your [...] a day Duration: 30 Days Pickup at [facility]/pharmacy #[id number] 03/06 New predniSONE (prednisone 10mg tab (TAPER)) Taper 33-51-97-56-39-41-10-5 mg x 1 day until gone by mouth Once a day (in the morning) Duration: 8 Days Pickup at [facility]/pharmacy #[id number] [facility] 03/06 Unchanged albuterol (albuterol MDI (90 mcg/ inh) CFC free inhalation aerosol) 2 puff(s) by inhalation Four (4) times a day as needed for as needed for wheezing COPD with chronic bronchitis Pickup at [facility]/pharmacy #[id number] 03/06 Unchanged albuterol (albuterol 0.63 mg/ 3 mL (0.021%) inhalation solution) 3 Milliliter by inhalation Four (4) times a day Unchanged amLODIPine (amLODIPine 5 mg oral tablet) 1 tab(s) by mouth Once a day 03/06 Unchanged aspirin (aspirin 81 mg oral tablet, chewable) 81 Milligram Chewed Once a day Stented coronary artery CAD in [place] artery 03/06 Unchanged clopidogrel (clopidogrel 75 mg [...] bedtime Psychophysiologic insomnia 08pm 03/05 Pharmacy Information [facility]/pharmacy #[id number]: [address], [place] [id number] [phone] Please take this list to your next [...] may report side effects to FDA at [phone]. What other drugs will affect clopidogrel? Sometimes it is not safe to use certain medications at the same time. Some drugs can affect your blood levels of other drugs you take, which may increase side effects or make the medications less effective. Tell your doctor about all your other medicines, especially: a stomach acid radiosonde operator such as omeprazole, Nexium, or Prilosec; an antidepressant such as citalopram, fluoxetine, sertraline, Cymbalta, Effexor, Lexapro, Pristiq, or Prozac; rifampin; a blood thinner--warfarin, Coumadin, Jantoven; or NSAIDs (nonsteroidal anti-inflammatory drugs)--aspirin, ibuprofen (Advil, Motrin), naproxen (Aleve), celecoxib, diclofenac, indomethacin, meloxicam, and others. This list is not complete. Other drugs may affect clopidogrel, including prescription and vsux-zda-vlnajos medicines, vitamins, and herbal products. Not all [...] to ensure that the information provided by [employer]. ('Multum') is accurate, up-to-date, and complete, but no guarantee is made to that effect. Drug information contained herein may be time sensitive. [employer] information has been compiled for use by healthcare practitioners and consumers in the [place] and therefore [employer] does not warrant that uses outside of the [place] are appropriate, unless specifically indicated otherwise. [employer]s drug information does not endorse drugs, diagnose patients or recommend therapy. [employer]s drug information isan informational resource designed to [...] effective or appropriate for any given patient. [employer] does not assume any responsibility for any aspect of healthcare administered with the aid of information [employer] provides. The information contained herein is not intended to cover all possible uses, directions, precautions, warnings, drug interactions, allergic reactions, or adverse effects. If you have questions about the drugs you are taking, check with your doctor, nurse or pharmacist. Copyright 5973-0741 [employer]. Version: 18.01. Revision Date: 02/08/2021. Education Materials [...] oxygen Your health care provider or a outside industrial sales representative from your medical appliance maker company will show you how touse your [...] move around. Follow instructions from your medical appliance maker company about how to safely secure your tank. Make sure you have enough oxygen for the amount of time you will be away from home. If you are planning air travel, contact the airline to find out if they allow the use of an approved portable oxygen concentrator. You may also need documents from your health care provider and medical appliance maker company before you travel. General safety tips [...] Summary Your health care provider or a outside industrial sales representative from your medical appliance maker company will show you how touse your [...] 01/17/2005 Document Revised: 04/16/2019 Document Reviewed: 05/21/2017 Groupsite Patient Education 2020 Groupsite Inc. Chronic Obstructive Pulmonary Disease Chronic obstructive [...] Follow these instructions at home: Medicines Take uekq-dec-uxhisnr and prescription medicines only as told by [...] keep yourself as healthy as possible. Take ychx-rlb-kzrgcgl and prescription medicines only as told by your doctor. If you smoke, stop. Smoking makes the problem worse. This information is not intended to replace advice given to you by your health care provider. Make sure you discuss any questions you have with your health care provider. Document Released: 04/15/2009 Document Revised: 10/10/2018 Document Reviewed: 12/02/2017 Groupsite Patient Education 2020 Groupsite Inc. Additional Information VACCINATE! IT SAVES LIVES! Members of the community who have not yet received the COVID-19 vaccine and would like to receive it can visit one of [facility] vaccine clinics. There are many vaccine clinic locations within the [facility]. For locations and available times, please visit https://[email or web address].[place].gov/. It is important to note that some COVID mobile vaccine clinics are held outdoors and may be canceled in rainy or stormy conditions. To learn more about pediatric vaccinations (ages 5-11), we invite you to visit the [facility] webpage. https://www.[facility].org/pages/0736-Djtah-Xsdpuibibgf-Qofsbzdsbx-Lhnfr-Edk stions.htmlTo learn more about the COVID-19 vaccine, we invite you to visit the CDC website for a list of frequently asked questions.https://www.cdc.gov/coronavirus/2019-ncov/vaccines/faq.html [facility] Patient Portal Access Instructions: Stay connected with your healthcare team and access your personal medical information anytime with the [facility] Patient Portal. Please follow the directions below to create your [facility] account: 1.Access the email account you provided upon registration to the hospital/physician office.2.Look for an invitation email from [facility].3.Open the email and access the invitation link: AcceptInvitation to [facility].4.Fill in the required randle to create your account. To access your account, visit [email or web address]. Click the blue button labeled "Access Patient Portal" and then log in with the username and password that you created in the steps above. You will be able to view your test results, lab results, a summary of your visits, upcoming appointments and more. There is also a convenient messaging option where you can send secure messages to your BitGravityvider. In addition, you will have the ability to download any documents or summaries to your computer and/or send the information securely to a physician. Remember that your healthcare information is confidential, so carefully consider who you will allowto register on the [facility] Patient Portal for access to your information. You can also access the [facility] Portal on the [facility] larissa. Simply click on "Patient Portal" and then log into your account. If you would like to receive a full copy of your medical records, please contact the [facility] Medical Records Department by calling [phone], Saturday through Saturday between 8 a.m. and [...] Call your local pharmacy or go to http://BridgeCo.StyleTech/2F0Cw6x to find one close to you.3.Make use of household items: Use cat litter or old coffee grounds to dispose medications if other options arenot available. Mix your drugs with these household products, seal them in an airtight container andthrow it into the garbage. Call [facility]: [phone] to be sure your drugs can be [...] Oxygen Use, Adult Chronic Obstructive Pulmonary Disease, Sslc-yh-Jqqd Medication Leaflets Plavix My discharge plan and instructions have been reviewed and explained to me and I,STEVEN KOENIG understand my current condition and have read and understand these discharge instructions. I have received a written copy of the plan/instructions. If I have questions, I am aware that I should contact my doctor. 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 Signature: Date/Time: Relationship to Patient: Witness Name/Signature: Date/Time: [facility]04-26-2025 Note Date of Service 03/05/2025 Chief Complaint COPD Subjective 69-year-old female with past medical history significant for COPD, hypertension, hyperlipidemia, PAD, CAD s/p PCI, cardiomyopathy (LVEF 30% 12/2024), TBI, depression, anxiety, GERD, hepatitis C, anxiety, tobacco use, chronic respiratory failure on 2 L nasal cannula. Patient presented to [facility] emergency department 03/04/2025 via EMS for increasing [...] by ARLEN STRONG on 03/06/2025 08:56 AM [facility]04-25-2025 Nurse Progress note Hospice nurse in [facility] to get patient and patients family educated on Hospice and get patient signed up with [facility]. At this time pt is [...] Christina Logan RN on 03/05/2025 06:09 PM [facility]04-25-2025 Pastoral care Progress note Pastoral Care Note Entered On: 03/05/2025 9:50 EDT Performed On: 03/05/2025 9:48 EDT by Jatinder Turk Pastoral Care Type of Pastoral Visit : Initial visit Spiritual Care Visit Initiated by : Printed Circuit Boards Stripper Etcher Spiritual Care Reason for Visit : General Spiritual Assessment : Not using [employer], Spiritual, not Druze, Positive Image of God Spiritual Care Emotional [...] Care Visit Length : 5 minute(s) Jatinder Tukr - 03/05/2025 9:48 EDT Digitally Signed by Jatinder Turk on 03/05/2025 09:48 AM [facility]04-24-2025 Note Date of Service 03/04/2025 Chief Complaint [...] 2 L nasal cannula. Patient presented to [facility] emergency department 03/04/2025 via EMS for increasing [...] Ongoing Alcohol use disorder Asthma CAD in [place] artery Cardiomyopathy COPD with chronic bronchitis Depression, [...] by ARLEN STRONG on 03/04/2025 03:24 PM [facility]04-24-2025 Evaluation + Plan noteExtracted from: Title:History and [...] Appointments Appointment Date:03/10/2025 04:00:00 PM Scheduled Provider: Location:[facility] Appointment Type:CT Chest (Low Dose) Screening/CT Lung (L Appointment Date:07/30/2025 10:00:00 AM Scheduled Provider:EMMA QUEEN DO Location:[facility] Appointment Type:PC OV Future Scheduled Tests Laboratory* Basic Metabolic Panel 01/11/25 * N-Terminal proBNP 01/11/25 Radiology* MRI Cardiac Morphology & Func W+W/O Cont 02/23/25 * CT Low Dose Lung Cancer Screening (LDCT) 03/10/25 [facility] 04-24-2025 HCoV 229E RNA IVANA+non-probe Ql (Nph)Not Detected *NA* (03/04/25 10:09 AM)AH Auto Viro/Sero [id number] Note* Exam Date Time Procedure Performing Provider Status 03/04/25 6:21 AM XR Chest 1 View CLAUDE CAMPUZANO MD; Auth (Verified) [id number] ORIGINAL EXAMINATION: ONE XRAY VIEW OF THE [...] 03/04/2025 6:41:45 AM Ordering Provider: EMMANUEL KILLIAN [place] [id number] Note* Exam Date Time Procedure Performing Provider Status 03/04/25 6:01 AM EKG [ED AOH] - CV EMMANUEL KILLIAN DO ; Auth (Verified) ECG Final Report Sinus rhythm Probable left atrial enlargement Probable left ventricular hypertrophy Anterior Q waves, possibly due to LVH Compared to ECG at 02/19/2025 01:15:39 BORDERLINE ECG Electronic Signature: EMMANUEL KILLIAN DO 03/04/2025 06:19:02 [place] [id number] Note. MICRO - Microbiology PROCEDURE: Blood Culture [...] Locations *1: This test was performed at: [address], [address] [place], [place] [address]-16-2025 Note. MICRO - Microbiology PROCEDURE: Blood Culture [...] Locations *1: This test was performed at: [address], [address] [place], [place] [address]-11-2025 Note. MICRO - Microbiology PROCEDURE: Streptococcus Pneumoniae [...] Locations *1: This test was performed at: [address], [address] [place], [place] [address]-11-2025 Note. MICRO - Microbiology PROCEDURE: Legionella Urine [...] Locations *1: This test was performed at: [address], [address] [place], [place] [address]-03-2025 Hospital Discharge instructions Patient Education 12/14/2024 09:07:49 [...] Document Reviewed: 10/29/2014 ExitCare Patient Information 2015 General Assembly. This information is not intended to replace [...] until you are awake and alert. Take bnhx-yes-kdvzodv and prescription medicines only as told by [...] 08/18/2014 Document Revised: 10/10/2018 Document Reviewed: 02/16/2017 Groupsite Patient Education 2020 [employer].. Follow Up Care 11/30/2024 10:45:53 With:XAVIER GONZALEZ MD Address: [address] [place] [address] [address] [place] [id number] When:01/18/2025 10:00:00 [facility] 02-03-2025 Summary of episode note Discharge Instructions Thank you for allowing [facility] to assist you with your healthcare needs. The following is importantdischarge information regarding your hospital visit. Your Care Team EMMA QUEEN DO What to do next Scheduled Follow-Up Appointments Appointment Type When With Where Contact Information StatusEcho - Echocardiogram Adult 12/18/2024 02:00 PM EST [facility] [phone] Confirmed CV OV 01/18/2025 10:00 AM EDT [facility] Confirmed PC OV 01/21/2025 02:00 PM EDT EMMA QUEEN DO [address] [phone] Confirmed Follow Up Appointments Follow Up with XAVIER GONZALEZ MD When:01/18/2025 10:00 AM EDT Where:[address] [place] [address] [address] [place] [address] [phone] The Following Activity and Diet Have Been [...] a day Stented coronary artery CAD in [place] artery Unchanged clopidogrel (clopidogrel 75 mg oral [...] Document Reviewed: 10/29/2014 ExitCare Patient Information 2015 General Assembly. This information is not intended to replace [...] until you are awake and alert. Take fptk-jqs-qvlttjk and prescription medicines only as told by [...] 08/18/2014 Document Revised: 10/10/2018 Document Reviewed: 02/16/2017 Groupsite Patient Education 2020 [employer]. Additional Information VACCINATE! IT SAVES LIVES! Members of the community who have not yet received the COVID-19 vaccine and would like to receive it can visit one of [facility] vaccine clinics. There are many vaccine clinic locations within the [facility]. For locations and available times, please visit [email or web address].[place].gov/. It is important to note that some COVID mobile vaccine clinics are held outdoors and may be canceled in rainy or stormy conditions. To learn more about pediatric vaccinations (ages 5-11), we invite you to visit the [facility] webpage. [email or web address]://www.[email or web address]/pages/[email or web address]-Jnvjc-Bnpnzljsjxs-Vqludtyhfc-Gaqyw-Wck stions.htmlTo learn more about the COVID-19 vaccine, we invite you to visit the CDC website for a list of frequently asked questions.https://www.cdc.gov/coronavirus/2019-ncov/vaccines/faq.html [facility] Patient Portal Access Instructions: Stay connected with your healthcare team and access your personal medical information anytime with the [facility] Patient Portal. Please follow the directions below to create your [facility] account: 1.Access the email account you provided upon registration to the hospital/physician office.2.Look for an invitation email from [facility].3.Open the email and access the invitation link: AcceptInvitation to [facility].4.Fill in the required randle to create your account. To access your account, visit [email or web address]. Click the blue button labeled "Access Patient [...] who you will allowto register on the [facility] Patient Portal for access to your information. You can also access the [facility] Patient Portal on the [facility] Any[facility] larissa. Simply click on "Patient Portal" and then log into your account. If you would like to receive a full copy of your medical records, please contact the [facility] Medical Records Department by calling [phone], Saturday through Saturday between 8 a.m. and [...] Call your local pharmacy or go to [email or web address] to find one close to you.3.Make use of household items: Use cat litter or old coffee grounds to dispose medications if other options arenot available. Mix your drugs with these household products, seal them in an airtight container andthrow it into the garbage. Call [facility]: [phone] to be sure your drugs can be [...] aware that I should contact my doctor. 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 Signature: Date/Time: Relationship to Patient: Witness Name/Signature: Date/Time: [id number] Discharge summary Date of Service 12/14/2024 Discharge [...] AM Digitally Signed by MILO MAJOR MD [facility] [id number] Miscellaneous Notes* Telephone Encounter - Nena Dozier RN - 01/24/2024 2:16 PM EDT Patient calls to ask if provider would be willing to call in one more albuterol inhaler until seen by PCP in [facility]. Appointment to establish care is 01/31/2024 but inhaler is completely out and patient is having trouble with wheezing/sob. Pended. Patient requests call back at [phone]. Nena Dozier RN documented in this encounterSelect Medical [facility]02-13-2024 Miscellaneous Notes* Telephone Encounter - Christina Greco LPN - 12/24/2023 9:41 AM EST Spoke with pt and she reports she is going to stay in [place] and will be getting an apt scheduled with Dr.Jacqueline Beaver. Does not have an apt yet Pt has been waiting for her insurance to start at the beginning of the month. Christina Greco LPN * Telephone Encounter - Oly Durbin APRN.CNP - 12/24/2023 9:03 AM EST Patient was advised in September that she needed to find new PCP in [place] if she was going to remain there. [...] you. Irena Cantor LPN. documented in this encounterSelect Medical Trihealth Rehabilitation Hospital12-08-2023 Miscellaneous Notes* Telephone Encounter - Ranulfo [...] notify patient. Telma Austin documented in this encounterSelect Medical Trihealth Rehabilitation Hospital11-16-2023 Miscellaneous Notes* Telephone Encounter - Sal Lee LPN - 09/26/2023 8:08 AM EST Pt notified of pcp's message. Pt states she will be coming back to [place]. Is just in [place] for a few months to help out [...] to report that she is currently in [place] and will be there for the next several months. Patient is going to run out of medication and is unable to transfer prescriptions. Patient asking if provider would send prescriptions to [facility] pharmacy in [place]. Pended 90 day request for review. Nena Dozier RN documented in this encounterSelect Medical Trihealth Rehabilitation Hospital09-08-2023 NotePatient Outreach (NETNAV) STEVEN KOENIG ([id number]) 1955 F Date Time Provider Department 07/19/23 MELISSA VITAL During your visit today, we recorded the following information about you: Melissa Vital MA 07/19/2023 3:08 PM Addendum POPULATION HEALTH NAVIGATION OUTREACH Action/ Spoke with patient. Patient declined scheduling annual wellness exam/htn appointment. Patient states in [place] right now. Patient reminded of flu shot due Per 05/08/23 HOME ENERGY CONSULTANT office note return in about 6 months (around 11/07/23) for medicare wellness exam. Patient Identified by Name and : YES, via phone Outreach Outcome/Action Spoke to patient / parent / legal guardian: Patient declined Did you use a PCP flex slot to schedule this appointment? N/A Reason for Outreach Care Gap or Scheduling/Wellness visits Payer: Payor: [employer]avor AND [employer] / Plan: Dash Hudson HMO / Product Type: HMO / Care [...] Population Health Navigation Outreach [3910] Cmt: Navigator [facility] outreach Prescriptions as of 07/19/2023 - aspirin [...] 1 TABLET BY MOUTH EVERY DAY - nndzgnalnni-wyznubzdw-whjpmiyq (TRELEGY ELLIPTA) 200-62.5-25 mcg inhalation powder Inhale [...] minutes, none*09/28/2019 07/07/2020 PAD (peripheral artery disease) ([facility]) [I73.9] 09/28/2019 Anxiety and depression [F41.9, F32.A] 10/06/2019 Hypomagnesemia [E83.42] 10/22/2019 10/23/2019 Asthma [J45.909] 07/07/2020 07/07/2020 Prediabetes [R73.03] 02/04/2021 Chest pain [R07.9] 05/08/2021 Other chest pain [R07.89] 05/08/2021 Stenosis of carotid artery [I65.29] 05/08/2021 Mixed hyperlipidemia [E78.2] 05/08/2021 Abnormal stress test [R94.39] 08/26/2021 Dyspnea on exertion [R06.09] 08/26/2021 Coronary artery disease involving [place] tolbert*09/27/2021 Lung nodule [R91.1] 08/31/2022 History of hemoptysis [Z87.898] 11/20/2022 Encounter Status:Closed by MELISSA VITAL on 07/19/23[facility] 07-19-2023 NoteHNO ID: [id number] Author: Melissa Vital MA Service: ? Author Type: Channel Marketing Program Manager Type: Progress Notes Filed: 07/19/2023 3:08 PM Note Text: POPULATION HEALTH NAVIGATION OUTREACH Action/FYI Spoke with patient. Patient declined scheduling annual wellness exam/htn appointment. Patient states in [place] right now. Patient reminded of flu shot due Per 05/08/23 HOME ENERGY CONSULTANT office note return in about 6 months (around 11/07/23) for medicare wellness exam. Patient Identified by Name and : YES, via phone Outreach Outcome/Action Spoke to patient / parent / legal guardian: Patient declined Did you use a PCP flex slot to schedule this appointment? N/A Reason for Outreach Care Gap or Scheduling/Wellness visits Payer: Payor: [employer] AND [employer] / Plan: Dash Hudson HMO / Product Type: HMO / Care Gap Reviewed:: Annual Wellness visit Controlling Blood Pressure Flu Vaccine Reminder: Reminder note to check Health Maintenance for items below Health Maintenance items due: BONE DENSITY Never done BP CONTROLLED (<130/80) due on 01/06/2021 INFLUENZA(1) due on 07/12/2023 Navigation Signature: Melissa Vital MA July 19, 2023 10:53 [facility]08-03-2023 Miscellaneous Notes* Telephone Encounter - Elizabeth Ly Ma - 06/13/2023 4:23 PM EDT Patient contacted via telephone regarding upcoming NEW patient appointment with Dr. Harrsi on 06/14/23. Patient informed of the following: This is the [facility] calling regarding your upcoming appointment with Dr. Harris. To avoid a delay in your care, please bring any radiology images that have been done outside of the[facility] on a disk to be [...] this appointment Appointment canceled. documented in this encounterSelect Medical Trihealth Rehabilitation Hospital08-03-2023 Miscellaneous Notes* Telephone Encounter - Irena Cantor LPN - 06/13/2023 9:31 AM EDT Patient notified, verbalized understanding. Irena Cantor LPN * Telephone Encounter - lUises Hermosillo MD - 06/13/2023 1:58 AM EDT [...] to be taking. Please call her at [phone]. documented in this encounterSelect Medical Trihealth Rehabilitation Hospital07-31-2023 Miscellaneous Notes* Telephone Encounter - Ranulfo [...] notify patient. Cailin Austin documented in this encounterSelect Medical Trihealth Rehabilitation Hospital07-28-2023 Miscellaneous Notes* Telephone Encounter - Jenn Almaraz, RN - 06/07/2023 8:18 AM EDT Pharmacy electronically requests the following refill(s) Requested Prescriptions Pending Prescriptions Disp Refills amLODIPine (NORVASC) 10 mg tablet [Pharmacy Med Name: AMLODIPINE BESYLATE 10 MG TAB] 90 tablet 3 Sig: TAKE 1 TABLET BY MOUTH EVERY DAY Jenn Almaraz, RN documented in this encounterSelect Medical Trihealth Rehabilitation Hospital06-30-2023 Miscellaneous Notes* Telephone Encounter - Hyacinth Suero LPN - 05/10/2023 2:59 PM EDT Spoke with pt gave information provided. P[t voices understanding. Will try cholesterol med uses [facility] [place]. Please assist in scheduling with physical therapy [...] advise, Christina Franco RN documented in this encounterSelect Medical Trihealth Rehabilitation Hospital06-29-2023 NoteHNO ID: [id number] Author: Mely Griffin PA-C Service: ? Author Type: Physician Certified Nurse Practitioner Type: Progress Notes Filed: 05/09/2023 2:05 PM [...] Alcohol use disorder 01/18/2016 Dr. Angie Jones, [facility] Anxiety 12/14/2015 Bipolar affective disorder, currently active ([facility]) 01/18/2016 Dr. Angie Jones, [facility] Chronic bronchitis ([facility]) 07/26/2016 Closed skull fracture ([facility]) 1994 [facility], [facility] Coronary artery disease DDD (degenerative disc disease), cervical Endometriosis 2007 Essential hypertension 12/14/2015 GERD (gastroesophageal reflux disease) 03/13/2019 History of colon polyps History of gastric ulcer 12/14/2015 HLD (hyperlipidemia) Injury of left facial nerve 1994 PAD (peripheral artery disease) ([facility]) 09/28/2019 Recurrent major depression in partial remission ([facility]) 12/14/2015 S/P drug eluting coronary stent placement 08/25/2021 LAD and Dg2 Spinal stenosis Allergies: No Known Allergies isosorbide mononitrate ER (IMDUR) 30 mg 24 hr tablet TAKE 1 TABLET BY MOUTH EVERY DAY traZODone (DESYREL) 100 mg tablet Take 2 tablets by mouth daily at bedtime. uglborbtqhm-mugvlqlct-kszfurlq (TRELEGY ELLIPTA) 200-62.5-25 mcg inhalation powder Inhale [...] TOTAL FACIAL NERVE DECOMPRESSION AND/REPAIR Left 1989 [facility] I reviewed the past medical history, family history, social history and surgical history with changes noted above and updated in EMR. IMMUNIZATIONS Prevnar - 05/11/2022 Pneumovax - 04/21/2018, 09/13/2011 Influenza - 08/31/2022 CO (more content not included)...[facility]06-29-2023 History of Present illness Narrative* Mely [...] Anxiety 12/14/2015 Bipolar affective disorder, currently active ([facility]) 01/18/2016 [facility] Chronic bronchitis ([facility]) 07/26/2016 Closed skull fracture ([facility]) 1994 [facility], [facility] Coronary artery disease DDD (degenerative disc disease), cervical Endometriosis 2007 Essential hypertension 12/14/2015 GERD (gastroesophageal reflux disease) 03/13/2019 History of colon polyps History of gastric ulcer 12/14/2015 HLD (hyperlipidemia) Injury of left facial nerve 1994 PAD (peripheral artery disease) ([facility]) 09/28/2019 Recurrent major depression in partial remission ([facility]) 12/14/2015 S/P drug eluting coronary stent placement 08/25/2021 LAD and Dg2 Spinal stenosis Allergies: No Known Allergies isosorbide mononitrate ER (IMDUR) 30 mg 24 hr tablet TAKE 1 TABLET BY MOUTH EVERY DAY traZODone (DESYREL) 100 mg tablet Take 2 tablets by mouth daily at bedtime. kpgjynpjfos-wyrijtodt-cxtndcwz (TRELEGY ELLIPTA) 200-62.5-25 mcg inhalation powder Inhale [...] TOTAL FACIAL NERVE DECOMPRESSION &/REPAIR Left 1989 [facility] I reviewed the past medical history, [...] 57.2 kg (126 lb) LMP (LMP Unknown) JjB541% BMI 22.32 kg/m Gen: No acute distress. [...] like to follow up locally here in [place]. Next LDCT due July 2023. Portions of this documentation were copied and pasted from previous office visit notes in order to provide a cohesive continuity of the history. The note has been reviewed and edited and updated as necessary. Mely Griffin PA-C documented in this encounterSelect Medical Trihealth Rehabilitation Hospital06-28-2023 NoteHNO ID: [id number] Author: RT Aziza(R) Service: ? Author Type: Creative Project Manager Type: Progress Notes Filed: 05/08/2023 1:01 PM [...] BY: RT Aziza(R) May 08, 2023 12:52 [facility]06-28-2023 NoteHNO ID: [id number] Author: Oly Smith APRN.CNP Service: ? Author [...] Anxiety 12/14/2015 Bipolar affective disorder, currently active ([facility]) 01/18/2016 Dr[facility] Chronic bronchitis ([facility]) 07/26/2016 Closed skull fracture ([facility]) 1994 [facility], [facility] Coronary artery disease DDD (degenerative disc disease), cervical Endometriosis 2007 Essential hypertension 12/14/2015 GERD (gastroesophageal reflux disease) 03/13/2019 History of colon polyps History of gastric ulcer 12/14/2015 HLD (hyperlipidemia) Injury of left facial nerve 1994 PAD (peripheral artery disease) ([facility]) 09/28/2019 Recurrent major depression in partial remission ([facility]) 12/14/2015 S/P drug eluting coronary stent placement [...] HYSTERECT W/WO RMVL TUBE OVARY 1979 Hysterectomy, [place] TOTAL FACIAL NERVE DECOMPRESSION AND/REPAIR Left 1989 [facility] ALLERGIES Patient has no known allergies. [...] 2 tablets by mouth daily at bedtime. mrtiegbgkgb-pngfniqku-kayjkrpw (TRELEGY ELLIPTA) 200-62.5-25 mcg inhalation powder Inhale [...] BY MOUTH EVERY DA (more content not included)...[facility]06-28-2023 History of Present illness Narrative* Oly Older, TEACHER ADULT EDUCATION.HOME ENERGY CONSULTANT - 05/08/2023 12:24 PM EDT CC: Patient [...] Anxiety 12/14/2015 Bipolar affective disorder, currently active ([facility]) 01/18/2016 [facility] Chronic bronchitis ([facility]) 07/26/2016 Closed skull fracture ([facility]) 1994 [facility], [facility] Coronary artery disease DDD (degenerative disc disease), cervical Endometriosis 2007 Essential hypertension 12/14/2015 GERD (gastroesophageal reflux disease) 03/13/2019 History of colon polyps History of gastric ulcer 12/14/2015 HLD (hyperlipidemia) Injury of left facial nerve 1994 PAD (peripheral artery disease) ([facility]) 09/28/2019 Recurrent major depression in partial remission ([facility]) 12/14/2015 S/P drug eluting coronary stent placement [...] TOTAL FACIAL NERVE DECOMPRESSION &/REPAIR Left 1989 [facility] ALLERGIES Patient has no known allergies. [...] 2 tablets by mouth daily at bedtime. uoitxccrtji-lwhiecsgz-bcytdcii (TRELEGY ELLIPTA) 200-62.5-25 mcg inhalation powder Inhale [...] F33.41 Stable 7. Coronary artery disease involving [place] coronary artery of [place] heart without angina pectoris- ICD9: 414.01, ICD10: I25.10 Follow-up with cardiology Prescription instructions reviewed with patient as applicable. Potential red flag symptoms discussed with the patient. Reviewed appropriate action plan to take if red flag symptoms occur. Patient agreeable to treatment plan. Oly Smith APRN.CNP documented in this encounterSelect Medical Trihealth [facility] Hospital06-28-2023 Instructions* Patient Instructions* Oly Smith APRN.CNP - 05/08/2023 12:24 PM EDT [facility] dermatology [phone] documented in this encounterSelect Medical Trihealth Rehabilitation Hospital06-08-2023 NoteHNO ID: [id number] Author: Melissa Vital MA Service: ? Author Type: Channel Marketing Program Manager Type: Progress Notes Filed: 04/18/2023 10:01 AM [...] Melissa Vital MA April 18, 2023 9:59 [facility]06-06-2023 NotePatient Outreach (NETNAV) STEVEN KOENIG ([id number]) 1955 F Date Time Provider Department 04/16/23 [...] Bipolar affective disorder, currently active (HCC) - [id number] Last Billed 08/31/2022 F33.41 - Recurrent major depression in partial remission (HCC) - [id number] Last Billed 08/31/2022 Patient Identified by Name and : YES, via phone Outreach Outcome/Action Spoke to patient / parent / legal guardian: Patient will return the call or ask for return call Did you use a PCP flex slot to schedule this appointment? N/A Reason for Outreach HCC or suspected condition Payer: Payor: [employer]ASH [place] [employer] (P) / Plan: Dash Hudson HMO / Product Type: HMO / Care [...] Navigation Outreach [3910] Cmt: Navigator Kailash amaya [facility] gap outreach Prescriptions as of 04/18/2023 - isosorbide mononitrate ER (IMDUR) 30 mg 24 hr tablet TAKE 1 TABLET BY MOUTH EVERY DAY - predniSONE (DELTASONE) 10 mg tablet TAKE TWO DAILY FOR 5 DAYS THEN ONE DAILY FOR 10 DAYS - traZODone (DESYREL) 100 mg tablet Take 2 tablets by mouth daily at bedtime. - ldsqfbqalfx-ibtzrwtsy-mzoldfod (TRELEGY ELLIPTA) 200-62.5-25 mcg inhalation powder Inhale [...] cardiovascular exam [Z01.810] 09/28/201909/12 (more content not included)...[facility]06-06-2023 NoteHNO ID: [id number] Author: Melissa Vital MA Service: ? Author Type: Channel Marketing Program Manager Type: Progress Notes Filed: 04/16/2023 11:48 AM Note Text: POPULATION HEALTH NAVIGATION OUTREACH Action/FYI Spoke with patient. Patient states will call back later to schedule. Annual wellness/htn/HCC Declined my chart Will discuss AD with PCP Navigator Kailash maaya HCC gap outreach F31.9 - Bipolar affective disorder, currently active (HCC) - [id number] Last Billed 08/31/2022 F33.41 - Recurrent major depression in partial remission (HCC) - JPRDWP26 Last Billed 08/31/2022 Patient Identified by Name and : YES, via phone Outreach Outcome/Action Spoke to patient / parent / legal guardian: Patient will return the call or ask for return call Did you use a PCP flex slot to schedule this appointment? N/A Reason for Outreach HCC or suspected condition Payer: Payor: KAILASH pic5 AND [employer] / Plan: KAILASH [employer] HMO / Product Type: HMO / Care Gap Reviewed:: Annual Wellness visit Controlling Blood Pressure Reminder: Reminder note to check Health Maintenance for items below Health Maintenance items due: BONE DENSITY Never done BP CONTROLLED (<130/80) due on 01/06/2021 LDL CHOLESTEROL due on 09/27/2022 ADVANCE DIRECTIVE DISCUSSION Never done Navigation Signature: Melissa Vital MA April 16, 2023 11:39 [facility]06-06-2023 History of Present illness Narrative* Melissa Vital MA - 04/16/2023 11:39 AM EDT POPULATION HEALTH NAVIGATION OUTREACH Action/FYI Spoke with patient. Patient states will call back later to schedule. Annual wellness/htn/HCC Declined my chart Will discuss AD with PCP Navigator Kailash amaya HCC gap outreach F31.9 - Bipolar affective disorder, currently active (HCC) - [id number] Last Billed 08/31/2022 F33.41 - Recurrent major depression in partial remission (HCC) - WBGRFU96 Last Billed 08/31/2022 Patient Identified by Name and : YES, via phone Outreach Outcome/Action Spoke to patient / parent / legal guardian: Patient will return the call or ask for return call Did you use a PCP flex slot to schedule this appointment? N/A Reason for Outreach HCC or suspected condition Payer: Payor: [employer]ASH [employer] (P) / Plan: KAILASH [employer] HMO / Product Type: HMO / Care Gap Reviewed:: Annual Wellness visit Controlling Blood Pressure Reminder: Reminder note to check Health Maintenance for items below Health Maintenance items due: BONE DENSITY Never done BP CONTROLLED (<130/80) due on 01/06/2021 LDL CHOLESTEROL due on 09/27/2022 ADVANCE DIRECTIVE DISCUSSION Never done Navigation Signature: Melissa Vital MA April 16, 2023 11:39 AM documented in this encounterSelect Medical [facility]health [facility] Hospital05-23-2023 NoteHNO ID: [id number] Author: Doron Self DO Service: Vascular Surgery Author Type: Physician Type: Progress Notes Filed: 04/09/2023 5:57 PM Note Text: NAME: STEVEN KOENIG CLINIC NO: [id number] DATE OF SERVICE: 04/02/2023 Subjective: Elle is [...] concerns. Doron Self D.O. KB/089 Audio #: [id number] Date Dictated: 04/02/2023 08:47:00 Date Typed: 04/06/2023 05:15:49 Date Revised:[facility]05-23-2023 NoteHNO ID: [id number] Author: Doron Self, DO Service: ? Author Type: Physician Type: Progress Notes Filed: 04/02/2023 10:58 AM Note Text: This office note has been dictated. Doron Self, [facility]Ohio[facility]-19-2023 Miscellaneous Notes* Telephone Encounter - Doron [...] advise. Doron Navarrete LPN documented in this encounterSelect Medical [facility]health [facility] Hospital02-27-[address] Teague [facility] January 07, 2023 11:57am Note Date/Time January 07, 2023 11:47am [facility] Medical Records Department [address] [place] [address] Instructions for Home/Discharge Instructions 01/07/23 1143 MR#: [id number] Acct: [id number] Name: STEVEN KOENIG Rep #:[id number] : 1955 67 From: Siddhartha Taegue DO PCP: Dr. Ulises Hermosillo MD Status:A [...] can be placed): Home, Self Care 01/07/23 3915<Electronically signed by Siddhartha Teague DO>Siddhartha Teague DO CC: Dr. Linda Luque MD; Dr. Joel Sauer DO; Dr. Ulises Hermosillo MD ~ Signed [facility] Work Phone: [phone] Sauer [facility] January 06, 2023 12:31pm Note Date/Time January 06, 2023 7:53am [facility] Medical Records Department [address] [place] [address] Progress Note - Hospitalist 01/06/23 0749 MR#: [id number] Acct: [id number] Name: STEVEN KOENIG Rep #:[id number] : 1955 67 From: Joel Sauer DO PCP: Dr. Ulises Hermosillo MD Status:A DM IN Location: [place] [address] Reason for Visit Reason for Visit: Diagnoses [...] 01/03/23 10:58 AG (Rec: 01/03/23 10:58 AG [id number]) Nutrition Malnutrition Evidence of Malnutrition Exists Yes [...] to discharge. Charges/Coding Visit Charges Inpatient E&M: 19969 Subs Hosp L2 01/06/23 1231 <Electronically signed by Joel Sauer DO> Cosigner Signature (if applicable): CC: ~ Signed [facility] Work Phone: 1(103) 666-299402-26-[address] Luque [facility] January 06, 2023 3:54am Note Date/Time January 06, 2023 3:54am [facility] Medical Records Department [address] [place] [address] Progress Note - Hospitalist 01/06/23352 MR#: [id number] Acct: [id number] Name: STEVEN KOENIG Rep #:[id number] : 1955 67 From: Linda Luque MD PCP: Dr. Ulises Hermosillo MD Status:A DM IN Location: [place] [id number] Hospitalist Note Preliminary respiratory culture with strep pneumo, Rocephin added. 01/06/234 <Electronically signed by Linda Luque MD> Cosigner Signature (if applicable): CC: ~ Signed [facility] Work Phone: 1(403) 437-106702-25-[address] Sauer [facility] January 05, 2023 3:15pm Note Date/Time January 05, 2023 8:27am [facility] Medical Records Department [address] [place] [address] Progress Note - Hospitalist 01/05/2325 MR#: [id number] Acct: [id number] Name: STEVEN KOENIG Rep #:[id number] : 1955 67 From: Joel Sauer DO PCP: Dr. Ulises Hermosillo MD Status:A DM IN Location: [place] [address] Reason for Visit Reason for Visit: Diagnoses [...] 01/03/23 10:58 AG (Rec: 01/03/23 10:58 AG [id number]) Nutrition Malnutrition Evidence of Malnutrition Exists Yes [...] the . Charges/Coding Visit Charges Inpatient E&M: 13199 Subs Hosp L2 01/05/23 7734 <Electronically signed by Joel Sauer DO> Cosigner Signature (if applicable): CC: ~ Signed [facility] Work Phone: 1(813) 353-520302-24-[address] Sauer [facility] January 04, 2023 4:33pm Note Date/Time January 04, 2023 8:14am [facility] Medical Records Department [address] [place] [address] Progress Note - Hospitalist 01/04/23811 MR#: [id number] Acct: [id number] Name: STEVEN KOENIG Rep #:[id number] : 1955 67 From: Joel Sauer DO PCP: Dr. Ulises Hermosillo MD Status:A DM IN Location: [place] [address] Reason for Visit Reason for Visit: Diagnoses [...] 01/03/23 10:58 AG (Rec: 01/03/23 10:58 AG [id number]) Nutrition Malnutrition Evidence of Malnutrition Exists Yes [...] SCDs, Lovenox. Charges/Coding Visit Charges Inpatient E&M: 45868 Subs Hosp L2 01/04/23 1524 <Electronically signed [...] Cosigner Signature (if applicable): cc: ~* Signed [facility] Work Phone: 1(262) 873-119702-23-[address] Sauer [facility] January 03, 2023 3:30pm Note Date/Time January 03, 2023 8:33am [facility] Medical Records Department [address] [place] [address] Progress Note - Hospitalist 01/03/23828 MR#: [id number] Acct: [id number] Name: STEVEN KOENIG Rep #:[id number] : 1955 67 From: Joel Sauer DO PCP: Dr. Ulises Hermosillo MD Status:A DM IN Location: [place] [address] Reason for Visit Reason for Visit: Diagnoses [...] Clarity Clear, Urine pH 6.0, Ur Specific [place] 1.005, Urine Protein Negative, Urine Glucose (UA) [...] % (Auto) 50.1, Lymph % (Auto) 37.2, Apache % (Auto) 9.6, Eos % (Auto) 1.4, [...] 92.4 H, Lymph % (Auto) 5.4 L, [place] % (Auto) 0.9, Eos % (Auto) 0.0, [...] 21:10 EST Reading Location ID and State: [address] [place] [address] , Service support , Physical Exam Const [...] SCDs, Lovenox. Charges/Coding Visit Charges Inpatient E&M: 55101 Subs Hosp L2 01/03/23 1530 <Electronically signed by Joel Sauer DO> Cosigner Signature (if applicable): CC: ~ Signed [facility] Work Phone: 1(920) 996-385202-22-2023 History and physical note Author Dr. Luque [facility] January 02, 2023 9:37pm Note Date/Time January 02, 2023 9:19pm [facility] Medical Records Department [address] [place] [address] History & Physical Exam 01/02/232135 MR#: [id number] Acct: [id number] Name: STEVEN KOENIG Rep #:[id number] : [...] abuse, Tobacco use who presents to the [facility] ED on 01/02/23 with history of severalcomplaints [...] rhythm with no acute evidence of ischemia. [facility] Medical History Alcohol abuse Anxiety and [...] Clarity Clear, Urine pH 6.0, Ur Specific [place] 1.005, Urine Protein Negative, Urine Glucose (UA) [...] % (Auto) 50.1, Lymph % (Auto) 37.2, Apache % (Auto) 9.6, Eos % (Auto) 1.4, [...] 21:10 EST Reading Location ID and State: [facility] / [place] , Service support , Assessment & Plan Assessment/Plan (1) Chest pain: (2) COPD exacerbation: (3) Desire for detoxification: PLAN: Plan The patient is a 67 y/o F w/ PMHx: COPD, HTN, HLD, Depression and Anxiety, EtOH abuse, Tobacco use who presents to the [facility] ED on 01/02/23 with history of severalcomplaints [...] 76 minutes. Charges/Coding Visit Charges Inpatient E&M: 66335 Init Hosp L3 01/02/232136 <Electronically signed by Linda Luque MD>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 documented in this encounterSelect Medical [facility]11-09-2022 Miscellaneous Notes* Telephone Encounter - Nevin Horne Pss - 09/19/2022 10:02 AM EST Patient called to reschedule damir lab testing from 07/13. Unable to schedule, stated 09/11. Please place new orders and advise patient for scheduling. documented in this encounterSelect Medical [facility]10-26-2022 History of Present illness Narrative* Ulises [...] Hypertension Recurrent Major Depression in Partial Remission ([facility]) Bipolar Affective Disorder, Currently Active ([facility]) History of Alcohol Abuse Chronic bronchitis ([facility]) Spinal Stenosis, Lumbar Region Without Neurogenic Claudication Radiculopathy, Lumbar Region Smoker Gerd (Gastroesophageal Reflux Disease) Seasonal Allergies Pad (Peripheral Artery Disease) ([facility]) Anxiety and Depression Prediabetes Chest Pain Other Chest Pain Stenosis of Carotid Artery Mixed Hyperlipidemia Abnormal Stress Test Dyspnea On Exertion Coronary Artery Disease Involving [place] Coronary Artery of [place] Heart Without Angina Pectoris Lung Nodule Current [...] 2 tablets by mouth daily at bedtime. nlxxschnfdk-pzuilyspp-dcgrdvty (TRELEGY ELLIPTA) 200-62.5-25 mcg inhalation powder Inhale [...] control Ulises Hermosillo MD documented in this encounterSelect Medical [facility]10-26-2022 Miscellaneous Notes* Telephone Encounter - Nena [...] No difficulty with drinking. Protocols used: Mouth Gjir-AHVFA-IB documented in this encounterSelect Medical [facility]10-21-2022 Instructions* Patient Instructions* Oly Smith APRN.CNP - 08/31/2022 1:46 PM EDT Increase venlafaxine to 225 mg, take 150 mg cap with 75 mg cap to equal 225 mg. Take lorazepam as needed. Please use sparingly, no refills. 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 She on Plavix and Imdur. She stopped taking ASA because she takes Excedrin a lot and thought it was the same thing. 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 Last appointment in May. [...] Anxiety 12/14/2015 Bipolar affective disorder, currently active ([facility]) 01/18/2016 Dr. Angie Jones, [facility] Chronic bronchitis ([facility]) 07/26/2016 Closed skull fracture ([facility]) 1994 [facility], [facility] Coronary artery disease DDD (degenerative disc disease), cervical Endometriosis 2007 Essential hypertension 12/14/2015 GERD (gastroesophageal reflux disease) 03/13/2019 History of colon polyps History of gastric ulcer 12/14/2015 HLD (hyperlipidemia) Injury of left facial nerve 1994 PAD (peripheral artery disease) ([facility]) 09/28/2019 Recurrent major depression in partial remission ([facility]) 12/14/2015 S/P drug eluting coronary stent placement [...] TOTAL FACIAL NERVE DECOMPRESSION &/REPAIR Left 1989 [facility] ALLERGIES Patient has no known allergies. MEDICATIONS traZODone (DESYREL) 100 mg tablet^Take 2 tablets by mouth daily at bedtime.^Disp: 60 tablet^Rfl: 5 osjvapjfdgd-quxseiohh-jyadwbfe (TRELEGY ELLIPTA) 200-62.5-25 mcg inhalation powder^Inhale 1 [...] MG TABLET 5. Coronary artery disease involving [place] coronary artery of [place] heart without angina pectoris- ICD9: 414.01, ICD10: [...] CT in July. Follow-up with lung cancer coding specialist home health as advised 10. Screening for osteoporosis - ICD9: V82.81, ICD10: Z13.820 - DXA-AXIAL SKELETON 11. Asymptomatic menopause - ICD9: V49.81, ICD10: Z78.0 - DXA-AXIAL SKELETON Prescription instructions reviewed with patient as applicable. Potential red flag symptoms discussed with the patient. Reviewed appropriate action plan to take if red flag symptoms occur. Patient agreeable to treatment plan. Oly Smith APRN.CNP documented in this encounterSelect Medical [facility]10-06-2022 Miscellaneous Notes* Telephone Encounter - Ulises [...] to attend he can contact them at [phone] Option 3 to arrange. Nena Dozier RN documented in this encounterSelect Medical [facility]09-22-2022 Miscellaneous Notes* Telephone Encounter - Nevin Smith - 08/02/2022 12:39 PM EDT Please call patient to schedule testing prior to appt on 08/14/2022 Thank you documented in this encounterSelect Medical [facility]09-20-2022 Instructions* Patient Instructions* Karly Garcia APRN.CNP [...] please feel free to contact me at [phone]. Karly Garcia APRN.HOME ENERGY CONSULTANT documented in this encounterSelect Medical [facility]09-20-2022 History of Present illness Narrative* Karly [...] daily. Per her last OV with her food service tray attendant, Symbicort was advised to be discontinued as Trelegy was added on. Activity: Does light house work but has to stop in between chores to catch her breath. Gets SOB with showering or with walking from her bedroom to her kitchen. The patient does not require assistancewith normal activities of daily living. Modified Medical Research [place] Dyspnea Scale (MMRC) I stop for breath after walking about 100 yards or after a few minutes on level ground 3 History of respiratory exposures include: Occupational: None Environmental: Second had smoke exposure as a child Father and mother had lung cancer Past Medical History: PAST MEDICAL HISTORY Diagnosis Date Acute pancreatitis 2010 Anisha Cruz Alcohol use disorder 01/18/2016 Dr. Angie Jones, [facility] Anxiety 12/14/2015 Bipolar affective disorder, currently active ([facility]) 01/18/2016 Dr. Angie Jones, [facility] Chronic bronchitis ([facility]) 07/26/2016 Closed skull fracture ([facility]) 1994 [facility], [facility] Coronary artery disease DDD (degenerative disc disease), cervical Endometriosis 2007 Essential hypertension 12/14/2015 GERD (gastroesophageal reflux disease) 03/13/2019 History of colon polyps History of gastric ulcer 12/14/2015 HLD (hyperlipidemia) Injury of left facial nerve 1994 PAD (peripheral artery disease) ([facility]) 09/28/2019 Recurrent major depression in partial remission ([facility]) 12/14/2015 S/P drug eluting coronary stent placement [...] TOTAL FACIAL NERVE DECOMPRESSION &/REPAIR Left 1989 [facility] Family Hx: FAMILY HISTORY Problem Relation [...] which included preparing to see the patient, xnmb-ab-ictd patient care, completing clinical documentation, obtaining and/or [...] are noted in bold/italics. Signature: Nicole Kenny APRN.HOME ENERGY CONSULTANT Date: 07/31/2022 Time: 4:53 PM documented in this encounterSelect Medical [facility]09-15-2022 NoteHNO ID: [id number] Author: YASSINE Hatch Service: Radiology Author Type: [...] BY: YASSINE Hatch July 26, 2022 4:24 PMMount Carmel Health [id number] Miscellaneous Notes* Telephone Encounter - Saranya Link [...] daily at bedtime. Authorizing Provider: DAT RODNEY rpeyfyhctlg-yfjcbyagu-kkdhxmil (TRELEGY ELLIPTA) 200-62.5-25 mcg inhalation powder 60 [...] pcp 05/11/22. Next appt is 08/13/22 with SUPERVISOR SAMPLE. * Telephone Encounter - Arlen Austin - 07/20/2022 11:25 AM EDT Patient has been identified by Yesname and date of : Requested Prescriptions Pending Prescriptions Disp Refills traZODone (DESYREL) 100 mg tablet 60 tablet 0 Sig: Take 2 tablets by mouth daily at bedtime. tzkeapaerby-yzgfjloiq-bbqzlduj (TRELEGY ELLIPTA) 200-62.5-25 mcg inhalation powder 60 Each 11 Sig: Inhale 1 Puff as instructed once daily. venlafaxine ER (EFFEXOR XR) 150 mg 24 hr capsule 90 capsule 0 Sig: Take 1 capsule by mouth once daily. RX INSTRUCTIONS: Patient aware RX will be sent to pharmacy. No need to notify patient. Arlen Avalos Pss documented in this encounterSelect Medical [facility]09-06-2022 Miscellaneous Notes* Telephone Encounter - Hyacinth Austin - 07/17/2022 2:02 PM EDT Left message to advise appointment with Dr Self has been moved up to August 4ht @ 10:15 in the [place] . * Telephone Encounter - Maritza De Los Santos - 07/13/2022 3:52 PM EDT Patient called back in regard to message left for her. Informed her that she needs to complete testing first before she has appt with Dr. Self. She verbalized understanding. I informed her of when her testing is on 07/26/2022 in [place] and rescheduled her appt with Dr. Self in [place] on 09/11/2022 since that was the soonest [...] her right leg. The soonest testing appt linden has available is 07/25/22. Patient is tentatively scheduled on thatday. Appt needs to be rescheduled. Discussed with patient she could come for the visit on 07/17/22 howeverthe testing is necessary to see if there is anything new going on since her last scan. Left patient a voicemail with this information, advised she could call the office for other appt options in [place]. documented in this [facility]08-29-2022 Procedure note* ASHLEY Cage - 07/09/2022 [...] walker used for stability. documented [facility] this [facility]08-29-2022 History of Present illness Narrative* ASHLEY Cage - 07/09/2022 3:29 PM EDT PULM FUNCTION SMARTBLOCK: Provider: Margaret Kasper MD Assisting Tech: ASHLEY Cage Oximetry - Ambulation: [address] [facility]08-26-2022 Miscellaneous Notes* Telephone Encounter - Margaret Kasper MD - 07/06/2022 11:29 AM EDT Order for oximetry documented [facility] this [facility]08-04-2022 Miscellaneous Notes* Telephone Encounter - Irena [...] notify patient. Cailin Austin documented in this encounterSelect [facility]07-27-2022 History of Present illness Narrative* Margaret [...] asthma since teenage, COPD, recently discharged from [facility] where she was treated for COPD [...] and relieved by inhalers Recent hospital admissions: [facility] in [place] Medications: Symbicort, albuterol Most recent Radiology Most [...] No significant exposure Silica: No significant exposure [place]: No significant exposure Mold: No significant exposure Hot tub: No significant exposure Fumes: No significant exposure Metal dust: No significant exposure Beryllium: No significant exposure Dust: No significant exposure Medications: No relevant exposure for interstitial lung diseases PAST MEDICAL HISTORY Diagnosis Date Acute pancreatitis 2010 [facility] Alcohol use disorder 01/18[facility]2016 [facility] Anxiety 12/14/2015 Bipolar affective disorder, currently active ([facility]) 01/18/2016 [facility] Chronic bronchitis ([facility]) 07/26/2016 Closed skull fracture ([facility]) 1994 [facility], [facility] Coronary artery disease DDD (degenerative disc disease), cervical Endometriosis 2007 Essential hypertension 12/14/2015 GERD (gastroesophageal reflux disease) 03/13/2019 History of colon polyps History of gastric ulcer 12/14/2015 HLD (hyperlipidemia) Injury of left facial nerve 1994 PAD (peripheral artery disease) ([facility]) 09/28/2019 Recurrent major depression in partial remission ([facility]) 12/14/2015 S/P drug eluting coronary stent placement [...] TOTAL FACIAL NERVE DECOMPRESSION &/REPAIR Left 1989 [facility] FAMILY HISTORY Problem Relation Age of [...] Take 1 tablet by mouth once daily. jdfbxqmtntw-qefjrcwco-smaxbevh (TRELEGY ELLIPTA) 200-62.5-25 mcg inhalation powder Inhale [...] 400 QTC Calculation (Bazett) 450 Calculated P Admire 82 Calculated R Admire 65 Calculated T Admire 69 Impression NORMAL SINUS RHYTHM NORMAL ECG Confirmed by DYLAN ROTH M.D. ([id number]) on 10/23/2021 11:14:32 AM Recent Results (from the past 49326 hour(s)) ECHO Collection Time: 05/21/22 3:26 PM [...] disease counseling. Margaret Kasper MD Staff, Respiratory [place] [facility] CC: MD Zoya Jameson, Nicole Rojas, * documented in this encounterSelect Medical [facility]07-27-2022 History of Present illness Narrative* Paco Miguel RRT - 06/06/2022 9:47 AM EDT PULM FUNCTION SMARTBLOCK: Provider: Margaret Kasper MD Assisting Tech: Paco Miguel, ROBERT Spirometry w/BD: 1 DLCO: 1 documented in this encounterSelect Medical [facility]07-25-2022 Miscellaneous Notes* Telephone Encounter - Ranulfo Blackman Ma - 06/04/2022 12:50 PM EDT New order printed and faxed. Ranulfo Blackman Ma * Telephone Encounter - Oly Smith APRN.CNP - 06/04/2022 11:45 AM EDT See phone note from 05/31, this was faxed and then re faxed on 06/04 Oly Smith APRN.LINDA * Telephone Encounter - Jaylyn Caceres RN - 06/04/2022 10:07 AM EDT [facility] for the Aerochamber spacer, electronically signed by [employer] Observer Helper. States she cannot accept this. Needs an actual prescription with name, addressand signature of provider. Please send actual prescription. Fax number [phone]. documented in this encounterSelect Medical [facility]07-22-2022 Miscellaneous Notes* Telephone Encounter - Ranulfo [...] be sent for inhaler spacer? Pharmacy is [facility]. See Message below in regards to portable oxygen tank. Please review and advise, Christina Franco RN * Telephone Encounter - Christina Franco RN - 05/31/2022 11:07 AM EDT Patient calls and is asking if provider can write orders for patient to have a smaller portable oxygen tank so it is easier for her to go places. She gets current supplies from [facility]. Please review and advise, Christina Franco RN documented in this encounterSelect Medical [facility]07-20-2022 Miscellaneous Notes* Addendum Note - Nicole Kenny APRN.CNP - 05/30/2022 9:06 AM EDT Addended by: NICOLE KENNY on: 05/30/2022 09:06 AM Modules accepted: Orders documented in this encounterSelect Medical [facility]07-19-2022 Miscellaneous Notes* Telephone Encounter - Tracy Alan LPN - 05/29/2022 7:04 AM EDT Patient's request for medication is as follows: Pending Prescriptions Disp Refills AMLODIPINE 10 MG TABLET 90 tablet 3 Sig: TAKE 1 TABLET BY MOUTH EVERY DAY BECKY: Yes Last seen 12/04/2021 in [place]. Follow up scheduled for 11/19/2022. Prescription(s) as above. Please process accordingly. Tracy Alan LPN documented in this encounterSelect Medical [facility]07-15-2022 Miscellaneous Notes* Telephone Encounter - Ranulfo [...] to the pharmacy. Please call patient at: [phone]. Telma Austin documented in this encounterSelect Medical [facility]07-14-2022 Miscellaneous Notes* Telephone Encounter - Manuela Austin - 05/24/2022 10:23 AM EDT Patient returned call and was notified. * Telephone Encounter - Shanelel Toribio RN - 05/23/2022 4:51 PM EDT [...] valve disease. Thank you! documented in this encounterSelect Medical [facility]07-12-2022 Miscellaneous Notes* Result QuickNote - Tracy Ramires APRN.CNP - 05/22/2022 7:41 AM EDT Please call patient and notify her echocardiogram reveals stable LV function and no significant valve disease. Thank you! documented in this encounterSelect Medical [facility]07-01-2022 Instructions* Patient Instructions* Ulises Hermosillo MD - 05/11/2022 2:14 PM EDT FASTING BLOOD WORK IN 3 MONTHS. documented in this encounterSelect Medical [facility]07-01-2022 History of Present illness Narrative* Ulises [...] Hypertension Recurrent Major Depression in Partial Remission ([facility]) Bipolar Affective Disorder, Currently Active ([facility]) History of Alcohol Abuse Chronic bronchitis ([facility]) Spinal Stenosis, Lumbar Region Without Neurogenic Claudication Radiculopathy, Lumbar Region Smoker Gerd (Gastroesophageal Reflux Disease) Seasonal Allergies Pad (Peripheral Artery Disease) ([facility]) Anxiety and Depression Prediabetes Chest Pain Other Chest Pain Stenosis of Carotid Artery Mixed Hyperlipidemia Abnormal Stress Test Dyspnea On Exertion Coronary Artery Disease Involving [place] Coronary Artery of [place] Heart Without Angina Pectoris Social History Tobacco [...] BASIC Ulises Hermosillo MD documented in this encounterSelect Medical [facility]06-27-2022 Miscellaneous Notes* Telephone Encounter - Ranulfo [...] notify patient. Luci Austin documented in this encounterSelect Medical [facility]06-25-2022 Hospital Discharge instructions Patient Education 05/05/2022 [...] Follow these instructions at home: Medicines Take pnxw-yxh-xxkodwe and prescription medicines (inhaled or pills) only [...] 08/07/2006 Document Revised: 10/10/2018 Document Reviewed: 12/02/2017 [employer] Patient Education 2020 [employer] Follow Up Care 05/02/2022 09:30:28 [facility] Address: When: Unknown Comments:[facility] will provide your home oxygen and equipment. Call them when you arrive home and they will deliver your oxygen concentrator to you. Their number is [phone]. With:ULISES HERMOSILLO MD Address: [address] [place] [address]- When:05/11/2022 13:40:00 Comments:The appointment on 05/07 has been moved to 05/11 @1:40 P.M to be with Dr. Hermosillo [facility] 06-22-2022 Evaluation + Plan noteExtracted from: Title:History [...] confirmed cardiac medications in addition to Plavix. [facility] 06-22-2022 SARS-CoV-2 (COVID-19) RNA IVANA+probe Ql (Nph) Negative (05/02/22 4:25 AM)AO Auto Urine [id number] Instructions* Patient Instructions* Tracy Ramires APRN.HOME ENERGY CONSULTANT - 04/30/2022 3:57 PM EDT Images from [...] the health of your heart. Developed by [employer]. Published by [employer]. Copyright 2014 [employer] and/or one of its subsidiaries. All rights reserved. documented in this encounterSelect [facility]06-20-2022 History of Present illness Narrative* Tracy [...] Alcohol use disorder 01/18/2016 Dr. Angie Jones, [facility] Anxiety 12/14/2015 Bipolar affective disorder, currently active ([facility]) 01/18/2016 Dr. Angie Jones, [facility] Chronic bronchitis ([facility]) 07/26/2016 Closed skull fracture ([facility]) 1994 [facility], [facility] Coronary artery disease DDD (degenerative disc disease), cervical Endometriosis 2007 Essential hypertension 12/14/2015 GERD (gastroesophageal reflux disease) 03/13/2019 History of colon polyps History of gastric ulcer 12/14/2015 HLD (hyperlipidemia) Injury of left facial nerve 1994 PAD (peripheral artery disease) ([facility]) 09/28/2019 Recurrent major depression in partial remission ([facility]) 12/14/2015 S/P drug eluting coronary stent placement [...] TOTAL FACIAL NERVE DECOMPRESSION &/REPAIR Left 1989 [facility] FAMILY HISTORY Problem Relation Age of [...] injection (DEFINITY) INTRAVENOUS DIRECTED PRN Tracy Ramires, TEACHER ADULT EDUCATION.HOME ENERGY CONSULTANT sodium chloride 0.9 % (flush) 10 mL (BD POSIFLUSH) 10 mL INTRAVENOUS DIRECTED PRN Tracy Ramires, TEACHER ADULT EDUCATION.HOME ENERGY CONSULTANT perflutren lipid microspheres 1.3 mL in NaCl (PF) 0.9% 10 mL injection (DEFINITY) INTRAVENOUS DIRECTED PRN Tracy Ramires, TEACHER ADULT EDUCATION.HOME ENERGY CONSULTANT sodium chloride 0.9 % (flush) 10 mL (BD POSIFLUSH) 10 mL INTRAVENOUS DIRECTED PRN Tracy Ramires, TEACHER ADULT EDUCATION.HOME ENERGY CONSULTANT Review of Systems Constitutional: Negative for chills, [...] LAD portion of the stent 3.7mm, with mormon of blood flow, no residual stenosis. Assessment [...] 30, 2022, 3:36 PM documented in this encounterSelect Medical [facility]05-24-2022 Miscellaneous Notes* Telephone Encounter - Jasmine Ramos LPN - 04/03/2022 10:00 AM EDT Last see pcp SUPERVISOR SAMPLE 02/14/21. Next appt with SUPERVISOR SAMPLE 05/04/22. * Telephone Encounter - Cailin Simons [...] notify patient. Cailin Austin documented in this encounterSelect Medical Trihealth [facility] Hospital05-03-2022 Instructions* Patient Instructions* Nicole Kenny APRN.HOME ENERGY CONSULTANT - 03/13/2022 2:44 PM EDT Cigarette Logs [...] candy are also excellent oral substitutes. Phone [phone] ([phone]) as additional resource. CT Lung Screen Results [...] to endocrinology. Others Lung Cancer Screening hotline: [phone] Lung Cancer Screening [phone] Billing Questions: or [email or web address] Lung Cancer Screening Team: Linda Meyer CNP; Crystal Kenny CNP; Eri Cheung CNP; Agata Cruz CNP, Naz Shah PA-C: [phone] Bouchra Cuenca PA-C documented in this encounterSelect Medical Trihealth [facility] Hospital05-03-2022 History of Present illness Narrative* Nicole Kenny, TEACHER ADULT EDUCATION.HOME ENERGY CONSULTANT - 03/13/2022 2:10 PM EDT Images from [...] 50% of waking hrs. Modified Medical Research [place] Dyspnea Scale (MMRC) On level ground I [...] Alcohol use disorder 01/18/2016 Dr. Angie Jones, [facility] Anxiety 12/14/2015 Bipolar affective disorder, currently active ([facility]) 01/18/2016 Dr. Angie Jones, [facility] Chronic bronchitis ([facility]) 07/26/2016 Closed skull fracture ([facility]) 1994 [facility], [facility] Coronary artery disease DDD (degenerative disc disease), cervical Endometriosis 2007 Essential hypertension 12/14/2015 GERD (gastroesophageal reflux disease) 03/13/2019 History of colon polyps History of gastric ulcer 12/14/2015 HLD (hyperlipidemia) Injury of left facial nerve 1994 PAD (peripheral artery disease) ([facility]) 09/28/2019 Recurrent major depression in partial remission ([facility]) 12/14/2015 S/P drug eluting coronary stent placement [...] TOTAL FACIAL NERVE DECOMPRESSION &/REPAIR Left 1989 [facility] FAMILY HISTORY Problem Relation Age of [...] Date(s) Administered COVID-19 vaccine, age 12+ yr ([employer]) 11/21/2021 Influenza Seasonal Inj Quad Age 6 Mo - 64 Yrs 01/06/2020 Pneumovax 04/21/2018 influenza, high-dose, quadrivalent vaccine (FLUZONE HIGH DOSE QUADRIVALENT) 08/23/2020 Colonoscopy: 04/03/2017 Mammogram: DATA REVIEW I have directly visualized the testing documented: Prior Imaging: CT: Yes Year 2020 Abnormal Done at [facility] 01/2021 CXR: Yes 2020 Abnormal Nonspecific prominence [...] risk for lung cancer: 23.1 % Source: [employer] [email or web address] I have determined that the patient is [...] candy are also excellent oral substitutes. Phone [phone] ([phone]) as additional resource. The medical conditions adversely [...] which included preparing to see the patient, vijb-cx-rvql patient care, completing clinical documentation, obtaining and/or reviewing separately obtained history, performing a medically appropriate examination, counseling and educating the pat ient/family/caregiver, ordering medications, tests, or procedures and communicating results to the patient/family/caregiver. Nicole Kenny APRN.HOME ENERGY CONSULTANT NPI #: March 13, 2022 2:10 PM documented in this encounterSelect Medical Trihealth [facility] Hospital04-21-2022 Miscellaneous Notes* Telephone Encounter - Joyce [...] notify patient. Isadora Anglin documented in this encounterSelect Medical Trihealth Rehabilitation Hospital11-30-2021 NoteHNO ID: [id number] Author: RT Hiral(R) Service: Radiology Author Type: [...] BY: RT Hiral(R) October 10, 2021 11:15 [id number] NoteHNO ID: [id number] Author: Tracy Ramires APRN.HOME ENERGY CONSULTANT Service: ? Author Type: Nurse Practitioner Type: [...] seen by myself on 06/12/2021 at our [place] office. Stress testing was done d/t symptoms [...] 12/14/2015 - Bipolar affective disorder, currently active ([facility]) 01/18/2016 [facility] - Chronic bronchitis (HCC) 07/26/2016 - Closed skull fracture ([facility]) 1994 [facility], [facility] - Coronary artery disease - DDD (degenerative disc disease), cervical - Endometriosis 2007 - Essential hypertension 12/14/2015 - GERD (gastroesophageal reflux disease) 03/13/2019 - History of colon polyps - History of gastric ulcer 12/14/2015 - HLD (hyperlipidemia) - Injury of left facial nerve 1994 - PAD (peripheral artery disease) ([facility]) 09/28/2019 - Recurrent major depression in partial remission ([facility]) 12/14/2015 - S/P drug eluting coronary stent [...] 0 - camron (more content not included)...[facility]10-04-2021 Note HNO ID: [id number] Author: MAISHA Alicea Service: Radiology Author Type: Clinical Creative Project Manager Type: Progress Notes Filed: 08/14/2021 4:04 [...] POST EXAM PIV STATUS: Discontinued PROCEDURE TYPE: HI Stress: 12.6mCi [id number] was administered IV for Rest Imaging at 13:45 by MAISHA Alicea. 30.5 mCi [id number]-[id number] was administered IV for Stress Imaging at 15:40 by MAISHA Alicea. PATIENT DISCHARGED TO: Ambulatory patient, left [place] department area. A Diagnostic radioactive procedure has taken place, with no further precautions necessary other than routine body substance precautions. More information regarding radiation safety can be found using this link: [email or web address] SIGNATURE: MAISHA Alicea PATIENT NAME: Steven Koenig DATE: August 14, 2021 TIME: 4:03 PM P[facility]CON[phone] History of Present illness Narrative* Carol Godinez [...] 27, 2021 10:19 AM documented in this encounterSelect Medical [facility] Hospital03-19-2021 History of Present illness Narrative* Carol [...] 27, 2021 10:18 AM documented in this encounterSelect Medical [facility] Hospital08-27-2020 History of Past illness Narrative* Problem [...] of this encounter (statuses as of 03/01/2022) [facility] of Past illness Narrative* Problem [...] of this encounter (statuses as of 03/13/2022) [facility] of Past illness Narrative* Problem [...] of this encounter (statuses as of 03/23/2022) [facility] of Past illness Narrative* Problem [...] of this encounter (statuses as of 04/03/2022) [facility] of Past illness Narrative* Problem [...] of this encounter (statuses as of 05/03/2022) [facility] of Past illness Narrative* Problem [...] of this encounter (statuses as of 05/07/2022) [facility] of Past illness Narrative* Problem [...] of this encounter (statuses as of 05/11/2022) [facility] of Past illness Narrative* Problem [...] of this encounter (statuses as of 05/23/2022) [facility] of Past illness Narrative* Problem Noted Date Resolved Date Asthma 07/07/2020 07/07/2020 Hypomagnesemia 10/22/2019 10/23/2019 Last Assessment & Plan[place] [facility] Preop cardiovascular exam 09/28/20192018 Precordial pain, [...] of this encounter (statuses as of 05/24/2022) [facility] of Past illness Narrative* Problem [...] of this encounter (statuses as of 05/25/2022) [facility] Narrative* Problem [...] of this encounter (statuses as of 05/29/2022) [facility] Narrative* Problem [...] of this encounter (statuses as of 05/30/2022) [facility] Narrative* Problem [...] of this encounter (statuses as of 05/30/2022) [facility] Narrative* Problem [...] of this encounter (statuses as of 06/01/2022) [facility] illness Narrative* Problem [...] of this encounter (statuses as of 06/04/2022) [facility] Narrative* Problem [...] of this encounter (statuses as of 06/06/2022) [facility] Narrative* Problem [...] of this encounter (statuses as of 06/06/2022) [facility] illness Narrative* Problem [...] of this encounter (statuses as of 06/15/2022) [facility] illness Narrative* Problem [...] of this encounter (statuses as of 07/06/2022) [facility] Narrative* Problem [...] of this encounter (statuses as of 07/09/2022) [facility] Narrative* Problem [...] of this encounter (statuses as of 07/18/2022) [facility] Narrative* Problem [...] of this encounter (statuses as of 07/24/2022) [facility] Narrative* Problem [...] of this encounter (statuses as of 07/31/2022) [facility] Narrative* Problem [...] of this encounter (statuses as of 08/10/2022) [facility] Narrative* Problem [...] of this encounter (statuses as of 08/16/2022) [facility] Narrative* Problem [...] of this encounter (statuses as of 08/31/2022) [facility] Narrative* Problem [...] of this encounter (statuses as of 09/05/2022) [facility] Narrative* Problem [...] of this encounter (statuses as of 09/06/2022) [facility] Narrative* Problem [...] of this encounter (statuses as of 09/24/2022) [facility] Narrative* Problem [...] of this encounter (statuses as of 09/30/2022) [facility] Narrative* Problem [...] of this encounter (statuses as of 10/02/2022) [facility] Narrative* Problem [...] of this encounter (statuses as of 11/26/2022) [facility] Narrative* Problem [...] of this encounter (statuses as of 12/15/2022) [facility] Narrative* Problem [...] of this encounter (statuses as of 01/01/2023) [facility] Narrative* Problem [...] of this encounter (statuses as of 01/01/2023) [facility] Narrative* Problem [...] of this encounter (statuses as of 02/27/2023) [facility] Narrative* Problem [...] of this encounter (statuses as of 04/16/2023) [facility] Narrative* Problem [...] of this encounter (statuses as of 05/09/2023) [facility] Narrative* Problem [...] of this encounter (statuses as of 05/09/2023) [facility] Narrative* Problem [...] of this encounter (statuses as of 05/14/2023) [facility] Narrative* Problem [...] of this encounter (statuses as of 05/28/2023) [facility] Narrative* Problem [...] of this encounter (statuses as of 06/07/2023) [facility] Narrative* Problem [...] of this encounter (statuses as of 06/11/2023) [facility] Narrative* Problem [...] of this encounter (statuses as of 06/13/2023) [facility] Narrative* Problem [...] of this encounter (statuses as of 06/14/2023) [facility] Narrative* Problem [...] of this encounter (statuses as of 09/26/2023) [facility] Narrative* Problem [...] of this encounter (statuses as of 10/18/2023) [facility] Narrative* Problem [...] of this encounter (statuses as of 12/24/2023) [facility] Narrative* Problem [...] of this encounter (statuses as of 01/25/2024) [facility] HospitalEvaluation + Plan note No data available for this section [facility] Evaluation + Plan note Future Appointments Appointment Date:01/21/2025 02:00:00 PM Scheduled Provider:EMMA QUEEN DO Location:[facility] Appointment Type:PC OV [facility] Evaluation + Plan note Future Appointments Appointment Date:12/14/2024 08:00:00 AM Scheduled Provider: Location:[facility] Appointment Type:CV Procedure - Heart Lab/Hybrid OR Appointment Date:12/18/2024 02:00:00 PM Scheduled Provider: Location:[facility] Appointment Type:Echo - Echocardiogram Adult Appointment Date:01/18/2025 10:00:00 AM Scheduled Provider:CHRISTIN GONZALEZ Location:[facility] Appointment Type:CV OV Appointment Date:01/21/2025 02:00:00 PM Scheduled Provider:EMMA QUEEN DO Location:[facility] Appointment Type:PC OV [facility] Evaluation + Plan note Future Appointments Appointment Date:12/18/2024 02:00:00 PM Scheduled Provider: Location:[facility] Appointment Type:Echo - Echocardiogram Adult Appointment Date:01/18/2025 10:00:00 AM Scheduled Provider:CHRISTIN GONZALEZ Location:[facility] Appointment Type:CV OV Appointment Date:01/21/2025 02:00:00 PM Scheduled Provider:EMMA QUEEN DO Location:[facility] Appointment Type:PC OV Diagnostic Tests Pending * Complete Blood Count 12/14/24 [facility] Evaluation + Plan note Future Appointments Appointment Date:01/18/2025 10:00:00 AM Scheduled Provider:CHRISTIN GONZALEZ Location:[facility] Appointment Type:CV OV Appointment Date:01/21/2025 02:00:00 PM Scheduled Provider:EMMA QUEEN DO Location:[facility] Appointment Type:PC OV [facility] Evaluation + Plan note Future Appointments Appointment Date:07/30/2025 10:00:00 AM Scheduled Provider:EMMA QUEEN DO Location:[facility] Appointment Type:PC OV Diagnostic Tests Pending * Blood Culture (bacterial) 06/12/25 * Blood Culture (bacterial) 06/12/25 Future Scheduled Tests Laboratory* Basic Metabolic Panel 01/11/25 * N-Terminal proBNP 01/11/25 Radiology* MRI Cardiac Morphology & Func W+W/O Cont 02/23/25 * CT Low Dose Lung Cancer Screening (LDCT) 03/10/25 [facility] Evaluation note* Diagnosis Recurrent major depression in partial remission (HCC) Major depressive disorder, recurrent episode, in partial or unspecified remission documented in this encounter [facility]* Diagnosis Dyspnea on exertion- Primary Other dyspnea and respiratory abnormality Smoker Tobacco use disorder Encounter for screening for malignant neoplasm of lung documented in this encounter [facility]* Diagnosis Wheezing documented in this encounter [facility]* Diagnosis DIAZ (dyspnea on exertion)- Primary Other dyspnea and respiratory abnormality Essential hypertension Unspecified essential hypertension Coronary artery disease involving [place] coronary artery of [place] heart without angina pectoris Mixed hyperlipidemia Smoker Tobacco use disorder Stenosis of carotid artery, unspecified laterality documented in this encounter [facility]* Diagnosis Recurrent major depression in partial remission (HCC) Major depressive disorder, recurrent episode, in partial or unspecified remission documented in this encounter [facility] [place]* Diagnosis Chronic bronchitis, unspecified chronic bronchitis [...] vascular disease, unspecified documented in this encounter [facility] [place]* Diagnosis DIAZ (dyspnea on exertion) Other dyspnea and respiratory abnormality documented in this encounter [facility] [place]* Diagnosis Tobacco use disorder- Primary documented in this encounter [facility]* Diagnosis Smoker- Primary Tobacco use disorder Encounter for screening for malignant neoplasm of lung documented in this encounter [facility]* Diagnosis Chronic bronchitis, unspecified chronic bronchitis type (HCC)- Primary documented in this encounter [facility] [place]* Diagnosis Dyspnea on exertion Other dyspnea and respiratory abnormality documented in this encounter [facility] [place] [facility]* Diagnosis Asthma-COPD overlap syndrome (HCC)- Primary Wheezing Smoking Tobacco use disorder documented in this encounter [facility]* Diagnosis Recurrent major depression in partial remission (HCC) Major depressive disorder, recurrent episode, in partial or unspecified remission documented in this encounter [facility] [place]* Diagnosis SOB (shortness of breath)- Primary Shortness of breath [facility] Diagnosis SOB (shortness of breath) Shortness of breath documented in this encounter [facility] note* Diagnosis Recurrent major depression in partial remission (HCC) Major depressive disorder, recurrent episode, in partial or unspecified remission documented in this encounter [facility] note* Diagnosis Lung nodules- Primary Other nonspecific abnormal finding of lung field Current smoker Tobacco use disorder documented in this encounter [facility] note* Diagnosis Situational anxiety- Primary Other anxiety states Allergic conjunctivitis of both eyes Other chronic allergic conjunctivitis Recurrent major depression in partial remission (HCC) Major depressive disorder, recurrent episode, in partial or unspecified remission Essential hypertension Unspecified essential hypertension Coronary artery disease involving [place] coronary artery of [place] heart without angina pectoris Chronic bronchitis, unspecified chronic bronchitis type ([facility]) Encounter for immunization Need for other specified prophylactic vaccination against single bacterial disease Mixed hyperlipidemia Lung nodule Solitary pulmonary nodule Screening for osteoporosis Special screening for osteoporosis Asymptomatic menopause documented in this encounter [facility] note* Diagnosis Thrush (oral)- Primary Prediabetes Other abnormal glucose Essential hypertension Unspecified essential hypertension documented in this encounter [facility] note* Diagnosis Peripheral arterial disease (HCC)- Primary Peripheral vascular disease, unspecified [facility]* Diagnosis PAD (peripheral artery disease) ([facility]) Peripheral vascular disease, unspecified documented in this encounter [facility] note* Diagnosis Hemoptysis- Primary Hemoptysis, unspecified Stage 3 severe COPD by GOLD classification ([facility]) Cigarette smoker Tobacco use disorder documented in this encounter [facility] note* Diagnosis Alcohol withdrawal syndrome without complication (HCC)- Primary documented in this encounter [facility] note* Diagnosis Onset Date Resolution Status Alcohol intoxication acute Chest pain acute Desire for detoxification ac danya COPD exacerbation chronic [facility] Work Phone: Evaluation note* Diagnosis Onset Date Resolution Status Alcohol intoxication acute Chest pain acute Desire for detoxification ac danya Peripheral arterial disease acute Pneumococcal pneumonia acute Rash acute COPD exacerbation [facility] Work Phone: Evaluation note* Diagnosis Dehydration- Primary documented in this encounter [facility] Work Phone: Evaluation note* Diagnosis Chronic midline low back pain with sciatica, sciatica laterality unspecified- Primary Lesion of left ear Essential hypertension Unspecified essential hypertension Mixed hyperlipidemia Chronic bronchitis, unspecified chronic bronchitis type (HCC) Recurrent major depression in partial remission (HCC) Major depressive disorder, recurrent episode, in partial or unspecified remission Coronary artery disease involving [place] coronary artery of [place] heart without angina pectoris documented in this encounter [facility] note* Diagnosis Stage 3 severe COPD by GOLD classification ([facility])- Primary Cigarette smoker Tobacco use disorder Lung nodules Other nonspecific abnormal finding of lung field documented in this encounter [facility] note* Diagnosis Radiculopathy, lumbar region- Primary Thoracic or lumbosacral neuritis or radiculitis, unspecified Chronic midline low back pain with sciatica, sciatica laterality unspecified [facility]* Diagnosis Encounter for screening for lung cancer- Primary Tobacco use current documented in this [facility]* Diagnosis Essential hypertension Unspecified essential hypertension Recurrent major depression in partial remission (HCC) Major depressive disorder, recurrent episode, in partial or unspecified remission documented in this [facility]* Diagnosis Coronary artery disease involving [place] coronary artery of [place] heart without angina pectoris- Primary Wheezing Essential hypertension Unspecified essential hypertension Gastroesophageal reflux disease, unspecified whether esophagitis present Recurrent major depression in partial remission (HCC) Major depressive disorder, recurrent episode, in partial or unspecified remission documented [facility]* Diagnosis Wheezing documented in this encounter [facility] note* Diagnosis Wheezing Essential hypertension Unspecified essential hypertension Gastroesophageal reflux disease, unspecified whether esophagitis present Recurrent major depression in partial remission (HCC) Major depressive disorder, recurrent episode, in partial or unspecified remission documented in this encounter [facility] note* Diagnosis Wheezing documented in this encounter [facility] note* Diagnosis Pre-operative examination- Primary Preoperative examination, unspecified Primary osteoarthritis of right hip Primary localized osteoarthrosis, pelvic region and thigh Essential hypertension Unspecified essential hypertension Chronic bronchitis, unspecified chronic bronchitis type ([facility]) Smoker Tobacco use disorder Recurrent major depression in partial remission (HCC) Major depressive disorder, recurrent episode, in partial or unspecified remission Bipolar affective disorder, current episode mixed, current episode severity unspecified ([facility]) Gastroesophageal reflux disease, esophagitis presence not specified [...] Unspecified essential hypertension Coronary artery disease involving [place] coronary artery of [place] heart without angina pectoris Chronic bronchitis, unspecified chronic bronchitis type ([facility]) Encounter for immunization Need for other specified prophylactic vaccination against single bacterial disease Mixed hyperlipidemia Lung nodule Solitary pulmonary nodule Screening for osteoporosis Special screening for osteoporosis Asymptomatic menopause Chronic midline low back pain with sciatica, sciatica laterality unspecified [facility] Diagnosis Pre-operative examination- Primary Preoperative examination, unspecified Primary osteoarthritis of right hip Primary localized osteoarthrosis, pelvic region and thigh Essential hypertension Unspecified essential hypertension Chronic bronchitis, unspecified chronic bronchitis type ([facility]) Smoker Tobacco use disorder Recurrent major depression in partial remission (HCC) Major depressive disorder, recurrent episode, in partial or unspecified remission Bipolar affective disorder, current episode mixed, current episode severity unspecified (HCC) Gastroesophageal reflux disease, esophagitis presence not specified PAD (peripheral artery disease) ([facility])- Primary Peripheral vascular disease, unspecified PAD (peripheral artery disease) ([facility]) Peripheral vascular disease, unspecified Essential hypertension Unspecified essential hypertension Smoker Tobacco use disorder Chronic bronchitis, unspecified chronic bronchitis type (HCC) Smoker Tobacco use disorder Hypomagnesemia Disorders of magnesium metabolism Preoperative examination- Primary Preoperative examination, unspecified PAD (peripheral artery disease) ([facility]) Peripheral vascular disease, unspecified Essential hypertension Unspecified [...] Unspecified essential hypertension Coronary artery disease involving [place] coronary artery of [place] heart without angina pectoris Chronic bronchitis, unspecified chronic bronchitis type (HCC) Encounter for immunization Need for other specified prophylactic vaccination against single bacterial disease Mixed hyperlipidemia Lung nodule Solitary pulmonary nodule Screening for osteoporosis Special screening for osteoporosis Asymptomatic menopause Hemoptysis Hemoptysis, unspecified [facility] Diagnosis Pre-operative examination- Primary Preoperative [...] Unspecified essential hypertension Coronary artery disease involving [place] coronary artery of [place] heart without angina pectoris Chronic bronchitis, unspecified chronic bronchitis type (HCC) Encounter for immunization Need for other specified prophylactic vaccination against single bacterial disease Mixed hyperlipidemia Lung nodule Solitary pulmonary nodule Screening for osteoporosis Special screening for osteoporosis Asymptomatic menopause [facility] Author Dr. Lu[facility] January 02, 2023 9:37pm Note Date/Time January 02, 2023 9:19pm [facility] Medical Records Department [address] [place] [address] History & Physical Exam 01/02/232135 MR#: [id number] Acct: [id number] Name: STEVEN KOENIG Rep #:[id number] : [...] abuse, Tobacco use who presents to the [facility] ED on 01/02/23 with history of severalcomplaints [...] Clarity Clear, Urine pH 6.0, Ur Specific [place] 1.005, Urine Protein Negative, Urine Glucose (UA) [...] % (Auto) 50.1, Lymph % (Auto) 37.2, [place] % (Auto) 9.6, Eos % (Auto) 1.4, [...] 21:10 EST Reading Location ID and State: [facility] / [place] , Service support , Assessment & Plan Assessment/Plan (1) Chest pain: (2) COPD exacerbation: (3) Desire for detoxification: PLAN: Plan The patient is a 67 y/o F w/ PMHx: COPD, HTN, HLD, Depression and Anxiety, EtOH abuse, Tobacco use who presents to the [facility] ED on 01/02/23 with history of severalcomplaints [...] 76 minutes. Charges/Coding Visit Charges Inpatient E&M: 67675 Init Hosp L3 01/02/232136 <Electronically signed by Linda Luque MD> Cosigner Signature (if applicable): CC: Dr. Linda Luque MD; Dr. Ulises Hermosillo MD~ Signed [facility] Work Phone: Hospital Discharge instructions No data available for this section [facility] Note* Yolanda Gonzalez RN: PERFORM Event Display: [place] [facility] Patient Summary Authored Date: [id number] Discharge Instructions Thank you for allowing [place] to assist you with your healthcare needs. [...] MD When Within 2-4 days Where: [address] [place] [address]- Allergies NKA Medications Please ask your primary [...] may report side effects to FDA at 9-695-BVP-0931. What other drugs will affect budesonide and formoterol? Sometimes it is not safe to use certain medications at the same time. Some drugs can affect your blood levels of other drugs you take, which may increase side effects or make the medications less effective. Many drugs can affect budesonide and formoterol. This includes prescription and zpoz-ajm-nypctni medicines, vitamins, and herbal products. Not all [...] to ensure that the information provided by [employer]. ('[employer]') is accurate, up-to-date, and complete, but no guarantee is made to that effect. Drug information contained herein may be time sensitive. [employer] information has been compiled for use by healthcare practitioners and consumers in the [place] and therefore [employer] does not warrant that uses outside of the [place] are appropriate, unless specifically indicated otherwise. [employer]'s drug information does not endorse drugs, diagnose patients or recommend therapy. 5o9s drug information isan informational resource designed to [...] effective or appropriate for any given patient. [facility] does not assume any responsibility for any aspect of healthcare administered with the aid of information [facility] provides. The information contained herein is not intended to cover all possible uses, directions, precautions, warnings, drug interactions, allergic reactions, or adverse effects. If you have questions about the drugs you are taking, check with your doctor, nurse or pharmacist. Copyright 8552-3346 [employer]. Version: 9.02. Revision Date: 07/08/2019. prednisone (PRED [...] may report side effects to FDA at 7-410-MYM-8080. What other drugs will affect prednisone? Sometimes [...] may affect prednisone. This includes prescription and wxaj-rmt-ofvekka medicines, vitamins, and herbal products. Not all [...] to ensure that the information provided by [employer]. ('[employer]') is accurate, up-to-date, and complete, but no guarantee is made to that effect. Drug information contained herein may be time sensitive. [employer] information has been compiled for use by healthcare practitioners and consumers in the [place] and therefore [employer] does not warrant that uses outside of the [place] are appropriate, unless specifically indicated otherwise. [employer] drug information does not endorse drugs, diagnose patients or recommend therapy. [employer]o9s drug information isan informational resource designed to [...] effective or appropriate for any given patient. [facility] does not assume any responsibility for any aspect of healthcare administered with the aid of information [facility] provides. The information contained herein is not intended to cover all possible uses, directions, precautions, warnings, drug interactions, allergic reactions, or adverse effects. If you have questions about the drugs you are taking, check with your doctor, nurse or pharmacist. Copyright 5242-6972 [facility]. Version: 10. Revision Date: 02/05/2019. doxycycline (oral/injection) [...] or life-threatening conditions such as anthrax or Micanopy spotted fever. The benefit of treating a [...] may report side effects to FDA at 3-852-LQB-7991. What other drugs will affect doxycycline? Sometimes it is not safe to use certain medications at the same time. Some drugs can affect your blood levels of other drugs you take, which may increase side effects or make the medications less effective. Other drugs may affect doxycycline, including prescription and uave-cjx-vhiyezw medicines, vitamins, and herbal products. Tell your [...] to ensure that the information provided by [employer]. ('[employer]') is accurate, up-to-date, and complete, but no guarantee is made to that effect. Drug information contained herein may be time sensitive. [employer] information has been compiled for use by healthcare practitioners and consumers in the [place] and therefore [employer] does not warrant that uses outside of the [place] are appropriate, unless specifically indicated otherwise. [employer]s drug information does not endorse drugs, diagnose patients or recommend therapy. 5o9s drug information isan informational resource designed to [...] effective or appropriate for any given patient. [facility] does not assume any responsibility for any aspect of healthcare administered with the aid of information [facility] provides. The information contained herein is not intended to cover all possible uses, directions, precautions, warnings, drug interactions, allergic reactions, or adverse effects. If you have questions about the drugs you are taking, check with your doctor, nurse or pharmacist. Copyright 0278-9068 [employer]. Version: 21.04. Revision Date: 09/14/2020. Education Materials [...] your ankles gets worse Dizziness or weakness 0495-4755 [employer]. [address] [place] [address], [place] [address]. All rights reserved. This information is not intended as a substitute for professional medical care. Always follow yourhealthcare professional's instructions. Additional Information VACCINATE! IT SAVES LIVES! Members of the community who have not yet received the COVID-19 vaccine and would like to receive it can visit one of [facility] vaccine clinics. There are many vaccine clinic locations within the [facility]. For locations and available times, please visit [email or web address]. It is important to note that some COVID mobile vaccine clinics are held outdoors and may be canceled in rainy orstormy conditions. To learn more about pediatric vaccinations (ages 5-11), we invite you to visit the [facility] webpage. [email or web address] learn more about the COVID-19 vaccine, we invite you to visit the [place] website for a list of frequently asked questions. [email or web address] [facility] Patient Portal Access Instructions: Stay connected with your healthcare team and access your personal medical information anytime with the [facility] Patient Portal. If you would like a full copy of your medical records please contact the [facility] Medical Records Department Saturday through Saturday between 8a.m. and 4:30p.m. Please follow the directions below to access the portal: 1.Access the email account you provided upon registration to the hospital.2.Look for an invitation email from [facility].3.Open the email and access the invitation link: Accept Invitation to [facility]4.Fill in the required randle to create your account. Sign into [email or web address] with your username and password that you [...] you will allow to register on the [facility] Patient Portal for access to your information. You can also access the [facility] Patient Portal on the [employer]. Simply click on "Health Records" under "HealthData" [...] Call your local pharmacy or go to [email or web address] to find one close to you.3.Make use of household items: Use cat litter or old coffee grounds to dispose medications if other options arenot available. Mix your drugs with these household products, seal them in an airtight container andthrow it into the garbage. Call [facility]: [phone] to be sure your drugs can be [...] aware that I should contact my doctor. 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 Signature: Date/Time: Relationship to Patient: Witness Name/Signature: Date/Time: * ZINA GLOVER DO: SIGN, VERIFY Event Display: EKG [ED AO] - CV Authored Date: [id number] [facility] Progress note No data available for this section [facility] Reason for referral (narrative)* Outpatient Procedure (Routine) - Authorized Specialty Diagnoses / Procedures Referred By Contac t Referred To Contact [facility] Diagnoses DIAZ (dyspnea on exertion) Procedures ECHO ECHO TTHRC R-T 2D W/WOM-MODE COMPL SPEC&COLR D Tracy Ramires APRN.HOME ENERGY CONSULTANT [address] [facility] [address] [place] [address] [facility] [place] [address] [place] [address] Referral ID Status Reason Start Date Expiration Date Visits Requested Visits Authorized [id number] Authorized Auto-Generat ed Referral 04/30/2022 04/30/2023 1 1 [facility] for referral (narrative)* Outpatient Procedure (Routine) - Authorized Specialty Diagnoses / Procedures Referred By Contac t Referred To Contact [facility] Diagnoses SOB (shortness of breath) Procedures OXIMETRY WITH AMBULATION NONINVASIVE EAR/PULSE OXIMETRY MULTIPLE Margaret Atwood MD [address] [place] [address] [facility] [place] [address] [place] [address] Referral ID Status Reason Start Date Expiration Date Visits Requested Visits Authorized [id number] Authorized Auto-Generat ed Referral 07/06/2022 08/05/2023 1 1 [facility] for referral (narrative)* Outpatient Procedure (Routine) - Authorized Specialty Diagnoses / Procedures Referred By Contac t Referred To Contact [facility] [place] Diagnoses Peripheral arterial disease (HCC) Procedures PVR LEG SHERIN VAS LAB NON-INVASIVE PHYSIOLOGIC STUDY EXTREMITY 3 Doron Mahoney DO [address] [place] [address] [address] Referral ID Status Reason Start Date Expiration Date Visits Requested Visits Authorized [id number] Authorized Auto-Generat ed Referral 2 11/10/2022 1 1 [facility] for referral (narrative)* Outpatient Procedure (Routine) - Pending Review Specialty Diagnoses / Procedures Referred By Contac t Referred To Contact [facility] [place] Diagnoses PAD (peripheral artery disease) (HCC) Procedures PVR [facility] NON-INVASIVE PHYSIOLOGIC STUDY EXTREMITY 3 Doron Mahoney DO [address] [place] [address] [address] Referral ID Status Reason Start Date Expiration Date Visits Requested Visits Authorized [id number] Pending Review Auto-Generat ed Referral 2 10/02/2023 1 1 [facility] for referral (narrative)* Diagnostic Procedure Only (Routine) - Closed Specialty Diagnoses / Procedures Referred By Contac t Referred To Contact XR IMAGING Diagnoses Chronic midline low back pain with sciatica, sciatica laterality unspecified Procedures XR LUMBAR GENERAL 3V AP/LAT/L5-S1 RADEX SPINE LUMBOSACRAL 2/3 VIEWS Oly Smith APRN.HOME ENERGY CONSULTANT [address] [place] [address] Xr Imaging Referral ID Status Reason Start Date Expiration Date V isits Requested Visits Authorized [id number] Closed Auto-Generate d Referral 05/08/2023 06/06/2024 1 1 * Transition of Care (Routine) - Ref Not Required Specialty Diagnoses / Procedures Referred By Contac t Referred To Contact Dermatology Diagnoses Lesion of left ear Procedures CONSULT TO DERMATOLOGY Oly Smith APRN.HOME ENERGY CONSULTANT [address] [place] [address] Referral ID Status Reason Start Date Expiration Date Visits Requested Visits Authorized [id number] Ref Not Required PCP Requested Referral 05/08/2023 05/07/2024 1 1 [facility] for referral (narrative)* Diagnostic Procedure Only (Routine) - Closed Specialty Diagnoses / Procedures Referred By Contac t Referred To Contact XR IMAGING Diagnoses Chronic midline low back pain with sciatica, sciatica laterality unspecified Procedures XR LUMBAR GENERAL 3V AP/LAT/L5-S1 RADEX SPINE LUMBOSACRAL 2/3 VIEWS Oly Durbin APRN.HOME ENERGY CONSULTANT [address] [place] [address] [place] [address] Referral ID Status Reason Start Date Expiration Date V isits Requested Visits Authorized [id number] Closed Auto-Generate d Referral 05/08/2023 06/06/2024 1 1 [facility] for visit Narrative* Outpatient Procedure (Routine) - Closed Specialty Diagnoses / Procedures Referred By Contac t Referred To Contact HEART AND [facility] INSTITUTE Diagnoses DIAZ (dyspnea on exertion) Procedures ECHO ECHO TTHRC R-T 2D W/WOM-MODE COMPL SPEC&COLR D Tracy Ramires, TEACHER ADULT EDUCATION.HOME ENERGY CONSULTANT [address] [place] [address] [place] [address] [facility] [place] [address] [place] [address] Referral ID Status Reason Start Date Expiration Date V isits Requested Visits Authorized [id number] Closed Auto-Generate d Referral 04/30/2022 04/30/2023 1 1 [facility] for visit Narrative* Outpatient Procedure (Routine) - Closed Specialty Diagnoses / Procedures Referred By Contac t Referred To Contact [facility] Diagnoses SOB (shortness of breath) Procedures OXIMETRY WITH AMBULATION NONINVASIVE EAR/PULSE OXIMETRY MULTIPLE DETER Margaret Kasper MD [address] [place] [address] Respiratory [place] [address] [place] [address] Referral ID Status Reason Start Date Expiration Date V isits Requested Visits Authorized [id number] Closed Auto-Generate d Referral 07/06/2022 08/05/2023 1 1 [facility] for visit Narrative* Diagnostic Procedure Only (Routine) - Closed Specialty Diagnoses / Procedures Referred By Contac t Referred To Contact XR IMAGING Diagnoses Chronic midline low back pain with sciatica, sciatica laterality unspecified Procedures XR LUMBAR GENERAL 3V AP/LAT/L5-S1 RADEX SPINE LUMBOSACRAL 2/3 VIEWS Oly Durbin, TEACHER ADULT EDUCATION.HOME ENERGY CONSULTANT [address] [place] [address] [place] [address] Referral ID Status Reason Start Date Expiration Date V isits Requested Visits Authorized [id number] Closed Auto-Generate d Referral 05/08/2023 06/06/2024 1 1 [facility] Summary Purpose Family History No Family History Records Found Relationship Condition Age at Onset Recorded Date/T eyad mother Malignant neoplasm of liver Unknown father Malignant neoplasm of lung Unknown Advance Directives No Advanced Directives Records FoundDocuments on File Type Date Recorded 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 Advance Directive(s) 08/25/2021 8:30 AM Advance Directive(s) 07/27/2021 5:44 PM Advance Directive(s) 10/20/2019 11:23 AM Advance Directive(s) 10/05/2019 10:43 AM Advance Directive(s) 03/25/2019 7:55 AM Advance Directive(s) 01/06/2019 12:24 PM Advance Directive(s) 03/19/2017 9:41 AM Documents on File Type Date 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 Advance Directive(s) 08/25/2021 8:30 AM Advance Directive(s) 07/27/2021 5:44 PM Advance Directive(s) 10/20/2019 11:23 AM Advance Directive(s) 10/05/2019 10:43 AM Advance Directive(s) 03/25/2019 7:55 AM Advance Directive(s) 01/06/2019 12:24 PM Advance Directive(s) 03/19/2017 9:41 AM Advance Directive Response Recorded Date/ Time Advance Directives No May 24 2:30pm Living Will No January 02, 2 023 6:52pm Power of Pointing Machine Operator No January 02, 2023 6:52pm Advance Directive Response Recorded Date/ Time Advance Directives No May 24 2:30pm Living Will No January 02, 2 023 11:38pm Power of Pointing Machine Operator No January 02, 2023 11:38pm Latest Code Status on File Code Status Date Activated Date Inactivated Comments Full Code 04/30/2018 3:04 AM 05/05/2018 2:43 PM Reason for Referral Specialty Diagnoses / Procedures Referred By Contac t Referred To Contact Pulmonary and Critical Care Medicine Diagnoses Dyspnea on exertion Procedures CONSULT TO PULM/CRITICAL CARE OFFICE/OUTPATIENT NEW HIGH MDM 60-74 MINUTES Nicole Kenny, TEACHER ADULT EDUCATION.HOME ENERGY CONSULTANT [address] [place] [address] Referral ID Status Reason Start Date Expiration Date Visits Requested Visits Authorized [id number] Authorized PCP Requested Referral 03/13/2022 03/13/2023 1 1 Specialty Diagnoses / Procedures Referred By Contac t Referred To Contact [facility] Diagnoses Dyspnea on exertion Procedures LUNG DIFFUSION CAPACITY (DLCO) DIFFUSING CAPACITY Nicole Kenny, TEACHER ADULT EDUCATION.HOME ENERGY CONSULTANT [address] [place] [address] [facility] [address] [place] [id number] Referral ID Status Reason Start Date Expiration Date Visits Requested Visits Authorized [id number] Authorized Auto-Generat ed Referral 03/13/2022 04/12/2023 1 1 Specialty Diagnoses / Procedures Referred By Contac t Referred To Contact [facility] Diagnoses Dyspnea on exertion Procedures SPIROMETRY - BASELINE AND POST DILATOR BRNCDILAT RSPSE SPMTRY PRE&POST-BRNCDILAT ADMN Nicole Kenny, TEACHER ADULT EDUCATION.HOME ENERGY CONSULTANT [address] [place] [address] [facility] [address] [place] [id number] Referral ID Status Reason Start Date Expiration Date Visits Requested Visits Authorized [id number] Authorized Auto-Generat ed Referral 03/13/2022 04/12/2023 1 1 Specialty Diagnoses / Procedures Referred By Contac t Referred To Contact Vascular Surgery Diagnoses PAD (peripheral artery disease) (HCC) Procedures CONSULT TO VASCULAR SURGERY OFFICE/OUTPATIENT [facility] MDM 60-74 MINUTES Ulises Hermosillo MD [address] [place] [address] Referral ID Status Reason Start Date Expiration Date Visits Requested Visits Authorized [id number] Authorized PCP Requested Referral 05/11/2022 05/11/2023 1 1 Specialty Diagnoses / Procedures Referred By Contac t Referred To Contact [facility] Diagnoses PAD (peripheral artery disease) (HCC) Procedures PVR LEG SHERIN VAS LAB NON-INVASIVE PHYSIOLOGIC STUDY EXTREMITY 3 LEVLS Ulises Hermosillo MD [address] [place] [address] [facility] [address] [place] [address] Referral ID Status Reason Start Date Expiration Date Visits Requested Visits Authorized [id number] Authorized Auto-Generat ed Referral 05/11/2022 05/11/2023 1 1 Specialty Diagnoses / Procedures Referred By Contac t Referred To Contact CT IMAGING Diagnoses Smoker Encounter for screening for malignant neoplasm of lung Procedures CT LUNG SCREEN WO IVCON COMPUTED TOMOGRAPHY THORAX LW DOSE LNG CA SCR C- Nicole Kenny, TEACHER ADULT EDUCATION.HOME ENERGY CONSULTANT [address] [place] [address] Ct Imaging Referral ID Status Reason Start Date Expiration Date Visits Requested Visits Authorized [id number] Pending Review Auto-Generat ed Referral 05/30/2022 06/29/2023 1 1 Specialty Diagnoses / Procedures Referred By Contac t Referred To Contact [facility] Diagnoses Radiculopathy, lumbar region Chronic midline low back pain with sciatica, sciatica laterality unspecified Procedures CONSULT TO PHYSICAL THERAPY PHYSICAL THERAPY EVALUATION [facility] 45 MINS Older, Oly, TEACHER ADULT EDUCATION.HOME ENERGY CONSULTANT [address] [place] [address] [facility] [place] [address] [place] [address] Referral ID Status Reason Start Date Expiration Date Visits Requested Visits Authorized [id number] Pending Review Auto-Generat ed Referral 05/13/2023 05/12/2024 1 1 Specialty Diagnoses / Procedures Referred By Contac t Referred To Contact Pain Management Diagnoses Radiculopathy, lumbar region Chronic midline low back pain with sciatica, sciatica laterality unspecified Procedures CONSULT TO PAIN MGT OFFICE[facility]IENT [facility]74 [facility] Older, Oly, TEACHER ADULT EDUCATION.HOME ENERGY CONSULTANT [address] [place] [address] Referral ID Status Reason Start Date Expiration Date Visits Requested Visits Authorized [id number] Pending Review PCP Requested Referral 05/13/2023 05/12/2024 1 1 Specialty Diagnoses / Procedures Referred By Contac t Referred To Contact CT IMAGING Diagnoses Encounter for screening for lung cancer Tobacco use current Procedures CT LUNG SCREEN WO IVCON COMPUTED TOMOGRAPHY THORAX LW DOSE LNG CA SCR Reg- Fifi Clifton, TEACHER ADULT EDUCATION.HOME ENERGY CONSULTANT [address] [place] [address] Ct Imaging Referral ID Status Reason Start Date Expiration Date Visits Requested Visits Authorized [id number] Pending Review Auto-Generat ed Referral 05/28/2023 06/26/2024 [...] section and content) DATE CREATED AUTHOR 04/29/2018 [facility] DATE CREATED AUTHOR AUTHOR'S ORGANIZ ATION 05/04/2018 [facility] DATE CREATED AUTHOR AUTHOR'S ORGANIZ ATION 01/05/2022 [facility] DATE CREATED AUTHOR AUTHOR'S ORGANIZ ATION 08/11/2022 [facility] DATE CREATED AUTHOR AUTHOR'S ORGANIZ ATION 12/29/2022 [facility] ([place]) DATE CREATED AUTHOR AUTHOR'S ORGANIZ ATION 01/08/2023 [facility] DATE CREATED AUTHOR AUTHOR'S ORGANIZ ATION 10/05/2023 [facility] DATE CREATED AUTHOR AUTHOR'S ORGANIZ ATION 07/02/2025 [facility] DATE CREATED AUTHOR AUTHOR'S ORGANIZ ATION 07/25/2025 [facility] DATE CREATED AUTHOR AUTHOR'S ORGANIZ ATION 07/28/2025 [facility] Source Comments (unrecognize d section and content) In the event this informatio n is protected by the Federal Confidentiality of Alcohol and Drug Abuse Patient Records regulations: The Federal rules restrict any use of the information to criminally investigate or prosecute any alcohol or drug abuse patient.[facility] Hospital[facility] the event this information is protected by the Federal Confidentiality of Alcohol and Drug Abuse Patient Records regulations: The Federal rules restrict any use of the information to criminally investigate or prosecute any alcohol or drug abuse patient.[facility] HospitalIn the event this information is protected by the Federal Confidentiality of Alcohol and Drug Abuse Patient Records regulations: The Federal rules restrict any use of the information to criminally investigate or prosecute any alcohol or drug abuse patient.[facility] HospitalIn the event this information is protected by the Federal Confidentiality of Alcohol and Drug Abuse Patient Records regulations: The Federal rules restrict any use of the information to criminally investigate or prosecute any alcohol or drug abuse patient.[facility] HospitalIn the event this information is protected by the Federal Confidentiality of Alcohol and Drug Abuse Patient Records regulations: The Federal rules restrict any use of the information to criminally investigate or prosecute any alcohol or drug abuse patient.[facility] HospitalIn the event this information is protected by the Federal Confidentiality of Alcohol and Drug Abuse Patient Records regulations: The Federal rules restrict any use of the information to criminally investigate or prosecute any alcohol or drug abuse patient.[facility] HospitalIn the event this information is protected by the Federal Confidentiality of Alcohol and Drug Abuse Patient Records regulations: The Federal rules restrict any use of the information to criminally investigate or prosecute any alcohol or drug abuse patient.[facility] HospitalIn the event this information is protected by the Federal Confidentiality of Alcohol and Drug Abuse Patient Records regulations: The Federal rules restrict any use of the information to criminally investigate or prosecute any alcohol or drug abuse patient.[facility] HospitalIn the event this information is protected by the Federal Confidentiality of Alcohol and Drug Abuse Patient Records regulations: The Federal rules restrict any use of the information to criminally investigate or prosecute any alcohol or drug abuse patient.[facility] HospitalIn the event this information is protected by the Federal Confidentiality of Alcohol and Drug Abuse Patient Records regulations: The Federal rules restrict any use of the information to criminally investigate or prosecute any alcohol or drug abuse patient.[facility] HospitalIn the event this information is protected by the Federal Confidentiality of Alcohol and Drug Abuse Patient Records regulations: The Federal rules restrict any use of the information to criminally investigate or prosecute any alcohol or drug abuse patient.[facility] HospitalIn the event this information is protected by the Federal Confidentiality of Alcohol and Drug Abuse Patient Records regulations: The Federal rules restrict any use of the information to criminally investigate or prosecute any alcohol or drug abuse patient.[facility] HospitalIn the event this information is protected by the Federal Confidentiality of Alcohol and Drug Abuse Patient Records regulations: The Federal rules restrict any use of the information to criminally investigate or prosecute any alcohol or drug abuse patient.[facility] HospitalIn the event this information is protected by the Federal Confidentiality of Alcohol and Drug Abuse Patient Records regulations: The Federal rules restrict any use of the information to criminally investigate or prosecute any alcohol or drug abuse patient.[facility] HospitalIn the event this information is protected by the Federal Confidentiality of Alcohol and Drug Abuse Patient Records regulations: The Federal rules restrict any use of the information to criminally investigate or prosecute any alcohol or drug abuse patient.[facility] HospitalIn the event this information is protected by the Federal Confidentiality of Alcohol and Drug Abuse Patient Records regulations: The Federal rules restrict any use of the information to criminally investigate or prosecute any alcohol or drug abuse patient.[facility] HospitalIn the event this information is protected by the Federal Confidentiality of Alcohol and Drug Abuse Patient Records regulations: The Federal rules restrict any use of the information to criminally investigate or prosecute any alcohol or drug abuse patient.[facility] HospitalIn the event this information is protected by the Federal Confidentiality of Alcohol and Drug Abuse Patient Records regulations: The Federal rules restrict any use of the information to criminally investigate or prosecute any alcohol or drug abuse patient.[facility] HospitalIn the event this information is protected by the Federal Confidentiality of Alcohol and Drug Abuse Patient Records regulations: The Federal rules restrict any use of the information to criminally investigate or prosecute any alcohol or drug abuse patient.[facility] HospitalIn the event this information is protected by the Federal Confidentiality of Alcohol and Drug Abuse Patient Records regulations: The Federal rules restrict any use of the information to criminally investigate or prosecute any alcohol or drug abuse patient.[facility] HospitalIn the event this information is protected by the Federal Confidentiality of Alcohol and Drug Abuse Patient Records regulations: The Federal rules restrict any use of the information to criminally investigate or prosecute any alcohol or drug abuse patient.[facility] HospitalIn the event this information is protected by the Federal Confidentiality of Alcohol and Drug Abuse Patient Records regulations: The Federal rules restrict any use of the information to criminally investigate or prosecute any alcohol or drug abuse patient.[facility] HospitalIn the event this information is protected by the Federal Confidentiality of Alcohol and Drug Abuse Patient Records regulations: The Federal rules restrict any use of the information to criminally investigate or prosecute any alcohol or drug abuse patient.[facility] HospitalIn the event this information is protected by the Federal Confidentiality of Alcohol and Drug Abuse Patient Records regulations: The Federal rules restrict any use of the information to criminally investigate or prosecute any alcohol or drug abuse patient.[facility] HospitalIn the event this information is protected by the Federal Confidentiality of Alcohol and Drug Abuse Patient Records regulations: The Federal rules restrict any use of the information to criminally investigate or prosecute any alcohol or drug abuse patient.[facility] HospitalIn the event this information is protected by the Federal Confidentiality of Alcohol and Drug Abuse Patient Records regulations: The Federal rules restrict any use of the information to criminally investigate or prosecute any alcohol or drug abuse patient.[facility] HospitalIn the event this information is protected by the Federal Confidentiality of Alcohol and Drug Abuse Patient Records regulations: The Federal rules restrict any use of the information to criminally investigate or prosecute any alcohol or drug abuse patient.[facility] HospitalIn the event this information is protected by the Federal Confidentiality of Alcohol and Drug Abuse Patient Records regulations: The Federal rules restrict any use of the information to criminally investigate or prosecute any alcohol or drug abuse patient.[facility] HospitalIn the event this information is protected by the Federal Confidentiality of Alcohol and Drug Abuse Patient Records regulations: The Federal rules restrict any use of the information to criminally investigate or prosecute any alcohol or drug abuse patient.[facility] HospitalIn the event this information is protected by the Federal Confidentiality of Alcohol and Drug Abuse Patient Records regulations: The Federal rules restrict any use of the information to criminally investigate or prosecute any alcohol or drug abuse patient.[facility] HospitalIn the event this information is protected by the Federal Confidentiality of Alcohol and Drug Abuse Patient Records regulations: The Federal rules restrict any use of the information to criminally investigate or prosecute any alcohol or drug abuse patient.[facility] HospitalIn the event this information is protected by the Federal Confidentiality of Alcohol and Drug Abuse Patient Records regulations: The Federal rules restrict any use of the information to criminally investigate or prosecute any alcohol or drug abuse patient.[facility] HospitalIn the event this information is protected by the Federal Confidentiality of Alcohol and Drug Abuse Patient Records regulations: The Federal rules restrict any use of the information to criminally investigate or prosecute any alcohol or drug abuse patient.[facility] HospitalIn the event this information is protected by the Federal Confidentiality of Alcohol and Drug Abuse Patient Records regulations: The Federal rules restrict any use of the information to criminally investigate or prosecute any alcohol or drug abuse patient.[facility] HospitalIn the event this information is protected by the Federal Confidentiality of Alcohol and Drug Abuse Patient Records regulations: The Federal rules restrict any use of the information to criminally investigate or prosecute any alcohol or drug abuse patient.[facility] HospitalIn the event this information is protected by the Federal Confidentiality of Alcohol and Drug Abuse Patient Records regulations: The Federal rules restrict any use of the information to criminally investigate or prosecute any alcohol or drug abuse patient.[facility] HospitalIn the event this information is protected by the Federal Confidentiality of Alcohol and Drug Abuse Patient Records regulations: The Federal rules restrict any use of the information to criminally investigate or prosecute any alcohol or drug abuse patient.[facility] HospitalIn the event this information is protected by the Federal Confidentiality of Alcohol and Drug Abuse Patient Records regulations: The Federal rules restrict any use of the information to criminally investigate or prosecute any alcohol or drug abuse patient.[facility] HospitalIn the event this information is protected by the Federal Confidentiality of Alcohol and Drug Abuse Patient Records regulations: The Federal rules restrict any use of the information to criminally investigate or prosecute any alcohol or drug abuse patient.[facility] HospitalIn the event this information is protected by the Federal Confidentiality of Alcohol and Drug Abuse Patient Records regulations: The Federal rules restrict any use of the information to criminally investigate or prosecute any alcohol or drug abuse patient.[facility] HospitalIn the event this information is protected by the Federal Confidentiality of Alcohol and Drug Abuse Patient Records regulations: The Federal rules restrict any use of the information to criminally investigate or prosecute any alcohol or drug abuse patient.[facility] HospitalIn the event this information is protected by the Federal Confidentiality of Alcohol and Drug Abuse Patient Records regulations: The Federal rules restrict any use of the information to criminally investigate or prosecute any alcohol or drug abuse patient.[facility] HospitalIn the event this information is protected by the Federal Confidentiality of Alcohol and Drug Abuse Patient Records regulations: The Federal rules restrict any use of the information to criminally investigate or prosecute any alcohol or drug abuse patient.[facility] HospitalIn the event this information is protected by the Federal Confidentiality of Alcohol and Drug Abuse Patient Records regulations: The Federal rules restrict any use of the information to criminally investigate or prosecute any alcohol or drug abuse patient.[facility] HospitalIn the event this information is protected by the Federal Confidentiality of Alcohol and Drug Abuse Patient Records regulations: The Federal rules restrict any use of the information to criminally investigate or prosecute any alcohol or drug abuse patient.[facility] HospitalIn the event this information is protected by the Federal Confidentiality of Alcohol and Drug Abuse Patient Records regulations: The Federal rules restrict any use of the information to criminally investigate or prosecute any alcohol or drug abuse patient.[facility] HospitalIn the event this information is protected by the Federal Confidentiality of Alcohol and Drug Abuse Patient Records regulations: The Federal rules restrict any use of the information to criminally investigate or prosecute any alcohol or drug abuse patient.[facility] HospitalIn the event this information is protected by the Federal Confidentiality of Alcohol and Drug Abuse Patient Records regulations: The Federal rules restrict any use of the information to criminally investigate or prosecute any alcohol or drug abuse patient.[facility] HospitalIn the event this information is protected by the Federal Confidentiality of Alcohol and Drug Abuse Patient Records regulations: The Federal rules restrict any use of the information to criminally investigate or prosecute any alcohol or drug abuse patient.[facility] HospitalIn the event this information is protected by the Federal Confidentiality of Alcohol and Drug Abuse Patient Records regulations: The Federal rules restrict any use of the information to criminally investigate or prosecute any alcohol or drug abuse patient.[facility] HospitalIn the event this information is protected by the Federal Confidentiality of Alcohol and Drug Abuse Patient Records regulations: The Federal rules restrict any use of the information to criminally investigate or prosecute any alcohol or drug abuse patient.[facility] HospitalIn the event this information is protected by the Federal Confidentiality of Alcohol and Drug Abuse Patient Records regulations: The Federal rules restrict any use of the information to criminally investigate or prosecute any alcohol or drug abuse patient.[facility] HospitalIn the event this information is protected by the Federal Confidentiality of Alcohol and Drug Abuse Patient Records regulations: The Federal rules restrict any use of the information to criminally investigate or prosecute any alcohol or drug abuse patient.[facility] Reason for Visit (unrecogniz ed section [...] BRNCDILAT RSPSE SPMTRY PRE&POST-BRNCDILAT ADMN Nicole Kenny, TEACHER ADULT EDUCATION.[facility] [address] [place] [address] [facility] [address] [place] [address] Referral ID Status Reason Start Date Expiration Date V isits Requested Visits Authorized [id number] Closed Auto-Generate d Referral 03/13/2022 04/12/2023 1 [...] exertion Procedures CONSULT TO PULM/CRITICAL CARE OFFICE/[facility]74 [facility] Nicole Kenny, TEACHER ADULT EDUCATION.HOME ENERGY CONSULTANT [address] [place] [address] Referral ID Status Reason Start Date Expiration Date V isits Requested Visits Authorized [id number] Closed PCP Requested Referral 03/13/2022 03/13/2023 1 1 Reason Comments Patient Update Reason Comments F/U 3 Month Reason Comments Mouth/Lip Problem Reason Comments Pain Mouth pain x 1 week Reason Comments Patient Question Reason Comments Established Patient Specialty Diagnoses / Procedures Referred By Contac t Referred To Contact Vascular Surgery Diagnoses PAD (peripheral artery disease) (HCC) Procedures CONSULT TO VASCULAR SURGERY OFFICE/[facility] 60-74 [facility]UTES Ulises Hermosillo MD [address] [place] [address] [address] [place] [id number] Referral ID Status Reason Start Date Expiration Date V isits Requested Visits Authorized [id number] Closed PCP Requested Referral 05/11/2022 05/11/2023 1 1 Reason Comments New Patient Hemoptysis Reason Comments Behavioral Health Social Work Reason Comments Shortness of Breath Sent from [facility]. 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 Was sent to [facility] without O2, patient is on 2 L NC routinely Reason Onset Date Comments Population Health Navigation Outreach 04/16/2023 Navigator Kailash amaya [facility] gap outreach Reason Comments Follow Up Blood [...] Care Teams (unrecognized sec tion and content) Screed Person Relationship Specialty Start Date End Date Ulises Hermosillo MD [facility] [place], [place] [id number] PCP - General Internal Medicine 01/25/16 Screed Person Relationship Specialty Start Date End Date Ulises Hermosillo MD [address] [place] [address] PCP - General Internal Medicine 01/25/16 Screed Person Relationship Specialty Start Date End Date Ulises Hermosillo MD [address] [place] [address] PCP - General Internal Medicine 01/25/16 Screed Person Relationship Specialty Start Date End Date Ulises Hermosillo MD [address] [place] [address] PCP - General Internal Medicine 01/25/16 Screed Person Relationship Specialty Start Date End Date Ulises Hermosillo MD [address] [place] [address] PCP - General Internal Medicine 01/25/16 Screed Person Relationship Specialty Start Date End Date Ulises Hermosillo MD [address] [place] [address] PCP - General Internal Medicine 01/25/16 Screed Person Relationship Specialty Start Date End Date Ulises Hermosillo MD [address] [place] [address] PCP - General Internal Medicine 01/25/16 Screed Person Relationship Specialty Start Date End Date Ulises Hermosillo MD [address] [place] [address] PCP - General Internal Medicine 01/25/16 Screed Person Relationship Specialty Start Date End Date Ulises Hermosillo MD [address] [place] [address] PCP - General Internal Medicine 01/25/16 Screed Person Relationship Specialty Start Date End Date Ulises Hermosillo MD [address] [place] [address] PCP - General Internal Medicine 01/25/16 Screed Person Relationship Specialty Start Date End Date Ulises Hermosillo MD [address] [place] [address] PCP - General Internal Medicine 01/25/16 Screed Person Relationship Specialty Start Date End Date Ulises Hermosillo MD [address] [place] [address] PCP - General Internal Medicine 01/25/16 Screed Person Relationship Specialty Start Date End Date Ulises Hermosillo MD [address] [place] [address] PCP - General Internal Medicine 01/25/16 Screed Person Relationship Specialty Start Date End Date Ulises Hermosillo MD [address] [place] [address] PCP - General Internal Medicine 01/25/16 Screed Person Relationship Specialty Start Date End Date Ulises Hermosillo MD [address] [place] [address] PCP - General Internal Medicine 01/25/16 Screed Person Relationship Specialty Start Date End Date Ulises Hermosillo MD [address] [place] [address] PCP - General Internal Medicine 01/25/16 Screed Person Relationship Specialty Start Date End Date Ulises Hermosillo MD [address] [place] [address] PCP - General Internal Medicine 01/25/16 Screed Person Relationship Specialty Start Date End Date Ulises Hermosillo MD [address] [place] [address] PCP - General Internal Medicine 01/25/16 Screed Person Relationship Specialty Start Date End Date Ulises Hermosillo MD [address] [place] [address] PCP - General Internal Medicine 01/25/16 Screed Person Relationship Specialty Start Date End Date Ulises Hermosillo MD [address] [place] [address] PCP - General Internal Medicine 01/25/16 Screed Person Relationship Specialty Start Date End Date Ulises Hermosillo MD [address] [place] [address] PCP - General Internal Medicine 01/25/16 Screed Person Relationship Specialty Start Date End Date Ulises Hermosillo MD [address] [place] [address] PCP - General Internal Medicine 01/25/16 Team [...] Provider, Other Provider Active Dr. Siddhartha Teague , DO Attending Provider Active Dr. Joel Sauer , DO Other Provider Active Screed Person Relationship Specialty Start Date End Date Ulises Hermosillo MD [address] [place] [address] PCP - General Internal Medicine 01/25/16 Screed Person Relationship Specialty Start Date End Date Ulises Hermosillo MD [address] [place] [address] PCP - General Internal Medicine 01/25/16 Screed Person Relationship Specialty Start Date End Date Ulises Hermosillo MD [address] [place] [address] PCP - General Internal Medicine 01/25/16 Screed Person Relationship Specialty Start Date End Date Ulises Hermosillo MD [address] [place] [address] PCP - General Internal Medicine 01/25/16 Screed Person Relationship Specialty Start Date End Date Ulises Hermosillo MD [address] [place] [address] PCP - General Internal Medicine 01/25/16 Screed Person Relationship Specialty Start Date End Date Ulises Hermosillo MD [address] [place] [address] PCP - General Internal Medicine 01/25/16 Screed Person Relationship Specialty Start Date End Date Ulises Hermosillo MD [address] [place] [address] PCP - General Internal Medicine 01/25/16 Screed Person Relationship Specialty Start Date End Date Ulises Hermosillo MD [address] [place] [address] PCP - General Internal Medicine 01/25/16 Screed Person Relationship Specialty Start Date End Date Ulises Hermosillo MD [address] [place] [address] PCP - General Internal Medicine 01/25/16 Screed Person Relationship Specialty Start Date End Date Ulises Hermosillo MD [address] [place] [address] PCP - General Internal Medicine 01/25/16 Screed Person Relationship Specialty Start Date End Date Ulises Hermosillo MD [address] [place] [address] PCP - General Internal Medicine 01/25/16 01/14/24 Screed Person Relationship Specialty Start Date End Date Ulises Hermosillo MD [address] [place] [address] PCP - General Internal Medicine 01/25/16 01/14/24 Screed Person Relationship Specialty Start Date End Date Ulises Hermosillo MD [address] [place] [address] PCP - General Internal Medicine 01/25/16 01/14/24 Gabriella Chambers, AAMIR [address] [place] [address] Primary Service Internal Medicine 02/27/18 04/26/21 Screed Person Relationship Specialty Start Date End Date Ulises Hermosillo MD [address] [place] [address] PCP - General Internal Medicine 01/25/16 01/14/24 Gabriella Chambers, RN [address] [place] [address] Primary Service Internal Medicine 02/27/18 04/26/21 Care Team (unrecognized sect ion and content) Personnel Name: ULISES HERMOSILLO MD Address: Address: [address] [place] [address]- Personnel Name: ULISES HERMOSILLO MD Address: Address: [address] [place] [address]- Care Team Personnel Name: ULISES HERMOSILLO MD Member Role: Primary Care Physician Address: Address: [address] [place] [address]- Name: Yolanda Gonzalez RN Position: RN Member Role: RN Name: ZINA GLOVER DO Position: ED Physician Address: Address: [address] [place] [address] [place] [address]- Name: BRIAN TRINIDAD DO Position: Resident Member Role: ED Physician Address: Address: [address] [place] [address] [place] [address]- Care Team Related Persons Name: MELY SERNA Address: Home [address] [place] [address] [place] Name: MELY SERNA Address: Home [address] [place] [address] [place] Name: MELY SERNA Address: Home [address] [place] [address] [place] Name: MELY SERNA Address: Home [address] [place] [address] [place] Name: MELY SERNA Address: Home [address] [place] [address] [place] Name: MELY SERNA Address: Home [address] [place] [address] [place] Name: MELY SERNA Address: Home [address] Care Team Personnel Name: ULISES HERMOSILLO MD Member Role: Primary Care Physician Address: Address: [address] [place] [address]- [place] Name: MD JOSE ROBERTO COMBS MD Position: ED Physician Member Role: ED Physician Address: Address: ANISHA SMITH [facility] [address] [place] [address]- Care Team Related Persons Name: SERNAMELY Address: Home [address] [place] [address] [place] Name: MELY SERNA Address: Home [address] [place] [address] [place] Name: MELY SERNA Address: Home [address] [place] [address] [place] Name: MELY SERNA Address: Home [address] Name: CRIS SERNAFER Address: Home [address] [place] [address] [place] Name: MELY SERNA Address: Home [address] [place] [address] [place] Name: DAPHNE MELY Address: Home [address] Goals (unrecognized section and content) Goals [...] BE BASED ON THE PRIMARY CLINICAL RECORDS. [employer] [facility]. provides no warranty or guarantee of the accuracy or completeness of information in this document.
[2025-10-19 10:32] LABS: Anion Gap 10 (5-15); BUN 25 mg/dL (4-19); BUN/Creat Ratio 23.3 RATIO (10-20); Calcium,Total 8.6 mg/dL (7.6-11.0); Carbon Dioxide 27.9 mmol/L (21.0-32.0); Chloride 102 mmol/L (98-108); Glucose 93 mg/dL (70-99); Potassium 4.5 mmol/L (3.3-5.1)
[2025-10-19 10:49] LABS: Hematocrit 27.8 % (37-47); Hemoglobin 8.7 g/dL (12.0-15.0); Mean Corp Hgb Conc 31.3 g/dL (32-36); Mean Corpuscular Volume 81.5 fL (81-99); Mean Platelet Vol. 9.9 fl (6.2-12.0); Platelet Count 468 K/mm3 (150-450); RBC Distribution Width CV 17.8 % (11.6-14.6); RBC Distribution Width SD 51.5 fl (35.1-43.9); Red Blood Count 3.41 M/mm3 (4.2-5.4); White Blood Count 7.8 K/mm3 (4.4-11.0)
== END ==
LOC: OLS.SW 04:00
PROVIDERS: Referring Provider Family Medicine; Visit Provider Family Medicine
DX: J96.11 Chronic respiratory failure with hypoxia (principal); Z79.899 Other long term (current) drug therapy
CPT/HCPCS: 36415; 80048; 85027

== ENCOUNTER → 2025-10-26 05:00 | Outpatient (REF) | payer MEDICARE, MEDICAID, SELFPAY ==
--- OUTSIDE RECORDS SUMMARY | 2025-10-26 04:06 | XMS RPT_ITS | CCD ---
Author Organization [facility] Care Team Providers Care Bran Mixer Name Role Phone PROVIDER, UNKNOWN Unavailable Unavailable No, PCP Unavailable Unavailable Qasim Martinez Unavailable Ulises Caruso MD Primary Care Provider DR ULISES HERMOSILLO MD Primary Care Physician ( [phone] Ulises Hermosillo MD Primary Care Provider ULISES [...] Care Provider MD Miah Koroma Emergency Provider [phone] Linda Luque Attending Provider Dr. Lidna Luque Admit Provider Dr. Linda Luque Other [...] DO, EMMA M Primary Care Unavailable SOSA MONTAGUETELECOMMUNICATOR SUPERVISOR, ELLEN Attending Unavailab lesly FANG MD, DR [...] Facility (1 source) PHENobarbital Drug Allergy 01-05-2023 [facility] (1 source) PHENobarbital Drug Allergy 01-05-2023 [facility] Repository Medications Current Medications Medication Drug Class(es) Dates Sig (Normalized) Sig (Original) albuterol 0.21 mg/ml inhalation solution (20 sources) beta2-Adrenergic Agonist Start: 01-11-2025 take 1 dose by inhalation four times daily albuterol 0.63 mg/3 mL (0.021%) inhalation solution Dose : 0.63 mg = 3 mL, Inhalation, QID, # 90 mL, 1 Refill(s), Pharmacy: [facility]/pharmacy #[id number], 167.6, cm, 01/11/25 11:11:00 EST, [...] wheezing, # 18 gram(s), 11 Refill(s), Pharmacy: [facility]/pharmacy #[id number], COPD with chronic bronchitis, 165.1, cm, 03/04/25 [...] wheezing, # 18 gram(s), 11 Refill(s), Pharmacy: [facility]/pharmacy #[id number], COPD with chronic bronchitis, 165.1, [...] qDay, # 30 tab(s), 11 Refill(s), Pharmacy: [facility]/pharmacy #[id number], 165, cm, 11/30/24 9:43:00 EST, [...] qDay, # 90 tab(s), 3 Refill(s), Pharmacy: [facility]/pharmacy #[id number], 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, 162.5, cm, 10/23/24 13:20:00 EST, Height, kg, 10/23/24 13:20:00 EST, Dosing Weight Start Date: 10/23/24 Status: Ordered Medication Dispense Status: Completed Quantity: 90.0 Unit: tab(s) Total Allowed Fills: 4 Fills Dispensed: 0 Indications: Presence of coronary angioplasty implant and graft; Atherosclerotic heart disease of jamul coronary artery without angina pectoris; Start: 05-02-2022 [...] TID, # 90 tab(s), 0 Refill(s), Pharmacy: [facility]/pharmacy #[id number], 165.1, cm, 03/04/25 7:59:00 EDT, [...] cap(s), 0 Refill(s), 05/08/22 11:02:00 EDT, [id number] 165.1, cm, 05/02/22 9:53:00 EDT, Height, 60 Start Date: 05/05/22 Stop Date: 05/08/22 Status: Ordered clopidogrel 75 mg oral tablet (20 sources) [id number] Platelet Inhibitor Start: 10-23-2024 clopi dogrel 75 mg oral tablet Dose : 75 mg = 1 tab(s), Oral, Daily, # 90 tab(s), 3 Refill(s), Pharmacy: [facility]/pharmacy #[id number], 162.5, cm, 10/23/24 13:20:00 EST, [...] Comment on above: Take 1 tablet by [facility] once daily. doxycycline hyclate 100 mg [...] qAM, # 30 tab(s), 0 Refill(s), Pharmacy: [facility], 165.1, cm, 06/12/25 19:25:00 EDT, [...] take 1 puff(s) by inhalation once daily wosojjdiezc-akfsywekq-nhsnxnru (TRELEGY ELLIPTA) 200-62.5-25 mcg inhalation powder Inhale 1 Puff as instructed once daily. 60 Each 11/26/2022 12/26/2022 Active Start: 07-23-2022 End: 11-26-2022 take 1 puff(s) by inhalation once daily pxfkaclwele-wkgaanukc-lsvyownr (TRELEGY ELLIPTA) 200-62.5-25 mcg inhalation powder Inhale 1 Puff as instructed once daily. 60 Each 07/23/2022 11/26/2022 Discontinued Start: 07-23-2022 take 1 puff(s) by inhalation once daily khacklookpb-yjwopzhfx-ooplzzau (TRELEGY ELLIPTA) 200-62.5-25 mcg inhalation powder Inhale 1 Puff as instructed once daily. 60 Each 07/23/2022 Active Start: 07-23-2022 End: 08-22-2022 take 1 puff(s) by inhalation once daily xjybnrdmqpo-hgmhljvog-woewhqtf (TRELEGY ELLIPTA) 200-62.5-25 mcg inhalation powder Inhale 1 Puff as instructed once daily. 60 Each 07/23/2022 08/22/2022 Active Start: 06-06-2022 End: 07-20-2022 take 1 puff(s) by inhalation once daily hhuhbmfoinr-anenfcsnt-uydapvkk (TRELEGY ELLIPTA) 200-62.5-25 mcg inhalation powder Inhale 1 Puff as instructed once daily. 60 Each 06/06/2022 07/20/2022 Discontinued Start: 06-06-2022 take 1 puff(s) by inhalation once daily aihanhtcbho-pvvqpfcpy-axnecvfb (TRELEGY ELLIPTA) 200-62.5-25 mcg inhalation powder Inhale 1 Puff as instructed once daily. 60 Each 06/06/2022 Active Start: 06-06-2022 End: 07-06-2022 take 1 puff(s) by inhalation once daily uxtuztezmdn-zffvnrypm-cgaquxlk (TRELEGY ELLIPTA) 200-62.5-25 mcg inhalation powder Inhale 1 Puff as instructed once daily. 60 Each 06/06/2022 07/06/2022 Active Comment on above: Inhale 1 Puff as ins tructed once daily. furosemide 40 mg oral tablet (4 sources) Loop Diuretic Start: 06-15-2025 Lasix 40 mg oral tablet Dose : 40 mg = 1 tab(s), Oral, qDay, # 30 tab(s), 0 Refill(s), Pharmacy: [facility], 165.1, cm, 06/12/25 19:25:00 EDT, [...] qDay, # 90 cap(s), 3 Refill(s), Pharmacy: [facility]/pharmacy #[id number], GERD (gastroesophageal reflux disease), 162.5, cm, 10/23/24 [...] End: 03-14-2025 prednisone 10mg tab (TAPER) Taper 10-52-48-99-82-75-10-5 mg x 1 day until gone, Oral, qAM, # 18 tab(s), 0 Refill(s), Pharmacy: [facility]/pharmacy #[id number], 165.1, cm, 03/04/25 7:59:00 EDT, [...] tab(s), 0 Refill(s), 05/08/22 11:01:00 EDT, Pharmacy: [facility]/pharmacy #[id number], 165.1, cm, 05/02/22 9:53:00 EDT, Height Start Date: 05/05/22 Stop Date: 05/08/22 Status: Ordered Comment on above: Take two daily for 5 days then one daily for 10 days QUEtiapine 25 mg oral tablet (2 sources) Atypical Antipsychotic Start: 06-15-2025 Seroquel 25 mg oral tablet Dose : 25 mg = 1 tab(s), Oral, qHS, # 30 tab(s), 0 Refill(s), Pharmacy: [facility]/pharmacy #[id number], 165.1, cm, 06/12/25 19:25:00 EDT, [...] qDay, # 30 tab(s), 11 Refill(s), Pharmacy: [facility]/pharmacy #[id number], 165, cm, 11/30/24 9:43:00 EST, [...] BID, # 180 tab(s), 3 Refill(s), Pharmacy: [facility], 165.1, cm, 06/12/25 19:25:00 EDT, Height, kg, 06/12/25 19:25:00 EDT, Dosing Weight Start Date: 06/15/25 Status: Ordered Medication Dispense Status: Completed Quantity: 180.0 Unit: tab(s) Total Allowed Fills: 4 Fills Dispensed: 0 Start: 01-29-2025 take 1 tablet by sukumar th twice daily Entresto 24 mg-26 mg oral tablet Dose = 1 tab(s), Oral, BID, # 180 tab(s), 3 Refill(s), Pharmacy: [facility]/pharmacy #[id number], 162.5, cm, 01/21/25 13:39:00 EDT, Height, kg, 01/21/25 13:39:00 EDT, Dosing Weight Start Date: 01/29/25 Status: Ordered Quantity: 180.0 Unit: tab(s) Repeat number: 4 Symbicort 160 mcg-4.5 mcg/inh Inhaler (3 sources) Start: 05-05-2022 take 1 dose by inhalation twice daily Symbicort 160 mcg-4.5 mcg/inh Inhaler Dose = 2 puff(s), Inhalation, BID, # 10.2 gram(s), 0 Refill(s), Pharmacy: [facility]/pharmacy #[id number], 165.1, cm, 05/02/22 9:53:00 EDT, Height Start Date: 05/05/22 Status: Ordered traZODone hydrochloride 100 mg oral tablet (20 sources) Serotonin Reuptake Inhibitor Start: 10-23-2024 traZODone 100 mg oral tablet Dose : 100 mg = 1 tab(s), Oral, qHS, # 90 tab(s), 3 Refill(s), Pharmacy: [facility]/pharmacy #[id number], Psychophysiologic insomnia, 162.5, cm, 10/23/24 [...] day, # 60 EA, 5 Refill(s), Pharmacy: [facility]/pharmacy #[id number], 162.5, cm, 01/21/25 13:39:00 EDT, [...] day, # 60 EA, 5 Refill(s), Pharmacy: [facility]/pharmacy #[id number], 162.5, cm, 01/21/25 13:39:00 EDT, [...] Discontinued Start: 07-29-2017 take 1 capsule by [facility] three times daily as needed Hydroxyzine Pamoate (Vistaril) 50 mg capsule Active 50 MG PO 3 TIMES DAILY NEEDED July 28, 2017 11:00pm Comment on above: Take 1 capsule by [facility] three times daily as needed for Anxiety. [...] release), # 30 tab(s), 11 Refill(s), Pharmacy: [facility], 165.1, cm, 06/12/25 19:25:00 EDT, [...] release), # 30 tab(s), 11 Refill(s), Pharmacy: [facility]/pharmacy #[id number], 165, cm, 11/30/24 9:43:00 EST, Height, kg, 11/30/24 9:43:00 EST, Dosing Weight Start Date: 11/30/24 Status: Ordered Quantity: 30.0 Unit: tab(s) Repeat number: 12 Start: 02-01-2017 End: 09-27-2021 take 1 tablet by mouth twice daily metoprolol tartrate, short acting, (LOPRESSOR) 25 mg tablet Indications: Essential hypertension Take 1 tablet by mouth twice daily. 60 tablet 5 07/06/2020 09/27/2021 Discontinued nystatin 615175 unt/ml oral suspension (11 sources) Polyene Antifungal [...] Coronary atherosclerosis; Translations: [Atherosclerotic heart disease of jamul coronary artery without angina pectoris] Onset: 1 [...] 10-06-2019 Chronic Other aftercare (1 source) Other care home (current) drug therapy; Translations: [Other cleaner carpet and upholstery (current) drug therapy] Onset: 03-04-2025 Episodic Other aftercare (1 source) Encounter for therapeutic drug level monitoring; Translations: [Encounter for therapeutic drug level monitoring] Onset: 03-04-2025 Episodic Other aftercare (1 source) 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/antip latelets; Translations: [assisted (current) use of antithrombotics/antip latelets] Onset: 03-04-2025 Episodic Other aftercare (1 source) assisted (current) use of aspirin; Translations: [assisted (current) use of aspirin] Onset: 03-04-2025 Episodic Other aftercare (1 source) assisted (current) use of inhaled steroids; Translations: [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 manufacturing supervisor (current) use of inhaled steroids] Onset: 03-04-2025 [...] width (RBC) [Ratio] 17.0 % High 11.6-14.6 [facility] Comment on above: Order Comment: 108 Performed By: #### L [id number], L500.4050, L100.0500, L500.4100, L501.9985, L501.9520 #### [facility] [address] [place], [address] Hematocrit (Bld) [Volume fraction] 36.2 % Low 37-47 [facility] Comment on above: Order Comment: 108 Performed By: #### L [id number], L500.4050, L100.0500, L500.4100, L501.9985, L501.9520 #### [facility] [address] [place], [address] Hemoglobin (Bld) [Mass/Vol] 11.5 g/dL Low 12.0-15.0 [facility] Comment on above: Order Comment: 108 Performed By: #### L [id number], L500.4050, L100.0500, L500.4100, L501.9985, L501.9520 #### [facility] [address] [place], [address] MCH (RBC) [Entitic mass] 29.3 pg Normal 27.0-32.0 [facility] Comment on above: Order Comment: 108 Performed By: #### L [id number], L500.4050, L100.0500, L500.4100, L501.9985, L501.9520 #### [facility] [address] [place], [address] MCHC (RBC) [Mass/Vol] 31.8 g/dL Low 32-36 [facility] Comment on above: Order Comment: 108 Performed By: #### L [id number], [id number], L100.0500, L500.4100, L501.9985, L501.9520 #### [facility] [address] [place], [address] MCV (RBC) [Entitic vol] 92.3 fL Normal 81-99 [facility] Comment on above: Order Comment: 108 Performed By: #### L [id number], L500.4050, L100.0500, L500.4100, L501.9985, L501.9520 #### [facility] [address] [place], [address] Platelet mean volume (Bld) [Entitic vol] 10.8 fL Normal 6.2-12.0 [facility] Comment on above: Order Comment: 108 Performed By: #### L [id number], L500.4050, L100.0500, L500.4100, L501.9985, L501.9520 #### [facility] [address] [place], [address] Platelets (Bld) [#/Vol] 385 10*3/uL Normal 150-450 [facility] Comment on above: Order Comment: 108 Performed By: #### L [id number], L500.4050, L100.0500, L500.4100, L501.9985, L501.9520 #### [facility] [address] [place], [address] RBC (Bld) [#/Vol] 3.92 10*6/uL Low 4.2-5.4 [facility] Comment on above: Order Comment: 108 Performed By: #### L [id number], L500.4050, L100.0500, L500.4100, L501.9985, L501.9520 #### [facility] [address] [place], [address] RDW SD 57.4 fl High 35.1-43.9 [facility] Comment on above: Order Comment: 108 Performed By: #### L 501.9310, L500.4050, L100.0500, L500.4100, L501.9985, L501.9520 #### [facility] [address] [place], [address] WBC (Bld) [#/Vol] 6.5 10*3/uL Normal 4.4-11.0 [facility] Comment on above: Order Comment: 108 Performed By: #### L 501.9310, L500.4050, L100.0500, L500.4100, L501.9985, L501.9520 #### [facility] [address] [place], [address] Comprehensive Metabolic Prof ilon 07-13-2025 Albumin [Mass/Vol] 3.5 g/dL Normal 3.4-4.8 [facility] Comment on above: Order Comment: 108 Performed By: #### L 501.9310, L500.4050, L100.0500, L500.4100, L501.9985, L501.9520 #### [facility] [address] [place], [address] Albumin/Globulin [Mass ratio] 1.2 {ratio} Normal 0.9-2.4 [facility] Comment on above: Order Comment: 108 Performed By: #### L 501.9310, L500.4050, L100.0500, L500.4100, L501.9985, L501.9520 #### [facility] [address] [place], [address] ALK PHOS 62 U/L Normal 35-104 [facility] Comment on above: Order Comment: 108 Performed By: #### L 501.9310, L500.4050, L100.0500, L500.4100, L501.9985, L501.9520 #### [facility] [address] [place], [address] ALT [Catalytic activity/Vol] U/L Normal <=34 [facility] Comment on above: Order Comment: 108 Performed By: #### L 501.9310, L500.4050, L100.0500, L500.4100, L501.9985, L501.9520 #### [facility] [address] [place], [address] AST [Catalytic activity/Vol] 17 U/L Normal <=31 [facility] Comment on above: Order Comment: 108 Performed By: #### L 501.9310, L500.4050, L100.0500, L500.4100, L501.9985, L501.9520 #### [facility] [address] [place], [address] Bilirubin [Mass/Vol] 0.17 mg/dL Normal 0.00-1.30 [facility] Comment on above: Order Comment: 108 Performed By: #### L 501.9310, L500.4050, L100.0500, L500.4100, L501.9985, L501.9520 #### [facility] [address] [place], [address] BUN/CRE 31.1 RATIO High 10-20 [facility] Comment on above: Order Comment: 108 Performed By: #### L 501.9310, L500.4050, L100.0500, L500.4100, L501.9985, L501.9520 #### [facility] [address] [place], [address] Calcium [Mass/Vol] 9.1 mg/dL Normal 7.6-11.0 [facility] Comment on above: Order Comment: 108 Performed By: #### L 501.9310, L500.4050, L100.0500, L500.4100, L501.9985, L501.9520 #### [facility] [address] [place], [address] Chloride [Moles/Vol] 103 mmol/L Normal 98-108 [facility] Comment on above: Order Comment: 108 Performed By: #### L 501.9310, L500.4050, L100.0500, L500.4100, L501.9985, L501.9520 #### [facility] [address] [place], [address] CO2 [Moles/Vol] 25.7 mmol/L Normal 21.0-32.0 [facility] Comment on above: Order Comment: 108 Performed By: #### L 501.9310, L500.4050, L100.0500, L500.4100, L501.9985, L501.9520 #### [facility] [address] [place], [address] Creatinine [Mass/Vol] 0.85 mg/dL Normal 0.70-1.20 [facility] Comment on above: Order Comment: 108 Performed By: #### L 501.9310, L500.4050, L100.0500, L500.4100, L501.9985, L501.9520 #### [facility] [address] [place], [address] GAP 9 Normal 5-15 [facility] Comment on above: Order Comment: 108 Performed By: #### L 501.9310, L500.4050, L100.0500, L500.4100, L501.9985, L501.9520 #### [facility] [address] [place], [address] GFR/1.73 sq M.predicted among non-blacks MDRD (S/P/Bld) [Vol rate/Area] 74 mL/min/{1.73_m2} Normal >60 [facility] Comment on above: Order Comment: 108 Result Comment: mL/m in/1.73m2 CKD-EPI Creatinine Equation (2020) Performed By: #### L 501.9310, L500.4050, L100.0500, L500.4100, L501.9985, L501.9520 #### [facility] [address] [place], [address] Globulin (S) [Mass/Vol] 3.0 g/dL Normal 2.2-4.2 [facility] Comment on above: Order Comment: 108 Performed By: #### L 501.9310, L500.4050, L100.0500, L500.4100, L501.9985, L501.9520 #### [facility] [address] [place], [address] Glucose [Mass/Vol] 98 mg/dL Normal 70-99 [facility] Comment on above: Order Comment: 108 Performed By: #### L 501.9310, L500.4050, L100.0500, L500.4100, L501.9985, L501.9520 #### [facility] [address] [place], [address] Potassium [Moles/Vol] 4.5 mmol/L Normal 3.3-5.1 [facility] Comment on above: Order Comment: 108 Performed By: #### L 501.9310, L500.4050, L100.0500, L500.4100, L501.9985, L501.9520 #### [facility] [address] [place], [address] Sodium [Moles/Vol] 138 mmol/L Normal 133-145 [facility] Comment on above: Order Comment: 108 Performed By: #### L 501.9310, L500.4050, L100.0500, L500.4100, L501.9985, L501.9520 #### [facility] [address] [place], [address] T PROT 6.4 g/dL Normal 5.9-8.4 [facility] Comment on above: Order Comment: 108 Performed By: #### L 501.9310, L500.4050, L100.0500, L500.4100, L501.9985, L501.9520 #### [facility] [address] [place], [address] Urea nitrogen [Mass/Vol] 27 mg/dL High 4-19 [facility] Comment on above: Order Comment: 108 Performed By: #### L 501.9310, L500.4050, L100.0500, L500.4100, L501.9985, L501.9520 #### [facility] [address] [place], [address] Hemoglobin A1con 07-13-2025 HbA1c (Bld) [Mass fraction] 5.7 % Normal <=5.6 [facility] Comment on above: Order Comment: 108 Result Comment: Norm al < 5.7 % Prediabetic 5.7 - 6.4 % Diabetic >or= 6.5 % Please note range changes. Performed By: #### L 501.9310, L500.4050, L100.0500, L500.4100, L501.9985, L501.9520 #### [facility] [address] [place], [address] Lipid Profileon 07-13-2025 CHOL:HDL 2.44 Normal [facility] Comment on above: Order Comment: 108 Performed By: #### L 501.9310, L500.4050, L100.0500, L500.4100, L501.9985, L501.9520 #### [facility] [address] [place], [address] Cholesterol [Mass/Vol] 127 mg/dL Normal <=200 [facility] Comment on above: Order Comment: 108 Result Comment: Chol esterol level, Desirable <200 mg/dL Borderline high cholesterol 200-239 mg/dL High cholesterol >=240 mg/dL Recommendations of the NCEP Adult Treatment Panel for the following risk-cutoff thresholds for the [place] population. Performed By: #### L 501.9310, L500.4050, L100.0500, L500.4100, L501.9985, L501.9520 #### [facility] [address] [place], [address] Cholesterol in HDL [Mass/Vol] 52 mg/dL Normal [facility] Comment on above: Order Comment: 108 Result Comment: [place] onal Cholesterol Education Program (NCEP) guidelines: <40 mg/dL: Low HDL-cholesterol (major risk factor for CHD) >= 60 mg/dL: High HDL-cholesterol (negative risk factor for CHD) HDL-cholesterol is affected by a number of factors, e.g. smoking, exercise, hormones, sex and age. Performed By: #### L 501.9310, L500.4050, L100.0500, L500.4100, L501.9985, L501.9520 #### [facility] [address] [place], [address] Cholesterol in LDL [Mass/Vol] 52 mg/dL Normal [facility] Comment on above: Order Comment: 108 Result Comment: Bord dgncpa=442-085 mg/dL Higher Tnuo=393 mg/dL or greater Friedwald Equation for LDL-C Performed By: #### L 501.9310, L500.4050, L100.0500, L500.4100, L501.9985, L501.9520 #### [facility] [address] [place], [address] Cholesterol in VLDL [Mass/Vol] 23 mg/dL Normal 5-40 [facility] Comment on above: Order Comment: 108 Performed By: #### L 501.9310, L500.4050, L100.0500, L500.4100, L501.9985, L501.9520 #### [facility] [address] [place], [place], [id number] Triglyceride [Mass/Vol] 113 mg/dL Normal [facility] Comment on above: Order Comment: 108 Result Comment: The drugs N-Acetylcysteine and Metamizole may falsely depress this assay. Normal range: <150 mg/dL Borderline High: 150-199 mg/dL High: 200-499 mg/dL Very High: >500 mg/dL Performed By: #### L 501.9310, L500.4050, L100.0500, L500.4100, L501.9985, L501.9520 #### [facility] [address] [place], [address] T4 Total, Thyroxinon 025 T4 [Mass/Vol] 6.1 ug/dL Normal 4.8-13.9 [facility] Comment on above: Order Comment: 108 Performed By: #### L 501.9310, L500.4050, L100.0500, L500.4100, L501.9985, L501.9520 #### [facility] [address] [place], [place], [id number] Thyroid Stim Hormone (TSH)on 07-13-2025 TSH 3.620 uIU/mL Normal 0.300-4.200 [facility] Comment on above: Order Comment: 108 Performed By: #### L 501.9310, L500.4050, L100.0500, L500.4100, L501.9985, L501.9520 #### [facility] [address] [place], [place], [id number] .Auto Diffon 07-10-2025 Basophil, Absolute 0.1 10 3/mcL Normal 0.0-0.3 [facility] Comment on above: Performed By: #### A DIFF, PBNP, TROPHS, CBC, GFR, MDW, ANEU, BMP #### [address] [address] Basophils/100 WBC (Bld) 1.1 % Normal 0.0-2.5 [facility] Comment on above: Performed By: #### A DIFF, PBNP, TROPHS, CBC, GFR, MDW, ANEU, BMP #### [address] [address] Eosinophil, Absolute 0.3 10 3/mcL Normal 0.0-0.7 [facility] Comment on above: Performed By: #### A DIFF, PBNP, TROPHS, CBC, GFR, MDW, ANEU, BMP #### [address] [address] Eosinophils/100 WBC (Bld) 3.2 % Normal 0.0-6.0 [facility] Comment on above: Performed By: #### A DIFF, PBNP, TROPHS, CBC, GFR, MDW, ANEU, BMP #### [address] [address] Lymphocyte, Absolute 2.6 10 3/mcL Normal 0.9-4.3 [facility] Comment on above: Performed By: #### A DIFF, PBNP, TROPHS, CBC, GFR, MDW, ANEU, BMP #### [address] [address] Lymphocytes/100 WBC (Bld) 31.2 % Normal 20.0-40.0 [facility] Comment on above: Performed By: #### A DIFF, PBNP, TROPHS, CBC, GFR, MDW, ANEU, BMP #### [address] [address] Monocyte, Absolute 1.2 10 3/mcL Normal 0.1-1.4 [facility] Comment on above: Performed By: #### A DIFF, PBNP, TROPHS, CBC, GFR, MDW, ANEU, BMP #### [address] [address] Monocytes/100 WBC (Bld) 13.9 % High 2.0-13.0 [facility] Comment on above: Performed By: #### A DIFF, PBNP, TROPHS, CBC, GFR, MDW, ANEU, BMP #### [address] [address] Neutrophils/100 WBC (Bld) 50.6 % Normal 50.0-75.0 [facility] Comment on above: Performed By: #### A DIFF, PBNP, TROPHS, CBC, GFR, MDW, ANEU, BMP #### [address] [place], [place] [address] .GFRon 07-10-2025 Estimated Glomerular Filtration Rate 71 ml/min/1.73sqm Normal [facility] Comment on above: Result Comment: Stages [...] TROPHS, CBC, GFR, MDW, ANEU, BMP #### [address] [address] .NEUABSon 07-10-2025 Neutrophil, Absolute 4.2 10 3/mcL Normal 2.3-8.1 [facility] Comment on above: Performed By: #### A DIFF, PBNP, TROPHS, CBC, GFR, MDW, ANEU, BMP #### [id number] [place], [place] [address] CBCon 07-10-2025 Erythrocyte distribution width (RBC) [Ratio] 17.7 % High 11.5-15.5 [facility] Comment on above: Performed By: #### A DIFF, PBNP, TROPHS, CBC, GFR, MDW, ANEU, BMP #### [id number] [place], [place] [address] Hematocrit (Bld) [Volume fraction] 35.3 % Normal 34.0-46.0 [facility] Comment on above: Performed By: #### A DIFF, PBNP, TROPHS, CBC, GFR, MDW, ANEU, BMP #### [address] [address] Hgb 11.4 G/dL Low 12.0-16.0 [facility] Comment on above: Performed By: #### A DIFF, PBNP, TROPHS, CBC, GFR, MDW, ANEU, BMP #### [place] [address] MCH (RBC) [Entitic mass] 29.5 pg Normal 27.0-33.0 [facility] Comment on above: Performed By: #### A DIFF, PBNP, TROPHS, CBC, GFR, MDW, ANEU, BMP #### [address] [address] MCHC 32.4 G/dL Normal 32.0-36.0 [facility] Comment on above: Performed By: #### A DIFF, PBNP, TROPHS, CBC, GFR, MDW, ANEU, BMP #### [address] [address] MCV (RBC) [Entitic vol] 91.1 fL Normal 80.0-99.0 [facility] Comment on above: Performed By: #### A DIFF, PBNP, TROPHS, CBC, GFR, MDW, ANEU, BMP #### [address] [address] Platelet 383 10 3/mcL Normal 150-450 [facility] Comment on above: Performed By: #### A DIFF, PBNP, TROPHS, CBC, GFR, MDW, ANEU, BMP #### [address] [address] Platelet mean volume (Bld) [Entitic vol] 8.4 fL Normal 6.6-10.5 [facility] Comment on above: Performed By: #### A DIFF, PBNP, TROPHS, CBC, GFR, MDW, ANEU, BMP #### [place] [address] RBC 3.87 10 6/mcL Low 4.10-5.30 [facility] Comment on above: Performed By: #### A DIFF, PBNP, TROPHS, CBC, GFR, MDW, ANEU, BMP #### [address] [address] WBC 8.3 10 3/mcL Normal 4.5-10.8 [facility] Comment on above: Performed By: #### A DIFF, PBNP, TROPHS, CBC, GFR, MDW, ANEU, BMP #### [address] [address] CMPon 07-10-2025 ALT [Catalytic activity/Vol] 13 U/L Low 14-59 [facility] Comment on above: Performed By: #### A DIFF, PBNP, TROPHS, CBC, GFR, MDW, ANEU, BMP #### [address] [address] Albumin Level 2.7 G/dL Low 3.4-4.8 [facility] Comment on above: Performed By: #### A DIFF, PBNP, TROPHS, CBC, GFR, MDW, ANEU, BMP #### [address] [address] Albumin/Globulin [Mass ratio] 0.8 {ratio} Low 1.1-2.5 [facility] Comment on above: Performed By: #### A DIFF, PBNP, TROPHS, CBC, GFR, MDW, ANEU, BMP #### [address] [address] ALP [Catalytic activity/Vol] 72 U/L Normal 40-135 [facility] Comment on above: Performed By: #### A DIFF, PBNP, TROPHS, CBC, GFR, MDW, ANEU, BMP #### [address] [address] AST [Catalytic activity/Vol] 15 U/L Normal 10-40 [facility] Comment on above: Performed By: #### A DIFF, PBNP, TROPHS, CBC, GFR, MDW, ANEU, BMP #### [address] [address] Bili Total 0.2 mg/dL Normal 0.2-1.0 [facility] Comment on above: Result Comment: Use of this assay is not recommended for patients undergoing treatment with eltrombopag due to the potential for falsely elevated results. Performed By: #### A DIFF, PBNP, TROPHS, CBC, GFR, MDW, ANEU, BMP #### [address] [address] BUN/Creatinine Ratio 26 ratio Normal 7-27 [facility] Comment on above: Performed By: #### A DIFF, PBNP, TROPHS, CBC, GFR, MDW, ANEU, BMP #### [place] [address] Calcium [Mass/Vol] 8.6 mg/dL Normal 8.4-10.2 [facility] Comment on above: Performed By: #### A DIFF, PBNP, TROPHS, CBC, GFR, MDW, ANEU, BMP #### [address] [address] Chloride [Moles/Vol] 107 mmol/L Normal 98-107 [facility] Comment on above: Performed By: #### A DIFF, PBNP, TROPHS, CBC, GFR, MDW, ANEU, BMP #### [address] [address] CO2 [Moles/Vol] 37 mmol/L High 23-31 [facility] Comment on above: Performed By: #### A DIFF, PBNP, TROPHS, CBC, GFR, MDW, ANEU, BMP #### [address] [address] Creatinine [Mass/Vol] 0.88 mg/dL Normal 0.51-0.95 [facility] Comment on above: Performed By: #### A DIFF, PBNP, TROPHS, CBC, GFR, MDW, ANEU, BMP #### [address] [address] Electrolyte Balance 0.0 mEq/L Low 4.0-15.0 [facility] Comment on above: Performed By: #### A DIFF, PBNP, TROPHS, CBC, GFR, MDW, ANEU, BMP #### [address] [address] Globulin 3.4 G/dL Normal 2.7-4.4 [facility] Comment on above: Performed By: #### A DIFF, PBNP, TROPHS, CBC, GFR, MDW, ANEU, BMP #### [address] [address] Glucose [Mass/Vol] 111 mg/dL High 83-110 [facility] Comment on above: Performed By: #### A DIFF, PBNP, TROPHS, CBC, GFR, MDW, ANEU, BMP #### [address] [address] Potassium [Moles/Vol] 4.4 mmol/L Normal 3.5-5.1 [facility] Comment on above: Performed By: #### A DIFF, PBNP, TROPHS, CBC, GFR, MDW, ANEU, BMP #### [address] [address] Sodium [Moles/Vol] 144 mmol/L Normal 136-145 [facility] Comment on above: Performed By: #### A DIFF, PBNP, TROPHS, CBC, GFR, MDW, ANEU, BMP #### [address] [address] Total Protein 6.1 G/dL Low 6.4-8.2 [facility] Comment on above: Performed By: #### A DIFF, PBNP, TROPHS, CBC, GFR, MDW, ANEU, BMP #### [address] [address] Urea nitrogen [Mass/Vol] 23 mg/dL High 7-18 [facility] Comment on above: Performed By: #### A DIFF, PBNP, TROPHS, CBC, GFR, MDW, ANEU, BMP #### [address] [place], [place] [address] LABORATORYOrdered By: SYSTEM SYSTEM on 07-10-2025 Albumin [...] 07-10-2025 Magnesium [Mass/Vol] 2.0 mg/dL Normal 1.8-2.4 [facility] Comment on above: Performed By: #### A DIFF, PBNP, TROPHS, CBC, GFR, MDW, ANEU, BMP #### [address] [address] .Auto Diffon 07-09-2025 Basophil, Absolute 0.1 10 3/mcL Normal 0.0-0.3 [facility] Comment on above: Performed By: #### M RSAPCR #### [address] [address] #### CVFLURV #### [address] [address] Basophils/100 WBC (Bld) 0.9 % Normal 0.0-2.5 [facility] Comment on above: Performed By: #### M RSAPCR #### [address] [address] #### CVFLURV #### [address] [address] Eosinophil, Absolute 0.1 10 3/mcL Normal 0.0-0.7 [facility] Comment on above: Performed By: #### M RSAPCR #### [place] [address] #### CVFLURV #### [address] [address] Eosinophils/100 WBC (Bld) 1.3 % Normal 0.0-6.0 [facility] Comment on above: Performed By: #### M RSAPCR #### [place] [address] #### CVFLURV #### [address] [address] Lymphocyte, Absolute 1.3 10 3/mcL Normal 0.9-4.3 [facility] Comment on above: Performed By: #### M RSAPCR #### [place] [address] #### CVFLURV #### [address] [address] Lymphocytes/100 WBC (Bld) 12.9 % Low 20.0-40.0 [facility] Comment on above: Performed By: #### M RSAPCR #### [place] [address] #### CVFLURV #### [address] [address] Monocyte, Absolute 1.1 10 3/mcL Normal 0.1-1.4 [facility] Comment on above: Performed By: #### M RSAPCR #### [place] [address] #### CVFLURV #### [address] [address] Monocytes/100 WBC (Bld) 11.1 % Normal 2.0-13.0 [facility] Comment on above: Performed By: #### M RSAPCR #### [place] [address] #### CVFLURV #### [address] [address] Neutrophils/100 WBC (Bld) 73.8 % Normal 50.0-75.0 [facility] Comment on above: Performed By: #### M RSAPCR #### [place] [address] #### CVFLURV #### [address] [address] .GFRon 07-09-2025 Estimated Glomerular Filtration Rate 93 ml/min/1.73sqm Normal [facility] Comment on above: Result Comment: Stages [...] results. Performed By: #### M RSAPCR #### [place] [address] #### CVFLURV #### [address] [address] .MDWon 07-09-2025 Monocyte Distribution Width 17.29 Normal 0.00-20.00 [facility] Comment on above: Result Comment: For ED adult patients suspected of sepsis, MDW<=20.0 does not rule out sepsis or risk of sepsis Performed By: #### M RSAPCR #### [place] [address] #### CVFLURV #### [address] [address] .NEUABSon 07-09-2025 Neutrophil, Absolute 7.3 10 3/mcL Normal 2.3-8.1 [facility] Comment on above: Performed By: #### M RSAPCR #### [place] [address] #### CVFLURV #### [address] [address] BMPon 07-09-2025 BUN/Creatinine Ratio 26 ratio Normal 7-27 [facility] Comment on above: Performed By: #### M RSAPCR #### [place] [address] #### CVFLURV #### [address] [address] Calcium [Mass/Vol] 8.7 mg/dL Normal 8.4-10.2 [facility] Comment on above: Performed By: #### M RSAPCR #### [place] [address] #### CVFLURV #### [place] [address] Chloride [Moles/Vol] 106 mmol/L Normal 98-107 [facility] Comment on above: Performed By: #### M RSAPCR #### [place] [address] #### CVFLURV #### [address] [address] CO2 [Moles/Vol] 33 mmol/L High 23-31 [facility] Comment on above: Performed By: #### M RSAPCR #### [place] [address] #### CVFLURV #### [address] [address] Creatinine [Mass/Vol] 0.70 mg/dL Normal 0.51-0.95 [facility] Comment on above: Performed By: #### M RSAPCR #### [place] [address] #### CVFLURV #### [address] [address] Electrolyte Balance 1.0 mEq/L Low 4.0-15.0 [facility] Comment on above: Performed By: #### M RSAPCR #### [place] [address] #### CVFLURV #### [address] [address] Glucose [Mass/Vol] 118 mg/dL High 83-110 [facility] Comment on above: Performed By: #### M RSAPCR #### [place] [address] #### CVFLURV #### [address] [address] Potassium [Moles/Vol] 3.8 mmol/L Normal 3.5-5.1 [facility] Comment on above: Performed By: #### M RSAPCR #### [place] [address] #### CVFLURV #### [address] [address] Sodium [Moles/Vol] 140 mmol/L Normal 136-145 [facility] Comment on above: Performed By: #### M RSAPCR #### [place] [address] #### CVFLURV #### [address] [address] Urea nitrogen [Mass/Vol] 18 mg/dL Normal 7-18 [facility] Comment on above: Performed By: #### M RSAPCR #### [place] [address] #### CVFLURV #### [address] [address] CBCon 07-09-2025 Erythrocyte distribution width (RBC) [Ratio] 17.8 % High 11.5-15.5 [facility] Comment on above: Performed By: #### M RSAPCR #### [place] [address] #### CVFLURV #### [address] [address] Hematocrit (Bld) [Volume fraction] 36.6 % Normal 34.0-46.0 [facility] Comment on above: Performed By: #### M RSAPCR #### [place] [address] #### CVFLURV #### [address] [address] Hgb 11.9 G/dL Low 12.0-16.0 [facility] Comment on above: Performed By: #### M RSAPCR #### [place] [address] #### CVFLURV #### [address] [address] MCH (RBC) [Entitic mass] 29.5 pg Normal 27.0-33.0 [facility] Comment on above: Performed By: #### M RSAPCR #### [place] [address] #### CVFLURV #### [place] [address] MCHC 32.6 G/dL Normal 32.0-36.0 [facility] Comment on above: Performed By: #### M RSAPCR #### [place] [address] #### CVFLURV #### [address] [address] MCV (RBC) [Entitic vol] 90.5 fL Normal 80.0-99.0 [facility] Comment on above: Performed By: #### M RSAPCR #### [place] [address] #### CVFLURV #### [address] [address] Platelet 406 10 3/mcL Normal 150-450 [facility] Comment on above: Performed By: #### M RSAPCR #### [place] [address] #### CVFLURV #### [place] [address] Platelet mean volume (Bld) [Entitic vol] 7.7 fL Normal 6.6-10.5 [facility] Comment on above: Performed By: #### M RSAPCR #### [place] [address] #### CVFLURV #### [place] [address] RBC 4.04 10 6/mcL Low 4.10-5.30 [facility] Comment on above: Performed By: #### M RSAPCR #### [place] [address] #### CVFLURV #### [place] [address] WBC 9.9 10 3/mcL Normal 4.5-10.8 [facility] Comment on above: Performed By: #### M RSAPCR #### [place] [address] #### CVFLURV #### [place] [address] CVFLURVon 07-09-2025 FLU A PCR Negative Normal Negative [facility] Comment on above: Performed By: #### C VFLURV #### [place] [address] FLU B PCR Negative Normal Negative [facility] Comment on above: Performed By: #### C VFLURV #### [place] [address] RSV PCR Negative Normal Negative [facility] Comment on above: Performed By: #### C VFLURV #### [place] [address] SARS-CoV-2 (COVID-19) RNA IVANA+probe Ql (Unsp spec) Negative Normal Negative [facility] Comment on above: Result Comment: Resu [...] Performed By: #### C VFLURV #### [place] [address] LABORATORYOrdered By: SYSTEM SYSTEM on 07-09-2025 Basophils [...] ng/L Male: 0-76 ng/L Testing performed on [employer] using a homogeneous sandwich chemiluminescent immunoassay based on [employer] technology. Urea nitrogen [Mass/Vol] 18 mg/dL Normal [...] Sensitivity Troponin I 18 ng/L Normal 0-51 [facility] Comment on above: Result Comment: High Sensitive Troponin I Reference Ranges: Female: 0-51 ng/L Male: 0-76 ng/L Testing performed on [employer] using a homogeneous sandwich chemiluminescent immunoassay based on [employer] technology. Performed By: #### M RSAPCR #### [address] [address] #### CVFLURV #### [facility] [address] [place], [place] [address] XR KNEE THREE VIEWS RIGHTon 07-09-2025 XR [...] 6:11:06 AM Ordering Provider: BRIAN TRINIDAD Normal [facility] .Auto Diffon 06-15-2025 Basophil, Absolute 0.1 10 3/mcL Normal 0.0-0.3 [facility] Comment on above: Performed By: #### M G, CBC, GFR, ADIFF, BMP, ANEU #### [address] [address] Basophils/100 WBC (Bld) 1.4 % Normal 0.0-2.5 [facility] Comment on above: Performed By: #### M G, CBC, GFR, ADIFF, BMP, ANEU #### [address] [address] Eosinophil, Absolute 0.2 10 3/mcL Normal 0.0-0.7 [facility] Comment on above: Performed By: #### M G, CBC, GFR, ADIFF, BMP, ANEU #### [address] [address] Eosinophils/100 WBC (Bld) 3.8 % Normal 0.0-6.0 [facility] Comment on above: Performed By: #### M G, CBC, GFR, ADIFF, BMP, ANEU #### [address] [address] Lymphocyte, Absolute 2.2 10 3/mcL Normal 0.9-4.3 [facility] Comment on above: Performed By: #### M G, CBC, GFR, ADIFF, BMP, ANEU #### [address] [address] Lymphocytes/100 WBC (Bld) 39.1 % Normal 20.0-40.0 [facility] Comment on above: Performed By: #### M G, CBC, GFR, ADIFF, BMP, ANEU #### [address] [address] Monocyte, Absolute 0.8 10 3/mcL Normal 0.1-1.4 [facility] Comment on above: Performed By: #### M G, CBC, GFR, ADIFF, BMP, ANEU #### [address] [address] Monocytes/100 WBC (Bld) 14.1 % High 2.0-13.0 [facility] Comment on above: Performed By: #### M G, CBC, GFR, ADIFF, BMP, ANEU #### [address] [address] Neutrophils/100 WBC (Bld) 41.6 % Low 50.0-75.0 [facility] Comment on above: Performed By: #### M G, CBC, GFR, ADIFF, BMP, ANEU #### [address] [address] .GFRon 06-15-2025 Estimated Glomerular Filtration Rate 69 ml/min/1.73sqm Normal [facility] Comment on above: Result Comment: Stages [...] G, CBC, GFR, ADIFF, BMP, ANEU #### [place] [address] .NEUABSon 06-15-2025 Neutrophil, Absolute 2.3 10 3/mcL Normal 2.3-8.1 [facility] Comment on above: Performed By: #### M G, CBC, GFR, ADIFF, BMP, ANEU #### [place] [id number] BMPon 06-15-2025 BUN/Creatinine Ratio 27.8 ratio High 10.0-22.0 [facility] Comment on above: Performed By: #### M G, CBC, GFR, ADIFF, BMP, ANEU #### [place] [address] Calcium [Mass/Vol] 8.6 mg/dL Low 8.7-10.4 [facility] Comment on above: Performed By: #### M G, CBC, GFR, ADIFF, BMP, ANEU #### [place] [address] Chloride [Moles/Vol] 107 mmol/L Normal 98-110 [facility] Comment on above: Performed By: #### M G, CBC, GFR, ADIFF, BMP, ANEU #### [address] [address] CO2 [Moles/Vol] 34 mmol/L High 22-32 [facility] Comment on above: Performed By: #### M G, CBC, GFR, ADIFF, BMP, ANEU #### [address] [address] Creatinine [Mass/Vol] 0.90 mg/dL Normal 0.50-1.20 [facility] Comment on above: Result Comment: Test ing performed on [employer] analyzer using enzymatic creatinine methodology. Performed By: #### M G, CBC, GFR, ADIFF, BMP, ANEU #### [address] [address] Electrolyte Balance 5.0 mEq/L Normal 4.0-15.0 [facility] Comment on above: Performed By: #### M G, CBC, GFR, ADIFF, BMP, ANEU #### [address] [address] Glucose [Mass/Vol] 126 mg/dL High 82-115 [facility] Comment on above: Performed By: #### M G, CBC, GFR, ADIFF, BMP, ANEU #### [address] [address] Potassium [Moles/Vol] 4.1 mmol/L Normal 3.5-5.0 [facility] Comment on above: Performed By: #### M G, CBC, GFR, ADIFF, BMP, ANEU #### [address] [address] Sodium [Moles/Vol] 146 mmol/L High 136-145 [facility] Comment on above: Performed By: #### M G, CBC, GFR, ADIFF, BMP, ANEU #### [address] [address] Urea nitrogen [Mass/Vol] 25.0 mg/dL High 8.0-22.0 [facility] Comment on above: Performed By: #### M G, CBC, GFR, ADIFF, BMP, ANEU #### [address] [address] CBCon 06-15-2025 Erythrocyte distribution width (RBC) [Ratio] 17.8 % High 11.5-15.5 [facility] Comment on above: Performed By: #### M G, CBC, GFR, ADIFF, BMP, ANEU #### [place] [address] Hematocrit (Bld) [Volume fraction] 34.8 % Normal 34.0-46.0 [facility] Comment on above: Performed By: #### M G, CBC, GFR, ADIFF, BMP, ANEU #### [place] [address] Hgb 11.4 G/dL Low 12.0-16.0 [facility] Comment on above: Performed By: #### M G, CBC, GFR, ADIFF, BMP, ANEU #### [place] [address] MCH (RBC) [Entitic mass] 30.1 pg Normal 27.0-33.0 [facility] Comment on above: Performed By: #### M G, CBC, GFR, ADIFF, BMP, ANEU #### [place] [address] MCHC 32.7 G/dL Normal 32.0-36.0 [facility] Comment on above: Performed By: #### M G, CBC, GFR, ADIFF, BMP, ANEU #### [place] [address] MCV (RBC) [Entitic vol] 91.8 fL Normal 80.0-99.0 [facility] Comment on above: Performed By: #### M G, CBC, GFR, ADIFF, BMP, ANEU #### [place] [address] Platelet 346 10 3/mcL Normal 150-450 [facility] Comment on above: Performed By: #### M G, CBC, GFR, ADIFF, BMP, ANEU #### [place] [address] Platelet mean volume (Bld) [Entitic vol] 8.7 fL Normal 6.6-10.5 [facility] Comment on above: Performed By: #### M G, CBC, GFR, ADIFF, BMP, ANEU #### [place] [id number] [place] [address] RBC 3.79 10 6/mcL Low 4.10-5.30 [facility] Comment on above: Performed By: #### M G, CBC, GFR, ADIFF, BMP, ANEU #### [place] [id number] [address] [place] [address] WBC 5.6 10 3/mcL Normal 4.5-10.8 [facility] Comment on above: Performed By: #### M G, CBC, GFR, ADIFF, BMP, ANEU #### [address] [address] LABORATORYOrdered By: SYSTEM SYSTEM on 06-15-2025 Basophils [...] above: Interpretive Data: T esting performed on [employer] analyzer using enzymatic creatinine methodology. Electrolyte Balance [...] 06-15-2025 Magnesium [Mass/Vol] 1.8 mg/dL Normal 1.6-2.4 [facility] Comment on above: Performed By: #### M G, CBC, GFR, ADIFF, BMP, ANEU #### [address] [address] .GFRon 06-14-2025 Estimated Glomerular Filtration Rate 62 ml/min/1.73sqm Normal [facility] Comment on above: Result Comment: Stages [...] results. Performed By: #### T ARIELLE #### [address] [address] BMPon 06-14-2025 BUN/Creatinine Ratio 26.5 ratio High 10.0-22.0 [facility] Comment on above: Performed By: #### T GOMEZ #### [address] [address] Calcium [Mass/Vol] 8.1 mg/dL Low 8.7-10.4 [facility] Comment on above: Performed By: #### T GOMEZ #### [address] [address] Chloride [Moles/Vol] 104 mmol/L Normal 98-110 [facility] Comment on above: Performed By: #### T GOMEZ #### [address] [address] CO2 [Moles/Vol] 33 mmol/L High 22-32 [facility] Comment on above: Performed By: #### T GOMEZ #### [place] [id number] Creatinine [Mass/Vol] 0.98 mg/dL Normal 0.50-1.20 [facility] Comment on above: Result Comment: Test ing performed on [employer] analyzer using enzymatic creatinine methodology. Performed By: #### T GOMEZ #### [address] [address] Electrolyte Balance 8.0 mEq/L Normal 4.0-15.0 [facility] Comment on above: Performed By: #### T GOMEZ #### [address] [address] Glucose [Mass/Vol] 118 mg/dL High 82-115 [facility] Comment on above: Performed By: #### T GOMEZ #### [place] [id number] Potassium [Moles/Vol] 4.2 mmol/L Normal 3.5-5.0 [facility] Comment on above: Result Comment: Spec imen slightly hemolyzed. Performed By: #### T GOMEZ #### [place] [id number] Sodium [Moles/Vol] 145 mmol/L Normal 136-145 [facility] Comment on above: Performed By: #### T GOMEZ #### [place] [id number] Urea nitrogen [Mass/Vol] 26.0 mg/dL High 8.0-22.0 [facility] Comment on above: Performed By: #### T [facility] #### [place] [address] LABORATORYOrdered By: SYSTEM SYSTEM on 06-14-2025 Calcium [...] above: Interpretive Data: T esting performed on [employer] analyzer using enzymatic creatinine methodology. Electrolyte Balance [...] 06-14-2025 Magnesium [Mass/Vol] 1.9 mg/dL Normal 1.6-2.4 [facility] Comment on above: Performed By: #### T GOMEZ #### [address] [address] XR CHEST 1 VIEWon 06-14-2025 XR CHEST [...] 06/14/2025 10:24:03 AM Ordering Provider: JOAN Rivero [facility] .Auto Diffon 06-13-2025 Basophil, Absolute 0.0 10 3/mcL Normal 0.0-0.3 [facility] Comment on above: Performed By: #### T GOMEZ #### [address] [address] Basophils/100 WBC (Bld) 0.4 % Normal 0.0-2.5 [facility] Comment on above: Performed By: #### T GOMEZ #### [address] [address] Eosinophil, Absolute 0.0 10 3/mcL Normal 0.0-0.7 [facility] Comment on above: Performed By: #### T GOMEZ #### [address] [address] Eosinophils/100 WBC (Bld) 0.0 % Normal 0.0-6.0 [facility] Comment on above: Performed By: #### T GOMEZ #### [facility] [address] [place] [address] Lymphocyte, Absolute 0.4 10 3/mcL Low 0.9-4.3 [facility] Comment on above: Performed By: #### T GOMEZ #### [address] [address] Lymphocytes/100 WBC (Bld) 12.3 % Low 20.0-40.0 [facility] Comment on above: Performed By: #### T GOMEZ #### [address] [address] Monocyte, Absolute 0.2 10 3/mcL Normal 0.1-1.4 [facility] Comment on above: Performed By: #### T GOMEZ #### [address] [address] Monocytes/100 WBC (Bld) 6.6 % Normal 2.0-13.0 [facility] Comment on above: Performed By: #### T GOMEZ #### [address] [address] Neutrophils/100 WBC (Bld) 80.7 % High 50.0-75.0 [facility] Comment on above: Performed By: #### T GOMEZ #### [address] [address] .GFRon 06-13-2025 Estimated Glomerular Filtration Rate 68 ml/min/1.73sqm Normal [facility] Comment on above: Result Comment: Stages [...] results. Performed By: #### T GOMEZ #### [address] [address] .NEUABSon 06-13-2025 Neutrophil, Absolute 2.6 10 3/mcL Normal 2.3-8.1 [facility] Comment on above: Performed By: #### T GOMEZ #### [address] [address] BMPon 06-13-2025 BUN/Creatinine Ratio 18.7 ratio Normal 10.0-22.0 [facility] Comment on above: Performed By: #### T GOMEZ #### [address] [address] Calcium [Mass/Vol] 8.3 mg/dL Low 8.7-10.4 [facility] Comment on above: Performed By: #### T GOMEZ #### [address] [address] Chloride [Moles/Vol] 101 mmol/L Normal 98-110 [facility] Comment on above: Performed By: #### T GOMEZ #### [address] [address] CO2 [Moles/Vol] 34 mmol/L High 22-32 [facility] Comment on above: Performed By: #### T GOMEZ #### [address] [address] Creatinine [Mass/Vol] 0.91 mg/dL Normal 0.50-1.20 [facility] Comment on above: Result Comment: Test ing performed on [employer] analyzer using enzymatic creatinine methodology. Performed By: #### T GOMEZ #### [address] [address] Electrolyte Balance 9.0 mEq/L Normal 4.0-15.0 [facility] Comment on above: Performed By: #### T GOMEZ #### [place] [id number] Glucose [Mass/Vol] 125 mg/dL High 82-115 [facility] Comment on above: Performed By: #### T GOMEZ #### [place] [phone] Potassium [Moles/Vol] 3.6 mmol/L Normal 3.5-5.0 [facility] Comment on above: Performed By: #### T GOMEZ #### [place] [phone] Sodium [Moles/Vol] 144 mmol/L Normal 136-145 [facility] Comment on above: Performed By: #### T GOMEZ #### [place] [phone] Urea nitrogen [Mass/Vol] 17.0 mg/dL Normal 8.0-22.0 [facility] Comment on above: Performed By: #### T GOMEZ #### [place] [address] CBCon 06-13-2025 Erythrocyte distribution width (RBC) [Ratio] 17.4 % High 11.5-15.5 [facility] Comment on above: Performed By: #### T GOMEZ #### [place] [phone] Hematocrit (Bld) [Volume fraction] 37.9 % Normal 34.0-46.0 [facility] Comment on above: Performed By: #### T GOMEZ #### [place] [address] Hgb 12.3 G/dL Normal 12.0-16.0 [facility] Comment on above: Performed By: #### T GOMEZ #### [place] [phone] MCH (RBC) [Entitic mass] 29.3 pg Normal 27.0-33.0 [facility] Comment on above: Performed By: #### T GOMEZ #### [place] [phone] MCHC 32.5 G/dL Normal 32.0-36.0 [facility] Comment on above: Performed By: #### T GOMEZ #### [address] [address] MCV (RBC) [Entitic vol] 90.3 fL Normal 80.0-99.0 [facility] Comment on above: Performed By: #### T GOMEZ #### [place] [phone] Platelet 452 10 3/mcL High 150-450 [facility] Comment on above: Performed By: #### T GOMEZ #### [place] [address] Platelet mean volume (Bld) [Entitic vol] 8.7 fL Normal 6.6-10.5 [facility] Comment on above: Performed By: #### T GOMEZ #### [place] [address] RBC 4.20 10 6/mcL Normal 4.10-5.30 [facility] Comment on above: Performed By: #### T GOMEZ #### [place] [address] WBC 3.2 10 3/mcL Low 4.5-10.8 [facility] Comment on above: Performed By: #### T GOMEZ #### [place] [address] LABORATORYOrdered By: SYSTEM SYSTEM on 06-13-2025 Troponin I.cardiac DL <= 0.01 ng/mL [Mass/Vol] 17 ng/L Normal 0 - 34 ng/L ADM SS Comment on above: Interpretive Data: High Sensitive Troponin I Reference Ranges: Female: 0-34 ng/L Male: 0-54 ng/L Testing performed on [employer] analyzer using direct chemiluminescent technology. Basophils (Bld) [...] above: Interpretive Data: T esting performed on [employer] analyzer using enzymatic creatinine methodology. Electrolyte Balance [...] 06-13-2025 Magnesium [Mass/Vol] 1.8 mg/dL Normal 1.6-2.4 [facility] Comment on above: Performed By: #### T [facility] #### [address] 06-13-2025 High Sensitivity Troponin I 17 ng/L Normal 0-34 [facility] Comment on above: Result Comment: High Sensitive Troponin I Reference Ranges: Female: 0-34 ng/L Male: 0-54 ng/L Testing performed on [employer] IM analyzer using direct chemiluminescent technology. Performed By: #### T [facility] #### [address] [address] .Auto Diffon 06-12-2025 Basophil, Absolute 0.1 10 3/mcL Normal 0.0-0.3 [facility] Comment on above: Performed By: #### A DIFF, PBNP, TROPHS, CBC, GFR, MDW, ANEU, BMP #### [address] [address] Basophils/100 WBC (Bld) 1.0 % Normal 0.0-2.5 [facility] Comment on above: Performed By: #### A DIFF, PBNP, TROPHS, CBC, GFR, MDW, ANEU, BMP #### [address] [address] Eosinophil, Absolute 0.1 10 3/mcL Normal 0.0-0.7 [facility] Comment on above: Performed By: #### A DIFF, PBNP, TROPHS, CBC, GFR, MDW, ANEU, BMP #### [address] [address] Eosinophils/100 WBC (Bld) 1.3 % Normal 0.0-6.0 [facility] Comment on above: Performed By: #### A DIFF, PBNP, TROPHS, CBC, GFR, MDW, ANEU, BMP #### [address] [address] Lymphocyte, Absolute 2.0 10 3/mcL Normal 0.9-4.3 [facility] Comment on above: Performed By: #### A DIFF, PBNP, TROPHS, CBC, GFR, MDW, ANEU, BMP #### [address] [address] Lymphocytes/100 WBC (Bld) 25.0 % Normal 20.0-40.0 [facility] Comment on above: Performed By: #### A DIFF, PBNP, TROPHS, CBC, GFR, MDW, ANEU, BMP #### [address] [address] [place], [place] [address] Monocyte, Absolute 0.9 10 3/mcL Normal 0.1-1.4 [facility] Comment on above: Performed By: #### A DIFF, PBNP, TROPHS, CBC, GFR, MDW, ANEU, BMP #### [address] [address] Monocytes/100 WBC (Bld) 11.3 % Normal 2.0-13.0 [facility] Comment on above: Performed By: #### A DIFF, PBNP, TROPHS, CBC, GFR, MDW, ANEU, BMP #### [address] [address] Neutrophils/100 WBC (Bld) 61.4 % Normal 50.0-75.0 [facility] Comment on above: Performed By: #### A DIFF, PBNP, TROPHS, CBC, GFR, MDW, ANEU, BMP #### [address] [address] .GFRon 06-12-2025 Estimated Glomerular Filtration Rate 87 ml/min/1.73sqm [facility] Comment on above: Result Comment: Stages of [...] the eGFR results. Performed By: #### T [facility] #### [facility] [address] [place] [address] Estimated Glomerular Filtration Rate 79 ml/min/1.73sqm Normal [facility] Comment on above: Result Comment: Stages [...] TROPHS, CBC, GFR, MDW, ANEU, BMP #### [address] [address] .MDWon 06-12-2025 Monocyte Distribution Width 17.54 Normal 0.00-20.00 [facility] Comment on above: Result Comment: For ED adult patients suspected of sepsis, MDW<=20.0 does not rule out sepsis or risk of sepsis Performed By: #### A DIFF, PBNP, TROPHS, CBC, GFR, MDW, ANEU, BMP #### [address] [address] .NEUABSon 06-12-2025 Neutrophil, Absolute 5.0 10 3/mcL Normal 2.3-8.1 [facility] Comment on above: Performed By: #### A DIFF, PBNP, TROPHS, CBC, GFR, MDW, ANEU, BMP #### [address] [address] BMPon 06-12-2025 BUN/Creatinine Ratio 16.2 ratio Normal 10.0-22.0 [facility] Comment on above: Performed By: #### T ARIELLE #### [address] [address] Calcium [Mass/Vol] 8.6 mg/dL Low 8.7-10.4 [facility] Comment on above: Performed By: #### T ARIELLE #### [address] [address] Chloride [Moles/Vol] 103 mmol/L Normal 98-110 [facility] Comment on above: Performed By: #### T GOMEZ #### [address] [address] CO2 [Moles/Vol] 30 mmol/L Normal 22-32 [facility] Comment on above: Performed By: #### T GOMEZ #### [address] [address] Creatinine [Mass/Vol] 0.74 mg/dL Normal 0.50-1.20 [facility] Comment on above: Result Comment: Test ing performed on [employer] analyzer using enzymatic creatinine methodology. Performed By: #### T GOMEZ #### [place] [phone] Electrolyte Balance 10.0 mEq/L Normal 4.0-15.0 [facility] Comment on above: Performed By: #### T GOMEZ #### [place] [phone] Glucose [Mass/Vol] 124 mg/dL High 82-115 [facility] Comment on above: Performed By: #### T GOMEZ #### [place] [phone] Potassium [Moles/Vol] 3.8 mmol/L Normal 3.5-5.0 [facility] Comment on above: Performed By: #### T GOMEZ #### [place] [phone] Sodium [Moles/Vol] 143 mmol/L Normal 136-145 [facility] Comment on above: Performed By: #### T GOMEZ #### [place] [phone] Urea nitrogen [Mass/Vol] 12.0 mg/dL Normal 8.0-22.0 [facility] Comment on above: Performed By: #### T GOMEZ #### [address] [address] CBCon 06-12-2025 Erythrocyte distribution width (RBC) [Ratio] 18.1 % High 11.5-15.5 [facility] Comment on above: Performed By: #### A DIFF, PBNP, TROPHS, CBC, GFR, MDW, ANEU, BMP #### [address] [address] Hematocrit (Bld) [Volume fraction] 44.2 % Normal 34.0-46.0 [facility] Comment on above: Performed By: #### A DIFF, PBNP, TROPHS, CBC, GFR, MDW, ANEU, BMP #### [place] [id number] [place], [place] [address] Hgb 13.8 G/dL Normal 12.0-16.0 [facility] Comment on above: Performed By: #### A DIFF, PBNP, TROPHS, CBC, GFR, MDW, ANEU, BMP #### [address] [address] MCH (RBC) [Entitic mass] 29.3 pg Normal 27.0-33.0 [facility] Comment on above: Performed By: #### A DIFF, PBNP, TROPHS, CBC, GFR, MDW, ANEU, BMP #### [address] [address] MCHC 31.2 G/dL Low 32.0-36.0 [facility] Comment on above: Performed By: #### A DIFF, PBNP, TROPHS, CBC, GFR, MDW, ANEU, BMP #### [address] [address] MCV (RBC) [Entitic vol] 93.7 fL Normal 80.0-99.0 [facility] Comment on above: Performed By: #### A DIFF, PBNP, TROPHS, CBC, GFR, MDW, ANEU, BMP #### [address] [address] Platelet 455 10 3/mcL High 150-450 [facility] Comment on above: Performed By: #### A DIFF, PBNP, TROPHS, CBC, GFR, MDW, ANEU, BMP #### [address] [address] Platelet mean volume (Bld) [Entitic vol] 8.3 fL Normal 6.6-10.5 [facility] Comment on above: Performed By: #### A DIFF, PBNP, TROPHS, CBC, GFR, MDW, ANEU, BMP #### [address] [address] RBC 4.71 10 6/mcL Normal 4.10-5.30 [facility] Comment on above: Performed By: #### A DIFF, PBNP, TROPHS, CBC, GFR, MDW, ANEU, BMP #### [address] [address] WBC 8.2 10 3/mcL Normal 4.5-10.8 [facility] Comment on above: Performed By: #### A DIFF, PBNP, TROPHS, CBC, GFR, MDW, ANEU, BMP #### [address] [address] CMPon 06-12-2025 Albumin Level 3.1 G/dL Low 3.4-4.8 [facility] Comment on above: Performed By: #### A DIFF, PBNP, TROPHS, CBC, GFR, MDW, ANEU, BMP #### [address] [address] Albumin/Globulin [Mass ratio] 0.8 {ratio} Low 1.1-2.5 [facility] Comment on above: Performed By: #### A DIFF, PBNP, TROPHS, CBC, GFR, MDW, ANEU, BMP #### [address] [address] ALP [Catalytic activity/Vol] 108 U/L Normal 40-135 [facility] Comment on above: Performed By: #### A DIFF, PBNP, TROPHS, CBC, GFR, MDW, ANEU, BMP #### [address] [address] ALT [Catalytic activity/Vol] 21 U/L Normal 14-59 [facility] Comment on above: Performed By: #### A DIFF, PBNP, TROPHS, CBC, GFR, MDW, ANEU, BMP #### [address] [address] AST [Catalytic activity/Vol] 32 U/L Normal 10-40 [facility] Comment on above: Performed By: #### A DIFF, PBNP, TROPHS, CBC, GFR, MDW, ANEU, BMP #### [address] [address] Bili Total 0.4 mg/dL Normal 0.2-1.0 [facility] Comment on above: Result Comment: Use of this assay is not recommended for patients undergoing treatment with eltrombopag due to the potential for falsely elevated results. Performed By: #### A DIFF, PBNP, TROPHS, CBC, GFR, MDW, ANEU, BMP #### [place] [address] BUN/Creatinine Ratio 16 ratio Normal 7-27 [facility] Comment on above: Performed By: #### A DIFF, PBNP, TROPHS, CBC, GFR, MDW, ANEU, BMP #### [address] [address] Calcium [Mass/Vol] 8.9 mg/dL Normal 8.4-10.2 [facility] Comment on above: Performed By: #### A DIFF, PBNP, TROPHS, CBC, GFR, MDW, ANEU, BMP #### [address] [address] Chloride [Moles/Vol] 106 mmol/L Normal 98-107 [facility] Comment on above: Performed By: #### A DIFF, PBNP, TROPHS, CBC, GFR, MDW, ANEU, BMP #### [address] [address] CO2 [Moles/Vol] 28 mmol/L Normal 23-31 [facility] Comment on above: Performed By: #### A DIFF, PBNP, TROPHS, CBC, GFR, MDW, ANEU, BMP #### [address] [address] Creatinine [Mass/Vol] 0.80 mg/dL Normal 0.51-0.95 [facility] Comment on above: Performed By: #### A DIFF, PBNP, TROPHS, CBC, GFR, MDW, ANEU, BMP #### [address] [address] Electrolyte Balance 7.0 mEq/L Normal 4.0-15.0 [facility] Comment on above: Performed By: #### A DIFF, PBNP, TROPHS, CBC, GFR, MDW, ANEU, BMP #### [address] [address] Globulin 4.1 G/dL Normal 2.7-4.4 [facility] Comment on above: Performed By: #### A DIFF, PBNP, TROPHS, CBC, GFR, MDW, ANEU, BMP #### [address] [address] Glucose [Mass/Vol] 183 mg/dL High 83-110 [facility] Comment on above: Performed By: #### A DIFF, PBNP, TROPHS, CBC, GFR, MDW, ANEU, BMP #### [address] [address] Potassium [Moles/Vol] 5.1 mmol/L Normal 3.5-5.1 [facility] Comment on above: Performed By: #### A DIFF, PBNP, TROPHS, CBC, GFR, MDW, ANEU, BMP #### [address] [address] Sodium [Moles/Vol] 141 mmol/L Normal 136-145 [facility] Comment on above: Performed By: #### A DIFF, PBNP, TROPHS, CBC, GFR, MDW, ANEU, BMP #### [address] [address] Total Protein 7.2 G/dL Normal 6.4-8.2 [facility] Comment on above: Performed By: #### A DIFF, PBNP, TROPHS, CBC, GFR, MDW, ANEU, BMP #### [address] [address] Urea nitrogen [Mass/Vol] 13 mg/dL Normal 7-18 [facility] Comment on above: Performed By: #### A DIFF, PBNP, TROPHS, CBC, GFR, MDW, ANEU, BMP #### [address] [address] CVFLURVon 06-12-2025 FLU A PCR Negative Normal Negative [facility] Comment on above: Performed By: #### A DIFF, PBNP, TROPHS, CBC, GFR, MDW, ANEU, BMP #### [address] [address] FLU B PCR Negative Normal Negative [facility] Comment on above: Performed By: #### A DIFF, PBNP, TROPHS, CBC, GFR, MDW, ANEU, BMP #### [address] [address] RSV PCR Negative Normal Negative [facility] Comment on above: Performed By: #### A DIFF, PBNP, TROPHS, CBC, GFR, MDW, ANEU, BMP #### [address] [address] SARS-CoV-2 (COVID-19) RNA IVANA+probe Ql (Unsp spec) Negative Normal Negative [facility] Comment on above: Result Comment: Resu [...] TROPHS, CBC, GFR, MDW, ANEU, BMP #### [place] [id number] [place], [place] [address] LABORATORYOrdered By: SYSTEM SYSTEM on 06-12-2025 Troponin I.cardiac DL <= 0.01 ng/mL [Mass/Vol] 20 ng/L Normal 0 - 34 ng/L AH ADM SS Comment on above: Interpretive Data: High Sensitive Troponin I Reference Ranges: Female: 0-34 ng/L Male: 0-54 ng/L Testing performed on [employer] IM analyzer using direct chemiluminescent technology. Natriuretic peptide.B prohormone N-Terminal IA [Mass/Vol] 8817 pg/mL High 0 - 900 pg/mL ADM SS Troponin I.cardiac DL <= 0.01 ng/mL [Mass/Vol] 22 ng/L Normal 0 - 34 ng/L AH ADM SS Comment on above: Interpretive Data: High Sensitive Troponin I Reference Ranges: Female: 0-34 ng/L Male: 0-54 ng/L Testing performed on [employer] IM analyzer using direct chemiluminescent technology. Troponin I.cardiac DL <= 0.01 ng/mL [Mass/Vol] 35 ng/L Normal 0 - 51 ng/L AO ADM SS Comment on above: Interpretive Data: H igh Sensitive Troponin I Reference Ranges: Female: 0-51 ng/L Male: 0-76 ng/L Testing performed on [employer] using a homogeneous sandwich chemiluminescent immunoassay based on [employer] technology. Albumin BCP dye [Mass/Vol] 3.1 G/dL [...] ng/L Male: 0-76 ng/L Testing performed on [employer] using a homogeneous sandwich chemiluminescent immunoassay based on [employer] technology. Urea nitrogen [Mass/Vol] 13 mg/dL Normal [...] 06-12-2025 Magnesium [Mass/Vol] 1.5 mg/dL Low 1.6-2.4 [facility] Comment on above: Performed By: #### T GOMEZ #### [facility] [address] [place] [address] PBNPon 06-12-2025 Natriuretic peptide B (Bld) [Mass/Vol] 8817 pg/mL High 0-900 [facility] Comment on above: Performed By: #### T GOMEZ #### [facility] [address] [place] [address] Natriuretic peptide B (Bld) [Mass/Vol] 9545 pg/mL High 0-125 [facility] Comment on above: Result Comment: NT-p roBNP results of less than 300 pg/mL effectively rules out acute congestive heart failure with 99% negative predictive value. Performed By: #### A DIFF, PBNP, TROPHS, CBC, GFR, MDW, ANEU, BMP #### [address] [address] [facility] High Sensitivity Troponin I 20 ng/L Normal 0-34 [facility] Comment on above: Result Comment: High Sensitive Troponin I Reference Ranges: Female: 0-34 ng/L Male: 0-54 ng/L Testing performed on [employer] IM analyzer using direct chemiluminescent technology. Performed By: #### T GOMEZ #### [place] [address] High Sensitivity Troponin I 22 ng/L Normal 0-34 [facility] Comment on above: Result Comment: High Sensitive Troponin I Reference Ranges: Female: 0-34 ng/L Male: 0-54 ng/L Testing performed on [employer] IM analyzer using direct chemiluminescent technology. Performed By: #### T GOMEZ #### [place] [address] High Sensitivity Troponin I 35 ng/L Normal 0-51 [facility] Comment on above: Result Comment: High Sensitive Troponin I Reference Ranges: Female: 0-51 ng/L Male: 0-76 ng/L Testing performed on [employer] using a homogeneous sandwich chemiluminescent immunoassay based on [employer] technology. Performed By: #### A DIFF, PBNP, TROPHS, CBC, GFR, MDW, ANEU, BMP #### [address] [address] High Sensitivity Troponin I 36 ng/L Normal 0-51 [facility] Comment on above: Result Comment: High Sensitive Troponin I Reference Ranges: Female: 0-51 ng/L Male: 0-76 ng/L Testing performed on [employer] EXL using a homogeneous sandwich chemiluminescent immunoassay based on [employer] technology. Performed By: #### A DIFF, PBNP, TROPHS, CBC, GFR, MDW, ANEU, BMP #### [address] [address] UAon 06-12-2025 Color (U) Yellow Normal [facility] Comment on above: Performed By: #### T GOMEZ #### [place] [address] Glucose (U) [Mass/Vol] Negative Normal Negative [facility] Comment on above: Performed By: #### T GOMEZ #### [place] [id number] Ketones Ql (U) Negative Normal Neg-Trace [facility] Comment on above: Performed By: #### T GOMEZ #### [place] [address] UA Appear Clear Normal Clear [facility] Comment on above: Performed By: #### T GOMEZ #### [place] [address] UA Blood Negative Normal Neg-Trace [facility] Comment on above: Performed By: #### T GOMEZ #### [place] [address] UA Leuk Est Negative Normal Negative [facility] Comment on above: Performed By: #### T GOMEZ #### [place] [address] UA Nitrite Negative Normal Negative [facility] Comment on above: Performed By: #### T GOMEZ #### [place] [address] UA pH 5.0 Normal 5.0 - 8.0 [facility] Comment on above: Performed By: #### T GOMEZ #### [place] [address] UA Protein Negative Normal Negative [facility] Comment on above: Performed By: #### T GOMEZ #### [place] [address] UA Spec Grav <=1.005 Abnormal 1.006-1.029 [facility] Comment on above: Performed By: #### T GOMEZ #### [place] [address] UA Specimen Type Clean Catch Normal [facility] Comment on above: Performed By: #### T GOMEZ #### [place] [address] UA Urobilinogen 0.2 E.U./dL Normal 0.2-1.0 [facility] Comment on above: Performed By: #### T GOMEZ #### [facility] [address] [place] [address] Urobilinogen (U) [Mass/Vol] Negative Normal Neg-Trace [facility] Comment on above: Performed By: #### T GOMEZ #### [facility] [address] [place] [address] XR CHEST 1 VIEWon 06-12-2025 XR CHEST [...] 06/12/2025 3:52:07 PM Ordering Provider: KRYS PICKETT [facility] .GFRon 05-21-2025 Estimated Glomerular Filtration Rate 79 ml/min/1.73sqm Normal [facility] Comment on above: Result Comment: Stages [...] TROPHS, CBC, GFR, MDW, ANEU, BMP #### [address] [address] BMPon 05-21-2025 BUN/Creatinine Ratio 32 ratio High 7-27 [facility] Comment on above: Performed By: #### A DIFF, PBNP, TROPHS, CBC, GFR, MDW, ANEU, BMP #### [address] [address] Calcium [Mass/Vol] 7.9 mg/dL Low 8.4-10.2 [facility] Comment on above: Performed By: #### A DIFF, PBNP, TROPHS, CBC, GFR, MDW, ANEU, BMP #### [address] [address] Chloride [Moles/Vol] 108 mmol/L High 98-107 [facility] Comment on above: Performed By: #### A DIFF, PBNP, TROPHS, CBC, GFR, MDW, ANEU, BMP #### [address] [address] CO2 [Moles/Vol] 35 mmol/L High 23-31 [facility] Comment on above: Performed By: #### A DIFF, PBNP, TROPHS, CBC, GFR, MDW, ANEU, BMP #### [address] [address] Creatinine [Mass/Vol] 0.80 mg/dL Normal 0.51-0.95 [facility] Comment on above: Performed By: #### A DIFF, PBNP, TROPHS, CBC, GFR, MDW, ANEU, BMP #### [address] [address] Electrolyte Balance 4.0 mEq/L Normal 4.0-15.0 [facility] Comment on above: Performed By: #### A DIFF, PBNP, TROPHS, CBC, GFR, MDW, ANEU, BMP #### [address] [address] Glucose [Mass/Vol] 124 mg/dL High 83-110 [facility] Comment on above: Performed By: #### A DIFF, PBNP, TROPHS, CBC, GFR, MDW, ANEU, BMP #### [address] [address] Potassium [Moles/Vol] 3.6 mmol/L Normal 3.5-5.1 [facility] Comment on above: Performed By: #### A DIFF, PBNP, TROPHS, CBC, GFR, MDW, ANEU, BMP #### [address] [address] Sodium [Moles/Vol] 147 mmol/L High 136-145 [facility] Comment on above: Performed By: #### A DIFF, PBNP, TROPHS, CBC, GFR, MDW, ANEU, BMP #### [address] [address] Urea nitrogen [Mass/Vol] 26 mg/dL High 7-18 [facility] Comment on above: Performed By: #### A DIFF, PBNP, TROPHS, CBC, GFR, MDW, ANEU, BMP #### [address] [address] LABORATORYOrdered By: SYSTEM SYSTEM on 05-21-2025 Calcium [...] 05-21-2025 Magnesium [Mass/Vol] 2.0 mg/dL Normal 1.8-2.4 [facility] Comment on above: Performed By: #### A DIFF, PBNP, TROPHS, CBC, GFR, MDW, ANEU, BMP #### [address] [address] .Auto Diffon 05-20-2025 Basophil, Absolute 0.0 10 3/mcL Normal 0.0-0.3 [facility] Comment on above: Performed By: #### M RSAPCR #### [facility] [address] [place] [address] #### CVFLURV #### [place] [id number] [place], [place] [address] Basophils/100 WBC (Bld) 0.1 % Normal 0.0-2.5 [facility] Comment on above: Performed By: #### M RSAPCR #### [place] [address] #### CVFLURV #### [address] [address] Eosinophil, Absolute 0.0 10 3/mcL Normal 0.0-0.7 [facility] Comment on above: Performed By: #### M RSAPCR #### [place] [address] #### CVFLURV #### [address] [address] Eosinophils/100 WBC (Bld) 0.2 % Normal 0.0-6.0 [facility] Comment on above: Performed By: #### M RSAPCR #### [place] [address] #### CVFLURV #### [address] [address] Lymphocyte, Absolute 2.0 10 3/mcL Normal 0.9-4.3 [facility] Comment on above: Performed By: #### M RSAPCR #### [place] [address] #### CVFLURV #### [address] [address] Lymphocytes/100 WBC (Bld) 25.3 % Normal 20.0-40.0 [facility] Comment on above: Performed By: #### M RSAPCR #### [place] [address] #### CVFLURV #### [address] [address] Monocyte, Absolute 1.0 10 3/mcL Normal 0.1-1.4 [facility] Comment on above: Performed By: #### M RSAPCR #### [place] [address] #### CVFLURV #### [address] [address] Monocytes/100 WBC (Bld) 13.5 % High 2.0-13.0 [facility] Comment on above: Performed By: #### M RSAPCR #### [place] [address] #### CVFLURV #### [address] [address] Neutrophils/100 WBC (Bld) 60.9 % Normal 50.0-75.0 [facility] Comment on above: Performed By: #### M RSAPCR #### [place] [address] #### CVFLURV #### [address] [address] .GFRon 05-20-2025 Estimated Glomerular Filtration Rate 76 ml/min/1.73sqm Normal [facility] [facility] Comment on above: Result Comment: Stages [...] results. Performed By: #### M RSAPCR #### [place] [address] #### CVFLURV #### [address] [address] .NEUABSon 05-20-2025 Neutrophil, Absolute 4.7 10 3/mcL Normal 2.3-8.1 [facility] Comment on above: Performed By: #### M RSAPCR #### [place] [address] #### CVFLURV #### [address] [address] BMPon 05-20-2025 BUN/Creatinine Ratio 33 ratio High 7-27 [facility] Comment on above: Performed By: #### M RSAPCR #### [place] [address] #### CVFLURV #### [address] [address] Calcium [Mass/Vol] 8.0 mg/dL Low 8.4-10.2 [facility] Comment on above: Performed By: #### M RSAPCR #### [place] [address] #### CVFLURV #### [address] [address] Chloride [Moles/Vol] 104 mmol/L Normal 98-107 [facility] Comment on above: Performed By: #### M RSAPCR #### [place] [address] #### CVFLURV #### [address] [address] CO2 [Moles/Vol] 38 mmol/L High 23-31 [facility] Comment on above: Performed By: #### M RSAPCR #### [place] [address] #### CVFLURV #### [address] [address] Creatinine [Mass/Vol] 0.83 mg/dL Normal 0.51-0.95 [facility] Comment on above: Performed By: #### M RSAPCR #### [place] [address] #### CVFLURV #### [address] [address] Electrolyte Balance 0.0 mEq/L Low 4.0-15.0 [facility] Comment on above: Performed By: #### M RSAPCR #### [place] [address] #### CVFLURV #### [address] [address] Glucose [Mass/Vol] 113 mg/dL High 83-110 [facility] Comment on above: Performed By: #### M RSAPCR #### [place] [address] #### CVFLURV #### [address] [address] Potassium [Moles/Vol] 4.3 mmol/L Normal 3.5-5.1 [facility] Comment on above: Performed By: #### M RSAPCR #### [place] [address] #### CVFLURV #### [address] [address] Sodium [Moles/Vol] 142 mmol/L Normal 136-145 [facility] Comment on above: Performed By: #### M RSAPCR #### [place] [address] #### CVFLURV #### [address] [address] Urea nitrogen [Mass/Vol] 27 mg/dL High 7-18 [facility] Comment on above: Performed By: #### M RSAPCR #### [place] [address] #### CVFLURV #### [address] [address] CBCon 05-20-2025 Erythrocyte distribution width (RBC) [Ratio] 17.4 % High 11.5-15.5 [facility] Comment on above: Performed By: #### M RSAPCR #### [place] [address] #### CVFLURV #### [address] [address] Hematocrit (Bld) [Volume fraction] 39.0 % Normal 34.0-46.0 [facility] Comment on above: Performed By: #### M RSAPCR #### [place] [address] #### CVFLURV #### [address] [address] Hgb 12.7 G/dL Normal 12.0-16.0 [facility] Comment on above: Performed By: #### M RSAPCR #### [place] [address] #### CVFLURV #### [address] [address] MCH (RBC) [Entitic mass] 29.8 pg Normal 27.0-33.0 [facility] Comment on above: Performed By: #### M RSAPCR #### [place] [address] #### CVFLURV #### [place] [address] MCHC 32.5 G/dL Normal 32.0-36.0 [facility] Comment on above: Performed By: #### M RSAPCR #### [place] [address] #### CVFLURV #### [place] [address] MCV (RBC) [Entitic vol] 91.8 fL Normal 80.0-99.0 [facility] Comment on above: Performed By: #### M RSAPCR #### [place] [address] #### CVFLURV #### [address] [address] Platelet 264 10 3/mcL Normal 150-450 [facility] Comment on above: Performed By: #### M RSAPCR #### [place] [address] #### CVFLURV #### [address] [address] Platelet mean volume (Bld) [Entitic vol] 9.1 fL Normal 6.6-10.5 [facility] Comment on above: Performed By: #### M RSAPCR #### [place] [address] #### CVFLURV #### [address] [place], [place] [address] RBC 4.25 10 6/mcL Normal 4.10-5.30 [facility] Comment on above: Performed By: #### M RSAPCR #### [address] [address] #### CVFLURV #### [address] [address] WBC 7.8 10 3/mcL Normal 4.5-10.8 [facility] Comment on above: Performed By: #### M RSAPCR #### [place] [address] #### CVFLURV #### [address] [address] LABORATORYOrdered By: SYSTEM SYSTEM on 05-20-2025 Basophils [...] 05-20-2025 Magnesium [Mass/Vol] 1.9 mg/dL Normal 1.8-2.4 [facility] Comment on above: Performed By: #### M RSAPCR #### [place] [address] #### CVFLURV #### [address] [address] MYCOon 05-20-2025 Mycoplasma IgG Positive Normal [facility] Comment on above: Result Comment: INTE RPRETATION OF MYCOPLASMA IgG BY EIA: Negative: No detectable M. pneumoniae IgG antibody. Positive: Mycoplasma pneumoniae IgG antibody Detected. Equivocal: Equivocal for IgG antibodies to Mycoplasma pneumoniae. Suggest repeat testing in 10-14 days. Performed By: #### M RSAPCR #### [place] [address] #### CVFLURV #### [address] [address] .Auto Diffon 05-19-2025 Basophil, Absolute 0.0 10 3/mcL Normal 0.0-0.3 [facility] Comment on above: Performed By: #### A DIFF, PBNP, TROPHS, CBC, GFR, MDW, ANEU, BMP #### [address] [address] Basophils/100 WBC (Bld) 0.3 % Normal 0.0-2.5 [facility] Comment on above: Performed By: #### A DIFF, PBNP, TROPHS, CBC, GFR, MDW, ANEU, BMP #### [address] [address] Eosinophil, Absolute 0.0 10 3/mcL Normal 0.0-0.7 [facility] Comment on above: Performed By: #### A DIFF, PBNP, TROPHS, CBC, GFR, MDW, ANEU, BMP #### [address] [address] Eosinophils/100 WBC (Bld) 0.2 % Normal 0.0-6.0 [facility] Comment on above: Performed By: #### A DIFF, PBNP, TROPHS, CBC, GFR, MDW, ANEU, BMP #### [address] [address] Lymphocyte, Absolute 1.8 10 3/mcL Normal 0.9-4.3 [facility] Comment on above: Performed By: #### A DIFF, PBNP, TROPHS, CBC, GFR, MDW, ANEU, BMP #### [address] [address] Lymphocytes/100 WBC (Bld) 24.9 % Normal 20.0-40.0 [facility] Comment on above: Performed By: #### A DIFF, PBNP, TROPHS, CBC, GFR, MDW, ANEU, BMP #### [address] [address] Monocyte, Absolute 1.0 10 3/mcL Normal 0.1-1.4 [facility] Comment on above: Performed By: #### A DIFF, PBNP, TROPHS, CBC, GFR, MDW, ANEU, BMP #### [address] [address] Monocytes/100 WBC (Bld) 13.5 % High 2.0-13.0 [facility] Comment on above: Performed By: #### A DIFF, PBNP, TROPHS, CBC, GFR, MDW, ANEU, BMP #### [address] [address] Neutrophils/100 WBC (Bld) 61.1 % Normal 50.0-75.0 [facility] Comment on above: Performed By: #### A DIFF, PBNP, TROPHS, CBC, GFR, MDW, ANEU, BMP #### [place] [id number] [place], [place] [address] .GFRon 05-19-2025 Estimated Glomerular Filtration Rate 70 ml/min/1.73sqm Normal [facility] Comment on above: Result Comment: Stages [...] TROPHS, CBC, GFR, MDW, ANEU, BMP #### [place] [id number] [place], [place] [address] .NEUABSon 05-19-2025 Neutrophil, Absolute 4.3 10 3/mcL Normal 2.3-8.1 [facility] Comment on above: Performed By: #### A DIFF, PBNP, TROPHS, CBC, GFR, MDW, ANEU, BMP #### [place] [id number] [place], [place] [address] BMPon 05-19-2025 BUN/Creatinine Ratio 31 ratio High 7-27 [facility] Comment on above: Performed By: #### A DIFF, PBNP, TROPHS, CBC, GFR, MDW, ANEU, BMP #### [place] [id number] [place], [place] [address] Calcium [Mass/Vol] 8.3 mg/dL Low 8.4-10.2 [facility] Comment on above: Performed By: #### A DIFF, PBNP, TROPHS, CBC, GFR, MDW, ANEU, BMP #### [address] [address] Chloride [Moles/Vol] 106 mmol/L Normal 98-107 [facility] Comment on above: Performed By: #### A DIFF, PBNP, TROPHS, CBC, GFR, MDW, ANEU, BMP #### [address] [address] CO2 [Moles/Vol] 41 mmol/L Critically abnormal 23-31 [facility] Comment on above: Performed By: #### A DIFF, PBNP, TROPHS, CBC, GFR, MDW, ANEU, BMP #### [address] [address] Creatinine [Mass/Vol] 0.89 mg/dL Normal 0.51-0.95 [facility] Comment on above: Performed By: #### A DIFF, PBNP, TROPHS, CBC, GFR, MDW, ANEU, BMP #### [address] [address] Electrolyte Balance -1.0 mEq/L Low 4.0-15.0 [facility] Comment on above: Performed By: #### A DIFF, PBNP, TROPHS, CBC, GFR, MDW, ANEU, BMP #### [address] [address] Glucose [Mass/Vol] 108 mg/dL Normal 83-110 [facility] Comment on above: Performed By: #### A DIFF, PBNP, TROPHS, CBC, GFR, MDW, ANEU, BMP #### [address] [address] Potassium [Moles/Vol] 3.9 mmol/L Normal 3.5-5.1 [facility] Comment on above: Performed By: #### A DIFF, PBNP, TROPHS, CBC, GFR, MDW, ANEU, BMP #### [address] [address] Sodium [Moles/Vol] 146 mmol/L High 136-145 [facility] Comment on above: Performed By: #### A DIFF, PBNP, TROPHS, CBC, GFR, MDW, ANEU, BMP #### [place] [address] Urea nitrogen [Mass/Vol] 28 mg/dL High 7-18 [facility] Comment on above: Performed By: #### A DIFF, PBNP, TROPHS, CBC, GFR, MDW, ANEU, BMP #### [place] [address] CBCon 05-19-2025 Erythrocyte distribution width (RBC) [Ratio] 17.8 % High 11.5-15.5 [facility] Comment on above: Performed By: #### A DIFF, PBNP, TROPHS, CBC, GFR, MDW, ANEU, BMP #### [place] [address] Hematocrit (Bld) [Volume fraction] 39.7 % Normal 34.0-46.0 [facility] Comment on above: Performed By: #### A DIFF, PBNP, TROPHS, CBC, GFR, MDW, ANEU, BMP #### [place] [address] Hgb 12.7 G/dL Normal 12.0-16.0 [facility] Comment on above: Performed By: #### A DIFF, PBNP, TROPHS, CBC, GFR, MDW, ANEU, BMP #### [place] [address] MCH (RBC) [Entitic mass] 29.3 pg Normal 27.0-33.0 [facility] Comment on above: Performed By: #### A DIFF, PBNP, TROPHS, CBC, GFR, MDW, ANEU, BMP #### [place] [address] MCHC 32.1 G/dL Normal 32.0-36.0 [facility] Comment on above: Performed By: #### A DIFF, PBNP, TROPHS, CBC, GFR, MDW, ANEU, BMP #### [address] [address] MCV (RBC) [Entitic vol] 91.5 fL Normal 80.0-99.0 [facility] Comment on above: Performed By: #### A DIFF, PBNP, TROPHS, CBC, GFR, MDW, ANEU, BMP #### [address] [address] Platelet 261 10 3/mcL Normal 150-450 [facility] Comment on above: Performed By: #### A DIFF, PBNP, TROPHS, CBC, GFR, MDW, ANEU, BMP #### [place] [address] Platelet mean volume (Bld) [Entitic vol] 9.1 fL Normal 6.6-10.5 [facility] Comment on above: Performed By: #### A DIFF, PBNP, TROPHS, CBC, GFR, MDW, ANEU, BMP #### [place] [address] RBC 4.33 10 6/mcL Normal 4.10-5.30 [facility] Comment on above: Performed By: #### A DIFF, PBNP, TROPHS, CBC, GFR, MDW, ANEU, BMP #### [place] [address] WBC 7.0 10 3/mcL Normal 4.5-10.8 [facility] Comment on above: Performed By: #### A DIFF, PBNP, TROPHS, CBC, GFR, MDW, ANEU, BMP #### [address] [address] LABORATORYOrdered By: SYSTEM SYSTEM on 05-19-2025 Basophils [...] 05-19-2025 Magnesium [Mass/Vol] 1.9 mg/dL Normal 1.8-2.4 [facility] Comment on above: Performed By: #### A DIFF, PBNP, TROPHS, CBC, GFR, MDW, ANEU, BMP #### [address] [address] PBNPon 05-19-2025 Natriuretic peptide B (Bld) [Mass/Vol] 4502 pg/mL High 0-125 [facility] Comment on above: Result Comment: NT-p roBNP results of less than 300 pg/mL effectively rules out acute congestive heart failure with 99% negative predictive value. Performed By: #### A DIFF, PBNP, TROPHS, CBC, GFR, MDW, ANEU, BMP #### [address] [address] .Auto Diffon 05-18-2025 Basophil, Absolute 0.0 10 3/mcL Normal 0.0-0.3 [facility] Comment on above: Performed By: #### A DIFF, PBNP, TROPHS, CBC, GFR, MDW, ANEU, BMP #### [address] [address] Basophils/100 WBC (Bld) 0.2 % Normal 0.0-2.5 [facility] Comment on above: Performed By: #### A DIFF, PBNP, TROPHS, CBC, GFR, MDW, ANEU, BMP #### [address] [address] Eosinophil, Absolute 0.0 10 3/mcL Normal 0.0-0.7 [facility] Comment on above: Performed By: #### A DIFF, PBNP, TROPHS, CBC, GFR, MDW, ANEU, BMP #### [address] [address] Eosinophils/100 WBC (Bld) 0.0 % Normal 0.0-6.0 [facility] Comment on above: Performed By: #### A DIFF, PBNP, TROPHS, CBC, GFR, MDW, ANEU, BMP #### [address] [address] Lymphocyte, Absolute 0.7 10 3/mcL Low 0.9-4.3 [facility] Comment on above: Performed By: #### A DIFF, PBNP, TROPHS, CBC, GFR, MDW, ANEU, BMP #### [address] [address] Lymphocytes/100 WBC (Bld) 7.9 % Low 20.0-40.0 [facility] Comment on above: Performed By: #### A DIFF, PBNP, TROPHS, CBC, GFR, MDW, ANEU, BMP #### [place] [id number] [place], [place] [address] Monocyte, Absolute 1.0 10 3/mcL Normal 0.1-1.4 [facility] Comment on above: Performed By: #### A DIFF, PBNP, TROPHS, CBC, GFR, MDW, ANEU, BMP #### [address] [address] Monocytes/100 WBC (Bld) 11.5 % Normal 2.0-13.0 [facility] Comment on above: Performed By: #### A DIFF, PBNP, TROPHS, CBC, GFR, MDW, ANEU, BMP #### [address] [address] Neutrophils/100 WBC (Bld) 80.4 % High 50.0-75.0 [facility] Comment on above: Performed By: #### A DIFF, PBNP, TROPHS, CBC, GFR, MDW, ANEU, BMP #### [address] [address] .GFRon 05-18-2025 Estimated Glomerular Filtration Rate 69 ml/min/1.73sqm Normal [facility] Comment on above: Result Comment: Stages [...] TROPHS, CBC, GFR, MDW, ANEU, BMP #### [address] [address] .NEUABSon 05-18-2025 Neutrophil, Absolute 7.0 10 3/mcL Normal 2.3-8.1 [facility] Comment on above: Performed By: #### A DIFF, PBNP, TROPHS, CBC, GFR, MDW, ANEU, BMP #### [address] [address] BMPon 05-18-2025 BUN/Creatinine Ratio 29 ratio High 7-27 [facility] Comment on above: Performed By: #### A DIFF, PBNP, TROPHS, CBC, GFR, MDW, ANEU, BMP #### [address] [address] Calcium [Mass/Vol] 8.2 mg/dL Low 8.4-10.2 [facility] Comment on above: Performed By: #### A DIFF, PBNP, TROPHS, CBC, GFR, MDW, ANEU, BMP #### [address] [address] Chloride [Moles/Vol] 106 mmol/L Normal 98-107 [facility] Comment on above: Performed By: #### A DIFF, PBNP, TROPHS, CBC, GFR, MDW, ANEU, BMP #### [address] [address] CO2 [Moles/Vol] 37 mmol/L High 23-31 [facility] Comment on above: Performed By: #### A DIFF, PBNP, TROPHS, CBC, GFR, MDW, ANEU, BMP #### [address] [address] Creatinine [Mass/Vol] 0.90 mg/dL Normal 0.51-0.95 [facility] Comment on above: Performed By: #### A DIFF, PBNP, TROPHS, CBC, GFR, MDW, ANEU, BMP #### [address] [address] Electrolyte Balance 3.0 mEq/L Low 4.0-15.0 [facility] Comment on above: Performed By: #### A DIFF, PBNP, TROPHS, CBC, GFR, MDW, ANEU, BMP #### [address] [address] Glucose [Mass/Vol] 130 mg/dL High 83-110 [facility] Comment on above: Performed By: #### A DIFF, PBNP, TROPHS, CBC, GFR, MDW, ANEU, BMP #### [address] [address] Potassium [Moles/Vol] 4.1 mmol/L Normal 3.5-5.1 [facility] Comment on above: Performed By: #### A DIFF, PBNP, TROPHS, CBC, GFR, MDW, ANEU, BMP #### [address] [address] Sodium [Moles/Vol] 146 mmol/L High 136-145 [facility] Comment on above: Performed By: #### A DIFF, PBNP, TROPHS, CBC, GFR, MDW, ANEU, BMP #### [address] [address] Urea nitrogen [Mass/Vol] 26 mg/dL High 7-18 [facility] Comment on above: Performed By: #### A DIFF, PBNP, TROPHS, CBC, GFR, MDW, ANEU, BMP #### [address] [address] CBCon 05-18-2025 Erythrocyte distribution width (RBC) [Ratio] 17.9 % High 11.5-15.5 [facility] Comment on above: Performed By: #### A DIFF, PBNP, TROPHS, CBC, GFR, MDW, ANEU, BMP #### [address] [address] Hematocrit (Bld) [Volume fraction] 37.7 % Normal 34.0-46.0 [facility] Comment on above: Performed By: #### A DIFF, PBNP, TROPHS, CBC, GFR, MDW, ANEU, BMP #### [address] [address] Hgb 12.5 G/dL Normal 12.0-16.0 [facility] Comment on above: Performed By: #### A DIFF, PBNP, TROPHS, CBC, GFR, MDW, ANEU, BMP #### [place] [address] MCH (RBC) [Entitic mass] 30.4 pg Normal 27.0-33.0 [facility] Comment on above: Performed By: #### A DIFF, PBNP, TROPHS, CBC, GFR, MDW, ANEU, BMP #### [place] [address] MCHC 33.2 G/dL Normal 32.0-36.0 [facility] Comment on above: Performed By: #### A DIFF, PBNP, TROPHS, CBC, GFR, MDW, ANEU, BMP #### [address] [address] MCV (RBC) [Entitic vol] 91.4 fL Normal 80.0-99.0 [facility] Comment on above: Performed By: #### A DIFF, PBNP, TROPHS, CBC, GFR, MDW, ANEU, BMP #### [address] [address] Platelet 275 10 3/mcL Normal 150-450 [facility] Comment on above: Performed By: #### A DIFF, PBNP, TROPHS, CBC, GFR, MDW, ANEU, BMP #### [address] [address] Platelet mean volume (Bld) [Entitic vol] 9.3 fL Normal 6.6-10.5 [facility] Comment on above: Performed By: #### A DIFF, PBNP, TROPHS, CBC, GFR, MDW, ANEU, BMP #### [place] [address] RBC 4.13 10 6/mcL Normal 4.10-5.30 [facility] Comment on above: Performed By: #### A DIFF, PBNP, TROPHS, CBC, GFR, MDW, ANEU, BMP #### [place] [id number] [place], [place] [address] WBC 8.7 10 3/mcL Normal 4.5-10.8 [facility] Comment on above: Performed By: #### A DIFF, PBNP, TROPHS, CBC, GFR, MDW, ANEU, BMP #### [facility] [address] [place], [place] [address] LABORATORYOrdered By: SYSTEM SYSTEM on 05-18-2025 Basophils [...] 05-18-2025 Magnesium [Mass/Vol] 1.9 mg/dL Normal 1.8-2.4 [facility] Comment on above: Performed By: #### A DIFF, PBNP, TROPHS, CBC, GFR, MDW, ANEU, BMP #### [address] [address] MYCOon 05-18-2025 Mycoplasma IgM Negative Normal [facility] Comment on above: Result Comment: INTE RPRETATION OF MYCOPLASMA IgM: Negative: IgM to M. pneumoniae Absent, or at levels below the assay limit of detection. Positive: IgM to M. pneumoniae Present. Invalid: Test results are invalid due to invalid internal control. Assay was performed in duplicate. Repeat testing is suggested if clinically indicated. Performed By: #### M RSAPCR #### [facility] [address] [place] [id number] #### CVFLURV #### [address] [address] PBNPon 05-18-2025 Natriuretic peptide B (Bld) [Mass/Vol] 6422 pg/mL High 0-125 [facility] Comment on above: Result Comment: NT-p roBNP results of less than 300 pg/mL effectively rules out acute congestive heart failure with 99% negative predictive value. Performed By: #### A DIFF, PBNP, TROPHS, CBC, GFR, MDW, ANEU, BMP #### [address] [address] .Auto Diffon 05-17-2025 Basophil, Absolute 0.0 10 3/mcL Normal 0.0-0.3 [facility] Comment on above: Performed By: #### M RSAPCR #### [place] [address] #### CVFLURV #### [address] [address] Basophils/100 WBC (Bld) 0.3 % Normal 0.0-2.5 [facility] Comment on above: Performed By: #### M RSAPCR #### [place] [address] #### CVFLURV #### [address] [address] Eosinophil, Absolute 0.0 10 3/mcL Normal 0.0-0.7 [facility] Comment on above: Performed By: #### M RSAPCR #### [place] [address] #### CVFLURV #### [address] [address] Eosinophils/100 WBC (Bld) 0.0 % Normal 0.0-6.0 [facility] Comment on above: Performed By: #### M RSAPCR #### [place] [address] #### CVFLURV #### [address] [address] Lymphocyte, Absolute 0.3 10 3/mcL Low 0.9-4.3 [facility] Comment on above: Performed By: #### M RSAPCR #### [place] [address] #### CVFLURV #### [address] [address] Lymphocytes/100 WBC (Bld) 6.4 % Low 20.0-40.0 [facility] Comment on above: Performed By: #### M RSAPCR #### [place] [address] #### CVFLURV #### [address] [address] Monocyte, Absolute 0.1 10 3/mcL Normal 0.1-1.4 [facility] Comment on above: Performed By: #### M RSAPCR #### [place] [address] #### CVFLURV #### [address] [address] Monocytes/100 WBC (Bld) 1.5 % Low 2.0-13.0 [facility] Comment on above: Performed By: #### M RSAPCR #### [place] [address] #### CVFLURV #### [address] [address] Neutrophils/100 WBC (Bld) 91.8 % High 50.0-75.0 [facility] Comment on above: Performed By: #### M RSAPCR #### [place] [address] #### CVFLURV #### [address] [address] .GFRon 05-17-2025 Estimated Glomerular Filtration Rate 66 ml/min/1.73sqm Normal [facility] Comment on above: Result Comment: Stages [...] results. Performed By: #### M RSAPCR #### [place] [address] #### CVFLURV #### [address] [address] .NEUABSon 05-17-2025 Neutrophil, Absolute 3.6 10 3/mcL Normal 2.3-8.1 [facility] Comment on above: Performed By: #### M RSAPCR #### [place] [address] #### CVFLURV #### [address] [address] BMPon 05-17-2025 BUN/Creatinine Ratio 17 ratio Normal 7-27 [facility] Comment on above: Performed By: #### M RSAPCR #### [place] [address] #### CVFLURV #### [address] [address] Calcium [Mass/Vol] 8.0 mg/dL Low 8.4-10.2 [facility] Comment on above: Performed By: #### M RSAPCR #### [place] [address] #### CVFLURV #### [address] [address] Chloride [Moles/Vol] 107 mmol/L Normal 98-107 [facility] Comment on above: Performed By: #### M RSAPCR #### [place] [address] #### CVFLURV #### [address] [address] CO2 [Moles/Vol] 39 mmol/L High 23-31 [facility] Comment on above: Performed By: #### M RSAPCR #### [place] [address] #### CVFLURV #### [address] [address] Creatinine [Mass/Vol] 0.93 mg/dL Normal 0.51-0.95 [facility] Comment on above: Performed By: #### M RSAPCR #### [place] [address] #### CVFLURV #### [address] [address] Electrolyte Balance 2.0 mEq/L Low 4.0-15.0 [facility] Comment on above: Performed By: #### M RSAPCR #### [place] [address] #### CVFLURV #### [address] [address] Glucose [Mass/Vol] 174 mg/dL High 83-110 [facility] Comment on above: Performed By: #### M RSAPCR #### [place] [address] #### CVFLURV #### [address] [address] Potassium [Moles/Vol] 4.6 mmol/L Normal 3.5-5.1 [facility] Comment on above: Performed By: #### M RSAPCR #### [place] [address] #### CVFLURV #### [address] [address] Sodium [Moles/Vol] 148 mmol/L High 136-145 [facility] Comment on above: Performed By: #### M RSAPCR #### [place] [address] #### CVFLURV #### [address] [address] Urea nitrogen [Mass/Vol] 16 mg/dL Normal 7-18 [facility] Comment on above: Performed By: #### M RSAPCR #### [place] [address] #### CVFLURV #### [place] [address] CBCon 05-17-2025 Erythrocyte distribution width (RBC) [Ratio] 17.8 % High 11.5-15.5 [facility] Comment on above: Performed By: #### M RSAPCR #### [place] [address] #### CVFLURV #### [place] [address] Hematocrit (Bld) [Volume fraction] 38.0 % Normal 34.0-46.0 [facility] Comment on above: Performed By: #### M RSAPCR #### [place] [address] #### CVFLURV #### [place] [address] Hgb 12.3 G/dL Normal 12.0-16.0 [facility] Comment on above: Performed By: #### M RSAPCR #### [place] [address] #### CVFLURV #### [place] [address] MCH (RBC) [Entitic mass] 29.7 pg Normal 27.0-33.0 [facility] Comment on above: Performed By: #### M RSAPCR #### [place] [address] #### CVFLURV #### [place] [address] MCHC 32.2 G/dL Normal 32.0-36.0 [facility] Comment on above: Performed By: #### M RSAPCR #### [place] [address] #### CVFLURV #### [address] [address] MCV (RBC) [Entitic vol] 92.2 fL Normal 80.0-99.0 [facility] Comment on above: Performed By: #### M RSAPCR #### [place] [address] #### CVFLURV #### [address] [address] Platelet 257 10 3/mcL Normal 150-450 [facility] Comment on above: Performed By: #### M RSAPCR #### [place] [address] #### CVFLURV #### [address] [address] [address] Platelet mean volume (Bld) [Entitic vol] 9.3 fL Normal 6.6-10.5 [facility] Comment on above: Performed By: #### M RSAPCR #### [place] [address] #### CVFLURV #### [address] [address] RBC 4.12 10 6/mcL Normal 4.10-5.30 [facility] Comment on above: Performed By: #### M RSAPCR #### [place] [address] #### CVFLURV #### [address] [address] WBC 4.0 10 3/mcL Low 4.5-10.8 [facility] Comment on above: Performed By: #### M RSAPCR #### [place] [address] #### CVFLURV #### [address] [address] CVFLURVon 05-17-2025 FLU A PCR Negative Normal Negative [facility] Comment on above: Performed By: #### M RSAPCR #### [place] [address] #### CVFLURV #### [address] [address] FLU B PCR Negative Normal Negative [facility] Comment on above: Performed By: #### M RSAPCR #### [address] [address] #### CVFLURV #### [address] [address] RSV PCR Negative Normal Negative [facility] Comment on above: Performed By: #### M RSAPCR #### [place] [address] #### CVFLURV #### [place] [address] SARS-CoV-2 (COVID-19) RNA IVANA+probe Ql (Unsp spec) Negative Normal Negative [facility] Comment on above: Result Comment: Resu [...] results. Performed By: #### M RSAPCR #### [place] [address] #### CVFLURV #### [place] [address] LABORATORYOrdered By: SYSTEM SYSTEM on 05-17-2025 Natriuretic [...] Comment on above: Result Comment: [place] [id number] MRSA PCR Int See Below 2 *NA* [...] 05-17-2025 Magnesium [Mass/Vol] 1.5 mg/dL Low 1.8-2.4 [facility] Comment on above: Performed By: #### M RSAPCR #### [address] [address] #### CVFLURV #### [address] [address] MRSAPCRon 05-17-2025 MRSA (PCR) Not detected Normal Not Detected [facility] Comment on above: Result Comment: [place] [id number] Performed By: #### M RSAPCR #### [address] [address] #### CVFLURV #### [address] [address] MRSA PCR Int See Below Normal [facility] Comment on above: Result Comment: Clinical [...] reproducible. Performed By: #### M RSAPCR #### [address] [address] #### CVFLURV #### [address] [address] No Panel Informationon 05-17 Legionella Urine Ag Presumptive negative for L. pneumophila serogroup 1 antigen in urine, suggesting no recent or current infection. Legionnaire's disease cannot be ruled out since other serogroups and species may also cause disease. [facility] Work Phone: Microscopic examination of blood, culture Blood Culture: No Growth at 5 days. [facility] Work Phone: Streptococcus Pneumoniae Urine Antig Presumptive negative for pneumococcal pneumonia, suggesting no current or recent pneumococcal infection. Infection due to Strep pneumoniae cannot be ruled out since the antigen present in the sample may be below the detection limit of the test. [facility] Work Phone: Comment on above: This test has not be en evaluated on patients taking antibiotics for greater than 24 hours or on patients who have recently completed an antibiotic regimen. The accuracy of this test has not been proven in young children. PBNPon 05-17-2025 Natriuretic peptide B (Bld) [Mass/Vol] 5616 pg/mL High 0-125 [facility] Comment on above: Result Comment: NT-p roBNP results of less than 300 pg/mL effectively rules out acute congestive heart failure with 99% negative predictive value. Performed By: #### M RSAPCR #### [place] [address] #### CVFLURV #### [address] [address] .Auto Diffon 05-16-2025 Basophil, Absolute 0.1 10 3/mcL Normal 0.0-0.3 [facility] Comment on above: Performed By: #### A DIFF, PBNP, TROPHS, CBC, GFR, MDW, ANEU, BMP #### [address] [address] Basophils/100 WBC (Bld) 2.0 % Normal 0.0-2.5 [facility] Comment on above: Performed By: #### A DIFF, PBNP, TROPHS, CBC, GFR, MDW, ANEU, BMP #### [address] [address] Eosinophil, Absolute 0.1 10 3/mcL Normal 0.0-0.7 [facility] Comment on above: Performed By: #### A DIFF, PBNP, TROPHS, CBC, GFR, MDW, ANEU, BMP #### [address] [address] Eosinophils/100 WBC (Bld) 1.9 % Normal 0.0-6.0 [facility] Comment on above: Performed By: #### A DIFF, PBNP, TROPHS, CBC, GFR, MDW, ANEU, BMP #### [address] [address] Lymphocyte, Absolute 1.4 10 3/mcL Normal 0.9-4.3 [facility] Comment on above: Performed By: #### A DIFF, PBNP, TROPHS, CBC, GFR, MDW, ANEU, BMP #### [address] [address] Lymphocytes/100 WBC (Bld) 20.4 % Normal 20.0-40.0 [facility] Comment on above: Performed By: #### A DIFF, PBNP, TROPHS, CBC, GFR, MDW, ANEU, BMP #### [address] [address] Monocyte, Absolute 0.8 10 3/mcL Normal 0.1-1.4 [facility] Comment on above: Performed By: #### A DIFF, PBNP, TROPHS, CBC, GFR, MDW, ANEU, BMP #### [address] [address] Monocytes/100 WBC (Bld) 12.2 % Normal 2.0-13.0 [facility] Comment on above: Performed By: #### A DIFF, PBNP, TROPHS, CBC, GFR, MDW, ANEU, BMP #### [address] [address] Neutrophils/100 WBC (Bld) 63.5 % Normal 50.0-75.0 [facility] Comment on above: Performed By: #### A DIFF, PBNP, TROPHS, CBC, GFR, MDW, ANEU, BMP #### [address] [address] .GFRon 05-16-2025 Estimated Glomerular Filtration Rate 67 ml/min/1.73sqm Normal [facility] Comment on above: Result Comment: Stages [...] results. Performed By: #### M RSAPCR #### [address] [address] #### CVFLURV #### [address] [address] .MDWon 05-16-2025 Monocyte Distribution Width 16.95 Normal 0.00-20.00 [facility] Comment on above: Result Comment: For ED adult patients suspected of sepsis, MDW<=20.0 does not rule out sepsis or risk of sepsis Performed By: #### A DIFF, PBNP, TROPHS, CBC, GFR, MDW, ANEU, BMP #### [address] [address] .NEUABSon 05-16-2025 Neutrophil, Absolute 4.2 10 3/mcL Normal 2.3-8.1 [facility] Comment on above: Performed By: #### A DIFF, PBNP, TROPHS, CBC, GFR, MDW, ANEU, BMP #### [address] [address] BMPon 05-16-2025 BUN/Creatinine Ratio 13 ratio Normal 7-27 [facility] Comment on above: Performed By: #### A DIFF, PBNP, TROPHS, CBC, GFR, MDW, ANEU, BMP #### [address] [address] Calcium [Mass/Vol] 8.4 mg/dL Normal 8.4-10.2 [facility] Comment on above: Performed By: #### A DIFF, PBNP, TROPHS, CBC, GFR, MDW, ANEU, BMP #### [address] [address] Chloride [Moles/Vol] 109 mmol/L High 98-107 [facility] Comment on above: Performed By: #### A DIFF, PBNP, TROPHS, CBC, GFR, MDW, ANEU, BMP #### [address] [address] CO2 [Moles/Vol] 38 mmol/L High 23-31 [facility] Comment on above: Performed By: #### A DIFF, PBNP, TROPHS, CBC, GFR, MDW, ANEU, BMP #### [address] [address] Creatinine [Mass/Vol] 0.92 mg/dL Normal 0.51-0.95 [facility] Comment on above: Performed By: #### A DIFF, PBNP, TROPHS, CBC, GFR, MDW, ANEU, BMP #### [address] [address] Electrolyte Balance 2.0 mEq/L Low 4.0-15.0 [facility] Comment on above: Performed By: #### A DIFF, PBNP, TROPHS, CBC, GFR, MDW, ANEU, BMP #### [address] [address] Glucose [Mass/Vol] 124 mg/dL High 83-110 [facility] Comment on above: Performed By: #### A DIFF, PBNP, TROPHS, CBC, GFR, MDW, ANEU, BMP #### [address] [address] Potassium [Moles/Vol] 4.0 mmol/L Normal 3.5-5.1 [facility] Comment on above: Performed By: #### A DIFF, PBNP, TROPHS, CBC, GFR, MDW, ANEU, BMP #### [address] [address] Sodium [Moles/Vol] 149 mmol/L High 136-145 [facility] Comment on above: Performed By: #### A DIFF, PBNP, TROPHS, CBC, GFR, MDW, ANEU, BMP #### [address] [address] Urea nitrogen [Mass/Vol] 12 mg/dL Normal 7-18 [facility] Comment on above: Performed By: #### A DIFF, PBNP, TROPHS, CBC, GFR, MDW, ANEU, BMP #### [address] [address] CBCon 05-16-2025 Erythrocyte distribution width (RBC) [Ratio] 18.0 % High 11.5-15.5 [facility] Comment on above: Performed By: #### A DIFF, PBNP, TROPHS, CBC, GFR, MDW, ANEU, BMP #### [address] [address] Hematocrit (Bld) [Volume fraction] 43.3 % Normal 34.0-46.0 [facility] Comment on above: Performed By: #### A DIFF, PBNP, TROPHS, CBC, GFR, MDW, ANEU, BMP #### [address] [address] Hgb 13.8 G/dL Normal 12.0-16.0 [facility] Comment on above: Performed By: #### A DIFF, PBNP, TROPHS, CBC, GFR, MDW, ANEU, BMP #### [address] [address] MCH (RBC) [Entitic mass] 29.8 pg Normal 27.0-33.0 [facility] Comment on above: Performed By: #### A DIFF, PBNP, TROPHS, CBC, GFR, MDW, ANEU, BMP #### [address] [address] MCHC 31.9 G/dL Low 32.0-36.0 [facility] Comment on above: Performed By: #### A DIFF, PBNP, TROPHS, CBC, GFR, MDW, ANEU, BMP #### [address] [address] MCV (RBC) [Entitic vol] 93.3 fL Normal 80.0-99.0 [facility] Comment on above: Performed By: #### A DIFF, PBNP, TROPHS, CBC, GFR, MDW, ANEU, BMP #### [address] [address] Platelet 264 10 3/mcL Normal 150-450 [facility] Comment on above: Performed By: #### A DIFF, PBNP, TROPHS, CBC, GFR, MDW, ANEU, BMP #### [address] [address] Platelet mean volume (Bld) [Entitic vol] 9.0 fL Normal 6.6-10.5 [facility] Comment on above: Performed By: #### A DIFF, PBNP, TROPHS, CBC, GFR, MDW, ANEU, BMP #### [address] [address] RBC 4.64 10 6/mcL Normal 4.10-5.30 [facility] Comment on above: Performed By: #### A DIFF, PBNP, TROPHS, CBC, GFR, MDW, ANEU, BMP #### [address] [address] WBC 6.6 10 3/mcL Normal 4.5-10.8 [facility] Comment on above: Performed By: #### A DIFF, PBNP, TROPHS, CBC, GFR, MDW, ANEU, BMP #### [place] [id number] [place] [address] LABORATORYOrdered By: Haider Ellis on 05-16-2025 Appearance [...] a homogeneous sandwich chemiluminescent immunoassay based on [employer] technology. PBNPon 05-16-2025 Natriuretic peptide B (Bld) [Mass/Vol] 4760 pg/mL High 0-125 [facility] Comment on above: Result Comment: NT-p roBNP results of less than 300 pg/mL effectively rules out acute congestive heart failure with 99% negative predictive value. Performed By: #### A DIFF, PBNP, TROPHS, CBC, GFR, MDW, ANEU, BMP #### [address] [address] [facility] High Sensitivity Troponin I 38 ng/L Normal 0-51 [facility] Comment on above: Result Comment: High Sensitive Troponin I Reference Ranges: Female: 0-51 ng/L Male: 0-76 ng/L Testing performed on [employer] using a homogeneous sandwich chemiluminescent immunoassay based on [employer] technology. Performed By: #### A DIFF, PBNP, TROPHS, CBC, GFR, MDW, ANEU, BMP #### [address] [address] UAon 05-16-2025 Color (U) Yellow Normal [facility] Comment on above: Performed By: #### A DIFF, PBNP, TROPHS, CBC, GFR, MDW, ANEU, BMP #### [address] [address] Glucose (U) [Mass/Vol] Negative Normal Negative [facility] Comment on above: Performed By: #### A DIFF, PBNP, TROPHS, CBC, GFR, MDW, ANEU, BMP #### [address] [address] Ketones Ql (U) Negative Normal Negative [facility] Comment on above: Performed By: #### A DIFF, PBNP, TROPHS, CBC, GFR, MDW, ANEU, BMP #### [place] [address] UA Appear Slightly Cloudy Abnormal Clear [facility] Comment on above: Performed By: #### A DIFF, PBNP, TROPHS, CBC, GFR, MDW, ANEU, BMP #### [place] [address] UA Blood Negative Normal Negative [facility] Comment on above: Performed By: #### A DIFF, PBNP, TROPHS, CBC, GFR, MDW, ANEU, BMP #### [place] [address] UA Leuk Est Negative Normal Negative [facility] Comment on above: Performed By: #### A DIFF, PBNP, TROPHS, CBC, GFR, MDW, ANEU, BMP #### [place] [address] UA Nitrite Negative Normal Negative [facility] Comment on above: Performed By: #### A DIFF, PBNP, TROPHS, CBC, GFR, MDW, ANEU, BMP #### [place] [address] UA pH 6.0 Normal 5.0 - 8.0 [facility] Comment on above: Performed By: #### A DIFF, PBNP, TROPHS, CBC, GFR, MDW, ANEU, BMP #### [place] [address] UA Protein 30 mg/dL Normal Negative [facility] Comment on above: Performed By: #### A DIFF, PBNP, TROPHS, CBC, GFR, MDW, ANEU, BMP #### [place] [address] UA Spec Grav 1.015 Normal 1.015-1.025 [facility] Comment on above: Performed By: #### A DIFF, PBNP, TROPHS, CBC, GFR, MDW, ANEU, BMP #### [place] [address] UA Specimen Type Not Given Normal [facility] Comment on above: Performed By: #### A DIFF, PBNP, TROPHS, CBC, GFR, MDW, ANEU, BMP #### [place] [address] UA Urobilinogen 0.2 E.U./dL Normal 0.2-1.0 [facility] Comment on above: Performed By: #### A DIFF, PBNP, TROPHS, CBC, GFR, MDW, ANEU, BMP #### [place] [address] Urobilinogen (U) [Mass/Vol] Negative Normal Negative [facility] Comment on above: Performed By: #### A DIFF, PBNP, TROPHS, CBC, GFR, MDW, ANEU, BMP #### [place] [address] UAMICon 05-16-2025 UA Bacteria 2+ /hpf Abnormal Negative [facility] Comment on above: Performed By: #### A DIFF, PBNP, TROPHS, CBC, GFR, MDW, ANEU, BMP #### [place] [address] UA RBC Negative Normal 0-2 [facility] Comment on above: Performed By: #### A DIFF, PBNP, TROPHS, CBC, GFR, MDW, ANEU, BMP #### [place] [address] UA Squam Epithelial 3-5 Normal 0-20 [facility] Comment on above: Performed By: #### A DIFF, PBNP, TROPHS, CBC, GFR, MDW, ANEU, BMP #### [place] [address] UA WBC 0-2 Normal 0-5 [facility] Comment on above: Performed By: #### A DIFF, PBNP, TROPHS, CBC, GFR, MDW, ANEU, BMP #### [place] [address] UA Yeast Trace Abnormal [facility] Comment on above: Performed By: #### A DIFF, PBNP, TROPHS, CBC, GFR, MDW, ANEU, BMP #### [place] [id number] [place], [place] [address] XR CHEST 1 VIEWon 05-16-2025 XR CHEST [...] 8:27:46 PM Ordering Provider: BRIAN TRINIDAD Normal [facility] .Auto Diffon 03-05-2025 Basophil, Absolute 0.0 10 3/mcL Normal 0.0-0.3 [facility] Comment on above: Performed By: #### M RSAPCR #### [facility] [address] [place] [address] #### CVFLURV #### [place] [id number] [place], [place] [address] Basophils/100 WBC (Bld) 0.1 % Normal 0.0-2.5 [facility] Comment on above: Performed By: #### M RSAPCR #### [place] [address] #### CVFLURV #### [address] [address] Eosinophil, Absolute 0.0 10 3/mcL Normal 0.0-0.7 [facility] Comment on above: Performed By: #### M RSAPCR #### [place] [address] #### CVFLURV #### [address] [address] Eosinophils/100 WBC (Bld) 0.0 % Normal 0.0-6.0 [facility] Comment on above: Performed By: #### M RSAPCR #### [place] [address] #### CVFLURV #### [address] [address] Lymphocyte, Absolute 0.4 10 3/mcL Low 0.9-4.3 [facility] Comment on above: Performed By: #### M RSAPCR #### [place] [address] #### CVFLURV #### [address] [address] Lymphocytes/100 WBC (Bld) 4.4 % Low 20.0-40.0 [facility] Comment on above: Performed By: #### M RSAPCR #### [place] [address] #### CVFLURV #### [address] [address] Monocyte, Absolute 0.2 10 3/mcL Normal 0.1-1.4 [facility] Comment on above: Performed By: #### M RSAPCR #### [place] [address] #### CVFLURV #### [address] [address] Monocytes/100 WBC (Bld) 2.7 % Normal 2.0-13.0 [facility] Comment on above: Performed By: #### M RSAPCR #### [address] [address] #### CVFLURV #### [address] [address] Neutrophils/100 WBC (Bld) 92.8 % High 50.0-75.0 [facility] Comment on above: Performed By: #### M RSAPCR #### [place] [address] #### CVFLURV #### [address] [address] .GFRon 03-05-2025 Estimated Glomerular Filtration Rate 88 ml/min/1.73sqm Normal [facility] Comment on above: Result Comment: Stages [...] results. Performed By: #### M RSAPCR #### [place] [address] #### CVFLURV #### [address] [address] .NEUABSon 03-05-2025 Neutrophil, Absolute 7.6 10 3/mcL Normal 2.3-8.1 [facility] Comment on above: Performed By: #### M RSAPCR #### [place] [id number] #### CVFLURV #### [address] [address] BMPon 03-05-2025 BUN/Creatinine Ratio 28 ratio High 7-27 [facility] Comment on above: Performed By: #### M RSAPCR #### [place] [address] #### CVFLURV #### [address] [address] Calcium [Mass/Vol] 8.5 mg/dL Normal 8.4-10.2 [facility] Comment on above: Performed By: #### M RSAPCR #### [place] [address] #### CVFLURV #### [place] [address] Chloride [Moles/Vol] 107 mmol/L Normal 98-107 [facility] Comment on above: Performed By: #### M RSAPCR #### [place] [address] #### CVFLURV #### [address] [address] CO2 [Moles/Vol] 29 mmol/L Normal 23-31 [facility] Comment on above: Performed By: #### M RSAPCR #### [place] [address] #### CVFLURV #### [address] [address] Creatinine [Mass/Vol] 0.74 mg/dL Normal 0.51-0.95 [facility] Comment on above: Performed By: #### M RSAPCR #### [place] [address] #### CVFLURV #### [address] [address] Electrolyte Balance 5.0 mEq/L Normal 4.0-15.0 [facility] Comment on above: Performed By: #### M RSAPCR #### [place] [address] #### CVFLURV #### [address] [address] Glucose [Mass/Vol] 160 mg/dL High 80-115 [facility] Comment on above: Performed By: #### M RSAPCR #### [place] [address] #### CVFLURV #### [address] [address] Potassium [Moles/Vol] 4.6 mmol/L Normal 3.5-5.1 [facility] Comment on above: Performed By: #### M RSAPCR #### [place] [address] #### CVFLURV #### [address] [address] Sodium [Moles/Vol] 141 mmol/L Normal 136-145 [facility] Comment on above: Performed By: #### M RSAPCR #### [place] [address] #### CVFLURV #### [address] [address] Urea nitrogen [Mass/Vol] 21 mg/dL High 7-18 [facility] Comment on above: Performed By: #### M RSAPCR #### [place] [address] #### CVFLURV #### [address] [address] CBCon 03-05-2025 Erythrocyte distribution width (RBC) [Ratio] 16.5 % High 11.5-15.5 [facility] Comment on above: Performed By: #### M RSAPCR #### [place] [address] #### CVFLURV #### [address] [address] Hematocrit (Bld) [Volume fraction] 38.1 % Normal 34.0-46.0 [facility] Comment on above: Performed By: #### M RSAPCR #### [place] [address] #### CVFLURV #### [address] [address] Hgb 12.4 G/dL Normal 12.0-16.0 [facility] Comment on above: Performed By: #### M RSAPCR #### [place] [address] #### CVFLURV #### [address] [address] MCH (RBC) [Entitic mass] 29.7 pg Normal 27.0-33.0 [facility] Comment on above: Performed By: #### M RSAPCR #### [place] [address] #### CVFLURV #### [place] [address] MCHC 32.4 G/dL Normal 32.0-36.0 [facility] Comment on above: Performed By: #### M RSAPCR #### [place] [address] #### CVFLURV #### [place] [address] MCV (RBC) [Entitic vol] 91.7 fL Normal 80.0-99.0 [facility] Comment on above: Performed By: #### M RSAPCR #### [place] [address] #### CVFLURV #### [address] [address] Platelet 318 10 3/mcL Normal 150-450 [facility] Comment on above: Performed By: #### M RSAPCR #### [place] [address] #### CVFLURV #### [address] [address] Platelet mean volume (Bld) [Entitic vol] 8.2 fL Normal 6.6-10.5 [facility] Comment on above: Performed By: #### M RSAPCR #### [place] [address] #### CVFLURV #### [address] [address] RBC 4.16 10 6/mcL Normal 4.10-5.30 [facility] Comment on above: Performed By: #### M RSAPCR #### [place] [address] #### CVFLURV #### [place] [address] WBC 8.2 10 3/mcL Normal 4.5-10.8 [facility] Comment on above: Performed By: #### M RSAPCR #### [place] [address] #### CVFLURV #### [place] [address] LABORATORYOrdered By: SYSTEM SYSTEM on 03-05-2025 Basophils [...] Basophil, Absolute 0.1 10 3/mcL Normal 0.0-0.3 [facility] Comment on above: Performed By: #### A DIFF, PBNP, TROPHS, CBC, GFR, MDW, ANEU, BMP #### [address] [address] Basophils/100 WBC (Bld) 0.9 % Normal 0.0-2.5 [facility] Comment on above: Performed By: #### A DIFF, PBNP, TROPHS, CBC, GFR, MDW, ANEU, BMP #### [address] [address] Eosinophil, Absolute 0.2 10 3/mcL Normal 0.0-0.7 [facility] Comment on above: Performed By: #### A DIFF, PBNP, TROPHS, CBC, GFR, MDW, ANEU, BMP #### [address] [address] Eosinophils/100 WBC (Bld) 1.9 % Normal 0.0-6.0 [facility] Comment on above: Performed By: #### A DIFF, PBNP, TROPHS, CBC, GFR, MDW, ANEU, BMP #### [address] [address] Lymphocyte, Absolute 1.9 10 3/mcL Normal 0.9-4.3 [facility] Comment on above: Performed By: #### A DIFF, PBNP, TROPHS, CBC, GFR, MDW, ANEU, BMP #### [address] [address] Lymphocytes/100 WBC (Bld) 22.2 % Normal 20.0-40.0 [facility] Comment on above: Performed By: #### A DIFF, PBNP, TROPHS, CBC, GFR, MDW, ANEU, BMP #### [address] [address] Monocyte, Absolute 1.0 10 3/mcL Normal 0.1-1.4 [facility] Comment on above: Performed By: #### A DIFF, PBNP, TROPHS, CBC, GFR, MDW, ANEU, BMP #### [address] [address] Monocytes/100 WBC (Bld) 11.9 % Normal 2.0-13.0 [facility] Comment on above: Performed By: #### A DIFF, PBNP, TROPHS, CBC, GFR, MDW, ANEU, BMP #### [address] [address] Neutrophils/100 WBC (Bld) 63.1 % Normal 50.0-75.0 [facility] Comment on above: Performed By: #### A DIFF, PBNP, TROPHS, CBC, GFR, MDW, ANEU, BMP #### [address] [address] .GFRon 03-04-2025 Estimated Glomerular Filtration Rate 75 ml/min/1.73sqm Normal [facility] Comment on above: Result Comment: Stages [...] results. Performed By: #### M RSAPCR #### [place] [address] #### CVFLURV #### [address] [address] .MDWon 03-04-2025 Monocyte Distribution Width 17.56 Normal 0.00-20.00 [facility] Comment on above: Result Comment: For ED adult patients suspected of sepsis, MDW<=20.0 does not rule out sepsis or risk of sepsis Performed By: #### M RSAPCR #### [place] [address] #### CVFLURV #### [address] [address] .NEUABSon 03-04-2025 Neutrophil, Absolute 5.3 10 3/mcL Normal 2.3-8.1 [facility] Comment on above: Performed By: #### M RSAPCR #### [place] [address] #### CVFLURV #### [address] [address] BMPon 03-04-2025 BUN/Creatinine Ratio 18 ratio Normal 7-27 [facility] Comment on above: Performed By: #### M RSAPCR #### [place] [address] #### CVFLURV #### [address] [address] Calcium [Mass/Vol] 9.0 mg/dL Normal 8.4-10.2 [facility] Comment on above: Performed By: #### M RSAPCR #### [place] [address] #### CVFLURV #### [address] [address] Chloride [Moles/Vol] 106 mmol/L Normal 98-107 [facility] Comment on above: Performed By: #### M RSAPCR #### [place] [address] #### CVFLURV #### [address] [address] CO2 [Moles/Vol] 34 mmol/L High 23-31 [facility] Comment on above: Performed By: #### M RSAPCR #### [place] [address] #### CVFLURV #### [address] [address] Creatinine [Mass/Vol] 0.84 mg/dL Normal 0.51-0.95 [facility] Comment on above: Performed By: #### M RSAPCR #### [place] [address] #### CVFLURV #### [address] [address] Electrolyte Balance 3.0 mEq/L Low 4.0-15.0 [facility] Comment on above: Performed By: #### M RSAPCR #### [place] [address] #### CVFLURV #### [address] [address] [address] Glucose [Mass/Vol] 137 mg/dL High 80-115 [facility] Comment on above: Performed By: #### M RSAPCR #### [place] [address] #### CVFLURV #### [address] [address] Potassium [Moles/Vol] 4.1 mmol/L Normal 3.5-5.1 [facility] Comment on above: Performed By: #### M RSAPCR #### [place] [address] #### CVFLURV #### [address] [address] Sodium [Moles/Vol] 143 mmol/L Normal 136-145 [facility] Comment on above: Performed By: #### M RSAPCR #### [address] [address] #### CVFLURV #### [address] [address] Urea nitrogen [Mass/Vol] 15 mg/dL Normal 7-18 [facility] Comment on above: Performed By: #### M RSAPCR #### [address] [address] #### CVFLURV #### [address] [address] CBCon 03-04-2025 Erythrocyte distribution width (RBC) [Ratio] 16.9 % High 11.5-15.5 [facility] Comment on above: Performed By: #### A DIFF, PBNP, TROPHS, CBC, GFR, MDW, ANEU, BMP #### [address] [address] Hematocrit (Bld) [Volume fraction] 45.7 % Normal 34.0-46.0 [facility] Comment on above: Performed By: #### A DIFF, PBNP, TROPHS, CBC, GFR, MDW, ANEU, BMP #### [address] [address] Hgb 14.9 G/dL Normal 12.0-16.0 [facility] Comment on above: Performed By: #### A DIFF, PBNP, TROPHS, CBC, GFR, MDW, ANEU, BMP #### [address] [address] MCH (RBC) [Entitic mass] 30.0 pg Normal 27.0-33.0 [facility] Comment on above: Performed By: #### A DIFF, PBNP, TROPHS, CBC, GFR, MDW, ANEU, BMP #### [address] [address] MCHC 32.5 G/dL Normal 32.0-36.0 [facility] Comment on above: Performed By: #### A DIFF, PBNP, TROPHS, CBC, GFR, MDW, ANEU, BMP #### [address] [address] MCV (RBC) [Entitic vol] 92.2 fL Normal 80.0-99.0 [facility] Comment on above: Performed By: #### A DIFF, PBNP, TROPHS, CBC, GFR, MDW, ANEU, BMP #### [address] [address] Platelet 369 10 3/mcL Normal 150-450 [facility] Comment on above: Performed By: #### A DIFF, PBNP, TROPHS, CBC, GFR, MDW, ANEU, BMP #### [address] [address] Platelet mean volume (Bld) [Entitic vol] 8.1 fL Normal 6.6-10.5 [facility] Comment on above: Performed By: #### A DIFF, PBNP, TROPHS, CBC, GFR, MDW, ANEU, BMP #### [address] [address] RBC 4.95 10 6/mcL Normal 4.10-5.30 [facility] Comment on above: Performed By: #### A DIFF, PBNP, TROPHS, CBC, GFR, MDW, ANEU, BMP #### [address] [address] WBC 8.4 10 3/mcL Normal 4.5-10.8 [facility] Comment on above: Performed By: #### A DIFF, PBNP, TROPHS, CBC, GFR, MDW, ANEU, BMP #### [address] [address] CVFLURVon 03-04-2025 FLU A PCR Negative Normal Negative [facility] Comment on above: Result Comment: [place] [id number] Performed By: #### M RSAPCR #### [facility] [address] [place] [address] #### CVFLURV #### [address] [address] FLU B PCR Negative Normal Negative [facility] Comment on above: Result Comment: [place] [id number] Performed By: #### M RSAPCR #### [address] [address] #### CVFLURV #### [address] [address] RSV PCR Negative Normal Negative [facility] Comment on above: Result Comment: [place] [id number] Performed By: #### M RSAPCR #### [address] [address] #### CVFLURV #### [place] [id number] [place], [place] [address] SARS-CoV-2 (COVID-19) RNA IVANA+probe Ql (Unsp spec) Negative Normal Negative [facility] Comment on above: Result Comment: Note s [id number] This test has been authorized by FDA [...] results. Performed By: #### M RSAPCR #### [address] [address] #### CVFLURV #### [place] [id number] [place] [id number] LABORATORYOrdered By: Guillermo Lebron on 03-04-2025 Adenovirus DNA IVANA+non-probe Ql (Nph) Not Detected *NA* (03/04/25 10:09 AM) Invalid Interpretation Code Not Detected AH Auto Viro/Sero SS B. parapertussis [id number] DNA IVANA+non-probe Ql (Nph) Not Detected *NA* [...] his assay has been validated in the [facility] for use with nasopharyngeal specimens in [facility]. If a non-validated specimen or test collection [...] Comment on above: Result Comment: [place] [id number] FLUBV RNA IVANA+probe Ql (Resp) Negative 10 (03/04/25 10:09 AM) Normal Negative [facility]Sero [facility] Comment on above: Result Comment: [place] [id number] RSV PCR Negative 11 (03/04/25 10:09 AM) Normal Negative [facility]Sero SS Comment on above: Result Comment: Note s [id number] SARS-CoV-2 (COVID-19) RNA IVANA+probe Ql (Resp) Negative 7, 8 (03/04/25 10:09 AM) Normal Negative [facility]Sero SS Comment on above: Result Comment: Note s [id number] Interpretive Data: T his test has been [...] ng/L Male: 0-76 ng/L Testing performed on [employer] using a homogeneous sandwich chemiluminescent immunoassay based on [employer] technology. Urea nitrogen [Mass/Vol] 15 mg/dL Normal 7 - 18 mg/dL AO ADM SS Urea nitrogen/Creatinine [Mass ratio] 18 ratio Normal 7 - 27 ratio AO ADM SS WBC (Bld) [#/Vol] 8.4 103/mcL Normal 4.5 - 10.8 10^3/mcL AO Workflow SS PBNPon 03-04-2025 Natriuretic peptide B (Bld) [Mass/Vol] 2664 pg/mL High 0-125 [facility] Comment on above: Result Comment: NT-p roBNP results of less than 300 pg/mL effectively rules out acute congestive heart failure with 99% negative predictive value. Performed By: #### A DIFF, PBNP, TROPHS, CBC, GFR, MDW, ANEU, BMP #### [place] [address] RESCVIDon 03-04-2025 Adenovirus Not detected Normal Not Detected [facility] Comment on above: Performed By: #### M RSAPCR #### [place] [address] #### CVFLURV #### [place] [address] Bordetella Parapertussis Not detected Normal Not Detected [facility] Comment on above: Performed By: #### M RSAPCR #### [place] [address] #### CVFLURV #### [place] [address] Bordetella Pertussis Not detected Normal Not Detected [facility] Comment on above: Performed By: #### M RSAPCR #### [place] [address] #### CVFLURV #### [address] [address] Chlamydophila pneumoniae Not detected Normal Not Detected [facility] Comment on above: Performed By: #### M RSAPCR #### [place] [address] #### CVFLURV #### [place] [address] Coronavirus 229E (Not COVID-19) Not detected Normal Not Detected [facility] Comment on above: Performed By: #### M RSAPCR #### [place] [address] #### CVFLURV #### [address] [address] Coronavirus HKU1 (Not COVID-19) Not detected Normal Not Detected [facility] Comment on above: Performed By: #### M RSAPCR #### [place] [address] #### CVFLURV #### [address] [address] Coronavirus NL63 (Not COVID-19) Not detected Normal Not Detected [facility] Comment on above: Performed By: #### M RSAPCR #### [place] [address] #### CVFLURV #### [address] [address] Coronavirus OC43 (Not COVID-19) Not detected Normal Not Detected [facility] Comment on above: Performed By: #### M RSAPCR #### [place] [address] #### CVFLURV #### [address] [address] Human Metapneumovirus Not detected Normal Not Detected [facility] Comment on above: Performed By: #### M RSAPCR #### [place] [address] #### CVFLURV #### [address] [address] Influenza A Not detected Normal Not Detected [facility] Comment on above: Performed By: #### M RSAPCR #### [place] [id number] #### CVFLURV #### [address] [address] Influenza B Not detected Normal Not Detected [facility] Comment on above: Performed By: #### M RSAPCR #### [address] [place], [place] [address] #### CVFLURV #### [address] [address] Mycoplasma pneumoniae Not detected Normal Not Detected [facility] Comment on above: Performed By: #### M RSAPCR #### [facility] [address] [place] [address] #### CVFLURV #### [address] [address] Parainfluenza 1 Not detected Normal Not Detected [facility] Comment on above: Performed By: #### M RSAPCR #### [place] [id number] #### CVFLURV #### [address] [address] Parainfluenza 2 Not detected Normal Not Detected [facility] Comment on above: Performed By: #### M RSAPCR #### [place] [address] #### CVFLURV #### [address] [address] Parainfluenza 3 Not detected Normal Not Detected [facility] Comment on above: Performed By: #### M RSAPCR #### [address] [address] #### CVFLURV #### [address] [address] Parainfluenza 4 Not detected Normal Not Detected [facility] Comment on above: Performed By: #### M RSAPCR #### [facility] [address] [place] [address] #### CVFLURV #### [address] [address] Respiratory Syncytial Virus Not detected Normal Not Detected [facility] Comment on above: Performed By: #### M RSAPCR #### [address] [address] #### CVFLURV #### [address] [address] Rhinovirus/Enterovirus Not detected Normal Not Detected [facility] Comment on above: Performed By: #### M RSAPCR #### [address] [address] #### CVFLURV #### [address] [address] SARS-CoV-2 (COVID-19) RNA IVANA+probe Ql (Unsp spec) Not detected Normal Not Detected [facility] Comment on above: Result Comment: This assay has been validated in the [facility] for use with nasopharyngeal specimens in [facility]. If a non-validated specimen or test collection [...] authorities. Performed By: #### M RSAPCR #### [address] [address] #### CVFLURV #### [place] [id number] [place], [place] [address] [facility] 03-04-2025 High Sensitivity Troponin I 33 ng/L Normal 0-51 [facility] Comment on above: Result Comment: High Sensitive Troponin I Reference Ranges: Female: 0-51 ng/L Male: 0-76 ng/L Testing performed on [employer] using a homogeneous sandwich chemiluminescent immunoassay based on [employer] technology. Performed By: #### M RSAPCR #### [facility] [address] [place] [address] #### CVFLURV #### [place] [id number] [place], [place] [address] XR CHEST 1 VIEWon 03-04-2025 XR CHEST [...] 6:41:45 AM Ordering Provider: EMMANUEL KILLIAN Normal [facility] MYCOon 02-21-2025 Mycoplasma IgM Negative [facility] Comment on above: Result Comment: INTE [...] TROPHS, CBC, GFR, MDW, ANEU, BMP #### [place] [id number] [place], [place] [address] .Auto Diffon 02-20-2025 Basophil, Absolute 0.1 10 3/mcL Normal 0.0-0.3 [facility] Comment on above: Performed By: #### A DIFF, PBNP, TROPHS, CBC, GFR, MDW, ANEU, BMP #### [address] [address] Basophils/100 WBC (Bld) 1.4 % Normal 0.0-2.5 [facility] Comment on above: Performed By: #### A DIFF, PBNP, TROPHS, CBC, GFR, MDW, ANEU, BMP #### [address] [address] Eosinophil, Absolute 0.2 10 3/mcL Normal 0.0-0.7 [facility] Comment on above: Performed By: #### A DIFF, PBNP, TROPHS, CBC, GFR, MDW, ANEU, BMP #### [address] [address] Eosinophils/100 WBC (Bld) 2.3 % Normal 0.0-6.0 [facility] Comment on above: Performed By: #### A DIFF, PBNP, TROPHS, CBC, GFR, MDW, ANEU, BMP #### [address] [address] Lymphocyte, Absolute 1.9 10 3/mcL Normal 0.9-4.3 [facility] Comment on above: Performed By: #### A DIFF, PBNP, TROPHS, CBC, GFR, MDW, ANEU, BMP #### [address] [address] Lymphocytes/100 WBC (Bld) 28.3 % Normal 20.0-40.0 [facility] Comment on above: Performed By: #### A DIFF, PBNP, TROPHS, CBC, GFR, MDW, ANEU, BMP #### [address] [address] Monocyte, Absolute 1.0 10 3/mcL Normal 0.1-1.4 [facility] Comment on above: Performed By: #### A DIFF, PBNP, TROPHS, CBC, GFR, MDW, ANEU, BMP #### [address] [address] Monocytes/100 WBC (Bld) 14.2 % High 2.0-13.0 [facility] Comment on above: Performed By: #### A DIFF, PBNP, TROPHS, CBC, GFR, MDW, ANEU, BMP #### [place] [address] [place], [place] [address] Neutrophils/100 WBC (Bld) 53.8 % Normal 50.0-75.0 [facility] Comment on above: Performed By: #### A DIFF, PBNP, TROPHS, CBC, GFR, MDW, ANEU, BMP #### [address] [address] .GFRon 02-20-2025 Estimated Glomerular Filtration Rate 88 ml/min/1.73sqm Normal [facility] Comment on above: Result Comment: Stages [...] TROPHS, CBC, GFR, MDW, ANEU, BMP #### [address] [address] .NEUABSon 02-20-2025 Neutrophil, Absolute 3.7 10 3/mcL Normal 2.3-8.1 [facility] Comment on above: Performed By: #### A DIFF, PBNP, TROPHS, CBC, GFR, MDW, ANEU, BMP #### [address] [address] BMPon 02-20-2025 BUN/Creatinine Ratio 22 ratio Normal 7-27 [facility] Comment on above: Performed By: #### A DIFF, PBNP, TROPHS, CBC, GFR, MDW, ANEU, BMP #### [address] [address] Calcium [Mass/Vol] 8.1 mg/dL Low 8.4-10.2 [facility] Comment on above: Performed By: #### A DIFF, PBNP, TROPHS, CBC, GFR, MDW, ANEU, BMP #### [address] [address] Chloride [Moles/Vol] 107 mmol/L Normal 98-107 [facility] Comment on above: Performed By: #### A DIFF, PBNP, TROPHS, CBC, GFR, MDW, ANEU, BMP #### [address] [address] CO2 [Moles/Vol] 32 mmol/L High 23-31 [facility] Comment on above: Performed By: #### A DIFF, PBNP, TROPHS, CBC, GFR, MDW, ANEU, BMP #### [address] [address] Creatinine [Mass/Vol] 0.74 mg/dL Normal 0.55-1.02 [facility] Comment on above: Result Comment: Test ing performed on Siemens Dimension EXL analyzer using a modified kinetic [place] technique. Performed By: #### A DIFF, PBNP, TROPHS, CBC, GFR, MDW, ANEU, BMP #### [address] [address] Electrolyte Balance 3.0 mEq/L Low 4.0-15.0 [facility] Comment on above: Performed By: #### A DIFF, PBNP, TROPHS, CBC, GFR, MDW, ANEU, BMP #### [address] [address] Glucose [Mass/Vol] 105 mg/dL Normal 80-115 [facility] Comment on above: Performed By: #### A DIFF, PBNP, TROPHS, CBC, GFR, MDW, ANEU, BMP #### [address] [address] Potassium [Moles/Vol] 3.9 mmol/L Normal 3.5-5.1 [facility] Comment on above: Performed By: #### A DIFF, PBNP, TROPHS, CBC, GFR, MDW, ANEU, BMP #### [place] [address] [place] [id number] Sodium [Moles/Vol] 142 mmol/L Normal 136-145 [facility] Comment on above: Performed By: #### A DIFF, PBNP, TROPHS, CBC, GFR, MDW, ANEU, BMP #### [place] [id number] Urea nitrogen [Mass/Vol] 16 mg/dL Normal 7-18 [facility] Comment on above: Performed By: #### A DIFF, PBNP, TROPHS, CBC, GFR, MDW, ANEU, BMP #### [place] [id number] CBCon 02-20-2025 Erythrocyte distribution width (RBC) [Ratio] 16.1 % High 11.5-15.5 [facility] Comment on above: Performed By: #### A DIFF, PBNP, TROPHS, CBC, GFR, MDW, ANEU, BMP #### [address] [address] Hematocrit (Bld) [Volume fraction] 37.9 % Normal 34.0-46.0 [facility] Comment on above: Performed By: #### A DIFF, PBNP, TROPHS, CBC, GFR, MDW, ANEU, BMP #### [address] [address] Hgb 12.2 G/dL Normal 12.0-16.0 [facility] Comment on above: Performed By: #### A DIFF, PBNP, TROPHS, CBC, GFR, MDW, ANEU, BMP #### [address] [address] MCH (RBC) [Entitic mass] 29.4 pg Normal 27.0-33.0 [facility] Comment on above: Performed By: #### A DIFF, PBNP, TROPHS, CBC, GFR, MDW, ANEU, BMP #### [address] [address] MCHC 32.2 G/dL Normal 32.0-36.0 [facility] Comment on above: Performed By: #### A DIFF, PBNP, TROPHS, CBC, GFR, MDW, ANEU, BMP #### [address] [address] MCV (RBC) [Entitic vol] 91.2 fL Normal 80.0-99.0 [facility] Comment on above: Performed By: #### A DIFF, PBNP, TROPHS, CBC, GFR, MDW, ANEU, BMP #### [address] [address] Platelet 304 10 3/mcL Normal 150-450 [facility] Comment on above: Performed By: #### A DIFF, PBNP, TROPHS, CBC, GFR, MDW, ANEU, BMP #### [address] [address] Platelet mean volume (Bld) [Entitic vol] 8.4 fL Normal 6.6-10.5 [facility] Comment on above: Performed By: #### A DIFF, PBNP, TROPHS, CBC, GFR, MDW, ANEU, BMP #### [address] [address] RBC 4.16 10 6/mcL Normal 4.10-5.30 [facility] Comment on above: Performed By: #### A DIFF, PBNP, TROPHS, CBC, GFR, MDW, ANEU, BMP #### [address] [address] WBC 6.9 10 3/mcL Normal 4.5-10.8 [facility] Comment on above: Performed By: #### A DIFF, PBNP, TROPHS, CBC, GFR, MDW, ANEU, BMP #### [address] [address] MGon 02-20-2025 Magnesium [Mass/Vol] 1.6 mg/dL Low 1.8-2.4 [facility] Comment on above: Performed By: #### A DIFF, PBNP, TROPHS, CBC, GFR, MDW, ANEU, BMP #### [address] [address] MYCOon 02-20-2025 Mycoplasma IgG Positive Normal [facility] Comment on above: Result Comment: INTE RPRETATION OF MYCOPLASMA IgG BY EIA: Negative: No detectable M. pneumoniae IgG antibody. Positive: Mycoplasma pneumoniae IgG antibody Detected. Equivocal: Equivocal for IgG antibodies to Mycoplasma pneumoniae. Suggest repeat testing in 10-14 days. Performed By: #### A DIFF, PBNP, TROPHS, CBC, GFR, MDW, ANEU, BMP #### [address] [address] .Auto Diffon 02-19-2025 Basophil, Absolute 0.1 10 3/mcL Normal 0.0-0.3 [facility] Comment on above: Performed By: #### A DIFF, PBNP, TROPHS, CBC, GFR, MDW, ANEU, BMP #### [address] [address] Basophils/100 WBC (Bld) 0.6 % Normal 0.0-2.5 [facility] Comment on above: Performed By: #### A DIFF, PBNP, TROPHS, CBC, GFR, MDW, ANEU, BMP #### [address] [address] Eosinophil, Absolute 0.1 10 3/mcL Normal 0.0-0.7 [facility] Comment on above: Performed By: #### A DIFF, PBNP, TROPHS, CBC, GFR, MDW, ANEU, BMP #### [address] [address] Eosinophils/100 WBC (Bld) 0.6 % Normal 0.0-6.0 [facility] Comment on above: Performed By: #### A DIFF, PBNP, TROPHS, CBC, GFR, MDW, ANEU, BMP #### [address] [address] Lymphocyte, Absolute 1.7 10 3/mcL Normal 0.9-4.3 [facility] Comment on above: Performed By: #### A DIFF, PBNP, TROPHS, CBC, GFR, MDW, ANEU, BMP #### [address] [address] Lymphocytes/100 WBC (Bld) 17.7 % Low 20.0-40.0 [facility] Comment on above: Performed By: #### A DIFF, PBNP, TROPHS, CBC, GFR, MDW, ANEU, BMP #### [address] [address] Monocyte, Absolute 0.8 10 3/mcL Normal 0.1-1.4 [facility] Comment on above: Performed By: #### A DIFF, PBNP, TROPHS, CBC, GFR, MDW, ANEU, BMP #### [address] [address] Monocytes/100 WBC (Bld) 8.0 % Normal 2.0-13.0 [facility] Comment on above: Performed By: #### A DIFF, PBNP, TROPHS, CBC, GFR, MDW, ANEU, BMP #### [address] [address] Neutrophils/100 WBC (Bld) 73.1 % Normal 50.0-75.0 [facility] Comment on above: Performed By: #### A DIFF, PBNP, TROPHS, CBC, GFR, MDW, ANEU, BMP #### [address] [address] Basophil, Absolute 0.1 10 3/mcL Normal 0.0-0.3 [facility] Comment on above: Performed By: #### A DIFF, PBNP, TROPHS, CBC, GFR, MDW, ANEU, BMP #### [address] [address] Basophils/100 WBC (Bld) 0.7 % Normal 0.0-2.5 [facility] Comment on above: Performed By: #### A DIFF, PBNP, TROPHS, CBC, GFR, MDW, ANEU, BMP #### [address] [address] Eosinophil, Absolute 0.2 10 3/mcL Normal 0.0-0.7 [facility] Comment on above: Performed By: #### A DIFF, PBNP, TROPHS, CBC, GFR, MDW, ANEU, BMP #### [address] [address] Eosinophils/100 WBC (Bld) 1.7 % Normal 0.0-6.0 [facility] Comment on above: Performed By: #### A DIFF, PBNP, TROPHS, CBC, GFR, MDW, ANEU, BMP #### [address] [address] Lymphocyte, Absolute 2.3 10 3/mcL Normal 0.9-4.3 [facility] Comment on above: Performed By: #### A DIFF, PBNP, TROPHS, CBC, GFR, MDW, ANEU, BMP #### [address] [address] Lymphocytes/100 WBC (Bld) 21.0 % Normal 20.0-40.0 [facility] Comment on above: Performed By: #### A DIFF, PBNP, TROPHS, CBC, GFR, MDW, ANEU, BMP #### [address] [address] Monocyte, Absolute 1.0 10 3/mcL Normal 0.1-1.4 [facility] Comment on above: Performed By: #### A DIFF, PBNP, TROPHS, CBC, GFR, MDW, ANEU, BMP #### [address] [address] Monocytes/100 WBC (Bld) 9.2 % Normal 2.0-13.0 [facility] Comment on above: Performed By: #### A DIFF, PBNP, TROPHS, CBC, GFR, MDW, ANEU, BMP #### [address] [address] Neutrophils/100 WBC (Bld) 67.4 % Normal 50.0-75.0 [facility] Comment on above: Performed By: #### A DIFF, PBNP, TROPHS, CBC, GFR, MDRoshan, MARK, BMP #### [address] [address] .GFRon 02-19-2025 Estimated Glomerular Filtration Rate 90 ml/min/1.73sqm Normal [facility] Comment on above: Result Comment: Stages [...] TROPHS, CBC, GFR, MDRoshan, MARK, BMP #### [address] [address] Estimated Glomerular Filtration Rate 81 ml/min/1.73sqm Normal [facility] Comment on above: Result Comment: Stages [...] TROPHS, CBC, GFR, MDW, ANEU, BMP #### [address] [address] .MDWon 02-19-2025 Monocyte Distribution Width 18.70 Normal 0.00-20.00 [facility] Comment on above: Result Comment: For ED adult patients suspected of sepsis, MDW<=20.0 does not rule out sepsis or risk of sepsis Performed By: #### A DIFF, PBNP, TROPHS, CBC, GFR, MDW, ANEU, BMP #### [address] [address] .NEUABSon 02-19-2025 Neutrophil, Absolute 7.2 10 3/mcL Normal 2.3-8.1 [facility] Comment on above: Performed By: #### A DIFF, PBNP, TROPHS, CBC, GFR, MDW, ANEU, BMP #### [address] [address] Neutrophil, Absolute 7.3 10 3/mcL Normal 2.3-8.1 [facility] Comment on above: Performed By: #### A DIFF, PBNP, TROPHS, CBC, GFR, MDW, ANEU, BMP #### [address] [address] BMPon 02-19-2025 BUN/Creatinine Ratio 19 ratio Normal 7-27 [facility] Comment on above: Performed By: #### A DIFF, PBNP, TROPHS, CBC, GFR, MDW, ANEU, BMP #### [address] [address] Calcium [Mass/Vol] 8.2 mg/dL Low 8.4-10.2 [facility] Comment on above: Performed By: #### A DIFF, PBNP, TROPHS, CBC, GFR, MDW, ANEU, BMP #### [address] [address] Chloride [Moles/Vol] 108 mmol/L High 98-107 [facility] Comment on above: Performed By: #### A DIFF, PBNP, TROPHS, CBC, GFR, MDW, ANEU, BMP #### [address] [address] CO2 [Moles/Vol] 28 mmol/L Normal 23-31 [facility] Comment on above: Performed By: #### A DIFF, PBNP, TROPHS, CBC, GFR, MDW, ANEU, BMP #### [address] [address] Creatinine [Mass/Vol] 0.72 mg/dL Normal 0.55-1.02 [facility] Comment on above: Result Comment: Test ing performed on Siemens Dimension EXL analyzer using a modified kinetic [place] technique. Performed By: #### A DIFF, PBNP, TROPHS, CBC, GFR, MDW, ANEU, BMP #### [address] [address] Electrolyte Balance 7.0 mEq/L Normal 4.0-15.0 [facility] Comment on above: Performed By: #### A DIFF, PBNP, TROPHS, CBC, GFR, MDW, ANEU, BMP #### [address] [address] Glucose [Mass/Vol] 132 mg/dL High 80-115 [facility] Comment on above: Performed By: #### A DIFF, PBNP, TROPHS, CBC, GFR, MDW, ANEU, BMP #### [address] [address] Potassium [Moles/Vol] 4.7 mmol/L Normal 3.5-5.1 [facility] Comment on above: Performed By: #### A DIFF, PBNP, TROPHS, CBC, GFR, MDW, ANEU, BMP #### [address] [address] Sodium [Moles/Vol] 143 mmol/L Normal 136-145 [facility] Comment on above: Performed By: #### A DIFF, PBNP, TROPHS, CBC, GFR, MDW, ANEU, BMP #### [address] [address] Urea nitrogen [Mass/Vol] 14 mg/dL Normal 7-18 [facility] Comment on above: Performed By: #### A DIFF, PBNP, TROPHS, CBC, GFR, MDW, ANEU, BMP #### [address] [address] CBCon 02-19-2025 Erythrocyte distribution width (RBC) [Ratio] 15.7 % High 11.5-15.5 [facility] Comment on above: Performed By: #### A DIFF, PBNP, TROPHS, CBC, GFR, MDW, ANEU, BMP #### [place] [address] Hematocrit (Bld) [Volume fraction] 38.8 % Normal 34.0-46.0 [facility] Comment on above: Performed By: #### A DIFF, PBNP, TROPHS, CBC, GFR, MDW, ANEU, BMP #### [place] [address] Hgb 12.6 G/dL Normal 12.0-16.0 [facility] Comment on above: Performed By: #### A DIFF, PBNP, TROPHS, CBC, GFR, MDW, ANEU, BMP #### [place] [address] MCH (RBC) [Entitic mass] 30.0 pg Normal 27.0-33.0 [facility] Comment on above: Performed By: #### A DIFF, PBNP, TROPHS, CBC, GFR, MDW, ANEU, BMP #### [place] [address] MCHC 32.5 G/dL Normal 32.0-36.0 [facility] Comment on above: Performed By: #### A DIFF, PBNP, TROPHS, CBC, GFR, MDW, ANEU, BMP #### [place] [id number] MCV (RBC) [Entitic vol] 92.2 fL Normal 80.0-99.0 [facility] Comment on above: Performed By: #### A DIFF, PBNP, TROPHS, CBC, GFR, MDW, ANEU, BMP #### [address] [address] Platelet 310 10 3/mcL Normal 150-450 [facility] Comment on above: Performed By: #### A DIFF, PBNP, TROPHS, CBC, GFR, MDW, ANEU, BMP #### [address] [address] Platelet mean volume (Bld) [Entitic vol] 8.6 fL Normal 6.6-10.5 [facility] Comment on above: Performed By: #### A DIFF, PBNP, TROPHS, CBC, GFR, MDW, ANEU, BMP #### [address] [address] RBC 4.21 10 6/mcL Normal 4.10-5.30 [facility] Comment on above: Performed By: #### A DIFF, PBNP, TROPHS, CBC, GFR, MDW, ANEU, BMP #### [address] [address] WBC 9.8 10 3/mcL Normal 4.5-10.8 [facility] Comment on above: Performed By: #### A DIFF, PBNP, TROPHS, CBC, GFR, MDW, ANEU, BMP #### [address] [address] Erythrocyte distribution width (RBC) [Ratio] 16.0 % High 11.5-15.5 [facility] Comment on above: Performed By: #### A DIFF, PBNP, TROPHS, CBC, GFR, MDW, ANEU, BMP #### [address] [address] Hematocrit (Bld) [Volume fraction] 39.3 % Normal 34.0-46.0 [facility] Comment on above: Performed By: #### A DIFF, PBNP, TROPHS, CBC, GFR, MDW, ANEU, BMP #### [address] [address] Hgb 12.8 G/dL Normal 12.0-16.0 [facility] Comment on above: Performed By: #### A DIFF, PBNP, TROPHS, CBC, GFR, MDW, ANEU, BMP #### [address] [address] MCH (RBC) [Entitic mass] 29.7 pg Normal 27.0-33.0 [facility] Comment on above: Performed By: #### A DIFF, PBNP, TROPHS, CBC, GFR, MDW, ANEU, BMP #### [address] [address] MCHC 32.6 G/dL Normal 32.0-36.0 [facility] Comment on above: Performed By: #### A DIFF, PBNP, TROPHS, CBC, GFR, MDW, ANEU, BMP #### [place] [address] MCV (RBC) [Entitic vol] 91.1 fL Normal 80.0-99.0 [facility] Comment on above: Performed By: #### A DIFF, PBNP, TROPHS, CBC, GFR, MDW, ANEU, BMP #### [address] [address] Platelet 327 10 3/mcL Normal 150-450 [facility] Comment on above: Performed By: #### A DIFF, PBNP, TROPHS, CBC, GFR, MDW, ANEU, BMP #### [place] [address] Platelet mean volume (Bld) [Entitic vol] 8.2 fL Normal 6.6-10.5 [facility] Comment on above: Performed By: #### A DIFF, PBNP, TROPHS, CBC, GFR, MDW, ANEU, BMP #### [place] [address] RBC 4.31 10 6/mcL Normal 4.10-5.30 [facility] Comment on above: Performed By: #### A DIFF, PBNP, TROPHS, CBC, GFR, MDW, ANEU, BMP #### [place] [address] WBC 10.8 10 3/mcL Normal 4.5-10.8 [facility] Comment on above: Performed By: #### A DIFF, PBNP, TROPHS, CBC, GFR, MDW, ANEU, BMP #### [address] [address] CMPon 02-19-2025 Albumin Level 3.3 G/dL Low 3.4-4.8 [facility] Comment on above: Performed By: #### A DIFF, PBNP, TROPHS, CBC, GFR, MDW, ANEU, BMP #### [address] [address] Albumin/Globulin [Mass ratio] 1.0 {ratio} Low 1.1-2.5 [facility] Comment on above: Performed By: #### A DIFF, PBNP, TROPHS, CBC, GFR, MDW, ANEU, BMP #### [address] [address] ALP [Catalytic activity/Vol] 104 U/L Normal 40-135 [facility] Comment on above: Performed By: #### A DIFF, PBNP, TROPHS, CBC, GFR, MDW, ANEU, BMP #### [address] [address] ALT [Catalytic activity/Vol] 36 U/L Normal 14-59 [facility] Comment on above: Performed By: #### A DIFF, PBNP, TROPHS, CBC, GFR, MDW, ANEU, BMP #### [address] [address] AST [Catalytic activity/Vol] 38 U/L Normal 10-40 [facility] Comment on above: Performed By: #### A DIFF, PBNP, TROPHS, CBC, GFR, MDW, ANEU, BMP #### [address] [address] Bili Total 0.2 mg/dL Normal 0.2-1.0 [facility] Comment on above: Result Comment: Use of this assay is not recommended for patients undergoing treatment with eltrombopag due to the potential for falsely elevated results. Performed By: #### A DIFF, PBNP, TROPHS, CBC, GFR, MDW, ANEU, BMP #### [address] [address] BUN/Creatinine Ratio 19 ratio Normal 7-27 [facility] Comment on above: Performed By: #### A DIFF, PBNP, TROPHS, CBC, GFR, MDW, ANEU, BMP #### [address] [address] Calcium [Mass/Vol] 8.2 mg/dL Low 8.4-10.2 [facility] Comment on above: Performed By: #### A DIFF, PBNP, TROPHS, CBC, GFR, MDW, ANEU, BMP #### [address] [address] Chloride [Moles/Vol] 106 mmol/L Normal 98-107 [facility] Comment on above: Performed By: #### A DIFF, PBNP, TROPHS, CBC, GFR, MDW, ANEU, BMP #### [address] [address] CO2 [Moles/Vol] 32 mmol/L High 23-31 [facility] Comment on above: Performed By: #### A DIFF, PBNP, TROPHS, CBC, GFR, MDW, ANEU, BMP #### [address] [address] Creatinine [Mass/Vol] 0.79 mg/dL Normal 0.55-1.02 [facility] Comment on above: Result Comment: Test ing performed on Siemens Dimension EXL analyzer using a modified kinetic [place] technique. Performed By: #### A DIFF, PBNP, TROPHS, CBC, GFR, MDW, ANEU, BMP #### [address] [address] Electrolyte Balance 4.0 mEq/L Normal 4.0-15.0 [facility] Comment on above: Performed By: #### A DIFF, PBNP, TROPHS, CBC, GFR, MDW, ANEU, BMP #### [address] [address] Globulin 3.2 G/dL Normal 1.5-3.8 [facility] Comment on above: Performed By: #### A DIFF, PBNP, TROPHS, CBC, GFR, MDW, ANEU, BMP #### [address] [address] Glucose [Mass/Vol] 114 mg/dL Normal 80-115 [facility] Comment on above: Performed By: #### A DIFF, PBNP, TROPHS, CBC, GFR, MDW, ANEU, BMP #### [address] [address] Potassium [Moles/Vol] 4.2 mmol/L Normal 3.5-5.1 [facility] Comment on above: Performed By: #### A DIFF, PBNP, TROPHS, CBC, GFR, MDW, ANEU, BMP #### [address] [address] Sodium [Moles/Vol] 142 mmol/L Normal 136-145 [facility] Comment on above: Performed By: #### A DIFF, PBNP, TROPHS, CBC, GFR, MDW, ANEU, BMP #### [address] [address] Total Protein 6.5 G/dL Normal 6.4-8.2 [facility] Comment on above: Performed By: #### A DIFF, PBNP, TROPHS, CBC, GFR, MDW, ANEU, BMP #### [address] [address] Urea nitrogen [Mass/Vol] 15 mg/dL Normal 7-18 [facility] Comment on above: Performed By: #### A DIFF, PBNP, TROPHS, CBC, GFR, MDW, ANEU, BMP #### [address] [address] CVFLURVon 02-19-2025 FLU A PCR Negative Normal Negative [facility] Comment on above: Performed By: #### M RSAPCR #### [place] [address] #### CVFLURV #### [place] [address] FLU B PCR Negative Normal Negative [facility] Comment on above: Performed By: #### M RSAPCR #### [address] [address] #### CVFLURV #### [place] [address] RSV PCR Negative Normal Negative [facility] Comment on above: Performed By: #### M RSAPCR #### [place] [address] #### CVFLURV #### [place] [address] SARS-CoV-2 (COVID-19) RNA IVANA+probe Ql (Unsp spec) Negative Normal Negative [facility] Comment on above: Result Comment: Resu [...] results. Performed By: #### M RSAPCR #### [place] [address] #### CVFLURV #### [place] [address] LACon 02-19-2025 Lactic Acid Lvl 1.1 mmol/L Normal 0.4-2.0 [facility] Comment on above: Performed By: #### A DIFF, PBNP, TROPHS, CBC, GFR, MDW, ANEU, BMP #### [address] [address] MGon 02-19-2025 Magnesium [Mass/Vol] 1.8 mg/dL Normal 1.8-2.4 [facility] Comment on above: Performed By: #### A DIFF, PBNP, TROPHS, CBC, GFR, MDW, ANEU, BMP #### [address] [address] MRSAPCRon 02-19-2025 MRSA (PCR) Not detected Normal Not Detected [facility] Comment on above: Result Comment: Note s [id number] Performed By: #### M RSAPCR #### [place] [address] #### CVFLURV #### [place] [address] MRSA PCR Int Normal [facility] Comment on above: Result Comment: MRSA [...] Below Performed By: #### M RSAPCR #### [place] [address] #### CVFLURV #### [address] [address] PBNPon 02-19-2025 Natriuretic peptide B (Bld) [Mass/Vol] 2711 pg/mL High 0-125 [facility] Comment on above: Result Comment: NT-p roBNP results of less than 300 pg/mL effectively rules out acute congestive heart failure with 99% negative predictive value. Performed By: #### A DIFF, PBNP, TROPHS, CBC, GFR, MDW, ANEU, BMP #### [place] [id number] RESCVIDon 02-19-2025 Adenovirus Not detected Normal Not Detected [facility] Comment on above: Performed By: #### M RSAPCR #### [place] [address] #### CVFLURV #### [address] [address] Bordetella Parapertussis Not detected Normal Not Detected [facility] Comment on above: Performed By: #### M RSAPCR #### [place] [address] #### CVFLURV #### [address] [address] Bordetella Pertussis Not detected Normal Not Detected [facility] Comment on above: Performed By: #### M RSAPCR #### [place] [address] #### CVFLURV #### [address] [address] Chlamydophila pneumoniae Not detected Normal Not Detected [facility] Comment on above: Performed By: #### M RSAPCR #### [place] [address] #### CVFLURV #### [address] [address] Coronavirus 229E (Not COVID-19) Not detected Normal Not Detected [facility] Comment on above: Performed By: #### M RSAPCR #### [place] [address] #### CVFLURV #### [address] [address] Coronavirus HKU1 (Not COVID-19) Not detected Normal Not Detected [facility] Comment on above: Performed By: #### M RSAPCR #### [place] [id number] #### CVFLURV #### [address] [address] Coronavirus NL63 (Not COVID-19) Not detected Normal Not Detected [facility] Comment on above: Performed By: #### M RSAPCR #### [facility] [address] [place] [address] #### CVFLURV #### [address] [address] Coronavirus OC43 (Not COVID-19) Not detected Normal Not Detected [facility] Comment on above: Performed By: #### M RSAPCR #### [facility] [address] [place], [place] [id number] #### CVFLURV #### [address] [address] Human Metapneumovirus Not detected Normal Not Detected [facility] Comment on above: Performed By: #### M RSAPCR #### [place] [id number] #### CVFLURV #### [address] [address] Influenza A Not detected Normal Not Detected [facility] Comment on above: Performed By: #### M RSAPCR #### [place] [id number] #### CVFLURV #### [address] [address] Influenza B Not detected Normal Not Detected [facility] Comment on above: Performed By: #### M RSAPCR #### [address] [address] #### CVFLURV #### [address] [address] Mycoplasma pneumoniae Not detected Normal Not Detected [facility] Comment on above: Performed By: #### M RSAPCR #### [facility] [address] [place] [address] #### CVFLURV #### [address] [address] Parainfluenza 1 Not detected Normal Not Detected [facility] Comment on above: Performed By: #### M RSAPCR #### [facility] [address] [place], [place] [id number] #### CVFLURV #### [address] [address] Parainfluenza 2 Not detected Normal Not Detected [facility] Comment on above: Performed By: #### M RSAPCR #### [place] [address] #### CVFLURV #### [address] [address] Parainfluenza 3 Not detected Normal Not Detected [facility] Comment on above: Performed By: #### M RSAPCR #### [place] [address] #### CVFLURV #### [address] [address] Parainfluenza 4 Not detected Normal Not Detected [facility] Comment on above: Performed By: #### M RSAPCR #### [place] [address] #### CVFLURV #### [address] [address] Respiratory Syncytial Virus Not detected Normal Not Detected [facility] Comment on above: Performed By: #### M RSAPCR #### [place] [address] #### CVFLURV #### [address] [address] Rhinovirus/Enterovirus Not detected Normal Not Detected [facility] Comment on above: Performed By: #### M RSAPCR #### [place] [address] #### CVFLURV #### [address] [address] SARS-CoV-2 (COVID-19) RNA IVANA+probe Ql (Unsp spec) Not detected Normal Not Detected [facility] Comment on above: Result Comment: This assay has been validated in the [facility] for use with nasopharyngeal specimens in [facility]. If a non-validated specimen or test collection [...] authorities. Performed By: #### M RSAPCR #### [place] [address] #### CVFLURV #### [address] [address] [facility] 02-19-2025 High Sensitivity Troponin I 27 ng/L Normal 0-51 [facility] Comment on above: Result Comment: High Sensitive Troponin I Reference Ranges: Female: 0-51 ng/L Male: 0-76 ng/L Testing performed on [employer] using a homogeneous sandwich chemiluminescent immunoassay based on [employer] technology. Performed By: #### A DIFF, PBNP, TROPHS, CBC, GFR, MDW, ANEU, BMP #### [address] [address] XR CHEST 1 VIEWon 02-19-2025 XR CHEST [...] 02/19/2025 1:37:16 AM Ordering Provider: CORNELIUS Rivero [facility] US ABDOMEN COMPLETEon 2024 US ABDOMEN [...] by: Ean Knott MD Preliminary Report By: Ena Knott MD Electronically signed By Ean Knott MD Dictated Date: 02/03/2025 11:47:18 AM Prelim Date: 02/03/2025 11:50:40 AM Sign Date: 02/03/2025 11:50:40 AM Ordering Provider: EMMA Rivero [facility] .Auto Diffon 12-11-2024 Basophil, Absolute 0.1 10 3/mcL Normal 0.0-0.2 [facility] Comment on above: Performed By: #### M RSAPCR #### [place] [address] #### CVFLURV #### [address] [address] Basophils/100 WBC (Bld) 1.4 % Normal 0.0-2.5 [facility] Comment on above: Performed By: #### M RSAPCR #### [place] [address] #### CVFLURV #### [address] [address] Eosinophil, Absolute 0.2 10 3/mcL Normal 0.0-0.7 [facility] Comment on above: Performed By: #### M RSAPCR #### [place] [address] #### CVFLURV #### [address] [address] Eosinophils/100 WBC (Bld) 2.8 % Normal 0.0-7.0 [facility] Comment on above: Performed By: #### M RSAPCR #### [place] [address] #### CVFLURV #### [address] [address] Lymphocyte, Absolute 2.1 10 3/mcL Normal 0.9-4.3 [facility] Comment on above: Performed By: #### M RSAPCR #### [place] [address] #### CVFLURV #### [address] [address] Lymphocytes/100 WBC (Bld) 29.6 % Normal 20.0-40.0 [facility] Comment on above: Performed By: #### M RSAPCR #### [address] [address] #### CVFLURV #### [address] [address] Monocyte, Absolute 0.8 10 3/mcL Normal 0.1-1.4 [facility] Comment on above: Performed By: #### M RSAPCR #### [place] [address] #### CVFLURV #### [address] [address] Monocytes/100 WBC (Bld) 11.4 % Normal 2.0-13.0 [facility] Comment on above: Performed By: #### M RSAPCR #### [place] [address] #### CVFLURV #### [address] [address] Neutrophils/100 WBC (Bld) 54.8 % Normal 50.0-75.0 [facility] Comment on above: Performed By: #### M RSAPCR #### [place] [address] #### CVFLURV #### [address] [address] .GFRon 12-11-2024 GFR Non- 56 ml/min/1.73sqm Normal [facility] Comment on above: Result Comment: GFR [...] TROPHS, CBC, GFR, MDW, ANEU, BMP #### [address] [address] GFR 67 ml/min/1.73sqm Normal [facility] Comment on above: Result Comment: GFR [...] TROPHS, CBC, GFR, MDW, ANEU, BMP #### [address] [address] .NEUABSon 12-11-2024 Neutrophil, Absolute 3.9 10 3/mcL Normal 2.3-8.1 [facility] Comment on above: Performed By: #### M RSAPCR #### [address] [address] #### CVFLURV #### [address] [address] BMPon 12-11-2024 BUN/Creatinine Ratio 14 ratio Normal 7-27 [facility] Comment on above: Performed By: #### A DIFF, PBNP, TROPHS, CBC, GFR, MDW, ANEU, BMP #### [address] [address] Chloride [Moles/Vol] 105 mmol/L Normal 98-107 [facility] Comment on above: Performed By: #### A DIFF, PBNP, TROPHS, CBC, GFR, MDW, ANEU, BMP #### [address] [address] CO2 [Moles/Vol] 30 mmol/L Normal 23-31 [facility] Comment on above: Performed By: #### A DIFF, PBNP, TROPHS, CBC, GFR, MDW, ANEU, BMP #### [address] [address] Creatinine [Mass/Vol] 0.99 mg/dL Normal 0.55-1.02 [facility] Comment on above: Result Comment: Test ing performed on Siemens Dimension EXL analyzer using a modified kinetic [place] technique. Performed By: #### A DIFF, PBNP, TROPHS, CBC, GFR, MDW, ANEU, BMP #### [address] [address] Electrolyte Balance 8.0 mEq/L Normal 4.0-15.0 [facility] Comment on above: Performed By: #### A DIFF, PBNP, TROPHS, CBC, GFR, MDW, ANEU, BMP #### [address] [address] Glucose [Mass/Vol] 117 mg/dL High 80-115 [facility] Comment on above: Performed By: #### A DIFF, PBNP, TROPHS, CBC, GFR, MDW, ANEU, BMP #### [address] [address] Potassium [Moles/Vol] 4.7 mmol/L Normal 3.5-5.1 [facility] Comment on above: Performed By: #### A DIFF, PBNP, TROPHS, CBC, GFR, MDW, ANEU, BMP #### [address] [address] Sodium [Moles/Vol] 143 mmol/L Normal 136-145 [facility] Comment on above: Performed By: #### A DIFF, PBNP, TROPHS, CBC, GFR, MDW, ANEU, BMP #### [address] [place] [address] Urea nitrogen [Mass/Vol] 14 mg/dL Normal 7-18 [facility] Comment on above: Performed By: #### A DIFF, PBNP, TROPHS, CBC, GFR, MDW, ANEU, BMP #### [address] [address] Calcium [Mass/Vol] 9.8 mg/dL Normal 8.4-10.2 [facility] Comment on above: Performed By: #### A DIFF, PBNP, TROPHS, CBC, GFR, MDW, ANEU, BMP #### [address] [address] CBCon 12-11-2024 Erythrocyte distribution width (RBC) [Ratio] 14.6 % Normal 11.5-15.5 [facility] Comment on above: Performed By: #### M RSAPCR #### [place] [address] #### CVFLURV #### [address] [address] Hematocrit (Bld) [Volume fraction] 48.2 % High 34.0-46.0 [facility] Comment on above: Performed By: #### M RSAPCR #### [place] [address] #### CVFLURV #### [address] [address] Hgb 15.6 G/dL Normal 12.0-16.0 [facility] Comment on above: Performed By: #### M RSAPCR #### [place] [address] #### CVFLURV #### [address] [address] MCH (RBC) [Entitic mass] 30.5 pg Normal 27.0-33.0 [facility] Comment on above: Performed By: #### M RSAPCR #### [place] [address] #### CVFLURV #### [address] [address] MCHC 32.4 G/dL Normal 32.0-36.0 [facility] Comment on above: Performed By: #### M RSAPCR #### [place] [address] #### CVFLURV #### [address] [address] MCV (RBC) [Entitic vol] 94.2 fL Normal 80.0-99.0 [facility] Comment on above: Performed By: #### M RSAPCR #### [place] [address] #### CVFLURV #### [address] [address] Platelet 370 10 3/mcL Normal 150-450 [facility] Comment on above: Performed By: #### M RSAPCR #### [place] [address] #### CVFLURV #### [address] [address] Platelet mean volume (Bld) [Entitic vol] 9.1 fL Normal 6.6-10.5 [facility] Comment on above: Performed By: #### M RSAPCR #### [place] [address] #### CVFLURV #### [place] [address] RBC 5.12 10 6/mcL Normal 4.10-5.30 [facility] Comment on above: Performed By: #### M RSAPCR #### [place] [address] #### CVFLURV #### [place] [address] WBC 7.0 10 3/mcL Normal 4.5-10.8 [facility] Comment on above: Performed By: #### M RSAPCR #### [place] [address] #### CVFLURV #### [facility] [address] [place], [place] [address] LABORATORYOrdered By: SYSTEM SYSTEM on 12-11-2024 Basophils [...] Comment on above: Interpretive Data: Luis reinoso [employer] (CHEST, 1992, 102:[id number]) [...] Coag (PPP) [Time] 10.4 s Normal 9.0-14.4 [facility] Comment on above: Performed By: #### M RSAPCR #### [address] [address] #### CVFLURV #### [facility] [address] [place], [place] [address] PT International Ratio 0.9 Normal [facility] Comment on above: Result Comment: The [employer] (CHEST, 1992, 102:[id number]) recommended therapeutic range for oral anticoagulant therapy is: LOW RISK: Prophylaxis of venous thrombosis INR: 2.0-3.0 Treatment of pulmonary embolism 2.0-3.0 Prevention of systemic embolism 2.0-3.0 HIGH RISK: Mechanical prosthetic valves 2.5-3.5 Performed By: #### M RSAPCR #### [facility] [address] [place] [address] #### CVFLURV #### [address] [address] .Auto Diffon 10-23-2024 Basophil, Absolute 0.1 10 3/mcL Normal 0.0-0.2 [facility] Comment on above: Performed By: #### A DIFF, PBNP, TROPHS, CBC, GFR, MDW, ANEU, BMP #### [address] [address] Basophils/100 WBC (Bld) 1.7 % Normal 0.0-2.5 [facility] Comment on above: Performed By: #### A DIFF, PBNP, TROPHS, CBC, GFR, MDW, ANEU, BMP #### [address] [address] Eosinophil, Absolute 0.1 10 3/mcL Normal 0.0-0.7 [facility] Comment on above: Performed By: #### A DIFF, PBNP, TROPHS, CBC, GFR, MDW, ANEU, BMP #### [address] [address] Eosinophils/100 WBC (Bld) 2.2 % Normal 0.0-7.0 [facility] Comment on above: Performed By: #### A DIFF, PBNP, TROPHS, CBC, GFR, MDW, ANEU, BMP #### [address] [address] Lymphocyte, Absolute 2.0 10 3/mcL Normal 0.9-4.3 [facility] Comment on above: Performed By: #### A DIFF, PBNP, TROPHS, CBC, GFR, MDW, ANEU, BMP #### [address] [address] Lymphocytes/100 WBC (Bld) 31.1 % Normal 20.0-40.0 [facility] Comment on above: Performed By: #### A DIFF, PBNP, TROPHS, CBC, GFR, MDW, ANEU, BMP #### [address] [address] Monocyte, Absolute 0.8 10 3/mcL Normal 0.1-1.4 [facility] Comment on above: Performed By: #### A DIFF, PBNP, TROPHS, CBC, GFR, MDW, ANEU, BMP #### [address] [address] Monocytes/100 WBC (Bld) 12.1 % Normal 2.0-13.0 [facility] Comment on above: Performed By: #### A DIFF, PBNP, TROPHS, CBC, GFR, MDW, ANEU, BMP #### [address] [id number] Neutrophils/100 WBC (Bld) 52.9 % Normal 50.0-75.0 [facility] Comment on above: Performed By: #### A DIFF, PBNP, TROPHS, CBC, GFR, MDW, ANEU, BMP #### [address] [id number] .GFRon 10-23-2024 GFR 102 ml/min/1.73sqm Normal [facility] Comment on above: Result Comment: GFR [...] TROPHS, CBC, GFR, MDW, ANEU, BMP #### [address] [address] GFR Non- 84 ml/min/1.73sqm Normal [facility] Comment on above: Result Comment: GFR [...] TROPHS, CBC, GFR, MDW, ANEU, BMP #### [address] [id number] .NEUABSon 10-23-2024 Neutrophil, Absolute 3.4 10 3/mcL Normal 2.3-8.1 [facility] Comment on above: Performed By: #### A DIFF, PBNP, TROPHS, CBC, GFR, MDW, ANEU, BMP #### [address] [address] A1Con 10-23-2024 Glucose [Mass/Vol] 117 mg/dL Normal [facility] Comment on above: Result Comment: Johnna mated Average Glucose calculated by equation ((28.7xA1C)-46.7) Estimated average glucose (eAG) is a calculated value from Hemoglobin A1C and is customer service representative teacher of the average blood glucose level in the last 2-3 month period. Normal range: less than 114 mg/dL Performed By: #### A DIFF, PBNP, TROPHS, CBC, GFR, MDW, ANEU, BMP #### [address] [address] HbA1c (Bld) [Mass fraction] 5.7 % Normal 4.3-6.4 [facility] Comment on above: Performed By: #### A DIFF, PBNP, TROPHS, CBC, GFR, MDW, ANEU, BMP #### [address] [address] CBCon 10-23-2024 Erythrocyte distribution width (RBC) [Ratio] 14.8 % Normal 11.5-15.5 [facility] Comment on above: Performed By: #### A DIFF, PBNP, TROPHS, CBC, GFR, MDW, ANEU, BMP #### [address] [address] Hematocrit (Bld) [Volume fraction] 44.0 % Normal 34.0-46.0 [facility] Comment on above: Performed By: #### A DIFF, PBNP, TROPHS, CBC, GFR, MDW, ANEU, BMP #### [address] [address] Hgb 14.5 G/dL Normal 12.0-16.0 [facility] Comment on above: Performed By: #### A DIFF, PBNP, TROPHS, CBC, GFR, MDW, ANEU, BMP #### [address] [address] MCH (RBC) [Entitic mass] 31.5 pg Normal 27.0-33.0 [facility] Comment on above: Performed By: #### A DIFF, PBNP, TROPHS, CBC, GFR, MDW, ANEU, BMP #### [address] [address] MCHC 32.9 G/dL Normal 32.0-36.0 [facility] Comment on above: Performed By: #### A DIFF, PBNP, TROPHS, CBC, GFR, MDW, ANEU, BMP #### [address] [address] MCV (RBC) [Entitic vol] 95.6 fL Normal 80.0-99.0 [facility] Comment on above: Performed By: #### A DIFF, PBNP, TROPHS, CBC, GFR, MDW, ANEU, BMP #### [address] [address] Platelet 365 10 3/mcL Normal 150-450 [facility] Comment on above: Performed By: #### A DIFF, PBNP, TROPHS, CBC, GFR, MDW, ANEU, BMP #### [address] [address] Platelet mean volume (Bld) [Entitic vol] 8.8 fL Normal 6.6-10.5 [facility] Comment on above: Performed By: #### A DIFF, PBNP, TROPHS, CBC, GFR, MDW, ANEU, BMP #### [address] [address] RBC 4.60 10 6/mcL Normal 4.10-5.30 [facility] Comment on above: Performed By: #### A DIFF, PBNP, TROPHS, CBC, GFR, MDW, ANEU, BMP #### [address] [address] WBC 6.5 10 3/mcL Normal 4.5-10.8 [facility] Comment on above: Performed By: #### A DIFF, PBNP, TROPHS, CBC, GFR, MDW, ANEU, BMP #### [address] [address] CMPon 10-23-2024 Albumin Level 3.4 G/dL Normal 3.4-4.8 [facility] Comment on above: Performed By: #### A DIFF, PBNP, TROPHS, CBC, GFR, MDW, ANEU, BMP #### [address] [address] Albumin/Globulin [Mass ratio] 1.0 {ratio} Low 1.1-2.5 [facility] Comment on above: Performed By: #### A DIFF, PBNP, TROPHS, CBC, GFR, MDW, ANEU, BMP #### [address] [address] ALP [Catalytic activity/Vol] 99 U/L Normal 40-135 [facility] Comment on above: Performed By: #### A DIFF, PBNP, TROPHS, CBC, GFR, MDW, ANEU, BMP #### [address] [address] ALT [Catalytic activity/Vol] 19 U/L Normal 14-59 [facility] Comment on above: Performed By: #### A DIFF, PBNP, TROPHS, CBC, GFR, MDW, ANEU, BMP #### [address] [address] AST [Catalytic activity/Vol] 17 U/L Normal 10-40 [facility] Comment on above: Performed By: #### A DIFF, PBNP, TROPHS, CBC, GFR, MDW, ANEU, BMP #### [address] [address] Bili Total 0.4 mg/dL Normal 0.2-1.0 [facility] Comment on above: Result Comment: Use of this assay is not recommended for patients undergoing treatment with eltrombopag due to the potential for falsely elevated results. Performed By: #### A DIFF, PBNP, TROPHS, CBC, GFR, MDW, ANEU, BMP #### [address] [address] BUN/Creatinine Ratio 10 ratio Normal 7-27 [facility] Comment on above: Performed By: #### A DIFF, PBNP, TROPHS, CBC, GFR, MDW, ANEU, BMP #### [address] [address] Calcium [Mass/Vol] 9.2 mg/dL Normal 8.4-10.2 [facility] Comment on above: Performed By: #### A DIFF, PBNP, TROPHS, CBC, GFR, MDW, ANEU, BMP #### [address] [address] Chloride [Moles/Vol] 103 mmol/L Normal 98-107 [facility] Comment on above: Performed By: #### A DIFF, PBNP, TROPHS, CBC, GFR, MDW, ANEU, BMP #### [address] [address] CO2 [Moles/Vol] 31 mmol/L Normal 23-31 [facility] Comment on above: Performed By: #### A DIFF, PBNP, TROPHS, CBC, GFR, MDW, ANEU, BMP #### [address] [address] Creatinine [Mass/Vol] 0.69 mg/dL Normal 0.55-1.02 [facility] Comment on above: Result Comment: Test ing performed on Siemens Dimension EXL analyzer using a modified kinetic [place] technique. Performed By: #### A DIFF, PBNP, TROPHS, CBC, GFR, MDW, ANEU, BMP #### [address] [address] Electrolyte Balance 6.0 mEq/L Normal 4.0-15.0 [facility] Comment on above: Performed By: #### A DIFF, PBNP, TROPHS, CBC, GFR, MDW, ANEU, BMP #### [address] [address] Globulin 3.4 G/dL Normal [facility] Comment on above: Performed By: #### A DIFF, PBNP, TROPHS, CBC, GFR, MDW, ANEU, BMP #### [address] [address] Glucose [Mass/Vol] 86 mg/dL Normal 80-115 [facility] Comment on above: Performed By: #### A DIFF, PBNP, TROPHS, CBC, GFR, MDW, ANEU, BMP #### [address] [address] Potassium [Moles/Vol] 4.7 mmol/L Normal 3.5-5.1 [facility] Comment on above: Performed By: #### A DIFF, PBNP, TROPHS, CBC, GFR, MDW, ANEU, BMP #### [address] [address] Sodium [Moles/Vol] 140 mmol/L Normal 136-145 [facility] Comment on above: Performed By: #### A DIFF, PBNP, TROPHS, CBC, GFR, MDW, ANEU, BMP #### [address] [place], [place] [address] Total Protein 6.8 G/dL Normal 6.4-8.2 [facility] Comment on above: Performed By: #### A DIFF, PBNP, TROPHS, CBC, GFR, MDW, ANEU, BMP #### [address] [place], [place] [address] Urea nitrogen [Mass/Vol] 7 mg/dL Normal 7-18 [facility] Comment on above: Performed By: #### A DIFF, PBNP, TROPHS, CBC, GFR, MDW, ANEU, BMP #### [address] [place], [place] [address] LABORATORYOrdered By: SYSTEM SYSTEM on 10-23-2024 Albumin [...] calculated value from Hemoglobin A1C and is customer service representative teacher of the average blood glucose level in [...] 10-23-2024 Cholesterol [Mass/Vol] 244 mg/dL High 0-200 [facility] Comment on above: Result Comment: Chol esterol Reference Interval: Less than 200 Desirable 200-239 Borderline high risk 240 and above High risk Performed By: #### A DIFF, PBNP, TROPHS, CBC, GFR, MDW, ANEU, BMP #### [address] [place], [place] [address] Cholesterol in HDL [Mass/Vol] 69 mg/dL High 40-60 [facility] Comment on above: Performed By: #### A DIFF, PBNP, TROPHS, CBC, GFR, MDW, ANEU, BMP #### [address] [place], [place] [address] Cholesterol in LDL [Mass/Vol] 148 mg/dL High 0-130 [facility] Comment on above: Performed By: #### A DIFF, PBNP, TROPHS, CBC, GFR, MDW, ANEU, BMP #### [address] [place], [place] [address] Triglyceride [Mass/Vol] 135 mg/dL Normal 0-150 [facility] Comment on above: Result Comment: Trig lyceride Reference Interval: Less than 150 Normal 150-199 Borderline high risk 200-499 High risk 500 or higher Very high risk Performed By: #### A DIFF, PBNP, TROPHS, CBC, GFR, MDW, ANEU, BMP #### [address] [address] TSHon 10-23-2024 TSH Qn 2.34 m[IU]/L Normal 0.36-3.74 [facility] Comment on above: Performed By: #### A DIFF, PBNP, TROPHS, CBC, GFR, MDW, ANEU, BMP #### [address] [address] CNCOon 10-02-2023 CNCO Letter Text Normal [facility] Frank 09-25-2023 CNPN Telephone (INTMWS) STEVEN KOENIG ([id number]) 1955 F Date Time Provider Department 09/25/23 ULISES HERMOSILLO INTMWS During your visit today, we recorded the following information about you: Nena Dozier RN 09/25/2023 4:02 PM Signed Patient calls to report that she is currently in [place] and will be there for the next several months. Patient is going to run out of medication and is unable to transfer prescriptions. Patient asking if provider would send prescriptions to [facility] pharmacy in [place]. Pended 90 day request for review. AAMIR [...] states she will be coming back to [place]. Is just in [place] for a few months to help out her son. 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 - xjcczkjyvdb-sezgbaxwp-a ilanter (TRELEGY ELLIPTA) 200-62.5-25 mcg inhalation powder Inhale 1 Puff as instructed once daily. Problem List As Of Date 09/25/2023 Noted Resolved Essential hypertension [I10] 12/14/2015 Recurrent major depress (more content not included)... Normal [facility] CNCOon 09-06-2023 CNCO Letter Text Normal [facility] CNPNon 06-13-2023 LINDAN Telephone (TREV) STEVEN KOENIG ([id number]) 1955 F Date Time Provider Department 06/13/23 [facility] PROVIDER TREV During your visit today, we recorded the following information about you: Elizabeth Ly Ma 06/13/2023 4:26 PM Signed Patient contacted via telephone regarding upcoming NEW patient appointment with Dr. Harris on 06/14/23. Patient informed of the following: This is the [facility] calling regarding your upcoming appointment with Dr. Harris. To avoid a delay in your care, please bring any radiology images that have been done outside of the [facility] on a disk to be [...] 1 TABLET BY MOUTH EVERY DAY - zkwavsmpdir-ybmgenahn-d ilanter (TRELEGY ELLIPTA) 200-62.5-25 mcg inhalation powder [...] minutes, none*09/28/2019 07/07/2020 PAD (peripheral artery disease) ([facility]) [I73.9] 09/28/2019 Anxiety and depression [F41.9, F32.A] 10/06/2019 Hypomagnesemia [E83.42] 10/22/2019 10/23/2019 Asthma [J45.909] 07/07/2020 07/07/2020 Prediabetes [R73.03] 02/04/2021 Chest pain [R07.9] 05/08/2021 Other chest pain [R07.89] 05/08/2021 Stenosis of carotid artery [I65.29] 05/08/2021 Mixed hyperlipidemia [E78.2] 05/08/2021 Abnormal stress test [R94.39] 08/26/2021 Dyspnea on exertion [R06.09] 08/26/2021 Coronary artery disease involving jamul tolbert*09/27/2021 Lung nodule [R91.1] 08/31/2022 History of hemoptysis [Z87.898] 11/20/2022 Encounter Status:Closed by ELIZABETH LY MA on 06/13/23 [facility] 06-10-2023 CNPN Telephone (INTMWS) STEVEN KOENIG ([id number]) 1955 F Date Time Provider Department 06/10/23 [...] to be taking. Please call her at [phone]. Ulises Hermosillo MD 06/13/2023 1:59 AM Signed [...] 1 TABLET BY MOUTH EVERY DAY - jdafhjtorqi-erxdwcerm-x ilanter (TRELEGY ELLIPTA) 200-62.5-25 mcg inhalation powder [...] exertion [R06.09] 08/26/2021 Coronary artery disease involving jamul tolbert*09/27/2021 Lung nodule [R91.1] 08/31/2022 History of hemoptysis [Z87.898] 11/20/2022 Encounter Status:Closed by IRENA CANTOR LPN on 06/13/23 [facility] ([id number]) 1955 F Date Time Provider Department 05/10/23 ULISES HERMOSILLO INTWS During your visit today, we recorded the following information about you: Christina Franco RN 05/10/2023 1:00 PM Signed Patient calling and asking about lab results as well as x ray results to back. Please review and advise, AAMIR Diego APRN.TELECOMMUNICATOR SUPERVISOR 05/10/2023 1:12 PM Signed Lipids are not [...] Will try cholesterol med uses [facility] in [place]. Please assist in scheduling with physical therapy and pain management. Allergies As of Date: 05/10/2023 (No Known Allergies) Date Reviewed: 05/09/2023 Reviewed by: Mely Griffin PA-C - Fully Assessed Reason for Visit: Results [95] Primary Visit Diagnosis:Radiculopathy , lumbar region [M54.16] Other Visit Diagnosis:Chronic midline low back pain with sciatica, sciatica laterality unspecified [M54.40, G89.29] Order(s):CONSULT TO PAIN MGT [924277] Order #: [id number]: 1 FUTURE rosuvastatin (CRESTOR) 5 mg tabletTake 1 tablet by mouth daily at bedtime.Disp: 30 tabletRfl: 2 CONSULT TO PHYSICAL THERAPY [9032] Order #: [id number]: 1 FUTURE Prescriptions as of 05/13/2023 - rosuvastatin (CRESTOR) 5 mg tablet Take 1 tablet by mouth daily at bedtime. - isosorbide mononitrate ER (IMDUR) 30 mg 24 hr tablet TAKE 1 TABLET BY MOUTH EVERY DAY - traZODone (DESYREL) 100 mg tablet Take 2 tablets by mouth daily at bedtime. - hvndcghjgvs-acyfplnlp-x ilanter (TRELEGY ELLIPTA) 200-62.5-25 mcg inhalation powder [...] exertion [R06.09] 08/26/2021 Coronary artery disease involving jamul tolbert*09/27/2021 Lung nodule [R91.1] 08/31/2022 History of hemoptysis [Z87.898] 11/20/2022 Prescriptions ordered this encounter Disp Refills Start End ROSUVASTATIN 5 MG TABLET 30 t* 2 05/13/2023 Route: ORAL Sig: Take 1 tablet by mouth daily at bedtime. Encounter Status:Closed by CHRISTINA FRANCO on 05/13/23 [facility] XR Lumbar spine 3 Viewson IMPRESSION: Lumbar spine degenerative changes with L4-5 disc space narrowing. Environmental Associate: SRAVANI Transcribe Date/Time: May 10 2023 11:59A Dictated by : KARMEN MOSLEY MD This examination was interpreted and the report reviewed and electronically signed by: KARMEN MOSLEY MD on May 10 2023 12:02PM [facility] DIVISION OF RADIOLOGY * * *Final [...] spine are presented. FINDINGS: There are five eex-yut-potrfaj lumbar vertebrae. No fracture or subluxations are [...] spine are presented. FINDINGS: There are five ryo-qcu-bqjjxra lumbar vertebrae. No fracture or subluxations are noted. Right-sided curvature/dextroscolios is is noted. There is L4-5 disc space narrowing. There is mild to moderate osteophyte formation. Others: There are vascular calcifications. A right-sided iliac vascular stent is noted. IMPRESSION IMPRESSION: Lumbar spine degenerative changes with L4-5 disc space narrowing. Environmental Associate: SRAVANI Transcribe Date/Time: May 10 2023 11:59A Dictated by : KARMEN MOSLEY MD This examination was interpreted and the report reviewed and electronically signed by: KARMEN MOSLEY MD on May 10 2023 12:02PM [facility] XR Lumbar spine 3 ViewsOrder ed By: [facility] Provider on 05-10-2023 [facility] CNOVon 05-09-2023 CNOV Office Visit (PULMWS ) STEVEN KOENIG ([id number]) 1955 F Date Time Provider Department 05/09/23 [...] Anxiety 12/14/2015 Bipolar affective disorder, currently active ([facility]) 01/18/2016 Dr[facility] Chronic bronchitis ([facility]) 07/26/2016 Closed skull fracture ([facility]) 1994 [facility], [facility] Coronary artery disease DDD (degenerative disc disease), cervical Endometriosis 2007 Essential hypertension 12/14/2015 GERD (gastroesophageal reflux disease) 03/13/2019 History of colon polyps History of gastric ulcer 12/14/2015 HLD (hyperlipidemia) Injury of left facial nerve 1994 PAD (peripheral artery disease) ([facility]) 09/28/2019 Recurrent major depression in partial remission ([facility]) 12/14/2015 S/P drug eluting coronary stent placement 08/25/2021 LAD and Dg2 Spinal stenosis Allergies: No Known Allergies isosorbide mononitrate ER (IMDUR) 30 mg 24 hr tablet TAKE 1 TABLET BY MOUTH EVERY DAY traZODone (DESYREL) 100 mg tablet Take 2 tablets by mouth daily at bedtime. gariotpawdg-xcizdtgnq-g ilanter (TRELEGY ELLIPTA) 200-62.5-25 mcg inhalation powder [...] NERVE DECOMPRESSION (more content not included)... Normal [facility] CBC W Auto Differential pane l (Bld)on 05-08-2023 Basophils (Bld) [#/Vol] 0.08 10*3/uL <0.11 k/uL [facility] Basophils/100 WBC (Bld) 1.0 % [facility] Differential cell count method Nom (Bld) Auto [facility] Eosinophils (Bld) [#/Vol] 0.19 10*3/uL <0.46 k/uL [facility] Eosinophils/100 WBC (Bld) 2.3 % [facility] Erythrocyte distribution width (RBC) [Ratio] 15.4 % High 11.5 - 15.0 % [facility] Hematocrit (Bld) [Volume fraction] 46.9 % High 36.0 - 46.0 % [facility] Hemoglobin (Bld) [Mass/Vol] 14.6 g/dL 11.5 - 15.5 g/dL [facility] Immature granulocytes (Bld) [#/Vol] <0.10 k/uL [facility] Immature granulocytes/100 WBC (Bld) 0.2 % [facility] Lymphocytes (Bld) [#/Vol] 2.23 10*3/uL 1.00 - 4.00 k/uL [facility] Lymphocytes/100 WBC (Bld) 27.3 % [facility] MCH (RBC) [Entitic mass] 30.7 pg 26.0 - 34.0 pg [facility] MCHC (RBC) [Mass/Vol] 31.1 g/dL 30.5 - 36.0 g/dL [facility] MCV (RBC) [Entitic vol] 98.5 fL 80.0 - 100.0 fL [facility] Monocytes (Bld) [#/Vol] 0.71 10*3/uL <0.87 k/uL [facility] Monocytes/100 WBC (Bld) 8.7 % [facility] Neutrophils (Bld) [#/Vol] 4.94 10*3/uL 1.45 - 7.50 k/uL [facility] Neutrophils/100 WBC (Bld) 60.5 % [facility] Nucleated RBC (Bld) [#/Vol] <0.01 k/uL [facility] Nucleated RBC/100 WBC (Bld) [Ratio] 0.0 /100 WBC [facility] Platelet mean volume (Bld) [Entitic vol] 10.5 fL 9.0 - 12.7 fL [facility] Platelets (Bld) [#/Vol] 408 10*3/uL High 150 - 400 k/uL [facility] RBC (Bld) [#/Vol] 4.76 10*6/uL 3.90 - 5.2 0 m/uL [facility] WBC (Bld) [#/Vol] 8.17 10*3/uL 3.70 - 11.00 k/uL [facility] Basophils (Bld) [#/Vol] 0.08 10*3/uL Normal <0.11 [facility] Comment on above: Order Comment: Speci men Type: BLOOD SPECIMENOrdering Facility: [facility] Address: [address] [address] Performed By: #### 5 7021-8 ####[facility] LABCLIA [id number] [address] [place] Basophils/100 WBC (Bld) 1.0 % Normal [facility] Comment on above: Order Comment: Speci men Type: BLOOD SPECIMENOrdering Facility: [facility] Address: [address] [place] [address] Performed By: #### 5 7021-8 ####[facility] LABCLIA [id number] [place] [address] [place] Differential cell count method Nom (Bld) Auto Normal [facility] Comment on above: Order Comment: Speci men Type: BLOOD SPECIMENOrdering Facility: [facility] Address: [address] Performed By: #### 5 7021-8 ####[facility] LABCLIA [id number] [address] [place] Eosinophils (Bld) [#/Vol] 0.19 10*3/uL Normal <0.46 [facility] Comment on above: Order Comment: Speci men Type: BLOOD SPECIMENOrdering Facility: [facility] Address: [address] [address] Performed By: #### 5 7021-8 ####[facility] LABCLIA [id number] [place] [address] [place] Eosinophils/100 WBC (Bld) 2.3 % Normal [facility] Comment on above: Order Comment: Speci men Type: BLOOD SPECIMENOrdering Facility: [facility] Address: [address] Performed By: #### 5 7021-8 ####[facility] LABCLIA [id number] [place] [address] [place] Erythrocyte distribution width (RBC) [Ratio] 15.4 % High 11.5-15.0 [facility] Comment on above: Order Comment: Speci men Type: BLOOD SPECIMENOrdering Facility: [facility] Address: [address] Performed By: #### 5 7021-8 ####[facility] LABCLIA [id number] [place] [address] [place] Hematocrit (Bld) [Volume fraction] 46.9 % High 36.0-46.0 [facility] Comment on above: Order Comment: Speci men Type: BLOOD SPECIMENOrdering Facility: [facility] Address: [address] Performed By: #### 5 7021-8 ####[facility] LABCLIA [id number] [place] [address] [place] Hemoglobin (Bld) [Mass/Vol] 14.6 g/dL Normal 11.5-15.5 [facility] Comment on above: Order Comment: Speci men Type: BLOOD SPECIMENOrdering Facility: [facility] Address: [address] [place] [address] Performed By: #### 5 7021-8 ####[facility] LABCLIA [id number] [place] [address] [place] Immature granulocytes (Bld) [#/Vol] 10*3/uL Normal <0.10 [facility] Comment on above: Order Comment: Speci men Type: BLOOD SPECIMENOrdering Facility: [facility] Address: [address] [place] [address] Performed By: #### 5 7021-8 ####[facility] LABCLIA [id number] [place] [address] [place] Immature granulocytes/100 WBC (Bld) 0.2 % Normal [facility] Comment on above: Order Comment: Speci men Type: BLOOD SPECIMENOrdering Facility: [facility] Address: [address] [place], [place] [address] Performed By: #### 5 7021-8 ####[facility] LABCLIA [id number] [place] [address] [place] Lymphocytes (Bld) [#/Vol] 2.23 10*3/uL Normal 1.00-4.00 [facility] Comment on above: Order Comment: Speci men Type: BLOOD SPECIMENOrdering Facility: [facility] Address: [address] [place], [place] [address] Performed By: #### 5 7021-8 ####[facility] LABCLIA [id number] [place] [address] [place] Lymphocytes/100 WBC (Bld) 27.3 % Normal [facility] Comment on above: Order Comment: Speci men Type: BLOOD SPECIMENOrdering Facility: [facility] Address: [address] [address] Performed By: #### 5 7021-8 ####[facility] LABIA [id number] [address] [place] MCH (RBC) [Entitic mass] 30.7 pg Normal 26.0-34.0 [facility] Comment on above: Order Comment: Speci men Type: BLOOD SPECIMENOrdering Facility: [facility] Address: [address] [address] Performed By: #### 5 7021-8 ####[facility] LABIA [id number] [address] [place] MCHC (RBC) [Mass/Vol] 31.1 g/dL Normal 30.5-36.0 [facility] Comment on above: Order Comment: Speci men Type: BLOOD SPECIMENOrdering Facility: [facility] Address: [address] Performed By: #### 5 7021-8 ####[facility] LABIA [id number] [address] [place] MCV (RBC) [Entitic vol] 98.5 fL Normal 80.0-100.0 C [facility] Comment on above: Order Comment: Speci men Type: BLOOD SPECIMENOrdering Facility: [facility] Address: [address] Performed By: #### 5 7021-8 ####[facility] [id number] [place] [address] [place] Monocytes (Bld) [#/Vol] 0.71 10*3/uL Normal <0.87 [facility] Comment on above: Order Comment: Speci men Type: BLOOD SPECIMENOrdering Facility: [facility] Address: [address] [place], [place] [address] Performed By: #### 5 7021-8 ####[facility] LABCLIA [id number] [place] [address] [place] Monocytes/100 WBC (Bld) 8.7 % Normal [facility] Comment on above: Order Comment: Speci men Type: BLOOD SPECIMENOrdering Facility: [facility] Address: [address] Performed By: #### 5 7021-8 ####[facility] LABCLIA [id number] [place] [address] [place] Neutrophils (Bld) [#/Vol] 4.94 10*3/uL Normal 1.45-7.50 [facility] Comment on above: Order Comment: Speci men Type: BLOOD SPECIMENOrdering Facility: [facility] Address: [address] Performed By: #### 5 7021-8 ####[facility] LABCLIA [id number] [place] [address] [place] Neutrophils/100 WBC (Bld) 60.5 % Normal [facility] Comment on above: Order Comment: Speci men Type: BLOOD SPECIMENOrdering Facility: [facility] Address: [address] [place], [place] [address] Performed By: #### 5 7021-8 ####[facility] [facility] LABCLIA [id number] [place] [address] [place] Nucleated RBC (Bld) [#/Vol] 10*3/uL Normal <0.01 [facility] Comment on above: Order Comment: Speci men Type: BLOOD SPECIMENOrdering Facility: [facility] Address: [address] [place] [address] Performed By: #### 5 7021-8 ####[facility] LABCLIA [id number] [place] [address] [place] Nucleated RBC/100 WBC (Bld) [Ratio] 0.0 /100 WBC Normal [facility] Comment on above: Order Comment: Speci men Type: BLOOD SPECIMENOrdering Facility: [facility] Address: [address] [place], [place] [address] Performed By: #### 5 7021-8 ####[facility] LABCLIA [id number] [place] [address] [place] Platelet mean volume (Bld) [Entitic vol] 10.5 fL Normal 9.0-12.7 [facility] Comment on above: Order Comment: Speci men Type: BLOOD SPECIMENOrdering Facility: [facility] Address: [address] [place], [place] [address] Performed By: #### 5 7021-8 ####[facility] LABCLIA [id number] [place] [address] [place] Platelets (Bld) [#/Vol] 408 10*3/uL High 150-400 [facility] Comment on above: Order Comment: Speci men Type: BLOOD SPECIMENOrdering Facility: [facility] Address: [address] [place], [place] [address] Performed By: #### 5 7021-8 ####[facility] LABCLIA [id number] [place] [address] [place] RBC (Bld) [#/Vol] 4.76 10*6/uL Normal 3.90-5.20 [facility] Comment on above: Order Comment: Speci men Type: BLOOD SPECIMENOrdering Facility: [facility] Address: [address] [place], [place] [address] Performed By: #### 5 7021-8 ####[facility] LABCLIA [id number] [place] [address] [place] WBC (Bld) [#/Vol] 8.17 10*3/uL Normal 3.70-11.00 [facility] Comment on above: Order Comment: Speci men Type: BLOOD SPECIMENOrdering Facility: [facility] Address: [address] [place] [address] Performed By: #### 5 7021-8 ####[facility] LABCLIA [id number] [place] [id number] [place] [facility] CNOVon 05-08-2023 CNOV Office Visit (INTMWS ) STEVEN KOENIG ([id number]) 1955 F Date Time Provider Department 05/08/23 12:20 PM OLY SMITH INTMWS During your visit today, we recorded the following information about you: Pulse Respiration Blood pressure Weight 90/minute 20/minute 134/88 56.2 kg Oly Smith, GIFT MANAGER.TELECOMMUNICATOR SUPERVISOR 05/08/2023 2:36 PM Signed CC: Patient presents [...] Anxiety 12/14/2015 Bipolar affective disorder, currently active ([facility]) 01/18/2016 Dr. Angie Jones, [facility] Chronic bronchitis ([facility]) 07/26/2016 Closed skull fracture ([facility]) 1994 [facility], [facility] Coronary artery disease DDD (degenerative disc disease), cervical Endometriosis 2007 Essential hypertension 12/14/2015 GERD (gastroesophageal reflux disease) 03/13/2019 History of colon polyps History of gastric ulcer 12/14/2015 HLD (hyperlipidemia) Injury of left facial nerve 1994 PAD (peripheral artery disease) ([facility]) 09/28/2019 Recurrent major depression in partial remission ([facility]) 12/14/2015 S/P drug eluting coronary [...] TOTAL FACIAL NERVE DECOMPRESSION AND/REPAIR Left 1989 [facility] ALLERGIES Patient has no known allergies. [...] 2 tablets by mouth daily at bedtime. dzngaasrtlf-rjqdzbmsh-c ilanter (TRELEGY ELLIPTA) 200-62.5-25 mcg inhalation powder [...] daily. Ap (more content not included)... Normal [facility] Comprehensive metabolic 2000 panelon 05-08-2023 Albumin [Mass/Vol] 4.2 g/dL Normal 3.9-4.9 [facility] Comment on above: Order Comment: Speci men Type: BLOOD SPECIMENOrdering Facility: [facility] Address: [address] [place] [address] Performed By: #### 2 4323-8, LIPNF ####[facility] LABCLIA [id number] [place] [address] [place] ALP [Catalytic activity/Vol] 86 U/L Normal 34-123 [facility] Comment on above: Order Comment: Speci men Type: BLOOD SPECIMENOrdering Facility: [facility] Address: [address] Performed By: #### 2 4323-8, LIPNF ####[facility] LABCLIA [id number] [place] [address] [place] ALT [Catalytic activity/Vol] 12 U/L Normal 7-38 [facility] Comment on above: Order Comment: Speci men Type: BLOOD SPECIMENOrdering Facility: [facility] Address: [address] Performed By: #### 2 4323-8, LIPNF ####[facility] LABCLIA [id number] [place] [address] [place] Anion gap [Moles/Vol] 13 mmol/L Normal 9-18 [facility] Comment on above: Order Comment: Speci men Type: BLOOD SPECIMENOrdering Facility: [facility] Address: [address] Performed By: #### 2 4323-8, LIPNF ####[facility] LABCLIA [id number] [place] [address] [place] AST [Catalytic activity/Vol] 15 U/L Normal 13-35 [facility] Comment on above: Order Comment: Speci men Type: BLOOD SPECIMENOrdering Facility: [facility] Address: [address] [place] [address] Performed By: #### 2 4323-8, LIPNF ####[facility] LABCLIA [id number] [place] [address] [place] Bilirubin [Mass/Vol] mg/dL Low 0.2-1.3 [facility] Comment on above: Order Comment: Speci men Type: BLOOD SPECIMENOrdering Facility: [facility] Address: [address] Performed By: #### 2 4323-8, LIPNF ####[facility] LABCLIA [id number] [place] [address] [place] Calcium [Mass/Vol] 9.3 mg/dL Normal 8.5-10.2 [facility] Comment on above: Order Comment: Speci men Type: BLOOD SPECIMENOrdering Facility: [facility] Address: [address] [place] [address] Performed By: #### 2 4323-8, LIPNF ####[facility] LABCLIA [id number] [place] [address] [place] Chloride [Moles/Vol] 102 mmol/L Normal 97-105 [facility] Comment on above: Order Comment: Speci men Type: BLOOD SPECIMENOrdering Facility: [facility] Address: [address] [place] [address] Performed By: #### 2 4323-8, LIPNF ####[facility] LABCLIA [id number] [place] [address] [place] CO2 [Moles/Vol] 22 mmol/L Normal 22-30 [facility] Comment on above: Order Comment: Speci men Type: BLOOD SPECIMENOrdering Facility: [facility] Address: [address] [place], [place] [address] Performed By: #### 2 4323-8, LIPNF ####[facility] LABCLIA [id number] [place] [address] [place] Creatinine [Mass/Vol] 0.97 mg/dL High 0.58-0.96 [facility] Comment on above: Order Comment: Speci men Type: BLOOD SPECIMENOrdering Facility: [facility] Address: [address] [place], [place] [address] Performed By: #### 2 4323-8, LIPNF ####[facility] LABCLIA [id number] [place] [address] [place] ESTIMATED GLOMERULAR FILTRATION RATE 64 mL/min/1.73m??? Normal >=60 [facility] Comment on above: Order Comment: [place] Type: BLOOD SPECIMENOrdering Facility: [facility] Address: [address] [place] [address] Result Comment: Johnna mated Glomerular Filtration Rate [...] GFR. Performed By: #### 2 4323-8, LIPSEGUNDO ####[facility] LABCLIA [id number] [place] [address] [place] Glucose [Mass/Vol] 76 mg/dL Normal 74-99 [facility] Comment on above: Order Comment: [place] Type: BLOOD SPECIMENOrdering Facility: [facility] Address: [address] [place] [address] Result Comment: The [place] Diabetes Association (ADA) provides guidance for cutoff [...] Standards of Medical Care in Diabetes 2016, [place] [employer] Association. Diabetes Care. 2016.39(Suppl 1). Performed By: #### 2 4323-8, JOHN ####[facility] LABCLIA [id number] [place] [address] [place] Potassium [Moles/Vol] 5.3 mmol/L High 3.7-5.1 [facility] Comment on above: Order Comment: [place] Type: BLOOD SPECIMENOrdering Facility: [facility] Address: [address] Performed By: #### 2 4323-8, LIPNF ####[facility] LABCLIA [id number] [place] [address] [place] Protein [Mass/Vol] 6.9 g/dL Normal 6.3-8.0 [facility] Comment on above: Order Comment: Speci men Type: BLOOD SPECIMENOrdering Facility: [facility] Address: [address] Performed By: #### 2 4323-8, LIPNF ####[facility] LABCLIA [id number] [place] [address] [place] Sodium [Moles/Vol] 137 mmol/L Normal 136-144 [facility] Comment on above: Order Comment: Speci men Type: BLOOD SPECIMENOrdering Facility: [facility] Address: [address] [place], [place] [address] Performed By: #### 2 4323-8, LIPNF ####[facility] LABCLIA [id number] [place] [address] [place] Urea nitrogen [Mass/Vol] 13 mg/dL Normal 7-21 [facility] Comment on above: Order Comment: Speci men Type: BLOOD SPECIMENOrdering Facility: [facility] Address: [address] Performed By: #### 2 4323-8, LIPNF ####[facility] LABCLIA [id number] [place] [address] [place] LIPID PANEL, NONFASTINGon Cholesterol [Mass/Vol] 232 mg/dL High <200 [facility] Comment on above: Order Comment: Speci men Type: BLOOD SPECIMENOrdering Facility: [facility] Address: [address] [place] [address] Result Comment: <200 mg/dL, Desirable 200-239 mg/dL, Borderline high >239 mg/dL, High Performed By: #### 2 4323-8, LIPNF ####[facility] LABCLIA [id number] [address] HDL CHOLESTEROL, NF 67 mg/dL Normal >39 [facility] Comment on above: Order Comment: Speci men Type: BLOOD SPECIMENOrdering Facility: [facility] Address: [address] [place] [address] Result Comment: 40-5 9 mg/dL, Acceptable >59 mg/dL, High: Negative risk factor for coronary heart disease <40 mg/dL, Low: Positive risk factor for coronary heart disease Performed By: #### 2 4323-8, LIPNF ####[facility] LABCLIA [id number] [address] LDL CHOLESTEROL, NF 143 mg/dL High <100 [facility] Comment on above: Order Comment: [facility] Type: BLOOD SPECIMENOrdering Facility: [facility] Address: [address] [place] [address] Result Comment: <100 mg/dL, Optimal 100-129 mg/dL, Near optimal/above optimal 130-159 mg/dL, Borderline high 160-189 mg/dL, High >189 mg/dL, Very high Secondary prevention optimal LDL Cholesterol levels are recommended to be < 70 mg/dL Performed By: #### 2 4323-8, LIPNF ####[facility] LABCLIA [id number] [address] LDL/HDL RATIO, NF 2.13 mg/dL Normal <2.54 [facility] Comment on above: Order Comment: [place] Type: BLOOD SPECIMENOrdering Facility: [facility] Address: [address] [place] [address] Result Comment: Refe rence: 1. National Cholesterol Education Program ATP III Guideline At-A-Glance Quick Desk Reference: National Heart, Lung, and Blood [place]. National Institutes of Health. 2001: NIH Publication No. 01-3305. 2. An International Atherosclerosis Society position paper: global recommendations for the management of dyslipidemia: executive summary, Atherosclerosis. 2014: 232(2):410-413. Performed By: #### 2 4323-8, LIPNF ####[facility] LABCLIA [id number] [address] [facility] NON HDL CHOL, NF 165 mg/dL High <130 [facility] Comment on above: Order Comment: Speci men Type: BLOOD SPECIMENOrdering Facility: [facility] Address: [address] [place] [address] Result Comment: <130 mg/dL, Optimal 130-159 mg/dL, Near optimal/above optimal 160-189 mg/dL, Borderline high 190-219 mg/dL, High >219 mg/dL, Very high Secondary prevention optimal non HDL Cholesterol levels are recommended to be <100 mg/dL Performed By: #### 2 4323-8, LIPNF ####[facility] LABCLIA [id number] [address] [facility] T CHOL/HDL RATIO NF 3.46 mg/dL Normal <5.10 [facility] Comment on above: Order Comment: Speci men Type: BLOOD SPECIMENOrdering Facility: [facility] Address: [address] [place] [address] Performed By: #### 2 4323-8, LIPNF ####[facility] LABCLIA [id number] [address] [place] TRIGLYCERIDES, NF 108 mg/dL Normal <150 [facility] Comment on above: Order Comment: Speci men Type: BLOOD SPECIMENOrdering Facility: [facility] Address: [address] [place] [address] Result Comment: <150 mg/dL, Normal 150-199 mg/dL, Borderline high 200-499 mg/dL, High >499 mg/dL, Very high Performed By: #### 2 4323-8, LIPNF ####[facility] LABCLIA [id number] [place] [id number] [place] [facility] VLDL CHOLESTEROL, NF 22 mg/dL Normal <30 [facility] Comment on above: Order Comment: Speci men Type: BLOOD SPECIMENOrdering Facility: [facility] Address: [address] [place] [address] Performed By: #### 2 4323-8, LIPNF ####[facility] LABCLIA [id number] [address] [facility] XR LUMBAR 3V AP/LAT/L5-S1on 05-08-2023 XR [...] spine are presented. FINDINGS: There are five bhp-chm-pkylijy lumbar vertebrae. No fracture or subluxations are noted. Right-sided curvature/dextroscolios is is noted. There is L4-5 disc space narrowing. There is mild to moderate osteophyte formation. Others: There are vascular calcifications. A right-sided iliac vascular stent is noted. IMPRESSION: Lumbar spine degenerative changes with L4-5 disc space narrowing. Environmental Associate: PSCB Transcribe Date/Time: May 10 2023 11:59A Dictated by : KARMEN MOSLEY MD This examination was interpreted and the report reviewed and electronically signed by: KARMEN MOSLEY MD on May 10 2023 12:02PM EST [id number] Normal [facility] XR Lumbar spine 3 [facility] Radiology Study observation (narrative) [facility] CNOVon 04-02-2023 CNOV Office Visit (VASSWS ) BRADENSTEVEN Nicolas ([id number]) 1955 F Date Time Provider Department 04/02/23 [...] [175] Primary Visit Diagnosis:PAD (peripheral artery disease) ([facility]) [I73.9] Order(s):PVR LEG [facility] [[id number]] Order #: [id number] FUTURE Prescriptions as of 04/02/2023 - isosorbide mononitrate ER (IMDUR) 30 mg 24 hr tablet TAKE 1 TABLET BY MOUTH EVERY DAY - predniSONE (DELTASONE) 10 mg tablet TAKE TWO DAILY FOR 5 DAYS THEN ONE DAILY FOR 10 DAYS - traZODone (DESYREL) 100 mg tablet Take 2 tablets by mouth daily at bedtime. - vieqneqtdyz-otiplxdkg-v ilanter (TRELEGY ELLIPTA) 200-62.5-25 mcg inhalation powder [...] exertion [R06.09] 08/26/2021 Coronary artery disease involving jamul tolbert*09/27/2021 Lung nodule [R91.1] 08/31/2022 History of hemoptysis [Z87.898] 11/20/2022 Encounter Status:Closed by DORON SELF on 04/02/23 Normal [facility] PVR ANK/LYONS/TOE [facility] on 04-02-2023 PVR ANK/LYONS/TOE [facility] Non-Invasive Vascular Laboratory [facility] Lower Extremity Arterial Physiology Study Bilateral/Complete [...] disease at rest. Technologist: Becky Nazario RVT, RDVA Ordering physician: DORON SELF Interpreting physician: MALINDA Vitale DO Final [employer] Medical Image : [id number] See Link below for Image Normal [facility] Basic Metabolic Panel Reflex Mgon 01-07-2023 Anion gap [Moles/Vol] 5 mmol/L Low 7-16 [facility] Calcium [Mass/Vol] 8.6 mg/dL Normal 8.6-10.2 [facility] Chloride [Moles/Vol] 95 mmol/L Low 98-107 [facility] CO2 [Moles/Vol] 32 mmol/L High 22-29 [facility] Creatinine [Mass/Vol] 0.8 mg/dL Normal 0.5-1.0 [facility] GFR Calculated >60 Normal >=60 [facility] Comment on above: Result Comment: Jimbo chongc [...] secretion. Glucose [Mass/Vol] 143 mg/dL High 74-99 [facility] Magnesium [Moles/Vol] 6.2 mmol/L High 3.5-5.0 [facility] Comment on above: Result Comment: Spec imen is moderately Hemolyzed. Result may be artificially increased. Sodium [Moles/Vol] 132 mmol/L Normal 132-146 [facility] Urea nitrogen [Mass/Vol] 26 mg/dL High 6-23 [facility] Basic Metabolic Panel w/ Ref wu to MGon 01-07-2023 Anion gap [Moles/Vol] 5 mmol/L Low 7 - 16 mmol/L [facility] Calcium [Mass/Vol] 8.6 mg/dL 8.6 - 10. 2 mg/dL [facility] Chloride [Moles/Vol] 95 mmol/L Low 98 - 10 7 mmol/L [facility] CO2 [Moles/Vol] 32 mmol/L High 22 - 29 mmol/L [facility] Creatinine [Mass/Vol] 0.8 mg/dL 0.5 - 1.0 mg/dL [facility] GFR/1.73 sq M.predicted MDRD (S/P/Bld) [Vol rate/Area] mL/min/1.73 60 - PINF mL/min/1.73 [facility] Comment on above: Pediatric calculator link [...] mg/dL High 74 - 99 mg/dL [facility] Interpretation and review of laboratory results Abnormal [facility] Potassium [Moles/Vol] 6.2 mmol/L High 3.5 - 5.0 mmol/L [facility] Comment on above: Specimen is moderate ly Hemolyzed. Result may be artificially increased. Sodium [Moles/Vol] 132 mmol/L 132 - 146 mmol/L [facility] Urea nitrogen (BldV) [Mass/Vol] 26 mg/dL High 6 - 23 mg/dL [facility] CBC With Platelet and Differ entialon 01-07-2023 Abs Imm Granulocytes 0.06 E9/L Normal [facility] Absolute Basophils 0.01 E9/L Normal 0.00-0.20 [facility] Absolute Eosinophils 0.01 E9/L Low 0.05-0.50 [facility] Absolute Lymphocytes 0.61 E9/L Low 1.50-4.00 [facility] Absolute Monocytes 0.29 E9/L Normal 0.10-0.95 [facility] Absolute Neutrophils 8.76 E9/L High 1.80-7.30 [facility] Basophils/100 WBC (Bld) 0.1 % Normal 0.0-2.0 [facility] Eosinophils/100 WBC (Bld) 0.1 % Normal 0.0-6.0 [facility] Hematocrit (Bld) [Volume fraction] 42.8 % Normal 34.0-48.0 [facility] Hemoglobin (Bld) [Mass/Vol] 13.5 g/dL Normal 11.5-15.5 [facility] Imm Granulocytes 0.6 % Normal 0.0-5.0 [facility] Lymphocytes/100 WBC (Bld) 6.3 % Low 20.0-42.0 [facility] MCH (RBC) [Entitic mass] 31.3 pg Normal 26.0-35.0 [facility] MCHC 31.5 % Low 32.0-34.5 [facility] MCV (RBC) [Entitic vol] 99.1 fL Normal 80.0-99.9 [facility] Monocytes/100 WBC (Bld) 3.0 % Normal 2.0-12.0 [facility] Neutrophils/100 WBC (Bld) 89.9 % High 43.0-80.0 [facility] Platelet Count 421 E9/L Normal 130-450 [facility] Platelet mean volume (Bld) [Entitic vol] 9.8 fL Normal 7.0-12.0 [facility] RBC 4.32 E12/L Normal 3.50-5.50 [facility] RDW 15.1 fL High 11.5-15.0 [facility] WBC 9.7 E9/L Normal 4.5-11.5 [facility] CBC with Auto Differentialon 01-07-2023 Basophils (Bld) [#/Vol] 0.01 10*3/uL [facility] Basophils/100 WBC (Bld) 0.1 % 0.0 - 2.0 % [facility] Eosinophils Absolute 0.01 Low [facility] [employer] Eosinophils/100 WBC (Bld) 0.1 % 0.0 - 6.0 % [facility] Hematocrit (Bld) [Volume fraction] 42.8 % 34.0 - 48.0 % [facility] Hemoglobin (Bld) [Mass/Vol] 13.5 g/dL 11.5 - 15.5 g/dL [facility] Immature Granulocytes # 0.06 E9/L B ON [facility] Immature granulocytes/100 WBC (Bld) 0.6 % 0.0 - 5.0 % [facility] Interpretation and review of laboratory results Abnormal [facility] Lymphocytes Absolute 0.61 Low [facility] Lymphocytes/100 WBC (Bld) 6.3 % Low 20.0 - 42.0 % [facility] MCH (RBC) [Entitic mass] 31.3 pg 26.0 - 35.0 pg [facility] MCHC (RBC) [Mass/Vol] 31.5 % Low 32.0 - 34.5 % [facility] MCV (RBC) [Entitic vol] 99.1 fL 80.0 - 99.9 fL [facility] Monocytes Absolute 0.29 [facility] Monocytes/100 WBC (Bld) 3.0 % 2.0 - 12.0 % [facility] Neutrophils Absolute 8.76 High [facility] Neutrophils/100 WBC (Bld) 89.9 % High 43.0 - 80.0 % [facility] Platelet distribution width (Bld) [Ratio] 15.1 fL High 11.5 - 15.0 fL [facility] Platelet mean volume (Bld) [Entitic vol] 9.8 fL 7.0 - 12.0 fL [facility] Platelets (Bld) [#/Vol] 421 10*3/uL [facility] RBC (Bld) [#/Vol] 4.32 10*6/uL [facility] WBC (Bld) [#/Vol] 9.7 10*3/uL [facility] Glucose Glucometer (BldC) [M ass/Vol]Ordered By: Dr. Teague on 01-07-2023 Glucose [Mass/Vol] 88 mg/dL 74-106 [facility] Comment on above: MANAGEMENT OF PATIEN T CARE PER NURSING PROTOCOL High Sensitivity Troponin To n 01-07-2023 High Sensitivity Troponin T 14 ng/L High 0-9 [facility] Comment on above: Result Comment: High Sensitivity Troponin values cannot be compared with other Troponin methodologies. Patients with high levels of Biotin oral intake (i.e. >5 mg/day) may have falsely decreased Troponin levels. Samples collected within 8 hours of biotin intake may require additional information for diagnosis. Troponinon 01-07-2023 Interpretation and review of laboratory results Abnormal [facility] Troponin, High Sensitivity 14 ng/L High 0 - 9 ng/L [facility] Comment on above: High Sensitivity Tro ponin values cannot be compared with other Troponin methodologies. Patients with high levels of Biotin oral intake (i.e. >5 mg/day) may have falsely decreased Troponin levels. Samples collected within 8 hours of biotin intake may require additional information for diagnosis. [facility] Bacteria identified Respirat ory culture Nom (Unsp spec)Ordered By: Dr. Luque on 01-06-2023 Respiratory Culture Streptococcus pneumoniae [facility] Absolute lymphocyte countOrd ered By: Dr. Luque on 01-03-2023 Lymphocytes Auto (Unsp spec) [#/Vol] 0.36 10*3/uL 0.83-4.51 [facility] Basophil percentageOrdered B y: Dr. Luque on 01-03-2023 Basophils/100 WBC (Bld) 0.6 % 0-1 [facility] Bilirubin [Mass/Vol] 0.20 mg/dL 0.20-1.00 [facility] Comment on above: For patients on eltr ombopag therapy, use of Dimension [place] TBIL is not recommended. Chloride [Moles/Vol] 112 mmol/L 98-107 [facility] Cholesterol [Mass/Vol] 225 mg/dL <200 [facility] Comment on above: <200 mg/dL Desirable 200-240 mg/dL Borderline >240 mg/dL High Risk Eosinophils/100 WBC (Bld) 0.0 % 0-5 [facility] Glucose [Mass/Vol] 236 mg/dL 74-106 [facility] Comment on above: Glucose result great er than or equal to 200 mg/dLsuggests DIABETES MELLITUS per A.D.A. criteria. Neutrophils (Bld) [#/Vol] 6.2 10*3/uL 2.0-7.7 [facility] Neutrophils/100 WBC (Bld) 92.4 % 47-70 [facility] Potassium [Moles/Vol] 4.3 mmol/L 3.5-5.1 [facility] Protein [Mass/Vol] 6.5 g/dL 6.4-8.2 [facility] Sodium [Moles/Vol] 141 mmol/L 136-145 [facility] Triglyceride [Mass/Vol] 63 mg/dL <199 [facility] Comment on above: The drugs N-Acetylcy steine and Metamizole may falsely depress this assay.Serum Triglycerides Reference Interval Normal <150 mg/dL Borderline high 150 - 199 mg/dL High 200 - 499 mg/dL Very High > or = 500 mg/dL WBC (Bld) [#/Vol] 6.7 10*3/uL 4.4-11.0 [facility] Blood erythrocytes count (nu mber/volume)Ordered By: Dr. Luque on 01-03-2023 RBC (Bld) [#/Vol] 4.25 10*6/uL 4.2-5.4 [facility] Blood hemoglobin measurement (mass/volume)Ordered By: Dr. Luque on 01-03-2023 Hemoglobin (Bld) [Mass/Vol] 13.4 g/dL 12.0-15.0 [facility] Blood lymphocytes/100 leukoc ytesOrdered By: Dr. Luque on 01-03-2023 Lymphocytes/100 WBC (Bld) 5.4 % 19-41 [facility] Blood manual differential co mment interpretation (narrative result)Ordered By: Dr. Luque on 01-03-2023 Manual differential comment Marquez (Bld) [Interp] SCANNED [facility] Blood monocytes/100 leukocyt esOrdered By: Dr. Luque on 01-03-2023 Monocytes/100 WBC (Bld) 0.9 % 0-10 [facility] Blood platelet mean volumeOr dered By: Dr. Luque on 01-03-2023 Platelet mean volume (Bld) [Entitic vol] 9.4 fL 6.2-12.0 [facility] Determination of erythrocyte mean corpuscular volume (MCV)Ordered By: Dr. Luque on 01-03-2023 MCV (RBC) [Entitic vol] 99.1 fL 81-99 [facility] Gram stain for investigation of transfusion reactionOrdered By: Dr. Luque on 01-03-2023 Microscopic observation Gram stain Nom (Unsp spec) [facility] Hematocrit Auto (Bld) [Volum e fraction]Ordered By: Dr. Luque on 01-03-2023 Hematocrit (Bld) [Volume fraction] 42.1 % 37-47 [facility] Laboratory - Chemistry and C hemistry - challengeOrdered By: Dr. Luque on 01-03-2023 ALP [Catalytic activity/Vol] 59 U/L 45-117 [facility] ALT [Catalytic activity/Vol] 19 U/L 13-56 [facility] CO2 [Moles/Vol] 25.0 mmol/L 21.0-32.0 [facility] Globulin (S) [Mass/Vol] 3.5 g/dL 2.2-4.2 [facility] Urea nitrogen/Creatinine [Mass ratio] 12.5 mg/mg 10-20 [facility] Laboratory - Hematology and Cell countsOrdered By: Dr. Luque on 01-03-2023 Erythrocyte distribution width (RBC) [Entitic vol] 57.1 fL 35.1-43.9 [facility] Erythrocyte distribution width (RBC) [Ratio] 15.7 % 11.6-14.6 [facility] Immature granulocytes/100 WBC (Bld) 0.700 % 0.0-0.9 [facility] Comment on above: IG% - Immature Granu locytes (promyelocytes, myelocytes and metamyelocytes) > 1% indicates that a LEFT SHIFT is Present. MCH (RBC) [Entitic mass] 31.5 pg 27.0-32.0 [facility] Nucleated RBC/100 WBC (Bld) [Ratio] 0 % 0-5 [facility] MCHC Auto (RBC) [Mass/Vol]Or dered By: Dr. Luque on 01-03-2023 MCHC (RBC) [Mass/Vol] 31.8 g/dL 32-36 [facility] No Panel InformationOrdered By: Dr. Luque on 01-03-2023 Estimated Creatinine Clearance Calc 61.40 ml/min [facility] Estimated GFR (MDRD) Amer 92 mL/min >60 [facility] Comment on above: GFR Calc Estimated GFR (MDRD) Non-Af Amer 76 mL/min >60 [facility] Comment on above: Non- GFR Calc Troponin I High Sensitivity 17 pg/mL 3.0-54.0 [facility] Comment on above: Please Note: New Elsa t Units and Gender Specific Reference Ranges. For more information see Policy Stat Procedure [place] High Sensitivity Troponin (TNIH) and attachments. Platelets bldOrdered By: Dr. Luque on 01-03-2023 Platelets (Bld) [#/Vol] 416 10*3/uL 150-450 [facility] Serum or plasma albumin giovanni urement (mass/volume)Ordered By: Dr. Luque on 01-03-2023 Albumin [Mass/Vol] 3.0 g/dL 3.2-5.0 [facility] Serum or plasma albumin/glob ulin mass ratioOrdered By: Dr. Luque on 01-03-2023 Albumin/Globulin [Mass ratio] 0.9 {ratio} 0.9-2.4 [facility] Serum or plasma calcium giovanni urement (mass/volume)Ordered By: Dr. Luque on 01-03-2023 Calcium [Mass/Vol] 8.1 mg/dL 8.5-10.1 [facility] Serum or plasma cholesterol in HDL measurement (mass/volume)Ordered By: Dr. Luque on 01-03-2023 Cholesterol in HDL [Mass/Vol] 98 mg/dL >40 [facility] Comment on above: The drugs N-Acetylcy steine and Metamizole may falsely depress this assay. Reference Range HDL <40 mg/dL Low HDL Cholesterol HDL >or= 60 mg/dL High HDL Cholesterol Serum or plasma cholesterol in VLDL measurement (mass/volume)Ordered By: Dr. Luque on 01-03-2023 Cholesterol in VLDL [Mass/Vol] 13 mg/dL 5-40 [facility] Serum or plasma creatinine m easurement (mass/volume)Ordered By: Dr. Luque on 01-03-2023 Creatinine [Mass/Vol] 0.80 mg/dL 0.55-1.02 [facility] Comment on above: The validity of the calculated GFR & GFRAA in patients over 70 years has not been determined. Clinical correlation is essential. Serum or plasma low density lipoprotein (LDL) cholesterol measurement (mass/volume)Ordered By: Dr. Luque on 01-03-2023 Cholesterol in LDL [Mass/Vol] 114 mg/dL 0-130 [facility] Serum or plasma urea nitroge n measurement (mass/volume)Ordered By: Dr. Luque on 01-03-2023 Urea nitrogen [Mass/Vol] 10 mg/dL 7-18 [facility] Thin prep Papanicolaou smear with manual screeningOrdered By: Dr. Luque on 01-03-2023 Thin prep Papanicolaou smear with manual screening 14 U/L 15-37 [facility] Thin prep Papanicolaou smear with manual screening 4 5-15 [facility] Whole blood hemoglobin A1c/t otal hemoglobin ratio (mass fraction)Ordered By: Dr. Sauer on 01-03-2023 HbA1c (Bld) [Mass fraction] 5.5 % 3.8-5.6 [facility] Comment on above: Normal < 5.7 % Predi abetic 5.7 - 6.4 % Diabetic >or= 6.5 % Please note range changes. Absolute lymphocyte countOrd ered By: Dr. Koroma on 01-02-2023 Lymphocytes Auto (Unsp spec) [#/Vol] 2.67 10*3/uL 0.83-4.51 [facility] Basophil percentageOrdered B y: Dr. Luque on 01-02-2023 Basophil percentage 3.6 mg/dL 2.5-4.9 [facility] Basophil percentageOrdered B y: Dr. Koroma on 01-02-2023 Basophils/100 WBC (Bld) 1.3 % 0-1 [facility] Bilirubin [Mass/Vol] 0.10 mg/dL 0.20-1.00 [facility] Comment on above: For patients on eltr ombopag therapy, use of Dimension [place] TBIL is not recommended. Chloride [Moles/Vol] 109 mmol/L 98-107 [facility] Eosinophils/100 WBC (Bld) 1.4 % 0-5 [facility] Glucose [Mass/Vol] 76 mg/dL 74-106 [facility] Neutrophils (Bld) [#/Vol] 3.6 10*3/uL 2.0-7.7 [facility] Neutrophils/100 WBC (Bld) 50.1 % 47-70 [facility] Potassium [Moles/Vol] 3.6 mmol/L 3.5-5.1 [facility] Protein [Mass/Vol] 7.3 g/dL 6.4-8.2 [facility] Sodium [Moles/Vol] 143 mmol/L 136-145 [facility] WBC (Bld) [#/Vol] 7.2 10*3/uL 4.4-11.0 [facility] Basophil percentage 0 SEEN /hpf 0-5 [facility] Bilirubin Test strip Ql (U)O rdered By: Dr. Koroma on 01-02-2023 Bilirubin Ql (U) Negative Negative [facility] Blood erythrocytes count (nu mber/volume)Ordered By: Dr. Koroma on 01-02-2023 RBC (Bld) [#/Vol] 4.42 10*6/uL 4.2-5.4 [facility] Blood hemoglobin measurement (mass/volume)Ordered By: Dr. Koroma on 01-02-2023 Hemoglobin (Bld) [Mass/Vol] 14.0 g/dL 12.0-15.0 [facility] Blood lymphocytes/100 leukoc ytesOrdered By: Dr. Koroma on 01-02-2023 Lymphocytes/100 WBC (Bld) 37.2 % 19-41 [facility] Blood monocytes/100 leukocyt esOrdered By: Dr. Koroma on 01-02-2023 Monocytes/100 WBC (Bld) 9.6 % 0-10 [facility] Blood platelet mean volumeOr dered By: Dr. Koroma on 01-02-2023 Platelet mean volume (Bld) [Entitic vol] 9.8 fL 6.2-12.0 [facility] Determination of erythrocyte mean corpuscular volume (MCV)Ordered By: Dr. Koroma on 01-02-2023 MCV (RBC) [Entitic vol] 99.3 fL 81-99 [facility] Hematocrit Auto (Bld) [Volum e fraction]Ordered By: Dr. Koroma on 01-02-2023 Hematocrit (Bld) [Volume fraction] 43.9 % 37-47 [facility] Ketones Test strip Ql (U)Ord ered By: Dr. Koroma on 01-02-2023 Ketones Ql (U) Negative Negative [facility] Laboratory - Chemistry and C hemistry - challengeOrdered By: Dr. Luque on 01-02-2023 Magnesium [Mass/Vol] 2.0 mg/dL 1.6-2.6 [facility] Laboratory - Chemistry and C hemistry - challengeOrdered By: Dr. Koroma on 01-02-2023 ALP [Catalytic activity/Vol] 63 U/L 45-117 [facility] ALT [Catalytic activity/Vol] 24 U/L 13-56 [facility] CO2 [Moles/Vol] 27.0 mmol/L 21.0-32.0 [facility] Globulin (S) [Mass/Vol] 3.9 g/dL 2.2-4.2 [facility] Lipase [Catalytic activity/Vol] 235 U/L 73-393 [facility] Urea nitrogen/Creatinine [Mass ratio] 13.7 mg/mg 10-20 [facility] Laboratory - Drug toxicology Ordered By: Dr. Koroma on 01-02-2023 Amphetamines Ql (U) Negative <1000 ng/mL [facility] Benzodiazepines Ql (U) Negative < 200 ng/mL [facility] Cannabinoids Screen Ql (U) Negative < 50 ng/mL [facility] Cocaine Ql (U) Negative < 300 ng/mL [facility] Opiates Ql (U) Negative < 300 ng/mL [facility] Laboratory - Hematology and Cell countsOrdered By: Dr. Koroma on 01-02-2023 Erythrocyte distribution width (RBC) [Entitic vol] 56.6 fL 35.1-43.9 [facility] Erythrocyte distribution width (RBC) [Ratio] 15.6 % 11.6-14.6 [facility] Immature granulocytes/100 WBC (Bld) 0.400 % 0.0-0.9 [facility] Comment on above: IG% - Immature Granu locytes (promyelocytes, myelocytes and metamyelocytes) > 1% indicates that a LEFT SHIFT is Present. MCH (RBC) [Entitic mass] 31.7 pg 27.0-32.0 [facility] Nucleated RBC/100 WBC (Bld) [Ratio] 0 % 0[facility]5 [facility] [Mass/Vol]Or dered By: Dr. Koroma on 01-02-2023 MCHC (RBC) [Mass/Vol] 31.9 g/dL 32-36 [facility] Mucus LM Ql (Urine sed)Order ed By: Dr. Koroma on 01-02-2023 Mucus Ql (Urine sed) 0 SEEN /hpf [facility] Nitrite Test strip Ql (U)Ord ered By: Dr. Koroma on 01-02-2023 Nitrite Ql (U) Negative Negative [facility] No Panel InformationOrdered By: Dr. Koroma on 01-02-2023 Estimated Creatinine Clearance Calc 61.40 ml/min [facility] Estimated GFR (MDRD) Amer 91 mL/min >60 [facility] Comment on above: GFR Calc Estimated GFR (MDRD) Non-Af Amer 76 mL/min >60 [facility] Comment on above: Non- GFR Calc Ethyl Alcohol Level 112.0 mg/dL [facility] Comment on above: The serum:whole bloo d ethanol ratio is approximately 1.14and varies slightly with hematocrit. Medical Alcohol reference interval and critical value innon-tolerant individuals; 50 - 100 Impairment 100 Intoxication 100 - 250 Severe Poisoning 250 - 400 Deep/possible fatal coma Troponin I High Sensitivity 17 pg/mL 3.0-54.0 [facility] Comment on above: Please Note: New Elsa t Units and Gender Specific Reference Ranges. For more information see Policy Stat Procedure [place] High Sensitivity Troponin (TNIH) and attachments. MDMA (Ecstasy) Screen Negative < 500 ng/mL [facility] Urine Barbiturates Screen Negative < 200 ng/mL [facility] Urine Drug Screen Comment [facility] Comment on above: CONFIRMATORY TESTING FOR [...] Methadone Screen Negative < 300 ng/mL [facility] Platelets bldOrdered By: Dr. Koroma on 01-02-2023 Platelets (Bld) [#/Vol] 478 10*3/uL 150-450 [facility] Protein Test strip Ql (U)Ord ered By: Dr. Koroma on 01-02-2023 Protein Ql (U) Negative Negative [facility] Serum or plasma albumin giovanni urement (mass/volume)Ordered By: Dr. Koroma on 01-02-2023 Albumin [Mass/Vol] 3.4 g/dL 3.2-5.0 [facility] Serum or plasma albumin/glob ulin mass ratioOrdered By: Dr. Koroma on 01-02-2023 Albumin/Globulin [Mass ratio] 0.9 {ratio} 0.9-2.4 [facility] Serum or plasma calcium giovanni urement (mass/volume)Ordered By: Dr. Koroma on 01-02-2023 Calcium [Mass/Vol] 8.5 mg/dL 8.5-10.1 [facility] Serum or plasma creatinine m easurement (mass/volume)Ordered By: Dr. Koroma on 01-02-2023 Creatinine [Mass/Vol] 0.80 mg/dL 0.55-1.02 [facility] Comment on above: The validity of the calculated GFR & GFRAA in patients over 70 years has not been determined. Clinical correlation is essential. Serum or plasma urea nitroge n measurement (mass/volume)Ordered By: Dr. Koroma on 01-02-2023 Urea nitrogen [Mass/Vol] 11 mg/dL 7-18 [facility] Serum procalcitonin measurem entOrdered By: Dr. Luque on 01-02-2023 Procalcitonin [Mass/Vol] ng/mL 0.00-0.09 [facility] Comment on above: A procalcitonin (PCT [...] Ql (Urine sed) 0-5 SEEN /hpf 5-10 [facility] Thin prep Papanicolaou smear with manual screeningOrdered By: Dr. Koroma on 01-02-2023 Thin prep Papanicolaou smear with manual screening 17 U/L 15-37 [facility] Thin prep Papanicolaou smear with manual screening 7 5-15 [facility] Urine blood detectionOrdered By: Dr. Koroma on 01-02-2023 RBC Ql (U) Negative Negative [facility] RBC Ql (U) 0 SEEN /hpf 0-5 [facility] Urine clarityOrdered By: Dr. Koroma on 01-02-2023 Clarity (U) Clear Clear [facility] Urine color determinationOrd ered By: Dr. Koroma on 01-02-2023 Color (U) Yellow Yellow [facility] Urine glucose detectionOrder ed By: Dr. Koroma on 01-02-2023 Glucose Ql (U) Normal mg/dl Normal [facility] Urine leukocyte esterase det ection by dipstickOrdered By: Dr. Koroma on 01-02-2023 Leukocyte esterase Test strip Ql (U) Negative Negative [facility] Urine pHOrdered By: Dr. Haider mark on 01-02-2023 pH (U) 6.0 [pH] 5.0 - 8.0 [facility] Urine phencyclidine (PCP) de tectionOrdered By: Dr. Koroma on 01-02-2023 Phencyclidine Ql (U) Negative < 25 ng/mL [facility] Urine sediment bacteria coun t by microscopy (number/high power field)Ordered By: Dr. Koroma on 01-02-2023 Bacteria LM.HPF (Urine sed) [#/Area] 0 /[HPF] None Seen [facility] Urine specific gravity measu rementOrdered By: Dr. Koroma on 01-02-2023 Specific gravity (U) [Rel density] 1.005 1.002-1.030 [facility] Urobilinogen Auto test strip Ql (U)Ordered By: Dr. Koroma on 01-02-2023 Urobilinogen Ql (U) Normal mg/dl Normal [facility] A1AT SerPl-mCncon 01-01-2023 Alpha 1 antitrypsin [Mass/Vol] 192 mg/dL Normal 90-200 [facility] Comment on above: Order Comment: Speci men Type: BLOOD SPECIMENOrdering Facility: [facility] Address: [address] [place] [address] Performed By: #### 1 825-9 ####[facility] LABIA [id number] [place] [address] [place] CBC W Auto Differential pane l (Bld)on 01-01-2023 Basophils (Bld) [#/Vol] 0.07 10*3/uL Normal <0.11 [facility] Comment on above: Order Comment: Speci men Type: BLOOD SPECIMENOrdering Facility: [facility] Address: [address] [place] [address] Performed By: #### 5 7021-8 ####[facility]IA [id number] [place] [address] [place] Basophils/100 WBC (Bld) 1.0 % Normal [facility] Comment on above: Order Comment: Speci men Type: BLOOD SPECIMENOrdering Facility: [facility] Address: [address] [place] [address] Performed By: #### 5 7021-8 ####[facility]IA [id number] [place] [address] [place] Differential cell count method Nom (Bld) Auto Normal [facility] Comment on above: Order Comment: Speci men Type: BLOOD SPECIMENOrdering Facility: [facility] Address: [address] [place], [place] [address] Performed By: #### 5 7021-8 ####[facility] LABCLIA [id number] [place] [address] [place] Eosinophils (Bld) [#/Vol] 0.07 10*3/uL Normal <0.46 [facility] Comment on above: Order Comment: Speci men Type: BLOOD SPECIMENOrdering Facility: [facility] Address: [address] [place], [place] [address] Performed By: #### 5 7021-8 ####[facility] LABCLIA [id number] [address] [place] Eosinophils/100 WBC (Bld) 1.0 % Normal [facility] Comment on above: Order Comment: Speci men Type: BLOOD SPECIMENOrdering Facility: [facility] Address: [address] [place], [place] [address] Performed By: #### 5 7021-8 ####[facility] LABCLIA [id number] [address] [place] Erythrocyte distribution width (RBC) [Ratio] 15.8 % High 11.5-15.0 [facility] Comment on above: Order Comment: Speci men Type: BLOOD SPECIMENOrdering Facility: [facility] Address: [address] [place] [address] Performed By: #### 5 7021-8 ####[facility]IA [id number] [place] [address] [place] Hematocrit (Bld) [Volume fraction] 44.4 % Normal 36.0-46.0 [facility] Comment on above: Order Comment: Speci men Type: BLOOD SPECIMENOrdering Facility: [facility] Address: [address] [place], [place] [address] Performed By: #### 5 7021-8 ####[facility] LABCLIA [id number] [place] [address] [place] Hemoglobin (Bld) [Mass/Vol] 14.1 g/dL Normal 11.5-15.5 [facility] Comment on above: Order Comment: Speci men Type: BLOOD SPECIMENOrdering Facility: [facility] Address: [address] Performed By: #### 5 7021-8 ####[facility] LABCLIA [id number] [place] [address] [place] Immature granulocytes (Bld) [#/Vol] 10*3/uL Normal <0.10 [facility] Comment on above: Order Comment: Speci men Type: BLOOD SPECIMENOrdering Facility: [facility] Address: [address] [place], [place] [address] Performed By: #### 5 7021-8 ####[facility]IA [id number] [place] [address] [place] Immature granulocytes/100 WBC (Bld) 0.3 % Normal [facility] Comment on above: Order Comment: Speci men Type: BLOOD SPECIMENOrdering Facility: [facility] Address: [address] [place], [place] [address] Performed By: #### 5 7021-8 ####[facility] LABCLIA [id number] [place] [address] [place] Lymphocytes (Bld) [#/Vol] 1.67 10*3/uL Normal 1.00-4.00 [facility] Comment on above: Order Comment: Speci men Type: BLOOD SPECIMENOrdering Facility: [facility] Address: [address] [place], [place] [address] Performed By: #### 5 7021-8 ####[facility] LABCLIA [id number] [address] [place] Lymphocytes/100 WBC (Bld) 23.3 % Normal [facility] Comment on above: Order Comment: Speci men Type: BLOOD SPECIMENOrdering Facility: [facility] Address: [address] [place] [address] Performed By: #### 5 7021-8 ####[facility]IA [id number] [address] [place] MCH (RBC) [Entitic mass] 32.0 pg Normal 26.0-34.0 [facility] Comment on above: Order Comment: Speci men Type: BLOOD SPECIMENOrdering Facility: [facility] Address: [address] [place] [address] Performed By: #### 5 7021-8 ####[facility]IA [id number] [address] [place] MCHC (RBC) [Mass/Vol] 31.8 g/dL Normal 30.5-36.0 [facility] Comment on above: Order Comment: Speci men Type: BLOOD SPECIMENOrdering Facility: [facility] Address: [address] [place], [place] [address] Performed By: #### 5 7021-8 ####[facility]IA [id number] [address] [place] MCV (RBC) [Entitic vol] 100.9 fL High 80.0-100.0 C [facility] Comment on above: Order Comment: Speci men Type: BLOOD SPECIMENOrdering Facility: [facility] Address: [address] [place], [place] [address] Performed By: #### 5 7021-8 ####[facility]IA [id number] [address] [place] Monocytes (Bld) [#/Vol] 0.91 10*3/uL High <0.87 [facility] Comment on above: Order Comment: Speci men Type: BLOOD SPECIMENOrdering Facility: [facility] Address: [address] Performed By: #### 5 7021-8 ####[facility] LABCLIA [id number] [address] [place] Monocytes/100 WBC (Bld) 12.7 % Normal [facility] Comment on above: Order Comment: Speci men Type: BLOOD SPECIMENOrdering Facility: [facility] Address: [address] Performed By: #### 5 7021-8 ####[facility] LABCLIA [id number] [place] [address] [place] Neutrophils (Bld) [#/Vol] 4.44 10*3/uL Normal 1.45-7.50 [facility] Comment on above: Order Comment: Speci men Type: BLOOD SPECIMENOrdering Facility: [facility] Address: [address] Performed By: #### 5 7021-8 ####[facility] LABCLIA [id number] [address] [place] [facility] Neutrophils/100 WBC (Bld) 61.7 % Normal [facility] Comment on above: Order Comment: Speci men Type: BLOOD SPECIMENOrdering Facility: [facility] Address: [address] Performed By: #### 5 7021-8 ####[facility] LABCLIA [id number] [place] [address] [place] Nucleated RBC (Bld) [#/Vol] 10*3/uL Normal <0.01 [facility] Comment on above: Order Comment: Speci men Type: BLOOD SPECIMENOrdering Facility: [facility] Address: [address] Performed By: #### 5 7021-8 ####[facility] LABCLIA [id number] [place] [address] [place] Nucleated RBC/100 WBC (Bld) [Ratio] 0.0 /100 WBC Normal [facility] Comment on above: Order Comment: Speci men Type: BLOOD SPECIMENOrdering Facility: [facility] Address: [address] [place] [address] Performed By: #### 5 7021-8 ####[facility]IA [id number] [place] [address] [place] Platelet mean volume (Bld) [Entitic vol] 10.1 fL Normal 9.0-12.7 [facility] Comment on above: Order Comment: Speci men Type: BLOOD SPECIMENOrdering Facility: [facility] Address: [address] [place] [address] Performed By: #### 5 7021-8 ####[facility] [id number] [place] [address] [place] Platelets (Bld) [#/Vol] 439 10*3/uL High 150-400 [facility] Comment on above: Order Comment: Speci men Type: BLOOD SPECIMENOrdering Facility: [facility] Address: [address] [place], [place] [address] Performed By: #### 5 7021-8 ####[facility]IA [id number] [place] [address] [place] RBC (Bld) [#/Vol] 4.40 10*6/uL Normal 3.90-5.20 [facility] Comment on above: Order Comment: Speci men Type: BLOOD SPECIMENOrdering Facility: [facility] Address: [address] [place], [place] [address] Performed By: #### 5 7021-8 ####[facility]IA [id number] [place] [address] [place] WBC (Bld) [#/Vol] 7.18 10*3/uL Normal 3.70-11.00 [facility] Comment on above: Order Comment: Speci men Type: BLOOD SPECIMENOrdering Facility: [facility] Address: [address] [place] [address] Performed By: #### 5 7021-8 ####[facility] LABCLIA [id number] [id number] [id number] [facility] CNOVon 01-01-2023 CNOV Office Visit (INTMWS ) STEVEN KOENIG ([id number]) 1955 F Date Time Provider Department 01/01/23 2:00 PM OLY SMITH INTMWS During your visit today, we recorded the following information about you: Pulse Respiration Blood pressure Weight 85/minute 22/minute 170/83 58.1 kg Oly Smith APRN.TELECOMMUNICATOR SUPERVISOR 01/01/2023 3:27 PM Addendum CC: Patient presents [...] Alcohol use disorder 01/18/2016 Dr. Angie Jones, [facility] Anxiety 12/14/2015 Bipolar affective disorder, currently active ([facility]) 01/18/2016 Dr. Angie Jones, [facility] Chronic bronchitis ([facility]) 07/26/2016 Closed skull fracture ([facility]) 1994 [facility], [facility] Coronary artery disease DDD (degenerative disc disease), cervical Endometriosis 2007 Essential hypertension 12/14/2015 GERD (gastroesophageal reflux disease) 03/13/2019 History of colon polyps History of gastric ulcer 12/14/2015 HLD (hyperlipidemia) Injury of left facial nerve 1994 PAD (peripheral artery disease) ([facility]) 09/28/2019 Recurrent major depression in partial remission ([facility]) 12/14/2015 S/P drug eluting coronary [...] TOTAL FACIAL NERVE DECOMPRESSION AND/REPAIR Left 1989 [facility] ALLERGIES Patient has no known allergies. MEDICATIONS traZODone (DESYREL) 100 mg tablet Take 2 tablets by mouth daily at bedtime. haosbvnrzud-yclpkdxmt-w ilanter (TRELEGY ELLIPTA) 200-62.5-25 mcg inhalation powder [...] 1 tabl (more content not included)... Normal [facility] Frank 01-01-2023 [facility] STEVEN KOENIG ([id number]) 1955 F Date Time Provider Department 01/01/23 [facility] PENA [facility] During your visit today, we recorded the following information about you: GIO Cardona 01/01/2023 3:55 PM Signed Behavioral Health Social Work Progress Note Patient identified for [facility] from: PCP Reason for referral: Resources Behavioral Health Resources: Substance abuse [facility] encounter type: Telephone Encounter Attempts to Outreach: 1 attempt Referral made: Psychology - External Psychology-External referral type: Alcohol/Drug Treatment Reason for external referral: Patient seeking care home support, Patient needs services closer to [...] look into for detoxification and substance abuse: [facility] [address] [place] [address] [phone] [facility] [address] [place] [address] [phone] Patient states she may end up just going to [facility] if she can't find anywhere to go to assist as she really needs to detox. Advised to call these numbers and if additional assistance is needed to inform this SW. GIO Cardona January 01, 2023 Allergies As of Date: 01/01/2023 (No Known Allergies) Date Reviewed: 01/01/2023 Reviewed by: Oly Smith APRN.TELECOMMUNICATOR SUPERVISOR - Fully Assessed Reason for Visit: Behavioral Health Social Work [Other] Prescriptions as of 01/01/2023 - traZODone (DESYREL) 100 mg tablet Take 2 tablets by mouth daily at bedtime. - wvcaclefjvx-mjcerpygy-h ilanter (TRELEGY ELLIPTA) 200-62.5-25 mcg inhalation powder [...] [I73.9] 09/28/2019 (more content not included)... Normal [facility] XR CHEST 2V FRONTAL/LATon XR CHEST [...] tissues: Unremarkable. IMPRESSION: No acute radiographic abnormality. Environmental Associate: PSCB Transcribe Date/Time: Jan 01 2023 3:22P Dictated by : HUBER VILA MD This examination was interpreted and the report reviewed and electronically signed by: HUBER VILA MD on Jan 01 2023 3:23PM EST [id number] Normal [facility] XR Chest PA and Lateralon IMPRESSION: No acute radiographic abnormality. Environmental Associate: SRAVANI Transcribe Date/Time: Jan 01 2023 3:22P Dictated by : HUBER VILA MD This examination was interpreted and the report reviewed and electronically signed by: HUBER VILA MD on Jan 01 2023 3:23PM [facility] DIVISION OF RADIOLOGY * * *Final [...] soft tissues: Unremarkable. DIVISION OF RADIOLOGY Provider, [facility] - 01/01/2023 * * *Final Report* * [...] Unremarkable. IMPRESSION IMPRESSION: No acute radiographic abnormality. Environmental Associate: SRAVANI Transcribe Date/Time: Jan 01 2023 3:22P Dictated by : HUBER VILA MD This examination was interpreted and the report reviewed and electronically signed by: HUBER VILA MD on Jan 01 2023 3:23PM [facility] Radiology Study observation (narrative) [facility] X[facility] Chest PA and LateralOrder ed By: Ccf Provider on 01-01-2023 [facility] .Auto Diffon 12-23-2022 Basophil, Absolute 0.1 10 3/mcL Normal 0.0-0.2 [facility], [facility] ([place] Comment on above: Performed By: #### T ROPHS, GFR, CMP, PBNP #### [address] [address] Basophils/100 WBC (Bld) 1.5 % Normal 0.0-2.5 [facility] ([place]) Comment on above: Performed By: #### T ROPHS, GFR, CMP, PBNP #### [address] [address] Eosinophil, Absolute 0.1 10 3/mcL Normal 0.0-0.4 [facility] ([place]) Comment on above: Performed By: #### T ROPHS, GFR, CMP, PBNP #### [address] [address] Eosinophils/100 WBC (Bld) 1.1 % Normal 0.0-7.0 [facility] ([place]) Comment on above: Performed By: #### T ROPHS, GFR, CMP, PBNP #### [address] [address] Lymphocyte, Absolute 2.0 10 3/mcL Normal 0.8-3.9 [facility] ([place]) Comment on above: Performed By: #### T ROPHS, GFR, CMP, PBNP #### [address] [address] Lymphocytes/100 WBC (Bld) 36.4 % Normal 10.0-50.0 [facility] ([place]) Comment on above: Performed By: #### T ROPHS, GFR, CMP, PBNP #### [address] [address] Monocyte, Absolute 0.5 10 3/mcL Normal 0.2-1.0 [facility], [facility] ([place] Comment on above: Performed By: #### T ROPHS, GFR, CMP, PBNP #### [address] [address] Monocytes/100 WBC (Bld) 9.3 % Normal 1.7-13.0 [facility] ([place]) Comment on above: Performed By: #### T GOMEZ, GFR, CMP, PBNP #### [address] [address] Neutrophils/100 WBC (Bld) 51.7 % Normal 37.0-80.0 [facility] ([place]) Comment on above: Performed By: #### T GOMEZ, GFR, CMP, PBNP #### [address] [address] .GFRon 12-23-2022 GFR 100 ml/min/1.73sqm Normal [facility] ([place]) Comment on above: Result Comment: [...] #### T GOMEZ, GFR, CMP, PBNP #### [address] [address] GFR Non- 82 ml/min/1.73sqm Normal [facility] ([place]) Comment on above: Result Comment: [...] #### T GOMEZ, GFR, CMP, PBNP #### [address] [address] .MDWon 12-23-2022 Monocyte Distribution Width 18.17 Normal 0.00-20.00 [facility] ([place]) Comment on above: Result Comment: For ED adult patients suspected of sepsis, MDW<=20.0 does not rule out sepsis or risk of sepsis Performed By: #### T GOMEZ, GFR, CMP, PBNP #### [address] [address] .NEUABSon 12-23-2022 Neutrophil, Absolute 2.8 10 3/mcL Low 2.9-6.2 [facility] ([place]) Comment on above: Performed By: #### T GOMEZ, GFR, CMP, PBNP #### [address] [address] BMPon 12-23-2022 BUN/Creatinine Ratio 6 ratio Low 7-27 [facility] ([place] Comment on above: Performed By: #### T GOMEZ, GFR, CMP, PBNP #### [address] [address] Calcium [Mass/Vol] 8.1 mg/dL Low 8.4-10.2 [facility] ([place]) Comment on above: Performed By: #### T GOMEZ, GFR, CMP, PBNP #### [address] [address] Chloride [Moles/Vol] 102 mmol/L Normal 98-107 [facility] ([place] Comment on above: Performed By: #### T GOMEZ, GFR, CMP, PBNP #### [address] [address] CO2 [Moles/Vol] 30 mmol/L Normal 23-31 [facility] ([place]) Comment on above: Performed By: #### T ROPHS, GFR, CMP, PBNP #### [address] [address] Creatinine [Mass/Vol] 0.71 mg/dL Normal 0.55-1.02 [facility] ([place]) Comment on above: Performed By: #### T ROPHS, GFR, CMP, PBNP #### [address] [address] Electrolyte Balance 7.0 mEq/L Normal 4.0-15.0 [facility] ([place]) Comment on above: Performed By: #### T ROPHS, GFR, CMP, PBNP #### [address] [address] Glucose [Mass/Vol] 88 mg/dL Normal 80-115 [facility] ([place]) Comment on above: Performed By: #### T ROPHS, GFR, CMP, PBNP #### [address] [address] Potassium [Moles/Vol] 4.1 mmol/L Normal 3.5-5.1 [facility] ([place]) Comment on above: Performed By: #### T ROPHS, GFR, CMP, PBNP #### [address] [address] Sodium [Moles/Vol] 139 mmol/L Normal 136-145 [facility] ([place]) Comment on above: Performed By: #### T ROPHS, GFR, CMP, PBNP #### [address] [address] Urea nitrogen [Mass/Vol] 4 mg/dL Low 7-18 [facility] ([place] Comment on above: Performed By: #### T ROPHS, GFR, CMP, PBNP #### [address] [address] CBCon 12-23-2022 Erythrocyte distribution width (RBC) [Ratio] 15.8 % High 11.5-14.5 [facility] ([place]) Comment on above: Performed By: #### T ROPHS, GFR, CMP, PBNP #### [address] [address] Hematocrit (Bld) [Volume fraction] 39.7 % Normal 37.0-47.0 [facility] ([place]) Comment on above: Performed By: #### T ROPHS, GFR, CMP, PBNP #### [address] [address] Hgb 13.2 G/dL Normal 12.0-16.0 [facility] ([place] Comment on above: Performed By: #### T ROPHS, GFR, CMP, PBNP #### [address] [address] MCH (RBC) [Entitic mass] 32.3 pg High 27.0-31.2 [facility] ([place]) Comment on above: Performed By: #### T ROPHS, GFR, CMP, PBNP #### [place] [id number] MCHC 33.2 G/dL Normal 33.0-37.0 [facility] ([place] Comment on above: Performed By: #### T ROPHS, GFR, CMP, PBNP #### [address] [address] MCV (RBC) [Entitic vol] 97.3 fL High 80.0-94.0 [facility] ([place]) Comment on above: Performed By: #### T ROPHS, GFR, CMP, PBNP #### [address] [address] Platelet 337 10 3/mcL Normal 130-400 [facility] ([place] Comment on above: Performed By: #### T ROPHS, GFR, CMP, PBNP #### [address] [address] Platelet mean volume (Bld) [Entitic vol] 7.7 fL Normal 7.4-10.4 [facility] ([place]) Comment on above: Performed By: #### T ROPHS, GFR, CMP, PBNP #### [address] [address] RBC 4.08 10 6/mcL Low 4.20-5.40 [facility] ([place]) Comment on above: Performed By: #### T GOMEZ, GFR, CMP, PBNP #### [place] [id number] [place], [place] [address] WBC 5.4 10 3/mcL Normal 4.6-10.8 [facility] ([place]) Comment on above: Performed By: #### T GOMEZ, GFR, CMP, PBNP #### [address] [place] [address] [place], [place] [address] LABORATORYOrdered By: iLsa Casas on 12-23-2022 Basophil, Absolute 0.1 103/mcL [...] B (Bld) [Mass/Vol] 540 pg/mL High 0-125 [facility] ([place]) Comment on above: Result Comment: NT-p roBNP results of less than 300 pg/mL effectively rules out acute congestive heart failure with 99% negative predictive value. Performed By: #### T GOMEZ, GFR, CMP, PBNP #### [address] [address] TROPHSon 12-23-2022 Troponin I High Sensitivity 14.1 ng/L Normal 0.0-51.4 [facility] ([place] Comment on above: Performed By: #### T GOMEZ, GFR, CMP, PBNP #### [address] [address] XR CHEST 1 VIEWon 12-23-2022 XR CHEST [...] 2:43:01 PM Ordering Provider: JOSE ROBERTO Rivero [facility] ([place]) Luba 11-26-2022 CN Office Visit (PULMWS ) STEVEN KOENIG ([id number]) 1955 F Date Time Provider Department 11/26/22 12:45 PM ISAURO ASHER During your visit today, we recorded the following information about you: Pulse Respiration Blood pressure Weight 98/minute 20/minute 120/84 57.6 kg Isauro Asher MD 11/26/2022 2:01 PM Signed . Respiratory [place] Note Patient name: Steven Koenig PCP: Ulises Hermosillo MD CC: Hemoptysis HPI: Steven Koenig 67 year old female current heavy smoker, over 100 pack years with PMH significant for bipolar affective disorder, h/o alcohol abuse, GERD, PAD, HLD, CAD s/p stent, severe COPD (FEV1 0.83 L 36%), oxygen dependence, previously following in [facility], new to [place]. Recent admission at [facility] in [place] for AECOPD. CXR reported as normal. Discharged [...] No chest pain or current cough. DME: [facility] DATA: PFT 05/2022: Review of spirometry shows severe obstruction without significant improvement post bronchodilators and moderate reduction in diffusing capacity Labs: Laboratory testing at [facility], normal CBC and platelet count. Negative COVID and influenza Imaging / Diagnostic Studies: DATE OF EXAM: Jul 26 2022 4:27PM [facility] 0562 - CT LUNG SCREEN WO IVCON [...] Anxiety 12/14/2015 Bipolar affective disorder, currently active ([facility]) 01/18/2016 [facility] Chronic bronchitis ([facility]) 07/26/2016 Closed skull fracture ([facility]) 1994 [facility], [facility] Coronary artery disease DDD (degenerative disc disease), cervical Endometriosis 2007 Essential hypertension 12/14/2015 GERD (gastroesophageal reflux disease) 03/13/2019 History of colon polyps History of gastric ulcer 12/14/2015 HLD (hyperlipidemia) Injury of left facial nerve 1994 PAD (peripheral artery disease) ([facility]) 09/28/2019 Recurrent major depression in partial remission ([facility]) 12/14/2015 S/P drug eluting coronary stent placement 08/25/2021 LAD and Dg2 Spinal stenosis ALLERGIES No Known Allergies albuterol HFA (VENTOLIN HFA) 90 mcg/actuation inhaler Inhale 2 Puffs as instructed every 6 hours as needed for wheezing/shortness of breath. elfhdxdhuyx-ooacgrrcg-o ilanter (TRELEGY ELLIPTA) 200-62.5-25 mcg inhalation powder [...] 8 hours (more content not included)... [facility] Tele[facility] (INTMWS) STEVEN KOENIG ([id number]) 1955 F Date Time Provider Department 11/20/22 ULISES HERMOSILLO INTMWS During your visit today, we recorded the following information about you: Christina Diamondadrianne Greco LPN 11/20/2022 10:40 AM Signed Pt called and reports she went to [facility] last week for difficulty breathing and [...] tablets by mouth daily at bedtime. - kwfkxfukpsy-vuxxtczai-b ilanter (TRELEGY ELLIPTA) 200-62.5-25 mcg inhalation powder [...] minutes, none*09/28/2019 07/07/2020 PAD (peripheral artery disease) ([facility]) [I73.9] 09/28/2019 Anxiety and depression (more content not included)... Normal [facility] .Auto Diffon 10-26-2022 Basophil, Absolute 0.1 10 3/mcL Normal 0.0-0.2 [facility] ([place] Comment on above: Performed By: #### T GOMEZ, GFR, CMP, PBNP #### [address] [address] Basophils/100 WBC (Bld) 1.6 % Normal 0.0-2.5 [facility] ([place] Comment on above: Performed By: #### T GOMEZ, GFR, CMP, PBNP #### [address] [address] Eosinophil, Absolute 0.2 10 3/mcL Normal 0.0-0.4 [facility] ([place]) Comment on above: Performed By: #### T GOMEZ, GFR, CMP, PBNP #### [address] [address] Eosinophils/100 WBC (Bld) 2.3 % Normal 0.0-7.0 [facility] ([place]) Comment on above: Performed By: #### T GOMEZ, GFR, CMP, PBNP #### [address] [address] Lymphocyte, Absolute 2.1 10 3/mcL Normal 0.8-3.9 [facility] ([place]) Comment on above: Performed By: #### T GOMEZ, GFR, CMP, PBNP #### [address] [address] Lymphocytes/100 WBC (Bld) 29.5 % Normal 10.0-50.0 [facility] ([place] Comment on above: Performed By: #### T ROPHS, GFR, CMP, PBNP #### [address] [address] Monocyte, Absolute 0.6 10 3/mcL Normal 0.2-1.0 [facility] ([place] Comment on above: Performed By: #### T ROPHS, GFR, CMP, PBNP #### [address] [address] Monocytes/100 WBC (Bld) 8.6 % Normal 1.7-13.0 [facility] ([place] Comment on above: Performed By: #### T ROPHS, GFR, CMP, PBNP #### [address] [address] Neutrophils/100 WBC (Bld) 58.0 % Normal 37.0-80.0 [facility] ([place] Comment on above: Performed By: #### T ROPMARILEE, GFR, CMP, PBNP #### [address] [address] .GFRon 10-26-2022 GFR 100 ml/min/1.73sqm Normal [facility] ([place] Comment on above: Result Comment: GFR Population [...] #### T ROPHS, GFR, CMP, PBNP #### [address] [address] GFR Non- 82 ml/min/1.73sqm Normal [facility] ([place]) Comment on above: Result Comment: GFR Population [...] #### T GOMEZ, GFR, CMP, PBNP #### [address] [address] .MDWon 10-26-2022 Monocyte Distribution Width 17.60 Normal 0.00-20.00 [facility] ([place]) Comment on above: Result Comment: For ED adult patients suspected of sepsis, MDW<=20.0 does not rule out sepsis or risk of sepsis Performed By: #### T ARIELLEHS, GFR, CMP, PBNP #### [address] [address] .NEUABSon 10-26-2022 Neutrophil, Absolute 4.1 10 3/mcL Normal 2.9-6.2 [facility] ([place]) Comment on above: Performed By: #### T ROPHS, GFR, CMP, PBNP #### [address] [address] CBCon 10-26-2022 Erythrocyte distribution width (RBC) [Ratio] 17.6 % High 11.5-14.5 [facility] ([place]) Comment on above: Performed By: #### T ROPHS, GFR, CMP, PBNP #### [address] [address] Hematocrit (Bld) [Volume fraction] 39.9 % Normal 37.0-47.0 [facility] ([place] Comment on above: Performed By: #### T GOMEZ, GFR, CMP, PBNP #### [address] [address] Hgb 13.3 G/dL Normal 12.0-16.0 [facility] ([place]) Comment on above: Performed By: #### T ARIELLEHS, GFR, CMP, PBNP #### [address] [address] MCH (RBC) [Entitic mass] 32.2 pg High 27.0-31.2 [facility] ([place]) Comment on above: Performed By: #### T GOMEZ, GFR, CMP, PBNP #### [place] [address] MCHC 33.4 G/dL Normal 33.0-37.0 [facility] ([place] Comment on above: Performed By: #### T ARIELLEHS, GFR, CMP, PBNP #### [address] [address] MCV (RBC) [Entitic vol] 96.4 fL High 80.0-94.0 [facility] ([place]) Comment on above: Performed By: #### T GOMEZ, GFR, CMP, PBNP #### [address] [address] Platelet 387 10 3/mcL Normal 130-400 [facility] ([place]) Comment on above: Performed By: #### T ROPHS, GFR, CMP, PBNP #### [address] [address] Platelet mean volume (Bld) [Entitic vol] 7.1 fL Low 7.4-10.4 [facility] ([place]) Comment on above: Performed By: #### T ROPHS, GFR, CMP, PBNP #### [address] [address] RBC 4.14 10 6/mcL Low 4.20-5.40 [facility] ([place]) Comment on above: Performed By: #### T ROPHS, GFR, CMP, PBNP #### [address] [address] WBC 7.1 10 3/mcL Normal 4.6-10.8 [facility] ([place]) Comment on above: Performed By: #### T ROPHS, GFR, CMP, PBNP #### [address] [address] CMPon 10-26-2022 Albumin Level 3.3 G/dL Low 3.4-4.8 [facility] ([place]) Comment on above: Performed By: #### T GOMEZ, GFR, CMP, PBNP #### [address] [address] Albumin/Globulin [Mass ratio] 0.9 {ratio} Low 1.1-2.5 [facility] ([place]) Comment on above: Performed By: #### T GOMEZ, GFR, CMP, PBNP #### [address] [address] ALP [Catalytic activity/Vol] 83 U/L Normal 40-135 [facility] ([place]) Comment on above: Performed By: #### T GOMEZ, GFR, CMP, PBNP #### [address] [address] ALT [Catalytic activity/Vol] 29 U/L Normal 14-59 [facility] ([place]) Comment on above: Performed By: #### T GOMEZ, GFR, CMP, PBNP #### [address] [address] AST [Catalytic activity/Vol] 21 U/L Normal 10-40 [facility] ([place] Comment on above: Performed By: #### T ROPHS, GFR, CMP, PBNP #### [address] [address] Bili Total 0.1 mg/dL Low 0.2-1.0 [facility] ([place]) Comment on above: Result Comment: Use of this assay is not recommended for patients undergoing treatment with eltrombopag due to the potential for falsely elevated results. Performed By: #### T ROPHS, GFR, CMP, PBNP #### [place] [id number] BUN/Creatinine Ratio 14 ratio Normal 7-27 [facility] ([place] Comment on above: Performed By: #### T ROPHS, GFR, CMP, PBNP #### [place] [id number] Calcium [Mass/Vol] 8.5 mg/dL Normal 8.4-10.2 [facility] ([place]) Comment on above: Performed By: #### T ROPHS, GFR, CMP, PBNP #### [place] [address] Chloride [Moles/Vol] 104 mmol/L Normal 98-107 [facility] ([place] Comment on above: Performed By: #### T ROPHS, GFR, CMP, PBNP #### [place] [address] CO2 [Moles/Vol] 28 mmol/L Normal 23-31 [facility] ([place]) Comment on above: Performed By: #### T ROPHS, GFR, CMP, PBNP #### [place] [address] Creatinine [Mass/Vol] 0.71 mg/dL Normal 0.55-1.02 [facility] ([place]) Comment on above: Performed By: #### T ROPHS, GFR, CMP, PBNP #### [address] [address] Electrolyte Balance 8.0 mEq/L Normal 4.0-15.0 [facility] ([place]) Comment on above: Performed By: #### T ROPHS, GFR, CMP, PBNP #### [place] [address] Globulin 3.5 G/dL Normal [facility] ([place] Comment on above: Performed By: #### T ROPHS, GFR, CMP, PBNP #### [address] [address] Glucose [Mass/Vol] 88 mg/dL Normal 80-115 [facility] ([place]) Comment on above: Performed By: #### T GOMEZ, GFR, CMP, PBNP #### [address] [address] Potassium [Moles/Vol] 4.5 mmol/L Normal 3.5-5.1 [facility] ([place] Comment on above: Performed By: #### T GOMEZ, GFR, CMP, PBNP #### [address] [address] Sodium [Moles/Vol] 140 mmol/L Normal 136-145 [facility] ([place] Comment on above: Performed By: #### T GOMEZ, GFR, CMP, PBNP #### [address] [address] Total Protein 6.8 G/dL Normal 6.4-8.2 [facility] ([place] Comment on above: Performed By: #### T GOMEZ, GFR, CMP, PBNP #### [address] [address] Urea nitrogen [Mass/Vol] 10 mg/dL Normal 7-18 [facility] ([place] Comment on above: Performed By: #### T GOMEZ, GFR, CMP, PBNP #### [address] [address] [id number] 10-26-2022 SARS-CoV-2 (COVID-19) RNA IVANA+probe Ql (Unsp spec) Negative Normal Negative [facility] ([place] Comment on above: Performed By: #### T ROPHS, GFR, CMP, PBNP #### [address] [address] SARS-CoV-2 (COVID-19) RNA IVANA+probe Ql (Unsp spec) Normal [facility] ([place] Comment on above: Result Comment: Nega tive [...] #### T GOMEZ, GFR, CMP, PBNP #### [address] [address] FLURSVon 10-26-2022 Flu A PCR (AO) Negative Normal Negative [facility] ([place] Comment on above: Result Comment: Posi tive [...] virus (RSV) nucleic acid in nasopharyngeal swab (WAITER/WAITRESS) specimens from patients with signs and symptoms of respiratory infection in conjunction with clinical and laboratory findings. The test is intended for use as an aid in the differential diagnosis of influenza A virus, influenza B virus, and RSV in humans and is not intended to detect influenza C. Performed By: #### T GOMEZ, GFR, CMP, PBNP #### [place] [address] [place], [place] [address] Flu B PCR (AO) Negative Normal Negative [facility] ([place] Comment on above: Result Comment: Posi tive [...] REPEAT COLLECTION AND TESTING IS RECOMMENDED. The [employer] Flu A/B & RSV Assay is a real-time polymerase chain reaction (PCR) based qualitative in vitro diagnostic test for the direct detection and differentiation of influenza A virus, influenza B virus, and respiratory syncytial virus (RSV) nucleic acid in nasopharyngeal swab (WAITER/WAITRESS) specimens from patients with signs and symptoms of respiratory infection in conjunction with clinical and laboratory findings. The test is intended for use as an aid in the differential diagnosis of influenza A virus, influenza B virus, and RSV in humans and is not intended to detect influenza C. Performed By: #### T GOMEZ, GFR, CMP, PBNP #### [address] [address] RSV PCR (AO) Negative Normal Negative [facility] ([place] Comment on above: Result Comment: Posi tive [...] virus (RSV) nucleic acid in nasopharyngeal swab (WAITER/WAITRESS) specimens from patients with signs and symptoms of respiratory infection in conjunction with clinical and laboratory findings. The test is intended for use as an aid in the differential diagnosis of influenza A virus, influenza B virus, and RSV in humans and is not intended to detect influenza C. Performed By: #### T ROPHS, GFR, CMP, PBNP #### [place] [id number] [place] [address] LABORATORYOrdered By: Jensen Fay on 10-26-2022 FLUAV [...] B (Bld) [Mass/Vol] 521 pg/mL High 0-125 [facility] ([place] Comment on above: Result Comment: NT-p roBNP results of less than 300 pg/mL effectively rules out acute congestive heart failure with 99% negative predictive value. Performed By: #### T ROPHS, GFR, CMP, PBNP #### [address] [address] TOXSCon 10-26-2022 U Ampheta (AO) Negative Normal [facility] ([place]) Comment on above: Performed By: #### U A, TOXSC #### [address] [address] U Nanci (AO) Negative Normal [facility] ([place]) Comment on above: Performed By: #### U A, TOXSC #### [address] [address] U Heron (AO) Negative Normal [facility] ([place]) Comment on above: Performed By: #### U A, TOXSC #### [address] [address] U Cannab (AO) Negative [facility] ([place]) Comment on above: Performed By: #### U A, TOXSC #### [address] [address] U Cocaine (AO) Negative [facility] ([place] Comment on above: Performed By: #### U A, TOXSC #### [address] [address] U Methadone (AO) Negative [facility] ([place] Comment on above: Performed By: #### U A, TOXSC #### [address] [address] U PCP (AO) Negative [facility] ([place] Comment on above: Performed By: #### U A, TOXSC #### [address] [address] U TCA (AO) Negative [facility] ([place] Comment on above: Performed By: #### U A, TOXSC #### [address] [address] Urine Opiates (AO) Negative [facility] ([place]) Comment on above: Performed By: #### U A, TOXSC #### [address] [address] TROPHSon 10-26-2022 Troponin I High Sensitivity 15.6 ng/L Normal 0.0-51.4 [facility] ([place]) Comment on above: Performed By: #### T ROPHS, GFR, CMP, PBNP #### [address] [address] UAon 10-26-2022 Color (U) Yellow [facility] ([place]) Comment on above: Performed By: #### U A, TOXSC #### [address] [address] Glucose (U) [Mass/Vol] Negative Normal Negative [facility] ([place]) Comment on above: Performed By: #### U A, TOXSC #### [address] [address] Ketones Ql (U) Negative Normal Negative [facility] ([place] Comment on above: Performed By: #### U A, TOXSC #### [address] [address] UA Appear Clear Normal Clear [facility] ([place] Comment on above: Performed By: #### U A, TOXSC #### [address] [address] UA Blood Negative Normal Negative [facility] ([place] Comment on above: Performed By: #### U A, TOXSC #### [place] [address] UA Leuk Est Negative Normal Negative [facility] ([place] Comment on above: Performed By: #### U A, TOXSC #### [place] [address] UA Nitrite Negative Normal Negative [facility] ([place] Comment on above: Performed By: #### U A, TOXSC #### [place] [address] UA pH 5.5 Normal 5.0 - 8.0 [facility] ([place]) Comment on above: Performed By: #### U A, TOXSC #### [place] [address] UA Protein Negative Normal Negative [facility] ([place] Comment on above: Performed By: #### U A, TOXSC #### [address] [address] UA Spec Grav <=1.005 Abnormal 1.015-1.025 [facility] ([place]) Comment on above: Performed By: #### U A, TOXSC #### [place] [address] UA Specimen Type Not Given Normal [facility] ([place] Comment on above: Performed By: #### U A, TOXSC #### [place] [address] [place], [place] [address] UA Urobilinogen 0.2 E.U./dL Normal 0.2-1.0 [facility] ([place]) Comment on above: Performed By: #### U A, TOXSC #### [facility] [address] [place], [place] [address] Urobilinogen (U) [Mass/Vol] Negative Normal Negative [facility] ([place] Comment on above: Performed By: #### U A, TOXSC #### [facility] [address] [place], [place] [address] XR CHEST 1 VIEWon 10-26-2022 XR CHEST [...] of acute cardiopulmonary process. Interpreted by: Keyla cMkeon MD Preliminary Report By: Keyla Mckeon MD Electronically signed By Keyla Mckeon MD Dictated Date: 10/26/2022 7:05:14 PM Prelim Date: 10/26/2022 7:06:29 PM Sign Date: 10/26/2022 7:06:29 PM Ordering Provider: BRIAN Rivero [facility]) CT LUNG SCREEN WO IVCONon CT LUNG SCREEN WO IVCON * * *Final Repor t* * * DATE OF EXAM: Jul 26 2022 4:27PM [facility] 0562 - CT LUNG SCREEN WO IVCON [...] without contrast. MQ: CTLCS_6 Patient characteristics: * Pygq-yh-Kodzt: 1955; Age at exam: 67 years * Gender: Female * Lung Disease: Asymptomatic (no signs or symptoms of lung disease) * Number of Pack Years: 55 * Current smoker (=0) or Number of Years since Quit: 0 * Ordering provider and NPI: NICOLE KIMIMARCELLE KENNY [id number] * Interpreting radiologist and NPI: Ervin [id number] Exam acquisition parameters: * Exam Date: 07/26/2022 4:27 PM * Site: [facility] * * CT System Public Safety Director: [employer] * CT System Model: Dual Source * [...] Descending stents in place; Right Coronary mild Canal Equipment Mechanic (topogram) images: No additional findings. IMPRESSION: LungRADS category: 2 LungRADS modifier: None LungRADS 0 reason: n/a Recommendations: Continue annual screening with LDCT in 12 months. Other actionable findings: ====== Reference: [employer]. Lung CT Screening Reporting and Data System (Lung-RADS). Available at: http://www.acr.org/Qual ity-Safety/Resources/Shaina RutledgeS Environmental Associate: SRAVANI Transcribe Date/Time: Jul 27 2022 8:04A Dictated by : VEE GAMINO MD This examination was interpreted and the report reviewed and electronically signed by: VEE GAMINO MD on Jul 27 2022 8:16AM EST [id number] Normal [facility] OXIMETRY WITH AMBULATIONon 0 07-09-2022 [facility] ECHOon 05-21-2022 [facility] .Auto Diffon 05-05-2022 Basophil, Absolute 0.0 10 3/mcL Normal 0.0-0.3 [facility] [place] Comment on above: Performed By: #### T GOMEZ, GFR, CMP, PBNP #### [address] [address] Basophils/100 WBC (Bld) 0.1 % Normal 0.0-2.5 [facility] ([place]) Comment on above: Performed By: #### T GOMEZ, GFR, CMP, PBNP #### [address] [address] Eosinophil, Absolute 0.0 10 3/mcL Normal 0.0-0.7 [facility] ([place]) Comment on above: Performed By: #### T ROPHS, GFR, CMP, PBNP #### [address] [address] Eosinophils/100 WBC (Bld) 0.0 % Normal 0.0-6.0 [facility] ([place]) Comment on above: Performed By: #### T ROPHS, GFR, CMP, PBNP #### [address] [address] Lymphocyte, Absolute 0.6 10 3/mcL Low 0.9-4.3 [facility] ([place]) Comment on above: Performed By: #### T ROPHS, GFR, CMP, PBNP #### [address] [address] Lymphocytes/100 WBC (Bld) 5.1 % Low 20.0-40.0 [facility] ([place]) Comment on above: Performed By: #### T ROPHS, GFR, CMP, PBNP #### [address] [address] Monocyte, Absolute 0.3 10 3/mcL Normal 0.1-1.4 [facility] ([place] Comment on above: Performed By: #### T ROPHS, GFR, CMP, PBNP #### [address] [address] Monocytes/100 WBC (Bld) 2.4 % Normal 2.0-13.0 [facility] ([place]) Comment on above: Performed By: #### T ROPHS, GFR, CMP, PBNP #### [address] [address] Neutrophils/100 WBC (Bld) 92.4 % High 50.0-75.0 [facility] ([place]) Comment on above: Performed By: #### T ROPHS, GFR, CMP, PBNP #### [address] [address] .GFRon 05-05-2022 GFR >60 Normal [facility] [place] Comment on above: Result Comment: GFR Population [...] #### T GOMEZ, GFR, CMP, PBNP #### [address] [address] GFR Non- >60 Normal [facility] ([place]) Comment on above: Result Comment: GFR Population [...] #### T GOMEZ, GFR, CMP, PBNP #### [address] [address] .MDWon 05-05-2022 Monocyte Distribution Width Not performed Normal 0.00-20.00 [facility] ([place]) Comment on above: Result Comment: MDW testing performed only on adult ER patients between the ages of 18-89 years. Performed By: #### T GOMEZ, GFR, CMP, PBNP #### [address] [address] .NEUABSon 05-05-2022 Neutrophil, Absolute 10.8 10 3/mcL High 2.3-8.1 [facility] ([place] Comment on above: Performed By: #### T GOMEZ, GFR, CMP, PBNP #### Anthony [address] [address] BMPon 05-05-2022 BUN/Creatinine Ratio 29.6 ratio High 10.0-22.0 [facility] ([place] Comment on above: Performed By: #### T ROPHS, GFR, CMP, PBNP #### [address] [address] Calcium [Mass/Vol] 8.5 mg/dL Low 8.7-10.4 [facility] ([place]) Comment on above: Performed By: #### T ROPHS, GFR, CMP, PBNP #### [address] [address] Chloride [Moles/Vol] 106 mmol/L Normal 98-110 [facility] [place] Comment on above: Performed By: #### T ROPHS, GFR, CMP, PBNP #### [address] [address] CO2 [Moles/Vol] 32 mmol/L Normal 22-32 [facility] ([place]) Comment on above: Performed By: #### T GOMEZ, GFR, CMP, PBNP #### [address] [address] Creatinine [Mass/Vol] 0.71 mg/dL Normal 0.50-1.20 [facility] ([place]) Comment on above: Performed By: #### T GOMEZ, GFR, CMP, PBNP #### [address] [address] Electrolyte Balance 3.0 mEq/L Low 4.0-15.0 [facility] ([place]) Comment on above: Performed By: #### T ROPHS, GFR, CMP, PBNP #### [address] [address] Glucose [Mass/Vol] 224 mg/dL High 82-115 [facility] ([place]) Comment on above: Performed By: #### T ROPHS, GFR, CMP, PBNP #### [address] [address] Potassium [Moles/Vol] 4.5 mmol/L Normal 3.5-5.0 [facility] ([place]) Comment on above: Performed By: #### T ROPHS, GFR, CMP, PBNP #### [address] [address] Sodium [Moles/Vol] 141 mmol/L Normal 136-145 [facility] ([place]) Comment on above: Performed By: #### T ROPHS, GFR, CMP, PBNP #### [address] [address] Urea nitrogen [Mass/Vol] 21.0 mg/dL Normal 8.0-22.0 [facility] ([place]) Comment on above: Performed By: #### T ROPHS, GFR, CMP, PBNP #### [address] [address] CBCon 05-05-2022 Erythrocyte distribution width (RBC) [Ratio] 16.5 % High 11.5-15.5 [facility] ([place]) Comment on above: Performed By: #### T ROPHS, GFR, CMP, PBNP #### [address] [address] Hematocrit (Bld) [Volume fraction] 38.3 % Normal 34.0-46.0 [facility] ([place]) Comment on above: Performed By: #### T ARIELLEHS, GFR, CMP, PBNP #### [place] [id number] Hgb 12.2 G/dL Normal 12.0-16.0 [facility] ([place]) Comment on above: Performed By: #### T ROPHS, GFR, CMP, PBNP #### [address] [address] MCH (RBC) [Entitic mass] 30.9 pg Normal 27.0-33.0 [facility] ([place]) Comment on above: Performed By: #### T ROPHS, GFR, CMP, PBNP #### [address] [address] MCHC 32.0 G/dL Normal 32.0-36.0 [facility] ([place]) Comment on above: Performed By: #### T ROPHS, GFR, CMP, PBNP #### [address] [address] MCV (RBC) [Entitic vol] 96.7 fL Normal 80.0-99.0 [facility] ([place] Comment on above: Performed By: #### T GOMEZ, GFR, CMP, PBNP #### [address] [address] Platelet 285 10 3/mcL Normal 150-450 [facility] ([place]) Comment on above: Performed By: #### T GOMEZ, GFR, CMP, PBNP #### Anthony [address] [address] Platelet mean volume (Bld) [Entitic vol] 8.9 fL Normal 6.6-10.5 [facility] ([place]) Comment on above: Performed By: #### T GOMEZ, GFR, CMP, PBNP #### Anthony [address] [address] RBC 3.96 10 6/mcL Low 4.10-5.30 [facility] ([place]) Comment on above: Performed By: #### T GOMEZ, GFR, CMP, PBNP #### [address] [address] WBC 11.6 10 3/mcL High 4.5-10.8 [facility] ([place]) Comment on above: Performed By: #### T GOMEZ, GFR, CMP, PBNP #### [address] [address] LABORATORYOrdered By: SYSTEM SYSTEM on 05-05-2022 Basophils [...] Absolute 0.0 10 3/mcL Normal 0.0-0.3 [facility] [place] Comment on above: Performed By: #### T GOMEZ, GFR, CMP, PBNP #### [address] [address] Basophils/100 WBC (Bld) 0.2 % Normal 0.0-2.5 [facility] ([place] Comment on above: Performed By: #### T GOMEZ, GFR, CMP, PBNP #### [place] [address] [place], [place] [address] Eosinophil, Absolute 0.0 10 3/mcL Normal 0.0-0.7 [facility] ([place]) Comment on above: Performed By: #### T ROPHS, GFR, CMP, PBNP #### [address] [address] Eosinophils/100 WBC (Bld) 0.0 % Normal 0.0-6.0 [facility] ([place]) Comment on above: Performed By: #### T ROPHS, GFR, CMP, PBNP #### [address] [address] Lymphocyte, Absolute 0.6 10 3/mcL Low 0.9-4.3 [facility] ([place]) Comment on above: Performed By: #### T ROPHS, GFR, CMP, PBNP #### [address] [address] Lymphocytes/100 WBC (Bld) 5.0 % Low 20.0-40.0 [facility] ([place]) Comment on above: Performed By: #### T ROPHS, GFR, CMP, PBNP #### [address] [address] Monocyte, Absolute 0.3 10 3/mcL Normal 0.1-1.4 [facility] [place] Comment on above: Performed By: #### T ROPHS, GFR, CMP, PBNP #### [address] [address] Monocytes/100 WBC (Bld) 2.4 % Normal 2.0-13.0 [facility] ([place]) Comment on above: Performed By: #### T ROPHS, GFR, CMP, PBNP #### [address] [address] Neutrophils/100 WBC (Bld) 92.4 % High 50.0-75.0 [facility] ([place]) Comment on above: Performed By: #### T ROPHS, GFR, CMP, PBNP #### [address] [address] .GFRon 05-04-2022 GFR >60 Normal [facility] [place] Comment on above: Result Comment: GFR Population [...] T GOMEZ, GFR, CMP, PBNP #### Anthony [address] [address] GFR Non- >60 Normal [facility] ([place]) Comment on above: Result Comment: GFR Population [...] T GOMEZ, GFR, CMP, PBNP #### Anthony [address] [address] .MDWon 05-04-2022 Monocyte Distribution Width Not performed Normal 0.00-20.00 [facility] ([place]) Comment on above: Result Comment: MDW testing performed only on adult ER patients between the ages of 18-89 years. Performed By: #### T GOMEZ, GFR, CMP, PBNP #### [address] [address] .NEUABSon 05-04-2022 Neutrophil, Absolute 10.5 10 3/mcL High 2.3-8.1 [facility] ([place] Comment on above: Performed By: #### T GOMEZ, GFR, CMP, PBNP #### [address] [address] BMPon 05-04-2022 BUN/Creatinine Ratio 24.7 ratio High 10.0-22.0 [facility] ([place] Comment on above: Performed By: #### T GOMEZ, GFR, CMP, PBNP #### [address] [address] Calcium [Mass/Vol] 8.7 mg/dL Normal 8.7-10.4 [facility] ([place]) Comment on above: Performed By: #### T GOMEZ, GFR, CMP, PBNP #### [address] [address] Chloride [Moles/Vol] 108 mmol/L Normal 98-110 [facility] [place] Comment on above: Performed By: #### T GOMEZ, GFR, CMP, PBNP #### [address] [address] CO2 [Moles/Vol] 30 mmol/L Normal 22-32 [facility] ([place]) Comment on above: Performed By: #### T GOMEZ, GFR, CMP, PBNP #### [address] [address] Creatinine [Mass/Vol] 0.85 mg/dL Normal 0.50-1.20 [facility] ([place]) Comment on above: Performed By: #### T ARIELLEHS, GFR, CMP, PBNP #### [address] [address] Electrolyte Balance 3.0 mEq/L Low 4.0-15.0 [facility] ([place]) Comment on above: Performed By: #### T ROPHS, GFR, CMP, PBNP #### [address] [address] Glucose [Mass/Vol] 150 mg/dL High 82-115 [facility] ([place]) Comment on above: Performed By: #### T ROPHS, GFR, CMP, PBNP #### [address] [address] Potassium [Moles/Vol] 4.8 mmol/L Normal 3.5-5.0 [facility] ([place]) Comment on above: Performed By: #### T ROPHS, GFR, CMP, PBNP #### [place] [id number] Sodium [Moles/Vol] 141 mmol/L Normal 136-145 [facility] ([place]) Comment on above: Performed By: #### T ROPHS, GFR, CMP, PBNP #### [place] [address] Urea nitrogen [Mass/Vol] 21.0 mg/dL Normal 8.0-22.0 [facility] ([place] Comment on above: Performed By: #### T GOMEZ, GFR, CMP, PBNP #### [address] [address] CBCon 05-04-2022 Erythrocyte distribution width (RBC) [Ratio] 16.6 % High 11.5-15.5 [facility] ([place] Comment on above: Performed By: #### T ROPHS, GFR, CMP, PBNP #### [address] [address] Hematocrit (Bld) [Volume fraction] 39.9 % Normal 34.0-46.0 [facility] ([place]) Comment on above: Performed By: #### T ROPHS, GFR, CMP, PBNP #### [place] [id number] Hgb 12.8 G/dL Normal 12.0-16.0 [facility] ([place]) Comment on above: Performed By: #### T ROPHS, GFR, CMP, PBNP #### [address] [address] MCH (RBC) [Entitic mass] 30.8 pg Normal 27.0-33.0 [facility] ([place]) Comment on above: Performed By: #### T ROPHS, GFR, CMP, PBNP #### [address] [address] MCHC 32.0 G/dL Normal 32.0-36.0 [facility] ([place]) Comment on above: Performed By: #### T ROPHS, GFR, CMP, PBNP #### [address] [address] MCV (RBC) [Entitic vol] 96.4 fL Normal 80.0-99.0 [facility] ([place] Comment on above: Performed By: #### T ARIELLEHS, GFR, CMP, PBNP #### [place] [address] Platelet 282 10 3/mcL Normal 150-450 [facility] ([place]) Comment on above: Performed By: #### T GOMEZ, GFR, CMP, PBNP #### [place] [address] Platelet mean volume (Bld) [Entitic vol] 8.9 fL Normal 6.6-10.5 [facility] ([place]) Comment on above: Performed By: #### T GOMEZ, GFR, CMP, PBNP #### [place] [address] RBC 4.14 10 6/mcL Normal 4.10-5.30 [facility] ([place]) Comment on above: Performed By: #### T ROPHS, GFR, CMP, PBNP #### [place] [id number] WBC 11.4 10 3/mcL High 4.5-10.8 [facility] ([place]) Comment on above: Performed By: #### T ROPHS, GFR, CMP, PBNP #### [address] [address] LABORATORYOrdered By: SYSTEM SYSTEM on 05-04-2022 Basophils [...] Basophil, Absolute 0.1 10 3/mcL Normal 0.0-0.3 [facility] [place] Comment on above: Performed By: #### T ROPHS, GFR, CMP, PBNP #### [address] [address] Basophils/100 WBC (Bld) 0.7 % Normal 0.0-2.5 [facility] ([place] Comment on above: Performed By: #### T ROPHS, GFR, CMP, PBNP #### [address] [address] Eosinophil, Absolute 0.0 10 3/mcL Normal 0.0-0.7 [facility] ([place]) Comment on above: Performed By: #### T ROPHS, GFR, CMP, PBNP #### [address] [address] Eosinophils/100 WBC (Bld) 0.3 % Normal 0.0-6.0 [facility] ([place]) Comment on above: Performed By: #### T ROPHS, GFR, CMP, PBNP #### [address] [address] Lymphocyte, Absolute 2.3 10 3/mcL Normal 0.9-4.3 [facility] ([place]) Comment on above: Performed By: #### T ROPHS, GFR, CMP, PBNP #### [address] [address] Lymphocytes/100 WBC (Bld) 25.2 % Normal 20.0-40.0 [facility] ([place]) Comment on above: Performed By: #### T ROPHS, GFR, CMP, PBNP #### [address] [address] Monocyte, Absolute 1.0 10 3/mcL Normal 0.1-1.4 [facility] ([place] Comment on above: Performed By: #### T ROPHS, GFR, CMP, PBNP #### [address] [address] Monocytes/100 WBC (Bld) 10.8 % Normal 2.0-13.0 [facility] ([place] Comment on above: Performed By: #### T ROPHS, GFR, CMP, PBNP #### [address] [address] Neutrophils/100 WBC (Bld) 63.0 % Normal 50.0-75.0 [facility] ([place]) Comment on above: Performed By: #### T GOMEZ, GFR, CMP, PBNP #### [address] [address] .GFRon 05-03-2022 GFR Non- >60 Normal [facility] ([place] Comment on above: Result Comment: GFR Population [...] #### T GOMEZ, GFR, CMP, PBNP #### [address] [address] GFR >60 Normal [facility] [place] Comment on above: Result Comment: GFR Population [...] T GOMEZ, GFR, CMP, PBNP #### Anthony [address] [address] .MDWon 05-03-2022 Monocyte Distribution Width Not performed Normal 0.00-20.00 [facility] ([place]) Comment on above: Result Comment: MDW testing performed only on adult ER patients between the ages of 18-89 years. Performed By: #### T ROPHS, GFR, CMP, PBNP #### [address] [address] .NEUABSon 05-03-2022 Neutrophil, Absolute 5.6 10 3/mcL Normal 2.3-8.1 [facility] ([place]) Comment on above: Performed By: #### T ROPHS, GFR, CMP, PBNP #### [address] [address] BMPon 05-03-2022 BUN/Creatinine Ratio 17.9 ratio Normal 10.0-22.0 [facility] ([place] Comment on above: Performed By: #### T ROPHS, GFR, CMP, PBNP #### [address] [address] Calcium [Mass/Vol] 8.7 mg/dL Normal 8.7-10.4 [facility] ([place] Comment on above: Performed By: #### T ROPHS, GFR, CMP, PBNP #### [address] [address] Chloride [Moles/Vol] 110 mmol/L Normal 98-110 [facility] [place] Comment on above: Performed By: #### T ROPHS, GFR, CMP, PBNP #### [address] [address] CO2 [Moles/Vol] 28 mmol/L Normal 22-32 [facility] ([place] Comment on above: Performed By: #### T ROPHS, GFR, CMP, PBNP #### [address] [address] Creatinine [Mass/Vol] 0.84 mg/dL Normal 0.50-1.20 [facility] ([place] Comment on above: Performed By: #### T ROPHS, GFR, CMP, PBNP #### [address] [address] Electrolyte Balance 6.0 mEq/L Normal 4.0-15.0 [facility] ([place]) Comment on above: Performed By: #### T ROPHS, GFR, CMP, PBNP #### [address] [address] Glucose [Mass/Vol] 96 mg/dL Normal 82-115 [facility] ([place] Comment on above: Performed By: #### T ROPHS, GFR, CMP, PBNP #### [address] [address] Potassium [Moles/Vol] 4.5 mmol/L Normal 3.5-5.0 [facility] ([place] Comment on above: Performed By: #### T ROPHS, GFR, CMP, PBNP #### [address] [address] Sodium [Moles/Vol] 144 mmol/L Normal 136-145 [facility] ([place] Comment on above: Performed By: #### T ROPHS, GFR, CMP, PBNP #### [address] [address] Urea nitrogen [Mass/Vol] 15.0 mg/dL Normal 8.0-22.0 [facility] ([place] Comment on above: Performed By: #### T ROPHS, GFR, CMP, PBNP #### [address] [address] CBCon 05-03-2022 Erythrocyte distribution width (RBC) [Ratio] 16.3 % High 11.5-15.5 [facility] ([place] Comment on above: Performed By: #### T ROPHS, GFR, CMP, PBNP #### [address] [address] Hematocrit (Bld) [Volume fraction] 40.5 % Normal 34.0-46.0 [facility] ([place] Comment on above: Performed By: #### T ROPHS, GFR, CMP, PBNP #### [address] [address] Hgb 13.2 G/dL Normal 12.0-16.0 [facility] ([place]) Comment on above: Performed By: #### T ROPHS, GFR, CMP, PBNP #### [address] [address] MCH (RBC) [Entitic mass] 31.4 pg Normal 27.0-33.0 [facility] ([place]) Comment on above: Performed By: #### T ROPHS, GFR, CMP, PBNP #### [address] [address] MCHC 32.6 G/dL Normal 32.0-36.0 [facility] ([place]) Comment on above: Performed By: #### T ROPHS, GFR, CMP, PBNP #### [address] [address] MCV (RBC) [Entitic vol] 96.1 fL Normal 80.0-99.0 [facility] ([place] Comment on above: Performed By: #### T ROPHS, GFR, CMP, PBNP #### [address] [address] Platelet 290 10 3/mcL Normal 150-450 [facility] ([place] Comment on above: Performed By: #### T ROPHS, GFR, CMP, PBNP #### [address] [address] Platelet mean volume (Bld) [Entitic vol] 8.9 fL Normal 6.6-10.5 [facility] ([place]) Comment on above: Performed By: #### T ROPHS, GFR, CMP, PBNP #### [address] [address] RBC 4.21 10 6/mcL Normal 4.10-5.30 [facility] ([place]) Comment on above: Performed By: #### T ROPHS, GFR, CMP, PBNP #### [address] [address] WBC 8.9 10 3/mcL Normal 4.5-10.8 [facility] ([place]) Comment on above: Performed By: #### T ROPHS, GFR, CMP, PBNP #### [facility] [address] [place], [place] [address] LABORATORYOrdered By: SYSTEM SYSTEM on 05-03-2022 Basophils [...] 05-03-2022 Magnesium [Mass/Vol] 1.8 mg/dL Normal 1.6-2.4 [facility] [place] Comment on above: Performed By: #### T ROPHS, GFR, CMP, PBNP #### [address] [address] .Auto Diffon 05-02-2022 Basophil, Absolute 0.1 10 3/mcL Normal 0.0-0.2 [facility] [place] Comment on above: Performed By: #### T GOMEZ, GFR, CMP, PBNP #### [address] [address] Basophils/100 WBC (Bld) 0.9 % Normal 0.0-2.5 [facility] ([place] Comment on above: Performed By: #### T GOMEZ, GFR, CMP, PBNP #### [address] [address] Eosinophil, Absolute 0.1 10 3/mcL Normal 0.0-0.4 [facility] ([place] Comment on above: Performed By: #### T ROPHS, GFR, CMP, PBNP #### [address] [address] Eosinophils/100 WBC (Bld) 0.8 % Normal 0.0-7.0 [facility] ([place] Comment on above: Performed By: #### T ROPHS, GFR, CMP, PBNP #### [address] [address] Lymphocyte, Absolute 2.1 10 3/mcL Normal 0.8-3.9 [facility] ([place] Comment on above: Performed By: #### T ROPHS, GFR, CMP, PBNP #### [address] [address] Lymphocytes/100 WBC (Bld) 16.7 % Normal 10.0-50.0 [facility] ([place] Comment on above: Performed By: #### T ROPHS, GFR, CMP, PBNP #### [address] [address] Monocyte, Absolute 0.9 10 3/mcL Normal 0.2-1.0 [facility] [place] Comment on above: Performed By: #### T ROPHS, GFR, CMP, PBNP #### [address] [address] Monocytes/100 WBC (Bld) 7.0 % Normal 1.7-13.0 [facility] ([place] Comment on above: Performed By: #### T ROPMARILEE, GFR, CMP, PBNP #### [address] [address] Neutrophils/100 WBC (Bld) 74.6 % Normal 37.0-80.0 [facility] ([place] Comment on above: Performed By: #### T GOMEZ, GFR, CMP, PBNP #### [address] [address] .GFRon 05-02-2022 GFR 61 ml/min/1.73sqm Normal [facility] ([place] Comment on above: Result Comment: GFR Population [...] #### T ROPHS, GFR, CMP, PBNP #### [address] [address] GFR Non- 50 ml/min/1.73sqm Normal [facility] ([place] Comment on above: Result Comment: GFR Population [...] #### T GOMEZ, GFR, CMP, PBNP #### [address] [address] .MDWon 05-02-2022 Monocyte Distribution Width 17.05 Normal 0.00-20.00 [facility] ([place]) Comment on above: Result Comment: For ED adult patients suspected of sepsis, MDW<=20.0 does not rule out sepsis or risk of sepsis Performed By: #### T GOMEZ, GFR, CMP, PBNP #### [address] [address] .NEUABSon 05-02-2022 Neutrophil, Absolute 9.4 10 3/mcL High 2.9-6.2 [facility] ([place]) Comment on above: Performed By: #### T ROPMARILEE, GFR, CMP, PBNP #### [address] [address] BMPon 05-02-2022 BUN/Creatinine Ratio 9 ratio Normal 7-27 [facility] 1928[facility] ([place]) Comment on above: Performed By: #### T GOMEZ, GFR, CMP, PBNP #### [address] [address] Calcium [Mass/Vol] 8.8 mg/dL Normal 8.4-10.2 [facility] ([place]) Comment on above: Performed By: #### T ROPHS, GFR, CMP, PBNP #### [address] [address] Chloride [Moles/Vol] 102 mmol/L Normal 98-107 [facility] ([place] Comment on above: Performed By: #### T ROPHS, GFR, CMP, PBNP #### [address] [address] CO2 [Moles/Vol] 29 mmol/L Normal 23-31 [facility] ([place]) Comment on above: Performed By: #### T ROPHS, GFR, CMP, PBNP #### [address] [address] Creatinine [Mass/Vol] 1.09 mg/dL High 0.55-1.02 [facility] ([place]) Comment on above: Performed By: #### T ARIELLEHS, GFR, CMP, PBNP #### [address] [address] Electrolyte Balance 7.0 mEq/L Normal 4.0-15.0 [facility] ([place]) Comment on above: Performed By: #### T GOMEZ, GFR, CMP, PBNP #### [address] [address] Glucose [Mass/Vol] 194 mg/dL High 80-115 [facility] ([place]) Comment on above: Performed By: #### T ROPHS, GFR, CMP, PBNP #### [address] [address] Potassium [Moles/Vol] 4.1 mmol/L Normal 3.5-5.1 [facility] ([place]) Comment on above: Performed By: #### T ROPHS, GFR, CMP, PBNP #### [address] [address] Sodium [Moles/Vol] 138 mmol/L Normal 136-145 [facility] ([place]) Comment on above: Performed By: #### T ROPHS, GFR, CMP, PBNP #### [address] [address] Urea nitrogen [Mass/Vol] 10 mg/dL Normal 7-18 [facility] ([place]) Comment on above: Performed By: #### T ROPHS, GFR, CMP, PBNP #### [address] [address] CBCon 05-02-2022 Erythrocyte distribution width (RBC) [Ratio] 17.0 % High 11.5-14.5 [facility] ([place]) Comment on above: Performed By: #### T ROPHS, GFR, CMP, PBNP #### [place] [address] Hematocrit (Bld) [Volume fraction] 45.4 % Normal 37.0-47.0 [facility] ([place] Comment on above: Performed By: #### T ROPHS, GFR, CMP, PBNP #### [place] [address] Hgb 14.9 G/dL Normal 12.0-16.0 [facility] ([place]) Comment on above: Performed By: #### T ROPHS, GFR, CMP, PBNP #### [place] [address] MCH (RBC) [Entitic mass] 31.4 pg High 27.0-31.2 [facility] ([place]) Comment on above: Performed By: #### T ROPHS, GFR, CMP, PBNP #### [place] [address] MCHC 32.9 G/dL Low 33.0-37.0 [facility] ([place]) Comment on above: Performed By: #### T ROPHS, GFR, CMP, PBNP #### [place] [id number] MCV (RBC) [Entitic vol] 95.5 fL High 80.0-94.0 [facility] ([place]) Comment on above: Performed By: #### T ROPHS, GFR, CMP, PBNP #### [address] [place] [address] Platelet 351 10 3/mcL Normal 130-400 [facility] ([place]) Comment on above: Performed By: #### T ROPHS, GFR, CMP, PBNP #### Anthony [address] [address] Platelet mean volume (Bld) [Entitic vol] 9.0 fL Normal 7.4-10.4 [facility] ([place]) Comment on above: Performed By: #### T ROPHS, GFR, CMP, PBNP #### Anthony [address] [address] RBC 4.76 10 6/mcL Normal 4.20-5.40 [facility] ([place]) Comment on above: Performed By: #### T ROPHS, GFR, CMP, PBNP #### Anthony [address] [address] WBC 12.6 10 3/mcL High 4.6-10.8 [facility] ([place]) Comment on above: Performed By: #### T ROPHS, GFR, CMP, PBNP #### [address] [address] YEOV99ny 05-02-2022 Date of Onset [id number] Invalid Interpretation Code [facility] ([place]) Comment on above: Performed By: #### T ROPHS, GFR, CMP, PBNP #### Anthony [address] [address] Employed in Healthcare No Normal [facility] ([place]) Comment on above: Performed By: #### T ROPHS, GFR, CMP, PBNP #### Anthony [address] [address] First Test No [facility] ([place]) Comment on above: Performed By: #### T ROPHS, GFR, CMP, PBNP #### Anthony [address] [address] Hospitalized Yes Normal [facility] ([place] Comment on above: Performed By: #### T ROPHS, GFR, CMP, PBNP #### [place] [address] ICU No Normal [facility] ([place] Comment on above: Performed By: #### T ROPHS, GFR, CMP, PBNP #### [place] [address] Not [facility] ([place] Comment on above: Performed By: #### T ROPHS, GFR, CMP, PBNP #### [place] [address] Resides in Congregate Care Setting No [facility] ([place] Comment on above: Performed By: #### T ROPHS, GFR, CMP, PBNP #### [place] [address] SARS-CoV-2 (COVID-19) RNA IVANA+probe Ql (Unsp spec) Negative Normal Negative [facility] ([place]) Comment on above: Performed By: #### T GOMEZ, GFR, CMP, PBNP #### [place] [address] SARS-CoV-2 (COVID-19) RNA IVANA+probe Ql (Unsp spec) Normal [facility] ([place]) Comment on above: Result Comment: Nega tive [...] #### T GOMEZ, GFR, CMP, PBNP #### [facility] [address] [place], [place] [address] Symptomatic as Defined by CDC Yes Normal [facility] ([place]) Comment on above: Performed By: #### T ROPHS, GFR, CMP, PBNP #### [facility] [address] [place], [place] [address] LABORATORYOrdered By: Gina Feliz on 05-02-2022 Blood Glucose Testing Reason Routine (05/02/22 9:38 AM) [facility] Work Phone: Glucose [Mass/Vol] 156 mg/dL Invalid Interpretation Code 82 - 115 mg/dL [facility] Work Phone: LABORATORYOrdered By: Lisa Casas [...] B (Bld) [Mass/Vol] 344 pg/mL High 0-125 [facility] ([place]) Comment on above: Result Comment: NT-p roBNP results of less than 300 pg/mL effectively rules out acute congestive heart failure with 99% negative predictive value. Performed By: #### T GOMEZ, GFR, CMP, PBNP #### [address] [address] TROPHSon 05-02-2022 Troponin I High Sensitivity 13.0 ng/L Normal 0.0-51.4 [facility] ([place]) Comment on above: Performed By: #### T GOMEZ, GFR, CMP, PBNP #### [address] [address] XR CHEST 1 VIEWon 05-02-2022 XR CHEST [...] 05/02/2022 5:25:03 AM Ordering Provider: EMMANUEL KILLIAN [facility] ([place]) XR ELBOW 2V AP/LAT RTon 11-3 XR [...] healing of fracture of the olecranon process. Environmental Associate: SRAVANI Transcribe Date/Time: Oct 10 2021 2:44P Dictated by : ERENDIRA PAREDES MD This examination was interpreted and the report reviewed and electronically signed by: ERENDIRA PAREDES MD on Oct 10 2021 2:51PM EST [id number] [facility] 09-28-2021 [facility] Telephone (AGCARDPOB ) STEVEN KOENIG ([id number]) 1955 F Date Time Provider Department 09/28/21 TRACY RAMIRES During your visit today, we recorded the following information about you: Mely Trinidad LPN 09/28/2021 10:10 AM Signed ----- Message from Tracy Ramires APRN.TELECOMMUNICATOR SUPERVISOR sent at 09/28/2021 8:08 AM EST ----- [...] Date Reviewed: 09/28/2021 Reviewed by: Tracy Ramires APRN.TELECOMMUNICATOR SUPERVISOR - Fully Assessed Reason for Visit: Results [...] exertion [R06.00] 08/26/2021 Coronary artery disease involving jamul tolbert*09/27/2021 Encounter Status:Closed by MELY TRINIDAD on 01/04/22 Normal [facility] CBC panel Auto (Bld)on 09-27 Erythrocyte distribution width (RBC) [Ratio] 15.3 % High 11.5-15.0 [facility] Comment on above: Order Comment: Speci men Type: BLOOD SPECIMEN Performed By: #### 5 8410-2 ####[facility] LABORATORYCLIA [id number] [address] [place] [facility] Hematocrit (Bld) [Volume fraction] 47.2 % High 36.0-46.0 [facility] Comment on above: Order Comment: Speci men Type: BLOOD SPECIMEN Performed By: #### 5 8410-2 ####[facility] LABORATORYCLIA [id number] [address] [place] Hemoglobin (Bld) [Mass/Vol] 14.5 g/dL Normal 11.5-15.5 [facility] Comment on above: Order Comment: Speci men Type: BLOOD SPECIMEN Performed By: #### 5 8410-2 ####[facility] LABORATORYCLIA [id number] [address] MCH (RBC) [Entitic mass] 31.7 pg Normal 26.0-34.0 [facility] Comment on above: Order Comment: Speci men Type: BLOOD SPECIMEN Performed By: #### 5 8410-2 ####[facility] LABORATORYCLIA [id number] [address] MCHC (RBC) [Mass/Vol] 30.7 g/dL Normal 30.5-36.0 [facility] Comment on above: Order Comment: Speci men Type: BLOOD SPECIMEN Performed By: #### 5 8410-2 ####[facility] LABORATORYCLIA [id number] [address] MCV (RBC) [Entitic vol] 103.3 fL High 80.0-100.0 [facility] Comment on above: Order Comment: Speci men Type: BLOOD SPECIMEN Performed By: #### 5 8410-2 ####[facility] LABORATORYCLIA [id number] [address] Nucleated RBC (Bld) [#/Vol] 10*3/uL Normal <0.01 [facility] Comment on above: Order Comment: Speci men Type: BLOOD SPECIMEN Performed By: #### 5 8410-2 ####[facility] LABORATORYCLIA [id number] [address] Platelet mean volume (Bld) [Entitic vol] 10.0 fL Normal 9.0-12.7 [facility] Comment on above: Order Comment: Speci men Type: BLOOD SPECIMEN Performed By: #### 5 8410-2 ####[facility] LABORATORYCLIA [id number] [address] Platelets (Bld) [#/Vol] 398 10*3/uL Normal 150-400 [facility] Comment on above: Order Comment: Speci men Type: BLOOD SPECIMEN Performed By: #### 5 8410-2 ####[facility] LABORATORYCLIA [id number] [address] [facility] RBC (Bld) [#/Vol] 4.57 10*6/uL Normal 3.90-5.20 [facility] Comment on above: Order Comment: Speci men Type: BLOOD SPECIMEN Performed By: #### 5 8410-2 ####[facility] LABORATORYCLIA [id number] [address] WBC (Bld) [#/Vol] 7.70 10*3/uL Normal 3.70-11.00 [facility] Comment on above: Order Comment: Speci men Type: BLOOD SPECIMEN Performed By: #### 5 8410-2 ####[facility] LABORATORYCLIA [id number] [address] CNOVon 09-27-2021 CNOV Office Visit (AGCARDPOB) STEVEN KOENIG ([id number]) 1955 F Date Time Provider Department 09/27/21 [...] seen by myself on 06/12/2021 at our [place] office. Stress testing was done d/t symptoms and need for cardiac clearance. TID ratio was elevated so she was recommended a [facility] and ultimately had PCI of [...] Alcohol use disorder 01/18/2016 Dr. Angie Jones, [facility] - Anxiety 12/14/2015 - Bipolar affective disorder, currently active ([facility]) 01/18/2016 Dr. Angie Jones, [facility] - Chronic bronchitis ([facility]) 07/26/2016 - Closed skull fracture ([facility]) [address] [facility] - Coronary artery disease - DDD (degenerative disc disease), cervical - Endometriosis 2007 - Essential hypertension 12/14/2015 - GERD (gastroesophageal reflux disease) 03/13/2019 - History of colon polyps - History of gastric ulcer 12/14/2015 - HLD (hyperlipidemia) - Injury of left facial nerve 1994 - PAD (peripheral artery disease) ([facility]) 09/28/2019 - Recurrent major depression in partial remission ([facility]) 12/14/2015 - S/P drug eluting coronary stent placement 08/25/2021 LAD and Dg2 - Spinal stenosis PAST SURGICAL HISTORY Procedure Laterality Date - APPENDECTOMY 1979 - COLONOSCOP W/ OR W/O [facility] SPEC 2010 Colonoscopy - COLONOSCOPY 04/03/2017 diverticulosis- repeat 10 years - [place] FACIAL NERVE,TOTAL Left 1989 [facility] - EGD 04/03/2017 Gastritis, duodenitis, GERD [...] to treat (more content not included)... Normal [facility] LIPID PANEL BASICon 09-27-20 21 Cholesterol [Mass/Vol] 189 mg/dL Normal <200 [facility] Comment on above: Order Comment: Speci men Type: BLOOD SPECIMEN Result Comment: <200 mg/dL, Desirable 200-239 mg/dL, Borderline high >239 mg/dL, High Performed By: #### L IPB #### [facility] CLIA [id number] [address] Cholesterol in HDL [Mass/Vol] 70 mg/dL Normal >39 [facility] Comment on above: Order Comment: Speci men Type: BLOOD SPECIMEN Result Comment: 40-5 9 mg/dL, Acceptable >59 mg/dL, High: Negative risk factor for coronary heart disease <40 mg/dL, Low: Positive risk factor for coronary heart disease Performed By: #### L IPB #### [facility] CLIA [id number] [address] Cholesterol in LDL [Mass/Vol] 101 mg/dL High <100 [facility] Comment on above: Order Comment: Speci men Type: BLOOD SPECIMEN Result Comment: <100 mg/dL, Optimal 100-129 mg/dL, Near optimal/above optimal 130-159 mg/dL, Borderline high 160-189 mg/dL, High >189 mg/dL, Very high Secondary prevention optimal LDL Cholesterol levels are recommended to be < 70 mg/dL Performed By: #### L IPB #### [facility] CLIA [id number] [address] Cholesterol in LDL/Cholesterol in HDL [Mass ratio] 1.44 {ratio} Normal <2.54 [facility] Comment on above: Order Comment: Speci men Type: BLOOD SPECIMEN Result Comment: Refe rence: 1. National Cholesterol Education Program ATP III Guideline At-A-Glance Quick Desk Reference: National Heart, Lung, and Blood [place]. National Institutes of Health. 2001: NIH Publication No. 01-3305. 2. An International Atherosclerosis Society position paper: global recommendations for the management of dyslipidemia: executive summary, Atherosclerosis. 2014: 232(2):410-413. Performed By: #### L IPB #### [facility] CLIA [id number] [address] Cholesterol in VLDL [Mass/Vol] 18 mg/dL Normal <30 [facility] Comment on above: Order Comment: Speci men Type: BLOOD SPECIMEN Performed By: #### L IPB #### [facility] CLIA [id number] [address] Cholesterol non HDL [Mass/Vol] 119 mg/dL Normal <130 [facility] Comment on above: Order Comment: Speci men Type: BLOOD SPECIMEN Result Comment: <130 mg/dL, Optimal 130-159 mg/dL, Near optimal/above optimal 160-189 mg/dL, Borderline high 190-219 mg/dL, High >219 mg/dL, Very high Secondary prevention optimal non HDL Cholesterol levels are recommended to be <100 mg/dL Performed By: #### L IPB #### [facility] CLIA [id number] [address] Cholesterol.total/Izabella sterol in HDL [Mass ratio] 2.70 {ratio} Normal <5.10 [facility] Comment on above: Order Comment: Speci men Type: BLOOD SPECIMEN Performed By: #### L IPB #### [facility] CLIA [id number] [address] FASTING TIME 12 hrs Normal [facility] Comment on above: Order Comment: Speci men Type: BLOOD SPECIMEN Performed By: #### L IPB #### [facility] CLIA [id number] [address] Triglyceride [Mass/Vol] 88 mg/dL Normal <150 [facility] Comment on above: Order Comment: Speci men Type: BLOOD SPECIMEN Result Comment: <150 mg/dL, Normal 150-199 mg/dL, Borderline high 200-499 mg/dL, High >499 mg/dL, Very high Performed By: #### L IPB #### [facility] CLIA [id number] [address] Frank 09-01-2021 JEOVANNY Telephone (EARNESTINE) CLARISSESTEVEN DIAZ ([id number]) 1955 F Date Time Provider Department 09/01/21 [...] Encounter Status:Closed by TRACY RAMIRES on 09/01/21 [facility] CNPN Telephone (AKCRL) STEVEN KOENIG ([id number]) 1955 F Date Time Provider Department 09/01/21 GUILLERMO MCGILL During your visit today, we recorded the following information about you: Guillermo Mcgill, Fire Protection Equipment Technician 09/01/2021 10:44 AM Signed Faxed to [place] based on location. Guillermo Mcgill CEP, Cardiopulmonary Rehab [id number] Allergies As of Date: 09/01/2021 (No Known Allergies) Date Reviewed: 08/31/2021 Reviewed by: Babatunde Lomeli MD - Fully Assessed Reason for Visit: Cardiac Rehab [2955] Prescriptions as of 09/01/2021 - oxyCODONE-acetaminophen (PERCOCET) [...] by GUILLERMO MCGILL on 09/01/21 [facility] 08-26-2021 [facility] HNO ID: [id number] Author: Claude Thao MD Service: Interventional Cardiology [...] 90 tab (more content not included)... Normal [facility] BRIEF OP NOTon 08-25-2021 BRIEF OP NOT HNO ID: [id number] Author: Juan Ramon Pichardo MD Service: Cardiovascular [...] LAD portion of the stent 3.7mm, with rastafari of blood flow, no residual stenosis. No complications. Recommend: ASA/Plavix Continue other guideline directed medical therapy Juan Ramon Kemp MD Pollution Control Engineer of Internal Medicine [facility] Section of Interventional Cardiology Pulp Making Plant Operator of Structural Heart Disease [address], [address] [place] [address] Facsimile: [phone] Email: [email or web address] Normal [facility] Basic metabolic 2000 panelon 08-25-2021 Anion gap [Moles/Vol] 14 mmol/L Normal 9-18 [facility] Comment on above: Order Comment: Speci men Type: BLOOD SPECIMEN Performed By: #### 2 4321-2 ####[facility] LABORATORYCLIA [id number] [place] [address] [place] Calcium [Mass/Vol] 9.2 mg/dL Normal 8.5-10.2 [facility] Comment on above: Order Comment: Speci men Type: BLOOD SPECIMEN Performed By: #### 2 4321-2 ####[facility] LABORATORYCLIA [id number] [address] Chloride [Moles/Vol] 102 mmol/L Normal 97-105 [facility] Comment on above: Order Comment: Speci men Type: BLOOD SPECIMEN Performed By: #### 2 4321-2 ####[facility] LABORATORYCLIA [id number] [address] CO2 [Moles/Vol] 21 mmol/L Low 22-30 [facility] Comment on above: Order Comment: Speci men Type: BLOOD SPECIMEN Performed By: #### 2 4321-2 ####[facility] LABORATORYCLIA [id number] [address] Creatinine [Mass/Vol] 0.72 mg/dL Normal 0.58-0.96 [facility] Comment on above: Order Comment: Speci men Type: BLOOD SPECIMEN Performed By: #### 2 4321-2 ####[facility] LABORATORYCLIA [id number] [address] GFR/1.73 sq M.predicted MDRD (S/P/Bld) [Vol rate/Area] mL/min/{1.73_m2} Normal [facility] Comment on above: Order [...] actual GFR. Performed By: #### 2 4321-2 ####[facility] LABORATORYCLIA [id number] [address] [place] Glucose [Mass/Vol] 92 mg/dL Normal 74-99 [facility] Comment on above: Order Comment: Speci men Type: BLOOD SPECIMEN Result Comment: The [place] Diabetes Association (ADA) provides guidance for cutoff [...] Standards of Medical Care in Diabetes 2016, [place] Diabetes Association. Diabetes Care. 2016.39(Suppl 1). Performed By: #### 2 4321-2 ####[facility] LABORATORYCLIA [id number] [address] [place] Potassium [Moles/Vol] 4.7 mmol/L Normal 3.7-5.1 [facility] Comment on above: Order Comment: Speci men Type: BLOOD SPECIMEN Performed By: #### 2 4321-2 ####[facility] LABORATORYCLIA [id number] [address] [place] Sodium [Moles/Vol] 137 mmol/L Normal 136-144 [facility] Comment on above: Order Comment: Speci men Type: BLOOD SPECIMEN Performed By: #### 2 4321-2 ####[facility] LABORATORYCLIA [id number] [place] [address] [place] Urea nitrogen [Mass/Vol] 11 mg/dL Normal 7-21 [facility] Comment on above: Order Comment: Speci men Type: BLOOD SPECIMEN Performed By: #### 2 4321-2 ####[facility] LABORATORYCLIA [id number] [address] [place] CBC panel Auto (Bld)on 08-25 Erythrocyte distribution width (RBC) [Ratio] 15.4 % High 11.5-15.0 [facility] Comment on above: Order Comment: Speci men Type: BLOOD SPECIMEN Performed By: #### 5 8410-2 #### [facility] CLIA [id number] [address] Hematocrit (Bld) [Volume fraction] 46.7 % High 36.0-46.0 [facility] Comment on above: Order Comment: Speci men Type: BLOOD SPECIMEN Performed By: #### 5 8410-2 #### [facility] CLIA [id number] [address] Hemoglobin (Bld) [Mass/Vol] 14.9 g/dL Normal 11.5-15.5 [facility] Comment on above: Order Comment: Speci men Type: BLOOD SPECIMEN Performed By: #### 5 8410-2 #### [facility] CLIA [id number] [address] MCH (RBC) [Entitic mass] 31.6 pg Normal 26.0-34.0 [facility] Comment on above: Order Comment: Speci men Type: BLOOD SPECIMEN Performed By: #### 5 8410-2 #### [facility] CLIA [id number] [address] MCHC (RBC) [Mass/Vol] 31.9 g/dL Normal 30.5-36.0 [facility] Comment on above: Order Comment: Speci men Type: BLOOD SPECIMEN Performed By: #### 5 8410-2 #### [facility] CLIA [id number] [address] MCV (RBC) [Entitic vol] 98.9 fL Normal 80.0-100.0 [facility] Comment on above: Order Comment: Speci men Type: BLOOD SPECIMEN Performed By: #### 5 8410-2 #### [facility] CLIA [id number] [address] Nucleated RBC (Bld) [#/Vol] 10*3/uL Normal <0.01 [facility] Comment on above: Order Comment: Speci men Type: BLOOD SPECIMEN Performed By: #### 5 8410-2 #### [facility] CLIA [id number] [address] Platelet mean volume (Bld) [Entitic vol] 10.4 fL Normal 9.0-12.7 [facility] Comment on above: Order Comment: Speci men Type: BLOOD SPECIMEN Performed By: #### 5 8410-2 #### [facility] CLIA [id number] [address] Platelets (Bld) [#/Vol] 375 10*3/uL Normal 150-400 [facility] Comment on above: Order Comment: Speci men Type: BLOOD SPECIMEN Performed By: #### 5 8410-2 #### [facility] CLIA [id number] [address] RBC (Bld) [#/Vol] 4.72 10*6/uL Normal 3.90-5.20 [facility] Comment on above: Order Comment: Speci men Type: BLOOD SPECIMEN Performed By: #### 5 8410-2 #### [facility] CLIA [id number] [address] WBC (Bld) [#/Vol] 10.76 10*3/uL Normal 3.70-11.00 [facility] Comment on above: Order Comment: Speci men Type: BLOOD SPECIMEN Performed By: #### 5 8410-2 #### [facility] CLIA [id number] [address] HISTORY PHYSICALon HISTORY PHYSICAL HNO ID: [id number] Author: Juan Ramon Pichardo MD Service: Cardiovascular [...] August 25, 2021 TIME: 9:00 AM Normal [facility] CNPNon 08-15-2021 JEOVANNY Telephone (AGCARDPOB ) STEVEN KOENIG ([id number]) 1955 F Date Time Provider Department 08/15/21 TRACY RAMIRES During your visit today, we recorded the following information about you: Suzy Cordero RN 08/15/2021 8:11 AM Signed ----- Message from Tracy Ramires APRN.TELECOMMUNICATOR SUPERVISOR sent at 08/15/2021 7:51 AM EDT ----- [...] type [R07.9] Pre-operative cardiovascular examination [Z01.810] Order(s):CARDIAC LAUNDRETTE OWNER ORDER [[id number]] Order #: [id number]: 1 CBC [[facility]] Order #: [id number] FUTURE Prescriptions as of 08/16/2021 - oxyCODONE-acetaminophen [...] depression i (more content not included)... Normal [facility] NM CARDIAC PERF STRESS/PHARM on 08-14-2021 NM CARDIAC PERF STRESS/PHARM * * *Final Report* * * DATE OF EXAM: Aug 14 2021 4:02PM KELI 0006 - NM CARDIAC PERF STRESS/PHARM / PROCEDURE REASON: multiple diagnoses * * * * Physician Interpretation * * * * Stress Wash Box Operator Report: [facility] Date of service: 08/14/2021 3:00:40 PM Supervising [...] 60 minutes later. See administered doses below. [facility] Date of service: 08/14/2021 3:00:40 PM Indication: [...] of scarring. Final ---- Stress ECG Report: [facility] Date of service: 08/14/2021 3:00:40 PM Ordering physician: TRACY RAMIRES Specialist: Grace Sagastume Production Line Operator: Guera Fowler Stress ECG interpreting physician: [...] 146/80 mmHg. The double product achieved was [address]80. Indication: Shortness of breath Medical History and [...] / 80 mmHg Rate Pressure Product (RPP): 23459 St (more content not included)... [facility] Frank 06-21-2021 JEOVANNY Telephone (AGCARDPOB ) STEVEN KOENIG ([id number]) 1955 F Date Time Provider Department 06/21/21 TRACY RAMIRES During your visit today, we recorded the following information about you: Tracy Alan LPN 06/21/2021 8:38 AM Signed ----- Message from Tracy Ramires APRN.TELECOMMUNICATOR SUPERVISOR sent at 06/21/2021 7:27 AM EDT ----- Please call patient and let her know she has mild non obstructive carotid disease. Thank you! Tracy Alan LPN 06/21/2021 8:40 AM Signed I called and left a message for to call [facility] for test results. PETERSON Grover LPN [...] Encounter Status:Closed by DIANA MAHAN on 06/21/21 [facility] No Panel InformationOrdered By: [facility] Provider on 01-27-2021 [facility] XR Chest PA and Lateralon IMPRESSION: 1. Findings compatible with underlying emphysema. 2. Mild opacity at the left lateral base, atelectasis versus focus of bronchopneumonia in the appropriate clinical setting. Follow-up to resolution is advised. Environmental Associate: PSC[employer] Transcribe Date/Time: Jan 27 2021 11:43A Dictated by : ERENDIRA PAREDES MD This examination was interpreted and the report reviewed and electronically signed by: ERENDIRA PAREDES MD on Jan 27 2021 11:45AM [facility] DIVISION OF RADIOLOGY * * *Final [...] fractures again identified. DIVISION OF RADIOLOGY Provider, [facility] - 01/27/2021 * * *Final Report* * [...] clinical setting. Follow-up to resolution is advised. Environmental Associate: SRAVANI Transcribe Date/Time: Jan 27 2021 11:43A Dictated by : ERENDIRA PAREDES MD This examination was interpreted and the report reviewed and electronically signed by: ERENDIRA PAREDES MD on Jan 27 2021 11:45AM [facility] Radiology Study observation (narrative) Jeronimo contreras [facility] XR HIP BILAT 5V PEL/AP/LAT [...] Impression: 1. No acute fracture or dislocation. Environmental Associate: [facility] Transcribe Date/Time: Jan 27 2021 11:57A Dictated by : ANASTASIYA GIBBS MD This examination was interpreted and the report reviewed and electronically signed by: ANASTASIYA GIBBS MD on Jan 27 2021 11:58AM [facility] DIVISION OF RADIOLOGY Provider, [facility] - 01/27/2021 * * *Final Report* * [...] Impression: 1. No acute fracture or dislocation. Environmental Associate: [facility] Transcribe Date/Time: Jan 27 2021 11:57A Dictated by : ANASTASIYA GIBBS MD This examination was interpreted and the report reviewed and electronically signed by: ANASTASIYA GIBBS MD on Jan 27 2021 11:58AM EST [facility] Radiology Study observation (narrative) Jeronimo contreras [facility] Basic Metabolic Panelon 06-2 Calcium 8.4 mg/dL Normal 8.2-10.1 [facility] Comment on above: Result Comment: Repe ated Performed By: #### H EMDF, BMP3 ####[facility] [address] [place] [address] Chloride 100 mmol/L Normal 98-109 [facility] Comment on above: Result Comment: Repe ated Performed By: #### H EMDF, BMP3 ####[facility] [address] [place] [address] Sodium 134 mmol/L Low 135-145 [facility] Comment on above: Result Comment: Repe ated Performed By: #### H EMDF, BMP3 ####[facility] [address] [address] Anion gap 7 Normal [facility] Comment on above: Performed By: #### H EMDF, BMP3 ####[facility] [address] [address] CO2 27 mmol/L Normal 21-32 [facility] Comment on above: Performed By: #### H EMDF, BMP3 ####[facility] [address] [place] [address] Creatinine 0.79 mg/dL Normal 0.55-1.40 [facility] Comment on above: Performed By: #### H EMDF, BMP3 ####[facility] [address] [place] [address] eGFR (black) mL/min/{1.73_m2} Normal >60 [facility] Comment on above: Performed By: #### H EMDF, BMP3 ####[facility] [id number] [place] [address] eGFR (non-black) mL/min/{1.73_m2} Normal >60 [facility] Comment on above: Result Comment: Sour ce- MDRD equation with creatinine calibration to IDMS(NKDEP) eGFR not recommended for drug dose adjustment Performed By: #### H EMDF, BMP3 ####[facility] [address] [place] [address] Glucose mass conc 98 mg/dL Normal 70-100 [facility] Comment on above: Performed By: #### H GREY BMP3 ####[id number] [place] [address] Potassium molar conc 4.6 mmol/L Normal 3.5-5.1 [facility] Comment on above: Performed By: #### H EMDF, BMP3 ####[facility] [address] [address] Urea nitrogen 20 mg/dL Normal 7-25 [facility] Comment on above: Performed By: #### H GREY BMP3 ####[facility] [address] [address] Glucose,Bedsideon 05-04-2018 Glucose mass conc 99 mg/dL Normal 70-100 [facility] Comment on above: Result Comment: Test performed by glucose meter. Results may be 10%-15% lowerthan serum/plasma values. (CLIA ID [id number]) Performed By: #### B GLU ####[facility] [employer] [facility] [address] [address] Hemogram w/ Autodiffon 05-04 Abs Baso Cnt 0.1 10*3/uL Normal 0.0-0.2 [facility] Comment on above: Performed By: #### H EMDF, BMP3 ####[facility] [employer] [facility] [address] [address] Basophils/100 WBC Auto (Bld) 1.0 % Normal 0.0-2.0 [facility] Comment on above: Performed By: #### H EMDF, BMP3 ####[facility] [address] [place] [address] Eosinophils 0.4 10*3/uL Normal 0.0-0.5 [facility] Comment on above: Performed By: #### H EMDF, BMP3 ####[facility] [employer] [facility] [address] [address] Eosinophils/100 leukocytes 4.3 % Normal 1.0-6.0 [facility] Comment on above: Performed By: #### H EMDF, BMP3 ####[address] [address] Erythrocyte distribution width Auto Ratio (RBC) 14.7 % High 11.5-14.5 [facility] Comment on above: Performed By: #### H EMDF, BMP3 ####[address] [address] Erythrocytes (RBC) 4.10 10*6/uL Normal 3.80-5.20 [facility] Comment on above: Performed By: #### H EMDF, BMP3 ####[address] [address] Granulocytes/100 WBC (Bld) 57.2 % Normal 40.0-80.0 [facility] Comment on above: Performed By: #### H EMDF, BMP3 ####[address] [address] Hematocrit (HCT) 40.2 % Normal 35.0-47.0 [facility] Comment on above: Performed By: #### H EMDF, BMP3 ####[address] [address] Hemoglobin mass conc (Bld) 13.3 g/dL Normal 11.7-16.0 [facility] Comment on above: Performed By: #### H EMDF, BMP3 ####[address] [address] Lymphocytes 2.5 10*3/uL Normal 1.0-4.3 [facility] Comment on above: Performed By: #### H EMDF, BMP3 ####[address] [address] Lymphocytes/100 leukocytes 27.6 % Normal 20.0-40.0 [facility] Comment on above: Performed By: #### H EMDF, BMP3 ####[address] [address] MCH 32.5 pg Normal 26.0-34.0 [facility] Comment on above: Performed By: #### H EMDF, BMP3 ####[address] [address] MCHC mass conc (RBC) 33.0 % Normal 32.0-36.0 [facility] Comment on above: Performed By: #### H GREY BMP3 ####[address] [address] MCV 98.2 fL High 79.0-98.0 [facility] Comment on above: Performed By: #### H GREY BMP3 ####[address] [address] Monocytes 0.9 10*3/uL High 0.0-0.8 [facility] Comment on above: Performed By: #### H GREY BMP3 ####[address] [address] Monocytes/100 leukocytes 9.9 % Normal 2.0-10.0 [facility] Comment on above: Performed By: #### H GREY BMP3 ####[address] [address] Neutrophils 5.2 10*3/uL Normal 1.8-7.0 [facility] Comment on above: Performed By: #### H GREY BMP3 ####[address] [address] Platelet mean volume (PMV) 8.8 fL Normal 7.4-10.4 [facility] Comment on above: Performed By: #### H GREY BMP3 ####[address] [address] Platelets 362 10*3/uL Normal 140-440 [facility] Comment on above: Performed By: #### H GREY BMP3 ####[address] [address] WBC (Leukocytes) 9.1 10*3/uL Normal 3.6-10.7 [facility] Comment on above: Performed By: #### H GREY BMP3 ####[address] [address] Ethanol Serum/Plasmaon 04-30 Ethanol-Serum/Plasma < 0.010 Normal 0.000-0.010 [facility] Comment on above: Result Comment: NOTE : This result is for medical treatment only. Analysis performed using non-forensic procedures. Performed By: #### H EMDF, CMP3, QWAL, ETOH4 ####[facility] [id number] [place], [place] HCG,Urine Qualon 04-30-2018 HCG.beta subunit ( test) Ql (U) Negative Normal Negative [facility] Comment on above: Result Comment: Preg ismael is the most common reason for HCG in urine, althoughchoriocarcinoma, hydatidiform mole, and certain nontropho-blastic malignancies also result in detectable urinary HCGlevels. Sensitivity = 20mIU/mL. Performed By: #### U AMAC, DRGA4, HCGUR ####[address] [place], [place] Comp Metabolic Panelon 04-29 Alanine aminotransferase (ALT) 26 U/L Normal 13-69 [facility] Comment on above: Performed By: #### H EMDF, CMP3, QWAL, ETOH4 ####[facility] [id number] [place] Alkaline phosphatase (ALP) 65 U/L Normal 38-126 [facility] Comment on above: Performed By: #### H EMDF, CMP3, QWAL, ETOH4 ####[facility] [id number] [place], [place] Anion gap 10 Normal [facility] Comment on above: Performed By: #### H EMDF, CMP3, QWAL, ETOH4 ####[facility] [employer] [facility] [id number] [place], [place] Aspartate aminotransferase (AST) 23 U/L Normal 15-46 [facility] Comment on above: Performed By: #### H EMDF, CMP3, QWAL, ETOH4 ####[facility] [employer] [facility] [id number] [place], [place] Calcium 9.1 mg/dL Normal 8.4-10.2 [facility] Comment on above: Performed By: #### H EMDF, CMP3, QWAL, ETOH4 ####[address] [place], [place] CO2 24 mmol/L Normal 22-30 [facility] Comment on above: Performed By: #### H EMDF, CMP3, QWAL, ETOH4 ####[address] [place], [place] Glucose mass conc 144 mg/dL High 70-100 [facility] Comment on above: Performed By: #### H EMDF, CMP3, QWAL, ETOH4 ####[address] [place], [place] Protein 7.2 g/dL Normal 6.3-8.2 [facility] Comment on above: Performed By: #### H EMDF, CMP3, QWAL, ETOH4 ####[address] Urea nitrogen 14 mg/dL Normal 7-20 [facility] Comment on above: Performed By: #### H EMDF, CMP3, QWAL, ETOH4 ####[address] Bilirubin (total) 0.3 mg/dL Normal 0.2-1.3 [facility] Comment on above: Performed By: #### H EMDF, CMP3, QWAL, ETOH4 ####[address] [place], [place] Creatinine 0.74 mg/dL Normal 0.52-1.25 [facility] Comment on above: Performed By: #### H EMDF, CMP3, QWAL, ETOH4 ####[address] [place], [place] eGFR (black) mL/min/{1.73_m2} Normal >60 [facility] Comment on above: Performed By: #### H EMDF, CMP3, QWAL, ETOH4 ####[address] [place], [place] eGFR (non-black) mL/min/{1.73_m2} Normal >60 [facility] Comment on above: Result Comment: Sour ce- MDRD equation with creatinine calibration to IDMS(NKDEP) eGFR not recommended for drug dose adjustment Performed By: #### H EMDF, CMP3, QWAL, ETOH4 ####[facility] [place], [place] Albumin 4.4 g/dL Normal 3.5-5.0 [facility] Comment on above: Performed By: #### H EMDF, CMP3, QWAL, ETOH4 ####[address] [place], [place] Chloride 106 mmol/L Normal 98-107 [facility] Comment on above: Performed By: #### H EMDF, CMP3, QWAL, ETOH4 ####[address] [place] Potassium molar conc 4.4 mmol/L Normal 3.5-5.1 [facility] Comment on above: Performed By: #### H EMDF, CMP3, QWAL, ETOH4 ####[address] [place], [place] Sodium 141 mmol/L Normal 137-145 [facility] Comment on above: Performed By: #### H EMDF, CMP3, QWAL, ETOH4 ####[facility] [place], [place] Drugs of Abuseon 04-29-2018 Cocaine, Ur Negative Normal [facility] Comment on above: Performed By: #### U AMAC, DRGA4, HCGUR ####[address] [place], [place] Phencyclidine (PCP), Ur Negative Normal S [facility] Comment on above: Result Comment: The [...] Performed By: #### U AMAC, DRGA4, HCGUR ####[address] [place], [place] Methadone, Ur Negative Normal [facility] Comment on above: Performed By: #### U AMAC, DRGA4, HCGUR ####[address] Opiates, Ur Negative Normal [facility] Comment on above: Performed By: #### U AMAC, DRGA4, HCGUR ####[address] Benzodiazepines, Ur Negative Normal [facility] Comment on above: Performed By: #### U AMAC, DRGA4, HCGUR ####[address] Amphetamines, Ur Negative Normal [facility] Comment on above: Performed By: #### U AMAC, DRGA4, HCGUR ####[address] Barbiturates, Ur Negative Normal [facility] Comment on above: Performed By: #### U AMAC, DRGA4, HCGUR ####[address] Oxycodone/Oxymorphine,U r Negative Normal [facility] Comment on above: Performed By: #### U AMAC, DRGA4, HCGUR ####[address] Hemogram w/ Autodiffon 04-29 Abs Baso Cnt 0.1 10*3/uL Normal 0.0-0.2 [facility] Comment on above: Performed By: #### H EMDF, CMP3, QWAL, ETOH4 ####[address] [place] Basophils/100 WBC Auto (Bld) 1.1 % Normal 0.0-2.0 [facility] Comment on above: Performed By: #### H EMDF, CMP3, QWAL, ETOH4 ####[address] [place], [place] Eosinophils 0.3 10*3/uL Normal 0.0-0.5 [facility] Comment on above: Performed By: #### H EMDF, CMP3, QWAL, ETOH4 ####[address] Eosinophils/100 leukocytes 3.3 % Normal 1.0-6.0 [facility] Comment on above: Performed By: #### H EMDF, CMP3, QWAL, ETOH4 ####[address] Erythrocyte distribution width Auto Ratio (RBC) 14.8 % High 11.5-14.5 [facility] Comment on above: Performed By: #### H EMDF, CMP3, QWAL, ETOH4 ####[address] Erythrocytes (RBC) 4.26 10*6/uL Normal 3.80-5.20 [facility] Comment on above: Performed By: #### H EMDF, CMP3, QWAL, ETOH4 ####[address] Granulocytes/100 WBC (Bld) 54.6 % Normal 40.0-80.0 [facility] Comment on above: Performed By: #### H EMDF, CMP3, QWAL, ETOH4 ####[address] Hematocrit (HCT) 42.5 % Normal 35.0-47.0 [facility] Comment on above: Performed By: #### H EMDF, CMP3, QWAL, ETOH4 ####[address] Hemoglobin mass conc (Bld) 14.1 g/dL Normal 11.7-16.0 [facility] Comment on above: Performed By: #### H EMDF, CMP3, QWAL, ETOH4 ####[address] Lymphocytes 3.1 10*3/uL Normal 1.0-4.3 [facility] Comment on above: Performed By: #### H EMDF, CMP3, QWAL, ETOH4 ####[address] Lymphocytes/100 leukocytes 32.8 % Normal 20.0-40.0 [facility] Comment on above: Performed By: #### H EMDF, CMP3, QWAL, ETOH4 ####[address] MCH 33.1 pg Normal 26.0-34.0 [facility] Comment on above: Performed By: #### H EMDF, CMP3, QWAL, ETOH4 ####[address] MCHC mass conc (RBC) 33.2 % Normal 32.0-36.0 [facility] Comment on above: Performed By: #### H EMDF, CMP3, QWAL, ETOH4 ####[address] MCV 99.8 fL High 79.0-98.0 [facility] Comment on above: Performed By: #### H EMDF, CMP3, QWAL, ETOH4 ####[address] Monocytes 0.8 10*3/uL Normal 0.0-0.8 [facility] Comment on above: Performed By: #### H EMDF, CMP3, QWAL, ETOH4 ####[address] Monocytes/100 leukocytes 8.2 % Normal 2.0-10.0 [facility] Comment on above: Performed By: #### H EMDF, CMP3, QWAL, ETOH4 ####[address] [place], [place] Neutrophils 5.2 10*3/uL Normal 1.8-7.0 [facility] Comment on above: Performed By: #### H EMDF, CMP3, QWAL, ETOH4 ####[address] [place], [place] Platelet mean volume (PMV) 8.5 fL Normal 7.4-10.4 [facility] Comment on above: Performed By: #### H EMDF, CMP3, QWAL, ETOH4 ####[address] [place], [place] Platelets 380 10*3/uL Normal 140-440 [facility] Comment on above: Performed By: #### H EMDF, CMP3, QWAL, ETOH4 ####[address] [place], [place] WBC (Leukocytes) 9.6 10*3/uL Normal 3.6-10.7 [facility] Comment on above: Performed By: #### H EMDF, CMP3, QWAL, ETOH4 ####[address] [place], [place] Urinalysis,Macroon 8 Bilirubin (direct) Negative Normal Negative [facility] Comment on above: Performed By: #### U AMAC, DRGA4, HCGUR ####[address] [place], [place] Ketone,Urine Negative Normal Negative [facility] Comment on above: Performed By: #### U AMAC, DRGA4, HCGUR ####[address] [place], [place] Occult Blood,Ur Negative Normal Negative [facility] Comment on above: Performed By: #### U AMAC, DRGA4, HCGUR ####[address] [place], [place] Specific [place],Urine 1.015 Normal 1.005-1.030 [facility] Comment on above: Performed By: #### U AMAC, DRGA4, HCGUR ####[address] [place], [place] Total Protein,Urine Negative Normal Negative [facility] Comment on above: Performed By: #### U AMAC, DRGA4, HCGUR ####[address] [place], [place] Urine, appearance clear Normal Clear [facility] Comment on above: Performed By: #### U AMAC, DRGA4, HCGUR ####[address] [place], [place] Urine, color yellow Normal Lt. Yellow [facility] Comment on above: Performed By: #### U AMAC, DRGA4, HCGUR ####[address] [place], [place] Urine, glucose presence NORM Normal Negative [facility] Comment on above: Performed By: #### U AMAC, DRGA4, HCGUR ####[address] [place], [place] Urine, nitrite presence Negative Normal Negative [facility] Comment on above: Performed By: #### U AMAC, DRGA4, HCGUR ####[address] [place], [place] Urine, pH 5.0 Normal 5.0-8.0 [facility] Comment on above: Performed By: #### U AMAC, DRGA4, HCGUR ####[address] [place], [place] Urine, urobilinogen NORM Normal 0-1 [facility] Comment on above: Performed By: #### U AMAC, DRGA4, HCGUR ####[address] [place], [place] WBC (Leukocytes) Negative Normal Negative [facility] Comment on above: Performed By: #### U AMAC, DRGA4, HCGUR ####[address] [place], [place] hCG Qual Pregon 04-29-2018 hCG Qual Preg QUESTIONABLE Abnormal [facility] Comment on above: Result Comment: REF RANGE:Negative .... < 3Questionable Rpt 48-72 HrPositive ..... > 10 Performed By: #### H EMDF, CMP3, QWAL, ETOH4 ####[facility] [id number] [place] [address] Vital Signs Date Time Vital Sign Value Performing Clinician Facility 03-06-2025 11:36-0400 Heart rate 79 /min TIFFANY AHNSEN DO [address] [place] [address] 03-06-2025 11:36-0400 Respiratory rate 20 /min TIFFANY JADE DO [facility] 03-06-2025 11:35-0400 Body temperature 98.6 [degF] TIFFANY JADE DO [facility] 03-06-2025 11:35-0400 Diastolic Blood Pressure Non-Invasive 63 mm[Hg] TIFFANY HANSEN DO [facility] 03-06-2025 11:35-0400 Heart rate 82 /min TIFFANY JADE DO [facility] 03-06-2025 11:35-0400 Reason For Taking VItal Signs TIFFANY JADE DO [facility] 03-06-2025 11:35-0400 Respiratory rate 20 /min TIFFANY HANSEN DO [facility] 03-06-2025 11:35-0400 Systolic Blood Pressure Non-Invasive 90 mm[Hg] TIFFANY HANSEN DO [facility] 03-06-2025 08:04-0400 Heart rate 74 /min TIFFANY PABONERLY DO [facility] 03-06-2025 06:48-0400 Body temperature 98.06 [degF] TIFFANY JADE DO [facility] 03-06-2025 06:48-0400 Diastolic Blood Pressure Non-Invasive 75 mm[Hg] TIFFANY HANSEN DO [facility] 03-06-2025 06:48-0400 Heart rate 50 /min TIFFANY HANSEN DO [facility] 03-06-2025 06:48-0400 Reason For Taking VItal Signs TIFFANY HANSEN DO [facility] 03-06-2025 06:48-0400 Respiratory rate 20 /min TIFFANY HANSEN DO [facility] 03-06-2025 06:48-0400 Systolic Blood Pressure Non-Invasive 94 mm[Hg] TIFFANY HANSEN DO [facility] 03-06-2025 03:17-0400 Body temperature 97.88 [degF] TIFFANY HANSEN DO [facility] 03-06-2025 03:17-0400 Diastolic Blood Pressure Non-Invasive 61 mm[Hg] TIFFANY HANSEN DO [facility] 03-06-2025 03:17-0400 Reason For Taking VItal Signs TIFFANY HANSEN DO [facility] 03-06-2025 03:17-0400 Systolic Blood Pressure Non-Invasive 99 mm[Hg] TIFFANY HANSEN DO [facility] 03-05-2025 16:10-0400 Heart rate 79 /min TIFFANY HANSEN DO [facility] 03-05-2025 11:26-0400 Heart rate 68 /min TIFFANY HANSEN DO [facility] 03-05-2025 08:39-0400 Heart rate 75 /min TIFFANY JADE DO [facility] 03-05-2025 06:20-0400 Heart rate 81 /min TIFFANY JADE DO [facility] 03-04-2025 16:31-0400 Heart rate 90 /min TIFFANY JADE DO [facility] 03-04-2025 07:59-0400 Body height 165.1 cm TIFFANY JADE DO [address] [place] [address] 03-04-2025 07:59-0400 Body temperature 98.06 [degF] TIFFANY JADE DO [facility] 03-04-2025 07:59-0400 Body weight 58.3 kg TIFFANY JADE DO [facility] 03-04-2025 07:59-0400 Body weight 21.39 kg/m2 TIFFANY JADE DO [facility] 03-04-2025 05:51-0400 Body weight 58.3 kg TIFFANY JADE DO [facility] 12-14-2024 06:46-0500 Body height 162.[address] MILO ESTEBAN MD [facility] 12-14-2024 06:46-0500 Body temperature 97.88 [degF] DR MILO ESTEBAN MD [facility] 12-14-2024 06:46-0500 Body weight 50.[address] MILO ESTEBAN MD [facility] 12-14-2024 06:46-0500 Diastolic Blood Pressure Non-Invasive 82 mm[Hg] DR MILO ESTEBAN MD [facility] 12-14-2024 06:46-0500 Heart rate 77 /min DR MILO ESTEBAN MD [facility] 12-14-2024 06:46-0500 Respiratory rate 16 /min DR MILO ESTEBAN MD [facility] 12-14-2024 06:46-0500 Systolic Blood Pressure Non-Invasive 122 mm[Hg] DR MILO ESTEBAN MD [facility] 05-09-2023 13:16-0400 Body height 160 cm Mely Kendrick PA-C Work Phone: [facility] 05-09-2023 13:16-0400 Body weight 57.15 kg Mely Kendrick PA-C Work Phone: [facility] 05-09-2023 13:16-0400 Diastolic blood pressure 90 mm[Hg] Meyl Kendrick PA-C Work Phone: [facility] 05-09-2023 13:16-0400 Heart rate 83 /min Mely Kendrick PA-C Work Phone: [facility] 05-09-2023 13:16-0400 Respiratory rate 18 /min Mely Kendrick PA-C Work Phone: [facility] 05-09-2023 13:16-0400 SaO2% (BldA) [Mass fraction] 94 % Mely Kendrick PA-C Work Phone: [facility] 05-09-2023 13:16-0400 Systolic blood pressure 140 mm[Hg] Mely Kendrick PA-C Work Phone: [facility] 05-08-2023 12:01-0400 Body weight 56.25 kg Oly Older GIFT MANAGER.TELECOMMUNICATOR SUPERVISOR Work Phone: [facility] 05-08-2023 12:01-0400 Diastolic blood pressure 88 mm[Hg] Oly Older GIFT MANAGER.TELECOMMUNICATOR SUPERVISOR Work Phone: [facility] 05-08-2023 12:01-0400 Heart rate 90 /min Oly Older GIFT MANAGER.TELECOMMUNICATOR SUPERVISOR Work Phone: [facility] 05-08-2023 12:01-0400 Respiratory rate 20 /min Oly Older GIFT MANAGER.TELECOMMUNICATOR SUPERVISOR Work Phone: [facility] 05-08-2023 12:01-0400 Systolic blood pressure 134 mm[Hg] Oly Older GIFT MANAGER.TELECOMMUNICATOR SUPERVISOR Work Phone: [facility] 01-07-2023 21:11-0500 Body temperature 98.6 [degF] Armando Benavides DO Work Phone: [facility] 01-07-2023 21:11-0500 Heart rate 76 /min Armando Wynncordelljules POOLE Work Phone: [facility] 01-07-2023 21:11-0500 Respiratory rate 18 /min Armando Wynngabriel Work Phone: [facility] 01-07-2023 21:11-0500 SaO2% (BldA) [Mass fraction] 94 % Armando Wynncordelljules POOLE Work Phone: [facility] 01-07-2023 20:00-0500 Diastolic blood pressure 84 mm[Hg] Armando Wynncordelljules POOLE Work Phone: [facility] 01-07-2023 20:00-0500 Systolic blood pressure 161 mm[Hg] Armando Benavides Work Phone: [facility] 01-07-2023 17:39-0500 Body height 165.1 cm Armando Wynngabriel Work Phone: [facility] 01-07-2023 17:39-0500 Body mass index (BMI) [Ratio] 21.63 kg/m2 Armando Wynngabriel Work Phone: [facility] 01-07-2023 17:39-0500 Body weight 58.97 kg Armando Kingsleygabriel Work Phone: [facility] 01-07-2023 12:34-0500 Body temperature 98.2 [degF] Dr. Ulises Hermosillo Work Phone: 7(205)181-607202 [place] [address] 01-07-2023 12:34-0500 Diastolic blood pressure 55 mm[Hg] Dr. Ulises Hermosillo Work Phone: 2(953)279-736602 [place] [address] 01-07-2023 12:34-0500 Heart rate 79 /min Dr. Ulises Hermosillo Work Phone: 5(351)623-576002 [place] [address] 01-07-2023 12:34-0500 Respiratory rate 18 /min Dr. Ulises Hermosillo Work Phone: 1(689)498-225502 [place] [address] 01-07-2023 12:34-0500 SaO2% (BldA) [Mass fraction] 90 % Dr. Ulises Hermosillo Work Phone: 2(329)811-452502 [place] [address] 01-07-2023 12:34-0500 Systolic blood pressure 121 mm[Hg] Dr. Ulises Hermosillo Work Phone: 1(487)608-579602 [place] [address] 01-07-2023 09:58-0500 Inhaled oxygen flow rate 2 L/min Dr. Ulises Hermosillo Work Phone: 0(452)610-554402 [place] [address] 01-07-2023 06:00-0500 Body mass index (BMI) [Ratio] 21.9 kg/m2 Dr. Ulises Hermosillo Work Phone: 8(011)832-721702 [place] [address] 01-07-2023 06:00-0500 Body weight 59.[address] Ulises Hermosillo Work Phone: 5(723)390-108402 [place] [address] 01-03-2023 10:39-0500 Body height 165.[address] Ulises Hermosillo Work Phone: 4(718)267-481802 [place] [address] 01-02-2023 21:43-0500 Body temperature 98.4 [degF] Dr. Ulises Hermosillo Work Phone: 1(570)040-161102 [place] [address] 01-02-2023 21:43-0500 Diastolic blood pressure 87 mm[Hg] Dr. Ulises Hermosillo Work Phone: [facility] 01-02-2023 21:43-0500 Heart rate 96 /min Dr. Ulises Hermosillo Work Phone: [facility] 01-02-2023 21:43-0500 Inhaled oxygen flow rate 2 L/min Dr. Ulises Hermosillo Work Phone: [facility] 01-02-2023 21:43-0500 Respiratory rate 24 /min Dr. Ulises Hermosillo Work Phone: [facility] 01-02-2023 21:43-0500 SaO2% (BldA) [Mass fraction] 96 % Dr. Ulises Hermosillo Work Phone: [facility] 01-02-2023 21:43-0500 Systolic blood pressure 118 mm[Hg] Dr. Ulises Hermosillo Work Phone: [facility] 01-02-2023 17:54-0500 Body height 165.[address] Ulises Hermosillo Work Phone: [facility] 01-02-2023 17:54-0500 Body mass index (BMI) [Ratio] 21.8 kg/m2 Dr. Ulises Hermosillo Work Phone: [facility] 01-02-2023 17:54-0500 Body weight 59.[address] Ulises Hermosillo Work Phone: [facility] 01-01-2023 14:08-0500 Diastolic blood pressure 83 mm[Hg] Oly Older GIFT MANAGER.TELECOMMUNICATOR SUPERVISOR Work Phone: [facility] 01-01-2023 14:08-0500 Heart rate 85 /min Loy Older GIFT MANAGER.TELECOMMUNICATOR SUPERVISOR Work Phone: [facility] 01-01-2023 14:08-0500 Systolic blood pressure 170 mm[Hg] Oly Older GIFT MANAGER.TELECOMMUNICATOR SUPERVISOR Work Phone: [facility] 01-01-2023 13:09-0500 Body weight 58.06 kg Oly Older GIFT MANAGER.TELECOMMUNICATOR SUPERVISOR Work Phone: [facility] 01-01-2023 13:09-0500 Respiratory rate 22 /min Oly Older GIFT MANAGER.TELECOMMUNICATOR SUPERVISOR Work Phone: [facility] 01-01-2023 13:09-0500 SaO2% (BldA) [Mass fraction] 97 % Oly Older GIFT MANAGER.TELECOMMUNICATOR SUPERVISOR Work Phone: [facility] 12-23-2022 16:29-0500 Diastolic Blood Pressure Non-Invasive [address] JOSE ROBERTO COMBS MD [facility] 12-23-2022 16:29-0500 Heart rate 84 /min DR JOSE ROBERTO COMBS MD [facility] 12-23-2022 16:29-0500 Respiratory rate 16 /min DR JOSE ROBERTO COMBS MD [facility] 12-23-2022 16:29-0500 Systolic Blood Pressure Non-Invasive [address] JOSE ROBERTO COMBS MD [facility] 12-23-2022 14:43-0500 Diastolic Blood Pressure Non-Invasive [address] JOSE ROBERTO COMBS MD [facility] 12-23-2022 14:43-0500 Heart rate 82 /min DR JOSE ROBERTO COMBS MD [facility] 12-23-2022 14:43-0500 Respiratory rate 18 /min DR JOSE ROBERTO COMBS MD [facility] 12-23-2022 14:43-0500 Systolic Blood Pressure Non-Invasive [address] JOSE ROBERTO COMBS MD [facility] 12-23-2022 13:50-0500 Body temperature 96.98 [degF] DR JOSE ROBERTO COMBS MD [facility] 12-23-2022 13:50-0500 Diastolic Blood Pressure Non-Invasive [address] JOSE ROBERTO COMBS MD [facility] 12-23-2022 13:50-0500 Heart rate 89 /min DR JOSE ROBERTO COMBS MD [facility] 12-23-2022 13:50-0500 Respiratory rate 18 /min DR JOSE ROBERTO COMBS MD [facility] 12-23-2022 13:50-0500 Systolic Blood Pressure Non-Invasive [address] JOSE ROBERTO COMBS MD [facility] 11-26-2022 12:48-0500 Body weight 57.61 kg Isauro Asher MD Work Phone: [facility] 11-26-2022 12:48-0500 Diastolic blood pressure 84 mm[Hg] Isauro Asher MD Work Phone: [facility] 11-26-2022 12:48-0500 Heart rate 98 /min Isauro Asher MD Work Phone: [facility] 11-26-2022 12:48-0500 Respiratory rate 20 /min Isauro Asher MD Work Phone: [facility] 11-26-2022 12:48-0500 SaO2% (BldA) [Mass fraction] 99 % Isauro Asher MD Work Phone: [facility] 11-26-2022 12:48-0500 Systolic blood pressure 120 mm[Hg] Isauro Asher MD Work Phone: [facility] 10-26-2022 19:30-0500 Diastolic Blood Pressure Non-Invasive 93 1 JEOVANY TAYLOR MD [facility] 10-26-2022 19:30-0500 Heart rate 97 /min JEOVANY TAYLOR MD [facility] 10-26-2022 19:30-0500 Respiratory rate 20 /min JEOVANY TAYLOR MD [facility] 10-26-2022 19:30-0500 Systolic Blood Pressure Non-Invasive 167 1 JEOVANY TAYLOR MD [facility] 10-26-2022 19:00-0500 Diastolic Blood Pressure Non-Invasive 92 1 JEOVANY TAYLOR MD [facility] 10-26-2022 19:00-0500 Heart rate 93 /min JEOVANY TAYLOR MD [facility] 10-26-2022 19:00-0500 Respiratory rate 18 /min JEOVANY TAYLOR MD [facility] 10-26-2022 18:37-0500 Heart rate 94 /min JEOVANY TAYLOR MD [facility] 10-26-2022 18:37-0500 Respiratory rate 22 /min JEOVANY TAYLOR MD [facility] 10-26-2022 18:31-0500 Diastolic Blood Pressure Non-Invasive 82 1 JEOVANY TAYLOR MD [facility] 10-26-2022 18:31-0500 Systolic Blood Pressure Non-Invasive 153 1 JEOVANY TAYLOR MD [facility] 10-26-2022 16:25-0500 Body temperature 96.8 [degF] JEOVANY TAYLOR MD [facility] 10-02-2022 10:02-0500 Body height 162.1 cm Doron Self DO Work Phone: [facility] 10-02-2022 10:02-0500 Body weight 58.97 kg Doron Self DO Work Phone: [facility] 10-02-2022 10:02-0500 Diastolic blood pressure 87 mm[Hg] Doron Self DO Work Phone: [facility] 10-02-2022 10:02-0500 Heart rate 86 /min Doron Self DO Work Phone: [facility] 10-02-2022 10:02-0500 SaO2% (BldA) [Mass fraction] 96 % Doron Self DO Work Phone: [facility] 10-02-2022 10:02-0500 Systolic blood pressure 155 mm[Hg] Doron Self DO Work Phone: [facility] 09-05-2022 16:28-0400 Body weight 59.88 kg Ulises Hermosillo MD Work Phone: [facility] 09-05-2022 16:28-0400 Diastolic blood pressure 82 mm[Hg] lUises Hermosillo MD Work Phone: [facility] 09-05-2022 16:28-0400 Heart rate 95 /min Ulises Hermosillo MD Work Phone: [facility] 09-05-2022 16:28-0400 SaO2% (BldA) [Mass fraction] 98 % Ulises Hermosillo MD Work Phone: [facility] 09-05-2022 16:28-0400 Systolic blood pressure 132 mm[Hg] Ulises Hermosillo MD Work Phone: [facility] 08-31-2022 13:22-0400 Body weight 58.51 kg Oly Older GIFT MANAGER.TELECOMMUNICATOR SUPERVISOR Work Phone: [facility] 08-31-2022 13:22-0400 Diastolic blood pressure 82 mm[Hg] Oly Older GIFT MANAGER.TELECOMMUNICATOR SUPERVISOR Work Phone: [facility] 08-31-2022 13:22-0400 Heart rate 86 /min Oly Older GIFT MANAGER.TELECOMMUNICATOR SUPERVISOR Work Phone: [facility] 08-31-2022 13:22-0400 Respiratory rate 18 /min Oly Older GIFT MANAGER.TELECOMMUNICATOR SUPERVISOR Work Phone: [facility] 08-31-2022 13:22-0400 Systolic blood pressure 125 mm[Hg] Oly Older GIFT MANAGER.TELECOMMUNICATOR SUPERVISOR Work Phone: [facility] 07-31-2022 14:17-0400 Body weight 60.33 kg Nicole Kenny APRN.TELECOMMUNICATOR SUPERVISOR Work Phone: [facility] 07-31-2022 14:17-0400 Diastolic blood pressure 82 mm[Hg] Nicole Kenny APRN.TELECOMMUNICATOR SUPERVISOR Work Phone: [facility] 07-31-2022 14:17-0400 Heart rate 89 /min Nicole Kenny APRN.TELECOMMUNICATOR SUPERVISOR Work Phone: [facility] 07-31-2022 14:17-0400 SaO2% (BldA) [Mass fraction] 98 % Nicole Kenny APRN.TELECOMMUNICATOR SUPERVISOR Work Phone: [facility] 07-31-2022 14:17-0400 Systolic blood pressure 148 mm[Hg] Nicole Kenny APRN.TELECOMMUNICATOR SUPERVISOR Work Phone: [facility] 06-06-2022 10:11-0400 Body height 162.1 cm Margaret Kasper MD Work Phone: [facility] 06-06-2022 10:11-0400 Body weight 58 kg Margaret Kasper MD Work Phone: [facility] 06-06-2022 10:11-0400 Diastolic blood pressure 84 mm[Hg] Margaret Kasper MD Work Phone: [facility] 06-06-2022 10:11-0400 Heart rate 77 /min Margaret Kasper MD Work Phone: [facility] 06-06-2022 10:11-0400 SaO2% (BldA) [Mass fraction] 96 % Margaret Kasper MD Work Phone: [facility] 06-06-2022 10:11-0400 Systolic blood pressure 173 mm[Hg] Margaret Kasper MD Work Phone: [facility] 05-11-2022 13:40-0400 Body weight 58.06 kg Ulises Hermosillo MD Work Phone: [facility] 05-11-2022 13:40-0400 Diastolic blood pressure 78 mm[Hg] Ulises Hermosillo MD Work Phone: [facility] 05-11-2022 13:40-0400 Heart rate 99 /min Ulises Hermosillo MD Work Phone: [facility] 05-11-2022 13:40-0400 Respiratory rate 24 /min Ulises Hermosillo MD Work Phone: [facility] 05-11-2022 13:40-0400 SaO2% (BldA) [Mass fraction] 95 % Ulises Hermosillo MD Work Phone: [facility] 05-11-2022 13:40-0400 Systolic blood pressure 118 mm[Hg] Ulises Hermosillo MD Work Phone: [facility] 05-05-2022 10:56-0400 Respiratory rate 16 /min DR EBTINA GODDARD MD [facility] 05-05-2022 10:48-0400 Body temperature 97.7 [degF] DR BETINA GODDARD MD [facility] 05-05-2022 10:48-0400 Diastolic blood pressure 75 mm[Hg] DR BETINA GODDARD MD [facility] 05-05-2022 10:48-0400 Heart rate 76 /min DR BETINA GODDARD MD [facility] 05-05-2022 10:48-0400 Reason For Taking VItal Signs DR BETINA GODDARD MD [facility] 05-05-2022 10:48-0400 Respiratory rate 16 /min DR BETINA GODDARD MD [facility] 05-05-2022 10:48-0400 Systolic blood pressure 116 mm[Hg] DR BETINA GODDARD MD [facility] 05-05-2022 07:33-0400 Body temperature 97.88 [degF] DR BETINA GODDARD MD [address] [place] [address] 05-05-2022 07:33-0400 Diastolic blood pressure 71 mm[Hg] DR BETINA GODDARD MD [address] [place] [address] 05-05-2022 07:33-0400 Heart rate 71 /min DR BETINA GODDARD MD [address] [place] [address] 05-05-2022 07:33-0400 Mean blood pressure 88 mm[Hg] DR BETINA GODDARD MD [facility] 05-05-2022 07:33-0400 Reason For Taking VItal Signs DR BETINA GODDARD MD [facility] 05-05-2022 07:33-0400 Respiratory rate 16 /min DR BETINA GODDARD MD [facility] 05-05-2022 07:33-0400 Systolic blood pressure 122 mm[Hg] DR BETINA GODDARD MD [facility] 05-05-2022 06:43-0400 Heart rate 77 /min DR BETINA GODDARD MD [facility] 05-04-2022 23:22-0400 Diastolic blood pressure 64 mm[Hg] DR BETINA GODDARD MD [facility] 05-04-2022 23:22-0400 Systolic blood pressure 124 mm[Hg] DR BETINA GODDARD MD [facility] 05-04-2022 20:59-0400 Body temperature 98.42 [degF] DR BETINA GODDARD MD [address] [place] [address] 05-04-2022 20:59-0400 Heart rate 73 /min DR BETINA GODDARD MD [address] [place] [address] 05-04-2022 14:47-0400 Mean blood pressure 92 mm[Hg] DR BETINA GODDARD MD [facility] 05-04-2022 14:47-0400 Reason For Taking VItal Signs DR BETINA GODDARD MD [facility] 05-04-2022 01:04-0400 Heart rate 81 /min DR BETINA GODDARD MD [facility] 05-04-2022 01:04-0400 Mean blood pressure 85 mm[Hg] DR BETINA GODDARD MD [facility] 05-03-2022 19:06-0400 Heart rate 94 /min DR BETINA GODDARD MD [facility] 05-03-2022 14:51-0400 Heart rate 82 /min DR BETINA GODDARD MD [facility] 05-02-2022 09:53-0400 Body height 165.[address] BETINA GODDARD MD [facility] 05-02-2022 09:53-0400 Body weight [address] BETINA GODDARD MD [facility] 05-02-2022 09:53-0400 Body weight 22.01 kg/m2 DR BETINA GODDARD MD [facility] 05-02-2022 06:28-0400 Diastolic blood pressure 86 mm[Hg] EMMANUEL FROMMELT DO [facility] 05-02-2022 06:28-0400 Heart rate 92 /min EMMANUEL FROMMELT DO [facility] 05-02-2022 06:28-0400 Respiratory rate 20 /min EMMANUEL FROMMELT DO [facility] 05-02-2022 06:28-0400 Systolic blood pressure 131 mm[Hg] EMMANUEL FROMMELT DO [facility] 05-02-2022 04:25-0400 Diastolic blood pressure 82 mm[Hg] EMMANUEL FROMMELT DO [facility] 05-02-2022 04:25-0400 Heart rate 95 /min EMMANUEL FROMMELT DO [facility] 05-02-2022 04:25-0400 Mean blood pressure 98 mm[Hg] EMMANUEL FROMMELT DO [facility] 05-02-2022 04:25-0400 Respiratory rate 22 /min EMMANUEL FROMMELT DO [facility] 05-02-2022 04:25-0400 Systolic blood pressure 129 mm[Hg] EMMANUEL FROMMELT DO [facility] 05-02-2022 03:42-0400 Diastolic blood pressure 84 mm[Hg] EMMANUEL FROMMELT DO [facility] 05-02-2022 03:42-0400 Heart rate 98 /min EMMANUEL THOMPSONT DO [facility] 05-02-2022 03:42-0400 Mean blood pressure 99 mm[Hg] EMMANUEL THOMPSONT DO [facility] 05-02-2022 03:42-0400 Respiratory rate 24 /min EMMANUEL THOMPSONT DO [facility] 05-02-2022 03:42-0400 Systolic blood pressure 130 mm[Hg] EMMANUEL SHAIKHMELT DO [facility] 05-02-2022 03:12-0400 Body temperature 98.24 [degF] EMMANUEL FROMMELT DO [facility] 05-02-2022 03:12-0400 Heart rate 130 /min EMMANUEL FROMMELT DO [facility] 05-02-2022 03:11-0400 Heart rate 124 /min EMMANUEL KILLIAN DO [facility] 04-30-2022 15:40-0400 Body weight 57.61 kg Tracy Ramires APRN.TELECOMMUNICATOR SUPERVISOR Work Phone: [facility] 04-30-2022 15:40-0400 Diastolic blood pressure 75 mm[Hg] Tracy Ramires GIFT MANAGER.TELECOMMUNICATOR SUPERVISOR Work Phone: [facility] 04-30-2022 15:40-0400 Heart rate 83 /min Tracy Ramires APRN.TELECOMMUNICATOR SUPERVISOR Work Phone: [facility] 04-30-2022 15:40-0400 Systolic blood pressure 138 mm[Hg] Tracy Ramires APRN.TELECOMMUNICATOR SUPERVISOR Work Phone: [facility] 03-13-2022 13:59-0400 Body height 165.1 cm Nicole Kenny APRN.TELECOMMUNICATOR SUPERVISOR Work Phone: [facility] 03-13-2022 13:59-0400 Body weight 60.92 kg Nicole Kenny APRN.TELECOMMUNICATOR SUPERVISOR Work Phone: [facility] 03-13-2022 13:59-0400 Diastolic blood pressure 76 mm[Hg] Nicole Kenny APRN.TELECOMMUNICATOR SUPERVISOR Work Phone: [facility] 03-13-2022 13:59-0400 Heart rate 81 /min Nicole Kenny APRN.TELECOMMUNICATOR SUPERVISOR Work Phone: [facility] 03-13-2022 13:59-0400 SaO2% (BldA) [Mass fraction] 96 % Nicole Kenny APRN.TELECOMMUNICATOR SUPERVISOR Work Phone: [facility] 03-13-2022 13:59-0400 Systolic blood pressure 157 mm[Hg] Nicole Kenny APRN.TELECOMMUNICATOR SUPERVISOR Work Phone: [facility] Encounters Encounter Date Encounter Type Care Provider Facility Start: 07-13-2025 ambulatory Ulises Cervantes ty:[facility] Start: 07-09-2025 End: 07-12-2025 Emergency department patient visit ARLEN STRONG GIFT MANAGER-TELECOMMUNICATOR SUPERVISOR Facility:[facility] Start: 07-09-2025 End: 07-12-2025 Observation ARLEN STRONG GIFT MANAGER-TELECOMMUNICATOR SUPERVISOR [facility] Start: 06-12-2025 End: 06-15-2025 Evaluation and management of inpatient DR JAE LUCIANO MD [facility] Start: 06-12-2025 End: 06-12-2025 Emergency department patient visit BRIAN AMOS DO [facility] Start: 05-16-2025 End: 05-24-2025 Evaluation and management of inpatient GWYN FERRARO GIFT MANAGER-[facility] Start: 03-05-2025 ambulatory EMMA DIBEN Facility:[facility] Start: 03-04-2025 End: 03-06-2025 Emergency department patient visit DR LEAH KHAN DO Facility:[facility] Start: 03-04-2025 End: 03-06-2025 Observation TIFFANY HANSEN DO [facility] Start: 02-19-2025 ambulatory EMMA M BERNICE DO Facil ity:A Start: 02-19-2025 End: 02-20-2025 Evaluation and management of inpatient EMMA DITCHEY Facility:[facility] Start: 02-03-2025 End: 02-03-2025 ambulatory EMMA DITCHEY Facility:[facility] Start: 12-25-2024 End: 12-25-2024 ambulatory EMMA DITCHEY Facility:[facility] Start: 12-25-2024 End: 12-25-2024 Patient encounter procedure XAVIER GONZALEZ MD [facility] Start: 12-14-2024 End: 12-14-[address] MILO ESTEBAN MD Facility: Start: 12-14-2024 End: 12-14-[address] MILO ESTEBAN MD [facility] Start: 12-11-2024 End: 12-11-2024 ambulatory EMMA QUEEN Facility:[facility] Start: 12-11-2024 End: 12-11-2024 Patient encounter procedure XAVIER GONZALEZ MD [facility] Start: 10-23-2024 End: 10-27-[address] ULISES HERMOSILLO MD Facility:[facility] Start: 10-23-2024 End: 10-27-2024 Outreach Lab EMMA De [place] O EMBERBEN DO [facility] Start: 01-24-2024 Refill No Pcp GIFT MANAGER [facility] Comment on above: Refill Request Start: 12-23-2023 Refill Ulises ram MD Work Phone: [facility] Comment on above: Refill Request Start: 10-18-2023 Refill Ulises ram MD Work Phone: [facility] [place] Comment on above: Refill Request Start: 09-25-2023 Telephone encounter Ulises cheng MD Work Phone: [facility] Comment on above: Medication Problem Start: 06-13-2023 Telephone encounter [facility] Provider Renzo silver Management Comment on above: Future Appointment Start: 06-10-2023 Refill Ulises ram MD Work Phone: [facility] [place] Comment on above: Refill Request Medication clarifica tion Start: 06-06-2023 Refill Tracymehreen Joyner y GIFT MANAGER.TELECOMMUNICATOR SUPERVISOR Work Phone: Cardiology Comment on above: Refill Request Start: 05-28-2023 Orders Only Fifi Price er GIFT MANAGER.TELECOMMUNICATOR SUPERVISOR Work Phone: Pul[facility] Medicine Comment on above: Encounter for screen ing for lung cancer (Primary Dx); Tobacco use current Start: 05-10-2023 Telephone encounter Ulises cheng MD Work Phone: [facility] [place] Comment on above: Results Start: 05-09-2023 End: 05-09-2023 ambulatory MELY GRIFFIN Facility:[facility] Start: 05-09-2023 End: 05-09-2023 Patient encounter procedure Mely Griffin PA-C Work Phone: Pulmonary Medicine Comment on above: Stage 3 severe COPD by GOLD classification (HCC) (Primary Dx); Cigarette smoker; Lung nodules Start: 05-08-2023 End: 05-09-2023 ambulatory OLY OLDER Facility:[facility] Start: 05-08-2023 End: 05-08-2023 Subsequent hospital visit by physician Xr [facility] Work Phone: Radiology Comment on above: Chronic midline low back pain with sciatica, sciatica laterality unspecified [M54.40, G89.29] Start: 05-08-2023 End: 05-08-2023 Patient encounter procedure Oly Smith GIFT MANAGER.TELECOMMUNICATOR SUPERVISOR Work Phone: [facility] [place] Comment on above: Chronic midline low back pain with sciatica, sciatica laterality unspecified (Primary Dx); Lesion of left ear; Essential hypertension; Mixed hyperlipidemia; Chronic bronchitis, unspecified chronic bronchitis type (HCC); Recurrent major depression in partial remission (HCC); Coronary artery disease involving jamul coronary artery of jamul heart without angina pectoris Start: 04-16-2023 ambulatory Melissa Vital MA Navigate [facility] Comment on above: Population Health Na vigation Outreach ([facility] Start: 04-02-2023 End: 04-02-2023 ambulatory DORON SELF Facility:[facility] Start: 02-26-2023 Refill Isauro Asher MD Work Phone: Pulmonary Medicine Comment on above: Refill Request Start: 01-07-2023 End: 01-07-2023 Emergency department patient visit ARMANDO BENAVIDES [facility] Start: 01-07-2023 End: 01-07-2023 Emergency department patient visit Armando Smith Kennedy POOLE Work Phone: [facility] Comment on above: Dehydration (Primary Dx) Start: 01-06-2023 Non-patient / Non-visit Dr. Amie Hermosillo Work Phone: [facility] Start: 01-05-2023 Non-patient / Non-visit Dr. Amie Hermosillo Work Phone: [facility] Start: 01-04-2023 Non-patient / Non-visit Dr. Amie Hermosillo Work Phone: [facility] Start: 01-04-2023 Non-patient / Non-visit Dr. Amie Hermosillo Work Phone: [facility] Start: 01-03-2023 Non-patient / Non-visit Dr. Amie Hermosillo Work Phone: [facility] Start: 01-02-2023 Non-patient / Non-visit Dr. Amie Hermosillo Work Phone: [facility] Start: 01-02-2023 End: 01-07-2023 Evaluation and management of inpatient Dr. Ulises Hermosillo Work Phone: [facility] Start: 01-01-2023 End: 01-02-2023 [facility] Facility:[facility] Start: 01-01-2023 End: 01-01-2023 Patient encounter procedure Oly Older GIFT MANAGER.TELECOMMUNICATOR SUPERVISOR Work Phone: [facility] [place] Comment on above: Alcohol withdrawal s yndrome without complication (HCC) (Primary Dx) Start: 01-01-2023 Telephone encounter Diana delarosa BOTTLE CLEANER Work Phone: Adult Psychology Comment on above: Behavioral Health So cial Work Start: 01-01-2023 End: 01-01-2023 Subsequent hospital visit by physician Xr [facility] Work Phone: Radiology Comment on above: Hemoptysis [R04.2] Start: 12-23-2022 End: 12-23-2022 Emergency department patient visit JOSE ROBERTO COMBS MD Facility:B Start: 12-23-2022 End: 12-23-2022 Emergency department patient visit DR JOSE ROBERTO COMBS MD [facility] Start: 12-14-2022 Refill Ulises ram MD Work Phone: [facility] Comment on above: Refill Request Start: 11-26-2022 End: 11-26-2022 ambulatory ISAURO ASHER Facility:[facility] Start: 11-26-2022 End: 11-26-2022 Patient encounter procedure Isauro Asher MD Work Phone: Pulmonary Medicine Comment on above: Hemoptysis (Primary Dx); Stage 3 severe COPD by GOLD classification ([facility]); Cigarette smoker Start: 10-26-2022 End: 10-26-2022 [facility] Start: 10-26-2022 End: 10-26-2022 Emergency department patient visit JEOVANY TAYLOR MD [facility] Start: 10-02-2022 End: 10-02-2022 Patient encounter procedure Doron Self DO Work Phone: Vascular Surgery Comment on above: PAD (peripheral daxa ry disease) ([facility]) Start: 09-21-2022 Telephone encounter Doron Self DO Work Phone: Vasculary Surgery Comment on above: Patient Question Start: 09-19-2022 Telephone encounter Doron Self DO Work Phone: Vascular Surgery Comment on above: Orders Start: 09-05-2022 End: 09-05-2022 Patient encounter procedure Ulises Hermosillo MD Work Phone: [facility] [place] Comment on above: Thrush (oral) (Prima ry Dx); Prediabetes; Essential hypertension Start: 09-05-2022 ambulatory Ulises ram MD Work Phone: [facility] [place] Comment on above: Mouth/Lip Problem Start: 08-31-2022 End: 08-31-2022 Patient encounter procedure Olysky Smith GIFT MANAGER.TELECOMMUNICATOR SUPERVISOR Work Phone: [facility] [place] Comment on above: Situational anxiety (Primary Dx); Allergic conjunctivitis of both eyes; Recurrent major depression in partial remission (HCC); Essential hypertension; Coronary artery disease involving jamul coronary artery of jamul heart without angina pectoris; Chronic bronchitis, unspecified [...] 07-31-2022 Patient encounter procedure Nicole Kimimarcelle Kenny GIFT MANAGER.TELECOMMUNICATOR SUPERVISOR Work Phone: Pulmonary Medicine Comment on above: Lung nodules (Primar y Dx); Current smoker Start: 07-26-2022 ambulatory UNKNOWN PROVIDER Facili ty:[facility] Start: 07-20-2022 Refill Ulises ram MD Work Phone: [facility] Medicine [place] Comment on above: Refill Request Start: 07-13-2022 Telephone encounter Doron Self DO Work Phone: Vascular Surgery Comment on above: Appointment Start: 07-09-2022 End: 07-09-2022 ambulatory Respiratory Therapist [facility] Work Phone: Pulmonary Medicine Comment on above: Arrived Start: 07-09-2022 End: 07-09-2022 Patient encounter procedure Respiratory Therapist [facility] Work Phone: [facility] Start: 07-06-2022 Telephone encounter Margaret Kasper MD Work Phone: Pulmonary Medicine Comment on above: Orders Start: 06-14-2022 Refill Ulises ram MD Work Phone: [facility] [place] Comment on above: Refill Request Start: 06-06-2022 End: 06-06-2022 ambulatory Pulm Work Phone: Pulmonary Medicine Comment on above: Spirometry Start: 06-06-2022 End: 06-06-2022 Patient encounter procedure Pulm [facility] Work Phone: [facility] Comment on above: Asthma-COPD overlap syndrome (HCC) (Primary Dx); Wheezing; Smoking Start: 06-04-2022 Telephone encounter Ulises cheng MD Work Phone: [facility] [place] Comment on above: Aerochamber spacer Start: 05-31-2022 Telephone encounter Ulises cheng MD Work Phone: [facility] [place] Comment on above: Orders Start: 05-30-2022 Orders Only Nicole lang GIFT MANAGER.TELECOMMUNICATOR SUPERVISOR Work Phone: Pulmonary Medicine Comment on above: Tobacco use disorder (Primary Dx) Smoker (Primary Dx); Encounter for screening for malignant neoplasm of lung Start: 05-28-2022 Refill Tracy kirkland GIFT MANAGER.TELECOMMUNICATOR SUPERVISOR Work Phone: Cardiology Comment on above: Refill Request Start: 05-25-2022 Refill Ulises ram MD Work Phone: [facility] [place] Comment on above: Refill Request Start: 05-23-2022 Telephone encounter Tracy Ramires GIFT MANAGER.TELECOMMUNICATOR SUPERVISOR Work Phone: Cardiology Comment on above: Results Start: 05-21-2022 End: 05-21-2022 Patient encounter procedure Echocardiogram [facility] Work Phone: Cardiology Comment on above: DIAZ (dyspnea on exer tion) Start: 05-11-2022 End: 05-11-2022 Patient encounter procedure Ulises Hermosillo MD Work Phone: [facility] [place] Comment on above: Chronic bronchitis, unspecified chronic [...] management of inpatient DR BETINA GODDARD MD [facility] Start: 05-02-2022 End: 05-02-2022 Emergency department patient visit [facility] Facility:B Start: 05-02-2022 End: 05-02-2022 Emergency department patient visit [facility] DO [facility] Start: 04-30-2022 End: 04-30-2022 Patient encounter procedure Tracy Ramires GIFT MANAGER.TELECOMMUNICATOR SUPERVISOR Work Phone: Cardiology Comment on above: DIAZ (dyspnea on exer tion) (Primary Dx); Essential hypertension; Coronary artery disease involving jamul coronary artery of jamul heart without angina pectoris; Mixed hyperlipidemia; Smoker; Stenosis of carotid artery, unspecified laterality Start: 04-03-2022 Refill Ulises ram MD Work Phone: [facility] [place] Comment on above: Refill Request Start: 03-16-2022 Refill Eri Fu APRN.TELECOMMUNICATOR SUPERVISOR Work Phone: Pulmonary Medicine Comment on above: Refill Request Start: 03-13-2022 End: 03-13-2022 Patient encounter procedure Nicole Kenny GIFT MANAGER.TELECOMMUNICATOR SUPERVISOR Work Phone: Pulmonary Medicine Comment on above: Dyspnea on exertion (Primary Dx); Smoker; Encounter for screening for malignant neoplasm of lung Start: 03-01-2022 Refill Oly Smith GIFT MANAGER .TELECOMMUNICATOR SUPERVISOR Work Phone: [facility] [place] Comment on above: Refill Request Start: 10-10-2021 [facility] Start: 08-14-2021 [facility] Start: 08-14-2021 [facility] Start: 01-27-2021 End: 01-27-2021 Subsequent hospital visit by physician Xr [facility] [place] Work Phone: Radiology Comment on above: Chest pain, unspecif ied type [R07.9] Pain [R52] Start: 09-28-2019 End: 10-06-2019 Patient encounter status Xr [place] Work Phone: [facility] Start: 04-29-2018 Emergency department patient visit UNKNOWN PROVIDER [facility] Procedures Date Procedure Procedure Detail Performing Clinician Start: 07-09-2025 History of percutane ous transluminal coronary angioplasty ARLEN STRONG GIFT MANAGER-TELECOMMUNICATOR SUPERVISOR Start: 06-12-2025 History of percutane ous transluminal coronary angioplasty DR JAE LUCIANO MD Start: 05-17-2025 History of percutane ous transluminal coronary angioplasty GWYN FERRARO GIFT MANAGER-TELECOMMUNICATOR SUPERVISOR Start: 03-04-2025 History of percutane ous transluminal coronary angioplasty TIFFANY HANSEN DO Start: 05-08-2023 Radex spine lumbosac ral 2/3 views Oly Durbin GIFT MANAGER.TELECOMMUNICATOR SUPERVISOR Work Phone: Start: 05-08-2023 Lipid 1996 panel [...] QUADRIVALENT HIGH DOSE AGE 65+ Oly Older GIFT MANAGER.TELECOMMUNICATOR SUPERVISOR Work Phone: Start: 07-09-2022 Noninvasive ear/puls e oximetry multiple deter Margaret Kasper MD Work Phone: Start: 06-06-2022 Brncdilat rspse spmt ry pre&post-brncdilat admn Nicole Kenny GIFT MANAGER.TELECOMMUNICATOR SUPERVISOR Work Phone: Start: 05-21-2022 Echo tthrc r-t 2d w/ wom-mode compl spec&colr d Tracy E Sima GIFT MANAGER.TELECOMMUNICATOR SUPERVISOR Work Phone: Start: 08-25-2021 Cardiac catheterization GWYN FERRARO GIFT MANAGER-TELECOMMUNICATOR SUPERVISOR Comment on above: with stents Start: 01-27-2021 Radiologic exam chest 2 views Ulises Hermosillo MD Work Phone: Start: 01-27-2021 Radex hips bilateral with pelvis minimum 5 views Babatunde Lomeli MD Work Phone: Start: 04-03-2017 Colonoscopy Oly Older GIFT MANAGER.TELECOMMUNICATOR SUPERVISOR Work Phone: Cardiac catheterization TIFFANY HANSEN Comment on above: with stents Cervical (qualifier value) [facility] Comment on above: replacement of 2 dis cs Cholecystectomy [facility] Cholecystocecostomy [facility] Ear structure (body structure) DR MILO ESTEBAN MD Comment on above: left facial nerves r epair Hysterectomy [facility] Investigation of tra nsfusion reaction Dr. Ulises Hermosillo Work Phone: None (qualifier value) [facility] Respiratory microbial culture Dr. Ulises Hermosillo Work Phone: Tonsillectomy [facility] Upper limb structure (body structure) [facility] Comment on above: left Plan of Treatment Date Care Activity Detail Author Start: 05-08-2028 Lipid 1996 panel - Serum or Plasma Lipid Screening [facility] Start: 05-08-2028 Lipid panel Lipid Screening [facility] Start: 05-08-2028 LIPID SCREEN LIPID SCREEN [facility] Start: 04-03-2027 Colonoscopy COLONOSCOPY [facility] Start: 04-03-2027 COLORECTAL CANCER SCREENING COLORECTAL CANCER SCREENING [facility] Start: 04-03-2027 Screening for malignant neoplasm of colon [facility] Start: 09-27-2026 LIPID SCREEN LIPID SCREEN [facility] Start: 05-08-2026 DIABETES SCREEN DIABETES SCREEN [facility] Start: 05-08-2026 Diabetes Screening Diabetes Screening [facility] Start: 10-19-2024 DIABETES SCREEN DIABETES SCREEN [facility] Start: 07-12-2024 Covid-19 Vaccine () Covid-19 Vaccine () [facility] Start: 07-12-2024 Covid-19 Vaccine ( season) Covid-19 Vaccine ( season) [facility] Start: 07-12-2024 Influenza vaccination [facility] Start: 05-08-2024 ANNUAL PCP TEAM CHRONIC DISEASE VISIT ANNUAL PCP TEAM CHRONIC DISEASE VISIT [facility] Start: 05-08-2024 Hepatitis B surface antibody level LDL CHOLESTEROL [facility] Start: 01-01-2024 ANNUAL PCP TEAM CHRONIC DISEASE VISIT ANNUAL PCP TEAM CHRONIC DISEASE VISIT [facility] Start: 11-11-2023 Advance Directive Discussion Advance Directive Discussion [facility] Start: 09-05-2023 ANNUAL PCP TEAM CHRONIC DISEASE VISIT ANNUAL PCP TEAM CHRONIC DISEASE VISIT [facility] Start: 08-31-2023 ANNUAL PCP TEAM CHRONIC DISEASE VISIT ANNUAL PCP TEAM CHRONIC DISEASE VISIT [facility] Start: 08-31-2023 COVID-19 VACCINE (2 - Pfizer series) COVID-19 VACCINE (2 - Pfizer series) [facility] Comment on above: Postponed from 12/12/2021 (Declined at t his time) Postponed from 01/16 (Declined at this time) Start: 08-31-2023 SHINGRIX VACCINE (1 of 2) SHINGRIX VACCINE (1 of 2) [facility] Comment on above: Postponed from 2005 (Declined at t his time) Start: 08-31-2023 Urine microalbumin profile DTAP,TDAP,TD (1 - Tdap) [facility] Comment on above: Postponed from 1974 (Declined at t his time) Start: 07-26-2023 Influenza vaccination LUNG CANCER SCREENING [facility] Start: 07-26-2023 Screening for malignant neoplasm of lung Lung Cancer Screening [facility] Start: 07-12-2023 Covid-19 Vaccine ( season) Covid-19 Vaccine () [facility] Start: 07-12-2023 Influenza vaccination [facility] Start: 05-11-2023 ANNUAL PCP TEAM CHRONIC DISEASE VISIT ANNUAL PCP TEAM CHRONIC DISEASE VISIT [facility] Start: 05-11-2023 BP CONTROLLED (<130/80) BP CONTROLLED (<130/80) [facility] Start: 05-08-2023 End: 07-08-2023 Comprehensive metabolic 2000 panel - Serum or Plasma [facility] Work Phone: Comment on above: Expected: 05/08/2023, Expires: 3 Start: 05-08-2023 End: 07-08-2023 LIPID PANEL, NONFASTING [facility] Work Phone: Comment on above: Expected: 05/08/2023, Expires: 3 Start: 04-21-2023 PNEUMOVAX AGE 65 AND OVER WITH 5YR LOOKBACK (#1) PNEUMOVAX AGE 65 AND OVER WITH 5YR LOOKBACK (#1) [facility] Start: 01-07-2023 Patient discharge [facility] Start: 01-07-2023 [facility] Start: 01-03-2023 Care regimes management [facility] Start: 01-03-2023 Notification of physician [facility] Start: 01-03-2023 [facility] Start: 01-03-2023 Following clinical pathway protocol [facility] Start: 01-02-2023 Assessment of risk of venous thromboembolism [facility] Start: 01-02-2023 Incentive spirometry [facility] Start: 01-02-2023 Inhalation therapy procedure [facility] Start: 01-02-2023 Insertion of catheter into peripheral vein [facility] Start: 01-02-2023 Introduction of urinary catheter [facility] Start: 01-02-2023 Measuring intake and output [facility] Start: 01-02-2023 Notification of physician [facility] Start: 01-02-2023 Oxygen therapy [facility] Start: 01-02-2023 Providing care according to standard [facility] Start: 01-02-2023 Provision of activity privileges [facility] Start: 01-02-2023 Referral to service [facility] Start: 01-02-2023 Tobacco use cessation education [facility] Start: 01-02-2023 Vital signs measurements [facility] Start: 01-02-2023 [facility] Start: 01-02-2023 Electrocardiographic procedure [facility] Start: 01-02-2023 [facility] Start: 01-02-2023 Verification routine [facility] Start: 01-02-2023 Admission procedure [facility] Start: 01-02-2023 Patient referral to dietitian [facility] Start: 11-26-2022 End: 01-26-2023 Alpha 1 antitrypsin [Mass/volume] in Serum or Plasma [id number] Lab Routine Stage 3 severe COPD by GOLD classification (HCC) Expected: 11/26/2022, Expires: 01/26/2023 [facility] Work Phone: Comment on above: Expected: 11/26/2022, Expires: 3 Start: 11-26-2022 End: 01-26-2023 CBC W Auto Differential panel - Blood CBC + DIFF Lab Routine Hemoptysis Expected: 11/26/2022, Expires: 01/26/2023 [facility] Work Phone: Comment on above: Expected: 11/26/2022, Expires: 3 Start: 11-11-2022 ADVANCE DIRECTIVE DISCUSSION ADVANCE DIRECTIVE DISCUSSION [facility] Start: 10-19-2022 ANNUAL PCP TEAM CHRONIC DISEASE VISIT ANNUAL PCP TEAM CHRONIC DISEASE VISIT [facility] Start: 09-27-2022 Hepatitis B surface antibody level LDL CHOLESTEROL [facility] Start: 08-11-2022 End: 10-11-2022 CBC panel - Blood by Automated count CBC Lab Routine PAD (peripheral artery disease) (HCC) Expected: 08/11/2022, Expires: 10/11/2022 [facility] Work Phone: Comment on above: Expected: 08/11/2022, Expires: 2 Start: 08-11-2022 End: 10-11-2022 Comprehensive metabolic 2000 panel - Serum or Plasma COMP METABOLIC PANEL Lab Routine PAD (peripheral artery disease) (HCC) Expected: 08/11/2022, Expires: 10/11/2022 [facility] Work Phone: Comment on above: Expected: 08/11/2022, Expires: 2 Start: 08-11-2022 End: 10-11-2022 Lipid 1996 panel - Serum or Plasma LIPID PANEL BASIC Lab Routine PAD (peripheral artery disease) (HCC) Expected: 08/11/2022, Expires: 10/11/2022 [facility] Work Phone: Comment on above: Expected: 08/11/2022, Expires: 2 Start: 07-12-2022 Influenza vaccination [facility] Start: 12-12-2021 COVID-19 VACCINE (2 - Pfizer 3-dose series) COVID-19 VACCINE (2 - Pfizer 3-dose series) [facility] Start: 12-12-2021 COVID-19 VACCINE (2 - Pfizer series) COVID-19 VACCINE (2 - Pfizer series) [facility] Start: 11-11-2021 ADVANCE DIRECTIVE DISCUSSION ADVANCE DIRECTIVE DISCUSSION [facility] Start: 01-06-2021 BP CONTROLLED (<130/80) BP CONTROLLED (<130/80) [facility] Start: 2020 BONE DENSITY BONE DENSITY [facility] Start: 2020 Bone Density Screening Bone Density Screening [facility] Start: 2020 Screening for osteoporosis Bone Density Screening [facility] Start: 04-21-2019 PNEUMOCOCCAL: 65+ (2 - PCV) PNEUMOCOCCAL: 65+ (2 - PCV) [facility] Start: 2015 RSV Vaccine (1 - 1-dose 60+ series) RSV Vaccine (1 - 1-dose 60+ series) [facility] Start: 2015 RSV Vaccine (1 - Risk 60-74 years 1-dose series) RSV Vaccine (1 - Risk 60-74 years 1-dose series) [facility] Start: 2010 Influenza vaccination LUNG CANCER SCREENING [facility] Start: 2005 Influenza vaccination LUNG CANCER SCREENING [facility] Start: 2005 SHINGRIX VACCINE (1 of 2) SHINGRIX VACCINE (1 of 2) [facility] Start: 2000 COLOGUARD (FIT-DNA) COLOGUARD (FIT-DNA) [facility] Start: [address] COLONOGRAPHY [facility] Start: 2000 FECAL OCCULT BLOOD FECAL OCCULT BLOOD [facility] Start: 2000 Screening for malignant neoplasm of colon [facility] Start: 2000 SIGMOIDOSCOPY SIGMOIDOSCOPY [facility] Start: 1985 Zoledronic acid therapy ALPHA-1 ANTITRYPSIN DEFICIENCY SCREENING [facility] Start: 1974 DTaP/Tdap/Td vaccine (1 - Tdap) DTaP/Tdap/Td vaccine (1 - Tdap) [email or web address] [facility] Start: 1974 Urine microalbumin profile [facility] Start: 1961 PNEUMOCOCCAL: 65+ (1 - PCV) PNEUMOCOCCAL: 65+ (1 - PCV) [facility] End: 10-10-2022 CT LUNG SCREEN WO IVCON CT LUNG SCREEN WO IVCON Radiology Routine Smoker Encounter for screening for malignant neoplasm of lung 1 Occurrences starting 05/30/2022 until 10/10/2022 [facility] Work Phone: Comment on above: 1 Occurrences starting 05/30/2022 until 10/10/2022 End: 06-26-2024 CT LUNG SCREEN WO IVCON CT LUNG SCREEN WO IVCON Radiology Routine Encounter for screening for lung cancer Tobacco use current 1 Occurrences starting 05/28/2023 until 06/26/2024 [facility] Work Phone: Comment on above: 1 Occurrences starting 05/28/2023 until 06/26/2024 End: 09-30-2023 Dxa bone density study 1/> sites axial skel DXA-AXIAL SKELETON Radiology Routine Screening for osteoporosis Asymptomatic menopause 1 Occurrences starting 08/31/2022 until 09/30/2023 [facility] Work Phone: Comment on above: 1 Occurrences starting 08/31/2022 until 09/30/2023 End: 04-30-2023 Echocardiography ECHO Cardiology Routine DIAZ (dyspnea on exertion) 1 Occurrences starting 04/30/2022 until 04/30/2023 [facility] Work Phone: Comment on above: 1 Occurrences starting 04/30/2022 until 04/30/2023 EKG 12 Lead EKG 12 Lead ECG STAT 01/07/2023 6:50 PM EST [facility] Work Phone: End: 04-12-2023 LUNG DIFFUSION CAPACITY (DLCO) LUNG DIFFUSION CAPACITY (DLCO) PFT Routine Dyspnea on exertion 1 Occurrences starting 03/13/2022 until 04/12/2023 [facility] Work Phone: Comment on above: 1 Occurrences starting 03/13/2022 until 04/12/2023 End: 08-05-2023 OXIMETRY WITH AMBULATION OXIMETRY WITH AMBULATION PFT Routine SOB (shortness of breath) 1 Occurrences starting 07/06/2022 until 08/05/2023 [facility] Work Phone: Comment on above: 1 Occurrences starting 07/06/2022 until 08/05/2023 Patient referral [facility] Work Phone: End: 05-11-2023 PVR LEG SHERIN VAS LAB PVR LEG SHERIN VAS LAB Vascular Lab Routine PAD (peripheral artery disease) (HCC) 1 Occurrences starting 05/11/2022 until 05/11/2023 [facility] Work Phone: Comment on above: 1 Occurrences starting 05/11/2022 until 05/11/2023 End: 09-21-2023 PVR LEG SHERIN VAS LAB PVR LEG SHERIN VAS LAB Vascular Lab Routine Peripheral arterial disease (HCC) 1 Occurrences starting 09/21/2022 until 09/21/2023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 transfer to SNF. Pt angry with profanities, emotional support provided. TORI Sin in to see patient with update on process. PRN ativan administered per orders. Pt states she is considering leaving and going home today. Pt educated on plan of care and need for SNF services. PROFESSOR OF SPANISH Emma made aware. Digitally Signed by Nayana Gudino RN on 05/22/2025 12:24 PM [facility] [id number] Note Date of Service 05/22/2025 Chief Complaint [...] patient that she cannot go to the residential for a skilled stay until her insurance company gives approval. Likewise, they should pay her hospital bill because they are holding up this process. She is requestingto speak to the social services counselor. She is aware that the social services counselor is coming in today but we are [...] by EMMA DEMARCO on 05/22/2025 11:25 AM [facility] [id number] Note Date of Service 05/21/2025 Chief Complaint [...] approve her for a skilled stay at [facility]. If we do not get precert [...] by EMMA DEMARCO on 05/21/2025 04:16 PM [facility]07-07-2025 Note. MICRO - Microbiology PROCEDURE: [...] Locations *1: This test was performed at: [address], [address] [place], [place] [address]-07-2025 Note. MICRO - Microbiology PROCEDURE: Legionella Urine [...] Locations *1: This test was performed at: [address], [address] [place], [place] [address]-07-2025 Evaluation + Plan noteExtracted from: Title:History and Physical Author:ARLEN STRONG APRN-TELECOMMUNICATOR SUPERVISOR Date:05/17/25 1. Acute exacerbation of chr onic [...] agreeable to people coming into her home. 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 [...] Date:07/30/2025 10:00:00 AM Scheduled Provider:EMMA QUEEN DO Location:[facility] Appointment Type: OV Future Scheduled Tests Laboratory* Basic Metabolic Panel 01/11/25 * N-Terminal proBNP 01/11/25 Radiology* MRI Cardiac Morphology & Func W+W/O Cont 02/23/25 * CT Low Dose Lung Cancer Screening (LDCT) 03/10/25 [facility] 07-07-2025 Note Date of Service 05/17/25 Chief Complaint Arrives via EMS with c/o SOB from home History of Present Illness 69-year-old female with past medical history significant for COPD, hypertension, hyperlipidemia, PAD, CAD s/p PCI, cardiomyopathy (LVEF 30% 12/2024), TBI, depression, anxiety, GERD, hepatitis C, tobacco use, chronic respiratory failure on 2 L nasal cannula. Patient presented to [facility] emergency department 05/16/2025 with increasing dyspnea. No [...] agreeable to people coming into her home. 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 [...] Ongoing Alcohol use disorder Asthma 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 artery Cardiomyopathy COPD with chronic bronchitis Depression, [...] Constant Order Digitally Signed by ARLEN STRONG APRN-TELECOMMUNICATOR SUPERVISOR on 05/17/2025 12:41 PM Digitally Signed by SHAUNA VALDEZ DO on 05/17/2025 06:07 PM [place] [address]-06-2025 Note* Exam Date Time Procedure Performing Provider Status 05/16/25 9:11 PM EKG [ED AOH] - CV BRIAN TRINIDAD DO; Aut h (Verified) ECG Final Report Sinus rhythm Biatrial enlargement Probable left ventricular hypertrophy Nonspecific T abnormalities, lateral leads Baseline wander in lead(s) V2,V3 Electronic Signature: AMOSBRIAN DO 05/16/2025 21:26:27 [facility]07-06-2025 Note* Exam Date Time Procedure Performing Provider Status 05/16/25 8:02 PM XR Chest 1 View ANTHONY MERIDA MD; [facility] (Verified) [id number] ORIGINAL EXAMINATION: ONE XRAY VIEW OF THE [...] 05/16/2025 8:27:46 PM Ordering Provider: BRIAN TRINIDAD [facility]04-26-2025 Hospital Discharge instructions Patient Education [...] oxygen Your health care provider or a customer service representative teacher from your general medical practitioner company will show you how touse your [...] not move around. Follow instructions from your general medical practitioner company about how to safely secure your tank. Make sure you have enough oxygen for the amount of time you will be away from home. If you are planning air travel, contact the airline to find out if they allow the use of an approved portable oxygen concentrator. You may also need documents from your health care provider and general medical practitioner company before you travel. General safety tips [...] Summary Your health care provider or a customer service representative teacher from your general medical practitioner company will show you how touse your [...] 01/17/2005 Document Revised: 04/16/2019 Document Reviewed: 05/21/2017 Eversnap Patient Education 2020 [employer]. 03/06/2025 11:50:46 Chronic Obstructive Pulmonary Disease, Otgo-pn-Wpoz Chronic Obstructive Pulmonary Disease Chronic obstructive pulmonary [...] Follow these instructions at home: Medicines Take owhm-ofa-akitkdg and prescription medicines only as told by [...] keep yourself as healthy as possible. Take zcxx-sow-husgvcz and prescription medicines only as told by your doctor. If you smoke, stop. Smoking makes the problem worse. This information is not intended to replace advice given to you by your health care provider. Make sure you discuss any questions you have with your health care provider. Document Released: 04/15/2009 Document Revised: 10/10/2018 Document Reviewed: 12/02/2017 ElseRun3D Patient Education 2020 E[employer]. Follow Up Care 03/04/2025 05:49:38 With:EMMA QUEEN DO Address: [address] [place] [phone] When:3-5 days Comments:Please call to schedule your post-hospital follow-up appointment. [facility] 04-26-2025 Note Discharge Instructions Thank you for allowing [facility] to assist you with your healthcare needs. The following is importantdischarge information regarding your hospital visit. Your Care Team [facility] Your Diagnosis 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 artery Cardiomyopathy Chronic obstructive pulmonary disease IGOR [...] should change your mind you can call [facility] at [phone]. You indicated that you would be interested in assisted living facility. [facility] has an assisted living and they also have Medicaid waiver. Their phone number is [phone]. You should be able tocall them on Saturday for more information. Scheduled Follow-Up Appointments Appointment Type When With Where Contact Information StatusCT Thorax Screening w/o Contrast 03/10/2025 04:00 PM EDT [facility] [phone] Confirmed PC OV 07/30/2025 10:00 AM EDT EMMA QUEEN DO [address] [phone] Confirmed Follow Up Appointments Follow Up with EMMA QUEEN DO When:Within 3-5 days Where:[address] [place] [phone] Additional Information: Please call to schedule your [...] a day Duration: 30 Days Pickup at [facility]/pharmacy #[id number] 03/06 New predniSONE (prednisone 10mg tab (TAPER)) Taper 53-58-42-03-40-20-10-5 mg x 1 day until gone by mouth Once a day (in the morning) Duration: 8 Days Pickup at [facility]acy [id number] 03/06 Unchanged albuterol (albuterol MDI (90 mcg/ inh) CFC free inhalation aerosol) 2 puff(s) by inhalation Four (4) times a day as needed for as needed for wheezing COPD with chronic bronchitis Pickup at [facility]/pharmacy #[id number] 03/06 Unchanged albuterol (albuterol 0.63 mg/ 3 mL (0.021%) inhalation solution) 3 Milliliter by inhalation Four (4) times a day Unchanged amLODIPine (amLODIPine 5 mg oral tablet) 1 tab(s) by mouth Once a day 03/06 Unchanged aspirin (aspirin 81 mg oral tablet, chewable) 81 Milligram Chewed Once a day 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 03/06 Unchanged clopidogrel (clopidogrel 75 mg [...] bedtime Psychophysiologic insomnia 08pm 03/05 Pharmacy Information [facility]/pharmacy #[id number]: [address], [place] [phone] Please take this list to your next [...] may report side effects to FDA at [phone]. What other drugs will affect clopidogrel? Sometimes it is not safe to use certain medications at the same time. Some drugs can affect your blood levels of other drugs you take, which may increase side effects or make the medications less effective. Tell your doctor about all your other medicines, especially: a stomach acid electric cell tender such as omeprazole, Nexium, or Prilosec; an antidepressant such as citalopram, fluoxetine, sertraline, Cymbalta, Effexor, Lexapro, Pristiq, or Prozac; rifampin; a blood thinner--warfarin, Coumadin, Jantoven; or NSAIDs (nonsteroidal anti-inflammatory drugs)--aspirin, ibuprofen (Advil, Motrin), naproxen (Aleve), celecoxib, diclofenac, indomethacin, meloxicam, and others. This list is not complete. Other drugs may affect clopidogrel, including prescription and ufox-ccc-krzipeq medicines, vitamins, and herbal products. Not all [...] to ensure that the information provided by [employer]. ('Multum') is accurate, up-to-date, and complete, but no guarantee is made to that effect. Drug information contained herein may be time sensitive. [employer] information has been compiled for use by healthcare practitioners and consumers in the [place] and therefore [employer] does not warrant that uses outside of the [place] are appropriate, unless specifically indicated otherwise. Sage[employer] drug information does not endorse drugs, diagnose patients or recommend therapy. Sage[employer]ests drug information isan informational resource designed to [...] effective or appropriate for any given patient. [employer] does not assume any responsibility for any aspect of healthcare administered with the aid of information [employer] provides. The information contained herein is not intended to cover all possible uses, directions, precautions, warnings, drug interactions, allergic reactions, or adverse effects. If you have questions about the drugs you are taking, check with your doctor, nurse or pharmacist. Copyright 7333-1834 [employer]. Version: 18.01. Revision Date: 02/08/2021. Education Materials [...] oxygen Your health care provider or a customer service representative teacher from your general medical practitioner company will show you how touse your [...] not move around. Follow instructions from your general medical practitioner company about how to safely secure your tank. Make sure you have enough oxygen for the amount of time you will be away from home. If you are planning air travel, contact the airline to find out if they allow the use of an approved portable oxygen concentrator. You may also need documents from your health care provider and general medical practitioner company before you travel. General safety tips [...] Summary Your health care provider or a customer service representative teacher from your general medical practitioner company will show you how touse your [...] 01/17/2005 Document Revised: 04/16/2019 Document Reviewed: 05/21/2017 Eversnap Patient Education 2020 [employer] Inc. Chronic Obstructive Pulmonary Disease Chronic obstructive [...] Follow these instructions at home: Medicines Take iboe-xhz-rkihunc and prescription medicines only as told by [...] keep yourself as healthy as possible. Take akxz-yyq-genmerf and prescription medicines only as told by your doctor. If you smoke, stop. Smoking makes the problem worse. This information is not intended to replace advice given to you by your health care provider. Make sure you discuss any questions you have with your health care provider. Document Released: 04/15/2009 Document Revised: 10/10/2018 Document Reviewed: 12/02/2017 Eversnap Patient Education 2020 [employer]. Additional Information VACCINATE! IT SAVES LIVES! Members of the community who have not yet received the COVID-19 vaccine and would like to receive it can visit one of [facility] vaccine clinics. There are many vaccine clinic locations within the [facility]. For locations and available times, please visit https://gettheshot.coronavirus.[place].gov/. It is important to note that some COVID mobile vaccine clinics are held outdoors and may be canceled in rainy or stormy conditions. To learn more about pediatric vaccinations (ages 5-11), we invite you to visit the [facility] webpage. https://www.[facility].org/pages/7709-Qynuf-Dxortdlyqfw-Yzoztaewqs-Nllqz-Cqh stions.htmlTo learn more about the COVID-19 vaccine, we invite you to visit the CDC website for a list of frequently asked questions.https://www.cdc.gov/coronavirus/2019-ncov/vaccines/faq.html [facility] Patient Portal Access Instructions: Stay connected with your healthcare team and access your personal medical information anytime with the [facility] Patient Portal. Please follow the directions below to create your [facility] account: 1.Access the email account you provided upon registration to the hospital/physician office.2.Look for an invitation email from [facility].3.Open the email and access the invitation link: AcceptInvitation to [facility].4.Fill in the required randle to create your account. To access your account, visit [email or web address]. Click the blue button labeled "Access Patient Portal" and then log in with the username and password that you created in the steps above. You will be able to view your test results, lab results, a summary of your visits, upcoming appointments and more. There is also a convenient messaging option where you can send secure messages to your Image Metricsvider. In addition, you will have the ability to download any documents or summaries to your computer and/or send the information securely to a physician. Remember that your healthcare information is confidential, so carefully consider who you will allowto register on the [facility] Patient Portal for access to your information. You can also access the [facility] Patient Portal on the [facility] larissa. Simply click on "Patient Portal" and then log into your account. If you would like to receive a full copy of your medical records, please contact the [facility] Medical Records Department by calling [phone], Saturday through Saturday between 8 a.m. and [...] Call your local pharmacy or go to [email or web address] Technologies.Pretio Interactive/1X6Vh6c to find one close to you.3.Make use of household items: Use cat litter or old coffee grounds to dispose medications if other options arenot available. Mix your drugs with these household products, seal them in an airtight container andthrow it into the garbage. Call [facility]: [phone] to be sure your drugs can be [...] Oxygen Use, Adult Chronic Obstructive Pulmonary Disease, Ddtn-fb-Cszs Medication Leaflets Plavix My discharge plan and instructions have been reviewed and explained to me and I,STEVEN KOENIG understand my current condition and have read and understand these discharge instructions. I have received a written copy of the plan/instructions. If I have questions, I am aware that I should contact my doctor. Patient/Government Auditor Signature: Date/Time: Relationship to Patient: Witness Name/Signature: Date/Time: [facility]04-26-2025 Note Date of Service 03/05/2025 Chief Complaint COPD Subjective 69-year-old female with past medical history significant for COPD, hypertension, hyperlipidemia, PAD, CAD s/p PCI, cardiomyopathy (LVEF 30% 12/2024), TBI, depression, anxiety, GERD, hepatitis C, anxiety, tobacco use, chronic respiratory failure on 2 L nasal cannula. Patient presented to [facility] emergency department 03/04/2025 via EMS for increasing [...] by ARLEN STRONG on 03/06/2025 08:56 AM [facility]04-25-2025 Nurse Progress note Hospice nurse in [facility] to get patient and patients family educated on Hospice and get patient signed up with [facility]. At this time pt is refusing [...] Christina Logan RN on 03/05/2025 06:09 PM [facility]04-25-2025 Pastoral care Progress note Pastoral Care Note Entered On: 03/05/2025 9:50 EDT Performed On: 03/05/2025 9:48 EDT by Jatinder Turk Pastoral Care Type of Pastoral Visit : Initial visit Spiritual Care Visit Initiated by : Sports Clerk Spiritual Care Reason for Visit : General Spiritual Assessment : Not using [employer], Spiritual, not Baptism, Positive Image of God Spiritual Care Emotional [...] by Jatinder Turk on 03/05/2025 09:48 AM [facility]04-24-2025 Note Date of Service 03/04/2025 [...] 2 L nasal cannula. Patient presented to [facility] emergency department 03/04/2025 via EMS for increasing [...] Ongoing Alcohol use disorder Asthma 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 artery Cardiomyopathy COPD with chronic bronchitis Depression, [...] by ARLEN STRONG on 03/04/2025 03:24 PM [facility]04-24-2025 Evaluation + Plan noteExtracted from: [...] Appointments Appointment Date:03/10/2025 04:00:00 PM Scheduled Provider: Location:[facility] Appointment Type:CT Chest (Low Dose) Screening/CT Lung (L Appointment Date:07/30/2025 10:00:00 AM Scheduled Provider:EMMA QUEEN DO Location:[facility] Appointment Type:PC OV Future Scheduled Tests Laboratory* Basic Metabolic Panel 01/11/25 * N-Terminal proBNP 01/11/25 Radiology* MRI Cardiac Morphology & Func W+W/O Cont 02/23/25 * CT Low Dose Lung Cancer Screening (LDCT) 03/10/25 [facility] 04-24-2025 HCoV 229E RNA IVANA+non-probe Ql (Nph)Not Detected *NA* (03/04/25 10:09 AM)AH Auto Viro/Sero [id number] Note* Exam Date Time Procedure Performing Provider Status 03/04/25 6:21 AM XR Chest 1 View CLAUDE CAMPUZANO MD; Auth (Verified) [id number] ORIGINAL EXAMINATION: ONE XRAY VIEW OF THE [...] 03/04/2025 6:41:45 AM Ordering Provider: EMMANUEL KILLIAN [place] [address]-24-2025 Note* Exam Date Time Procedure Performing Provider Status 03/04/25 6:01 AM EKG [ED AOH] - CV EMMANUEL KILLIAN DO ; Auth (Verified) ECG Final Report Sinus rhythm Probable left atrial enlargement Probable left ventricular hypertrophy Anterior Q waves, possibly due to LVH Compared to ECG at 02/19/2025 01:15:39 BORDERLINE ECG Electronic Signature: EMMANUEL KILLIAN DO 03/04/2025 06:19:02 [place] [address]-16-2025 Note. MICRO - Microbiology PROCEDURE: Blood Culture [...] Locations *1: This test was performed at: [address], [address] [place], [place] [address]-16-2025 Note. MICRO - Microbiology PROCEDURE: Blood Culture [...] Locations *1: This test was performed at: [address], [address] [place], [place] [address]-11-2025 Note. MICRO - Microbiology PROCEDURE: Streptococcus Pneumoniae [...] Locations *1: This test was performed at: [address], [address] [place], [place] [address]-11-2025 Note. MICRO - Microbiology PROCEDURE: Legionella Urine [...] Locations *1: This test was performed at: [address], [address] [place], [place] [address]-03-2025 Hospital Discharge instructions Patient Education 12/14/2024 09:07:49 [...] Document Reviewed: 10/29/2014 ExitCare Patient Information 2015 [employer]. This information is not intended to replace [...] until you are awake and alert. Take ardf-njt-orjvwkt and prescription medicines only as told by [...] 08/18/2014 Document Revised: 10/10/2018 Document Reviewed: 02/16/2017 Eversnap Patient Education 2020 [employer]. Follow Up Care 11/30/2024 10:45:53 With:XAVIER GONZALEZ MD Address: [address] [place] [address] [address] [place] [id number]- When:01/18/2025 10:00:00 [facility] 02-03-2025 Summary of episode note Discharge Instructions Thank you for allowing [facility] to assist you with your healthcare needs. The following is importantdischarge information regarding your hospital visit. Your Care Team EMMA QUEEN DO What to do next Scheduled Follow-Up Appointments Appointment Type When With Where Contact Information StatusEcho - Echocardiogram Adult 12/18/2024 02:00 PM EST [facility] [phone] Confirmed CV OV 01/18/2025 10:00 AM EDT [facility] Confirmed PC OV 01/21/2025 02:00 PM EDT EMMA QUEEN DO [address] [phone] Confirmed Follow Up Appointments Follow Up with XAVIER GONZALEZ MD When:01/18/2025 10:00 AM EDT Where:[address] [place] [address] [address] [place] [id number] The Following Activity and Diet Have Been [...] a day 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 Unchanged clopidogrel (clopidogrel 75 mg oral [...] Document Reviewed: 10/29/2014 ExitCare Patient Information 2015 [employer]. This information is not intended to replace [...] until you are awake and alert. Take sptq-ubo-ezyqmyq and prescription medicines only as told by [...] 08/18/2014 Document Revised: 10/10/2018 Document Reviewed: 02/16/2017 Eversnap Patient Education 2020 Eversnap Inc. Additional Information VACCINATE! IT SAVES LIVES! Members of the community who have not yet received the COVID-19 vaccine and would like to receive it can visit one of [facility] vaccine clinics. There are many vaccine clinic locations within the [facility]. For locations and available times, please visit [email or web address] It is important to note that some COVID mobile vaccine clinics are held outdoors and may be canceled in rainy or stormy conditions. To learn more about pediatric vaccinations (ages 5-11), we invite you to visit the [facility] webpage. [email or web address] learn more about the COVID-19 vaccine, we invite you to visit the CDC website for a list of frequently asked questions.https://www.cdc.gov/coronavirus/2019-ncov/vaccines/faq.html [facility] Patient Portal Access Instructions: Stay connected with your healthcare team and access your personal medical information anytime with the [facility] Patient Portal. Please follow the directions below to create your [facility] account: 1.Access the email account you provided upon registration to the hospital/physician office.2.Look for an invitation email from [facility].3.Open the email and access the invitation link: AcceptInvitation to [facility].4.Fill in the required randle to create your account. To access your account, visit [email or web address]. Click the blue button labeled "Access Patient [...] who you will allowto register on the [facility] Portal for access to your information. You can also access the [facility] Patient Portal on the [facility] larissa. Simply click on "Patient Portal" and then log into your account. If you would like to receive a full copy of your medical records, please contact the [facility] Medical Records Department by calling [phone], Saturday through Saturday between 8 a.m. and [...] Call your local pharmacy or go to [email or web address] to find one close to you.3.Make use of household items: Use cat litter or old coffee grounds to dispose medications if other options arenot available. Mix your drugs with these household products, seal them in an airtight container andthrow it into the garbage. Call [facility]: [phone] to be sure your drugs can be [...] aware that I should contact my doctor. Patient/Government Auditor Signature: Date/Time: Relationship to Patient: Witness Name/Signature: Date/Time: [facility] [id number] Discharge summary Date of Service 12/14/2024 Discharge [...] AM Digitally Signed by MILO MAJOR MD [facility] [id number] Miscellaneous Notes* Telephone Encounter - Nena Dozier RN - 01/24/2024 2:16 PM EDT Patient calls to ask if provider would be willing to call in one more albuterol inhaler until seen by PCP in [facility]. Appointment to establish care is 01/31/2024 but inhaler is completely out and patient is having trouble with wheezing/sob. Pended. Patient requests call back at [phone]. Nena Dozier RN documented in this encounterDoctors Hospital02-13-2024 Miscellaneous Notes* Telephone Encounter - Christina Greco LPN - 12/24/2023 9:41 AM EST Spoke with pt and she reports she is going to stay in [place] and will be getting an apt scheduled with Dr.Jacqueline Beaver. Does not have an apt yet Pt has been waiting for her insurance to start at the beginning of the month. Christina Greco LPN * Telephone Encounter - Oly Durbin APRN.CNP - 12/24/2023 9:03 AM EST Patient was advised in September that she needed to find new PCP in [place] if she was going to remain there. [...] you. Irena Cantor LPN. documented in this encounterDoctors Hospital12-08-2023 Miscellaneous Notes* Telephone Encounter - Ranulfo [...] notify patient. Telma Austin documented in this encounterDoctors Hospital11-16-2023 Miscellaneous Notes* Telephone Encounter - Sal Lee LPN - 09/26/2023 8:08 AM EST Pt notified of pcp's message. Pt states she will be coming back to [place]. Is just in [place] for a few months to help out [...] to report that she is currently in [place] and will be there for the next several months. Patient is going to run out of medication and is unable to transfer prescriptions. Patient asking if provider would send prescriptions to [facility] pharmacy in [place]. Pended 90 day request for review. Nena Dozier RN documented in this encounterDoctors Hospital09-08-2023 NotePatient Outreach (NETNAV) STEVEN KOENIG ([id number]) 1955 F Date Time Provider Department 07/19/23 MELISSA VITAL During your visit today, we recorded the following information about you: Melissa Vital MA 07/19/2023 3:08 PM Addendum POPULATION HEALTH NAVIGATION OUTREACH Action/ Spoke with patient. Patient declined scheduling annual wellness exam/htn appointment. Patient states in [place] right now. 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 Patient Identified by Name and : YES, via phone Outreach Outcome/Action Spoke to patient / parent / legal guardian: Patient declined Did you use a PCP flex slot to schedule this appointment? N/A Reason for Outreach Care Gap or Scheduling/Wellness visits Payer: Payor: [employer] / Plan: [employer] HMO / Product Type: HMO / Care [...] Population Health Navigation Outreach [3910] Cmt: Navigator [facility] outreach Prescriptions as of 07/19/2023 - [...] 1 TABLET BY MOUTH EVERY DAY - lwkexgrzxdu-ziarbutzc-lehmcwjw (TRELEGY ELLIPTA) 200-62.5-25 mcg inhalation powder Inhale [...] minutes, none*09/28/2019 07/07/2020 PAD (peripheral artery disease) ([facility]) [I73.9] 09/28/2019 Anxiety and depression [F41.9, F32.A] 10/06/2019 Hypomagnesemia [E83.42] 10/22/2019 10/23/2019 Asthma [J45.909] 07/07/2020 07/07/2020 Prediabetes [R73.03] 02/04/2021 Chest pain [R07.9] 05/08/2021 Other chest pain [R07.89] 05/08/2021 Stenosis of carotid artery [I65.29] 05/08/2021 Mixed hyperlipidemia [E78.2] 05/08/2021 Abnormal stress test [R94.39] 08/26/2021 Dyspnea on exertion [R06.09] 08/26/2021 Coronary artery disease involving jamul tolbert*09/27/2021 Lung nodule [R91.1] 08/31/2022 History of hemoptysis [Z87.898] 11/20/2022 Encounter Status:Closed by MELISSA VITAL on 07/19/23[facility]23 NoteHNO ID: [id number] Author: Melissa Vital MA Service: ? Author Type: Artist Color Separation Type: Progress Notes Filed: 07/19/2023 3:08 PM Note Text: POPULATION HEALTH NAVIGATION OUTREACH Action/FYI Spoke with patient. Patient declined scheduling annual wellness exam/htn appointment. Patient states in [place] right now. 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 Patient Identified by Name and : YES, via phone Outreach Outcome/Action Spoke to patient / parent / legal guardian: Patient declined Did you use a PCP flex slot to schedule this appointment? N/A Reason for Outreach Care Gap or Scheduling/Wellness visits Payer: Payor: [employer] / Plan: [employer] HMO / Product Type: HMO / Care Gap Reviewed:: Annual Wellness visit Controlling Blood Pressure Flu Vaccine Reminder: Reminder note to check Health Maintenance for items below Health Maintenance items due: BONE DENSITY Never done BP CONTROLLED (<130/80) due on 01/06/2021 INFLUENZA(1) due on 07/12/2023 Navigation Signature: Melissa Vital MA July 19, 2023 10:53 [facility]08-03-2023 Miscellaneous Notes* Telephone Encounter - Elizabeth Ly Ma - 06/13/2023 4:23 PM EDT Patient contacted via telephone regarding upcoming NEW patient appointment with Dr. Harris on 06/14/23. Patient informed of the following: [facility] your upcoming appointment with Dr. Harris. To avoid a delay in your care, please bring any radiology [facility] that [facility] to be [...] this appointment Appointment canceled. documented in this encounterDoctors Hospital08-03-2023 Miscellaneous Notes* Telephone Encounter - Irena [...] to be taking. Please call her at [phone]. documented in this encounterDoctors Hospital07-31-2023 Miscellaneous Notes* Telephone Encounter - Ranulfo [...] notify patient. Cailin Austin documented in this encounterDoctors Hospital07-28-2023 Miscellaneous Notes* Telephone Encounter - Jenn Almaraz, RN - 06/07/2023 8:18 AM EDT Pharmacy electronically requests the following refill(s) Requested Prescriptions Pending Prescriptions Disp Refills amLODIPine (NORVASC) 10 mg tablet [Pharmacy Med Name: AMLODIPINE BESYLATE 10 MG TAB] 90 tablet 3 Sig: TAKE 1 TABLET BY MOUTH EVERY DAY Jenn Almaraz, RN documented in this encounterDoctors Hospital06-30-2023 Miscellaneous Notes* Telephone Encounter - Hyacinth Suero LPN - 05/10/2023 2:59 PM EDT Spoke with pt gave information provided. P[t voices understanding. Will try cholesterol med uses [facility] in [place]. Please assist in scheduling with physical therapy [...] advise, Christina Franco RN documented in this encounterDoctors Hospital06-29-2023 NoteHNO ID: [id number] Author: Mely Griffin PA-C Service: ? Author Type: Physician Production Line Operator Type: Progress Notes Filed: 05/09/2023 2:05 [...] Alcohol use disorder 01/18/2016 Dr. Angie Jones, [facility] Anxiety 12/14/2015 Bipolar affective disorder, currently active ([facility]) 01/18/2016 Dr. Angie Jones, [facility] Chronic bronchitis ([facility]) 07/26/2016 Closed skull fracture ([facility]) 1994 [facility], [facility] Coronary artery disease DDD (degenerative disc disease), cervical Endometriosis 2007 Essential hypertension 12/14/2015 GERD (gastroesophageal reflux disease) 03/13/2019 History of colon polyps History of gastric ulcer 12/14/2015 HLD (hyperlipidemia) Injury of left facial nerve 1994 PAD (peripheral artery disease) ([facility]) 09/28/2019 Recurrent major depression in partial remission ([facility]) 12/14/2015 S/P drug eluting coronary stent placement 08/25/2021 LAD and Dg2 Spinal stenosis Allergies: No Known Allergies isosorbide mononitrate ER (IMDUR) 30 mg 24 hr tablet TAKE 1 TABLET BY MOUTH EVERY DAY traZODone (DESYREL) 100 mg tablet Take 2 tablets by mouth daily at bedtime. mwsinzdzbiq-foamknfhs-rfkfooxa (TRELEGY ELLIPTA) 200-62.5-25 mcg inhalation powder Inhale [...] disc surgery x 3 STENT PLACEMENT 08/25/2021 RONDEY LAD AND Dg2 TEAEC W/WO PATCH GRAFT DEEP PROFUNDA FEMORAL Right 10/20/2019 patch angioplasty, Right iliac stent TONSILLECTOMY PRIMARY/SECONDARY Tonsillectomy TOTAL ABDOMINAL HYSTERECT W/WO RMVL TUBE OVARY 1979 Hysterectomy, MAURA TOTAL FACIAL NERVE DECOMPRESSION AND/REPAIR Left 1989 [facility] I reviewed the past medical history, family history, social history and surgical history with changes noted above and updated in EMR. IMMUNIZATIONS Prevnar - 05/11/2022 Pneumovax - 04/21/2018, 09/13/2011 Influenza - 08/31/2022 CO (more content not included)...[facility]06-29-2023 History of Present illness Narrative* Mely [...] Anxiety 12/14/2015 Bipolar affective disorder, currently active ([facility]) 01/18/2016 [facility] Chronic bronchitis ([facility]) 07/26/2016 Closed skull fracture ([facility]) 1994 [facility], [facility] Coronary artery disease DDD (degenerative disc disease), cervical Endometriosis 2007 Essential hypertension 12/14/2015 GERD (gastroesophageal reflux disease) 03/13/2019 History of colon polyps History of gastric ulcer 12/14/2015 HLD (hyperlipidemia) Injury of left facial nerve 1994 PAD (peripheral artery disease) ([facility]) 09/28/2019 Recurrent major depression in partial remission ([facility]) 12/14/2015 S/P drug eluting coronary stent placement 08/25/2021 LAD and Dg2 Spinal stenosis Allergies: No Known Allergies isosorbide mononitrate ER (IMDUR) 30 mg 24 hr tablet TAKE 1 TABLET BY MOUTH EVERY DAY traZODone (DESYREL) 100 mg tablet Take 2 tablets by mouth daily at bedtime. tmrvnerhtnx-umxmzwayi-jwdmipix (TRELEGY ELLIPTA) 200-62.5-25 mcg inhalation powder Inhale [...] TOTAL FACIAL NERVE DECOMPRESSION &/REPAIR Left 1989 [facility] I reviewed the past medical history, [...] 57.2 kg (126 lb) LMP (LMP Unknown) ZgK995% BMI 22.32 kg/m Gen: No acute distress. [...] necessary. Mely Griffin PA-C documented in this encounterDoctors Hospital06-28-2023 NoteHNO ID: [id number] Author: RT Aziza(R) Service: ? Author Type: Layboy Tender Type: Progress Notes Filed: 05/08/2023 1:01 PM [...] BY: RT Aziza(R) May 08, 2023 12:52 [facility]06-28-2023 NoteHNO ID: [id number] Author: Oly Smith APRN.CNP Service: ? Author [...] Anxiety 12/14/2015 Bipolar affective disorder, currently active ([facility]) 01/18/2016 [facility] Chronic bronchitis ([facility]) 07/26/2016 Closed skull fracture ([facility]) 1994 [facility], [facility] Coronary artery disease DDD (degenerative disc disease), cervical Endometriosis 2007 Essential hypertension 12/14/2015 GERD (gastroesophageal reflux disease) 03/13/2019 History of colon polyps History of gastric ulcer 12/14/2015 HLD (hyperlipidemia) Injury of left facial nerve 1994 PAD (peripheral artery disease) ([facility]) 09/28/2019 Recurrent major depression in partial remission ([facility]) 12/14/2015 S/P drug eluting coronary [...] TOTAL FACIAL NERVE DECOMPRESSION AND/REPAIR Left 1989 [facility] ALLERGIES Patient has no known allergies. [...] 2 tablets by mouth daily at bedtime. ufercdsdxfv-hhacyxorg-lvqxesmr (TRELEGY ELLIPTA) 200-62.5-25 mcg inhalation powder Inhale [...] BY MOUTH EVERY DA (more content not included)...[facility]06-28-2023 History of Present illness Narrative* Oly Older, GIFT MANAGER.TELECOMMUNICATOR SUPERVISOR - 05/08/2023 12:24 PM EDT CC: Patient [...] Anxiety 12/14/2015 Bipolar affective disorder, currently active ([facility]) 01/18/2016 [facility] Chronic bronchitis ([facility]) 07/26/2016 Closed skull fracture ([facility]) 1994 [facility], [facility] Coronary artery disease DDD (degenerative disc disease), cervical Endometriosis 2007 Essential hypertension 12/14/2015 GERD (gastroesophageal reflux disease) 03/13/2019 History of colon polyps History of gastric ulcer 12/14/2015 HLD (hyperlipidemia) Injury of left facial nerve 1994 PAD (peripheral artery disease) ([facility]) 09/28/2019 Recurrent major depression in partial remission ([facility]) 12/14/2015 S/P drug eluting coronary [...] TOTAL FACIAL NERVE DECOMPRESSION &/REPAIR Left 1989 [facility] ALLERGIES Patient has no known allergies. [...] 2 tablets by mouth daily at bedtime. gyvbdphiddh-kawtvoonk-yxfksjzi (TRELEGY ELLIPTA) 200-62.5-25 mcg inhalation powder Inhale [...] F33.41 Stable 7. Coronary artery disease involving jamul coronary artery of jamul heart without angina pectoris- ICD9: 414.01, ICD10: I25.10 Follow-up with cardiology Prescription instructions reviewed with patient as applicable. Potential red flag symptoms discussed with the patient. Reviewed appropriate action plan to take if red flag symptoms occur. Patient agreeable to treatment plan. Oly Smith APRN.CNP documented in this encounterDoctors Hospital06-28-2023 Instructions* Patient Instructions* Oly Smith APRN.CNP - 05/08/2023 12:24 PM EDT [facility] dermatology [phone] documented in this encounterDoctors Hospital06-08-2023 NoteHNO ID: [id number] Author: Melissa Vital MA Service: ? Author Type: Artist Color Separation Type: Progress Notes Filed: 04/18/2023 10:01 AM [...] Melissa Vital MA April 18, 2023 9:59 [facility]06-06-2023 NotePatient Outreach (NETNAV) STEVEN KOENIG ([id number]) 1955 F Date Time Provider Department 04/16/23 [...] Bipolar affective disorder, currently active (HCC) - [id number] Last Billed 08/31/2022 F33.41 - Recurrent major depression in partial remission (HCC) - [id number] Last Billed 08/31/2022 Patient Identified by Name and : YES, via phone Outreach Outcome/Action Spoke to patient / parent / legal guardian: Patient will return the call or ask for return call Did you use a PCP flex slot to schedule this appointment? N/A Reason for Outreach HCC or suspected condition Payer: Payor: [employer] / Plan: [employer] HMO / Product Type: HMO / Care [...] Navigation Outreach [3910] Cmt: Navigator Kailash amaya [facility] gap outreach Prescriptions as of 04/18/2023 - isosorbide mononitrate ER (IMDUR) 30 mg 24 hr tablet TAKE 1 TABLET BY MOUTH EVERY DAY - predniSONE (DELTASONE) 10 mg tablet TAKE TWO DAILY FOR 5 DAYS THEN ONE DAILY FOR 10 DAYS - traZODone (DESYREL) 100 mg tablet Take 2 tablets by mouth daily at bedtime. - uydicjckuej-cpscrojlc-xzuzjgdx (TRELEGY ELLIPTA) 200-62.5-25 mcg inhalation powder Inhale [...] cardiovascular exam [Z01.810] 09/28/201909/12 (more content not included)...[facility]06-06-2023 NoteHNO ID: [id number] Author: Melissa Vital MA Service: ? Author Type: Artist Color Separation Type: Progress Notes Filed: 04/16/2023 11:48 AM Note Text: POPULATION HEALTH NAVIGATION OUTREACH Action/FYI Spoke with patient. Patient states will call back later to schedule. Annual wellness/htn/HCC Declined my chart Will discuss AD with PCP Navigator Kailash amaya HCC gap outreach F31.9 - Bipolar affective disorder, currently active (HCC) - [id number] Last Billed 08/31/2022 F33.41 - Recurrent major depression in partial remission (HCC) - [id number] Last Billed 08/31/2022 Patient Identified by Name and : YES, via phone Outreach Outcome/Action Spoke to patient / parent / legal guardian: Patient will return the call or ask for return call Did you use a PCP flex slot to schedule this appointment? N/A Reason for Outreach HCC or suspected condition Payer: Payor: K[employer]ASH [employer] / Plan: KAILASH [employer] HMO / Product Type: HMO / Care Gap Reviewed:: Annual Wellness visit Controlling Blood Pressure Reminder: Reminder note to check Health Maintenance for items below Health Maintenance items due: BONE DENSITY Never done BP CONTROLLED (<130/80) due on 01/06/2021 LDL CHOLESTEROL due on 09/27/2022 ADVANCE DIRECTIVE DISCUSSION Never done Navigation Signature: Melissa Vital MA April 16, 2023 11:39 [facility]06-06-2023 History of Present illness Narrative* Melissa Vital MA - 04/16/2023 11:39 AM EDT POPULATION HEALTH NAVIGATION OUTREACH Action/FYI Spoke with patient. Patient states will call back later to schedule. Annual wellness/htn/HCC Declined my chart Will discuss AD with PCP Navigator Kailash amaya HCC gap outreach F31.9 - Bipolar affective disorder, currently active (HCC) - [id number] Last Billed 08/31/2022 F33.41 - Recurrent major depression in partial remission (HCC) - [id number] Last Billed 08/31/2022 Patient Identified by Name and : YES, via phone Outreach Outcome/Action Spoke to patient / parent / legal guardian: Patient will return the call or ask for return call Did you use a PCP flex slot to schedule this appointment? N/A Reason for Outreach HCC or suspected condition Payer: Payor: [employer] / Plan: [employer]ASH [employer] HMO / Product Type: HMO / Care Gap Reviewed:: Annual Wellness visit Controlling Blood Pressure Reminder: Reminder note to check Health Maintenance for items below Health Maintenance items due: BONE DENSITY Never done BP CONTROLLED (<130/80) due on 01/06/2021 LDL CHOLESTEROL due on 09/27/2022 ADVANCE DIRECTIVE DISCUSSION Never done Navigation Signature: Melissa Vital MA April 16, 2023 11:39 AM documented in this encounterDoctors Hospital05-23-2023 NoteHNO ID: [id number] Author: Doron Self DO Service: Vascular Surgery Author Type: Physician Type: Progress Notes Filed: 04/09/2023 5:57 PM Note Text: NAME: STEVEN KOENIG CLINIC NO: [id number] DATE OF SERVICE: 04/02/2023 Subjective: Elle is [...] concerns. Doron Self D.O. KB/089 Audio #: [id number] Date Dictated: 04/02/2023 08:47:00 Date Typed: 04/06/2023 05:15:49 Date Revised:[facility]05-23-2023 NoteHNO ID: [id number] Author: Doron Self, DO Service: ? Author Type: Physician Type: Progress Notes Filed: 04/02/2023 10:58 AM Note Text: This office note has been dictated. Doron Self, DOCUniversity Hospitals [facility]04-19-2023 Miscellaneous Notes* Telephone Encounter - Doron Navarrete LPN - 02/27/2023 8:41 AM EDT Patient phones requesting refills as follows: Requested Prescriptions Pending Prescriptions Disp Refills predniSONE (DELTASONE) 10 mg tablet [Pharmacy Med Name: PREDNISONE 10 MG TABLET] 20 tablet 0 Sig: TAKE TWO DAILY FOR 5 DAYS THEN ONE DAILY FOR 10 DAYS Please review and advise. Doron Navarrete LPN documented in this encounterDoctors Hospital02-27-[address] Teague [facility] January 07, 2023 11:57am Note Date/Time January 07, 2023 11:47am [facility] Medical Records Department [address] [place] [address] Instructions for Home/Discharge Instructions 01/07/23 1143 MR#: [id number] Acct: [id number] Name: STEVEN KOENIG Rep #:[id number] : [...] can be placed): Home, Self Care 01/07/23 2717<Electronically signed by Siddhartha Teague DO>Siddhartha Teague DO CC: Dr. Linda Luque MD; Dr. Joel Sauer DO; Dr. Ulises Hermosillo MD ~ Signed [facility] Work Phone: [phone]) 865-281202-26-[address] Sauer [facility] January 06, 2023 12:31pm Note Date/Time January 06, 2023 7:53am [facility] Medical Records Department [address] [place] [address] Progress Note - Hospitalist 01/06/23 0749 MR#: [id number] Acct: [id number] Name: STEVEN KOENIG Rep #:[id number] : 1955 67 From: Joel Sauer DO PCP: Dr. Ulises Hermosillo MD Status:A DM IN Location: [place] [address] Reason for Visit Reason for Visit: Diagnoses [...] 01/03/23 10:58 AG (Rec: 01/03/23 10:58 AG [id number]) Nutrition Malnutrition Evidence of Malnutrition Exists Yes [...] to discharge. Charges/Coding Visit Charges Inpatient E&M: 50753 Subs Hosp L2 01/06/23 1231 <Electronically signed by Joel Sauer DO> Cosigner Signature (if applicable): CC: ~ Signed [facility] Work Phone: 1(487) 100-560902-26-[address] Luque [facility] January 06, 2023 3:54am Note Date/Time January 06, 2023 3:54am [facility] Medical Records Department [address] [place] [address] Progress Note - Hospitalist 01/06/23352 MR#: [id number] Acct: [id number] Name: STEVEN KOENIG Rep #:[id number] : 1955 67 From: Linda Luque MD PCP: Dr. Ulises Hermosillo MD Status:A DM IN Location: [place] [id number] Hospitalist Note Preliminary respiratory culture with strep pneumo, Rocephin added. 01/06/234 <Electronically signed by Linda Luque MD> Cosigner Signature (if applicable): CC: ~ Signed [facility] Work Phone: 1(977) 390-790602-25-[address] Sauer [facility] January 05, 2023 3:15pm Note Date/Time January 05, 2023 8:27am [facility] Medical Records Department [address] [place] [address] Progress Note - Hospitalist 01/05/2325 MR#: [id number] Acct: [id number] Name: STEVEN KOENIG Rep #:[id number] : 1955 67 From: Joel Sauer DO PCP: Dr. Ulises Hermosillo MD Status:A DM IN Location: [place] [address] Reason for Visit Reason for Visit: Diagnoses [...] 01/03/23 10:58 AG (Rec: 01/03/23 10:58 AG [id number]) Nutrition Malnutrition Evidence of Malnutrition Exists Yes [...] the . Charges/Coding Visit Charges Inpatient E&M: 72059 Subs Hosp L2 01/05/23 6935 <Electronically signed by Joel Sauer DO> Cosigner Signature (if applicable): CC: ~ Signed [facility] Work Phone: 1(623) 577-121102-24-[address] Sauer [facility] January 04, 2023 4:33pm Note Date/Time January 04, 2023 8:14am [facility] Medical Records Department [address] [place] [address] Progress Note - Hospitalist 01/04/23811 MR#: [id number] Acct: [id number] Name: STEVEN KOENIG Rep #:[id number] : 1955 67 From: Joel Sauer DO PCP: Dr. Ulises Hermosillo MD Status:A DM IN Location: [place] [address] Reason for Visit Reason for Visit: Diagnoses [...] 01/03/23 10:58 AG (Rec: 01/03/23 10:58 AG [id number]) Nutrition Malnutrition Evidence of Malnutrition Exists Yes [...] SCDs, Lovenox. Charges/Coding Visit Charges Inpatient E&M: 05218 Subs Hosp L2 01/04/23 1524 <Electronically signed [...] Cosigner Signature (if applicable): cc: ~* Signed [facility] Work Phone: 1(859) 805-138402-23-[address] Sauer [facility] January 03, 2023 3:30pm Note Date/Time January 03, 2023 8:33am [facility] Medical Records Department [address] [place] [address] Progress Note - Hospitalist 01/03/23828 MR#: [id number] Acct: [id number] Name: STEVEN KOENIG Rep #:[id number] : 1955 67 From: Joel Sauer DO PCP: Dr. Ulises Hermosillo MD Status:A DM IN Location: [place] [address] Reason for Visit Reason for Visit: Diagnoses [...] Clarity Clear, Urine pH 6.0, Ur Specific [place] 1.005, Urine Protein Negative, Urine Glucose (UA) [...] % (Auto) 50.1, Lymph % (Auto) 37.2, [place] % (Auto) 9.6, Eos % (Auto) 1.4, [...] 92.4 H, Lymph % (Auto) 5.4 L, [place] % (Auto) 0.9, Eos % (Auto) 0.0, [...] 21:10 EST Reading Location ID and State: [address] [place] [address] , Service support , Physical Exam Const [...] SCDs, Lovenox. Charges/Coding Visit Charges Inpatient E&M: 46329 Subs Hosp L2 01/03/23 1530 <Electronically signed by Joel Sauer DO> Cosigner Signature (if applicable): CC: ~ Signed [facility] Work Phone: 1(145) 854-804602-22-2023 History and physical note Author Dr. Luque [facility] January 02, 2023 9:37pm Note Date/Time January 02, 2023 9:19pm [facility] Medical Records Department [address] [place] [address] History & Physical Exam 01/02/232135 MR#: [id number] Acct: [id number] Name: STEVEN KOENIG Rep #:[id number] : [...] abuse, Tobacco use who presents to the [facility] ED on 01/02/23 with history of [...] rhythm with no acute evidence of ischemia. [facility] Medical History Alcohol abuse Anxiety and depression [...] Clarity Clear, Urine pH 6.0, Ur Specific [place] 1.005, Urine Protein Negative, Urine Glucose (UA) [...] % (Auto) 50.1, Lymph % (Auto) 37.2, [place] % (Auto) 9.6, Eos % (Auto) 1.4, [...] 21:10 EST Reading Location ID and State: [facility] / [place] , Service support , Assessment & Plan Assessment/Plan (1) Chest pain: (2) COPD exacerbation: (3) Desire for detoxification: PLAN: Plan The patient is a 67 y/o F w/ PMHx: COPD, HTN, HLD, Depression and Anxiety, EtOH abuse, Tobacco use who presents to the [facility] ED on 01/02/23 with history of [...] 76 minutes. Charges/Coding Visit Charges Inpatient E&M: 85468 Init Hosp L3 01/02/232136 <Electronically signed by Linda Luque MD> Cosigner Signature (if applicable): CC: Dr. Linda Luque MD; Dr. Ulises Hermosillo MD~ Signed [facility] Work Phone: 1(342) 358-468502-22-[address] Koroma [facility] January 02, 2023 9:25pm Note Date/Time January 02, 2023 6:55pm [facility] Medical Records Department [address] [place] [address] Emergency Department Summary 01/02/23 MR#: [id number] Acct: [id number] Name: STEVEN KOENIG Rep #:[id number] : [...] % (Auto) 50.1 Lymph % (Auto) 37.2 [place] % (Auto) 9.6 Eos % (Auto) 1.4 [...] Clarity Clear Urine pH 6.0 Ur Specific [place] 1.005 Urine Protein Negative Urine Glucose (UA) [...] (Auto) Neut % (Auto) Lymph % (Auto) [place] % (Auto) Eos % (Auto) Baso % [...] Color Urine Clarity Urine pH Ur Specific [place] Urine Protein Urine Glucose (UA) Urine Ketones [...] 21:10 EST Reading Location ID and State: [facility] / [place] , Service support , Discharge Plan Dx/Rx/DC Orders Clinical Impression: Chronic obstructive lung disease, Alcohol intoxication, Desire for detoxification, Chest pain Disposition Disposition: Acute Care Hospital [facility] What to do if you have Problems For any increased pain, shortness of breath, bleeding, nausea or vomiting, chestpain, or any unexpected problems, contact your Primary Care Provider. Call [facility] ([phone]) or report to the closest Emergency Room. Call 911 if necessary. 01/02/232124 <Electronically signed by Miah Koroma MD> Cosigner Signature (if applicable): CC: Dr. Ulises Hermosillo MD ~ Signed [facility] Work Phone: 1(248) 806-856802-22-[address] Koroma [facility] January 02, 2023 9:25pm Note Date/Time January 02, 2023 6:55pm [facility] Medical Records Department [address] [place] [address] Emergency Department Summary 01/02/23 MR#: [id number] Acct: [id number] Name: STEVEN KOENIG Rep #:[id number] : [...] % (Auto) 50.1 Lymph % (Auto) 37.2 [place] % (Auto) 9.6 Eos % (Auto) 1.4 [...] Clarity Clear Urine pH 6.0 Ur Specific [place] 1.005 Urine Protein Negative Urine Glucose (UA) [...] (Auto) Neut % (Auto) Lymph % (Auto) [place] % (Auto) Eos % (Auto) Baso % [...] Color Urine Clarity Urine pH Ur Specific [place] Urine Protein Urine Glucose (UA) Urine Ketones [...] Chest pain Disposition Disposition: Acute Care Hospital [facility] What to do if you have Problems For any increased pain, shortness of breath, bleeding, nausea or vomiting, chestpain, or any unexpected problems, contact your Primary Care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 disc disease), cervical Endometriosis 2007 Essential hypertension 12/14/2015 GERD (gastroesophageal reflux disease) 03/13/2019 History of colon polyps History of gastric ulcer 12/14/2015 HLD (hyperlipidemia) Injury of left facial nerve 1994 PAD (peripheral artery disease) ([facility]) 09/28/2019 Recurrent major depression in partial remission ([facility]) 12/14/2015 S/P drug eluting coronary [...] TOTAL FACIAL NERVE DECOMPRESSION &/REPAIR Left 1989 [facility] ALLERGIES Patient has no known allergies. MEDICATIONS traZODone (DESYREL) 100 mg tablet^Take 2 tablets by mouth daily at bedtime.^Disp: 60 tablet^Rfl: 5 gyajdloouwt-gjfkhmnru-oxageafj (TRELEGY ELLIPTA) 200-62.5-25 mcg inhalation powder^Inhale 1 [...] MG TABLET 5. Coronary artery disease involving jamul coronary artery of jamul heart without angina pectoris- ICD9: 414.01, ICD10: [...] CT in July. Follow-up with lung cancer research support specialist as advised 10. Screening for osteoporosis - ICD9: V82.81, ICD10: Z13.820 - DXA-AXIAL SKELETON 11. Asymptomatic menopause - ICD9: V49.81, ICD10: Z78.0 - DXA-AXIAL SKELETON Prescription instructions reviewed with patient as applicable. Potential red flag symptoms discussed with the patient. Reviewed appropriate action plan to take if red flag symptoms occur. Patient agreeable to treatment plan. Oly Smith APRN.CNP documented in this encounterDoctors Hospital10-06-2022 Miscellaneous Notes* Telephone Encounter - Ulises [...] to attend he can contact them at [phone] Option 3 to arrange. Nena Dozier RN documented in this encounterDoctors Hospital09-22-2022 Miscellaneous Notes* Telephone Encounter - Nevin Smith - 08/02/2022 12:39 PM EDT Please call patient to schedule testing prior to appt on 08/14/2022 Thank you documented in this encounterDoctors Hospital09-20-2022 Instructions* Patient Instructions* Karly Garcia APRN.CNP [...] please feel free to contact me at [phone]. Karly Garcia APRN.TELECOMMUNICATOR SUPERVISOR documented in this encounterDoctors Hospital09-20-2022 History of Present illness Narrative* Karly [...] daily. Per her last OV with her director medical science, Symbicort was advised to be discontinued as Trelegy was added on. Activity: Does light house work but has to stop in between chores to catch her breath. Gets SOB with showering or with walking from her bedroom to her kitchen. The patient does not require assistancewith normal activities of daily living. Modified Medical Research [place] Dyspnea Scale (MMRC) I stop for breath after walking about 100 yards or after a few minutes on level ground 3 History of respiratory exposures include: Occupational: None Environmental: Second had smoke exposure as a child Father and mother had lung cancer Past Medical History: PAST MEDICAL HISTORY Diagnosis Date Acute pancreatitis 2010 Anisha Cruz Alcohol use disorder 01/18/2016 Dr. Angie Jones, [facility] Anxiety 12/14/2015 Bipolar affective disorder, currently active ([facility]) 01/18/2016 Dr. Angie Jones, [facility] Chronic bronchitis ([facility]) 07/26/2016 Closed skull fracture ([facility]) 1994 [facility], [facility] Coronary artery disease DDD (degenerative disc disease), cervical Endometriosis 2007 Essential hypertension 12/14/2015 GERD (gastroesophageal reflux disease) 03/13/2019 History of colon polyps History of gastric ulcer 12/14/2015 HLD (hyperlipidemia) Injury of left facial nerve 1994 PAD (peripheral artery disease) ([facility]) 09/28/2019 Recurrent major depression in partial remission ([facility]) 12/14/2015 S/P drug eluting coronary [...] TOTAL FACIAL NERVE DECOMPRESSION &/REPAIR Left 1989 [facility] Family Hx: FAMILY HISTORY Problem Relation [...] which included preparing to see the patient, aqtz-lz-cbyw patient care, completing clinical documentation, obtaining and/or [...] are noted in bold/italics. Signature: Nicole Kenny APRN.TELECOMMUNICATOR SUPERVISOR Date: 07/31/2022 Time: 4:53 PM documented in this encounterDoctors Hospital09-15-2022 NoteHNO ID: [id number] Author: YASSINE Hatch Service: Radiology Author Type: [...] BY: YASSINE Hatch July 26, 2022 4:24 PMOhio[facility] [id number] Miscellaneous Notes* Telephone Encounter - Saranya Link [...] daily at bedtime. Authorizing Provider: DAT RODNEY wuzjagagyov-rusiclnnv-xklvyydm (TRELEGY ELLIPTA) 200-62.5-25 mcg inhalation powder 60 [...] pcp 05/11/22. Next appt is 08/13/22 with PROFESSOR OF SPANISH. * Telephone Encounter - Arlen Austin - 07/20/2022 11:25 AM EDT Patient has been identified by Yesname and date of : Requested Prescriptions Pending Prescriptions Disp Refills traZODone (DESYREL) 100 mg tablet 60 tablet 0 Sig: Take 2 tablets by mouth daily at bedtime. tuvikeawfpc-bltnhlasw-cvlbypzc (TRELEGY ELLIPTA) 200-62.5-25 mcg inhalation powder 60 Each 11 Sig: Inhale 1 Puff as instructed once daily. venlafaxine ER (EFFEXOR XR) 150 mg 24 hr capsule 90 capsule 0 Sig: Take 1 capsule by mouth once daily. RX INSTRUCTIONS: Patient aware RX will be sent to pharmacy. No need to notify patient. Arlen Avalos Pss documented in this encounterDoctors Hospital09-06-2022 Miscellaneous Notes* Telephone Encounter - Hyacinth Austin - 07/17/2022 2:02 PM EDT Left message to advise appointment with Dr Self has been moved up to August 4ht @ 10:15 in the [place] . * Telephone Encounter - Maritza De Los Santos - 07/13/2022 3:52 PM EDT Patient called back in regard to message left for her. Informed her that she needs to complete testing first before she has appt with Dr. Self. She verbalized understanding. I informed her of when her testing is on 07/26/2022 in [place] and rescheduled her appt with Dr. Self in [place] on 09/11/2022 since that was the soonest [...] her right leg. The soonest testing appt [facility] has available is 07/25/22. Patient is tentatively scheduled on thatday. Appt needs to be rescheduled. Discussed with patient she could come for the visit on 07/17/22 howeverthe testing is necessary to see if there is anything new going on since her last scan. Left patient a voicemail with this information, advised she could call the office for other appt options in [place]. documented in this [facility]08-29-20[facility] Procedure note* ASHLEY Cage - 07/09/2022 [...] walker used for stability. documented in this [facility]08-29-[facility] History of Present illness Narrative* ASHLEY Cage - 07/09/2022 3:29 PM EDT PULM FUNCTION SMARTBLOCK: Provider: Margaret Kasper MD Assisting Tech: ASHLEY Cage Oximetry - Ambulation: 1 documented in this [facility]08-26-2022 Miscellaneous Notes* Telephone Encounter - Margaret Kasper MD - 07/06/2022 11:29 AM EDT Order for oximetry documented in this [facility]08-04-2022 Miscellaneous Notes* Telephone Encounter - Irena [...] notify patient. Cailin Austin documented in this encounterDoctors Hospital07-27-2022 History of Present illness Narrative* Margaret [...] asthma since teenage, COPD, recently discharged from [facility] where she was treated for COPD exacerbation [...] hospital admissions: [facility] in [place] Medications: Symbicort, albuterol Most recent Radiology Most [...] No significant exposure Silica: No significant exposure Dickinson: No significant exposure Mold: No significant exposure Hot tub: No significant exposure Fumes: No significant exposure Metal dust: No significant exposure Beryllium: No significant exposure Dust: No significant exposure Medications: No relevant exposure for interstitial lung diseases PAST MEDICAL HISTORY Diagnosis Date Acute pancreatitis 2010 [facility] Alcohol use disorder [facility] Anxiety 12/14/2015 Bipolar affective disorder, currently active ([facility]) 01/18/2016 [facility] Chronic bronchitis ([facility]) 07/26/2016 Closed skull fracture ([facility]) 1994 [facility] Coronary artery disease DDD (degenerative disc disease), cervical Endometriosis 2007 Essential hypertension 12/14/2015 GERD (gastroesophageal reflux disease) 03/13/2019 History of colon polyps History of gastric ulcer 12/14/2015 HLD (hyperlipidemia) Injury of left facial nerve 1994 PAD (peripheral artery disease) ([facility]) 09/28/2019 Recurrent major depression in partial remission ([facility]) 12/14/2015 S/P drug eluting coronary [...] TOTAL FACIAL NERVE DECOMPRESSION &/REPAIR Left 1989 [facility] FAMILY HISTORY Problem Relation Age of [...] Take 1 tablet by mouth once daily. mokdhcilxlb-kltdpwlbs-ygvwrfge (TRELEGY ELLIPTA) 200-62.5-25 mcg inhalation powder Inhale [...] 400 QTC Calculation (Bazett) 450 Calculated P Welcome 82 Calculated R Welcome 65 Calculated T Welcome 69 Impression NORMAL SINUS RHYTHM NORMAL ECG Confirmed by DYLAN ROTH M.D. ([id number]) on 10/23/2021 11:14:32 AM Recent Results (from the past 32068 hour(s)) ECHO Collection Time: 05/21/22 3:26 PM [...] disease counseling. Margaret Kasper MD Staff, Respiratory [facility] CC: MD Zoya Jameson, Nicole Rojas, * documented in this encounterDoctors Hospital07-27-2022 History of Present illness Narrative* Paco Miguel RRT - 06/06/2022 9:47 AM EDT PULM FUNCTION SMARTBLOCK: Provider: Margaret Kasper MD Assisting Tech: Paco Miguel, ROBERT Spirometry w/BD: 1 DLCO: 1 documented in this encounterDoctors Hospital07-25-2022 Miscellaneous Notes* Telephone Encounter - Ranulfo Blackman Ma - 06/04/2022 12:50 PM EDT New order printed and faxed. Ranulfo Blackman Ma * Telephone Encounter - Oly Smith APRN.CNP - 06/04/2022 11:45 AM EDT See phone note from 05/31, this was faxed and then re faxed on 06/04 Oly Smith APRN.LINDA * Telephone Encounter - Jaylyn Caceres RN - 06/04/2022 10:07 AM EDT [facility] orders for the Aerochamber spacer, electronically signed by Animated Cartoons Painter. States she cannot accept this. Needs an actual prescription with name, addressand signature of provider. Please send actual prescription. Fax number [phone]. documented in this encounterDoctors Hospital07-22-2022 Miscellaneous Notes* Telephone Encounter - Ranulfo [...] be sent for inhaler spacer? Pharmacy is [facility]. See Message below in regards to portable oxygen tank. Please review and advise, Christina Franco RN * Telephone Encounter - Christina Franco RN - 05/31/2022 11:07 AM EDT Patient calls and is asking if provider can write orders for patient to have a smaller portable oxygen tank so it is easier for her to go places. She gets current supplies from [facility]. Please review and advise, Christina Franco RN documented in this encounterDoctors Hospital07-20-2022 Miscellaneous Notes* Addendum Note - Nicole Kenny APRN.CNP - 05/30/2022 9:06 AM EDT Addended by: NICOLE KENNY on: 05/30/2022 09:06 AM Modules accepted: Orders documented in this encounterDoctors Hospital07-19-2022 Miscellaneous Notes* Telephone Encounter - Tracy Alan LPN - 05/29/2022 7:04 AM EDT Patient's request for medication is as follows: Pending Prescriptions Disp Refills AMLODIPINE 10 MG TABLET 90 tablet 3 Sig: TAKE 1 TABLET BY MOUTH EVERY DAY BECKY: Yes Last seen 12/04/2021 in [place]. Follow up scheduled for 11/19/2022. Prescription(s) as above. Please process accordingly. Tracy Alan LPN documented in this encounterDoctors Hospital07-15-2022 Miscellaneous Notes* Telephone Encounter - Ranulfo [...] to the pharmacy. Please call patient at: [phone]. Telma Austin documented in this encounterDoctors Hospital07-14-2022 Miscellaneous Notes* Telephone Encounter - Manuela [...] valve disease. Thank you! documented in this encounterDoctors Hospital07-12-2022 Miscellaneous Notes* Result QuickNote - Tracy Ramires APRN.CNP - 05/22/2022 7:41 AM EDT Please call patient and notify her echocardiogram reveals stable LV function and no significant valve disease. Thank you! documented in this encounterDoctors Hospital07-01-2022 Instructions* Patient Instructions* Ulises Hermosillo MD - 05/11/2022 2:14 PM EDT FASTING BLOOD WORK IN 3 MONTHS. documented in this encounterDoctors Hospital07-01-2022 History of Present illness Narrative* Ulises [...] Hypertension Recurrent Major Depression in Partial Remission ([facility]) Bipolar Affective Disorder, Currently Active ([facility]) History of Alcohol Abuse Chronic bronchitis ([facility]) Spinal Stenosis, Lumbar Region Without Neurogenic Claudication Radiculopathy, Lumbar Region Smoker Gerd (Gastroesophageal Reflux Disease) Seasonal Allergies Pad (Peripheral Artery Disease) ([facility]) Anxiety and Depression Prediabetes Chest Pain Other Chest Pain Stenosis of Carotid Artery Mixed Hyperlipidemia Abnormal Stress Test Dyspnea On Exertion Coronary Artery Disease Involving [place] Coronary Artery of [place] Heart Without Angina Pectoris Social History Tobacco [...] BASIC Ulises Hermosillo MD documented in this encounterDoctors Hospital06-27-2022 Miscellaneous Notes* Telephone Encounter - Ranulfo [...] notify patient. Luci Austin documented in this encounterDoctors Hospital06-25-2022 Hospital Discharge instructions Patient Education 05/05/2022 [...] Follow these instructions at home: Medicines Take ullh-twx-dzvoqgl and prescription medicines (inhaled or pills) only [...] 08/07/2006 Document Revised: 10/10/2018 Document Reviewed: 12/02/2017 [employer] Patient Education 2020 [employer]. Follow Up Care 05/02[facility]2022 09:30:28 [facility] Address: When: Unknown Comments:[facility] will provide your home oxygen and equipment. Call them when you arrive home and they will deliver your oxygen concentrator to you. Their number is [phone]. With:ULISES HERMOSILLO MD Address: [address] [place] [address]- When:05/11/2022 13:40:00 Comments:The appointment on 05/07 has been moved to 05/11 @1:40 P.M to be with Dr. Hermosillo [facility] 06-22-2022 Evaluation + Plan noteExtracted from: [...] confirmed cardiac medications in addition to Plavix. [facility] 06-22-2022 SARS-CoV-2 (COVID-19) RNA IVANA+probe Ql (Nph) Negative (05/02/22 4:25 AM)AO Auto Urine [id number] Instructions* Patient Instructions* Tracy Ramires APRN.TELECOMMUNICATOR SUPERVISOR - 04/30/2022 3:57 PM EDT Images from [...] the health of your heart. Developed by [employer]. Published by [employer]. Copyright 2014 [employer] and/or one of its subsidiaries. All rights reserved. documented in this encounterDoctors Hospital06-20-2022 History of Present illness Narrative* Tracy [...] Alcohol use disorder 01/18/2016 Dr. Angie Jones, [facility] Anxiety 12/14/2015 Bipolar affective disorder, currently active ([facility]) 01/18/2016 Dr. Angie Jones, [facility] Chronic bronchitis ([facility]) 07/26/2016 Closed skull fracture ([facility]) 1994 [facility] Coronary artery disease DDD (degenerative disc disease), cervical Endometriosis 2007 Essential hypertension 12/14/2015 GERD (gastroesophageal reflux disease) 03/13/2019 History of colon polyps History of gastric ulcer 12/14/2015 HLD (hyperlipidemia) Injury of left facial nerve 1994 PAD (peripheral artery disease) ([facility]) 09/28/2019 Recurrent major depression in partial remission ([facility]) 12/14/2015 S/P drug eluting coronary [...] TOTAL FACIAL NERVE DECOMPRESSION &/REPAIR Left 1989 [facility] FAMILY HISTORY Problem Relation Age of [...] injection (DEFINITY) INTRAVENOUS DIRECTED PRN Tracy Ramires, GIFT MANAGER.TELECOMMUNICATOR SUPERVISOR sodium chloride 0.9 % (flush) 10 mL (BD POSIFLUSH) 10 mL INTRAVENOUS DIRECTED PRN Tracy Ramires, GIFT MANAGER.TELECOMMUNICATOR SUPERVISOR perflutren lipid microspheres 1.3 mL in NaCl (PF) 0.9% 10 mL injection (DEFINITY) INTRAVENOUS DIRECTED PRN Tracy Ramires, GIFT MANAGER.TELECOMMUNICATOR SUPERVISOR sodium chloride 0.9 % (flush) 10 mL (BD POSIFLUSH) 10 mL INTRAVENOUS DIRECTED PRN Tracy Ramires, GIFT MANAGER.TELECOMMUNICATOR SUPERVISOR Review of Systems Constitutional: Negative for chills, [...] LAD portion of the stent 3.7mm, with rastafari of blood flow, no residual stenosis. Assessment [...] 30, 2022, 3:36 PM documented in this encounterDoctors Hospital05-24-2022 Miscellaneous Notes* Telephone Encounter - Jasmine Ramos LPN - 04/03/2022 10:00 AM EDT Last see pcp PROFESSOR OF SPANISH 02/14/21. Next appt with PROFESSOR OF SPANISH 05/04/22. * Telephone Encounter - Cailin Simons [...] notify patient. Cailin Austin documented in this encounterDoctors Hospital05-03-2022 Instructions* Patient Instructions* Nicole Kenny APRN.TELECOMMUNICATOR SUPERVISOR - 03/13/2022 2:44 PM EDT Cigarette Logs [...] candy are also excellent oral substitutes. Phone [phone] ([phone]) as additional resource. CT Lung Screen Results [...] to endocrinology. Others Lung Cancer Screening hotline: [phone] Lung Cancer Screening [phone] Billing Questions: or [email or web address] Lung Cancer Screening Team: Linda Meyer CNP; Crystal Kenny CNP; Eri Cheung CNP; Agata Cruz CNP, Naz Shah PA-C: [phone] Bouchra Cuenca PA-C documented in this encounterDoctors Hospital05-03-2022 History of Present illness Narrative* iNcole Kenny, GIFT MANAGER.TELECOMMUNICATOR SUPERVISOR - 03/13/2022 2:10 PM EDT Images from [...] 50% of waking hrs. Modified Medical Research [place] Dyspnea Scale (MMRC) On level ground I [...] Alcohol use disorder 01/18/2016 Dr. Angie Jones, [facility] Anxiety 12/14/2015 Bipolar affective disorder, currently active ([facility]) 01/18/2016 Dr. Angie Jones, [facility] Chronic bronchitis ([facility]) 07/26/2016 Closed skull fracture ([facility]) 1994 [facility], [facility] Coronary artery disease DDD (degenerative disc disease), cervical Endometriosis 2007 Essential hypertension 12/14/2015 GERD (gastroesophageal reflux disease) 03/13/2019 History of colon polyps History of gastric ulcer 12/14/2015 HLD (hyperlipidemia) Injury of left facial nerve 1994 PAD (peripheral artery disease) ([facility]) 09/28/2019 Recurrent major depression in partial remission ([facility]) 12/14/2015 S/P drug eluting coronary [...] TOTAL FACIAL NERVE DECOMPRESSION &/REPAIR Left 1989 [facility] FAMILY HISTORY Problem Relation Age of [...] Date(s) Administered COVID-19 vaccine, age 12+ yr ([employer]) 11/21/2021 Influenza Seasonal Inj Quad Age 6 Mo - 64 Yrs 01/06/2020 Pneumovax 04/21/2018 influenza, high-dose, quadrivalent vaccine (FLUZONE HIGH DOSE QUADRIVALENT) 08/23/2020 Colonoscopy: 04/03/2017 Mammogram: DATA REVIEW I have directly visualized the testing documented: Prior Imaging: CT: Yes Year 2020 Abnormal Done at [facility] 01/2021 CXR: Yes 2020 Abnormal Nonspecific prominence [...] risk for lung cancer: 23.1 % Source: CC video [email or web address]/[email or web address]/[email or web address] I have determined that the patient is [...] candy are also excellent oral substitutes. Phone [phone] ([phone]) as additional resource. The medical conditions adversely [...] which included preparing to see the patient, [id number] patient care, completing clinical documentation, obtaining and/or reviewing separately obtained history, performing a medically appropriate examination, counseling and educating the pat ient/family/caregiver, ordering medications, tests, or procedures and communicating results to the patient/family/caregiver. Nicole Kenny APRN.TELECOMMUNICATOR SUPERVISOR NPI #: March 13, 2022 2:10 PM documented in this encounterDoctors Hospital04-21-2022 Miscellaneous Notes* Telephone Encounter - Joyce [...] notify patient. Isadora Anglin documented in this encounterDoctors Hospital11-30-2021 NoteHNO ID: [id number] Author: RT Hrial(R) Service: Radiology Author Type: Technologist Type: Progress [...] BY: RT Hiral(R) October 10, 2021 11:15 [id number] NoteHNO ID: [id number] Author: Tracy Ramires APRN.TELECOMMUNICATOR SUPERVISOR Service: ? Author Type: Nurse Practitioner Type: [...] seen by myself on 06/12/2021 at our [place] office. Stress testing was done d/t symptoms [...] 12/14/2015 - Bipolar affective disorder, currently active ([facility]) 01/18/2016 [facility] - Chronic bronchitis (HCC) 07/26/2016 - Closed skull fracture ([facility]) 1994 [facility], [facility] - Coronary artery disease - DDD (degenerative disc disease), cervical - Endometriosis 2007 - Essential hypertension 12/14/2015 - GERD (gastroesophageal reflux disease) 03/13/2019 - History of colon polyps - History of gastric ulcer 12/14/2015 - HLD (hyperlipidemia) - Injury of left facial nerve 1994 - PAD (peripheral artery disease) ([facility]) 09/28/2019 - Recurrent major depression in partial remission ([facility]) 12/14/2015 - S/P drug eluting [...] not included)...[facility]10-04-2021 Note HNO ID: [id number] Author: MAISHA Alicea Service: Radiology Author Type: Clinical Layboy Tender Type: Progress Notes Filed: 08/14/2021 4:04 PM [...] POST EXAM PIV STATUS: Discontinued PROCEDURE TYPE: [place] Stress: 12.6mCi [id number] was administered IV for Rest Imaging at 13:45 by MAISHA Alicea. 30.5 mCi [id number] was administered IV for Stress Imaging at 15:40 by MAISHA Alicea. PATIENT DISCHARGED TO: Ambulatory patient, left [place] department area. A Diagnostic radioactive procedure has taken place, with no further precautions necessary other than routine body substance precautions. More information regarding radiation safety can be found using this link: [email or web address] SIGNATURE: MAISHA Alicea PATIENT NAME: Steven Koenig DATE: August 14, 2021 TIME: 4:03 PM [phone] History of Present illness Narrative* Carol Godinez [...] 27, 2021 10:19 AM documented in this encounterDoctors Hospital03-19-2021 History of Present illness Narrative* Carol [...] 27, 2021 10:18 AM documented in this encounterDoctors Hospital08-27-2020 History of Past illness Narrative* Problem [...] of this encounter (statuses as of 03/01/2022) [facility] Narrative* Problem [...] of this encounter (statuses as of 03/13/2022) [facility] Narrative* Problem [...] of this encounter (statuses as of 03/23/2022) [facility] Narrative* Problem [...] of this encounter (statuses as of 04/03/2022) [facility] Narrative* Problem [...] of this encounter (statuses as of 05/03/2022) [facility] Narrative* Problem [...] of this encounter (statuses as of 05/07/2022) [facility] Narrative* Problem [...] of this encounter (statuses as of 05/11/2022) [facility] Narrative* Problem [...] of this encounter (statuses as of 05/23/2022) [facility] Narrative* Problem Noted Date Resolved Date Asthma 07/07/2020 07/07/2020 Hypomagnesemia 10/22/2019 10/23/2019 Last Assessment & Plan: [facility] [place] Preop cardiovascular exam 09/28/20192018 Precordial pain, [...] of this encounter (statuses as of 05/24/2022) [facility] of Past [facility] Narrative* Problem [...] of this encounter (statuses as of 05/25/2022) [facility] Narrative* Problem [...] of this encounter (statuses as of 05/29/2022) [facility] Narrative* Problem [...] of this encounter (statuses as of 05/30/2022) [facility] Narrative* Problem [...] of this encounter (statuses as of 05/30/2022) [facility] Narrative* Problem [...] of this encounter (statuses as of 06/01/2022) [facility] Narrative* Problem [...] of this encounter (statuses as of 06/04/2022) [facility] Narrative* Problem [...] of this encounter (statuses as of 06/06/2022) [facility] Narrative* Problem [...] of this encounter (statuses as of 06/06/2022) [facility] Narrative* Problem [...] of this encounter (statuses as of 06/15/2022) [facility] Narrative* Problem [...] of this encounter (statuses as of 07/06/2022) [facility] Narrative* Problem [...] of this encounter (statuses as of 07/09/2022) [facility] Narrative* Problem [...] of this encounter (statuses as of 07/18/2022) [facility] Narrative* Problem [...] of this encounter (statuses as of 07/24/2022) [facility] Narrative* Problem [...] of this encounter (statuses as of 07/31/2022) [facility] Narrative* Problem [...] of this encounter (statuses as of 08/10/2022) [facility] Narrative* Problem [...] of this encounter (statuses as of 08/16/2022) [facility] Narrative* Problem [...] of this encounter (statuses as of 08/31/2022) [facility] Narrative* Problem [...] of this encounter (statuses as of 09/05/2022) [facility] Narrative* Problem [...] of this encounter (statuses as of 09/06/2022) [facility] Narr[facility]* Problem [...] of this encounter (statuses as of 09/24/2022) [facility] Narrative* Problem [...] of this encounter (statuses as of 09/30/2022) [facility] Narrative* Problem [...] of this encounter (statuses as of 10/02/2022) [facility] Narrative* Problem [...] of this encounter (statuses as of 11/26/2022) [facility] Narrative* Problem [...] of this encounter (statuses as of 12/15/2022) [facility]* Problem [...] of this encounter (statuses as of 01/01/2023) [facility]* Problem [...] of this encounter (statuses as of 01/01/2023) [facility] Narr[facility]* Problem [...] of this encounter (statuses as of 02/27/2023) [facility]* Problem [...] of this encounter (statuses as of 04/16/2023) [facility]* Problem [...] of this encounter (statuses as of 05/09/2023) [facility] Narrative* Problem [...] of this encounter (statuses as of 05/09/2023) [facility]arr[facility]* Problem [...] of this encounter (statuses as of 05/14/2023) [facility] Narrative* Problem [...] of this encounter (statuses as of 05/28/2023) [facility] Narrative* Problem [...] of this encounter (statuses as of 06/07/2023) [facility] Narrative* Problem [...] of this encounter (statuses as of 06/11/2023) [facility] Narrative* Problem [...] of this encounter (statuses as of 06/13/2023) [facility] Narrative* Problem [...] of this encounter (statuses as of 06/14/2023) [facility] Narr[facility]* Problem [...] of this encounter (statuses as of 09/26/2023) [facility] Narrative* Problem [...] of this encounter (statuses as of 10/18/2023) [facility] Narrative* Problem [...] of this encounter (statuses as of 12/24/2023) [facility] Narrative* Problem [...] of this encounter (statuses as of 01/25/2024) [facility] No data available for this section [facility] Evaluation + Plan note Future Appointments Appointment Date:01/21/2025 02:00:00 PM Scheduled Provider:EMMA QUEEN DO Location:[facility] Appointment Type:PC OV [facility] Evaluation + Plan note Future Appointments Appointment Date:12/14/2024 08:00:00 AM Scheduled Provider: Location:[facility] Appointment Type:CV Procedure - Heart Lab/Hybrid OR Appointment Date:12/18/2024 02:00:00 PM Scheduled Provider: Location:[facility] Appointment Type:Echo - Echocardiogram Adult Appointment Date:01/18/2025 10:00:00 AM Scheduled Provider:CHRISTIN GONZALEZ Location:[facility] Appointment Type:CV OV Appointment Date:01/21/2025 02:00:00 PM Scheduled Provider:EMMA QUEEN DO Location:[facility] Appointment Type:PC OV [facility] Evaluation + Plan note Future Appointments Appointment Date:12/18/2024 02:00:00 PM Scheduled Provider: Location:[facility] Appointment Type:Echo - Echocardiogram Adult Appointment Date:01/18/2025 10:00:00 AM Scheduled Provider:CHRISTIN GONZALEZ Location:[facility] Appointment Type:CV OV Appointment Date:01/21/2025 02:00:00 PM Scheduled Provider:EMMA QUEEN DO Location:[facility] Appointment Type:PC OV Diagnostic Tests Pending * Complete Blood Count 12/14/24 [facility] Evaluation + Plan note Future Appointments Appointment Date:01/18/2025 10:00:00 AM Scheduled Provider:CHRISTIN GONZALEZ Location:[facility] Appointment Type:CV OV Appointment Date:01/21/2025 02:00:00 PM Scheduled Provider:EMMA QUEEN DO Location:[facility] Appointment Type:PC OV [facility] Evaluation + Plan note Future Appointments Appointment Date:07/30/2025 10:00:00 AM Scheduled Provider:EMMA QUEEN DO Location:[facility] Appointment Type:PC OV Diagnostic Tests Pending * Blood Culture (bacterial) 06/12/25 * Blood Culture (bacterial) 06/12/25 Future Scheduled Tests Laboratory* Basic Metabolic Panel 01/11/25 * N-Terminal proBNP 01/11/25 Radiology* MRI Cardiac Morphology & Func W+W/O Cont 02/23/25 * CT Low Dose Lung Cancer Screening (LDCT) 03/10/25 [facility] Evaluation note* Diagnosis Recurrent major depression in partial remission (HCC) Major depressive disorder, recurrent episode, in partial or unspecified remission [facility] encounter [facility]* Diagnosis Dyspnea on exertion- Primary Other dyspnea and respiratory abnormality Smoker Tobacco use disorder Encounter for screening for malignant neoplasm of lung documented [facility] this encounter [facility]* Diagnosis Wheezing documented in this encounter [facility]* Diagnosis DIAZ (dyspnea on exertion)- Primary Other dyspnea and respiratory abnormality Essential hypertension Unspecified essential hypertension Coronary artery disease involving jamul coronary artery of jamul heart without angina pectoris Mixed hyperlipidemia Smoker Tobacco use disorder Stenosis of carotid artery, unspecified laterality documented in this encounter [facility]* Diagnosis Recurrent major depression in partial remission (HCC) Major depressive disorder, recurrent episode, in partial or unspecified remission [facility]* Diagnosis Chronic bronchitis, unspecified chronic bronchitis [...] vascular disease, unspecified [facility]* Diagnosis DIAZ (dyspnea on exertion) Other dyspnea and respiratory abnormality [facility]* Diagnosis Tobacco use disorder- Primary [facility]* Diagnosis Smoker- Primary Tobacco use disorder Encounter for screening for malignant neoplasm of lung documented [facility] this encounter [facility]* Diagnosis Chronic bronchitis, unspecified chronic bronchitis type (HCC)- Primary [facility]* Diagnosis Dyspnea on exertion Other dyspnea and respiratory abnormality [facility]* Diagnosis Asthma-COPD overlap syndrome (HCC)- Primary Wheezing Smoking Tobacco use disorder [facility] encounter [facility]* Diagnosis Recurrent major depression in partial remission (HCC) Major depressive disorder, recurrent episode, in partial or unspecified remission [facility] encounter [facility]* Diagnosis SOB (shortness of breath)- Primary Shortness of breath [facility] Diagnosis SOB (shortness of breath) Shortness of breath documented in this encounter [facility] note* Diagnosis Recurrent major depression in partial remission (HCC) Major depressive disorder, recurrent episode, in partial or unspecified remission documented in this encounter [facility] note* Diagnosis Lung nodules- Primary Other nonspecific abnormal finding of lung field Current smoker Tobacco use disorder documented in this encounter [facility] note* Diagnosis Situational anxiety- Primary Other anxiety states Allergic conjunctivitis of both eyes Other chronic allergic conjunctivitis Recurrent major depression in partial remission (HCC) Major depressive disorder, recurrent episode, in partial or unspecified remission Essential hypertension Unspecified essential hypertension Coronary artery disease involving jamul coronary artery of jamul heart without angina pectoris Chronic bronchitis, unspecified chronic bronchitis type ([facility]) Encounter for immunization Need for other specified prophylactic vaccination against single bacterial disease Mixed hyperlipidemia Lung nodule Solitary pulmonary nodule Screening for osteoporosis Special screening for osteoporosis Asymptomatic menopause documented in this encounter [facility] note* Diagnosis Thrush (oral)- Primary Prediabetes Other abnormal glucose Essential hypertension Unspecified essential hypertension documented in this encounter [facility] note* Diagnosis Peripheral arterial disease (HCC)- Primary Peripheral vascular disease, unspecified [facility]* Diagnosis PAD (peripheral artery disease) ([facility]) Peripheral vascular disease, unspecified documented in this encounter [facility] note* Diagnosis Hemoptysis- Primary Hemoptysis, unspecified Stage 3 severe COPD by GOLD classification ([facility]) Cigarette smoker Tobacco use disorder documented in this encounter [facility] note* Diagnosis Alcohol withdrawal syndrome without complication (HCC)- Primary documented in this encounter [facility] note* Diagnosis Onset Date Resolution Status Alcohol intoxication acute Chest pain acute Desire for detoxification ac [place] COPD exacerbation chronic [facility] Work Phone: Evaluation note* Diagnosis Onset Date Resolution Status Alcohol intoxication acute Chest pain acute Desire for detoxification [place] Peripheral arterial disease acute Pneumococcal pneumonia acute Rash acute COPD exacerbation [facility] Work Phone: Evaluation note* Diagnosis Dehydration- Primary documented in this encounter [facility] Work Phone: Evaluation note* Diagnosis Chronic midline low back pain with sciatica, sciatica laterality unspecified- Primary Lesion of left ear Essential hypertension Unspecified essential hypertension Mixed hyperlipidemia Chronic bronchitis, unspecified chronic bronchitis type (HCC) Recurrent major depression in partial remission (HCC) Major depressive disorder, recurrent episode, in partial or unspecified remission Coronary artery disease involving jamul coronary artery of jamul heart without angina pectoris documented in this encounter [facility] note* Diagnosis Stage 3 severe COPD by GOLD classification ([facility])- Primary Cigarette smoker Tobacco use disorder Lung nodules Other nonspecific abnormal finding of lung field documented in this encounter [facility] note* Diagnosis Radiculopathy, lumbar region- Primary Thoracic or lumbosacral neuritis or radiculitis, unspecified Chronic midline low back pain with sciatica, sciatica laterality unspecified [facility]* Diagnosis Encounter for screening for lung cancer- Primary Tobacco use current [facility]* Diagnosis Essential hypertension Unspecified essential hypertension Recurrent major depression in partial remission (HCC) Major depressive disorder, recurrent episode, in partial or unspecified remission [facility]* Diagnosis Coronary artery disease involving jamul coronary artery of jamul heart without angina pectoris- Primary Wheezing Essential hypertension Unspecified essential hypertension Gastroesophageal reflux disease, unspecified whether esophagitis present Recurrent major depression in partial remission (HCC) Major depressive disorder, recurrent episode, in partial or unspecified remission [facility]* Diagnosis Wheezing documented in this encounter [facility] note* Diagnosis Wheezing Essential hypertension Unspecified essential hypertension Gastroesophageal reflux disease, unspecified whether esophagitis present Recurrent major depression in partial remission (HCC) Major depressive disorder, recurrent episode, in partial or unspecified remission documented in this encounter [facility] note* Diagnosis Wheezing documented in this encounter [facility] note* Diagnosis Pre-operative examination- Primary Preoperative examination, unspecified Primary osteoarthritis of right hip Primary localized osteoarthrosis, pelvic region and thigh Essential hypertension Unspecified essential hypertension Chronic bronchitis, unspecified chronic bronchitis type ([facility]) Smoker Tobacco use disorder Recurrent major depression in partial remission (HCC) Major depressive disorder, recurrent episode, in partial or unspecified remission Bipolar affective disorder, current episode mixed, current episode severity unspecified ([facility]) Gastroesophageal reflux disease, esophagitis presence [...] Unspecified essential hypertension Coronary artery disease involving jamul coronary artery of jamul heart without angina pectoris Chronic bronchitis, unspecified chronic bronchitis type ([facility]) Encounter for immunization Need for other specified prophylactic vaccination against single bacterial disease Mixed hyperlipidemia Lung nodule Solitary pulmonary nodule Screening for osteoporosis Special screening for osteoporosis Asymptomatic menopause Chronic midline low back pain with sciatica, sciatica laterality unspecified [facility] Diagnosis Pre-operative examination- Primary Preoperative examination, unspecified Primary osteoarthritis of right hip Primary localized osteoarthrosis, pelvic region and thigh Essential hypertension Unspecified essential hypertension Chronic bronchitis, unspecified chronic bronchitis type ([facility]) Smoker Tobacco use disorder Recurrent major depression in partial remission (HCC) Major depressive disorder, recurrent episode, in partial or unspecified remission Bipolar affective disorder, current episode mixed, current episode severity unspecified (HCC) Gastroesophageal reflux disease, esophagitis presence not specified PAD (peripheral artery disease) ([facility])- Primary Peripheral vascular disease, unspecified PAD (peripheral artery disease) ([facility]) Peripheral vascular disease, unspecified Essential hypertension Unspecified essential hypertension Smoker Tobacco use disorder Chronic bronchitis, unspecified chronic bronchitis type (HCC) Smoker Tobacco use disorder Hypomagnesemia Disorders of magnesium metabolism Preoperative examination- Primary Preoperative examination, unspecified PAD (peripheral artery disease) ([facility]) Peripheral vascular disease, unspecified Essential [...] Unspecified essential hypertension Coronary artery disease involving jamul coronary artery of jamul heart without angina pectoris Chronic bronchitis, unspecified chronic bronchitis type (HCC) Encounter for immunization Need for other specified prophylactic vaccination against single bacterial disease Mixed hyperlipidemia Lung nodule Solitary pulmonary nodule Screening for osteoporosis Special screening for osteoporosis Asymptomatic menopause Hemoptysis Hemoptysis, unspecified [facility] Diagnosis Pre-operative examination- Primary Preoperative [...] Unspecified essential hypertension Coronary artery disease involving jamul coronary artery of jamul heart without angina pectoris Chronic bronchitis, unspecified chronic bronchitis type (HCC) Encounter for immunization Need for other specified prophylactic vaccination against single bacterial disease Mixed hyperlipidemia Lung nodule Solitary pulmonary nodule Screening for osteoporosis Special screening for osteoporosis Asymptomatic menopause documented in this encounter [facility] Author Dr. Luque [facility] January 02, 2023 9:37pm Note Date/Time January 02, 2023 9:19pm [facility] Medical Records Department [address] [place] [address] History & Physical Exam 01/02/232135 MR#: [id number] Acct: [id number] Name: STEVEN KOENIG Rep #:[id number] : [...] abuse, Tobacco use who presents to the [facility] ED on 01/02/23 with history of [...] Clarity Clear, Urine pH 6.0, Ur Specific [place] 1.005, Urine Protein Negative, Urine Glucose (UA) [...] % (Auto) 50.1, Lymph % (Auto) 37.2, [place] % (Auto) 9.6, Eos % (Auto) 1.4, [...] 21:10 EST Reading Location ID and State: [facility] / [place] , Service support , Assessment & Plan Assessment/Plan (1) Chest pain: (2) COPD exacerbation: (3) Desire for detoxification: PLAN: Plan The patient is a 67 y/o F w/ PMHx: COPD, HTN, HLD, Depression and Anxiety, EtOH abuse, Tobacco use who presents to the [facility] ED on 01/02/23 with history of [...] 76 minutes. Charges/Coding Visit Charges Inpatient E&M: 12805 Init Hosp L3 01/02/232136 <Electronically signed by Linda Luque MD> Cosigner Signature (if applicable): CC: Dr. Linda Luque MD; Dr. Ulises Hermosillo MD~ Signed [facility] Work Phone: Hospital Discharge instructions No data available for this section [facility] Note* Yolanda Gonzalez RN: PERFORM Event Display: [place] [facility] Patient Summary Authored Date: [id number] Discharge Instructions Thank you for allowing [facility] to assist you with your healthcare needs. [...] MD When Within 2-4 days Where: [address] [place] [address]- Allergies NKA Medications Please ask your primary [...] may report side effects to FDA at 8-624-RMS-8862. What other drugs will affect budesonide and formoterol? Sometimes it is not safe to use certain medications at the same time. Some drugs can affect your blood levels of other drugs you take, which may increase side effects or make the medications less effective. Many drugs can affect budesonide and formoterol. This includes prescription and fcqn-jhr-rvcyfbs medicines, vitamins, and herbal products. Not all [...] to ensure that the information provided by [employer]. ('[employer]') is accurate, up-to-date, and complete, but no guarantee is made to that effect. Drug information contained herein may be time sensitive. [employer] information has been compiled for use by healthcare practitioners and consumers in the [place] and therefore [employer] does not warrant that uses outside of the [place] are appropriate, unless specifically indicated otherwise. [employer]'s drug information does not endorse drugs, diagnose patients or recommend therapy. [employer] drug information isan informational resource designed to [...] effective or appropriate for any given patient. [facility] does not assume any responsibility for any aspect of healthcare administered with the aid of information [facility] provides. The information contained herein is not intended to cover all possible uses, directions, precautions, warnings, drug interactions, allergic reactions, or adverse effects. If you have questions about the drugs you are taking, check with your doctor, nurse or pharmacist. Copyright 9606-0543 [employer]. Version: 9.02. Revision Date: 07/08/2019. prednisone (PRED [...] may report side effects to FDA at 7-145-XID-9543. What other drugs will affect prednisone? Sometimes [...] may affect prednisone. This includes prescription and zfwq-lnn-rnpsjtt medicines, vitamins, and herbal products. Not all [...] to ensure that the information provided by [employer]. ('[employer]') is accurate, up-to-date, and complete, but no guarantee is made to that effect. Drug information contained herein may be time sensitive. [employer] information has been compiled for use by healthcare practitioners and consumers in the [place] and therefore [employer] does not warrant that uses outside of the [place] are appropriate, unless specifically indicated otherwise. [employer] drug information does not endorse drugs, diagnose patients or recommend therapy. [employer] drug information isan informational resource designed to [...] effective or appropriate for any given patient. [facility] does not assume any responsibility for any aspect of healthcare administered with the aid of information [facility] provides. The information contained herein is not intended to cover all possible uses, directions, precautions, warnings, drug interactions, allergic reactions, or adverse effects. If you have questions about the drugs you are taking, check with your doctor, nurse or pharmacist. Copyright 8962-9660 [facility]. Version: 10. Revision Date: 02/05/2019. doxycycline (oral/injection) [...] or life-threatening conditions such as anthrax or [place] spotted fever. The benefit of treating a [...] may report side effects to FDA at 9-200-QYP-6934. What other drugs will affect doxycycline? Sometimes it is not safe to use certain medications at the same time. Some drugs can affect your blood levels of other drugs you take, which may increase side effects or make the medications less effective. Other drugs may affect doxycycline, including prescription and thxh-qtq-titfmwr medicines, vitamins, and herbal products. Tell your [...] to ensure that the information provided by [employer]. ('[employer]') is accurate, up-to-date, and complete, but no guarantee is made to that effect. Drug information contained herein may be time sensitive. [employer] information has been compiled for use by healthcare practitioners and consumers in the [place] and therefore [employer] does not warrant that uses outside of the [place] are appropriate, unless specifically indicated otherwise. [employer] drug information does not endorse drugs, diagnose patients or recommend therapy. [employer] drug information isan informational resource designed to [...] effective or appropriate for any given patient. [facility] does not assume any responsibility for any aspect of healthcare administered with the aid of information [facility] provides. The information contained herein is not intended to cover all possible uses, directions, precautions, warnings, drug interactions, allergic reactions, or adverse effects. If you have questions about the drugs you are taking, check with your doctor, nurse or pharmacist. Copyright 8666-6518 [employer]. Version: 21.04. Revision Date: 09/14/2020. Education Materials [...] your ankles gets worse Dizziness or weakness 0148-9212 [employer]. [address] [place] [address], [place] [address]. All rights reserved. This information is not intended as a substitute for professional medical care. Always follow yourhealthcare professional's instructions. Additional Information VACCINATE! IT SAVES LIVES! Members of the community who have not yet received the COVID-19 vaccine and would like to receive it can visit one of [facility] vaccine clinics. There are many vaccine clinic locations within the [facility]. For locations and available times, please visit [email or web address]. It is important to note that some COVID mobile vaccine clinics are held outdoors and may be canceled in rainy orstormy conditions. To learn more about pediatric vaccinations (ages 5-11), we invite you to visit the [facility] webpage. [email or web address] learn more about the COVID-19 vaccine, we invite you to visit the [facility] website for a list of frequently asked questions. [email or web address] [facility] Access Instructions: Stay connected with your healthcare team and access your personal medical information anytime with the [facility] Patient Portal. If you would like a full copy of your medical records please contact the [facility] Medical Records Department Saturday through Saturday between 8a.m. and 4:30p.m. Please follow the directions below to access the portal: 1.Access the email account you provided upon registration to the hospital.2.Look for an invitation email from [facility].3.Open the email and access the invitation link: Accept Invitation to [facility]4.Fill in the required randle to create your account. Sign into [email or web address] with your username and password that you [...] you will allow to register on the [facility] Patient Portal for access to your information. You can also access the [facility] Patient Portal on the [employer]. Simply click on "Health Records" under "HealthData" [...] Call your local pharmacy or go to [email or web address] to find one close to you.3.Make use of household items: Use cat litter or old coffee grounds to dispose medications if other options arenot available. Mix your drugs with these household products, seal them in an airtight container andthrow it into the garbage. Call [facility]: [phone] to be sure your drugs can be [...] aware that I should contact my doctor. Patient/Government Auditor Signature: Date/Time: Relationship to Patient: Witness Name/Signature: Date/Time: * ZINA GLOVER DO: SIGN, VERIFY Event Display: EKG [ED AO] - CV Authored Date: [id number] [facility] Progress note No data available for this section [facility] Reason for referral (narrative)* Outpatient Procedure (Routine) - Authorized Specialty Diagnoses / Procedures Referred By Contac t Referred To Contact HEART [facility] Diagnoses DIAZ (dyspnea on exertion) Procedures ECHO ECHO TTHRC R-T 2D W/WOM-MODE COMPL SPEC&COLR D Tracy Ramires APRN.TELECOMMUNICATOR SUPERVISOR [address] [facility] [address] [place] [address] [facility] [place] [id number] [place] [address] Referral ID Status Reason Start Date Expiration Date Visits Requested Visits Authorized [id number] Authorized Auto-Generat ed Referral 04/30/2022 04/30/2023 1 1 [facility] for referral (narrative)* Outpatient Procedure (Routine) - Authorized Specialty Diagnoses / Procedures Referred By Contac t Referred To Contact [facility] Diagnoses SOB (shortness of breath) Procedures OXIMETRY WITH AMBULATION NONINVASIVE EAR/PULSE OXIMETRY MULTIPLE Margaret Atwood MD [address] [place] [address] [facility] [place] [address] [place] [address] Referral ID Status Reason Start Date Expiration Date Visits Requested Visits Authorized [id number] Authorized Auto-Generat ed Referral 07/06/2022 08/05/2023 1 1 [facility] for referral (narrative)* Outpatient Procedure (Routine) - Authorized Specialty Diagnoses / Procedures Referred By Contac t Referred To Contact [facility] Diagnoses Peripheral arterial disease (HCC) Procedures PVR LEG SHERIN VAS LAB NON-INVASIVE PHYSIOLOGIC STUDY EXTREMITY 3 Doron Mahoney DO [address] [place] [address] [address] Referral ID Status Reason Start Date Expiration Date Visits Requested Visits Authorized [id number] Authorized Auto-Generat ed Referral 2 11/10/2022 1 1 [facility] for referral (narrative)* Outpatient Procedure (Routine) - Pending Review Specialty Diagnoses / Procedures Referred By Contac t Referred To Contact [facility] Diagnoses PAD (peripheral artery disease) (HCC) Procedures PVR LEG SHERIN VAS LAB NON-INVASIVE PHYSIOLOGIC STUDY EXTREMITY 3 Doron Mahoney DO [address] [place] [address] [address] Referral ID Status Reason Start Date Expiration Date Visits Requested Visits Authorized [id number] Pending Review Auto-Generat ed Referral 2 10/02/2023 1 1 [facility] for referral (narrative)* Diagnostic Procedure Only (Routine) - Closed Specialty Diagnoses / Procedures Referred By Contac t Referred To Contact XR IMAGING Diagnoses Chronic midline low back pain with sciatica, sciatica laterality unspecified Procedures XR LUMBAR GENERAL 3V AP/LAT/L5-S1 RADEX SPINE LUMBOSACRAL 2/3 VIEWS Oly Smith APRN.TELECOMMUNICATOR SUPERVISOR [address] [place] [address] Xr Imaging Referral ID Status Reason Start Date Expiration Date V isits Requested Visits Authorized [id number] Closed Auto-Generate d Referral 05/08/2023 06/06/2024 1 1 * Transition of Care (Routine) - Ref Not Required Specialty Diagnoses / Procedures Referred By Contac t Referred To Contact Dermatology Diagnoses Lesion of left ear Procedures CONSULT TO DERMATOLOGY Oly Smith APRN.TELECOMMUNICATOR SUPERVISOR [address] [place] [address] Referral ID Status Reason Start Date Expiration Date Visits Requested Visits Authorized [id number] Ref Not Required PCP Requested Referral 05/08/2023 05/07/2024 1 1 [facility] for referral (narrative)* Diagnostic Procedure Only (Routine) - Closed Specialty Diagnoses / Procedures Referred By Contac t Referred To Contact XR IMAGING Diagnoses Chronic midline low back pain with sciatica, sciatica laterality unspecified Procedures XR LUMBAR GENERAL 3V AP/LAT/L5-S1 RADEX SPINE LUMBOSACRAL 2/3 VIEWS Oly Durbin APRN.TELECOMMUNICATOR SUPERVISOR [address] [place] [address] [place] [address] Referral ID Status Reason Start Date Expiration Date V isits Requested Visits Authorized [id number] Closed Auto-Generate d Referral 05/08/2023 06/06/2024 1 1 [facility] for visit Narrative* Outpatient Procedure (Routine) - Closed Specialty Diagnoses / Procedures Referred By Contac t Referred To Contact HEART [facility] Diagnoses DIAZ (dyspnea on exertion) Procedures ECHO ECHO TTHRC R-T 2D W/WOM-MODE COMPL SPEC&COLR D Tracy Ramires, GIFT MANAGER.TELECOMMUNICATOR SUPERVISOR [address] [place] [address] [place] [address] [facility] [place] [address] [place] [address] Referral ID Status Reason Start Date Expiration Date V isits Requested Visits Authorized [id number] Closed Auto-Generate d Referral 04/30/2022 04/30/2023 1 1 [facility] for visit Narrative* Outpatient Procedure (Routine) - Closed Specialty Diagnoses / Procedures Referred By Contac t Referred To Contact [facility] Diagnoses SOB (shortness of breath) Procedures OXIMETRY WITH AMBULATION NONINVASIVE EAR/PULSE OXIMETRY MULTIPLE DETER Margaret Kasper MD [address] [place] [address] [facility] [place] [address] [place] [address] Referral ID Status Reason Start Date Expiration Date V isits Requested Visits Authorized [id number] Closed Auto-Generate d Referral 07/06/2022 08/05/2023 1 1 [facility] for visit Narrative* Diagnostic Procedure Only (Routine) - Closed Specialty Diagnoses / Procedures Referred By Contac t Referred To Contact XR IMAGING Diagnoses Chronic midline low back pain with sciatica, sciatica laterality unspecified Procedures XR LUMBAR GENERAL 3V AP/LAT/L5-S1 RADEX SPINE LUMBOSACRAL 2/3 VIEWS Oly Durbin, GIFT MANAGER.TELECOMMUNICATOR SUPERVISOR [address] [place] [address] [place] [address] Referral ID Status Reason Start Date Expiration Date V isits Requested Visits Authorized [id number] Closed Auto-Generate d Referral 05/08/2023 06/06/2024 1 1 [facility] Family History No Family History Records Found Relationship Condition Age at Onset Recorded Date/T eyad mother Malignant neoplasm of liver Unknown father Malignant neoplasm of lung Unknown Advance Directives No Advanced Directives Records FoundDocuments on File Type Date Recorded 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 Advance Directive(s) 08/25/2021 8:30 AM Advance Directive(s) 07/27/2021 5:44 PM Advance Directive(s) 10/20/2019 11:23 AM Advance Directive(s) 10/05/2019 10:43 AM Advance Directive(s) 03/25/2019 7:55 AM Advance Directive(s) 01/06/2019 12:24 PM Advance Directive(s) 03/19/2017 9:41 AM Documents on File Type Date Recorded 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 Advance Directive(s) 08/25/2021 8:30 AM Advance Directive(s) 07/27/2021 5:44 PM Advance Directive(s) 10/20/2019 11:23 AM Advance Directive(s) 10/05/2019 10:43 AM Advance Directive(s) 03/25/2019 7:55 AM Advance Directive(s) 01/06/2019 12:24 PM Advance Directive(s) 03/19/2017 9:41 AM Advance Directive Response Recorded Date/ Time Advance Directives No May 24 2:30pm Living Will No January 02, 2 023 6:52pm Power of Business Applications Specialist No January 02, 2023 6:52pm Advance Directive Response Recorded Date/ Time Advance Directives No May 24 2:30pm Living Will No January 02, 2 023 11:38pm Power of Business Applications Specialist No January 02, 2023 11:38pm Latest Code Status on File Code Status Date Activated Date Inactivated Comments Full Code 04/30/2018 3:04 AM 05/05/2018 2:43 PM Reason for Referral Specialty Diagnoses / Procedures Referred By Contac t Referred To Contact Pulmonary and Critical Care Medicine Diagnoses Dyspnea on exertion Procedures CONSULT TO PULM/CRITICAL CARE OFFICE/OUTPATIENT NEW HIGH MDM 60-74 MINUTES Nicole Kenny, GIFT MANAGER.TELECOMMUNICATOR SUPERVISOR [address] [place] [address] Referral ID Status Reason Start Date Expiration Date Visits Requested Visits Authorized [id number] Authorized PCP Requested Referral 03/13/2022 03/13/2023 1 1 Specialty Diagnoses / Procedures Referred By Contac t Referred To Contact [facility] Diagnoses Dyspnea on exertion Procedures LUNG DIFFUSION CAPACITY (DLCO) DIFFUSING CAPACITY Nicole Kenny, GIFT MANAGER.TELECOMMUNICATOR SUPERVISOR [address] [place] [address] [facility] [place] [address] [place] [address] Referral ID Status Reason Start Date Expiration Date Visits Requested Visits Authorized [id number] Authorized Auto-Generat ed Referral 03/13/2022 04/12/2023 1 1 Specialty Diagnoses / Procedures Referred By Contac t Referred To Contact [facility] Diagnoses Dyspnea on exertion Procedures SPIROMETRY - BASELINE AND POST DILATOR BRNCDILAT RSPSE SPMTRY PRE&POST-BRNCDILAT ADMN Nicole Kenny, GIFT MANAGER.TELECOMMUNICATOR SUPERVISOR [address] [place] [address] [facility] [place] [address] [place] [address] Referral ID Status Reason Start Date Expiration Date Visits Requested Visits Authorized [id number] Authorized Auto-Generat ed Referral 03/13/2022 04/12/2023 1 1 Specialty Diagnoses / Procedures Referred By Contac t Referred To Contact Vascular Surgery Diagnoses PAD (peripheral artery disease) (HCC) Procedures CONSULT TO VASCULAR SURGERY OFFICE/OUTPATIENT [facility] MDM 60-74 MINUTES Ulises Hermosillo MD [address] [place] [address] Referral ID Status Reason Start Date Expiration Date Visits Requested Visits Authorized [id number] Authorized PCP Requested Referral 05/11/2022 05/11/2023 1 1 Specialty Diagnoses / Procedures Referred By Contac t Referred To Contact [facility]ART AND [facility] Diagnoses PAD (peripheral artery disease) (HCC) Procedures PVR LEG SHERIN VAS LAB NON-INVASIVE PHYSIOLOGIC STUDY EXTREMITY 3 LEVLS Ulises Hermosillo MD [address] [place] [address] [facility] [place] [address] [place] [address] Referral ID Status Reason Start Date Expiration Date Visits Requested Visits Authorized [id number] Authorized Auto-Generat ed Referral 05/11/2022 05/11/2023 1 1 Specialty Diagnoses / Procedures Referred By Contac t Referred To Contact CT IMAGING Diagnoses Smoker Encounter for screening for malignant neoplasm of lung Procedures CT LUNG SCREEN WO IVCON COMPUTED TOMOGRAPHY THORAX LW DOSE LNG CA SCR C- Nicole Kenny, GIFT MANAGER.TELECOMMUNICATOR SUPERVISOR [address] [place] [address] Ct [facility] Referral ID Status Reason Start Date Expiration Date Visits Requested Visits Authorized [id number] Pending Review Auto-Generat ed Referral 05/30/2022 06/29/2023 1 1 Specialty Diagnoses / Procedures Referred By Contac t Referred To Contact [facility] Diagnoses Radiculopathy, lumbar region Chronic midline low back pain with sciatica, sciatica laterality unspecified Procedures CONSULT TO PHYSICAL THERAPY PHYSICAL THERAPY [facility]ATION [facility] COM[facility]X 45 MINS Older, Oly, GIFT MANAGER.TELECOMMUNICATOR SUPERVISOR [address] [place] [address] [facility] [place] [address] [place] [address] Referral ID Status Reason Start Date Expiration Date Visits Requested Visits Authorized [id number] Pending Review Auto-Generat ed Referral 05/13/2023 05/12/2024 1 1 Specialty Diagnoses / Procedures Referred By Contac t Referred To Contact Pain Management Diagnoses Radiculopathy, lumbar region Chronic midline low back pain with sciatica, sciatica laterality unspecified Procedures CONSULT TO PAIN MGT OFFICE/OUTPATIENT [facility] 60-74 MINUTES Older, Oly, GIFT MANAGER.TELECOMMUNICATOR SUPERVISOR [address] [place] [address] Referral ID Status Reason Start Date Expiration Date Visits Requested Visits Authorized [id number] Pending Review PCP Requested Referral 05/13/2023 05/12/2024 1 1 Specialty Diagnoses / Procedures Referred By Contac t Referred To Contact CT IMAGING Diagnoses Encounter for screening for lung cancer Tobacco use current Procedures CT LUNG SCREEN WO IVCON COMPUTED TOMOGRAPHY THORAX LW DOSE LNG CA SCR Reg- Fifi Clifton, GIFT MANAGER.TELECOMMUNICATOR SUPERVISOR [address] [place] [address] Ct Imaging Referral ID Status Reason Start Date Expiration Date Visits Requested Visits Authorized [id number] Pending Review Auto-Generat ed Referral 05/28/2023 06/26/2024 [...] section and content) DATE CREATED AUTHOR 04/29/2018 [facility] DATE CREATED AUTHOR AUTHOR'S ORGANIZ ATION 05/04/2018 [facility] DATE CREATED AUTHOR AUTHOR'S ORGANIZ ATION 01/05/2022 [facility] DATE CREATED AUTHOR AUTHOR'S ORGANIZ ATION 08/11/2022 [facility] DATE CREATED AUTHOR AUTHOR'S ORGANIZ ATION 12/29/2022 [facility] ([place]) DATE CREATED AUTHOR AUTHOR'S ORGANIZ ATION 01/08/2023 [facility] DATE CREATED AUTHOR AUTHOR'S ORGANIZ ATION 10/05/2023 [facility] DATE CREATED AUTHOR AUTHOR'S ORGANIZ ATION 07/02/2025 [facility] DATE CREATED AUTHOR AUTHOR'S ORGANIZ ATION 07/25/2025 [facility] DATE CREATED AUTHOR AUTHOR'S ORGANIZ ATION 07/28/2025 [facility] Source Comments (unrecognize d section and content) In the event this informatio n is protected by the Federal Confidentiality of Alcohol and Drug Abuse Patient Records regulations: The Federal rules restrict any use of the information to criminally investigate or prosecute any alcohol or drug abuse patient.[facility] HospitalIn the event this information is protected by the Federal Confidentiality of Alcohol and Drug Abuse Patient Records regulations: The Federal rules restrict any use of the information to criminally investigate or prosecute any alcohol or drug abuse patient.[facility] HospitalIn the event this information is protected by the Federal Confidentiality of Alcohol and Drug Abuse Patient Records regulations: The Federal rules restrict any use of the information to criminally investigate or prosecute any alcohol or drug abuse patient.[facility] HospitalIn the event this information is protected by the Federal Confidentiality of Alcohol and Drug Abuse Patient Records regulations: The Federal rules restrict any use of the information to criminally investigate or prosecute any alcohol or drug abuse patient.[facility] HospitalIn the event this information is protected by the Federal Confidentiality of Alcohol and Drug Abuse Patient Records regulations: The Federal rules restrict any use of the information to criminally investigate or prosecute any alcohol or drug abuse patient.[facility] HospitalIn the event this information is protected by the Federal Confidentiality of Alcohol and Drug Abuse Patient Records regulations: The Federal rules restrict any use of the information to criminally investigate or prosecute any alcohol or drug abuse patient.[facility] HospitalIn the event this information is protected by the Federal Confidentiality of Alcohol and Drug Abuse Patient Records regulations: The Federal rules restrict any use of the information to criminally investigate or prosecute any alcohol or drug abuse patient.[facility] HospitalIn the event this information is protected by the Federal Confidentiality of Alcohol and Drug Abuse Patient Records regulations: The Federal rules restrict any use of the information to criminally investigate or prosecute any alcohol or drug abuse patient.[facility] HospitalIn the event this information is protected by the Federal Confidentiality of Alcohol and Drug Abuse Patient Records regulations: The Federal rules restrict any use of the information to criminally investigate or prosecute any alcohol or drug abuse patient.[facility] HospitalIn the event this information is protected by the Federal Confidentiality of Alcohol and Drug Abuse Patient Records regulations: The Federal rules restrict any use of the information to criminally investigate or prosecute any alcohol or drug abuse patient.[facility] HospitalIn the event this information is protected by the Federal Confidentiality of Alcohol and Drug Abuse Patient Records regulations: The Federal rules restrict any use of the information to criminally investigate or prosecute any alcohol or drug abuse patient.[facility] HospitalIn the event this information is protected by the Federal Confidentiality of Alcohol and Drug Abuse Patient Records regulations: The Federal rules restrict any use of the information to criminally investigate or prosecute any alcohol or drug abuse patient.[facility] HospitalIn the event this information is protected by the Federal Confidentiality of Alcohol and Drug Abuse Patient Records regulations: The Federal rules restrict any use of the information to criminally investigate or prosecute any alcohol or drug abuse patient.[facility] HospitalIn the event this information is protected by the Federal Confidentiality of Alcohol and Drug Abuse Patient Records regulations: The Federal rules restrict any use of the information to criminally investigate or prosecute any alcohol or drug abuse patient.[facility] HospitalIn the event this information is protected by the Federal Confidentiality of Alcohol and Drug Abuse Patient Records regulations: The Federal rules restrict any use of the information to criminally investigate or prosecute any alcohol or drug abuse patient.[facility] HospitalIn the event this information is protected by the Federal Confidentiality of Alcohol and Drug Abuse Patient Records regulations: The Federal rules restrict any use of the information to criminally investigate or prosecute any alcohol or drug abuse patient.[facility] HospitalIn the event this information is protected by the Federal Confidentiality of Alcohol and Drug Abuse Patient Records regulations: The Federal rules restrict any use of the information to criminally investigate or prosecute any alcohol or drug abuse patient.[facility] HospitalIn the event this information is protected by the Federal Confidentiality of Alcohol and Drug Abuse Patient Records regulations: The Federal rules restrict any use of the information to criminally investigate or prosecute any alcohol or drug abuse patient.[facility] HospitalIn the event this information is protected by the Federal Confidentiality of Alcohol and Drug Abuse Patient Records regulations: The Federal rules restrict any use of the information to criminally investigate or prosecute any alcohol or drug abuse patient.[facility] HospitalIn the event this information is protected by the Federal Confidentiality of Alcohol and Drug Abuse Patient Records regulations: The Federal rules restrict any use of the information to criminally investigate or prosecute any alcohol or drug abuse patient.[facility] HospitalIn the event this information is protected by the Federal Confidentiality of Alcohol and Drug Abuse Patient Records regulations: The Federal rules restrict any use of the information to criminally investigate or prosecute any alcohol or drug abuse patient.[facility] HospitalIn the event this information is protected by the Federal Confidentiality of Alcohol and Drug Abuse Patient Records regulations: The Federal rules restrict any use of the information to criminally investigate or prosecute any alcohol or drug abuse patient.[facility] HospitalIn the event this information is protected by the Federal Confidentiality of Alcohol and Drug Abuse Patient Records regulations: The Federal rules restrict any use of the information to criminally investigate or prosecute any alcohol or drug abuse patient.[facility] HospitalIn the event this information is protected by the Federal Confidentiality of Alcohol and Drug Abuse Patient Records regulations: The Federal rules restrict any use of the information to criminally investigate or prosecute any alcohol or drug abuse patient.[facility] HospitalIn the event this information is protected by the Federal Confidentiality of Alcohol and Drug Abuse Patient Records regulations: The Federal rules restrict any use of the information to criminally investigate or prosecute any alcohol or drug abuse patient.[facility] HospitalIn the event this information is protected by the Federal Confidentiality of Alcohol and Drug Abuse Patient Records regulations: The Federal rules restrict any use of the information to criminally investigate or prosecute any alcohol or drug abuse patient.[facility] HospitalIn the event this information is protected by the Federal Confidentiality of Alcohol and Drug Abuse Patient Records regulations: The Federal rules restrict any use of the information to criminally investigate or prosecute any alcohol or drug abuse patient.[facility] HospitalIn the event this information is protected by the Federal Confidentiality of Alcohol and Drug Abuse Patient Records regulations: The Federal rules restrict any use of the information to criminally investigate or prosecute any alcohol or drug abuse patient.[facility] HospitalIn the event this information is protected by the Federal Confidentiality of Alcohol and Drug Abuse Patient Records regulations: The Federal rules restrict any use of the information to criminally investigate or prosecute any alcohol or drug abuse patient.[facility] HospitalIn the event this information is protected by the Federal Confidentiality of Alcohol and Drug Abuse Patient Records regulations: The Federal rules restrict any use of the information to criminally investigate or prosecute any alcohol or drug abuse patient.[facility] HospitalIn the event this information is protected by the Federal Confidentiality of Alcohol and Drug Abuse Patient Records regulations: The Federal rules restrict any use of the information to criminally investigate or prosecute any alcohol or drug abuse patient.[facility] HospitalIn the event this information is protected by the Federal Confidentiality of Alcohol and Drug Abuse Patient Records regulations: The Federal rules restrict any use of the information to criminally investigate or prosecute any alcohol or drug abuse patient.[facility] HospitalIn the event this information is protected by the Federal Confidentiality of Alcohol and Drug Abuse Patient Records regulations: The Federal rules restrict any use of the information to criminally investigate or prosecute any alcohol or drug abuse patient.[facility] HospitalIn the event this information is protected by the Federal Confidentiality of Alcohol and Drug Abuse Patient Records regulations: The Federal rules restrict any use of the information to criminally investigate or prosecute any alcohol or drug abuse patient.[facility] HospitalIn the event this information is protected by the Federal Confidentiality of Alcohol and Drug Abuse Patient Records regulations: The Federal rules restrict any use of the information to criminally investigate or prosecute any alcohol or drug abuse patient.[facility] HospitalIn the event this information is protected by the Federal Confidentiality of Alcohol and Drug Abuse Patient Records regulations: The Federal rules restrict any use of the information to criminally investigate or prosecute any alcohol or drug abuse patient.[facility] HospitalIn the event this information is protected by the Federal Confidentiality of Alcohol and Drug Abuse Patient Records regulations: The Federal rules restrict any use of the information to criminally investigate or prosecute any alcohol or drug abuse patient.[facility] HospitalIn the event this information is protected by the Federal Confidentiality of Alcohol and Drug Abuse Patient Records regulations: The Federal rules restrict any use of the information to criminally investigate or prosecute any alcohol or drug abuse patient.[facility] HospitalIn the event this information is protected by the Federal Confidentiality of Alcohol and Drug Abuse Patient Records regulations: The Federal rules restrict any use of the information to criminally investigate or prosecute any alcohol or drug abuse patient.[facility] HospitalIn the event this information is protected by the Federal Confidentiality of Alcohol and Drug Abuse Patient Records regulations: The Federal rules restrict any use of the information to criminally investigate or prosecute any alcohol or drug abuse patient.[facility] HospitalIn the event this information is protected by the Federal Confidentiality of Alcohol and Drug Abuse Patient Records regulations: The Federal rules restrict any use of the information to criminally investigate or prosecute any alcohol or drug abuse patient.[facility] HospitalIn the event this information is protected by the Federal Confidentiality of Alcohol and Drug Abuse Patient Records regulations: The Federal rules restrict any use of the information to criminally investigate or prosecute any alcohol or drug abuse patient.[facility] HospitalIn the event this information is protected by the Federal Confidentiality of Alcohol and Drug Abuse Patient Records regulations: The Federal rules restrict any use of the information to criminally investigate or prosecute any alcohol or drug abuse patient.[facility] HospitalIn the event this information is protected by the Federal Confidentiality of Alcohol and Drug Abuse Patient Records regulations: The Federal rules restrict any use of the information to criminally investigate or prosecute any alcohol or drug abuse patient.[facility] HospitalIn the event this information is protected by the Federal Confidentiality of Alcohol and Drug Abuse Patient Records regulations: The Federal rules restrict any use of the information to criminally investigate or prosecute any alcohol or drug abuse patient.[facility] HospitalIn the event this information is protected by the Federal Confidentiality of Alcohol and Drug Abuse Patient Records regulations: The Federal rules restrict any use of the information to criminally investigate or prosecute any alcohol or drug abuse patient.[facility] HospitalIn the event this information is protected by the Federal Confidentiality of Alcohol and Drug Abuse Patient Records regulations: The Federal rules restrict any use of the information to criminally investigate or prosecute any alcohol or drug abuse patient.[facility] HospitalIn the event this information is protected by the Federal Confidentiality of Alcohol and Drug Abuse Patient Records regulations: The Federal rules restrict any use of the information to criminally investigate or prosecute any alcohol or drug abuse patient.[facility] HospitalIn the event this information is protected by the Federal Confidentiality of Alcohol and Drug Abuse Patient Records regulations: The Federal rules restrict any use of the information to criminally investigate or prosecute any alcohol or drug abuse patient.[facility] HospitalIn the event this information is protected by the Federal Confidentiality of Alcohol and Drug Abuse Patient Records regulations: The Federal rules restrict any use of the information to criminally investigate or prosecute any alcohol or drug abuse patient.[facility] HospitalIn the event this information is protected by the Federal Confidentiality of Alcohol and Drug Abuse Patient Records regulations: The Federal rules restrict any use of the information to criminally investigate or prosecute any alcohol or drug abuse patient.[facility] HospitalIn the event this information is protected by the Federal Confidentiality of Alcohol and Drug Abuse Patient Records regulations: The Federal rules restrict any use of the information to criminally investigate or prosecute any alcohol or drug abuse patient.[facility] HospitalIn the event this information is protected by the Federal Confidentiality of Alcohol and Drug Abuse Patient Records regulations: The Federal rules restrict any use of the information to criminally investigate or prosecute any alcohol or drug abuse patient.[facility] Reason for Visit (unrecogniz ed section [...] BRNCDILAT RSPSE SPMTRY PRE&POST-BRNCDILAT ADMN Nicole Kenny, GIFT MANAGER.[facility] [address] [place] [address] Respiratory [place] [address] [place] [address] Referral ID Status Reason Start Date Expiration Date V isits Requested Visits Authorized [id number] Closed Auto-Generate d Referral 03/13/2022 04/12/2023 1 [...] exertion Procedures CONSULT TO PULM/CRITICAL CARE OFFICE/OUTPATIENT [facility] 60-74 MINUTES Nicole Kenny, GIFT MANAGER.TELECOMMUNICATOR SUPERVISOR [address] [place] [address] Referral ID Status Reason Start Date Expiration Date V isits Requested Visits Authorized [id number] Closed PCP Requested Referral 03/13/2022 03/13/2023 1 1 Reason Comments Patient Update Reason Comments F/U 3 Month Reason Comments Mouth/Lip Problem Reason Comments Pain Mouth pain x 1 week Reason Comments Patient Question Reason Comments Established Patient Specialty Diagnoses / Procedures Referred By Contac t Referred To Contact Vascular Surgery Diagnoses PAD (peripheral artery disease) (HCC) Procedures CONSULT TO VASCULAR SURGERY OFFICE/OUTPATIENT [facility] 60-74 MINUTES Ulises Hermosillo MD [address] [place] [address] [address] [place] [id number] Referral ID Status Reason Start Date Expiration Date V isits Requested Visits Authorized [id number] Closed PCP Requested Referral 05/11/2022 05/11/2023 1 1 Reason Comments New Patient Hemoptysis Reason Comments Behavioral Health Social Work Reason Comments Shortness of Breath Sent from [facility]. 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 Was sent to [facility] without O2, patient is on 2 L NC routinely Reason Onset Date Comments Population Health Navigation Outreach 04/16/2023 Navigator Kailash maaya [facility] gap outreach Reason Comments Follow [...] Care Teams (unrecognized sec tion and content) Bran Mixer Relationship Specialty Start Date End Date Ulises Hermosillo MD [facility] [place], [place] [id number] PCP - General Internal Medicine 01/25/16 Bran Mixer Relationship Specialty Start Date End Date Ulises Hermosillo MD [address] [facility] [place] [address] PCP - General Internal Medicine 01/25/16 Bran Mixer Relationship Specialty Start Date End Date Ulises Hermosillo MD [address] [facility] [place] [address] PCP - General Internal Medicine 01/25/16 Bran Mixer Relationship Specialty Start Date End Date Ulises Hermosillo MD [address] [facility] [place] [address] PCP - General Internal Medicine 01/25/16 Bran Mixer Relationship Specialty Start Date End Date Ulises Hermosillo MD [address] [facility] [place] [address] PCP - General Internal Medicine 01/25/16 Bran Mixer Relationship Specialty Start Date End Date Ulises Hermosillo MD [address] [facility] [place] [address] PCP - General Internal Medicine 01/25/16 Bran Mixer Relationship Specialty Start Date End Date Ulises Hermosillo MD [address] [facility] [place] [address] PCP - General Internal Medicine 01/25/16 Bran Mixer Relationship Specialty Start Date End Date Ulises Hermosillo MD [address] [facility] [place] [address] PCP - General Internal Medicine 01/25/16 Bran Mixer Relationship Specialty Start Date End Date Ulises Hermosillo MD [address] [facility] [place] [address] PCP - General Internal Medicine 01/25/16 Bran Mixer Relationship Specialty Start Date End Date Ulises Hermosillo MD [address] [facility] [place] [address] PCP - General Internal Medicine 01/25/16 Bran Mixer Relationship Specialty Start Date End Date Ulises Hermosillo MD [address] [facility] [place] [address] PCP - General Internal Medicine 01/25/16 Bran Mixer Relationship Specialty Start Date End Date Ulises Hermosillo MD [address] [facility] [place] [address] PCP - General Internal Medicine 01/25/16 Bran Mixer Relationship Specialty Start Date End Date Ulises Hermosillo MD [address] [facility] [place] [address] PCP - General Internal Medicine 01/25/16 Bran Mixer Relationship Specialty Start Date End Date Ulises Hermosillo MD [address] [facility] [place] [address] PCP - General Internal Medicine 01/25/16 Bran Mixer Relationship Specialty Start Date End Date Ulises Hermosillo MD [address] [facility] [place] [address] PCP - General Internal Medicine 01/25/16 Bran Mixer Relationship Specialty Start Date End Date Ulises Hermosillo MD [address] [facility] [place] [address] PCP - General Internal Medicine 01/25/16 Bran Mixer Relationship Specialty Start Date End Date Ulises Hermosillo MD [address] [facility] [place] [address] PCP - General Internal Medicine 01/25/16 Bran Mixer Relationship Specialty Start Date End Date Ulises Hermosillo MD [address] [facility] [place] [address] PCP - General Internal Medicine 01/25/16 Bran Mixer Relationship Specialty Start Date End Date Ulises Hermosillo MD [address] [facility] [place] [address] PCP - General Internal Medicine 01/25/16 Bran Mixer Relationship Specialty Start Date End Date Ulises Hermosillo MD [address] [place] [address] PCP - General Internal Medicine 01/25/16 Bran Mixer Relationship Specialty Start Date End Date Ulises Hermosillo MD [address] [place] [address] PCP - General Internal Medicine 01/25/16 Bran Mixer Relationship Specialty Start Date End Date Ulises Hermosillo MD [address] [place] [address] PCP - General Internal Medicine 01/25/16 Team [...] Joel Sauer , DO Other Provider Active Bran Mixer Relationship Specialty Start Date End Date Ulises Hermosillo MD [address] [facility] [place] [address] PCP - General Internal Medicine 01/25/16 Bran Mixer Relationship Specialty Start Date End Date Ulises Hermosillo MD [address] [facility] [place] [address] PCP - General Internal Medicine 01/25/16 Bran Mixer Relationship Specialty Start Date End Date Ulises Hermosillo MD [address] [facility] [place] [address] PCP - General Internal Medicine 01/25/16 Bran Mixer Relationship Specialty Start Date End Date Ulises Hermosillo MD [address] [facility] [place] [address] PCP - General Internal Medicine 01/25/16 Bran Mixer Relationship Specialty Start Date End Date Ulises Hermosillo MD [address] [facility] [place] [address] PCP - General Internal Medicine 01/25/16 Bran Mixer Relationship Specialty Start Date End Date Ulises Hermosillo MD [address] [facility] [place] [address] PCP - General Internal Medicine 01/25/16 Bran Mixer Relationship Specialty Start Date End Date Ulises Hermosillo MD [address] [facility] [place] [address] PCP - General Internal Medicine 01/25/16 Bran Mixer Relationship Specialty Start Date End Date Ulises Hermosillo MD [address] [facility] [place] [address] PCP - General Internal Medicine 01/25/16 Bran Mixer Relationship Specialty Start Date End Date Ulises Hermosillo MD [address] [facility] [place] [address] PCP - General Internal Medicine 01/25/16 Bran Mixer Relationship Specialty Start Date End Date Ulises Hermosillo MD [address] [facility] [place] [address] PCP - General Internal Medicine 01/25/16 Bran Mixer Relationship Specialty Start Date End Date Ulises Hermosillo MD [address] [facility] [place] [address] PCP - General Internal Medicine 01/25/16 01/14/24 Bran Mixer Relationship Specialty Start Date End Date Ulises Hermosillo MD [address] [facility] [place] [address] PCP - General Internal Medicine 01/25/16 01/14/24 Bran Mixer Relationship Specialty Start Date End Date Ulises Hermosillo MD [address] [facility] [place] [address] PCP - General Internal Medicine 01/25/16 01/14/24 Gabriella Chambers, AAMIR [address] [facility] [place] [address] Primary Service Internal Medicine 02/27/18 04/26/21 Bran Mixer Relationship Specialty Start Date End Date Ulises Hermosillo MD [address] [facility] [place] [address] PCP - General Internal Medicine 01/25/16 01/14/24 Gabriella Chambers, RN [address] [place] [address] Primary Service Internal Medicine 02/27/18 04/26/21 Care Team (unrecognized sect ion and content) Personnel Name: ULISES HERMOSILLO MD Address: Address: [address] [place] [id number]- Personnel Name: ULISES HERMOSILLO MD Address: Address: [address] [place] [address]- Care Team Personnel Name: ULISES HERMOSILLO MD Member Role: Primary Care Physician Address: Address: [address] [place] [address]- Name: Yolanda Gonzalez RN Position: RN Member Role: RN Name: ZINA GLOVER DO Position: ED Physician Address: Address: [address] [place] [address] [place] [address]- Name: BRIAN TRINIDAD DO Position: Resident Member Role: ED Physician Address: Address: [address] [place] [address] [place] [address]- Care Team Related Persons Name: MELY SERNA Address: Home [address] [place] [address] [place] Name: MELY SERNA Address: Home [address] [place] [address] [place] Name: MELY SERNA Address: Home [address] [place] [address] [place] Name: MELY SERNA Address: Home [address] [place] [address] [place] Name: MELY SERNA Address: Home [address] [place] [address] [place] Name: MELY SERNA Address: Home [address] [place] [address] [place] Name: MELY SERNA Address: Home [address] Care Team Personnel Name: ULISES HERMOSILLO MD Member Role: Primary Care Physician Address: Address: [address] [place] [address]- [place] Name: MD JOSE ROBERTO COMBS MD Position: ED Physician Member Role: ED Physician Address: Address: [facility] [address] [place] [address]- Care Team Related Persons Name: SERNAMELY Address: Home [address] [place] [address] [place] Name: MELY SERNA Address: Home [address] [place] [address] [place] Name: MELY SERNA Address: Home [address] [place] [address] [place] Name: MELY SERNA Address: Home [address] Name: CRIS SERNAFER Address: Home [address] [place] [address] [place] Name: MELY SERNA Address: Home [address] [place] [address] [place] Name: DAPHNE MELY Address: Home [address] Goals (unrecognized section and content) Goals [...] BE BASED ON THE PRIMARY CLINICAL RECORDS. [employer] [facility]. provides no warranty or guarantee of the accuracy or completeness of information in this document.
[2025-10-26 08:32] LABS: Hematocrit 30.7 % (37-47); Hemoglobin 8.8 g/dL (12.0-15.0); Mean Corp Hgb Conc 28.7 g/dL (32-36); Mean Corpuscular Volume 83.7 fL (81-99); Mean Platelet Vol. 9.7 fl (6.2-12.0); Platelet Count 547 K/mm3 (150-450); RBC Distribution Width CV 18.2 % (11.6-14.6); RBC Distribution Width SD 55.1 fl (35.1-43.9); Red Blood Count 3.67 M/mm3 (4.2-5.4); White Blood Count 7.8 K/mm3 (4.4-11.0)
[2025-10-26 08:56] LABS: Anion Gap 8 (5-15); BUN 19 mg/dL (4-19); BUN/Creat Ratio 27.2 RATIO (10-20); Calcium,Total 9.0 mg/dL (7.6-11.0); Carbon Dioxide 28.3 mmol/L (21.0-32.0); Chloride 105 mmol/L (98-108); Glucose 97 mg/dL (70-99); Potassium 4.8 mmol/L (3.3-5.1)
== END ==
LOC: OLS.SW 05:00
PROVIDERS: Visit Provider Family Medicine
DX: I10 Essential (primary) hypertension (principal)
CPT/HCPCS: 36415; 80048; 84443; 85027

== ENCOUNTER → 2025-11-02 05:00 | Outpatient (REF) | payer MEDICARE, MEDICAID, SELFPAY ==
--- OUTSIDE RECORDS SUMMARY | 2025-11-02 04:09 | XMS RPT_ITS | CCD ---
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 Role Phone PROVIDER, UNKNOWN Unavailable Unavailable [...] Hermosillo MD, Ulises Deal Primary Care Provider [phone] Rashad Hoover RN, Gabriella Unavailable EMMA QUEEN DO Primary Care Physician MARIELLA ESTEBAN MD, DR PEDRAZA Attending Unav ailable BERNICE DO, EMMA M Primary Care Unavailable RAYMOND RAMOS MD Consulting Unavailable JENNIEEY DO, EMMA M Primary Care Unavailable SOSA MONTAGUESERVICE DELIVERY DIRECTOR, ELLEN Attending Unavailab lesly FANG MD, DR [...] Facility (1 source) PHENobarbital Drug Allergy 01-05-2023 [facility] (1 source) PHENobarbital Drug Allergy 01-05-2023 [facility] Repository Medications Current Medications Medication Drug Class(es) Dates Sig (Normalized) Sig (Original) albuterol 0.21 mg/ml inhalation solution (20 sources) beta2-Adrenergic Agonist Start: 01-11-2025 take 1 dose by inhalation four times daily albuterol 0.63 mg/3 mL (0.021%) inhalation solution Dose : 0.63 mg = 3 mL, Inhalation, QID, # 90 mL, 1 Refill(s), Pharmacy: [facility]/pharmacy #[id number], 167.6, cm, 01/11/25 11:11:00 EST, Height, [...] # 18 gram(s), 11 Refill(s), Pharmacy: [facility]/pharmacy #[id number], COPD with chronic bronchitis, 165.1, cm, 03/04/25 [...] # 18 gram(s), 11 Refill(s), Pharmacy: [facility]/pharmacy #[id number], COPD with chronic bronchitis, 165.1, cm, [...] # 30 tab(s), 11 Refill(s), Pharmacy: [facility]/pharmacy #[id number], 165, cm, 11/30/24 9:43:00 EST, Height, [...] # 90 tab(s), 3 Refill(s), Pharmacy: [facility]/pharmacy #[id number], 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, 162.5, cm, 10/23/24 13:20:00 EST, Height, kg, 10/23/24 13:20:00 EST, Dosing Weight Start Date: 10/23/24 Status: Ordered Medication Dispense Status: Completed Quantity: 90.0 Unit: tab(s) Total Allowed Fills: 4 Fills Dispensed: 0 Indications: Presence of coronary angioplasty implant and graft; Atherosclerotic heart disease of [place] coronary artery without angina pectoris; Start: 05-02-2022 [...] # 90 tab(s), 0 Refill(s), Pharmacy: [facility]/pharmacy #[id number], 165.1, cm, 03/04/25 7:59:00 EDT, Height, [...] cap(s), 0 Refill(s), 05/08/22 11:02:00 EDT, [id number] 165.1, cm, 05/02/22 9:53:00 EDT, Height, 60 Start Date: 05/05/22 Stop Date: 05/08/22 Status: Ordered clopidogrel 75 mg oral tablet (20 sources) [id number] Platelet Inhibitor Start: 10-23-2024 clopi dogrel 75 mg oral tablet Dose : 75 mg = 1 tab(s), Oral, Daily, # 90 tab(s), 3 Refill(s), Pharmacy: [facility]/pharmacy #[id number], 162.5, cm, 10/23/24 13:20:00 EST, Height, [...] Comment on above: Take 1 tablet by [facility] once daily. doxycycline hyclate 100 mg oral [...] 30 tab(s), 0 Refill(s), Pharmacy: [facility], 165.1, cm, 06/12/25 19:25:00 EDT, [...] take 1 puff(s) by inhalation once daily yoirnpcoqnv-foygqmplj-yodaxvqn (TRELEGY ELLIPTA) 200-62.5-25 mcg inhalation powder Inhale 1 Puff as instructed once daily. 60 Each 11/26/2022 12/26/2022 Active Start: 07-23-2022 End: 11-26-2022 take 1 puff(s) by inhalation once daily pxqsxfmxdte-lbicuylxq-bqzxmqez (TRELEGY ELLIPTA) 200-62.5-25 mcg inhalation powder Inhale 1 Puff as instructed once daily. 60 Each 07/23/2022 11/26/2022 Discontinued Start: 07-23-2022 take 1 puff(s) by inhalation once daily brwdbelzfvw-dfiaotxvq-xzcjcipr (TRELEGY ELLIPTA) 200-62.5-25 mcg inhalation powder Inhale 1 Puff as instructed once daily. 60 Each 07/23/2022 Active Start: 07-23-2022 End: 08-22-2022 take 1 puff(s) by inhalation once daily dzsmlnscyjo-mmsfhmhkz-ybalbwec (TRELEGY ELLIPTA) 200-62.5-25 mcg inhalation powder Inhale 1 Puff as instructed once daily. 60 Each 07/23/2022 08/22/2022 Active Start: 06-06-2022 End: 07-20-2022 take 1 puff(s) by inhalation once daily aiffcbtrotg-rizvqfoqt-ykstctjr (TRELEGY ELLIPTA) 200-62.5-25 mcg inhalation powder Inhale 1 Puff as instructed once daily. 60 Each 06/06/2022 07/20/2022 Discontinued Start: 06-06-2022 take 1 puff(s) by inhalation once daily kcmuxfohbky-ccjtmekzr-wkgtosws (TRELEGY ELLIPTA) 200-62.5-25 mcg inhalation powder Inhale 1 Puff as instructed once daily. 60 Each 06/06/2022 Active Start: 06-06-2022 End: 07-06-2022 take 1 puff(s) by inhalation once daily ehgwcmmwqoy-zpdvvqvim-mzaqvmzd (TRELEGY ELLIPTA) 200-62.5-25 mcg inhalation powder Inhale 1 Puff as instructed once daily. 60 Each 06/06/2022 07/06/2022 Active Comment on above: Inhale 1 Puff as ins tructed once daily. furosemide 40 mg oral tablet (4 sources) Loop Diuretic Start: 06-15-2025 Lasix 40 mg oral tablet Dose : 40 mg = 1 tab(s), Oral, qDay, # 30 tab(s), 0 Refill(s), Pharmacy: [facility], 165.1, cm, 06/12/25 19:25:00 EDT, [...] # 90 cap(s), 3 Refill(s), Pharmacy: [facility]/pharmacy #[id number], GERD (gastroesophageal reflux disease), 162.5, cm, 10/23/24 [...] End: 03-14-2025 prednisone 10mg tab (TAPER) Taper 58-97-84-24-56-31-10-5 mg x 1 day until gone, Oral, qAM, # 18 tab(s), 0 Refill(s), Pharmacy: [facility]/pharmacy #[id number], 165.1, cm, 03/04/25 7:59:00 EDT, Height, [...] 0 Refill(s), 05/08/22 11:01:00 EDT, Pharmacy: [facility]/pharmacy #[id number], 165.1, cm, 05/02/22 9:53:00 EDT, Height Start Date: 05/05/22 Stop Date: 05/08/22 Status: Ordered Comment on above: Take two daily for 5 days then one daily for 10 days QUEtiapine 25 mg oral tablet (2 sources) Atypical Antipsychotic Start: 06-15-2025 Seroquel 25 mg oral tablet Dose : 25 mg = 1 tab(s), Oral, qHS, # 30 tab(s), 0 Refill(s), Pharmacy: [facility]/pharmacy #[id number], 165.1, cm, 06/12/25 19:25:00 EDT, Height, [...] # 30 tab(s), 11 Refill(s), Pharmacy: [facility]/pharmacy #[id number], 165, cm, 11/30/24 9:43:00 EST, Height, [...] 180 tab(s), 3 Refill(s), Pharmacy: [facility], 165.1, cm, 06/12/25 19:25:00 EDT, Height, kg, 06/12/25 19:25:00 EDT, Dosing Weight Start Date: 06/15/25 Status: Ordered Medication Dispense Status: Completed Quantity: 180.0 Unit: tab(s) Total Allowed Fills: 4 Fills Dispensed: 0 Start: 01-29-2025 take 1 tablet by sukumar th twice daily Entresto 24 mg-26 mg oral tablet Dose = 1 tab(s), Oral, BID, # 180 tab(s), 3 Refill(s), Pharmacy: [facility]/pharmacy #[id number], 162.5, cm, 01/21/25 13:39:00 EDT, Height, kg, 01/21/25 13:39:00 EDT, Dosing Weight Start Date: 01/29/25 Status: Ordered Quantity: 180.0 Unit: tab(s) Repeat number: 4 Symbicort 160 mcg-4.5 mcg/inh Inhaler (3 sources) Start: 05-05-2022 take 1 dose by inhalation twice daily Symbicort 160 mcg-4.5 mcg/inh Inhaler Dose = 2 puff(s), Inhalation, BID, # 10.2 gram(s), 0 Refill(s), Pharmacy: [facility]/pharmacy #[id number], 165.1, cm, 05/02/22 9:53:00 EDT, Height Start Date: 05/05/22 Status: Ordered traZODone hydrochloride 100 mg oral tablet (20 sources) Serotonin Reuptake Inhibitor Start: 10-23-2024 traZODone 100 mg oral tablet Dose : 100 mg = 1 tab(s), Oral, qHS, # 90 tab(s), 3 Refill(s), Pharmacy: [facility]/pharmacy #[id number], Psychophysiologic insomnia, 162.5, cm, 10/23/24 13:20:00 [...] # 60 EA, 5 Refill(s), Pharmacy: [facility]/pharmacy #[id number], 162.5, cm, 01/21/25 13:39:00 EDT, Height, [...] # 60 EA, 5 Refill(s), Pharmacy: [facility]/pharmacy #4605, 162.5, cm, 01/21/25 13:39:00 EDT, Height, [...] Discontinued Start: 07-29-2017 take 1 capsule by [facility] three times daily as needed Hydroxyzine Pamoate (Vistaril) 50 mg capsule Active 50 MG PO 3 TIMES DAILY NEEDED July 28, 2017 11:00pm Comment on above: Take 1 capsule by [facility] three times daily as needed for Anxiety. [...] 30 tab(s), 11 Refill(s), Pharmacy: [facility], 165.1, cm, 06/12/25 19:25:00 EDT, [...] # 30 tab(s), 11 Refill(s), Pharmacy: [facility]/pharmacy #[id number], 165, cm, 11/30/24 9:43:00 EST, Height, kg, 11/30/24 9:43:00 EST, Dosing Weight Start Date: 11/30/24 Status: Ordered Quantity: 30.0 Unit: tab(s) Repeat number: 12 Start: 02-01-2017 End: 09-27-2021 take 1 tablet by mouth twice daily metoprolol tartrate, short acting, (LOPRESSOR) 25 mg tablet Indications: Essential hypertension Take 1 tablet by mouth twice daily. 60 tablet 5 07/06/2020 09/27/2021 Discontinued nystatin [id number] unt/ml oral suspension (11 sources) Polyene Antifungal [...] Coronary atherosclerosis; Translations: [Atherosclerotic heart disease of [place] coronary artery without angina pectoris] Onset: 1 [...] 10-06-2019 Chronic Other aftercare (1 source) Other half-way (current) drug therapy; Translations: [Other medical language specialist (current) drug therapy] Onset: 03-04-2025 Episodic Other aftercare (1 source) Encounter for therapeutic drug level monitoring; Translations: [Encounter for therapeutic drug level monitoring] Onset: 03-04-2025 Episodic Other aftercare (1 source) corporate giving manager (current) use of antithrombotics/antip latelets; Translations: [penitentiary (current) use of antithrombotics/antip latelets] Onset: 03-04-2025 Episodic Other aftercare (1 source) penitentiary (current) use of aspirin; Translations: [penitentiary (current) use of aspirin] Onset: 03-04-2025 Episodic Other aftercare (1 source) penitentiary (current) use of inhaled steroids; Translations: [corporate giving manager (current) use of inhaled steroids] Onset: 03-04-2025 [...] width (RBC) [Ratio] 17.0 % High 11.6-14.6 [facility] Comment on above: Order Comment: 108 Performed By: #### L 501.9310, L500.4050, L100.0500, L500.4100, L501.9985, L501.9520 #### [facility] [address] [place], [address] Hematocrit (Bld) [Volume fraction] 36.2 % Low 37-47 [facility] Comment on above: Order Comment: 108 Performed By: #### L [id number], L500.4050, L100.0500, L500.4100, L501.9985, L501.9520 #### [facility] [address] [place], [address] Hemoglobin (Bld) [Mass/Vol] 11.5 g/dL Low 12.0-15.0 [facility] Comment on above: Order Comment: 108 Performed By: #### L [id number], L500.4050, L100.0500, L500.4100, L501.9985, L501.9520 #### [facility] [address] [place], [address] MCH (RBC) [Entitic mass] 29.3 pg Normal 27.0-32.0 [facility] Comment on above: Order Comment: 108 Performed By: #### L [id number], L500.4050, L100.0500, L500.4100, L501.9985, L501.9520 #### [facility] [address] [place], [address] MCHC (RBC) [Mass/Vol] 31.8 g/dL Low 32-36 [facility] Comment on above: Order Comment: 108 Performed By: #### L [id number], L500.4050, L100.0500, L500.4100, L501.9985, L501.9520 #### [facility] [address] [place], [address] MCV (RBC) [Entitic vol] 92.3 fL Normal 81-99 [facility] Comment on above: Order Comment: 108 Performed By: #### L [id number], L500.4050, L100.0500, L500.4100, L501.9985, L501.9520 #### [facility] [address] [place], [address] Platelet mean volume (Bld) [Entitic vol] 10.8 fL Normal 6.2-12.0 [facility] Comment on above: Order Comment: 108 Performed By: #### L 501.9310, L500.4050, L100.0500, L500.4100, L501.9985, L501.9520 #### [facility] [address] [place], [address] Platelets (Bld) [#/Vol] 385 10*3/uL Normal 150-450 [facility] Comment on above: Order Comment: 108 Performed By: #### L 501.9310, L500.4050, L100.0500, L500.4100, L501.9985, L501.9520 #### [facility] [address] [place], [address] RBC (Bld) [#/Vol] 3.92 10*6/uL Low 4.2-5.4 [facility] Comment on above: Order Comment: 108 Performed By: #### L 501.9310, L500.4050, L100.0500, L500.4100, L501.9985, L501.9520 #### [facility] [address] [place], [address] RDW SD 57.4 fl High 35.1-43.9 [facility] Comment on above: Order Comment: 108 Performed By: #### L 501.9310, L500.4050, L100.0500, L500.4100, L501.9985, L501.9520 #### [facility] [address] [place], [address] WBC (Bld) [#/Vol] 6.5 10*3/uL Normal 4.4-11.0 [facility] Comment on above: Order Comment: 108 Performed By: #### L 501.9310, L500.4050, L100.0500, L500.4100, L501.9985, L501.9520 #### [facility] [address] [place], [address] Comprehensive Metabolic Prof ilon 07-13-2025 Albumin [Mass/Vol] 3.5 g/dL Normal 3.4-4.8 [facility] Comment on above: Order Comment: 108 Performed By: #### L 501.9310, L500.4050, L100.0500, L500.4100, L501.9985, L501.9520 #### [facility] [address] [place], [address] Albumin/Globulin [Mass ratio] 1.2 {ratio} Normal 0.9-2.4 [facility] Comment on above: Order Comment: 108 Performed By: #### L 501.9310, L500.4050, L100.0500, L500.4100, L501.9985, L501.9520 #### [facility] [address] [place], [address] ALK PHOS 62 U/L Normal 35-104 [facility] Comment on above: Order Comment: 108 Performed By: #### L 501.9310, L500.4050, L100.0500, L500.4100, L501.9985, L501.9520 #### [facility] [address] [place], [address] ALT [Catalytic activity/Vol] U/L Normal <=34 [facility] Comment on above: Order Comment: 108 Performed By: #### L 501.9310, L500.4050, L100.0500, L500.4100, L501.9985, L501.9520 #### [facility] [address] [place], [address] AST [Catalytic activity/Vol] 17 U/L Normal <=31 [facility] Comment on above: Order Comment: 108 Performed By: #### L 501.9310, L500.4050, L100.0500, L500.4100, L501.9985, L501.9520 #### [facility] [address] [place], [address] Bilirubin [Mass/Vol] 0.17 mg/dL Normal 0.00-1.30 [facility] Comment on above: Order Comment: 108 Performed By: #### L 501.9310, L500.4050, L100.0500, L500.4100, L501.9985, L501.9520 #### [facility] [address] [place], [address] BUN/CRE 31.1 RATIO High 10-20 [facility] Comment on above: Order Comment: 108 Performed By: #### L 501.9310, L500.4050, L100.0500, L500.4100, L501.9985, L501.9520 #### [facility] [address] [place], [address] Calcium [Mass/Vol] 9.1 mg/dL Normal 7.6-11.0 [facility] Comment on above: Order Comment: 108 Performed By: #### L 501.9310, L500.4050, L100.0500, L500.4100, L501.9985, L501.9520 #### [facility] [address] [place], [address] Chloride [Moles/Vol] 103 mmol/L Normal 98-108 [facility] Comment on above: Order Comment: 108 Performed By: #### L 501.9310, L500.4050, L100.0500, L500.4100, L501.9985, L501.9520 #### [facility] [address] [place], [address] CO2 [Moles/Vol] 25.7 mmol/L Normal 21.0-32.0 [facility] Comment on above: Order Comment: 108 Performed By: #### L 501.9310, L500.4050, L100.0500, L500.4100, L501.9985, L501.9520 #### [facility] [address] [place], [address] Creatinine [Mass/Vol] 0.85 mg/dL Normal 0.70-1.20 [facility] Comment on above: Order Comment: 108 Performed By: #### L 501.9310, L500.4050, L100.0500, L500.4100, L501.9985, L501.9520 #### [facility] [address] [place], [address] GAP 9 Normal 5-15 [facility] Comment on above: Order Comment: 108 Performed By: #### L 501.9310, L500.4050, L100.0500, L500.4100, L501.9985, L501.9520 #### [facility] [address] [place], [address] GFR/1.73 sq M.predicted among non-blacks MDRD (S/P/Bld) [Vol rate/Area] 74 mL/min/{1.73_m2} Normal >60 [facility] Comment on above: Order Comment: 108 Result Comment: mL/m in/1.73m2 CKD-EPI Creatinine Equation (2020) Performed By: #### L 501.9310, L500.4050, L100.0500, L500.4100, L501.9985, L501.9520 #### [facility] [address] [place], [address] Globulin (S) [Mass/Vol] 3.0 g/dL Normal 2.2-4.2 [facility] Comment on above: Order Comment: 108 Performed By: #### L 501.9310, L500.4050, L100.0500, L500.4100, L501.9985, L501.9520 #### [facility] [address] [place], [address] Glucose [Mass/Vol] 98 mg/dL Normal 70-99 [facility] Comment on above: Order Comment: 108 Performed By: #### L 501.9310, L500.4050, L100.0500, L500.4100, L501.9985, L501.9520 #### [facility] [address] [place], [address] Potassium [Moles/Vol] 4.5 mmol/L Normal 3.3-5.1 [facility] Comment on above: Order Comment: 108 Performed By: #### L 501.9310, L500.4050, L100.0500, L500.4100, L501.9985, L501.9520 #### [facility] [address] [place], [address] Sodium [Moles/Vol] 138 mmol/L Normal 133-145 [facility] Comment on above: Order Comment: 108 Performed By: #### L 501.9310, L500.4050, L100.0500, L500.4100, L501.9985, L501.9520 #### [facility] [address] [place], [address] T PROT 6.4 g/dL Normal 5.9-8.4 [facility] Comment on above: Order Comment: 108 Performed By: #### L 501.9310, L500.4050, L100.0500, L500.4100, L501.9985, L501.9520 #### [facility] [address] [place], [address] Urea nitrogen [Mass/Vol] 27 mg/dL High 4-19 [facility] Comment on above: Order Comment: 108 Performed By: #### L 501.9310, L500.4050, L100.0500, L500.4100, L501.9985, L501.9520 #### [facility] [address] [place], [address] Hemoglobin A1con 07-13-2025 HbA1c (Bld) [Mass fraction] 5.7 % Normal <=5.6 [facility] Comment on above: Order Comment: 108 Result Comment: Norm al < 5.7 % Prediabetic 5.7 - 6.4 % Diabetic >or= 6.5 % Please note range changes. Performed By: #### L 501.9310, L500.4050, L100.0500, L500.4100, L501.9985, L501.9520 #### [facility] [address] [place], [address] Lipid Profileon 07-13-2025 CHOL:HDL 2.44 Normal [facility] Comment on above: Order Comment: 108 Performed By: #### L 501.9310, L500.4050, L100.0500, L500.4100, L501.9985, L501.9520 #### [facility] [address] [place], [address] Cholesterol [Mass/Vol] 127 mg/dL Normal <=200 [facility] Comment on above: Order Comment: 108 Result Comment: Chol esterol level, Desirable <200 mg/dL Borderline high cholesterol 200-239 mg/dL High cholesterol >=240 mg/dL Recommendations of the NCEP Adult Treatment Panel for the following risk-cutoff thresholds for the [place] population. Performed By: #### L 501.9310, L500.4050, L100.0500, L500.4100, L501.9985, L501.9520 #### [facility] [address] [place], [address] Cholesterol in HDL [Mass/Vol] 52 mg/dL Normal [facility] Comment on above: Order Comment: 108 Result Comment: [place] onal Cholesterol Education Program (NCEP) guidelines: <40 mg/dL: Low HDL-cholesterol (major risk factor for CHD) >= 60 mg/dL: High HDL-cholesterol (negative risk factor for CHD) HDL-cholesterol is affected by a number of factors, e.g. smoking, exercise, hormones, sex and age. Performed By: #### L 501.9310, L500.4050, L100.0500, L500.4100, L501.9985, L501.9520 #### [facility] [address] [place], [address] Cholesterol in LDL [Mass/Vol] 52 mg/dL Normal [facility] Comment on above: Order Comment: 108 Result Comment: Bord xgpjyl=629-155 mg/dL Higher Nzvs=611 mg/dL or greater Friedwald Equation for LDL-C Performed By: #### L 501.9310, L500.4050, L100.0500, L500.4100, L501.9985, L501.9520 #### [facility] [address] [place], [address] Cholesterol in VLDL [Mass/Vol] 23 mg/dL Normal 5-40 [facility] Comment on above: Order Comment: 108 Performed By: #### L 501.9310, L500.4050, L100.0500, L500.4100, L501.9985, L501.9520 #### [facility] [address] [place], [place], [address] Triglyceride [Mass/Vol] 113 mg/dL Normal [facility] Comment on above: Order Comment: 108 Result Comment: The drugs N-Acetylcysteine and Metamizole may falsely depress this assay. Normal range: <150 mg/dL Borderline High: 150-199 mg/dL High: 200-499 mg/dL Very High: >500 mg/dL Performed By: #### L 501.9310, L500.4050, L100.0500, L500.4100, L501.9985, L501.9520 #### [facility] [address] [place], [address] T4 Total, Thyroxinon 025 T4 [Mass/Vol] 6.1 ug/dL Normal 4.8-13.9 [facility] Comment on above: Order Comment: 108 Performed By: #### L 501.9310, L500.4050, L100.0500, L500.4100, L501.9985, L501.9520 #### [facility] [address] [place], [place], [address] Thyroid Stim Hormone (TSH)on 07-13-2025 TSH 3.620 uIU/mL Normal 0.300-4.200 [facility] Comment on above: Order Comment: 108 Performed By: #### L 501.9310, L500.4050, L100.0500, L500.4100, L501.9985, L501.9520 #### [facility] [address] [facility] [place], [place], [id number] .Auto Diffon 07-10-2025 Basophil, Absolute 0.1 10 3/mcL Normal 0.0-0.3 [facility] Comment on above: Performed By: #### A DIFF, PBNP, TROPHS, CBC, GFR, MDW, ANEU, BMP #### [address] [address] Basophils/100 WBC (Bld) 1.1 % Normal 0.0-2.5 [facility] Comment on above: Performed By: #### A DIFF, PBNP, TROPHS, CBC, GFR, MDW, ANEU, BMP #### [address] [address] Eosinophil, Absolute 0.3 10 3/mcL Normal 0.0-0.7 [facility] Comment on above: Performed By: #### A DIFF, PBNP, TROPHS, CBC, GFR, MDW, ANEU, BMP #### [address] [address] Eosinophils/100 WBC (Bld) 3.2 % Normal 0.0-6.0 [facility] Comment on above: Performed By: #### A DIFF, PBNP, TROPHS, CBC, GFR, MDW, ANEU, BMP #### [address] [address] Lymphocyte, Absolute 2.6 10 3/mcL Normal 0.9-4.3 [facility] Comment on above: Performed By: #### A DIFF, PBNP, TROPHS, CBC, GFR, MDW, ANEU, BMP #### [address] [address] Lymphocytes/100 WBC (Bld) 31.2 % Normal 20.0-40.0 [facility] Comment on above: Performed By: #### A DIFF, PBNP, TROPHS, CBC, GFR, MDW, ANEU, BMP #### [address] [address] Monocyte, Absolute 1.2 10 3/mcL Normal 0.1-1.4 [facility] Comment on above: Performed By: #### A DIFF, PBNP, TROPHS, CBC, GFR, MDW, ANEU, BMP #### [address] [address] Monocytes/100 WBC (Bld) 13.9 % High 2.0-13.0 [facility] Comment on above: Performed By: #### A DIFF, PBNP, TROPHS, CBC, GFR, MDW, ANEU, BMP #### [address] [address] Neutrophils/100 WBC (Bld) 50.6 % Normal 50.0-75.0 [facility] Comment on above: Performed By: #### A DIFF, PBNP, TROPHS, CBC, GFR, MDW, ANEU, BMP #### [address] [place], [place] [address] .GFRon 07-10-2025 Estimated Glomerular Filtration Rate 71 ml/min/1.73sqm Normal [facility] Comment on above: Result Comment: [...] TROPHS, CBC, GFR, MDW, ANEU, BMP #### [address] [address] .NEUABSon 07-10-2025 Neutrophil, Absolute 4.2 10 3/mcL Normal 2.3-8.1 [facility] Comment on above: Performed By: #### A DIFF, PBNP, TROPHS, CBC, GFR, MDW, ANEU, BMP #### [address] [place], [place] [address] CBCon 07-10-2025 Erythrocyte distribution width (RBC) [Ratio] 17.7 % High 11.5-15.5 [facility] Comment on above: Performed By: #### A DIFF, PBNP, TROPHS, CBC, GFR, MDW, ANEU, BMP #### [id number] [place], [place] [address] Hematocrit (Bld) [Volume fraction] 35.3 % Normal 34.0-46.0 [facility] Comment on above: Performed By: #### A DIFF, PBNP, TROPHS, CBC, GFR, MDW, ANEU, BMP #### [address] [address] Hgb 11.4 G/dL Low 12.0-16.0 [facility] Comment on above: Performed By: #### A DIFF, PBNP, TROPHS, CBC, GFR, MDW, ANEU, BMP #### [place] [address] MCH (RBC) [Entitic mass] 29.5 pg Normal 27.0-33.0 [facility] Comment on above: Performed By: #### A DIFF, PBNP, TROPHS, CBC, GFR, MDW, ANEU, BMP #### [address] [address] MCHC 32.4 G/dL Normal 32.0-36.0 [facility] Comment on above: Performed By: #### A DIFF, PBNP, TROPHS, CBC, GFR, MDW, ANEU, BMP #### [address] [address] MCV (RBC) [Entitic vol] 91.1 fL Normal 80.0-99.0 [facility] Comment on above: Performed By: #### A DIFF, PBNP, TROPHS, CBC, GFR, MDW, ANEU, BMP #### [address] [address] Platelet 383 10 3/mcL Normal 150-450 [facility] Comment on above: Performed By: #### A DIFF, PBNP, TROPHS, CBC, GFR, MDW, ANEU, BMP #### [address] [address] Platelet mean volume (Bld) [Entitic vol] 8.4 fL Normal 6.6-10.5 [facility] Comment on above: Performed By: #### A DIFF, PBNP, TROPHS, CBC, GFR, MDW, ANEU, BMP #### [place] [address] RBC 3.87 10 6/mcL Low 4.10-5.30 [facility] Comment on above: Performed By: #### A DIFF, PBNP, TROPHS, CBC, GFR, MDW, ANEU, BMP #### [address] [address] WBC 8.3 10 3/mcL Normal 4.5-10.8 [facility] Comment on above: Performed By: #### A DIFF, PBNP, TROPHS, CBC, GFR, MDW, ANEU, BMP #### [address] [address] CMPon 07-10-2025 ALT [Catalytic activity/Vol] 13 U/L Low 14-59 [facility] Comment on above: Performed By: #### A DIFF, PBNP, TROPHS, CBC, GFR, MDW, ANEU, BMP #### [address] [address] Albumin Level 2.7 G/dL Low 3.4-4.8 [facility] Comment on above: Performed By: #### A DIFF, PBNP, TROPHS, CBC, GFR, MDW, ANEU, BMP #### [address] [address] Albumin/Globulin [Mass ratio] 0.8 {ratio} Low 1.1-2.5 [facility] Comment on above: Performed By: #### A DIFF, PBNP, TROPHS, CBC, GFR, MDW, ANEU, BMP #### [address] [address] ALP [Catalytic activity/Vol] 72 U/L Normal 40-135 [facility] Comment on above: Performed By: #### A DIFF, PBNP, TROPHS, CBC, GFR, MDW, ANEU, BMP #### [address] [address] AST [Catalytic activity/Vol] 15 U/L Normal 10-40 [facility] Comment on above: Performed By: #### A DIFF, PBNP, TROPHS, CBC, GFR, MDW, ANEU, BMP #### [address] [address] Bili Total 0.2 mg/dL Normal 0.2-1.0 [facility] Comment on above: Result Comment: Use of this assay is not recommended for patients undergoing treatment with eltrombopag due to the potential for falsely elevated results. Performed By: #### A DIFF, PBNP, TROPHS, CBC, GFR, MDW, ANEU, BMP #### [address] [address] BUN/Creatinine Ratio 26 ratio Normal 7-27 [facility] Comment on above: Performed By: #### A DIFF, PBNP, TROPHS, CBC, GFR, MDW, ANEU, BMP #### [place] [address] Calcium [Mass/Vol] 8.6 mg/dL Normal 8.4-10.2 [facility] Comment on above: Performed By: #### A DIFF, PBNP, TROPHS, CBC, GFR, MDW, ANEU, BMP #### [address] [address] Chloride [Moles/Vol] 107 mmol/L Normal 98-107 [facility] Comment on above: Performed By: #### A DIFF, PBNP, TROPHS, CBC, GFR, MDW, ANEU, BMP #### [address] [address] CO2 [Moles/Vol] 37 mmol/L High 23-31 [facility] Comment on above: Performed By: #### A DIFF, PBNP, TROPHS, CBC, GFR, MDW, ANEU, BMP #### [address] [address] Creatinine [Mass/Vol] 0.88 mg/dL Normal 0.51-0.95 [facility] Comment on above: Performed By: #### A DIFF, PBNP, TROPHS, CBC, GFR, MDW, ANEU, BMP #### [address] [address] Electrolyte Balance 0.0 mEq/L Low 4.0-15.0 [facility] Comment on above: Performed By: #### A DIFF, PBNP, TROPHS, CBC, GFR, MDW, ANEU, BMP #### [address] [address] Globulin 3.4 G/dL Normal 2.7-4.4 [facility] Comment on above: Performed By: #### A DIFF, PBNP, TROPHS, CBC, GFR, MDW, ANEU, BMP #### [address] [address] Glucose [Mass/Vol] 111 mg/dL High 83-110 [facility] Comment on above: Performed By: #### A DIFF, PBNP, TROPHS, CBC, GFR, MDW, ANEU, BMP #### [address] [address] Potassium [Moles/Vol] 4.4 mmol/L Normal 3.5-5.1 [facility] Comment on above: Performed By: #### A DIFF, PBNP, TROPHS, CBC, GFR, MDW, ANEU, BMP #### [address] [address] Sodium [Moles/Vol] 144 mmol/L Normal 136-145 [facility] Comment on above: Performed By: #### A DIFF, PBNP, TROPHS, CBC, GFR, MDW, ANEU, BMP #### [address] [address] Total Protein 6.1 G/dL Low 6.4-8.2 [facility] Comment on above: Performed By: #### A DIFF, PBNP, TROPHS, CBC, GFR, MDW, ANEU, BMP #### [address] [address] Urea nitrogen [Mass/Vol] 23 mg/dL High 7-18 [facility] Comment on above: Performed By: #### A DIFF, PBNP, TROPHS, CBC, GFR, MDW, ANEU, BMP #### [address] [place], [place] [address] LABORATORYOrdered By: SYSTEM SYSTEM on 07-10-2025 Albumin [...] 07-10-2025 Magnesium [Mass/Vol] 2.0 mg/dL Normal 1.8-2.4 [facility] Comment on above: Performed By: #### A DIFF, PBNP, TROPHS, CBC, GFR, MDW, ANEU, BMP #### [address] [address] .Auto Diffon 07-09-2025 Basophil, Absolute 0.1 10 3/mcL Normal 0.0-0.3 [facility] Comment on above: Performed By: #### M RSAPCR #### [address] [address] #### CVFLURV #### [address] [address] Basophils/100 WBC (Bld) 0.9 % Normal 0.0-2.5 [facility] Comment on above: Performed By: #### M RSAPCR #### [address] [address] #### CVFLURV #### [address] [address] Eosinophil, Absolute 0.1 10 3/mcL Normal 0.0-0.7 [facility] Comment on above: Performed By: #### M RSAPCR #### [place] [address] #### CVFLURV #### [address] [address] Eosinophils/100 WBC (Bld) 1.3 % Normal 0.0-6.0 [facility] Comment on above: Performed By: #### M RSAPCR #### [place] [address] #### CVFLURV #### [address] [address] Lymphocyte, Absolute 1.3 10 3/mcL Normal 0.9-4.3 [facility] Comment on above: Performed By: #### M RSAPCR #### [place] [address] #### CVFLURV #### [address] [address] Lymphocytes/100 WBC (Bld) 12.9 % Low 20.0-40.0 [facility] Comment on above: Performed By: #### M RSAPCR #### [place] [address] #### CVFLURV #### [address] [address] Monocyte, Absolute 1.1 10 3/mcL Normal 0.1-1.4 [facility] Comment on above: Performed By: #### M RSAPCR #### [place] [address] #### CVFLURV #### [address] [address] Monocytes/100 WBC (Bld) 11.1 % Normal 2.0-13.0 [facility] Comment on above: Performed By: #### M RSAPCR #### [place] [address] #### CVFLURV #### [address] [address] Neutrophils/100 WBC (Bld) 73.8 % Normal 50.0-75.0 [facility] Comment on above: Performed By: #### M RSAPCR #### [place] [address] #### CVFLURV #### [address] [address] .GFRon 07-09-2025 Estimated Glomerular Filtration Rate 93 ml/min/1.73sqm Normal [facility] Comment on above: Result Comment: [...] results. Performed By: #### M RSAPCR #### [place] [address] #### CVFLURV #### [address] [address] .MDWon 07-09-2025 Monocyte Distribution Width 17.29 Normal 0.00-20.00 [facility] Comment on above: Result Comment: For ED adult patients suspected of sepsis, MDW<=20.0 does not rule out sepsis or risk of sepsis Performed By: #### M RSAPCR #### [place] [address] #### CVFLURV #### [address] [address] .NEUABSon 07-09-2025 Neutrophil, Absolute 7.3 10 3/mcL Normal 2.3-8.1 [facility] Comment on above: Performed By: #### M RSAPCR #### [place] [address] #### CVFLURV #### [address] [address] BMPon 07-09-2025 BUN/Creatinine Ratio 26 ratio Normal 7-27 [facility] Comment on above: Performed By: #### M RSAPCR #### [place] [address] #### CVFLURV #### [address] [address] Calcium [Mass/Vol] 8.7 mg/dL Normal 8.4-10.2 [facility] Comment on above: Performed By: #### M RSAPCR #### [place] [address] #### CVFLURV #### [place] [address] Chloride [Moles/Vol] 106 mmol/L Normal 98-107 [facility] Comment on above: Performed By: #### M RSAPCR #### [place] [address] #### CVFLURV #### [address] [address] CO2 [Moles/Vol] 33 mmol/L High 23-31 [facility] Comment on above: Performed By: #### M RSAPCR #### [place] [address] #### CVFLURV #### [address] [address] Creatinine [Mass/Vol] 0.70 mg/dL Normal 0.51-0.95 [facility] Comment on above: Performed By: #### M RSAPCR #### [place] [address] #### CVFLURV #### [address] [address] Electrolyte Balance 1.0 mEq/L Low 4.0-15.0 [facility] Comment on above: Performed By: #### M RSAPCR #### [place] [address] #### CVFLURV #### [address] [address] Glucose [Mass/Vol] 118 mg/dL High 83-110 [facility] Comment on above: Performed By: #### M RSAPCR #### [place] [address] #### CVFLURV #### [address] [address] Potassium [Moles/Vol] 3.8 mmol/L Normal 3.5-5.1 [facility] Comment on above: Performed By: #### M RSAPCR #### [place] [address] #### CVFLURV #### [address] [address] Sodium [Moles/Vol] 140 mmol/L Normal 136-145 [facility] Comment on above: Performed By: #### M RSAPCR #### [place] [address] #### CVFLURV #### [address] [address] Urea nitrogen [Mass/Vol] 18 mg/dL Normal 7-18 [facility] Comment on above: Performed By: #### M RSAPCR #### [place] [address] #### CVFLURV #### [address] [address] CBCon 07-09-2025 Erythrocyte distribution width (RBC) [Ratio] 17.8 % High 11.5-15.5 [facility] Comment on above: Performed By: #### M RSAPCR #### [place] [address] #### CVFLURV #### [address] [address] Hematocrit (Bld) [Volume fraction] 36.6 % Normal 34.0-46.0 [facility] Comment on above: Performed By: #### M RSAPCR #### [place] [address] #### CVFLURV #### [address] [address] Hgb 11.9 G/dL Low 12.0-16.0 [facility] Comment on above: Performed By: #### M RSAPCR #### [place] [address] #### CVFLURV #### [address] [address] MCH (RBC) [Entitic mass] 29.5 pg Normal 27.0-33.0 [facility] Comment on above: Performed By: #### M RSAPCR #### [place] [address] #### CVFLURV #### [place] [address] MCHC 32.6 G/dL Normal 32.0-36.0 [facility] Comment on above: Performed By: #### M RSAPCR #### [place] [address] #### CVFLURV #### [address] [address] MCV (RBC) [Entitic vol] 90.5 fL Normal 80.0-99.0 [facility] Comment on above: Performed By: #### M RSAPCR #### [place] [address] #### CVFLURV #### [address] [address] Platelet 406 10 3/mcL Normal 150-450 [facility] Comment on above: Performed By: #### M RSAPCR #### [place] [address] #### CVFLURV #### [place] [address] Platelet mean volume (Bld) [Entitic vol] 7.7 fL Normal 6.6-10.5 [facility] Comment on above: Performed By: #### M RSAPCR #### [place] [address] #### CVFLURV #### [place] [address] RBC 4.04 10 6/mcL Low 4.10-5.30 [facility] Comment on above: Performed By: #### M RSAPCR #### [place] [address] #### CVFLURV #### [place] [address] WBC 9.9 10 3/mcL Normal 4.5-10.8 [facility] Comment on above: Performed By: #### M RSAPCR #### [place] [address] #### CVFLURV #### [place] [address] CVFLURVon 07-09-2025 FLU A PCR Negative Normal Negative [facility] Comment on above: Performed By: #### C VFLURV #### [place] [address] FLU B PCR Negative Normal Negative [facility] Comment on above: Performed By: #### C VFLURV #### [place] [address] RSV PCR Negative Normal Negative [facility] Comment on above: Performed By: #### C VFLURV #### [place] [address] SARS-CoV-2 (COVID-19) RNA IVANA+probe Ql (Unsp spec) Negative Normal Negative [facility] Comment on above: Result Comment: [...] Performed By: #### C VFLURV #### [place] [address] LABORATORYOrdered By: SYSTEM SYSTEM on 07-09-2025 Basophils [...] ng/L Male: 0-76 ng/L Testing performed on [employer] using a homogeneous sandwich chemiluminescent immunoassay based on [employer] technology. Urea nitrogen [Mass/Vol] 18 mg/dL Normal [...] Sensitivity Troponin I 18 ng/L Normal 0-51 [facility] Comment on above: Result Comment: High Sensitive Troponin I Reference Ranges: Female: 0-51 ng/L Male: 0-76 ng/L Testing performed on [employer] using a homogeneous sandwich chemiluminescent immunoassay based on [employer] technology. Performed By: #### M RSAPCR #### [address] [address] #### CVFLURV #### [facility] [address] [place], [place] [address] XR KNEE THREE VIEWS RIGHTon 07-09-2025 XR [...] 6:11:06 AM Ordering Provider: BRIAN TRINIDAD Normal [facility] .Auto Diffon 06-15-2025 Basophil, Absolute 0.1 10 3/mcL Normal 0.0-0.3 [facility] Comment on above: Performed By: #### M G, CBC, GFR, ADIFF, BMP, ANEU #### [address] [address] Basophils/100 WBC (Bld) 1.4 % Normal 0.0-2.5 [facility] Comment on above: Performed By: #### M G, CBC, GFR, ADIFF, BMP, ANEU #### [address] [address] Eosinophil, Absolute 0.2 10 3/mcL Normal 0.0-0.7 [facility] Comment on above: Performed By: #### M G, CBC, GFR, ADIFF, BMP, ANEU #### [address] [address] Eosinophils/100 WBC (Bld) 3.8 % Normal 0.0-6.0 [facility] Comment on above: Performed By: #### M G, CBC, GFR, ADIFF, BMP, ANEU #### [address] [address] Lymphocyte, Absolute 2.2 10 3/mcL Normal 0.9-4.3 [facility] Comment on above: Performed By: #### M G, CBC, GFR, ADIFF, BMP, ANEU #### [address] [address] Lymphocytes/100 WBC (Bld) 39.1 % Normal 20.0-40.0 [facility] Comment on above: Performed By: #### M G, CBC, GFR, ADIFF, BMP, ANEU #### [address] [address] Monocyte, Absolute 0.8 10 3/mcL Normal 0.1-1.4 [facility] Comment on above: Performed By: #### M G, CBC, GFR, ADIFF, BMP, ANEU #### [address] [address] Monocytes/100 WBC (Bld) 14.1 % High 2.0-13.0 [facility] Comment on above: Performed By: #### M G, CBC, GFR, ADIFF, BMP, ANEU #### [address] [address] Neutrophils/100 WBC (Bld) 41.6 % Low 50.0-75.0 [facility] Comment on above: Performed By: #### M G, CBC, GFR, ADIFF, BMP, ANEU #### [address] [address] .GFRon 06-15-2025 Estimated Glomerular Filtration Rate 69 ml/min/1.73sqm Normal [facility] Comment on above: Result Comment: Stages [...] G, CBC, GFR, ADIFF, BMP, ANEU #### [place] [address] .NEUABSon 06-15-2025 Neutrophil, Absolute 2.3 10 3/mcL Normal 2.3-8.1 [facility] Comment on above: Performed By: #### M G, CBC, GFR, ADIFF, BMP, ANEU #### [place] [id number] BMPon 06-15-2025 BUN/Creatinine Ratio 27.8 ratio High 10.0-22.0 [facility] Comment on above: Performed By: #### M G, CBC, GFR, ADIFF, BMP, ANEU #### [place] [address] Calcium [Mass/Vol] 8.6 mg/dL Low 8.7-10.4 [facility] Comment on above: Performed By: #### M G, CBC, GFR, ADIFF, BMP, ANEU #### [place] [address] Chloride [Moles/Vol] 107 mmol/L Normal 98-110 [facility] Comment on above: Performed By: #### M G, CBC, GFR, ADIFF, BMP, ANEU #### [address] [address] CO2 [Moles/Vol] 34 mmol/L High 22-32 [facility] Comment on above: Performed By: #### M G, CBC, GFR, ADIFF, BMP, ANEU #### [address] [address] Creatinine [Mass/Vol] 0.90 mg/dL Normal 0.50-1.20 [facility] Comment on above: Result Comment: Test ing performed on [employer] analyzer using enzymatic creatinine methodology. Performed By: #### M G, CBC, GFR, ADIFF, BMP, ANEU #### [address] [address] Electrolyte Balance 5.0 mEq/L Normal 4.0-15.0 [facility] Comment on above: Performed By: #### M G, CBC, GFR, ADIFF, BMP, ANEU #### [address] [address] Glucose [Mass/Vol] 126 mg/dL High 82-115 [facility] Comment on above: Performed By: #### M G, CBC, GFR, ADIFF, BMP, ANEU #### [address] [address] Potassium [Moles/Vol] 4.1 mmol/L Normal 3.5-5.0 [facility] Comment on above: Performed By: #### M G, CBC, GFR, ADIFF, BMP, ANEU #### [address] [address] Sodium [Moles/Vol] 146 mmol/L High 136-145 [facility] Comment on above: Performed By: #### M G, CBC, GFR, ADIFF, BMP, ANEU #### [address] [address] Urea nitrogen [Mass/Vol] 25.0 mg/dL High 8.0-22.0 [facility] Comment on above: Performed By: #### M G, CBC, GFR, ADIFF, BMP, ANEU #### [address] [address] CBCon 06-15-2025 Erythrocyte distribution width (RBC) [Ratio] 17.8 % High 11.5-15.5 [facility] Comment on above: Performed By: #### M G, CBC, GFR, ADIFF, BMP, ANEU #### [place] [address] Hematocrit (Bld) [Volume fraction] 34.8 % Normal 34.0-46.0 [facility] Comment on above: Performed By: #### M G, CBC, GFR, ADIFF, BMP, ANEU #### [place] [address] Hgb 11.4 G/dL Low 12.0-16.0 [facility] Comment on above: Performed By: #### M G, CBC, GFR, ADIFF, BMP, ANEU #### [place] [address] MCH (RBC) [Entitic mass] 30.1 pg Normal 27.0-33.0 [facility] Comment on above: Performed By: #### M G, CBC, GFR, ADIFF, BMP, ANEU #### [place] [address] MCHC 32.7 G/dL Normal 32.0-36.0 [facility] Comment on above: Performed By: #### M G, CBC, GFR, ADIFF, BMP, ANEU #### [place] [address] MCV (RBC) [Entitic vol] 91.8 fL Normal 80.0-99.0 [facility] Comment on above: Performed By: #### M G, CBC, GFR, ADIFF, BMP, ANEU #### [place] [address] Platelet 346 10 3/mcL Normal 150-450 [facility] Comment on above: Performed By: #### M G, CBC, GFR, ADIFF, BMP, ANEU #### [place] [address] Platelet mean volume (Bld) [Entitic vol] 8.7 fL Normal 6.6-10.5 [facility] Comment on above: Performed By: #### M G, CBC, GFR, ADIFF, BMP, ANEU #### [place] [id number] [place] [address] RBC 3.79 10 6/mcL Low 4.10-5.30 [facility] Comment on above: Performed By: #### M G, CBC, GFR, ADIFF, BMP, ANEU #### [place] [id number] [place] [address] WBC 5.6 10 3/mcL Normal 4.5-10.8 [facility] Comment on above: Performed By: #### M G, CBC, GFR, ADIFF, BMP, ANEU #### [address] [address] LABORATORYOrdered By: SYSTEM SYSTEM on 06-15-2025 Basophils [...] above: Interpretive Data: T esting performed on [employer] analyzer using enzymatic creatinine methodology. Electrolyte Balance [...] 06-15-2025 Magnesium [Mass/Vol] 1.8 mg/dL Normal 1.6-2.4 [facility] Comment on above: Performed By: #### M G, CBC, GFR, ADIFF, BMP, ANEU #### [address] [address] .GFRon 06-14-2025 Estimated Glomerular Filtration Rate 62 ml/min/1.73sqm Normal [facility] Comment on above: Result Comment: Stages [...] Performed By: #### T ARIELLE #### [address] [address] BMPon 06-14-2025 BUN/Creatinine Ratio 26.5 ratio High 10.0-22.0 [facility] Comment on above: Performed By: #### T GOMEZ #### [address] [address] Calcium [Mass/Vol] 8.1 mg/dL Low 8.7-10.4 [facility] Comment on above: Performed By: #### T GOMEZ #### [address] [address] Chloride [Moles/Vol] 104 mmol/L Normal 98-110 [facility] Comment on above: Performed By: #### T GOMEZ #### [address] [address] CO2 [Moles/Vol] 33 mmol/L High 22-32 [facility] Comment on above: Performed By: #### T GOMEZ #### [place] [id number] Creatinine [Mass/Vol] 0.98 mg/dL Normal 0.50-1.20 [facility] Comment on above: Result Comment: Test ing performed on [employer] analyzer using enzymatic creatinine methodology. Performed By: #### T GOMEZ #### [address] [address] Electrolyte Balance 8.0 mEq/L Normal 4.0-15.0 [facility] Comment on above: Performed By: #### T GOMEZ #### [address] [address] Glucose [Mass/Vol] 118 mg/dL High 82-115 [facility] Comment on above: Performed By: #### T GOMEZ #### [place] [phone] Potassium [Moles/Vol] 4.2 mmol/L Normal 3.5-5.0 [facility] Comment on above: Result Comment: Spec imen slightly hemolyzed. Performed By: #### T GOMEZ #### [place] [id number] Sodium [Moles/Vol] 145 mmol/L Normal 136-145 [facility] Comment on above: Performed By: #### T GOMEZ #### [place] [id number] Urea nitrogen [Mass/Vol] 26.0 mg/dL High 8.0-22.0 [facility] Comment on above: Performed By: #### T [facility] #### [place] [address] LABORATORYOrdered By: SYSTEM SYSTEM on 06-14-2025 Calcium [...] above: Interpretive Data: T esting performed on [employer] analyzer using enzymatic creatinine methodology. Electrolyte Balance [...] 06-14-2025 Magnesium [Mass/Vol] 1.9 mg/dL Normal 1.6-2.4 [facility] Comment on above: Performed By: #### T GOMEZ #### [address] [address] XR CHEST 1 VIEWon 06-14-2025 XR CHEST [...] 06/14/2025 10:24:03 AM Ordering Provider: JOAN Rivero [facility] .Auto Diffon 06-13-2025 Basophil, Absolute 0.0 10 3/mcL Normal 0.0-0.3 [facility] Comment on above: Performed By: #### T GOMEZ #### [address] [address] Basophils/100 WBC (Bld) 0.4 % Normal 0.0-2.5 [facility] Comment on above: Performed By: #### T GOMEZ #### [address] [address] Eosinophil, Absolute 0.0 10 3/mcL Normal 0.0-0.7 [facility] Comment on above: Performed By: #### T GOMEZ #### [address] [address] Eosinophils/100 WBC (Bld) 0.0 % Normal 0.0-6.0 [facility] Comment on above: Performed By: #### T GOMEZ #### [facility] [address] [place] [address] Lymphocyte, Absolute 0.4 10 3/mcL Low 0.9-4.3 [facility] Comment on above: Performed By: #### T GOMEZ #### [address] [address] Lymphocytes/100 WBC (Bld) 12.3 % Low 20.0-40.0 [facility] Comment on above: Performed By: #### T GOMEZ #### [address] [address] Monocyte, Absolute 0.2 10 3/mcL Normal 0.1-1.4 [facility] Comment on above: Performed By: #### T GOMEZ #### [address] [address] Monocytes/100 WBC (Bld) 6.6 % Normal 2.0-13.0 [facility] Comment on above: Performed By: #### T GOMEZ #### [address] [address] Neutrophils/100 WBC (Bld) 80.7 % High 50.0-75.0 [facility] Comment on above: Performed By: #### T GOMEZ #### [address] [address] .GFRon 06-13-2025 Estimated Glomerular Filtration Rate 68 ml/min/1.73sqm Normal [facility] Comment on above: Result Comment: Stages [...] Performed By: #### T GOMEZ #### [address] [address] .NEUABSon 06-13-2025 Neutrophil, Absolute 2.6 10 3/mcL Normal 2.3-8.1 [facility] Comment on above: Performed By: #### T GOMEZ #### [address] [address] BMPon 06-13-2025 BUN/Creatinine Ratio 18.7 ratio Normal 10.0-22.0 [facility] Comment on above: Performed By: #### T GOMEZ #### [address] [address] Calcium [Mass/Vol] 8.3 mg/dL Low 8.7-10.4 [facility] Comment on above: Performed By: #### T GOMEZ #### [address] [address] Chloride [Moles/Vol] 101 mmol/L Normal 98-110 [facility] Comment on above: Performed By: #### T GOMEZ #### [address] [address] CO2 [Moles/Vol] 34 mmol/L High 22-32 [facility] Comment on above: Performed By: #### T GOMEZ #### [address] [address] Creatinine [Mass/Vol] 0.91 mg/dL Normal 0.50-1.20 [facility] Comment on above: Result Comment: Test ing performed on [employer] analyzer using enzymatic creatinine methodology. Performed By: #### T GOMEZ #### [address] [address] Electrolyte Balance 9.0 mEq/L Normal 4.0-15.0 [facility] Comment on above: Performed By: #### T GOMEZ #### [place] [id number] Glucose [Mass/Vol] 125 mg/dL High 82-115 [facility] Comment on above: Performed By: #### T GOMEZ #### [place] [id number] Potassium [Moles/Vol] 3.6 mmol/L Normal 3.5-5.0 [facility] Comment on above: Performed By: #### T GOMEZ #### [place] [id number] Sodium [Moles/Vol] 144 mmol/L Normal 136-145 [facility] Comment on above: Performed By: #### T GOMEZ #### [place] [id number] Urea nitrogen [Mass/Vol] 17.0 mg/dL Normal 8.0-22.0 [facility] Comment on above: Performed By: #### T GOMEZ #### [place] [address] CBCon 06-13-2025 Erythrocyte distribution width (RBC) [Ratio] 17.4 % High 11.5-15.5 [facility] Comment on above: Performed By: #### T GOMEZ #### [place] [id number] Hematocrit (Bld) [Volume fraction] 37.9 % Normal 34.0-46.0 [facility] Comment on above: Performed By: #### T GOMEZ #### [place] [address] Hgb 12.3 G/dL Normal 12.0-16.0 [facility] Comment on above: Performed By: #### T GOMEZ #### [place] [id number] MCH (RBC) [Entitic mass] 29.3 pg Normal 27.0-33.0 [facility] Comment on above: Performed By: #### T GOMEZ #### [place] [id number] MCHC 32.5 G/dL Normal 32.0-36.0 [facility] Comment on above: Performed By: #### T GOMEZ #### [address] [address] MCV (RBC) [Entitic vol] 90.3 fL Normal 80.0-99.0 [facility] Comment on above: Performed By: #### T GOMEZ #### [place] [id number] Platelet 452 10 3/mcL High 150-450 [facility] Comment on above: Performed By: #### T GOMEZ #### [place] [address] Platelet mean volume (Bld) [Entitic vol] 8.7 fL Normal 6.6-10.5 [facility] Comment on above: Performed By: #### T GOMEZ #### [place] [address] RBC 4.20 10 6/mcL Normal 4.10-5.30 [facility] Comment on above: Performed By: #### T GOMEZ #### [place] [address] WBC 3.2 10 3/mcL Low 4.5-10.8 [facility] Comment on above: Performed By: #### T GOMEZ #### [place] [address] LABORATORYOrdered By: SYSTEM SYSTEM on 06-13-2025 Troponin I.cardiac DL <= 0.01 ng/mL [Mass/Vol] 17 ng/L Normal 0 - 34 ng/L ADM SS Comment on above: Interpretive Data: High Sensitive Troponin I Reference Ranges: Female: 0-34 ng/L Male: 0-54 ng/L Testing performed on NXT-ID analyzer using direct chemiluminescent technology. Basophils (Bld) [...] above: Interpretive Data: T esting performed on [employer] analyzer using enzymatic creatinine methodology. Electrolyte Balance [...] 06-13-2025 Magnesium [Mass/Vol] 1.8 mg/dL Normal 1.6-2.4 [facility] Comment on above: Performed By: #### T [facility] #### [address] 06-13-2025 High Sensitivity Troponin I 17 ng/L Normal 0-34 [facility] Comment on above: Result Comment: High Sensitive Troponin I Reference Ranges: Female: 0-34 ng/L Male: 0-54 ng/L Testing performed on [employer] IM analyzer using direct chemiluminescent technology. Performed By: #### T [facility] #### [address] [address] .Auto Diffon 06-12-2025 Basophil, Absolute 0.1 10 3/mcL Normal 0.0-0.3 [facility] Comment on above: Performed By: #### A DIFF, PBNP, TROPHS, CBC, GFR, MDW, ANEU, BMP #### [address] [address] Basophils/100 WBC (Bld) 1.0 % Normal 0.0-2.5 [facility] Comment on above: Performed By: #### A DIFF, PBNP, TROPHS, CBC, GFR, MDW, ANEU, BMP #### [address] [address] Eosinophil, Absolute 0.1 10 3/mcL Normal 0.0-0.7 [facility] Comment on above: Performed By: #### A DIFF, PBNP, TROPHS, CBC, GFR, MDW, ANEU, BMP #### [address] [address] Eosinophils/100 WBC (Bld) 1.3 % Normal 0.0-6.0 [facility] Comment on above: Performed By: #### A DIFF, PBNP, TROPHS, CBC, GFR, MDW, ANEU, BMP #### [address] [address] Lymphocyte, Absolute 2.0 10 3/mcL Normal 0.9-4.3 [facility] Comment on above: Performed By: #### A DIFF, PBNP, TROPHS, CBC, GFR, MDW, ANEU, BMP #### [address] [address] Lymphocytes/100 WBC (Bld) 25.0 % Normal 20.0-40.0 [facility] Comment on above: Performed By: #### A DIFF, PBNP, TROPHS, CBC, GFR, MDW, ANEU, BMP #### [address] [place], [place] [address] Monocyte, Absolute 0.9 10 3/mcL Normal 0.1-1.4 [facility] Comment on above: Performed By: #### A DIFF, PBNP, TROPHS, CBC, GFR, MDW, ANEU, BMP #### [address] [address] Monocytes/100 WBC (Bld) 11.3 % Normal 2.0-13.0 [facility] Comment on above: Performed By: #### A DIFF, PBNP, TROPHS, CBC, GFR, MDW, ANEU, BMP #### [address] [address] Neutrophils/100 WBC (Bld) 61.4 % Normal 50.0-75.0 [facility] Comment on above: Performed By: #### A DIFF, PBNP, TROPHS, CBC, GFR, MDW, ANEU, BMP #### [address] [address] .GFRon 06-12-2025 Estimated Glomerular Filtration Rate 87 ml/min/1.73sqm [facility] Comment on above: Result Comment: Stages of [...] the eGFR results. Performed By: #### T [facility] #### [facility] [address] [place] [address] Estimated Glomerular Filtration Rate 79 ml/min/1.73sqm Normal [facility] Comment on above: Result Comment: [...] TROPHS, CBC, GFR, MDW, ANEU, BMP #### [address] [address] .MDWon 06-12-2025 Monocyte Distribution Width 17.54 Normal 0.00-20.00 [facility] Comment on above: Result Comment: For ED adult patients suspected of sepsis, MDW<=20.0 does not rule out sepsis or risk of sepsis Performed By: #### A DIFF, PBNP, TROPHS, CBC, GFR, MDW, ANEU, BMP #### [address] [address] .NEUABSon 06-12-2025 Neutrophil, Absolute 5.0 10 3/mcL Normal 2.3-8.1 [facility] Comment on above: Performed By: #### A DIFF, PBNP, TROPHS, CBC, GFR, MDW, ANEU, BMP #### [address] [address] BMPon 06-12-2025 BUN/Creatinine Ratio 16.2 ratio Normal 10.0-22.0 [facility] Comment on above: Performed By: #### T ARIELLE #### [address] [address] Calcium [Mass/Vol] 8.6 mg/dL Low 8.7-10.4 [facility] Comment on above: Performed By: #### T ARIELLE #### [address] [address] Chloride [Moles/Vol] 103 mmol/L Normal 98-110 [facility] Comment on above: Performed By: #### T GOMEZ #### [address] [address] CO2 [Moles/Vol] 30 mmol/L Normal 22-32 [facility] Comment on above: Performed By: #### T GOMEZ #### [address] [address] Creatinine [Mass/Vol] 0.74 mg/dL Normal 0.50-1.20 [facility] Comment on above: Result Comment: Test ing performed on [employer] analyzer using enzymatic creatinine methodology. Performed By: #### T GOMEZ #### [place] [id number] Electrolyte Balance 10.0 mEq/L Normal 4.0-15.0 [facility] Comment on above: Performed By: #### T GOMEZ #### [place] [id number] Glucose [Mass/Vol] 124 mg/dL High 82-115 [facility] Comment on above: Performed By: #### T GOMEZ #### [place] [id number] Potassium [Moles/Vol] 3.8 mmol/L Normal 3.5-5.0 [facility] Comment on above: Performed By: #### T GOMEZ #### [place] [id number] Sodium [Moles/Vol] 143 mmol/L Normal 136-145 [facility] Comment on above: Performed By: #### T GOMEZ #### [place] [id number] Urea nitrogen [Mass/Vol] 12.0 mg/dL Normal 8.0-22.0 [facility] Comment on above: Performed By: #### T GOMEZ #### [address] [address] CBCon 06-12-2025 Erythrocyte distribution width (RBC) [Ratio] 18.1 % High 11.5-15.5 [facility] Comment on above: Performed By: #### A DIFF, PBNP, TROPHS, CBC, GFR, MDW, ANEU, BMP #### [address] [address] Hematocrit (Bld) [Volume fraction] 44.2 % Normal 34.0-46.0 [facility] Comment on above: Performed By: #### A DIFF, PBNP, TROPHS, CBC, GFR, MDW, ANEU, BMP #### [place] [address] [place], [place] [address] Hgb 13.8 G/dL Normal 12.0-16.0 [facility] Comment on above: Performed By: #### A DIFF, PBNP, TROPHS, CBC, GFR, MDW, ANEU, BMP #### [address] [address] MCH (RBC) [Entitic mass] 29.3 pg Normal 27.0-33.0 [facility] Comment on above: Performed By: #### A DIFF, PBNP, TROPHS, CBC, GFR, MDW, ANEU, BMP #### [address] [address] MCHC 31.2 G/dL Low 32.0-36.0 [facility] Comment on above: Performed By: #### A DIFF, PBNP, TROPHS, CBC, GFR, MDW, ANEU, BMP #### [address] [address] MCV (RBC) [Entitic vol] 93.7 fL Normal 80.0-99.0 [facility] Comment on above: Performed By: #### A DIFF, PBNP, TROPHS, CBC, GFR, MDW, ANEU, BMP #### [address] [address] Platelet 455 10 3/mcL High 150-450 [facility] Comment on above: Performed By: #### A DIFF, PBNP, TROPHS, CBC, GFR, MDW, ANEU, BMP #### [address] [address] Platelet mean volume (Bld) [Entitic vol] 8.3 fL Normal 6.6-10.5 [facility] Comment on above: Performed By: #### A DIFF, PBNP, TROPHS, CBC, GFR, MDW, ANEU, BMP #### [address] [address] RBC 4.71 10 6/mcL Normal 4.10-5.30 [facility] Comment on above: Performed By: #### A DIFF, PBNP, TROPHS, CBC, GFR, MDW, ANEU, BMP #### [address] [address] WBC 8.2 10 3/mcL Normal 4.5-10.8 [facility] Comment on above: Performed By: #### A DIFF, PBNP, TROPHS, CBC, GFR, MDW, ANEU, BMP #### [address] [address] CMPon 06-12-2025 Albumin Level 3.1 G/dL Low 3.4-4.8 [facility] Comment on above: Performed By: #### A DIFF, PBNP, TROPHS, CBC, GFR, MDW, ANEU, BMP #### [address] [address] Albumin/Globulin [Mass ratio] 0.8 {ratio} Low 1.1-2.5 [facility] Comment on above: Performed By: #### A DIFF, PBNP, TROPHS, CBC, GFR, MDW, ANEU, BMP #### [address] [address] ALP [Catalytic activity/Vol] 108 U/L Normal 40-135 [facility] Comment on above: Performed By: #### A DIFF, PBNP, TROPHS, CBC, GFR, MDW, ANEU, BMP #### [address] [address] ALT [Catalytic activity/Vol] 21 U/L Normal 14-59 [facility] Comment on above: Performed By: #### A DIFF, PBNP, TROPHS, CBC, GFR, MDW, ANEU, BMP #### [address] [address] AST [Catalytic activity/Vol] 32 U/L Normal 10-40 [facility] Comment on above: Performed By: #### A DIFF, PBNP, TROPHS, CBC, GFR, MDW, ANEU, BMP #### [address] [address] Bili Total 0.4 mg/dL Normal 0.2-1.0 [facility] Comment on above: Result Comment: Use of this assay is not recommended for patients undergoing treatment with eltrombopag due to the potential for falsely elevated results. Performed By: #### A DIFF, PBNP, TROPHS, CBC, GFR, MDW, ANEU, BMP #### [place] [address] BUN/Creatinine Ratio 16 ratio Normal 7-27 [facility] Comment on above: Performed By: #### A DIFF, PBNP, TROPHS, CBC, GFR, MDW, ANEU, BMP #### [address] [address] Calcium [Mass/Vol] 8.9 mg/dL Normal 8.4-10.2 [facility] Comment on above: Performed By: #### A DIFF, PBNP, TROPHS, CBC, GFR, MDW, ANEU, BMP #### [address] [address] Chloride [Moles/Vol] 106 mmol/L Normal 98-107 [facility] Comment on above: Performed By: #### A DIFF, PBNP, TROPHS, CBC, GFR, MDW, ANEU, BMP #### [address] [address] CO2 [Moles/Vol] 28 mmol/L Normal 23-31 [facility] Comment on above: Performed By: #### A DIFF, PBNP, TROPHS, CBC, GFR, MDW, ANEU, BMP #### [address] [address] Creatinine [Mass/Vol] 0.80 mg/dL Normal 0.51-0.95 [facility] Comment on above: Performed By: #### A DIFF, PBNP, TROPHS, CBC, GFR, MDW, ANEU, BMP #### [address] [address] Electrolyte Balance 7.0 mEq/L Normal 4.0-15.0 [facility] Comment on above: Performed By: #### A DIFF, PBNP, TROPHS, CBC, GFR, MDW, ANEU, BMP #### [address] [address] Globulin 4.1 G/dL Normal 2.7-4.4 [facility] Comment on above: Performed By: #### A DIFF, PBNP, TROPHS, CBC, GFR, MDW, ANEU, BMP #### [address] [address] Glucose [Mass/Vol] 183 mg/dL High 83-110 [facility] Comment on above: Performed By: #### A DIFF, PBNP, TROPHS, CBC, GFR, MDW, ANEU, BMP #### [address] [address] Potassium [Moles/Vol] 5.1 mmol/L Normal 3.5-5.1 [facility] Comment on above: Performed By: #### A DIFF, PBNP, TROPHS, CBC, GFR, MDW, ANEU, BMP #### [address] [address] Sodium [Moles/Vol] 141 mmol/L Normal 136-145 [facility] Comment on above: Performed By: #### A DIFF, PBNP, TROPHS, CBC, GFR, MDW, ANEU, BMP #### [address] [address] Total Protein 7.2 G/dL Normal 6.4-8.2 [facility] Comment on above: Performed By: #### A DIFF, PBNP, TROPHS, CBC, GFR, MDW, ANEU, BMP #### [address] [address] Urea nitrogen [Mass/Vol] 13 mg/dL Normal 7-18 [facility] Comment on above: Performed By: #### A DIFF, PBNP, TROPHS, CBC, GFR, MDW, ANEU, BMP #### [address] [address] CVFLURVon 06-12-2025 FLU A PCR Negative Normal Negative [facility] Comment on above: Performed By: #### A DIFF, PBNP, TROPHS, CBC, GFR, MDW, ANEU, BMP #### [address] [address] FLU B PCR Negative Normal Negative [facility] Comment on above: Performed By: #### A DIFF, PBNP, TROPHS, CBC, GFR, MDW, ANEU, BMP #### [address] [address] RSV PCR Negative Normal Negative [facility] Comment on above: Performed By: #### A DIFF, PBNP, TROPHS, CBC, GFR, MDW, ANEU, BMP #### [address] [address] SARS-CoV-2 (COVID-19) RNA IVANA+probe Ql (Unsp spec) Negative Normal Negative [facility] Comment on above: Result Comment: [...] TROPHS, CBC, GFR, MDW, ANEU, BMP #### [place] [address] [place], [place] [address] LABORATORYOrdered By: SYSTEM SYSTEM on 06-12-2025 Troponin I.cardiac DL <= 0.01 ng/mL [Mass/Vol] 20 ng/L Normal 0 - 34 ng/L AH ADM SS Comment on above: Interpretive Data: High Sensitive Troponin I Reference Ranges: Female: 0-34 ng/L Male: 0-54 ng/L Testing performed on [employer] IM analyzer using direct chemiluminescent technology. Natriuretic peptide.B prohormone N-Terminal IA [Mass/Vol] 8817 pg/mL High 0 - 900 pg/mL ADM SS Troponin I.cardiac DL <= 0.01 ng/mL [Mass/Vol] 22 ng/L Normal 0 - 34 ng/L AH ADM SS Comment on above: Interpretive Data: High Sensitive Troponin I Reference Ranges: Female: 0-34 ng/L Male: 0-54 ng/L Testing performed on [employer] IM analyzer using direct chemiluminescent technology. Troponin I.cardiac DL <= 0.01 ng/mL [Mass/Vol] 35 ng/L Normal 0 - 51 ng/L AO ADM SS Comment on above: Interpretive Data: H igh Sensitive Troponin I Reference Ranges: Female: 0-51 ng/L Male: 0-76 ng/L Testing performed on [employer] using a homogeneous sandwich chemiluminescent immunoassay based on [employer] technology. Albumin BCP dye [Mass/Vol] 3.1 G/dL [...] ng/L Male: 0-76 ng/L Testing performed on [employer] using a homogeneous sandwich chemiluminescent immunoassay based on [employer] technology. Urea nitrogen [Mass/Vol] 13 mg/dL Normal [...] 06-12-2025 Magnesium [Mass/Vol] 1.5 mg/dL Low 1.6-2.4 [facility] Comment on above: Performed By: #### T GOMEZ #### [facility] [address] [place] [address] PBNPon 06-12-2025 Natriuretic peptide B (Bld) [Mass/Vol] 8817 pg/mL High 0-900 [facility] Comment on above: Performed By: #### T GOMEZ #### [facility] [address] [place] [address] Natriuretic peptide B (Bld) [Mass/Vol] 9545 pg/mL High 0-125 [facility] Comment on above: Result Comment: NT-p roBNP results of less than 300 pg/mL effectively rules out acute congestive heart failure with 99% negative predictive value. Performed By: #### A DIFF, PBNP, TROPHS, CBC, GFR, MDW, ANEU, BMP #### [address] [address] [facility] High Sensitivity Troponin I 20 ng/L Normal 0-34 [facility] Comment on above: Result Comment: High Sensitive Troponin I Reference Ranges: Female: 0-34 ng/L Male: 0-54 ng/L Testing performed on [employer] IM analyzer using direct chemiluminescent technology. Performed By: #### T GOMEZ #### [place] [address] High Sensitivity Troponin I 22 ng/L Normal 0-34 [facility] Comment on above: Result Comment: High Sensitive Troponin I Reference Ranges: Female: 0-34 ng/L Male: 0-54 ng/L Testing performed on [employer] IM analyzer using direct chemiluminescent technology. Performed By: #### T GOMEZ #### [place] [address] High Sensitivity Troponin I 35 ng/L Normal 0-51 [facility] Comment on above: Result Comment: High Sensitive Troponin I Reference Ranges: Female: 0-51 ng/L Male: 0-76 ng/L Testing performed on [employer] using a homogeneous sandwich chemiluminescent immunoassay based on [employer] technology. Performed By: #### A DIFF, PBNP, TROPHS, CBC, GFR, MDW, ANEU, BMP #### [address] [address] High Sensitivity Troponin I 36 ng/L Normal 0-51 [facility] Comment on above: Result Comment: High Sensitive Troponin I Reference Ranges: Female: 0-51 ng/L Male: 0-76 ng/L Testing performed on [employer] EX[employer] using a homogeneous sandwich chemiluminescent immunoassay based on [employer] technology. Performed By: #### A DIFF, PBNP, TROPHS, CBC, GFR, MDW, ANEU, BMP #### [address] [address] UAon 06-12-2025 Color (U) Yellow Normal [facility] Comment on above: Performed By: #### T GOMEZ #### [place] [address] Glucose (U) [Mass/Vol] Negative Normal Negative [facility] Comment on above: Performed By: #### T GOMEZ #### [place] [id number] Ketones Ql (U) Negative Normal Neg-Trace [facility] Comment on above: Performed By: #### T GOMEZ #### [place] [address] UA Appear Clear Normal Clear [facility] Comment on above: Performed By: #### T GOMEZ #### [place] [address] UA Blood Negative Normal Neg-Trace [facility] Comment on above: Performed By: #### T GOMEZ #### [place] [address] UA Leuk Est Negative Normal Negative [facility] Comment on above: Performed By: #### T GOMEZ #### [place] [address] UA Nitrite Negative Normal Negative [facility] Comment on above: Performed By: #### T GOMEZ #### [place] [address] UA pH 5.0 Normal 5.0 - 8.0 [facility] Comment on above: Performed By: #### T GOMEZ #### [place] [address] UA Protein Negative Normal Negative [facility] Comment on above: Performed By: #### T GOMEZ #### [place] [address] UA Spec Grav <=1.005 Abnormal 1.006-1.029 [facility] Comment on above: Performed By: #### T GOMEZ #### [place] [address] UA Specimen Type Clean Catch Normal [facility] Comment on above: Performed By: #### T GOMEZ #### [place] [address] UA Urobilinogen 0.2 E.U./dL Normal 0.2-1.0 [facility] Comment on above: Performed By: #### T GOMEZ #### [facility] [address] [place] [address] Urobilinogen (U) [Mass/Vol] Negative Normal Neg-Trace [facility] Comment on above: Performed By: #### T GOMEZ #### [facility] [address] [place] [address] XR CHEST 1 VIEWon 06-12-2025 XR CHEST [...] PM Ordering Provider: KRYS PICKETT [facility] .GFRon 05-21-2025 Estimated Glomerular Filtration Rate 79 ml/min/1.73sqm Normal [facility] Comment on above: Result Comment: [...] TROPHS, CBC, GFR, MDW, ANEU, BMP #### [address] [address] BMPon 05-21-2025 BUN/Creatinine Ratio 32 ratio High 7-27 [facility] Comment on above: Performed By: #### A DIFF, PBNP, TROPHS, CBC, GFR, MDW, ANEU, BMP #### [address] [address] Calcium [Mass/Vol] 7.9 mg/dL Low 8.4-10.2 [facility] Comment on above: Performed By: #### A DIFF, PBNP, TROPHS, CBC, GFR, MDW, ANEU, BMP #### [address] [address] Chloride [Moles/Vol] 108 mmol/L High 98-107 [facility] Comment on above: Performed By: #### A DIFF, PBNP, TROPHS, CBC, GFR, MDW, ANEU, BMP #### [address] [address] CO2 [Moles/Vol] 35 mmol/L High 23-31 [facility] Comment on above: Performed By: #### A DIFF, PBNP, TROPHS, CBC, GFR, MDW, ANEU, BMP #### [address] [address] Creatinine [Mass/Vol] 0.80 mg/dL Normal 0.51-0.95 [facility] Comment on above: Performed By: #### A DIFF, PBNP, TROPHS, CBC, GFR, MDW, ANEU, BMP #### [address] [address] Electrolyte Balance 4.0 mEq/L Normal 4.0-15.0 [facility] Comment on above: Performed By: #### A DIFF, PBNP, TROPHS, CBC, GFR, MDW, ANEU, BMP #### [address] [address] Glucose [Mass/Vol] 124 mg/dL High 83-110 [facility] Comment on above: Performed By: #### A DIFF, PBNP, TROPHS, CBC, GFR, MDW, ANEU, BMP #### [address] [address] Potassium [Moles/Vol] 3.6 mmol/L Normal 3.5-5.1 [facility] Comment on above: Performed By: #### A DIFF, PBNP, TROPHS, CBC, GFR, MDW, ANEU, BMP #### [address] [address] Sodium [Moles/Vol] 147 mmol/L High 136-145 [facility] Comment on above: Performed By: #### A DIFF, PBNP, TROPHS, CBC, GFR, MDW, ANEU, BMP #### [address] [address] Urea nitrogen [Mass/Vol] 26 mg/dL High 7-18 [facility] Comment on above: Performed By: #### A DIFF, PBNP, TROPHS, CBC, GFR, MDW, ANEU, BMP #### [address] [address] LABORATORYOrdered By: SYSTEM SYSTEM on 05-21-2025 Calcium [...] 05-21-2025 Magnesium [Mass/Vol] 2.0 mg/dL Normal 1.8-2.4 [facility] Comment on above: Performed By: #### A DIFF, PBNP, TROPHS, CBC, GFR, MDW, ANEU, BMP #### [address] [address] .Auto Diffon 05-20-2025 Basophil, Absolute 0.0 10 3/mcL Normal 0.0-0.3 [facility] Comment on above: Performed By: #### M RSAPCR #### [facility] [address] [place] [address] #### CVFLURV #### [place] [address] [place], [place] [address] Basophils/100 WBC (Bld) 0.1 % Normal 0.0-2.5 [facility] Comment on above: Performed By: #### M RSAPCR #### [place] [address] #### CVFLURV #### [address] [address] Eosinophil, Absolute 0.0 10 3/mcL Normal 0.0-0.7 [facility] Comment on above: Performed By: #### M RSAPCR #### [place] [address] #### CVFLURV #### [address] [address] Eosinophils/100 WBC (Bld) 0.2 % Normal 0.0-6.0 [facility] Comment on above: Performed By: #### M RSAPCR #### [place] [address] #### CVFLURV #### [address] [address] Lymphocyte, Absolute 2.0 10 3/mcL Normal 0.9-4.3 [facility] Comment on above: Performed By: #### M RSAPCR #### [place] [address] #### CVFLURV #### [address] [address] Lymphocytes/100 WBC (Bld) 25.3 % Normal 20.0-40.0 [facility] Comment on above: Performed By: #### M RSAPCR #### [place] [address] #### CVFLURV #### [address] [address] Monocyte, Absolute 1.0 10 3/mcL Normal 0.1-1.4 [facility] Comment on above: Performed By: #### M RSAPCR #### [place] [address] #### CVFLURV #### [address] [address] Monocytes/100 WBC (Bld) 13.5 % High 2.0-13.0 [facility] Comment on above: Performed By: #### M RSAPCR #### [place] [address] #### CVFLURV #### [address] [address] Neutrophils/100 WBC (Bld) 60.9 % Normal 50.0-75.0 [facility] Comment on above: Performed By: #### M RSAPCR #### [place] [address] #### CVFLURV #### [address] [address] .GFRon 05-20-2025 Estimated Glomerular Filtration Rate 76 ml/min/1.73sqm Normal [facility] Comment on above: Result Comment: [...] results. Performed By: #### M RSAPCR #### [place] [id number] #### CVFLURV #### [address] [address] .NEUABSon 05-20-2025 Neutrophil, Absolute 4.7 10 3/mcL Normal 2.3-8.1 [facility] Comment on above: Performed By: #### M RSAPCR #### [place] [id number] #### CVFLURV #### [address] [address] BMPon 05-20-2025 BUN/Creatinine Ratio 33 ratio High 7-27 [facility] Comment on above: Performed By: #### M RSAPCR #### [place] [id number] #### CVFLURV #### [address] [address] Calcium [Mass/Vol] 8.0 mg/dL Low 8.4-10.2 [facility] Comment on above: Performed By: #### M RSAPCR #### [place] [id number] #### CVFLURV #### [address] [address] Chloride [Moles/Vol] 104 mmol/L Normal 98-107 [facility] Comment on above: Performed By: #### M RSAPCR #### [place] [address] #### CVFLURV #### [address] [address] CO2 [Moles/Vol] 38 mmol/L High 23-31 [facility] Comment on above: Performed By: #### M RSAPCR #### [place] [address] #### CVFLURV #### [address] [address] Creatinine [Mass/Vol] 0.83 mg/dL Normal 0.51-0.95 [facility] Comment on above: Performed By: #### M RSAPCR #### [place] [address] #### CVFLURV #### [address] [address] Electrolyte Balance 0.0 mEq/L Low 4.0-15.0 [facility] Comment on above: Performed By: #### M RSAPCR #### [place] [address] #### CVFLURV #### [address] [address] Glucose [Mass/Vol] 113 mg/dL High 83-110 [facility] Comment on above: Performed By: #### M RSAPCR #### [place] [address] #### CVFLURV #### [address] [address] Potassium [Moles/Vol] 4.3 mmol/L Normal 3.5-5.1 [facility] Comment on above: Performed By: #### M RSAPCR #### [place] [address] #### CVFLURV #### [address] [address] Sodium [Moles/Vol] 142 mmol/L Normal 136-145 [facility] Comment on above: Performed By: #### M RSAPCR #### [place] [address] #### CVFLURV #### [address] [address] Urea nitrogen [Mass/Vol] 27 mg/dL High 7-18 [facility] Comment on above: Performed By: #### M RSAPCR #### [place] [address] #### CVFLURV #### [address] [address] CBCon 05-20-2025 Erythrocyte distribution width (RBC) [Ratio] 17.4 % High 11.5-15.5 [facility] Comment on above: Performed By: #### M RSAPCR #### [place] [address] #### CVFLURV #### [address] [address] Hematocrit (Bld) [Volume fraction] 39.0 % Normal 34.0-46.0 [facility] Comment on above: Performed By: #### M RSAPCR #### [place] [address] #### CVFLURV #### [address] [address] Hgb 12.7 G/dL Normal 12.0-16.0 [facility] Comment on above: Performed By: #### M RSAPCR #### [place] [address] #### CVFLURV #### [address] [address] MCH (RBC) [Entitic mass] 29.8 pg Normal 27.0-33.0 [facility] Comment on above: Performed By: #### M RSAPCR #### [place] [address] #### CVFLURV #### [place] [address] MCHC 32.5 G/dL Normal 32.0-36.0 [facility] Comment on above: Performed By: #### M RSAPCR #### [place] [address] #### CVFLURV #### [place] [address] MCV (RBC) [Entitic vol] 91.8 fL Normal 80.0-99.0 [facility] Comment on above: Performed By: #### M RSAPCR #### [place] [address] #### CVFLURV #### [address] [address] Platelet 264 10 3/mcL Normal 150-450 [facility] Comment on above: Performed By: #### M RSAPCR #### [place] [address] #### CVFLURV #### [address] [address] Platelet mean volume (Bld) [Entitic vol] 9.1 fL Normal 6.6-10.5 [facility] Comment on above: Performed By: #### M RSAPCR #### [place] [address] #### CVFLURV #### [address] [place], [place] [address] RBC 4.25 10 6/mcL Normal 4.10-5.30 [facility] Comment on above: Performed By: #### M RSAPCR #### [address] [address] #### CVFLURV #### [address] [address] WBC 7.8 10 3/mcL Normal 4.5-10.8 [facility] Comment on above: Performed By: #### M RSAPCR #### [place] [address] #### CVFLURV #### [address] [address] LABORATORYOrdered By: SYSTEM SYSTEM on 05-20-2025 Basophils [...] 05-20-2025 Magnesium [Mass/Vol] 1.9 mg/dL Normal 1.8-2.4 [facility] Comment on above: Performed By: #### M RSAPCR #### [place] [address] #### CVFLURV #### [address] [address] MYCOon 05-20-2025 Mycoplasma IgG Positive Normal [facility] Comment on above: Result Comment: INTE RPRETATION OF MYCOPLASMA IgG BY EIA: Negative: No detectable M. pneumoniae IgG antibody. Positive: Mycoplasma pneumoniae IgG antibody Detected. Equivocal: Equivocal for IgG antibodies to Mycoplasma pneumoniae. Suggest repeat testing in 10-14 days. Performed By: #### M RSAPCR #### [place] [address] #### CVFLURV #### [address] [address] .Auto Diffon 05-19-2025 Basophil, Absolute 0.0 10 3/mcL Normal 0.0-0.3 [facility] Comment on above: Performed By: #### A DIFF, PBNP, TROPHS, CBC, GFR, MDW, ANEU, BMP #### [address] [address] Basophils/100 WBC (Bld) 0.3 % Normal 0.0-2.5 [facility] Comment on above: Performed By: #### A DIFF, PBNP, TROPHS, CBC, GFR, MDW, ANEU, BMP #### [address] [address] Eosinophil, Absolute 0.0 10 3/mcL Normal 0.0-0.7 [facility] Comment on above: Performed By: #### A DIFF, PBNP, TROPHS, CBC, GFR, MDW, ANEU, BMP #### [address] [address] Eosinophils/100 WBC (Bld) 0.2 % Normal 0.0-6.0 [facility] Comment on above: Performed By: #### A DIFF, PBNP, TROPHS, CBC, GFR, MDW, ANEU, BMP #### [address] [address] Lymphocyte, Absolute 1.8 10 3/mcL Normal 0.9-4.3 [facility] Comment on above: Performed By: #### A DIFF, PBNP, TROPHS, CBC, GFR, MDW, ANEU, BMP #### [address] [address] Lymphocytes/100 WBC (Bld) 24.9 % Normal 20.0-40.0 [facility] Comment on above: Performed By: #### A DIFF, PBNP, TROPHS, CBC, GFR, MDW, ANEU, BMP #### [address] [address] Monocyte, Absolute 1.0 10 3/mcL Normal 0.1-1.4 [facility] Comment on above: Performed By: #### A DIFF, PBNP, TROPHS, CBC, GFR, MDW, ANEU, BMP #### [address] [address] Monocytes/100 WBC (Bld) 13.5 % High 2.0-13.0 [facility] Comment on above: Performed By: #### A DIFF, PBNP, TROPHS, CBC, GFR, MDW, ANEU, BMP #### [address] [address] Neutrophils/100 WBC (Bld) 61.1 % Normal 50.0-75.0 [facility] Comment on above: Performed By: #### A DIFF, PBNP, TROPHS, CBC, GFR, MDW, ANEU, BMP #### [place] [address] [place], [place] [address] .GFRon 05-19-2025 Estimated Glomerular Filtration Rate 70 ml/min/1.73sqm Normal [facility] Comment on above: Result Comment: [...] GFR, MDW, ANEU, BMP #### [place] [address] [place], [place] [address] .NEUABSon 05-19-2025 Neutrophil, Absolute 4.3 10 3/mcL Normal 2.3-8.1 [facility] Comment on above: Performed By: #### A DIFF, PBNP, TROPHS, CBC, GFR, MDW, ANEU, BMP #### [place] [address] [place], [place] [address] BMPon 05-19-2025 BUN/Creatinine Ratio 31 ratio High 7-27 [facility] Comment on above: Performed By: #### A DIFF, PBNP, TROPHS, CBC, GFR, MDW, ANEU, BMP #### [place] [address] [place], [place] [address] Calcium [Mass/Vol] 8.3 mg/dL Low 8.4-10.2 [facility] Comment on above: Performed By: #### A DIFF, PBNP, TROPHS, CBC, GFR, MDW, ANEU, BMP #### [address] [address] Chloride [Moles/Vol] 106 mmol/L Normal 98-107 [facility] Comment on above: Performed By: #### A DIFF, PBNP, TROPHS, CBC, GFR, MDW, ANEU, BMP #### [address] [address] CO2 [Moles/Vol] 41 mmol/L Critically abnormal 23-31 [facility] Comment on above: Performed By: #### A DIFF, PBNP, TROPHS, CBC, GFR, MDW, ANEU, BMP #### [address] [address] Creatinine [Mass/Vol] 0.89 mg/dL Normal 0.51-0.95 [facility] Comment on above: Performed By: #### A DIFF, PBNP, TROPHS, CBC, GFR, MDW, ANEU, BMP #### [address] [address] Electrolyte Balance -1.0 mEq/L Low 4.0-15.0 [facility] Comment on above: Performed By: #### A DIFF, PBNP, TROPHS, CBC, GFR, MDW, ANEU, BMP #### [address] [address] Glucose [Mass/Vol] 108 mg/dL Normal 83-110 [facility] Comment on above: Performed By: #### A DIFF, PBNP, TROPHS, CBC, GFR, MDW, ANEU, BMP #### [address] [address] Potassium [Moles/Vol] 3.9 mmol/L Normal 3.5-5.1 [facility] Comment on above: Performed By: #### A DIFF, PBNP, TROPHS, CBC, GFR, MDW, ANEU, BMP #### [address] [address] Sodium [Moles/Vol] 146 mmol/L High 136-145 [facility] Comment on above: Performed By: #### A DIFF, PBNP, TROPHS, CBC, GFR, MDW, ANEU, BMP #### [place] [address] Urea nitrogen [Mass/Vol] 28 mg/dL High 7-18 [facility] Comment on above: Performed By: #### A DIFF, PBNP, TROPHS, CBC, GFR, MDW, ANEU, BMP #### [place] [address] CBCon 05-19-2025 Erythrocyte distribution width (RBC) [Ratio] 17.8 % High 11.5-15.5 [facility] Comment on above: Performed By: #### A DIFF, PBNP, TROPHS, CBC, GFR, MDW, ANEU, BMP #### [place] [address] Hematocrit (Bld) [Volume fraction] 39.7 % Normal 34.0-46.0 [facility] Comment on above: Performed By: #### A DIFF, PBNP, TROPHS, CBC, GFR, MDW, ANEU, BMP #### [place] [address] Hgb 12.7 G/dL Normal 12.0-16.0 [facility] Comment on above: Performed By: #### A DIFF, PBNP, TROPHS, CBC, GFR, MDW, ANEU, BMP #### [place] [address] MCH (RBC) [Entitic mass] 29.3 pg Normal 27.0-33.0 [facility] Comment on above: Performed By: #### A DIFF, PBNP, TROPHS, CBC, GFR, MDW, ANEU, BMP #### [place] [address] MCHC 32.1 G/dL Normal 32.0-36.0 [facility] Comment on above: Performed By: #### A DIFF, PBNP, TROPHS, CBC, GFR, MDW, ANEU, BMP #### [address] [address] MCV (RBC) [Entitic vol] 91.5 fL Normal 80.0-99.0 [facility] Comment on above: Performed By: #### A DIFF, PBNP, TROPHS, CBC, GFR, MDW, ANEU, BMP #### [address] [address] Platelet 261 10 3/mcL Normal 150-450 [facility] Comment on above: Performed By: #### A DIFF, PBNP, TROPHS, CBC, GFR, MDW, ANEU, BMP #### [place] [address] Platelet mean volume (Bld) [Entitic vol] 9.1 fL Normal 6.6-10.5 [facility] Comment on above: Performed By: #### A DIFF, PBNP, TROPHS, CBC, GFR, MDW, ANEU, BMP #### [place] [address] RBC 4.33 10 6/mcL Normal 4.10-5.30 [facility] Comment on above: Performed By: #### A DIFF, PBNP, TROPHS, CBC, GFR, MDW, ANEU, BMP #### [place] [address] WBC 7.0 10 3/mcL Normal 4.5-10.8 [facility] Comment on above: Performed By: #### A DIFF, PBNP, TROPHS, CBC, GFR, MDW, ANEU, BMP #### [address] [address] LABORATORYOrdered By: SYSTEM SYSTEM on 05-19-2025 Basophils [...] 05-19-2025 Magnesium [Mass/Vol] 1.9 mg/dL Normal 1.8-2.4 [facility] Comment on above: Performed By: #### A DIFF, PBNP, TROPHS, CBC, GFR, MDW, ANEU, BMP #### [address] [address] PBNPon 05-19-2025 Natriuretic peptide B (Bld) [Mass/Vol] 4502 pg/mL High 0-125 [facility] Comment on above: Result Comment: NT-p roBNP results of less than 300 pg/mL effectively rules out acute congestive heart failure with 99% negative predictive value. Performed By: #### A DIFF, PBNP, TROPHS, CBC, GFR, MDW, ANEU, BMP #### [address] [address] .Auto Diffon 05-18-2025 Basophil, Absolute 0.0 10 3/mcL Normal 0.0-0.3 [facility] Comment on above: Performed By: #### A DIFF, PBNP, TROPHS, CBC, GFR, MDW, ANEU, BMP #### [address] [address] Basophils/100 WBC (Bld) 0.2 % Normal 0.0-2.5 [facility] Comment on above: Performed By: #### A DIFF, PBNP, TROPHS, CBC, GFR, MDW, ANEU, BMP #### [address] [address] Eosinophil, Absolute 0.0 10 3/mcL Normal 0.0-0.7 [facility] Comment on above: Performed By: #### A DIFF, PBNP, TROPHS, CBC, GFR, MDW, ANEU, BMP #### [address] [address] Eosinophils/100 WBC (Bld) 0.0 % Normal 0.0-6.0 [facility] Comment on above: Performed By: #### A DIFF, PBNP, TROPHS, CBC, GFR, MDW, ANEU, BMP #### [address] [address] Lymphocyte, Absolute 0.7 10 3/mcL Low 0.9-4.3 [facility] Comment on above: Performed By: #### A DIFF, PBNP, TROPHS, CBC, GFR, MDW, ANEU, BMP #### [address] [address] Lymphocytes/100 WBC (Bld) 7.9 % Low 20.0-40.0 [facility] Comment on above: Performed By: #### A DIFF, PBNP, TROPHS, CBC, GFR, MDW, ANEU, BMP #### [place] [address] [place], [place] [address] Monocyte, Absolute 1.0 10 3/mcL Normal 0.1-1.4 [facility] Comment on above: Performed By: #### A DIFF, PBNP, TROPHS, CBC, GFR, MDW, ANEU, BMP #### [address] [address] Monocytes/100 WBC (Bld) 11.5 % Normal 2.0-13.0 [facility] Comment on above: Performed By: #### A DIFF, PBNP, TROPHS, CBC, GFR, MDW, ANEU, BMP #### [address] [address] Neutrophils/100 WBC (Bld) 80.4 % High 50.0-75.0 [facility] Comment on above: Performed By: #### A DIFF, PBNP, TROPHS, CBC, GFR, MDW, ANEU, BMP #### [address] [address] .GFRon 05-18-2025 Estimated Glomerular Filtration Rate 69 ml/min/1.73sqm Normal [facility] Comment on above: Result Comment: [...] TROPHS, CBC, GFR, MDW, ANEU, BMP #### [address] [address] .NEUABSon 05-18-2025 Neutrophil, Absolute 7.0 10 3/mcL Normal 2.3-8.1 [facility] Comment on above: Performed By: #### A DIFF, PBNP, TROPHS, CBC, GFR, MDW, ANEU, BMP #### [address] [address] BMPon 05-18-2025 BUN/Creatinine Ratio 29 ratio High 7-27 [facility] Comment on above: Performed By: #### A DIFF, PBNP, TROPHS, CBC, GFR, MDW, ANEU, BMP #### [address] [address] Calcium [Mass/Vol] 8.2 mg/dL Low 8.4-10.2 [facility] Comment on above: Performed By: #### A DIFF, PBNP, TROPHS, CBC, GFR, MDW, ANEU, BMP #### [address] [address] Chloride [Moles/Vol] 106 mmol/L Normal 98-107 [facility] Comment on above: Performed By: #### A DIFF, PBNP, TROPHS, CBC, GFR, MDW, ANEU, BMP #### [address] [address] CO2 [Moles/Vol] 37 mmol/L High 23-31 [facility] Comment on above: Performed By: #### A DIFF, PBNP, TROPHS, CBC, GFR, MDW, ANEU, BMP #### [address] [address] Creatinine [Mass/Vol] 0.90 mg/dL Normal 0.51-0.95 [facility] Comment on above: Performed By: #### A DIFF, PBNP, TROPHS, CBC, GFR, MDW, ANEU, BMP #### [address] [address] Electrolyte Balance 3.0 mEq/L Low 4.0-15.0 [facility] Comment on above: Performed By: #### A DIFF, PBNP, TROPHS, CBC, GFR, MDW, ANEU, BMP #### [address] [address] Glucose [Mass/Vol] 130 mg/dL High 83-110 [facility] Comment on above: Performed By: #### A DIFF, PBNP, TROPHS, CBC, GFR, MDW, ANEU, BMP #### [address] [address] Potassium [Moles/Vol] 4.1 mmol/L Normal 3.5-5.1 [facility] Comment on above: Performed By: #### A DIFF, PBNP, TROPHS, CBC, GFR, MDW, ANEU, BMP #### [address] [address] Sodium [Moles/Vol] 146 mmol/L High 136-145 [facility] Comment on above: Performed By: #### A DIFF, PBNP, TROPHS, CBC, GFR, MDW, ANEU, BMP #### [address] [address] Urea nitrogen [Mass/Vol] 26 mg/dL High 7-18 [facility] Comment on above: Performed By: #### A DIFF, PBNP, TROPHS, CBC, GFR, MDW, ANEU, BMP #### [address] [address] CBCon 05-18-2025 Erythrocyte distribution width (RBC) [Ratio] 17.9 % High 11.5-15.5 [facility] Comment on above: Performed By: #### A DIFF, PBNP, TROPHS, CBC, GFR, MDW, ANEU, BMP #### [address] [address] Hematocrit (Bld) [Volume fraction] 37.7 % Normal 34.0-46.0 [facility] Comment on above: Performed By: #### A DIFF, PBNP, TROPHS, CBC, GFR, MDW, ANEU, BMP #### [address] [address] Hgb 12.5 G/dL Normal 12.0-16.0 [facility] Comment on above: Performed By: #### A DIFF, PBNP, TROPHS, CBC, GFR, MDW, ANEU, BMP #### [place] [address] MCH (RBC) [Entitic mass] 30.4 pg Normal 27.0-33.0 [facility] Comment on above: Performed By: #### A DIFF, PBNP, TROPHS, CBC, GFR, MDW, ANEU, BMP #### [place] [address] MCHC 33.2 G/dL Normal 32.0-36.0 [facility] Comment on above: Performed By: #### A DIFF, PBNP, TROPHS, CBC, GFR, MDW, ANEU, BMP #### [address] [address] MCV (RBC) [Entitic vol] 91.4 fL Normal 80.0-99.0 [facility] Comment on above: Performed By: #### A DIFF, PBNP, TROPHS, CBC, GFR, MDW, ANEU, BMP #### [address] [address] Platelet 275 10 3/mcL Normal 150-450 [facility] Comment on above: Performed By: #### A DIFF, PBNP, TROPHS, CBC, GFR, MDW, ANEU, BMP #### [address] [address] Platelet mean volume (Bld) [Entitic vol] 9.3 fL Normal 6.6-10.5 [facility] Comment on above: Performed By: #### A DIFF, PBNP, TROPHS, CBC, GFR, MDW, ANEU, BMP #### [place] [address] RBC 4.13 10 6/mcL Normal 4.10-5.30 [facility] Comment on above: Performed By: #### A DIFF, PBNP, TROPHS, CBC, GFR, MDW, ANEU, BMP #### [place] [address] [place], [place] [address] WBC 8.7 10 3/mcL Normal 4.5-10.8 [facility] Comment on above: Performed By: #### A DIFF, PBNP, TROPHS, CBC, GFR, MDW, ANEU, BMP #### [facility] [address] [place], [place] [address] LABORATORYOrdered By: SYSTEM SYSTEM on 05-18-2025 Basophils [...] 05-18-2025 Magnesium [Mass/Vol] 1.9 mg/dL Normal 1.8-2.4 [facility] Comment on above: Performed By: #### A DIFF, PBNP, TROPHS, CBC, GFR, MDW, ANEU, BMP #### [address] [address] MYCOon 05-18-2025 Mycoplasma IgM Negative Normal [facility] Comment on above: Result Comment: INTE RPRETATION OF MYCOPLASMA IgM: Negative: IgM to M. pneumoniae Absent, or at levels below the assay limit of detection. Positive: IgM to M. pneumoniae Present. Invalid: Test results are invalid due to invalid internal control. Assay was performed in duplicate. Repeat testing is suggested if clinically indicated. Performed By: #### M RSAPCR #### [facility] [address] [place] [id number] #### CVFLURV #### [address] [address] PBNPon 05-18-2025 Natriuretic peptide B (Bld) [Mass/Vol] 6422 pg/mL High 0-125 [facility] Comment on above: Result Comment: NT-p roBNP results of less than 300 pg/mL effectively rules out acute congestive heart failure with 99% negative predictive value. Performed By: #### A DIFF, PBNP, TROPHS, CBC, GFR, MDW, ANEU, BMP #### [address] [address] .Auto Diffon 05-17-2025 Basophil, Absolute 0.0 10 3/mcL Normal 0.0-0.3 [facility] Comment on above: Performed By: #### M RSAPCR #### [place] [address] #### CVFLURV #### [address] [address] Basophils/100 WBC (Bld) 0.3 % Normal 0.0-2.5 [facility] Comment on above: Performed By: #### M RSAPCR #### [place] [address] #### CVFLURV #### [address] [address] Eosinophil, Absolute 0.0 10 3/mcL Normal 0.0-0.7 [facility] Comment on above: Performed By: #### M RSAPCR #### [place] [address] #### CVFLURV #### [address] [address] Eosinophils/100 WBC (Bld) 0.0 % Normal 0.0-6.0 [facility] Comment on above: Performed By: #### M RSAPCR #### [place] [address] #### CVFLURV #### [address] [address] Lymphocyte, Absolute 0.3 10 3/mcL Low 0.9-4.3 [facility] Comment on above: Performed By: #### M RSAPCR #### [place] [address] #### CVFLURV #### [address] [address] Lymphocytes/100 WBC (Bld) 6.4 % Low 20.0-40.0 [facility] Comment on above: Performed By: #### M RSAPCR #### [place] [address] #### CVFLURV #### [address] [address] Monocyte, Absolute 0.1 10 3/mcL Normal 0.1-1.4 [facility] Comment on above: Performed By: #### M RSAPCR #### [place] [address] #### CVFLURV #### [address] [address] Monocytes/100 WBC (Bld) 1.5 % Low 2.0-13.0 [facility] Comment on above: Performed By: #### M RSAPCR #### [place] [address] #### CVFLURV #### [address] [address] Neutrophils/100 WBC (Bld) 91.8 % High 50.0-75.0 [facility] Comment on above: Performed By: #### M RSAPCR #### [place] [address] #### CVFLURV #### [address] [address] .GFRon 05-17-2025 Estimated Glomerular Filtration Rate 66 ml/min/1.73sqm Normal [facility] Comment on above: Result Comment: [...] results. Performed By: #### M RSAPCR #### [place] [address] #### CVFLURV #### [address] [address] .NEUABSon 05-17-2025 Neutrophil, Absolute 3.6 10 3/mcL Normal 2.3-8.1 [facility] Comment on above: Performed By: #### M RSAPCR #### [place] [address] #### CVFLURV #### [address] [address] BMPon 05-17-2025 BUN/Creatinine Ratio 17 ratio Normal 7-27 [facility] Comment on above: Performed By: #### M RSAPCR #### [place] [address] #### CVFLURV #### [address] [address] Calcium [Mass/Vol] 8.0 mg/dL Low 8.4-10.2 [facility] Comment on above: Performed By: #### M RSAPCR #### [place] [address] #### CVFLURV #### [address] [address] Chloride [Moles/Vol] 107 mmol/L Normal 98-107 [facility] Comment on above: Performed By: #### M RSAPCR #### [place] [address] #### CVFLURV #### [address] [address] CO2 [Moles/Vol] 39 mmol/L High 23-31 [facility] Comment on above: Performed By: #### M RSAPCR #### [place] [address] #### CVFLURV #### [address] [address] Creatinine [Mass/Vol] 0.93 mg/dL Normal 0.51-0.95 [facility] Comment on above: Performed By: #### M RSAPCR #### [place] [address] #### CVFLURV #### [address] [address] Electrolyte Balance 2.0 mEq/L Low 4.0-15.0 [facility] Comment on above: Performed By: #### M RSAPCR #### [place] [address] #### CVFLURV #### [address] [address] Glucose [Mass/Vol] 174 mg/dL High 83-110 [facility] Comment on above: Performed By: #### M RSAPCR #### [place] [address] #### CVFLURV #### [address] [address] Potassium [Moles/Vol] 4.6 mmol/L Normal 3.5-5.1 [facility] Comment on above: Performed By: #### M RSAPCR #### [place] [address] #### CVFLURV #### [address] [address] Sodium [Moles/Vol] 148 mmol/L High 136-145 [facility] Comment on above: Performed By: #### M RSAPCR #### [place] [address] #### CVFLURV #### [address] [address] Urea nitrogen [Mass/Vol] 16 mg/dL Normal 7-18 [facility] Comment on above: Performed By: #### M RSAPCR #### [place] [address] #### CVFLURV #### [place] [address] CBCon 05-17-2025 Erythrocyte distribution width (RBC) [Ratio] 17.8 % High 11.5-15.5 [facility] Comment on above: Performed By: #### M RSAPCR #### [place] [address] #### CVFLURV #### [place] [address] Hematocrit (Bld) [Volume fraction] 38.0 % Normal 34.0-46.0 [facility] Comment on above: Performed By: #### M RSAPCR #### [place] [address] #### CVFLURV #### [place] [address] Hgb 12.3 G/dL Normal 12.0-16.0 [facility] Comment on above: Performed By: #### M RSAPCR #### [place] [address] #### CVFLURV #### [place] [address] MCH (RBC) [Entitic mass] 29.7 pg Normal 27.0-33.0 [facility] Comment on above: Performed By: #### M RSAPCR #### [place] [address] #### CVFLURV #### [place] [address] MCHC 32.2 G/dL Normal 32.0-36.0 [facility] Comment on above: Performed By: #### M RSAPCR #### [place] [address] #### CVFLURV #### [address] [address] MCV (RBC) [Entitic vol] 92.2 fL Normal 80.0-99.0 [facility] Comment on above: Performed By: #### M RSAPCR #### [place] [address] #### CVFLURV #### [address] [address] Platelet 257 10 3/mcL Normal 150-450 [facility] Comment on above: Performed By: #### M RSAPCR #### [place] [address] #### CVFLURV #### [address] [address] Platelet mean volume (Bld) [Entitic vol] 9.3 fL Normal 6.6-10.5 [facility] Comment on above: Performed By: #### M RSAPCR #### [place] [address] #### CVFLURV #### [address] [address] RBC 4.12 10 6/mcL Normal 4.10-5.30 [facility] Comment on above: Performed By: #### M RSAPCR #### [place] [address] #### CVFLURV #### [address] [address] WBC 4.0 10 3/mcL Low 4.5-10.8 [facility] Comment on above: Performed By: #### M RSAPCR #### [place] [address] #### CVFLURV #### [address] [address] CVFLURVon 05-17-2025 FLU A PCR Negative Normal Negative [facility] Comment on above: Performed By: #### M RSAPCR #### [place] [address] #### CVFLURV #### [address] [address] FLU B PCR Negative Normal Negative [facility] Comment on above: Performed By: #### M RSAPCR #### [address] [address] #### CVFLURV #### [address] [address] RSV PCR Negative Normal Negative [facility] Comment on above: Performed By: #### M RSAPCR #### [place] [address] #### CVFLURV #### [place] [address] SARS-CoV-2 (COVID-19) RNA IVANA+probe Ql (Unsp spec) Negative Normal Negative [facility] Comment on above: Result Comment: [...] results. Performed By: #### M RSAPCR #### [place] [address] #### CVFLURV #### [place] [address] LABORATORYOrdered By: SYSTEM SYSTEM on 05-17-2025 Natriuretic [...] Comment on above: Result Comment: [place] [id number] MRSA PCR Int See Below 2 *NA* [...] 05-17-2025 Magnesium [Mass/Vol] 1.5 mg/dL Low 1.8-2.4 [facility] Comment on above: Performed By: #### M RSAPCR #### [address] [address] #### CVFLURV #### [address] [address] MRSAPCRon 05-17-2025 MRSA (PCR) Not detected Normal Not Detected [facility] Comment on above: Result Comment: [place] [id number] Performed By: #### M RSAPCR #### [address] [address] #### CVFLURV #### [address] [address] MRSA PCR Int See Below Normal [facility] Comment on above: Result Comment: [...] Performed By: #### M RSAPCR #### [address] [address] #### CVFLURV #### [address] [address] No Panel Informationon 05-17 Legionella Urine Ag Presumptive negative for L. pneumophila serogroup 1 antigen in urine, suggesting no recent or current infection. Legionnaire's disease cannot be ruled out since other serogroups and species may also cause disease. [facility] Work Phone: Microscopic examination of blood, culture Blood Culture: No Growth at 5 days. [facility] Work Phone: Streptococcus Pneumoniae Urine Antig Presumptive negative for pneumococcal pneumonia, suggesting no current or recent pneumococcal infection. Infection due to Strep pneumoniae cannot be ruled out since the antigen present in the sample may be below the detection limit of the test. [facility] Work Phone: Comment on above: This test has not be en evaluated on patients taking antibiotics for greater than 24 hours or on patients who have recently completed an antibiotic regimen. The accuracy of this test has not been proven in young children. PBNPon 05-17-2025 Natriuretic peptide B (Bld) [Mass/Vol] 5616 pg/mL High 0-125 [facility] Comment on above: Result Comment: NT-p roBNP results of less than 300 pg/mL effectively rules out acute congestive heart failure with 99% negative predictive value. Performed By: #### M RSAPCR #### [place] [address] #### CVFLURV #### [address] [address] .Auto Diffon 05-16-2025 Basophil, Absolute 0.1 10 3/mcL Normal 0.0-0.3 [facility] Comment on above: Performed By: #### A DIFF, PBNP, TROPHS, CBC, GFR, MDW, ANEU, BMP #### [address] [address] Basophils/100 WBC (Bld) 2.0 % Normal 0.0-2.5 [facility] Comment on above: Performed By: #### A DIFF, PBNP, TROPHS, CBC, GFR, MDW, ANEU, BMP #### [address] [address] Eosinophil, Absolute 0.1 10 3/mcL Normal 0.0-0.7 [facility] Comment on above: Performed By: #### A DIFF, PBNP, TROPHS, CBC, GFR, MDW, ANEU, BMP #### [address] [address] Eosinophils/100 WBC (Bld) 1.9 % Normal 0.0-6.0 [facility] Comment on above: Performed By: #### A DIFF, PBNP, TROPHS, CBC, GFR, MDW, ANEU, BMP #### [address] [address] Lymphocyte, Absolute 1.4 10 3/mcL Normal 0.9-4.3 [facility] Comment on above: Performed By: #### A DIFF, PBNP, TROPHS, CBC, GFR, MDW, ANEU, BMP #### [address] [address] Lymphocytes/100 WBC (Bld) 20.4 % Normal 20.0-40.0 [facility] Comment on above: Performed By: #### A DIFF, PBNP, TROPHS, CBC, GFR, MDW, ANEU, BMP #### [address] [address] Monocyte, Absolute 0.8 10 3/mcL Normal 0.1-1.4 [facility] Comment on above: Performed By: #### A DIFF, PBNP, TROPHS, CBC, GFR, MDW, ANEU, BMP #### [address] [address] Monocytes/100 WBC (Bld) 12.2 % Normal 2.0-13.0 [facility] Comment on above: Performed By: #### A DIFF, PBNP, TROPHS, CBC, GFR, MDW, ANEU, BMP #### [address] [address] Neutrophils/100 WBC (Bld) 63.5 % Normal 50.0-75.0 [facility] Comment on above: Performed By: #### A DIFF, PBNP, TROPHS, CBC, GFR, MDW, ANEU, BMP #### [address] [address] .GFRon 05-16-2025 Estimated Glomerular Filtration Rate 67 ml/min/1.73sqm Normal [facility] Comment on above: Result Comment: [...] Performed By: #### M RSAPCR #### [address] [address] #### CVFLURV #### [address] [address] .MDWon 05-16-2025 Monocyte Distribution Width 16.95 Normal 0.00-20.00 [facility] Comment on above: Result Comment: For ED adult patients suspected of sepsis, MDW<=20.0 does not rule out sepsis or risk of sepsis Performed By: #### A DIFF, PBNP, TROPHS, CBC, GFR, MDW, ANEU, BMP #### [address] [address] .NEUABSon 05-16-2025 Neutrophil, Absolute 4.2 10 3/mcL Normal 2.3-8.1 [facility] Comment on above: Performed By: #### A DIFF, PBNP, TROPHS, CBC, GFR, MDW, ANEU, BMP #### [address] [address] BMPon 05-16-2025 BUN/Creatinine Ratio 13 ratio Normal 7-27 [facility] Comment on above: Performed By: #### A DIFF, PBNP, TROPHS, CBC, GFR, MDW, ANEU, BMP #### [address] [address] Calcium [Mass/Vol] 8.4 mg/dL Normal 8.4-10.2 [facility] Comment on above: Performed By: #### A DIFF, PBNP, TROPHS, CBC, GFR, MDW, ANEU, BMP #### [address] [address] Chloride [Moles/Vol] 109 mmol/L High 98-107 [facility] Comment on above: Performed By: #### A DIFF, PBNP, TROPHS, CBC, GFR, MDW, ANEU, BMP #### [address] [address] CO2 [Moles/Vol] 38 mmol/L High 23-31 [facility] Comment on above: Performed By: #### A DIFF, PBNP, TROPHS, CBC, GFR, MDW, ANEU, BMP #### [address] [address] Creatinine [Mass/Vol] 0.92 mg/dL Normal 0.51-0.95 [facility] Comment on above: Performed By: #### A DIFF, PBNP, TROPHS, CBC, GFR, MDW, ANEU, BMP #### [address] [address] Electrolyte Balance 2.0 mEq/L Low 4.0-15.0 [facility] Comment on above: Performed By: #### A DIFF, PBNP, TROPHS, CBC, GFR, MDW, ANEU, BMP #### [address] [address] Glucose [Mass/Vol] 124 mg/dL High 83-110 [facility] Comment on above: Performed By: #### A DIFF, PBNP, TROPHS, CBC, GFR, MDW, ANEU, BMP #### [address] [address] Potassium [Moles/Vol] 4.0 mmol/L Normal 3.5-5.1 [facility] Comment on above: Performed By: #### A DIFF, PBNP, TROPHS, CBC, GFR, MDW, ANEU, BMP #### [address] [address] Sodium [Moles/Vol] 149 mmol/L High 136-145 [facility] Comment on above: Performed By: #### A DIFF, PBNP, TROPHS, CBC, GFR, MDW, ANEU, BMP #### [address] [address] Urea nitrogen [Mass/Vol] 12 mg/dL Normal 7-18 [facility] Comment on above: Performed By: #### A DIFF, PBNP, TROPHS, CBC, GFR, MDW, ANEU, BMP #### [address] [address] CBCon 05-16-2025 Erythrocyte distribution width (RBC) [Ratio] 18.0 % High 11.5-15.5 [facility] Comment on above: Performed By: #### A DIFF, PBNP, TROPHS, CBC, GFR, MDW, ANEU, BMP #### [address] [address] Hematocrit (Bld) [Volume fraction] 43.3 % Normal 34.0-46.0 [facility] Comment on above: Performed By: #### A DIFF, PBNP, TROPHS, CBC, GFR, MDW, ANEU, BMP #### [address] [address] Hgb 13.8 G/dL Normal 12.0-16.0 [facility] Comment on above: Performed By: #### A DIFF, PBNP, TROPHS, CBC, GFR, MDW, ANEU, BMP #### [address] [address] MCH (RBC) [Entitic mass] 29.8 pg Normal 27.0-33.0 [facility] Comment on above: Performed By: #### A DIFF, PBNP, TROPHS, CBC, GFR, MDW, ANEU, BMP #### [address] [address] MCHC 31.9 G/dL Low 32.0-36.0 [facility] Comment on above: Performed By: #### A DIFF, PBNP, TROPHS, CBC, GFR, MDW, ANEU, BMP #### [address] [address] MCV (RBC) [Entitic vol] 93.3 fL Normal 80.0-99.0 [facility] Comment on above: Performed By: #### A DIFF, PBNP, TROPHS, CBC, GFR, MDW, ANEU, BMP #### [address] [address] Platelet 264 10 3/mcL Normal 150-450 [facility] Comment on above: Performed By: #### A DIFF, PBNP, TROPHS, CBC, GFR, MDW, ANEU, BMP #### [address] [address] Platelet mean volume (Bld) [Entitic vol] 9.0 fL Normal 6.6-10.5 [facility] Comment on above: Performed By: #### A DIFF, PBNP, TROPHS, CBC, GFR, MDW, ANEU, BMP #### [address] [address] RBC 4.64 10 6/mcL Normal 4.10-5.30 [facility] Comment on above: Performed By: #### A DIFF, PBNP, TROPHS, CBC, GFR, MDW, ANEU, BMP #### [address] [address] WBC 6.6 10 3/mcL Normal 4.5-10.8 [facility] Comment on above: Performed By: #### A DIFF, PBNP, TROPHS, CBC, GFR, MDW, ANEU, BMP #### [place] [address] [place] [address] LABORATORYOrdered By: Haider Ellis on 05-16-2025 Appearance [...] a homogeneous sandwich chemiluminescent immunoassay based on [employer] technology. PBNPon 05-16-2025 Natriuretic peptide B (Bld) [Mass/Vol] 4760 pg/mL High 0-125 [facility] Comment on above: Result Comment: NT-p roBNP results of less than 300 pg/mL effectively rules out acute congestive heart failure with 99% negative predictive value. Performed By: #### A DIFF, PBNP, TROPHS, CBC, GFR, MDW, ANEU, BMP #### [address] [address] [facility] High Sensitivity Troponin I 38 ng/L Normal 0-51 [facility] Comment on above: Result Comment: High Sensitive Troponin I Reference Ranges: Female: 0-51 ng/L Male: 0-76 ng/L Testing performed on Dimension EXDOZ using a homogeneous sandwich chemiluminescent immunoassay based on [employer] technology. Performed By: #### A DIFF, PBNP, TROPHS, CBC, GFR, MDW, ANEU, BMP #### [address] [address] UAon 05-16-2025 Color (U) Yellow Normal [facility] Comment on above: Performed By: #### A DIFF, PBNP, TROPHS, CBC, GFR, MDW, ANEU, BMP #### [address] [address] Glucose (U) [Mass/Vol] Negative Normal Negative [facility] Comment on above: Performed By: #### A DIFF, PBNP, TROPHS, CBC, GFR, MDW, ANEU, BMP #### [address] [address] Ketones Ql (U) Negative Normal Negative [facility] Comment on above: Performed By: #### A DIFF, PBNP, TROPHS, CBC, GFR, MDW, ANEU, BMP #### [place] [address] UA Appear Slightly Cloudy Abnormal Clear [facility] Comment on above: Performed By: #### A DIFF, PBNP, TROPHS, CBC, GFR, MDW, ANEU, BMP #### [place] [address] UA Blood Negative Normal Negative [facility] Comment on above: Performed By: #### A DIFF, PBNP, TROPHS, CBC, GFR, MDW, ANEU, BMP #### [place] [address] UA Leuk Est Negative Normal Negative [facility] Comment on above: Performed By: #### A DIFF, PBNP, TROPHS, CBC, GFR, MDW, ANEU, BMP #### [place] [address] UA Nitrite Negative Normal Negative [facility] Comment on above: Performed By: #### A DIFF, PBNP, TROPHS, CBC, GFR, MDW, ANEU, BMP #### [place] [address] UA pH 6.0 Normal 5.0 - 8.0 [facility] Comment on above: Performed By: #### A DIFF, PBNP, TROPHS, CBC, GFR, MDW, ANEU, BMP #### [place] [address] UA Protein 30 mg/dL Normal Negative [facility] Comment on above: Performed By: #### A DIFF, PBNP, TROPHS, CBC, GFR, MDW, ANEU, BMP #### [place] [address] UA Spec Grav 1.015 Normal 1.015-1.025 [facility] Comment on above: Performed By: #### A DIFF, PBNP, TROPHS, CBC, GFR, MDW, ANEU, BMP #### [place] [address] UA Specimen Type Not Given Normal [facility] Comment on above: Performed By: #### A DIFF, PBNP, TROPHS, CBC, GFR, MDW, ANEU, BMP #### [place] [address] UA Urobilinogen 0.2 E.U./dL Normal 0.2-1.0 [facility] Comment on above: Performed By: #### A DIFF, PBNP, TROPHS, CBC, GFR, MDW, ANEU, BMP #### [place] [address] Urobilinogen (U) [Mass/Vol] Negative Normal Negative [facility] Comment on above: Performed By: #### A DIFF, PBNP, TROPHS, CBC, GFR, MDW, ANEU, BMP #### [place] [address] UAMICon 05-16-2025 UA Bacteria 2+ /hpf Abnormal Negative [facility] Comment on above: Performed By: #### A DIFF, PBNP, TROPHS, CBC, GFR, MDW, ANEU, BMP #### [place] [address] UA RBC Negative Normal 0-2 [facility] Comment on above: Performed By: #### A DIFF, PBNP, TROPHS, CBC, GFR, MDW, ANEU, BMP #### [place] [address] UA Squam Epithelial 3-5 Normal 0-20 [facility] Comment on above: Performed By: #### A DIFF, PBNP, TROPHS, CBC, GFR, MDW, ANEU, BMP #### [place] [address] UA WBC 0-2 Normal 0-5 [facility] Comment on above: Performed By: #### A DIFF, PBNP, TROPHS, CBC, GFR, MDW, ANEU, BMP #### [place] [address] UA Yeast Trace Abnormal [facility] Comment on above: Performed By: #### A DIFF, PBNP, TROPHS, CBC, GFR, MDW, ANEU, BMP #### [place] [address] [place], [place] [address] XR CHEST 1 VIEWon 05-16-2025 XR CHEST [...] PM Ordering Provider: BRIAN TRINIDAD Interpreted by: nAthony Merida Preliminary Report By: Jakob Gonzales Electronically signed By Anthony Merida Dictated Date: 05/16/2025 8:18:04 PM Prelim Date: 05/16/2025 8:22:21 PM Sign Date: 05/16/2025 8:27:46 PM Ordering Provider: BRIAN TRINIDAD Normal [facility] .Auto Diffon 03-05-2025 Basophil, Absolute 0.0 10 3/mcL Normal 0.0-0.3 [facility] Comment on above: Performed By: #### M RSAPCR #### [facility] [address] [place] [id number] #### CVFLURV #### [place] [address] [place], [place] [address] Basophils/100 WBC (Bld) 0.1 % Normal 0.0-2.5 [facility] Comment on above: Performed By: #### M RSAPCR #### [place] [address] #### CVFLURV #### [address] [address] Eosinophil, Absolute 0.0 10 3/mcL Normal 0.0-0.7 [facility] Comment on above: Performed By: #### M RSAPCR #### [place] [address] #### CVFLURV #### [address] [address] Eosinophils/100 WBC (Bld) 0.0 % Normal 0.0-6.0 [facility] Comment on above: Performed By: #### M RSAPCR #### [place] [address] #### CVFLURV #### [address] [address] Lymphocyte, Absolute 0.4 10 3/mcL Low 0.9-4.3 [facility] Comment on above: Performed By: #### M RSAPCR #### [place] [address] #### CVFLURV #### [address] [address] Lymphocytes/100 WBC (Bld) 4.4 % Low 20.0-40.0 [facility] Comment on above: Performed By: #### M RSAPCR #### [place] [address] #### CVFLURV #### [address] [address] Monocyte, Absolute 0.2 10 3/mcL Normal 0.1-1.4 [facility] Comment on above: Performed By: #### M RSAPCR #### [place] [address] #### CVFLURV #### [address] [address] Monocytes/100 WBC (Bld) 2.7 % Normal 2.0-13.0 [facility] Comment on above: Performed By: #### M RSAPCR #### [address] [address] #### CVFLURV #### [address] [address] Neutrophils/100 WBC (Bld) 92.8 % High 50.0-75.0 [facility] Comment on above: Performed By: #### M RSAPCR #### [place] [address] #### CVFLURV #### [address] [address] .GFRon 03-05-2025 Estimated Glomerular Filtration Rate 88 ml/min/1.73sqm Normal [facility] Comment on above: Result Comment: [...] results. Performed By: #### M RSAPCR #### [place] [address] #### CVFLURV #### [address] [address] .NEUABSon 03-05-2025 Neutrophil, Absolute 7.6 10 3/mcL Normal 2.3-8.1 [facility] Comment on above: Performed By: #### M RSAPCR #### [place] [id number] #### CVFLURV #### [address] [address] BMPon 03-05-2025 BUN/Creatinine Ratio 28 ratio High 7-27 [facility] Comment on above: Performed By: #### M RSAPCR #### [place] [address] #### CVFLURV #### [address] [address] Calcium [Mass/Vol] 8.5 mg/dL Normal 8.4-10.2 [facility] Comment on above: Performed By: #### M RSAPCR #### [place] [address] #### CVFLURV #### [place] [address] Chloride [Moles/Vol] 107 mmol/L Normal 98-107 [facility] Comment on above: Performed By: #### M RSAPCR #### [place] [address] #### CVFLURV #### [address] [address] CO2 [Moles/Vol] 29 mmol/L Normal 23-31 [facility] Comment on above: Performed By: #### M RSAPCR #### [place] [address] #### CVFLURV #### [address] [address] Creatinine [Mass/Vol] 0.74 mg/dL Normal 0.51-0.95 [facility] Comment on above: Performed By: #### M RSAPCR #### [place] [address] #### CVFLURV #### [address] [address] Electrolyte Balance 5.0 mEq/L Normal 4.0-15.0 [facility] Comment on above: Performed By: #### M RSAPCR #### [place] [address] #### CVFLURV #### [address] [address] Glucose [Mass/Vol] 160 mg/dL High 80-115 [facility] Comment on above: Performed By: #### M RSAPCR #### [place] [address] #### CVFLURV #### [address] [address] Potassium [Moles/Vol] 4.6 mmol/L Normal 3.5-5.1 [facility] Comment on above: Performed By: #### M RSAPCR #### [place] [address] #### CVFLURV #### [address] [address] Sodium [Moles/Vol] 141 mmol/L Normal 136-145 [facility] Comment on above: Performed By: #### M RSAPCR #### [place] [address] #### CVFLURV #### [address] [address] Urea nitrogen [Mass/Vol] 21 mg/dL High 7-18 [facility] Comment on above: Performed By: #### M RSAPCR #### [place] [address] #### CVFLURV #### [address] [address] CBCon 03-05-2025 Erythrocyte distribution width (RBC) [Ratio] 16.5 % High 11.5-15.5 [facility] Comment on above: Performed By: #### M RSAPCR #### [place] [address] #### CVFLURV #### [address] [address] Hematocrit (Bld) [Volume fraction] 38.1 % Normal 34.0-46.0 [facility] Comment on above: Performed By: #### M RSAPCR #### [place] [address] #### CVFLURV #### [address] [address] Hgb 12.4 G/dL Normal 12.0-16.0 [facility] Comment on above: Performed By: #### M RSAPCR #### [place] [address] #### CVFLURV #### [address] [address] MCH (RBC) [Entitic mass] 29.7 pg Normal 27.0-33.0 [facility] Comment on above: Performed By: #### M RSAPCR #### [place] [address] #### CVFLURV #### [place] [address] MCHC 32.4 G/dL Normal 32.0-36.0 [facility] Comment on above: Performed By: #### M RSAPCR #### [place] [address] #### CVFLURV #### [place] [address] MCV (RBC) [Entitic vol] 91.7 fL Normal 80.0-99.0 [facility] Comment on above: Performed By: #### M RSAPCR #### [place] [address] #### CVFLURV #### [address] [address] Platelet 318 10 3/mcL Normal 150-450 [facility] Comment on above: Performed By: #### M RSAPCR #### [place] [address] #### CVFLURV #### [address] [address] Platelet mean volume (Bld) [Entitic vol] 8.2 fL Normal 6.6-10.5 [facility] Comment on above: Performed By: #### M RSAPCR #### [place] [address] #### CVFLURV #### [address] [address] RBC 4.16 10 6/mcL Normal 4.10-5.30 [facility] Comment on above: Performed By: #### M RSAPCR #### [place] [address] #### CVFLURV #### [place] [address] WBC 8.2 10 3/mcL Normal 4.5-10.8 [facility] Comment on above: Performed By: #### M RSAPCR #### [place] [address] #### CVFLURV #### [place] [address] LABORATORYOrdered By: SYSTEM SYSTEM on 03-05-2025 Basophils [...] Basophil, Absolute 0.1 10 3/mcL Normal 0.0-0.3 [facility] Comment on above: Performed By: #### A DIFF, PBNP, TROPHS, CBC, GFR, MDW, ANEU, BMP #### [address] [address] Basophils/100 WBC (Bld) 0.9 % Normal 0.0-2.5 [facility] Comment on above: Performed By: #### A DIFF, PBNP, TROPHS, CBC, GFR, MDW, ANEU, BMP #### [address] [address] Eosinophil, Absolute 0.2 10 3/mcL Normal 0.0-0.7 [facility] Comment on above: Performed By: #### A DIFF, PBNP, TROPHS, CBC, GFR, MDW, ANEU, BMP #### [address] [address] Eosinophils/100 WBC (Bld) 1.9 % Normal 0.0-6.0 [facility] Comment on above: Performed By: #### A DIFF, PBNP, TROPHS, CBC, GFR, MDW, ANEU, BMP #### [address] [address] Lymphocyte, Absolute 1.9 10 3/mcL Normal 0.9-4.3 [facility] Comment on above: Performed By: #### A DIFF, PBNP, TROPHS, CBC, GFR, MDW, ANEU, BMP #### [address] [address] Lymphocytes/100 WBC (Bld) 22.2 % Normal 20.0-40.0 [facility] Comment on above: Performed By: #### A DIFF, PBNP, TROPHS, CBC, GFR, MDW, ANEU, BMP #### [address] [address] Monocyte, Absolute 1.0 10 3/mcL Normal 0.1-1.4 [facility] Comment on above: Performed By: #### A DIFF, PBNP, TROPHS, CBC, GFR, MDW, ANEU, BMP #### [address] [address] Monocytes/100 WBC (Bld) 11.9 % Normal 2.0-13.0 [facility] Comment on above: Performed By: #### A DIFF, PBNP, TROPHS, CBC, GFR, MDW, ANEU, BMP #### [address] [address] Neutrophils/100 WBC (Bld) 63.1 % Normal 50.0-75.0 [facility] Comment on above: Performed By: #### A DIFF, PBNP, TROPHS, CBC, GFR, MDW, ANEU, BMP #### [address] [address] .GFRon 03-04-2025 Estimated Glomerular Filtration Rate 75 ml/min/1.73sqm Normal [facility] Comment on above: Result Comment: [...] results. Performed By: #### M RSAPCR #### [place] [address] #### CVFLURV #### [address] [address] .MDWon 03-04-2025 Monocyte Distribution Width 17.56 Normal 0.00-20.00 [facility] Comment on above: Result Comment: For ED adult patients suspected of sepsis, MDW<=20.0 does not rule out sepsis or risk of sepsis Performed By: #### M RSAPCR #### [place] [address] #### CVFLURV #### [address] [address] .NEUABSon 03-04-2025 Neutrophil, Absolute 5.3 10 3/mcL Normal 2.3-8.1 [facility] Comment on above: Performed By: #### M RSAPCR #### [place] [address] #### CVFLURV #### [address] [address] BMPon 03-04-2025 BUN/Creatinine Ratio 18 ratio Normal 7-27 [facility] Comment on above: Performed By: #### M RSAPCR #### [place] [address] #### CVFLURV #### [address] [address] Calcium [Mass/Vol] 9.0 mg/dL Normal 8.4-10.2 [facility] Comment on above: Performed By: #### M RSAPCR #### [place] [address] #### CVFLURV #### [address] [address] Chloride [Moles/Vol] 106 mmol/L Normal 98-107 [facility] Comment on above: Performed By: #### M RSAPCR #### [place] [address] #### CVFLURV #### [address] [address] CO2 [Moles/Vol] 34 mmol/L High 23-31 [facility] Comment on above: Performed By: #### M RSAPCR #### [place] [address] #### CVFLURV #### [address] [address] Creatinine [Mass/Vol] 0.84 mg/dL Normal 0.51-0.95 [facility] Comment on above: Performed By: #### M RSAPCR #### [place] [address] #### CVFLURV #### [address] [address] Electrolyte Balance 3.0 mEq/L Low 4.0-15.0 [facility] Comment on above: Performed By: #### M RSAPCR #### [place] [address] #### CVFLURV #### [address] [address] Glucose [Mass/Vol] 137 mg/dL High 80-115 [facility] Comment on above: Performed By: #### M RSAPCR #### [place] [address] #### CVFLURV #### [address] [address] Potassium [Moles/Vol] 4.1 mmol/L Normal 3.5-5.1 [facility] Comment on above: Performed By: #### M RSAPCR #### [place] [address] #### CVFLURV #### [address] [address] Sodium [Moles/Vol] 143 mmol/L Normal 136-145 [facility] Comment on above: Performed By: #### M RSAPCR #### [address] [address] #### CVFLURV #### [address] [address] Urea nitrogen [Mass/Vol] 15 mg/dL Normal 7-18 [facility] Comment on above: Performed By: #### M RSAPCR #### [address] [address] #### CVFLURV #### [address] [address] CBCon 03-04-2025 Erythrocyte distribution width (RBC) [Ratio] 16.9 % High 11.5-15.5 [facility] Comment on above: Performed By: #### A DIFF, PBNP, TROPHS, CBC, GFR, MDW, ANEU, BMP #### [address] [address] Hematocrit (Bld) [Volume fraction] 45.7 % Normal 34.0-46.0 [facility] Comment on above: Performed By: #### A DIFF, PBNP, TROPHS, CBC, GFR, MDW, ANEU, BMP #### [address] [address] Hgb 14.9 G/dL Normal 12.0-16.0 [facility] Comment on above: Performed By: #### A DIFF, PBNP, TROPHS, CBC, GFR, MDW, ANEU, BMP #### [address] [address] MCH (RBC) [Entitic mass] 30.0 pg Normal 27.0-33.0 [facility] Comment on above: Performed By: #### A DIFF, PBNP, TROPHS, CBC, GFR, MDW, ANEU, BMP #### [address] [address] MCHC 32.5 G/dL Normal 32.0-36.0 [facility] Comment on above: Performed By: #### A DIFF, PBNP, TROPHS, CBC, GFR, MDW, ANEU, BMP #### [address] [address] MCV (RBC) [Entitic vol] 92.2 fL Normal 80.0-99.0 [facility] Comment on above: Performed By: #### A DIFF, PBNP, TROPHS, CBC, GFR, MDW, ANEU, BMP #### [address] [address] Platelet 369 10 3/mcL Normal 150-450 [facility] Comment on above: Performed By: #### A DIFF, PBNP, TROPHS, CBC, GFR, MDW, ANEU, BMP #### [address] [address] Platelet mean volume (Bld) [Entitic vol] 8.1 fL Normal 6.6-10.5 [facility] Comment on above: Performed By: #### A DIFF, PBNP, TROPHS, CBC, GFR, MDW, ANEU, BMP #### [address] [address] RBC 4.95 10 6/mcL Normal 4.10-5.30 [facility] Comment on above: Performed By: #### A DIFF, PBNP, TROPHS, CBC, GFR, MDW, ANEU, BMP #### [address] [address] WBC 8.4 10 3/mcL Normal 4.5-10.8 [facility] Comment on above: Performed By: #### A DIFF, PBNP, TROPHS, CBC, GFR, MDW, ANEU, BMP #### [address] [address] CVFLURVon 03-04-2025 FLU A PCR Negative Normal Negative [facility] Comment on above: Result Comment: [place] [id number] Performed By: #### M RSAPCR #### [facility] [address] [place] [address] #### CVFLURV #### [address] [address] FLU B PCR Negative Normal Negative [facility] Comment on above: Result Comment: Note [place] [id number] Performed By: #### M RSAPCR #### [address] [address] #### CVFLURV #### [address] [address] RSV PCR Negative Normal Negative [facility] Comment on above: Result Comment: Note s [id number] Performed By: #### M RSAPCR #### [address] [address] #### CVFLURV #### [place] [address] [place], [place] [address] SARS-CoV-2 (COVID-19) RNA IVANA+probe Ql (Unsp spec) Negative Normal Negative [facility] Comment on above: Result Comment: Note s [id number] This test has been authorized by FDA [...] Performed By: #### M RSAPCR #### [address] [address] #### CVFLURV #### [place] [address] [place] [id number] LABORATORYOrdered By: Guillermo Lebron on 03-04-2025 Adenovirus DNA IVANA+non-probe Ql (Nph) Not Detected *NA* (03/04/25 10:09 AM) Invalid Interpretation Code Not Detected AH Auto Viro/Sero SS B. parapertussis [id number] DNA IVANA+non-probe Ql (Nph) Not Detected *NA* [...] his assay has been validated in the [facility] for use with nasopharyngeal specimens in [facility]. If a non-validated specimen or test collection [...] Comment on above: Result Comment: [place] [id number] FLUBV RNA IVANA+probe Ql (Resp) Negative 10 (03/04/25 10:09 AM) Normal Negative [facility] Comment on above: Result Comment: [place] [id number] RSV PCR Negative 11 (03/04/25 10:09 AM) Normal Negative [facility] Comment on above: Result Comment: Note s [id number] SARS-CoV-2 (COVID-19) RNA IVANA+probe Ql (Resp) Negative 7, 8 (03/04/25 10:09 AM) Normal Negative [facility] Comment on above: Result Comment: Note s [id number] Interpretive Data: T his test has been [...] ng/L Male: 0-76 ng/L Testing performed on [employer] using a homogeneous sandwich chemiluminescent immunoassay based on [employer] technology. Urea nitrogen [Mass/Vol] 15 mg/dL Normal 7 - 18 mg/dL AO ADM SS Urea nitrogen/Creatinine [Mass ratio] 18 ratio Normal 7 - 27 ratio AO ADM SS WBC (Bld) [#/Vol] 8.4 103/mcL Normal 4.5 - 10.8 10^3/mcL AO Workflow SS PBNPon 03-04-2025 Natriuretic peptide B (Bld) [Mass/Vol] 2664 pg/mL High 0-125 [facility] Comment on above: Result Comment: NT-p roBNP results of less than 300 pg/mL effectively rules out acute congestive heart failure with 99% negative predictive value. Performed By: #### A DIFF, PBNP, TROPHS, CBC, GFR, MDW, ANEU, BMP #### [place] [address] RESCVIDon 03-04-2025 Adenovirus Not detected Normal Not Detected [facility] Comment on above: Performed By: #### M RSAPCR #### [place] [address] #### CVFLURV #### [place] [address] Bordetella Parapertussis Not detected Normal Not Detected [facility] Comment on above: Performed By: #### M RSAPCR #### [place] [address] #### CVFLURV #### [place] [address] Bordetella Pertussis Not detected Normal Not Detected [facility] Comment on above: Performed By: #### M RSAPCR #### [place] [address] #### CVFLURV #### [address] [address] Chlamydophila pneumoniae Not detected Normal Not Detected [facility] Comment on above: Performed By: #### M RSAPCR #### [place] [address] #### CVFLURV #### [place] [address] Coronavirus 229E (Not COVID-19) Not detected Normal Not Detected [facility] Comment on above: Performed By: #### M RSAPCR #### [place] [address] #### CVFLURV #### [address] [address] Coronavirus HKU1 (Not COVID-19) Not detected Normal Not Detected [facility] Comment on above: Performed By: #### M RSAPCR #### [place] [address] #### CVFLURV #### [address] [address] Coronavirus NL63 (Not COVID-19) Not detected Normal Not Detected [facility] Comment on above: Performed By: #### M RSAPCR #### [place] [address] #### CVFLURV #### [address] [address] Coronavirus OC43 (Not COVID-19) Not detected Normal Not Detected [facility] Comment on above: Performed By: #### M RSAPCR #### [place] [address] #### CVFLURV #### [address] [address] Human Metapneumovirus Not detected Normal Not Detected [facility] Comment on above: Performed By: #### M RSAPCR #### [place] [address] #### CVFLURV #### [address] [address] Influenza A Not detected Normal Not Detected [facility] Comment on above: Performed By: #### M RSAPCR #### [place] [id number] #### CVFLURV #### [address] [address] Influenza B Not detected Normal Not Detected [facility] Comment on above: Performed By: #### M RSAPCR #### [address] [place], [place] [address] #### CVFLURV #### [address] [address] Mycoplasma pneumoniae Not detected Normal Not Detected [facility] Comment on above: Performed By: #### M RSAPCR #### [facility] [address] [place] [address] #### CVFLURV #### [address] [address] Parainfluenza 1 Not detected Normal Not Detected [facility] Comment on above: Performed By: #### M RSAPCR #### [place] [id number] #### CVFLURV #### [address] [address] Parainfluenza 2 Not detected Normal Not Detected [facility] Comment on above: Performed By: #### M RSAPCR #### [place] [address] #### CVFLURV #### [address] [address] Parainfluenza 3 Not detected Normal Not Detected [facility] Comment on above: Performed By: #### M RSAPCR #### [address] [address] #### CVFLURV #### [address] [address] Parainfluenza 4 Not detected Normal Not Detected [facility] Comment on above: Performed By: #### M RSAPCR #### [facility] [address] [place] [address] #### CVFLURV #### [address] [address] Respiratory Syncytial Virus Not detected Normal Not Detected [facility] Comment on above: Performed By: #### M RSAPCR #### [address] [address] #### CVFLURV #### [address] [address] Rhinovirus/Enterovirus Not detected Normal Not Detected [facility] Comment on above: Performed By: #### M RSAPCR #### [address] [address] #### CVFLURV #### [address] [address] SARS-CoV-2 (COVID-19) RNA IVANA+probe Ql (Unsp spec) Not detected Normal Not Detected [facility] Comment on above: Result Comment: This assay has been validated in the [facility] for use with nasopharyngeal specimens in [facility]. If a non-validated specimen or test collection [...] Performed By: #### M RSAPCR #### [address] [address] #### CVFLURV #### [place] [address] [place], [place] [address] [facility] 03-04-2025 High Sensitivity Troponin I 33 ng/L Normal 0-51 [facility] Comment on above: Result Comment: High Sensitive Troponin I Reference Ranges: Female: 0-51 ng/L Male: 0-76 ng/L Testing performed on [employer] using a homogeneous sandwich chemiluminescent immunoassay based on [employer] technology. Performed By: #### M RSAPCR #### [facility] [address] [place] [address] #### CVFLURV #### [place] [address] [place], [place] [address] XR CHEST 1 VIEWon 03-04-2025 XR CHEST [...] 6:41:45 AM Ordering Provider: EMMANUEL KILLIAN Normal [facility] MYCOon 02-21-2025 Mycoplasma IgM Negative [facility] Comment on above: Result Comment: INTE [...] GFR, MDW, ANEU, BMP #### [place] [address] [place], [place] [address] .Auto Diffon 02-20-2025 Basophil, Absolute 0.1 10 3/mcL Normal 0.0-0.3 [facility] Comment on above: Performed By: #### A DIFF, PBNP, TROPHS, CBC, GFR, MDW, ANEU, BMP #### [address] [address] Basophils/100 WBC (Bld) 1.4 % Normal 0.0-2.5 [facility] Comment on above: Performed By: #### A DIFF, PBNP, TROPHS, CBC, GFR, MDW, ANEU, BMP #### [address] [address] Eosinophil, Absolute 0.2 10 3/mcL Normal 0.0-0.7 [facility] Comment on above: Performed By: #### A DIFF, PBNP, TROPHS, CBC, GFR, MDW, ANEU, BMP #### [address] [address] Eosinophils/100 WBC (Bld) 2.3 % Normal 0.0-6.0 [facility] Comment on above: Performed By: #### A DIFF, PBNP, TROPHS, CBC, GFR, MDW, ANEU, BMP #### [address] [address] Lymphocyte, Absolute 1.9 10 3/mcL Normal 0.9-4.3 [facility] Comment on above: Performed By: #### A DIFF, PBNP, TROPHS, CBC, GFR, MDW, ANEU, BMP #### [address] [address] Lymphocytes/100 WBC (Bld) 28.3 % Normal 20.0-40.0 [facility] Comment on above: Performed By: #### A DIFF, PBNP, TROPHS, CBC, GFR, MDW, ANEU, BMP #### [address] [address] Monocyte, Absolute 1.0 10 3/mcL Normal 0.1-1.4 [facility] Comment on above: Performed By: #### A DIFF, PBNP, TROPHS, CBC, GFR, MDW, ANEU, BMP #### [address] [address] Monocytes/100 WBC (Bld) 14.2 % High 2.0-13.0 [facility] Comment on above: Performed By: #### A DIFF, PBNP, TROPHS, CBC, GFR, MDW, ANEU, BMP #### [place] [address] [place], [place] [address] Neutrophils/100 WBC (Bld) 53.8 % Normal 50.0-75.0 [facility] Comment on above: Performed By: #### A DIFF, PBNP, TROPHS, CBC, GFR, MDW, ANEU, BMP #### [address] [address] .GFRon 02-20-2025 Estimated Glomerular Filtration Rate 88 ml/min/1.73sqm Normal [facility] Comment on above: Result Comment: [...] TROPHS, CBC, GFR, MDW, ANEU, BMP #### [address] [address] .NEUABSon 02-20-2025 Neutrophil, Absolute 3.7 10 3/mcL Normal 2.3-8.1 [facility] Comment on above: Performed By: #### A DIFF, PBNP, TROPHS, CBC, GFR, MDW, ANEU, BMP #### [address] [address] BMPon 02-20-2025 BUN/Creatinine Ratio 22 ratio Normal 7-27 [facility] Comment on above: Performed By: #### A DIFF, PBNP, TROPHS, CBC, GFR, MDW, ANEU, BMP #### [address] [address] Calcium [Mass/Vol] 8.1 mg/dL Low 8.4-10.2 [facility] Comment on above: Performed By: #### A DIFF, PBNP, TROPHS, CBC, GFR, MDW, ANEU, BMP #### [address] [address] Chloride [Moles/Vol] 107 mmol/L Normal 98-107 [facility] Comment on above: Performed By: #### A DIFF, PBNP, TROPHS, CBC, GFR, MDW, ANEU, BMP #### [address] [address] CO2 [Moles/Vol] 32 mmol/L High 23-31 [facility] Comment on above: Performed By: #### A DIFF, PBNP, TROPHS, CBC, GFR, MDW, ANEU, BMP #### [address] [address] Creatinine [Mass/Vol] 0.74 mg/dL Normal 0.55-1.02 [facility] Comment on above: Result Comment: Test ing performed on Siemens Dimension EXL analyzer using a modified kinetic [place] technique. Performed By: #### A DIFF, PBNP, TROPHS, CBC, GFR, MDW, ANEU, BMP #### [address] [address] Electrolyte Balance 3.0 mEq/L Low 4.0-15.0 [facility] Comment on above: Performed By: #### A DIFF, PBNP, TROPHS, CBC, GFR, MDW, ANEU, BMP #### [address] [address] Glucose [Mass/Vol] 105 mg/dL Normal 80-115 [facility] Comment on above: Performed By: #### A DIFF, PBNP, TROPHS, CBC, GFR, MDW, ANEU, BMP #### [address] [address] Potassium [Moles/Vol] 3.9 mmol/L Normal 3.5-5.1 [facility] Comment on above: Performed By: #### A DIFF, PBNP, TROPHS, CBC, GFR, MDW, ANEU, BMP #### [place] [address] [place] [id number] Sodium [Moles/Vol] 142 mmol/L Normal 136-145 [facility] Comment on above: Performed By: #### A DIFF, PBNP, TROPHS, CBC, GFR, MDW, ANEU, BMP #### [place] [id number] Urea nitrogen [Mass/Vol] 16 mg/dL Normal 7-18 [facility] Comment on above: Performed By: #### A DIFF, PBNP, TROPHS, CBC, GFR, MDW, ANEU, BMP #### [place] [id number] CBCon 02-20-2025 Erythrocyte distribution width (RBC) [Ratio] 16.1 % High 11.5-15.5 [facility] Comment on above: Performed By: #### A DIFF, PBNP, TROPHS, CBC, GFR, MDW, ANEU, BMP #### [address] [address] Hematocrit (Bld) [Volume fraction] 37.9 % Normal 34.0-46.0 [facility] Comment on above: Performed By: #### A DIFF, PBNP, TROPHS, CBC, GFR, MDW, ANEU, BMP #### [address] [address] Hgb 12.2 G/dL Normal 12.0-16.0 [facility] Comment on above: Performed By: #### A DIFF, PBNP, TROPHS, CBC, GFR, MDW, ANEU, BMP #### [address] [address] MCH (RBC) [Entitic mass] 29.4 pg Normal 27.0-33.0 [facility] Comment on above: Performed By: #### A DIFF, PBNP, TROPHS, CBC, GFR, MDW, ANEU, BMP #### [address] [address] MCHC 32.2 G/dL Normal 32.0-36.0 [facility] Comment on above: Performed By: #### A DIFF, PBNP, TROPHS, CBC, GFR, MDW, ANEU, BMP #### [address] [address] MCV (RBC) [Entitic vol] 91.2 fL Normal 80.0-99.0 [facility] Comment on above: Performed By: #### A DIFF, PBNP, TROPHS, CBC, GFR, MDW, ANEU, BMP #### [address] [address] Platelet 304 10 3/mcL Normal 150-450 [facility] Comment on above: Performed By: #### A DIFF, PBNP, TROPHS, CBC, GFR, MDW, ANEU, BMP #### [address] [address] Platelet mean volume (Bld) [Entitic vol] 8.4 fL Normal 6.6-10.5 [facility] Comment on above: Performed By: #### A DIFF, PBNP, TROPHS, CBC, GFR, MDW, ANEU, BMP #### [address] [address] RBC 4.16 10 6/mcL Normal 4.10-5.30 [facility] Comment on above: Performed By: #### A DIFF, PBNP, TROPHS, CBC, GFR, MDW, ANEU, BMP #### [address] [address] WBC 6.9 10 3/mcL Normal 4.5-10.8 [facility] Comment on above: Performed By: #### A DIFF, PBNP, TROPHS, CBC, GFR, MDW, ANEU, BMP #### [address] [address] MGon 02-20-2025 Magnesium [Mass/Vol] 1.6 mg/dL Low 1.8-2.4 [facility] Comment on above: Performed By: #### A DIFF, PBNP, TROPHS, CBC, GFR, MDW, ANEU, BMP #### [address] [address] MYCOon 02-20-2025 Mycoplasma IgG Positive Normal [facility] Comment on above: Result Comment: INTE RPRETATION OF MYCOPLASMA IgG BY EIA: Negative: No detectable M. pneumoniae IgG antibody. Positive: Mycoplasma pneumoniae IgG antibody Detected. Equivocal: Equivocal for IgG antibodies to Mycoplasma pneumoniae. Suggest repeat testing in 10-14 days. Performed By: #### A DIFF, PBNP, TROPHS, CBC, GFR, MDW, ANEU, BMP #### [address] [address] .Auto Diffon 02-19-2025 Basophil, Absolute 0.1 10 3/mcL Normal 0.0-0.3 [facility] Comment on above: Performed By: #### A DIFF, PBNP, TROPHS, CBC, GFR, MDW, ANEU, BMP #### [address] [address] Basophils/100 WBC (Bld) 0.6 % Normal 0.0-2.5 [facility] Comment on above: Performed By: #### A DIFF, PBNP, TROPHS, CBC, GFR, MDW, ANEU, BMP #### [address] [address] Eosinophil, Absolute 0.1 10 3/mcL Normal 0.0-0.7 [facility] Comment on above: Performed By: #### A DIFF, PBNP, TROPHS, CBC, GFR, MDW, ANEU, BMP #### [address] [address] Eosinophils/100 WBC (Bld) 0.6 % Normal 0.0-6.0 [facility] Comment on above: Performed By: #### A DIFF, PBNP, TROPHS, CBC, GFR, MDW, ANEU, BMP #### [address] [address] Lymphocyte, Absolute 1.7 10 3/mcL Normal 0.9-4.3 [facility] Comment on above: Performed By: #### A DIFF, PBNP, TROPHS, CBC, GFR, MDW, ANEU, BMP #### [address] [address] Lymphocytes/100 WBC (Bld) 17.7 % Low 20.0-40.0 [facility] Comment on above: Performed By: #### A DIFF, PBNP, TROPHS, CBC, GFR, MDW, ANEU, BMP #### [address] [address] Monocyte, Absolute 0.8 10 3/mcL Normal 0.1-1.4 [facility] Comment on above: Performed By: #### A DIFF, PBNP, TROPHS, CBC, GFR, MDW, ANEU, BMP #### [address] [address] Monocytes/100 WBC (Bld) 8.0 % Normal 2.0-13.0 [facility] Comment on above: Performed By: #### A DIFF, PBNP, TROPHS, CBC, GFR, MDW, ANEU, BMP #### [address] [address] Neutrophils/100 WBC (Bld) 73.1 % Normal 50.0-75.0 [facility] Comment on above: Performed By: #### A DIFF, PBNP, TROPHS, CBC, GFR, MDW, ANEU, BMP #### [address] [address] Basophil, Absolute 0.1 10 3/mcL Normal 0.0-0.3 [facility] Comment on above: Performed By: #### A DIFF, PBNP, TROPHS, CBC, GFR, MDW, ANEU, BMP #### [address] [address] Basophils/100 WBC (Bld) 0.7 % Normal 0.0-2.5 [facility] Comment on above: Performed By: #### A DIFF, PBNP, TROPHS, CBC, GFR, MDW, ANEU, BMP #### [address] [address] Eosinophil, Absolute 0.2 10 3/mcL Normal 0.0-0.7 [facility] Comment on above: Performed By: #### A DIFF, PBNP, TROPHS, CBC, GFR, MDW, ANEU, BMP #### [address] [address] Eosinophils/100 WBC (Bld) 1.7 % Normal 0.0-6.0 [facility] Comment on above: Performed By: #### A DIFF, PBNP, TROPHS, CBC, GFR, MDW, ANEU, BMP #### [address] [address] Lymphocyte, Absolute 2.3 10 3/mcL Normal 0.9-4.3 [facility] Comment on above: Performed By: #### A DIFF, PBNP, TROPHS, CBC, GFR, MDW, ANEU, BMP #### [address] [address] Lymphocytes/100 WBC (Bld) 21.0 % Normal 20.0-40.0 [facility] Comment on above: Performed By: #### A DIFF, PBNP, TROPHS, CBC, GFR, MDW, ANEU, BMP #### [address] [address] Monocyte, Absolute 1.0 10 3/mcL Normal 0.1-1.4 [facility] Comment on above: Performed By: #### A DIFF, PBNP, TROPHS, CBC, GFR, MDW, ANEU, BMP #### [address] [address] Monocytes/100 WBC (Bld) 9.2 % Normal 2.0-13.0 [facility] Comment on above: Performed By: #### A DIFF, PBNP, TROPHS, CBC, GFR, MDW, ANEU, BMP #### [address] [address] Neutrophils/100 WBC (Bld) 67.4 % Normal 50.0-75.0 [facility] Comment on above: Performed By: #### A DIFF, PBNP, TROPHS, CBC, GFR, MDRoshan, MARK, BMP #### [address] [address] .GFRon 02-19-2025 Estimated Glomerular Filtration Rate 90 ml/min/1.73sqm Normal [facility] Comment on above: Result Comment: [...] TROPHS, CBC, GFR, MDRoshan, MARK, BMP #### [address] [address] Estimated Glomerular Filtration Rate 81 ml/min/1.73sqm Normal [facility] Comment on above: Result Comment: [...] TROPHS, CBC, GFR, MDW, ANEU, BMP #### [address] [address] .MDWon 02-19-2025 Monocyte Distribution Width 18.70 Normal 0.00-20.00 [facility] Comment on above: Result Comment: For ED adult patients suspected of sepsis, MDW<=20.0 does not rule out sepsis or risk of sepsis Performed By: #### A DIFF, PBNP, TROPHS, CBC, GFR, MDW, ANEU, BMP #### [address] [address] .NEUABSon 02-19-2025 Neutrophil, Absolute 7.2 10 3/mcL Normal 2.3-8.1 [facility] Comment on above: Performed By: #### A DIFF, PBNP, TROPHS, CBC, GFR, MDW, ANEU, BMP #### [address] [address] Neutrophil, Absolute 7.3 10 3/mcL Normal 2.3-8.1 [facility] Comment on above: Performed By: #### A DIFF, PBNP, TROPHS, CBC, GFR, MDW, ANEU, BMP #### [address] [address] BMPon 02-19-2025 BUN/Creatinine Ratio 19 ratio Normal 7-27 [facility] Comment on above: Performed By: #### A DIFF, PBNP, TROPHS, CBC, GFR, MDW, ANEU, BMP #### [address] [address] Calcium [Mass/Vol] 8.2 mg/dL Low 8.4-10.2 [facility] Comment on above: Performed By: #### A DIFF, PBNP, TROPHS, CBC, GFR, MDW, ANEU, BMP #### [address] [address] Chloride [Moles/Vol] 108 mmol/L High 98-107 [facility] Comment on above: Performed By: #### A DIFF, PBNP, TROPHS, CBC, GFR, MDW, ANEU, BMP #### [address] [address] CO2 [Moles/Vol] 28 mmol/L Normal 23-31 [facility] Comment on above: Performed By: #### A DIFF, PBNP, TROPHS, CBC, GFR, MDW, ANEU, BMP #### [address] [address] Creatinine [Mass/Vol] 0.72 mg/dL Normal 0.55-1.02 [facility] Comment on above: Result Comment: Test ing performed on Siemens Dimension EXL analyzer using a modified kinetic Francisco technique. Performed By: #### A DIFF, PBNP, TROPHS, CBC, GFR, MDW, ANEU, BMP #### [address] [address] Electrolyte Balance 7.0 mEq/L Normal 4.0-15.0 [facility] Comment on above: Performed By: #### A DIFF, PBNP, TROPHS, CBC, GFR, MDW, ANEU, BMP #### [address] [address] Glucose [Mass/Vol] 132 mg/dL High 80-115 [facility] Comment on above: Performed By: #### A DIFF, PBNP, TROPHS, CBC, GFR, MDW, ANEU, BMP #### [address] [address] Potassium [Moles/Vol] 4.7 mmol/L Normal 3.5-5.1 [facility] Comment on above: Performed By: #### A DIFF, PBNP, TROPHS, CBC, GFR, MDW, ANEU, BMP #### [address] [address] Sodium [Moles/Vol] 143 mmol/L Normal 136-145 [facility] Comment on above: Performed By: #### A DIFF, PBNP, TROPHS, CBC, GFR, MDW, ANEU, BMP #### [address] [address] Urea nitrogen [Mass/Vol] 14 mg/dL Normal 7-18 [facility] Comment on above: Performed By: #### A DIFF, PBNP, TROPHS, CBC, GFR, MDW, ANEU, BMP #### [address] [address] CBCon 02-19-2025 Erythrocyte distribution width (RBC) [Ratio] 15.7 % High 11.5-15.5 [facility] Comment on above: Performed By: #### A DIFF, PBNP, TROPHS, CBC, GFR, MDW, ANEU, BMP #### [place] [address] Hematocrit (Bld) [Volume fraction] 38.8 % Normal 34.0-46.0 [facility] Comment on above: Performed By: #### A DIFF, PBNP, TROPHS, CBC, GFR, MDW, ANEU, BMP #### [place] [address] Hgb 12.6 G/dL Normal 12.0-16.0 [facility] Comment on above: Performed By: #### A DIFF, PBNP, TROPHS, CBC, GFR, MDW, ANEU, BMP #### [place] [address] MCH (RBC) [Entitic mass] 30.0 pg Normal 27.0-33.0 [facility] Comment on above: Performed By: #### A DIFF, PBNP, TROPHS, CBC, GFR, MDW, ANEU, BMP #### [place] [address] MCHC 32.5 G/dL Normal 32.0-36.0 [facility] Comment on above: Performed By: #### A DIFF, PBNP, TROPHS, CBC, GFR, MDW, ANEU, BMP #### [place] [id number] MCV (RBC) [Entitic vol] 92.2 fL Normal 80.0-99.0 [facility] Comment on above: Performed By: #### A DIFF, PBNP, TROPHS, CBC, GFR, MDW, ANEU, BMP #### [address] [address] Platelet 310 10 3/mcL Normal 150-450 [facility] Comment on above: Performed By: #### A DIFF, PBNP, TROPHS, CBC, GFR, MDW, ANEU, BMP #### [address] [address] Platelet mean volume (Bld) [Entitic vol] 8.6 fL Normal 6.6-10.5 [facility] Comment on above: Performed By: #### A DIFF, PBNP, TROPHS, CBC, GFR, MDW, ANEU, BMP #### [address] [address] RBC 4.21 10 6/mcL Normal 4.10-5.30 [facility] Comment on above: Performed By: #### A DIFF, PBNP, TROPHS, CBC, GFR, MDW, ANEU, BMP #### [address] [address] WBC 9.8 10 3/mcL Normal 4.5-10.8 [facility] Comment on above: Performed By: #### A DIFF, PBNP, TROPHS, CBC, GFR, MDW, ANEU, BMP #### [address] [address] Erythrocyte distribution width (RBC) [Ratio] 16.0 % High 11.5-15.5 [facility] Comment on above: Performed By: #### A DIFF, PBNP, TROPHS, CBC, GFR, MDW, ANEU, BMP #### [address] [address] Hematocrit (Bld) [Volume fraction] 39.3 % Normal 34.0-46.0 [facility] Comment on above: Performed By: #### A DIFF, PBNP, TROPHS, CBC, GFR, MDW, ANEU, BMP #### [address] [address] [address] Hgb 12.8 G/dL Normal 12.0-16.0 [facility] Comment on above: Performed By: #### A DIFF, PBNP, TROPHS, CBC, GFR, MDW, ANEU, BMP #### [address] [address] MCH (RBC) [Entitic mass] 29.7 pg Normal 27.0-33.0 [facility] Comment on above: Performed By: #### A DIFF, PBNP, TROPHS, CBC, GFR, MDW, ANEU, BMP #### [address] [address] MCHC 32.6 G/dL Normal 32.0-36.0 [facility] Comment on above: Performed By: #### A DIFF, PBNP, TROPHS, CBC, GFR, MDW, ANEU, BMP #### [place] [address] MCV (RBC) [Entitic vol] 91.1 fL Normal 80.0-99.0 [facility] Comment on above: Performed By: #### A DIFF, PBNP, TROPHS, CBC, GFR, MDW, ANEU, BMP #### [address] [address] Platelet 327 10 3/mcL Normal 150-450 [facility] Comment on above: Performed By: #### A DIFF, PBNP, TROPHS, CBC, GFR, MDW, ANEU, BMP #### [place] [address] Platelet mean volume (Bld) [Entitic vol] 8.2 fL Normal 6.6-10.5 [facility] Comment on above: Performed By: #### A DIFF, PBNP, TROPHS, CBC, GFR, MDW, ANEU, BMP #### [place] [address] RBC 4.31 10 6/mcL Normal 4.10-5.30 [facility] Comment on above: Performed By: #### A DIFF, PBNP, TROPHS, CBC, GFR, MDW, ANEU, BMP #### [place] [address] WBC 10.8 10 3/mcL Normal 4.5-10.8 [facility] Comment on above: Performed By: #### A DIFF, PBNP, TROPHS, CBC, GFR, MDW, ANEU, BMP #### [address] [address] CMPon 02-19-2025 Albumin Level 3.3 G/dL Low 3.4-4.8 [facility] Comment on above: Performed By: #### A DIFF, PBNP, TROPHS, CBC, GFR, MDW, ANEU, BMP #### [address] [address] Albumin/Globulin [Mass ratio] 1.0 {ratio} Low 1.1-2.5 [facility] Comment on above: Performed By: #### A DIFF, PBNP, TROPHS, CBC, GFR, MDW, ANEU, BMP #### [address] [address] ALP [Catalytic activity/Vol] 104 U/L Normal 40-135 [facility] Comment on above: Performed By: #### A DIFF, PBNP, TROPHS, CBC, GFR, MDW, ANEU, BMP #### [address] [address] ALT [Catalytic activity/Vol] 36 U/L Normal 14-59 [facility] Comment on above: Performed By: #### A DIFF, PBNP, TROPHS, CBC, GFR, MDW, ANEU, BMP #### [address] [address] AST [Catalytic activity/Vol] 38 U/L Normal 10-40 [facility] Comment on above: Performed By: #### A DIFF, PBNP, TROPHS, CBC, GFR, MDW, ANEU, BMP #### [address] [address] Bili Total 0.2 mg/dL Normal 0.2-1.0 [facility] Comment on above: Result Comment: Use of this assay is not recommended for patients undergoing treatment with eltrombopag due to the potential for falsely elevated results. Performed By: #### A DIFF, PBNP, TROPHS, CBC, GFR, MDW, ANEU, BMP #### [address] [address] BUN/Creatinine Ratio 19 ratio Normal 7-27 [facility] Comment on above: Performed By: #### A DIFF, PBNP, TROPHS, CBC, GFR, MDW, ANEU, BMP #### [address] [address] Calcium [Mass/Vol] 8.2 mg/dL Low 8.4-10.2 [facility] Comment on above: Performed By: #### A DIFF, PBNP, TROPHS, CBC, GFR, MDW, ANEU, BMP #### [address] [address] Chloride [Moles/Vol] 106 mmol/L Normal 98-107 [facility] Comment on above: Performed By: #### A DIFF, PBNP, TROPHS, CBC, GFR, MDW, ANEU, BMP #### [address] [address] CO2 [Moles/Vol] 32 mmol/L High 23-31 [facility] Comment on above: Performed By: #### A DIFF, PBNP, TROPHS, CBC, GFR, MDW, ANEU, BMP #### [address] [address] Creatinine [Mass/Vol] 0.79 mg/dL Normal 0.55-1.02 [facility] Comment on above: Result Comment: Test ing performed on Siemens Dimension EXL analyzer using a modified kinetic Francisco technique. Performed By: #### A DIFF, PBNP, TROPHS, CBC, GFR, MDW, ANEU, BMP #### [address] [address] Electrolyte Balance 4.0 mEq/L Normal 4.0-15.0 [facility] Comment on above: Performed By: #### A DIFF, PBNP, TROPHS, CBC, GFR, MDW, ANEU, BMP #### [address] [address] Globulin 3.2 G/dL Normal 1.5-3.8 [facility] Comment on above: Performed By: #### A DIFF, PBNP, TROPHS, CBC, GFR, MDW, ANEU, BMP #### [address] [address] Glucose [Mass/Vol] 114 mg/dL Normal 80-115 [facility] Comment on above: Performed By: #### A DIFF, PBNP, TROPHS, CBC, GFR, MDW, ANEU, BMP #### [address] [address] Potassium [Moles/Vol] 4.2 mmol/L Normal 3.5-5.1 [facility] Comment on above: Performed By: #### A DIFF, PBNP, TROPHS, CBC, GFR, MDW, ANEU, BMP #### [address] [address] Sodium [Moles/Vol] 142 mmol/L Normal 136-145 [facility] Comment on above: Performed By: #### A DIFF, PBNP, TROPHS, CBC, GFR, MDW, ANEU, BMP #### [address] [address] Total Protein 6.5 G/dL Normal 6.4-8.2 [facility] Comment on above: Performed By: #### A DIFF, PBNP, TROPHS, CBC, GFR, MDW, ANEU, BMP #### [address] [address] Urea nitrogen [Mass/Vol] 15 mg/dL Normal 7-18 [facility] Comment on above: Performed By: #### A DIFF, PBNP, TROPHS, CBC, GFR, MDW, ANEU, BMP #### [address] [address] CVFLURVon 02-19-2025 FLU A PCR Negative Normal Negative [facility] Comment on above: Performed By: #### M RSAPCR #### [place] [address] #### CVFLURV #### [place] [address] FLU B PCR Negative Normal Negative [facility] Comment on above: Performed By: #### M RSAPCR #### [address] [address] #### CVFLURV #### [place] [address] RSV PCR Negative Normal Negative [facility] Comment on above: Performed By: #### M RSAPCR #### [place] [address] #### CVFLURV #### [place] [address] SARS-CoV-2 (COVID-19) RNA IVANA+probe Ql (Unsp spec) Negative Normal Negative [facility] Comment on above: Result Comment: [...] results. Performed By: #### M RSAPCR #### [place] [address] #### CVFLURV #### [place] [address] LACon 02-19-2025 Lactic Acid Lvl 1.1 mmol/L Normal 0.4-2.0 [facility] Comment on above: Performed By: #### A DIFF, PBNP, TROPHS, CBC, GFR, MDW, ANEU, BMP #### [address] [address] MGon 02-19-2025 Magnesium [Mass/Vol] 1.8 mg/dL Normal 1.8-2.4 [facility] Comment on above: Performed By: #### A DIFF, PBNP, TROPHS, CBC, GFR, MDW, ANEU, BMP #### [address] [address] MRSAPCRon 02-19-2025 MRSA (PCR) Not detected Normal Not Detected [facility] Comment on above: Result Comment: Note [place] [id number] Performed By: #### M RSAPCR #### [place] [address] #### CVFLURV #### [place] [address] MRSA PCR Int Normal [facility] Comment on above: Result Comment: [...] Below Performed By: #### M RSAPCR #### [place] [address] #### CVFLURV #### [address] [address] PBNPon 02-19-2025 Natriuretic peptide B (Bld) [Mass/Vol] 2711 pg/mL High 0-125 [facility] Comment on above: Result Comment: NT-p roBNP results of less than 300 pg/mL effectively rules out acute congestive heart failure with 99% negative predictive value. Performed By: #### A DIFF, PBNP, TROPHS, CBC, GFR, MDW, ANEU, BMP #### [place] [id number] RESCVIDon 02-19-2025 Adenovirus Not detected Normal Not Detected [facility] Comment on above: Performed By: #### M RSAPCR #### [place] [address] #### CVFLURV #### [address] [address] Bordetella Parapertussis Not detected Normal Not Detected [facility] Comment on above: Performed By: #### M RSAPCR #### [place] [address] #### CVFLURV #### [address] [address] Bordetella Pertussis Not detected Normal Not Detected [facility] Comment on above: Performed By: #### M RSAPCR #### [place] [address] #### CVFLURV #### [address] [address] Chlamydophila pneumoniae Not detected Normal Not Detected [facility] Comment on above: Performed By: #### M RSAPCR #### [place] [address] #### CVFLURV #### [address] [address] Coronavirus 229E (Not COVID-19) Not detected Normal Not Detected [facility] Comment on above: Performed By: #### M RSAPCR #### [place] [address] #### CVFLURV #### [address] [address] Coronavirus HKU1 (Not COVID-19) Not detected Normal Not Detected [facility] Comment on above: Performed By: #### M RSAPCR #### [place] [id number] #### CVFLURV #### [address] [address] Coronavirus NL63 (Not COVID-19) Not detected Normal Not Detected [facility] Comment on above: Performed By: #### M RSAPCR #### [facility] [address] [place] [address] #### CVFLURV #### [address] [address] Coronavirus OC43 (Not COVID-19) Not detected Normal Not Detected [facility] Comment on above: Performed By: #### M RSAPCR #### [facility] [address] [place], [place] [address] #### CVFLURV #### [address] [address] Human Metapneumovirus Not detected Normal Not Detected [facility] Comment on above: Performed By: #### M RSAPCR #### [place] [id number] #### CVFLURV #### [address] [address] Influenza A Not detected Normal Not Detected [facility] Comment on above: Performed By: #### M RSAPCR #### [place] [id number] #### CVFLURV #### [address] [address] Influenza B Not detected Normal Not Detected [facility] Comment on above: Performed By: #### M RSAPCR #### [address] [address] #### CVFLURV #### [address] [address] Mycoplasma pneumoniae Not detected Normal Not Detected [facility] Comment on above: Performed By: #### M RSAPCR #### [facility] [address] [place] [address] #### CVFLURV #### [address] [address] Parainfluenza 1 Not detected Normal Not Detected [facility] Comment on above: Performed By: #### M RSAPCR #### [facility] [address] [place], [place] [id number] #### CVFLURV #### [address] [address] Parainfluenza 2 Not detected Normal Not Detected [facility] Comment on above: Performed By: #### M RSAPCR #### [place] [address] #### CVFLURV #### [address] [address] Parainfluenza 3 Not detected Normal Not Detected [facility] Comment on above: Performed By: #### M RSAPCR #### [place] [address] #### CVFLURV #### [address] [address] Parainfluenza 4 Not detected Normal Not Detected [facility] Comment on above: Performed By: #### M RSAPCR #### [place] [address] #### CVFLURV #### [address] [address] Respiratory Syncytial Virus Not detected Normal Not Detected [facility] Comment on above: Performed By: #### M RSAPCR #### [place] [address] #### CVFLURV #### [address] [address] Rhinovirus/Enterovirus Not detected Normal Not Detected [facility] Comment on above: Performed By: #### M RSAPCR #### [place] [address] #### CVFLURV #### [address] [address] SARS-CoV-2 (COVID-19) RNA IVANA+probe Ql (Unsp spec) Not detected Normal Not Detected [facility] Comment on above: Result Comment: This assay has been validated in the [facility] for use with nasopharyngeal specimens in [facility]. If a non-validated specimen or test collection [...] authorities. Performed By: #### M RSAPCR #### [place] [address] #### CVFLURV #### [address] [address] [facility] 02-19-2025 High Sensitivity Troponin I 27 ng/L Normal 0-51 [facility] Comment on above: Result Comment: High Sensitive Troponin I Reference Ranges: Female: 0-51 ng/L Male: 0-76 ng/L Testing performed on [employer] using a homogeneous sandwich chemiluminescent immunoassay based on [employer] technology. Performed By: #### A DIFF, PBNP, TROPHS, CBC, GFR, MDW, ANEU, BMP #### [address] [address] XR CHEST 1 VIEWon 02-19-2025 XR CHEST [...] 02/19/2025 1:37:16 AM Ordering Provider: CORNELIUS Rivero [facility] US ABDOMEN COMPLETEon 2024 US [...] 02/03/2025 11:50:40 AM Ordering Provider: EMMA Rivero [facility] .Auto Diffon 12-11-2024 Basophil, Absolute 0.1 10 3/mcL Normal 0.0-0.2 [facility] Comment on above: Performed By: #### M RSAPCR #### [place] [address] #### CVFLURV #### [address] [address] Basophils/100 WBC (Bld) 1.4 % Normal 0.0-2.5 [facility] Comment on above: Performed By: #### M RSAPCR #### [place] [address] #### CVFLURV #### [address] [address] Eosinophil, Absolute 0.2 10 3/mcL Normal 0.0-0.7 [facility] Comment on above: Performed By: #### M RSAPCR #### [place] [address] #### CVFLURV #### [address] [address] Eosinophils/100 WBC (Bld) 2.8 % Normal 0.0-7.0 [facility] Comment on above: Performed By: #### M RSAPCR #### [place] [address] #### CVFLURV #### [address] [address] Lymphocyte, Absolute 2.1 10 3/mcL Normal 0.9-4.3 [facility] Comment on above: Performed By: #### M RSAPCR #### [place] [address] #### CVFLURV #### [address] [address] Lymphocytes/100 WBC (Bld) 29.6 % Normal 20.0-40.0 [facility] Comment on above: Performed By: #### M RSAPCR #### [address] [address] #### CVFLURV #### [address] [address] Monocyte, Absolute 0.8 10 3/mcL Normal 0.1-1.4 [facility] Comment on above: Performed By: #### M RSAPCR #### [place] [address] #### CVFLURV #### [address] [address] Monocytes/100 WBC (Bld) 11.4 % Normal 2.0-13.0 [facility] Comment on above: Performed By: #### M RSAPCR #### [place] [address] #### CVFLURV #### [address] [address] Neutrophils/100 WBC (Bld) 54.8 % Normal 50.0-75.0 [facility] Comment on above: Performed By: #### M RSAPCR #### [place] [address] #### CVFLURV #### [address] [address] .GFRon 12-11-2024 GFR Non- 56 ml/min/1.73sqm Normal [facility] Comment on above: Result Comment: [...] TROPHS, CBC, GFR, MDW, ANEU, BMP #### [address] [address] GFR 67 ml/min/1.73sqm Normal [facility] Comment on above: Result Comment: [...] TROPHS, CBC, GFR, MDW, ANEU, BMP #### [address] [address] .NEUABSon 12-11-2024 Neutrophil, Absolute 3.9 10 3/mcL Normal 2.3-8.1 [facility] Comment on above: Performed By: #### M RSAPCR #### [address] [address] #### CVFLURV #### [address] [address] BMPon 12-11-2024 BUN/Creatinine Ratio 14 ratio Normal 7-27 [facility] Comment on above: Performed By: #### A DIFF, PBNP, TROPHS, CBC, GFR, MDW, ANEU, BMP #### [address] [address] Chloride [Moles/Vol] 105 mmol/L Normal 98-107 [facility] Comment on above: Performed By: #### A DIFF, PBNP, TROPHS, CBC, GFR, MDW, ANEU, BMP #### [address] [address] CO2 [Moles/Vol] 30 mmol/L Normal 23-31 [facility] Comment on above: Performed By: #### A DIFF, PBNP, TROPHS, CBC, GFR, MDW, ANEU, BMP #### [address] [address] Creatinine [Mass/Vol] 0.99 mg/dL Normal 0.55-1.02 [facility] Comment on above: Result Comment: Test ing performed on Siemens Dimension EXL analyzer using a modified kinetic [place] technique. Performed By: #### A DIFF, PBNP, TROPHS, CBC, GFR, MDW, ANEU, BMP #### [address] [address] Electrolyte Balance 8.0 mEq/L Normal 4.0-15.0 [facility] Comment on above: Performed By: #### A DIFF, PBNP, TROPHS, CBC, GFR, MDW, ANEU, BMP #### [address] [address] Glucose [Mass/Vol] 117 mg/dL High 80-115 [facility] Comment on above: Performed By: #### A DIFF, PBNP, TROPHS, CBC, GFR, MDW, ANEU, BMP #### [address] [address] Potassium [Moles/Vol] 4.7 mmol/L Normal 3.5-5.1 [facility] Comment on above: Performed By: #### A DIFF, PBNP, TROPHS, CBC, GFR, MDW, ANEU, BMP #### [address] [address] Sodium [Moles/Vol] 143 mmol/L Normal 136-145 [facility] Comment on above: Performed By: #### A DIFF, PBNP, TROPHS, CBC, GFR, MDW, ANEU, BMP #### [address] [place] [address] Urea nitrogen [Mass/Vol] 14 mg/dL Normal 7-18 [facility] Comment on above: Performed By: #### A DIFF, PBNP, TROPHS, CBC, GFR, MDW, ANEU, BMP #### [address] [address] Calcium [Mass/Vol] 9.8 mg/dL Normal 8.4-10.2 [facility] Comment on above: Performed By: #### A DIFF, PBNP, TROPHS, CBC, GFR, MDW, ANEU, BMP #### [address] [address] CBCon 12-11-2024 Erythrocyte distribution width (RBC) [Ratio] 14.6 % Normal 11.5-15.5 [facility] Comment on above: Performed By: #### M RSAPCR #### [place] [address] #### CVFLURV #### [address] [address] Hematocrit (Bld) [Volume fraction] 48.2 % High 34.0-46.0 [facility] Comment on above: Performed By: #### M RSAPCR #### [place] [address] #### CVFLURV #### [address] [address] Hgb 15.6 G/dL Normal 12.0-16.0 [facility] Comment on above: Performed By: #### M RSAPCR #### [place] [address] #### CVFLURV #### [address] [address] MCH (RBC) [Entitic mass] 30.5 pg Normal 27.0-33.0 [facility] Comment on above: Performed By: #### M RSAPCR #### [place] [address] #### CVFLURV #### [address] [address] MCHC 32.4 G/dL Normal 32.0-36.0 [facility] Comment on above: Performed By: #### M RSAPCR #### [place] [address] #### CVFLURV #### [address] [address] MCV (RBC) [Entitic vol] 94.2 fL Normal 80.0-99.0 [facility] Comment on above: Performed By: #### M RSAPCR #### [place] [address] #### CVFLURV #### [address] [address] Platelet 370 10 3/mcL Normal 150-450 [facility] Comment on above: Performed By: #### M RSAPCR #### [place] [address] #### CVFLURV #### [address] [address] Platelet mean volume (Bld) [Entitic vol] 9.1 fL Normal 6.6-10.5 [facility] Comment on above: Performed By: #### M RSAPCR #### [place] [address] #### CVFLURV #### [place] [address] RBC 5.12 10 6/mcL Normal 4.10-5.30 [facility] Comment on above: Performed By: #### M RSAPCR #### [place] [address] #### CVFLURV #### [place] [address] WBC 7.0 10 3/mcL Normal 4.5-10.8 [facility] Comment on above: Performed By: #### M RSAPCR #### [place] [address] #### CVFLURV #### [facility] [address] [place], [place] [address] LABORATORYOrdered By: SYSTEM SYSTEM on 12-11-2024 Basophils [...] Comment on above: Interpretive Data: Luis reinoso [employer] (CHEST, 1992, 102:[id number]) [...] Coag (PPP) [Time] 10.4 s Normal 9.0-14.4 [facility] Comment on above: Performed By: #### M RSAPCR #### [address] [address] #### CVFLURV #### [facility] [address] [place], [place] [address] PT International Ratio 0.9 Normal [facility] Comment on above: Result Comment: [employer] (CHEST, 1992, 102:312S-25S) recommended therapeutic range for oral anticoagulant therapy is: LOW RISK: Prophylaxis of venous thrombosis INR: 2.0-3.0 Treatment of pulmonary embolism 2.0-3.0 Prevention of systemic embolism 2.0-3.0 HIGH RISK: Mechanical prosthetic valves 2.5-3.5 Performed By: #### M RSAPCR #### [facility] [address] [place] [address] #### CVFLURV #### [address] [address] .Auto Diffon 10-23-2024 Basophil, Absolute 0.1 10 3/mcL Normal 0.0-0.2 [facility] Comment on above: Performed By: #### A DIFF, PBNP, TROPHS, CBC, GFR, MDW, ANEU, BMP #### [address] [address] Basophils/100 WBC (Bld) 1.7 % Normal 0.0-2.5 [facility] Comment on above: Performed By: #### A DIFF, PBNP, TROPHS, CBC, GFR, MDW, ANEU, BMP #### [address] [address] Eosinophil, Absolute 0.1 10 3/mcL Normal 0.0-0.7 [facility] Comment on above: Performed By: #### A DIFF, PBNP, TROPHS, CBC, GFR, MDW, ANEU, BMP #### [address] [address] Eosinophils/100 WBC (Bld) 2.2 % Normal 0.0-7.0 [facility] Comment on above: Performed By: #### A DIFF, PBNP, TROPHS, CBC, GFR, MDW, ANEU, BMP #### [address] [address] Lymphocyte, Absolute 2.0 10 3/mcL Normal 0.9-4.3 [facility] Comment on above: Performed By: #### A DIFF, PBNP, TROPHS, CBC, GFR, MDW, ANEU, BMP #### [address] [address] Lymphocytes/100 WBC (Bld) 31.1 % Normal 20.0-40.0 [facility] Comment on above: Performed By: #### A DIFF, PBNP, TROPHS, CBC, GFR, MDW, ANEU, BMP #### [address] [address] Monocyte, Absolute 0.8 10 3/mcL Normal 0.1-1.4 [facility] Comment on above: Performed By: #### A DIFF, PBNP, TROPHS, CBC, GFR, MDW, ANEU, BMP #### [address] [address] Monocytes/100 WBC (Bld) 12.1 % Normal 2.0-13.0 [facility] Comment on above: Performed By: #### A DIFF, PBNP, TROPHS, CBC, GFR, MDW, ANEU, BMP #### [address] [address] Neutrophils/100 WBC (Bld) 52.9 % Normal 50.0-75.0 [facility] Comment on above: Performed By: #### A DIFF, PBNP, TROPHS, CBC, GFR, MDW, ANEU, BMP #### [address] [address] .GFRon 10-23-2024 GFR 102 ml/min/1.73sqm Normal [facility] Comment on above: Result Comment: [...] TROPHS, CBC, GFR, MDW, ANEU, BMP #### [address] [address] GFR Non- 84 ml/min/1.73sqm Normal [facility] Comment on above: Result Comment: [...] TROPHS, CBC, GFR, MDW, ANEU, BMP #### [address] [address] .NEUABSon 10-23-2024 Neutrophil, Absolute 3.4 10 3/mcL Normal 2.3-8.1 [facility] Comment on above: Performed By: #### A DIFF, PBNP, TROPHS, CBC, GFR, MDW, ANEU, BMP #### [address] [address] A1Con 10-23-2024 Glucose [Mass/Vol] 117 mg/dL Normal [facility] Comment on above: Result Comment: Johnna mated Average Glucose calculated by equation ((28.7xA1C)-46.7) Estimated average glucose (eAG) is a calculated value from Hemoglobin A1C and is asset protection representative of the average blood glucose level in the last 2-3 month period. Normal range: less than 114 mg/dL Performed By: #### A DIFF, PBNP, TROPHS, CBC, GFR, MDW, ANEU, BMP #### [address] [address] HbA1c (Bld) [Mass fraction] 5.7 % Normal 4.3-6.4 [facility] Comment on above: Performed By: #### A DIFF, PBNP, TROPHS, CBC, GFR, MDW, ANEU, BMP #### [address] [address] CBCon 10-23-2024 Erythrocyte distribution width (RBC) [Ratio] 14.8 % Normal 11.5-15.5 [facility] Comment on above: Performed By: #### A DIFF, PBNP, TROPHS, CBC, GFR, MDW, ANEU, BMP #### [address] [address] Hematocrit (Bld) [Volume fraction] 44.0 % Normal 34.0-46.0 [facility] Comment on above: Performed By: #### A DIFF, PBNP, TROPHS, CBC, GFR, MDW, ANEU, BMP #### [address] [address] Hgb 14.5 G/dL Normal 12.0-16.0 [facility] Comment on above: Performed By: #### A DIFF, PBNP, TROPHS, CBC, GFR, MDW, ANEU, BMP #### [address] [address] MCH (RBC) [Entitic mass] 31.5 pg Normal 27.0-33.0 [facility] Comment on above: Performed By: #### A DIFF, PBNP, TROPHS, CBC, GFR, MDW, ANEU, BMP #### [address] [address] MCHC 32.9 G/dL Normal 32.0-36.0 [facility] Comment on above: Performed By: #### A DIFF, PBNP, TROPHS, CBC, GFR, MDW, ANEU, BMP #### [address] [address] MCV (RBC) [Entitic vol] 95.6 fL Normal 80.0-99.0 [facility] Comment on above: Performed By: #### A DIFF, PBNP, TROPHS, CBC, GFR, MDW, ANEU, BMP #### [address] [address] Platelet 365 10 3/mcL Normal 150-450 [facility] Comment on above: Performed By: #### A DIFF, PBNP, TROPHS, CBC, GFR, MDW, ANEU, BMP #### [address] [address] Platelet mean volume (Bld) [Entitic vol] 8.8 fL Normal 6.6-10.5 [facility] Comment on above: Performed By: #### A DIFF, PBNP, TROPHS, CBC, GFR, MDW, ANEU, BMP #### [address] [address] RBC 4.60 10 6/mcL Normal 4.10-5.30 [facility] Comment on above: Performed By: #### A DIFF, PBNP, TROPHS, CBC, GFR, MDW, ANEU, BMP #### [address] [address] WBC 6.5 10 3/mcL Normal 4.5-10.8 [facility] Comment on above: Performed By: #### A DIFF, PBNP, TROPHS, CBC, GFR, MDW, ANEU, BMP #### [address] [address] CMPon 10-23-2024 Albumin Level 3.4 G/dL Normal 3.4-4.8 [facility] Comment on above: Performed By: #### A DIFF, PBNP, TROPHS, CBC, GFR, MDW, ANEU, BMP #### [address] [address] Albumin/Globulin [Mass ratio] 1.0 {ratio} Low 1.1-2.5 [facility] Comment on above: Performed By: #### A DIFF, PBNP, TROPHS, CBC, GFR, MDW, ANEU, BMP #### [address] [address] [address] ALP [Catalytic activity/Vol] 99 U/L Normal 40-135 [facility] Comment on above: Performed By: #### A DIFF, PBNP, TROPHS, CBC, GFR, MDW, ANEU, BMP #### [address] [address] ALT [Catalytic activity/Vol] 19 U/L Normal 14-59 [facility] Comment on above: Performed By: #### A DIFF, PBNP, TROPHS, CBC, GFR, MDW, ANEU, BMP #### [address] [address] AST [Catalytic activity/Vol] 17 U/L Normal 10-40 [facility] Comment on above: Performed By: #### A DIFF, PBNP, TROPHS, CBC, GFR, MDW, ANEU, BMP #### [address] [address] Bili Total 0.4 mg/dL Normal 0.2-1.0 [facility] Comment on above: Result Comment: Use of this assay is not recommended for patients undergoing treatment with eltrombopag due to the potential for falsely elevated results. Performed By: #### A DIFF, PBNP, TROPHS, CBC, GFR, MDW, ANEU, BMP #### [address] [address] BUN/Creatinine Ratio 10 ratio Normal 7-27 [facility] Comment on above: Performed By: #### A DIFF, PBNP, TROPHS, CBC, GFR, MDW, ANEU, BMP #### [address] [address] Calcium [Mass/Vol] 9.2 mg/dL Normal 8.4-10.2 [facility] Comment on above: Performed By: #### A DIFF, PBNP, TROPHS, CBC, GFR, MDW, ANEU, BMP #### [address] [address] Chloride [Moles/Vol] 103 mmol/L Normal 98-107 [facility] Comment on above: Performed By: #### A DIFF, PBNP, TROPHS, CBC, GFR, MDW, ANEU, BMP #### [address] [address] CO2 [Moles/Vol] 31 mmol/L Normal 23-31 [facility] Comment on above: Performed By: #### A DIFF, PBNP, TROPHS, CBC, GFR, MDW, ANEU, BMP #### [address] [address] Creatinine [Mass/Vol] 0.69 mg/dL Normal 0.55-1.02 [facility] Comment on above: Result Comment: Test ing performed on Siemens Dimension EXL analyzer using a modified kinetic [place] technique. Performed By: #### A DIFF, PBNP, TROPHS, CBC, GFR, MDW, ANEU, BMP #### [address] [address] Electrolyte Balance 6.0 mEq/L Normal 4.0-15.0 [facility] Comment on above: Performed By: #### A DIFF, PBNP, TROPHS, CBC, GFR, MDW, ANEU, BMP #### [address] [address] Globulin 3.4 G/dL Normal [facility] Comment on above: Performed By: #### A DIFF, PBNP, TROPHS, CBC, GFR, MDW, ANEU, BMP #### [address] [address] Glucose [Mass/Vol] 86 mg/dL Normal 80-115 [facility] Comment on above: Performed By: #### A DIFF, PBNP, TROPHS, CBC, GFR, MDW, ANEU, BMP #### [address] [address] Potassium [Moles/Vol] 4.7 mmol/L Normal 3.5-5.1 [facility] Comment on above: Performed By: #### A DIFF, PBNP, TROPHS, CBC, GFR, MDW, ANEU, BMP #### [address] [address] Sodium [Moles/Vol] 140 mmol/L Normal 136-145 [facility] Comment on above: Performed By: #### A DIFF, PBNP, TROPHS, CBC, GFR, MDW, ANEU, BMP #### [address] [place], [place] [address] Total Protein 6.8 G/dL Normal 6.4-8.2 [facility] Comment on above: Performed By: #### A DIFF, PBNP, TROPHS, CBC, GFR, MDW, ANEU, BMP #### [address] [place], [place] [address] Urea nitrogen [Mass/Vol] 7 mg/dL Normal 7-18 [facility] Comment on above: Performed By: #### A DIFF, PBNP, TROPHS, CBC, GFR, MDW, ANEU, BMP #### [address] [place], [place] [address] LABORATORYOrdered By: SYSTEM SYSTEM on 10-23-2024 Albumin [...] calculated value from Hemoglobin A1C and is asset protection representative of the average blood glucose level [...] 10-23-2024 Cholesterol [Mass/Vol] 244 mg/dL High 0-200 [facility] Comment on above: Result Comment: Chol esterol Reference Interval: Less than 200 Desirable 200-239 Borderline high risk 240 and above High risk Performed By: #### A DIFF, PBNP, TROPHS, CBC, GFR, MDW, ANEU, BMP #### [address] [place], [place] [address] Cholesterol in HDL [Mass/Vol] 69 mg/dL High 40-60 [facility] Comment on above: Performed By: #### A DIFF, PBNP, TROPHS, CBC, GFR, MDW, ANEU, BMP #### [address] [place], [place] [address] Cholesterol in LDL [Mass/Vol] 148 mg/dL High 0-130 [facility] Comment on above: Performed By: #### A DIFF, PBNP, TROPHS, CBC, GFR, MDW, ANEU, BMP #### [address] [place], [place] [address] Triglyceride [Mass/Vol] 135 mg/dL Normal 0-150 [facility] Comment on above: Result Comment: Trig lyceride Reference Interval: Less than 150 Normal 150-199 Borderline high risk 200-499 High risk 500 or higher Very high risk Performed By: #### A DIFF, PBNP, TROPHS, CBC, GFR, MDW, ANEU, BMP #### [address] [address] TSHon 10-23-2024 TSH Qn 2.34 m[IU]/L Normal 0.36-3.74 [facility] Comment on above: Performed By: #### A DIFF, PBNP, TROPHS, CBC, GFR, MDW, ANEU, BMP #### [address] [address] CNCOon 10-02-2023 CNCO Letter Text Normal [facility] Frank 09-25-2023 CNPN Telephone (INTMWS) STEVEN KOENIG ([id number]) 1955 F Date Time Provider Department 09/25/23 ULISES HERMOSILLO INTMWS During your visit today, we recorded the following information about you: Nena Dozier RN 09/25/2023 4:02 PM Signed Patient calls to report that she is currently in [place] and will be there for the next several months. Patient is going to run out of medication and is unable to transfer prescriptions. Patient asking if provider would send prescriptions to [facility] in [place]. Pended 90 day request for review. AAMIR [...] states she will be coming back to [place]. Is just in [place] for a few months to help out her son. [employer]IST Allergies As of Date: 09/25/2023 (No Known Allergies) Date Reviewed: 05/09/2023 Reviewed by: Mely Griffin PA-C - Fully Assessed Reason for Visit: Medication Problem [65] Primary Visit Diagnosis:Coronary artery disease involving confederated coos coronary artery of confederated coos heart without angina pectoris [I25.10] Other Visit [...] 1 tablet by mouth once daily. - scyxdiyqrzl-twyvcyftf-t ilanter (TRELEGY ELLIPTA) 200-62.5-25 mcg inhalation powder Inhale 1 Puff as instructed once daily. Problem List As Of Date 09/25/2023 Noted Resolved Essential hypertension [I10] 12/14/2015 Recurrent major depress (more content not included)... Normal [facility] CNCOon 09-06-2023 CNCO Letter Text Normal [facility] CNPNon 06-13-2023 LINDAN Telephone (TREV) STEVEN KOENIG ([id number]) 1955 F Date Time Provider Department 06/13/23 [facility] PROVIDER TREV During your visit today, we recorded the following information about you: Elizabeth Ly Ma 06/13/2023 4:26 PM Signed Patient contacted via telephone regarding upcoming NEW patient appointment with Dr. Harris on 06/14/23. Patient informed of the following: This is the [facility] calling regarding your upcoming appointment with Dr. Harris. To avoid a delay in your care, please bring any radiology images that have been done outside of the [facility] Systems on a disk to [...] 1 TABLET BY MOUTH EVERY DAY - iigaxcmvvgo-zcisbbuyu-v ilanter (TRELEGY ELLIPTA) 200-62.5-25 mcg inhalation powder [...] none*09/28/2019 07/07/2020 PAD (peripheral artery disease) ([facility]) [I73.9] 09/28/2019 Anxiety and depression [F41.9, F32.A] 10/06/2019 Hypomagnesemia [E83.42] 10/22/2019 10/23/2019 Asthma [J45.909] 07/07/2020 07/07/2020 Prediabetes [R73.03] 02/04/2021 Chest pain [R07.9] 05/08/2021 Other chest pain [R07.89] 05/08/2021 Stenosis of carotid artery [I65.29] 05/08/2021 Mixed hyperlipidemia [E78.2] 05/08/2021 Abnormal stress test [R94.39] 08/26/2021 Dyspnea on exertion [R06.09] 08/26/2021 Coronary artery disease involving confederated coos tolbert*09/27/2021 Lung nodule [R91.1] 08/31/2022 History of hemoptysis [Z87.898] 11/20/2022 Encounter Status:Closed by ELIZABETH LY MA on 06/13/23 [facility] 06-10-2023 CNPN Telephone (INTMWS) STEVEN KOENIG ([id number]) 1955 F Date Time Provider Department 06/10/23 [...] to be taking. Please call her at [phone]. Ulises Hermosillo MD 06/13/2023 1:59 AM Signed [...] 1 TABLET BY MOUTH EVERY DAY - suxtydhhily-jyafppvrc-d ilanter (TRELEGY ELLIPTA) 200-62.5-25 mcg inhalation powder [...] exertion [R06.09] 08/26/2021 Coronary artery disease involving confederated coos tolbert*09/27/2021 Lung nodule [R91.1] 08/31/2022 History of hemoptysis [Z87.898] 11/20/2022 Encounter Status:Closed by IRENA CANTOR LPN on 06/13/23 [facility] ([id number]) 1955 F Date Time Provider Department 05/10/23 ULISES HERMOSILLO INTWS During your visit today, we recorded the following information about you: Christina Franco RN 05/10/2023 1:00 PM Signed Patient calling and asking about lab results as well as x ray results to back. Please review and advise, AAMIR Diego APRN.SERVICE DELIVERY DIRECTOR 05/10/2023 1:12 PM Signed Lipids are not [...] Will try cholesterol med uses [facility] in [place]. Please assist in scheduling with physical therapy and pain management. Allergies As of Date: 05/10/2023 (No Known Allergies) Date Reviewed: 05/09/2023 Reviewed by: Mely Griffin PA-C - Fully Assessed Reason for Visit: Results [95] Primary Visit Diagnosis:Radiculopathy , lumbar region [M54.16] Other Visit Diagnosis:Chronic midline low back pain with sciatica, sciatica laterality unspecified [M54.40, G89.29] Order(s):CONSULT TO PAIN MGT [394987] Order #: [id number]: 1 FUTURE rosuvastatin (CRESTOR) 5 mg tabletTake 1 tablet by mouth daily at bedtime.Disp: 30 tabletRfl: 2 CONSULT TO PHYSICAL THERAPY [9032] Order #: [id number]: 1 FUTURE Prescriptions as of 05/13/2023 - rosuvastatin (CRESTOR) 5 mg tablet Take 1 tablet by mouth daily at bedtime. - isosorbide mononitrate ER (IMDUR) 30 mg 24 hr tablet TAKE 1 TABLET BY MOUTH EVERY DAY - traZODone (DESYREL) 100 mg tablet Take 2 tablets by mouth daily at bedtime. - aitfneevxgy-jbjzzqtii-s ilanter (TRELEGY ELLIPTA) 200-62.5-25 mcg inhalation powder [...] exertion [R06.09] 08/26/2021 Coronary artery disease involving confederated coos tolbert*09/27/2021 Lung nodule [R91.1] 08/31/2022 History of hemoptysis [Z87.898] 11/20/2022 Prescriptions ordered this encounter Disp Refills Start End ROSUVASTATIN 5 MG TABLET 30 t* 2 05/13/2023 Route: ORAL Sig: Take 1 tablet by mouth daily at bedtime. Encounter Status:Closed by CHRISTINA FRANCO on 05/13/23 [facility] XR Lumbar spine 3 Viewson IMPRESSION: Lumbar spine degenerative changes with L4-5 disc space narrowing. Inspector Plug Seam: SRAVANI Transcribe Date/Time: May 10 2023 11:59A Dictated by : KARMEN MOSLEY MD This examination was interpreted and the report reviewed and electronically signed by: KARMEN MOSLEY MD on May 10 2023 12:02PM [facility] DIVISION OF RADIOLOGY * * *Final Report* [...] spine are presented. FINDINGS: There are five dmc-isk-gontfxj lumbar vertebrae. No fracture or subluxations are [...] spine are presented. FINDINGS: There are five tce-uec-dcjcxro lumbar vertebrae. No fracture or subluxations are noted. Right-sided curvature/dextroscolios is is noted. There is L4-5 disc space narrowing. There is mild to moderate osteophyte formation. Others: There are vascular calcifications. A right-sided iliac vascular stent is noted. IMPRESSION IMPRESSION: Lumbar spine degenerative changes with L4-5 disc space narrowing. Inspector Plug Seam: SRAVANI Transcribe Date/Time: May 10 2023 11:59A Dictated by : KARMEN MOSLEY MD This examination was interpreted and the report reviewed and electronically signed by: KARMEN MOSLEY MD on May 10 2023 12:02PM [facility] XR Lumbar spine 3 ViewsOrder ed By: [facility] Provider on 05-10-2023 [facility] CNOVon 05-09-2023 CNOV Office Visit (PULMWS ) STEVEN KOENIG ([id number]) 1955 F Date Time Provider Department 05/09/23 [...] 12/14/2015 Bipolar affective disorder, currently active ([facility]) 01/18/2016 Dr[facility] Chronic bronchitis ([facility]) 07/26/2016 Closed skull fracture ([facility]) 1994 [facility] Coronary artery disease DDD (degenerative disc disease), cervical Endometriosis 2007 Essential hypertension 12/14/2015 GERD (gastroesophageal reflux disease) 03/13/2019 History of colon polyps History of gastric ulcer 12/14/2015 HLD (hyperlipidemia) Injury of left facial nerve 1994 PAD (peripheral artery disease) ([facility]) 09/28/2019 Recurrent major depression in partial remission ([facility]) 12/14/2015 S/P drug eluting coronary stent placement 08/25/2021 LAD and Dg2 Spinal stenosis Allergies: No Known Allergies isosorbide mononitrate ER (IMDUR) 30 mg 24 hr tablet TAKE 1 TABLET BY MOUTH EVERY DAY traZODone (DESYREL) 100 mg tablet Take 2 tablets by mouth daily at bedtime. xnslyzzkght-gwmhjscll-j ilanter (TRELEGY ELLIPTA) 200-62.5-25 mcg inhalation powder [...] NERVE DECOMPRESSION (more content not included)... Normal [facility] CBC W Auto Differential pane l (Bld)on 05-08-2023 Basophils (Bld) [#/Vol] 0.08 10*3/uL <0.11 k/uL [facility] Basophils/100 WBC (Bld) 1.0 % [facility] Differential cell count method Nom (Bld) Auto [facility] Eosinophils (Bld) [#/Vol] 0.19 10*3/uL <0.46 k/uL [facility] Eosinophils/100 WBC (Bld) 2.3 % [facility] Erythrocyte distribution width (RBC) [Ratio] 15.4 % High 11.5 - 15.0 % [facility] Hematocrit (Bld) [Volume fraction] 46.9 % High 36.0 - 46.0 % [facility] Hemoglobin (Bld) [Mass/Vol] 14.6 g/dL 11.5 - 15.5 g/dL [facility] Immature granulocytes (Bld) [#/Vol] <0.10 k/uL [facility] Immature granulocytes/100 WBC (Bld) 0.2 % [facility] Lymphocytes (Bld) [#/Vol] 2.23 10*3/uL 1.00 - 4.00 k/uL [facility] Lymphocytes/100 WBC (Bld) 27.3 % [facility] MCH (RBC) [Entitic mass] 30.7 pg 26.0 - 34.0 pg [facility] MCHC (RBC) [Mass/Vol] 31.1 g/dL 30.5 - 36.0 g/dL [facility] MCV (RBC) [Entitic vol] 98.5 fL 80.0 - 100.0 fL [facility] Monocytes (Bld) [#/Vol] 0.71 10*3/uL <0.87 k/uL [facility] Monocytes/100 WBC (Bld) 8.7 % C [facility] Neutrophils (Bld) [#/Vol] 4.94 10*3/uL 1.45 - 7.50 k/uL [facility] Neutrophils/100 WBC (Bld) 60.5 % [facility] Nucleated RBC (Bld) [#/Vol] <0.01 k/uL [facility] Nucleated RBC/100 WBC (Bld) [Ratio] 0.0 /100 WBC [facility] Platelet mean volume (Bld) [Entitic vol] 10.5 fL 9.0 - 12.7 fL [facility] Platelets (Bld) [#/Vol] 408 10*3/uL High 150 - 400 k/uL [facility] RBC (Bld) [#/Vol] 4.76 10*6/uL 3.90 - 5.2 0 m/uL [facility] WBC (Bld) [#/Vol] 8.17 10*3/uL 3.70 - 11.00 k/uL [facility] Basophils (Bld) [#/Vol] 0.08 10*3/uL Normal <0.11 [facility] Comment on above: Order Comment: Speci men Type: BLOOD SPECIMENOrdering Facility: [facility] Address: [address] [address] Performed By: #### 5 7021-8 ####[facility] LABCLIA [id number] [address] [place] Basophils/100 WBC (Bld) 1.0 % Normal [facility] Comment on above: Order Comment: Speci men Type: BLOOD SPECIMENOrdering Facility: [facility] Address: [address] [place] [address] Performed By: #### 5 7021-8 ####[facility] LABCLIA [id number] [place] [address] [place] Differential cell count method Nom (Bld) Auto Normal [facility] Comment on above: Order Comment: Speci men Type: BLOOD SPECIMENOrdering Facility: [facility] Address: [address] Performed By: #### 5 7021-8 ####[facility] LABCLIA [id number] [place] [address] [place] Eosinophils (Bld) [#/Vol] 0.19 10*3/uL Normal <0.46 [facility] Comment on above: Order Comment: Speci men Type: BLOOD SPECIMENOrdering Facility: [facility] Address: [address] [address] Performed By: #### 5 7021-8 ####[facility] LABCLIA [id number] [place] [address] [place] Eosinophils/100 WBC (Bld) 2.3 % Normal [facility] Comment on above: Order Comment: Speci men Type: BLOOD SPECIMENOrdering Facility: [facility] Address: [address] Performed By: #### 5 7021-8 ####[facility] LABCLIA [id number] [place] [address] [place] Erythrocyte distribution width (RBC) [Ratio] 15.4 % High 11.5-15.0 [facility] Comment on above: Order Comment: Speci men Type: BLOOD SPECIMENOrdering Facility: [facility] Address: [address] Performed By: #### 5 7021-8 ####[facility] LABCLIA [id number] [place] [address] [place] Hematocrit (Bld) [Volume fraction] 46.9 % High 36.0-46.0 [facility] Comment on above: Order Comment: Speci men Type: BLOOD SPECIMENOrdering Facility: [facility] Address: [address] [place], [place] [address] Performed By: #### 5 7021-8 ####[facility] LABCLIA [id number] [place] [address] [place] Hemoglobin (Bld) [Mass/Vol] 14.6 g/dL Normal 11.5-15.5 [facility] Comment on above: Order Comment: Speci men Type: BLOOD SPECIMENOrdering Facility: [facility] Address: [address] [place] [address] Performed By: #### 5 7021-8 ####[facility] LABCLIA [id number] [place] [address] [place] Immature granulocytes (Bld) [#/Vol] 10*3/uL Normal <0.10 [facility] Comment on above: Order Comment: Speci men Type: BLOOD SPECIMENOrdering Facility: [facility] Address: [address] [place] [address] Performed By: #### 5 7021-8 ####[facility] LABCLIA [id number] [place] [address] [place] Immature granulocytes/100 WBC (Bld) 0.2 % Normal [facility] Comment on above: Order Comment: Speci men Type: BLOOD SPECIMENOrdering Facility: [facility] Address: [address] [place] [address] Performed By: #### 5 7021-8 ####[facility] LABCLIA [id number] [place] [address] [place] Lymphocytes (Bld) [#/Vol] 2.23 10*3/uL Normal 1.00-4.00 [facility] Comment on above: Order Comment: Speci men Type: BLOOD SPECIMENOrdering Facility: [facility] Address: [address] [place], [place] [address] Performed By: #### 5 7021-8 ####[facility] LABCLIA [id number] [place] [address] [place] Lymphocytes/100 WBC (Bld) 27.3 % Normal [facility] Comment on above: Order Comment: Speci men Type: BLOOD SPECIMENOrdering Facility: [facility] Address: [address] Performed By: #### 5 7021-8 ####[facility] [id number] [address] [place] MCH (RBC) [Entitic mass] 30.7 pg Normal 26.0-34.0 [facility] Comment on above: Order Comment: Speci men Type: BLOOD SPECIMENOrdering Facility: [facility] Address: [address] Performed By: #### 5 7021-8 ####[facility] [id number] [address] [place] MCHC (RBC) [Mass/Vol] 31.1 g/dL Normal 30.5-36.0 [facility] Comment on above: Order Comment: Speci men Type: BLOOD SPECIMENOrdering Facility: [facility] Address: [address] Performed By: #### 5 7021-8 ####[facility] [id number] [address] [place] MCV (RBC) [Entitic vol] 98.5 fL Normal 80.0-100.0 C [facility] Comment on above: Order Comment: Speci men Type: BLOOD SPECIMENOrdering Facility: [facility] Address: [address] Performed By: #### 5 7021-8 ####[facility] [id number] [place] [address] [place] Monocytes (Bld) [#/Vol] 0.71 10*3/uL Normal <0.87 [facility] Comment on above: Order Comment: Speci men Type: BLOOD SPECIMENOrdering Facility: [facility] Address: [address] [place], [place] [address] Performed By: #### 5 7021-8 ####[facility]CLIA [id number] [place] [address] [place] Monocytes/100 WBC (Bld) 8.7 % Normal [facility] Comment on above: Order Comment: Speci men Type: BLOOD SPECIMENOrdering Facility: [facility] Address: [address] [place], [place] [address] Performed By: #### 5 7021-8 ####[facility] LABCLIA [id number] [place] [address] [place] Neutrophils (Bld) [#/Vol] 4.94 10*3/uL Normal 1.45-7.50 [facility] Comment on above: Order Comment: Speci men Type: BLOOD SPECIMENOrdering Facility: [facility] Address: [address] [place], [place] [address] Performed By: #### 5 7021-8 ####[facility]CL[facility] [id number] [place] [address] [place] Neutrophils/100 WBC (Bld) 60.5 % Normal [facility] Comment on above: Order Comment: Speci men Type: BLOOD SPECIMENOrdering Facility: [facility] Address: [address] [place], [place] [address] Performed By: #### 5 7021-8 ####[facility]CL[facility] [id number] [place] [address] [place] Nucleated RBC (Bld) [#/Vol] 10*3/uL Normal <0.01 [facility] Comment on above: Order Comment: Speci men Type: BLOOD SPECIMENOrdering Facility: [facility] Address: [address] [place], [place] [address] Performed By: #### 5 7021-8 ####[facility] [id number] [place] [address] [place] Nucleated RBC/100 WBC (Bld) [Ratio] 0.0 /100 WBC Normal [facility] Comment on above: Order Comment: Speci men Type: BLOOD SPECIMENOrdering Facility: [facility] Address: [address] [place], [place] [address] Performed By: #### 5 7021-8 ####[facility]CL[facility] [id number] [place] [address] [place] Platelet mean volume (Bld) [Entitic vol] 10.5 fL Normal 9.0-12.7 [facility] Comment on above: Order Comment: Speci men Type: BLOOD SPECIMENOrdering Facility: [facility] Address: [address] [place], [place] [address] Performed By: #### 5 7021-8 ####[facility]CL[facility] [id number] [place] [address] [place] Platelets (Bld) [#/Vol] 408 10*3/uL High 150-400 [facility] Comment on above: Order Comment: Speci men Type: BLOOD SPECIMENOrdering Facility: [facility] Address: [address] [place], [place] [address] Performed By: #### 5 7021-8 ####[facility] [id number] [place] [address] [place] RBC (Bld) [#/Vol] 4.76 10*6/uL Normal 3.90-5.20 [facility] Comment on above: Order Comment: Speci men Type: BLOOD SPECIMENOrdering Facility: [facility] Address: [address] [place], [place] [address] Performed By: #### 5 7021-8 ####[facility] [id number] [place] [address] [place] WBC (Bld) [#/Vol] 8.17 10*3/uL Normal 3.70-11.00 [facility] Comment on above: Order Comment: Speci men Type: BLOOD SPECIMENOrdering Facility: [facility] Address: [address] [place] [address] Performed By: #### 5 7021-8 ####[facility] LABCLIA [id number] [address] [place] [id number] [address] [place] [facility] CNOVon 05-08-2023 CNOV Office Visit (INTMWS ) STEVEN KOENIG ([id number]) 1955 F Date Time Provider Department 05/08/23 12:20 PM OLDEROLY INTMWS During your visit today, we recorded the following information about you: Pulse Respiration Blood pressure Weight 90/minute 20/minute 134/88 56.2 kg 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 Angie Jones, [facility] Chronic bronchitis ([facility]) 07/26/2016 Closed skull fracture ([facility]) 1994 [facility], [facility] Coronary artery disease DDD (degenerative disc disease), cervical Endometriosis 2007 Essential hypertension 12/14/2015 GERD (gastroesophageal reflux disease) 03/13/2019 History of colon polyps History of gastric ulcer 12/14/2015 HLD (hyperlipidemia) Injury of left facial nerve 1994 PAD (peripheral artery disease) ([facility]) 09/28/2019 Recurrent major depression in partial remission ([facility]) 12/14/2015 S/P drug eluting coronary [...] TOTAL FACIAL NERVE DECOMPRESSION AND/REPAIR Left 1989 [facility] ALLERGIES Patient has no known [...] 2 tablets by mouth daily at bedtime. hzfealekvoc-moqccuchz-n ilanter (TRELEGY ELLIPTA) 200-62.5-25 mcg inhalation powder [...] daily. Ap (more content not included)... Normal [facility] Comprehensive metabolic 2000 panelon 05-08-2023 Albumin [Mass/Vol] 4.2 g/dL Normal 3.9-4.9 [facility] Comment on above: Order Comment: Speci men Type: BLOOD SPECIMENOrdering Facility: [facility] Address: [address] [id number] Performed By: #### 2 4323-8, LIPNF ####[facility] [id number] [place] [address] [place] ALP [Catalytic activity/Vol] 86 U/L Normal 34-123 [facility] Comment on above: Order Comment: Speci men Type: BLOOD SPECIMENOrdering Facility: [facility] Address: [address] Performed By: #### 2 4323-8, LIPNF ####[facility] [id number] [address] [place] ALT [Catalytic activity/Vol] 12 U/L Normal 7-38 [facility] Comment on above: Order Comment: Speci men Type: BLOOD SPECIMENOrdering Facility: [facility] Address: [address] Performed By: #### 2 4323-8, LIPNF ####[facility] [id number] [place] [address] [place] Anion gap [Moles/Vol] 13 mmol/L Normal 9-18 [facility] Comment on above: Order Comment: Speci men Type: BLOOD SPECIMENOrdering Facility: [facility] Address: [address] Performed By: #### 2 4323-8, LIPNF ####[facility] [id number] [address] [place] AST [Catalytic activity/Vol] 15 U/L Normal 13-35 [facility] Comment on above: Order Comment: Speci men Type: BLOOD SPECIMENOrdering Facility: [facility] Address: [address] [place] [address] Performed By: #### 2 4323-8, LIPNF ####[facility] [id number] [place] [address] [place] Bilirubin [Mass/Vol] mg/dL Low 0.2-1.3 [facility] Comment on above: Order Comment: Speci men Type: BLOOD SPECIMENOrdering Facility: [facility] Address: [address] Performed By: #### 2 4323-8, LIPNF ####[facility] [id number] [place] [address] [place] Calcium [Mass/Vol] 9.3 mg/dL Normal 8.5-10.2 [facility] Comment on above: Order Comment: Speci men Type: BLOOD SPECIMENOrdering Facility: [facility] Address: [address] [place], [place] [address] Performed By: #### 2 4323-8, LIPNF ####[facility] [id number] [place] [address] [place] Chloride [Moles/Vol] 102 mmol/L Normal 97-105 [facility] Comment on above: Order Comment: Speci men Type: BLOOD SPECIMENOrdering Facility: [facility] Address: [address] [place] [address] Performed By: #### 2 4323-8, LIPNF ####[facility] [id number] [place] [address] [place] CO2 [Moles/Vol] 22 mmol/L Normal 22-30 [facility] Comment on above: Order Comment: Speci men Type: BLOOD SPECIMENOrdering Facility: [facility] Address: [address] [place], [place] [address] Performed By: #### 2 4323-8, LIPNF ####[facility] [id number] [place] [address] [place] Creatinine [Mass/Vol] 0.97 mg/dL High 0.58-0.96 [facility] Comment on above: Order Comment: Speci men Type: BLOOD SPECIMENOrdering Facility: [facility] Address: [address] [place] [address] Performed By: #### 2 4323-8, LIPNF ####[facility] [id number] [place] [address] [place] ESTIMATED GLOMERULAR FILTRATION RATE 64 mL/min/1.73m??? Normal >=60 [facility] Comment on above: Order Comment: [place] Type: BLOOD SPECIMENOrdering Facility: [facility] Address: [address] [place] [address] Result Comment: Johnna mated Glomerular Filtration Rate [...] GFR. Performed By: #### 2 4323-8, LIPSEGUNDO ####[facility] [id number] [place] [address] [place] Glucose [Mass/Vol] 76 mg/dL Normal 74-99 [facility] Comment on above: Order Comment: [place] Type: BLOOD SPECIMENOrdering Facility: [facility] Address: [address] [place] [address] Result Comment: The [place] Diabetes Association (ADA) provides guidance for cutoff [...] Standards of Medical Care in Diabetes 2016, [employer] Diabetes Association. Diabetes Care. 2016.39(Suppl 1). Performed By: #### 2 4323-8, LIPSEGUNDO ####[facility] [id number] [place] [address] [place] Potassium [Moles/Vol] 5.3 mmol/L High 3.7-5.1 [facility] Comment on above: Order Comment: [place] Type: BLOOD SPECIMENOrdering Facility: [facility] Address: [address] Performed By: #### 2 4323-8, LIPNF ####[facility] [id number] [place] [address] [place] Protein [Mass/Vol] 6.9 g/dL Normal 6.3-8.0 [facility] Comment on above: Order Comment: Speci men Type: BLOOD SPECIMENOrdering Facility: [facility] Address: [address] Performed By: #### 2 4323-8, LIPNF ####[facility] [id number] [place] [address] [place] Sodium [Moles/Vol] 137 mmol/L Normal 136-144 [facility] Comment on above: Order Comment: Speci men Type: BLOOD SPECIMENOrdering Facility: [facility] Address: [address] [place], [place] [address] Performed By: #### 2 4323-8, LIPNF ####[facility] [id number] [place] [address] [place] Urea nitrogen [Mass/Vol] 13 mg/dL Normal 7-21 [facility] Comment on above: Order Comment: Speci men Type: BLOOD SPECIMENOrdering Facility: [facility] Address: [address] Performed By: #### 2 4323-8, LIPNF ####[facility] [id number] [place] [address] [place] LIPID PANEL, NONFASTINGon Cholesterol [Mass/Vol] 232 mg/dL High <200 [facility] Comment on above: Order Comment: Speci men Type: BLOOD SPECIMENOrdering Facility: [facility] Address: [address] [place] [address] Result Comment: <200 mg/dL, Desirable 200-239 mg/dL, Borderline high >239 mg/dL, High Performed By: #### 2 4323-8, LIPNF ####[facility] [id number] [address] HDL CHOLESTEROL, NF 67 mg/dL Normal >39 [facility] Comment on above: Order Comment: Speci men Type: BLOOD SPECIMENOrdering Facility: [facility] Address: [address] [place] [address] Result Comment: 40-5 9 mg/dL, Acceptable >59 mg/dL, High: Negative risk factor for coronary heart disease <40 mg/dL, Low: Positive risk factor for coronary heart disease Performed By: #### 2 4323-8, LIPNF ####[facility] [id number] [address] LDL CHOLESTEROL, NF 143 mg/dL High <100 [facility] Comment on above: Order Comment: [facility] Type: BLOOD SPECIMENOrdering Facility: [facility] Address: [address] [place] [address] Result Comment: <100 mg/dL, Optimal 100-129 mg/dL, Near optimal/above optimal 130-159 mg/dL, Borderline high 160-189 mg/dL, High >189 mg/dL, Very high Secondary prevention optimal LDL Cholesterol levels are recommended to be < 70 mg/dL Performed By: #### 2 4323-8, LIPNF ####[facility] [id number] [address] LDL/HDL RATIO, NF 2.13 mg/dL Normal <2.54 [facility] Comment on above: Order Comment: Speci men Type: BLOOD SPECIMENOrdering Facility: [facility] Address: [address] [place] [address] Result Comment: Refe rence: 1. National Cholesterol Education Program ATP III Guideline At-A-Glance Quick Desk Reference: National Heart, Lung, and Blood [place]. National Institutes of Health. 2001: NIH Publication No. 01-3305. 2. An International Atherosclerosis Society position paper: global recommendations for the management of dyslipidemia: executive summary, Atherosclerosis. 2014: 232(2):410-413. Performed By: #### 2 4323-8, LIPNF ####[facility] [id number] [address] OF [facility] NON HDL CHOL, NF 165 mg/dL High <130 [facility] Comment on above: Order Comment: Speci men Type: BLOOD SPECIMENOrdering Facility: [facility] Address: [address] [place] [address] Result Comment: <130 mg/dL, Optimal 130-159 mg/dL, Near optimal/above optimal 160-189 mg/dL, Borderline high 190-219 mg/dL, High >219 mg/dL, Very high Secondary prevention optimal non HDL Cholesterol levels are recommended to be <100 mg/dL Performed By: #### 2 4323-8, LIPNF ####[facility] [id number] [address] OF [facility] T CHOL/HDL RATIO NF 3.46 mg/dL Normal <5.10 [facility] Comment on above: Order Comment: Speci men Type: BLOOD SPECIMENOrdering Facility: [facility] Address: [address] [place] [address] Performed By: #### 2 4323-8, LIPNF ####[facility] [id number] [address] OF [place] TRIGLYCERIDES, NF 108 mg/dL Normal <150 [facility] Comment on above: Order Comment: Speci men Type: BLOOD SPECIMENOrdering Facility: [facility] Address: [address] [place] [address] Result Comment: <150 mg/dL, Normal 150-199 mg/dL, Borderline high 200-499 mg/dL, High >499 mg/dL, Very high Performed By: #### 2 4323-8, LIPNF ####[facility] [id number] [address] STATES OF [facility] VLDL CHOLESTEROL, NF 22 mg/dL Normal <[address] [facility] Comment on above: Order Comment: Speci men Type: BLOOD SPECIMENOrdering Facility: [facility] Address: [address] [place] [id number] Performed By: #### 2 4323-8, LIPNF ####[facility] [id number] [address] [place] XR LUMBAR 3V AP/LAT/L5-S1on [...] spine are presented. FINDINGS: There are five vks-fnr-bbrrffr lumbar vertebrae. No fracture or subluxations are noted. Right-sided curvature/dextroscolios is is noted. There is L4-5 disc space narrowing. There is mild to moderate osteophyte formation. Others: There are vascular calcifications. A right-sided iliac vascular stent is noted. IMPRESSION: Lumbar spine degenerative changes with L4-5 disc space narrowing. Inspector Plug Seam: PSCB Transcribe Date/Time: May 10 2023 11:59A Dictated by : KARMEN MOSLEY MD This examination was interpreted and the report reviewed and electronically signed by: KARMEN MOSLEY MD on May 10 2023 12:02PM EST [id number] Normal [facility] XR Lumbar spine 3 [facility] Radiology Study observation (narrative) [facility] CNOVon 04-02-2023 CNOV Office Visit (VASSWS ) RUBI KOENIGELE Fidencio ([id number]) 1955 F Date Time Provider Department 04/02/23 [...] Primary Visit Diagnosis:PAD (peripheral artery disease) ([facility]) [I73.9] Order(s):PVR [facility] [[id number]] Order #: [id number] FUTURE Prescriptions as of 04/02/2023 - isosorbide mononitrate ER (IMDUR) 30 mg 24 hr tablet TAKE 1 TABLET BY MOUTH EVERY DAY - predniSONE (DELTASONE) 10 mg tablet TAKE TWO DAILY FOR 5 DAYS THEN ONE DAILY FOR 10 DAYS - traZODone (DESYREL) 100 mg tablet Take 2 tablets by mouth daily at bedtime. - pvrchdpmsax-ukonefqku-j ilanter (TRELEGY ELLIPTA) 200-62.5-25 mcg inhalation powder [...] exertion [R06.09] 08/26/2021 Coronary artery disease involving [place] tolbert*09/27/2021 Lung nodule [R91.1] 08/31/2022 History of hemoptysis [Z87.898] 11/20/2022 Encounter Status:Closed by DORON SELF on 04/02/23 Normal [facility] PVR ANK/LYONS/TOE [facility] on 04-02-2023 PVR ANK/LYONS/TOE [facility] Non-Invasive Vascular [facility] Lower Extremity Arterial Physiology Study Bilateral/Complete [...] disease at rest. Technologist: Becky Nazario RVT, RDAK Ordering physician: DORON SELF Interpreting physician: MALINDA Vitale DO Final [employer] [facility] Image : [id number] See Link below for Image Normal [facility] Basic Metabolic Panel Reflex Mgon 01-07-2023 Anion gap [Moles/Vol] 5 mmol/L Low 7-16 [facility] Calcium [Mass/Vol] 8.6 mg/dL Normal 8.6-10.2 [facility] Chloride [Moles/Vol] 95 mmol/L Low 98-107 [facility] CO2 [Moles/Vol] 32 mmol/L High 22-29 [facility] Creatinine [Mass/Vol] 0.8 mg/dL Normal 0.5-1.0 [facility] GFR Calculated >60 Normal >=60 [facility] Comment on above: Result Comment: Jimbo [...] secretion. Glucose [Mass/Vol] 143 mg/dL High 74-99 [facility] Magnesium [Moles/Vol] 6.2 mmol/L High 3.5-5.0 [facility] Comment on above: Result Comment: Spec imen is moderately Hemolyzed. Result may be artificially increased. Sodium [Moles/Vol] 132 mmol/L Normal 132-146 [facility] Urea nitrogen [Mass/Vol] 26 mg/dL High 6-23 [facility] Basic Metabolic Panel w/ Ref wu to MGon 01-07-2023 Anion gap [Moles/Vol] 5 mmol/L Low 7 - 16 mmol/L [facility] Calcium [Mass/Vol] 8.6 mg/dL 8.6 - 10. 2 mg/dL [facility] Chloride [Moles/Vol] 95 mmol/L Low 98 - 10 7 mmol/L [employer] CO2 [Moles/Vol] 32 mmol/L High 22 - 29 mmol/L [facility] [employer] Creatinine [Mass/Vol] 0.8 mg/dL 0.5 - 1.0 mg/dL [facility] GFR/1.73 sq M.predicted MDRD (S/P/Bld) [Vol rate/Area] mL/min/1.73 60 - PINF mL/min/1.73 [facility] Comment on above: Pediatric calculator [...] 143 mg/dL High 74 - 99 mg/dL [facility] Interpretation and review of laboratory results Abnormal [facility] Potassium [Moles/Vol] 6.2 mmol/L High 3.5 - 5.0 mmol/L [facility] Comment on above: Specimen is moderate ly Hemolyzed. Result may be artificially increased. Sodium [Moles/Vol] 132 mmol/L 132 - 146 mmol/L [facility] Urea nitrogen (BldV) [Mass/Vol] 26 mg/dL High 6 - 23 mg/dL [facility] CBC With Platelet and Differ entialon 01-07-2023 Abs Imm Granulocytes 0.06 E9/L Normal [facility] Absolute Basophils 0.01 E9/L Normal 0.00-0.20 [facility] Absolute Eosinophils 0.01 E9/L Low 0.05-0.50 [facility] Absolute Lymphocytes 0.61 E9/L Low 1.50-4.00 [facility] Absolute Monocytes 0.29 E9/L Normal 0.10-0.95 [facility] Absolute Neutrophils 8.76 E9/L High 1.80-7.30 [facility] Basophils/100 WBC (Bld) 0.1 % Normal 0.0-2.0 [facility] Eosinophils/100 WBC (Bld) 0.1 % Normal 0.0-6.0 [facility] Hematocrit (Bld) [Volume fraction] 42.8 % Normal 34.0-48.0 [facility] Hemoglobin (Bld) [Mass/Vol] 13.5 g/dL Normal 11.5-15.5 [facility] Imm Granulocytes 0.6 % Normal 0.0-5.0 [facility] Lymphocytes/100 WBC (Bld) 6.3 % Low 20.0-42.0 [facility] MCH (RBC) [Entitic mass] 31.3 pg Normal 26.0-35.0 [facility] MCHC 31.5 % Low 32.0-34.5 [facility] MCV (RBC) [Entitic vol] 99.1 fL Normal 80.0-99.9 [facility] Monocytes/100 WBC (Bld) 3.0 % Normal 2.0-12.0 [facility] Neutrophils/100 WBC (Bld) 89.9 % High 43.0-80.0 [facility] Platelet Count 421 E9/L Normal 130-450 [facility] Platelet mean volume (Bld) [Entitic vol] 9.8 fL Normal 7.0-12.0 [facility] RBC 4.32 E12/L Normal 3.50-5.50 [facility] RDW 15.1 fL High 11.5-15.0 [facility] WBC 9.7 E9/L Normal 4.5-11.5 [facility] CBC with Auto Differentialon 01-07-2023 Basophils (Bld) [#/Vol] 0.01 10*3/uL [employer] Basophils/100 WBC (Bld) 0.1 % 0.0 - 2.0 % [facility] Eosinophils Absolute 0.01 Low [facility] Eosinophils/100 WBC (Bld) 0.1 % 0.0 - 6.0 % [employer]ENTERPOPVOX [facility] HOSPITALSplinter.me [facility] Hematocrit (Bld) [Volume fraction] 42.8 % 34.0 - 48.0 % [facility] Hemoglobin (Bld) [Mass/Vol] 13.5 g/dL 11.5 - 15.5 g/dL [facility] Immature Granulocytes # 0.06 E9/L [facility] Immature granulocytes/100 WBC (Bld) 0.6 % 0.0 - 5.0 % [facility] Interpretation and review of laboratory results Abnormal [facility] Lymphocytes Absolute 0.61 Low [facility] Lymphocytes/100 WBC (Bld) 6.3 % Low 20.0 - 42.0 % [facility] MCH (RBC) [Entitic mass] 31.3 pg 26.0 - 35.0 pg [facility] MCHC (RBC) [Mass/Vol] 31.5 % Low 32.0 - 34.5 % [facility] MCV (RBC) [Entitic vol] 99.1 fL 80.0 - 99.9 fL [facility] Monocytes Absolute 0.29 [facility] Monocytes/100 WBC (Bld) 3.0 % 2.0 - 12.0 % [facility] Neutrophils Absolute 8.76 High [facility] Neutrophils/100 WBC (Bld) 89.9 % High 43.0 - 80.0 % [facility] Platelet distribution width (Bld) [Ratio] 15.1 fL High 11.5 - 15.0 fL [facility] Platelet mean volume (Bld) [Entitic vol] 9.8 fL 7.0 - 12.0 fL [facility] Platelets (Bld) [#/Vol] 421 10*3/uL [facility] RBC (Bld) [#/Vol] 4.32 10*6/uL [facility] WBC (Bld) [#/Vol] 9.7 10*3/uL [facility] Glucose Glucometer (BldC) [M ass/Vol]Ordered By: Dr. Teague on 01-07-2023 Glucose [Mass/Vol] 88 mg/dL 74-106 [facility] Comment on above: MANAGEMENT OF PATIEN T CARE PER NURSING PROTOCOL High Sensitivity Troponin To n 01-07-2023 High Sensitivity Troponin T 14 ng/L High 0-9 [facility] Comment on above: Result Comment: High Sensitivity Troponin values cannot be compared with other Troponin methodologies. Patients with high levels of Biotin oral intake (i.e. >5 mg/day) may have falsely decreased Troponin levels. Samples collected within 8 hours of biotin intake may require additional information for diagnosis. Troponinon 01-07-2023 Interpretation and review of laboratory results Abnormal [facility] Troponin, High Sensitivity 14 ng/L High 0 - 9 ng/L [facility] Comment on above: High Sensitivity Tro ponin values cannot be compared with other Troponin methodologies. Patients with high levels of Biotin oral intake (i.e. >5 mg/day) may have falsely decreased Troponin levels. Samples collected within 8 hours of biotin intake may require additional information for diagnosis. [facility] Bacteria identified Respirat ory culture Nom (Unsp spec)Ordered By: Dr. Luque on 01-06-2023 Respiratory Culture Streptococcus pneumoniae [facility] Absolute lymphocyte countOrd ered By: Dr. Luque on 01-03-2023 Lymphocytes Auto (Unsp spec) [#/Vol] 0.36 10*3/uL 0.83-4.51 [facility] Basophil percentageOrdered B y: Dr. Luque on 01-03-2023 Basophils/100 WBC (Bld) 0.6 % 0-1 [facility] Bilirubin [Mass/Vol] 0.20 mg/dL 0.20-1.00 [facility] Comment on above: For patients on eltr ombopag therapy, use of Dimension [place] TBIL is not recommended. Chloride [Moles/Vol] 112 mmol/L 98-107 [facility] Cholesterol [Mass/Vol] 225 mg/dL <200 [facility] Comment on above: <200 mg/dL Desirable 200-240 mg/dL Borderline >240 mg/dL High Risk Eosinophils/100 WBC (Bld) 0.0 % 0-5 [facility] Glucose [Mass/Vol] 236 mg/dL 74-106 [facility] Comment on above: Glucose result great er than or equal to 200 mg/dLsuggests DIABETES MELLITUS per A.D.A. criteria. Neutrophils (Bld) [#/Vol] 6.2 10*3/uL 2.0-7.7 [facility] Neutrophils/100 WBC (Bld) 92.4 % 47-70 [facility] Potassium [Moles/Vol] 4.3 mmol/L 3.5-5.1 [facility] Protein [Mass/Vol] 6.5 g/dL 6.4-8.2 [facility] Sodium [Moles/Vol] 141 mmol/L 136-145 [facility] Triglyceride [Mass/Vol] 63 mg/dL <199 [facility] Comment on above: The drugs N-Acetylcy steine and Metamizole may falsely depress this assay.Serum Triglycerides Reference Interval Normal <150 mg/dL Borderline high 150 - 199 mg/dL High 200 - 499 mg/dL Very High > or = 500 mg/dL WBC (Bld) [#/Vol] 6.7 10*3/uL 4.4-11.0 [facility] Blood erythrocytes count (nu mber/volume)Ordered By: Dr. Luque on 01-03-2023 RBC (Bld) [#/Vol] 4.25 10*6/uL 4.2-5.4 [facility] Blood hemoglobin measurement (mass/volume)Ordered By: Dr. Luque on 01-03-2023 Hemoglobin (Bld) [Mass/Vol] 13.4 g/dL 12.0-15.0 [facility] Blood lymphocytes/100 leukoc ytesOrdered By: Dr. Luque on 01-03-2023 Lymphocytes/100 WBC (Bld) 5.4 % 19-41 [facility] Blood manual differential co mment interpretation (narrative result)Ordered By: Dr. Luque on 01-03-2023 Manual differential comment Marquez (Bld) [Interp] SCANNED [facility] Blood monocytes/100 leukocyt esOrdered By: Dr. Luque on 01-03-2023 Monocytes/100 WBC (Bld) 0.9 % 0-10 [facility] Blood platelet mean volumeOr dered By: Dr. Luque on 01-03-2023 Platelet mean volume (Bld) [Entitic vol] 9.4 fL 6.2-12.0 [facility] Determination of erythrocyte mean corpuscular volume (MCV)Ordered By: Dr. Luque on 01-03-2023 MCV (RBC) [Entitic vol] 99.1 fL 81-99 [facility] Gram stain for investigation of transfusion reactionOrdered By: Dr. Luque on 01-03-2023 Microscopic observation Gram stain Nom (Unsp spec) [facility] Hematocrit Auto (Bld) [Volum e fraction]Ordered By: Dr. Luque on 01-03-2023 Hematocrit (Bld) [Volume fraction] 42.1 % 37-47 [facility] - Chemistry and C hemistry - challengeOrdered By: Dr. Luque on 01-03-2023 ALP [Catalytic activity/Vol] 59 U/L 45-117 [facility] ALT [Catalytic activity/Vol] 19 U/L 13-56 [facility] CO2 [Moles/Vol] 25.0 mmol/L 21.0-32.0 [facility] Globulin (S) [Mass/Vol] 3.5 g/dL 2.2-4.2 [facility] Urea nitrogen/Creatinine [Mass ratio] 12.5 mg/mg 10-20 [facility] - Hematology and Cell countsOrdered By: Dr. Luque on 01-03-2023 Erythrocyte distribution width (RBC) [Entitic vol] 57.1 fL 35.1-43.9 [facility] Erythrocyte distribution width (RBC) [Ratio] 15.7 % 11.6-14.6 [facility] Immature granulocytes/100 WBC (Bld) 0.700 % 0.0-0.9 [facility] Comment on above: IG% - Immature Granu locytes (promyelocytes, myelocytes and metamyelocytes) > 1% indicates that a LEFT SHIFT is Present. MCH (RBC) [Entitic mass] 31.5 pg 27.0-32.0 [facility] Nucleated RBC/100 WBC (Bld) [Ratio] 0 % 0-5 [facility] MCHC Auto (RBC) [Mass/Vol]Or dered By: Dr. Luque on 01-03-2023 MCHC (RBC) [Mass/Vol] 31.8 g/dL 32-36 [facility] No Panel InformationOrdered By: Dr. Luque on 01-03-2023 Estimated Creatinine Clearance Calc 61.40 ml/min [facility] Estimated GFR (MDRD) Amer 92 mL/min >60 [facility] Comment on above: GFR Calc Estimated GFR (MDRD) Non-Af Amer 76 mL/min >60 [facility] Comment on above: Non- GFR Calc Troponin I High Sensitivity 17 pg/mL 3.0-54.0 [facility] Comment on above: Please Note: New Elsa t Units and Gender Specific Reference Ranges. For more information see Policy Stat Procedure [place] High Sensitivity Troponin (TNIH) and attachments. Platelets bldOrdered By: Dr. Luque on 01-03-2023 Platelets (Bld) [#/Vol] 416 10*3/uL 150-450 [facility] Serum or plasma albumin giovanni urement (mass/volume)Ordered By: Dr. Luque on 01-03-2023 Albumin [Mass/Vol] 3.0 g/dL 3.2-5.0 [facility] Serum or plasma albumin/glob ulin mass ratioOrdered By: Dr. Luque on 01-03-2023 Albumin/Globulin [Mass ratio] 0.9 {ratio} 0.9-2.4 [facility] Serum or plasma calcium giovanni urement (mass/volume)Ordered By: Dr. Luque on 01-03-2023 Calcium [Mass/Vol] 8.1 mg/dL 8.5-10.1 [facility] Serum or plasma cholesterol in HDL measurement (mass/volume)Ordered By: Dr. Luque on 01-03-2023 Cholesterol in HDL [Mass/Vol] 98 mg/dL >40 [facility] Comment on above: The drugs N-Acetylcy steine and Metamizole may falsely depress this assay. Reference Range HDL <40 mg/dL Low HDL Cholesterol HDL >or= 60 mg/dL High HDL Cholesterol Serum or plasma cholesterol in VLDL measurement (mass/volume)Ordered By: Dr. Luque on 01-03-2023 Cholesterol in VLDL [Mass/Vol] 13 mg/dL 5-40 [facility] Serum or plasma creatinine m easurement (mass/volume)Ordered By: Dr. Luque on 01-03-2023 Creatinine [Mass/Vol] 0.80 mg/dL 0.55-1.02 [facility] Comment on above: The validity of the calculated GFR & GFRAA in patients over 70 years has not been determined. Clinical correlation is essential. Serum or plasma low density lipoprotein (LDL) cholesterol measurement (mass/volume)Ordered By: Dr. Luque on 01-03-2023 Cholesterol in LDL [Mass/Vol] 114 mg/dL 0-130 [facility] Serum or plasma urea nitroge n measurement (mass/volume)Ordered By: Dr. Luque on 01-03-2023 Urea nitrogen [Mass/Vol] 10 mg/dL 7-18 [facility] Thin prep Papanicolaou smear with manual screeningOrdered By: Dr. Luque on 01-03-2023 Thin prep Papanicolaou smear with manual screening 14 U/L 15-37 [facility] Thin prep Papanicolaou smear with manual screening 4 5-15 [facility] Whole blood hemoglobin A1c/t otal hemoglobin ratio (mass fraction)Ordered By: Dr. Sauer on 01-03-2023 HbA1c (Bld) [Mass fraction] 5.5 % 3.8-5.6 [facility] Comment on above: Normal < 5.7 % Predi abetic 5.7 - 6.4 % Diabetic >or= 6.5 % Please note range changes. Absolute lymphocyte countOrd ered By: Dr. Koroma on 01-02-2023 Lymphocytes Auto (Unsp spec) [#/Vol] 2.67 10*3/uL 0.83-4.51 [facility] Basophil percentageOrdered B y: Dr. Luque on 01-02-2023 Basophil percentage 3.6 mg/dL 2.5-4.9 [facility] Basophil percentageOrdered B y: Dr. Koroma on 01-02-2023 Basophils/100 WBC (Bld) 1.3 % 0-1 [facility] Bilirubin [Mass/Vol] 0.10 mg/dL 0.20-1.00 [facility] Comment on above: For patients on eltr ombopag therapy, use of Dimension [place] TBIL is not recommended. Chloride [Moles/Vol] 109 mmol/L 98-107 [facility] Eosinophils/100 WBC (Bld) 1.4 % 0-5 [facility] Glucose [Mass/Vol] 76 mg/dL 74-106 [facility] Neutrophils (Bld) [#/Vol] 3.6 10*3/uL 2.0-7.7 [facility] Neutrophils/100 WBC (Bld) 50.1 % 47-70 [facility] Potassium [Moles/Vol] 3.6 mmol/L 3.5-5.1 [facility] Protein [Mass/Vol] 7.3 g/dL 6.4-8.2 [facility] Sodium [Moles/Vol] 143 mmol/L 136-145 [facility] WBC (Bld) [#/Vol] 7.2 10*3/uL 4.4-11.0 [facility] Basophil percentage 0 SEEN /hpf 0-5 [facility] Bilirubin Test strip Ql (U)O rdered By: Dr. Koroma on 01-02-2023 Bilirubin Ql (U) Negative Negative [facility] Blood erythrocytes count (nu mber/volume)Ordered By: Dr. Koroma on 01-02-2023 RBC (Bld) [#/Vol] 4.42 10*6/uL 4.2-5.4 [facility] Blood hemoglobin measurement (mass/volume)Ordered By: Dr. Koroma on 01-02-2023 Hemoglobin (Bld) [Mass/Vol] 14.0 g/dL 12.0-15.0 [facility] Blood lymphocytes/100 leukoc ytesOrdered By: Dr. Koroma on 01-02-2023 Lymphocytes/100 WBC (Bld) 37.2 % 19-41 [facility] Blood monocytes/100 leukocyt esOrdered By: Dr. Koroma on 01-02-2023 Monocytes/100 WBC (Bld) 9.6 % 0-10 [facility] Blood platelet mean volumeOr dered By: Dr. Koroma on 01-02-2023 Platelet mean volume (Bld) [Entitic vol] 9.8 fL 6.2-12.0 [facility] Determination of erythrocyte mean corpuscular volume (MCV)Ordered By: Dr. Koroma on 01-02-2023 MCV (RBC) [Entitic vol] 99.3 fL 81-99 [facility] Hematocrit Auto (Bld) [Volum e fraction]Ordered By: Dr. Koroma on 01-02-2023 Hematocrit (Bld) [Volume fraction] 43.9 % 37-47 [facility] Ketones Test strip Ql (U)Ord ered By: Dr. Koroma on 01-02-2023 Ketones Ql (U) Negative Negative [facility] - Chemistry and C hemistry - challengeOrdered By: Dr. Luque on 01-02-2023 Magnesium [Mass/Vol] 2.0 mg/dL 1.6-2.6 [facility] - Chemistry and C hemistry - challengeOrdered By: Dr. Koroma on 01-02-2023 ALP [Catalytic activity/Vol] 63 U/L 45-117 [facility] ALT [Catalytic activity/Vol] 24 U/L 13-56 [facility] CO2 [Moles/Vol] 27.0 mmol/L 21.0-32.0 [facility] Globulin (S) [Mass/Vol] 3.9 g/dL 2.2-4.2 [facility] Lipase [Catalytic activity/Vol] 235 U/L 73-393 [facility] Urea nitrogen/Creatinine [Mass ratio] 13.7 mg/mg 10-20 [facility] - Drug toxicology Ordered By: Dr. Koroma on 01-02-2023 Amphetamines Ql (U) Negative <1000 ng/mL [facility] Benzodiazepines Ql (U) Negative < 200 ng/mL [facility] Cannabinoids Screen Ql (U) Negative < 50 ng/mL [facility] Cocaine Ql (U) Negative < 300 ng/mL [facility] Opiates Ql (U) Negative < 300 ng/mL [facility] - Hematology and Cell countsOrdered By: Dr. Koroma on 01-02-2023 Erythrocyte distribution width (RBC) [Entitic vol] 56.6 fL 35.1-43.9 [facility] Erythrocyte distribution width (RBC) [Ratio] 15.6 % 11.6-14.6 [facility] Immature granulocytes/100 WBC (Bld) 0.400 % 0.0-0.9 [facility] Comment on above: IG% - Immature Granu locytes (promyelocytes, myelocytes and metamyelocytes) > 1% indicates that a LEFT SHIFT is Present. MCH (RBC) [Entitic mass] 31.7 pg 27.0-32.0 [facility] Nucleated RBC/100 WBC (Bld) [Ratio] 0 % [facility]5 [facility] [Mass/Vol]Or dered By: Dr. Koroma on 01-02-2023 MCHC (RBC) [Mass/Vol] 31.9 g/dL 32-36 [facility] Mucus LM Ql (Urine sed)Order ed By: Dr. Koroma on 01-02-2023 Mucus Ql (Urine sed) 0 SEEN /hpf [facility] Nitrite Test strip Ql (U)Ord ered By: Dr. Koroma on 01-02-2023 Nitrite Ql (U) Negative Negative [facility] No Panel InformationOrdered By: Dr. Koroma on 01-02-2023 Estimated Creatinine Clearance Calc 61.40 ml/min [facility] Estimated GFR (MDRD) Amer 91 mL/min >60 [facility] Comment on above: GFR Calc Estimated GFR (MDRD) Non-Af Amer 76 mL/min >60 [facility] Comment on above: Non- GFR Calc Ethyl Alcohol Level 112.0 mg/dL [facility] Comment on above: The serum:whole bloo d ethanol ratio is approximately 1.14and varies slightly with hematocrit. Medical Alcohol reference interval and critical value innon-tolerant individuals; 50 - 100 Impairment 100 Intoxication 100 - 250 Severe Poisoning 250 - 400 Deep/possible fatal coma Troponin I High Sensitivity 17 pg/mL 3.0-54.0 [facility] Comment on above: Please Note: New Elsa t Units and Gender Specific Reference Ranges. For more information see Policy Stat Procedure [place] High Sensitivity Troponin (TNIH) and attachments. MDMA (Ecstasy) Screen Negative < 500 ng/mL [facility] Urine Barbiturates Screen Negative < 200 ng/mL [facility] Urine Drug Screen Comment [facility] Comment on above: CONFIRMATORY TESTING FOR [...] Methadone Screen Negative < 300 ng/mL [facility] Platelets bldOrdered By: Dr. Koroma on 01-02-2023 Platelets (Bld) [#/Vol] 478 10*3/uL 150-450 [facility] Protein Test strip Ql (U)Ord ered By: Dr. Koroma on 01-02-2023 Protein Ql (U) Negative Negative [facility] Serum or plasma albumin giovanni urement (mass/volume)Ordered By: Dr. Koroma on 01-02-2023 Albumin [Mass/Vol] 3.4 g/dL 3.2-5.0 [facility] Serum or plasma albumin/glob ulin mass ratioOrdered By: Dr. Koroma on 01-02-2023 Albumin/Globulin [Mass ratio] 0.9 {ratio} 0.9-2.4 [facility] Serum or plasma calcium giovanni urement (mass/volume)Ordered By: Dr. Koroma on 01-02-2023 Calcium [Mass/Vol] 8.5 mg/dL 8.5-10.1 [facility] Serum or plasma creatinine m easurement (mass/volume)Ordered By: Dr. Koroma on 01-02-2023 Creatinine [Mass/Vol] 0.80 mg/dL 0.55-1.02 [facility] Comment on above: The validity of the calculated GFR & GFRAA in patients over 70 years has not been determined. Clinical correlation is essential. Serum or plasma urea nitroge n measurement (mass/volume)Ordered By: Dr. Koroma on 01-02-2023 Urea nitrogen [Mass/Vol] 11 mg/dL 7-18 [facility] Serum procalcitonin measurem entOrdered By: Dr. Luque on 01-02-2023 Procalcitonin [Mass/Vol] ng/mL 0.00-0.09 [facility] Comment on above: A procalcitonin (PCT [...] Ql (Urine sed) 0-5 SEEN /hpf 5-10 [facility] Thin prep Papanicolaou smear with manual screeningOrdered By: Dr. Koroma on 01-02-2023 Thin prep Papanicolaou smear with manual screening 17 U/L 15-37 [facility] Thin prep Papanicolaou smear with manual screening 7 5-15 [facility] Urine blood detectionOrdered By: Dr. Koroma on 01-02-2023 RBC Ql (U) Negative Negative [facility] RBC Ql (U) 0 SEEN /hpf 0-5 [facility] Urine clarityOrdered By: Dr. Koroma on 01-02-2023 Clarity (U) Clear Clear [facility] Urine color determinationOrd ered By: Dr. Koroma on 01-02-2023 Color (U) Yellow Yellow [facility] Urine glucose detectionOrder ed By: Dr. Koroma on 01-02-2023 Glucose Ql (U) Normal mg/dl Normal [facility] Urine leukocyte esterase det ection by dipstickOrdered By: Dr. Koroma on 01-02-2023 Leukocyte esterase Test strip Ql (U) Negative Negative [facility] Urine pHOrdered By: Dr. Haider mark on 01-02-2023 pH (U) 6.0 [pH] 5.0 - 8.0 [facility] Urine phencyclidine (PCP) de tectionOrdered By: Dr. Koroma on 01-02-2023 Phencyclidine Ql (U) Negative < 25 ng/mL [facility] Urine sediment bacteria coun t by microscopy (number/high power field)Ordered By: Dr. Koroma on 01-02-2023 Bacteria LM.HPF (Urine sed) [#/Area] 0 /[HPF] None Seen [facility] Urine specific gravity measu rementOrdered By: Dr. Koroma on 01-02-2023 Specific gravity (U) [Rel density] 1.005 1.002-1.030 [facility] Urobilinogen Auto test strip Ql (U)Ordered By: Dr. Koroma on 01-02-2023 Urobilinogen Ql (U) Normal mg/dl Normal [facility] A1AT SerPl-mCncon 01-01-2023 Alpha 1 antitrypsin [Mass/Vol] 192 mg/dL Normal 90-200 [facility] Comment on above: Order Comment: Speci men Type: BLOOD SPECIMENOrdering Facility: [facility] Address: [address] [place] [address] Performed By: #### 1 825-9 ####[facility] [id number] [place] [address] [place] CBC W Auto Differential pane l (Bld)on 01-01-2023 Basophils (Bld) [#/Vol] 0.07 10*3/uL Normal <0.11 [facility] Comment on above: Order Comment: Speci men Type: BLOOD SPECIMENOrdering Facility: [facility] Address: [address] [place] [address] Performed By: #### 5 7021-8 ####[facility] [id number] [place] [address] [place] Basophils/100 WBC (Bld) 1.0 % Normal [facility] Comment on above: Order Comment: Speci men Type: BLOOD SPECIMENOrdering Facility: [facility] Address: [address] [place] [address] Performed By: #### 5 7021-8 ####[facility] [id number] [place] [address] [place] Differential cell count method Nom (Bld) Auto Normal [facility] Comment on above: Order Comment: Speci men Type: BLOOD SPECIMENOrdering Facility: [facility] Address: [address] [place], [place] [address] Performed By: #### 5 7021-8 ####[facility] [id number] [place] [address] [place] Eosinophils (Bld) [#/Vol] 0.07 10*3/uL Normal <0.46 [facility] Comment on above: Order Comment: Speci men Type: BLOOD SPECIMENOrdering Facility: [facility] Address: [address] [place], [place] [address] Performed By: #### 5 7021-8 ####[facility] [id number] [address] [place] Eosinophils/100 WBC (Bld) 1.0 % Normal [facility] Comment on above: Order Comment: Speci men Type: BLOOD SPECIMENOrdering Facility: [facility] Address: [address] [place], [place] [address] Performed By: #### 5 7021-8 ####[facility] [id number] [place] [address] [place] Erythrocyte distribution width (RBC) [Ratio] 15.8 % High 11.5-15.0 [facility] Comment on above: Order Comment: Speci men Type: BLOOD SPECIMENOrdering Facility: [facility] Address: [address] [place], [place] [address] Performed By: #### 5 7021-8 ####[facility] [id number] [place] [address] [place] Hematocrit (Bld) [Volume fraction] 44.4 % Normal 36.0-46.0 [facility] Comment on above: Order Comment: Speci men Type: BLOOD SPECIMENOrdering Facility: [facility] Address: [address] [place] [address] Performed By: #### 5 7021-8 ####[facility] [id number] [place] [address] [place] Hemoglobin (Bld) [Mass/Vol] 14.1 g/dL Normal 11.5-15.5 [facility] Comment on above: Order Comment: Speci men Type: BLOOD SPECIMENOrdering Facility: [facility] Address: [address] Performed By: #### 5 7021-8 ####[facility] [id number] [place] [address] [place] Immature granulocytes (Bld) [#/Vol] 10*3/uL Normal <0.10 [facility] Comment on above: Order Comment: Speci men Type: BLOOD SPECIMENOrdering Facility: [facility] Address: [address] [place], [place] [address] Performed By: #### 5 7021-8 ####[facility] [id number] [place] [address] [place] Immature granulocytes/100 WBC (Bld) 0.3 % Normal [facility] Comment on above: Order Comment: Speci men Type: BLOOD SPECIMENOrdering Facility: [facility] Address: [address] [place], [place] [address] Performed By: #### 5 7021-8 ####[facility] [id number] [place] [address] [place] Lymphocytes (Bld) [#/Vol] 1.67 10*3/uL Normal 1.00-4.00 [facility] Comment on above: Order Comment: Speci men Type: BLOOD SPECIMENOrdering Facility: [facility] Address: [address] Performed By: #### 5 7021-8 ####[facility] [id number] [address] [place] [facility] Lymphocytes/100 WBC (Bld) 23.3 % Normal [facility] Comment on above: Order Comment: Speci men Type: BLOOD SPECIMENOrdering Facility: [facility] Address: [address] [place] [address] Performed By: #### 5 7021-8 ####[facility] [id number] [address] [place] MCH (RBC) [Entitic mass] 32.0 pg Normal 26.0-34.0 [facility] Comment on above: Order Comment: Speci men Type: BLOOD SPECIMENOrdering Facility: [facility] Address: [address] [place] [address] Performed By: #### 5 7021-8 ####[facility] [id number] [address] [place] MCHC (RBC) [Mass/Vol] 31.8 g/dL Normal 30.5-36.0 [facility] Comment on above: Order Comment: Speci men Type: BLOOD SPECIMENOrdering Facility: [facility] Address: [address] [place], [place] [address] Performed By: #### 5 7021-8 ####[facility] [id number] [address] [place] MCV (RBC) [Entitic vol] 100.9 fL High 80.0-100.0 [facility] Comment on above: Order Comment: Speci men Type: BLOOD SPECIMENOrdering Facility: [facility] Address: [address] [place], [place] [address] Performed By: #### 5 7021-8 ####[facility] [id number] [place] [address] [place] Monocytes (Bld) [#/Vol] 0.91 10*3/uL High <0.87 [facility] Comment on above: Order Comment: Speci men Type: BLOOD SPECIMENOrdering Facility: [facility] Address: [address] Performed By: #### 5 7021-8 ####[facility] [id number] [address] [place] Monocytes/100 WBC (Bld) 12.7 % Normal [facility] Comment on above: Order Comment: Speci men Type: BLOOD SPECIMENOrdering Facility: [facility] Address: [address] Performed By: #### 5 7021-8 ####[facility] [id number] [place] [address] [place] Neutrophils (Bld) [#/Vol] 4.44 10*3/uL Normal 1.45-7.50 [facility] Comment on above: Order Comment: Speci men Type: BLOOD SPECIMENOrdering Facility: [facility] Address: [address] Performed By: #### 5 7021-8 ####[facility] [id number] [address] STATES OF [facility] Neutrophils/100 WBC (Bld) 61.7 % Normal [facility] Comment on above: Order Comment: Speci men Type: BLOOD SPECIMENOrdering Facility: [facility] Address: [address] Performed By: #### 5 7021-8 ####[facility] [id number] [place] [address] [place] Nucleated RBC (Bld) [#/Vol] 10*3/uL Normal <0.01 [facility] Comment on above: Order Comment: Speci men Type: BLOOD SPECIMENOrdering Facility: [facility] Address: [address] Performed By: #### 5 7021-8 ####[facility] [id number] [place] [address] [place] Nucleated RBC/100 WBC (Bld) [Ratio] 0.0 /100 WBC Normal [facility] Comment on above: Order Comment: Speci men Type: BLOOD SPECIMENOrdering Facility: [facility] Address: [address] [place] [address] Performed By: #### 5 7021-8 ####[facility] [id number] [place] [address] [place] Platelet mean volume (Bld) [Entitic vol] 10.1 fL Normal 9.0-12.7 [facility] Comment on above: Order Comment: Speci men Type: BLOOD SPECIMENOrdering Facility: [facility] Address: [address] [place] [address] Performed By: #### 5 7021-8 ####[facility] [id number] [place] [address] [place] Platelets (Bld) [#/Vol] 439 10*3/uL High 150-400 [facility] Comment on above: Order Comment: Speci men Type: BLOOD SPECIMENOrdering Facility: [facility] Address: [address] [place], [place] [address] Performed By: #### 5 7021-8 ####[facility] [id number] [place] [address] [place] RBC (Bld) [#/Vol] 4.40 10*6/uL Normal 3.90-5.20 [facility] Comment on above: Order Comment: Speci men Type: BLOOD SPECIMENOrdering Facility: [facility] Address: [address] [place], [place] [address] Performed By: #### 5 7021-8 ####[facility] [id number] [place] [address] [place] WBC (Bld) [#/Vol] 7.18 10*3/uL Normal 3.70-11.00 [facility] Comment on above: Order Comment: Speci men Type: BLOOD SPECIMENOrdering Facility: [facility] Address: [address] [place] [address] Performed By: #### 5 7021-8 ####[facility] [id number] [address] [place] [id number] [address] [facility] CNOVon 01-01-2023 CNOV Office Visit (INTMWS ) STEVEN KOENIG ([id number]) 1955 F Date Time Provider Department 01/01/23 2:00 PM OLY SMITH INTMWS During your visit today, we recorded the following information about you: Pulse Respiration Blood pressure Weight 85/minute 22/minute 170/83 58.1 kg Oly Smith MANAGER INSTALLATION.SERVICE DELIVERY DIRECTOR 01/01/2023 3:27 PM Addendum CC: Patient presents [...] Alcohol use disorder 01/18/2016 Dr. Angie Jones, [facility] Anxiety 12/14/2015 Bipolar affective disorder, currently active ([facility]) 01/18/2016 Dr. Angie Jones, [facility] Chronic bronchitis ([facility]) 07/26/2016 Closed skull fracture ([facility]) 1994 [facility], [facility] Coronary artery disease DDD (degenerative disc disease), cervical Endometriosis 2007 Essential hypertension 12/14/2015 GERD (gastroesophageal reflux disease) 03/13/2019 History of colon polyps History of gastric ulcer 12/14/2015 HLD (hyperlipidemia) Injury of left facial nerve 1994 PAD (peripheral artery disease) ([facility]) 09/28/2019 Recurrent major depression in partial remission ([facility]) 12/14/2015 S/P drug eluting coronary [...] TOTAL FACIAL NERVE DECOMPRESSION AND/REPAIR Left 1989 [facility] Patient has no known allergies. MEDICATIONS traZODone (DESYREL) 100 mg tablet Take 2 tablets by mouth daily at bedtime. pteohdratvw-obxxgqnsw-p ilanter (TRELEGY ELLIPTA) 200-62.5-25 mcg inhalation powder [...] 1 tabl (more content not included)... Normal [facility] Frank 01-01-2023 [facility] STEV[facility] KOENIG ([id number]) 1955 Date Time Provider Department 01/01/23 [facility] During your visit today, we recorded the following information about you: GIO Cardona 01/01/2023 3:55 PM Signed Behavioral Health Social Work Progress Note Patient identified for [facility] from: PCP Reason for referral: Resources Behavioral Health Resources: Substance abuse [facility] encounter type: Telephone Encounter Attempts to Outreach: 1 attempt Referral made: Psychology - External Psychology-External referral type: Alcohol/Drug Treatment Reason for external referral: Patient seeking medical language specialist support, Patient needs services closer to home [...] look into for detoxification and substance abuse: [facility] [address] [place] [address] [address] [facility] [address] [place] [address] [phone] Patient states she may end up just going to [facility] if she can't find anywhere to go to assist as she really needs to detox. Advised to call these numbers and if additional assistance is needed to inform this SW. GIO Cardona January 01, 2023 Allergies As of Date: 01/01/2023 (No Known Allergies) Date Reviewed: 01/01/2023 Reviewed by: Oly Smith APRN.SERVICE DELIVERY DIRECTOR - Fully Assessed Reason for Visit: Behavioral Health Social Work [Other] Prescriptions as of 01/01/2023 - traZODone (DESYREL) 100 mg tablet Take 2 tablets by mouth daily at bedtime. - ixygalkcfdw-vtoebskig-p ilanter (TRELEGY ELLIPTA) 200-62.5-25 mcg inhalation powder [...] [I73.9] 09/28/2019 (more content not included)... Normal [facility] XR CHEST 2V FRONTAL/LATon XR [...] tissues: Unremarkable. IMPRESSION: No acute radiographic abnormality. Inspector Plug Seam: PSCB Transcribe Date/Time: Jan 01 2023 3:22P Dictated by : HUBER VILA MD This examination was interpreted and the report reviewed and electronically signed by: HUBER VILA MD on Jan 01 2023 3:23PM EST [id number] Normal [facility] XR Chest PA and Lateralon IMPRESSION: No acute radiographic abnormality. Inspector Plug Seam: SRAVANI Transcribe Date/Time: Jan 01 2023 3:22P Dictated by : HUBER VILA MD This examination was interpreted and the report reviewed and electronically signed by: HUBER VILA MD on Jan 01 2023 3:23PM [facility] DIVISION OF RADIOLOGY * * *Final Report* [...] soft tissues: Unremarkable. DIVISION OF RADIOLOGY Provider, [facility] - 01/01/2023 * * *Final Report* [...] Unremarkable. IMPRESSION IMPRESSION: No acute radiographic abnormality. Inspector Plug Seam: SRAVANI Transcribe Date/Time: Jan 01 2023 3:22P Dictated by : HUBER VILA MD This examination was interpreted and the report reviewed and electronically signed by: HUBER VILA MD on Jan 01 2023 3:23PM [facility] Radiology Study observation (narrative) [facility] XR Chest PA and LateralOrder ed By: Ccf Provider on 01-01-2023 [facility] .Auto Diffon 12-23-2022 Basophil, Absolute 0.1 10 3/mcL Normal 0.0-0.2 [facility] ([place]) Comment on above: Performed By: #### T ROPHS, GFR, CMP, PBNP #### [address] [address] Basophils/100 WBC (Bld) 1.5 % Normal 0.0-2.5 [facility] ([place]) Comment on above: Performed By: #### T ROPHS, GFR, CMP, PBNP #### [address] [address] Eosinophil, Absolute 0.1 10 3/mcL Normal 0.0-0.4 [facility] ([place]) Comment on above: Performed By: #### T ROPHS, GFR, CMP, PBNP #### [address] [address] Eosinophils/100 WBC (Bld) 1.1 % Normal 0.0-7.0 [facility] ([place]) Comment on above: Performed By: #### T ROPHS, GFR, CMP, PBNP #### [address] [address] Lymphocyte, Absolute 2.0 10 3/mcL Normal 0.8-3.9 [facility] ([place] Comment on above: Performed By: #### T ROPHS, GFR, CMP, PBNP #### [address] [address] Lymphocytes/100 WBC (Bld) 36.4 % Normal 10.0-50.0 [facility] ([place] Comment on above: Performed By: #### T ROPHS, GFR, CMP, PBNP #### [address] [address] Monocyte, Absolute 0.5 10 3/mcL Normal 0.2-1.0 [facility] ([place] Comment on above: Performed By: #### T ROPHS, GFR, CMP, PBNP #### [address] [address] Monocytes/100 WBC (Bld) 9.3 % Normal 1.7-13.0 [facility] ([place]) Comment on above: Performed By: #### T GOMEZ, GFR, CMP, PBNP #### [address] [address] Neutrophils/100 WBC (Bld) 51.7 % Normal 37.0-80.0 [facility] ([place]) Comment on above: Performed By: #### T GOMEZ, GFR, CMP, PBNP #### [place] [address] [address] .GFRon 12-23-2022 GFR 100 ml/min/1.73sqm Normal [facility] ([place]) Comment on above: Result Comment: [...] #### T GOMEZ, GFR, CMP, PBNP #### [address] [address] GFR Non- 82 ml/min/1.73sqm Normal [facility] ([place]) Comment on above: Result Comment: [...] #### T GOMEZ, GFR, CMP, PBNP #### [address] [address] .MDWon 12-23-2022 Monocyte Distribution Width 18.17 Normal 0.00-20.00 [facility] ([place]) Comment on above: Result Comment: For ED adult patients suspected of sepsis, MDW<=20.0 does not rule out sepsis or risk of sepsis Performed By: #### T GOMEZ, GFR, CMP, PBNP #### [address] [address] .NEUABSon 12-23-2022 Neutrophil, Absolute 2.8 10 3/mcL Low 2.9-6.2 [facility] ([place] Comment on above: Performed By: #### T GOMEZ, GFR, CMP, PBNP #### [address] [address] BMPon 12-23-2022 BUN/Creatinine Ratio 6 ratio Low 7-27 [facility] ([place]) Comment on above: Performed By: #### T GOMEZ, GFR, CMP, PBNP #### [address] [address] Calcium [Mass/Vol] 8.1 mg/dL Low 8.4-10.2 [facility] ([place]) Comment on above: Performed By: #### T GOMEZ, GFR, CMP, PBNP #### [address] [address] Chloride [Moles/Vol] 102 mmol/L Normal 98-107 [facility] ([place]) Comment on above: Performed By: #### T GOMEZ, GFR, CMP, PBNP #### [address] [address] CO2 [Moles/Vol] 30 mmol/L Normal 23-31 [facility] ([place] Comment on above: Performed By: #### T ROPHS, GFR, CMP, PBNP #### [address] [address] Creatinine [Mass/Vol] 0.71 mg/dL Normal 0.55-1.02 [facility] ([place]) Comment on above: Performed By: #### T ROPHS, GFR, CMP, PBNP #### [address] [address] Electrolyte Balance 7.0 mEq/L Normal 4.0-15.0 [facility] ([place]) Comment on above: Performed By: #### T ROPHS, GFR, CMP, PBNP #### [address] [address] Glucose [Mass/Vol] 88 mg/dL Normal 80-115 [facility] ([place]) Comment on above: Performed By: #### T ROPHS, GFR, CMP, PBNP #### [address] [address] Potassium [Moles/Vol] 4.1 mmol/L Normal 3.5-5.1 [facility] ([place]) Comment on above: Performed By: #### T ROPHS, GFR, CMP, PBNP #### [address] [address] Sodium [Moles/Vol] 139 mmol/L Normal 136-145 [facility] ([place]) Comment on above: Performed By: #### T ROPHS, GFR, CMP, PBNP #### [address] [address] Urea nitrogen [Mass/Vol] 4 mg/dL Low 7-18 [facility] ([place] Comment on above: Performed By: #### T ROPHS, GFR, CMP, PBNP #### [address] [address] CBCon 12-23-2022 Erythrocyte distribution width (RBC) [Ratio] 15.8 % High 11.5-14.5 [facility] ([place]) Comment on above: Performed By: #### T ROPHS, GFR, CMP, PBNP #### [address] [address] Hematocrit (Bld) [Volume fraction] 39.7 % Normal 37.0-47.0 [facility] ([place]) Comment on above: Performed By: #### T ROPHS, GFR, CMP, PBNP #### [address] [address] Hgb 13.2 G/dL Normal 12.0-16.0 [facility] ([place] Comment on above: Performed By: #### T ROPHS, GFR, CMP, PBNP #### [address] [address] MCH (RBC) [Entitic mass] 32.3 pg High 27.0-31.2 [facility] ([place] Comment on above: Performed By: #### T ROPHS, GFR, CMP, PBNP #### [place] [address] MCHC 33.2 G/dL Normal 33.0-37.0 [facility] ([place] Comment on above: Performed By: #### T ROPHS, GFR, CMP, PBNP #### [address] [address] MCV (RBC) [Entitic vol] 97.3 fL High 80.0-94.0 [facility] ([place]) Comment on above: Performed By: #### T ROPHS, GFR, CMP, PBNP #### [address] [address] Platelet 337 10 3/mcL Normal 130-400 [facility] ([place]) Comment on above: Performed By: #### T ROPHS, GFR, CMP, PBNP #### [address] [address] Platelet mean volume (Bld) [Entitic vol] 7.7 fL Normal 7.4-10.4 [facility] ([place]) Comment on above: Performed By: #### T ROPHS, GFR, CMP, PBNP #### [place] [id number] RBC 4.08 10 6/mcL Low 4.20-5.40 [facility] ([place]) Comment on above: Performed By: #### T ARIELLEHS, GFR, CMP, PBNP #### [place] [address] [place], [place] [address] WBC 5.4 10 3/mcL Normal 4.6-10.8 [facility] ([place]) Comment on above: Performed By: #### T ARIELLEHS, GFR, CMP, PBNP #### [facility] [address] [place], [place] [address] LABORATORYOrdered By: Lisa Casas on 12-23-2022 Basophil, [...] B (Bld) [Mass/Vol] 540 pg/mL High 0-125 [facility] ([place]) Comment on above: Result Comment: NT-p roBNP results of less than 300 pg/mL effectively rules out acute congestive heart failure with 99% negative predictive value. Performed By: #### T GOMEZ, GFR, CMP, PBNP #### [place] [address] [address] TROPHSon 12-23-2022 Troponin I High Sensitivity 14.1 ng/L Normal 0.0-51.4 [facility] ([place]) Comment on above: Performed By: #### T GOMEZ, GFR, CMP, PBNP #### [address] [address] XR CHEST 1 VIEWon 12-23-2022 XR CHEST [...] 2:43:01 PM Ordering Provider: JOSE ROBERTO [facility] ([place]) Luba 11-26-2022 CN Office Visit (PULMWS ) STEVEN KOENIG ([id number]) 1955 F Date Time Provider Department 11/26/22 12:45 PM ISAURO ASHER PULMWS During your visit today, we recorded the following information about you: Pulse Respiration Blood pressure Weight 98/minute 20/minute 120/84 57.6 kg Isauro Asher MD 11/26/2022 2:01 PM Signed . Respiratory [place] Note Patient name: Steven Koenig PCP: Ulises Hermosillo MD CC: Hemoptysis HPI: Steven Koenig 67 year old female current heavy smoker, over 100 pack years with PMH significant for bipolar affective disorder, h/o alcohol abuse, GERD, PAD, HLD, CAD s/p stent, severe COPD (FEV1 0.83 L 36%), oxygen dependence, previously following in [facility], [place] Recent admission at [facility] in [place] for AECOPD. CXR reported as normal. Discharged [...] pain or current cough. DME: [facility] Care DATA: PFT 05/2022: Review of spirometry shows severe obstruction without significant improvement post bronchodilators and moderate reduction in diffusing capacity Labs: Laboratory testing at [facility], normal CBC and platelet count. Negative COVID and influenza Imaging / Diagnostic Studies: DATE OF EXAM: Jul 26 2022 4:27PM [facility] [place] LUNG SCREEN WO IVCON [...] 12/14/2015 Bipolar affective disorder, currently active ([facility] 01/18/2016 Dr. Angie [facility] Chronic bronchitis ([facility]) 07/26/2016 Closed skull fracture ([facility]) 1994 [facility] Coronary artery disease DDD (degenerative disc disease), cervical Endometriosis 2007 Essential hypertension 12/14/2015 GERD (gastroesophageal reflux disease) 03/13/2019 History of colon polyps History of gastric ulcer 12/14/2015 HLD (hyperlipidemia) Injury of left facial nerve 1994 PAD (peripheral artery disease) ([facility]) 09/28/2019 Recurrent major depression in partial remission ([facility]) 12/14/2015 S/P drug eluting coronary stent placement 08/25/2021 LAD and Dg2 Spinal stenosis ALLERGIES No Known Allergies albuterol HFA (VENTOLIN HFA) 90 mcg/actuation inhaler Inhale 2 Puffs as instructed every 6 hours as needed for wheezing/shortness of breath. lmviomfvcsv-kkhcazweh-g ilanter (TRELEGY ELLIPTA) 200-62.5-25 mcg inhalation powder [...] 8 hours (more content not included)... [facility] Telephone (INTMWS) STEVEN KOENIG ([id number]) 1955 F Date Time Provider Department 11/20/22 ULISES HERMOSILLO INTMWS During your visit today, we recorded the following information about you: Christina Greco LPN 11/20/2022 10:40 AM Signed Pt called and reports she went to [facility] ER last week for difficulty [...] tablets by mouth daily at bedtime. - ujuroqfjtbv-spxarmjkl-m ilanter (TRELEGY ELLIPTA) 200-62.5-25 mcg inhalation powder [...] none*09/28/2019 07/07/2020 PAD (peripheral artery disease) ([facility]) [I73.9] 09/28/2019 Anxiety and depression (more content not included)... Normal [facility] .Auto Diffon 10-26-2022 Basophil, Absolute 0.1 10 3/mcL Normal 0.0-0.2 [facility] ([place]) Comment on above: Performed By: #### T GOMEZ, GFR, CMP, PBNP #### [address] [address] Basophils/100 WBC (Bld) 1.6 % Normal 0.0-2.5 [facility] ([place]) Comment on above: Performed By: #### T GOMEZ, GFR, CMP, PBNP #### [address] [address] Eosinophil, Absolute 0.2 10 3/mcL Normal 0.0-0.4 [facility] ([place]) Comment on above: Performed By: #### T GOMEZ, GFR, CMP, PBNP #### [address] [address] Eosinophils/100 WBC (Bld) 2.3 % Normal 0.0-7.0 [facility] ([place]) Comment on above: Performed By: #### T GOMEZ, GFR, CMP, PBNP #### [address] [address] Lymphocyte, Absolute 2.1 10 3/mcL Normal 0.8-3.9 [facility] ([place]) Comment on above: Performed By: #### T ARIELLEHS, GFR, CMP, PBNP #### [address] [address] Lymphocytes/100 WBC (Bld) 29.5 % Normal 10.0-50.0 [facility] ([place] Comment on above: Performed By: #### T ROPHS, GFR, CMP, PBNP #### [address] [address] Monocyte, Absolute 0.6 10 3/mcL Normal 0.2-1.0 [facility] ([place]) Comment on above: Performed By: #### T ROPHS, GFR, CMP, PBNP #### [address] [address] Monocytes/100 WBC (Bld) 8.6 % Normal 1.7-13.0 [facility] ([place]) Comment on above: Performed By: #### T ROPMARILEE, GFR, CMP, PBNP #### [address] [address] Neutrophils/100 WBC (Bld) 58.0 % Normal 37.0-80.0 [facility] ([place]) Comment on above: Performed By: #### T GOMEZ, GFR, CMP, PBNP #### [address] [address] .GFRon 10-26-2022 GFR 100 ml/min/1.73sqm Normal [facility] ([place]) Comment on above: Result Comment: GFR Population [...] #### T ROPHS, GFR, CMP, PBNP #### [address] [address] GFR Non- 82 ml/min/1.73sqm Normal [facility] ([place]) Comment on above: Result Comment: GFR Population [...] #### T GOMEZ, GFR, CMP, PBNP #### [place] [address] .MDWon 10-26-2022 Monocyte Distribution Width 17.60 Normal 0.00-20.00 [facility] ([place]) Comment on above: Result Comment: For ED adult patients suspected of sepsis, MDW<=20.0 does not rule out sepsis or risk of sepsis Performed By: #### T GOMEZ, GFR, CMP, PBNP #### [address] [address] .NEUABSon 10-26-2022 Neutrophil, Absolute 4.1 10 3/mcL Normal 2.9-6.2 [facility] ([place]) Comment on above: Performed By: #### T ROPHS, GFR, CMP, PBNP #### [address] [address] CBCon 10-26-2022 Erythrocyte distribution width (RBC) [Ratio] 17.6 % High 11.5-14.5 [facility] ([place]) Comment on above: Performed By: #### T ROPHS, GFR, CMP, PBNP #### [place] [id number] Hematocrit (Bld) [Volume fraction] 39.9 % Normal 37.0-47.0 [facility] ([place] Comment on above: Performed By: #### T GOMEZ, GFR, CMP, PBNP #### [address] [address] Hgb 13.3 G/dL Normal 12.0-16.0 [facility] ([place] Comment on above: Performed By: #### T ROPHS, GFR, CMP, PBNP #### [address] [address] MCH (RBC) [Entitic mass] 32.2 pg High 27.0-31.2 [facility] ([place] Comment on above: Performed By: #### T GOMEZ, GFR, CMP, PBNP #### [address] [address] MCHC 33.4 G/dL Normal 33.0-37.0 [facility] ([place] Comment on above: Performed By: #### T ROPHS, GFR, CMP, PBNP #### [address] [address] MCV (RBC) [Entitic vol] 96.4 fL High 80.0-94.0 [facility] ([place]) Comment on above: Performed By: #### T ROPMARILEE, GFR, CMP, PBNP #### [address] [address] Platelet 387 10 3/mcL Normal 130-400 [facility] ([place] Comment on above: Performed By: #### T ROPHS, GFR, CMP, PBNP #### [address] [address] Platelet mean volume (Bld) [Entitic vol] 7.1 fL Low 7.4-10.4 [facility] ([place]) Comment on above: Performed By: #### T ROPHS, GFR, CMP, PBNP #### [address] [address] RBC 4.14 10 6/mcL Low 4.20-5.40 [facility] ([place]) Comment on above: Performed By: #### T ROPHS, GFR, CMP, PBNP #### [address] [address] WBC 7.1 10 3/mcL Normal 4.6-10.8 [facility] ([place]) Comment on above: Performed By: #### T ROPHS, GFR, CMP, PBNP #### [address] [address] CMPon 10-26-2022 Albumin Level 3.3 G/dL Low 3.4-4.8 [facility] ([place]) Comment on above: Performed By: #### T GOMEZ, GFR, CMP, PBNP #### [address] [address] Albumin/Globulin [Mass ratio] 0.9 {ratio} Low 1.1-2.5 [facility] ([place]) Comment on above: Performed By: #### T GOMEZ, GFR, CMP, PBNP #### [address] [address] ALP [Catalytic activity/Vol] 83 U/L Normal 40-135 [facility] ([place]) Comment on above: Performed By: #### T ROPMARILEE, GFR, CMP, PBNP #### [address] [address] ALT [Catalytic activity/Vol] 29 U/L Normal 14-59 [facility] ([place]) Comment on above: Performed By: #### T ARIELLEHS, GFR, CMP, PBNP #### [address] [address] AST [Catalytic activity/Vol] 21 U/L Normal 10-40 [facility] ([place] Comment on above: Performed By: #### T ROPHS, GFR, CMP, PBNP #### [address] [address] Bili Total 0.1 mg/dL Low 0.2-1.0 [facility] ([place]) Comment on above: Result Comment: Use of this assay is not recommended for patients undergoing treatment with eltrombopag due to the potential for falsely elevated results. Performed By: #### T ROPHS, GFR, CMP, PBNP #### [place] [address] BUN/Creatinine Ratio 14 ratio Normal 7-27 [facility] ([place]) Comment on above: Performed By: #### T ROPHS, GFR, CMP, PBNP #### [place] [address] Calcium [Mass/Vol] 8.5 mg/dL Normal 8.4-10.2 [facility] ([place]) Comment on above: Performed By: #### T ROPHS, GFR, CMP, PBNP #### [place] [address] Chloride [Moles/Vol] 104 mmol/L Normal 98-107 [facility] ([place]) Comment on above: Performed By: #### T ROPHS, GFR, CMP, PBNP #### [place] [address] CO2 [Moles/Vol] 28 mmol/L Normal 23-31 [facility] ([place] Comment on above: Performed By: #### T ROPHS, GFR, CMP, PBNP #### [place] [address] Creatinine [Mass/Vol] 0.71 mg/dL Normal 0.55-1.02 [facility] ([place]) Comment on above: Performed By: #### T ROPHS, GFR, CMP, PBNP #### [place] [address] Electrolyte Balance 8.0 mEq/L Normal 4.0-15.0 [facility] ([place]) Comment on above: Performed By: #### T ROPHS, GFR, CMP, PBNP #### [place] [address] Globulin 3.5 G/dL Normal [facility] ([place]) Comment on above: Performed By: #### T ROPHS, GFR, CMP, PBNP #### [place] [id number] Glucose [Mass/Vol] 88 mg/dL Normal 80-115 [facility] ([place]) Comment on above: Performed By: #### T GOMEZ, GFR, CMP, PBNP #### [address] [address] Potassium [Moles/Vol] 4.5 mmol/L Normal 3.5-5.1 [facility] ([place]) Comment on above: Performed By: #### T GOMEZ, GFR, CMP, PBNP #### [address] [address] Sodium [Moles/Vol] 140 mmol/L Normal 136-145 [facility] ([place]) Comment on above: Performed By: #### T GOMEZ, GFR, CMP, PBNP #### [address] [address] Total Protein 6.8 G/dL Normal 6.4-8.2 [facility] ([place]) Comment on above: Performed By: #### T GOMEZ, GFR, CMP, PBNP #### [address] [address] Urea nitrogen [Mass/Vol] 10 mg/dL Normal 7-18 [facility] ([place] Comment on above: Performed By: #### T GOMEZ, GFR, CMP, PBNP #### [address] [address] XUDV99kg 10-26-2022 SARS-CoV-2 (COVID-19) RNA IVANA+probe Ql (Unsp spec) Negative Normal Negative [facility] ([place] Comment on above: Performed By: #### T ROPMARILEE, GFR, CMP, PBNP #### [address] [address] SARS-CoV-2 (COVID-19) RNA IVANA+probe Ql (Unsp spec) Normal [facility] ([place]) Comment on above: Result Comment: Nega tive [...] #### T GOMEZ, GFR, CMP, PBNP #### [address] [address] FLURSVon 10-26-2022 Flu A PCR (AO) Negative Normal Negative [facility] ([place]) Comment on above: Result Comment: Posi tive [...] virus (RSV) nucleic acid in nasopharyngeal swab (ACCOUNT MANAGER RELIEF) specimens from patients with signs and symptoms of respiratory infection in conjunction with clinical and laboratory findings. The test is intended for use as an aid in the differential diagnosis of influenza A virus, influenza B virus, and RSV in humans and is not intended to detect influenza C. Performed By: #### T GOMEZ, GFR, CMP, PBNP #### [address] [address] Flu B PCR (AO) Negative Normal Negative [facility] ([place]) Comment on above: Result Comment: Posi tive [...] REPEAT COLLECTION AND TESTING IS RECOMMENDED. The [employer] Flu A/B & RSV Assay is a real-time polymerase chain reaction (PCR) based qualitative in vitro diagnostic test for the direct detection and differentiation of influenza A virus, influenza B virus, and respiratory syncytial virus (RSV) nucleic acid in nasopharyngeal swab (ACCOUNT MANAGER RELIEF) specimens from patients with signs and symptoms of respiratory infection in conjunction with clinical and laboratory findings. The test is intended for use as an aid in the differential diagnosis of influenza A virus, influenza B virus, and RSV in humans and is not intended to detect influenza C. Performed By: #### T GOMEZ, GFR, CMP, PBNP #### [address] [address] RSV PCR (AO) Negative Normal Negative [facility] ([place]) Comment on above: Result Comment: Posi tive [...] virus (RSV) nucleic acid in nasopharyngeal swab (ACCOUNT MANAGER RELIEF) specimens from patients with signs and symptoms of respiratory infection in conjunction with clinical and laboratory findings. The test is intended for use as an aid in the differential diagnosis of influenza A virus, influenza B virus, and RSV in humans and is not intended to detect influenza C. Performed By: #### T ROPHS, GFR, CMP, PBNP #### [place] [address] [place] [address] LABORATORYOrdered By: Jensen Fay on 10-26-2022 FLUAV [...] B (Bld) [Mass/Vol] 521 pg/mL High 0-125 [facility] ([place]) Comment on above: Result Comment: NT-p roBNP results of less than 300 pg/mL effectively rules out acute congestive heart failure with 99% negative predictive value. Performed By: #### T ROPHS, GFR, CMP, PBNP #### [address] [address] TOXSCon 10-26-2022 U Ampheta (AO) Negative Normal [facility] ([place]) Comment on above: Performed By: #### U A, TOXSC #### [address] [address] U Nanci (AO) Negative Normal [facility] ([place]) Comment on above: Performed By: #### U A, TOXSC #### [address] [address] U Heron (AO) Negative Normal [facility] ([place]) Comment on above: Performed By: #### U A, TOXSC #### [address] [address] U Cannab (AO) Negative [facility] ([place]) Comment on above: Performed By: #### U A, TOXSC #### [address] [address] U Cocaine (AO) Negative [facility] ([place]) Comment on above: Performed By: #### U A, TOXSC #### [address] [address] U Methadone (AO) Negative [facility] ([place]) Comment on above: Performed By: #### U A, TOXSC #### [address] [address] U PCP (AO) Negative [facility] ([place]) Comment on above: Performed By: #### U A, TOXSC #### [address] [address] U TCA (AO) Negative [facility] ([place]) Comment on above: Performed By: #### U A, TOXSC #### [address] [address] Urine Opiates (AO) Negative [facility] ([place] Comment on above: Performed By: #### U A, TOXSC #### [address] [address] TROPHSon 10-26-2022 Troponin I High Sensitivity 15.6 ng/L Normal 0.0-51.4 [facility] ([place] Comment on above: Performed By: #### T ROPHS, GFR, CMP, PBNP #### [address] [address] UAon 10-26-2022 Color (U) Yellow [facility] ([place]) Comment on above: Performed By: #### U A, TOXSC #### [address] [address] Glucose (U) [Mass/Vol] Negative Normal Negative [facility] ([place]) Comment on above: Performed By: #### U A, TOXSC #### [address] [address] Ketones Ql (U) Negative Normal Negative [facility] ([place] Comment on above: Performed By: #### U A, TOXSC #### [address] [address] UA Appear Clear Normal Clear [facility] ([place] Comment on above: Performed By: #### U A, TOXSC #### [address] [address] UA Blood Negative Normal Negative [facility] [place] Comment on above: Performed By: #### U A, TOXSC #### [place] [address] UA Leuk Est Negative Normal Negative [facility] [place] Comment on above: Performed By: #### U A, TOXSC #### [place] [address] UA Nitrite Negative Normal Negative [facility] [place] Comment on above: Performed By: #### U A, TOXSC #### [place] [address] UA pH 5.5 Normal 5.0 - 8.0 [facility] [place] Comment on above: Performed By: #### U A, TOXSC #### [place] [address] UA Protein Negative Normal Negative [facility] [place] Comment on above: Performed By: #### U A, TOXSC #### [address] [address] UA Spec Grav <=1.005 Abnormal 1.015-1.025 [facility] [place] Comment on above: Performed By: #### U A, TOXSC #### [place] [address] UA Specimen Type Not Given Normal [facility] [place] Comment on above: Performed By: #### U A, TOXSC #### [place] [address] [place], [place] [address] UA Urobilinogen 0.2 E.U./dL Normal 0.2-1.0 [facility] ([place] Comment on above: Performed By: #### U A, TOXSC #### [place] [address] [place], [place] [address] Urobilinogen (U) [Mass/Vol] Negative Normal Negative [facility] [place] Comment on above: Performed By: #### U A, TOXSC #### [place] [address] [place], [place] [address] XR CHEST 1 VIEWon 10-26-2022 XR CHEST [...] 10/26/2022 7:06:29 PM Ordering Provider: BRIAN Rivero [facility]) CT LUNG SCREEN WO IVCONon CT LUNG SCREEN WO IVCON * * *Final Repor t* * * DATE OF EXAM: Jul 26 2022 4:27PM [facility] [place] [facility] LUNG SCREEN WO IVCON [...] without contrast. MQ: [id number]_6 Patient characteristics: * Ohpk-pj-Anebe: 1955; Age at exam: 67 years * Gender: Female * Lung Disease: Asymptomatic (no signs or symptoms of lung disease) * Number of Pack Years: 55 * Current smoker (=0) or Number of Years since Quit: 0 * Ordering provider and NPI: NICOLE KIMIMARCELLE KENNY [id number] * Interpreting radiologist and NPI: Ervin [id number] Exam acquisition parameters: * Exam Date: 07/26/2022 4:27 PM * Site: [facility] * * CT System Director [employer]othermal Operations: Mofang * CT System Model: Dual Source * [...] Descending stents in place; Right Coronary mild Automobile Insurance Claim Examiner (topogram) images: No additional findings. IMPRESSION: LungRADS category: 2 LungRADS modifier: None LungRADS 0 reason: n/a Recommendations: Continue annual screening with LDCT in 12 months. Other actionable findings: ====== Reference: [employer]. Lung CT Screening Reporting and Data System (Lung-RADS). Available at: http://www.acr.org/Qual ity-Safety/Resources/Shaina RutledgeS Inspector Plug Seam: SRAVANI Transcribe Date/Time: Jul 27 2022 8:04A Dictated by : VEE GAMINO MD This examination was interpreted and the report reviewed and electronically signed by: VEE GAMINO MD on Jul 27 2022 8:16AM EST [id number] Normal [facility] OXIMETRY WITH AMBULATIONon 0 07-09-2022 [facility] ECHOon 05-21-2022 [facility] .Auto Diffon 05-05-2022 Basophil, Absolute 0.0 10 3/mcL Normal 0.0-0.3 [facility] ([place] Comment on above: Performed By: #### T GOMEZ, GFR, CMP, PBNP #### [address] [address] Basophils/100 WBC (Bld) 0.1 % Normal 0.0-2.5 [facility] ([place] Comment on above: Performed By: #### T ROPHS, GFR, CMP, PBNP #### [address] [address] Eosinophil, Absolute 0.0 10 3/mcL Normal 0.0-0.7 [facility] ([place] Comment on above: Performed By: #### T ROPHS, GFR, CMP, PBNP #### [address] [address] Eosinophils/100 WBC (Bld) 0.0 % Normal 0.0-6.0 [facility] ([place] Comment on above: Performed By: #### T ROPHS, GFR, CMP, PBNP #### [address] [address] Lymphocyte, Absolute 0.6 10 3/mcL Low 0.9-4.3 [facility] ([place] Comment on above: Performed By: #### T ROPHS, GFR, CMP, PBNP #### [address] [address] Lymphocytes/100 WBC (Bld) 5.1 % Low 20.0-40.0 [facility] ([place] Comment on above: Performed By: #### T ROPHS, GFR, CMP, PBNP #### [address] [address] Monocyte, Absolute 0.3 10 3/mcL Normal 0.1-1.4 [facility] ([place] Comment on above: Performed By: #### T ROPHS, GFR, CMP, PBNP #### [address] [address] Monocytes/100 WBC (Bld) 2.4 % Normal 2.0-13.0 [facility] ([place] Comment on above: Performed By: #### T ROPHS, GFR, CMP, PBNP #### [address] [address] Neutrophils/100 WBC (Bld) 92.4 % High 50.0-75.0 [facility] ([place] Comment on above: Performed By: #### T ROPHS, GFR, CMP, PBNP #### [address] [address] .GFRon 05-05-2022 GFR >60 Normal [facility] ([place] Comment on above: Result Comment: GFR Population [...] #### T GOMEZ, GFR, CMP, PBNP #### [address] [address] GFR Non- >60 Normal [facility] ([place] Comment on above: Result Comment: GFR Population [...] #### T GOMEZ, GFR, CMP, PBNP #### [address] [address] .MDWon 05-05-2022 Monocyte Distribution Width Not performed Normal 0.00-20.00 [facility] ([place] Comment on above: Result Comment: MDW testing performed only on adult ER patients between the ages of 18-89 years. Performed By: #### T GOMEZ, GFR, CMP, PBNP #### [address] [address] .NEUABSon 05-05-2022 Neutrophil, Absolute 10.8 10 3/mcL High 2.3-8.1 [facility] ([place] Comment on above: Performed By: #### T GOMEZ, GFR, CMP, PBNP #### [address] [address] BMPon 05-05-2022 BUN/Creatinine Ratio 29.6 ratio High 10.0-22.0 [facility] ([place] Comment on above: Performed By: #### T GOMEZ, GFR, CMP, PBNP #### [address] [address] Calcium [Mass/Vol] 8.5 mg/dL Low 8.7-10.4 [facility] ([place] Comment on above: Performed By: #### T ROPHS, GFR, CMP, PBNP #### [address] [address] Chloride [Moles/Vol] 106 mmol/L Normal 98-110 [facility] ([place] Comment on above: Performed By: #### T ROPHS, GFR, CMP, PBNP #### [address] [address] CO2 [Moles/Vol] 32 mmol/L Normal 22-32 [facility] ([place] Comment on above: Performed By: #### T GOMEZ, GFR, CMP, PBNP #### [address] [address] Creatinine [Mass/Vol] 0.71 mg/dL Normal 0.50-1.20 [facility] ([place] Comment on above: Performed By: #### T GOMEZ, GFR, CMP, PBNP #### [address] [address] Electrolyte Balance 3.0 mEq/L Low 4.0-15.0 [facility] ([place] Comment on above: Performed By: #### T ROPHS, GFR, CMP, PBNP #### [address] [address] Glucose [Mass/Vol] 224 mg/dL High 82-115 [facility] ([place] Comment on above: Performed By: #### T ROPHS, GFR, CMP, PBNP #### [address] [address] Potassium [Moles/Vol] 4.5 mmol/L Normal 3.5-5.0 [facility] ([place] Comment on above: Performed By: #### T ROPHS, GFR, CMP, PBNP #### [address] [address] Sodium [Moles/Vol] 141 mmol/L Normal 136-145 [facility] ([place] Comment on above: Performed By: #### T ROPHS, GFR, CMP, PBNP #### [address] [address] Urea nitrogen [Mass/Vol] 21.0 mg/dL Normal 8.0-22.0 [facility] ([place] Comment on above: Performed By: #### T ROPHS, GFR, CMP, PBNP #### [address] [address] CBCon 05-05-2022 Erythrocyte distribution width (RBC) [Ratio] 16.5 % High 11.5-15.5 [facility] ([place] Comment on above: Performed By: #### T ROPHS, GFR, CMP, PBNP #### [address] [address] Hematocrit (Bld) [Volume fraction] 38.3 % Normal 34.0-46.0 [facility] ([place] Comment on above: Performed By: #### T ARIELLEHS, GFR, CMP, PBNP #### [address] [address] Hgb 12.2 G/dL Normal 12.0-16.0 [facility] ([place] Comment on above: Performed By: #### T ROPHS, GFR, CMP, PBNP #### [address] [address] MCH (RBC) [Entitic mass] 30.9 pg Normal 27.0-33.0 [facility] ([place] Comment on above: Performed By: #### T ROPHS, GFR, CMP, PBNP #### [address] [address] MCHC 32.0 G/dL Normal 32.0-36.0 [facility] ([place] Comment on above: Performed By: #### T ROPHS, GFR, CMP, PBNP #### [address] [address] MCV (RBC) [Entitic vol] 96.7 fL Normal 80.0-99.0 [facility] ([place] Comment on above: Performed By: #### T GOMEZ, GFR, CMP, PBNP #### [address] [address] Platelet 285 10 3/mcL Normal 150-450 [facility] ([place] Comment on above: Performed By: #### T GOMEZ, GFR, CMP, PBNP #### [place] [address] [address] Platelet mean volume (Bld) [Entitic vol] 8.9 fL Normal 6.6-10.5 [facility] ([place] Comment on above: Performed By: #### T GOMEZ, GFR, CMP, PBNP #### [place] [address] [address] RBC 3.96 10 6/mcL Low 4.10-5.30 [facility] ([place] Comment on above: Performed By: #### T GOMEZ, GFR, CMP, PBNP #### [address] [address] WBC 11.6 10 3/mcL High 4.5-10.8 [facility] ([place] Comment on above: Performed By: #### T GOMEZ, GFR, CMP, PBNP #### [address] [address] LABORATORYOrdered By: SYSTEM SYSTEM on 05-05-2022 Basophils [...] Basophil, Absolute 0.0 10 3/mcL Normal 0.0-0.3 [facility] ([place] Comment on above: Performed By: #### T GOMEZ, GFR, CMP, PBNP #### [address] [address] Basophils/100 WBC (Bld) 0.2 % Normal 0.0-2.5 [facility] ([place] Comment on above: Performed By: #### T GOMEZ, GFR, CMP, PBNP #### [place] [address] [place], [place] [address] Eosinophil, Absolute 0.0 10 3/mcL Normal 0.0-0.7 [facility] ([place] Comment on above: Performed By: #### T ROPHS, GFR, CMP, PBNP #### [address] [address] Eosinophils/100 WBC (Bld) 0.0 % Normal 0.0-6.0 [facility] ([place] Comment on above: Performed By: #### T ROPHS, GFR, CMP, PBNP #### [address] [address] Lymphocyte, Absolute 0.6 10 3/mcL Low 0.9-4.3 [facility] ([place] Comment on above: Performed By: #### T ROPHS, GFR, CMP, PBNP #### [address] [address] Lymphocytes/100 WBC (Bld) 5.0 % Low 20.0-40.0 [facility] ([place] Comment on above: Performed By: #### T ROPHS, GFR, CMP, PBNP #### [address] [address] Monocyte, Absolute 0.3 10 3/mcL Normal 0.1-1.4 [facility] ([place] Comment on above: Performed By: #### T ROPHS, GFR, CMP, PBNP #### [address] [address] Monocytes/100 WBC (Bld) 2.4 % Normal 2.0-13.0 [facility] ([place]) Comment on above: Performed By: #### T ROPHS, GFR, CMP, PBNP #### [address] [address] Neutrophils/100 WBC (Bld) 92.4 % High 50.0-75.0 [facility] ([place] Comment on above: Performed By: #### T ROPHS, GFR, CMP, PBNP #### [address] [address] .GFRon 05-04-2022 GFR >60 Normal [facility] ([place] Comment on above: Result Comment: GFR Population [...] GOMEZ, GFR, CMP, PBNP #### Anthony [address] [address] GFR Non- >60 Normal [facility] ([place] Comment on above: Result Comment: GFR Population [...] GOMEZ, GFR, CMP, PBNP #### Anthony [address] [address] .MDWon 05-04-2022 Monocyte Distribution Width Not performed Normal 0.00-20.00 [facility] ([place] Comment on above: Result Comment: MDW testing performed only on adult ER patients between the ages of 18-89 years. Performed By: #### T GOMEZ, GFR, CMP, PBNP #### Anthony [address] [address] .NEUABSon 05-04-2022 Neutrophil, Absolute 10.5 10 3/mcL High 2.3-8.1 [facility] ([place] Comment on above: Performed By: #### T GOMEZ, GFR, CMP, PBNP #### [address] [address] BMPon 05-04-2022 BUN/Creatinine Ratio 24.7 ratio High 10.0-22.0 [facility] ([place] Comment on above: Performed By: #### T GOMEZ, GFR, CMP, PBNP #### [address] [address] Calcium [Mass/Vol] 8.7 mg/dL Normal 8.7-10.4 [facility] ([place] Comment on above: Performed By: #### T GOMEZ, GFR, CMP, PBNP #### [address] [address] Chloride [Moles/Vol] 108 mmol/L Normal 98-110 [facility] ([place] Comment on above: Performed By: #### T GOMEZ, GFR, CMP, PBNP #### [address] [address] CO2 [Moles/Vol] 30 mmol/L Normal 22-32 [facility] ([place] Comment on above: Performed By: #### T GOMEZ, GFR, CMP, PBNP #### [address] [address] Creatinine [Mass/Vol] 0.85 mg/dL Normal 0.50-1.20 [facility] ([place] Comment on above: Performed By: #### T ROPHS, GFR, CMP, PBNP #### [address] [address] Electrolyte Balance 3.0 mEq/L Low 4.0-15.0 [facility] ([place] Comment on above: Performed By: #### T ROPHS, GFR, CMP, PBNP #### [address] [address] Glucose [Mass/Vol] 150 mg/dL High 82-115 [facility] ([place] Comment on above: Performed By: #### T ROPHS, GFR, CMP, PBNP #### [address] [address] Potassium [Moles/Vol] 4.8 mmol/L Normal 3.5-5.0 [facility] ([place] Comment on above: Performed By: #### T ROPHS, GFR, CMP, PBNP #### [place] [id number] Sodium [Moles/Vol] 141 mmol/L Normal 136-145 [facility] ([place] Comment on above: Performed By: #### T ROPHS, GFR, CMP, PBNP #### [place] [address] Urea nitrogen [Mass/Vol] 21.0 mg/dL Normal 8.0-22.0 [facility] ([place] Comment on above: Performed By: #### T GOMEZ, GFR, CMP, PBNP #### [address] [address] CBCon 05-04-2022 Erythrocyte distribution width (RBC) [Ratio] 16.6 % High 11.5-15.5 [facility] ([place] Comment on above: Performed By: #### T ROPHS, GFR, CMP, PBNP #### [address] [address] Hematocrit (Bld) [Volume fraction] 39.9 % Normal 34.0-46.0 [facility] ([place] Comment on above: Performed By: #### T ROPHS, GFR, CMP, PBNP #### [place] [id number] Hgb 12.8 G/dL Normal 12.0-16.0 [facility] ([place] Comment on above: Performed By: #### T ROPHS, GFR, CMP, PBNP #### [address] [address] MCH (RBC) [Entitic mass] 30.8 pg Normal 27.0-33.0 [facility] ([place] Comment on above: Performed By: #### T ROPHS, GFR, CMP, PBNP #### [address] [address] MCHC 32.0 G/dL Normal 32.0-36.0 [facility] ([place] Comment on above: Performed By: #### T ROPHS, GFR, CMP, PBNP #### [address] [address] MCV (RBC) [Entitic vol] 96.4 fL Normal 80.0-99.0 [facility] ([place] Comment on above: Performed By: #### T ROPHS, GFR, CMP, PBNP #### [place] [id number] Platelet 282 10 3/mcL Normal 150-450 [facility] ([place] Comment on above: Performed By: #### T GOMEZ, GFR, CMP, PBNP #### [place] [address] Platelet mean volume (Bld) [Entitic vol] 8.9 fL Normal 6.6-10.5 [facility] ([place] Comment on above: Performed By: #### T GOMEZ, GFR, CMP, PBNP #### [address] [address] RBC 4.14 10 6/mcL Normal 4.10-5.30 [facility] ([place] Comment on above: Performed By: #### T ROPHS, GFR, CMP, PBNP #### [place] [id number] WBC 11.4 10 3/mcL High 4.5-10.8 [facility] ([place]) Comment on above: Performed By: #### T ROPHS, GFR, CMP, PBNP #### [address] [address] LABORATORYOrdered By: SYSTEM SYSTEM on 05-04-2022 Basophils [...] Basophil, Absolute 0.1 10 3/mcL Normal 0.0-0.3 [facility] ([place]) Comment on above: Performed By: #### T ROPHS, GFR, CMP, PBNP #### [place] [address] [place], [place] [address] Basophils/100 WBC (Bld) 0.7 % Normal 0.0-2.5 [facility] ([place] Comment on above: Performed By: #### T ROPHS, GFR, CMP, PBNP #### [address] [address] Eosinophil, Absolute 0.0 10 3/mcL Normal 0.0-0.7 [facility] ([place] Comment on above: Performed By: #### T ROPHS, GFR, CMP, PBNP #### [address] [address] Eosinophils/100 WBC (Bld) 0.3 % Normal 0.0-6.0 [facility] ([place] Comment on above: Performed By: #### T ROPHS, GFR, CMP, PBNP #### [address] [address] Lymphocyte, Absolute 2.3 10 3/mcL Normal 0.9-4.3 [facility] ([place] Comment on above: Performed By: #### T ROPHS, GFR, CMP, PBNP #### [address] [address] Lymphocytes/100 WBC (Bld) 25.2 % Normal 20.0-40.0 [facility] ([place] Comment on above: Performed By: #### T ROPHS, GFR, CMP, PBNP #### [address] [address] Monocyte, Absolute 1.0 10 3/mcL Normal 0.1-1.4 [facility] ([place] Comment on above: Performed By: #### T ROPHS, GFR, CMP, PBNP #### [address] [address] Monocytes/100 WBC (Bld) 10.8 % Normal 2.0-13.0 [facility] ([place] Comment on above: Performed By: #### T ROPHS, GFR, CMP, PBNP #### [address] [address] Neutrophils/100 WBC (Bld) 63.0 % Normal 50.0-75.0 [facility] ([place] Comment on above: Performed By: #### T GOMEZ, GFR, CMP, PBNP #### Anthony [address] [address] .GFRon 05-03-2022 GFR Non- >60 Normal [facility] ([place] Comment on above: Result Comment: GFR Population [...] #### T GOMEZ, GFR, CMP, PBNP #### [address] [address] GFR >60 Normal [facility] ([place] Comment on above: Result Comment: GFR Population [...] GOMEZ, GFR, CMP, PBNP #### Anthony [address] [address] .MDWon 05-03-2022 Monocyte Distribution Width Not performed Normal 0.00-20.00 [facility] ([place] Comment on above: Result Comment: MDW testing performed only on adult ER patients between the ages of 18-89 years. Performed By: #### T ROPHS, GFR, CMP, PBNP #### [address] [address] .NEUABSon 05-03-2022 Neutrophil, Absolute 5.6 10 3/mcL Normal 2.3-8.1 [facility] ([place] Comment on above: Performed By: #### T ROPHS, GFR, CMP, PBNP #### [address] [address] BMPon 05-03-2022 BUN/Creatinine Ratio 17.9 ratio Normal 10.0-22.0 [facility] ([place]) Comment on above: Performed By: #### T ROPHS, GFR, CMP, PBNP #### [address] [address] Calcium [Mass/Vol] 8.7 mg/dL Normal 8.7-10.4 [facility] ([place] Comment on above: Performed By: #### T ROPHS, GFR, CMP, PBNP #### [address] [address] Chloride [Moles/Vol] 110 mmol/L Normal 98-110 [facility] ([place] Comment on above: Performed By: #### T ROPHS, GFR, CMP, PBNP #### [address] [address] CO2 [Moles/Vol] 28 mmol/L Normal 22-32 [facility] ([place] Comment on above: Performed By: #### T ROPHS, GFR, CMP, PBNP #### [address] [address] Creatinine [Mass/Vol] 0.84 mg/dL Normal 0.50-1.20 [facility] ([place]) Comment on above: Performed By: #### T ROPHS, GFR, CMP, PBNP #### [address] [address] Electrolyte Balance 6.0 mEq/L Normal 4.0-15.0 [facility] ([place] Comment on above: Performed By: #### T ROPHS, GFR, CMP, PBNP #### [address] [address] Glucose [Mass/Vol] 96 mg/dL Normal 82-115 [facility] ([place] Comment on above: Performed By: #### T ROPHS, GFR, CMP, PBNP #### [address] [address] Potassium [Moles/Vol] 4.5 mmol/L Normal 3.5-5.0 [facility] ([place]) Comment on above: Performed By: #### T ROPHS, GFR, CMP, PBNP #### [address] [address] Sodium [Moles/Vol] 144 mmol/L Normal 136-145 [facility] ([place] Comment on above: Performed By: #### T ARIELLEHS, GFR, CMP, PBNP #### [address] [address] Urea nitrogen [Mass/Vol] 15.0 mg/dL Normal 8.0-22.0 [facility] ([place] Comment on above: Performed By: #### T ROPHS, GFR, CMP, PBNP #### [address] [address] CBCon 05-03-2022 Erythrocyte distribution width (RBC) [Ratio] 16.3 % High 11.5-15.5 [facility] ([place] Comment on above: Performed By: #### T ROPHS, GFR, CMP, PBNP #### [address] [address] Hematocrit (Bld) [Volume fraction] 40.5 % Normal 34.0-46.0 [facility] ([place] Comment on above: Performed By: #### T ROPHS, GFR, CMP, PBNP #### [address] [address] Hgb 13.2 G/dL Normal 12.0-16.0 [facility] ([place] Comment on above: Performed By: #### T ROPHS, GFR, CMP, PBNP #### [address] [address] MCH (RBC) [Entitic mass] 31.4 pg Normal 27.0-33.0 [facility] ([place] Comment on above: Performed By: #### T ROPHS, GFR, CMP, PBNP #### [address] [address] MCHC 32.6 G/dL Normal 32.0-36.0 [facility] ([place] Comment on above: Performed By: #### T ROPHS, GFR, CMP, PBNP #### [place] [address] [address] MCV (RBC) [Entitic vol] 96.1 fL Normal 80.0-99.0 [facility] ([place] Comment on above: Performed By: #### T ROPHS, GFR, CMP, PBNP #### [address] [address] Platelet 290 10 3/mcL Normal 150-450 [facility] ([place] Comment on above: Performed By: #### T ROPHS, GFR, CMP, PBNP #### [address] [address] Platelet mean volume (Bld) [Entitic vol] 8.9 fL Normal 6.6-10.5 [facility] ([place] Comment on above: Performed By: #### T ROPHS, GFR, CMP, PBNP #### [address] [address] RBC 4.21 10 6/mcL Normal 4.10-5.30 [facility] ([place] Comment on above: Performed By: #### T ROPHS, GFR, CMP, PBNP #### [address] [address] WBC 8.9 10 3/mcL Normal 4.5-10.8 [facility] ([place]) Comment on above: Performed By: #### T ROPHS, GFR, CMP, PBNP #### [facility] [address] [place], [place] [address] LABORATORYOrdered By: SYSTEM SYSTEM on 05-03-2022 Basophils [...] 05-03-2022 Magnesium [Mass/Vol] 1.8 mg/dL Normal 1.6-2.4 [facility] ([place] Comment on above: Performed By: #### T ROPHS, GFR, CMP, PBNP #### [address] [address] .Auto Diffon 05-02-2022 Basophil, Absolute 0.1 10 3/mcL Normal 0.0-0.2 [facility] ([place] Comment on above: Performed By: #### T ROPHS, GFR, CMP, PBNP #### [address] [address] Basophils/100 WBC (Bld) 0.9 % Normal 0.0-2.5 [facility] ([place] Comment on above: Performed By: #### T ROPHS, GFR, CMP, PBNP #### [address] [address] Eosinophil, Absolute 0.1 10 3/mcL Normal 0.0-0.4 [facility] ([place] Comment on above: Performed By: #### T ROPHS, GFR, CMP, PBNP #### [address] [address] Eosinophils/100 WBC (Bld) 0.8 % Normal 0.0-7.0 [facility] ([place] Comment on above: Performed By: #### T ROPHS, GFR, CMP, PBNP #### [address] [address] Lymphocyte, Absolute 2.1 10 3/mcL Normal 0.8-3.9 [facility] ([place] Comment on above: Performed By: #### T ROPHS, GFR, CMP, PBNP #### [address] [address] Lymphocytes/100 WBC (Bld) 16.7 % Normal 10.0-50.0 [facility] ([place] Comment on above: Performed By: #### T ROPMARILEE, GFR, CMP, PBNP #### [address] [address] Monocyte, Absolute 0.9 10 3/mcL Normal 0.2-1.0 [facility] ([place] Comment on above: Performed By: #### T ROPHS, GFR, CMP, PBNP #### [address] [address] Monocytes/100 WBC (Bld) 7.0 % Normal 1.7-13.0 [facility] ([place]) Comment on above: Performed By: #### T GOMEZ, GFR, CMP, PBNP #### [address] [address] Neutrophils/100 WBC (Bld) 74.6 % Normal 37.0-80.0 [facility] ([place] Comment on above: Performed By: #### T GOMEZ, GFR, CMP, PBNP #### [address] [address] .GFRon 05-02-2022 GFR 61 ml/min/1.73sqm Normal [facility] ([place] Comment on above: Result Comment: GFR Population [...] #### T ROPHS, GFR, CMP, PBNP #### [address] [address] GFR Non- 50 ml/min/1.73sqm Normal [facility] ([place] Comment on above: Result Comment: GFR Population [...] #### T GOMEZ, GFR, CMP, PBNP #### [address] [address] .MDWon 05-02-2022 Monocyte Distribution Width 17.05 Normal 0.00-20.00 [facility] ([place] Comment on above: Result Comment: For ED adult patients suspected of sepsis, MDW<=20.0 does not rule out sepsis or risk of sepsis Performed By: #### T GOMEZ, GFR, CMP, PBNP #### [address] [address] .NEUABSon 05-02-2022 Neutrophil, Absolute 9.4 10 3/mcL High 2.9-6.2 [facility] ([place] Comment on above: Performed By: #### T GOMEZ, GFR, CMP, PBNP #### [address] [address] BMPon 05-02-2022 BUN/Creatinine Ratio 9 ratio Normal 7-27 [facility] ([place] Comment on above: Performed By: #### T GOMEZ, GFR, CMP, PBNP #### [address] [address] Calcium [Mass/Vol] 8.8 mg/dL Normal 8.4-10.2 [facility] ([place] Comment on above: Performed By: #### T ROPHS, GFR, CMP, PBNP #### [address] [address] Chloride [Moles/Vol] 102 mmol/L Normal 98-107 [facility] ([place] Comment on above: Performed By: #### T ROPHS, GFR, CMP, PBNP #### [address] [address] CO2 [Moles/Vol] 29 mmol/L Normal 23-31 [facility] ([place] Comment on above: Performed By: #### T ROPHS, GFR, CMP, PBNP #### [address] [address] Creatinine [Mass/Vol] 1.09 mg/dL High 0.55-1.02 [facility] ([place] Comment on above: Performed By: #### T GOMEZ, GFR, CMP, PBNP #### [address] [address] Electrolyte Balance 7.0 mEq/L Normal 4.0-15.0 [facility] ([place] Comment on above: Performed By: #### T GOMEZ, GFR, CMP, PBNP #### [address] [address] Glucose [Mass/Vol] 194 mg/dL High 80-115 [facility] ([place]) Comment on above: Performed By: #### T ROPHS, GFR, CMP, PBNP #### [address] [address] Potassium [Moles/Vol] 4.1 mmol/L Normal 3.5-5.1 [facility] ([place]) Comment on above: Performed By: #### T ROPHS, GFR, CMP, PBNP #### [address] [address] Sodium [Moles/Vol] 138 mmol/L Normal 136-145 [facility] ([place] Comment on above: Performed By: #### T ROPHS, GFR, CMP, PBNP #### [place] [id number] Urea nitrogen [Mass/Vol] 10 mg/dL Normal 7-18 [facility] ([place] Comment on above: Performed By: #### T ROPHS, GFR, CMP, PBNP #### [address] [address] CBCon 05-02-2022 Erythrocyte distribution width (RBC) [Ratio] 17.0 % High 11.5-14.5 [facility] ([place] Comment on above: Performed By: #### T ROPHS, GFR, CMP, PBNP #### [place] [address] Hematocrit (Bld) [Volume fraction] 45.4 % Normal 37.0-47.0 [facility] ([place] Comment on above: Performed By: #### T ROPHS, GFR, CMP, PBNP #### [place] [address] Hgb 14.9 G/dL Normal 12.0-16.0 [facility] ([place] Comment on above: Performed By: #### T ROPHS, GFR, CMP, PBNP #### [place] [address] MCH (RBC) [Entitic mass] 31.4 pg High 27.0-31.2 [facility] ([place] Comment on above: Performed By: #### T ROPHS, GFR, CMP, PBNP #### [place] [address] MCHC 32.9 G/dL Low 33.0-37.0 [facility] ([place] Comment on above: Performed By: #### T ROPHS, GFR, CMP, PBNP #### [place] [phone] MCV (RBC) [Entitic vol] 95.5 fL High 80.0-94.0 [facility] ([place] Comment on above: Performed By: #### T ROPHS, GFR, CMP, PBNP #### [address] [address] Platelet 351 10 3/mcL Normal 130-400 [facility] ([place] Comment on above: Performed By: #### T ROPHS, GFR, CMP, PBNP #### [address] [address] Platelet mean volume (Bld) [Entitic vol] 9.0 fL Normal 7.4-10.4 [facility] ([place] Comment on above: Performed By: #### T ROPHS, GFR, CMP, PBNP #### [place] [address] [address] RBC 4.76 10 6/mcL Normal 4.20-5.40 [facility] ([place] Comment on above: Performed By: #### T ROPHS, GFR, CMP, PBNP #### [place] [address] WBC 12.6 10 3/mcL High 4.6-10.8 [facility] ([place] Comment on above: Performed By: #### T ROPHS, GFR, CMP, PBNP #### [address] [address] [id number] 05-02-2022 Date of Onset [id number] Invalid Interpretation Code [facility] ([place] Comment on above: Performed By: #### T ROPHS, GFR, CMP, PBNP #### [address] [address] Employed in Healthcare No Normal [facility] ([place]) Comment on above: Performed By: #### T ROPHS, GFR, CMP, PBNP #### [place] [address] [address] First Test No [facility] ([place]) Comment on above: Performed By: #### T ROPHS, GFR, CMP, PBNP #### [place] [address] [address] Hospitalized Yes Normal [facility] ([place] Comment on above: Performed By: #### T ROPHS, GFR, CMP, PBNP #### [place] [address] ICU No Normal [facility] ([place] Comment on above: Performed By: #### T ROPHS, GFR, CMP, PBNP #### [place] [address] Not [facility] ([place] Comment on above: Performed By: #### T ROPHS, GFR, CMP, PBNP #### [place] [address] Resides in Congregate Care Setting No Normal [facility] ([place] Comment on above: Performed By: #### T ROPHS, GFR, CMP, PBNP #### [place] [address] SARS-CoV-2 (COVID-19) RNA IVANA+probe Ql (Unsp spec) Negative Normal Negative [facility] ([place] Comment on above: Performed By: #### T ROPHS, GFR, CMP, PBNP #### [place] [address] SARS-CoV-2 (COVID-19) RNA IVANA+probe Ql (Unsp spec) Normal [facility] ([place] Comment on above: Result Comment: Nega tive [...] #### T ROPHS, GFR, CMP, PBNP #### [facility] [address], [place] [address] Symptomatic as Defined by CDC Yes Normal [facility] ([place] Comment on above: Performed By: #### T ARIELLEHS, GFR, CMP, PBNP #### [facility] [address], [place] [address] LABORATORYOrdered By: Gina Feliz on 05-02-2022 Blood Glucose Testing Reason Routine (05/02/22 9:38 AM) [facility] Work Phone: Glucose [Mass/Vol] 156 mg/dL Invalid Interpretation Code 82 - 115 mg/dL [facility] Work Phone: LABORATORYOrdered By: Lisa Casas [...] B (Bld) [Mass/Vol] 344 pg/mL High 0-125 [facility] ([place] Comment on above: Result Comment: NT-p roBNP results of less than 300 pg/mL effectively rules out acute congestive heart failure with 99% negative predictive value. Performed By: #### T GOMEZ, GFR, CMP, PBNP #### [address] [address] TROPHSon 05-02-2022 Troponin I High Sensitivity 13.0 ng/L Normal 0.0-51.4 [facility] ([place]) Comment on above: Performed By: #### T GOMEZ, GFR, CMP, PBNP #### [address] [address] XR CHEST 1 VIEWon 05-02-2022 XR CHEST [...] 05/02/2022 5:25:03 AM Ordering Provider: EMMANUEL KILLIAN [facility] ([place]) XR ELBOW 2V AP/LAT RTon 11-3 XR [...] healing of fracture of the olecranon process. Inspector Plug Seam: SRAVANI Transcribe Date/Time: Oct 10 2021 2:44P Dictated by : ERENDIRA PAREDES MD This examination was interpreted and the report reviewed and electronically signed by: ERENDIRA PAREDES MD on Oct 10 2021 2:51PM EST [id number] [facility] 09-28-2021 [facility] Telephone (AGCARDPOB ) STEVEN KOENIG ([id number]) 1955 F Date Time Provider Department 09/28/21 TRACY RAMIRES During your visit today, we recorded the following information about you: Mely Trinidad LPN 09/28/2021 10:10 AM Signed ----- Message from Tracy Ramires APRN.SERVICE DELIVERY DIRECTOR sent at 09/28/2021 8:08 AM EST ----- [...] Date Reviewed: 09/28/2021 Reviewed by: Tracy Ramires APRN.SERVICE DELIVERY DIRECTOR - Fully Assessed Reason for Visit: Results [...] exertion [R06.00] 08/26/2021 Coronary artery disease involving [place] tolbert*09/27/2021 Encounter Status:Closed by MELY TRINIDAD on 01/04/22 Normal [facility] CBC panel Auto (Bld)on 09-27 Erythrocyte distribution width (RBC) [Ratio] 15.3 % High 11.5-15.0 [facility] Comment on above: Order Comment: Speci men Type: BLOOD SPECIMEN Performed By: #### 5 8410-2 ####[facility] LABORATORYCLIA [id number] [address] STATES OF [facility] Hematocrit (Bld) [Volume fraction] 47.2 % High 36.0-46.0 [facility] Comment on above: Order Comment: Speci men Type: BLOOD SPECIMEN Performed By: #### 5 8410-2 ####[facility] LABORATORYCLIA [id number] [address] [place] Hemoglobin (Bld) [Mass/Vol] 14.5 g/dL Normal 11.5-15.5 [facility] Comment on above: Order Comment: Speci men Type: BLOOD SPECIMEN Performed By: #### 5 8410-2 ####[facility] LABORATORYCLIA [id number] [address] MCH (RBC) [Entitic mass] 31.7 pg Normal 26.0-34.0 [facility] Comment on above: Order Comment: Speci men Type: BLOOD SPECIMEN Performed By: #### 5 8410-2 ####[facility] LABORATORYCLIA [id number] [address] MCHC (RBC) [Mass/Vol] 30.7 g/dL Normal 30.5-36.0 [facility] Comment on above: Order Comment: Speci men Type: BLOOD SPECIMEN Performed By: #### 5 8410-2 ####[facility] LABORATORYCLIA [id number] [address] MCV (RBC) [Entitic vol] 103.3 fL High 80.0-100.0 [facility] Comment on above: Order Comment: Speci men Type: BLOOD SPECIMEN Performed By: #### 5 8410-2 ####[facility] LABORATORYCLIA [id number] [address] Nucleated RBC (Bld) [#/Vol] 10*3/uL Normal <0.01 [facility] Comment on above: Order Comment: Speci men Type: BLOOD SPECIMEN Performed By: #### 5 8410-2 ####[facility] LABORATORYCLIA [id number] [address] Platelet mean volume (Bld) [Entitic vol] 10.0 fL Normal 9.0-12.7 [facility] Comment on above: Order Comment: Speci men Type: BLOOD SPECIMEN Performed By: #### 5 8410-2 ####[facility] LABORATORYCLIA [id number] [address] Platelets (Bld) [#/Vol] 398 10*3/uL Normal 150-400 [facility] Comment on above: Order Comment: Speci men Type: BLOOD SPECIMEN Performed By: #### 5 8410-2 ####[facility] LABORATORYCLIA [id number] [address] RBC (Bld) [#/Vol] 4.57 10*6/uL Normal 3.90-5.20 [facility] Comment on above: Order Comment: Speci men Type: BLOOD SPECIMEN Performed By: #### 5 8410-2 ####[facility] LABORATORYCLIA [id number] [address] WBC (Bld) [#/Vol] 7.70 10*3/uL Normal 3.70-11.00 [facility] Comment on above: Order Comment: Speci men Type: BLOOD SPECIMEN Performed By: #### 5 8410-2 ####[facility] LABORATORYCLIA [id number] [address] CNOVon 09-27-2021 CNOV Office Visit (AGCARDPOB) STEVEN KOENIG ([id number]) 1955 F Date Time Provider Department 09/27/21 [...] seen by myself on 06/12/2021 at our [place] office. Stress testing was done d/t symptoms and need for cardiac clearance. TID ratio was elevated so she was recommended a [facility] and ultimately had PCI of the [...] Alcohol use disorder 01/18/2016 Dr. Angie Jones, [facility] - Anxiety 12/14/2015 - Bipolar affective disorder, currently active ([facility]) 01/18/2016 Dr. Angie Jones, [facility] - Chronic bronchitis ([facility]) 07/26/2016 - Closed skull fracture ([facility]) 1994 [facility] - Coronary artery disease - DDD (degenerative disc disease), cervical - Endometriosis 2007 - Essential hypertension 12/14/2015 - GERD (gastroesophageal reflux disease) 03/13/2019 - History of colon polyps - History of gastric ulcer 12/14/2015 - HLD (hyperlipidemia) - Injury of left facial nerve 1994 - PAD (peripheral artery disease) ([facility]) 09/28/2019 - Recurrent major depression in partial remission ([facility]) 12/14/2015 - S/P drug eluting coronary stent placement 08/25/2021 LAD and Dg2 - Spinal stenosis PAST SURGICAL HISTORY Procedure Laterality Date - APPENDECTOMY 1979 - COLONOSCOP W/ OR W/O [facility] [place] [facility] 2010 Colonoscopy - COLONOSCOPY 04/03/2017 diverticulosis- repeat 10 years - [place] FACIAL NERVE,TOTAL Left 1989 [facility] - EGD 04/03/2017 Gastritis, duodenitis, [...] to treat (more content not included)... Normal [facility] LIPID PANEL BASICon 09-27-20 21 Cholesterol [Mass/Vol] 189 mg/dL Normal <200 [facility] Comment on above: Order Comment: Speci men Type: BLOOD SPECIMEN Result Comment: <200 mg/dL, Desirable 200-239 mg/dL, Borderline high >239 mg/dL, High Performed By: #### L IPB #### [facility] CLIA [id number] [address] Cholesterol in HDL [Mass/Vol] 70 mg/dL Normal >39 [facility] Comment on above: Order Comment: Speci men Type: BLOOD SPECIMEN Result Comment: 40-5 9 mg/dL, Acceptable >59 mg/dL, High: Negative risk factor for coronary heart disease <40 mg/dL, Low: Positive risk factor for coronary heart disease Performed By: #### L IPB #### [facility] CLIA [id number] [address] Cholesterol in LDL [Mass/Vol] 101 mg/dL High <100 [facility] Comment on above: Order Comment: Speci men Type: BLOOD SPECIMEN Result Comment: <100 mg/dL, Optimal 100-129 mg/dL, Near optimal/above optimal 130-159 mg/dL, Borderline high 160-189 mg/dL, High >189 mg/dL, Very high Secondary prevention optimal LDL Cholesterol levels are recommended to be < 70 mg/dL Performed By: #### L IPB #### [facility] CLIA [id number] [address] Cholesterol in LDL/Cholesterol in HDL [Mass ratio] 1.44 {ratio} Normal <2.54 [facility] Comment on above: Order Comment: Speci men Type: BLOOD SPECIMEN Result Comment: Refe rence: 1. National Cholesterol Education Program ATP III Guideline At-A-Glance Quick Desk Reference: National Heart, Lung, and Blood [place]. National Institutes of Health. 2001: NIH Publication No. 01-3305. 2. An International Atherosclerosis Society position paper: global recommendations for the management of dyslipidemia: executive summary, Atherosclerosis. 2014: 232(2):410-413. Performed By: #### L IPB #### [facility] CLIA [id number] [address] Cholesterol in VLDL [Mass/Vol] 18 mg/dL Normal <30 [facility] Comment on above: Order Comment: Speci men Type: BLOOD SPECIMEN Performed By: #### L IPB #### [facility] CLIA [id number] [address] Cholesterol non HDL [Mass/Vol] 119 mg/dL Normal <130 [facility] Comment on above: Order Comment: Speci men Type: BLOOD SPECIMEN Result Comment: <130 mg/dL, Optimal 130-159 mg/dL, Near optimal/above optimal 160-189 mg/dL, Borderline high 190-219 mg/dL, High >219 mg/dL, Very high Secondary prevention optimal non HDL Cholesterol levels are recommended to be <100 mg/dL Performed By: #### L IPB #### [facility] CLIA [id number] [address] Cholesterol.total/Izabella sterol in HDL [Mass ratio] 2.70 {ratio} Normal <5.10 [facility] Comment on above: Order Comment: Speci men Type: BLOOD SPECIMEN Performed By: #### L IPB #### [facility] CLIA [id number] [address] FASTING TIME 12 hrs Normal [facility] Comment on above: Order Comment: Speci men Type: BLOOD SPECIMEN Performed By: #### L IPB #### [facility] CLIA [id number] [address] Triglyceride [Mass/Vol] 88 mg/dL Normal <150 [facility] Comment on above: Order Comment: Speci men Type: BLOOD SPECIMEN Result Comment: <150 mg/dL, Normal 150-199 mg/dL, Borderline high 200-499 mg/dL, High >499 mg/dL, Very high Performed By: #### L IPB #### [facility] CLIA [id number] [address] Frank 09-01-2021 JEOVANNY Telephone (EARNESTINE) CLARISSESTEVEN NOVOA ([id number]) 1955 F Date Time Provider Department 09/01/21 [...] none*09/28/2019 07/07/2020 PAD (peripheral artery disease) ([facility]) [I73.9] 09/28/2019 Anxiety and depression [F41.9, F32.A] 10/06/2019 Hypomagnesemia [E83.42] 10/22/2019 10/23/2019 Asthma [J45.909] 07/07/2020 07/07/2020 Prediabetes [R73.03] 02/04/2021 Chest pain [R07.9] 05/08/2021 Other chest pain [R07.89] 05/08/2021 Stenosis of carotid artery [I65.29] 05/08/2021 Mixed hyperlipidemia [E78.2] 05/08/2021 Abnormal stress test [R94.39] 08/26/2021 Dyspnea on exertion [R06.00] 08/26/2021 Encounter Status:Closed by TRACY RAMIRES on 09/01/21 [facility] CNPN Telephone (AKCRL) STEVEN KOENIG ([id number]) 1955 F Date Time Provider Department 09/01/21 GUILLERMO MCGILL During your visit today, we recorded the following information about you: Guillermo Mcgill E Commerce Strategist 09/01/2021 10:44 AM Signed Faxed to [place] based on location. Guillermo Mcgill CEP, Cardiopulmonary Rehab [phone] Allergies As of Date: 09/01/2021 (No Known Allergies) Date Reviewed: 08/31/2021 Reviewed by: Babatunde Lomeli MD - Fully Assessed Reason for Visit: Cardiac Rehab [7839] Prescriptions as of 09/01/2021 - oxyCODONE-acetaminophen (PERCOCET) [...] by GUILLERMO MCGILL on [facility]/01/21 [facility] HNO ID: [id number] Author: Claude Thao MD Service: Interventional Cardiology [...] 90 tab (more content not included)... Normal [facility] BRIEF OP NOTon 08-25-2021 BRIEF OP NOT HNO ID: [id number] Author: Juan Ramon Pichardo MD Service: Cardiovascular [...] LAD portion of the stent 3.7mm, with mosque of blood flow, no residual stenosis. No complications. Recommend: ASA/Plavix Continue other guideline directed medical therapy Juan Ramon Kemp MD Medical Office Receptionist of Internal Medicine [facility] Section of Interventional Cardiology Managing Broker of Structural Heart Disease [address], [address] [place] [address] Facsimile: [phone] Email: [email or web address] Normal [facility] Basic metabolic 2000 panelon 08-25-2021 Anion gap [Moles/Vol] 14 mmol/L Normal 9-18 [facility] Comment on above: Order Comment: Speci men Type: BLOOD SPECIMEN Performed By: #### 2 4321-2 ####[facility] LABORATORYCLIA [id number] [place] [address] [place] Calcium [Mass/Vol] 9.2 mg/dL Normal 8.5-10.2 [facility] Comment on above: Order Comment: Speci men Type: BLOOD SPECIMEN Performed By: #### 2 4321-2 ####[facility]ORATORYCLIA [id number] [address] Chloride [Moles/Vol] 102 mmol/L Normal 97-105 [facility] Comment on above: Order Comment: Speci men Type: BLOOD SPECIMEN Performed By: #### 2 4321-2 ####[facility]ORATORYCLIA [id number] [address] CO2 [Moles/Vol] 21 mmol/L Low 22-30 [facility] Comment on above: Order Comment: Speci men Type: BLOOD SPECIMEN Performed By: #### 2 4321-2 ####[facility]ORATORYCLIA [id number] [address] Creatinine [Mass/Vol] 0.72 mg/dL Normal 0.58-0.96 [facility] Comment on above: Order Comment: Speci men Type: BLOOD SPECIMEN Performed By: #### 2 4321-2 ####[facility] LABORATORYCLIA [id number] [address] GFR/1.73 sq M.predicted MDRD (S/P/Bld) [Vol rate/Area] mL/min/{1.73_m2} Normal [facility] Comment on above: Order Comment: Speci men [...] actual GFR. Performed By: #### 2 4321-2 ####[facility] LABORATORYCLIA [id number] [address] [place] Glucose [Mass/Vol] 92 mg/dL Normal 74-99 [facility] Comment on above: Order Comment: Speci men Type: BLOOD SPECIMEN Result Comment: The [place] Diabetes Association (ADA) provides guidance for cutoff [...] Standards of Medical Care in Diabetes 2016, [place] Diabetes Association. Diabetes Care. 2016.39(Suppl 1). Performed By: #### 2 4321-2 ####[facility] LABORATORYCLIA [id number] [address] [place] Potassium [Moles/Vol] 4.7 mmol/L Normal 3.7-5.1 [facility] Comment on above: Order Comment: Speci men Type: BLOOD SPECIMEN Performed By: #### 2 4321-2 ####[facility] LABORATORYCLIA [id number] [address] [place] Sodium [Moles/Vol] 137 mmol/L Normal 136-144 [facility] Comment on above: Order Comment: Speci men Type: BLOOD SPECIMEN Performed By: #### 2 4321-2 ####[facility] LABORATORYCLIA [id number] [place] [address] [place] Urea nitrogen [Mass/Vol] 11 mg/dL Normal 7-21 [facility] Comment on above: Order Comment: Speci men Type: BLOOD SPECIMEN Performed By: #### 2 4321-2 ####[facility] LABORATORYCLIA [id number] [address] [place] CBC panel Auto (Bld)on 08-25 Erythrocyte distribution width (RBC) [Ratio] 15.4 % High 11.5-15.0 [facility] Comment on above: Order Comment: Speci men Type: BLOOD SPECIMEN Performed By: #### 5 8410-2 #### [facility] CLIA [id number] [address] Hematocrit (Bld) [Volume fraction] 46.7 % High 36.0-46.0 [facility] Comment on above: Order Comment: Speci men Type: BLOOD SPECIMEN Performed By: #### 5 8410-2 #### [facility] CLIA [id number] [address] Hemoglobin (Bld) [Mass/Vol] 14.9 g/dL Normal 11.5-15.5 [facility] Comment on above: Order Comment: Speci men Type: BLOOD SPECIMEN Performed By: #### 5 8410-2 #### [facility] CLIA [id number] [address] MCH (RBC) [Entitic mass] 31.6 pg Normal 26.0-34.0 [facility] Comment on above: Order Comment: Speci men Type: BLOOD SPECIMEN Performed By: #### 5 8410-2 #### [facility] CLIA [id number] [address] MCHC (RBC) [Mass/Vol] 31.9 g/dL Normal 30.5-36.0 [facility] Comment on above: Order Comment: Speci men Type: BLOOD SPECIMEN Performed By: #### 5 8410-2 #### [facility] CLIA [id number] [address] MCV (RBC) [Entitic vol] 98.9 fL Normal 80.0-100.0 [facility] Comment on above: Order Comment: Speci men Type: BLOOD SPECIMEN Performed By: #### 5 8410-2 #### [facility] CLIA [id number] [address] Nucleated RBC (Bld) [#/Vol] 10*3/uL Normal <0.01 [facility] Comment on above: Order Comment: Speci men Type: BLOOD SPECIMEN Performed By: #### 5 8410-2 #### [facility] CLIA [id number] [address] Platelet mean volume (Bld) [Entitic vol] 10.4 fL Normal 9.0-12.7 [facility] Comment on above: Order Comment: Speci men Type: BLOOD SPECIMEN Performed By: #### 5 8410-2 #### [facility] CLIA [id number] [address] Platelets (Bld) [#/Vol] 375 10*3/uL Normal 150-400 [facility] Comment on above: Order Comment: Speci men Type: BLOOD SPECIMEN Performed By: #### 5 8410-2 #### [facility] CLIA [id number] [address] RBC (Bld) [#/Vol] 4.72 10*6/uL Normal 3.90-5.20 [facility] Comment on above: Order Comment: Speci men Type: BLOOD SPECIMEN Performed By: #### 5 8410-2 #### [facility] CLIA [id number] [address] WBC (Bld) [#/Vol] 10.76 10*3/uL Normal 3.70-11.00 [facility] Comment on above: Order Comment: Speci men Type: BLOOD SPECIMEN Performed By: #### 5 8410-2 #### [facility] CLIA [id number] [address] HISTORY PHYSICALon HISTORY PHYSICAL HNO ID: [id number] Author: Juan Ramon Pichardo MD Service: Cardiovascular [...] August 25, 2021 TIME: 9:00 AM Normal [facility] CNPNon 08-15-2021 JEOVANNY Telephone (AGCARDPOB ) STEVEN KOENIG ([id number]) 1955 F Date Time Provider Department 08/15/21 TRACY RAMIRES During your visit today, we recorded the following information about you: Suzy Cordero RN 08/15/2021 8:11 AM Signed ----- Message from Tracy Ramires APRN.SERVICE DELIVERY DIRECTOR sent at 08/15/2021 7:51 AM EDT ----- [...] on: 08/15/2021 02:21 PM Modules accepted: Orders Suyz Cordero RN 08/16/2021 9:26 AM Signed Se Prep for procedure encounter. Suzy Cordero RN Allergies As of Date: 08/15/2021 (No Known Allergies) Date Reviewed: 08/14/2021 Reviewed by: Babatunde Lomeli MD - Fully Assessed Reason for Visit: Results [95] Primary Visit Diagnosis:Abnormal stress test [R94.39] Other Visit Diagnoses:Dyspnea on exertion [R06.00] Chest pain, unspecified type [R07.9] Pre-operative cardiovascular examination [Z01.810] Order(s):CARDIAC ENGINE ROOM OPERATOR ORDER [[id number]] Order #: [id number]: 1 CBC [[facility]] Order #: [id number] FUTURE Prescriptions as of 08/16/2021 - oxyCODONE-acetaminophen [...] depression i (more content not included)... Normal [facility] NM CARDIAC PERF STRESS/PHARM on 08-14-2021 NM CARDIAC PERF STRESS/PHARM * * *Final Report* * * DATE OF EXAM: Aug 14 2021 4:02PM KELI 0006 - NM CARDIAC PERF STRESS/PHARM / PROCEDURE REASON: multiple diagnoses * * * * Physician Interpretation * * * * Stress Lap Cutter Report: [facility] Date of service: 08/14/2021 3:00:40 PM [...] 60 minutes later. See administered doses below. [facility] Date of service: 08/14/2021 3:00:40 PM [...] of scarring. Final ---- Stress ECG Report: [facility] Date of service: 08/14/2021 3:00:40 PM Ordering physician: TRACY RAMIRES Specialist: Grace Sagastume Patrol Sergeant Sheriff'S Office: Guera Fowler Stress ECG interpreting physician: Armando [...] 146/80 mmHg. The double product achieved was [address]. Indication: Shortness of breath Medical History and [...] / 80 mmHg Rate Pressure Product (RPP): 85167 St (more content not included)... [facility] Frank 06-21-2021 JEOVANNY Telephone (AGCARDPOB ) STEVEN KOENIG ([id number]) 1955 F Date Time Provider Department 06/21/21 TRACY RAMIRES During your visit today, we recorded the following information about you: Tracy Alan LPN 06/21/2021 8:38 AM Signed ----- Message from Tracy Ramires APRN.SERVICE DELIVERY DIRECTOR sent at 06/21/2021 7:27 AM EDT ----- Please call patient and let her know she has mild non obstructive carotid disease. Thank you! Tracy Alan LPN 06/21/2021 8:40 AM Signed I called and left a message for to call [facility] for test results. PETERSON Grover LPN [...] Encounter Status:Closed by DIANA MAHAN on 06/21/21 [facility] [facility] No Panel InformationOrdered By: Ccf Provider on 01-27-2021 [facility] XR Chest PA and Lateralon IMPRESSION: 1. Findings compatible with underlying emphysema. 2. Mild opacity at the left lateral base, atelectasis versus focus of bronchopneumonia in the appropriate clinical setting. Follow-up to resolution is advised. Inspector Plug Seam: [email or web address] Transcribe Date/Time: Jan 27 2021 11:43A Dictated by : ERENDIRA PAREDES MD This examination was interpreted and the report reviewed and electronically signed by: ERENDIRA PAREDES MD on Jan 27 2021 11:45AM [facility] DIVISION OF RADIOLOGY * * *Final Report* [...] fractures again identified. DIVISION OF RADIOLOGY Provider, [facility] - 01/27/2021 * * *Final Report* [...] clinical setting. Follow-up to resolution is advised. Inspector Plug Seam: [email or web address] Transcribe Date/Time: Jan 27 2021 11:43A Dictated by : ERENDIRA PAREDES MD This examination was interpreted and the report reviewed and electronically signed by: ERENDIRA PAREDES MD on Jan 27 2021 11:45AM [facility] Radiology Study observation (narrative) [facility] XR HIP BILAT 5V PEL/AP/LAT E ACH [...] Impression: 1. No acute fracture or dislocation. Inspector Plug Seam[facility] Transcribe Date/Time: Jan 27 2021 11:57A Dictated by : ANASTASIYA GIBBS MD This examination was interpreted and the report reviewed and electronically signed by: ANASTASIYA GIBBS MD on Jan 27 2021 11:58AM [facility] DIVISION OF RADIOLOGY Provider, [facility] - 01/27/2021 * * *Final Report* [...] Impression: 1. No acute fracture or dislocation. Inspector Plug Seam: [facility] Transcribe Date/Time: Jan 27 2021 11:57A Dictated by : ANASTASIYA GIBBS MD This examination was interpreted and the report reviewed and electronically signed by: ANASTASIYA GIBBS MD on Jan 27 2021 11:58AM EST [facility] Radiology Study observation (narrative) [facility] Basic Metabolic Panelon 06-2 Calcium 8.4 mg/dL Normal 8.2-10.1 [facility] Comment on above: Result Comment: Repe ated Performed By: #### H EMDF, BMP3 ####[email or web address] [address] [place] [address] Chloride 100 mmol/L Normal 98-109 [facility] Comment on above: Result Comment: Repe ated Performed By: #### H EMDF, BMP3 ####[facility] [employer] [address] [place] [address] Sodium 134 mmol/L Low 135-145 [facility] Comment on above: Result Comment: Repe ated Performed By: #### H EMDF, BMP3 ####[facility] [employer] [address] [place] [address] Anion gap 7 Normal [facility] Comment on above: Performed By: #### H EMDF, BMP3 ####[facility] [employer] [address] [place] [address] CO2 27 mmol/L Normal 21-32 [facility] Comment on above: Performed By: #### H EMDF, BMP3 ####[email or web address] [address]wh[address] [place] [address] Creatinine 0.79 mg/dL Normal 0.55-1.40 [facility] Comment on above: Performed By: #### H EMDF, BMP3 ####[facility] [address] [place] [address] eGFR (black) mL/min/{1.73_m2} Normal >60 [facility] Comment on above: Performed By: #### H EMDF, BMP3 ####[facility] [address] [place] [address] eGFR (non-black) mL/min/{1.73_m2} Normal >60 [facility] Comment on above: Result Comment: Sour ce- MDRD equation with creatinine calibration to IDMS(NKDEP) eGFR not recommended for drug dose adjustment Performed By: #### H EMDF, BMP3 ####[facility] [address] [place] [address] Glucose mass conc 98 mg/dL Normal 70-100 [facility] Comment on above: Performed By: #### H AURELIOF BMP3 ####[address] [address] Potassium molar conc 4.6 mmol/L Normal 3.5-5.1 [facility] [employer] Comment on above: Performed By: #### H EMDF, BMP3 ####[address] [address] Urea nitrogen 20 mg/dL Normal 7-25 [facility] Comment on above: Performed By: #### H GREY BMP3 ####[facility] [employer] [address] [address] Glucose,Bedsideon 05-04-2018 Glucose mass conc 99 mg/dL Normal 70-100 [facility] Comment on above: Result Comment: Test performed by glucose meter. Results may be 10%-15% lowerthan serum/plasma values. (CLIA ID [id number]) Performed By: #### B GLU ####[facility] [employer] [address] [address] Hemogram w/ Autodiffon 05-04 Abs Baso Cnt 0.1 10*3/uL Normal 0.0-0.2 [facility] Comment on above: Performed By: #### H EMDF, BMP3 ####[facility] [employer] [address] [address] Basophils/100 WBC Auto (Bld) 1.0 % Normal 0.0-2.0 [facility] Comment on above: Performed By: #### H EMDF, BMP3 ####[facility] [employer] [address] [address] Eosinophils 0.4 10*3/uL Normal 0.0-0.5 [facility] Comment on above: Performed By: #### H EMDF, BMP3 ####[facility] [employer] [address] [address] Eosinophils/100 leukocytes 4.3 % Normal 1.0-6.0 [facility] Comment on above: Performed By: #### H EMDF, BMP3 ####[id number] [place] [address] Erythrocyte distribution width Auto Ratio (RBC) 14.7 % High 11.5-14.5 [facility] Comment on above: Performed By: #### H EMDF, BMP3 ####[address] [address] Erythrocytes (RBC) 4.10 10*6/uL Normal 3.80-5.20 [facility] Comment on above: Performed By: #### H EMDF, BMP3 ####[address] [address] Granulocytes/100 WBC (Bld) 57.2 % Normal 40.0-80.0 [facility] Comment on above: Performed By: #### H EMDF, BMP3 ####[address] [address] Hematocrit (HCT) 40.2 % Normal 35.0-47.0 [facility] Comment on above: Performed By: #### H EMDF, BMP3 ####[address] [address] Hemoglobin mass conc (Bld) 13.3 g/dL Normal 11.7-16.0 [facility] Comment on above: Performed By: #### H EMDF, BMP3 ####[address] [address] Lymphocytes 2.5 10*3/uL Normal 1.0-4.3 [facility] Comment on above: Performed By: #### H EMDF, BMP3 ####[address] [address] Lymphocytes/100 leukocytes 27.6 % Normal 20.0-40.0 [facility] Comment on above: Performed By: #### H EMDF, BMP3 ####[address] [address] MCH 32.5 pg Normal 26.0-34.0 [facility] Comment on above: Performed By: #### H EMDF, BMP3 ####[facility] [address] [place] [address] MCHC mass conc (RBC) 33.0 % Normal 32.0-36.0 [facility] Comment on above: Performed By: #### H EMDF BMP3 ####[address] [address] MCV 98.2 fL High 79.0-98.0 [facility] Comment on above: Performed By: #### H EMDRamírez BMP3 ####[address] [address] Monocytes 0.9 10*3/uL High 0.0-0.8 [facility] Comment on above: Performed By: #### H GREY BMP3 ####[address] [address] Monocytes/100 leukocytes 9.9 % Normal 2.0-10.0 [facility] Comment on above: Performed By: #### H GREY BMP3 ####[address] [address] Neutrophils 5.2 10*3/uL Normal 1.8-7.0 [facility] Comment on above: Performed By: #### H GREY BMP3 ####[address] [address] Platelet mean volume (PMV) 8.8 fL Normal 7.4-10.4 [facility] Comment on above: Performed By: #### H EMDF BMP3 ####[address] [address] Platelets 362 10*3/uL Normal 140-440 [facility] Comment on above: Performed By: #### H EMDF BMP3 ####[address] [address] WBC (Leukocytes) 9.1 10*3/uL Normal 3.6-10.7 [facility] Comment on above: Performed By: #### H EMDF BMP3 ####[address] [address] Ethanol Serum/Plasmaon 04-30 Ethanol-Serum/Plasma < 0.010 Normal 0.000-0.010 [facility] Comment on above: Result Comment: NOTE : This result is for medical treatment only. Analysis performed using non-forensic procedures. Performed By: #### H EMDF, CMP3, QWAL, ETOH4 ####[facility] [employer] [address] [place], [place] HCG,Urine Qualon 04-30-2018 HCG.beta subunit ( test) Ql (U) Negative Normal Negative [facility] Comment on above: Result Comment: Preg ismael is the most common reason for HCG in urine, althoughchoriocarcinoma, hydatidiform mole, and certain nontropho-blastic malignancies also result in detectable urinary HCGlevels. Sensitivity = 20mIU/mL. Performed By: #### U AMAC, DRGA4, HCGUR ####[address] [place], [place] Comp Metabolic Panelon 04-29 Alanine aminotransferase (ALT) 26 U/L Normal 13-69 [facility] Comment on above: Performed By: #### H EMDF, CMP3, QWAL, ETOH4 ####[facility] [employer] [address] [place], [place] Alkaline phosphatase (ALP) 65 U/L Normal 38-126 [facility] Comment on above: Performed By: #### H EMDF, CMP3, QWAL, ETOH4 ####[facility] [employer] [address] [place], [place] Anion gap 10 Normal [facility] Comment on above: Performed By: #### H EMDF, CMP3, QWAL, ETOH4 ####[facility] [employer] [address] [place], [place] Aspartate aminotransferase (AST) 23 U/L Normal 15-46 [facility] Comment on above: Performed By: #### H EMDF, CMP3, QWAL, ETOH4 ####[facility] [employer] [address] [place], [place] Calcium 9.1 mg/dL Normal 8.4-10.2 [facility] Comment on above: Performed By: #### H EMDF, CMP3, QWAL, ETOH4 ####[address] [place], [place] CO2 24 mmol/L Normal 22-30 [facility] Comment on above: Performed By: #### H EMDF, CMP3, QWAL, ETOH4 ####[address] [place], [place] Glucose mass conc 144 mg/dL High 70-100 [facility] Comment on above: Performed By: #### H EMDF, CMP3, QWAL, ETOH4 ####[address] Protein 7.2 g/dL Normal 6.3-8.2 [facility] Comment on above: Performed By: #### H EMDF, CMP3, QWAL, ETOH4 ####[address] Urea nitrogen 14 mg/dL Normal 7-20 [facility] Comment on above: Performed By: #### H EMDF, CMP3, QWAL, ETOH4 ####[address] Bilirubin (total) 0.3 mg/dL Normal 0.2-1.3 [facility] Comment on above: Performed By: #### H EMDF, CMP3, QWAL, ETOH4 ####[address] Creatinine 0.74 mg/dL Normal 0.52-1.25 [facility] Comment on above: Performed By: #### H EMDF, CMP3, QWAL, ETOH4 ####[address] [place], [place] eGFR (black) mL/min/{1.73_m2} Normal >60 [facility] Comment on above: Performed By: #### H EMDF, CMP3, QWAL, ETOH4 ####[address] [place], [place] eGFR (non-black) mL/min/{1.73_m2} Normal >60 [facility] Comment on above: Result Comment: Sour ce- MDRD equation with creatinine calibration to IDMS(NKDEP) eGFR not recommended for drug dose adjustment Performed By: #### H EMDF, CMP3, QWAL, ETOH4 ####[facility] [place], [place] Albumin 4.4 g/dL Normal 3.5-5.0 [facility] Comment on above: Performed By: #### H EMDF, CMP3, QWAL, ETOH4 ####[address] [place], [place] Chloride 106 mmol/L Normal 98-107 [facility] Comment on above: Performed By: #### H EMDF, CMP3, QWAL, ETOH4 ####[address] [place], [place] Potassium molar conc 4.4 mmol/L Normal 3.5-5.1 [facility] Comment on above: Performed By: #### H EMDF, CMP3, QWAL, ETOH4 ####[address] [place], [place] Sodium 141 mmol/L Normal 137-145 [facility] Comment on above: Performed By: #### H EMDF, CMP3, QWAL, ETOH4 ####[facility] [place], [place] Drugs of Abuseon 04-29-2018 Cocaine, Ur Negative Normal [facility] Comment on above: Performed By: #### U AMAC, DRGA4, HCGUR ####[address] [place], [place] Phencyclidine (PCP), Ur Negative Normal [facility] Comment on above: Result Comment: The expected [...] Performed By: #### U AMAC, DRGA4, HCGUR ####[address] [place], [place] Methadone, Ur Negative Normal [facility] Comment on above: Performed By: #### U AMAC, DRGA4, HCGUR ####[address] Opiates, Ur Negative Normal [facility] Comment on above: Performed By: #### U AMAC, DRGA4, HCGUR ####[address] Benzodiazepines, Ur Negative Normal [facility] Comment on above: Performed By: #### U AMAC, DRGA4, HCGUR ####[address] Amphetamines, Ur Negative Normal [facility] Comment on above: Performed By: #### U AMAC, DRGA4, HCGUR ####[address] Barbiturates, Ur Negative Normal [facility] Comment on above: Performed By: #### U AMAC, DRGA4, HCGUR ####[address] Oxycodone/Oxymorphine,U r Negative Normal [facility] Comment on above: Performed By: #### U AMAC, DRGA4, HCGUR ####[address] Hemogram w/ Autodiffon 04-29 Abs Baso Cnt 0.1 10*3/uL Normal 0.0-0.2 [facility] Comment on above: Performed By: #### H EMDF, CMP3, QWAL, ETOH4 ####[address] Basophils/100 WBC Auto (Bld) 1.1 % Normal 0.0-2.0 [facility] Comment on above: Performed By: #### H EMDF, CMP3, QWAL, ETOH4 ####[address] [place], [place] Eosinophils 0.3 10*3/uL Normal 0.0-0.5 [facility] Comment on above: Performed By: #### H EMDF, CMP3, QWAL, ETOH4 ####[address] Eosinophils/100 leukocytes 3.3 % Normal 1.0-6.0 [facility] Comment on above: Performed By: #### H EMDF, CMP3, QWAL, ETOH4 ####[address] Erythrocyte distribution width Auto Ratio (RBC) 14.8 % High 11.5-14.5 [facility] Comment on above: Performed By: #### H EMDF, CMP3, QWAL, ETOH4 ####[address] Erythrocytes (RBC) 4.26 10*6/uL Normal 3.80-5.20 [facility] Comment on above: Performed By: #### H EMDF, CMP3, QWAL, ETOH4 ####[address] Granulocytes/100 WBC (Bld) 54.6 % Normal 40.0-80.0 [facility] Comment on above: Performed By: #### H EMDF, CMP3, QWAL, ETOH4 ####[address] Hematocrit (HCT) 42.5 % Normal 35.0-47.0 [facility] Comment on above: Performed By: #### H EMDF, CMP3, QWAL, ETOH4 ####[address] Hemoglobin mass conc (Bld) 14.1 g/dL Normal 11.7-16.0 [facility] Comment on above: Performed By: #### H EMDF, CMP3, QWAL, ETOH4 ####[address] Lymphocytes 3.1 10*3/uL Normal 1.0-4.3 [facility] Comment on above: Performed By: #### H EMDF, CMP3, QWAL, ETOH4 ####[address] Lymphocytes/100 leukocytes 32.8 % Normal 20.0-40.0 [facility] Comment on above: Performed By: #### H EMDF, CMP3, QWAL, ETOH4 ####[address] MCH 33.1 pg Normal 26.0-34.0 [facility] Comment on above: Performed By: #### H EMDF, CMP3, QWAL, ETOH4 ####[address] MCHC mass conc (RBC) 33.2 % Normal 32.0-36.0 [facility] Comment on above: Performed By: #### H EMDF, CMP3, QWAL, ETOH4 ####[address] MCV 99.8 fL High 79.0-98.0 [facility] Comment on above: Performed By: #### H EMDF, CMP3, QWAL, ETOH4 ####[address] Monocytes 0.8 10*3/uL Normal 0.0-0.8 [facility] Comment on above: Performed By: #### H EMDF, CMP3, QWAL, ETOH4 ####[address] Monocytes/100 leukocytes 8.2 % Normal 2.0-10.0 [facility] Comment on above: Performed By: #### H EMDF, CMP3, QWAL, ETOH4 ####[address] [place], [place] Neutrophils 5.2 10*3/uL Normal 1.8-7.0 [facility] Comment on above: Performed By: #### H EMDF, CMP3, QWAL, ETOH4 ####[address] [place], [place] Platelet mean volume (PMV) 8.5 fL Normal 7.4-10.4 [facility] Comment on above: Performed By: #### H EMDF, CMP3, QWAL, ETOH4 ####[address] [place], [place] Platelets 380 10*3/uL Normal 140-440 [facility] Comment on above: Performed By: #### H EMDF, CMP3, QWAL, ETOH4 ####[address] WBC (Leukocytes) 9.6 10*3/uL Normal 3.6-10.7 [facility] Comment on above: Performed By: #### H EMDF, CMP3, QWAL, ETOH4 ####[address] [place], [place] Urinalysis,Macroon 8 Bilirubin (direct) Negative Normal Negative [facility] Comment on above: Performed By: #### U AMAC, DRGA4, HCGUR ####[address] [place], [place] Ketone,Urine Negative Normal Negative [facility] Comment on above: Performed By: #### U AMAC, DRGA4, HCGUR ####[address] [place], [place] Occult Blood,Ur Negative Normal Negative [facility] Comment on above: Performed By: #### U AMAC, DRGA4, HCGUR ####[address] [place], [place] Specific [place],Urine 1.015 Normal 1.005-1.030 [facility] Comment on above: Performed By: #### U AMAC, DRGA4, HCGUR ####[address] [place], [place] Total Protein,Urine Negative Normal Negative [facility] Comment on above: Performed By: #### U AMAC, DRGA4, HCGUR ####[address] [place], [place] Urine, appearance clear Normal Clear [facility] Comment on above: Performed By: #### U AMAC, DRGA4, HCGUR ####[address] [place], [place] Urine, color yellow Normal Lt. Yellow [facility] Comment on above: Performed By: #### U AMAC, DRGA4, HCGUR ####[address] [place], [place] Urine, glucose presence NORM Normal Negative [facility] Comment on above: Performed By: #### U AMAC, DRGA4, HCGUR ####[address] [place], [place] Urine, nitrite presence Negative Normal Negative [facility] Comment on above: Performed By: #### U AMAC, DRGA4, HCGUR ####[address] [place], [place] Urine, pH 5.0 Normal 5.0-8.0 [facility] Comment on above: Performed By: #### U AMAC, DRGA4, HCGUR ####[address] [place], [place] Urine, urobilinogen NORM Normal 0-1 [facility] Comment on above: Performed By: #### U AMAC, DRGA4, HCGUR ####[address] [place], [place] WBC (Leukocytes) Negative Normal Negative [facility] Comment on above: Performed By: #### U AMAC, DRGA4, HCGUR ####[address] [place], [place] hCG Qual Pregon 04-29-2018 hCG Qual Preg QUESTIONABLE Abnormal [facility] Comment on above: Result Comment: REF RANGE:Negative .... < 3Questionable Rpt 48-72 HrPositive ..... > 10 Performed By: #### H EMDF, CMP3, QWAL, ETOH4 ####[facility] [employer] [id number] [place] [address] Vital Signs Date Time Vital Sign Value Performing Clinician Facility 03-06-2025 11:36-0400 Heart rate 79 /min TIFFANY HANSEN DO [address] [place] [address] 03-06-2025 11:36-0400 Respiratory rate 20 /min TIFFANY JADE DO [facility] 03-06-2025 11:35-0400 Body temperature 98.6 [degF] TIFFANY JADE DO [address] [place] [address] 03-06-2025 11:35-0400 Diastolic Blood Pressure Non-Invasive 63 mm[Hg] TIFFANY HANSEN DO [facility] 03-06-2025 11:35-0400 Heart rate 82 /min TIFFANY JADE DO [facility] 03-06-2025 11:35-0400 Reason For Taking VItal Signs TIFFANY JADE DO [facility] 03-06-2025 11:35-0400 Respiratory rate 20 /min TIFFANY JADE DO [facility] 03-06-2025 11:35-0400 Systolic Blood Pressure Non-Invasive 90 mm[Hg] TIFFANY HANSEN DO [facility] 03-06-2025 08:04-0400 Heart rate 74 /min TIFFANY PABONERLY DO [facility] 03-06-2025 06:48-0400 Body temperature 98.06 [degF] TIFFANY JADE DO [facility] 03-06-2025 06:48-0400 Diastolic Blood Pressure Non-Invasive 75 mm[Hg] TIFFANY HANSEN DO [facility] 03-06-2025 06:48-0400 Heart rate 50 /min TIFFANY HANSEN DO [facility] 03-06-2025 06:48-0400 Reason For Taking VItal Signs TIFFANY HANSEN DO [facility] 03-06-2025 06:48-0400 Respiratory rate 20 /min TIFFANY HANSEN DO [facility] 03-06-2025 06:48-0400 Systolic Blood Pressure Non-Invasive 94 mm[Hg] TIFFANY HANSEN DO [facility] 03-06-2025 03:17-0400 Body temperature 97.88 [degF] TIFFANY HANSEN DO [facility] 03-06-2025 03:17-0400 Diastolic Blood Pressure Non-Invasive 61 mm[Hg] TIFFANY HANSEN DO [facility] 03-06-2025 03:17-0400 Reason For Taking VItal Signs TIFFANY HANSEN DO [facility] 03-06-2025 03:17-0400 Systolic Blood Pressure Non-Invasive 99 mm[Hg] TIFFANY HANSEN DO [facility] 03-05-2025 16:10-0400 Heart rate 79 /min TIFFANY HANSEN DO [facility] 03-05-2025 11:26-0400 Heart rate 68 /min TIFFANY HANSEN DO [facility] 03-05-2025 08:39-0400 Heart rate 75 /min TIFFANY JADE DO [facility] 03-05-2025 06:20-0400 Heart rate 81 /min TIFFANY JADE DO [facility] 03-04-2025 16:31-0400 Heart rate 90 /min TIFFANY JADE DO [facility] 03-04-2025 07:59-0400 Body height 165.1 cm TIFFANY JADE DO [facility] 03-04-2025 07:59-0400 Body temperature 98.06 [degF] TIFFANY JADE DO [address] [place] [address] 03-04-2025 07:59-0400 Body weight 58.3 kg TIFFANY JADE DO [facility] 03-04-2025 07:59-0400 Body weight 21.39 kg/m2 TIFFANY JADE DO [facility] 03-04-2025 05:51-0400 Body weight 58.3 kg TIFFANY JADE DO [facility] 12-14-2024 06:46-0500 Body height 162.[address] MILO ESTEBAN MD [facility] 12-14-2024 06:46-0500 Body temperature 97.88 [degF] DR MILO ESTEBAN MD [facility] 12-14-2024 06:46-0500 Body weight 50.[address] MILO ESTEBAN MD [facility] 12-14-2024 06:46-0500 Diastolic Blood Pressure Non-Invasive 82 mm[Hg] DR MILO ESTEBAN MD [facility] 12-14-2024 06:46-0500 Heart rate 77 /min DR MILO ESTEBAN MD [facility] 12-14-2024 06:46-0500 Respiratory rate 16 /min DR MILO ESTEBAN MD [facility] 12-14-2024 06:46-0500 Systolic Blood Pressure Non-Invasive 122 mm[Hg] DR MILO ESTEBAN MD [facility] 05-09-2023 13:16-0400 Body height 160 cm Mely Kendrick PA-C Work Phone: [facility] 05-09-2023 13:16-0400 Body weight 57.15 kg Mely Kendrick PA-C Work Phone: [facility] 05-09-2023 13:16-0400 Diastolic blood pressure 90 mm[Hg] Mely Kendrick PA-C Work Phone: [facility] 05-09-2023 13:16-0400 Heart rate 83 /min Mely Kendrick PA-C Work Phone: [facility] 05-09-2023 13:16-0400 Respiratory rate 18 /min Mely Kendrick PA-C Work Phone: [facility] 05-09-2023 13:16-0400 SaO2% (BldA) [Mass fraction] 94 % Mely Kendrick PA-C Work Phone: [facility] 05-09-2023 13:16-0400 Systolic blood pressure 140 mm[Hg] Mely Kendrick PA-C Work Phone: [facility] 05-08-2023 12:01-0400 Body weight 56.25 kg Oly Older MANAGER INSTALLATION.SERVICE DELIVERY DIRECTOR Work Phone: [facility] 05-08-2023 12:01-0400 Diastolic blood pressure 88 mm[Hg] Oly Older MANAGER INSTALLATION.SERVICE DELIVERY DIRECTOR Work Phone: [facility] 05-08-2023 12:01-0400 Heart rate 90 /min Oly Older MANAGER INSTALLATION.SERVICE DELIVERY DIRECTOR Work Phone: [facility] 05-08-2023 12:01-0400 Respiratory rate 20 /min Oly Older MANAGER INSTALLATION.SERVICE DELIVERY DIRECTOR Work Phone: [facility] 05-08-2023 12:01-0400 Systolic blood pressure 134 mm[Hg] Oly Older MANAGER INSTALLATION.SERVICE DELIVERY DIRECTOR Work Phone: [facility] 01-07-2023 21:11-0500 Body temperature 98.6 [degF] Armando Wynngabriel Work Phone: [employer] 01-07-2023 21:11-0500 Heart rate 76 /min Armando Benavides DO Work Phone: [employer] 01-07-2023 21:11-0500 Respiratory rate 18 /min Armando Benavides DO Work Phone: [employer] 01-07-2023 21:11-0500 SaO2% (BldA) [Mass fraction] 94 % Armando Wynngabriel POOLE Work Phone: [employer] 01-07-2023 20:00-0500 Diastolic blood pressure 84 mm[Hg] Armando Benavides DO Work Phone: [employer] 01-07-2023 20:00-0500 Systolic blood pressure 161 mm[Hg] Armando Benavides DO Work Phone: [employer] 01-07-2023 17:39-0500 Body height 165.1 cm Armando Benavides DO Work Phone: [employer] 01-07-2023 17:39-0500 Body mass index (BMI) [Ratio] 21.63 kg/m2 Armando Benavides DO Work Phone: [employer] 01-07-2023 17:39-0500 Body weight 58.97 kg Armando Benavides DO Work Phone: [facility] 01-07-2023 12:34-0500 Body temperature 98.2 [degF] Dr. Ulises Hermosillo Work Phone: 4(933)656-714412 [place] [address] 01-07-2023 12:34-0500 Diastolic blood pressure 55 mm[Hg] Dr. Ulises Hermosillo Work Phone: 7(336)379-046812 [place] [address] 01-07-2023 12:34-0500 Heart rate 79 /min Dr. Ulises Hermosillo Work Phone: 9(666)294-235412 [place] [address] 01-07-2023 12:34-0500 Respiratory rate 18 /min Dr. Ulises Hermosillo Work Phone: 9(103)878-211512 [place] [address] 01-07-2023 12:34-0500 SaO2% (BldA) [Mass fraction] 90 % Dr. Ulises Hermosillo Work Phone: 7(964)176-563112 [place] [address] 01-07-2023 12:34-0500 Systolic blood pressure 121 mm[Hg] Dr. Ulises Hermosillo Work Phone: 4(826)831-369112 [place] [address] 01-07-2023 09:58-0500 Inhaled oxygen flow rate 2 L/min Dr. Ulises Hermosillo Work Phone: 0(892)887-813412 [place] [address] 01-07-2023 06:00-0500 Body mass index (BMI) [Ratio] 21.9 kg/m2 Dr. Ulises Hermosillo Work Phone: 7(517)184-594712 [place] [address] 01-07-2023 06:00-0500 Body weight 59.[address] Ulises Hermosillo Work Phone: 3(536)743-592812 [place] [address] 01-03-2023 10:39-0500 Body height 165.[address] Ulises Hermosillo Work Phone: 7(523)095-359612 [place] [address] 01-02-2023 21:43-0500 Body temperature 98.4 [degF] Dr. Ulises Hermosillo Work Phone: 5(376)850-995912 [place] [address] 01-02-2023 21:43-0500 Diastolic blood pressure 87 mm[Hg] Dr. Ulises Hermosillo Work Phone: [facility] 01-02-2023 21:43-0500 Heart rate 96 /min Dr. Ulises Hermosillo Work Phone: [facility] 01-02-2023 21:43-0500 Inhaled oxygen flow rate 2 L/min Dr. Ulises Hermosillo Work Phone: [facility] 01-02-2023 21:43-0500 Respiratory rate 24 /min Dr. Ulises Hermosillo Work Phone: [facility] 01-02-2023 21:43-0500 SaO2% (BldA) [Mass fraction] 96 % Dr. Ulises Hermosillo Work Phone: [facility] 01-02-2023 21:43-0500 Systolic blood pressure 118 mm[Hg] Dr. Ulises Hermosillo Work Phone: [facility] 01-02-2023 17:54-0500 Body height 165.[address] Ulises Hermosillo Work Phone: [facility] 01-02-2023 17:54-0500 Body mass index (BMI) [Ratio] 21.8 kg/m2 Dr. Ulises Hermosillo Work Phone: [facility] 01-02-2023 17:54-0500 Body weight 59.[address] Ulises Hermosillo Work Phone: [facility] 01-01-2023 14:08-0500 Diastolic blood pressure 83 mm[Hg] Oly Older MANAGER INSTALLATION.SERVICE DELIVERY DIRECTOR Work Phone: [facility] 01-01-2023 14:08-0500 Heart rate 85 /min Oly Older MANAGER INSTALLATION.SERVICE DELIVERY DIRECTOR Work Phone: [facility] 01-01-2023 14:08-0500 Systolic blood pressure 170 mm[Hg] Oly Older MANAGER INSTALLATION.SERVICE DELIVERY DIRECTOR Work Phone: [facility] 01-01-2023 13:09-0500 Body weight 58.06 kg Oly Older MANAGER INSTALLATION.SERVICE DELIVERY DIRECTOR Work Phone: [facility] 01-01-2023 13:09-0500 Respiratory rate 22 /min Oly Older MANAGER INSTALLATION.SERVICE DELIVERY DIRECTOR Work Phone: [facility] 01-01-2023 13:09-0500 SaO2% (BldA) [Mass fraction] 97 % Oly Older MANAGER INSTALLATION.SERVICE DELIVERY DIRECTOR Work Phone: [facility] 12-23-2022 16:29-0500 Diastolic Blood Pressure Non-Invasive [address] JOSE ROBERTO COMBS MD [facility] 12-23-2022 16:29-0500 Heart rate 84 /min DR JOSE ROBERTO COMBS MD [facility] 12-23-2022 16:29-0500 Respiratory rate 16 /min DR JOSE ROBERTO COMBS MD [facility] 12-23-2022 16:29-0500 Systolic Blood Pressure Non-Invasive [address] JOSE ROBERTO COMBS MD [facility] 12-23-2022 14:43-0500 Diastolic Blood Pressure Non-Invasive [address] JOSE ROBERTO COMBS MD [facility] 12-23-2022 14:43-0500 Heart rate 82 /min DR JOSE ROBERTO COMBS MD [facility] 12-23-2022 14:43-0500 Respiratory rate 18 /min DR JOSE ROBERTO COMBS MD [facility] 12-23-2022 14:43-0500 Systolic Blood Pressure Non-Invasive [address] JOSE ROBERTO COMBS MD [facility] 12-23-2022 13:50-0500 Body temperature 96.98 [degF] DR JOSE ROBERTO COMBS MD [facility] 12-23-2022 13:50-0500 Diastolic Blood Pressure Non-Invasive [address] JOSE ROBERTO COMBS MD [facility] 12-23-2022 13:50-0500 Heart rate 89 /min DR JOSE ROBERTO COMBS MD [facility] 12-23-2022 13:50-0500 Respiratory rate 18 /min DR JOSE ROBERTO COMBS MD [facility] 12-23-2022 13:50-0500 Systolic Blood Pressure Non-Invasive [address] JOSE ROBERTO COMBS MD [facility] 11-26-2022 12:48-0500 Body weight 57.61 kg Isauro Asher MD Work Phone: [facility] 11-26-2022 12:48-0500 Diastolic blood pressure 84 mm[Hg] Isauro Asher MD Work Phone: [facility] 11-26-2022 12:48-0500 Heart rate 98 /min Isauro Asher MD Work Phone: [facility] 11-26-2022 12:48-0500 Respiratory rate 20 /min Isauro Asher MD Work Phone: [facility] 11-26-2022 12:48-0500 SaO2% (BldA) [Mass fraction] 99 % Isauro Asher MD Work Phone: [facility] 11-26-2022 12:48-0500 Systolic blood pressure 120 mm[Hg] Isauro Asher MD Work Phone: [facility] 10-26-2022 19:30-0500 Diastolic Blood Pressure Non-Invasive 93 1 JEOVANY TAYLOR MD [facility] 10-26-2022 19:30-0500 Heart rate 97 /min JEOVANY TAYLOR MD [facility] 10-26-2022 19:30-0500 Respiratory rate 20 /min JEOVANY TAYLOR MD [facility] 10-26-2022 19:30-0500 Systolic Blood Pressure Non-Invasive 167 1 JEOVANY TAYLOR MD [facility] 10-26-2022 19:00-0500 Diastolic Blood Pressure Non-Invasive 92 1 JEOVANY TAYLOR MD [facility] 10-26-2022 19:00-0500 Heart rate 93 /min JEOVANY TAYLOR MD [facility] 10-26-2022 19:00-0500 Respiratory rate 18 /min JEOVANY TAYLOR MD [facility] 10-26-2022 18:37-0500 Heart rate 94 /min JEOVANY TAYLOR MD [facility] 10-26-2022 18:37-0500 Respiratory rate 22 /min JEOVANY TAYLOR MD [facility] 10-26-2022 18:31-0500 Diastolic Blood Pressure Non-Invasive 82 1 JEOVANY TAYLOR MD [facility] 10-26-2022 18:31-0500 Systolic Blood Pressure Non-Invasive 153 1 JEOVANY TAYLOR MD [facility] 10-26-2022 16:25-0500 Body temperature 96.8 [degF] JEOVANY TAYLOR MD [facility] 10-02-2022 10:02-0500 Body height 162.1 cm Doron Self DO Work Phone: [facility] 10-02-2022 10:02-0500 Body weight 58.97 kg Doron Self DO Work Phone: [facility] 10-02-2022 10:02-0500 Diastolic blood pressure 87 mm[Hg] Doron Self DO Work Phone: [facility] 10-02-2022 10:02-0500 Heart rate 86 /min Doron Self DO Work Phone: [facility] 10-02-2022 10:02-0500 SaO2% (BldA) [Mass fraction] 96 % Doron Self DO Work Phone: [facility] 10-02-2022 10:02-0500 Systolic blood pressure 155 mm[Hg] Doron Self DO Work Phone: [facility] 09-05-2022 16:28-0400 Body weight 59.88 kg Ulises Hermosillo MD Work Phone: [facility] 09-05-2022 16:28-0400 Diastolic blood pressure 82 mm[Hg] Ulises Hermosillo MD Work Phone: [facility] 09-05-2022 16:28-0400 Heart rate 95 /min Ulises Hermosillo MD Work Phone: [facility] 09-05-2022 16:28-0400 SaO2% (BldA) [Mass fraction] 98 % Ulises Hermosillo MD Work Phone: [facility] 09-05-2022 16:28-0400 Systolic blood pressure 132 mm[Hg] Ulises Hermosillo MD Work Phone: [facility] 08-31-2022 13:22-0400 Body weight 58.51 kg Oly Older MANAGER INSTALLATION.SERVICE DELIVERY DIRECTOR Work Phone: [facility] 08-31-2022 13:22-0400 Diastolic blood pressure 82 mm[Hg] Oly Older MANAGER INSTALLATION.SERVICE DELIVERY DIRECTOR Work Phone: [facility] 08-31-2022 13:22-0400 Heart rate 86 /min Oly Older MANAGER INSTALLATION.SERVICE DELIVERY DIRECTOR Work Phone: [facility] 08-31-2022 13:22-0400 Respiratory rate 18 /min Oly Older MANAGER INSTALLATION.SERVICE DELIVERY DIRECTOR Work Phone: [facility] 08-31-2022 13:22-0400 Systolic blood pressure 125 mm[Hg] Oly Older MANAGER INSTALLATION.SERVICE DELIVERY DIRECTOR Work Phone: [facility] 07-31-2022 14:17-0400 Body weight 60.33 kg Nicole Kenny APRN.SERVICE DELIVERY DIRECTOR Work Phone: [facility] 07-31-2022 14:17-0400 Diastolic blood pressure 82 mm[Hg] Nicole Kenny APRN.SERVICE DELIVERY DIRECTOR Work Phone: [facility] 07-31-2022 14:17-0400 Heart rate 89 /min Nicole Kenny APRN.SERVICE DELIVERY DIRECTOR Work Phone: [facility] 07-31-2022 14:17-0400 SaO2% (BldA) [Mass fraction] 98 % Nicole Kenny APRN.SERVICE DELIVERY DIRECTOR Work Phone: [facility] 07-31-2022 14:17-0400 Systolic blood pressure 148 mm[Hg] Nicole Kenny APRN.SERVICE DELIVERY DIRECTOR Work Phone: [facility] 06-06-2022 10:11-0400 Body height 162.1 cm Margaret Kasper MD Work Phone: [facility] 06-06-2022 10:11-0400 Body weight 58 kg Margaret Kasper MD Work Phone: [facility] 06-06-2022 10:11-0400 Diastolic blood pressure 84 mm[Hg] Margaret Kasper MD Work Phone: [facility] 06-06-2022 10:11-0400 Heart rate 77 /min Margaret Kasper MD Work Phone: [facility] 06-06-2022 10:11-0400 SaO2% (BldA) [Mass fraction] 96 % Margaret Kasper MD Work Phone: [facility] 06-06-2022 10:11-0400 Systolic blood pressure 173 mm[Hg] Margaret Kasper MD Work Phone: [facility] 05-11-2022 13:40-0400 Body weight 58.06 kg Ulises Hermosillo MD Work Phone: [facility] 05-11-2022 13:40-0400 Diastolic blood pressure 78 mm[Hg] Ulises Hermosillo MD Work Phone: [facility] 05-11-2022 13:40-0400 Heart rate 99 /min Ulises Hermosillo MD Work Phone: [facility] 05-11-2022 13:40-0400 Respiratory rate 24 /min Ulises Hermosillo MD Work Phone: [facility] 05-11-2022 13:40-0400 SaO2% (BldA) [Mass fraction] 95 % Ulises Hermosillo MD Work Phone: [facility] 05-11-2022 13:40-0400 Systolic blood pressure 118 mm[Hg] Ulises Hermosillo MD Work Phone: [facility] 05-05-2022 10:56-0400 Respiratory rate 16 /min DR BETINA GODDARD MD [facility] 05-05-2022 10:48-0400 Body temperature 97.7 [degF] DR BETINA GODDARD MD [facility] 05-05-2022 10:48-0400 Diastolic blood pressure 75 mm[Hg] DR BETINA GODDARD MD [facility] 05-05-2022 10:48-0400 Heart rate 76 /min DR BETINA GODDARD MD [facility] 05-05-2022 10:48-0400 Reason For Taking VItal Signs DR BETINA GODDARD MD [facility] 05-05-2022 10:48-0400 Respiratory rate 16 /min DR BETINA GODDARD MD [facility] 05-05-2022 10:48-0400 Systolic blood pressure 116 mm[Hg] DR BETINA GODDARD MD [facility] 05-05-2022 07:33-0400 Body temperature 97.88 [degF] DR BETINA GODDARD MD [address] [place] [address] 05-05-2022 07:33-0400 Diastolic blood pressure 71 mm[Hg] DR BETINA GODDARD MD [address] [place] [address] 05-05-2022 07:33-0400 Heart rate 71 /min DR BETINA GODDARD MD [address] [place] [address] 05-05-2022 07:33-0400 Mean blood pressure 88 mm[Hg] DR BETINA GODDARD MD [facility] 05-05-2022 07:33-0400 Reason For Taking VItal Signs DR BETINA GODDARD MD [address] [place] [address] 05-05-2022 07:33-0400 Respiratory rate 16 /min DR BETINA GODDARD MD [address] [place] [address] 05-05-2022 07:33-0400 Systolic blood pressure 122 mm[Hg] DR BETINA GODDARD MD [address] [place] [address] 05-05-2022 06:43-0400 Heart rate 77 /min DR BETINA GODDARD MD [address] [place] [address] 05-04-2022 23:22-0400 Diastolic blood pressure 64 mm[Hg] DR BETINA GODDARD MD [facility] 05-04-2022 23:22-0400 Systolic blood pressure 124 mm[Hg] DR BETINA GODDARD MD [facility] 05-04-2022 20:59-0400 Body temperature 98.42 [degF] DR BETINA GODDARD MD [facility] 05-04-2022 20:59-0400 Heart rate 73 /min DR BETINA GODDARD MD [facility] 05-04-2022 14:47-0400 Mean blood pressure 92 mm[Hg] DR BETINA GODDARD MD [facility] 05-04-2022 14:47-0400 Reason For Taking VItal Signs DR BETINA GODDARD MD [facility] 05-04-2022 01:04-0400 Heart rate 81 /min DR BETINA GODDARD MD [facility] 05-04-2022 01:04-0400 Mean blood pressure 85 mm[Hg] DR BETINA GODDARD MD [facility] 05-03-2022 19:06-0400 Heart rate 94 /min DR BETINA GODDARD MD [facility] 05-03-2022 14:51-0400 Heart rate 82 /min DR BETINA GODDARD MD [facility] 05-02-2022 09:53-0400 Body height 165.[address] BETINA GODDARD MD [facility] 05-02-2022 09:53-0400 Body weight [address] BETINA GODDARD MD [facility] 05-02-2022 09:53-0400 Body weight 22.01 kg/m2 DR BETINA GODDARD MD [facility] 05-02-2022 06:28-0400 Diastolic blood pressure 86 mm[Hg] EMMANUEL FROMMELT DO [facility] 05-02-2022 06:28-0400 Heart rate 92 /min EMMANUEL FROMMELT DO [facility] 05-02-2022 06:28-0400 Respiratory rate 20 /min EMMANUEL FROMMELT DO [facility] 05-02-2022 06:28-0400 Systolic blood pressure 131 mm[Hg] EMMANUEL FROMMELT DO [facility] 05-02-2022 04:25-0400 Diastolic blood pressure 82 mm[Hg] EMMANUEL FROMMELT DO [facility] 05-02-2022 04:25-0400 Heart rate 95 /min EMMANUEL FROMMELT DO [facility] 05-02-2022 04:25-0400 Mean blood pressure 98 mm[Hg] EMMANUEL FROMMELT DO [facility] 05-02-2022 04:25-0400 Respiratory rate 22 /min EMMANUEL FROMMELT DO [facility] 05-02-2022 04:25-0400 Systolic blood pressure 129 mm[Hg] EMMANUEL FROMMELT DO [facility] 05-02-2022 03:42-0400 Diastolic blood pressure 84 mm[Hg] EMMANUEL FROMMELT DO [facility] 05-02-2022 03:42-0400 Heart rate 98 /min EMMANUEL THOMPSONT DO [facility] 05-02-2022 03:42-0400 Mean blood pressure 99 mm[Hg] EMMANUEL THOMPSONT DO [facility] 05-02-2022 03:42-0400 Respiratory rate 24 /min EMMANUEL THOMPSONT DO [facility] 05-02-2022 03:42-0400 Systolic blood pressure 130 mm[Hg] EMMANUEL FROMMELT DO [facility] 05-02-2022 03:12-0400 Body temperature 98.24 [degF] EMMANUEL FROMMELT DO [facility] 05-02-2022 03:12-0400 Heart rate 130 /min EMMANUEL FROMMELT DO [facility] 05-02-2022 03:11-0400 Heart rate 124 /min EMMANUEL KILLIAN DO [facility] 04-30-2022 15:40-0400 Body weight 57.61 kg Tracy Ramires APRN.SERVICE DELIVERY DIRECTOR Work Phone: [facility] 04-30-2022 15:40-0400 Diastolic blood pressure 75 mm[Hg] Tracy Ramires MANAGER INSTALLATION.SERVICE DELIVERY DIRECTOR Work Phone: [facility] 04-30-2022 15:40-0400 Heart rate 83 /min Tracy Ramires APRN.SERVICE DELIVERY DIRECTOR Work Phone: [facility] 04-30-2022 15:40-0400 Systolic blood pressure 138 mm[Hg] Tracy Ramires APRN.SERVICE DELIVERY DIRECTOR Work Phone: [facility] 03-13-2022 13:59-0400 Body height 165.1 cm Nicole Kenny APRN.SERVICE DELIVERY DIRECTOR Work Phone: [facility] 03-13-2022 13:59-0400 Body weight 60.92 kg Nicole Kenny APRN.SERVICE DELIVERY DIRECTOR Work Phone: [facility] 03-13-2022 13:59-0400 Diastolic blood pressure 76 mm[Hg] Nicole Kenny APRN.SERVICE DELIVERY DIRECTOR Work Phone: [facility] 03-13-2022 13:59-0400 Heart rate 81 /min Nicole Kenny APRN.SERVICE DELIVERY DIRECTOR Work Phone: [facility] 03-13-2022 13:59-0400 SaO2% (BldA) [Mass fraction] 96 % Nicole Kenny APRN.SERVICE DELIVERY DIRECTOR Work Phone: [facility] 03-13-2022 13:59-0400 Systolic blood pressure 157 mm[Hg] Nicole Kenny APRN.SERVICE DELIVERY DIRECTOR Work Phone: [facility] Encounters Encounter Date Encounter Type Care Provider Facility Start: 07-13-2025 ambulatory Ulises Cervantes ty:[facility] Start: 07-09-2025 End: 07-12-2025 Emergency department patient visit ARLEN STRONG MANAGER INSTALLATION-SERVICE DELIVERY DIRECTOR Facility:[facility] Start: 07-09-2025 End: 07-12-2025 Observation ARLEN STRONG MANAGER INSTALLATION-SERVICE DELIVERY DIRECTOR [facility] Start: 06-12-2025 End: 06-15-2025 Evaluation and management of inpatient DR JAE LUCIANO MD [facility] Start: 06-12-2025 End: 06-12-2025 Emergency department patient visit BRIAN AMOS DO [facility] Start: 05-16-2025 End: 05-24-2025 Evaluation and management of inpatient GWYN FERRARO MANAGER INSTALLATION-[facility] Start: 03-05-2025 ambulatory EMMA DIBEN Facility:[facility] Start: 03-04-2025 End: 03-06-2025 Emergency department patient visit DR LEAH KHAN DO Facility:[facility] Start: 03-04-2025 End: 03-06-2025 Observation TIFFANY HANSEN DO [facility] Start: 02-19-2025 ambulatory EMMA M JENNIEMARY JO DO Facil ity:A Start: 02-19-2025 End: 02-20-2025 Evaluation and management of inpatient EMMA DITCHEY Facility:[facility] Start: 02-03-2025 End: 02-03-2025 ambulatory EMMA DITCHEY Facility:[facility] Start: 12-25-2024 End: 12-25-2024 ambulatory EMMA DITCHEY Facility:[facility] Start: 12-25-2024 End: 12-25-2024 Patient encounter procedure XAVIER GONZALEZ MD [facility] Start: 12-14-2024 End: 12-14-[address] MILO ESTEBAN MD Facility: Start: 12-14-2024 End: 12-14-[address] MILO ESTEBAN MD [facility] Start: 12-11-2024 End: 12-11-2024 ambulatory EMMA QUEEN Facility:[facility] Start: 12-11-2024 End: 12-11-2024 Patient encounter procedure XAVIER GONZALEZ MD [facility] Start: 10-23-2024 End: 10-27-[address] ULISES HERMOSILLO MD Facility:[facility] Start: 10-23-2024 End: 10-27-2024 Outreach Lab EMMA QUEEN DO [facility] Start: 01-24-2024 Refill No Pcp MANAGER INSTALLATION [facility] [place] Comment on above: Refill Request Start: 12-23-2023 Refill Ulises ram MD Work Phone: [facility] [place] Comment on above: Refill Request Start: 10-18-2023 [...] Start: 06-06-2023 Refill Tracy E Ar y MANAGER INSTALLATION.SERVICE DELIVERY DIRECTOR Work Phone: Cardiology Comment on above: Refill Request Start: 05-28-2023 Orders Only Fifi Price er MANAGER INSTALLATION.SERVICE DELIVERY DIRECTOR Work Phone: Pulmonary Medicine Comment on above: Encounter for screen ing for lung cancer (Primary Dx); Tobacco use current Start: 05-10-2023 Telephone encounter Ulises cheng MD Work Phone: [facility] [place] Comment on above: Results Start: 05-09-2023 End: 05-09-2023 ambulatory MELY GRIFFIN Facility:[facility] Start: 05-09-2023 End: 05-09-2023 Patient encounter procedure Mely Griffin PA-C Work Phone: Pulmonary Medicine Comment on above: Stage 3 severe COPD by GOLD classification (HCC) (Primary Dx); Cigarette smoker; Lung nodules Start: 05-08-2023 End: 05-09-2023 ambulatory OLY OLDER Facility:[facility] Start: 05-08-2023 End: 05-08-2023 Subsequent hospital visit by physician Xr [facility] [place] Work Phone: Radiology Comment on above: Chronic midline low back pain with sciatica, sciatica laterality unspecified [M54.40, G89.29] Start: 05-08-2023 End: 05-08-2023 Patient encounter procedure Oly Smith MANAGER INSTALLATION.SERVICE DELIVERY DIRECTOR Work Phone: [facility] [place] Comment on above: Chronic midline low back pain with sciatica, sciatica laterality unspecified (Primary Dx); Lesion of left ear; Essential hypertension; Mixed hyperlipidemia; Chronic bronchitis, unspecified chronic bronchitis type (HCC); Recurrent major depression in partial remission (HCC); Coronary artery disease involving [place] coronary artery of [place]os heart without angina pectoris Start: 04-16-2023 ambulatory Melissa Vital MA [facility] Comment on above: Population Health Na vigation Outreach (Amandaator Kailash amaya [facility]) Start: 04-02-2023 End: 04-02-2023 ambulatory DORON SELF Facility:[facility] Start: 02-26-2023 Refill Isauro Asher MD Work Phone: Pulmonary Medicine Comment on above: Refill Request Start: 01-07-2023 End: 01-07-2023 Emergency department patient visit ARMANDO BENAVIDES [facility] Start: 01-07-2023 End: 01-07-2023 Emergency department patient visit Armando Agarwal Kennedy POOLE Work Phone: [facility] Emergency Department Comment on above: Dehydration (Primary Dx) Start: 01-06-2023 Non-patient / Non-visit Dr. Amie Hermosillo Work Phone: [facility] Start: 01-05-2023 Non-patient / Non-visit Dr. Amie Hermosillo Work Phone: [facility] Start: 01-04-2023 Non-patient / Non-visit Dr. Amie Hermosillo Work Phone: [facility] Start: 01-04-2023 Non-patient / Non-visit Dr. Amie Hermosillo Work Phone: [facility] Start: 01-03-2023 Non-patient / Non-visit Dr. Amie Hermosillo Work Phone: [facility] Start: 01-02-2023 Non-patient / Non-visit Dr. Amie Hermosillo Work Phone: [facility] Start: 01-02-2023 End: 01-07-2023 Evaluation and management of inpatient Dr. Ulises Hermosillo Work Phone: [facility] Start: 01-01-2023 End: 01-02-2023 [facility] Facility:[facility] Start: 01-01-2023 End: 01-01-2023 Patient encounter procedure Oly Older MANAGER INSTALLATION.SERVICE DELIVERY DIRECTOR Work Phone: [facility] [place] Comment on above: Alcohol withdrawal s yndrome without complication (HCC) (Primary Dx) Start: 01-01-2023 Telephone encounter Diana delarosa REINFORCED IRONWORKER Work Phone: Adult Psychology Comment on above: Behavioral [facility] Work Start: 01-01-2023 End: 01-01-2023 Subsequent hospital visit by physician Xr [facility] [place] Work Phone: Radiology Comment on above: Hemoptysis [R04.2] Start: 12-23-2022 End: 12-23-2022 Emergency department patient visit JOSE ROBERTO COMBS MD Facility:B Start: 12-23-2022 End: 12-23-2022 Emergency department patient visit DR JOSE ROBERTO COMBS MD [facility] Start: 12-14-2022 Refill Ulises ram MD Work Phone: [facility] Comment on above: Refill Request Start: 11-26-2022 End: 11-26-2022 ambulatory ISAURO ASHER Facility:[facility] Start: 11-26-2022 End: 11-26-2022 Patient encounter procedure Isauro Asher MD Work Phone: Pulmonary Medicine Comment on above: Hemoptysis (Primary Dx); Stage 3 severe COPD by GOLD classification ([facility]); Cigarette smoker Start: 10-26-2022 End: 10-26-2022 [facility] Start: 10-26-2022 End: 10-26-2022 Emergency department patient visit JEOVANY TAYLOR MD [facility] Start: 10-02-2022 End: 10-02-2022 Patient encounter procedure Doron Self DO Work Phone: Vascular Surgery Comment on above: PAD (peripheral daxa ry disease) ([facility]) Start: 09-21-2022 Telephone encounter Doron Self DO Work Phone: Vasculary Surgery Comment on above: Patient Question Start: 09-19-2022 Telephone encounter Doron Self DO Work Phone: Vascular Surgery Comment on above: Orders Start: 09-05-2022 End: 09-05-2022 Patient encounter procedure Ulises Hermosillo MD Work Phone: Internal Medicine [place] Comment on above: Thrush (oral) (Prima ry Dx); Prediabetes; Essential hypertension Start: 09-05-2022 ambulatory Ulises ram MD Work Phone: Internal Medicine [place] Comment on above: Mouth/Lip Problem Start: 08-31-2022 End: 08-31-2022 Patient encounter procedure Olysky Smith MANAGER INSTALLATION.SERVICE DELIVERY DIRECTOR Work Phone: Internal Medicine [place] Comment on above: Situational anxiety (Primary Dx); Allergic conjunctivitis of both eyes; Recurrent major depression in partial remission (HCC); Essential hypertension; Coronary artery disease involving confederated coos coronary artery of confederated coos heart without angina pectoris; Chronic bronchitis, unspecified chronic bronchitis type (HCC); Encounter for immunization; Mixed hyperlipidemia; Lung nodule; Screening for osteoporosis; Asymptomatic menopause Start: 08-13-2022 Telephone encounter Ulises cheng MD Work Phone: Internal Medicine [place] Comment on above: Patient Update Start: 08-02-2022 Telephone encounter Doron Self DO Work Phone: Vascular Surgery Comment on above: Appointment Start: 07-31-2022 End: 07-31-2022 Patient encounter procedure Nicole Kimimarcelle Kenny APRN.SERVICE DELIVERY DIRECTOR Work Phone: Pulmonary Medicine Comment on above: Lung nodules (Primar y Dx); Current smoker Start: 07-26-2022 ambulatory UNKNOWN PROVIDER Facili ty:[facility] Start: 07-20-2022 Refill Ulises ram MD Work Phone: Internal Medicine [place] Comment on above: Refill Request Start: 07-13-2022 Telephone encounter Doron Self DO Work Phone: Vascular Surgery Comment on above: Appointment Start: 07-09-2022 End: 07-09-2022 ambulatory Respiratory Therapist [facility] Work Phone: Pulmonary Medicine Comment on above: Arrived Start: 07-09-2022 End: 07-09-2022 Patient encounter procedure Respiratory Therapist [facility] Work Phone: [facility] Start: 07-06-2022 Telephone encounter Margaret Kasper MD Work Phone: Pulmonary Medicine Comment on above: Orders Start: 06-14-2022 Refill Ulises ram MD Work Phone: Internal Medicine [place] Comment on above: Refill Request Start: 06-06-2022 End: 06-06-2022 ambulatory Pulm Work Phone: Pulmonary Medicine Comment on above: Spirometry Start: 06-06-2022 End: 06-06-2022 Patient encounter procedure Pulm [facility] Work Phone: [facility] Comment on above: Asthma-COPD overlap syndrome (HCC) (Primary Dx); Wheezing; Smoking Start: 06-04-2022 Telephone encounter Ulises cheng MD Work Phone: Internal Medicine [place] Comment on above: Aerochamber spacer Start: 05-31-2022 Telephone encounter Ulises cheng MD Work Phone: Internal Medicine [place] Comment on above: Orders Start: 05-30-2022 Orders Only Nicole lang MANAGER INSTALLATION.SERVICE DELIVERY DIRECTOR Work Phone: Pulmonary Medicine Comment on above: Tobacco use disorder (Primary Dx) Smoker (Primary Dx); Encounter for screening for malignant neoplasm of lung Start: 05-28-2022 Refill Tracy kirkland MANAGER INSTALLATION.SERVICE DELIVERY DIRECTOR Work Phone: Cardiology Comment on above: Refill Request Start: 05-25-2022 Refill Ulises ram MD Work Phone: Internal Medicine [place] Comment on above: Refill Request Start: 05-23-2022 Telephone encounter Tracy Ramires MANAGER INSTALLATION.SERVICE DELIVERY DIRECTOR Work Phone: Cardiology Comment on above: Results Start: 05-21-2022 End: 05-21-2022 Patient encounter procedure Echocardiogram [facility] Work Phone: Cardiology Comment on above: DIAZ (dyspnea on exer tion) Start: 05-11-2022 End: 05-11-2022 Patient encounter procedure Ulises Hermosillo MD Work Phone: Internal Medicine [place] Comment on above: Chronic bronchitis, unspecified chronic bronchitis type (HCC) (Primary Dx); Recurrent major depression in partial remission (HCC); Gastroesophageal reflux disease, unspecified whether esophagitis present; Need for vaccination; Bipolar affective disorder, current episode mixed, current episode severity unspecified (HCC); PAD (peripheral artery disease) (HCC) Start: 05-07-2022 Refill Ulises ram MD Work Phone: Internal Medicine [place] Comment on above: Refill Request Start: 05-02-2022 End: 05-05-2022 Evaluation and management of inpatient BETINA GODDARD MD Facility:A Start: 05-02-2022 End: 05-05-2022 Evaluation and management of inpatient DR BETINA GODDARD MD [facility] Start: 05-02-2022 End: 05-02-2022 Emergency department patient visit [facility] Facility:B Start: 05-02-2022 End: 05-02-2022 Emergency department patient visit [facility] DO [facility] Start: 04-30-2022 End: 04-30-2022 Patient encounter procedure Tracy Ramires MANAGER INSTALLATION.SERVICE DELIVERY DIRECTOR Work Phone: Cardiology Comment on above: DIAZ (dyspnea on exer tion) (Primary Dx); Essential hypertension; Coronary artery disease involving confederated coos coronary artery of confederated coos heart without angina pectoris; Mixed hyperlipidemia; Smoker; Stenosis of carotid artery, unspecified laterality Start: 04-03-2022 Refill Ulises ram MD Work Phone: Internal Medicine [place] Comment on above: Refill Request Start: 03-16-2022 Refill Eri Fu APRN.SERVICE DELIVERY DIRECTOR Work Phone: Pulmonary Medicine Comment on above: Refill Request Start: 03-13-2022 End: 03-13-2022 Patient encounter procedure Nicole Kenny MANAGER INSTALLATION.SERVICE DELIVERY DIRECTOR Work Phone: Pulmonary Medicine Comment on above: Dyspnea on exertion (Primary Dx); Smoker; Encounter for screening for malignant neoplasm of lung Start: 03-01-2022 Refill Oly Smith MANAGER INSTALLATION .SERVICE DELIVERY DIRECTOR Work Phone: Internal Medicine [place] Comment on above: Refill Request Start: 10-10[facility]20[facility] Start: 08-14-2021 [facility] Start: 08-14-2021 [facility] Start: 01-27-2021 End: 01-27-2021 Subsequent hospital visit by physician Xr [facility] [place] Work Phone: Radiology Comment on above: Chest pain, unspecif ied type [R07.9] Pain [R52] Start: 09-28-2019 End: 10-06-2019 Patient encounter status Xr [place] Work Phone: [facility] Start: 04-29-2018 Emergency department patient visit UNKNOWN PROVIDER [facility] Procedures Date Procedure Procedure Detail Performing Clinician Start: 07-09-2025 History of percutane ous transluminal coronary angioplasty ARLEN STRONG MANAGER INSTALLATION-SERVICE DELIVERY DIRECTOR Start: 06-12-2025 History of percutane ous transluminal coronary angioplasty DR JAE LUCIANO MD Start: 05-17-2025 History of percutane ous transluminal coronary angioplasty GWYN FERRARO MANAGER INSTALLATION-SERVICE DELIVERY DIRECTOR Start: 03-04-2025 History of percutane ous transluminal coronary angioplasty TIFFANY HANSEN DO Start: 05-08-2023 Radex spine lumbosac ral 2/3 views Oly Durbin MANAGER INSTALLATION.SERVICE DELIVERY DIRECTOR Work Phone: Start: 05-08-2023 Lipid 1996 panel [...] QUADRIVALENT HIGH DOSE AGE 65+ Oly Older MANAGER INSTALLATION.SERVICE DELIVERY DIRECTOR Work Phone: Start: 07-09-2022 Noninvasive ear/puls e oximetry multiple deter Margaret Kasper MD Work Phone: Start: 06-06-2022 Brncdilat rspse spmt ry pre&post-brncdilat admn Nicole Kenny MANAGER INSTALLATION.SERVICE DELIVERY DIRECTOR Work Phone: Start: 05-21-2022 Echo tthrc r-t 2d w/ wom-mode compl spec&colr d Tracy E Sima MANAGER INSTALLATION.SERVICE DELIVERY DIRECTOR Work Phone: Start: 08-25-2021 Cardiac catheterization GWYN FERRARO MANAGER INSTALLATION-SERVICE DELIVERY DIRECTOR Comment on above: with stents Start: 01-27-2021 Radiologic exam chest 2 views Ulises Hermosillo MD Work Phone: Start: 01-27-2021 Radex hips bilateral with pelvis minimum 5 views Babatunde Lomeli MD Work Phone: Start: 04-03-2017 Colonoscopy Oly Older MANAGER INSTALLATION.SERVICE DELIVERY DIRECTOR Work Phone: Cardiac catheterization TIFFANY HANSEN Comment on above: with stents Cervical (qualifier value) [facility] Comment on above: replacement of 2 dis cs Cholecystectomy [facility] Cholecystocecostomy [facility] Ear structure (body structure) DR MILO ESTEBAN MD Comment on above: left facial nerves r epair Hysterectomy [facility] Investigation of tra nsfusion reaction Dr. Ulises Hermosillo Work Phone: None (qualifier value) [facility] Respiratory microbial culture Dr. Ulises Hermosillo Work Phone: Tonsillectomy [facility] Upper limb structure (body structure) [facility] Comment on above: left Plan of Treatment Date Care Activity Detail Author Start: 05-08-2028 Lipid 1996 panel - Serum or Plasma Lipid Screening [facility] Start: 05-08-2028 Lipid panel Lipid Screening [facility] Start: 05-08-2028 LIPID SCREEN LIPID SCREEN [facility] Start: 04-03-2027 Colonoscopy COLONOSCOPY [facility] Start: 04-03-2027 COLORECTAL CANCER SCREENING COLORECTAL CANCER SCREENING [facility] Start: 04-03-2027 Screening for malignant neoplasm of colon [facility] Start: 09-27-2026 LIPID SCREEN LIPID SCREEN [facility] Start: 05-08-2026 DIABETES SCREEN DIABETES SCREEN [facility] Start: 05-08-2026 Diabetes Screening Diabetes Screening [facility] Start: 10-19-2024 DIABETES SCREEN DIABETES SCREEN [facility] Start: 07-12-2024 Covid-19 Vaccine () Covid-19 Vaccine () [facility] Start: 07-12-2024 Covid-19 Vaccine ( season) Covid-19 Vaccine ( season) [facility] Start: 07-12-2024 Influenza vaccination [facility] Start: 05-08-2024 ANNUAL PCP TEAM CHRONIC DISEASE VISIT ANNUAL PCP TEAM CHRONIC DISEASE VISIT [facility] Start: 05-08-2024 Hepatitis B surface antibody level LDL CHOLESTEROL [facility] Start: 01-01-2024 ANNUAL PCP TEAM CHRONIC DISEASE VISIT ANNUAL PCP TEAM CHRONIC DISEASE VISIT [facility] Start: 11-11-2023 Advance Directive Discussion Advance Directive Discussion [facility] Start: 09-05-2023 ANNUAL PCP TEAM CHRONIC DISEASE VISIT ANNUAL PCP TEAM CHRONIC DISEASE VISIT [facility] Start: 08-31-2023 ANNUAL PCP TEAM CHRONIC DISEASE VISIT ANNUAL PCP TEAM CHRONIC DISEASE VISIT [facility] Start: 08-31-2023 COVID-19 VACCINE (2 - Pfizer series) COVID-19 VACCINE (2 - Pfizer series) [facility] Comment on above: Postponed from 12/12/2021 (Declined at t his time) Postponed from 01/16 (Declined at this time) Start: 08-31-2023 SHINGRIX VACCINE (1 of 2) SHINGRIX VACCINE (1 of 2) [facility] Comment on above: Postponed from 2005 (Declined at t his time) Start: 08-31-2023 Urine microalbumin profile DTAP,TDAP,TD (1 - Tdap) [facility] Comment on above: Postponed from 1974 (Declined at t his time) Start: 07-26-2023 Influenza vaccination LUNG CANCER SCREENING [facility] Start: 07-26-2023 Screening for malignant neoplasm of lung Lung Cancer Screening [facility] Start: 07-12-2023 Covid-19 Vaccine ( season) Covid-19 Vaccine () [facility] Start: 07-12-2023 Influenza vaccination [facility] Start: 05-11-2023 ANNUAL PCP TEAM CHRONIC DISEASE VISIT ANNUAL PCP TEAM CHRONIC DISEASE VISIT [facility] Start: 05-11-2023 BP CONTROLLED (<130/80) BP CONTROLLED (<130/80) [facility] Start: 05-08-2023 End: 07-08-2023 Comprehensive metabolic 2000 panel - Serum or Plasma [facility] Work Phone: Comment on above: Expected: 05/08/2023, Expires: 3 Start: 05-08-2023 End: 07-08-2023 LIPID PANEL, NONFASTING [facility] Work Phone: Comment on above: Expected: 05/08/2023, Expires: 3 Start: 04-21-2023 PNEUMOVAX AGE 65 AND OVER WITH 5YR LOOKBACK (#1) PNEUMOVAX AGE 65 AND OVER WITH 5YR LOOKBACK (#1) [facility] Start: 01-07-2023 Patient discharge [facility] Start: 01-07-2023 [facility] Start: 01-03-2023 Care regimes management [facility] Start: 01-03-2023 Notification of physician [facility] Start: 01-03-2023 [facility] Start: 01-03-2023 Following clinical pathway protocol [facility] Start: 01-02-2023 Assessment of risk of venous thromboembolism [facility] Start: 01-02-2023 Incentive spirometry [facility] Start: 01-02-2023 Inhalation therapy procedure [facility] Start: 01-02-2023 Insertion of catheter into peripheral vein [facility] Start: 01-02-2023 Introduction of urinary catheter [facility] Start: 01-02-2023 Measuring intake and output [facility] Start: 01-02-2023 Notification of physician [facility] Start: 01-02-2023 Oxygen therapy [facility] Start: 01-02-2023 Providing care according to standard [facility] Start: 01-02-2023 Provision of activity privileges [facility] Start: 01-02-2023 Referral to service [facility] Start: 01-02-2023 Tobacco use cessation education [facility] Start: 01-02-2023 Vital signs measurements [facility] Start: 01-02-2023 [facility] Start: 01-02-2023 Electrocardiographic procedure [facility] Start: 01-02-2023 [facility] Start: 01-02-2023 Verification routine [facility] Start: 01-02-2023 Admission procedure [facility] Start: 01-02-2023 Patient referral to dietitian [facility] Start: 11-26-2022 End: 01-26-2023 Alpha 1 antitrypsin [Mass/volume] in Serum or Plasma [id number] Lab Routine Stage 3 severe COPD by GOLD classification (HCC) Expected: 11/26/2022, Expires: 01/26/2023 [facility] Work Phone: Comment on above: Expected: 11/26/2022, Expires: 3 Start: 11-26-2022 End: 01-26-2023 CBC W Auto Differential panel - Blood CBC + DIFF Lab Routine Hemoptysis Expected: 11/26/2022, Expires: 01/26/2023 [facility] Work Phone: Comment on above: Expected: 11/26/2022, Expires: 3 Start: 11-11-2022 ADVANCE DIRECTIVE DISCUSSION ADVANCE DIRECTIVE DISCUSSION [facility] Start: 10-19-2022 ANNUAL PCP TEAM CHRONIC DISEASE VISIT ANNUAL PCP TEAM CHRONIC DISEASE VISIT [facility] Start: 09-27-2022 Hepatitis B surface antibody level LDL CHOLESTEROL [facility] Start: 08-11-2022 End: 10-11-2022 CBC panel - Blood by Automated count CBC Lab Routine PAD (peripheral artery disease) (HCC) Expected: 08/11/2022, Expires: 10/11/2022 [facility] Work Phone: Comment on above: Expected: 08/11/2022, Expires: 2 Start: 08-11-2022 End: 10-11-2022 Comprehensive metabolic 2000 panel - Serum or Plasma COMP METABOLIC PANEL Lab Routine PAD (peripheral artery disease) (HCC) Expected: 08/11/2022, Expires: 10/11/2022 [facility] Work Phone: Comment on above: Expected: 08/11/2022, Expires: 2 Start: 08-11-2022 End: 10-11-2022 Lipid 1996 panel - Serum or Plasma LIPID PANEL BASIC Lab Routine PAD (peripheral artery disease) (HCC) Expected: 08/11/2022, Expires: 10/11/2022 [facility] Work Phone: Comment on above: Expected: 08/11/2022, Expires: 2 Start: 07-12-2022 Influenza vaccination [facility] Start: 12-12-2021 COVID-19 VACCINE (2 - Pfizer 3-dose series) COVID-19 VACCINE (2 - Pfizer 3-dose series) [facility] Start: 12-12-2021 COVID-19 VACCINE (2 - Pfizer series) COVID-19 VACCINE (2 - Pfizer series) [facility] Start: 11-11-2021 ADVANCE DIRECTIVE DISCUSSION ADVANCE DIRECTIVE DISCUSSION [facility] Start: 01-06-2021 BP CONTROLLED (<130/80) BP CONTROLLED (<130/80) [facility] Start: 2020 BONE DENSITY BONE DENSITY [facility] Start: 2020 Bone Density Screening Bone Density Screening [facility] Start: 2020 Screening for osteoporosis Bone Density Screening [facility] Start: 04-21-2019 PNEUMOCOCCAL: 65+ (2 - PCV) PNEUMOCOCCAL: 65+ (2 - PCV) [facility] Start: 2015 RSV Vaccine (1 - 1-dose 60+ series) RSV Vaccine (1 - 1-dose 60+ series) [facility] Start: 2015 RSV Vaccine (1 - Risk 60-74 years 1-dose series) RSV Vaccine (1 - Risk 60-74 years 1-dose series) [facility] Start: 2010 Influenza vaccination LUNG CANCER SCREENING [facility] Start: 2005 Influenza vaccination LUNG CANCER SCREENING [facility] Start: 2005 SHINGRIX VACCINE (1 of 2) SHINGRIX VACCINE (1 of 2) [facility] Start: 2000 COLOGUARD (FIT-DNA) COLOGUARD (FIT-DNA) [facility] Start: [address] COLONOGRAPHY [facility] Start: 2000 FECAL OCCULT BLOOD FECAL OCCULT BLOOD [facility] Start: 2000 Screening for malignant neoplasm of colon [facility] Start: 2000 SIGMOIDOSCOPY SIGMOIDOSCOPY [facility] Start: 1985 Zoledronic acid therapy ALPHA-1 ANTITRYPSIN DEFICIENCY SCREENING [facility] Start: 1974 DTaP/Tdap/Td vaccine (1 - Tdap) DTaP/Tdap/Td vaccine (1 - Tdap) [employer] Start: 1974 Urine microalbumin profile [facility] Start: 1961 PNEUMOCOCCAL: 65+ (1 - PCV) PNEUMOCOCCAL: 65+ (1 - PCV) [facility] End: 10-10-2022 CT LUNG SCREEN WO IVCON CT LUNG SCREEN WO IVCON Radiology Routine Smoker Encounter for screening for malignant neoplasm of lung 1 Occurrences starting 05/30/2022 until 10/10/2022 [facility] Work Phone: Comment on above: 1 Occurrences starting 05/30/2022 until 10/10/2022 End: 06-26-2024 CT LUNG SCREEN WO IVCON CT LUNG SCREEN WO IVCON Radiology Routine Encounter for screening for lung cancer Tobacco use current 1 Occurrences starting 05/28/2023 until 06/26/2024 [facility] Work Phone: Comment on above: 1 Occurrences starting 05/28/2023 until 06/26/2024 End: 09-30-2023 Dxa bone density study 1/> sites axial skel DXA-AXIAL SKELETON Radiology Routine Screening for osteoporosis Asymptomatic menopause 1 Occurrences starting 08/31/2022 until 09/30/2023 [facility] Work Phone: Comment on above: 1 Occurrences starting 08/31/2022 until 09/30/2023 End: 04-30-2023 Echocardiography ECHO Cardiology Routine DIAZ (dyspnea on exertion) 1 Occurrences starting 04/30/2022 until 04/30/2023 [facility] Work Phone: Comment on above: 1 Occurrences starting 04/30/2022 until 04/30/2023 EKG 12 Lead EKG 12 Lead ECG STAT 01/07/2023 6:50 PM EST [facility] Work Phone: End: 04-12-2023 LUNG DIFFUSION CAPACITY (DLCO) LUNG DIFFUSION CAPACITY (DLCO) PFT Routine Dyspnea on exertion 1 Occurrences starting 03/13/2022 until 04/12/2023 [facility] Work Phone: Comment on above: 1 Occurrences starting 03/13/2022 until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 Medical Records Department by calling [phone], Saturday through Saturday between 8 a.m. and [...] Call your local pharmacy or go to [email or web address] to find one close to you.3.Make use of household items: Use cat litter or old coffee grounds to dispose medications if other options arenot available. Mix your drugs with these household products, seal them in an airtight container andthrow it into the garbage. Call [facility]: [phone] to be sure your drugs can be [...] Patient Education Materials Heart Failure, Self Care, Afol-gf-Ezad Chronic Obstructive Pulmonary Disease Exacerbation, Ifzh-dz-Gtyd Medication Leaflets My discharge plan and instructions have been reviewed and explained to me and I,STEVEN KOENIG understand my current condition and have read and understand these discharge instructions. I have received a written copy of the plan/instructions. If I have questions, I am aware that I should contact my doctor. 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 [employer] Signature: Date/Time: Relationship to Patient: Witness Name/Signature: Date/Time: [facility]07-13-2025 Note Date of Service 05/23/2025 [...] The lasix was likely started by her hose tester so this provider is not changing it. She can discuss it further with her hose tester. Patient wanted to walk down to the [...] by EMMA DEMARCO on 05/23/2025 03:23 PM [facility]07-12-2025 Note. MICRO - Microbiology PROCEDURE: [...] Locations *1: This test was performed at: [address], [address] [place], [place] [address]85[address]-12-2025 Note. MICRO - Microbiology PROCEDURE: Blood Culture [...] Locations *1: This test was performed at: [address], [address] [place], [place] [address]85[address]-12-2025 Nurse Progress note Pt expressing frustration re: awaiting insurance approval for transfer to SNF. Pt angry with profanities, emotional support provided. TORI Sin in to see patient with update on process. PRN ativan administered per orders. Pt states she is considering leaving and going home today. Pt educated on plan of care and need for SNF services. DIRECTOR GEOTHERMAL OPERATIONS Emma made aware. Digitally Signed by Nayana Gudino RN on 05/22/2025 12:24 PM [facility]07-12-2025 Note Date of Service 05/22/2025 [...] patient that she cannot go to the halfway for a skilled stay until her insurance company gives approval. Likewise, they should pay her hospital bill because they are holding up this process. She is requestingto speak to the mental health social worker. She is aware that the mental health social worker is coming in today but we are [...] by EMMA DEMARCO on 05/22/2025 11:25 AM [facility]07-11-2025 Note Date of Service 05/21/2025 [...] approve her for a skilled stay at [facility]. If we do not get precert today, [...] by EMMA DEMARCO on 05/21/2025 04:16 PM [facility]07-07-2025 Note. MICRO - Microbiology PROCEDURE: [...] Locations *1: This test was performed at: [address], [address] [place], [place] [address]-07-2025 Note. MICRO - Microbiology PROCEDURE: Legionella Urine [...] Locations *1: This test was performed at: [address], [address] [place], [place] [address]-07-2025 Evaluation + Plan noteExtracted from: Title:History and Physical Author:ARLEN STRONG APRN-SERVICE DELIVERY DIRECTOR Date:05/17/25 1. Acute exacerbation of chr onic [...] agreeable to people coming into her home. green end worker reached out to APS for follow-up. [...] Date:07/30/2025 10:00:00 AM Scheduled Provider:EMMA QUEEN DO Location:[facility] Appointment Type:PC OV Future Scheduled Tests Laboratory* Basic Metabolic Panel 01/11/25 * N-Terminal proBNP 01/11/25 Radiology* MRI Cardiac Morphology & Func W+W/O Cont 02/23/25 * CT Low Dose Lung Cancer Screening (LDCT) 03/10/25 [facility] 07-07-2025 Note Date of Service 05/17/25 Chief Complaint Arrives via EMS with c/o SOB from home History of Present Illness 69-year-old female with past medical history significant for COPD, hypertension, hyperlipidemia, PAD, CAD s/p PCI, cardiomyopathy (LVEF 30% 12/2024), TBI, depression, anxiety, GERD, hepatitis C, tobacco use, chronic respiratory failure on 2 L nasal cannula. Patient presented to [facility] emergency department 05/16/2025 with increasing [...] agreeable to people coming into her home. green end worker reached out to APS for follow-up. [...] Ongoing Alcohol use disorder Asthma CAD in [place] artery Cardiomyopathy COPD with chronic bronchitis Depression, [...] Constant Order Digitally Signed by ARLEN STRONG APRN-SERVICE DELIVERY DIRECTOR on 05/17/2025 12:41 PM Digitally Signed by SHAUNA VALDEZ DO on 05/17/2025 06:07 PM [facility]07-06-2025 Note* Exam Date Time Procedure Performing Provider Status 05/16/25 9:11 PM EKG [ED AOH] - CV BRIAN TRINIDAD DO; Aut h (Verified) ECG Final Report Sinus rhythm Biatrial enlargement Probable left ventricular hypertrophy Nonspecific T abnormalities, lateral leads Baseline wander in lead(s) V2,V3 Electronic Signature: BRIAN TRINIDAD DO 05/16/2025 21:26:27 [facility]07-06-2025 Note* Exam Date Time Procedure Performing Provider Status 05/16/25 8:02 PM XR Chest 1 View ANTHONY MERIDA MD; [facility] (Verified) [id number] ORIGINAL EXAMINATION: ONE XRAY VIEW OF THE [...] 05/16/2025 8:27:46 PM Ordering Provider: BRIAN TRINIDAD [facility]04-26-2025 Hospital Discharge instructions Patient Education [...] oxygen Your health care provider or a asset protection representative from your territory sales manager medical company will show you how touse your [...] not move around. Follow instructions from your territory sales manager medical company about how to safely secure your tank. Make sure you have enough oxygen for the amount of time you will be away from home. If you are planning air travel, contact the airline to find out if they allow the use of an approved portable oxygen concentrator. You may also need documents from your health care provider and territory sales manager medical company before you travel. General safety tips If you use an oxygen cylinder, make sure it is in a stand or secured to an object that will not move (fixed object). If you use liquid oxygen, make sure its container is kept upright. If you use an oxygen concentrator: ?Tell your [employer] company. Make sure you are given priority [...] Summary Your health care provider or a asset protection representative from your territory sales manager medical company will show you how touse your [...] 01/17/2005 Document Revised: 04/16/2019 Document Reviewed: 05/21/2017 [employer] Patient Education 2020 [employer] 03/06/2025 11:50:46 Chronic Obstructive Pulmonary Disease, Pbrp-eg-Gdfj Chronic Obstructive Pulmonary Disease Chronic obstructive pulmonary [...] Follow these instructions at home: Medicines Take emib-zdp-rwlxmmv and prescription medicines only as told by [...] keep yourself as healthy as possible. Take wthw-ehp-thmvaxl and prescription medicines only as told by your doctor. If you smoke, stop. Smoking makes the problem worse. This information is not intended to replace advice given to you by your health care provider. Make sure you discuss any questions you have with your health care provider. Document Released: 04/15/2009 Document Revised: 10/10/2018 Document Reviewed: 12/02/2017 [employer] Patient Education 2020 [employer] Follow Up Care 03/04/2025 05:49:38 With:EMMA QUEEN DO Address: [address] [facility] [place] [address] [phone] When:3-5 days Comments:Please call to schedule your post-hospital follow-up appointment. [facility] 04-26-2025 Note Discharge Instructions Thank you for allowing [facility] to assist you with your healthcare needs. The following is importantdischarge information regarding your hospital visit. Your Care Team [facility] Your Diagnosis CAD in [place] artery Cardiomyopathy Chronic obstructive pulmonary disease IGOR [...] should change your mind you can call [facility] at [phone]. You indicated that you would be interested in assisted living facility. [facility] has an assisted living and they also have Medicaid waiver. Their phone number is [phone]. You should be able tocall them on Saturday for more information. Scheduled Follow-Up Appointments Appointment Type When With Where Contact Information StatusCT Thorax Screening w/o Contrast 03/10/2025 04:00 PM EDT [facility] [phone] Confirmed PC OV 07/30/2025 10:00 AM EDT EMMA QUEEN DO [address] [phone] Confirmed Follow Up Appointments Follow Up with EMMA QUEEN DO When:Within 3-5 days Where:[address] [place] [phone] Additional Information: Please call to schedule your [...] day Duration: 30 Days Pickup at [facility]acy [id number] 03/06 New predniSONE (prednisone 10mg tab (TAPER)) Taper 32-76-39-48-71-75-10-5 mg x 1 day until gone by mouth Once a day (in the morning) Duration: 8 Days Pickup at [facility]acy [id number] 03/06 Unchanged albuterol (albuterol MDI (90 mcg/ inh) CFC free inhalation aerosol) 2 puff(s) by inhalation Four (4) times a day as needed for as needed for wheezing COPD with chronic bronchitis Pickup at [facility]/pharmacy #[id number] 03/06 Unchanged albuterol (albuterol 0.63 mg/ 3 mL (0.021%) inhalation solution) 3 Milliliter by inhalation Four (4) times a day Unchanged amLODIPine (amLODIPine 5 mg oral tablet) 1 tab(s) by mouth Once a day 03/06 Unchanged aspirin (aspirin 81 mg oral tablet, chewable) 81 Milligram Chewed Once a day 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 03/06 Unchanged clopidogrel (clopidogrel 75 mg [...] Psychophysiologic insomnia 08pm 03/05 Pharmacy Information [facility]/pharmacy #[id number]: [address], [place] [id number] [phone] Please take this list to your next [...] may report side effects to FDA at [phone]. What other drugs will affect clopidogrel? Sometimes it is not safe to use certain medications at the same time. Some drugs can affect your blood levels of other drugs you take, which may increase side effects or make the medications less effective. Tell your doctor about all your other medicines, especially: a stomach acid optical instrument specialist such as omeprazole, Nexium, or Prilosec; an antidepressant such as citalopram, fluoxetine, sertraline, Cymbalta, Effexor, Lexapro, Pristiq, or Prozac; rifampin; a blood thinner--warfarin, Coumadin, Jantoven; or NSAIDs (nonsteroidal anti-inflammatory drugs)--aspirin, ibuprofen (Advil, Motrin), naproxen (Aleve), celecoxib, diclofenac, indomethacin, meloxicam, and others. This list is not complete. Other drugs may affect clopidogrel, including prescription and hzuk-duo-cmjjvjt medicines, vitamins, and herbal products. Not all [...] to ensure that the information provided by [employer]. ('[employer]') is accurate, up-to-date, and complete, but no guarantee is made to that effect. Drug information contained herein may be time sensitive. [facility] information has been compiled for use by healthcare practitioners and consumers in the [place] and therefore [employer] does not warrant that uses outside of the [place] are appropriate, unless specifically indicated otherwise. [employer] drug information does not endorse drugs, diagnose patients or recommend therapy. [employer] drug information isan informational resource designed to [...] effective or appropriate for any given patient. [employer] does not assume any responsibility for any aspect of healthcare administered with the aid of information [employer] provides. The information contained herein is not intended to cover all possible uses, directions, precautions, warnings, drug interactions, allergic reactions, or adverse effects. If you have questions about the drugs you are taking, check with your doctor, nurse or pharmacist. Copyright 6295-0275 [employer]. Version: 18.. Revision Date: 02/08/2021. Education Materials [...] oxygen Your health care provider or a asset protection representative from your territory sales manager medical company will show you how touse your [...] not move around. Follow instructions from your territory sales manager medical company about how to safely secure your tank. Make sure you have enough oxygen for the amount of time you will be away from home. If you are planning air travel, contact the airline to find out if they allow the use of an approved portable oxygen concentrator. You may also need documents from your health care provider and territory sales manager medical company before you travel. General safety tips [...] Summary Your health care provider or a asset protection representative from your territory sales manager medical company will show you how touse your [...] 01/17/2005 Document Revised: 04/16/2019 Document Reviewed: 05/21/2017 [employer] Patient Education 2020 [employer] Chronic Obstructive Pulmonary Disease Chronic obstructive [...] Follow these instructions at home: Medicines Take pxgq-mls-xvgslsw and prescription medicines only as told by [...] keep yourself as healthy as possible. Take dfdb-xpd-bwzzypa and prescription medicines only as told by your doctor. If you smoke, stop. Smoking makes the problem worse. This information is not intended to replace advice given to you by your health care provider. Make sure you discuss any questions you have with your health care provider. Document Released: 04/15/2009 Document Revised: 10/10/2018 Document Reviewed: 12/02/2017 [employer] Patient Education 2020 [employer] Additional Information VACCINATE! IT SAVES LIVES! Members of the community who have not yet received the COVID-19 vaccine and would like to receive it can visit one of [facility] vaccine clinics. There are many vaccine clinic locations within the [facility]. For locations and available times, please visit [email or web address].gov/. It is important to note that some COVID mobile vaccine clinics are held outdoors and may be canceled in rainy or stormy conditions. To learn more about pediatric vaccinations (ages 5-11), we invite you to visit the [facility] webpage. https://www.[email or web address]/pages/[email or web address]-Rbrmh-Kpboipcmdqs-Tdkgcfzzui-Pjkmz-Zub stions.htmlTo learn more about the COVID-19 vaccine, we invite you to visit the CDC website for a list of frequently asked questions.https://www.cdc.gov/coronavirus/2019-ncov/vaccines/faq.html [facility] Patient Portal Access Instructions: Stay connected with your healthcare team and access your personal medical information anytime with the [facility] Patient Portal. Please follow the directions below to create your [facility] account: 1.Access the email account you provided upon registration to the hospital/physician office.2.Look for an invitation email from [facility].3.Open the email and access the invitation link: AcceptInvitation to [facility].4.Fill in the required randle to create your account. To access your account, visit [email or web address]. Click the blue button labeled Access Patient Portal and then log in with the username and password that you created in the steps above. You will be able to view your test results, lab results, a summary of your visits, upcoming appointments and more. There is also a convenient messaging option where you can send secure messages to your p Matchfundvider. In addition, you will have the ability to download any documents or summaries to your computer and/or send the information securely to a physician. Remember that your healthcare information is confidential, so carefully consider who you will allowto register on the [facility] Patient Portal for access to your information. You can also access the [facility] Patient Portal on the [place] [facility] anchor.travelwhere larissa. Simply click on Patient Portal and then log into your account. If you would like to receive a full copy of your medical records, please contact the [facility] Medical Records Department by calling [phone], Saturday through Saturday between 8 a.m. and [...] Call your local pharmacy or go to http://bit.ly/3X3Tz3t to find one close to you.3.Make use of household items: Use cat litter or old coffee grounds to dispose medications if other options arenot available. Mix your drugs with these household products, seal them in an airtight container andthrow it into the garbage. Call [facility]: [phone] to be sure your drugs can be [...] Oxygen Use, Adult Chronic Obstructive Pulmonary Disease, Sgvm-ia-Nsmz Medication Leaflets Plavix My discharge plan and instructions have been reviewed and explained to me and I,STEVEN KOENIG understand my current condition and have read and understand these discharge instructions. I have received a written copy of the plan/instructions. If I have questions, I am aware that I should contact my doctor. 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 [employer] Signature: Date/Time: Relationship to Patient: Witness Name/Signature: Date/Time: [facility]04-26-2025 Note Date of Service 03/05/2025 Chief Complaint COPD Subjective 69-year-old female with past medical history significant for COPD, hypertension, hyperlipidemia, PAD, CAD s/p PCI, cardiomyopathy (LVEF 30% 12/2024), TBI, depression, anxiety, GERD, hepatitis C, anxiety, tobacco use, chronic respiratory failure on 2 L nasal cannula. Patient presented to [facility] emergency department 03/04/2025 via EMS [...] by ARLEN STRONG on 03/06/2025 08:56 AM [facility]04-25-2025 Nurse Progress note Hospice nurse in [facility] to get patient and patients family [...] Christina Logan RN on 03/05/2025 06:09 PM [facility]04-25-2025 Pastoral care Progress note Pastoral Care Note Entered On: 03/05/2025 9:50 EDT Performed On: 03/05/2025 9:48 EDT by Jatinder Turk Pastoral Care Type of Pastoral Visit : Initial visit Spiritual Care Visit Initiated by : Insurance Collector Spiritual Care Reason for Visit : General Spiritual Assessment : Not using [employer], Spiritual, not Temple, [employer] Spiritual Care Emotional [...] by Jatinder Turk on 03/05/2025 09:48 AM [facility]04-24-2025 Note Date of Service 03/04/2025 [...] 2 L nasal cannula. Patient presented to [facility] emergency department 03/04/2025 via EMS [...] Ongoing Alcohol use disorder Asthma CAD in [place] artery Cardiomyopathy COPD with chronic bronchitis Depression, [...] by ARLEN STRONG on 03/04/2025 03:24 PM [place] [address]-24-2025 Evaluation + Plan noteExtracted from: Title:History and Physical Author:ARLEN STROGN MANAGER INSTALLATION-SERVICE DELIVERY DIRECTOR Date:03/04/25 1. Chronic obstructive pulmo nary disease [...] Appointments Appointment Date:03/10/2025 04:00:00 PM Scheduled Provider: Location:[facility] Appointment Type:CT Chest (Low Dose) Screening/CT Lung (L Appointment Date:07/30/2025 10:00:00 AM Scheduled Provider:EMMA QUEEN DO Location:[facility] Appointment Type: OV Future Scheduled Tests Laboratory* Basic Metabolic Panel 01/11/25 * N-Terminal proBNP 01/11/25 Radiology* MRI Cardiac Morphology & Func W+W/O Cont 02/23/25 * CT Low Dose Lung Cancer Screening (LDCT) 03/10/25 [facility] 04-24-2025 HCoV 229E RNA IVANA+non-probe Ql (Nph)Not Detected *NA* (03/04/25 10:09 AM)AH [facility] Viro/Sero [id number] Note* Exam Date Time Procedure Performing Provider Status 03/04/25 6:21 AM XR Chest 1 View CLAUDE CAMPUZANO MD; Auth (Verified) [id number] ORIGINAL EXAMINATION: ONE XRAY VIEW OF THE [...] Date: 03/04/2025 6:41:45 AM Ordering Provider: [facility]04-24-2025 Note* Exam Date Time Procedure Performing Provider Status 03/04/25 6:01 AM EKG [ED AOH] - CV DONNALuis EMMANUEL ; Auth (Verified) ECG Final Report Sinus rhythm Probable left atrial enlargement Probable left ventricular hypertrophy Anterior Q waves, possibly due to LVH Compared to ECG at 02/19/2025 01:15:39 BORDERLINE ECG Electronic Signature: NEELYONATHANLuis EMMANUEL 03/04/2025 06:19:02 [facility]04-16-2025 Note. MICRO - Microbiology PROCEDURE: [...] Locations *1: This test was performed at: [address], [address] [place], [place] [address]-16-2025 Note. MICRO - Microbiology PROCEDURE: Blood Culture [...] Locations *1: This test was performed at: [address], [address] [place], [place] [address]-11-2025 Note. MICRO - Microbiology PROCEDURE: Streptococcus Pneumoniae [...] Locations *1: This test was performed at: [address]04-11-2025 Note. MICRO - Microbiology PROCEDURE: Legionella [...] Locations *1: This test was performed at: [facility], [address] [place] [address], [facility]- , [facility]02-03-2025 Hospital Discharge instructions Patient Education 12/14/2024 09:07:49 [...] Document Reviewed: 10/29/2014 ExitCare Patient Information 2015 [employer]. This information is not intended to replace [...] until you are awake and alert. Take ufwt-olq-wfencdl and prescription medicines only as told by [...] 08/18/2014 Document Revised: 10/10/2018 Document Reviewed: 02/16/2017 [employer] Patient Education 2020 [employer] A [employer]ink. Follow Up Care 11/30/2024 10:45:53 With:XAVIER GONZALEZ MD Address: [address] [place] [address] [address] [place] [address]- When:01/18/2025 10:00:00 [facility] 02-03-2025 Summary of episode note Discharge Instructions Thank you for allowing [facility] to assist you with your healthcare needs. The following is importantdischarge information regarding your hospital visit. Your Care Team EMMA QUEEN DO What to do next Scheduled Follow-Up Appointments Appointment Type When With Where Contact Information StatusEcho - Echocardiogram Adult 12/18/2024 02:00 PM EST [facility] [phone] Confirmed CV OV 01/18/2025 10:00 AM EDT [facility] Confirmed PC OV 01/21/2025 02:00 PM EDT EMMA QUEEN DO [address] [phone] Confirmed Follow Up Appointments Follow Up with XAVIER GONZALEZ MD When:01/18/2025 10:00 AM EDT Where:[address] [place] [address] [address] [place] [address]- The Following Activity and Diet Have Been [...] a day 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 Unchanged clopidogrel (clopidogrel 75 mg oral [...] Document Reviewed: 10/29/2014 ExitCare Patient Information 2015 [employer]. This information is not intended to replace [...] until you are awake and alert. Take okvx-coh-trtogxl and prescription medicines only as told by [...] 08/18/2014 Document Revised: 10/10/2018 Document Reviewed: 02/16/2017 [employer] Patient Education 2020 [employer] A Drink. Additional Information VACCINATE! IT SAVES LIVES! Members of the community who have not yet received the COVID-19 vaccine and would like to receive it can visit one of [facility] vaccine clinics. There are many vaccine clinic locations within the [facility]. For locations and available times, please visit [email or web address] It is important to note that some COVID mobile vaccine clinics are held outdoors and may be canceled in rainy or stormy conditions. To learn more about pediatric vaccinations (ages 5-11), we invite you to visit the [facility] webpage. [email or web address]/[email or web address] [email or web address] learn more about the COVID-19 vaccine, we invite you to visit the CDC website for a list of frequently asked questions.https://www.cdc.gov/coronavirus/2019-ncov/vaccines/faq.html [facility] Patient Portal Access Instructions: Stay connected with your healthcare team and access your personal medical information anytime with the [facility] Patient Portal. Please follow the directions below to create your [facility] account: 1.Access the email account you provided upon registration to the hospital/physician office.2.Look for an invitation email from [facility].3.Open the email and access the invitation link: AcceptInvitation to [facility].4.Fill in the required randle to create your account. To access your account, visit [employer]. Click the blue button labeled Access Patient [...] who you will allowto register on the [place] [facility] Patient Portal for access to your information. You can also access the [facility] on the [place] [facility] larissa. Simply click on Patient Portal and then log into your account. If you would like to receive a full copy of your medical records, please contact the [facility] Medical Records Department by calling [phone], Saturday through Saturday between 8 a.m. and [...] Call your local pharmacy or go to [email or web address] to find one close to you.3.Make use of household items: Use cat litter or old coffee grounds to dispose medications if other options arenot available. Mix your drugs with these household products, seal them in an airtight container andthrow it into the garbage. Call [facility]: [phone] to be sure your drugs can be [...] aware that I should contact my doctor. 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 Appointment to establish care is 01/31/2024 but inhaler is completely out and patient is having trouble with wheezing/sob. Pended. Patient requests call back at [phone]. Nena Dozier, RN documented in this encounterT[facility]02-13-2024 Miscellaneous Notes* Telephone Encounter - Christina Greco LPN - 12/24/2023 9:41 AM EST Spoke with pt and she reports she is going to stay in [place] and will be getting an apt scheduled with Dr.Jacqueline Beaver. Does not have an apt yet Pt has been waiting for her insurance to start at the beginning of the month. Christina Greco LPN * Telephone Encounter - Oly Durbin APRN.CNP - 12/24/2023 9:03 AM EST Patient was advised in September that she needed to find new PCP in [place] if she was going to remain there. [...] you. Irena Cantor LPN. documented in this encounterTwin City Hospital12-08-2023 Miscellaneous Notes* Telephone Encounter - [...] notify patient. Telma Austin documented in this encounterTwin City Hospital11-16-2023 Miscellaneous Notes* Telephone Encounter - Sal Lee LPN - 09/26/2023 8:08 AM EST Pt notified of pcp's message. Pt states she will be coming back to [place]. Is just in [place] for a few months to help out [...] to report that she is currently in [place] and will be there for the next several months. Patient is going to run out of medication and is unable to transfer prescriptions. Patient asking if provider would send prescriptions to [facility] in [place]. Pended 90 day request for review. Nena Dozier, RN documented in this encounterTwin City Hospital09-08-2023 NotePatient Outreach (NETNAV) STEVEN KOENIG ([id number]) 1955 F Date Time Provider Department 07/19/23 MELISSA VITAL During your visit today, we recorded the following information about you: Melissa Vital MA 07/19/2023 3:08 PM Addendum POPULATION HEALTH NAVIGATION OUTREACH Action/FYI Spoke with patient. Patient declined scheduling annual wellness exam/htn appointment. Patient states in [place] right now. Patient reminded of flu shot due Per 05/08/23 [facility] office note return in about 6 months (around 11/07/23) for medicare wellness exam. Patient Identified by Name and : YES, via phone Outreach Outcome/Action Spoke to patient / parent / legal guardian: Patient declined Did you use a PCP flex slot to schedule this appointment? N/A Reason for Outreach Care Gap or Scheduling/Wellness visits Payer: Payor: SINDI [employer] [facility] / Plan: [employer] HMO / Product Type: HMO / Care [...] Health Navigation Outreach [3910] Cmt: Navigator Kailash [facility] outreach Prescriptions as of 07/19/2023 - [...] 1 TABLET BY MOUTH EVERY DAY - cahcnaghduq-texsaurxr-hwtncueo (TRELEGY ELLIPTA) 200-62.5-25 mcg inhalation powder Inhale [...] none*09/28/2019 07/07/2020 PAD (peripheral artery disease) ([facility]) [I73.9] 09/28/2019 Anxiety and depression [F41.9, F32.A] 10/06/2019 Hypomagnesemia [E83.42] 10/22/2019 10/23/2019 Asthma [J45.909] 07/07/2020 07/07/2020 Prediabetes [R73.03] 02/04/2021 Chest pain [R07.9] 05/08/2021 Other chest pain [R07.89] 05/08/2021 Stenosis of carotid artery [I65.29] 05/08/2021 Mixed hyperlipidemia [E78.2] 05/08/2021 Abnormal stress test [R94.39] 08/26/2021 Dyspnea on exertion [R06.09] 08/26/2021 Coronary artery disease involving confederated coos tolbert*09/27/2021 Lung nodule [R91.1] 08/31/2022 History of hemoptysis [Z87.898] 11/20/2022 Encounter Status:Closed by MELISSA VITAL on 07/19/23[facility] NoteHNO ID: [id number] Author: Melissa Vital MA Service: ? Author Type: Nurses Aide Type: Progress Notes Filed: 07/19/2023 3:08 PM Note Text: POPULATION HEALTH NAVIGATION OUTREACH Action/FYI Spoke with patient. Patient declined scheduling annual wellness exam/htn appointment. Patient states in [place] right now. Patient reminded of flu shot due Per 05/08/23 SERVICE DELIVERY DIRECTOR office note return in about 6 months (around 11/07/23) for medicare wellness exam. Patient Identified by Name and : YES, via phone Outreach Outcome/Action Spoke to patient / parent / legal guardian: Patient declined Did you use a PCP flex slot to schedule this appointment? N/A Reason for Outreach Care Gap or Scheduling/Wellness visits Payer: Payor: [employer] / Plan: [employer] HMO / Product Type: HMO / Care Gap Reviewed:: Annual Wellness visit Controlling Blood Pressure Flu Vaccine Reminder: Reminder note to check Health Maintenance for items below Health Maintenance items due: BONE DENSITY Never done BP CONTROLLED (<130/80) due on 01/06/2021 INFLUENZA(1) due on 07/12/2023 Navigation Signature: Melissa Vital MA July 19, 2023 10:53 [facility]08-03-2023 Miscellaneous Notes* Telephone Encounter - Elizabeth Ly Ma - 06/13/2023 4:23 PM EDT Patient contacted via telephone regarding upcoming NEW patient appointment with Dr. Harris on 06/14/23. Patient informed of the following: [facility] is [facility] calling regarding your upcoming appointment with Dr. Harris. To avoid a delay in your care, please bring any radiology images that have been done [facility] on a disk to [...] this appointment Appointment canceled. documented in this encounterTwin City Hospital08-03-2023 Miscellaneous Notes* Telephone Encounter - [...] to be taking. Please call her at [phone]. documented in this encounterTwin City Hospital07-31-2023 Miscellaneous Notes* Telephone Encounter - [...] notify patient. Cailin Austin documented in this encounterTwin City Hospital07-28-2023 Miscellaneous Notes* Telephone Encounter - Jenn Almaraz RN - 06/07/2023 8:18 AM EDT Pharmacy electronically requests the following refill(s) Requested Prescriptions Pending Prescriptions Disp Refills amLODIPine (NORVASC) 10 mg tablet [Pharmacy Med Name: AMLODIPINE BESYLATE 10 MG TAB] 90 tablet 3 Sig: TAKE 1 TABLET BY MOUTH EVERY DAY Jenn Almaraz RN documented in this encounterTwin City Hospital06-30-2023 Miscellaneous Notes* Telephone Encounter - Hyacinth Suero LPN - 05/10/2023 2:59 PM EDT Spoke with pt gave information provided. P[t voices understanding. Will try cholesterol med uses [facility] in [place]. Please assist in scheduling with physical therapy [...] advise, Christina Franco RN documented in this encounterTwin City Hospital06-29-2023 NoteHNO ID: [id number] Author: Mely Griffin PA-C Service: ? Author Type: Physician Patrol [employer] Sheriff[employer] Office Type: Progress Notes Filed: 05/09/2023 2:05 PM [...] 12/14/2015 Bipolar affective disorder, currently active ([facility]) 01/18/2016 Dr. Angie Jones, [facility] Chronic bronchitis ([facility]) 07/26/2016 Closed skull fracture ([facility]) 1994 [facility] Coronary artery disease DDD (degenerative disc disease), cervical Endometriosis 2007 Essential hypertension 12/14/2015 GERD (gastroesophageal reflux disease) 03/13/2019 History of colon polyps History of gastric ulcer 12/14/2015 HLD (hyperlipidemia) Injury of left facial nerve 1994 PAD (peripheral artery disease) ([facility]) 09/28/2019 Recurrent major depression in partial remission ([facility]) 12/14/2015 S/P drug eluting coronary stent placement 08/25/2021 LAD and Dg2 Spinal stenosis Allergies: No Known Allergies isosorbide mononitrate ER (IMDUR) 30 mg 24 hr tablet TAKE 1 TABLET BY MOUTH EVERY DAY traZODone (DESYREL) 100 mg tablet Take 2 tablets by mouth daily at bedtime. tmczfskpntq-jcbfuumxv-okaomvwl (TRELEGY ELLIPTA) 200-62.5-25 mcg inhalation powder Inhale [...] TOTAL FACIAL NERVE DECOMPRESSION AND/REPAIR Left 1989 [facility] I reviewed the past medical history, family history, social history and surgical history with changes noted above and updated in EMR. IMMUNIZATIONS Prevnar - 05/11/2022 Pneumovax - 04/21/2018, 09/13/2011 Influenza - 08/31/2022 CO (more content not included)...[facility]06-[facility] History of Present illness Narrative* [...] 12/14/2015 Bipolar affective disorder, currently active ([facility]) 01/18/2016 Dr. Angie Jones, [facility] Chronic bronchitis ([facility]) 07/26/2016 Closed skull fracture ([facility]) 1994 [facility] Coronary artery disease DDD (degenerative disc disease), cervical Endometriosis 2007 Essential hypertension 12/14/2015 GERD (gastroesophageal reflux disease) 03/13/2019 History of colon polyps History of gastric ulcer 12/14/2015 HLD (hyperlipidemia) Injury of left facial nerve 1994 PAD (peripheral artery disease) ([facility]) 09/28/2019 Recurrent major depression in partial remission ([facility]) 12/14/2015 S/P drug eluting coronary stent placement 08/25/2021 LAD and Dg2 Spinal stenosis Allergies: No Known Allergies isosorbide mononitrate ER (IMDUR) 30 mg 24 hr tablet TAKE 1 TABLET BY MOUTH EVERY DAY traZODone (DESYREL) 100 mg tablet Take 2 tablets by mouth daily at bedtime. djabpzajwam-jffozedwl-zufxwxrt (TRELEGY ELLIPTA) 200-62.5-25 mcg inhalation powder Inhale [...] TOTAL FACIAL NERVE DECOMPRESSION &/REPAIR Left 1989 [facility] I reviewed the past medical [...] 57.2 kg (126 lb) LMP (LMP Unknown) EvU035% BMI 22.32 kg/m Gen: No acute distress. [...] necessary. Mely Griffin PA-C documented in this encounterTwin City Hospital06-28-2023 NoteHNO ID: [id number] Author: RT Aziza(Vicky) Service: ? Author Type: Scene Painter Type: Progress Notes Filed: 05/08/2023 1:01 PM [...] BY: RT Aziza(R) May 08, 2023 12:52 [facility]06-28-2023 NoteHNO ID: [id number] Author: Oly Smith APRN.LINDA Service: ? Author Type: Nurse Practitioner Type: Progress Notes Filed: 05/08/2023 2:36 PM Note Text: CC: Patient presents with: Follow Up: Blood pressure HPI Stevne Koenig is a 67 year old female [...] 12/14/2015 Bipolar affective disorder, currently active ([facility]) 01/18/2016 [facility] Chronic [facility]itis ([facility]) 07/26/2016 Closed skull fracture ([facility]) [address] [facility] Coronary artery disease DDD (degenerative disc disease), cervical Endometriosis 2007 Essential hypertension 12/14/2015 GERD (gastroesophageal reflux disease) 03/13/2019 History of colon polyps History of gastric ulcer 12/14/2015 HLD (hyperlipidemia) Injury of left facial nerve 1994 PAD (peripheral artery disease) ([facility]) 09/28/2019 Recurrent major depression in partial remission ([facility]) 12/14/2015 S/P drug eluting coronary [...] TOTAL FACIAL NERVE DECOMPRESSION AND/REPAIR Left 1989 [facility] ALLERGIES Patient has no known [...] 2 tablets by mouth daily at bedtime. bvytighvcsy-xncinhwhd-xxzvjtes (TRELEGY ELLIPTA) 200-62.5-25 mcg inhalation powder Inhale [...] BY MOUTH EVERY DA (more content not included)...[facility]06-[facility] History of Present illness Narrative* Oly Older, MANAGER INSTALLATION.SERVICE DELIVERY DIRECTOR - 05/08/2023 12:24 PM EDT CC: Patient [...] 12/14/2015 Bipolar affective disorder, currently active ([facility]) 01/18/2016 [facility] Chronic bronchitis ([facility]) 07/26/2016 Closed skull fracture ([facility]) [address] [facility] Coronary artery disease DDD (degenerative disc disease), cervical Endometriosis 2007 Essential hypertension 12/14/2015 GERD (gastroesophageal reflux disease) 03/13/2019 History of colon polyps History of gastric ulcer 12/14/2015 HLD (hyperlipidemia) Injury of left facial nerve 1994 PAD (peripheral artery disease) ([facility]) 09/28/2019 Recurrent major depression in partial remission ([facility]) 12/14/2015 S/P drug eluting coronary [...] TOTAL FACIAL NERVE DECOMPRESSION &/REPAIR Left 1989 [facility] ALLERGIES Patient has no known [...] 2 tablets by mouth daily at bedtime. fmfdbnvhbkp-gdjmrkehi-vpfvukjb (TRELEGY ELLIPTA) 200-62.5-25 mcg inhalation powder Inhale [...] F33.41 Stable 7. Coronary artery disease involving confed[place] coos coronary artery of confederated coos heart without angina pectoris- ICD9: 414.01, ICD10: I25.10 Follow-up with cardiology Prescription instructions reviewed with patient as applicable. Potential red flag symptoms discussed with the patient. Reviewed appropriate action plan to take if red flag symptoms occur. Patient agreeable to treatment plan. Oly Smith APRN.CNP documented in this encounterTwin City Hospital06-28-2023 Instructions* Patient Instructions* Oly Smith APRN.CNP - 05/08/2023 12:24 PM EDT [facility] [phone] documented in this encounterTwin City Hospital06-08-2023 NoteHNO ID: [id number] Author: Melissa Vital MA Service: ? Author Type: Nurses Aide Type: Progress Notes Filed: 04/18/2023 10:01 AM [...] Melissa Vital MA April 18, 2023 9:59 [facility]06-06-2023 NotePatient Outreach (NETNAV) STEVEN KOENIG ([id number]) 1955 F Date Time Provider Department 04/16/23 MELISSA VITAL During your visit today, we recorded the following information about you: Melissa Vital MA 04/16/2023 11:48 AM Signed POPULATION HEALTH NAVIGATION OUTREACH Action/FYI Spoke with patient. Patient states will call back later to schedule. Annual wellness/htn/HCC Declined my chart Will discuss AD with PCP Navigator Kailash amaya [facility] gap outreach F31.9 - Bipolar affective disorder, currently active (HCC) - [id number] Last Billed 08/31/2022 F33.41 - Recurrent major depression in partial remission (HCC) - [id number] Last Billed 08/31/2022 Patient Identified by Name and : YES, via phone Outreach Outcome/Action Spoke to patient / parent / legal guardian: Patient will return the call or ask for return call Did you use a PCP flex slot to schedule this appointment? N/A Reason for Outreach HCC or suspected condition Payer: Payor: [employer] / Plan: [employer] HMO / Product Type: HMO / Care [...] Health Navigation Outreach [3910] Cmt: Janette amaya [facility] outreach Prescriptions as of 04/18/2023 - isosorbide mononitrate ER (IMDUR) 30 mg 24 hr tablet TAKE 1 TABLET BY MOUTH EVERY DAY - predniSONE (DELTASONE) 10 mg tablet TAKE TWO DAILY FOR 5 DAYS THEN ONE DAILY FOR 10 DAYS - traZODone (DESYREL) 100 mg tablet Take 2 tablets by mouth daily at bedtime. - osqeygbonny-jchnddoip-haayhlef (TRELEGY ELLIPTA) 200-62.5-25 mcg inhalation powder Inhale [...] cardiovascular exam [Z01.810] 09/28/201909/12 (more content not included)...[facility]06-06-[facility]23 NoteHNO ID: [id number] Author: Melissa Vital MA Service: ? Author Type: Nurses Aide Type: Progress Notes Filed: 04/16/2023 11:48 AM Note Text: POPULATION HEALTH NAVIGATION OUTREACH Action/FYI Spoke with patient. Patient states will call back later to schedule. Annual wellness/htn/HCC Declined my chart Will discuss AD with PCP Navigator Kailash amaya HCC gap outreach F31.9 - Bipolar affective disorder, currently active (HCC) - AERBSQ24 Last Billed 08/31/2022 F33.41 - Recurrent major depression in partial remission (HCC) - [id number] Last Billed 08/31/2022 Patient Identified by Name and : YES, via phone Outreach Outcome/Action Spoke to patient / parent / legal guardian: Patient will return the call or ask for return call Did you use a PCP flex slot to schedule this appointment? N/A Reason for Outreach HCC or suspected condition Payer: Payor: KAILASH [employer] / Plan: KAILASH [email or web address] HMO / Product Type: HMO / Care Gap Reviewed:: Annual Wellness visit Controlling Blood Pressure Reminder: Reminder note to check Health Maintenance for items below Health Maintenance items due: BONE DENSITY Never done BP CONTROLLED (<130/80) due on 01/06/2021 LDL CHOLESTEROL due on 09/27/2022 ADVANCE DIRECTIVE DISCUSSION Never done Navigation Signature: Melissa Vital MA April 16, 2023 11:39 [facility]06-06-2023 History of Present illness Narrative* Melissa Vital MA - 04/16/2023 11:39 AM EDT POPULATION HEALTH NAVIGATION OUTREACH Action/FYI Spoke with patient. Patient states will call back later to schedule. Annual wellness/htn/HCC Declined my chart Will discuss AD with PCP Navigator Kailash amaya [facility] gap outreach F31.9 - Bipolar affective disorder, currently active (HCC) - [id number] Last Billed 08/31/2022 F33.41 - Recurrent major depression in partial remission (HCC) - OMVLYG52 Last Billed 08/31/2022 Patient Identified by Name and : YES, via phone Outreach Outcome/Action Spoke to patient / parent / legal guardian: Patient will return the call or ask for return call Did you use a PCP flex slot to schedule this appointment? N/A Reason for Outreach HCC or suspected condition Payer: Payor: KAILASH [employer] / Plan: SINDI [employer] HMO / Product Type: HMO / Care Gap Reviewed:: Annual Wellness visit Controlling Blood Pressure Reminder: Reminder note to check Health Maintenance for items below Health Maintenance items due: BONE DENSITY Never done BP CONTROLLED (<130/80) due on 01/06/2021 LDL CHOLESTEROL due on 09/27/2022 ADVANCE DIRECTIVE DISCUSSION Never done Navigation Signature: Melissa Vital MA April 16, 2023 11:39 AM documented in this encounterTwin City Hospital05-23-2023 NoteHNO ID: [id number] Author: Doron Self DO Service: Vascular Surgery Author Type: Physician Type: Progress Notes Filed: 04/09/2023 5:57 PM Note Text: NAME: STEVEN KOENIG CLINIC NO: [id number] DATE OF SERVICE: 04/02/2023 Subjective: Elle is [...] concerns. Doron Self D.O. KB/089 Audio #: [id number] Date Dictated: 04/02/2023 08:47:00 Date Typed: 04/06/2023 05:15:49 Date Revised:[facility]05-[facility]23 NoteHNO ID: [id number] Author: Doron Self, DO Service: ? Author Type: Physician Type: Progress Notes Filed: 04/02/2023 10:58 AM Note Text: This office note has been dictated. Doron Self, DOCFayette County Memorial Hospital04-19-2023 Miscellaneous Notes* Telephone Encounter - Doron [...] advise. Doron Navarrete LPN documented in this encounterTwin City Hospital02-27-[address] Teague [facility] January 07, 2023 11:57am Note Date/Time January 07, 2023 11:47am [facility] Medical Records Department [address] [place] [address] Instructions for Home/Discharge Instructions 01/07/23 1143 MR#: [id number] Acct: [id number] Name: STEVEN KOENIG Rep #:[id number] : 1955 67 From: Siddhartha Tegaue DO PCP: Dr. Ulises Hermoslilo MD Status:A DM IN Discharge Instructions Diet [...] MD; Dr. Joel Sauer DO; Dr. Ulises Hemrosillo MD ~ Signed [facility] Work Phone: 1(280) 348-265402-26-[address] Sauer [facility] January 06, 2023 12:31pm Note Date/Time January 06, 2023 7:53am [facility] Medical Records Department [address] [place] [address] Progress Note - Hospitalist 01/06/23 0749 MR#: [id number] Acct: [id number] Name: STEVEN KOENIG Rep #:[id number] : 1955 67 From: Joel Sauer DO PCP: Dr. Ulises Hermosillo MD Status:A DM IN Location: [place] [address] Reason for Visit Reason for Visit: Diagnoses [...] 01/03/23 10:58 AG (Rec: 01/03/23 10:58 AG [id number]) Nutrition Malnutrition Evidence of Malnutrition Exists Yes [...] to discharge. Charges/Coding Visit Charges Inpatient E&M: 90798 Subs Hosp L2 01/06/23 1231 <Electronically signed by Joel Sauer DO> Cosigner Signature (if applicable): CC: ~ Signed [facility] Work Phone: 1(290) 878-749102-26-[address] Luque [facility] January 06, 2023 3:54am Note Date/Time January 06, 2023 3:54am [facility] Medical Records Department [address] [place] [address] Progress Note - Hospitalist 01/06/23352 MR#: [id number] Acct: [id number] Name: STEVEN KOENIG Rep #:[id number] : 1955 67 From: Linda Luque MD PCP: Dr. Ulises Hermosillo MD Status:A DM IN Location: [place] [address] Hospitalist Note Preliminary respiratory culture with strep pneumo, Rocephin added. 01/06/23353 <Electronically signed by Linda Luque MD> Cosigner Signature (if applicable): CC: ~ Signed [facility] Work Phone: 1(104) 547-840002-25-[address] Sauer [facility] January 05, 2023 3:15pm Note Date/Time January 05, 2023 8:27am [facility] Medical Records Department [address] [place] [address] Progress Note - Hospitalist 01/05/23 0825 MR#: [id number] Acct: [id number] Name: STEVEN KOENIG Rep #:[id number] : 1955 67 From: Joel Sauer DO PCP: Dr. Ulises Hermosillo MD Status:A DM IN Location: [place] [address] Reason for Visit Reason for Visit: Diagnoses [...] 01/03/23 10:58 AG (Rec: 01/03/23 10:58 AG [id number]) Nutrition Malnutrition Evidence of Malnutrition Exists Yes [...] the . Charges/Coding Visit Charges Inpatient E&M: 90992 Subs Hosp L2 01/05/23 8701 <Electronically signed by Joel Sauer DO> Cosigner Signature (if applicable): CC: ~ Signed [facility] Work Phone: 1(454) 522-898602-24-[address] Sauer [facility] January 04, 2023 4:33pm Note Date/Time January 04, 2023 8:14am [facility] Medical Records Department [address] [place] [address] Progress Note - Hospitalist 01/04/23811 MR#: [id number] Acct: [id number] Name: STEVEN KOENIG Rep #:[id number] : 1955 67 From: Joel Sauer DO PCP: Dr. Ulises Hermosillo MD Status:A DM IN Location: [place] [address] Reason for Visit Reason for Visit: Diagnoses [...] 01/03/23 10:58 AG (Rec: 01/03/23 10:58 AG [id number]) Nutrition Malnutrition Evidence of Malnutrition Exists Yes [...] SCDs, Lovenox. Charges/Coding Visit Charges Inpatient E&M: 03283 Subs Hosp L2 01/04/23 1524 <Electronically signed [...] Cosigner Signature (if applicable): cc: ~* Signed [facility] Work Phone: 1(139) 126-630102-23-[address] Sauer [facility] January 03, 2023 3:30pm Note Date/Time January 03, 2023 8:33am [facility] Medical Records Department [address] [place] [address] [place] [address] Progress Note - Hospitalist 01/03/23828 MR#: [id number] Acct: [id number] Name: STEVEN KOENIG Rep #:[id number] : 1955 67 From: Joel Sauer DO PCP: Dr. Ulises Hermosillo MD Status:A DM IN Location: [place] [address] Reason for Visit Reason for Visit: Diagnoses [...] Clarity Clear, Urine pH 6.0, Ur Specific Newton 1.005, Urine Protein Negative, Urine Glucose (UA) [...] % (Auto) 50.1, Lymph % (Auto) 37.2, Lander % (Auto) 9.6, Eos % (Auto) 1.4, [...] 92.4 H, Lymph % (Auto) 5.4 L, Lander % (Auto) 0.9, Eos % (Auto) 0.0, [...] 21:10 EST Reading Location ID and State: [facility] / [place] , Service support , Physical Exam Const [...] SCDs, Lovenox. Charges/Coding Visit Charges Inpatient E&M: 63801 Subs Hosp L2 01/03/23 1530 <Electronically signed by Joel Sauer DO> Cosigner Signature (if applicable): CC: ~ Signed [facility] Work Phone: 1(250) 197-593202-22-2023 History and physical note Author Dr. Luque [facility] January 02, 2023 9:37pm Note Date/Time January 02, 2023 9:19pm [facility] Medical Records Department [address] [place] [address] History & Physical Exam 01/02/232135 MR#: [id number] Acct: [id number] Name: STEVEN KOENIG Rep #:[id number] : [...] abuse, Tobacco use who presents to the [facility] ED on 01/02/23 with history of severalcomplaints [...] Clarity Clear, Urine pH 6.0, Ur Specific Newton 1.005, Urine Protein Negative, Urine Glucose (UA) [...] % (Auto) 50.1, Lymph % (Auto) 37.2, Lander % (Auto) 9.6, Eos % (Auto) 1.4, [...] 21:10 EST Reading Location ID and State: [address] [place] [address] , Service support , Assessment & Plan Assessment/Plan (1) Chest pain: (2) COPD exacerbation: (3) Desire for detoxification: PLAN: Plan The patient is a 67 y/o F w/ PMHx: COPD, HTN, HLD, Depression and Anxiety, EtOH abuse, Tobacco use who presents to the [facility] ED on 01/02/23 with history of severalcomplaints [...] 76 minutes. Charges/Coding Visit Charges Inpatient E&M: 97526 Init Hosp L3 01/02/232136 <Electronically signed by Linda Luque MD> Cosigner Signature (if applicable): CC: Dr. Linda Luque MD; Dr. Ulises Hermosillo MD~ Signed [facility] Work Phone: 1(795) 236-875102-22-[address] Koroma [facility] January 02, 2023 9:25pm Note Date/Time January 02, 2023 6:55pm [facility] Medical Records Department [address] [place] [address] Emergency Department Summary 01/02/23 MR#: [id number] Acct: [id number] Name: STEVEN KOENIG Rep #:[id number] : [...] % (Auto) 50.1 Lymph % (Auto) 37.2 Lander % (Auto) 9.6 Eos % (Auto) 1.4 [...] Clarity Clear Urine pH 6.0 Ur Specific Newton 1.005 Urine Protein Negative Urine Glucose (UA) [...] (Auto) Neut % (Auto) Lymph % (Auto) Lander % (Auto) Eos % (Auto) Baso % [...] Color Urine Clarity Urine pH Ur Specific Newton Urine Protein Urine Glucose (UA) Urine Ketones [...] 21:10 EST Reading Location ID and State: [facility] / [place] , Service support , Discharge Plan Dx/Rx/DC Orders Clinical Impression: Chronic obstructive lung disease, Alcohol intoxication, Desire for detoxification, Chest pain Disposition Disposition: Acute Care Hospital [facility] What to do if you have Problems For any increased pain, shortness of breath, bleeding, nausea or vomiting, chestpain, or any unexpected problems, contact your Primary Care Provider. Call [facility] ([phone]) or report to the closest Emergency Room. Call 911 if necessary. 01/02/232124 <Electronically signed by Miah Koroma MD> Cosigner Signature (if applicable): CC: Dr. Ulises Hermosillo MD ~ Signed [facility] Work Phone: 1(877) 655-195302-22-[address] Koroma [facility] January 02, 2023 9:25pm Note Date/Time January 02, 2023 6:55pm [facility] Medical Records Department [address] [place] [address] Emergency Department Summary 01/02/23 MR#: [id number] Acct: [id number] Name: STEVEN KOENIG Rep #:[id number] : [...] % (Auto) 50.1 Lymph % (Auto) 37.2 Lander % (Auto) 9.6 Eos % (Auto) 1.4 [...] Clarity Clear Urine pH 6.0 Ur Specific Newton 1.005 Urine Protein Negative Urine Glucose (UA) [...] (Auto) Neut % (Auto) Lymph % (Auto) Lander % (Auto) Eos % (Auto) Baso % [...] Color Urine Clarity Urine pH Ur Specific Newton Urine Protein Urine Glucose (UA) Urine Ketones [...] Chest pain Disposition Disposition: Acute Care Hospital [facility] What to do if you have Problems For any increased pain, shortness of breath, bleeding, nausea or vomiting, chestpain, or any unexpected problems, contact your Primary Care Provider. Call [facility] ([phone]) or report to the closest Emergency Room. Call 911 if necessary. 01/02/232124 <Electronically signed by Miah Koroma MD> Cosigner Signature (if applicable): CC: Dr. Ulises Hermosillo MD ~ Signed [facility] Work Phone: 1(464) 211-513102-21-2023 Miscellaneous Notes* Telephone Encounter - Diana KruseGIO jauregui - 01/01/2023 3:42 PM EST Behavioral Health Social Work Progress Note Patient identified for [facility] from: PCP Reason for referral: Resources Behavioral Health Resources: Substance abuse [facility] encounter type: Telephone Encounter Attempts to Outreach: 1 attempt Referral made: Psychology - External Psychology-External referral type: Alcohol/Drug Treatment Reason for external referral: Patient seeking half-way support, Patient needs services closer to home [...] look into for detoxification and substance abuse: [facility] [address] [place] [address] [address] [facility] [address] [place] [address] [address], [place] [id number] Patient states she may end up just going to [facility] if she can't find anywhere to go to assist as she really needs to detox. Advised to call these numbers and if additional assistance is needed to inform this SW. GIO Cardona January 01, 2023 documented in [facility]-2023 NoteHNO ID: [id number] Author: Oly Smith APRN.CNP Service: ? Author [...] 12/14/2015 Bipolar affective disorder, currently active ([facility]) 01/18/2016 Dr. [facility]ie [facility] Chronic bronchitis ([facility]) 07/26/2016 Closed skull fracture ([facility]) 1994 [facility] Coronary artery disease DDD (degenerative disc disease), cervical Endometriosis 2007 Essential hypertension 12/14/2015 GERD (gastroesophageal reflux disease) 03/13/2019 History of colon polyps History of gastric ulcer 12/14/2015 HLD (hyperlipidemia) Injury of left facial nerve 1994 PAD (peripheral artery disease) ([facility]) 09/28/2019 Recurrent major depression in partial remission ([facility]) 12/14/2015 S/P drug eluting coronary [...] TOTAL FACIAL NERVE DECOMPRESSION AND/REPAIR Left 1989 [facility] ALLERGIES Patient has no known allergies. MEDICATIONS traZODone (DESYREL) 100 mg tablet Take 2 tablets by mouth daily at bedtime. lpvpdyyxenb-nztqkdjrs-cglgornm (TRELEGY ELLIPTA) 200-62.5-25 mcg inhalation powder Inhale [...] Cancer Sister 61 l (more content not included)...[facility]02-21-2023 NoteHNO ID: [id number] Author: RT Aziza(R) Service: ? Author Type: Scene Painter Type: Progress Notes Filed: 01/01/2023 1:02 PM [...] BY: RT Aziza(R) January 01, 2023 12:51 [facility]02-21-2023 Instructions* Patient Instructions* Oly Smith [...] will start drinking again. documented in [facility]02-[facility]23 History of Present illness Narrative* [...] 12/14/2015 Bipolar affective disorder, currently active ([facility]) 01/18/2016 Dr. Angie Jones, [facility] Chronic bronchitis ([facility]) 07/26/2016 Closed skull fracture ([facility]) 1994 [facility] Coronary artery disease DDD (degenerative disc disease), cervical Endometriosis 2007 Essential hypertension 12/14/2015 GERD (gastroesophageal reflux disease) 03/13/2019 History of colon polyps History of gastric ulcer 12/14/2015 HLD (hyperlipidemia) Injury of left facial nerve 1994 PAD (peripheral artery disease) ([facility]) 09/28/2019 Recurrent major depression in partial remission ([facility]) 12/14/2015 S/P drug eluting coronary [...] TOTAL FACIAL NERVE DECOMPRESSION &/REPAIR Left 1989 [facility] ALLERGIES Patient has no known allergies. MEDICATIONS traZODone (DESYREL) 100 mg tablet Take 2 tablets by mouth daily at bedtime. ejfwclrbqmk-esmmwmmzq-jopqubbf (TRELEGY ELLIPTA) 200-62.5-25 mcg inhalation powder Inhale [...] like to discuss inpatient rehab facility with mental health social worker, referral placed Close follow-up in [...] care. Oly Smith APRN.CNP documented in this encounterTwin City Hospital02-12-2023 Hospital Discharge instructions Patient Education [...] your ankles gets worse Dizziness or weakness 2947-4181 [employer]. [address] [place] [address]. All rights reserved. This information is not intended as a substitute for professional medical care. Always follow [facility] professional's instructions. 12/23/2022 16:02:38 Anxiety Reaction [...] relieved by rest and mild pain reliever 8422-48[address] [employer]. [address] [place] [address], [place] [address]. All rights reserved. This information is not intended as a substitute for professional medical care. Always follow yourhealthcare professional's instructions. Follow Up Care 12/23/2022 13:42:18 With:ULISES HERMOSILLO MD Address: [address] [place] [address]- When:2-4 days Comments:Return to ED if symptoms worsen [facility] Christin 02-12-2023 Note Discharge Instructions Thank you for allowing [facility] to assist you with your healthcare needs. [...] to ED if symptoms worsen Where: [address] [place] [address]- Allergies NKA Medications Please ask your [...] your ankles gets worse Dizziness or weakness 2481-8062 [employer]. [address] [place] [address], [place] [address]. All rights reserved. This information is not [...] relieved by rest and mild pain reliever 7507-39[address] [employer]. [address] [place] [address]. All rights reserved. This information is not intended as a substitute for professional medical care. Always follow yourhealthcare professional's instructions. Additional Information VACCINATE! IT SAVES LIVES! Members of the community who have not yet received the COVID-19 vaccine and would like to receive it can visit one of [facility] vaccine clinics. There are many vaccine clinic locations within the [facility]. For locations and available times, please visit [email or web address]. It is important to note that some COVID mobile vaccine clinics are held outdoors and may be canceled in rainy orstormy conditions. To learn more about pediatric vaccinations (ages 5-11), we invite you to visit the [facility] webpage. [email or web address]-[email or web address] stions.htmlTo learn more about the COVID-19 vaccine, we invite you to visit the [employer] website for a list of frequently asked questions. [email or web address] [facility] Patient Portal Access Instructions: Stay connected with your healthcare team and access your personal medical information anytime with the [facility] Patient Portal. If you would like a full copy of your medical records please contact the [facility] Medical Records Department Saturday through Saturday between 8a.m. and 4:30p.m. Please follow the directions below to access the portal: 1.Access the email account you provided upon registration to the [facility].2.Look for an invitation email from [facility].3.Open the email and access the invitation link: Accept Invitation to [facility]4.Fill in the required randle to create your account. Sign into [email or web address] with your username and password that you [...] you will allow to register on the [facility] [employer] Patient Portal for access to your information. You can also access the [employer] Patient Portal on the [employer] larissa. Simply click on Health Records under RichRelevanceta and then click on the Anthony logo. [...] Call your local pharmacy or go to http://bit.ly/3U6Ce9p to find one close to you.3.Make use of household items: Use cat litter or old coffee grounds to dispose medications if other options arenot available. Mix your drugs with these household products, seal them in an airtight container andthrow it into the garbage. Call [facility]: [phone] to be sure your drugs can be [...] aware that I should contact my doctor. 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 Signature: Date/Time: Relationship to Patient: Witness Name/Signature: Date[facility]Time: [facility] Note ORIGINAL EXAMINATION: ONE XRAY VIEW OF [...] Sign Date: 12/23/2022 2:43:01 PM Ordering Provider: [facility]02-12-2023 Note ORIGINAL EXAMINATION: ONE XRAY [...] 01/01/23. * Telephone Encounter - Aurea Fitzpatrick [facility] - 12/14/2022 11:36 AM EST [...] sent to the pharmacy. Call patient at [phone] (cell) [facility] documented in this encounterTwin City Hospital01-16-2023 NoteHNO ID: [id number] Author: Isauro Asher MD Service: ? Author Type: Physician Type: Progress Notes Filed: 11/26/2022 2:01 PM Note Text: . [facility] [place] Note Patient name: Steven Koenig PCP: Ulises Hermosillo MD CC: Hemoptysis HPI: Steven Koenig 67 year old female current heavy smoker, over 100 pack years with PMH significant for bipolar affective disorder, h/o alcohol abuse, GERD, PAD, HLD, CAD s/p stent, severe COPD (FEV1 0.83 L 36%), oxygen dependence, previously following in [facility]. Recent admission at [facility] in [place] for AECOPD. CXR reported as normal. Discharged [...] No chest pain or current cough. DME: [facility] DATA: PFT 05/2022: Review of spirometry shows severe obstruction without significant improvement post bronchodilators and moderate reduction in diffusing capacity Labs: Laboratory testing at [facility], normal CBC and platelet count. Negative COVID and influenza Imaging / Diagnostic Studies: DATE OF EXAM: Jul 26 2022 4:27PM [facility] - CT LUNG SCREEN WO IVCON [...] 12/14/2015 Bipolar affective disorder, currently active ([facility]) 01/18/2016 Dr. Angie [facility] Chronic bronchitis ([facility]) 07/26/2016 Closed skull fracture ([facility]) 1994 [facility] Coronary artery disease DDD (degenerative disc disease), cervical Endometriosis 2007 Essential hypertension 12/14/2015 GERD (gastroesophageal reflux disease) 03/13/2019 History of colon polyps History of gastric ulcer 12/14/2015 HLD (hyperlipidemia) Injury of left facial nerve 1994 PAD (peripheral artery disease) ([facility]) 09/28/2019 Recurrent major depression in partial remission ([facility]) 12/14/2015 S/P drug eluting coronary stent placement 08/25/2021 LAD and Dg2 Spinal stenosis ALLERGIES No Known Allergies albuterol HFA (VENTOLIN HFA) 90 mcg/actuation inhaler Inhale 2 Puffs as instructed every 6 hours as needed for wheezing/shortness of breath. ruachwxmest-cocbsyulo-hghzndgh (TRELEGY ELLIPTA) 200-62.5-25 mcg inhalation powder Inhale [...] RELIEF) 0.2 % drop (more content not included)...[facility]01-16-2023 History of Present illness Narrative* Isauro Asher MD - 11/26/2022 12:45 PM EST Images from the original note were not included. . [facility] [place] Note Patient name: Steven Koenig PCP: Ulises Hermosillo MD CC: Hemoptysis HPI: Steven Koenig 67 year old female current heavy smoker, over 100 pack years with PMH significant for bipolar affective disorder, h/o alcohol abuse, GERD, PAD, HLD, CAD s/p stent, severe COPD (FEV1 0.83 L 36%), oxygen dependence, previously following in [facility]. Recent admission at [facility] in [place] for AECOPD. CXR reported as normal. Discharged [...] No chest pain or current cough. DME: [facility] DATA: PFT 05/2022: Review of spirometry shows severe obstruction without significant improvement post bronchodilators and moderate reduction in diffusing capacity Labs: Laboratory testing at [facility], normal CBC and platelet count. Negative COVID and influenza Imaging / Diagnostic Studies: DATE OF EXAM: Jul 26 2022 4:27PM [facility] [place] CT LUNG SCREEN WO IVCON [...] Alcohol use disorder 01/18/2016 Dr. Angie Jones, [facility] Anxiety 12/14/2015 Bipolar affective disorder, currently active ([facility]) 01/18/2016 Dr. Angie [facility] Chronic bronchitis ([facility]) 07/26/2016 Closed skull fracture ([facility]) 1994 [facility] Coronary artery disease DDD (degenerative disc disease), cervical Endometriosis 2007 Essential hypertension 12/14/2015 GERD (gastroesophageal reflux disease) 03/13/2019 History of colon polyps History of gastric ulcer 12/14/2015 HLD (hyperlipidemia) Injury of left facial nerve 1994 PAD (peripheral artery disease) ([facility]) 09/28/2019 Recurrent major depression in partial remission ([facility]) 12/14/2015 S/P drug eluting coronary stent placement 08/25/2021 LAD and Dg2 Spinal stenosis ALLERGIES No Known Allergies albuterol HFA (VENTOLIN HFA) 90 mcg/actuation inhaler Inhale 2 Puffs as instructed every 6 hours asneeded for wheezing/shortness of breath. tozkiwctwnq-obzmqnxyf-aqfppfny (TRELEGY ELLIPTA) 200-62.5-25 mcg inhalation powder Inhale [...] TOTAL FACIAL NERVE DECOMPRESSION &/REPAIR Left 1989 [facility] PMH, Social history, family history [...] cessation strongly encouraged Isauro Asher MD [facility] [place] documented in this encounterTwin City Hospital12-16-2022 Hospital Discharge instructions Patient Education [...] your ankles gets worse Dizziness or weakness [phone] [employer]. [address] [place] [address]. All rights reserved. This information is not intended as a substitute for professional medical care. Always follow yourhealthcare professional's instructions. Follow Up Care 10/26/2022 16:18:34 With:Go to emergency room if symptoms worsen Address:Unknown When:2-4 days With:ULISES HERMOSILLO MD Address: [address] [place] [address]- When:2-4 days [facility] 12-16-2022 Note Discharge Instructions Thank you for allowing [facility] to assist you with your healthcare needs. [...] MD When Within 2-4 days Where: [address] [place] [address]- Allergies NKA Medications Please ask [...] may report side effects to FDA at 7-067-JPW-4497. What other drugs will affect budesonide and formoterol? Sometimes it is not safe to use certain medications at the same time. Some drugs can affect your blood levels of other drugs you take, which may increase side effects or make the medications less effective. Many drugs can affect budesonide and formoterol. This includes prescription and mffk-icb-seoeqsf medicines, vitamins, and herbal products. Not all [...] to ensure that the information provided by [employer]. ('[employer]') is accurate, up-to-date, and complete, but no guarantee is made to that effect. Drug information contained herein may be time sensitive. [facility] information has been compiled for use by healthcare practitioners and consumers in the [place] and therefore [employer] does not warrant that uses outside of the [place] are appropriate, unless specifically indicated otherwise. [employer] drug information does not endorse drugs, diagnose patients or recommend therapy. [employer] drug information isan informational resource designed to [...] effective or appropriate for any given patient. [employer] does not assume any responsibility for any aspect of healthcare administered with the aid of information [employer] provides. The information contained herein is not intended to cover all possible uses, directions, precautions, warnings, drug interactions, allergic reactions, or adverse effects. If you have questions about the drugs you are taking, check with your doctor, nurse or pharmacist. Copyright 6606-8673 [employer]. Version: 9.02. Revision Date: 07/08/2019. prednisone (PRED [...] may report side effects to FDA at 7-879-ZLD-9914. What other drugs will affect prednisone? Sometimes [...] may affect prednisone. This includes prescription and cgrf-qwx-qazingj medicines, vitamins, and herbal products. Not all [...] to ensure that the information provided by [employer]. [employer]') is accurate, up-to-date, and complete, but no guarantee is made to that effect. Drug information contained herein may be time sensitive. [employer] information has been compiled for use by healthcare practitioners and consumers in the [place] and therefore [employer] does not warrant that uses outside of the [place] are appropriate, unless specifically indicated otherwise. [employer] drug information does not endorse drugs, diagnose patients or recommend therapy. [employer] drug information isan informational resource designed to [...] effective or appropriate for any given patient. [employer] does not assume any responsibility for any aspect of healthcare administered with the aid of information [employer] provides. The information contained herein is not intended to cover all possible uses, directions, precautions, warnings, drug interactions, allergic reactions, or adverse effects. If you have questions about the drugs you are taking, check with your doctor, nurse or pharmacist. Copyright 8538-1027 [employer]. Version: 10.. Revision Date: 02/05/2019. doxycycline (oral/injection) [...] or life-threatening conditions such as anthrax or [place] spotted fever. The benefit of treating a [...] may report side effects to FDA at 0-720-JZW-3419. What other drugs will affect doxycycline? Sometimes it is not safe to use certain medications at the same time. Some drugs can affect your blood levels of other drugs you take, which may increase side effects or make the medications less effective. Other drugs may affect doxycycline, including prescription and paix-kti-avcbvic medicines, vitamins, and herbal products. Tell your [...] to ensure that the information provided by [employer]. ('[employer]') is accurate, up-to-date, and complete, but no guarantee is made to that effect. Drug information contained herein may be time sensitive. [facility] information has been compiled for use by healthcare practitioners and consumers in the [place] and therefore [facility] does not warrant that uses outside of the [place] are appropriate, unless specifically indicated otherwise. [employer] drug information does not endorse drugs, diagnose patients or recommend therapy. [employer] drug information isan informational resource designed to [...] effective or appropriate for any given patient. [facility] does not assume any responsibility for any aspect of healthcare administered with the aid of information [facility] provides. The information contained herein is not intended to cover all possible uses, directions, precautions, warnings, drug interactions, allergic reactions, or adverse effects. If you have questions about the drugs you are taking, check with your doctor, nurse or pharmacist. Copyright 0701-2904 [employer]. Version: 21.04. Revision Date: 09/14/2020. Education Materials [...] your ankles gets worse Dizziness or weakness 3360-6015 [employer]. [address] [place] [address]. All rights reserved. This information is not intended as a substitute for professional medical care. Always follow yourhealthcare professional's instructions. Additional Information VACCINATE! IT SAVES LIVES! Members of the community who have not yet received the COVID-19 vaccine and would like to receive it can visit one of [facility] vaccine clinics. There are many vaccine clinic locations within the [facility]. For locations and available times, please visit [email or web address]. It is important to note that some COVID mobile vaccine clinics are held outdoors and may be canceled in rainy orstormy conditions. To learn more about pediatric vaccinations (ages 5-11), we invite you to visit the [facility] webpage. [email or web address] learn more about the COVID-19 vaccine, we invite you to visit the [facility] website for a list of frequently asked questions. [email or web address] [facility] Patient Portal Access Instructions: Stay connected with your healthcare team and access your personal medical information anytime with the [facility] Patient Portal. If you would like a full copy of your medical records please contact the [facility] Medical Records Department Saturday through Saturday between 8a.m. and 4:30p.m. Please follow the directions below to access the portal: 1.Access the email account you provided upon registration to the [facility].2.Look for an invitation email from [facility].3.Open the email and access the invitation link: Accept Invitation to [facility]4.Fill in the required randle to create your account. Sign into [email or web address] with your username and password that you [...] you will allow to register on the [facility] Patient Portal for access to your information. You can also access the [facility] Patient Portal on the [employer] larissa. Simply click on Health Records under Step On Up Graphics and then click on the Anthony logo. [...] Call your local pharmacy or go to [email or web address] to find one close to you.3.Make use of household items: Use cat litter or old coffee grounds to dispose medications if other options arenot available. Mix your drugs with these household products, seal them in an airtight container andthrow it into the garbage. Call [facility]: [phone] to be sure your drugs can be [...] aware that I should contact my doctor. 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 Signature: (more content not included)... [facility]12-16-2022 Note ORIGINAL EXAMINATION: ONE XRAY [...] 10/26/2022 7:06:29 PM Ordering Provider: BRIAN TRINIDAD [facility]12-16-2022 Note ORIGINAL EXAMINATION: ONE XRAY [...] Sign Date: 10/26/2022 7:06:29 PM Ordering Provider: [facility]12-16-2022 SARS-CoV-2 (COVID-19) RNA IVANA+probe Ql (Nph)Negative *NA* (10/26/22 5:52 PM)AO Auto Urine [id number] History of Present illness Narrative* Doron Self DO - 10/02/2022 10:10 AM EST This office note has been dictated. Doron Self DO documented [facility]22 Miscellaneous Notes* Telephone Encounter - [...] Thank you! Linda Olea documented in this encounterTwin City [facility]11-09-2022 Miscellaneous Notes* Telephone Encounter - Nevin Horne Pss - 09/19/2022 10:02 AM EST Patient called to reschedule damir lab testing from 07/13. Unable to schedule, stated 09/11. Please place new orders and advise patient for scheduling. documented in this encounterTwin City [facility]10-26-2022 History of Present illness Narrative* [...] Disease) Seasonal Allergies Pad (Peripheral Artery Disease) ([facility]) Anxiety and Depression Prediabetes Chest Pain Other Chest Pain Stenosis of Carotid Artery Mixed Hyperlipidemia Abnormal Stress Test Dyspnea On Exertion Coronary Artery Disease Involving [place] Coronary Artery of [place] Heart Without Angina Pectoris Lung Nodule Current [...] 2 tablets by mouth daily at bedtime. iqckkvdzmvg-hbjhkujfc-pbzmugji (TRELEGY ELLIPTA) 200-62.5-25 mcg inhalation powder Inhale [...] control Ulises Hermosillo MD documented in this encounterTwin City Hospital10-26-2022 Miscellaneous Notes* Telephone Encounter - [...] No difficulty with drinking. Protocols used: Mouth Yigo-AVKFY-HE documented in this encounterTwin City Hospital10-21-2022 Instructions* Patient Instructions* Oly Smith APRN.CNP - 08/31/2022 1:46 PM EDT Increase venlafaxine to 225 mg, take 150 mg cap with 75 mg cap to equal 225 mg. Take lorazepam as needed. Please use sparingly, no refills. 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 She on Plavix and Imdur. She stopped taking ASA because she takes Excedrin a lot and thought it was the same thing. 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 Last appointment in May. Symbicort was stopped [...] 12/14/2015 Bipolar affective disorder, currently active ([facility]) 01/18/2016 Dr. Angie Jones, [facility] Chronic bronchitis ([facility]) 07/26/2016 Closed skull fracture ([facility]) 1994 [facility] Coronary artery disease DDD (degenerative disc disease), cervical Endometriosis 2007 Essential hypertension 12/14/2015 GERD (gastroesophageal reflux disease) 03/13/2019 History of colon polyps History of gastric ulcer 12/14/2015 HLD (hyperlipidemia) Injury of left facial nerve 1994 PAD (peripheral artery disease) ([facility]) 09/28/2019 Recurrent major depression in partial remission ([facility]) 12/14/2015 S/P drug eluting coronary [...] TOTAL FACIAL NERVE DECOMPRESSION &/REPAIR Left 1989 [facility] ALLERGIES Patient has no known allergies. MEDICATIONS traZODone (DESYREL) 100 mg tablet^Take 2 tablets by mouth daily at bedtime.^Disp: 60 tablet^Rfl: 5 uczasymirgu-kyqgslkes-snukjddk (TRELEGY ELLIPTA) 200-62.5-25 mcg inhalation powder^Inhale 1 [...] suspiciousactivity was identified. 08/31/2022 by Oly Smith APRN.SERVICE DELIVERY DIRECTOR 2. Allergic conjunctivitis of both eyes - [...] MG TABLET 5. Coronary artery disease involving [place] coronary artery of [place] heart without angina pectoris- ICD9: 414.01, ICD10: [...] CT in July. Follow-up with lung cancer medical laboratory specialist as advised 10. Screening for osteoporosis - ICD9: V82.81, ICD10: Z13.820 - DXA-AXIAL SKELETON 11. Asymptomatic menopause - ICD9: V49.81, ICD10: Z78.0 - DXA-AXIAL SKELETON Prescription instructions reviewed with patient as applicable. Potential red flag symptoms discussed with the patient. Reviewed appropriate action plan to take if red flag symptoms occur. Patient agreeable to treatment plan. Oly Smith APRN.CNP documented in this encounterTwin City Hospital10-06-2022 Miscellaneous Notes* Telephone Encounter - [...] to attend he can contact them at [phone] Option 3 to arrange. Nena Dozier RN documented in this encounterTwin City Hospital09-22-2022 Miscellaneous Notes* Telephone Encounter - Nevin Smith - 08/02/2022 12:39 PM EDT Please call patient to schedule testing prior to appt on 08/14/2022 Thank you documented in this encounterTwin City Hospital09-20-2022 Instructions* Patient Instructions* Karly Garcia [...] please feel free to contact me at [phone]. Karly Garcia APRN.CNP documented in this encounterTwin City Hospital09-20-2022 History of Present illness Narrative* Karly aGrcia APRN.CNP - 07/31/2022 2:30 PM EDT Images [...] daily. Per her last OV with her refrigeration engineer, Symbicort was advised to be discontinued as Trelegy was added on. Activity: Does light house work but has to stop in between chores to catch her breath. Gets SOB with showering or with walking from her bedroom to her kitchen. The patient does not require assistancewith normal activities of daily living. Modified Medical Research [place] Dyspnea Scale (MMRC) I stop for breath [...] 12/14/2015 Bipolar affective disorder, currently active ([facility]) 01/18/2016 [facility] Chronic bronchitis ([facility]) 07/26/2016 Closed skull fracture ([facility]) 1994 [facility] Coronary artery disease DDD (degenerative disc disease), cervical Endometriosis 2007 Essential hypertension 12/14/2015 GERD (gastroesophageal reflux disease) 03/13/2019 History of colon polyps History of gastric ulcer 12/14/2015 HLD (hyperlipidemia) Injury of left facial nerve 1994 PAD (peripheral artery disease) ([facility]) 09/28/2019 Recurrent major depression in partial remission ([facility]) 12/14/2015 S/P drug eluting coronary [...] TOTAL FACIAL NERVE DECOMPRESSION &/REPAIR Left 1989 [facility] Family Hx: FAMILY HISTORY Problem [...] which included preparing to see the patient, xbwz-ar-chsh patient care, completing clinical documentation, obtaining and/or reviewing separately obtained history, performing a medically appropriate examination, counseling and educating the pat ient/family/caregiver, and communicating results to the patient/family/caregiver. Associated attestation - Nicole Kenny APRN.CNP - 07/31/2022 4:53 PM EDT TEACHING PROVIDER (Physician/PA/MANAGER INSTALLATION) NOTE OF PERSONAL INVOLVEMENT IN CARE: I have personally seen and examined the patient and performed the medical decision-making components. I have reviewed the Karly Loya 's documentation and verified the findings in the note as written. Any additions or changes are noted in bold/italics. Signature: Nicole Kenny APRN.CNP Date: 07/31/2022 Time: 4:53 PM documented in this encounterTwin City Hospital09-15-2022 NoteHNO ID: [id number] Author: YASSINE Hatch Service: Radiology Author Type: [...] BY: YASSINE Hatch July 26, 2022 4:24 PMCrystal Clinic Orthopedic [id number] Miscellaneous Notes* Telephone Encounter - Saranya Link [...] daily at bedtime. Authorizing Provider: DAT RODNEY afkhbrhazke-ddituguuf-vdpghqvh (TRELEGY ELLIPTA) 200-62.5-25 mcg inhalation powder 60 [...] pcp 05/11/22. Next appt is 08/13/22 with DIRECTOR GEOTHERMAL OPERATIONS. * Telephone Encounter - Arlen Avalos Pss - 07/20/2022 11:25 AM EDT Patient has been identified by Yesname and date of : Requested Prescriptions Pending Prescriptions Disp Refills traZODone (DESYREL) 100 mg tablet 60 tablet 0 Sig: Take 2 tablets by mouth daily at bedtime. loyiscymroy-xypddbuam-npfgmqxz (TRELEGY ELLIPTA) 200-62.5-25 mcg inhalation powder 60 Each 11 Sig: Inhale 1 Puff as instructed once daily. venlafaxine ER (EFFEXOR XR) 150 mg 24 hr capsule 90 capsule 0 Sig: Take 1 capsule by mouth once daily. RX INSTRUCTIONS: Patient aware RX will be sent to pharmacy. No need to notify patient. Arlen Avalos Pss documented in this encounterTwin City Hospital09-06-2022 Miscellaneous Notes* Telephone Encounter - Hyacinth Austin - 07/17/2022 2:02 PM EDT Left message to advise appointment with Dr Self has been moved up to August 4ht @ 10:15 in the [place] . * Telephone Encounter - Maritza De Los Santos - 07/13/2022 3:52 PM EDT Patient called back in regard to message left for her. Informed her that she needs to complete testing first before she has appt with Dr. Self. She verbalized understanding. I informed her of when her testing is on 07/26/2022 in [place] and rescheduled her appt with Dr. Self in [place] on 09/11/2022 since that was the soonest [...] her right leg. The soonest testing appt [place] has available is 07/25/22. Patient is tentatively scheduled on thatday. Appt needs to be rescheduled. Discussed with patient she could come for the visit on 07/17/22 howeverthe testing is necessary to see if there is anything new going on since her last scan. Left patient a voicemail with this information, advised she could call the office for other appt options in [place]. documented in this encounterTwin City Hospital08-29-2022 Procedure note* ASHLEY Cage - [...] walker used for stability. documented in this encounterTwin City Hospital08-29-2022 History of Present illness Narrative* ASHLEY Cage - 07/09/2022 3:29 PM EDT PULM FUNCTION SMARTBLOCK: Provider: Margaret Kasper MD Assisting Tech: ASHLEY Cage Oximetry - Ambulation: 1 documented in this encounterTwin City Hospital08-26-2022 Miscellaneous Notes* Telephone Encounter - Margaret Kasper MD - 07/06/2022 11:29 AM EDT Order for oximetry documented in this encounterTwin City Hospital08-04-2022 Miscellaneous Notes* Telephone Encounter - [...] notify patient. Cailin Austin documented in this encounterTwin City Hospital07-27-2022 History of Present illness Narrative* [...] asthma since teenage, COPD, recently discharged from [facility] in [place] where she was treated for COPD exacerbation [...] and relieved by inhalers Recent hospital admissions: [facility] in [place] Medications: Symbicort, albuterol Most recent Radiology Most [...] No significant exposure Silica: No significant exposure Hyde: No significant exposure Mold: No significant exposure Hot tub: No significant exposure Fumes: No significant exposure Metal dust: No significant exposure Beryllium: No significant exposure Dust: No significant exposure Medications: No relevant exposure for interstitial lung diseases PAST MEDICAL HISTORY Diagnosis Date Acute pancreatitis 2010 [facility] Alcohol use disorder 01/18/2016 [facility] Anxiety 12/14/2015 Bipolar affective disorder, currently active ([facility]) 01/18/2016 [facility] Chronic bronchitis ([facility]) 07/26/2016 Closed skull fracture ([facility]) 1994 [facility] Coronary artery disease DDD (degenerative disc disease), cervical Endometriosis 2007 Essential hypertension 12/14/2015 GERD (gastroesophageal reflux disease) 03/13/2019 History of colon polyps History of gastric ulcer 12/14/2015 HLD (hyperlipidemia) Injury of left facial nerve 1994 PAD (peripheral artery disease) ([facility]) 09/28/2019 Recurrent major depression in partial remission ([facility]) 12/14/2015 S/P drug eluting coronary [...] TOTAL FACIAL NERVE DECOMPRESSION &/REPAIR Left 1989 [facility] FAMILY HISTORY Problem Relation Age [...] Take 1 tablet by mouth once daily. hqtlghnfivy-lhhcmoaoj-mrmojzel (TRELEGY ELLIPTA) 200-62.5-25 mcg inhalation powder Inhale [...] 400 QTC Calculation (Bazett) 450 Calculated P [place] 82 Calculated R [place] 65 Calculated T [place] 69 Impression NORMAL SINUS RHYTHM NORMAL ECG Confirmed by DYLAN ROTH M.D. ([id number]) on 10/23/2021 11:14:32 AM Recent Results (from the past 11673 hour(s)) ECHO Collection Time: 05/21/22 3:26 PM [...] disease counseling. Margaret Kasper MD Staff, Respiratory [place] [facility] CC: MD Zoya Jameson Maria Sheyne, * documented in this encounterTwin City Hospital07-27-2022 History of Present illness Narrative* Paco Miguel RRT - 06/06/2022 9:47 AM EDT PULM FUNCTION SMARTBLOCK: Provider: Margaret Kasper MD Assisting Tech: Paco Miguel RRT Spirometry w/BD: 1 DLCO: 1 documented in this encounterTwin City Hospital07-25-2022 Miscellaneous Notes* Telephone Encounter - [...] RN - 06/04/2022 10:07 AM EDT [facility] several orders for the Aerochamber spacer, electronically signed by Product Responsibility Liaison. States she cannot accept this. Needs an actual prescription with name, addressand signature of provider. Please send actual prescription. Fax number [phone]. documented in this encounterTwin City Hospital07-22-2022 Miscellaneous Notes* Telephone Encounter - [...] be sent for inhaler spacer? Pharmacy is [facility]. See Message below in regards to portable oxygen tank. Please review and advise, Christina Franco RN * Telephone Encounter - Christina Franco RN - 05/31/2022 11:07 AM EDT Patient calls and is asking if provider can write orders for patient to have a smaller portable oxygen tank so it is easier for her to go places. She gets current supplies from [facility]. Please review and advise, Christina Franco RN documented in this encounterTwin City Hospital07-20-2022 Miscellaneous Notes* Addendum Note - Nicole Kenny APRN.LINDA - 05/30/2022 9:06 AM EDT Addended by: NICOLE KENNY on: 05/30/2022 09:06 AM Modules accepted: Orders documented in this encounterTwin City Hospital07-19-2022 Miscellaneous Notes* Telephone Encounter - Tracy Alan LPN - 05/29/2022 7:04 AM EDT Patient's request for medication is as follows: Pending Prescriptions Disp Refills AMLODIPINE 10 MG TABLET 90 tablet 3 Sig: TAKE 1 TABLET BY MOUTH EVERY DAY BECKY: Yes Last seen 12/04/2021 in [place]. Follow up scheduled for 11/19/2022. Prescription(s) as above. Please process accordingly. Tracy Alan LPN documented in this encounterTwin City Hospital07-15-2022 Miscellaneous Notes* Telephone Encounter - [...] to the pharmacy. Please call patient at: [phone]. Telma Austin documented in this encounterTwin City Hospital07-14-2022 Miscellaneous Notes* Telephone Encounter - [...] valve disease. Thank you! documented in this encounterTwin City Hospital07-12-2022 Miscellaneous Notes* Result QuickNote - Tracy Ramires APRN.CNP - 05/22/2022 7:41 AM EDT Please call patient and notify her echocardiogram reveals stable LV function and no significant valve disease. Thank you! documented in this encounterTwin City Hospital07-01-2022 Instructions* Patient Instructions* Ulises Hermosillo MD - 05/11/2022 2:14 PM EDT FASTING BLOOD WORK IN 3 MONTHS. documented in this encounterTwin City Hospital07-01-2022 History of Present illness Narrative* [...] Hypertension Recurrent Major Depression in Partial Remission ([facility]) Bipolar Affective Disorder, Currently Active ([facility]) History of Alcohol Abuse Chronic bronchitis ([facility]) Spinal Stenosis, Lumbar Region Without Neurogenic Claudication Radiculopathy, Lumbar Region Smoker Gerd (Gastroesophageal Reflux Disease) Seasonal Allergies Pad (Peripheral Artery Disease) ([facility]) Anxiety and Depression Prediabetes Chest Pain Other Chest Pain Stenosis of Carotid Artery Mixed Hyperlipidemia Abnormal Stress Test Dyspnea On Exertion Coronary Artery Disease Involving [place] Coronary Artery of [place] Heart Without Angina Pectoris Social History Tobacco [...] BASIC Ulises Hermosillo MD documented in this encounterTwin City Hospital06-27-2022 Miscellaneous Notes* Telephone Encounter - [...] notify patient. Luci Austin documented in this encounterTwin City Hospital06-25-2022 Hospital Discharge instructions Patient Education [...] Follow these instructions at home: Medicines Take tjlq-eks-jtlkfts and prescription medicines (inhaled or pills) only [...] 08/07/2006 Document Revised: 10/10/2018 Document Reviewed: 12/02/2017 [employer] Patient Education 2020 Plan A Drink. Follow Up Care 05/02/2022 09:30:28 With:[facility] Address: When: Unknown Comments:[facility] will provide your home oxygen and equipment. Call them when you arrive home and they will deliver your oxygen concentrator to you. Their number is [phone]. With:ULISES HERMOSILLO MD Address: [address] [place] [address]- When:05/11/2022 13:40:00 Comments:The appointment on 05/07 has been moved to 05/11 @1:40 P.M to be with Dr. Hermosillo [facility] 06-22-2022 Evaluation + Plan noteExtracted from: [...] confirmed cardiac medications in addition to Plavix. [facility] 06-22-2022 SARS-CoV-2 (COVID-19) RNA IVANA+probe Ql (Nph) Negative (05/02/22 4:25 AM)AO Auto Urine [id number] Instructions* Patient Instructions* Tracy Ramires APRN.SERVICE DELIVERY DIRECTOR - 04/30/2022 3:57 PM EDT Images from [...] the health of your heart. Developed by [employer]. Published by [employer]. Copyright 2014 everyArt and/or one of its subsidiaries. All rights reserved. documented in this encounterTwin City Hospital06-20-2022 History of Present illness Narrative* [...] 12/14/2015 Bipolar affective disorder, currently active ([facility]) 01/18/2016 [facility] Chronic bronchitis ([facility]) 07/26/2016 Closed skull fracture ([facility]) [address] [facility] Coronary artery disease DDD (degenerative disc disease), cervical Endometriosis 2007 Essential hypertension 12/14/2015 GERD (gastroesophageal reflux disease) 03/13/2019 History of colon polyps History of gastric ulcer 12/14/2015 HLD (hyperlipidemia) Injury of left facial nerve 1994 PAD (peripheral artery disease) ([facility]) 09/28/2019 Recurrent major depression in partial remission ([facility]) 12/14/2015 S/P drug eluting coronary [...] TOTAL FACIAL NERVE DECOMPRESSION &/REPAIR Left 1989 [facility] FAMILY HISTORY Problem Relation Age [...] injection (DEFINITY) INTRAVENOUS DIRECTED PRN Tracy Ramires, MANAGER INSTALLATION.SERVICE DELIVERY DIRECTOR sodium chloride 0.9 % (flush) 10 mL (BD POSIFLUSH) 10 mL INTRAVENOUS DIRECTED PRN Tracy E Sima, MANAGER INSTALLATION.SERVICE DELIVERY DIRECTOR perflutren lipid microspheres 1.3 mL in NaCl (PF) 0.9% 10 mL injection (DEFINITY) INTRAVENOUS DIRECTED PRN Tracy E Sima, MANAGER INSTALLATION.SERVICE DELIVERY DIRECTOR sodium chloride 0.9 % (flush) 10 mL (BD POSIFLUSH) 10 mL INTRAVENOUS DIRECTED PRN Tracy E Sima, MANAGER INSTALLATION.SERVICE DELIVERY DIRECTOR Review of Systems Constitutional: Negative for chills, [...] LAD portion of the stent 3.7mm, with mosque of blood flow, no residual stenosis. Assessment [...] 30, 2022, 3:36 PM documented in this encounterTwin City Hospital05-24-2022 Miscellaneous Notes* Telephone Encounter - Jasmine Ramos LPN - 04/03/2022 10:00 AM EDT Last see pcp DIRECTOR GEOTHERMAL OPERATIONS 02/14/21. Next appt with DIRECTOR GEOTHERMAL OPERATIONS 05/04/22. * Telephone Encounter - Cailin Austin [...] notify patient. Cailin Austin documented [facility]22 Instructions* Patient Instructions* Nicole Kenny [...] candy are also excellent oral substitutes. Phone [phone] ([phone]) as additional resource. CT Lung Screen Results [...] to endocrinology. Others Lung Cancer Screening hotline: [phone] Lung Cancer Screening [phone] Billing Questions: or [email or web address] Lung Cancer Screening Team: Linda Meyer CNP; Crystal Kenny CNP; Eri Cheung CNP; Agata Cruz CNP, JAYMIE SrivastavaC: [phone] Bouchra Cuenca PA-C documented in this encounterTwin City Hospital05-03-2022 History of Present illness Narrative* [...] 50% of waking hrs. Modified Medical Research [place] Dyspnea Scale (MMRC) On level ground I [...] MEDICAL HISTORY Diagnosis Date Acute pancreatitis 2010 Mayonr Matthews Alcohol use disorder 01/18/2016 [facility] Anxiety 12/14/2015 Bipolar affective disorder, currently active ([facility]) 01/18/2016 Dr. Angie Jones, [facility] Chronic bronchitis ([facility]) 07/26/2016 Closed skull fracture ([facility]) 1994 [facility] Coronary artery disease DDD (degenerative disc disease), cervical Endometriosis 2007 Essential hypertension 12/14/2015 GERD (gastroesophageal reflux disease) 03/13/2019 History of colon polyps History of gastric ulcer 12/14/2015 HLD (hyperlipidemia) Injury of left facial nerve 1994 PAD (peripheral artery disease) ([facility]) 09/28/2019 Recurrent major depression in partial remission ([facility]) 12/14/2015 S/P drug eluting coronary [...] TOTAL FACIAL NERVE DECOMPRESSION &/REPAIR Left 1989 [facility] FAMILY HISTORY Problem Relation Age [...] Date(s) Administered COVID-19 vaccine, age 12+ yr ([employer] - [facility]) 11/21/2021 Influenza Seasonal Inj Quad Age 6 Mo - 64 Yrs 01/06/2020 Pneumovax 04/21/2018 influenza, high-dose, quadrivalent vaccine (FLUZONE HIGH DOSE QUADRIVALENT) 08/23/2020 Colonoscopy: 04/03/2017 Mammogram: DATA REVIEW I have directly visualized the testing documented: Prior Imaging: CT: Yes 2020 Abnormal Done at [facility] 01/2021 CXR: Yes 2020 Abnormal Nonspecific [...] risk for lung cancer: 23.1 % Source: [employer] https://[employer]/[place]/result/[email or web address]_[email or web address] [email or web address].[email or web address]/oa8j0 I have determined that the patient is [...] candy are also excellent oral substitutes. Phone [phone] ([phone]) as additional resource. The medical conditions adversely [...] which included preparing to see the patient, [id number] patient care, completing clinical documentation, obtaining and/or reviewing separately obtained history, performing a medically appropriate examination, counseling and educating the pat ient/family/caregiver, ordering medications, tests, or procedures and communicating results to the patient/family/caregiver. Nicole Kenny APRN.LINDA NPI #: March 13, 2022 2:10 PM documented in this encounterTwin City Hospital04-21-2022 Miscellaneous Notes* Telephone Encounter - [...] notify patient. Isadora Anglin documented in this encounterTwin City Hospital11-30-2021 NoteHNO ID: [id number] Author: RT Hiral(R) Service: Radiology Author Type: [...] Christina Bravo, RT(R) October 10, 2021 11:15 AMCrystal Clinic Orthopedic [id number] NoteHNO ID: [id number] Author: Tracy Ramires APRN.SERVICE DELIVERY DIRECTOR Service: ? Author Type: Nurse Practitioner Type: [...] seen by myself on 06/12/2021 at our [place] office. Stress [...] - Bipolar affective disorder, currently active ([facility]) 01/18/2016 [facility] - Chronic bronchitis ([facility]) 07/26/2016 - Closed skull fracture ([facility]) 1994 [facility] - Coronary artery disease - DDD (degenerative disc disease), cervical - Endometriosis 2007 - Essential hypertension 12/14/2015 - GERD (gastroesophageal reflux disease) 03/13/2019 - History of colon polyps - History of gastric ulcer 12/14/2015 - HLD (hyperlipidemia) - Injury of left facial nerve 1994 - PAD (peripheral artery disease) ([facility]) 09/28/2019 - Recurrent major depression in partial remission ([facility]) 12/14/2015 - S/P drug eluting coronary stent placement 08/25/2021 LAD and Dg2 - Spinal stenosis PAST SURGICAL HISTORY Procedure Laterality Date - APPENDECTOMY 1979 - COLONOSCOP W/ OR W/O [facility] [place] [facility] 2010 Colonoscopy - COLONOSCOPY 04/03/2017 diverticulosis- repeat 10 years - DECOMPRESS FACIAL NERVE,TOTAL Left 1989 [facility] - EGD 04/03/2017 Gastritis, duodenitis, [...] tablet 0 - camron (more content not included)...[facility]10-04-2021 Note HNO ID: [id number] Author: MAISHA Alicea Service: Radiology Author Type: Clinical Scene Painter Type: Progress Notes Filed: 08/14/2021 4:04 PM [...] POST EXAM PIV STATUS: Discontinued PROCEDURE TYPE: SD Stress: 12.6mCi [id number]-[id number] was administered IV for Rest Imaging at 13:45 by MAISHA Alicea. 30.5 mCi [id number]-[id number] was administered IV for Stress Imaging at [...] August 14, 2021 TIME: 4:03 PM PAGER/CONTACT #:[facility] [phone] History of Present illness Narrative* Carol Godinez [...] 27, 2021 10:19 AM documented in this encounterTwin City Hospital03-19-2021 History of Present illness Narrative* [...] 27, 2021 10:18 AM documented in this encounterTwin City Hospital08-27-2020 History of Past illness Narrative* [...] of this encounter (statuses as of 03/01/2022) [facility] Narrative* [...] of this encounter (statuses as of 03/13/2022) [facility] Narrative* [...] of this encounter (statuses as of 03/23/2022) [facility] Narrative* [...] of this encounter (statuses as of 04/03/2022) [facility] Narrative* Problem Noted Date Resolved Date Asthma 07/07/2020 07/07/2020 Hypomagnesemia 10/22/2019 10/23/2019 Last Assessment & Plan: [place] [place] [place] Preop cardiovascular exam 09/28/20192018 Precordial pain, [...] of this encounter (statuses as of 05/03/2022) [facility] of [facility] Narrative* [...] of this encounter (statuses as of 05/07/2022) [facility] Narrative* [...] of this encounter (statuses as of 05/11/2022) [facility] Narrative* [...] of this encounter (statuses as of 05/23/2022) [facility] Narrative* [...] of this encounter (statuses as of 05/24/2022) [facility] Narrative* [...] of this encounter (statuses as of 05/25/2022) [facility] Narrative* [...] of this encounter (statuses as of 05/29/2022) [facility] Narrative* [...] of this encounter (statuses as of 05/30/2022) [facility] Narrative* [...] of this encounter (statuses as of 05/30/2022) [facility] Narrative* [...] of this encounter (statuses as of 06/01/2022) [facility] Narrative* [...] of this encounter (statuses as of 06/04/2022) [facility] Narrative* [...] of this encounter (statuses as of 06/06/2022) [facility] Narrative* [...] of this encounter (statuses as of 06/06/2022) [facility] Narrative* [...] of this encounter (statuses as of 06/15/2022) [facility] Narrative* [...] of this encounter (statuses as of 07/06/2022) [facility] Narrative* [...] of this encounter (statuses as of 07/09/2022) [facility] Narrative* [...] of this encounter (statuses as of 07/18/2022) [facility] Narrative* [...] of this encounter (statuses as of 07/24/2022) [facility] Narrative* [...] of this encounter (statuses as of 07/31/2022) [facility] Narrative* [...] of this encounter (statuses as of 08/10/2022) [facility] Narrative* [...] of this encounter (statuses as of 08/16/2022) [facility] Narrative* [...] of this encounter (statuses as of 08/31/2022) [facility] Narrative* [...] of this encounter (statuses as of 09/05/2022) [facility] Narrative* [...] of this encounter (statuses as of 09/06/2022) [facility] Narrative* [...] of this encounter (statuses as of 09/24/2022) [facility] Narrative* [...] of this encounter (statuses as of 09/30/2022) [facility] Narrative* [...] of this encounter (statuses as of 10/02/2022) [facility] Narrative* [...] of this encounter (statuses as of 11/26/2022) [facility] Narrative* [...] of this encounter (statuses as of 12/15/2022) [facility] Narrative* [...] of this encounter (statuses as of 01/01/2023) [facility] Narrative* [...] of this encounter (statuses as of 01/01/2023) [facility] Narrative* [...] of this encounter (statuses as of 02/27/2023) [facility] Narrative* Problem Noted Date Resolved Date Asthma 07/07/2020 07/07/2020 Hypomagnesemia 10/22/2019 10/23/2019 Last Assessment & Plan: Replete [facility] Preop cardiovascular exam 09/28/20192018 Precordial pain, [...] of this encounter (statuses as of 04/16/2023) [facility] Narrative* [...] of this encounter (statuses as of 05/09/2023) [facility] Narrative* [...] of this encounter (statuses as of 05/09/2023) [facility] Narrative* [...] of this encounter (statuses as of 05/14/2023) [facility] Narrative* [...] of this encounter (statuses as of 05/28/2023) [facility]arr[facility]* [...] of this encounter (statuses as of 06/07/2023) [facility] Narrative* [...] of this encounter (statuses as of 06/11/2023) [facility] Narrative* [...] of this encounter (statuses as of 06/13/2023) [facility] Narrative* [...] of this encounter (statuses as of 06/14/2023) [facility]arrative* [...] of this encounter (statuses as of 09/26/2023) [facility]arr[facility]* [...] of this encounter (statuses as of 10/18/2023) [facility] Narrative* [...] of this encounter (statuses as of 12/24/2023) [facility] Narrative* [...] of this encounter (statuses as of 01/25/2024) [facility] No data available for this section [facility] Evaluation + Plan note Future Appointments Appointment Date:01/21/2025 02:00:00 PM Scheduled Provider:EMMA QUEEN DO Location:[facility] Appointment Type:PC OV [facility] Evaluation + Plan note Future Appointments Appointment Date:12/14/2024 08:00:00 AM Scheduled Provider: Location:[facility] Appointment Type:CV Procedure - Heart Lab/Hybrid OR Appointment Date:12/18/2024 02:00:00 PM Scheduled Provider: Location:[facility] Appointment Type:Echo - Echocardiogram Adult Appointment Date:01/18/2025 10:00:00 AM Scheduled Provider:CHRISTIN GONZALEZ Location:[facility] Appointment Type:CV OV Appointment Date:01/21/2025 02:00:00 PM Scheduled Provider:EMMA QUEEN DO Location:[facility] Appointment Type:PC OV [facility] Evaluation + Plan note Future Appointments Appointment Date:12/18/2024 02:00:00 PM Scheduled Provider: Location:[facility] Appointment Type:Echo - Echocardiogram Adult Appointment Date:01/18/2025 10:00:00 AM Scheduled Provider:CHRISTIN GONZALEZ Location:[facility] Appointment Type:CV OV Appointment Date:01/21/2025 02:00:00 PM Scheduled Provider:EMMA QUEEN DO Location:[facility] Appointment Type:PC OV Diagnostic Tests Pending * Complete Blood Count 12/14/24 [facility] evaluation + Plan note Future Appointments Appointment Date:01/18/2025 10:00:00 AM Scheduled Provider:CHRISTIN GONZALEZ Location:[facility] Appointment Type:CV OV Appointment Date:01/21/2025 02:00:00 PM Scheduled Provider:EMMA QUEEN DO Location:[facility] Appointment Type:PC OV [facility] Evaluation + Plan note Future Appointments Appointment Date:07/30/2025 10:00:00 AM Scheduled Provider:EMMA QUEEN DO Location:[facility] Appointment Type:PC OV Diagnostic Tests Pending * Blood Culture (bacterial) 06/12/25 * Blood Culture (bacterial) 06/12/25 Future Scheduled Tests Laboratory* Basic Metabolic Panel 01/11/25 * N-Terminal proBNP 01/11/25 Radiology* MRI Cardiac Morphology & Func W+W/O Cont 02/23/25 * CT Low Dose Lung Cancer Screening (LDCT) 03/10/25 [facility] evaluation note* Diagnosis Recurrent major depression in partial remission (HCC) Major depressive disorder, recurrent episode, in partial or unspecified remission [facility]* Diagnosis Dyspnea on exertion- Primary Other dyspnea and respiratory abnormality Smoker Tobacco use disorder Encounter for screening for malignant neoplasm of lung documented [facility] this encounter [facility]* Diagnosis Wheezing documented [facility] this [facility]* Diagnosis DIAZ (dyspnea on exertion)- Primary Other dyspnea and respiratory abnormality Essential hypertension Unspecified essential hypertension Coronary artery disease involving [place] coronary artery of [place] heart without angina pectoris Mixed hyperlipidemia Smoker Tobacco use disorder Stenosis of carotid artery, unspecified laterality documented in this encounter [facility]* Diagnosis Recurrent major depression in partial remission (HCC) Major depressive disorder, recurrent episode, in partial or unspecified remission documented [facility] this [facility]* Diagnosis Chronic bronchitis, unspecified chronic bronchitis type (HCC)- Primary Recurrent major depression in partial remission (HCC) Major depressive disorder, recurrent episode, in partial or unspecified remission Gastroesophageal reflux disease, unspecified whether esophagitis present Need for vaccination Need for prophylactic vaccination and inoculation against unspecified single disease Bipolar affective disorder, current episode mixed, current episode severity unspecified (HCC) PAD (peripheral artery disease) ([facility]) Peripheral vascular disease, unspecified documented [facility] this [facility]* Diagnosis DIAZ (dyspnea on exertion) Other dyspnea and respiratory abnormality documented [facility]* Diagnosis Tobacco use disorder- Primary documented [facility] this [facility]* Diagnosis Smoker- Primary Tobacco use disorder Encounter for screening for malignant neoplasm of lung documented [facility] this encounter [facility]* Diagnosis Chronic bronchitis, unspecified chronic bronchitis type (HCC)- Primary documented [facility] this [facility]* Diagnosis Dyspnea on exertion Other dyspnea and respiratory abnormality [facility]* Diagnosis Asthma-COPD overlap syndrome (HCC)- Primary Wheezing Smoking Tobacco use disorder documented [facility] this [facility]* Diagnosis Recurrent major depression in partial remission (HCC) Major depressive disorder, recurrent episode, in partial or unspecified remission documented [facility] this encounter [facility]* Diagnosis SOB (shortness of breath)- Primary Shortness of breath documented [facility]* Diagnosis SOB (shortness of breath) Shortness of breath documented [facility] this [facility]* Diagnosis Recurrent major depression in partial remission (HCC) Major depressive disorder, recurrent episode, in partial or unspecified remission documented in this encounter [facility] note* Diagnosis Lung nodules- Primary Other nonspecific abnormal finding of lung field Current smoker Tobacco use disorder documented in this encounter [facility] note* Diagnosis Situational anxiety- Primary Other anxiety states Allergic conjunctivitis of both eyes Other chronic allergic conjunctivitis Recurrent major depression in partial remission (HCC) Major depressive disorder, recurrent episode, in partial or unspecified remission Essential hypertension Unspecified essential hypertension Coronary artery disease involving [place] coronary artery of [place] heart without angina pectoris Chronic bronchitis, unspecified chronic bronchitis type ([facility]) Encounter for immunization Need for other specified prophylactic vaccination against single bacterial disease Mixed hyperlipidemia Lung nodule Solitary pulmonary nodule Screening for osteoporosis Special screening for osteoporosis Asymptomatic menopause [facility]* Diagnosis Thrush (oral)- Primary Prediabetes Other abnormal glucose Essential hypertension Unspecified essential hypertension documented in this encounter [facility] note* Diagnosis Peripheral arterial disease (HCC)- Primary Peripheral vascular disease, unspecified documented in this encounter [facility] note* Diagnosis PAD (peripheral artery disease) ([facility]) Peripheral vascular disease, unspecified documented in this encounter [facility] note* Diagnosis Hemoptysis- Primary Hemoptysis, unspecified Stage 3 severe COPD by GOLD classification ([facility]) Cigarette smoker Tobacco use disorder [facility]* Diagnosis Alcohol withdrawal syndrome without complication (HCC)- Primary documented in this encounter [facility] note* Diagnosis Onset Date Resolution Status Alcohol intoxication acute Chest pain acute Desire for detoxification ac [place] COPD exacerbation [facility] Work Phone: Evaluation note* Diagnosis Onset Date Resolution Status Alcohol intoxication acute Chest pain acute Desire for detoxification ac [place] Peripheral arterial disease acute Pneumococcal pneumonia acute Rash acute COPD exacerbation [facility] Work Phone: Evaluation note* Diagnosis Dehydration- Primary documented in this encounter [facility] Work Phone: evaluation note* Diagnosis Chronic midline low back pain with sciatica, sciatica laterality unspecified- Primary Lesion of left ear Essential hypertension Unspecified essential hypertension Mixed hyperlipidemia Chronic bronchitis, unspecified chronic bronchitis type (HCC) Recurrent major depression in partial remission (HCC) Major depressive disorder, recurrent episode, in partial or unspecified remission Coronary artery disease involving [place] coronary artery of [place] heart without angina pectoris documented [facility] this [facility]* Diagnosis Stage 3 severe COPD by GOLD classification ([facility])- Primary Cigarette smoker Tobacco use disorder Lung nodules Other nonspecific abnormal finding of lung field documented in this encounter [facility] note* Diagnosis Radiculopathy, lumbar region- Primary Thoracic or lumbosacral neuritis or radiculitis, unspecified Chronic midline low back pain with sciatica, sciatica laterality unspecified documented in this encounter [facility] note* Diagnosis Encounter for screening for lung cancer- Primary Tobacco use current documented in this encounter [facility] note* Diagnosis Essential hypertension Unspecified essential hypertension Recurrent major depression in partial remission (HCC) Major depressive disorder, recurrent episode, in partial or unspecified remission documented in this encounter [facility] note* Diagnosis Coronary artery disease involving [place] coronary artery of [place] heart without angina pectoris- Primary Wheezing Essential hypertension Unspecified essential hypertension Gastroesophageal reflux disease, unspecified whether esophagitis present Recurrent major depression in partial remission (HCC) Major depressive disorder, recurrent episode, in partial or unspecified remission documented in this encounter [facility] note* Diagnosis Wheezing [facility] Diagnosis Wheezing Essential hypertension Unspecified essential hypertension Gastroesophageal reflux disease, unspecified whether esophagitis present Recurrent major depression in partial remission (HCC) Major depressive disorder, recurrent episode, in partial or unspecified remission documented in this encounter [facility] note* Diagnosis Wheezing [facility]* Diagnosis Pre-operative examination- Primary Preoperative examination, unspecified Primary osteoarthritis of right hip Primary localized osteoarthrosis, pelvic region and thigh Essential hypertension Unspecified essential hypertension Chronic bronchitis, unspecified chronic bronchitis type ([facility]) Smoker Tobacco use disorder Recurrent major depression in partial remission (HCC) Major depressive disorder, recurrent episode, in partial or unspecified remission Bipolar affective disorder, current episode mixed, current episode severity unspecified ([facility] [facility]) Gastroesophageal reflux disease, esophagitis presence not specified PAD (peripheral artery disease) [facility] Primary Peripheral vascular disease, unspecified PAD (peripheral artery disease) ([facility]) Peripheral vascular disease, unspecified Essential hypertension Unspecified essential hypertension Smoker Tobacco use disorder Chronic bronchitis, unspecified chronic bronchitis type ([facility]) Smoker Tobacco use disorder Hypomagnesemia Disorders of magnesium metabolism Preoperative examination- Primary Preoperative examination, unspecified PAD (peripheral artery disease) ([facility]) Peripheral vascular disease, unspecified Essential [...] Unspecified essential hypertension Coronary artery disease involving confederated coos coronary artery of confederated coos heart without angina pectoris Chronic bronchitis, unspecified chronic bronchitis type (HCC) Encounter for immunization Need for other specified prophylactic vaccination against single bacterial disease Mixed hyperlipidemia Lung nodule Solitary pulmonary nodule Screening for osteoporosis Special screening for osteoporosis Asymptomatic menopause Chronic midline low back pain with sciatica, sciatica laterality unspecified [facility] Pre-operative examination- Primary [...] disease, unspecified PAD (peripheral artery disease) ([facility]) Peripheral vascular disease, unspecified Essential [...] Unspecified essential hypertension Coronary artery disease involving conf[place] coos coronary artery of conf[place] coos heart without angina pectoris Chronic bronchitis, unspecified chronic bronchitis type ([facility]) Encounter for immunization Need for other specified prophylactic vaccination against single bacterial disease Mixed hyperlipidemia Lung nodule Solitary pulmonary nodule Screening for osteoporosis Special screening for osteoporosis Asymptomatic menopause Hemoptysis Hemoptysis, unspecified [facility] Pre-operative examination- Primary Preoperative examination, unspecified Primary osteoarthritis of right hip Primary localized osteoarthrosis, pelvic region and thigh Essential hypertension Unspecified essential hypertension Chronic bronchitis, unspecified chronic bronchitis type ([facility]) Smoker Tobacco use disorder Recurrent major depression in partial remission (HCC) Major depressive disorder, recurrent episode, in partial or unspecified remission Bipolar affective disorder, current episode mixed, current episode severity unspecified ([facility]) Gastroesophageal reflux disease, esophagitis presence not specified PAD (peripheral artery disease) ([facility] Primary Peripheral vascular disease, unspecified PAD (peripheral artery disease) ([facility]) Peripheral vascular disease, unspecified Essential hypertension Unspecified essential hypertension Smoker Tobacco use disorder Chronic bronchitis, unspecified chronic bronchitis type (HCC) Essential hypertension Unspecified essential hypertension Smoker Tobacco use disorder Hypomagnesemia Disorders of magnesium metabolism Preoperative examination- Primary Preoperative examination, unspecified PAD (peripheral artery disease) ([facility]) Peripheral vascular disease, unspecified Essential hypertension Unspecified essential hypertension Precordial pain, short lived, 3-5 minutes, nonexertional, no evidence of stress-induced ischemia on dobutamine echo in January 2019. Precordial pain Chronic bronchitis, unspecified chronic bronchitis type ([facility]) Smoker Tobacco use disorder Gastroesophageal reflux disease, [...] Unspecified essential hypertension Coronary artery disease involving confed[place] coos coronary artery of confed[place] coos heart without angina pectoris Chronic bronchitis, unspecified chronic bronchitis type (HCC) Encounter for immunization Need for other specified prophylactic vaccination against single bacterial disease Mixed hyperlipidemia Lung nodule Solitary pulmonary nodule Screening for osteoporosis Special screening for osteoporosis Asymptomatic menopause [facility] January 02, 2023 9:37pm Note Date/Time January 02, 2023 9:19pm [facility] Medical Records Department [address] [place] [address] History & Physical Exam 01/02/232135 MR#: [id number] Acct: [id number] Name: STEVEN KOENIG Rep #:[id number] : [...] abuse, Tobacco use who presents to the [facility] on 01/02/23 with history of severalcomplaints [...] rhythm with no acute evidence of ischemia. [facility] Alcohol abuse Anxiety and [...] Clarity Clear, Urine pH 6.0, Ur Specific Newton 1.005, Urine Protein Negative, Urine Glucose (UA) [...] % (Auto) 50.1, Lymph % (Auto) 37.2, Lander % (Auto) 9.6, Eos % (Auto) 1.4, [...] 21:10 EST Reading Location ID and State: [address] [place] [address] , Service support , Assessment & Plan Assessment/Plan (1) Chest pain: (2) COPD exacerbation: (3) Desire for detoxification: PLAN: Plan The patient is a 67 y/o F w/ PMHx: COPD, HTN, HLD, Depression and Anxiety, EtOH abuse, Tobacco use who presents to the [facility] ED on 01/02/23 with history of severalcomplaints [...] 76 minutes. Charges/Coding Visit Charges Inpatient E&M: 97513 Init Hosp L3 01/02/232136 <Electronically signed by Linda Luque MD> Cosigner Signature (if applicable): CC: Dr. Linda Luque MD; Dr. Ulises Hermosillo MD~ Signed [facility] Work Phone: Hospital Discharge instructions No data available for this section [facility]* Yolanda Gonzalez RN: PERFORM Event Display: Christin Outpatient Patient Summary Authored Date: [id number] Discharge Instructions Thank you for allowing [facility] to assist you with your healthcare needs. [...] MD When Within 2-4 days Where: [address] [place] [address]- Allergies NKA Medications Please ask your primary [...] may report side effects to FDA at 1-756-LAV-7246. What other drugs will affect budesonide and formoterol? Sometimes it is not safe to use certain medications at the same time. Some drugs can affect your blood levels of other drugs you take, which may increase side effects or make the medications less effective. Many drugs can affect budesonide and formoterol. This includes prescription and zbsb-evl-bwtplqq medicines, vitamins, and herbal products. Not all [...] to ensure that the information provided by [employer]. ('[employer]') is accurate, up-to-date, and complete, but no guarantee is made to that effect. Drug information contained herein may be time sensitive. [facility] information has been compiled for use by healthcare practitioners and consumers in the [place] and therefore Special[employer]Care does not warrant that uses outside of the [place] are appropriate, unless specifically indicated otherwise. [employer] drug information does not endorse drugs, diagnose patients or recommend therapy. [employer] drug information isan informational resource designed to [...] effective or appropriate for any given patient. Special[employer] does not assume any responsibility for any aspect of healthcare administered with the aid of information [facility] provides. The information contained herein is not intended to cover all possible uses, directions, precautions, warnings, drug interactions, allergic reactions, or adverse effects. If you have questions about the drugs you are taking, check with your doctor, nurse or pharmacist. Copyright 4228-2969 [employer]. Version: 9.02. Revision Date: 07/08/2019. prednisone (PRED [...] may report side effects to FDA at 4-122-HNH-4871. What other drugs will affect prednisone? Sometimes [...] may affect prednisone. This includes prescription and znmu-dar-sikxhah medicines, vitamins, and herbal products. Not all [...] to ensure that the information provided by [employer]. ('[employer]') is accurate, up-to-date, and complete, but no guarantee is made to that effect. Drug information contained herein may be time sensitive. [facility] information has been compiled for use by healthcare practitioners and consumers in the [place] and therefore SpecialtyCare does not warrant that uses outside of the [place] are appropriate, unless specifically indicated otherwise. [employer]'s drug information does not endorse drugs, diagnose patients or recommend therapy. [employer] drug information isan informational resource designed to [...] effective or appropriate for any given patient. [facility] does not assume any responsibility for any aspect of healthcare administered with the aid of information [employer] provides. The information contained herein is not intended to cover all possible uses, directions, precautions, warnings, drug interactions, allergic reactions, or adverse effects. If you have questions about the drugs you are taking, check with your doctor, nurse or pharmacist. Copyright 1474-6321 [employer]. Version: 10.. Revision Date: 02/05/2019. doxycycline (oral/injection) [...] or life-threatening conditions such as anthrax or [place] spotted fever. The benefit of treating a [...] may report side effects to FDA at 7-609-RUL-3943. What other drugs will affect doxycycline? Sometimes it is not safe to use certain medications at the same time. Some drugs can affect your blood levels of other drugs you take, which may increase side effects or make the medications less effective. Other drugs may affect doxycycline, including prescription and rnfe-bcg-sczzpwd medicines, vitamins, and herbal products. Tell your [...] to ensure that the information provided by [employer]. ('[employer]') is accurate, up-to-date, and complete, but no guarantee is made to that effect. Drug information contained herein may be time sensitive. [employer] information has been compiled for use by healthcare practitioners and consumers in the [place] and therefore Special[employer] does not warrant that uses outside of the [place] are appropriate, unless specifically indicated otherwise. [employer] drug information does not endorse drugs, diagnose patients or recommend therapy. [employer] drug information isan informational resource designed to [...] effective or appropriate for any given patient. [employer] does not assume any responsibility for any aspect of healthcare administered with the aid of information [employer] provides. The information contained herein is not intended to cover all possible uses, directions, precautions, warnings, drug interactions, allergic reactions, or adverse effects. If you have questions about the drugs you are taking, check with your doctor, nurse or pharmacist. Copyright 3240-8954 [employer]. Version: 21.04. Revision Date: 09/14/2020. Education Materials [...] your ankles gets worse Dizziness or weakness 2694-4395 [employer]. [address] [place] [address]. All rights reserved. This information is not intended as a substitute for professional medical care. Always follow yourhealthcare professional's instructions. Additional Information VACCINATE! IT SAVES LIVES! Members of the community who have not yet received the COVID-19 vaccine and would like to receive it can visit one of [facility] vaccine clinics. There are many vaccine clinic locations within the [facility]. For locations and available times, please visit [email or web address]. It is important to note that some COVID mobile vaccine clinics are held outdoors and may be canceled in rainy orstormy conditions. To learn more about pediatric vaccinations (ages 5-11), we invite you to visit the [facility] webpage. [email or web address] learn more about the COVID-19 vaccine, we invite you to visit the [facility] website for a list of frequently asked questions. [email or web address] [facility] [employer] Patient Portal Access Instructions: Stay connected with your healthcare team and access your personal medical information anytime with the [facility] Patient Portal. If you would like a full copy of your medical records please contact the [facility] Medical Records Department Saturday through Saturday between 8a.m. and 4:30p.m. Please follow the directions below to access the portal: 1.Access the email account you provided upon registration to the [facility].2.Look for an invitation email from [facility].3.Open the email and access the invitation link: Accept Invitation to [facility]4.Fill in the required randle to create your account. Sign into [email or web address] with your username and password that you [...] you will allow to register on the [facility] Patient Portal for access to your information. You can also access the [facility] Patient Portal on the Familink. Simply click on Health Records under [employer] and then click on the Viewpost logo. HOW TO SAFELY DISPOSE OF PRESCRIPTION [...] Call your local pharmacy or go to [email or web address].jules/[email or web address] to find one close to you.3.Make use of household items: Use cat litter or old coffee grounds to dispose medications if other options arenot available. Mix your drugs with these household products, seal them in an airtight container andthrow it into the garbage. Call [facility]: [phone] to be sure your drugs can be [...] aware that I should contact my doctor. 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 [employer] Signature: Date/Time: Relationship to Patient: Witness Name/Signature: Date/Time: * ZINA GLOVER DO: SIGN, VERIFY Event Display: EKG [ED AOH] - CV Authored Date: [id number] [facility] Progress note No data available for this section [facility] Reason for referral (narrative)* Outpatient Procedure (Routine) - Authorized Specialty Diagnoses / Procedures Referred By Contac t Referred To Contact [facility] Diagnoses DIAZ (dyspnea on exertion) Procedures ECHO ECHO TTHRC R-T 2D W/WOM-MODE COMPL SPEC&COLR D Tracy Ramires APRN.SERVICE DELIVERY DIRECTOR [address] [facility] [address] [place] [address] [facility] Vascular [address] [address] Referral ID Status Reason Start Date Expiration Date Visits Requested Visits Authorized [id number] Authorized Auto-Generat ed Referral 04/30/2022 04/30/[address] [facility] for referral (narrative)* Outpatient Procedure (Routine) - Authorized Specialty Diagnoses / Procedures Referred By Contac t Referred To Contact [facility] Diagnoses SOB (shortness of breath) Procedures OXIMETRY WITH AMBULATION NONINVASIVE EAR/PULSE OXIMETRY MULTIPLE Margaret Atwood MD [address] [place] [address] [facility] [place] [address] [place] [address] Referral ID Status Reason Start Date Expiration Date Visits Requested Visits Authorized [id number] Authorized Auto-Generat ed Referral 07/06/2022 08/05/[address] [facility] for referral (narrative)* Outpatient Procedure (Routine) - Authorized Specialty Diagnoses / Procedures Referred By Contac t Referred To Contact [facility] Diagnoses Peripheral arterial disease (HCC) Procedures PVR LEG SHERIN VAS LAB NON-INVASIVE PHYSIOLOGIC STUDY EXTREMITY 3 Doron Mahoney DO [address] [place] [address] [facility] V[facility] [place] [address] [place] [address] Referral ID Status Reason Start Date Expiration Date Visits Requested Visits Authorized [id number] Authorized Auto-Generat ed Referral 2 11/10/[address] [facility] for referral (narrative)* Outpatient Procedure (Routine) - Pending Review Specialty Diagnoses / Procedures Referred By Contac t Referred To Contact [facility]EE[facility] Diagnoses PAD (peripheral artery disease) (HCC) Procedures PVR LEG SHERIN VAS LAB NON-INVASIVE PHYSIOLOGIC STUDY EXTREMITY 3 Doron Mahoney, DO [address] [place] [address] [facility] [address] [place] [address] Referral ID Status Reason Start Date Expiration Date Visits Requested Visits Authorized [id number] Pending Review Auto-Generat ed Referral 2 10/02/[address] [facility] for referral (narrative)* Diagnostic Procedure Only (Routine) - Closed Specialty Diagnoses / Procedures Referred By Contac t Referred To Contact XR IMAGING Diagnoses Chronic midline low back pain with sciatica, sciatica laterality unspecified Procedures XR LUMBAR GENERAL 3V AP/LAT/L5-S1 RADEX SPINE LUMBOSACRAL 2/3 VIEWS Sarah, Oly, MANAGER INSTALLATION.SERVICE DELIVERY DIRECTOR [address] [place] [address] Xr Imaging Referral ID Status Reason Start Date Expiration Date V isits Requested Visits Authorized [id number] Closed Auto-Generate d Referral 05/08/2023 06/06/2024 1 1 * Transition of Care (Routine) - Ref Not Required Specialty Diagnoses / Procedures Referred By Contac t Referred To Contact Dermatology Diagnoses Lesion of left ear Procedures CONSULT TO DERMATOLOGY Oly Smith APRN.SERVICE DELIVERY DIRECTOR [address] [place] [address] Referral ID Status Reason Start Date Expiration Date Visits Requested Visits Authorized [id number] Ref Not Required PCP Requested Referral 05/08/2023 05/07/[address] [facility] for referral (narrative)* Diagnostic Procedure Only (Routine) - Closed Specialty Diagnoses / Procedures Referred By Contac t Referred To Contact XR IMAGING Diagnoses Chronic midline low back pain with sciatica, sciatica laterality unspecified Procedures XR LUMBAR GENERAL 3V AP/LAT/L5-S1 RADEX SPINE LUMBOSACRAL 2/3 VIEWS Oly Durbin MANAGER INSTALLATION.SERVICE DELIVERY DIRECTOR [address] [place] [address] [place] [address] Referral ID Status Reason Start Date Expiration Date V isits Requested Visits Authorized [id number] Closed Auto-Generate d Referral 05/08/2023 06/06/[address] [facility] for visit Narrative* Outpatient Procedure (Routine) - Closed Specialty Diagnoses / Procedures Referred By Contac t Referred To Contact [facility] Diagnoses DIAZ (dyspnea on exertion) Procedures ECHO ECHO TTHRC R-T 2D W/WOM-MODE COMPL SPEC&COLR D Tracy Ramires MANAGER INSTALLATION.SERVICE DELIVERY DIRECTOR [address] [facility] [address] [place] [address] [facility] [place] [address] [place] [address] Referral ID Status Reason Start Date Expiration Date V isits Requested Visits Authorized [id number] Closed Auto-Generate d Referral 04/30/2022 04/30/[address] [facility] for visit Narrative* Outpatient Procedure (Routine) - Closed Specialty Diagnoses / Procedures Referred By Contac t Referred To Contact [facility] Diagnoses SOB (shortness of breath) Procedures OXIMETRY WITH AMBULATION NONINVASIVE EAR/PULSE OXIMETRY MULTIPLE DETER Margaret Kasper MD [address] [place] [address] [facility] [place] [address] [place] [address] Referral ID Status Reason Start Date Expiration Date V isits Requested Visits Authorized [id number] Closed Auto-Generate d Referral 07/06/2022 08/05/[address] [facility] for visit Narrative* Diagnostic Procedure Only (Routine) - Closed Specialty Diagnoses / Procedures Referred By Contac t Referred To Contact XR IMAGING Diagnoses Chronic midline low back pain with sciatica, sciatica laterality unspecified Procedures XR LUMBAR GENERAL 3V AP/LAT/L5-S1 RADEX SPINE LUMBOSACRAL 2/3 VIEWS Oly Durbin M, MANAGER INSTALLATION.SERVICE DELIVERY DIRECTOR [address] [place] [address] [place] [address] Referral ID Status Reason Start Date Expiration Date V isits Requested Visits Authorized [id number] Closed Auto-Generate d Referral 05/08/2023 06/06/2024 1 1 [facility] Summary Purpose Family History No Family History Records Found Relationship Condition Age at Onset Recorded Date/T eyad mother Malignant neoplasm of liver Unknown father Malignant neoplasm of lung Unknown Advance Directives No Advanced Directives Records FoundDocuments on File Type Date Recorded Patient Department [employer] Expl anation Advance Directive(s) 08/25/2021 8:30 AM Advance Directive(s) 07/27/2021 5:44 PM Advance Directive(s) 10/20/2019 11:23 AM Advance Directive(s) 10/05/2019 10:43 AM Advance Directive(s) 03/25/2019 7:55 AM Advance Directive(s) 01/06/2019 12:24 PM Advance Directive(s) 03/19/2017 9:41 AM Documents on File Type Date Recorded Patient Department [employer] Expl anation Advance Directive(s) 08/25/2021 8:30 AM Advance Directive(s) 07/27/2021 5:44 PM Advance Directive(s) 10/20/2019 11:23 AM Advance Directive(s) 10/05/2019 10:43 AM Advance Directive(s) 03/25/2019 7:55 AM Advance Directive(s) 01/06/2019 12:24 PM Advance Directive(s) 03/19/2017 9:41 AM Advance Directive Response Recorded Date/ Time Advance Directives No May 24 2:30pm Living Will No January 02 2 023 6:52pm Power of Kiln Tender No January 02, 2023 6:52pm Advance Directive Response Recorded Date/ Time Advance Directives No May 24 2:30pm Living Will No January 02 023 11:38pm Power of Kiln Tender No January 02, 2023 11:38pm Latest Code Status on File Code Status Date Activated Date Inactivated Comments Full Code 04/30/2018 3:04 AM 05/05/2018 2:43 PM Reason for Referral Specialty Diagnoses / Procedures Referred By Contac t Referred To Contact Pulmonary and Critical Care Medicine Diagnoses Dyspnea on exertion Procedures CONSULT TO PULM/CRITICAL CARE OFFICE/OUTPATIENT [facility] 60-74 MINUTES Nicole Kenny, MANAGER INSTALLATION.SERVICE DELIVERY DIRECTOR [address] [place] [address] Referral ID Status Reason Start Date Expiration Date Visits Requested Visits Authorized [id number] Authorized PCP Requested Referral 03/13/2022 03/13/2023 1 1 Specialty Diagnoses / Procedures Referred By Contac t Referred To [facility] RESPIRATORY LEEPER Diagnoses Dyspnea on exertion Procedures LUNG DIFFUSION CAPACITY (DLCO) DIFFUSING CAPACITY Nicole Kenny, MANAGER INSTALLATION.SERVICE DELIVERY DIRECTOR [address] [place] [address] [facility] [place] [address] [place] [address] Referral ID Status Reason Start Date Expiration Date Visits Requested Visits Authorized [id number] Authorized Auto-Generat ed Referral 03/13/2022 04/12/2023 1 1 Specialty Diagnoses / Procedures Referred By Contac t Referred To [facility] Diagnoses Dyspnea on exertion Procedures SPIROMETRY - BASELINE AND POST DILATOR BRNCDILAT RSPSE SPMTRY PRE&POST-BRNCDILAT ADMN Nicole Kenny, MANAGER INSTALLATION.SERVICE DELIVERY DIRECTOR [address] [place] [address] [facility] [place] [address] [place] [address] Referral ID Status Reason Start Date Expiration Date Visits Requested Visits Authorized [id number] Authorized Auto-Generat ed Referral 03/13/2022 04/12/2023 1 1 Specialty Diagnoses / Procedures Referred By Contac t Referred To Contact Vascular Surgery Diagnoses PAD (peripheral artery disease) (HCC) Procedures CONSULT TO VASCULAR SURGERY OFFICE/OUTPATIENT [facility] MDM 60-[place] [address] [place] [address] Referral ID Status Reason Start Date Expiration Date Visits Requested Visits Authorized [id number] Authorized PCP Requested Referral 05/11/2022 05/11/2023 1 1 Specialty Diagnoses / Procedures Referred By Contac t Referred To Contact [facility]EE[facility] Diagnoses PAD (peripheral artery disease) [facility] Procedures PVR LEG SHERIN VAS LAB NON-INVASIVE PHYSIOLOGIC STUDY EXTREMITY 3 LEVLS Ulises Hermosillo MD [address] [place] [address] [facility] [place] [address], [place] [address] Referral ID Status Reason Start Date Expiration Date Visits Requested Visits Authorized [id number] Authorized Auto-Generat ed Referral 05/11/2022 05/11/2023 1 1 Specialty Diagnoses / Procedures Referred By Contac t Referred To Contact CT IMAGING Diagnoses Smoker Encounter for screening for malignant neoplasm of lung Procedures CT LUNG SCREEN WO IVCON COMPUTED TOMOGRAPHY THORAX LW DOSE LNG CA SCR C- Nicole Kenny, MELISSA.SERVICE DELIVERY DIRECTOR [address] [place] [address] Ct Imaging Referral ID Status Reason Start Date Expiration Date Visits Requested Visits Authorized [id number] Pending Review Auto-Generat ed Referral 05/30/2022 06/29/2023 1 1 Specialty Diagnoses / Procedures Referred By Contac t Referred To Contact [facility] Diagnoses Radiculopathy, lumbar region Chronic midline low back pain with sciatica, sciatica laterality unspecified Procedures CONSULT TO PHYSICAL THERAPY PHYSICAL THERAPY EVALUATION HIGH COMPLEX 45 MINS Older, Oly MANAGER INSTALLATION.SERVICE DELIVERY DIRECTOR [address] [place] [address] [facility] [place] [address] [place] [address] Referral ID Status Reason Start Date Expiration Date Visits Requested Visits Authorized [id number] Pending Review Auto-Generat ed Referral 05/13/2023 05/12/2024 1 1 Specialty Diagnoses / Procedures Referred By Contac t Referred To Contact Pain Management Diagnoses Radiculopathy, lumbar region Chronic midline low back pain with sciatica, sciatica laterality unspecified Procedures CONSULT TO PAIN MGT OFFICE/OUTPATIENT [facility] MDM 60-74 MINUTES Older, RAZIA AldridgeN.SERVICE DELIVERY DIRECTOR [address] [place] [address] Referral ID Status Reason Start Date Expiration Date Visits Requested Visits Authorized [id number] Pending Review PCP Requested Referral 05/13/2023 05/12/2024 1 1 Specialty Diagnoses / Procedures Referred By Contac t Referred To Contact CT IMAGING Diagnoses Encounter for screening for lung cancer Tobacco use current Procedures CT LUNG SCREEN WO IVCON COMPUTED TOMOGRAPHY THORAX LW DOSE LNG CA Fifi Fitzpatrick, MELISSA.SERVICE DELIVERY DIRECTOR [address] [place] [address] Ct Imaging Referral ID Status Reason Start Date Expiration Date Visits Requested Visits Authorized [id number] Pending Review Auto-Generat ed Referral 05/28/2023 06/26/2024 [...] section and content) DATE CREATED AUTHOR 04/29/2018 [facility] DATE CREATED AUTHOR AUTHOR'S ORGANIZ ATION 05/04/2018 [facility] DATE CREATED AUTHOR AUTHOR'S ORGANIZ ATION 01/05/2022 [facility] DATE CREATED AUTHOR AUTHOR'S ORGANIZ ATION 08/11/2022 [facility] DATE CREATED AUTHOR AUTHOR'S ORGANIZ ATION 12/29/2022 [facility] ([place]) DATE CREATED AUTHOR AUTHOR'S ORGANIZ ATION 01/08/2023 [facility] DATE CREATED AUTHOR AUTHOR'S ORGANIZ ATION 10/05/2023 [facility] DATE CREATED AUTHOR AUTHOR'S ORGANIZ ATION 07/02/2025 [facility] DATE CREATED AUTHOR AUTHOR'S ORGANIZ ATION 07/25/2025 [facility] DATE CREATED AUTHOR AUTHOR'S ORGANIZ ATION 07/28/2025 [facility] Source Comments (unrecognize d section and content) In the event this informatio n is protected by the Federal Confidentiality of Alcohol and Drug Abuse Patient Records regulations: The Federal rules restrict any use of the information to criminally investigate or prosecute any alcohol or drug abuse patient.[facility] the event this information is protected by the Federal Confidentiality of Alcohol and Drug Abuse Patient Records regulations: The Federal rules restrict any use of the information to criminally investigate or prosecute any alcohol or drug abuse patient.[facility] HospitalIn the event this information is protected by the Federal Confidentiality of Alcohol and Drug Abuse Patient Records regulations: The Federal rules restrict any use of the information to criminally investigate or prosecute any alcohol or drug abuse patient.[facility] HospitalIn the event this information is protected by the Federal Confidentiality of Alcohol and Drug Abuse Patient Records regulations: The Federal rules restrict any use of the information to criminally investigate or prosecute any alcohol or drug abuse patient.[facility] HospitalIn the event this information is protected by the Federal Confidentiality of Alcohol and Drug Abuse Patient Records regulations: The Federal rules restrict any use of the information to criminally investigate or prosecute any alcohol or drug abuse patient.[facility] HospitalIn the event this information is protected by the Federal Confidentiality of Alcohol and Drug Abuse Patient Records regulations: The Federal rules restrict any use of the information to criminally investigate or prosecute any alcohol or drug abuse patient.[facility] HospitalIn the event this information is protected by the Federal Confidentiality of Alcohol and Drug Abuse Patient Records regulations: The Federal rules restrict any use of the information to criminally investigate or prosecute any alcohol or drug abuse patient.[facility] HospitalIn the event this information is protected by the Federal Confidentiality of Alcohol and Drug Abuse Patient Records regulations: The Federal rules restrict any use of the information to criminally investigate or prosecute any alcohol or drug abuse patient.[facility] HospitalIn the event this information is protected by the Federal Confidentiality of Alcohol and Drug Abuse Patient Records regulations: The Federal rules restrict any use of the information to criminally investigate or prosecute any alcohol or drug abuse patient.[facility] HospitalIn the event this information is protected by the Federal Confidentiality of Alcohol and Drug Abuse Patient Records regulations: The Federal rules restrict any use of the information to criminally investigate or prosecute any alcohol or drug abuse patient.[facility] HospitalIn the event this information is protected by the Federal Confidentiality of Alcohol and Drug Abuse Patient Records regulations: The Federal rules restrict any use of the information to criminally investigate or prosecute any alcohol or drug abuse patient.[facility] HospitalIn the event this information is protected by the Federal Confidentiality of Alcohol and Drug Abuse Patient Records regulations: The Federal rules restrict any use of the information to criminally investigate or prosecute any alcohol or drug abuse patient.[facility] HospitalIn the event this information is protected by the Federal Confidentiality of Alcohol and Drug Abuse Patient Records regulations: The Federal rules restrict any use of the information to criminally investigate or prosecute any alcohol or drug abuse patient.[facility] HospitalIn the event this information is protected by the Federal Confidentiality of Alcohol and Drug Abuse Patient Records regulations: The Federal rules restrict any use of the information to criminally investigate or prosecute any alcohol or drug abuse patient.[facility] HospitalIn the event this information is protected by the Federal Confidentiality of Alcohol and Drug Abuse Patient Records regulations: The Federal rules restrict any use of the information to criminally investigate or prosecute any alcohol or drug abuse patient.[facility] HospitalIn the event this information is protected by the Federal Confidentiality of Alcohol and Drug Abuse Patient Records regulations: The Federal rules restrict any use of the information to criminally investigate or prosecute any alcohol or drug abuse patient.[facility] HospitalIn the event this information is protected by the Federal Confidentiality of Alcohol and Drug Abuse Patient Records regulations: The Federal rules restrict any use of the information to criminally investigate or prosecute any alcohol or drug abuse patient.[facility] HospitalIn the event this information is protected by the Federal Confidentiality of Alcohol and Drug Abuse Patient Records regulations: The Federal rules restrict any use of the information to criminally investigate or prosecute any alcohol or drug abuse patient.[facility] HospitalIn the event this information is protected by the Federal Confidentiality of Alcohol and Drug Abuse Patient Records regulations: The Federal rules restrict any use of the information to criminally investigate or prosecute any alcohol or drug abuse patient.[facility] HospitalIn the event this information is protected by the Federal Confidentiality of Alcohol and Drug Abuse Patient Records regulations: The Federal rules restrict any use of the information to criminally investigate or prosecute any alcohol or drug abuse patient.[facility] HospitalIn the event this information is protected by the Federal Confidentiality of Alcohol and Drug Abuse Patient Records regulations: The Federal rules restrict any use of the information to criminally investigate or prosecute any alcohol or drug abuse patient.[facility] HospitalIn the event this information is protected by the Federal Confidentiality of Alcohol and Drug Abuse Patient Records regulations: The Federal rules restrict any use of the information to criminally investigate or prosecute any alcohol or drug abuse patient.[facility] HospitalIn the event this information is protected by the Federal Confidentiality of Alcohol and Drug Abuse Patient Records regulations: The Federal rules restrict any use of the information to criminally investigate or prosecute any alcohol or drug abuse patient.[facility] HospitalIn the event this information is protected by the Federal Confidentiality of Alcohol and Drug Abuse Patient Records regulations: The Federal rules restrict any use of the information to criminally investigate or prosecute any alcohol or drug abuse patient.[facility] HospitalIn the event this information is protected by the Federal Confidentiality of Alcohol and Drug Abuse Patient Records regulations: The Federal rules restrict any use of the information to criminally investigate or prosecute any alcohol or drug abuse patient.[facility] HospitalIn the event this information is protected by the Federal Confidentiality of Alcohol and Drug Abuse Patient Records regulations: The Federal rules restrict any use of the information to criminally investigate or prosecute any alcohol or drug abuse patient.[facility] HospitalIn the event this information is protected by the Federal Confidentiality of Alcohol and Drug Abuse Patient Records regulations: The Federal rules restrict any use of the information to criminally investigate or prosecute any alcohol or drug abuse patient.[facility] HospitalIn the event this information is protected by the Federal Confidentiality of Alcohol and Drug Abuse Patient Records regulations: The Federal rules restrict any use of the information to criminally investigate or prosecute any alcohol or drug abuse patient.[facility] HospitalIn the event this information is protected by the Federal Confidentiality of Alcohol and Drug Abuse Patient Records regulations: The Federal rules restrict any use of the information to criminally investigate or prosecute any alcohol or drug abuse patient.[facility] HospitalIn the event this information is protected by the Federal Confidentiality of Alcohol and Drug Abuse Patient Records regulations: The Federal rules restrict any use of the information to criminally investigate or prosecute any alcohol or drug abuse patient.[facility] HospitalIn the event this information is protected by the Federal Confidentiality of Alcohol and Drug Abuse Patient Records regulations: The Federal rules restrict any use of the information to criminally investigate or prosecute any alcohol or drug abuse patient.[facility] HospitalIn the event this information is protected by the Federal Confidentiality of Alcohol and Drug Abuse Patient Records regulations: The Federal rules restrict any use of the information to criminally investigate or prosecute any alcohol or drug abuse patient.[facility] HospitalIn the event this information is [...] or prosecute any alcohol or drug abuse patient.[facility] HospitalIn the event this information is protected by the Federal Confidentiality of Alcohol and Drug Abuse Patient Records regulations: The Federal rules restrict any use of the information to criminally investigate or prosecute any alcohol or drug abuse patient.[facility] HospitalIn the event this information is protected by the Federal Confidentiality of Alcohol and Drug Abuse Patient Records regulations: The Federal rules restrict any use of the information to criminally investigate or prosecute any alcohol or drug abuse patient.[facility] HospitalIn the event this information is protected by the Federal Confidentiality of Alcohol and Drug Abuse Patient Records regulations: The Federal rules restrict any use of the information to criminally investigate or prosecute any alcohol or drug abuse patient.[facility] HospitalIn the event this information is protected by the Federal Confidentiality of Alcohol and Drug Abuse Patient Records regulations: The Federal rules restrict any use of the information to criminally investigate or prosecute any alcohol or drug abuse patient.[facility] HospitalIn the event this information is protected by the Federal Confidentiality of Alcohol and Drug Abuse Patient Records regulations: The Federal rules restrict any use of the information to criminally investigate or prosecute any alcohol or drug abuse patient.[facility] HospitalIn the event this information is protected by the Federal Confidentiality of Alcohol and Drug Abuse Patient Records regulations: The Federal rules restrict any use of the information to criminally investigate or prosecute any alcohol or drug abuse patient.[facility] HospitalIn the event this information is protected by the Federal Confidentiality of Alcohol and Drug Abuse Patient Records regulations: The Federal rules restrict any use of the information to criminally investigate or prosecute any alcohol or drug abuse patient.[facility] HospitalIn the event this information is protected by the Federal Confidentiality of Alcohol and Drug Abuse Patient Records regulations: The Federal rules restrict any use of the information to criminally investigate or prosecute any alcohol or drug abuse patient.[facility] HospitalIn the event this information is protected by the Federal Confidentiality of Alcohol and Drug Abuse Patient Records regulations: The Federal rules restrict any use of the information to criminally investigate or prosecute any alcohol or drug abuse patient.[facility] HospitalIn the event this information is protected by the Federal Confidentiality of Alcohol and Drug Abuse Patient Records regulations: The Federal rules restrict any use of the information to criminally investigate or prosecute any alcohol or drug abuse patient.[facility] HospitalIn the event this information is protected by the Federal Confidentiality of Alcohol and Drug Abuse Patient Records regulations: The Federal rules restrict any use of the information to criminally investigate or prosecute any alcohol or drug abuse patient.[facility] HospitalIn the event this information is protected by the Federal Confidentiality of Alcohol and Drug Abuse Patient Records regulations: The Federal rules restrict any use of the information to criminally investigate or prosecute any alcohol or drug abuse patient.[facility] HospitalIn the event this information is protected by the Federal Confidentiality of Alcohol and Drug Abuse Patient Records regulations: The Federal rules restrict any use of the information to criminally investigate or prosecute any alcohol or drug abuse patient.[facility] HospitalIn the event this information is protected by the Federal Confidentiality of Alcohol and Drug Abuse Patient Records regulations: The Federal rules restrict any use of the information to criminally investigate or prosecute any alcohol or drug abuse patient.[facility] HospitalIn the event this information is protected by the Federal Confidentiality of Alcohol and Drug Abuse Patient Records regulations: The Federal rules restrict any use of the information to criminally investigate or prosecute any alcohol or drug abuse patient.[facility] HospitalIn the event this information is protected by the Federal Confidentiality of Alcohol and Drug Abuse Patient Records regulations: The Federal rules restrict any use of the information to criminally investigate or prosecute any alcohol or drug abuse patient.[facility] HospitalIn the event this information is protected by the Federal Confidentiality of Alcohol and Drug Abuse Patient Records regulations: The Federal rules restrict any use of the information to criminally investigate or prosecute any alcohol or drug abuse patient.[facility] HospitalIn the event this information is protected by the Federal Confidentiality of Alcohol and Drug Abuse Patient Records regulations: The Federal rules restrict any use of the information to criminally investigate or prosecute any alcohol or drug abuse patient.[facility] HospitalIn the event this information is protected by the Federal Confidentiality of Alcohol and Drug Abuse Patient Records regulations: The Federal rules restrict any use of the information to criminally investigate or prosecute any alcohol or drug abuse patient.[facility] Reason for Visit (unrecogniz ed [...] BRNCDILAT RSPSE SPMTRY PRE&POST-BRNCDILAT ADMN Nicole Kenny, MANAGER INSTALLATION.SERVICE DELIVERY DIRECTOR [address] [place] [address] [facility] [place] [address] [place] [address] Referral ID Status Reason Start Date Expiration Date V isits Requested Visits Authorized [id number] Closed Auto-Generate d Referral 03/13/2022 04/12/2023 1 [...] NEW HIGH MDM 60-74 MINUTES Nicole Kenny, MANAGER INSTALLATION.SERVICE DELIVERY DIRECTOR [address] [email or web address] [address] Referral ID Status Reason Start Date Expiration Date V isits Requested Visits Authorized [id number] Closed PCP Requested Referral 03/13/2022 03/13/2023 1 [...] MDM 60-74 MINUTES Ulises Hermosillo MD [address] [place] [address] [address] [place] [address] Referral ID Status Reason Start Date Expiration Date V isits Requested Visits Authorized [id number] Closed PCP Requested Referral 05/11/2022 05/11/2023 1 1 Reason Comments New Patient Hemoptysis Reason Comments Behavioral Health Social Work Reason Comments Shortness of Breath Sent from [facility]. 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 Was sent to [facility] without O2, patient is on 2 L NC routinely Reason Onset Date Comments Population Health Navigation Outreach 04/16/2023 Navigator Kailash amaya [facility] gap outreach Reason Comments Follow [...] Care Teams (unrecognized sec tion and content) Field Crops Harvest Machine Operator Relationship Specialty Start Date End Date Ulises Hermosillo MD [address] [place], [place] [id number] PCP - General Internal Medicine 01/25/16 [employer] Harvest Machine Operator Relationship Specialty Start Date End Date Ulises Hermosillo MD [address] [place] [address] PCP - General Internal Medicine 01/25/16 [employer] Harvest Machine Operator Relationship Specialty Start Date End Date Ulises Hermosillo MD [address] [place] [address] PCP - General Internal Medicine 01/25/16 [employer] Harvest Machine Operator Relationship Specialty Start Date End Date Ulises Hermosillo MD [address] [facility] [place] [address] PCP - General Internal Medicine 01/25/16 Field Crops Harvest Machine Operator Relationship Specialty Start Date End Date Ulises Hermosillo MD [address] [facility] [place] [address] PCP - General Internal Medicine 01/25/16 Field [employer]ps Harvest Machine Operator Relationship Specialty Start Date End Date Ulises Hermosillo MD [address] [facility] [place] [address] PCP - General Internal Medicine 01/25/16 Field Crops Harvest Machine Operator Relationship Specialty Start Date End Date Ulises Hermosillo MD [address] [facility] [place] [address] PCP - General Internal Medicine 01/25/16 Field Crops Harvest Machine Operator Relationship Specialty Start Date End Date Ulises Hermosillo MD [address] [facility] [place] [address] PCP - General Internal Medicine 01/25/16 Field [employer]ps Harvest Machine Operator Relationship Specialty Start Date End Date Ulises Hermosillo MD [address] [facility] [place] [address] PCP - General Internal Medicine 01/25/16 Field [employer]ps Harvest Machine Operator Relationship Specialty Start Date End Date Ulises Hermosillo MD [address] [facility] [place] [address] PCP - General Internal Medicine 01/25/16 Field Crops Harvest Machine Operator Relationship Specialty Start Date End Date Ulises Hermosillo MD [address] [facility] [place] [address] PCP - General Internal Medicine 01/25/16 Field Crops Harvest Machine Operator Relationship Specialty Start Date End Date Ulises Hermosillo MD [address] [facility] [place] [address] PCP - General Internal Medicine 01/25/16 Field Crops Harvest Machine Operator Relationship Specialty Start Date End Date Ulises Hermosillo MD [address] [facility] [place] [address] PCP - General Internal Medicine 01/25/16 Field Crops Harvest Machine Operator Relationship Specialty Start Date End Date Ulises Hermosillo MD [address] [facility] [place] [address] PCP - General Internal Medicine 01/25/16 Field Crops Harvest Machine Operator Relationship Specialty Start Date End Date Ulises Hermosillo MD [address] [facility] [place] [address] PCP - General Internal Medicine 01/25/16 Field Crops Harvest Machine Operator Relationship Specialty Start Date End Date Ulises Hermosillo MD [address] [facility] [place] [address] PCP - General Internal Medicine 01/25/16 Field Crops Harvest Machine Operator Relationship Specialty Start Date End Date Ulises Hermosillo MD [address] [facility] [place] [address] PCP - General Internal Medicine 01/25/16 Field Crops Harvest Machine Operator Relationship Specialty Start Date End Date Ulises Hermosillo MD [address] [facility] [place] [address] PCP - General Internal Medicine 01/25/16 Field Crops Harvest Machine Operator Relationship Specialty Start Date End Date Ulises Hermosillo MD [address] [facility] [place] [address] PCP - General Internal Medicine 01/25/16 Field Crops Harvest Machine Operator Relationship Specialty Start Date End Date Ulises Hermosillo MD [address] [facility] [place] [address] PCP - General Internal Medicine 01/25/16 Field Crops Harvest Machine Operator Relationship Specialty Start Date End Date Ulises Hermosillo MD [address] [place] [address] PCP - General Internal Medicine 01/25/16 Field Crops Harvest Machine Operator Relationship Specialty Start Date End Date Ulises Hermosillo MD [address] [place] [address] PCP - General Internal Medicine 01/25/16 Team [...] Ulises Hermosillo MD Primary Care Provider Active iMah Koroma MD Emergency Provider Active Dr. Linda [...] Dr. Joel Sauer DO Other Provider Active [employer] Harvest Machine Operator Relationship Specialty Start Date End Date Ulises Hermosillo MD [address] [facility], [place] [id number] PCP - General Internal Medicine 01/25/16 Field Crops Harvest Machine Operator Relationship Specialty Start Date End Date Ulises Hermosillo MD [address] [facility] [place] [address] PCP - General Internal Medicine 01/25/16 Field Crops Harvest Machine Operator Relationship Specialty Start Date End Date Ulises Hermosillo MD [address] [place] [address] PCP - General Internal Medicine 01/25/16 Field Crops Harvest Machine Operator Relationship Specialty Start Date End Date Ulises Hermosillo MD [address] [place] [address] PCP - General Internal Medicine 01/25/16 Field Crops Harvest Machine Operator Relationship Specialty Start Date End Date Ulises Hermosillo MD [address] [place] [address] PCP - General Internal Medicine 01/25/16 Field [employer]ps Harvest Machine Operator Relationship Specialty Start Date End Date Ulises Hermosillo MD [address] [place] [address] PCP - General Internal Medicine 01/25/16 [employer] Relationship Specialty Start Date End Date Ulises Hermosillo MD [address] [place] [address] PCP - General Internal Medicine 01/25/16 [employer] Machine Operator Relationship Specialty Start Date End Date Ulises Hermosillo MD [address] [place] [address] PCP - General Internal Medicine 01/25/16 [employer] Machine Operator Relationship Specialty Start Date End Date Ulises Hermosillo MD [address] [place] [address] PCP - General Internal Medicine 01/25/16 [employer] Machine Operator Relationship Specialty Start Date End Date Ulises Hermosillo MD [address] [facility] [place] [address] PCP - General Internal Medicine 01/25/16 [employer] Machine Operator Relationship Specialty Start Date End Date Ulises Hermosillo MD [address] [facility] [place] [address] PCP - General Internal Medicine 01/25/16 01/14/24 [employer] Machine Operator Relationship Specialty Start Date End Date Ulises Hermosillo MD [address] [facility] [place] [address] PCP - General Internal Medicine 01/25/16 01/14/24 [employer] Machine Operator Relationship Specialty Start Date End Date Ulises Hermosillo MD [address] [facility] [place] [address] PCP - General Internal Medicine 01/25/16 01/14/24 Gabriella Chambers RN [address] [facility] [place] [address] Primary Service Internal Medicine 02/27/18 04/26/21 [employer] Machine Operator Relationship Specialty Start Date End Date Ulises Hermosillo MD [address] [facility] [place] [address] PCP - General Internal Medicine 01/25/16 01/14/24 Gabriella Chambers RN [address] [facility] [place] [address] Primary Service Internal Medicine 02/27/18 04/26/21 Care Team (unrecognized sect ion and content) Personnel Name: ULISES HERMOSILLO MD Address: Address: [address] [place] [address]- Personnel Name: ULISES HERMOSILLO MD Address: Address: [address] [place] [address]- Care Team Personnel Name: ULISES HERMOSILLO MD Member Role: Primary Care Physician Address: Address: [address] [place] [address]- Name: Yolanda Gonzalez RN Position: RN Member Role: RN Name: ZINA GLOVER DO Position: ED Physician Address: Address: [address] [facility] [place] [address]- [place] Name: BRIAN TRINIDAD DO Position: Resident Member Role: ED Physician Address: Address: [address] [place] [place] [address]- Care Team Related Persons Name: MELY SERNA Address: Home [address] [place] [address] [place] Name: MELY SERNA Address: Home [address] [place] [address] [place] Name: MELY SERNA Address: Home [address] [place] [address] [place] Name: MELY SERNA Address: Home [address] [place] [address] [place] Name: MELY SERNA Address: Home [address] [place] [address] [place] Name: MELY SERNA Address: Home [address] [place] [address] [place] Name: MELY SERNA Address: Home [address] Care Team Personnel Name: ULISES HERMOSILLO MD Member Role: Primary Care Physician Address: Address: [address] [place] [address]- [place] Name: MD JOSE ROBERTO COMBS MD Position: ED Physician Member Role: ED Physician [facility]: [facility] [address] [place] [address]- [place] Care Team Related Persons Name: MELY SERNA Address: Home [address] [place] [address] [place] Name: MELY SERNA Address: Home [address] [place] [address] [place] Name: MELY SERNA Address: Home [address] [place] [address] [place] Name: MELY SERNA Address: Home [address] [place] [address] [place] Name: MELY SERNA Address: Home [address] [place] [address] [place] Name: MELY SERNA Address: Home [address] [place] [address] [place] Name: MELY SERNA Address: Home [address] Goals (unrecognized section and content) Goals [...] BE BASED ON THE PRIMARY CLINICAL RECORDS. [employer] [facility]. provides no warranty or guarantee of the accuracy or completeness of information in this document.
[2025-11-02 08:42] LABS: Hematocrit 29.8 % (37-47); Hemoglobin 9.0 g/dL (12.0-15.0); Mean Corp Hgb Conc 30.2 g/dL (32-36); Mean Corpuscular Volume 79.5 fL (81-99); Mean Platelet Vol. 9.9 fl (6.2-12.0); Platelet Count 614 K/mm3 (150-450); RBC Distribution Width CV 17.8 % (11.6-14.6); RBC Distribution Width SD 51.4 fl (35.1-43.9); Red Blood Count 3.75 M/mm3 (4.2-5.4); White Blood Count 6.3 K/mm3 (4.4-11.0)
== END ==
LOC: OLS.SW 05:00
DX: J44.9 Chronic obstructive pulmonary disease, unspecified (principal)
CPT/HCPCS: 36415; 85027

== ENCOUNTER → 2025-11-09 05:00 | Outpatient (REF) | payer MEDICARE, MEDICAID, SELFPAY ==
--- OUTSIDE RECORDS SUMMARY | 2025-11-09 04:36 | XMS RPT_ITS | CCD ---
Author Organization [facility] Care Team Providers Care Assisted Living Coordinator Name Role Phone PROVIDER, UNKNOWN Unavailable Unavailable No, PCP Unavailable Unavailable Qasim Martinez Unavailable Ulises Caruso MD Primary Care Provider DR ULISES HERMOSILLO MD Primary Care Physician [phone] Ulises Hermosillo MD Primary Care Provider ULISES [...] DO, EMMA M Primary Care Unavailable SOSA MONTAGUEAIR POLLUTION INSPECTOR, ELLEN Attending Unavailab lesly FANG MD, DR [...] MODESTA CASTILLO, DR MONTGOMERY Primary Care Unavaila krala DIGUILLEEY, EMMA Attending Unavailable DITCHEY, EMMA Primary [...] Attending Unavailable JEANNE CASTILLO, JESENIA Referring Unavailable BIRAN TRINIDAD DO Attending Unavailable EMBERTCHEY, EMMA Primary Care Unavailable ANKITA CASTILLO, DR ROWE Consulting Unavailab lesly SCHNEIDEREY, EMMA Primary Care Unavailable JASMINE KINNEY, GWYN De La O Admitting Unavailable SHAUNA VALDEZ DO Attending Unavailable Allergies Allergy Classification Reported Allergen(s) Allergy Type Date of Onset Reaction(s) Facility (1 source) PHENobarbital Drug Allergy 01-05-2023 [facility] (1 source) PHENobarbital Drug Allergy 01-05-2023 [facility] Repository Medications Current Medications Medication Drug Class(es) Dates Sig (Normalized) Sig (Original) albuterol 0.21 mg/ml inhalation solution (20 sources) beta2-Adrenergic Agonist Start: 01-11-2025 take 1 dose by inhalation four times daily albuterol 0.63 mg/3 mL (0.021%) inhalation solution Dose : 0.63 mg = 3 mL, Inhalation, QID, # 90 mL, 1 Refill(s), Pharmacy: [facility]/pharmacy #[id number], 167.6, cm, 01/11/25 11:11:00 [...] wheezing, # 18 gram(s), 11 Refill(s), Pharmacy: [facility]/pharmacy #[id number], COPD with chronic bronchitis, 165.1, cm, 03/04/25 [...] wheezing, # 18 gram(s), 11 Refill(s), Pharmacy: [facility]/pharmacy #4605, COPD with chronic bronchitis, [...] qDay, # 30 tab(s), 11 Refill(s), Pharmacy: [facility]/pharmacy #4605, 165, cm, 11/30/24 9:43:00 [...] qDay, # 90 tab(s), 3 Refill(s), Pharmacy: [facility]/pharmacy #4605, Stented coronary artery CAD in round [...] TID, # 90 tab(s), 0 Refill(s), Pharmacy: [facility]/pharmacy #4605, 165.1, cm, 03/04/25 7:59:00 [...] cap(s), 0 Refill(s), 05/08/22 11:02:00 EDT, [id number] 165.1, cm, 05/02/22 9:53:00 EDT, Height, 60 Start Date: 05/05/22 Stop Date: 05/08/22 Status: Ordered clopidogrel 75 mg oral tablet (20 sources) P2Y12 Platelet Inhibitor Start: 10-23-2024 clopi dogrel 75 mg oral tablet Dose : 75 mg = 1 tab(s), Oral, Daily, # 90 tab(s), 3 Refill(s), Pharmacy: [facility]/pharmacy #[id number], 162.5, cm, 10/23/24 13:20:00 [...] Comment on above: Take 1 tablet by [facility] once daily. doxycycline hyclate 100 mg [...] qAM, # 30 tab(s), 0 Refill(s), Pharmacy: [facility], 165.1, cm, 06/12/25 19:25:00 EDT, Height, [...] take 1 puff(s) by inhalation once daily lmlvswlvbdw-ntqbfsava-keitkhsw (TRELEGY ELLIPTA) 200-62.5-25 mcg inhalation powder Inhale 1 Puff as instructed once daily. 60 Each 11/26/2022 12/26/2022 Active Start: 07-23-2022 End: 11-26-2022 take 1 puff(s) by inhalation once daily idmtsfbkhco-oyszbxstg-eyhkabgw (TRELEGY ELLIPTA) 200-62.5-25 mcg inhalation powder Inhale 1 Puff as instructed once daily. 60 Each 07/23/2022 11/26/2022 Discontinued Start: 07-23-2022 take 1 puff(s) by inhalation once daily xvtgdtkmwyb-jfhclxmdk-dugsbasg (TRELEGY ELLIPTA) 200-62.5-25 mcg inhalation powder Inhale 1 Puff as instructed once daily. 60 Each 07/23/2022 Active Start: 07-23-2022 End: 08-22-2022 take 1 puff(s) by inhalation once daily wmpovmrrxik-cqwyenwam-ckbmluzo (TRELEGY ELLIPTA) 200-62.5-25 mcg inhalation powder Inhale 1 Puff as instructed once daily. 60 Each 07/23/2022 08/22/2022 Active Start: 06-06-2022 End: 07-20-2022 take 1 puff(s) by inhalation once daily hwtuesqbmjv-jupjoefme-zttqamcn (TRELEGY ELLIPTA) 200-62.5-25 mcg inhalation powder Inhale 1 Puff as instructed once daily. 60 Each 06/06/2022 07/20/2022 Discontinued Start: 06-06-2022 take 1 puff(s) by inhalation once daily eemfeebmpti-xpeffqigd-itklzvnv (TRELEGY ELLIPTA) 200-62.5-25 mcg inhalation powder Inhale 1 Puff as instructed once daily. 60 Each 06/06/2022 Active Start: 06-06-2022 End: 07-06-2022 take 1 puff(s) by inhalation once daily ayyksheeuuc-lokhpzlgf-fzjwpcog (TRELEGY ELLIPTA) 200-62.5-25 mcg inhalation powder Inhale 1 Puff as instructed once daily. 60 Each 06/06/2022 07/06/2022 Active Comment on above: Inhale 1 Puff as ins tructed once daily. furosemide 40 mg oral tablet (4 sources) Loop Diuretic Start: 06-15-2025 Lasix 40 mg oral tablet Dose : 40 mg = 1 tab(s), Oral, qDay, # 30 tab(s), 0 Refill(s), Pharmacy: [facility], 165.1, cm, 06/12/25 19:25:00 EDT, Height, [...] qDay, # 90 cap(s), 3 Refill(s), Pharmacy: [facility]/pharmacy #[id number], GERD (gastroesophageal reflux disease), 162.5, cm, 10/23/24 [...] End: 03-14-2025 prednisone 10mg tab (TAPER) Taper 92-42-61-65-11-30-10-5 mg x 1 day until gone, Oral, qAM, # 18 tab(s), 0 Refill(s), Pharmacy: [facility]/pharmacy #[id number], 165.1, cm, 03/04/25 7:59:00 [...] tab(s), 0 Refill(s), 05/08/22 11:01:00 EDT, Pharmacy: [facility]/pharmacy #[id number], 165.1, cm, 05/02/22 9:53:00 EDT, Height Start Date: 05/05/22 Stop Date: 05/08/22 Status: Ordered Comment on above: Take two daily for 5 days then one daily for 10 days QUEtiapine 25 mg oral tablet (2 sources) Atypical Antipsychotic Start: 06-15-2025 Seroquel 25 mg oral tablet Dose : 25 mg = 1 tab(s), Oral, qHS, # 30 tab(s), 0 Refill(s), Pharmacy: [facility]/pharmacy #4605, 165.1, cm, 06/12/25 19:25:00 [...] qDay, # 30 tab(s), 11 Refill(s), Pharmacy: [facility]/pharmacy #4605, 165, cm, 11/30/24 9:43:00 [...] BID, # 180 tab(s), 3 Refill(s), Pharmacy: [facility], 165.1, cm, 06/12/25 19:25:00 EDT, Height, kg, 06/12/25 19:25:00 EDT, Dosing Weight Start Date: 06/15/25 Status: Ordered Medication Dispense Status: Completed Quantity: 180.0 Unit: tab(s) Total Allowed Fills: 4 Fills Dispensed: 0 Start: 01-29-2025 take 1 tablet by sukumar th twice daily Entresto 24 mg-26 mg oral tablet Dose = 1 tab(s), Oral, BID, # 180 tab(s), 3 Refill(s), Pharmacy: [facility]/pharmacy #[id number], 162.5, cm, 01/21/25 13:39:00 EDT, Height, kg, 01/21/25 13:39:00 EDT, Dosing Weight Start Date: 01/29/25 Status: Ordered Quantity: 180.0 Unit: tab(s) Repeat number: 4 Symbicort 160 mcg-4.5 mcg/inh Inhaler (3 sources) Start: 05-05-2022 take 1 dose by inhalation twice daily Symbicort 160 mcg-4.5 mcg/inh Inhaler Dose = 2 puff(s), Inhalation, BID, # 10.2 gram(s), 0 Refill(s), Pharmacy: [facility]/pharmacy #[id number], 165.1, cm, 05/02/22 9:53:00 EDT, Height Start Date: 05/05/22 Status: Ordered traZODone hydrochloride 100 mg oral tablet (20 sources) Serotonin Reuptake Inhibitor Start: 10-23-2024 traZODone 100 mg oral tablet Dose : 100 mg = 1 tab(s), Oral, qHS, # 90 tab(s), 3 Refill(s), Pharmacy: [facility]/pharmacy #4605, Psychophysiologic insomnia, 162.5, cm, [...] day, # 60 EA, 5 Refill(s), Pharmacy: [facility]/pharmacy #4605, 162.5, cm, 01/21/25 13:39:00 [...] day, # 60 EA, 5 Refill(s), Pharmacy: [facility]/pharmacy #4605, 162.5, cm, 01/21/25 13:39:00 [...] Discontinued Start: 07-29-2017 take 1 capsule by [facility] three times daily as needed Hydroxyzine Pamoate (Vistaril) 50 mg capsule Active 50 MG PO 3 TIMES DAILY NEEDED July 28, 2017 11:00pm Comment on above: Take 1 capsule by [facility] three times daily as needed for Anxiety. [...] release), # 30 tab(s), 11 Refill(s), Pharmacy: [facility], 165.1, cm, 06/12/25 19:25:00 EDT, Height, [...] release), # 30 tab(s), 11 Refill(s), Pharmacy: [facility]/pharmacy #4605, 165, cm, 11/30/24 9:43:00 EST, Height, kg, 11/30/24 9:43:00 EST, Dosing Weight Start Date: 11/30/24 Status: Ordered Quantity: 30.0 Unit: tab(s) Repeat number: 12 Start: 02-01-2017 End: 09-27-2021 take 1 tablet by mouth twice daily metoprolol tartrate, short acting, (LOPRESSOR) 25 mg tablet Indications: Essential hypertension Take 1 tablet by mouth twice daily. 60 tablet 5 07/06/2020 09/27/2021 Discontinued nystatin [id number] unt/ml oral suspension (11 sources) Polyene Antifungal [...] senior care (current) drug therapy; Translations: [Other exterminator (current) drug therapy] Onset: 03-04-2025 Episodic Other aftercare (1 source) Encounter for therapeutic drug level monitoring; Translations: [Encounter for therapeutic drug level monitoring] Onset: 03-04-2025 Episodic Other aftercare (1 source) terminal operator (current) use of antithrombotics/antip latelets; Translations: [residential (current) use of antithrombotics/antip latelets] Onset: 03-04-2025 Episodic Other aftercare (1 source) residential (current) use of aspirin; Translations: [residential (current) use of aspirin] Onset: 03-04-2025 Episodic Other aftercare (1 source) residential (current) use of inhaled steroids; Translations: [terminal operator (current) use of inhaled steroids] Onset: 03-04-2025 [...] width (RBC) [Ratio] 17.0 % High 11.6-14.6 [facility] Comment on above: Order Comment: 108 Performed By: #### L [id number], L500.4050, L100.0500, L500.4100, L501.9985, L501.9520 #### [facility] [address], [address] Hematocrit (Bld) [Volume fraction] 36.2 % Low 37-47 [facility] Comment on above: Order Comment: 108 Performed By: #### L [id number], L500.4050, L100.0500, L500.4100, L501.9985, L501.9520 #### [facility] [address] [place], [address] Hemoglobin (Bld) [Mass/Vol] 11.5 g/dL Low 12.0-15.0 [facility] Comment on above: Order Comment: 108 Performed By: #### L [id number], L500.4050, L100.0500, L500.4100, L501.9985, L501.9520 #### [facility] [address] [place], [address] MCH (RBC) [Entitic mass] 29.3 pg Normal 27.0-32.0 [facility] Comment on above: Order Comment: 108 Performed By: #### L [id number], L500.4050, L100.0500, L500.4100, L501.9985, L501.9520 #### [facility] [address] [place], [address] MCHC (RBC) [Mass/Vol] 31.8 g/dL Low 32-36 [facility] Comment on above: Order Comment: 108 Performed By: #### L [id number], L500.4050, L100.0500, L500.4100, L501.9985, L501.9520 #### [facility] [address] [place], [address] MCV (RBC) [Entitic vol] 92.3 fL Normal 81-[address] [facility] Comment on above: Order Comment: 108 Performed By: #### L [id number], L500.4050, L100.0500, L500.4100, L501.9985, L501.9520 #### [facility] [address] [place], [address] Platelet mean volume (Bld) [Entitic vol] 10.8 fL Normal 6.2-12.0 [facility] Comment on above: Order Comment: 108 Performed By: #### L [id number], L500.4050, L100.0500, L500.4100, L501.9985, L501.9520 #### [facility] [address] [place], [address] Platelets (Bld) [#/Vol] 385 10*3/uL Normal 150-450 [facility] Comment on above: Order Comment: 108 Performed By: #### L [id number], L500.4050, L100.0500, L500.4100, L501.9985, L501.9520 #### [facility] [address] [place], [address] RBC (Bld) [#/Vol] 3.92 10*6/uL Low 4.2-5.4 [facility] Comment on above: Order Comment: 108 Performed By: #### L [id number], L500.4050, L100.0500, L500.4100, L501.9985, L501.9520 #### [facility] [address] [place], [address] RDW SD 57.4 fl High 35.1-43.9 [facility] Comment on above: Order Comment: 108 Performed By: #### L 501.9310, L500.4050, L100.0500, L500.4100, L501.9985, L501.9520 #### [facility] [address] [place], [address] WBC (Bld) [#/Vol] 6.5 10*3/uL Normal 4.4-11.0 [facility] Comment on above: Order Comment: 108 Performed By: #### L [id number], L500.4050, L100.0500, L500.4100, L501.9985, L501.9520 #### [facility] [address] [place], [address] Comprehensive Metabolic Prof ilon 07-13-2025 Albumin [Mass/Vol] 3.5 g/dL Normal 3.4-4.8 [facility] Comment on above: Order Comment: 108 Performed By: #### L 501.9310, L500.4050, L100.0500, L500.4100, L501.9985, L501.9520 #### [facility] [address] [place], [address] Albumin/Globulin [Mass ratio] 1.2 {ratio} Normal 0.9-2.4 [facility] Comment on above: Order Comment: 108 Performed By: #### L 501.9310, L500.4050, L100.0500, L500.4100, L501.9985, L501.9520 #### [facility] [address] [place], [address] ALK PHOS 62 U/L Normal 35-104 [facility] Comment on above: Order Comment: 108 Performed By: #### L 501.9310, L500.4050, L100.0500, L500.4100, L501.9985, L501.9520 #### [facility] [address] [place], [address] ALT [Catalytic activity/Vol] U/L Normal <=34 [facility] Comment on above: Order Comment: 108 Performed By: #### L 501.9310, L500.4050, L100.0500, L500.4100, L501.9985, L501.9520 #### [facility] [address] [place], [address] AST [Catalytic activity/Vol] 17 U/L Normal <=31 [facility] Comment on above: Order Comment: 108 Performed By: #### L 501.9310, L500.4050, L100.0500, L500.4100, L501.9985, L501.9520 #### [facility] [address] [place], [address] Bilirubin [Mass/Vol] 0.17 mg/dL Normal 0.00-1.30 [facility] Comment on above: Order Comment: 108 Performed By: #### L 501.9310, L500.4050, L100.0500, L500.4100, L501.9985, L501.9520 #### [facility] [address] [place], [address] BUN/CRE 31.1 RATIO High 10-20 [facility] Comment on above: Order Comment: 108 Performed By: #### L 501.9310, L500.4050, L100.0500, L500.4100, L501.9985, L501.9520 #### [facility] [address] [place], [address] Calcium [Mass/Vol] 9.1 mg/dL Normal 7.6-11.0 [facility] Comment on above: Order Comment: 108 Performed By: #### L 501.9310, L500.4050, L100.0500, L500.4100, L501.9985, L501.9520 #### [facility] [address] [place], [address] Chloride [Moles/Vol] 103 mmol/L Normal 98-108 [facility] Comment on above: Order Comment: 108 Performed By: #### L 501.9310, L500.4050, L100.0500, L500.4100, L501.9985, L501.9520 #### [facility] [address] [place], [address] CO2 [Moles/Vol] 25.7 mmol/L Normal 21.0-32.0 [facility] Comment on above: Order Comment: 108 Performed By: #### L 501.9310, L500.4050, L100.0500, L500.4100, L501.9985, L501.9520 #### [facility] [address] [place], [address] Creatinine [Mass/Vol] 0.85 mg/dL Normal 0.70-1.20 [facility] Comment on above: Order Comment: 108 Performed By: #### L 501.9310, L500.4050, L100.0500, L500.4100, L501.9985, L501.9520 #### [facility] [address] [place], [address] GAP 9 Normal 5-15 [facility] Comment on above: Order Comment: 108 Performed By: #### L 501.9310, L500.4050, L100.0500, L500.4100, L501.9985, L501.9520 #### [facility] [address] [place], [address] GFR/1.73 sq M.predicted among non-blacks MDRD (S/P/Bld) [Vol rate/Area] 74 mL/min/{1.73_m2} Normal >60 [facility] Comment on above: Order Comment: 108 Result Comment: mL/m in/1.73m2 CKD-EPI Creatinine Equation (2020) Performed By: #### L 501.9310, L500.4050, L100.0500, L500.4100, L501.9985, L501.9520 #### [facility] [address] [place], [address] Globulin (S) [Mass/Vol] 3.0 g/dL Normal 2.2-4.2 [facility] Comment on above: Order Comment: 108 Performed By: #### L 501.9310, L500.4050, L100.0500, L500.4100, L501.9985, L501.9520 #### [facility] [address] [place], [address] Glucose [Mass/Vol] 98 mg/dL Normal 70-99 [facility] Comment on above: Order Comment: 108 Performed By: #### L 501.9310, L500.4050, L100.0500, L500.4100, L501.9985, L501.9520 #### [facility] [address] [place], [address] Potassium [Moles/Vol] 4.5 mmol/L Normal 3.3-5.1 [facility] Comment on above: Order Comment: 108 Performed By: #### L 501.9310, L500.4050, L100.0500, L500.4100, L501.9985, L501.9520 #### [facility] [address] [place], [address] Sodium [Moles/Vol] 138 mmol/L Normal 133-145 [facility] Comment on above: Order Comment: 108 Performed By: #### L 501.9310, L500.4050, L100.0500, L500.4100, L501.9985, L501.9520 #### [facility] [address] [place], [address] T PROT 6.4 g/dL Normal 5.9-8.4 [facility] Comment on above: Order Comment: 108 Performed By: #### L 501.9310, L500.4050, L100.0500, L500.4100, L501.9985, L501.9520 #### [facility] [address] [place], [address] Urea nitrogen [Mass/Vol] 27 mg/dL High 4-19 [facility] Comment on above: Order Comment: 108 Performed By: #### L 501.9310, L500.4050, L100.0500, L500.4100, L501.9985, L501.9520 #### [facility] [address] [place], [address] Hemoglobin A1con 07-13-2025 HbA1c (Bld) [Mass fraction] 5.7 % Normal <=5.6 [facility] Comment on above: Order Comment: 108 Result Comment: Norm al < 5.7 % Prediabetic 5.7 - 6.4 % Diabetic >or= 6.5 % Please note range changes. Performed By: #### L 501.9310, L500.4050, L100.0500, L500.4100, L501.9985, L501.9520 #### [facility] [address] [place], [address] Lipid Profileon 07-13-2025 CHOL:HDL 2.44 Normal [facility] Comment on above: Order Comment: 108 Performed By: #### L 501.9310, L500.4050, L100.0500, L500.4100, L501.9985, L501.9520 #### [facility] [address] [place], [address] Cholesterol [Mass/Vol] 127 mg/dL Normal <=200 [facility] Comment on above: Order Comment: 108 Result Comment: Chol esterol level, Desirable <200 mg/dL Borderline high cholesterol 200-239 mg/dL High cholesterol >=240 mg/dL Recommendations of the NCEP Adult Treatment Panel for the following risk-cutoff thresholds for the [place] population. Performed By: #### L 501.9310, L500.4050, L100.0500, L500.4100, L501.9985, L501.9520 #### [facility] [address] [place], [address] Cholesterol in HDL [Mass/Vol] 52 mg/dL Normal [facility] Comment on above: Order Comment: 108 Result Comment: [place] on[place] Cholesterol Education Program (NCEP) guidelines: <40 mg/dL: Low HDL-cholesterol (major risk factor for CHD) >= 60 mg/dL: High HDL-cholesterol (negative risk factor for CHD) HDL-cholesterol is affected by a number of factors, e.g. smoking, exercise, hormones, sex and age. Performed By: #### L 501.9310, L500.4050, L100.0500, L500.4100, L501.9985, L501.9520 #### [facility] [address] [place], [address] Cholesterol in LDL [Mass/Vol] 52 mg/dL Normal [facility] Comment on above: Order Comment: 108 Result Comment: Bord xivgtf=151-000 mg/dL Higher Fzbm=991 mg/dL or greater Friedwald Equation for LDL-C Performed By: #### L 501.9310, L500.4050, L100.0500, L500.4100, L501.9985, L501.9520 #### [facility] [address] [place], [address] Cholesterol in VLDL [Mass/Vol] 23 mg/dL Normal 5-40 [facility] Comment on above: Order Comment: 108 Performed By: #### L 501.9310, L500.4050, L100.0500, L500.4100, L501.9985, L501.9520 #### [facility] [address] [place], [place], [address] Triglyceride [Mass/Vol] 113 mg/dL Normal [facility] Comment on above: Order Comment: 108 Result Comment: The drugs N-Acetylcysteine and Metamizole may falsely depress this assay. Normal range: <150 mg/dL Borderline High: 150-199 mg/dL High: 200-499 mg/dL Very High: >500 mg/dL Performed By: #### L 501.9310, L500.4050, L100.0500, L500.4100, L501.9985, L501.9520 #### [facility] [address] [place], [address] T4 Total, Thyroxinon 025 T4 [Mass/Vol] 6.1 ug/dL Normal 4.8-13.9 [facility] Comment on above: Order Comment: 108 Performed By: #### L 501.9310, L500.4050, L100.0500, L500.4100, L501.9985, L501.9520 #### [facility] [address] [place], [place], [address] Thyroid Stim Hormone (TSH)on 07-13-2025 TSH 3.620 uIU/mL Normal 0.300-4.200 [facility] Comment on above: Order Comment: 108 Performed By: #### L 501.9310, L500.4050, L100.0500, L500.4100, L501.9985, L501.9520 #### [facility] [address] [place], [place], [id number] .Auto Diffon 07-10-2025 Basophil, Absolute 0.1 10 3/mcL Normal 0.0-0.3 [facility] Comment on above: Performed By: #### A DIFF, PBNP, TROPHS, CBC, GFR, MDW, ANEU, BMP #### [address] [address] Basophils/100 WBC (Bld) 1.1 % Normal 0.0-2.5 [facility] Comment on above: Performed By: #### A DIFF, PBNP, TROPHS, CBC, GFR, MDW, ANEU, BMP #### [address] [address] Eosinophil, Absolute 0.3 10 3/mcL Normal 0.0-0.7 [facility] Comment on above: Performed By: #### A DIFF, PBNP, TROPHS, CBC, GFR, MDW, ANEU, BMP #### [address] [address] Eosinophils/100 WBC (Bld) 3.2 % Normal 0.0-6.0 [facility] Comment on above: Performed By: #### A DIFF, PBNP, TROPHS, CBC, GFR, MDW, ANEU, BMP #### [address] [address] Lymphocyte, Absolute 2.6 10 3/mcL Normal 0.9-4.3 [facility] Comment on above: Performed By: #### A DIFF, PBNP, TROPHS, CBC, GFR, MDW, ANEU, BMP #### [address] [address] Lymphocytes/100 WBC (Bld) 31.2 % Normal 20.0-40.0 [facility] Comment on above: Performed By: #### A DIFF, PBNP, TROPHS, CBC, GFR, MDW, ANEU, BMP #### [address] [address] Monocyte, Absolute 1.2 10 3/mcL Normal 0.1-1.4 [facility] Comment on above: Performed By: #### A DIFF, PBNP, TROPHS, CBC, GFR, MDW, ANEU, BMP #### [address] [address] Monocytes/100 WBC (Bld) 13.9 % High 2.0-13.0 [facility] Comment on above: Performed By: #### A DIFF, PBNP, TROPHS, CBC, GFR, MDW, ANEU, BMP #### [address] [address] Neutrophils/100 WBC (Bld) 50.6 % Normal 50.0-75.0 [facility] Comment on above: Performed By: #### A DIFF, PBNP, TROPHS, CBC, GFR, MDW, ANEU, BMP #### [address] [place], [place] [address] .GFRon 07-10-2025 Estimated Glomerular Filtration Rate 71 ml/min/1.73sqm Normal [facility] Comment on above: Result Comment: Stages [...] TROPHS, CBC, GFR, MDW, ANEU, BMP #### [address] [address] .NEUABSon 07-10-2025 Neutrophil, Absolute 4.2 10 3/mcL Normal 2.3-8.1 [facility] Comment on above: Performed By: #### A DIFF, PBNP, TROPHS, CBC, GFR, MDW, ANEU, BMP #### [place] [id number] [place], [place] [address] CBCon 07-10-2025 Erythrocyte distribution width (RBC) [Ratio] 17.7 % High 11.5-15.5 [facility] Comment on above: Performed By: #### A DIFF, PBNP, TROPHS, CBC, GFR, MDW, ANEU, BMP #### [place] [place], [place] [address] Hematocrit (Bld) [Volume fraction] 35.3 % Normal 34.0-46.0 [facility] Comment on above: Performed By: #### A DIFF, PBNP, TROPHS, CBC, GFR, MDW, ANEU, BMP #### [address] [address] Hgb 11.4 G/dL Low 12.0-16.0 [facility] Comment on above: Performed By: #### A DIFF, PBNP, TROPHS, CBC, GFR, MDW, ANEU, BMP #### [place] [address] MCH (RBC) [Entitic mass] 29.5 pg Normal 27.0-33.0 [facility] Comment on above: Performed By: #### A DIFF, PBNP, TROPHS, CBC, GFR, MDW, ANEU, BMP #### [address] [address] MCHC 32.4 G/dL Normal 32.0-36.0 [facility] Comment on above: Performed By: #### A DIFF, PBNP, TROPHS, CBC, GFR, MDW, ANEU, BMP #### [address] [address] MCV (RBC) [Entitic vol] 91.1 fL Normal 80.0-99.0 [facility] Comment on above: Performed By: #### A DIFF, PBNP, TROPHS, CBC, GFR, MDW, ANEU, BMP #### [address] [address] Platelet 383 10 3/mcL Normal 150-450 [facility] Comment on above: Performed By: #### A DIFF, PBNP, TROPHS, CBC, GFR, MDW, ANEU, BMP #### [address] [address] Platelet mean volume (Bld) [Entitic vol] 8.4 fL Normal 6.6-10.5 [facility] Comment on above: Performed By: #### A DIFF, PBNP, TROPHS, CBC, GFR, MDW, ANEU, BMP #### [place] [address] RBC 3.87 10 6/mcL Low 4.10-5.30 [facility] Comment on above: Performed By: #### A DIFF, PBNP, TROPHS, CBC, GFR, MDW, ANEU, BMP #### [address] [address] WBC 8.3 10 3/mcL Normal 4.5-10.8 [facility] Comment on above: Performed By: #### A DIFF, PBNP, TROPHS, CBC, GFR, MDW, ANEU, BMP #### [address] [address] CMPon 07-10-2025 ALT [Catalytic activity/Vol] 13 U/L Low 14-59 [facility] Comment on above: Performed By: #### A DIFF, PBNP, TROPHS, CBC, GFR, MDW, ANEU, BMP #### [address] [address] Albumin Level 2.7 G/dL Low 3.4-4.8 [facility] Comment on above: Performed By: #### A DIFF, PBNP, TROPHS, CBC, GFR, MDW, ANEU, BMP #### [address] [address] Albumin/Globulin [Mass ratio] 0.8 {ratio} Low 1.1-2.5 [facility] Comment on above: Performed By: #### A DIFF, PBNP, TROPHS, CBC, GFR, MDW, ANEU, BMP #### [address] [address] ALP [Catalytic activity/Vol] 72 U/L Normal 40-135 [facility] Comment on above: Performed By: #### A DIFF, PBNP, TROPHS, CBC, GFR, MDW, ANEU, BMP #### [address] [address] AST [Catalytic activity/Vol] 15 U/L Normal 10-40 [facility] Comment on above: Performed By: #### A DIFF, PBNP, TROPHS, CBC, GFR, MDW, ANEU, BMP #### [address] [address] Bili Total 0.2 mg/dL Normal 0.2-1.0 [facility] Comment on above: Result Comment: Use of this assay is not recommended for patients undergoing treatment with eltrombopag due to the potential for falsely elevated results. Performed By: #### A DIFF, PBNP, TROPHS, CBC, GFR, MDW, ANEU, BMP #### [address] [address] BUN/Creatinine Ratio 26 ratio Normal 7-27 [facility] Comment on above: Performed By: #### A DIFF, PBNP, TROPHS, CBC, GFR, MDW, ANEU, BMP #### [place] [address] Calcium [Mass/Vol] 8.6 mg/dL Normal 8.4-10.2 [facility] Comment on above: Performed By: #### A DIFF, PBNP, TROPHS, CBC, GFR, MDW, ANEU, BMP #### [address] [address] Chloride [Moles/Vol] 107 mmol/L Normal 98-107 [facility] Comment on above: Performed By: #### A DIFF, PBNP, TROPHS, CBC, GFR, MDW, ANEU, BMP #### [address] [address] CO2 [Moles/Vol] 37 mmol/L High 23-31 [facility] Comment on above: Performed By: #### A DIFF, PBNP, TROPHS, CBC, GFR, MDW, ANEU, BMP #### [address] [address] Creatinine [Mass/Vol] 0.88 mg/dL Normal 0.51-0.95 [facility] Comment on above: Performed By: #### A DIFF, PBNP, TROPHS, CBC, GFR, MDW, ANEU, BMP #### [address] [address] Electrolyte Balance 0.0 mEq/L Low 4.0-15.0 [facility] Comment on above: Performed By: #### A DIFF, PBNP, TROPHS, CBC, GFR, MDW, ANEU, BMP #### [address] [address] Globulin 3.4 G/dL Normal 2.7-4.4 [facility] Comment on above: Performed By: #### A DIFF, PBNP, TROPHS, CBC, GFR, MDW, ANEU, BMP #### [address] [address] Glucose [Mass/Vol] 111 mg/dL High 83-110 [facility] Comment on above: Performed By: #### A DIFF, PBNP, TROPHS, CBC, GFR, MDW, ANEU, BMP #### [address] [address] Potassium [Moles/Vol] 4.4 mmol/L Normal 3.5-5.1 [facility] Comment on above: Performed By: #### A DIFF, PBNP, TROPHS, CBC, GFR, MDW, ANEU, BMP #### [address] [address] Sodium [Moles/Vol] 144 mmol/L Normal 136-145 [facility] Comment on above: Performed By: #### A DIFF, PBNP, TROPHS, CBC, GFR, MDW, ANEU, BMP #### [address] [address] Total Protein 6.1 G/dL Low 6.4-8.2 [facility] Comment on above: Performed By: #### A DIFF, PBNP, TROPHS, CBC, GFR, MDW, ANEU, BMP #### [address] [address] Urea nitrogen [Mass/Vol] 23 mg/dL High 7-18 [facility] Comment on above: Performed By: #### A DIFF, PBNP, TROPHS, CBC, GFR, MDW, ANEU, BMP #### [address] [place], [place] [address] LABORATORYOrdered By: SYSTEM SYSTEM on 07-10-2025 Albumin [...] 07-10-2025 Magnesium [Mass/Vol] 2.0 mg/dL Normal 1.8-2.4 [facility] Comment on above: Performed By: #### A DIFF, PBNP, TROPHS, CBC, GFR, MDW, ANEU, BMP #### [address] [address] .Auto Diffon 07-09-2025 Basophil, Absolute 0.1 10 3/mcL Normal 0.0-0.3 [facility] Comment on above: Performed By: #### M RSAPCR #### [address] [address] #### CVFLURV #### [address] [address] Basophils/100 WBC (Bld) 0.9 % Normal 0.0-2.5 [facility] Comment on above: Performed By: #### M RSAPCR #### [address] [address] #### CVFLURV #### [address] [address] Eosinophil, Absolute 0.1 10 3/mcL Normal 0.0-0.7 [facility] Comment on above: Performed By: #### M RSAPCR #### [place] [address] #### CVFLURV #### [address] [address] Eosinophils/100 WBC (Bld) 1.3 % Normal 0.0-6.0 [facility] Comment on above: Performed By: #### M RSAPCR #### [place] [address] #### CVFLURV #### [address] [address] Lymphocyte, Absolute 1.3 10 3/mcL Normal 0.9-4.3 [facility] Comment on above: Performed By: #### M RSAPCR #### [place] [address] #### CVFLURV #### [address] [address] Lymphocytes/100 WBC (Bld) 12.9 % Low 20.0-40.0 [facility] Comment on above: Performed By: #### M RSAPCR #### [place] [address] #### CVFLURV #### [address] [address] Monocyte, Absolute 1.1 10 3/mcL Normal 0.1-1.4 [facility] Comment on above: Performed By: #### M RSAPCR #### [place] [address] #### CVFLURV #### [address] [address] Monocytes/100 WBC (Bld) 11.1 % Normal 2.0-13.0 [facility] Comment on above: Performed By: #### M RSAPCR #### [place] [address] #### CVFLURV #### [address] [address] Neutrophils/100 WBC (Bld) 73.8 % Normal 50.0-75.0 [facility] Comment on above: Performed By: #### M RSAPCR #### [place] [address] #### CVFLURV #### [address] [address] .GFRon 07-09-2025 Estimated Glomerular Filtration Rate 93 ml/min/1.73sqm Normal [facility] Comment on above: Result Comment: Stages [...] results. Performed By: #### M RSAPCR #### [place] [address] #### CVFLURV #### [address] [address] .MDWon 07-09-2025 Monocyte Distribution Width 17.29 Normal 0.00-20.00 [facility] Comment on above: Result Comment: For ED adult patients suspected of sepsis, MDW<=20.0 does not rule out sepsis or risk of sepsis Performed By: #### M RSAPCR #### [place] [address] #### CVFLURV #### [address] [address] .NEUABSon 07-09-2025 Neutrophil, Absolute 7.3 10 3/mcL Normal 2.3-8.1 [facility] Comment on above: Performed By: #### M RSAPCR #### [place] [address] #### CVFLURV #### [address] [address] BMPon 07-09-2025 BUN/Creatinine Ratio 26 ratio Normal 7-27 [facility] Comment on above: Performed By: #### M RSAPCR #### [place] [address] #### CVFLURV #### [address] [address] Calcium [Mass/Vol] 8.7 mg/dL Normal 8.4-10.2 [facility] Comment on above: Performed By: #### M RSAPCR #### [place] [address] #### CVFLURV #### [place] [address] Chloride [Moles/Vol] 106 mmol/L Normal 98-107 [facility] Comment on above: Performed By: #### M RSAPCR #### [place] [address] #### CVFLURV #### [address] [address] CO2 [Moles/Vol] 33 mmol/L High 23-31 [facility] Comment on above: Performed By: #### M RSAPCR #### [place] [address] #### CVFLURV #### [address] [address] Creatinine [Mass/Vol] 0.70 mg/dL Normal 0.51-0.95 [facility] Comment on above: Performed By: #### M RSAPCR #### [place] [address] #### CVFLURV #### [address] [address] Electrolyte Balance 1.0 mEq/L Low 4.0-15.0 [facility] Comment on above: Performed By: #### M RSAPCR #### [place] [address] #### CVFLURV #### [address] [address] Glucose [Mass/Vol] 118 mg/dL High 83-110 [facility] Comment on above: Performed By: #### M RSAPCR #### [place] [address] #### CVFLURV #### [address] [address] Potassium [Moles/Vol] 3.8 mmol/L Normal 3.5-5.1 [facility] Comment on above: Performed By: #### M RSAPCR #### [place] [address] #### CVFLURV #### [address] [address] Sodium [Moles/Vol] 140 mmol/L Normal 136-145 [facility] Comment on above: Performed By: #### M RSAPCR #### [place] [address] #### CVFLURV #### [address] [address] Urea nitrogen [Mass/Vol] 18 mg/dL Normal 7-18 [facility] Comment on above: Performed By: #### M RSAPCR #### [place] [address] #### CVFLURV #### [address] [address] CBCon 07-09-2025 Erythrocyte distribution width (RBC) [Ratio] 17.8 % High 11.5-15.5 [facility] Comment on above: Performed By: #### M RSAPCR #### [place] [address] #### CVFLURV #### [address] [address] Hematocrit (Bld) [Volume fraction] 36.6 % Normal 34.0-46.0 [facility] Comment on above: Performed By: #### M RSAPCR #### [place] [address] #### CVFLURV #### [address] [address] Hgb 11.9 G/dL Low 12.0-16.0 [facility] Comment on above: Performed By: #### M RSAPCR #### [place] [address] #### CVFLURV #### [address] [address] MCH (RBC) [Entitic mass] 29.5 pg Normal 27.0-33.0 [facility] Comment on above: Performed By: #### M RSAPCR #### [place] [address] #### CVFLURV #### [place] [address] MCHC 32.6 G/dL Normal 32.0-36.0 [facility] Comment on above: Performed By: #### M RSAPCR #### [place] [address] #### CVFLURV #### [address] [address] MCV (RBC) [Entitic vol] 90.5 fL Normal 80.0-99.0 [facility] Comment on above: Performed By: #### M RSAPCR #### [place] [address] #### CVFLURV #### [address] [address] Platelet 406 10 3/mcL Normal 150-450 [facility] Comment on above: Performed By: #### M RSAPCR #### [place] [address] #### CVFLURV #### [place] [address] Platelet mean volume (Bld) [Entitic vol] 7.7 fL Normal 6.6-10.5 [facility] Comment on above: Performed By: #### M RSAPCR #### [place] [address] #### CVFLURV #### [place] [address] RBC 4.04 10 6/mcL Low 4.10-5.30 [facility] Comment on above: Performed By: #### M RSAPCR #### [place] [address] #### CVFLURV #### [place] [address] WBC 9.9 10 3/mcL Normal 4.5-10.8 [facility] Comment on above: Performed By: #### M RSAPCR #### [place] [address] #### CVFLURV #### [place] [address] CVFLURVon 07-09-2025 FLU A PCR Negative Normal Negative [facility] Comment on above: Performed By: #### C VFLURV #### [place] [address] FLU B PCR Negative Normal Negative [facility] Comment on above: Performed By: #### C VFLURV #### [place] [address] RSV PCR Negative Normal Negative [facility] Comment on above: Performed By: #### C VFLURV #### [place] [address] SARS-CoV-2 (COVID-19) RNA IVANA+probe Ql (Unsp spec) Negative Normal Negative [facility] Comment on above: Result Comment: Resu [...] Performed By: #### C VFLURV #### [place] [address] LABORATORYOrdered By: SYSTEM SYSTEM on 07-09-2025 Basophils [...] ng/L Male: 0-76 ng/L Testing performed on [employer] using a homogeneous sandwich chemiluminescent immunoassay based on [employer] technology. Urea nitrogen [Mass/Vol] 18 mg/dL Normal [...] Sensitivity Troponin I 18 ng/L Normal 0-51 [facility] Comment on above: Result Comment: High Sensitive Troponin I Reference Ranges: Female: 0-51 ng/L Male: 0-76 ng/L Testing performed on [employer] using a homogeneous sandwich chemiluminescent immunoassay based on [employer] technology. Performed By: #### M RSAPCR #### [address] [address] #### CVFLURV #### [facility] [address] [place], [place] [address] XR KNEE THREE VIEWS RIGHTon 07-09-2025 XR [...] 6:11:06 AM Ordering Provider: BRIAN TRINIDAD Normal [facility] .Auto Diffon 06-15-2025 Basophil, Absolute 0.1 10 3/mcL Normal 0.0-0.3 [facility] Comment on above: Performed By: #### M G, CBC, GFR, ADIFF, BMP, ANEU #### [address] [address] Basophils/100 WBC (Bld) 1.4 % Normal 0.0-2.5 [facility] Comment on above: Performed By: #### M G, CBC, GFR, ADIFF, BMP, ANEU #### [address] [address] Eosinophil, Absolute 0.2 10 3/mcL Normal 0.0-0.7 [facility] Comment on above: Performed By: #### M G, CBC, GFR, ADIFF, BMP, ANEU #### [address] [address] Eosinophils/100 WBC (Bld) 3.8 % Normal 0.0-6.0 [facility] Comment on above: Performed By: #### M G, CBC, GFR, ADIFF, BMP, ANEU #### [address] [address] Lymphocyte, Absolute 2.2 10 3/mcL Normal 0.9-4.3 [facility] Comment on above: Performed By: #### M G, CBC, GFR, ADIFF, BMP, ANEU #### [address] [address] Lymphocytes/100 WBC (Bld) 39.1 % Normal 20.0-40.0 [facility] Comment on above: Performed By: #### M G, CBC, GFR, ADIFF, BMP, ANEU #### [address] [address] Monocyte, Absolute 0.8 10 3/mcL Normal 0.1-1.4 [facility] Comment on above: Performed By: #### M G, CBC, GFR, ADIFF, BMP, ANEU #### [address] [address] Monocytes/100 WBC (Bld) 14.1 % High 2.0-13.0 [facility] Comment on above: Performed By: #### M G, CBC, GFR, ADIFF, BMP, ANEU #### [address] [address] Neutrophils/100 WBC (Bld) 41.6 % Low 50.0-75.0 [facility] Comment on above: Performed By: #### M G, CBC, GFR, ADIFF, BMP, ANEU #### [address] [address] .GFRon 06-15-2025 Estimated Glomerular Filtration Rate 69 ml/min/1.73sqm Normal [facility] Comment on above: Result Comment: Stages [...] G, CBC, GFR, ADIFF, BMP, ANEU #### [place] [address] .NEUABSon 06-15-2025 Neutrophil, Absolute 2.3 10 3/mcL Normal 2.3-8.1 [facility] Comment on above: Performed By: #### M G, CBC, GFR, ADIFF, BMP, ANEU #### [place] [id number] BMPon 06-15-2025 BUN/Creatinine Ratio 27.8 ratio High 10.0-22.0 [facility] Comment on above: Performed By: #### M G, CBC, GFR, ADIFF, BMP, ANEU #### [place] [address] Calcium [Mass/Vol] 8.6 mg/dL Low 8.7-10.4 [facility] Comment on above: Performed By: #### M G, CBC, GFR, ADIFF, BMP, ANEU #### [place] [address] Chloride [Moles/Vol] 107 mmol/L Normal 98-110 [facility] Comment on above: Performed By: #### M G, CBC, GFR, ADIFF, BMP, ANEU #### [address] [address] CO2 [Moles/Vol] 34 mmol/L High 22-32 [facility] Comment on above: Performed By: #### M G, CBC, GFR, ADIFF, BMP, ANEU #### [address] [address] Creatinine [Mass/Vol] 0.90 mg/dL Normal 0.50-1.20 [facility] Comment on above: Result Comment: Test ing performed on Interrad Medical analyzer using enzymatic creatinine methodology. Performed By: #### M G, CBC, GFR, ADIFF, BMP, ANEU #### [address] [address] Electrolyte Balance 5.0 mEq/L Normal 4.0-15.0 [facility] Comment on above: Performed By: #### M G, CBC, GFR, ADIFF, BMP, ANEU #### [address] [address] Glucose [Mass/Vol] 126 mg/dL High 82-115 [facility] Comment on above: Performed By: #### M G, CBC, GFR, ADIFF, BMP, ANEU #### [address] [address] Potassium [Moles/Vol] 4.1 mmol/L Normal 3.5-5.0 [facility] Comment on above: Performed By: #### M G, CBC, GFR, ADIFF, BMP, ANEU #### [address] [address] Sodium [Moles/Vol] 146 mmol/L High 136-145 [facility] Comment on above: Performed By: #### M G, CBC, GFR, ADIFF, BMP, ANEU #### [address] [address] Urea nitrogen [Mass/Vol] 25.0 mg/dL High 8.0-22.0 [facility] Comment on above: Performed By: #### M G, CBC, GFR, ADIFF, BMP, ANEU #### [address] [address] CBCon 06-15-2025 Erythrocyte distribution width (RBC) [Ratio] 17.8 % High 11.5-15.5 [facility] Comment on above: Performed By: #### M G, CBC, GFR, ADIFF, BMP, ANEU #### [place] [address] Hematocrit (Bld) [Volume fraction] 34.8 % Normal 34.0-46.0 [facility] Comment on above: Performed By: #### M G, CBC, GFR, ADIFF, BMP, ANEU #### [place] [address] Hgb 11.4 G/dL Low 12.0-16.0 [facility] Comment on above: Performed By: #### M G, CBC, GFR, ADIFF, BMP, ANEU #### [place] [address] MCH (RBC) [Entitic mass] 30.1 pg Normal 27.0-33.0 [facility] Comment on above: Performed By: #### M G, CBC, GFR, ADIFF, BMP, ANEU #### [place] [address] MCHC 32.7 G/dL Normal 32.0-36.0 [facility] Comment on above: Performed By: #### M G, CBC, GFR, ADIFF, BMP, ANEU #### [place] [address] MCV (RBC) [Entitic vol] 91.8 fL Normal 80.0-99.0 [facility] Comment on above: Performed By: #### M G, CBC, GFR, ADIFF, BMP, ANEU #### [place] [address] Platelet 346 10 3/mcL Normal 150-450 [facility] Comment on above: Performed By: #### M G, CBC, GFR, ADIFF, BMP, ANEU #### [place] [address] Platelet mean volume (Bld) [Entitic vol] 8.7 fL Normal 6.6-10.5 [facility] Comment on above: Performed By: #### M G, CBC, GFR, ADIFF, BMP, ANEU #### [place] [id number] [place] [address] RBC 3.79 10 6/mcL Low 4.10-5.30 [facility] Comment on above: Performed By: #### M G, CBC, GFR, ADIFF, BMP, ANEU #### [place] [id number] [place] [address] WBC 5.6 10 3/mcL Normal 4.5-10.8 [facility] Comment on above: Performed By: #### M G, CBC, GFR, ADIFF, BMP, ANEU #### [address] [address] LABORATORYOrdered By: SYSTEM SYSTEM on 06-15-2025 Basophils [...] above: Interpretive Data: T esting performed on [employer] Medical analyzer using enzymatic creatinine methodology. Electrolyte Balance [...] 06-15-2025 Magnesium [Mass/Vol] 1.8 mg/dL Normal 1.6-2.4 [facility] Comment on above: Performed By: #### M G, CBC, GFR, ADIFF, BMP, ANEU #### [address] [address] .GFRon 06-14-2025 Estimated Glomerular Filtration Rate 62 ml/min/1.73sqm Normal [facility] Comment on above: Result Comment: Stages [...] results. Performed By: #### T ARIELLE #### [address] [address] BMPon 06-14-2025 BUN/Creatinine Ratio 26.5 ratio High 10.0-22.0 [facility] Comment on above: Performed By: #### T GOMEZ #### [address] [address] Calcium [Mass/Vol] 8.1 mg/dL Low 8.7-10.4 [facility] Comment on above: Performed By: #### T GOMEZ #### [address] [address] Chloride [Moles/Vol] 104 mmol/L Normal 98-110 [facility] Comment on above: Performed By: #### T GOMEZ #### [address] [address] CO2 [Moles/Vol] 33 mmol/L High 22-32 [facility] Comment on above: Performed By: #### T GOMEZ #### [place] [id number] Creatinine [Mass/Vol] 0.98 mg/dL Normal 0.50-1.20 [facility] Comment on above: Result Comment: Test ing performed on [employer] Medical analyzer using enzymatic creatinine methodology. Performed By: #### T GOMEZ #### [address] [address] Electrolyte Balance 8.0 mEq/L Normal 4.0-15.0 [facility] Comment on above: Performed By: #### T GOMEZ #### [address] [address] Glucose [Mass/Vol] 118 mg/dL High 82-115 [facility] Comment on above: Performed By: #### T GOMEZ #### [place] [id number] Potassium [Moles/Vol] 4.2 mmol/L Normal 3.5-5.0 [facility] Comment on above: Result Comment: Spec imen slightly hemolyzed. Performed By: #### T GOMEZ #### [place] [id number] Sodium [Moles/Vol] 145 mmol/L Normal 136-145 [facility] Comment on above: Performed By: #### T GOMEZ #### [place] [id number] Urea nitrogen [Mass/Vol] 26.0 mg/dL High 8.0-22.0 [facility] Comment on above: Performed By: #### T [facility] #### [place] [address] LABORATORYOrdered By: SYSTEM SYSTEM on 06-14-2025 Calcium [...] above: Interpretive Data: T esting performed on [employer] Medical analyzer using enzymatic creatinine methodology. Electrolyte Balance [...] 06-14-2025 Magnesium [Mass/Vol] 1.9 mg/dL Normal 1.6-2.4 [facility] Comment on above: Performed By: #### T GOMEZ #### [address] [address] XR CHEST 1 VIEWon 06-14-2025 XR CHEST [...] 06/14/2025 10:24:03 AM Ordering Provider: JOAN Rivero [facility] .Auto Diffon 06-13-2025 Basophil, Absolute 0.0 10 3/mcL Normal 0.0-0.3 [facility] Comment on above: Performed By: #### T GOMEZ #### [address] [address] Basophils/100 WBC (Bld) 0.4 % Normal 0.0-2.5 [facility] Comment on above: Performed By: #### T GOMEZ #### [address] [address] Eosinophil, Absolute 0.0 10 3/mcL Normal 0.0-0.7 [facility] Comment on above: Performed By: #### T GOMEZ #### [address] [address] Eosinophils/100 WBC (Bld) 0.0 % Normal 0.0-6.0 [facility] Comment on above: Performed By: #### T GOMEZ #### [facility] [address] [place] [id number] Lymphocyte, Absolute 0.4 10 3/mcL Low 0.9-4.3 [facility] Comment on above: Performed By: #### T GOMEZ #### [address] [address] Lymphocytes/100 WBC (Bld) 12.3 % Low 20.0-40.0 [facility] Comment on above: Performed By: #### T GOMEZ #### [address] [address] Monocyte, Absolute 0.2 10 3/mcL Normal 0.1-1.4 [facility] Comment on above: Performed By: #### T GOMEZ #### [address] [address] Monocytes/100 WBC (Bld) 6.6 % Normal 2.0-13.0 [facility] Comment on above: Performed By: #### T GOMEZ #### [address] [address] [address] Neutrophils/100 WBC (Bld) 80.7 % High 50.0-75.0 [facility] Comment on above: Performed By: #### T GOMEZ #### [address] [address] .GFRon 06-13-2025 Estimated Glomerular Filtration Rate 68 ml/min/1.73sqm Normal [facility] Comment on above: Result Comment: Stages [...] results. Performed By: #### T GOMEZ #### [address] [address] .NEUABSon 06-13-2025 Neutrophil, Absolute 2.6 10 3/mcL Normal 2.3-8.1 [facility] Comment on above: Performed By: #### T GOMEZ #### [address] [address] BMPon 06-13-2025 BUN/Creatinine Ratio 18.7 ratio Normal 10.0-22.0 [facility] Comment on above: Performed By: #### T GOMEZ #### [address] [address] Calcium [Mass/Vol] 8.3 mg/dL Low 8.7-10.4 [facility] Comment on above: Performed By: #### T GOMEZ #### [address] [address] Chloride [Moles/Vol] 101 mmol/L Normal 98-110 [facility] Comment on above: Performed By: #### T GOMEZ #### [address] [address] CO2 [Moles/Vol] 34 mmol/L High 22-32 [facility] Comment on above: Performed By: #### T GOMEZ #### [address] [address] Creatinine [Mass/Vol] 0.91 mg/dL Normal 0.50-1.20 [facility] Comment on above: Result Comment: Test ing performed on [employer] Medical analyzer using enzymatic creatinine methodology. Performed By: #### T GOMEZ #### [address] [address] Electrolyte Balance 9.0 mEq/L Normal 4.0-15.0 [facility] Comment on above: Performed By: #### T GOMEZ #### [place] [id number] Glucose [Mass/Vol] 125 mg/dL High 82-115 [facility] Comment on above: Performed By: #### T GOMEZ #### [place] [id number] Potassium [Moles/Vol] 3.6 mmol/L Normal 3.5-5.0 [facility] Comment on above: Performed By: #### T GOMEZ #### [place] [id number] Sodium [Moles/Vol] 144 mmol/L Normal 136-145 [facility] Comment on above: Performed By: #### T GOMEZ #### [place] [id number] Urea nitrogen [Mass/Vol] 17.0 mg/dL Normal 8.0-22.0 [facility] Comment on above: Performed By: #### T GOMEZ #### [place] [address] CBCon 06-13-2025 Erythrocyte distribution width (RBC) [Ratio] 17.4 % High 11.5-15.5 [facility] Comment on above: Performed By: #### T GOMEZ #### [place] [id number] Hematocrit (Bld) [Volume fraction] 37.9 % Normal 34.0-46.0 [facility] Comment on above: Performed By: #### T GOMEZ #### [place] [address] Hgb 12.3 G/dL Normal 12.0-16.0 [facility] Comment on above: Performed By: #### T GOMEZ #### [place] [id number] MCH (RBC) [Entitic mass] 29.3 pg Normal 27.0-33.0 [facility] Comment on above: Performed By: #### T GOMEZ #### [place] [id number] MCHC 32.5 G/dL Normal 32.0-36.0 [facility] Comment on above: Performed By: #### T GOMEZ #### [address] [address] MCV (RBC) [Entitic vol] 90.3 fL Normal 80.0-99.0 [facility] Comment on above: Performed By: #### T GOMEZ #### [place] [id number] Platelet 452 10 3/mcL High 150-450 [facility] Comment on above: Performed By: #### T GOMEZ #### [place] [address] Platelet mean volume (Bld) [Entitic vol] 8.7 fL Normal 6.6-10.5 [facility] Comment on above: Performed By: #### T GOMEZ #### [place] [address] RBC 4.20 10 6/mcL Normal 4.10-5.30 [facility] Comment on above: Performed By: #### T GOMEZ #### [place] [address] WBC 3.2 10 3/mcL Low 4.5-10.8 [facility] Comment on above: Performed By: #### T GOMEZ #### [place] [address] LABORATORYOrdered By: SYSTEM SYSTEM on 06-13-2025 Troponin I.cardiac DL <= 0.01 ng/mL [Mass/Vol] 17 ng/L Normal 0 - 34 ng/L ADM SS Comment on above: Interpretive Data: High Sensitive Troponin I Reference Ranges: Female: 0-34 ng/L Male: 0-54 ng/L Testing performed on [employer] analyzer using direct chemiluminescent technology. Basophils (Bld) [...] above: Interpretive Data: T esting performed on [employer] Medical analyzer using enzymatic creatinine methodology. Electrolyte Balance [...] 06-13-2025 Magnesium [Mass/Vol] 1.8 mg/dL Normal 1.6-2.4 [facility] Comment on above: Performed By: #### T [facility] #### [address] 06-13-2025 High Sensitivity Troponin I 17 ng/L Normal 0-34 [facility] Comment on above: Result Comment: High Sensitive Troponin I Reference Ranges: Female: 0-34 ng/L Male: 0-54 ng/L Testing performed on [employer] IM analyzer using direct chemiluminescent technology. Performed By: #### T [facility] #### [address] [address] .Auto Diffon 06-12-2025 Basophil, Absolute 0.1 10 3/mcL Normal 0.0-0.3 [facility] Comment on above: Performed By: #### A DIFF, PBNP, TROPHS, CBC, GFR, MDW, ANEU, BMP #### [address] [address] Basophils/100 WBC (Bld) 1.0 % Normal 0.0-2.5 [facility] Comment on above: Performed By: #### A DIFF, PBNP, TROPHS, CBC, GFR, MDW, ANEU, BMP #### [address] [address] Eosinophil, Absolute 0.1 10 3/mcL Normal 0.0-0.7 [facility] Comment on above: Performed By: #### A DIFF, PBNP, TROPHS, CBC, GFR, MDW, ANEU, BMP #### [address] [address] Eosinophils/100 WBC (Bld) 1.3 % Normal 0.0-6.0 [facility] Comment on above: Performed By: #### A DIFF, PBNP, TROPHS, CBC, GFR, MDW, ANEU, BMP #### [address] [address] Lymphocyte, Absolute 2.0 10 3/mcL Normal 0.9-4.3 [facility] Comment on above: Performed By: #### A DIFF, PBNP, TROPHS, CBC, GFR, MDW, ANEU, BMP #### [address] [address] Lymphocytes/100 WBC (Bld) 25.0 % Normal 20.0-40.0 [facility] Comment on above: Performed By: #### A DIFF, PBNP, TROPHS, CBC, GFR, MDW, ANEU, BMP #### [address] [place], [place] [address] Monocyte, Absolute 0.9 10 3/mcL Normal 0.1-1.4 [facility] Comment on above: Performed By: #### A DIFF, PBNP, TROPHS, CBC, GFR, MDW, ANEU, BMP #### [address] [address] Monocytes/100 WBC (Bld) 11.3 % Normal 2.0-13.0 [facility] Comment on above: Performed By: #### A DIFF, PBNP, TROPHS, CBC, GFR, MDW, ANEU, BMP #### [address] [address] Neutrophils/100 WBC (Bld) 61.4 % Normal 50.0-75.0 [facility] Comment on above: Performed By: #### A DIFF, PBNP, TROPHS, CBC, GFR, MDW, ANEU, BMP #### [address] [address] .GFRon 06-12-2025 Estimated Glomerular Filtration Rate 87 [...] the eGFR results. Performed By: #### T [facility] #### [facility] [address] [place] [address] Estimated Glomerular Filtration Rate 79 ml/min/1.73sqm Normal [facility] Comment on above: Result Comment: Stages [...] TROPHS, CBC, GFR, MDW, ANEU, BMP #### [address] [address] .MDWon 06-12-2025 Monocyte Distribution Width 17.54 Normal 0.00-20.00 [facility] Comment on above: Result Comment: For ED adult patients suspected of sepsis, MDW<=20.0 does not rule out sepsis or risk of sepsis Performed By: #### A DIFF, PBNP, TROPHS, CBC, GFR, MDW, ANEU, BMP #### [address] [address] .NEUABSon 06-12-2025 Neutrophil, Absolute 5.0 10 3/mcL Normal 2.3-8.1 [facility] Comment on above: Performed By: #### A DIFF, PBNP, TROPHS, CBC, GFR, MDW, ANEU, BMP #### [address] [address] BMPon 06-12-2025 BUN/Creatinine Ratio 16.2 ratio Normal 10.0-22.0 [facility] Comment on above: Performed By: #### T ARIELLE #### [address] [address] Calcium [Mass/Vol] 8.6 mg/dL Low 8.7-10.4 [facility] Comment on above: Performed By: #### T ARIELLE #### [address] [address] Chloride [Moles/Vol] 103 mmol/L Normal 98-110 [facility] Comment on above: Performed By: #### T GOMEZ #### [address] [address] CO2 [Moles/Vol] 30 mmol/L Normal 22-32 [facility] Comment on above: Performed By: #### T GOMEZ #### [address] [address] Creatinine [Mass/Vol] 0.74 mg/dL Normal 0.50-1.20 [facility] Comment on above: Result Comment: Test ing performed on Inter[employer] Medical analyzer using enzymatic creatinine methodology. Performed By: #### T GOMEZ #### [place] [id number] Electrolyte Balance 10.0 mEq/L Normal 4.0-15.0 [facility] Comment on above: Performed By: #### T GOMEZ #### [place] [id number] Glucose [Mass/Vol] 124 mg/dL High 82-115 [facility] Comment on above: Performed By: #### T GOMEZ #### [place] [id number] Potassium [Moles/Vol] 3.8 mmol/L Normal 3.5-5.0 [facility] Comment on above: Performed By: #### T GOMEZ #### [place] [id number] Sodium [Moles/Vol] 143 mmol/L Normal 136-145 [facility] Comment on above: Performed By: #### T GOMEZ #### [place] [id number] Urea nitrogen [Mass/Vol] 12.0 mg/dL Normal 8.0-22.0 [facility] Comment on above: Performed By: #### T GOMEZ #### [address] [address] CBCon 06-12-2025 Erythrocyte distribution width (RBC) [Ratio] 18.1 % High 11.5-15.5 [facility] Comment on above: Performed By: #### A DIFF, PBNP, TROPHS, CBC, GFR, MDW, ANEU, BMP #### [address] [address] Hematocrit (Bld) [Volume fraction] 44.2 % Normal 34.0-46.0 [facility] Comment on above: Performed By: #### A DIFF, PBNP, TROPHS, CBC, GFR, MDW, ANEU, BMP #### [place] [address] [place], [place] [address] Hgb 13.8 G/dL Normal 12.0-16.0 [facility] Comment on above: Performed By: #### A DIFF, PBNP, TROPHS, CBC, GFR, MDW, ANEU, BMP #### [address] [address] MCH (RBC) [Entitic mass] 29.3 pg Normal 27.0-33.0 [facility] Comment on above: Performed By: #### A DIFF, PBNP, TROPHS, CBC, GFR, MDW, ANEU, BMP #### [address] [address] MCHC 31.2 G/dL Low 32.0-36.0 [facility] Comment on above: Performed By: #### A DIFF, PBNP, TROPHS, CBC, GFR, MDW, ANEU, BMP #### [address] [address] MCV (RBC) [Entitic vol] 93.7 fL Normal 80.0-99.0 [facility] Comment on above: Performed By: #### A DIFF, PBNP, TROPHS, CBC, GFR, MDW, ANEU, BMP #### [address] [address] Platelet 455 10 3/mcL High 150-450 [facility] Comment on above: Performed By: #### A DIFF, PBNP, TROPHS, CBC, GFR, MDW, ANEU, BMP #### [address] [address] Platelet mean volume (Bld) [Entitic vol] 8.3 fL Normal 6.6-10.5 [facility] Comment on above: Performed By: #### A DIFF, PBNP, TROPHS, CBC, GFR, MDW, ANEU, BMP #### [address] [address] RBC 4.71 10 6/mcL Normal 4.10-5.30 [facility] Comment on above: Performed By: #### A DIFF, PBNP, TROPHS, CBC, GFR, MDW, ANEU, BMP #### [address] [address] WBC 8.2 10 3/mcL Normal 4.5-10.8 [facility] Comment on above: Performed By: #### A DIFF, PBNP, TROPHS, CBC, GFR, MDW, ANEU, BMP #### [address] [address] CMPon 06-12-2025 Albumin Level 3.1 G/dL Low 3.4-4.8 [facility] Comment on above: Performed By: #### A DIFF, PBNP, TROPHS, CBC, GFR, MDW, ANEU, BMP #### [address] [address] Albumin/Globulin [Mass ratio] 0.8 {ratio} Low 1.1-2.5 [facility] Comment on above: Performed By: #### A DIFF, PBNP, TROPHS, CBC, GFR, MDW, ANEU, BMP #### [address] [address] ALP [Catalytic activity/Vol] 108 U/L Normal 40-135 [facility] Comment on above: Performed By: #### A DIFF, PBNP, TROPHS, CBC, GFR, MDW, ANEU, BMP #### [address] [address] ALT [Catalytic activity/Vol] 21 U/L Normal 14-59 [facility] Comment on above: Performed By: #### A DIFF, PBNP, TROPHS, CBC, GFR, MDW, ANEU, BMP #### [address] [address] AST [Catalytic activity/Vol] 32 U/L Normal 10-40 [facility] Comment on above: Performed By: #### A DIFF, PBNP, TROPHS, CBC, GFR, MDW, ANEU, BMP #### [address] [address] Bili Total 0.4 mg/dL Normal 0.2-1.0 [facility] Comment on above: Result Comment: Use of this assay is not recommended for patients undergoing treatment with eltrombopag due to the potential for falsely elevated results. Performed By: #### A DIFF, PBNP, TROPHS, CBC, GFR, MDW, ANEU, BMP #### [place] [address] BUN/Creatinine Ratio 16 ratio Normal 7-27 [facility] Comment on above: Performed By: #### A DIFF, PBNP, TROPHS, CBC, GFR, MDW, ANEU, BMP #### [address] [address] Calcium [Mass/Vol] 8.9 mg/dL Normal 8.4-10.2 [facility] Comment on above: Performed By: #### A DIFF, PBNP, TROPHS, CBC, GFR, MDW, ANEU, BMP #### [address] [address] Chloride [Moles/Vol] 106 mmol/L Normal 98-107 [facility] Comment on above: Performed By: #### A DIFF, PBNP, TROPHS, CBC, GFR, MDW, ANEU, BMP #### [address] [address] CO2 [Moles/Vol] 28 mmol/L Normal 23-31 [facility] Comment on above: Performed By: #### A DIFF, PBNP, TROPHS, CBC, GFR, MDW, ANEU, BMP #### [address] [address] Creatinine [Mass/Vol] 0.80 mg/dL Normal 0.51-0.95 [facility] Comment on above: Performed By: #### A DIFF, PBNP, TROPHS, CBC, GFR, MDW, ANEU, BMP #### [address] [address] Electrolyte Balance 7.0 mEq/L Normal 4.0-15.0 [facility] Comment on above: Performed By: #### A DIFF, PBNP, TROPHS, CBC, GFR, MDW, ANEU, BMP #### [address] [address] Globulin 4.1 G/dL Normal 2.7-4.4 [facility] Comment on above: Performed By: #### A DIFF, PBNP, TROPHS, CBC, GFR, MDW, ANEU, BMP #### [address] [address] Glucose [Mass/Vol] 183 mg/dL High 83-110 [facility] Comment on above: Performed By: #### A DIFF, PBNP, TROPHS, CBC, GFR, MDW, ANEU, BMP #### [address] [address] Potassium [Moles/Vol] 5.1 mmol/L Normal 3.5-5.1 [facility] Comment on above: Performed By: #### A DIFF, PBNP, TROPHS, CBC, GFR, MDW, ANEU, BMP #### [address] [address] Sodium [Moles/Vol] 141 mmol/L Normal 136-145 [facility] Comment on above: Performed By: #### A DIFF, PBNP, TROPHS, CBC, GFR, MDW, ANEU, BMP #### [address] [address] Total Protein 7.2 G/dL Normal 6.4-8.2 [facility] Comment on above: Performed By: #### A DIFF, PBNP, TROPHS, CBC, GFR, MDW, ANEU, BMP #### [address] [address] Urea nitrogen [Mass/Vol] 13 mg/dL Normal 7-18 [facility] Comment on above: Performed By: #### A DIFF, PBNP, TROPHS, CBC, GFR, MDW, ANEU, BMP #### [address] [address] CVFLURVon 06-12-2025 FLU A PCR Negative Normal Negative [facility] Comment on above: Performed By: #### A DIFF, PBNP, TROPHS, CBC, GFR, MDW, ANEU, BMP #### [address] [address] FLU B PCR Negative Normal Negative [facility] Comment on above: Performed By: #### A DIFF, PBNP, TROPHS, CBC, GFR, MDW, ANEU, BMP #### [address] [address] RSV PCR Negative Normal Negative [facility] Comment on above: Performed By: #### A DIFF, PBNP, TROPHS, CBC, GFR, MDW, ANEU, BMP #### [address] [address] SARS-CoV-2 (COVID-19) RNA IVANA+probe Ql (Unsp spec) Negative Normal Negative [facility] Comment on above: Result Comment: Resu [...] TROPHS, CBC, GFR, MDW, ANEU, BMP #### [place] [address] [place], [place] [address] LABORATORYOrdered By: SYSTEM SYSTEM on 06-12-2025 Troponin I.cardiac DL <= 0.01 ng/mL [Mass/Vol] 20 ng/L Normal 0 - 34 ng/L AH ADM SS Comment on above: Interpretive Data: High Sensitive Troponin I Reference Ranges: Female: 0-34 ng/L Male: 0-54 ng/L Testing performed on [employer] IM analyzer using direct chemiluminescent technology. Natriuretic peptide.B prohormone N-Terminal IA [Mass/Vol] 8817 pg/mL High 0 - 900 pg/mL ADM SS Troponin I.cardiac DL <= 0.01 ng/mL [Mass/Vol] 22 ng/L Normal 0 - 34 ng/L AH ADM SS Comment on above: Interpretive Data: High Sensitive Troponin I Reference Ranges: Female: 0-34 ng/L Male: 0-54 ng/L Testing performed on [employer] IM analyzer using direct chemiluminescent technology. Troponin I.cardiac DL <= 0.01 ng/mL [Mass/Vol] 35 ng/L Normal 0 - 51 ng/L AO ADM SS Comment on above: Interpretive Data: H igh Sensitive Troponin I Reference Ranges: Female: 0-51 ng/L Male: 0-76 ng/L Testing performed on [employer] using a homogeneous sandwich chemiluminescent immunoassay based on [employer] technology. Albumin BCP dye [Mass/Vol] 3.1 G/dL [...] ng/L Male: 0-76 ng/L Testing performed on [employer] using a homogeneous sandwich chemiluminescent immunoassay based on [employer] technology. Urea nitrogen [Mass/Vol] 13 mg/dL Normal [...] 06-12-2025 Magnesium [Mass/Vol] 1.5 mg/dL Low 1.6-2.4 [facility] Comment on above: Performed By: #### T GOMEZ #### [facility] [address] [place] [address] PBNPon 06-12-2025 Natriuretic peptide B (Bld) [Mass/Vol] 8817 pg/mL High 0-900 [facility] Comment on above: Performed By: #### T GOMEZ #### [facility] [address] [place] [address] Natriuretic peptide B (Bld) [Mass/Vol] 9545 pg/mL High 0-125 [facility] Comment on above: Result Comment: NT-p roBNP results of less than 300 pg/mL effectively rules out acute congestive heart failure with 99% negative predictive value. Performed By: #### A DIFF, PBNP, TROPHS, CBC, GFR, MDW, ANEU, BMP #### [address] [address] [facility] High Sensitivity Troponin I 20 ng/L Normal 0-34 [facility] Comment on above: Result Comment: High Sensitive Troponin I Reference Ranges: Female: 0-34 ng/L Male: 0-54 ng/L Testing performed on [employer] IM analyzer using direct chemiluminescent technology. Performed By: #### T GOMEZ #### [place] [address] High Sensitivity Troponin I 22 ng/L Normal 0-34 [facility] Comment on above: Result Comment: High Sensitive Troponin I Reference Ranges: Female: 0-34 ng/L Male: 0-54 ng/L Testing performed on [employer] IM analyzer using direct chemiluminescent technology. Performed By: #### T GOMEZ #### [place] [address] High Sensitivity Troponin I 35 ng/L Normal 0-51 [facility] Comment on above: Result Comment: High Sensitive Troponin I Reference Ranges: Female: 0-51 ng/L Male: 0-76 ng/L Testing performed on [employer] using a homogeneous sandwich chemiluminescent immunoassay based on [employer] technology. Performed By: #### A DIFF, PBNP, TROPHS, CBC, GFR, MDW, ANEU, BMP #### [address] [address] High Sensitivity Troponin I 36 ng/L Normal 0-51 [facility] Comment on above: Result Comment: High Sensitive Troponin I Reference Ranges: Female: 0-51 ng/L Male: 0-76 ng/L Testing performed on [employer] using a homogeneous sandwich chemiluminescent immunoassay based on [employer] technology. Performed By: #### A DIFF, PBNP, TROPHS, CBC, GFR, MDW, ANEU, BMP #### [address] [address] UAon 06-12-2025 Color (U) Yellow Normal [facility] Comment on above: Performed By: #### T GOMEZ #### [place] [address] Glucose (U) [Mass/Vol] Negative Normal Negative [facility] Comment on above: Performed By: #### T GOMEZ #### [place] [id number] Ketones Ql (U) Negative Normal Neg-Trace [facility] Comment on above: Performed By: #### T GOMEZ #### [place] [address] UA Appear Clear Normal Clear [facility] Comment on above: Performed By: #### T GOMEZ #### [place] [address] UA Blood Negative Normal Neg-Trace [facility] Comment on above: Performed By: #### T GOMEZ #### [place] [address] UA Leuk Est Negative Normal Negative [facility] Comment on above: Performed By: #### T GOMEZ #### [place] [address] UA Nitrite Negative Normal Negative [facility] Comment on above: Performed By: #### T GOMEZ #### [place] [address] UA pH 5.0 Normal 5.0 - 8.0 [facility] Comment on above: Performed By: #### T GOMEZ #### [place] [address] UA Protein Negative Normal Negative [facility] Comment on above: Performed By: #### T GOMEZ #### [place] [address] UA Spec Grav <=1.005 Abnormal 1.006-1.029 [facility] Comment on above: Performed By: #### T GOMEZ #### [place] [address] UA Specimen Type Clean Catch Normal [facility] Comment on above: Performed By: #### T GOMEZ #### [place] [address] UA Urobilinogen 0.2 E.U./dL Normal 0.2-1.0 [facility] Comment on above: Performed By: #### T GOMEZ #### [facility] [address] [place] [address] Urobilinogen (U) [Mass/Vol] Negative Normal Neg-Trace [facility] Comment on above: Performed By: #### T GOMEZ #### [facility] [address] [place] [address] XR CHEST 1 VIEWon 06-12-2025 XR CHEST [...] 06/12/2025 3:52:07 PM Ordering Provider: KRYS PICKETT [facility] .GFRon 05-21-2025 Estimated Glomerular Filtration Rate 79 ml/min/1.73sqm Normal [facility] Comment on above: Result Comment: Stages [...] TROPHS, CBC, GFR, MDW, ANEU, BMP #### [address] [address] BMPon 05-21-2025 BUN/Creatinine Ratio 32 ratio High 7-27 [facility] Comment on above: Performed By: #### A DIFF, PBNP, TROPHS, CBC, GFR, MDW, ANEU, BMP #### [address] [address] Calcium [Mass/Vol] 7.9 mg/dL Low 8.4-10.2 [facility] Comment on above: Performed By: #### A DIFF, PBNP, TROPHS, CBC, GFR, MDW, ANEU, BMP #### [address] [address] Chloride [Moles/Vol] 108 mmol/L High 98-107 [facility] Comment on above: Performed By: #### A DIFF, PBNP, TROPHS, CBC, GFR, MDW, ANEU, BMP #### [address] [address] CO2 [Moles/Vol] 35 mmol/L High 23-31 [facility] Comment on above: Performed By: #### A DIFF, PBNP, TROPHS, CBC, GFR, MDW, ANEU, BMP #### [address] [address] Creatinine [Mass/Vol] 0.80 mg/dL Normal 0.51-0.95 [facility] Comment on above: Performed By: #### A DIFF, PBNP, TROPHS, CBC, GFR, MDW, ANEU, BMP #### [address] [address] Electrolyte Balance 4.0 mEq/L Normal 4.0-15.0 [facility] Comment on above: Performed By: #### A DIFF, PBNP, TROPHS, CBC, GFR, MDW, ANEU, BMP #### [address] [address] Glucose [Mass/Vol] 124 mg/dL High 83-110 [facility] Comment on above: Performed By: #### A DIFF, PBNP, TROPHS, CBC, GFR, MDW, ANEU, BMP #### [address] [address] Potassium [Moles/Vol] 3.6 mmol/L Normal 3.5-5.1 [facility] Comment on above: Performed By: #### A DIFF, PBNP, TROPHS, CBC, GFR, MDW, ANEU, BMP #### [address] [address] Sodium [Moles/Vol] 147 mmol/L High 136-145 [facility] Comment on above: Performed By: #### A DIFF, PBNP, TROPHS, CBC, GFR, MDW, ANEU, BMP #### [address] [address] Urea nitrogen [Mass/Vol] 26 mg/dL High 7-18 [facility] Comment on above: Performed By: #### A DIFF, PBNP, TROPHS, CBC, GFR, MDW, ANEU, BMP #### [address] [address] LABORATORYOrdered By: SYSTEM SYSTEM on 05-21-2025 Calcium [...] 05-21-2025 Magnesium [Mass/Vol] 2.0 mg/dL Normal 1.8-2.4 [facility] Comment on above: Performed By: #### A DIFF, PBNP, TROPHS, CBC, GFR, MDW, ANEU, BMP #### [address] [address] .Auto Diffon 05-20-2025 Basophil, Absolute 0.0 10 3/mcL Normal 0.0-0.3 [facility] Comment on above: Performed By: #### M RSAPCR #### [facility] [address] [place] [id number] #### CVFLURV #### [id number] [place], [place] [address] Basophils/100 WBC (Bld) 0.1 % Normal 0.0-2.5 [facility] Comment on above: Performed By: #### M RSAPCR #### [place] [address] #### CVFLURV #### [address] [address] Eosinophil, Absolute 0.0 10 3/mcL Normal 0.0-0.7 [facility] Comment on above: Performed By: #### M RSAPCR #### [place] [address] #### CVFLURV #### [address] [address] Eosinophils/100 WBC (Bld) 0.2 % Normal 0.0-6.0 [facility] Comment on above: Performed By: #### M RSAPCR #### [place] [address] #### CVFLURV #### [address] [address] Lymphocyte, Absolute 2.0 10 3/mcL Normal 0.9-4.3 [facility] Comment on above: Performed By: #### M RSAPCR #### [place] [address] #### CVFLURV #### [address] [address] Lymphocytes/100 WBC (Bld) 25.3 % Normal 20.0-40.0 [facility] Comment on above: Performed By: #### M RSAPCR #### [place] [address] #### CVFLURV #### [address] [address] Monocyte, Absolute 1.0 10 3/mcL Normal 0.1-1.4 [facility] Comment on above: Performed By: #### M RSAPCR #### [place] [address] #### CVFLURV #### [address] [address] Monocytes/100 WBC (Bld) 13.5 % High 2.0-13.0 [facility] Comment on above: Performed By: #### M RSAPCR #### [place] [address] #### CVFLURV #### [address] [address] Neutrophils/100 WBC (Bld) 60.9 % Normal 50.0-75.0 [facility] Comment on above: Performed By: #### M RSAPCR #### [place] [address] #### CVFLURV #### [address] [address] .GFRon 05-20-2025 Estimated Glomerular Filtration Rate 76 ml/min/1.73sqm Normal [facility] Comment on above: Result Comment: Stages [...] results. Performed By: #### M RSAPCR #### [place] [address] #### CVFLURV #### [address] [address] .NEUABSon 05-20-2025 Neutrophil, Absolute 4.7 10 3/mcL Normal 2.3-8.1 [facility] Comment on above: Performed By: #### M RSAPCR #### [place] [address] #### CVFLURV #### [address] [address] BMPon 05-20-2025 BUN/Creatinine Ratio 33 ratio High 7-27 [facility] Comment on above: Performed By: #### M RSAPCR #### [place] [address] #### CVFLURV #### [address] [address] Calcium [Mass/Vol] 8.0 mg/dL Low 8.4-10.2 [facility] Comment on above: Performed By: #### M RSAPCR #### [place] [address] #### CVFLURV #### [address] [address] Chloride [Moles/Vol] 104 mmol/L Normal 98-107 [facility] Comment on above: Performed By: #### M RSAPCR #### [place] [address] #### CVFLURV #### [address] [address] CO2 [Moles/Vol] 38 mmol/L High 23-31 [facility] Comment on above: Performed By: #### M RSAPCR #### [place] [address] #### CVFLURV #### [address] [address] Creatinine [Mass/Vol] 0.83 mg/dL Normal 0.51-0.95 [facility] Comment on above: Performed By: #### M RSAPCR #### [place] [address] #### CVFLURV #### [address] [address] Electrolyte Balance 0.0 mEq/L Low 4.0-15.0 [facility] Comment on above: Performed By: #### M RSAPCR #### [place] [address] #### CVFLURV #### [address] [address] Glucose [Mass/Vol] 113 mg/dL High 83-110 [facility] Comment on above: Performed By: #### M RSAPCR #### [place] [address] #### CVFLURV #### [address] [address] Potassium [Moles/Vol] 4.3 mmol/L Normal 3.5-5.1 [facility] Comment on above: Performed By: #### M RSAPCR #### [place] [address] #### CVFLURV #### [address] [address] Sodium [Moles/Vol] 142 mmol/L Normal 136-145 [facility] Comment on above: Performed By: #### M RSAPCR #### [place] [address] #### CVFLURV #### [address] [address] Urea nitrogen [Mass/Vol] 27 mg/dL High 7-18 [facility] Comment on above: Performed By: #### M RSAPCR #### [place] [address] #### CVFLURV #### [address] [address] CBCon 05-20-2025 Erythrocyte distribution width (RBC) [Ratio] 17.4 % High 11.5-15.5 [facility] Comment on above: Performed By: #### M RSAPCR #### [place] [address] #### CVFLURV #### [address] [address] Hematocrit (Bld) [Volume fraction] 39.0 % Normal 34.0-46.0 [facility] Comment on above: Performed By: #### M RSAPCR #### [place] [address] #### CVFLURV #### [address] [address] Hgb 12.7 G/dL Normal 12.0-16.0 [facility] Comment on above: Performed By: #### M RSAPCR #### [place] [address] #### CVFLURV #### [address] [address] MCH (RBC) [Entitic mass] 29.8 pg Normal 27.0-33.0 [facility] Comment on above: Performed By: #### M RSAPCR #### [place] [address] #### CVFLURV #### [place] [address] MCHC 32.5 G/dL Normal 32.0-36.0 [facility] Comment on above: Performed By: #### M RSAPCR #### [place] [address] #### CVFLURV #### [place] [address] MCV (RBC) [Entitic vol] 91.8 fL Normal 80.0-99.0 [facility] Comment on above: Performed By: #### M RSAPCR #### [place] [address] #### CVFLURV #### [address] [address] Platelet 264 10 3/mcL Normal 150-450 [facility] Comment on above: Performed By: #### M RSAPCR #### [place] [address] #### CVFLURV #### [address] [address] Platelet mean volume (Bld) [Entitic vol] 9.1 fL Normal 6.6-10.5 [facility] Comment on above: Performed By: #### M RSAPCR #### [place] [address] #### CVFLURV #### [address] [place], [place] [address] RBC 4.25 10 6/mcL Normal 4.10-5.30 [facility] Comment on above: Performed By: #### M RSAPCR #### [address] [address] #### CVFLURV #### [address] [address] WBC 7.8 10 3/mcL Normal 4.5-10.8 [facility] Comment on above: Performed By: #### M RSAPCR #### [place] [address] #### CVFLURV #### [address] [address] LABORATORYOrdered By: SYSTEM SYSTEM on 05-20-2025 Basophils [...] 05-20-2025 Magnesium [Mass/Vol] 1.9 mg/dL Normal 1.8-2.4 [facility] Comment on above: Performed By: #### M RSAPCR #### [place] [address] #### CVFLURV #### [address] [address] MYCOon 05-20-2025 Mycoplasma IgG Positive Normal [facility] Comment on above: Result Comment: INTE RPRETATION OF MYCOPLASMA IgG BY EIA: Negative: No detectable M. pneumoniae IgG antibody. Positive: Mycoplasma pneumoniae IgG antibody Detected. Equivocal: Equivocal for IgG antibodies to Mycoplasma pneumoniae. Suggest repeat testing in 10-14 days. Performed By: #### M RSAPCR #### [place] [address] #### CVFLURV #### [address] [address] .Auto Diffon 05-19-2025 Basophil, Absolute 0.0 10 3/mcL Normal 0.0-0.3 [facility] Comment on above: Performed By: #### A DIFF, PBNP, TROPHS, CBC, GFR, MDW, ANEU, BMP #### [address] [address] Basophils/100 WBC (Bld) 0.3 % Normal 0.0-2.5 [facility] Comment on above: Performed By: #### A DIFF, PBNP, TROPHS, CBC, GFR, MDW, ANEU, BMP #### [address] [address] Eosinophil, Absolute 0.0 10 3/mcL Normal 0.0-0.7 [facility] Comment on above: Performed By: #### A DIFF, PBNP, TROPHS, CBC, GFR, MDW, ANEU, BMP #### [address] [address] Eosinophils/100 WBC (Bld) 0.2 % Normal 0.0-6.0 [facility] Comment on above: Performed By: #### A DIFF, PBNP, TROPHS, CBC, GFR, MDW, ANEU, BMP #### [address] [address] Lymphocyte, Absolute 1.8 10 3/mcL Normal 0.9-4.3 [facility] Comment on above: Performed By: #### A DIFF, PBNP, TROPHS, CBC, GFR, MDW, ANEU, BMP #### [address] [address] Lymphocytes/100 WBC (Bld) 24.9 % Normal 20.0-40.0 [facility] Comment on above: Performed By: #### A DIFF, PBNP, TROPHS, CBC, GFR, MDW, ANEU, BMP #### [address] [address] Monocyte, Absolute 1.0 10 3/mcL Normal 0.1-1.4 [facility] Comment on above: Performed By: #### A DIFF, PBNP, TROPHS, CBC, GFR, MDW, ANEU, BMP #### [address] [address] Monocytes/100 WBC (Bld) 13.5 % High 2.0-13.0 [facility] Comment on above: Performed By: #### A DIFF, PBNP, TROPHS, CBC, GFR, MDW, ANEU, BMP #### [address] [address] Neutrophils/100 WBC (Bld) 61.1 % Normal 50.0-75.0 [facility] Comment on above: Performed By: #### A DIFF, PBNP, TROPHS, CBC, GFR, MDW, ANEU, BMP #### [place] [address] [place], [place] [address] .GFRon 05-19-2025 Estimated Glomerular Filtration Rate 70 ml/min/1.73sqm Normal [facility] Comment on above: Result Comment: Stages [...] TROPHS, CBC, GFR, MDW, ANEU, BMP #### [place] [address] [place], [place] [address] .NEUABSon 05-19-2025 Neutrophil, Absolute 4.3 10 3/mcL Normal 2.3-8.1 [facility] Comment on above: Performed By: #### A DIFF, PBNP, TROPHS, CBC, GFR, MDW, ANEU, BMP #### [place] [address] [place], [place] [address] BMPon 05-19-2025 BUN/Creatinine Ratio 31 ratio High 7-27 [facility] Comment on above: Performed By: #### A DIFF, PBNP, TROPHS, CBC, GFR, MDW, ANEU, BMP #### [place] [address] [place], [place] [address] Calcium [Mass/Vol] 8.3 mg/dL Low 8.4-10.2 [facility] Comment on above: Performed By: #### A DIFF, PBNP, TROPHS, CBC, GFR, MDW, ANEU, BMP #### [address] [address] Chloride [Moles/Vol] 106 mmol/L Normal 98-107 [facility] Comment on above: Performed By: #### A DIFF, PBNP, TROPHS, CBC, GFR, MDW, ANEU, BMP #### [address] [address] CO2 [Moles/Vol] 41 mmol/L Critically abnormal 23-31 [facility] Comment on above: Performed By: #### A DIFF, PBNP, TROPHS, CBC, GFR, MDW, ANEU, BMP #### [address] [address] Creatinine [Mass/Vol] 0.89 mg/dL Normal 0.51-0.95 [facility] Comment on above: Performed By: #### A DIFF, PBNP, TROPHS, CBC, GFR, MDW, ANEU, BMP #### [address] [address] Electrolyte Balance -1.0 mEq/L Low 4.0-15.0 [facility] Comment on above: Performed By: #### A DIFF, PBNP, TROPHS, CBC, GFR, MDW, ANEU, BMP #### [address] [address] Glucose [Mass/Vol] 108 mg/dL Normal 83-110 [facility] Comment on above: Performed By: #### A DIFF, PBNP, TROPHS, CBC, GFR, MDW, ANEU, BMP #### [address] [address] Potassium [Moles/Vol] 3.9 mmol/L Normal 3.5-5.1 [facility] Comment on above: Performed By: #### A DIFF, PBNP, TROPHS, CBC, GFR, MDW, ANEU, BMP #### [address] [address] Sodium [Moles/Vol] 146 mmol/L High 136-145 [facility] Comment on above: Performed By: #### A DIFF, PBNP, TROPHS, CBC, GFR, MDW, ANEU, BMP #### [place] [address] Urea nitrogen [Mass/Vol] 28 mg/dL High 7-18 [facility] Comment on above: Performed By: #### A DIFF, PBNP, TROPHS, CBC, GFR, MDW, ANEU, BMP #### [place] [address] CBCon 05-19-2025 Erythrocyte distribution width (RBC) [Ratio] 17.8 % High 11.5-15.5 [facility] Comment on above: Performed By: #### A DIFF, PBNP, TROPHS, CBC, GFR, MDW, ANEU, BMP #### [place] [address] Hematocrit (Bld) [Volume fraction] 39.7 % Normal 34.0-46.0 [facility] Comment on above: Performed By: #### A DIFF, PBNP, TROPHS, CBC, GFR, MDW, ANEU, BMP #### [place] [address] Hgb 12.7 G/dL Normal 12.0-16.0 [facility] Comment on above: Performed By: #### A DIFF, PBNP, TROPHS, CBC, GFR, MDW, ANEU, BMP #### [place] [address] MCH (RBC) [Entitic mass] 29.3 pg Normal 27.0-33.0 [facility] Comment on above: Performed By: #### A DIFF, PBNP, TROPHS, CBC, GFR, MDW, ANEU, BMP #### [place] [address] MCHC 32.1 G/dL Normal 32.0-36.0 [facility] Comment on above: Performed By: #### A DIFF, PBNP, TROPHS, CBC, GFR, MDW, ANEU, BMP #### [address] [address] MCV (RBC) [Entitic vol] 91.5 fL Normal 80.0-99.0 [facility] Comment on above: Performed By: #### A DIFF, PBNP, TROPHS, CBC, GFR, MDW, ANEU, BMP #### [address] [address] Platelet 261 10 3/mcL Normal 150-450 [facility] Comment on above: Performed By: #### A DIFF, PBNP, TROPHS, CBC, GFR, MDW, ANEU, BMP #### [place] [address] Platelet mean volume (Bld) [Entitic vol] 9.1 fL Normal 6.6-10.5 [facility] Comment on above: Performed By: #### A DIFF, PBNP, TROPHS, CBC, GFR, MDW, ANEU, BMP #### [place] [address] RBC 4.33 10 6/mcL Normal 4.10-5.30 [facility] Comment on above: Performed By: #### A DIFF, PBNP, TROPHS, CBC, GFR, MDW, ANEU, BMP #### [place] [address] WBC 7.0 10 3/mcL Normal 4.5-10.8 [facility] Comment on above: Performed By: #### A DIFF, PBNP, TROPHS, CBC, GFR, MDW, ANEU, BMP #### [address] [address] LABORATORYOrdered By: SYSTEM SYSTEM on 05-19-2025 Basophils [...] 05-19-2025 Magnesium [Mass/Vol] 1.9 mg/dL Normal 1.8-2.4 [facility] Comment on above: Performed By: #### A DIFF, PBNP, TROPHS, CBC, GFR, MDW, ANEU, BMP #### [address] [address] PBNPon 05-19-2025 Natriuretic peptide B (Bld) [Mass/Vol] 4502 pg/mL High 0-125 [facility] Comment on above: Result Comment: NT-p roBNP results of less than 300 pg/mL effectively rules out acute congestive heart failure with 99% negative predictive value. Performed By: #### A DIFF, PBNP, TROPHS, CBC, GFR, MDW, ANEU, BMP #### [address] [address] .Auto Diffon 05-18-2025 Basophil, Absolute 0.0 10 3/mcL Normal 0.0-0.3 [facility] Comment on above: Performed By: #### A DIFF, PBNP, TROPHS, CBC, GFR, MDW, ANEU, BMP #### [address] [address] Basophils/100 WBC (Bld) 0.2 % Normal 0.0-2.5 [facility] Comment on above: Performed By: #### A DIFF, PBNP, TROPHS, CBC, GFR, MDW, ANEU, BMP #### [address] [address] Eosinophil, Absolute 0.0 10 3/mcL Normal 0.0-0.7 [facility] Comment on above: Performed By: #### A DIFF, PBNP, TROPHS, CBC, GFR, MDW, ANEU, BMP #### [address] [address] Eosinophils/100 WBC (Bld) 0.0 % Normal 0.0-6.0 [facility] Comment on above: Performed By: #### A DIFF, PBNP, TROPHS, CBC, GFR, MDW, ANEU, BMP #### [address] [address] Lymphocyte, Absolute 0.7 10 3/mcL Low 0.9-4.3 [facility] Comment on above: Performed By: #### A DIFF, PBNP, TROPHS, CBC, GFR, MDW, ANEU, BMP #### [address] [address] Lymphocytes/100 WBC (Bld) 7.9 % Low 20.0-40.0 [facility] Comment on above: Performed By: #### A DIFF, PBNP, TROPHS, CBC, GFR, MDW, ANEU, BMP #### [place] [address] [place], [place] [address] Monocyte, Absolute 1.0 10 3/mcL Normal 0.1-1.4 [facility] Comment on above: Performed By: #### A DIFF, PBNP, TROPHS, CBC, GFR, MDW, ANEU, BMP #### [address] [address] Monocytes/100 WBC (Bld) 11.5 % Normal 2.0-13.0 [facility] Comment on above: Performed By: #### A DIFF, PBNP, TROPHS, CBC, GFR, MDW, ANEU, BMP #### [address] [address] Neutrophils/100 WBC (Bld) 80.4 % High 50.0-75.0 [facility] Comment on above: Performed By: #### A DIFF, PBNP, TROPHS, CBC, GFR, MDW, ANEU, BMP #### [address] [address] .GFRon 05-18-2025 Estimated Glomerular Filtration Rate 69 ml/min/1.73sqm Normal [facility] Comment on above: Result Comment: Stages [...] TROPHS, CBC, GFR, MDW, ANEU, BMP #### [address] [address] .NEUABSon 05-18-2025 Neutrophil, Absolute 7.0 10 3/mcL Normal 2.3-8.1 [facility] Comment on above: Performed By: #### A DIFF, PBNP, TROPHS, CBC, GFR, MDW, ANEU, BMP #### [address] [address] BMPon 05-18-2025 BUN/Creatinine Ratio 29 ratio High 7-27 [facility] Comment on above: Performed By: #### A DIFF, PBNP, TROPHS, CBC, GFR, MDW, ANEU, BMP #### [address] [address] Calcium [Mass/Vol] 8.2 mg/dL Low 8.4-10.2 [facility] Comment on above: Performed By: #### A DIFF, PBNP, TROPHS, CBC, GFR, MDW, ANEU, BMP #### [address] [address] Chloride [Moles/Vol] 106 mmol/L Normal 98-107 [facility] Comment on above: Performed By: #### A DIFF, PBNP, TROPHS, CBC, GFR, MDW, ANEU, BMP #### [address] [address] CO2 [Moles/Vol] 37 mmol/L High 23-31 [facility] Comment on above: Performed By: #### A DIFF, PBNP, TROPHS, CBC, GFR, MDW, ANEU, BMP #### [address] [address] Creatinine [Mass/Vol] 0.90 mg/dL Normal 0.51-0.95 [facility] Comment on above: Performed By: #### A DIFF, PBNP, TROPHS, CBC, GFR, MDW, ANEU, BMP #### [address] [address] Electrolyte Balance 3.0 mEq/L Low 4.0-15.0 [facility] Comment on above: Performed By: #### A DIFF, PBNP, TROPHS, CBC, GFR, MDW, ANEU, BMP #### [address] [address] Glucose [Mass/Vol] 130 mg/dL High 83-110 [facility] Comment on above: Performed By: #### A DIFF, PBNP, TROPHS, CBC, GFR, MDW, ANEU, BMP #### [address] [address] Potassium [Moles/Vol] 4.1 mmol/L Normal 3.5-5.1 [facility] Comment on above: Performed By: #### A DIFF, PBNP, TROPHS, CBC, GFR, MDW, ANEU, BMP #### [address] [address] Sodium [Moles/Vol] 146 mmol/L High 136-145 [facility] Comment on above: Performed By: #### A DIFF, PBNP, TROPHS, CBC, GFR, MDW, ANEU, BMP #### [address] [address] Urea nitrogen [Mass/Vol] 26 mg/dL High 7-18 [facility] Comment on above: Performed By: #### A DIFF, PBNP, TROPHS, CBC, GFR, MDW, ANEU, BMP #### [address] [address] CBCon 05-18-2025 Erythrocyte distribution width (RBC) [Ratio] 17.9 % High 11.5-15.5 [facility] Comment on above: Performed By: #### A DIFF, PBNP, TROPHS, CBC, GFR, MDW, ANEU, BMP #### [address] [address] Hematocrit (Bld) [Volume fraction] 37.7 % Normal 34.0-46.0 [facility] Comment on above: Performed By: #### A DIFF, PBNP, TROPHS, CBC, GFR, MDW, ANEU, BMP #### [address] [address] Hgb 12.5 G/dL Normal 12.0-16.0 [facility] Comment on above: Performed By: #### A DIFF, PBNP, TROPHS, CBC, GFR, MDW, ANEU, BMP #### [place] [address] MCH (RBC) [Entitic mass] 30.4 pg Normal 27.0-33.0 [facility] Comment on above: Performed By: #### A DIFF, PBNP, TROPHS, CBC, GFR, MDW, ANEU, BMP #### [place] [address] MCHC 33.2 G/dL Normal 32.0-36.0 [facility] Comment on above: Performed By: #### A DIFF, PBNP, TROPHS, CBC, GFR, MDW, ANEU, BMP #### [address] [address] MCV (RBC) [Entitic vol] 91.4 fL Normal 80.0-99.0 [facility] Comment on above: Performed By: #### A DIFF, PBNP, TROPHS, CBC, GFR, MDW, ANEU, BMP #### [address] [address] Platelet 275 10 3/mcL Normal 150-450 [facility] Comment on above: Performed By: #### A DIFF, PBNP, TROPHS, CBC, GFR, MDW, ANEU, BMP #### [address] [address] Platelet mean volume (Bld) [Entitic vol] 9.3 fL Normal 6.6-10.5 [facility] Comment on above: Performed By: #### A DIFF, PBNP, TROPHS, CBC, GFR, MDW, ANEU, BMP #### [place] [address] RBC 4.13 10 6/mcL Normal 4.10-5.30 [facility] Comment on above: Performed By: #### A DIFF, PBNP, TROPHS, CBC, GFR, MDW, ANEU, BMP #### [place] [address] [place], [place] [address] WBC 8.7 10 3/mcL Normal 4.5-10.8 [facility] Comment on above: Performed By: #### A DIFF, PBNP, TROPHS, CBC, GFR, MDW, ANEU, BMP #### [facility] [address] [place], [place] [address] LABORATORYOrdered By: SYSTEM SYSTEM on 05-18-2025 Basophils [...] 05-18-2025 Magnesium [Mass/Vol] 1.9 mg/dL Normal 1.8-2.4 [facility] Comment on above: Performed By: #### A DIFF, PBNP, TROPHS, CBC, GFR, MDW, ANEU, BMP #### [address] [address] MYCOon 05-18-2025 Mycoplasma IgM Negative Normal [facility] Comment on above: Result Comment: INTE [...] M RSAPCR #### [facility] [address] [place] [address] #### CVFLURV #### [address] [address] PBNPon 05-18-2025 Natriuretic peptide B (Bld) [Mass/Vol] 6422 pg/mL High 0-125 [facility] Comment on above: Result Comment: NT-p roBNP results of less than 300 pg/mL effectively rules out acute congestive heart failure with 99% negative predictive value. Performed By: #### A DIFF, PBNP, TROPHS, CBC, GFR, MDW, ANEU, BMP #### [address] [address] .Auto Diffon 05-17-2025 Basophil, Absolute 0.0 10 3/mcL Normal 0.0-0.3 [facility] Comment on above: Performed By: #### M RSAPCR #### [place] [address] #### CVFLURV #### [address] [address] Basophils/100 WBC (Bld) 0.3 % Normal 0.0-2.5 [facility] Comment on above: Performed By: #### M RSAPCR #### [place] [address] #### CVFLURV #### [address] [address] Eosinophil, Absolute 0.0 10 3/mcL Normal 0.0-0.7 [facility] Comment on above: Performed By: #### M RSAPCR #### [place] [address] #### CVFLURV #### [address] [address] Eosinophils/100 WBC (Bld) 0.0 % Normal 0.0-6.0 [facility] Comment on above: Performed By: #### M RSAPCR #### [place] [address] #### CVFLURV #### [address] [address] Lymphocyte, Absolute 0.3 10 3/mcL Low 0.9-4.3 [facility] Comment on above: Performed By: #### M RSAPCR #### [place] [address] #### CVFLURV #### [address] [address] Lymphocytes/100 WBC (Bld) 6.4 % Low 20.0-40.0 [facility] Comment on above: Performed By: #### M RSAPCR #### [place] [address] #### CVFLURV #### [address] [address] Monocyte, Absolute 0.1 10 3/mcL Normal 0.1-1.4 [facility] Comment on above: Performed By: #### M RSAPCR #### [place] [address] #### CVFLURV #### [address] [address] Monocytes/100 WBC (Bld) 1.5 % Low 2.0-13.0 [facility] Comment on above: Performed By: #### M RSAPCR #### [place] [address] #### CVFLURV #### [address] [address] Neutrophils/100 WBC (Bld) 91.8 % High 50.0-75.0 [facility] Comment on above: Performed By: #### M RSAPCR #### [place] [address] #### CVFLURV #### [address] [address] .GFRon 05-17-2025 Estimated Glomerular Filtration Rate 66 ml/min/1.73sqm Normal [facility] Comment on above: Result Comment: Stages [...] results. Performed By: #### M RSAPCR #### [place] [address] #### CVFLURV #### [address] [address] .NEUABSon 05-17-2025 Neutrophil, Absolute 3.6 10 3/mcL Normal 2.3-8.1 [facility] Comment on above: Performed By: #### M RSAPCR #### [place] [address] #### CVFLURV #### [address] [address] BMPon 05-17-2025 BUN/Creatinine Ratio 17 ratio Normal 7-27 [facility] Comment on above: Performed By: #### M RSAPCR #### [place] [address] #### CVFLURV #### [address] [address] Calcium [Mass/Vol] 8.0 mg/dL Low 8.4-10.2 [facility] Comment on above: Performed By: #### M RSAPCR #### [place] [address] #### CVFLURV #### [address] [address] Chloride [Moles/Vol] 107 mmol/L Normal 98-107 [facility] Comment on above: Performed By: #### M RSAPCR #### [place] [address] #### CVFLURV #### [address] [address] CO2 [Moles/Vol] 39 mmol/L High 23-31 [facility] Comment on above: Performed By: #### M RSAPCR #### [place] [address] #### CVFLURV #### [address] [address] Creatinine [Mass/Vol] 0.93 mg/dL Normal 0.51-0.95 [facility] Comment on above: Performed By: #### M RSAPCR #### [place] [address] #### CVFLURV #### [address] [address] Electrolyte Balance 2.0 mEq/L Low 4.0-15.0 [facility] Comment on above: Performed By: #### M RSAPCR #### [place] [address] #### CVFLURV #### [address] [address] Glucose [Mass/Vol] 174 mg/dL High 83-110 [facility] Comment on above: Performed By: #### M RSAPCR #### [place] [address] #### CVFLURV #### [address] [address] Potassium [Moles/Vol] 4.6 mmol/L Normal 3.5-5.1 [facility] Comment on above: Performed By: #### M RSAPCR #### [place] [address] #### CVFLURV #### [address] [address] Sodium [Moles/Vol] 148 mmol/L High 136-145 [facility] Comment on above: Performed By: #### M RSAPCR #### [place] [address] #### CVFLURV #### [address] [address] Urea nitrogen [Mass/Vol] 16 mg/dL Normal 7-18 [facility] Comment on above: Performed By: #### M RSAPCR #### [place] [address] #### CVFLURV #### [place] [address] CBCon 05-17-2025 Erythrocyte distribution width (RBC) [Ratio] 17.8 % High 11.5-15.5 [facility] Comment on above: Performed By: #### M RSAPCR #### [place] [address] #### CVFLURV #### [place] [address] Hematocrit (Bld) [Volume fraction] 38.0 % Normal 34.0-46.0 [facility] Comment on above: Performed By: #### M RSAPCR #### [place] [address] #### CVFLURV #### [place] [address] Hgb 12.3 G/dL Normal 12.0-16.0 [facility] Comment on above: Performed By: #### M RSAPCR #### [place] [address] #### CVFLURV #### [place] [address] MCH (RBC) [Entitic mass] 29.7 pg Normal 27.0-33.0 [facility] Comment on above: Performed By: #### M RSAPCR #### [place] [address] #### CVFLURV #### [place] [address] MCHC 32.2 G/dL Normal 32.0-36.0 [facility] Comment on above: Performed By: #### M RSAPCR #### [place] [address] #### CVFLURV #### [address] [address] MCV (RBC) [Entitic vol] 92.2 fL Normal 80.0-99.0 [facility] Comment on above: Performed By: #### M RSAPCR #### [place] [address] #### CVFLURV #### [address] [address] Platelet 257 10 3/mcL Normal 150-450 [facility] Comment on above: Performed By: #### M RSAPCR #### [place] [address] #### CVFLURV #### [address] [address] Platelet mean volume (Bld) [Entitic vol] 9.3 fL Normal 6.6-10.5 [facility] Comment on above: Performed By: #### M RSAPCR #### [place] [address] #### CVFLURV #### [address] [address] RBC 4.12 10 6/mcL Normal 4.10-5.30 [facility] Comment on above: Performed By: #### M RSAPCR #### [place] [address] #### CVFLURV #### [address] [address] WBC 4.0 10 3/mcL Low 4.5-10.8 [facility] Comment on above: Performed By: #### M RSAPCR #### [place] [address] #### CVFLURV #### [address] [address] CVFLURVon 05-17-2025 FLU A PCR Negative Normal Negative [facility] Comment on above: Performed By: #### M RSAPCR #### [place] [address] #### CVFLURV #### [address] [address] FLU B PCR Negative Normal Negative [facility] Comment on above: Performed By: #### M RSAPCR #### [address] [address] #### CVFLURV #### [address] [address] RSV PCR Negative Normal Negative [facility] Comment on above: Performed By: #### M RSAPCR #### [place] [address] #### CVFLURV #### [place] [address] SARS-CoV-2 (COVID-19) RNA IVANA+probe Ql (Unsp spec) Negative Normal Negative [facility] Comment on above: Result Comment: Resu [...] results. Performed By: #### M RSAPCR #### [place] [address] #### CVFLURV #### [place] [address] LABORATORYOrdered By: SYSTEM SYSTEM on 05-17-2025 Natriuretic [...] Comment on above: Result Comment: [place] [id number] MRSA PCR Int See Below 2 *NA* [...] 05-17-2025 Magnesium [Mass/Vol] 1.5 mg/dL Low 1.8-2.4 [facility] Comment on above: Performed By: #### M RSAPCR #### [address] [address] #### CVFLURV #### [address] [address] MRSAPCRon 05-17-2025 MRSA (PCR) Not detected Normal Not Detected [facility] Comment on above: Result Comment: [place] [id number] Performed By: #### M RSAPCR #### [address] [address] #### CVFLURV #### [address] [address] MRSA PCR Int See Below Normal [facility] Comment on above: Result Comment: Clinical [...] reproducible. Performed By: #### M RSAPCR #### [address] [address] #### CVFLURV #### [address] [address] No Panel Informationon 05-17 Legionella Urine Ag Presumptive negative for L. pneumophila serogroup 1 antigen in urine, suggesting no recent or current infection. Legionnaire's disease cannot be ruled out since other serogroups and species may also cause disease. [facility] Work Phone: Microscopic examination of blood, culture Blood Culture: No Growth at 5 days. [facility] Work Phone: Streptococcus Pneumoniae Urine Antig Presumptive negative for pneumococcal pneumonia, suggesting no current or recent pneumococcal infection. Infection due to Strep pneumoniae cannot be ruled out since the antigen present in the sample may be below the detection limit of the test. [facility] Work Phone: Comment on above: This test has not be en evaluated on patients taking antibiotics for greater than 24 hours or on patients who have recently completed an antibiotic regimen. The accuracy of this test has not been proven in young children. PBNPon 05-17-2025 Natriuretic peptide B (Bld) [Mass/Vol] 5616 pg/mL High 0-125 [facility] Comment on above: Result Comment: NT-p roBNP results of less than 300 pg/mL effectively rules out acute congestive heart failure with 99% negative predictive value. Performed By: #### M RSAPCR #### [place] [address] #### CVFLURV #### [address] [address] .Auto Diffon 05-16-2025 Basophil, Absolute 0.1 10 3/mcL Normal 0.0-0.3 [facility] Comment on above: Performed By: #### A DIFF, PBNP, TROPHS, CBC, GFR, MDW, ANEU, BMP #### [address] [address] Basophils/100 WBC (Bld) 2.0 % Normal 0.0-2.5 [facility] Comment on above: Performed By: #### A DIFF, PBNP, TROPHS, CBC, GFR, MDW, ANEU, BMP #### [address] [address] Eosinophil, Absolute 0.1 10 3/mcL Normal 0.0-0.7 [facility] Comment on above: Performed By: #### A DIFF, PBNP, TROPHS, CBC, GFR, MDW, ANEU, BMP #### [address] [address] Eosinophils/100 WBC (Bld) 1.9 % Normal 0.0-6.0 [facility] Comment on above: Performed By: #### A DIFF, PBNP, TROPHS, CBC, GFR, MDW, ANEU, BMP #### [address] [address] Lymphocyte, Absolute 1.4 10 3/mcL Normal 0.9-4.3 [facility] Comment on above: Performed By: #### A DIFF, PBNP, TROPHS, CBC, GFR, MDW, ANEU, BMP #### [address] [address] Lymphocytes/100 WBC (Bld) 20.4 % Normal 20.0-40.0 [facility] Comment on above: Performed By: #### A DIFF, PBNP, TROPHS, CBC, GFR, MDW, ANEU, BMP #### [address] [address] Monocyte, Absolute 0.8 10 3/mcL Normal 0.1-1.4 [facility] Comment on above: Performed By: #### A DIFF, PBNP, TROPHS, CBC, GFR, MDW, ANEU, BMP #### [address] [address] Monocytes/100 WBC (Bld) 12.2 % Normal 2.0-13.0 [facility] Comment on above: Performed By: #### A DIFF, PBNP, TROPHS, CBC, GFR, MDW, ANEU, BMP #### [address] [address] Neutrophils/100 WBC (Bld) 63.5 % Normal 50.0-75.0 [facility] Comment on above: Performed By: #### A DIFF, PBNP, TROPHS, CBC, GFR, MDW, ANEU, BMP #### [address] [address] .GFRon 05-16-2025 Estimated Glomerular Filtration Rate 67 ml/min/1.73sqm Normal [facility] Comment on above: Result Comment: Stages [...] results. Performed By: #### M RSAPCR #### [address] [address] #### CVFLURV #### [address] [address] .MDWon 05-16-2025 Monocyte Distribution Width 16.95 Normal 0.00-20.00 [facility] Comment on above: Result Comment: For ED adult patients suspected of sepsis, MDW<=20.0 does not rule out sepsis or risk of sepsis Performed By: #### A DIFF, PBNP, TROPHS, CBC, GFR, MDW, ANEU, BMP #### [address] [address] .NEUABSon 05-16-2025 Neutrophil, Absolute 4.2 10 3/mcL Normal 2.3-8.1 [facility] Comment on above: Performed By: #### A DIFF, PBNP, TROPHS, CBC, GFR, MDW, ANEU, BMP #### [address] [address] BMPon 05-16-2025 BUN/Creatinine Ratio 13 ratio Normal 7-27 [facility] Comment on above: Performed By: #### A DIFF, PBNP, TROPHS, CBC, GFR, MDW, ANEU, BMP #### [address] [address] Calcium [Mass/Vol] 8.4 mg/dL Normal 8.4-10.2 [facility] Comment on above: Performed By: #### A DIFF, PBNP, TROPHS, CBC, GFR, MDW, ANEU, BMP #### [address] [address] Chloride [Moles/Vol] 109 mmol/L High 98-107 [facility] Comment on above: Performed By: #### A DIFF, PBNP, TROPHS, CBC, GFR, MDW, ANEU, BMP #### [address] [address] CO2 [Moles/Vol] 38 mmol/L High 23-31 [facility] Comment on above: Performed By: #### A DIFF, PBNP, TROPHS, CBC, GFR, MDW, ANEU, BMP #### [address] [address] Creatinine [Mass/Vol] 0.92 mg/dL Normal 0.51-0.95 [facility] Comment on above: Performed By: #### A DIFF, PBNP, TROPHS, CBC, GFR, MDW, ANEU, BMP #### [address] [address] Electrolyte Balance 2.0 mEq/L Low 4.0-15.0 [facility] Comment on above: Performed By: #### A DIFF, PBNP, TROPHS, CBC, GFR, MDW, ANEU, BMP #### [address] [address] Glucose [Mass/Vol] 124 mg/dL High 83-110 [facility] Comment on above: Performed By: #### A DIFF, PBNP, TROPHS, CBC, GFR, MDW, ANEU, BMP #### [address] [address] Potassium [Moles/Vol] 4.0 mmol/L Normal 3.5-5.1 [facility] Comment on above: Performed By: #### A DIFF, PBNP, TROPHS, CBC, GFR, MDW, ANEU, BMP #### [address] [address] Sodium [Moles/Vol] 149 mmol/L High 136-145 [facility] Comment on above: Performed By: #### A DIFF, PBNP, TROPHS, CBC, GFR, MDW, ANEU, BMP #### [address] [address] Urea nitrogen [Mass/Vol] 12 mg/dL Normal 7-18 [facility] Comment on above: Performed By: #### A DIFF, PBNP, TROPHS, CBC, GFR, MDW, ANEU, BMP #### [address] [address] CBCon 05-16-2025 Erythrocyte distribution width (RBC) [Ratio] 18.0 % High 11.5-15.5 [facility] Comment on above: Performed By: #### A DIFF, PBNP, TROPHS, CBC, GFR, MDW, ANEU, BMP #### [address] [address] Hematocrit (Bld) [Volume fraction] 43.3 % Normal 34.0-46.0 [facility] Comment on above: Performed By: #### A DIFF, PBNP, TROPHS, CBC, GFR, MDW, ANEU, BMP #### [address] [address] Hgb 13.8 G/dL Normal 12.0-16.0 [facility] Comment on above: Performed By: #### A DIFF, PBNP, TROPHS, CBC, GFR, MDW, ANEU, BMP #### [address] [address] MCH (RBC) [Entitic mass] 29.8 pg Normal 27.0-33.0 [facility] Comment on above: Performed By: #### A DIFF, PBNP, TROPHS, CBC, GFR, MDW, ANEU, BMP #### [address] [address] MCHC 31.9 G/dL Low 32.0-36.0 [facility] Comment on above: Performed By: #### A DIFF, PBNP, TROPHS, CBC, GFR, MDW, ANEU, BMP #### [address] [address] MCV (RBC) [Entitic vol] 93.3 fL Normal 80.0-99.0 [facility] Comment on above: Performed By: #### A DIFF, PBNP, TROPHS, CBC, GFR, MDW, ANEU, BMP #### [address] [address] Platelet 264 10 3/mcL Normal 150-450 [facility] Comment on above: Performed By: #### A DIFF, PBNP, TROPHS, CBC, GFR, MDW, ANEU, BMP #### [address] [address] Platelet mean volume (Bld) [Entitic vol] 9.0 fL Normal 6.6-10.5 [facility] Comment on above: Performed By: #### A DIFF, PBNP, TROPHS, CBC, GFR, MDW, ANEU, BMP #### [address] [address] RBC 4.64 10 6/mcL Normal 4.10-5.30 [facility] Comment on above: Performed By: #### A DIFF, PBNP, TROPHS, CBC, GFR, MDW, ANEU, BMP #### [address] [address] WBC 6.6 10 3/mcL Normal 4.5-10.8 [facility] Comment on above: Performed By: #### A DIFF, PBNP, TROPHS, CBC, GFR, MDW, ANEU, BMP #### [place] [id number] [place] [address] LABORATORYOrdered By: Haider Ellis on 05-16-2025 Appearance [...] a homogeneous sandwich chemiluminescent immunoassay based on [employer] technology. PBNPon 05-16-2025 Natriuretic peptide B (Bld) [Mass/Vol] 4760 pg/mL High 0-125 [facility] Comment on above: Result Comment: NT-p roBNP results of less than 300 pg/mL effectively rules out acute congestive heart failure with 99% negative predictive value. Performed By: #### A DIFF, PBNP, TROPHS, CBC, GFR, MDW, ANEU, BMP #### [address] [address] [facility] High Sensitivity Troponin I 38 ng/L Normal 0-51 [facility] Comment on above: Result Comment: High Sensitive Troponin I Reference Ranges: Female: 0-51 ng/L Male: 0-76 ng/L Testing performed on [employer] using a homogeneous sandwich chemiluminescent immunoassay based on [employer] technology. Performed By: #### A DIFF, PBNP, TROPHS, CBC, GFR, MDW, ANEU, BMP #### [address] [address] UAon 05-16-2025 Color (U) Yellow Normal [facility] Comment on above: Performed By: #### A DIFF, PBNP, TROPHS, CBC, GFR, MDW, ANEU, BMP #### [address] [address] Glucose (U) [Mass/Vol] Negative Normal Negative [facility] Comment on above: Performed By: #### A DIFF, PBNP, TROPHS, CBC, GFR, MDW, ANEU, BMP #### [address] [address] Ketones Ql (U) Negative Normal Negative [facility] Comment on above: Performed By: #### A DIFF, PBNP, TROPHS, CBC, GFR, MDW, ANEU, BMP #### [place] [address] UA Appear Slightly Cloudy Abnormal Clear [facility] Comment on above: Performed By: #### A DIFF, PBNP, TROPHS, CBC, GFR, MDW, ANEU, BMP #### [place] [address] UA Blood Negative Normal Negative [facility] Comment on above: Performed By: #### A DIFF, PBNP, TROPHS, CBC, GFR, MDW, ANEU, BMP #### [place] [address] UA Leuk Est Negative Normal Negative [facility] Comment on above: Performed By: #### A DIFF, PBNP, TROPHS, CBC, GFR, MDW, ANEU, BMP #### [place] [address] UA Nitrite Negative Normal Negative [facility] Comment on above: Performed By: #### A DIFF, PBNP, TROPHS, CBC, GFR, MDW, ANEU, BMP #### [place] [address] UA pH 6.0 Normal 5.0 - 8.0 [facility] Comment on above: Performed By: #### A DIFF, PBNP, TROPHS, CBC, GFR, MDW, ANEU, BMP #### [place] [address] UA Protein 30 mg/dL Normal Negative [facility] Comment on above: Performed By: #### A DIFF, PBNP, TROPHS, CBC, GFR, MDW, ANEU, BMP #### [place] [address] UA Spec Grav 1.015 Normal 1.015-1.025 [facility] Comment on above: Performed By: #### A DIFF, PBNP, TROPHS, CBC, GFR, MDW, ANEU, BMP #### [place] [address] UA Specimen Type Not Given Normal [facility] Comment on above: Performed By: #### A DIFF, PBNP, TROPHS, CBC, GFR, MDW, ANEU, BMP #### [place] [address] UA Urobilinogen 0.2 E.U./dL Normal 0.2-1.0 [facility] Comment on above: Performed By: #### A DIFF, PBNP, TROPHS, CBC, GFR, MDW, ANEU, BMP #### [place] [address] Urobilinogen (U) [Mass/Vol] Negative Normal Negative [facility] Comment on above: Performed By: #### A DIFF, PBNP, TROPHS, CBC, GFR, MDW, ANEU, BMP #### [place] [address] UAMICon 05-16-2025 UA Bacteria 2+ /hpf Abnormal Negative [facility] Comment on above: Performed By: #### A DIFF, PBNP, TROPHS, CBC, GFR, MDW, ANEU, BMP #### [place] [address] UA RBC Negative Normal 0-2 [facility] Comment on above: Performed By: #### A DIFF, PBNP, TROPHS, CBC, GFR, MDW, ANEU, BMP #### [place] [address] UA Squam Epithelial 3-5 Normal 0-20 [facility] Comment on above: Performed By: #### A DIFF, PBNP, TROPHS, CBC, GFR, MDW, ANEU, BMP #### [place] [address] UA WBC 0-2 Normal 0-5 [facility] Comment on above: Performed By: #### A DIFF, PBNP, TROPHS, CBC, GFR, MDW, ANEU, BMP #### [place] [address] UA Yeast Trace Abnormal [facility] Comment on above: Performed By: #### A DIFF, PBNP, TROPHS, CBC, GFR, MDW, ANEU, BMP #### [place] [address] [place], [place] [address] XR CHEST 1 VIEWon 05-16-2025 XR CHEST [...] 8:27:46 PM Ordering Provider: BRIAN TRINIDAD Normal [facility] .Auto Diffon 03-05-2025 Basophil, Absolute 0.0 10 3/mcL Normal 0.0-0.3 [facility] Comment on above: Performed By: #### M RSAPCR #### [facility] [address] [place] [address] #### CVFLURV #### [place] [address] [place], [place] [address] Basophils/100 WBC (Bld) 0.1 % Normal 0.0-2.5 [facility] Comment on above: Performed By: #### M RSAPCR #### [place] [address] #### CVFLURV #### [address] [address] Eosinophil, Absolute 0.0 10 3/mcL Normal 0.0-0.7 [facility] Comment on above: Performed By: #### M RSAPCR #### [place] [address] #### CVFLURV #### [address] [address] Eosinophils/100 WBC (Bld) 0.0 % Normal 0.0-6.0 [facility] Comment on above: Performed By: #### M RSAPCR #### [place] [address] #### CVFLURV #### [address] [address] Lymphocyte, Absolute 0.4 10 3/mcL Low 0.9-4.3 [facility] Comment on above: Performed By: #### M RSAPCR #### [place] [address] #### CVFLURV #### [address] [address] Lymphocytes/100 WBC (Bld) 4.4 % Low 20.0-40.0 [facility] Comment on above: Performed By: #### M RSAPCR #### [place] [address] #### CVFLURV #### [address] [address] Monocyte, Absolute 0.2 10 3/mcL Normal 0.1-1.4 [facility] Comment on above: Performed By: #### M RSAPCR #### [place] [address] #### CVFLURV #### [address] [address] Monocytes/100 WBC (Bld) 2.7 % Normal 2.0-13.0 [facility] Comment on above: Performed By: #### M RSAPCR #### [address] [address] #### CVFLURV #### [address] [address] Neutrophils/100 WBC (Bld) 92.8 % High 50.0-75.0 [facility] Comment on above: Performed By: #### M RSAPCR #### [place] [address] #### CVFLURV #### [address] [address] .GFRon 03-05-2025 Estimated Glomerular Filtration Rate 88 ml/min/1.73sqm Normal [facility] Comment on above: Result Comment: Stages [...] results. Performed By: #### M RSAPCR #### [place] [address] #### CVFLURV #### [address] [address] .NEUABSon 03-05-2025 Neutrophil, Absolute 7.6 10 3/mcL Normal 2.3-8.1 [facility] Comment on above: Performed By: #### M RSAPCR #### [place] [id number] #### CVFLURV #### [address] [address] BMPon 03-05-2025 BUN/Creatinine Ratio 28 ratio High 7-27 [facility] Comment on above: Performed By: #### M RSAPCR #### [place] [address] #### CVFLURV #### [address] [address] Calcium [Mass/Vol] 8.5 mg/dL Normal 8.4-10.2 [facility] Comment on above: Performed By: #### M RSAPCR #### [place] [address] #### CVFLURV #### [place] [address] Chloride [Moles/Vol] 107 mmol/L Normal 98-107 [facility] Comment on above: Performed By: #### M RSAPCR #### [place] [address] #### CVFLURV #### [address] [address] CO2 [Moles/Vol] 29 mmol/L Normal 23-31 [facility] Comment on above: Performed By: #### M RSAPCR #### [place] [address] #### CVFLURV #### [address] [address] Creatinine [Mass/Vol] 0.74 mg/dL Normal 0.51-0.95 [facility] Comment on above: Performed By: #### M RSAPCR #### [place] [address] #### CVFLURV #### [address] [address] Electrolyte Balance 5.0 mEq/L Normal 4.0-15.0 [facility] Comment on above: Performed By: #### M RSAPCR #### [place] [address] #### CVFLURV #### [address] [address] Glucose [Mass/Vol] 160 mg/dL High 80-115 [facility] Comment on above: Performed By: #### M RSAPCR #### [place] [address] #### CVFLURV #### [address] [address] Potassium [Moles/Vol] 4.6 mmol/L Normal 3.5-5.1 [facility] Comment on above: Performed By: #### M RSAPCR #### [place] [address] #### CVFLURV #### [address] [address] Sodium [Moles/Vol] 141 mmol/L Normal 136-145 [facility] Comment on above: Performed By: #### M RSAPCR #### [place] [address] #### CVFLURV #### [address] [address] Urea nitrogen [Mass/Vol] 21 mg/dL High 7-18 [facility] Comment on above: Performed By: #### M RSAPCR #### [place] [address] #### CVFLURV #### [address] [address] CBCon 03-05-2025 Erythrocyte distribution width (RBC) [Ratio] 16.5 % High 11.5-15.5 [facility] Comment on above: Performed By: #### M RSAPCR #### [place] [address] #### CVFLURV #### [address] [address] Hematocrit (Bld) [Volume fraction] 38.1 % Normal 34.0-46.0 [facility] Comment on above: Performed By: #### M RSAPCR #### [place] [address] #### CVFLURV #### [address] [address] Hgb 12.4 G/dL Normal 12.0-16.0 [facility] Comment on above: Performed By: #### M RSAPCR #### [place] [address] #### CVFLURV #### [address] [address] MCH (RBC) [Entitic mass] 29.7 pg Normal 27.0-33.0 [facility] Comment on above: Performed By: #### M RSAPCR #### [place] [address] #### CVFLURV #### [place] [address] MCHC 32.4 G/dL Normal 32.0-36.0 [facility] Comment on above: Performed By: #### M RSAPCR #### [place] [address] #### CVFLURV #### [place] [address] MCV (RBC) [Entitic vol] 91.7 fL Normal 80.0-99.0 [facility] Comment on above: Performed By: #### M RSAPCR #### [place] [address] #### CVFLURV #### [address] [address] Platelet 318 10 3/mcL Normal 150-450 [facility] Comment on above: Performed By: #### M RSAPCR #### [place] [address] #### CVFLURV #### [address] [address] Platelet mean volume (Bld) [Entitic vol] 8.2 fL Normal 6.6-10.5 [facility] Comment on above: Performed By: #### M RSAPCR #### [place] [address] #### CVFLURV #### [address] [address] RBC 4.16 10 6/mcL Normal 4.10-5.30 [facility] Comment on above: Performed By: #### M RSAPCR #### [place] [address] #### CVFLURV #### [place] [address] WBC 8.2 10 3/mcL Normal 4.5-10.8 [facility] Comment on above: Performed By: #### M RSAPCR #### [place] [address] #### CVFLURV #### [place] [address] LABORATORYOrdered By: SYSTEM SYSTEM on 03-05-2025 Basophils [...] Basophil, Absolute 0.1 10 3/mcL Normal 0.0-0.3 [facility] Comment on above: Performed By: #### A DIFF, PBNP, TROPHS, CBC, GFR, MDW, ANEU, BMP #### [address] [address] Basophils/100 WBC (Bld) 0.9 % Normal 0.0-2.5 [facility] Comment on above: Performed By: #### A DIFF, PBNP, TROPHS, CBC, GFR, MDW, ANEU, BMP #### [address] [address] Eosinophil, Absolute 0.2 10 3/mcL Normal 0.0-0.7 [facility] Comment on above: Performed By: #### A DIFF, PBNP, TROPHS, CBC, GFR, MDW, ANEU, BMP #### [address] [address] Eosinophils/100 WBC (Bld) 1.9 % Normal 0.0-6.0 [facility] Comment on above: Performed By: #### A DIFF, PBNP, TROPHS, CBC, GFR, MDW, ANEU, BMP #### [address] [address] Lymphocyte, Absolute 1.9 10 3/mcL Normal 0.9-4.3 [facility] Comment on above: Performed By: #### A DIFF, PBNP, TROPHS, CBC, GFR, MDW, ANEU, BMP #### [address] [address] Lymphocytes/100 WBC (Bld) 22.2 % Normal 20.0-40.0 [facility] Comment on above: Performed By: #### A DIFF, PBNP, TROPHS, CBC, GFR, MDW, ANEU, BMP #### [address] [address] Monocyte, Absolute 1.0 10 3/mcL Normal 0.1-1.4 [facility] Comment on above: Performed By: #### A DIFF, PBNP, TROPHS, CBC, GFR, MDW, ANEU, BMP #### [address] [address] Monocytes/100 WBC (Bld) 11.9 % Normal 2.0-13.0 [facility] Comment on above: Performed By: #### A DIFF, PBNP, TROPHS, CBC, GFR, MDW, ANEU, BMP #### [address] [address] Neutrophils/100 WBC (Bld) 63.1 % Normal 50.0-75.0 [facility] Comment on above: Performed By: #### A DIFF, PBNP, TROPHS, CBC, GFR, MDW, ANEU, BMP #### [address] [address] .GFRon 03-04-2025 Estimated Glomerular Filtration Rate 75 ml/min/1.73sqm Normal [facility] Comment on above: Result Comment: Stages [...] results. Performed By: #### M RSAPCR #### [place] [id number] #### CVFLURV #### [address] [address] .MDWon 03-04-2025 Monocyte Distribution Width 17.56 Normal 0.00-20.00 [facility] Comment on above: Result Comment: For ED adult patients suspected of sepsis, MDW<=20.0 does not rule out sepsis or risk of sepsis Performed By: #### M RSAPCR #### [place] [address] #### CVFLURV #### [address] [address] .NEUABSon 03-04-2025 Neutrophil, Absolute 5.3 10 3/mcL Normal 2.3-8.1 [facility] Comment on above: Performed By: #### M RSAPCR #### [place] [address] #### CVFLURV #### [address] [address] BMPon 03-04-2025 BUN/Creatinine Ratio 18 ratio Normal 7-27 [facility] Comment on above: Performed By: #### M RSAPCR #### [place] [address] #### CVFLURV #### [address] [address] Calcium [Mass/Vol] 9.0 mg/dL Normal 8.4-10.2 [facility] Comment on above: Performed By: #### M RSAPCR #### [place] [address] #### CVFLURV #### [address] [address] Chloride [Moles/Vol] 106 mmol/L Normal 98-107 [facility] Comment on above: Performed By: #### M RSAPCR #### [place] [address] #### CVFLURV #### [address] [address] CO2 [Moles/Vol] 34 mmol/L High 23-31 [facility] Comment on above: Performed By: #### M RSAPCR #### [place] [address] #### CVFLURV #### [address] [address] Creatinine [Mass/Vol] 0.84 mg/dL Normal 0.51-0.95 [facility] Comment on above: Performed By: #### M RSAPCR #### [place] [address] #### CVFLURV #### [address] [address] Electrolyte Balance 3.0 mEq/L Low 4.0-15.0 [facility] Comment on above: Performed By: #### M RSAPCR #### [place] [address] #### CVFLURV #### [address] [address] Glucose [Mass/Vol] 137 mg/dL High 80-115 [facility] Comment on above: Performed By: #### M RSAPCR #### [place] [address] #### CVFLURV #### [address] [address] Potassium [Moles/Vol] 4.1 mmol/L Normal 3.5-5.1 [facility] Comment on above: Performed By: #### M RSAPCR #### [place] [address] #### CVFLURV #### [address] [address] Sodium [Moles/Vol] 143 mmol/L Normal 136-145 [facility] Comment on above: Performed By: #### M RSAPCR #### [address] [address] #### CVFLURV #### [address] [address] Urea nitrogen [Mass/Vol] 15 mg/dL Normal 7-18 [facility] Comment on above: Performed By: #### M RSAPCR #### [address] [address] #### CVFLURV #### [address] [address] CBCon 03-04-2025 Erythrocyte distribution width (RBC) [Ratio] 16.9 % High 11.5-15.5 [facility] Comment on above: Performed By: #### A DIFF, PBNP, TROPHS, CBC, GFR, MDW, ANEU, BMP #### [address] [address] Hematocrit (Bld) [Volume fraction] 45.7 % Normal 34.0-46.0 [facility] Comment on above: Performed By: #### A DIFF, PBNP, TROPHS, CBC, GFR, MDW, ANEU, BMP #### [address] [address] Hgb 14.9 G/dL Normal 12.0-16.0 [facility] Comment on above: Performed By: #### A DIFF, PBNP, TROPHS, CBC, GFR, MDW, ANEU, BMP #### [address] [address] MCH (RBC) [Entitic mass] 30.0 pg Normal 27.0-33.0 [facility] Comment on above: Performed By: #### A DIFF, PBNP, TROPHS, CBC, GFR, MDW, ANEU, BMP #### [address] [address] MCHC 32.5 G/dL Normal 32.0-36.0 [facility] Comment on above: Performed By: #### A DIFF, PBNP, TROPHS, CBC, GFR, MDW, ANEU, BMP #### [address] [address] MCV (RBC) [Entitic vol] 92.2 fL Normal 80.0-99.0 [facility] Comment on above: Performed By: #### A DIFF, PBNP, TROPHS, CBC, GFR, MDW, ANEU, BMP #### [address] [address] Platelet 369 10 3/mcL Normal 150-450 [facility] Comment on above: Performed By: #### A DIFF, PBNP, TROPHS, CBC, GFR, MDW, ANEU, BMP #### [address] [address] Platelet mean volume (Bld) [Entitic vol] 8.1 fL Normal 6.6-10.5 [facility] Comment on above: Performed By: #### A DIFF, PBNP, TROPHS, CBC, GFR, MDW, ANEU, BMP #### [address] [address] RBC 4.95 10 6/mcL Normal 4.10-5.30 [facility] Comment on above: Performed By: #### A DIFF, PBNP, TROPHS, CBC, GFR, MDW, ANEU, BMP #### [address] [address] WBC 8.4 10 3/mcL Normal 4.5-10.8 [facility] Comment on above: Performed By: #### A DIFF, PBNP, TROPHS, CBC, GFR, MDW, ANEU, BMP #### [address] [address] CVFLURVon 03-04-2025 FLU A PCR Negative Normal Negative [facility] Comment on above: Result Comment: [place] [id number] Performed By: #### M RSAPCR #### [facility] [address] [place] [address] #### CVFLURV #### [address] [address] FLU B PCR Negative Normal Negative [facility] Comment on above: Result Comment: [place] [id number] Performed By: #### M RSAPCR #### [address] [address] #### CVFLURV #### [address] [address] RSV PCR Negative Normal Negative [facility] Comment on above: Result Comment: Note s [id number] Performed By: #### M RSAPCR #### [address] [address] #### CVFLURV #### [place] [address] [place], [place] [address] SARS-CoV-2 (COVID-19) RNA IVANA+probe Ql (Unsp spec) Negative Normal Negative [facility] Comment on above: Result Comment: Note s [id number] This test has been authorized by FDA [...] results. Performed By: #### M RSAPCR #### [address] [address] #### CVFLURV #### [place] [address] [place] [id number] LABORATORYOrdered By: Guillermo Lebron on 03-04-2025 Adenovirus DNA IVANA+non-probe Ql (Nph) Not Detected *NA* (03/04/25 10:09 AM) Invalid Interpretation Code Not Detected AH Auto Viro/Sero SS B. parapertussis [id number] DNA IVANA+non-probe Ql (Nph) Not Detected *NA* [...] his assay has been validated in the [facility] for use with nasopharyngeal specimens in [facility] If a non-validated specimen or test collection [...] Comment on above: Result Comment: [place] [id number] FLUBV RNA IVANA+probe Ql (Resp) Negative 10 (03/04/25 10:09 AM) Normal Negative [facility] Auto Viro/Sero SS Comment on above: Result Comment: [place] [id number] RSV PCR Negative 11 (03/04/25 10:09 AM) Normal Negative [facility] Auto Viro/Sero SS Comment on above: Result Comment: [place] [id number] SARS-CoV-2 (COVID-19) RNA IVANA+probe Ql (Resp) Negative 7, 8 (03/04/25 10:09 AM) Normal Negative [facility] Auto Viro/Sero SS Comment on above: Result Comment: Note [place] [id number] Interpretive Data: T his test has been [...] ng/L Male: 0-76 ng/L Testing performed on Auxogyn using a homogeneous sandwich chemiluminescent immunoassay based on [employer] technology. Urea nitrogen [Mass/Vol] 15 mg/dL Normal 7 - 18 mg/dL AO ADM SS Urea nitrogen/Creatinine [Mass ratio] 18 ratio Normal 7 - 27 ratio AO ADM SS WBC (Bld) [#/Vol] 8.4 103/mcL Normal 4.5 - 10.8 10^3/mcL AO Workflow SS PBNPon 03-04-2025 Natriuretic peptide B (Bld) [Mass/Vol] 2664 pg/mL High 0-125 [facility] Comment on above: Result Comment: NT-p roBNP results of less than 300 pg/mL effectively rules out acute congestive heart failure with 99% negative predictive value. Performed By: #### A DIFF, PBNP, TROPHS, CBC, GFR, MDW, ANEU, BMP #### [place] [address] RESCVIDon 03-04-2025 Adenovirus Not detected Normal Not Detected [facility] Comment on above: Performed By: #### M RSAPCR #### [place] [address] #### CVFLURV #### [place] [address] Bordetella Parapertussis Not detected Normal Not Detected [facility] Comment on above: Performed By: #### M RSAPCR #### [place] [address] #### CVFLURV #### [place] [address] Bordetella Pertussis Not detected Normal Not Detected [facility] Comment on above: Performed By: #### M RSAPCR #### [place] [address] #### CVFLURV #### [address] [address] Chlamydophila pneumoniae Not detected Normal Not Detected [facility] Comment on above: Performed By: #### M RSAPCR #### [place] [address] #### CVFLURV #### [place] [address] Coronavirus 229E (Not COVID-19) Not detected Normal Not Detected [facility] Comment on above: Performed By: #### M RSAPCR #### [place] [address] #### CVFLURV #### [address] [address] Coronavirus HKU1 (Not COVID-19) Not detected Normal Not Detected [facility] Comment on above: Performed By: #### M RSAPCR #### [place] [address] #### CVFLURV #### [address] [address] Coronavirus NL63 (Not COVID-19) Not detected Normal Not Detected [facility] Comment on above: Performed By: #### M RSAPCR #### [place] [address] #### CVFLURV #### [address] [address] Coronavirus OC43 (Not COVID-19) Not detected Normal Not Detected [facility] Comment on above: Performed By: #### M RSAPCR #### [place] [address] #### CVFLURV #### [address] [address] Human Metapneumovirus Not detected Normal Not Detected [facility] Comment on above: Performed By: #### M RSAPCR #### [place] [address] #### CVFLURV #### [address] [address] Influenza A Not detected Normal Not Detected [facility] Comment on above: Performed By: #### M RSAPCR #### [place] [id number] #### CVFLURV #### [address] [address] Influenza B Not detected Normal Not Detected [facility] Comment on above: Performed By: #### M RSAPCR #### [address] [place], [place] [address] #### CVFLURV #### [address] [address] Mycoplasma pneumoniae Not detected Normal Not Detected [facility] Comment on above: Performed By: #### M RSAPCR #### [facility] [address] [place] [address] #### CVFLURV #### [address] [address] Parainfluenza 1 Not detected Normal Not Detected [facility] Comment on above: Performed By: #### M RSAPCR #### [place] [id number] #### CVFLURV #### [address] [address] Parainfluenza 2 Not detected Normal Not Detected [facility] Comment on above: Performed By: #### M RSAPCR #### [place] [address] #### CVFLURV #### [address] [address] Parainfluenza 3 Not detected Normal Not Detected [facility] Comment on above: Performed By: #### M RSAPCR #### [address] [address] #### CVFLURV #### [address] [address] Parainfluenza 4 Not detected Normal Not Detected [facility] Comment on above: Performed By: #### M RSAPCR #### [facility] [address] [place] [address] #### CVFLURV #### [address] [address] Respiratory Syncytial Virus Not detected Normal Not Detected [facility] Comment on above: Performed By: #### M RSAPCR #### [address] [address] #### CVFLURV #### [address] [address] Rhinovirus/Enterovirus Not detected Normal Not Detected [facility] Comment on above: Performed By: #### M RSAPCR #### [address] [address] #### CVFLURV #### [address] [address] SARS-CoV-2 (COVID-19) RNA IVANA+probe Ql (Unsp spec) Not detected Normal Not Detected [facility] Comment on above: Result Comment: This assay has been validated in the [facility] for use with nasopharyngeal specimens in [facility] If a non-validated specimen or test collection [...] authorities. Performed By: #### M RSAPCR #### [address] [address] #### CVFLURV #### [place] [address] [place], [place] [address] [facility] 03-04-2025 High Sensitivity Troponin I 33 ng/L Normal 0-51 [facility] Comment on above: Result Comment: High Sensitive Troponin I Reference Ranges: Female: 0-51 ng/L Male: 0-76 ng/L Testing performed on Auxogyn using a homogeneous sandwich chemiluminescent immunoassay based on [employer] technology. Performed By: #### M RSAPCR #### [facility] [address] [place] [address] #### CVFLURV #### [place] [address] [place], [place] [address] XR CHEST 1 VIEWon 03-04-2025 XR CHEST [...] 6:41:45 AM Ordering Provider: EMMANUEL KILLIAN Normal [facility] MYCOon 02-21-2025 Mycoplasma IgM Negative [facility] Comment on above: Result Comment: INTE [...] TROPHS, CBC, GFR, MDW, ANEU, BMP #### [place] [address] [place], [place] [address] .Auto Diffon 02-20-2025 Basophil, Absolute 0.1 10 3/mcL Normal 0.0-0.3 [facility] Comment on above: Performed By: #### A DIFF, PBNP, TROPHS, CBC, GFR, MDW, ANEU, BMP #### [address] [address] Basophils/100 WBC (Bld) 1.4 % Normal 0.0-2.5 [facility] Comment on above: Performed By: #### A DIFF, PBNP, TROPHS, CBC, GFR, MDW, ANEU, BMP #### [address] [address] Eosinophil, Absolute 0.2 10 3/mcL Normal 0.0-0.7 [facility] Comment on above: Performed By: #### A DIFF, PBNP, TROPHS, CBC, GFR, MDW, ANEU, BMP #### [address] [address] Eosinophils/100 WBC (Bld) 2.3 % Normal 0.0-6.0 [facility] Comment on above: Performed By: #### A DIFF, PBNP, TROPHS, CBC, GFR, MDW, ANEU, BMP #### [address] [address] Lymphocyte, Absolute 1.9 10 3/mcL Normal 0.9-4.3 [facility] Comment on above: Performed By: #### A DIFF, PBNP, TROPHS, CBC, GFR, MDW, ANEU, BMP #### [address] [address] Lymphocytes/100 WBC (Bld) 28.3 % Normal 20.0-40.0 [facility] Comment on above: Performed By: #### A DIFF, PBNP, TROPHS, CBC, GFR, MDW, ANEU, BMP #### [address] [address] Monocyte, Absolute 1.0 10 3/mcL Normal 0.1-1.4 [facility] Comment on above: Performed By: #### A DIFF, PBNP, TROPHS, CBC, GFR, MDW, ANEU, BMP #### [address] [address] Monocytes/100 WBC (Bld) 14.2 % High 2.0-13.0 [facility] Comment on above: Performed By: #### A DIFF, PBNP, TROPHS, CBC, GFR, MDW, ANEU, BMP #### [place] [address] [place], [place] [address] Neutrophils/100 WBC (Bld) 53.8 % Normal 50.0-75.0 [facility] Comment on above: Performed By: #### A DIFF, PBNP, TROPHS, CBC, GFR, MDW, ANEU, BMP #### [address] [address] .GFRon 02-20-2025 Estimated Glomerular Filtration Rate 88 ml/min/1.73sqm Normal [facility] Comment on above: Result Comment: Stages [...] TROPHS, CBC, GFR, MDW, ANEU, BMP #### [address] [address] .NEUABSon 02-20-2025 Neutrophil, Absolute 3.7 10 3/mcL Normal 2.3-8.1 [facility] Comment on above: Performed By: #### A DIFF, PBNP, TROPHS, CBC, GFR, MDW, ANEU, BMP #### [address] [address] BMPon 02-20-2025 BUN/Creatinine Ratio 22 ratio Normal 7-27 [facility] Comment on above: Performed By: #### A DIFF, PBNP, TROPHS, CBC, GFR, MDW, ANEU, BMP #### [address] [address] Calcium [Mass/Vol] 8.1 mg/dL Low 8.4-10.2 [facility] Comment on above: Performed By: #### A DIFF, PBNP, TROPHS, CBC, GFR, MDW, ANEU, BMP #### [address] [address] Chloride [Moles/Vol] 107 mmol/L Normal 98-107 [facility] Comment on above: Performed By: #### A DIFF, PBNP, TROPHS, CBC, GFR, MDW, ANEU, BMP #### [address] [address] CO2 [Moles/Vol] 32 mmol/L High 23-31 [facility] Comment on above: Performed By: #### A DIFF, PBNP, TROPHS, CBC, GFR, MDW, ANEU, BMP #### [address] [address] Creatinine [Mass/Vol] 0.74 mg/dL Normal 0.55-1.02 [facility] Comment on above: Result Comment: Test ing performed on Siemens Dimension EXL analyzer using a modified kinetic [place] technique. Performed By: #### A DIFF, PBNP, TROPHS, CBC, GFR, MDW, ANEU, BMP #### [address] [address] Electrolyte Balance 3.0 mEq/L Low 4.0-15.0 [facility] Comment on above: Performed By: #### A DIFF, PBNP, TROPHS, CBC, GFR, MDW, ANEU, BMP #### [address] [address] Glucose [Mass/Vol] 105 mg/dL Normal 80-115 [facility] Comment on above: Performed By: #### A DIFF, PBNP, TROPHS, CBC, GFR, MDW, ANEU, BMP #### [address] [address] Potassium [Moles/Vol] 3.9 mmol/L Normal 3.5-5.1 [facility] Comment on above: Performed By: #### A DIFF, PBNP, TROPHS, CBC, GFR, MDW, ANEU, BMP #### [place] [address] [place] [id number] Sodium [Moles/Vol] 142 mmol/L Normal 136-145 [facility] Comment on above: Performed By: #### A DIFF, PBNP, TROPHS, CBC, GFR, MDW, ANEU, BMP #### [place] [id number] Urea nitrogen [Mass/Vol] 16 mg/dL Normal 7-18 [facility] Comment on above: Performed By: #### A DIFF, PBNP, TROPHS, CBC, GFR, MDW, ANEU, BMP #### [place] [id number] CBCon 02-20-2025 Erythrocyte distribution width (RBC) [Ratio] 16.1 % High 11.5-15.5 [facility] Comment on above: Performed By: #### A DIFF, PBNP, TROPHS, CBC, GFR, MDW, ANEU, BMP #### [address] [address] Hematocrit (Bld) [Volume fraction] 37.9 % Normal 34.0-46.0 [facility] Comment on above: Performed By: #### A DIFF, PBNP, TROPHS, CBC, GFR, MDW, ANEU, BMP #### [address] [address] Hgb 12.2 G/dL Normal 12.0-16.0 [facility] Comment on above: Performed By: #### A DIFF, PBNP, TROPHS, CBC, GFR, MDW, ANEU, BMP #### [address] [address] MCH (RBC) [Entitic mass] 29.4 pg Normal 27.0-33.0 [facility] Comment on above: Performed By: #### A DIFF, PBNP, TROPHS, CBC, GFR, MDW, ANEU, BMP #### [address] [address] MCHC 32.2 G/dL Normal 32.0-36.0 [facility] Comment on above: Performed By: #### A DIFF, PBNP, TROPHS, CBC, GFR, MDW, ANEU, BMP #### [address] [address] MCV (RBC) [Entitic vol] 91.2 fL Normal 80.0-99.0 [facility] Comment on above: Performed By: #### A DIFF, PBNP, TROPHS, CBC, GFR, MDW, ANEU, BMP #### [address] [address] Platelet 304 10 3/mcL Normal 150-450 [facility] Comment on above: Performed By: #### A DIFF, PBNP, TROPHS, CBC, GFR, MDW, ANEU, BMP #### [address] [address] Platelet mean volume (Bld) [Entitic vol] 8.4 fL Normal 6.6-10.5 [facility] Comment on above: Performed By: #### A DIFF, PBNP, TROPHS, CBC, GFR, MDW, ANEU, BMP #### [address] [address] RBC 4.16 10 6/mcL Normal 4.10-5.30 [facility] Comment on above: Performed By: #### A DIFF, PBNP, TROPHS, CBC, GFR, MDW, ANEU, BMP #### [address] [address] WBC 6.9 10 3/mcL Normal 4.5-10.8 [facility] Comment on above: Performed By: #### A DIFF, PBNP, TROPHS, CBC, GFR, MDW, ANEU, BMP #### [address] [address] MGon 02-20-2025 Magnesium [Mass/Vol] 1.6 mg/dL Low 1.8-2.4 [facility] Comment on above: Performed By: #### A DIFF, PBNP, TROPHS, CBC, GFR, MDW, ANEU, BMP #### [address] [address] MYCOon 02-20-2025 Mycoplasma IgG Positive Normal [facility] Comment on above: Result Comment: INTE RPRETATION OF MYCOPLASMA IgG BY EIA: Negative: No detectable M. pneumoniae IgG antibody. Positive: Mycoplasma pneumoniae IgG antibody Detected. Equivocal: Equivocal for IgG antibodies to Mycoplasma pneumoniae. Suggest repeat testing in 10-14 days. Performed By: #### A DIFF, PBNP, TROPHS, CBC, GFR, MDW, ANEU, BMP #### [address] [address] .Auto Diffon 02-19-2025 Basophil, Absolute 0.1 10 3/mcL Normal 0.0-0.3 [facility] Comment on above: Performed By: #### A DIFF, PBNP, TROPHS, CBC, GFR, MDW, ANEU, BMP #### [address] [address] Basophils/100 WBC (Bld) 0.6 % Normal 0.0-2.5 [facility] Comment on above: Performed By: #### A DIFF, PBNP, TROPHS, CBC, GFR, MDW, ANEU, BMP #### [address] [address] Eosinophil, Absolute 0.1 10 3/mcL Normal 0.0-0.7 [facility] Comment on above: Performed By: #### A DIFF, PBNP, TROPHS, CBC, GFR, MDW, ANEU, BMP #### [address] [address] Eosinophils/100 WBC (Bld) 0.6 % Normal 0.0-6.0 [facility] Comment on above: Performed By: #### A DIFF, PBNP, TROPHS, CBC, GFR, MDW, ANEU, BMP #### [address] [address] Lymphocyte, Absolute 1.7 10 3/mcL Normal 0.9-4.3 [facility] Comment on above: Performed By: #### A DIFF, PBNP, TROPHS, CBC, GFR, MDW, ANEU, BMP #### [address] [address] Lymphocytes/100 WBC (Bld) 17.7 % Low 20.0-40.0 [facility] Comment on above: Performed By: #### A DIFF, PBNP, TROPHS, CBC, GFR, MDW, ANEU, BMP #### [address] [address] Monocyte, Absolute 0.8 10 3/mcL Normal 0.1-1.4 [facility] Comment on above: Performed By: #### A DIFF, PBNP, TROPHS, CBC, GFR, MDW, ANEU, BMP #### [address] [address] Monocytes/100 WBC (Bld) 8.0 % Normal 2.0-13.0 [facility] Comment on above: Performed By: #### A DIFF, PBNP, TROPHS, CBC, GFR, MDW, ANEU, BMP #### [address] [address] Neutrophils/100 WBC (Bld) 73.1 % Normal 50.0-75.0 [facility] Comment on above: Performed By: #### A DIFF, PBNP, TROPHS, CBC, GFR, MDW, ANEU, BMP #### [address] [address] Basophil, Absolute 0.1 10 3/mcL Normal 0.0-0.3 [facility] Comment on above: Performed By: #### A DIFF, PBNP, TROPHS, CBC, GFR, MDW, ANEU, BMP #### [address] [address] Basophils/100 WBC (Bld) 0.7 % Normal 0.0-2.5 [facility] Comment on above: Performed By: #### A DIFF, PBNP, TROPHS, CBC, GFR, MDW, ANEU, BMP #### [address] [address] Eosinophil, Absolute 0.2 10 3/mcL Normal 0.0-0.7 [facility] Comment on above: Performed By: #### A DIFF, PBNP, TROPHS, CBC, GFR, MDW, ANEU, BMP #### [address] [address] Eosinophils/100 WBC (Bld) 1.7 % Normal 0.0-6.0 [facility] Comment on above: Performed By: #### A DIFF, PBNP, TROPHS, CBC, GFR, MDW, ANEU, BMP #### [address] [address] Lymphocyte, Absolute 2.3 10 3/mcL Normal 0.9-4.3 [facility] Comment on above: Performed By: #### A DIFF, PBNP, TROPHS, CBC, GFR, MDW, ANEU, BMP #### [address] [address] Lymphocytes/100 WBC (Bld) 21.0 % Normal 20.0-40.0 [facility] Comment on above: Performed By: #### A DIFF, PBNP, TROPHS, CBC, GFR, MDW, ANEU, BMP #### [address] [address] Monocyte, Absolute 1.0 10 3/mcL Normal 0.1-1.4 [facility] Comment on above: Performed By: #### A DIFF, PBNP, TROPHS, CBC, GFR, MDW, ANEU, BMP #### [address] [address] Monocytes/100 WBC (Bld) 9.2 % Normal 2.0-13.0 [facility] Comment on above: Performed By: #### A DIFF, PBNP, TROPHS, CBC, GFR, MDW, ANEU, BMP #### [address] [address] Neutrophils/100 WBC (Bld) 67.4 % Normal 50.0-75.0 [facility] Comment on above: Performed By: #### A DIFF, PBNP, TROPHS, CBC, GFR, MDRoshan, MARK, BMP #### [address] [address] .GFRon 02-19-2025 Estimated Glomerular Filtration Rate 90 ml/min/1.73sqm Normal [facility] Comment on above: Result Comment: Stages [...] TROPHS, CBC, GFR, MDRoshan, MARK, BMP #### [address] [address] Estimated Glomerular Filtration Rate 81 ml/min/1.73sqm Normal [facility] Comment on above: Result Comment: Stages [...] TROPHS, CBC, GFR, MDW, ANEU, BMP #### [address] [address] .MDWon 02-19-2025 Monocyte Distribution Width 18.70 Normal 0.00-20.00 [facility] Comment on above: Result Comment: For ED adult patients suspected of sepsis, MDW<=20.0 does not rule out sepsis or risk of sepsis Performed By: #### A DIFF, PBNP, TROPHS, CBC, GFR, MDW, ANEU, BMP #### [address] [address] .NEUABSon 02-19-2025 Neutrophil, Absolute 7.2 10 3/mcL Normal 2.3-8.1 [facility] Comment on above: Performed By: #### A DIFF, PBNP, TROPHS, CBC, GFR, MDW, ANEU, BMP #### [address] [address] Neutrophil, Absolute 7.3 10 3/mcL Normal 2.3-8.1 [facility] Comment on above: Performed By: #### A DIFF, PBNP, TROPHS, CBC, GFR, MDW, ANEU, BMP #### [address] [address] BMPon 02-19-2025 BUN/Creatinine Ratio 19 ratio Normal 7-27 [facility] Comment on above: Performed By: #### A DIFF, PBNP, TROPHS, CBC, GFR, MDW, ANEU, BMP #### [address] [address] Calcium [Mass/Vol] 8.2 mg/dL Low 8.4-10.2 [facility] Comment on above: Performed By: #### A DIFF, PBNP, TROPHS, CBC, GFR, MDW, ANEU, BMP #### [address] [address] Chloride [Moles/Vol] 108 mmol/L High 98-107 [facility] Comment on above: Performed By: #### A DIFF, PBNP, TROPHS, CBC, GFR, MDW, ANEU, BMP #### [address] [address] CO2 [Moles/Vol] 28 mmol/L Normal 23-31 [facility] Comment on above: Performed By: #### A DIFF, PBNP, TROPHS, CBC, GFR, MDW, ANEU, BMP #### [address] [address] Creatinine [Mass/Vol] 0.72 mg/dL Normal 0.55-1.02 [facility] Comment on above: Result Comment: Test ing performed on Siemens Dimension EXL analyzer using a modified kinetic [place] technique. Performed By: #### A DIFF, PBNP, TROPHS, CBC, GFR, MDW, ANEU, BMP #### [address] [address] Electrolyte Balance 7.0 mEq/L Normal 4.0-15.0 [facility] Comment on above: Performed By: #### A DIFF, PBNP, TROPHS, CBC, GFR, MDW, ANEU, BMP #### [address] [address] Glucose [Mass/Vol] 132 mg/dL High 80-115 [facility] Comment on above: Performed By: #### A DIFF, PBNP, TROPHS, CBC, GFR, MDW, ANEU, BMP #### [address] [address] Potassium [Moles/Vol] 4.7 mmol/L Normal 3.5-5.1 [facility] Comment on above: Performed By: #### A DIFF, PBNP, TROPHS, CBC, GFR, MDW, ANEU, BMP #### [address] [address] Sodium [Moles/Vol] 143 mmol/L Normal 136-145 [facility] Comment on above: Performed By: #### A DIFF, PBNP, TROPHS, CBC, GFR, MDW, ANEU, BMP #### [address] [address] Urea nitrogen [Mass/Vol] 14 mg/dL Normal 7-18 [facility] Comment on above: Performed By: #### A DIFF, PBNP, TROPHS, CBC, GFR, MDW, ANEU, BMP #### [address] [address] CBCon 02-19-2025 Erythrocyte distribution width (RBC) [Ratio] 15.7 % High 11.5-15.5 [facility] Comment on above: Performed By: #### A DIFF, PBNP, TROPHS, CBC, GFR, MDW, ANEU, BMP #### [place] [address] Hematocrit (Bld) [Volume fraction] 38.8 % Normal 34.0-46.0 [facility] Comment on above: Performed By: #### A DIFF, PBNP, TROPHS, CBC, GFR, MDW, ANEU, BMP #### [place] [address] Hgb 12.6 G/dL Normal 12.0-16.0 [facility] Comment on above: Performed By: #### A DIFF, PBNP, TROPHS, CBC, GFR, MDW, ANEU, BMP #### [place] [address] MCH (RBC) [Entitic mass] 30.0 pg Normal 27.0-33.0 [facility] Comment on above: Performed By: #### A DIFF, PBNP, TROPHS, CBC, GFR, MDW, ANEU, BMP #### [place] [address] MCHC 32.5 G/dL Normal 32.0-36.0 [facility] Comment on above: Performed By: #### A DIFF, PBNP, TROPHS, CBC, GFR, MDW, ANEU, BMP #### [place] [id number] MCV (RBC) [Entitic vol] 92.2 fL Normal 80.0-99.0 [facility] Comment on above: Performed By: #### A DIFF, PBNP, TROPHS, CBC, GFR, MDW, ANEU, BMP #### [address] [address] Platelet 310 10 3/mcL Normal 150-450 [facility] Comment on above: Performed By: #### A DIFF, PBNP, TROPHS, CBC, GFR, MDW, ANEU, BMP #### [address] [address] Platelet mean volume (Bld) [Entitic vol] 8.6 fL Normal 6.6-10.5 [facility] Comment on above: Performed By: #### A DIFF, PBNP, TROPHS, CBC, GFR, MDW, ANEU, BMP #### [address] [address] RBC 4.21 10 6/mcL Normal 4.10-5.30 [facility] Comment on above: Performed By: #### A DIFF, PBNP, TROPHS, CBC, GFR, MDW, ANEU, BMP #### [address] [address] WBC 9.8 10 3/mcL Normal 4.5-10.8 [facility] Comment on above: Performed By: #### A DIFF, PBNP, TROPHS, CBC, GFR, MDW, ANEU, BMP #### [address] [address] Erythrocyte distribution width (RBC) [Ratio] 16.0 % High 11.5-15.5 [facility] Comment on above: Performed By: #### A DIFF, PBNP, TROPHS, CBC, GFR, MDW, ANEU, BMP #### [address] [address] Hematocrit (Bld) [Volume fraction] 39.3 % Normal 34.0-46.0 [facility] Comment on above: Performed By: #### A DIFF, PBNP, TROPHS, CBC, GFR, MDW, ANEU, BMP #### [address] [address] Hgb 12.8 G/dL Normal 12.0-16.0 [facility] Comment on above: Performed By: #### A DIFF, PBNP, TROPHS, CBC, GFR, MDW, ANEU, BMP #### [address] [address] MCH (RBC) [Entitic mass] 29.7 pg Normal 27.0-33.0 [facility] Comment on above: Performed By: #### A DIFF, PBNP, TROPHS, CBC, GFR, MDW, ANEU, BMP #### [address] [address] MCHC 32.6 G/dL Normal 32.0-36.0 [facility] Comment on above: Performed By: #### A DIFF, PBNP, TROPHS, CBC, GFR, MDW, ANEU, BMP #### [place] [address] MCV (RBC) [Entitic vol] 91.1 fL Normal 80.0-99.0 [facility] Comment on above: Performed By: #### A DIFF, PBNP, TROPHS, CBC, GFR, MDW, ANEU, BMP #### [address] [address] Platelet 327 10 3/mcL Normal 150-450 [facility] Comment on above: Performed By: #### A DIFF, PBNP, TROPHS, CBC, GFR, MDW, ANEU, BMP #### [place] [address] Platelet mean volume (Bld) [Entitic vol] 8.2 fL Normal 6.6-10.5 [facility] Comment on above: Performed By: #### A DIFF, PBNP, TROPHS, CBC, GFR, MDW, ANEU, BMP #### [place] [address] RBC 4.31 10 6/mcL Normal 4.10-5.30 [facility] Comment on above: Performed By: #### A DIFF, PBNP, TROPHS, CBC, GFR, MDW, ANEU, BMP #### [place] [address] WBC 10.8 10 3/mcL Normal 4.5-10.8 [facility] Comment on above: Performed By: #### A DIFF, PBNP, TROPHS, CBC, GFR, MDW, ANEU, BMP #### [address] [address] CMPon 02-19-2025 Albumin Level 3.3 G/dL Low 3.4-4.8 [facility] Comment on above: Performed By: #### A DIFF, PBNP, TROPHS, CBC, GFR, MDW, ANEU, BMP #### [address] [address] Albumin/Globulin [Mass ratio] 1.0 {ratio} Low 1.1-2.5 [facility] Comment on above: Performed By: #### A DIFF, PBNP, TROPHS, CBC, GFR, MDW, ANEU, BMP #### [address] [address] ALP [Catalytic activity/Vol] 104 U/L Normal 40-135 [facility] Comment on above: Performed By: #### A DIFF, PBNP, TROPHS, CBC, GFR, MDW, ANEU, BMP #### [address] [address] ALT [Catalytic activity/Vol] 36 U/L Normal 14-59 [facility] Comment on above: Performed By: #### A DIFF, PBNP, TROPHS, CBC, GFR, MDW, ANEU, BMP #### [address] [address] AST [Catalytic activity/Vol] 38 U/L Normal 10-40 [facility] Comment on above: Performed By: #### A DIFF, PBNP, TROPHS, CBC, GFR, MDW, ANEU, BMP #### [address] [address] Bili Total 0.2 mg/dL Normal 0.2-1.0 [facility] Comment on above: Result Comment: Use of this assay is not recommended for patients undergoing treatment with eltrombopag due to the potential for falsely elevated results. Performed By: #### A DIFF, PBNP, TROPHS, CBC, GFR, MDW, ANEU, BMP #### [address] [address] BUN/Creatinine Ratio 19 ratio Normal 7-27 [facility] Comment on above: Performed By: #### A DIFF, PBNP, TROPHS, CBC, GFR, MDW, ANEU, BMP #### [address] [address] Calcium [Mass/Vol] 8.2 mg/dL Low 8.4-10.2 [facility] Comment on above: Performed By: #### A DIFF, PBNP, TROPHS, CBC, GFR, MDW, ANEU, BMP #### [address] [address] Chloride [Moles/Vol] 106 mmol/L Normal 98-107 [facility] Comment on above: Performed By: #### A DIFF, PBNP, TROPHS, CBC, GFR, MDW, ANEU, BMP #### [address] [address] CO2 [Moles/Vol] 32 mmol/L High 23-31 [facility] Comment on above: Performed By: #### A DIFF, PBNP, TROPHS, CBC, GFR, MDW, ANEU, BMP #### [address] [address] Creatinine [Mass/Vol] 0.79 mg/dL Normal 0.55-1.02 [facility] Comment on above: Result Comment: Test ing performed on Siemens Dimension EXL analyzer using a modified kinetic [place] technique. Performed By: #### A DIFF, PBNP, TROPHS, CBC, GFR, MDW, ANEU, BMP #### [address] [address] Electrolyte Balance 4.0 mEq/L Normal 4.0-15.0 [facility] Comment on above: Performed By: #### A DIFF, PBNP, TROPHS, CBC, GFR, MDW, ANEU, BMP #### [address] [address] Globulin 3.2 G/dL Normal 1.5-3.8 [facility] Comment on above: Performed By: #### A DIFF, PBNP, TROPHS, CBC, GFR, MDW, ANEU, BMP #### [address] [address] Glucose [Mass/Vol] 114 mg/dL Normal 80-115 [facility] Comment on above: Performed By: #### A DIFF, PBNP, TROPHS, CBC, GFR, MDW, ANEU, BMP #### [address] [address] Potassium [Moles/Vol] 4.2 mmol/L Normal 3.5-5.1 [facility] Comment on above: Performed By: #### A DIFF, PBNP, TROPHS, CBC, GFR, MDW, ANEU, BMP #### [address] [address] Sodium [Moles/Vol] 142 mmol/L Normal 136-145 [facility] Comment on above: Performed By: #### A DIFF, PBNP, TROPHS, CBC, GFR, MDW, ANEU, BMP #### [address] [address] Total Protein 6.5 G/dL Normal 6.4-8.2 [facility] Comment on above: Performed By: #### A DIFF, PBNP, TROPHS, CBC, GFR, MDW, ANEU, BMP #### [address] [address] Urea nitrogen [Mass/Vol] 15 mg/dL Normal 7-18 [facility] Comment on above: Performed By: #### A DIFF, PBNP, TROPHS, CBC, GFR, MDW, ANEU, BMP #### [address] [address] CVFLURVon 02-19-2025 FLU A PCR Negative Normal Negative [facility] Comment on above: Performed By: #### M RSAPCR #### [place] [address] #### CVFLURV #### [place] [address] FLU B PCR Negative Normal Negative [facility] Comment on above: Performed By: #### M RSAPCR #### [address] [address] #### CVFLURV #### [place] [address] RSV PCR Negative Normal Negative [facility] Comment on above: Performed By: #### M RSAPCR #### [place] [address] #### CVFLURV #### [place] [address] SARS-CoV-2 (COVID-19) RNA IVANA+probe Ql (Unsp spec) Negative Normal Negative [facility] Comment on above: Result Comment: Resu [...] results. Performed By: #### M RSAPCR #### [place] [address] #### CVFLURV #### [place] [address] LACon 02-19-2025 Lactic Acid Lvl 1.1 mmol/L Normal 0.4-2.0 [facility] Comment on above: Performed By: #### A DIFF, PBNP, TROPHS, CBC, GFR, MDW, ANEU, BMP #### [address] [address] MGon 02-19-2025 Magnesium [Mass/Vol] 1.8 mg/dL Normal 1.8-2.4 [facility] Comment on above: Performed By: #### A DIFF, PBNP, TROPHS, CBC, GFR, MDW, ANEU, BMP #### [address] [address] MRSAPCRon 02-19-2025 MRSA (PCR) Not detected Normal Not Detected [facility] Comment on above: Result Comment: Note s [id number] Performed By: #### M RSAPCR #### [place] [address] #### CVFLURV #### [place] [address] MRSA PCR Int Normal [facility] Comment on above: Result Comment: MRSA [...] Below Performed By: #### M RSAPCR #### [place] [address] #### CVFLURV #### [address] [address] PBNPon 02-19-2025 Natriuretic peptide B (Bld) [Mass/Vol] 2711 pg/mL High 0-125 [facility] Comment on above: Result Comment: NT-p roBNP results of less than 300 pg/mL effectively rules out acute congestive heart failure with 99% negative predictive value. Performed By: #### A DIFF, PBNP, TROPHS, CBC, GFR, MDW, ANEU, BMP #### [place] [id number] RESCVIDon 02-19-2025 Adenovirus Not detected Normal Not Detected [facility] Comment on above: Performed By: #### M RSAPCR #### [place] [address] #### CVFLURV #### [address] [address] Bordetella Parapertussis Not detected Normal Not Detected [facility] Comment on above: Performed By: #### M RSAPCR #### [place] [address] #### CVFLURV #### [address] [address] Bordetella Pertussis Not detected Normal Not Detected [facility] Comment on above: Performed By: #### M RSAPCR #### [place] [address] #### CVFLURV #### [address] [address] Chlamydophila pneumoniae Not detected Normal Not Detected [facility] Comment on above: Performed By: #### M RSAPCR #### [place] [address] #### CVFLURV #### [address] [address] Coronavirus 229E (Not COVID-19) Not detected Normal Not Detected [facility] Comment on above: Performed By: #### M RSAPCR #### [place] [address] #### CVFLURV #### [address] [address] Coronavirus HKU1 (Not COVID-19) Not detected Normal Not Detected [facility] Comment on above: Performed By: #### M RSAPCR #### [place] [id number] #### CVFLURV #### [address] [address] Coronavirus NL63 (Not COVID-19) Not detected Normal Not Detected [facility] Comment on above: Performed By: #### M RSAPCR #### [facility] [address] [place] [address] #### CVFLURV #### [address] [address] Coronavirus OC43 (Not COVID-19) Not detected Normal Not Detected [facility] Comment on above: Performed By: #### M RSAPCR #### [facility] [address] [place], [place] [id number] #### CVFLURV #### [address] [address] Human Metapneumovirus Not detected Normal Not Detected [facility] Comment on above: Performed By: #### M RSAPCR #### [place] [id number] #### CVFLURV #### [address] [address] Influenza A Not detected Normal Not Detected [facility] Comment on above: Performed By: #### M RSAPCR #### [place] [id number] #### CVFLURV #### [address] [address] Influenza B Not detected Normal Not Detected [facility] Comment on above: Performed By: #### M RSAPCR #### [address] [address] #### CVFLURV #### [address] [address] Mycoplasma pneumoniae Not detected Normal Not Detected [facility] Comment on above: Performed By: #### M RSAPCR #### [facility] [address] [place] [address] #### CVFLURV #### [address] [address] Parainfluenza 1 Not detected Normal Not Detected [facility] Comment on above: Performed By: #### M RSAPCR #### [facility] [address] [place], [place] [id number] #### CVFLURV #### [address] [address] Parainfluenza 2 Not detected Normal Not Detected [facility] Comment on above: Performed By: #### M RSAPCR #### [place] [address] #### CVFLURV #### [address] [address] Parainfluenza 3 Not detected Normal Not Detected [facility] Comment on above: Performed By: #### M RSAPCR #### [place] [address] #### CVFLURV #### [address] [address] Parainfluenza 4 Not detected Normal Not Detected [facility] Comment on above: Performed By: #### M RSAPCR #### [place] [address] #### CVFLURV #### [address] [address] Respiratory Syncytial Virus Not detected Normal Not Detected [facility] Comment on above: Performed By: #### M RSAPCR #### [place] [address] #### CVFLURV #### [address] [address] Rhinovirus/Enterovirus Not detected Normal Not Detected [facility] Comment on above: Performed By: #### M RSAPCR #### [place] [address] #### CVFLURV #### [address] [address] SARS-CoV-2 (COVID-19) RNA IVANA+probe Ql (Unsp spec) Not detected Normal Not Detected [facility] Comment on above: Result Comment: This assay has been validated in the [facility] for use with nasopharyngeal specimens in [facility] If a non-validated specimen or test collection [...] authorities. Performed By: #### M RSAPCR #### [place] [address] #### CVFLURV #### [address] [address] [facility] 02-19-2025 High Sensitivity Troponin I 27 ng/L Normal 0-51 [facility] Comment on above: Result Comment: High Sensitive Troponin I Reference Ranges: Female: 0-51 ng/L Male: 0-76 ng/L Testing performed on [employer] using a homogeneous sandwich chemiluminescent immunoassay based on [employer] technology. Performed By: #### A DIFF, PBNP, TROPHS, CBC, GFR, MDW, ANEU, BMP #### [address] [address] XR CHEST 1 VIEWon 02-19-2025 XR CHEST [...] 02/19/2025 1:37:16 AM Ordering Provider: CORNELIUS Rivero [facility] US ABDOMEN COMPLETEon 2024 US ABDOMEN [...] 02/03/2025 11:50:40 AM Ordering Provider: EMMA Rivero [facility] .Auto Diffon 12-11-2024 Basophil, Absolute 0.1 10 3/mcL Normal 0.0-0.2 [facility] Comment on above: Performed By: #### M RSAPCR #### [place] [address] #### CVFLURV #### [address] [address] Basophils/100 WBC (Bld) 1.4 % Normal 0.0-2.5 [facility] Comment on above: Performed By: #### M RSAPCR #### [place] [address] #### CVFLURV #### [address] [address] Eosinophil, Absolute 0.2 10 3/mcL Normal 0.0-0.7 [facility] Comment on above: Performed By: #### M RSAPCR #### [place] [address] #### CVFLURV #### [address] [address] Eosinophils/100 WBC (Bld) 2.8 % Normal 0.0-7.0 [facility] Comment on above: Performed By: #### M RSAPCR #### [place] [address] #### CVFLURV #### [address] [address] Lymphocyte, Absolute 2.1 10 3/mcL Normal 0.9-4.3 [facility] Comment on above: Performed By: #### M RSAPCR #### [place] [address] #### CVFLURV #### [address] [address] Lymphocytes/100 WBC (Bld) 29.6 % Normal 20.0-40.0 [facility] Comment on above: Performed By: #### M RSAPCR #### [address] [address] #### CVFLURV #### [address] [address] Monocyte, Absolute 0.8 10 3/mcL Normal 0.1-1.4 [facility] Comment on above: Performed By: #### M RSAPCR #### [place] [address] #### CVFLURV #### [address] [address] Monocytes/100 WBC (Bld) 11.4 % Normal 2.0-13.0 [facility] Comment on above: Performed By: #### M RSAPCR #### [place] [address] #### CVFLURV #### [address] [address] Neutrophils/100 WBC (Bld) 54.8 % Normal 50.0-75.0 [facility] Comment on above: Performed By: #### M RSAPCR #### [place] [address] #### CVFLURV #### [address] [address] .GFRon 12-11-2024 GFR Non- 56 ml/min/1.73sqm Normal [facility] Comment on above: Result Comment: GFR [...] TROPHS, CBC, GFR, MDW, ANEU, BMP #### [address] [address] GFR 67 ml/min/1.73sqm Normal [facility] Comment on above: Result Comment: GFR [...] TROPHS, CBC, GFR, MDW, ANEU, BMP #### [address] [address] .NEUABSon 12-11-2024 Neutrophil, Absolute 3.9 10 3/mcL Normal 2.3-8.1 [facility] Comment on above: Performed By: #### M RSAPCR #### [address] [address] #### CVFLURV #### [address] [address] BMPon 12-11-2024 BUN/Creatinine Ratio 14 ratio Normal 7-27 [facility] Comment on above: Performed By: #### A DIFF, PBNP, TROPHS, CBC, GFR, MDW, ANEU, BMP #### [address] [address] Chloride [Moles/Vol] 105 mmol/L Normal 98-107 [facility] Comment on above: Performed By: #### A DIFF, PBNP, TROPHS, CBC, GFR, MDW, ANEU, BMP #### [address] [address] CO2 [Moles/Vol] 30 mmol/L Normal 23-31 [facility] Comment on above: Performed By: #### A DIFF, PBNP, TROPHS, CBC, GFR, MDW, ANEU, BMP #### [address] [address] Creatinine [Mass/Vol] 0.99 mg/dL Normal 0.55-1.02 [facility] Comment on above: Result Comment: Test ing performed on Siemens Dimension EXL analyzer using a modified kinetic [place] technique. Performed By: #### A DIFF, PBNP, TROPHS, CBC, GFR, MDW, ANEU, BMP #### [address] [address] Electrolyte Balance 8.0 mEq/L Normal 4.0-15.0 [facility] Comment on above: Performed By: #### A DIFF, PBNP, TROPHS, CBC, GFR, MDW, ANEU, BMP #### [address] [address] Glucose [Mass/Vol] 117 mg/dL High 80-115 [facility] Comment on above: Performed By: #### A DIFF, PBNP, TROPHS, CBC, GFR, MDW, ANEU, BMP #### [address] [address] Potassium [Moles/Vol] 4.7 mmol/L Normal 3.5-5.1 [facility] Comment on above: Performed By: #### A DIFF, PBNP, TROPHS, CBC, GFR, MDW, ANEU, BMP #### [address] [address] Sodium [Moles/Vol] 143 mmol/L Normal 136-145 [facility] Comment on above: Performed By: #### A DIFF, PBNP, TROPHS, CBC, GFR, MDW, ANEU, BMP #### [address] [place] [address] Urea nitrogen [Mass/Vol] 14 mg/dL Normal 7-18 [facility] Comment on above: Performed By: #### A DIFF, PBNP, TROPHS, CBC, GFR, MDW, ANEU, BMP #### [address] [address] Calcium [Mass/Vol] 9.8 mg/dL Normal 8.4-10.2 [facility] Comment on above: Performed By: #### A DIFF, PBNP, TROPHS, CBC, GFR, MDW, ANEU, BMP #### [address] [address] CBCon 12-11-2024 Erythrocyte distribution width (RBC) [Ratio] 14.6 % Normal 11.5-15.5 [facility] Comment on above: Performed By: #### M RSAPCR #### [place] [address] #### CVFLURV #### [address] [address] Hematocrit (Bld) [Volume fraction] 48.2 % High 34.0-46.0 [facility] Comment on above: Performed By: #### M RSAPCR #### [place] [address] #### CVFLURV #### [address] [address] Hgb 15.6 G/dL Normal 12.0-16.0 [facility] Comment on above: Performed By: #### M RSAPCR #### [place] [address] #### CVFLURV #### [address] [address] MCH (RBC) [Entitic mass] 30.5 pg Normal 27.0-33.0 [facility] Comment on above: Performed By: #### M RSAPCR #### [place] [address] #### CVFLURV #### [address] [address] MCHC 32.4 G/dL Normal 32.0-36.0 [facility] Comment on above: Performed By: #### M RSAPCR #### [place] [address] #### CVFLURV #### [address] [address] MCV (RBC) [Entitic vol] 94.2 fL Normal 80.0-99.0 [facility] Comment on above: Performed By: #### M RSAPCR #### [place] [address] #### CVFLURV #### [address] [address] Platelet 370 10 3/mcL Normal 150-450 [facility] Comment on above: Performed By: #### M RSAPCR #### [place] [address] #### CVFLURV #### [address] [address] Platelet mean volume (Bld) [Entitic vol] 9.1 fL Normal 6.6-10.5 [facility] Comment on above: Performed By: #### M RSAPCR #### [place] [address] #### CVFLURV #### [place] [address] RBC 5.12 10 6/mcL Normal 4.10-5.30 [facility] Comment on above: Performed By: #### M RSAPCR #### [place] [address] #### CVFLURV #### [place] [address] WBC 7.0 10 3/mcL Normal 4.5-10.8 [facility] Comment on above: Performed By: #### M RSAPCR #### [place] [address] #### CVFLURV #### [facility] [address] [place], [place] [address] LABORATORYOrdered By: SYSTEM SYSTEM on 12-11-2024 Basophils [...] Comment on above: Interpretive Data: Luis reinoso [employer] (CHEST, 1992, 102:312S-25S) [...] Coag (PPP) [Time] 10.4 s Normal 9.0-14.4 [facility] Comment on above: Performed By: #### M RSAPCR #### [address] [address] #### CVFLURV #### [facility] [address] [place], [place] [address] PT International Ratio 0.9 Normal [facility] Comment on above: Result Comment: [employer] (CHEST, 1992, 102:312S-25S) recommended therapeutic range for oral anticoagulant therapy is: LOW RISK: Prophylaxis of venous thrombosis INR: 2.0-3.0 Treatment of pulmonary embolism 2.0-3.0 Prevention of systemic embolism 2.0-3.0 HIGH RISK: Mechanical prosthetic valves 2.5-3.5 Performed By: #### M RSAPCR #### [facility] [address] [place] [address] #### CVFLURV #### [address] [address] .Auto Diffon 10-23-2024 Basophil, Absolute 0.1 10 3/mcL Normal 0.0-0.2 [facility] Comment on above: Performed By: #### A DIFF, PBNP, TROPHS, CBC, GFR, MDW, ANEU, BMP #### [address] [address] Basophils/100 WBC (Bld) 1.7 % Normal 0.0-2.5 [facility] Comment on above: Performed By: #### A DIFF, PBNP, TROPHS, CBC, GFR, MDW, ANEU, BMP #### [address] [address] Eosinophil, Absolute 0.1 10 3/mcL Normal 0.0-0.7 [facility] Comment on above: Performed By: #### A DIFF, PBNP, TROPHS, CBC, GFR, MDW, ANEU, BMP #### [address] [address] Eosinophils/100 WBC (Bld) 2.2 % Normal 0.0-7.0 [facility] Comment on above: Performed By: #### A DIFF, PBNP, TROPHS, CBC, GFR, MDW, ANEU, BMP #### [address] [address] Lymphocyte, Absolute 2.0 10 3/mcL Normal 0.9-4.3 [facility] Comment on above: Performed By: #### A DIFF, PBNP, TROPHS, CBC, GFR, MDW, ANEU, BMP #### [address] [address] Lymphocytes/100 WBC (Bld) 31.1 % Normal 20.0-40.0 [facility] Comment on above: Performed By: #### A DIFF, PBNP, TROPHS, CBC, GFR, MDW, ANEU, BMP #### [address] [address] Monocyte, Absolute 0.8 10 3/mcL Normal 0.1-1.4 [facility] Comment on above: Performed By: #### A DIFF, PBNP, TROPHS, CBC, GFR, MDW, ANEU, BMP #### [address] [address] Monocytes/100 WBC (Bld) 12.1 % Normal 2.0-13.0 [facility] Comment on above: Performed By: #### A DIFF, PBNP, TROPHS, CBC, GFR, MDW, ANEU, BMP #### [address] [address] Neutrophils/100 WBC (Bld) 52.9 % Normal 50.0-75.0 [facility] Comment on above: Performed By: #### A DIFF, PBNP, TROPHS, CBC, GFR, MDW, ANEU, BMP #### [address] [address] .GFRon 10-23-2024 GFR 102 ml/min/1.73sqm Normal [facility] Comment on above: Result Comment: GFR [...] TROPHS, CBC, GFR, MDW, ANEU, BMP #### [address] [address] GFR Non- 84 ml/min/1.73sqm Normal [facility] Comment on above: Result Comment: GFR [...] TROPHS, CBC, GFR, MDW, ANEU, BMP #### [address] [address] .NEUABSon 10-23-2024 Neutrophil, Absolute 3.4 10 3/mcL Normal 2.3-8.1 [facility] Comment on above: Performed By: #### A DIFF, PBNP, TROPHS, CBC, GFR, MDW, ANEU, BMP #### [address] [address] A1Con 10-23-2024 Glucose [Mass/Vol] 117 mg/dL Normal [facility] Comment on above: Result Comment: Johnna mated Average Glucose calculated by equation ((28.7xA1C)-46.7) Estimated average glucose (eAG) is a calculated value from Hemoglobin A1C and is entry level marketing representative of the average blood glucose level in the last 2-3 month period. Normal range: less than 114 mg/dL Performed By: #### A DIFF, PBNP, TROPHS, CBC, GFR, MDW, ANEU, BMP #### [address] [address] HbA1c (Bld) [Mass fraction] 5.7 % Normal 4.3-6.4 [facility] Comment on above: Performed By: #### A DIFF, PBNP, TROPHS, CBC, GFR, MDW, ANEU, BMP #### [address] [address] CBCon 10-23-2024 Erythrocyte distribution width (RBC) [Ratio] 14.8 % Normal 11.5-15.5 [facility] Comment on above: Performed By: #### A DIFF, PBNP, TROPHS, CBC, GFR, MDW, ANEU, BMP #### [address] [address] Hematocrit (Bld) [Volume fraction] 44.0 % Normal 34.0-46.0 [facility] Comment on above: Performed By: #### A DIFF, PBNP, TROPHS, CBC, GFR, MDW, ANEU, BMP #### [address] [address] Hgb 14.5 G/dL Normal 12.0-16.0 [facility] Comment on above: Performed By: #### A DIFF, PBNP, TROPHS, CBC, GFR, MDW, ANEU, BMP #### [address] [address] MCH (RBC) [Entitic mass] 31.5 pg Normal 27.0-33.0 [facility] Comment on above: Performed By: #### A DIFF, PBNP, TROPHS, CBC, GFR, MDW, ANEU, BMP #### [address] [address] MCHC 32.9 G/dL Normal 32.0-36.0 [facility] Comment on above: Performed By: #### A DIFF, PBNP, TROPHS, CBC, GFR, MDW, ANEU, BMP #### [address] [address] MCV (RBC) [Entitic vol] 95.6 fL Normal 80.0-99.0 [facility] Comment on above: Performed By: #### A DIFF, PBNP, TROPHS, CBC, GFR, MDW, ANEU, BMP #### [address] [address] Platelet 365 10 3/mcL Normal 150-450 [facility] Comment on above: Performed By: #### A DIFF, PBNP, TROPHS, CBC, GFR, MDW, ANEU, BMP #### [address] [address] Platelet mean volume (Bld) [Entitic vol] 8.8 fL Normal 6.6-10.5 [facility] Comment on above: Performed By: #### A DIFF, PBNP, TROPHS, CBC, GFR, MDW, ANEU, BMP #### [address] [address] RBC 4.60 10 6/mcL Normal 4.10-5.30 [facility] Comment on above: Performed By: #### A DIFF, PBNP, TROPHS, CBC, GFR, MDW, ANEU, BMP #### [address] [address] WBC 6.5 10 3/mcL Normal 4.5-10.8 [facility] Comment on above: Performed By: #### A DIFF, PBNP, TROPHS, CBC, GFR, MDW, ANEU, BMP #### [address] [address] CMPon 10-23-2024 Albumin Level 3.4 G/dL Normal 3.4-4.8 [facility] Comment on above: Performed By: #### A DIFF, PBNP, TROPHS, CBC, GFR, MDW, ANEU, BMP #### [address] [address] Albumin/Globulin [Mass ratio] 1.0 {ratio} Low 1.1-2.5 [facility] Comment on above: Performed By: #### A DIFF, PBNP, TROPHS, CBC, GFR, MDW, ANEU, BMP #### [address] [address] ALP [Catalytic activity/Vol] 99 U/L Normal 40-135 [facility] Comment on above: Performed By: #### A DIFF, PBNP, TROPHS, CBC, GFR, MDW, ANEU, BMP #### [address] [address] ALT [Catalytic activity/Vol] 19 U/L Normal 14-59 [facility] Comment on above: Performed By: #### A DIFF, PBNP, TROPHS, CBC, GFR, MDW, ANEU, BMP #### [address] [address] AST [Catalytic activity/Vol] 17 U/L Normal 10-40 [facility] Comment on above: Performed By: #### A DIFF, PBNP, TROPHS, CBC, GFR, MDW, ANEU, BMP #### [address] [address] Bili Total 0.4 mg/dL Normal 0.2-1.0 [facility] Comment on above: Result Comment: Use of this assay is not recommended for patients undergoing treatment with eltrombopag due to the potential for falsely elevated results. Performed By: #### A DIFF, PBNP, TROPHS, CBC, GFR, MDW, ANEU, BMP #### [address] [address] BUN/Creatinine Ratio 10 ratio Normal 7-27 [facility] Comment on above: Performed By: #### A DIFF, PBNP, TROPHS, CBC, GFR, MDW, ANEU, BMP #### [address] [address] Calcium [Mass/Vol] 9.2 mg/dL Normal 8.4-10.2 [facility] Comment on above: Performed By: #### A DIFF, PBNP, TROPHS, CBC, GFR, MDW, ANEU, BMP #### [address] [address] Chloride [Moles/Vol] 103 mmol/L Normal 98-107 [facility] Comment on above: Performed By: #### A DIFF, PBNP, TROPHS, CBC, GFR, MDW, ANEU, BMP #### [address] [address] CO2 [Moles/Vol] 31 mmol/L Normal 23-31 [facility] Comment on above: Performed By: #### A DIFF, PBNP, TROPHS, CBC, GFR, MDW, ANEU, BMP #### [address] [address] Creatinine [Mass/Vol] 0.69 mg/dL Normal 0.55-1.02 [facility] Comment on above: Result Comment: Test ing performed on Siemens Dimension EXL analyzer using a modified kinetic [place] technique. Performed By: #### A DIFF, PBNP, TROPHS, CBC, GFR, MDW, ANEU, BMP #### [address] [address] Electrolyte Balance 6.0 mEq/L Normal 4.0-15.0 [facility] Comment on above: Performed By: #### A DIFF, PBNP, TROPHS, CBC, GFR, MDW, ANEU, BMP #### [address] [address] Globulin 3.4 G/dL Normal [facility] Comment on above: Performed By: #### A DIFF, PBNP, TROPHS, CBC, GFR, MDW, ANEU, BMP #### [address] [address] Glucose [Mass/Vol] 86 mg/dL Normal 80-115 [facility] Comment on above: Performed By: #### A DIFF, PBNP, TROPHS, CBC, GFR, MDW, ANEU, BMP #### [address] [address] Potassium [Moles/Vol] 4.7 mmol/L Normal 3.5-5.1 [facility] Comment on above: Performed By: #### A DIFF, PBNP, TROPHS, CBC, GFR, MDW, ANEU, BMP #### [address] [address] Sodium [Moles/Vol] 140 mmol/L Normal 136-145 [facility] Comment on above: Performed By: #### A DIFF, PBNP, TROPHS, CBC, GFR, MDW, ANEU, BMP #### [address] [place], [place] [address] Total Protein 6.8 G/dL Normal 6.4-8.2 [facility] Comment on above: Performed By: #### A DIFF, PBNP, TROPHS, CBC, GFR, MDW, ANEU, BMP #### [address] [place], [place] [address] Urea nitrogen [Mass/Vol] 7 mg/dL Normal 7-18 [facility] Comment on above: Performed By: #### A DIFF, PBNP, TROPHS, CBC, GFR, MDW, ANEU, BMP #### [address] [place], [place] [address] LABORATORYOrdered By: SYSTEM SYSTEM on 10-23-2024 Albumin [...] calculated value from Hemoglobin A1C and is entry level marketing representative of the average blood glucose level [...] 10-23-2024 Cholesterol [Mass/Vol] 244 mg/dL High 0-200 [facility] Comment on above: Result Comment: Chol esterol Reference Interval: Less than 200 Desirable 200-239 Borderline high risk 240 and above High risk Performed By: #### A DIFF, PBNP, TROPHS, CBC, GFR, MDW, ANEU, BMP #### [address] [place], [place] [address] Cholesterol in HDL [Mass/Vol] 69 mg/dL High 40-60 [facility] Comment on above: Performed By: #### A DIFF, PBNP, TROPHS, CBC, GFR, MDW, ANEU, BMP #### [address] [place], [place] [address] Cholesterol in LDL [Mass/Vol] 148 mg/dL High 0-130 [facility] Comment on above: Performed By: #### A DIFF, PBNP, TROPHS, CBC, GFR, MDW, ANEU, BMP #### [address] [place], [place] [address] Triglyceride [Mass/Vol] 135 mg/dL Normal 0-150 [facility] Comment on above: Result Comment: Trig lyceride Reference Interval: Less than 150 Normal 150-199 Borderline high risk 200-499 High risk 500 or higher Very high risk Performed By: #### A DIFF, PBNP, TROPHS, CBC, GFR, MDW, ANEU, BMP #### [address] [address] TSHon 10-23-2024 TSH Qn 2.34 m[IU]/L Normal 0.36-3.74 [facility] Comment on above: Performed By: #### A DIFF, PBNP, TROPHS, CBC, GFR, MDW, ANEU, BMP #### [address] [address] CNCOon 10-02-2023 CNCO Letter Text Normal [facility] Frank 09-25-2023 CNPN Telephone (INTMWS) STEVEN KOENIG ([id number]) 1955 F Date Time Provider Department 09/25/23 ULISES HERMOSILLO INTMWS During your visit today, we recorded the following information about you: Nena Dozier RN 09/25/2023 4:02 PM Signed Patient calls to report that she is currently in [place] and will be there for the next several months. Patient is going to run out of medication and is unable to transfer prescriptions. Patient asking if provider would send prescriptions to [facility] pharmacy in [place]. Pended 90 day request for review. AAMIR [...] states she will be coming back to [place]. Is just in [place] for a few months to help out her son. [employer] Allergies As of Date: 09/25/2023 (No Known [...] 1 tablet by mouth once daily. - symlyjteqrx-jrvshyxkb-q ilanter (TRELEGY ELLIPTA) 200-62.5-25 mcg inhalation powder Inhale 1 Puff as instructed once daily. Problem List As Of Date 09/25/2023 Noted Resolved Essential hypertension [I10] 12/14/2015 Recurrent major depress (more content not included)... Normal [facility] CNCOon 09-06-2023 CNCO Letter Text Normal [facility] CNPNon 06-13-2023 LINDAN Telephone (TREV) STEVEN KOENIG ([id number]) 1955 F Date Time Provider Department 06/13/23 [facility] PROVIDER TREV During your visit today, we recorded the following information about you: Elizabeth Ly Ma 06/13/2023 4:26 PM Signed Patient contacted via telephone regarding upcoming NEW patient appointment with Dr. Harris on 06/14/23. Patient informed of the following: This is the [facility] calling regarding your upcoming appointment with Dr. Harris. To avoid a delay in your care, please bring any radiology images that have been done outside of the [facility] on a disk to be [...] 1 TABLET BY MOUTH EVERY DAY - yjaenptfbdy-pdrfeethr-f ilanter (TRELEGY ELLIPTA) 200-62.5-25 mcg inhalation powder [...] 07/07/2020 PAD (peripheral artery disease) ([facility]) [I73.9] 09/28/2019 Anxiety and depression [F41.9, F32.A] [...] Hospital 06-10-2023 CNPN Telephone (INTMWS) STEVEN KOENIG ([id number]) 1955 F Date Time Provider Department 06/10/23 [...] to be taking. Please call her at [phone]. Ulises Hermosillo MD 06/13/2023 1:59 AM Signed [...] 1 TABLET BY MOUTH EVERY DAY - rzacjcvntld-codrsvoff-f ilanter (TRELEGY ELLIPTA) 200-62.5-25 mcg inhalation powder [...] LPN on 06/13/23 [facility] ([id number]) 1955 F Date Time Provider Department 05/10/23 ULISES HERMOSILLO INTWS During your visit today, we recorded the following information about you: Christina Franco RN 05/10/2023 1:00 PM Signed Patient calling and asking about lab results as well as x ray results to back. Please review and advise, AAMIR Diego APRN.AIR POLLUTION INSPECTOR 05/10/2023 1:12 PM Signed Lipids are not [...] Will try cholesterol med uses [facility] in [place]. Please assist in scheduling with physical therapy and pain management. Allergies As of Date: 05/10/2023 (No Known Allergies) Date Reviewed: 05/09/2023 Reviewed by: Mely Griffin PA-C - Fully Assessed Reason for Visit: Results [95] Primary Visit Diagnosis:Radiculopathy , lumbar region [M54.16] Other Visit Diagnosis:Chronic midline low back pain with sciatica, sciatica laterality unspecified [M54.40, G89.29] Order(s):CONSULT TO PAIN MGT [837764] Order #: [id number]: 1 FUTURE rosuvastatin (CRESTOR) 5 mg tabletTake 1 tablet by mouth daily at bedtime.Disp: 30 tabletRfl: 2 CONSULT TO PHYSICAL THERAPY [9032] Order #: [id number]: 1 FUTURE Prescriptions as of 05/13/2023 - rosuvastatin (CRESTOR) 5 mg tablet Take 1 tablet by mouth daily at bedtime. - isosorbide mononitrate ER (IMDUR) 30 mg 24 hr tablet TAKE 1 TABLET BY MOUTH EVERY DAY - traZODone (DESYREL) 100 mg tablet Take 2 tablets by mouth daily at bedtime. - kqffktszabo-ocyqsibtx-a ilanter (TRELEGY ELLIPTA) 200-62.5-25 mcg inhalation powder [...] Encounter Status:Closed by CHRISTINA FRANCO on 05/13/23 [facility] XR Lumbar spine 3 Viewson IMPRESSION: Lumbar spine degenerative changes with L4-5 disc space narrowing. Travel Registered Nurse Icu: SRAVANI Transcribe Date/Time: May 10 2023 11:59A Dictated by : KARMEN MOSLEY MD This examination was interpreted and the report reviewed and electronically signed by: KARMEN MOSLEY MD on May 10 2023 12:02PM [facility] DIVISION OF RADIOLOGY * * *Final [...] spine are presented. FINDINGS: There are five igb-erx-ayfzqja lumbar vertebrae. No fracture or subluxations are [...] spine are presented. FINDINGS: There are five rnr-jrp-aifvaed lumbar vertebrae. No fracture or subluxations are noted. Right-sided curvature/dextroscolios is is noted. There is L4-5 disc space narrowing. There is mild to moderate osteophyte formation. Others: There are vascular calcifications. A right-sided iliac vascular stent is noted. IMPRESSION IMPRESSION: Lumbar spine degenerative changes with L4-5 disc space narrowing. Travel Registered Nurse Icu: SRAVANI Transcribe Date/Time: May 10 2023 11:59A Dictated by : KARMEN MOSLEY MD This examination was interpreted and the report reviewed and electronically signed by: KARMEN MOSLEY MD on May 10 2023 12:02PM [facility] XR Lumbar spine 3 ViewsOrder ed By: [facility] Provider on 05-10-2023 [facility] CNOVon 05-09-2023 CNOV Office Visit (PULMWS ) STEVEN KOENIG ([id number]) 1955 F Date Time Provider Department 05/09/23 [...] Bipolar affective disorder, currently active ([facility]) 01/18/2016 Dr. Angie [facility] Chronic bronchitis ([facility]) 07/26/2016 Closed skull fracture ([facility]) 1994 [facility], [facility] Coronary artery disease DDD (degenerative disc disease), cervical Endometriosis 2007 Essential hypertension 12/14/2015 GERD (gastroesophageal reflux disease) 03/13/2019 History of colon polyps History of gastric ulcer 12/14/2015 HLD (hyperlipidemia) Injury of left facial nerve 1994 PAD (peripheral artery disease) ([facility]) 09/28/2019 Recurrent major depression in partial remission ([facility]) 12/14/2015 S/P drug eluting coronary stent placement 08/25/2021 LAD and Dg2 Spinal stenosis Allergies: No Known Allergies isosorbide mononitrate ER (IMDUR) 30 mg 24 hr tablet TAKE 1 TABLET BY MOUTH EVERY DAY traZODone (DESYREL) 100 mg tablet Take 2 tablets by mouth daily at bedtime. phsmtzhtthd-awiscbaqh-o ilanter (TRELEGY ELLIPTA) 200-62.5-25 mcg inhalation powder [...] Basophils (Bld) [#/Vol] 0.08 10*3/uL <0.11 k/uL [facility] Basophils/100 WBC (Bld) 1.0 % [facility] Differential cell count method Nom (Bld) Auto [facility] Eosinophils (Bld) [#/Vol] 0.19 10*3/uL <0.46 k/uL [facility] Eosinophils/100 WBC (Bld) 2.3 % [facility] Erythrocyte distribution width (RBC) [Ratio] 15.4 % High 11.5 - 15.0 % [facility] Hematocrit (Bld) [Volume fraction] 46.9 % High 36.0 - 46.0 % [facility] Hemoglobin (Bld) [Mass/Vol] 14.6 g/dL 11.5 - 15.5 g/dL [facility] Immature granulocytes (Bld) [#/Vol] <0.10 k/uL [facility] Immature granulocytes/100 WBC (Bld) 0.2 % [facility] Lymphocytes (Bld) [#/Vol] 2.23 10*3/uL 1.00 - 4.00 k/uL [facility] Lymphocytes/100 WBC (Bld) 27.3 % [facility] MCH (RBC) [Entitic mass] 30.7 pg 26.0 - 34.0 pg [facility] MCHC (RBC) [Mass/Vol] 31.1 g/dL 30.5 - 36.0 g/dL [facility] MCV (RBC) [Entitic vol] 98.5 fL 80.0 - 100.0 fL [facility] Monocytes (Bld) [#/Vol] 0.71 10*3/uL <0.87 k/uL [facility] Monocytes/100 WBC (Bld) 8.7 % [facility] Neutrophils (Bld) [#/Vol] 4.94 10*3/uL 1.45 - 7.50 k/uL [facility] Neutrophils/100 WBC (Bld) 60.5 % [facility] Nucleated RBC (Bld) [#/Vol] <0.01 k/uL [facility] Nucleated RBC/100 WBC (Bld) [Ratio] 0.0 /100 WBC [facility] Platelet mean volume (Bld) [Entitic vol] 10.5 fL 9.0 - 12.7 fL [facility] Platelets (Bld) [#/Vol] 408 10*3/uL High 150 - 400 k/uL [facility] RBC (Bld) [#/Vol] 4.76 10*6/uL 3.90 - 5.2 0 m/uL [facility] WBC (Bld) [#/Vol] 8.17 10*3/uL 3.70 - 11.00 k/uL [facility] Basophils (Bld) [#/Vol] 0.08 10*3/uL Normal <0.11 [facility] Comment on above: Order Comment: Speci men Type: BLOOD SPECIMENOrdering Facility: [facility] Address: [address] [address] Performed By: #### 5 7021-8 ####[facility] LABCLIA [id number] [address] [place] Basophils/100 WBC (Bld) 1.0 % Normal [facility] Comment on above: Order Comment: Speci men Type: BLOOD SPECIMENOrdering Facility: [facility] Address: [address] [place] [address] Performed By: #### 5 7021-8 ####[facility] LABCLIA [id number] [place] [address] [place] Differential cell count method Nom (Bld) Auto Normal [facility] Comment on above: Order Comment: Speci men Type: BLOOD SPECIMENOrdering Facility: [facility] Address: [address] Performed By: #### 5 7021-8 ####[facility] LABCLIA [id number] [place] [address] [place] Eosinophils (Bld) [#/Vol] 0.19 10*3/uL Normal <0.46 [facility] Comment on above: Order Comment: Speci men Type: BLOOD SPECIMENOrdering Facility: [facility] Address: [address] [address] Performed By: #### 5 7021-8 ####[facility] LABCLIA [id number] [place] [address] [place] Eosinophils/100 WBC (Bld) 2.3 % Normal [facility] Comment on above: Order Comment: Speci men Type: BLOOD SPECIMENOrdering Facility: [facility] Address: [address] Performed By: #### 5 7021-8 ####[facility] LABCLIA [id number] [place] [address] [place] Erythrocyte distribution width (RBC) [Ratio] 15.4 % High 11.5-15.0 [facility] Comment on above: Order Comment: Speci men Type: BLOOD SPECIMENOrdering Facility: [facility] Address: [address] Performed By: #### 5 7021-8 ####[facility] LABCLIA [id number] [place] [address] [place] Hematocrit (Bld) [Volume fraction] 46.9 % High 36.0-46.0 [facility] Comment on above: Order Comment: Speci men Type: BLOOD SPECIMENOrdering Facility: [facility] Address: [address] [place], [place] [address] Performed By: #### 5 7021-8 ####[facility] LABCLIA [id number] [place] [address] [place] Hemoglobin (Bld) [Mass/Vol] 14.6 g/dL Normal 11.5-15.5 [facility] Comment on above: Order Comment: Speci men Type: BLOOD SPECIMENOrdering Facility: [facility] Address: [address] [place] [address] Performed By: #### 5 7021-8 ####[facility] LABCLIA [id number] [place] [address] [place] Immature granulocytes (Bld) [#/Vol] 10*3/uL Normal <0.10 [facility] Comment on above: Order Comment: Speci men Type: BLOOD SPECIMENOrdering Facility: [facility] Address: [address] [place] [address] Performed By: #### 5 7021-8 ####[facility] LABCLIA [id number] [place] [address] [place] Immature granulocytes/100 WBC (Bld) 0.2 % Normal [facility] Comment on above: Order Comment: Speci men Type: BLOOD SPECIMENOrdering Facility: [facility] Address: [address] [place] [address] Performed By: #### 5 7021-8 ####[facility] LABCLIA [id number] [place] [address] [place] Lymphocytes (Bld) [#/Vol] 2.23 10*3/uL Normal 1.00-4.00 [facility] Comment on above: Order Comment: Speci men Type: BLOOD SPECIMENOrdering Facility: [facility] Address: [address] [place], [place] [address] Performed By: #### 5 7021-8 ####[facility] LABCLIA [id number] [place] [address] [place] Lymphocytes/100 WBC (Bld) 27.3 % Normal [facility] Comment on above: Order Comment: Speci men Type: BLOOD SPECIMENOrdering Facility: [facility] Address: [address] Performed By: #### 5 7021-8 ####[facility] [id number] [address] [place] MCH (RBC) [Entitic mass] 30.7 pg Normal 26.0-34.0 [facility] Comment on above: Order Comment: Speci men Type: BLOOD SPECIMENOrdering Facility: [facility] Address: [address] Performed By: #### 5 7021-8 ####[facility] [id number] [address] [place] MCHC (RBC) [Mass/Vol] 31.1 g/dL Normal 30.5-36.0 [facility] Comment on above: Order Comment: Speci men Type: BLOOD SPECIMENOrdering Facility: [facility] Address: [address] Performed By: #### 5 7021-8 ####[facility] [id number] [address] [place] MCV (RBC) [Entitic vol] 98.5 fL Normal 80.0-100.0 [facility] Comment on above: Order Comment: Speci men Type: BLOOD SPECIMENOrdering Facility: [facility] Address: [address] Performed By: #### 5 7021-8 ####[facility] [id number] [place] [address] [place] Monocytes (Bld) [#/Vol] 0.71 10*3/uL Normal <0.87 [facility] Comment on above: Order Comment: Speci men Type: BLOOD SPECIMENOrdering Facility: [facility] Address: [address] [place], [place] [address] Performed By: #### 5 7021-8 ####[facility] LABCLIA [id number] [place] [address] [place] [place] Monocytes/100 WBC (Bld) 8.7 % Normal [facility] Comment on above: Order Comment: Speci men Type: BLOOD SPECIMENOrdering Facility: [facility] Address: [address] [place], [place] [address] Performed By: #### 5 7021-8 ####[facility] LABCLIA [id number] [place] [address] [place] Neutrophils (Bld) [#/Vol] 4.94 10*3/uL Normal 1.45-7.50 [facility] Comment on above: Order Comment: Speci men Type: BLOOD SPECIMENOrdering Facility: [facility] Address: [address] [place], [place] [address] Performed By: #### 5 7021-8 ####[facility] LABCLIA [id number] [place] [address] [place] Neutrophils/100 WBC (Bld) 60.5 % Normal [facility] Comment on above: Order Comment: Speci men Type: BLOOD SPECIMENOrdering Facility: [facility] Address: [address] [place], [place] [address] Performed By: #### 5 7021-8 ####[facility] LABCLIA [id number] [place] [address] [place] Nucleated RBC (Bld) [#/Vol] 10*3/uL Normal <0.01 [facility] Comment on above: Order Comment: Speci men Type: BLOOD SPECIMENOrdering Facility: [facility] Address: [address] [place] [address] Performed By: #### 5 7021-8 ####[facility] LABCLIA [id number] [place] [address] [place] Nucleated RBC/100 WBC (Bld) [Ratio] 0.0 /100 WBC Normal [facility] Comment on above: Order Comment: Speci men Type: BLOOD SPECIMENOrdering Facility: [facility] Address: [address] [place], [place] [address] Performed By: #### 5 7021-8 ####[facility] LABCLIA [id number] [place] [address] [place] Platelet mean volume (Bld) [Entitic vol] 10.5 fL Normal 9.0-12.7 [facility] Comment on above: Order Comment: Speci men Type: BLOOD SPECIMENOrdering Facility: [facility] Address: [address] [place], [place] [address] Performed By: #### 5 7021-8 ####[facility] LABCLIA [id number] [place] [address] [place] Platelets (Bld) [#/Vol] 408 10*3/uL High 150-400 [facility] Comment on above: Order Comment: Speci men Type: BLOOD SPECIMENOrdering Facility: [facility] Address: [address] [place], [place] [address] Performed By: #### 5 7021-8 ####[facility] LABCLIA [id number] [place] [address] [place] RBC (Bld) [#/Vol] 4.76 10*6/uL Normal 3.90-5.20 [facility] Comment on above: Order Comment: Speci men Type: BLOOD SPECIMENOrdering Facility: [facility] Address: [address] [place], [place] [address] Performed By: #### 5 7021-8 ####[facility] LABCLIA [id number] [place] [address] [place] WBC (Bld) [#/Vol] 8.17 10*3/uL Normal 3.70-11.00 [facility] Comment on above: Order Comment: Speci men Type: BLOOD SPECIMENOrdering Facility: [facility] Address: [address] [place] [address] Performed By: #### 5 7021-8 ####[facility] LABCLIA [id number] [address] [place] [id number] [address] [place] [facility] CNOVon 05-08-2023 CNOV Office Visit (INTMWS ) STEVEN KOENIG ([id number]) 1955 F Date Time Provider Department 05/08/23 12:20 PM OLDEROLY INTMWS During your visit today, we recorded the following information about you: Pulse Respiration Blood pressure Weight 90/minute 20/minute 134/88 56.2 kg 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 Angie Jones, [facility] Chronic bronchitis ([facility]) 07/26/2016 Closed skull fracture ([facility]) 1994 [facility], [facility] Coronary artery disease DDD (degenerative disc disease), cervical Endometriosis 2007 Essential hypertension 12/14/2015 GERD (gastroesophageal reflux disease) 03/13/2019 History of colon polyps History of gastric ulcer 12/14/2015 HLD (hyperlipidemia) Injury of left facial nerve 1994 PAD (peripheral artery disease) ([facility]) 09/28/2019 Recurrent major depression in partial remission ([facility]) 12/14/2015 S/P drug eluting coronary stent placement [...] TOTAL FACIAL NERVE DECOMPRESSION AND/REPAIR Left 1989 [facility] ALLERGIES Patient has no known allergies. [...] 2 tablets by mouth daily at bedtime. dkipliprflk-ihfwtubsi-m ilanter (TRELEGY ELLIPTA) 200-62.5-25 mcg inhalation powder [...] 05-08-2023 Albumin [Mass/Vol] 4.2 g/dL Normal 3.9-4.9 [facility] Comment on above: Order Comment: Speci men Type: BLOOD SPECIMENOrdering Facility: [facility] Address: [address] [place] [phone] Performed By: #### 2 4323-8, LIPNF ####[facility] LABCLIA [id number] [place] [address] [place] ALP [Catalytic activity/Vol] 86 U/L Normal 34-123 [facility] Comment on above: Order Comment: Speci men Type: BLOOD SPECIMENOrdering Facility: [facility] Address: [address] Performed By: #### 2 4323-8, LIPNF ####[facility] LABCLIA [id number] [address] [place] ALT [Catalytic activity/Vol] 12 U/L Normal 7-38 [facility] Comment on above: Order Comment: Speci men Type: BLOOD SPECIMENOrdering Facility: [facility] Address: [address] Performed By: #### 2 4323-8, LIPNF ####[facility] LABCLIA [id number] [place] [address] [place] Anion gap [Moles/Vol] 13 mmol/L Normal 9-18 [facility] Comment on above: Order Comment: Speci men Type: BLOOD SPECIMENOrdering Facility: [facility] Address: [address] Performed By: #### 2 4323-8, LIPNF ####[facility] LABCLIA [id number] [address] [place] AST [Catalytic activity/Vol] 15 U/L Normal 13-35 [facility] Comment on above: Order Comment: Speci men Type: BLOOD SPECIMENOrdering Facility: [facility] Address: [address] [place] [address] Performed By: #### 2 4323-8, LIPNF ####[facility] LABCLIA [id number] [place] [address] [place] Bilirubin [Mass/Vol] mg/dL Low 0.2-1.3 [facility] Comment on above: Order Comment: Speci men Type: BLOOD SPECIMENOrdering Facility: [facility] Address: [address] Performed By: #### 2 4323-8, LIPNF ####[facility] LABCLIA [id number] [place] [address] [place] Calcium [Mass/Vol] 9.3 mg/dL Normal 8.5-10.2 [facility] Comment on above: Order Comment: Speci men Type: BLOOD SPECIMENOrdering Facility: [facility] Address: [address] [place], [place] [address] Performed By: #### 2 4323-8, LIPNF ####[facility] LABCLIA [id number] [place] [address] [place] Chloride [Moles/Vol] 102 mmol/L Normal 97-105 [facility] Comment on above: Order Comment: Speci men Type: BLOOD SPECIMENOrdering Facility: [facility] Address: [address] [place] [address] Performed By: #### 2 4323-8, LIPNF ####[facility] LABCLIA [id number] [place] [address] [place] CO2 [Moles/Vol] 22 mmol/L Normal 22-30 [facility] Comment on above: Order Comment: Speci men Type: BLOOD SPECIMENOrdering Facility: [facility] Address: [address] [place] [address] Performed By: #### 2 4323-8, LIPNF ####[facility] LABCLIA [id number] [place] [address] [place] Creatinine [Mass/Vol] 0.97 mg/dL High 0.58-0.96 [facility] Comment on above: Order Comment: Speci men Type: BLOOD SPECIMENOrdering Facility: [facility] Address: [address] [place] [address] Performed By: #### 2 4323-8, LIPNF ####[facility] LABCLIA [id number] [place] [address] [place] ESTIMATED GLOMERULAR FILTRATION RATE 64 mL/min/1.73m??? Normal >=60 [facility] Comment on above: Order Comment: [place] Type: BLOOD SPECIMENOrdering Facility: [facility] Address: [address] [place] [address] Result Comment: Johnna mated Glomerular Filtration Rate [...] GFR. Performed By: #### 2 4323-8, LIPSEGUNDO ####[facility] LABCLIA [id number] [place] [address] [place] Glucose [Mass/Vol] 76 mg/dL Normal 74-99 [facility] Comment on above: Order Comment: [place] Type: BLOOD SPECIMENOrdering Facility: [facility] Address: [address] [place] [address] Result Comment: The [place] Diabetes Association (ADA) provides guidance for cutoff [...] Standards of Medical Care in Diabetes 2016, [place] [employer] Association. Diabetes Care. 2016.39(Suppl 1). Performed By: #### 2 4323-8, LIPSEGUNDO ####[facility] LABCLIA [id number] [place] [address] [place] Potassium [Moles/Vol] 5.3 mmol/L High 3.7-5.1 [facility] Comment on above: Order Comment: [place] Type: BLOOD SPECIMENOrdering Facility: [facility] Address: [address] Performed By: #### 2 4323-8, LIPNF ####[facility] LABCLIA [id number] [place] [address] [place] Protein [Mass/Vol] 6.9 g/dL Normal 6.3-8.0 [facility] Comment on above: Order Comment: Speci men Type: BLOOD SPECIMENOrdering Facility: [facility] Address: [address] Performed By: #### 2 4323-8, LIPNF ####[facility] LABCLIA [id number] [place] [address] [place] Sodium [Moles/Vol] 137 mmol/L Normal 136-144 [facility] Comment on above: Order Comment: Speci men Type: BLOOD SPECIMENOrdering Facility: [facility] Address: [address] [place], [place] [address] Performed By: #### 2 4323-8, LIPNF ####[facility] LABCLIA [id number] [place] [address] [place] Urea nitrogen [Mass/Vol] 13 mg/dL Normal 7-21 [facility] Comment on above: Order Comment: Speci men Type: BLOOD SPECIMENOrdering Facility: [facility] Address: [address] Performed By: #### 2 4323-8, LIPNF ####[facility] LABCLIA [id number] [place] [address] [place] LIPID PANEL, NONFASTINGon Cholesterol [Mass/Vol] 232 mg/dL High <200 [facility] Comment on above: Order Comment: Speci men Type: BLOOD SPECIMENOrdering Facility: [facility] Address: [address] [place] [address] Result Comment: <200 mg/dL, Desirable 200-239 mg/dL, Borderline high >239 mg/dL, High Performed By: #### 2 4323-8, LIPNF ####[facility] LABCLIA [id number] [address] HDL CHOLESTEROL, NF 67 mg/dL Normal >39 [facility] Comment on above: Order Comment: Speci men Type: BLOOD SPECIMENOrdering Facility: [facility] Address: [address] [place] [address] Result Comment: 40-5 9 mg/dL, Acceptable >59 mg/dL, High: Negative risk factor for coronary heart disease <40 mg/dL, Low: Positive risk factor for coronary heart disease Performed By: #### 2 4323-8, LIPNF ####[facility] LABCLIA [id number] [address] LDL CHOLESTEROL, NF 143 mg/dL High <100 [facility] Comment on above: Order Comment: Toii [facility] Type: BLOOD SPECIMENOrdering Facility: [facility] Address: [address] [place] [address] Result Comment: <100 mg/dL, Optimal 100-129 mg/dL, Near optimal/above optimal 130-159 mg/dL, Borderline high 160-189 mg/dL, High >189 mg/dL, Very high Secondary prevention optimal LDL Cholesterol levels are recommended to be < 70 mg/dL Performed By: #### 2 4323-8, LIPNF ####[facility] LABCLIA [id number] [address] LDL/HDL RATIO, NF 2.13 mg/dL Normal <2.54 [facility] Comment on above: Order Comment: Speci men Type: BLOOD SPECIMENOrdering Facility: [facility] Address: [address] [place] [address] Result Comment: Refe rence: 1. National Cholesterol Education Program ATP III Guideline At-A-Glance Quick Desk Reference: National Heart, Lung, and Blood [place]. National Institutes of Health. 2001: NIH Publication No. 01-3305. 2. An International Atherosclerosis Society position paper: global recommendations for the management of dyslipidemia: executive summary, Atherosclerosis. 2014: 232(2):410-413. Performed By: #### 2 4323-8, LIPNF ####[facility] LABCLIA [id number] [address] OF [facility] NON HDL CHOL, NF 165 mg/dL High <130 [facility] Comment on above: Order Comment: Speci men Type: BLOOD SPECIMENOrdering Facility: [facility] Address: [address] [place] [address] Result Comment: <130 mg/dL, Optimal 130-159 mg/dL, Near optimal/above optimal 160-189 mg/dL, Borderline high 190-219 mg/dL, High >219 mg/dL, Very high Secondary prevention optimal non HDL Cholesterol levels are recommended to be <100 mg/dL Performed By: #### 2 4323-8, LIPNF ####[facility] LABCLIA [id number] [address] OF [facility] T CHOL/HDL RATIO NF 3.46 mg/dL Normal <5.10 [facility] Comment on above: Order Comment: Speci men Type: BLOOD SPECIMENOrdering Facility: [facility] Address: [address] [place] [address] Performed By: #### 2 4323-8, LIPNF ####[facility] LABCLIA [id number] [address] [place] TRIGLYCERIDES, NF 108 mg/dL Normal <150 [facility] Comment on above: Order Comment: Speci men Type: BLOOD SPECIMENOrdering Facility: [facility] Address: [address] [place] [address] Result Comment: <150 mg/dL, Normal 150-199 mg/dL, Borderline high 200-499 mg/dL, High >499 mg/dL, Very high Performed By: #### 2 4323-8, LIPNF ####[facility] LABCLIA [id number] [address] STATES OF [facility] VLDL CHOLESTEROL, NF 22 mg/dL Normal <30 [facility] Comment on above: Order Comment: Speci men Type: BLOOD SPECIMENOrdering Facility: [facility] Address: [address] [place] [id number] Performed By: #### 2 4323-8, LIPNF ####[facility] LABCLIA [id number] [address] [place] XR LUMBAR 3V AP/LAT/L5-S1on [...] spine are presented. FINDINGS: There are five xui-owp-livepci lumbar vertebrae. No fracture or subluxations are noted. Right-sided curvature/dextroscolios is is noted. There is L4-5 disc space narrowing. There is mild to moderate osteophyte formation. Others: There are vascular calcifications. A right-sided iliac vascular stent is noted. IMPRESSION: Lumbar spine degenerative changes with L4-5 disc space narrowing. Travel Registered Nurse Icu: PSCB Transcribe Date/Time: May 10 2023 11:59A Dictated by : KARMEN MOSLEY MD This examination was interpreted and the report reviewed and electronically signed by: KARMEN MOSLEY MD on May 10 2023 12:02PM EST [id number] Normal [facility] XR Lumbar spine 3 [facility] Radiology Study observation (narrative) [facility] CNOVon 04-02-2023 CNOV Office Visit (VASSWS ) RUBI KOENIGELE Fidencio ([id number]) 1955 F Date Time Provider Department 04/02/23 [...] Visit Diagnosis:PAD (peripheral artery disease) ([facility]) [I73.9] Order(s):PVR [facility]G [facility] [[id number]] Order #: [id number] FUTURE Prescriptions as of 04/02/2023 - isosorbide mononitrate ER (IMDUR) 30 mg 24 hr tablet TAKE 1 TABLET BY MOUTH EVERY DAY - predniSONE (DELTASONE) 10 mg tablet TAKE TWO DAILY FOR 5 DAYS THEN ONE DAILY FOR 10 DAYS - traZODone (DESYREL) 100 mg tablet Take 2 tablets by mouth daily at bedtime. - vpaqxqnnmil-ogvfjyfpx-z ilanter (TRELEGY ELLIPTA) 200-62.5-25 mcg inhalation powder [...] ANK/LYONS/TOE [facility] Non-Invasive Vascular Laboratory [facility] Lower Extremity Arterial Physiology Study Bilateral/Complete Date [...] disease at rest. Technologist: Becky Nazario RVT, RDNV Ordering physician: DORON SELF Interpreting physician: MALINDA Vitale DO Final [employer] [facility] Image : [id number] See Link below for Image Normal [facility] Basic Metabolic Panel Reflex Mgon 01-07-2023 Anion gap [Moles/Vol] 5 mmol/L Low 7-16 [facility] Calcium [Mass/Vol] 8.6 mg/dL Normal 8.6-10.2 [facility] Chloride [Moles/Vol] 95 mmol/L Low 98-107 [facility] CO2 [Moles/Vol] 32 mmol/L High 22-29 [facility] Creatinine [Mass/Vol] 0.8 mg/dL Normal 0.5-1.0 [facility] GFR Calculated >60 Normal >=60 [facility] Comment on above: Result Comment: Jimbo chongc [...] secretion. Glucose [Mass/Vol] 143 mg/dL High 74-99 [facility] Magnesium [Moles/Vol] 6.2 mmol/L High 3.5-5.0 [facility] Comment on above: Result Comment: Spec imen is moderately Hemolyzed. Result may be artificially increased. Sodium [Moles/Vol] 132 mmol/L Normal 132-146 [facility] Urea nitrogen [Mass/Vol] 26 mg/dL High 6-23 [facility] Basic Metabolic Panel w/ Ref wu to MGon 01-07-2023 Anion gap [Moles/Vol] 5 mmol/L Low 7 - 16 mmol/L [facility] Calcium [Mass/Vol] 8.6 mg/dL 8.6 - 10. 2 mg/dL [facility] Chloride [Moles/Vol] 95 mmol/L Low 98 - 10 7 mmol/L [facility] CO2 [Moles/Vol] 32 mmol/L High 22 - 29 mmol/L [facility] [employer] Creatinine [Mass/Vol] 0.8 mg/dL 0.5 - 1.0 mg/dL [facility] GFR/1.73 sq M.predicted MDRD (S/P/Bld) [Vol rate/Area] mL/min/1.73 60 - PINF mL/min/1.73 [facility] Comment on above: Pediatric calculator link [email or web address]://www.kidney.org/professionals/kdoqi/gfr_calculatorped [...] 143 mg/dL High 74 - 99 mg/dL [facility] Interpretation and review of laboratory results Abnormal [facility] Potassium [Moles/Vol] 6.2 mmol/L High 3.5 - 5.0 mmol/L [facility] Comment on above: Specimen is moderate ly Hemolyzed. Result may be artificially increased. Sodium [Moles/Vol] 132 mmol/L 132 - 146 mmol/L [facility] Urea nitrogen (BldV) [Mass/Vol] 26 mg/dL High 6 - 23 mg/dL [facility] CBC With Platelet and Differ entialon 01-07-2023 Abs Imm Granulocytes 0.06 E9/L Normal [facility] Absolute Basophils 0.01 E9/L Normal 0.00-0.20 [facility] Absolute Eosinophils 0.01 E9/L Low 0.05-0.50 [facility] Absolute Lymphocytes 0.61 E9/L Low 1.50-4.00 [facility] Absolute Monocytes 0.29 E9/L Normal 0.10-0.95 [facility] Absolute Neutrophils 8.76 E9/L High 1.80-7.30 [facility] Basophils/100 WBC (Bld) 0.1 % Normal 0.0-2.0 [facility] Eosinophils/100 WBC (Bld) 0.1 % Normal 0.0-6.0 [facility] Hematocrit (Bld) [Volume fraction] 42.8 % Normal 34.0-48.0 [facility] Hemoglobin (Bld) [Mass/Vol] 13.5 g/dL Normal 11.5-15.5 [facility] Imm Granulocytes 0.6 % Normal 0.0-5.0 [facility] Lymphocytes/100 WBC (Bld) 6.3 % Low 20.0-42.0 [facility] MCH (RBC) [Entitic mass] 31.3 pg Normal 26.0-35.0 [facility] MCHC 31.5 % Low 32.0-34.5 [facility] MCV (RBC) [Entitic vol] 99.1 fL Normal 80.0-99.9 [facility] Monocytes/100 WBC (Bld) 3.0 % Normal 2.0-12.0 [facility] Neutrophils/100 WBC (Bld) 89.9 % High 43.0-80.0 [facility] Platelet Count 421 E9/L Normal 130-450 [facility] Platelet mean volume (Bld) [Entitic vol] 9.8 fL Normal 7.0-12.0 [facility] RBC 4.32 E12/L Normal 3.50-5.50 [facility] RDW 15.1 fL High 11.5-15.0 [facility] WBC 9.7 E9/L Normal 4.5-11.5 [facility] CBC with Auto Differentialon 01-07-2023 Basophils (Bld) [#/Vol] 0.01 10*3/uL [facility] Basophils/100 WBC (Bld) 0.1 % 0.0 - 2.0 % [facility] Eosinophils Absolute 0.01 Low [facility] Eosinophils/100 WBC (Bld) 0.1 % 0.0 - 6.0 % [facility] PE[facility]IASchoolEdge Mobile [facility] Hematocrit (Bld) [Volume fraction] 42.8 % 34.0 - 48.0 % [facility] Hemoglobin (Bld) [Mass/Vol] 13.5 g/dL 11.5 - 15.5 g/dL [facility] Immature Granulocytes # 0.06 E9/L [facility] Immature granulocytes/100 WBC (Bld) 0.6 % 0.0 - 5.0 % [facility] Interpretation and review of laboratory results Abnormal [facility] Lymphocytes Absolute 0.[address] [facility] Lymphocytes/100 WBC (Bld) 6.3 % Low 20.0 - 42.0 % [facility] MCH (RBC) [Entitic mass] 31.3 pg 26.0 - 35.0 pg [facility] MCHC (RBC) [Mass/Vol] 31.5 % Low 32.0 - 34.5 % [facility] MCV (RBC) [Entitic vol] 99.1 fL 80.0 - 99.9 fL [facility] Monocytes Absolute 0.[address] [facility] Monocytes/100 WBC (Bld) 3.0 % 2.0 - 12.0 % [facility] Neutrophils Absolute 8.76 High [facility] Neutrophils/100 WBC (Bld) 89.9 % High 43.0 - 80.0 % [facility] Platelet distribution width (Bld) [Ratio] 15.1 fL High 11.5 - 15.0 fL [facility] Platelet mean volume (Bld) [Entitic vol] 9.8 fL 7.0 - 12.0 fL [facility] Platelets (Bld) [#/Vol] 421 10*3/uL [facility] RBC (Bld) [#/Vol] 4.32 10*6/uL [facility] S [facility] WBC (Bld) [#/Vol] 9.7 10*3/uL [facility] Glucose Glucometer (BldC) [M ass/Vol]Ordered By: Dr. Teague on 01-07-2023 Glucose [Mass/Vol] 88 mg/dL 74-106 [facility] Comment on above: MANAGEMENT OF PATIEN T CARE PER NURSING PROTOCOL High Sensitivity Troponin To n 01-07-2023 High Sensitivity Troponin T 14 ng/L High 0-9 [facility] Comment on above: Result Comment: High Sensitivity Troponin values cannot be compared with other Troponin methodologies. Patients with high levels of Biotin oral intake (i.e. >5 mg/day) may have falsely decreased Troponin levels. Samples collected within 8 hours of biotin intake may require additional information for diagnosis. Troponinon 01-07-2023 Interpretation and review of laboratory results Abnormal [facility] Troponin, High Sensitivity 14 ng/L High 0 - 9 ng/L [facility] Comment on above: High Sensitivity Tro ponin values cannot be compared with other Troponin methodologies. Patients with high levels of Biotin oral intake (i.e. >5 mg/day) may have falsely decreased Troponin levels. Samples collected within 8 hours of biotin intake may require additional information for diagnosis. [facility] Bacteria identified Respirat ory culture Nom (Unsp spec)Ordered By: Dr. Luque on 01-06-2023 Respiratory Culture Streptococcus pneumoniae [facility] Absolute lymphocyte countOrd ered By: Dr. Luque on 01-03-2023 Lymphocytes Auto (Unsp spec) [#/Vol] 0.36 10*3/uL 0.83-4.51 [facility] Basophil percentageOrdered B y: Dr. Luque on 01-03-2023 Basophils/100 WBC (Bld) 0.6 % 0-1 [facility] Bilirubin [Mass/Vol] 0.20 mg/dL 0.20-1.00 [facility] Comment on above: For patients on eltr ombopag therapy, use of Dimension [place] TBIL is not recommended. Chloride [Moles/Vol] 112 mmol/L 98-107 [facility] Cholesterol [Mass/Vol] 225 mg/dL <200 [facility] Comment on above: <200 mg/dL Desirable 200-240 mg/dL Borderline >240 mg/dL High Risk Eosinophils/100 WBC (Bld) 0.0 % 0-5 [facility] Glucose [Mass/Vol] 236 mg/dL 74-106 [facility] Comment on above: Glucose result great er than or equal to 200 mg/dLsuggests DIABETES MELLITUS per A.D.A. criteria. Neutrophils (Bld) [#/Vol] 6.2 10*3/uL 2.0-7.7 [facility] Neutrophils/100 WBC (Bld) 92.4 % 47-70 [facility] Potassium [Moles/Vol] 4.3 mmol/L 3.5-5.1 [facility] Protein [Mass/Vol] 6.5 g/dL 6.4-8.2 [facility] Sodium [Moles/Vol] 141 mmol/L 136-145 [facility] Triglyceride [Mass/Vol] 63 mg/dL <[address] [facility] Comment on above: The drugs N-Acetylcy steine and Metamizole may falsely depress this assay.Serum Triglycerides Reference Interval Normal <150 mg/dL Borderline high 150 - 199 mg/dL High 200 - 499 mg/dL Very High > or = 500 mg/dL WBC (Bld) [#/Vol] 6.7 10*3/uL 4.4-11.0 [facility] Blood erythrocytes count (nu mber/volume)Ordered By: Dr. Luque on 01-03-2023 RBC (Bld) [#/Vol] 4.25 10*6/uL 4.2-5.4 [facility] Blood hemoglobin measurement (mass/volume)Ordered By: Dr. Luque on 01-03-2023 Hemoglobin (Bld) [Mass/Vol] 13.4 g/dL 12.0-15.0 [facility] Blood lymphocytes/100 leukoc ytesOrdered By: Dr. Luque on 01-03-2023 Lymphocytes/100 WBC (Bld) 5.4 % 19-41 [facility] Blood manual differential co mment interpretation (narrative result)Ordered By: Dr. Luque on 01-03-2023 Manual differential comment Marquez (Bld) [Interp] SCANNED [facility] Blood monocytes/100 leukocyt esOrdered By: Dr. Luque on 01-03-2023 Monocytes/100 WBC (Bld) 0.9 % 0-[address] [facility] Blood platelet mean volumeOr dered By: Dr. Luque on 01-03-2023 Platelet mean volume (Bld) [Entitic vol] 9.4 fL 6.2-12.0 [facility] Determination of erythrocyte mean corpuscular volume (MCV)Ordered By: Dr. Luque on 01-03-2023 MCV (RBC) [Entitic vol] 99.1 fL 81-[address] [facility] Gram stain for investigation of transfusion reactionOrdered By: Dr. Luque on 01-03-2023 Microscopic observation Gram stain Nom (Unsp spec) [facility] Hematocrit Auto (Bld) [Volum e fraction]Ordered By: Dr. Luque on 01-03-2023 Hematocrit (Bld) [Volume fraction] 42.1 % 37-47 [facility] Laboratory - Chemistry and C hemistry - challengeOrdered By: Dr. Luque on 01-03-2023 ALP [Catalytic activity/Vol] 59 U/L 45-117 [facility] ALT [Catalytic activity/Vol] 19 U/L 13-56 [facility] CO2 [Moles/Vol] 25.0 mmol/L 21.0-32.0 [facility] Globulin (S) [Mass/Vol] 3.5 g/dL 2.2-4.[address] [facility] Urea nitrogen/Creatinine [Mass ratio] 12.5 mg/mg 10-20 [facility] Laboratory - Hematology and Cell countsOrdered By: Dr. Luque on 01-03-2023 Erythrocyte distribution width (RBC) [Entitic vol] 57.1 fL 35.1-43.9 [facility] Erythrocyte distribution width (RBC) [Ratio] 15.7 % 11.6-14.6 [facility] Immature granulocytes/100 WBC (Bld) 0.700 % 0.0-0.9 [facility] Comment on above: IG% - Immature Granu locytes (promyelocytes, myelocytes and metamyelocytes) > 1% indicates that a LEFT SHIFT is Present. MCH (RBC) [Entitic mass] 31.5 pg 27.0-32.0 [facility] Nucleated RBC/100 WBC (Bld) [Ratio] 0 % 0-5 [facility] MCHC Auto (RBC) [Mass/Vol]Or dered By: Dr. Luque on 01-03-2023 MCHC (RBC) [Mass/Vol] 31.8 g/dL 32-36 [facility] No Panel InformationOrdered By: Dr. Luque on 01-03-2023 Estimated Creatinine Clearance Calc 61.40 ml/min [facility] Estimated GFR (MDRD) Amer 92 mL/min >60 [facility] Comment on above: GFR Calc Estimated GFR (MDRD) Non-Af Amer 76 mL/min >60 [facility] Comment on above: Non- GFR Calc Troponin I High Sensitivity 17 pg/mL 3.0-54.0 [facility] Comment on above: Please Note: New Elsa t Units and Gender Specific Reference Ranges. For more information see Policy Stat Procedure [place] High Sensitivity Troponin (TNIH) and attachments. Platelets bldOrdered By: Dr. Luque on 01-03-2023 Platelets (Bld) [#/Vol] 416 10*3/uL 150-450 [facility] Serum or plasma albumin giovanni urement (mass/volume)Ordered By: Dr. Luque on 01-03-2023 Albumin [Mass/Vol] 3.0 g/dL 3.2-5.0 [facility] Serum or plasma albumin/glob ulin mass ratioOrdered By: Dr. Luque on 01-03-2023 Albumin/Globulin [Mass ratio] 0.9 {ratio} 0.9-2.4 [facility] Serum or plasma calcium giovanni urement (mass/volume)Ordered By: Dr. Luque on 01-03-2023 Calcium [Mass/Vol] 8.1 mg/dL 8.5-10.1 [facility] Serum or plasma cholesterol in HDL measurement (mass/volume)Ordered By: Dr. Luque on 01-03-2023 Cholesterol in HDL [Mass/Vol] 98 mg/dL >40 [facility] Comment on above: The drugs N-Acetylcy steine and Metamizole may falsely depress this assay. Reference Range HDL <40 mg/dL Low HDL Cholesterol HDL >or= 60 mg/dL High HDL Cholesterol Serum or plasma cholesterol in VLDL measurement (mass/volume)Ordered By: Dr. Lquue on 01-03-2023 Cholesterol in VLDL [Mass/Vol] 13 mg/dL 5-40 [facility] Serum or plasma creatinine m easurement (mass/volume)Ordered By: Dr. Luque on 01-03-2023 Creatinine [Mass/Vol] 0.80 mg/dL 0.55-1.02 [facility] Comment on above: The validity of the calculated GFR & GFRAA in patients over 70 years has not been determined. Clinical correlation is essential. Serum or plasma low density lipoprotein (LDL) cholesterol measurement (mass/volume)Ordered By: Dr. Luque on 01-03-2023 Cholesterol in LDL [Mass/Vol] 114 mg/dL 0-130 [facility] Serum or plasma urea nitroge n measurement (mass/volume)Ordered By: Dr. Luque on 01-03-2023 Urea nitrogen [Mass/Vol] 10 mg/dL 7-18 [facility] Thin prep Papanicolaou smear with manual screeningOrdered By: Dr. Luque on 01-03-2023 Thin prep Papanicolaou smear with manual screening 14 U/L 15-37 [facility] Thin prep Papanicolaou smear with manual screening 4 5-15 [facility] Whole blood hemoglobin A1c/t otal hemoglobin ratio (mass fraction)Ordered By: Dr. Sauer on 01-03-2023 HbA1c (Bld) [Mass fraction] 5.5 % 3.8-5.6 [facility] Comment on above: Normal < 5.7 % Predi abetic 5.7 - 6.4 % Diabetic >or= 6.5 % Please note range changes. Absolute lymphocyte countOrd ered By: Dr. Koroma on 01-02-2023 Lymphocytes Auto (Unsp spec) [#/Vol] 2.67 10*3/uL 0.83-4.51 [facility] Basophil percentageOrdered B y: Dr. Luque on 01-02-2023 Basophil percentage 3.6 mg/dL 2.5-4.9 [facility] Basophil percentageOrdered B y: Dr. Koroma on 01-02-2023 Basophils/100 WBC (Bld) 1.3 % 0-1 [facility] Bilirubin [Mass/Vol] 0.10 mg/dL 0.20-1.00 [facility] Comment on above: For patients on eltr ombopag therapy, use of Dimension [place] TBIL is not recommended. Chloride [Moles/Vol] 109 mmol/L 98-107 [facility] Eosinophils/100 WBC (Bld) 1.4 % 0-5 [facility] Glucose [Mass/Vol] 76 mg/dL 74-106 [facility] Neutrophils (Bld) [#/Vol] 3.6 10*3/uL 2.0-7.7 [facility] Neutrophils/100 WBC (Bld) 50.1 % 47-70 [facility] Potassium [Moles/Vol] 3.6 mmol/L 3.5-5.1 [facility] Protein [Mass/Vol] 7.3 g/dL 6.4-8.2 [facility] Sodium [Moles/Vol] 143 mmol/L 136-145 [facility] WBC (Bld) [#/Vol] 7.2 10*3/uL 4.4-11.0 [facility] Basophil percentage 0 SEEN /hpf 0-5 [facility] Bilirubin Test strip Ql (U)O rdered By: Dr. Koroma on 01-02-2023 Bilirubin Ql (U) Negative Negative [facility] Blood erythrocytes count (nu mber/volume)Ordered By: Dr. Koroma on 01-02-2023 RBC (Bld) [#/Vol] 4.42 10*6/uL 4.2-5.4 [facility] Blood hemoglobin measurement (mass/volume)Ordered By: Dr. Koroma on 01-02-2023 Hemoglobin (Bld) [Mass/Vol] 14.0 g/dL 12.0-15.0 [facility] Blood lymphocytes/100 leukoc ytesOrdered By: Dr. Koroma on 01-02-2023 Lymphocytes/100 WBC (Bld) 37.2 % 19-41 [facility] Blood monocytes/100 leukocyt esOrdered By: Dr. Koroma on 01-02-2023 Monocytes/100 WBC (Bld) 9.6 % 0-[address] [facility] Blood platelet mean volumeOr dered By: Dr. Koroma on 01-02-2023 Platelet mean volume (Bld) [Entitic vol] 9.8 fL 6.2-12.0 [facility] Determination of erythrocyte mean corpuscular volume (MCV)Ordered By: Dr. Koroma on 01-02-2023 MCV (RBC) [Entitic vol] 99.3 fL 81-[address] [facility] Hematocrit Auto (Bld) [Volum e fraction]Ordered By: Dr. Koroma on 01-02-2023 Hematocrit (Bld) [Volume fraction] 43.9 % 37-47 [facility] Ketones Test strip Ql (U)Ord ered By: Dr. Koroma on 01-02-2023 Ketones Ql (U) Negative Negative [facility] Laboratory - Chemistry and C hemistry - challengeOrdered By: Dr. Luque on 01-02-2023 Magnesium [Mass/Vol] 2.0 mg/dL 1.6-2.6 [facility] Laboratory - Chemistry and C hemistry - challengeOrdered By: Dr. Koroma on 01-02-2023 ALP [Catalytic activity/Vol] 63 U/L 45-117 [facility] ALT [Catalytic activity/Vol] 24 U/L 13-56 [facility] CO2 [Moles/Vol] 27.0 mmol/L 21.0-32.0 [facility] Globulin (S) [Mass/Vol] 3.9 g/dL 2.2-4.[address] [facility] Lipase [Catalytic activity/Vol] 235 U/L 73-393 [facility] Urea nitrogen/Creatinine [Mass ratio] 13.7 mg/mg 10-20 [facility] Laboratory - Drug toxicology Ordered By: Dr. Koroma on 01-02-2023 Amphetamines Ql (U) Negative <1000 ng/mL [facility] Benzodiazepines Ql (U) Negative < 200 ng/mL [facility] Cannabinoids Screen Ql (U) Negative < 50 ng/mL [facility] Cocaine Ql (U) Negative < 300 ng/mL [facility] Opiates Ql (U) Negative < 300 ng/mL [facility] Laboratory - Hematology and Cell countsOrdered By: Dr. Koroma on 01-02-2023 Erythrocyte distribution width (RBC) [Entitic vol] 56.6 fL 35.1-43.9 [facility] Erythrocyte distribution width (RBC) [Ratio] 15.6 % 11.6-14.6 [facility] Immature granulocytes/100 WBC (Bld) 0.400 % 0.0-0.9 [facility] Comment on above: IG% - Immature Granu locytes (promyelocytes, myelocytes and metamyelocytes) > 1% indicates that a LEFT SHIFT is Present. MCH (RBC) [Entitic mass] 31.7 pg 27.0-32.0 [facility] Nucleated RBC/100 WBC (Bld) [Ratio] 0 % 0-[facility] [Mass/Vol]Or dered By: Dr. Koroma on 01-02-2023 MCHC (RBC) [Mass/Vol] 31.9 g/dL 32-36 [facility] Mucus LM Ql (Urine sed)Order ed By: Dr. Koroma on 01-02-2023 Mucus Ql (Urine sed) 0 SEEN /hpf [facility] Nitrite Test strip Ql (U)Ord ered By: Dr. Koroma on 01-02-2023 Nitrite Ql (U) Negative Negative [facility] No Panel InformationOrdered By: Dr. Koroma on 01-02-2023 Estimated Creatinine Clearance Calc 61.40 ml/min [facility] Estimated GFR (MDRD) Amer 91 mL/min >60 [facility] Comment on above: GFR Calc Estimated GFR (MDRD) Non-Af Amer 76 mL/min >60 [facility] Comment on above: Non- GFR Calc Ethyl Alcohol Level 112.0 mg/dL [facility] Comment on above: The serum:whole bloo d ethanol ratio is approximately 1.14and varies slightly with hematocrit. Medical Alcohol reference interval and critical value innon-tolerant individuals; 50 - 100 Impairment 100 Intoxication 100 - 250 Severe Poisoning 250 - 400 Deep/possible fatal coma Troponin I High Sensitivity 17 pg/mL 3.0-54.0 [facility] Comment on above: Please Note: New Elsa t Units and Gender Specific Reference Ranges. For more information see Policy Stat Procedure [place] High Sensitivity Troponin (TNIH) and attachments. MDMA (Ecstasy) Screen Negative < 500 ng/mL [facility] Urine Barbiturates Screen Negative < 200 ng/mL [facility] Urine Drug Screen Comment [facility] Comment on above: CONFIRMATORY TESTING FOR [...] Methadone Screen Negative < 300 ng/mL [facility] Platelets bldOrdered By: Dr. Koroma on 01-02-2023 Platelets (Bld) [#/Vol] 478 10*3/uL 150-450 [facility] Protein Test strip Ql (U)Ord ered By: Dr. Koroma on 01-02-2023 Protein Ql (U) Negative Negative [facility] Serum or plasma albumin giovanni urement (mass/volume)Ordered By: Dr. Koroma on 01-02-2023 Albumin [Mass/Vol] 3.4 g/dL 3.2-5.0 [facility] Serum or plasma albumin/glob ulin mass ratioOrdered By: Dr. Koroma on 01-02-2023 Albumin/Globulin [Mass ratio] 0.9 {ratio} 0.9-2.4 [facility] Serum or plasma calcium giovanni urement (mass/volume)Ordered By: Dr. Koroma on 01-02-2023 Calcium [Mass/Vol] 8.5 mg/dL 8.5-10.1 [facility] Serum or plasma creatinine m easurement (mass/volume)Ordered By: Dr. Koroma on 01-02-2023 Creatinine [Mass/Vol] 0.80 mg/dL 0.55-1.02 [facility] Comment on above: The validity of the calculated GFR & GFRAA in patients over 70 years has not been determined. Clinical correlation is essential. Serum or plasma urea nitroge n measurement (mass/volume)Ordered By: Dr. Koroma on 01-02-2023 Urea nitrogen [Mass/Vol] 11 mg/dL 7-18 [facility] Serum procalcitonin measurem entOrdered By: Dr. Luque on 01-02-2023 Procalcitonin [Mass/Vol] ng/mL 0.00-0.09 [facility] Comment on above: A procalcitonin (PCT [...] Ql (Urine sed) 0-5 SEEN /hpf 5-10 [facility] Thin prep Papanicolaou smear with manual screeningOrdered By: Dr. Koroma on 01-02-2023 Thin prep Papanicolaou smear with manual screening 17 U/L 15-37 [facility] Thin prep Papanicolaou smear with manual screening 7 5-15 [facility] Urine blood detectionOrdered By: Dr. Koroma on 01-02-2023 RBC Ql (U) Negative Negative [facility] RBC Ql (U) 0 SEEN /hpf 0-5 [facility] Urine clarityOrdered By: Dr. Koroma on 01-02-2023 Clarity (U) Clear Clear [facility] Urine color determinationOrd ered By: Dr. Koroma on 01-02-2023 Color (U) Yellow Yellow [facility] Urine glucose detectionOrder ed By: Dr. Koroma on 01-02-2023 Glucose Ql (U) Normal mg/dl Normal [facility] Urine leukocyte esterase det ection by dipstickOrdered By: Dr. Koroma on 01-02-2023 Leukocyte esterase Test strip Ql (U) Negative Negative [facility] Urine pHOrdered By: Dr. Haider mark on 01-02-2023 pH (U) 6.0 [pH] 5.0 - 8.0 [facility] Urine phencyclidine (PCP) de tectionOrdered By: Dr. Koroma on 01-02-2023 Phencyclidine Ql (U) Negative < 25 ng/mL [facility] Urine sediment bacteria coun t by microscopy (number/high power field)Ordered By: Dr. Koroma on 01-02-2023 Bacteria LM.HPF (Urine sed) [#/Area] 0 /[HPF] None Seen [facility] Urine specific gravity measu rementOrdered By: Dr. Koroma on 01-02-2023 Specific gravity (U) [Rel density] 1.005 1.002-1.030 [facility] Urobilinogen Auto test strip Ql (U)Ordered By: Dr. Koroma on 01-02-2023 Urobilinogen Ql (U) Normal mg/dl Normal [facility] A1AT SerPl-mCncon 01-01-2023 Alpha 1 antitrypsin [Mass/Vol] 192 mg/dL Normal 90-200 [facility] Comment on above: Order Comment: Speci men Type: BLOOD SPECIMENOrdering Facility: [facility] Address: [address] [place] [address] Performed By: #### 1 825-9 ####[facility] LABIA [id number] [place] [address] [place] CBC W Auto Differential pane l (Bld)on 01-01-2023 Basophils (Bld) [#/Vol] 0.07 10*3/uL Normal <0.11 [facility] Comment on above: Order Comment: Speci men Type: BLOOD SPECIMENOrdering Facility: [facility] Address: [address] [place] [address] Performed By: #### 5 7021-8 ####[facility] LABCLIA [id number] [place] [address] [place] Basophils/100 WBC (Bld) 1.0 % Normal [facility] Comment on above: Order Comment: Speci men Type: BLOOD SPECIMENOrdering Facility: [facility] Address: [address] [place] [address] Performed By: #### 5 7021-8 ####[facility] LABIA [id number] [place] [address] [place] Differential cell count method Nom (Bld) Auto Normal [facility] Comment on above: Order Comment: Speci men Type: BLOOD SPECIMENOrdering Facility: [facility] Address: [address] [place], [place] [id number] Performed By: #### 5 7021-8 ####[facility] LABCLIA [id number] [place] [address] [place] Eosinophils (Bld) [#/Vol] 0.07 10*3/uL Normal <0.46 [facility] Comment on above: Order Comment: Speci men Type: BLOOD SPECIMENOrdering Facility: [facility] Address: [address] [place], [place] [id number] Performed By: #### 5 7021-8 ####[facility] LABIA [id number] [address] [place] Eosinophils/100 WBC (Bld) 1.0 % Normal [facility] Comment on above: Order Comment: Speci men Type: BLOOD SPECIMENOrdering Facility: [facility] Address: [address] [place], [place] [id number] Performed By: #### 5 7021-8 ####[facility] LABIA [id number] [place] [address] [place] Erythrocyte distribution width (RBC) [Ratio] 15.8 % High 11.5-15.0 [facility] Comment on above: Order Comment: Speci men Type: BLOOD SPECIMENOrdering Facility: [facility] Address: [address] [place], [place] [id number] Performed By: #### 5 7021-8 ####[facility] LABIA [id number] [place] [address] [place] Hematocrit (Bld) [Volume fraction] 44.4 % Normal 36.0-46.0 [facility] Comment on above: Order Comment: Speci men Type: BLOOD SPECIMENOrdering Facility: [facility] Address: [address] [place] [address] Performed By: #### 5 7021-8 ####[facility] LABCLIA [id number] [place] [address] [place] Hemoglobin (Bld) [Mass/Vol] 14.1 g/dL Normal 11.5-15.5 [facility] Comment on above: Order Comment: Speci men Type: BLOOD SPECIMENOrdering Facility: [facility] Address: [address] Performed By: #### 5 7021-8 ####[facility] LABCLIA [id number] [place] [address] [place] Immature granulocytes (Bld) [#/Vol] 10*3/uL Normal <0.10 [facility] Comment on above: Order Comment: Speci men Type: BLOOD SPECIMENOrdering Facility: [facility] Address: [address] [place], [place] [address] Performed By: #### 5 7021-8 ####[facility] LABIA [id number] [place] [address] [place] Immature granulocytes/100 WBC (Bld) 0.3 % Normal [facility] Comment on above: Order Comment: Speci men Type: BLOOD SPECIMENOrdering Facility: [facility] Address: [address] [place], [place] [address] Performed By: #### 5 7021-8 ####[facility] LABCLIA [id number] [place] [address] [place] Lymphocytes (Bld) [#/Vol] 1.67 10*3/uL Normal 1.00-4.00 [facility] Comment on above: Order Comment: Speci men Type: BLOOD SPECIMENOrdering Facility: [facility] Address: [address] Performed By: #### 5 7021-8 ####[facility] LABCLIA [id number] [address] [place] [facility] Lymphocytes/100 WBC (Bld) 23.3 % Normal [facility] Comment on above: Order Comment: Speci men Type: BLOOD SPECIMENOrdering Facility: [facility] Address: [address] [place] [address] Performed By: #### 5 7021-8 ####[facility] LABCLIA [id number] [address] [place] MCH (RBC) [Entitic mass] 32.0 pg Normal 26.0-34.0 [facility] Comment on above: Order Comment: Speci men Type: BLOOD SPECIMENOrdering Facility: [facility] Address: [address] [place] [address] Performed By: #### 5 7021-8 ####[facility] LABIA [id number] [address] [place] MCHC (RBC) [Mass/Vol] 31.8 g/dL Normal 30.5-36.0 [facility] Comment on above: Order Comment: Speci men Type: BLOOD SPECIMENOrdering Facility: [facility] Address: [address] [place], [place] [address] Performed By: #### 5 7021-8 ####[facility] LABIA [id number] [address] [place] MCV (RBC) [Entitic vol] 100.9 fL High 80.0-100.0 [facility] Comment on above: Order Comment: Speci men Type: BLOOD SPECIMENOrdering Facility: [facility] Address: [address] [place] [id number] Performed By: #### 5 7021-8 ####[facility] LABCLIA [id number] [place] [address] [place] Monocytes (Bld) [#/Vol] 0.91 10*3/uL High <0.87 [facility] Comment on above: Order Comment: Speci men Type: BLOOD SPECIMENOrdering Facility: [facility] Address: [address] Performed By: #### 5 7021-8 ####[facility] LABCLIA [id number] [address] [place] Monocytes/100 WBC (Bld) 12.7 % Normal [facility] Comment on above: Order Comment: Speci men Type: BLOOD SPECIMENOrdering Facility: [facility] Address: [address] Performed By: #### 5 7021-8 ####[facility] LABCLIA [id number] [place] [address] [place] Neutrophils (Bld) [#/Vol] 4.44 10*3/uL Normal 1.45-7.50 [facility] Comment on above: Order Comment: Speci men Type: BLOOD SPECIMENOrdering Facility: [facility] Address: [address] Performed By: #### 5 7021-8 ####[facility] LABCLIA [id number] [address] STATES OF [facility] Neutrophils/100 WBC (Bld) 61.7 % Normal [facility] Comment on above: Order Comment: Speci men Type: BLOOD SPECIMENOrdering Facility: [facility] Address: [address] Performed By: #### 5 7021-8 ####[facility] LABCLIA [id number] [place] [address] [place] Nucleated RBC (Bld) [#/Vol] 10*3/uL Normal <0.01 [facility] Comment on above: Order Comment: Speci men Type: BLOOD SPECIMENOrdering Facility: [facility] Address: [address] Performed By: #### 5 7021-8 ####[facility] LABCLIA [id number] [place] [address] [place] Nucleated RBC/100 WBC (Bld) [Ratio] 0.0 /100 WBC Normal [facility] Comment on above: Order Comment: Speci men Type: BLOOD SPECIMENOrdering Facility: [facility] Address: [address] [place] [address] Performed By: #### 5 7021-8 ####[facility] LABIA [id number] [place] [address] [place] Platelet mean volume (Bld) [Entitic vol] 10.1 fL Normal 9.0-12.7 [facility] Comment on above: Order Comment: Speci men Type: BLOOD SPECIMENOrdering Facility: [facility] Address: [address] [place] [address] Performed By: #### 5 7021-8 ####[facility] [id number] [place] [address] [place] Platelets (Bld) [#/Vol] 439 10*3/uL High 150-400 [facility] Comment on above: Order Comment: Speci men Type: BLOOD SPECIMENOrdering Facility: [facility] Address: [address] [place], [place] [id number] Performed By: #### 5 7021-8 ####[facility] [id number] [place] [address] [place] RBC (Bld) [#/Vol] 4.40 10*6/uL Normal 3.90-5.20 [facility] Comment on above: Order Comment: Speci men Type: BLOOD SPECIMENOrdering Facility: [facility] Address: [address] [place], [place] [id number] Performed By: #### 5 7021-8 ####[facility] LABIA [id number] [place] [address] [place] WBC (Bld) [#/Vol] 7.18 10*3/uL Normal 3.70-11.00 [facility] Comment on above: Order Comment: Speci men Type: BLOOD SPECIMENOrdering Facility: [facility] Address: [address] [place] [address] Performed By: #### 5 7021-8 ####[facility] LABCLIA [id number] [address] [place] [address] [facility] CNOVon 01-01-2023 CNOV Office Visit (INTMWS ) STEVEN KOENIG ([id number]) 1955 F Date Time Provider Department 01/01/23 2:00 PM OLY SMITH INTMWS During your visit today, we recorded the following information about you: Pulse Respiration Blood pressure Weight 85/minute 22/minute 170/83 58.1 kg Oly Smith SENIOR WINDOWS SYSTEMS ENGINEER.AIR POLLUTION INSPECTOR 01/01/2023 3:27 PM Addendum CC: Patient presents [...] Alcohol use disorder 01/18/2016 Dr. Angie Jones, [facility] Anxiety 12/14/2015 Bipolar affective disorder, currently active ([facility]) 01/18/2016 Dr. Angie Jones, [facility] Chronic bronchitis ([facility]) 07/26/2016 Closed skull fracture ([facility]) 1994 [facility], [facility] Coronary artery disease DDD (degenerative disc disease), cervical Endometriosis 2007 Essential hypertension 12/14/2015 GERD (gastroesophageal reflux disease) 03/13/2019 History of colon polyps History of gastric ulcer 12/14/2015 HLD (hyperlipidemia) Injury of left facial nerve 1994 PAD (peripheral artery disease) ([facility]) 09/28/2019 Recurrent major depression in partial remission ([facility]) 12/14/2015 S/P drug eluting coronary stent placement [...] TOTAL FACIAL NERVE DECOMPRESSION AND/REPAIR Left 1989 [facility] ALLERGIES Patient has no known allergies. MEDICATIONS traZODone (DESYREL) 100 mg tablet Take 2 tablets by mouth daily at bedtime. samipbdgtvj-sxiajtbcg-b ilanter (TRELEGY ELLIPTA) 200-62.5-25 mcg inhalation powder [...] included)... Normal [facility] Frank 01-01-2023 [facility] STEVEN KOENIG ([id number]) 1955 Date Time Provider Department 01/01/23 [facility] PE[facility] During your visit today, we recorded the following information about you: GIO Cardona 01/01/2023 3:55 PM Signed Behavioral Health Social Work Progress Note Patient identified for [facility] from: PCP Reason for referral: Resources Behavioral Health Resources: Substance abuse [facility] encounter type: Telephone Encounter Attempts to Outreach: 1 attempt Referral made: Psychology - External Psychology-External referral type: Alcohol/Drug Treatment Reason for external referral: Patient seeking exterminator support, Patient needs services closer to home [...] look into for detoxification and substance abuse: [facility] [address] [place] [address] [address] [facility] [address] [place] [address] [phone] Patient states she may end up just going to [facility] if she can't find anywhere to go to assist as she really needs to detox. Advised to call these numbers and if additional assistance is needed to inform this SW. GIO Cardona January 01, 2023 Allergies As of Date: 01/01/2023 (No Known Allergies) Date Reviewed: 01/01/2023 Reviewed by: Oly Smith APRN.AIR POLLUTION INSPECTOR - Fully Assessed Reason for Visit: Behavioral Health Social Work [Other] Prescriptions as of 01/01/2023 - traZODone (DESYREL) 100 mg tablet Take 2 tablets by mouth daily at bedtime. - jcxqwriebbc-dqdkcrluy-i ilanter (TRELEGY ELLIPTA) 200-62.5-25 mcg inhalation powder [...] tissues: Unremarkable. IMPRESSION: No acute radiographic abnormality. Travel Registered Nurse Icu: PSCB Transcribe Date/Time: Jan 01 2023 3:22P Dictated by : HUBER VILA MD This examination was interpreted and the report reviewed and electronically signed by: HUBER VILA MD on Jan 01 2023 3:23PM EST [id number] Normal [facility] XR Chest PA and Lateralon IMPRESSION: No acute radiographic abnormality. Travel Registered Nurse Icu: SRAVANI Transcribe Date/Time: Jan 01 2023 3:22P Dictated by : HUBER VILA MD This examination was interpreted and the report reviewed and electronically signed by: HUBER VILA MD on Jan 01 2023 3:23PM [facility] DIVISION OF RADIOLOGY * * *Final [...] soft tissues: Unremarkable. DIVISION OF RADIOLOGY Provider, [facility] - 01/01/2023 * * *Final [...] Unremarkable. IMPRESSION IMPRESSION: No acute radiographic abnormality. Travel Registered Nurse Icu: SRAVANI Transcribe Date/Time: Jan 01 2023 3:22P Dictated by : HUBER VILA MD This examination was interpreted and the report reviewed and electronically signed by: HUBER VILA MD on Jan 01 2023 3:23PM [facility] Radiology Study observation (narrative) [facility] XR Chest PA and LateralOrder ed By: [facility] Provider on 01-01-2023 [facility] .Auto Diffon 12-23-2022 Basophil, Absolute 0.1 10 3/mcL Normal 0.0-0.2 [facility] Comment on above: Performed By: #### T ROPHS, GFR, CMP, PBNP #### [address] [address] Basophils/100 WBC (Bld) 1.5 % Normal 0.0-2.5 [facility] ([place]) Comment on above: Performed By: #### T ROPHS, GFR, CMP, PBNP #### [address] [address] Eosinophil, Absolute 0.1 10 3/mcL Normal 0.0-0.4 [facility] ([place]) Comment on above: Performed By: #### T ROPHS, GFR, CMP, PBNP #### [address] [address] Eosinophils/100 WBC (Bld) 1.1 % Normal 0.0-7.0 [facility] ([place]) Comment on above: Performed By: #### T ROPHS, GFR, CMP, PBNP #### [address] [address] Lymphocyte, Absolute 2.0 10 3/mcL Normal 0.8-3.9 [facility] ([place]) Comment on above: Performed By: #### T ROPHS, GFR, CMP, PBNP #### [address] [address] Lymphocytes/100 WBC (Bld) 36.4 % Normal 10.0-50.0 [facility] ([place]) Comment on above: Performed By: #### T ROPHS, GFR, CMP, PBNP #### [address] [address] Monocyte, Absolute 0.5 10 3/mcL Normal 0.2-1.0 [facility]) Comment on above: Performed By: #### T ROPHS, GFR, CMP, PBNP #### [address] [address] Monocytes/100 WBC (Bld) 9.3 % Normal 1.7-13.0 [facility] ([place]) Comment on above: Performed By: #### T GOMEZ, GFR, CMP, PBNP #### [address] [address] Neutrophils/100 WBC (Bld) 51.7 % Normal 37.0-80.0 [facility] ([place]) Comment on above: Performed By: #### T GOMEZ, GFR, CMP, PBNP #### [address] [address] .GFRon 12-23-2022 GFR 100 ml/min/1.73sqm Normal [facility] ([place]) Comment on above: Result Comment: [...] #### T GOMEZ, GFR, CMP, PBNP #### [address] [address] GFR Non- 82 ml/min/1.73sqm Normal [facility] ([place]) Comment on above: Result Comment: [...] #### T GOMEZ, GFR, CMP, PBNP #### [address] [address] .MDWon 12-23-2022 Monocyte Distribution Width 18.17 Normal 0.00-20.00 [facility] ([place]) Comment on above: Result Comment: For ED adult patients suspected of sepsis, MDW<=20.0 does not rule out sepsis or risk of sepsis Performed By: #### T GOMEZ, GFR, CMP, PBNP #### [address] [address] .NEUABSon 12-23-2022 Neutrophil, Absolute 2.8 10 3/mcL Low 2.9-6.2 [facility] ([place]) Comment on above: Performed By: #### T GOMEZ, GFR, CMP, PBNP #### [address] [address] BMPon 12-23-2022 BUN/Creatinine Ratio 6 ratio Low 7-27 [facility]) Comment on above: Performed By: #### T GOMEZ, GFR, CMP, PBNP #### [address] [address] Calcium [Mass/Vol] 8.1 mg/dL Low 8.4-10.2 [facility] ([place]) Comment on above: Performed By: #### T GOMEZ, GFR, CMP, PBNP #### [address] [address] Chloride [Moles/Vol] 102 mmol/L Normal 98-107 [facility] [place]) Comment on above: Performed By: #### T GOMEZ, GFR, CMP, PBNP #### [address] [address] CO2 [Moles/Vol] 30 mmol/L Normal 23-31 [facility] ([place]) Comment on above: Performed By: #### T ROPHS, GFR, CMP, PBNP #### [address] [address] Creatinine [Mass/Vol] 0.71 mg/dL Normal 0.55-1.02 [facility] ([place]) Comment on above: Performed By: #### T ROPHS, GFR, CMP, PBNP #### [address] [address] Electrolyte Balance 7.0 mEq/L Normal 4.0-15.0 [facility], 1928[facility] ([place]) Comment on above: Performed By: #### T ROPHS, GFR, CMP, PBNP #### [address] [address] Glucose [Mass/Vol] 88 mg/dL Normal 80-115 [facility] ([place]) Comment on above: Performed By: #### T ROPHS, GFR, CMP, PBNP #### [address] [address] Potassium [Moles/Vol] 4.1 mmol/L Normal 3.5-5.1 [facility] ([place]) Comment on above: Performed By: #### T ROPHS, GFR, CMP, PBNP #### [address] [address] Sodium [Moles/Vol] 139 mmol/L Normal 136-145 [facility] ([place]) Comment on above: Performed By: #### T ROPHS, GFR, CMP, PBNP #### [address] [address] Urea nitrogen [Mass/Vol] 4 mg/dL Low 7-18 [facility] ([place]) Comment on above: Performed By: #### T ROPHS, GFR, CMP, PBNP #### [address] [address] CBCon 12-23-2022 Erythrocyte distribution width (RBC) [Ratio] 15.8 % High 11.5-14.5 [facility] ([place]) Comment on above: Performed By: #### T ROPHS, GFR, CMP, PBNP #### [address] [address] Hematocrit (Bld) [Volume fraction] 39.7 % Normal 37.0-47.0 [facility] ([place]) Comment on above: Performed By: #### T ROPHS, GFR, CMP, PBNP #### [address] [address] Hgb 13.2 G/dL Normal 12.0-16.0 [facility] ([place]) Comment on above: Performed By: #### T ROPHS, GFR, CMP, PBNP #### [address] [address] MCH (RBC) [Entitic mass] 32.3 pg High 27.0-31.2 [facility] ([place]) Comment on above: Performed By: #### T ROPHS, GFR, CMP, PBNP #### [place] [address] MCHC 33.2 G/dL Normal 33.0-37.0 [facility] ([place]) Comment on above: Performed By: #### T ROPHS, GFR, CMP, PBNP #### [address] [address] MCV (RBC) [Entitic vol] 97.3 fL High 80.0-94.0 A [facility] ([place]) Comment on above: Performed By: #### T ROPHS, GFR, CMP, PBNP #### [address] [address] Platelet 337 10 3/mcL Normal 130-400 [facility] ([place]) Comment on above: Performed By: #### T ROPHS, GFR, CMP, PBNP #### [address] [address] Platelet mean volume (Bld) [Entitic vol] 7.7 fL Normal 7.4-10.4 [facility] ([place]) Comment on above: Performed By: #### T ROPHS, GFR, CMP, PBNP #### [place] [id number] RBC 4.08 10 6/mcL Low 4.20-5.40 [facility] ([place]) Comment on above: Performed By: #### T ARIELLEHS, GFR, CMP, PBNP #### [place] [address] [place], [place] [address] WBC 5.4 10 3/mcL Normal 4.6-10.8 [facility] ([place]) Comment on above: Performed By: #### T ARIELLEHS, GFR, CMP, PBNP #### [facility] [address] [place], [place] [address] LABORATORYOrdered By: Lisa Casas on 12-23-2022 Basophil, [...] B (Bld) [Mass/Vol] 540 pg/mL High 0-125 [facility] ([place]) Comment on above: Result Comment: NT-p roBNP results of less than 300 pg/mL effectively rules out acute congestive heart failure with 99% negative predictive value. Performed By: #### T GOMEZ, GFR, CMP, PBNP #### [address] [address] TROPHSon 12-23-2022 Troponin I High Sensitivity 14.1 ng/L Normal 0.0-51.4 [facility] ([place]) Comment on above: Performed By: #### T GOMEZ, GFR, CMP, PBNP #### [address] [address] XR CHEST 1 VIEWon 12-23-2022 XR CHEST [...] 2:43:01 PM Ordering Provider: JOSE ROBERTO Rivero [facility] ([place]) Luba 11-26-2022 CN Office Visit (PULMWS ) STEVEN KOENIG ([id number]) 1955 F Date Time Provider Department 11/26/22 12:45 PM ISAURO ASHER PULMWS During your visit today, we recorded the following information about you: Pulse Respiration Blood pressure Weight 98/minute 20/minute 120/84 57.6 kg Isauro Asher MD 11/26/2022 2:01 PM Signed . Respiratory [place] Note Patient name: Steven Koenig PCP: Ulises Hermosillo MD CC: Hemoptysis HPI: Steven Koenig 67 year old female current heavy smoker, over 100 pack years with PMH significant for bipolar affective disorder, h/o alcohol abuse, GERD, PAD, HLD, CAD s/p stent, severe COPD (FEV1 0.83 L 36%), oxygen dependence, previously following in [facility] Recent admission at [facility] in [place] for AECOPD. CXR reported as normal. Discharged [...] current cough. DME: [facility] DATA: PFT 05/2022: Review of spirometry shows severe obstruction without significant improvement post bronchodilators and moderate reduction in diffusing capacity Labs: Laboratory testing at [facility], normal CBC and platelet count. Negative COVID and influenza Imaging / Diagnostic Studies: DATE OF EXAM: Jul 26 2022 4:27PM [facility] 0562 - CT LUNG [...] Bipolar affective disorder, currently active ([facility]) 01/18/2016 [facility] Chronic bronchitis ([facility]) 07/26/2016 Closed skull fracture ([facility]) 1994 [facility], [facility] Coronary artery disease DDD (degenerative disc disease), cervical Endometriosis 2007 Essential hypertension 12/14/2015 GERD (gastroesophageal reflux disease) 03/13/2019 History of colon polyps History of gastric ulcer 12/14/2015 HLD (hyperlipidemia) Injury of left facial nerve 1994 PAD (peripheral artery disease) ([facility]) 09/28/2019 Recurrent major depression in partial remission ([facility]) 12/14/2015 S/P drug eluting coronary stent placement 08/25/2021 LAD and Dg2 Spinal stenosis ALLERGIES No Known Allergies albuterol HFA (VENTOLIN HFA) 90 mcg/actuation inhaler Inhale 2 Puffs as instructed every 6 hours as needed for wheezing/shortness of breath. yvriijxpwbc-zmrahgboo-c ilanter (TRELEGY ELLIPTA) 200-62.5-25 mcg inhalation powder [...] 8 hours (more content not included)... [facility] Telephone (INTMWS) STEVEN KOENIG ([id number]) 1955 F Date Time Provider Department 11/20/22 ULISES HERMOSILLO INTMWS During your visit today, we recorded the following information about you: Christina Greco LPN 11/20/2022 10:40 AM Signed Pt called and reports she went to [facility] ER last week for difficulty breathing [...] tablets by mouth daily at bedtime. - wfixjftmdka-fhcqxettf-y ilanter (TRELEGY ELLIPTA) 200-62.5-25 mcg inhalation powder [...] 07/07/2020 PAD (peripheral artery disease) ([facility]) [I73.9] 09/28/2019 Anxiety and depression (more content not included)... Normal [facility] .Auto Diffon 10-26-2022 Basophil, Absolute 0.1 10 3/mcL Normal 0.0-0.2 [facility] Comment on above: Performed By: #### T GOMEZ, GFR, CMP, PBNP #### [address] [address] Basophils/100 WBC (Bld) 1.6 % Normal 0.0-2.5 A [facility] ([place]) Comment on above: Performed By: #### T GOMEZ, GFR, CMP, PBNP #### [address] [address] Eosinophil, Absolute 0.2 10 3/mcL Normal 0.0-0.4 [facility] ([place]) Comment on above: Performed By: #### T GOMEZ, GFR, CMP, PBNP #### [address] [address] Eosinophils/100 WBC (Bld) 2.3 % Normal 0.0-7.0 [facility] ([place]) Comment on above: Performed By: #### T GOMEZ, GFR, CMP, PBNP #### [address] [address] Lymphocyte, Absolute 2.1 10 3/mcL Normal 0.8-3.9 [facility] ([place]) Comment on above: Performed By: #### T ARIELLEHS, GFR, CMP, PBNP #### [address] [address] Lymphocytes/100 WBC (Bld) 29.5 % Normal 10.0-50.0 [facility] ([place]) Comment on above: Performed By: #### T ROPHS, GFR, CMP, PBNP #### [address] [address] Monocyte, Absolute 0.6 10 3/mcL Normal 0.2-1.0 [facility]) Comment on above: Performed By: #### T ROPHS, GFR, CMP, PBNP #### [address] [address] Monocytes/100 WBC (Bld) 8.6 % Normal 1.7-13.0 [facility] Comment on above: Performed By: #### T ROPMARILEE, GFR, CMP, PBNP #### [address] [address] Neutrophils/100 WBC (Bld) 58.0 % Normal 37.0-80.0 [facility] ([place]) Comment on above: Performed By: #### T GOMEZ, GFR, CMP, PBNP #### [address] [address] .GFRon 10-26-2022 GFR 100 ml/min/1.73sqm Normal [facility] ([place]) Comment on above: Result Comment: GFR Population [...] #### T ROPHS, GFR, CMP, PBNP #### [address] [address] GFR Non- 82 ml/min/1.73sqm Normal [facility] ([place]) Comment on above: Result Comment: GFR Population [...] #### T GOMEZ, GFR, CMP, PBNP #### [place] [address] .MDWon 10-26-2022 Monocyte Distribution Width 17.60 Normal 0.00-20.00 [facility] ([place]) Comment on above: Result Comment: For ED adult patients suspected of sepsis, MDW<=20.0 does not rule out sepsis or risk of sepsis Performed By: #### T GOMEZ, GFR, CMP, PBNP #### [address] [address] .NEUABSon 10-26-2022 Neutrophil, Absolute 4.1 10 3/mcL Normal 2.9-6.2 [facility] ([place]) Comment on above: Performed By: #### T ROPHS, GFR, CMP, PBNP #### [address] [address] CBCon 10-26-2022 Erythrocyte distribution width (RBC) [Ratio] 17.6 % High 11.5-14.5 [facility] ([place]) Comment on above: Performed By: #### T ROPHS, GFR, CMP, PBNP #### [place] [id number] Hematocrit (Bld) [Volume fraction] 39.9 % Normal 37.0-47.0 [facility] ([place]) Comment on above: Performed By: #### T GOMEZ, GFR, CMP, PBNP #### [address] [address] Hgb 13.3 G/dL Normal 12.0-16.0 [facility] ([place]) Comment on above: Performed By: #### T ROPHS, GFR, CMP, PBNP #### [address] [address] MCH (RBC) [Entitic mass] 32.2 pg High 27.0-31.2 [facility] ([place]) Comment on above: Performed By: #### T GOMEZ, GFR, CMP, PBNP #### [address] [address] MCHC 33.4 G/dL Normal 33.0-37.0 [facility] ([place]) Comment on above: Performed By: #### T ROPHS, GFR, CMP, PBNP #### [address] [address] MCV (RBC) [Entitic vol] 96.4 fL High 80.0-94.0 A [facility] ([place]) Comment on above: Performed By: #### T ROPMARILEE, GFR, CMP, PBNP #### [address] [address] Platelet 387 10 3/mcL Normal 130-400 [facility] ([place]) Comment on above: Performed By: #### T ROPHS, GFR, CMP, PBNP #### [address] [address] Platelet mean volume (Bld) [Entitic vol] 7.1 fL Low 7.4-10.4 [facility] ([place]) Comment on above: Performed By: #### T ROPHS, GFR, CMP, PBNP #### [address] [address] RBC 4.14 10 6/mcL Low 4.20-5.40 [facility] ([place]) Comment on above: Performed By: #### T ROPHS, GFR, CMP, PBNP #### [address] [address] WBC 7.1 10 3/mcL Normal 4.6-10.8 [facility] ([place]) Comment on above: Performed By: #### T ROPHS, GFR, CMP, PBNP #### [address] [address] CMPon 10-26-2022 Albumin Level 3.3 G/dL Low 3.4-4.8 [facility] ([place]) Comment on above: Performed By: #### T GOMEZ, GFR, CMP, PBNP #### [address] [address] Albumin/Globulin [Mass ratio] 0.9 {ratio} Low 1.1-2.5 [facility] ([place]) Comment on above: Performed By: #### T GOMEZ, GFR, CMP, PBNP #### [address] [address] ALP [Catalytic activity/Vol] 83 U/L Normal 40-135 [facility] ([place]) Comment on above: Performed By: #### T ROPMARILEE, GFR, CMP, PBNP #### [address] [address] ALT [Catalytic activity/Vol] 29 U/L Normal 14-59 [facility] ([place]) Comment on above: Performed By: #### T ARIELLEHS, GFR, CMP, PBNP #### [address] [address] AST [Catalytic activity/Vol] 21 U/L Normal 10-40 [facility] ([place]) Comment on above: Performed By: #### T ROPHS, GFR, CMP, PBNP #### [address] [address] Bili Total 0.1 mg/dL Low 0.2-1.0 [facility] ([place]) Comment on above: Result Comment: Use of this assay is not recommended for patients undergoing treatment with eltrombopag due to the potential for falsely elevated results. Performed By: #### T ROPHS, GFR, CMP, PBNP #### [place] [address] BUN/Creatinine Ratio 14 ratio Normal 7-27 [facility] [place] Comment on above: Performed By: #### T ROPHS, GFR, CMP, PBNP #### [place] [address] Calcium [Mass/Vol] 8.5 mg/dL Normal 8.4-10.2 [facility] ([place]) Comment on above: Performed By: #### T ROPHS, GFR, CMP, PBNP #### [place] [address] Chloride [Moles/Vol] 104 mmol/L Normal 98-107 [facility] [place]) Comment on above: Performed By: #### T ROPHS, GFR, CMP, PBNP #### [place] [address] CO2 [Moles/Vol] 28 mmol/L Normal 23-31 [facility] ([place]) Comment on above: Performed By: #### T ROPHS, GFR, CMP, PBNP #### [place] [address] Creatinine [Mass/Vol] 0.71 mg/dL Normal 0.55-1.02 [facility] ([place]) Comment on above: Performed By: #### T ROPHS, GFR, CMP, PBNP #### [place] [address] Electrolyte Balance 8.0 mEq/L Normal 4.0-15.0 Formerly [facility], [facility] ([place]) Comment on above: Performed By: #### T ROPHS, GFR, CMP, PBNP #### [place] [address] Globulin 3.5 G/dL Normal [facility] ([place]) Comment on above: Performed By: #### T ROPHS, GFR, CMP, PBNP #### [place] [id number] Glucose [Mass/Vol] 88 mg/dL Normal 80-115 [facility] ([place]) Comment on above: Performed By: #### T GOMEZ, GFR, CMP, PBNP #### [address] [address] Potassium [Moles/Vol] 4.5 mmol/L Normal 3.5-5.1 [facility] ([place]) Comment on above: Performed By: #### T GOMEZ, GFR, CMP, PBNP #### [address] [address] Sodium [Moles/Vol] 140 mmol/L Normal 136-145 [facility] ([place]) Comment on above: Performed By: #### T GOMEZ, GFR, CMP, PBNP #### [address] [address] Total Protein 6.8 G/dL Normal 6.4-8.2 [facility] ([place]) Comment on above: Performed By: #### T GOMEZ, GFR, CMP, PBNP #### [address] [address] Urea nitrogen [Mass/Vol] 10 mg/dL Normal 7-18 [facility] ([place]) Comment on above: Performed By: #### T GOMEZ, GFR, CMP, PBNP #### [address] [address] [id number] 10-26-2022 SARS-CoV-2 (COVID-19) RNA IVANA+probe Ql (Unsp spec) Negative Normal Negative [facility] ([place]) Comment on above: Performed By: #### T ROPMARILEE, GFR, CMP, PBNP #### [address] [address] SARS-CoV-2 (COVID-19) RNA IVANA+probe Ql (Unsp spec) Normal [facility] ([place]) Comment on above: Result Comment: Nega tive [...] #### T GOMEZ, GFR, CMP, PBNP #### [address] [address] FLURSVon 10-26-2022 Flu A PCR (AO) Negative Normal Negative [facility] ([place]) Comment on above: Result Comment: Posi tive [...] virus (RSV) nucleic acid in nasopharyngeal swab (EMPLOYMENT LAW ATTORNEY) specimens from patients with signs and symptoms of respiratory infection in conjunction with clinical and laboratory findings. The test is intended for use as an aid in the differential diagnosis of influenza A virus, influenza B virus, and RSV in humans and is not intended to detect influenza C. Performed By: #### T GOMEZ, GFR, CMP, PBNP #### [address] [address] Flu B PCR (AO) Negative Normal Negative [facility] ([place]) Comment on above: Result Comment: Posi tive [...] REPEAT COLLECTION AND TESTING IS RECOMMENDED. The 4-Tell Flu A/B & RSV Assay is a real-time polymerase chain reaction (PCR) based qualitative in vitro diagnostic test for the direct detection and differentiation of influenza A virus, influenza B virus, and respiratory syncytial virus (RSV) nucleic acid in nasopharyngeal swab (EMPLOYMENT LAW ATTORNEY) specimens from patients with signs and symptoms of respiratory infection in conjunction with clinical and laboratory findings. The test is intended for use as an aid in the differential diagnosis of influenza A virus, influenza B virus, and RSV in humans and is not intended to detect influenza C. Performed By: #### T GOMEZ, GFR, CMP, PBNP #### [address] [address] RSV PCR (AO) Negative Normal Negative [facility] ([place]) Comment on above: Result Comment: Posi tive [...] virus (RSV) nucleic acid in nasopharyngeal swab (EMPLOYMENT LAW ATTORNEY) specimens from patients with signs and symptoms of respiratory infection in conjunction with clinical and laboratory findings. The test is intended for use as an aid in the differential diagnosis of influenza A virus, influenza B virus, and RSV in humans and is not intended to detect influenza C. Performed By: #### T ROPHS, GFR, CMP, PBNP #### [place] [id number] [place] [address] LABORATORYOrdered By: Jensen Fay on 10-26-2022 FLUAV [...] B (Bld) [Mass/Vol] 521 pg/mL High 0-125 [facility] ([place]) Comment on above: Result Comment: NT-p roBNP results of less than 300 pg/mL effectively rules out acute congestive heart failure with 99% negative predictive value. Performed By: #### T ROPHS, GFR, CMP, PBNP #### [address] [address] TOXSCon 10-26-2022 U Ampheta (AO) Negative Normal [facility] ([place]) Comment on above: Performed By: #### U A, TOXSC #### [address] [address] U Nanci (AO) Negative Normal [facility] ([place]) Comment on above: Performed By: #### U A, TOXSC #### [address] [address] U Heron (AO) Negative Normal [facility] ([place]) Comment on above: Performed By: #### U A, TOXSC #### [address] [address] U Cannab (AO) Negative [facility] ([place]) Comment on above: Performed By: #### U A, TOXSC #### [address] [address] U Cocaine (AO) Negative [facility] ([place]) Comment on above: Performed By: #### U A, TOXSC #### [address] [address] U Methadone (AO) Negative [facility] ([place]) Comment on above: Performed By: #### U A, TOXSC #### [address] [address] U PCP (AO) Negative [facility] ([place]) Comment on above: Performed By: #### U A, TOXSC #### [address] [address] U TCA (AO) Negative [facility] ([place]) Comment on above: Performed By: #### U A, TOXSC #### [address] [address] Urine Opiates (AO) Negative [facility] ([place]) Comment on above: Performed By: #### U A, TOXSC #### [address] [address] TROPHSon 10-26-2022 Troponin I High Sensitivity 15.6 ng/L Normal 0.0-51.4 [facility] ([place]) Comment on above: Performed By: #### T ROPHS, GFR, CMP, PBNP #### [address] [address] UAon 10-26-2022 Color (U) Yellow [facility] ([place]) Comment on above: Performed By: #### U A, TOXSC #### [address] [address] Glucose (U) [Mass/Vol] Negative Normal Negative [facility] ([place]) Comment on above: Performed By: #### U A, TOXSC #### [address] [address] Ketones Ql (U) Negative Normal Negative [facility] ([place]) Comment on above: Performed By: #### U A, TOXSC #### [address] [address] UA Appear Clear Normal Clear [facility] ([place]) Comment on above: Performed By: #### U A, TOXSC #### [address] [address] UA Blood Negative Normal Negative [facility] ([place]) Comment on above: Performed By: #### U A, TOXSC #### [place] [address] UA Leuk Est Negative Normal Negative [facility] ([place]) Comment on above: Performed By: #### U A, TOXSC #### [place] [address] UA Nitrite Negative Normal Negative [facility] ([place]) Comment on above: Performed By: #### U A, TOXSC #### [place] [address] UA pH 5.5 Normal 5.0 - 8.0 [facility] ([place]) Comment on above: Performed By: #### U A, TOXSC #### [place] [address] UA Protein Negative Normal Negative [facility] ([place]) Comment on above: Performed By: #### U A, TOXSC #### [address] [address] UA Spec Grav <=1.005 Abnormal 1.015-1.025 [facility] ([place]) Comment on above: Performed By: #### U A, TOXSC #### [place] [address] UA Specimen Type Not Given Normal [facility] ([place]) Comment on above: Performed By: #### U A, TOXSC #### [address] [place] [address] [place], [place] [address] UA Urobilinogen 0.2 E.U./dL Normal 0.2-1.0 [facility] ([place]) Comment on above: Performed By: #### U A, TOXSC #### Anthony [place] [address] [place], [place] [address] Urobilinogen (U) [Mass/Vol] Negative Normal Negative [facility] ([place]) Comment on above: Performed By: #### U A, TOXSC #### Anthony [place] [address] [place], [place] [address] XR CHEST 1 VIEWon 10-26-2022 XR CHEST [...] 10/26/2022 7:06:29 PM Ordering Provider: BRIAN Rivero [facility]) CT LUNG SCREEN WO IVCONon CT LUNG SCREEN WO IVCON * * *Final Repor t* * * DATE OF EXAM: Jul 26 2022 4:27PM [facility] 0562 - CT LUNG [...] without contrast. MQ: [id number]_6 Patient characteristics: * Jutw-rg-Ehwin: 1955; Age at exam: 67 years * Gender: Female * Lung Disease: Asymptomatic (no signs or symptoms of lung disease) * Number of Pack Years: 55 * Current smoker (=0) or Number of Years since Quit: 0 * Ordering provider and NPI: NICOLE KIMIMARCELLE KENNY [id number] * Interpreting radiologist and NPI: Ervin [id number] Exam acquisition parameters: * Exam Date: 07/26/2022 4:27 PM * Site: [facility] * * CT System Sider: [employer] * CT System Model: Dual Source * [...] Descending stents in place; Right Coronary mild Business Intelligence Manager (topogram) images: No additional findings. IMPRESSION: LungRADS category: 2 LungRADS modifier: None LungRADS 0 reason: n/a Recommendations: Continue annual screening with LDCT in 12 months. Other actionable findings: ====== Reference: [employer]. Lung CT Screening Reporting and Data System (Lung-RADS). Available at: http://www.acr.org/Qual ity-Safety/Resources/Shaina Rutledge[employer] Travel Registered Nurse Icu: SRAVANI Transcribe Date/Time: Jul 27 2022 8:04A Dictated by : VEE GAMINO MD This examination was interpreted and the report reviewed and electronically signed by: VEE GAMINO MD on Jul 27 2022 8:16AM EST [id number] Normal [facility] OXIMETRY WITH AMBULATIONon 0 07-09-2022 [facility] ECHOon 05-21-2022 [facility] .Auto Diffon 05-05-2022 Basophil, Absolute 0.0 10 3/mcL Normal 0.0-0.3 [facility] [place] Comment on above: Performed By: #### T GOMEZ, GFR, CMP, PBNP #### [address] [address] Basophils/100 WBC (Bld) 0.1 % Normal 0.0-2.5 A [facility] ([place]) Comment on above: Performed By: #### T ROPHS, GFR, CMP, PBNP #### [address] [address] Eosinophil, Absolute 0.0 10 3/mcL Normal 0.0-0.7 [facility] ([place]) Comment on above: Performed By: #### T ROPHS, GFR, CMP, PBNP #### [address] [address] Eosinophils/100 WBC (Bld) 0.0 % Normal 0.0-6.0 [facility] ([place]) Comment on above: Performed By: #### T ROPHS, GFR, CMP, PBNP #### [address] [address] Lymphocyte, Absolute 0.6 10 3/mcL Low 0.9-4.3 [facility] ([place]) Comment on above: Performed By: #### T ROPHS, GFR, CMP, PBNP #### [address] [address] Lymphocytes/100 WBC (Bld) 5.1 % Low 20.0-40.0 [facility] ([place]) Comment on above: Performed By: #### T ROPHS, GFR, CMP, PBNP #### [address] [address] Monocyte, Absolute 0.3 10 3/mcL Normal 0.1-1.4 [facility] [place] Comment [place] above: Performed By: #### T ROPHS, GFR, CMP, PBNP #### [address] [address] Monocytes/100 WBC (Bld) 2.4 % Normal 2.0-13.0 [facility] [place] Comment on above: Performed By: #### T ROPHS, GFR, CMP, PBNP #### [address] [address] Neutrophils/100 WBC (Bld) 92.4 % High 50.0-75.0 [facility] ([place]) Comment on above: Performed By: #### T ROPHS, GFR, CMP, PBNP #### [address] [address] .GFRon 05-05-2022 GFR >60 Normal [facility] [place] Comment on above: Result Comment: GFR Population [...] #### T GOMEZ, GFR, CMP, PBNP #### [address] [address] GFR Non- >60 Normal [facility] ([place]) Comment on above: Result Comment: GFR Population [...] #### T GOMEZ, GFR, CMP, PBNP #### [address] [address] .MDWon 05-05-2022 Monocyte Distribution Width Not performed Normal 0.00-20.00 [facility] ([place]) Comment on above: Result Comment: MDW testing performed only on adult ER patients between the ages of 18-89 years. Performed By: #### T GOMEZ, GFR, CMP, PBNP #### [address] [address] .NEUABSon 05-05-2022 Neutrophil, Absolute 10.8 10 3/mcL High 2.3-8.1 A [facility] ([place]) Comment on above: Performed By: #### T GOMEZ, GFR, CMP, PBNP #### [address] [address] BMPon 05-05-2022 BUN/Creatinine Ratio 29.6 ratio High 10.0-22.0 [facility] [place] Comment on above: Performed By: #### T GOMEZ, GFR, CMP, PBNP #### [address] [address] Calcium [Mass/Vol] 8.5 mg/dL Low 8.7-10.4 [facility] ([place]) Comment on above: Performed By: #### T ROPHS, GFR, CMP, PBNP #### [address] [address] Chloride [Moles/Vol] 106 mmol/L Normal 98-110 [facility] [place] Comment on above: Performed By: #### T ROPHS, GFR, CMP, PBNP #### [address] [address] CO2 [Moles/Vol] 32 mmol/L Normal 22-32 [facility] ([place]) Comment on above: Performed By: #### T GOMEZ, GFR, CMP, PBNP #### [address] [address] Creatinine [Mass/Vol] 0.71 mg/dL Normal 0.50-1.20 [facility] ([place]) Comment on above: Performed By: #### T GOMEZ, GFR, CMP, PBNP #### [address] [address] Electrolyte Balance 3.0 mEq/L Low 4.0-15.0 Formerly [facility] ([place]) Comment on above: Performed By: #### T ROPHS, GFR, CMP, PBNP #### [address] [address] Glucose [Mass/Vol] 224 mg/dL High 82-115 [facility] ([place]) Comment on above: Performed By: #### T ROPHS, GFR, CMP, PBNP #### [address] [address] Potassium [Moles/Vol] 4.5 mmol/L Normal 3.5-5.0 [facility] ([place]) Comment on above: Performed By: #### T ROPHS, GFR, CMP, PBNP #### [address] [address] Sodium [Moles/Vol] 141 mmol/L Normal 136-145 [facility] ([place]) Comment on above: Performed By: #### T ROPHS, GFR, CMP, PBNP #### [address] [address] Urea nitrogen [Mass/Vol] 21.0 mg/dL Normal 8.0-22.0 [facility] ([place]) Comment on above: Performed By: #### T ROPHS, GFR, CMP, PBNP #### [address] [address] CBCon 05-05-2022 Erythrocyte distribution width (RBC) [Ratio] 16.5 % High 11.5-15.5 [facility] ([place]) Comment on above: Performed By: #### T ROPHS, GFR, CMP, PBNP #### [address] [address] Hematocrit (Bld) [Volume fraction] 38.3 % Normal 34.0-46.0 [facility] ([place]) Comment on above: Performed By: #### T ARIELLEHS, GFR, CMP, PBNP #### [address] [address] Hgb 12.2 G/dL Normal 12.0-16.0 [facility] ([place]) Comment on above: Performed By: #### T ROPHS, GFR, CMP, PBNP #### [address] [address] MCH (RBC) [Entitic mass] 30.9 pg Normal 27.0-33.0 [facility] ([place]) Comment on above: Performed By: #### T ROPHS, GFR, CMP, PBNP #### [address] [address] MCHC 32.0 G/dL Normal 32.0-36.0 [facility] ([place]) Comment on above: Performed By: #### T ROPHS, GFR, CMP, PBNP #### [address] [address] MCV (RBC) [Entitic vol] 96.7 fL Normal 80.0-99.0 A [facility] ([place]) Comment on above: Performed By: #### T GOMEZ, GFR, CMP, PBNP #### [address] [address] Platelet 285 10 3/mcL Normal 150-450 [facility] ([place]) Comment on above: Performed By: #### T GOMEZ, GFR, CMP, PBNP #### [place] [address] [address] Platelet mean volume (Bld) [Entitic vol] 8.9 fL Normal 6.6-10.5 [facility] ([place]) Comment on above: Performed By: #### T GOMEZ, GFR, CMP, PBNP #### [place] [address] [address] RBC 3.96 10 6/mcL Low 4.10-5.30 [facility] ([place]) Comment on above: Performed By: #### T GOMEZ, GFR, CMP, PBNP #### [address] [address] WBC 11.6 10 3/mcL High 4.5-10.8 [facility] ([place]) Comment on above: Performed By: #### T GOMEZ, GFR, CMP, PBNP #### [address] [address] LABORATORYOrdered By: SYSTEM SYSTEM on 05-05-2022 Basophils [...] Basophil, Absolute 0.0 10 3/mcL Normal 0.0-0.3 [facility] [place] Comment [place] above: Performed By: #### T GOMEZ, GFR, CMP, PBNP #### [address] [address] Basophils/100 WBC (Bld) 0.2 % Normal 0.0-2.5 A [facility] ([place]) Comment on above: Performed By: #### T GOMEZ, GFR, CMP, PBNP #### [place] [address] [place], [place] [address] Eosinophil, Absolute 0.0 10 3/mcL Normal 0.0-0.7 [facility] ([place]) Comment on above: Performed By: #### T ROPHS, GFR, CMP, PBNP #### [address] [address] Eosinophils/100 WBC (Bld) 0.0 % Normal 0.0-6.0 [facility] ([place]) Comment on above: Performed By: #### T ROPHS, GFR, CMP, PBNP #### [address] [address] Lymphocyte, Absolute 0.6 10 3/mcL Low 0.9-4.3 [facility] ([place]) Comment on above: Performed By: #### T ROPHS, GFR, CMP, PBNP #### [address] [address] Lymphocytes/100 WBC (Bld) 5.0 % Low 20.0-40.0 [facility] ([place]) Comment on above: Performed By: #### T ROPHS, GFR, CMP, PBNP #### [address] [address] Monocyte, Absolute 0.3 10 3/mcL Normal 0.1-1.4 [facility] [place] Comment [place] above: Performed By: #### T ROPHS, GFR, CMP, PBNP #### [address] [address] Monocytes/100 WBC (Bld) 2.4 % Normal 2.0-13.0 [facility] [place] Comment [place] above: Performed By: #### T ROPHS, GFR, CMP, PBNP #### [address] [address] Neutrophils/100 WBC (Bld) 92.4 % High 50.0-75.0 [facility] ([place]) Comment on above: Performed By: #### T ROPHS, GFR, CMP, PBNP #### [address] [address] .GFRon 05-04-2022 GFR >60 Normal [facility] [place] Comment on above: Result Comment: GFR Population [...] T GOMEZ, GFR, CMP, PBNP #### [place] [address] [address] GFR Non- >60 Normal [facility] ([place]) Comment on above: Result Comment: GFR Population [...] T GOMEZ, GFR, CMP, PBNP #### [place] [address] [address] .MDWon 05-04-2022 Monocyte Distribution Width Not performed Normal 0.00-20.00 [facility] ([place]) Comment on above: Result Comment: MDW testing performed only on adult ER patients between the ages of 18-89 years. Performed By: #### T GOMEZ, GFR, CMP, PBNP #### [place] [address] [address] .NEUABSon 05-04-2022 Neutrophil, Absolute 10.5 10 3/mcL High 2.3-8.1 A [facility] ([place]) Comment on above: Performed By: #### T GOMEZ, GFR, CMP, PBNP #### [address] [address] BMPon 05-04-2022 BUN/Creatinine Ratio 24.7 ratio High 10.0-22.0 [facility] [place] Comment on above: Performed By: #### T GOMEZ, GFR, CMP, PBNP #### [address] [address] Calcium [Mass/Vol] 8.7 mg/dL Normal 8.7-10.4 [facility] ([place]) Comment on above: Performed By: #### T GOMEZ, GFR, CMP, PBNP #### [address] [address] Chloride [Moles/Vol] 108 mmol/L Normal 98-110 [facility] [place] Comment on above: Performed By: #### T GOMEZ, GFR, CMP, PBNP #### [address] [address] CO2 [Moles/Vol] 30 mmol/L Normal 22-32 [facility] ([place]) Comment on above: Performed By: #### T GOMEZ, GFR, CMP, PBNP #### [address] [address] Creatinine [Mass/Vol] 0.85 mg/dL Normal 0.50-1.20 [facility] ([place]) Comment on above: Performed By: #### T ROPHS, GFR, CMP, PBNP #### [address] [address] Electrolyte Balance 3.0 mEq/L Low 4.0-15.0 [facility] ([place]) Comment on above: Performed By: #### T ROPHS, GFR, CMP, PBNP #### [address] [address] Glucose [Mass/Vol] 150 mg/dL High 82-115 [facility] ([place]) Comment on above: Performed By: #### T ROPHS, GFR, CMP, PBNP #### [address] [address] Potassium [Moles/Vol] 4.8 mmol/L Normal 3.5-5.0 [facility] ([place]) Comment on above: Performed By: #### T ROPHS, GFR, CMP, PBNP #### [place] [id number] Sodium [Moles/Vol] 141 mmol/L Normal 136-145 [facility] ([place]) Comment on above: Performed By: #### T ROPHS, GFR, CMP, PBNP #### [place] [address] Urea nitrogen [Mass/Vol] 21.0 mg/dL Normal 8.0-22.0 [facility] ([place]) Comment on above: Performed By: #### T GOMEZ, GFR, CMP, PBNP #### [address] [address] CBCon 05-04-2022 Erythrocyte distribution width (RBC) [Ratio] 16.6 % High 11.5-15.5 [facility] ([place]) Comment on above: Performed By: #### T ROPHS, GFR, CMP, PBNP #### [address] [address] Hematocrit (Bld) [Volume fraction] 39.9 % Normal 34.0-46.0 [facility] ([place]) Comment on above: Performed By: #### T ROPHS, GFR, CMP, PBNP #### [place] [id number] Hgb 12.8 G/dL Normal 12.0-16.0 [facility] ([place]) Comment on above: Performed By: #### T ROPHS, GFR, CMP, PBNP #### [address] [address] MCH (RBC) [Entitic mass] 30.8 pg Normal 27.0-33.0 [facility] ([place]) Comment on above: Performed By: #### T ROPHS, GFR, CMP, PBNP #### [address] [address] MCHC 32.0 G/dL Normal 32.0-36.0 [facility] ([place]) Comment on above: Performed By: #### T ROPHS, GFR, CMP, PBNP #### [address] [address] MCV (RBC) [Entitic vol] 96.4 fL Normal 80.0-99.0 A [facility] ([place]) Comment on above: Performed By: #### T ROPHS, GFR, CMP, PBNP #### [place] [id number] Platelet 282 10 3/mcL Normal 150-450 [facility] ([place]) Comment on above: Performed By: #### T GOMEZ, GFR, CMP, PBNP #### [place] [address] Platelet mean volume (Bld) [Entitic vol] 8.9 fL Normal 6.6-10.5 [facility] ([place]) Comment on above: Performed By: #### T GOMEZ, GFR, CMP, PBNP #### [address] [address] RBC 4.14 10 6/mcL Normal 4.10-5.30 [facility] ([place]) Comment on above: Performed By: #### T ROPHS, GFR, CMP, PBNP #### [place] [id number] WBC 11.4 10 3/mcL High 4.5-10.8 [facility] ([place]) Comment on above: Performed By: #### T ROPHS, GFR, CMP, PBNP #### [address] [address] LABORATORYOrdered By: SYSTEM SYSTEM on 05-04-2022 Basophils [...] Basophil, Absolute 0.1 10 3/mcL Normal 0.0-0.3 [facility] [place] Comment on above: Performed By: #### T ROPHS, GFR, CMP, PBNP #### Anthony [place] [address] [place], [place] [address] Basophils/100 WBC (Bld) 0.7 % Normal 0.0-2.5 A [facility] ([place]) Comment on above: Performed By: #### T ROPHS, GFR, CMP, PBNP #### [address] [address] Eosinophil, Absolute 0.0 10 3/mcL Normal 0.0-0.7 [facility] ([place]) Comment on above: Performed By: #### T ROPHS, GFR, CMP, PBNP #### [address] [address] Eosinophils/100 WBC (Bld) 0.3 % Normal 0.0-6.0 [facility] ([place]) Comment on above: Performed By: #### T ROPHS, GFR, CMP, PBNP #### [address] [address] Lymphocyte, Absolute 2.3 10 3/mcL Normal 0.9-4.3 [facility] ([place]) Comment on above: Performed By: #### T ROPHS, GFR, CMP, PBNP #### [address] [address] Lymphocytes/100 WBC (Bld) 25.2 % Normal 20.0-40.0 [facility] ([place]) Comment on above: Performed By: #### T ROPHS, GFR, CMP, PBNP #### [address] [address] Monocyte, Absolute 1.0 10 3/mcL Normal 0.1-1.4 [facility] [place] Comment on above: Performed By: #### T ROPHS, GFR, CMP, PBNP #### [address] [address] Monocytes/100 WBC (Bld) 10.8 % Normal 2.0-13.0 A [facility] ([place]) Comment on above: Performed By: #### T ROPHS, GFR, CMP, PBNP #### [address] [address] Neutrophils/100 WBC (Bld) 63.0 % Normal 50.0-75.0 [facility] ([place]) Comment on above: Performed By: #### T GOMEZ, GFR, CMP, PBNP #### [address] [address] .GFRon 05-03-2022 GFR Non- >60 Normal [facility] ([place]) Comment on above: Result Comment: GFR Population [...] #### T GOMEZ, GFR, CMP, PBNP #### [address] [address] GFR >60 Normal [facility] [place] Comment on above: Result Comment: GFR Population [...] T GOMEZ, GFR, CMP, PBNP #### [address] [address] .MDWon 05-03-2022 Monocyte Distribution Width Not performed Normal 0.00-20.00 [facility] ([place]) Comment on above: Result Comment: MDW testing performed only on adult ER patients between the ages of 18-89 years. Performed By: #### T ROPHS, GFR, CMP, PBNP #### [address] [address] .NEUABSon 05-03-2022 Neutrophil, Absolute 5.6 10 3/mcL Normal 2.3-8.1 [facility] ([place]) Comment on above: Performed By: #### T ROPHS, GFR, CMP, PBNP #### [address] [address] BMPon 05-03-2022 BUN/Creatinine Ratio 17.9 ratio Normal 10.0-22.0 [facility] [place] Comment on above: Performed By: #### T ROPHS, GFR, CMP, PBNP #### [address] [address] Calcium [Mass/Vol] 8.7 mg/dL Normal 8.7-10.4 [facility] ([place] Comment on above: Performed By: #### T ROPHS, GFR, CMP, PBNP #### [address] [address] Chloride [Moles/Vol] 110 mmol/L Normal 98-110 [facility] [place] Comment on above: Performed By: #### T ROPHS, GFR, CMP, PBNP #### [address] [address] CO2 [Moles/Vol] 28 mmol/L Normal 22-32 [facility] ([place]) Comment on above: Performed By: #### T ROPHS, GFR, CMP, PBNP #### [address] [address] Creatinine [Mass/Vol] 0.84 mg/dL Normal 0.50-1.20 [facility] ([place]) Comment on above: Performed By: #### T ROPHS, GFR, CMP, PBNP #### [address] [address] Electrolyte Balance 6.0 mEq/L Normal 4.0-15.0 [facility]ly [facility] ([place]) Comment on above: Performed By: #### T ROPHS, GFR, CMP, PBNP #### [address] [address] Glucose [Mass/Vol] 96 mg/dL Normal 82-115 [facility] ([place]) Comment on above: Performed By: #### T ROPHS, GFR, CMP, PBNP #### [address] [address] Potassium [Moles/Vol] 4.5 mmol/L Normal 3.5-5.0 [facility] ([place]) Comment on above: Performed By: #### T ROPHS, GFR, CMP, PBNP #### [address] [address] Sodium [Moles/Vol] 144 mmol/L Normal 136-145 [facility] ([place]) Comment on above: Performed By: #### T ARIELLEHS, GFR, CMP, PBNP #### [address] [address] Urea nitrogen [Mass/Vol] 15.0 mg/dL Normal 8.0-22.0 [facility] ([place]) Comment on above: Performed By: #### T ROPHS, GFR, CMP, PBNP #### [address] [address] CBCon 05-03-2022 Erythrocyte distribution width (RBC) [Ratio] 16.3 % High 11.5-15.5 [facility] ([place]) Comment on above: Performed By: #### T ROPHS, GFR, CMP, PBNP #### [address] [address] Hematocrit (Bld) [Volume fraction] 40.5 % Normal 34.0-46.0 [facility] ([place]) Comment on above: Performed By: #### T ROPHS, GFR, CMP, PBNP #### [address] [address] Hgb 13.2 G/dL Normal 12.0-16.0 [facility] ([place]) Comment on above: Performed By: #### T ROPHS, GFR, CMP, PBNP #### [address] [address] MCH (RBC) [Entitic mass] 31.4 pg Normal 27.0-33.0 [facility] ([place]) Comment on above: Performed By: #### T ROPHS, GFR, CMP, PBNP #### [address] [address] MCHC 32.6 G/dL Normal 32.0-36.0 [facility] ([place]) Comment on above: Performed By: #### T ROPHS, GFR, CMP, PBNP #### Anthony [address] [address] MCV (RBC) [Entitic vol] 96.1 fL Normal 80.0-99.0 [facility] ([place]) Comment on above: Performed By: #### T ROPHS, GFR, CMP, PBNP #### [address] [address] Platelet 290 10 3/mcL Normal 150-450 [facility] ([place]) Comment on above: Performed By: #### T ROPHS, GFR, CMP, PBNP #### [address] [address] Platelet mean volume (Bld) [Entitic vol] 8.9 fL Normal 6.6-10.5 [facility] ([place]) Comment on above: Performed By: #### T ROPHS, GFR, CMP, PBNP #### [address] [address] RBC 4.21 10 6/mcL Normal 4.10-5.30 [facility] ([place]) Comment on above: Performed By: #### T ROPHS, GFR, CMP, PBNP #### [address] [address] WBC 8.9 10 3/mcL Normal 4.5-10.8 [facility] ([place]) Comment on above: Performed By: #### T ROPHS, GFR, CMP, PBNP #### [facility] [address] [place], [place] [address] LABORATORYOrdered By: SYSTEM SYSTEM on 05-03-2022 Basophils [...] 05-03-2022 Magnesium [Mass/Vol] 1.8 mg/dL Normal 1.6-2.4 [facility] ([place] Comment on above: Performed By: #### T ROPHS, GFR, CMP, PBNP #### [address] [address] .Auto Diffon 05-02-2022 Basophil, Absolute 0.1 10 3/mcL Normal 0.0-0.2 [facility] [place] Comment on above: Performed By: #### T ROPHS, GFR, CMP, PBNP #### [address] [address] Basophils/100 WBC (Bld) 0.9 % Normal 0.0-2.5 [facility] ([place]) Comment on above: Performed By: #### T ROPHS, GFR, CMP, PBNP #### [address] [address] Eosinophil, Absolute 0.1 10 3/mcL Normal 0.0-0.4 [facility] ([place]) Comment on above: Performed By: #### T ROPHS, GFR, CMP, PBNP #### [address] [address] Eosinophils/100 WBC (Bld) 0.8 % Normal 0.0-7.0 [facility] ([place]) Comment on above: Performed By: #### T ROPHS, GFR, CMP, PBNP #### [address] [address] Lymphocyte, Absolute 2.1 10 3/mcL Normal 0.8-3.9 [facility] ([place]) Comment on above: Performed By: #### T ROPHS, GFR, CMP, PBNP #### [address] [address] Lymphocytes/100 WBC (Bld) 16.7 % Normal 10.0-50.0 [facility] ([place]) Comment on above: Performed By: #### T ROPMARILEE, GFR, CMP, PBNP #### [address] [address] Monocyte, Absolute 0.9 10 3/mcL Normal 0.2-1.0 [facility] [place] Comment on above: Performed By: #### T ROPHS, GFR, CMP, PBNP #### [address] [address] Monocytes/100 WBC (Bld) 7.0 % Normal 1.7-13.0 [facility] [place] Comment on above: Performed By: #### T GOMEZ, GFR, CMP, PBNP #### [address] [address] Neutrophils/100 WBC (Bld) 74.6 % Normal 37.0-80.0 [facility] ([place]) Comment on above: Performed By: #### T GOMEZ, GFR, CMP, PBNP #### [address] [address] .GFRon 05-02-2022 GFR 61 ml/min/1.73sqm Normal [facility] ([place]) Comment on above: Result Comment: GFR Population [...] #### T ROPHS, GFR, CMP, PBNP #### [address] [address] GFR Non- 50 ml/min/1.73sqm Normal [facility] ([place]) Comment on above: Result Comment: GFR Population [...] #### T GOMEZ, GFR, CMP, PBNP #### [address] [address] .MDWon 05-02-2022 Monocyte Distribution Width 17.05 Normal 0.00-20.00 [facility] ([place]) Comment on above: Result Comment: For ED adult patients suspected of sepsis, MDW<=20.0 does not rule out sepsis or risk of sepsis Performed By: #### T GOMEZ, GFR, CMP, PBNP #### [address] [address] .NEUABSon 05-02-2022 Neutrophil, Absolute 9.4 10 3/mcL High 2.9-6.2 [facility] ([place]) Comment on above: Performed By: #### T GOMEZ, GFR, CMP, PBNP #### [address] [address] BMPon 05-02-2022 BUN/Creatinine Ratio 9 ratio Normal 7-27 [facility] [place] Comment on above: Performed By: #### T GOMEZ, GFR, CMP, PBNP #### [address] [address] Calcium [Mass/Vol] 8.8 mg/dL Normal 8.4-10.2 [facility] ([place]) Comment on above: Performed By: #### T ROPHS, GFR, CMP, PBNP #### [address] [address] Chloride [Moles/Vol] 102 mmol/L Normal 98-107 [facility] [place]) Comment on above: Performed By: #### T ROPHS, GFR, CMP, PBNP #### [address] [address] CO2 [Moles/Vol] 29 mmol/L Normal 23-31 [facility] ([place]) Comment on above: Performed By: #### T ROPHS, GFR, CMP, PBNP #### [address] [address] Creatinine [Mass/Vol] 1.09 mg/dL High 0.55-1.02 [facility] ([place]) Comment on above: Performed By: #### T GOMEZ, GFR, CMP, PBNP #### [address] [address] Electrolyte Balance 7.0 mEq/L Normal 4.0-15.0 [facility] ([place]) Comment on above: Performed By: #### T GOMEZ, GFR, CMP, PBNP #### [address] [address] Glucose [Mass/Vol] 194 mg/dL High 80-115 [facility] ([place]) Comment on above: Performed By: #### T ROPHS, GFR, CMP, PBNP #### [address] [address] Potassium [Moles/Vol] 4.1 mmol/L Normal 3.5-5.1 [facility] ([place]) Comment on above: Performed By: #### T ROPHS, GFR, CMP, PBNP #### [address] [address] Sodium [Moles/Vol] 138 mmol/L Normal 136-145 [facility] ([place]) Comment on above: Performed By: #### T ROPHS, GFR, CMP, PBNP #### [place] [id number] Urea nitrogen [Mass/Vol] 10 mg/dL Normal 7-18 [facility] ([place]) Comment on above: Performed By: #### T ROPHS, GFR, CMP, PBNP #### [address] [address] CBCon 05-02-2022 Erythrocyte distribution width (RBC) [Ratio] 17.0 % High 11.5-14.5 [facility] ([place]) Comment on above: Performed By: #### T ROPHS, GFR, CMP, PBNP #### [place] [address] Hematocrit (Bld) [Volume fraction] 45.4 % Normal 37.0-47.0 [facility] ([place]) Comment on above: Performed By: #### T ROPHS, GFR, CMP, PBNP #### [place] [address] Hgb 14.9 G/dL Normal 12.0-16.0 [facility] ([place]) Comment on above: Performed By: #### T ROPHS, GFR, CMP, PBNP #### [place] [address] MCH (RBC) [Entitic mass] 31.4 pg High 27.0-31.2 [facility] ([place]) Comment on above: Performed By: #### T ROPHS, GFR, CMP, PBNP #### [place] [address] MCHC 32.9 G/dL Low 33.0-37.0 [facility] ([place]) Comment on above: Performed By: #### T ROPHS, GFR, CMP, PBNP #### [place] [id number] MCV (RBC) [Entitic vol] 95.5 fL High 80.0-94.0 [facility] ([place]) Comment on above: Performed By: #### T ROPHS, GFR, CMP, PBNP #### [address] [address] Platelet 351 10 3/mcL Normal 130-400 [facility] ([place]) Comment on above: Performed By: #### T ROPHS, GFR, CMP, PBNP #### [address] [address] Platelet mean volume (Bld) [Entitic vol] 9.0 fL Normal 7.4-10.4 [facility] ([place]) Comment on above: Performed By: #### T ROPHS, GFR, CMP, PBNP #### Anthony [address] [address] RBC 4.76 10 6/mcL Normal 4.20-5.40 [facility] ([place]) Comment on above: Performed By: #### T ROPHS, GFR, CMP, PBNP #### Anthony [place] [address] WBC 12.6 10 3/mcL High 4.6-10.8 [facility] ([place]) Comment on above: Performed By: #### T ROPHS, GFR, CMP, PBNP #### [address] [address] [id number] 05-02-2022 Date of Onset [id number] Invalid Interpretation Code [facility] ([place]) Comment on above: Performed By: #### T ROPHS, GFR, CMP, PBNP #### [address] [address] Employed in Healthcare No Normal [facility] ([place]) Comment on above: Performed By: #### T ROPHS, GFR, CMP, PBNP #### Anthony [address] [address] First Test No [facility] ([place]) Comment on above: Performed By: #### T ROPHS, GFR, CMP, PBNP #### Anthony [address] [address] Hospitalized Yes Normal [facility] ([place]) Comment on above: Performed By: #### T ROPHS, GFR, CMP, PBNP #### Anthony [place] [address] ICU No Normal [facility] ([place]) Comment on above: Performed By: #### T ROPHS, GFR, CMP, PBNP #### [place] [address] Not [facility] ([place]) Comment on above: Performed By: #### T ROPHS, GFR, CMP, PBNP #### [place] [address] Resides in Congregate Care Setting No Normal [facility] ([place]) Comment on above: Performed By: #### T ROPHS, GFR, CMP, PBNP #### [place] [address] SARS-CoV-2 (COVID-19) RNA IVANA+probe Ql (Unsp spec) Negative Normal Negative [facility] ([place]) Comment on above: Performed By: #### T ROPHS, GFR, CMP, PBNP #### [place] [address] SARS-CoV-2 (COVID-19) RNA IVANA+probe Ql (Unsp spec) Normal [facility] ([place]) Comment on above: Result Comment: Nega tive [...] #### T ROPHS, GFR, CMP, PBNP #### [facility] [address] [place], [place] [address] Symptomatic as Defined by CDC Yes Normal [facility] ([place]) Comment on above: Performed By: #### T ARIELLEHS, GFR, CMP, PBNP #### [facility] [address] [place], [place] [address] LABORATORYOrdered By: Gina Feliz on 05-02-2022 Blood [...] B (Bld) [Mass/Vol] 344 pg/mL High 0-125 [facility] ([place]) Comment on above: Result Comment: NT-p roBNP results of less than 300 pg/mL effectively rules out acute congestive heart failure with 99% negative predictive value. Performed By: #### T GOMEZ, GFR, CMP, PBNP #### [address] [address] TROPHSon 05-02-2022 Troponin I High Sensitivity 13.0 ng/L Normal 0.0-51.4 [facility] ([place]) Comment on above: Performed By: #### T GOMEZ, GFR, CMP, PBNP #### [address] [address] XR CHEST 1 VIEWon 05-02-2022 XR CHEST [...] 05/02/2022 5:25:03 AM Ordering Provider: EMMANUEL KILLIAN [facility] ([place]) XR ELBOW 2V AP/LAT RTon 11-3 XR [...] healing of fracture of the olecranon process. Travel Registered Nurse Icu: SRAVANI Transcribe Date/Time: Oct 10 2021 2:44P Dictated by : ERENDIRA PAREDES MD This examination was interpreted and the report reviewed and electronically signed by: ERENDIRA PAREDES MD on Oct 10 2021 2:51PM EST [id number] [facility] 09-28-2021 [facility] Telephone (AGCARDPOB ) STEVEN KOENIG ([id number]) 1955 F Date Time Provider Department 09/28/21 TRACY RAMIRES During your visit today, we recorded the following information about you: Mely Trinidad LPN 09/28/2021 10:10 AM Signed ----- Message from Tracy Ramires APRN.AIR POLLUTION INSPECTOR sent at 09/28/2021 8:08 AM EST ----- [...] Date Reviewed: 09/28/2021 Reviewed by: Tracy Ramires APRN.AIR POLLUTION INSPECTOR - Fully Assessed Reason for Visit: Results [...] BLOOD SPECIMEN Performed By: #### 5 8410-2 ####[facility] LABORATORYCLIA [id number] [address] STATES OF [facility] Hematocrit (Bld) [Volume fraction] 47.2 % High 36.0-46.0 [facility] Comment on above: Order Comment: Speci men Type: BLOOD SPECIMEN Performed By: #### 5 8410-2 ####[facility] LABORATORYCLIA [id number] [address] [place] Hemoglobin (Bld) [Mass/Vol] 14.5 g/dL Normal 11.5-15.5 [facility] Comment on above: Order Comment: Speci men Type: BLOOD SPECIMEN Performed By: #### 5 8410-2 ####[facility] LABORATORYCLIA [id number] [address] MCH (RBC) [Entitic mass] 31.7 pg Normal 26.0-34.0 [facility] Comment on above: Order Comment: Speci men Type: BLOOD SPECIMEN Performed By: #### 5 8410-2 ####[facility] LABORATORYCLIA [id number] [address] MCHC (RBC) [Mass/Vol] 30.7 g/dL Normal 30.5-36.0 [facility] Comment on above: Order Comment: Speci men Type: BLOOD SPECIMEN Performed By: #### 5 8410-2 ####[facility] LABORATORYCLIA [id number] [address] MCV (RBC) [Entitic vol] 103.3 fL High 80.0-100.0 [facility] Comment on above: Order Comment: Speci men Type: BLOOD SPECIMEN Performed By: #### 5 8410-2 ####[facility] LABORATORYCLIA [id number] [address] Nucleated RBC (Bld) [#/Vol] 10*3/uL Normal <0.01 [facility] Comment on above: Order Comment: Speci men Type: BLOOD SPECIMEN Performed By: #### 5 8410-2 ####[facility] LABORATORYCLIA [id number] [address] Platelet mean volume (Bld) [Entitic vol] 10.0 fL Normal 9.0-12.7 [facility] Comment on above: Order Comment: Speci men Type: BLOOD SPECIMEN Performed By: #### 5 8410-2 ####[facility] LABORATORYCLIA [id number] [address] Platelets (Bld) [#/Vol] 398 10*3/uL Normal 150-400 [facility] Comment on above: Order Comment: Speci men Type: BLOOD SPECIMEN Performed By: #### 5 8410-2 ####[facility] LABORATORYCLIA [id number] [address] RBC (Bld) [#/Vol] 4.57 10*6/uL Normal 3.90-5.20 [facility] Comment on above: Order Comment: Speci men Type: BLOOD SPECIMEN Performed By: #### 5 8410-2 ####[facility] LABORATORYCLIA [id number] [address] WBC (Bld) [#/Vol] 7.70 10*3/uL Normal 3.70-11.00 [facility] Comment on above: Order Comment: Speci men Type: BLOOD SPECIMEN Performed By: #### 5 8410-2 ####[facility] LABORATORYCLIA [id number] [address] CNOVon 09-27-2021 CNOV Office Visit (AGCARDPOB) STEVEN KOENIG ([id number]) 1955 F Date Time Provider Department 09/27/21 [...] seen by myself on 06/12/2021 at our [place] office. Stress testing was done d/t symptoms and need for cardiac clearance. TID ratio was elevated so she was recommended a [facility] and ultimately had PCI of [...] Alcohol use disorder 01/18/2016 Dr. Angie Jones, [facility] - Anxiety 12/14/2015 - Bipolar affective disorder, currently active ([facility]) 01/18/2016 Dr. Angie Jones, [facility] - Chronic bronchitis ([facility]) 07/26/2016 - Closed skull fracture ([facility]) 1994 [facility] - Coronary artery disease - DDD (degenerative disc disease), cervical - Endometriosis 2007 - Essential hypertension 12/14/2015 - GERD (gastroesophageal reflux disease) 03/13/2019 - History of colon polyps - History of gastric ulcer 12/14/2015 - HLD (hyperlipidemia) - Injury of left facial nerve 1994 - PAD (peripheral artery disease) ([facility]) 09/28/2019 - Recurrent major depression in partial remission ([facility]) 12/14/2015 - S/P drug eluting coronary stent placement 08/25/2021 LAD and Dg2 - Spinal stenosis PAST SURGICAL HISTORY Procedure Laterality Date - APPENDECTOMY 1979 - COLONOSCOP W/ OR W/O [facility] SPEC 2010 Colonoscopy - COLONOSCOPY 04/03/2017 diverticulosis- repeat 10 years - [place] FACIAL NERVE,TOTAL Left 1989 [facility] - EGD 04/03/2017 Gastritis, duodenitis, GERD [...] 21 Cholesterol [Mass/Vol] 189 mg/dL Normal <[address] [facility] Comment on above: Order Comment: Speci men Type: BLOOD SPECIMEN Result Comment: <200 mg/dL, Desirable 200-239 mg/dL, Borderline high >239 mg/dL, High Performed By: #### L IPB #### [facility] CLIA [id number] [address] Cholesterol in HDL [Mass/Vol] 70 mg/dL Normal >39 [facility] Comment on above: Order Comment: Speci men Type: BLOOD SPECIMEN Result Comment: 40-5 9 mg/dL, Acceptable >59 mg/dL, High: Negative risk factor for coronary heart disease <40 mg/dL, Low: Positive risk factor for coronary heart disease Performed By: #### L IPB #### [facility] CLIA [id number] [address] Cholesterol in LDL [Mass/Vol] 101 mg/dL High <100 [facility] Comment on above: Order Comment: Speci men Type: BLOOD SPECIMEN Result Comment: <100 mg/dL, Optimal 100-129 mg/dL, Near optimal/above optimal 130-159 mg/dL, Borderline high 160-189 mg/dL, High >189 mg/dL, Very high Secondary prevention optimal LDL Cholesterol levels are recommended to be < 70 mg/dL Performed By: #### L IPB #### [facility] CLIA [id number] [address] Cholesterol in LDL/Cholesterol in HDL [Mass ratio] 1.44 {ratio} Normal <2.54 [facility] Comment on above: Order Comment: Speci men Type: BLOOD SPECIMEN Result Comment: Refe rence: 1. National Cholesterol Education Program ATP III Guideline At-A-Glance Quick Desk Reference: National Heart, Lung, and Blood [place]. National Institutes of Health. 2001: NIH Publication No. 01-3305. 2. An International Atherosclerosis Society position paper: global recommendations for the management of dyslipidemia: executive summary, Atherosclerosis. 2014: 232(2):410-413. Performed By: #### L IPB #### [facility] CLIA [id number] [address] Cholesterol in VLDL [Mass/Vol] 18 mg/dL Normal <30 [facility] Comment on above: Order Comment: Speci men Type: BLOOD SPECIMEN Performed By: #### L IPB #### [facility] CLIA [id number] [address] Cholesterol non HDL [Mass/Vol] 119 mg/dL Normal <130 [facility] Comment on above: Order Comment: Speci men Type: BLOOD SPECIMEN Result Comment: <130 mg/dL, Optimal 130-159 mg/dL, Near optimal/above optimal 160-189 mg/dL, Borderline high 190-219 mg/dL, High >219 mg/dL, Very high Secondary prevention optimal non HDL Cholesterol levels are recommended to be <100 mg/dL Performed By: #### L IPB #### [facility] CLIA [id number] [address] Cholesterol.total/Izabella sterol in HDL [Mass ratio] 2.70 {ratio} Normal <5.10 [facility] Comment on above: Order Comment: Speci men Type: BLOOD SPECIMEN Performed By: #### L IPB #### [facility] CLIA [id number] [address] FASTING TIME 12 hrs Normal [facility] Comment on above: Order Comment: Speci men Type: BLOOD SPECIMEN Performed By: #### L IPB #### [facility] CLIA [id number] [address] Triglyceride [Mass/Vol] 88 mg/dL Normal <150 [facility] Comment on above: Order Comment: Speci men Type: BLOOD SPECIMEN Result Comment: <150 mg/dL, Normal 150-199 mg/dL, Borderline high 200-499 mg/dL, High >499 mg/dL, Very high Performed By: #### L IPB #### [facility] CLIA [id number] [address] Frank 09-01-2021 JEOVANNY Telephone (EARNESTINE) CLARISSESTEVEN NOVOA ([id number]) 1955 F Date Time Provider Department 09/01/21 [...] 07/07/2020 PAD (peripheral artery disease) ([facility]) [I73.9] 09/28/2019 Anxiety and depression [F41.9, F32.A] 10/06/2019 Hypomagnesemia [E83.42] 10/22/2019 10/23/2019 Asthma [J45.909] 07/07/2020 07/07/2020 Prediabetes [R73.03] 02/04/2021 Chest pain [R07.9] 05/08/2021 Other chest pain [R07.89] 05/08/2021 Stenosis of carotid artery [I65.29] 05/08/2021 Mixed hyperlipidemia [E78.2] 05/08/2021 Abnormal stress test [R94.39] 08/26/2021 Dyspnea on exertion [R06.00] 08/26/2021 Encounter Status:Closed by TRACY RAMIRES on 09/01/21 [facility] CNPN Telephone (AKCRL) STEVEN KOENIG ([id number]) 1955 F Date Time Provider Department 09/01/21 GUILLERMO MCGILL During your visit today, we recorded the following information about you: Guillermo Mcgill Bottom Man 09/01/2021 10:44 AM Signed Faxed to [place] based on location. Guillermo Mcgill CEP, Cardiopulmonary Rehab [id number] Allergies As of Date: 09/01/2021 (No Known Allergies) Date Reviewed: 08/31/2021 Reviewed by: Babatunde Lomeli MD - Fully Assessed Reason for Visit: Cardiac Rehab [2607] Prescriptions as of 09/01/2021 - oxyCODONE-acetaminophen (PERCOCET) [...] by GUILLERMO MCGILL on [facility]01[facility]21 [facility]: [id number] Author: Claude Thao MD Service: Interventional Cardiology [...] NOTon 08-25-2021 BRIEF OP NOT HNO ID: [id number] Author: Juan Ramon Pichardo MD Service: Cardiovascular [...] LAD portion of the stent 3.7mm, with adventist of blood flow, no residual stenosis. No complications. Recommend: ASA/Plavix Continue other guideline directed medical therapy Juan Ramon Kemp MD Pin Maker of Internal Medicine [facility] Section of Interventional Cardiology Storage Management Consultant of Structural Heart Disease [address], [address] [place] [address] Facsimile: [phone] Email: [email or web address] Normal [facility] Basic metabolic 2000 panelon 08-25-2021 Anion gap [Moles/Vol] 14 mmol/L Normal 9-18 [facility] Comment on above: Order Comment: Speci men Type: BLOOD SPECIMEN Performed By: #### 2 4321-2 ####[facility] LABORATORYCLIA [id number] [place] [address] [place] Calcium [Mass/Vol] 9.2 mg/dL Normal 8.5-10.2 [facility] Comment on above: Order Comment: Speci men Type: BLOOD SPECIMEN Performed By: #### 2 4321-2 ####[facility]ORATORYCLIA [id number] [address] Chloride [Moles/Vol] 102 mmol/L Normal 97-105 [facility] Comment on above: Order Comment: Speci men Type: BLOOD SPECIMEN Performed By: #### 2 4321-2 ####[facility]ORATORYCLIA [id number] [address] CO2 [Moles/Vol] 21 mmol/L Low 22-30 [facility] Comment on above: Order Comment: Speci men Type: BLOOD SPECIMEN Performed By: #### 2 4321-2 ####[facility]ORATORYCLIA [id number] [address] Creatinine [Mass/Vol] 0.72 mg/dL Normal 0.58-0.96 [facility] Comment on above: Order Comment: Speci men Type: BLOOD SPECIMEN Performed By: #### 2 4321-2 ####[facility] LABORATORYCLIA [id number] [address] GFR/1.73 sq M.predicted MDRD (S/P/Bld) [Vol [...] actual GFR. Performed By: #### 2 4321-2 ####[facility] LABORATORYCLIA [id number] [address] [place] Glucose [Mass/Vol] 92 mg/dL Normal 74-99 [facility] Comment on above: Order Comment: Speci men Type: BLOOD SPECIMEN Result Comment: The [place] Diabetes Association (ADA) provides guidance for cutoff [...] Standards of Medical Care in Diabetes 2016, [place] [employer]. Diabetes Care. 2016.39(Suppl 1). Performed By: #### 2 4321-2 ####[facility] LABORATORYCLIA [id number] [address] [place] Potassium [Moles/Vol] 4.7 mmol/L Normal 3.7-5.1 [facility] Comment on above: Order Comment: Speci men Type: BLOOD SPECIMEN Performed By: #### 2 4321-2 ####[facility] LABORATORYCLIA [id number] [address] [place] Sodium [Moles/Vol] 137 mmol/L Normal 136-144 [facility] Comment on above: Order Comment: Speci men Type: BLOOD SPECIMEN Performed By: #### 2 4321-2 ####[facility] LABORATORYCLIA [id number] [place] [address] [place] Urea nitrogen [Mass/Vol] 11 mg/dL Normal 7-21 [facility] Comment on above: Order Comment: Speci men Type: BLOOD SPECIMEN Performed By: #### 2 4321-2 ####[facility] [facility] [id number] [address] [place] CBC panel Auto (Bld)on 08-25 Erythrocyte distribution width (RBC) [Ratio] 15.4 % High 11.5-15.0 [facility] Comment on above: Order Comment: Speci men Type: BLOOD SPECIMEN Performed By: #### 5 8410-2 #### [facility] CLIA [id number] [address] Hematocrit (Bld) [Volume fraction] 46.7 % High 36.0-46.0 [facility] Comment on above: Order Comment: Speci men Type: BLOOD SPECIMEN Performed By: #### 5 8410-2 #### [facility] CLIA [id number] [address] Hemoglobin (Bld) [Mass/Vol] 14.9 g/dL Normal 11.5-15.5 [facility] Comment on above: Order Comment: Speci men Type: BLOOD SPECIMEN Performed By: #### 5 8410-2 #### [facility] CLIA [id number] [address] MCH (RBC) [Entitic mass] 31.6 pg Normal 26.0-34.0 [facility] Comment on above: Order Comment: Speci men Type: BLOOD SPECIMEN Performed By: #### 5 8410-2 #### [facility] CLIA [id number] [address] MCHC (RBC) [Mass/Vol] 31.9 g/dL Normal 30.5-36.0 [facility] Comment on above: Order Comment: Speci men Type: BLOOD SPECIMEN Performed By: #### 5 8410-2 #### [facility] CLIA [id number] [address] MCV (RBC) [Entitic vol] 98.9 fL Normal 80.0-100.0 [facility] Comment on above: Order Comment: Speci men Type: BLOOD SPECIMEN Performed By: #### 5 8410-2 #### [facility] CLIA [id number] [address] Nucleated RBC (Bld) [#/Vol] 10*3/uL Normal <0.01 [facility] Comment on above: Order Comment: Speci men Type: BLOOD SPECIMEN Performed By: #### 5 8410-2 #### [facility] CLIA [id number] [address] Platelet mean volume (Bld) [Entitic vol] 10.4 fL Normal 9.0-12.7 [facility] Comment on above: Order Comment: Speci men Type: BLOOD SPECIMEN Performed By: #### 5 8410-2 #### [facility] CLIA [id number] [address] Platelets (Bld) [#/Vol] 375 10*3/uL Normal 150-400 [facility] Comment on above: Order Comment: Speci men Type: BLOOD SPECIMEN Performed By: #### 5 8410-2 #### [facility] CLIA [id number] [address] RBC (Bld) [#/Vol] 4.72 10*6/uL Normal 3.90-5.20 [facility] Comment on above: Order Comment: Speci men Type: BLOOD SPECIMEN Performed By: #### 5 8410-2 #### [facility] CLIA [id number] [address] WBC (Bld) [#/Vol] 10.76 10*3/uL Normal 3.70-11.00 [facility] Comment on above: Order Comment: Speci men Type: BLOOD SPECIMEN Performed By: #### 5 8410-2 #### [facility] CLIA [id number] [address] HISTORY PHYSICALon HISTORY PHYSICAL HNO ID: [id number] Author: Juan Ramon Pichardo MD Service: Cardiovascular [...] 08-15-2021 JEOVANNY Telephone (AGCARDPOB ) STEVEN KOENIG ([id number]) 1955 F Date Time Provider Department 08/15/21 TRACY RAMIRES During your visit today, we recorded the following information about you: Suzy Cordero RN 08/15/2021 8:11 AM Signed ----- Message from Tracy Ramires APRN.AIR POLLUTION INSPECTOR sent at 08/15/2021 7:51 AM EDT ----- [...] type [R07.9] Pre-operative cardiovascular examination [Z01.810] Order(s):CARDIAC MINE MOTOR OPERATOR ORDER [9301702] Order #: [id number]: 1 CBC [[facility]] Order #: [id number] FUTURE Prescriptions as of 08/16/2021 - oxyCODONE-acetaminophen [...] Physician Interpretation * * * * Stress Director Loan Report: [facility] Date of service: 08/14/2021 3:00:40 [...] later. See administered doses below. [facility] Date of service: 08/14/2021 3:00:40 [...] Final ---- Stress ECG Report: [facility] Date of service: 08/14/2021 3:00:40 PM Ordering physician: TRACY RAMIRES Specialist: Grace Sagastume Electrical Superintendent: Guera Fowler Stress ECG interpreting physician: Armando [...] 146/80 mmHg. The double product achieved was [address]. Indication: Shortness of breath Medical History and [...] / 80 mmHg Rate Pressure Product (RPP): 10124 St (more content not included)... [facility] 06-21-2021 JEOVANNY Telephone (AGCARDPOB ) STEVEN KOENIG ([id number]) 1955 F Date Time Provider Department 06/21/21 TRACY RAMIRES During your visit today, we recorded the following information about you: Tracy Alan LPN 06/21/2021 8:38 AM Signed ----- Message from Tracy Ramires APRN.AIR POLLUTION INSPECTOR sent at 06/21/2021 7:27 AM EDT ----- [...] Encounter Status:Closed by DIANA MAHAN on 06/21/21 [facility] No Panel InformationOrdered By: Ccf Provider on 01-27-2021 [facility] XR Chest PA and Lateralon IMPRESSION: 1. Findings compatible with underlying emphysema. 2. Mild opacity at the left lateral base, atelectasis versus focus of bronchopneumonia in the appropriate clinical setting. Follow-up to resolution is advised. Travel Registered Nurse Icu: PSCB Transcribe Date/Time: Jan 27 2021 11:43A Dictated by : ERENDIRA PAREDES MD This examination was interpreted and the report reviewed and electronically signed by: ERENDIRA PAREDES MD on Jan 27 2021 11:45AM [facility] DIVISION OF RADIOLOGY * * *Final [...] fractures again identified. DIVISION OF RADIOLOGY Provider, [facility] - 01/27/2021 * * *Final [...] clinical setting. Follow-up to resolution is advised. Travel Registered Nurse Icu: SRAVANI Transcribe Date/Time: Jan 27 2021 11:43A Dictated by : ERENDIRA PAREDES MD This examination was interpreted and the report reviewed and electronically signed by: ERENDIRA PAREDES MD on Jan 27 2021 11:45AM [facility] Radiology Study observation (narrative) [facility] XR HIP BILAT 5V PEL/AP/LAT E ACH HIPon 01-27-2021 * * *Final Report* * * DATE OF EXAM: Jan 27 2021 10:42AM WOX [id number] - XR HIP SHREIN 5V PEL+ AP/LAT EA HIP / PROCEDURE [...] Impression: 1. No acute fracture or dislocation. Travel Registered Nurse Icu: [facility] Transcribe Date/Time: Jan 27 2021 11:57A Dictated by : ANASTASIYA GIBBS MD This examination was interpreted and the report reviewed and electronically signed by: ANASTASIYA GIBBS MD on Jan 27 2021 11:58AM [facility] DIVISION OF RADIOLOGY Provider, [facility] - 01/27/2021 * * *Final [...] Impression: 1. No acute fracture or dislocation. Travel Registered Nurse Icu: [facility] Transcribe Date/Time: Jan 27 2021 11:57A Dictated by : ANASTASIYA GIBBS MD This examination was interpreted and the report reviewed and electronically signed by: ANASTASIYA GIBBS MD on Jan 27 2021 11:58AM EST [facility] Radiology Study observation (narrative) [facility] Basic Metabolic Panelon 06-2 Calcium 8.4 mg/dL Normal 8.2-10.1 [facility] Comment on above: Result Comment: Repe ated Performed By: #### H EMDF, BMP3 ####[facility] [address] [place] [address] Chloride 100 mmol/L Normal 98-109 [facility] Comment on above: Result Comment: Repe ated Performed By: #### H EMDF, BMP3 ####[facility] [address] [place] [address] Sodium 134 mmol/L Low 135-145 [facility] Comment on above: Result Comment: Repe ated Performed By: #### H EMDF, BMP3 ####[facility] [address] [place] [address] Anion gap 7 Normal [facility] Comment on above: Performed By: #### H EMDF, BMP3 ####[facility] [address] [place] [address] CO2 27 mmol/L Normal 21-32 [facility] Comment on above: Performed By: #### H EMDF, BMP3 ####[facility] [address] [place] [address] Creatinine 0.79 mg/dL Normal 0.55-1.40 [facility] Comment on above: Performed By: #### H EMDF, BMP3 ####[facility] [address] [place] [address] eGFR (black) mL/min/{1.73_m2} Normal >60 [facility] Comment on above: Performed By: #### H EMDF, BMP3 ####[facility] [address] [place] [address] eGFR (non-black) mL/min/{1.73_m2} Normal >60 [facility] Comment on above: Result Comment: Sour ce- MDRD equation with creatinine calibration to IDMS(NKDEP) eGFR not recommended for drug dose adjustment Performed By: #### H EMDF, BMP3 ####[facility] [address] [place] [address] Glucose mass conc 98 mg/dL Normal 70-100 [facility] Comment on above: Performed By: #### H AURELIOF BMP3 ####[address] [address] Potassium molar conc 4.6 mmol/L Normal 3.5-5.1 [facility] [employer] Comment on above: Performed By: #### H EMDF, BMP3 ####[address] [address] Urea nitrogen 20 mg/dL Normal 7-25 [facility] Comment on above: Performed By: #### H GREY BMP3 ####[facility] [address] [address] Glucose,Bedsideon 05-04-2018 Glucose mass conc 99 mg/dL Normal 70-100 [facility] Comment on above: Result Comment: Test performed by glucose meter. Results may be 10%-15% lowerthan serum/plasma values. (CLIA ID [id number]) Performed By: #### B GLU ####[facility] [address] [address] Hemogram w/ Autodiffon 05-04 Abs Baso Cnt 0.1 10*3/uL Normal 0.0-0.2 [facility] Comment on above: Performed By: #### H EMDF, BMP3 ####[facility] [address] [address] Basophils/100 WBC Auto (Bld) 1.0 % Normal 0.0-2.0 [facility] Comment on above: Performed By: #### H EMDF, BMP3 ####[facility] [address] [address] Eosinophils 0.4 10*3/uL Normal 0.0-0.5 [facility] Comment on above: Performed By: #### H EMDF, BMP3 ####[facility] [address] [address] Eosinophils/100 leukocytes 4.3 % Normal 1.0-6.0 [facility] Comment on above: Performed By: #### H EMDF, BMP3 ####[address] [place] [address] Erythrocyte distribution width Auto Ratio (RBC) 14.7 % High 11.5-14.5 [facility] Comment on above: Performed By: #### H EMDF, BMP3 ####[address] [address] Erythrocytes (RBC) 4.10 10*6/uL Normal 3.80-5.20 [facility] Comment on above: Performed By: #### H EMDF, BMP3 ####[address] [address] Granulocytes/100 WBC (Bld) 57.2 % Normal 40.0-80.0 [facility] Comment on above: Performed By: #### H EMDF, BMP3 ####[address] [address] Hematocrit (HCT) 40.2 % Normal 35.0-47.0 [facility] Comment on above: Performed By: #### H EMDF, BMP3 ####[address] [address] Hemoglobin mass conc (Bld) 13.3 g/dL Normal 11.7-16.0 [facility] Comment on above: Performed By: #### H EMDF, BMP3 ####[address] [address] Lymphocytes 2.5 10*3/uL Normal 1.0-4.3 [facility] Comment on above: Performed By: #### H EMDF, BMP3 ####[address] [address] Lymphocytes/100 leukocytes 27.6 % Normal 20.0-40.0 [facility] Comment on above: Performed By: #### H EMDF, BMP3 ####[address] [address] MCH 32.5 pg Normal 26.0-34.0 [facility] Comment on above: Performed By: #### H EMDF, BMP3 ####[facility] [address] [place] [address] MCHC mass conc (RBC) 33.0 % Normal 32.0-36.0 [facility] Comment on above: Performed By: #### H EMDF BMP3 ####[address] [address] MCV 98.2 fL High 79.0-98.0 [facility] Comment on above: Performed By: #### H EMDRamírez BMP3 ####[address] [address] Monocytes 0.9 10*3/uL High 0.0-0.8 [facility] Comment on above: Performed By: #### H GREY BMP3 ####[address] [address] Monocytes/100 leukocytes 9.9 % Normal 2.0-10.0 [facility] Comment on above: Performed By: #### H GREY BMP3 ####[address] [address] Neutrophils 5.2 10*3/uL Normal 1.8-7.0 [facility] Comment on above: Performed By: #### H GREY BMP3 ####[address] [address] Platelet mean volume (PMV) 8.8 fL Normal 7.4-10.4 [facility] Comment on above: Performed By: #### H EMDF BMP3 ####[address] [address] Platelets 362 10*3/uL Normal 140-440 [facility] Comment on above: Performed By: #### H EMDF BMP3 ####[address] [address] WBC (Leukocytes) 9.1 10*3/uL Normal 3.6-10.7 [facility] Comment on above: Performed By: #### H EMDF BMP3 ####[address] [address] Ethanol Serum/Plasmaon 04-30 Ethanol-Serum/Plasma < 0.010 Normal 0.000-0.010 [facility] Comment on above: Result Comment: NOTE : This result is for medical treatment only. Analysis performed using non-forensic procedures. Performed By: #### H EMDF, CMP3, QWAL, ETOH4 ####[facility] [address] [place], [place] HCG,Urine Qualon 04-30-2018 HCG.beta subunit ( test) Ql (U) Negative Normal Negative [facility] Comment on above: Result Comment: Preg ismael is the most common reason for HCG in urine, althoughchoriocarcinoma, hydatidiform mole, and certain nontropho-blastic malignancies also result in detectable urinary HCGlevels. Sensitivity = 20mIU/mL. Performed By: #### U AMAC, DRGA4, HCGUR ####[address] [place], [place] Comp Metabolic Panelon 04-29 Alanine aminotransferase (ALT) 26 U/L Normal 13-69 [facility] Comment on above: Performed By: #### H EMDF, CMP3, QWAL, ETOH4 ####[facility] [address] [employer] [place] Alkaline phosphatase (ALP) 65 U/L Normal 38-126 [facility] Comment on above: Performed By: #### H EMDF, CMP3, QWAL, ETOH4 ####[facility] [address] [employer] [place] [place] Anion gap 10 Normal [facility] Comment on above: Performed By: #### H EMDF, CMP3, QWAL, ETOH4 ####[facility] [address] [place], [place] Aspartate aminotransferase (AST) 23 U/L Normal 15-46 [facility] Comment on above: Performed By: #### H EMDF, CMP3, QWAL, ETOH4 ####[facility] [address] [place], [place] Calcium 9.1 mg/dL Normal 8.4-10.2 [facility] Comment on above: Performed By: #### H EMDF, CMP3, QWAL, ETOH4 ####[address] [place], [place] CO2 24 mmol/L Normal 22-30 [facility] Comment on above: Performed By: #### H EMDF, CMP3, QWAL, ETOH4 ####[address] [place], [place] Glucose mass conc 144 mg/dL High 70-100 [facility] Comment on above: Performed By: #### H EMDF, CMP3, QWAL, ETOH4 ####[address] Protein 7.2 g/dL Normal 6.3-8.2 [facility] Comment on above: Performed By: #### H EMDF, CMP3, QWAL, ETOH4 ####[address] Urea nitrogen 14 mg/dL Normal 7-20 [facility] Comment on above: Performed By: #### H EMDF, CMP3, QWAL, ETOH4 ####[address] Bilirubin (total) 0.3 mg/dL Normal 0.2-1.3 [facility] Comment on above: Performed By: #### H EMDF, CMP3, QWAL, ETOH4 ####[address] Creatinine 0.74 mg/dL Normal 0.52-1.25 [facility] Comment on above: Performed By: #### H EMDF, CMP3, QWAL, ETOH4 ####[address] [place], [place] eGFR (black) mL/min/{1.73_m2} Normal >60 [facility] Comment on above: Performed By: #### H EMDF, CMP3, QWAL, ETOH4 ####[address] [place], [place] eGFR (non-black) mL/min/{1.73_m2} Normal >60 [facility] Comment on above: Result Comment: Sour ce- MDRD equation with creatinine calibration to IDMS(NKDEP) eGFR not recommended for drug dose adjustment Performed By: #### H EMDF, CMP3, QWAL, ETOH4 ####[facility] [place], [place] Albumin 4.4 g/dL Normal 3.5-5.0 [facility] Comment on above: Performed By: #### H EMDF, CMP3, QWAL, ETOH4 ####[address] [place], [place] Chloride 106 mmol/L Normal 98-107 [facility] Comment on above: Performed By: #### H EMDF, CMP3, QWAL, ETOH4 ####[address] [place], [place] Potassium molar conc 4.4 mmol/L Normal 3.5-5.1 [facility] Comment on above: Performed By: #### H EMDF, CMP3, QWAL, ETOH4 ####[address] [place], [place] Sodium 141 mmol/L Normal 137-145 [facility] Comment on above: Performed By: #### H EMDF, CMP3, QWAL, ETOH4 ####[facility] [place], [place] Drugs of Abuseon 04-29-2018 Cocaine, Ur Negative Normal [facility] Comment on above: Performed By: #### U AMAC, DRGA4, HCGUR ####[address] [place], [place] Phencyclidine (PCP), Ur Negative Normal [facility] Comment on above: Result Comment: The [...] Performed By: #### U AMAC, DRGA4, HCGUR ####[address] [place], [place] Methadone, Ur Negative Normal [facility] Comment on above: Performed By: #### U AMAC, DRGA4, HCGUR ####[address] Opiates, Ur Negative Normal [facility] Comment on above: Performed By: #### U AMAC, DRGA4, HCGUR ####[address] Benzodiazepines, Ur Negative Normal [facility] Comment on above: Performed By: #### U AMAC, DRGA4, HCGUR ####[address] Amphetamines, Ur Negative Normal [facility] Comment on above: Performed By: #### U AMAC, DRGA4, HCGUR ####[address] Barbiturates, Ur Negative Normal [facility] Comment on above: Performed By: #### U AMAC, DRGA4, HCGUR ####[address] Oxycodone/Oxymorphine,U r Negative Normal [facility] Comment on above: Performed By: #### U AMAC, DRGA4, HCGUR ####[address] Hemogram w/ Autodiffon 04-29 Abs Baso Cnt 0.1 10*3/uL Normal 0.0-0.2 [facility] Comment on above: Performed By: #### H EMDF, CMP3, QWAL, ETOH4 ####[address] Basophils/100 WBC Auto (Bld) 1.1 % Normal 0.0-2.0 [facility] Comment on above: Performed By: #### H EMDF, CMP3, QWAL, ETOH4 ####[address] [place], [place] Eosinophils 0.3 10*3/uL Normal 0.0-0.5 [facility] Comment on above: Performed By: #### H EMDF, CMP3, QWAL, ETOH4 ####[address] Eosinophils/100 leukocytes 3.3 % Normal 1.0-6.0 [facility] Comment on above: Performed By: #### H EMDF, CMP3, QWAL, ETOH4 ####[address] Erythrocyte distribution width Auto Ratio (RBC) 14.8 % High 11.5-14.5 [facility] Comment on above: Performed By: #### H EMDF, CMP3, QWAL, ETOH4 ####[address] Erythrocytes (RBC) 4.26 10*6/uL Normal 3.80-5.20 [facility] Comment on above: Performed By: #### H EMDF, CMP3, QWAL, ETOH4 ####[address] Granulocytes/100 WBC (Bld) 54.6 % Normal 40.0-80.0 [facility] Comment on above: Performed By: #### H EMDF, CMP3, QWAL, ETOH4 ####[address] Hematocrit (HCT) 42.5 % Normal 35.0-47.0 [facility] Comment on above: Performed By: #### H EMDF, CMP3, QWAL, ETOH4 ####[address] Hemoglobin mass conc (Bld) 14.1 g/dL Normal 11.7-16.0 [facility] Comment on above: Performed By: #### H EMDF, CMP3, QWAL, ETOH4 ####[address] Lymphocytes 3.1 10*3/uL Normal 1.0-4.3 [facility] Comment on above: Performed By: #### H EMDF, CMP3, QWAL, ETOH4 ####[address] Lymphocytes/100 leukocytes 32.8 % Normal 20.0-40.0 [facility] Comment on above: Performed By: #### H EMDF, CMP3, QWAL, ETOH4 ####[address] MCH 33.1 pg Normal 26.0-34.0 [facility] Comment on above: Performed By: #### H EMDF, CMP3, QWAL, ETOH4 ####[address] MCHC mass conc (RBC) 33.2 % Normal 32.0-36.0 [facility] Comment on above: Performed By: #### H EMDF, CMP3, QWAL, ETOH4 ####[address] MCV 99.8 fL High 79.0-98.0 [facility] Comment on above: Performed By: #### H EMDF, CMP3, QWAL, ETOH4 ####[address] Monocytes 0.8 10*3/uL Normal 0.0-0.8 [facility] Comment on above: Performed By: #### H EMDF, CMP3, QWAL, ETOH4 ####[address] Monocytes/100 leukocytes 8.2 % Normal 2.0-10.0 [facility] Comment on above: Performed By: #### H EMDF, CMP3, QWAL, ETOH4 ####[address] [place], [place] Neutrophils 5.2 10*3/uL Normal 1.8-7.0 [facility] Comment on above: Performed By: #### H EMDF, CMP3, QWAL, ETOH4 ####[address] [place], [place] Platelet mean volume (PMV) 8.5 fL Normal 7.4-10.4 [facility] Comment on above: Performed By: #### H EMDF, CMP3, QWAL, ETOH4 ####[address] [place], [place] Platelets 380 10*3/uL Normal 140-440 [facility] Comment on above: Performed By: #### H EMDF, CMP3, QWAL, ETOH4 ####[address] WBC (Leukocytes) 9.6 10*3/uL Normal 3.6-10.7 [facility] Comment on above: Performed By: #### H EMDF, CMP3, QWAL, ETOH4 ####[address] [place], [place] Urinalysis,Macroon 8 Bilirubin (direct) Negative Normal Negative [facility] Comment on above: Performed By: #### U AMAC, DRGA4, HCGUR ####[address] [place], [place] Ketone,Urine Negative Normal Negative [facility] Comment on above: Performed By: #### U AMAC, DRGA4, HCGUR ####[address] [place], [place] Occult Blood,Ur Negative Normal Negative [facility] Comment on above: Performed By: #### U AMAC, DRGA4, HCGUR ####[address] [place], [place] Specific [place],Urine 1.015 Normal 1.005-1.030 [facility] Comment on above: Performed By: #### U AMAC, DRGA4, HCGUR ####[address] [place], [place] Total Protein,Urine Negative Normal Negative [facility] Comment on above: Performed By: #### U AMAC, DRGA4, HCGUR ####[address] [place], [place] Urine, appearance clear Normal Clear [facility] Comment on above: Performed By: #### U AMAC, DRGA4, HCGUR ####[address] [place], [place] Urine, color yellow Normal Lt. Yellow [facility] Comment on above: Performed By: #### U AMAC, DRGA4, HCGUR ####[address] [place], [place] Urine, glucose presence NORM Normal Negative [facility] Comment on above: Performed By: #### U AMAC, DRGA4, HCGUR ####[address] [place], [place] Urine, nitrite presence Negative Normal Negative [facility] Comment on above: Performed By: #### U AMAC, DRGA4, HCGUR ####[address] [place], [place] Urine, pH 5.0 Normal 5.0-8.0 [facility] Comment on above: Performed By: #### U AMAC, DRGA4, HCGUR ####[address] [place], [place] Urine, urobilinogen NORM Normal 0-1 [facility] Comment on above: Performed By: #### U AMAC, DRGA4, HCGUR ####[address] [place], [place] WBC (Leukocytes) Negative Normal Negative [facility] Comment on above: Performed By: #### U AMAC, DRGA4, HCGUR ####[address] [place], [place] hCG Qual Pregon 04-29-2018 hCG Qual Preg QUESTIONABLE Abnormal [facility] Comment on above: Result Comment: REF RANGE:Negative .... < 3Questionable Rpt 48-72 HrPositive ..... > 10 Performed By: #### H EMDF, CMP3, QWAL, ETOH4 ####[facility] [address] [place] [address] Vital Signs Date Time Vital Sign Value Performing Clinician Facility 03-06-2025 11:36-0400 Heart rate 79 /min TIFFANY HANSEN DO [address] [place] [address] 03-06-2025 11:36-0400 Respiratory rate 20 /min TIFFANY JADE DO [facility] 03-06-2025 11:35-0400 Body temperature 98.6 [degF] TIFFANY JADE DO [address] [place] [address] 03-06-2025 11:35-0400 Diastolic Blood Pressure Non-Invasive 63 mm[Hg] TIFFANY HANSEN DO [facility] 03-06-2025 11:35-0400 Heart rate 82 /min TIFFANY JADE DO [facility] 03-06-2025 11:35-0400 Reason For Taking VItal Signs TIFFANY JADE DO [facility] 03-06-2025 11:35-0400 Respiratory rate 20 /min TIFFANY JADE DO [facility] 03-06-2025 11:35-0400 Systolic Blood Pressure Non-Invasive 90 mm[Hg] TIFFANY HANSEN DO [facility] 03-06-2025 08:04-0400 Heart rate 74 /min TIFFANY PABONERLY DO [facility] 03-06-2025 06:48-0400 Body temperature 98.06 [degF] TIFFANY JADE DO [facility] 03-06-2025 06:48-0400 Diastolic Blood Pressure Non-Invasive 75 mm[Hg] TIFFANY HANSEN DO [facility] 03-06-2025 06:48-0400 Heart rate 50 /min TIFFANY HANSEN DO [facility] 03-06-2025 06:48-0400 Reason For Taking VItal Signs TIFFANY HANSEN DO [facility] 03-06-2025 06:48-0400 Respiratory rate 20 /min TIFFANY HANSEN DO [facility] 03-06-2025 06:48-0400 Systolic Blood Pressure Non-Invasive 94 mm[Hg] TIFFANY HANSEN DO [facility] 03-06-2025 03:17-0400 Body temperature 97.88 [degF] TIFFANY HANSEN DO [facility] 03-06-2025 03:17-0400 Diastolic Blood Pressure Non-Invasive 61 mm[Hg] TIFFANY HANSEN DO [facility] 03-06-2025 03:17-0400 Reason For Taking VItal Signs TIFFANY HANSEN DO [facility] 03-06-2025 03:17-0400 Systolic Blood Pressure Non-Invasive 99 mm[Hg] TIFFANY HANSEN DO [facility] 03-05-2025 16:10-0400 Heart rate 79 /min TIFFANY HANSEN DO [facility] 03-05-2025 11:26-0400 Heart rate 68 /min TIFFANY HANSEN DO [facility] 03-05-2025 08:39-0400 Heart rate 75 /min TIFFANY JADE DO [facility] 03-05-2025 06:20-0400 Heart rate 81 /min TIFFANY JADE DO [facility] 03-04-2025 16:31-0400 Heart rate 90 /min TIFFANY JADE DO [facility] 03-04-2025 07:59-0400 Body height 165.1 cm TIFFANY JADE DO [facility] 03-04-2025 07:59-0400 Body temperature 98.06 [degF] TIFFANY JADE DO [address] [place] [address] 03-04-2025 07:59-0400 Body weight 58.3 kg TIFFANY JADE DO [facility] 03-04-2025 07:59-0400 Body weight 21.39 kg/m2 TIFFANY JADE DO [facility] 03-04-2025 05:51-0400 Body weight 58.3 kg TIFFANY JADE DO [facility] 12-14-2024 06:46-0500 Body height 162.6 cm [...] 160 cm Mely Kendrick PA-C Work Phone: [facility] 05-09-2023 13:16-0400 Body weight 57.15 kg Mely Kendrick PA-C Work Phone: [facility] 05-09-2023 13:16-0400 Diastolic blood pressure 90 mm[Hg] Mely Kendrick PA-C Work Phone: [facility] 05-09-2023 13:16-0400 Heart rate 83 /min Mely Kendrick PA-C Work Phone: [facility] 05-09-2023 13:16-0400 Respiratory rate 18 /min Mely Kendrick PA-C Work Phone: [facility] 05-09-2023 13:16-0400 SaO2% (BldA) [Mass fraction] 94 % Mely Kendrick PA-C Work Phone: [facility] 05-09-2023 13:16-0400 Systolic blood pressure 140 mm[Hg] Mely Kendrick PA-C Work Phone: [facility] 05-08-2023 12:01-0400 Body weight 56.25 kg Oly Older SENIOR WINDOWS SYSTEMS ENGINEER.AIR POLLUTION INSPECTOR Work Phone: [facility] 05-08-2023 12:01-0400 Diastolic blood pressure 88 mm[Hg] Oly Older SENIOR WINDOWS SYSTEMS ENGINEER.AIR POLLUTION INSPECTOR Work Phone: [facility] 05-08-2023 12:01-0400 Heart rate 90 /min Oly Older SENIOR WINDOWS SYSTEMS ENGINEER.AIR POLLUTION INSPECTOR Work Phone: [facility] 05-08-2023 12:01-0400 Respiratory rate 20 /min Oly Older SENIOR WINDOWS SYSTEMS ENGINEER.AIR POLLUTION INSPECTOR Work Phone: [facility] 05-08-2023 12:01-0400 Systolic blood pressure 134 mm[Hg] Oly Older SENIOR WINDOWS SYSTEMS ENGINEER.AIR POLLUTION INSPECTOR Work Phone: [facility] 01-07-2023 21:11-0500 Body temperature 98.6 [degF] Armando Wynngabriel Work Phone: [facility] 01-07-2023 21:11-0500 Heart rate 76 /min Armando Benavides DO Work Phone: [facility] 01-07-2023 21:11-0500 Respiratory rate 18 /min Armando Benavides DO Work Phone: [facility] 01-07-2023 21:11-0500 SaO2% (BldA) [Mass fraction] 94 % Armando Wynngabriel POOLE Work Phone: [facility] 01-07-2023 20:00-0500 Diastolic blood pressure 84 mm[Hg] Armando Benavides DO Work Phone: [facility] 01-07-2023 20:00-0500 Systolic blood pressure 161 mm[Hg] Armando Benavides DO Work Phone: [facility] 01-07-2023 17:39-0500 Body height 165.1 cm Armando Benavides DO Work Phone: [facility] 01-07-2023 17:39-0500 Body mass index (BMI) [Ratio] 21.63 kg/m2 Armando Benavides DO Work Phone: [facility] 01-07-2023 17:39-0500 Body weight 58.97 kg Armando Benavides DO Work Phone: [facility] 01-07-2023 12:34-0500 Body temperature 98.2 [degF] Dr. Ulises Hermosillo Work Phone: 5(306)390-741846 [place] [address] 01-07-2023 12:34-0500 Diastolic blood pressure 55 mm[Hg] Dr. Ulises Hermosillo Work Phone: 6(365)666-831146 [place] [address] 01-07-2023 12:34-0500 Heart rate 79 /min Dr. Ulises Hermosillo Work Phone: 8(355)775-357246 [place] [address] 01-07-2023 12:34-0500 Respiratory rate 18 /min Dr. Ulises Hermosillo Work Phone: 0(931)369-739546 [place] [address] 01-07-2023 12:34-0500 SaO2% (BldA) [Mass fraction] 90 % Dr. Ulises Hermosillo Work Phone: 6(994)639-374946 [place] [address] 01-07-2023 12:34-0500 Systolic blood pressure 121 mm[Hg] Dr. Ulises Hermosillo Work Phone: 8(867)953-996446 [place] [address] 01-07-2023 09:58-0500 Inhaled oxygen flow rate 2 L/min Dr. Ulises Hermosillo Work Phone: 5(258)241-826546 [place] [address] 01-07-2023 06:00-0500 Body mass index (BMI) [Ratio] 21.9 kg/m2 Dr. Ulises Hermosillo Work Phone: 1(419)209-040546 [place] [address] 01-07-2023 06:00-0500 Body weight 59.[address] Ulises Hermosillo Work Phone: 8(529)297-570046 [place] [address] 01-03-2023 10:39-0500 Body height 165.[address] Ulises Hermosillo Work Phone: 3(429)864-627946 [place] [address] 01-02-2023 21:43-0500 Body temperature 98.4 [degF] Dr. Ulises Hermosillo Work Phone: 2(380)991-401446 [place] [address] 01-02-2023 21:43-0500 Diastolic blood pressure 87 mm[Hg] Dr. Ulises Hermosillo Work Phone: [facility] 01-02-2023 21:43-0500 Heart rate 96 /min Dr. Ulises Hermosillo Work Phone: [facility] 01-02-2023 21:43-0500 Inhaled oxygen flow rate 2 L/min Dr. Ulises Hermosillo Work Phone: [facility] 01-02-2023 21:43-0500 Respiratory rate 24 /min Dr. Ulises Hermosillo Work Phone: [facility] 01-02-2023 21:43-0500 SaO2% (BldA) [Mass fraction] 96 % Dr. Ulises Hermosillo Work Phone: [facility] 01-02-2023 21:43-0500 Systolic blood pressure 118 mm[Hg] Dr. Ulises Hermosillo Work Phone: [facility] 01-02-2023 17:54-0500 Body height 165.[address] Ulises Hermosillo Work Phone: [facility] 01-02-2023 17:54-0500 Body mass index (BMI) [Ratio] 21.8 kg/m2 Dr. Ulises Hermosillo Work Phone: [facility] 01-02-2023 17:54-0500 Body weight 59.[address] Ulises Hermosillo Work Phone: [facility] 01-01-2023 14:08-0500 Diastolic blood pressure 83 mm[Hg] Oly Older SENIOR WINDOWS SYSTEMS ENGINEER.AIR POLLUTION INSPECTOR Work Phone: [facility] 01-01-2023 14:08-0500 Heart rate 85 /min Oly Older SENIOR WINDOWS SYSTEMS ENGINEER.AIR POLLUTION INSPECTOR Work Phone: [facility] 01-01-2023 14:08-0500 Systolic blood pressure 170 mm[Hg] Oly Older SENIOR WINDOWS SYSTEMS ENGINEER.AIR POLLUTION INSPECTOR Work Phone: [facility] 01-01-2023 13:09-0500 Body weight 58.06 kg Oly Older SENIOR WINDOWS SYSTEMS ENGINEER.AIR POLLUTION INSPECTOR Work Phone: [facility] 01-01-2023 13:09-0500 Respiratory rate 22 /min Oly Older SENIOR WINDOWS SYSTEMS ENGINEER.AIR POLLUTION INSPECTOR Work Phone: [facility] 01-01-2023 13:09-0500 SaO2% (BldA) [Mass fraction] 97 % Oly Older SENIOR WINDOWS SYSTEMS ENGINEER.AIR POLLUTION INSPECTOR Work Phone: [facility] 12-23-2022 16:29-0500 Diastolic Blood Pressure Non-Invasive [address] JOSE ROBERTO COMBS MD [facility] 12-23-2022 16:29-0500 Heart rate 84 /min DR JOSE ROBERTO COMBS MD [facility] 12-23-2022 16:29-0500 Respiratory rate 16 /min DR JOSE ROBERTO COMBS MD [facility] 12-23-2022 16:29-0500 Systolic Blood Pressure Non-Invasive [address] JOSE ROBERTO COMBS MD [facility] 12-23-2022 14:43-0500 Diastolic Blood Pressure Non-Invasive [address] JOSE ROBERTO COMBS MD [facility] 12-23-2022 14:43-0500 Heart rate 82 /min DR JOSE ROBERTO COMBS MD [facility] 12-23-2022 14:43-0500 Respiratory rate 18 /min DR JOSE ROBERTO COMBS MD [facility] 12-23-2022 14:43-0500 Systolic Blood Pressure Non-Invasive [address] JOSE ROBERTO COMBS MD [facility] 12-23-2022 13:50-0500 Body temperature 96.98 [degF] DR JOSE ROBERTO COMBS MD [facility] 12-23-2022 13:50-0500 Diastolic Blood Pressure Non-Invasive [address] JOSE ROBERTO COMBS MD [facility] 12-23-2022 13:50-0500 Heart rate 89 /min DR JOSE ROBERTO COMBS MD [facility] 12-23-2022 13:50-0500 Respiratory rate 18 /min DR JOSE ROBERTO COMBS MD [facility] 12-23-2022 13:50-0500 Systolic Blood Pressure Non-Invasive [address] JOSE ROBERTO COMBS MD [facility] 11-26-2022 12:48-0500 Body weight 57.61 kg Isauro Asher MD Work Phone: [facility] 11-26-2022 12:48-0500 Diastolic blood pressure 84 mm[Hg] Isauro Asher MD Work Phone: [facility] 11-26-2022 12:48-0500 Heart rate 98 /min Isauro Asher MD Work Phone: [facility] 11-26-2022 12:48-0500 Respiratory rate 20 /min Isauro Asher MD Work Phone: [facility] 11-26-2022 12:48-0500 SaO2% (BldA) [Mass fraction] 99 % Isauro Asher MD Work Phone: [facility] 11-26-2022 12:48-0500 Systolic blood pressure 120 mm[Hg] Isauro Asher MD Work Phone: [facility] 10-26-2022 19:30-0500 Diastolic Blood Pressure Non-Invasive 93 1 JEOVANY TAYLOR MD [facility] 10-26-2022 19:30-0500 Heart rate 97 /min JEOVANY TAYLOR MD [facility] 10-26-2022 19:30-0500 Respiratory rate 20 /min JEOVANY TAYLOR MD [facility] 10-26-2022 19:30-0500 Systolic Blood Pressure Non-Invasive 167 1 JEOVANY TAYLOR MD [facility] 10-26-2022 19:00-0500 Diastolic Blood Pressure Non-Invasive 92 1 JEOVANY TAYLOR MD [facility] 10-26-2022 19:00-0500 Heart rate 93 /min JEOVANY TAYLOR MD [facility] 10-26-2022 19:00-0500 Respiratory rate 18 /min JEOVANY TAYLOR MD [facility] 10-26-2022 18:37-0500 Heart rate 94 /min JEOVANY TAYLOR MD [facility] 10-26-2022 18:37-0500 Respiratory rate 22 /min JEOVANY TAYLOR MD [facility] 10-26-2022 18:31-0500 Diastolic Blood Pressure Non-Invasive 82 1 JEOVANY TAYLOR MD [facility] 10-26-2022 18:31-0500 Systolic Blood Pressure Non-Invasive 153 1 JEOVANY TAYLOR MD [facility] 10-26-2022 16:25-0500 Body temperature 96.8 [degF] JEOVANY TAYLOR MD [facility] 10-02-2022 10:02-0500 Body height 162.1 cm Doron Self DO Work Phone: [facility] 10-02-2022 10:02-0500 Body weight 58.97 kg Doron Self DO Work Phone: [facility] 10-02-2022 10:02-0500 Diastolic blood pressure 87 mm[Hg] Doron Self DO Work Phone: [facility] 10-02-2022 10:02-0500 Heart rate 86 /min Doron Self DO Work Phone: [facility] 10-02-2022 10:02-0500 SaO2% (BldA) [Mass fraction] 96 % Doron Self DO Work Phone: [facility] 10-02-2022 10:02-0500 Systolic blood pressure 155 mm[Hg] Doron Self DO Work Phone: [facility] 09-05-2022 16:28-0400 Body weight 59.88 kg Ulises Hermosillo MD Work Phone: [facility] 09-05-2022 16:28-0400 Diastolic blood pressure 82 mm[Hg] Ulises Hermosillo MD Work Phone: [facility] 09-05-2022 16:28-0400 Heart rate 95 /min Ulises Hermosillo MD Work Phone: [facility] 09-05-2022 16:28-0400 SaO2% (BldA) [Mass fraction] 98 % Ulises Hermosillo MD Work Phone: [facility] 09-05-2022 16:28-0400 Systolic blood pressure 132 mm[Hg] Ulises Hermosillo MD Work Phone: [facility] 08-31-2022 13:22-0400 Body weight 58.51 kg Oly Older SENIOR WINDOWS SYSTEMS ENGINEER.AIR POLLUTION INSPECTOR Work Phone: [facility] 08-31-2022 13:22-0400 Diastolic blood pressure 82 mm[Hg] Oly Older SENIOR WINDOWS SYSTEMS ENGINEER.AIR POLLUTION INSPECTOR Work Phone: [facility] 08-31-2022 13:22-0400 Heart rate 86 /min Oly Older SENIOR WINDOWS SYSTEMS ENGINEER.AIR POLLUTION INSPECTOR Work Phone: [facility] 08-31-2022 13:22-0400 Respiratory rate 18 /min Oly Older SENIOR WINDOWS SYSTEMS ENGINEER.AIR POLLUTION INSPECTOR Work Phone: [facility] 08-31-2022 13:22-0400 Systolic blood pressure 125 mm[Hg] Oly Older SENIOR WINDOWS SYSTEMS ENGINEER.AIR POLLUTION INSPECTOR Work Phone: [facility] 07-31-2022 14:17-0400 Body weight 60.33 kg Nicole Kenny APRN.AIR POLLUTION INSPECTOR Work Phone: [facility] 07-31-2022 14:17-0400 Diastolic blood pressure 82 mm[Hg] Nicole Kenny APRN.AIR POLLUTION INSPECTOR Work Phone: [facility] 07-31-2022 14:17-0400 Heart rate 89 /min Nicole Kenny APRN.AIR POLLUTION INSPECTOR Work Phone: [facility] 07-31-2022 14:17-0400 SaO2% (BldA) [Mass fraction] 98 % Nicole Kenny APRN.AIR POLLUTION INSPECTOR Work Phone: [facility] 07-31-2022 14:17-0400 Systolic blood pressure 148 mm[Hg] Nicole Kenny APRN.AIR POLLUTION INSPECTOR Work Phone: [facility] 06-06-2022 10:11-0400 Body height 162.1 cm Margaret Kasper MD Work Phone: [facility] 06-06-2022 10:11-0400 Body weight 58 kg Margaret Kasper MD Work Phone: [facility] 06-06-2022 10:11-0400 Diastolic blood pressure 84 mm[Hg] Margaret Kasper MD Work Phone: [facility] 06-06-2022 10:11-0400 Heart rate 77 /min Margaret Kasper MD Work Phone: [facility] 06-06-2022 10:11-0400 SaO2% (BldA) [Mass fraction] 96 % Margaret Kasper MD Work Phone: [facility] 06-06-2022 10:11-0400 Systolic blood pressure 173 mm[Hg] Margaret Kasper MD Work Phone: [facility] 05-11-2022 13:40-0400 Body weight 58.06 kg Ulises Hermosillo MD Work Phone: [facility] 05-11-2022 13:40-0400 Diastolic blood pressure 78 mm[Hg] Ulises Hermosillo MD Work Phone: [facility] 05-11-2022 13:40-0400 Heart rate 99 /min Ulises Hermosillo MD Work Phone: [facility] 05-11-2022 13:40-0400 Respiratory rate 24 /min Ulises Hermosillo MD Work Phone: [facility] 05-11-2022 13:40-0400 SaO2% (BldA) [Mass fraction] 95 % Ulises Hermosillo MD Work Phone: [facility] 05-11-2022 13:40-0400 Systolic blood pressure 118 mm[Hg] Ulises Hermosillo MD Work Phone: [facility] 05-05-2022 10:56-0400 Respiratory rate 16 /min DR BETINA GODDADR MD [facility] 05-05-2022 10:48-0400 [...] temperature 97.88 [degF] DR BETINA GODDARD MD [address] [place] [address] 05-05-2022 07:33-0400 Diastolic blood pressure 71 mm[Hg] DR BETINA GODDARD MD [address] [place] [address] 05-05-2022 07:33-0400 Heart rate 71 /min DR BETINA GODDARD MD [address] [place] [address] 05-05-2022 07:33-0400 Mean blood pressure 88 mm[Hg] DR BETINA GODDARD MD [facility] 05-05-2022 07:33-0400 Reason For Taking VItal Signs DR BETINA GODDARD MD [address] [place] [address] 05-05-2022 07:33-0400 Respiratory rate 16 /min DR BETINA GODDARD MD [address] [place] [address] 05-05-2022 07:33-0400 Systolic blood pressure 122 mm[Hg] DR BETINA GODDARD MD [address] [place] [address] 05-05-2022 06:43-0400 Heart rate 77 /min DR BETINA GODDARD MD [address] [place] [address] 05-04-2022 23:22-0400 Diastolic blood pressure 64 mm[Hg] DR BETINA GODDARD MD [facility] 05-04-2022 23:22-0400 Systolic blood pressure 124 mm[Hg] DR BETINA GDODARD MD [facility] 05-04-2022 20:59-0400 Body temperature 98.42 [degF] DR BETINA GODDARD MD [facility] 05-04-2022 20:59-0400 Heart rate 73 /min DR BETINA GODDARD MD [facility] 05-04-2022 14:47-0400 Mean blood pressure 92 [...] blood pressure 86 mm[Hg] EMMANUEL FROMMELT DO [facility] 05-02-2022 06:28-0400 Heart rate 92 /min EMMANUEL FROMMELT DO [facility] 05-02-2022 06:28-0400 Respiratory rate 20 /min EMMANUEL FROMMELT DO [facility] 05-02-2022 06:28-0400 Systolic blood pressure 131 mm[Hg] EMMANUEL FROMMELT DO [facility] 05-02-2022 04:25-0400 Diastolic blood pressure 82 mm[Hg] EMMANUEL FROMMELT DO [facility] 05-02-2022 04:25-0400 Heart rate 95 /min EMMANUEL FROMMELT DO [facility] 05-02-2022 04:25-0400 Mean blood pressure 98 mm[Hg] EMMANUEL FROMMELT DO [facility] 05-02-2022 04:25-0400 Respiratory rate 22 /min EMMANUEL FROMMELT DO [facility] 05-02-2022 04:25-0400 Systolic blood pressure 129 mm[Hg] EMMANUEL FROMMELT DO [facility] 05-02-2022 03:42-0400 Diastolic blood pressure 84 mm[Hg] EMMANUEL FROMMELT DO [facility] 05-02-2022 03:42-0400 Heart rate 98 /min EMMANUEL THOMPSONT DO [facility] 05-02-2022 03:42-0400 Mean blood pressure 99 mm[Hg] EMMANUEL THOMPSONT DO [facility] 05-02-2022 03:42-0400 Respiratory rate 24 /min EMMANUEL THOMPSONT DO [facility] 05-02-2022 03:42-0400 Systolic blood pressure 130 mm[Hg] EMMANUEL FROMMELT DO [facility] 05-02-2022 03:12-0400 Body temperature 98.24 [degF] EMMANUEL FROMMELT DO [facility] 05-02-2022 03:12-0400 Heart rate 130 /min EMMANUEL FROMMELT DO [facility] 05-02-2022 03:11-0400 Heart rate 124 /min EMMANUEL KILLIAN DO [facility] 04-30-2022 15:40-0400 Body weight 57.61 kg Tracy Ramires APRN.AIR POLLUTION INSPECTOR Work Phone: [facility] 04-30-2022 15:40-0400 Diastolic blood pressure 75 mm[Hg] Tracy Ramires SENIOR WINDOWS SYSTEMS ENGINEER.AIR POLLUTION INSPECTOR Work Phone: [facility] 04-30-2022 15:40-0400 Heart rate 83 /min Tracy Ramires APRN.AIR POLLUTION INSPECTOR Work Phone: [facility] 04-30-2022 15:40-0400 Systolic blood pressure 138 mm[Hg] Tracy Ramires APRN.AIR POLLUTION INSPECTOR Work Phone: [facility] 03-13-2022 13:59-0400 Body height 165.1 cm Nicole Kenny APRN.AIR POLLUTION INSPECTOR Work Phone: [facility] 03-13-2022 13:59-0400 Body weight 60.92 kg Nicole Kenny APRN.AIR POLLUTION INSPECTOR Work Phone: [facility] 03-13-2022 13:59-0400 Diastolic blood pressure 76 mm[Hg] Nicole Kenny APRN.AIR POLLUTION INSPECTOR Work Phone: [facility] 03-13-2022 13:59-0400 Heart rate 81 /min Nicole Kenny APRN.AIR POLLUTION INSPECTOR Work Phone: [facility] 03-13-2022 13:59-0400 SaO2% (BldA) [Mass fraction] 96 % Nicole Kenny APRN.AIR POLLUTION INSPECTOR Work Phone: [facility] 03-13-2022 13:59-0400 Systolic blood pressure 157 mm[Hg] Nicole Kenny APRN.AIR POLLUTION INSPECTOR Work Phone: [facility] Encounters Encounter Date Encounter Type Care Provider Facility Start: 07-13-2025 ambulatory Ulises Cervantes ty:[facility] Start: 07-09-2025 End: 07-12-2025 Emergency department patient visit ARLEN STRONG SENIOR WINDOWS SYSTEMS ENGINEER-AIR POLLUTION INSPECTOR Facility:[facility] Start: 07-09-2025 End: 07-12-2025 Observation ARLEN STRONG SENIOR WINDOWS SYSTEMS ENGINEER-AIR POLLUTION INSPECTOR [facility] Start: 06-12-2025 End: 06-15-2025 Evaluation and management of inpatient DR JAE LUCIANO MD [facility] Start: 06-12-2025 End: 06-12-2025 Emergency department patient visit BRIAN AMOS DO [facility] Start: 05-16-2025 End: 05-24-2025 Evaluation and management of inpatient GWYN FERRARO SENIOR WINDOWS SYSTEMS ENGINEER-[facility] Start: 03-05-2025 ambulatory EMMA DIBEN Facility:[facility] Start: 03-04-2025 End: 03-06-2025 Emergency department patient visit DR LEAH KHAN DO Facility:[facility] Start: 03-04-2025 End: 03-06-2025 Observation TIFFANY HANSEN DO [facility] Start: 02-19-2025 ambulatory EMMA M JENNIEMARY JO DO Facil ity:A Start: 02-19-2025 End: 02-20-2025 Evaluation and management of inpatient EMMA DITCHEY Facility:[facility] Start: 02-03-2025 End: 02-03-2025 ambulatory EMMA DITCHEY Facility:[facility] Start: 12-25-2024 End: 12-25-2024 ambulatory EMMA DITCHEY Facility:[facility] Start: 12-25-2024 End: 12-25-2024 Patient encounter procedure XAVIER GONZALEZ MD [facility] Start: 12-14-2024 End: 12-14-[address] MILO ESTEBAN MD Facility: Start: 12-14-2024 End: 12-14-[address] MILO ESTEBAN MD [facility] Start: 12-11-2024 End: 12-11-2024 ambulatory EMMA QUEEN Facility:[facility] Start: 12-11-2024 End: 12-11-2024 Patient encounter procedure XAVIER GONZALEZ MD [facility] Start: 10-23-2024 End: 10-27-[address] ULISES HERMOSILLO MD Facility:[facility] Start: 10-23-2024 End: 10-27-2024 Outreach Lab EMMA QUEEN DO [facility] Start: 01-24-2024 Refill No Pcp SENIOR WINDOWS SYSTEMS ENGINEER [facility] [place] Comment on above: Refill Request Start: 12-23-2023 Refill Ulises ram MD Work Phone: [facility] [place] Comment on above: Refill Request Start: 10-18-2023 [...] Start: 06-06-2023 Refill Tracy E Ar y SENIOR WINDOWS SYSTEMS ENGINEER.AIR POLLUTION INSPECTOR Work Phone: Cardiology Comment on above: Refill Request Start: 05-28-2023 Orders Only Fifi Price er SENIOR WINDOWS SYSTEMS ENGINEER.AIR POLLUTION INSPECTOR Work Phone: Pulmonary Medicine Comment on above: Encounter for screen ing for lung cancer (Primary Dx); Tobacco use current Start: 05-10-2023 Telephone encounter Ulises cheng MD Work Phone: [facility] [place] Comment on above: Results Start: 05-09-2023 End: 05-09-2023 ambulatory MELY GRIFFIN Facility:[facility] Start: 05-09-2023 End: 05-09-2023 Patient encounter procedure Mely Griffin PA-C Work Phone: Pulmonary Medicine Comment on above: Stage 3 severe COPD by GOLD classification (HCC) (Primary Dx); Cigarette smoker; Lung nodules Start: 05-08-2023 End: 05-09-2023 ambulatory OLY OLDER Facility:[facility] Start: 05-08-2023 End: 05-08-2023 Subsequent hospital visit by physician Xr [facility] Work Phone: Radiology Comment on above: Chronic midline low back pain with sciatica, sciatica laterality unspecified [M54.40, G89.29] Start: 05-08-2023 End: 05-08-2023 Patient encounter procedure Oly Smith SENIOR WINDOWS SYSTEMS ENGINEER.AIR POLLUTION INSPECTOR Work Phone: [facility] [place] Comment on [...] 04-16-2023 ambulatory Melissa Vital MA [facility] Comment on above: Population Health Na vigation Outreach (Amandaator Kailash amaya [facility] gap outreach) Start: 04-02-2023 End: 04-02-2023 ambulatory DORON SELF Facility:[facility] Start: 02-26-2023 Refill Isauro Asher MD Work Phone: Pulmonary Medicine Comment on above: Refill Request Start: 01-07-2023 End: 01-07-2023 Emergency department patient visit ARMANDO BENAVIDES [facility] Start: 01-07-2023 End: 01-07-2023 Emergency department patient visit Armando Agarwal [place] POOLE Work Phone: [facility] Emergency Department Comment on above: Dehydration (Primary Dx) Start: 01-06-2023 Non-patient / Non-visit Dr. Amie Hermosillo Work Phone: [facility] Start: 01-05-2023 Non-patient / Non-visit Dr. Amie Hermosillo Work Phone: [facility] Start: 01-04-2023 Non-patient / Non-visit Dr. Amie Hermosillo Work Phone: [facility] Start: 01-04-2023 Non-patient / Non-visit Dr. Amie Hermosillo Work Phone: [facility] Start: 01-03-2023 Non-patient / Non-visit Dr. Amie Hermosillo Work Phone: [facility] Start: 01-02-2023 Non-patient / Non-visit Dr. Amie Hermosillo Work Phone: [facility] Start: 01-02-2023 End: 01-07-2023 Evaluation and management of inpatient Dr. 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 Work Phone: Internal Medicine [place] Comment on above: Alcohol withdrawal s yndrome without complication (HCC) (Primary Dx) Start: 01-01-2023 Telephone encounter Diana delarosa APPLICATIONS PACKAGER Work Phone: Adult Psychology Comment on above: Behavioral Health [facility] Work Start: 01-01-2023 End: 01-01-2023 Subsequent hospital visit by physician Xr [facility] Work Phone: Radiology Comment on above: Hemoptysis [R04.2] Start: 12-23-2022 End: 12-23-2022 Emergency department patient visit JOSE ROBERTO COMBS MD Facility:B Start: 12-23-2022 End: 12-23-2022 Emergency department patient visit DR JOSE ROBERTO COMBS MD [facility] Start: 12-14-2022 Refill Ulises ram MD Work Phone: [facility] Comment on above: Refill Request Start: 11-26-2022 End: 11-26-2022 ambulatory ISAURO ASHER Facility:[facility] Start: 11-26-2022 End: 11-26-2022 Patient encounter procedure Isauro Asher MD Work Phone: Pulmonary Medicine Comment on above: Hemoptysis (Primary Dx); Stage 3 severe COPD by GOLD classification ([facility]); Cigarette smoker Start: 10-26-2022 End: 10-26-2022 Emergency department [facility] Start: 10-26-2022 End: 10-26-2022 Emergency department patient visit JEOVANY TAYLOR MD [facility] Start: 10-02-2022 End: 10-02-2022 Patient encounter procedure Doron Self DO Work Phone: Vascular Surgery Comment on above: PAD (peripheral daxa ry disease) ([facility]) Start: 09-21-2022 Telephone encounter Doron Self DO Work Phone: Vasculary Surgery Comment on above: Patient Question Start: 09-19-2022 Telephone encounter Doron Self DO Work Phone: Vascular Surgery Comment on above: Orders Start: 09-05-2022 End: 09-05-2022 Patient encounter procedure Ulises Hermosillo MD Work Phone: Internal Medicine [place] Comment on above: Thrush (oral) (Prima ry Dx); Prediabetes; Essential hypertension Start: 09-05-2022 ambulatory Ulises ram MD Work Phone: Internal Medicine [place] Comment on above: Mouth/Lip Problem Start: 08-31-2022 End: 08-31-2022 Patient encounter procedure Olysky Smith SENIOR WINDOWS SYSTEMS ENGINEER.AIR POLLUTION INSPECTOR Work Phone: Internal Medicine [place] Comment on [...] Ulises cheng MD Work Phone: Internal Medicine [place] Comment on above: Patient Update Start: 08-02-2022 Telephone encounter Doron Self DO Work Phone: Vascular Surgery Comment on above: Appointment Start: 07-31-2022 End: 07-31-2022 Patient encounter procedure Nicole Kimimarcelle Kenny APRN.AIR POLLUTION INSPECTOR Work Phone: Pulmonary Medicine Comment on above: Lung nodules (Primar y Dx); Current smoker Start: 07-26-2022 ambulatory UNKNOWN PROVIDER Facili ty:[facility] Start: 07-20-2022 Refill Ulises ram MD Work Phone: Internal Medicine [place] Comment on above: Refill Request Start: 07-13-2022 Telephone encounter Doron Self DO Work Phone: Vascular Surgery Comment on above: Appointment Start: 07-09-2022 End: 07-09-2022 ambulatory Respiratory Therapist [facility] Work Phone: Pulmonary Medicine Comment on above: Arrived Start: 07-09-2022 End: 07-09-2022 Patient encounter procedure Respiratory Therapist [facility] Work Phone: [facility] Start: 07-06-2022 Telephone encounter Margaret Kasper MD Work Phone: Pulmonary Medicine Comment on above: Orders Start: 06-14-2022 Refill Ulises ram MD Work Phone: Internal Medicine [place] Comment on above: Refill Request Start: 06-06-2022 End: 06-06-2022 ambulatory Pulm Work Phone: Pulmonary Medicine Comment on above: Spirometry Start: 06-06-2022 End: 06-06-2022 Patient encounter procedure Pulm [facility] Work Phone: [facility] Comment on above: Asthma-COPD overlap syndrome (HCC) (Primary Dx); Wheezing; Smoking Start: 06-04-2022 Telephone encounter Ulises cheng MD Work Phone: Internal Medicine [place] Comment on above: Aerochamber spacer Start: 05-31-2022 Telephone encounter Ulises cheng MD Work Phone: Internal Medicine [place] Comment on above: Orders Start: 05-30-2022 Orders Only Nicole lang SENIOR WINDOWS SYSTEMS ENGINEER.AIR POLLUTION INSPECTOR Work Phone: Pulmonary Medicine Comment on above: Tobacco use disorder (Primary Dx) Smoker (Primary Dx); Encounter for screening for malignant neoplasm of lung Start: 05-28-2022 Refill Tracy kirkland SENIOR WINDOWS SYSTEMS ENGINEER.AIR POLLUTION INSPECTOR Work Phone: Cardiology Comment on above: Refill Request Start: 05-25-2022 Refill Ulises ram MD Work Phone: Internal Medicine [place] Comment on above: Refill Request Start: 05-23-2022 Telephone encounter Tracy Ramires SENIOR WINDOWS SYSTEMS ENGINEER.AIR POLLUTION INSPECTOR Work Phone: Cardiology Comment on above: Results Start: 05-21-2022 End: 05-21-2022 Patient encounter procedure [facility] Work Phone: Cardiology Comment on above: DIAZ (dyspnea on exer tion) Start: 05-11-2022 End: 05-11-2022 Patient encounter procedure Ulises Hermosillo MD Work Phone: Internal Medicine [place] Comment on above: Chronic bronchitis, unspecified chronic bronchitis type (HCC) (Primary Dx); Recurrent major depression in partial remission (HCC); Gastroesophageal reflux disease, unspecified whether esophagitis present; Need for vaccination; Bipolar affective disorder, current episode mixed, current episode severity unspecified (HCC); PAD (peripheral artery disease) (HCC) Start: 05-07-2022 Refill Ulises ram MD Work Phone: Internal Medicine [place] Comment on above: Refill Request Start: 05-02-2022 End: 05-05-2022 Evaluation and management of inpatient BETINA GODDARD MD Facility:A Start: 05-02-2022 End: 05-05-2022 Evaluation and management of inpatient DR BETINA GODDARD MD [facility] Start: 05-02-2022 End: 05-02-2022 Emergency department patient visit [facility] Facility:B Start: 05-02-2022 End: 05-02-2022 Emergency department patient visit [facility] DO [facility] Start: 04-30-2022 End: 04-30-2022 Patient encounter procedure Tracy Ramires SENIOR WINDOWS SYSTEMS ENGINEER.AIR POLLUTION INSPECTOR Work Phone: Cardiology Comment on above: DIAZ (dyspnea on exer tion) (Primary Dx); Essential hypertension; Coronary artery disease involving round valley coronary artery of round [place] heart without angina pectoris; Mixed hyperlipidemia; Smoker; Stenosis of carotid artery, unspecified laterality Start: 04-03-2022 Refill Ulises ram MD Work Phone: Internal Medicine [place] Comment on above: Refill Request Start: 03-16-2022 Refill Eri Fu APRN.AIR POLLUTION INSPECTOR Work Phone: Pulmonary Medicine Comment on above: Refill Request Start: 03-13-2022 End: 03-13-2022 Patient encounter procedure Nicole Kenny SENIOR WINDOWS SYSTEMS ENGINEER.AIR POLLUTION INSPECTOR Work Phone: Pulmonary Medicine Comment on above: Dyspnea on exertion (Primary Dx); Smoker; Encounter for screening for malignant neoplasm of lung Start: 03-01-2022 Refill Oly Smith SENIOR WINDOWS SYSTEMS ENGINEER .AIR POLLUTION INSPECTOR Work Phone: Internal Medicine [place] Comment on above: Refill Request Start: 10-10-2021 [facility] Start: 08-14-2021 [facility] Start: 08-14-2021 [facility] Start: 01-27-2021 End: 01-27-2021 Subsequent hospital visit by physician X[facility] Work Phone: Radiology Comment on above: Chest pain, unspecif ied type [R07.9] Pain [R52] Start: 09-28-2019 End: 10-06-2019 Patient encounter status [facility] [place] Work Phone: [facility] Start: 04-29-2018 Emergency department patient visit UNKNOWN PROVIDER [facility] Procedures Date Procedure Procedure Detail Performing Clinician Start: 07-09-2025 History of percutane ous transluminal coronary angioplasty ARLEN STRONG SENIOR WINDOWS SYSTEMS ENGINEER-AIR POLLUTION INSPECTOR Start: 06-12-2025 History of percutane ous transluminal coronary angioplasty DR JAE LUCIANO MD Start: 05-17-2025 History of percutane ous transluminal coronary angioplasty GWYN FERRARO SENIOR WINDOWS SYSTEMS ENGINEER-AIR POLLUTION INSPECTOR Start: 03-04-2025 History of percutane ous transluminal coronary angioplasty TIFFANY HANSEN DO Start: 05-08-2023 Radex spine lumbosac ral 2/3 views Oly Durbin SENIOR WINDOWS SYSTEMS ENGINEER.AIR POLLUTION INSPECTOR Work Phone: Start: 05-08-2023 Lipid 1996 panel [...] QUADRIVALENT HIGH DOSE AGE 65+ Oly Older SENIOR WINDOWS SYSTEMS ENGINEER.AIR POLLUTION INSPECTOR Work Phone: Start: 07-09-2022 Noninvasive ear/puls e oximetry multiple deter Margaret Kasper MD Work Phone: Start: 06-06-2022 Brncdilat rspse spmt ry pre&post-brncdilat admn Nicole Kenny SENIOR WINDOWS SYSTEMS ENGINEER.AIR POLLUTION INSPECTOR Work Phone: Start: 05-21-2022 Echo tthrc r-t 2d w/ wom-mode compl spec&colr d Tracy E Sima SENIOR WINDOWS SYSTEMS ENGINEER.AIR POLLUTION INSPECTOR Work Phone: Start: 08-25-2021 Cardiac catheterization GWYN FERRARO SENIOR WINDOWS SYSTEMS ENGINEER-AIR POLLUTION INSPECTOR Comment on above: with stents Start: 01-27-2021 Radiologic exam chest 2 views Ulises Hermosillo MD Work Phone: Start: 01-27-2021 Radex hips bilateral with pelvis minimum 5 views Babatunde Lomeli MD Work Phone: Start: 04-03-2017 Colonoscopy Oly Older SENIOR WINDOWS SYSTEMS ENGINEER.AIR POLLUTION INSPECTOR Work Phone: Cardiac catheterization TIFFANY HANSEN Comment on above: with stents Cervical (qualifier value) C [facility]EVAEH [facility] Comment on above: replacement of 2 dis cs Cholecystectomy [facility] Cholecystocecostomy [facility] Ear structure (body structure) DR MILO ESTEBAN MD Comment on above: left facial nerves r epair Hysterectomy [facility] Investigation of tra nsfusion reaction Dr. Ulises Hermosillo Work Phone: None (qualifier value) CHARL ES [facility] Respiratory microbial culture Dr. Ulises Hermosillo Work Phone: Tonsillectomy [facility] Upper limb structure (body structure) [facility] Comment on above: left Plan of Treatment Date Care Activity Detail Author Start: 05-08-2028 Lipid 1996 panel - Serum or Plasma Lipid Screening [facility] Start: 05-08-2028 Lipid panel Lipid Screening [facility] Start: 05-08-2028 LIPID SCREEN LIPID SCREEN [facility] Start: 04-03-2027 Colonoscopy COLONOSCOPY [facility] Start: 04-03-2027 COLORECTAL CANCER SCREENING COLORECTAL CANCER SCREENING [facility] Start: 04-03-2027 Screening for malignant neoplasm of colon [facility] Start: 09-27-2026 LIPID SCREEN LIPID SCREEN [facility] Start: 05-08-2026 DIABETES SCREEN DIABETES SCREEN [facility] Start: 05-08-2026 Diabetes Screening Diabetes Screening [facility] Start: 10-19-2024 DIABETES SCREEN DIABETES SCREEN [facility] Start: 07-12-2024 Covid-19 Vaccine () Covid-19 Vaccine () [facility] Start: 07-12-2024 Covid-19 Vaccine ( season) Covid-19 Vaccine ( season) [facility] Start: 07-12-2024 Influenza [facility] Start: 05-08-2024 ANNUAL PCP TEAM CHRONIC DISEASE VISIT ANNUAL PCP TEAM CHRONIC DISEASE VISIT [facility] Start: 05-08-2024 Hepatitis B surface antibody level LDL CHOLESTEROL [facility] Start: 01-01-2024 ANNUAL PCP TEAM CHRONIC DISEASE VISIT ANNUAL PCP TEAM CHRONIC DISEASE VISIT [facility] Start: 11-11-2023 Advance Directive Discussion Advance Directive Discussion [facility] Start: 09-05-2023 ANNUAL PCP TEAM CHRONIC DISEASE VISIT ANNUAL PCP TEAM CHRONIC DISEASE VISIT [facility] Start: 08-31-2023 ANNUAL PCP TEAM CHRONIC DISEASE VISIT ANNUAL PCP TEAM CHRONIC DISEASE VISIT [facility] Start: 08-31-2023 COVID-19 VACCINE (2 - Pfizer series) COVID-19 VACCINE (2 - Pfizer series) [facility] Comment on above: Postponed from 12/12/2021 (Declined at t his time) Postponed from 01/16 (Declined at this time) Start: 08-31-2023 SHINGRIX VACCINE (1 of 2) SHINGRIX VACCINE (1 of 2) [facility] Comment on above: Postponed from 2005 (Declined at t his time) Start: 08-31-2023 Urine microalbumin profile DTAP,TDAP,TD (1 - Tdap) [facility] Comment on above: Postponed from 1974 (Declined at t his time) Start: 07-26-2023 Influenza vaccination LUNG CANCER SCREENING [facility] Start: 07-26-2023 Screening for malignant neoplasm of lung Lung Cancer Screening [facility] Start: 07-12-2023 Covid-19 Vaccine ( season) Covid-19 Vaccine () [facility] Start: 07-12-2023 Influenza vaccination [facility] Start: 05-11-2023 ANNUAL PCP TEAM CHRONIC DISEASE VISIT ANNUAL PCP TEAM CHRONIC DISEASE VISIT [facility] Start: 05-11-2023 BP CONTROLLED (<130/80) BP CONTROLLED (<130/80) [facility] Start: 05-08-2023 End: 07-08-2023 Comprehensive metabolic 2000 panel - Serum or Plasma [facility] Work Phone: Comment on above: Expected: 05/08/2023, Expires: 3 Start: 05-08-2023 End: 07-08-2023 LIPID PANEL, NONFASTING [facility] Work Phone: Comment on above: Expected: 05/08/2023, Expires: 3 Start: 04-21-2023 PNEUMOVAX AGE 65 AND OVER WITH 5YR LOOKBACK (#1) PNEUMOVAX AGE 65 AND OVER WITH 5YR LOOKBACK (#1) [facility] Start: 01-07-2023 Patient discharge [facility] Start: 01-07-2023 [facility] Start: 01-03-2023 Care regimes management [facility] Start: 01-03-2023 Notification of physician [facility] Start: 01-03-2023 [facility] Start: 01-03-2023 Following clinical pathway protocol [facility] Start: 01-02-2023 Assessment of risk of venous thromboembolism [facility] Start: 01-02-2023 Incentive spirometry [facility] Start: 01-02-2023 Inhalation therapy procedure [facility] Start: 01-02-2023 Insertion of catheter into peripheral vein [facility] Start: 01-02-2023 Introduction of urinary catheter [facility] Start: 01-02-2023 Measuring intake and output [facility] Start: 01-02-2023 Notification of physician [facility] Start: 01-02-2023 Oxygen therapy [facility] Start: 01-02-2023 Providing care according to standard [facility] Start: 01-02-2023 Provision of activity privileges [facility] Start: 01-02-2023 Referral to service [facility] Start: 01-02-2023 Tobacco use cessation education [facility] Start: 01-02-2023 Vital signs measurements [facility] Start: 01-02-2023 [facility] Start: 01-02-2023 Electrocardiographic procedure [facility] Start: 01-02-2023 [facility] Start: 01-02-2023 Verification routine [facility] Start: 01-02-2023 Admission procedure [facility] Start: 01-02-2023 Patient referral to dietitian [facility] Start: 11-26-2022 End: 01-26-2023 Alpha 1 antitrypsin [Mass/volume] in Serum or Plasma [id number] Lab Routine Stage 3 severe COPD by GOLD classification (HCC) Expected: 11/26/2022, Expires: 01/26/2023 [facility] Work Phone: Comment on above: Expected: 11/26/2022, Expires: 3 Start: 11-26-2022 End: 01-26-2023 CBC W Auto Differential panel - Blood CBC + DIFF Lab Routine Hemoptysis Expected: 11/26/2022, Expires: 01/26/2023 [facility] Work Phone: Comment on above: Expected: 11/26/2022, Expires: 3 Start: 11-11-2022 ADVANCE DIRECTIVE DISCUSSION ADVANCE DIRECTIVE DISCUSSION [facility] Start: 10-19-2022 ANNUAL PCP TEAM CHRONIC DISEASE VISIT ANNUAL PCP TEAM CHRONIC DISEASE VISIT [facility] Start: 09-27-2022 Hepatitis B surface antibody level LDL CHOLESTEROL [facility] Start: 08-11-2022 End: 10-11-2022 CBC panel - Blood by Automated count CBC Lab Routine PAD (peripheral artery disease) (HCC) Expected: 08/11/2022, Expires: 10/11/2022 [facility] Work Phone: Comment on above: Expected: 08/11/2022, Expires: 2 Start: 08-11-2022 End: 10-11-2022 Comprehensive metabolic 2000 panel - Serum or Plasma COMP METABOLIC PANEL Lab Routine PAD (peripheral artery disease) (HCC) Expected: 08/11/2022, Expires: 10/11/2022 [facility] Work Phone: Comment on above: Expected: 08/11/2022, Expires: 2 Start: 08-11-2022 End: 10-11-2022 Lipid 1996 panel - Serum or Plasma LIPID PANEL BASIC Lab Routine PAD (peripheral artery disease) (HCC) Expected: 08/11/2022, Expires: 10/11/2022 [facility] Work Phone: Comment on above: Expected: 08/11/2022, Expires: 2 Start: 07-12-2022 Influenza vaccination [facility] Start: 12-12-2021 COVID-19 VACCINE (2 - Pfizer 3-dose series) COVID-19 VACCINE (2 - Pfizer 3-dose series) [facility] Start: 12-12-2021 COVID-19 VACCINE (2 - Pfizer series) COVID-19 VACCINE (2 - Pfizer series) [facility] Start: 11-11-2021 ADVANCE DIRECTIVE DISCUSSION ADVANCE DIRECTIVE DISCUSSION [facility] Start: 01-06-2021 BP CONTROLLED (<130/80) BP CONTROLLED (<130/80) [facility] Start: 2020 BONE DENSITY BONE DENSITY [facility] Start: 2020 Bone Density Screening Bone Density Screening [facility] Start: 2020 Screening for osteoporosis Bone Density Screening [facility] Start: 04-21-2019 PNEUMOCOCCAL: 65+ (2 - PCV) PNEUMOCOCCAL: 65+ (2 - PCV) [facility] Start: 2015 RSV Vaccine (1 - 1-dose 60+ series) RSV Vaccine (1 - 1-dose 60+ series) [facility] Start: 2015 RSV Vaccine (1 - Risk 60-74 years 1-dose series) RSV Vaccine (1 - Risk 60-74 years 1-dose series) [facility] Start: 2010 Influenza vaccination LUNG CANCER SCREENING [facility] Start: 2005 Influenza vaccination LUNG CANCER SCREENING [facility] Start: 2005 SHINGRIX VACCINE (1 of 2) SHINGRIX VACCINE (1 of 2) [facility] Start: 2000 COLOGUARD (FIT-DNA) COLOGUARD (FIT-DNA) [facility] Start: [address] COLONOGRAPHY [facility] Start: 2000 FECAL OCCULT BLOOD FECAL OCCULT BLOOD [facility] Start: 2000 Screening for malignant neoplasm of colon [facility] Start: 2000 SIGMOIDOSCOPY SIGMOIDOSCOPY [facility] Start: 1985 Zoledronic acid therapy ALPHA-1 ANTITRYPSIN DEFICIENCY SCREENING [facility] Start: 1974 DTaP/Tdap/Td vaccine (1 - Tdap) DTaP/Tdap/Td vaccine (1 - Tdap) [facility] Start: 1974 Urine microalbumin profile [facility] Start: 1961 PNEUMOCOCCAL: 65+ (1 - PCV) PNEUMOCOCCAL: 65+ (1 - PCV) [facility] End: 10-10-2022 CT LUNG SCREEN WO IVCON CT LUNG SCREEN WO IVCON Radiology Routine Smoker Encounter for screening for malignant neoplasm of lung 1 Occurrences starting 05/30/2022 until 10/10/2022 [facility] Work Phone: Comment on above: 1 Occurrences starting 05/30/2022 until 10/10/2022 End: 06-26-2024 CT LUNG SCREEN WO IVCON CT LUNG SCREEN WO IVCON Radiology Routine Encounter for screening for lung cancer Tobacco use current 1 Occurrences starting 05/28/2023 until 06/26/2024 [facility] Work Phone: Comment on above: 1 Occurrences starting 05/28/2023 until 06/26/2024 End: 09-30-2023 Dxa bone density study 1/> sites axial skel DXA-AXIAL SKELETON Radiology Routine Screening for osteoporosis Asymptomatic menopause 1 Occurrences starting 08/31/2022 until 09/30/2023 [facility] Work Phone: Comment on above: 1 Occurrences starting 08/31/2022 until 09/30/2023 End: 04-30-2023 Echocardiography ECHO Cardiology Routine DIAZ (dyspnea on exertion) 1 Occurrences starting 04/30/2022 until 04/30/2023 [facility] Work Phone: Comment on above: 1 Occurrences starting 04/30/2022 until 04/30/2023 EKG 12 Lead EKG 12 Lead ECG STAT 01/07/2023 6:50 PM EST [facility] Work Phone: End: 04-12-2023 LUNG DIFFUSION CAPACITY (DLCO) LUNG DIFFUSION CAPACITY (DLCO) PFT Routine Dyspnea on exertion 1 Occurrences starting 03/13/2022 until 04/12/2023 [facility] Work Phone: Comment on above: 1 Occurrences starting 03/13/2022 until 04/12/2023 End: 08-05-2023 OXIMETRY WITH AMBULATION OXIMETRY WITH AMBULATION PFT Routine SOB (shortness of breath) 1 Occurrences starting 07/06/2022 until 08/05/2023 [facility] Work Phone: Comment on above: 1 Occurrences starting 07/06/2022 until 08/05/2023 Patient referral [facility] Work Phone: End: 05-11-2023 PVR LEG SHERIN VAS LAB PVR LEG SHERIN VAS LAB Vascular Lab Routine PAD (peripheral artery disease) (HCC) 1 Occurrences starting 05/11/2022 until 05/11/2023 [facility] Work Phone: Comment on above: 1 Occurrences starting 05/11/2022 until 05/11/2023 End: 09-21-2023 PVR LEG SHERIN VAS LAB PVR LEG SHERIN VAS LAB Vascular Lab Routine Peripheral arterial disease (HCC) 1 Occurrences starting 09/21/2022 until 09/21/2023 [facility] Work Phone: Comment on above: 1 Occurrences starting 09/21/2022 until 09/21/2023 End: 10-02-2023 PVR LEG SHERIN VAS LAB PVR LEG SHERIN VAS LAB Vascular Lab Routine PAD (peripheral artery disease) (HCC) 1 Occurrences starting 10/02/2022 until 10/02/2023 [facility] Work Phone: Comment on above: 1 Occurrences starting 10/02/2022 until 10/02/2023 End: 06-06-2024 Radex spine lumbosacral 2/3 views XR LUMBAR GENERAL 3V AP/LAT/L5-S1 Radiology Routine Chronic midline low back pain with sciatica, sciatica laterality unspecified 1 Occurrences starting 05/08/2023 until 06/06/2024 [facility] Work Phone: Comment on above: 1 Occurrences starting 05/08/2023 until 06/06/2024 Radex spine lumbosac ral 2/3 views XR LUMBAR GENERAL 3V AP/LAT/L5-S1 Radiology Routine Chronic midline low back pain with sciatica, sciatica laterality unspecified 05/08/2023 1:01 PM EDT [facility] Work Phone: End: 12-26-2023 Radiologic exam chest 2 views XR CHEST 2V FRONTAL/LAT Radiology Routine Hemoptysis 1 Occurrences starting 11/26/2022 until 12/26/2023 [facility] Work Phone: Comment on above: 1 Occurrences starting 11/26/2022 until 12/26/2023 End: 04-12-2023 SPIROMETRY - BASELINE AND POST DILATOR SPIROMETRY - BASELINE AND POST DILATOR PFT Routine Dyspnea on exertion 1 Occurrences starting 03/13/2022 until 04/12/2023 [facility] Work Phone: Comment on above: 1 Occurrences starting 03/13/2022 until 04/12/2023 SPIROMETRY - BASELIN E AND POST DILATOR SPIROMETRY - BASELINE AND POST DILATOR PFT Routine Dyspnea on exertion 06/06/2022 9:25 AM EDT [facility] Work Phone: [facility] Immunizations Immunization Date Immunization Notes Care Provider [facility] 08-31-2022 influenza, high dose seasonal, preservative-free Dr. Ulises Hermosillo Work Phone: [facility] 08-31-2022 influenza, high-dose , quadrivalent vaccine (FLUZONE HIGH DOSE QUADRIVALENT) Oly Smith APRN.CNP Work Phone: [facility] 08-31-2022 influenza virus vacc ine, unspecified formulation Ulises Hermosillo MD Work Phone: [facility] 05-11-2022 pneumococcal Conjuga te, unspecified formulation Ulises Hermosillo MD Work Phone: [facility] Work Phone: 05-11-2022 pneumococcal (PCV20) vaccine, 20 valent (PREVNAR 20) Ulises Hermosillo MD Work Phone: [facility] 05-11-2022 pneumococcal 20-maryann nt conjugate vaccine TIFFANY PABONERLY DO [facility] 11-21-2021 Covid (Pfizer) Dr. Ulises Hermosillo Work Phone: [facility] 11-21-2021 COVID-19 vaccine, ag e 12+ yr ([facility]) Oly Older SENIOR WINDOWS SYSTEMS ENGINEER.AIR POLLUTION INSPECTOR Work Phone: [facility] Work Phone: Comment on above: Result Comment: 2024: INDIVIDUALS AGE 65 TO 69 YEARS OF AGE 1008-23-2020 influenza virus vacc ine, unspecified formulation TIFFANY JADE DO [facility] 08-23-2020 influenza, high-dose , quadrivalent vaccine (FLUZONE HIGH DOSE QUADRIVALENT) Oly Older SENIOR WINDOWS SYSTEMS ENGINEER.AIR POLLUTION INSPECTOR Work Phone: [facility] 01-06-2020 influenza virus vacc ine, unspecified formulation TIFFANY HANSEN DO [facility] 01-06-2020 influenza, injectabl e, quadrivalent, contains preservative Oly Older SENIOR WINDOWS SYSTEMS ENGINEER.AIR POLLUTION INSPECTOR Work Phone: [facility] Work Phone: 04-21-2018 pneumococcal polysaccharide vaccine, 23 valent Oly Older SENIOR WINDOWS SYSTEMS ENGINEER.AIR POLLUTION INSPECTOR Work Phone: [facility] 09-13-2011 influenza, seasonal, injectable, preservative free EMMANUEL KILLIAN DO [facility] 09-13-2011 pneumococcal polysaccharide vaccine, 23 valent EMMANUEL KILLIAN DO [facility] Payers Date Payer Category Payer Self-pay [id number] 2025 Private Health Insurance [id number] 2024 Unknown [id number] 2022 Medicare [id number] 2021 Unknown ANTHEM BLUE CROS S AND BLUE SHIELD ANTHEM MEDIBLUE HMO [id number] 2021-Present [phone] [address] [place] [address] O [id number]. [id number] 2021 Unknown [id number] 2021 Medicaid [place] [id number] 2021-Present [phone] [address] [place] [address] Medicaid [id number]. [id number] 2021 Medicaid [id number] 2021 Medicaid [id number]. 1.13.159.2. [id number] 2021 Unknown 2021 Unknown [id number] 2021 Medicare [id number]. 1.13.159.2. [id number] 1955 Unknown [id number] 2.16.840.1.961573.3.579.2. 627 1955 Unknown [id number] 2.16.840.1.979864.3.579.2. 627 1955 Unknown [id number] 2.16.840.1.613258.3.579.2. 627 1955 Unknown [id number] 2.16.840.1.122991.3.579.2. 1955 Unknown [id number] 2.16.840.1.769797.3.579.2. 204 1955 Unknown [id number] 2.16.840.1.849056.3.579.2. 1955 Unknown [id number] 2.16.840.1.600320.3.579.2. 1955 Unknown [id number] 2..840.1.351484.3.579.2. 1955 Unknown [id number] 2..840.1.938499.3.579.2. 1955 Unknown [id number] 2.840.1.278118.3.579.2. 1955 Unknown [id number] 2.840.1.033625.3.579.2. 1955 Unknown [id number] 2.840.1.184211.3.579.2. 1955 Unknown [id number] 2.840.1.604278.3.579.2. 1955 Unknown [id number] 2.16.840.1.697360.3.579.2. 1955 Unknown [id number] 2.16.840.1.697976.3.579.2. 1955 Unknown [id number] 2.16.840.1.268716.3.579.2. 1955 Unknown [id number] 2.16.840.1.371933.3.579.2. 1955 Unknown [id number] 2.16840.1.410862.3.579.2. 627 Private Health Insurance [facility] 18 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 w/o Contrast 03/10/2025 04:00 PM EDT [facility] [phone] Confirmed PC OV 07/30/2025 10:00 AM EDT EMMA QUEEN DO [address] [phone] Confirmed Follow Up Appointments Follow Up with EMMA QUEEN DO When:Within 3-5 days Where:[address] [place] [phone] Additional Information: Please call to schedule your [...] a day Duration: 30 Days Pickup at [id number] New predniSONE (prednisone 10mg tab (TAPER)) Taper 61-86-77-89-61-62-10-5 mg x 1 day until gone by mouth Once a day (in the morning) Duration: 8 Days Pickup at [facility]/pharmacy [id number] 03/06 Unchanged albuterol (albuterol MDI (90 mcg/ inh) CFC free inhalation aerosol) 2 puff(s) by inhalation Four (4) times a day as needed for as needed for wheezing COPD with chronic bronchitis Pickup at [facility]/pharmacy #[id number] 03/06 Unchanged albuterol [...] bedtime Psychophysiologic insomnia 08pm 03/05 Pharmacy Information [facility]/pharmacy #[id number]: [address], [place] [phone] Please take this list to your next [...] may report side effects to FDA at [phone]. What other drugs will affect clopidogrel? Sometimes it is not safe to use certain medications at the same time. Some drugs can affect your blood levels of other drugs you take, which may increase side effects or make the medications less effective. Tell your doctor about all your other medicines, especially: a stomach acid optical goods drilling machine operator such as omeprazole, Nexium, or Prilosec; an antidepressant such as citalopram, fluoxetine, sertraline, Cymbalta, Effexor, Lexapro, Pristiq, or Prozac; rifampin; a blood thinner--warfarin, Coumadin, Jantoven; or NSAIDs (nonsteroidal anti-inflammatory drugs)--aspirin, ibuprofen (Advil, Motrin), naproxen (Aleve), celecoxib, diclofenac, indomethacin, meloxicam, and others. This list is not complete. Other drugs may affect clopidogrel, including prescription and rmdr-afv-jhofwzt medicines, vitamins, and herbal products. Not all [...] to ensure that the information provided by [employer]. ('Multum') is accurate, up-to-date, and complete, but no guarantee is made to that effect. Drug information contained herein may be time sensitive. MiMedia information has been compiled for use by healthcare practitioners and consumers in the [place] and therefore MiMedia does not warrant that uses outside of the [place] are appropriate, unless specifically indicated otherwise. [employer] drug information does not endorse drugs, diagnose patients or recommend therapy. [employer] drug information isan informational resource designed to [...] effective or appropriate for any given patient. [employer] does not assume any responsibility for any aspect of healthcare administered with the aid of information Mi[employer] provides. The information contained herein is not intended to cover all possible uses, directions, precautions, warnings, drug interactions, allergic reactions, or adverse effects. If you have questions about the drugs you are taking, check with your doctor, nurse or pharmacist. Copyright 1198-7511 [employer]. Version: 18.. Revision Date: 02/08/2021. Education Materials [...] oxygen Your health care provider or a entry level marketing representative from your director medical surgical company will show you how touse your [...] not move around. Follow instructions from your director medical surgical company about how to safely secure your tank. Make sure you have enough oxygen for the amount of time you will be away from home. If you are planning air travel, contact the airline to find out if they allow the use of an approved portable oxygen concentrator. You may also need documents from your health care provider and director medical surgical company before you travel. General safety tips [...] Summary Your health care provider or a entry level marketing representative from your director medical surgical company will show you how touse your [...] 01/17/2005 Document Revised: 04/16/2019 Document Reviewed: 05/21/2017 iMall.eu Patient Education 2020 iMall.eu Inc. Chronic Obstructive Pulmonary Disease Chronic obstructive [...] Follow these instructions at home: Medicines Take gjdb-usj-zkyzher and prescription medicines only as told by [...] keep yourself as healthy as possible. Take tbag-prc-hyqjrnx and prescription medicines only as told by your doctor. If you smoke, stop. Smoking makes the problem worse. This information is not intended to replace advice given to you by your health care provider. Make sure you discuss any questions you have with your health care provider. Document Released: 04/15/2009 Document Revised: 10/10/2018 Document Reviewed: 12/02/2017 iMall.eu Patient Education 2020 iMall.eu Inc. Additional Information VACCINATE! IT SAVES LIVES! Members of the community who have not yet received the COVID-19 vaccine and would like to receive it can visit one of [facility] vaccine clinics. There are many vaccine clinic locations within the [facility]. For locations and available times, please visit https://gettheshot.coronavirus.[place].gov/. It is important to note that some COVID mobile vaccine clinics are held outdoors and may be canceled in rainy or stormy conditions. To learn more about pediatric vaccinations (ages 5-11), we invite you to visit the [facility] webpage. https://www.[facility].org/pages/1632-Ddexi-Tgmzthvgqhe-Lvwindiyft-Mwvlt-Ndw stions.htmlTo learn more about the COVID-19 vaccine, we invite you to visit the CDC website for a list of frequently asked questions.https://www.cdc.gov/coronavirus/2019-ncov/vaccines/faq.html [facility] Patient Portal Access Instructions: Stay connected with your healthcare team and access your personal medical information anytime with the [facility] Patient Portal. Please follow the directions below to create your [employer] account: 1.Access the email account you provided upon registration to the hospital/physician office.2.Look for an invitation email from [facility].3.Open the email and access the invitation link: AcceptInvitation to [employer].4.Fill in the required randle to create your account. To access your account, visit [email or web address]. Click the blue button labeled Access Patient Portal and then log in with the username and password that you created in the steps above. You will be able to view your test results, lab results, a summary of your visits, upcoming appointments and more. There is also a convenient messaging option where you can send secure messages to your p Globoforcevider. In addition, you will have the ability to download any documents or summaries to your computer and/or send the information securely to a physician. Remember that your healthcare information is confidential, so carefully consider who you will allowto register on the [facility] Patient Portal for access to your information. You can also access the [facility] Patient Portal on the [facility] Oxford Photovolta[employer]where larissa. Simply click on Patient Portal and then log into your account. If you would like to receive a full copy of your medical records, please contact the [facility] Medical Records Department by calling [phone], Saturday through Saturday between 8 a.m. and [...] Call your local pharmacy or go to http://bit.ly/4W9Xc7a to find one close to you.3.Make use of household items: Use cat litter or old coffee grounds to dispose medications if other options arenot available. Mix your drugs with these household products, seal them in an airtight container andthrow it into the garbage. Call [facility]: [phone] to be sure your drugs can be [...] Oxygen Use, Adult Chronic Obstructive Pulmonary Disease, Ohbd-ef-Mdjp Medication Leaflets Plavix My discharge plan and instructions have been reviewed and explained to me and I,STEVEN KOENIG understand my current condition and have read and understand these discharge instructions. I have received a written copy of the plan/instructions. If I have questions, I am aware that I should contact my doctor. 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 Patient presented to [facility] emergency department 03/04/2025 via EMS for [...] by ARLEN STRONG on 03/06/2025 08:56 AM [facility]04-25-2025 Nurse Progress note Hospice nurse in [facility] to get patient and patients family educated on Hospice and get patient signed [facility] with [facility]. At this time pt is [...] Christina Logan RN on 03/05/2025 06:09 PM [facility]04-25-2025 Pastoral care Progress note Pastoral Care Note Entered On: 03/05/2025 9:50 EDT Performed On: 03/05/2025 9:48 EDT by Jatinder Turk Pastoral Care Type of Pastoral Visit : Initial visit Spiritual Care Visit Initiated by : Pediatric Care Coordinator Spiritual Care Reason for Visit : General Spiritual Assessment : Not using [employer], Spiritual, not Presybeterian, Positive Image of [employer] Spiritual Care Emotional [...] by Jatinder Turk on 03/05/2025 09:48 AM [facility]04-24-2025 Note Date of Service 03/04/2025 Chief [...] 2 L nasal cannula. Patient presented to [facility] emergency department 03/04/2025 via EMS for [...] by ARLEN STRONG on 03/04/2025 03:24 PM [place] [address]-24-2025 Evaluation + Plan noteExtracted from: Title:History and Physical Author:ARLEN STRONG SENIOR WINDOWS SYSTEMS ENGINEER-AIR POLLUTION INSPECTOR Date:03/04/25 1. Chronic obstructive pulmo nary disease [...] Appointments Appointment Date:03/10/2025 04:00:00 PM Scheduled Provider: Location:[facility] Appointment Type:CT Chest (Low Dose) Screening/CT Lung (L Appointment Date:07/30/2025 10:00:00 AM Scheduled Provider:EMMA QEUEN DO Location:[facility] Appointment Type: OV Future Scheduled Tests Laboratory* Basic Metabolic Panel 01/11/25 * N-Terminal proBNP 01/11/25 Radiology* MRI Cardiac Morphology & Func W+W/O Cont 02/23/25 * CT Low Dose Lung Cancer Screening (LDCT) 03/10/25 [facility] 04-24-2025 HCoV 229E RNA IVANA+non-probe Ql (Nph)Not Detected *NA* (03/04/25 10:09 AM)AH Auto Viro/Sero [id number] Note* Exam Date Time Procedure Performing Provider Status 03/04/25 6:21 AM XR Chest 1 View CLAUDE CAMPUZANO MD; Auth (Verified) [id number] ORIGINAL EXAMINATION: ONE XRAY VIEW OF THE [...] Date: 03/04/2025 6:41:45 AM Ordering Provider: EMMANUEL SHAIKHMAIMONID[facility]04-24-2025 Note* Exam Date Time Procedure Performing Provider Status 03/04/25 6:01 AM EKG [ED AOH] - CV DONNALuis EMMANUEL ; Auth (Verified) ECG Final Report Sinus rhythm Probable left atrial enlargement Probable left ventricular hypertrophy Anterior Q waves, possibly due to LVH Compared to ECG at 02/19/2025 01:15:39 BORDERLINE ECG Electronic Signature: NEELYONATHANLuis EMMANUEL 03/04/2025 06:19:02 [facility]04-16-2025 Note. MICRO - Microbiology PROCEDURE: Blood Culture [...] Locations *1: This test was performed at: [address], [address] [place], [place] [address]-16-2025 Note. MICRO - Microbiology PROCEDURE: Blood Culture [...] Locations *1: This test was performed at: [address], [address] [place], [place] [address]-11-2025 Note. MICRO - Microbiology PROCEDURE: Streptococcus Pneumoniae [...] Locations *1: This test was performed at: [address]04-11-2025 Note. MICRO - Microbiology PROCEDURE: Legionella [...] was performed at: [facility], [address] [place] [address], [facility]- , [facility]25 Hospital Discharge instructions Patient Education 12/14/2024 [...] Document Reviewed: 10/29/2014 ExitCare Patient Information 2015 [employer]. This information is not intended to replace [...] until you are awake and alert. Take hacn-vah-iuiqbgl and prescription medicines only as told by [...] 08/18/2014 Document Revised: 10/10/2018 Document Reviewed: 02/16/2017 iMall.eu Patient Education 2020 incrediblue. Follow Up Care 11/30/2024 10:45:53 With:XAVIER GONZALEZ MD Address: [address] [place] [address] [address] [place] [address]- When:01/18/2025 10:00:00 [facility] 02-03-2025 Summary of episode note Discharge Instructions Thank you for allowing [facility] to assist you with your healthcare needs. The following is importantdischarge information regarding your hospital visit. Your Care Team EMMA QUEEN DO What to do next Scheduled Follow-Up Appointments Appointment Type When With Where Contact Information StatusEcho - Echocardiogram Adult 12/18/2024 02:00 PM EST [facility] [phone] Confirmed CV OV 01/18/2025 10:00 AM EDT [facility] [place] Confirmed PC OV 01/21/2025 02:00 PM EDT EMMA QUEEN DO [address] [phone] Confirmed Follow Up Appointments Follow Up with XAVIER GONZALEZ MD When:01/18/2025 10:00 AM EDT Where:[address] [place] [address] [address] [place] [address]- The Following Activity and Diet Have Been [...] Document Reviewed: 10/29/2014 ExitCare Patient Information 2015 [employer]. This information is not intended to replace [...] until you are awake and alert. Take yfhg-vsf-eglxnue and prescription medicines only as told by [...] 08/18/2014 Document Revised: 10/10/2018 Document Reviewed: 02/16/2017 [employer]. [employer]ibes Patient Education 2020 incrediblue. Additional Information VACCINATE! IT SAVES LIVES! Members of the community who have not yet received the COVID-19 vaccine and would like to receive it can visit one of [facility] vaccine clinics. There are many vaccine clinic locations within the [facility]. For locations and available times, please visit https://gettheshot.coronavirus.[place].gov/. It is important to note that some COVID mobile vaccine clinics are held outdoors and may be canceled in rainy or stormy conditions. To learn more about pediatric vaccinations (ages 5-11), we invite you to visit the [facility] webpage. https://www.[facility].org/pages/2979-Jdyhk-Seutaspeaes-Xxfgcyesjj-Rueuw-Wtw stions.htmlTo learn more about the COVID-19 vaccine, we invite you to visit the CDC website for a list of frequently asked questions.https://www.cdc.gov/coronavirus/2019-ncov/vaccines/faq.html [facility] Patient Portal Access Instructions: Stay connected with your healthcare team and access your personal medical information anytime with the [facility] Patient Portal. Please follow the directions below to create your [employer] account: 1.Access the email account you provided upon registration to the hospital/physician office.2.Look for an invitation email from [facility].3.Open the email and access the invitation link: AcceptInvitation to [facility].4.Fill in the required randle to create your account. To access your account, visit [email or web address]. Click the blue button labeled Access Patient [...] who you will allowto register on the [facility] Patient Portal for access to your information. You can also access the [facility] on the [facility] larissa. Simply click on Patient Portal and then log into your account. If you would like to receive a full copy of your medical records, please contact the [facility] Medical Records Department by calling [phone], Saturday through Saturday between 8 a.m. and [...] Call your local pharmacy or go to [email or web address].MicroJob/[email or web address] to find one close to you.3.Make use of household items: Use cat litter or old coffee grounds to dispose medications if other options arenot available. Mix your drugs with these household products, seal them in an airtight container andthrow it into the garbage. Call [facility]: [phone] to be sure your drugs can be [...] aware that I should contact my doctor. 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 Appointment to establish care is 01/31/2024 but inhaler is completely out and patient is having trouble with wheezing/sob. Pended. Patient requests call back at [phone]. Nena Dozier, RN documented in this encounterMiami Valley Hospital02-13-2024 Miscellaneous Notes* Telephone Encounter - Christina Greco LPN - 12/24/2023 9:41 AM EST Spoke with pt and she reports she is going to stay in [place] and will be getting an apt scheduled with Dr.Jacqueline Beaver. Does not have an apt yet Pt has been waiting for her insurance to start at the beginning of the month. Christina Greco LPN * Telephone Encounter - Oly Durbin APRN.CNP - 12/24/2023 9:03 AM EST Patient was advised in September that she needed to find new PCP in [place] if she was going to remain there. [...] you. Irena Cantor LPN. documented in this encounterMiami Valley Hospital12-08-2023 Miscellaneous Notes* Telephone Encounter - Ranulfo [...] notify patient. Telma Austin documented in this encounterMiami Valley Hospital11-16-2023 Miscellaneous Notes* Telephone Encounter - Sal Lee LPN - 09/26/2023 8:08 AM EST Pt notified of pcp's message. Pt states she will be coming back to [place]. Is just in [place] for a few months to help out [...] to report that she is currently in [place] and will be there for the next several months. Patient is going to run out of medication and is unable to transfer prescriptions. Patient asking if provider would send prescriptions to [facility] pharmacy in [place]. Pended 90 day request for review. Nena Dozier, RN documented in this encounterMiami Valley Hospital09-08-2023 NotePatient Outreach (NETNAV) STEVEN KOENIG ([id number]) 1955 F Date Time Provider Department 07/19/23 MELISSA VITAL During your visit today, we recorded the following information about you: Melissa Vital MA 07/19/2023 3:08 PM Addendum POPULATION HEALTH NAVIGATION OUTREACH Action/FYI Spoke with patient. Patient declined scheduling annual wellness exam/htn appointment. Patient states in [place] right now. Patient reminded of flu shot due Per 05/08/23 [facility] office note return in about 6 months (around 11/07/23) for medicare wellness exam. Patient Identified by Name and : YES, via phone Outreach Outcome/Action Spoke to patient / parent / legal guardian: Patient declined Did you use a PCP flex slot to schedule this appointment? N/A Reason for Outreach Care Gap or Scheduling/Wellness visits Payer: Payor: SINDI burrp! AND [employer] [facility] / Plan: [employer] HMO / Product Type: HMO / Care [...] Health Navigation Outreach [3910] Cmt: Navigator Kailash [facility] outreach Prescriptions as of 07/19/2023 - aspirin [...] 1 TABLET BY MOUTH EVERY DAY - rtpxcmowuym-rhhmmqqmf-oagoeedi (TRELEGY ELLIPTA) 200-62.5-25 mcg inhalation powder Inhale [...] 07/07/2020 PAD (peripheral artery disease) ([facility]) [I73.9] 09/28/2019 Anxiety and depression [F41.9, F32.A] [...] on 07/19/23[facility] 07-19-2023 NoteHNO ID: [id number] Author: Melissa Vital MA Service: ? Author Type: Working Second Hand Type: Progress Notes Filed: 07/19/2023 3:08 PM Note Text: POPULATION HEALTH NAVIGATION OUTREACH Action/FYI Spoke with patient. Patient declined scheduling annual wellness exam/htn appointment. Patient states in [place] right now. Patient reminded of flu shot due Per 05/08/23 [employer] office note return in about 6 months (around 11/07/23) for medicare wellness exam. Patient Identified by Name and : YES, via phone Outreach Outcome/Action Spoke to patient / parent / legal guardian: Patient declined Did you use a PCP flex slot to schedule this appointment? N/A Reason for Outreach Care Gap or Scheduling/Wellness visits Payer: Payor: [employer] / Plan: [employer] HMO / Product Type: HMO / Care Gap Reviewed:: Annual Wellness visit Controlling Blood Pressure Flu Vaccine Reminder: Reminder note to check Health Maintenance for items below Health Maintenance items due: BONE DENSITY Never done BP CONTROLLED (<130/80) due on 01/06/2021 INFLUENZA(1) due on 07/12/2023 Navigation Signature: Melissa Vital MA July 19, 2023 10:53 [facility]08-03-2023 Miscellaneous Notes* Telephone Encounter - Elizabeth Ly Ma - 06/13/2023 4:23 PM EDT Patient contacted via telephone regarding upcoming NEW patient appointment with Dr. Harris on 06/14/23. Patient informed of the following: [facility] calling regarding your upcoming appointment with Dr. Harris. To avoid a delay in your care, please bring any radiology images that have been done [facility] on a disk to be [...] this appointment Appointment canceled. documented in this encounterMiami Valley Hospital08-03-2023 Miscellaneous Notes* Telephone Encounter - Irena [...] to be taking. Please call her at [phone]. documented in this encounterMiami Valley Hospital07-31-2023 Miscellaneous Notes* Telephone Encounter - Ranulfo [...] notify patient. Cailin Austin documented in this encounterMiami Valley Hospital07-28-2023 Miscellaneous Notes* Telephone Encounter - Jenn Almaraz RN - 06/07/2023 8:18 AM EDT Pharmacy electronically requests the following refill(s) Requested Prescriptions Pending Prescriptions Disp Refills amLODIPine (NORVASC) 10 mg tablet [Pharmacy Med Name: AMLODIPINE BESYLATE 10 MG TAB] 90 tablet 3 Sig: TAKE 1 TABLET BY MOUTH EVERY DAY Jenn Almaraz RN documented in this encounterMiami Valley Hospital06-30-2023 Miscellaneous Notes* Telephone Encounter - Hyacinth Suero LPN - 05/10/2023 2:59 PM EDT Spoke with pt gave information provided. P[t voices understanding. Will try cholesterol med uses [facility] in [place]. Please assist in scheduling with physical therapy [...] advise, Christina Franco RN documented in this encounterMiami Valley Hospital06-29-2023 NoteHNO ID: [id number] Author: Mely Griffin PA-C Service: ? Author Type: Physician Electrical Superintendent Type: Progress Notes Filed: 05/09/2023 2:05 PM [...] Bipolar affective disorder, currently active ([facility]) 01/18/2016 Dr. Angie Jones, [facility] Chronic bronchitis ([facility]) 07/26/2016 Closed skull fracture ([facility]) 1994 [facility], [facility] Coronary artery disease DDD (degenerative disc disease), cervical Endometriosis 2007 Essential hypertension 12/14/2015 GERD (gastroesophageal reflux disease) 03/13/2019 History of colon polyps History of gastric ulcer 12/14/2015 HLD (hyperlipidemia) Injury of left facial nerve 1994 PAD (peripheral artery disease) ([facility]) 09/28/2019 Recurrent major depression in partial remission ([facility]) 12/14/2015 S/P drug eluting coronary stent placement 08/25/2021 LAD and Dg2 Spinal stenosis Allergies: No Known Allergies isosorbide mononitrate ER (IMDUR) 30 mg 24 hr tablet TAKE 1 TABLET BY MOUTH EVERY DAY traZODone (DESYREL) 100 mg tablet Take 2 tablets by mouth daily at bedtime. cuhpyecdpei-ebccvjzpc-ficxzfyl (TRELEGY ELLIPTA) 200-62.5-25 mcg inhalation powder Inhale [...] TOTAL FACIAL NERVE DECOMPRESSION AND/REPAIR Left 1989 [facility] I reviewed the past medical history, [...] Bipolar affective disorder, currently active ([facility]) 01/18/2016 Dr. Angie Jones, [facility] Chronic bronchitis ([facility]) 07/26/2016 Closed skull fracture ([facility]) 1994 [facility], [facility] Coronary artery disease DDD (degenerative disc disease), cervical Endometriosis 2007 Essential hypertension 12/14/2015 GERD (gastroesophageal reflux disease) 03/13/2019 History of colon polyps History of gastric ulcer 12/14/2015 HLD (hyperlipidemia) Injury of left facial nerve 1994 PAD (peripheral artery disease) ([facility]) 09/28/2019 Recurrent major depression in partial remission ([facility]) 12/14/2015 S/P drug eluting coronary stent placement 08/25/2021 LAD and Dg2 Spinal stenosis Allergies: No Known Allergies isosorbide mononitrate ER (IMDUR) 30 mg 24 hr tablet TAKE 1 TABLET BY MOUTH EVERY DAY traZODone (DESYREL) 100 mg tablet Take 2 tablets by mouth daily at bedtime. qekwupxfvag-vrcjzrfyu-lnfulbxq (TRELEGY ELLIPTA) 200-62.5-25 mcg inhalation powder Inhale [...] TOTAL FACIAL NERVE DECOMPRESSION &/REPAIR Left 1989 [facility] I reviewed the past medical history, [...] 57.2 kg (126 lb) LMP (LMP Unknown) EdO496% BMI 22.32 kg/m Gen: No acute distress. [...] necessary. Mely Griffin PA-C documented in this encounterMiami Valley Hospital06-28-2023 NoteHNO ID: [id number] Author: RT Aziza(Vicky) Service: ? Author Type: Vocal Teacher Type: Progress Notes Filed: 05/08/2023 1:01 PM [...] BY: RT Aziza(R) May 08, 2023 12:52 [facility]06-28-2023 NoteHNO ID: [id number] Author: Oly Smith APRN.LINDA Service: ? Author [...] Bipolar affective disorder, currently active ([facility]) 01/18/2016 [facility] Chronic bronchitis ([facility]) 07/26/2016 Closed skull fracture ([facility]) 1994 [facility], [facility] Coronary artery disease DDD (degenerative disc disease), cervical Endometriosis 2007 Essential hypertension 12/14/2015 GERD (gastroesophageal reflux disease) 03/13/2019 History of colon polyps History of gastric ulcer 12/14/2015 HLD (hyperlipidemia) Injury of left facial nerve 1994 PAD (peripheral artery disease) ([facility]) 09/28/2019 Recurrent major depression in partial remission ([facility]) 12/14/2015 S/P drug eluting coronary stent placement [...] TOTAL FACIAL NERVE DECOMPRESSION AND/REPAIR Left 1989 [facility] ALLERGIES Patient has no known allergies. [...] 2 tablets by mouth daily at bedtime. 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 Chronic bronchitis ([facility]) 07/26/2016 Closed skull fracture ([facility]) 1994 [facility], [facility] Coronary artery disease DDD (degenerative disc disease), cervical Endometriosis 2007 Essential hypertension 12/14/2015 GERD (gastroesophageal reflux disease) 03/13/2019 History of colon polyps History of gastric ulcer 12/14/2015 HLD (hyperlipidemia) Injury of left facial nerve 1994 PAD (peripheral artery disease) ([facility]) 09/28/2019 Recurrent major depression in partial remission ([facility]) 12/14/2015 S/P drug eluting coronary stent placement [...] TOTAL FACIAL NERVE DECOMPRESSION &/REPAIR Left 1989 [facility] ALLERGIES Patient has no known allergies. [...] 2 tablets by mouth daily at bedtime. afqfmupezsj-eqdlmubdj-aapzocfs (TRELEGY ELLIPTA) 200-62.5-25 mcg inhalation powder Inhale [...] plan. Oly Smith APRN.CNP documented in this encounterMiami Valley Hospital06-28-2023 Instructions* Patient Instructions* Oly Smith APRN.CNP - 05/08/2023 12:24 PM EDT [facility] dermatology [phone] documented in this encounterMiami Valley Hospital06-08-2023 NoteHNO ID: [id number] Author: Melissa Vital MA Service: ? Author Type: Working Second Hand Type: Progress Notes Filed: 04/18/2023 10:01 AM [...] Melissa Vital MA April 18, 2023 9:59 [facility]06-06-2023 NotePatient Outreach (NETNAV) STEVEN KOENIG ([id number]) 1955 F Date Time Provider Department 04/16/23 MELISSA VITAL During your visit today, we recorded the following information about you: Melissa Vital MA 04/16/2023 11:48 AM Signed POPULATION HEALTH NAVIGATION OUTREACH Action/FYI Spoke with patient. Patient states will call back later to schedule. Annual wellness/htn/HCC Declined my chart Will discuss AD with PCP Navigator Kailash amaya [facility] gap outreach F31.9 - Bipolar affective disorder, currently active (HCC) - [id number] Last Billed 08/31/2022 F33.41 - Recurrent major depression in partial remission (HCC) - [id number] Last Billed 08/31/2022 Patient Identified by Name and : YES, via phone Outreach Outcome/Action Spoke to patient / parent / legal guardian: Patient will return the call or ask for return call Did you use a PCP flex slot to schedule this appointment? N/A Reason for Outreach HCC or suspected condition Payer: Payor: [employer] / Plan: [employer] HMO / Product Type: HMO / Care [...] Health Navigation Outreach [3910] Cmt: Janette amaya [facility] outreach Prescriptions as of 04/18/2023 - isosorbide mononitrate ER (IMDUR) 30 mg 24 hr tablet TAKE 1 TABLET BY MOUTH EVERY DAY - predniSONE (DELTASONE) 10 mg tablet TAKE TWO DAILY FOR 5 DAYS THEN ONE DAILY FOR 10 DAYS - traZODone (DESYREL) 100 mg tablet Take 2 tablets by mouth daily at bedtime. - zupgqilrmrx-qkwvdyyka-elqlsqfs (TRELEGY ELLIPTA) 200-62.5-25 mcg inhalation powder Inhale [...] content not included)...[facility]06-06-2023 NoteHNO ID: [id number] Author: Melissa Vital MA Service: ? Author Type: Working Second Hand Type: Progress Notes Filed: 04/16/2023 11:48 AM Note Text: POPULATION HEALTH NAVIGATION OUTREACH Action/FYI Spoke with patient. Patient states will call back later to schedule. Annual wellness/htn/HCC Declined my chart Will discuss AD with PCP Navigator Kailash amaya HCC gap outreach F31.9 - Bipolar affective disorder, currently active (HCC) - [id number] Last Billed 08/31/2022 F33.41 - Recurrent major depression in partial remission (HCC) - [id number] Last Billed 08/31/2022 Patient Identified by Name and : YES, via phone Outreach Outcome/Action Spoke to patient / parent / legal guardian: Patient will return the call or ask for return call Did you use a PCP flex slot to schedule this appointment? N/A Reason for Outreach HCC or suspected condition Payer: Payor: KAILASH burrp! AND [employer] / Plan: KAILASH [employer] HMO / Product Type: HMO / Care Gap Reviewed:: Annual Wellness visit Controlling Blood Pressure Reminder: Reminder note to check Health Maintenance for items below Health Maintenance items due: BONE DENSITY Never done BP CONTROLLED (<130/80) due on 01/06/2021 LDL CHOLESTEROL due on 09/27/2022 ADVANCE DIRECTIVE DISCUSSION Never done Navigation Signature: Melissa Vital MA April 16, 2023 11:39 [facility]06-06-2023 History of Present illness Narrative* Melissa Vital MA - 04/16/2023 11:39 AM EDT POPULATION HEALTH NAVIGATION OUTREACH Action/FYI Spoke with patient. Patient states will call back later to schedule. Annual wellness/htn/HCC Declined my chart Will discuss AD with PCP Navigator Kailash amaya [facility] gap outreach F31.9 - Bipolar affective disorder, currently active (HCC) - [id number] Last Billed 08/31/2022 F33.41 - Recurrent major depression in partial remission (HCC) - [id number] Last Billed 08/31/2022 Patient Identified by Name and : YES, via phone Outreach Outcome/Action Spoke to patient / parent / legal guardian: Patient will return the call or ask for return call Did you use a PCP flex slot to schedule this appointment? N/A Reason for Outreach HCC or suspected condition Payer: Payor: KAILASH burrp! AND Guided Interventions / Plan: SINDI [employer] HMO / Product Type: HMO / Care Gap Reviewed:: Annual Wellness visit Controlling Blood Pressure Reminder: Reminder note to check Health Maintenance for items below Health Maintenance items due: BONE DENSITY Never done BP CONTROLLED (<130/80) due on 01/06/2021 LDL CHOLESTEROL due on 09/27/2022 ADVANCE DIRECTIVE DISCUSSION Never done Navigation Signature: Melissa Vital MA April 16, 2023 11:39 AM documented in this encounterMiami Valley Hospital05-23-2023 NoteHNO ID: [id number] Author: Doron Self DO Service: Vascular Surgery Author Type: Physician Type: Progress Notes Filed: 04/09/2023 5:57 PM Note Text: NAME: STEVEN KOENIG CLINIC NO: [id number] DATE OF SERVICE: 04/02/2023 Subjective: Elle is [...] concerns. Doron Self D.O. KB/089 Audio #: [id number] Date Dictated: 04/02/2023 08:47:00 Date Typed: 04/06/2023 05:15:49 Date Revised:[facility]05-23-2023 NoteHNO ID: [id number] Author: Doron Self, DO Service: ? Author Type: Physician Type: Progress Notes Filed: 04/02/2023 10:58 AM Note Text: This office note has been dictated. Doron Self, DOCHolzer [facility]04-19-2023 Miscellaneous Notes* Telephone Encounter - Doron Navarrete LPN - 02/27/2023 8:41 AM EDT Patient phones requesting refills as follows: Requested Prescriptions Pending Prescriptions Disp Refills predniSONE (DELTASONE) 10 mg tablet [Pharmacy Med Name: PREDNISONE 10 MG TABLET] 20 tablet 0 Sig: TAKE TWO DAILY FOR 5 DAYS THEN ONE DAILY FOR 10 DAYS Please review and advise. Doron Navarrete LPN documented in this encounterMiami Valley Hospital02-27-[address] Teague [facility] January 07, 2023 11:57am Note Date/Time January 07, 2023 11:47am [facility] Medical Records Department [address] [place] [address] Instructions for Home/Discharge Instructions 01/07/23 1143 MR#: [id number] Acct: [id number] Name: STEVEN KOENIG Rep #:[id number] : [...] DO; Dr. Ulises Hermosillo MD ~ Signed [facility] Work Phone: 1(379) 521-614202-26-[address] Sauer [facility] January 06, 2023 12:31pm Note Date/Time January 06, 2023 7:53am [facility] Medical Records Department [address] [place] [address] Progress Note - Hospitalist 01/06/23 0749 MR#: [id number] Acct: [id number] Name: STEVEN KOENIG Rep #:[id number] : 1955 67 From: Joel Sauer DO PCP: Dr. Ulises Hermosillo MD Status:A DM IN Location: [place] [address] Reason for Visit Reason for Visit: Diagnoses [...] 01/03/23 10:58 AG (Rec: 01/03/23 10:58 AG [id number]) Nutrition Malnutrition Evidence of Malnutrition Exists Yes [...] to discharge. Charges/Coding Visit Charges Inpatient E&M: 96005 Subs Hosp L2 01/06/23 1231 <Electronically signed by Joel Sauer DO> Cosigner Signature (if applicable): CC: ~ Signed [facility] Work Phone: 1(820) 827-134002-26-[address] Luque [facility] January 06, 2023 3:54am Note Date/Time January 06, 2023 3:54am [facility] Medical Records Department [address] [place] [address] Progress Note - Hospitalist 01/06/23352 MR#: [id number] Acct: [id number] Name: STEVEN KOENIG Rep #:[id number] : 1955 67 From: Linda Luque MD PCP: Dr. Ulises Hermosillo MD Status:A DM IN Location: [place] [address] Hospitalist Note Preliminary respiratory culture with strep pneumo, Rocephin added. 01/06/23353 <Electronically signed by Linda Luque MD> Cosigner Signature (if applicable): CC: ~ Signed [facility] Work Phone: 1(134) 139-928802-25-[address] Sauer [facility] January 05, 2023 3:15pm Note Date/Time January 05, 2023 8:27am [facility] Medical Records Department [address] [place] [address] Progress Note - Hospitalist 01/05/23 0825 MR#: [id number] Acct: [id number] Name: STEVEN KOENIG Rep #:[id number] : 1955 67 From: Joel Sauer DO PCP: Dr. Ulises Hermosillo MD Status:A DM IN Location: [place] [address] Reason for Visit Reason for Visit: Diagnoses [...] 01/03/23 10:58 AG (Rec: 01/03/23 10:58 AG [id number]) Nutrition Malnutrition Evidence of Malnutrition Exists Yes [...] the . Charges/Coding Visit Charges Inpatient E&M: 05712 Subs Hosp L2 01/05/23 9752 <Electronically signed by Joel Sauer DO> Cosigner Signature (if applicable): CC: ~ Signed [facility] Work Phone: 1(921) 870-367802-24-[address] Sauer [facility] January 04, 2023 4:33pm Note Date/Time January 04, 2023 8:14am [facility] Medical Records Department [address] [place] [address] Progress Note - Hospitalist 01/04/23811 MR#: [id number] Acct: [id number] Name: STEVEN KOENIG Rep #:[id number] : 1955 67 From: Joel Sauer DO PCP: Dr. Ulises Hermosillo MD Status:A DM IN Location: [place] [address] Reason for Visit Reason for Visit: Diagnoses [...] 01/03/23 10:58 AG (Rec: 01/03/23 10:58 AG [id number]) Nutrition Malnutrition Evidence of Malnutrition Exists Yes [...] SCDs, Lovenox. Charges/Coding Visit Charges Inpatient E&M: 89813 Subs Hosp L2 01/04/23 1524 <Electronically signed [...] Cosigner Signature (if applicable): cc: ~* Signed [facility] Work Phone: 1(746) 619-703202-23-[address] Sauer [facility] January 03, 2023 3:30pm Note Date/Time January 03, 2023 8:33am [facility] Medical Records Department [address] [place] [address] [place] [address] Progress Note - Hospitalist 01/03/23828 MR#: [id number] Acct: [id number] Name: STEVEN KOENIG Rep #:[id number] : 1955 67 From: Joel Sauer DO PCP: Dr. Ulises Hermosillo MD Status:A DM IN Location: [place] [address] Reason for Visit Reason for Visit: Diagnoses [...] Clarity Clear, Urine pH 6.0, Ur Specific [place] 1.005, Urine Protein Negative, Urine Glucose (UA) [...] % (Auto) 50.1, Lymph % (Auto) 37.2, [place] % (Auto) 9.6, Eos % (Auto) 1.4, [...] 92.4 H, Lymph % (Auto) 5.4 L, [place] % (Auto) 0.9, Eos % (Auto) 0.0, [...] 21:10 EST Reading Location ID and State: [facility] / [place] , Service support , Physical Exam Const [...] SCDs, Lovenox. Charges/Coding Visit Charges Inpatient E&M: 61456 Subs Hosp L2 01/03/23 1530 <Electronically signed by Joel Sauer DO> Cosigner Signature (if applicable): CC: ~ Signed [facility] Work Phone: 1(638) 710-805602-22-2023 History and physical note Author Dr. Luque [facility] January 02, 2023 9:37pm Note Date/Time January 02, 2023 9:19pm [facility] Medical Records Department [address] [place] [address] History & Physical Exam 01/02/232135 MR#: [id number] Acct: [id number] Name: STEVEN KOENIG Rep #:[id number] : [...] abuse, Tobacco use who presents to the [facility] ED on 01/02/23 with history of [...] Clarity Clear, Urine pH 6.0, Ur Specific [place] 1.005, Urine Protein Negative, Urine Glucose (UA) [...] % (Auto) 50.1, Lymph % (Auto) 37.2, [place] % (Auto) 9.6, Eos % (Auto) 1.4, [...] 21:10 EST Reading Location ID and State: [address] [place] [address] , Service support , Assessment & Plan Assessment/Plan (1) Chest pain: (2) COPD exacerbation: (3) Desire for detoxification: PLAN: Plan The patient is a 67 y/o F w/ PMHx: COPD, HTN, HLD, Depression and Anxiety, EtOH abuse, Tobacco use who presents to the [facility] ED on 01/02/23 with history of [...] 76 minutes. Charges/Coding Visit Charges Inpatient E&M: 94001 Init Hosp L3 01/02/232136 <Electronically signed by Linda Luque MD> Cosigner Signature (if applicable): CC: Dr. Linda Luque MD; Dr. Ulises Hermosillo MD~ Signed [facility] Work Phone: [phone]) 120-761402-22-[address] Koroma [facility] January 02, 2023 9:25pm Note Date/Time January 02, 2023 6:55pm [facility] Medical Records Department [address] [place] [address] Emergency Department Summary 01/02/23 MR#: [id number] Acct: [id number] Name: STEVEN KOENIG Rep #:[id number] : [...] % (Auto) 50.1 Lymph % (Auto) 37.2 [place] % (Auto) 9.6 Eos % (Auto) 1.4 [...] Clarity Clear Urine pH 6.0 Ur Specific [place] 1.005 Urine Protein Negative Urine Glucose (UA) [...] (Auto) Neut % (Auto) Lymph % (Auto) [place] % (Auto) Eos % (Auto) Baso % [...] Color Urine Clarity Urine pH Ur Specific [place] Urine Protein Urine Glucose (UA) Urine Ketones [...] 21:10 EST Reading Location ID and State: [facility] / [place] , Service support , Discharge Plan Dx/Rx/DC Orders Clinical Impression: Chronic obstructive lung disease, Alcohol intoxication, Desire for detoxification, Chest pain Disposition Disposition: Acute Care Hospital [facility] What to do if you have Problems For any increased pain, shortness of breath, bleeding, nausea or vomiting, chestpain, or any unexpected problems, contact your Primary Care Provider. Call [facility] ([phone]) or report to the closest Emergency Room. Call 911 if necessary. 01/02/232124 <Electronically signed by Miah Koroma MD> Cosigner Signature (if applicable): CC: Dr. Ulises Hermosillo MD ~ Signed [facility] Work Phone: 1(938) 521-264902-22-[address] Koroma [facility] January 02, 2023 9:25pm Note Date/Time January 02, 2023 6:55pm [facility] Medical Records Department [address] [place] [address] Emergency Department Summary 01/02/23 MR#: [id number] Acct: [id number] Name: STEVEN KOENIG Rep #:[id number] : [...] % (Auto) 50.1 Lymph % (Auto) 37.2 [place] % (Auto) 9.6 Eos % (Auto) 1.4 [...] Clarity Clear Urine pH 6.0 Ur Specific [place] 1.005 Urine Protein Negative Urine Glucose (UA) [...] (Auto) Neut % (Auto) Lymph % (Auto) [place] % (Auto) Eos % (Auto) Baso % [...] Color Urine Clarity Urine pH Ur Specific [place] Urine Protein Urine Glucose (UA) Urine Ketones [...] Chest pain Disposition Disposition: Acute Care Hospital [facility] What to do if you have Problems For any increased pain, shortness of breath, bleeding, nausea or vomiting, chestpain, or any unexpected problems, contact your Primary Care Provider. Call [facility] ([phone]) or report to the closest Emergency Room. Call 911 if necessary. 01/02/232124 <Electronically signed by Miah Koroma MD> Cosigner Signature (if applicable): CC: Dr. Ulises Hermosillo MD ~ Signed [facility] Work Phone: 1(242) 367-146502-21-2023 Miscellaneous Notes* Telephone Encounter - Diana KruseGIO jauregui - 01/01/2023 3:42 PM EST Behavioral Health Social Work Progress Note Patient identified for [facility] from: PCP Reason for referral: Resources Behavioral Health Resources: Substance abuse [facility] encounter type: Telephone Encounter Attempts to Outreach: 1 attempt Referral made: Psychology - External Psychology-External referral type: Alcohol/Drug Treatment Reason for external referral: Patient seeking senior care support, Patient needs services closer to home [...] look into for detoxification and substance abuse: [facility] [address] [place] [address] [address] [facility] [address] [place] [address] [address], [place] [id number] Patient states she may end up just going to [facility] if she can't find anywhere to go to assist as she really needs to detox. Advised to call these numbers and if additional assistance is needed to inform this SW. GIO Cardona January 01, 2023 documented in this encounterMiami [facility]02-21-2023 NoteHNO ID: [id number] Author: Oly Smith APRN.CNP Service: ? Author [...] Bipolar affective disorder, currently active ([facility]) 01/18/2016 [facility]ie [facility] Chronic bronchitis ([facility]) 07/26/2016 Closed skull fracture ([facility]) 1994 [facility], [facility] Coronary artery disease DDD (degenerative disc disease), cervical Endometriosis 2007 Essential hypertension 12/14/2015 GERD (gastroesophageal reflux disease) 03/13/2019 History of colon polyps History of gastric ulcer 12/14/2015 HLD (hyperlipidemia) Injury of left facial nerve 1994 PAD (peripheral artery disease) ([facility]) 09/28/2019 Recurrent major depression in partial remission ([facility]) 12/14/2015 S/P drug eluting coronary stent placement [...] TOTAL FACIAL NERVE DECOMPRESSION AND/REPAIR Left 1989 [facility] ALLERGIES Patient has no known allergies. MEDICATIONS traZODone (DESYREL) 100 mg tablet Take 2 tablets by mouth daily at bedtime. fqbgfrmedwt-scvmhccpu-wjmcjvov (TRELEGY ELLIPTA) 200-62.5-25 mcg inhalation powder Inhale [...] content not included)...[facility]02-21-2023 NoteHNO ID: [id number] Author: RT Aziza(R) Service: ? Author Type: Vocal Teacher Type: Progress Notes Filed: 01/01/2023 1:02 PM [...] BY: RT Aziza(R) January 01, 2023 12:51 [facility]02-21-2023 Instructions* Patient Instructions* Oly Smith APRN.CNP [...] will start drinking again. documented in this encounterMiami Valley Hospital02-21-2023 History of Present illness Narrative* Oly [...] Bipolar affective disorder, currently active ([facility]) 01/18/2016 Dr. Angie Jones, [facility] Chronic bronchitis ([facility]) 07/26/2016 Closed skull fracture ([facility]) 1994 [facility], [facility] Coronary artery disease DDD (degenerative disc disease), cervical Endometriosis 2007 Essential hypertension 12/14/2015 GERD (gastroesophageal reflux disease) 03/13/2019 History of colon polyps History of gastric ulcer 12/14/2015 HLD (hyperlipidemia) Injury of left facial nerve 1994 PAD (peripheral artery disease) ([facility]) 09/28/2019 Recurrent major depression in partial remission ([facility]) 12/14/2015 S/P drug eluting coronary stent placement [...] TOTAL FACIAL NERVE DECOMPRESSION &/REPAIR Left 1989 [facility] ALLERGIES Patient has no known allergies. MEDICATIONS traZODone (DESYREL) 100 mg tablet Take 2 tablets by mouth daily at bedtime. sbjwkykydhx-rriqwsjyx-tzbselmq (TRELEGY ELLIPTA) 200-62.5-25 mcg inhalation powder Inhale [...] like to discuss inpatient rehab facility with healthcare social worker, referral placed Close follow-up in [...] care. Oly Smith APRN.CNP documented in this encounterMiami Valley Hospital02-12-2023 Hospital Discharge instructions Patient Education 12/23/2022 [...] your ankles gets worse Dizziness or weakness 2509-2020 [employer]. [address] [place] [address]. All rights reserved. This information is not intended as a substitute for professional medical care. Always follow [facility] professional's instructions. 12/23/2022 16:02:38 Anxiety Reaction Anxiety [...] relieved by rest and mild pain reliever 7353-5638 [employer]. [address] [place] [address], [place] [address]. All rights reserved. This information is not intended as a substitute for professional medical care. Always follow yourhealthcare professional's instructions. Follow Up Care 12/23/2022 13:42:18 With:ULISES HERMOSILLO MD Address: [address] [place] [address]- When:2-4 days Comments:Return to ED if symptoms worsen [facility] Christin 02-12-2023 Note Discharge Instructions Thank you for allowing [facility] to assist you with your healthcare needs. [...] to ED if symptoms worsen Where: [address] [place] [address]- Allergies NKA Medications Please ask your [...] your ankles gets worse Dizziness or weakness 5064-7337 [employer]. [address] [place] [address], [place] [address]. All rights reserved. This information is not [...] relieved by rest and mild pain reliever 0896-1855 [employer]. [address] [place] [address]. All rights reserved. This information is not intended as a substitute for professional medical care. Always follow yourhealthcare professional's instructions. Additional Information VACCINATE! IT SAVES LIVES! Members of the community who have not yet received the COVID-19 vaccine and would like to receive it can visit one of [facility] vaccine clinics. There are many vaccine clinic locations within the [facility]. For locations and available times, please visit [email or web address]. It is important to note that some COVID mobile vaccine clinics are held outdoors and may be canceled in rainy orstormy conditions. To learn more about pediatric vaccinations (ages 5-11), we invite you to visit the [facility] webpage. [email or web address]-[email or web address]-[email or web address] stions.htmlTo learn more about the COVID-19 vaccine, we invite you to visit the [employer] website for a list of frequently asked questions. [email or web address] _[email or web address].pdf [facility] Patient Portal Access Instructions: Stay connected with your healthcare team and access your personal medical information anytime with the [facility] Patient Portal. If you would like a full copy of your medical records please contact the [facility] Medical Records Department Saturday through Saturday between 8a.m. and 4:30p.m. Please follow the directions below to access the portal: 1.Access the email account you provided upon registration to the [facility].2.Look for an invitation email from [facility].3.Open the email and access the invitation link: Accept Invitation to [facility]4.Fill in the required randle to create your account. Sign into [email or web address] Group with your username and password that you [...] you will allow to register on the [facility] Patient Portal for access to your information. You can also access the [facility] Patient Portal on the Clipboard larissa. Simply click on Health Records under ChatLingualta and then click on the Anthony logo. [...] Call your local pharmacy or go to http://bit.ly/3P9Rj6k to find one close to you.3.Make use of household items: Use cat litter or old coffee grounds to dispose medications if other options arenot available. Mix your drugs with these household products, seal them in an airtight container andthrow it into the garbage. Call [facility]: [phone] to be sure your drugs can be [...] aware that I should contact my doctor. 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 * Telephone Encounter - Aurea Fitzpatrick [facility] - 12/14/2022 11:36 AM EST Patient has [...] sent to the pharmacy. Call patient at [phone] (cell) [facility] documented in this encounterMiami Valley Hospital01-16-2023 NoteHNO ID: [id number] Author: Isauro Asher MD Service: ? Author Type: Physician Type: Progress Notes Filed: 11/26/2022 2:01 PM Note Text: . [facility] [place] Note Patient name: Steven Koenig PCP: Ulises Hermosillo MD CC: Hemoptysis HPI: Steven Koenig 67 year old female current heavy smoker, over 100 pack years with PMH significant for bipolar affective disorder, h/o alcohol abuse, GERD, PAD, HLD, CAD s/p stent, severe COPD (FEV1 0.83 L 36%), oxygen dependence, previously following in [facility] Recent admission at [facility] in [place] for AECOPD. CXR reported as normal. Discharged [...] No chest pain or current cough. DME: [facility] DATA: PFT 05/2022: Review of spirometry shows severe obstruction without significant improvement post bronchodilators and moderate reduction in diffusing capacity Labs: Laboratory testing at [facility], normal CBC and platelet count. Negative COVID and influenza Imaging / Diagnostic Studies: DATE OF EXAM: Jul 26 2022 4:27PM [facility] 0562 - CT LUNG [...] Bipolar affective disorder, currently active ([facility]) 01/18/2016 Dr[facility] Angie [facility] Chronic bronchitis ([facility]) 07/26/2016 Closed skull fracture ([facility]) 1994 [facility], [facility] Coronary artery disease DDD (degenerative disc disease), cervical Endometriosis 2007 Essential hypertension 12/14/2015 GERD (gastroesophageal reflux disease) 03/13/2019 History of colon polyps History of gastric ulcer 12/14/2015 HLD (hyperlipidemia) Injury of left facial nerve 1994 PAD (peripheral artery disease) ([facility]) 09/28/2019 Recurrent major depression in partial remission ([facility]) 12/14/2015 S/P drug eluting coronary stent placement 08/25/2021 LAD and Dg2 Spinal stenosis ALLERGIES No Known Allergies albuterol HFA (VENTOLIN HFA) 90 mcg/actuation inhaler Inhale 2 Puffs as instructed every 6 hours as needed for wheezing/shortness of breath. qakzgywiyal-sqtypuvlf-smmmnlqc (TRELEGY ELLIPTA) 200-62.5-25 mcg inhalation powder Inhale [...] original note were not included. . [facility] [place] Note Patient name: Steven Koenig PCP: Ulises Hermosillo MD CC: Hemoptysis HPI: Steven Koenig 67 year old female current heavy smoker, over 100 pack years with PMH significant for bipolar affective disorder, h/o alcohol abuse, GERD, PAD, HLD, CAD s/p stent, severe COPD (FEV1 0.83 L 36%), oxygen dependence, previously following in [facility]. Recent admission at [facility] in [place] for AECOPD. CXR reported as normal. Discharged [...] No chest pain or current cough. DME: [facility] DATA: PFT 05/2022: Review of spirometry shows severe obstruction without significant improvement post bronchodilators and moderate reduction in diffusing capacity Labs: Laboratory testing at [facility], normal CBC and platelet count. Negative COVID and influenza Imaging / Diagnostic Studies: DATE OF EXAM: Jul 26 2022 4:27PM [facility] 0562 - CT LUNG [...] Alcohol use disorder 01/18/2016 Dr. Angie Jones, [facility] Anxiety 12/14/2015 Bipolar affective disorder, currently active ([facility]) 01/18/2016 Dr[facility] Angie [facility] Chronic bronchitis ([facility]) 07/26/2016 Closed skull fracture ([facility]) 1994 [facility], [facility] Coronary artery disease DDD (degenerative disc disease), cervical Endometriosis 2007 Essential hypertension 12/14/2015 GERD (gastroesophageal reflux disease) 03/13/2019 History of colon polyps History of gastric ulcer 12/14/2015 HLD (hyperlipidemia) Injury of left facial nerve 1994 PAD (peripheral artery disease) ([facility]) 09/28/2019 Recurrent major depression in partial remission ([facility]) 12/14/2015 S/P drug eluting coronary stent placement 08/25/2021 LAD and Dg2 Spinal stenosis ALLERGIES No Known Allergies albuterol HFA (VENTOLIN HFA) 90 mcg/actuation inhaler Inhale 2 Puffs as instructed every 6 hours asneeded for wheezing/shortness of breath. bwaafweuaqi-jbhigkdfh-byncitni (TRELEGY ELLIPTA) 200-62.5-25 mcg inhalation powder Inhale [...] TOTAL FACIAL NERVE DECOMPRESSION &/REPAIR Left 1989 [facility] PMH, Social history, family history and [...] cessation strongly encouraged Isauro Asher MD [facility] documented in this encounterMiami Valley Hospital12-16-2022 Hospital Discharge instructions Patient Education 10/26/2022 [...] your ankles gets worse Dizziness or weakness 3995-1513 [employer]. [address] [place] [address]. All rights reserved. This information is not intended as a substitute for professional medical care. Always follow yourhealthcare professional's instructions. Follow Up Care 10/26/2022 16:18:34 With:Go to emergency room if symptoms worsen Address:Unknown When:2-4 days With:ULISES HERMOSILLO MD Address: [address] [place] [address]- When:2-4 days [facility] 12-16-2022 Note Discharge Instructions Thank you for allowing [facility] to assist you with your healthcare needs. [...] MD When Within 2-4 days Where: [address] [place] [address]- Allergies NKA Medications Please ask [...] may report side effects to FDA at 2-504-BQM-3200. What other drugs will affect budesonide and formoterol? Sometimes it is not safe to use certain medications at the same time. Some drugs can affect your blood levels of other drugs you take, which may increase side effects or make the medications less effective. Many drugs can affect budesonide and formoterol. This includes prescription and uhhn-beo-vqowkaq medicines, vitamins, and herbal products. Not all [...] to ensure that the information provided by [employer]. ('[employer]') is accurate, up-to-date, and complete, but no guarantee is made to that effect. Drug information contained herein may be time sensitive. [employer] information has been compiled for use by healthcare practitioners and consumers in the [place] and therefore [employer] does not warrant that uses outside of the [place] are appropriate, unless specifically indicated otherwise. [employer] drug information does not endorse drugs, diagnose patients or recommend therapy. [employer] drug information isan informational resource designed to [...] effective or appropriate for any given patient. [employer] does not assume any responsibility for any aspect of healthcare administered with the aid of information [employer] provides. The information contained herein is not intended to cover all possible uses, directions, precautions, warnings, drug interactions, allergic reactions, or adverse effects. If you have questions about the drugs you are taking, check with your doctor, nurse or pharmacist. Copyright 4600-8001 [employer]. Version: 9.02. Revision Date: 07/08/2019. prednisone (PRED [...] may report side effects to FDA at 9-285-RMN-5533. What other drugs will affect prednisone? Sometimes [...] may affect prednisone. This includes prescription and wkpc-iei-rmvedaf medicines, vitamins, and herbal products. Not all [...] to ensure that the information provided by [employer]') is accurate, up-to-date, and complete, but no guarantee is made to that effect. Drug information contained herein may be time sensitive. [employer] information has been compiled for use by healthcare practitioners and consumers in the [place] and therefore [employer] does not warrant that uses outside of the [place] are appropriate, unless specifically indicated otherwise. [employer] drug information does not endorse drugs, diagnose patients or recommend therapy. [employer] drug information isan informational resource designed to [...] effective or appropriate for any given patient. [employer] does not assume any responsibility for any aspect of healthcare administered with the aid of information [employer] provides. The information contained herein is not intended to cover all possible uses, directions, precautions, warnings, drug interactions, allergic reactions, or adverse effects. If you have questions about the drugs you are taking, check with your doctor, nurse or pharmacist. Copyright 2149-9140 [employer]. Version: 10.. Revision Date: 02/05/2019. doxycycline (oral/injection) [...] or life-threatening conditions such as anthrax or [place] spotted fever. The benefit of treating a [...] may report side effects to FDA at 9-284-BDJ-6017. What other drugs will affect doxycycline? Sometimes it is not safe to use certain medications at the same time. Some drugs can affect your blood levels of other drugs you take, which may increase side effects or make the medications less effective. Other drugs may affect doxycycline, including prescription and nagz-ypn-ceqhwft medicines, vitamins, and herbal products. Tell your [...] to ensure that the information provided by [employer]') is accurate, up-to-date, and complete, but no guarantee is made to that effect. Drug information contained herein may be time sensitive. [employer] information has been compiled for use by healthcare practitioners and consumers in the [place] and therefore [employer] does not warrant that uses outside of the [place] are appropriate, unless specifically indicated otherwise. [employer] drug information does not endorse drugs, diagnose patients or recommend therapy. [employer] drug information isan informational resource designed to [...] effective or appropriate for any given patient. [employer] does not assume any responsibility for any aspect of healthcare administered with the aid of information [employer] provides. The information contained herein is not intended to cover all possible uses, directions, precautions, warnings, drug interactions, allergic reactions, or adverse effects. If you have questions about the drugs you are taking, check with your doctor, nurse or pharmacist. Copyright 5342-8552 [employer]. Version: 21.04. Revision Date: 09/14/2020. Education Materials [...] your ankles gets worse Dizziness or weakness 3461-8190 [employer]. [address] [place] [address]. All rights reserved. This information is not intended as a substitute for professional medical care. Always follow yourhealthcare professional's instructions. Additional Information VACCINATE! IT SAVES LIVES! Members of the community who have not yet received the COVID-19 vaccine and would like to receive it can visit one of [facility] vaccine clinics. There are many vaccine clinic locations within the [facility]. For locations and available times, please visit [email or web address]. It is important to note that some COVID mobile vaccine clinics are held outdoors and may be canceled in rainy orstormy conditions. To learn more about pediatric vaccinations (ages 5-11), we invite you to visit the [facility] webpage. [email or web address]/[email or web address]-Skgrswuhhmf-Wfkegnlcew-Tmlws-Pyg stions.htmlTo learn more about the COVID-19 vaccine, we invite you to visit the [facility] website for a list of frequently asked questions. [email or web address] _[email or web address] [facility] Patient Portal Access Instructions: Stay connected with your healthcare team and access your personal medical information anytime with the [facility] Patient Portal. If you would like a full copy of your medical records please contact the [facility] Medical Records Department Saturday through Saturday between 8a.m. and 4:30p.m. Please follow the directions below to access the portal: 1.Access the email account you provided upon registration to the [facility].2.Look for an invitation email from [facility].3.Open the email and access the invitation link: Accept Invitation to [facility]4.Fill in the required randle to create your account. Sign into [email or web address] Group with your username and password that you [...] you will allow to register on the [facility] [facility] Patient Portal for access to your information. You can also access the [facility] Patient Portal on the Clipboard larissa. Simply click on Health Records under [employer] and then click on the [facility] logo. [...] Call your local pharmacy or go to [email or web address] to find one close to you.3.Make use of household items: Use cat litter or old coffee grounds to dispose medications if other options arenot available. Mix your drugs with these household products, seal them in an airtight container andthrow it into the garbage. Call [facility]: [phone] to be sure your drugs can be [...] aware that I should contact my doctor. 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 [facility]12-16-2022 Note ORIGINAL EXAMINATION: ONE XRAY VIEW [...] 10/26/2022 7:06:29 PM Ordering Provider: BRIAN TRINIDAD [facility]12-16-2022 Note ORIGINAL EXAMINATION: ONE XRAY VIEW [...] Sign Date: 10/26/2022 7:06:29 PM Ordering Provider: [facility]12-16-2022 SARS-CoV-2 (COVID-19) RNA IVANA+probe Ql (Nph)Negative *NA* (10/26/22 5:52 PM)AO Auto Urine [id number] History of Present illness Narrative* Dorno Self DO - 10/02/2022 10:10 AM EST This office note has been dictated. Doron Self DO documented in this encounterMiami [facility] Hospital11-14-2022 Miscellaneous Notes* Telephone Encounter - Linda [...] Thank you! Linda Olea documented in this encounterMiami Valley Hospital11-09-2022 Miscellaneous Notes* Telephone Encounter - Nevin Horne Pss - 09/19/2022 10:02 AM EST Patient called to reschedule damir lab testing from 07/13. Unable to schedule, stated 09/11. Please place new orders and advise patient for scheduling. documented in this encounterMiami Valley Hospital10-26-2022 History of Present illness Narrative* Ulises [...] Allergies Pad (Peripheral Artery Disease) ([facility]) Anxiety and Depression Prediabetes Chest Pain Other Chest Pain Stenosis of Carotid Artery Mixed Hyperlipidemia Abnormal Stress Test Dyspnea On Exertion Coronary Artery Disease Involving Hoopa Coronary Artery of Hoopa Heart Without Angina Pectoris Lung Nodule Current [...] 2 tablets by mouth daily at bedtime. fhosdzkflcl-vivurnetz-vbrotugu (TRELEGY ELLIPTA) 200-62.5-25 mcg inhalation powder Inhale [...] control Ulises Hermosillo MD documented in this encounterMiami Valley Hospital10-26-2022 Miscellaneous Notes* Telephone Encounter - Nena [...] No difficulty with drinking. Protocols used: Mouth Ktca-VMKSH-QK documented in this encounterMiami Valley Hospital10-21-2022 Instructions* Patient Instructions* Oly Smith APRN.CNP - 08/31/2022 1:46 PM EDT Increase venlafaxine to 225 mg, take 150 mg cap with 75 mg cap to equal 225 mg. Take lorazepam as needed. Please use sparingly, no refills. 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 She on Plavix and Imdur. She stopped taking ASA because she takes Excedrin a lot and thought it was the same thing. 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 Last appointment in May. Symbicort was [...] Bipolar affective disorder, currently active ([facility]) 01/18/2016 Dr. Angie [facility], [facility] Chronic bronchitis ([facility]) 07/26/2016 Closed skull fracture ([facility]) 1994 [facility], [facility] Coronary artery disease DDD (degenerative disc disease), cervical Endometriosis 2007 Essential hypertension 12/14/2015 GERD (gastroesophageal reflux disease) 03/13/2019 History of colon polyps History of gastric ulcer 12/14/2015 HLD (hyperlipidemia) Injury of left facial nerve 1994 PAD (peripheral artery disease) ([facility]) 09/28/2019 Recurrent major depression in partial remission ([facility]) 12/14/2015 S/P drug eluting coronary stent placement [...] TOTAL FACIAL NERVE DECOMPRESSION &/REPAIR Left 1989 [facility] ALLERGIES Patient has no known allergies. MEDICATIONS traZODone (DESYREL) 100 mg tablet^Take 2 tablets by mouth daily at bedtime.^Disp: 60 tablet^Rfl: 5 mhwvqqjxtpe-gcwzqmpjx-nkqwipgz (TRELEGY ELLIPTA) 200-62.5-25 mcg inhalation powder^Inhale 1 [...] suspiciousactivity was identified. 08/31/2022 by Oly Smith APRN.AIR POLLUTION INSPECTOR 2. Allergic conjunctivitis of both eyes - [...] CT in July. Follow-up with lung cancer receiving specialist as advised 10. Screening for osteoporosis - ICD9: V82.81, ICD10: Z13.820 - DXA-AXIAL SKELETON 11. Asymptomatic menopause - ICD9: V49.81, ICD10: Z78.0 - DXA-AXIAL SKELETON Prescription instructions reviewed with patient as applicable. Potential red flag symptoms discussed with the patient. Reviewed appropriate action plan to take if red flag symptoms occur. Patient agreeable to treatment plan. Oly Smith APRN.CNP documented in this encounterMiami Valley Hospital10-06-2022 Miscellaneous Notes* Telephone Encounter - Ulises [...] to attend he can contact them at [phone] Option 3 to arrange. Nena Dozier RN documented in this encounterMiami Valley Hospital09-22-2022 Miscellaneous Notes* Telephone Encounter - Nevin Smith - 08/02/2022 12:39 PM EDT Please call patient to schedule testing prior to appt on 08/14/2022 Thank you documented in this encounterMiami Valley Hospital09-20-2022 Instructions* Patient Instructions* Karly Garcia APRN.CNP [...] please feel free to contact me at [phone]. Karly Garcia APRN.CNP documented in this encounterMiami Valley Hospital09-20-2022 History of Present illness Narrative* Karly [...] daily. Per her last OV with her collaborative physician, Symbicort was advised to be discontinued as Trelegy was added on. Activity: Does light house work but has to stop in between chores to catch her breath. Gets SOB with showering or with walking from her bedroom to her kitchen. The patient does not require assistancewith normal activities of daily living. Modified Medical Research [place] Dyspnea Scale (MMRC) I stop for breath [...] Bipolar affective disorder, currently active ([facility]) 01/[facility]2016 [facility] Chronic bronchitis ([facility]) 07/26/2016 Closed skull fracture ([facility]) 1994 [facility] Coronary artery disease DDD (degenerative disc disease), cervical Endometriosis 2007 Essential hypertension 12/14/2015 GERD (gastroesophageal reflux disease) 03/13/2019 History of colon polyps History of gastric ulcer 12/14/2015 HLD (hyperlipidemia) Injury of left facial nerve 1994 PAD (peripheral artery disease) ([facility]) 09/28/2019 Recurrent major depression in partial remission ([facility]) 12/14/2015 S/P drug eluting coronary stent placement [...] TOTAL FACIAL NERVE DECOMPRESSION &/REPAIR Left 1989 [facility] Family Hx: FAMILY HISTORY Problem Relation [...] which included preparing to see the patient, dujp-zr-aitz patient care, completing clinical documentation, obtaining and/or reviewing separately obtained history, performing a medically appropriate examination, counseling and educating the pat ient/family/caregiver, and communicating results to the patient/family/caregiver. Associated attestation - Nicole Kenny APRN.CNP - 07/31/2022 4:53 PM EDT TEACHING PROVIDER (Physician/PA/SENIOR WINDOWS SYSTEMS ENGINEER) NOTE OF PERSONAL INVOLVEMENT IN CARE: I have personally seen and examined the patient and performed the medical decision-making components. I have reviewed the Karly Loya 's documentation and verified the findings in the note as written. Any additions or changes are noted in bold/italics. Signature: Nicole Kenny APRN.CNP Date: 07/31/2022 Time: 4:53 PM documented in this encounterMiami Valley Hospital09-15-2022 NoteHNO ID: [id number] Author: YASSINE Hatch Service: Radiology Author Type: [...] Hatch July 26, 2022 4:24 PMUniversity Hospitals Elyria Medical [id number] Miscellaneous Notes* Telephone Encounter - Saranya Link [...] daily at bedtime. Authorizing Provider: DAT RODNEY sdpmgcguchj-misylvrvp-czpuxfsv (TRELEGY ELLIPTA) 200-62.5-25 mcg inhalation powder 60 [...] pcp 05/11/22. Next appt is 08/13/22 with PLUG DRILL OPERATOR. * Telephone Encounter - Arlen Avalos Pss - 07/20/2022 11:25 AM EDT Patient has been identified by Yesname and date of : Requested Prescriptions Pending Prescriptions Disp Refills traZODone (DESYREL) 100 mg tablet 60 tablet 0 Sig: Take 2 tablets by mouth daily at bedtime. jkimvloveyx-klthivhtr-cczfctlw (TRELEGY ELLIPTA) 200-62.5-25 mcg inhalation powder 60 Each 11 Sig: Inhale 1 Puff as instructed once daily. venlafaxine ER (EFFEXOR XR) 150 mg 24 hr capsule 90 capsule 0 Sig: Take 1 capsule by mouth once daily. RX INSTRUCTIONS: Patient aware RX will be sent to pharmacy. No need to notify patient. Arlen Avalos Pss documented in this encounterMiami Valley Hospital09-06-2022 Miscellaneous Notes* Telephone Encounter - Hyacinth Austin - 07/17/2022 2:02 PM EDT Left message to advise appointment with Dr Self has been moved up to August 4ht @ 10:15 in the [place] . * Telephone Encounter - Maritza De Los Santos - 07/13/2022 3:52 PM EDT Patient called back in regard to message left for her. Informed her that she needs to complete testing first before she has appt with Dr. Self. She verbalized understanding. I informed her of when her testing is on 07/26/2022 in [place] and rescheduled her appt with Dr. Self in [place] on 09/11/2022 since that was the soonest [...] her right leg. The soonest testing appt [place] has available is 07/25/22. Patient is tentatively scheduled on thatday. Appt needs to be rescheduled. Discussed with patient she could come for the visit on 07/17/22 howeverthe testing is necessary to see if there is anything new going on since her last scan. Left patient a voicemail with this information, advised she could call the office for other appt options in [place]. documented in this encounterMiami Valley Hospital08-29-2022 Procedure note* ASHLEY Cage - 07/09/2022 [...] walker used for stability. documented in this encounterMiami Valley Hospital08-29-2022 History of Present illness Narrative* ASHLEY Cage - 07/09/2022 3:29 PM EDT PULM FUNCTION SMARTBLOCK: Provider: Margaret Kasper MD Assisting Tech: ASHLEY Cage Oximetry - Ambulation: 1 documented in this encounterMiami Valley Hospital08-26-2022 Miscellaneous Notes* Telephone Encounter - Margaret Kasper MD - 07/06/2022 11:29 AM EDT Order for oximetry documented in this encounterMiami Valley Hospital08-04-2022 Miscellaneous Notes* Telephone Encounter - Irena [...] notify patient. Cailin Austin documented in this encounterMiami Valley Hospital07-27-2022 History of Present illness Narrative* Margaret [...] asthma since teenage, COPD, recently discharged from [facility] in [place] where she was treated for COPD exacerbation [...] and relieved by inhalers Recent hospital admissions: [facility] in [place] Medications: Symbicort, albuterol Most recent Radiology Most [...] No significant exposure Silica: No significant exposure [place]: No significant exposure Mold: No significant exposure Hot tub: No significant exposure Fumes: No significant exposure Metal dust: No significant exposure Beryllium: No significant exposure Dust: No significant exposure Medications: No relevant exposure for interstitial lung diseases PAST MEDICAL HISTORY Diagnosis Date Acute pancreatitis 2010 [facility] Alcohol use disorder 01/18/2016 [facility] Anxiety 12/14/2015 Bipolar affective disorder, currently active ([facility]) 01/18/2016 [facility] Chronic bronchitis ([facility]) 07/26/2016 Closed skull fracture ([facility]) 1994 [facility], [facility] Coronary artery disease DDD (degenerative disc disease), cervical Endometriosis 2007 Essential hypertension 12/14/2015 GERD (gastroesophageal reflux disease) 03/13/2019 History of colon polyps History of gastric ulcer 12/14/2015 HLD (hyperlipidemia) Injury of left facial nerve 1994 PAD (peripheral artery disease) ([facility]) 09/28/2019 Recurrent major depression in partial remission ([facility]) 12/14/2015 S/P drug eluting coronary stent placement [...] TOTAL FACIAL NERVE DECOMPRESSION &/REPAIR Left 1989 [facility] FAMILY HISTORY Problem Relation Age of [...] Take 1 tablet by mouth once daily. yqgtrtfwgfz-qthfoinjf-ljidldqj (TRELEGY ELLIPTA) 200-62.5-25 mcg inhalation powder Inhale [...] 400 QTC Calculation (Bazett) 450 Calculated P [place] 82 Calculated R [place] 65 Calculated T [place] 69 Impression NORMAL SINUS RHYTHM NORMAL ECG Confirmed by DYLAN ROTH M.D. ([id number]) on 10/23/2021 11:14:32 AM Recent Results (from the past 50312 hour(s)) ECHO Collection Time: 05/21/22 3:26 PM [...] disease counseling. Margaret Kasper MD Staff, Respiratory [place] [facility] CC: MD Zoya Jameson Maria Sheyne, * documented in this encounterMiami Valley Hospital07-27-2022 History of Present illness Narrative* Paco Miguel RRT - 06/06/2022 9:47 AM EDT PULM FUNCTION SMARTBLOCK: Provider: Margaret Kasper MD Assisting Tech: Paco Miguel RRT Spirometry w/BD: 1 DLCO: 1 documented in this encounterMiami Valley Hospital07-25-2022 Miscellaneous Notes* Telephone Encounter - Ranulfo Blackman Ma - 06/04/2022 12:50 PM EDT New order printed and faxed. Ranulfo Blackman Ma * Telephone Encounter - Oly Smith APRN.CNP - 06/04/2022 11:45 AM EDT See phone note from 05/31, this was faxed and then re faxed on 06/04 Oly Smith APRN.CNP * Telephone Encounter - Jaylyn Caceres RN - 06/04/2022 10:07 AM EDT [facility] has received several orders for the Aerochamber spacer, electronically signed by Journeyman Meat Cutter. States she cannot accept this. Needs an actual prescription with name, addressand signature of provider. Please send actual prescription. Fax number [phone]. documented in this encounterMiami Valley Hospital07-22-2022 Miscellaneous Notes* Telephone Encounter - Ranulfo [...] be sent for inhaler spacer? Pharmacy is [facility]. See Message below in regards to portable oxygen tank. Please review and advise, Christina Franco RN * Telephone Encounter - Christina Franco RN - 05/31/2022 11:07 AM EDT Patient calls and is asking if provider can write orders for patient to have a smaller portable oxygen tank so it is easier for her to go places. She gets current supplies from [facility]. Please review and advise, Christina Franco RN documented in this encounterMiami Valley Hospital07-20-2022 Miscellaneous Notes* Addendum Note - Nicole Kenny APRN.LINDA - 05/30/2022 9:06 AM EDT Addended by: NICOLE KENNY on: 05/30/2022 09:06 AM Modules accepted: Orders documented in this encounterMiami Valley Hospital07-19-2022 Miscellaneous Notes* Telephone Encounter - Tracy Alan LPN - 05/29/2022 7:04 AM EDT Patient's request for medication is as follows: Pending Prescriptions Disp Refills AMLODIPINE 10 MG TABLET 90 tablet 3 Sig: TAKE 1 TABLET BY MOUTH EVERY DAY BECKY: Yes Last seen 12/04/2021 in [place]. Follow up scheduled for 11/19/2022. Prescription(s) as above. Please process accordingly. Trayc Alan LPN documented in this encounterMiami Valley Hospital07-15-2022 Miscellaneous Notes* Telephone Encounter - Ranulfo [...] to the pharmacy. Please call patient at: [phone]. Telma Austin documented in this encounterMiami Valley Hospital07-14-2022 Miscellaneous Notes* Telephone Encounter - Manuela [...] valve disease. Thank you! documented in this encounterMiami Valley Hospital07-12-2022 Miscellaneous Notes* Result QuickNote - Tracy Ramires APRN.CNP - 05/22/2022 7:41 AM EDT Please call patient and notify her echocardiogram reveals stable LV function and no significant valve disease. Thank you! documented in this encounterMiami Valley Hospital07-01-2022 Instructions* Patient Instructions* Ulises Hermosillo MD - 05/11/2022 2:14 PM EDT FASTING BLOOD WORK IN 3 MONTHS. documented in this encounterMiami Valley Hospital07-01-2022 History of Present illness Narrative* Ulises [...] Major Depression in Partial Remission ([facility]) Bipolar Affective Disorder, Currently Active ([facility]) History of Alcohol Abuse Chronic bronchitis ([facility]) Spinal Stenosis, Lumbar Region Without Neurogenic Claudication Radiculopathy, Lumbar Region Smoker Gerd (Gastroesophageal Reflux Disease) Seasonal Allergies Pad (Peripheral Artery Disease) ([facility]) Anxiety and Depression Prediabetes Chest Pain Other Chest Pain Stenosis of Carotid Artery Mixed Hyperlipidemia Abnormal Stress Test Dyspnea On Exertion Coronary Artery Disease Involving Hoopa Coronary Artery of [place] Heart Without Angina Pectoris Social History Tobacco [...] BASIC Ulises Hermosillo MD documented in this encounterMiami Valley Hospital06-27-2022 Miscellaneous Notes* Telephone Encounter - Ranulfo [...] notify patient. Luci Austin documented in this encounterMiami Valley Hospital06-25-2022 Hospital Discharge instructions Patient Education 05/05/2022 [...] Follow these instructions at home: Medicines Take xyxc-vwc-bqhwmnl and prescription medicines (inhaled or pills) only [...] 08/07/2006 Document Revised: 10/10/2018 Document Reviewed: 12/02/2017 [email or web address] Patient Education 2020 incred[employer]ue. Follow Up Care 05/02/2022 09:30:28 With:[facility] Address: When: Unknown Comments:[facility] will provide your home oxygen and equipment. Call them when you arrive home and they will deliver your oxygen concentrator to you. Their number is [phone]. With:ULISES HERMOSILLO MD Address: [address] [place] [address]- When:05/11/2022 13:40:00 Comments:The appointment on 05/07 has [...] (Nph) Negative (05/02/22 4:25 AM)AO Auto Urine [id number] Instructions* Patient Instructions* Tracy Ramires APRN.AIR POLLUTION INSPECTOR - 04/30/2022 3:57 PM EDT Images from [...] the health of your heart. Developed by [employer]. Published by [employer]. Copyright 2014 [employer] and/or one of its subsidiaries. All rights reserved. documented in this encounterMiami Valley Hospital06-20-2022 History of Present illness Narrative* Tracy [...] Bipolar affective disorder, currently active ([facility]) 01/18/2016 [facility] Chronic bronchitis ([facility]) 07/26/2016 Closed skull fracture ([facility]) 1994 [facility], [facility] Coronary artery disease DDD (degenerative disc disease), cervical Endometriosis 2007 Essential hypertension 12/14/2015 GERD (gastroesophageal reflux disease) 03/13/2019 History of colon polyps History of gastric ulcer 12/14/2015 HLD (hyperlipidemia) Injury of left facial nerve 1994 PAD (peripheral artery disease) ([facility]) 09/28/2019 Recurrent major depression in partial remission ([facility]) 12/14/2015 S/P drug eluting coronary stent placement [...] TOTAL FACIAL NERVE DECOMPRESSION &/REPAIR Left 1989 [facility] FAMILY HISTORY Problem Relation Age of [...] injection (DEFINITY) INTRAVENOUS DIRECTED PRN Tracy Ramires, SENIOR WINDOWS SYSTEMS ENGINEER.AIR POLLUTION INSPECTOR sodium chloride 0.9 % (flush) 10 mL (BD POSIFLUSH) 10 mL INTRAVENOUS DIRECTED PRN Tracy E Sima, SENIOR WINDOWS SYSTEMS ENGINEER.AIR POLLUTION INSPECTOR perflutren lipid microspheres 1.3 mL in NaCl (PF) 0.9% 10 mL injection (DEFINITY) INTRAVENOUS DIRECTED PRN Tracy E Sima, SENIOR WINDOWS SYSTEMS ENGINEER.AIR POLLUTION INSPECTOR sodium chloride 0.9 % (flush) 10 mL (BD POSIFLUSH) 10 mL INTRAVENOUS DIRECTED PRN Tracy E Sima, SENIOR WINDOWS SYSTEMS ENGINEER.AIR POLLUTION INSPECTOR Review of Systems Constitutional: Negative for chills, [...] LAD portion of the stent 3.7mm, with adventist of blood flow, no residual stenosis. Assessment [...] 30, 2022, 3:36 PM documented in this encounterMiami Valley Hospital05-24-2022 Miscellaneous Notes* Telephone Encounter - Jasmine Ramos LPN - 04/03/2022 10:00 AM EDT Last see pcp PLUG DRILL OPERATOR 02/14/21. Next appt with PLUG DRILL OPERATOR 05/04/22. * Telephone Encounter - Cailin Austin [...] notify patient. Cailin Austin documented in this encounterMiami Valley Hospital05-03-2022 Instructions* Patient Instructions* Nicole Kenny APRN.CNP [...] candy are also excellent oral substitutes. Phone [phone] ([phone]) as additional resource. CT Lung Screen Results [...] to endocrinology. Others Lung Cancer Screening hotline: [phone] Lung Cancer Screening [phone] Billing Questions: or [email or web address] Lung Cancer Screening Team: Linda Meyer CNP; Crystal Kenny CNP; Eri Cheung CNP; Agata Cruz CNP, JAYMIE SrivastavaC: [phone] Bouchra Cuenca PA-C documented in this encounterMiami Valley Hospital05-03-2022 History of Present illness Narrative* Nicole [...] 50% of waking hrs. Modified Medical Research [place] Dyspnea Scale (MMRC) On level ground I [...] Bipolar affective disorder, currently active ([facility]) 01/18/2016 Dr. Angie Jones, [facility] Chronic bronchitis ([facility]) 07/26/2016 Closed skull fracture ([facility]) 1994 [facility], [facility] Coronary artery disease DDD (degenerative disc disease), cervical Endometriosis 2007 Essential hypertension 12/14/2015 GERD (gastroesophageal reflux disease) 03/13/2019 History of colon polyps History of gastric ulcer 12/14/2015 HLD (hyperlipidemia) Injury of left facial nerve 1994 PAD (peripheral artery disease) ([facility]) 09/28/2019 Recurrent major depression in partial remission ([facility]) 12/14/2015 S/P drug eluting coronary stent placement [...] TOTAL FACIAL NERVE DECOMPRESSION &/REPAIR Left 1989 [facility] FAMILY HISTORY Problem Relation Age of [...] Date(s) Administered COVID-19 vaccine, age 12+ yr ([facility]) 11/21/2021 Influenza Seasonal Inj Quad Age 6 Mo - 64 Yrs 01/06/2020 Pneumovax 04/21/2018 influenza, high-dose, quadrivalent vaccine (FLUZONE HIGH DOSE QUADRIVALENT) 08/23/2020 Colonoscopy: 04/03/2017 Mammogram: DATA REVIEW I have directly visualized the testing documented: Prior Imaging: CT: Yes 2020 Abnormal Done at [facility] 01/2021 CXR: Yes 2020 Abnormal Nonspecific [...] risk for lung cancer: 23.1 % Source: [employer] [email or web address] I have determined that the patient is [...] candy are also excellent oral substitutes. Phone [phone] ([phone]) as additional resource. The medical conditions adversely [...] which included preparing to see the patient, reob-jg-rjnr patient care, completing clinical documentation, obtaining and/or reviewing separately obtained history, performing a medically appropriate examination, counseling and educating the pat ient/family/caregiver, ordering medications, tests, or procedures and communicating results to the patient/family/caregiver. Nicole Kenny APRN.LINDA NPI #: March 13, 2022 2:10 PM documented in this encounterMiami Valley Hospital04-21-2022 Miscellaneous Notes* Telephone Encounter - Joyce [...] notify patient. Isadora Anglin documented in this encounterMiami Valley Hospital11-30-2021 NoteHNO ID: [id number] Author: RT Hiral(R) Service: Radiology Author Type: [...] RT(R) October 10, 2021 11:15 AMUniversity Hospitals Elyria Medical CenterSckngqbj26-38-2002 NoteHNO ID: [id number] Author: Tracy Ramires APRN.AIR POLLUTION INSPECTOR Service: ? Author Type: Nurse Practitioner Type: [...] Bipolar affective disorder, currently active ([facility]) 01/18/2016 Dr. Angie [facility] - Chronic bronchitis ([facility]) 07/26/2016 - Closed skull fracture ([facility]) 1994 [facility], [facility] - Coronary artery disease - DDD (degenerative disc disease), cervical - Endometriosis 2007 - Essential hypertension 12/14/2015 - GERD (gastroesophageal reflux disease) 03/13/2019 - History of colon polyps - History of gastric ulcer 12/14/2015 - HLD (hyperlipidemia) - Injury of left facial nerve 1994 - PAD (peripheral artery disease) ([facility]) 09/28/2019 - Recurrent major depression in partial remission ([facility]) 12/14/2015 - S/P drug eluting coronary stent placement 08/25/2021 LAD and Dg2 - Spinal stenosis PAST SURGICAL HISTORY Procedure Laterality Date - APPENDECTOMY 1979 - COLONOSCOP W/ OR W/O [facility] SPEC 2010 Colonoscopy - COLONOSCOPY 04/03/2017 diverticulosis- repeat 10 years - [place]OM[place] FACIAL NERVE,TOTAL Left 1989 [facility] - EGD 04/03/2017 Gastritis, duodenitis, GERD [...] not included)...[facility]10-04-2021 Note HNO ID: [id number] Author: MAISHA Alicea Service: Radiology Author Type: Clinical Vocal Teacher Type: Progress Notes Filed: 08/14/2021 4:04 PM [...] POST EXAM PIV STATUS: Discontinued PROCEDURE TYPE: GA Stress: 12.6mCi [id number] was administered IV for Rest Imaging at 13:45 by MAISHA Alicea. 30.5 mCi [id number] was administered IV for Stress Imaging at 15:40 by MAISHA Alicea. PATIENT DISCHARGED TO: Ambulatory patient, left [place] department area. A Diagnostic radioactive procedure has taken place, with no further precautions necessary other than routine body substance precautions. More information regarding radiation safety can be found using this link: [email or web address] SIGNATURE: MAISHA Alicea PATIENT NAME: Steven Koenig DATE: August 14, 2021 TIME: 4:03 PM [phone] History of Present illness Narrative* Carol Godinez [...] 27, 2021 10:19 [facility] of Present illness Narrative* Carol [...] 27, 2021 10:18 AM [facility] History of Past illness Narrative* Problem [...] of this encounter (statuses as of 03/01/2022) [facility] Narrative* Problem [...] of this encounter (statuses as of 03/13/2022) [facility] Narrative* Problem [...] of this encounter (statuses as of 03/23/2022) [facility] Narrative* Problem [...] of this encounter (statuses as of 04/03/2022) [facility] Narrative* Problem Noted Date Resolved Date Asthma 07/07/2020 07/07/2020 Hypomagnesemia 10/22/2019 10/23/2019 Last Assessment & Plan: Replete [facility] today Preop cardiovascular exam 09/28/20192018 Precordial pain, [...] of this encounter (statuses as of 05/03/2022) [facility] Narrative* Problem [...] of this encounter (statuses as of 05/07/2022) [facility] Narrative* Problem [...] of this encounter (statuses as of 05/11/2022) [facility] Narrative* Problem [...] of this encounter (statuses as of 05/23/2022) [facility] Narrative* Problem [...] of this encounter (statuses as of 05/24/2022) [facility] Narrative* Problem [...] of this encounter (statuses as of 05/25/2022) [facility] Narrative* Problem [...] of this encounter (statuses as of 05/29/2022) [facility] Narr[facility]* Problem [...] of this encounter (statuses as of 05/30/2022) [facility] Narrative* Problem [...] of this encounter (statuses as of 05/30/2022) [facility]* Problem [...] of this encounter (statuses as of 06/01/2022) [facility]* Problem [...] of this encounter (statuses as of 06/04/2022) [facility] Narrative* Problem [...] of this encounter (statuses as of 06/06/2022) [facility] Narrative* Problem [...] of this encounter (statuses as of 06/06/2022) [facility]* Problem [...] of this encounter (statuses as of 06/15/2022) [facility]arr[facility]* Problem [...] of this encounter (statuses as of 07/06/2022) [facility] Narrative* Problem [...] of this encounter (statuses as of 07/09/2022) [facility]* Problem [...] of this encounter (statuses as of 07/18/2022) [facility]* Problem [...] of this encounter (statuses as of 07/24/2022) [facility]arr[facility]* Problem [...] of this encounter (statuses as of 07/31/2022) [facility]* Problem [...] of this encounter (statuses as of 08/10/2022) [facility]* Problem [...] of this encounter (statuses as of 08/16/2022) [facility]arr[facility]* Problem [...] of this encounter (statuses as of 08/31/2022) [facility]arr[facility]* Problem [...] of this encounter (statuses as of 09/05/2022) [facility]* Problem [...] of this encounter (statuses as of 09/06/2022) [facility]* Problem [...] of this encounter (statuses as of 09/24/2022) [facility]* Problem [...] of this encounter (statuses as of 09/30/2022) [facility]* Problem [...] of this encounter (statuses as of 10/02/2022) [facility]* Problem [...] of this encounter (statuses as of 11/26/2022) [facility]* Problem [...] of this encounter (statuses as of 12/15/2022) [facility]* Problem [...] of this encounter (statuses as of 01/01/2023) [facility]* Problem [...] of this encounter (statuses as of 01/01/2023) [facility]* Problem [...] of this encounter (statuses as of 02/27/2023) [facility] Narr[facility]* Problem Noted Date Resolved Date Asthma 07/07/2020 07/07/2020 Hypomagnesemia 10/22/2019 10/23/2019 Last Assessment & Plan: Replete [facility] Preop cardiovascular exam 09/28/20192018 Precordial pain, short [...] of this encounter (statuses as of 04/16/2023) [facility] Narrative* Problem [...] of this encounter (statuses as of 05/09/2023) [facility]* Problem [...] of this encounter (statuses as of 05/09/2023) [facility] Narrative* Problem [...] of this encounter (statuses as of 05/14/2023) [facility]arr[facility]* Problem [...] of this encounter (statuses as of 05/28/2023) [facility]* Problem [...] of this encounter (statuses as of 06/07/2023) [facility]* Problem [...] of this encounter (statuses as of 06/11/2023) [facility]* Problem [...] of this encounter (statuses as of 06/13/2023) [facility]* Problem [...] of this encounter (statuses as of 06/14/2023) [facility]* Problem [...] of this encounter (statuses as of 09/26/2023) [facility]* Problem [...] of this encounter (statuses as of 10/18/2023) [facility]* Problem [...] of this encounter (statuses as of 12/24/2023) [facility] Narrative* Problem [...] of this encounter (statuses as of 01/25/2024) [facility] No data available for this section [facility] Evaluation + Plan note Future Appointments Appointment Date:01/21/2025 02:00:00 PM Scheduled Provider:EMMA QUEEN DO Location:[facility] Appointment Type:PC OV [facility] Evaluation + Plan note Future Appointments Appointment Date:12/14/2024 08:00:00 AM Scheduled Provider: Location:[facility] Appointment Type:CV Procedure - Heart Lab/Hybrid OR Appointment Date:12/18/2024 02:00:00 PM Scheduled Provider: Location:RAD Appointment Type:Echo - Echocardiogram Adult Appointment Date:01/18/2025 10:00:00 AM Scheduled Provider:CHRISTIN GONZALEZ Location:[facility] Appointment Type:CV OV Appointment Date:01/21/2025 02:00:00 PM Scheduled Provider:EMMA QUEEN DO Location:[facility] Appointment Type:PC OV [facility] Evaluation + Plan note Future Appointments Appointment Date:12/18/2024 02:00:00 PM Scheduled Provider: Location:[facility] Appointment Type:Echo - Echocardiogram Adult Appointment Date:01/18/2025 10:00:00 AM Scheduled Provider:CHRISTIN GONZALEZ Location:[facility] Appointment Type:CV OV Appointment Date:01/21/2025 02:00:00 PM Scheduled Provider:EMMA QUEEN DO Location:[facility] Appointment Type:PC OV Diagnostic Tests Pending * Complete Blood Count 12/14/24 [facility] evaluation + Plan note Future Appointments Appointment Date:01/18/2025 10:00:00 AM Scheduled Provider:CHRISTIN GONZALEZ Location:[facility] Appointment Type:CV OV Appointment Date:01/21/2025 02:00:00 PM Scheduled Provider:EMMA QUEEN DO Location:[facility] Appointment Type:PC OV [facility] Evaluation + Plan note Future Appointments Appointment Date:07/30/2025 10:00:00 AM Scheduled Provider:EMMA QUEEN DO Location:[facility] Appointment Type:PC OV Diagnostic Tests Pending * Blood Culture (bacterial) 06/12/25 * Blood Culture (bacterial) 06/12/25 Future Scheduled Tests Laboratory* Basic Metabolic Panel 01/11/25 * N-Terminal proBNP 01/11/25 Radiology* MRI Cardiac Morphology & Func W+W/O Cont 02/23/25 * CT Low Dose Lung Cancer Screening (LDCT) 03/10/25 [facility] evaluation note* Diagnosis Recurrent major depression in partial remission (HCC) Major depressive disorder, recurrent episode, in partial or unspecified remission [facility] Diagnosis Dyspnea on exertion- Primary Other dyspnea and respiratory abnormality Smoker Tobacco use disorder Encounter for screening for malignant neoplasm of lung [facility] Diagnosis Wheezing [facility]* Diagnosis DIAZ (dyspnea on exertion)- Primary Other dyspnea and respiratory abnormality Essential hypertension Unspecified essential hypertension Coronary artery disease involving [place] coronary artery of [place] heart without angina pectoris Mixed hyperlipidemia Smoker Tobacco use disorder Stenosis of carotid artery, unspecified laterality documented [facility] this [facility]* Diagnosis Recurrent major depression in partial remission (HCC) Major depressive disorder, recurrent episode, in partial or unspecified remission [facility] Diagnosis Chronic bronchitis, unspecified chronic bronchitis type (HCC)- Primary Recurrent major depression in partial remission (HCC) Major depressive disorder, recurrent episode, in partial or unspecified remission Gastroesophageal reflux disease, unspecified whether esophagitis present Need for vaccination Need for prophylactic vaccination and inoculation against unspecified single disease Bipolar affective disorder, current episode mixed, current episode severity unspecified (HCC) PAD (peripheral artery disease) ([facility]) Peripheral vascular disease, unspecified [facility]* Diagnosis DIAZ (dyspnea on exertion) Other dyspnea and respiratory abnormality [facility]* Diagnosis Tobacco use disorder- Primary [facility]* Diagnosis Smoker- Primary Tobacco use disorder Encounter for screening for malignant neoplasm of lung [facility]* Diagnosis Chronic bronchitis, unspecified chronic bronchitis type (HCC)- Primary [facility]* Diagnosis Dyspnea on exertion Other dyspnea and respiratory abnormality [facility] Diagnosis Asthma-COPD overlap syndrome (HCC)- Primary Wheezing Smoking Tobacco use disorder [facility]* Diagnosis Recurrent major depression in partial remission (HCC) Major depressive disorder, recurrent episode, in partial or unspecified remission [facility]* Diagnosis SOB (shortness of breath)- Primary Shortness of breath [facility] Diagnosis SOB (shortness of breath) Shortness of breath [facility] Diagnosis Recurrent major depression in partial remission (HCC) Major depressive disorder, recurrent episode, in partial or unspecified remission documented in this encounter [facility] note* Diagnosis Lung nodules- Primary Other nonspecific abnormal finding of lung field Current smoker Tobacco use disorder documented in this encounter [facility] note* Diagnosis Situational anxiety- Primary Other anxiety states Allergic conjunctivitis of both eyes Other chronic allergic conjunctivitis Recurrent major depression in partial remission (HCC) Major depressive disorder, recurrent episode, in partial or unspecified remission Essential hypertension Unspecified essential hypertension Coronary artery disease involving [place] coronary artery of [place] heart without angina pectoris Chronic bronchitis, unspecified chronic bronchitis type ([facility]) Encounter for immunization Need for other specified prophylactic vaccination against single bacterial disease Mixed hyperlipidemia Lung nodule Solitary pulmonary nodule Screening for osteoporosis Special screening for osteoporosis Asymptomatic menopause [facility]* Diagnosis Thrush (oral)- Primary Prediabetes Other abnormal glucose Essential hypertension Unspecified essential hypertension documented in this encounter [facility] note* Diagnosis Peripheral arterial disease (HCC)- Primary Peripheral vascular disease, unspecified documented in this encounter [facility] note* Diagnosis PAD (peripheral artery disease) ([facility]) Peripheral vascular disease, unspecified documented in this encounter [facility] note* Diagnosis Hemoptysis- Primary Hemoptysis, unspecified Stage 3 severe COPD by GOLD classification ([facility]) Cigarette smoker Tobacco use disorder [facility]* Diagnosis Alcohol withdrawal syndrome without complication (HCC)- Primary documented in this encounter [facility] note* Diagnosis Onset Date Resolution Status Alcohol intoxication acute Chest pain acute Desire for detoxification [place] COPD exacerbation [facility] Work Phone: Evaluation note* Diagnosis Onset Date Resolution Status Alcohol intoxication acute Chest pain acute Desire for detoxification [place] Peripheral arterial disease acute Pneumococcal pneumonia acute Rash acute COPD exacerbation [facility] Work Phone: Evaluation note* Diagnosis Dehydration- Primary documented in this encounter [facility] Work Phone: evaluation note* Diagnosis Chronic midline [...] without angina pectoris [facility]* Diagnosis Stage 3 severe COPD by GOLD classification ([facility])- Primary Cigarette smoker Tobacco use disorder Lung nodules Other nonspecific abnormal finding of lung field documented in this encounter [facility] note* Diagnosis Radiculopathy, lumbar region- Primary Thoracic or lumbosacral neuritis or radiculitis, unspecified Chronic midline low back pain with sciatica, sciatica laterality unspecified documented in this encounter [facility] note* Diagnosis Encounter for screening for lung cancer- Primary Tobacco use current documented in this encounter [facility] note* Diagnosis Essential hypertension Unspecified essential hypertension Recurrent major depression in partial remission (HCC) Major depressive disorder, recurrent episode, in partial or unspecified remission documented in this encounter [facility] note* Diagnosis Coronary artery disease involving [place] coronary artery of [place] heart without angina pectoris- Primary Wheezing Essential hypertension Unspecified essential hypertension Gastroesophageal reflux disease, unspecified whether esophagitis present Recurrent major depression in partial remission (HCC) Major depressive disorder, recurrent episode, in partial or unspecified remission documented in this encounter [facility] note* Diagnosis Wheezing [facility] Diagnosis Wheezing Essential hypertension Unspecified essential hypertension Gastroesophageal reflux disease, unspecified whether esophagitis present Recurrent major depression in partial remission (HCC) Major depressive disorder, recurrent episode, in partial or unspecified remission documented in this encounter [facility] note* Diagnosis Wheezing [facility]* Diagnosis Pre-operative examination- Primary Preoperative examination, unspecified Primary osteoarthritis of right hip Primary localized osteoarthrosis, pelvic region and thigh Essential hypertension Unspecified essential hypertension Chronic bronchitis, unspecified chronic bronchitis type ([facility]) Smoker Tobacco use disorder Recurrent major depression in partial remission (HCC) Major depressive disorder, recurrent episode, in partial or unspecified remission Bipolar affective disorder, current episode mixed, current episode severity unspecified ([facility]) Gastroesophageal reflux disease, esophagitis presence not specified PAD (peripheral artery disease) ([facility])- Primary Peripheral vascular disease, unspecified PAD (peripheral artery disease) ([facility]) Peripheral vascular disease, unspecified Essential hypertension Unspecified essential hypertension Smoker Tobacco use disorder Chronic bronchitis, unspecified chronic bronchitis type ([facility]) Smoker Tobacco use disorder Hypomagnesemia Disorders of magnesium metabolism Preoperative examination- Primary Preoperative examination, unspecified PAD (peripheral artery disease) ([facility]) Peripheral vascular disease, unspecified Essential hypertension Unspecified [...] sciatica laterality unspecified [facility] Diagnosis Pre-operative examination- Primary Preoperative [...] unspecified PAD (peripheral artery disease) ([facility]) Peripheral vascular disease, unspecified Essential hypertension Unspecified [...] bronchitis, unspecified chronic bronchitis type ([facility]) Encounter for immunization Need for other specified prophylactic vaccination against single bacterial disease Mixed hyperlipidemia Lung nodule Solitary pulmonary nodule Screening for osteoporosis Special screening for osteoporosis Asymptomatic menopause Hemoptysis Hemoptysis, unspecified [facility] Diagnosis Pre-operative examination- Primary Preoperative examination, unspecified Primary osteoarthritis of right hip Primary localized osteoarthrosis, pelvic region and thigh Essential hypertension Unspecified essential hypertension Chronic bronchitis, unspecified chronic bronchitis type ([facility]) Smoker Tobacco use disorder Recurrent major depression in partial remission (HCC) Major depressive disorder, recurrent episode, in partial or unspecified remission Bipolar affective disorder, current episode mixed, current episode severity unspecified ([facility]) Gastroesophageal reflux disease, esophagitis presence not specified PAD (peripheral artery disease) ([facility])- Primary Peripheral vascular disease, unspecified PAD (peripheral artery disease) ([facility]) Peripheral vascular disease, unspecified Essential hypertension Unspecified essential hypertension Smoker Tobacco use disorder Chronic bronchitis, unspecified chronic bronchitis type (HCC) Essential hypertension Unspecified essential hypertension Smoker Tobacco use disorder Hypomagnesemia Disorders of magnesium metabolism Preoperative examination- Primary Preoperative examination, unspecified PAD (peripheral artery disease) ([facility]) Peripheral vascular disease, unspecified Essential hypertension Unspecified essential hypertension Precordial pain, short lived, 3-5 minutes, nonexertional, no evidence of stress-induced ischemia on dobutamine echo in January 2019. Precordial pain Chronic bronchitis, unspecified chronic bronchitis type ([facility]) Smoker Tobacco use disorder Gastroesophageal reflux disease, [...] osteoporosis Asymptomatic menopause [facility] Author Dr. White [facility] January 02, 2023 9:37pm Note Date/Time January 02, 2023 9:19pm [facility] Medical Records Department [address] [place] [address] History & Physical Exam 01/02/232135 MR#: [id number] Acct: [id number] Name: STEVEN KOENIG Rep #:[id number] : [...] abuse, Tobacco use who presents to the [facility] ED on 01/02/23 with history of [...] rhythm with no acute evidence of ischemia. [facility] Alcohol abuse Anxiety [...] Clarity Clear, Urine pH 6.0, Ur Specific [place] 1.005, Urine Protein Negative, Urine Glucose (UA) [...] % (Auto) 50.1, Lymph % (Auto) 37.2, [place] % (Auto) 9.6, Eos % (Auto) 1.4, [...] 21:10 EST Reading Location ID and State: [address] [place] [address] , Service support , Assessment & Plan Assessment/Plan (1) Chest pain: (2) COPD exacerbation: (3) Desire for detoxification: PLAN: Plan The patient is a 67 y/o F w/ PMHx: COPD, HTN, HLD, Depression and Anxiety, EtOH abuse, Tobacco use who presents to the [facility] ED on 01/02/23 with history of [...] 76 minutes. Charges/Coding Visit Charges Inpatient E&M: 32992 Init Hosp L3 01/02/232136 <Electronically signed by Linda Luque MD> Cosigner Signature (if applicable): CC: Dr. Linda Luque MD; Dr. Ulises Hermosillo MD~ Signed [facility] Work Phone: Hospital Discharge instructions No data available for this section [facility] Note* Yolanda Gonzalez RN: PERFORM Event Display: Christin Outpatient Patient Summary Authored Date: [id number] Discharge Instructions Thank you for allowing [facility] to assist you with your healthcare needs. [...] MD When Within 2-4 days Where: [address] [place] [address]- Allergies NKA Medications Please ask your primary [...] may report side effects to FDA at 5-077-BLY-1939. What other drugs will affect budesonide and formoterol? Sometimes it is not safe to use certain medications at the same time. Some drugs can affect your blood levels of other drugs you take, which may increase side effects or make the medications less effective. Many drugs can affect budesonide and formoterol. This includes prescription and kash-anx-xvbfxxo medicines, vitamins, and herbal products. Not all [...] to ensure that the information provided by [employer]. ('[employer]') is accurate, up-to-date, and complete, but no guarantee is made to that effect. Drug information contained herein may be time sensitive. [employer] information has been compiled for use by healthcare practitioners and consumers in the [place] and therefore [employer] does not warrant that uses outside of the [place] are appropriate, unless specifically indicated otherwise. [employer] drug information does not endorse drugs, diagnose patients or recommend therapy. [employer] drug information isan informational resource designed to [...] effective or appropriate for any given patient. [employer] does not assume any responsibility for any aspect of healthcare administered with the aid of information [facility] provides. The information contained herein is not intended to cover all possible uses, directions, precautions, warnings, drug interactions, allergic reactions, or adverse effects. If you have questions about the drugs you are taking, check with your doctor, nurse or pharmacist. Copyright 9688-9617 [employer]. Version: 9.02. Revision Date: 07/08/2019. prednisone (PRED [...] may report side effects to FDA at 3-871-BNR-6693. What other drugs will affect prednisone? Sometimes [...] may affect prednisone. This includes prescription and kbkn-dwh-vfwwxae medicines, vitamins, and herbal products. Not all [...] to ensure that the information provided by [employer]. ('[employer]') is accurate, up-to-date, and complete, but no guarantee is made to that effect. Drug information contained herein may be time sensitive. [employer] information has been compiled for use by healthcare practitioners and consumers in the [place] and therefore [employer] does not warrant that uses outside of the [place] are appropriate, unless specifically indicated otherwise. [employer]'s drug information does not endorse drugs, diagnose patients or recommend therapy. [employer] drug information isan informational resource designed to [...] effective or appropriate for any given patient. [employer] does not assume any responsibility for any aspect of healthcare administered with the aid of information [employer] provides. The information contained herein is not intended to cover all possible uses, directions, precautions, warnings, drug interactions, allergic reactions, or adverse effects. If you have questions about the drugs you are taking, check with your doctor, nurse or pharmacist. Copyright 3854-4758 [employer]. Version: 10.. Revision Date: 02/05/2019. doxycycline (oral/injection) [...] or life-threatening conditions such as anthrax or [place] spotted fever. The benefit of treating a [...] may report side effects to FDA at 3-503-HQI-0599. What other drugs will affect doxycycline? Sometimes it is not safe to use certain medications at the same time. Some drugs can affect your blood levels of other drugs you take, which may increase side effects or make the medications less effective. Other drugs may affect doxycycline, including prescription and gjzn-rmv-yqcxazr medicines, vitamins, and herbal products. Tell your [...] to ensure that the information provided by [employer]. ('[employer]') is accurate, up-to-date, and complete, but no guarantee is made to that effect. Drug information contained herein may be time sensitive. [employer] information has been compiled for use by healthcare practitioners and consumers in the [place] and therefore [employer] does not warrant that uses outside of the [place] are appropriate, unless specifically indicated otherwise. [employer] drug information does not endorse drugs, diagnose patients or recommend therapy. [employer] drug information isan informational resource designed to [...] effective or appropriate for any given patient. [employer] does not assume any responsibility for any aspect of healthcare administered with the aid of information [employer] provides. The information contained herein is not intended to cover all possible uses, directions, precautions, warnings, drug interactions, allergic reactions, or adverse effects. If you have questions about the drugs you are taking, check with your doctor, nurse or pharmacist. Copyright 8432-2471 [employer]. Version: 21.04. Revision Date: 09/14/2020. Education Materials [...] your ankles gets worse Dizziness or weakness 6694-2104 [employer]. [address] [place] [address]. All rights reserved. This information is not intended as a substitute for professional medical care. Always follow yourhealthcare professional's instructions. Additional Information VACCINATE! IT SAVES LIVES! Members of the community who have not yet received the COVID-19 vaccine and would like to receive it can visit one of [facility] vaccine clinics. There are many vaccine clinic locations within the [facility]. For locations and available times, please visit [email or web address]. It is important to note that some COVID mobile vaccine clinics are held outdoors and may be canceled in rainy orstormy conditions. To learn more about pediatric vaccinations (ages 5-11), we invite you to visit the [facility] webpage. [email or web address] learn more about the COVID-19 vaccine, we invite you to visit the [facility] website for a list of frequently asked questions. [email or web address] [facility] Patient Portal Access Instructions: Stay connected with your healthcare team and access your personal medical information anytime with the [facility] Patient Portal. If you would like a full copy of your medical records please contact the [facility] Medical Records Department Saturday through Saturday between 8a.m. and 4:30p.m. Please follow the directions below to access the portal: 1.Access the email account you provided upon registration to the [facility].2.Look for an invitation email from [facility].3.Open the email and access the invitation link: Accept Invitation to [facility].Fill in the required randle to create your account. Sign into [email or web address] with your username and password that you [...] you will allow to register on the [facility] Patient Portal for access to your information. You can also access the [facility] Patient Portal on the [employer]. Simply click on Health Records under [employer] and then click on the [employer] logo. HOW TO SAFELY DISPOSE OF PRESCRIPTION [...] Call your local pharmacy or go to [email or web address].[email or web address] to find one close to you.3.Make use of household items: Use cat litter or old coffee grounds to dispose medications if other options arenot available. Mix your drugs with these household products, seal them in an airtight container andthrow it into the garbage. Call [facility]: [phone] to be sure your drugs can be [...] aware that I should contact my doctor. 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 Signature: Date/Time: Relationship to Patient: Witness Name/Signature: Date/Time: * ZINA GLOVER DO: SIGN, VERIFY Event Display: EKG [ED AOH] - CV Authored Date: [id number] [facility] Progress note No data available for this section [facility] Reason for referral (narrative)* Outpatient Procedure (Routine) - Authorized Specialty Diagnoses / Procedures Referred By Contac t Referred To Contact [facility] [place] Diagnoses DIAZ (dyspnea on exertion) Procedures ECHO ECHO TTHRC R-T 2D W/WOM-MODE COMPL SPEC&COLR D Tracy Ramires APRN.AIR POLLUTION INSPECTOR [address] [facility] [address] [place] [address] [facility] Vascular [address] [address] Referral ID Status Reason Start Date Expiration Date Visits Requested Visits Authorized [id number] Authorized Auto-Generat ed Referral 04/30/2022 04/30/2023 1 1 [facility] for referral (narrative)* Outpatient Procedure (Routine) - Authorized Specialty Diagnoses / Procedures Referred By Contac t Referred To Contact [facility] Diagnoses SOB (shortness of breath) Procedures OXIMETRY WITH AMBULATION NONINVASIVE EAR/PULSE OXIMETRY MULTIPLE Margaret Atwood MD [address] [place] [address] [facility] [place] [address] [place] [id number] Referral ID Status Reason Start Date Expiration Date Visits Requested Visits Authorized [id number] Authorized Auto-Generat ed Referral 07/06/2022 08/05/2023 1 1 [facility] for referral (narrative)* Outpatient Procedure (Routine) - Authorized Specialty Diagnoses / Procedures Referred By Contac t Referred To Contact [facility] [place] Diagnoses Peripheral arterial disease (HCC) Procedures PVR LEG SHERIN VAS LAB NON-INVASIVE PHYSIOLOGIC STUDY EXTREMITY 3 Doron Mahoney DO [address] [place] [address] [facility] [place] [address] [place] [address] Referral ID Status Reason Start Date Expiration Date Visits Requested Visits Authorized [id number] Authorized Auto-Generat ed Referral 2 11/10/2022 1 1 [facility] for referral (narrative)* Outpatient Procedure (Routine) - Pending Review Specialty Diagnoses / Procedures Referred By Contac t Referred To Contact [facility] [place] Diagnoses PAD (peripheral artery disease) (HCC) Procedures PVR LEG SHERIN VAS LAB NON-INVASIVE PHYSIOLOGIC STUDY EXTREMITY 3 Doron Mahoney, DO [address] [place] [address] [facility] [address] [place] [address] Referral ID Status Reason Start Date Expiration Date Visits Requested Visits Authorized [id number] Pending Review Auto-Generat ed Referral 2 10/02/2023 1 1 [facility] for referral (narrative)* Diagnostic Procedure Only (Routine) - Closed Specialty Diagnoses / Procedures Referred By Contac t Referred To Contact XR IMAGING Diagnoses Chronic midline low back pain with sciatica, sciatica laterality unspecified Procedures XR LUMBAR GENERAL 3V AP/LAT/L5-S1 RADEX SPINE LUMBOSACRAL 2/3 VIEWS Sarah, Oly, SENIOR WINDOWS SYSTEMS ENGINEER.AIR POLLUTION INSPECTOR [address] [place] [address] Xr Imaging Referral ID Status Reason Start Date Expiration Date V isits Requested Visits Authorized [id number] Closed Auto-Generate d Referral 05/08/2023 06/06/2024 1 1 * Transition of Care (Routine) - Ref Not Required Specialty Diagnoses / Procedures Referred By Contac t Referred To Contact Dermatology Diagnoses Lesion of left ear Procedures CONSULT TO DERMATOLOGY Oly Smith APRN.AIR POLLUTION INSPECTOR [address] [place] [address] Referral ID Status Reason Start Date Expiration Date Visits Requested Visits Authorized [id number] Ref Not Required PCP Requested Referral 05/08/2023 05/07/2024 1 1 [facility] for referral (narrative)* Diagnostic Procedure Only (Routine) - Closed Specialty Diagnoses / Procedures Referred By Contac t Referred To Contact XR IMAGING Diagnoses Chronic midline low back pain with sciatica, sciatica laterality unspecified Procedures XR LUMBAR GENERAL 3V AP/LAT/L5-S1 RADEX SPINE LUMBOSACRAL 2/3 VIEWS Oly Durbin SENIOR WINDOWS SYSTEMS ENGINEER.AIR POLLUTION INSPECTOR [address] [place] [address] [place] [address] Referral ID Status Reason Start Date Expiration Date V isits Requested Visits Authorized [id number] Closed Auto-Generate d Referral 05/08/2023 06/06/2024 1 1 [facility] for visit Narrative* Outpatient Procedure (Routine) - Closed Specialty Diagnoses / Procedures Referred By Contac t Referred To Contact [facility] Diagnoses DIAZ (dyspnea on exertion) Procedures ECHO ECHO TTHRC R-T 2D W/WOM-MODE COMPL SPEC&COLR D Tracy Ramires SENIOR WINDOWS SYSTEMS ENGINEER.AIR POLLUTION INSPECTOR [address] [facility] [address] [place] [address] [facility] [place] [address] [place] [address] Referral ID Status Reason Start Date Expiration Date V isits Requested Visits Authorized [id number] Closed Auto-Generate d Referral 04/30/2022 04/30/2023 1 1 [facility] for visit Narrative* Outpatient Procedure (Routine) - Closed Specialty Diagnoses / Procedures Referred By Contac t Referred To Contact [facility] Diagnoses SOB (shortness of breath) Procedures OXIMETRY WITH AMBULATION NONINVASIVE EAR/PULSE OXIMETRY MULTIPLE DETER Margaret Kasper MD [address] [place] [address] [facility] [place] [address] [place] [address] Referral ID Status Reason Start Date Expiration Date V isits Requested Visits Authorized [id number] Closed Auto-Generate d Referral 07/06/2022 08/05/2023 1 1 [facility] for visit Narrative* Diagnostic Procedure Only (Routine) - Closed Specialty Diagnoses / Procedures Referred By Contac t Referred To Contact XR IMAGING Diagnoses Chronic midline low back pain with sciatica, sciatica laterality unspecified Procedures XR LUMBAR GENERAL 3V AP/LAT/L5-S1 RADEX SPINE LUMBOSACRAL 2/3 VIEWS Oly Durbin M, SENIOR WINDOWS SYSTEMS ENGINEER.AIR POLLUTION INSPECTOR [address] [place] [address] [place] [address] Referral ID Status Reason Start Date Expiration Date V isits Requested Visits Authorized [id number] Closed Auto-Generate d Referral 05/08/2023 06/06/2024 1 1 [facility] Summary Purpose Family History No Family History Records Found Relationship Condition Age at Onset Recorded Date/T eyad mother Malignant neoplasm of liver Unknown father Malignant neoplasm of lung Unknown Advance Directives No Advanced Directives Records FoundDocuments on File Type Date Recorded Patient Heat Set Operator Expl anation Advance Directive(s) 08/25/2021 8:30 AM Advance Directive(s) 07/27/2021 5:44 PM Advance Directive(s) 10/20/2019 11:23 AM Advance Directive(s) 10/05/2019 10:43 AM Advance Directive(s) 03/25/2019 7:55 AM Advance Directive(s) 01/06/2019 12:24 PM Advance Directive(s) 03/19/2017 9:41 AM Documents on File Type Date Recorded Patient Heat Set Operator Expl anation Advance Directive(s) 08/25/2021 8:30 AM Advance Directive(s) 07/27/2021 5:44 PM Advance Directive(s) 10/20/2019 11:23 AM Advance Directive(s) 10/05/2019 10:43 AM Advance Directive(s) 03/25/2019 7:55 AM Advance Directive(s) 01/06/2019 12:24 PM Advance Directive(s) 03/19/2017 9:41 AM Advance Directive Response Recorded Date/ Time Advance Directives No May 24 2:30pm Living Will No January 02 2 023 6:52pm Power of Industrial Robotics Mechanic No January 02, 2023 6:52pm Advance Directive Response Recorded Date/ Time Advance Directives No May 24 2:30pm Living Will No January 02 023 11:38pm Power of Industrial Robotics Mechanic No January 02, 2023 11:38pm Latest Code Status on File Code Status Date Activated Date Inactivated Comments Full Code 04/30/2018 3:04 AM 05/05/2018 2:43 PM Reason for Referral Specialty Diagnoses / Procedures Referred By Contac t Referred To Contact Pulmonary and Critical Care Medicine Diagnoses Dyspnea on exertion Procedures CONSULT TO PULM/CRITICAL CARE OFFICE/OUTPATIENT [facility] 60-74 MINUTES Nicole Kenny, SENIOR WINDOWS SYSTEMS ENGINEER.AIR POLLUTION INSPECTOR [address] [place] [address] Referral ID Status Reason Start Date Expiration Date Visits Requested Visits Authorized [id number] Authorized PCP Requested Referral 03/13/2022 03/13/2023 1 1 Specialty Diagnoses / Procedures Referred By Contac t Referred To [facility] [place] Diagnoses Dyspnea on exertion Procedures LUNG DIFFUSION CAPACITY (DLCO) DIFFUSING CAPACITY Nicole Kenny, SENIOR WINDOWS SYSTEMS ENGINEER.AIR POLLUTION INSPECTOR [address] [place] [address] [facility] [place] [address] [place] [address] Referral ID Status Reason Start Date Expiration Date Visits Requested Visits Authorized [id number] Authorized Auto-Generat ed Referral 03/13/2022 04/12/2023 1 1 Specialty Diagnoses / Procedures Referred By Contac t Referred To [facility] Diagnoses Dyspnea on exertion Procedures SPIROMETRY - BASELINE AND POST DILATOR BRNCDILAT RSPSE SPMTRY PRE&POST-BRNCDILAT ADMN Nicole Kenny, SENIOR WINDOWS SYSTEMS ENGINEER.AIR POLLUTION INSPECTOR [address] [place] [address] [facility] [place] [address] [place] [address] Referral ID Status Reason Start Date Expiration Date Visits Requested Visits Authorized [id number] Authorized Auto-Generat ed Referral 03/13/2022 04/12/2023 1 1 Specialty Diagnoses / Procedures Referred By Contac t Referred To Contact Vascular Surgery Diagnoses PAD (peripheral artery disease) (HCC) Procedures CONSULT TO VASCULAR SURGERY OFFICE/OUTPATIENT [facility] MDM 60-[place] [address] [place] [address] Referral ID Status Reason Start Date Expiration Date Visits Requested Visits Authorized [id number] Authorized PCP Requested Referral 05/11/2022 05/11/2023 1 1 Specialty Diagnoses / Procedures Referred By Contac t Referred To Contact [facility] [place] Diagnoses PAD (peripheral artery disease) ([facility]) Procedures PVR LEG SHERIN VAS LAB NON-INVASIVE PHYSIOLOGIC STUDY EXTREMITY 3 LEVLS Ulises Hermosillo MD [address] [place] [address] [facility] [place] [address] [place] [address] Referral ID Status Reason Start Date Expiration Date Visits Requested Visits Authorized [id number] Authorized Auto-Generat ed Referral 05/11/2022 05/11/2023 1 1 Specialty Diagnoses / Procedures Referred By Contac t Referred To Contact CT IMAGING Diagnoses Smoker Encounter for screening for malignant neoplasm of lung Procedures CT LUNG SCREEN WO IVCON COMPUTED TOMOGRAPHY THORAX LW DOSE LNG CA SCR C- Nicole Kenny, MELISSA.AIR POLLUTION INSPECTOR [address] [place] [address] Ct Imaging Referral ID Status Reason Start Date Expiration Date Visits Requested Visits Authorized [id number] Pending Review Auto-Generat ed Referral 05/30/2022 06/29/2023 1 1 Specialty Diagnoses / Procedures Referred By Contac t Referred To Contact [facility] Diagnoses Radiculopathy, lumbar region Chronic midline low back pain with sciatica, sciatica laterality unspecified Procedures CONSULT TO PHYSICAL THERAPY PHYSICAL THERAPY EVALUATION HIGH COMPLEX 45 MINS 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, 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 [address] [place] [address] [facility] [place] [address] [place] [address] Referral ID Status Reason Start Date Expiration Date Visits Requested Visits Authorized [id number] Pending Review Auto-Generat ed Referral 05/13/2023 05/12/2024 1 1 Specialty Diagnoses / Procedures Referred By Contac t Referred To Contact Pain Management Diagnoses Radiculopathy, lumbar region Chronic midline low back pain with sciatica, sciatica laterality unspecified Procedures CONSULT TO PAIN MGT OFFICE/OUTPATIENT [facility] MDM 60-74 MINUTES Older, RAZIA AldridgeN.AIR POLLUTION INSPECTOR [address] [place] [address] Referral ID Status Reason Start Date Expiration Date Visits Requested Visits Authorized [id number] Pending Review PCP Requested Referral 05/13/2023 05/12/2024 1 1 Specialty Diagnoses / Procedures Referred By Contac t Referred To Contact CT IMAGING Diagnoses Encounter for screening for lung cancer Tobacco use current Procedures CT LUNG SCREEN WO IVCON COMPUTED TOMOGRAPHY THORAX LW DOSE LNG CA Fifi Fitzpatrick, MELISSA.AIR POLLUTION INSPECTOR [address] [place] [address] Ct Imaging Referral ID Status Reason Start Date Expiration Date Visits Requested Visits Authorized [id number] Pending Review Auto-Generat ed Referral 05/28/2023 06/26/2024 [...] DATE CREATED AUTHOR AUTHOR'S ORGANIZ ATION 05/04/2018 [facility] DATE CREATED AUTHOR AUTHOR'S ORGANIZ ATION 01/05/2022 [facility] DATE CREATED AUTHOR AUTHOR'S ORGANIZ ATION 08/11/2022 [facility] DATE CREATED AUTHOR AUTHOR'S ORGANIZ ATION 12/29/2022 [facility] ([place]) DATE CREATED AUTHOR AUTHOR'S ORGANIZ ATION 01/08/2023 [facility] DATE CREATED AUTHOR AUTHOR'S ORGANIZ ATION 10/05/2023 [facility] DATE CREATED AUTHOR AUTHOR'S ORGANIZ ATION 07/02/2025 [facility] DATE CREATED AUTHOR AUTHOR'S ORGANIZ ATION 07/25/2025 [facility] DATE CREATED AUTHOR AUTHOR'S ORGANIZ ATION 07/28/2025 [facility] Source Comments (unrecognize d section and content) In the event this informatio n is protected by the Federal Confidentiality of Alcohol and Drug Abuse Patient Records regulations: The Federal rules restrict any use of the information to criminally investigate or prosecute any alcohol or drug abuse patient.[facility] the event this information is protected by the Federal Confidentiality of Alcohol and Drug Abuse Patient Records regulations: The Federal rules restrict any use of the information to criminally investigate or prosecute any alcohol or drug abuse patient.[facility] HospitalIn the event this information is protected by the Federal Confidentiality of Alcohol and Drug Abuse Patient Records regulations: The Federal rules restrict any use of the information to criminally investigate or prosecute any alcohol or drug abuse patient.[facility] HospitalIn the event this information is protected by the Federal Confidentiality of Alcohol and Drug Abuse Patient Records regulations: The Federal rules restrict any use of the information to criminally investigate or prosecute any alcohol or drug abuse patient.[facility] Hospital[facility] the event this information is protected by the Federal Confidentiality of Alcohol and Drug Abuse Patient Records regulations: The Federal rules restrict any use of the information to criminally investigate or prosecute any alcohol or drug abuse patient.[facility] HospitalIn the event this information is protected by the Federal Confidentiality of Alcohol and Drug Abuse Patient Records regulations: The Federal rules restrict any use of the information to criminally investigate or prosecute any alcohol or drug abuse patient.[facility] HospitalIn the event this information is protected by the Federal Confidentiality of Alcohol and Drug Abuse Patient Records regulations: The Federal rules restrict any use of the information to criminally investigate or prosecute any alcohol or drug abuse patient.[facility] HospitalIn the event this information is protected by the Federal Confidentiality of Alcohol and Drug Abuse Patient Records regulations: The Federal rules restrict any use of the information to criminally investigate or prosecute any alcohol or drug abuse patient.[facility]In the event this information is protected by the Federal Confidentiality of Alcohol and Drug Abuse Patient Records regulations: The Federal rules restrict any use of the information to criminally investigate or prosecute any alcohol or drug abuse patient.[facility] HospitalIn the event this information is protected by the Federal Confidentiality of Alcohol and Drug Abuse Patient Records regulations: The Federal rules restrict any use of the information to criminally investigate or prosecute any alcohol or drug abuse patient.[facility] HospitalIn the event this information is protected by the Federal Confidentiality of Alcohol and Drug Abuse Patient Records regulations: The Federal rules restrict any use of the information to criminally investigate or prosecute any alcohol or drug abuse patient.[facility] HospitalIn the event this information is protected by the Federal Confidentiality of Alcohol and Drug Abuse Patient Records regulations: The Federal rules restrict any use of the information to criminally investigate or prosecute any alcohol or drug abuse patient.[facility] HospitalIn the event this information is protected by the Federal Confidentiality of Alcohol and Drug Abuse Patient Records regulations: The Federal rules restrict any use of the information to criminally investigate or prosecute any alcohol or drug abuse patient.[facility] HospitalIn the event this information is protected by the Federal Confidentiality of Alcohol and Drug Abuse Patient Records regulations: The Federal rules restrict any use of the information to criminally investigate or prosecute any alcohol or drug abuse patient.[facility] HospitalIn the event this information is protected by the Federal Confidentiality of Alcohol and Drug Abuse Patient Records regulations: The Federal rules restrict any use of the information to criminally investigate or prosecute any alcohol or drug abuse patient.[facility] HospitalIn the event this information is protected by the Federal Confidentiality of Alcohol and Drug Abuse Patient Records regulations: The Federal rules restrict any use of the information to criminally investigate or prosecute any alcohol or drug abuse patient.[facility] HospitalIn the event this information is protected by the Federal Confidentiality of Alcohol and Drug Abuse Patient Records regulations: The Federal rules restrict any use of the information to criminally investigate or prosecute any alcohol or drug abuse patient.[facility] HospitalIn the event this information is protected by the Federal Confidentiality of Alcohol and Drug Abuse Patient Records regulations: The Federal rules restrict any use of the information to criminally investigate or prosecute any alcohol or drug abuse patient.[facility] HospitalIn the event this information is protected by the Federal Confidentiality of Alcohol and Drug Abuse Patient Records regulations: The Federal rules restrict any use of the information to criminally investigate or prosecute any alcohol or drug abuse patient.[facility] HospitalIn the event this information is protected by the Federal Confidentiality of Alcohol and Drug Abuse Patient Records regulations: The Federal rules restrict any use of the information to criminally investigate or prosecute any alcohol or drug abuse patient.[facility] HospitalIn the event this information is protected by the Federal Confidentiality of Alcohol and Drug Abuse Patient Records regulations: The Federal rules restrict any use of the information to criminally investigate or prosecute any alcohol or drug abuse patient.[facility] HospitalIn the event this information is protected by the Federal Confidentiality of Alcohol and Drug Abuse Patient Records regulations: The Federal rules restrict any use of the information to criminally investigate or prosecute any alcohol or drug abuse patient.[facility] HospitalIn the event this information is protected by the Federal Confidentiality of Alcohol and Drug Abuse Patient Records regulations: The Federal rules restrict any use of the information to criminally investigate or prosecute any alcohol or drug abuse patient.[facility] HospitalIn the event this information is protected by the Federal Confidentiality of Alcohol and Drug Abuse Patient Records regulations: The Federal rules restrict any use of the information to criminally investigate or prosecute any alcohol or drug abuse patient.[facility] HospitalIn the event this information is protected by the Federal Confidentiality of Alcohol and Drug Abuse Patient Records regulations: The Federal rules restrict any use of the information to criminally investigate or prosecute any alcohol or drug abuse patient.[facility] HospitalIn the event this information is protected by the Federal Confidentiality of Alcohol and Drug Abuse Patient Records regulations: The Federal rules restrict any use of the information to criminally investigate or prosecute any alcohol or drug abuse patient.[facility] HospitalIn the event this information is protected by the Federal Confidentiality of Alcohol and Drug Abuse Patient Records regulations: The Federal rules restrict any use of the information to criminally investigate or prosecute any alcohol or drug abuse patient.[facility] HospitalIn the event this information is protected by the Federal Confidentiality of Alcohol and Drug Abuse Patient Records regulations: The Federal rules restrict any use of the information to criminally investigate or prosecute any alcohol or drug abuse patient.[facility] HospitalIn the event this information is protected by the Federal Confidentiality of Alcohol and Drug Abuse Patient Records regulations: The Federal rules restrict any use of the information to criminally investigate or prosecute any alcohol or drug abuse patient.[facility] HospitalIn the event this information is protected by the Federal Confidentiality of Alcohol and Drug Abuse Patient Records regulations: The Federal rules restrict any use of the information to criminally investigate or prosecute any alcohol or drug abuse patient.[facility] HospitalIn the event this information is protected by the Federal Confidentiality of Alcohol and Drug Abuse Patient Records regulations: The Federal rules restrict any use of the information to criminally investigate or prosecute any alcohol or drug abuse patient.[facility] HospitalIn the event this information is protected by the Federal Confidentiality of Alcohol and Drug Abuse Patient Records regulations: The Federal rules restrict any use of the information to criminally investigate or prosecute any alcohol or drug abuse patient.[facility] HospitalIn the event this information is protected [...] or prosecute any alcohol or drug abuse patient.[facility] HospitalIn the event this information is protected by the Federal Confidentiality of Alcohol and Drug Abuse Patient Records regulations: The Federal rules restrict any use of the information to criminally investigate or prosecute any alcohol or drug abuse patient.[facility] HospitalIn the event this information is protected by the Federal Confidentiality of Alcohol and Drug Abuse Patient Records regulations: The Federal rules restrict any use of the information to criminally investigate or prosecute any alcohol or drug abuse patient.[facility] HospitalIn the event this information is protected by the Federal Confidentiality of Alcohol and Drug Abuse Patient Records regulations: The Federal rules restrict any use of the information to criminally investigate or prosecute any alcohol or drug abuse patient.[facility] HospitalIn the event this information is protected by the Federal Confidentiality of Alcohol and Drug Abuse Patient Records regulations: The Federal rules restrict any use of the information to criminally investigate or prosecute any alcohol or drug abuse patient.[facility] HospitalIn the event this information is protected by the Federal Confidentiality of Alcohol and Drug Abuse Patient Records regulations: The Federal rules restrict any use of the information to criminally investigate or prosecute any alcohol or drug abuse patient.[facility] HospitalIn the event this information is protected by the Federal Confidentiality of Alcohol and Drug Abuse Patient Records regulations: The Federal rules restrict any use of the information to criminally investigate or prosecute any alcohol or drug abuse patient.[facility] HospitalIn the event this information is protected by the Federal Confidentiality of Alcohol and Drug Abuse Patient Records regulations: The Federal rules restrict any use of the information to criminally investigate or prosecute any alcohol or drug abuse patient.[facility] HospitalIn the event this information is protected by the Federal Confidentiality of Alcohol and Drug Abuse Patient Records regulations: The Federal rules restrict any use of the information to criminally investigate or prosecute any alcohol or drug abuse patient.[facility] HospitalIn the event this information is protected by the Federal Confidentiality of Alcohol and Drug Abuse Patient Records regulations: The Federal rules restrict any use of the information to criminally investigate or prosecute any alcohol or drug abuse patient.[facility] HospitalIn the event this information is protected by the Federal Confidentiality of Alcohol and Drug Abuse Patient Records regulations: The Federal rules restrict any use of the information to criminally investigate or prosecute any alcohol or drug abuse patient.[facility] HospitalIn the event this information is protected by the Federal Confidentiality of Alcohol and Drug Abuse Patient Records regulations: The Federal rules restrict any use of the information to criminally investigate or prosecute any alcohol or drug abuse patient.[facility] HospitalIn the event this information is protected by the Federal Confidentiality of Alcohol and Drug Abuse Patient Records regulations: The Federal rules restrict any use of the information to criminally investigate or prosecute any alcohol or drug abuse patient.[facility] HospitalIn the event this information is protected by the Federal Confidentiality of Alcohol and Drug Abuse Patient Records regulations: The Federal rules restrict any use of the information to criminally investigate or prosecute any alcohol or drug abuse patient.[facility] HospitalIn the event this information is protected by the Federal Confidentiality of Alcohol and Drug Abuse Patient Records regulations: The Federal rules restrict any use of the information to criminally investigate or prosecute any alcohol or drug abuse patient.[facility] HospitalIn the event this information is protected by the Federal Confidentiality of Alcohol and Drug Abuse Patient Records regulations: The Federal rules restrict any use of the information to criminally investigate or prosecute any alcohol or drug abuse patient.[facility] HospitalIn the event this information is protected by the Federal Confidentiality of Alcohol and Drug Abuse Patient Records regulations: The Federal rules restrict any use of the information to criminally investigate or prosecute any alcohol or drug abuse patient.[facility] HospitalIn the event this information is protected by the Federal Confidentiality of Alcohol and Drug Abuse Patient Records regulations: The Federal rules restrict any use of the information to criminally investigate or prosecute any alcohol or drug abuse patient.[facility] HospitalIn the event this information is protected by the Federal Confidentiality of Alcohol and Drug Abuse Patient Records regulations: The Federal rules restrict any use of the information to criminally investigate or prosecute any alcohol or drug abuse patient.[facility] HospitalIn the event this information is protected by the Federal Confidentiality of Alcohol and Drug Abuse Patient Records regulations: The Federal rules restrict any use of the information to criminally investigate or prosecute any alcohol or drug abuse patient.[facility] Reason for Visit (unrecogniz ed section [...] BRNCDILAT RSPSE SPMTRY PRE&POST-BRNCDILAT ADMN Nicole Kenny, SENIOR WINDOWS SYSTEMS ENGINEER.AIR POLLUTION INSPECTOR [address] [place] [address] Respiratory [place] [address] [place] [address] Referral ID Status Reason Start Date Expiration Date V isits Requested Visits Authorized [id number] Closed Auto-Generate d Referral 03/13/2022 04/12/2023 1 [...] NEW HIGH MDM 60-74 MINUTES Nicole Kenny, SENIOR WINDOWS SYSTEMS ENGINEER.AIR POLLUTION INSPECTOR [address] [place] [address] Referral ID Status Reason Start Date Expiration Date V isits Requested Visits Authorized [id number] Closed PCP Requested Referral 03/13/2022 03/13/2023 1 [...] MDM 60-74 MINUTES Ulises Hermosillo MD [address] [place] [address] [address] [place] [address] Referral ID Status Reason Start Date Expiration Date V isits Requested Visits Authorized [id number] Closed PCP Requested Referral 05/11/2022 05/11/2023 1 1 Reason Comments New Patient Hemoptysis Reason Comments Behavioral Health Social Work Reason Comments Shortness of Breath Sent from [facility]. 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 Was sent to [facility] without O2, patient is on 2 L NC routinely Reason Onset Date Comments Population Health Navigation Outreach 04/16/2023 Navigator Kailash amaya [facility] gap outreach Reason Comments Follow Up Blood [...] Care Teams (unrecognized sec tion and content) Assisted Living Coordinator Relationship Specialty Start Date End Date Ulises Hermosillo MD [address] [place], [place] [id number] PCP - General Internal Medicine 01/25/16 Assisted Living Coordinator Relationship Specialty Start Date End Date Ulises Hermosillo MD [address] [place] [address] PCP - General Internal Medicine 01/25/16 Assisted Living Coordinator Relationship Specialty Start Date End Date Ulises Hermosillo MD [address] [place] [address] PCP - General Internal Medicine 01/25/16 Assisted Living Coordinator Relationship Specialty Start Date End Date Ulises Hermosillo MD [address] [facility] [place] [address] PCP - General Internal Medicine 01/25/16 Assisted Living Coordinator Relationship Specialty Start Date End Date Ulises Hermosillo MD [address] [facility] [place] [address] PCP - General Internal Medicine 01/25/16 Assisted Living Coordinator Relationship Specialty Start Date End Date Ulises Hermosillo MD [address] [facility] [place] [address] PCP - General Internal Medicine 01/25/16 Assisted Living Coordinator Relationship Specialty Start Date End Date Ulises Hermosillo MD [address] [facility] [place] [address] PCP - General Internal Medicine 01/25/16 Assisted Living Coordinator Relationship Specialty Start Date End Date Ulises Hermosillo MD [address] [facility] [place] [address] PCP - General Internal Medicine 01/25/16 Assisted Living Coordinator Relationship Specialty Start Date End Date Ulises Hermosillo MD [address] [facility] [place] [address] PCP - General Internal Medicine 01/25/16 Assisted Living Coordinator Relationship Specialty Start Date End Date Ulises Hermosillo MD [address] [facility] [place] [address] PCP - General Internal Medicine 01/25/16 Assisted Living Coordinator Relationship Specialty Start Date End Date Ulises Hermosillo MD [address] [facility] [place] [address] PCP - General Internal Medicine 01/25/16 Assisted Living Coordinator Relationship Specialty Start Date End Date Ulises Hermosillo MD [address] [facility] [place] [address] PCP - General Internal Medicine 01/25/16 Assisted Living Coordinator Relationship Specialty Start Date End Date Ulises Hermosillo MD [address] [facility] [place] [address] PCP - General Internal Medicine 01/25/16 Assisted Living Coordinator Relationship Specialty Start Date End Date Ulises Hermosillo MD [address] [facility] [place] [address] PCP - General Internal Medicine 01/25/16 Assisted Living Coordinator Relationship Specialty Start Date End Date Ulises Hermosillo MD [address] [facility] [place] [address] PCP - General Internal Medicine 01/25/16 Assisted Living Coordinator Relationship Specialty Start Date End Date Ulises Hermosillo MD [address] [facility] [place] [address] PCP - General Internal Medicine 01/25/16 Assisted Living Coordinator Relationship Specialty Start Date End Date Ulises Hermosillo MD [address] [facility] [place] [address] PCP - General Internal Medicine 01/25/16 Assisted Living Coordinator Relationship Specialty Start Date End Date Ulises Hermosillo MD [address] [facility] [place] [address] PCP - General Internal Medicine 01/25/16 Assisted Living Coordinator Relationship Specialty Start Date End Date Ulises Hermosillo MD [address] [facility] [place] [address] PCP - General Internal Medicine 01/25/16 Assisted Living Coordinator Relationship Specialty Start Date End Date Ulises Hermosillo MD [address] [facility] [place] [address] PCP - General Internal Medicine 01/25/16 Assisted Living Coordinator Relationship Specialty Start Date End Date Ulises Hermosillo MD [address] [place] [address] PCP - General Internal Medicine 01/25/16 Assisted Living Coordinator Relationship Specialty Start Date End Date Ulises Hermosillo MD [address] [place] [address] PCP - General Internal Medicine 01/25/16 Team [...] Miah Koroma MD Emergency Provider Active Dr. Lidna Luque MD Admit Provider, Attending Provider, Other [...] Dr. Joel Sauer DO Other Provider Active Assisted Living Coordinator Relationship Specialty Start Date End Date Ulises Hermosillo MD [address] [facility], [place] [id number] PCP - General Internal Medicine 01/25/16 Assisted Living Coordinator Relationship Specialty Start Date End Date Ulises Hermosillo MD [address] [facility] [place] [address] PCP - General Internal Medicine 01/25/16 Assisted Living Coordinator Relationship Specialty Start Date End Date Ulises Hermosillo MD [address] [place] [address] PCP - General Internal Medicine 01/25/16 Assisted Living Coordinator Relationship Specialty Start Date End Date Ulises Hermosillo MD [address] [place] [address] PCP - General Internal Medicine 01/25/16 Assisted Living Coordinator Relationship Specialty Start Date End Date Ulises Hermosillo MD [address] [place] [address] PCP - General Internal Medicine 01/25/16 Assisted Living Coordinator Relationship Specialty Start Date End Date Ulises Hermosillo MD [address] [place] [address] PCP - General Internal Medicine 01/25/16 Assisted Living Coordinator Relationship Specialty Start Date End Date Ulises Hermosillo MD [address] [place] [address] PCP - General Internal Medicine 01/25/16 Assisted Living Coordinator Relationship Specialty Start Date End Date Ulises Hermosillo MD [address] [place] [address] PCP - General Internal Medicine 01/25/16 Assisted Living Coordinator Relationship Specialty Start Date End Date Ulises Hermosillo MD [address] [place] [address] PCP - General Internal Medicine 01/25/16 Assisted Living Coordinator Relationship Specialty Start Date End Date Ulises Hermosillo MD [address] [facility] [place] [address] PCP - General Internal Medicine 01/25/16 Assisted Living Coordinator Relationship Specialty Start Date End Date Ulises Hermosillo MD [address] [facility] [place] [address] PCP - General Internal Medicine 01/25/16 01/14/24 Assisted Living Coordinator Relationship Specialty Start Date End Date Ulises Hermosillo MD [address] [facility] [place] [address] PCP - General Internal Medicine 01/25/16 01/14/24 Assisted Living Coordinator Relationship Specialty Start Date End Date Ulises Hermosillo MD [address] [facility] [place] [address] PCP - General Internal Medicine 01/25/16 01/14/24 Gabriella Chambers RN [address] [facility] [place] [address] Primary Service Internal Medicine 02/27/18 04/26/21 Assisted Living Coordinator Relationship Specialty Start Date End Date Ulises Hermosillo MD [address] [facility] [place] [address] PCP - General Internal Medicine 01/25/16 01/14/24 Gabriella Chambers RN [address] [facility] [place] [address] Primary Service Internal Medicine 02/27/18 04/26/21 Care Team (unrecognized sect ion and content) Personnel Name: ULISES HERMOSILLO MD Address: Address: [address] [place] [address]- Personnel Name: ULISES HERMOSILLO MD Address: Address: [address] [place] [address]- Care Team Personnel Name: ULISES HERMOSILLO MD Member Role: Primary Care Physician Address: Address: [address] [place] [address]- Name: Yolanda Gonzalez RN Position: RN Member Role: RN Name: ZINA GLOVER DO Position: ED Physician Address: Address: [address] [facility] [place] [address]- [place] Name: BRIAN TRINIDAD DO Position: Resident Member Role: ED Physician Address: Address: [address] [facility] [place] [address]- Care Team Related Persons Name: MELY SERNA Address: Home [address] [place] [address] [place] Name: MELY SERNA Address: Home [address] [place] [address] [place] Name: MELY SERNA Address: Home [address] [place] [address] [place] Name: MELY SERNA Address: Home [address] [place] [address] [place] Name: MELY SERNA Address: Home [address] [place] [address] [place] Name: MELY SERNA Address: Home [address] [place] [address] [place] Name: MELY SERNA Address: Home [address] Care Team Personnel Name: ULISES HERMOSILLO MD Member Role: Primary Care Physician Address: Address: [address] [place] [address]- [place] Name: MD JOSE ROBERTO COMBS MD Position: ED Physician Member Role: ED Physician Address: [facility] [address] [place] [address]- [place] Care Team Related Persons Name: MELY SERNA Address: Home [address] [place] [address] [place] Name: MELY SERNA Address: Home [address] [place] [address] [place] Name: MELY SERNA Address: Home [address] [place] [address] [place] Name: MELY SERNA Address: Home [address] [place] [address] [place] Name: MELY SERNA Address: Home [address] [place] [address] [place] Name: MELY SERNA Address: Home [address] [place] [address] [place] Name: MELY SERNA Address: Home [address] Goals (unrecognized section and content) Goals [...] BE BASED ON THE PRIMARY CLINICAL RECORDS. [employer] [facility]. provides no warranty or guarantee of the accuracy or completeness of information in this document.
[2025-11-09 08:22] LABS: Hematocrit 28.6 % (37-47); Hemoglobin 8.5 g/dL (12.0-15.0); Mean Corp Hgb Conc 29.7 g/dL (32-36); Mean Corpuscular Volume 79.4 fL (81-99); Mean Platelet Vol. 9.8 fl (6.2-12.0); Platelet Count 535 K/mm3 (150-450); RBC Distribution Width CV 18.0 % (11.6-14.6); RBC Distribution Width SD 52.2 fl (35.1-43.9); Red Blood Count 3.60 M/mm3 (4.2-5.4); White Blood Count 7.3 K/mm3 (4.4-11.0)
== END ==
LOC: OLS.SW 05:00
PROVIDERS: Visit Provider Family Medicine
DX: J44.9 Chronic obstructive pulmonary disease, unspecified (principal)
CPT/HCPCS: 36415; 85027